=== PATIENT | male | born 1985 | race Caucasian/White ===

== ENCOUNTER 2024-11-29 19:53 | Inpatient (IN) | payer MEDICAID, SELFPAY ==
[2024-11-29 19:54] VITALS: BP 125/100; PULSE 92; RESP 24; TEMP 36.2; O2SAT 100; BMI 25.0
[2024-11-29] MEDS: 0.9% Normal Saline (1000mL) 1,000 ML 1000 ML IV (21:19)
--- NOTE | 2024-11-29 21:19 | EDS_ITS ---
HPI History of Present Illness Chief Complaint: Substance Abuse Narrative Narrative: Chief complaint and HPI: 39-year-old male with past medical history of liver cirrhosis secondary to alcohol abuse, anxiety presents for evaluation of alcohol withdrawal and requesting detox. Patient states that he missed multiple doses of his mental health medications. This caused frequent panic attacks in which he started drinking alcohol. He states he has drank for 4 days straight about a half a gallon of vodka a day. He last drank at 1730 tonight. He endorses some nausea and anxiety. He would like detox. Has been through detox in the past. Review of systems: See HPI Medications: As listed on the chart Allergies: As listed on the chart PFSH: Per chart Vital signs: As listed on the chart. Reviewed. Physical exam: Gen: A&O x3, NAD Head: Normocephalic, atraumatic Eyes: No sclera icterus, conjunctiva clear ENT: Dry mucous membranes CV: RRR, no murmurs Resp: Lungs CTA BL, no w/r/c GI: Abd soft, non-distended, non-tender, no r/r/g Musc: Full ROM, no deformity Skin: Warm, dry Neuro: Alert, oriented, grossly intact, sensation intact Psych: Cooperative, appropriate mood and affect [facility] Medical History Anxiety Liver fibrosis Cirrhosis of liver Tourette disease Seizure Home Medications ?Medication ?Instructions ?Recorded ?Last Taken ?Type clonidine HCl 0.1 mg tablet 0.1 mg PO BID 11/29/24 Unk nown History hydroxyzine HCl 25 mg tablet 25 mg PO QHS PRN sleep Unknown History melatonin 10 mg capsule 20 mg PO QHS 11/29/24 Unknow n History methadone 10 mg tablet 140 mg PO DAILY 11/29/24 Unk nown History metoprolol succinate PO DAILY 11/29/24 Unknown Hi story pantoprazole PO BID 11/29/24 Unknown Hist ory venlafaxine 75 mg tablet 75 mg PO DAILY 11/29/24 Unkn own History Allergy/AdvReac Type Severity Reaction Status Date / Time No Known Allergies Allergy Verified 11/29/24 19:54 Social History Smoking Status: Current every day smoker tobacco type: cigarettes EXAM Physical Exam Const Vital Signs: 11/29/24 19:54 11/29/24 21:21 11/29/24 21:21 Temperature 97.2 F L 97.2 F L Temperature Source Temporal Oral Pulse Rate 92 72 70 Respiratory Rate 24 H 16 16 Blood Pressure 125/100 H 145/90 H 145/90 H Blood Pressure Mean 108 108 108 Blood Pressure Source Monitor Blood Pressure Position Semi-Fowlers Blood Pressure Location Right Arm Pulse Ox 100 99 99 Oxygen Delivery Method Room Air Room Air Room Air 11/29/24 22:00 11/29/24 22:46 11/29/24 23:00 Temperature 98.7 F Temperature Source Pulse Rate 78 77 77 Respiratory Rate 16 16 18 Blood Pressure 134/90 H 133/66 H 122/77 H Blood Pressure Mean 104 88 92 Blood Pressure Source Blood Pressure Position Blood Pressure Location Pulse Ox 98 98 97 Oxygen Delivery Method Room Air Room Air 11/30/24 00:00 Temperature Temperature Source Pulse Rate 81 Respiratory Rate 16 Blood Pressure 118/74 Blood Pressure Mean 88 Blood Pressure Source Blood Pressure Position Blood Pressure Location Pulse Ox 98 Oxygen Delivery Method Room Air MDM MDM MDM Narrative Medical decision making narrative: 39-year-old male with past medical history of liver cirrhosis secondary to alcohol abuse, anxiety presents for evaluation of alcohol withdrawal and requesting detox. Patient states that he missed multiple doses of his mental health medications. This caused frequent panic attacks in which he started drinking alcohol. He states he has drank for 4 days straight about a half a gallon of vodka a day. He last drank at 1730 tonight. He endorses some nausea and anxiety. He would like detox. Differential diagnosis includes but is not limited to alcohol intoxication, alcohol withdrawal, requesting alcohol detox, dehydration, EMELY, cirrhosis. NS bolus, Ativan, Zofran ordered for symptoms. Laboratory workup ordered. CBC without leukocytosis. Patient has anemia with hemoglobin of 12.5. Thrombocytopenia with platelet count of 141. INR 1.6. CMP with AST transaminitis at 109. Secondary to his alcohol abuse. No EMELY. Drug screen positive for methadone and THC. Patient is on methadone outpatient. Alcohol level 33.5. Patient will warrant admission for detox. Patient discussed with the hospitalist who accepted admission. Patient was updated on the results and further understand the plan. Impression: 1. Alcohol intoxication with alcohol abuse 2. AST transaminitis 3. Requesting alcohol detox 4. Polysubstance abuse Lab Data Labs: Laboratory Results - last 24 hr 11/29/24 11/29/24 20:14 21:19 WBC 5.8 RBC 4.14 L Hgb 12.5 L Hct 37.0 L MCV 89.4 MCH 30.2 MCHC 33.8 RDW Std Deviation 45.7 H RDW Coeff of Jimy 14.1 Plt Count 141 L MPV 10.1 Immature Gran % (Auto) 0.200 Neut % (Auto) 63.3 Lymph % (Auto) 28.2 [place] % (Auto) 7.5 Eos % (Auto) 0.5 Baso % (Auto) 0.3 Absolute Neuts (auto) 3.6 Absolute Lymphs (auto) 1.62 Nucleated RBC % 0 PT 19.7 H INR 1.6 Sodium 138 Potassium 4.7 Chloride 100 Carbon Dioxide 23.8 Anion Gap 14 BUN 2 L Creatinine 0.55 L Estim Creat Clear Calc 205.80 Est GFR (MDRD) Non-Af 130 BUN/Creatinine Ratio 4.3 L Glucose 87 Calcium 9.7 Total Bilirubin 1.48 H AST 109 H ALT 33 Alkaline Phosphatase 261 H Total Protein 8.1 Albumin 3.8 Globulin 4.3 H Albumin/Globulin Ratio 0.9 Urine Opiates Screen NEGATIVE U Buprenorphine Qual NEGATIVE Ur Oxycodone Screen NEGATIVE Urine Methadone Screen PRESUMPTIVE POSITIVE Urine Fentanyl Screen NEGATIVE Ur Barbiturates Screen NEGATIVE Ur Phencyclidine Scrn NEGATIVE Ur Amphetamines Screen NEGATIVE U Benzodiazepines Scrn NEGATIVE Urine Cocaine Screen NEGATIVE U Cannabinoids Screen PRESUMPTIVE POSITIVE Ethyl Alcohol 33.5 H Discharge Plan Triage Chief Complaint: Substance Abuse ED Provider: Amilcar Dumont Dx/Rx/DC Orders Prescriptions: No Action metoprolol succinate PO DAILY venlafaxine 75 mg tablet 75 mg PO DAILY clonidine HCl 0.1 mg tablet 0.1 mg PO BID hydroxyzine HCl 25 mg tablet 25 mg PO QHS PRN (Reason: sleep) pantoprazole [Protonix] PO BID melatonin 10 mg capsule 20 mg PO QHS methadone 10 mg tablet 140 mg PO DAILY Primary Care Provider: Care Physician,No Primary Referrals: Care Physician,No Primary [Primary Care Provider, Medical] Print Language: Turkmen
[2024-11-29 21:21] VITALS: BP 145/90; PULSE 70; PULSE 72; RESP 16; TEMP 36.2; O2SAT 99
[2024-11-29 21:39] LABS: Barbiturate Urine NEGATIVE (< 200 ng/mL); Benzodiazepine Urine NEGATIVE (< 200 ng/mL); PCP Urine NEGATIVE (< 25 ng/mL); THC Urine PRESUMPTIVE POSITIVE (< 50 ng/mL)
[2024-11-29 21:49] LABS: Hematocrit 37.0 % (40-54); Hemoglobin 12.5 g/dL (13.0-16.5); Immature Granulocytes Count 0.010 X10^3/uL (0.0-0.0); Mean Corp Hgb Conc 33.8 g/dL (32-36); Mean Corpuscular Volume 89.4 fL (80-94); Mean Platelet Vol. 10.1 fl (6.2-12.0); NRBC Flagged by Analyzer 0 % (0-5); Platelet Count 141 K/mm3 (150-450); RBC Distribution Width CV 14.1 % (11.6-14.6); RBC Distribution Width SD 45.7 fl (35.1-43.9); Red Blood Count 4.14 M/mm3 (4.6-6.2); White Blood Count 5.8 K/mm3 (4.4-11.0)
[2024-11-29 22:00] VITALS: BP 134/90; PULSE 78; RESP 16; O2SAT 98
[2024-11-29 22:17] LABS: Prothrombin Time (Protime)PT. 19.7 SECONDS (11.7-14.9)
[2024-11-29 22:30] LABS: Alcohol, Blood (Medical)-Serum 33.5 mg/dL (<=10.0)
[2024-11-29 22:36] LABS: AST(SGOT) 109 U/L (<=37); Alanine Aminotransfer ALT/SGPT 33 U/L (<=46); Albumin, Serum 3.8 g/dL (3.5-5.0); Alkaline Phosphatase 261 U/L (40-129); Anion Gap 14 (5-15); BUN 2 mg/dL (4-19); Calcium,Total 9.7 mg/dL (7.6-11.0); Carbon Dioxide 23.8 mmol/L (21.0-32.0); Chloride 100 mmol/L (98-108); Estimated Creatinine Clearance 205.80 ml/min (50-250); Globulin 4.3 g/dL (2.2-4.2); Glucose 87 mg/dL (70-99); Potassium 4.7 mmol/L (3.3-5.1)
[2024-11-29 22:46] VITALS: BP 133/66; PULSE 77; RESP 16; TEMP 37.1; O2SAT 98
[2024-11-29 22:48] LABS: BUN/Creat Ratio 4.3 RATIO (10-20)
[2024-11-29 23:00] VITALS: BP 122/77; PULSE 77; RESP 18; O2SAT 97
[2024-11-30] VITALS (9 sets, daily range): BP systolic 112–133; BP diastolic 60–79; PULSE 56–81; RESP 16–18; TEMP 36.1–37; O2SAT 97–98; BMI 24.5
--- NOTE | 2024-11-30 00:22 | HP.PCM.HOS_ITS ---
[facility] - General General Date of Admission: 11/30/24 Date of Service: 11/30/24 Chief Complaint: Requesting EtOH Detox. HPI Narrative RORO NIETO, is a 39 M with a past medical history of essential hypertension; on metoprolol and clonidine twice daily, chronic tobacco abuse, history of opiate abuse; on methadone 140 mg daily, history of EtOH abuse; with cirrhosis and history of EtOH detox, history of seizure disorder; currently not on treatment, history of Tourette syndrome, depression; on venlafaxine and GERD; on pantoprazole who presents to [facility] ER requesting EtOH detox. Mr. Nieto reports his symptoms began a few days prior to admission after he missed multiple doses of his mental health medications which caused frequent panic attacks which he states triggered him to start drinking alcohol. He states he has drank ~1/2 gallon of vodka daily for the past 4 days with his last drink at 17:30 hours on the evening of November 29, 2024. He admits to associated nausea and anxiety. In the ER he was noted to have a VENITA of 33.5 mg/dL with UDS positive for methadone and cannabinoids. He was then admitted to the general medical floor for treatment under the EtOH detox protocol for a state that is expected to extend beyond 2 midnights. [facility] Medical History Anxiety Liver fibrosis Cirrhosis of liver Tourette disease Seizure Home Medications ?Medication ?Instructions ?Recorded ?Last Taken ?Type clonidine HCl 0.1 mg tablet 0.1 mg PO BID anxiety 11/10 03/05 Unknown History hydroxyzine HCl 25 mg tablet 25 mg PO QHS PRN sleep Unknown History melatonin 10 mg capsule 20 mg PO QHS sleep 11/29/24 Unknown History methadone 10 mg tablet 140 mg PO DAILY opiates and 11/29/24 Unknown History alcohol cravings and anxiety metoprolol succinate 50 mg PO DAILY palpitations 11/29/24 Unknown History pantoprazole 20 mg PO BID gerd 11/29/24 U nknown History venlafaxine 75 mg tablet 75 mg PO DAILY anxiety 11/29 Unknown History Allergy/AdvReac Type Severity Reaction Status Date / Time No Known Allergies Allergy Verified 11/29/24 19:54 Social History Smoking Status: Current every day smoker tobacco type: cigarettes ROS ROS Narrative Review of Systems: Constitutional: Patient denies fever or chills. Eyes: Patient denies changes in vision or discharge from eyes. ENT: Patient denies runny nose, sore throat or ear pain. Resp: Patient denies shortness of breath or cough. CV: Patient denies chest pain, palpitations, heart racing or lower extremity edema. GI: Patient admits to nausea but he denies vomiting, abdominal pain, constipation or diarrhea. : Patient denies dysuria or hematuria. MSK: Patient denies arthralgias or myalgias. Skin: Patient denies rash, abscess, wounds or jaundice. Psych: Patient admits to depression with anxiety and panic attacks triggering drinking as per HPI. He denies SI or HI. Neuro: Patient denies headache, paresthesias, hallucinations, seizures or focal neurologic deficits. Allergy: Patient denies lip swelling, tongue swelling or urticaria. Hematology: Patient denies easy bleeding or easy bruisability. Endocrinology: Patient denies polyuria, polydipsia, polyphagia or heat/cold intolerance. 14 point ROS otherwise negative except for positives noted above HPI. Vital Signs Vital Signs Vital Signs: 11/29/24 19:54 11/29/24 21:21 11/29/24 21:21 Temperature 97.2 F L 97.2 F L Temperature Source Temporal Oral Pulse Rate 92 72 70 Respiratory Rate 24 H 16 16 Blood Pressure 125/100 H 145/90 H 145/90 H Blood Pressure Mean 108 108 108 Blood Pressure Source Monitor Blood Pressure Position Semi-Fowlers Blood Pressure Location Right Arm Pulse Ox 100 99 99 Oxygen Delivery Method Room Air Room Air Room Air 11/29/24 22:00 11/29/24 22:46 11/29/24 23:00 Temperature 98.7 F Temperature Source Pulse Rate 78 77 77 Respiratory Rate 16 16 18 Blood Pressure 134/90 H 133/66 H 122/77 H Blood Pressure Mean 104 88 92 Blood Pressure Source Blood Pressure Position Blood Pressure Location Pulse Ox 98 98 97 Oxygen Delivery Method Room Air Room Air 11/30/24 00:00 Temperature Temperature Source Pulse Rate 81 Respiratory Rate 16 Blood Pressure 118/74 Blood Pressure Mean 88 Blood Pressure Source Blood Pressure Position Blood Pressure Location Pulse Ox 98 Oxygen Delivery Method Room Air Weight Weight: 190 lb 0.615 oz Body Mass Index (BMI) 25.0 Physical Exam Const alert, oriented x3, no apparent distress, average body habitus and healthy appearing General Appearance: cooperative HEENT normocephalic, head/scalp atraumatic, hearing grossly normal bilaterally and moist oral mucous membranes Eyes PERRL, EOMs intact bilaterally and conjunctivae normal Neck no lymphadenopathy, supple and no JVD Resp normal respiratory effort, no retractions, no use of accessory muscles and clear to auscultation bilaterally Cardio regular rate and regular rhythm GI normal to inspection, nondistended, normoactive bowel sounds, soft to palpation, non-tender and non-distended Extremity normal to inspection, full ROM and no clubbing, cyanosis or edema Skin Skin Narrative: Patient has evidence of rash, abscess, wounds or jaundice. Neuro oriented x3, CN's II-XII intact bilaterally, moves all extremities and no focal motor deficits Sensorium / Orientation: awake, alert, oriented to person, oriented to place and oriented to time Speech: speech normal Psych affect normal Results Medical Records Data Attestation: I reviewed the patient's medical records Lab / Micro Data Attestation: I reviewed the patient's lab results. 11/29/24 21:19 11/29/24 21:19 Labs: Laboratory Results - last 24 hr 11/29/24 20:14: Urine Opiates Screen NEGATIVE, U Buprenorphine Qual NEGATIVE, Ur Oxycodone Screen NEGATIVE, Urine Methadone Screen PRESUMPTIVE POSITIVE, Urine Fentanyl Screen NEGATIVE, Ur Barbiturates Screen NEGATIVE, Ur Phencyclidine Scrn NEGATIVE, Ur Amphetamines Screen NEGATIVE, U Benzodiazepines Scrn NEGATIVE, Urine Cocaine Screen NEGATIVE, U Cannabinoids Screen PRESUMPTIVE POSITIVE 11/29/24 21:19: WBC 5.8, RBC 4.14 L, Hgb 12.5 L, Hct 37.0 L, MCV 89.4, MCH 30.2, MCHC 33.8, RDW Std Deviation 45.7 H, RDW Coeff of Jimy 14.1, Plt Count 141 L, MPV 10.1, Immature Gran % (Auto) 0.200, Neut % (Auto) 63.3, Lymph % (Auto) 28.2, [place] % (Auto) 7.5, Eos % (Auto) 0.5, Baso % (Auto) 0.3, Absolute Neuts (auto) 3.6, Absolute Lymphs (auto) 1.62, Nucleated RBC % 0, PT 19.7 H, INR 1.6, Sodium 138, Potassium 4.7, Chloride 100, Carbon Dioxide 23.8, Anion Gap 14, BUN 2 L, C reatinine 0.55 L, Estim Creat Clear Calc 205.80, Est GFR (MDRD) Non-Af 130, B UN/Creatinine Ratio 4.3 L, Glucose 87, Calcium 9.7, Total Bilirubin 1.48 H, AST 109 H, ALT 33, Alkaline Phosphatase 261 H, Total Protein 8.1, Albumin 3.8, G lobulin 4.3 H, Albumin/Globulin Ratio 0.9, Ethyl Alcohol 33.5 H Assessment & Plan Assessment/Plan (1) Chronic alcohol abuse: (2) History of drug abuse: (3) Tobacco abuse: (4) Depression: QUALIFIERS: Depression Type: unspecified Qualified Code(s): F32.A - Depression, unspecified (5) Anxiety disorder with panic attacks: PLAN: Plan 1. Impending EtOH withdrawal in the setting of Chronic EtOH Abuse; with cirrhosis with a VENITA of 33.5 mg/dL present on admission - Admit to general medical floor for treatment under the EtOH detoxification protocol primarily consisting of phenobarbital taper, thiamine, folate and other supportive medications. EtOH cessation will be strongly encouraged. Finally, we will consult case management see this patient on rounds in the a.m. to help refer him to the [facility] program without appreciated advanced 2. UDS positive for methadone and cannabinoids complicating #1 - Continue methadone to prevent concomitant opiate withdrawal. Cannabis cessation will be strongly encouraged. 3. Tobacco Abuse compounding #1 & #2 - Tobacco Cessation will be strongly encouraged with Nicotine patch offered to control cravings. 4. Depression with anxiety and panic attacks; on venlafaxine - Resume venlafaxine as previous. 5. Essential hypertension; on metoprolol and clonidine twice daily - Maintain home regimen as before. 6. History of seizure disorder; currently not on treatment - Give IV lorazepam prn for breakthrough seizure activity. 7. History of Tourette syndrome - Noted with no evidence of tics or verbal outbursts. 8. GERD; on pantoprazole - Maintain PPI. 9. DVT prophylaxis - Enoxaparin 40 mg sq daily plus up ad cameron. Total time: Approximately (but not less than) 55 minutes. Charges/Coding Visit Charges Inpatient E&M: 64409 Init Hosp L2
--- NOTE | 2024-11-30 07:45 | PN.HOSP_ITS ---
Reason for Visit Chief Complaint: Requesting EtOH Detox. Subjective Subjective Feeling terror. Objective Data Objective Data Vital Signs: Vital Signs Temp Pulse Resp BP Pulse Ox O2 Del Method 36.6 C 71 18 121/79 H 98 Room Air 11/30/24 05:47 11/30/24 05:47 11/30/24 05:47 11/30/24 05:47 11/30/24 05:47 11/30/24 05:47 Oxygen Delivery Method Room Air Weight: 84.323 kg Body Mass Index (BMI) 24.5 Intake & Output: Intake and Output for Last 24 Hours 11/28/24 11/29/24 11/30/24 23:59 23:59 23:59 Intake Total 1000 / 1000 440 / 440 Balance 1000 / 1000 440 / 440 Lab / Micro Data 11/29/24 21:19 11/29/24 21:19 Labs: Laboratory Results - last 24 hr 11/29/24 20:14: Urine Opiates Screen NEGATIVE, U Buprenorphine Qual NEGATIVE, Ur Oxycodone Screen NEGATIVE, Urine Methadone Screen PRESUMPTIVE POSITIVE, Urine Fentanyl Screen NEGATIVE, Ur Barbiturates Screen NEGATIVE, Ur Phencyclidine Scrn NEGATIVE, Ur Amphetamines Screen NEGATIVE, U Benzodiazepines Scrn NEGATIVE, Urine Cocaine Screen NEGATIVE, U Cannabinoids Screen PRESUMPTIVE POSITIVE 11/29/24 21:19: WBC 5.8, RBC 4.14 L, Hgb 12.5 L, Hct 37.0 L, MCV 89.4, MCH 30.2, MCHC 33.8, RDW Std Deviation 45.7 H, RDW Coeff of Jimy 14.1, Plt Count 141 L, MPV 10.1, Immature Gran % (Auto) 0.200, Neut % (Auto) 63.3, Lymph % (Auto) 28.2, [place] % (Auto) 7.5, Eos % (Auto) 0.5, Baso % (Auto) 0.3, Absolute Neuts (auto) 3.6, Absolute Lymphs (auto) 1.62, Nucleated RBC % 0, PT 19.7 H, INR 1.6, Sodium 138, Potassium 4.7, Chloride 100, Carbon Dioxide 23.8, Anion Gap 14, BUN 2 L, C reatinine 0.55 L, Estim Creat Clear Calc 205.80, Est GFR (MDRD) Non-Af 130, B UN/Creatinine Ratio 4.3 L, Glucose 87, Calcium 9.7, Total Bilirubin 1.48 H, AST 109 H, ALT 33, Alkaline Phosphatase 261 H, Total Protein 8.1, Albumin 3.8, G lobulin 4.3 H, Albumin/Globulin Ratio 0.9, Ethyl Alcohol 33.5 H Physical Exam Const alert and no apparent distress HEENT head/scalp atraumatic and moist oral mucous membranes Resp normal respiratory effort, no retractions, no use of accessory muscles and clear to auscultation bilaterally Cardio regular rate, regular rhythm, S1 normal heart sound and S2 normal heart sound GI normal to inspection, nondistended, normoactive bowel sounds, soft to palpation, non-tender and non-distended Extremity normal to inspection and full ROM Neuro Sensorium / Orientation: awake and alert Assessment & Plan Assessment/Plan (1) Chronic alcohol abuse: (2) History of drug abuse: (3) Tobacco abuse: (4) Depression: QUALIFIERS: Depression Type: unspecified Qualified Code(s): F32.A - Depression, unspecified (5) Anxiety disorder with panic attacks: PLAN: Plan Alcohol withdrawal * on phenobarbital taper * thiamine and folate * addiction medicine to see UDS positive for methadone and cannabinoids complicating sobriety Chronic medical conditions: * Tobacco Abuse compounding. Tobacco Cessation will be strongly encouraged with Nicotine patch offered to control cravings. * Depression with anxiety and panic attacks; on venlafaxine. Recommend he follow up * Essential hypertension; on metoprolol and clonidine twice daily - Maintain home regimen as before. * History of seizure disorder; currently not on treatment - Give IV lorazepam prn for breakthrough seizure activity. * History of Tourette syndrome - Noted with no evidence of tics or verbal outbursts. * GERD; on pantoprazole - Maintain PPI. * Cirrhosis: told he has cirrhosis by his GI physicians in [place]. Advised ongoing discontinuation of alcohol. DVT prophylaxis - Enoxaparin 40 mg sq daily plus up ad cameron. Greater than 35 minutes of which greater than 50% of the time was spent at bedside discussing with him about his depression/anxiety, treatment plan for alcohol withdrawal. Charges/Coding Visit Charges Inpatient E&M: 72815 Subs Hosp L2
[2024-11-30] MEDS: Metoprolol(XL)Succ 25 MG Tablet PO (08:21)
[2024-11-30] MEDS: Nicotine (PBKC) 14 MG Patch TD (08:22)
[2024-11-30] MEDS: Thiamine Hydrochloride 100 MG Tablet PO (08:23)
[2024-11-30] MEDS: Ensure Plus High Protein 120 ML LIQUID PO (08:26)
--- NOTE | 2024-11-30 11:23 | NURSING ---
Pt is upset initially that dietary staff was in to take meal orders. States that he gets chronic panic attacks and that he woke up and not able to eat. Pt states that he is upset his aunt had . Pt is given his phenobarbital and has return to rest.
--- NOTE | 2024-11-30 14:36 | CHAPLAIN ---
Type of Pastoral Visit ___ Initial Visit ___ Follow-up Visit ___ On-call Visit ___ General Patient Visit ___ Spiritual Assessment ___ Family Conference ___ Bereavement ___ Rapid Response ___ Code Blue ___ Other (describe below) Pastoral Care Referral From ___ Patient ___ Family ___ Nurse ___ Physician ___ Shift Mechanic ___ Manager Express ___ Other (describe below) Sacrament/Intervention ___ Active listening ___ Anointing ___ Islam ___ Bereavement ___ Communion ___ Ashlyn exploration ___ ___ Life review ___ Prayer ___ Reconciliation ___ Sacrament of Sick ___ Supportive presence ___ Wedding ___ Other (describe below) Pastoral Comments patient was asleep but awakened to his name; pt says that he is too tired and is not clear in thinking to talk at this time; offer of return tomorrow is accepted
[2024-11-30] MEDS: MELATONIN 10 MG TABLET 20 MG PO (21:29)
[2024-12-01 02:15] VITALS: BP 110/64; PULSE 55; RESP 16; TEMP 36.3; O2SAT 99
--- NOTE | 2024-12-01 08:00 | PN.HOSP_ITS ---
Reason for Visit Chief Complaint: Requesting EtOH Detox. Subjective Subjective Feeling better. Endorses that he had been having n/v for several days, unable to take medications, then drank heavily for 2 days. Today feels better, has been eating. Objective Data Objective Data Vital Signs: Vital Signs Temp Pulse Resp BP Pulse Ox O2 Del Method 36.3 C L 55 L 16 110/64 99 Room Air 12/01/24 02:15 12/01/24 02:15 12/01/24 02:15 12/01/24 02:15 12/01/24 02:15 12/01/24 02:15 Oxygen Delivery Method Room Air Weight: 84.323 kg Body Mass Index (BMI) 24.5 Intake & Output: Intake and Output for Last 24 Hours 11/29/24 11/30/24 12/01/24 23:59 23:59 23:59 Intake Total 1000 / 1000 1890 / 1890 Balance 1000 / 1000 1890 / 1890 Lab / Micro Data 11/29/24 21:19 11/29/24 21:19 Physical Exam Const alert and no apparent distress Constitutional Narrative: up in bed. comfortable. nontoxic. afebrile. Extremity normal to inspection Neuro Sensorium / Orientation: awake and alert Assessment & Plan Assessment/Plan (1) Chronic alcohol abuse: (2) History of drug abuse: (3) Tobacco abuse: (4) Depression: QUALIFIERS: Depression Type: unspecified Qualified Code(s): F32.A - Depression, unspecified (5) Anxiety disorder with panic attacks: PLAN: Plan Alcohol withdrawal * on phenobarbital taper * thiamine and folate * uncomplicated. Per patient, had only been drinking heavily for 2 days. He will follow up with [facility] for further IOP. UDS positive for methadone and cannabinoids complicating sobriety Chronic medical conditions: * Tobacco Abuse compounding. Tobacco Cessation will be strongly encouraged with Nicotine patch offered to control cravings. * Depression with anxiety and panic attacks; on venlafaxine. Recommend he follow up * Essential hypertension; on metoprolol and clonidine twice daily - Maintain home regimen as before. * History of seizure disorder; currently not on treatment - Give IV lorazepam prn for breakthrough seizure activity. * History of Tourette syndrome - Noted with no evidence of tics or verbal outbursts. * GERD; on pantoprazole - Maintain PPI. * Cirrhosis: told he has cirrhosis by his GI physicians in [place]. Advised ongoing discontinuation of alcohol. DVT prophylaxis - Enoxaparin 40 mg sq daily plus up ad cameron.
[2024-12-01] MEDS: Ensure Plus High Protein 120 ML LIQUID PO (08:38)
[2024-12-01] MEDS: Thiamine Hydrochloride 100 MG Tablet PO (08:39)
[2024-12-01] MEDS: Nicotine (PBKC) 14 MG Patch TD (08:40)
[2024-12-01 08:50] VITALS: BP 110/77; PULSE 56; RESP 16; TEMP 36.9; O2SAT 98
--- NOTE | 2024-12-01 09:59 | DS.PCM_ITS ---
Providers Date of Admission: 11/30/24 Primary Care Physician: Michelle Primary Care Phys Reason For Visit: ETOH DETOX Diagnosis Discharge Diagnosis (1) Chronic alcohol abuse: Status: Chronic Code(s): F10.10 - Alcohol abuse, uncomplicated (2) History of drug abuse: Status: Acute Code(s): F19.11 - Other psychoactive substance abuse, in remission (3) Tobacco abuse: Status: Acute Code(s): Z72.0 - Tobacco use (4) Depression: Status: Acute Code(s): F32.A - Depression, unspecified Qualifiers: Depression Type: unspecified Qualified Code(s): F32.A - Depression, unspecified (5) Anxiety disorder with panic attacks: Status: Acute Code(s): F41.9 - Anxiety disorder, unspecified Plan Alcohol withdrawal * on phenobarbital taper * thiamine and folate * uncomplicated. Per patient, had only been drinking heavily for 2 days. He will follow up with [facility] for further IOP. * pt reports that he takes methadone for his alcohol hisotory and anxiety. UDS positive for methadone and cannabinoids complicating sobriety Chronic medical conditions: * Tobacco Abuse compounding. Tobacco Cessation will be strongly encouraged with Nicotine patch offered to control cravings. * Depression with anxiety and panic attacks; on venlafaxine. Recommend he follow up * Essential hypertension; on metoprolol and clonidine twice daily - Maintain home regimen as before. * History of seizure disorder; currently not on treatment - Give IV lorazepam prn for breakthrough seizure activity. * History of Tourette syndrome - Noted with no evidence of tics or verbal outbursts. * GERD; on pantoprazole - Maintain PPI. * Cirrhosis: told he has cirrhosis by his GI physicians in [place]. Advised ongoing discontinuation of alcohol. DVT prophylaxis - Enoxaparin 40 mg sq daily plus up ad cameron. Medications at Discharge Home Medications clonidine HCl 0.1 mg tablet 0.1 mg PO BID anxiety 11/29/24 hydroxyzine HCl 25 mg tablet 25 mg PO QHS PRN sleep 11/29/24 melatonin 10 mg capsule 20 mg PO QHS sleep 11/29/24 methadone 10 mg tablet 140 mg PO DAILY opiates and alcohol cravings and anxiety 11/29/24 metoprolol succinate 50 mg PO DAILY palpitations 11/29/24 pantoprazole 20 mg PO BID gerd 11/29/24 venlafaxine 75 mg tablet 75 mg PO DAILY anxiety 11/29/24 Hospital Course Operations None Procedures None Weight / BMI Weight Weight: 84.323 kg Body Mass Index (BMI) 24.5 ABG / Lab / Microbiology Data 11/29/24 21:19 11/29/24 21:19 D/C Instructions DC O2, CPAP, BIPAP Needs Home O2 Discharge instructions: No Meaningful Use Info Meaningful Use Meaningful Use Diagnoses (Choose all that apply): None applicable Discharge Plan Admission Admit Date/Time: 11/30/24 01:34 Primary Reason for Your Visit: alcohol withdrawal. Attending Provider: Joe Mcmillan Primary Care Provider: Orquidea Reid,Michelle Primary Consulting Providers: Lázaro Brush Discharge Orders/Prescriptions Prescriptions: Continued metoprolol succinate 50 mg PO DAILY venlafaxine 75 mg tablet 75 mg PO DAILY clonidine HCl 0.1 mg tablet 0.1 mg PO BID hydroxyzine HCl 25 mg tablet 25 mg PO QHS PRN (Reason: sleep) pantoprazole [Protonix] 20 mg PO BID melatonin 10 mg capsule 20 mg PO QHS methadone 10 mg tablet 140 mg PO DAILY Referrals / Follow Up: Care Physician,No Primary [Primary Care Provider, Medical] Disposition Disposition (needs filled in before D/C Order can be placed): Home, Self Care Charges/Coding Visit Charges Inpatient E&M: 03387 Disch Hosp
--- NOTE | 2024-12-01 10:22 | PHA.DC.MR.R ---
Pharmacy MA Med Reconciliation Pharmacy Service has performed discharge medication reconciliation for this patient. The patient's discharge medication list was reviewed for discrepancies and discrepancies were resolved. Medications at Discharge Home Medications clonidine HCl 0.1 mg tablet 0.1 mg PO BID anxiety 11/29/24 hydroxyzine HCl 25 mg tablet 25 mg PO QHS PRN sleep 11/29/24 melatonin 10 mg capsule 20 mg PO QHS sleep 11/29/24 methadone 10 mg tablet 140 mg PO DAILY opiates and alcohol cravings and anxiety 11/29/24 metoprolol succinate 50 mg PO DAILY palpitations 11/29/24 pantoprazole 20 mg PO BID gerd 11/29/24 venlafaxine 75 mg tablet 75 mg PO DAILY anxiety 11/29/24
--- NOTE | 2024-12-01 10:46 | CASEMGMT ---
Social Work- SW provided transportation information including for Caitlyn GERMAN Pt able to call and schedule independently. VANITA Christensen
[2024-12-01 11:59] VITALS: BP 122/70; PULSE 59; RESP 18; TEMP 36.9; O2SAT 98
--- NOTE | 2024-12-01 13:15 | CHAPLAIN ---
Type of Pastoral Visit ___ Initial Visit _x__ Follow-up Visit ___ On-call Visit ___ General Patient Visit ___ Spiritual Assessment ___ Family Conference ___ Bereavement ___ Rapid Response ___ Code Blue ___ Other (describe below) Pastoral Care Referral From _x__ Patient ___ Family ___ Nurse ___ Physician ___ Fabrication Specialist ___ Tank Furnace Operator ___ Other (describe below) Sacrament/Intervention _x__ Active listening ___ Anointing ___ Mormonism ___ Bereavement ___ Communion ___ Ashlyn exploration ___ ___ Life review ___ Prayer ___ Reconciliation ___ Sacrament of Sick _x__ Supportive presence ___ Wedding ___ Other (describe below) Pastoral Comments patient is more alert and awake today than yesterday; pt is soon to be discharged; pt says that he is feeling better and has good support for going home; pt denies having further worries or needs; pt states that he has a ashlyn community that is helpful to him; affirmation and encouragement given
== END 2024-12-01 12:15 | disposition home or self-care (01) | DRG 775 ==
LOC: ED 21:47 → MS3 11-30 01:42
PROVIDERS: Admitting Provider Internal Medicine; Emergency Provider Surgery
DX: F10.139 Alcohol abuse with withdrawal, unspecified (principal); F17.210 Nicotine dependence, cigarettes, uncomplicated; K74.60 Unspecified cirrhosis of liver; G40.909 Epilepsy, unspecified, not intractable, without status epilepticus; I10 Essential (primary) hypertension; F32.A Depression, unspecified; K21.9 Gastro-esophageal reflux disease without esophagitis; F95.2 Tourette's disorder; F41.0 Panic disorder [episodic paroxysmal anxiety]; Z79.899 Other long term (current) drug therapy; Y90.1 Blood alcohol level of 20-39 mg/100 ml
CPT/HCPCS: 80053; 80307; 82077; 85025; 85610; 97802; 99285; A4216; J2405

== ENCOUNTER 2025-02-05 18:45 | Inpatient (IN) | payer MEDICAID, SELFPAY ==
[2025-02-05 18:45] VITALS: BP 159/98; PULSE 112; RESP 18; TEMP 36.8; O2SAT 98; BMI 24.0
--- NOTE | 2025-02-05 18:55 | EDS_ITS ---
HPI History of Present Illness Chief Complaint: [facility]H [facility] Medical History Anxiety Liver fibrosis Cirrhosis of liver Tourette disease Seizure Home Medications ?Medication ?Instructions ?Recorded ?Last Taken ?Type clonidine HCl 0.1 mg tablet 0.1 mg PO BID anxiety 11/10 03/05 Unknown History melatonin 10 mg capsule 20 mg PO QHS sleep 11/29/24 Unknown History venlafaxine 75 mg tablet 75 mg PO DAILY anxiety 11/29 Unknown History hydroxyzine HCl 50 mg tablet 50 mg PO TID 02/05/25 Unk nown History metoprolol succinate 50 mg 50 mg PO DAILY 02/05/25 Unk nown History tablet,extended release 24 hr ondansetron 4 mg disintegrating 4 mg PO Q8H PRN PRN na usea/vomiting 02/05/25 Unknown History tablet pantoprazole 20 mg tablet,delayed 20 mg PO Q12H Unknown History release (Protonix) Allergy/AdvReac Type Severity Reaction Status Date / Time No Known Allergies Allergy Verified 02/05/25 18:46 Surgical History (Updated 02/05/25 @ 19:[address] Bessy Cowan MD) S/P appendectomy Social History housing: homeless Smoking Status: Current every day smoker tobacco type: cigarettes alcohol intake: current alcohol intake frequency: 3 or more drinks per day Alcohol type: hard liquor details: 1-2 gallon vodka daily. substance use type: crack/cocaine, opiates, methamphetamine and other details: Reports using crack/cocaine, methamphetamine, fentanyl only occasionally. EXAM Physical Exam Const Vital Signs: 02/05/25 18:45 Temperature 98.3 F Temperature Source Oral Pulse Rate 112 H Respiratory Rate 18 Blood Pressure 159/98 H Blood Pressure Mean 118 Pulse Ox 98 Oxygen Delivery Method Room Air MDM MDM MDM Narrative Medical decision making narrative: HISTORY OF PRESENT ILLNESS: Chief complaint: Alcohol detox 39-year-old male history of alcohol abuse, polysubstance abuse, GERD, anxiety, liver fibrosis, liver cirrhosis, Tourette's disease and seizure presents with request for alcohol detox. Patient states he drinks daily. Last week was prior to arrival. Notes he has severe anxiety. Notes chronic abdominal pain. Notes vomiting blood. Denies history of esophageal varices. REVIEW OF SYSTEMS: Pertinent positives: Seizure Pertinent negatives: Chest pain, shortness of breath, syncope PHYSICAL EXAM: Nursing triage notes reviewed, Vital signs reviewed Constitutional: please see [facility] HENT: MMM Eyes: Pupils equal round and reactive to light, Extraocular muscles intact Neck: No stridor, no JVD, full neck ROM Lungs: Clear to auscultation, No wheezing or rales. No increased work of breathing, no conversational dyspnea, no accessory muscle use, no nasal flaring. No respiratory distress noted Heart: Regular rate and rhythm, No murmurs, No rubs and No gallops, 2+ distal pulses (radial, femoral, posterior tibial) in all extremities Abdomen: Soft, there is no tenderness, rigidity, rebound or guarding, no obvious peritoneal signs, no palpable pulsatile abdominal masses, no auscultated abdominal bruit : No CVAT Extremities: No edema Neuro: No new focal neurological deficits, cranial nerves II through XII intact, 5/5 strength in all present extremities. Intact sensation to light touch in all present extremities, 2+ reflexes bilateral patella tendons. Skin: No rash or lesions noted MEDICAL DECISION MAKING: Chief Complaint: please see [facility] External records reviewed: Reviewed prior inpatient records. Patient is admitted for alcohol detox in November 2024 Factors affecting care: As per [facility] Social determinants of health: History of alcohol abuse History obtained from others: none Consults: Internal medicine (Dr. Cowan) [facility] Narrative: Patient was initially hypertensive with a blood pressure 159/98, tachycardic with a heart rate of 112, otherwise afebrile and nontoxic-appearing. Exam Obtain medical clearance labs and gave empiric Ativan and phenobarbital given initial tachycardia and hypertension ALL IMAGES (IF OBTAINED) HAVE BEEN PERSONALLY REVIEWED AND INTERPRETED BY MYSELF. EKG with normal sinus rhythm rate of 79, left ax deviation, prolonged QTc 493, no STEMI Serum alcohol elevated consistent with acute intoxication CBC without leukocytosis, severe anemia, no thrombocytopenia. BMP with mild hypokalemia otherwise no significant Obion abnormalities, EMELY, signs of metabolic acidosis or endorgan hypoperfusion LFTs consistent with cirrhosis Urine tox cream pending Lipase is wnl indicating no pancreatic inflammation. The synthesis of the patient's history, physical exam, labs images suggest need for alcohol detox in inpatient setting. Discussed with hospitalist who agreed to admit the patient to a rehab program. The patient and/or family, caregivers express understanding. The patient and/or family, caregivers agrees with the plan. Shared decision making: I will have a discussion with the patient and or visitors regarding risk/benefits of further testing or admission. They will be made aware of of the risk/benefits inherent in this decision they will be given the opportunity to voice understanding. Total critical care time today provided was at least 0 minutes. This excludes separately billable procedures. Critical care time (if documented) is secondary to the patient having high probability of clinically significant/life threatening deterioration in the patient's condition which required my urgent intervention. Impression: 1. Encounter for admission to alcohol detoxification program 2. History of alcohol abuse 3. History of liver cirrhosis Dispo: Admit to [facility] This note was generated with [employer] dictation software. It may contain incorrect words, spelling, and punctuation that were not noted in review of the chart prior to signing. Discharge Plan Triage Chief Complaint: ETOH Intox Other Complaint: Substance Abuse ED Provider: Kulwinder Alva Dx/Rx/DC Orders Primary Care Provider: Care Physician,No Primary
--- NOTE | 2025-02-05 19:06 | EKG12_ITS ---
Test Reason : DYSRHYTHMIA Blood Pressure : */* mmHG Vent. Rate : 79 BPM Atrial Rate : 79 BPM P-R Int : 178 ms QRS Dur : 90 ms QT Int : 430 ms P-R-T Axes : 52 -1 24 degrees QTcB Int : 493 ms Normal sinus rhythm Minimal voltage criteria for LVH, may be normal variant ( R in aVL ) QTcB >= 480 msec Abnormal ECG Confirmed by Lázaro Aguillon ([id number]), newspaper photo editor VILMA YA ([id number]) on 02/07/2025 9:58:29 AM Referred By: Confirmed By: Lázaro Aguillon
--- NOTE | 2025-02-05 19:06 | RAD_ITS ---
PROCEDURE: CHEST 1 VIEW (PORTABLE) 02/05/2025 REASON FOR EXAM: COUGH TECHNIQUE: Frontal view of the chest. FINDINGS: There are no focal opacities, pleural effusions, or pneumothoraces. The heart size is unremarkable. The upper abdomen is unremarkable. The osseous structures are intact. RAD/Chest 1 View (Portable) IMPRESSION: No acute cardiopulmonary findings. Reading Location: [id number]
[2025-02-05 19:18] VITALS: BP 166/84; PULSE 85; RESP 16; TEMP 36.8; O2SAT 100
--- NOTE | 2025-02-05 19:19 | PCM.HP.STD ---
HPI - General General Date of Admission: 02/05/25 Date of Service: 02/05/25 Chief Complaint: Requesting EtOH detoxification HPI Narrative The patient is a 36 y/o M w/ PMHx: Chronic tachycardia/palpitations, Polysubstance abuse (uses varies agents including crack/meth/fentanyl but reportedly not regularly and denies wanting any detox for this or requiring any detox for specifically opiate use), EtOH abuse (~1-2 gallon vodka daily, drinking upon arrival into the ED), Chronic alcoholic associated pancreatitis, PTSD/Anxiety and Depression/Tourette's disease, Tobacco use, EtOH cirrhosis/liver fibrosis secondary to EtOH abuse who presents to the [facility] on 02/05/25 w/ requested EtOH detoxification with severe anxiety and phobia withdrawing which had prompted him to bring his bottle of vodka into the ED and continued to drink. He does report chronic pancreatitis associated with his alcohol abuse and has intermittent nausea and vomiting frequently surviving on ensures. In the ED workup included T98.3, heart 112, BP 159/98, respiratory rate 18, 98% on room air with most recent repeat vitals T98.3, heart rate 85, BP 166/84, respiratory rate 16, 100% room air, pending of alcohol level, lipase, CBC, BMP, liver profile, UDS upon request evaluation of patient. Given patient significant anxiety and agitation in the ED while awaiting level return patient administered phenobarbital 97.2 mg p.o. x 1 and Ativan 2 mg IV x 1. [facility] Medical History Polysubstance abuse Tobacco use Anxiety and depression PTSD (post-traumatic stress disorder) History of seizure due to alcohol withdrawal Liver fibrosis Cirrhosis of liver Tourette disease Home Medications ?Medication ?Instructions ?Recorded ?Last Taken ?Type clonidine HCl 0.1 mg tablet 0.1 mg PO BID anxiety 11/29/24 Unknown History melatonin 10 mg capsule 20 mg PO QHS sleep 11/29/24 Unknown History venlafaxine 75 mg tablet 75 mg PO DAILY anxiety 11/29/24 Unknown History hydroxyzine HCl 50 mg tablet 50 mg PO TID 02/05/25 Unknown History metoprolol succinate 50 mg 50 mg PO DAILY 02/05/25 Unknown History tablet,extended release 24 hr ondansetron 4 mg disintegrating 4 mg PO Q8H PRN PRN nausea/vomiting 02/05/25 Unknown History tablet pantoprazole 20 mg tablet,delayed 20 mg PO Q12H 02/05/25 Unknown History release (Protonix) Allergy/AdvReac Type Severity Reaction Status Date / Time No Known Allergies Allergy Verified 02/05/25 18:46 adopted (Does not know his maternal or paternal family history, adopted.) Surgical History S/P appendectomy Social History (Updated 02/05/25 @ 19:[address] Bessy Cowan MD) housing: homeless Smoking Status: Current every day smoker tobacco type: cigarettes Smoking packs per day: 1 Smoking cigarettes per day: 20.0 alcohol intake: current alcohol intake frequency: 3 or more drinks per day Alcohol type: hard liquor details: 1-2 gallon vodka daily. substance use type: crack/cocaine, opiates, methamphetamine and other details: Reports using crack/cocaine, methamphetamine, fentanyl only occasionally. ROS ROS Narrative Admission Review of Systems: CONSTITUTIONAL: No weight loss, fever, chills, + weakness or fatigue. HEENT: Eyes: No visual loss, blurred vision, double vision or yellow sclerae. Ears, Nose, Throat: No hearing loss, sneezing, congestion, runny nose or sore throat. SKIN: No rash or itching, lesions, wounds except + occasional stage ecchymoses, abrasions.. CARDIOVASCULAR: No chest pain, chest pressure or chest discomfort, palpitations, edema, orthopnea, syncopal events. RESPIRATORY: No shortness of breath, cough or sputum, wheezing, hemoptysis. GASTROINTESTINAL: + Intermittent nausea and emesis with chronic pancreatitis, loose stools chronically, occasional epigastric discomfort. No anorexia, melena, BRBPR. GENITOURINARY: No dysuria, frequency, urgency or retention. NEUROLOGICAL: + History of alcohol withdrawal seizures previously. No headache, dizziness, syncope, paralysis, ataxia, numbness or tingling in the extremities, focal weakness, change in bowel or bladder control. MUSCULOSKELETAL: + muscle, back pain, joint pain or stiffness. HEMATOLOGIC: + Unclear if any anemia history, currently denying, easy bleeding/bruising. LYMPHATICS: No enlarged nodes. No history of splenectomy. PSYCHIATRIC: + History of anxiety and depression/PTSD. ENDOCRINOLOGIC: No reports of sweating, cold or heat intolerance. No polyuria or polydipsia. ALLERGIES: No history of asthma, hives, eczema or rhinitis. Patient's Goals Of Care . What would you like to achieve or improve as a result of your hospital stay?: Successfully undergo EtOH withdrawal treatment. Vital Signs Vital Signs Vital Signs: 02/05/25 18:45 Temperature 98.3 F Temperature Source Oral Pulse Rate 112 H Respiratory Rate 18 Blood Pressure 159/98 H Blood Pressure Mean 118 Pulse Ox 98 Oxygen Delivery Method Room Air Weight Weight: 182 lb 1.6 oz Body Mass Index (BMI) 24.0 Physical Exam Narrative Physical Examination: General: Awake, alert, oriented x 3 and cooperative, seated upright in ED bed, very anxious. Skin: Normal color, normal turgor, no icterus, no cyanosis except occasional stage ecchymoses, abrasion, some dried blood on his hands. HEENT: AT/NC, EOMI, PERRLA, mildly dry MM, no carotid bruits or JVD noted, smells of liquor. Lungs: Diminished, greater bases, appropriate effort, no evidence of any distress, no rales, ronchi or wheezing. Heart: Mildly tachycardic with regular rhythm; no gallop, rub audible. Abdomen: Soft, NTTP including in the epigastric region however patient is distracted during evaluation with discussions, hyperactive BS, no appreciated distention, + HM. Extremities: No cyanosis, no clubbing, no significant distal edema noted. Neurological: Patient awake, alert, oriented as noted, cognitive function suspect likely near his baseline intact although patient has recently given inviting; pupils equally reactive to light and accommodation, cranial nerves grossly normal, moving all 4 extremities, no focal deficits, strength moderately globally decreased. Psychiatric: Affect appears anxious, stressed, does have underlying psychiatric history as noted. Assessment & Plan Assessment/Plan (1) Admitted to substance misuse detoxification center: PLAN: Plan The patient is a 36 y/o M w/ PMHx: Chronic tachycardia/palpitations, Polysubstance abuse (uses varies agents including crack/meth/fentanyl but reportedly not regularly and denies wanting any detox for this or requiring any detox for specifically opiate use), EtOH abuse (~1-2 gallon vodka daily, drinking upon arrival into the ED), Chronic alcoholic associated pancreatitis, PTSD/Anxiety and Depression/Tourette's disease, Tobacco use, EtOH cirrhosis/liver fibrosis secondary to EtOH abuse who presents to the [facility] on 02/05/25 w/ requested EtOH detoxification. #1. Acute EtOH abuse with impending acute withdrawal: Will admit to [facility], routine labs obtained in the ED upon presentation and pending upon request evaluation of patient. Given interest in sobriety, will initiate and continue on protocol with taper course of Phenobarbital, as needed gabapentin, Catapres, Bentyl, Vistaril, IV fluids, IV antiemetics, Tylenol as needed for pain. Will consult Case management for assistance for transition to next level of rehabilitation care. Mag, phos pending. Maintain on CIWA protocol concurrently. #2. Polysubstance Abuse, denies IV drug abuse: Patient reports intermittently using crack, meth and fentanyl but states this is only intermittent and he does not feel as though he needs withdrawal treatment for opiate abuse, last usage she knows was potentially 2 days previous and currently denies any withdrawal symptoms specifically at this time. Offered HIV, hepatitis and syphilis testing and patient declined stating he was recently tested and negative. #3. Alcoholic cirrhosis/liver fibrosis secondary ongoing chronic alcohol abuse, chronic alcoholic pancreatitis: Pending liver profile as well as lipase level upon presentation, no significant abdominal epigastric discomfort on evaluation however, if notable dysfunction on liver profile noted would opt to also potentially obtain coags to be cautious. #4. PTSD/anxiety depression/Tourette's disease: Will continue patient home venlafaxine regimen, noted to lower-level 75 mg only, given patient reports ongoing symptoms and usage of alcohol and substances to assist likely would benefit from alteration of his regimen and continued ongoing aggressive counseling outpatient. #5. Sinus tachycardia/palpitations: Will continue patient home chronic metoprolol regimen, may hold as needed. #6. Tobacco Abuse: Encouraged cessation, inpatient consultation per RT, NR if desired. #7. DVT prophylaxis: Low risk type presentation, encourage ambulation. Charges/Coding Visit Charges Inpatient E&M: 88673 Init Hosp L3
--- OUTSIDE RECORDS SUMMARY | 2025-02-05 19:23 | XMS RPT_ITS | CCD ---
Author Organization [facility] CliniSyor Care Team Providers Care Coating Machine Feeder Name Role Phone GALVEZ, JINA Unavailable Unavailable GALVEZ, JINA Unavailable Unavailable NO REFERRING DR Unavailable Unavailable GALVEZ, JINA Unavailable Unavailable IMCA Unavailable Unavailable GRATZ, NEETU A Unavailable Unavailable GALVEZ, JINA Unavailable Unavailable GALVEZ, JINA Unavailable Unavailable GRATZ, NEETU A Unavailable Unavailable GALVEZ, JINA Unavailable Unavailable GALVEZ, JINA Unavailable Unavailable GRARUBIO, NEETU A Primary Care Unavailable ADELA MCFADDEN Attending Unavailable TINO, NEETU A Primary Care Unavailable ARGELIA STALEY Attending Unavailable ARGELIA STALEY Admitting Unavailable PAOLA GALICIA Consulting Unavailable TINO, NEETU A Primary Care Unavailable AMPARO ALFREDO Consulting Unavailable CARLOZ LANDRUMSPREET Admitting Unavailable LURDES LANDRUM Attending Unavailable TINO, NEETU A Primary Care Unavailable JOSSELINE CORTES Attending Unavailable PAOLA GALICIA Referring Unavailable GRARUBIO, NEETU A Primary Care Unavailable Tino, Neetu A Primary Care Provider German Jiménezgh A Primary Care Provider [phone] [facility] Physicians Primary Care Provider Unav ailable Unavailable Primary Care Provider UnavailCONSTANCE Landon Attending Unavailable TAM HUGHES Primary Care Unavailable Tam Hughes DO Primary Care Provider Tam Hughes DO Primary Care Provider [phone] TAM HUGHES Primary Care Unavailable OLIVIA GILBERT Attending Unavailable BALJINDER DUNLAP Attending Unavailable TAM HUGHES Primary Care Unavailable Lázaro Brush Admitting Unavailable Lázaro Brush Consulting Unavailable Care Physician, No Primary Primary Care Unava ilable Joe Mcmillan Attending Unavailable Joe Mcmillan Consulting Unavailable Lázaro Brush Attending Unavailable Joe Mcmillan Attending Unavailable Lázaro Brush Admitting Unavailable Lázaro Brush Consulting Unavailable Care Physician, No Primary Primary Care Unava ilable Care Physician, No Primary Primary Care Physicia n Unavailable [facility], Dr. Fitzgerald Emergency Departmen t Physician de Kemal DO, Dr. Sesay Admitting Physician Lourdes vailable Brush DO, Dr. Sesay Nurse Practitioner Unav ailable Hipolito DO, Dr. Diaz Attending Physician Hipolito DO, Dr. Diaz Nurse Practitioner AJAY OCHOA Attending Unavailable SAUL, TAM Primary Care Unavailable RICH, TAM Primary Care Unavailable GUILLERMO MON Attending Unavailable RICH, TAM Primary Care Unavailable CORY ADAME Attending Unavaila karan HUGHES, TAM Primary Care Unavailable RICH, TAM Primary Care Unavailable PAULINO SHELTON Admitting Unavailable STONE RAMSEY Consulting Unavailable PAULINO SHELTON Attending Unavailable RICH, TAM Primary Care Unavailable DONALD JULIAN Attending Unavailable CARLITOS ORTA Consulting Unavailable LINNEA LAROSEHNU Admitting Unavailable RICH, TAM Primary Care Unavailable GRACY DYER Attending Unavailable RICH, TAM Primary Care Unavailable DONALD HILL JR Attending Unavailab maricruz HUGHES, TAM Primary Care Unavailable JOSSELINE WEBER Attending Unavailable RICH, TAM Primary Care Unavailable NEVAEH HOWARD Attending Unavailable ANT CARTY Admitting Unavailable RICH, TAM Primary Care Unavailable RICH, TAM Primary Care Unavailable BASSONYA MYERS Attending Unavailable BASEDU SONYA Admitting Unavailable MATTIE DURBIN Attending Unavailable RICH, TAM Primary Care Unavailable REYES PULLIAM Attending Unavailable ISRAEL GARCIA Admitting Unavailable RICH, TAM Primary Care Unavailable ENIO BOYD Attending Unavailable RICH, TAM Primary Care Unavailable MATTIE DURBIN Attending Unavailable RICH, TAM Primary Care Unavailable RICH, TAM Primary Care Unavailable RICH, TAM Primary Care Unavailable MARKIE LYONS Attending Unavailable RICH, TAM Primary Care Unavailable RICH, TAM Primary Care Unavailable LAUREN PEREZ Attending Unavailable RICH, TAM Primary Care Unavailable SEEMA HARTLEY Referring Unavailable HARTLEY, SEEMA Attending Unavailable MERRITTHOGUILLERMO PHIPPS Referring Unavailable GUILLERMO MON Attending Unavailable TAM HUGHES Primary Care Unavailable SAUL, TAM Primary Care Unavailable HARTLEY, SEEMA Referring Unavailable RICH, TAM Primary Care Unavailable LAUREN PEREZ Attending Unavailable RICH, TAM Primary Care Unavailable HARTLEY, SEEMA Referring Unavailable HARTLEY, SEEMA Attending Unavailable SAUL, TAM Primary Care Unavailable HARTLEY, SEEMA Attending Unavailable SAUL, TAM Primary Care Unavailable MATTIE DURBIN Referring Unavailable HARTLEY, SEEMA Attending Unavailable SAUL, TAM Primary Care Unavailable NIKKY ESCOBAR Attending Unavailable Medications Current Medications Medication Drug Class(es) Dates Sig (Normalized) Sig (Original) acetaminophen 500 mg oral tablet (20 sources) Start: 08-24-2024 End: 09-03-2024 take 2 tablets by mouth every six hours as needed for pain acetaminophen (Tylenol) 500 MG tablet Take 2 tablets (1,000 mg) by mouth every 6 hours as needed for mild pain (1-3) for up to 10 days. 30 tablet 08/24/2024 09/03/2024 Active Start: 04-20-2024 End: 04-30-2024 take 2 tablets by mouth every six hours as needed for pain acetaminophen (Tylenol) 325 MG tablet Take 2 tablets (650 mg) by mouth every 6 hours as needed for mild pain (1-3) (Fever GREATER than 100.4 F (38 C)) for up to 10 days. 30 tablet 04/20/2024 04/30/2024 Active Start: 04-16-2024 End: 04-20-2024 take 1 tablet by mouth every six hours as needed for pain acetaminophen (Tylenol) tablet 650 mg Start: 04-04-2024 End: 04-06-2024 take 1 tablet by mouth every six hours as needed for pain and fever acetaminophen (Tylenol) tablet 650 mg Start: 02-05-2024 End: 02-08-2024 take 1 tablet by mouth every six hours as needed for pain and headache and pain 650 mg, Oral, Every 6 hours PRN, mild pain (1-3), headaches, moderate pain (4-6), Starting on Thu02/05/24 at 2019, Maximum dose of acetaminophen is 4000 mg from all sources in 24 hours. Start: 01-20-2024 End: 01-26-2024 take 1 tablet by mouth every six hours as needed for pain and fever acetaminophen (Tylenol) tablet 650 mg Start: 11-18-2023 End: 11-23-2023 take 500 mg by mouth every eight hours Start: 11-04-2022 End: 11-08-2022 take 1 tablet by mouth every six hours as needed for pain and pain and headache and fever acetaminophen (Tylenol) tablet 650 mg Start: 03-15-2022 End: 03-19-2022 take 1 tablet by mouth every six hours as needed for pain and pain and headache and fever acetaminophen (Tylenol) tablet 650 mg calcium carbonate 500 mg chewable tablet (20 sources) Start: 04-20-2024 End: 04-20-2025 calcium carbonate (Tums) 500 MG chewable tablet Chew 1 tablet (500 mg) 3 times daily as needed for heartburn. 30 tablet 04/20/2024 04/20/2025 Active Start: 11-22-2023 End: 11-22-2023 Centrum Adults tablet 1 tablet (2 sources) Start: 07-12-2022 End: 07-11-2022 take 1 tablet by mouth once daily 1 tablet, Oral, Daily, First dose on 07/12/22 at 0900 cloNIDine hydrochloride 0.1 mg oral tablet (20 sources) Central alpha-2 Adrenergic Agonist Start: 11-29-2024 take 1 tablet by mouth twice daily Start: 04-17-2024 End: 04-20-2024 take 0.1 mg by mouth twice daily 0.1 mg, Oral, 2 times daily, First dose on 04/17/24 at 0900 Start: 04-05-2024 End: 04-06-2024 take 1 tablet by mouth every four hours 0.1 mg, Oral, Every 4 hours, First dose on Tu04/05/24 at 0000, HOLD if Sleeping, Sedated, SBP Start: 01-25-2024 End: 01-26-2024 take 1 tablet by mouth every twelve hours 0.1 mg, Oral, Every 12 hours, First dose on 01/25/24 at 1315 Start: 12-13-2023 End: 12-17-2023 take 1 tablet by mouth every eight hours as needed 0.1 mg, Oral, Every 8 hours PRN, withdrawal, Starting on 12/13/23 at 2320, HOLD if SBP Start: 11-18-2023 End: 11-28-2023 Start: 08-19-2023 End: 12-17-2023 take 1 tablet by mouth three times daily cloNIDine (Catapres) 0.1 MG tablet Indications: Motor tic disorder Take 1 tablet (0.1 mg) by mouth 3 times daily. 90 tablet 08/19/2023 09/23/2023 Discontinued (Reorder) Start: 08-11-2023 End: 08-15-2023 take 0.1 mg by mouth three times daily 0.1 mg, Oral, 3 times daily, First dose (after last modification) on Thu08/11/23 at 2100 Start: 11-12-2022 End: 02-08-2024 take 1 tablet by mouth twice daily cloNIDine (Catapres) 0.1 MG tablet Indications: Tourette syndrome Take 1 tablet (0.1 mg) by mouth 2 times daily. 60 tablet 08/15/2023 08/19/2023 Discontinued (Reorder) Start: 11-04-2022 End: 11-07-2023 take 1 tablet by mouth once daily cloNIDine (Catapres) 0.1 MG tablet Take 1 tablet (0.1 mg) by mouth Nightly. 30 tablet 11 11/07/2022 11/12/2022 Discontinued dicyclomine hydrochloride 20 mg oral tablet (19 sources) Anticholinergic Start: 05-22-2024 End: 06-01-2024 take 1 tablet by mouth twice daily dicyclomine (Bentyl) 20 MG tablet Take 1 tablet (20 mg) by mouth 2 times daily for 10 days. 20 tablet 05/22/2024 06/01/2024 Active Start: 01-08-2024 End: 01-26-2024 take 1 tablet by mouth three times daily as needed for pain dicyclomine (Bentyl) 20 MG tablet Take 1 tablet (20 mg) by mouth 3 times daily as needed (Abdominal pain) for up to 10 days. 20 tablet 01/08/2024 01/26/2024 Discontinued (Stop taking at discharge) Start: 11-18-2023 End: 11-28-2023 take 20 mg by mouth every eight hours as needed Start: 08-11-2023 End: 08-15-2023 Start: 11-04-2022 End: 11-08-2022 dicyclomine (Bentyl) capsule 20 mg Start: 07-11-2022 End: 07-11-2022 take 10 mg by mouth four times daily as needed 10 mg, Oral, 4 times daily PRN, gi cramping, Starting on Thu07/11/22 at 0311 Start: 03-17-2022 End: 03-19-2022 take 1 capsule by mouth every six hours as needed dicyclomine (Bentyl) capsule 10 mg docusate sodium 50 mg / sennosides, residential 8.6 mg oral tablet (20 sources) Start: 04-19-2024 End: 04-21-2025 take 2 tablets by mouth once daily senna-docusate sodium (Senokot-S) 8.6-50 MG tablet Take 2 tablets by mouth daily. 60 tablet 11 04/21/2024 04/21/2025 Active Start: 11-19-2023 End: 11-28-2023 Start: 03-17-2022 End: 03-19-2022 senna-docusate sodium (Senok ot-S) 8.6-50 MG tablet 2 tablet doxylamine succinate 25 mg oral tablet (20 sources) Start: 03-30-2024 End: 04-29-2024 take 1 tablet by mouth once daily as needed for sleep doxylamine (Unisom) 25 MG tablet Take 1 tablet (25 mg) by mouth Nightly as needed for sleep. 30 tablet 03/30/2024 Active folic acid 1 mg oral tablet (20 sources) Start: 04-04-2024 End: 04-07-2025 take 1 tablet by mouth once daily folic acid (Folvite) 1 MG tablet Take 1 tablet (1 mg) by mouth daily. 30 tablet 1 04/07/2024 04/07/2025 Active Start: 02-05-2024 End: 02-08-2024 take 1 mg by mouth once daily 1 mg, Oral, Daily, First dose on Thu02/05/24 at 0900 Start: 01-20-2024 End: 01-26-2024 take 1 mg by mouth once daily 1 mg, Oral, Daily, First dose on Thu01/20/24 at 1905 Start: 12-13-2023 End: 12-17-2023 take 1 mg by mouth once daily 1 mg, Oral, Daily, First dose on 12/13/23 at 1415 Start: 11-18-2023 End: 11-28-2023 Start: 10-16-2023 End: 10-18-2023 take 1 mg by mouth once daily 1 mg, Oral, Daily, First dose on Thu10/16/23 at 1530 Start: 08-11-2023 End: 08-15-2023 take 1 mg by mouth once daily 1 mg, Oral, Daily, First dose on Thu08/11/23 at 0900 Start: 06-25-2023 End: 06-28-2023 take 1 mg by mouth once daily 1 mg, Oral, Daily, First dose on Thu06/25/23 at 0900 Start: 11-04-2022 End: 11-08-2022 folic acid (Folvite) tablet 1 mg Start: 03-16-2022 End: 03-19-2022 folic acid (Folvite) tablet 1 mg hydrOXYzine hydrochloride 25 mg oral tablet (20 sources) Antihistamine Start: 11-29-2024 take 1 tablet by haleigh th at bedtime as needed for sleep Start: 04-16-2024 End: 04-20-2024 take 1 capsule by mouth every eight hours as needed for anxiety 50 mg, Oral, Every 8 hours PRN, anxiety, Lacrimation, Rhinorrhea, Starting on 04/16/24 at 2103 Start: 04-04-2024 End: 04-06-2024 take 1 capsule by mouth every eight hours as needed Start: 03-30-2024 End: 04-29-2024 take 1 tablet by mouth every eight hours as needed hydrOXYzine HCl (Atarax) 50 MG tablet Take 1 tablet (50 mg) by mouth every 8 hours as needed for itching. 90 tablet 03/30/2024 Active Start: 02-05-2024 End: 02-08-2024 take 1 capsule by mouth every six hours as needed for anxiety 50 mg, Oral, Every 6 hours PRN, itching, anxiety, Starting on Thu02/05/24 at 2019 Start: 11-18-2023 End: 11-28-2023 take 50 mg by mouth every six hours as needed for anxiety Start: 10-16-2023 End: 10-18-2023 take 50 mg by mouth twice daily as needed for anxiety 50 mg, Oral, 2 times daily PRN, anxiety, Starting on Thu10/16/23 at 1526 Start: 09-23-2023 End: 12-17-2023 take 1 tablet by mouth twice daily as needed for anxiety hydrOXYzine HCl (Atarax) 50 MG tablet Take 1 tablet (50 mg) by mouth 2 times daily as needed for anxiety. 60 tablet 1 09/23/2023 12/17/2023 Discontinued (Stop taking at discharge) Start: 08-15-2023 End: 09-25-2023 take 1 capsule by mouth twice daily as needed for anxiety hydrOXYzine pamoate (Vistaril) 50 MG capsule Take 1 capsule (50 mg) by mouth 2 times daily as needed for anxiety for up to 15 days. 30 capsule 08/15/2023 08/26/2023 Discontinued (Reorder) Start: 08-11-2023 End: 08-15-2023 take 50 mg by mouth twice daily as needed for anxiety 50 mg, Oral, 2 times daily PRN, anxiety, Starting on Thu08/11/23 at 0936 Start: 11-04-2022 End: 06-28-2023 take 1 capsule by mouth every six hours as needed for anxiety and anxiety and anxiety hydrOXYzine pamoate (Vistaril) 50 MG capsule Indications: Anxiety Take 1 capsule (50 mg) by mouth every 6 hours as needed for allergies or anxiety. 90 capsule 6 12/10/2022 06/28/2023 Discontinued (Stop taking at discharge) Start: 07-11-2022 End: 07-11-2022 take 1 tablet by mouth every six hours as needed for anxiety 50 mg, Oral, Every 6 hours PRN, anxiety, Starting on Thu07/11/22 at 0311 Start: 05-02-2022 End: 05-02-2022 hydrOXYzine HCl (Atarax) tab let 25 mg Start: 05-02-2022 End: 11-08-2022 take 1 capsule by mouth every six hours as needed for anxiety hydrOXYzine pamoate (Vistaril) 25 MG capsule Take 1 capsule (25 mg) by mouth every 6 hours as needed for anxiety for up to 10 days. 30 capsule 0 05/02/2022 11/08/2022 Discontinued (Stop taking at discharge) Start: 03-15-2022 End: 03-19-2022 take 1 capsule by mouth every six hours as needed for anxiety hydrOXYzine pamoate (Vistaril) capsule 50 mg ibuprofen 600 mg oral tablet (5 sources) Nonsteroidal Anti-inflammatory Drug Start: 08-24-2024 End: 09-03-2024 take 1 tablet by mouth every six hours as needed for pain ibuprofen 600 MG tablet Take 1 tablet (600 mg) by mouth every 6 hours as needed for mild pain (1-3) for up to 10 days. 40 tablet 08/24/2024 09/03/2024 Active Start: 07-11-2022 End: 07-11-2022 take 1 tablet by mouth every six hours as needed 400 mg, Oral, Every 6 hours PRN, pain 1-10, Starting on Thu07/11/22 at 0311 indomethacin 50 mg oral capsule (1 source) Nonsteroidal Anti-inflammatory Drug Start: 06-12-2022 End: 06-22-2022 take 1 capsule by mouth in the morning indomethacin (Indocin) 50 MG capsule Take 1 capsule (50 mg) by mouth in the morning and 1 capsule (50 mg) in the evening. Take with meals. Do all this for 10 days. 20 capsule 0 06/12/2022 06/22/2022 Active melatonin 10 mg oral capsule (20 sources) Start: 11-29-2024 take 2 capsules by mouth at bedtime Start: 04-04-2024 End: 04-06-2024 take 3 mg by mouth once daily 3 mg, Oral, Nightly, Fir st dose on Thu04/04/24 at 2100 Start: 02-17-2024 End: 03-30-2024 take 1 capsule by mouth once daily Melatonin 3 MG capsule Take 3 mg by mouth Nightly. 30 capsule 02/17/2024 03/30/2024 Discontinued (Ineffective) Start: 09-16-2023 End: 01-26-2024 take 1 tablet by mouth once daily as needed melatonin 5 MG tablet Take 1 tablet (5 mg) by mouth Nightly as needed (insomnia). 30 tablet 1 09/16/2023 12/17/2023 Discontinued (Stop taking at discharge) methadone hydrochloride 10 mg oral tablet (1 source) Opioid Agonist Start: 11-29-2024 take 1 tablet by mouth once daily methocarbamol 500 mg oral tablet (20 sources) Muscle Relaxant Start: 07-02-2024 take 1 tablet by mouth twice daily methocarbamol (Robaxin) 500 MG tablet Take 1 tablet (500 mg) by mouth 2 times daily for 10 days. 20 tablet 07/02/2024 Active Start: 12-13-2023 End: 12-17-2023 take 1 tablet by mouth every six hours as needed 1,000 mg, Oral, Every 6 hours PRN, muscle spasms, Starting on 12/13/23 at 2320 metoprolol tartrate 50 mg oral tablet (20 sources) beta-Adrenergic Amanda Start: 11-29-2024 take 50 mg by mouth once daily Start: 12-14-2023 End: 03-30-2025 metoprolol succinate XL (Top rol-XL) 50 MG 24 hr tablet Indications: Per [facility] last filled 08/05/2023 for a 15 day supply. Take 1 tablet (50 mg) by mouth daily. Do not crush or chew. 30 tablet 1 03/30/2024 03/30/2025 Active Start: 11-20-2023 End: 11-28-2023 Start: 11-18-2023 End: 11-20-2023 Start: 10-16-2023 End: 10-18-2023 50 mg, Oral, Daily, First do se on Thu10/16/23 at 1530, Do not crush or chew., Indications: Last filled 09/30 for a 90 day supply. Start: 03-18-2023 End: 12-17-2023 take 2 tablets by mouth once daily metoprolol succinate XL (Toprol-XL) 25 MG 24 hr tablet Indications: Last filled 09/30 for a 90 day supply. Take 2 tablets (50 mg) by mouth daily. Do not crush or chew. 30 tablet 3 03/18/2023 12/17/2023 Discontinued (Stop taking at discharge) Start: 03-18-2023 End: 08-15-2023 50 mg, Oral, Daily, First do se on Thu08/11/23 at 0900, Do not crush or chew., Indications: Last filled 09/30 for a 90 day supply. Start: 11-04-2022 End: 11-09-2023 25 mg, Oral, Daily, First do se on Janay 06/25/23 at 0900, Do not crush or chew., Indications: Last filled 09/30 for a 90 day supply. End: 11-08-2022 take 1 tablet by mouth once daily METOPROLOL SUCCINATE ER PO Indications: Last filled 09/30 for a 90 day supply. Take 25 mg by mouth daily. 2 tabs in the morning and 1 tab at night 0 11/08/2022 Discontinued (Reorder) take 2 tablets by mo uth once daily metoprolol tartrate (Lopressor) 25 MG tablet Take 50 mg by mouth daily. 0 Active take 1 tablet by h[place] at bedtime METOPROLOL SUCCINATE ER PO Indications: Last filled 09/30 for a 90 day supply. Take 25 mg by mouth. 2 tablets in the morning and 1 tablet at bedtime. 0 Active take 50 mg by mouth once daily M ETOPROLOL TARTRATE PO Take 50 mg by mouth daily 0 Active naloxone hydrochloride 40 mg/ml nasal spray (20 sources) Opioid Antagonist Start: 11-15-2024 naloxone (Na rcan) 4 MG/0.1ML nasal spray Administer 1 spray (4 mg) into affected nostril(s) as needed for opioid reversal. May repeat every 2-3 minutes if needed, alternating nostrils, until medical assistance becomes available. 2 each 11/15/2024 Active Start: 04-16-2024 End: 04-20-2024 0.4 mg, IntraVENous, Every 5 min PRN, opioid reversal, respiratory depression, Starting on 04/16/24 at 2129, +++ For RR Start: 04-04-2024 End: 04-06-2024 0.4 mg, IntraVENous, Every 5 min PRN, opioid reversal, respiratory depression, Starting on 04/04/24 at 0807, +++ For RR Start: 01-20-2024 End: 01-26-2024 0.4 mg, IntraVENous, Every 5 min PRN, opioid reversal, respiratory depression, Starting on 01/20/24 at 1908, +++ For RR Start: 12-14-2023 End: 12-17-2023 0.4 mg, IntraVENous, Every 5 min PRN, opioid reversal, respiratory depression, Starting on Thu12/14/23 at 0011, +++ For RR Start: 11-18-2023 End: 11-28-2023 Start: 10-16-2023 End: 10-18-2023 0.4 mg, IntraVENous, Every 5 min PRN, opioid reversal, respiratory depression, Starting on Thu10/16/23 at 1527, +++ For RR Start: 08-19-2023 End: 08-19-2023 naloxone (Narcan) 4 mg/0.1 m L nasal spray Administer 1 spray (4 mg) into affected nostril(s) Once for 1 dose. May repeat every 2-3 minutes if needed, alternating nostrils, until medical assistance becomes available. 1 each 08/19/2023 08/19/2023 Start: 08-11-2023 End: 08-15-2023 0.4 mg, IntraVENous, Every 5 min PRN, opioid reversal, respiratory depression, Starting on Thu08/11/23 at 1224, +++ For RR Start: 06-26-2023 End: 06-28-2023 naloxone (Narcan) injection 0.4 mg Start: 11-12-2022 End: 11-12-2022 naloxone (Narcan) 4 mg/0.1 m L nasal spray Indications: Severe opioid use disorder (HCC) Administer 1 spray (4 mg) into affected nostril(s) Once for 1 dose. May repeat every 2-3 minutes if needed, alternating nostrils, until medical assistance becomes available. 1 each 0 11/12/2022 11/12/2022 oxyCODONE hydrochloride 5 mg oral tablet (20 sources) Opioid Agonist Start: 11-15-2024 End: 11-20-2024 take 1 tablet by mouth every six hours as needed for pain oxyCODONE (Roxicodone) 5 MG immediate release tablet Indications: Extraction of tooth needed Take 1 tablet (5 mg) by mouth every 6 hours as needed for severe pain (7-10) for up to 5 days. 15 tablet 11/15/2024 11/20/2024 Active Start: 06-04-2024 End: 11-15-2024 take 1 tablet by mouth every eight hours as needed for pain oxyCODONE (Roxicodone) 5 MG immediate release tablet Indications: Alcohol-induced acute pancreatitis without infection or necrosis Take 1 tablet (5 mg) by mouth every 8 hours as needed for severe pain (7-10). 10 tablet 06/26/2024 11/15/2024 Discontinued Start: 05-30-2024 End: 06-04-2024 take 1 tablet by mouth every six hours as needed for pain oxyCODONE (Roxicodone) 5 MG immediate release tablet Indications: Acute on chronic pancreatitis (CMS/HCC) (HCC) Take 1 tablet (5 mg) by mouth every 6 hours as needed for severe pain (7-10). 12 tablet 05/30/2024 06/04/2024 Discontinued Start: 05-07-2024 End: 05-10-2024 take 1 tablet by mouth every six hours as needed for pain oxyCODONE (Roxicodone) 5 MG immediate release tablet Indications: Alcohol-induced acute pancreatitis without infection or necrosis Take 1 tablet (5 mg) by mouth every 6 hours as needed for severe pain (7-10) for up to 3 days. 12 tablet 05/07/2024 05/10/2024 Active Start: 04-19-2024 End: 04-20-2024 take 1 tablet by mouth every four hours as needed for pain oxyCODONE (Roxicodone) immediate release tablet 2.5 mg Start: 04-04-2024 End: 04-20-2024 take 1 tablet by mouth every six hours as needed for pain oxyCODONE (Roxicodone) 5 MG immediate release tablet Indications: Pancreatitis, unspecified pancreatitis type Take 1 tablet (5 mg) by mouth every 6 hours as needed for moderate pain (4-6) for up to 5 days. 15 tablet 04/06/2024 04/20/2024 Discontinued (Stop taking at discharge) Start: 03-22-2024 End: 03-25-2024 take 1 tablet by mouth every six hours as needed for pain oxyCODONE (Roxicodone) 5 MG immediate release tablet Indications: Pain of upper abdomen , Alcohol-induced chronic pancreatitis (CMS/HCC) (HCC) Take 1 tablet (5 mg) by mouth every 6 hours as needed for severe pain (7-10) for up to 3 days. 12 tablet 03/22/2024 03/25/2024 Active Start: 01-23-2024 End: 01-26-2024 take 1 tablet by mouth every six hours as needed for pain oxyCODONE (Roxicodone) immediate release tablet 5 mg Start: 12-14-2023 End: 12-17-2023 take 1 tablet by mouth every six hours as needed for pain and pain 5 mg, Oral, Every 6 hours PRN, moderate pain (4-6), severe pain (7-10), Starting on 12/14/23 at 0006 Start: 11-22-2023 End: 12-01-2023 take 1 tablet by mouth every six hours as needed for pain oxyCODONE (Roxicodone) 5 MG immediate release tablet Indications: Acute pancreatitis without infection or necrosis Take 1 tablet (5 mg) by mouth every 6 hours as needed for severe pain (7-10) for up to 3 days. 10 tablet 11/28/2023 12/01/2023 Active Start: 10-16-2023 End: 10-19-2023 take 1 tablet by mouth every six hours as needed for pain oxyCODONE (Roxicodone) 5 MG immediate release tablet Indications: Alcohol-induced acute pancreatitis, unspecified complication status Take 1 tablet (5 mg) by mouth every 6 hours as needed for severe pain (7-10) for up to 3 days. 12 tablet 10/16/2023 10/19/2023 Active Start: 10-01-2023 End: 10-06-2023 take 1 tablet by mouth every six hours as needed for pain oxyCODONE (Roxicodone) 5 MG immediate release tablet Indications: Alcohol-induced acute pancreatitis, unspecified complication status Take 1 tablet (5 mg) by mouth every 6 hours as needed for severe pain (7-10) for up to 5 days. 10 tablet 10/01/2023 10/06/2023 Active Start: 10-01-2023 End: 10-01-2023 take 5 mg by mouth once 5 mg, Oral, Once, On Janay 09/10 04/04 at 0255, For 1 dose pantoprazole 20 mg delayed release oral tablet (20 sources) Proton Pump Inhibitor Start: 11-29-2024 take 20 mg by mouth twice daily Start: 05-07-2024 End: 04-28-2025 take 1 tablet by mouth once daily before breakfast pantoprazole (ProtoNix) 40 MG EC tablet Take 1 tablet (40 mg) by mouth every morning (before breakfast). Do not crush, chew, or split. 30 tablet 05/07/2024 Active Start: 02-06-2024 End: 02-08-2024 take 40 mg by mouth once daily before breakfast 40 mg, Oral, Daily before breakfast, First dose on 02/07/24 at 0600, Do not crush, chew, or split. Start: 12-15-2023 End: 12-16-2024 take 1 tablet by mouth twice daily before mealtime pantoprazole (ProtoNix) 40 MG EC tablet Take 1 tablet (40 mg) by mouth 2 times daily (before meals). Do not crush, chew, or split. 60 tablet 12/17/2023 11:04 AM EST 12/17/2023 Active Start: 12-14-2023 End: 12-14-2023 take 40 mg by mouth once daily before breakfast 40 mg, Oral, Daily before breakfast, First dose on 12/14/23 at 0600, Substituted for omeprazole (Prilosec). Do not crush, chew, or split. Start: 11-22-2023 End: 11-28-2023 Start: 10-17-2023 End: 10-18-2023 take 40 mg by mouth once daily before breakfast 40 mg, Oral, Daily before breakfast, First dose on Thu10/17/23 at 0600, Substituted for omeprazole (Prilosec). Do not crush, chew, or split. Start: 08-11-2023 End: 08-15-2023 take 40 mg by mouth once daily before breakfast 40 mg, Oral, Daily before breakfast, First dose on Tu08/11/23 at 1100, Substituted for omeprazole (Prilosec). Do not crush, chew, or split. Start: 06-25-2023 End: 06-28-2023 take 40 mg by mouth once daily before breakfast 40 mg, Oral, Daily before breakfast, First dose on Janay 06/25/23 at 0600, Substituted for omeprazole (Prilosec). Do not crush, chew, or split. Start: 11-05-2022 End: 11-08-2022 take 40 mg by mouth once daily before breakfast 40 mg, Oral, Daily before breakfast, First dose on Thu11/05/22 at 0700, Substituted for omeprazole (Prilosec). Do not crush, chew, or split. Start: 03-16-2022 End: 03-19-2022 take 20 mg by mouth once daily before breakfast 20 mg, Oral, Daily before breakfast, First dose on Thu03/16/22 at 1030 Do not crush, chew, or split. PARoxetine hydrochloride 20 mg oral tablet (1 source) Serotonin Reuptake Inhibitor Start: 03-29-2018 take 1 tablet by mouth once daily PARoxetine (PAXIL) 20 MG tablet Take 1 tablet by mouth nightly 30 tablet 0 03/29/2018 Active promethazine hydrochloride 25 mg oral tablet (8 sources) Phenothiazine Start: 05-22-2024 End: 05-29-2024 take 1 tablet by mouth every six hours as needed for nausea and vomiting promethazine (Phenergan) 25 MG tablet Take 1 tablet (25 mg) by mouth every 6 hours as needed for nausea or vomiting for up to 7 days. 20 tablet 05/22/2024 05/29/2024 Active Start: 08-19-2023 End: 08-27-2023 take 1 tablet by mouth every six hours as needed for nausea and vomiting promethazine (Phenergan) 25 MG tablet Take 1 tablet (25 mg) by mouth every 6 hours as needed for nausea or vomiting for up to 8 days. 30 tablet 08/19/2023 08/27/2023 Start: 08-11-2023 End: 08-15-2023 take 1 tablet by mouth every six hours as needed for nausea and vomiting promethazine (Phenergan) tablet 12.5 mg Start: 08-10-2023 End: 08-11-2023 inject 12.5 mg by intramuscular injection once 12.5 mg, IntraMUSCular, Once, On Thu08/10/23 at 2350, For 1 dose, Only to be given as IM injection. risperiDONE 1 mg oral tablet (20 sources) Atypical Antipsychotic Start: 03-30-2024 End: 04-29-2024 take 2 tablets by mouth twice daily risperiDONE (RisperDAL) 0.5 MG tablet Indications: Tourette's Syndrome Take 2 tablets (1 mg) by mouth 2 times daily. 60 tablet 1 03/30/2024 04/29/2024 Active Start: 12-14-2023 End: 04-08-2024 take 1 tablet by mouth once daily risperiDONE (RisperDAL) 0.5 MG tablet Indications: Tourette's Syndrome Take 1 tablet (0.5 mg) by mouth Nightly. 30 tablet 1 02/08/2024 03/30/2024 Discontinued Start: 11-04-2023 End: 04-26-2025 take 1 tablet by mouth twice daily risperiDONE (RisperDAL) 1 MG tablet Take 1 tablet (1 mg) by mouth 2 times daily. 60 tablet 3 04/26/2024 04/26/2025 Active Start: 09-23-2023 End: 11-04-2023 take 1 tablet by mouth twice daily risperiDONE (RisperDAL) 0.5 MG tablet Indications: Tourette's Syndrome Take 1 tablet (0.5 mg) by mouth 2 times daily. 60 tablet 09/23/2023 11/04/2023 Discontinued (Dose adjustment) Start: 09-16-2023 End: 10-16-2023 take 1 tablet by mouth twice daily risperiDONE (RisperDAL) 0.25 MG tablet Indications: Tourette's Syndrome Take 1 tablet (0.25 mg) by mouth 2 times daily. 60 tablet 09/16/2023 09/23/2023 Discontinued (Reorder) Start: 06-25-2023 End: 06-28-2023 risperiDONE (RisperDAL) tabl et 0.5 mg Start: 03-29-2018 take 1 tablet by [place] twice daily risperiDONE (RISPERDAL) 0.5 MG tablet Take 1 tablet by mouth 2 times daily 60 tablet 0 03/29/2018 Active thiamine 100 mg oral tablet (20 sources) Start: 04-04-2024 End: 04-20-2024 take 1 tablet by mouth once daily thiamine (Vitamin B1) 100 MG tablet Take 1 tablet (100 mg) by mouth daily. 30 tablet 1 04/07/2024 Active Start: 02-05-2024 End: 02-08-2024 take 100 mg by mouth once daily 100 mg, Oral, Daily, F irst dose on Thu02/05/24 at 0900 Start: 01-20-2024 End: 01-26-2024 take 100 mg by mouth once daily 100 mg, Oral, Daily, F irst dose on Thu01/20/24 at 1905 Start: 12-13-2023 End: 12-17-2023 take 100 mg by mouth once daily 100 mg, Oral, Daily, F irst dose on 12/13/23 at 1415 Start: 11-18-2023 End: 11-28-2023 Start: 10-16-2023 End: 10-18-2023 take 100 mg by mouth once daily 100 mg, Oral, Daily, F irst dose on Thu10/16/23 at 1530 Start: 08-11-2023 End: 08-15-2023 take 100 mg by mouth three times daily 100 mg, Oral, 3 times daily, First dose on Thu08/11/23 at 0900 Start: 06-25-2023 End: 06-28-2023 take 100 mg by mouth once daily 100 mg, Oral, Daily, F irst dose on Thu06/25/23 at 0900 Start: 11-04-2022 End: 11-08-2022 thiamine (Vitamin B1) tablet 100 mg Start: 03-16-2022 End: 03-19-2022 Thiamine Mononitrate (Vitami n B1) tablet 100 mg venlafaxine 75 mg oral tablet (20 sources) Serotonin and Norepinephrine Reuptake Inhibitor Start: 11-29-2024 take 1 tablet by mouth once daily Start: 02-17-2024 End: 04-20-2024 take 1 capsule by mouth once daily at breakfast venlafaxine XR (Effexor XR) 75 MG 24 hr capsule Take 1 capsule (75 mg) by mouth daily (with breakfast). Do not crush or chew. 30 capsule 1 02/17/2024 Active Start: 02-09-2024 End: 02-08-2024 take 1 capsule by mouth once daily at breakfast venlafaxine XR (Effexor XR) 75 MG 24 hr capsule Take 1 capsule (75 mg) by mouth daily (with breakfast). Do not crush or chew. 30 capsule 02/09/2024 02/08/2024 Discontinued (Stop taking at discharge) Start: 02-09-2024 End: 02-08-2024 take 1 capsule by mouth once daily at breakfast venlafaxine XR (Effexor XR) 75 MG 24 hr capsule Take 1 capsule (75 mg) by mouth daily (with breakfast). Do not crush or chew. 30 capsule 11 02/09/2024 02/08/2024 Discontinued (Stop taking at discharge) Start: 12-18-2023 End: 02-17-2024 venlafaxine XR (Effexor XR) 75 MG 24 hr capsule Take 1 capsule (75 mg) by mouth daily (with breakfast). Do not crush or chew. Do not start before December 18, 2023. 30 capsule 1 12/18/2023 02/17/2024 Discontinued (Reorder) Start: 11-27-2023 End: 11-28-2023 Start: 09-16-2023 End: 09-15-2024 take 1 capsule by mouth once daily venlafaxine XR (Effexor XR) 37.5 MG 24 hr capsule Take 1 capsule (37.5 mg) by mouth daily. Take with 1 capsule (75mg) by mouth daily for total dose of 112.5mg. Do not crush or chew. 30 capsule 1 09/16/2023 11/04/2023 Discontinued (Side effects) Start: 09-09-2023 End: 09-08-2024 take 1 capsule by mouth once daily venlafaxine XR (Effexor XR) 150 MG 24 hr capsule Take 1 capsule (150 mg) by mouth daily. Do not crush or chew. 30 capsule 1 09/09/2023 09/16/2023 Discontinued Start: 08-12-2023 End: 09-23-2023 take 1 capsule by mouth once daily at breakfast venlafaxine XR (Effexor XR) 75 MG 24 hr capsule Take 1 capsule (75 mg) by mouth daily (with breakfast). Do not crush or chew. 90 capsule 08/16/2023 09/23/2023 Discontinued (Side effects) Start: 06-27-2023 End: 08-15-2023 take 1 capsule by mouth once daily at breakfast 37.5 mg, Oral, Daily with breakfast, First dose on Thu08/11/23 at 0800, Capsule may be swallowed whole, or may be opened and its contents sprinkled on applesauce if consumed immediately without chewing. Do not crush or chew. Completed/Discontinued Medications Medication Drug Class(es) Dates Sig (Normalized) Sig (Original) acamprosate calcium 333 mg delayed release oral tablet (20 sources) Start: 11-07-2022 End: 03-18-2023 take 2 tablets by mouth three times daily acamprosate (Campral) 333 MG EC tablet Indications: Severe alcohol use disorder (HCC) Take 2 tablets (666 mg) by mouth 3 times daily. Do not crush, chew, or split. 180 tablet 1 11/12/2022 03/18/2023 Discontinued Start: 11-07-2022 End: 11-08-2022 acamprosate (Campral) EC tab let 666 mg [id number] 200 actuat albuter ol 0.09 mg/actuat metered dose inhaler (20 sources) beta2-Adrenergic Agonist Start: 04-16-2024 End: 04-20-2024 Start: 06-24-2023 End: 06-28-2023 take 2 puff(s) by inhalation every six hours as needed for wheezing 2 puff, Inhalation, Every 6 hours PRN, wheezing, Starting on Thu06/24/23 at 2249 Start: 11-12-2022 End: 11-12-2023 take 2 puff(s) by inhalation every six hours as needed for wheezing albuterol 108 (90 Base) MCG/ACT inhaler Indications: Mild intermittent asthma without complication Inhale 2 puffs every 6 hours as needed for wheezing. 18 g 11 11/12/2022 06/28/2023 Discontinued (Stop taking at discharge) aluminum hydroxide 40 mg/ml / magnesium hydroxide 40 mg/ml / simethicone 4 mg/ml oral suspension (8 sources) Start: 10-16-2023 End: 10-18-2023 take 20 mL by mouth three times daily as needed for gastroesophageal reflux disease 20 mL, Oral, 3 times daily PRN, indigestion, heartburn, Starting on Thu10/16/23 at 2036 Start: 08-11-2023 End: 08-15-2023 take 10 mL by mouth three times daily as needed 10 mL, Oral, 3 times daily PRN, indigestion, Starting on Thu08/11/23 at 0955 Start: 11-04-2022 End: 11-08-2022 aluminum & magnesium hydroxide-simethicone (Mylanta) 200-200-20 MG/5ML oral suspension 10 mL Start: 03-15-2022 End: 03-19-2022 aluminum & magnesium hydroxide-simethicone (Mylanta) 200-200-20 MG/5ML oral suspension 10 mL amLODIPine 10 mg oral tablet (4 sources) Dihydropyridine Calcium Channel Amanda Start: 11-22-2023 End: 11-28-2023 Start: 11-20-2023 End: 11-22-2023 aspirin 81 mg chewable tablet (1 source) Platelet Aggregation Inhibitor, Nonsteroidal Anti-inflammatory Drug Start: 05-02-2022 End: 05-02-2022 aspirin chewable tablet 324 mg azithromycin 250 mg oral tablet (1 source) Macrolide Antimicrobial Start: 07-28-2019 End: 07-28-2019 azithromycin (ZITHROMAX) tablet 1,000 mg baclofen 10 mg oral tablet (4 sources) gamma-Aminobutyric Acid-ergic Agonist Start: 11-04-2022 End: 11-08-2022 take 1 tablet by mouth every eight hours baclofen (Lioresal) tablet 10 mg Start: 07-11-2022 End: 07-11-2022 baclofen (Lioresal) tablet 1 0 mg bisacodyl 10 mg rectal suppository (2 sources) Stimulant Laxative Start: 11-19-2023 End: 11-28-2023 take 10 mg rectal route every twenty-four hours as needed for constipation buprenorphine 8 mg / naloxone 2 mg sublingual tablet (20 sources) Partial Opioid Agonist, Opioid Antagonist Start: 08-19-2023 End: 10-23-2023 buprenorphine-nal oxone (Suboxone) 8-2 MG SL tablet Indications: Severe opioid use disorder (HCC) Place 1 tablet under the tongue daily. 7 tablet 08/19/2023 09/23/2023 Discontinued (Reorder) Start: 06-28-2023 End: 10-18-2023 buprenorphine-naloxone (Subo xone) 8-2 MG per sublingual film Indications: Opioid withdrawal (HCC) Place 1 Film under the tongue daily for 4 days. 4 Film 08/15/2023 08/26/2023 Discontinued (Reorder) Start: 06-25-2023 End: 06-28-2023 buprenorphine-naloxone (Subo xone) 2-0.5 MG per sublingual film 1 Film Start: 03-18-2023 End: 06-28-2023 buprenorphine-naloxone (Subo xone) 8-2 MG SL tablet Indications: Severe opioid use disorder (HCC) Place 1 tablet under the tongue daily for 28 days. 28 tablet 0 04/29/2023 06/28/2023 Discontinued (Stop taking at discharge) Start: 03-03-2023 End: 03-18-2023 buprenorphine-naloxone (Subo xone) 8-2 MG per sublingual film Indications: Opioid use disorder, severe, on maintenance therapy (HCC) Place 1 Film under the tongue every morning AND 0.5 Film every evening. Do all this for 8 days. 12 Film 0 03/03/2023 03/18/2023 Discontinued Start: 11-09-2022 End: 12-12-2022 buprenorphine-naloxone (Subo xone) 8-2 MG per sublingual film Indications: Severe opioid use disorder (HCC) Place 1.5 Film under the tongue daily. 45 Film 0 11/12/2022 12/12/2022 Active Start: 11-08-2022 End: 11-08-2022 buprenorphine-naloxone (Subo xone) 8-2 MG per sublingual film 1 Film Start: 11-07-2022 End: 11-07-2022 buprenorphine-naloxone (Subo xone) 2-0.5 MG per sublingual film 1 Film Start: 11-07-2022 End: 11-07-2022 buprenorphine-naloxone (Subo xone) 2-0.5 MG per sublingual film 1 Film Start: 11-07-2022 End: 11-07-2022 buprenorphine-naloxone (Subo xone) 2-0.5 MG per sublingual film 1 Film cefTRIAXone (ROCEPHIN) 250 mg in lidocaine 1 % 1 mL IM Injection (1 source) Start: 07-28-2019 End: 07-28-2019 cefTRIAXone (ROCEPHIN) 250 mg in lidocaine 1 % 1 mL IM Injection colchicine 0.6 mg oral tablet (1 source) Start: 06-12-2022 End: 06-12-2022 colchicine tablet 1.2 mg 24 hr desvenlafaxine succinate 50 mg extended release oral tablet (4 sources) Serotonin and Norepinephrine Reuptake Inhibitor Start: 12-15-2023 End: 12-17-2023 take 1 tablet by mouth once daily desvenlafaxine (Pristiq) 50 MG 24 hr tablet Indications: Other depression Take 1 tablet (50 mg) by mouth daily. Do not crush, chew, or split. 30 tablet 1 12/17/2023 12/17/2023 Discontinued (Stop taking at discharge) dextromethorphan hydrobromide 2 mg/ml / guaiFENesin 20 mg/ml oral suspension (2 sources) Uncompetitive P-llblrr-U-aspartat e Receptor Antagonist, Sigma-1 Agonist Start: 04-16-2024 End: 04-20-2024 take 5 mL by mouth every four hours as needed for cough 1 ml diphenhydrAMINE hydrochloride 50 mg/ml cartridge (2 sources) Histamine-1 Receptor Antagonist Start: 11-18-2023 End: 11-18-2023 doxepin hydrochloride 10 mg oral capsule (4 sources) Tricyclic Antidepressant Start: 12-13-2023 End: 12-16-2023 take 10 mg by mouth once daily 10 mg, Oral, Nightly, First dose on Thu12/13/23 at 2325, HOLD if sleeping or sedated. Start: 11-18-2023 End: 11-27-2023 DULoxetine 30 mg delayed release oral capsule (5 sources) Serotonin and Norepinephrine Reuptake Inhibitor Start: 11-04-2023 End: 01-03-2024 0.4 ml enoxaparin sodium 100 mg/ml prefilled syringe (10 sources) Low Molecular Weight Heparin Start: 01-20-2024 End: 01-26-2024 inject 40 mg by subcutaneous injection every twenty-four hours 40 mg, SubCUTAneous, Every 24 hours scheduled (Daily), First dose on Thu01/20/24 at 1905, Indication of Use: Prophylaxis-DVT/PE, Indications: Prophylaxis of Venous Thromboembolism Start: 11-25-2023 End: 11-28-2023 Start: 10-16-2023 End: 10-18-2023 inject 40 mg by subcutaneous injection every twenty-four hours 40 mg, SubCUTAneous, Every 24 hours scheduled (Daily), First dose on Thu10/16/23 at 1525, Indication of Use: Prophylaxis-DVT/PE, Indications: Prophylaxis of Venous Thromboembolism Start: 06-25-2023 End: 06-28-2023 inject 40 mg by subcutaneous injection every twenty-four hours 40 mg, SubCUTAneous, Every 24 hours scheduled (Daily), First dose on Janay 06/25/23 at 0900, Indication of Use: Prophylaxis-DVT/PE, Indications: Prophylaxis of Venous Thromboembolism famotidine 20 mg oral tablet (2 sources) Histamine-2 Receptor Antagonist Start: 06-26-2024 End: 06-26-2024 take 20 mg by mouth once 20 mg, Oral, Once, On Thu06/26/24 at 2015, For 1 dose famotidine (Pepcid) 20 mg in sodium chloride (PF) 0.9 % 10 mL injection (6 sources) Start: 06-12-2024 End: 06-12-2024 20 mg, IntraVENous, Administer over 2 Minutes, Once, On Thu06/12/24 at 2210, For 1 dose, IV Push over minimum of 2 minutes - Dilute with 10 mL NS Start: 04-04-2024 End: 04-04-2024 20 mg, IntraVENous, Administ er over 2 Minutes, Once, On Thu04/04/24 at 0430, For 1 dose, IV Push over minimum of 2 minutes - Dilute with 10 mL NS Start: 01-08-2024 End: 01-08-2024 20 mg, IntraVENous, Administ er over 2 Minutes, Once, On Thu01/08/24 at 0550, For 1 dose, IV Push over minimum of 2 minutes - Dilute with 10 mL NS 2 ml furosemide 10 mg/ml injection (2 sources) Loop Diuretic Start: 11-21-2023 End: 11-21-2023 gabapentin 300 mg oral capsule (14 sources) Anti-epileptic Agent Start: 04-16-2024 End: 04-20-2024 take 1 capsule by mouth every eight hours as needed for pain and pain Start: 04-06-2024 End: 04-06-2024 take 300 mg by mouth three times daily 300 mg, Oral, 3 times daily, First dose on Thu04/06/24 at 0915, HOLD if sleeping or sedated. Start: 09-02-2023 End: 09-01-2024 take 1 capsule by mouth twice daily gabapentin (Neurontin) 100 MG capsule Take 1 capsule (100 mg) by mouth 2 times daily. 60 capsule 09/02/2023 09/16/2023 Discontinued (Therapy completed) Start: 08-15-2023 End: 09-02-2023 take 1 capsule by mouth every eight hours gabapentin (Neurontin) 300 MG capsule Take 1 capsule (300 mg) by mouth in the morning and 1 capsule (300 mg) at noon and 1 capsule (300 mg) before bedtime. 90 capsule 08/15/2023 09/02/2023 Discontinued (Side effects) Start: 08-11-2023 End: 09-02-2023 take 1 capsule by mouth every eight hours gabapentin (Neurontin) 300 MG capsule Take 1 capsule (300 mg) by mouth in the morning and 1 capsule (300 mg) at noon and 1 capsule (300 mg) before bedtime. 90 capsule 08/15/2023 09/02/2023 Discontinued (Side effects) gadopiclenol (Vueway) injection 10 mL (2 sources) Start: 06-20-2024 End: 06-20-2024 take 10 mL intravenously once as needed 10 mL, IntraVENous, IMG once PRN, contrast, Starting on 06/20/24 at 1348, For 1 dose 0.5 ml heparin sodium, porcine [id number] unt/ml prefilled syringe (2 sources) Unfractionated Heparin, Anti-coagulant Start: 04-04-2024 End: 04-06-2024 inject 1 dose by subcutaneous injection twice daily 5,000 Units, SubCUTAneous, Every 12 hours scheduled (2 times per day), First dose on 04/04/24 at 0900 1 ml hydrALAZINE hydrochloride 20 mg/ml injection (4 sources) Arteriolar Vasodilator Start: 01-21-2024 End: 01-26-2024 take 10 mg intravenously every four hours as needed for hypertension 10 mg, IntraVENous, Every 4 hours PRN, high blood pressure, Starting on Janay 01/21/24 at 1338, For SBP>160 Start: 11-18-2023 End: 11-28-2023 take 5 mg intravenously every four hours as needed for hypertension 1 ml HYDROmorphone hydrochloride 1 mg/ml cartridge (20 sources) Opioid Agonist Start: 06-18-2024 End: 06-18-2024 1 mg, IntraVENous, Once, On 06/18/24 at 1555, For 1 dose Start: 04-17-2024 End: 04-20-2024 take 0.5 mg intravenously every four hours as needed for pain and pain 0.5 mg, IntraVENous, Every 4 hours PRN, moderate pain (4-6), severe pain (7-10), Starting on 04/17/24 at 0050, If oral and IV narcotics ordered, use oral first and only use IV if oral is ineffective or cannot take oral. Do Not give oral and IV within 1 hour of each other unless specifically ordered. Start: 11-18-2023 End: 11-28-2023 Start: 10-17-2023 End: 10-18-2023 take 0.5 mg intravenously every six hours as needed for pain 0.5 mg, IntraVENous, Every 6 hours PRN, severe pain (7-10), Starting on Thu10/17/23 at 1520, If oral and IV narcotics ordered, use oral first and only use IV if oral is ineffective or cannot take oral. Do Not give oral and IV within 1 hour of each other unless specifically ordered. Start: 10-16-2023 End: 10-17-2023 take 0.5 mg intravenously every four hours as needed for pain 0.5 mg, IntraVENous, Every 4 hours PRN, severe pain (7-10), Starting on Thu10/16/23 at 1943, If oral and IV narcotics ordered, use oral first and only use IV if oral is ineffective or cannot take oral. Do Not give oral and IV within 1 hour of each other unless specifically ordered. Start: 10-16-2023 End: 10-16-2023 take 0.5 mg by mouth once 0.5 mg, IntraVENous, Once, O n Thu10/16/23 at 1225, For 1 dose, If oral and IV narcotics ordered, use oral first and only use IV if oral is ineffective or cannot take oral. Do Not give oral and IV within 1 hour of each other unless specifically ordered. iopamidol (Isovue-370) 76 % injection 75 mL (12 sources) Start: 06-26-2024 End: 06-26-2024 take 75 mL intravenously once as needed 75 mL, IntraVENous, IMG once PRN, contrast, Starting on 06/26/24 at 2142, For 1 dose Start: 06-12-2024 End: 06-12-2024 take 75 mL intravenously once as needed 75 mL, IntraVENous, IMG once PRN, contrast, Starting on 06/12/24 at 2337, For 1 dose Start: 05-22-2024 End: 05-22-2024 take 75 mL intravenously once as needed 75 mL, IntraVENous, IMG once PRN, contrast, Starting on 05/22/24 at 1613, For 1 dose Start: 04-04-2024 End: 04-04-2024 take 75 mL intravenously once as needed 75 mL, IntraVENous, IMG once PRN, contrast, Starting on Thu04/04/24 at 0534, For 1 dose Start: 01-20-2024 End: 01-20-2024 take 75 mL intravenously once as needed 75 mL, IntraVENous, IMG once PRN, contrast, Starting on Thu01/20/24 at 1438, For 1 dose Start: 12-16-2022 End: 12-16-2022 iopamidol (Isovue-370) 76 % injection 75 mL 1 ml ketorolac tromethamine 30 mg/ml cartridge (17 sources) Nonsteroidal Anti-inflammatory Drug, Cyclooxygenase Inhibitor Start: 05-30-2024 End: 05-30-2024 15 mg, IntraVENous, Once, On 05/30/24 at 2215, For 1 dose Start: 05-22-2024 End: 05-22-2024 15 mg, IntraVENous, Once, On 05/22/24 at 1505, For 1 dose Start: 05-07-2024 End: 05-07-2024 15 mg, IntraVENous, Once, On 05/07/24 at 1640, For 1 dose Start: 01-25-2024 End: 01-26-2024 take 15 mg intravenously every six hours as needed 15 mg, IntraVENous, Every 6 hours PRN, Headache, Starting on 01/25/24 at 1450, For 5 days Start: 11-18-2023 End: 11-23-2023 take 15 mg intravenously every six hours as needed for pain and pain and pain Start: 11-18-2023 End: 11-18-2023 Start: 10-16-2023 End: 10-16-2023 15 mg, IntraVENous, Once, On Thu10/16/23 at 0155, For 1 dose Start: 08-10-2022 End: 08-10-2022 ketorolac (Toradol) injectio n 30 mg Start: 05-02-2022 End: 05-02-2022 ketorolac (Toradol) injectio n 15 mg labetalol hydrochloride 5 mg/ml injectable solution (2 sources) beta-Adrenergic Amanda Start: 12-14-2023 End: 12-17-2023 take 10 mg intravenously every six hours as needed for hypertension 10 mg, IntraVENous, Every 6 hours PRN, high blood pressure, Administer for SBP >170 and/or DBP >100, Starting on 12/14/23 at 0020 lansoprazole 30 mg disintegrating oral tablet (2 sources) Proton Pump Inhibitor Start: 07-11-2022 End: 07-11-2022 take 30 mg by mouth once daily before breakfast 30 mg, Oral, Daily before breakfast, First dose on Thu07/11/22 at 0700 Do not crush or break. levalbuterol 0.21 mg/ml inhalation solution (2 sources) beta2-Adrenergic Agonist Start: 11-20-2023 End: 11-28-2023 loperamide hydrochloride 2 mg oral capsule (8 sources) Opioid Agonist Start: 08-11-2023 End: 08-15-2023 Start: 11-04-2022 End: 11-08-2022 loperamide (Imodium) capsule 2 mg Start: 07-11-2022 End: 07-11-2022 take 2 mg by mouth every three hours as needed for diarrhea 2 mg, Oral, Every 3 hours PRN, diarrhea, Starting on Thu07/11/22 at 0311 Start: 03-15-2022 End: 03-19-2022 loperamide (Imodium) capsule 2 mg 1 ml LORazepam 2 mg/ml injection (20 sources) Benzodiazepine Start: 06-12-2024 End: 06-12-2024 1 mg, IntraVENous, Once, On 06/12/24 at 2235, For 1 dose, For IV doses dilute dose with 1ml NS. Start: 04-16-2024 End: 04-20-2024 take 2 mg intravenously every four hours as needed 2 mg, IntraVENous, Every 4 hours PRN, seizures, Starting on 04/16/24 at 2103, For IV doses dilute dose with 1ml NS. Start: 04-16-2024 End: 04-20-2024 LORazepam (Ativan) tablet 1 mg Start: 04-16-2024 End: 04-16-2024 2 mg, IntraVENous, Once, On 04/16/24 at 1750, For 1 dose, For IV doses dilute dose with 1ml NS. Start: 04-04-2024 End: 04-06-2024 LORazepam (Ativan) tablet 1 mg Start: 04-04-2024 End: 04-04-2024 1 mg, IntraVENous, Once, On 04/04/24 at 0605, For 1 dose, For IV doses dilute dose with 1ml NS. Start: 02-04-2024 End: 02-04-2024 2 mg, IntraVENous, Once, On Janay 02/04/24 at 1650, For 1 dose, For IV doses dilute dose with 1ml NS. Start: 01-20-2024 End: 01-26-2024 LORazepam (Ativan) tablet 1 mg Start: 12-14-2023 End: 12-17-2023 take 1 tablet by mouth every four hours as needed Start: 12-13-2023 End: 12-13-2023 2 mg, IntraVENous, Once, On 12/13/23 at 1415, For 1 dose, For IV doses dilute dose with 1ml NS. Start: 12-13-2023 End: 12-17-2023 LORazepam (Ativan) tablet 1 mg Start: 11-26-2023 End: 11-26-2023 Start: 11-18-2023 End: 11-18-2023 Start: 10-16-2023 End: 10-18-2023 LORazepam (Ativan) tablet 1 mg Start: 10-01-2023 End: 10-01-2023 1 mg, IntraVENous, Once, On Janay 10/01/23 at 0145, For 1 dose, For IV doses dilute dose with 1ml NS. Start: 08-11-2023 End: 08-15-2023 1 mg, IntraMUSCular, Every 2 hour PRN, seizures, Only give if having a seizure. Please notify material handler floorperson attending if utilized., Starting on Thu08/11/23 at 0955, For IV doses dilute dose with 1ml NS. Start: 08-10-2023 End: 08-10-2023 2 mg, IntraMUSCular, Once, O n 08/10/23 at 2020, For 1 dose, For IV doses dilute dose with 1ml NS. Start: 06-25-2023 End: 06-28-2023 LORazepam (Ativan) tablet 3 mg Start: 06-24-2023 End: 06-28-2023 LORazepam (Ativan) tablet 1 mg Start: 06-24-2023 End: 06-24-2023 LORazepam (Ativan) 2 MG/ML injection - Pyxis ADS Override Pull Start: 06-24-2023 End: 06-24-2023 LORazepam (Ativan) injection 2 mg Start: 07-11-2022 End: 07-11-2022 LORazepam (Ativan) injection 2 mg Start: 05-25-2022 End: 05-25-2022 LORazepam (Ativan) tablet 2 mg Start: 05-02-2022 End: 05-02-2022 LORazepam (Ativan) tablet 1 mg Start: 03-16-2022 End: 03-16-2022 LORazepam (Ativan) tablet 1 mg Start: 03-16-2022 End: 03-16-2022 LORazepam (Ativan) tablet 1 mg Start: 03-15-2022 End: 03-15-2022 LORazepam (Ativan) injection 2 mg magnesium hydroxide 80 mg/ml oral suspension (2 sources) Start: 08-11-2023 End: 08-15-2023 take 30 mL by mouth twice daily as needed for constipation 30 mL, Oral, 2 times daily PRN, constipation, Starting on Thu08/11/23 at 0955 2 ml metoclopramide 5 mg/ml prefilled syringe (2 sources) Dopamine-2 Receptor Antagonist Start: 11-18-2023 End: 11-18-2023 1 ml morphine sulfate 4 mg/ml cartridge (20 sources) Opioid Agonist Start: 06-26-2024 End: 06-26-2024 take 1 dose by mouth every hour 4 mg, IntraVENous, Once, On Thu06/26/24 at 2015, For 1 dose, If oral and injectable narcotics ordered, use oral first and only use injectable if oral is ineffective or cannot take oral. Do Not give oral and injectable within 1 hour of each other unless specifically ordered. Start: 06-19-2024 End: 06-19-2024 take 1 dose by mouth every hour 4 mg, IntraVENous, Onc e, On 06/19/24 at 2135, For 1 dose, If oral and injectable narcotics ordered, use oral first and only use injectable if oral is ineffective or cannot take oral. Do Not give oral and injectable within 1 hour of each other unless specifically ordered. Start: 06-04-2024 End: 06-04-2024 take 1 dose by mouth every hour 4 mg, IntraVENous, Onc e, On 06/04/24 at 1555, For 1 dose, If oral and injectable narcotics ordered, use oral first and only use injectable if oral is ineffective or cannot take oral. Do Not give oral and injectable within 1 hour of each other unless specifically ordered. Start: 05-30-2024 End: 05-30-2024 take 1 dose by mouth every hour 4 mg, IntraVENous, Onc e, On 05/30/24 at 2350, For 1 dose, If oral and injectable narcotics ordered, use oral first and only use injectable if oral is ineffective or cannot take oral. Do Not give oral and injectable within 1 hour of each other unless specifically ordered. Start: 04-16-2024 End: 04-17-2024 take 2 mg intravenously every six hours as needed for pain and pain 2 mg, IntraVENous, Every 6 hours PRN, moderate pain (4-6), severe pain (7-10), Starting on 04/16/24 at 2128, If oral and IV narcotics ordered, use oral first and only use IV if oral is ineffective or cannot take oral. Do Not give oral and IV within 1 hour of each other unless specifically ordered. Start: 04-04-2024 End: 04-06-2024 take 2 mg intravenously every four hours as needed for pain 2 mg, IntraVENous, Every 4 hours PRN, severe pain (7-10), Starting on 04/04/24 at 0907, If oral and IV narcotics ordered, use oral first and only use IV if oral is ineffective or cannot take oral. Do Not give oral and IV within 1 hour of each other unless specifically ordered. Start: 04-04-2024 End: 04-04-2024 take 1 dose by mouth every hour 2 mg, IntraVENous, Onc e, On 04/04/24 at 0605, For 1 dose, If oral and injectable narcotics ordered, use oral first and only use injectable if oral is ineffective or cannot take oral. Do Not give oral and injectable within 1 hour of each other unless specifically ordered. Start: 04-04-2024 End: 04-04-2024 take 1 dose by mouth every hour 4 mg, IntraVENous, Onc e, On Thu04/04/24 at 0430, For 1 dose, If oral and IV narcotics ordered, use oral first and only use IV if oral is ineffective or cannot take oral. Do Not give oral and IV within 1 hour of each other unless specifically ordered. Start: 03-22-2024 End: 03-22-2024 take 1 dose by mouth every hour 4 mg, IntraVENous, Onc e, On Tu03/22/24 at 1520, For 1 dose, If oral and injectable narcotics ordered, use oral first and only use injectable if oral is ineffective or cannot take oral. Do Not give oral and injectable within 1 hour of each other unless specifically ordered. Start: 01-21-2024 End: 01-26-2024 take 2 mg by mouth every three hours as needed for pain 2 mg, IntraVENous, Every 3 hours PRN, 2nd line breakthrough pain, Starting on 01/23/24 at 1133, If oral and IV narcotics ordered, use oral first and only use IV if oral is ineffective or cannot take oral. Do Not give oral and IV within 1 hour of each other unless specifically ordered. Start: 01-20-2024 End: 01-21-2024 take 2 mg intravenously every four hours as needed for pain 2 mg, IntraVENous, Every 4 hours PRN, severe pain (7-10), Starting on Thu01/20/24 at 1900, If oral and IV narcotics ordered, use oral first and only use IV if oral is ineffective or cannot take oral. Do Not give oral and IV within 1 hour of each other unless specifically ordered. Start: 01-20-2024 End: 01-20-2024 4 mg, IntraVENous, Once, On Thu01/20/24 at 1450, For 1 dose Start: 01-08-2024 End: 01-08-2024 take 1 dose by mouth every hour 4 mg, IntraVENous, Onc e, On Thu01/08/24 at 0550, For 1 dose, If oral and IV narcotics ordered, use oral first and only use IV if oral is ineffective or cannot take oral. Do Not give oral and IV within 1 hour of each other unless specifically ordered. Start: 11-17-2023 End: 11-18-2023 Start: 10-16-2023 End: 10-16-2023 take 1 dose by mouth every hour 4 mg, IntraVENous, Onc e, On Thu10/16/23 at 0315, For 1 dose, If oral and IV narcotics ordered, use oral first and only use IV if oral is ineffective or cannot take oral. Do Not give oral and IV within 1 hour of each other unless specifically ordered. multiple vitamin tablet (2 sources) Start: 03-16-2022 End: 03-19-2022 multiple vitamin tablet nicotine 2 mg chewing gum (20 sources) Cholinergic Nicotinic Agonist Start: 08-12-2023 End: 08-15-2023 take 2 mg by mouth every two hours as needed 2 mg, Mouth/Throat, Every 2 hour PRN, smoking cessation, Starting on Thu08/12/23 at 1057 Start: 06-26-2023 End: 06-28-2023 nicotine (Nicoderm, Step 1) 21 MG/24HR patch 1 patch Start: 11-15-2022 End: 11-10-2023 apply 1 dose transdermal route every twenty-four hours nicotine (Nicoderm CQ) 21 MG/24HR patch Indications: Cigarette smoker motivated to quit Place 1 patch on the skin Every 24 hours. 30 patch 0 11/15/2022 06/28/2023 Discontinued (Stop taking at discharge) Start: 11-12-2022 End: 12-12-2022 take 1 puff(s) by inhalation four times daily as needed nicotine (Nicotrol) 10 MG inhaler Indications: Encounter for smoking cessation counseling Inhale 1 puff 4 times daily as needed for smoking cessation. 42 each 11 11/12/2022 11/15/2022 Discontinued Start: 11-04-2022 End: 11-08-2022 nicotine (Nicoderm, Step 1) 21 MG/24HR patch 1 patch Start: 03-17-2022 End: 03-19-2022 nicotine polacrilex (Nicoret te) gum 2 mg Start: 03-16-2022 End: 03-19-2022 nicotine (Nicoderm, Step 1) 21 MG/24HR patch 1 patch OLANZapine 5 mg oral tablet (20 sources) Atypical Antipsychotic Start: 08-26-2023 End: 09-25-2023 take 0.5 tablet by mouth twice daily OLANZapine (ZyPREXA) 5 MG tablet Indications: Anxiety Take 0.5 tablets (2.5 mg) by mouth 2 times daily. 30 tablet 08/26/2023 09/16/2023 Discontinued (Therapy completed) Start: 08-11-2023 End: 08-15-2023 take 2.5 mg by mouth twice daily 2.5 mg, Oral, 2 times daily, First dose (after last modification) on Thu08/12/23 at 1500, Can take with Vistaril Start: 06-25-2023 End: 06-26-2023 OLANZapine (ZyPREXA) tablet 7.5 mg Start: 11-12-2022 End: 08-26-2023 take 1 tablet by mouth once daily OLANZapine (ZyPREXA) 5 MG tablet Indications: Anxiety Take 1 tablet (5 mg) by mouth Nightly. 30 tablet 06/28/2023 08/26/2023 Discontinued (Reorder) Start: 11-04-2022 End: 11-08-2022 OLANZapine (ZyPREXA) tablet 7.5 mg Start: 07-11-2022 End: 07-11-2022 take 5 mg by mouth once daily 5 mg, Oral, Nightly, [facility]ir [facility] dose on Thu07/11/22 at 2100 Start: 07-11-2022 End: 07-11-2022 take 5 mg by mouth once daily 5 mg, Oral, Nightly, [facility] dose on Thu07/11/22 at 2100 Start: 06-27-2022 End: 11-12-2022 take 1 tablet by mouth once daily OLANZapine (ZyPREXA) 5 MG tablet Take 1 tablet (5 mg) by mouth Nightly. 30 tablet 1 06/27/2022 11/12/2022 Discontinued (Reorder) omeprazole 20 mg delayed release oral capsule (20 sources) Proton Pump Inhibitor Start: 12-10-2022 End: 12-17-2023 omeprazole (PriLOSEC) [address] capsule Indications: Per [place] [facility] last filled 07/30/2023 for a 30 day supply Take 1 capsule (20 mg) by mouth every morning (before breakfast). Do not crush or chew. 30 capsule 08/15/2023 12/17/2023 Discontinued (Stop taking at discharge) Start: 11-07-2022 End: 12-10-2022 take 1 capsule by mouth once daily before breakfast omeprazole (PriLOSEC) [address] capsule Take 1 capsule (40 mg) by mouth every morning (before breakfast). Do not crush or chew. 30 capsule 1 11/07/2022 12/10/2022 Discontinued (Reorder) take 1 capsule by mo uth once daily before breakfast omeprazole (PriLOSEC) [address] capsule Take 40 mg by mouth every morning (before breakfast). Do not crush or chew. 0 Active 2 ml ondansetron 2 mg/ml injection (20 sources) Serotonin-3 Receptor Antagonist Start: 12-08-2024 End: 12-08-2024 4 mg, IntraVENous, Once PRN, nausea, vomiting, Starting on Janay 12/08/24 at 1231, For 1 dose, Preprocedure Start: 06-26-2024 End: 06-26-2024 4 mg, IntraVENous, Once, On 06/26/24 at 2014, For 1 dose Start: 06-19-2024 End: 06-19-2024 4 mg, IntraVENous, Once, On 06/19/24 at 2014, For 1 dose Start: 06-18-2024 End: 06-18-2024 4 mg, IntraVENous, Once, On 06/18/24 at 1555, For 1 dose Start: 06-04-2024 End: 06-04-2024 4 mg, IntraVENous, Once, On 06/04/24 at 1555, For 1 dose Start: 05-30-2024 End: 05-30-2024 4 mg, IntraVENous, Once, On 05/30/24 at 2350, For 1 dose Start: 05-30-2024 End: 06-26-2024 take 1 tablet by mouth every eight hours as needed for nausea and vomiting ondansetron ODT (Zofran-ODT) 4 MG disintegrating tablet Take 1 tablet (4 mg) by mouth every 8 hours as needed for nausea or vomiting. 15 tablet 06/26/2024 Active Start: 05-22-2024 End: 05-22-2024 4 mg, IntraVENous, Once, On 05/22/24 at 1505, For 1 dose Start: 05-22-2024 End: 05-22-2024 4 mg, IntraVENous, Once, On 05/22/24 at 1505, For 1 dose Start: 05-07-2024 End: 05-07-2024 4 mg, IntraVENous, Once, On 05/07/24 at 1640, For 1 dose Start: 05-07-2024 End: 05-14-2024 take 1 tablet by mouth every eight hours as needed for nausea and vomiting ondansetron ODT (Zofran-ODT) 4 MG disintegrating tablet Take 1 tablet (4 mg) by mouth every 8 hours as needed for nausea or vomiting for up to 7 days. 20 tablet 05/07/2024 05/14/2024 Active Start: 04-17-2024 End: 04-20-2024 take 4 mg intravenously every six hours as needed for nausea and vomiting 4 mg, IntraVENous, Every 6 hours PRN, nausea, vomiting, Starting on 04/17/24 at 0050 Start: 04-04-2024 End: 04-04-2024 4 mg, IntraVENous, Once, On Thu04/04/24 at 0430, For 1 dose Start: 03-22-2024 End: 03-22-2024 4 mg, IntraVENous, Once, On Thu03/22/24 at 1520, For 1 dose Start: 01-20-2024 End: 01-20-2024 4 mg, IntraVENous, Once, On Thu01/20/24 at 1210, For 1 dose Start: 01-08-2024 End: 01-26-2024 take 1 tablet by mouth every eight hours as needed for nausea and vomiting ondansetron ODT (Zofran-ODT) 4 MG disintegrating tablet Take 1 tablet (4 mg) by mouth every 8 hours as needed for nausea or vomiting for up to 7 days. 15 tablet 01/08/2024 01/26/2024 Discontinued (Stop taking at discharge) Start: 01-08-2024 End: 01-08-2024 4 mg, IntraVENous, Once, On Thu01/08/24 at 0550, For 1 dose Start: 12-13-2023 End: 12-17-2023 take 1 tablet by mouth every eight hours as needed for nausea and vomiting 4 mg, Oral, Every 8 hours PRN, nausea, vomiting, Starting on 12/13/23 at 2322 Start: 12-13-2023 End: 12-13-2023 take 4 mg by mouth once 4 mg, Oral, Once, On 12/13/23 at 2305, For 1 dose Start: 12-13-2023 End: 12-13-2023 4 mg, IntraVENous, Once, On 12/13/23 at 1315, For 1 dose Start: 11-18-2023 End: 11-18-2023 Start: 11-18-2023 End: 11-18-2023 Start: 11-17-2023 End: 11-18-2023 Start: 10-16-2023 End: 10-19-2023 take 1 tablet by mouth every six hours ondansetron (Zofran) 4 MG tablet Take 1 tablet (4 mg) by mouth in the morning and 1 tablet (4 mg) at noon and 1 tablet (4 mg) in the evening and 1 tablet (4 mg) before bedtime. Do all this for 3 days. 12 tablet 10/16/2023 10/19/2023 Active Start: 10-16-2023 End: 10-16-2023 4 mg, IntraVENous, Once, On Thu10/16/23 at 1225, For 1 dose Start: 10-01-2023 End: 10-08-2023 take 1 tablet by mouth every eight hours as needed for nausea and vomiting ondansetron ODT (Zofran-ODT) 4 MG disintegrating tablet Take 1 tablet (4 mg) by mouth every 8 hours as needed for nausea or vomiting for up to 7 days. 20 tablet 10/01/2023 10/08/2023 Active Start: 10-01-2023 End: 10-01-2023 4 mg, IntraVENous, Once, On Janay 10/01/23 at 0125, For 1 dose Start: 08-11-2023 End: 08-11-2023 take 1 tablet by mouth every six hours as needed for nausea and vomiting 4 mg, Oral, Every 6 hours PRN, nausea, vomiting, Starting on Tu08/11/23 at 0253 Start: 08-10-2023 End: 08-10-2023 4 mg, IntraVENous, Once, On 08/10/23 at 2115, For 1 dose Start: 11-12-2022 End: 06-28-2023 ondansetron ODT (Zofran-ODT) disintegrating tablet 4 mg Start: 11-04-2022 End: 11-08-2022 ondansetron ODT (Zofran-ODT) disintegrating tablet 4 mg Start: 07-11-2022 End: 07-11-2022 take 1 tablet by mouth every eight hours as needed for nausea and vomiting 4 mg, Oral, Every 8 hours PRN, nausea, vomiting, Starting on Thu07/11/22 at 0311 Start: 03-15-2022 End: 03-19-2022 take 1 tablet by mouth every six hours as needed for nausea and vomiting ondansetron ODT (Zofran-ODT) disintegrating tablet 4 mg ondansetron ODT (Zofran-ODT) disintegrating tablet 4 mg (10 sources) Start: 04-04-2024 End: 04-06-2024 take 1 tablet by mouth every eight hours as needed for nausea and vomiting ondansetron ODT (Zofran-ODT) disintegrating tablet 4 mg Start: 02-05-2024 End: 02-08-2024 take 1 tablet by mouth every eight hours as needed for nausea and vomiting ondansetron ODT (Zofran-ODT) disintegrating tablet 4 mg Start: 01-20-2024 End: 01-26-2024 take 1 tablet by mouth every eight hours as needed for nausea and vomiting ondansetron ODT (Zofran-ODT) disintegrating tablet 4 mg Start: 10-16-2023 End: 10-18-2023 take 1 tablet by mouth every eight hours as needed for nausea and vomiting ondansetron ODT (Zofran-ODT) disintegrating tablet 4 mg Start: 06-24-2023 End: 06-28-2023 take 1 tablet by mouth every eight hours as needed for nausea and vomiting ondansetron ODT (Zofran-ODT) disintegrating tablet 4 mg pantoprazole (ProtoNix) 40 m g in sodium chloride (PF) 0.9 % 10 mL injection (4 sources) Start: 05-07-2024 End: 05-07-2024 40 mg, IntraVENous, Administ er over 2 Minutes, Once, On 05/07/24 at 1640, For 1 dose, Reconstitute with 10 ml NS. Vial expires 2 hrs after reconstitution. Start: 12-14-2023 End: 12-15-2023 take 1 dose by mouth twice daily 40 mg, IntraVENous, Administer over 2 Minutes, 2 times daily, First dose on 12/14/23 at 2100, Give only if unable to tolerate po. phenazopyridine hydrochlorid e 100 mg oral tablet (2 sources) Start: 07-28-2019 End: 07-28-2019 phenazopyridine (PYRIDIUM) tablet 200 mg Start: 07-28-2019 take 1 tablet by [place] th three times daily as needed for pain phenazopyridine (PYRIDIUM) 200 MG tablet Take 1 tablet by mouth 3 times daily as needed for Pain (dysuria) 6 tablet 0 07/28/2019 Active PHENobarbital 97.2 mg oral tablet (20 sources) Start: 02-05-2024 End: 02-05-2024 take 97.2 mg by mouth once 97.2 mg, Oral, Once, On Thu02/05/24 at 2030, For 1 dose Start: 02-04-2024 End: 02-04-2024 take 97.2 mg by mouth once 97.2 mg, Oral, Once, On Janay 02/04/24 at 1650, For 1 dose Start: 12-16-2023 End: 12-17-2023 take 1 tablet by mouth every four hours PHENobarbital tablet 32.4 mg Start: 12-14-2023 End: 12-15-2023 take 1 tablet by mouth every four hours 97.2 mg, Oral, Every 4 hours, First dose on Thu12/14/23 at 0300, For 9 doses, HOLD for sedation, SBP Start: 12-13-2023 End: 12-13-2023 take 97.2 mg by mouth once 97.2 mg, Oral, Once, On 12/13/23 at 2315, For 1 dose Start: 08-10-2023 End: 08-10-2023 take 97.2 mg by mouth once 97.2 mg, Oral, Once, On 08/10/23 at 2020, For 1 dose Start: 06-28-2023 End: 06-28-2023 take 1 tablet by mouth every four hours PHENobarbital tablet 16.2 mg Start: 06-24-2023 End: 06-25-2023 take 1 tablet by mouth every six hours 97.2 mg, Oral, Every 6 hours, First dose on Thu06/25/23 at 0220 Start: 11-07-2022 End: 11-08-2022 take 1 tablet by mouth every six hours PHENobarbital (Luminal) tablet 32.4 mg Start: 11-05-2022 End: 11-06-2022 take 1 tablet by mouth every six hours PHENobarbital (Luminal) tablet 64.8 mg Start: 11-03-2022 End: 11-05-2022 take 1 tablet by mouth every four hours PHENobarbital (Luminal) tablet 97.2 mg Start: 07-11-2022 End: 07-11-2022 take 1 tablet by mouth every four hours 97.2 mg, Oral, Every 4 hours, First dose on Thu07/11/22 at 0315 Start: 05-24-2022 End: 05-24-2022 PHENobarbital (Luminal) tabl et 97.2 mg Start: 03-18-2022 End: 03-19-2022 take 1 tablet by mouth every four hours PHENobarbital (Luminal) tablet 32.4 mg Start: 03-17-2022 End: 03-18-2022 take 1 tablet by mouth every four hours PHENobarbital (Luminal) tablet 64.8 mg Start: 03-15-2022 End: 03-17-2022 take 1 tablet by mouth every four hours PHENobarbital (Luminal) tablet 97.2 mg polyethylene glycol 3350 00419 mg powder for oral solution (16 sources) Osmotic Laxative Start: 04-04-2024 End: 04-06-2024 take 17 g by mouth every twenty-four hours as needed for constipation Start: 02-05-2024 End: 02-08-2024 take 17 g by mouth every twenty-four hours as needed for constipation Start: 01-20-2024 End: 01-26-2024 take 17 g by mouth every twenty-four hours as needed for constipation Start: 12-14-2023 End: 12-17-2023 take 17 g by mouth every twenty-four hours as needed for constipation Start: 11-18-2023 End: 11-28-2023 take 17 g by mouth every twenty-four hours as needed for constipation Start: 10-16-2023 End: 10-18-2023 take 17 g by mouth every twenty-four hours as needed for constipation 17 g, Oral, Daily PRN, constipation, Starting on Thu10/16/23 at 1522, 1st line for treatment of constipation - give scheduled if no bowel movement in past 24 hours. Start: 06-24-2023 End: 06-28-2023 take 17 g by mouth every twenty-four hours as needed for constipation 17 g, Oral, Daily PRN, constipation, Starting on Thu06/24/23 at 2249, 1st line for treatment of constipation - give scheduled if no bowel movement in past 24 hours. Start: 11-08-2022 End: 11-08-2022 polyethylene glycol (PEG) 33 50 (Miralax) packet 17 g microencapsulated potassium chloride 10 meq extended release oral tablet (12 sources) Start: 04-16-2024 End: 04-20-2024 Start: 02-04-2024 End: 02-04-2024 40 mEq, Oral, Once, On Janay 04/06/23 at 1435, For 1 dose, Best given with food and plenty of water to minimize gastric irritation. Do not crush or chew. Start: 12-15-2023 End: 12-15-2023 20 mEq, Oral, Once, On 02/13/23 at 0745, For 1 dose, Best given with food and plenty of water to minimize gastric irritation. Do not crush or chew. Start: 11-22-2023 End: 11-22-2023 Start: 11-21-2023 End: 11-21-2023 Start: 11-21-2023 End: 11-22-2023 1000 ml potassium chloride 0.02 meq/ml / sodium chloride 9 mg/ml injection (2 sources) Start: 04-04-2024 End: 04-04-2024 take 100 mL intravenously every hour 100 mL/hr, IntraVENous, Continuous, Starting on Thu04/04/24 at 0635, For 15 hours predniSONE 20 mg oral tablet (2 sources) Start: 06-12-2022 End: 06-12-2022 predniSONE (Deltasone) tablet 40 mg Start: 06-12-2022 End: 06-17-2022 take 2 tablets by mouth once daily predniSONE (Deltasone) 20 MG tablet Take 2 tablets (40 mg) by mouth daily for 5 days. 10 tablet 0 06/12/2022 06/17/2022 Active prochlorperazine 5 mg/ml injectable solution (2 sources) Phenothiazine Start: 11-18-2023 End: 11-28-2023 take 5 mg intravenously every six hours as needed for nausea and vomiting propranolol hydrochloride 20 mg oral tablet (9 sources) beta-Adrenergic Amanda Start: 02-08-2024 End: 02-07-2025 take 1 tablet by mouth three times daily as needed for anxiety propranolol (Inderal) 20 MG tablet Take 1 tablet (20 mg) by mouth 3 times daily as needed (anxiety). 90 tablet 1 02/08/2024 03/30/2024 Discontinued (Ineffective) sertraline 25 mg oral tablet (20 sources) Serotonin Reuptake Inhibitor Start: 11-04-2022 End: 11-08-2022 take 25 mg by mouth once daily 25 mg, Oral, Daily, First dose on Thu11/04/22 at 1000 Start: 03-20-2022 End: 06-10-2023 take 1 tablet by mouth once daily sertraline (Zoloft) 25 MG tablet Indications: Anxiety Take 1 tablet (25 mg) by mouth daily. 30 tablet 6 11/12/2022 03/18/2023 Discontinued Start: 03-16-2022 End: 03-19-2022 sertraline (Zoloft) tablet 2 5 mg simethicone 80 mg chewable t ablet (4 sources) Start: 11-19-2023 End: 11-28-2023 Start: 10-16-2023 End: 10-18-2023 take 80 mg by mouth four times daily as needed 80 mg, Oral, 4 times daily PRN, flatulence, Starting on Thu10/16/23 at 2034 5 ml sodium chloride 9 mg/ml injection (20 sources) Start: 12-08-2024 End: 12-08-2024 10 mL, IntraVENous, Every 12 hours scheduled (2 times per day), First dose on Thu12/08/24 at 2100, Preprocedure Start: 12-08-2024 End: 12-08-2024 10 mL, IntraVENous, Every 12 hours scheduled (2 times per day), First dose on [facility] 12/08/24 at 2100 Start: 12-08-2024 End: 12-08-2024 10 mL, IntraVENous, Every 12 hours scheduled (2 times per day), First dose on [facility] 12/08/24 at 2100, Preprocedure Start: 12-08-2024 End: 12-08-2024 10 mL, IntraVENous, Every 12 hours scheduled (2 times per day), First dose on [facility] 12/08/24 at 2100 Start: 12-08-2024 End: 12-08-2024 take 100 mL intravenously every hour as needed, then take 20 mL intravenously every hour as needed 5-250 mL/hr, IntraVENous, PRN, if patient receiving piggyback infusions and maintenance fluids are not ordered OR KVO fluids to protect IV site / prevent frequent line interruptions/ long duration, Starting on [facility] 12/08/24 at 1231, Preprocedure, For piggyback infusion, administer at same rate as piggyback for a total of 25 mL. Enter 25 mL into dose field and piggyback rate into rate field of order. If piggyback is infusing at a rate less than 100 mL/hr, enter 25 mL into dose field and 100 mL/hr into rate field of order. For KVO fluids, enter rate of 20 mL/hr or less into rate field of order. Start: 12-08-2024 End: 12-08-2024 take 10 mL intravenously once as needed 10 mL, IntraVENous, PRN, line care, Starting on [facility] 12/08/24 at 1231, Preprocedure, After every IV line use Start: 06-26-2024 End: 06-26-2024 1,000 mL, IntraVENous, at 1, 000 mL/hr, Administer over 1 Hours, Once, On 06/26/24 at 2015, For 1 dose Start: 06-19-2024 End: 06-19-2024 1,000 mL, IntraVENous, at 1, 000 mL/hr, Administer over 1 Hours, Once, On 06/19/24 at 2015, For 1 dose Start: 06-18-2024 End: 06-18-2024 1,000 mL, IntraVENous, at 1, 000 mL/hr, Administer over 1 Hours, Once, On 06/18/24 at 1555, For 1 dose Start: 06-12-2024 End: 06-12-2024 1,000 mL, IntraVENous, at 1, 000 mL/hr, Administer over 1 Hours, Once, On 06/12/24 at 2210, For 1 dose Start: 06-04-2024 End: 06-04-2024 1,000 mL, IntraVENous, at 1, 000 mL/hr, Administer over 1 Hours, Once, On 06/04/24 at 1555, For 1 dose Start: 05-07-2024 End: 05-07-2024 1,000 mL, IntraVENous, at 1, 000 mL/hr, Administer over 1 Hours, Once, On 05/07/24 at 1640, For 1 dose Start: 04-17-2024 End: 04-18-2024 take 100 mL intravenously every hour 100 mL/hr, IntraVENous, Continuous, Starting on 04/17/24 at 0945, For 1 day Start: 04-16-2024 End: 04-17-2024 take 75 mL intravenously every hour 75 mL/hr, IntraVENous, Continuous, Starting on 04/16/24 at 2105, For 1 day Start: 04-16-2024 End: 04-16-2024 1,000 mL, IntraVENous, at 1, 000 mL/hr, Administer over 1 Hours, Once, On 04/16/24 at 1750, For 1 dose Start: 04-04-2024 End: 04-06-2024 take 250 mL intravenously every hour 250 mL/hr, IntraVENous, Continuous, Starting on Thu04/04/24 at 1600 Start: 03-22-2024 End: 03-22-2024 1,000 mL, IntraVENous, at 1, 000 mL/hr, Administer over 1 Hours, Once, On Tu03/22/24 at 1520, For 1 dose Start: 02-06-2024 End: 02-07-2024 take 5 mL intravenously every twelve hours 5 mL, IntraVENous, Every 12 hours, First dose on 02/06/24 at 0900 Start: 02-04-2024 End: 02-04-2024 1,000 mL, IntraVENous, at 1, 000 mL/hr, Administer over 1 Hours, Once, On Janay 02/04/24 at 1555, For 1 dose Start: 01-20-2024 End: 01-25-2024 take 75 mL intravenously every hour 75 mL/hr, IntraVENous, Continuous, Starting on Thu01/20/24 at 1905 Start: 01-20-2024 End: 01-20-2024 1,000 mL, IntraVENous, at 1, 000 mL/hr, Administer over 1 Hours, Once, On Thu01/20/24 at 1610, For 1 dose Start: 01-08-2024 End: 01-08-2024 1,000 mL, IntraVENous, at 1, 000 mL/hr, Administer over 1 Hours, Once, On Thu01/08/24 at 0550, For 1 dose Start: 12-14-2023 End: 12-15-2023 take 100 mL intravenously every hour 100 mL/hr, IntraVENous, Continuous, Starting on Thu12/14/23 at 0745 Start: 12-14-2023 End: 12-14-2023 take 75 mL intravenously every hour 75 mL/hr, IntraVENous, Continuous, Starting on Thu12/14/23 at 0025, For 13 hours Start: 12-13-2023 End: 12-13-2023 1,000 mL, IntraVENous, at 2, 000 mL/hr, Administer over 0.5 Hours, Once, On Thu12/13/23 at 1315, For 1 dose Start: 11-27-2023 End: 11-28-2023 Start: 11-18-2023 End: 11-18-2023 Start: 11-18-2023 End: 11-25-2023 Start: 10-16-2023 End: 10-18-2023 10 mL, IntraVENous, Every 12 hours scheduled (2 times per day), First dose on Thu10/16/23 at 2100 Start: 10-16-2023 End: 10-18-2023 take 100 mL intravenously every hour as needed, then take 20 mL intravenously every hour as needed 5-250 mL/hr, IntraVENous, PRN, if patient receiving piggyback infusions and maintenance fluids are not ordered OR KVO fluids to protect IV site / prevent frequent line interruptions/ long duration, Starting on Thu10/16/23 at 1522, For piggyback infusion, administer at same rate as piggyback for a total of 25 mL. Enter 25 mL into dose field and piggyback rate into rate field of order. If piggyback is infusing at a rate less than 100 mL/hr, enter 25 mL into dose field and 100 mL/hr into rate field of order. For KVO fluids, enter rate of 20 mL/hr or less into rate field of order. Start: 10-16-2023 End: 10-18-2023 take 10 mL intravenously once as needed 10 mL, IntraVENous, PRN, line care, Starting on Thu10/16/23 at 1522, After every IV line use Start: 10-16-2023 End: 10-16-2023 take 125 mL intravenously every hour 125 mL/hr, IntraVENous, Continuous, Starting on Thu10/16/23 at 1225 Start: 10-16-2023 End: 10-16-2023 1,000 mL, IntraVENous, at 2, 000 mL/hr, Administer over 0.5 Hours, Once, On Thu10/16/23 at 0155, For 1 dose Start: 10-01-2023 End: 10-01-2023 1,000 mL, IntraVENous, at 1, 000 mL/hr, Administer over 1 Hours, Once, On Thu10/01/23 at 0125, For 1 dose Start: 08-10-2023 End: 08-11-2023 1,000 mL, IntraVENous, at 1, 000 mL/hr, Administer over 1 Hours, Once, On Thu08/10/23 at 2350, For 1 dose Start: 06-25-2023 End: 06-25-2023 sodium chloride 0.9 % bolus 1,000 mL Start: 05-25-2022 End: 05-25-2022 sodium chloride 0.9 % bolus 1,000 mL Start: 03-15-2022 End: 03-15-2022 sodium chloride 0.9 % bolus 1,000 mL sucralfate 1000 mg oral tablet (8 sources) Aluminum Complex Start: 06-26-2024 End: 06-26-2024 1 g, Oral, Once, On Thu06/26/24 at 2015, For 1 dose, Give on an empty stomach (1 hr before meals, at bedtime). Separate all other meds by at least 2 hours (exception: antacids may be given only 30 minutes apart). Start: 06-13-2024 End: 06-18-2024 take 1 tablet by mouth four times daily before mealtime sucralfate (Carafate) 1 g tablet Take 1 tablet (1 g) by mouth 4 times daily (before meals and nightly) for 5 days. 20 tablet 06/13/2024 06/18/2024 Start: 06-12-2024 End: 06-12-2024 1 g, Oral, Once, On Sun at 2210, For 1 dose, Give on an empty stomach (1 hr before meals, at bedtime). Separate all other meds by at least 2 hours (exception: antacids may be given only 30 minutes apart). therapeutic multivitamin-minerals (Theragran-M) tablet (2 sources) Start: 11-04-2022 End: 11-08-2022 therapeutic multivitamin-minerals (Theragran-M) tablet traMADol (3 sources) Opioid Agonist Start: 07-11-2022 End: 07-11-2022 take 1 tablet by mouth every four hours traMADol (Ultram) tablet 100 mg Start: 06-12-2022 End: 06-12-2022 traMADol (Ultram) tablet 50 mg traZODone hydrochloride 100 mg oral tablet (20 sources) Serotonin Reuptake Inhibitor Start: 02-05-2024 End: 02-08-2024 take 100 mg by mouth once daily as needed for sleep 100 mg, Oral, Nightly PRN, sleep, Starting on Thu02/05/24 at 2019 Start: 11-18-2023 End: 11-28-2023 Start: 08-11-2023 End: 09-16-2023 take 1 tablet by mouth once daily traZODone (Desyrel) 100 MG tablet Take 1 tablet (100 mg) by mouth Nightly. 30 tablet 08/15/2023 09/16/2023 Discontinued (Therapy completed) Start: 06-26-2023 End: 06-26-2023 traZODone (Desyrel) tablet 5 0 mg Start: 06-26-2023 End: 06-26-2023 traZODone (Desyrel) tablet 5 0 mg Start: 12-10-2022 End: 06-28-2023 take 2 tablets by mouth once daily traZODone (Desyrel) 50 MG tablet Indications: Alcohol-induced insomnia (CMS/HCC) (HCC) Take 2 tablets (100 mg) by mouth Nightly. 30 tablet 6 12/10/2022 06/28/2023 Discontinued (Stop taking at discharge) Start: 11-12-2022 End: 06-10-2023 take 1 tablet by mouth once daily traZODone (Desyrel) 50 MG tablet Indications: Alcohol-induced insomnia (CMS/HCC) (HCC) Take 1 tablet (50 mg) by mouth Nightly. 30 tablet 6 11/12/2022 12/10/2022 Discontinued Start: 11-04-2022 End: 11-08-2022 traZODone (Desyrel) tablet 1 00 mg Start: 07-11-2022 End: 07-11-2022 take 50 mg by mouth once daily as needed for sleep 50 mg, Oral, Nightly PRN, sleep, Starting on Thu07/11/22 at 0311 Start: 03-15-2022 End: 03-19-2022 traZODone (Desyrel) tablet 1 00 mg water 1000 mg/ml injectable solution (2 sources) Start: 11-18-2023 End: 11-18-2023 (8 sources) Start: 11-21-2023 End: 11-28-2023 Start: 11-18-2023 End: 11-18-2023 Start: 11-18-2023 End: 11-28-2023 take 4 mg by mouth every eight hours as needed for nausea and vomiting [Order 1 Start] Name: ondansetron ODT (Zofran-ODT) disintegrating tablet 4 mg Signed Summary: 4 mg, Oral, Every 8 hours PRN, nausea, vomiting, Starting on Thu11/18/23 at 0427, 1st Line. If inadequate response within 60 minutes, proceed to next-line agent or contact provider if no further options ordered. Patient should allow tablet to dissolve on tongue. Do not remove from blister pack until just before administering. [Order 1 End] [Order 2 Start] Name: ondansetron (Zofran) injection 4 mg Signed Summary: 4 mg, IntraVENous, Every 6 hours PRN, nausea, vomiting, Starting on Thu11/18/23 at 0427, 1st Line. Give IV if patient is unable to take orally. If inadequate response within 60 minutes, proceed to next-line agent or contact provider if no further options ordered. [Order 2 End] Start: 11-17-2023 End: 11-18-2023 (6 sources) Start: 11-20-2023 End: 11-28-2023 Start: 11-20-2023 End: 11-20-2023 Start: 11-18-2023 End: 11-18-2023 (4 sources) Start: 11-20-2023 End: 11-21-2023 take 65 mg intravenously every six hours Start: 11-18-2023 End: 11-20-2023 take 100 mg intravenously every four hours Problems Active Problems Problem Classification Problem Date Documented Da te Episodic/Chronic Administrative/social admission (3 sources) Patient encounter status; Translations: [Tobacco abuse counseling] 11-12-2022 Episodic Alcohol-related disorders (20 sources) Alcohol withdrawal syndrome; Translations: [Alcohol withdrawal with inpatient treatment, uncomplicated] Onset: 3 Resolved: 4 03-15-2022 Chronic Anxiety disorders (20 sources) Anxiety attack ; Translations: [Panic disorder [episodic paroxysmal anxiety]] Onset: 3 Chronic Asthma (2 sources) Mild intermittent asthma; Translations: [Mild intermittent asthma, uncomplicated] 11-12-2022 Chronic Cardiac dysrhythmias (20 sources) Supraventricular tachycardia; Translations: [Supraventricular tachycardia] Onset: 9 06-06-2018 Chronic Disorders of teeth and jaw (4 sources) Disorder of teeth and supporting structures, unspecified; Translations: [Unspecified disorder of the teeth and supporting structures] Onset: 5 11-15-2024 Episodic Disorders usually diagnosed in infancy childhood or adolescence (20 sources) Dangelo de la Tourette's syndrome; Translations: [Tourette's disorder] Onset: 9 06-06-2018 Chronic Esophageal disorders (20 sources) Gastroesophageal reflux disease; Translations: [Gastro-esophageal reflux disease without esophagitis] Onset: 9 06-06-2018 Chronic Essential hypertension (20 sources) Hypertensive disorder; Translations: [Essential (primary) hypertension] Onset: 9 06-06-2018 Chronic Genitourinary symptoms and ill-defined conditions (1 source) Dysuria; Translations: [Dysuria] Episodic Gout and other crystal arthropathies (1 source) Gouty arthritis of left foot; Translations: [Gout, unspecified] Chronic Mood disorders (20 sources) Depressive disorder; Translations: [Depression] Onset: 3 11-04-2022 Chronic Nausea and vomiting (3 sources) Nausea; Translations: [Nausea] Onset: 5 11-12-2022 Episodic Nonspecific chest pain (1 source) Chest pain; Translations: [Chest pain, unspecified] Episodic Nutritional deficiencies (20 sources) Malnutrition (calorie); Translations: [Moderate protein-calorie malnutrition] Onset: 4 11-20-2023 Chronic Other aftercare (1 source) Long-term current use of drug therapy; Translations: [Other intermediate (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] 10-21-2023 Episodic Other and ill-defined heart disease (2 sources) Cardiomegaly; Translations: [Cardiomegaly] 11-21-2023 Chronic Other gastrointestinal disorders (2 sources) Personal history of other diseases of the digestive system; Translations: [Personal history of other diseases of the digestive system] Onset: 5 Episodic Other injuries and conditions due to external causes (2 sources) Closed injury of head; Translations: [Unspecified injury of head, initial encounter] 08-10-2022 Episodic Other liver diseases (6 sources) Enzyme level - finding; Translations: [Transaminitis] 06-25-2023 Episodic Other liver diseases (2 sources) Abnormal levels of other serum enzymes; Translations: [Abnormal levels of other serum enzymes] Onset: 3 Episodic Other lower respiratory disease (2 sources) Hypoxia; Translations: [Hypoxemia] 06-25-2023 Episodic Other nervous system disorders (2 sources) Lesion of radial nerve, left upper limb; Translations: [Lesion of radial nerve, left upper limb] Onset: Chronic Pancreatic disorders (not diabetes) (16 sources) Alcohol-induced chronic pancreatitis; Translations: [Alcohol-induced chronic pancreatitis] Onset: 5 03-22-2024 Chronic Phlebitis; thrombophlebitis and thromboembolism (2 sources) Thrombosis of blood vessel; Translations: [Acute embolism and thrombosis of unspecified veins of right upper extremity] 11-25-2023 Episodic Residual codes; unclassified (11 sources) Alcoholism; Translations: [Alcohol use disorder] Onset: 4 06-28-2023 Episodic Residual codes; unclassified (1 source) Tobacco use; Translations: [Tobacco use] Onset: 5 Episodic Residual codes; unclassified (2 sources) Tobacco user; Translations: [Tobacco use] 12-09-2024 Episodic Sprains and strains (2 sources) Sprain of left knee; Translations: [Sprain of unspecified site of left knee, initial encounter] 08-10-2022 Episodic Substance-related disorders (20 sources) Cocaine abuse; Translations: [Cocaine abuse, uncomplicated] Onset: 3 03-16-2022 Chronic Suicide and intentional self-inflicted injury (2 sources) Suicide attempt ; Translations: [Suicide attempt, initial encounter] Episodic Unclassified (1 source) Alcohol abuse with withdrawal, unspecified; Translations: [Alcohol abuse with withdrawal, unspecified] Onset: 5 Unclassified (2 sources) Other; Translations: [Other] Onset: 5 Unclassified (2 sources) Pancreatitis- Blood in emesis Onset: 5 Unclassified (1 source) Alcohol use, unspecified with withdrawal, uncomplicated (HCC); Translations: [Alcohol use, unspecified with withdrawal, uncomplicated (HCC)] Onset: 4 Unclassified (2 sources) Addiction Problem; Translations: [Addiction Problem] Onset: 5 Unclassified (1 source) Elevation of levels of liver transaminase levels; Translations: [Elevation of levels of liver transaminase levels] Onset: 5 Unclassified (1 source) Alcohol use, unspecified, uncomplicated; Translations: [Alcohol use, unspecified, uncomplicated] Onset: 5 Past or Other Problems Problem Classification Problem Date Documented Da te Episodic/Chronic Abdominal pain (20 sources) Epigastric pain; Translations: [Epigastric pain] Onset: 01-20-2024 01-08-2024 Episodic Alcohol-related disorders (20 sources) Insomnia caused by alcohol; Translations: [Alcohol use, unspecified with alcohol-induced sleep disorder] Onset: 12-13-2023 11-12-2022 Episodic Allergic reactions (20 sources) Inflammatory dermatosis; Translations: [Dermatitis, unspecified] Onset: 11-04-2022 11-04-2022 Episodic Cardiac dysrhythmias (20 sources) Palpitations; Translations: [Palpitations] Onset: 11-04-2022 11-04-2022 Episodic Gastrointestinal hemorrhage (20 sources) Hematemesis - cause unknown; Translations: [Hematemesis] Onset: 12-13-2023 12-17-2023 Episodic Immunizations and screening for infectious disease (20 sources) Interferon gamma assay positive; Translations: [Nonspecific reaction to cell mediated immunity measurement of gamma interferon antigen response without active tuberculosis] Onset: 01-07-2023 12-16-2022 Episodic Mood disorders (20 sources) Mood disorders; Translations: [Depression, unspecified] Onset: 11-04-2022 Resolved: 02-05-2024 11-04-2022 Other gastrointestinal disorders (20 sources) History of pancreatitis; Translations: [Personal history of other diseases of the digestive system] Onset: 01-07-2023 01-07-2023 Episodic Other liver diseases (20 sources) Elevated liver enzymes level; Translations: [Abnormal levels of other serum enzymes] Onset: 03-16-2022 03-16-2022 Episodic Other screening for suspected conditions (not mental disorders or infectious disease) (20 sources) Blood chemistry abnormal; Translations: [Other specified abnormal findings of blood chemistry] Onset: 11-04-2022 11-04-2022 Episodic Pancreatic disorders (not diabetes) (20 sources) Alcohol-induced acute pancreatitis; Translations: [Acute pancreatitis] Onset: 03-29-2018 Resolved: 01-07-2023 03-29-2018 Episodic Pneumonia (except that caused by tuberculosis or sexually transmitted disease) (20 sources) Pneumonia; Translations: [Pneumonia, unspecified organism] Onset: 11-04-2022 11-04-2022 Episodic Substance-related disorders (20 sources) Opioid abuse; Translations: [Opioid use, unspecified, uncomplicated] Onset: 03-16-2022 11-07-2022 Episodic Unclassified (1 source) Unknown / UNK(Unknown) Onset: 10-03-2016 Unclassified (1 source) PALPITATIONS,SAT Onset: 10-03-2016 Unclassified (1 source) Alcohol use, unspecified with withdrawal, uncomplicated (HCC); Translations: [Alcohol use, unspecified with withdrawal, uncomplicated (HCC)] Onset: 04-04-2024 Unclassified (1 source) Elevation of levels of liver transaminase levels; Translations: [Elevation of levels of liver transaminase levels] Onset: 03-22-2024 Unclassified (1 source) Alcohol use, unspecified, uncomplicated; Translations: [Alcohol use, unspecified, uncomplicated] Onset: 03-22-2024 Results Test Name Value Interpretation Reference Range Facility 36on 12-16-2024 36 Normal [facility] 36on 12-13-2024 36 Normal [facility] [id number] 12-08-2024 [id number] Normal [facility] [id number] 12-08-2024 [id number] Request from [facility] for setting up transport home. WC van set up in [employer], claimed by [facility] at 3pm. Normal [facility] Anesthesia Noteon 12-08-2024 Anesthesia Note Normal [facility] Anesthesia Note Normal [facility] Nursing Noteon 12-08-2024 Nursing Note Normal [facility] Op Noteon 12-08-2024 Op Note Normal [facility] 36on 12-01-2024 36 Normal [facility] H AND P Exam - [facility] 11-30-2024 H&P Exam - Hospitalist [facility] Medical Records Department [address] [place] [address] H P Exam - Hospitalist 11/30/24 0022 MR#: [id number] Acct: [id number] Name: RORO VALDIVIA Rep #: [id number] : 1985 39 From: Lázaro Brush DO PCP: Care Physician,No Primary Status:ADM IN Location: ND3 [id number] [facility] - General General Date of Admission: 11/30/24 Date of Service: 11/30/24 Chief Complaint: Requesting EtOH Detox. HPI Narrative RORO VALDIVIA, is a 39 M with a past medical history of essential hypertension; on metoprolol and clonidine twice daily, chronic tobacco abuse, history of opiate abuse; on methadone 140 mg daily, history of EtOH abuse; with cirrhosis and history of EtOH detox, history of seizure disorder; currently not on treatment, history of Tourette syndrome, depression; on venlafaxine and GERD; on pantoprazole who presents to [facility] ER requesting EtOH detox. Mr. Valdivia reports his symptoms began a few days prior to admission after he missed multiple doses of his mental health medications which caused frequent panic attacks which he states triggered him to start drinking alcohol. He states he has drank 1/2 gallon of vodka daily for the past 4 days with his last drink at 17:30 hours on the evening of November 29, 2024. He admits to associated nausea and anxiety. In the ER he was noted to have a VENITA of 33.5 mg/dL with UDS positive for methadone and cannabinoids. He was then admitted to the general medical floor for treatment under the EtOH detox protocol for a state that is expected to extend beyond 2 midnights. [facility] Medical History Anxiety Liver fibrosis Cirrhosis of liver Tourette disease Seizure Home Medications ???Medication ???Instructions ???Recorded ???Last Taken ???Type clonidine HCl 0.1 mg tablet 0.1 mg PO BID anxiety 11/29/24 Unk nown History hydroxyzine HCl 25 mg tablet 25 mg PO QHS PRN sleep 11/29/24 Un known History melatonin 10 mg capsule 20 mg PO QHS sleep 11/29/24 Unknow n History methadone 10 mg tablet 140 mg PO DAILY opiates and Unknown History alcohol cravings and anxiety metoprolol succinate 50 mg PO DAILY palpitations Unknown History pantoprazole 20 mg PO BID gerd 11/29/24 Unknown History venlafaxine 75 mg tablet 75 mg PO DAILY anxiety 11/29/24 Un known History Allergy/AdvReac Type Severity Reaction Status Date / Time No Known Allergies Allergy Verified 11/29/24 19:54 Social History Smoking Status: Current every day smoker tobacco type: cigarettes ROS ROS Narrative Review of Systems: Constitutional: Patient denies fever or chills. Eyes: Patient denies changes in vision or discharge from eyes. ENT: Patient denies runny nose, sore throat or ear pain. Resp: Patient denies shortness of breath or cough. CV: Patient denies chest pain, palpitations, heart racing or lower extremity edema. GI: Patient admits to nausea but he denies vomiting, abdominal pain, constipation or diarrhea. : Patient denies dysuria or hematuria. MSK: Patient denies arthralgias or myalgias. Skin: Patient denies rash, abscess, wounds or jaundice. Psych: Patient admits to depression with anxiety and panic attacks triggering drinking as per HPI. He denies SI or HI. Neuro: Patient denies headache, paresthesias, hallucinations, seizures or focal neurologic deficits. Allergy: Patient denies lip swelling, tongue swelling or urticaria. Hematology: Patient denies easy bleeding or easy bruisability. Endocrinology: Patient denies polyuria, polydipsia, polyphagia or heat/cold intolerance. 14 point ROS otherwise negative except for positives noted above HPI. Vital Signs Vital Signs Vital Signs: 11/29/24 19:54 11/29/24 21:21 11/29/24 21:21 Temperature 97.2 F L 97.2 F L Temperature Source Temporal Oral Pulse Rate 92 72 70 Respiratory Rate 24 H 16 16 Blood Pressure 125/100 H 145/90 H 145/90 H Blood Pressure Mean 108 108 108 Blood Pressure Source Monitor Blood Pressure Position Semi-Fowlers Blood Pressure Location Right Arm Pulse Ox 100 99 99 Oxygen Delivery Method Room Air Room Air Room Air 11/29/24 22:00 11/29/24 22:46 11/29/24 23:00 Temperature 98.7 F Temperature Source Pulse Rate 78 77 77 Respiratory Rate 16 16 18 Blood Pressure 134/90 H 133/66 H 122/77 H Blood Pressure Mean 104 88 92 Blood Pressure Source Blood Pressure Position Blood Pressure Location Pulse Ox 98 98 97 Oxygen Delivery Method Room Air Room Air 11/30/24 00:00 Temperature Temperature Source Pulse Rate 81 Respiratory Rate 16 Blood Pressure 118/74 Blood Pressure Mean 88 Blood Pressure Source (more content not included)... Normal [facility] Absolute lymphocyte countOrd ered By: Amilcar Dumont on 11-29-2024 Lymphocytes Auto (Unsp spec) [#/Vol] 1.62 10*3/uL 0.83-4.51 [facility] Absolute neutrophil countOrd ered By: Amilcar Dumont on 11-29-2024 Neutrophils (Bld) [#/Vol] 3.6 10*3/uL 2.0-7.7 [facility] Alcohol, Blood (Medical)-Ser umon 11-29-2024 SERUM ETOH 33.5 mg/dL High <=10.0 [facility] Comment on above: Result Comment: This test is for medical purposes only. The legal definition of intoxication varies according to local law. Performed By: #### L 505.5000, L500.4050, L501.9100, L100.0100 #### [facility] [address] [place], [address] Amphetamine detection with 1 000 ng/mL as cutoffOrdered By: Amilcar Dumont on 11-29-2024 Amphetamines Screen method >1000 ng/mL Ql (U) Negative < 200 ng/mL [facility] Anion gap in Serum or Plasma Ordered By: Amilcar Dumont on 11-29-2024 Anion gap [Moles/Vol] 14 mmol/L 5- [facility] Automated lymphocyte count a s percentage of total leukocytesOrdered By: Amilcar Dumont on 11-29-2024 Lymphocytes/100 WBC Auto (Unsp spec) 28.2 % - [facility] BUN/creatinine ratioOrdered By: Amilcar Dumont on 11-29-2024 Urea nitrogen/Creatinine [Mass ratio] 4.3 mg/mg Low - [facility] Comment on above: Previous reported re sult: 4.1 RATIOEdited by: ARMANDO on 11/29/24:8 AMENDED REPORT 11/29/242247 BUN/CRE previously reported as: 4.1 L RATIO Basophil percentageOrdered B y: Amilcar Dumont on 11-29-2024 Basophils/100 WBC (Bld) 0.3 % 0-[address] [facility] Bilirubin, totalOrdered By: Amilcar Dumont on 11-29-2024 Bilirubin [Mass/Vol] 1.48 mg/dL High 0.00-1.30 [facility] CBC W/Diff, Automatedon 11-10 Absolute Lymph 1.62 X10 3/uL Normal 0.83-4.51 [facility] Comment on above: Performed By: #### L 505.5000, L500.4050, L501.9100, L100.0100 #### [facility] [address] [place], [address] Absolute Neut 3.6 X10 3/uL Normal 2.0-7.7 [facility] Comment on above: Performed By: #### L 505.5000, L500.4050, L501.9100, L100.0100 #### [facility] [address] [place], [address] Basophils/100 WBC (Bld) 0.3 % Normal 0-[address] [facility] Comment on above: Performed By: #### L 505.5000, L500.4050, L501.9100, L100.0100 #### [facility] [address] [place], [address] Eosinophils/100 WBC (Bld) 0.5 % Normal 0-5 [facility] Comment on above: Performed By: #### L 505.5000, L500.4050, L501.9100, L100.0100 #### [facility] [address] [place], [address] Erythrocyte distribution width (RBC) [Ratio] 14.1 % Normal 11.6-14.6 [facility] Comment on above: Performed By: #### L 505.5000, L500.4050, L501.9100, L100.0100 #### [facility] [address] [place], [address] Hematocrit (Bld) [Volume fraction] 37.0 % Low 40-54 [facility] Comment on above: Performed By: #### L 505.5000, L500.4050, L501.9100, L100.0100 #### [facility] [address] [place], [address] Hemoglobin (Bld) [Mass/Vol] 12.5 g/dL Low 13.0-16.5 [facility] Comment on above: Performed By: #### L 505.5000, L500.4050, L501.9100, L100.0100 #### [facility] [address] [place], [address] IG% 0.200 Normal 0.0-0.9 [facility] Comment on above: Result Comment: IG% - Immature Granulocytes (promyelocytes, myelocytes and metamyelocytes) > 1% indicates that a LEFT SHIFT is Present. Performed By: #### L 505.5000, L500.4050, L501.9100, L100.0100 #### [facility] [address] [place], [address] Lymphocytes/100 WBC (Bld) 28.2 % Normal 19-41 [facility] Comment on above: Performed By: #### L 505.5000, L500.4050, L501.9100, L100.0100 #### [facility] [address] [place], [address] MCH (RBC) [Entitic mass] 30.2 pg Normal 27.0-32.0 [facility] Comment on above: Performed By: #### L 505.5000, L500.4050, L501.9100, L100.0100 #### [facility] [address] [place], [address] MCHC (RBC) [Mass/Vol] 33.8 g/dL Normal 32-36 [facility] Comment on above: Performed By: #### L 505.5000, L500.4050, L501.9100, L100.0100 #### [facility] [address] [place], [address] MCV (RBC) [Entitic vol] 89.4 fL Normal 80-[address] [facility] Comment on above: Performed By: #### L 505.5000, L500.4050, L501.9100, L100.0100 #### [facility] [address] [place], [address] Monocytes/100 WBC (Bld) 7.5 % Normal 0-10 [facility] Comment on above: Performed By: #### L 505.5000, L500.4050, L501.9100, L100.0100 #### [facility] [address] [place], [address] Neutrophils/100 WBC (Bld) 63.3 % Normal 47-70 [facility] Comment on above: Performed By: #### L 505.5000, L500.4050, L501.9100, L100.0100 #### [facility] [address] [place], [address] Nucleated RBC (Bld) [#/Vol] 0 10*3/uL Normal 0-5 [facility] Comment on above: Performed By: #### L 505.5000, L500.4050, L501.9100, L100.0100 #### [facility] [address] [place], [address] Platelet mean volume (Bld) [Entitic vol] 10.1 fL Normal 6.2-12.0 [facility] Comment on above: Performed By: #### L 505.5000, L500.4050, L501.9100, L100.0100 #### [facility] [address] [place], [address] Platelets (Bld) [#/Vol] 141 10*3/uL Low 150-450 [facility] Comment on above: Performed By: #### L 505.5000, L500.4050, L501.9100, L100.0100 #### [facility] [address] [place], [address] RBC (Bld) [#/Vol] 4.14 10*6/uL Low 4.6-6.2 [facility] Comment on above: Performed By: #### L 505.5000, L500.4050, L501.9100, L100.0100 #### [facility] [address] [place], [address] RDW SD 45.7 fl High 35.1-43.9 [facility] Comment on above: Performed By: #### L 505.5000, L500.4050, L501.9100, L100.0100 #### [facility] [address] [place], [address] WBC (Bld) [#/Vol] 5.8 10*3/uL Normal 4.4-11.0 [facility] Comment on above: Performed By: #### L 505.5000, L500.4050, L501.9100, L100.0100 #### [facility] [address] [place], [address] Carbon dioxide, total [Moles /volume] in Central venous bloodOrdered By: Amilcar Dumont on 11-29-2024 CO2 [Moles/Vol] 23.8 mmol/L 21.0-32.0 [facility] Chloride assayOrdered By: Edu Dumont on 11-29-2024 Chloride [Moles/Vol] 100 mmol/L 98-108 [facility] Comprehensive Metabolic Prof ilon 11-29-2024 BUN/CRE 4.3 RATIO Low - [facility] Comment on above: Result Comment: AMENDED REPORT 11/29/24 2247 BUN/CRE previously reported as: 4.1 L RATIO Performed By: #### L 505.5000, L500.4050, L501.9100, L100.0100 #### [facility] [address] [place], [address] Emergency Department Summary on 11-29-2024 Emergency Department Summary [facility] Medical Records Department [address] [place] [address] Emergency Department Summary 11/29/24 MR#: [id number] Acct: [id number] Name: RORO VALDIVIA Rep #: [id number] : 1985 39 From: Amilcar Dumont DO PCP: Care Physician,No Primary Status:REG ER Location: ED HPI History of Present Illness Chief Complaint: Substance Abuse Narrative Narrative: Chief complaint and HPI: 39-year-old male with past medical history of liver cirrhosis secondary to alcohol abuse, anxiety presents for evaluation of alcohol withdrawal and requesting detox. Patient states that he missed multiple doses of his mental health medications. This caused frequent panic attacks in which he started drinking alcohol. He states he has drank for 4 days straight about a half a gallon of vodka a day. He last drank at 1730 tonight. He endorses some nausea and anxiety. He would like detox. Has been through detox in the past. Review of systems: See HPI Medications: As listed on the chart Allergies: As listed on the chart PFSH: Per chart Vital signs: As listed on the chart. Reviewed. Physical exam: Gen: A O x3, NAD Head: Normocephalic, atraumatic Eyes: No sclera icterus, conjunctiva clear ENT: Dry mucous membranes CV: RRR, no murmurs Resp: Lungs CTA BL, no w/r/c GI: Abd soft, non-distended, non-tender, no r/r/g Musc: Full ROM, no deformity Skin: Warm, dry Neuro: Alert, oriented, grossly intact, sensation intact Psych: Cooperative, appropriate mood and affect PFS PFS Medical History Anxiety Liver fibrosis Cirrhosis of liver Tourette disease Seizure Home Medications ???Medication ???Instructions ???Recorded ???Last Taken ???Type clonidine HCl 0.1 mg tablet 0.1 mg PO BID 11/29/24 Unknown His tory hydroxyzine HCl 25 mg tablet 25 mg PO QHS PRN sleep 11/29/24 Un known History melatonin 10 mg capsule 20 mg PO QHS 11/29/24 Unknown Hist ory methadone 10 mg tablet 140 mg PO DAILY 11/29/24 Unknown H istory metoprolol succinate PO DAILY 11/29/24 Unknown History pantoprazole PO BID 11/29/24 Unknown History venlafaxine 75 mg tablet 75 mg PO DAILY 11/29/24 Unknown Hi story Allergy/AdvReac Type Severity Reaction Status Date / Time No Known Allergies Allergy Verified 11/29/24 19:54 Social History Smoking Status: Current every day smoker tobacco type: cigarettes EXAM Physical Exam Const Vital Signs: 11/29/24 19:54 11/29/24 21:21 11/29/24 21:21 Temperature 97.2 F L 97.2 F L Temperature Source Temporal Oral Pulse Rate 92 72 70 Respiratory Rate 24 H 16 16 Blood Pressure 125/100 H 145/90 H 145/90 H Blood Pressure Mean 108 108 108 Blood Pressure Source Monitor Blood Pressure Position Semi-Fowlers Blood Pressure Location Right Arm Pulse Ox 100 99 99 Oxygen Delivery Method Room Air Room Air Room Air 11/29/24 22:00 11/29/24 22:46 11/29/24 23:00 Temperature 98.7 F Temperature Source Pulse Rate 78 77 77 Respiratory Rate 16 16 18 Blood Pressure 134/90 H 133/66 H 122/77 H Blood Pressure Mean 104 88 92 Blood Pressure Source Blood Pressure Position Blood Pressure Location Pulse Ox 98 98 97 Oxygen Delivery Method Room Air Room Air 11/30/24 00:00 Temperature Temperature Source Pulse Rate 81 Respiratory Rate 16 Blood Pressure 118/74 Blood Pressure Mean 88 Blood Pressure Source Blood Pressure Position Blood Pressure Location Pulse Ox 98 Oxygen Delivery Method Room Air MDM MDM MDM Narrative Medical decision making narrative: 39-year-old male with past medical history of liver cirrhosis secondary to alcohol abuse, anxiety presents for evaluation of alcohol withdrawal and requesting detox. Patient states that he missed multiple doses of his mental health medications. This caused frequent panic attacks in which he started drinking alcohol. He states he has drank for 4 days straight about a half a gallon of vodka a day. He last drank at 1730 tonight. He endorses some nausea and anxiety. He would like detox. Differential diagnosis includes but is not limited to alcohol intoxication, alcohol withdrawal, requesting alcohol detox, dehydration, EMELY, cirrhosis. NS bolus, Ativan, Zofran ordered for symptoms. Laboratory workup ordered. CBC without leukocytosis. Patient has anemia with hemoglobin of 12.5. Thrombocytopenia with platelet count of 141. INR 1.6. CMP with AST transaminitis at 109. Secondary to his alcohol abuse. No EMELY. Drug screen positive for methadone and THC. Patient is on methadone outpatient. Alcohol level 33.5. Patient will warrant admission for detox. Patient discussed with the hospitalist who accepted admission. Patient was updated on the (more content not included)... Normal [facility] Eosinophil percentageOrdered By: Amilcar Dumont on 11-29-2024 Eosinophils/100 WBC (Bld) 0.5 % 0-5 [facility] Erythrocyte distribution wid th ratioOrdered By: [facility] on 11-29-2024 Erythrocyte distribution width (RBC) [Ratio] 14.1 % 11.6-14.6 [facility] Erythrocyte distribution wid th standard deviationOrdered By: [facility] Hospital[facility]ian Talbert on 11-29-2024 Erythrocyte distribution width (RBC) [Ratio] 45.7 fl High 35.1-43.9 [facility] Glomerular filtration rate ( GFR) estimation/1.73 sq m using serum, plasma, or whole bOrdered By: Amilcarzahra Dumont on 11-29-2024 GFR/1.73 sq M.predicted among non-blacks MDRD (S/P/Bld) [Vol rate/Area] 130 mL/min/{1.73_m2} >60 [facility] Comment on above: mL/min/1.73m2 CKD-EP I Creatinine Equation (2020) Hematocrit Auto (Bld) [Volum e fraction]Ordered By: Amilcar Dumont on 11-29-2024 Hematocrit (Bld) [Volume fraction] 37.0 % Low 40-54 [facility] Hemoglobin measurementOrdere d By: Amilcar Dumont on 11-29-2024 Hemoglobin (Bld) [Mass/Vol] 12.5 g/dL Low 13.0-16.5 [facility] Immature granulocytes/100 WB C Auto (Bld)Ordered By: Amilcar Dumont on 11-29-2024 Immature granulocytes/100 WBC (Bld) 0.200 % 0.0-0.9 [facility] Comment on above: IG% - Immature Granu locytes (promyelocytes, myelocytes and metamyelocytes) > 1% indicates that a LEFT SHIFT is Present. International normalized rat io (INR) calculationOrdered By: Amilcar Dumont on 11-29-2024 INR Coag (Bld) [Relative time] 1.6 {INR} [facility] - Chemistry and C hemistry - challengeOrdered By: Amilcar Dumont on 11-29-2024 AST [Catalytic activity/Vol] 109 U/L High <38 [facility] MCV (mean corpuscular volume ) determinationOrdered By: Amilcar Dumont on 11-29-2024 MCV (RBC) [Entitic vol] 89.4 fL 80-[address] [facility] Mean corpuscular hemoglobin (MCH) determinationOrdered By: Amilcar Dumont on 11-29-2024 MCH (RBC) [Entitic mass] 30.2 pg 27.0-32.0 [facility] Mean corpuscular hemoglobin concentration (MCHC) determinationOrdered By: Amilcar Dumont on 11-29-2024 MCHC (RBC) [Mass/Vol] 33.8 g/dL 32-36 [facility] Mean platelet volume determi nationOrdered By: Amilcar Dumont on 11-29-2024 Platelet mean volume (Bld) [Entitic vol] 10.1 fL 6.2-12.0 [facility] Monocyte percentageOrdered B y: Amilcar Dumont on 11-29-2024 Monocytes/100 WBC (Bld) 7.5 % 0-[address] [facility] Neutrophil percentageOrdered By: Amilcar Dumont on 11-29-2024 Neutrophils/100 WBC (Bld) 63.3 % 47-70 [facility] No Panel InformationOrdered By: Amilcar Dumont on 11-29-2024 Urine Buprenorphine Qualitative Negative < 200 ng/mL [facility] Urine Oxycodone Screen Negative < 100 ng/mL [facility] Nucleated red blood cell per centageOrdered By: Amilcar Dumont on 11-29-2024 Nucleated RBC/100 WBC (Bld) [Ratio] 0 % 0-5 [facility] Platelet countOrdered By: Edu Dumont on 11-29-2024 Platelets (Bld) [#/Vol] 141 10*3/uL Low 150-450 [facility] Potassium measurement (mass/ volume)Ordered By: Amilcar Dumont on 11-29-2024 Potassium (Unsp spec) [Mass/Vol] 4.7 mmol/L 3.3-5.1 [facility] Prothrombin Time w/INRon INR Coag (PPP) [Relative time] 1.6 {INR} Normal [facility] Comment on above: Performed By: #### L 300.3900 #### [facility] [address] [place], [place], [id number] ([id number]) PT Coag (PPP) [Time] 19.7 s High 11.7-14.9 [facility] Comment on above: Performed By: #### L 300.3900 #### [facility] [address] [place], [place], [id number] Prothrombin timeOrdered By: Amilcar Dumont on 11-29-2024 PT Coag (PPP) [Time] 19.7 s High 11.7-14.9 [facility] Quantitative urine opiates m easurementOrdered By: Amilcar Dumont on 11-29-2024 Opiates Ql (U) Negative < 300 ng/mL [facility] RBC Auto (Bld) [#/Vol]Ordere d By: Amilcar Dumont on 11-29-2024 RBC (Bld) [#/Vol] 4.14 10*6/uL Low 4.6-6.2 [facility] Screening urine fentanyl liza surementOrdered By: Amilcar Dumont on 11-29-2024 fentaNYL Screen Ql (U) Negative <5 ng/mL [facility] Comment on above: CONFIRMATORY TESTING FOR ALL POSITIVE URINE DRUG SCREENRESULTS WILL ONLY BE SENT OUT UPON PHYSICIAN ORDER. [facility] Urine Drug Screen methods provide only preliminaryanalytical test results. A more specific alternate chemicalmethod must be used in order to obtain a confirmedanalytical result. Gas chromatography/mass spectrometery(GC/MS) is the preferred confirmatory method. Clinicalconsideration and professional judgement should be appliedto any drug of abuse test result, particularly whenpreliminary positive results are used. Urine TCA testing must be ordered separately. Use test mnemonic: [facility] Serum creatinine measurement (mass/volume)Ordered By: Amilcar Dumont on 11-29-2024 Creatinine [Mass/Vol] 0.55 mg/dL Low 0.70-1.20 [facility] Serum globulin measurementOr dered By: Amilcar Dumont on 11-29-2024 Globulin (S) [Mass/Vol] 4.3 g/dL High 2.2-4.[address] [facility] Serum glucose measurement (m ass/volume)Ordered By: Amilcar Dumont on 11-29-2024 Glucose [Mass/Vol] 87 mg/dL 70-99 [facility] Serum or plasma alanine martinez otransferase (ALT) measurementOrdered By: Amilcar Dumont on 11-29-2024 ALT [Catalytic activity/Vol] 33 U/L <47 [facility] Serum or plasma albumin valerie urement (mass/volume)Ordered By: Amilcar Talbert on 11-29-2024 Albumin [Mass/Vol] 3.8 g/dL 3.5-5.0 [facility] Serum or plasma albumin/glob ulin mass ratioOrdered By: Amilcar Dumont on 11-29-2024 Albumin/Globulin [Mass ratio] 0.9 {ratio} 0.9-2.4 [facility] Serum or plasma alkaline juliocesar sphatase measurementOrdered By: Amilcar Dumont on 11-29-2024 ALP [Catalytic activity/Vol] 261 U/L High 40-129 [facility] Serum or plasma calcium valerie urement (mass/volume)Ordered By: Amilcar Talbert on 11-29-2024 Calcium [Mass/Vol] 9.7 mg/dL 7.6-11.0 [facility] Serum or plasma ethanol valerie urement (mass/volume)Ordered By: Amilcar Talbert on 11-29-2024 Ethanol [Mass/Vol] 33.5 mg/dL High <10.1 [facility] Comment on above: This test is for med ical purposes only. The legal definition of intoxication varies according to local law. Serum or plasma urea nitroge n measurement (mass/volume)Ordered By: Amilcar Dumont on 11-29-2024 Urea nitrogen [Mass/Vol] 2 mg/dL Low 4-19 [facility] Sodium levelOrdered By: Kenneth Dumont on 11-29-2024 Sodium [Moles/Vol] 138 mmol/L 133-145 [facility] Total proteinOrdered By: Christiano Dumont on 11-29-2024 Protein [Mass/Vol] 8.1 g/dL 5.9-8.4 [facility] Urine Drug Screen (VISTA)on 11-29-2024 AMPHETAMINES Negative Normal <1000 ng/mL [facility] Comment on above: Performed By: #### L 505.5000, L500.4050, L501.9100, L100.0100 #### [facility] [address] [place], [place], [facility] BARBITIURATES Negative Normal < 200 ng/mL [facility] Comment on above: Performed By: #### L 505.5000, L500.4050, L501.9100, L100.0100 #### [facility] [address] [facility] [facility] [address] BENZODIAZIPINE Negative Normal < 200 ng/mL [facility] Comment on above: Performed By: #### L 505.5000, L500.4050, L501.9100, L100.0100 #### [facility] [address] [place], [address] BUP Ur Drug Scr Negative Normal < 200 ng/mL [facility] Comment on above: Performed By: #### L 505.5000, L500.4050, L501.9100, L100.0100 #### [facility] [address] [place], [address] COCAINE Negative Normal < 300 ng/mL [facility] Comment on above: Performed By: #### L 505.5000, L500.4050, L501.9100, L100.0100 #### [facility] [address] [place], [address] Fentanyl Negative Normal <5 ng/mL [facility] Comment on above: Result Comment: CONF IRMATORY TESTING FOR ALL POSITIVE URINE DRUG SCREEN RESULTS WILL ONLY BE SENT OUT UPON PHYSICIAN ORDER. [employer] Urine Drug Screen methods provide only preliminary analytical test results. A more specific alternate chemical method must be used in order to obtain a confirmed analytical result. Gas chromatography/mass spectrometery (GC/MS) is the preferred confirmatory method. Clinical consideration and professional judgement should be applied to any drug of abuse test result, particularly when preliminary positive results are used. Urine TCA testing must be ordered separately. Use test mnemonic: [facility] Performed By: #### L 505.5000, L500.4050, L501.9100, L100.0100 #### [facility] [address] [place], [address] METHADONE Positive Normal < 300 ng/mL [facility] Comment on above: Result Comment: If c onfirmation testing is needed, a separate order will be required to send out testing to the reference laboratory. Performed By: #### L 505.5000, L500.4050, L501.9100, L100.0100 #### [facility] [address] [place], [address] OPIATES Negative Normal < 300 ng/mL [facility] Comment on above: Performed By: #### L 505.5000, L500.4050, L501.9100, L100.0100 #### [facility] [address] [place], [address] OXYCODONE Negative Normal < 100 ng/mL [facility] Comment on above: Performed By: #### L 505.5000, L500.4050, L501.9100, L100.0100 #### [facility] [address] [place], [address] PCP Negative Normal < 25 ng/mL [facility] Comment on above: Performed By: #### L 505.5000, L500.4050, L501.9100, L100.0100 #### [facility] [address] [place], [address] THC Positive Normal < 50 ng/mL [facility] Comment on above: Result Comment: If c onfirmation testing is needed, a separate order will be required to send out testing to the reference laboratory. Performed By: #### L 505.5000, L500.4050, L501.9100, L100.0100 #### [facility] [address] [place], [address] Urine benzodiazepine levelOr dered By: Amilcar Dumont on 11-29-2024 Benzodiazepines Ql (U) Negative < 200 ng/mL [facility] Urine cocaine levelOrdered B y: Amilcar Dumont on 11-29-2024 Cocaine Ql (U) Negative < 300 ng/mL [facility] Urine [id number] abinol (THC) measurementOrdered By: Amilcar Talbert on 11-29-2024 Cannabinoids Screen Ql (U) Positive < 50 ng/mL [facility] Comment on above: If confirmation test ing is needed, a separate order will be required to send out testing to the reference laboratory. Urine phencyclidine (PCP) de tectionOrdered By: Amilcar Dumont on 11-29-2024 Phencyclidine Ql (U) Negative < 25 ng/mL [facility] White blood cell (WBC) count Ordered By: Amilcar Dumont on 11-29-2024 WBC (Bld) [#/Vol] 5.8 10*3/uL 4.4-11.0 [facility] 36on 11-24-2024 36 Normal [facility] 36on 11-15-2024 36 I called patient to relay new order information, no answer, left voicemail to let him know new bloodwork ordered, advised to call office if he does have questions. [facility] Progress Noteon 11-15-2024 Progress Note [facility] Progress Note I saw and evaluated the patient, participating in the erickson portions of the service. I reviewed the resident?s note. I agree with the resident?s findings and plan. Vamshi Moncada, ERVIN [facility] 29on 11-10-2024 29 Addended by: GUILLERMO MERRILL on: 11/10/2024 03:31 PM Modules accepted: Orders [facility] Progress Noteon 11-10-2024 Progress Note Hep A positive. Most likely from previous resolved infection or immunity. But will check to see if recent infection. [facility] 36on 11-09-2024 36 Called back patient and spoke with him. Patient is concerned about abnormal hepatitis A result and would like to know if any additional testing needs done or what to do. Advised will route to provider for review [facility] 36on 11-08-2024 36 Pt called and lvm fo r office frustrated as he keeps missing our calls and can never get a hold of our office back. Thanks [facility] 36 Called patient, no answer, left voicemail relaying results. Provided office number if patient has any questions or concerns. [facility] 36 [facility] 36on 11-07-2024 36 Ok from anesthesia standpoint per wanda loyola [facility] AFP Tumor Markeron AFP.tumor marker [Mass/Vol] 4.4 ng/mL [facility] - 6.1 ng/mL [facility] Comment on above: This test was performed using the Lina Clarendon chemiluminescent method. Values obtained from different assay methods cannot be used interchangeably. AFP levels, regardless of value, should not be interpreted as absolute evidence of the presence or absence of disease. Ceruloplasminon 11-07-2024 Ceruloplasmin [Mass/Vol] 23 mg/dL 14 - 30 mg/dL [facility] No Panel Informationon 11-07 [facility] Progress Noteon 11-07-2024 Progress Note INR is slightly increased, but improved since last time. Normal [facility] Progress Note Liver numbers are go ing down. AFP tumor marker is negative. Normal [facility] Comprehensive metabolic 1998 panelon 11-05-2024 Albumin [Mass/Vol] 3.6 g/dL 3.6 - 5.1 g/dL [facility] Albumin/Globulin [Mass ratio] 1 {ratio} [facility] ALP [Catalytic activity/Vol] 147 U/L High 36 - 130 U/L [facility] ALT [Catalytic activity/Vol] 20 U/L 9 - 46 U/L [facility] AST [Catalytic activity/Vol] 58 U/L High 10 - 40 U/L [facility] Bilirubin [Mass/Vol] 1.1 mg/dL 0.2 - 1 .2 mg/dL [facility] Calcium [Mass/Vol] 8.9 mg/dL 8.6 - 10. 3 mg/dL [facility] Chloride [Moles/Vol] 103 mmol/L 98 - 11 0 mmol/L [facility] CO2 [Moles/Vol] 30 mmol/L 20 - 32 mmol/L [facility] Creatinine [Mass/Vol] 0.55 mg/dL Low 0.60 - 1.26 mg/dL [facility] GFR/1.73 sq M.predicted among non-blacks MDRD (S/P/Bld) [Vol rate/Area] 130 mL/min/{1.73_m2} > OR = 60 mL/min/1.73m 2 [facility] Globulin (S) [Mass/Vol] 3.5 g/dL [facility] Glucose [Mass/Vol] 101 mg/dL High 65 - 99 mg/dL [facility] Comment on above: Fasting reference interval For someone without known diabetes, a glucose value between 100 and 125 mg/dL is consistent with prediabetes and should be confirmed with a follow-up test. Potassium [Moles/Vol] 4.5 mmol/L 3.5 - 5.3 mmol/L [facility] Protein [Mass/Vol] 7.1 g/dL 6.1 - 8.1 g/dL [facility] Sodium [Moles/Vol] 139 mmol/L 135 - 146 mmol/L [facility] Urea nitrogen [Mass/Vol] 5 mg/dL Low 7 - 25 mg/dL [facility] Urea nitrogen/Creatinine [Mass ratio] 9 mg/mg [facility] Hepatitis A Antibody, Totalo n 11-05-2024 HAV Ab IA Ql (S) Reactive Abnormal NON-REACTIVE [facility] Comment on above: For additional information, please refer to [email or web address]/faq/[email or web address] (This link is being provided for informational/ educational purposes only.) Interpretation and review of laboratory results Abnormal [facility] No Panel Informationon 11-05 Interpretation and review of laboratory results Abnormal [facility] PT Coag (Bld) [Time]on 11-05 INR Coag (PPP) [Relative time] 1.3 {INR} High [facility] Comment on above: Reference Range 0.9 -1.1 Moderate-intensity Warfarin Therapy 2.0-3.0 Higher-intensity Warfarin Therapy 3.0-4.0 PT Coag (PPP) [Time] 13 s High [facility] Comment on above: For additional infor mation, please refer to [email or web address] (This link is being provided for informational/ educational purposes only.) 36on 11-01-2024 36 Normal [facility] 36 Normal [facility] 36 Normal [facility] 37on 11-01-2024 37 Normal [facility] Progress Noteon 11-01-2024 Progress Note Normal [facility] 36on 10-28-2024 36 Normal [facility] 36on 10-18-2024 36 Pt has an appointmen t on 11/15 will schedule at that time. Normal [facility] 36on 10-17-2024 36 LOWER PARTIAL, FULL UPPER AND RUBIN REMOVAL APPROVED. PLEASE SCHEDULE. Normal [facility] COMPREHENSIVE METABOLIC PANE Rylan 10-12-2024 Albumin [Mass/Vol] 3.0 g/dL Low 3.5-5.0 [facility] Comment on above: Performed By: #### L AB17 ####Lathe Turner: JUDITH MARKHAM ([id number])[facility] ([facility])[address] [place] [address] [place] ALP [Catalytic activity/Vol] 224 U/L High 40-150 [facility] Comment on above: Performed By: #### L AB17 ####Lathe Turner: JUDITH MARKHAM ([id number])[facility] ([facility])[address] ALT [Catalytic activity/Vol] 34 U/L Normal <40 [facility] Comment on above: Performed By: #### L AB17 ####Lathe Turner: JUDITH MARKHAM ([id number])[facility] ([facility])[address] [place] [address] Anion gap [Moles/Vol] 7 mmol/L Normal 3-13 [facility] Comment on above: Performed By: #### L AB17 ####Lathe Turner: JUDITH MARKHAM ([id number])[facility] ([facility])[address] [place] [address] AST [Catalytic activity/Vol] 122 U/L High <34 [facility] Comment on above: Performed By: #### L AB17 ####Lathe Turner: JUDITH MARKHAM ([id number])[facility] ([facility])[address] [place] [address] Bilirubin [Mass/Vol] 1.7 mg/dL High <1.2 [facility] Comment on above: Performed By: #### L AB17 ####Lathe Turner: JUDITH MARKHAM ([id number])[facility])[address] [place] [address] Calcium [Mass/Vol] 9.2 mg/dL Normal 8.4-10.2 [facility] Comment on above: Performed By: #### L AB17 ####Lathe Turner: JUDITH MARKHAM ([id number])[facility])[address] [place] [address] [place] Chloride [Moles/Vol] 100 mmol/L Normal 98-107 [facility] Comment on above: Performed By: #### L AB17 ####Lathe Turner: JUDITH MARKHAM ([id number])[facility] ([facility])[address] [place] [address] [place] CO2 [Moles/Vol] 28 mmol/L Normal 22-29 [facility] Comment on above: Performed By: #### L AB17 ####Lathe Turner: JUDITH MARKHAM ([id number])[facility] ([facility])[address] [place] [address] Creatinine [Mass/Vol] 0.64 mg/dL Low 0.72-1.25 [facility] Comment on above: Performed By: #### L AB17 ####Lathe Turner: JUDITH MARKHAM ([id number])[facility])[address] [place] [address] GLOMERULAR FILTRATION RATE ML/MIN/1.73 SQ M.PREDICTED >90.0 Normal >60.0 [facility] Comment on above: Result Comment: Calc ulation based on the Chronic Kidney Disease Epidemiology Collaboration (CKD-EPI) equation refit without adjustment for race Performed By: #### L AB17 ####Lathe Turner: JUDITH MARKHAM ([id number])[facility] ([facility])[address] [place] [address] [place] Glucose [Mass/Vol] 77 mg/dL Normal 74-100 [facility] Comment on above: Performed By: #### L AB17 ####Lathe Turner: JUDITH MARKHAM ([id number])[facility])[address] [place] [address] [place] Potassium [Moles/Vol] 4.1 mmol/L Normal 3.5-5.1 [facility] Comment on above: Result Comment: [facility] potassium values may be up to 0.5 mmol/L lower than serum values. Performed By: #### L AB17 ####Lathe Turner: JUDITH MARKHAM ([id number])[facility] ([facility])[address] [place] [address] Protein [Mass/Vol] 7.4 g/dL Normal 6.4-8.3 [facility] Comment on above: Performed By: #### L AB17 ####Lathe Turner: JUDITH MARKHAM ([id number])[facility] ([facility])[address] [place] [address] Sodium [Moles/Vol] 135 mmol/L Low 136-145 [facility] Comment on above: Performed By: #### L AB17 ####Lathe Turner: JUDITH MARKHAM ([id number])[facility] ([facility])[address] [place] [address] Urea nitrogen [Mass/Vol] 5 mg/dL Low 8-21 [facility] Comment on above: Performed By: #### L AB17 ####Lathe Turner: JUDITH KENTONTu ([id number])[facility] ([facility])[address] [place] [address] Progress Noteon 10-12-2024 Progress Note Will review at scheduled follow up. [facility] Progress Noteon 10-04-2024 Progress Note [facility] 29on 10-03-2024 29 Addended by: GUILLERMO MERRILL on: 10/03/2024 05:01 PM Modules accepted: Orders [facility] 36on 10-03-2024 36 Pt lvm requesting callback. Spoke with Pt he is requesting call to go over Fibroscan results prior to his appt. Pt is very worried about his results. Normal [facility] 36 Patient called and l for office trying to get results of his liver test. Upon review Guillermo had advised patient results will be gone over in November during his OV. Thanks [facility] Progress Noteon 10-03-2024 Progress Note Call Roro. Went over fibroscan. INR ordered. Will also order CMP. Continue with appointment 11/01/2024. Normal [facility] [id number] (BKR QUE ST)on 2024 [facility] ALPHA 1 ANTITRYPSIN 253 mg/dL High 83-199 [facility] Comment on above: Result Comment: Test Performed by [employer],[facility],[address] [place] [id number] Merida M.D., Ph.D., Director of [phone], CLIA [id number] Performed By: #### L [id number], [id number], [id number] ####[facility] (AMDBEAKER)[address] [place], [place] REMINGTON (ANTINUCLEAR ANTIBODIES) on 2024 REMINGTON PATTERN Normal [facility] Comment on above: Performed By: #### L AB147, [id number] ####Lathe Turner: JUDITH MARKHAM ([id number])[facility] ([facility])[address] [place] [address] [place] REMINGTON TITER <1:80 Normal <1:80 [facility] Comment on above: Result Comment: PIEDAD Echeverria COMMENTS:TESTED BY INDIRECT IMMUNOFLUORESCENCE ASSAY (IFA) Performed By: #### L AB147, [id number] ####Lathe Turner: JUDITH MARKHAM ([id number])[facility] ([facility])[address] [place] [address] [place] ANTIMITOCHONDRIAL ANTIBODYon 2024 [facility] MITOCHONDRIAL AB SCREEN Negative Normal Negative [facility] Comment on above: Result Comment: Test Performed by Mana Au,[facility],[address] [place] [id number] Merida M.D., Ph.D., Director of [phone], CLIA [id number] Performed By: #### L AB810, [id number], [id number] ####[facility] (AMDBEAK[facility])[address] [place], [place] CELIAC PANELon 2024 GLIADIN IGA ANTIBODIES 3.1 U/ml Normal <15.0 [facility] Comment on above: Performed By: #### L AB147, [id number] ####Lathe Turner: JUDITH MARKHAM ([id number])[facility])[address] [place] [address] [place] GLIADIN IGG SERUM 0.8 U/ml Normal <15.0 [facility] Comment on above: Result Comment: PIEDAD Echeverria COMMENTS:TTG Interpretive Information:Results of 15 Units/mL or greater = POSITIVEResults Less than 15 Units/mL = NEGATIVEDeam Gliadin Peptide Interpretive Information:Results of 15 Units/mL or greater = POSITIVEResults Less than 15 Units/mL = NEGATIVE Performed By: #### L AB147, [id number] ####Lathe Turner: JUDITH MARKHAM ([id number])[facility])[address] [place] [address] TISSUE TRANSGLUTAMINASE, IGA <0.5 Normal <15.0 [facility] Comment on above: Performed By: #### L AB147, [id number] ####Lathe Turner: JUDITH MARKHAM ([id number])[facility])[address] [place] [address] TISSUE TRANSGLUTAMINASE, IGG 1.1 U/mL Normal <15.0 [facility] Comment on above: Performed By: #### L AB147, [id number] ####Lathe Turner: JUDITH MARKHAM ([id number])[facility])[address] [place] [address] FERRITINon 2024 Ferritin [Mass/Vol] 108 ng/mL Normal 22-275 [facility] Comment on above: Result Comment: PIEDAD Echeverria COMMENTS:Ferritin levels below 10 ng/mL have been reported as indicative of iron deficiency anemia. Performed By: #### L AB68 ####Lathe Turner: JUDITH MARKHAM ([id number])[address] Ferritin [Mass/Vol]on 2024 Interpretation and review of laboratory results Normal [facility] Ferritin levels belo w 10 ng/mL have been reported as indicative of iron deficiency anemia. [facility] HBV surface Ab IA Qnon 09-30 Interpretation: <8.0 Non-Reactive 8.0-11.9 Equivocal >= 12.0 Ab Detected Note: If an equivocal result is interpreted, an antibody status is unable to be determined. Collect new specimen if clinically indicated. [facility] HBV surface Ag IA Qlon 09-30 Interpretation and review of laboratory results Normal [facility] HCV Ab IA Qlon 2024 Interpretation and review of laboratory results Normal [facility] HEPATITIS B CORE ANTIBODY, T OTAL - BKR QUESTon 2024 [facility] HEPATITIS B CORE AB TOTAL Non-Reactive Normal Nonreactive [facility] Comment on above: Result Comment: Test Performed by Mana Au,[facility],[address] [place] [id number] Merida M.D., Ph.D., Director of [phone], [facility] [id number] Performed By: #### L [id number] ####[facility] (AMDBEAKER)[address] [place] [address] [place] HEPATITIS B SURFACE ANTIBODY on 2024 HEPATITIS B VIRUS SURFACE AB <8.0 Normal [facility] Comment on above: Result Comment: ORDE R COMMENTS:Interpretation:<8.0 Non-Reactive8.0-11.9 Equivocal>= 12.0 Ab DetectedNote: If an equivocal result is interpreted, an antibody status is unable to be determined. Collect new specimen if clinically indicated. Performed By: #### L [id number], [id number], [id number] ####Lathe Turner: JUDITH MARKHAM ([id number])[address] HEPATITIS B SURFACE ANTIGENo n 2024 HEPATITIS B VIRUS SURFACE AG Not detected Normal Not Detected [facility] Comment on above: Performed By: #### L AB868, [id number], [id number] ####Lathe Turner: JUDITH MARKHAM ([id number])[facility])[address] [place] [address] HEPATITIS C ANTIBODYon 09-30 HCV Ab IA Ql Not detected Normal Not Detected [facility] Comment on above: Result Comment: Lynda ents with DETECTED Hepatitis C Ab results should have a new specimen submitted for supplemental testing with a Hepatitis C Quantitative RNA assay (viral load), if clinically indicated. Performed By: #### L [id number], [id number], [id number] ####Lathe Turner: JUDITH MARKHAM ([id number])[facility])[address] [place] [address] LIVER-KIDNEY MICROSOME 1 ABo n 2024 LIVER-KID MICROSOME-1 AB, IGG BY BERENICE 2.2 U Normal 0.0-24.9 [facility] Comment on above: Result Comment: REFE RENCE INTERVAL: Liver-Kidney Microsome-1 Antibody, IgG by BERENICE 0.0 - 20.0 U .............. Negative 20.1 - 24.9 U ............. Equivocal 25.0 U or Greater ......... PositiveA positive result indicates the presence of IgG antibodies torecombinant human P450 2D6 and suggests the possibility ofautoimmune hepatitis, type 2. A negative LKM-1 does not rule outthe presence of autoimmune hepatitis, type 2.Performed By: [employer] [place], [place] [address]Ungybyrhtn Director: Guillermo Burroughs MD, PhDCLIA Number: [id number] Performed By: #### L [id number] ####[facility] ([facility])[address] [place] [address] [place] Laboratory - Chemistry and C hemistry - challengeon 2024 Ferritin [Mass/Vol] 108 ng/mL 22 - 275 ng/mL [facility] Laboratory - Coagulationon 0 2024 PT Coag (Bld) [Time] 14.6 s High 9.0 - 12.0 s [facility] Laboratory - Microbiology an d Antimicrobial susceptibilityon 2024 HBV surface Ab IA Qn mIU/mL [facility] HBV surface Ag IA Ql Not detected Not Detected [facility] HCV Ab IA Ql Not detected Not Detected [facility] Comment on above: Patients with DETECT ED Hepatitis C Ab results should have a new specimen submitted for supplemental testing with a Hepatitis C Quantitative RNA assay (viral load), if clinically indicated. No Panel Informationon 09-30 [facility] Considering the patient's history of alcohol and substance abuse BMI: 25 ETOH use: noted that he quit 04/2024 Hep B & C status neg LFT's: elevated 1). 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 Liver Fat Estimation: Patient had median Controlled Attenuation Parameter (CAP score) of 324 decibels/m (dB/m) consistent with Liver Steatosis Stage S 3- severe steatosis/advanced fatty infiltration over 67% of liver Interpretation: The CAP score is measured in decibels per meter (Db/m). It ranges from 100 to 400 Db/m. The table below shows ranges of CAP scores and the matching steatosis grade and amount of fatty change. Cap Score Steatosis Grade Amount of Liver with Fatty Change 238-260 dB/m S1 11 to 33% 260 to 290 Db/m S2 34 to 66% Higher than 290 Db/M S3 67% or more Your fibrosis result is a measurement of the amount of scarring in your liver. FibroScan measures scarring by measuring the stiffness of your liver. The fibrosis result is measured in kilopascals (kPa) It's normally between 2 and 6 kPa. The highest possible result is 75 kPa. Many people with liver disease(s) have a result that's higher than the normal range. Your healthcare provider will use your FibroScan fibrosis result and your medical history to determine your fibrosis score. Fibrosis score F0 to F1: No liver scarring or mild liver scarring Fibrosis score F2: Moderate liver scarring Fibrosis score F3: Severe liver scarring Fibrosis score F4: Advanced liver scarring (cirrhosis) Using your FibroScan fibrosis result to estimate your fibrosis score The table below shows liver diseases, ranges of fibrosis results, and the matching fibrosis score. The ranges of fibrosis results in the table are estimates. This means that your actual fibrosis score (the score that your healthcare provider tells you) may not match the fibrosis score in the table. If you have more than one liver disease, you may not be able to use the table. To use the table, find the liver disease that you have on the left side of the table. Read across the row from left to right until you find the range that includes your fibrosis result. Then, look at the top of that column to see the fibrosis score. F0 to F1 F2 F3 F4 Hepatitis B 2 to 7 kPa 8 to 9 kPa 8 to 11kPa 18 kPa or higher Hepatitis C 2 to 7 kPa 8 to 9 kPa 9 to 14kPa 14 kPa or higher HIV/HCV Coinfection 2 to 7 kPa 7 to 11 kPa 11 to 14kPa 14 kPa or higher Non-alcoholic Fatty Liver 2 to 7 kPa 7.5 to 10 kPa 10 to 14kPa 14 kPa or higher Disease (NAFLD OR QUEZADA) Alcohol Related Disease 2 to 7 kPa 7.5 to 11 kPa 11 to 19kPa 19 kPa or higher Your fibrosis result may be over-estimated (your liver may have less scarring than what your fibrosis result says) if you have: Liver inflammation. This can be caused by a recent liver illness or drinking alcohol. Benign (not cancerous) or cancerous tumors in your liver. Liver congestion (when your liver is too full of blood or other fluids). This is usually caused by heart failure. Your FibroScan results may also be less accurate if you have: A body mass index (BMI) higher than 30 (obesity) A build-up of fluid in your abdomen (ascites) Too little bile flowing out of your liver (biliary obstruction) [facility] Table formatting fro m the original result was not included. Imaging Result: [facility] Infectious Disease Patient: Gerson De La Fuente : 1985 Height: Ht Readings from Last 1 Encounters: 09/30/24 6' 1 (1.854 m) Weight: Wt Readings from Last 1 Encounters: 09/30/24 191 lb (86.6 kg) BMI: BMI Readings from Last 1 Encounters: 09/30/24 25.20 kg/m Procedure: Patient referred by SEEMA HARTLEY for open-access FibroScan study for diagnosis of ELEVATED LIVER ENZYMES Patient identified x 2 and verified the following: age 18 or older-yes Fasting >3 hours-yes FibroScan study completed using Medium probe and 13 consecutive valid measurements obtained. Patient tolerated procedure well. Results: Median=75 kPa IQR/med=0 % HMG=708 dB/m Indu Mota RN, 2024 1:24 PM Diagnosis/Problems: Diagnosis Plan 1. Elevated liver enzymes Fibroscan 2 hx of alcohol abuse [facility] PROTHROMBIN TIMEon INR Coag (PPP) [Relative time] 1.4 {INR} High 0.9-1.1 [facility] Comment on above: Result Comment: Mason mmended Anticoagulant Therapy: SEE BELOW----- INR of 2.0 - 3.0 : - Prophylaxis of Venous Thrombosis (high-risk surgery) - Treatment of Venous Thrombosis - Treatment of Pulmonary Embolism (Includes tissue heart valves, Acute Myocardial Infarction to prevent systemic embolism, Valvular Heart Disease, and Atrial Fibrillation)----- INR of 2.5 - 3.5 : - Mechanical Prosthetic Valves (high risk) - If oral anticoagulant therapy is used to prevent Myocardial Infarction Performed By: #### L [id number] ####Lathe Turner: JUDITH MARKHAM ([id number])[facility] ([facility])[address] [place] [address] PT Coag (PPP) [Time] 14.6 s High 9.0-12.0 [facility] Comment on above: Performed By: #### L AB320 ####Lathe Turner: JUDITH MARKHAM ([id number])[facility] ([facility])[address] [place] [address] PT Coag (Bld) [Time]on 09-30 INR Coag (PPP) [Relative time] 1.4 {INR} High 0.9 - 1.1 [facility] Comment on above: Recommended Anticoag ulant Therapy: SEE BELOW ----- INR of 2.0 - 3.0 : - Prophylaxis of Venous Thrombosis (high-risk surgery) - Treatment of Venous Thrombosis - Treatment of Pulmonary Embolism (Includes tissue heart valves, Acute Myocardial Infarction to prevent systemic embolism, Valvular Heart Disease, and Atrial Fibrillation) ----- INR of 2.5 - 3.5 : - Mechanical Prosthetic Valves (high risk) - If oral anticoagulant therapy is used to prevent Myocardial Infarction Interpretation and review of laboratory results Abnormal [facility] Progress Noteon 2024 Progress Note Will review Fibrosca n with Roro 11/15/2024. Recommend to complete blood work as ordered by Eric Hartley. Normal [facility] Progress Note Normal [facility] SMOOTH MUSCLE ANTIBODY WITH REFLEX (BKR [facility])on 2024 [facility] SMOOTH MUSCLE AB SCREEN Negative Normal NEGATIVE [facility] Comment on above: Result Comment: Test performed by [facility] [address] [place] [address] [employer]cn[employer] Director: Ankita Oscar MD,PHD,MBATest Reported by Mana Au,[facility],[address] [place], [place] [id number] Merida M.D., Ph.D., Director of [phone], ABDOULAYE [id number] Performed By: #### L AB810, [id number], [id number] ####[facility] (AMDBEAKER)[address] [place] [facility] 08-31-2024 36 Pt has appointment o n 09/07 will schedule at that time. [facility] 08-29-2024 36 UPPER DENTURE APPROV ED. PLEASE SCHEDULE [facility] Progress Noteon 08-24-2024 Progress Note [facility] 08-23-2024 29 Addended by: VANCE LIZAMA on: 2024 02:44 PM Modules accepted: Orders [facility] 29 Addended by: VANCE LIZAMA on: 2024 02:43 PM Modules accepted: Orders [facility] 08-23-2024 37 --blood work to be completed order given --fibroscan faxing order to ID dept --complete alcohol abstinence is recommended --diet recommendations printed for review --follow up in 2 months [facility] Progress Noteon 08-23-2024 Progress Note [facility] 08-22-2024 36 Patient called back in, sooner opening no longer available. Rescheduled for 11/15 at 10:30 and placed on cancellation list. Patient stated this appointment is too far out, will call with next opening we get. [facility] 36 Lmtcb to get 10/05 appointment rescheduled due to the provider not being in the office. [facility] 08-15-2024 36 Pt scheduled [facility] 08-09-2024 36 [facility] 08-05-2024 36 Patient prescribed medication by Last appt 03/30/24 No future appts [facility] 08-04-2024 36 Last visit 03/30/24 Needs scheduled with new PGY3 [facility] 08-01-2024 36 Patient called offic e to r/s OV. Patient was offered next soonest OV, 10/05. Patient agreed, placed on cancellation list for sooner appointment. Thanks [facility] 07-25-2024 36 Called and lvm for patient to contact office to r/s OV due to provider OOO. Sent [facility] message as well for patient to respond to. Thanks [facility] BASIC METABOLIC PANELon 06-10 Anion gap [Moles/Vol] 12 mmol/L Normal 3-13 [facility] Comment on above: Performed By: #### L AB15, [id number] ####Lathe Turner: SHENA GUERIN ([id number])[facility] CAMPUSKyler [place] (SBHLAB)[address] Calcium [Mass/Vol] 9.9 mg/dL Normal 8.4-10.2 [facility] Comment on above: Performed By: #### L AB15, [id number] ####Lathe Turner: SHENA GUERIN ([id number])[facility] CAMPUSA [facility]BCAPRICEN (SBHLAB)[address] Chloride [Moles/Vol] 102 mmol/L Normal 98-107 [facility] Comment on above: Performed By: #### L AB15, [id number] ####Lathe Turner: SHENA GUERIN ([id number])[facility] CAMPUSA BARBERTON (SBHLAB)[address] CO2 [Moles/Vol] 25 mmol/L Normal 22-29 [facility] Comment on above: Performed By: #### L AB15, [id number] ####Lathe Turner: SHENA GUERIN ([id number])[facility]AMPUSA [place] (SBHLAB)[address] Creatinine [Mass/Vol] 0.74 mg/dL Normal 0.72-1.25 [facility] Comment on above: Performed By: #### L AB15, [id number] ####Lathe Turner: SHENA GUERIN ([id number])[facility] (SBHLAB)[address] GLOMERULAR FILTRATION RATE ML/MIN/1.73 SQ M.PREDICTED >90.0 Normal >60.0 [facility] Comment on above: Result Comment: Calc ulation based on the Chronic Kidney Disease Epidemiology Collaboration (CKD-EPI) equation refit without adjustment for race Performed By: #### L AB15, [id number] ####Lathe Turner: SHENA GUERIN ([id number])[facility] (SBHLAB)[address] Glucose [Mass/Vol] 109 mg/dL High 74-100 [facility] Comment on above: Performed By: #### L AB15, [id number] ####Lathe Turner: SHENA GUERIN ([id number])[facility] (SBHLAB)[address] Potassium [Moles/Vol] 4.0 mmol/L Normal 3.5-5.1 [facility] Comment on above: Result Comment: [facility] potassium values may be up to 0.5 mmol/L lower than serum values. Performed By: #### L AB15, [id number] ####Lathe Turner: SHENA GUERIN ([id number])[facility] (SBHLAB)[address] Sodium [Moles/Vol] 139 mmol/L Normal 136-145 [facility] Comment on above: Performed By: #### L AB15, [id number] ####Lathe Turner: SHENA GUERIN ([id number])[facility] (SBHLAB)[address] [place] [address] [place] Urea nitrogen [Mass/Vol] 6 mg/dL Low 8-21 [facility] Comment on above: Performed By: #### L AB15, [id number] ####Lathe Turner: SHENA GUERIN ([id number])[facility] (SBHLAB)[address] [place] [address] [place] C-REACTIVE PROTEINon 025 CRP [Mass/Vol] 45.5 mg/L High <5.0 [facility] Comment on above: Performed By: #### L AB15, [id number] ####Lathe Turner: SHENA GUERIN ([id number])[facility]AMPUSA [facility] (SBHLAB)[address] [place] [address] CBC WITH AUTO DIFFERENTIALon 07-02-2024 Basophils (Bld) [#/Vol] 0.1 10*3/uL Normal 0.0-0.2 [facility] Comment on above: Performed By: #### L AB322, [id number] ####Lathe Turner: SHENA GUERIN ([id number])[facility]AMPUSA [place] (SBHLAB)[address] [place] [address] Basophils/100 WBC (Bld) 0.7 % Normal 0.0-2.0 [facility] Comment on above: Performed By: #### L AB322, [id number] ####Lathe Turner: SHENA GUERIN ([id number])[facility]AMPUSA [facility] (SBHLAB)[address] [place] [address] Eosinophils (Bld) [#/Vol] 0.4 10*3/uL Normal 0.0-0.5 [facility] Comment on above: Performed By: #### L AB322, [id number] ####Lathe Turner: SHENA GUERIN ([id number])[facility] (SBAB)[address] [place] [address] Eosinophils/100 WBC (Bld) 6.0 % Normal 0.0-6.0 [facility] Comment on above: Performed By: #### L AB322, [id number] ####Lathe Turner: SHENA GUERIN ([id number])[facility]AMPUSA [facility] (SBAB)[address] [place] [address] Erythrocyte distribution width (RBC) [Ratio] 13.3 % Normal 11.5-15.0 [facility] Comment on above: Performed By: #### L AB322, [id number] ####Lathe Turner: SHENA GUERIN ([id number])[facility] (SBHLAB)[address] Hematocrit (Bld) [Volume fraction] 39.6 % Low 40.0-52.0 [facility] Comment on above: Performed By: #### L AB322, [id number] ####Lathe Turner: SHENA GUERIN ([id number])[facility] (HLAB)[address] Hemoglobin (Bld) [Mass/Vol] 13.2 g/dL Normal 13.0-18.0 [facility] Comment on above: Performed By: #### L AB322, [id number] ####Lathe Turner: SHENA GUERIN ([id number])[facility] ([facility] IMMATURE GRANS % 0.3 % Normal 0.0-2.0 [facility] Comment on above: Performed By: #### L AB322, [id number] ####Lathe Turner: SHENA GUERIN ([id number])[facility] ([facility])[address] IMMATURE GRANS ABSOLUTE 0.0 10*3/uL Normal <0.1 [facility] Comment on above: Performed By: #### L AB322, [id number] ####Lathe Turner: SHENA GUERIN ([id number])[facility] ([facility])[address] Lymphocytes (Bld) [#/Vol] 2.4 10*3/uL Normal 1.0-4.3 [facility] Comment on above: Performed By: #### L AB322, [id number] ####Lathe Turner: SHENA GUERIN ([id number])[facility] ([facility])[address] [place] [address] [place] Lymphocytes/100 WBC (Bld) 34.8 % Normal 15.0-45.0 [facility] Comment on above: Performed By: #### L AB322, [id number] ####Lathe Turner: SHENA GUERIN ([id number])ANA M NEUMANNN (SBHLAB)[address] MCH (RBC) [Entitic mass] 30.3 pg Normal 26.0-34.0 [facility] Comment on above: Performed By: #### L AB322, [id number] ####Lathe Turner: SHENA GUERIN ([id number])[facility]AMPUSA [place] (SBHLAB)[address] MCHC 33.3 % Normal 30.5-36.0 [facility] Comment on above: Performed By: #### L AB322, [id number] ####Lathe Turner: SHENA GUERIN ([id number])[facility] SOU[facility] CAMPUSKyler NEUMANNN (SBHLAB)[address] MCV (RBC) [Entitic vol] 91.0 fL Normal 77.0-99.0 [facility] Comment on above: Performed By: #### L AB322, [id number] ####Lathe Turner: SHENA GUERIN ([id number])[facility] S[facility] CAMPUSKyler [place] (SBHLAB)[address] Monocytes (Bld) [#/Vol] 0.6 10*3/uL Normal 0.0-0.9 [facility] Comment on above: Performed By: #### L AB322, [id number] ####Lathe Turner: SHENA GUERIN ([id number])[facility] S[facility] CAMPUSKyler [place] (SBHLAB)[address] [place] [address] [place] Monocytes/100 WBC (Bld) 8.5 % Normal 5.0-13.0 [facility] Comment on above: Performed By: #### L AB322, [id number] ####Lathe Turner: SHENA GUERIN ([id number])[facility] CAMPUSA [place] (SBHLAB)[address] NEUTROPHILS ABSOLUTE 3.4 10*3/uL Normal 1.8-7.5 [facility] Comment on above: Performed By: #### L AB322, [id number] ####Lathe Turner: SHENA GUERIN ([id number])[facility]AMPUSA [place] (SBHLAB)[address] Neutrophils/100 WBC (Bld) 49.7 % Normal 38.0-82.0 [facility] Comment on above: Performed By: #### L AB322, [id number] ####Lathe Turner: SHENA GUERIN ([id number])[facility]AMPUSA [place] (SBHLAB)[address] NRBC 0.0 /100 WBCs Normal 0.0-2.0 [facility] Comment on above: Performed By: #### L AB322, [id number] ####Lathe Turner: SHENA GUERIN ([id number])[facility]AMPUSA [place] (SBHLAB)[address] Platelet mean volume (Bld) [Entitic vol] 10.0 fL Normal 9.0-12.7 [facility] Comment on above: Performed By: #### L AB322, [id number] ####Lathe Turner: SHENA GUERIN ([id number])[facility]AMPUSA [place] (SBHLAB)[address] Platelets (Bld) [#/Vol] 295 10*3/uL Normal 140-440 [facility] Comment on above: Performed By: #### L AB322, [id number] ####Lathe Turner: SHENA GUERIN ([id number])[facility] CAMPUSA [place] (SBHLAB)[address] [place] [address] [place] RBC (Bld) [#/Vol] 4.35 10*6/uL Low 4.40-5.90 [facility] Comment on above: Performed By: #### L AB322, [id number] ####Lathe Turner: SHENA GUERIN ([id number])[facility]AMPUSA [place] (SBHLAB)[address] [place] [address] [place] WBC (Bld) [#/Vol] 6.8 10*3/uL Normal 3.6-10.7 [facility] Comment on above: Performed By: #### L AB322, [id number] ####Lathe Turner: SHENA GUERIN ([id number])[facility] S[facility] CAMPUSKyler [place] (SBHLAB)[address] CERVICAL SPINE WO IV CONT RASTon 07-02-2024 CT CERVICAL SPINE WO IV CONTRAST Normal [facility] CT HEAD WO IV CONTRASTon CT HEAD WO IV CONTRAST Normal [facility] ED Nursing Noteon 07-02-2024 ED Nursing Note robotics technician called to obtain ETA on pt imaging. Per MRI they will be getting pt shortly. Normal [facility] ED Nursing Note Patient provided wit h a bag and a cup for his partials prior to MRI scan. Normal [facility] ED Provider Noteon ED Provider Note Normal [facility] SEDIMENTATION RATE, AUTOMATE Don 07-02-2024 SEDIMENTATION RATE, ERYTHROCYTE 50 mm/hr High 0-10 [facility] Comment on above: Performed By: #### L AB322, [id number] ####Lathe Turner: SHENA GUERIN ([id number])[facility]ENTERLAVEL[facility] (SBHLAB)[address] BASIC METABOLIC PANELon 06-09 Anion gap [Moles/Vol] 15 mmol/L High 3-13 [facility] Comment on above: Performed By: #### L AB15, LAB99 ####Lathe Turner: SHENA GUERIN ([id number])[facility] CAMPUSKyler [place] (SBHLAB)[address] Calcium [Mass/Vol] 9.0 mg/dL Normal 8.4-10.2 [facility] Comment on above: Performed By: #### L AB15, LAB99 ####Lathe Turner: SHENA GUERIN ([id number])[facility] (SBHLAB)[address] Chloride [Moles/Vol] 107 mmol/L Normal 98-107 [facility] Comment on above: Performed By: #### L AB15, LAB99 ####Lathe Turner: SHENA GUERIN ([id number])[facility] (SBHLAB)[address] CO2 [Moles/Vol] 19 mmol/L Low 22-29 [facility] Comment on above: Performed By: #### L AB15, LAB99 ####Lathe Turner: SHENA GUERIN ([id number])[facility] (SBHLAB)[address] Creatinine [Mass/Vol] 0.61 mg/dL Low 0.72-1.25 [facility] Comment on above: Performed By: #### L AB15, LAB99 ####Lathe Turner: SHENA GUERIN ([id number])[facility] (SBHLAB)[address] GLOMERULAR FILTRATION RATE ML/MIN/1.73 SQ M.PREDICTED >90.0 Normal >60.0 [facility] Comment on above: Result Comment: Calc ulation based on the Chronic Kidney Disease Epidemiology Collaboration (CKD-EPI) equation refit without adjustment for race Performed By: #### L AB15, LAB99 ####Lathe Turner: SHENA GUERIN ([id number])[facility] (SBHLAB)[address] Glucose [Mass/Vol] 125 mg/dL High 74-100 [facility] Comment on above: Performed By: #### L AB15, LAB99 ####Lathe Turner: SHENA GUERIN ([id number])[facility] (SBHLAB)[address] [place] [address] [place] Potassium [Moles/Vol] 3.8 mmol/L Normal 3.5-5.1 [facility] Comment on above: Result Comment: [facility] potassium values may be up to 0.5 mmol/L lower than serum values. Performed By: #### L AB15, LAB99 ####Lathe Turner: SHENA GUERIN ([id number])[facility] CAMPUSKyler [facility]N (SBHLAB)[address] Sodium [Moles/Vol] 141 mmol/L Normal 136-145 [facility] Comment on above: Performed By: #### L AB15, LAB99 ####Lathe Turner: SHENA GUERIN ([id number])[facility] (SBHLAB)[address] Urea nitrogen [Mass/Vol] 4 mg/dL Low 8-21 [facility] Comment on above: Performed By: #### L AB15, LAB99 ####Lathe Turner: SHENA GUERIN ([id number])[facility] (SBHLAB)[address] Basic metabolic 1998 panelon 06-26-2024 Anion gap [Moles/Vol] 15 mmol/L High 3 - 13 mmol/L [facility] Calcium [Mass/Vol] 9 mg/dL 8.4 - 10. 2 mg/dL [facility] Chloride [Moles/Vol] 107 mmol/L 98 - 10 7 mmol/L [facility] CO2 [Moles/Vol] 19 mmol/L Low 22 - 29 mmol/L [facility] Creatinine [Mass/Vol] 0.61 mg/dL Low 0.72 - 1.25 mg/dL [facility] GFR/1.73 sq M.predicted (S/P/Bld) [Vol rate/Area] - PINF [facility] Comment on above: Calculation based on the Chronic Kidney Disease Epidemiology Collaboration (CKD-EPI) equation refit without adjustment for race Glucose [Mass/Vol] 125 mg/dL High 74 - 100 mg/dL [facility] Potassium [Moles/Vol] 3.8 mmol/L 3.5 - 5.1 mmol/L [facility] Comment on above: Plasma potassium víctor ues may be up to 0.5 mmol/L lower than serum values. Sodium [Moles/Vol] 141 mmol/L 136 - 145 mmol/L [facility] Urea nitrogen [Mass/Vol] 4 mg/dL Low 8 - 21 mg/dL [facility] CBC (HEMOGRAM)on 06-26-2024 Erythrocyte distribution width (RBC) [Ratio] 13.7 % Normal 11.5-15.0 [facility] Comment on above: Performed By: #### L AB294 ####Lathe Turner: SHENA GUERIN ([id number])[facility] CAMPUSKyler [facility] (SBAB)[address] [place] [address] Hematocrit (Bld) [Volume fraction] 42.0 % Normal 40.0-52.0 [facility] Comment on above: Performed By: #### L AB294 ####Lathe Turner: SHENA GUERIN ([id number])[facility] (SBAB)[address] [place] [address] Hemoglobin (Bld) [Mass/Vol] 14.2 g/dL Normal 13.0-18.0 [facility] Comment on above: Performed By: #### L AB294 ####Lathe Turner: SHENA GUERIN ([id number])[facility] ([facility])[address] [place] [address] MCH (RBC) [Entitic mass] 30.4 pg Normal 26.0-34.0 [facility] Comment on above: Performed By: #### L AB294 ####Lathe Turner: SHENA GUERIN ([id number])[facility] ([facility])[address] [place] [address] MCHC 33.8 % Normal 30.5-36.0 [facility] Comment on above: Performed By: #### L AB294 ####Lathe Turner: SHENA GUERIN ([id number])[facility] (SBAB)[address] [place] [address] MCV (RBC) [Entitic vol] 89.9 fL Normal 77.0-99.0 [facility] Comment on above: Performed By: #### L AB294 ####Lathe Turner: SHENA GUERIN ([id number])[facility] (SBAB)[address] [place] [address] Platelet mean volume (Bld) [Entitic vol] 9.9 fL Normal 9.0-12.7 [facility] Comment on above: Performed By: #### L AB294 ####Lathe Turner: SHENA GUERIN ([id number])[facility] (SBHLAB)[address] Platelets (Bld) [#/Vol] 384 10*3/uL Normal 140-440 [facility] Comment on above: Performed By: #### L AB294 ####Lathe Turner: SHENA GUERIN ([id number])[facility] (SBHLAB)[address] RBC (Bld) [#/Vol] 4.67 10*6/uL Normal 4.40-5.90 [facility] Comment on above: Performed By: #### L AB294 ####Lathe Turner: SHENA GUERIN ([id number])[facility] (SBHLAB)[address] WBC (Bld) [#/Vol] 9.2 10*3/uL Normal 3.6-10.7 [facility] Comment on above: Performed By: #### L AB294 ####Lathe Turner: SHENA GUERIN ([id number])[facility] ([facility])[address] [place] [address] CBC panel Auto (Bld)on 06-26 Erythrocyte distribution width (RBC) [Ratio] 13.7 % 11.5 - 15.0 % [facility] Hematocrit (Bld) [Volume fraction] 42 % 40.0 - 52.0 % [facility] Hemoglobin (Bld) [Mass/Vol] 14.2 g/dL 13.0 - 18.0 g/dL [facility] Interpretation and review of laboratory results Normal [facility] MCH (RBC) [Entitic mass] 30.4 pg 26.0 - 34.0 pg [facility] MCHC (RBC) [Mass/Vol] 33.8 % 30.5 - 36.0 % [facility] MCV (RBC) [Entitic vol] 89.9 fL 77.0 - 99.0 fL [facility] Platelet mean volume (Bld) [Entitic vol] 9.9 fL 9.0 - 12.7 fL [facility] Platelets (Bld) [#/Vol] 384 10*3/uL 140 - 440 10*3/uL [facility] RBC (Bld) [#/Vol] 4.67 10*6/uL 4.40 - 5.9 0 10*6/uL [facility] WBC (Bld) [#/Vol] 9.2 10*3/uL 3.6 - 10.7 10*3/uL [facility] CT ABDOMEN PELVIS W CONTRAST on 06-26-2024 CT ABDOMEN PELVIS W CONTRAST Normal [facility] CT Abdomen and Pelvis W cont rast Ellen 06-26-2024 Suspicious for acute pancreatitis. Report Dictated on Electronically Signed By: Steve Jacinto MD Electronically Signed Date/Time: 06/26/2024 9:50 PM EDT [facility] Patient Name: RORO CLAIRE : 1985 Exam Date/Time: 06/26/2024 20:51 Procedure: CT ABDOMEN PELVIS W CONTRAST Ordering Provider: DURBIN MEJGON Reason For Exam: hx pancreatitis with worsening pain Indication: Pain. History of pancreatitis. Comparison 06/12/2024. FINDINGS: Enhanced abdomen pelvis performed with 75 mL Isovue-370. Dose reduction and automatic exposure control utilized. Lung bases show no convincing acute process. No coronary calcification. Within the abdomen, no free air. No convincing bowel obstruction. Limited bowel evaluation without oral contrast. Inflammatory changes. The associated with the pancreas, extending to the gastric wall spleen and duodenum, similar to previous. No convincing abscess or pseudocyst. Some free fluid noted in the pelvis similar to previous. Fatty liver. No convincing acute process of the gallbladder or spleen, adrenals, kidneys, urinary bladder. No definite adenopathy. No spinal compression. [facility] Steve Jacinto MD - 06/26/2024 Patient Name: RORO VALDIVIA : 1985 Exam Date/Time: 06/26/2024 20:51 Procedure: CT ABDOMEN PELVIS W CONTRAST Ordering Provider: DURBIN MEJGON Reason For Exam: hx pancreatitis with worsening pain Indication: Pain. History of pancreatitis. Comparison 06/12/2024. FINDINGS: Enhanced abdomen pelvis performed with 75 mL Isovue-370. Dose reduction and automatic exposure control utilized. Lung bases show no convincing acute process. No coronary calcification. Within the abdomen, no free air. No convincing bowel obstruction. Limited bowel evaluation without oral contrast. Inflammatory changes. The associated with the pancreas, extending to the gastric wall spleen and duodenum, similar to previous. No convincing abscess or pseudocyst. Some free fluid noted in the pelvis similar to previous. Fatty liver. No convincing acute process of the gallbladder or spleen, adrenals, kidneys, urinary bladder. No definite adenopathy. No spinal compression. IMPRESSION: Suspicious for acute pancreatitis. Report Dictated on Electronically Signed By: Steve Jacinto MD Electronically Signed Date/Time: 06/26/2024 9:50 PM EDT [facility] Radiology Study observation (narrative) [facility] CT Abdomen and Pelvis W cont rast IVOrdered By: Steve Jacinto on 06-26-2024 [facility] Work Phone: ED Provider Noteon ED Provider Note Normal [facility] LIPASEon 06-26-2024 Lipase [Catalytic activity/Vol] 75 U/L High <55 [facility] Comment on above: Performed By: #### L AB15, LAB99 ####Lathe Turner: SHENA GUERIN ([id number])[facility] CAMPUSKyler OSORIO ([facility])[address] [place] [address] Laboratory - Chemistry and C hemistry - challengeon 06-26-2024 Lipase [Catalytic activity/Vol] 75 U/L High NINF - 55 U/L [facility] No Panel Informationon 06-26 Interpretation and review of laboratory results Abnormal [facility] ECG 12-LEADon 06-20-2024 ECG 12-LEAD IMPRESSION: Sinus rhythm LVH by voltage No significant change from previous ekg Electronically Signed On 06-20-2024 05:27:52 EDT by Mattie Durbin Normal [facility] No Panel Informationon 06-20 P [place] 40 degrees [facility] ME Interval 162 ms [facility] QRS [place] -2 degrees [facility] QRSD Interval 92 ms [facility] QT Interval 406 ms [facility] QTC Interval 469 ms [facility] T Wave [place] 8 degrees [facility] Sinus rhythm LVH by voltage No significant change from previous ekg Electronically Signed On 06-20-2024 05:27:52 EDT by Mattie Felix DO - 06/20/2024 IMPRESSION: Sinus rhythm LVH by voltage No significant change from previous ekg Electronically Signed On 06-20-2024 05:27:52 EDT by Mattie Durbin [facility] Vital signson 06-20-2024 Heart rate 80 /min bpm [facility] CBC W Auto Differential pane l (Bld)on 06-19-2024 Basophils (Bld) [#/Vol] 0.1 10*3/uL 0.0 - 0.2 10*3/uL [facility] Basophils/100 WBC (Bld) 0.5 % 0.0 - 2.0 % [facility] Eosinophils (Bld) [#/Vol] 0.2 10*3/uL 0.0 - 0.5 10*3/uL [facility] Eosinophils/100 WBC (Bld) 1.5 % 0.0 - 6.0 % [facility] Erythrocyte distribution width (RBC) [Ratio] 14 % 11.5 - 15.0 % [facility] Hematocrit (Bld) [Volume fraction] 39.9 % Low 40.0 - 52.0 % [facility] Hemoglobin (Bld) [Mass/Vol] 13.1 g/dL 13.0 - 18.0 g/dL [facility] Immature granulocytes (Bld) [#/Vol] 0 10*3/uL NINF - 0.1 10*3/uL [facility] Immature granulocytes/100 WBC (Bld) 0.4 % 0.0 - 2.0 % [facility] Interpretation and review of laboratory results Abnormal [facility] Lymphocytes (Bld) [#/Vol] 1.6 10*3/uL 1.0 - 4.3 10*3/uL [facility] Lymphocytes/100 WBC (Bld) 16.5 % 15.0 - 45.0 % [facility] MCH (RBC) [Entitic mass] 30.1 pg 26.0 - 34.0 pg [facility] MCHC (RBC) [Mass/Vol] 32.8 % 30.5 - 36.0 % [facility] MCV (RBC) [Entitic vol] 91.7 fL 77.0 - 99.0 fL [facility] Monocytes (Bld) [#/Vol] 0.8 10*3/uL 0.0 - 0.9 10*3/uL [facility] Monocytes/100 WBC (Bld) 8.3 % 5.0 - 13.0 % [facility] Neutrophils (Bld) [#/Vol] 7.1 10*3/uL 1.8 - 7.5 10*3/uL [facility] Neutrophils/100 WBC (Bld) 72.8 % 38.0 - 82.0 % [facility] Nucleated RBC/100 WBC (Bld) [Ratio] 0 % [facility] Platelet mean volume (Bld) [Entitic vol] 10.4 fL 9.0 - 12.7 fL [facility] Platelets (Bld) [#/Vol] 260 10*3/uL 140 - 440 10*3/uL [facility] RBC (Bld) [#/Vol] 4.35 10*6/uL Low 4.40 - 5.9 0 10*6/uL [facility] WBC (Bld) [#/Vol] 9.8 10*3/uL 3.6 - 10.7 10*3/uL [facility] CBC WITH AUTO DIFFERENTIALon 06-19-2024 Basophils (Bld) [#/Vol] 0.1 10*3/uL Normal 0.0-0.2 [facility] Comment on above: Performed By: #### L [id number] ####Lathe Turner: SHENA GUERIN ([id number])[facility] (SBAB)[address] [place] [address] Basophils/100 WBC (Bld) 0.5 % Normal 0.0-2.0 [facility] Comment on above: Performed By: #### L [id number] ####Lathe Turner: SHENA GUERIN ([id number])[facility] ([facility])[address] [place] [address] Eosinophils (Bld) [#/Vol] 0.2 10*3/uL Normal 0.0-0.5 [facility] Comment on above: Performed By: #### L [id number] ####Lathe Turner: SHENA GUERIN ([id number])[facility] ([facility])[address] Eosinophils/100 WBC (Bld) 1.5 % Normal 0.0-6.0 [facility] Comment on above: Performed By: #### L [id number] ####Lathe Turner: SHENA CHAMPAGNEBETTY ([id number])[facility] ([facility])[address] [place] [address] Erythrocyte distribution width (RBC) [Ratio] 14.0 % Normal 11.5-15.0 [facility] Comment on above: Performed By: #### L [id number] ####Lathe Turner: SHENA CHAMPAGNEBETTY ([id number])[facility] ([facility])[address] [place] [address] Hematocrit (Bld) [Volume fraction] 39.9 % Low 40.0-52.0 [facility] Comment on above: Performed By: #### L [id number] ####Lathe Turner: SHENA GUERIN ([id number])[facility] ([facility])[address] [place] [address] Hemoglobin (Bld) [Mass/Vol] 13.1 g/dL Normal 13.0-18.0 [facility] Comment on above: Performed By: #### L [id number] ####Lathe Turner: SHENA GUERIN ([id number])[facility] ([facility])[address] [place] [address] IMMATURE GRANS % 0.4 % Normal 0.0-2.0 [facility] Comment on above: Performed By: #### L [id number] ####Lathe Turner: SHENA GUERIN ([id number])[facility]AMPUSKyler [facility]u (SBHLAB)[address] IMMATURE GRANS ABSOLUTE 0.0 10*3/uL Normal <0.1 [facility] Comment on above: Performed By: #### L [id number] ####Lathe Turner: SHENA GUERIN ([id number])[facility] CAMPUSKyler CLAFLIN (SBHLAB)[address] Lymphocytes (Bld) [#/Vol] 1.6 10*3/uL Normal 1.0-4.3 [facility] Comment on above: Performed By: #### L [id number] ####Lathe Turner: SHENA GUERIN ([id number])[facility] CAMPUSKyler [place]FL[place] (SBHLAB)[address] [place] [address] Lymphocytes/100 WBC (Bld) 16.5 % Normal 15.0-45.0 [facility] Comment on above: Performed By: #### L [id number] ####Lathe Turner: SHENA GUERIN ([id number])[facility]AMPUSKyler [facility] (SBHLAB)[address] MCH (RBC) [Entitic mass] 30.1 pg Normal 26.0-34.0 [facility] Comment on above: Performed By: #### L [id number] ####Lathe Turner: SHENA GUERIN ([id number])[facility] (SBHLAB)[address] MCHC 32.8 % Normal 30.5-36.0 [facility] Comment on above: Performed By: #### L [id number] ####Lathe Turner: SHENA GUERIN ([id number])[facility] CAMPUSKyler CLAFLIN (SBHLAB)[address] MCV (RBC) [Entitic vol] 91.7 fL Normal 77.0-99.0 [facility] Comment on above: Performed By: #### L [id number] ####Lathe Turner: SHENA [id number])[facility] (SBHLAB)[address] Monocytes (Bld) [#/Vol] 0.8 10*3/uL Normal 0.0-0.9 [facility] Comment on above: Performed By: #### L [id number] ####Lathe Turner: SHENA GUERIN ([id number])[facility] (SBHLAB)[address] Monocytes/100 WBC (Bld) 8.3 % Normal 5.0-13.0 [facility] Comment on above: Performed By: #### L [id number] ####Lathe Turner: SHENA GUERIN ([id number])[facility] (SBHLAB)[address] NEUTROPHILS ABSOLUTE 7.1 10*3/uL Normal 1.8-7.5 [facility] Comment on above: Performed By: #### L [id number] ####Lathe Turner: SHENA GUERIN ([id number])[facility] CAMPUSA [place] (SBHLAB)[address] Neutrophils/100 WBC (Bld) 72.8 % Normal 38.0-82.0 [facility] Comment on above: Performed By: #### L [id number] ####Lathe Turner: SHENA GUERIN ([id number])[facility] (SBHLAB)[address] NRBC 0.0 /100 WBCs Normal 0.0-2.0 [facility] Comment on above: Performed By: #### L [id number] ####Lathe Turner: SHENA GUERIN ([id number])[facility] CAMPUSA [place] (SBHLAB)[address] Platelet mean volume (Bld) [Entitic vol] 10.4 fL Normal 9.0-12.7 [facility] Comment on above: Performed By: #### L [id number] ####Lathe Turner: SHENA GUERIN ([id number])[facility] CAMPUSKyler [place] (SBHLAB)[address] Platelets (Bld) [#/Vol] 260 10*3/uL Normal 140-440 [facility] Comment on above: Performed By: #### L [id number] ####Lathe Turner: SHENA GUERIN ([id number])[facility] OLLIECIBOLA GENERAL HOSPITALN (SBHLAB)[address] RBC (Bld) [#/Vol] 4.35 10*6/uL Low 4.40-5.90 [facility] Comment on above: Performed By: #### L [id number] ####Lathe Turner: SHENA GUERIN ([id number])[facility]LLIECIBOLA GENERAL HOSPITALN (SBHLAB)[address] WBC (Bld) [#/Vol] 9.8 10*3/uL Normal 3.6-10.7 [facility] Comment on above: Performed By: #### L [id number] ####Lathe Turner: SHENA GUEIRN ([id number])[facility] (SBHLAB)[address] [place] [address] COMPLETE URINALYSIS WITH REF VAIBHAV TO CULTUREon 06-19-2024 BACTERIA (#/HPF) IN URINE Negative Normal Negative [facility] Comment on above: Performed By: #### L [id number] ####Lathe Turner: SHENA GUERIN ([id number])[facility] (SBHL[facility])[address] BILIRUBIN, TOTAL PRESENCE IN URINE 0.5 mg/dL Abnormal Negative [facility] Comment on above: Performed By: #### L [id number] ####Lathe Turner: SHENA GUERIN ([id number])[facility] (SBHLAB)[address] Clarity (U) Clear Normal Clear [facility] Comment on above: Performed By: #### L [id number] ####Lathe Turner: SHENA GUERIN ([id number])[facility] CAMPUSA [facility] (SBHLAB)[address] Color (U) Dark Yellow Abnormal Lt. Yellow [facility] Comment on above: Performed By: #### L [id number] ####Lathe Turner: SHENA GUERIN ([id number])[facility] (HLAB)[address] GLUCOSE (MG/DL) IN URINE Normal Normal Normal (<70) [facility] Comment on above: Performed By: #### L [id number] ####Lathe Turner: SHENA GUERIN ([id number])[facility] ([facility])[address] HEMOGLOBIN PRESENCE IN URINE Negative Normal Negative [facility] Comment on above: Performed By: #### L [id number] ####Lathe Turner: SHENA GUERIN ([id number])[facility] ([facility])[address] Ketones Ql (U) Trace Abnormal Negative [facility] Comment on above: Performed By: #### L [id number] ####Lathe Turner: SHENA GUERIN ([id number])[facility] ([facility])[address] LEUKOCYTE ESTERASE PRESENCE IN URINE BY TEST STRIP Negative Normal Negative [facility] Comment on above: Performed By: #### L [id number] ####Lathe Turner: SHENA GUERIN ([id number])[facility] ([facility])[address] [place] [address] [place] MUCUS (#/LPF) IN URINE SEDIMENT Many Abnormal Negative [facility] Comment on above: Performed By: #### L [id number] ####Lathe Turner: SHENA GUERIN ([id number])[facility] ([facility])[address] NITRITE PRESENCE IN URINE Negative Normal Negative [facility] Comment on above: Performed By: #### L [id number] ####Lathe Turner: SHENA GUERIN ([id number])[facility] CAMPUSKyler [place] (SBHLAB)[address] pH (U) 6.0 [pH] Normal 5.0-8.0 [facility] Comment on above: Performed By: #### L [id number] ####Lathe Turner: SHENA GUERIN ([id number])[facility] (SBHLAB)[address] Protein (U) [Mass/Vol] 30 mg/dL Abnormal Negative [facility] Comment on above: Performed By: #### L [id number] ####Lathe Turner: SHENA DEL ROSARIOMARILOUBETTY ([id number])[facility] ([facility])[address] RBC (#/HPF) IN URINE SEDIMENT 3-5 Abnormal 0-2 [facility] Comment on above: Performed By: #### L [id number] ####Lathe Turner: SHENA CHAMPAGNEBETTY ([id number])[facility] ([facility])[address] [place] [address] Specific gravity (U) [Rel density] 1.037 High 1.005-1.030 [facility] Comment on above: Result Comment: PIEDAD Echeverria COMMENTS:A specimen with <=10 WBC is not consistent with inflammation. This specimen will not reflex to a urine culture. Performed By: #### L [id number] ####Lathe Turner: SHENA GUERIN ([id number])[facility] CAMPUSKyler [place] ([facility])[address] SQUAMOUS EPITHELIAL CELLS (#/HPF) IN URINE SEDIMENT 0-2 Normal 3-5 [facility] Comment on above: Performed By: #### L [id number] ####Lathe Turner: SHENA GUERIN ([id number])[facility] ([facility])[address] UROBILINOGEN (MG/DL) IN URINE 6 mg/dL Abnormal Normal (0-1) [facility] Comment on above: Performed By: #### L [id number] ####Lathe Turner: SHENA APOORVA ([id number])[facility] CAMPUSA [place] (SBHLAB)[address] WBC (LEUKOCYTE) (#/HPF) IN URINE SEDIMENT 0-2 Normal 0-5 [facility] Comment on above: Performed By: #### L [id number] ####Lathe Turner: SHENA DEL ROSARIOHAMIDA ([id number])[facility] CAMPUSA [place] (SBHLAB)[address] COMPREHENSIVE METABOLIC PANE Rylan 06-19-2024 Albumin [Mass/Vol] 3.7 g/dL Normal 3.5-5.0 [facility] Comment on above: Performed By: #### L AB17, LAB99 ####Lathe Turner: SHENA DEL ROSARIOHAMIDA ([id number])[facility] CAMPUSA [place] (SBHLAB)[address] ALP [Catalytic activity/Vol] 161 U/L High 40-150 [facility] Comment on above: Performed By: #### L AB17, LAB99 ####Lathe Turner: SHENA GUERIN ([id number])[facility] CAMPUSA [place] (SBHLAB)[address] ALT [Catalytic activity/Vol] 50 U/L High <40 [facility] Comment on above: Performed By: #### L AB17, LAB99 ####Lathe Turner: SHENA GUERIN ([id number])[facility] CAMPUSA [place] (SBHLAB)[address] Anion gap [Moles/Vol] 11 mmol/L Normal 3-13 [facility] Comment on above: Performed By: #### L AB17, LAB99 ####Lathe Turner: SHENA GUERIN ([id number])[facility] CAMPUSA [place] (SBHLAB)[address] AST [Catalytic activity/Vol] 90 U/L High <34 [facility] Comment on above: Performed By: #### L AB17, LAB99 ####Lathe Turner: SHENA GUERIN ([id number])[facility] CAMPUSA [place] (SBHLAB)[address] Bilirubin [Mass/Vol] 1.2 mg/dL High <1.2 [facility] Comment on above: Performed By: #### L AB17, LAB99 ####Lathe Turner: SHENA GUERIN ([id number])[facility] CAMPUSA [place] (SBHLAB)[address] Calcium [Mass/Vol] 9.3 mg/dL Normal 8.4-10.2 [facility] Comment on above: Performed By: #### L AB17, LAB99 ####Lathe Turner: SHENA GUERIN ([id number])[facility] CAMPUSA [place] (SBHLAB)[address] Chloride [Moles/Vol] 107 mmol/L Normal 98-107 [facility] Comment on above: Performed By: #### L AB17, LAB99 ####Lathe Turner: SHENA GUERIN ([id number])[facility] CAMPUSA [place] (SBHLAB)[address] CO2 [Moles/Vol] 21 mmol/L Low 22-29 [facility] Comment on above: Performed By: #### L AB17, LAB99 ####Lathe Turner: SHENA GUERIN ([id number])[facility] CAMPUSA [place] (SBHLAB)[address] Creatinine [Mass/Vol] 0.68 mg/dL Low 0.72-1.25 [facility] Comment on above: Performed By: #### L AB17, LAB99 ####Lathe Turner: SHENA GUERIN ([id number])[facility] CAMPUSA [place] (SBHLAB)[address] GLOMERULAR FILTRATION RATE ML/MIN/1.73 SQ M.PREDICTED >90.0 Normal >60.0 [facility] Comment on above: Result Comment: Calc ulation based on the Chronic Kidney Disease Epidemiology Collaboration (CKD-EPI) equation refit without adjustment for race Performed By: #### L AB17, LAB99 ####Lathe Turner: SHENA GUERIN ([id number])[facility] CAMPUSKyler [place] (SBHLAB)[address] Glucose [Mass/Vol] 104 mg/dL High 74-100 [facility] Comment on above: Performed By: #### L AB17, LAB99 ####Lathe Turner: SHENA GUERIN ([id number])[facility] CAMPUSA [place] (SBHLAB)[address] Potassium [Moles/Vol] 4.2 mmol/L Normal 3.5-5.1 [facility] Comment on above: Result Comment: [facility] potassium values may be up to 0.5 mmol/L lower than serum values. Performed By: #### L AB17, LAB99 ####Lathe Turner: SHENA GUERIN ([id number])[facility] CAMPUSKyler [facility] (SBHLAB)[address] Protein [Mass/Vol] 7.5 g/dL Normal 6.4-8.3 [facility] Comment on above: Performed By: #### L AB17, LAB99 ####Lathe Turner: SHENA GUERIN ([id number])[facility] CAMPUSKyler [place] (SBHLAB)[address] Sodium [Moles/Vol] 139 mmol/L Normal 136-145 [facility] Comment on above: Performed By: #### L AB17, LAB99 ####Lathe Turner: SHENA GUERIN ([id number])[facility] CAMPUSA [place] (SBHLAB)[address] Urea nitrogen [Mass/Vol] 5 mg/dL Low 8-21 [facility] Comment on above: Performed By: #### L AB17, LAB99 ####Lathe Turner: SHENA GUERIN ([id number])[facility] CAMPUSA BARBCIBOL[facility]OSPITALN (SBHLAB)[address] Comprehensive metabolic 1998 panelon 06-19-2024 Albumin [Mass/Vol] 3.7 g/dL 3.5 - 5.0 g/dL [facility] ALP [Catalytic activity/Vol] 161 U/L High 40 - 150 U/L [facility] ALT [Catalytic activity/Vol] 50 U/L [facility] Anion gap [Moles/Vol] 11 mmol/L 3 - 13 mmol/L [facility] AST [Catalytic activity/Vol] 90 U/L High [facility] - 34 U/L [facility] Bilirubin [Mass/Vol] 1.2 mg/dL High NINF - 1.2 mg/dL [facility] Calcium [Mass/Vol] 9.3 mg/dL 8.4 - 10. 2 mg/dL [facility] Chloride [Moles/Vol] 107 mmol/L 98 - 10 7 mmol/L [facility] CO2 [Moles/Vol] 21 mmol/L Low 22 - 29 mmol/L [facility] Creatinine [Mass/Vol] 0.68 mg/dL Low 0.72 - 1.25 mg/dL [facility] GFR/1.73 sq M.predicted (S/P/Bld) [Vol rate/Area] - PINF [facility] Comment on above: Calculation based on the Chronic Kidney Disease Epidemiology Collaboration (CKD-EPI) equation refit without adjustment for race Glucose [Mass/Vol] 104 mg/dL High 74 - 100 mg/dL [facility] Potassium [Moles/Vol] 4.2 mmol/L 3.5 - 5.1 mmol/L [facility] Comment on above: Plasma potassium víctor ues may be up to 0.5 mmol/L lower than serum values. Protein [Mass/Vol] 7.5 g/dL 6.4 - 8.3 g/dL [facility] Sodium [Moles/Vol] 139 mmol/L 136 - 145 mmol/L [facility] Urea nitrogen [Mass/Vol] 5 mg/dL Low 8 - 21 mg/dL [facility] ED Provider Noteon ED Provider Note Normal [facility] HIGH SENSITIVITY TROPONIN, S ERIAL BASELINEon 06-19-2024 TROPONIN HS SERIAL BASELINE <3 Normal <=35 [facility] Comment on above: Result Comment: In i ndividuals presenting with symptoms > 2h, a baseline troponin <= 5 ng/L suggests acutecardiac injury is unlikely and further serial testing is generally not indicated. Performed By: #### L [id number] ####Lathe Turner: SHENA DEL ROSARIOHAMIDA ([id number])[facility] (SBHLAB)[address] LIPASEon 06-19-2024 Lipase [Catalytic activity/Vol] 65 U/L High <55 [facility] Comment on above: Performed By: #### L AB17, LAB99 ####Lathe Turner: SHENA APOORVA ([id number])[facility] (SBHLAB)[address] Laboratory - Chemistry and C hemistry - challengeon 06-19-2024 Lipase [Catalytic activity/Vol] 65 U/L High NINF - 55 U/L [facility] No Panel Informationon 06-19 Interpretation and review of laboratory results Normal [facility] Troponin HS Serial Baseline ng/L NINF - 35 ng/L [facility] Comment on above: In individuals prese nting with symptoms > 2h, a baseline troponin <= 5 ng/L suggests acute cardiac injury is unlikely and further serial testing is generally not indicated. [facility] Interpretation and review of laboratory results Abnormal [facility] Urinalysis complete panel (U )Ordered By: Nigel Palmer on 06-19-2024 Bacteria LM.HPF (Urine sed) [#/Area] Negative Negative /HPF [facility] Bilirubin Ql (U) 0.5 mg/dL Abnormal Negative [facility] Clarity (U) Clear Clear [facility] Color (U) Dark Yellow Abnormal Lt. Yellow [facility] Epithelial cells.squamous LM.HPF (Urine sed) [#/Area] 0-2 [facility] Glucose Ql (U) Normal Normal (<70) mg/dL [facility] Hemoglobin Ql (U) Negative Negative mg/dL [facility] Interpretation and review of laboratory results Abnormal [facility] Ketones (U) [Mass/Vol] Trace Abnormal Negat chan mg/dL [facility] Leukocyte esterase Test strip Ql (U) Negative Negative Teofilo/uL [facility] Mucus LM.HPF (Urine sed) [#/Area] Many Abnormal Negative /LPF [facility] Nitrite Ql (U) Negative Negative [facility] pH (U) 6.0 [pH] 5.0 - 8.0 pH [facility] Protein (U) [Mass/Vol] 30 mg/dL Abnormal Negative [facility] RBC LM.HPF (Urine sed) [#/Area] 3-5 Abnormal [facility] Specific gravity (U) [Rel density] 1.037 High 1.005 - 1.030 [facility] Urobilinogen (U) [Mass/Vol] 6 mg/dL Abnormal Normal (0-1) [facility] WBC LM.HPF (Urine sed) [#/Area] 0-2 [facility] A specimen with <=10 WBC is not consistent with inflammation. This specimen will not reflex to a urine culture. [facility] XR Chest Single viewon 06-19 No radiographic acute cardiopulmonary process. Report Dictated on Electronically Signed By: Seema Watson MD Electronically Signed Date/Time: 06/19/2024 9:43 PM EDT [facility] EMERG[facility] RADIOLOGY SYSTEM Patient Name: RORO CLAIRE : 1985 Exam Date/Time: 06/19/2024 21:32 Procedure: XR CHEST 1 VIEW Ordering Provider: ADAME MARY Reason For Exam: cp INDICATION: Chest pain. VIEWS: Chest portable-one image COMPARISON: 12/14/2023 FINDINGS: The trachea is midline. The cardiac silhouette is within normal limits. The lungs are clear. The costophrenic angles are sharp. The bone mineralization is normal. [facility] Seema Watson MD - 06/19/2024 Patient Name: RORO VALDIVIA : 1985 Exam Date/Time: 06/19/2024 21:32 Procedure: XR CHEST 1 VIEW Ordering Provider: ADAME MARY Reason For Exam: cp INDICATION: Chest pain. VIEWS: Chest portable-one image COMPARISON: 12/14/2023 FINDINGS: The trachea is midline. The cardiac silhouette is within normal limits. The lungs are clear. The costophrenic angles are sharp. The bone mineralization is normal. IMPRESSION: No radiographic acute cardiopulmonary process. Report Dictated on Electronically Signed By: Seema Watson MD Electronically Signed Date/Time: 06/19/2024 9:43 PM EDT [facility] Radiology Study observation (narrative) [facility] XR Chest Single viewOrdered By: Seema Watson on 06-19-2024 [facility] Work Phone: CBC W Auto Differential pane l (Bld)on 06-18-2024 Basophils (Bld) [#/Vol] 0 10*3/uL 0.0 - 0.2 10*3/uL [facility] Basophils/100 WBC (Bld) 0.4 % 0.0 - 2.0 % [facility] Eosinophils (Bld) [#/Vol] 0.1 10*3/uL 0.0 - 0.5 10*3/uL [facility] Eosinophils/100 WBC (Bld) 1.1 % 0.0 - 6.0 % [facility] Erythrocyte distribution width (RBC) [Ratio] 14.1 % 11.5 - 15.0 % [facility] Hematocrit (Bld) [Volume fraction] 42.8 % 40.0 - 52.0 % [facility] Hemoglobin (Bld) [Mass/Vol] 14.1 g/dL 13.0 - 18.0 g/dL [facility] Immature granulocytes (Bld) [#/Vol] 0 10*3/uL NINF - 0.1 10*3/uL [facility] Immature granulocytes/100 WBC (Bld) 0.5 % 0.0 - 2.0 % [facility] Interpretation and review of laboratory results Normal [facility] Lymphocytes (Bld) [#/Vol] 2.2 10*3/uL 1.0 - 4.3 10*3/uL [facility] Lymphocytes/100 WBC (Bld) 26.6 % 15.0 - 45.0 % [facility] MCH (RBC) [Entitic mass] 30.3 pg 26.0 - 34.0 pg [facility] MCHC (RBC) [Mass/Vol] 32.9 % 30.5 - 36.0 % [facility] MCV (RBC) [Entitic vol] 92 fL 77.0 - 99.0 fL [facility] Monocytes (Bld) [#/Vol] 0.6 10*3/uL 0.0 - 0.9 10*3/uL [facility] Monocytes/100 WBC (Bld) 7.1 % 5.0 - 13.0 % [facility] Neutrophils (Bld) [#/Vol] 5.2 10*3/uL 1.8 - 7.5 10*3/uL [facility] Neutrophils/100 WBC (Bld) 64.3 % 38.0 - 82.0 % [facility] Nucleated RBC/100 WBC (Bld) [Ratio] 0 % [facility] Platelet mean volume (Bld) [Entitic vol] 10.6 fL 9.0 - 12.7 fL [facility] Platelets (Bld) [#/Vol] 299 10*3/uL 140 - 440 10*3/uL [facility] RBC (Bld) [#/Vol] 4.65 10*6/uL 4.40 - 5.9 0 10*6/uL [facility] WBC (Bld) [#/Vol] 8.1 10*3/uL 3.6 - 10.7 10*3/uL [facility] CBC WITH AUTO DIFFERENTIALon 06-18-2024 Basophils (Bld) [#/Vol] 0.0 10*3/uL Normal 0.0-0.2 [facility] Comment on above: Performed By: #### L [id number] ####Lathe Turner: SHENA GUERIN ([id number])[facility])[address] [place] [address] Basophils/100 WBC (Bld) 0.4 % Normal 0.0-2.0 [facility] Comment on above: Performed By: #### L [id number] ####Lathe Turner: SHENA GUERIN ([id number])[facility] (SB[facility])[address] Eosinophils (Bld) [#/Vol] 0.1 10*3/uL Normal 0.0-0.5 [facility] Comment on above: Performed By: #### L [id number] ####Lathe Turner: SHENA [id number])[facility] [place] (SBHLAB)[address] Eosinophils/100 WBC (Bld) 1.1 % Normal 0.0-6.0 [facility] Comment on above: Performed By: #### L [id number] ####Lathe Turner: SHENA GUERIN ([id number])[facility]AMPUSA [place] (SBHLAB)[address] Erythrocyte distribution width (RBC) [Ratio] 14.1 % Normal 11.5-15.0 [facility] Comment on above: Performed By: #### L [id number] ####Lathe Turner: SHENA GUERIN ([id number])[facility]USA [facility] Hematocrit (Bld) [Volume fraction] 42.8 % Normal 40.0-52.0 [facility] Comment on above: Performed By: #### L [id number] ####Lathe Turner: SHENA GUERIN ([id number])[facility]AMPUSA [place] (SBHLAB)[address] Hemoglobin (Bld) [Mass/Vol] 14.1 g/dL Normal 13.0-18.0 [facility] Comment on above: Performed By: #### L [id number] ####Lathe Turner: SHENA GUERIN ([id number])[facility] SOUTH CAMPUSA [place] (SBHLAB)[address] IMMATURE GRANS % 0.5 % Normal 0.0-2.0 [facility] Comment on above: Performed By: #### L [id number] ####Lathe Turner: SHENA GUERIN ([id number])[facility] SOUTH CAMPUSA [place] (SBHLAB)[address] IMMATURE GRANS ABSOLUTE 0.0 10*3/uL Normal <0.1 [facility] Comment on above: Performed By: #### L [id number] ####Lathe Turner: SHENA GUERIN ([id number])[facility] SOUTH CAMPUSA [place] (SBHLAB)[address] Lymphocytes (Bld) [#/Vol] 2.2 10*3/uL Normal 1.0-4.3 [facility] Comment on above: Performed By: #### L [id number] ####Lathe Turner: SHENA GUERIN ([id number])[facility] SOUTH CAMPUSKyler [place] (SBHLAB)[address] Lymphocytes/100 WBC (Bld) 26.6 % Normal 15.0-45.0 [facility] Comment on above: Performed By: #### L [id number] ####Lathe Turner: SHENA GUERIN ([id number])[facility] SOUTH CAMPUSKyler ENGELCAPRICEN (SBHLAB)[address] [place] [address] MCH (RBC) [Entitic mass] 30.3 pg Normal 26.0-34.0 [facility] Comment on above: Performed By: #### L [id number] ####Lathe Turner: SHENA GUERIN ([id number])[facility] SOUTH CAMPUSKyler [place] (SBHLAB)[address] [place] [address] MCHC 32.9 % Normal 30.5-36.0 [facility] Comment on above: Performed By: #### L [id number] ####Lathe Turner: SHENA GUERIN ([id number])[place] (SBHLAB)[address] [place] [address] MCV (RBC) [Entitic vol] 92.0 fL Normal 77.0-99.0 [facility] Comment on above: Performed By: #### L [id number] ####Lathe Turner: SHENA GUERIN ([id number])[facility] CAMPUSA [place] (SBHLAB)[address] [place] [address] Monocytes (Bld) [#/Vol] 0.6 10*3/uL Normal 0.0-0.9 [facility] Comment on above: Performed By: #### L [id number] ####Lathe Turner: SHENA GUERIN ([id number])[facility] [place] (SBHLAB)[address] Monocytes/100 WBC (Bld) 7.1 % Normal 5.0-13.0 [facility] Comment on above: Performed By: #### L [id number] ####Lathe Turner: SHENA GUERIN ([id number])[facility] [place] (SBHLAB)[address] NEUTROPHILS ABSOLUTE 5.2 10*3/uL Normal 1.8-7.5 [facility] Comment on above: Performed By: #### L [id number] ####Lathe Turner: SHENA GUERIN ([id number])[facility] [place] (SBHLAB)[address] Neutrophils/100 WBC (Bld) 64.3 % Normal 38.0-82.0 [facility] Comment on above: Performed By: #### L [id number] ####Lathe Turner: SHENA GUERIN ([id number])[facility] CAMPUSA [place] (SBHLAB)[address] NRBC 0.0 /100 WBCs Normal 0.0-2.0 [facility] Comment on above: Performed By: #### L [id number] ####Lathe Turner: SHENA GUERIN ([id number])[facility] [place] (SBHLAB)[address] Platelet mean volume (Bld) [Entitic vol] 10.6 fL Normal 9.0-12.7 [facility] Comment on above: Performed By: #### L [id number] ####Lathe Turner: SHENA GUERIN ([id number])[facility] CAMPUSA [place] (SBHLAB)155 [place] [address] [place] Platelets (Bld) [#/Vol] 299 10*3/uL Normal 140-440 [facility] Comment on above: Performed By: #### L [id number] ####Lathe Turner: SHENA GUERIN ([id number])[facility] CAMPUSA [place] (SBHLAB)[address] RBC (Bld) [#/Vol] 4.65 10*6/uL Normal 4.40-5.90 [facility] Comment on above: Performed By: #### L [id number] ####Lathe Turner: SHENA GUERIN ([id number])[facility] SOUTH CAMPUSKyler [place] (SBHLAB)[address] WBC (Bld) [#/Vol] 8.1 10*3/uL Normal 3.6-10.7 [facility] Comment on above: Performed By: #### L [id number] ####Lathe Turner: SHENA GUERIN ([id number])[facility] S[facility] CAMPUSKyler NEUMANNTu (SBHLAB)[address] COMPREHENSIVE METABOLIC PANE Rylan 06-18-2024 Albumin [Mass/Vol] 3.9 g/dL Normal 3.5-5.0 [facility] Comment on above: Performed By: #### Iggy AB99, LAB17, LAB46 ####Lathe Turner: SHENA GUERIN ([id number])[facility] S[facility] CAMPUSKyler ENGELCIBOLA GENERAL HOSPITALN (SBHLAB)[address] ALP [Catalytic activity/Vol] 170 U/L High 40-150 [facility] Comment on above: Performed By: #### L AB99, LAB17, LAB46 ####Lathe Turner: SHENA GUERIN ([id number])[facility] S[facility] CAMPUSKyler [place] (SBHLAB)[address] ALT [Catalytic activity/Vol] 59 U/L High <40 [facility] Comment on above: Performed By: #### L AB99, LAB17, LAB46 ####Lathe Turner: SHENA GUERIN ([id number])[facility] CAMPUSA [place] (SBHLAB)[address] Anion gap [Moles/Vol] 10 mmol/L Normal 3-13 [facility] Comment on above: Performed By: #### L AB99, LAB17, LAB46 ####Lathe Turner: SHENA GUERIN ([id number])[facility]UCKA [place] (SBHLAB)[address] [place] [address] [place] AST [Catalytic activity/Vol] 91 U/L High <34 [facility] Comment on above: Performed By: #### L AB99, LAB17, LAB46 ####Lathe Turner: SHENA GUERIN ([id number])[facility] CAMPUSA [place] (SBHLAB)[address] Bilirubin [Mass/Vol] 1.2 mg/dL High <1.2 [facility] Comment on above: Performed By: #### L AB99, LAB17, LAB46 ####Lathe Turner: SHENA GUERIN ([id number])[facility] S[facility] CAMPUSA [place] (SBHLAB)[address] Calcium [Mass/Vol] 9.7 mg/dL Normal 8.4-10.2 [facility] Comment on above: Performed By: #### Iggy ROBB, LAB17, LAB46 ####Lathe Turner: SHENA GUERIN ([id number])[facility] CAMPUSA OLLIECIBOLA GENERAL HOSPITALN (SBHLAB)[address] [place] [address] [place] Chloride [Moles/Vol] 105 mmol/L Normal 98-107 [facility] Comment on above: Performed By: #### L AB99, LAB17, LAB46 ####Lathe Turner: SHENA GUERIN ([id number])[facility] CAMPUSA [place] (SBHLAB)[address] [place] [address] [place] CO2 [Moles/Vol] 23 mmol/L Normal 22-29 [facility] Comment on above: Performed By: #### L AB99, LAB17, LAB46 ####Lathe Turner: SHENA GUERIN ([id number])[facility] CAMPUSA [place] (SBHLAB)[address] [place] [address] [place] Creatinine [Mass/Vol] 0.64 mg/dL Low 0.72-1.25 [facility] Comment on above: Performed By: #### L AB99, LAB17, LAB46 ####Lathe Turner: SHENA GUERIN ([id number])[facility] S[facility] CAMPUSKyler [facility]ELPHOEN[facility] (SBHLAB)[address] GLOMERULAR FILTRATION RATE ML/MIN/1.73 SQ M.PREDICTED >90.0 Normal >60.0 [facility] Comment on above: Result Comment: Calc ulation based on the Chronic Kidney Disease Epidemiology Collaboration (CKD-EPI) equation refit without adjustment for race Performed By: #### L AB99, LAB17, LAB46 ####Lathe Turner: SHENA GUERIN ([id number])[facility] S[facility] CAMPUSKyler [place] (SBHLAB)[address] Glucose [Mass/Vol] 120 mg/dL High 74-100 [facility] Comment on above: Performed By: #### Iggy AB99, LAB17, LAB46 ####Lathe Turner: SHENA GUERIN ([id number])[facility] (SBHLAB)[address] Potassium [Moles/Vol] 4.0 mmol/L Normal 3.5-5.1 [facility] Comment on above: Result Comment: [facility] potassium values may be up to 0.5 mmol/L lower than serum values. Performed By: #### Iggy JOHNSON99, LAB17, LAB46 ####Lathe Turner: SHENA GUERIN ([id number])[facility] S[facility] CAMPUSKyler [facility]ELPHOEN[facility] (SBHLAB)[address] Protein [Mass/Vol] 8.2 g/dL Normal 6.4-8.3 [facility] Comment on above: Performed By: #### L AB99, LAB17, LAB46 ####Lathe Turner: SHENA GUERIN ([id number])[facility] (SBHLAB)[address] [place] [address] [place] Sodium [Moles/Vol] 138 mmol/L Normal 136-145 [facility] Comment on above: Performed By: #### L AB99, LAB17, LAB46 ####Lathe Turner: SHENA GUERIN ([id number])[facility] (SBHLAB)[address] Urea nitrogen [Mass/Vol] 4 mg/dL Low 8-21 [facility] Comment on above: Performed By: #### L AB99, LAB17, LAB46 ####Lathe Turner: SHENA GUERIN ([phone])[facility] [place] (SBHLAB)[address] Comprehensive metabolic 1998 panelon 06-18-2024 Albumin [Mass/Vol] 3.9 g/dL 3.5 - 5.0 g/dL [facility] ALP [Catalytic activity/Vol] 170 U/L High 40 - 150 U/L [facility] ALT [Catalytic activity/Vol] 59 U/L High NINF - 40 U/L [facility] Anion gap [Moles/Vol] 10 mmol/L 3 - 13 mmol/L [facility] AST [Catalytic activity/Vol] 91 U/L High NINF - 34 U/L [facility] Bilirubin [Mass/Vol] 1.2 mg/dL High NINF - 1.2 mg/dL [facility] Calcium [Mass/Vol] 9.7 mg/dL 8.4 - 10. 2 mg/dL [facility] Chloride [Moles/Vol] 105 mmol/L 98 - 10 7 mmol/L [facility] CO2 [Moles/Vol] 23 mmol/L 22 - 29 mmol/L [facility] Creatinine [Mass/Vol] 0.64 mg/dL Low 0.72 - 1.25 mg/dL [facility] GFR/1.73 sq M.predicted (S/P/Bld) [Vol rate/Area] - PINF [facility] Comment on above: Calculation based on the Chronic Kidney Disease Epidemiology Collaboration (CKD-EPI) equation refit without adjustment for race Glucose [Mass/Vol] 120 mg/dL High 74 - 100 mg/dL [facility] Interpretation and review of laboratory results Abnormal [facility] Potassium [Moles/Vol] 4 mmol/L 3.5 - 5.1 mmol/L [facility] Comment on above: Plasma potassium víctor ues may be up to 0.5 mmol/L lower than serum values. Protein [Mass/Vol] 8.2 g/dL 6.4 - 8.3 g/dL [facility] Sodium [Moles/Vol] 138 mmol/L 136 - 145 mmol/L [facility] Urea nitrogen [Mass/Vol] 4 mg/dL Low 8 - 21 mg/dL [facility] ED Provider Noteon ED Provider Note Normal [facility] ETHANOLon 06-18-2024 ETHANOL IN SER/PLAS <10 Normal <10 [facility] Comment on above: Result Comment: PIEDAD R COMMENTS: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NOTE: This result is for medical treatment only. Analysis performed using non-forensic procedures. Performed By: #### L AB99, LAB17, LAB46 ####Lathe Turner: SHENA GUERIN ([id number])[facility] ([facility])[address] [place] [address] Ethanol (Bld) [Mass/Vol]on 0 06-18-2024 Ethanol [Mass/Vol] mg/dL NINF - 10 mg/dL [facility] Interpretation and review of laboratory results Normal [facility] BAKERY DEMONSTRATOR depression is se en >100 mg/dL. NOTE: This result is for medical treatment only. Analysis performed using non-forensic procedures. [facility] LIPASEon 06-18-2024 Lipase [Catalytic activity/Vol] 60 U/L High <55 [facility] Comment on above: Performed By: #### L AB99, LAB17, LAB46 ####Lathe Turner: SHENA GUERIN ([id number])[facility] (SBAB)[address] [place] [address] Laboratory - Chemistry and C hemistry - challengeon 06-18-2024 Lipase [Catalytic activity/Vol] 60 U/L High NINF - 55 U/L [facility] Lipase [Catalytic activity/V ol]on 06-18-2024 Interpretation and review of laboratory results Abnormal [facility] No Panel Informationon 06-[address] [facility] [address] ABDOMEN PELVIS W CONTRAST on 06-13-2024 CT ABDOMEN PELVIS W CONTRAST Normal [facility] CT Abdomen and Pelvis W cont rast Ellen 06-13-2024 1. Mild inflammatory changes about the pancreas. 2. Trace free fluid along Gerota's fascia on the left. 3. No loculated collections to suggest an abscess or organized pseudocyst. 4. Fatty liver. CT PELVIS: 3 mm axial cuts are obtained from the iliac crests through the symphysis pubis with 75 mL Isovue IV contrast. Dose reduction was employed with automated exposure control. The examination is compared to a previous study dated 05/30/2024. FINDINGS: There are nondistended loops of small bowel. Air and stool are identified within the colon to the level of the rectum. There is no evidence of obstruction. The distal ureters and bladder are normal. Trace free fluid is present in the dependent pelvis. IMPRESSION: 1. Mild inflammatory changes about the pancreas. 2. Trace free fluid along Gerota's fascia on the left and in the dependent pelvis. 3. No loculated collections to suggest an abscess or organized pseudocyst. 4. Fatty liver. Report Dictated on Electronically Signed By: Cedrick Pak MD Electronically Signed Date/Time: 06/13/2024 12:10 AM EDT [employer] [facility] 1985 [id number] Exam Date/Time: 06/12/2024 23:37 Procedure: CT ABDOMEN PELVIS W CONTRAST Ordering Provider: HILL JR, STEPHEN Reason For Exam: Pancreatitis, acute, severe; chronic pancreatitis CLINICAL INFORMATION: Abdominal pain extending into the pelvis. History of pancreatitis. CT ABDOMEN: 3 mm axial cuts are obtained from the dome of the liver through the iliac crests with 75 mL Isovue IV contrast. Dose reduction was employed with automated exposure control. The examination is compared to a previous study dated 05/30/2024. FINDINGS: The lung bases are included on the examination and demonstrate no focal infiltrates or effusions. The heart size is within normal limits. The liver is low in attenuation consistent with fatty infiltration. There are no focal hepatic lesions. There is no intra or extrahepatic biliary dilatation. The gallbladder is contracted. The spleen is normal in size. The pancreas enhances normally. Inflammatory changes are noted in the lesser sac and along Gerota's fascia on the left. There are no loculated collections to suggest an abscess or organized pseudocyst. Both adrenal glands are normal. The kidneys are identified in their cortical phase. There is no evidence of hydronephrosis or hydroureter. [facility] EM[facility]ENCY [facility] [employer] Cedrick Pak MD - 06/13/2024 [facility] Name: [facility] 1985 [id number] Exam Date/Time: 06/12/2024 23:37 Procedure: CT ABDOMEN PELVIS W CONTRAST Ordering Provider: HILL JR, STEPHEN Reason For Exam: Pancreatitis, acute, severe; chronic pancreatitis CLINICAL INFORMATION: Abdominal pain extending into the pelvis. History of pancreatitis. CT ABDOMEN: 3 mm axial cuts are obtained from the dome of the liver through the iliac crests with 75 mL Isovue IV contrast. Dose reduction was employed with automated exposure control. The examination is compared to a previous study dated 05/30/2024. FINDINGS: The lung bases are included on the examination and demonstrate no focal infiltrates or effusions. The heart size is within normal limits. The liver is low in attenuation consistent with fatty infiltration. There are no focal hepatic lesions. There is no intra or extrahepatic biliary dilatation. The gallbladder is contracted. The spleen is normal in size. The pancreas enhances normally. Inflammatory changes are noted in the lesser sac and along Gerota's fascia on the left. There are no loculated collections to suggest an abscess or organized pseudocyst. Both adrenal glands are normal. The kidneys are identified in their cortical phase. There is no evidence of hydronephrosis or hydroureter. IMPRESSION: 1. Mild inflammatory changes about the pancreas. 2. Trace free fluid along Gerota's fascia on the left. 3. No loculated collections to suggest an abscess or organized pseudocyst. 4. Fatty liver. CT PELVIS: 3 mm axial cuts are obtained from the iliac crests through the symphysis pubis with 75 mL Isovue IV contrast. Dose reduction was employed with automated exposure control. The examination is compared to a previous study dated 05/30/2024. FINDINGS: There are nondistended loops of small bowel. Air and stool are identified within the colon to the level of the rectum. There is no evidence of obstruction. The distal ureters and bladder are normal. Trace free fluid is present in the dependent pelvis. IMPRESSION: 1. Mild inflammatory changes about the pancreas. 2. Trace free fluid along Gerota's fascia on the left and in the dependent pelvis. 3. No loculated collections to suggest an abscess or organized pseudocyst. 4. Fatty liver. Report Dictated on Electronically Signed By: Cedrick Pak MD Electronically Signed Date/Time: 06/13/2024 12:10 AM EDT [facility] CT Abdomen and Pelvis W cont rast IVOrdered By: Cedrick Pak on 06-13-2024 [facility] Work Phone: CBC W Auto Differential pane l (Bld)on 06-12-2024 Basophils (Bld) [#/Vol] 0 10*3/uL 0.0 - 0.2 10*3/uL [facility] Basophils/100 WBC (Bld) 0.4 % 0.0 - 2.0 % [facility] Eosinophils (Bld) [#/Vol] 0.1 10*3/uL 0.0 - 0.5 10*3/uL [facility] Eosinophils/100 WBC (Bld) 0.9 % 0.0 - 6.0 % [facility] Erythrocyte distribution width (RBC) [Ratio] 14.4 % 11.5 - 15.0 % [facility] Hematocrit (Bld) [Volume fraction] 42.7 % 40.0 - 52.0 % [facility] Hemoglobin (Bld) [Mass/Vol] 14.1 g/dL 13.0 - 18.0 g/dL [facility] Immature granulocytes (Bld) [#/Vol] 0 10*3/uL NINF - 0.1 10*3/uL [facility] Immature granulocytes/100 WBC (Bld) 0.2 % 0.0 - 2.0 % [facility] Interpretation and review of laboratory results Abnormal [facility] Lymphocytes (Bld) [#/Vol] 2.4 10*3/uL 1.0 - 4.3 10*3/uL [facility] Lymphocytes/100 WBC (Bld) 26.5 % 15.0 - 45.0 % [facility] MCH (RBC) [Entitic mass] 30.5 pg 26.0 - 34.0 pg [facility] MCHC (RBC) [Mass/Vol] 33 % 30.5 - 36.0 % [facility] MCV (RBC) [Entitic vol] 92.2 fL 77.0 - 99.0 fL [facility] Monocytes (Bld) [#/Vol] 0.4 10*3/uL 0.0 - 0.9 10*3/uL [facility] Monocytes/100 WBC (Bld) 4.4 % Low 5.0 - 13.0 % [facility] Neutrophils (Bld) [#/Vol] 6 10*3/uL 1.8 - 7.5 10*3/uL [facility] Neutrophils/100 WBC (Bld) 67.6 % 38.0 - 82.0 % [facility] Nucleated RBC/100 WBC (Bld) [Ratio] 0 % [facility] Platelet mean volume (Bld) [Entitic vol] 10.2 fL 9.0 - 12.7 fL [facility] Comment on above: MPV is a calculated measurement using platelet volume ratio Platelets (Bld) [#/Vol] 349 10*3/uL 140 - 440 10*3/uL [facility] RBC (Bld) [#/Vol] 4.63 10*6/uL 4.40 - 5.9 0 10*6/uL [facility] WBC (Bld) [#/Vol] 8.9 10*3/uL 3.6 - 10.7 10*3/uL [facility] CBC WITH AUTO DIFFERENTIALon 06-12-2024 Basophils (Bld) [#/Vol] 0.0 10*3/uL Normal 0.0-0.2 [facility] Comment on above: Performed By: #### L [id number] ####Lathe Turner: SHENA GUERIN ([phone])[facility] rankdeskCENTRAL CAROLINA [email or web address] ([facility])[address] Basophils/100 WBC (Bld) 0.4 % Normal 0.0-2.0 [facility] Comment on above: Performed By: #### L [id number] ####Lathe Turner: SHENA GUERIN ([phone])[facility] MEDICAL [email or web address] [place] ([facility])[address] Eosinophils (Bld) [#/Vol] 0.1 10*3/uL Normal 0.0-0.5 [facility] Comment on above: Performed By: #### L [id number] ####Lathe Turner: SHENA GUERIN ([id number])[facility] CAMPUSA PHOENIX MEMORIAL HOSPITALITAGE [place] ([facility])[address] Eosinophils/100 WBC (Bld) 0.9 % Normal 0.0-6.0 [facility] Comment on above: Performed By: #### L [id number] ####Lathe Turner: SHENA CHAMPAGNEBETTY ([id number])[facility]ICAL CENTERGE [place] ([facility])[address] Erythrocyte distribution width (RBC) [Ratio] 14.4 % Normal 11.5-15.0 [facility] Comment on above: Performed By: #### L [id number] ####Lathe Turner: SHENA CHAMPAGNEBETTY ([id number])[facility] CENTERGE [place] ([facility])[address] Hematocrit (Bld) [Volume fraction] 42.7 % Normal 40.0-52.0 [facility] Comment on above: Performed By: #### L [id number] ####Lathe Turner: SHENA GUERIN ([phone])[facility] MEDICAL [email or web address] [place] ([facility])[address] Hemoglobin (Bld) [Mass/Vol] 14.1 g/dL Normal 13.0-18.0 [facility] Comment on above: Performed By: #### L [id number] ####Lathe Turner: SHENA GUERIN ([id number])[facility] S[facility]TH CAMPUSA rankdeskITAGE [place] ([facility])[address] IMMATURE GRANS % 0.2 % Normal 0.0-2.0 [facility] Comment on above: Performed By: #### L [id number] ####Lathe Turner: SHENA GUERIN ([id number])[facility] S[facility] CAMPUSA PHOENIX MEMORIAL HOSPITALITAGE [place] ([facility])[address] IMMATURE GRANS ABSOLUTE 0.0 10*3/uL Normal <0.1 [facility] Comment on above: Performed By: #### L [id number] ####Lathe Turner: SHENA GUERIN ([phone])[facility] SOUTH CAMPUSA [facility] ([facility])[address] Lymphocytes (Bld) [#/Vol] 2.4 10*3/uL Normal 1.0-4.3 [facility] Comment on above: Performed By: #### L [id number] ####Lathe Turner: SHENA GUERIN ([phone])[facility] S[facility]TH CAMPUSA [facility] ([facility])[address] Lymphocytes/100 WBC (Bld) 26.5 % Normal 15.0-45.0 [facility] Comment on above: Performed By: #### L [id number] ####Lathe Turner: SHENA GUERIN ([phone])[facility] CAMPUSA [facility] ([facility])[address] MCH (RBC) [Entitic mass] 30.5 pg Normal 26.0-34.0 [facility] Comment on above: Performed By: #### L [id number] ####Lathe Turner: SHENA GUERIN ([phone])[facility] CAMPUSA rankdeskITAGE [place] ([facility])[address] MCHC 33.0 % Normal 30.5-36.0 [facility] Comment on above: Performed By: #### L [id number] ####Lathe Turner: SHENA GUERIN ([id number])[facility] S[facility]TH CAMPUSA [facility] ([facility])[address] [place] [address] [place] MCV (RBC) [Entitic vol] 92.2 fL Normal 77.0-99.0 [facility] Comment on above: Performed By: #### L [id number] ####Lathe Turner: SHENA GUERIN ([id number])[facility] S[facility]TH CAMPUSA [facility] ([facility])[address] [place] [address] [facility] Monocytes (Bld) [#/Vol] 0.4 10*3/uL Normal 0.0-0.9 [facility] Comment on above: Performed By: #### L [id number] ####Lathe Turner: SHENA GUERIN ([phone])[facility] S[facility] CAMPUSA [facility] ([facility])[address] [place] [address] [place] Monocytes/100 WBC (Bld) 4.4 % Low 5.0-13.0 [facility] Comment on above: Performed By: #### L [id number] ####Lathe Turner: SHENA GUERIN ([id number])[facility] CAMPUSA [facility] ([facility])[address] [place] [address] [facility] NEUTROPHILS ABSOLUTE 6.0 10*3/uL Normal 1.8-7.5 [facility] Comment on above: Performed By: #### L [id number] ####Lathe Turner: SHENA GUERIN ([phone])[facility] SOUTH CAMPUSA rankdeskITAGE CROSSINGS ([facility] [place] [address] [place] Neutrophils/100 WBC (Bld) 67.6 % Normal 38.0-82.0 [facility] Comment on above: Performed By: #### L [id number] ####Lathe Turner: SHENA GUERIN ([phone])[facility] SOU[facility] CAMPUSA rankdeskITAGE CROSSINGS ([facility])[address] [place] [address] [facility] NRBC 0.0 /100 WBCs Normal 0.0-2.0 [facility] Comment on above: Performed By: #### L [id number] ####Lathe Turner: SHENA GUERIN ([phone])[facility] CAMPUSA rankdeskITAGE CROSSINGS ([facility])[address] [place] [address] [facility] Platelet mean volume (Bld) [Entitic vol] 10.2 fL Normal 9.0-12.7 [facility] Comment on above: Result Comment: MPV is a calculated measurement using platelet volume ratio Performed By: #### L [id number] ####Lathe Turner: SHENA GUERIN ([phone])[facility] [employer] ([facility])[address] Platelets (Bld) [#/Vol] 349 10*3/uL Normal 140-440 [facility] Comment on above: Performed By: #### L [id number] ####Lathe Turner: SHENA GUERIN ([id number])[facility] CR[facility] ([facility])[address] [place] [address] RBC (Bld) [#/Vol] 4.63 10*6/uL Normal 4.40-5.90 [facility] Comment on above: Performed By: #### L [id number] ####Lathe Turner: SHENA GUERIN ([id number])[facility] ([facility])[address] [place] [address] WBC (Bld) [#/Vol] 8.9 10*3/uL Normal 3.6-10.7 [facility] Comment on above: Performed By: #### L [id number] ####Lathe Turner: SHENA GUERIN ([phone])[facility] ([facility])[address] [place] [address] COMPREHENSIVE METABOLIC PANE Rylan 06-12-2024 Albumin [Mass/Vol] 3.9 g/dL Normal 3.5-5.0 [facility] Comment on above: Performed By: #### L AB103, LAB17, LAB99, LAB46 ####Lathe Turner: SHENA GUERIN ([phone])[facility] ([facility])[address] [place] [address] ALP [Catalytic activity/Vol] 176 U/L High 40-150 [facility] Comment on above: Performed By: #### L AB103, LAB17, LAB99, LAB46 ####Lathe Turner: SHENA GUERIN ([id number])[facility] CROSSINGS ([facility])[address] [place] [address] [place] ALT [Catalytic activity/Vol] 64 U/L High <40 [facility] Comment on above: Performed By: #### L AB103, LAB17, LAB99, LAB46 ####Lathe Turner: SHENA GUERIN ([id number])[facility] CR[facility] ([facility])[address] [place] [address] [facility] Anion gap [Moles/Vol] 14 mmol/L High 3-13 [facility] Comment on above: Performed By: #### Iggy AB103, LAB17, LAB99, LAB46 ####Lathe Turner: SHENA GUERIN ([phone])[facility] CROSSINGS ([facility])[address] [place] [address] [place] AST [Catalytic activity/Vol] 104 U/L High <34 [facility] Comment on above: Performed By: #### L AB103, LAB17, LAB99, LAB46 ####Lathe Turner: SHENA GUERIN ([phone])[facility] CROSSINGS ([facility])[address] [place] [address] [place] Bilirubin [Mass/Vol] 0.8 mg/dL Normal <1.2 [facility] Comment on above: Performed By: #### L AB103, LAB17, LAB99, LAB46 ####Lathe Turner: SHENA GUERIN ([phone])[facility] CROSSINGS ([facility])[address] [place] [address] [place] Calcium [Mass/Vol] 9.5 mg/dL Normal 8.4-10.2 [facility] Comment on above: Performed By: #### L AB103, LAB17, LAB99, LAB46 ####Lathe Turner: SHENA GUERIN ([id number])[facility] ([facility])[address] [place] [address] [place] Chloride [Moles/Vol] 105 mmol/L Normal 98-107 [facility] Comment on above: Performed By: #### Iggy ABSriram, LAB17, LAB99, LAB46 ####Lathe Turner: SHENA GUERIN ([phone])[facility] CR[facility] ([facility])[address] [place] [address] [facility] CO2 [Moles/Vol] 24 mmol/L Normal 22-29 [facility] Comment on above: Performed By: #### Iggy ABSriram, LAB17, LAB99, LAB46 ####Lathe Turner: SHENA GUERIN ([id number])[facility] CR[facility] ([facility])[address] [place] [id number] [facility] Creatinine [Mass/Vol] 0.71 mg/dL Low 0.72-1.25 [facility] Comment on above: Performed By: #### Iggy MCDONALD, LAB17, LAB99, LAB46 ####Lathe Turner: SHENA GUERIN ([phone])[facility] ([facility])[address] [place] [address] [facility] GLOMERULAR FILTRATION RATE ML/MIN/1.73 SQ M.PREDICTED >90.0 Normal >60.0 [facility] Comment on above: Result Comment: Calc ulation based on the Chronic Kidney Disease Epidemiology Collaboration (CKD-EPI) equation refit without adjustment for race Performed By: #### Iggy MCDONALD, LAB17, LAB99, LAB46 ####Lathe Turner: SHENA GUERIN ([phone])[facility] ([facility])[address] [place] [address] [place] Glucose [Mass/Vol] 107 mg/dL High 74-100 [facility] Comment on above: Performed By: #### Iggy AB103, LAB17, LAB99, LAB46 ####Lathe Turner: SHENA GUERIN ([id number])[facility] ([facility])[address] [place] [address] [place] Potassium [Moles/Vol] 3.9 mmol/L Normal 3.5-5.1 [facility] Comment on above: Result Comment: [facility] potassium values may be up to 0.5 mmol/L lower than serum values. Performed By: #### L AB103, LAB17, LAB99, LAB46 ####Lathe Turner: SHENA GUERIN ([phone])[facility] ([facility])[address] [place] [address] [facility] Protein [Mass/Vol] 8.2 g/dL Normal 6.4-8.3 [facility] Comment on above: Performed By: #### L AB103, LAB17, LAB99, LAB46 ####Lathe Turner: SHENA GUERIN ([phone])[facility] ([facility])[address] [place] [address] [facility] Sodium [Moles/Vol] 143 mmol/L Normal 136-145 [facility] Comment on above: Performed By: #### L AB103, LAB17, LAB99, LAB46 ####Lathe Turner: SHENA GUERIN ([phone])[facility] ([facility])[address] [place] [address] Urea nitrogen [Mass/Vol] 3 mg/dL Low 8-21 [facility] Comment on above: Performed By: #### L AB103, LAB17, LAB99, LAB46 ####Lathe Turner: SHENA GUERIN ([phone])[facility] ([facility])[address] [place] [id number] [facility] CT Abdomen and Pelvis W cont rast Ellen 06-12-2024 Radiology Study observation (narrative) [facility] Comprehensive metabolic 1998 panelon 06-12-2024 Albumin [Mass/Vol] 3.9 g/dL 3.5 - 5.0 g/dL [facility] ALP [Catalytic activity/Vol] 176 U/L High 40 - 150 U/L [facility] ALT [Catalytic activity/Vol] 64 U/L High NINF - 40 U/L [facility] Anion gap [Moles/Vol] 14 mmol/L High 3 - 13 mmol/L [facility] AST [Catalytic activity/Vol] 104 U/L High NINF - 34 U/L [facility] Bilirubin [Mass/Vol] 0.8 mg/dL NINF - 1.2 mg/dL [facility] Calcium [Mass/Vol] 9.5 mg/dL 8.4 - 10. 2 mg/dL [facility] Chloride [Moles/Vol] 105 mmol/L 98 - 10 7 mmol/L [facility] CO2 [Moles/Vol] 24 mmol/L 22 - 29 mmol/L [facility] Creatinine [Mass/Vol] 0.71 mg/dL Low 0.72 - 1.25 mg/dL [facility] GFR/1.73 sq M.predicted (S/P/Bld) [Vol rate/Area] - PINF [facility] Comment on above: Calculation based on the Chronic Kidney Disease Epidemiology Collaboration (CKD-EPI) equation refit without adjustment for race Glucose [Mass/Vol] 107 mg/dL High 74 - 100 mg/dL [facility] Potassium [Moles/Vol] 3.9 mmol/L 3.5 - 5.1 mmol/L [facility] Comment on above: Plasma potassium víctor ues may be up to 0.5 mmol/L lower than serum values. Protein [Mass/Vol] 8.2 g/dL 6.4 - 8.3 g/dL [facility] Sodium [Moles/Vol] 143 mmol/L 136 - 145 mmol/L [facility] Urea nitrogen [Mass/Vol] 3 mg/dL Low 8 - 21 mg/dL [facility] ED Provider Noteon ED Provider Note Normal [facility] ETHANOLon 06-12-2024 ETHANOL IN SER/PLAS 43 mg/dL High <10 [facility] Comment on above: Result Comment: ORDE R COMMENTS: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NOTE: This result is for medical treatment only. Analysis performed using non-forensic procedures. Performed By: #### L AB103, LAB17, LAB99, LAB46 ####Lathe Turner: SHENA GUERIN ([phone])[facility] ([facility])[address] [place] [address] Ethanol (Bld) [Mass/Vol]on 0 06-12-2024 Ethanol [Mass/Vol] 43 mg/dL High NINF - 10 mg/dL [facility] BAKERY DEMONSTRATOR depression is se en >100 mg/dL. NOTE: This result is for medical treatment only. Analysis performed using non-forensic procedures. [facility] LIPASEon 06-12-2024 Lipase [Catalytic activity/Vol] 48 U/L Normal <55 [facility] Comment on above: Performed By: #### L AB103, LAB17, LAB99, LAB46 ####Lathe Turner: SHENA GUERIN ([id number])[facility] ([facility])[address] Laboratory - Chemistry and C hemistry - challengeon 06-12-2024 Lipase [Catalytic activity/Vol] 48 U/L NINF - 55 U/L [facility] Magnesium [Mass/Vol] 2 mg/dL 1.6 - 2 .6 mg/dL [facility] MAGNESIUMon 06-12-2024 Magnesium [Mass/Vol] 2.0 mg/dL Normal 1.6-2.6 [facility] Comment on above: Result Comment: PIEDAD R COMMENTS:Higher values can be expected in females during menses. Performed By: #### L AB103, LAB17, LAB99, LAB46 ####Lathe Turner: SHENA GUERIN ([phone])[facility] ([facility])[address] Magnesium [Mass/Vol]on 06-12 Higher values can be expected in females during menses. [facility] No Panel Informationon 06-12 Interpretation and review of laboratory results Abnormal [facility] Interpretation and review of laboratory results Normal [facility] BASIC METABOLIC PANELon 05-11 Anion gap [Moles/Vol] 17 mmol/L High 3-13 [facility] Comment on above: Performed By: #### L AB20, LAB15, LAB99 ####Lathe Turner: SHENA GUERIN ([phone])[facility] ([facility])[address] [place] [address] [facility] Calcium [Mass/Vol] 9.7 mg/dL Normal 8.4-10.2 [facility] Comment on above: Performed By: #### Iggy AB20, LAB15, LAB99 ####Lathe Turner: SHENA GUERIN ([phone])[facility] ([facility])[address] [place] [address] [place] Chloride [Moles/Vol] 101 mmol/L Normal 98-107 [facility] Comment on above: Performed By: #### L AB20, LAB15, LAB99 ####Lathe Turner: SHENA GUERIN ([phone])[facility] ([facility])[address] CO2 [Moles/Vol] 22 mmol/L Normal 22-29 [facility] Comment on above: Performed By: #### Iggy AB20, LAB15, LAB99 ####Lathe Turner: SHENA GUERIN ([phone])[facility] ([facility])[address] [place] [address] [place] Creatinine [Mass/Vol] 0.66 mg/dL Low 0.72-1.25 [facility] Comment on above: Performed By: #### L AB20, LAB15, LAB99 ####Lathe Turner: SHENA GUERIN ([phone])[facility] ([facility])[address] [place] [address] [facility] GLOMERULAR FILTRATION RATE ML/MIN/1.73 SQ M.PREDICTED >90.0 Normal >60.0 [facility] Comment on above: Result Comment: Calc ulation based on the Chronic Kidney Disease Epidemiology Collaboration (CKD-EPI) equation refit without adjustment for race Performed By: #### L AB20, LAB15, LAB99 ####Lathe Turner: SHENA GUERIN ([phone])[facility] ([facility])[address] [place] [id number] [place] Glucose [Mass/Vol] 127 mg/dL High 74-100 [facility] Comment on above: Performed By: #### L AB20, LAB15, LAB99 ####Lathe Turner: SHENA GUERIN ([phone])[facility] ([facility])[address] [place] [address] [facility] Potassium [Moles/Vol] 3.4 mmol/L Low 3.5-5.1 [facility] Comment on above: Result Comment: [facility] potassium values may be up to 0.5 mmol/L lower than serum values. Performed By: #### L AB20, LAB15, LAB99 ####Lathe Turner: SHENA GUERIN ([id number])[facility] ([facility])[address] [place] [address] [facility] Sodium [Moles/Vol] 140 mmol/L Normal 136-145 [facility] Comment on above: Performed By: #### L AB20, LAB15, LAB99 ####Lathe Turner: SHENA GUERIN ([phone])[facility] ([facility])[address] [place] [address] [facility] Urea nitrogen [Mass/Vol] 7 mg/dL Low 8-21 [facility] Comment on above: Performed By: #### L AB20, LAB15, LAB99 ####Lathe Turner: SHENA GUERIN ([id number])[facility] ([facility])[address] [place] [id number] [facility] Basic metabolic 1998 panelon 06-04-2024 Anion gap [Moles/Vol] 17 mmol/L High 3 - 13 mmol/L [facility] Calcium [Mass/Vol] 9.7 mg/dL 8.4 - 10. 2 mg/dL [facility] Chloride [Moles/Vol] 101 mmol/L 98 - 10 7 mmol/L [facility] CO2 [Moles/Vol] 22 mmol/L 22 - 29 mmol/L [facility] Creatinine [Mass/Vol] 0.66 mg/dL Low 0.72 - 1.25 mg/dL [facility] GFR/1.73 sq M.predicted (S/P/Bld) [Vol rate/Area] - PINF [facility] Comment on above: Calculation based on the Chronic Kidney Disease Epidemiology Collaboration (CKD-EPI) equation refit without adjustment for race Glucose [Mass/Vol] 127 mg/dL High 74 - 100 mg/dL [facility] Potassium [Moles/Vol] 3.4 mmol/L Low 3.5 - 5.1 mmol/L [facility] Comment on above: Plasma potassium víctor ues may be up to 0.5 mmol/L lower than serum values. Sodium [Moles/Vol] 140 mmol/L 136 - 145 mmol/L [facility] Urea nitrogen [Mass/Vol] 7 mg/dL Low 8 - 21 mg/dL [facility] CBC W Auto Differential pane l (Bld)on 06-04-2024 Basophils (Bld) [#/Vol] 0.1 10*3/uL 0.0 - 0.2 10*3/uL [facility] Basophils/100 WBC (Bld) 0.7 % 0.0 - 2.0 % [facility] Eosinophils (Bld) [#/Vol] 0.1 10*3/uL 0.0 - 0.5 10*3/uL [facility] Eosinophils/100 WBC (Bld) 1.5 % 0.0 - 6.0 % [facility] Erythrocyte distribution width (RBC) [Ratio] 14.6 % 11.5 - 15.0 % [facility] Hematocrit (Bld) [Volume fraction] 43.2 % 40.0 - 52.0 % [facility] Hemoglobin (Bld) [Mass/Vol] 14.2 g/dL 13.0 - 18.0 g/dL [facility] Immature granulocytes (Bld) [#/Vol] 0 10*3/uL NINF - 0.1 10*3/uL [facility] Immature granulocytes/100 WBC (Bld) 0.3 % 0.0 - 2.0 % [facility] Interpretation and review of laboratory results Normal [facility] Lymphocytes (Bld) [#/Vol] 1.9 10*3/uL 1.0 - 4.3 10*3/uL [facility] Lymphocytes/100 WBC (Bld) 26.3 % 15.0 - 45.0 % [facility] MCH (RBC) [Entitic mass] 30.6 pg 26.0 - 34.0 pg [facility] MCHC (RBC) [Mass/Vol] 32.9 % 30.5 - 36.0 % [facility] MCV (RBC) [Entitic vol] 93.1 fL 77.0 - 99.0 fL [facility] Monocytes (Bld) [#/Vol] 0.5 10*3/uL 0.0 - 0.9 10*3/uL [facility] Monocytes/100 WBC (Bld) 7.1 % 5.0 - 13.0 % [facility] Neutrophils (Bld) [#/Vol] 4.7 10*3/uL 1.8 - 7.5 10*3/uL [facility] Neutrophils/100 WBC (Bld) 64.1 % 38.0 - 82.0 % [facility] Nucleated RBC/100 WBC (Bld) [Ratio] 0 % [facility] Platelet mean volume (Bld) [Entitic vol] 10.1 fL 9.0 - 12.7 fL [facility] Comment on above: MPV is a calculated measurement using platelet volume ratio Platelets (Bld) [#/Vol] 281 10*3/uL 140 - 440 10*3/uL [facility] RBC (Bld) [#/Vol] 4.64 10*6/uL 4.40 - 5.9 0 10*6/uL [facility] WBC (Bld) [#/Vol] 7.3 10*3/uL 3.6 - 10.7 10*3/uL [facility] CBC WITH AUTO DIFFERENTIALon 06-04-2024 Basophils (Bld) [#/Vol] 0.1 10*3/uL Normal 0.0-0.2 [facility] Comment on above: Performed By: #### L [id number] ####Lathe Turner: SHENA GUERIN ([phone])[facility] [employer] ([facility])[address] [place] [address] Basophils/100 WBC (Bld) 0.7 % Normal 0.0-2.0 [facility] Comment on above: Performed By: #### L [id number] ####Lathe Turner: SHENA GUERIN ([phone])[facility] [employer] ([facility])[address] Eosinophils (Bld) [#/Vol] 0.1 10*3/uL Normal 0.0-0.5 [facility] Comment on above: Performed By: #### L [id number] ####Lathe Turner: SHENA GUERIN ([phone])[facility] CAMPUSA [facility]ITAL[facility] ([facility])[address] Eosinophils/100 WBC (Bld) 1.5 % Normal 0.0-6.0 [facility] Comment on above: Performed By: #### L [id number] ####Lathe Turner: SHENA GUERIN ([phone])[facility] [email or web address] CROSSINGS ([facility])[address] Erythrocyte distribution width (RBC) [Ratio] 14.6 % Normal 11.5-15.0 [facility] Comment on above: Performed By: #### L [id number] ####Lathe Turner: SHENA GUERIN ([phone])[facility] [employer] CROSSINGS ([facility])[address] Hematocrit (Bld) [Volume fraction] 43.2 % Normal 40.0-52.0 [facility] Comment on above: Performed By: #### L [id number] ####Lathe Turner: SHENA GUERIN ([id number])[facility] [email or web address] CROSSINGS ([facility])[address] Hemoglobin (Bld) [Mass/Vol] 14.2 g/dL Normal 13.0-18.0 [facility] Comment on above: Performed By: #### L [id number] ####Lathe Turner: SHENA GUERIN ([id number])[facility] [employer] CROSSINGS ([facility])[address] IMMATURE GRANS % 0.3 % Normal 0.0-2.0 [facility] Comment on above: Performed By: #### L [id number] ####Lathe Turner: SHENA CHAMPAGNEBETTY ([id number])[facility] S[facility]TH CAMPUSA rankdeskITAGE CROSSINGS ([facility])[address] IMMATURE GRANS ABSOLUTE 0.0 10*3/uL Normal <0.1 [facility] Comment on above: Performed By: #### L [id number] ####Lathe Turner: SHENA CHAMPAGNEBETTY ([id number])[facility] S[facility] CAMPUSA rankdeskITAGE CROSSINGS ([facility])[address] Lymphocytes (Bld) [#/Vol] 1.9 10*3/uL Normal 1.0-4.3 [facility] Comment on above: Performed By: #### L [id number] ####Lathe Turner: SHENA CHAMPAGNEBETTY ([id number])[facility] S[facility] CAMPUSA rankdeskITAGE CROSSINGS ([facility])[address] Lymphocytes/100 WBC (Bld) 26.3 % Normal 15.0-45.0 [facility] Comment on above: Performed By: #### L [id number] ####Lathe Turner: SHENA CHAMPAGNEBETTY ([id number])[facility] S[facility] CAMPUSA rankdeskITAGE CROSSINGS ([facility])[address] MCH (RBC) [Entitic mass] 30.6 pg Normal 26.0-34.0 [facility] Comment on above: Performed By: #### L [id number] ####Lathe Turner: SHENA CHAMPAGNEBETTY ([id number])[facility] CAMPUSA rankdeskITAGE [facility] ([facility] MCHC 32.9 % Normal 30.5-36.0 [facility] Comment on above: Performed By: #### L [id number] ####Lathe Turner: SHENA GUERIN ([id number])[facility] S[facility] CAMPUSA rankdeskITAGE [facility] ([facility])[address] MCV (RBC) [Entitic vol] 93.1 fL Normal 77.0-99.0 [facility] Comment on above: Performed By: #### L [id number] ####Lathe Turner: SHENA GUERIN ([id number])[facility] ([facility] [place] [address] [facility] Monocytes (Bld) [#/Vol] 0.5 10*3/uL Normal 0.0-0.9 [facility] Comment on above: Performed By: #### L [id number] ####Lathe Turner: SHENA GUERIN ([id number])[facility] S[facility]TH CAMPUSA [facility] ([facility])[address] [place] [address] [facility] Monocytes/100 WBC (Bld) 7.1 % Normal 5.0-13.0 [facility] Comment on above: Performed By: #### L [id number] ####Lathe Turner: SHENA GUERIN ([phone])[facility] S[facility]TH CAMPUSA [facility] ([facility])[address] [place] [address] [facility] NEUTROPHILS ABSOLUTE 4.7 10*3/uL Normal 1.8-7.5 [facility] Comment on above: Performed By: #### L [id number] ####Lathe Turner: SHENA GUERIN ([id number])[facility] S[facility]TH CAMPUSA rankdeskITAGE [facility] ([facility])[address] [place] [address] [place] Neutrophils/100 WBC (Bld) 64.1 % Normal 38.0-82.0 [facility] Comment on above: Performed By: #### L [id number] ####Lathe Turner: SHENA GUERIN ([phone])[facility] S[facility]TH CAMPUSA [facility] [place] [address] [place] NRBC 0.0 /100 WBCs Normal 0.0-2.0 [facility] Comment on above: Performed By: #### L [id number] ####Lathe Turner: SHENA GUERIN ([phone])[facility] [employer] [facility] ([facility] [place], [place] [id number] [place] [address] Platelet mean volume (Bld) [Entitic vol] 10.1 fL Normal 9.0-12.7 [facility] Comment on above: Result Comment: MPV is a calculated measurement using platelet volume ratio Performed By: #### L [id number] ####Lathe Turner: SHENA GUERIN ([id number])[facility] rankdeskCENTRAL CAROLINA [email or web address] [facility] ([facility])[address] Platelets (Bld) [#/Vol] 281 10*3/uL Normal 140-440 [facility] Comment on above: Performed By: #### L [id number] ####Lathe Turner: SHENA GUERIN ([phone])[email or web address] ([facility])[address] RBC (Bld) [#/Vol] 4.64 10*6/uL Normal 4.40-5.90 [facility] Comment on above: Performed By: #### L [id number] ####Lathe Turner: SHENA GUERIN ([id number])[facility] rankdeskCENTRAL CAROLINA [email or web address] ([facility])[address] WBC (Bld) [#/Vol] 7.3 10*3/uL Normal 3.6-10.7 [facility] Comment on above: Performed By: #### L [id number] ####Lathe Turner: SHENA GUERIN ([phone])[facility] rankdeskCENTRAL [email or web address] ([facility])[address] ED Nursing Noteon 06-04-2024 ED Nursing Note Pt seen recently, dx pancreatitis, sts sx ongoing with abd pain that worsens with eating/drinking, N/V. Referred to ER by Negative resp distress, positive full sentences, negative diaphoresis, positive steady gait. Times are approximate. Normal [facility] ED Provider Noteon ED Provider Note Normal [facility] HEPATIC FUNCTION PANELon Albumin [Mass/Vol] 3.9 g/dL Normal 3.5-5.0 [facility] Comment on above: Performed By: #### L AB20, LAB15, LAB99 ####Lathe Turner: SHENA CHAMPAGNEBETTY ([id number])[facility] ([facility])[address] [place] [address] [place] ALP [Catalytic activity/Vol] 226 U/L High 40-150 [facility] Comment on above: Performed By: #### L AB20, LAB15, LAB99 ####Lathe Turner: SHENA GUERIN ([id number])[facility] ([facility])[address] [place] [address] [place] ALT [Catalytic activity/Vol] 73 U/L High <40 [facility] Comment on above: Performed By: #### L AB20, LAB15, LAB99 ####Lathe Turner: SHENA GUERIN ([phone])[facility] [place] [address] [place] AST [Catalytic activity/Vol] 104 U/L High <34 [facility] Comment on above: Performed By: #### L AB20, LAB15, LAB99 ####Lathe Turner: SHENA GUERIN ([id number])[facility] ([facility])[address] [place] [address] [place] Bilirubin [Mass/Vol] 1.4 mg/dL High <1.2 [facility] Comment on above: Performed By: #### L AB20, LAB15, LAB99 ####Lathe Turner: SHENA GUERIN ([phone])[facility] ([facility])[address] [place] [address] [place] Bilirubin.indirect [Mass/Vol] 0.9 mg/dL High <0.5 [facility] Comment on above: Performed By: #### L AB20, LAB15, LAB99 ####Lathe Turner: SHENA GUERIN ([phone])[facility] ([facility])[address] [place] [address] [facility] Protein [Mass/Vol] 8.3 g/dL Normal 6.4-8.3 [facility] Comment on above: Result Comment: Seru m protein values are higher than plasma values. Samples from recumbent persons are lower by up to 0.5 g/dL as compared to ambulatory persons. After 60 years values are lower by up to 0.2 g/dL. Performed By: #### L AB20, LAB15, LAB99 ####Lathe Turner: SHENA DEL ROSARIOHAMIDA ([id number])[facility] ([facility])[address] [place] [address] [facility] Hepatic function 2000 panelo n 06-04-2024 Albumin [Mass/Vol] 3.9 g/dL 3.5 - 5.0 g/dL [facility] ALP [Catalytic activity/Vol] 226 U/L High 40 - 150 U/L [facility] ALT [Catalytic activity/Vol] 73 U/L High NINF - 40 U/L [facility] AST [Catalytic activity/Vol] 104 U/L High NINF - 34 U/L [facility] Bilirubin [Mass/Vol] 1.4 mg/dL [facility] Bilirubin.conjugated [Mass/Vol] 0.9 mg/dL High [facility] 0.[facility] mg/dL [facility] Protein [Mass/Vol] 8.3 g/dL 6.4 - 8.3 g/dL [facility] Comment on above: Serum protein values are higher than plasma values. Samples from recumbent persons are lower by up to 0.5 g/dL as compared to ambulatory persons. After 60 years values are lower by up to 0.2 g/dL. LIPASEon 06-04-2024 Lipase [Catalytic activity/Vol] 117 U/L High <55 [facility] Comment on above: Performed By: #### L AB20, LAB15, LAB99 ####Lathe Turner: SHENA GUERIN ([phone])[facility] ([facility])[address] [place] [address] [facility] Laboratory - Chemistry and C hemistry - challengeon 06-04-2024 Lipase [Catalytic activity/Vol] 117 U/L High NINF - 55 U/L [facility] No Panel Informationon 06-04 Interpretation and review of laboratory results Abnormal [facility] 36on 06-03-2024 36 Normal [facility] 36 Normal [facility] 36 Normal [facility] 37on 06-01-2024 37 --complete alcohol cessation --tobacco cessation --MRI abdomen --blood work to be completed --follow up after above is completed Normal [facility] Progress Noteon 06-01-2024 Progress Note Normal [facility] CBC W Auto Differential pane l (Bld)on 05-30-2024 Basophils (Bld) [#/Vol] 0.1 10*3/uL 0.0 - 0.2 10*3/uL [facility] Basophils/100 WBC (Bld) 0.7 % 0.0 - 2.0 % [facility] Eosinophils (Bld) [#/Vol] 0.1 10*3/uL 0.0 - 0.5 10*3/uL [facility] Eosinophils/100 WBC (Bld) 1.3 % 0.0 - 6.0 % [facility] Erythrocyte distribution width (RBC) [Ratio] 14.6 % 11.5 - 15.0 % [facility] Hematocrit (Bld) [Volume fraction] 40.4 % 40.0 - 52.0 % [facility] Hemoglobin (Bld) [Mass/Vol] 13.5 g/dL 13.0 - 18.0 g/dL [facility] Immature granulocytes (Bld) [#/Vol] 0 10*3/uL NINF - 0.1 10*3/uL [facility] Immature granulocytes/100 WBC (Bld) 0.3 % 0.0 - 2.0 % [facility] Interpretation and review of laboratory results Normal [facility] Lymphocytes (Bld) [#/Vol] 2.5 10*3/uL 1.0 - 4.3 10*3/uL [facility] Lymphocytes/100 WBC (Bld) 33 % 15.0 - 45.0 % [facility] MCH (RBC) [Entitic mass] 30.3 pg 26.0 - 34.0 pg [facility] MCHC (RBC) [Mass/Vol] 33.4 % 30.5 - 36.0 % [facility] MCV (RBC) [Entitic vol] 90.8 fL 77.0 - 99.0 fL [facility] Monocytes (Bld) [#/Vol] 0.7 10*3/uL 0.0 - 0.9 10*3/uL [facility] Monocytes/100 WBC (Bld) 8.8 % 5.0 - 13.0 % [facility] Neutrophils (Bld) [#/Vol] 4.2 10*3/uL 1.8 - 7.5 10*3/uL [facility] Neutrophils/100 WBC (Bld) 55.9 % 38.0 - 82.0 % [facility] Nucleated RBC/100 WBC (Bld) [Ratio] 0 % [facility] Platelet mean volume (Bld) [Entitic vol] 10.2 fL 9.0 - 12.7 fL [facility] Comment on above: MPV is a calculated measurement using platelet volume ratio Platelets (Bld) [#/Vol] 234 10*3/uL 140 - 440 10*3/uL [facility] RBC (Bld) [#/Vol] 4.45 10*6/uL 4.40 - 5.9 0 10*6/uL [facility] WBC (Bld) [#/Vol] 7.5 10*3/uL 3.6 - 10.7 10*3/uL [facility] CBC WITH AUTO DIFFERENTIALon 05-30-2024 Basophils (Bld) [#/Vol] 0.1 10*3/uL Normal 0.0-0.2 [facility] Comment on above: Performed By: #### L [id number] ####Lathe Turner: SHENA GUERIN ([phone])[facility] ([facility])[address] [place] [address] Basophils/100 WBC (Bld) 0.7 % Normal 0.0-2.0 [facility] Comment on above: Performed By: #### L [id number] ####Lathe Turner: SHENA GUERIN ([id number])[facility] CAMPUSA [facility] ([facility] Eosinophils (Bld) [#/Vol] 0.1 10*3/uL Normal 0.0-0.5 [facility] Comment on above: Performed By: #### L [id number] ####Lathe Turner: SHENA GUERIN ([id number])[facility] ([facility])[address] Eosinophils/100 WBC (Bld) 1.3 % Normal 0.0-6.0 [facility] Comment on above: Performed By: #### L [id number] ####Lathe Turner: SHENA GUERIN ([id number])[facility] [email or web address] [facility] ([facility])[address] Erythrocyte distribution width (RBC) [Ratio] 14.6 % Normal 11.5-15.0 [facility] Comment on above: Performed By: #### L [id number] ####Lathe Turner: SHENA GUERIN ([id number])[facility] [email or web address] [facility] ([facility])[address] Hematocrit (Bld) [Volume fraction] 40.4 % Normal 40.0-52.0 [facility] Comment on above: Performed By: #### L [id number] ####Lathe Turner: SHENA GUERIN ([id number])[facility] ([facility])[address] Hemoglobin (Bld) [Mass/Vol] 13.5 g/dL Normal 13.0-18.0 [facility] Comment on above: Performed By: #### L [id number] ####Lathe Turner: SHENA GUERIN ([id number])[facility] ([facility])[address] IMMATURE GRANS % 0.3 % Normal 0.0-2.0 [facility] Comment on above: Performed By: #### L [id number] ####Lathe Turner: SHENA GUERIN ([id number])[facility] S[facility] CAMPUSA rankdeskITAGE [facility] ([facility])[address] IMMATURE GRANS ABSOLUTE 0.0 10*3/uL Normal <0.1 [facility] Comment on above: Performed By: #### L [id number] ####Lathe Turner: SHENA GUERIN ([id number])[facility] SOU[facility] CAMPUSA [facility] ([facility])[address] Lymphocytes (Bld) [#/Vol] 2.5 10*3/uL Normal 1.0-4.3 [facility] Comment on above: Performed By: #### L [id number] ####Lathe Turner: SHENA GUERIN ([id number])[facility] S[facility] CAMPUSA rankdeskITAGE [facility] ([facility])[address] Lymphocytes/100 WBC (Bld) 33.0 % Normal 15.0-45.0 [facility] Comment on above: Performed By: #### L [id number] ####Lathe Turner: SHENA GUERIN ([id number])[facility] S[facility] CAMPUSA rankdeskITAGE [facility] ([facility])[address] MCH (RBC) [Entitic mass] 30.3 pg Normal 26.0-34.0 [facility] Comment on above: Performed By: #### L [id number] ####Lathe Turner: SHENA GUERIN ([id number])[facility] S[facility] CAMPUSA rankdeskITAGE [facility] ([facility])[address] MCHC 33.4 % Normal 30.5-36.0 [facility] Comment on above: Performed By: #### L [id number] ####Lathe Turner: SHENA GUERIN ([id number])[facility] S[facility] CAMPUSA rankdeskITAGE [facility] ([facility])[address] [place] [address] [place] MCV (RBC) [Entitic vol] 90.8 fL Normal 77.0-99.0 [facility] Comment on above: Performed By: #### L [id number] ####Lathe Turner: SHENA GUERIN ([id number])[facility] ([facility] [place] [address] [facility] Monocytes (Bld) [#/Vol] 0.7 10*3/uL Normal 0.0-0.9 [facility] Comment on above: Performed By: #### L [id number] ####Lathe Turner: SHENA GUERIN ([id number])[facility] ([facility])[address] Monocytes/100 WBC (Bld) 8.8 % Normal 5.0-13.0 [facility] Comment on above: Performed By: #### L [id number] ####Lathe Turner: SHENA GUERIN ([id number])[facility] S[facility] CAMPUSA [facility] [place] [address] [place] NEUTROPHILS ABSOLUTE 4.2 10*3/uL Normal 1.8-7.5 [facility] Comment on above: Performed By: #### L [id number] ####Lathe Turner: SHENA GUERIN ([id number])[facility] S[facility] CAMPUSA [facility] ([facility] [place] [address] [place] Neutrophils/100 WBC (Bld) 55.9 % Normal 38.0-82.0 [facility] Comment on above: Performed By: #### L [id number] ####Lathe Turner: SHENA GUERIN ([id number])[facility] CAMPUSA [facility] ([facility])[address] [place] [address] [place] NRBC 0.0 /100 WBCs Normal 0.0-2.0 [facility] Comment on above: Performed By: #### L [id number] ####Lathe Turner: SHENA GUERIN ([id number])[facility] CENTERTeikonS ([facility])[address] [place], [place] [address] [place] [address] Platelet mean volume (Bld) [Entitic vol] 10.2 fL Normal 9.0-12.7 [facility] Comment on above: Result Comment: MPV is a calculated measurement using platelet volume ratio Performed By: #### L [id number] ####Lathe Turner: SHENA GUERIN ([id number])[facility] ([facility])[address] Platelets (Bld) [#/Vol] 234 10*3/uL Normal 140-440 [facility] Comment on above: Performed By: #### L [id number] ####Lathe Turner: SHENA GUERIN ([id number])[facility] Support[employer] ([facility])[address] RBC (Bld) [#/Vol] 4.45 10*6/uL Normal 4.40-5.90 [facility] Comment on above: Performed By: #### L [id number] ####Lathe Turner: SHENA GUERIN ([id number])[facility] ([facility])[address] WBC (Bld) [#/Vol] 7.5 10*3/uL Normal 3.6-10.7 [facility] Comment on above: Performed By: #### L [id number] ####Lathe Turner: SHENA GUERIN ([phone])[facility] [employer] ([facility])[address] COMPLETE URINALYSISon 2024 BACTERIA (#/HPF) IN URINE Negative Normal Negative [facility] Comment on above: Performed By: #### L [id number] ####Lathe Turner: SHENA GUERIN ([id number])[facility] ([facility])[address] [place] [address] [facility] BILIRUBIN, TOTAL PRESENCE IN URINE Negative Normal Negative [facility] Comment on above: Performed By: #### L [id number] ####Lathe Turner: SHENA UNDERWOODCER ([id number])[facility] ([facility] [place] [address] [facility] Clarity (U) Clear Normal Clear [facility] Comment on above: Performed By: #### L [id number] ####Lathe Turner: SHENA GUERIN ([id number])[facility] ([facility])[address] [place], [place] [address] [facility] Color (U) Yellow Normal Lt. Yellow [facility] Comment on above: Performed By: #### L [id number] ####Lathe Turner: SHENA CHAMPAGNEBETTY ([id number])[facility] ([facility])[address] GLUCOSE (MG/DL) IN URINE Normal Normal Normal (<70) [facility] Comment on above: Performed By: #### L [id number] ####Lathe Turner: SHENA GUERIN ([id number])[facility] ([facility])[address] [place] [address] [place] HEMOGLOBIN PRESENCE IN URINE Negative Normal Negative [facility] Comment on above: Performed By: #### L [id number] ####Lathe Turner: SHENA GUERIN ([id number])[facility] ([facility])[address] [place] [address] [place] Ketones Ql (U) Trace Abnormal Negative [facility] Comment on above: Performed By: #### L [id number] ####Lathe Turner: SHENA GUERIN ([id number])[facility] ([facility])[address] [place] [address] [place] LEUKOCYTE ESTERASE PRESENCE IN URINE BY TEST STRIP Negative Normal Negative [facility] Comment on above: Performed By: #### L [id number] ####Lathe Turner: SHENAPILAR GUERIN ([id number])[facility] S[facility] CAMPUSA [facility] ([facility])[address] [place] [address] [place] MUCUS (#/LPF) IN URINE SEDIMENT Moderate Abnormal Negative [facility] Comment on above: Performed By: #### L [id number] ####Lathe Turner: SHENA AOPORVA ([id number])[facility] S[facility] CAMPUSA [facility] ([facility])[address] NITRITE PRESENCE IN URINE Negative Normal Negative [facility] Comment on above: Performed By: #### L [id number] ####Lathe Turner: SHENAPILAR GUERIN ([id number])[facility] S[facility] CAMPUSA [facility] ([facility])[address] pH (U) 7.0 [pH] Normal 5.0-8.0 [facility] Comment on above: Performed By: #### L [id number] ####Lathe Turner: SHENAPILAR GUERIN ([id number])[facility] S[facility] CAMPUSA [facility] ([facility])[address] Protein (U) [Mass/Vol] 10 mg/dL Abnormal Negative [facility] Comment on above: Performed By: #### L [id number] ####Lathe Turner: SHENA APOORVA ([id number])[facility] ([facility])[address] [place] [address] [place] RBC (#/HPF) IN URINE SEDIMENT 0-2 Normal 0-2 [facility] Comment on above: Performed By: #### L [id number] ####Lathe Turner: SHENA APOORVA ([id number])[facility] ([facility])[address] Specific gravity (U) [Rel density] 1.013 Normal 1.005-1.030 [facility] Comment on above: Performed By: #### L [id number] ####Lathe Turner: SHENA GUERIN ([id number])[facility] ([facility])[address] Specimen volume (U) 12 mL Normal [facility] Comment on above: Performed By: #### L [id number] ####Lathe Turner: SHENA CHAMPAGNEBETTY ([id number])[facility] ([facility])[address] SQUAMOUS EPITHELIAL CELLS (#/HPF) IN URINE SEDIMENT Negative Normal 3-5 [facility] Comment on above: Performed By: #### L [id number] ####Lathe Turner: SHENA GUERIN ([id number])[facility] ([facility])[address] UROBILINOGEN (MG/DL) IN URINE 2 mg/dL Abnormal Normal (0-1) [facility] Comment on above: Performed By: #### L [id number] ####Lathe Turner: SHENA GUERIN ([id number])[facility] ([facility])[address] WBC (LEUKOCYTE) (#/HPF) IN URINE SEDIMENT 0-2 Normal 0-5 [facility] Comment on above: Performed By: #### L [id number] ####Lathe Turner: SHENA GUERIN ([id number])[facility] ([facility])[address] COMPREHENSIVE METABOLIC PANE Rylan 05-30-2024 Albumin [Mass/Vol] 3.7 g/dL Normal 3.5-5.0 [facility] Comment on above: Performed By: #### L AB99, LAB17 ####Lathe Turner: SHENA GUERIN ([id number])[facility] ([facility])[address] ALP [Catalytic activity/Vol] 188 U/L High 40-150 [facility] Comment on above: Performed By: #### L AB99, LAB17 ####Lathe Turner: SHENA GUERIN ([id number])[facility] ([facility])[address] [place] [address] [place] ALT [Catalytic activity/Vol] 89 U/L High <40 [facility] Comment on above: Performed By: #### L AB99, LAB17 ####Lathe Turner: SHENA GUERIN ([id number])[facility] ([facility])[address] [place] [address] [facility] Anion gap [Moles/Vol] 14 mmol/L High 3-13 [facility] Comment on above: Performed By: #### L AB99, LAB17 ####Lathe Turner: SHENA GUERIN ([id number])[facility] ([facility])[address] [place] [address] [place] AST [Catalytic activity/Vol] 132 U/L High <34 [facility] Comment on above: Performed By: #### L CLARISSE, LAB17 ####Lathe Turner: SHENA GUERIN ([id number])[facility] [place] [address] [place] Bilirubin [Mass/Vol] 1.3 mg/dL High <1.2 [facility] Comment on above: Performed By: #### L AB99, LAB17 ####Lathe Turner: SHENA GUERIN ([id number])[facility] ([facility] [place] [address] [place] Calcium [Mass/Vol] 9.1 mg/dL Normal 8.4-10.2 [facility] Comment on above: Performed By: #### L AB99, LAB17 ####Lathe Turner: SHENA GUERIN ([id number])[facility] ([facility])[address] [place] [address] [place] Chloride [Moles/Vol] 103 mmol/L Normal 98-107 [facility] Comment on above: Performed By: #### L AB99, LAB17 ####Lathe Turner: SHENA GUERIN ([id number])[facility] ([facility])[address] [place] [address] [facility] CO2 [Moles/Vol] 20 mmol/L Low 22-29 [facility] Comment on above: Performed By: #### L AB99, LAB17 ####Lathe Turner: SHENA GUERIN ([id number])[facility] ([facility])[address] Creatinine [Mass/Vol] 0.58 mg/dL Low 0.72-1.25 [facility] Comment on above: Performed By: #### L 99, LAB17 ####Lathe Turner: SHENA GUERIN ([id number])[facility] ([facility])[address] [place] [address] GLOMERULAR FILTRATION RATE ML/MIN/1.73 SQ M.PREDICTED >90.0 Normal >60.0 [facility] Comment on above: Result Comment: Calc ulation based on the Chronic Kidney Disease Epidemiology Collaboration (CKD-EPI) equation refit without adjustment for race Performed By: #### L AB99, LAB17 ####Lathe Turner: SHENA GUERIN ([id number])[facility] ([facility])[address] Glucose [Mass/Vol] 100 mg/dL Normal 74-100 [facility] Comment on above: Performed By: #### L AB99, LAB17 ####Lathe Turner: SHENA GUERIN ([id number])[facility] ([facility])[address] [place] [address] [facility] Potassium [Moles/Vol] 3.3 mmol/L Low 3.5-5.1 [facility] Comment on above: Result Comment: Plas ma potassium values may be up to 0.5 mmol/L lower than serum values. Performed By: #### L AB99, LAB17 ####Lathe Turner: SHENA APOORVA ([id number])[facility] ([facility])[address] Protein [Mass/Vol] 7.5 g/dL Normal 6.4-8.3 [facility] Comment on above: Performed By: #### L AB99, LAB17 ####Lathe Turner: SHENA DEL ROSARIOHAMIDA ([id number])[facility] ([facility])[address] [place] [address] [facility] Sodium [Moles/Vol] 137 mmol/L Normal 136-145 [facility] Comment on above: Performed By: #### L AB99, LAB17 ####Lathe Turner: SHENA DEL ROSARIOHAMIDA ([id number])[facility] ([facility])[address] [place] [address] Urea nitrogen [Mass/Vol] 4 mg/dL Low 8-21 [facility] Comment on above: Performed By: #### L AB99, LAB17 ####Lathe Turner: SHENA DEL ROSARIOHAMIDA ([id number])[facility] ([facility])[address] [place] [address] CT ABDOMEN PELVIS WO IV CONT RASTon 05-30-2024 CT ABDOMEN PELVIS WO IV CONTRAST Normal [facility] CT Abdomen and Pelvis WO con traston 05-30-2024 1. Peripancreatic haziness is redemonstrated, which can be seen in the setting of acute pancreatitis. Correlation with appropriate laboratory values is recommended. 2. Hepatomegaly and hepatic steatosis. Report Dictated on Electronically Signed By: Hitesh Nation MD Electronically Signed Date/Time: 05/30/2024 11:03 PM [facility] Patient Name: RORO CLAIRE : 1985 Exam Date/Time: 05/30/2024 22:45 Procedure: CT ABDOMEN PELVIS WO IV CONTRAST Ordering Provider: DURBIN MEJGON Reason For Exam: left flank pain, concern for kidney stone EXAMINATION: CT of the abdomen and pelvis without contrast. EXAM DATE & TIME: 05/30/2024 10:45 PM EDT INDICATION: left flank pain, concern for kidney stone ADDITIONAL INFORMATION: 38-year-old male with left flank pain and concern for renal calculus presents for evaluation COMPARISON: CT abdomen pelvis dated 05/22/2024 LIMITATIONS: Evaluation of the vasculature as well as the solid and hollow viscera is limited due to the lack of intravenous and oral contrast. TECHNIQUE: Contiguous multiplanar 3 mm images were obtained from the levels of the lung bases through the pelvis without contrast. Images were reformatted in coronal and sagittal projections using the raw CT data and were interpreted in conjunction with the axial images to render the findings listed below. Dose reduction was employed with automated exposure control. FINDINGS: Included images of the lower thorax: No focal lung consolidation or pleural effusion. Hepatobiliary: The liver is enlarged and steatotic. No significant intrahepatic ductal dilatation. Gallbladder sludge is noted. Spleen: Unremarkable. Pancreas: Hazy infiltration surrounds the pancreas, similar compared to the prior study. Adrenal glands: Unremarkable. Kidneys, ureters and bladder: No hydronephrosis or nephrolithiasis. The urinary bladder is unremarkable in appearance. Abdominal and pelvic vasculature: Unremarkable. Gastrointestinal: A couple scattered colonic diverticula are seen without surrounding inflammatory change. There is no evidence of bowel obstruction. The appendix is surgically absent. Peritoneum, retroperitoneum and mesentery: Inflammatory changes surround the pancreas and left paracolic gutter. No free fluid or free air. Lymph nodes: No abdominal or pelvic lymphadenopathy is evident. Solid pelvic viscera: Unremarkable. Visualized musculoskeletal structures: No acute fracture or destructive osseous lesion is identified. [facility] EMERGENCY DEPARTMENT RADIOLOGY SYSTEM Hitesh Nation MD - 05/30/2024 Patient Name: RORO VALDIVIA : 1985 Exam Date/Time: 05/30/2024 22:45 Procedure: CT ABDOMEN PELVIS WO IV CONTRAST Ordering Provider: DURBIN MEJGON Reason For Exam: left flank pain, concern for kidney stone EXAMINATION: CT of the abdomen and pelvis without contrast. EXAM DATE & TIME: 05/30/2024 10:45 PM EDT INDICATION: left flank pain, concern for kidney stone ADDITIONAL INFORMATION: 38-year-old male with left flank pain and concern for renal calculus presents for evaluation COMPARISON: CT abdomen pelvis dated 05/22/2024 LIMITATIONS: Evaluation of the vasculature as well as the solid and hollow viscera is limited due to the lack of intravenous and oral contrast. TECHNIQUE: Contiguous multiplanar 3 mm images were obtained from the levels of the lung bases through the pelvis without contrast. Images were reformatted in coronal and sagittal projections using the raw CT data and were interpreted in conjunction with the axial images to render the findings listed below. Dose reduction was employed with automated exposure control. FINDINGS: Included images of the lower thorax: No focal lung consolidation or pleural effusion. Hepatobiliary: The liver is enlarged and steatotic. No significant intrahepatic ductal dilatation. Gallbladder sludge is noted. Spleen: Unremarkable. Pancreas: Hazy infiltration surrounds the pancreas, similar compared to the prior study. Adrenal glands: Unremarkable. Kidneys, ureters and bladder: No hydronephrosis or nephrolithiasis. The urinary bladder is unremarkable in appearance. Abdominal and pelvic vasculature: Unremarkable. Gastrointestinal: A couple scattered colonic diverticula are seen without surrounding inflammatory change. There is no evidence of bowel obstruction. The appendix is surgically absent. Peritoneum, retroperitoneum and mesentery: Inflammatory changes surround the pancreas and left paracolic gutter. No free fluid or free air. Lymph nodes: No abdominal or pelvic lymphadenopathy is evident. Solid pelvic viscera: Unremarkable. Visualized musculoskeletal structures: No acute fracture or destructive osseous lesion is identified. IMPRESSION: 1. Peripancreatic haziness is redemonstrated, which can be seen in the setting of acute pancreatitis. Correlation with appropriate laboratory values is recommended. 2. Hepatomegaly and hepatic steatosis. Report Dictated on Electronically Signed By: Hitesh Nation MD Electronically Signed Date/Time: 05/30/2024 11:03 PM EDT [facility] Radiology Study observation (narrative) [facility] CT Abdomen and Pelvis WO con trastOrdered By: Hitesh Nation on 05-30-2024 [facility] Work Phone: Comprehensive metabolic 1998 panelon 05-30-2024 Albumin [Mass/Vol] 3.7 g/dL 3.5 - 5.0 g/dL [facility] ALP [Catalytic activity/Vol] 188 U/L High 40 - 150 U/L [facility] ALT [Catalytic activity/Vol] 89 U/L High NINF - 40 U/L [facility] Anion gap [Moles/Vol] 14 mmol/L High 3 - 13 mmol/L [facility] AST [Catalytic activity/Vol] 132 U/L High NINF - 34 U/L [facility] Bilirubin [Mass/Vol] 1.3 mg/dL High NINF - 1.2 mg/dL [facility] Calcium [Mass/Vol] 9.1 mg/dL 8.4 - 10. 2 mg/dL [facility] Chloride [Moles/Vol] 103 mmol/L 98 - 10 7 mmol/L [facility] CO2 [Moles/Vol] 20 mmol/L Low 22 - 29 mmol/L [facility] Creatinine [Mass/Vol] 0.58 mg/dL Low 0.72 - 1.25 mg/dL [facility] GFR/1.73 sq M.predicted (S/P/Bld) [Vol rate/Area] - PINF [facility] Comment on above: Calculation based on the Chronic Kidney Disease Epidemiology Collaboration (CKD-EPI) equation refit without adjustment for race Glucose [Mass/Vol] 100 mg/dL 74 - 100 mg/dL [facility] Interpretation and review of laboratory results Abnormal [facility] Potassium [Moles/Vol] 3.3 mmol/L Low 3.5 - 5.1 mmol/L [facility] Comment on above: Plasma potassium víctor ues may be up to 0.5 mmol/L lower than serum values. Protein [Mass/Vol] 7.5 g/dL 6.4 - 8.3 g/dL [facility] Sodium [Moles/Vol] 137 mmol/L 136 - 145 mmol/L [facility] Urea nitrogen [Mass/Vol] 4 mg/dL Low 8 - 21 mg/dL [facility] ED Nursing Noteon 05-30-2024 ED Nursing Note Resp even and unlabored. Able to speak in full sentences. Ambulates without difficulty. Pt c/o left flank pain x 5days. Denies N/V/D, fevers, dysuria. Normal [facility] ED Provider Noteon ED Provider Note Normal [facility] LIPASEon 05-30-2024 Lipase [Catalytic activity/Vol] 37 U/L Normal <55 [facility] Comment on above: Performed By: #### L AB99, LAB17 ####Lathe Turner: SHENA GUERIN ([id number])[facility] (SHCLAB)[address] Laboratory - Chemistry and C hemistry - challengeon 05-30-2024 Lipase [Catalytic activity/Vol] 37 U/L NINF - 55 U/L [facility] Lipase [Catalytic activity/V ol]on 05-30-2024 Interpretation and review of laboratory results Normal [facility] No Panel Informationon 05-30 [facility] Urinalysis complete panel (U )Ordered By: Silvia Prince on 05-30-2024 Bacteria LM.HPF (Urine sed) [#/Area] Negative Negative /HPF [facility] Bilirubin Ql (U) Negative Negative mg/dL [facility] Clarity (U) Clear Clear [facility] Color (U) Yellow Lt. Yellow [facility] Epithelial cells.squamous LM.HPF (Urine sed) [#/Area] Negative [facility] Glucose Ql (U) Normal Normal (<70) mg/dL [facility] Hemoglobin Ql (U) Negative Negative mg/dL [facility] Interpretation and review of laboratory results Abnormal [facility] Ketones (U) [Mass/Vol] Trace Abnormal Negat chan mg/dL [facility] Leukocyte esterase Test strip Ql (U) Negative Negative Teofilo/uL [facility] Mucus LM.HPF (Urine sed) [#/Area] Moderate Abnormal Negative /LPF [facility] Nitrite Ql (U) Negative Negative [facility] pH (U) 7.0 [pH] 5.0 - 8.0 pH [facility] Protein (U) [Mass/Vol] 10 mg/dL Abnormal Negative [facility] RBC LM.HPF (Urine sed) [#/Area] 0-2 [facility] Specific gravity (U) [Rel density] 1.013 1.005 - 1.030 [facility] Urobilinogen (U) [Mass/Vol] 2 mg/dL Abnormal Normal (0-1) [facility] Volume, Urine 12 mL [facility] WBC LM.HPF (Urine sed) [#/Area] 0-2 [facility] BASIC METABOLIC PANELon 04- Anion gap [Moles/Vol] 12 mmol/L Normal 3-13 [facility] Comment on above: Performed By: #### L AB20, LAB99, LAB15 ####Lathe Turner: SHENA GUERIN ([id number])[facility]USKyler [place] (SBHLAB)[address] Calcium [Mass/Vol] 9.5 mg/dL Normal 8.4-10.2 [facility] Comment on above: Performed By: #### L AB20, LAB99, LAB15 ####Lathe Turner: SHENA GUERIN ([id number])[facility]USKyler [place] (SBHLAB)[address] Chloride [Moles/Vol] 102 mmol/L Normal 98-107 [facility] Comment on above: Performed By: #### L AB20, LAB99, LAB15 ####Lathe Turner: SHENA GUERIN ([id number])[facility]USKyler [place] (SBHLAB)[address] CO2 [Moles/Vol] 24 mmol/L Normal 22-29 [facility] Comment on above: Performed By: #### L AB20, LAB99, LAB15 ####Lathe Turner: SHENA GUERIN ([id number])[facility]USKyler [place]LL[place]APRIC[place] (SBHLAB)[address] Creatinine [Mass/Vol] 0.69 mg/dL Low 0.72-1.25 [facility] Comment on above: Performed By: #### L AB20, LAB99, LAB15 ####Lathe Turner: SHENA GUERIN ([id number])[facility]AMPUSA [place]RIC[place] (SBHLAB)[address] GLOMERULAR FILTRATION RATE ML/MIN/1.73 SQ M.PREDICTED >90.0 Normal >60.0 [facility] Comment on above: Result Comment: Calc ulation based on the Chronic Kidney Disease Epidemiology Collaboration (CKD-EPI) equation refit without adjustment for race Performed By: #### L AB20, LAB99, LAB15 ####Lathe Turner: SHENA GUERIN ([id number])[facility]AMPUSKyler [place] (SBHLAB)[address] Glucose [Mass/Vol] 148 mg/dL High 74-100 [facility] Comment on above: Performed By: #### L AB20, LAB99, LAB15 ####Lathe Turner: SHENA GUREIN ([id number])[facility] (SBHLAB)[address] Potassium [Moles/Vol] 3.9 mmol/L Normal 3.5-5.1 [facility] Comment on above: Result Comment: [facility] potassium values may be up to 0.5 mmol/L lower than serum values. Performed By: #### L AB20, LAB99, LAB15 ####Lathe Turner: SHENA GUERIN ([id number])[facility]USKyler [place] (SBHLAB)[address] Sodium [Moles/Vol] 138 mmol/L Normal 136-145 [facility] Comment on above: Performed By: #### L AB20, LAB99, LAB15 ####Lathe Turner: SHENA GUERIN ([id number])[facility] (SBHLAB)[address] Urea nitrogen [Mass/Vol] 4 mg/dL Low 8-21 [facility] Comment on above: Performed By: #### L AB20, LAB99, LAB15 ####Lathe Turner: SHENA GUERIN ([id number])[facility] (SBHLAB)[address] Basic metabolic 1998 panelon 05-22-2024 Anion gap [Moles/Vol] 12 mmol/L 3 - 13 mmol/L [facility] Calcium [Mass/Vol] 9.5 mg/dL 8.4 - 10. 2 mg/dL [facility] Chloride [Moles/Vol] 102 mmol/L 98 - 10 7 mmol/L [facility] CO2 [Moles/Vol] 24 mmol/L 22 - 29 mmol/L [facility] Creatinine [Mass/Vol] 0.69 mg/dL Low 0.72 - 1.25 mg/dL [facility] GFR/1.73 sq M.predicted (S/P/Bld) [Vol rate/Area] - PINF [facility] Comment on above: Calculation based on the Chronic Kidney Disease Epidemiology Collaboration (CKD-EPI) equation refit without adjustment for race Glucose [Mass/Vol] 148 mg/dL High 74 - 100 mg/dL [facility] Potassium [Moles/Vol] 3.9 mmol/L 3.5 - 5.1 mmol/L [facility] Comment on above: Plasma potassium víctor ues may be up to 0.5 mmol/L lower than serum values. Sodium [Moles/Vol] 138 mmol/L 136 - 145 mmol/L [facility] Urea nitrogen [Mass/Vol] 4 mg/dL Low 8 - 21 mg/dL [facility] CBC W Auto Differential pane l (Bld)on 05-22-2024 Basophils (Bld) [#/Vol] 0 10*3/uL 0.0 - 0.2 10*3/uL [facility] Basophils/100 WBC (Bld) 0.3 % 0.0 - 2.0 % [facility] Eosinophils (Bld) [#/Vol] 0.1 10*3/uL 0.0 - 0.5 10*3/uL [facility] Eosinophils/100 WBC (Bld) 0.8 % 0.0 - 6.0 % [facility] Erythrocyte distribution width (RBC) [Ratio] 14.6 % 11.5 - 15.0 % [facility] Hematocrit (Bld) [Volume fraction] 42.6 % 40.0 - 52.0 % [facility] Hemoglobin (Bld) [Mass/Vol] 14.3 g/dL 13.0 - 18.0 g/dL [facility] Immature granulocytes (Bld) [#/Vol] 0 10*3/uL NINF - 0.1 10*3/uL [facility] Immature granulocytes/100 WBC (Bld) 0.2 % 0.0 - 2.0 % [facility] Interpretation and review of laboratory results Normal [facility] Lymphocytes (Bld) [#/Vol] 1 10*3/uL 1.0 - 4.3 10*3/uL [facility] Lymphocytes/100 WBC (Bld) 16 % 15.0 - 45.0 % [facility] MCH (RBC) [Entitic mass] 30.4 pg 26.0 - 34.0 pg [facility] MCHC (RBC) [Mass/Vol] 33.6 % 30.5 - 36.0 % [facility] MCV (RBC) [Entitic vol] 90.4 fL 77.0 - 99.0 fL [facility] Monocytes (Bld) [#/Vol] 0.4 10*3/uL 0.0 - 0.9 10*3/uL [facility] Monocytes/100 WBC (Bld) 6 % 5.0 - 13.0 % [facility] Neutrophils (Bld) [#/Vol] 4.8 10*3/uL 1.8 - 7.5 10*3/uL [facility] Neutrophils/100 WBC (Bld) 76.7 % 38.0 - 82.0 % [facility] Nucleated RBC/100 WBC (Bld) [Ratio] 0 % [facility] Platelet mean volume (Bld) [Entitic vol] 10.5 fL 9.0 - 12.7 fL [facility] Platelets (Bld) [#/Vol] 144 10*3/uL 140 - 440 10*3/uL [facility] RBC (Bld) [#/Vol] 4.71 10*6/uL 4.40 - 5.9 0 10*6/uL [facility] WBC (Bld) [#/Vol] 6.3 10*3/uL 3.6 - 10.7 10*3/uL [facility] CBC WITH AUTO DIFFERENTIALon 05-22-2024 Basophils (Bld) [#/Vol] 0.0 10*3/uL Normal 0.0-0.2 [facility] Comment on above: Performed By: #### L [id number] ####Lathe Turner: SHENA GUERIN ([id number])[facility] (SBAB)[address] [place] [address] Basophils/100 WBC (Bld) 0.3 % Normal 0.0-2.0 [facility] Comment on above: Performed By: #### L [id number] ####Lathe Turner: SHENAPILAR DEL ROSARIOBeckieBETTY ([id number])[facility] CAMPUSA [place] (SBHLAB)[address] Eosinophils (Bld) [#/Vol] 0.1 10*3/uL Normal 0.0-0.5 [facility] Comment on above: Performed By: #### L [id number] ####Lathe Turner: SHENA APOORVA ([id number])[facility] CAMPUSA [facility]BCIBOL[facility]N (SBHLAB)[address] Eosinophils/100 WBC (Bld) 0.8 % Normal 0.0-6.0 [facility] Comment on above: Performed By: #### L [id number] ####Lathe Turner: SHENAPILAR GUERIN ([id number])[facility] CAMPUSA BARBCIBOLA [facility]OSPITALN ([facility])[address] [place] [address] Erythrocyte distribution width (RBC) [Ratio] 14.6 % Normal 11.5-15.0 [facility] Comment on above: Performed By: #### L [id number] ####Lathe Turner: SHENA APOORVA ([id number])[facility] CAMPUSA [place] ([facility])[address] [place] [address] Hematocrit (Bld) [Volume fraction] 42.6 % Normal 40.0-52.0 [facility] Comment on above: Performed By: #### L [id number] ####Lathe Turner: SHENA CHAMPAGNEBETTY ([id number])[facility] BARBCIBOL[facility]OSPITALN (SBAB)[address] Hemoglobin (Bld) [Mass/Vol] 14.3 g/dL Normal 13.0-18.0 [facility] Comment on above: Performed By: #### L [id number] ####Lathe Turner: SHENA CHAMPAGNEBETTY ([id number])[facility] CAMPUSA [facility]BC[facility]ITALN (SBAB)[address] IMMATURE GRANS % 0.2 % Normal 0.0-2.0 [facility] Comment on above: Performed By: #### L [id number] ####Lathe Turner: SHENA CHAMPAGNEBETTY ([id number])[facility] CAMPUSA [facility]BCIB[facility]ITALN (SBHLAB)[address] IMMATURE GRANS ABSOLUTE 0.0 10*3/uL Normal <0.1 [facility] Comment on above: Performed By: #### L [id number] ####Lathe Turner: SHENA GUERIN ([id number])[facility] CAMPUSA [facility]BC[facility]ITALN (SBHLAB)[address] Lymphocytes (Bld) [#/Vol] 1.0 10*3/uL Normal 1.0-4.3 [facility] Comment on above: Performed By: #### L [id number] ####Lathe Turner: SHENA CHAMPAGNEBETTY ([id number])[facility] CAMPUSKyler ENGELCIBOL[facility]OSPITALN (SBHLAB)[address] [place] [address] Lymphocytes/100 WBC (Bld) 16.0 % Normal 15.0-45.0 [facility] Comment on above: Performed By: #### L [id number] ####Lathe Turner: SHENA CHAMPAGNEBETTY ([id number])[facility] CAMPUSKyler [facility]BC[facility]ITALN (SBHLAB)[address] [place] [address] MCH (RBC) [Entitic mass] 30.4 pg Normal 26.0-34.0 [facility] Comment on above: Performed By: #### L [id number] ####Lathe Turner: SHENA GUERIN ([id number])[facility] BARBCIBOL[facility]ITALN (SBHLAB)[address] [place] [address] MCHC 33.6 % Normal 30.5-36.0 [facility] Comment on above: Performed By: #### L [id number] ####Lathe Turner: SHENA GUERIN ([id number])[facility] BARBCIBOL[facility]OSPITALN (SBHLAB)[address] [place] [address] MCV (RBC) [Entitic vol] 90.4 fL Normal 77.0-99.0 [facility] Comment on above: Performed By: #### L [id number] ####Lathe Turner: SHENA GUERIN ([id number])[facility] [place] (SBHLAB)[address] Monocytes (Bld) [#/Vol] 0.4 10*3/uL Normal 0.0-0.9 [facility] Comment on above: Performed By: #### L [id number] ####Lathe Turner: SHENA GUERIN ([id number])[facility] [place] (SBHLAB)[address] Monocytes/100 WBC (Bld) 6.0 % Normal 5.0-13.0 [facility] Comment on above: Performed By: #### L [id number] ####Lathe Turner: SHENA GUERIN ([id number])[facility] CAMPUSA [place] (SBHLAB)[address] [place] [address] NEUTROPHILS ABSOLUTE 4.8 10*3/uL Normal 1.8-7.5 [facility] Comment on above: Performed By: #### L [id number] ####Lathe Turner: SHENA GUERIN ([id number])[facility] CAMPUSA [place] (SBHLAB)[address] Neutrophils/100 WBC (Bld) 76.7 % Normal 38.0-82.0 [facility] Comment on above: Performed By: #### L [id number] ####Lathe Turner: SHENA GUERNI ([id number])[facility] CAMPUSA [place] (SBHLAB)[address] NRBC 0.0 /100 WBCs Normal 0.0-2.0 [facility] Comment on above: Performed By: #### L [id number] ####Lathe Turner: SHENA GUERIN ([id number])[facility] CAMPUSA [place] (SBHLAB)[address] Platelet mean volume (Bld) [Entitic vol] 10.5 fL Normal 9.0-12.7 [facility] Comment on above: Performed By: #### L [id number] ####Lathe Turner: SHENA GUERIN ([id number])[facility] CAMPUSKyler [place]IO (SBHLAB)[address] Platelets (Bld) [#/Vol] 144 10*3/uL Normal 140-440 [facility] Comment on above: Performed By: #### L [id number] ####Lathe Turner: SHENA GUERIN ([id number])[facility] CAMPUSKyler [facility]ITALN (SBHLAB)[address] RBC (Bld) [#/Vol] 4.71 10*6/uL Normal 4.40-5.90 [facility] Comment on above: Performed By: #### L [id number] ####Lathe Turner: SHENA GUERIN ([id number])[facility] CAMPUSKyler [place]UMANN (SBHLAB)[address] WBC (Bld) [#/Vol] 6.3 10*3/uL Normal 3.6-10.7 [facility] Comment on above: Performed By: #### L [id number] ####Lathe Turner: SHENA GUERIN ([id number])[facility] CAMPUSKyler [place] (SBHLAB)[address] ABDOMEN PELVIS W CONTRAST on 05-22-2024 CT ABDOMEN PELVIS W CONTRAST Normal [facility] CT Abdomen and Pelvis W cont rast Ellen 05-22-2024 1. Mild peripancreat ic fat stranding similar in appearance compared to 05/07/2024. This can be seen in the setting of acute pancreatitis. Correlation with amylase and lipase levels is recommended. No evidence of pancreatic necrosis. No acute peripancreatic fluid collections. 2. Diffuse fatty infiltration of the liver. Report Dictated on Electronically Signed By: Argelia Mathias MD Electronically Signed Date/Time: 05/22/2024 4:39 PM T [facility] Patient Name: RORO CLAIRE : 1985 Exam Date/Time: 05/22/2024 15:28 Procedure: CT ABDOMEN PELVIS W CONTRAST Ordering Provider: VALLES AMY Reason For Exam: Abdominal pain, acute, nonlocalized EXAM: CT Abdomen and Pelvis With Intravenous Contrast CLINICAL INDICATION: Abdominal pain, acute, nonlocalized TECHNIQUE: Axial computed tomography images of the abdomen and pelvis with intravenous contrast. This CT exam was performed using one or more of the following dose reduction techniques: automated exposure control, adjustment of the mA and/or kV according to patient size, and/or use of iterative reconstruction technique. COMPARISON: 05/07/2024 FINDINGS: LUNG BASES: Unremarkable. No mass. No consolidation. ABDOMEN: LIVER: Diffuse fatty infiltration of the liver. GALLBLADDER AND BILE DUCTS: Unremarkable. No calcified stones. No ductal dilation. PANCREAS: There is mild peripancreatic fat stranding similar in appearance compared to 05/07/2024. No acute peripancreatic fluid collections are seen. The pancreas enhances homogeneously. No ductal dilation. SPLEEN: Unremarkable. No splenomegaly. ADRENALS: Unremarkable. No mass. KIDNEYS AND URETERS: Unremarkable. No solid mass. No hydronephrosis. STOMACH AND BOWEL: Unremarkable. No obstruction. No mucosal thickening. 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 BLADDER: Unremarkable. No mass. REPRODUCTIVE: Unremarkable as visualized. ABDOMEN and PELVIS: INTRAPERITONEAL SPACE: Unremarkable. No free air. No significant fluid collection. BONES/JOINTS: No acute fracture. SOFT TISSUES: Small bilateral fat-containing inguinal hernias. VASCULATURE: Unremarkable. No abdominal aortic aneurysm. LYMPH NODES: Unremarkable. No enlarged lymph nodes. [facility] EMERGENCY DEPARTMENT RADIOLOGY SYSTEM Alyse Mathias MD - 05/22/2024 Patient Name: RORO VALDIVIA : 1985 [facility]#: [id number] Exam Date/Time: 05/22/2024 15:28 Procedure: CT ABDOMEN PELVIS W CONTRAST Ordering Provider: VALLES AMY Reason For Exam: Abdominal pain, acute, nonlocalized EXAM: CT Abdomen and Pelvis With Intravenous Contrast CLINICAL INDICATION: Abdominal pain, acute, nonlocalized TECHNIQUE: Axial computed tomography images of the abdomen and pelvis with intravenous contrast. This CT exam was performed using one or more of the following dose reduction techniques: automated exposure control, adjustment of the mA and/or kV according to patient size, and/or use of iterative reconstruction technique. COMPARISON: 05/07/2024 FINDINGS: LUNG BASES: Unremarkable. No mass. No consolidation. ABDOMEN: LIVER: Diffuse fatty infiltration of the liver. GALLBLADDER AND BILE DUCTS: Unremarkable. No calcified stones. No ductal dilation. PANCREAS: There is mild peripancreatic fat stranding similar in appearance compared to 05/07/2024. No acute peripancreatic fluid collections are seen. The pancreas enhances homogeneously. No ductal dilation. SPLEEN: Unremarkable. No splenomegaly. ADRENALS: Unremarkable. No mass. KIDNEYS AND URETERS: Unremarkable. No solid mass. No hydronephrosis. STOMACH AND BOWEL: Unremarkable. No obstruction. No mucosal thickening. 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 BLADDER: Unremarkable. No mass. REPRODUCTIVE: Unremarkable as visualized. ABDOMEN and PELVIS: INTRAPERITONEAL SPACE: Unremarkable. No free air. No significant fluid collection. BONES/JOINTS: No acute fracture. SOFT TISSUES: Small bilateral fat-containing inguinal hernias. VASCULATURE: Unremarkable. No abdominal aortic aneurysm. LYMPH NODES: Unremarkable. No enlarged lymph nodes. IMPRESSION: 1. Mild peripancreatic fat stranding similar in appearance compared to 05/07/2024. This can be seen in the setting of acute pancreatitis. Correlation with amylase and lipase levels is recommended. No evidence of pancreatic necrosis. No acute peripancreatic fluid collections. 2. Diffuse fatty infiltration of the liver. Report Dictated on Electronically Signed By: Argelia Mathias MD Electronically Signed Date/Time: 05/22/2024 4:39 PM EDT [facility] Radiology Study observation (narrative) [facility] CT Abdomen and Pelvis W cont rast IVOrdered By: Alyse Mathias on 05-22-2024 [facility] Work Phone: ED Nursing Noteon 05-22-2024 ED Nursing Note Abdominal pain Pancreatitis was seen 3 days ago and was told if pain got worse to come back. Now also having chest pain and kidney pain Normal [facility] ED Provider Noteon ED Provider Note Normal [facility] HEPATIC FUNCTION PANELon Albumin [Mass/Vol] 4.0 g/dL Normal 3.5-5.0 [facility] Comment on above: Performed By: #### L AB20, LAB99, LAB15 ####Lathe Turner: SHENA UNDERWOODCER ([id number])[facility] [place] ([facility])[address] [place] [address] [place] ALP [Catalytic activity/Vol] 187 U/L High 40-150 [facility] Comment on above: Performed By: #### L AB20, LAB99, LAB15 ####Lathe Turner: SHENA DEL ROSARIOHAMIDA ([id number])[facility] [place] ([facility])[address] [place] [address] [place] ALT [Catalytic activity/Vol] 75 U/L High <40 [facility] Comment on above: Performed By: #### L AB20, LAB99, LAB15 ####Lathe Turner: SHENA APOORVA ([id number])[facility] [place] ([facility])[address] [place] [address] [place] AST [Catalytic activity/Vol] 119 U/L High <34 [facility] Comment on above: Performed By: #### L AB20, LAB99, LAB15 ####Lathe Turner: SHENA DEL ROSARIOHAMIDA ([id number])[facility] [place] [address] [place] Bilirubin [Mass/Vol] 2.6 mg/dL High <1.2 [facility] Comment on above: Performed By: #### L AB20, LAB99, LAB15 ####Lathe Turner: SHENA DEL ROSARIOMARILOUBETTY ([id number])[facility] ([facility] [place] [address] [place] Bilirubin.indirect [Mass/Vol] 1.7 mg/dL High <0.5 [facility] Comment on above: Performed By: #### L AB20, LAB99, LAB15 ####Lathe Turner: SHENA DEL ROSARIOHAMIDA ([id number])[facility] [place] ([facility])[address] Protein [Mass/Vol] 7.5 g/dL Normal 6.4-8.3 [facility] Comment on above: Result Comment: Seru m protein values are higher than plasma values. Samples from recumbent persons are lower by up to 0.5 g/dL as compared to ambulatory persons. After 60 years values are lower by up to 0.2 g/dL. Performed By: #### L AB20, LAB99, LAB15 ####Lathe Turner: SHENA GUERIN ([id number])[facility] Hepatic function 2000 panelo n 05-22-2024 Albumin [Mass/Vol] 4 g/dL 3.5 - 5.0 g/dL [facility] ALP [Catalytic activity/Vol] 187 U/L High 40 - 150 U/L [facility] ALT [Catalytic activity/Vol] 75 U/L High NINF - 40 U/L [facility] AST [Catalytic activity/Vol] 119 U/L High NINF - 34 U/L [facility] Bilirubin [Mass/Vol] 2.6 mg/dL High NINF - 1.2 mg/dL [facility] Bilirubin.conjugated [Mass/Vol] 1.7 mg/dL High NINF - 0.5 mg/dL [facility] Protein [Mass/Vol] 7.5 g/dL 6.4 - 8.3 g/dL [facility] Comment on above: Serum protein values are higher than plasma values. Samples from recumbent persons are lower by up to 0.5 g/dL as compared to ambulatory persons. After 60 years values are lower by up to 0.2 g/dL. LIPASEon 05-22-2024 Lipase [Catalytic activity/Vol] 50 U/L Normal <55 [facility] Comment on above: Performed By: #### L AB20, LAB99, LAB15 ####Lathe Turner: SHENA GUERIN ([id number])[facility] ([facility])[address] Laboratory - Chemistry and C hemistry - challengeon 05-22-2024 Lipase [Catalytic activity/Vol] 50 U/L NINF - 55 U/L [facility] Lipase [Catalytic activity/V ol]on 05-22-2024 Interpretation and review of laboratory results Normal [facility] No Panel Informationon 05-22 Interpretation and review of laboratory results Abnormal [facility] 36on 05-21-2024 36 This [facility] RN called patient for follow up, voicemail received, message left. Normal [facility] CBC W Auto Differential pane l (Bld)on 05-21-2024 Basophils (Bld) [#/Vol] 0.04 10*3/uL Normal <0.11 [facility] Comment on above: Order Comment: Speci men Type: BLOOD SPECIMEN Ordering Facility: [facility] Address: [address] [place] [address] Performed By: #### 5 7021-8 #### [facility] CLIA [id number] [address] [place], [place] [address] [place] Basophils/100 WBC (Bld) 0.5 % Normal A [facility] Comment on above: Order Comment: Speci men Type: BLOOD SPECIMEN Ordering Facility: [facility] Address: [address] [place] [address] Performed By: #### 5 7021-8 #### [facility] CLIA [id number] [address] [place], [place] [address] [place] Differential cell count method Nom (Bld) Auto Normal [facility] Comment on above: Order Comment: Speci men Type: BLOOD SPECIMEN Ordering Facility: [facility] Address: [address] [place] [address] Performed By: #### 5 7021-8 #### [facility] CLIA [id number] [address] [place], [place] [address] [place] Eosinophils (Bld) [#/Vol] 0.11 10*3/uL Normal <0.46 [facility] Comment on above: Order Comment: Speci men Type: BLOOD SPECIMEN Ordering Facility: [facility] Address: [address] [place] [address] Performed By: #### 5 7021-8 #### [facility] CLIA [id number] [address] [place], [place] [address] [place] Eosinophils/100 WBC (Bld) 1.4 % Normal [facility] Comment on above: Order Comment: Speci men Type: BLOOD SPECIMEN Ordering Facility: [facility] Address: [address] [place] [address] Performed By: #### 5 7021-8 #### [facility] CLIA [id number] [address] [place] [address] [place] Erythrocyte distribution width (RBC) [Ratio] 14.8 % Normal 11.5-15.0 [facility] Comment on above: Order Comment: Speci men Type: BLOOD SPECIMEN Ordering Facility: [facility] Address: [address] [place] [address] Performed By: #### 5 7021-8 #### [facility] CLIA [id number] [address] [place] [address] [place] Hematocrit (Bld) [Volume fraction] 45.7 % Normal 39.0-51.0 [facility] Comment on above: Order Comment: Speci men Type: BLOOD SPECIMEN Ordering Facility: [facility] Address: [address] [place] [address] Performed By: #### 5 7021-8 #### [facility] CLIA [id number] [address] [place], [place] [address] [place] Hemoglobin (Bld) [Mass/Vol] 15.1 g/dL Normal 13.0-17.0 [facility] Comment on above: Order Comment: Speci men Type: BLOOD SPECIMEN Ordering Facility: [facility] Address: [address] [place] [address] Performed By: #### 5 7021-8 #### [facility] CLIA [id number] [address] [place], [place] [address] [place] Immature granulocytes (Bld) [#/Vol] 10*3/uL Normal <0.10 [facility] Comment on above: Order Comment: Speci men Type: BLOOD SPECIMEN Ordering Facility: [facility] Address: [address] [place] [address] Performed By: #### 5 7021-8 #### [facility] CLIA [id number] [address] [place] [address] [place] Immature granulocytes/100 WBC (Bld) 0.1 % Normal [facility] Comment on above: Order Comment: Speci men Type: BLOOD SPECIMEN Ordering Facility: [facility] Address: [address] [place] [address] Performed By: #### 5 7021-8 #### [facility] CLIA [id number] [address] [address] [place] Lymphocytes (Bld) [#/Vol] 3.38 10*3/uL Normal 1.00-4.00 [facility] Comment on above: Order Comment: Speci men Type: BLOOD SPECIMEN Ordering Facility: [facility] Address: [address] [place] [address] Performed By: #### 5 7021-8 #### [facility] CLIA [id number] [address] [place] [address] [place] Lymphocytes/100 WBC (Bld) 41.9 % Normal [facility] Comment on above: Order Comment: Speci men Type: BLOOD SPECIMEN Ordering Facility: [facility] Address: [address] [place] [address] Performed By: #### 5 7021-8 #### [facility] CLIA [id number] [address] [place], [place] [address] [place] MCH (RBC) [Entitic mass] 29.8 pg Normal 26.0-34.0 [facility] Comment on above: Order Comment: Speci men Type: BLOOD SPECIMEN Ordering Facility: [facility] Address: [address] [place] [address] Performed By: #### 5 7021-8 #### [facility] CLIA [id number] [address] [place], [place] [address] [place] MCHC (RBC) [Mass/Vol] 33.0 g/dL Normal 30.5-36.0 [facility] Comment on above: Order Comment: Speci men Type: BLOOD SPECIMEN Ordering Facility: [facility] Address: [address] [place] [address] Performed By: #### 5 7021-8 #### [facility] CLIA [id number] [address] [place], [place] [address] [place] MCV (RBC) [Entitic vol] 90.1 fL Normal 80.0-100.0 A [facility] Comment on above: Order Comment: Speci men Type: BLOOD SPECIMEN Ordering Facility: [facility] Address: [address] [place] [address] Performed By: #### 5 7021-8 #### [facility] CLIA [id number] [address] [place], [place] [address] [place] Monocytes (Bld) [#/Vol] 0.53 10*3/uL Normal <0.87 [facility] Comment on above: Order Comment: Speci men Type: BLOOD SPECIMEN Ordering Facility: [facility] Address: [address] [place] [address] Performed By: #### 5 7021-8 #### [facility] CLIA [id number] [address] [place], [place] [address] [place] Monocytes/100 WBC (Bld) 6.6 % Normal A [facility] Comment on above: Order Comment: Speci men Type: BLOOD SPECIMEN Ordering Facility: [facility] Address: [address] [place] [address] Performed By: #### 5 7021-8 #### [facility] CLIA [id number] [address] [place], [place] [address] [place] Neutrophils (Bld) [#/Vol] 3.99 10*3/uL Normal 1.45-7.50 [facility] Comment on above: Order Comment: Speci men Type: BLOOD SPECIMEN Ordering Facility: [facility] Address: [address] [place] [address] Performed By: #### 5 7021-8 #### [facility] CLIA [id number] [address] [place], [place] [address] [place] Neutrophils/100 WBC (Bld) 49.5 % Normal [facility] Comment on above: Order Comment: Speci men Type: BLOOD SPECIMEN Ordering Facility: [facility] Address: [address] [place] [address] Performed By: #### 5 7021-8 #### [facility] CLIA [id number] [address] [address] [place] Nucleated RBC (Bld) [#/Vol] Normal [facility] Comment on above: Order Comment: Speci men Type: BLOOD SPECIMEN Ordering Facility: [facility] Address: [address] [place] [address] Performed By: #### 5 7021-8 #### [facility] CLIA [id number] [address] [place] [address] [place] Nucleated RBC/100 WBC (Bld) [Ratio] Normal [facility] Comment on above: Order Comment: Speci men Type: BLOOD SPECIMEN Ordering Facility: [facility] Address: [address] [place] [address] Performed By: #### 5 7021-8 #### [facility] CLIA [id number] [address] [place] [address] [place] Platelet mean volume (Bld) [Entitic vol] 9.6 fL Normal 9.0-12.7 [facility] Comment on above: Order Comment: Speci men Type: BLOOD SPECIMEN Ordering Facility: [facility] Address: [address] [place] [address] Performed By: #### 5 7021-8 #### [facility] CLIA [id number] [address] [place] [address] [place] Platelets (Bld) [#/Vol] 225 10*3/uL Normal 150-400 [facility] Comment on above: Order Comment: Speci men Type: BLOOD SPECIMEN Ordering Facility: [facility] Address: [address] [place] [address] Performed By: #### 5 7021-8 #### [facility] CLIA [id number] [address] [place] [address] [place] RBC (Bld) [#/Vol] 5.07 10*6/uL Normal 4.20-6.00 [facility] Comment on above: Order Comment: Speci men Type: BLOOD SPECIMEN Ordering Facility: [facility] Address: [address] [place] [address] Performed By: #### 5 7021-8 #### [facility] CLIA [id number] [address] [address] [place] [facility] WBC (Bld) [#/Vol] 8.06 10*3/uL Normal 3.70-11.00 [facility] Comment on above: Order Comment: Speci men Type: BLOOD SPECIMEN Ordering Facility: [facility] Address: [address] [place] [address] Performed By: #### 5 7021-8 #### [facility] CLIA [id number] [address] [address] [facility] Comprehensive metabolic 2000 panelon 05-21-2024 Albumin [Mass/Vol] 4.8 g/dL Normal 3.9-4.9 [facility] Comment on above: Order Comment: Speci men Type: BLOOD SPECIMEN Ordering Facility: [facility] Address: [address] [place] [address] Performed By: #### 2 4323-8, 3040-3 #### [facility] CLIA [id number] [address] [place], [place] [address] [place] ALP [Catalytic activity/Vol] 199 U/L High 38-113 [facility] Comment on above: Order Comment: Speci men Type: BLOOD SPECIMEN Ordering Facility: [facility] Address: [address] [place] [address] Performed By: #### 2 4323-8, 3040-3 #### [facility] CLIA [id number] [address] [place], [place] [address] [place] ALT [Catalytic activity/Vol] 70 U/L High 10-54 [facility] Comment on above: Order Comment: Speci men Type: BLOOD SPECIMEN Ordering Facility: [facility] Address: [address] [place] [address] Performed By: #### 2 4323-8, 3039-3 #### [facility] CLIA [id number] [address] [place], [place] [address] [place] Anion gap [Moles/Vol] 15 mmol/L Normal 8-15 [facility] Comment on above: Order Comment: Speci men Type: BLOOD SPECIMEN Ordering Facility: [facility] Address: [address] [place] [address] Performed By: #### 2 4323-8, 3039-3 #### [facility] CLIA [id number] [address] [place] [address] [place] AST [Catalytic activity/Vol] 122 U/L High 14-40 [facility] Comment on above: Order Comment: Speci men Type: BLOOD SPECIMEN Ordering Facility: [facility] Address: [address] [place] [address] Performed By: #### 2 4323-8, 3 #### [facility] CLIA [id number] [address] [place] [address] [place] Bilirubin [Mass/Vol] 1.8 mg/dL High 0.2-1.3 [facility] Comment on above: Order Comment: Speci men Type: BLOOD SPECIMEN Ordering Facility: [facility] Address: [address] [place] [address] Result Comment: Use of this assay is not recommended for patients undergoing treatment with eltrombopag due to the potential for falsely elevated results. Performed By: #### 2 4323-8, 3039-3 #### [facility] CLIA [id number] [address] [place], [place] [address] [place] Calcium [Mass/Vol] 9.6 mg/dL Normal 8.5-10.2 [facility] Comment on above: Order Comment: Speci men Type: BLOOD SPECIMEN Ordering Facility: [facility] Address: [address] [place] [address] Performed By: #### 2 4323-8, 3040-3 #### [facility] CLIA [id number] [address] [address] [place] Chloride [Moles/Vol] 99 mmol/L Normal 98-107 [facility] Comment on above: Order Comment: Speci men Type: BLOOD SPECIMEN Ordering Facility: [facility] Address: [address] [place] [address] Performed By: #### 2 4323-8, 3040-3 #### [facility] CLIA [id number] [address] [place] [address] [place] CO2 [Moles/Vol] 21 mmol/L Low 22-30 [facility] Comment on above: Order Comment: Speci men Type: BLOOD SPECIMEN Ordering Facility: [facility] Address: [address] [place] [address] Performed By: #### 2 4323-8, 0-3 #### [facility] CLIA [id number] [address] [place] [address] [place] Creatinine [Mass/Vol] 0.64 mg/dL Low 0.73-1.22 [facility] Comment on above: Order Comment: Speci men Type: BLOOD SPECIMEN Ordering Facility: [facility] Address: [address] [place] [address] Result Comment: Use of this assay is not recommended for patients undergoing treatment with phenindione, due to the potential for falsely depressed results. Performed By: #### 2 4323-8, 3040-3 #### [facility] CLIA [id number] [address] [place] [address] [place] Creatinine and Glomerular filtration rate.predicted panel (S/P/Bld) 125 mL/min/1.73m??? Normal >=60 [facility] Comment on above: Order Comment: Speci men Type: BLOOD SPECIMEN Ordering Facility: [facility] Address: [address] [place] [address] Result Comment: Oliva mated Glomerular Filtration Rate (eGFR) is calculated using the 2020 CKD-EPI creatinine equation. This equation utilizes serum creatinine, sex, and age as parameters. The creatinine assay has traceable calibration to isotope dilution-mass spectrometry. Refer to KDIGO guidelines for clinical interpretation. In patients with unstable renal function, e.g. those with acute kidney injury, the eGFR may not accurately reflect actual GFR. Performed By: #### 2 4323-8, 3039-3 #### [facility] CLIA [id number] [address] [place] [address] [place] Glucose [Mass/Vol] 127 mg/dL High 74-99 [facility] Comment on above: Order Comment: Lakshim espinoza Type: BLOOD SPECIMEN Ordering Facility: [facility] Address: [address] [place] [address] Result Comment: The [place] Diabetes Association (ADA) provides guidance for cutoff values for fasting glucose and random glucose. The ADA defines fasting as no caloric intake for at least 8 hours. Fasting plasma glucose results between 100 to 125 mg/dL indicate increased risk for diabetes (prediabetes). Fasting plasma glucose results greater than or equal to 126 mg/dL meet the criteria for diagnosis of diabetes. In the absence of unequivocal hyperglycemia, results should be confirmed by repeat testing. In a patient with classic symptoms of hyperglycemia or hyperglycemic crisis, random plasma glucose results greater than or equal to 200 mg/dL meet the criteria for diagnosis of diabetes. Reference: Standards of Medical Care in Diabetes 2016, [place] [employer] Association. Diabetes Care. 2016.39(Suppl 1). Performed By: #### 2 4323-8, 3039-3 #### [facility] CLIA [id number] [address] [place] [address] [place] Potassium [Moles/Vol] 3.4 mmol/L Low 3.7-5.1 [facility] Comment on above: Order Comment: Lakshmi espinoza Type: BLOOD SPECIMEN Ordering Facility: [facility] Address: [address] [place], [place] [address] Performed By: #### 2 4323-8, 3040-3 #### [facility] CLIA [id number] [address] [place] [address] [place] Protein [Mass/Vol] 8.3 g/dL High 6.3-8.0 [facility] Comment on above: Order Comment: Speci men Type: BLOOD SPECIMEN Ordering Facility: [facility] Address: [address] [place] [address] Performed By: #### 2 4323-8, 3040-3 #### [facility] CLIA [id number] [address] [place] [address] [place] Sodium [Moles/Vol] 135 mmol/L Low 136-144 [facility] Comment on above: Order Comment: Speci men Type: BLOOD SPECIMEN Ordering Facility: [facility] Address: [address] [place] [address] Performed By: #### 2 4323-8, 0-3 #### [facility] CLIA [id number] [address] [place], [place] [address] [place] Urea nitrogen [Mass/Vol] 5 mg/dL Low 9-24 [facility] Comment on above: Order Comment: Speci men Type: BLOOD SPECIMEN Ordering Facility: [facility] Address: [address] [place] [address] Performed By: #### 2 4323-8, 3040-3 #### [facility] CLIA [id number] [address] [place], [place] [address] [place] ED PROV NOTEon 05-21-2024 ED PROV NOTE HNO ID: [id number] Author: BALJINDER DUNLAP DO Service: Emergency Medicine Author Type: Physician Type: ED Provider Notes Filed: 05/21/2024 04:32 Note Text: ED Provider Note Patient Name: Roro Valdivia : 1985 SERVICE DATE: 05/21/24 History Patient presents with: Abdominal Pain: Pt reports upper abdominal pain with N/V and states that his last drink of alcohol was yesterday (beer). HPI 38-year-old male with history of alcohol induced pancreatitis presenting with concern for pancreatitis tonight. He states that he has had epigastric abdominal pain with nausea and vomiting. He states that he believes he has chronic pancreatitis. He states that he vomits daily and has pain daily. Patient states that he has ongoing symptoms but believes that they became more severe about 3 days ago. Denies any fever or chills. Denies any blood in his vomitus or stools. States that he believes he is dehydrated as he has not been able to keep anything down. He has had previous appendectomy. No urinary symptoms. No chest pain or shortness of breath. States that he last drank alcohol yesterday. PAST MEDICAL HISTORY Diagnosis Date Anxiety Asthma (HCC) Benzodiazepine abuse (HCC) Cocaine use disorder (HCC) Depression Essential hypertension GERD (gastroesophageal reflux disease) Methamphetamine use (HCC) Palpitations Pancreatitis (HCC) Panic attack Panic disorder without agoraphobia Severe alcohol use disorder (HCC) SVT (supraventricular tachycardia) (HCC) Tourette disorder PAST SURGICAL HISTORY Procedure Laterality Date APPENDECTOMY HX FAMILY HISTORY Problem Relation Age of Onset Asthma Mother other (panic disorder) Mother Cancer Maternal Grandmother liver Colon Cancer No Family History Social History Tobacco Use Smoking status: Every Day Current packs/day: 0.00 Types: Cigarettes Start date: 02/09/2006 Last attempt to quit: 02/09/2015 Years since quittin.2 Smokeless tobacco: Never Tobacco comments: 2 cigarettes per day Vaping Use Vaping status: Never Used Substance and Sexual Activity Alcohol use: Yes Comment: Last drink 05/20/24 Drug use: Not Currently Sexual activity: Not Currently Partners: Male control/protection: Not used ALLERGIES No Known Allergies Review of Systems Constitutional: Negative for chills, diaphoresis, fatigue and fever. HENT: Negative for congestion, rhinorrhea, sinus pressure and sore throat. Respiratory: Negative for cough, chest tightness and shortness of breath. Cardiovascular: Negative for chest pain and palpitations. Gastrointestinal: Positive for abdominal pain, nausea and vomiting. Negative for abdominal distention, blood in stool, constipation and diarrhea. Endocrine: Negative for polydipsia and polyuria. Genitourinary: Negative for difficulty urinating, dysuria, flank pain, frequency, hematuria, testicular pain and urgency. Musculoskeletal: Negative for arthralgias, back pain, gait problem, myalgias, neck pain and neck stiffness. Skin: Negative for color change and rash. Neurological: Negative for dizziness, tremors, syncope, weakness, light-headedness, numbness and headaches. Hematological: Negative for adenopathy. Psychiatric/Behavioral: Negative for self-injury and suicidal ideas. The patient is not nervous/anxious. Physical Exam Vitals [05/21/24 0222] BP Pulse Temp Temp src Resp SpO2 Weight Height 152/106 (!) 112 36.3 ?C (97.3 ?F) Temporal 16 98 % 113.4 kg (250 lb) 1.854 m (6' 1) Physical Exam Vitals and nursing note reviewed. Constitutional: General: He is not in acute distress. Appearance: He is well-developed. He is not ill-appearing, toxic-appearing or diaphoretic. HENT: Head: Normocephalic and atraumatic. Right Ear: External ear normal. Left Ear: External ear normal. Mouth/Throat: Comments: Mucous membranes slightly dry Eyes: General: No scleral icterus. Right eye: No discharge. Left eye: No discharge. Extraocular Movements: Extraocular movements intact. Conjunctiva/sclera: Conjunctivae normal. Pupils: Pupils are equal, round, and reactive to light. Neck: Vascular: No JVD. Trachea: No tracheal deviation. Cardiovascular: Rate and Rhythm: Regular rhythm. Tachycardia present. Heart sounds: Normal heart sounds. No murmur heard. No friction rub. No gallop. Pulmonary: Effort: Pulmonary effort is normal. No respiratory distress. Breath sounds: Normal breath sounds. No stridor. No wheezing, rhonchi or rales. Abdominal: General: Bowel sounds are normal. There is no distension or abdominal bruit. There are no signs of injury. Palpations: Abdomen is soft. There is no shifting dullness, fluid wave, hepatomegaly, splenomegaly, mass or pulsatile mass. Tenderness: There is abdominal tenderness in the epigastric area. There is no right CVA tenderness, left CVA tenderness, guarding or rebound. Negative signs include Mur (more content not included)... Normal [facility] Lipase SerPl-cCncon 05-22-19 25 Lipase [Catalytic activity/Vol] 182 U/L High 16-61 [facility] Comment on above: Order Comment: Speci men Type: BLOOD SPECIMEN Ordering Facility: [facility] Address: [address] [place] [address] Performed By: #### 2 4323-8, 3040-3 #### [facility] CLIA [id number] [address] [place] [address] [facility] 36on 05-16-2024 36 This [facility] RN called patient for follow up, voicemail received, message left. Normal [facility] CBC W Auto Differential pane l (Bld)on 05-07-2024 Basophils (Bld) [#/Vol] 0 10*3/uL 0.0 - 0.2 10*3/uL [facility] Basophils/100 WBC (Bld) 0.6 % 0.0 - 2.0 % [facility] Eosinophils (Bld) [#/Vol] 0 10*3/uL 0.0 - 0.5 10*3/uL [facility] Eosinophils/100 WBC (Bld) 0.8 % 0.0 - 6.0 % [facility] Erythrocyte distribution width (RBC) [Ratio] 15.6 % High 11.5 - 15.0 % [facility] Hematocrit (Bld) [Volume fraction] 40.9 % 40.0 - 52.0 % [facility] Hemoglobin (Bld) [Mass/Vol] 13.8 g/dL 13.0 - 18.0 g/dL [facility] Immature granulocytes (Bld) [#/Vol] 0 10*3/uL NINF - 0.1 10*3/uL [facility] Immature granulocytes/100 WBC (Bld) 0.2 % 0.0 - 2.0 % [facility] Interpretation and review of laboratory results Abnormal [facility] Lymphocytes (Bld) [#/Vol] 1.7 10*3/uL 1.0 - 4.3 10*3/uL [facility] Lymphocytes/100 WBC (Bld) 33.7 % 15.0 - 45.0 % [facility] MCH (RBC) [Entitic mass] 30.3 pg 26.0 - 34.0 pg [facility] MCHC (RBC) [Mass/Vol] 33.7 % 30.5 - 36.0 % [facility] MCV (RBC) [Entitic vol] 89.9 fL 77.0 - 99.0 fL [facility] Monocytes (Bld) [#/Vol] 0.4 10*3/uL 0.0 - 0.9 10*3/uL [facility] Monocytes/100 WBC (Bld) 8.8 % 5.0 - 13.0 % [facility] Neutrophils (Bld) [#/Vol] 2.8 10*3/uL 1.8 - 7.5 10*3/uL [facility] Neutrophils/100 WBC (Bld) 55.9 % 38.0 - 82.0 % [facility] Nucleated RBC/100 WBC (Bld) [Ratio] 0 % [facility] Platelet mean volume (Bld) [Entitic vol] 10.2 fL 9.0 - 12.7 fL [facility] Comment on above: MPV is a calculated measurement using platelet volume ratio Platelets (Bld) [#/Vol] 170 10*3/uL 140 - 440 10*3/uL [facility] RBC (Bld) [#/Vol] 4.55 10*6/uL 4.40 - 5.9 0 10*6/uL [facility] WBC (Bld) [#/Vol] 5 10*3/uL 3.6 - 10.7 10*3/uL [facility] CBC WITH AUTO DIFFERENTIALon 05-07-2024 Basophils (Bld) [#/Vol] 0.0 10*3/uL Normal 0.0-0.2 [facility] Comment on above: Performed By: #### L [id number] ####Lathe Turner: SHENA GUERIN ([id number])[facility] ([facility])[address] Basophils/100 WBC (Bld) 0.6 % Normal 0.0-2.0 S [facility] Comment on above: Performed By: #### L [id number] ####Lathe Turner: SHENA GUERIN ([id number])[facility] ([facility])[address] [place] [address] [facility] Eosinophils (Bld) [#/Vol] 0.0 10*3/uL Normal 0.0-0.5 [facility] Comment on above: Performed By: #### L [id number] ####Lathe Turner: SHENA GUERIN ([id number])[facility] ([facility])[address] [place] [address] [place] Eosinophils/100 WBC (Bld) 0.8 % Normal 0.0-6.0 [facility] Comment on above: Performed By: #### L [id number] ####Lathe Turner: SHENA GUERIN ([id number])[facility] ([facility])[address] Erythrocyte distribution width (RBC) [Ratio] 15.6 % High 11.5-15.0 [facility] Comment on above: Performed By: #### L [id number] ####Lathe Turner: SHENA CHAMPAGNEBETTY ([id number])[facility] ([facility])[address] Hematocrit (Bld) [Volume fraction] 40.9 % Normal 40.0-52.0 [facility] Comment on above: Performed By: #### L [id number] ####Lathe Turner: SHENA GUERIN ([id number])[facility] ([facility])[address] Hemoglobin (Bld) [Mass/Vol] 13.8 g/dL Normal 13.0-18.0 [facility] Comment on above: Performed By: #### L [id number] ####Lathe Turner: SHENA GUERIN ([id number])[facility] ([facility])[address] [place] [address] [place] IMMATURE GRANS % 0.2 % Normal 0.0-2.0 [facility] Comment on above: Performed By: #### L [id number] ####Lathe Turner: SHENA GUERIN ([id number])[facility] ([facility])[address] [place] [address] [place] IMMATURE GRANS ABSOLUTE 0.0 10*3/uL Normal <0.1 [facility] Comment on above: Performed By: #### L [id number] ####Lathe Turner: SHENA GUERIN ([id number])[facility] Lymphocytes (Bld) [#/Vol] 1.7 10*3/uL Normal 1.0-4.3 [facility] Comment on above: Performed By: #### L [id number] ####Lathe Turner: SHENA GUERIN ([id number])[facility]AMPUSA [facility])[address] Lymphocytes/100 WBC (Bld) 33.7 % Normal 15.0-45.0 [facility] Comment on above: Performed By: #### L [id number] ####Lathe Turner: SHENA GUERIN ([id number])[facility] CAMPUSA rankdeskITAGE [facility] ([facility])[address] MCH (RBC) [Entitic mass] 30.3 pg Normal 26.0-34.0 [facility] Comment on above: Performed By: #### L [id number] ####Lathe Turner: SHENA GUERIN ([id number])[facility] CAMPUSA [facility] ([facility])[address] MCHC 33.7 % Normal 30.5-36.0 [facility] Comment on above: Performed By: #### L [id number] ####Lathe Turner: SHENA GUERIN ([id number])[facility]AMPUSA [facility])[address] MCV (RBC) [Entitic vol] 89.9 fL Normal 77.0-99.0 [facility] Comment on above: Performed By: #### L [id number] ####Lathe Turner: SHENA GUERIN ([id number])[facility] CAMPUSA [facility] ([facility])[address] [place] [address] [place] Monocytes (Bld) [#/Vol] 0.4 10*3/uL Normal 0.0-0.9 [facility] Comment on above: Performed By: #### L [id number] ####Lathe Turner: SHENA GUERIN ([id number])[facility] CAMPUSA [facility] [place] [address] [place] Monocytes/100 WBC (Bld) 8.8 % Normal 5.0-13.0 [facility] Comment on above: Performed By: #### L [id number] ####Lathe Turner: SHENA GUERIN ([id number])[facility] CAMPUSA [facility] ([facility] [place] [address] [place] NEUTROPHILS ABSOLUTE 2.8 10*3/uL Normal 1.8-7.5 [facility] Comment on above: Performed By: #### L [id number] ####Lathe Turner: SHENA GUERIN ([id number])[facility] CAMPUSA [facility] ([facility])[address] [place] [address] [place] Neutrophils/100 WBC (Bld) 55.9 % Normal 38.0-82.0 [facility] Comment on above: Performed By: #### L [id number] ####Lathe Turner: SHENA GUERIN ([id number])[facility] CAMPUSA [facility] ([facility])[address] [place] [address] [facility] NRBC 0.0 /100 WBCs Normal 0.0-2.0 [facility] Comment on above: Performed By: #### L [id number] ####Lathe Turner: SHENA GUERIN ([id number])[facility] CAMPUSA [facility] ([facility])[address] [place] [address] [facility] Platelet mean volume (Bld) [Entitic vol] 10.2 fL Normal 9.0-12.7 [facility] Comment on above: Result Comment: MPV is a calculated measurement using platelet volume ratio Performed By: #### L [id number] ####Lathe Turner: SHENA GUERIN ([id number])[facility] ([facility])[address] Platelets (Bld) [#/Vol] 170 10*3/uL Normal 140-440 [facility] Comment on above: Performed By: #### L [id number] ####Lathe Turner: SHENA GUERIN ([id number])[facility] ([facility])[address] RBC (Bld) [#/Vol] 4.55 10*6/uL Normal 4.40-5.90 [facility] Comment on above: Performed By: #### L [id number] ####Lathe Turner: SHENA GUERIN ([id number])[facility] ([facility])[address] [place] [address] WBC (Bld) [#/Vol] 5.0 10*3/uL Normal 3.6-10.7 [facility] Comment on above: Performed By: #### L [id number] ####Lathe Turner: SHENA GUEIRN ([id number])[facility])[address] [place] [address] COMPREHENSIVE METABOLIC PANE Rylan 05-07-2024 Albumin [Mass/Vol] 3.9 g/dL Normal 3.5-5.0 [facility] Comment on above: Performed By: #### L AB17, LAB99 ####Lathe Turner: SHENA GUERIN ([id number])[facility])[address] [place] [address] ALP [Catalytic activity/Vol] 191 U/L High 40-150 [facility] Comment on above: Performed By: #### L AB17, LAB99 ####Lathe Turner: SHENA GUERIN ([id number])[facility] CAMPUSA [facility])[address] [place] [address] [place] ALT [Catalytic activity/Vol] 118 U/L High <40 [facility] Comment on above: Performed By: #### L AB17, LAB99 ####Lathe Turner: SHENA APOORVA ([id number])[facility] CAMPUSA [facility] [place] [address] [place] Anion gap [Moles/Vol] 15 mmol/L High 3-13 [facility] Comment on above: Performed By: #### L AB17, LAB99 ####Lathe Turner: SHENA APOORVA ([id number])[facility] [place] [address] [place] AST [Catalytic activity/Vol] 179 U/L High <34 [facility] Comment on above: Performed By: #### L AB17, LAB99 ####Lathe Turner: SHENA APOORVA ([id number])[facility] [place] [address] [place] Bilirubin [Mass/Vol] 1.3 mg/dL High <1.2 [facility] Comment on above: Performed By: #### L AB17, LAB99 ####Lathe Turner: SHENA APOORVA ([id number])[facility] ([facility])[address] [place] [address] [place] Calcium [Mass/Vol] 9.2 mg/dL Normal 8.4-10.2 [facility] Comment on above: Performed By: #### L AB17, LAB99 ####Lathe Turner: SHENA DEL ROSARIOHAMIDA ([id number])[facility] [place] [address] [place] Chloride [Moles/Vol] 103 mmol/L Normal 98-107 [facility] Comment on above: Performed By: #### L AB17, LAB99 ####Lathe Turner: SHENA GUERIN ([id number])[facility] ([facility])[address] [place] [address] [place] CO2 [Moles/Vol] 19 mmol/L Low 22-29 [facility] Comment on above: Performed By: #### L AB17, LAB99 ####Lathe Turner: SHENA GUERIN ([id number])[facility])[address] [place] [address] [place] Creatinine [Mass/Vol] 0.63 mg/dL Low 0.72-1.25 [facility] Comment on above: Performed By: #### L 17, LAB99 ####Lathe Turner: SHENA GUERIN ([id number])[facility] ([facility])[address] [place] [address] [place] GLOMERULAR FILTRATION RATE ML/MIN/1.73 SQ M.PREDICTED >90.0 Normal >60.0 [facility] Comment on above: Result Comment: Calc ulation based on the Chronic Kidney Disease Epidemiology Collaboration (CKD-EPI) equation refit without adjustment for race Performed By: #### L 17, LAB99 ####Lathe Turner: SHENA GUERIN ([id number])[facility])[address] [place] [address] [place] Glucose [Mass/Vol] 113 mg/dL High 74-100 [facility] Comment on above: Performed By: #### L AB17, LAB99 ####Lathe Turner: SHENA GUERIN ([id number])[facility])[address] [place] [address] [place] Potassium [Moles/Vol] 3.6 mmol/L Normal 3.5-5.1 [facility] Comment on above: Result Comment: [facility] potassium values may be up to 0.5 mmol/L lower than serum values. Performed By: #### L AB17, LAB99 ####Lathe Turner: SHENA [id number])[facility] ([facility])[address] Protein [Mass/Vol] 7.8 g/dL Normal 6.4-8.3 [facility] Comment on above: Performed By: #### L AB17, LAB99 ####Lathe Turner: SHENA CHAMPAGNEBETTY ([id number])[facility] ([facility])[address] Sodium [Moles/Vol] 137 mmol/L Normal 136-145 [facility] Comment on above: Performed By: #### L AB17, LAB99 ####Lathe Turner: SHENA CHAMPAGNEBETTY ([id number])[facility] ([facility])[address] Urea nitrogen [Mass/Vol] 5 mg/dL Low 8-21 [facility] Comment on above: Performed By: #### L AB17, LAB99 ####Lathe Turner: SHENA CHAMPAGNEBETTY ([id number])[facility] ([facility])[address] [place] [address] CT ABDOMEN PELVIS WO IV CONT RASTon 05-07-2024 CT ABDOMEN PELVIS WO IV CONTRAST Normal [facility] CT ABDOMEN PELVIS WO IV CONTRAST Normal [facility] CT Abdomen and Pelvis WO con traston 05-07-2024 1. Findings compatible with pancreatitis, similar to comparison. Correlation with appropriate laboratory values and follow-up suggested. 2. Hepatosplenomegaly, and hepatic steatosis. Report Dictated on Electronically Signed By: Paul Plata MD Electronically Signed Date/Time: 05/07/2024 5:37 PM [facility] Patient Name: RORO CLAIRE : 1985 Exam Date/Time: 05/07/2024 17:16 Procedure: CT ABDOMEN PELVIS WO IV CONTRAST Ordering Provider: LYONS TYLER Reason For Exam: upper abd pain, eval for pancreatitis or gall bladder pathology CT ABDOMEN AND PELVIS WITHOUT CONTRAST CLINICAL INDICATION: upper abd pain, eval for pancreatitis or gall bladder pathology TECHNIQUE: CT scan of the abdomen and pelvis, without IV contrast. Multiplanar reformations. Dose reduction was employed with automated exposure control. COMPARISON: April,. FINDINGS: Abdomen: Solid organ evaluation limited due to lack of IV contrast. Visualized lung bases grossly unremarkable. No radiopaque gallstones. Liver enlarged and shows diffusely decreased attenuation without focal abnormality. Spleen mildly enlarged measuring approximately 15 cm in maximal dimension, without focal abnormality. Pancreas prominent and demonstrates diffuse soft tissue stranding and infiltration in the peripancreatic fat, about the same. No apparent pseudocyst formation. Kidneys grossly unremarkable. Adrenal glands grossly unremarkable. Pelvis: Bowel grossly unremarkable. Appendix surgically absent. No significant, free peritoneal fluid or loculated fluid collection. Abdominal aorta is nonaneurysmal. Axial skeleton grossly intact. [facility] RADIOLOGY [facility] Paul Plata MD - 05/07/2024 Patient Name: RORO VALDIVIA : 1985 Exam Date/Time: 05/07/2024 17:16 Procedure: CT ABDOMEN PELVIS WO IV CONTRAST Ordering Provider: LYONS TYLER Reason For Exam: upper abd pain, eval for pancreatitis or gall bladder pathology CT ABDOMEN AND PELVIS WITHOUT CONTRAST CLINICAL INDICATION: upper abd pain, eval for pancreatitis or gall bladder pathology TECHNIQUE: CT scan of the abdomen and pelvis, without IV contrast. Multiplanar reformations. Dose reduction was employed with automated exposure control. COMPARISON: April,. FINDINGS: Abdomen: Solid organ evaluation limited due to lack of IV contrast. Visualized lung bases grossly unremarkable. No radiopaque gallstones. Liver enlarged and shows diffusely decreased attenuation without focal abnormality. Spleen mildly enlarged measuring approximately 15 cm in maximal dimension, without focal abnormality. Pancreas prominent and demonstrates diffuse soft tissue stranding and infiltration in the peripancreatic fat, about the same. No apparent pseudocyst formation. Kidneys grossly unremarkable. Adrenal glands grossly unremarkable. Pelvis: Bowel grossly unremarkable. Appendix surgically absent. No significant, free peritoneal fluid or loculated fluid collection. Abdominal aorta is nonaneurysmal. Axial skeleton grossly intact. IMPRESSION: 1. Findings compatible with pancreatitis, similar to comparison. Correlation with appropriate laboratory values and follow-up suggested. 2. Hepatosplenomegaly, and hepatic steatosis. Report Dictated on Electronically Signed By: Paul Plata MD Electronically Signed Date/Time: 05/07/2024 5:37 PM EDT [facility] Radiology Study observation (narrative) [facility] CT Abdomen and Pelvis WO con trastOrdered By: Paul Plata on 05-07-2024 [facility] Work Phone: Comprehensive metabolic 1998 panelon 05-07-2024 Albumin [Mass/Vol] 3.9 g/dL 3.5 - 5.0 g/dL [facility] ALP [Catalytic activity/Vol] 191 U/L High 40 - 150 U/L [facility] ALT [Catalytic activity/Vol] 118 U/L High NINF - 40 U/L [facility] Anion gap [Moles/Vol] 15 mmol/L High 3 - 13 mmol/L [facility] AST [Catalytic activity/Vol] 179 U/L High NINF - 34 U/L [facility] Bilirubin [Mass/Vol] 1.3 mg/dL High NINF - 1.2 mg/dL [facility] Calcium [Mass/Vol] 9.2 mg/dL 8.4 - 10. 2 mg/dL [facility] Chloride [Moles/Vol] 103 mmol/L 98 - 10 7 mmol/L [facility] CO2 [Moles/Vol] 19 mmol/L Low 22 - 29 mmol/L [facility] Creatinine [Mass/Vol] 0.63 mg/dL Low 0.72 - 1.25 mg/dL [facility] GFR/1.73 sq M.predicted (S/P/Bld) [Vol rate/Area] - PINF [facility] Comment on above: Calculation based on the Chronic Kidney Disease Epidemiology Collaboration (CKD-EPI) equation refit without adjustment for race Glucose [Mass/Vol] 113 mg/dL High 74 - 100 mg/dL [facility] Potassium [Moles/Vol] 3.6 mmol/L 3.5 - 5.1 mmol/L [facility] Comment on above: Plasma potassium víctor ues may be up to 0.5 mmol/L lower than serum values. Protein [Mass/Vol] 7.8 g/dL 6.4 - 8.3 g/dL [facility] Sodium [Moles/Vol] 137 mmol/L 136 - 145 mmol/L [facility] Urea nitrogen [Mass/Vol] 5 mg/dL Low 8 - 21 mg/dL [facility] ED Nursing Noteon 05-07-2024 ED Nursing Note Pt states he drank alcohol 3 days ago and then drank this morning. Normal [facility] ED Provider Noteon ED Provider Note Normal [facility] LIPASEon 05-07-2024 Lipase [Catalytic activity/Vol] 127 U/L High <55 [facility] Comment on above: Performed By: #### L AB17, LAB99 ####Lathe Turner: SHENA GUERIN ([id number])[facility] [place] [address] Laboratory - Chemistry and C hemistry - challengeon 05-07-2024 Lipase [Catalytic activity/Vol] 127 U/L High NINF - 55 U/L [facility] No Panel Informationon 05-07 Interpretation and review of laboratory results Abnormal [facility] 36on 04-26-2024 36 This [facility] RN called patient for follow up, voicemail received, message left. [facility] 36 Sent rx! [facility] 36 Fax received from [facility] on 04/25/24 regarding Rx for risperiDONE (RisperDAL) 0.5 MG tablet Patient's insurance will not cover 4 tablets a day. Can you please reorder this at Risperidone 1 mg - twice a day? [facility] 36on 04-23-2024 36 This [facility] RN called patient for follow up phone call, voicemail received, message left. [facility] 36on 04-22-2024 36 Unable to contact patient X2 Normal [facility] 36on 04-21-2024 36 Normal [facility] [id number] 04-20-2024 [id number] [facility] CBC (HEMOGRAM)on 04-20-2024 Erythrocyte distribution width (RBC) [Ratio] 15.5 % High 11.5-15.0 [facility] Comment on above: Performed By: #### L [id number] ####Lathe Turner: JUDITH MARKHAM ([id number])[facility])[address] [place] [address] Hematocrit (Bld) [Volume fraction] 38.8 % Low 40.0-52.0 [facility] Comment on above: Performed By: #### L AB294 ####Lathe Turner: JUDITH MARKHAM ([id number])[address] Hemoglobin (Bld) [Mass/Vol] 12.7 g/dL Low 13.0-18.0 [facility] Comment on above: Performed By: #### L [id number] ####Lathe Turner: JUDITH MARKHAM ([id number])[address] IPF 8 Normal [facility] Comment on above: Performed By: #### L AB294 ####Lathe Turner: JUDITH MARKHAM ([id number])[facility])[address] [place] [address] MCH (RBC) [Entitic mass] 29.9 pg Normal 26.0-34.0 [facility] Comment on above: Performed By: #### L AB294 ####Lathe Turner: JUDITH MARKHAM ([id number])[address] MCHC 32.7 % Normal 30.5-36.0 [facility] Comment on above: Performed By: #### L AB294 ####Lathe Turner: JUDITH MARKHAM ([id number])[facility])[address] [place] [address] MCV (RBC) [Entitic vol] 91.3 fL Normal 77.0-99.0 [facility] Comment on above: Performed By: #### L AB294 ####Lathe Turner: JUDITH [id number])[facility] ([facility])[address] [place] [address] Platelet mean volume (Bld) [Entitic vol] 10.9 fL Normal 9.0-12.7 [facility] Comment on above: Performed By: #### L [id number] ####Lathe Turner: JUDITH MARKHAM ([id number])[facility] ([facility])[address] [place] [address] Platelets (Bld) [#/Vol] 129 10*3/uL Low 140-440 [facility] Comment on above: Performed By: #### L [id number] ####Lathe Turner: JUDITH MARKHAM ([id number])[facility] ([facility])[address] [place] [address] RBC (Bld) [#/Vol] 4.25 10*6/uL Low 4.40-5.90 [facility] Comment on above: Performed By: #### L AB294 ####Lathe Turner: JUDITH MARKHAM ([id number])[facility] ([facility])[address] [place] [address] WBC (Bld) [#/Vol] 4.8 10*3/uL Normal 3.6-10.7 [facility] Comment on above: Performed By: #### L AB294 ####Lathe Turner: JUDITH MARKHAM ([id number])[facility] ([facility])[address] [place] [address] CBC panel Auto (Bld)on 04-20 Erythrocyte distribution width (RBC) [Ratio] 15.5 % High 11.5 - 15.0 % [facility] Hematocrit (Bld) [Volume fraction] 38.8 % Low 40.0 - 52.0 % [facility] Hemoglobin (Bld) [Mass/Vol] 12.7 g/dL Low 13.0 - 18.0 g/dL [facility] Interpretation and review of laboratory results Abnormal [facility] IPF 8 [facility] MCH (RBC) [Entitic mass] 29.9 pg 26.0 - 34.0 pg [facility] MCHC (RBC) [Mass/Vol] 32.7 % 30.5 - 36.0 % [facility] MCV (RBC) [Entitic vol] 91.3 fL 77.0 - 99.0 fL [facility] Platelet mean volume (Bld) [Entitic vol] 10.9 fL 9.0 - 12.7 fL [facility] Platelets (Bld) [#/Vol] 129 10*3/uL Low 140 - 440 10*3/uL [facility] RBC (Bld) [#/Vol] 4.25 10*6/uL Low 4.40 - 5.9 0 10*6/uL [facility] WBC (Bld) [#/Vol] 4.8 10*3/uL 3.6 - 10.7 10*3/uL [facility] COMPREHENSIVE METABOLIC PANE Rylan 04-20-2024 Albumin [Mass/Vol] 3.2 g/dL Low 3.5-5.0 [facility] Comment on above: Performed By: #### L AB17 ####Lathe Turner: JUDITH MARKHAM ([id number])[facility])[address] [place] [address] ALP [Catalytic activity/Vol] 167 U/L High 40-150 [facility] Comment on above: Performed By: #### L AB17 ####Lathe Turner: JUDITH MARKHAM ([id number])[facility])[address] [place] [address] ALT [Catalytic activity/Vol] 83 U/L High <40 [facility] Comment on above: Performed By: #### L AB17 ####Lathe Turner: JUDITH MARKHAM ([id number])[facility])[address] [place] [address] Anion gap [Moles/Vol] 8 mmol/L Normal 3-13 [facility] Comment on above: Performed By: #### L AB17 ####Lathe Turner: JUDITH MARKHAM ([id number])[facility])[address] [place] [address] AST [Catalytic activity/Vol] 162 U/L High <34 [facility] Comment on above: Performed By: #### L AB17 ####Lathe Turner: JUDITH MARKHAM ([id number])[facility] ([facility])[address] [place] [address] Bilirubin [Mass/Vol] 1.5 mg/dL High <1.2 [facility] Comment on above: Performed By: #### L AB17 ####Lathe Turner: JUDITH MARKHAM ([id number])[facility] ([facility])[address] [place] [address] Calcium [Mass/Vol] 9.0 mg/dL Normal 8.4-10.2 [facility] Comment on above: Performed By: #### L AB17 ####Lathe Turner: JUDITH MARKHAM ([phone])[facility])[address] [place] [address] Chloride [Moles/Vol] 107 mmol/L Normal 98-107 [facility] Comment on above: Performed By: #### L AB17 ####Lathe Turner: JUDITH MARKHAM ([id number])[facility] ([facility])[address] [place] [address] CO2 [Moles/Vol] 21 mmol/L Low 22-29 [facility] Comment on above: Performed By: #### L AB17 ####Lathe Turner: JUDITH MARKHAM ([id number])[facility])[address] [place] [address] Creatinine [Mass/Vol] 0.61 mg/dL Low 0.72-1.25 [facility] Comment on above: Performed By: #### L AB17 ####Lathe Turner: JUDITH MARKHAM ([id number])[facility])[address] [place] [address] GLOMERULAR FILTRATION RATE ML/MIN/1.73 SQ M.PREDICTED >90.0 Normal >60.0 [facility] Comment on above: Result Comment: Calc ulation based on the Chronic Kidney Disease Epidemiology Collaboration (CKD-EPI) equation refit without adjustment for race Performed By: #### L AB17 ####Lathe Turner: JUDITH MARKHAM ([id number])[facility] ([facility])[address] [place] [address] Glucose [Mass/Vol] 111 mg/dL High 74-100 [facility] Comment on above: Performed By: #### L AB17 ####Lathe Turner: JUDITH MARKHAM ([id number])[facility] ([facility])[address] [place] [address] Potassium [Moles/Vol] 3.8 mmol/L Normal 3.5-5.1 [facility] Comment on above: Result Comment: [facility] potassium values may be up to 0.5 mmol/L lower than serum values. Performed By: #### L AB17 ####Lathe Turner: JUDITH MARKHAM ([id number])[facility] ([facility])[address] [place] [address] Protein [Mass/Vol] 6.5 g/dL Normal 6.4-8.3 [facility] Comment on above: Performed By: #### L AB17 ####Lathe Turner: JUDITH MARKHAM ([id number])[facility] ([facility])[address] [place] [address] Sodium [Moles/Vol] 136 mmol/L Normal 136-145 [facility] Comment on above: Performed By: #### L AB17 ####Lathe Turner: JUDITH MARKHAM ([id number])[facility] ([facility])[address] [place] [address] Urea nitrogen [Mass/Vol] 3 mg/dL Low 8-21 [facility] Comment on above: Performed By: #### L AB17 ####Lathe Turner: JUDITH MARKHAM ([id number])[facility] ([facility])[address] [place] [address] Comprehensive metabolic 1998 panelon 04-20-2024 Albumin [Mass/Vol] 3.2 g/dL Low 3.5 - 5.0 g/dL [facility] ALP [Catalytic activity/Vol] 167 U/L High 40 - 150 U/L [facility] ALT [Catalytic activity/Vol] 83 U/L High NINF - 40 U/L [facility] Anion gap [Moles/Vol] 8 mmol/L 3 - 13 mmol/L [facility] AST [Catalytic activity/Vol] 162 U/L High NINF - 34 U/L [facility] Bilirubin [Mass/Vol] 1.5 mg/dL High NINF - 1.2 mg/dL [facility] Calcium [Mass/Vol] 9 mg/dL 8.4 - 10. 2 mg/dL [facility] Chloride [Moles/Vol] 107 mmol/L 98 - 10 7 mmol/L [facility] CO2 [Moles/Vol] 21 mmol/L Low 22 - 29 mmol/L [facility] Creatinine [Mass/Vol] 0.61 mg/dL Low 0.72 - 1.25 mg/dL [facility] GFR/1.73 sq M.predicted (S/P/Bld) [Vol rate/Area] - PINF [facility] Comment on above: Calculation based on the Chronic Kidney Disease Epidemiology Collaboration (CKD-EPI) equation refit without adjustment for race Glucose [Mass/Vol] 111 mg/dL High 74 - 100 mg/dL [facility] Interpretation and review of laboratory results Abnormal [facility] Potassium [Moles/Vol] 3.8 mmol/L 3.5 - 5.1 mmol/L [facility] Comment on above: Plasma potassium víctor ues may be up to 0.5 mmol/L lower than serum values. Protein [Mass/Vol] 6.5 g/dL 6.4 - 8.3 g/dL [facility] Sodium [Moles/Vol] 136 mmol/L 136 - 145 mmol/L [facility] Urea nitrogen [Mass/Vol] 3 mg/dL Low 8 - 21 mg/dL [facility] Nursing Noteon 04-20-2024 Nursing Note Discharge instructio meghna reviewed with patient. Patient did not have any further concerns at this time. Normal [facility] Progress Noteon 04-20-2024 Progress Note Normal [facility] CBC (HEMOGRAM)on 04-19-2024 Erythrocyte distribution width (RBC) [Ratio] 15.6 % High 11.5-15.0 [facility] Comment on above: Performed By: #### L [id number] ####Lathe Turner: JUDITH MARKHAM ([id number])[facility] ([address] Hematocrit (Bld) [Volume fraction] 36.3 % Low 40.0-52.0 [facility] Comment on above: Performed By: #### L [id number] ####Lathe Turner: JUDITH MARKHAM ([id number])[facility])[address] [place] [address] Hemoglobin (Bld) [Mass/Vol] 11.7 g/dL Low 13.0-18.0 [facility] Comment on above: Performed By: #### L [id number] ####Lathe Turner: JUDITH MARKHAM ([id number])[facility] ([facility])[address] [place] [address] IPF 6 Normal [facility] Comment on above: Performed By: #### L [id number] ####Lathe Turner: JUDITH MARKHAM ([id number])[facility] ([facility])[address] [place] [address] MCH (RBC) [Entitic mass] 29.5 pg Normal 26.0-34.0 [facility] Comment on above: Performed By: #### L [id number] ####Lathe Turner: JUDITH MARKHAM ([id number])[facility])[address] [place] [address] MCHC 32.2 % Normal 30.5-36.0 [facility] Comment on above: Performed By: #### L [id number] ####Lathe Turner: JUDITH MARKHAM ([id number])[facility])[address] [place] [address] MCV (RBC) [Entitic vol] 91.4 fL Normal 77.0-99.0 [facility] Comment on above: Performed By: #### L AB294 ####Lathe Turner: JUDITH MARKHAM ([id number])[facility])[address] [place] [address] Platelet mean volume (Bld) [Entitic vol] 10.9 fL Normal 9.0-12.7 [facility] Comment on above: Performed By: #### L [id number] ####Lathe Turner: JUDITH MARKHAM ([id number])[facility] ([facility])[address] [place] [address] Platelets (Bld) [#/Vol] 129 10*3/uL Low 140-440 [facility] Comment on above: Performed By: #### L AB294 ####Lathe Turner: JUDITH MARKHAM ([id number])[facility])[address] [place] [address] RBC (Bld) [#/Vol] 3.97 10*6/uL Low 4.40-5.90 [facility] Comment on above: Performed By: #### L AB294 ####Lathe Turner: JUDITH MARKHAM ([id number])[facility])[address] [place] [address] WBC (Bld) [#/Vol] 3.9 10*3/uL Normal 3.6-10.7 [facility] Comment on above: Performed By: #### L AB294 ####Lathe Turner: JUDITH MARKHAM ([id number])[facility] ([facility])[address] [place] [address] CBC panel Auto (Bld)on 04-19 Erythrocyte distribution width (RBC) [Ratio] 15.6 % High 11.5 - 15.0 % [facility] Hematocrit (Bld) [Volume fraction] 36.3 % Low 40.0 - 52.0 % [facility] Hemoglobin (Bld) [Mass/Vol] 11.7 g/dL Low 13.0 - 18.0 g/dL [facility] Interpretation and review of laboratory results Abnormal [facility] IPF 6 [facility] MCH (RBC) [Entitic mass] 29.5 pg 26.0 - 34.0 pg [facility] MCHC (RBC) [Mass/Vol] 32.2 % 30.5 - 36.0 % [facility] MCV (RBC) [Entitic vol] 91.4 fL 77.0 - 99.0 fL [facility] Platelet mean volume (Bld) [Entitic vol] 10.9 fL 9.0 - 12.7 fL [facility] Platelets (Bld) [#/Vol] 129 10*3/uL Low 140 - 440 10*3/uL [facility] RBC (Bld) [#/Vol] 3.97 10*6/uL Low 4.40 - 5.9 0 10*6/uL [facility] WBC (Bld) [#/Vol] 3.9 10*3/uL 3.6 - 10.7 10*3/uL [facility] COMPREHENSIVE METABOLIC PANE Rylan 04-19-2024 Albumin [Mass/Vol] 3.0 g/dL Low 3.5-5.0 [facility] Comment on above: Performed By: #### L AB17, LAB99 ####Lathe Turner: JUDIHT MARKHAM ([id number])[facility] ([facility])[address] [place] [address] ALP [Catalytic activity/Vol] 148 U/L Normal 40-150 [facility] Comment on above: Performed By: #### Iggy JOHNSON17, LAB99 ####Lathe Turner: JUDITH MARKHAM ([id number])[facility] ([facility])[address] [place] [address] ALT [Catalytic activity/Vol] 80 U/L High <40 [facility] Comment on above: Performed By: #### Iggy AB17, LAB99 ####Lathe Turner: JUDITH MARKHAM ([id number])[facility] ([facility])[address] [place] [address] Anion gap [Moles/Vol] 8 mmol/L Normal 3-13 [facility] Comment on above: Performed By: #### L AB17, LAB99 ####Lathe Turner: JUDITH MARKHAM ([id number])[facility] ([facility])[address] [place] [address] [place] AST [Catalytic activity/Vol] 142 U/L High <34 [facility] Comment on above: Performed By: #### L AB17, LAB99 ####Lathe Turner: JUDITH MARKHAM ([id number])[facility] ([facility])[address] [place] [address] Bilirubin [Mass/Vol] 1.5 mg/dL High <1.2 [facility] Comment on above: Performed By: #### L AB17, LAB99 ####Lathe Turner: JUDITH MARKHAM ([id number])[facility] ([facility])[address] [place] [address] Calcium [Mass/Vol] 8.5 mg/dL Normal 8.4-10.2 [facility] Comment on above: Performed By: #### L AB17, LAB99 ####Lathe Turner: JUDITH MARKHAM ([id number])[facility] ([facility])[address] [place] [address] Chloride [Moles/Vol] 108 mmol/L High 98-107 [facility] Comment on above: Performed By: #### Iggy AB17, LAB99 ####Lathe Turner: JUDITH MARKHAM ([id number])[facility] ([facility])[address] [place] [address] CO2 [Moles/Vol] 21 mmol/L Low 22-29 [facility] Comment on above: Performed By: #### Iggy AB17, LAB99 ####Lathe Turner: JUDITH MARKHAM ([id number])[facility] ([facility])[address] [place] [address] Creatinine [Mass/Vol] 0.58 mg/dL Low 0.72-1.25 [facility] Comment on above: Performed By: #### L AB17, LAB99 ####Lathe Turner: JUDITH MARKHAM ([id number])[facility] ([facility])[address] [place] [address] GLOMERULAR FILTRATION RATE ML/MIN/1.73 SQ M.PREDICTED >90.0 Normal >60.0 [facility] Comment on above: Result Comment: Calc ulation based on the Chronic Kidney Disease Epidemiology Collaboration (CKD-EPI) equation refit without adjustment for race Performed By: #### L AB17, LAB99 ####Lathe Turner: JUDITH MARKHAM ([id number])[facility] ([facility])[address] [place] [address] Glucose [Mass/Vol] 81 mg/dL Normal 74-100 [facility] Comment on above: Performed By: #### L AB17, LAB99 ####Lathe Turner: JUDITH MARKHAM ([id number])[facility])[address] [place] [address] Potassium [Moles/Vol] 3.9 mmol/L Normal 3.5-5.1 [facility] Comment on above: Result Comment: [facility] potassium values may be up to 0.5 mmol/L lower than serum values. Performed By: #### L AB17, LAB99 ####Lathe Turner: JUDITH MARKHAM ([id number])[facility] ([facility])[address] [place] [address] Protein [Mass/Vol] 6.0 g/dL Low 6.4-8.3 [facility] Comment on above: Performed By: #### L AB17, LAB99 ####Lathe Turner: JUDITH MARKHAM ([phone])[facility])[address] [place] [address] Sodium [Moles/Vol] 137 mmol/L Normal 136-145 [facility] Comment on above: Performed By: #### L AB17, LAB99 ####Lathe Turner: JUDITH MARKHAM ([id number])[facility])[address] [place] [address] Urea nitrogen [Mass/Vol] mg/dL Low 8-21 [facility] Comment on above: Performed By: #### L AB17, LAB99 ####Lathe Turner: JUDITH MARKHAM ([id number])[facility])[address] [place] [address] Comprehensive metabolic 1998 panelon 04-19-2024 Albumin [Mass/Vol] 3 g/dL Low 3.5 - 5.0 g/dL [facility] ALP [Catalytic activity/Vol] 148 U/L 40 - 150 U/L [facility] ALT [Catalytic activity/Vol] 80 U/L High NINF - 40 U/L [facility] Anion gap [Moles/Vol] 8 mmol/L 3 - 13 mmol/L [facility] AST [Catalytic activity/Vol] 142 U/L High NINF - 34 U/L [facility] Bilirubin [Mass/Vol] 1.5 mg/dL High NINF - 1.2 mg/dL [facility] Calcium [Mass/Vol] 8.5 mg/dL 8.4 - 10. 2 mg/dL [facility] Chloride [Moles/Vol] 108 mmol/L High 98 - 10 7 mmol/L [facility] CO2 [Moles/Vol] 21 mmol/L Low 22 - 29 mmol/L [facility] Creatinine [Mass/Vol] 0.58 mg/dL Low 0.72 - 1.25 mg/dL [facility] GFR/1.73 sq M.predicted (S/P/Bld) [Vol rate/Area] - PINF [facility] Comment on above: Calculation based on the Chronic Kidney Disease Epidemiology Collaboration (CKD-EPI) equation refit without adjustment for race Glucose [Mass/Vol] 81 mg/dL 74 - 100 mg/dL [facility] Interpretation and review of laboratory results Abnormal [facility] Potassium [Moles/Vol] 3.9 mmol/L 3.5 - 5.1 mmol/L [facility] Comment on above: Plasma potassium víctor ues may be up to 0.5 mmol/L lower than serum values. Protein [Mass/Vol] 6 g/dL Low 6.4 - 8.3 g/dL [facility] Sodium [Moles/Vol] 137 mmol/L 136 - 145 mmol/L [facility] Urea nitrogen [Mass/Vol] mg/dL Low 8 - 21 mg/dL [facility] LIPASEon 04-19-2024 Lipase [Catalytic activity/Vol] 51 U/L Normal <55 [facility] Comment on above: Performed By: #### L AB17, LAB99 ####Lathe Turner: JUDITH MARKHAM ([id number])[facility] ([facility] Laboratory - Chemistry and C hemistry - challengeon 04-19-2024 Lipase [Catalytic activity/Vol] 51 U/L NINF - 55 U/L [facility] Lipase [Catalytic activity/V ol]on 04-19-2024 Interpretation and review of laboratory results Normal [facility] Nursing Noteon 04-19-2024 Nursing Note Pt c/o pAIN IN ABD A ND RATES AT 09/18. Pt medicated with dilaudid 0.5mg IV per PRN order. Pt reports medication effective Normal [facility] Progress Noteon 04-19-2024 Progress Note Normal [facility] Progress Note Normal [facility] [id number] 04-18-2024 [id number] PT HERE FOR ALCOHOL DETOX, + COVID. CURRENTLY ON RA. PO PHENOBARB TAPER. ADDICTION MED FOLLOWING. ANTICIPATE DISCHARGE TO HOME WITH MOM AND NO NEEDS. Normal [facility] [id number] Normal [facility] CBC (HEMOGRAM)on 04-18-2024 Erythrocyte distribution width (RBC) [Ratio] 15.9 % High 11.5-15.0 [facility] Comment on above: Performed By: #### L AB294 ####Lathe Turner: JUDITH MARKHAM ([id number])[address] Hematocrit (Bld) [Volume fraction] 37.8 % Low 40.0-52.0 [facility] Comment on above: Performed By: #### L AB294 ####Lathe Turner: JUDITH MARKHAM ([id number])[address] Hemoglobin (Bld) [Mass/Vol] 11.8 g/dL Low 13.0-18.0 [facility] Comment on above: Performed By: #### L AB294 ####Lathe Turner: JUDITH MARKHAM ([id number])[address] MCH (RBC) [Entitic mass] 28.9 pg Normal 26.0-34.0 [facility] Comment on above: Performed By: #### L AB294 ####Lathe Turner: JUDITH MARKHAM ([id number])[address] MCHC 31.2 % Normal 30.5-36.0 [facility] Comment on above: Performed By: #### L AB294 ####Lathe Turner: JUDITH MARKHAM ([id number])[facility] ([facility])[address] [place] [address] MCV (RBC) [Entitic vol] 92.6 fL Normal 77.0-99.0 [facility] Comment on above: Performed By: #### L AB294 ####Lathe Turner: JUDITH MARKHAM ([id number])[facility])[address] [place] [address] Platelet mean volume (Bld) [Entitic vol] 10.1 fL Normal 9.0-12.7 [facility] Comment on above: Performed By: #### L AB294 ####Lathe Turner: JUDITH MARKHAM ([id number])[facility])[address] [place] [address] Platelets (Bld) [#/Vol] 133 10*3/uL Low 140-440 [facility] Comment on above: Performed By: #### L AB294 ####Lathe Turner: JUDITH MARKHAM ([id number])[facility] ([facility])[address] [place] [address] RBC (Bld) [#/Vol] 4.08 10*6/uL Low 4.40-5.90 [facility] Comment on above: Performed By: #### L AB294 ####Lathe Turner: JUDITH MARKHAM ([id number])[facility])[address] [place] [address] WBC (Bld) [#/Vol] 3.4 10*3/uL Low 3.6-10.7 [facility] Comment on above: Performed By: #### L AB294 ####Lathe Turner: JUDITH MARKHAM ([id number])[facility])[address] [place] [address] CBC panel Auto (Bld)Ordered By: Megha Lopez on 04-18-2024 Erythrocyte distribution width (RBC) [Ratio] 15.9 % High 11.5 - 15.0 % [facility] Hematocrit (Bld) [Volume fraction] 37.8 % Low 40.0 - 52.0 % [facility] Hemoglobin (Bld) [Mass/Vol] 11.8 g/dL Low 13.0 - 18.0 g/dL [facility] Interpretation and review of laboratory results Abnormal [facility] MCH (RBC) [Entitic mass] 28.9 pg 26.0 - 34.0 pg [facility] MCHC (RBC) [Mass/Vol] 31.2 % 30.5 - 36.0 % [facility] MCV (RBC) [Entitic vol] 92.6 fL 77.0 - 99.0 fL [facility] Platelet mean volume (Bld) [Entitic vol] 10.1 fL 9.0 - 12.7 fL [facility] Platelets (Bld) [#/Vol] 133 10*3/uL Low 140 - 440 10*3/uL [facility] RBC (Bld) [#/Vol] 4.08 10*6/uL Low 4.40 - 5.9 0 10*6/uL [facility] WBC (Bld) [#/Vol] 3.4 10*3/uL Low 3.6 - 10.7 10*3/uL [facility] COMPREHENSIVE METABOLIC PANE Rylan 04-18-2024 Albumin [Mass/Vol] 3.0 g/dL Low 3.5-5.0 [facility] Comment on above: Performed By: #### L AB17, LAB99 ####Lathe Turner: JUDITH MARKHAM ([id number])[address] ALP [Catalytic activity/Vol] 145 U/L Normal 40-150 [facility] Comment on above: Performed By: #### L AB17, LAB99 ####Lathe Turner: JUDITH MARKHAM ([id number])[facility] ([facility])[address] [place] [address] ALT [Catalytic activity/Vol] 95 U/L High <40 [facility] Comment on above: Performed By: #### L AB17, LAB99 ####Lathe Turner: JUDITH MARKHAM ([id number])[facility])[address] [place] [address] Anion gap [Moles/Vol] 8 mmol/L Normal 3-13 [facility] Comment on above: Performed By: #### L AB17, LAB99 ####Lathe Turner: JUDITH MARKHAM ([id number])[facility])[address] [place] [address] AST [Catalytic activity/Vol] 163 U/L High <34 [facility] Comment on above: Performed By: #### L AB17, LAB99 ####Lathe Turner: JUDITH MARKHAM ([id number])[facility] ([facility])[address] [place] [address] Bilirubin [Mass/Vol] 1.7 mg/dL High <1.2 [facility] Comment on above: Performed By: #### L AB17, LAB99 ####Lathe Turner: JUDITH MARKHAM ([id number])[facility])[address] [place] [address] Calcium [Mass/Vol] 8.5 mg/dL Normal 8.4-10.2 [facility] Comment on above: Performed By: #### L AB17, LAB99 ####Lathe Turner: JUDITH MARKHAM ([id number])[facility] ([facility])[address] [place] [address] Chloride [Moles/Vol] 108 mmol/L High 98-107 [facility] Comment on above: Performed By: #### L AB17, LAB99 ####Lathe Turner: JUDITH MARKHAM ([id number])[facility])[address] [place] [address] CO2 [Moles/Vol] 22 mmol/L Normal 22-29 [facility] Comment on above: Performed By: #### L AB17, LAB99 ####Lathe Turner: JUDITH MARKHAM ([id number])[facility])[address] [place] [address] Creatinine [Mass/Vol] 0.54 mg/dL Low 0.72-1.25 [facility] Comment on above: Performed By: #### L AB17, LAB99 ####Lathe Turner: JUDITH MARKHAM ([id number])[facility])[address] [place] [address] GLOMERULAR FILTRATION RATE ML/MIN/1.73 SQ M.PREDICTED >90.0 Normal >60.0 [facility] Comment on above: Result Comment: Calc ulation based on the Chronic Kidney Disease Epidemiology Collaboration (CKD-EPI) equation refit without adjustment for race Performed By: #### L AB17, LAB99 ####Lathe Turner: JUDITH MARKHAM ([id number])[facility])[address] [place] [address] Glucose [Mass/Vol] 101 mg/dL High 74-100 [facility] Comment on above: Performed By: #### L AB17, LAB99 ####Lathe Turner: JUDITH MARKHAM ([phone])[facility])[address] [place] [address] Potassium [Moles/Vol] 3.8 mmol/L Normal 3.5-5.1 [facility] Comment on above: Result Comment: [facility] potassium values may be up to 0.5 mmol/L lower than serum values. Performed By: #### L AB17, LAB99 ####Lathe Turner: JUDITH MARKHAM ([phone])[facility])[address] [place] [address] [place] Protein [Mass/Vol] 5.9 g/dL Low 6.4-8.3 [facility] Comment on above: Performed By: #### L AB17, LAB99 ####Lathe Turner: JUDITH MARKHAM ([id number])[facility])[address] [place] [address] [place] Sodium [Moles/Vol] 138 mmol/L Normal 136-145 [facility] Comment on above: Performed By: #### L AB17, LAB99 ####Lathe Turner: JUDITH MARKHAM ([id number])[facility])[address] [place] [address] [place] Urea nitrogen [Mass/Vol] 3 mg/dL Low 8-21 [facility] Comment on above: Performed By: #### L AB17, LAB99 ####Lathe Turner: JUDITH MARKHAM ([id number])[address] Comprehensive metabolic 1998 panelon 04-18-2024 Albumin [Mass/Vol] 3 g/dL Low 3.5 - 5.0 g/dL [facility] ALP [Catalytic activity/Vol] 145 U/L 40 - 150 U/L [facility] ALT [Catalytic activity/Vol] 95 U/L High NINF - 40 U/L [facility] Anion gap [Moles/Vol] 8 mmol/L 3 - 13 mmol/L [facility] AST [Catalytic activity/Vol] 163 U/L High NINF - 34 U/L [facility] Bilirubin [Mass/Vol] 1.7 mg/dL High NINF - 1.2 mg/dL [facility] Calcium [Mass/Vol] 8.5 mg/dL 8.4 - 10. 2 mg/dL [facility] Chloride [Moles/Vol] 108 mmol/L High 98 - 10 7 mmol/L [facility] CO2 [Moles/Vol] 22 mmol/L 22 - 29 mmol/L [facility] Creatinine [Mass/Vol] 0.54 mg/dL Low 0.72 - 1.25 mg/dL [facility] GFR/1.73 sq M.predicted (S/P/Bld) [Vol rate/Area] - PINF [facility] Comment on above: Calculation based on the Chronic Kidney Disease Epidemiology Collaboration (CKD-EPI) equation refit without adjustment for race Glucose [Mass/Vol] 101 mg/dL High 74 - 100 mg/dL [facility] Interpretation and review of laboratory results Abnormal [facility] Potassium [Moles/Vol] 3.8 mmol/L 3.5 - 5.1 mmol/L [facility] Comment on above: Plasma potassium víctor ues may be up to 0.5 mmol/L lower than serum values. Protein [Mass/Vol] 5.9 g/dL Low 6.4 - 8.3 g/dL [facility] Sodium [Moles/Vol] 138 mmol/L 136 - 145 mmol/L [facility] Urea nitrogen [Mass/Vol] 3 mg/dL Low 8 - 21 mg/dL [facility] LIPASEon 04-18-2024 Lipase [Catalytic activity/Vol] 66 U/L High <55 [facility] Comment on above: Performed By: #### L AB17, LAB99 ####Lathe Turner: JUDITH MARKHAM ([phone])[facility])[address] [place] [address] Laboratory - Chemistry and C hemistry - challengeon 04-18-2024 Lipase [Catalytic activity/Vol] 66 U/L High NINF - 55 U/L [facility] Lipase [Catalytic activity/V ol]on 04-18-2024 Interpretation and review of laboratory results Abnormal [facility] Nursing Noteon 04-18-2024 Nursing Note Normal [facility] Progress Noteon 04-18-2024 Progress Note Nutrition rescreen completed. Chart reviewed. Patient's diet advanced, monitor tolerance to diet. Patient to be monitored and followed by the diet copier field service technician. Dietitian available upon request. RALPH Everett Normal [facility] Progress Note Normal [facility] Progress Note Normal [facility] CBC (HEMOGRAM)on 04-17-2024 Erythrocyte distribution width (RBC) [Ratio] 16.3 % High 11.5-15.0 [facility] Comment on above: Performed By: #### L [id number] ####Lathe Turner: JUDITH MARKHAM ([id number])[address] Hematocrit (Bld) [Volume fraction] 37.4 % Low 40.0-52.0 [facility] Comment on above: Performed By: #### L [id number] ####Lathe Turner: JUDITH MARKHAM ([id number])[address] Hemoglobin (Bld) [Mass/Vol] 11.9 g/dL Low 13.0-18.0 [facility] Comment on above: Performed By: #### L [id number] ####Lathe Turner: JUDITH MARKHAM ([id number])[address] MCH (RBC) [Entitic mass] 29.3 pg Normal 26.0-34.0 [facility] Comment on above: Performed By: #### L [id number] ####Lathe Turner: JUDITH MARKHAM ([id number])[facility])[address] [place] [address] MCHC 31.8 % Normal 30.5-36.0 [facility] Comment on above: Performed By: #### L [id number] ####Lathe Turner: JUDITH MARKHAM ([id number])[facility])[address] [place] [address] MCV (RBC) [Entitic vol] 92.1 fL Normal 77.0-99.0 [facility] Comment on above: Performed By: #### L [id number] ####Lathe Turner: JUDITH MARKHAM ([id number])[facility])[address] [place] [address] Platelet mean volume (Bld) [Entitic vol] 10.0 fL Normal 9.0-12.7 [facility] Comment on above: Performed By: #### L [id number] ####Lathe Turner: JUDITH MARKHAM ([id number])[facility])[address] [place] [address] Platelets (Bld) [#/Vol] 155 10*3/uL Normal 140-440 [facility] Comment on above: Performed By: #### L [id number] ####Lathe Turner: JUDITH MARKHAM ([id number])[facility])[address] [place] [address] RBC (Bld) [#/Vol] 4.06 10*6/uL Low 4.40-5.90 [facility] Comment on above: Performed By: #### L [id number] ####Lathe Turner: JUDITH MARKHAM ([id number])[facility])[address] [place] [address] WBC (Bld) [#/Vol] 4.2 10*3/uL Normal 3.6-10.7 [facility] Comment on above: Performed By: #### L [id number] ####Lathe Turner: JUDITH MARKHAM ([id number])[facility])[address] [place] [address] CBC panel Auto (Bld)Ordered By: William Montelongo on 04-17-2024 Erythrocyte distribution width (RBC) [Ratio] 16.3 % High 11.5 - 15.0 % [facility] Hematocrit (Bld) [Volume fraction] 37.4 % Low 40.0 - 52.0 % [facility] Hemoglobin (Bld) [Mass/Vol] 11.9 g/dL Low 13.0 - 18.0 g/dL [facility] Interpretation and review of laboratory results Abnormal [facility] MCH (RBC) [Entitic mass] 29.3 pg 26.0 - 34.0 pg [facility] MCHC (RBC) [Mass/Vol] 31.8 % 30.5 - 36.0 % [facility] MCV (RBC) [Entitic vol] 92.1 fL 77.0 - 99.0 fL [facility] Platelet mean volume (Bld) [Entitic vol] 10 fL 9.0 - 12.7 fL [facility] Platelets (Bld) [#/Vol] 155 10*3/uL 140 - 440 10*3/uL [facility] RBC (Bld) [#/Vol] 4.06 10*6/uL Low 4.40 - 5.9 0 10*6/uL [facility] WBC (Bld) [#/Vol] 4.2 10*3/uL 3.6 - 10.7 10*3/uL [facility] COMPREHENSIVE METABOLIC PANE Rylan 04-17-2024 Albumin [Mass/Vol] 3.5 g/dL Normal 3.5-5.0 [facility] Comment on above: Performed By: #### L AB103, LAB99, LAB17 ####Lathe Turner: JUDITH MARKHAM ([id number])[facility] ([facility])[address] [place] [address] ALP [Catalytic activity/Vol] 172 U/L High 40-150 [facility] Comment on above: Performed By: #### L AB103, LAB99, LAB17 ####Lathe Turner: JUDITH MARKHAM ([id number])[facility] ([facility])[address] [place] [address] [place] ALT [Catalytic activity/Vol] 117 U/L High <40 [facility] Comment on above: Performed By: #### L AB103, LAB99, LAB17 ####Lathe Turner: JUDITH MARKHAM ([id number])[facility] ([facility])[address] [place] [address] Anion gap [Moles/Vol] 13 mmol/L Normal 3-13 [facility] Comment on above: Performed By: #### L AB103, LAB99, LAB17 ####Lathe Turner: JUDITH MARKHAM ([id number])[facility])[address] [place] [address] AST [Catalytic activity/Vol] 387 U/L High <34 [facility] Comment on above: Performed By: #### Iggy MCDONALD, LAB99, LAB17 ####Lathe Turner: JUDITH MARKHAM ([id number])[facility] ([facility])[address] [place] [address] Bilirubin [Mass/Vol] 1.0 mg/dL Normal <1.2 [facility] Comment on above: Performed By: #### Iggy MCDONALD, LAB99, LAB17 ####Lathe Turner: JUDITH MARKHAM ([id number])[facility] ([facility])[address] [place] [address] [place] Calcium [Mass/Vol] 7.8 mg/dL Low 8.4-10.2 [facility] Comment on above: Performed By: #### L AB103, LAB99, LAB17 ####Lathe Turner: JUDITH MARKHAM ([id number])[facility])[address] [place] [address] [place] Chloride [Moles/Vol] 108 mmol/L High 98-107 [facility] Comment on above: Performed By: #### L AB103, LAB99, LAB17 ####Lathe Turner: JUDITH MARKHAM ([id number])[facility] ([facility])[address] [place] [address] [place] CO2 [Moles/Vol] 21 mmol/L Low 22-29 [facility] Comment on above: Performed By: #### Iggy MCDONALD, LAB99, LAB17 ####Lathe Turner: JUDITH MARKHAM ([id number])[facility])[address] [place] [address] Creatinine [Mass/Vol] 0.61 mg/dL Low 0.72-1.25 [facility] Comment on above: Performed By: #### Iggy MCDONALD, LAB99, LAB17 ####Lathe Turner: JUDITH MARKHAM ([id number])[facility])[address] [place] [address] GLOMERULAR FILTRATION RATE ML/MIN/1.73 SQ M.PREDICTED >90.0 Normal >60.0 [facility] Comment on above: Result Comment: Calc ulation based on the Chronic Kidney Disease Epidemiology Collaboration (CKD-EPI) equation refit without adjustment for race Performed By: #### Iggy MCDONALD, LAB99, LAB17 ####Lathe Turner: JUDITH MARKHAM ([id number])[facility])[address] [place] [address] Glucose [Mass/Vol] 89 mg/dL Normal 74-100 [facility] Comment on above: Performed By: #### Iggy MCDONALD, LAB99, LAB17 ####Lathe Turner: JUDITH MARKHAM ([phone])[facility])[address] [place] [address] Potassium [Moles/Vol] 3.7 mmol/L Normal 3.5-5.1 [facility] Comment on above: Result Comment: [facility] potassium values may be up to 0.5 mmol/L lower than serum values. Performed By: #### Iggy MCDONALD, LAB99, LAB17 ####Lathe Turner: JUDITH MARKHAM ([id number])[facility])[address] [place] [address] Protein [Mass/Vol] 6.2 g/dL Low 6.4-8.3 [facility] Comment on above: Performed By: #### Iggy MCDONALD, LAB99, LAB17 ####Lathe Turner: JUDITH MARKHAM ([phone])[facility] ([facility])[address] [place] [address] Sodium [Moles/Vol] 142 mmol/L Normal 136-145 [facility] Comment on above: Performed By: #### L AB103, LAB99, LAB17 ####Lathe Turner: JUDITH MARKHAM ([id number])[facility] ([facility])[address] [place] [address] Urea nitrogen [Mass/Vol] 5 mg/dL Low 8-21 [facility] Comment on above: Performed By: #### L AB103, LAB99, LAB17 ####Lathe Turner: JUDITH MARKHAM ([id number])[facility] ([facility])[address] [place] [address] Comprehensive metabolic 1998 panelon 04-17-2024 Albumin [Mass/Vol] 3.5 g/dL 3.5 - 5.0 g/dL [facility] ALP [Catalytic activity/Vol] 172 U/L High 40 - 150 U/L [facility] ALT [Catalytic activity/Vol] 117 U/L High NINF - 40 U/L [facility] Anion gap [Moles/Vol] 13 mmol/L 3 - 13 mmol/L [facility] AST [Catalytic activity/Vol] 387 U/L High [facility] - 34 U/L [facility] Bilirubin [Mass/Vol] 1 mg/[facility]/dL [facility] Calcium [Mass/Vol] 7.8 mg/dL Low 8.4 - 10. 2 mg/dL [facility] Chloride [Moles/Vol] 108 mmol/L High 98 - 10 7 mmol/L [facility] CO2 [Moles/Vol] 21 mmol/L Low 22 - 29 mmol/L [facility] Creatinine [Mass/Vol] 0.61 mg/dL Low 0.72 - 1.25 mg/dL [facility] GFR/1.73 sq M.predicted (S/P/Bld) [Vol rate/Area] - PINF [facility] Comment on above: Calculation based on the Chronic Kidney Disease Epidemiology Collaboration (CKD-EPI) equation refit without adjustment for race Glucose [Mass/Vol] 89 mg/dL 74 - 100 mg/dL [facility] Potassium [Moles/Vol] 3.7 mmol/L 3.5 - 5.1 mmol/L [facility] Comment on above: Plasma potassium víctor ues may be up to 0.5 mmol/L lower than serum values. Protein [Mass/Vol] 6.2 g/dL Low 6.4 - 8.3 g/dL [facility] Sodium [Moles/Vol] 142 mmol/L 136 - 145 mmol/L [facility] Urea nitrogen [Mass/Vol] 5 mg/dL Low 8 - 21 mg/dL [facility] Consulton 04-17-2024 Consult Normal [facility] LACTIC ACID WITH REFLEXon Lactate [Moles/Vol] 1.8 mmol/L Normal 0.5-2.2 [facility] Comment on above: Performed By: #### L [id number] ####Lathe Turner: JUDITH MARKHAM ([id number])[facility])[address] [place] [address] LIPASEon 04-17-2024 Lipase [Catalytic activity/Vol] 105 U/L High <55 [facility] Comment on above: Performed By: #### L AB103, LAB99, LAB17 ####Lathe Turner: JUDITH MARKHAM ([id number])[facility])[address] [place] [address] Laboratory - Chemistry and C hemistry - challengeon 04-17-2024 Lipase [Catalytic activity/Vol] 105 U/L High NINF - 55 U/L [facility] Magnesium [Mass/Vol] 2.1 mg/dL 1.6 - 2 .6 mg/dL [facility] Lactate [Moles/Vol] 1.8 mmol/L 0.5 - 2. 2 mmol/L [facility] MAGNESIUMon 04-17-2024 Magnesium [Mass/Vol] 2.1 mg/dL Normal 1.6-2.6 [facility] Comment on above: Result Comment: PIEDAD Echeverria COMMENTS:Higher values can be expected in females during menses. Performed By: #### L AB103, LAB99, LAB17 ####Lathe Turner: JUDITH MARKHAM ([id number])[facility] ([facility])[address] [place], [place] [id number] [facility] Magnesium [Mass/Vol]on 04-17 Interpretation and review of laboratory results Normal [facility] Higher values can be expected in females during menses. [facility] No Panel Informationon 04-17 Interpretation and review of laboratory results Abnormal [facility] Interpretation and review of laboratory results Normal [facility] Progress Noteon 04-17-2024 Progress Note Normal [facility] CBC W Auto Differential pane l (Bld)on 04-16-2024 Basophils (Bld) [#/Vol] 0.1 10*3/uL 0.0 - 0.2 10*3/uL [facility] Basophils/100 WBC (Bld) 0.7 % 0.0 - 2.0 % [facility] Eosinophils (Bld) [#/Vol] 0.1 10*3/uL 0.0 - 0.5 10*3/uL [facility] Eosinophils/100 WBC (Bld) 1.2 % 0.0 - 6.0 % [facility] Erythrocyte distribution width (RBC) [Ratio] 16.7 % High 11.5 - 15.0 % [facility] Hematocrit (Bld) [Volume fraction] 45.4 % 40.0 - 52.0 % [facility] Hemoglobin (Bld) [Mass/Vol] 14.9 g/dL 13.0 - 18.0 g/dL [facility] Immature granulocytes (Bld) [#/Vol] 0 10*3/uL NINF - 0.1 10*3/uL [facility] Immature granulocytes/100 WBC (Bld) 0.3 % 0.0 - 2.0 % [facility] Interpretation and review of laboratory results Abnormal [facility] Lymphocytes (Bld) [#/Vol] 3.5 10*3/uL 1.0 - 4.3 10*3/uL [facility] Lymphocytes/100 WBC (Bld) 47.3 % High 15.0 - 45.0 % [facility] MCH (RBC) [Entitic mass] 29.4 pg 26.0 - 34.0 pg [facility] MCHC (RBC) [Mass/Vol] 32.8 % 30.5 - 36.0 % [facility] MCV (RBC) [Entitic vol] 89.5 fL 77.0 - 99.0 fL [facility] Monocytes (Bld) [#/Vol] 0.3 10*3/uL 0.0 - 0.9 10*3/uL [facility] Monocytes/100 WBC (Bld) 4.1 % Low 5.0 - 13.0 % [facility] Neutrophils (Bld) [#/Vol] 3.5 10*3/uL 1.8 - 7.5 10*3/uL [facility] Neutrophils/100 WBC (Bld) 46.4 % 38.0 - 82.0 % [facility] Nucleated RBC/100 WBC (Bld) [Ratio] 0 % [facility] Platelet mean volume (Bld) [Entitic vol] 9.6 fL 9.0 - 12.7 fL [facility] Platelets (Bld) [#/Vol] 311 10*3/uL 140 - 440 10*3/uL [facility] RBC (Bld) [#/Vol] 5.07 10*6/uL 4.40 - 5.9 0 10*6/uL [facility] WBC (Bld) [#/Vol] 7.5 10*3/uL 3.6 - 10.7 10*3/uL [facility] CBC WITH AUTO DIFFERENTIALon 04-16-2024 Basophils (Bld) [#/Vol] 0.1 10*3/uL Normal 0.0-0.2 [facility] Comment on above: Performed By: #### L [id number] ####Lathe Turner: JUDITH MARKHAM ([id number])[address] Basophils/100 WBC (Bld) 0.7 % Normal 0.0-2.0 [facility] Comment on above: Performed By: #### L [id number] ####Lathe Turner: JUDITH [id number])[facility] ([facility])[address] [place] [address] Eosinophils (Bld) [#/Vol] 0.1 10*3/uL Normal 0.0-0.5 [facility] Comment on above: Performed By: #### L [id number] ####Lathe Turner: JUDITH [id number] Eosinophils/100 WBC (Bld) 1.2 % Normal 0.0-6.0 [facility] Comment on above: Performed By: #### L [id number] ####Lathe Turner: JUDITH MARKHAM ([id number])[facility])[address] [place] [address] Erythrocyte distribution width (RBC) [Ratio] 16.7 % High 11.5-15.0 [facility] Comment on above: Performed By: #### L [id number] ####Lathe Turner: JUDITH MARKHAM ([id number])[facility])[address] [place] [address] Hematocrit (Bld) [Volume fraction] 45.4 % Normal 40.0-52.0 [facility] Comment on above: Performed By: #### L [id number] ####Lathe Turner: JUDITH MARKHAM ([phone])[facility])[address] [place] [address] Hemoglobin (Bld) [Mass/Vol] 14.9 g/dL Normal 13.0-18.0 [facility] Comment on above: Performed By: #### L [id number] ####Lathe Turner: JUDITH MARKHAM ([phone])[facility])[address] [place] [address] IMMATURE GRANS % 0.3 % Normal 0.0-2.0 [facility] Comment on above: Performed By: #### L [id number] ####Lathe Turner: JUDITH MARKHAM ([id number])[address] IMMATURE GRANS ABSOLUTE 0.0 10*3/uL Normal <0.1 [facility] Comment on above: Performed By: #### L [id number] ####Lathe Turner: JUDITH MARKHAM ([id number])[facility])[address] [place] [address] Lymphocytes (Bld) [#/Vol] 3.5 10*3/uL Normal 1.0-4.3 [facility] Comment on above: Performed By: #### L [id number] ####Lathe Turner: JUDITH MARKHAM ([id number])[facility])[address] [place] [address] Lymphocytes/100 WBC (Bld) 47.3 % High 15.0-45.0 [facility] Comment on above: Performed By: #### L [id number] ####Lathe Turner: JUDITH MARKHAM ([id number])[facility])[address] [place] [address] MCH (RBC) [Entitic mass] 29.4 pg Normal 26.0-34.0 [facility] Comment on above: Performed By: #### L [id number] ####Lathe Turner: JUDITH MARKHAM ([phone])[facility])[address] [place] [address] MCHC 32.8 % Normal 30.5-36.0 [facility] Comment on above: Performed By: #### L [id number] ####Lathe Turner: JUDITH MARKHAM ([id number])[facility])[address] [place] [address] MCV (RBC) [Entitic vol] 89.5 fL Normal 77.0-99.0 [facility] Comment on above: Performed By: #### L [id number] ####Lathe Turner: JUDITH MARKHAM ([id number])[facility])[address] [place] [address] Monocytes (Bld) [#/Vol] 0.3 10*3/uL Normal 0.0-0.9 [facility] Comment on above: Performed By: #### L [id number] ####Lathe Turner: JUDITH MARKHAM ([id number])[facility])[address] [place] [address] Monocytes/100 WBC (Bld) 4.1 % Low 5.0-13.0 [facility] Comment on above: Performed By: #### L [id number] ####Lathe Turner: JUDITH MARKHAM ([id number])[facility] ([facility])[address] [place] [address] NEUTROPHILS ABSOLUTE 3.5 10*3/uL Normal 1.8-7.5 [facility] Comment on above: Performed By: #### L [id number] ####Lathe Turner: JUDITH MARKHAM ([id number])[facility])[address] [place] [address] Neutrophils/100 WBC (Bld) 46.4 % Normal 38.0-82.0 [facility] Comment on above: Performed By: #### L [id number] ####Lathe Turner: JUDITH MARKHAM ([id number])[facility])[address] [place] [address] NRBC 0.0 /100 WBCs Normal 0.0-2.0 [facility] Comment on above: Performed By: #### L [id number] ####Lathe Turner: JUDITH MARKHAM ([id number])[facility])[address] [place] [address] Platelet mean volume (Bld) [Entitic vol] 9.6 fL Normal 9.0-12.7 [facility] Comment on above: Performed By: #### L [id number] ####Lathe Turner: JUDITH MARKHAM ([id number])[facility])[address] [place] [address] Platelets (Bld) [#/Vol] 311 10*3/uL Normal 140-440 [facility] Comment on above: Performed By: #### L [id number] ####Lathe Turner: JUDITH MARKHAM ([id number])[facility])[address] [place] [address] RBC (Bld) [#/Vol] 5.07 10*6/uL Normal 4.40-5.90 [facility] Comment on above: Performed By: #### L [id number] ####Lathe Turner: JUDITH MARKHAM ([id number])[facility] ([facility])[address] [place] [address] WBC (Bld) [#/Vol] 7.5 10*3/uL Normal 3.6-10.7 [facility] Comment on above: Performed By: #### L [id number] ####Lathe Turner: JUDITH MARKHAM ([id number])[facility] ([facility])[address] [place] [address] COMPREHENSIVE METABOLIC PANE Rylan 04-16-2024 Albumin [Mass/Vol] 4.4 g/dL Normal 3.5-5.0 [facility] Comment on above: Performed By: #### L [id number], LAB99, LAB46 ####Lathe Turner: JUDITH MARKHAM ([id number])[facility] ([facility])[address] [place] [address] ALP [Catalytic activity/Vol] 234 U/L High 40-150 [facility] Comment on above: Performed By: #### L AB17, LAB99, LAB46 ####Lathe Turner: JUDITH MARKHAM ([id number])[facility] ([facility])[address] [place] [address] ALT [Catalytic activity/Vol] 197 U/L High <40 [facility] Comment on above: Performed By: #### L AB17, LAB99, LAB46 ####Lathe Turner: JUDITH MARKHAM ([id number])[facility] ([facility])[address] [place] [address] Anion gap [Moles/Vol] 16 mmol/L High 3-13 [facility] Comment on above: Performed By: #### L AB17, LAB99, LAB46 ####Lathe Turner: JUDITH MARKHAM ([phone])[facility] ([facility])[address] [place] [address] [place] AST [Catalytic activity/Vol] 635 U/L High <34 [facility] Comment on above: Performed By: #### L AB17, LAB99, LAB46 ####Lathe Turner: JUDITH MARKHAM ([id number])[facility] ([facility])[address] [place] [address] Bilirubin [Mass/Vol] 1.3 mg/dL High <1.2 [facility] Comment on above: Performed By: #### Iggy AB17, LAB99, LAB46 ####Lathe Turner: JUDITH MARKHAM ([id number])[facility] ([facility])[address] [place] [address] Calcium [Mass/Vol] 8.8 mg/dL Normal 8.4-10.2 [facility] Comment on above: Performed By: #### Iggy AB17, LAB99, LAB46 ####Lathe Turner: JUDITH MARKHAM ([id number])[facility] ([facility])[address] [place] [address] Chloride [Moles/Vol] 103 mmol/L Normal 98-107 [facility] Comment on above: Performed By: #### Iggy AB17, LAB99, LAB46 ####Lathe Turner: JUDITH MARKHAM ([id number])[facility] ([facility])[address] [place] [address] CO2 [Moles/Vol] 22 mmol/L Normal 22-29 [facility] Comment on above: Performed By: #### Iggy BARNES, LAB99, LAB46 ####Lathe Turner: JUDITH MARKHAM ([id number])[facility] ([facility])[address] [place] [address] Creatinine [Mass/Vol] 0.76 mg/dL Normal 0.72-1.25 [facility] Comment on above: Performed By: #### Iggy BARNES, LAB99, LAB46 ####Lathe Turner: JUDITH MARKHAM ([id number])[facility] ([facility])[address] [place] [address] GLOMERULAR FILTRATION RATE ML/MIN/1.73 SQ M.PREDICTED >90.0 Normal >60.0 [facility] Comment on above: Result Comment: Calc ulation based on the Chronic Kidney Disease Epidemiology Collaboration (CKD-EPI) equation refit without adjustment for race Performed By: #### Iggy AB17, LAB99, LAB46 ####Lathe Turner: JUDITH MARKHAM ([id number])[facility] [place] [address] Glucose [Mass/Vol] 151 mg/dL High 74-100 [facility] Comment on above: Performed By: #### L AB17, LAB99, LAB46 ####Lathe Turner: JUDITH MARKHAM ([id number])[facility])[address] [place] [address] Potassium [Moles/Vol] 3.8 mmol/L Normal 3.5-5.1 [facility] Comment on above: Result Comment: [facility] potassium values may be up to 0.5 mmol/L lower than serum values. Performed By: #### L AB17, LAB99, LAB46 ####Lathe Turner: JUDITH MARKHAM ([id number])[facility])[address] [place] [address] Protein [Mass/Vol] 8.1 g/dL Normal 6.4-8.3 [facility] Comment on above: Performed By: #### L AB17, LAB99, LAB46 ####Lathe Turner: JUDITH MARKHAM ([id number])[facility] ([facility])[address] [place] [address] Sodium [Moles/Vol] 141 mmol/L Normal 136-145 [facility] Comment on above: Performed By: #### L AB17, LAB99, LAB46 ####Lathe Turner: JUDITH MARKHAM ([id number])[facility])[address] [place] [address] Urea nitrogen [Mass/Vol] 6 mg/dL Low 8-21 [facility] Comment on above: Performed By: #### L AB17, LAB99, LAB46 ####Lathe Turner: JUDITH MARKHAM ([phone])[facility])[address] [place] [address] CT Abdomen and Pelvis WO con traston 04-16-2024 1. Findings compatible with pancreatitis, mildly increased in the interval. Correlation with appropriate laboratory values and follow-up suggested. 2. Hepatomegaly and hepatic steatosis. Report Dictated on Electronically Signed By: Paul Plata MD Electronically Signed Date/Time: 04/16/2024 6:57 PM EST [facility] EMERGENCY [facility]PARTMENT RADIOLOGY SYSTEM Patient Name: RORO CLAIRE : 1985 Exam Date/Time: 04/16/2024 18:43 Procedure: CT ABDOMEN PELVIS WO IV CONTRAST Ordering Provider: SULTANA EMILIE Reason For Exam: Pancreatitis, acute, severe CT ABDOMEN AND PELVIS WITHOUT CONTRAST CLINICAL INDICATION: Pancreatitis, acute, severe TECHNIQUE: CT scan of the abdomen and pelvis, without IV contrast. Multiplanar reformations. Dose reduction was employed with automated exposure control. COMPARISON: March,. FINDINGS: Abdomen: Solid organ evaluation limited due to lack of IV contrast. Visualized lung bases grossly unremarkable. Morales surge Liver enlarged and shows diffusely decreased attenuation without focal abnormality. Spleen grossly unremarkable. Pancreas prominent/enlarged and demonstrates diffuse soft tissue stranding and infiltration in the peripancreatic fat, mildly increased. No apparent pseudocyst formation. Kidneys grossly unremarkable. Adrenal glands grossly unremarkable. Pelvis: Bowel grossly unremarkable. Appendix within normal limits. No significant, free peritoneal fluid or loculated fluid collection. Abdominal aorta is nonaneurysmal. Axial skeleton grossly intact. [facility] Paul Plata MD - 04/16/2024 Patient Name: RORO VALDIVIA : 1985 Exam Date/Time: 04/16/2024 18:43 Procedure: CT ABDOMEN PELVIS WO IV CONTRAST Ordering Provider: SULTANA EMILIE Reason For Exam: Pancreatitis, acute, severe CT ABDOMEN AND PELVIS WITHOUT CONTRAST CLINICAL INDICATION: Pancreatitis, acute, severe TECHNIQUE: CT scan of the abdomen and pelvis, without IV contrast. Multiplanar reformations. Dose reduction was employed with automated exposure control. COMPARISON: March,. FINDINGS: Abdomen: Solid organ evaluation limited due to lack of IV contrast. Visualized lung bases grossly unremarkable. Morales surge Liver enlarged and shows diffusely decreased attenuation without focal abnormality. Spleen grossly unremarkable. Pancreas prominent/enlarged and demonstrates diffuse soft tissue stranding and infiltration in the peripancreatic fat, mildly increased. No apparent pseudocyst formation. Kidneys grossly unremarkable. Adrenal glands grossly unremarkable. Pelvis: Bowel grossly unremarkable. Appendix within normal limits. No significant, free peritoneal fluid or loculated fluid collection. Abdominal aorta is nonaneurysmal. Axial skeleton grossly intact. IMPRESSION: 1. Findings compatible with pancreatitis, mildly increased in the interval. Correlation with appropriate laboratory values and follow-up suggested. 2. Hepatomegaly and hepatic steatosis. Report Dictated on Electronically Signed By: Paul Plata MD Electronically Signed Date/Time: 04/16/2024 6:57 PM EST [facility] Radiology Study observation (narrative) [facility] CT Abdomen and Pelvis WO con trastOrdered By: Paul Plata on 04-16-2024 [facility] Work Phone: Comprehensive metabolic 1998 panelon 04-16-2024 Albumin [Mass/Vol] 4.4 g/dL 3.5 - 5.0 g/dL [facility] ALP [Catalytic activity/Vol] 234 U/L High 40 - 150 U/L [facility] ALT [Catalytic activity/Vol] 197 U/L High NINF - 40 U/L [facility] Anion gap [Moles/Vol] 16 mmol/L High 3 - 13 mmol/L [facility] AST [Catalytic activity/Vol] 635 U/L [facility]L [facility] Bilirubin [Mass/Vol] 1.3 mg/dL High [facility] 1.[facility] mg/dL [facility] Calcium [Mass/Vol] 8.8 mg/dL 8.4 - 10. 2 mg/dL [facility] Chloride [Moles/Vol] 103 mmol/L 98 - 10 7 mmol/L [facility] CO2 [Moles/Vol] 22 mmol/L 22 - 29 mmol/L [facility] Creatinine [Mass/Vol] 0.76 mg/dL 0.72 - 1.25 mg/dL [facility] GFR/1.73 sq M.predicted (S/P/Bld) [Vol rate/Area] - PINF [facility] Comment on above: Calculation based on the Chronic Kidney Disease Epidemiology Collaboration (CKD-EPI) equation refit without adjustment for race Glucose [Mass/Vol] 151 mg/dL High 74 - 100 mg/dL [facility] Interpretation and review of laboratory results Abnormal [facility] Potassium [Moles/Vol] 3.8 mmol/L 3.5 - 5.1 mmol/L [facility] Comment on above: Plasma potassium víctor ues may be up to 0.5 mmol/L lower than serum values. Protein [Mass/Vol] 8.1 g/dL 6.4 - 8.3 g/dL [facility] Sodium [Moles/Vol] 141 mmol/L 136 - 145 mmol/L [facility] Urea nitrogen [Mass/Vol] 6 mg/dL Low 8 - 21 mg/dL [facility] DRUGS OF ABUSEon 04-16-2024 AMPHETAMINE SCREEN Positive Normal [facility] Comment on above: Performed By: #### L [id number] ####Lathe Turner: JUDITH MARKHAM ([id number])[address] BARBITURATES SCREEN Negative Normal [facility] Comment on above: Performed By: #### L [id number] ####Lathe Turner: JUDITH MARKHAM ([id number])[address] BENZODIAZEPINE SCREEN Negative Normal [facility] Comment on above: Performed By: #### L [id number] ####Lathe Turner: JUDITH MARKHAM ([id number])[address] COCAINE METAB. SCREEN Negative Normal [facility] Comment on above: Performed By: #### L [id number] ####Lathe Turner: JUDITH MARKHAM ([id number])[address] FENTANYL SCREEN, UR QUAL Positive Normal [facility] Comment on above: Result Comment: ORDE R COMMENTS:The expected value for all of the drugs listed above is Negative.The following drugs or drug groups have been screened for by Immunoassay at the following thresholds:Amphetamine class (1000 ng/mL)Barbiturates (200 ng/mL)Benzodiazepines (200 ng/mL)Cocaine (300 ng/mL)Methadone (300 ng/mL)Opiates (300 ng/mL)Oxycodone (100 ng/mL)PCP (25 ng/mL)Fentanyl (1.0 ng/ml)NOTE: These results are for medical treatment only. Analysis performed using non-forensic procedures. POSITIVE results are NOT confirmed by a more specificalternative method unless requested. If confirmation is needed, request confirmation under separate order. Performed By: #### L [id number] ####Lathe Turner: JUDITH MARKHAM ([id number])[facility] ([facility])[address] [place] [address] METHADONE SCREEN Negative Normal [facility] Comment on above: Performed By: #### L [id number] ####Lathe Turner: JUDITH MARKHAM ([id number])[facility] ([facility])[address] [place] [address] OPIATES SCREEN Negative Normal [facility] Comment on above: Performed By: #### L [id number] ####Lathe Turner: JUDITH MARKHAM ([id number])[facility] ([facility])[address] [place] [address] OXYCODONE SCREEN Negative Normal [facility] Comment on above: Performed By: #### L [id number] ####Lathe Turner: JUDITH MARKHAM ([id number])[facility] ([facility])[address] [place] [address] PHENCYCLIDINE SCREEN Negative Normal [facility] Comment on above: Performed By: #### L [id number] ####Lathe Turner: JUDITH MARKHAM ([id number])[facility] ([facility])[address] [place] [address] ED Provider Noteon ED Provider Note Normal [facility] ETHANOLon 04-16-2024 ETHANOL IN SER/PLAS 331 mg/dL Critically high <10 [facility] Comment on above: Result Comment: ORDE R COMMENTS: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NOTE: This result is for medical treatment only. Analysis performed using non-forensic procedures. Performed By: #### L AB17, LAB99, LAB46 ####Lathe Turner: JUDITH MARKHAM ([id number])[facility] ([facility])[address] [place] [address] Ethanol (Bld) [Mass/Vol]Orde red By: Christina Duncan on 04-16-2024 Ethanol [Mass/Vol] 331 mg/dL Critically high NINF - 10 mg/dL [facility] Interpretation and review of laboratory results Abnormal [facility] BAKERY DEMONSTRATOR depression is se en >100 mg/dL. NOTE: This result is for medical treatment only. Analysis performed using non-forensic procedures. [facility] LACTIC ACID WITH REFLEXon Lactate [Moles/Vol] 2.2 mmol/L Normal 0.5-2.2 [facility] Comment on above: Performed By: #### L [id number] ####Lathe Turner: JUDITH MARKHAM ([id number])[facility])[address] [place] [address] Lactate [Moles/Vol] 4.0 mmol/L Critically high 0.5-2.2 [facility] Comment on above: Performed By: #### L [id number] ####Lathe Turner: JUDITH MARKHAM ([id number])[facility] ([facility])[address] [place] [address] LIPASEon 04-16-2024 Lipase [Catalytic activity/Vol] 135 U/L High <55 [facility] Comment on above: Performed By: #### L AB17, LAB99, LAB46 ####Lathe Turner: JUDITH MARKHAM ([phone])[facility])[address] [place] [address] Laboratory - Chemistry and C hemistry - challengeon 04-16-2024 Lactate [Moles/Vol] 2.2 mmol/L 0.5 - 2. 2 mmol/L [facility] Lactate [Moles/Vol] 4 mmol/L Critically high 0.5 - 2.2 mmol/L [facility] Lipase [Catalytic activity/Vol] 135 U/L High NINF - 55 U/L [facility] Laboratory - Drug toxicology on 04-16-2024 Amphetamines Screen method >1000 ng/mL Ql (U) Positive [facility] Barbiturates Screen method >200 ng/mL Ql (U) Negative [facility] Benzodiazepines Ql (U) Negative [facility] Methadone Screen Ql (U) Negative [facility] Opiates Screen Ql (U) Negative [facility] oxyCODONE Ql (U) Negative [facility] Phencyclidine Ql (U) Negative [facility] Laboratory - Microbiology an d Antimicrobial susceptibilityOrdered By: Pooja Huber on 04-16-2024 SARS-CoV-2 (COVID-19) Ag IA.rapid Ql (Resp) Positive Abnormal Negative [facility] Comment on above: This test detects zenaida th viable and non-viable virus. Positive results do not differentiate between SARS-CoV and SARS-CoV-2. If differentiation of specific SARS is needed, additional testing with a NAAT-based method is required. Method: Lateral flow immunoassay. Fact sheets for healthcare providers and patients can be found at the following sites: https://www.MultiZona.com.gov/media/917448/download https://www.MultiZona.com.gov/[employer]/150335/download Lipase [Catalytic activity/V ol]on 04-16-2024 Interpretation and review of laboratory results Abnormal [facility] No Panel Informationon 04-16 Interpretation and review of laboratory results Normal [facility] Interpretation and review of laboratory results Abnormal [facility] COCAINE METAB. SCREEN Negative [facility] FENTANYL SCREEN, UR QUAL Positive [facility] The expected value f or all of the drugs listed above is Negative. The following drugs or drug groups have been screened for by Immunoassay at the following thresholds: Amphetamine class (1000 ng/mL) Barbiturates (200 ng/mL) Benzodiazepines (200 ng/mL) Cocaine (300 ng/mL) Methadone (300 ng/mL) Opiates (300 ng/mL) Oxycodone (100 ng/mL) PCP (25 ng/mL) Fentanyl (1.0 ng/ml) NOTE: These results are for medical treatment only. Analysis performed using non-forensic procedures. POSITIVE results are NOT confirmed by a more specific alternative method unless requested. If confirmation is needed, request confirmation under separate order. [facility] SARS-COV-2 ANTIGENon 025 SARS-COV-2 ANTIGEN Normal [facility] Comment on above: Performed By: #### L [id number] ####Lathe Turner: JUDITH MARKHAM ([id number])[facility] [place] [place] [address] [place] SARS-CoV-2 (COVID-19) Ag IA. rapid Ql (Resp)Ordered By: Pooja Huber on 04-16-2024 Interpretation and review of laboratory results Abnormal [facility] CBC W Auto Differential pane l (Bld)on 04-06-2024 Basophils (Bld) [#/Vol] 0 10*3/uL 0.0 - 0.2 10*3/uL [facility] Basophils/100 WBC (Bld) 0.3 % 0.0 - 2.0 % [facility] Eosinophils (Bld) [#/Vol] 0 10*3/uL 0.0 - 0.5 10*3/uL [facility] Eosinophils/100 WBC (Bld) 0.9 % 0.0 - 6.0 % [facility] Erythrocyte distribution width (RBC) [Ratio] 15 % 11.5 - 15.0 % [facility] Hematocrit (Bld) [Volume fraction] 36 % Low 40.0 - 52.0 % [facility] Hemoglobin (Bld) [Mass/Vol] 11.6 g/dL Low 13.0 - 18.0 g/dL [facility] Immature granulocytes (Bld) [#/Vol] 0 10*3/uL NINF - 0.1 10*3/uL [facility] Immature granulocytes/100 WBC (Bld) 0 % 0.0 - 2.0 % [facility] Interpretation and review of laboratory results Abnormal [facility] Lymphocytes (Bld) [#/Vol] 1.4 10*3/uL 1.0 - 4.3 10*3/uL [facility] Lymphocytes/100 WBC (Bld) 45.1 % High 15.0 - 45.0 % [facility] MCH (RBC) [Entitic mass] 29.6 pg 26.0 - 34.0 pg [facility] MCHC (RBC) [Mass/Vol] 32.2 % 30.5 - 36.0 % [facility] MCV (RBC) [Entitic vol] 91.8 fL 77.0 - 99.0 fL [facility] Monocytes (Bld) [#/Vol] 0.2 10*3/uL 0.0 - 0.9 10*3/uL [facility] Monocytes/100 WBC (Bld) 7.2 % 5.0 - 13.0 % [facility] Neutrophils (Bld) [#/Vol] 1.5 10*3/uL Low 1.8 - 7.5 10*3/uL [facility] Neutrophils/100 WBC (Bld) 46.5 % 38.0 - 82.0 % [facility] Nucleated RBC/100 WBC (Bld) [Ratio] 0 % [facility] Platelet mean volume (Bld) [Entitic vol] 10.6 fL 9.0 - 12.7 fL [facility] Platelets (Bld) [#/Vol] 152 10*3/uL 140 - 440 10*3/uL [facility] RBC (Bld) [#/Vol] 3.92 10*6/uL Low 4.40 - 5.9 0 10*6/uL [facility] WBC (Bld) [#/Vol] 3.2 10*3/uL Low 3.6 - 10.7 10*3/uL [facility] CBC WITH AUTO DIFFERENTIALon 04-06-2024 Basophils (Bld) [#/Vol] 0.0 10*3/uL Normal 0.0-0.2 [facility] Comment on above: Performed By: #### L [id number] ####Lathe Turner: SHENA GUERIN ([id number])[facility] ([facility])[address] [place] [address] Basophils/100 WBC (Bld) 0.3 % Normal 0.0-2.0 [facility] Comment on above: Performed By: #### L [id number] ####Lathe Turner: SHENA GUERIN ([id number])[facility])[address] Eosinophils (Bld) [#/Vol] 0.0 10*3/uL Normal 0.0-0.5 [facility] Comment on above: Performed By: #### L [id number] ####Lathe Turner: SHENA GUERIN ([id number])[facility])[address] Eosinophils/100 WBC (Bld) 0.9 % Normal 0.0-6.0 [facility] Comment on above: Performed By: #### L [id number] ####Lathe Turner: SHENA GUERIN ([id number])[facility] ([facility])[address] [place] [address] Erythrocyte distribution width (RBC) [Ratio] 15.0 % Normal 11.5-15.0 [facility] Comment on above: Performed By: #### L [id number] ####Lathe Turner: SHENA GUERIN ([id number])[facility] ([facility])[address] Hematocrit (Bld) [Volume fraction] 36.0 % Low 40.0-52.0 [facility] Comment on above: Performed By: #### L [id number] ####Lathe Turner: SHENA CHAMPAGNEBETTY ([id number])[facility] ([facility])[address] [place] [address] Hemoglobin (Bld) [Mass/Vol] 11.6 g/dL Low 13.0-18.0 [facility] Comment on above: Performed By: #### L [id number] ####Lathe Turner: SHENA GUERIN ([id number])[facility] ([facility])[address] [place] [address] IMMATURE GRANS % 0.0 % Normal 0.0-2.0 [facility] Comment on above: Performed By: #### L [id number] ####Lathe Turner: SHENA GUERIN ([id number])[facility] ([facility])[address] [place] [address] IMMATURE GRANS ABSOLUTE 0.0 10*3/uL Normal <0.1 [facility] Comment on above: Performed By: #### L [id number] ####Lathe Turner: SHENA GUERIN ([id number])[facility] ([facility])[address] [place] [address] Lymphocytes (Bld) [#/Vol] 1.4 10*3/uL Normal 1.0-4.3 [facility] Comment on above: Performed By: #### L [id number] ####Lathe Turner: SHENA CHAMPAGNEBETTY ([id number])[facility] [place] ([facility])[address] Lymphocytes/100 WBC (Bld) 45.1 % High 15.0-45.0 [facility] Comment on above: Performed By: #### L [id number] ####Lathe Turner: SHENA CHAMPAGNEBETTY ([id number])[facility] CAMPUSKyler [facility] ([facility])[address] MCH (RBC) [Entitic mass] 29.6 pg Normal 26.0-34.0 [facility] Comment on above: Performed By: #### L [id number] ####Lathe Turner: SHENA DEL ROSARIOBeckieBETTY ([id number])[facility] CAMPUSKyler [facility]u ([facility])[address] MCHC 32.2 % Normal 30.5-36.0 [facility] Comment on above: Performed By: #### L [id number] ####Lathe Turner: SHENA CHAMPAGNEBETTY ([id number])[facility]AMPUSKyler [facility] ([facility])[address] MCV (RBC) [Entitic vol] 91.8 fL Normal 77.0-99.0 [facility] Comment on above: Performed By: #### L [id number] ####Lathe Turner: SHENA GUERIN ([id number])[facility]AMPUSKyler [facility] ([facility])[address] Monocytes (Bld) [#/Vol] 0.2 10*3/uL Normal 0.0-0.9 [facility] Comment on above: Performed By: #### L [id number] ####Lathe Turner: SHENA GUERIN ([id number])[facility]AMPUSKyler [facility] ([facility])[address] Monocytes/100 WBC (Bld) 7.2 % Normal 5.0-13.0 [facility] Comment on above: Performed By: #### L [id number] ####Lathe Turner: SHENAPILAR GUERIN ([id number])[facility] CAMPUSA [place] ([facility])[address] NEUTROPHILS ABSOLUTE 1.5 10*3/uL Low 1.8-7.5 [facility] Comment on above: Performed By: #### L [id number] ####Lathe Turner: SHENA DEL ROSARIOHAMIDA ([id number])[facility] CAMPUSA [place] ([facility])[address] Neutrophils/100 WBC (Bld) 46.5 % Normal 38.0-82.0 [facility] Comment on above: Performed By: #### L [id number] ####Lathe Turner: SHENA GUERIN ([id number])[facility] CAMPUSA [place] ([facility])[address] NRBC 0.0 /100 WBCs Normal 0.0-2.0 [facility] Comment on above: Performed By: #### L [id number] ####Lathe Turner: SHENA APOORVA ([id number])[facility] CAMPUSA [place] ([facility])[address] Platelet mean volume (Bld) [Entitic vol] 10.6 fL Normal 9.0-12.7 [facility] Comment on above: Performed By: #### L [id number] ####Lathe Turner: SHENA CHAMPAGNEBETTY ([id number])[facility] CAMPUSA [place] (SBHLAB)[address] Platelets (Bld) [#/Vol] 152 10*3/uL Normal 140-440 [facility] Comment on above: Performed By: #### L [id number] ####Lathe Turner: SHENA APOORVA ([id number])[facility]AMPUSA [place] (SBHLAB)[address] RBC (Bld) [#/Vol] 3.92 10*6/uL Low 4.40-5.90 [facility] Comment on above: Performed By: #### L [id number] ####Lathe Turner: SHENA GUERIN ([id number])[facility] [place] (SBHLAB)[address] WBC (Bld) [#/Vol] 3.2 10*3/uL Low 3.6-10.7 [facility] Comment on above: Performed By: #### L [id number] ####Lathe Turner: SHENA GUERIN ([id number])[facility]AMPUSA [place] (SBHLAB)[address] COMPREHENSIVE METABOLIC PANE Rylan 04-06-2024 Albumin [Mass/Vol] 3.0 g/dL Low 3.5-5.0 [facility] Comment on above: Performed By: #### L [id number] ####Lathe Turner: SHENA GUERIN ([id number])[facility]AMPUSA [place] (SBHLAB)[address] ALP [Catalytic activity/Vol] 127 U/L Normal 40-150 [facility] Comment on above: Performed By: #### L [id number] ####Lathe Turner: SHENA GUERIN ([id number])[facility] [place] (SBHLAB)[address] ALT [Catalytic activity/Vol] 72 U/L High <40 [facility] Comment on above: Performed By: #### L [id number] ####Lathe Turner: SHENA GUERIN ([id number])[facility] [place] (SBHLAB)[address] Anion gap [Moles/Vol] 6 mmol/L Normal 3-13 [facility] Comment on above: Performed By: #### L [id number] ####Lathe Turner: SHENA GUERIN ([id number])[facility]AMPUSA [place] (SBHLAB)[address] AST [Catalytic activity/Vol] 102 U/L High <34 [facility] Comment on above: Performed By: #### L AB17 ####Lathe Turner: SHENA GUERIN ([id number])[facility] [place] (SBHLAB)[address] Bilirubin [Mass/Vol] 1.5 mg/dL High <1.2 [facility] Comment on above: Performed By: #### L AB17 ####Lathe Turner: SHENA GUERIN ([id number])[facility] [place] (SBHLAB)[address] Calcium [Mass/Vol] 8.2 mg/dL Low 8.4-10.2 [facility] Comment on above: Performed By: #### L AB17 ####Lathe Turner: SHENA GUERIN ([id number])[facility] [place] (SBHLAB)[address] Chloride [Moles/Vol] 111 mmol/L High 98-107 [facility] Comment on above: Performed By: #### L AB17 ####Lathe Turner: SHENA GUERIN ([id number])[facility]AMP[facility] [place] (SBHLAB)[address] CO2 [Moles/Vol] 21 mmol/L Low 22-29 [facility] Comment on above: Performed By: #### L AB17 ####Lathe Turner: SHENA GUERIN ([id number])[facility]AMP[facility] [place] (SBHLAB)[address] Creatinine [Mass/Vol] 0.57 mg/dL Low 0.72-1.25 [facility] Comment on above: Performed By: #### L AB17 ####Lathe Turner: SHENA GUERIN ([id number])[facility]AMPUSA [place] (SBHLAB)[address] GLOMERULAR FILTRATION RATE ML/MIN/1.73 SQ M.PREDICTED >90.0 Normal >60.0 [facility] Comment on above: Result Comment: Calc ulation based on the Chronic Kidney Disease Epidemiology Collaboration (CKD-EPI) equation refit without adjustment for race Performed By: #### L AB17 ####Lathe Turner: SHENA GUERIN ([id number])[facility] S[facility] CAMPUSKyler NEUMANNTu (SBHLAB)[address] Glucose [Mass/Vol] 102 mg/dL High 74-100 [facility] Comment on above: Performed By: #### L AB17 ####Lathe Turner: SHENA GUERIN ([id number])[facility] CAMPUSKyler [facility] (SBHLAB)[address] Potassium [Moles/Vol] 4.0 mmol/L Normal 3.5-5.1 [facility] Comment on above: Result Comment: [facility] potassium values may be up to 0.5 mmol/L lower than serum values. Performed By: #### L AB17 ####Lathe Turner: SHENA GUERIN ([id number])[facility] S[facility] CAMPUSKyler NEUMANN (SBHLAB)[address] Protein [Mass/Vol] 5.7 g/dL Low 6.4-8.3 [facility] Comment on above: Performed By: #### L AB17 ####Lathe Turner: SHENA GUERIN ([id number])[facility] CAMPUSKyler CLAFLIN (SBHLAB)[address] Sodium [Moles/Vol] 138 mmol/L Normal 136-145 [facility] Comment on above: Performed By: #### L AB17 ####Lathe Turner: SHENA GUERIN ([id number])[facility] (SBHLAB)[address] Urea nitrogen [Mass/Vol] mg/dL Low 8-21 [facility] Comment on above: Performed By: #### L AB17 ####Lathe Turner: SHENA GUERIN ([id number])[facility] (SBHLAB)[address] Comprehensive metabolic 1998 panelon 04-06-2024 Albumin [Mass/Vol] 3 g/dL Low 3.5 - 5.0 g/dL [facility] ALP [Catalytic activity/Vol] 127 U/L 40 - 150 U/L [facility] ALT [Catalytic activity/Vol] 72 U/L High NINF - 40 U/L [facility] Anion gap [Moles/Vol] 6 mmol/L 3 - 13 mmol/L [facility] AST [Catalytic activity/Vol] 102 U/L High NINF - 34 U/L [facility] Bilirubin [Mass/Vol] 1.5 mg/dL High NINF - 1.2 mg/dL [facility] Calcium [Mass/Vol] 8.2 mg/dL Low 8.4 - 10. 2 mg/dL [facility] Chloride [Moles/Vol] 111 mmol/L High 98 - 10 7 mmol/L [facility] CO2 [Moles/Vol] 21 mmol/L Low 22 - 29 mmol/L [facility] Creatinine [Mass/Vol] 0.57 mg/dL Low 0.72 - 1.25 mg/dL [facility] GFR/1.73 sq M.predicted (S/P/Bld) [Vol rate/Area] - PINF [facility] Comment on above: Calculation based on the Chronic Kidney Disease Epidemiology Collaboration (CKD-EPI) equation refit without adjustment for race Glucose [Mass/Vol] 102 mg/dL High 74 - 100 mg/dL [facility] Interpretation and review of laboratory results Abnormal [facility] Potassium [Moles/Vol] 4 mmol/L 3.5 - 5.1 mmol/L [facility] Comment on above: Plasma potassium víctor ues may be up to 0.5 mmol/L lower than serum values. Protein [Mass/Vol] 5.7 g/dL Low 6.4 - 8.3 g/dL [facility] Sodium [Moles/Vol] 138 mmol/L 136 - 145 mmol/L [facility] Urea nitrogen [Mass/Vol] mg/dL Low 8 - 21 mg/dL [facility] Progress Noteon 04-06-2024 Progress Note Normal [facility] Progress Note Nutrition rescreen complete. Pt assigned a level one for nutrition care. Normal [facility] CBC W Auto Differential pane l (Bld)Ordered By: Wanda Frias on 04-05-2024 Basophils (Bld) [#/Vol] 0 10*3/uL 0.0 - 0.2 10*3/uL [facility] Basophils/100 WBC (Bld) 0.6 % 0.0 - 2.0 % [facility] Eosinophils (Bld) [#/Vol] 0 10*3/uL 0.0 - 0.5 10*3/uL [facility] Eosinophils/100 WBC (Bld) 0.6 % 0.0 - 6.0 % [facility] Erythrocyte distribution width (RBC) [Ratio] 15.1 % High 11.5 - 15.0 % [facility] Hematocrit (Bld) [Volume fraction] 40.1 % 40.0 - 52.0 % [facility] Hemoglobin (Bld) [Mass/Vol] 13 g/dL 13.0 - 18.0 g/dL [facility] Immature granulocytes (Bld) [#/Vol] 0 10*3/uL NINF - 0.1 10*3/uL [facility] Immature granulocytes/100 WBC (Bld) 0 % 0.0 - 2.0 % [facility] Interpretation and review of laboratory results Abnormal [facility] Lymphocytes (Bld) [#/Vol] 1.6 10*3/uL 1.0 - 4.3 10*3/uL [facility] Lymphocytes/100 WBC (Bld) 46.4 % High 15.0 - 45.0 % [facility] MCH (RBC) [Entitic mass] 29.3 pg 26.0 - 34.0 pg [facility] MCHC (RBC) [Mass/Vol] 32.4 % 30.5 - 36.0 % [facility] MCV (RBC) [Entitic vol] 90.3 fL 77.0 - 99.0 fL [facility] Monocytes (Bld) [#/Vol] 0.3 10*3/uL 0.0 - 0.9 10*3/uL [facility] Monocytes/100 WBC (Bld) 9.2 % 5.0 - 13.0 % [facility] Neutrophils (Bld) [#/Vol] 1.5 10*3/uL Low 1.8 - 7.5 10*3/uL [facility] Neutrophils/100 WBC (Bld) 43.2 % 38.0 - 82.0 % [facility] Nucleated RBC/100 WBC (Bld) [Ratio] 0 % [facility] Platelet mean volume (Bld) [Entitic vol] 10 fL 9.0 - 12.7 fL [facility] Platelets (Bld) [#/Vol] 153 10*3/uL 140 - 440 10*3/uL [facility] RBC (Bld) [#/Vol] 4.44 10*6/uL 4.40 - 5.9 0 10*6/uL [facility] WBC (Bld) [#/Vol] 3.5 10*3/uL Low 3.6 - 10.7 10*3/uL [facility] CBC WITH AUTO DIFFERENTIALon 04-05-2024 Basophils (Bld) [#/Vol] 0.0 10*3/uL Normal 0.0-0.2 [facility] Comment on above: Performed By: #### L [id number] ####Lathe Turner: SHENA GUERIN ([id number])[facility]AMPUSA [place] (SBHLAB)[address] Basophils/100 WBC (Bld) 0.6 % Normal 0.0-2.0 [facility] Comment on above: Performed By: #### L [id number] ####Lathe Turner: SHENA GUERIN ([id number])[facility]AMPUSA [place] (SBHLAB)[address] [place] [address] [place] Eosinophils (Bld) [#/Vol] 0.0 10*3/uL Normal 0.0-0.5 [facility] Comment on above: Performed By: #### L [id number] ####Lathe Turner: SHENA GUERIN ([id number])[facility]AMPUSA [place] (SBHLAB)[address] [place] [address] [place] Eosinophils/100 WBC (Bld) 0.6 % Normal 0.0-6.0 [facility] Comment on above: Performed By: #### L [id number] ####Lathe Turner: SHENA GUERIN ([id number])[facility]AMPUSA [place] (SBHLAB)[address] [place] [address] [place] Erythrocyte distribution width (RBC) [Ratio] 15.1 % High 11.5-15.0 [facility] Comment on above: Performed By: #### L [id number] ####Lathe Turner: SHENA GUERIN ([id number])[facility]AMPUSA [place] (SBHLAB)[address] Hematocrit (Bld) [Volume fraction] 40.1 % Normal 40.0-52.0 [facility] Comment on above: Performed By: #### L [id number] ####Lathe Turner: SHENA CHAMPAGNEBETTY ([id number])[facility]AMPUSA [place] (SBHLAB)[address] Hemoglobin (Bld) [Mass/Vol] 13.0 g/dL Normal 13.0-18.0 [facility] Comment on above: Performed By: #### L [id number] ####Lathe Turner: SHENA GUERIN ([id number])[facility] CAMPUSA [facility] (SBHLAB)[address] IMMATURE GRANS % 0.0 % Normal 0.0-2.0 [facility] Comment on above: Performed By: #### L [id number] ####Lathe Turner: SHE[facility] GU[facility]IN [facility][id number])[facility] ([facility])[address] IMMATURE GRANS ABSOLUTE 0.0 10*3/uL Normal <0.1 [facility] Comment on above: Performed By: #### L [id number] ####Lathe Turner: SHENA GUERIN ([id number])[facility] CAMPUSA [facility] (SBHLAB)[address] Lymphocytes (Bld) [#/Vol] 1.6 10*3/uL Normal 1.0-4.3 [facility] Comment on above: Performed By: #### L [id number] ####Lathe Turner: SHENA GUERIN ([id number])[facility] CAMPUSA [facility] (SBHLAB)[address] [place] [address] [place] Lymphocytes/100 WBC (Bld) 46.4 % High 15.0-45.0 [facility] Comment on above: Performed By: #### L [id number] ####Lathe Turner: SHENA GUERIN ([id number])[facility] (SBHLAB)[address] MCH (RBC) [Entitic mass] 29.3 pg Normal 26.0-34.0 [facility] Comment on above: Performed By: #### L [id number] ####Lathe Turner: SHENA CHAMPAGNEBETTY ([id number])[facility] [place] (SBHLAB)[address] MCHC 32.4 % Normal 30.5-36.0 [facility] Comment on above: Performed By: #### L [id number] ####Lathe Turner: SHENA CHAMPAGNEBETTY ([id number])[facility] [place] (SBHLAB)[address] MCV (RBC) [Entitic vol] 90.3 fL Normal 77.0-99.0 [facility] Comment on above: Performed By: #### L [id number] ####Lathe Turner: SHENA GUERIN ([id number])[facility] [place] (SBHLAB)[address] Monocytes (Bld) [#/Vol] 0.3 10*3/uL Normal 0.0-0.9 [facility] Comment on above: Performed By: #### L [id number] ####Lathe Turner: SHENA GUERIN ([id number])[facility] [place] (SBHLAB)[address] Monocytes/100 WBC (Bld) 9.2 % Normal 5.0-13.0 [facility] Comment on above: Performed By: #### L [id number] ####Lathe Turner: SHENA GUERIN ([id number])[facility] [place] (SBHLAB)[address] NEUTROPHILS ABSOLUTE 1.5 10*3/uL Low 1.8-7.5 [facility] Comment on above: Performed By: #### L [id number] ####Lathe Turner: SHENA GUERIN ([id number])[facility]AMPUSA [place] (SBHLAB)[address] Neutrophils/100 WBC (Bld) 43.2 % Normal 38.0-82.0 [facility] Comment on above: Performed By: #### L [id number] ####Lathe Turner: SHENA GUERIN ([id number])[facility] [place] (SBHLAB)[address] NRBC 0.0 /100 WBCs Normal 0.0-2.0 [facility] Comment on above: Performed By: #### L [id number] ####Lathe Turner: SHENA GUERIN ([id number])[facility] CAMPUSA [facility]N (SBHLAB)[address] Platelet mean volume (Bld) [Entitic vol] 10.0 fL Normal 9.0-12.7 [facility] Comment on above: Performed By: #### L [id number] ####Lathe Turner: SHENA GUERIN ([id number])[facility]AMPUSA [place] (SBHLAB)[address] Platelets (Bld) [#/Vol] 153 10*3/uL Normal 140-440 [facility] Comment on above: Performed By: #### L [id number] ####Lathe Turner: SHENA GUERIN ([id number])[facility]AMPUSA [place] (SBHLAB)[address] RBC (Bld) [#/Vol] 4.44 10*6/uL Normal 4.40-5.90 [facility] Comment on above: Performed By: #### L [id number] ####Lathe Turner: SHENA GUERIN ([id number])[facility]AMPUSA [place] (SBHLAB)[address] [place] [address] [place] WBC (Bld) [#/Vol] 3.5 10*3/uL Low 3.6-10.7 [facility] Comment on above: Performed By: #### L [id number] ####Lathe Turner: SHENA GUERIN ([id number])[facility]AMPUSA [place] (SBHLAB)[address] COMPREHENSIVE METABOLIC PANE Rylan 04-05-2024 Albumin [Mass/Vol] 3.5 g/dL Normal 3.5-5.0 [facility] Comment on above: Performed By: #### L [id number] ####Lathe Turner: SHENA GUERIN ([id number])[facility] [place] (SBHLAB)[address] ALP [Catalytic activity/Vol] 140 U/L Normal 40-150 [facility] Comment on above: Performed By: #### L AB17 ####Lathe Turner: SHENA GUERIN ([id number])[facility]AMPUSA [place] (SBHLAB)[address] ALT [Catalytic activity/Vol] 104 U/L High <40 [facility] Comment on above: Performed By: #### L AB17 ####Lathe Turner: SHENA GUERIN ([id number])[facility]AMPUSA [place] (SBHLAB)[address] Anion gap [Moles/Vol] 9 mmol/L Normal 3-13 [facility] Comment on above: Performed By: #### L AB17 ####Lathe Turner: SHENA GUERIN ([id number])[facility]AMPUSA [place] (SBHLAB)[address] AST [Catalytic activity/Vol] 149 U/L High <34 [facility] Comment on above: Performed By: #### L AB17 ####Lathe Turner: SHENA GUERIN ([id number])[facility]AMPUSA [place] (SBHLAB)[address] [place] [address] [place] Bilirubin [Mass/Vol] 1.6 mg/dL High <1.2 [facility] Comment on above: Performed By: #### L AB17 ####Lathe Turner: SHENA GUERIN ([id number])[facility]AMPUSA [place] (SBHLAB)[address] Calcium [Mass/Vol] 8.5 mg/dL Normal 8.4-10.2 [facility] Comment on above: Performed By: #### L AB17 ####Lathe Turner: SHENA GUERIN ([id number])[facility] (SBHLAB)[address] Chloride [Moles/Vol] 104 mmol/L Normal 98-107 [facility] Comment on above: Performed By: #### L AB17 ####Lathe Turner: SHENA GUERIN ([id number])[facility]AMPUSA [place] (SBHLAB)[address] CO2 [Moles/Vol] 21 mmol/L Low 22-29 [facility] Comment on above: Performed By: #### L AB17 ####Lathe Turner: SHENA GUERIN ([id number])[facility] S[facility] CAMPUSKyler [place] (SBHLAB)[address] Creatinine [Mass/Vol] 0.66 mg/dL Low 0.72-1.25 [facility] Comment on above: Performed By: #### L AB17 ####Lathe Turner: SHENA GUERIN ([id number])[facility] CAMPUSA [facility]N (SBHLAB)[address] GLOMERULAR FILTRATION RATE ML/MIN/1.73 SQ M.PREDICTED >90.0 Normal >60.0 [facility] Comment on above: Result Comment: Calc ulation based on the Chronic Kidney Disease Epidemiology Collaboration (CKD-EPI) equation refit without adjustment for race Performed By: #### L [id number] ####Lathe Turner: SHENA GUERIN ([id number])[facility] CAMPUSKyler [place] (SBHLAB)[address] [place] [address] [place] Glucose [Mass/Vol] 102 mg/dL High 74-100 [facility] Comment on above: Performed By: #### L AB17 ####Lathe Turner: SHENA GUERIN ([id number])[facility] CAMPUSA [place] (SBHLAB)[address] [place] [address] [place] Potassium [Moles/Vol] 4.1 mmol/L Normal 3.5-5.1 [facility] Comment on above: Result Comment: [facility] potassium values may be up to 0.5 mmol/L lower than serum values. Performed By: #### L AB17 ####Lathe Turner: SHENA GUERIN ([id number])[facility] CAMPUSKyler ENGELCIBOL[facility]ITALN (SBHLAB)[address] Protein [Mass/Vol] 6.4 g/dL Normal 6.4-8.3 [facility] Comment on above: Performed By: #### L AB17 ####Lathe Turner: SHENA GUERIN ([id number])[facility] CAMPUSA [place] (SBHLAB)[address] Sodium [Moles/Vol] 134 mmol/L Low 136-145 [facility] Comment on above: Performed By: #### L AB17 ####Lathe Turner: SHENA GUERIN ([id number])[facility] CAMPUSA [facility] (SBHLAB)[address] Urea nitrogen [Mass/Vol] 3 mg/dL Low 8-21 [facility] Comment on above: Performed By: #### L AB17 ####Lathe Turner: SHE[facility] GUERIN ([id number])[facility] ([facility] Comprehensive metabolic 1998 panelon 04-05-2024 Albumin [Mass/Vol] 3.5 g/dL 3.5 - 5.0 g/dL [facility] ALP [Catalytic activity/Vol] 140 U/L 40 - 150 U/L [facility] ALT [Catalytic activity/Vol] 104 U/L High NINF - 40 U/L [facility] Anion gap [Moles/Vol] 9 mmol/L 3 - 13 mmol/L [facility] AST [Catalytic activity/Vol] 149 U/L High NINF - 34 U/L [facility] Bilirubin [Mass/Vol] 1.6 mg/dL High NINF - 1.2 mg/dL [facility] Calcium [Mass/Vol] 8.5 mg/dL 8.4 - 10. 2 mg/dL [facility] Chloride [Moles/Vol] 104 mmol/L 98 - 10 7 mmol/L [facility] CO2 [Moles/Vol] 21 mmol/L Low 22 - 29 mmol/L [facility] Creatinine [Mass/Vol] 0.66 mg/dL Low 0.72 - 1.25 mg/dL [facility] GFR/1.73 sq M.predicted (S/P/Bld) [Vol rate/Area] - PINF [facility] Comment on above: Calculation based on the Chronic Kidney Disease Epidemiology Collaboration (CKD-EPI) equation refit without adjustment for race Glucose [Mass/Vol] 102 mg/dL High 74 - 100 mg/dL [facility] Interpretation and review of laboratory results Abnormal [facility] Potassium [Moles/Vol] 4.1 mmol/L 3.5 - 5.1 mmol/L [facility] Comment on above: Plasma potassium víctor ues may be up to 0.5 mmol/L lower than serum values. Protein [Mass/Vol] 6.4 g/dL 6.4 - 8.3 g/dL [facility] Sodium [Moles/Vol] 134 mmol/L Low 136 - 145 mmol/L [facility] Urea nitrogen [Mass/Vol] 3 mg/dL Low 8 - 21 mg/dL [facility] Progress Noteon 04-05-2024 Progress Note Normal [facility] Progress Note Normal [facility] CBC W Auto Differential pane l (Bld)on 04-04-2024 Basophils (Bld) [#/Vol] 0.1 10*3/uL 0.0 - 0.2 10*3/uL [facility] Basophils/100 WBC (Bld) 0.8 % 0.0 - 2.0 % [facility] Eosinophils (Bld) [#/Vol] 0 10*3/uL 0.0 - 0.5 10*3/uL [facility] Eosinophils/100 WBC (Bld) 0.5 % 0.0 - 6.0 % [facility] Erythrocyte distribution width (RBC) [Ratio] 15.3 % High 11.5 - 15.0 % [facility] Hematocrit (Bld) [Volume fraction] 44.7 % 40.0 - 52.0 % [facility] Hemoglobin (Bld) [Mass/Vol] 15 g/dL 13.0 - 18.0 g/dL [facility] Immature granulocytes (Bld) [#/Vol] 0 10*3/uL NINF - 0.1 10*3/uL [facility] Immature granulocytes/100 WBC (Bld) 0.2 % 0.0 - 2.0 % [facility] Interpretation and review of laboratory results Abnormal [facility] Lymphocytes (Bld) [#/Vol] 3.3 10*3/uL 1.0 - 4.3 10*3/uL [facility] Lymphocytes/100 WBC (Bld) 56.1 % High 15.0 - 45.0 % [facility] MCH (RBC) [Entitic mass] 29.4 pg 26.0 - 34.0 pg [facility] MCHC (RBC) [Mass/Vol] 33.6 % 30.5 - 36.0 % [facility] MCV (RBC) [Entitic vol] 87.5 fL 77.0 - 99.0 fL [facility] Monocytes (Bld) [#/Vol] 0.5 10*3/uL 0.0 - 0.9 10*3/uL [facility] Monocytes/100 WBC (Bld) 8.2 % 5.0 - 13.0 % [facility] Neutrophils (Bld) [#/Vol] 2 10*3/uL 1.8 - 7.5 10*3/uL [facility] Neutrophils/100 WBC (Bld) 34.2 % Low 38.0 - 82.0 % [facility] Nucleated RBC/100 WBC (Bld) [Ratio] 0 % [facility] Platelet mean volume (Bld) [Entitic vol] 9.8 fL 9.0 - 12.7 fL [facility] Platelets (Bld) [#/Vol] 260 10*3/uL 140 - 440 10*3/uL [facility] RBC (Bld) [#/Vol] 5.11 10*6/uL 4.40 - 5.9 0 10*6/uL [facility] WBC (Bld) [#/Vol] 5.9 10*3/uL 3.6 - 10.7 10*3/uL [facility] CBC WITH AUTO DIFFERENTIALon 04-04-2024 Basophils (Bld) [#/Vol] 0.1 10*3/uL Normal 0.0-0.2 [facility] Comment on above: Performed By: #### L [id number] ####Lathe Turner: SHENA GUERIN ([id number])[facility] [place] (SBHLAB)[address] Basophils/100 WBC (Bld) 0.8 % Normal 0.0-2.0 [facility] Comment on above: Performed By: #### L [id number] ####Lathe Turner: SHENA CHAMPAGNEBETTY ([id number])[facility] [place] (SBHLAB)[address] Eosinophils (Bld) [#/Vol] 0.0 10*3/uL Normal 0.0-0.5 [facility] Comment on above: Performed By: #### L [id number] ####Lathe Turner: SHENA CHAMPAGNEBETTY ([id number])[facility] (SBHLAB)[address] Eosinophils/100 WBC (Bld) 0.5 % Normal 0.0-6.0 [facility] Comment on above: Performed By: #### L [id number] ####Lathe Turner: SHENA CHAMPAGNEBETTY ([id number])[facility] [place] (SB[facility])[address] Erythrocyte distribution width (RBC) [Ratio] 15.3 % High 11.5-15.0 [facility] Comment on above: Performed By: #### L [id number] ####Lathe Turner: SHENA GUERIN ([id number])[facility] [place] (SB[facility])[address] [place] [address] Hematocrit (Bld) [Volume fraction] 44.7 % Normal 40.0-52.0 [facility] Comment on above: Performed By: #### L [id number] ####Lathe Turner: SHENA GUERIN ([id number])[facility] [place] (SB[facility])[address] Hemoglobin (Bld) [Mass/Vol] 15.0 g/dL Normal 13.0-18.0 [facility] Comment on above: Performed By: #### L [id number] ####Lathe Turner: SHENA GUERIN ([id number])[facility] [place] (SB[facility]AB)[address] IMMATURE GRANS % 0.2 % Normal 0.0-2.0 [facility] Comment on above: Performed By: #### L [id number] ####Lathe Turner: SHENA GUERIN ([id number])[facility]AMPUSA [facility] (SB[facility])[address] IMMATURE GRANS ABSOLUTE 0.0 10*3/uL Normal <0.1 [facility] Comment on above: Performed By: #### L [id number] ####Lathe Turner: SHENA GUERIN ([id number])[facility]AMPUSA [facility] (SB[facility])[address] Lymphocytes (Bld) [#/Vol] 3.3 10*3/uL Normal 1.0-4.3 [facility] Comment on above: Performed By: #### L [id number] ####Lathe Turner: SHENA GUERIN ([id number])[facility]AMPUSA [facility] ([facility])[address] Lymphocytes/100 WBC (Bld) 56.1 % High 15.0-45.0 [facility] Comment on above: Performed By: #### L [id number] ####Lathe Turner: SHENA GUERIN ([id number])[facility]AMPUSA [facility] (SBHLAB)[address] MCH (RBC) [Entitic mass] 29.4 pg Normal 26.0-34.0 [facility] Comment on above: Performed By: #### L [id number] ####Lathe Turner: SHENA GUERIN ([id number])[facility]USA [facility] (SBHLAB)[address] MCHC 33.6 % Normal 30.5-36.0 [facility] Comment on above: Performed By: #### L [id number] ####Lathe Turner: SHENA GUERIN ([id number])[facility] (SBHLAB)[address] MCV (RBC) [Entitic vol] 87.5 fL Normal 77.0-99.0 [facility] Comment on above: Performed By: #### L [id number] ####Lathe Turner: SHENA GUERIN ([id number])[facility] (SBHLAB)[address] Monocytes (Bld) [#/Vol] 0.5 10*3/uL Normal 0.0-0.9 [facility] Comment on above: Performed By: #### L [id number] ####Lathe Turner: SHENA GUERIN ([id number])[facility]AMPUSA [place] (SBHLAB)[address] Monocytes/100 WBC (Bld) 8.2 % Normal 5.0-13.0 [facility] Comment on above: Performed By: #### L [id number] ####Lathe Turner: SHENA GUERIN ([id number])[facility] (SBHLAB)[address] NEUTROPHILS ABSOLUTE 2.0 10*3/uL Normal 1.8-7.5 [facility] Comment on above: Performed By: #### L [id number] ####Lathe Turner: SHENA GUERIN ([id number])[facility] [place] (SBHLAB)[address] Neutrophils/100 WBC (Bld) 34.2 % Low 38.0-82.0 [facility] Comment on above: Performed By: #### L [id number] ####Lathe Turner: SHENA GUERIN ([id number])[facility] (SBHLAB)[address] [place] [address] [place] NRBC 0.0 /100 WBCs Normal 0.0-2.0 [facility] Comment on above: Performed By: #### L [id number] ####Lathe Turner: SHENA GUERIN ([id number])[facility] (SBHLAB)[address] Platelet mean volume (Bld) [Entitic vol] 9.8 fL Normal 9.0-12.7 [facility] Comment on above: Performed By: #### L [id number] ####Lathe Turner: SHENA GUERIN ([id number])[facility]USA [place] (SBHLAB)[address] Platelets (Bld) [#/Vol] 260 10*3/uL Normal 140-440 [facility] Comment on above: Performed By: #### L [id number] ####Lathe Turner: SHENA GUERIN ([id number])[facility]AMPUSA [place] (SBHLAB)[address] RBC (Bld) [#/Vol] 5.11 10*6/uL Normal 4.40-5.90 [facility] Comment on above: Performed By: #### L [id number] ####Lathe Turner: SHENA GUERIN ([id number])[facility]AMPUSA [place] (SBHLAB)[address] WBC (Bld) [#/Vol] 5.9 10*3/uL Normal 3.6-10.7 [facility] Comment on above: Performed By: #### L [id number] ####Lathe Turner: SHENA GUERIN ([id number])[facility]AMPUSA [facility] (SBHLAB)[address] COMPLETE URINALYSISon 2024 BILIRUBIN, TOTAL PRESENCE IN URINE Negative Normal Negative [facility] Comment on above: Performed By: #### L [id number] ####Lathe Turner: SHENA GUERIN ([id number])[facility] [place] (SBHLAB)[address] Clarity (U) Clear Normal Clear [facility] Comment on above: Performed By: #### L [id number] ####Lathe Turner: SHENA GUERIN ([id number])[facility]AMPUSA [place] (SBHLAB)[address] Color (U) Light Yellow Normal Lt. Yellow [facility] Comment on above: Performed By: #### L [id number] ####Lathe Turner: SHENA GUERIN ([id number])[facility])[address] GLUCOSE (MG/DL) IN URINE Normal Normal Normal (<70) [facility] Comment on above: Performed By: #### L [id number] ####Lathe Turner: SHENA GUERIN ([id number])[facility])[address] HEMOGLOBIN PRESENCE IN URINE Negative Normal Negative [facility] Comment on above: Performed By: #### L [id number] ####Lathe Turner: SHENA GUERIN ([id number])[facility] ([facility])[address] [place] [address] Ketones Ql (U) Negative Normal Negative [facility] Comment on above: Performed By: #### L [id number] ####Lathe Turner: SHENA GUERIN ([id number])[facility] ([facility])[address] [place] [address] LEUKOCYTE ESTERASE PRESENCE IN URINE BY TEST STRIP Negative Normal Negative [facility] Comment on above: Performed By: #### L [id number] ####Lathe Turner: SHENA GUERIN ([id number])[facility])[address] [place] [address] NITRITE PRESENCE IN URINE Negative Normal Negative [facility] Comment on above: Performed By: #### L [id number] ####Lathe Turner: SHENA GUERIN ([id number])[facility])[address] [place] [address] pH (U) 6.0 [pH] Normal 5.0-8.0 [facility] Comment on above: Performed By: #### L [id number] ####Lathe Turner: SHENA GUERIN ([id number])[facility]AMPUSA [facility] (SBHLAB)[address] Protein (U) [Mass/Vol] Negative Normal Negative [facility] Comment on above: Performed By: #### L [id number] ####Lathe Turner: SHENA CHAMPAGNEBETTY ([id number])[facility] CAMPUSKyler [facility] (SBHLAB)[address] Specific gravity (U) [Rel density] 1.008 Normal 1.005-1.030 [facility] Comment on above: Performed By: #### L [id number] ####Lathe Turner: SHENA GUERIN ([id number])[facility]AMPUSA [facility] (SB[facility])[address] UROBILINOGEN (MG/DL) IN URINE Normal Normal Normal (0-1) [facility] Comment on above: Performed By: #### L [id number] ####Lathe Turner: SHENA GUERIN ([id number])[facility]AMPUSKyler [facility] (SB[facility]AB)[address] COMPREHENSIVE METABOLIC PANE Rylan 04-04-2024 Albumin [Mass/Vol] 4.3 g/dL Normal 3.5-5.0 [facility] Comment on above: Performed By: #### L AB17, LAB46, LAB99 ####Lathe Turner: SHENA GUERIN ([id number])[facility] CAMPUSKyler [facility] (SBHLAB)[address] [place] [address] [place] ALP [Catalytic activity/Vol] 183 U/L High 40-150 [facility] Comment on above: Performed By: #### L AB17, LAB46, LAB99 ####Lathe Turner: SHENA GUERIN ([id number])[facility]AMPUSA [place] (SBHLAB)[address] ALT [Catalytic activity/Vol] 166 U/L High <40 [facility] Comment on above: Performed By: #### L AB17, LAB46, LAB99 ####Lathe Turner: SHENA GUERIN ([id number])[facility]AMPUSA [facility] (SBHLAB)[address] Anion gap [Moles/Vol] 14 mmol/L High 3-13 [facility] Comment on above: Performed By: #### L AB17, LAB46, LAB99 ####Lathe Turner: SHENA GUERIN ([id number])[facility] CAMPUSKyler [facility] (SB[facility])[address] AST [Catalytic activity/Vol] 258 U/L High <34 [facility] Comment on above: Performed By: #### L AB17, LAB46, LAB99 ####Lathe Turner: SHENA GUERIN ([id number])[facility]AMPUSA [facility] (SBHLAB)[address] Bilirubin [Mass/Vol] 1.0 mg/dL Normal <1.2 [facility] Comment on above: Performed By: #### L AB17, LAB46, LAB99 ####Lathe Turner: SHENA GUERIN ([id number])[facility]AMPUSKyler [facility] (SB[facility])[address] Calcium [Mass/Vol] 9.3 mg/dL Normal 8.4-10.2 [facility] Comment on above: Performed By: #### L AB17, LAB46, LAB99 ####Lathe Turner: SHE[facility] GUERIN ([id number])[facility] [place] [address] [place] Chloride [Moles/Vol] 102 mmol/L Normal 98-107 [facility] Comment on above: Performed By: #### L AB17, LAB46, LAB99 ####Lathe Turner: SHENA GUERIN ([id number])[facility]AMPUSA [facility] (SBHLAB)[address] [place] [address] [place] CO2 [Moles/Vol] 21 mmol/L Low 22-29 [facility] Comment on above: Performed By: #### L AB17, LAB46, LAB99 ####Lathe Turner: SHENA GUERIN ([id number])[facility]AMPUSA [facility] (SBHLAB)[address] Creatinine [Mass/Vol] 0.72 mg/dL Normal 0.72-1.25 [facility] Comment on above: Performed By: #### L AB17, LAB46, LAB99 ####Lathe Turner: SHENA GUERIN ([id number])[facility] CAMPUSKyler [place] (SBHLAB)[address] GLOMERULAR FILTRATION RATE ML/MIN/1.73 SQ M.PREDICTED >90.0 Normal >60.0 [facility] Comment on above: Result Comment: Calc ulation based on the Chronic Kidney Disease Epidemiology Collaboration (CKD-EPI) equation refit without adjustment for race Performed By: #### L AB17, LAB46, LAB99 ####Lathe Turner: SHENA GUERIN ([id number])[facility] (SBHLAB)[address] Glucose [Mass/Vol] 150 mg/dL High 74-100 [facility] Comment on above: Performed By: #### L AB17, LAB46, LAB99 ####Lathe Turner: SHENA GUERIN ([id number])[facility] (SBHLAB)[address] Potassium [Moles/Vol] 3.5 mmol/L Normal 3.5-5.1 [facility] Comment on above: Result Comment: [facility] potassium values may be up to 0.5 mmol/L lower than serum values. Performed By: #### L AB17, LAB46, LAB99 ####Lathe Turner: SHENA GUERIN ([id number])[facility] (SBHLAB)[address] Protein [Mass/Vol] 8.0 g/dL Normal 6.4-8.3 [facility] Comment on above: Performed By: #### L AB17, LAB46, LAB99 ####Lathe Turner: SHENA GUERIN ([id number])[facility] (SBHLAB)[address] Sodium [Moles/Vol] 137 mmol/L Normal 136-145 [facility] Comment on above: Performed By: #### L AB17, LAB46, LAB99 ####Lathe Turner: SHENA GUERIN ([id number])[facility] (SBHLAB)[address] Urea nitrogen [Mass/Vol] 4 mg/dL Low 8-21 [facility] Comment on above: Performed By: #### L AB17, LAB46, LAB99 ####Lathe Turner: SHENA GUERIN ([id number])[facility] (SBHLAB)[address] ABDOMEN PELVIS W CONTRAST on 04-04-2024 CT ABDOMEN PELVIS W CONTRAST Normal [facility] CT Abdomen and Pelvis W cont rast Ellen 04-04-2024 1. Mild peripancreat ic fat stranding and edema; correlate with mild acute pancreatitis. 2. The liver demonstrates generalized diminished attenuation as compared to the spleen, compatible with hepatic steatosis. Report Dictated on Electronically Signed By: Doug Parker MD Electronically Signed Date/Time: 04/04/2024 5:54 AM [facility] [employer] Patient Name: RORO CLAIRE : 1985 Exam Date/Time: 04/04/2024 05:20 Procedure: CT ABDOMEN PELVIS W CONTRAST Ordering Provider: BOYD AKASH Reason For Exam: epigastric pain, abnormal LFTs CT ABDOMEN AND PELVIS WITH CONTRAST CLINICAL INDICATION: Abdominal pain. TECHNIQUE: Multi-axial 3mm sections through the abdomen and pelvis following 75 mL of Isoview contrast media. No oral contrast was administered. Coronal and sagittal reconstructions were reviewed. Dose reduction was employed with automated exposure control. COMPARISON: January 20, 2024. FINDINGS: Lower thorax: Normal. Stomach: Unremarkable. Liver: Normal size and contours. The liver demonstrates generalized diminished attenuation as compared to the spleen, compatible with hepatic steatosis. No focal lesion. Biliary tree: Unremarkable gallbladder by CT. No biliary dilatation. Spleen: Normal. Adrenals: Normal. Pancreas: Mild peripancreatic fat stranding and edema; correlate with mild acute pancreatitis. No ductal dilation or pancreatic necrosis. Kidneys: Symmetric contrast enhancement without evidence of hydronephrosis. No focal renal lesion is identified. Free air or fluid: None. Mesenteric/retroperiton eal: No adenopathy or inflammation. Aorta: Normal caliber of aorta and bilateral common iliac arteries. Bowel: Post appendectomy. No inflammatory change or bowel dilatation is noted. Urinary bladder: Unremarkable. Abdominal wall/soft tissues: No ventral hernia is evident. Inguinal: No lymphadenopathy. Osseous structures: Unremarkable osseous structures. No suspicious osseous lesion. [facility] EMERGENCY [facility] RADIOLOGY SYSTEM Doug Parker MD - 04/04/2024 Patient Name: RORO VALDIVIA : 1985 Exam Date/Time: 04/04/2024 05:20 Procedure: CT ABDOMEN PELVIS W CONTRAST Ordering Provider: BOYD AKASH Reason For Exam: epigastric pain, abnormal LFTs CT ABDOMEN AND PELVIS WITH CONTRAST CLINICAL INDICATION: Abdominal pain. TECHNIQUE: Multi-axial 3mm sections through the abdomen and pelvis following 75 mL of Isoview contrast media. No oral contrast was administered. Coronal and sagittal reconstructions were reviewed. Dose reduction was employed with automated exposure control. COMPARISON: January 20, 2024. FINDINGS: Lower thorax: Normal. Stomach: Unremarkable. Liver: Normal size and contours. The liver demonstrates generalized diminished attenuation as compared to the spleen, compatible with hepatic steatosis. No focal lesion. Biliary tree: Unremarkable gallbladder by CT. No biliary dilatation. Spleen: Normal. Adrenals: Normal. Pancreas: Mild peripancreatic fat stranding and edema; correlate with mild acute pancreatitis. No ductal dilation or pancreatic necrosis. Kidneys: Symmetric contrast enhancement without evidence of hydronephrosis. No focal renal lesion is identified. Free air or fluid: None. Mesenteric/retroperiton eal: No adenopathy or inflammation. Aorta: Normal caliber of aorta and bilateral common iliac arteries. Bowel: Post appendectomy. No inflammatory change or bowel dilatation is noted. Urinary bladder: Unremarkable. Abdominal wall/soft tissues: No ventral hernia is evident. Inguinal: No lymphadenopathy. Osseous structures: Unremarkable osseous structures. No suspicious osseous lesion. IMPRESSION: 1. Mild peripancreatic fat stranding and edema; correlate with mild acute pancreatitis. 2. The liver demonstrates generalized diminished attenuation as compared to the spleen, compatible with hepatic steatosis. Report Dictated on Electronically Signed By: Doug Parker MD Electronically Signed Date/Time: 04/04/2024 5:54 AM EST [facility] Radiology Study observation (narrative) [facility] CT Abdomen and Pelvis W cont rast IVOrdered By: Doug Parker on 04-04-2024 [facility] Work Phone: Comprehensive metabolic 1998 panelon 04-04-2024 Albumin [Mass/Vol] 4.3 g/dL 3.5 - 5.0 g/dL [facility] ALP [Catalytic activity/Vol] 183 U/L High 40 - 150 U/L [facility] ALT [Catalytic activity/Vol] 166 U/L High NINF - 40 U/L [facility] Anion gap [Moles/Vol] 14 mmol/L High 3 - 13 mmol/L [facility] AST [Catalytic activity/Vol] 258 U/L High NINF - 34 U/L [facility] Bilirubin [Mass/Vol] 1 mg/dL NINF - 1.2 mg/dL [facility] Calcium [Mass/Vol] 9.3 mg/dL 8.4 - 10. 2 mg/dL [facility] Chloride [Moles/Vol] 102 mmol/L 98 - 10 7 mmol/L [facility] CO2 [Moles/Vol] 21 mmol/L Low 22 - 29 mmol/L [facility] Creatinine [Mass/Vol] 0.72 mg/dL 0.72 - 1.25 mg/dL [facility] GFR/1.73 sq M.predicted (S/P/Bld) [Vol rate/Area] - PINF [facility] Comment on above: Calculation based on the Chronic Kidney Disease Epidemiology Collaboration (CKD-EPI) equation refit without adjustment for race Glucose [Mass/Vol] 150 mg/dL High 74 - 100 mg/dL [facility] Potassium [Moles/Vol] 3.5 mmol/L 3.5 - 5.1 mmol/L [facility] Comment on above: Plasma potassium víctor ues may be up to 0.5 mmol/L lower than serum values. Protein [Mass/Vol] 8 g/dL 6.4 - 8.3 g/dL [facility] Sodium [Moles/Vol] 137 mmol/L 136 - 145 mmol/L [facility] Urea nitrogen [Mass/Vol] 4 mg/dL Low 8 - 21 mg/dL [facility] Health Consulton 04-04-2024 Consult Normal [facility] Consult Normal [facility] DRUGS OF ABUSEon 04-04-2024 AMPHETAMINE SCREEN Positive Normal [facility] Comment on above: Performed By: #### L [id number] ####Lathe Turner: SHENA GUERIN ([id number])[facility] (SBHLAB)[address] BARBITURATES SCREEN Negative Normal [facility] Comment on above: Performed By: #### L [id number] ####Lathe Turner: SHENA GUERIN ([id number])[facility] ([facility])[address] BENZODIAZEPINE SCREEN Negative [facility] Comment on above: Performed By: #### L [id number] ####Lathe Turner: SHENA GUERIN ([id number])[facility] (SBHLAB)[address] COCAINE METAB. SCREEN Negative Normal [facility] Comment on above: Performed By: #### L [id number] ####Lathe Turner: SHENA GUERIN ([id number])[facility] ([facility])[address] [place] [address] FENTANYL SCREEN, UR QUAL Negative Normal [facility] Comment on above: Result Comment: PIEDAD Echeverria COMMENTS:ADD ON TO SPECIMENThe expected value for all of the drugs listed above is Negative.The following drugs or drug groups have been screened for by Immunoassay at the following thresholds:Amphetamine class (1000 ng/mL)Barbiturates (200 ng/mL)Benzodiazepines (200 ng/mL)Cocaine (300 ng/mL)Methadone (300 ng/mL)Opiates (300 ng/mL)Oxycodone (100 ng/mL)PCP (25 ng/mL)Fentanyl (1.0 ng/ml)NOTE: These results are for medical treatment only. Analysis performed using non-forensic procedures. POSITIVE results are NOT confirmed by a more specificalternative method unless requested. If confirmation is needed, request confirmation under separate order. Performed By: #### L [id number] ####Lathe Turner: SHENA GUERIN ([id number])[facility]AMPUSA [place] (SBHLAB)[address] METHADONE SCREEN Negative Normal [facility] Comment on above: Performed By: #### L [id number] ####Lathe Turner: SHENA CHAMPAGNEBETTY ([id number])[facility] CAMPUSA [place] (SBHLAB)[address] OPIATES SCREEN Positive Normal [facility] Comment on above: Performed By: #### L [id number] ####Lathe Turner: SHENA CHAMPAGNEBETTY ([id number])[facility] CAMPUSA [place] (SBHLAB)[address] OXYCODONE SCREEN Negative Normal [facility] Comment on above: Performed By: #### L [id number] ####Lathe Turner: SHENA GUERIN ([id number])[facility] CAMPUSA [place] (SBHLAB)[address] PHENCYCLIDINE SCREEN Negative Normal [facility] Comment on above: Performed By: #### L [id number] ####Lathe Turner: SHENA CHAMPAGNEBETTY ([id number])[facility] (SBHLAB)[address] ECG 12-LEADon 04-04-2024 ECG 12-LEAD IMPRESSION: Sinus rhythm LVH by voltage No change compared to previous ekg Electronically Signed On 04-04-2024 14:20:40 EST by Grady [facility] ECG 12-LEAD IMPRESSION: Sinus tachycardia No change compared to previous ekg Electronically Signed On 04-04-2024 08:54:10 EST by Grady [facility] ED Provider Noteon ED Provider Note Normal [facility] ETHANOLon 04-04-2024 ETHANOL IN SER/PLAS 222 mg/dL High <10 [facility] Comment on above: Result Comment: This sample may have been collected by using an alcohol pad to swab the skin. Ethanol-containing antiseptics before venipuncture may not be causes of spurious or false positive results of alcohol measurement at least when ideal venipunctures can be performed. However, under non-ideal collection conditions, alcohol contamination is a possibility. Results to be correlated clinically.ORDER COMMENTS: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NOTE: This result is for medical treatment only. Analysis performed using non-forensic procedures. Performed By: #### L AB17, LAB46, LAB99 ####Lathe Turner: SHENA GUERIN ([id number])[facility] ([facility])[address] [place] [address] ETHYL GLUCURONIDE SCREEN, UR INEon 04-04-2024 ETHYL GLUCURONIDE, URINE Positive Normal Negative [facility] Comment on above: Result Comment: PIEDAD Echeverria COMMENTS:Ethyl Glucuronide has been screened by Immunoassay at a 500 ng/mL threshold. POSITIVE results are not confirmed by a more specific alternative method unless requested. If confirmation is needed, request confirmation under separate order.NOTE: These results are for medical treatment only. Analysis performed using non-forensic procedures.This test has not been cleared by the [place] Food and Drug Administration (FDA). The FDA has determined that such clearance or approval is not necessary. The performance characteristics have been determined by the clinical laboratories of [facility]. Performed By: #### L [id number] ####Lathe Turner: JUDITH MARKHMA ([id number])[facility] ([facility])[address] [place] [address] Ethanol (Bld) [Mass/Vol]on 0 04-04-2024 Ethanol [Mass/Vol] 222 mg/dL High NINF - 10 mg/dL [facility] Comment on above: This sample may have been collected by using an alcohol pad to swab the skin. Ethanol-containing antiseptics before venipuncture may not be causes of spurious or false positive results of alcohol measurement at least when ideal venipunctures can be performed. However, under non-ideal collection conditions, alcohol contamination is a possibility. Results to be correlated clinically. Interpretation and review of laboratory results Abnormal [facility] BAKERY DEMONSTRATOR depression is se en >100 mg/dL. NOTE: This result is for medical treatment only. Analysis performed using non-forensic procedures. [facility] LACTIC ACID WITH REFLEXon Lactate [Moles/Vol] 2.0 mmol/L Normal 0.5-2.2 [facility] Comment on above: Performed By: #### L [id number] ####Lathe Turner: SHENA GUERIN ([id number])[facility] ([facility])[address] Lactate [Moles/Vol] 3.0 mmol/L High 0.5-2.2 [facility] Comment on above: Performed By: #### L [id number] ####Lathe Turner: SHENA GUERIN ([id number])[facility] ([facility])[address] [place] [address] Lactate [Moles/Vol] 2.6 mmol/L High 0.5-2.2 [facility] Comment on above: Performed By: #### L [id number] ####Lathe Turner: SHENA GUERIN ([id number])[facility] ([facility])[address] [place] [address] LIPASEon 04-04-2024 Lipase [Catalytic activity/Vol] 101 U/L High <55 [facility] Comment on above: Performed By: #### L AB17, LAB46, LAB99 ####Lathe Turner: SHENA GUERIN ([id number])[facility] ([facility])[address] [place] [address] Laboratory - Chemistry and C hemistry - challengeon 04-04-2024 Lactate [Moles/Vol] 2 mmol/L 0.5 - 2. 2 mmol/L [facility] Lactate [Moles/Vol] 3 mmol/L High 0.5 - 2. 2 mmol/L [facility] Lactate [Moles/Vol] 2.6 mmol/L High 0.5 - 2. 2 mmol/L [facility] Lipase [Catalytic activity/Vol] 101 U/L High NINF - 55 U/L [facility] Laboratory - Coagulationon 0 04-04-2024 aPTT Coag (PPP) [Time] 27.1 s 20.0 - 30.5 s [facility] INR Coag (PPP) [Relative time] 1.1 {INR} 0.9 - 1.1 [facility] Comment on above: Recommended Anticoag ulant Therapy: SEE BELOW ----- INR of 2.0 - 3.0 : - Prophylaxis of Venous Thrombosis (high-risk surgery) - Treatment of Venous Thrombosis - Treatment of Pulmonary Embolism (Includes tissue heart valves, Acute Myocardial Infarction to prevent systemic embolism, Valvular Heart Disease, and Atrial Fibrillation) ----- INR of 2.5 - 3.5 : - Mechanical Prosthetic Valves (high risk) - If oral anticoagulant therapy is used to prevent Myocardial Infarction PT Coag (Bld) [Time] 12.8 s High 9.0 - 12.0 s [facility] Laboratory - Drug toxicology on 04-04-2024 Amphetamines Screen method >1000 ng/mL Ql (U) Positive [facility] Barbiturates Screen method >200 ng/mL Ql (U) Negative [facility] Benzodiazepines Ql (U) Negative [facility] Methadone Screen Ql (U) Negative [facility] Opiates Screen Ql (U) Positive [facility] oxyCODONE Ql (U) Negative [facility] Phencyclidine Ql (U) Negative [facility] No Panel Informationon 04-04 P [place] 51 degrees [facility] ME Interval 158 ms [facility] QRS [place] -6 degrees [facility] QRSD Interval 91 ms [facility] QT Interval 387 ms [facility] QTC Interval 447 ms [facility] T Wave [place] 6 degrees [facility] Sinus rhythm LVH by voltage No change compared to previous ekg Electronically Signed On 04-04-2024 14:20:40 EST by Grady Dial M D - 04/04/2024 IMPRESSION: Sinus rhythm LVH by voltage No change compared to previous ekg Electronically Signed On 04-04-2024 14:20:40 EST by Grady Julien [facility] Interpretation and review of laboratory results Normal [facility] COCAINE METAB. SCREEN Negative [facility] FENTANYL SCREEN, UR QUAL Negative [facility] The expected value f or all of the drugs listed above is Negative. The following drugs or drug groups have been screened for by Immunoassay at the following thresholds: Amphetamine class (1000 ng/mL) Barbiturates (200 ng/mL) Benzodiazepines (200 ng/mL) Cocaine (300 ng/mL) Methadone (300 ng/mL) Opiates (300 ng/mL) Oxycodone (100 ng/mL) PCP (25 ng/mL) Fentanyl (1.0 ng/ml) NOTE: These results are for medical treatment only. Analysis performed using non-forensic procedures. POSITIVE results are NOT confirmed by a more specific alternative method unless requested. If confirmation is needed, request confirmation under separate order. [facility] Interpretation and review of laboratory results Abnormal [facility] Interpretation and review of laboratory results [facility] Sinus tachycardia No change compared to previous ekg Electronically Signed On 04-04-2024 08:54:10 EST by Grady Dial M D - 04/04/2024 IMPRESSION: Sinus tachycardia No change compared to previous ekg Electronically Signed On 04-04-2024 08:54:10 EST by Grady Julien [facility] Interpretation and review of laboratory results Abnormal [facility] Interpretation and review of laboratory results Abnormal [facility] No Panel InformationOrdered By: Christiano Hadley on 04-04-2024 ETHYL GLUCURONIDE, URINE Positive Negative [facility] Ethyl Glucuronide castillo s been screened by Immunoassay at a 500 ng/mL threshold. POSITIVE results are not confirmed by a more specific alternative method unless requested. If confirmation is needed, request confirmation under separate order. NOTE: These results are for medical treatment only. Analysis performed using non-forensic procedures. This test has not been cleared by the US Food and Drug Administration (FDA). The FDA has determined that such clearance or approval is not necessary. The performance characteristics have been determined by the clinical laboratories of [facility]. [facility] No Panel InformationOrdered By: Grady Julien on 04-04-2024 P [place] 27 degrees [facility] Work Phone: ME Interval 163 ms [facility] Work Phone: QRS [place] 54 degrees [facility] Work Phone: QRSD Interval 93 ms [facility] Work Phone: QT Interval 333 ms [facility] Work Phone: QTC Interval 467 ms [facility] Work Phone: T Wave [place] 16 degrees [facility] Work Phone: [facility] Work Phone: PROTIME AND APTTon aPTT Coag (Bld) [Time] 27.1 s Normal 20.0-30.5 [facility] Comment on above: Performed By: #### L [id number] ####Lathe Turner: SHENA GUERIN ([id number])[facility] ([facility])[address] INR Coag (PPP) [Relative time] 1.1 {INR} Normal 0.9-1.1 [facility] Comment on above: Result Comment: Mason mmended Anticoagulant Therapy: SEE BELOW----- INR of 2.0 - 3.0 : - Prophylaxis of Venous Thrombosis (high-risk surgery) - Treatment of Venous Thrombosis - Treatment of Pulmonary Embolism (Includes tissue heart valves, Acute Myocardial Infarction to prevent systemic embolism, Valvular Heart Disease, and Atrial Fibrillation)----- INR of 2.5 - 3.5 : - Mechanical Prosthetic Valves (high risk) - If oral anticoagulant therapy is used to prevent Myocardial Infarction Performed By: #### L [id number] ####Lathe Turner: SHENA GUERIN ([id number])[facility]USKyler [facility] ([facility])[address] [place] [address] PT Coag (PPP) [Time] 12.8 s High 9.0-12.0 [facility] Comment on above: Performed By: #### L [id number] ####Lathe Turner: SHENA GUERIN ([id number])[facility] ([facility])[address] [place] [address] Progress Noteon 04-04-2024 Progress Note Normal [facility] Progress Note Normal [facility] Urinalysis complete panel (U )on 04-04-2024 Bilirubin Ql (U) Negative Negative mg/dL [facility] Clarity (U) Clear Clear [facility] Color (U) Light Yellow Lt. Yellow [facility] Glucose Ql (U) Normal Normal (<70) mg/dL [facility] Hemoglobin Ql (U) Negative Negative mg/dL [facility] Interpretation and review of laboratory results Normal [facility] Ketones (U) [Mass/Vol] Negative Negat chan mg/dL [facility] Leukocyte esterase Test strip Ql (U) Negative Negative Teofilo/uL [facility] Nitrite Ql (U) Negative Negative [facility] pH (U) 6.0 [pH] 5.0 - 8.0 pH [facility] Protein (U) [Mass/Vol] Negative Negat chan mg/dL [facility] Specific gravity (U) [Rel density] 1.008 1.005 - 1.030 [facility] Urobilinogen (U) [Mass/Vol] Normal Normal (0-1) mg/dL [facility] Vital signson 04-04-2024 Heart rate 80 /min bpm [facility] Vital signsOrdered By: Gato Julien on 04-04-2024 Heart rate 118 /min bpm [facility] Work Phone: Progress Noteon 03-30-2024 Progress Note Normal [facility] 36on 03-29-2024 36 LVM for patient, advising ok for virtual per Dr. Escobar Appt has been updated to virtual Normal [facility] 36 Is it ok to move patient to a virtual appointment? Normal [facility] 36 Normal [facility] 36on 03-23-2024 36 Normal [facility] CBC (HEMOGRAM)on 03-22-2024 Erythrocyte distribution width (RBC) [Ratio] 14.9 % Normal 11.5-15.0 [facility] Comment on above: Performed By: #### L [id number] ####Lathe Turner: SHENA GUERIN ([id number])[facility] ([facility])[address] [place] [address] Hematocrit (Bld) [Volume fraction] 45.4 % Normal 40.0-52.0 [facility] Comment on above: Performed By: #### L [id number] ####Lathe Turner: SHENA [id number])[facility] ([facility])[address] Hemoglobin (Bld) [Mass/Vol] 15.3 g/dL Normal 13.0-18.0 [facility] Comment on above: Performed By: #### L [id number] ####Lathe Turner: SHENA GUERIN ([id number])[facility]USKyler [facility] ([facility])[address] MCH (RBC) [Entitic mass] 29.4 pg Normal 26.0-34.0 [facility] Comment on above: Performed By: #### L [id number] ####Lathe Turner: SHENA GUERIN ([id number])[facility]AMPUSKyler [place] ([facility])[address] MCHC 33.7 % Normal 30.5-36.0 [facility] Comment on above: Performed By: #### L [id number] ####Lathe Turner: SHENA GUERIN ([id number])[facility]AMPUSKyler [place] ([facility])[address] MCV (RBC) [Entitic vol] 87.1 fL Normal 77.0-99.0 [facility] Comment on above: Performed By: #### L [id number] ####Lathe Turner: SHENA GUERIN ([id number])[facility]AMPUSKyler [facility] ([facility])[address] [place] [address] Platelet mean volume (Bld) [Entitic vol] 9.7 fL Normal 9.0-12.7 [facility] Comment on above: Performed By: #### L [id number] ####Lathe Turner: SHENA GUERIN ([id number])[facility]AMPUSKyler [place] ([facility])[address] [place] [address] [place] Platelets (Bld) [#/Vol] 286 10*3/uL Normal 140-440 [facility] Comment on above: Performed By: #### L [id number] ####Lathe Turner: SHENA GUERIN ([id number])[facility] ([facility])[address] RBC (Bld) [#/Vol] 5.21 10*6/uL Normal 4.40-5.90 [facility] Comment on above: Performed By: #### L [id number] ####Lathe Turner: SHENA GUERIN ([id number])[facility]AMPUSKyler [place] ([facility])[address] WBC (Bld) [#/Vol] 6.6 10*3/uL Normal 3.6-10.7 [facility] Comment on above: Performed By: #### L [id number] ####Lathe Turner: SHENA GUERIN ([id number])[facility]AMPUSKyler [facility] ([facility])[address] [place] [address] CBC panel Auto (Bld)on 03-22 Erythrocyte distribution width (RBC) [Ratio] 14.9 % 11.5 - 15.0 % [facility] Hematocrit (Bld) [Volume fraction] 45.4 % 40.0 - 52.0 % [facility] Hemoglobin (Bld) [Mass/Vol] 15.3 g/dL 13.0 - 18.0 g/dL [facility] Interpretation and review of laboratory results Normal [facility] MCH (RBC) [Entitic mass] 29.4 pg 26.0 - 34.0 pg [facility] MCHC (RBC) [Mass/Vol] 33.7 % 30.5 - 36.0 % [facility] MCV (RBC) [Entitic vol] 87.1 fL 77.0 - 99.0 fL [facility] Platelet mean volume (Bld) [Entitic vol] 9.7 fL 9.0 - 12.7 fL [facility] Platelets (Bld) [#/Vol] 286 10*3/uL 140 - 440 10*3/uL [facility] RBC (Bld) [#/Vol] 5.21 10*6/uL 4.40 - 5.9 0 10*6/uL [facility] WBC (Bld) [#/Vol] 6.6 10*3/uL 3.6 - 10.7 10*3/uL [facility] COMPREHENSIVE METABOLIC PANE Rylan 02-11-2025 Albumin [Mass/Vol] 4.5 g/dL Normal 3.5-5.0 [facility] Comment on above: Performed By: #### L AB99, LAB17 ####Lathe Turner: SHENA GUERIN ([id number])[facility] S[facility] CAMPUSA [place] ([facility])[address] ALP [Catalytic activity/Vol] 167 U/L High 40-150 [facility] Comment on above: Performed By: #### L AB99, LAB17 ####Lathe Turner: SHENA GUERIN ([id number])[facility] CAMPUSA [place] ([facility])[address] [place] [address] [place] ALT [Catalytic activity/Vol] 191 U/L High <40 [facility] Comment on above: Performed By: #### L CLARISSE, LAB17 ####Lathe Turner: SHENA GUERIN ([id number])[facility] CAMPUSA [place] ([facility])[address] [place] [address] [place] Anion gap [Moles/Vol] 17 mmol/L High 3-13 [facility] Comment on above: Performed By: #### L ABIsai, LAB17 ####Lathe Turner: SHENA GUERIN ([id number])[facility] CAMPUSA [place] ([facility])[address] [place] [address] [place] AST [Catalytic activity/Vol] 260 U/L High <34 [facility] Comment on above: Performed By: #### L ABIsai, LAB17 ####Lathe Turner: SHENA GUERIN ([id number])[facility] CAMPUSA [place] ([facility])[address] [place] [address] [place] Bilirubin [Mass/Vol] 0.9 mg/dL Normal <1.2 [facility] Comment on above: Performed By: #### L AB99, LAB17 ####Lathe Turner: SHENA GUERIN ([id number])[facility] CAMPUSA [place] ([facility])[address] [place] [address] [place] Calcium [Mass/Vol] 9.6 mg/dL Normal 8.4-10.2 [facility] Comment on above: Performed By: #### L AB99, LAB17 ####Lathe Turner: SHENA GUERIN ([id number])[facility] CAMPUSKyler ENGELCAPRICEN ([facility])[address] Chloride [Moles/Vol] 103 mmol/L Normal 98-107 [facility] Comment on above: Performed By: #### L AB99, LAB17 ####Lathe Turner: SHENA GUERIN ([id number])[facility] CAMPUSA [facility]BC[facility]ITALN ([facility])[address] CO2 [Moles/Vol] 19 mmol/L Low 22-29 [facility] Comment on above: Performed By: #### L AB99, LAB17 ####Lathe Turner: SHENA GUERIN ([id number])[facility]AMPUSKyler [facility]ITALN ([facility])[address] Creatinine [Mass/Vol] 0.73 mg/dL Normal 0.72-1.25 [facility] Comment on above: Performed By: #### L AB99, LAB17 ####Lathe Turner: SHENA GUERIN ([id number])[facility] CAMPUSA [facility] ([facility])[address] GLOMERULAR FILTRATION RATE ML/MIN/1.73 SQ M.PREDICTED >90.0 Normal >60.0 [facility] Comment on above: Result Comment: Calc ulation based on the Chronic Kidney Disease Epidemiology Collaboration (CKD-EPI) equation refit without adjustment for race Performed By: #### L AB99, LAB17 ####Lathe Turner: SHENA GUERIN ([id number])[facility] CAMPUSA [place] ([facility])[address] [place] [address] [place] Glucose [Mass/Vol] 114 mg/dL High 74-100 [facility] Comment on above: Performed By: #### L AB99, LAB17 ####Lathe Turner: SHENA GUERIN ([id number])[facility] CAMPUSA [facility] ([facility])[address] [place] [address] [place] Potassium [Moles/Vol] 4.0 mmol/L Normal 3.5-5.1 [facility] Comment on above: Result Comment: [facility] potassium values may be up to 0.5 mmol/L lower than serum values. Performed By: #### L AB99, LAB17 ####Lathe Turner: SHENA GUERIN ([id number])[facility] CAMPUSA [facility] ([facility])[address] Protein [Mass/Vol] 8.5 g/dL High 6.4-8.3 [facility] Comment on above: Performed By: #### L AB99, LAB17 ####Lathe Turner: SHENA GUERIN ([id number])[facility] CAMPUSA [facility] ([facility])[address] Sodium [Moles/Vol] 139 mmol/L Normal 136-145 [facility] Comment on above: Performed By: #### L AB99, LAB17 ####Lathe Turner: SHENA GUERIN ([id number])[facility] CAMPUSA [facility] ([facility])[address] Urea nitrogen [Mass/Vol] 3 mg/dL Low 8-21 [facility] Comment on above: Performed By: #### L AB99, LAB17 ####Lathe Turner: SHE[facility]IN ([id number])[facility] Comprehensive metabolic 1998 panelon 03-22-2024 Albumin [Mass/Vol] 4.5 g/dL 3.5 - 5.0 g/dL [facility] ALP [Catalytic activity/Vol] 167 U/L High 40 - 150 U/L [facility] ALT [Catalytic activity/Vol] 191 U/L High NINF - 40 U/L [facility] Anion gap [Moles/Vol] 17 mmol/L High 3 - 13 mmol/L [facility] AST [Catalytic activity/Vol] 260 U/L High NINF - 34 U/L [facility] Bilirubin [Mass/Vol] 0.9 mg/dL NINF - 1.2 mg/dL [facility] Calcium [Mass/Vol] 9.6 mg/dL 8.4 - 10. 2 mg/dL [facility] Chloride [Moles/Vol] 103 mmol/L 98 - 10 7 mmol/L [facility] CO2 [Moles/Vol] 19 mmol/L Low 22 - 29 mmol/L [facility] Creatinine [Mass/Vol] 0.73 mg/dL 0.72 - 1.25 mg/dL [facility] GFR/1.73 sq M.predicted (S/P/Bld) [Vol rate/Area] - PINF [facility] Comment on above: Calculation based on the Chronic Kidney Disease Epidemiology Collaboration (CKD-EPI) equation refit without adjustment for race Glucose [Mass/Vol] 114 mg/dL High 74 - 100 mg/dL [facility] Interpretation and review of laboratory results Abnormal [facility] Potassium [Moles/Vol] 4 mmol/L 3.5 - 5.1 mmol/L [facility] Comment on above: Plasma potassium víctor ues may be up to 0.5 mmol/L lower than serum values. Protein [Mass/Vol] 8.5 g/dL High 6.4 - 8.3 g/dL [facility] Sodium [Moles/Vol] 139 mmol/L 136 - 145 mmol/L [facility] Urea nitrogen [Mass/Vol] 3 mg/dL Low 8 - 21 mg/dL [facility] ED Nursing Noteon 03-22-2024 ED Nursing Note Normal [facility] ED Nursing Note Normal [facility] ED Provider Noteon ED Provider Note Normal [facility] LIPASEon 03-22-2024 Lipase [Catalytic activity/Vol] 125 U/L High <55 [facility] Comment on above: Performed By: #### L AB99, LAB17 ####Lathe Turner: SHENA GUERIN ([id number])[facility] ([facility])[address] [place] [address] Laboratory - Chemistry and C hemistry - challengeon 03-22-2024 Lipase [Catalytic activity/Vol] 125 U/L High NINF - 55 U/L [facility] Lipase [Catalytic activity/V ol]on 03-22-2024 Interpretation and review of laboratory results Abnormal [facility] 36on 02-23-2024 36 Patients appointment has been moved to 03/09/24 at 3pm Normal [facility] 36on 02-22-2024 36 Normal [facility] 36 LVM with pnt to call office to get rescheduled from the to the [facility] 36on 02-20-2024 36 Called patient for follow up, voicemail received, message left. Normal [facility] [id number] 02-08-2024 [id number] Normal [facility] [id number] Normal [facility] 94on 02-08-2024 94 Normal [facility] Nursing Noteon 02-08-2024 Nursing Note Normal [facility] Nursing Note Normal [facility] Nursing Note Normal [facility] 30on 02-07-2024 30 Normal [facility] Nursing Noteon 02-07-2024 Nursing Note Normal [facility] Progress Noteon 02-07-2024 Progress Note Normal [facility] Progress Note Normal [facility] 30on 02-06-2024 30 Normal [facility] 30 Pt able to verbalize signs/symptoms of withdrawal . Normal [facility] Consulton 02-06-2024 Consult Normal [facility] Nursing Noteon 02-06-2024 Nursing Note Normal [facility] Nursing Note Normal [facility] Progress Noteon 02-06-2024 Progress Note Normal [facility] Progress Note Normal [facility] Progress Note Normal [facility] [id number] 02-05-2024 [id number] Normal [facility] BASIC METABOLIC PANELon 01-10 Anion gap [Moles/Vol] 10 mmol/L Normal 3-13 [facility] Comment on above: Performed By: #### L AB15 ####Lathe Turner: JUDITH MARKHAM ([id number])[facility] ([facility])[address] [place] [address] Calcium [Mass/Vol] 8.4 mg/dL Normal 8.4-10.2 [facility] Comment on above: Performed By: #### L AB15 ####Lathe Turner: JUDITH MARKHAM ([id number])[facility] ([facility])[address] [place] [address] Chloride [Moles/Vol] 107 mmol/L Normal 98-107 [facility] Comment on above: Performed By: #### L AB15 ####Lathe Turner: JUDITH MARKHAM ([id number])[facility] ([facility])[address] [place] [address] CO2 [Moles/Vol] 23 mmol/L Normal 22-29 [facility] Comment on above: Performed By: #### L AB15 ####Lathe Turner: JUDITH MARKHAM ([id number])[facility] [place] [address] Creatinine [Mass/Vol] 0.64 mg/dL Low 0.72-1.25 [facility] Comment on above: Performed By: #### L AB15 ####Lathe Turner: JUDITH MARKHAM ([id number])[facility] ([facility])[address] [place] [address] GLOMERULAR FILTRATION RATE ML/MIN/1.73 SQ M.PREDICTED >90.0 Normal >60.0 [facility] Comment on above: Result Comment: Calc ulation based on the Chronic Kidney Disease Epidemiology Collaboration (CKD-EPI) equation refit without adjustment for race Performed By: #### L AB15 ####Lathe Turner: JUDITH MARKHAM ([id number])[facility] ([facility])[address] [place] [address] Glucose [Mass/Vol] 100 mg/dL Normal 74-100 [facility] Comment on above: Performed By: #### L AB15 ####Lathe Turner: JUDITH MARKHAM ([id number])[facility] [place] [address] [place] Potassium [Moles/Vol] 4.3 mmol/L Normal 3.5-5.1 [facility] Comment on above: Result Comment: [facility] potassium values may be up to 0.5 mmol/L lower than serum values. Performed By: #### L AB15 ####[facility] Turner: JUDITH MARKHAM ([id number])[facility])[address] Sodium [Moles/Vol] 140 mmol/L Normal 136-145 [facility] Comment on above: Performed By: #### L AB15 ####Lathe Turner: JUDITH MARKHAM ([id number])[facility] ([facility])[address] [place] [address] Urea nitrogen [Mass/Vol] 4 mg/dL Low 8-21 [facility] Comment on above: Performed By: #### L AB15 ####Lathe Turner: JUDITH MARKHAM ([id number])[facility] ([facility])[address] [place] [address] Basic metabolic 1998 panelon 02-05-2024 Anion gap [Moles/Vol] 10 mmol/L 3 - 13 mmol/L [facility] Calcium [Mass/Vol] 8.4 mg/dL 8.4 - 10. 2 mg/dL [facility] Chloride [Moles/Vol] 107 mmol/L 98 - 10 7 mmol/L [facility] CO2 [Moles/Vol] 23 mmol/L 22 - 29 mmol/L [facility] Creatinine [Mass/Vol] 0.64 mg/dL Low 0.72 - 1.25 mg/dL [facility] GFR/1.73 sq M.predicted (S/P/Bld) [Vol rate/Area] - PINF [facility] Comment on above: Calculation based on the Chronic Kidney Disease Epidemiology Collaboration (CKD-EPI) equation refit without adjustment for race Glucose [Mass/Vol] 100 mg/dL 74 - 100 mg/dL [facility] Interpretation and review of laboratory results Abnormal [facility] Potassium [Moles/Vol] 4.3 mmol/L 3.5 - 5.1 mmol/L [facility] Comment on above: Plasma potassium víctor ues may be up to 0.5 mmol/L lower than serum values. Sodium [Moles/Vol] 140 mmol/L 136 - 145 mmol/L [facility] Urea nitrogen [Mass/Vol] 4 mg/dL Low 8 - 21 mg/dL [facility] CBC W Auto Differential pane l (Bld)on 02-05-2024 Basophils (Bld) [#/Vol] 0.1 10*3/uL 0.0 - 0.2 10*3/uL [facility] Basophils/100 WBC (Bld) 1 % 0.0 - 2.0 % [facility] Eosinophils (Bld) [#/Vol] 0.1 10*3/uL 0.0 - 0.5 10*3/uL [facility] Eosinophils/100 WBC (Bld) 1 % 0.0 - 6.0 % [facility] Erythrocyte distribution width (RBC) [Ratio] 13.7 % 11.5 - 15.0 % [facility] Hematocrit (Bld) [Volume fraction] 39.1 % Low 40.0 - 52.0 % [facility] Hemoglobin (Bld) [Mass/Vol] 13.1 g/dL 13.0 - 18.0 g/dL [facility] Immature granulocytes (Bld) [#/Vol] 0 10*3/uL NINF - 0.1 10*3/uL [facility] Immature granulocytes/100 WBC (Bld) 0.2 % 0.0 - 2.0 % [facility] Interpretation and review of laboratory results Abnormal [facility] Lymphocytes (Bld) [#/Vol] 1.8 10*3/uL 1.0 - 4.3 10*3/uL [facility] Lymphocytes/100 WBC (Bld) 35.1 % 15.0 - 45.0 % [facility] MCH (RBC) [Entitic mass] 30.2 pg 26.0 - 34.0 pg [facility] MCHC (RBC) [Mass/Vol] 33.5 % 30.5 - 36.0 % [facility] MCV (RBC) [Entitic vol] 90.1 fL 77.0 - 99.0 fL [facility] Monocytes (Bld) [#/Vol] 0.4 10*3/uL 0.0 - 0.9 10*3/uL [facility] Monocytes/100 WBC (Bld) 7.4 % 5.0 - 13.0 % [facility] Neutrophils (Bld) [#/Vol] 2.8 10*3/uL 1.8 - 7.5 10*3/uL [facility] Neutrophils/100 WBC (Bld) 55.3 % 38.0 - 82.0 % [facility] Nucleated RBC/100 WBC (Bld) [Ratio] 0 % [facility] Platelet mean volume (Bld) [Entitic vol] 9.9 fL 9.0 - 12.7 fL [facility] Platelets (Bld) [#/Vol] 282 10*3/uL 140 - 440 10*3/uL [facility] RBC (Bld) [#/Vol] 4.34 10*6/uL Low 4.40 - 5.9 0 10*6/uL [facility] WBC (Bld) [#/Vol] 5 10*3/uL 3.6 - 10.7 10*3/uL [facility] CBC WITH AUTO DIFFERENTIALon 02-05-2024 Basophils (Bld) [#/Vol] 0.1 10*3/uL Normal 0.0-0.2 [facility] Comment on above: Performed By: #### L [id number] ####Lathe Turner: JUDITH MARKHAM ([id number])[facility] ([facility])[address] [place] [address] Basophils/100 WBC (Bld) 1.0 % Normal 0.0-2.0 [facility] Comment on above: Performed By: #### L [id number] ####Lathe Turner: JUDITH MARKHAM ([id number])[facility] ([facility])[address] [place] [address] [place] Eosinophils (Bld) [#/Vol] 0.1 10*3/uL Normal 0.0-0.5 [facility] Comment on above: Performed By: #### L [id number] ####Lathe Turner: JUDITH MARKHAM ([id number])[facility] ([facility])[address] [place] [address] [place] Eosinophils/100 WBC (Bld) 1.0 % Normal 0.0-6.0 [facility] Comment on above: Performed By: #### L [id number] ####Lathe Turner: JUDITH MARKHAM ([id number])[facility] ([facility])[address] [place] [address] [place] Erythrocyte distribution width (RBC) [Ratio] 13.7 % Normal 11.5-15.0 [facility] Comment on above: Performed By: #### L [id number] ####Lathe Turner: JUDITH [id number])[facility])[address] [place] [address] Hematocrit (Bld) [Volume fraction] 39.1 % Low 40.0-52.0 [facility] Comment on above: Performed By: #### L [id number] ####Lathe Turner: JUDITH MARKHAM ([id number])[facility])[address] [place] [address] Hemoglobin (Bld) [Mass/Vol] 13.1 g/dL Normal 13.0-18.0 [facility] Comment on above: Performed By: #### L [id number] ####Lathe Turner: JUDITH MARKHAM ([id number])[address] IMMATURE GRANS % 0.2 % Normal 0.0-2.0 [facility] Comment on above: Performed By: #### L [id number] ####Lathe Turner: JUDITH MARKHAM ([id number])[facility])[address] [place] [address] IMMATURE GRANS ABSOLUTE 0.0 10*3/uL Normal <0.1 [facility] Comment on above: Performed By: #### L [id number] ####Lathe Turner: JUDITH MARKHAM ([id number])[facility])[address] [place] [address] Lymphocytes (Bld) [#/Vol] 1.8 10*3/uL Normal 1.0-4.3 [facility] Comment on above: Performed By: #### L [id number] ####Lathe Turner: JUDITH MARKHAM ([id number])[facility])[address] [place] [address] Lymphocytes/100 WBC (Bld) 35.1 % Normal 15.0-45.0 [facility] Comment on above: Performed By: #### L [id number] ####Lathe Turner: JUDITH MARKHAM ([id number])[facility])[address] [place] [address] MCH (RBC) [Entitic mass] 30.2 pg Normal 26.0-34.0 [facility] Comment on above: Performed By: #### L [id number] ####Lathe Turner: JUDITH MARKHAM ([id number])[facility])[address] [place] [address] MCHC 33.5 % Normal 30.5-36.0 [facility] Comment on above: Performed By: #### L [id number] ####Lathe Turner: JUDITH MARKHAM ([id number])[facility])[address] [place] [address] MCV (RBC) [Entitic vol] 90.1 fL Normal 77.0-99.0 [facility] Comment on above: Performed By: #### L [id number] ####Lathe Turner: JUDITH MARKHAM ([id number])[facility])[address] [place] [address] Monocytes (Bld) [#/Vol] 0.4 10*3/uL Normal 0.0-0.9 [facility] Comment on above: Performed By: #### L [id number] ####Lathe Turner: JUDITH MARKHAM ([id number])[facility])[address] [place] [address] Monocytes/100 WBC (Bld) 7.4 % Normal 5.0-13.0 [facility] Comment on above: Performed By: #### L [id number] ####Lathe Turner: JUDITH MARKHAM ([id number])[facility])[address] [place] [address] NEUTROPHILS ABSOLUTE 2.8 10*3/uL Normal 1.8-7.5 [facility] Comment on above: Performed By: #### L [id number] ####Lathe Turner: JUDITH MARKHMA ([id number])[address] Neutrophils/100 WBC (Bld) 55.3 % Normal 38.0-82.0 [facility] Comment on above: Performed By: #### L [id number] ####Lathe Turner: JUDITH MARKHAM ([id number])[facility] ([facility])[address] [place] [address] NRBC 0.0 /100 WBCs Normal 0.0-2.0 [facility] Comment on above: Performed By: #### L [id number] ####Lathe Turner: JUDITH MARKHAM ([id number])[facility] ([facility])[address] [place] [address] Platelet mean volume (Bld) [Entitic vol] 9.9 fL Normal 9.0-12.7 [facility] Comment on above: Performed By: #### L [id number] ####Lathe Turner: JUDITH MARKHAM ([id number])[facility])[address] [place] [address] Platelets (Bld) [#/Vol] 282 10*3/uL Normal 140-440 [facility] Comment on above: Performed By: #### L [id number] ####Lathe Turner: JUDITH MARKHAM ([id number])[facility] ([facility])[address] [place] [address] RBC (Bld) [#/Vol] 4.34 10*6/uL Low 4.40-5.90 [facility] Comment on above: Performed By: #### L [id number] ####Lathe Turner: JUDITH MARKHAM ([id number])[facility])[address] [place] [address] WBC (Bld) [#/Vol] 5.0 10*3/uL Normal 3.6-10.7 [facility] Comment on above: Performed By: #### L [id number] ####Lathe Turner: JUDITH MARKHAM ([id number])[facility])[address] [place] [address] Consulton 02-05-2024 Consult Normal [facility] ED Nursing Noteon 02-05-2024 ED Nursing Note Transport here to ke patient to Detox 4E, RN called for protective services. Normal [facility] ED Nursing Note Report given to RN o n 4E room 410. RN stated to leave left AC IV in place. Pt put in for transport Normal [facility] ED Nursing Note Protective services at bedside with patient for belongings check and wanding. Normal [facility] ED Nursing Note RN changed patient i nto 2 gowns and socks, belongings placed in 1 bag for officers to do belongings check. Patient read and signed rules of detox. Normal [facility] Nursing Noteon 02-05-2024 Nursing Note Pt medicated with vistaril for anxiety. 2209- Vistaril effective for anxiety, pt asleep at this time. Normal [facility] Nursing Note Pt asleep at this time. Normal [facility] Nursing Note Normal [facility] Nursing Note Normal [facility] BASIC METABOLIC PANELon - Anion gap [Moles/Vol] 11 mmol/L Normal 3-13 [facility] Comment on above: Order Comment: Repea t 30min after fluids Performed By: #### L AB46, LAB15 ####Lathe Turner: JUDITH MARKHAM ([id number])[address] Calcium [Mass/Vol] 8.3 mg/dL Low 8.4-10.2 [facility] Comment on above: Order Comment: Repea t 30min after fluids Performed By: #### L AB46, LAB15 ####Lathe Turner: JUDITH MARKHAM ([id number])[address] Chloride [Moles/Vol] 109 mmol/L High 98-107 [facility] Comment on above: Order Comment: Repea t 30min after fluids Performed By: #### L AB46, LAB15 ####Lathe Turner: JUDITH MARKHAM ([id number])[address] CO2 [Moles/Vol] 24 mmol/L Normal 22-29 [facility] Comment on above: Order Comment: Repea t 30min after fluids Performed By: #### L AB46, LAB15 ####Lathe Turner: JUDITH MARKHAM ([id number])[facility] ([facility])[address] [place] [address] Creatinine [Mass/Vol] 0.67 mg/dL Low 0.72-1.25 [facility] Comment on above: Order Comment: Repea t 30min after fluids Performed By: #### L AB46, LAB15 ####Lathe Turner: JUDITH MARKHAM ([id number])[facility] ([facility])[address] [place] [address] GLOMERULAR FILTRATION RATE ML/MIN/1.73 SQ M.PREDICTED >90.0 Normal >60.0 [facility] Comment on above: Order Comment: Repea t 30min after fluids Result Comment: Calc ulation based on the Chronic Kidney Disease Epidemiology Collaboration (CKD-EPI) equation refit without adjustment for race Performed By: #### L AB46, LAB15 ####Lathe Turner: JUDITH MARKHAM ([id number])[facility])[address] [place] [address] Glucose [Mass/Vol] 115 mg/dL High 74-100 [facility] Comment on above: Order Comment: Repea t 30min after fluids Performed By: #### L AB46, LAB15 ####Lathe Turner: JUDITH MARKHAM ([id number])[address] Potassium [Moles/Vol] 4.1 mmol/L Normal 3.5-5.1 [facility] Comment on above: Order Comment: Repea t 30min after fluids Result Comment: [facility] potassium values may be up to 0.5 mmol/L lower than serum values. Performed By: #### L AB46, LAB15 ####Lathe Turner: JUDITH MARKHAM ([id number])[facility])[address] [place] [address] Sodium [Moles/Vol] 144 mmol/L Normal 136-145 [facility] Comment on above: Order Comment: Repea t 30min after fluids Performed By: #### L AB46, LAB15 ####Lathe Turner: JUDITH MARKHAM ([id number])[facility])[address] [place] [address] Urea nitrogen [Mass/Vol] 4 mg/dL Low 8-21 [facility] Comment on above: Order Comment: Repea t 30min after fluids Performed By: #### L AB46, LAB15 ####Lathe Turner: JUDITH MARKHAM ([id number])[facility])[address] [place] [address] BLOOD GAS, VENOUSon 02-04-20 Base excess Calc (BldV) [Moles/Vol] -1.9000 mmol/L Normal -3.0-3.0 [facility] Comment on above: Performed By: #### L AB79 ####Lathe Turner: JUDITH MARKHAM ([id number])[facility])[address] [place] [address] CO2 [Moles/Vol] 24.2 mmol/L Normal 24.0-28.0 [facility] Comment on above: Performed By: #### L AB79 ####Lathe Turner: JUDITH MARKHAM ([id number])[facility])[address] [place] [address] HCO3 (Bld) [Moles/Vol] 23.0 mmol/L Normal 23.0-27.0 [facility] Comment on above: Performed By: #### L AB79 ####Lathe Turner: JUDITH MARKHAM ([id number])[facility])[address] [place] [address] Hemoglobin (Bld) [Mass/Vol] 15.0 g/dL Normal Screen only [facility] Comment on above: Performed By: #### L AB79 ####Lathe Turner: JUDITH MARKHAM ([id number])[facility])[address] [place] [address] OXYGEN (MM HG) IN VENOUS BLOOD 50.3 mm Hg Normal [facility] Comment on above: Performed By: #### L AB79 ####Lathe Turner: JUDITH MARKHAM ([id number])[facility] ([address] OXYGEN SATURATION (%) IN VENOUS BLOOD 76.9 % Normal [facility] Comment on above: Performed By: #### L AB79 ####Lathe Turner: JUDITH MARKHAM ([id number])[facility])[address] [place] [address] PCO2, LYRIC 39.7 mm Hg Low 40.0-55.0 [facility] Comment on above: Performed By: #### L AB79 ####Lathe Turner: JUDITH MARKHAM ([id number])[facility])[address] [place] [address] PH VENOUS 7.380 Normal 7.330-7.430 [facility] Comment on above: Performed By: #### L AB79 ####Lathe Turner: JUDITH MARKHAM ([id number])[address] SOURCE OF OXYGEN Room Air Normal [facility] Comment on above: Result Comment: PIEDAD Echeverria COMMENTS:Repeat 30min after fluidsAssessment of oxygenation is best done with an arterial blood gas determination. Reference ranges for pO2, bicarbonate, and base excess are for mixed venous blood. Specimens drawn from a peripheral vein will often have higher values. Performed By: #### L AB79 ####Lathe Turner: JUDITH MARKHAM ([id number])[address] Base excess Calc (BldV) [Moles/Vol] -12.46255 mmol/L Low -3.0-3.0 [facility] Comment on above: Performed By: #### L AB79 ####Lathe Turner: JUDITH MARKHAM ([id number])[facility])[address] [place] [address] CO2 [Moles/Vol] 17.1 mmol/L Low 24.0-28.0 [facility] Comment on above: Performed By: #### L AB79 ####Lathe Turner: JUDITH MARKHAM ([id number])[place] [address] [place] HCO3 (Bld) [Moles/Vol] 15.8 mmol/L Low 23.0-27.0 [facility] Comment on above: Performed By: #### L AB79 ####Lathe Turner: JUDITH MARKHAM ([id number])[facility])[address] [place] [address] Hemoglobin (Bld) [Mass/Vol] 13.5 g/dL Normal Screen only [facility] Comment on above: Performed By: #### L AB79 ####Lathe Turner: JUDITH MARKHAM ([id number])[facility])[address] [place] [address] OXYGEN (MM HG) IN VENOUS BLOOD 131.7 mm Hg Normal [facility] Comment on above: Performed By: #### L AB79 ####Lathe Turner: JUDITH MARKHAM ([id number])[facility])[address] [place] [address] OXYGEN SATURATION (%) IN VENOUS BLOOD 97.4 % Normal [facility] Comment on above: Performed By: #### L AB79 ####Lathe Turner: JUDITH MARKHAM ([id number])[facility])[address] [place] [address] PCO2, LYRIC 42.7 mm Hg Normal 40.0-55.0 [facility] Comment on above: Performed By: #### L AB79 ####Lathe Turner: JUDITH MARKHAM ([id number])[facility])[address] [place] [address] PH VENOUS 7.185 Low 7.330-7.430 [facility] Comment on above: Performed By: #### L AB79 ####Lathe Turner: JUDITH MARKHAM ([id number])[facility])[address] [place] [address] SOURCE OF OXYGEN Room Air Normal [facility] Comment on above: Result Comment: PIEDAD Echeverria COMMENTS:Assessment of oxygenation is best done with an arterial blood gas determination. Reference ranges for pO2, bicarbonate, and base excess are for mixed venous blood. Specimens drawn from a peripheral vein will often have higher values. Performed By: #### L AB79 ####Lathe Turner: JUDITH MARKHAM ([id number])[facility] ([address] Basic metabolic 1998 panelOr dered By: Zoey Delaney on 02-04-2024 Anion gap [Moles/Vol] 11 mmol/L 3 - 13 mmol/L [facility] Calcium [Mass/Vol] 8.3 mg/dL Low 8.4 - 10. 2 mg/dL [facility] Chloride [Moles/Vol] 109 mmol/L High 98 - 10 7 mmol/L [facility] CO2 [Moles/Vol] 24 mmol/L 22 - 29 mmol/L [facility] Creatinine [Mass/Vol] 0.67 mg/dL Low 0.72 - 1.25 mg/dL [facility] GFR/1.73 sq M.predicted (S/P/Bld) [Vol rate/Area] - PINF [facility] Comment on above: Calculation based on the Chronic Kidney Disease Epidemiology Collaboration (CKD-EPI) equation refit without adjustment for race Glucose [Mass/Vol] 115 mg/dL High 74 - 100 mg/dL [facility] Interpretation and review of laboratory results Abnormal [facility] Potassium [Moles/Vol] 4.1 mmol/L 3.5 - 5.1 mmol/L [facility] Comment on above: Plasma potassium víctor ues may be up to 0.5 mmol/L lower than serum values. Sodium [Moles/Vol] 144 mmol/L 136 - 145 mmol/L [facility] Urea nitrogen [Mass/Vol] 4 mg/dL Low 8 - 21 mg/dL [facility] CBC W Auto Differential pane l (Bld)on 02-04-2024 Basophils (Bld) [#/Vol] 0.1 10*3/uL 0.0 - 0.2 10*3/uL [facility] Basophils/100 WBC (Bld) 1 % 0.0 - 2.0 % [facility] Eosinophils (Bld) [#/Vol] 0.1 10*3/uL 0.0 - 0.5 10*3/uL [facility] Eosinophils/100 WBC (Bld) 0.8 % 0.0 - 6.0 % [facility] Erythrocyte distribution width (RBC) [Ratio] 13.7 % 11.5 - 15.0 % [facility] Hematocrit (Bld) [Volume fraction] 43.7 % 40.0 - 52.0 % [facility] Hemoglobin (Bld) [Mass/Vol] 14.3 g/dL 13.0 - 18.0 g/dL [facility] Immature granulocytes (Bld) [#/Vol] 0 10*3/uL NINF - 0.1 10*3/uL [facility] Immature granulocytes/100 WBC (Bld) 0.2 % 0.0 - 2.0 % [facility] Interpretation and review of laboratory results Abnormal [facility] Lymphocytes (Bld) [#/Vol] 4.7 10*3/uL High 1.0 - 4.3 10*3/uL [facility] Lymphocytes/100 WBC (Bld) 54.6 % High 15.0 - 45.0 % [facility] MCH (RBC) [Entitic mass] 29.7 pg 26.0 - 34.0 pg [facility] MCHC (RBC) [Mass/Vol] 32.7 % 30.5 - 36.0 % [facility] MCV (RBC) [Entitic vol] 90.9 fL 77.0 - 99.0 fL [facility] Monocytes (Bld) [#/Vol] 0.6 10*3/uL 0.0 - 0.9 10*3/uL [facility] Monocytes/100 WBC (Bld) 6.4 % 5.0 - 13.0 % [facility] Neutrophils (Bld) [#/Vol] 3.2 10*3/uL 1.8 - 7.5 10*3/uL [facility] Neutrophils/100 WBC (Bld) 37 % Low 38.0 - 82.0 % [facility] Nucleated RBC/100 WBC (Bld) [Ratio] 0 % [facility] Platelet mean volume (Bld) [Entitic vol] 9.8 fL 9.0 - 12.7 fL [facility] Platelets (Bld) [#/Vol] 377 10*3/uL 140 - 440 10*3/uL [facility] RBC (Bld) [#/Vol] 4.81 10*6/uL 4.40 - 5.9 0 10*6/uL [facility] WBC (Bld) [#/Vol] 8.6 10*3/uL 3.6 - 10.7 10*3/uL [facility] CBC WITH AUTO DIFFERENTIALon 02-04-2024 Basophils (Bld) [#/Vol] 0.1 10*3/uL Normal 0.0-0.2 [facility] Comment on above: Performed By: #### L [id number] ####Lathe Turner: JUDITH MARKHAM ([id number])[facility])[address] [place] [address] Basophils/100 WBC (Bld) 1.0 % Normal 0.0-2.0 [facility] Comment on above: Performed By: #### L [id number] ####Lathe Turner: JUDITH MARKHAM ([id number])[facility])[address] [place] [address] Eosinophils (Bld) [#/Vol] 0.1 10*3/uL Normal 0.0-0.5 [facility] Comment on above: Performed By: #### L [id number] ####Lathe Turner: JUDITH MARKHAM ([id number])[facility])[address] [place] [address] Eosinophils/100 WBC (Bld) 0.8 % Normal 0.0-6.0 [facility] Comment on above: Performed By: #### L [id number] ####Lathe Turner: JUDITH MARKHAM ([id number])[facility])[address] [place] [address] Erythrocyte distribution width (RBC) [Ratio] 13.7 % Normal 11.5-15.0 [facility] Comment on above: Performed By: #### L [id number] ####Lathe Turner: JUDITH MARKHAM ([id number])[facility])[address] [place] [address] Hematocrit (Bld) [Volume fraction] 43.7 % Normal 40.0-52.0 [facility] Comment on above: Performed By: #### L [id number] ####Lathe Turner: JUDITH [id number])[facility])[address] [place] [address] Hemoglobin (Bld) [Mass/Vol] 14.3 g/dL Normal 13.0-18.0 [facility] Comment on above: Performed By: #### L [id number] ####Lathe Turner: JUDITH MARKHAM ([id number])[facility])[address] [place] [address] IMMATURE GRANS % 0.2 % Normal 0.0-2.0 [facility] Comment on above: Performed By: #### L [id number] ####Lathe Turner: JUDITH MARKHAM ([id number])[facility])[address] [place] [address] IMMATURE GRANS ABSOLUTE 0.0 10*3/uL Normal <0.1 [facility] Comment on above: Performed By: #### L [id number] ####Lathe Turner: JUDITH MARKHAM ([id number])[facility])[address] [place] [address] Lymphocytes (Bld) [#/Vol] 4.7 10*3/uL High 1.0-4.3 [facility] Comment on above: Performed By: #### L [id number] ####Lathe Turner: JUDITH MARKHAM ([id number])[facility])[address] [place] [address] Lymphocytes/100 WBC (Bld) 54.6 % High 15.0-45.0 [facility] Comment on above: Performed By: #### L [id number] ####Lathe Turner: JUDITH MARKHAM ([id number])[facility])[address] [place] [address] MCH (RBC) [Entitic mass] 29.7 pg Normal 26.0-34.0 [facility] Comment on above: Performed By: #### L [id number] ####Lathe Turner: JUDITH MARKHAM ([id number])[facility])[address] [place] [address] MCHC 32.7 % Normal 30.5-36.0 [facility] Comment on above: Performed By: #### L [id number] ####Lathe Turner: JUDITH MARKHAM ([id number])[facility])[address] [place] [address] MCV (RBC) [Entitic vol] 90.9 fL Normal 77.0-99.0 [facility] Comment on above: Performed By: #### L [id number] ####Lathe Turner: JUDITH MARKHAM ([id number])[facility])[address] [place] [address] Monocytes (Bld) [#/Vol] 0.6 10*3/uL Normal 0.0-0.9 [facility] Comment on above: Performed By: #### L [id number] ####Lathe Turner: JUDITH MARKHAM ([id number])[facility])[address] [place] [address] Monocytes/100 WBC (Bld) 6.4 % Normal 5.0-13.0 [facility] Comment on above: Performed By: #### L [id number] ####Lathe Turner: JUDITH MARKHAM ([id number])[facility])[address] [place] [address] NEUTROPHILS ABSOLUTE 3.2 10*3/uL Normal 1.8-7.5 [facility] Comment on above: Performed By: #### L [id number] ####Lathe Turner: JUDITH MARKHAM ([id number])[facility])[address] [place] [address] Neutrophils/100 WBC (Bld) 37.0 % Low 38.0-82.0 [facility] Comment on above: Performed By: #### L [id number] ####Lathe Turner: JUDITH MARKHAM ([id number])[facility])[address] [place] [address] NRBC 0.0 /100 WBCs Normal 0.0-2.0 [facility] Comment on above: Performed By: #### L [id number] ####Lathe Turner: JUDITH MARKHAM ([id number])[facility] ([facility])[address] [place] [address] Platelet mean volume (Bld) [Entitic vol] 9.8 fL Normal 9.0-12.7 [facility] Comment on above: Performed By: #### L [id number] ####Lathe Turner: JUDITH MARKHAM ([id number])[facility] ([facility])[address] [place] [address] Platelets (Bld) [#/Vol] 377 10*3/uL Normal 140-440 [facility] Comment on above: Performed By: #### L [id number] ####Lathe Turner: JUDITH MARKHAM ([id number])[facility] ([facility])[address] [place] [address] RBC (Bld) [#/Vol] 4.81 10*6/uL Normal 4.40-5.90 [facility] Comment on above: Performed By: #### L [id number] ####Lathe Turner: JUDITH MARKHAM ([id number])[facility] ([facility])[address] [place] [address] WBC (Bld) [#/Vol] 8.6 10*3/uL Normal 3.6-10.7 [facility] Comment on above: Performed By: #### L [id number] ####Lathe Turner: JUDITH MARKHAM ([id number])[facility] ([facility])[address] [place] [address] COMPREHENSIVE METABOLIC PANE Rylan 02-04-2024 Albumin [Mass/Vol] 4.1 g/dL Normal 3.5-5.0 [facility] Comment on above: Performed By: #### L AB17, LAB46 ####Lathe Turner: JUDITH MARKHAM ([id number])[facility])[address] [place] [address] ALP [Catalytic activity/Vol] 192 U/L High 40-150 [facility] Comment on above: Performed By: #### L AB17, LAB46 ####Lathe Turner: JUDITH MARKHAM ([id number])[facility] ([facility])[address] [place] [address] [place] ALT [Catalytic activity/Vol] 189 U/L High <40 [facility] Comment on above: Performed By: #### L AB17, LAB46 ####Lathe Turner: JUDITH MARKHAM ([id number])[facility] ([facility])[address] [place] [address] [place] Anion gap [Moles/Vol] 15 mmol/L High 3-13 [facility] Comment on above: Performed By: #### L AB17, LAB46 ####Lathe Turner: JUDITH MARKHAM ([id number])[facility] ([facility])[address] [place] [address] AST [Catalytic activity/Vol] 463 U/L High <34 [facility] Comment on above: Performed By: #### L AB17, LAB46 ####Lathe Turner: JUDITH MARKHAM ([id number])[facility] ([facility])[address] [place] [address] [place] Bilirubin [Mass/Vol] 0.5 mg/dL Normal <1.2 [facility] Comment on above: Performed By: #### L AB17, LAB46 ####Lathe Turner: JUDITH MARKHAM ([id number])[facility] ([facility])[address] [place] [address] Calcium [Mass/Vol] 8.9 mg/dL Normal 8.4-10.2 [facility] Comment on above: Performed By: #### L AB17, LAB46 ####Lathe Turner: JUDITH MARKHAM ([id number])[facility] ([facility])[address] [place] [address] [place] Chloride [Moles/Vol] 106 mmol/L Normal 98-107 [facility] Comment on above: Performed By: #### L AB17, LAB46 ####Lathe Turner: JUDITH MARKHAM ([id number])[facility] ([facility])[address] [place] [address] [place] CO2 [Moles/Vol] 20 mmol/L Low 22-29 [facility] Comment on above: Performed By: #### L AB17, LAB46 ####Lathe Turner: JUDITH MARKHAM ([id number])[facility])[address] [place] [address] Creatinine [Mass/Vol] 0.74 mg/dL Normal 0.72-1.25 [facility] Comment on above: Performed By: #### Iggy AB17, LAB46 ####Lathe Turner: JUDITH MARKHAM ([id number])[facility])[address] [place] [address] GLOMERULAR FILTRATION RATE ML/MIN/1.73 SQ M.PREDICTED >90.0 Normal >60.0 [facility] Comment on above: Result Comment: Calc ulation based on the Chronic Kidney Disease Epidemiology Collaboration (CKD-EPI) equation refit without adjustment for race Performed By: #### Iggy JOHNSON17, LAB46 ####Lathe Turner: JUDITH MARKHAM ([id number])[facility])[address] [place] [address] Glucose [Mass/Vol] 211 mg/dL High 74-100 [facility] Comment on above: Performed By: #### Iggy JOHNSON17, LAB46 ####Lathe Turner: JUDITH MARKHAM ([id number])[address] Potassium [Moles/Vol] 2.9 mmol/L Low 3.5-5.1 [facility] Comment on above: Result Comment: [facility] potassium values may be up to 0.5 mmol/L lower than serum values. Performed By: #### L AB17, LAB46 ####Lathe Turner: JUDITH MARKHAM ([id number])[facility])[address] [place] [address] Protein [Mass/Vol] 7.9 g/dL Normal 6.4-8.3 [facility] Comment on above: Performed By: #### L AB17, LAB46 ####Lathe Turner: JUDITH MARKHAM ([id number])[facility])[address] [place] [address] Sodium [Moles/Vol] 141 mmol/L Normal 136-145 [facility] Comment on above: Performed By: #### L AB17, LAB46 ####Lathe Turner: JUDITH MARKHAM ([id number])[facility] ([facility])[address] [place] [address] Urea nitrogen [Mass/Vol] 4 mg/dL Low 8-21 [facility] Comment on above: Performed By: #### L AB17, LAB46 ####Lathe Turner: JUDITH MARKHAM ([id number])[facility] ([facility])[address] [place] [address] Comprehensive metabolic 1998 panelon 02-04-2024 Albumin [Mass/Vol] 4.1 g/dL 3.5 - 5.0 g/dL [facility] ALP [Catalytic activity/Vol] 192 U/L High 40 - 150 U/L [facility] ALT [Catalytic activity/Vol] 189 U/L High NINF - 40 U/L [facility] Anion gap [Moles/Vol] 15 mmol/L High 3 - 13 mmol/L [facility] AST [Catalytic activity/Vol] 463 U/L [facility] Bilirubin [Mass/Vol] 0.5 mg/dL [facility] mg/dL [facility] Calcium [Mass/Vol] 8.9 mg/dL 8.4 - 10. 2 mg/dL [facility] Chloride [Moles/Vol] 106 mmol/L 98 - 10 7 mmol/L [facility] CO2 [Moles/Vol] 20 mmol/L Low 22 - 29 mmol/L [facility] Creatinine [Mass/Vol] 0.74 mg/dL 0.72 - 1.25 mg/dL [facility] GFR/1.73 sq M.predicted (S/P/Bld) [Vol rate/Area] - PINF [facility] Comment on above: Calculation based on the Chronic Kidney Disease Epidemiology Collaboration (CKD-EPI) equation refit without adjustment for race Glucose [Mass/Vol] 211 mg/dL High 74 - 100 mg/dL [facility] Interpretation and review of laboratory results Abnormal [facility] Potassium [Moles/Vol] 2.9 mmol/L Low 3.5 - 5.1 mmol/L [facility] Comment on above: Plasma potassium víctor ues may be up to 0.5 mmol/L lower than serum values. Protein [Mass/Vol] 7.9 g/dL 6.4 - 8.3 g/dL [facility] Sodium [Moles/Vol] 141 mmol/L 136 - 145 mmol/L [facility] Urea nitrogen [Mass/Vol] 4 mg/dL Low 8 - 21 mg/dL [facility] DRUGS OF ABUSEon 02-04-2024 AMPHETAMINE SCREEN Negative Normal [facility] Comment on above: Performed By: #### L [id number] ####Lathe Turner: JUDITH MARKHAM ([id number])[address] BARBITURATES SCREEN Negative Normal [facility] Comment on above: Performed By: #### L [id number] ####Lathe Turner: JUDITH MARKHAM ([id number])[address] BENZODIAZEPINE SCREEN Negative [facility] Comment on above: Performed By: #### L [id number] ####Lathe Turner: JUDITH MARKHAM ([id number])[address] COCAINE METAB. SCREEN Positive Normal [facility] Comment on above: Performed By: #### L [id number] ####Lathe Turner: JUDITH MARKHAM ([id number])[address] FENTANYL SCREEN, UR QUAL Negative Normal [facility] Comment on above: Result Comment: ORDE R COMMENTS:The expected value for all of the drugs listed above is Negative.The following drugs or drug groups have been screened for by Immunoassay at the following thresholds:Amphetamine class (1000 ng/mL)Barbiturates (200 ng/mL)Benzodiazepines (200 ng/mL)Cocaine (300 ng/mL)Methadone (300 ng/mL)Opiates (300 ng/mL)Oxycodone (100 ng/mL)PCP (25 ng/mL)Fentanyl (1.0 ng/ml)NOTE: These results are for medical treatment only. Analysis performed using non-forensic procedures. POSITIVE results are NOT confirmed by a more specificalternative method unless requested. If confirmation is needed, request confirmation under separate order. Performed By: #### L [id number] ####Lathe Turner: JUDITH MARKHAM ([id number])[facility])[address] [place] [address] METHADONE SCREEN Negative Normal [facility] Comment on above: Performed By: #### L [id number] ####Lathe Turner: JUDITH MARKHAM ([id number])[address] OPIATES SCREEN Negative Normal [facility] Comment on above: Performed By: #### L [id number] ####Lathe Turner: JUDITH MARKHAM ([id number])[address] OXYCODONE SCREEN Negative Normal [facility] Comment on above: Performed By: #### L [id number] ####Lathe Turner: JUDITH MARKHAM ([id number])[address] PHENCYCLIDINE SCREEN Negative Normal [facility] Comment on above: Performed By: #### L [id number] ####Lathe Turner: JUDITH MARKHAM ([id number])[address] ED Nursing Noteon 02-04-2024 ED Nursing Note Etoh detox admit. Responds to verbal. A/ox4. Report received from lunch covered nurse. Vss and updated. Oriented to call hooper. No distress. [facility] ED Nursing Note Report given to frederick canales RN [facility] ED Nursing Note Pt given warm blanket Normal [facility] ED Nursing Note Provider messaged on pt behalf requesting something for detox [facility] ED Nursing Note Pt able to give urin e sample in urinal at this time [facility] ED Nursing Note Pt refusing urinal. Deion santillan came into room to assist this RN with urine sample. Pt stating he can't urinate at this time. Normal [facility] ED Nursing Note Normal [facility] ED Provider Noteon ED Provider Note Normal [facility] ETHANOLon 02-04-2024 ETHANOL IN SER/PLAS 193 mg/dL High <10 [facility] Comment on above: Result Comment: ORDE R COMMENTS: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NOTE: This result is for medical treatment only. Analysis performed using non-forensic procedures. Performed By: #### L AB46, LAB15 ####Lathe Turner: JUDITH MARKHAM ([id number])[address] ETHANOL IN SER/PLAS 422 mg/dL Critically high <10 [facility] Comment on above: Result Comment: ORDE R COMMENTS: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NOTE: This result is for medical treatment only. Analysis performed using non-forensic procedures. Performed By: #### L AB17, LAB46 ####Lathe Turner: JUDITH MARKHAM ([id number])[facility])[address] [place] [address] Ethanol (Bld) [Mass/Vol]on 1 04-06-2023 Ethanol [Mass/Vol] 193 mg/dL High NINF - 10 mg/dL [facility] Interpretation and review of laboratory results Abnormal [facility] BAKERY DEMONSTRATOR depression is se en >100 mg/dL. NOTE: This result is for medical treatment only. Analysis performed using non-forensic procedures. [facility] Ethanol (Bld) [Mass/Vol]Orde red By: Manuel Dawson on 02-04-2024 Ethanol [Mass/Vol] 422 mg/dL Critically high NINF - 10 mg/dL [facility] Interpretation and review of laboratory results Abnormal [facility] BAKERY DEMONSTRATOR depression is se en >100 mg/dL. NOTE: This result is for medical treatment only. Analysis performed using non-forensic procedures. [facility] Laboratory - Chemistry and C hemistry - challengeon 02-04-2024 Base excess Calc (BldV) [Moles/Vol] -1.9000 mmol/L -3.0 - 3.0 mmol/L [facility] CO2 (BldV) [Partial pressure] 39.7 mm[Hg] Low [facility] CO2 [Moles/Vol] 24.2 mmol/L 24.0 - 28.0 mmol/L [facility] HCO3 (Bld) [Moles/Vol] 23 mmol/L 23.0 - 27.0 mmol/L [facility] Oxygen (BldV) [Partial pressure] 50.3 mm[Hg] mm Hg [facility] pH (BldV) 7.38 [pH] 7.330 - 7.430 [facility] - Chemistry and C hemistry - challengeOrdered By: Maddie Verdin on 02-04-2024 Base excess Calc (BldV) [Moles/Vol] -12 mmol/L Low -3.0 - 3.0 mmol/L [facility] CO2 (BldV) [Partial pressure] 42.7 mm[Hg] [facility] CO2 [Moles/Vol] 17.1 mmol/L Low 24.0 - 28.0 mmol/L [facility] HCO3 (Bld) [Moles/Vol] 15.8 mmol/L Low 23.0 - 27.0 mmol/L [facility] Oxygen (BldV) [Partial pressure] 131.7 mm[Hg] mm Hg [facility] pH (BldV) 7.185 [pH] Low 7.330 - 7.430 [facility] Laboratory - Drug toxicology on 02-04-2024 Amphetamines Screen method >1000 ng/mL Ql (U) Negative [facility] Barbiturates Screen method >200 ng/mL Ql (U) Negative [facility] Benzodiazepines Ql (U) Negative [facility] Methadone Screen Ql (U) Negative [facility] Opiates Screen Ql (U) Negative [facility] oxyCODONE Ql (U) Negative [facility] Phencyclidine Ql (U) Negative [facility] Laboratory - Hematology and Cell countson 02-04-2024 Hemoglobin (Bld) [Mass/Vol] 15 g/dL Screen only [facility] Laboratory - Hematology and Cell countsOrdered By: Maddie Verdin on 02-04-2024 Hemoglobin (Bld) [Mass/Vol] 13.5 g/dL Screen only [facility] Laboratory - Microbiology an d Antimicrobial susceptibilityOrdered By: Hermelinda Shukla on 02-04-2024 SARS-CoV-2 (COVID-19) Ag IA.rapid Ql (Resp) Negative Negative [facility] Comment on above: A negative result do es not rule out the possibility of SARS-CoV-2 infection. NAAT-based methods should be considered for symptomatic patients presenting greater than seven days after onset of symptoms. Method: Lateral flow immunoassay. Fact sheets for healthcare providers and patients can be found at the following sites: https://www.fda.gov/media/404267/download https://www.fda.gov/media/519735/download No Panel Informationon 02-03 Interpretation and review of laboratory results Abnormal [facility] Source Of Oxygen Room Air [facility] Assessment of oxygenation is best done with an arterial blood gas determination. Reference ranges for pO2, bicarbonate, and base excess are for mixed venous blood. Specimens drawn from a peripheral vein will often have higher values. [facility] COCAINE METAB. SCREEN Positive [facility] FENTANYL SCREEN, UR QUAL Negative [facility] The expected value f or all of the drugs listed above is Negative. The following drugs or drug groups have been screened for by Immunoassay at the following thresholds: Amphetamine class (1000 ng/mL) Barbiturates (200 ng/mL) Benzodiazepines (200 ng/mL) Cocaine (300 ng/mL) Methadone (300 ng/mL) Opiates (300 ng/mL) Oxycodone (100 ng/mL) PCP (25 ng/mL) Fentanyl (1.0 ng/ml) NOTE: These results are for medical treatment only. Analysis performed using non-forensic procedures. POSITIVE results are NOT confirmed by a more specific alternative method unless requested. If confirmation is needed, request confirmation under separate order. [facility] No Panel InformationOrdered By: Maddie Verdin on 02-04-2024 Interpretation and review of laboratory results Abnormal [facility] Source Of Oxygen Room Air [facility] Assessment of oxygenation is best done with an arterial blood gas determination. Reference ranges for pO2, bicarbonate, and base excess are for mixed venous blood. Specimens drawn from a peripheral vein will often have higher values. [facility] SARS-COV-2 ANTIGENon 024 SARS-COV-2 ANTIGEN Normal [facility] Comment on above: Performed By: #### L [id number] ####Lathe Turner: JUDITH MARKHAM ([id number])[facility])[address] [place] [address] SARS-CoV-2 (COVID-19) Ag IA. rapid Ql (Resp)Ordered By: Hermelinda Shukla on 02-04-2024 Interpretation and review of laboratory results Normal [facility] Vital signson 02-04-2024 Oxygen saturation in Venous blood 76.9 % [facility] Vital signsOrdered By: Noe Verdin on 02-04-2024 Oxygen saturation in Venous blood 97.4 % [facility] 36on 01-29-2024 36 Called for post discharge follow up, no answer, voicemail left. Normal [facility] 30on 01-26-2024 30 Normal [facility] BASIC METABOLIC PANELon 01-09 Anion gap [Moles/Vol] 7 mmol/L Normal 3-13 [facility] Comment on above: Performed By: #### L AB20, LAB15 ####Lathe Turner: JUDITH MARKHAM ([id number])[facility])[address] [place] [address] Calcium [Mass/Vol] 9.4 mg/dL Normal 8.4-10.2 [facility] Comment on above: Performed By: #### L AB20, LAB15 ####Lathe Turner: JUDITH MARKHAM ([id number])[facility])[address] [place] [address] [place] Chloride [Moles/Vol] 106 mmol/L Normal 98-107 [facility] Comment on above: Performed By: #### L AB20, LAB15 ####Lathe Turner: JUDITH MARKHAM ([id number])[facility])[address] [place] [address] [place] CO2 [Moles/Vol] 25 mmol/L Normal 22-29 [facility] Comment on above: Performed By: #### L AB20, LAB15 ####Lathe Turner: JUDITH MARKHAM ([id number])[facility])[address] [place] [address] Creatinine [Mass/Vol] 0.64 mg/dL Low 0.72-1.25 [facility] Comment on above: Performed By: #### L AB20, LAB15 ####Lathe Turner: JUDITH MARKHAM ([id number])[facility])[address] [place] [address] GLOMERULAR FILTRATION RATE ML/MIN/1.73 SQ M.PREDICTED >90.0 Normal >60.0 [facility] Comment on above: Result Comment: Calc ulation based on the Chronic Kidney Disease Epidemiology Collaboration (CKD-EPI) equation refit without adjustment for race Performed By: #### L AB20, LAB15 ####Lathe Turner: JUDITH MARKHAM ([id number])[facility])[address] [place] [address] Glucose [Mass/Vol] 98 mg/dL Normal 74-100 [facility] Comment on above: Performed By: #### L AB20, LAB15 ####Lathe Turner: JUDITH MARKHAM ([id number])[facility])[address] [place] [address] Potassium [Moles/Vol] 3.7 mmol/L Normal 3.5-5.1 [facility] Comment on above: Result Comment: [facility] potassium values may be up to 0.5 mmol/L lower than serum values. Performed By: #### L AB20, LAB15 ####Lathe Turner: JUDITH MARKHAM ([id number])[facility])[address] [place] [address] [place] Sodium [Moles/Vol] 138 mmol/L Normal 136-145 [facility] Comment on above: Performed By: #### L AB20, LAB15 ####Lathe Turner: JUDITH MARKHAM ([id number])[facility])[address] [place] [address] [place] Urea nitrogen [Mass/Vol] 3 mg/dL Low 8-21 [facility] Comment on above: Performed By: #### L AB20, LAB15 ####Lathe Turner: JUDITH MARKHAM ([id number])[facility])[address] [place] [address] Basic metabolic 1998 panelon 01-26-2024 Anion gap [Moles/Vol] 7 mmol/L 3 - 13 mmol/L [facility] Calcium [Mass/Vol] 9.4 mg/dL 8.4 - 10. 2 mg/dL [facility] Chloride [Moles/Vol] 106 mmol/L 98 - 10 7 mmol/L [facility] CO2 [Moles/Vol] 25 mmol/L 22 - 29 mmol/L [facility] Creatinine [Mass/Vol] 0.64 mg/dL Low 0.72 - 1.25 mg/dL [facility] GFR/1.73 sq M.predicted (S/P/Bld) [Vol rate/Area] - PINF [facility] Comment on above: Calculation based on the Chronic Kidney Disease Epidemiology Collaboration (CKD-EPI) equation refit without adjustment for race Glucose [Mass/Vol] 98 mg/dL 74 - 100 mg/dL [facility] Potassium [Moles/Vol] 3.7 mmol/L 3.5 - 5.1 mmol/L [facility] Comment on above: Plasma potassium víctor ues may be up to 0.5 mmol/L lower than serum values. Sodium [Moles/Vol] 138 mmol/L 136 - 145 mmol/L [facility] Urea nitrogen [Mass/Vol] 3 mg/dL Low 8 - 21 mg/dL [facility] HEPATIC FUNCTION PANELon Albumin [Mass/Vol] 3.6 g/dL Normal 3.5-5.0 [facility] Comment on above: Performed By: #### L AB20, LAB15 ####Lathe Turner: JUDITH MARKHAM ([id number])[facility])[address] [place] [address] ALP [Catalytic activity/Vol] 129 U/L Normal 40-150 [facility] Comment on above: Performed By: #### L AB20, LAB15 ####Lathe Turner: JUDITH MARKHAM ([id number])[facility])[address] [place] [address] ALT [Catalytic activity/Vol] 70 U/L High <40 [facility] Comment on above: Performed By: #### L AB20, LAB15 ####Lathe Turner: JUDITH MARKHAM ([id number])[facility])[address] [place] [address] AST [Catalytic activity/Vol] 94 U/L High <34 [facility] Comment on above: Performed By: #### L AB20, LAB15 ####Lathe Turner: JUDITH MARKHAM ([id number])[facility])[address] [place] [address] Bilirubin [Mass/Vol] 1.0 mg/dL Normal <1.2 [facility] Comment on above: Performed By: #### L AB20, LAB15 ####Lathe Turner: JUDITH MARKHAM ([id number])[address] Bilirubin.indirect [Mass/Vol] 0.6 mg/dL High <0.5 [facility] Comment on above: Performed By: #### L AB20, LAB15 ####Lathe Turner: JUDITH MARKHAM ([id number])[facility])[address] [place] [address] Protein [Mass/Vol] 7.0 g/dL Normal 6.4-8.3 [facility] Comment on above: Result Comment: Seru m protein values are higher than plasma values. Samples from recumbent persons are lower by up to 0.5 g/dL as compared to ambulatory persons. After 60 years values are lower by up to 0.2 g/dL. Performed By: #### L AB20, LAB15 ####Lathe Turner: JUDITH MARKHAM ([id number])[facility])[address] [place] [address] Hepatic function 2000 panelo n 01-26-2024 Albumin [Mass/Vol] 3.6 g/dL 3.5 - 5.0 g/dL [facility] ALP [Catalytic activity/Vol] 129 U/L 40 - 150 U/L [facility] ALT [Catalytic activity/Vol] 70 U/L High NINF - 40 U/L [facility] AST [Catalytic activity/Vol] 94 U/L High NINF - 34 U/L [facility] Bilirubin [Mass/Vol] 1 mg/dL [facility] - 1.2 mg/dL [facility] Bilirubin.conjugated [Mass/Vol] 0.6 mg/dL High NINF - 0.5 mg/dL [facility] Protein [Mass/Vol] 7 g/dL 6.4 - 8.3 g/dL [facility] Comment on above: Serum protein values are higher than plasma values. Samples from recumbent persons are lower by up to 0.5 g/dL as compared to ambulatory persons. After 60 years values are lower by up to 0.2 g/dL. No Panel Informationon 01-25 Interpretation and review of laboratory results Abnormal [facility] Nursing Noteon 01-26-2024 Nursing Note Patient verbalized understanding of all discharge instructions including medications, follow up appointments, s&s of infection, and when to call the physician. Normal [facility] Progress Noteon 01-26-2024 Progress Note Normal [facility] 30on 01-25-2024 30 Normal [facility] Progress Noteon 01-25-2024 Progress Note Normal [facility] 30on 01-24-2024 30 Normal [facility] 30 Normal [facility] Progress Noteon 01-24-2024 Progress Note Normal [facility] 30on 01-23-2024 30 Normal [facility] Progress Noteon 01-23-2024 Progress Note Normal [facility] 30on 01-22-2024 30 Normal [facility] 30 Normal [facility] [id number] 01-22-2024 [id number] Normal [facility] Nursing Noteon 01-22-2024 Nursing Note Normal [facility] Progress Noteon 01-22-2024 Progress Note Normal [facility] Progress Note Nutrition rescreen completed. Chart reviewed. Patient to be monitored and followed by the diet copier field service technician. Dietitian available upon request. RALPH Chun Normal [facility] Progress Note Normal [facility] 30on 01-21-2024 30 Normal [facility] 30 Normal [facility] BASIC METABOLIC PANELon 01-09 Anion gap [Moles/Vol] 11 mmol/L Normal -13 [facility] Comment on above: Performed By: #### L AB20, LAB46, LAB15 ####Lathe Turner: JUDITH MARKHAM ([id number])[facility])[address] [place] [address] Calcium [Mass/Vol] 9.0 mg/dL Normal 8.4-10.2 [facility] Comment on above: Performed By: #### L AB20, LAB46, LAB15 ####Lathe Turner: JUDITH MARKHAM ([id number])[facility])[address] [place] [address] Chloride [Moles/Vol] 106 mmol/L Normal 98-107 [facility] Comment on above: Performed By: #### L AB20, LAB46, LAB15 ####Lathe Turner: JUDITH MARKHAM ([id number])[facility])[address] [place] [address] CO2 [Moles/Vol] 23 mmol/L Normal 22-29 [facility] Comment on above: Performed By: #### L AB20, LAB46, LAB15 ####Lathe Turner: JUDITH MARKHAM ([id number])[facility])[address] [place] [address] Creatinine [Mass/Vol] 0.74 mg/dL Normal 0.72-1.25 [facility] Comment on above: Performed By: #### L AB20, LAB46, LAB15 ####Lathe Turner: JUDITH MARKHAM ([id number])[facility])[address] [place] [address] GLOMERULAR FILTRATION RATE ML/MIN/1.73 SQ M.PREDICTED >90.0 Normal >60.0 [facility] Comment on above: Result Comment: Calc ulation based on the Chronic Kidney Disease Epidemiology Collaboration (CKD-EPI) equation refit without adjustment for race Performed By: #### L AB20, LAB46, LAB15 ####Lathe Turner: JUDITH MARKHAM ([id number])[facility])[address] [place] [address] Glucose [Mass/Vol] 115 mg/dL High 74-100 [facility] Comment on above: Performed By: #### L AB20, LAB46, LAB15 ####Lathe Turner: JUDITH MARKHAM ([id number])[facility])[address] [place] [address] Potassium [Moles/Vol] 3.8 mmol/L Normal 3.5-5.1 [facility] Comment on above: Result Comment: [facility] potassium values may be up to 0.5 mmol/L lower than serum values. Performed By: #### L AB20, LAB46, LAB15 ####Lathe Turner: JUDITH MARKHAM ([id number])[facility])[address] [place] [address] Sodium [Moles/Vol] 140 mmol/L Normal 136-145 [facility] Comment on above: Performed By: #### L AB20, LAB46, LAB15 ####Lathe Turner: JUDITH MARKHAM ([id number])[facility])[address] [place] [address] Urea nitrogen [Mass/Vol] 4 mg/dL Low 8-21 [facility] Comment on above: Performed By: #### L AB20, LAB46, LAB15 ####Lathe Turner: JUDITH MARKHAM ([id number])[address] Basic metabolic 1998 panelon 01-21-2024 Anion gap [Moles/Vol] 11 mmol/L 3 - 13 mmol/L [facility] Calcium [Mass/Vol] 9 mg/dL 8.4 - 10. 2 mg/dL [facility] Chloride [Moles/Vol] 106 mmol/L 98 - 10 7 mmol/L [facility] CO2 [Moles/Vol] 23 mmol/L 22 - 29 mmol/L [facility] Creatinine [Mass/Vol] 0.74 mg/dL 0.72 - 1.25 mg/dL [facility] GFR/1.73 sq M.predicted (S/P/Bld) [Vol rate/Area] - PINF [facility] Comment on above: Calculation based on the Chronic Kidney Disease Epidemiology Collaboration (CKD-EPI) equation refit without adjustment for race Glucose [Mass/Vol] 115 mg/dL High 74 - 100 mg/dL [facility] Potassium [Moles/Vol] 3.8 mmol/L 3.5 - 5.1 mmol/L [facility] Comment on above: Plasma potassium víctor ues may be up to 0.5 mmol/L lower than serum values. Sodium [Moles/Vol] 140 mmol/L 136 - 145 mmol/L [facility] Urea nitrogen [Mass/Vol] 4 mg/dL Low 8 - 21 mg/dL [facility] CBC W Auto Differential pane l (Bld)on 01-21-2024 Basophils (Bld) [#/Vol] 0.1 10*3/uL 0.0 - 0.2 10*3/uL [facility] Basophils/100 WBC (Bld) 0.5 % 0.0 - 2.0 % [facility] Eosinophils (Bld) [#/Vol] 0 10*3/uL 0.0 - 0.5 10*3/uL [facility] Eosinophils/100 WBC (Bld) 0.1 % 0.0 - 6.0 % [facility] Erythrocyte distribution width (RBC) [Ratio] 13.8 % 11.5 - 15.0 % [facility] Hematocrit (Bld) [Volume fraction] 44.1 % 40.0 - 52.0 % [facility] Hemoglobin (Bld) [Mass/Vol] 14.5 g/dL 13.0 - 18.0 g/dL [facility] Immature granulocytes (Bld) [#/Vol] 0 10*3/uL NINF - 0.1 10*3/uL [facility] Immature granulocytes/100 WBC (Bld) 0.1 % 0.0 - 2.0 % [facility] Interpretation and review of laboratory results Normal [facility] Lymphocytes (Bld) [#/Vol] 2.7 10*3/uL 1.0 - 4.3 10*3/uL [facility] Lymphocytes/100 WBC (Bld) 29.4 % 15.0 - 45.0 % [facility] MCH (RBC) [Entitic mass] 30 pg 26.0 - 34.0 pg [facility] MCHC (RBC) [Mass/Vol] 32.9 % 30.5 - 36.0 % [facility] MCV (RBC) [Entitic vol] 91.1 fL 77.0 - 99.0 fL [facility] Monocytes (Bld) [#/Vol] 0.6 10*3/uL 0.0 - 0.9 10*3/uL [facility] Monocytes/100 WBC (Bld) 6 % 5.0 - 13.0 % [facility] Neutrophils (Bld) [#/Vol] 5.9 10*3/uL 1.8 - 7.5 10*3/uL [facility] Neutrophils/100 WBC (Bld) 63.9 % 38.0 - 82.0 % [facility] Nucleated RBC/100 WBC (Bld) [Ratio] 0 % [facility] Platelet mean volume (Bld) [Entitic vol] 10 fL 9.0 - 12.7 fL [facility] Platelets (Bld) [#/Vol] 249 10*3/uL 140 - 440 10*3/uL [facility] RBC (Bld) [#/Vol] 4.84 10*6/uL 4.40 - 5.9 0 10*6/uL [facility] WBC (Bld) [#/Vol] 9.3 10*3/uL 3.6 - 10.7 10*3/uL [facility] CBC WITH AUTO DIFFERENTIALon 01-21-2024 Basophils (Bld) [#/Vol] 0.1 10*3/uL Normal 0.0-0.2 [facility] Comment on above: Performed By: #### L [id number] ####Lathe Turner: JUDITH MARKHAM ([id number])[address] Basophils/100 WBC (Bld) 0.5 % Normal 0.0-2.0 [facility] Comment on above: Performed By: #### L [id number] ####Lathe Turner: JUDITH [id number])[facility])[address] [place] [address] Eosinophils (Bld) [#/Vol] 0.0 10*3/uL Normal 0.0-0.5 [facility] Comment on above: Performed By: #### L [id number] ####Lathe Turner: JUDITH [id number])[facility] [address] Eosinophils/100 WBC (Bld) 0.1 % Normal 0.0-6.0 [facility] Comment on above: Performed By: #### L [id number] ####Lathe Turner: JUDITH MARKHAM ([id number])[facility])[address] [place] [address] Erythrocyte distribution width (RBC) [Ratio] 13.8 % Normal 11.5-15.0 [facility] Comment on above: Performed By: #### L [id number] ####Lathe Turner: JUDITH MARKHAM ([id number])[address] Hematocrit (Bld) [Volume fraction] 44.1 % Normal 40.0-52.0 [facility] Comment on above: Performed By: #### L [id number] ####Lathe Turner: JUDITH MARKHAM ([id number])[address] Hemoglobin (Bld) [Mass/Vol] 14.5 g/dL Normal 13.0-18.0 [facility] Comment on above: Performed By: #### L [id number] ####Lathe Turner: JUDITH MARKHAM ([id number])[address] IMMATURE GRANS % 0.1 % Normal 0.0-2.0 [facility] Comment on above: Performed By: #### L [id number] ####Lathe Turner: JUDITH MARKHAM ([id number])[facility])[address] [place] [address] IMMATURE GRANS ABSOLUTE 0.0 10*3/uL Normal <0.1 [facility] Comment on above: Performed By: #### L [id number] ####Lathe Turner: JUDITH MARKHAM ([id number])[facility])[address] [place] [address] Lymphocytes (Bld) [#/Vol] 2.7 10*3/uL Normal 1.0-4.3 [facility] Comment on above: Performed By: #### L [id number] ####Lathe Turner: JUDITH MARKHAM ([id number])[facility])[address] [place] [address] Lymphocytes/100 WBC (Bld) 29.4 % Normal 15.0-45.0 [facility] Comment on above: Performed By: #### L [id number] ####Lathe Turner: JUDITH MARKHAM ([id number])[facility])[address] [place] [address] MCH (RBC) [Entitic mass] 30.0 pg Normal 26.0-34.0 [facility] Comment on above: Performed By: #### L [id number] ####Lathe Turner: JUDITH MARKHAM ([id number])[facility])[address] [place] [address] MCHC 32.9 % Normal 30.5-36.0 [facility] Comment on above: Performed By: #### L [id number] ####Lathe Turner: JUDITH MARKHAM ([id number])[facility])[address] [place] [address] MCV (RBC) [Entitic vol] 91.1 fL Normal 77.0-99.0 [facility] Comment on above: Performed By: #### L [id number] ####Lathe Turner: JUDITH MARKHAM ([id number])[facility])[address] [place] [address] Monocytes (Bld) [#/Vol] 0.6 10*3/uL Normal 0.0-0.9 [facility] Comment on above: Performed By: #### L [id number] ####Lathe Turner: JUDITH MARKHAM ([id number])[facility])[address] [place] [address] Monocytes/100 WBC (Bld) 6.0 % Normal 5.0-13.0 [facility] Comment on above: Performed By: #### L [id number] ####Lathe Turner: JUDITH MARKHAM ([id number])[facility])[address] [place] [address] NEUTROPHILS ABSOLUTE 5.9 10*3/uL Normal 1.8-7.5 [facility] Comment on above: Performed By: #### L [id number] ####Lathe Turner: JUDITH MARKHAM ([id number])[facility])[address] [place] [address] Neutrophils/100 WBC (Bld) 63.9 % Normal 38.0-82.0 [facility] Comment on above: Performed By: #### L [id number] ####Lathe Turner: JUDITH MARKHAM ([id number])[facility])[address] [place] [address] NRBC 0.0 /100 WBCs Normal 0.0-2.0 [facility] Comment on above: Performed By: #### L [id number] ####Lathe Turner: JUDITH MARKHAM ([id number])[facility])[address] [place] [address] Platelet mean volume (Bld) [Entitic vol] 10.0 fL Normal 9.0-12.7 [facility] Comment on above: Performed By: #### L [id number] ####Lathe Turner: JUDITH MARKHAM ([id number])[facility] ([facility])[address] [place] [address] [place] Platelets (Bld) [#/Vol] 249 10*3/uL Normal 140-440 [facility] Comment on above: Performed By: #### L [id number] ####Lathe Turner: JUDITH MARKHAM ([id number])[facility])[address] [place] [address] [place] RBC (Bld) [#/Vol] 4.84 10*6/uL Normal 4.40-5.90 [facility] Comment on above: Performed By: #### L [id number] ####Lathe Turner: JUDITH MARKHAM ([id number])[facility] ([facility])[address] WBC (Bld) [#/Vol] 9.3 10*3/uL Normal 3.6-10.7 [facility] Comment on above: Performed By: #### L [id number] ####Lathe Turner: JUDITH MARKHAM ([id number])[facility] ([facility])[address] [place] [address] Consulton 01-21-2024 Consult Normal [facility] ETHANOLon 01-21-2024 ETHANOL IN SER/PLAS <10 Normal <10 [facility] Comment on above: Result Comment: This sample may have been collected by using an alcohol pad to swab the skin. Ethanol-containing antiseptics before venipuncture may not be causes of spurious or false positive results of alcohol measurement at least when ideal venipunctures can be performed. However, under non-ideal collection conditions, alcohol contamination is a possibility. Results to be correlated clinically.ORDER COMMENTS: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NOTE: This result is for medical treatment only. Analysis performed using non-forensic procedures. Performed By: #### L AB20, LAB46, LAB15 ####Lathe Turner: JUDITH MARKHAM ([id number])[facility])[address] [place] [address] ETHYL GLUCURONIDE SCREEN, UR INEon 01-21-2024 ETHYL GLUCURONIDE, URINE Positive Normal Negative [facility] Comment on above: Result Comment: ORDE R COMMENTS:IF able, use existing specimenEthyl Glucuronide has been screened by Immunoassay at a 500 ng/mL threshold. POSITIVE results are not confirmed by a more specific alternative method unless requested. If confirmation is needed, request confirmation under separate order.NOTE: These results are for medical treatment only. Analysis performed using non-forensic procedures.This test has not been cleared by the [place] Food and Drug Administration (FDA). The FDA has determined that such clearance or approval is not necessary. The performance characteristics have been determined by the clinical laboratories of [facility]. Performed By: #### L [id number], [id number] ####Lathe Turner: JUDITH MARKHAM ([id number])[facility] ([facility])[address] [place] [address] Ethanol (Bld) [Mass/Vol]on 1 03-23-2023 Ethanol [Mass/Vol] mg/dL NINF - 10 mg/dL [facility] Comment on above: This sample may have been collected by using an alcohol pad to swab the skin. Ethanol-containing antiseptics before venipuncture may not be causes of spurious or false positive results of alcohol measurement at least when ideal venipunctures can be performed. However, under non-ideal collection conditions, alcohol contamination is a possibility. Results to be correlated clinically. Interpretation and review of laboratory results Normal [facility] BAKERY DEMONSTRATOR depression is se en >100 mg/dL. NOTE: This result is for medical treatment only. Analysis performed using non-forensic procedures. [facility] HEPATIC FUNCTION PANELon Albumin [Mass/Vol] 4.0 g/dL Normal 3.5-5.0 [facility] Comment on above: Performed By: #### L AB20, LAB46, LAB15 ####Lathe Turner: JUDITH MARKHAM ([id number])[facility])[address] [place] [address] ALP [Catalytic activity/Vol] 193 U/L High 40-150 [facility] Comment on above: Performed By: #### L AB20, LAB46, LAB15 ####Lathe Turner: JUDITH MARKHAM ([id number])[facility])[address] [place] [address] ALT [Catalytic activity/Vol] 157 U/L High <40 [facility] Comment on above: Performed By: #### L AB20, LAB46, LAB15 ####Lathe Turner: JUDITH MARKHAM ([id number])[facility])[address] [place] [address] AST [Catalytic activity/Vol] 163 U/L High <34 [facility] Comment on above: Performed By: #### L AB20, LAB46, LAB15 ####Lathe Turner: JUDITH MARKHAM ([id number])[facility])[address] [place] [address] Bilirubin [Mass/Vol] 0.9 mg/dL Normal <1.2 [facility] Comment on above: Performed By: #### L AB20, LAB46, LAB15 ####Lathe Turner: JUDITH MARKHAM ([id number])[address] Bilirubin.indirect [Mass/Vol] 0.4 mg/dL Normal <0.5 [facility] Comment on above: Performed By: #### L AB20, LAB46, LAB15 ####Lathe Turner: JUDITH MARKHAM ([id number])[facility])[address] [place] [address] Protein [Mass/Vol] 7.9 g/dL Normal 6.4-8.3 [facility] Comment on above: Result Comment: Seru m protein values are higher than plasma values. Samples from recumbent persons are lower by up to 0.5 g/dL as compared to ambulatory persons. After 60 years values are lower by up to 0.2 g/dL. Performed By: #### L AB20, LAB46, LAB15 ####Lathe Turner: JUDITH MARKHAM ([id number])[facility])[address] [place] [address] Hepatic function 2000 panelo n 01-21-2024 Albumin [Mass/Vol] 4 g/dL 3.5 - 5.0 g/dL [facility] ALP [Catalytic activity/Vol] 193 U/L High 40 - 150 U/L [facility] ALT [Catalytic activity/Vol] 157 U/L High NINF - 40 U/L [facility] AST [Catalytic activity/Vol] 163 U/L High NINF - 34 U/L [facility] Bilirubin [Mass/Vol] 0.9 [facility] Bilirubin.conjugated [Mass/Vol] 0.4 mg/dL [facility] mg/dL [facility] Protein [Mass/Vol] 7.9 g/dL 6.4 - 8.3 g/dL [facility] Comment on above: Serum protein values are higher than plasma values. Samples from recumbent persons are lower by up to 0.5 g/dL as compared to ambulatory persons. After 60 years values are lower by up to 0.2 g/dL. Laboratory - Coagulationon 1 03-23-2023 aPTT Coag (PPP) [Time] 25.7 s 20.0 - 30.5 s [facility] INR Coag (PPP) [Relative time] 1.1 {INR} 0.9 - 1.1 [facility] Comment on above: Recommended Anticoag ulant Therapy: SEE BELOW ----- INR of 2.0 - 3.0 : - Prophylaxis of Venous Thrombosis (high-risk surgery) - Treatment of Venous Thrombosis - Treatment of Pulmonary Embolism (Includes tissue heart valves, Acute Myocardial Infarction to prevent systemic embolism, Valvular Heart Disease, and Atrial Fibrillation) ----- INR of 2.5 - 3.5 : - Mechanical Prosthetic Valves (high risk) - If oral anticoagulant therapy is used to prevent Myocardial Infarction PT Coag (Bld) [Time] 12.4 s High 9.0 - 12.0 s [facility] Laboratory - Drug toxicology Ordered By: Chelsey Anderson on 01-21-2024 Amphetamines Ql (U) Negative Negative [facility] Barbiturates screen method Nom (U) Positive Negative [facility] Benzodiazepines screen method Nom (U) Negative Negative [facility] Cocaine Ql (U) Negative Negative [facility] Ethanol [Mass/Vol] Negative Negative [facility] Methadone Ql (U) Negative Negative [facility] Opiates Screen Ql (U) Positive Negative [facility] MEDICATION ASSISTED TREATMEN T PANELon 01-21-2024 Amphetamines Ql (U) Negative Normal Negative [facility] Comment on above: Performed By: #### L [id number], [id number] ####Lathe Turner: JUDITH MARKHAM ([id number])[facility])[address] [place] [address] BARBITURATES Positive Normal Negative [facility] Comment on above: Performed By: #### L [id number], [id number] ####Lathe Turner: JUDITH MARKHAM ([id number])[facility])[address] [place] [address] Benzodiazepines Ql (U) Negative Normal Negative [facility] Comment on above: Performed By: #### L [id number], [id number] ####Lathe Turner: JUDITH MARKHAM ([id number])[facility] ([facility])[address] BUPRENORPHINE SCREEN Negative Normal Negative [facility] Comment on above: Performed By: #### L [id number], [id number] ####Lathe Turner: JUDITH MARKHAM ([id number])[facility] ([facility])[address] [place] [address] Cocaine Ql (U) Negative Normal Negative [facility] Comment on above: Performed By: #### L [id number], [id number] ####Lathe Turner: JUDITH MARKHAM ([id number])[facility] ([facility])[address] [place] [address] ETHANOL-ETOHO Negative Normal Negative [facility] Comment on above: Result Comment: ORDE R COMMENTS:The expected value for the drugs listed above is Negative.The following drugs or drug groups have been screened for by Immunoassay at the following thresholds:Amphetamine class(1000ng/mL)Barbituates(200ng/mL)Benzodiazepines(200ng/mL) Cocaine(300ng/mL)Ethanol (50 ng/mL)Methadone(300ng/mL)Opiates(300ng/mL)Oxycodone(100ng/mL)P CP(25ng/mL)Buprenorphine(5ng/mL)THC(50ng/mL)Fentanyl(1ng/mL)Po sitive results are NOT confirmed by a more specific alternative method unless requested. If confirmation is needed, request confirmation under separate order.NOTE: These results are for medical treatment only. Analysis performed using non-forensic procedures. Performed By: #### L [id number], [id number] ####Lathe Turner: JUDITH MARKHAM ([id number])[facility] ([facility])[address] [place] [address] FENTANYL Negative Normal Negative [facility] Comment on above: Performed By: #### L [id number], [id number] ####Lathe Turner: JUDITH MARKHAM ([id number])[facility] ([facility])[address] [place] [address] Methadone Ql (U) Negative Normal Negative [facility] Comment on above: Performed By: #### L [id number], [id number] ####Lathe Turner: JUDITH MARKHAM ([id number])[facility])[address] [place] [address] Opiates Ql (U) Positive Normal Negative [facility] Comment on above: Performed By: #### L [id number], [id number] ####Lathe Turner: JUDITH MARKHAM ([id number])[facility])[address] [place] [address] OXYCODONE/OXYMORPHONE Negative Normal Negative [facility] Comment on above: Performed By: #### L [id number], [id number] ####Lathe Turner: JUDITH MARKHAM ([id number])[facility])[address] [place] [address] PCP Negative Normal Negative [facility] Comment on above: Performed By: #### L [id number], [id number] ####Lathe Turner: JUDITH MARKHAM ([id number])[facility] ([facility])[address] [place] [address] THC-MTTHC Negative Normal Negative [facility] Comment on above: Performed By: #### L [id number], [id number] ####Lathe Turner: JUDITH MARKHAM ([id number])[facility])[address] [place] [address] No Panel InformationOrdered By: Chelsey Anderson on 01-21-2024 BUPRENORPHINE SCREEN Negative Negative [facility] FENTANYL Negative Negative [facility] OXYCODONE/OXYMORPHONE Negative Negative [facility] PCP Negative Negative [facility] THC Negative Negative [facility] The expected value f or the drugs listed above is Negative. The following drugs or drug groups have been screened for by Immunoassay at the following thresholds: Amphetamine class(1000ng/mL) Barbituates(200ng/mL) Benzodiazepines(200ng/m L) Cocaine(300ng/mL) Ethanol (50 ng/mL) Methadone(300ng/mL) Opiates(300ng/mL) Oxycodone(100ng/mL) PCP(25ng/mL) Buprenorphine(5ng/mL) THC(50ng/mL) Fentanyl(1ng/mL) Positive results are NOT confirmed by a more specific alternative method unless requested. If confirmation is needed, request confirmation under separate order. NOTE: These results are for medical treatment only. Analysis performed using non-forensic procedures. [facility] No Panel InformationOrdered By: Sarita Espino on 01-21-2024 ETHYL GLUCURONIDE, URINE Positive Negative [facility] Ethyl Glucuronide castillo s been screened by Immunoassay at a 500 ng/mL threshold. POSITIVE results are not confirmed by a more specific alternative method unless requested. If confirmation is needed, request confirmation under separate order. NOTE: These results are for medical treatment only. Analysis performed using non-forensic procedures. This test has not been cleared by the [place] Food and Drug Administration (FDA). The FDA has determined that such clearance or approval is not necessary. The performance characteristics have been determined by the clinical laboratories of [facility]. [facility] No Panel Informationon 01-20 Interpretation and review of laboratory results Abnormal [facility] Interpretation and review of laboratory results Abnormal [facility] Nursing Noteon 01-21-2024 Nursing Note Pt. On unit. BP jose elias ins elevated at 160/114. made aware and are okay with BP at present time. Normal [facility] PROTIME AND APTTon aPTT Coag (Bld) [Time] 25.7 s Normal 20.0-30.5 [facility] Comment on above: Performed By: #### L [id number] ####Lathe Turner: JUDITH MARKHAM ([id number])[address] INR Coag (PPP) [Relative time] 1.1 {INR} Normal 0.9-1.1 [facility] Comment on above: Result Comment: Mason mmended Anticoagulant Therapy: SEE BELOW----- INR of 2.0 - 3.0 : - Prophylaxis of Venous Thrombosis (high-risk surgery) - Treatment of Venous Thrombosis - Treatment of Pulmonary Embolism (Includes tissue heart valves, Acute Myocardial Infarction to prevent systemic embolism, Valvular Heart Disease, and Atrial Fibrillation)----- INR of 2.5 - 3.5 : - Mechanical Prosthetic Valves (high risk) - If oral anticoagulant therapy is used to prevent Myocardial Infarction Performed By: #### L [id number] ####Lathe Turner: JUDITH MARKHAM ([id number])[facility] ([facility])[address] [place] [address] PT Coag (PPP) [Time] 12.4 s High 9.0-12.0 [facility] Comment on above: Performed By: #### L [id number] ####Lathe Turner: JUDITH MARKHAM ([id number])[facility] ([facility])[address] [place] [address] Progress Noteon 01-21-2024 Progress Note Normal [facility] CBC W Auto Differential pane l (Bld)on 01-20-2024 Basophils (Bld) [#/Vol] 0.1 10*3/uL 0.0 - 0.2 10*3/uL [facility] Basophils/100 WBC (Bld) 0.7 % 0.0 - 2.0 % [facility] Eosinophils (Bld) [#/Vol] 0 10*3/uL 0.0 - 0.5 10*3/uL [facility] Eosinophils/100 WBC (Bld) 0.4 % 0.0 - 6.0 % [facility] Erythrocyte distribution width (RBC) [Ratio] 13.9 % 11.5 - 15.0 % [facility] Hematocrit (Bld) [Volume fraction] 48 % 40.0 - 52.0 % [facility] Hemoglobin (Bld) [Mass/Vol] 15.9 g/dL 13.0 - 18.0 g/dL [facility] Immature granulocytes (Bld) [#/Vol] 0 10*3/uL NINF - 0.1 10*3/uL [facility] Immature granulocytes/100 WBC (Bld) 0.2 % 0.0 - 2.0 % [facility] Interpretation and review of laboratory results Abnormal [facility] Lymphocytes (Bld) [#/Vol] 3.7 10*3/uL 1.0 - 4.3 10*3/uL [facility] Lymphocytes/100 WBC (Bld) 45.8 % High 15.0 - 45.0 % [facility] MCH (RBC) [Entitic mass] 29.9 pg 26.0 - 34.0 pg [facility] MCHC (RBC) [Mass/Vol] 33.1 % 30.5 - 36.0 % [facility] MCV (RBC) [Entitic vol] 90.2 fL 77.0 - 99.0 fL [facility] Monocytes (Bld) [#/Vol] 0.5 10*3/uL 0.0 - 0.9 10*3/uL [facility] Monocytes/100 WBC (Bld) 6.1 % 5.0 - 13.0 % [facility] Neutrophils (Bld) [#/Vol] 3.8 10*3/uL 1.8 - 7.5 10*3/uL [facility] Neutrophils/100 WBC (Bld) 46.8 % 38.0 - 82.0 % [facility] Nucleated RBC/100 WBC (Bld) [Ratio] 0 % [facility] Platelet mean volume (Bld) [Entitic vol] 9.7 fL 9.0 - 12.7 fL [facility] Platelets (Bld) [#/Vol] 323 10*3/uL 140 - 440 10*3/uL [facility] RBC (Bld) [#/Vol] 5.32 10*6/uL 4.40 - 5.9 0 10*6/uL [facility] WBC (Bld) [#/Vol] 8.2 10*3/uL 3.6 - 10.7 10*3/uL [facility] CBC WITH AUTO DIFFERENTIALon 01-20-2024 Basophils (Bld) [#/Vol] 0.1 10*3/uL Normal 0.0-0.2 [facility] Comment on above: Performed By: #### L [id number] ####Lathe Turner: JUDITH MARKHAM ([id number])[facility] ([facility])[address] [place] [address] Basophils/100 WBC (Bld) 0.7 % Normal 0.0-2.0 [facility] Comment on above: Performed By: #### L [id number] ####Lathe Turner: JUDITH MARKHAM ([id number])[facility] ([facility])[address] [place] [address] Eosinophils (Bld) [#/Vol] 0.0 10*3/uL Normal 0.0-0.5 [facility] Comment on above: Performed By: #### L [id number] ####Lathe Turner: JUDITH MARKHAM ([id number])[address] Eosinophils/100 WBC (Bld) 0.4 % Normal 0.0-6.0 [facility] Comment on above: Performed By: #### L [id number] ####Lathe Turner: JUDITH MARKHAM ([id number])[facility])[address] [place] [address] Erythrocyte distribution width (RBC) [Ratio] 13.9 % Normal 11.5-15.0 [facility] Comment on above: Performed By: #### L [id number] ####Lathe Turner: JUDITH MARKHAM ([id number])[address] Hematocrit (Bld) [Volume fraction] 48.0 % Normal 40.0-52.0 [facility] Comment on above: Performed By: #### L [id number] ####Lathe Turner: JUDITH MARKHAM ([id number])[address] Hemoglobin (Bld) [Mass/Vol] 15.9 g/dL Normal 13.0-18.0 [facility] Comment on above: Performed By: #### L [id number] ####Lathe Turner: JUDITH MARKHAM ([id number])[address] IMMATURE GRANS % 0.2 % Normal 0.0-2.0 [facility] Comment on above: Performed By: #### L [id number] ####Lathe Turner: JUDITH MARKHAM ([id number])[address] IMMATURE GRANS ABSOLUTE 0.0 10*3/uL Normal <0.1 [facility] Comment on above: Performed By: #### L [id number] ####Lathe Turner: JUDITH MARKHAM ([id number])[facility])[address] [place] [address] Lymphocytes (Bld) [#/Vol] 3.7 10*3/uL Normal 1.0-4.3 [facility] Comment on above: Performed By: #### L [id number] ####Lathe Turner: JUDITH MARKHAM ([id number])[facility])[address] [place] [address] Lymphocytes/100 WBC (Bld) 45.8 % High 15.0-45.0 [facility] Comment on above: Performed By: #### L [id number] ####Lathe Turner: JUDITH MARKHAM ([id number])[address] MCH (RBC) [Entitic mass] 29.9 pg Normal 26.0-34.0 [facility] Comment on above: Performed By: #### L [id number] ####Lathe Turner: JUDITH MARKHAM ([id number])[facility])[address] [place] [address] MCHC 33.1 % Normal 30.5-36.0 [facility] Comment on above: Performed By: #### L [id number] ####Lathe Turner: JUDITH MARKHAM ([id number])[facility])[address] [place] [address] MCV (RBC) [Entitic vol] 90.2 fL Normal 77.0-99.0 [facility] Comment on above: Performed By: #### L [id number] ####Lathe Turner: JUDITH MARKHAM ([id number])[facility])[address] [place] [address] Monocytes (Bld) [#/Vol] 0.5 10*3/uL Normal 0.0-0.9 [facility] Comment on above: Performed By: #### L [id number] ####Lathe Turner: JUDITH MARKHAM ([id number])[facility])[address] [place] [address] Monocytes/100 WBC (Bld) 6.1 % Normal 5.0-13.0 [facility] Comment on above: Performed By: #### L [id number] ####Lathe Turner: JUDITH MARKHAM ([id number])[facility] ([facility])[address] [place] [address] NEUTROPHILS ABSOLUTE 3.8 10*3/uL Normal 1.8-7.5 [facility] Comment on above: Performed By: #### L [id number] ####Lathe Turner: JUDITH MARKHAM ([id number])[facility] ([facility])[address] [place] [address] Neutrophils/100 WBC (Bld) 46.8 % Normal 38.0-82.0 [facility] Comment on above: Performed By: #### L [id number] ####Lathe Turner: JUDITH MARKHAM ([id number])[facility] ([facility])[address] [place] [address] NRBC 0.0 /100 WBCs Normal 0.0-2.0 [facility] Comment on above: Performed By: #### L [id number] ####Lathe Turner: JUDITH MARKHAM ([id number])[facility] ([facility])[address] [place] [address] Platelet mean volume (Bld) [Entitic vol] 9.7 fL Normal 9.0-12.7 [facility] Comment on above: Performed By: #### L [id number] ####Lathe Turner: JUDITH MARKHAM ([id number])[facility] ([facility])[address] [place] [address] [place] Platelets (Bld) [#/Vol] 323 10*3/uL Normal 140-440 [facility] Comment on above: Performed By: #### L [id number] ####Lathe Turner: JUDITH MARKHAM ([id number])[facility] ([facility])[address] [place] [address] RBC (Bld) [#/Vol] 5.32 10*6/uL Normal 4.40-5.90 [facility] Comment on above: Performed By: #### L [id number] ####Lathe Turner: JUDITH MARKHAM ([id number])[facility])[address] [place] [address] WBC (Bld) [#/Vol] 8.2 10*3/uL Normal 3.6-10.7 [facility] Comment on above: Performed By: #### L [id number] ####Lathe Turner: JUDITH MARKHAM ([id number])[facility] ([facility])[address] [place] [address] COMPLETE URINALYSISon 2023 BACTERIA (#/HPF) IN URINE Moderate Abnormal Negative [facility] Comment on above: Performed By: #### L [id number] ####Lathe Turner: JUDITH MARKHAM ([id number])[address] BILIRUBIN, TOTAL PRESENCE IN URINE Negative Normal Negative [facility] Comment on above: Performed By: #### L [id number] ####Lathe Turner: JUDITH MARKHAM ([id number])[facility])[address] [place] [address] Clarity (U) Slightly Cloudy Abnormal Clear [facility] Comment on above: Performed By: #### L [id number] ####Lathe Turner: JUDITH MARKHAM ([id number])[facility])[address] [place] [address] Color (U) Yellow Normal Lt. Yellow [facility] Comment on above: Performed By: #### L [id number] ####Lathe Turner: JUDITH MARKHAM ([id number])[facility])[address] [place] [address] Glucose (U) [Mass/Vol] 30 mg/dL Normal Normal (<70) [facility] Comment on above: Performed By: #### L [id number] ####Lathe Turner: JUDITH [id number])[facility])[address] [place] [address] HEMOGLOBIN PRESENCE IN URINE Negative Normal Negative [facility] Comment on above: Performed By: #### L [id number] ####Lathe Turner: JUDITH MARKHAM ([id number])[facility])[address] [place] [address] HYALINE CASTS (#/LPF) IN URINE SEDIMENT BY MICROSCOPY 11-25 Abnormal Negative [facility] Comment on above: Performed By: #### L [id number] ####Lathe Turner: JUDITH MARKHAM ([id number])[facility] ([facility])[address] [place] [address] Ketones Ql (U) Trace Abnormal Negative [facility] Comment on above: Performed By: #### L [id number] ####Lathe Turner: JUDITH MARKHAM ([id number])[facility])[address] [place] [address] LEUKOCYTE ESTERASE PRESENCE IN URINE BY TEST STRIP Negative Normal Negative [facility] Comment on above: Performed By: #### L [id number] ####Lathe Turner: JUDITH MARKHAM ([id number])[facility] ([facility])[address] [place] [address] MUCUS (#/LPF) IN URINE SEDIMENT Many Abnormal Negative [facility] Comment on above: Performed By: #### L [id number] ####Lathe Turner: JUDITH MARKHAM ([id number])[facility])[address] [place] [address] NITRITE PRESENCE IN URINE Negative Normal Negative [facility] Comment on above: Performed By: #### L [id number] ####Lathe Turner: JUDITH MARKHAM ([id number])[facility] ([facility])[address] [place] [address] pH (U) 5.5 [pH] Normal 5.0-8.0 [facility] Comment on above: Performed By: #### L [id number] ####Lathe Turner: JUDITH MARKHAM ([id number])[facility])[address] [place] [address] Protein (U) [Mass/Vol] 50 mg/dL Abnormal Negative [facility] Comment on above: Performed By: #### L [id number] ####Lathe Turner: JUDITH MARKHAM ([id number])[facility])[address] [place] [address] RBC (#/HPF) IN URINE SEDIMENT 0-2 Normal 0-2 [facility] Comment on above: Performed By: #### L [id number] ####Lathe Turner: JUDITH MARKHAM ([id number])[facility] ([facility])[address] [place] [address] Specific gravity (U) [Rel density] 1.019 Normal 1.005-1.030 [facility] Comment on above: Performed By: #### L [id number] ####Lathe Turner: JUDITH MARKHAM ([id number])[facility])[address] [place] [address] SQUAMOUS EPITHELIAL CELLS (#/HPF) IN URINE SEDIMENT 0-2 Normal 3-5 [facility] Comment on above: Performed By: #### L [id number] ####Lathe Turner: JUDITH MARKHAM ([id number])[facility])[address] [place] [address] UROBILINOGEN (MG/DL) IN URINE 3 mg/dL Abnormal Normal (0-1) [facility] Comment on above: Performed By: #### L [id number] ####Lathe Turner: JUDITH MARKHAM ([id number])[facility])[address] [place] [address] WBC (LEUKOCYTE) (#/HPF) IN URINE SEDIMENT 3-5 Normal 0-5 [facility] Comment on above: Performed By: #### L [id number] ####Lathe Turner: JUDITH MARKHAM ([id number])[facility])[address] [place] [address] COMPREHENSIVE METABOLIC PANE Rylan 01-20-2024 Albumin [Mass/Vol] 4.3 g/dL Normal 3.5-5.0 [facility] Comment on above: Performed By: #### L AB17, LAB99 ####Lathe Turner: JUDITH MARKHAM ([id number])[facility] ([facility])[address] ALP [Catalytic activity/Vol] 209 U/L High 40-150 [facility] Comment on above: Performed By: #### L AB17, LAB99 ####Lathe Turner: JUDITH MARKHAM ([id number])[facility] ([facility])[address] [place] [address] [place] ALT [Catalytic activity/Vol] 206 U/L High <40 [facility] Comment on above: Performed By: #### L AB17, LAB99 ####Lathe Turner: JUDITH MARKHAM ([id number])[facility] ([facility])[address] [place] [address] Anion gap [Moles/Vol] 13 mmol/L Normal 3-13 [facility] Comment on above: Performed By: #### L AB17, LAB99 ####Lathe Turner: JUDITH MARKHAM ([id number])[facility] ([facility])[address] [place] [address] AST [Catalytic activity/Vol] 235 U/L High <34 [facility] Comment on above: Performed By: #### L AB17, LAB99 ####Lathe Turner: JUDITH MARKHAM ([id number])[facility] ([facility])[address] [place] [address] Bilirubin [Mass/Vol] 0.6 mg/dL Normal <1.2 [facility] Comment on above: Performed By: #### L AB17, LAB99 ####Lathe Turner: JUDITH MARKHAM ([id number])[facility] ([facility])[address] [place] [address] Calcium [Mass/Vol] 9.5 mg/dL Normal 8.4-10.2 [facility] Comment on above: Performed By: #### L AB17, LAB99 ####Lathe Turner: JUDITH MARKHAM ([id number])[facility] ([facility])[address] [place] [address] [place] Chloride [Moles/Vol] 103 mmol/L Normal 98-107 [facility] Comment on above: Performed By: #### L AB17, LAB99 ####Lathe Turner: JUDITH MARKHAM ([id number])[facility] ([facility])[address] [place] [address] CO2 [Moles/Vol] 27 mmol/L Normal 22-29 [facility] Comment on above: Performed By: #### Iggy AB17, LAB99 ####Lathe Turner: JUDITH MARKHAM ([phone])[facility])[address] [place] [address] Creatinine [Mass/Vol] 0.84 mg/dL Normal 0.72-1.25 [facility] Comment on above: Performed By: #### Iggy AB17, LAB99 ####Lathe Turner: JUDITH MARKHAM ([phone])[facility])[address] [place] [address] GLOMERULAR FILTRATION RATE ML/MIN/1.73 SQ M.PREDICTED >90.0 Normal >60.0 [facility] Comment on above: Result Comment: Calc ulation based on the Chronic Kidney Disease Epidemiology Collaboration (CKD-EPI) equation refit without adjustment for race Performed By: #### L 17, LAB99 ####Lathe Turner: JUDITH MARKHAM ([id number])[facility] ([facility])[address] [place] [address] Glucose [Mass/Vol] 136 mg/dL High 74-100 [facility] Comment on above: Performed By: #### L AB17, LAB99 ####Lathe Turner: JUDITH MARKHAM ([id number])[facility])[address] [place] [address] [place] Potassium [Moles/Vol] 4.5 mmol/L Normal 3.5-5.1 [facility] Comment on above: Result Comment: [facility] potassium values may be up to 0.5 mmol/L lower than serum values. Performed By: #### L AB17, LAB99 ####Lathe Turner: JUDITH MARKHAM ([id number])[facility] ([facility])[address] [place] [address] Protein [Mass/Vol] 8.7 g/dL High 6.4-8.3 [facility] Comment on above: Performed By: #### L AB17, LAB99 ####Lathe Turner: JUDITH MARKHAM ([phone])[facility])[address] [place] [address] Sodium [Moles/Vol] 143 mmol/L Normal 136-145 [facility] Comment on above: Performed By: #### L AB17, LAB99 ####Lathe Turner: JUDITH MARKHAM ([id number])[facility])[address] [place] [address] Urea nitrogen [Mass/Vol] 4 mg/dL Low 8-21 [facility] Comment on above: Performed By: #### L AB17, LAB99 ####Lathe Turner: JUDITH MARKHAM ([id number])[facility] ([facility])[address] [place] [address] CT ABDOMEN PELVIS W CONTRAST on 01-20-2024 CT ABDOMEN PELVIS W CONTRAST Normal [facility] CT Abdomen and Pelvis W cont rast lElen 01-20-2024 1. Acute pancreatitis. 2. Bladder wall mildly diffusely thickened which may relate to under distention. Correlate with urinalysis. 3. Diffuse hepatic steatosis. Report Dictated on Electronically Signed By: Steve Medellin MD Electronically Signed Date/Time: 01/20/2024 2:50 PM [facility] Patient Name: RORO CLAIRE : 1985 Exam Date/Time: 01/20/2024 14:32 Procedure: CT ABDOMEN PELVIS W CONTRAST Ordering Provider: CARBALLO JACOB Reason For Exam: Abdominal pain, acute, nonlocalized CT ABDOMEN AND PELVIS CLINICAL INDICATION: Abdominal pain, acute, nonlocalized TECHNIQUE: CT scan of the abdomen and pelvis with IV contrast. Multiplanar reformations. Dose reduction was employed with automated exposure control. COMPARISON: 11/22/2023 FINDINGS: Lung bases are clear. No free intraperitoneal gas seen. Diffuse hepatic steatosis noted. No significant focal hepatic lesion seen. Gallbladder and biliary tree appear unremarkable. Spleen shows no significant abnormality. Adrenal glands show no significant abnormality. Kidneys show no significant abnormality. Extensive peripancreatic inflammatory changes and some ill-defined fluid. No pseudocyst identified. Splenic vein appears patent. Portal vein appears patent. No pancreatic mass seen. Normal pancreatic enhancement. Abdominal aorta is nonaneurysmal. Status post appendectomy. Mild diffuse bladder wall thickening may be related to under distention. No bowel obstruction. [facility]IOLOG[facility] Steve Medellin MD - 01/20/2024 Patient Name: RORO VALDIVIA : 1985 Exam Date/Time: 01/20/2024 14:32 Procedure: CT ABDOMEN PELVIS W CONTRAST Ordering Provider: CARBALLO JACOB Reason For Exam: Abdominal pain, acute, nonlocalized CT ABDOMEN AND PELVIS CLINICAL INDICATION: Abdominal pain, acute, nonlocalized TECHNIQUE: CT scan of the abdomen and pelvis with IV contrast. Multiplanar reformations. Dose reduction was employed with automated exposure control. COMPARISON: 11/22/2023 FINDINGS: Lung bases are clear. No free intraperitoneal gas seen. Diffuse hepatic steatosis noted. No significant focal hepatic lesion seen. Gallbladder and biliary tree appear unremarkable. Spleen shows no significant abnormality. Adrenal glands show no significant abnormality. Kidneys show no significant abnormality. Extensive peripancreatic inflammatory changes and some ill-defined fluid. No pseudocyst identified. Splenic vein appears patent. Portal vein appears patent. No pancreatic mass seen. Normal pancreatic enhancement. Abdominal aorta is nonaneurysmal. Status post appendectomy. Mild diffuse bladder wall thickening may be related to under distention. No bowel obstruction. IMPRESSION: 1. Acute pancreatitis. 2. Bladder wall mildly diffusely thickened which may relate to under distention. Correlate with urinalysis. 3. Diffuse hepatic steatosis. Report Dictated on Electronically Signed By: Steve Medellin MD Electronically Signed Date/Time: 01/20/2024 2:50 PM EST [facility] Radiology Study observation (narrative) [facility] CT Abdomen and Pelvis W cont rast IVOrdered By: Steve Medellin on 01-20-2024 [facility] Work Phone: Comprehensive metabolic 1998 panelon 01-20-2024 Albumin [Mass/Vol] 4.3 g/dL 3.5 - 5.0 g/dL [facility] ALP [Catalytic activity/Vol] 209 U/L High 40 - 150 U/L [facility] ALT [Catalytic activity/Vol] 206 U/L High NINF - 40 U/L [facility] Anion gap [Moles/Vol] 13 mmol/L 3 - 13 mmol/L [facility] AST [Catalytic activity/Vol] 235 U/L High NINF - 34 U/L [facility] Bilirubin [Mass/Vol] 0.6 mg/dL NINF - 1.2 mg/dL [facility] Calcium [Mass/Vol] 9.5 mg/dL 8.4 - 10. 2 mg/dL [facility] Chloride [Moles/Vol] 103 mmol/L 98 - 10 7 mmol/L [facility] CO2 [Moles/Vol] 27 mmol/L 22 - 29 mmol/L [facility] Creatinine [Mass/Vol] 0.84 mg/dL 0.72 - 1.25 mg/dL [facility] GFR/1.73 sq M.predicted (S/P/Bld) [Vol rate/Area] - PINF [facility] Comment on above: Calculation based on the Chronic Kidney Disease Epidemiology Collaboration (CKD-EPI) equation refit without adjustment for race Glucose [Mass/Vol] 136 mg/dL High 74 - 100 mg/dL [facility] Potassium [Moles/Vol] 4.5 mmol/L 3.5 - 5.1 mmol/L [facility] Comment on above: Plasma potassium víctor ues may be up to 0.5 mmol/L lower than serum values. Protein [Mass/Vol] 8.7 g/dL High 6.4 - 8.3 g/dL [facility] Sodium [Moles/Vol] 143 mmol/L 136 - 145 mmol/L [facility] Urea nitrogen [Mass/Vol] 4 mg/dL Low 8 - 21 mg/dL [facility] ED Nursing Noteon 01-20-2024 ED Nursing Note Normal [facility] ED Nursing Note Normal [facility] ED Nursing Note Pt ambulated to bathroom independently with IV pole with a steady gait. Back to bed with no distress with exertion. Chest rise equal, axo x4. No needs expressed at this time. Normal [facility] ED Nursing Note Pt medicated per oder Normal [facility] ED Provider Noteon ED Provider Note Normal [facility] LIPASEon 01-20-2024 Lipase [Catalytic activity/Vol] 273 U/L High <55 [facility] Comment on above: Performed By: #### L AB17, LAB99 ####Lathe Turner: JUDITH MARKHAM ([id number])[facility] ([address] Laboratory - Chemistry and C hemistry - challengeon 01-20-2024 Lipase [Catalytic activity/Vol] 273 U/L High NINF - 55 U/L [facility] No Panel Informationon 01-19 Interpretation and review of laboratory results Abnormal [facility] Nursing Noteon 01-20-2024 Nursing Note Normal [facility] Urinalysis complete panel (U )Ordered By: Clement Sullivan on 01-20-2024 Bacteria LM.HPF (Urine sed) [#/Area] Moderate Abnormal Negative /HPF [facility] Bilirubin Ql (U) Negative Negative mg/dL [facility] Clarity (U) Slightly Cloudy Abnormal Clear [facility] Color (U) Yellow Lt. Yellow [facility] Epithelial cells.squamous LM.HPF (Urine sed) [#/Area] 0-2 [facility] Glucose Ql (U) 30 mg/dL Normal (<70) [facility] Hemoglobin Ql (U) Negative Negative mg/dL [facility] Hyaline casts Auto (Urine sed) [#/Area] 11-25 Abnormal Negative /LPF [facility] Interpretation and review of laboratory results Abnormal [facility] Ketones (U) [Mass/Vol] Trace Abnormal Negat chan mg/dL [facility] Leukocyte esterase Test strip Ql (U) Negative Negative Teofilo/uL [facility] Mucus LM.HPF (Urine sed) [#/Area] Many Abnormal Negative /LPF [facility] Nitrite Ql (U) Negative Negative [facility] pH (U) 5.5 [pH] 5.0 - 8.0 pH [facility] Protein (U) [Mass/Vol] 50 mg/dL Abnormal Negative [facility] RBC LM.HPF (Urine sed) [#/Area] 0-2 [facility] Specific gravity (U) [Rel density] 1.019 1.005 - 1.030 [facility] Urobilinogen (U) [Mass/Vol] 3 mg/dL Abnormal Normal (0-1) [facility] WBC LM.HPF (Urine sed) [#/Area] 3-5 [facility] CBC W Auto Differential pane l (Bld)on 01-08-2024 Basophils (Bld) [#/Vol] 0 10*3/uL 0.0 - 0.2 10*3/uL [facility] Basophils/100 WBC (Bld) 0.5 % 0.0 - 2.0 % [facility] Eosinophils (Bld) [#/Vol] 0.1 10*3/uL 0.0 - 0.5 10*3/uL [facility] Eosinophils/100 WBC (Bld) 0.8 % 0.0 - 6.0 % [facility] Erythrocyte distribution width (RBC) [Ratio] 13.7 % 11.5 - 15.0 % [facility] Hematocrit (Bld) [Volume fraction] 47.7 % 40.0 - 52.0 % [facility] Hemoglobin (Bld) [Mass/Vol] 15.6 g/dL 13.0 - 18.0 g/dL [facility] Immature granulocytes (Bld) [#/Vol] 0 10*3/uL NINF - 0.1 10*3/uL [facility] Immature granulocytes/100 WBC (Bld) 0.1 % 0.0 - 2.0 % [facility] Interpretation and review of laboratory results Normal [facility] Lymphocytes (Bld) [#/Vol] 1.9 10*3/uL 1.0 - 4.3 10*3/uL [facility] Lymphocytes/100 WBC (Bld) 24.4 % 15.0 - 45.0 % [facility] MCH (RBC) [Entitic mass] 31 pg 26.0 - 34.0 pg [facility] MCHC (RBC) [Mass/Vol] 32.7 % 30.5 - 36.0 % [facility] MCV (RBC) [Entitic vol] 94.6 fL 77.0 - 99.0 fL [facility] Monocytes (Bld) [#/Vol] 0.5 10*3/uL 0.0 - 0.9 10*3/uL [facility] Monocytes/100 WBC (Bld) 5.9 % 5.0 - 13.0 % [facility] Neutrophils (Bld) [#/Vol] 5.3 10*3/uL 1.8 - 7.5 10*3/uL [facility] Neutrophils/100 WBC (Bld) 68.3 % 38.0 - 82.0 % [facility] Nucleated RBC/100 WBC (Bld) [Ratio] 0 % [facility] Platelet mean volume (Bld) [Entitic vol] 10.5 fL 9.0 - 12.7 fL [facility] Platelets (Bld) [#/Vol] 300 10*3/uL 140 - 440 10*3/uL [facility] RBC (Bld) [#/Vol] 5.04 10*6/uL 4.40 - 5.9 0 10*6/uL [facility] WBC (Bld) [#/Vol] 7.8 10*3/uL 3.6 - 10.7 10*3/uL [facility] CBC WITH AUTO DIFFERENTIALon 01-08-2024 Basophils (Bld) [#/Vol] 0.0 10*3/uL Normal 0.0-0.2 [facility] Comment on above: Performed By: #### L [id number] ####Lathe Turner: SHENA GUERIN ([id number])[facility] [place] [address] Basophils/100 WBC (Bld) 0.5 % Normal 0.0-2.0 [facility] Comment on above: Performed By: #### L [id number] ####Lathe Turner: SHENA GUERIN ([id number])[facility] ([facility])[address] Eosinophils (Bld) [#/Vol] 0.1 10*3/uL Normal 0.0-0.5 [facility] Comment on above: Performed By: #### L [id number] ####Lathe Turner: SHENA GUERIN ([id number])[facility] ([facility])[address] Eosinophils/100 WBC (Bld) 0.8 % Normal 0.0-6.0 [facility] Comment on above: Performed By: #### L [id number] ####Lathe Turner: SHENA GUERIN ([id number])[facility])[address] Erythrocyte distribution width (RBC) [Ratio] 13.7 % Normal 11.5-15.0 [facility] Comment on above: Performed By: #### L [id number] ####Lathe Turner: SHENA GUERIN ([id number])[facility])[address] [place] [address] Hematocrit (Bld) [Volume fraction] 47.7 % Normal 40.0-52.0 [facility] Comment on above: Performed By: #### L [id number] ####Lathe Turner: SHENA GUERIN ([id number])[facility] [place] [address] Hemoglobin (Bld) [Mass/Vol] 15.6 g/dL Normal 13.0-18.0 [facility] Comment on above: Performed By: #### L [id number] ####Lathe Turner: SHENA GUERIN ([id number])[facility])[address] IMMATURE GRANS % 0.1 % Normal 0.0-2.0 [facility] Comment on above: Performed By: #### L [id number] ####Lathe Turner: SHENA GUERIN ([id number])[facility])[address] IMMATURE GRANS ABSOLUTE 0.0 10*3/uL Normal <0.1 [facility] Comment on above: Performed By: #### L [id number] ####Lathe Turner: SHENA GUERIN ([id number])[facility] ([facility])[address] Lymphocytes (Bld) [#/Vol] 1.9 10*3/uL Normal 1.0-4.3 [facility] Comment on above: Performed By: #### L [id number] ####Lathe Turner: SHENA GUERIN ([id number])[facility] [place] ([facility])[address] Lymphocytes/100 WBC (Bld) 24.4 % Normal 15.0-45.0 [facility] Comment on above: Performed By: #### L [id number] ####Lathe Turner: SHENA GUERIN ([id number])[facility] [place] ([facility])[address] MCH (RBC) [Entitic mass] 31.0 pg Normal 26.0-34.0 [facility] Comment on above: Performed By: #### L [id number] ####Lathe Turner: SHENA GUERIN ([id number])[facility] [place] ([facility])[address] MCHC 32.7 % Normal 30.5-36.0 [facility] Comment on above: Performed By: #### L [id number] ####Lathe Turner: SHENA GUERIN ([id number])[facility] C[facility]USKyler [place] ([facility])[address] MCV (RBC) [Entitic vol] 94.6 fL Normal 77.0-99.0 [facility] Comment on above: Performed By: #### L [id number] ####Lathe Turner: SHENA GUERIN ([id number])[facility] [place] ([facility])[address] [place] [address] [place] Monocytes (Bld) [#/Vol] 0.5 10*3/uL Normal 0.0-0.9 [facility] Comment on above: Performed By: #### L [id number] ####Lathe Turner: SHENA GUERIN ([id number])[facility] ([facility])[address] Monocytes/100 WBC (Bld) 5.9 % Normal 5.0-13.0 [facility] Comment on above: Performed By: #### L [id number] ####Lathe Turner: SHENA GUERIN ([id number])[facility] ([facility])[address] NEUTROPHILS ABSOLUTE 5.3 10*3/uL Normal 1.8-7.5 [facility] Comment on above: Performed By: #### L [id number] ####Lathe Turner: SHENA GUERIN ([id number])[facility] ([facility])[address] Neutrophils/100 WBC (Bld) 68.3 % Normal 38.0-82.0 [facility] Comment on above: Performed By: #### L [id number] ####Lathe Turner: SHENA GUERIN ([id number])[facility] ([facility])[address] NRBC 0.0 /100 WBCs Normal 0.0-2.0 [facility] Comment on above: Performed By: #### L [id number] ####Lathe Turner: SHENA GUERIN ([id number])[facility] ([facility])[address] Platelet mean volume (Bld) [Entitic vol] 10.5 fL Normal 9.0-12.7 [facility] Comment on above: Performed By: #### L [id number] ####Lathe Turner: SHENA GUERIN ([id number])[facility] ([facility])[address] [place] [address] [place] Platelets (Bld) [#/Vol] 300 10*3/uL Normal 140-440 [facility] Comment on above: Performed By: #### L [id number] ####Lathe Turner: SHENA GUERIN ([id number])[facility] ([facility])[address] RBC (Bld) [#/Vol] 5.04 10*6/uL Normal 4.40-5.90 [facility] Comment on above: Performed By: #### L [id number] ####Lathe Turner: SHENA GUERIN ([id number])[facility] CAMPUSKyler [facility] ([facility])[address] WBC (Bld) [#/Vol] 7.8 10*3/uL Normal 3.6-10.7 [facility] Comment on above: Performed By: #### L [id number] ####Lathe Turner: SHENA GUERIN ([id number])[facility]USK[facility] ([facility])[address] COMPREHENSIVE METABOLIC PANE Rylan 01-08-2024 Albumin [Mass/Vol] 4.8 g/dL Normal 3.5-5.0 [facility] Comment on above: Performed By: #### L AB99, LAB17 ####Lathe Turner: SHENA GUERIN ([id number])[facility]USK[facility] ([facility])[address] ALP [Catalytic activity/Vol] 146 U/L High 38-126 [facility] Comment on above: Performed By: #### L AB99, LAB17 ####Lathe Turner: SHENA GUERIN ([id number])[facility]USKyler [facility] ([facility])[address] ALT [Catalytic activity/Vol] 139 U/L High 0-49 [facility] Comment on above: Performed By: #### L AB99, LAB17 ####Lathe Turner: SHENA GUERIN ([id number])[facility]USK[facility] ([facility])[address] Anion gap [Moles/Vol] 9 mmol/L Normal 3-13 [facility] Comment on above: Performed By: #### L AB99, LAB17 ####Lathe Turner: SHENA GUERIN ([id number])[facility] ([facility])[address] AST [Catalytic activity/Vol] 151 U/L High 15-46 [facility] Comment on above: Performed By: #### L AB99, LAB17 ####Lathe Turner: SHENA GUERIN ([id number])[facility] ([facility])[address] [place] [address] [place] Bilirubin [Mass/Vol] 1.5 mg/dL High 0.2-1.3 [facility] Comment on above: Performed By: #### L AB99, LAB17 ####Lathe Turner: SHENA GUERIN ([id number])[facility]USA [place] ([facility])[address] Calcium [Mass/Vol] 9.8 mg/dL Normal 8.4-10.4 [facility] Comment on above: Performed By: #### L AB99, LAB17 ####Lathe Turner: SHENA GUERIN ([id number])[facility] [place] ([facility])[address] [place] [address] [place] Chloride [Moles/Vol] 101 mmol/L Normal 98-107 [facility] Comment on above: Performed By: #### L AB99, LAB17 ####Lathe Turner: SHENA GUERIN ([id number])[facility] [place] ([facility])[address] [place] [address] [place] CO2 [Moles/Vol] 26 mmol/L Normal 22-30 [facility] Comment on above: Performed By: #### L AB99, LAB17 ####Lathe Turner: SHENA GUERIN ([id number])[facility]USA [place] ([facility])[address] [place] [address] [place] Creatinine [Mass/Vol] 0.65 mg/dL Low 0.66-1.25 [facility] Comment on above: Performed By: #### L AB99, LAB17 ####Lathe Turner: SHENA GUERIN ([id number])[facility] ([facility])[address] [place] [address] [place] GLOMERULAR FILTRATION RATE ML/MIN/1.73 SQ M.PREDICTED >90.0 Normal >60.0 [facility] Comment on above: Result Comment: Calc ulation based on the Chronic Kidney Disease Epidemiology Collaboration (CKD-EPI) equation refit without adjustment for raceORDER COMMENTS:Moderately Hemolyzed. Interpret with caution. Performed By: #### L AB99, LAB17 ####Lathe Turner: SHENA GUERIN ([id number])[facility] ([facility])[address] [place] [address] [place] Glucose [Mass/Vol] 127 mg/dL High 70-100 [facility] Comment on above: Performed By: #### L AB99, LAB17 ####Lathe Turner: SHENA GUERIN ([id number])[facility] ([facility])[address] [place] [address] [place] Potassium [Moles/Vol] 5.5 mmol/L High 3.5-5.1 [facility] Comment on above: Performed By: #### L AB99, LAB17 ####Lathe Turner: SHENA GUERIN ([id number])[facility] (HLAB)[address] [place] [address] [place] Protein [Mass/Vol] 8.6 g/dL High 6.3-8.2 [facility] Comment on above: Performed By: #### L AB99, LAB17 ####Lathe Turner: SHENA GUERIN ([id number])[facility] ([facility])[address] [place] [address] [place] Sodium [Moles/Vol] 136 mmol/L Normal 135-145 [facility] Comment on above: Performed By: #### L AB99, LAB17 ####Lathe Turner: SHENA GUERIN ([id number])[facility] ([facility])[address] [place] [address] [place] Urea nitrogen [Mass/Vol] 7 mg/dL Low 9-20 [facility] Comment on above: Performed By: #### L AB99, LAB17 ####Lathe Turner: SHENA GUERIN ([id number])[facility] ([facility])[address] [place] [address] Comprehensive metabolic 1998 panelon 01-08-2024 Albumin [Mass/Vol] 4.8 g/dL 3.5 - 5.0 g/dL [facility] ALP [Catalytic activity/Vol] 146 U/L High 38 - 126 U/L [facility] ALT [Catalytic activity/Vol] 139 U/L High 0 - 49 U/L [facility] Anion gap [Moles/Vol] 9 mmol/L 3 - 13 mmol/L [facility] AST [Catalytic activity/Vol] 151 U/L High 15 - 46 U/L [facility] Bilirubin [Mass/Vol] 1.5 mg/dL High 0.2 - 1 .3 mg/dL [facility] Calcium [Mass/Vol] 9.8 mg/dL 8.4 - 10. 4 mg/dL [facility] Chloride [Moles/Vol] 101 mmol/L 98 - 10 7 mmol/L [facility] CO2 [Moles/Vol] 26 mmol/L 22 - 30 mmol/L [facility] Creatinine [Mass/Vol] 0.65 mg/dL Low 0.66 - 1.25 mg/dL [facility] GFR/1.73 sq M.predicted (S/P/Bld) [Vol rate/Area] - PINF [facility] Comment on above: Calculation based on the Chronic Kidney Disease Epidemiology Collaboration (CKD-EPI) equation refit without adjustment for race Glucose [Mass/Vol] 127 mg/dL High 70 - 100 mg/dL [facility] Potassium [Moles/Vol] 5.5 mmol/L High 3.5 - 5.1 mmol/L [facility] Protein [Mass/Vol] 8.6 g/dL High 6.3 - 8.2 g/dL [facility] Sodium [Moles/Vol] 136 mmol/L 135 - 145 mmol/L [facility] Urea nitrogen [Mass/Vol] 7 mg/dL Low 9 - 20 mg/dL [facility] Moderately Hemolyzed . Interpret with caution. [facility] ECG 12-LEADon 01-08-2024 ECG 12-LEAD IMPRESSION: Sinus rhythm LVH by voltage Borderline T abnormalities, inferior leads ST elev, probable normal early repol pattern Electronically Signed On 01-08-2024 14:16:40 EST by Josseline Weber Normal [facility] ED Nursing Noteon 01-08-2024 ED Nursing Note Normal [facility] ED Provider Noteon ED Provider Note Normal [facility] LIPASEon 01-08-2024 Lipase [Catalytic activity/Vol] 484 U/L High 23-300 [facility] Comment on above: Performed By: #### L AB99, LAB17 ####Lathe Turner: SHENA GUERIN ([id number])[facility] ([facility])[address] [place] [address] Laboratory - Chemistry and C hemistry - challengeon 01-08-2024 Lipase [Catalytic activity/Vol] 484 U/L High 23 - 300 U/L [facility] No Panel Informationon 01-07 P [place] 50 degrees [facility] ME Interval 148 ms [facility] QRS [place] -13 degrees [facility] QRSD Interval 95 ms [facility] QT Interval 410 ms [facility] QTC Interval 444 ms [facility] T Wave [place] -2 degrees [facility] Sinus rhythm LVH by voltage Borderline T abnormalities, inferior leads ST elev, probable normal early repol pattern Electronically Signed On 01-08-2024 14:16:40 EST by Josseline Weber CV Josseline Davenport MD - 01/08/2024 IMPRESSION: Sinus rhythm LVH by voltage Borderline T abnormalities, inferior leads ST elev, probable normal early repol pattern Electronically Signed On 01-08-2024 14:16:40 EST by Josseline Weber [facility] Interpretation and review of laboratory results Abnormal [facility] Vital signson 01-08-2024 Heart rate 70 /min bpm [facility] ALLIED HEALTHon 12-22-2023 ALLIED HEALTH HNO ID: [id number] Author: SEEMA WALTON RT(R) Service: Radiology Author Type: Technologist Type: Allied Health Filed: 12/22/2023 14:43 Note Text: Radiology Service Progress Note DATE OF SERVICE: December 22, 2023 TIME: 2:42 PM PATIENT IDENTITY VERIFICATION COMPLETED USING TWO (2) STANDARD IDENTIFIERS: Name and Date of confirmed by patient verbally. FALL SCREENING: Has the patient had 2 falls in the last year or 1 fall with injury or currently using an Ambulatory Assistive Device (Walker, Cane, Wheelchair, Crutches, etc.)? Emergency Room Patient: Screened in ED PATIENT GENDER DATA: Male PATIENT RELEVANT IMPLANT DATA REVIEWED: Not Applicable PATIENT PRESENTS WITH AN IMPLANTABLE OR ATTACHED COLLATOR: No ALLERGIES: Reviewed and unchanged CONTRAST ALLERGY: NO. EXAM: CT -CONTRAST INDUCED NEPHROPATHY RISK FACTORS: Not applicable CREATININE: Creatinine Date Value Ref Range Status 12/22/2023 0.67 (L) 0.73 - 1.22 mg/dL Final Comment: Use of this assay is not recommended for patients undergoing treatment with phenindione, due to the potential for falsely depressed results. 04/22/2021 0.80 0.67 - 1.17 mg/dL Final 02/21/2021 0.83 0.73 - 1.22 mg/dL Final Estimated Glomerular Filtration Rate Date Value Ref Range Status 12/22/2023 123 >=60 mL/min/1.73m? Final Comment: Estimated Glomerular Filtration Rate (eGFR) is calculated using the 2020 CKD-EPI creatinine equation. This equation utilizes serum creatinine, sex, and age as parameters. The creatinine assay has traceable calibration to isotope dilution-mass spectrometry. Refer to KDIGO guidelines for clinical interpretation. In patients with unstable renal function, e.g. those with acute kidney injury, the eGFR may not accurately reflect actual GFR. eGFR- Date Value Ref Range Status 02/21/2021 >60 Final P.O.C.T. RESULTS: POC done: Yes, See Lab Tab December 22, 2023 TREATMENT: N/A PERIPHERAL IV DATA: Inpatient - refer to [facility] documentation RADIOLOGY DEPARTMENT: CT; Exam(s) Completed: Abdomen/Pelvis SIGNATURE: RT Nanci(R) PATIENT NAME: Roro Valdivia DATE: December 22, 2023 TIME: 2:[address] [facility] CBC W Auto Differential pane l (Bld)on 12-22-2023 Basophils (Bld) [#/Vol] 0.05 10*3/uL Normal <0.11 [facility] Comment on above: Order Comment: Speci men Type: BLOOD SPECIMENOrdering Facility: [facility] Address: [address] [place] [address] Performed By: #### 5 7021-8 ####COURT JUAN GREEN LABCLIA [id number] [place] [address] [place] [facility] Basophils/100 WBC (Bld) 0.7 % Normal A [facility] Comment on above: Order Comment: Speci men Type: BLOOD SPECIMENOrdering Facility: [facility] Address: [address] [place] [address] Performed By: #### 5 7021-8 ####COURT JUAN GREEN LABCLIA [id number] [place] [address] [facility] Differential cell count method Nom (Bld) Auto Normal [facility] Comment on above: Order Comment: Speci men Type: BLOOD SPECIMENOrdering Facility: [facility] Address: [address] [place] [address] Performed By: #### 5 7021-8 ####COURT JUAN [employer]EN LABCLIA [id number] [place] [address] [facility] Eosinophils (Bld) [#/Vol] 0.04 10*3/uL Normal <0.46 [facility] Comment on above: Order Comment: Speci men Type: BLOOD SPECIMENOrdering Facility: [facility] Address: [address] [place] [address] Performed By: #### 5 7021-8 ####COURT JUAN [employer]EN LABCLIA [id number] [place] [address] [facility] Eosinophils/100 WBC (Bld) 0.6 % Normal [facility] Comment on above: Order Comment: Speci men Type: BLOOD SPECIMENOrdering Facility: [facility] Address: [address] [place] [address] Performed By: #### 5 7021-8 ####C[employer]RT GENERAL [employer] LABCLIA [id number] [place] [address] [place] [facility] Erythrocyte distribution width (RBC) [Ratio] 14.2 % Normal 11.5-15.0 [facility] Comment on above: Order Comment: Speci men Type: BLOOD SPECIMENOrdering Facility: [facility] Address: [address] [place] [address] Performed By: #### 5 7021-8 ####COURT MURRAY LABCLIA [id number] [place] [address] [place] Hematocrit (Bld) [Volume fraction] 45.7 % Normal 39.0-51.0 [facility] Comment on above: Order Comment: Speci men Type: BLOOD SPECIMENOrdering Facility: [facility] Address: [address] [place] [address] Performed By: #### 5 7021-8 ####VANCEMAYURI MURRAY LABCLIA [id number] [place] [address] [place] Hemoglobin (Bld) [Mass/Vol] 15.2 g/dL Normal 13.0-17.0 [facility] Comment on above: Order Comment: Speci men Type: BLOOD SPECIMENOrdering Facility: [facility] Address: [address] [place], [place] [address] Performed By: #### 5 7021-8 ####[facility] LABCLIA [id number] [place] [address] [place] Immature granulocytes (Bld) [#/Vol] 10*3/uL Normal <0.10 [facility] Comment on above: Order Comment: Speci men Type: BLOOD SPECIMENOrdering Facility: [facility] Address: [address] [place] [address] Performed By: #### 5 7021-8 ####[facility] LABCLIA [id number] [place] [address] [place] Immature granulocytes/100 WBC (Bld) 0.0 % Normal [facility] Comment on above: Order Comment: Speci men Type: BLOOD SPECIMENOrdering Facility: [facility] Address: [address] [place] [address] Performed By: #### 5 7021-8 ####MAM[facility] LABCLIA [id number] [place] [address] [place] Lymphocytes (Bld) [#/Vol] 2.01 10*3/uL Normal 1.00-4.00 [facility] Comment on above: Order Comment: Speci men Type: BLOOD SPECIMENOrdering Facility: [facility] Address: [address] [place] [address] Performed By: #### 5 7021-8 ####[facility]URI [facility] LABCLIA [id number] [place] [address] [facility] Lymphocytes/100 WBC (Bld) 28.2 % Normal [facility] Comment on above: Order Comment: Speci men Type: BLOOD SPECIMENOrdering Facility: [facility] Address: [address] [place] [address] Performed By: #### 5 7021-8 ####[facility] LABCLIA [id number] [place] [address] [place] MCH (RBC) [Entitic mass] 31.4 pg Normal 26.0-34.0 [facility] Comment on above: Order Comment: Speci men Type: BLOOD SPECIMENOrdering Facility: [facility] Address: [address] [place] [address] Performed By: #### 5 7021-8 ####MAMAYURI [facility] LABCLIA [id number] [place] [address] [place] MCHC (RBC) [Mass/Vol] 33.3 g/dL Normal 30.5-36.0 [facility] Comment on above: Order Comment: Speci men Type: BLOOD SPECIMENOrdering Facility: [facility] Address: [address] [place] [address] Performed By: #### 5 7021-8 ####[facility] LABCLIA [id number] [place] [address] [facility] MCV (RBC) [Entitic vol] 94.4 fL Normal 80.0-100.0 [facility] Comment on above: Order Comment: Speci men Type: BLOOD SPECIMENOrdering Facility: [facility] Address: [address] [place] [address] Performed By: #### 5 7021-8 ####[facility] LABCLIA [id number] [place] [address] [place] Monocytes (Bld) [#/Vol] 0.66 10*3/uL Normal <0.87 [facility] Comment on above: Order Comment: Speci men Type: BLOOD SPECIMENOrdering Facility: [facility] Address: [address] [place] [address] Performed By: #### 5 7021-8 ####[facility] LABCLIA [id number] [place] [address] [place] Monocytes/100 WBC (Bld) 9.2 % Normal [facility] Comment on above: Order Comment: Speci men Type: BLOOD SPECIMENOrdering Facility: [facility] Address: [address] [place] [address] Performed By: #### 5 7021-8 ####[facility] LABCLIA [id number] [place] [address] [place] Neutrophils (Bld) [#/Vol] 4.38 10*3/uL Normal 1.45-7.50 [facility] Comment on above: Order Comment: Speci men Type: BLOOD SPECIMENOrdering Facility: [facility] Address: [address] [place] [address] Performed By: #### 5 7021-8 ####[facility] LABCLIA [id number] [place] [address] [place] Neutrophils/100 WBC (Bld) 61.3 % Normal [facility] Comment on above: Order Comment: Speci men Type: BLOOD SPECIMENOrdering Facility: [facility] Address: [address] [place] [address] Performed By: #### 5 7021-8 ####[facility] LABCLIA [id number] [place] [address] [place] Nucleated RBC (Bld) [#/Vol] Normal [facility] Comment on above: Order Comment: Speci men Type: BLOOD SPECIMENOrdering Facility: [facility] Address: [address] [place] [address] Performed By: #### 5 7021-8 ####[facility] LABCLIA [id number] [place] [address] [place] Nucleated RBC/100 WBC (Bld) [Ratio] Normal [facility] Comment on above: Order Comment: Speci men Type: BLOOD SPECIMENOrdering Facility: [facility] Address: [address] [place] [address] Performed By: #### 5 7021-8 ####MAMAYURI MURRAY LABCLIA [id number] [place] [address] [place] Platelet mean volume (Bld) [Entitic vol] 10.1 fL Normal 9.0-12.7 [facility] Comment on above: Order Comment: Speci men Type: BLOOD SPECIMENOrdering Facility: [facility] Address: [address] [place] [address] Performed By: #### 5 7021-8 ####MAMAYURI MURRAY LABCLIA [id number] [place] [address] [place] Platelets (Bld) [#/Vol] 179 10*3/uL Normal 150-400 [facility] Comment on above: Order Comment: Speci men Type: BLOOD SPECIMENOrdering Facility: [facility] Address: [address] [place] [address] Performed By: #### 5 7021-8 ####[facility] LABCLIA [id number] [place] [address] [place] RBC (Bld) [#/Vol] 4.84 10*6/uL Normal 4.20-6.00 [facility] Comment on above: Order Comment: Speci men Type: BLOOD SPECIMENOrdering Facility: [facility] Address: [address] [place] [address] Performed By: #### 5 7021-8 ####[facility] LABCLIA [id number] [place] [address] [place] WBC (Bld) [#/Vol] 7.14 10*3/uL Normal 3.70-11.00 [facility] Comment on above: Order Comment: Speci men Type: BLOOD SPECIMENOrdering Facility: [facility] Address: [address] [place] [address] Performed By: #### 5 7021-8 ####[facility] LABCLIA [id number] [place] [address] [place] CT ABD/PEL W IVCONon 024 CT ABD/PEL W IVCON * * *Final Report* * * DATE OF EXAM: Dec 22 2023 2:41PM [facility] 0530 - CT ABD/PEL W IVCON / PROCEDURE REASON: epigastric pain, history of pancreatitis * * * * Physician Interpretation * * * * EXAMINATION: CT ABDOMEN AND PELVIS WITH IV CONTRAST CLINICAL HISTORY: Abdominal pain. History of pancreatitis. Vomiting. TECHNIQUE: CT of the abdomen and pelvis was performed using standard technique, scanning from just above the dome of the diaphragm to the symphysis pubis. MQ: CTAP_3 Contrast: IV: 100 ml of Omnipaque 350 CT Radiation dose: Integrated Dose-length product (DLP) for this visit = 1144.21 mGy*cm. CT Dose Reduction Employed: Automated exposure control(AEC) and iterative recon COMPARISON: CT abdomen pelvis dated 04/22/2021 RESULT: Liver: Diffuse hepatic steatosis. No suspicious lesions. Biliary: No bile duct dilation. Unremarkable gallbladder. Spleen: No mass. No splenomegaly. Pancreas: The pancreas is diffusely edematous with surrounding fat stranding. A few areas of relative hypoattenuation in the pancreatic head and body are noted. Trace fluid with no measurable collection. Adrenals: No mass. Kidneys: Bilateral renal hypodensities are too small to accurately characterize. No stones or hydronephrosis. GI tract: The proximal stomach is unremarkable. There is thickening/stranding surrounding the distal aspect of the duodenum which is likely reactive. The more distal small bowel is unremarkable with no wall thickening or dilation. Status post appendectomy. Intramural fat deposition in the terminal ileum/cecum which may represent chronic inflammation. Lymph nodes: Multiple prominent peripancreatic lymph nodes which are likely reactive. Mesentery/Peritoneum: Trace likely reactive free fluid Retroperitoneum: No mass. Vasculature: The major vessels including the splenic vein are widely patent. Pelvis: The bladder is decompressed which limits evaluation. Unremarkable prostate. Bones/Soft Tissues: Small fat-containing right inguinal hernia. Lower thorax: Unremarkable. Localizer images: No additional findings. IMPRESSION: Acute pancreatitis. A few small areas of hypoattenuation the pancreatic head and body may represent areas of atrophy or necrosis. No measurable collection. Hepatic steatosis. Home Care Consultant: MORA Transcribe Date/Time: Dec 22 2023 3:01P Dictated by : EVI BROOKS MD This examination was interpreted and the report reviewed and electronically signed by: EVI BROOKS MD on Dec 22 2023 3:16PM EST [id number] Normal [facility] Comprehensive metabolic 2000 panelon 12-22-2023 Albumin [Mass/Vol] 4.8 g/dL Normal 3.9-4.9 [facility] Comment on above: Order Comment: Speci men Type: BLOOD SPECIMENOrdering Facility: [facility] Address: [address] [place] [address] Performed By: #### 5 643-2, 87210-5, 3040-3 ####[facility] LABCLIA [id number] [place] [address] [place] ALP [Catalytic activity/Vol] 149 U/L High 38-113 [facility] Comment on above: Order Comment: Speci men Type: BLOOD SPECIMENOrdering Facility: [facility] Address: [address] [place] [address] Performed By: #### 5 643-2, 82325-3, 3040-3 ####[facility] LABCLIA [id number] [place] [address] [place] ALT [Catalytic activity/Vol] 200 U/L High 10-54 [facility] Comment on above: Order Comment: Speci men Type: BLOOD SPECIMENOrdering Facility: [facility] Address: [address] [place] [address] Performed By: #### 5 643-2, 35199-8, 3040-3 ####[facility] LABCLIA [id number] [place] [address] [place] Anion gap [Moles/Vol] 11 mmol/L Normal 8-15 [facility] Comment on above: Order Comment: Speci men Type: BLOOD SPECIMENOrdering Facility: [facility] Address: [address] [place] [address] Performed By: #### 5 643-2, 57308-5, 0-3 ####[facility] [employer] LABCLIA [id number] [address] [place] AST [Catalytic activity/Vol] 187 U/L High 14-40 [facility] Comment on above: Order Comment: Speci men Type: BLOOD SPECIMENOrdering Facility: [facility] Address: [address] [place] [address] Performed By: #### 5 643-2, 05027-1, 3039-3 ####[facility]AMAYURI [facility] [employer] LABCLIA [id number] [place] [address] [place] Bilirubin [Mass/Vol] 1.5 mg/dL High 0.2-1.3 [facility] Comment on above: Order Comment: Speci men Type: BLOOD SPECIMENOrdering Facility: [facility] Address: [address] [place] [address] Result Comment: Use of this assay is not recommended for patients undergoing treatment with eltrombopag due to the potential for falsely elevated results. Performed By: #### 5 643-2, 45438-6, 0-3 ####[facility] LABCLIA [id number] [place] [address] [place] Calcium [Mass/Vol] 9.9 mg/dL Normal 8.5-10.2 [facility] Comment on above: Order Comment: Speci men Type: BLOOD SPECIMENOrdering Facility: [facility] Address: [address] [place] [address] Performed By: #### 5 643-2, 37769-9, 3040-3 ####[facility] LABCLIA [id number] [place] [address] [place] Chloride [Moles/Vol] 101 mmol/L Normal 98-107 [facility] Comment on above: Order Comment: Speci men Type: BLOOD SPECIMENOrdering Facility: [facility] Address: [address] [place] [address] Performed By: #### 5 643-2, 11002-4, 3040-3 ####[facility] LABCLIA [id number] [place] [address] [place] CO2 [Moles/Vol] 23 mmol/L Normal 22-30 [facility] Comment on above: Order Comment: Speci men Type: BLOOD SPECIMENOrdering Facility: [facility] Address: [address] [place] [address] Performed By: #### 5 643-2, 47147-3, 3040-3 ####[facility] LABCLIA [id number] [place] [address] [place] Creatinine [Mass/Vol] 0.67 mg/dL Low 0.73-1.22 [facility] Comment on above: Order Comment: Speci men Type: BLOOD SPECIMENOrdering Facility: [facility] Address: [address] [place] [address] Result Comment: Use of this assay is not recommended for patients undergoing treatment with phenindione, due to the potential for falsely depressed results. Performed By: #### 5 643-2, 19985-6, 3040-3 ####[facility] [id number] [place] [address] [place] Creatinine and Glomerular filtration rate.predicted panel (S/P/Bld) 123 mL/min/1.73m??? Normal >=60 [facility] Comment on above: Order Comment: Lakshmi espinoza Type: BLOOD SPECIMENOrdering Facility: [facility] Address: [address] [place] [address] Result Comment: Oliva mated Glomerular Filtration Rate (eGFR) is calculated using the 2020 CKD-EPI creatinine equation. This equation utilizes serum creatinine, sex, and age as parameters. The creatinine assay has traceable calibration to isotope dilution-mass spectrometry. Refer to KDIGO guidelines for clinical interpretation. In patients with unstable renal function, e.g. those with acute kidney injury, the eGFR may not accurately reflect actual GFR. Performed By: #### 5 643-2, 28663-7, 3040-3 ####[facility] [id number] [place] [address] [place] Glucose [Mass/Vol] 113 mg/dL High 74-99 [facility] Comment on above: Order Comment: Lakshmi espinoza Type: BLOOD SPECIMENOrdering Facility: [facility] Address: [address] [place] [address] Result Comment: The [place] Diabetes Association (ADA) provides guidance for cutoff values for fasting glucose and random glucose. The ADA defines fasting as no caloric intake for at least 8 hours. Fasting plasma glucose results between 100 to 125 mg/dL indicate increased risk for diabetes (prediabetes). Fasting plasma glucose results greater than or equal to 126 mg/dL meet the criteria for diagnosis of diabetes. In the absence of unequivocal hyperglycemia, results should be confirmed by repeat testing. In a patient with classic symptoms of hyperglycemia or hyperglycemic crisis, random plasma glucose results greater than or equal to 200 mg/dL meet the criteria for diagnosis of diabetes. Reference: Standards of Medical Care in Diabetes 2016, [place] Diabetes Association. Diabetes Care. 2016.39(Suppl 1). Performed By: #### 5 643-2, 51161-3, 3040-3 ####[facility] LABIA [id number] [place] [address] [place] Potassium [Moles/Vol] 4.2 mmol/L Normal 3.7-5.1 [facility] Comment on above: Order Comment: Speci men Type: BLOOD SPECIMENOrdering Facility: [facility] Address: [address] [place] [address] Performed By: #### 5 643-2, 80878-9, 3040-3 ####[facility] LABCLIA [id number] [place] [address] [place] Protein [Mass/Vol] 8.2 g/dL High 6.3-8.0 [facility] Comment on above: Order Comment: Speci men Type: BLOOD SPECIMENOrdering Facility: [facility] Address: [address] [place] [address] Performed By: #### 5 643-2, 87487-6, 0-3 ####[facility] LABCLIA [id number] [place] [address] [place] Sodium [Moles/Vol] 135 mmol/L Low 136-144 [facility] Comment on above: Order Comment: Speci men Type: BLOOD SPECIMENOrdering Facility: [facility] Address: [address] [place] [address] Performed By: #### 5 643-2, 06863-6, 0-3 ####[facility] LABCLIA [id number] [place] [address] [place] Urea nitrogen [Mass/Vol] 7 mg/dL Low 9-24 [facility] Comment on above: Order Comment: Speci men Type: BLOOD SPECIMENOrdering Facility: [facility] Address: [address] [place] [address] Performed By: #### 5 643-2, 06126-9, 0-3 ####[facility] LABCLIA [id number] [place] [address] [place] ED NOTEon 12-22-2023 ED NOTE HNO ID: [id number] Author: WANDA HODGSON, JOSE GUADALUPE Service: Emergency Medicine Author Type: Registered Nurse Type: ED Notes Filed: 12/22/2023 13:29 Note Text: States pain started last night, middle upper abdomen; worse with laying down. Admits to hx pancreatitis; states feels the same as the last time he had a flare up of pancreatitis. Normal [facility] ED NOTE HNO ID: [id number] Author: EDWIGE PERALES, JOSE GUADALUPE Service: Emergency Medicine Author Type: Registered Nurse Type: ED Notes Filed: 12/22/2023 12:31 Note Text: Patient began with abdominal pain last night. Pt states he has been vomiting with abdominal pain . Normal [facility] ED PROV NOTEon 12-22-2023 ED PROV NOTE HNO ID: [id number] Author: HITESH GARZA DO Service: Emergency Medicine Author Type: Physician Type: ED Provider Notes Filed: 12/22/2023 16:03 Note Text: ED Provider Note Patient Name: Roro Valdivia : 1985 SERVICE DATE: 12/22/23 History Patient presents with: Abdominal Pain Patient presents the emergency department for chief complaint of epigastric abdominal pain which feels like his typical pancreatitis. The patient states he had pancreatitis about 4 weeks ago and was admitted to the hospital for about 11 days at [facility]. He states he has not had anything to drink since then other than a couple of beers last weekend. He does not think he is withdrawing. He states he has had multiple bouts of pancreatitis and this feels similar. His pain started in the epigastrium and radiates into the back He had several episodes of emesis which were nonbloody but he feels like he is done vomiting. No reports of fevers or chills, changes in his stool, or other complaints. He denies fevers or chills. He states he has not been eating for the past 5 days though his pain did not start until 2 days ago. When asked why he has not been eating he states he does not typically have an appetite. PAST MEDICAL HISTORY Diagnosis Date - Anxiety - Asthma - Benzodiazepine abuse (HCC) - Cocaine use disorder (HCC) - Depression - Essential hypertension - GERD (gastroesophageal reflux disease) - Methamphetamine use (HCC) - Palpitations - Pancreatitis - Panic attack - Panic disorder without agoraphobia - Severe alcohol use disorder (HCC) - SVT (supraventricular tachycardia) (HCC) - Tourette disorder PAST SURGICAL HISTORY Procedure Laterality Date - APPENDECTOMY HX FAMILY HISTORY Problem Relation Age of Onset - Asthma Mother - other (panic disorder) Mother - Cancer Maternal Grandmother liver - Colon Cancer No Family History Social History Tobacco Use - Smoking status: Every Day Current packs/day: 0.00 Types: Cigarettes Start date: 02/09/2006 Last attempt to quit: 02/09/2015 Years since quittin.8 - Smokeless tobacco: Never - Tobacco comments: 2 cigarettes per day Vaping Use - Vaping status: Never Used Substance and Sexual Activity - Alcohol use: Not Currently Comment: He states he is an alcoholic - Drug use: Not Currently - Sexual activity: Not Currently Partners: Male control/protection: None ALLERGIES No Known Allergies Review of Systems Constitutional: Negative for fever. Gastrointestinal: Positive for abdominal pain. Physical Exam Vitals BP Pulse Temp Temp src Resp SpO2 Weight Height 12/22/23 1233 12/22/23 1228 12/22/23 1228 12/22/23 1228 12/22/23 1228 12/22/23 1228 12/22/23 1228 12/22/23 1228 150/103 (!) 105 37 ?C (98.6 ?F) Temporal 16 96 % 111.1 kg (245 lb) 1.854 m (6' 1) Physical Exam Vitals and nursing note reviewed. Constitutional: General: He is not in acute distress. Appearance: He is not toxic-appearing. HENT: Head: Normocephalic and atraumatic. Eyes: Pupils: Pupils are equal, round, and reactive to light. Cardiovascular: Rate and Rhythm: Normal rate. Pulmonary: Effort: Pulmonary effort is normal. Breath sounds: Normal breath sounds. Abdominal: General: Abdomen is flat. Bowel sounds are normal. There is no distension. Palpations: Abdomen is soft. Tenderness: There is abdominal tenderness in the epigastric area. Hernia: No hernia is present. Musculoskeletal: General: Normal range of motion. Cervical back: Normal range of motion and neck supple. Skin: General: Skin is warm and dry. Neurological: General: No focal deficit present. Mental Status: He is alert. Psychiatric: Mood and Affect: Mood normal. Behavior: Behavior normal. Diagnostic Testing ED Labs Ordered and Reviewed - No data to display Procedures ED Course / Clinical Impression Clinical Impressions as of 12/22/23 1600 Acute pancreatitis with uninfected necrosis, unspecified pancreatitis type MDM / Disposition / Plan Presents to the ED with upper abdominal pain consistent with his pancreatitis. He does feel like this is a mild case. He states he was recently hospitalized and has not been drinking regularly since then. His alcohol level today was less than 11. His pain is well-controlled he was given Toradol and 1.5 of Dilaudid with some Zofran. He does feel like he can go home. We discussed his CT scan findings of possible necrosis on the CT scan. I discussed that I do want him to have early follow-up with his PCP and return if he develops fever or increased/changes in his abdominal pain. He is very comfortable managing his pancreatitis at home and understands that he should do clear liquids for the time being. Request that he follow-up with his PCP. Regarding the CT scan findings of possible necrosis, I did discuss the above with the surgeon on-call. No changes i (more content not included)... Normal [facility] Ethanol SerPl-mCncon 024 Ethanol [Mass/Vol] mg/dL Normal <11 [facility] Comment on above: Order Comment: Lakshmi espinoza Type: BLOOD SPECIMEN [facility] Address: [address] [place] [address] Performed By: #### 5 643-2, 49064-0, 3040-3 #### [facility] [employer] [facility] CLIA [id number] [address] STATES OF [facility] Lipase SerPl-cCncon 12-22-19 24 Lipase [Catalytic activity/Vol] 70 U/L High 16-61 [facility] Comment on above: Order Comment: Lakshmi espinoza Type: BLOOD SPECIMENOrdering Facility: [facility] Address: [address] [place] [address] Performed By: #### 5 643-2, 26295-4, 3040-3 ####[facility] LABCLIA [id number] [place] [address] [place] No Panel InformationOrdered By: Mukund Tracy on 12-17-2023 Case Report Surgical Pathology Case: [id number] Authorizing Provider: Hari Kline MD Collected: 12/14/2023 1350 Ordering Location: [facility] Endoscopy Received: 12/14/2023 1450 Pathologist: Mukund Tracy Jr., MD Specimens: A) - Gastric Antrum, gastritis, r/o h. pylori B) - Esophagus, Distal, esophagitis [employer] Phone: Clinical Information w0ojfRPjPAWojNQxVZk wM1x sqgQcIPWzfKUlC5XlqxjkQR saWY8kTL8goSynxMOzaXBdE ZRyBpYss6aul369cQMpq5sq AOOAHMzvWETRJAv8uFyiM84 jq8H0XfzrA9nuHOFoTAyrEQ LaSNdqtDNrZOx5ZSZrgNLfs uNeTyHkGJSafFPnfCQ5KUYe PO8qpcyvRDxxCJzxFLBsnkL 3SLJlfKIlH2YjINEhQI8amw peOWU5ZJthPSIoSJE4BwOiP XEuh9Jkmlp2UrOdxDHuWLpr bGFpblxmczIwXGNmMSBIZW1 ddQAkCGYolaAuZfE1qgmqj0 ikPMS1kT7mz1c6BW4pKkjfZ wCmZ4vDRF0cOQ3ROH3hA7Aa ICBccGFyfQ== [employer] Phone: Disclaimer y1opiVEdEKKgiSHiDzEt MDA yPAQmp8bkJORsnQNsHzIpVv NcZnRuYmpcdWMxXGRlZmYwe 3yll765fQWtu3xfKADjSfH9 pHUqIWFiJ36wZUUEP314IZY gCJemb2hya5GvMELmuQDjk9 C3TXQQPFueCTTBRUs2mDzhF 08ef3G4ReksU2ipKSMqQTNf Q4TjFV5pISKdExp3GMS4ONJ 6IJLbUUDjX5QtJH4hTBCfmV MeMKu9g8sptSghJXFxQUA6q 6inDTlqqnEuXW7wwy3fqMa1 m0lcmsTqMRPyCCBomLRURZU zC1MaqJkqNh1uoBv5fYgpMy ijXLI2Hvg3KX9twi06ouz1o HowXXKaxtwpTlW4BJohENEv yjewJCg5VFlnBKNibJQ9OGO egAEuQ5NmYZEhDU2axvz0XZ S0UMsxKAOqLkZ2TTKqmTDeJ MLzzJvpUBrzm918BPQ0UxLx SJ0fA9Wqe0C7oD3tzPIzVRH snDMoNcWhXCDvrc2coOGtNY bdr7RiVAA9weK7wMRvhIMmS THzOM60Wwvzr4CsVvziTUR0 WAHfvuRpn7Jcr6oxZnZpacJ lI7bhA9ZjHEHkFTIdWRSqIc UbstFkn2Viu7UnpUJzwAo9p 7cnLPXeWLWmbEdpm6moUWY4 WXRnY0B8wSKqo9lkGRarXTK dhKD2ihB7CILtzXLvN0AoyK 6wKJDwQN8ihzs9s1uhFJG1G RbcCBWgSxI0miP0UEHvjKGk UHVbcKhuKAelv169PPE2FqW lMTRqh5JeA2BgrDefZ28njC lwF01pIOIajUwblX7laPncd T3sFpNdXyEsDMpbzHipbQYx mzugGAnaroA8RZgwnyveTYQ uZDxpP7bxKfVrBQUsbRykKI fzp3CyQOIcYWDzJCQdOCemA 1ugrI8elhseBVmcLYTjjFxy s8hmEjToiFE5VB7worIbNBQ emLwkkaX3leOroSjveH4tbH 2oqAqiuK0moYRrrPA3gzwgQ GluIHNpdHUgaHlicmlkaXph hQkiiguuoP1bULF4kSElHLA 4nAZpPAOlOAXvJCHyiS53bx 7vwGOvbiNbQ1GuM2IvvTQat NxaGbnzdENefNBcCt1jzTVt JV6fKEPduAUuG1IpNW2dIWG hclxwYXIgVGhlIHVzZSBvZi BbdrGdg7TwyV5fMUDmZECgD R92tfJmknR8kYLdKKJsmxTa dGVzdHMgaXMgcmVndWxhdGV wQHDuXIUpYJJbHRj9yANss5 RjJ9gxgOYuxmSnL5AzkZOsQ ITCPN2xUHpqm4KlxTOlyHDx t9HpGYVxFTFplK6cJTKeKU7 cJKWmFLzaWSVozbEhxg3bjw VuVDMkAQMmQ7SsfclbhChzw fYsUGPezk9kpoIrPAR5YOXn ZSBjbGluaWNhbCBsYWJvcmF 7a2TuJMIts3QnZ5BqyLHcMS UntTAyRJL9i1YpwV4pKXmwl VMdHMPsUA4vyWPcYBIyYEFd ZWFyZWQgYnkgdGhlIFVTIEZ ic6GtDK3oAXCjhNecYZNleC 2pd0WeUSUxw99qWRSHIPnpU FRoZSBGREEgaGFzIGRldGVy bWluZWQgdGhhdCBzdWNoIGN fCFDcFR6aQNJenuYldYZoa0 UklOSvrsFec1KqmhKxJVOkB BM4NpGvrPTiRQXoduCUzUen pF8ybN7jr7RsxB7pCLbtgjC lvVNgGy9gpEWzDB0gQKBxml FmZmluIGVtYmVkZGVkIHRpc 4J1MT0oLQZocb3udathiPIf oL5dvGHyzsZvER1aWE4uE2L 6yYAyPTAbxwQxp8yjTLr2qY StRTMutVRzbDYxBnztJAZ4N QLxCSW2rtJyvvLfUAOxxHsf bYF1lRDhYGBqCZRcTZViMF3 0F4Wwe2HwF1pnYH58RWRiAL CqBMJtwyVap5ywBSPxa5xqQ KDupUMtF9TwWQDuuOFnhiig UeOkBGR8HXWsZTE0dQWoIPL zT3HytOEbjNSoyJ50CJ4grM D0OA4sTMR7GXrjaU7pNsIKz B40lm6wtDI5z9CjGN0sI6Yz OZTic0I3iwTbUUVvMS3lpYL iZWVuIHZhbGlkYXRlZCBvbi IcYSErgPSeKynbAPV6gUDra VMnUzLWTCA2rWExBZItl5Aq ZCBiZSBpbnRlcnByZXRlZCB 7eREtMUIxvYWko84aR8l6GJ 6rgVkdHAOoqSDwGHMzf6Doh AZgjWn4pYPpEvXoNVpqQSCy ZDdbpQi1iYE4QD4hAUNoV9P bN6prrLZtJSXzMJLvsVRnbl 5ccGFyfQ== [facility] Work Phone: Gross Description w1gpyYTdQSEpkEStEWzc M1x egfLxWHYaoMHmN7FnhoagWW joGT5cBL5wxWybrMQgwLQsL BAiArPnu5dyo970uFRyv3ce CKOOUJgqAVSIVYk0tBahN90 tn7Y7KmlpK89ciGRrSFR1DZ DhCUMswTKnLQSbCZM5BZBih DQkO3qmOAOpVA8bxidzZXxq RGleMURpuBG2RCCohFMqY0A dVCDxZGchLXJqkjw5RsLaCy 9vdGVyeTcyMFxwYXJkXHBsY FagKTDmFmMtOF5wfGScEOXh P4PdlqSfKXulWQKsvy9urLp uIGxhYmVsZWQgICJhbnRydW 4gIUKzYRK0knG9KU8dsLevu lX8dQCazLNrKwHfL30iesPi KUJdINKucGAoh7SnXHNtBdZ wXB5iAEOdD12zZFRZpGRmz2 RmD4dvME3jsPGcFI40vPHnr Iuzb0EioMm6nSJtBJjkYE4y VGBrYGFfAYQ1BX6hgRXrNYT tkfPVLtf8BZRvEzDfKNj5PK NwsD3kPp1szDIybG9oxAEeT EacTYVmOaEgy7OwjLIsa91g hZFrbHUiOTXbVKK5rBMwTIN 3CE5wsKemzjN2hTJfgYBdUs NcS49iamHdFDWcqkpspmvxv V2iw8x6OYVigw3kYGHnWxEu RHNwETBzfY7jMTShFGMnkHD poU0xwvOgeuXvmmTciyJhiI JfaADhkEL2ZBRceG0yp59yQ UWxy9YomBMmZdStQLLypj6= [facility] [employer] Work Phone: Pathologist Interpretation Location [facility], [address] [place] [address], [facility] [address], CLIA: [id number]; Joint Commission: HCO [id number]; CAP: [id number] [employer] Phone: Pathology report final diagnosis Narrative j3gawMMpLDMedVKrEGwjN9j acjGcVMGuiPBnK8LmoqtkKV ylQH6rDQ8ehLojlREtzOGnL NVvVxDbj0xbx202sCUor4kh ZYLTDCywGNEPBFy2fIwhD25 oo2M6ZjdzI58dpDZkJMC7HZ FvNEWlxXYfJHKbKWZ1LOYki LTwZ1cyZKVtQB7qzetzCMna UDwzJFDffBR2VRQphKXqI5L nUICzOZonGTKrtux1WwFmPu 9vdGVyeTcyMFxwYXJkXHBsY WkgUYPdPeXjUE5qOXQKQ19T V7lvFQYYXGZKGFezTtpOZEC ZXGVuZGFzaCBNSUxEIFRPIE 5UOGRJRWCVMRBCBm8FNRLuO HbXIURRXCXBUUzDA5RLMRRI KvMFRnCtYR2TIGMTQS8KKBN HIYOEMJnUK9bCZTPkzwrkSA JnY79eaUTeuUdxLS8rvO7bb K2mhKrouG8uhYRtmOCitEZw nLEhliYji5DmYAJxxKNqPkZ ofYFuVGY6jE9xsLHkuxUhKP iiuLw9TA2gOVQyVUbhvXHjz 0sfl7BfI4dnaTenUZfvx6Ky iF4jEh9oMRB3BbNwbkYdJUs yaNd6YO9mCW3zK2Q1gVVfKR AwlyHvqLUmmDVleDQhf7Fjd OVwzGwuQV6vzJ4geLJbYALr hdVKFzXsDLATLUnFR9SDOKW ICVNXNDjrGLJIH4UWUPbzij Elu3gvS1ASIA4LKTMhOCTNA 1NBIFdJVEggRVBJVEhFTElB JHKYBVMNEeHOUP5YXVZRJOY QT2WKJIIANaWJOM1WNCNKZ0 1soQImWMIqkvQWb02pFW98O hUDqH70ql3fuVR6n4JyYF5b C0XvPSX0BAxfqrZwg7MgFCJ LHCDdNG2vRGzAFs0bAHGhKG PjLHajaPr4GR1hBXXTPxUmn IRgakXeWx8wBIK8wcdmyAXv fasluzmkcZIgBCEmQP5dZ4E 0aXZlLiAgTmVnYXRpdmUgZm 9tOYjnnXIegYkfIGkncLO3C DLbMTXmVMspIEmujSuxs6wo CTBzmyJgCJrkI37fdaP4Ucj wYXJ9 [facility] Work Phone: [facility] Work Phone: Hemoglobin (Bld) [Mass/Vol]o n 12-16-2023 Hematocrit (Bld) [Volume fraction] 37.4 % Low 40.0 - 52.0 % [facility] Interpretation and review of laboratory results Abnormal [facility] Hepatic function 2000 panelo n 12-16-2023 Albumin [Mass/Vol] 3.9 g/dL 3.5 - 5.0 g/dL [facility] ALP [Catalytic activity/Vol] 111 U/L 38 - 126 U/L [facility] ALT [Catalytic activity/Vol] 80 U/L High 0 - 49 U/L [facility] AST [Catalytic activity/Vol] 84 U/L High 15 - 46 U/L [facility] Bilirubin [Mass/Vol] 1 mg/dL 0.2 - 1 .3 mg/dL [facility] Bilirubin.conjugated [Mass/Vol] 0 mg/dL 0.0 - 0.3 mg/dL [facility] Interpretation and review of laboratory results Abnormal [facility] Protein [Mass/Vol] 6.7 g/dL 6.3 - 8.2 g/dL [facility] - Hematology and Cell countson 12-16-2023 Hemoglobin (Bld) [Mass/Vol] 12.1 g/dL Low 13.0 - 18.0 g/dL [facility] CBC panel Auto (Bld)Ordered By: Bandar Joe on 12-15-2023 Erythrocyte distribution width (RBC) [Ratio] 13.9 % 11.5 - 15.0 % [facility] Hematocrit (Bld) [Volume fraction] 34.1 % Low 40.0 - 52.0 % [facility] Hemoglobin (Bld) [Mass/Vol] 11.3 g/dL Low 13.0 - 18.0 g/dL [facility] Interpretation and review of laboratory results Abnormal [facility] MCH (RBC) [Entitic mass] 31 pg 26.0 - 34.0 pg [facility] MCHC (RBC) [Mass/Vol] 33.1 % 30.5 - 36.0 % [facility] MCV (RBC) [Entitic vol] 93.4 fL 77.0 - 99.0 fL [facility] Platelet mean volume (Bld) [Entitic vol] 10.1 fL 9.0 - 12.7 fL [facility] Platelets (Bld) [#/Vol] 246 10*3/uL 140 - 440 10*3/uL [facility] RBC (Bld) [#/Vol] 3.65 10*6/uL Low 4.40 - 5.9 0 10*6/uL [facility] WBC (Bld) [#/Vol] 3.9 10*3/uL 3.6 - 10.7 10*3/uL [facility] Comprehensive metabolic 1998 panelOrdered By: Megha Lopez on 12-15-2023 Albumin [Mass/Vol] 3.7 g/dL 3.5 - 5.0 g/dL [facility] ALP [Catalytic activity/Vol] 116 U/L 38 - 126 U/L [facility] ALT [Catalytic activity/Vol] 81 U/L High 0 - 49 U/L [facility] Anion gap [Moles/Vol] 10 mmol/L 3 - 13 mmol/L [facility] AST [Catalytic activity/Vol] 70 U/L High 15 - 46 U/L [facility] Bilirubin [Mass/Vol] 1.3 mg/dL 0.2 - 1 .3 mg/dL [facility] Calcium [Mass/Vol] 9.1 mg/dL 8.4 - 10. 4 mg/dL [facility] Chloride [Moles/Vol] 104 mmol/L 98 - 10 7 mmol/L [facility] CO2 [Moles/Vol] 22 mmol/L 22 - 30 mmol/L [facility] Creatinine [Mass/Vol] 0.61 mg/dL Low 0.66 - 1.25 mg/dL [facility] GFR/1.73 sq M.predicted (S/P/Bld) [Vol rate/Area] - PINF [facility] Comment on above: Calculation based on the Chronic Kidney Disease Epidemiology Collaboration (CKD-EPI) equation refit without adjustment for race Glucose [Mass/Vol] 101 mg/dL High 70 - 100 mg/dL [facility] Interpretation and review of laboratory results Abnormal [facility] Potassium [Moles/Vol] 3.5 mmol/L 3.5 - 5.1 mmol/L [facility] Protein [Mass/Vol] 6.5 g/dL 6.3 - 8.2 g/dL [facility] Sodium [Moles/Vol] 136 mmol/L 135 - 145 mmol/L [facility] Urea nitrogen [Mass/Vol] 4 mg/dL Low 9 - 20 mg/dL [facility] Hemoglobin (Bld) [Mass/Vol]o n 12-14-2023 Hematocrit (Bld) [Volume fraction] 38.1 % Low 40.0 - 52.0 % [facility] Interpretation and review of laboratory results Abnormal [facility] - Hematology and Cell countson 12-14-2023 Hemoglobin (Bld) [Mass/Vol] 12.6 g/dL Low 13.0 - 18.0 g/dL [facility] XR Chest Single viewon 12-13 Lungs clear with no acute infiltrate or effusion. Report Dictated on Electronically Signed By: Argelia Mathias MD Electronically Signed Date/Time: 12/14/2023 10:04 AM [facility] [employer] Patient Name: RORO CLAIRE : 1985 Exam Date/Time: 12/14/2023 09:59 Procedure: XR CHEST 1 VIEW Ordering Provider: ESPOSITO VENKATESH Reason For Exam: Cough CLINICAL INDICATION: Cough COMPARISON: 11/19/2023 TECHNIQUE: Single portable AP radiograph of the chest. FINDINGS: LUNGS/PLEURA:Clear with no acute infiltrate or effusion. No pneumothorax. The trachea is midline. MEDIASTINUM:Heart size and mediastinal contours are normal. VASCULARITY: Normal BONES:Unremarkable SUPPORT LINES: None OTHER: [facility] [employer] Alyse Mathias MD - 12/14/2023 Patient Name: RORO VALDIVIA : 1985 [facility]#: [id number] Exam Date/Time: 12/14/2023 09:59 Procedure: XR CHEST 1 VIEW Ordering Provider: ESPOSITO VENKATESH Reason For Exam: Cough CLINICAL INDICATION: Cough COMPARISON: 11/19/2023 TECHNIQUE: Single portable AP radiograph of the chest. FINDINGS: LUNGS/PLEURA:Clear with no acute infiltrate or effusion. No pneumothorax. The trachea is midline. MEDIASTINUM:Heart size and mediastinal contours are normal. VASCULARITY: Normal BONES:Unremarkable SUPPORT LINES: None OTHER: IMPRESSION: Lungs clear with no acute infiltrate or effusion. Report Dictated on Electronically Signed By: Argelia Mathias MD Electronically Signed Date/Time: 12/14/2023 10:04 AM EST [facility] Radiology Study observation (narrative) [facility] XR Chest Single viewOrdered By: Alyse Mathias on 12-14-2023 [facility] Work Phone: Basic metabolic 1998 panelon 12-13-2023 Anion gap [Moles/Vol] 16 mmol/L High 3 - 13 mmol/L [facility] Calcium [Mass/Vol] 8.9 mg/dL 8.4 - 10. 4 mg/dL [facility] Chloride [Moles/Vol] 106 mmol/L 98 - 10 7 mmol/L [facility] CO2 [Moles/Vol] 22 mmol/L 22 - 30 mmol/L [facility] Creatinine [Mass/Vol] 0.71 mg/dL 0.66 - 1.25 mg/dL [facility] GFR/1.73 sq M.predicted (S/P/Bld) [Vol rate/Area] - PINF [facility] Comment on above: Calculation based on the Chronic Kidney Disease Epidemiology Collaboration (CKD-EPI) equation refit without adjustment for race Glucose [Mass/Vol] 110 mg/dL High 70 - 100 mg/dL [facility] Interpretation and review of laboratory results Abnormal [facility] Potassium [Moles/Vol] 3.9 mmol/L 3.5 - 5.1 mmol/L [facility] Sodium [Moles/Vol] 145 mmol/L 135 - 145 mmol/L [facility] Urea nitrogen [Mass/Vol] 6 mg/dL Low 9 - 20 mg/dL [facility] CBC W Auto Differential pane l (Bld)Ordered By: Brianda Feliciano on 12-13-2023 Erythrocyte distribution width (RBC) [Ratio] 14.4 % 11.5 - 15.0 % [facility] Hematocrit (Bld) [Volume fraction] 43.7 % 40.0 - 52.0 % [facility] Hemoglobin (Bld) [Mass/Vol] 14.3 g/dL 13.0 - 18.0 g/dL [facility] Interpretation and review of laboratory results Abnormal [facility] MCH (RBC) [Entitic mass] 30.8 pg 26.0 - 34.0 pg [facility] MCHC (RBC) [Mass/Vol] 32.7 % 30.5 - 36.0 % [facility] MCV (RBC) [Entitic vol] 94 fL 77.0 - 99.0 fL [facility] Platelet mean volume (Bld) [Entitic vol] 10.2 fL 9.0 - 12.7 fL [facility] Platelets (Bld) [#/Vol] 423 10*3/uL 140 - 440 10*3/uL [facility] RBC (Bld) [#/Vol] 4.65 10*6/uL 4.40 - 5.9 0 10*6/uL [facility] WBC (Bld) [#/Vol] 12.1 10*3/uL High 3.6 - 10.7 10*3/uL [facility] Comprehensive metabolic 1998 panelon 12-13-2023 Albumin [Mass/Vol] 4.9 g/dL 3.5 - 5.0 g/dL [facility] ALP [Catalytic activity/Vol] 171 U/L High 38 - 126 U/L [facility] ALT [Catalytic activity/Vol] 141 U/L High 0 - 49 U/L [facility] Anion gap [Moles/Vol] 23 mmol/L High 3 - 13 mmol/L [facility] AST [Catalytic activity/Vol] 186 U/L High 15 - 46 U/L [facility] Bilirubin [Mass/Vol] 0.9 mg/dL 0.2 - 1 .3 mg/dL [facility] Calcium [Mass/Vol] 9.5 mg/dL 8.4 - 10. 4 mg/dL [facility] Chloride [Moles/Vol] 103 mmol/L 98 - 10 7 mmol/L [facility] CO2 [Moles/Vol] 20 mmol/L Low 22 - 30 mmol/L [facility] Creatinine [Mass/Vol] 0.6 mg/dL Low 0.66 - 1.25 mg/dL [facility] GFR/1.73 sq M.predicted (S/P/Bld) [Vol rate/Area] - PINF [facility] Comment on above: Calculation based on the Chronic Kidney Disease Epidemiology Collaboration (CKD-EPI) equation refit without adjustment for race Glucose [Mass/Vol] 116 mg/dL High 70 - 100 mg/dL [facility] Interpretation and review of laboratory results Abnormal [facility] Potassium [Moles/Vol] 4 mmol/L 3.5 - 5.1 mmol/L [facility] Protein [Mass/Vol] 8.3 g/dL High 6.3 - 8.2 g/dL [facility] Sodium [Moles/Vol] 145 mmol/L 135 - 145 mmol/L [facility] Urea nitrogen [Mass/Vol] 5 mg/dL Low 9 - 20 mg/dL [facility] Ethanol (Bld) [Mass/Vol]Orde red By: Dari Paul on 12-13-2023 Ethanol [Mass/Vol] 0.435 g/dL Critically high 0.000 - 0.010 g/dL [facility] Interpretation and review of laboratory results Abnormal [facility] Laboratory - Chemistry and C hemistry - challengeon 12-13-2023 Lipase [Catalytic activity/Vol] 78 U/L 23 - 300 U/L [facility] Laboratory - Drug toxicology Ordered By: Casey Sloan on 12-13-2023 Amphetamines Screen method >1000 ng/mL Ql (U) Negative [facility] Barbiturates Screen method >200 ng/mL Ql (U) Negative [facility] Benzodiazepines Ql (U) Negative [facility] Methadone Screen Ql (U) Negative [facility] Opiates Screen Ql (U) Negative [facility] oxyCODONE Ql (U) Negative [facility] Phencyclidine Ql (U) Negative [facility] Laboratory - Microbiology an d Antimicrobial susceptibilityOrdered By: Lisa England on 12-13-2023 SARS-CoV-2 (COVID-19) Ag IA.rapid Ql (Resp) Negative Negative [facility] Comment on above: A negative result do es not rule out the possibility of SARS-CoV-2 infection. NAAT-based methods should be considered for symptomatic patients presenting greater than seven days after onset of symptoms. Method: Lateral flow immunoassay. Fact sheets for healthcare providers and patients can be found at the following sites: https://www.[employer].com.gov/media/312831/download https://www.[employer].com.gov/media/899096/download Lipase [Catalytic activity/V ol]on 12-13-2023 Interpretation and review of laboratory results Normal [facility] Manual differential performe d Ql (Bld)Ordered By: Maria Isabel Auguste on 12-13-2023 Basophils (Bld) [#/Vol] 0.1 10*3/uL 0.0 - 0.2 10*3/uL [facility] Basophils Manual 1 [facility] Basophils/100 WBC (Bld) 1 % 0 - 2 % [facility] Cells Counted Total (Bld) [#] 100 {cells} [facility] Differential Method Manual differential performed [facility] Interpretation and review of laboratory results Abnormal [facility] Leukocyte morphology finding Nom (Bld) Normal [facility] Lymphocytes (Bld) [#/Vol] 8.1 10*3/uL High 1.0 - 4.3 10*3/uL [facility] Lymphocytes Manual 67 [facility] Lymphocytes/100 WBC (Bld) 67 % High 15 - 45 % [facility] Monocytes (Bld) [#/Vol] 0.4 10*3/uL 0.0 - 0.9 10*3/uL [facility] Monocytes Manual 3 [facility] Monocytes/100 WBC (Bld) 3 % Low 5 - 13 % [facility] Neutrophils (Bld) [#/Vol] 3.5 10*3/uL 1.8 - 7.0 10*3/uL [facility] Neutrophils Manual 29 [facility] Platelet morphology finding Nom (Bld) Normal [facility] RBC morphology finding Nom (Bld) Normal [facility] Segmented neutrophils/100 WBC (Bld) 29 % Low 38 - 82 % [facility] WBC corrected for nucl RBC (Bld) [#/Vol] 12.1 10*3/uL High 3.6 - 10.7 10*3/uL [facility] No Panel Informationon 12-12 P [place] 53 degrees [facility] ME Interval 148 ms [facility] QRS [place] -11 degrees [facility] QRSD Interval 97 ms [facility] QT Interval 373 ms [facility] QTC Interval 459 ms [facility] T Wave [place] -5 degrees [facility] Sinus rhythm LVH by voltage Borderline T abnormalities, inferior leads Electronically Signed On 12-13-2023 13:12:41 EST by Idris Danielson CV Idris Galvan MD - 12/13/2023 IMPRESSION: Sinus rhythm LVH by voltage Borderline T abnormalities, inferior leads Electronically Signed On 12-13-2023 13:12:41 EST by Idris Danielson [facility] No Panel InformationOrdered By: Casey Sloan on 12-13-2023 COCAINE METAB. SCREEN Negative [facility] The expected value f or all of the drugs listed above is Negative. The following drugs or drug groups have been screened for by Immunoassay at the following thresholds: Amphetamine class (1000 ng/mL) Barbiturates (200 ng/mL) Benzodiazepines (200 ng/mL) Cocaine (300 ng/mL) Methadone (300 ng/mL) Opiates (300 ng/mL) Oxycodone (100 ng/mL) PCP (25 ng/mL) NOTE: These results are for medical treatment only. Analysis performed using non-forensic procedures. POSITIVE results are NOT confirmed by a more specific alternative method unless requested. If confirmation is needed, request confirmation under separate order. [facility] SARS-CoV-2 (COVID-19) Ag IA. rapid Ql (Resp)Ordered By: Lisa England on 12-13-2023 Interpretation and review of laboratory results Normal [facility] Urinalysis complete panel (U )on 12-13-2023 Bacteria LM.HPF (Urine sed) [#/Area] Few Abnormal Negative /HPF [facility] Bilirubin Ql (U) Negative Negative mg/dL [facility] Clarity (U) Clear Clear [facility] Color (U) Light Yellow Lt. Yellow [facility] Epithelial cells.squamous LM.HPF (Urine sed) [#/Area] Negative [facility] Glucose Ql (U) Normal Normal (<70) mg/dL [facility] Hemoglobin Ql (U) 0.03 mg/dL Abnormal Negative [facility] Interpretation and review of laboratory results Abnormal [facility] Ketones (U) [Mass/Vol] Negative Negat chan mg/dL [facility] Leukocyte esterase Test strip Ql (U) Negative Negative [place]/uL [facility] Nitrite Ql (U) Negative Negative [facility] pH (U) 6.5 [pH] 5.0 - 8.0 pH [facility] Protein (U) [Mass/Vol] Negative Negat chan mg/dL [facility] RBC LM.HPF (Urine sed) [#/Area] 0-2 [facility] Specific gravity (U) [Rel density] 1.004 Low 1.005 - 1.030 [facility] Urobilinogen (U) [Mass/Vol] Normal Normal (0-1) mg/dL [facility] WBC LM.HPF (Urine sed) [#/Area] 0-2 [facility] Vital signson 12-13-2023 Heart rate 91 /min bpm [facility] CBC W Auto Differential pane l (Bld)on 11-28-2023 Basophils (Bld) [#/Vol] 0.1 10*3/uL 0.0 - 0.2 10*3/uL [facility] Basophils/100 WBC (Bld) 0.7 % 0.0 - 2.0 % [facility] Eosinophils (Bld) [#/Vol] 0.1 10*3/uL 0.0 - 0.5 10*3/uL [facility] Eosinophils/100 WBC (Bld) 1.2 % 0.0 - 6.0 % [facility] Erythrocyte distribution width (RBC) [Ratio] 16.0 % High 11.5 - 15.0 % [facility] Hematocrit (Bld) [Volume fraction] 35.1 % Low 40.0 - 52.0 % [facility] Hemoglobin (Bld) [Mass/Vol] 11.6 g/dL Low 13.0 - 18.0 g/dL [facility] Immature granulocytes (Bld) [#/Vol] 0.2 10*3/uL High NINF - 0.1 10*3/uL [facility] Immature granulocytes/100 WBC (Bld) 2.1 % High 0.0 - 2.0 % [facility] Interpretation and review of laboratory results Abnormal [facility] Lymphocytes (Bld) [#/Vol] 2.3 10*3/uL 1.0 - 4.3 10*3/uL [facility] Lymphocytes/100 WBC (Bld) 25.5 % 15.0 - 45.0 % [facility] MCH (RBC) [Entitic mass] 30.9 pg 26.0 - 34.0 pg [facility] MCHC (RBC) [Mass/Vol] 33.0 % 30.5 - 36.0 % [facility] MCV (RBC) [Entitic vol] 93.4 fL 77.0 - 99.0 fL [facility] Monocytes (Bld) [#/Vol] 0.6 10*3/uL 0.0 - 0.9 10*3/uL [facility] Monocytes/100 WBC (Bld) 6.9 % 5.0 - 13.0 % [facility] Neutrophils (Bld) [#/Vol] 5.6 10*3/uL 1.8 - 7.5 10*3/uL [facility] Neutrophils/100 WBC (Bld) 63.6 % 38.0 - 82.0 % [facility] Nucleated RBC/100 WBC (Bld) [Ratio] 0.0 % [facility] Platelet mean volume (Bld) [Entitic vol] 10.0 fL 9.0 - 12.7 fL [facility] Platelets (Bld) [#/Vol] 340 10*3/uL 140 - 440 10*3/uL [facility] RBC (Bld) [#/Vol] 3.76 10*6/uL Low 4.40 - 5.9 0 10*6/uL [facility] WBC (Bld) [#/Vol] 8.9 10*3/uL 3.6 - 10.7 10*3/uL [facility] Comprehensive metabolic 1998 panelon 11-28-2023 Albumin [Mass/Vol] 3.6 g/dL 3.5 - 5.0 g/dL [facility] ALP [Catalytic activity/Vol] 240 U/L High 38 - 126 U/L [facility] ALT [Catalytic activity/Vol] 218 U/L High 0 - 49 U/L [facility] Anion gap [Moles/Vol] 9 mmol/L 3 - 13 mmol/L [facility] AST [Catalytic activity/Vol] 236 U/L High 15 - 46 U/L [facility] Bilirubin [Mass/Vol] 1.3 mg/dL 0.2 - 1 .3 mg/dL [facility] Calcium [Mass/Vol] 8.6 mg/dL 8.4 - 10. 4 mg/dL [facility] Chloride [Moles/Vol] 104 mmol/L 98 - 10 7 mmol/L [facility] CO2 [Moles/Vol] 21 mmol/L Low 22 - 30 mmol/L [facility] Creatinine [Mass/Vol] 0.46 mg/dL Low 0.66 - 1.25 mg/dL [facility] GFR/1.73 sq M.predicted (S/P/Bld) [Vol rate/Area] - PINF [facility] Glucose [Mass/Vol] 129 mg/dL High 70 - 100 mg/dL [facility] Interpretation and review of laboratory results Abnormal [facility] Potassium [Moles/Vol] 3.9 mmol/L 3.5 - 5.1 mmol/L [facility] Protein [Mass/Vol] 6.8 g/dL 6.3 - 8.2 g/dL [facility] Sodium [Moles/Vol] 135 mmol/L 135 - 145 mmol/L [facility] Urea nitrogen [Mass/Vol] 5 mg/dL Low 9 - 20 mg/dL [facility] Hepatic function 2000 panelo n 11-28-2023 Albumin [Mass/Vol] 3.8 g/dL 3.5 - 5.0 g/dL [facility] ALP [Catalytic activity/Vol] 249 U/L High 38 - 126 U/L [facility] ALT [Catalytic activity/Vol] 231 U/L High 0 - 49 U/L [facility] AST [Catalytic activity/Vol] 240 U/L High 15 - 46 U/L [facility] Bilirubin [Mass/Vol] 1.3 mg/dL 0.2 - 1 .3 mg/dL [facility] Bilirubin.conjugated [Mass/Vol] 0.0 mg/dL 0.0 - 0.3 mg/dL [facility] Interpretation and review of laboratory results Abnormal [facility] Protein [Mass/Vol] 7.1 g/dL 6.3 - 8.2 g/dL [facility] Albumin [Mass/Vol] 3.3 g/dL Low 3.5 - 5.0 g/dL [facility] ALP [Catalytic activity/Vol] 262 U/L High 38 - 126 U/L [facility] ALT [Catalytic activity/Vol] 217 U/L High 0 - 49 U/L [facility] AST [Catalytic activity/Vol] 234 U/L High 15 - 46 U/L [facility] Bilirubin [Mass/Vol] 1.3 mg/dL 0.2 - 1 .3 mg/dL [facility] Bilirubin.conjugated [Mass/Vol] 0.0 mg/dL 0.0 - 0.3 mg/dL [facility] Interpretation and review of laboratory results Abnormal [facility] Protein [Mass/Vol] 6.6 g/dL 6.3 - 8.2 g/dL [facility] CBC W Auto Differential pane l (Bld)on 11-27-2023 Basophils (Bld) [#/Vol] 0.1 10*3/uL 0.0 - 0.2 10*3/uL [facility] Basophils/100 WBC (Bld) 0.6 % 0.0 - 2.0 % [facility] Eosinophils (Bld) [#/Vol] 0.1 10*3/uL 0.0 - 0.5 10*3/uL [facility] Eosinophils/100 WBC (Bld) 1.3 % 0.0 - 6.0 % [facility] Erythrocyte distribution width (RBC) [Ratio] 15.8 % High 11.5 - 15.0 % [facility] Hematocrit (Bld) [Volume fraction] 34.8 % Low 40.0 - 52.0 % [facility] Hemoglobin (Bld) [Mass/Vol] 11.6 g/dL Low 13.0 - 18.0 g/dL [facility] Immature granulocytes (Bld) [#/Vol] 0.4 10*3/uL High NINF - 0.1 10*3/uL [facility] Immature granulocytes/100 WBC (Bld) 4.6 % High 0.0 - 2.0 % [facility] Interpretation and review of laboratory results Abnormal [facility] Lymphocytes (Bld) [#/Vol] 2.0 10*3/uL 1.0 - 4.3 10*3/uL [facility] Lymphocytes/100 WBC (Bld) 23.4 % 15.0 - 45.0 % [facility] MCH (RBC) [Entitic mass] 30.9 pg 26.0 - 34.0 pg [facility] MCHC (RBC) [Mass/Vol] 33.3 % 30.5 - 36.0 % [facility] MCV (RBC) [Entitic vol] 92.6 fL 77.0 - 99.0 fL [facility] Monocytes (Bld) [#/Vol] 0.7 10*3/uL 0.0 - 0.9 10*3/uL [facility] Monocytes/100 WBC (Bld) 8.4 % 5.0 - 13.0 % [facility] Neutrophils (Bld) [#/Vol] 5.2 10*3/uL 1.8 - 7.5 10*3/uL [facility] Neutrophils/100 WBC (Bld) 61.7 % 38.0 - 82.0 % [facility] Nucleated RBC/100 WBC (Bld) [Ratio] 0.0 % [facility] Platelet mean volume (Bld) [Entitic vol] 10.0 fL 9.0 - 12.7 fL [facility] Platelets (Bld) [#/Vol] 325 10*3/uL 140 - 440 10*3/uL [facility] RBC (Bld) [#/Vol] 3.76 10*6/uL Low 4.40 - 5.9 0 10*6/uL [facility] WBC (Bld) [#/Vol] 8.5 10*3/uL 3.6 - 10.7 10*3/uL [facility] Comprehensive metabolic 1998 panelon 11-27-2023 Albumin [Mass/Vol] 3.8 g/dL 3.5 - 5.0 g/dL [facility] ALP [Catalytic activity/Vol] 271 U/L High 38 - 126 U/L [facility] ALT [Catalytic activity/Vol] 220 U/L High 0 - 49 U/L [facility] Anion gap [Moles/Vol] 9 mmol/L 3 - 13 mmol/L [facility] AST [Catalytic activity/Vol] 220 U/L High 15 - 46 U/L [facility] Bilirubin [Mass/Vol] 1.6 mg/dL High 0.2 - 1 .3 mg/dL [facility] Calcium [Mass/Vol] 8.9 mg/dL 8.4 - 10. 4 mg/dL [facility] Chloride [Moles/Vol] 101 mmol/L 98 - 10 7 mmol/L [facility] CO2 [Moles/Vol] 24 mmol/L 22 - 30 mmol/L [facility] Creatinine [Mass/Vol] 0.46 mg/dL Low 0.66 - 1.25 mg/dL [facility] GFR/1.73 sq M.predicted (S/P/Bld) [Vol rate/Area] - PINF [facility] Glucose [Mass/Vol] 111 mg/dL High 70 - 100 mg/dL [facility] Interpretation and review of laboratory results Abnormal [facility] Potassium [Moles/Vol] 3.6 mmol/L 3.5 - 5.1 mmol/L [facility] Protein [Mass/Vol] 7.1 g/dL 6.3 - 8.2 g/dL [facility] Sodium [Moles/Vol] 134 mmol/L Low 135 - 145 mmol/L [facility] Urea nitrogen [Mass/Vol] 7 mg/dL Low 9 - 20 mg/dL [facility] Hepatic function 2000 panelo n 11-27-2023 Albumin [Mass/Vol] 3.5 g/dL 3.5 - 5.0 g/dL [facility] ALP [Catalytic activity/Vol] 295 U/L High 38 - 126 U/L [facility] ALT [Catalytic activity/Vol] 226 U/L High 0 - 49 U/L [facility] AST [Catalytic activity/Vol] 220 U/L High 15 - 46 U/L [facility] Bilirubin [Mass/Vol] 1.5 mg/dL High 0.2 - 1 .3 mg/dL [facility] Bilirubin.conjugated [Mass/Vol] 0.0 mg/dL 0.0 - 0.3 mg/dL [facility] Interpretation and review of laboratory results Abnormal [facility] Protein [Mass/Vol] 7.0 g/dL 6.3 - 8.2 g/dL [facility] CBC W Auto Differential pane l (Bld)on 11-26-2023 Erythrocyte distribution width (RBC) [Ratio] 15.9 % High 11.5 - 15.0 % [facility] Hematocrit (Bld) [Volume fraction] 36.6 % Low 40.0 - 52.0 % [facility] Hemoglobin (Bld) [Mass/Vol] 12.2 g/dL Low 13.0 - 18.0 g/dL [facility] MCH (RBC) [Entitic mass] 31.0 pg 26.0 - 34.0 pg [facility] MCHC (RBC) [Mass/Vol] 33.3 % 30.5 - 36.0 % [facility] MCV (RBC) [Entitic vol] 93.1 fL 77.0 - 99.0 fL [facility] Platelet mean volume (Bld) [Entitic vol] 10.0 fL 9.0 - 12.7 fL [facility] Platelets (Bld) [#/Vol] 279 10*3/uL 140 - 440 10*3/uL [facility] RBC (Bld) [#/Vol] 3.93 10*6/uL Low 4.40 - 5.9 0 10*6/uL [facility] WBC (Bld) [#/Vol] 7.8 10*3/uL 3.6 - 10.7 10*3/uL [facility] Comprehensive metabolic 1998 panelon 11-26-2023 Albumin [Mass/Vol] 3.9 g/dL 3.5 - 5.0 g/dL [facility] ALP [Catalytic activity/Vol] 292 U/L High 38 - 126 U/L [facility] ALT [Catalytic activity/Vol] 232 U/L High 0 - 49 U/L [facility] Anion gap [Moles/Vol] 8 mmol/L 3 - 13 mmol/L [facility] AST [Catalytic activity/Vol] 285 U/L High 15 - 46 U/L [facility] Bilirubin [Mass/Vol] 2.1 mg/dL High 0.2 - 1 .3 mg/dL [facility] Calcium [Mass/Vol] 8.8 mg/dL 8.4 - 10. 4 mg/dL [facility] Chloride [Moles/Vol] 104 mmol/L 98 - 10 7 mmol/L [facility] CO2 [Moles/Vol] 23 mmol/L 22 - 30 mmol/L [facility] Creatinine [Mass/Vol] 0.45 mg/dL Low 0.66 - 1.25 mg/dL [facility] GFR/1.73 sq M.predicted (S/P/Bld) [Vol rate/Area] - PINF [facility] Glucose [Mass/Vol] 114 mg/dL High 70 - 100 mg/dL [facility] Interpretation and review of laboratory results Abnormal [facility] Potassium [Moles/Vol] 4.5 mmol/L 3.5 - 5.1 mmol/L [facility] Protein [Mass/Vol] 7.8 g/dL 6.3 - 8.2 g/dL [facility] Sodium [Moles/Vol] 135 mmol/L 135 - 145 mmol/L [facility] Urea nitrogen [Mass/Vol] 5 mg/dL Low 9 - 20 mg/dL [facility] Laboratory - Hematology and Cell countson 11-26-2023 Band form neutrophils (Bld) [#/Vol] 0.2 10*3/uL High NINF - 0.0 10*3/uL [facility] Band form neutrophils/100 WBC (Bld) 3 % High NINF - 0 % [facility] Eosinophils (Bld) [#/Vol] 0.1 10*3/uL 0.0 - 0.5 10*3/uL [facility] Eosinophils/100 WBC (Bld) 1 % 0 - 6 % [facility] Hypochromia Ql (Bld) Rare Abnormal (none) [facility] Lymphocytes (Bld) [#/Vol] 1.5 10*3/uL 1.0 - 4.3 10*3/uL [facility] Lymphocytes/100 WBC (Bld) 19 % 15 - 45 % [facility] Metamyelocytes (Bld) [#/Vol] 0.2 10*3/uL High NINF - 0.0 10*3/uL [facility] Metamyelocytes/100 WBC (Bld) 2 % High NINF - 0 % [facility] Monocytes (Bld) [#/Vol] 0.4 10*3/uL 0.0 - 0.9 10*3/uL [facility] Monocytes/100 WBC (Bld) 5 % 5 - 13 % [facility] Neutrophils (Bld) [#/Vol] 5.7 10*3/uL 1.8 - 7.5 10*3/uL [facility] Poikilocytosis LM Ql (Bld) Rare Abnormal (none) [facility] RBC morphology finding Nom (Bld) abnormal [facility] Segmented neutrophils/100 WBC (Bld) 70 % 38 - 82 % [facility] Stomatocytes LM Ql (Bld) Slight Abnormal (none) [facility] Target cells LM Ql (Bld) Rare Abnormal (none) [facility] No Panel Informationon 11-25 CV CPACS Bands Manual 3 [facility] Eosinophils Manual 1 0 - 1 [facility] Interpretation and review of laboratory results Abnormal [facility] Lymphocytes Manual 20 [facility] Metamyelocytes Manual 2 [facility] Monocytes Manual 5 [facility] Neutrophils Manual 72 [facility] CBC W Auto Differential pane l (Bld)on 11-25-2023 Erythrocyte distribution width (RBC) [Ratio] 15.9 % High 11.5 - 15.0 % [facility] Hematocrit (Bld) [Volume fraction] 35.7 % Low 40.0 - 52.0 % [facility] Hemoglobin (Bld) [Mass/Vol] 11.7 g/dL Low 13.0 - 18.0 g/dL [facility] MCH (RBC) [Entitic mass] 30.3 pg 26.0 - 34.0 pg [facility] MCHC (RBC) [Mass/Vol] 32.8 % 30.5 - 36.0 % [facility] MCV (RBC) [Entitic vol] 92.5 fL 77.0 - 99.0 fL [facility] Nucleated RBC/100 WBC (Bld) [Ratio] 0.0 % [facility] Platelet mean volume (Bld) [Entitic vol] 10.1 fL 9.0 - 12.7 fL [facility] Platelets (Bld) [#/Vol] 225 10*3/uL 140 - 440 10*3/uL [facility] RBC (Bld) [#/Vol] 3.86 10*6/uL Low 4.40 - 5.9 0 10*6/uL [facility] WBC (Bld) [#/Vol] 6.5 10*3/uL 3.6 - 10.7 10*3/uL [facility] Comprehensive metabolic 1998 panelon 11-25-2023 Albumin [Mass/Vol] 3.6 g/dL 3.5 - 5.0 g/dL [facility] ALP [Catalytic activity/Vol] 312 U/L High 38 - 126 U/L [facility] ALT [Catalytic activity/Vol] 175 U/L High 0 - 49 U/L [facility] Anion gap [Moles/Vol] 9 mmol/L 3 - 13 mmol/L [facility] AST [Catalytic activity/Vol] 258 U/L High 15 - 46 U/L [facility] Bilirubin [Mass/Vol] 2.3 mg/dL High 0.2 - 1 .3 mg/dL [facility] Calcium [Mass/Vol] 8.7 mg/dL 8.4 - 10. 4 mg/dL [facility] Chloride [Moles/Vol] 104 mmol/L 98 - 10 7 mmol/L [facility] CO2 [Moles/Vol] 24 mmol/L 22 - 30 mmol/L [facility] Creatinine [Mass/Vol] 0.47 mg/dL Low 0.66 - 1.25 mg/dL [facility] GFR/1.73 sq M.predicted (S/P/Bld) [Vol rate/Area] - PINF [facility] Glucose [Mass/Vol] 110 mg/dL High 70 - 100 mg/dL [facility] Interpretation and review of laboratory results Abnormal [facility] Potassium [Moles/Vol] 3.2 mmol/L Low 3.5 - 5.1 mmol/L [facility] Protein [Mass/Vol] 7.0 g/dL 6.3 - 8.2 g/dL [facility] Sodium [Moles/Vol] 137 mmol/L 135 - 145 mmol/L [facility] Urea nitrogen [Mass/Vol] 4 mg/dL Low 9 - 20 mg/dL [facility] Laboratory - Chemistry and C hemistry - challengeon 11-25-2023 Magnesium [Mass/Vol] 2.4 mg/dL High 1.6 - 2 .3 mg/dL [facility] Magnesium [Mass/Vol]on 11-24 Interpretation and review of laboratory results Abnormal [facility] Manual differential performe d Ql (Bld)on 11-25-2023 Anisocytosis Ql (Bld) Slight Abnormal (none) [facility] Atypical Lymphocytes Manual 6 [facility] Band form neutrophils (Bld) [#/Vol] 0.1 10*3/uL High NINF - 0.0 10*3/uL [facility] Band form neutrophils/100 WBC (Bld) 2 % High NINF - 0 % [facility] Bands Manual 2 [facility] Cells Counted Total (Bld) [#] 100 {cells} [facility] Differential Method Manual differential performed [facility] Leukocyte morphology finding Nom (Bld) Normal [facility] Lymphocytes (Bld) [#/Vol] 0.7 10*3/uL Low 1.0 - 4.3 10*3/uL [facility] Lymphocytes Manual 11 [facility] Lymphocytes/100 WBC (Bld) 11 % Low 15 - 45 % [facility] Metamyelocytes (Bld) [#/Vol] 0.1 10*3/uL High NINF - 0.0 10*3/uL [facility] Metamyelocytes Manual 1 [facility] Metamyelocytes/100 WBC (Bld) 1 % High NINF - 0 % [facility] Monocytes (Bld) [#/Vol] 0.7 10*3/uL 0.0 - 0.9 10*3/uL [facility] Monocytes Manual 11 [facility] Monocytes/100 WBC (Bld) 11 % 5 - 13 % [facility] Myelocytes (Bld) [#/Vol] 0.1 10*3/uL High NINF - 0.0 10*3/uL [facility] Myelocytes Manual 2 [facility] Myelocytes/100 WBC (Bld) 2 % High NINF - 0 % [facility] Neutrophils (Bld) [#/Vol] 4.5 10*3/uL 1.8 - 7.5 10*3/uL [facility] Neutrophils Manual 67 [facility] Ovalocytes LM Ql (Bld) Slight Abnormal (none) [facility] Platelet morphology finding Nom (Bld) Normal [facility] Poikilocytosis LM Ql (Bld) Moderate Abnormal (none) [facility] Segmented neutrophils/100 WBC (Bld) 67 % 38 - 82 % [facility] Stomatocytes LM Ql (Bld) Moderate Abnormal (none) [facility] Target cells LM Ql (Bld) Slight Abnormal (none) [facility] Variant lymphocytes (Bld) [#/Vol] 0.4 10*3/uL High NINF - 0.0 10*3/uL [facility] Variant lymphocytes/100 WBC (Bld) 6 % High NINF - 0 % [facility] WBC corrected for nucl RBC (Bld) [#/Vol] 6.5 10*3/uL 3.6 - 10.7 10*3/uL [facility] No Panel Informationon 11-24 Interpretation and review of laboratory results Abnormal [facility] CBC W Auto Differential pane l (Bld)Ordered By: Nigel Palmer on 11-24-2023 Erythrocyte distribution width (RBC) [Ratio] 15.9 % High 11.5 - 15.0 % [facility] Hematocrit (Bld) [Volume fraction] 36.8 % Low 40.0 - 52.0 % [facility] Hemoglobin (Bld) [Mass/Vol] 12.0 g/dL Low 13.0 - 18.0 g/dL [facility] MCH (RBC) [Entitic mass] 30.3 pg 26.0 - 34.0 pg [facility] MCHC (RBC) [Mass/Vol] 32.6 % 30.5 - 36.0 % [facility] MCV (RBC) [Entitic vol] 92.9 fL 77.0 - 99.0 fL [facility] Nucleated RBC/100 WBC (Bld) [Ratio] 0.0 % [facility] Platelet mean volume (Bld) [Entitic vol] 9.6 fL 9.0 - 12.7 fL [facility] Platelets (Bld) [#/Vol] 179 10*3/uL 140 - 440 10*3/uL [facility] RBC (Bld) [#/Vol] 3.96 10*6/uL Low 4.40 - 5.9 0 10*6/uL [facility] WBC (Bld) [#/Vol] 6.8 10*3/uL 3.6 - 10.7 10*3/uL [facility] Comprehensive metabolic 1998 panelon 11-24-2023 Albumin [Mass/Vol] 3.5 g/dL 3.5 - 5.0 g/dL [facility] ALP [Catalytic activity/Vol] 293 U/L High 38 - 126 U/L [facility] ALT [Catalytic activity/Vol] 121 U/L High 0 - 49 U/L [facility] Anion gap [Moles/Vol] 7 mmol/L 3 - 13 mmol/L [facility] AST [Catalytic activity/Vol] 195 U/L High 15 - 46 U/L [facility] Bilirubin [Mass/Vol] 2.8 mg/dL High 0.2 - 1 .3 mg/dL [facility] Calcium [Mass/Vol] 8.7 mg/dL 8.4 - 10. 4 mg/dL [facility] Chloride [Moles/Vol] 106 mmol/L 98 - 10 7 mmol/L [facility] CO2 [Moles/Vol] 23 mmol/L 22 - 30 mmol/L [facility] Creatinine [Mass/Vol] 0.51 mg/dL Low 0.66 - 1.25 mg/dL [facility] GFR/1.73 sq M.predicted (S/P/Bld) [Vol rate/Area] - PINF [facility] Glucose [Mass/Vol] 113 mg/dL High 70 - 100 mg/dL [facility] Interpretation and review of laboratory results Abnormal [facility] Potassium [Moles/Vol] 3.7 mmol/L 3.5 - 5.1 mmol/L [facility] Protein [Mass/Vol] 6.9 g/dL 6.3 - 8.2 g/dL [facility] Sodium [Moles/Vol] 136 mmol/L 135 - 145 mmol/L [facility] Urea nitrogen [Mass/Vol] 3 mg/dL Low 9 - 20 mg/dL [facility] Manual differential performe d Ql (Bld)on 11-24-2023 Anisocytosis Ql (Bld) Slight Abnormal (none) [facility] Band form neutrophils (Bld) [#/Vol] 0.1 10*3/uL High NINF - 0.0 10*3/uL [facility] Band form neutrophils/100 WBC (Bld) 2 % High NINF - 0 % [facility] Bands Manual 2 [facility] Cells Counted Total (Bld) [#] 100 {cells} [facility] Differential Method Manual differential performed [facility] Eosinophils (Bld) [#/Vol] 0.1 10*3/uL 0.0 - 0.5 10*3/uL [facility] Eosinophils Manual 2 High 0 - 1 [facility] Eosinophils/100 WBC (Bld) 2 % 0 - 6 % [facility] Leukocyte morphology finding Nom (Bld) Normal [facility] Lymphocytes (Bld) [#/Vol] 1.3 10*3/uL 1.0 - 4.3 10*3/uL [facility] Lymphocytes Manual 19 [facility] Lymphocytes/100 WBC (Bld) 19 % 15 - 45 % [facility] Monocytes (Bld) [#/Vol] 0.5 10*3/uL 0.0 - 0.9 10*3/uL [facility] Monocytes Manual 7 [facility] Monocytes/100 WBC (Bld) 7 % 5 - 13 % [facility] Myelocytes (Bld) [#/Vol] 0.1 10*3/uL High NINF - 0.0 10*3/uL [facility] Myelocytes Manual 2 [facility] Myelocytes/100 WBC (Bld) 2 % High NINF - 0 % [facility] Neutrophils (Bld) [#/Vol] 4.8 10*3/uL 1.8 - 7.5 10*3/uL [facility] Neutrophils Manual 68 [facility] Platelet morphology finding Nom (Bld) Normal [facility] Poikilocytosis LM Ql (Bld) Slight Abnormal (none) [facility] Polychromasia LM Ql (Bld) Rare Abnormal (none) [facility] Segmented neutrophils/100 WBC (Bld) 68 % 38 - 82 % [facility] Target cells LM Ql (Bld) Slight Abnormal (none) [facility] WBC corrected for nucl RBC (Bld) [#/Vol] 6.8 10*3/uL 3.6 - 10.7 10*3/uL [facility] No Panel InformationOrdered By: Nigel Palmer on 11-24-2023 Interpretation and review of laboratory results Abnormal [facility] US Abdomen limitedon 024 [facility] EM[facility] RADIOLOGY SYSTEM [facility] EM[facility]PART[facility] RADIOLOGY [facility] Radiology Study observation (narrative) [facility] Abdomen limitedOrdered By : Humera Abbott on 11-24-2023 [facility] Work Phone: CBC W Auto Differential pane l (Bld)on 11-23-2023 Erythrocyte distribution width (RBC) [Ratio] 15.7 % High 11.5 - 15.0 % [facility] Hematocrit (Bld) [Volume fraction] 37.4 % Low 40.0 - 52.0 % [facility] Hemoglobin (Bld) [Mass/Vol] 12.5 g/dL Low 13.0 - 18.0 g/dL [facility] Interpretation and review of laboratory results Abnormal [facility] MCH (RBC) [Entitic mass] 30.7 pg 26.0 - 34.0 pg [facility] MCHC (RBC) [Mass/Vol] 33.4 % 30.5 - 36.0 % [facility] MCV (RBC) [Entitic vol] 91.9 fL 77.0 - 99.0 fL [facility] Platelet mean volume (Bld) [Entitic vol] 10.0 fL 9.0 - 12.7 fL [facility] Platelets (Bld) [#/Vol] 144 10*3/uL 140 - 440 10*3/uL [facility] RBC (Bld) [#/Vol] 4.07 10*6/uL Low 4.40 - 5.9 0 10*6/uL [facility] WBC (Bld) [#/Vol] 6.0 10*3/uL 3.6 - 10.7 10*3/uL [facility] Comprehensive metabolic 1998 panelon 11-23-2023 Albumin [Mass/Vol] 3.4 g/dL Low 3.5 - 5.0 g/dL [facility] ALP [Catalytic activity/Vol] 205 U/L High 38 - 126 U/L [facility] ALT [Catalytic activity/Vol] 74 U/L High 0 - 49 U/L [facility] Anion gap [Moles/Vol] 8 mmol/L 3 - 13 mmol/L [facility] AST [Catalytic activity/Vol] 141 U/L High 15 - 46 U/L [facility] Bilirubin [Mass/Vol] 3.8 mg/dL High 0.2 - 1 .3 mg/dL [facility] Calcium [Mass/Vol] 8.8 mg/dL 8.4 - 10. 4 mg/dL [facility] Chloride [Moles/Vol] 104 mmol/L 98 - 10 7 mmol/L [facility] CO2 [Moles/Vol] 24 mmol/L 22 - 30 mmol/L [facility] Creatinine [Mass/Vol] 0.51 mg/dL Low 0.66 - 1.25 mg/dL [facility] GFR/1.73 sq M.predicted (S/P/Bld) [Vol rate/Area] - PINF [facility] Glucose [Mass/Vol] 111 mg/dL High 70 - 100 mg/dL [facility] Interpretation and review of laboratory results Abnormal [facility] Potassium [Moles/Vol] 3.4 mmol/L Low 3.5 - 5.1 mmol/L [facility] Protein [Mass/Vol] 6.7 g/dL 6.3 - 8.2 g/dL [facility] Sodium [Moles/Vol] 135 mmol/L 135 - 145 mmol/L [facility] Urea nitrogen [Mass/Vol] 7 mg/dL Low 9 - 20 mg/dL [facility] Hepatitis 1996 panel (S)on HAV IgM IA Ql Not detected Not Detected [facility] HBV core IgM IA Ql Not detected Not Detected [facility] HBV surface Ag IA Ql Not detected Not Detected [facility] HCV Ab IA Ql Not detected Not Detected [facility] Interpretation and review of laboratory results Normal [facility] Laboratory - Chemistry and C hemistry - challengeon 11-23-2023 Lipase [Catalytic activity/Vol] 183 U/L 23 - 300 U/L [facility] Magnesium [Mass/Vol] 2.4 mg/dL High 1.6 - 2 .3 mg/dL [facility] Laboratory - Hematology and Cell countson 11-23-2023 Band form neutrophils (Bld) [#/Vol] 0.1 10*3/uL High NINF - 0.0 10*3/uL [facility] Band form neutrophils/100 WBC (Bld) 1 % High NINF - 0 % [facility] Eosinophils (Bld) [#/Vol] 0.1 10*3/uL 0.0 - 0.5 10*3/uL [facility] Eosinophils/100 WBC (Bld) 1 % 0 - 6 % [facility] Hypochromia Ql (Bld) Slight Abnormal (none) [facility] Lymphocytes (Bld) [#/Vol] 1.2 10*3/uL 1.0 - 4.3 10*3/uL [facility] Lymphocytes/100 WBC (Bld) 20 % 15 - 45 % [facility] Metamyelocytes (Bld) [#/Vol] 0.2 10*3/uL High NINF - 0.0 10*3/uL [facility] Metamyelocytes/100 WBC (Bld) 3 % High NINF - 0 % [facility] Monocytes (Bld) [#/Vol] 0.8 10*3/uL 0.0 - 0.9 10*3/uL [facility] Monocytes/100 WBC (Bld) 14 % High 5 - 13 % [facility] Myelocytes (Bld) [#/Vol] 0.2 10*3/uL High NINF - 0.0 10*3/uL [facility] Myelocytes/100 WBC (Bld) 3 % High NINF - 0 % [facility] Neutrophils (Bld) [#/Vol] 3.5 10*3/uL 1.8 - 7.5 10*3/uL [facility] Poikilocytosis LM Ql (Bld) Rare Abnormal (none) [facility] Polychromasia LM Ql (Bld) Rare Abnormal (none) [facility] RBC morphology finding Nom (Bld) abnormal [facility] Segmented neutrophils/100 WBC (Bld) 58 % 38 - 82 % [facility] Stomatocytes LM Ql (Bld) Slight Abnormal (none) [facility] Target cells LM Ql (Bld) Rare Abnormal (none) [facility] Lipase [Catalytic activity/V ol]on 11-23-2023 Interpretation and review of laboratory results Normal [facility] Magnesium [Mass/Vol]on 11-22 Interpretation and review of laboratory results Abnormal [facility] No Panel Informationon 11-22 Bands Manual 1 [facility] Eosinophils Manual 1 0 - 1 [facility] Interpretation and review of laboratory results Abnormal [facility] Lymphocytes Manual 20 [facility] Metamyelocytes Manual 3 [facility] Monocytes Manual 14 [facility] Myelocytes Manual 3 [facility] Neutrophils Manual 58 [facility] CBC W Auto Differential pane l (Bld)Ordered By: Dada Rich on 11-22-2023 Basophils (Bld) [#/Vol] 0.0 10*3/uL 0.0 - 0.2 10*3/uL [facility] Basophils/100 WBC (Bld) 0.5 % 0.0 - 2.0 % [facility] Eosinophils (Bld) [#/Vol] 0.1 10*3/uL 0.0 - 0.5 10*3/uL [facility] Eosinophils/100 WBC (Bld) 2.0 % 0.0 - 6.0 % [facility] Erythrocyte distribution width (RBC) [Ratio] 15.3 % High 11.5 - 15.0 % [facility] Hematocrit (Bld) [Volume fraction] 35.7 % Low 40.0 - 52.0 % [facility] Hemoglobin (Bld) [Mass/Vol] 12.2 g/dL Low 13.0 - 18.0 g/dL [facility] Immature granulocytes (Bld) [#/Vol] 0.3 10*3/uL High NINF - 0.1 10*3/uL [facility] Immature granulocytes/100 WBC (Bld) 4.7 % High 0.0 - 2.0 % [facility] Interpretation and review of laboratory results Abnormal [facility] IPF 4 [facility] Lymphocytes (Bld) [#/Vol] 1.6 10*3/uL 1.0 - 4.3 10*3/uL [facility] Lymphocytes/100 WBC (Bld) 26.3 % 15.0 - 45.0 % [facility] MCH (RBC) [Entitic mass] 31.4 pg 26.0 - 34.0 pg [facility] MCHC (RBC) [Mass/Vol] 34.2 % 30.5 - 36.0 % [facility] MCV (RBC) [Entitic vol] 91.8 fL 77.0 - 99.0 fL [facility] Monocytes (Bld) [#/Vol] 0.7 10*3/uL 0.0 - 0.9 10*3/uL [facility] Monocytes/100 WBC (Bld) 11.4 % 5.0 - 13.0 % [facility] Neutrophils (Bld) [#/Vol] 3.3 10*3/uL 1.8 - 7.5 10*3/uL [facility] Neutrophils/100 WBC (Bld) 55.1 % 38.0 - 82.0 % [facility] Nucleated RBC/100 WBC (Bld) [Ratio] 0.3 % [facility] Platelet mean volume (Bld) [Entitic vol] 9.9 fL 9.0 - 12.7 fL [facility] Platelets (Bld) [#/Vol] 142 10*3/uL 140 - 440 10*3/uL [facility] RBC (Bld) [#/Vol] 3.89 10*6/uL Low 4.40 - 5.9 0 10*6/uL [facility] WBC (Bld) [#/Vol] 5.9 10*3/uL 3.6 - 10.7 10*3/uL [facility] CT Abdomen WO contraston [facility] EM[facility] RADIOLOGY SYSTEM [facility] EM[facility] RADIOLOGY [facility][note 2] Radiology Study observation (narrative) [facility] Comprehensive metabolic 1998 panelon 11-22-2023 Albumin [Mass/Vol] 3.2 g/dL Low 3.5 - 5.0 g/dL [facility] ALP [Catalytic activity/Vol] 140 U/L High 38 - 126 U/L [facility] ALT [Catalytic activity/Vol] 56 U/L High 0 - 49 U/L [facility] Anion gap [Moles/Vol] 7 mmol/L 3 - 13 mmol/L [facility] AST [Catalytic activity/Vol] 121 U/L High 15 - 46 U/L [facility] Bilirubin [Mass/Vol] 4.0 mg/dL High 0.2 - 1 .3 mg/dL [facility] Calcium [Mass/Vol] 8.6 mg/dL 8.4 - 10. 4 mg/dL [facility] Chloride [Moles/Vol] 102 mmol/L 98 - 10 7 mmol/L [facility] CO2 [Moles/Vol] 23 mmol/L 22 - 30 mmol/L [facility] Creatinine [Mass/Vol] 0.47 mg/dL Low 0.66 - 1.25 mg/dL [facility] GFR/1.73 sq M.predicted (S/P/Bld) [Vol rate/Area] - PINF [facility] Glucose [Mass/Vol] 118 mg/dL High 70 - 100 mg/dL [facility] Interpretation and review of laboratory results Abnormal [facility] Potassium [Moles/Vol] 3.2 mmol/L Low 3.5 - 5.1 mmol/L [facility] Protein [Mass/Vol] 6.3 g/dL 6.3 - 8.2 g/dL [facility] Sodium [Moles/Vol] 132 mmol/L Low 135 - 145 mmol/L [facility] Urea nitrogen [Mass/Vol] 8 mg/dL Low 9 - 20 mg/dL [facility] Laboratory - Chemistry and C hemistry - challengeon 11-22-2023 Magnesium [Mass/Vol] 2.2 mg/dL 1.6 - 2 .3 mg/dL [facility] Magnesium [Mass/Vol]on 11-21 Interpretation and review of laboratory results Normal [facility] CBC W Auto Differential pane l (Bld)on 11-21-2023 Basophils (Bld) [#/Vol] 0.0 10*3/uL 0.0 - 0.2 10*3/uL [facility] Basophils/100 WBC (Bld) 0.5 % 0.0 - 2.0 % [facility] Eosinophils (Bld) [#/Vol] 0.1 10*3/uL 0.0 - 0.5 10*3/uL [facility] Eosinophils/100 WBC (Bld) 0.9 % 0.0 - 6.0 % [facility] Erythrocyte distribution width (RBC) [Ratio] 15.3 % High 11.5 - 15.0 % [facility] Hematocrit (Bld) [Volume fraction] 37.5 % Low 40.0 - 52.0 % [facility] Hemoglobin (Bld) [Mass/Vol] 12.4 g/dL Low 13.0 - 18.0 g/dL [facility] Immature granulocytes (Bld) [#/Vol] 0.1 10*3/uL High NINF - 0.1 10*3/uL [facility] Immature granulocytes/100 WBC (Bld) 2.0 % 0.0 - 2.0 % [facility] Interpretation and review of laboratory results Abnormal [facility] IPF 6 [facility] Lymphocytes (Bld) [#/Vol] 1.3 10*3/uL 1.0 - 4.3 10*3/uL [facility] Lymphocytes/100 WBC (Bld) 19.3 % 15.0 - 45.0 % [facility] MCH (RBC) [Entitic mass] 30.7 pg 26.0 - 34.0 pg [facility] MCHC (RBC) [Mass/Vol] 33.1 % 30.5 - 36.0 % [facility] MCV (RBC) [Entitic vol] 92.8 fL 77.0 - 99.0 fL [facility] Monocytes (Bld) [#/Vol] 0.6 10*3/uL 0.0 - 0.9 10*3/uL [facility] Monocytes/100 WBC (Bld) 9.0 % 5.0 - 13.0 % [facility] Neutrophils (Bld) [#/Vol] 4.5 10*3/uL 1.8 - 7.5 10*3/uL [facility] Neutrophils/100 WBC (Bld) 68.3 % 38.0 - 82.0 % [facility] Nucleated RBC/100 WBC (Bld) [Ratio] 0.0 % [facility] Platelet mean volume (Bld) [Entitic vol] 10.7 fL 9.0 - 12.7 fL [facility] Platelets (Bld) [#/Vol] 109 10*3/uL Low 140 - 440 10*3/uL [facility] RBC (Bld) [#/Vol] 4.04 10*6/uL Low 4.40 - 5.9 0 10*6/uL [facility] WBC (Bld) [#/Vol] 6.5 10*3/uL 3.6 - 10.7 10*3/uL [facility] Comprehensive metabolic 1998 panelon 11-21-2023 Albumin [Mass/Vol] 3.1 g/dL Low 3.5 - 5.0 g/dL [facility] ALP [Catalytic activity/Vol] 83 U/L 38 - 126 U/L [facility] ALT [Catalytic activity/Vol] 47 U/L 0 - 49 U/L [facility] Anion gap [Moles/Vol] 8 mmol/L 3 - 13 mmol/L [facility] AST [Catalytic activity/Vol] 69 U/L High 15 - 46 U/L [facility] Bilirubin [Mass/Vol] 3.3 mg/dL High 0.2 - 1 .3 mg/dL [facility] Calcium [Mass/Vol] 8.6 mg/dL 8.4 - 10. 4 mg/dL [facility] Chloride [Moles/Vol] 103 mmol/L 98 - 10 7 mmol/L [facility] CO2 [Moles/Vol] 23 mmol/L 22 - 30 mmol/L [facility] Creatinine [Mass/Vol] 0.44 mg/dL Low 0.66 - 1.25 mg/dL [facility] GFR/1.73 sq M.predicted (S/P/Bld) [Vol rate/Area] - PINF [facility] Glucose [Mass/Vol] 95 mg/dL 70 - 100 mg/dL [facility] Interpretation and review of laboratory results Abnormal [facility] Potassium [Moles/Vol] 3.2 mmol/L Low 3.5 - 5.1 mmol/L [facility] Protein [Mass/Vol] 6.2 g/dL Low 6.3 - 8.2 g/dL [facility] Sodium [Moles/Vol] 134 mmol/L Low 135 - 145 mmol/L [facility] Urea nitrogen [Mass/Vol] 6 mg/dL Low 9 - 20 mg/dL [facility] Laboratory - Chemistry and C hemistry - challengeon 11-21-2023 Magnesium [Mass/Vol] 1.9 mg/dL 1.6 - 2 .3 mg/dL [facility] Magnesium [Mass/Vol]on 11-20 Interpretation and review of laboratory results Normal [facility] US Heart TransthoracicOrdere d By: Genie Pike on 11-21-2023 Ao Root Index 1.14 cm/m2 [facility]: Aortic Root 2.7 cm [facility] Phone: [phone] Aortic Sinus Valsalva 2.7 cm [facility] Phone: Aortic Sinus Valsalva Index 1.14 cm/m2 [facility] Phone: [phone] Ascending Aorta 2.9 cm [facility] Phone: [phone] Ascending Aorta Index 1.22 cm/m2 [facility] Phone: AV Area by Peak Velocity 2.9 cm2 [facility] Phone: AV Area by VTI 2.9 cm2 [facility] Phone: AV Mean Gradient 6 mmHg [facility] Phone: AV Mean Velocity 1.1 m/s [facility] Phone: AV Peak Gradient 11 mmHg [facility] Phone: AV Peak Velocity 1.6 m/s [facility] Phone: AV Velocity Ratio 0.75 [facility] Phone: AV VTI 31.9 cm [facility] Phone: HEATHER/BSA Peak Velocity 1.2 cm2/m2 [facility] Phone: HEATHER/BSA VTI 1.2 cm2/m2 [facility] [employer] Phone: E/E' Lateral 5.39 [facility] Phone: E/E' Ratio (Averaged) 6.43 [facility] Phone: E/E' Septal 7.46 [facility] Phone: EF BP 74 % 55 - 100 % [facility] Phone: Interpretation and review of laboratory results Abnormal [facility] Phone: LA Volume 2C 67 mL Abnormal 18 - 58 mL [facility] Work Phone: [phone] LA Volume 4C 95 mL Abnormal 18 - 58 mL [facility] Work Phone: LA Volume A/L 93 mL [facility] Work Phone: LA Volume BP 87 mL Abnormal 18 - 58 mL [facility] Work Phone: [phone] LA Volume Index 2C 28 mL/m2 16 - 34 mL/m2 [facility] Work Phone: LA Volume Index 4C 40 mL/m2 Abnormal 16 - 34 mL/m2 [facility] Work Phone: LA Volume Index A/L 39 mL/m2 16 - 34 mL/m2 [facility] Work Phone: [phone] LA Volume Index BP 37 ml/m2 Abnormal 16 - 34 ml/m2 [facility] Work Phone: LV E' Lateral Velocity 18 cm/s [facility] Work Phone: LV E' Septal Velocity 13 cm/s [facility] Work Phone: LV EDV A2C 135 mL [facility] Work Phone: [phone] LV EDV A4C 91 mL [facility] Work Phone: LV EDV BP 117 mL 67 - 155 mL [facility] Work Phone: LV EDV Index A2C 57 mL/m2 [facility] Work Phone: LV EDV Index A4C 38 mL/m2 [facility] Work Phone: LV EDV Index BP 49 mL/m2 [facility] Work Phone: [phone] LV Ejection Fraction A2C 73 % [facility] Work Phone: LV Ejection Fraction A4C 73 % [facility] Work Phone: LV ESV A2C 37 mL [facility] Work Phone: LV ESV A4C 24 mL [facility] Work Phone: LV ESV BP 31 mL 22 - 58 mL [facility] Work Phone: LV ESV Index A2C 16 mL/m2 [facility] Work Phone: [phone] LV ESV Index A4C 10 mL/m2 [facility] Work Phone: [phone] LV ESV Index BP 13 mL/m2 [facility] Work Phone: [phone] LVOT Area 4.2 cm2 [facility] Work Phone: [phone] LVOT Cardiac Output 7.6 liter/minute [facility] Work Phone: [phone] LVOT Diameter 2.3 cm [facility] Work Phone: [phone] LVOT Mean Gradient 3 mmHg [facility] Work Phone: [phone] LVOT Peak Gradient 6 mmHg [facility] Work Phone: [phone] LVOT Peak Velocity 1.2 m/s [facility] Work Phone: [phone] LVOT Stroke Volume Index 41.0 mL/m2 [facility] Work Phone: [phone] LVOT SV 97.2 ml [facility] Work Phone: [phone] LVOT VTI 23.4 cm [facility] Work Phone: [phone] LVOT:AV VTI Index 0.73 [facility] Work Phone: [phone] MV A Velocity 0.58 m/s [facility] Work Phone: [phone] MV E Velocity 0.97 m/s [facility] Work Phone: [phone] MV E Wave Deceleration Time 150.4 ms [facility] Work Phone: [phone] MV E/A 1.67 [facility] Work Phone: [phone] RA Area 4C 35.2 mL [facility] Work Phone: [phone] RA Area 4C 35.3 mL [facility] Work Phone: [phone] RV Basal Dimension 4.0 cm [facility] Work Phone: [phone] RV Free Wall Peak S' 18 cm/s [facility] Work Phone: [phone] TAPSE 2.2 cm 1.7 cm [facility] Work Phone: [phone] TR Max Velocity 3.07 m/s [facility] Work Phone: TR Peak Gradient 38 mmHg [facility] Work Phone: [facility] Work Phone: US Heart Transthoracicon CV CPACS CBC W Auto Differential pane l (Bld)Ordered By: Laurel Gzuman on 11-20-2023 Erythrocyte distribution width (RBC) [Ratio] 15.1 % High 11.5 - 15.0 % [facility] Hematocrit (Bld) [Volume fraction] 37.7 % Low 40.0 - 52.0 % [facility] Hemoglobin (Bld) [Mass/Vol] 12.8 g/dL Low 13.0 - 18.0 g/dL [facility] Interpretation and review of laboratory results Abnormal [facility] IPF 6 [facility] MCH (RBC) [Entitic mass] 31.4 pg 26.0 - 34.0 pg [facility] MCHC (RBC) [Mass/Vol] 34.0 % 30.5 - 36.0 % [facility] MCV (RBC) [Entitic vol] 92.4 fL 77.0 - 99.0 fL [facility] Platelet mean volume (Bld) [Entitic vol] 10.6 fL 9.0 - 12.7 fL [facility] Platelets (Bld) [#/Vol] 77 10*3/uL Low 140 - 440 10*3/uL [facility] RBC (Bld) [#/Vol] 4.08 10*6/uL Low 4.40 - 5.9 0 10*6/uL [facility] WBC (Bld) [#/Vol] 6.6 10*3/uL 3.6 - 10.7 10*3/uL [facility] CTA Chest vessels WO and W c ontrast Ellen 11-20-2023 [facility] EM[facility] RADIOLOGY SYSTEM [facility] EM[facility] RADIOLOGY SYSTEM [facility] Radiology Study observation (narrative) [facility] CTA Chest vessels WO and W c ontrast IVOrdered By: Seema Watson on 11-20-2023 [facility] Work Phone: Laboratory - Chemistry and C hemistry - challengeon 11-20-2023 Lipase [Catalytic activity/Vol] 421 U/L High 23 - 300 U/L [facility] Lipase [Catalytic activity/V ol]on 11-20-2023 Interpretation and review of laboratory results Abnormal [facility] Manual differential performe d Ql (Bld)on 11-20-2023 Anisocytosis Ql (Bld) Slight Abnormal (none) [facility] Band form neutrophils (Bld) [#/Vol] 1.7 10*3/uL High NINF - 0.0 10*3/uL [facility] Band form neutrophils/100 WBC (Bld) 25 % High NINF - 0 % [facility] Bands Manual 25 [facility] Cells Counted Total (Bld) [#] 100 {cells} [facility] Differential Method Manual differential performed [facility] Interpretation and review of laboratory results Abnormal [facility] Leukocyte morphology finding Nom (Bld) Normal [facility] Lymphocytes (Bld) [#/Vol] 1.1 10*3/uL 1.0 - 4.3 10*3/uL [facility] Lymphocytes Manual 16 [facility] Lymphocytes/100 WBC (Bld) 16 % 15 - 45 % [facility] Monocytes (Bld) [#/Vol] 0.3 10*3/uL 0.0 - 0.9 10*3/uL [facility] Monocytes Manual 4 [facility] Monocytes/100 WBC (Bld) 4 % Low 5 - 13 % [facility] Neutrophils (Bld) [#/Vol] 5.3 10*3/uL 1.8 - 7.5 10*3/uL [facility] Neutrophils Manual 55 [facility] Platelet morphology finding Nom (Bld) Normal [facility] Polychromasia LM Ql (Bld) Rare Abnormal (none) [facility] Segmented neutrophils/100 WBC (Bld) 55 % 38 - 82 % [facility] WBC corrected for nucl RBC (Bld) [#/Vol] 6.6 10*3/uL 3.6 - 10.7 10*3/uL [facility] Comprehensive metabolic 1998 panelOrdered By: Taina Lancaster on 11-19-2023 Albumin [Mass/Vol] 3.3 g/dL Low 3.5 - 5.0 g/dL [facility] ALP [Catalytic activity/Vol] 74 U/L 38 - 126 U/L [facility] ALT [Catalytic activity/Vol] 55 U/L High 0 - 49 U/L [facility] Anion gap [Moles/Vol] 10 mmol/L 3 - 13 mmol/L [facility] AST [Catalytic activity/Vol] 68 U/L High 15 - 46 U/L [facility] Bilirubin [Mass/Vol] 3.1 mg/dL High 0.2 - 1 .3 mg/dL [facility] Calcium [Mass/Vol] 8.2 mg/dL Low 8.4 - 10. 4 mg/dL [facility] Chloride [Moles/Vol] 105 mmol/L 98 - 10 7 mmol/L [facility] CO2 [Moles/Vol] 17 mmol/L Low 22 - 30 mmol/L [facility] Creatinine [Mass/Vol] 0.51 mg/dL Low 0.66 - 1.25 mg/dL [facility] GFR/1.73 sq M.predicted (S/P/Bld) [Vol rate/Area] - PINF [facility] Glucose [Mass/Vol] 110 mg/dL High 70 - 100 mg/dL [facility] Interpretation and review of laboratory results Abnormal [facility] Potassium [Moles/Vol] 4.0 mmol/L 3.5 - 5.1 mmol/L [facility] Protein [Mass/Vol] 6.1 g/dL Low 6.3 - 8.2 g/dL [facility] Sodium [Moles/Vol] 131 mmol/L Low 135 - 145 mmol/L [facility] Urea nitrogen [Mass/Vol] 6 mg/dL Low 9 - 20 mg/dL [facility] Laboratory - Chemistry and C hemistry - challengeon 11-19-2023 Lipase [Catalytic activity/Vol] 837 U/L High 23 - 300 U/L [facility] Lipase [Catalytic activity/V ol]on 11-19-2023 Interpretation and review of laboratory results Abnormal [facility] No Panel InformationOrdered By: Kori May on 11-19-2023 FENTANYL SCREEN, URINE Negative Negative [facility] XR Chest 2 Viewson [facility] EM[facility] RADIOLOGY SYSTEM [facility] EMERGENC[facility]PART[facility] RADIOLOGY SYSTEM [facility] Radiology Study observation (narrative) [facility] XR Chest 2 ViewsOrdered By: Cedrick Kaur on 11-19-2023 [facility] Work Phone: CBC W Auto Differential pane l (Bld)on 11-18-2023 Basophils (Bld) [#/Vol] 0.0 10*3/uL 0.0 - 0.2 10*3/uL [facility] Basophils/100 WBC (Bld) 0.4 % 0.0 - 2.0 % [facility] Eosinophils (Bld) [#/Vol] 0.0 10*3/uL 0.0 - 0.5 10*3/uL [facility] Eosinophils/100 WBC (Bld) 0.3 % 0.0 - 6.0 % [facility] Erythrocyte distribution width (RBC) [Ratio] 15.4 % High 11.5 - 15.0 % [facility] Hematocrit (Bld) [Volume fraction] 48.8 % 40.0 - 52.0 % [facility] Hemoglobin (Bld) [Mass/Vol] 16.1 g/dL 13.0 - 18.0 g/dL [facility] Immature granulocytes (Bld) [#/Vol] 0.0 10*3/uL NINF - 0.1 10*3/uL [facility] Immature granulocytes/100 WBC (Bld) 0.3 % 0.0 - 2.0 % [facility] Interpretation and review of laboratory results Abnormal [facility] Lymphocytes (Bld) [#/Vol] 1.8 10*3/uL 1.0 - 4.3 10*3/uL [facility] Lymphocytes/100 WBC (Bld) 25.2 % 15.0 - 45.0 % [facility] MCH (RBC) [Entitic mass] 30.9 pg 26.0 - 34.0 pg [facility] MCHC (RBC) [Mass/Vol] 33.0 % 30.5 - 36.0 % [facility] MCV (RBC) [Entitic vol] 93.7 fL 77.0 - 99.0 fL [facility] Monocytes (Bld) [#/Vol] 0.4 10*3/uL 0.0 - 0.9 10*3/uL [facility] Monocytes/100 WBC (Bld) 5.9 % 5.0 - 13.0 % [facility] Neutrophils (Bld) [#/Vol] 4.9 10*3/uL 1.8 - 7.5 10*3/uL [facility] Neutrophils/100 WBC (Bld) 67.9 % 38.0 - 82.0 % [facility] Nucleated RBC/100 WBC (Bld) [Ratio] 0.0 % [facility] Platelet mean volume (Bld) [Entitic vol] 9.8 fL 9.0 - 12.7 fL [facility] Platelets (Bld) [#/Vol] 176 10*3/uL 140 - 440 10*3/uL [facility] RBC (Bld) [#/Vol] 5.21 10*6/uL 4.40 - 5.9 0 10*6/uL [facility] WBC (Bld) [#/Vol] 7.1 10*3/uL 3.6 - 10.7 10*3/uL [facility] CT Abdomen and Pelvis W cont rast Ellen 11-18-2023 [facility] EMERGENC[facility]PART[facility] RADIOLOGY SYSTEM [facility] Radiology Study observation (narrative) [facility] CT Abdomen and Pelvis W cont rast IVOrdered By: Gagan Rich on 11-18-2023 [facility] Work Phone: Comprehensive metabolic 1998 panelon 11-18-2023 Albumin [Mass/Vol] 4.4 g/dL 3.5 - 5.0 g/dL [facility] ALP [Catalytic activity/Vol] 156 U/L High 38 - 126 U/L [facility] ALT [Catalytic activity/Vol] 120 U/L High 0 - 49 U/L [facility] Anion gap [Moles/Vol] 11 mmol/L 3 - 13 mmol/L [facility] AST [Catalytic activity/Vol] 198 U/L High 15 - 46 U/L [facility] Bilirubin [Mass/Vol] 1.5 mg/dL High 0.2 - 1 .3 mg/dL [facility] Calcium [Mass/Vol] 9.4 mg/dL 8.4 - 10. 4 mg/dL [facility] Chloride [Moles/Vol] 103 mmol/L 98 - 10 7 mmol/L [facility] CO2 [Moles/Vol] 25 mmol/L 22 - 30 mmol/L [facility] Creatinine [Mass/Vol] 0.64 mg/dL Low 0.66 - 1.25 mg/dL [facility] GFR/1.73 sq M.predicted (S/P/Bld) [Vol rate/Area] - PINF [facility] Glucose [Mass/Vol] 126 mg/dL High 70 - 100 mg/dL [facility] Interpretation and review of laboratory results Abnormal [facility] Potassium [Moles/Vol] 4.8 mmol/L 3.5 - 5.1 mmol/L [facility] Protein [Mass/Vol] 7.7 g/dL 6.3 - 8.2 g/dL [facility] Sodium [Moles/Vol] 140 mmol/L 135 - 145 mmol/L [facility] Urea nitrogen [Mass/Vol] 5 mg/dL Low 9 - 20 mg/dL [facility] Albumin [Mass/Vol] 4.8 g/dL 3.5 - 5.0 g/dL [facility] ALP [Catalytic activity/Vol] 145 U/L High 38 - 126 U/L [facility] ALT [Catalytic activity/Vol] 148 U/L High 0 - 49 U/L [facility] Anion gap [Moles/Vol] 18 mmol/L High 3 - 13 mmol/L [facility] AST [Catalytic activity/Vol] 249 U/L High 15 - 46 U/L [facility] Bilirubin [Mass/Vol] 1.0 mg/dL 0.2 - 1 .3 mg/dL [facility] Calcium [Mass/Vol] 9.1 mg/dL 8.4 - 10. 4 mg/dL [facility] Chloride [Moles/Vol] 104 mmol/L 98 - 10 7 mmol/L [facility] CO2 [Moles/Vol] 18 mmol/L Low 22 - 30 mmol/L [facility] Creatinine [Mass/Vol] 0.65 mg/dL Low 0.66 - 1.25 mg/dL [facility] GFR/1.73 sq M.predicted (S/P/Bld) [Vol rate/Area] - PINF [facility] Glucose [Mass/Vol] 155 mg/dL High 70 - 100 mg/dL [facility] Potassium [Moles/Vol] 4.0 mmol/L 3.5 - 5.1 mmol/L [facility] Protein [Mass/Vol] 8.4 g/dL High 6.3 - 8.2 g/dL [facility] Sodium [Moles/Vol] 140 mmol/L 135 - 145 mmol/L [facility] Urea nitrogen [Mass/Vol] 5 mg/dL Low 9 - 20 mg/dL [facility] Ethanol (Bld) [Mass/Vol]on Ethanol [Mass/Vol] 0.027 g/dL High 0.000 - 0.010 g/dL [facility] Laboratory - Chemistry and C hemistry - challengeon 11-18-2023 Triglyceride [Mass/Vol] 232 mg/dL High NINF - 150 mg/dL [facility] Laboratory - Chemistry and C hemistry - challengeOrdered By: Francine Murphy on 11-18-2023 Lipase [Catalytic activity/Vol] U/L High 23 - 300 U/L [facility] Laboratory - Chemistry and C hemistry - challengeOrdered By: Tessa Velez on 11-18-2023 Lipase [Catalytic activity/Vol] U/L High 23 - 300 U/L [facility] Laboratory - Drug toxicology on 11-18-2023 Amphetamines Screen method >1000 ng/mL Ql (U) Negative [facility] Barbiturates Screen method >200 ng/mL Ql (U) Negative [facility] Benzodiazepines Ql (U) Negative [facility] Methadone Screen Ql (U) Negative [facility] Opiates Screen Ql (U) Positive [facility] oxyCODONE Ql (U) Negative [facility] Phencyclidine Ql (U) Negative [facility] Laboratory - Microbiology an d Antimicrobial susceptibilityOrdered By: Nevaeh Erickson on 11-18-2023 SARS-CoV-2 (COVID-19) Ag IA.rapid Ql (Resp) Negative Negative [facility] Lipase [Catalytic activity/V ol]Ordered By: Francine Murphy on 11-18-2023 Interpretation and review of laboratory results Abnormal [facility] Lipase [Catalytic activity/V ol]Ordered By: Tessa Velez on 11-18-2023 Interpretation and review of laboratory results Abnormal [facility] No Panel Informationon 11-17 COCAINE METAB. SCREEN Negative [facility] Interpretation and review of laboratory results Abnormal [facility] SARS-CoV-2 (COVID-19) Ag IA. rapid Ql (Resp)Ordered By: Nevaeh Erickson on 11-18-2023 Interpretation and review of laboratory results Normal [facility] Triglyceride [Mass/Vol]on Interpretation and review of laboratory results Abnormal [facility] Urinalysis complete panel (U )Ordered By: Wanda Frias on 11-18-2023 Bacteria LM.HPF (Urine sed) [#/Area] Negative Negative /HPF [facility] Bilirubin Ql (U) Negative Negative mg/dL [facility] Clarity (U) Clear Clear [facility] Color (U) Yellow Lt. Yellow [facility] Epithelial cells.squamous LM.HPF (Urine sed) [#/Area] Negative [facility] Glucose Ql (U) Normal Normal (<70) mg/dL [facility] Hemoglobin Ql (U) Negative Negative mg/dL [facility] Hyaline casts Auto (Urine sed) [#/Area] 6-10 Abnormal Negative /LPF [facility] Interpretation and review of laboratory results Abnormal [facility] Ketones (U) [Mass/Vol] 10 mg/dL Abnormal Negative [facility] Leukocyte esterase Test strip Ql (U) Negative Negative Teofilo/uL [facility] Mucus LM.HPF (Urine sed) [#/Area] Many Abnormal Negative /LPF [facility] Nitrite Ql (U) Negative Negative [facility] pH (U) 6.0 [pH] 5.0 - 8.0 pH [facility] Protein (U) [Mass/Vol] 30 mg/dL Abnormal Negative [facility] RBC LM.HPF (Urine sed) [#/Area] 0-2 [facility] Specific gravity (U) [Rel density] 1.044 High 1.005 - 1.030 [facility] Urobilinogen (U) [Mass/Vol] Normal Normal (0-1) mg/dL [facility] WBC LM.HPF (Urine sed) [#/Area] 3-5 [facility] Lipaseon 10-22-2023 Lipase [Catalytic activity/Vol] 574 U/L High 23 - 300 U/L [facility] Lipase [Catalytic activity/V ol]on 10-22-2023 Interpretation and review of laboratory results Abnormal [facility] Medication Assisted Treatmen t Panel (MATP)Ordered By: Ana Browne on 10-22-2023 Amphetamines Ql (U) Negative Negative [facility] Barbiturates screen method Nom (U) Negative Negative [facility] Benzodiazepines screen method Nom (U) Negative Negative [facility] BUPRENORPHINE SCREEN Negative Negative [facility] Cocaine Ql (U) Negative Negative [facility] Ethanol [Mass/Vol] Negative Negative [facility] FENTANYL Negative Negative [facility] Methadone Ql (U) Negative Negative [facility] Opiates Screen Ql (U) Negative Negative [facility] OXYCODONE/OXYMORPHONE Negative Negative [facility] PCP Negative Negative [facility] THC Negative Negative [facility] The expected value f or the drugs listed above is Negative. The following drugs or drug groups have been screened for by Immunoassay at the following thresholds: Amphetamine class(1000ng/mL) Barbituates(200ng/mL) Benzodiazepines(200ng/m L) Cocaine(300ng/mL) Ethanol (50 ng/mL) Methadone(300ng/mL) Opiates(300ng/mL) Oxycodone(100ng/mL) PCP(25ng/mL) Buprenorphine(5ng/mL) THC(50ng/mL) Fentanyl(1ng/mL) Positive results are NOT confirmed by a more specific alternative method unless requested. If confirmation is needed, request confirmation under separate order. NOTE: These results are for medical treatment only. Analysis performed using non-forensic procedures. [facility] Laboratory - Chemistry and C hemistry - challengeOrdered By: aDda Rich on 10-17-2023 Triglyceride [Mass/Vol] 197 mg/dL High NINF - 150 mg/dL [facility] Triglyceride [Mass/Vol]Order ed By: Dada Rich on 10-17-2023 Interpretation and review of laboratory results Abnormal [facility] CBC panel Auto (Bld)on 10-15 Erythrocyte distribution width (RBC) [Ratio] 14.5 % 11.5 - 15.0 % [facility] Hematocrit (Bld) [Volume fraction] 46.9 % 40.0 - 52.0 % [facility] Hemoglobin (Bld) [Mass/Vol] 15.4 g/dL 13.0 - 18.0 g/dL [facility] Interpretation and review of laboratory results Normal [facility] MCH (RBC) [Entitic mass] 31.2 pg 26.0 - 34.0 pg [facility] MCHC (RBC) [Mass/Vol] 32.8 % 30.5 - 36.0 % [facility] MCV (RBC) [Entitic vol] 94.9 fL 77.0 - 99.0 fL [facility] Platelet mean volume (Bld) [Entitic vol] 9.8 fL 9.0 - 12.7 fL [facility] Platelets (Bld) [#/Vol] 189 10*3/uL 140 - 440 10*3/uL [facility] RBC (Bld) [#/Vol] 4.94 10*6/uL 4.40 - 5.9 0 10*6/uL [facility] WBC (Bld) [#/Vol] 6.9 10*3/uL 3.6 - 10.7 10*3/uL [facility] Erythrocyte distribution width (RBC) [Ratio] 14.7 % 11.5 - 15.0 % [facility] Hematocrit (Bld) [Volume fraction] 47.2 % 40.0 - 52.0 % [facility] Hemoglobin (Bld) [Mass/Vol] 15.6 g/dL 13.0 - 18.0 g/dL [facility] Interpretation and review of laboratory results Normal [facility] MCH (RBC) [Entitic mass] 30.9 pg 26.0 - 34.0 pg [facility] MCHC (RBC) [Mass/Vol] 33.1 % 30.5 - 36.0 % [facility] MCV (RBC) [Entitic vol] 93.5 fL 77.0 - 99.0 fL [facility] Platelet mean volume (Bld) [Entitic vol] 9.8 fL 9.0 - 12.7 fL [facility] Comment on above: MPV is a calculated measurement using platelet volume ratio Platelets (Bld) [#/Vol] 208 10*3/uL 140 - 440 10*3/uL [facility] RBC (Bld) [#/Vol] 5.05 10*6/uL 4.40 - 5.9 0 10*6/uL [facility] WBC (Bld) [#/Vol] 8.9 10*3/uL 3.6 - 10.7 10*3/uL [facility] Comprehensive metabolic 1998 panelon 10-16-2023 Albumin [Mass/Vol] 4.5 g/dL 3.5 - 5.0 g/dL [facility] ALP [Catalytic activity/Vol] 158 U/L High 38 - 126 U/L [facility] ALT [Catalytic activity/Vol] 159 U/L High 0 - 49 U/L [facility] Anion gap [Moles/Vol] 9 mmol/L 3 - 13 mmol/L [facility] AST [Catalytic activity/Vol] 149 U/L High 15 - 46 U/L [facility] Bilirubin [Mass/Vol] 1.1 mg/dL 0.2 - 1 .3 mg/dL [facility] Calcium [Mass/Vol] 9.6 mg/dL 8.4 - 10. 4 mg/dL [facility] Chloride [Moles/Vol] 103 mmol/L 98 - 10 7 mmol/L [facility] CO2 [Moles/Vol] 28 mmol/L 22 - 30 mmol/L [facility] Creatinine [Mass/Vol] 0.68 mg/dL 0.66 - 1.25 mg/dL [facility] GFR/1.73 sq M.predicted (S/P/Bld) [Vol rate/Area] - PINF [facility] Comment on above: Calculation based on the Chronic Kidney Disease Epidemiology Collaboration (CKD-EPI) equation refit without adjustment for race Glucose [Mass/Vol] 104 mg/dL High 70 - 100 mg/dL [facility] Potassium [Moles/Vol] 4.1 mmol/L 3.5 - 5.1 mmol/L [facility] Protein [Mass/Vol] 8.1 g/dL 6.3 - 8.2 g/dL [facility] Sodium [Moles/Vol] 141 mmol/L 135 - 145 mmol/L [facility] Urea nitrogen [Mass/Vol] 6 mg/dL Low 9 - 20 mg/dL [facility] Albumin [Mass/Vol] 4.8 g/dL 3.5 - 5.0 g/dL [facility] ALP [Catalytic activity/Vol] 158 U/L High 38 - 126 U/L [facility] ALT [Catalytic activity/Vol] 173 U/L High 0 - 49 U/L [facility] Anion gap [Moles/Vol] 13 mmol/L 3 - 13 mmol/L [facility] AST [Catalytic activity/Vol] 235 U/L High 15 - 46 U/L [facility] Bilirubin [Mass/Vol] 0.8 mg/dL 0.2 - 1 .3 mg/dL [facility] Calcium [Mass/Vol] 9.7 mg/dL 8.4 - 10. 4 mg/dL [facility] Chloride [Moles/Vol] 100 mmol/L 98 - 10 7 mmol/L [facility] CO2 [Moles/Vol] 25 mmol/L 22 - 30 mmol/L [facility] Creatinine [Mass/Vol] 0.62 mg/dL Low 0.66 - 1.25 mg/dL [facility] GFR/1.73 sq M.predicted (S/P/Bld) [Vol rate/Area] - PINF [facility] Comment on above: Calculation based on the Chronic Kidney Disease Epidemiology Collaboration (CKD-EPI) equation refit without adjustment for race Glucose [Mass/Vol] 126 mg/dL High 70 - 100 mg/dL [facility] Interpretation and review of laboratory results Abnormal [facility] Potassium [Moles/Vol] 4.0 mmol/L 3.5 - 5.1 mmol/L [facility] Protein [Mass/Vol] 8.8 g/dL High 6.3 - 8.2 g/dL [facility] Sodium [Moles/Vol] 138 mmol/L 135 - 145 mmol/L [facility] Urea nitrogen [Mass/Vol] 5 mg/dL Low 9 - 20 mg/dL [facility] Laboratory - Chemistry and C hemistry - challengeon 10-16-2023 Lipase [Catalytic activity/Vol] 1185 U/L High 23 - 300 U/L [facility] Troponin I.cardiac [Mass/Vol] 0.016 ng/mL NINF - 0.034 ng/mL [facility] Laboratory - Chemistry and C hemistry - challengeOrdered By: Silvia Prince on 10-16-2023 Lipase [Catalytic activity/Vol] U/L High 23 - 300 U/L [facility] Lipase [Catalytic activity/V ol]Ordered By: Silvia Prince on 10-16-2023 Interpretation and review of laboratory results Abnormal [facility] Result manually entered, interpret with caution. [facility] No Panel Informationon 10-15 Interpretation and review of laboratory results Abnormal [facility] Extra Tube Hold for add-ons. [facility] Comment on above: Auto resulted. [facility] P [place] 57 degrees [facility] ME Interval 158 ms [facility] QRS [place] 9 degrees [facility] QRSD Interval 89 ms [facility] QT Interval 391 ms [facility] QTC Interval 465 ms [facility] T Wave [place] -9 degrees [facility] Sinus rhythm LVH by voltage Nonspecific T abnormalities, inferior leads - similar to prior EKG 03/15/22 Electronically Signed On 10-16-2023 02:06:16 EDT by Idris Curtis MD - 10/16/2023 IMPRESSION: Sinus rhythm LVH by voltage Nonspecific T abnormalities, inferior leads - similar to prior EKG 03/15/22 Electronically Signed On 10-16-2023 02:06:16 EDT by Idris Danielson [facility] Troponin I.cardiac [Mass/Vol ]on 10-16-2023 Interpretation and review of laboratory results Normal [facility] Patients with high levels of Biotin oral intake (ie >5 mg/day) may have falsely decreased Troponin levels. [facility] US Abdomen limitedon 024 1. Gallbladder appea rs unremarkable. 2. Fatty infiltration of the liver. Report Dictated on Electronically Signed By: Adrian Mondragon MD Electronically Signed Date/Time: 10/16/2023 1:29 PM EDT [facility] Patient Name: RORO CLAIRE : 1985 Exam Date/Time: 10/16/2023 13:03 Procedure: US ABDOMEN LIMITED Ordering Provider: ZEE MARK Reason For Exam: Patient has pancreatitis, assess for possible gallstones ULTRASOUND ABDOMEN LIMITED CLINICAL INDICATION: Pancreatitis TECHNIQUE: Ultrasound of the right upper quadrant COMPARISON: FINDINGS: Pancreas: The pancreas is obscured by bowel gas Liver: Generalized increased echogenicity likely corresponding to fatty infiltration. Normal size and contour. No focal lesion identified. Gallbladder: Normal. Per the cytometry technologist, the sonographic Li's sign was negative. Bile ducts: No intrahepatic and extrahepatic biliary dilatation Common bile duct: 3 mm Right kidney: Normal size measuring 12.1 x 6.2 x 5.5 cm. Normal parenchymal echogenicity without solid mass or hydronephrosis. Ascites: None [facility] Adrian Mondragon MD - 10/16/2023 Patient Name: RORO VALDIVIA : 1985 Exam Date/Time: 10/16/2023 13:03 Procedure: US ABDOMEN LIMITED Ordering Provider: ZEE MARK Reason For Exam: Patient has pancreatitis, assess for possible gallstones ULTRASOUND ABDOMEN LIMITED CLINICAL INDICATION: Pancreatitis TECHNIQUE: Ultrasound of the right upper quadrant COMPARISON: FINDINGS: Pancreas: The pancreas is obscured by bowel gas Liver: Generalized increased echogenicity likely corresponding to fatty infiltration. Normal size and contour. No focal lesion identified. Gallbladder: Normal. Per the cytometry technologist, the sonographic Li's sign was negative. Bile ducts: No intrahepatic and extrahepatic biliary dilatation Common bile duct: 3 mm Right kidney: Normal size measuring 12.1 x 6.2 x 5.5 cm. Normal parenchymal echogenicity without solid mass or hydronephrosis. Ascites: None IMPRESSION: 1. Gallbladder appears unremarkable. 2. Fatty infiltration of the liver. Report Dictated on Electronically Signed By: Adrian Mondragon MD Electronically Signed Date/Time: 10/16/2023 1:29 PM EDT [facility] Radiology Study observation (narrative) [facility] US Abdomen limitedOrdered By : Adrian Mondragon on 10-16-2023 [facility] Work Phone: Vital signson 10-16-2023 Heart rate 85 /min bpm [facility] Medication Assisted Treatmen t Panel (MATP)Ordered By: Kori May on 10-14-2023 Amphetamines Ql (U) Negative Negative [facility] Barbiturates screen method Nom (U) Negative Negative [facility] Benzodiazepines screen method Nom (U) Negative Negative [facility] BUPRENORPHINE SCREEN Negative Negative [facility] Cocaine Ql (U) Negative Negative [facility] Ethanol [Mass/Vol] Positive Negative [facility] FENTANYL Negative Negative [facility] Methadone Ql (U) Negative Negative [facility] Opiates Screen Ql (U) Negative Negative [facility] OXYCODONE/OXYMORPHONE Negative Negative [facility] PCP Negative Negative [facility] THC Negative Negative [facility] The expected value f or the drugs listed above is Negative. The following drugs or drug groups have been screened for by Immunoassay at the following thresholds: Amphetamine class(1000ng/mL) Barbituates(200ng/mL) Benzodiazepines(200ng/m L) Cocaine(300ng/mL) Ethanol (50 ng/mL) Methadone(300ng/mL) Opiates(300ng/mL) Oxycodone(100ng/mL) PCP(25ng/mL) Buprenorphine(5ng/mL) THC(50ng/mL) Fentanyl(1ng/mL) Positive results are NOT confirmed by a more specific alternative method unless requested. If confirmation is needed, request confirmation under separate order. NOTE: These results are for medical treatment only. Analysis performed using non-forensic procedures. [facility] CBC W Auto Differential pane l (Bld)on 2023 Basophils (Bld) [#/Vol] 0.0 10*3/uL 0.0 - 0.2 10*3/uL [facility] Basophils/100 WBC (Bld) 0.6 % 0.0 - 2.0 % [facility] Eosinophils (Bld) [#/Vol] 0.1 10*3/uL 0.0 - 0.5 10*3/uL [facility] Eosinophils/100 WBC (Bld) 0.7 % 0.0 - 6.0 % [facility] Erythrocyte distribution width (RBC) [Ratio] 14.2 % 11.5 - 15.0 % [facility] Hematocrit (Bld) [Volume fraction] 42.1 % 40.0 - 52.0 % [facility] Hemoglobin (Bld) [Mass/Vol] 14.3 g/dL 13.0 - 18.0 g/dL [facility] Immature granulocytes (Bld) [#/Vol] 0.0 10*3/uL NINF - 0.1 10*3/uL [facility] Immature granulocytes/100 WBC (Bld) 0.6 % 0.0 - 2.0 % [facility] Interpretation and review of laboratory results Normal [facility] Lymphocytes (Bld) [#/Vol] 2.6 10*3/uL 1.0 - 4.3 10*3/uL [facility] Lymphocytes/100 WBC (Bld) 39.2 % 15.0 - 45.0 % [facility] MCH (RBC) [Entitic mass] 31.2 pg 26.0 - 34.0 pg [facility] MCHC (RBC) [Mass/Vol] 34.0 % 30.5 - 36.0 % [facility] MCV (RBC) [Entitic vol] 91.7 fL 77.0 - 99.0 fL [facility] Monocytes (Bld) [#/Vol] 0.4 10*3/uL 0.0 - 0.9 10*3/uL [facility] Monocytes/100 WBC (Bld) 6.4 % 5.0 - 13.0 % [facility] Neutrophils (Bld) [#/Vol] 3.5 10*3/uL 1.8 - 7.5 10*3/uL [facility] Neutrophils/100 WBC (Bld) 52.5 % 38.0 - 82.0 % [facility] Nucleated RBC/100 WBC (Bld) [Ratio] 0.0 % [facility] Platelet mean volume (Bld) [Entitic vol] 9.5 fL 9.0 - 12.7 fL [facility] Platelets (Bld) [#/Vol] 226 10*3/uL 140 - 440 10*3/uL [facility] RBC (Bld) [#/Vol] 4.59 10*6/uL 4.40 - 5.9 0 10*6/uL [facility] WBC (Bld) [#/Vol] 6.7 10*3/uL 3.6 - 10.7 10*3/uL [facility] Comprehensive metabolic 1998 panelon 2023 Albumin [Mass/Vol] 4.7 g/dL 3.5 - 5.0 g/dL [facility] ALP [Catalytic activity/Vol] 117 U/L 38 - 126 U/L [facility] ALT [Catalytic activity/Vol] 408 U/L High 0 - 49 U/L [facility] Anion gap [Moles/Vol] 13 mmol/L 3 - 13 mmol/L [facility] AST [Catalytic activity/Vol] 364 U/L High 15 - 46 U/L [facility] Bilirubin [Mass/Vol] 0.8 mg/dL 0.2 - 1 .3 mg/dL [facility] Calcium [Mass/Vol] 9.7 mg/dL 8.4 - 10. 4 mg/dL [facility] Chloride [Moles/Vol] 100 mmol/L 98 - 10 7 mmol/L [facility] CO2 [Moles/Vol] 24 mmol/L 22 - 30 mmol/L [facility] Creatinine [Mass/Vol] 0.55 mg/dL Low 0.66 - 1.25 mg/dL [facility] GFR/1.73 sq M.predicted (S/P/Bld) [Vol rate/Area] - PINF [facility] Comment on above: Calculation based on the Chronic Kidney Disease Epidemiology Collaboration (CKD-EPI) equation refit without adjustment for race Glucose [Mass/Vol] 106 mg/dL High 70 - 100 mg/dL [facility] Interpretation and review of laboratory results Abnormal [facility] Potassium [Moles/Vol] 3.4 mmol/L Low 3.5 - 5.1 mmol/L [facility] Protein [Mass/Vol] 8.0 g/dL 6.3 - 8.2 g/dL [facility] Sodium [Moles/Vol] 137 mmol/L 135 - 145 mmol/L [facility] Urea nitrogen [Mass/Vol] 3 mg/dL Low 9 - 20 mg/dL [facility] Laboratory - Chemistry and C hemistry - challengeon 2023 Lipase [Catalytic activity/Vol] 2537 U/L High 23 - 300 U/L [facility] Lipase [Catalytic activity/V ol]on 2023 Interpretation and review of laboratory results Abnormal [facility] Urinalysis complete panel (U )Ordered By: Brandy Morelos on 2023 Bacteria LM.HPF (Urine sed) [#/Area] Negative Negative /HPF [facility] Bilirubin Ql (U) Negative Negative mg/dL [facility] Clarity (U) Clear Clear [facility] Color (U) Yellow Lt. Yellow [facility] Epithelial cells.squamous LM.HPF (Urine sed) [#/Area] 0-2 [facility] Glucose Ql (U) Normal Normal (<70) mg/dL [facility] Hemoglobin Ql (U) Negative Negative mg/dL [facility] Interpretation and review of laboratory results Abnormal [facility] Ketones (U) [Mass/Vol] Negative Negat chan mg/dL [facility] Leukocyte esterase Test strip Ql (U) Negative Negative Teofilo/uL [facility] Mucus LM.HPF (Urine sed) [#/Area] Moderate Abnormal Negative /LPF [facility] Nitrite Ql (U) Negative Negative [facility] pH (U) 6.0 [pH] 5.0 - 8.0 pH [facility] Protein (U) [Mass/Vol] 10 mg/dL Abnormal Negative [facility] RBC LM.HPF (Urine sed) [#/Area] 0-2 [facility] Specific gravity (U) [Rel density] 1.020 1.005 - 1.030 [facility] Urobilinogen (U) [Mass/Vol] Normal Normal (0-1) mg/dL [facility] WBC LM.HPF (Urine sed) [#/Area] 0-2 [facility] MEDICATION ASSISTED TREATMEN T PANELOrdered By: Kori May on 09-23-2023 Amphetamines Ql (U) Negative Negative [facility] Barbiturates screen method Nom (U) Positive Negative [facility] Benzodiazepines screen method Nom (U) Negative Negative [facility] BUPRENORPHINE SCREEN Positive Negative [facility] Cocaine Ql (U) Negative Negative [facility] Ethanol [Mass/Vol] Negative Negative [facility] FENTANYL Negative Negative [facility] Methadone Ql (U) Negative Negative [facility] Opiates Screen Ql (U) Negative Negative [facility] OXYCODONE/OXYMORPHONE Negative Negative [facility] PCP Negative Negative [facility] THC Positive Negative [facility] The expected value f or the drugs listed above is Negative. The following drugs or drug groups have been screened for by Immunoassay at the following thresholds: Amphetamine class(1000ng/mL) Barbituates(200ng/mL) Benzodiazepines(200ng/m L) Cocaine(300ng/mL) Ethanol (50 ng/mL) Methadone(300ng/mL) Opiates(300ng/mL) Oxycodone(100ng/mL) PCP(25ng/mL) Buprenorphine(5ng/mL) THC(50ng/mL) Fentanyl(1ng/mL) Positive results are NOT confirmed by a more specific alternative method unless requested. If confirmation is needed, request confirmation under separate order. NOTE: These results are for medical treatment only. Analysis performed using non-forensic procedures. [facility] Medication Assisted Treatmen t Panel (MATP)Ordered By: Ana Browne on 08-19-2023 Amphetamines Ql (U) Negative Negative [facility] Barbiturates screen method Nom (U) Positive Negative [facility] Benzodiazepines screen method Nom (U) Negative Negative [facility] BUPRENORPHINE SCREEN Positive Negative [facility] Cocaine Ql (U) Negative Negative [facility] Ethanol [Mass/Vol] Negative Negative [facility] FENTANYL Negative Negative [facility] Methadone Ql (U) Negative Negative [facility] Opiates Screen Ql (U) Negative Negative [facility] OXYCODONE/OXYMORPHONE Negative Negative [facility] PCP Negative Negative [facility] THC Negative Negative [facility] The expected value f or the drugs listed above is Negative. The following drugs or drug groups have been screened for by Immunoassay at the following thresholds: Amphetamine class(1000ng/mL) Barbituates(200ng/mL) Benzodiazepines(200ng/m L) Cocaine(300ng/mL) Ethanol (50 ng/mL) Methadone(300ng/mL) Opiates(300ng/mL) Oxycodone(100ng/mL) PCP(25ng/mL) Buprenorphine(5ng/mL) THC(50ng/mL) Fentanyl(1ng/mL) Positive results are NOT confirmed by a more specific alternative method unless requested. If confirmation is needed, request confirmation under separate order. NOTE: These results are for medical treatment only. Analysis performed using non-forensic procedures. [facility] - Drug toxicology Ordered By: Connie Da Silva on 08-11-2023 Amphetamines Screen method >1000 ng/mL Ql (U) Negative [facility] Barbiturates Screen method >200 ng/mL Ql (U) Negative [facility] Benzodiazepines Ql (U) Negative [facility] Methadone Screen Ql (U) Negative [facility] Opiates Screen Ql (U) Negative [facility] oxyCODONE Ql (U) Negative [facility] Phencyclidine Ql (U) Negative [facility] No Panel InformationOrdered By: Cory Baldomero on 08-11-2023 BUPRENORPHINE SCREEN Negative Negative [facility] Buprenorphine (Suboxone) has been screened for by Immunoassay at 5 ng/mL threshold. POSITIVE results are not confirmed by a more specific alternative method unless requested. If confirmation is needed, request confirmation under separate order. NOTE: These results are for medical treatment only. Analysis performed using non-forensic procedures. [facility] No Panel InformationOrdered By: Connie Da Silva on 08-11-2023 COCAINE METAB. SCREEN Negative [facility] The expected value f or all of the drugs listed above is Negative. The following drugs or drug groups have been screened for by Immunoassay at the following thresholds: Amphetamine class (1000 ng/mL) Barbiturates (200 ng/mL) Benzodiazepines (200 ng/mL) Cocaine (300 ng/mL) Methadone (300 ng/mL) Opiates (300 ng/mL) Oxycodone (100 ng/mL) PCP (25 ng/mL) NOTE: These results are for medical treatment only. Analysis performed using non-forensic procedures. POSITIVE results are NOT confirmed by a more specific alternative method unless requested. If confirmation is needed, request confirmation under separate order. [facility] Urinalysis complete panel (U )on 08-11-2023 Bilirubin Ql (U) Negative Negative mg/dL [facility] Clarity (U) Clear Clear [facility] Color (U) Light Yellow Lt. Yellow [facility] Glucose Ql (U) Normal Normal (<70) mg/dL [facility] Hemoglobin Ql (U) Negative Negative mg/dL [facility] Interpretation and review of laboratory results Normal [facility] Ketones (U) [Mass/Vol] Negative Negat chan mg/dL [facility] Leukocyte esterase Test strip Ql (U) Negative Negative Teofilo/uL [facility] Nitrite Ql (U) Negative Negative [facility] pH (U) 6.0 [pH] 5.0 - 8.0 pH [facility] Protein (U) [Mass/Vol] Negative Negat chan mg/dL [facility] Specific gravity (U) [Rel density] 1.008 1.005 - 1.030 [facility] Urobilinogen (U) [Mass/Vol] Normal Normal (0-1) mg/dL [facility] CBC W Auto Differential pane l (Bld)Ordered By: Zoey Delaney on 08-10-2023 Erythrocyte distribution width (RBC) [Ratio] 14.7 % 11.5 - 15.0 % [facility] Hematocrit (Bld) [Volume fraction] 46.8 % 40.0 - 52.0 % [facility] Hemoglobin (Bld) [Mass/Vol] 15.6 g/dL 13.0 - 18.0 g/dL [facility] Interpretation and review of laboratory results Normal [facility] MCH (RBC) [Entitic mass] 31.0 pg 26.0 - 34.0 pg [facility] MCHC (RBC) [Mass/Vol] 33.3 % 30.5 - 36.0 % [facility] MCV (RBC) [Entitic vol] 93.0 fL 77.0 - 99.0 fL [facility] Platelet mean volume (Bld) [Entitic vol] 9.3 fL 9.0 - 12.7 fL [facility] Platelets (Bld) [#/Vol] 273 10*3/uL 140 - 440 10*3/uL [facility] RBC (Bld) [#/Vol] 5.03 10*6/uL 4.40 - 5.9 0 10*6/uL [facility] WBC (Bld) [#/Vol] 9.9 10*3/uL 3.6 - 10.7 10*3/uL [facility] CK [Catalytic activity/Vol]o n 08-10-2023 Interpretation and review of laboratory results Normal [facility] Comprehensive metabolic 1998 panelon 08-10-2023 Albumin [Mass/Vol] 5.0 g/dL 3.5 - 5.0 g/dL [facility] ALP [Catalytic activity/Vol] 135 U/L High 38 - 126 U/L [facility] ALT [Catalytic activity/Vol] 176 U/L High 0 - 49 U/L [facility] Anion gap [Moles/Vol] 22 mmol/L High 3 - 13 mmol/L [facility] AST [Catalytic activity/Vol] 237 U/L High 15 - 46 U/L [facility] Bilirubin [Mass/Vol] 0.7 mg/dL 0.2 - 1 .3 mg/dL [facility] Calcium [Mass/Vol] 9.1 mg/dL 8.4 - 10. 4 mg/dL [facility] Chloride [Moles/Vol] 105 mmol/L 98 - 10 7 mmol/L [facility] CO2 [Moles/Vol] 18 mmol/L Low 22 - 30 mmol/L [facility] Creatinine [Mass/Vol] 0.78 mg/dL 0.66 - 1.25 mg/dL [facility] GFR/1.73 sq M.predicted MDRD (S/P/Bld) [Vol rate/Area] - PINF [facility] Comment on above: Calculation based on the Chronic Kidney Disease Epidemiology Collaboration (CKD-EPI) equation refit without adjustment for race Glucose [Mass/Vol] 112 mg/dL High 70 - 100 mg/dL [facility] Interpretation and review of laboratory results Abnormal [facility] Potassium [Moles/Vol] 3.8 mmol/L 3.5 - 5.1 mmol/L [facility] Protein [Mass/Vol] 8.8 g/dL High 6.3 - 8.2 g/dL [facility] Sodium [Moles/Vol] 145 mmol/L 135 - 145 mmol/L [facility] Urea nitrogen [Mass/Vol] 5 mg/dL Low 9 - 20 mg/dL [facility] Ethanol (Bld) [Mass/Vol]Orde red By: Amber Junior on 08-10-2023 Ethanol [Mass/Vol] 0.392 g/dL Critically high 0.000 - 0.010 g/dL [facility] Interpretation and review of laboratory results Abnormal [facility] Laboratory - Chemistry and C hemistry - challengeon 08-10-2023 Lipase [Catalytic activity/Vol] 246 U/L 23 - 300 U/L [facility] Beta hydroxybutyrate [Mass/Vol] 1.76 mg/dL 0.20 - 2.81 mg/dL [facility] CK [Catalytic activity/Vol] 125 U/L 30 - 170 U/L [facility] Laboratory - Chemistry and C hemistry - challengeOrdered By: Frances Eisenberg on 08-10-2023 Base excess Calc (BldV) [Moles/Vol] -1.7000 mmol/L -3.0 - 3.0 mmol/L [facility] CO2 (BldV) [Partial pressure] 38.1 mm[Hg] Low [facility] CO2 [Moles/Vol] 24.0 mmol/L 24.0 - 28.0 mmol/L [facility] HCO3 (Bld) [Moles/Vol] 22.8 mmol/L Low 23.0 - 27.0 mmol/L [facility] Oxygen (BldV) [Partial pressure] 55.0 mm[Hg] mm Hg [facility] pH (BldV) 7.395 [pH] 7.330 - 7.430 [facility] Laboratory - Hematology and Cell countsOrdered By: Frances Eisenberg on 08-10-2023 Hemoglobin (Bld) [Mass/Vol] 15.8 g/dL Screen only [facility] - Hematology and Cell countson 08-10-2023 Anisocytosis Ql (Bld) Slight Abnormal (none) [facility] Band form neutrophils (Bld) [#/Vol] 0.2 10*3/uL High NINF - 0.0 10*3/uL [facility] Band form neutrophils/100 WBC (Bld) 2 % High NINF - 0 % [facility] Dominic cells LM Ql (Bld) Rare Abnormal (none) [facility] Lymphocytes (Bld) [#/Vol] 4.9 10*3/uL High 1.0 - 4.3 10*3/uL [facility] Lymphocytes/100 WBC (Bld) 49 % High 15 - 45 % [facility] Macrocytes Ql (Bld) Slight Abnormal (none) [facility] Monocytes (Bld) [#/Vol] 0.5 10*3/uL 0.0 - 0.9 10*3/uL [facility] Monocytes/100 WBC (Bld) 5 % 5 - 13 % [facility] Neutrophils (Bld) [#/Vol] 3.9 10*3/uL 1.8 - 7.5 10*3/uL [facility] Poikilocytosis LM Ql (Bld) Rare Abnormal (none) [facility] Polychromasia LM Ql (Bld) Rare Abnormal (none) [facility] RBC morphology finding Nom (Bld) abnormal [facility] Segmented neutrophils/100 WBC (Bld) 37 % Low 38 - 82 % [facility] Variant lymphocytes (Bld) [#/Vol] 0.8 10*3/uL High NINF - 0.0 10*3/uL [facility] Variant lymphocytes/100 WBC (Bld) 8 % High NINF - 0 % [facility] Laboratory - Microbiology an d Antimicrobial susceptibilityOrdered By: Marilynn Flaherty on 08-10-2023 SARS-CoV-2 (COVID-19) Ag IA.rapid Ql (Resp) Negative Negative [facility] Comment on above: A negative result do es not rule out the possibility of SARS-CoV-2 infection. NAAT-based methods should be considered for symptomatic patients presenting greater than seven days after onset of symptoms. Method: Lateral flow immunoassay. Fact sheets for healthcare providers and patients can be found at the following sites: https://www.fda.gov/media/944681/download https://www.fda.gov/media/435998/download Lipase [Catalytic activity/V ol]on 08-10-2023 Interpretation and review of laboratory results Normal [facility] No Panel InformationOrdered By: Frances Eisenberg on 08-10-2023 Interpretation and review of laboratory results Abnormal [facility] Source Of Oxygen Room Air [facility] Assessment of oxygenation is best done with an arterial blood gas determination. Reference ranges for pO2, bicarbonate, and base excess are for mixed venous blood. Specimens drawn from a peripheral vein will often have higher values. [facility] No Panel Informationon 08-09 Interpretation and review of laboratory results Normal [facility] Atypical Lymphocytes Manual 8 [facility] Bands Manual 2 [facility] Basophils Manual [facility] Blasts Manual [facility] Eosinophils Manual [facility] Interpretation and review of laboratory results Abnormal [facility] Lymphocytes Manual 49 [facility] Metamyelocytes Manual [facility] Monocytes Manual 5 [facility] Myelocytes Manual [facility] Neutrophils Manual 37 [facility] Promyelocytes Manual [facility] Unclassified Cells, Manual [facility] SARS-CoV-2 (COVID-19) Ag IA. rapid Ql (Resp)Ordered By: Marilynn Flaherty on 08-10-2023 Interpretation and review of laboratory results Normal [facility] Vital signsOrdered By: Nedra Eisenberg on 08-10-2023 Oxygen saturation in Venous blood 84.7 % [facility] CBC W Auto Differential pane l (Bld)on 06-28-2023 Basophils (Bld) [#/Vol] 0.0 10*3/uL 0.0 - 0.2 10*3/uL [facility] Basophils/100 WBC (Bld) 0.7 % 0.0 - 2.0 % [facility] Eosinophils (Bld) [#/Vol] 0.1 10*3/uL 0.0 - 0.5 10*3/uL [facility] Eosinophils/100 WBC (Bld) 2.4 % 0.0 - 6.0 % [facility] Erythrocyte distribution width (RBC) [Ratio] 15.0 % 11.5 - 15.0 % [facility] Hematocrit (Bld) [Volume fraction] 37.8 % Low 40.0 - 52.0 % [facility] Hemoglobin (Bld) [Mass/Vol] 12.8 g/dL Low 13.0 - 18.0 g/dL [facility] Immature granulocytes (Bld) [#/Vol] 0.0 10*3/uL NINF - 0.1 10*3/uL [facility] Immature granulocytes/100 WBC (Bld) 0.7 % 0.0 - 2.0 % [facility] Interpretation and review of laboratory results Abnormal [facility] IPF 5 [facility] Lymphocytes (Bld) [#/Vol] 2.2 10*3/uL 1.0 - 4.3 10*3/uL [facility] Lymphocytes/100 WBC (Bld) 49.3 % High 15.0 - 45.0 % [facility] MCH (RBC) [Entitic mass] 30.4 pg 26.0 - 34.0 pg [facility] MCHC (RBC) [Mass/Vol] 33.9 % 30.5 - 36.0 % [facility] MCV (RBC) [Entitic vol] 89.8 fL 77.0 - 99.0 fL [facility] Monocytes (Bld) [#/Vol] 0.3 10*3/uL 0.0 - 0.9 10*3/uL [facility] Monocytes/100 WBC (Bld) 6.9 % 5.0 - 13.0 % [facility] Neutrophils (Bld) [#/Vol] 1.8 10*3/uL 1.8 - 7.5 10*3/uL [facility] Neutrophils/100 WBC (Bld) 40.0 % 38.0 - 82.0 % [facility] Nucleated RBC/100 WBC (Bld) [Ratio] 0.0 % [facility] Platelet mean volume (Bld) [Entitic vol] 10.4 fL 9.0 - 12.7 fL [facility] Platelets (Bld) [#/Vol] 136 10*3/uL Low 140 - 440 10*3/uL [facility] RBC (Bld) [#/Vol] 4.21 10*6/uL Low 4.40 - 5.9 0 10*6/uL [facility] WBC (Bld) [#/Vol] 4.5 10*3/uL 3.6 - 10.7 10*3/uL [facility] Comprehensive metabolic 1998 panelon 06-28-2023 Albumin [Mass/Vol] 3.7 g/dL 3.5 - 5.0 g/dL [facility] ALP [Catalytic activity/Vol] 102 U/L 38 - 126 U/L [facility] ALT [Catalytic activity/Vol] 178 U/L High 0 - 49 U/L [facility] Anion gap [Moles/Vol] 7 mmol/L 3 - 13 mmol/L [facility] AST [Catalytic activity/Vol] 186 U/L High 15 - 46 U/L [facility] Bilirubin [Mass/Vol] 0.7 mg/dL 0.2 - 1 .3 mg/dL [facility] Calcium [Mass/Vol] 8.7 mg/dL 8.4 - 10. 4 mg/dL [facility] Chloride [Moles/Vol] 107 mmol/L 98 - 10 7 mmol/L [facility] CO2 [Moles/Vol] 22 mmol/L 22 - 30 mmol/L [facility] Creatinine [Mass/Vol] 0.62 mg/dL Low 0.66 - 1.25 mg/dL [facility] GFR/1.73 sq M.predicted MDRD (S/P/Bld) [Vol rate/Area] - PINF [facility] Comment on above: Calculation based on the Chronic Kidney Disease Epidemiology Collaboration (CKD-EPI) equation refit without adjustment for race Glucose [Mass/Vol] 108 mg/dL High 70 - 100 mg/dL [facility] Interpretation and review of laboratory results Abnormal [facility] Potassium [Moles/Vol] 4.1 mmol/L 3.5 - 5.1 mmol/L [facility] Protein [Mass/Vol] 6.9 g/dL 6.3 - 8.2 g/dL [facility] Sodium [Moles/Vol] 135 mmol/L 135 - 145 mmol/L [facility] Urea nitrogen [Mass/Vol] 4 mg/dL Low 9 - 20 mg/dL [facility] CBC W Auto Differential pane l (Bld)on 06-27-2023 Basophils (Bld) [#/Vol] 0.0 10*3/uL 0.0 - 0.2 10*3/uL [facility] Basophils/100 WBC (Bld) 0.6 % 0.0 - 2.0 % [facility] Eosinophils (Bld) [#/Vol] 0.1 10*3/uL 0.0 - 0.5 10*3/uL [facility] Eosinophils/100 WBC (Bld) 1.2 % 0.0 - 6.0 % [facility] Erythrocyte distribution width (RBC) [Ratio] 14.6 % 11.5 - 15.0 % [facility] Hematocrit (Bld) [Volume fraction] 39.1 % Low 40.0 - 52.0 % [facility] Hemoglobin (Bld) [Mass/Vol] 13.0 g/dL 13.0 - 18.0 g/dL [facility] Immature granulocytes (Bld) [#/Vol] 0.0 10*3/uL NINF - 0.1 10*3/uL [facility] Immature granulocytes/100 WBC (Bld) 0.4 % 0.0 - 2.0 % [facility] Interpretation and review of laboratory results Abnormal [facility] IPF 5 [facility] Lymphocytes (Bld) [#/Vol] 2.3 10*3/uL 1.0 - 4.3 10*3/uL [facility] Lymphocytes/100 WBC (Bld) 48.2 % High 15.0 - 45.0 % [facility] MCH (RBC) [Entitic mass] 29.8 pg 26.0 - 34.0 pg [facility] MCHC (RBC) [Mass/Vol] 33.2 % 30.5 - 36.0 % [facility] MCV (RBC) [Entitic vol] 89.7 fL 77.0 - 99.0 fL [facility] Monocytes (Bld) [#/Vol] 0.3 10*3/uL 0.0 - 0.9 10*3/uL [facility] Monocytes/100 WBC (Bld) 7.0 % 5.0 - 13.0 % [facility] Neutrophils (Bld) [#/Vol] 2.1 10*3/uL 1.8 - 7.5 10*3/uL [facility] Neutrophils/100 WBC (Bld) 42.6 % 38.0 - 82.0 % [facility] Nucleated RBC/100 WBC (Bld) [Ratio] 0.0 % [facility] Platelet mean volume (Bld) [Entitic vol] 10.1 fL 9.0 - 12.7 fL [facility] Platelets (Bld) [#/Vol] 135 10*3/uL Low 140 - 440 10*3/uL [facility] RBC (Bld) [#/Vol] 4.36 10*6/uL Low 4.40 - 5.9 0 10*6/uL [facility] WBC (Bld) [#/Vol] 4.9 10*3/uL 3.6 - 10.7 10*3/uL [facility] Comprehensive metabolic 1998 panelon 06-27-2023 Albumin [Mass/Vol] 4.0 g/dL 3.5 - 5.0 g/dL [facility] ALP [Catalytic activity/Vol] 107 U/L 38 - 126 U/L [facility] ALT [Catalytic activity/Vol] 165 U/L High 0 - 49 U/L [facility] Anion gap [Moles/Vol] 8 mmol/L 3 - 13 mmol/L [facility] AST [Catalytic activity/Vol] 169 U/L High 15 - 46 U/L [facility] Bilirubin [Mass/Vol] 0.7 mg/dL 0.2 - 1 .3 mg/dL [facility] Calcium [Mass/Vol] 8.9 mg/dL 8.4 - 10. 4 mg/dL [facility] Chloride [Moles/Vol] 105 mmol/L 98 - 10 7 mmol/L [facility] CO2 [Moles/Vol] 22 mmol/L 22 - 30 mmol/L [facility] Creatinine [Mass/Vol] 0.72 mg/dL 0.66 - 1.25 mg/dL [facility] GFR/1.73 sq M.predicted MDRD (S/P/Bld) [Vol rate/Area] - PINF [facility] Comment on above: Calculation based on the Chronic Kidney Disease Epidemiology Collaboration (CKD-EPI) equation refit without adjustment for race Glucose [Mass/Vol] 97 mg/dL 70 - 100 mg/dL [facility] Interpretation and review of laboratory results Abnormal [facility] Potassium [Moles/Vol] 4.0 mmol/L 3.5 - 5.1 mmol/L [facility] Protein [Mass/Vol] 7.0 g/dL 6.3 - 8.2 g/dL [facility] Sodium [Moles/Vol] 135 mmol/L 135 - 145 mmol/L [facility] Urea nitrogen [Mass/Vol] 5 mg/dL Low 9 - 20 mg/dL [facility] CBC W Auto Differential pane l (Bld)on 06-26-2023 Basophils (Bld) [#/Vol] 0.0 10*3/uL 0.0 - 0.2 10*3/uL [facility] Basophils/100 WBC (Bld) 0.6 % 0.0 - 2.0 % [facility] Eosinophils (Bld) [#/Vol] 0.1 10*3/uL 0.0 - 0.5 10*3/uL [facility] Eosinophils/100 WBC (Bld) 1.3 % 0.0 - 6.0 % [facility] Erythrocyte distribution width (RBC) [Ratio] 14.7 % 11.5 - 15.0 % [facility] Hematocrit (Bld) [Volume fraction] 37.9 % Low 40.0 - 52.0 % [facility] Hemoglobin (Bld) [Mass/Vol] 12.7 g/dL Low 13.0 - 18.0 g/dL [facility] Immature granulocytes (Bld) [#/Vol] 0.0 10*3/uL NINF - 0.1 10*3/uL [facility] Immature granulocytes/100 WBC (Bld) 0.4 % 0.0 - 2.0 % [facility] Interpretation and review of laboratory results Abnormal [facility] Lymphocytes (Bld) [#/Vol] 2.5 10*3/uL 1.0 - 4.3 10*3/uL [facility] Lymphocytes/100 WBC (Bld) 52.5 % High 15.0 - 45.0 % [facility] MCH (RBC) [Entitic mass] 29.5 pg 26.0 - 34.0 pg [facility] MCHC (RBC) [Mass/Vol] 33.5 % 30.5 - 36.0 % [facility] MCV (RBC) [Entitic vol] 88.1 fL 77.0 - 99.0 fL [facility] Monocytes (Bld) [#/Vol] 0.3 10*3/uL 0.0 - 0.9 10*3/uL [facility] Monocytes/100 WBC (Bld) 6.3 % 5.0 - 13.0 % [facility] Neutrophils (Bld) [#/Vol] 1.9 10*3/uL 1.8 - 7.5 10*3/uL [facility] Neutrophils/100 WBC (Bld) 38.9 % 38.0 - 82.0 % [facility] Nucleated RBC/100 WBC (Bld) [Ratio] 0.0 % [facility] Platelet mean volume (Bld) [Entitic vol] 10.1 fL 9.0 - 12.7 fL [facility] Platelets (Bld) [#/Vol] 153 10*3/uL 140 - 440 10*3/uL [facility] RBC (Bld) [#/Vol] 4.30 10*6/uL Low 4.40 - 5.9 0 10*6/uL [facility] WBC (Bld) [#/Vol] 4.8 10*3/uL 3.6 - 10.7 10*3/uL [facility] Comprehensive metabolic 1998 panelon 06-26-2023 Albumin [Mass/Vol] 3.9 g/dL 3.5 - 5.0 g/dL [facility] ALP [Catalytic activity/Vol] 104 U/L 38 - 126 U/L [facility] ALT [Catalytic activity/Vol] 143 U/L High 0 - 49 U/L [facility] Anion gap [Moles/Vol] 9 mmol/L 3 - 13 mmol/L [facility] AST [Catalytic activity/Vol] 119 U/L High 15 - 46 U/L [facility] Bilirubin [Mass/Vol] 1.0 mg/dL 0.2 - 1 .3 mg/dL [facility] Calcium [Mass/Vol] 9.0 mg/dL 8.4 - 10. 4 mg/dL [facility] Chloride [Moles/Vol] 103 mmol/L 98 - 10 7 mmol/L [facility] CO2 [Moles/Vol] 22 mmol/L 22 - 30 mmol/L [facility] Creatinine [Mass/Vol] 0.67 mg/dL 0.66 - 1.25 mg/dL [facility] GFR/1.73 sq M.predicted MDRD (S/P/Bld) [Vol rate/Area] - PINF [facility] Comment on above: Calculation based on the Chronic Kidney Disease Epidemiology Collaboration (CKD-EPI) equation refit without adjustment for race Glucose [Mass/Vol] 108 mg/dL High 70 - 100 mg/dL [facility] Interpretation and review of laboratory results Abnormal [facility] Potassium [Moles/Vol] 3.7 mmol/L 3.5 - 5.1 mmol/L [facility] Protein [Mass/Vol] 7.1 g/dL 6.3 - 8.2 g/dL [facility] Sodium [Moles/Vol] 134 mmol/L Low 135 - 145 mmol/L [facility] Urea nitrogen [Mass/Vol] 7 mg/dL Low 9 - 20 mg/dL [facility] CBC W Auto Differential pane l (Bld)Ordered By: Megha Lopez on 06-25-2023 Basophils (Bld) [#/Vol] 0.0 10*3/uL 0.0 - 0.2 10*3/uL [facility] Basophils/100 WBC (Bld) 0.6 % 0.0 - 2.0 % [facility] Eosinophils (Bld) [#/Vol] 0.0 10*3/uL 0.0 - 0.5 10*3/uL [facility] Eosinophils/100 WBC (Bld) 0.6 % 0.0 - 6.0 % [facility] Erythrocyte distribution width (RBC) [Ratio] 14.9 % 11.5 - 15.0 % [facility] Hematocrit (Bld) [Volume fraction] 38.4 % Low 40.0 - 52.0 % [facility] Hemoglobin (Bld) [Mass/Vol] 12.6 g/dL Low 13.0 - 18.0 g/dL [facility] Immature granulocytes (Bld) [#/Vol] 0.0 10*3/uL NINF - 0.1 10*3/uL [facility] Immature granulocytes/100 WBC (Bld) 0.4 % 0.0 - 2.0 % [facility] Interpretation and review of laboratory results Abnormal [facility] Lymphocytes (Bld) [#/Vol] 2.3 10*3/uL 1.0 - 4.3 10*3/uL [facility] Lymphocytes/100 WBC (Bld) 46.7 % High 15.0 - 45.0 % [facility] MCH (RBC) [Entitic mass] 29.0 pg 26.0 - 34.0 pg [facility] MCHC (RBC) [Mass/Vol] 32.8 % 30.5 - 36.0 % [facility] MCV (RBC) [Entitic vol] 88.3 fL 77.0 - 99.0 fL [facility] Monocytes (Bld) [#/Vol] 0.4 10*3/uL 0.0 - 0.9 10*3/uL [facility] Monocytes/100 WBC (Bld) 7.8 % 5.0 - 13.0 % [facility] Neutrophils (Bld) [#/Vol] 2.2 10*3/uL 1.8 - 7.5 10*3/uL [facility] Neutrophils/100 WBC (Bld) 43.9 % 38.0 - 82.0 % [facility] Nucleated RBC/100 WBC (Bld) [Ratio] 0.0 % [facility] Platelet mean volume (Bld) [Entitic vol] 10.0 fL 9.0 - 12.7 fL [facility] Platelets (Bld) [#/Vol] 172 10*3/uL 140 - 440 10*3/uL [facility] RBC (Bld) [#/Vol] 4.35 10*6/uL Low 4.40 - 5.9 0 10*6/uL [facility] WBC (Bld) [#/Vol] 5.0 10*3/uL 3.6 - 10.7 10*3/uL [facility] CK [Catalytic activity/Vol]o n 06-25-2023 Interpretation and review of laboratory results Normal [facility] Cobalamin (Vitamin B12) [Mas s/Vol]on 06-25-2023 Interpretation and review of laboratory results Normal [facility] Comprehensive metabolic 1998 panelon 06-25-2023 Albumin [Mass/Vol] 4.0 g/dL 3.5 - 5.0 g/dL [facility] ALP [Catalytic activity/Vol] 97 U/L 38 - 126 U/L [facility] ALT [Catalytic activity/Vol] 179 U/L High 0 - 49 U/L [facility] Anion gap [Moles/Vol] 10 mmol/L 3 - 13 mmol/L [facility] AST [Catalytic activity/Vol] 145 U/L High 15 - 46 U/L [facility] Bilirubin [Mass/Vol] 0.8 mg/dL 0.2 - 1 .3 mg/dL [facility] Calcium [Mass/Vol] 8.1 mg/dL Low 8.4 - 10. 4 mg/dL [facility] Chloride [Moles/Vol] 109 mmol/L High 98 - 10 7 mmol/L [facility] CO2 [Moles/Vol] 19 mmol/L Low 22 - 30 mmol/L [facility] Creatinine [Mass/Vol] 0.69 mg/dL 0.66 - 1.25 mg/dL [facility] GFR/1.73 sq M.predicted MDRD (S/P/Bld) [Vol rate/Area] - PINF [facility] Comment on above: Calculation based on the Chronic Kidney Disease Epidemiology Collaboration (CKD-EPI) equation refit without adjustment for race Glucose [Mass/Vol] 101 mg/dL High 70 - 100 mg/dL [facility] Interpretation and review of laboratory results Abnormal [facility] Potassium [Moles/Vol] 4.4 mmol/L 3.5 - 5.1 mmol/L [facility] Protein [Mass/Vol] 7.2 g/dL 6.3 - 8.2 g/dL [facility] Sodium [Moles/Vol] 139 mmol/L 135 - 145 mmol/L [facility] Urea nitrogen [Mass/Vol] 6 mg/dL Low 9 - 20 mg/dL [facility] HCV Ab IA Qlon 06-25-2023 Interpretation and review of laboratory results Normal [facility] HIV 1+2 Ab+HIV1 p24 Ag IA Ql Ordered By: Vidhi Hopkins on 06-25-2023 Interpretation and review of laboratory results Normal [facility] Laboratory - Chemistry and C hemistry - challengeon 06-25-2023 Average glucose Estimated from glycated hemoglobin (Bld) [Mass/Vol] 117 mg/dL [facility] Cobalamin (Vitamin B12) [Mass/Vol] 517 pg/mL 239 - 931 pg/mL [facility] TSH Qn 1.435 m[IU]/L [facility] Magnesium [Mass/Vol] 2.0 mg/dL 1.6 - 2 .3 mg/dL [facility] CK [Catalytic activity/Vol] 143 U/L 30 - 170 U/L [facility] Lactate [Moles/Vol] 1.5 mmol/L 0.7 - 2. 0 mmol/L [facility] Laboratory - Coagulationon 0 06-25-2023 aPTT Coag (PPP) [Time] 24.8 s 20.0 - 30.5 s [facility] INR Coag (PPP) [Relative time] 1.0 {INR} 0.9 - 1.1 [facility] Comment on above: Recommended Anticoag ulant Therapy: SEE BELOW ----- INR of 2.0 - 3.0 : - Prophylaxis of Venous Thrombosis (high-risk surgery) - Treatment of Venous Thrombosis - Treatment of Pulmonary Embolism (Includes tissue heart valves, Acute Myocardial Infarction to prevent systemic embolism, Valvular Heart Disease, and Atrial Fibrillation) ----- INR of 2.5 - 3.5 : - Mechanical Prosthetic Valves (high risk) - If oral anticoagulant therapy is used to prevent Myocardial Infarction PT Coag (Bld) [Time] 11.2 s 9.0 - 12.0 s [facility] Laboratory - Hematology and Cell countson 06-25-2023 HbA1c (Bld) [Mass fraction] 5.7 % High NINF - 5.7 % [facility] Comment on above: Normal less than 5.7 % Prediabetes 5.7% to 6.4% Diabetes 6.5% or higher --HgbA1C levels may not be accurate in patients who have renal disease, received recent blood transfusions, are anemic, or who have dyshemoglobinemia. Laboratory - Microbiology an d Antimicrobial susceptibilityOrdered By: Vidhi Hopkins on 06-25-2023 HIV 1+2 Ab+HIV1 p24 Ag IA Ql Non-Reactive Nonreactive [facility] Comment on above: The specimen was non -reactive for HIV-1 and HIV-2 antibodies and p24 antigen using an FDA-cleared 4th generation HIV test. Based on this non-reactive screen result, further reflexive testing was not indicated and was, therefore, not performed. Laboratory - Microbiology an d Antimicrobial susceptibilityon 06-25-2023 HCV Ab IA Ql Not detected Not Detected [facility] Comment on above: Patients with DETECT ED Hepatitis C Ab results should have a new specimen submitted for supplemental testing with a Hepatitis C Quantitative RNA assay (viral load), if clinically indicated. No Panel Informationon 06-24 Interpretation and review of laboratory results Abnormal [facility] Interpretation and review of laboratory results Normal [facility] Interpretation and review of laboratory results Normal [facility] Interpretation and review of laboratory results Normal [facility] No Panel InformationOrdered By: Margie Guerra on 06-25-2023 BUPRENORPHINE SCREEN Negative Negative [facility] Buprenorphine (Suboxone) has been screened for by Immunoassay at 5 ng/mL threshold. POSITIVE results are not confirmed by a more specific alternative method unless requested. If confirmation is needed, request confirmation under separate order. NOTE: These results are for medical treatment only. Analysis performed using non-forensic procedures. [facility] No Panel InformationOrdered By: Phu Vitale on 06-25-2023 ACETONE, SERUM Not detected Toxic > 20 Reporting Limit 5 mg/dL mg/dL [facility] ETHANOL, SERUM 0.176 Reporting Limit 0.01 g/dL g/dL (W/V) [facility] ISOPROPANOL, SERUM Not detected Toxic > 2 0 Reporting Limit 5 mg/dL mg/dL [facility] METHANOL, SERUM Not detected Toxic > 20 mg/dL, Reporting Limit 5 mg/dL mg/dL [facility] Phosphate [Moles/Vol]on 06-09 Phosphate [Mass/Vol] 3.8 mg/dL 2.5 - 4 .5 mg/dL [facility] TSH Qnon 06-25-2023 Interpretation and review of laboratory results Normal [facility] Acetaminophen [Mass/Vol]on 0 06-24-2023 Interpretation and review of laboratory results Abnormal [facility] CBC W Auto Differential pane l (Bld)on 06-24-2023 Basophils (Bld) [#/Vol] 0.1 10*3/uL 0.0 - 0.2 10*3/uL [facility] Basophils/100 WBC (Bld) 0.6 % 0.0 - 2.0 % [facility] Eosinophils (Bld) [#/Vol] 0.0 10*3/uL 0.0 - 0.5 10*3/uL [facility] Eosinophils/100 WBC (Bld) 0.4 % 0.0 - 6.0 % [facility] Erythrocyte distribution width (RBC) [Ratio] 15.0 % 11.5 - 15.0 % [facility] Hematocrit (Bld) [Volume fraction] 43.7 % 40.0 - 52.0 % [facility] Hemoglobin (Bld) [Mass/Vol] 14.7 g/dL 13.0 - 18.0 g/dL [facility] Immature granulocytes (Bld) [#/Vol] 0.0 10*3/uL NINF - 0.1 10*3/uL [facility] Immature granulocytes/100 WBC (Bld) 0.2 % 0.0 - 2.0 % [facility] Interpretation and review of laboratory results Abnormal [facility] Lymphocytes (Bld) [#/Vol] 5.0 10*3/uL High 1.0 - 4.3 10*3/uL [facility] Lymphocytes/100 WBC (Bld) 56.2 % High 15.0 - 45.0 % [facility] MCH (RBC) [Entitic mass] 29.4 pg 26.0 - 34.0 pg [facility] MCHC (RBC) [Mass/Vol] 33.6 % 30.5 - 36.0 % [facility] MCV (RBC) [Entitic vol] 87.4 fL 77.0 - 99.0 fL [facility] Monocytes (Bld) [#/Vol] 0.5 10*3/uL 0.0 - 0.9 10*3/uL [facility] Monocytes/100 WBC (Bld) 5.7 % 5.0 - 13.0 % [facility] Neutrophils (Bld) [#/Vol] 3.3 10*3/uL 1.8 - 7.5 10*3/uL [facility] Neutrophils/100 WBC (Bld) 36.9 % Low 38.0 - 82.0 % [facility] Nucleated RBC/100 WBC (Bld) [Ratio] 0.0 % [facility] Platelet mean volume (Bld) [Entitic vol] 9.8 fL 9.0 - 12.7 fL [facility] Platelets (Bld) [#/Vol] 251 10*3/uL 140 - 440 10*3/uL [facility] RBC (Bld) [#/Vol] 5.00 10*6/uL 4.40 - 5.9 0 10*6/uL [facility] WBC (Bld) [#/Vol] 8.9 10*3/uL 3.6 - 10.7 10*3/uL [facility] Comprehensive metabolic 1998 panelon 06-24-2023 Albumin [Mass/Vol] 5.0 g/dL 3.5 - 5.0 g/dL [facility] ALP [Catalytic activity/Vol] 124 U/L 38 - 126 U/L [facility] ALT [Catalytic activity/Vol] 235 U/L High 0 - 49 U/L [facility] Anion gap [Moles/Vol] 19 mmol/L High 3 - 13 mmol/L [facility] AST [Catalytic activity/Vol] 199 U/L High 15 - 46 U/L [facility] Bilirubin [Mass/Vol] 0.6 mg/dL 0.2 - 1 .3 mg/dL [facility] Calcium [Mass/Vol] 9.5 mg/dL 8.4 - 10. 4 mg/dL [facility] Chloride [Moles/Vol] 108 mmol/L High 98 - 10 7 mmol/L [facility] CO2 [Moles/Vol] 16 mmol/L Low 22 - 30 mmol/L [facility] Creatinine [Mass/Vol] 0.73 mg/dL 0.66 - 1.25 mg/dL [facility] GFR/1.73 sq M.predicted MDRD (S/P/Bld) [Vol rate/Area] - PINF [facility] Comment on above: Calculation based on the Chronic Kidney Disease Epidemiology Collaboration (CKD-EPI) equation refit without adjustment for race Glucose [Mass/Vol] 140 mg/dL High 70 - 100 mg/dL [facility] Potassium [Moles/Vol] 4.3 mmol/L 3.5 - 5.1 mmol/L [facility] Protein [Mass/Vol] 8.5 g/dL High 6.3 - 8.2 g/dL [facility] Sodium [Moles/Vol] 144 mmol/L 135 - 145 mmol/L [facility] Urea nitrogen [Mass/Vol] 5 mg/dL Low 9 - 20 mg/dL [facility] Ethanol (Bld) [Mass/Vol]on 0 06-24-2023 Ethanol [Mass/Vol] 0.276 g/dL High 0.000 - 0.010 g/dL [facility] Laboratory - Drug toxicology on 06-24-2023 Acetaminophen [Mass/Vol] ug/mL Low 10.0 - 30.0 ug/mL [facility] Salicylates [Mass/Vol] mg/dL NINF - 20.0 mg/dL [facility] Laboratory - Drug toxicology Ordered By: Deborah Fernandes on 06-24-2023 Amphetamines Screen method >1000 ng/mL Ql (U) Negative [facility] Barbiturates Screen method >200 ng/mL Ql (U) Negative [facility] Benzodiazepines Ql (U) Negative [facility] Methadone Screen Ql (U) Negative [facility] Opiates Screen Ql (U) Negative [facility] oxyCODONE Ql (U) Negative [facility] Phencyclidine Ql (U) Negative [facility] - Microbiology an d Antimicrobial susceptibilityOrdered By: Marilynn Flaherty on 06-24-2023 SARS-CoV-2 (COVID-19) Ag IA.rapid Ql (Resp) Negative Negative [facility] Comment on above: A negative result do es not rule out the possibility of SARS-CoV-2 infection. NAAT-based methods should be considered for symptomatic patients presenting greater than seven days after onset of symptoms. Method: Lateral flow immunoassay. Fact sheets for healthcare providers and patients can be found at the following sites: https://www.fda.gov/media/586522/download https://www.fda.gov/media/873902/download No Panel Informationon 06-23 [facility] Interpretation and review of laboratory results Abnormal [facility] No Panel InformationOrdered By: Deborah Fernandes on 06-24-2023 COCAINE METAB. SCREEN Negative [facility] The expected value f or all of the drugs listed above is Negative. The following drugs or drug groups have been screened for by Immunoassay at the following thresholds: Amphetamine class (1000 ng/mL) Barbiturates (200 ng/mL) Benzodiazepines (200 ng/mL) Cocaine (300 ng/mL) Methadone (300 ng/mL) Opiates (300 ng/mL) Oxycodone (100 ng/mL) PCP (25 ng/mL) NOTE: These results are for medical treatment only. Analysis performed using non-forensic procedures. POSITIVE results are NOT confirmed by a more specific alternative method unless requested. If confirmation is needed, request confirmation under separate order. [facility] SARS-CoV-2 (COVID-19) Ag IA. rapid Ql (Resp)Ordered By: Marilynn Flaherty on 06-24-2023 Interpretation and review of laboratory results Normal [facility] Salicylates [Mass/Vol]on Interpretation and review of laboratory results Normal [facility] Laboratory - Drug toxicology Ordered By: Ana Browne on 03-18-2023 Amphetamines Ql (U) Negative Negative [facility] Benzodiazepines Ql (U) Negative Negative [facility] Cocaine Ql (U) Negative Negative [facility] Ethanol [Mass/Vol] Negative Negative [facility] Methadone Ql (U) Negative Negative [facility] Opiates Ql (U) Negative Negative [facility] No Panel InformationOrdered By: Ana Browne on 03-18-2023 BARBITURATES Negative Negative [facility] BUPRENORPHINE SCREEN Positive Negative [facility] FENTANYL Negative Negative [facility] OXYCODONE/OXYMORPHONE Negative Negative [facility] PCP Negative Negative [facility] THC Positive Negative [facility] The expected value f or the drugs listed above is Negative. The following drugs or drug groups have been screened for by Immunoassay at the following thresholds: Amphetamine class(1000ng/mL) Barbituates(200ng/mL) Benzodiazepines(200ng/m L) Cocaine(300ng/mL) Ethanol (50 ng/mL) Methadone(300ng/mL) Opiates(300ng/mL) Oxycodone(100ng/mL) PCP(25ng/mL) Buprenorphine(5ng/mL) THC(50ng/mL) Fentanyl(1ng/mL) Positive results are NOT confirmed by a more specific alternative method unless requested. If confirmation is needed, request confirmation under separate order. NOTE: These results are for medical treatment only. Analysis performed using non-forensic procedures. [facility] QUANTIFERON - PLUS FRANCO TUBE on 01-08-2023 [facility] QUANTIFERON - PLUS GREEN TUB Adolfo 01-08-2023 [facility] QUANTIFERON - PLUS PURPLE TU BEon 01-08-2023 Interpretation and review of laboratory results Abnormal [facility] M. tuberculosis stim IFN-g by CD4+ CD8+ T-cells corrected for background Qn (Bld) 0.35 IU/mL [facility] M. tuberculosis stim IFN-g by CD4+ T-cells corrected for background Qn (Bld) 0.47 [IU]/mL IU/mL [facility] M. tuberculosis tuberculin stim IFN-g Ql (Bld) Positive Abnormal Negative [facility] Mitogen stimulated gamma interferon corrected for background Qn (Bld) IU/mL [facility] Mitogen stimulated gamma interferon corrected for background Qn (Bld) 0.27 IU/mL [facility] QuantiFERON-TB Gold Plus is a qualitative indirect chemiluminescence immunoassay test for M tuberculosis infection and is intended for use in conjunction with risk assessment, radiography, and other medical and diagnostic evaluations. The QuantiFERON-TB Gold Plus result is determined by subtracting the Nil value from either TB antigen value. The Mitogen tube serves as a control for the test. The TB1-NIL tube specifically detects CD4+ lymphocyte reactivity; the TB2-NIL tube can detect both CD4+ and CD8+ lymphocyte reactivity. An overall Negative result does not completely rule out TB infection. A false-positive result in the absence of other clinical evidence of TB infection is not uncommon and may be due to infection from some nontuberculosis mycobacteria (M. kansasii, M. szulgai, or M. marinum). Clinical research suggests a QuantiFERON-TB Gold Plus interpretation of Positive with TB1 minus Nil and TB2 minus Nil values <1.00 may represent a false-positive result in the absence of other clinical evidence, especially in low-risk individuals. An overall indeterminate result is inconclusive and should not be viewed as low or intermediate infection. Indeterminate results can be caused by low Mitogen or high Nil values. Low mitogen results may occur due to a low lymphocyte count, reduced lymphocyte activity, inability of the patient's lymphocytes to generate IFN-gamma, or inappropriate handling of the tubes. High values for the Nil tube may occur due to heterophile antibody effects or nonspecific, circulating IFN-gamma in the patient's blood sample. When clinically indicated, indeterminate tests should be repeated on a new specimen. [facility] QUANTIFERON - PLUS YELLOW TU BEon 01-08-2023 [facility] CNCOon 01-07-2023 CNCO Letter Text Normal [facility] CNPPatsy 01-07-2023 CNPN Telephone (ARESCL) RORO VALDIVIA ([id number]) 1985 M Date Time Provider Department 01/07/23 CONSTANCE PADILLA During your visit today, we recorded the following information about you: Dimas Ledezma 01/07/2023 2:24 PM Signed No Show Documentation Roro Valdivia no showed for an appointment with Constance Padilla DO. I called the patient regarding his missed appointment. Resources discussed/offered to patient: left voicemail for the patient This is the patients first no show in the last 12 months. Letter mailed : Yes Is this the Third or Fourth No Show? No Dimas Ledezma Allergies As of Date: 01/07/2023 (No Known Allergies) Date Reviewed: 12/24/2022 Reviewed by: Iesha Carias MA - Fully Assessed Reason for Visit: Missed Appointment [1304] Prescriptions as of 01/07/2023 - cloNIDine HCl (CATAPRES) 0.1 mg tablet Take 1 tablet by mouth three times a day. - OLANZapine (ZYPREXA) 5 mg tablet Take 1 tablet by mouth daily at bedtime. - sertraline (ZOLOFT) 25 mg tablet Take 1 tablet by mouth once daily. - traZODone (DESYREL) 50 mg tablet Take 1 tablet by mouth daily at bedtime. - hydrOXYzine pamoate (VISTARIL) 25 mg capsule Take 1 capsule by mouth three times a day as needed for anxiety. - omeprazole (PRILOSEC) 40 mg capsule Take 1 capsule by mouth once daily. - metoprolol succinate ER (TOPROL XL) 25 mg 24 hr tablet TAKE 2 TABLETS BY MOUTH EVERY MORNING AND 1 EVERY EVENING Problem List As Of Date 01/07/2023 Noted Resolved Tourette's [F95.2] 05/31/2018 GERD without esophagitis [K21.9] 05/31/2018 RODRIGUEZ (generalized anxiety disorder) [F41.1] 05/31/2018 Alcohol-induced acute pancreatitis [K85.20] 05/31/2018 Alcohol abuse [F10.10] 05/31/2018 Smoker [F17.200] 05/31/2018 Palpitations [R00.2] 05/31/2018 Essential hypertension [I10] Elevated liver enzymes [R74.8] 02/21/2021 Obesity, Class I, BMI 30-34.9 [E66.9] 12/24/2022 Encounter Status:Closed by DIMAS LEDEZMA on 01/07/23 Normal [facility] Basic metabolic 1998 panelon 12-16-2022 Anion gap [Moles/Vol] 9 mmol/L 3 - 13 mmol/L [facility] Calcium [Mass/Vol] 9.3 mg/dL 8.4 - 10. 4 mg/dL [facility] Chloride [Moles/Vol] 102 mmol/L 98 - 10 7 mmol/L [facility] CO2 [Moles/Vol] 25 mmol/L 22 - 30 mmol/L [facility] Creatinine [Mass/Vol] 0.74 mg/dL 0.66 - 1.25 mg/dL [facility] GFR/1.73 sq M.predicted MDRD (S/P/Bld) [Vol rate/Area] - PINF [facility] Comment on above: Calculation based on the Chronic Kidney Disease Epidemiology Collaboration (CKD-EPI) equation refit without adjustment for race Glucose [Mass/Vol] 96 mg/dL 70 - 100 mg/dL [facility] Interpretation and review of laboratory results Normal [facility] Potassium [Moles/Vol] 4.4 mmol/L 3.5 - 5.1 mmol/L [facility] Sodium [Moles/Vol] 135 mmol/L 135 - 145 mmol/L [facility] Urea nitrogen [Mass/Vol] 11 mg/dL 9 - 20 mg/dL [facility] CBC panel Auto (Bld)Ordered By: Amber Junior on 12-16-2022 Erythrocyte distribution width (RBC) [Ratio] 12.7 % 11.5 - 14.5 % [facility] Hematocrit (Bld) [Volume fraction] 39.0 % Low 40.0 - 52.0 % [facility] Hemoglobin (Bld) [Mass/Vol] 13.0 g/dL 13.0 - 18.0 g/dL [facility] Interpretation and review of laboratory results Abnormal [facility] MCH (RBC) [Entitic mass] 29.7 pg 26.0 - 34.0 pg [facility] MCHC (RBC) [Mass/Vol] 33.4 % 32.0 - 36.0 % [facility] MCV (RBC) [Entitic vol] 89.0 fL 80.0 - 98.0 fL [facility] Platelet mean volume (Bld) [Entitic vol] 7.6 fL 7.4 - 12.4 fL [facility] Platelets (Bld) [#/Vol] 272 10*3/uL 140 - 440 10*3/uL [facility] RBC (Bld) [#/Vol] 4.38 10*6/uL Low 4.40 - 5.9 0 10*6/uL [facility] WBC (Bld) [#/Vol] 6.6 10*3/uL 3.6 - 10.7 10*3/uL [facility] CTA Chest vessels WO and W c ontrast Ellen 12-16-2022 No acute intrathorac ic process, as above. Ultrasound recommended for incidental thyroid nodule on CT or MR: 1. Nodule equal to or greater than 1 cm in patients under 35 years old 2. Nodule equal to or greater than 1.5 cm in patients 35 years or older 3. Nodule with suspicious lymph nodes (enlarged, cystic, calcified, or hyperenhancing) 4. Nodule with local tissue invasion Patients with comorbidities or limited life expectancy do not require further evaluation of the thyroid nodule, unless it is warranted clinically, or specifically requested by the patient or referring physician. Report Dictated on Electronically Signed By: Seema Watson MD Electronically Signed Date/Time: 12/16/2022 11:28 PM EST [facility] Patient Name: RORO CLAIRE : 1985 Exam Date/Time: 12/16/2022 23:01 Procedure: CT CHEST ANGIOGRAM W AND/OR WO IV CONTRAST Ordering Provider: MILIAN QUENTIN Reason For Exam: eval for active tb INDICATION: 37-year-old; evaluate for active tuberculosis; positive TB test; emergency department Scan parameters: Multiple axial 1mm CT images of the chest were acquired with 3mm coronal and sagittal reconstructions. Dose reduction was employed with automated exposure control. Additional reconstructed MIP images provided with 3-D postprocessing. CONTRAST: 75 mL of Isovue-370 IV COMPARISON: Chest portable 12/16/2022 at 14:33 TIME: 12/16/2022 at 22:58 FINDINGS: Lungs: Scattered linear streaky atelectasis present otherwise the lungs are clear. Mediastinum and Gina: There is no mediastinal or hilar adenopathy. Residual thymus present in the anterior mediastinum. Central airway: The airway is patent. Thyroid and Esophagus: The thyroid gland contour is normal. The esophagus is decompressed. Heart and Great Vessels: The heart is not enlarged. There is no pericardial effusion. There is no pulmonary artery embolus. There is no intrathoracic aortic dissection or aneurysm. Osseous structures: The osseous structures are intact. Axilla and Soft tissue: There is no axillary adenopathy. Upper abdomen: The adrenal glands are within normal limits. The spleen is mildly enlarged. There is no hydronephrosis. [facility] EM[facility] Seema Watson MD - 12/16/2022 Patient Name: RORO VALDIVIA : 1985 Exam Date/Time: 12/16/2022 23:01 Procedure: CT CHEST ANGIOGRAM W AND/OR WO IV CONTRAST Ordering Provider: MILIAN QUENTIN Reason For Exam: eval for active tb INDICATION: 37-year-old; evaluate for active tuberculosis; positive TB test; emergency department Scan parameters: Multiple axial 1mm CT images of the chest were acquired with 3mm coronal and sagittal reconstructions. Dose reduction was employed with automated exposure control. Additional reconstructed MIP images provided with 3-D postprocessing. CONTRAST: 75 mL of Isovue-370 IV COMPARISON: Chest portable 12/16/2022 at 14:33 TIME: 12/16/2022 at 22:58 FINDINGS: Lungs: Scattered linear streaky atelectasis present otherwise the lungs are clear. Mediastinum and Gina: There is no mediastinal or hilar adenopathy. Residual thymus present in the anterior mediastinum. Central airway: The airway is patent. Thyroid and Esophagus: The thyroid gland contour is normal. The esophagus is decompressed. Heart and Great Vessels: The heart is not enlarged. There is no pericardial effusion. There is no pulmonary artery embolus. There is no intrathoracic aortic dissection or aneurysm. Osseous structures: The osseous structures are intact. Axilla and Soft tissue: There is no axillary adenopathy. Upper abdomen: The adrenal glands are within normal limits. The spleen is mildly enlarged. There is no hydronephrosis. IMPRESSION: No acute intrathoracic process, as above.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 Platelets (Bld) [#/Vol] 189 10*3/uL 140 - 440 10*3/uL [facility] RBC (Bld) [#/Vol] 4.45 10*6/uL 4.40 - 5.9 0 10*6/uL [facility] WBC (Bld) [#/Vol] 6.0 10*3/uL 3.6 - 10.7 10*3/uL [facility] Comprehensive metabolic 1998 panelon 03-15-2022 Albumin [Mass/Vol] 4.9 g/dL 3.5 - 5.0 g/dL [facility] ALP [Catalytic activity/Vol] 117 U/L 38 - 126 U/L [facility] ALT [Catalytic activity/Vol] 167 U/L High 0 - 49 U/L [facility] Anion gap [Moles/Vol] 11 mmol/L 3 - 13 mmol/L [facility] AST [Catalytic activity/Vol] 234 U/L High 15 - 46 U/L [facility] Bilirubin [Mass/Vol] 0.5 mg/dL 0.2 - 1 .3 mg/dL [facility] Calcium [Mass/Vol] 8.9 mg/dL 8.4 - 10. 4 mg/dL [facility] Chloride [Moles/Vol] 105 mmol/L 98 - 10 7 mmol/L [facility] CO2 [Moles/Vol] 24 mmol/L 22 - 30 mmol/L [facility] Creatinine [Mass/Vol] 0.74 mg/dL 0.66 - 1.25 mg/dL [facility] GFR/1.73 sq M.predicted MDRD (S/P/Bld) [Vol rate/Area] - PINF [facility] Comment on above: Calculation based on the Chronic Kidney Disease Epidemiology Collaboration (CKD-EPI) equation refit without adjustment for race Glucose [Mass/Vol] 112 mg/dL High 70 - 100 mg/dL [facility] Potassium [Moles/Vol] 4.1 mmol/L 3.5 - 5.1 mmol/L [facility] Protein [Mass/Vol] 8.3 g/dL High 6.3 - 8.2 g/dL [facility] Sodium [Moles/Vol] 140 mmol/L 135 - 145 mmol/L [facility] Urea nitrogen [Mass/Vol] 5 mg/dL Low 9 - 20 mg/dL [facility] Ethanol (Bld) [Mass/Vol]on 0 03-15-2022 Ethanol [Mass/Vol] 0.289 g/dL High 0.000 - 0.010 g/dL [facility] Laboratory - Chemistry and C hemistry - challengeon 03-15-2022 Lipase [Catalytic activity/Vol] 324 U/L High 23 - 300 U/L [facility] Laboratory - Drug toxicology Ordered By: Amber Junior on 03-15-2022 Amphetamines Screen method >1000 ng/mL Ql (U) Negative [facility] Barbiturates Screen method >200 ng/mL Ql (U) Negative [facility] Benzodiazepines Ql (U) Negative [facility] Methadone Screen Ql (U) Negative [facility] Opiates Screen Ql (U) Negative [facility] oxyCODONE Ql (U) Negative [facility] Phencyclidine Ql (U) Negative [facility] Laboratory - Microbiology an d Antimicrobial susceptibilityOrdered By: Marilynn Flaherty on 03-15-2022 SARS-CoV-2 (COVID-19) Ag IA.rapid Ql (Resp) Negative Negative [facility] Comment on above: A negative result do es not rule out the possibility of SARS-CoV-2 infection. NAAT-based methods should be considered for symptomatic patients presenting greater than seven days after onset of symptoms. Method: Lateral flow immunoassay. Fact sheets for healthcare providers and patients can be found at the following sites: https://www.fda.gov/media/461962/download https://www.fda.gov/media/245158/download No Panel Informationon 03-15 [address] [place] 41 degrees [facility] ME Interval 176 ms [facility] QRS [place] 5 degrees [facility] QRSD Interval 93 ms [facility] QT Interval 427 ms [facility] QTC Interval 428 ms [facility] T Wave [place] 2 degrees [facility] Sinus rhythm Probable left ventricular hypertrophy Borderline T abnormalities, inferior leads No significant changes compared to previous Electronically Signed On 03-15-2022 22:26:15 EST by Josseline Weber Josseline Davenport MD - 03/15/2022 IMPRESSION: Sinus rhythm Probable left ventricular hypertrophy Borderline T abnormalities, inferior leads No significant changes compared to previous Electronically Signed On 03-15-2022 22:26:15 EST by Josseline Weber [facility] Interpretation and review of laboratory results Abnormal [facility] No Panel InformationOrdered By: Amber Junior on 03-15-2022 COCAINE METAB. SCREEN Positive [facility] The expected value f or all of the drugs listed above is Negative. The following drugs or drug groups have been screened for by Immunoassay at the following thresholds: Amphetamine class (1000 ng/mL) Barbiturates (200 ng/mL) Benzodiazepines (200 ng/mL) Cocaine (300 ng/mL) Methadone (300 ng/mL) Opiates (300 ng/mL) Oxycodone (100 ng/mL) PCP (25 ng/mL) NOTE: These results are for medical treatment only. Analysis performed using non-forensic procedures. POSITIVE results are NOT confirmed by a more specific alternative method unless requested. If confirmation is needed, request confirmation under separate order. [facility] SARS-CoV-2 (COVID-19) Ag IA. rapid Ql (Resp)Ordered By: Marilynn Flaherty on 03-15-2022 Interpretation and review of laboratory results Normal [facility] Vital signson 03-15-2022 Heart rate 60 /min bpm [facility] ED Provider Noteon ED Provider Note JENNI OSORIO ED eMERGENCY dEPARTMENT eNCOUnter Pt Name: Roro Valdivia Birthdate 1985 Date of evaluation: 07/20/2020 Provider: Vamshi Esposito MD CHIEF COMPLAINT Chief Complaint Patient presents with ? Dental Pain pt presenst with right lower dental pain x one week HISTORY OF PRESENT ILLNESS (Location/Symptom, Timing/Onset,Context/Se tting, Quality, Duration, Modifying Factors, Severity) Note limiting factors. HPI Roro Valdivia is a 34 y.o. male who presents to the emergency department complaining of dental pain. States symptoms have been present for about 1 week. Denies any systemic symptoms. States he has dental appointment coming up. Nursing Notes were reviewed. REVIEW OF SYSTEMS (2+ for4; 10+ for level 5) Review of Systems Constitutional: Negative for chills and fever. HENT: Positive for dental problem. Negative for congestion, sinus pain, sore throat and trouble swallowing. Eyes: Negative for photophobia, pain, redness and visual disturbance. Respiratory: Negative for cough, chest tightness, shortness of breath, wheezing and stridor. Cardiovascular: Negative for chest pain, palpitations and leg swelling. Gastrointestinal: Negative for abdominal distention, abdominal pain, diarrhea, nausea and vomiting. Genitourinary: Negative for decreased urine volume, difficulty urinating, dysuria, flank pain, frequency and urgency. Musculoskeletal: Negative for back pain and neck pain. Skin: Negative for pallor, rash and wound. Neurological: Negative for seizures, syncope, speech difficulty, weakness, light-headedness, numbness and headaches. Psychiatric/Behavioral: Negative for confusion, hallucinations and self-injury. PAST MEDICAL HISTORY Past Medical History: Diagnosis Date ? CAD (coronary artery disease) ? GERD (gastroesophageal reflux disease) ? Hypertension ? Pancreatitis ? SVT (supraventricular tachycardia) ([facility]) ? Tourette syndrome SURGICALHISTORY Past Surgical History: Procedure Laterality Date ? APPENDECTOMY CURRENT MEDICATIONS Previous Medications METOPROLOL TARTRATE PO Take 50 mg by mouth daily OMEPRAZOLE (PRILOSEC) 20 MG DELAYED RELEASE CAPSULE Take 20 mg by mouth daily PAROXETINE (PAXIL) 20 MG TABLET Take 1 tablet by mouth nightly PHENAZOPYRIDINE (PYRIDIUM) 200 MG TABLET Take 1 tablet by mouth 3 times daily as needed for Pain (dysuria) RISPERIDONE (RISPERDAL) 0.5 MG TABLET Take 1 tablet by mouth 2 times daily Patient has no known allergies. FAMILY HISTORY Family History Problem Relation Age of Onset ? No Known Problems Mother ? No Known Problems Father SOCIAL HISTORY Social History Socioeconomic History ? Marital status: Single Spouse name: None ? Number of children: None ? Years of education: None ? Highest education level: None Occupational History ? None Tobacco Use ? Smoking status: Current Every Day Smoker Packs/day: 0.25 Years: 15.00 Pack years: 3.75 Types: Cigarettes ? Smokeless tobacco: Never Used Vaping Use ? Vaping Use: Never used Substance and Sexual Activity ? Alcohol use: Yes Alcohol/week: 12.0 standard drinks Types: 12 Cans of beer per week Comment: 5th of liquor ? Drug use: No ? Sexual activity: None Other Topics Concern ? None Social History Narrative ? None Social Determinants of Health Financial Resource Strain: ? Difficulty of Paying Living Expenses: Food Insecurity: ? Worried About Running Out of Food in the Last Year: ? Ran Out of Food in the Last Year: Transportation Needs: ? Lack of Transportation (Medical): ? Lack of Transportation (Non-Medical): Physical Activity: ? Days of Exercise per Week: ? Minutes of Exercise per Session: Stress: ? Feeling of Stress : Social Connections: ? Frequency of Communication with Friends and Family: ? Frequency of Social Gatherings with Friends and Family: ? Attends [employer] Services: ? Active Member of Clubs or Organizations: ? Attends Club or Organization Meetings: ? Marital Status: Intimate Partner Violence: ? Fear of Current or Ex-Partner: ? Emotionally Abused: ? Physically Abused: ? Sexually Abused: SCREENINGS @FLOW([id number])@ PHYSICAL EXAM (5+ for level 4, 8+ for level 5) ED Triage Vitals [07/20/20 0359] BP Temp Temp Source Pulse Resp SpO2 Height Weight (!) 143/87 97.6 ?F (36.4 ?C) Temporal 58 16 98 % -- -- Physical Exam Vitals and nursing note reviewed. Constitutional: General: He is not in acute distress. Appearance: Normal appearance. He is not toxic-appearing or diaphoretic. HENT: Head: Normocephalic and atraumatic. Nose: No congestion or rhinorrhea. Mouth/Throat: Mouth: Mucous membranes are moist. Eyes: Extraocular Movements: Extraocular movements intact. Pupils: Pupils are equal, round, and reactive to light. Cardiovascular: Rate and Rhythm: Normal rate and regular rhythm. Pulses: Normal pulses. Heart sounds: Normal heart sounds. (more content not included)... Normal [facility] XR CHEST 2V FRONTAL/LATon XR CHEST 2V FRONTAL/LAT Final Report DATE OF EXAM: Jan 28 2020 8:16AM [id number] - XR CHEST 2V FRONTAL/LAT / PROCEDURE REASON: Chest pain Physician Interpretation EXAMINATION: CHEST RADIOGRAPH (2 VIEW FRONTAL & LATERAL) CLINICAL HISTORY: Chest pain, Tachycardia MQ: [id number] EXAM DATE/TIME: 01/28/2020 8:16 AM COMPARISON: Chest x-ray dated 11/02/2019 RESULT: Lines, tubes, and devices: None. Lungs and pleura: No consolidation. No lung mass. No pleural effusion. No pneumothorax. Cardiomediastinal silhouette: Normal cardiomediastinal silhouette. Bones and soft tissues: No acute abnormality IMPRESSION: No acute radiographic abnormality. Home Care Consultant: MORA Transcribe Date/Time: Jan 28 2020 8:55A Dictated by : SHIMA RAMOS MD This examination was interpreted and the report reviewed and electronically signed by: SHIMA RAMOS MD on Jan 28 2020 8:56AM EST Normal [facility] Chlamydia and GC PCR Panelon 07-29-2019 Chlamydia and GC PCR Panel Chlamydia trachomatis PCR --> Status: F NOT Detected Chlamydia trachomatis Nucleic Acid NOT Detected by DNA Amplification using the Cepheid System. Culture is the only recommended test in medical-legal cases such as suspected child abuse or molestation. Chlamydia trachomatis Nucleic Acid NOT Detected by DNA Amplification using the Cepheid System. Culture is the only recommended test in medical-legal cases such as suspected child abuse or molestation. Neisseria gonorrhoeae PCR --> Status: F NOT Detected Neisseria gonorrhoeae Nucleic Acid NOT Detected by DNA Amplification using the Cepheid System. Culture is the only recommended test in medical-legal cases such as suspected child abuse or molestation. Neisseria gonorrhoeae Nucleic Acid NOT Detected by DNA Amplification using the Cepheid System. Culture is the only recommended test in medical-legal cases such as suspected child abuse or molestation. Normal [facility] Comment on above: Order Comment: Speci men Source Comment:Urine voided Performed By: #### C TNGP #### [address] [id number] Complete Urinalysison 2019 Appearance (U) Clear Normal Clear [facility] Comment on above: Result Comment: . Performed By: #### C UA2 #### [facility] [address] [place] [address] Bilirubin,Urine Negative Normal Negative [facility] Comment on above: Result Comment: . Performed By: #### C UA2 #### [facility] [address] [place] [address] Color (U) Yellow Normal Lt. Yellow [facility] Comment on above: Result Comment: . Performed By: #### C UA2 #### [facility] [address] [place] [address] Glucose Ql (U) Normal Normal Normal (<70) [facility] Comment on above: Result Comment: . Performed By: #### C UA2 #### [facility] [address] [place] [address] Ketone,Urine Trace Abnormal Negative [facility] Comment on above: Result Comment: . Performed By: #### C UA2 #### [facility] [address] [place] [address] Leukocytes,Urine Negative Normal Negative [facility] Comment on above: Result Comment: . Performed By: #### C UA2 #### [facility] [address] [place] [address] Mucous Threads Moderate Abnormal Negative [facility] Comment on above: Result Comment: . Performed By: #### C UA2 #### [facility] [address] [place] [address] Nitrites,Urine Negative Normal Negative [facility] Comment on above: Result Comment: . Performed By: #### C UA2 #### [facility] [address] [place] [address] Occult Blood,Urine Negative Normal Negative [facility] Comment on above: Result Comment: . Performed By: #### C UA2 #### [facility] [address] [place] [address] pH,Urine 6.0 Normal 5.0-8.0 [facility] Comment on above: Result Comment: . Performed By: #### C UA2 #### [facility] [address] [place] [address] Protein (U) [Mass/Vol] 10 mg/dL Abnormal Negative [facility] Comment on above: Result Comment: . Performed By: #### C UA2 #### [facility] [address] [place] [address] RBC, Urine 3 - 5 Abnormal 0-2 [facility] Comment on above: Result Comment: . Performed By: #### C UA2 #### [facility] [address] [place] [address] Specific [place],Urine 1.030 Normal 1.005 - 1.030 [facility] Comment on above: Result Comment: . Performed By: #### C UA2 #### [facility] [address] [place] [address] Urobilinogen,Urine 3 mg/dL Abnormal Normal (0-1) [facility] Comment on above: Result Comment: . Performed By: #### C UA2 #### [facility] [address] [place] [address] WBC, Urine 3 - 5 Normal 0-5 [facility] Comment on above: Result Comment: . Performed By: #### C UA2 #### [facility] [address] [place] [address] Urinalysison 07-28-2019 Appearance (U) Clear Clear [place], [place] Comment on above: . Bilirubin Urine Negative Negative mg/dL [place], [place] Comment on above: . Color (U) Yellow Lt. Yellow NA [place], [place] Comment on above: . Glucose, Ur Normal Normal (<70) mg/dL [place] Comment on above: . Interpretation and review of laboratory results Abnormal [place] Ketones Ql (U) Trace Abnormal Negative mg/dL [place] Comment on above: . LEUKOCYTES, UA Negative Negative Te[place]ilo/uL [place] Comment on above: . Mucous Threads Moderate Abnormal Negative /[LPF] [place] Comment on above: . Nitrite, Urine Negative Negative [place] Comment on above: . Occult Blood,Urine Negative Negative mg/dL [place] Comment on above: . pH (U) 6.0 [pH] [place] Comment on above: . Protein (U) [Mass/Vol] 10 mg/dL Abnormal Negative [place] Comment on above: . RBC (U) [#/Vol] 3-5 Abnormal 0 - 2 /[HPF] [place] Comment on above: . Specific [place], Urine 1.030 [place] Comment on above: . Urobilinogen, Urine 3 mg/dL Abnormal Normal (0-1) [place], [place] Comment on above: . WBC, UA 3-5 0 - 5 /[HPF] [place] Comment on above: . Test Performed by [facility], [address] [place], [place], [place] [address] [place], [place] Lipaseon 06-08-2018 Lipase [Catalytic activity/Vol] 65 U/L High 13-60 [facility] CBC With Platelet No Differe ntialon 06-07-2018 Erythrocyte distribution width (RBC) [Ratio] 13.0 fL Normal 11.5-15.0 [facility] Hematocrit (Bld) [Volume fraction] 39.4 % Normal 37.0-54.0 [facility] Hemoglobin (Bld) [Mass/Vol] 12.5 g/dL Normal 12.5-16.5 [facility] MCH (RBC) [Entitic mass] 29.6 pg Normal 26.0-35.0 [facility] MCHC (RBC) [Mass/Vol] 31.7 % Low 32.0-34.5 [facility] MCV (RBC) [Entitic vol] 93.4 fL Normal 80.0-99.9 [facility] Platelet mean volume (Bld) [Entitic vol] 9.8 fL Normal 7.0-12.0 [facility] Platelets (Bld) [#/Vol] 207 E9/L Normal 130-450 [facility] RBC (Bld) [#/Vol] 4.22 E12/L Normal 3.80-5.80 [facility] WBC (Bld) [#/Vol] 5.8 E9/L Normal 4.5-11.5 [facility] Comprehensive Metabolic Pane l reflex Mgon 06-07-2018 Albumin [Mass/Vol] 3.8 g/dL Normal 3.5-5.2 [facility] ALP [Catalytic activity/Vol] 65 U/L Normal 40-129 [facility] ALT [Catalytic activity/Vol] 63 U/L High 0-40 [facility] Anion gap [Moles/Vol] 11 mmol/L Normal 7-16 [facility] AST [Catalytic activity/Vol] 46 U/L High 0-39 [facility] Bilirubin [Mass/Vol] 0.5 mg/dL Normal 0.0-1.2 [facility] Calcium [Mass/Vol] 8.8 mg/dL Normal 8.6-10.2 [facility] Chloride [Moles/Vol] 103 mmol/L Normal 98-107 [facility] CO2 [Moles/Vol] 26 mmol/L Normal 22-29 [facility] Creatinine [Mass/Vol] 0.9 mg/dL Normal 0.7-1.2 [facility] GFR/1.73 sq M predicted among blacks MDRD (S/P/Bld) [Vol rate/Area] mL/min/{1.73_m2} Normal [facility] GFR/1.73 sq M predicted among non-blacks MDRD (S/P/Bld) [Vol rate/Area] mL/min/{1.73_m2} Normal >=60 [facility] Comment on above: Result Comment: [employer] russ Kidney Disease: less than 60 ml/min/1.73 sq.m. Kidney Failure: less than 15 ml/min/1.73 sq.m. Results valid for patients 18 years and older. Glucose [Mass/Vol] 100 mg/dL High 74-99 [facility] Potassium reflex Mg 4.3 mmol/L Normal 3.5-5.0 [facility] Protein [Mass/Vol] 6.3 g/dL Low 6.4-8.3 [facility] Sodium [Moles/Vol] 140 mmol/L Normal 132-146 [facility] Urea nitrogen [Mass/Vol] 10 mg/dL Normal 6-20 [facility] Lipaseon 06-07-2018 Lipase [Catalytic activity/Vol] 158 U/L High 13-60 [facility] Lipid Panelon 04-29-2019 Cholesterol [Mass/Vol] 214 mg/dL High 0-199 [facility] Cholesterol in HDL [Mass/Vol] 37 mg/dL Normal >40 [facility] Cholesterol in LDL [Mass/Vol] 128 mg/dL High 0-99 [facility] Triglyceride [Mass/Vol] 246 mg/dL High 0-149 [facility] VLDL Cholesterol (Calculated) 49 mg/dL Normal [facility] CBC With Platelet and Differ entialon 06-06-2018 Abs Imm Granulocytes 0.03 E9/L Normal [facility] Basophils (Bld) [#/Vol] 0.05 E9/L Normal 0.00-0.20 [facility] Basophils/100 WBC (Bld) 0.7 % Normal 0.0-2.0 [facility] Eosinophils (Bld) [#/Vol] 0.18 E9/L Normal 0.05-0.50 [facility] Eosinophils/100 WBC (Bld) 2.3 % Normal 0.0-6.0 [facility] Erythrocyte distribution width (RBC) [Ratio] 13.1 fL Normal 11.5-15.0 [facility] Hematocrit (Bld) [Volume fraction] 43.6 % Normal 37.0-54.0 [facility] Hemoglobin (Bld) [Mass/Vol] 14.2 g/dL Normal 12.5-16.5 [facility] Imm Granulocytes 0.4 % Normal 0.0-5.0 [facility] Lymphocytes (Bld) [#/Vol] 2.17 E9/L Normal 1.50-4.00 [facility] Lymphocytes/100 WBC (Bld) 28.3 % Normal 20.0-42.0 [facility] MCH (RBC) [Entitic mass] 30.1 pg Normal 26.0-35.0 [facility] MCHC (RBC) [Mass/Vol] 32.6 % Normal 32.0-34.5 [facility] MCV (RBC) [Entitic vol] 92.4 fL Normal 80.0-99.9 [facility] Monocytes (Bld) [#/Vol] 0.49 E9/L Normal 0.10-0.95 [facility] Monocytes/100 WBC (Bld) 6.4 % Normal 2.0-12.0 [facility] Neutrophils (Bld) [#/Vol] 4.75 E9/L Normal 1.80-7.30 [facility] Neutrophils/100 WBC (Bld) 61.9 % Normal 43.0-80.0 [facility] Platelet mean volume (Bld) [Entitic vol] 10.4 fL Normal 7.0-12.0 [facility] Platelets (Bld) [#/Vol] 245 E9/L Normal 130-450 [facility] RBC (Bld) [#/Vol] 4.72 E12/L Normal 3.80-5.80 [facility] WBC (Bld) [#/Vol] 7.7 E9/L Normal 4.5-11.[address] [facility] [address] ABDOMEN PELVIS W IV CONTR Sandor 06-06-2018 CT ABDOMEN PELVIS W IV CONTRAST LOCATION:200 EXAM: CT ABDOMEN PELVIS W IV CONTRAST COMPARISON: None HISTORY: Epigastric pain TECHNIQUE:Contrast-enha nced helical abdomen and pelvis CT was performed. Coronal and sagittal reconstructions also obtained. Automated dose control was used for this exam. CONTRAST: 80 mL Isovue-370 intravenous contrast was administered. FINDINGS: SUPPORT DEVICES: None LOWER THORAX: Limited evaluation of the lower chest demonstrates clear lung bases bilaterally. SOLID ORGANS: Peripancreatic fat stranding noted without fluid collection or nonenhancement. Spleen, liver and adrenal glands are within normal. BILIARY SYSTEM: No evidence of biliary ductal dilatation. GENITOURINARY: The kidneys are normal in appearance bilaterally with no evidence of hydronephrosis. No stones are appreciated. The bladder is unremarkable. Pelvic structures are normal. GASTROINTESTINAL: The stomach, small and large bowel are normal in caliber without evidence of focal wall thickening. There is no evidence of bowel obstruction. APPENDIX: Not visualized surgically absent. FLUID COLLECTIONS: None. LYMPH NODES: No adenopathy by size criteria. VASCULAR STRUCTURES: Visualized vascular structures appear normal. ABDOMINAL WALL: Normal with no herniations. OSSEOUS AND SOFT TISSUE STRUCTURES: Bone windows demonstrate no suspicious osteolytic or osteoblastic lesions. No fracture identified. IMPRESSION: 1. Findings compatible with pancreatitis. No bile duct dilation to suggest a stone. Interpreted by: Nevaeh Edgar DO Signed by: Nevaeh Edgar DO 06/06/18 Final result Normal [facility] Comprehensive Metabolic Pane rylan 06-06-2018 Albumin [Mass/Vol] 4.5 g/dL Normal 3.5-5.2 [facility] ALP [Catalytic activity/Vol] 79 U/L Normal 40-129 [facility] ALT [Catalytic activity/Vol] 81 U/L High 0-40 [facility] Anion gap [Moles/Vol] 10 mmol/L Normal 7-16 [facility] AST [Catalytic activity/Vol] 49 U/L High 0-39 [facility] Bilirubin [Mass/Vol] 0.4 mg/dL Normal 0.0-1.2 [facility] Calcium [Mass/Vol] 9.6 mg/dL Normal 8.6-10.2 [facility] Chloride [Moles/Vol] 100 mmol/L Normal 98-107 [facility] CO2 [Moles/Vol] 28 mmol/L Normal 22-29 [facility] Creatinine [Mass/Vol] 0.8 mg/dL Normal 0.7-1.2 [facility] GFR/1.73 sq M predicted among blacks MDRD (S/P/Bld) [Vol rate/Area] mL/min/{1.73_m2} Normal [facility] GFR/1.73 sq M predicted among non-blacks MDRD (S/P/Bld) [Vol rate/Area] mL/min/{1.73_m2} Normal >=60 [facility] Comment on above: Result Comment: [employer] russ Kidney Disease: less than 60 ml/min/1.73 sq.m. Kidney Failure: less than 15 ml/min/1.73 sq.m. Results valid for patients 18 years and older. Glucose [Mass/Vol] 117 mg/dL High 74-99 [facility] Potassium [Moles/Vol] 4.3 mmol/L Normal 3.5-5.0 [facility] Protein [Mass/Vol] 7.2 g/dL Normal 6.4-8.3 [facility] Sodium [Moles/Vol] 138 mmol/L Normal 132-146 [facility] Urea nitrogen [Mass/Vol] 9 mg/dL Normal 6-20 [facility] Lactate Dehydrogenaseon 05-11 LDH [Catalytic activity/Vol] 193 U/L Normal 135-225 [facility] Comment on above: Order Comment: EPIC [id number] Lactic Acidon 06-06-2018 Lactate [Moles/Vol] 1.4 mmol/L Normal 0.5-2.2 [facility] Lipaseon 06-06-2018 Lipase [Catalytic activity/Vol] 450 U/L High 13-60 [facility] Prothrombin Timeon 9 INR Coag (PPP) [Relative time] 1.0 {INR} Normal [facility] PT Coag (PPP) [Time] 11.3 s Normal 9.3-12.4 [facility] CBC With Platelet and Differ entialon 03-30-2018 Abs Imm Granulocytes 0.02 E9/L Normal [facility] Basophils (Bld) [#/Vol] 0.03 E9/L Normal 0.00-0.20 [facility] Basophils/100 WBC (Bld) 0.6 % Normal 0.0-2.0 [facility] Eosinophils (Bld) [#/Vol] 0.08 E9/L Normal 0.05-0.50 [facility] Eosinophils/100 WBC (Bld) 1.6 % Normal 0.0-6.0 [facility] Erythrocyte distribution width (RBC) [Ratio] 12.2 fL Normal 11.5-15.0 [facility] Hematocrit (Bld) [Volume fraction] 40.3 % Normal 37.0-54.0 [facility] Hemoglobin (Bld) [Mass/Vol] 12.8 g/dL Normal 12.5-16.5 [facility] Imm Granulocytes 0.4 % Normal 0.0-5.0 [facility] Lymphocytes (Bld) [#/Vol] 1.94 E9/L Normal 1.50-4.00 [facility] Lymphocytes/100 WBC (Bld) 39.2 % Normal 20.0-42.0 [facility] MCH (RBC) [Entitic mass] 29.8 pg Normal 26.0-35.0 [facility] MCHC (RBC) [Mass/Vol] 31.8 % Low 32.0-34.5 [facility] MCV (RBC) [Entitic vol] 93.9 fL Normal 80.0-99.9 [facility] Monocytes (Bld) [#/Vol] 0.37 E9/L Normal 0.10-0.95 [facility] Monocytes/100 WBC (Bld) 7.5 % Normal 2.0-12.0 [facility] Neutrophils (Bld) [#/Vol] 2.51 E9/L Normal 1.80-7.30 [facility] Neutrophils/100 WBC (Bld) 50.7 % Normal 43.0-80.0 [facility] Platelet mean volume (Bld) [Entitic vol] 10.4 fL Normal 7.0-12.0 [facility] Platelets (Bld) [#/Vol] 208 E9/L Normal 130-450 [facility] RBC (Bld) [#/Vol] 4.29 E12/L Normal 3.80-5.80 [facility] WBC (Bld) [#/Vol] 5.0 E9/L Normal 4.5-11.5 [facility] Comprehensive Metabolic Pane rylan 03-30-2018 Albumin [Mass/Vol] 3.9 g/dL Normal 3.5-5.2 [facility] ALP [Catalytic activity/Vol] 65 U/L Normal 40-129 [facility] ALT [Catalytic activity/Vol] 66 U/L High 0-40 [facility] Anion gap [Moles/Vol] 7 mmol/L Normal 7-16 [facility] AST [Catalytic activity/Vol] 49 U/L High 0-39 [facility] Bilirubin [Mass/Vol] 0.4 mg/dL Normal 0.0-1.2 [facility] Calcium [Mass/Vol] 9.0 mg/dL Normal 8.6-10.2 [facility] Chloride [Moles/Vol] 106 mmol/L Normal 98-107 [facility] CO2 [Moles/Vol] 26 mmol/L Normal 22-29 [facility] Creatinine [Mass/Vol] 0.9 mg/dL Normal 0.7-1.2 [facility] GFR/1.73 sq M predicted among blacks MDRD (S/P/Bld) [Vol rate/Area] mL/min/{1.73_m2} Normal [facility] GFR/1.73 sq M predicted among non-blacks MDRD (S/P/Bld) [Vol rate/Area] mL/min/{1.73_m2} Normal >=60 [facility] Comment on above: Result Comment: [employer] russ Kidney Disease: less than 60 ml/min/1.73 sq.m. Kidney Failure: less than 15 ml/min/1.73 sq.m. Results valid for patients 18 years and older. Glucose [Mass/Vol] 92 mg/dL Normal 74-99 [facility] Potassium [Moles/Vol] 4.4 mmol/L Normal 3.5-5.0 [facility] Protein [Mass/Vol] 6.3 g/dL Low 6.4-8.3 [facility] Sodium [Moles/Vol] 139 mmol/L Normal 132-146 [facility] Urea nitrogen [Mass/Vol] 6 mg/dL Normal 6-20 [facility] CBC With Platelet and Differ entialon 03-29-2018 Abs Imm Granulocytes 0.03 E9/L Normal [facility] Basophils (Bld) [#/Vol] 0.03 E9/L Normal 0.00-0.20 [facility] Basophils/100 WBC (Bld) 0.3 % Normal 0.0-2.0 [facility] Eosinophils (Bld) [#/Vol] 0.08 E9/L Normal 0.05-0.50 [facility] Eosinophils/100 WBC (Bld) 0.9 % Normal 0.0-6.0 [facility] Erythrocyte distribution width (RBC) [Ratio] 12.2 fL Normal 11.5-15.0 [facility] Hematocrit (Bld) [Volume fraction] 43.9 % Normal 37.0-54.0 [facility] Hemoglobin (Bld) [Mass/Vol] 14.7 g/dL Normal 12.5-16.5 [facility] Imm Granulocytes 0.3 % Normal 0.0-5.0 [facility] Lymphocytes (Bld) [#/Vol] 2.67 E9/L Normal 1.50-4.00 [facility] Lymphocytes/100 WBC (Bld) 30.2 % Normal 20.0-42.0 [facility] MCH (RBC) [Entitic mass] 30.8 pg Normal 26.0-35.0 [facility] MCHC (RBC) [Mass/Vol] 33.5 % Normal 32.0-34.5 [facility] MCV (RBC) [Entitic vol] 91.8 fL Normal 80.0-99.9 [facility] Monocytes (Bld) [#/Vol] 0.57 E9/L Normal 0.10-0.95 [facility] Monocytes/100 WBC (Bld) 6.4 % Normal 2.0-12.0 [facility] Neutrophils (Bld) [#/Vol] 5.46 E9/L Normal 1.80-7.30 [facility] Neutrophils/100 WBC (Bld) 61.9 % Normal 43.0-80.0 [facility] Platelet mean volume (Bld) [Entitic vol] 10.8 fL Normal 7.0-12.0 [facility] Platelets (Bld) [#/Vol] 263 E9/L Normal 130-450 [facility] RBC (Bld) [#/Vol] 4.78 E12/L Normal 3.80-5.80 [facility] WBC (Bld) [#/Vol] 8.8 E9/L Normal 4.5-11.[address] [facility] [address] ABDOMEN PELVIS W IV CONTR Sandor 03-29-2018 CT ABDOMEN PELVIS W IV CONTRAST Reading location: 200 HISTORY: Elevated lipase, left upper quadrant pain. TECHNIQUE: Serial axial images of the abdomen and pelvis were obtained following the uneventful administration of 80 cc of Isovue-370 intravenous contrast. Reformatted sagittal and coronal images were obtained. One or more of the following dose reduction techniques were used: Automated dose exposure. Adjustment of the mA and/or kV according to patient size Use of iterative reconstruction techniques FINDINGS: The lung bases are clear. There is fatty infiltration of the liver. No hepatic mass is noted. The spleen is unremarkable. Adjacent to the pancreatic head and duodenal sweep, mild mesenteric induration is noted. These findings can represent pancreatitis or duodenitis. There is no pseudocyst or pancreatic mass. The pancreatic duct is not dilated. The adrenal glands and kidneys are unremarkable. The gallbladder and stomach are normally distended. There is no large or small bowel obstruction. No intra-abdominal abscess or free air is noted. The abdominal aorta is normal in caliber. IMPRESSION: 1. Mild mesenteric induration seen adjacent to the pancreatic head and duodenal sweep. The findings can represent low-grade pancreatitis causing irritation of the duodenum or possibly, but less likely, duodenitis. 2. Hepatic steatosis. Interpreted by: Constance Baptiste MD Signed by: Constance Baptiste MD 03/29/18 Final result Normal [facility] Comprehensive Metabolic Pane rylan 03-29-2018 Albumin [Mass/Vol] 5.0 g/dL Normal 3.5-5.2 [facility] ALP [Catalytic activity/Vol] 78 U/L Normal 40-129 [facility] ALT [Catalytic activity/Vol] 79 U/L High 0-40 [facility] Anion gap [Moles/Vol] 12 mmol/L Normal 7-16 [facility] AST [Catalytic activity/Vol] 64 U/L High 0-39 [facility] Bilirubin [Mass/Vol] 0.5 mg/dL Normal 0.0-1.2 [facility] Calcium [Mass/Vol] 9.6 mg/dL Normal 8.6-10.2 [facility] Chloride [Moles/Vol] 101 mmol/L Normal 98-107 [facility] CO2 [Moles/Vol] 25 mmol/L Normal 22-29 [facility] Creatinine [Mass/Vol] 0.9 mg/dL Normal 0.7-1.2 [facility] GFR/1.73 sq M predicted among blacks MDRD (S/P/Bld) [Vol rate/Area] mL/min/{1.73_m2} Normal [facility] GFR/1.73 sq M predicted among non-blacks MDRD (S/P/Bld) [Vol rate/Area] mL/min/{1.73_m2} Normal >=60 [facility] Comment on above: Result Comment: [employer] russ Kidney Disease: less than 60 ml/min/1.73 sq.m. Kidney Failure: less than 15 ml/min/1.73 sq.m. Results valid for patients 18 years and older. Glucose [Mass/Vol] 96 mg/dL Normal 74-99 [facility] Potassium [Moles/Vol] 4.2 mmol/L Normal 3.5-5.0 [facility] Protein [Mass/Vol] 7.6 g/dL Normal 6.4-8.3 [facility] Sodium [Moles/Vol] 138 mmol/L Normal 132-146 [facility] Urea nitrogen [Mass/Vol] 9 mg/dL Normal 6-20 [facility] Lactic Acidon 03-29-2018 Lactate [Moles/Vol] 0.7 mmol/L Normal 0.5-2.2 [facility] Lipaseon 03-29-2018 Lipase [Catalytic activity/Vol] 88 U/L High 13-60 [facility] Lipid Panelon 03-29-2018 Cholesterol [Mass/Vol] 255 mg/dL High 0-199 [facility] Cholesterol in HDL [Mass/Vol] 53 mg/dL Normal >40 [facility] Cholesterol in LDL [Mass/Vol] 164 mg/dL High 0-99 [facility] Triglyceride [Mass/Vol] 188 mg/dL High 0-149 [facility] VLDL Cholesterol (Calculated) 38 mg/dL Normal [facility] Magnesiumon 03-29-2018 Magnesium [Mass/Vol] 2.3 mg/dL Normal 1.6-2.6 [facility] POCT Venouson 03-29-2018 Anion gap [Moles/Vol] 11 mmol/L Normal 7-16 [facility] Creatinine [Mass/Vol] 0.9 mg/dL Normal 0.7-1.2 [facility] GFR/1.73 sq M predicted among blacks MDRD (S/P/Bld) [Vol rate/Area] mL/min/{1.73_m2} Normal [facility] GFR/1.73 sq M.predicted MDRD (S/P/Bld) [Vol rate/Area] mL/min/{1.73_m2} Normal >=60 [facility] Comment on above: Result Comment: [employer] russ Kidney Disease: less than 60 ml/min/1.73 sq.m. Kidney Failure: less than 15 ml/min/1.73 sq.m. Results valid for patients 18 years and older. Glucose [Mass/Vol] 97 mg/dL Normal 74-99 [facility] POC Cl 104 mmol/L Normal 100-108 [facility] POC CO2 23 mmol/L Normal 22-29 [facility] POC K 4.0 mmol/L Normal 3.5-5.0 [facility] POC Na 138 mmol/L Normal 132-146 [facility] Comment on above: Result Comment: ALL POC CRITICAL VALUES MUST BE COMMUNICATED BY TESTING PERSONNEL PER DEPARTMENT POLICY. Urea nitrogen [Mass/Vol] 9 mg/dL Normal 8-23 [facility] Phosphoruson 03-29-2018 Phosphate [Mass/Vol] 4.1 mg/dL Normal 2.5-4.5 [facility] US ABDOMEN LIMITEDon 019 US ABDOMEN LIMITED Location:200 Exam: US ABDOMEN LIMITED Comparison: None History: Elevated LFTs Technique: Real-time, franco scale, color flow images of the right upper quadrant was obtained. Findings: The liver is increased in echogenicity. No intrahepatic biliary ductal dilation seen. The majority of the pancreas is obscured by bowel gas. The visualized portions of the pancreas are unremarkable. Echogenic sludge is noted. No focal wall thickening seen. Sonographic Li sign was negative. The common bile duct measures 4.0 mm in greatest dimension. Screening examination of the right kidney is within normal limits. IMPRESSION: 1. Hepatic steatosis. 2. Gallbladder sludge. Interpreted by: Nevaeh Edgar DO Signed by: Nevaeh Edgar DO 03/29/18 Final result Normal [facility] CBC With Platelet and Differ entialon 03-28-2018 Abs Imm Granulocytes 0.03 E9/L Normal [facility] Basophils (Bld) [#/Vol] 0.03 E9/L Normal 0.00-0.20 [facility] Basophils/100 WBC (Bld) 0.4 % Normal 0.0-2.0 [facility] Eosinophils (Bld) [#/Vol] 0.08 E9/L Normal 0.05-0.50 [facility] Eosinophils/100 WBC (Bld) 0.9 % Normal 0.0-6.0 [facility] Erythrocyte distribution width (RBC) [Ratio] 12.3 fL Normal 11.5-15.0 [facility] Hematocrit (Bld) [Volume fraction] 46.5 % Normal 37.0-54.0 [facility] Hemoglobin (Bld) [Mass/Vol] 15.2 g/dL Normal 12.5-16.5 [facility] Imm Granulocytes 0.4 % Normal 0.0-5.0 [facility] Lymphocytes (Bld) [#/Vol] 2.85 E9/L Normal 1.50-4.00 [facility] Lymphocytes/100 WBC (Bld) 33.3 % Normal 20.0-42.0 [facility] MCH (RBC) [Entitic mass] 29.7 pg Normal 26.0-35.0 [facility] MCHC (RBC) [Mass/Vol] 32.7 % Normal 32.0-34.5 [facility] MCV (RBC) [Entitic vol] 90.8 fL Normal 80.0-99.9 [facility] Monocytes (Bld) [#/Vol] 0.57 E9/L Normal 0.10-0.95 [facility] Monocytes/100 WBC (Bld) 6.7 % Normal 2.0-12.0 [facility] Neutrophils (Bld) [#/Vol] 4.99 E9/L Normal 1.80-7.30 [facility] Neutrophils/100 WBC (Bld) 58.3 % Normal 43.0-80.0 [facility] Platelet mean volume (Bld) [Entitic vol] 10.6 fL Normal 7.0-12.0 [facility] Platelets (Bld) [#/Vol] 277 E9/L Normal 130-450 [facility] RBC (Bld) [#/Vol] 5.12 E12/L Normal 3.80-5.80 [facility] WBC (Bld) [#/Vol] 8.6 E9/L Normal 4.5-11.5 [facility] Comprehensive Metabolic Pane l reflex Mgon 03-28-2018 Albumin [Mass/Vol] 4.8 g/dL Normal 3.5-5.2 [facility] ALP [Catalytic activity/Vol] 81 U/L Normal 40-129 [facility] ALT [Catalytic activity/Vol] 76 U/L High 0-40 [facility] Anion gap [Moles/Vol] 13 mmol/L Normal 7-16 [facility] AST [Catalytic activity/Vol] 48 U/L High 0-39 [facility] Bilirubin [Mass/Vol] 0.4 mg/dL Normal 0.0-1.2 [facility] Calcium [Mass/Vol] 10.2 mg/dL Normal 8.6-10.2 [facility] Chloride [Moles/Vol] 100 mmol/L Normal 98-107 [facility] CO2 [Moles/Vol] 26 mmol/L Normal 22-29 [facility] Creatinine [Mass/Vol] 0.9 mg/dL Normal 0.7-1.2 [facility] GFR/1.73 sq M predicted among blacks MDRD (S/P/Bld) [Vol rate/Area] mL/min/{1.73_m2} Normal [facility] GFR/1.73 sq M predicted among non-blacks MDRD (S/P/Bld) [Vol rate/Area] mL/min/{1.73_m2} Normal >=60 [facility] Comment on above: Result Comment: [employer] russ Kidney Disease: less than 60 ml/min/1.73 sq.m. Kidney Failure: less than 15 ml/min/1.73 sq.m. Results valid for patients 18 years and older. Glucose [Mass/Vol] 101 mg/dL High 74-99 [facility] Potassium reflex Mg 4.1 mmol/L Normal 3.5-5.0 [facility] Protein [Mass/Vol] 7.9 g/dL Normal 6.4-8.3 [facility] Sodium [Moles/Vol] 139 mmol/L Normal 132-146 [facility] Urea nitrogen [Mass/Vol] 10 mg/dL Normal 6-20 [facility] Lipaseon 03-28-2018 Lipase [Catalytic activity/Vol] 141 U/L High 13-60 [facility] XR LUMBAR SPINE (2-3 VIEWS)o n 03-13-2018 XR LUMBAR SPINE (2-3 VIEWS) Location:200 Exam: XR LUMBAR SPINE (2-3 VIEWS) Indications: Fell on ice 2 days ago. Low back and bilateral lower extremity pain. No previous back surgery Findings: Comparison: None. AP and lateral views of the lumbar spine were obtained, including lateral cone down views of the thoracolumbar region and of the lumbosacral junction. 5 nonrib-bearing lumbar type vertebral bodies are seen. No fracture or dislocation is seen. No significant degenerative changes are noted. The intervertebral disc spaces are not narrowed, and no significant lumbar vertebral body osteophytes are seen. IMPRESSION: No lumbar fracture or dislocation Interpreted by: Domi Stein MD Signed by: Domi Stein MD 03/13/18 Final result Normal [facility] Vital Signs Date Time Vital Sign Value Performing Clinician Facility 12-08-2024 13:20-0400 Diastolic blood pressure 83 mm[Hg] Sonya Cramer MD Work Phone: [facility] 12-08-2024 13:20-0400 Heart rate 56 /min Sonya Cramer MD Work Phone: [facility] 12-08-2024 13:20-0400 Respiratory rate 18 /min Sonya Cramer MD Work Phone: [facility] 12-08-2024 13:20-0400 SaO2% (BldA) [Mass fraction] 100 % Sonya Cramer MD Work Phone: [facility] 12-08-2024 13:20-0400 Systolic blood pressure 127 mm[Hg] Sonya Cramer MD Work Phone: [facility] 12-08-2024 13:00-0400 Body temperature 97.3 [degF] Sonya Cramer MD Work Phone: [facility] 12-08-2024 12:25-0400 Body height 185.4 cm Sonya rCamer MD Work Phone: [facility] 12-08-2024 12:25-0400 Body mass index (BMI) [Ratio] 25.73 kg/m2 Sonya Cramer MD Work Phone: [facility] 12-08-2024 12:25-0400 Body weight 88.45 kg Sonya Cramer MD Work Phone: [facility] 12-01-2024 11:59-0400 Body temperature 98.4 [degF] No Primary Care Physician [facility] 12-01-2024 11:59-0400 Diastolic blood pressure 70 mm[Hg] No Primary Care Physician [facility] 12-01-2024 11:59-0400 Heart rate 59 /min No Primary Care Physician [facility] 12-01-2024 11:59-0400 Respiratory rate 18 /min No Primary Care Physician [facility] 12-01-2024 11:59-0400 SaO2% (BldA) [Mass fraction] 98 % No Primary Care Physician [facility] 12-01-2024 11:59-0400 Systolic blood pressure 122 mm[Hg] No Primary Care Physician [facility] 11-30-2024 13:45-0400 Body height 185.42 cm No Primary Care Physician [facility] 11-30-2024 13:45-0400 Body weight 84.32 kg No Primary Care Physician [facility] 11-30-2024 01:59-0400 Body mass index (BMI) [Ratio] 24.5 kg/m2 No Primary Care Physician [facility] 11-01-2024 08:55-0400 Body height 185.4 cm Guillermo [employer] Systems[employer] PA-C Work Phone: [facility] 11-01-2024 08:55-0400 Body mass index (BMI) [Ratio] 26.55 kg/m2 Guillermo [employer] PA-C Work Phone: [facility] 11-01-2024 08:55-0400 Body temperature 97 [degF] Guillermo [employer] PA-C Work Phone: [facility] 11-01-2024 08:55-0400 Body weight 91.26 kg Guillermo Vichosky PA-C Work Phone: [facility] 11-01-2024 08:55-0400 Diastolic blood pressure 75 mm[Hg] Guillermo Vichosky PA-C Work Phone: [facility] 11-01-2024 08:55-0400 Heart rate 72 /min Guillermo Vichosky PA-C Work Phone: [facility] 11-01-2024 08:55-0400 SaO2% (BldA) [Mass fraction] 98 % Guillermo Elieser PA-C Work Phone: [facility] 11-01-2024 08:55-0400 Systolic blood pressure 120 mm[Hg] Guillermo Elieser PA-C Work Phone: [facility] 08-23-2024 11:02-0400 Body temperature 96.4 [degF] Seema Hartley CARDIOTHORACIC ICU RN - [employer] Work Phone: [facility] 08-23-2024 11:02-0400 Diastolic blood pressure 62 mm[Hg] Seema Hartley CARDIOTHORACIC ICU RN - [employer] Work Phone: [facility] 08-23-2024 11:02-0400 Heart rate 73 /min Seema Mclains CARDIOTHORACIC ICU RN - [employer] Work Phone: [facility] 08-23-2024 11:02-0400 SaO2% (BldA) [Mass fraction] 97 % Seema Hartley CARDIOTHORACIC ICU RN - [employer] Work Phone: [facility] 08-23-2024 11:02-0400 Systolic blood pressure 114 mm[Hg] Seema Hartley CARDIOTHORACIC ICU RN - [employer] Work Phone: [facility] 06-26-2024 22:08-0400 Diastolic blood pressure 97 mm[Hg] Mejgon Gifty DO Work Phone: [facility] 06-26-2024 22:08-0400 Heart rate 94 /min Mejgon Gifty DO Work Phone: [facility] 06-26-2024 22:08-0400 Respiratory rate 18 /min Mejgon Gifty DO Work Phone: [facility] 06-26-2024 22:08-0400 SaO2% (BldA) [Mass fraction] 98 % Mejgon Gifty DO Work Phone: [facility] 06-26-2024 22:08-0400 Systolic blood pressure 136 mm[Hg] Mejgon Gifty DO Work Phone: [facility] 06-26-2024 19:11-0400 Body height 185.4 cm Mattie Durbin DO Work Phone: [facility] 06-26-2024 19:11-0400 Body mass index (BMI) [Ratio] 27.71 kg/m2 Mattie Durbin DO Work Phone: [facility] 06-26-2024 19:11-0400 Body weight 95.25 kg Mattie Durbin DO Work Phone: [facility] 06-26-2024 19:10-0400 Body temperature 98.2 [degF] Mattie Durbin DO Work Phone: [facility] 06-20-2024 00:09-0400 Diastolic blood pressure 70 mm[Hg] Cory Adame DO Work Phone: [facility] 06-20-2024 00:09-0400 Heart rate 69 /min Cory Adame DO Work Phone: [facility] 06-20-2024 00:09-0400 Respiratory rate 14 /min Cory Adame DO Work Phone: [facility] 06-20-2024 00:09-0400 SaO2% (BldA) [Mass fraction] 99 % Cory Adame DO Work Phone: [facility] 06-20-2024 00:09-0400 Systolic blood pressure 111 mm[Hg] Cory Wakefieldy DO Work Phone: [facility] 06-19-2024 19:27-0400 Body temperature 97.39 [degF] Cory Wakefieldy DO Work Phone: [facility] 06-19-2024 19:25-0400 Body height 185.4 cm Cory Wakefieldy DO Work Phone: [facility] 06-19-2024 19:25-0400 Body mass index (BMI) [Ratio] 29.03 kg/m2 Cory Wakefieldy DO Work Phone: [facility] 06-19-2024 19:25-0400 Body weight 99.79 kg Cory Adame DO Work Phone: [facility] 06-18-2024 16:59-0400 Diastolic blood pressure 94 mm[Hg] Tam Rich DO Work Phone: [facility] 06-18-2024 16:59-0400 Heart rate 90 /min Tam Rich DO Work Phone: [facility] 06-18-2024 16:59-0400 Respiratory rate 16 /min Tam Rich DO Work Phone: [facility] 06-18-2024 16:59-0400 Systolic blood pressure 142 mm[Hg] Tam Rich DO Work Phone: [facility] 06-18-2024 15:35-0400 Body temperature 97.3 [degF] Tam Rich DO Work Phone: [facility] 06-18-2024 15:35-0400 SaO2% (BldA) [Mass fraction] 100 % Tam Rich DO Work Phone: [facility] 06-18-2024 15:35-0400 Body height 185.4 cm Tam Rich DO Work Phone: [facility] 06-18-2024 15:35-0400 Body mass index (BMI) [Ratio] 27.71 kg/m2 Tam Rich DO Work Phone: [facility] 06-18-2024 15:35-0400 Body weight 95.25 kg Tam Rich DO Work Phone: [facility] 06-12-2024 23:36-0400 Diastolic blood pressure 92 mm[Hg] Donald Hill Jr., DO Work Phone: [facility] 06-12-2024 23:36-0400 Heart rate 97 /min Donald Hill Jr., DO Work Phone: [facility] 06-12-2024 23:36-0400 Respiratory rate 16 /min Donald Hill JrJose, DO Work Phone: [facility] 06-12-2024 23:36-0400 SaO2% (BldA) [Mass fraction] 97 % Donald Hill Jr., DO Work Phone: [facility] 06-12-2024 23:36-0400 Systolic blood pressure 159 mm[Hg] Donald Hill Jr., DO Work Phone: [facility] 06-12-2024 20:55-0400 Body mass index (BMI) [Ratio] 29.03 kg/m2 Donald Hill Jr., DO Work Phone: [facility] 06-12-2024 20:55-0400 Body temperature 100 [degF] Donald Hill Jr., DO Work Phone: [facility] 06-12-2024 20:55-0400 Body weight 99.79 kg Donald Hill Jr., DO Work Phone: [facility] 06-04-2024 15:37-0400 Body mass index (BMI) [Ratio] 29.69 kg/m2 Josseline Weber MD Work Phone: [facility] 06-04-2024 15:37-0400 Body temperature 97.3 [degF] Josseline Weber MD Work Phone: [facility] 06-04-2024 15:37-0400 Body weight 102.06 kg Josseline Weber MD Work Phone: [facility] 06-04-2024 15:37-0400 Diastolic blood pressure 109 mm[Hg] Josseline Weber MD Work Phone: [facility] 06-04-2024 15:37-0400 Heart rate 103 /min Josseline Weber MD Work Phone: [facility] 06-04-2024 15:37-0400 Respiratory rate 18 /min Josseline Weber MD Work Phone: [facility] 06-04-2024 15:37-0400 SaO2% (BldA) [Mass fraction] 99 % Josseline Weber MD Work Phone: [facility] 06-04-2024 15:37-0400 Systolic blood pressure 157 mm[Hg] Josseline Weber MD Work Phone: [facility] 06-01-2024 12:57-0400 Body height 185.4 cm Seema Hartley CARDIOTHORACIC ICU RN - [employer] Work Phone: [facility] 06-01-2024 12:57-0400 Body mass index (BMI) [Ratio] 29.79 kg/m2 Seema Hartley CARDIOTHORACIC ICU RN - [employer] Work Phone: [facility] 06-01-2024 12:57-0400 Body temperature 97 [degF] Seema Hartley CARDIOTHORACIC ICU RN - [employer] Work Phone: [facility] 06-01-2024 12:57-0400 Body weight 102.42 kg Seema Hartley CARDIOTHORACIC ICU RN - [employer] Work Phone: [facility] 06-01-2024 12:57-0400 Diastolic blood pressure 78 mm[Hg] Seema Hartley CARDIOTHORACIC ICU RN - [employer] Work Phone: [facility] 06-01-2024 12:57-0400 Heart rate 80 /min Seema Hartley CARDIOTHORACIC ICU RN - [employer] Work Phone: [facility] 06-01-2024 12:57-0400 SaO2% (BldA) [Mass fraction] 98 % Seema Hartley CARDIOTHORACIC ICU RN - [employer] Work Phone: [facility] 06-01-2024 12:57-0400 Systolic blood pressure 116 mm[Hg] Seema Hartley CARDIOTHORACIC ICU RN - [employer] Work Phone: [facility] 05-30-2024 22:07-0400 Body height 185.4 cm Mattie Gifty DO Work Phone: [facility] 05-30-2024 22:07-0400 Body mass index (BMI) [Ratio] 32.98 kg/m2 Mejgon Gifty DO Work Phone: [facility] 05-30-2024 22:07-0400 Body temperature 97.9 [degF] Mattie Gifty DO Work Phone: [facility] 05-30-2024 22:07-0400 Body weight 113.4 kg Mattie Gallegosya DO Work Phone: [facility] 05-30-2024 22:07-0400 Diastolic blood pressure 96 mm[Hg] Latonian Gifty DO Work Phone: [facility] 05-30-2024 22:07-0400 Heart rate 88 /min Mattie Gifty DO Work Phone: [facility] 05-30-2024 22:07-0400 Respiratory rate 18 /min Mattie Gifty DO Work Phone: [facility] 05-30-2024 22:07-0400 SaO2% (BldA) [Mass fraction] 97 % Mattie Gallegosya DO Work Phone: [facility] 05-30-2024 22:07-0400 Systolic blood pressure 149 mm[Hg] Mattie Gallegosya DO Work Phone: [facility] 05-22-2024 17:16-0400 Diastolic blood pressure 88 mm[Hg] Tam Rich DO Work Phone: [facility] 05-22-2024 17:16-0400 Heart rate 97 /min Tam Rich DO Work Phone: [facility] 05-22-2024 17:16-0400 Respiratory rate 16 /min Tam Rich DO Work Phone: [facility] 05-22-2024 17:16-0400 SaO2% (BldA) [Mass fraction] 99 % Tam Rich DO Work Phone: [facility] 05-22-2024 17:16-0400 Systolic blood pressure 149 mm[Hg] Tam Rich DO Work Phone: [facility] 05-22-2024 14:09-0400 Body temperature 97 [degF] Tam Rich DO Work Phone: [facility] 05-07-2024 18:12-0400 Diastolic blood pressure 107 mm[Hg] Markie Gombash DO Work Phone: [facility] 05-07-2024 18:12-0400 Heart rate 84 /min Markie Gombash DO Work Phone: [facility] 05-07-2024 18:12-0400 Respiratory rate 16 /min Markie Gombash DO Work Phone: [facility] 05-07-2024 18:12-0400 SaO2% (BldA) [Mass fraction] 97 % Markie Gombash DO Work Phone: [facility] 05-07-2024 18:12-0400 Systolic blood pressure 142 mm[Hg] Markie Gombash DO Work Phone: [facility] 05-07-2024 16:27-0400 Body temperature 97.39 [degF] Markie Gombash DO Work Phone: [facility] 05-07-2024 16:23-0400 Body height 185.4 cm Markie Gombash DO Work Phone: [facility] 05-07-2024 16:23-0400 Body mass index (BMI) [Ratio] 32.98 kg/m2 Markie Gombash DO Work Phone: [facility] 05-07-2024 16:23-0400 Body weight 113.4 kg Markie Gombash DO Work Phone: [facility] 04-20-2024 04:57-0400 Body temperature 97.81 [degF] Nancy Sultana DO Work Phone: [facility] 04-20-2024 04:57-0400 Diastolic blood pressure 83 mm[Hg] Nancylorraine Sultana DO Work Phone: [facility] 04-20-2024 04:57-0400 Heart rate 62 /min Nancylorraine Sultana DO Work Phone: [facility] 03-12-2025 04:57-0400 Respiratory rate 16 /min Nancy Sultana DO Work Phone: [facility] 04-20-2024 04:57-0400 SaO2% (BldA) [Mass fraction] 97 % Nancy Sultana DO Work Phone: [facility] 04-20-2024 04:57-0400 Systolic blood pressure 129 mm[Hg] Nancy Sultana DO Work Phone: [facility] 04-16-2024 23:27-0500 Body height 185.4 cm Nancy Sultana DO Work Phone: [facility] 04-16-2024 23:27-0500 Body mass index (BMI) [Ratio] 32.32 kg/m2 Nancy Sultana DO Work Phone: [facility] 04-16-2024 23:27-0500 Body weight 111.13 kg Nancy Sultana DO Work Phone: [facility] 04-06-2024 13:10-0500 Diastolic blood pressure 65 mm[Hg] [facility]-06-[facility] 13:10-0500 Heart rate 65 /min En[facility] Boyd [facility] 04-06-2024 13:10-0500 Systolic blood pressure 112 mm[Hg] [facility] Boyd [facility] 04-06-2024 11:07-0500 Body temperature 98.8 [degF] Enio Boyd DO Work Phone: [facility] 04-06-2024 11:07-0500 Respiratory rate 16 /min Enio Boyd DO Work Phone: [facility] 04-06-2024 11:07-0500 SaO2% (BldA) [Mass fraction] 96 % Enio Boyd DO Work Phone: [facility] 04-04-2024 04:10-0500 Body height 185.4 cm Enio Boyd DO Work Phone: [facility] 04-04-2024 04:10-0500 Body mass index (BMI) [Ratio] 32.32 kg/m2 Enio Boyd DO Work Phone: [facility] 04-04-2024 04:10-0500 Body weight 111.13 kg Enio Boyd DO Work Phone: [facility] 03-22-2024 15:37-0500 Diastolic blood pressure 103 mm[Hg] Tam Rich DO Work Phone: [facility] 03-22-2024 15:37-0500 Heart rate 102 /min Tam Rich DO Work Phone: [facility] 03-22-2024 15:37-0500 Respiratory rate 16 /min Tam Rich DO Work Phone: [facility] 03-22-2024 15:37-0500 SaO2% (BldA) [Mass fraction] 97 % Tam Rich DO Work Phone: [facility] 03-22-2024 15:37-0500 Systolic blood pressure 154 mm[Hg] Tam Rich DO Work Phone: [facility] 03-22-2024 13:17-0500 Body temperature 97.39 [degF] Tam Rich DO Work Phone: [facility] 02-08-2024 12:04-0500 Body temperature 97.9 [degF] Francisco Landa MD Work Phone: [facility] 02-08-2024 12:04-0500 Diastolic blood pressure 102 mm[Hg] Francisco Landa MD Work Phone: [facility] 02-08-2024 12:04-0500 Heart rate 102 /min Francisco Landa MD Work Phone: [facility] 02-08-2024 12:04-0500 Respiratory rate 18 /min Francisco Landa MD Work Phone: [facility] 02-08-2024 12:04-0500 SaO2% (BldA) [Mass fraction] 95 % Francisco Landa MD Work Phone: [facility] 02-08-2024 12:04-0500 Systolic blood pressure 141 mm[Hg] Francisco Landa MD Work Phone: [facility] 02-06-2024 13:02-0500 Body height 185.4 cm Francisco Landa MD Work Phone: [facility] 02-04-2024 13:21-0500 Body mass index (BMI) [Ratio] 31 kg/m2 Francisco Landa MD Work Phone: [facility] 02-04-2024 13:21-0500 Body weight 106.59 kg Francisco Landa MD Work Phone: [facility] 01-26-2024 05:42-0500 Body temperature 97.7 [degF] Calvin Stephens MD Work Phone: [facility] 01-26-2024 05:42-0500 Diastolic blood pressure 92 mm[Hg] Calvin Stephens MD Work Phone: [facility] 01-26-2024 05:42-0500 Heart rate 83 /min Calvin Stephens MD Work Phone: [facility] 01-26-2024 05:42-0500 Respiratory rate 18 /min Calvin Stephens MD Work Phone: [facility] 01-26-2024 05:42-0500 SaO2% (BldA) [Mass fraction] 97 % Calvin Stephens MD Work Phone: [facility] 01-26-2024 05:42-0500 Systolic blood pressure 134 mm[Hg] Calvin Stephens MD Work Phone: [facility] 01-08-2024 05:28-0500 Body temperature 97.3 [degF] Gracy Dyer DO Work Phone: [facility] 01-08-2024 05:28-0500 Diastolic blood pressure 107 mm[Hg] Gracy Dyer DO Work Phone: [facility] 01-08-2024 05:28-0500 Heart rate 91 /min Gracy Dyer DO Work Phone: [facility] 01-08-2024 05:28-0500 Respiratory rate 18 /min Gracy Dyer DO Work Phone: [facility] 01-08-2024 05:28-0500 SaO2% (BldA) [Mass fraction] 97 % Gracy Dyer DO Work Phone: [facility] 01-08-2024 05:28-0500 Systolic blood pressure 164 mm[Hg] Gracy Dyer DO Work Phone: [facility] 01-08-2024 05:26-0500 Body height 185.4 cm Grcay Dyer DO Work Phone: [facility] 01-08-2024 05:26-0500 Body mass index (BMI) [Ratio] 32.32 kg/m2 Gracy Dyer DO Work Phone: [facility] 01-08-2024 05:26-0500 Body weight 111.13 kg Gracy Dyer DO Work Phone: [facility] 12-17-2023 07:22-0500 Body temperature 97.81 [degF] Idris Danielson MD Work Phone: [facility] 12-17-2023 07:22-0500 Diastolic blood pressure 92 mm[Hg] Idris Danielson MD Work Phone: [facility] 12-17-2023 07:22-0500 Heart rate 62 /min Idris Danielson MD Work Phone: [facility] 12-17-2023 07:22-0500 Respiratory rate 17 /min Idris Danielson MD Work Phone: [facility] 12-17-2023 07:22-0500 SaO2% (BldA) [Mass fraction] 96 % Idris Danielson MD Work Phone: [facility] 12-17-2023 07:22-0500 Systolic blood pressure 146 mm[Hg] Idris Danielson MD Work Phone: [facility] 12-16-2023 07:27-0500 Body height 177.8 cm Idris Danielson MD Work Phone: [facility] 12-14-2023 08:18-0500 Body mass index (BMI) [Ratio] 36.06 kg/m2 Idris Danielson MD Work Phone: [facility] 12-14-2023 08:18-0500 Body weight 114 kg Idris Danielson MD Work Phone: [facility] 11-28-2023 09:05-0400 Body temperature 97.5 [degF] DENA Jett MD Work Phone: [facility] 11-28-2023 09:05-0400 Diastolic blood pressure 75 mm[Hg] DENA Jett MD Work Phone: [facility] 11-28-2023 09:05-0400 Heart rate 69 /min DENA Jett MD Work Phone: [facility] 11-28-2023 09:05-0400 Respiratory rate 17 /min DENA Jett MD Work Phone: [facility] 11-28-2023 09:05-0400 SaO2% (BldA) [Mass fraction] 96 % DENA Jett MD Work Phone: [facility] 11-28-2023 09:05-0400 Systolic blood pressure 125 mm[Hg] DENA Jett MD Work Phone: [facility] 11-27-2023 15:12-0400 Body height 185.4 cm DENA Jett MD Work Phone: [facility] 11-21-2023 14:17-0400 Body mass index (BMI) [Ratio] 33.25 kg/m2 DENA Jett MD Work Phone: [facility] 11-21-2023 14:17-0400 Body weight 114.31 kg DENA Jett MD Work Phone: [facility] 10-18-2023 07:50-0400 Body temperature 96.91 [degF] Francisco Zee MD Work Phone: [facility] 10-18-2023 07:50-0400 Diastolic blood pressure 73 mm[Hg] Francisco Zee MD Work Phone: [facility] 10-18-2023 07:50-0400 Heart rate 79 /min Francisco Zee MD Work Phone: [facility] 10-18-2023 07:50-0400 Respiratory rate 18 /min Francisco Zee MD Work Phone: [facility] 10-18-2023 07:50-0400 SaO2% (BldA) [Mass fraction] 94 % Francisco Zee MD Work Phone: [facility] 10-18-2023 07:50-0400 Systolic blood pressure 120 mm[Hg] Francisco Zee MD Work Phone: [facility] 10-16-2023 18:54-0400 Body height 185 cm Francisco Zee MD Work Phone: [facility] 10-16-2023 18:54-0400 Body mass index (BMI) [Ratio] 33.13 kg/m2 Francisco Zee MD Work Phone: [facility] 10-16-2023 18:54-0400 Body weight 113.4 kg Francisco Zee MD Work Phone: [facility] 10-16-2023 04:13-0400 Diastolic blood pressure 88 mm[Hg] Idris Danielson MD Work Phone: [facility] 10-16-2023 04:13-0400 Heart rate 72 /min Idris Danielson MD Work Phone: [facility] 10-16-2023 04:13-0400 Respiratory rate 16 /min Idris Danielson MD Work Phone: [facility] 10-16-2023 04:13-0400 SaO2% (BldA) [Mass fraction] 96 % Idris Danielson MD Work Phone: [facility] 10-16-2023 04:13-0400 Systolic blood pressure 158 mm[Hg] Idris Danielson MD Work Phone: [facility] 10-16-2023 01:44-0400 Body height 185.4 cm Idris Danielson MD Work Phone: [facility] 10-16-2023 01:44-0400 Body mass index (BMI) [Ratio] 32.98 kg/m2 Idris Danielson MD Work Phone: [facility] 10-16-2023 01:44-0400 Body temperature 97.39 [degF] Idris Danielson MD Work Phone: [facility] 10-16-2023 01:44-0400 Body weight 113.4 kg Idris Danielson MD Work Phone: [facility] 10-01-2023 03:04-0400 Body temperature 97.9 [degF] Bhupinder Boyd MD Work Phone: [facility] 10-01-2023 03:04-0400 Diastolic blood pressure 100 mm[Hg] Bhupinder Boyd MD Work Phone: [facility] 10-01-2023 03:04-0400 Heart rate 94 /min Bhupinder Boyd MD Work Phone: [facility] 10-01-2023 03:04-0400 Respiratory rate 18 /min Bhupinder Boyd MD Work Phone: [facility] 10-01-2023 03:04-0400 SaO2% (BldA) [Mass fraction] 97 % Bhupinder Boyd MD Work Phone: [facility] 10-01-2023 03:04-0400 Systolic blood pressure 146 mm[Hg] Bhupinder Boyd MD Work Phone: [facility] 08-15-2023 11:10-0400 Body temperature 98.01 [degF] Jossy Lynn MD Work Phone: [facility] 08-15-2023 11:10-0400 Diastolic blood pressure 91 mm[Hg] Jossy Lynn MD Work Phone: [facility] 08-15-2023 11:10-0400 Heart rate 63 /min Jossy Lynn MD Work Phone: [facility] 08-15-2023 11:10-0400 Respiratory rate 16 /min Jossy Lynn MD Work Phone: [facility] 08-15-2023 11:10-0400 SaO2% (BldA) [Mass fraction] 95 % Jossy Lynn MD Work Phone: [facility] 08-15-2023 11:10-0400 Systolic blood pressure 150 mm[Hg] Jossy Lynn MD Work Phone: [facility] 08-10-2023 20:07-0400 Body height 185.4 cm Jossy Lynn MD Work Phone: [facility] 08-10-2023 20:07-0400 Body mass index (BMI) [Ratio] 35.62 kg/m2 Jossy Lynn MD Work Phone: [facility] 08-10-2023 20:07-0400 Body weight 122.47 kg Jossy Lynn MD Work Phone: [facility] 06-28-2023 09:13-0400 Body temperature 97.11 [degF] Jossy Lynn MD Work Phone: [facility] 06-28-2023 09:13-0400 Diastolic blood pressure 91 mm[Hg] Jossy Lynn MD Work Phone: [facility] 06-28-2023 09:13-0400 Heart rate 66 /min Jossy Lynn MD Work Phone: [facility] 06-28-2023 09:13-0400 Respiratory rate 16 /min Jossy Lynn MD Work Phone: [facility] 06-28-2023 09:13-0400 SaO2% (BldA) [Mass fraction] 96 % Jossy Lynn MD Work Phone: [facility] 06-28-2023 09:13-0400 Systolic blood pressure 145 mm[Hg] Jossy Lynn MD Work Phone: [facility] 06-25-2023 10:29-0400 Body height 185.4 cm Jossy Lynn MD Work Phone: [facility] 06-25-2023 10:29-0400 Body mass index (BMI) [Ratio] 32.98 kg/m2 Jossy Lynn MD Work Phone: [facility] 06-25-2023 10:29-0400 Body weight 113.4 kg Jossy Lynn MD Work Phone: [facility] 01-07-2023 08:05-0500 Body height 185.4 cm Erin Signs Work Phone: [facility] 01-07-2023 08:05-0500 Body mass index (BMI) [Ratio] 32.32 kg/m2 Erin Signs Work Phone: [facility] 01-07-2023 08:05-0500 Body temperature 97.3 [degF] Erin Signs Work Phone: [facility] 01-07-2023 08:05-0500 Body weight 111.13 kg Erin Signs Work Phone: [facility] 01-07-2023 08:05-0500 Diastolic blood pressure 78 mm[Hg] Erin Signs Work Phone: [facility] 01-07-2023 08:05-0500 Heart rate 64 /min Erin Signs Work Phone: [facility] 01-07-2023 08:05-0500 SaO2% (BldA) [Mass fraction] 98 % Erin Arce MD Work Phone: [facility] 01-07-2023 08:05-0500 Systolic blood pressure 124 mm[Hg] Erin Arce MD Work Phone: [facility] 12-16-2022 23:58-0500 Body temperature 98.2 [degF] Duong Milian MD Work Phone: [facility] 12-16-2022 23:58-0500 Diastolic blood pressure 76 mm[Hg] Duong Milian MD Work Phone: [facility] 12-16-2022 23:58-0500 Heart rate 65 /min Duong Milian MD Work Phone: [facility] 12-16-2022 23:58-0500 Respiratory rate 18 /min Duong Milian MD Work Phone: [facility] 12-16-2022 23:58-0500 SaO2% (BldA) [Mass fraction] 96 % Duong Milian MD Work Phone: [facility] 12-16-2022 23:58-0500 Systolic blood pressure 112 mm[Hg] Duong Milian MD Work Phone: [facility] 11-08-2022 12:00-0400 Body temperature 97.7 [degF] Bhupinder Boyd MD Work Phone: [facility] 11-08-2022 12:00-0400 Diastolic blood pressure 84 mm[Hg] Bhupinder Byod MD Work Phone: [facility] 11-08-2022 12:00-0400 Heart rate 78 /min Bhupinder Boyd MD Work Phone: [facility] 11-08-2022 12:00-0400 Respiratory rate 16 /min Bhupinder Boyd MD Work Phone: [facility] 11-08-2022 12:00-0400 SaO2% (BldA) [Mass fraction] 95 % Bhupinder Boyd MD Work Phone: [facility] 11-08-2022 12:00-0400 Systolic blood pressure 124 mm[Hg] Bhupinder Boyd MD Work Phone: [facility] 11-06-2022 09:00-0400 Body mass index (BMI) [Ratio] 36.3 kg/m2 Bhupinder Boyd MD Work Phone: [facility] 11-06-2022 09:00-0400 Body weight 114.76 kg Bhupinder Boyd MD Work Phone: [facility] 11-06-2022 06:47-0400 Body height 177.8 cm Bhupinder Boyd MD Work Phone: [facility] 08-10-2022 04:06-0400 Diastolic blood pressure 99 mm[Hg] Guillermo Perales MD Work Phone: [facility] 08-10-2022 04:06-0400 Heart rate 92 /min Guillermo Perales MD Work Phone: [facility] 08-10-2022 04:06-0400 Respiratory rate 16 /min Guillermo Perales MD Work Phone: [facility] 08-10-2022 04:06-0400 SaO2% (BldA) [Mass fraction] 98 % Guillermo Perales MD Work Phone: [facility] 08-10-2022 04:06-0400 Systolic blood pressure 137 mm[Hg] Guillermo Perales MD Work Phone: [facility] 08-10-2022 01:29-0400 Body temperature 98.1 [degF] Guillermo Perales MD Work Phone: [facility] 07-11-2022 00:44-0400 Diastolic blood pressure 82 mm[Hg] Shaan Voll DO Work Phone: [facility] 07-11-2022 00:44-0400 Heart rate 74 /min Shaan Voll DO Work Phone: [facility] 07-11-2022 00:44-0400 Respiratory rate 18 /min Shaan Voll DO Work Phone: [facility] 07-11-2022 00:44-0400 SaO2% (BldA) [Mass fraction] 98 % Shaan Voll DO Work Phone: [facility] 07-11-2022 00:44-0400 Systolic blood pressure 134 mm[Hg] Shaan Voll DO Work Phone: [facility] 07-10-2022 22:44-0400 Body height 182.9 cm Shaan Voll DO Work Phone: [facility] 07-10-2022 22:44-0400 Body mass index (BMI) [Ratio] 31.19 kg/m2 Shaan Voll DO Work Phone: [facility] 07-10-2022 22:44-0400 Body temperature 98.01 [degF] Shaan Voll DO Work Phone: [facility] 07-10-2022 22:44-0400 Body weight 104.33 kg Shaan Voll DO Work Phone: [facility] 06-12-2022 15:19-0400 Body temperature 97.3 [degF] Neetu Jiménez Work Phone: [facility] 06-12-2022 15:19-0400 Diastolic blood pressure 101 mm[Hg] [facility] 06-12-2022 15:19-0400 Heart rate 91 /min Neetu Carvajaltz Work Phone: [facility] 06-12-2022 15:19-0400 Respiratory rate 16 /min Neetu Jiménez Work Phone: [facility] 06-12-2022 15:19-0400 SaO2% (BldA) [Mass fraction] 97 % Neetu Jiménez Work Phone: [facility] 06-12-2022 15:19-0400 Systolic blood pressure 147 mm[Hg] Neetu Carvajaltz Work Phone: [facility] 05-25-2022 20:22-0400 Body temperature 98.29 [degF] Mary Hamlin MD Work Phone: [facility] 05-25-2022 20:22-0400 Diastolic blood pressure 79 mm[Hg] Mary Hamlin MD Work Phone: [facility] 05-25-2022 20:22-0400 Heart rate 71 /min Mary Hamlin MD Work Phone: [facility] 05-25-2022 20:22-0400 Respiratory rate 18 /min Mary Hamlin MD Work Phone: [facility] 05-25-2022 20:22-0400 SaO2% (BldA) [Mass fraction] 95 % Mary Hamlin MD Work Phone: [facility] 05-25-2022 20:22-0400 Systolic blood pressure 138 mm[Hg] Mary Hamlin MD Work Phone: [facility] 05-25-2022 16:24-0400 Body height 182.9 cm Mary Hamlin MD Work Phone: [facility] 05-25-2022 16:24-0400 Body mass index (BMI) [Ratio] 31.87 kg/m2 Mary Hamlin MD Work Phone: [facility] 05-25-2022 16:24-0400 Body weight 106.59 kg Mary Hamlin MD Work Phone: [facility] 05-24-2022 06:45-0400 Diastolic blood pressure 84 mm[Hg] Mary Hamlin MD Work Phone: [facility] 05-24-2022 06:45-0400 Heart rate 67 /min Mary Hamlin MD Work Phone: [facility] 05-24-2022 06:45-0400 Respiratory rate 18 /min Mary Hamlin MD Work Phone: [facility] 05-24-2022 06:45-0400 SaO2% (BldA) [Mass fraction] 96 % Mary Hamlin MD Work Phone: [facility] 05-24-2022 06:45-0400 Systolic blood pressure 140 mm[Hg] Mary Hamlin MD Work Phone: [facility] 05-23-2022 23:17-0400 Body temperature 98.01 [degF] Mary Hamlin MD Work Phone: [facility] 05-23-2022 21:19-0400 Body height 185.4 cm Mary Hamlin MD Work Phone: [facility] 05-23-2022 21:19-0400 Body mass index (BMI) [Ratio] 31 kg/m2 Mary Hamlin MD Work Phone: [facility] 05-23-2022 21:19-0400 Body weight 106.59 kg Mary Hamlin MD Work Phone: [facility] 05-02-2022 20:29-0400 Heart rate 81 /min Neetu Jiménez Work Phone: [facility] 05-02-2022 20:29-0400 Respiratory rate 20 /min Neetu Jiménez Work Phone: [facility] 05-02-2022 20:29-0400 SaO2% (BldA) [Mass fraction] 97 % Neetu Jiménez Work Phone: [facility] 05-02-2022 18:34-0400 Body height 185.4 cm Neetu Jiménez Work Phone: [facility] 05-02-2022 18:34-0400 Body mass index (BMI) [Ratio] 31 kg/m2 Neetu Jiménez Work Phone: [facility] 05-02-2022 18:34-0400 Body weight 106.59 kg Neetu Jiménez Work Phone: [facility] 05-02-2022 18:30-0400 Diastolic blood pressure 88 mm[Hg] Neetu Jiménez Work Phone: [facility] 05-02-2022 18:30-0400 Systolic blood pressure 156 mm[Hg] Neetu Jiménez Work Phone: [facility] 05-02-2022 18:18-0400 Body temperature 97.81 [degF] Neetu Jiménez Work Phone: [facility] 03-19-2022 11:27-0500 Body temperature 98.6 [degF] Josseline Weber MD Work Phone: [facility] 03-19-2022 11:27-0500 Diastolic blood pressure 88 mm[Hg] Josseline Weber MD Work Phone: [facility] 03-19-2022 11:27-0500 Heart rate 78 /min Josseline Weber MD Work Phone: [facility] 03-19-2022 11:27-0500 SaO2% (BldA) [Mass fraction] 98 % Josseline Weber MD Work Phone: [facility] 03-19-2022 11:27-0500 Systolic blood pressure 125 mm[Hg] Josseline Wbeer MD Work Phone: [facility] 03-19-2022 05:57-0500 Respiratory rate 16 /min Josseline Weber MD Work Phone: [facility] 03-18-2022 17:19-0500 Body height 185.4 cm Josseline Weber MD Work Phone: [facility] 03-18-2022 17:19-0500 Body mass index (BMI) [Ratio] 31.66 kg/m2 Josseline Weber MD Work Phone: [facility] 03-18-2022 17:19-0500 Body weight 108.86 kg Josseline Weber MD Work Phone: [facility] 07-28-2019 20:18-0400 Body Temperature 97.9 [degF] Neetu Jiménez [email or web address] [place] 07-28-2019 20:18-0400 BP Diastolic 95 mm[Hg] Neetu Jiménez [email or web address] [place] , [place] 07-28-2019 20:18-0400 BP Systolic 141 mm[Hg] Neetu Jiménez [facility] [place] , [place] 07-28-2019 20:18-0400 Pulse (Heart Rate) 58 /min Neetu Jiménez [facility] [place], [place] 07-28-2019 20:18-0400 Pulse Oximetry 98 % Neetu Jiménez [facility] [place] , [place] 07-28-2019 20:18-0400 Respiratory Rate 16 /min Neetu Tino [facility] [place] 07-28-2019 17:51-0400 BMI (Body Mass Index) 32.32 kg/m2 Neetu [facility] [place], [place] 07-28-2019 17:51-0400 Body weight 111.13 kg [facility] , [place] Encounters Encounter Date Encounter Type Care Provider Facility Start: 12-13-2024 End: 12-13-2024 Telephone encounter Katherin Monroe MA [facility] [place] Start: 12-08-2024 End: 12-08-2024 ambulatory TAM HUGHES [facility] Start: 12-08-2024 End: 12-08-2024 Subsequent hospital visit by physician Sonya Cramer MD Work Phone: [facility] Start: 12-01-2024 Non-patient / Non-visit Dr. Joe mclain [facility] Work Phone: Start: 11-30-2024 ambulatory Lázaro Olivo ty:[facility] Start: 11-30-2024 End: 12-01-2024 Evaluation and management of inpatient Joe Mcmillan Facility:[facility] Start: 11-24-2024 End: 11-24-2024 Telephone encounter Suzy Carrero MA [facility] [place] Comment on above: Appointment Confirma tion Start: 11-15-2024 End: 11-15-2024 Patient encounter procedure Ajay Ochoa DMD Work Phone: [facility] Comment on above: Extraction of tooth needed (Primary Dx) Start: 11-15-2024 End: 11-15-2024 ambulatory AJAY OCHOA [facility] Start: 11-07-2024 End: 11-08-2024 Follow-up encounter Guillermo Mon PA-C [facility] Comment on above: AFP Tumor Marker, He patitis A Antibody, Total, Comprehensive metabolic panel, Additional followed-up results: 2 Start: 11-01-2024 End: 11-01-2024 Telephone encounter [facility] on above: Care Coordination Start: 11-01-2024 End: 11-01-2024 Office outpatient visit 25 minutes Guillermo Mon PA-C [facility] Comment on above: Alcoholic cirrhosis of liver without ascites (CMS/HCC) (HCC) (Primary Dx); Alcohol induced acute pancreatitis without necrosis or infection; Elevated liver enzymes; History of alcohol abuse; Polysubstance use disorder Alcoholic cirrhosis of liver without ascites (HCC) (Primary Dx); Alcohol induced acute pancreatitis without necrosis or infection; Elevated liver enzymes; History of alcohol abuse; Polysubstance use disorder Start: 11-01-2024 End: 11-01-2024 ambulatory [facility] Start: 10-17-2024 End: 10-18-2024 Telephone encounter Provider Dental DDS Work Phone: [facility] Start: 10-12-2024 End: 10-12-2024 ambulatory GUILLERMOJAZMÍN PEACEKiran [facility] Start: 10-04-2024 FQHC visit, estab pt Lauren Perez DDS Work Phone: [facility] Start: 10-04-2024 End: 10-04-2024 Patient encounter procedure Lauren Perez DDS Work Phone: [facility] Start: 10-04-2024 End: 10-04-2024 ambulatory [facility] Start: 2024 End: 2024 ambulatory [facility] Start: 2024 End: 10-03-2024 Follow-up encounter Guillermo Mon PA-C Work [facility] Comment on above: Fibroscan Fibroscan, Protime-I NR, Liver-Kidney Microsome 1 Ab, Additional followed-up results: 10 Start: 2024 End: 2024 [facility] Start: 08-29-2024 End: 08-31-2024 Telephone encounter Provider Dental DDS Work Phone: [facility] Start: 08-24-2024 End: 08-24-2024 Patient encounter procedure Lauren Gold Bayron DDS Work Phone: [facility] Start: 08-24-2024 End: 08-24-2024 [facility] Start: 08-23-2024 End: 08-23-2024 Office outpatient visit 25 minutes Seema Hartley APRN - [employer] Work Phone: [facility] Comment on above: Alcohol induced acut e pancreatitis without necrosis or infection (Primary Dx); Elevated liver enzymes Start: 08-23-2024 End: 08-23-2024 ambulatory [facility] Start: 08-09-2024 End: 08-15-2024 Telephone encounter Tyree Lam DDS Work Phone: [facility] Comment on above: Reschedule Start: 07-25-2024 End: 07-25-2024 Telephone encounter Seema Hartley CARDIOTHORACIC ICU RN - [employer] Work Phone: [facility] Start: 07-02-2024 End: 07-02-2024 Emergency department patient visit ENIO Jacki BOYD [facility] Start: 06-26-2024 End: 06-26-2024 Emergency department patient visit Mattie Durbin DO Work Phone: [facility] ED Comment on above: Alcohol-induced acut e pancreatitis without infection or necrosis (Primary Dx) Start: 06-21-2024 End: 08-21-2024 Follow-up encounter Seema Hartley CARDIOTHORACIC ICU RN - [employer] Work Phone: [facility] Comment on above: MR abdomen w and wo contrast, Triglyceride, Calcium, IgG 4 Start: 06-20-2024 End: 06-20-2024 Subsequent hospital visit by physician Seema Hartley APRN - [employer] Work Phone: [facility] Comment on above: Acute on chronic leigh creatitis (CMS/HCC) (HCC) Start: 06-20-2024 End: 06-20-2024 ambulatory [facility] Start: 06-19-2024 End: 06-20-2024 Emergency department patient visit Cory Adame DO Work Phone: [facility] ED Comment on above: Epigastric abdominal pain (Primary Dx); Chronic pancreatitis, unspecified pancreatitis type (HCC) Start: 06-18-2024 End: 06-18-2024 Emergency department patient visit [facility] Comment on above: Alcohol-induced operations examiner russ pancreatitis (CMS/HCC) (HCC) (Primary Dx) Start: 06-12-2024 End: 06-13-2024 Emergency department patient visit Donald Hill DO Work Phone: [facility] Comment on above: Abdominal pain, unsp ecified abdominal location (Primary Dx); Chronic pancreatitis, unspecified pancreatitis type (HCC) Start: 06-04-2024 End: 06-04-2024 Emergency department patient visit Josseline Weber MD Work Phone: [facility] Comment on above: Alcohol-induced operations examiner russ pancreatitis (CMS/HCC) (HCC) (Primary Dx); Pain of upper abdomen; Acute on chronic pancreatitis (CMS/HCC) (HCC) Start: 06-04-2024 End: 06-04-2024 Emergency department patient visit [facility] Start: 06-03-2024 End: 06-03-2024 ambulatory [facility] Start: 06-03-2024 End: 06-03-2024 Patient encounter procedure Mariely Cordon RN [facility] Start: 06-01-2024 End: 06-01-2024 Office outpatient visit 25 minutes Seema Hartley APRN - [employer] Work Phone: [facility] G[facility] Comment on above: Acute on chronic leigh creatitis (CMS/HCC) (HCC) (Primary Dx); History of alcohol abuse; Polysubstance use disorder Start: 06-01-2024 End: 06-01-2024 ambulatory TAM [facility] Start: 05-30-2024 End: 05-31-2024 Emergency department patient visit Mattie Durbin DO Work Phone: [facility] Emergency Dept Comment on above: Acute on chronic leigh creatitis (CMS/HCC) (HCC) (Primary Dx) Start: 05-22-2024 End: 05-22-2024 Emergency department patient visit TAM HUGHES [facility] ED Comment on above: Alcohol-induced operations examiner russ pancreatitis (CMS/HCC) (HCC) (Primary Dx); Abdominal pain, generalized Start: 05-21-2024 End: 05-21-2024 Telephone encounter Roma Mckenzie RN [facility]Y [facility] Start: 05-21-2024 End: 05-21-2024 Emergency department patient visit BALJINDER DUNLAP Facility:[place] Start: 05-14-2024 End: 05-16-2024 Telephone encounter Baljinder James RN [facility] Start: 05-07-2024 End: 05-07-2024 Emergency department patient visit Markie Lyons DO Work Phone: [facility] Emergency Dept Comment on above: Alcohol-induced acut e pancreatitis without infection or necrosis (Primary Dx) Start: 04-26-2024 End: 04-26-2024 Telephone encounter Roma Mckenzie RN [facility] EM[facility]Y [facility] Start: 04-21-2024 End: 04-23-2024 Telephone encounter Seema [facility] Clinical Communication Comment on above: Hospital Follow-up Start: 04-16-2024 End: 04-20-2024 Evaluation and management of inpatient Nancy Chávez Jerad DO Work Phone: [facility] Respiratory Unit 7W Comment on above: Acute recurrent panc reatitis (Primary Dx) Start: 04-04-2024 End: 04-06-2024 ambulatory PAULINO [facility] Start: 04-04-2024 End: 04-06-2024 Emergency department patient visit Enio Boyd DO Work Phone: [facility] Medical Surgical Unit MSU 4S Comment on above: Alcohol-induced acut e pancreatitis, unspecified complication status (Primary Dx); Alcohol withdrawal syndrome without complication (HCC); Pancreatitis, unspecified pancreatitis type Start: 03-30-2024 End: 03-30-2024 ambulatory TAM SAUL [facility] Start: 03-30-2024 End: 03-30-2024 Telemedicine consultation with patient Nikky Escobar MD Work Phone: [facility] [employer] [facility] Comment on above: Severe alcohol use d isorder (HCC); Major depressive disorder, recurrent episode, moderate (HCC); RODRIGUEZ (generalized anxiety disorder); Tourette syndrome Start: 03-29-2024 End: 03-31-2024 Telephone encounter Nikky Escobar MD Work Phone: [facility] [employer] [facility] Comment on above: Appointment Request Start: 03-22-2024 End: 03-22-2024 Emergency department patient visit TAM SAUL [facility] ED Comment on above: Pain of upper abdome n (Primary Dx); Transaminitis; Alcohol-induced chronic pancreatitis (CMS/HCC) (HCC); Alcohol use disorder Start: 02-20-2024 End: 02-20-2024 Telephone encounter Roma Mckenzie RN [facility] Start: 02-17-2024 End: 08-03-2024 Refill Nikky Escobar MD Work Phone: [facility] [employer] [facility] Start: 02-04-2024 End: 02-08-2024 Evaluation and management of inpatient Francisco Landa MD Work Phone: [facility] Detox Unit 4E Comment on above: Alcohol withdrawal s yndrome without complication (HCC) (Primary Dx) Start: 01-29-2024 End: 01-29-2024 Telephone encounter Roma Mckenzie RN [facility] EM[facility]ENCY [facility]PT Start: 01-20-2024 End: 01-26-2024 Evaluation and management of inpatient Calvin Stephens MD Work Phone: [facility] Medical Surgical Unit MSU H5 Comment on above: Alcohol-induced acut e pancreatitis, unspecified complication status (Primary Dx); Abdominal pain, generalized Start: 01-08-2024 End: 01-08-2024 Emergency department patient visit Gracy Del GONZALEZ Work Phone: [facility] ED Comment on above: Abdominal pain, epig astric (Primary Dx); Acute pancreatitis, unspecified complication status, unspecified pancreatitis type Start: 12-22-2023 End: 12-22-2023 Emergency department patient visit TAM HUGHES Facility:[place] Start: 12-13-2023 End: 12-17-2023 Evaluation and management of inpatient Idris Danielson MD Work Phone: [facility] Epilepsy Monitoring Unit 3N Comment on above: Alcoholic intoxicati on without complication (CMS/HCC) (HCC) (Primary Dx); Hematemesis of unknown etiology; Other depression Start: 11-30-2023 End: 12-01-2023 Telephone encounter Seema Sumner KNOTTER [facility] Clinical Communication Comment on above: Hospital Follow-up Start: 11-17-2023 End: 11-28-2023 Evaluation and management of inpatient J Lisset Jett MD Work Phone: [facility] Cardiac Progressive Care Unit PCU 2E Start: 11-04-2023 End: 11-04-2023 Telemedicine consultation with patient Nikky Escobar MD Work Phone: [employer] Comment on above: Severe alcohol use d isorder (HCC); Major depressive disorder, recurrent episode, moderate (HCC); RODRIGUEZ (generalized anxiety disorder); Tourette syndrome Start: 10-21-2023 End: 10-21-2023 Patient encounter procedure Nikky Escobar MD Work Phone: [employer] Comment on above: Severe opioid use di sorder (HCC); Severe alcohol use disorder (HCC); Other intermediate (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 Start: 10-16-2023 End: 10-18-2023 Evaluation and management of inpatient Francisco Zee MD Work Phone: [facility] Acuity Adaptable Unit AAU 2 Comment on above: Acute recurrent panc reatitis (Primary Dx) Start: 10-16-2023 End: 10-16-2023 Emergency department patient visit Idris Danielson MD Work Phone: [facility] Emergency Dept Comment on above: Alcohol-induced acut e pancreatitis, unspecified complication status (Primary Dx) Start: 10-14-2023 End: 10-14-2023 Patient encounter procedure Nikky Escobar MD Work Phone: [facility] [employer] Comment on above: Severe opioid use di sorder (HCC); Severe alcohol use disorder (HCC); Major depressive disorder, recurrent episode, moderate (HCC); RODRIGUEZ (generalized anxiety disorder); Tourette syndrome Start: 10-07-2023 End: 10-07-2023 Telephone encounter Nikky Escobar MD Work Phone: [facility] [employer] Comment on above: Appointment (Pt woul d like to reschedule the appointment that is scheduled for 10/07/2023 at 2:30 pm.) Start: 10-01-2023 End: 11-12-2023 Telephone encounter Nikky Escobar MD Work Phone: [facility] [employer] [facility] Comment on above: Medication Problem Start: 10-01-2023 End: 10-01-2023 Emergency department patient visit Bhupinder Boyd MD Work Phone: [facility] ED Comment on above: Alcohol-induced acut e pancreatitis, unspecified complication status (Primary Dx) Start: 09-23-2023 End: 09-23-2023 Office outpatient visit 15 minutes Nikky Escobar MD Work Phone: [facility] [employer] Comment on above: Severe opioid use di sorder (HCC); Motor tic disorder Start: 09-18-2023 End: 09-18-2023 ambulatory Sol Guo RN [facility] Clinical Communication Start: 09-18-2023 End: 09-18-2023 Patient encounter procedure Sol Guo RN [facility] Clinical Communication Start: 09-16-2023 End: 09-16-2023 Office outpatient visit 25 minutes Nikky Escobar MD Work Phone: [facility] [employer] Comment on above: Severe opioid use di sorder (HCC); Motor tic disorder; Major depressive disorder, recurrent episode, moderate (HCC); RODRIGUEZ (generalized anxiety disorder); Severe alcohol use disorder (HCC) Start: 09-09-2023 End: 09-09-2023 Patient encounter procedure Nikky Escobar MD Work Phone: [facility] [employer] [facility] Comment on above: Opioid withdrawal (H CC); Severe alcohol use disorder (HCC); Major depressive disorder, recurrent episode, moderate (HCC); RODRIGUEZ (generalized anxiety disorder); Motor tic disorder Start: 09-02-2023 End: 09-02-2023 Patient encounter procedure Nikky Escobar MD Work Phone: [facility] Comment on above: Severe opioid use di sorder (HCC); Major depressive disorder, recurrent episode, moderate (HCC); RODRIGUEZ (generalized anxiety disorder); Motor tic disorder Start: 08-26-2023 End: 08-26-2023 Telemedicine consultation with patient Nikky Escobar MD Work Phone: [facility] Comment on above: Anxiety; Palpitations; Opioid withdrawal (HCC) Start: 08-19-2023 End: 08-19-2023 Patient encounter procedure Nikky Escobar MD Work Phone: [facility] [place] Comment on above: Severe opioid use di sorder (HCC); Motor tic disorder; RODRIGUEZ (generalized anxiety disorder); Major depressive disorder, recurrent episode, moderate (HCC) Start: 08-10-2023 End: 08-15-2023 Evaluation and management of inpatient Jossy Lynn MD Work Phone: [facility] Detox Unit 4E Comment on above: Alcohol withdrawal s yndrome without complication (HCC) (Primary Dx); Transaminitis; Alcohol abuse; Opioid withdrawal (HCC); Tourette syndrome Start: 07-25-2023 End: 07-29-2023 Refill Thiago Hilton DO Work Phone: [facility] [employer] Comment on above: Opioid withdrawal (H CC) Start: 07-17-2023 Orders Only Thiago Hilton DO Work Phone: [facility] [employer] Comment on above: Opioid withdrawal (H CC) Start: 07-16-2023 Telephone encounter Thiago salinas DO Work Phone: [facility] [employer] [facility] Comment on above: Med Refill (07/16/23 Pt calling for a refill medication pt is scheduled for appt on 07.22.23 buprenorphine-naloxone (Suboxone) 8-2 MG per sublingual film [id number] - [place], [place] - [address]) Start: 06-24-2023 End: 06-28-2023 Evaluation and management of inpatient Jossy Lynn MD Work Phone: [facility] Cardiac Post Intervention Progressive Care Unit CPI PCU 4W Comment on above: Opioid withdrawal (H CC) (Primary Dx); Alcohol use disorder; Hypoxia; Transaminitis; Anxiety Start: 06-15-2023 Telephone encounter Thiago aslinas DO Work Phone: [facility] [employer] [facility] Comment on above: Appointment Request (/); Med Refill Start: 04-29-2023 End: 04-29-2023 Office outpatient visit 15 minutes Thiago M Lida [employer] Work Phone: [facility] Comment on above: Severe opioid use di sorder (HCC) Start: 03-18-2023 End: 03-18-2023 Office outpatient visit 15 minutes Thiago M Lida DO Work Phone: [facility] Comment on above: Severe opioid use di sorder (HCC) (Primary Dx); Palpitations Start: 03-01-2023 Refill Thiago Royal Hilton DO Work Phone: [facility] Comment on above: Opioid use disorder, severe, on maintenance therapy (HCC) (Primary Dx) Start: 01-08-2023 Orders Only Erin Arce MD Work Phone: [facility] Comment on above: Encounter for testin g for latent tuberculosis (Primary Dx) Start: 01-07-2023 End: 01-07-2023 Office outpatient new 60 minutes Erin Arce MD Work Phone: [facility] Comment on above: 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) Start: 12-10-2022 End: 12-10-2022 Office outpatient visit 15 minutes Thiago M Lida DO Work Phone: [facility] Comment on above: Gastroesophageal ref lux disease without esophagitis (Primary Dx); Anxiety; Alcohol-induced insomnia (CMS/HCC) (HCC); Severe opioid use disorder (HCC) Start: 11-20-2022 End: 11-20-2022 ambulatory [facility] Facility:[facility] Start: 11-15-2022 ambulatory [facility]uli[facility] Ford [facility] Start: 11-15-2022 Patient encounter procedure Yuliya Ford RN [facility] Start: 11-14-2022 Telephone encounter Thiago M Jese salinas DO Work Phone: [facility] [employer] [facility] Comment on above: Med Change Request Start: 11-12-2022 End: 11-12-2022 Office outpatient visit 15 minutes Thiago Hilton DO Work Phone: [facility] Comment on above: Severe opioid use di sorder (HCC) (Primary Dx); Alcohol-induced insomnia (CMS/HCC) (HCC); Mild intermittent asthma without complication; Anxiety; Tourette syndrome; Severe alcohol use disorder (HCC); Encounter for smoking cessation counseling; Nausea Start: 11-03-2022 End: 11-08-2022 Evaluation and management of inpatient Bhupinder Boyd MD Work Phone: [facility] 4E DETOX Comment on above: Alcohol withdrawal s yndrome without complication (HCC) (Primary Dx); Polysubstance abuse (CMS/HCC) (HCC); Opioid use disorder Start: 08-10-2022 End: 08-10-2022 Emergency department patient visit Guillermo Perales MD Work Phone: [facility] ED Comment on above: Sprain of left knee, initial encounter (Primary Dx); Closed head injury, initial encounter Start: 07-10-2022 End: 07-11-2022 Evaluation and management of inpatient Shaan Ortiz DO Work Phone: [facility] Emergency Dept Comment on above: Alcohol abuse (Prima ry Dx) Start: 06-12-2022 End: 06-12-2022 Emergency department patient visit Neetu Jiménez Work Phone: [facility] ED Comment on above: Acute gout of left f oot, unspecified cause (Primary Dx) Start: 05-25-2022 End: 05-25-2022 Emergency department patient visit Mary Hamlin MD Work Phone: [facility] EMERGENCY DEPT Comment on above: Anxiety (Primary Dx) Start: 05-23-2022 End: 05-24-2022 Emergency department patient visit Mary Hamlin MD Work Phone: [facility] ED Comment on above: Suicide attempt (HCC ) (Primary Dx) Start: 05-02-2022 End: 05-02-2022 Emergency department patient visit Neetu Jiménez Work Phone: [facility] ED Comment on above: Chest pain, unspecif ied type (Primary Dx); Anxiety attack Start: 03-15-2022 End: 03-19-2022 Evaluation and management of inpatient Josseline Weber MD Work Phone: [facility] 4E DETOX Comment on above: Alcohol withdrawal w ith inpatient treatment, uncomplicated (HCC) (Primary Dx) Start: 07-28-2019 End: 07-28-2019 Emergency department patient visit [facility] Comment on above: Dysuria (Primary Dx) Start: 06-06-2018 End: 06-08-2018 Evaluation and management of inpatient NEETU JIMÉNEZ [facility] Start: 06-02-2018 End: 06-03-2018 Patient encounter procedure PAOLA GALICIA [facility] Start: 03-29-2018 End: 03-30-2018 Evaluation and management of inpatient NEETU Chávez [facility] Start: 03-28-2018 End: 03-28-2018 Emergency department patient visit NEETU A [facility] Start: 03-13-2018 End: 03-13-2018 Emergency department patient visit NEETU Chávez [facility] Start: 10-27-2017 [facility] Start: 04-16-2017 End: 04-16-2017 Ambulatory [facility] Facility:[facility] Start: 10-03-2016 End: 10-04-2016 Ambulatory [facility] Facility:[facility] Procedures Date Procedure Procedure Detail Performing Clinician Start: 11-29-2024 Estimated creatinine clearance No Primary Care Physician Start: 11-29-2024 Methadone measuremen t, urine No Primary Care Physician Comment on above: If confirmation test ing is needed, a separate order will be required to send out testing to the reference laboratory. Start: 11-15-2024 extraction, erupted tooth or exposed root (elevation and/or forceps removal) Lauren Perez DDS Work Phone: Start: 11-15-2024 Follow-up visit AJAY OCHOA Start: 11-04-2024 End: 11-04-2024 Comprehensive metabolic panel Guillermo Mon PA-C Work Phone: Start: 11-04-2024 Hepatitis a antibody haab Guillermo Mon PA-C Work Phone: Start: 11-04-2024 AFP TUMOR MARKER Mone Mon PA-C Work Phone: Start: 11-01-2024 Follow-up visit AJAY OCHOA Start: 10-04-2024 Follow-up visit AJAY OCHOA Start: 10-04-2024 intraoral - periapic al each additional radiographic image Lauren Perez DDS Work Phone: Start: 10-04-2024 intraoral - periapic al first radiographic image Lauren Perez DDS Work Phone: Start: 2024 Assay of ferritin Spring Hartley CARDIOTHORACIC ICU RN - [employer] Work Phone: Start: 2024 Hepatitis b surf ant ibody hbsab Seema Hartley CARDIOTHORACIC ICU RN - [employer] Work Phone: Start: 2024 Iaad ia hepatitis b surface antigen Seema Hartley APRN - [employer] Work Phone: Start: 08-24-2024 extraction, erupted tooth or exposed root (elevation and/or forceps removal) Lauren Alla Bayron [employer] Work Phone: Start: 08-24-2024 Follow-up visit AJAY OCHOA Start: 08-24-2024 intraoral - periapic al first radiographic image Lauren K Bayron [employer] Work Phone: Start: 08-24-2024 panoramic radiograph ic image Lauren K Bayron [employer] Work Phone: Start: 08-23-2024 Follow-up visit AJAY SCHMITTT Start: 06-26-2024 Ct abdomen & pelvis w/contrast material Mattie Durbin DO Work Phone: Start: 06-26-2024 Basic metabolic pane l calcium total Mattie Durbin DO Work Phone: Start: 06-19-2024 Urnls dip stick/tabl et reagent auto microscopy Fahad Cates PA-C Work Phone: Start: 06-19-2024 Assay of troponin quantitative Cory Adame DO Work Phone: Start: 06-19-2024 Radiologic exam ches t single view Cory Adame DO Work Phone: Start: 06-19-2024 Comprehensive metabo lic panel Fahad DE LA ROSA-C Work Phone: Start: 06-19-2024 Ecg routine ecg w/le ast 12 lds trcg only w/o i&r Cory Adame DO Work Phone: Start: 06-18-2024 Comprehensive metabo lic panel Genie Pavon PA-C Work Phone: Start: 06-18-2024 Drug test def 1-7 classes Genie Crawford Librado PA-C Work Phone: Start: 06-12-2024 Ct abdomen & pelvis w/contrast material Donald Crawford Elisha DO Work Phone: Start: 06-12-2024 Comprehensive metabo lic panel Donald Crawford Elisha DO Work Phone: Start: 06-12-2024 Drug test def 1-7 classes Donald Crawford Elisha DO Work Phone: Start: 06-04-2024 Basic metabolic pane l calcium total Josseline Weber MD Work Phone: Start: 06-01-2024 Follow-up visit AJAY OCHOA Start: 05-30-2024 Ct abdomen & pelvis w/o contrast material Latoniatu Katty Gifty DO Work Phone: Start: 05-30-2024 Comprehensive metabo lic panel Mattie Alaniz Gifty DO Work Phone: Start: 05-30-2024 Urinalysis complete panel - Urine Mefederico Alaniz Gifty DO Work Phone: Start: 05-30-2024 Urnls dip stick/tabl et reagent auto microscopy Mattie Alaniz Gifty DO Work Phone: Start: 05-22-2024 Ct abdomen & pelvis w/contrast material Judith L Janas PA-C Work Phone: Start: 05-22-2024 Basic metabolic pane l calcium total Judith L Janas PA-C Work Phone: Start: 05-07-2024 Ct abdomen & pelvis w/o contrast material Markie A Gombash DO Work Phone: Start: 05-07-2024 Comprehensive metabo lic panel Markie A Gombash DO Work Phone: Start: 04-20-2024 Comprehensive metabo lic panel Nevaeh Howard DO Work Phone: Start: 04-19-2024 Comprehensive metabo lic panel Gokul Sood DO Work Phone: Start: 04-18-2024 Comprehensive metabo lic panel Gokul Sood DO Work Phone: Start: 04-17-2024 Comprehensive metabo lic panel Ant Carty MD Work Phone: Start: 04-16-2024 Assay of lactate Ant Carty MD Work Phone: Start: 04-16-2024 Ct abdomen & pelvis w/o contrast material Adrian Silva MD Work Phone: Start: 04-16-2024 Comprehensive metabo lic panel Adrian Silva MD Work Phone: Start: 04-16-2024 Drug test def 1-7 classes Adrian Silva MD Work Phone: Start: 04-16-2024 SARS-CoV-2 (COVID-19 ) Ag [Presence] in Respiratory specimen by Rapid immunoassay Adrian Silva MD Work Phone: Start: 04-06-2024 Comprehensive metabo lic panel Christopher Arias MD Work Phone: Start: 04-05-2024 Comprehensive metabo lic panel Christopher Arias MD Work Phone: Start: 04-04-2024 Assay of lactate Christopher Arias MD Work Phone: Start: 04-04-2024 Drug tst prsmv instr mnt chem analyzers pr date Paulino Shetlon MD Work Phone: Start: 04-04-2024 ETHYL GLUCURONIDE SC REEN, URINE Dov Vanegas MD Work Phone: Start: 04-04-2024 End: 04-04-2024 Prothrombin time Christopher Arias MD Work Phone: Start: 04-04-2024 End: 04-04-2024 Ecg routine ecg w/least 12 lds trcg only w/o i&r Christopher Arias MD Work Phone: Start: 04-04-2024 Urinalysis complete panel - Urine Eniojayro Boyd DO Work Phone: Start: 04-04-2024 Urnls dip stick/tabl et rgnt auto w/o microscopy Eniojayro Boyd DO Work Phone: Start: 04-04-2024 Ct abdomen & pelvis w/contrast material Eniojayro Boyd DO Work Phone: Start: 04-04-2024 Comprehensive metabo lic panel Enio Boyd DO Work Phone: Start: 04-04-2024 Drug test def 1-7 classes Dov Vanegas MD Work Phone: Start: 03-30-2024 Follow-up visit Follow-up NIKKY ESCOBAR Start: 03-22-2024 Comprehensive metabo lic panel Blayne Duran CARDIOTHORACIC ICU RN - [employer]ACHINE Work Phone: Start: 02-05-2024 Basic metabolic pane l calcium total Israel J Radha DO Work Phone: Start: 02-04-2024 Basic metabolic pane l calcium total eBatris Argueta PA-C Work Phone: Start: 02-04-2024 Blood gases any combination ph pco2 po2 co2 hco3 Beatris Argueta PA-C Work Phone: Start: 02-04-2024 Drug screen quantita tive alcohols Beatris Argueta PA-C Work Phone: Start: 02-04-2024 Blood gases any combination ph pco2 po2 co2 hco3 Beatris Argueta PA-C Work Phone: Start: 02-04-2024 Drug tst prsmv instr mnt chem analyzers pr date Beatris Argueta PA-C Work Phone: Start: 02-04-2024 Comprehensive metabo lic panel Beatris Argueta PA-C Work Phone: Start: 02-04-2024 Drug test def 1-7 classes Beatris Argueta PA-C Work Phone: Start: 02-04-2024 SARS-CoV-2 (COVID-19 ) Ag [Presence] in Respiratory specimen by Rapid immunoassay Beatris Argueta PA-C Work Phone: Start: 01-26-2024 Basic metabolic pane l calcium total Donald Julian DO Work Phone: Start: 01-21-2024 ETHYL GLUCURONIDE SC REEN, URINE Britney Spencehoa CARDIOTHORACIC ICU RN - [employer]ACHINE Work Phone: Start: 01-21-2024 MEDICATION ASSISTED TREATMENT PANEL Britney Spencehoa CARDIOTHORACIC ICU RN - [employer]ACHINE Work Phone: Start: 01-21-2024 Basic metabolic pane l calcium total Latonya Larose MD Work Phone: Start: 01-21-2024 Drug test def 1-7 classes Britney Spencehoa CARDIOTHORACIC ICU RN - [employer]INE Work Phone: Start: 01-20-2024 Ct abdomen & pelvis w/contrast material Kev Carballo PA-C Work Phone: Start: 01-20-2024 Urinalysis complete panel - Urine Kev Carballo PA-C Work Phone: Start: 01-20-2024 Urnls dip stick/tabl et reagent auto microscopy Kev Carballo PA-C Work Phone: Start: 01-20-2024 Comprehensive metabo lic panel Kev Carballo PA-C Work Phone: Start: 01-08-2024 Comprehensive metabo lic panel Gracy Dyer DO Work Phone: Start: 01-08-2024 Ecg routine ecg w/le ast 12 lds trcg only w/o i&r Gracy Dyer DO Work Phone: Start: 12-16-2023 Blood count hematocrit Maxwell Esposito MD Work Phone: Start: 12-16-2023 Hepatic function panel Maxwell Esposito MD Work Phone: Start: 12-15-2023 Comprehensive metabo lic panel Maxwell Esposito MD Work Phone: Start: 12-14-2023 Blood count hematocrit Maxwell Esposito MD Work Phone: Start: 12-14-2023 Level iv surg pathol ogy gross&microscopic exam Hari Kline MD Work Phone: Start: 12-14-2023 End: 12-14-2023 Egd transoral biopsy single/multiple Hari Kline MD Work Phone: Start: 12-14-2023 Radiologic exam ches t single view Maxwell Esposito MD Work Phone: Start: 12-13-2023 Basic metabolic pane l calcium total Mejgon Z Gifty DO Work Phone: Start: 12-13-2023 Ecg routine ecg w/le ast 12 lds trcg only w/o i&r Idris Danielson MD Work Phone: Start: 12-13-2023 End: 12-13-2023 Comprehensive metabolic panel Idris Danielson MD Work Phone: Start: 12-13-2023 End: 12-13-2023 Drug test def 1-7 classes Idris robles MD Work Phone: Start: 12-13-2023 Urnls dip stick/tabl et reagent auto microscopy Tania Payne DO Work Phone: Start: 12-13-2023 Manual differential performed [Presence] in Blood Idris Danielson MD Work Phone: Start: 12-13-2023 SARS-CoV-2 (COVID-19 ) Ag [Presence] in Respiratory specimen by Rapid immunoassay Idris Danielson MD Work Phone: Start: 11-28-2023 Bilirubin direct Akbar Babin MD Work Phone: Start: 11-28-2023 Comprehensive metabo lic panel Linda Kohler MD Work Phone: Start: 11-28-2023 Hepatic function panel Akbar Prajapati MD Work Phone: Start: 11-27-2023 Comprehensive metabo lic panel Linda Kohler MD Work Phone: Start: 11-27-2023 Hepatic function panel Akbar Prajapati MD Work Phone: Start: 11-26-2023 Dup-scan xtr veins unilateral/limited study Akbar Prajapati MD Work Phone: Start: 11-26-2023 Comprehensive metabo lic panel Linda Kohler MD Work Phone: Start: 11-26-2023 Manual Differential panel - Blood Linda Kohler MD Work Phone: Start: 11-25-2023 Comprehensive metabo lic panel Linda Kohler MD Work Phone: Start: 11-25-2023 Manual differential performed [Presence] in Blood Linda Kohler MD Work Phone: Start: 11-24-2023 Us abdominal real ti me w/image limited Akbar Prajapati MD Work Phone: Start: 11-24-2023 Comprehensive metabo lic panel Linda Kohler MD Work Phone: Start: 11-24-2023 Manual differential performed [Presence] in Blood Linda Kohler MD Work Phone: Start: 11-23-2023 Acute hepatitis panel C karol Kohler MD Work Phone: Start: 11-23-2023 Comprehensive metabo lic panel Linda Kohler MD Work Phone: Start: 11-23-2023 Manual Differential panel - Blood Linda Kohler MD Work Phone: Start: 11-22-2023 Ct abdomen & pelvis w/o contrast material Blayne Allen MD Work Phone: Start: 11-22-2023 Comprehensive metabo lic panel Linda Kohler MD Work Phone: Start: 11-21-2023 Echo tthrc r-t 2d w/wom-mode compl spec&colr d Linda Kohler MD Work Phone: Start: 11-21-2023 Comprehensive metabo lic panel Linda Kohler MD Work Phone: Start: 11-20-2023 Ct angiography chest w/contrast/noncontrast Linda Kohler MD Work Phone: Start: 11-20-2023 Assay of lipase Linda Kohler MD Work Phone: Start: 11-20-2023 Manual differential performed [Presence] in Blood Linda Kohler MD Work Phone: Start: 11-19-2023 Comprehensive metabo lic panel Dov Vanegas MD Work Phone: Start: 11-19-2023 Radiologic exam ches t 2 views Linda Kohler MD Work Phone: Start: 11-18-2023 Comprehensive metabo lic panel Blayne Allen MD Work Phone: Start: 11-18-2023 Drug test def 1-7 classes Dov Vanegas MD Work Phone: Start: 11-18-2023 Urinalysis complete panel - Urine Yvette Jett MD Work Phone: Start: 11-18-2023 Urnls dip stick/tabl et reagent auto microscopy Yvette Jett MD Work Phone: Start: 11-18-2023 Ct abdomen & pelvis w/contrast material Yvette Jett MD Work Phone: Start: 11-18-2023 SARS-CoV-2 (COVID-19 ) Ag [Presence] in Respiratory specimen by Rapid immunoassay Yvette Jett MD Work Phone: Start: 11-17-2023 Comprehensive metabo lic panel Yvette Jett MD Work Phone: Start: 11-17-2023 Drug test def 1-7 classes J Lisset Jett MD Work Phone: Start: 10-22-2023 Lipid 1996 panel - S radha or Plasma Nikky Escobar MD Work Phone: Start: 10-21-2023 MEDICATION ASSISTED TREATMENT PANEL Nikky Escobar MD Work Phone: Start: 10-17-2023 Assay of triglycerides Steph Castano MD Work Phone: Start: 10-16-2023 Comprehensive metabo lic panel Francisco Zee MD Work Phone: Start: 10-16-2023 Us abdominal real ti me w/image limited Francisco Zee MD Work Phone: Start: 10-16-2023 Ecg routine ecg w/le ast 12 lds trcg only w/o i&r Idris Danielson MD Work Phone: Start: 10-16-2023 Comprehensive metabo lic panel Idris Danielson MD Work Phone: Start: 10-16-2023 EXTRA TUBES Idris Danielson MD Work Phone: Start: 10-16-2023 LIGHT BLUE TOP Idris Danielson MD Work Phone: Start: 10-14-2023 MEDICATION ASSISTED TREATMENT PANEL Nikky Escobar MD Work Phone: Start: 2023 Urinalysis complete panel - Urine Bhupinder Boyd MD Work Phone: Start: 2023 Urnls dip stick/tabl et reagent auto microscopy Bhupinder Boyd MD Work Phone: Start: 2023 Comprehensive metabo lic panel Bhupinder Boyd MD Work Phone: Start: 09-23-2023 MEDICATION ASSISTED TREATMENT PANEL Nikky Escobar MD Work Phone: Start: 08-19-2023 MEDICATION ASSISTED TREATMENT PANEL Nikky Escobar MD Work Phone: Start: 08-11-2023 BUPRENORPHINE SCREEN Kelsey Orta MD Work Phone: Start: 08-11-2023 Drug tst prsmv instr mnt chem analyzers pr date Tana DE LA ROSA-C Work Phone: Start: 08-11-2023 Urinalysis complete panel - Urine Tana DE LA ROSA-Intrinsic-ID Work Phone: Start: 08-11-2023 Urnls dip stick/tabl et rgnt auto w/o microscopy Tana Christensen PA-C Work Phone: Start: 08-10-2023 Blood gases any combination ph pco2 po2 co2 hco3 Kev Tinojeremiah DE LA ROSA-Intrinsic-ID Work Phone: Start: 08-10-2023 SARS-CoV-2 (COVID-19 ) Ag [Presence] in Respiratory specimen by Rapid immunoassay Tana DE LA ROSA-Intrinsic-ID Work Phone: Start: 08-10-2023 Comprehensive metabo lic panel Tana DE LA ROSA-C Work Phone: Start: 08-10-2023 Drug test def 1-7 classes Tana DE LA ROSA-Xavier Work Phone: Start: 08-10-2023 Manual Differential panel - Blood Tana DE LA ROSA-C Work Phone: Start: 06-28-2023 Comprehensive metabo lic panel Clementine Carvajalgee Lay DO Work Phone: Start: 06-27-2023 Comprehensive metabo lic panel Clementineantoinette CarvajalZhane Alireza DO Work Phone: Start: 06-26-2023 Comprehensive metabo lic panel Clementineantoinette CarvajalZhane Alireza DO Work Phone: Start: 06-25-2023 Comprehensive metabo lic panel Clementine Carvajalgee Lay DO Work Phone: Start: 06-24-2023 Hepatitis c antibody Al savannahakash Zhane Lay DO Work Phone: Start: 06-24-2023 Iaad ia hiv-1 ag w/h iv-1 & hiv-2 antbdy single Clementine Lay DO Work Phone: Start: 06-24-2023 Prothrombin time Alise Lay DO Work Phone: Start: 06-24-2023 VOLATILE PANEL,SERUM Al delmis Lay DO Work Phone: Start: 06-24-2023 BUPRENORPHINE SCREEN Ri ryanne Perea CARDIOTHORACIC ICU RN - [employer]ACHINE Work Phone: Start: 06-24-2023 SARS-CoV-2 (COVID-19 ) Ag [Presence] in Respiratory specimen by Rapid immunoassay Tana DE LA ROSA-C Work Phone: Start: 06-24-2023 Comprehensive metabo lic panel Tana DE LA ROSA-C Work Phone: Start: 06-24-2023 End: 06-24-2023 Drug screen analgesics non-opioid 1 or 2 Clementine Lay DO Work Phone: Start: 03-18-2023 MEDICATION ASSISTED TREATMENT PANEL Thiago Hilton DO Work Phone: Start: 01-07-2023 QUANTIFERON - PLUS G RAY TUBE Erinkai Arce MD Work Phone: Start: 01-07-2023 QUANTIFERON - PLUS G REEN TUBE Erin J Yazmin JUSTICE Work Phone: Start: 01-07-2023 QUANTIFERON - PLUS P URPLE TUBE Erinkai Arce MD Work Phone: Start: 01-07-2023 QUANTIFERON - PLUS Y ELLOW TUBE Erin J Yazmin JUSTICE Work Phone: Start: 01-07-2023 QUANTIFERON TB GOLD Den ise Yvette Arce MD Work Phone: Start: 12-16-2022 Ct angiography chest w/contrast/noncontrast Duong Milian MD Work Phone: Start: 12-16-2022 Basic metabolic pane l calcium total Duong Milian MD Work Phone: Start: 12-16-2022 Radiologic exam ches t single view Duong Milian MD Work Phone: Start: 11-12-2022 MEDICATION ASSISTED TREATMENT PANEL Thiago Hilton DO Work Phone: Start: 11-07-2022 Iaad ia hiv-1 ag w/h iv-1 & hiv-2 antbdy single Thiago Hitlon DO Work Phone: Start: 11-04-2022 Drug test def 1-7 classes Kev Carballo PA-C Work Phone: Start: 11-03-2022 SARS-CoV-2 (COVID-19 ) Ag [Presence] in Respiratory specimen by Rapid immunoassay Kev Carballo PA-C Work Phone: Start: 11-03-2022 Comprehensive metabo lic panel Kev Carballo PA-C Work Phone: Start: 11-03-2022 Drug test def 1-7 classes Kev Carballo PA-C Work Phone: Start: 08-10-2022 Ct head/brain w/o co ntrast material Guillermo Perales MD Work Phone: Start: 08-10-2022 Ct cervical spine w/ o contrast material Guillermo Perales MD Work Phone: Start: 08-10-2022 End: 08-10-2022 Radex shoulder complete minimum 2 views Guillermo Perales MD Work Phone: Start: 08-10-2022 Radiologic exam ches t single view Guillermo Perales MD Work Phone: Start: 07-11-2022 SARS-COV-2, FLU A/B, AND RSV COMBO Shaan Ortiz DO Work Phone: Start: 07-10-2022 Urinalysis complete panel - Urine Shaan Ortiz DO Work Phone: Start: 07-10-2022 Urnls dip stick/tabl et rgnt auto w/o microscopy Shaan Voll DO Work Phone: Start: 07-10-2022 Ecg routine ecg w/le ast 12 lds trcg only w/o i&r Shaan Voll DO Work Phone: Start: 07-10-2022 Comprehensive metabo lic panel Shaan Voll DO Work Phone: Start: 07-10-2022 End: 07-10-2022 Drug test def 1-7 classes Shaan Voll D O Work Phone: Start: 05-25-2022 Comprehensive metabo lic panel Mary Hamlin MD Work Phone: Start: 05-24-2022 Ecg routine ecg w/le ast 12 lds trcg only w/o i&r Duong Milian MD Work Phone: Start: 05-24-2022 Drug tst prsmv instr mnt chem analyzers pr date Mary Hamlin MD Work Phone: Start: 05-24-2022 Urnls dip stick/tabl et rgnt auto w/o microscopy Mary Hamlin MD Work Phone: Start: 05-24-2022 SARS-CoV-2 (COVID-19 ) Ag [Presence] in Respiratory specimen by Rapid immunoassay Mary Hamlin MD Work Phone: Start: 05-23-2022 End: 05-23-2022 Comprehensive metabolic panel Mary Hamlin MD Work Phone: Start: 05-23-2022 Drug screen analgesi cs non-opioid 1 or 2 Mary Hamlin MD Work Phone: Start: 05-02-2022 Basic metabolic pane l calcium total Blayne Duran CARDIOTHORACIC ICU RN - [employer]ACHINE Work Phone: Start: 05-02-2022 Radiologic exam ches t 2 views Blayne Duran CARDIOTHORACIC ICU RN - [employer]ACHINE Work Phone: Start: 05-02-2022 Ecg routine ecg w/le ast 12 lds trcg only w/o i&r Blayne Duran CARDIOTHORACIC ICU RN - [employer]ACHINE Work Phone: Start: 03-18-2022 Comprehensive metabo lic panel Vinay Pacheco MD Work Phone: Start: 03-15-2022 Ecg routine ecg w/le ast 12 lds trcg only w/o i&r Beatris DE LA ROSA Work Phone: Start: 03-15-2022 Drug tst prsmv instr mnt chem analyzers pr date Beatris DE LA ROSA Work Phone: Start: 03-15-2022 SARS-CoV-2 (COVID-19 ) Ag [Presence] in Respiratory specimen by Rapid immunoassay Beatris DE LA ROSA Work Phone: Start: 03-15-2022 Comprehensive metabo lic panel Beatris DE LA ROSA Work Phone: Start: 03-15-2022 Drug test def 1-7 classes Beatris DE LA ROSA Work Phone: Start: 07-28-2019 Urnls dip stick/tabl et rgnt auto w/o microscopy Judith Valles Work Phone: Start: 06-08-2018 DISCHARGE PATIENT NEETU JIMÉNEZ Start: 06-08-2018 DIET GENERAL NEETU Alaniz Start: 06-08-2018 INITIATE OXYGEN THER APY PROTOCOL NEETU JIMÉNEZ Start: 06-08-2018 Assay of lipase NEETU LEYVA Start: 06-08-2018 INTAKE AND OUTPUT NEETU JMIÉNEZ Start: 06-07-2018 INITIATE OXYGEN THER APY PROTOCOL NEETU JIMÉNEZ Start: 06-07-2018 Assay of lipase NEETU LEYVA Start: 06-07-2018 Blood count complete auto&auto difrntl wbc NEETU JIMÉNEZ Start: 06-07-2018 Blood count complete automated NEETU JIMÉNEZ Start: 06-07-2018 Lipid panel NEETU Alaniz Start: 06-07-2018 INTAKE AND OUTPUT NEETU JIMÉNEZ Start: 06-06-2018 FULL CODE NEETU Alaniz Start: 06-06-2018 INITIATE OXYGEN THER APY PROTOCOL NEETU JIMÉNEZ Start: 06-06-2018 INTAKE AND OUTPUT NEETU JIMÉNEZ Start: 06-06-2018 IP CONSULT TO SOCIAL WORK NEETU CARVAJALRUBIO Start: 06-06-2018 REASON FOR NO MECHAN ICAL VTE PROPHYLAXIS NEETU CARVAJALRUBIO Start: 06-06-2018 TOBACCO CESSATION EDUCATION NEETU CARVAJALRUBIO Start: 06-06-2018 VITAL SIGNS NEETU Alaniz Start: 06-06-2018 Prothrombin time NEETU CARVAJALRUBIO Start: 06-06-2018 NOTIFY PHYSICIAN (SPECIFY) NEETU TINO Start: 06-06-2018 PLACE INTERMITTENT PNEUMATIC COMPRESSION DEVICE NEETUNARCISO CARVAJALRUBIO Start: 06-06-2018 REASON FOR NO CHEMIC AL VTE PROPHYLAXIS NEETU CARVAJALRUBIO Start: 06-06-2018 VITAL SIGNS NEETU Alaniz Start: 06-06-2018 PATIENT STATUS (FROM ED OR OR/PROCEDURAL) NEETU TINO Start: 06-06-2018 IP CONSULT TO EXHAUSTER ENGINEER AL MEDICINE NEETU TINO Start: 06-06-2018 Ct abdomen & pelvis w/contrast material NEETU TINO Start: 06-06-2018 Assay of lactate NEETU TINO Start: 06-06-2018 Assay of lipase NEETU Apollo LEYVA Start: 06-06-2018 Blood count complete auto&auto difrntl wbc NEETUNARCISO CARVAJALRUBIO Start: 06-06-2018 Comprehensive metabo lic panel NEETU TINO Start: 06-06-2018 Lactate dehydrogenase ldh NEETU TINO Start: 03-30-2018 RADIOLOGY REPORT NEETU TINO Start: 03-30-2018 DISCHARGE PATIENT NEETU CARVAJALRUBIO Start: 03-30-2018 DIET LOW FIBER NEETUNARCISO CARREON Start: 03-30-2018 LAB SCANNED REPORT YINKA Blas TINO Start: 03-30-2018 Blood count complete auto&auto difrntl wbc NEETU TINO Start: 03-30-2018 Comprehensive metabo lic panel NEETU TINO Start: 03-29-2018 IP CONSULT TO PSYCHIATRY NEETU TINO Start: 03-29-2018 Us abdominal real ti me w/image limited NEETU TINO Start: 03-29-2018 FULL CODE NEETU EULOGIO Alaniz Start: 03-29-2018 PATIENT STATUS (FROM ED OR OR/PROCEDURAL) NEETU TINO Start: 03-29-2018 Ct abdomen & pelvis w/contrast material NEETU TINO Start: 03-29-2018 POCT VENOUS NEETUNARCISO CARVAJALDharmesh Alaniz Start: 03-29-2018 Assay of lactate NEETU TINO Start: 03-29-2018 Assay of lipase NEETU LEYVA Start: 03-29-2018 Assay of magnesium YINKA JIMÉNEZ Start: 03-29-2018 Assay of phosphorus inorganic NEETU JIMÉNEZ Start: 03-29-2018 Blood count complete auto&auto difrntl wbc NEETU JIMÉNEZ Start: 03-29-2018 Comprehensive metabo lic panel NEETU JIMÉNEZ Start: 03-29-2018 Lipid panel NEETU Alaniz Start: 03-29-2018 POCT CHEM 8 NEETU Alaniz Start: 03-28-2018 Assay of lipase NEETU LEYVA Start: 03-28-2018 Blood count complete auto&auto difrntl wbc NEETU JIMÉNEZ Start: 03-28-2018 Urnls dip stick/tabl et rgnt auto w/o microscopy NEETU JIMÉNEZ Start: 03-13-2018 Radex spine lumbosac ral 2/3 views NEETU JIMÉNEZ Plan of Treatment Date Care Activity Detail Author Start: 2061 RSV Immunization for Adults (1 - 1-dose 75+ series) RSV Immunization for Adults (1 - 1-dose 75+ series) [facility] Start: 2046 RSV Immunization aged 60 or older (1 - 1-dose 60+ series) RSV Immunization aged 60 or older (1 - 1-dose 60+ series) [facility] Start: 2046 [facility] Start: 2036 Zoster Vaccines (1 of 2) Zoster Vaccines (1 of 2) [facility] Start: 2036 [facility] Start: 08-10-2032 DTaP/Tdap/Td Vaccines (3 - Td or Tdap) DTaP/Tdap/Td Vaccines (3 - Td or Tdap) [facility] Start: 08-10-2032 [facility] Start: 10-21-2028 Lipid panel [facility] Start: 04-07-2025 Dental Oral Exam Dental Oral Exam [facility] Start: 01-19-2025 End: 01-19-2025 Patient encounter procedure 01/19/2025 2:00 PM EST Office Visit [facility] [address] [place] [phone] James Mcneill, MAURO [address] [place] [address] [facility] Start: 12-14-2024 End: 12-14-2024 Patient encounter procedure 12/14/2024 1:00 PM EST Office Visit [facility] [address] [place] [phone] Lauren Perez, DDS [address] [place] [address] [facility] Start: 12-08-2024 End: 12-08-2024 Admission to same day surgery center 12/08/2024 1:15 PM EDT - 12/08/2024 1:45 PM EDT [facility] [address] [place] [phone] Sonya Cramer MD [address] [place] [address] ESOPHAGOGASTRODUODENOSCO PY, WITH BIOPSY [81580 (CPT )] [facility] Comment on above: ESOPHAGOGASTRODUODENOSCOPY, WITH BIOPSY [47078 (CPT )] Start: 12-08-2024 Subsequent hospital visit by physician 12/08/2024 1:15 PM EDT Hospital Encounter [facility] [address] [place] [phone] Sonya Cramer MD [address] [place] [address] [facility] Start: 12-08-2024 End: 12-08-2024 Egd transoral biopsy single/multiple [facility] Start: 12-01-2024 Patient discharge [facility] Start: 11-30-2024 Following clinical pathway protocol [facility] Start: 11-30-2024 Admission procedure [facility] Start: 11-30-2024 Patient referral to dietitian [facility] Start: 11-30-2024 [facility] Start: 11-21-2024 End: 11-21-2024 Patient encounter procedure 11/21/2024 2:30 PM EDT Office Visit [facility] [address] [place] [phone] Guillermo Mon PA-C [address] [address] [facility] Start: 11-15-2024 End: 11-15-2024 Patient encounter procedure [facility] Start: 11-10-2024 End: 11-10-2025 Hepatitis A virus IgM Ab [Presence] in Serum or Plasma by Immunoassay Hepatitis A antibody, IgM Lab Routine Elevated liver enzymes Expected: 11/10/2024 (Approximate), Expires: 11/10/2025 [facility] Work Phone: Comment on above: Expected: 11/10/2024 (Approximate), Expi res: 11/10/2025 Start: 11-01-2024 End: 11-01-2025 AFP Tumor Marker AFP Tumor Marker Lab Routine Alcoholic cirrhosis of liver without ascites (CMS/HCC) (HCC) Expected: 11/01/2024 (Approximate), Expires: 11/01/2025 [facility] Work Phone: Comment on above: Expected: 11/01/2024 (Approximate), Expi res: 11/01/2025 Start: 11-01-2024 End: 11-01-2025 Ceruloplasmin Ceruloplasmin Lab Routine Elevated liver enzymes Expected: 11/01/2024 (Approximate), Expires: 11/01/2025 [facility] Comment on above: Expected: 11/01/2024 (Approximate), Expi res: 11/01/2025 Start: 11-01-2024 End: 11-01-2025 Comprehensive metabolic 1998 panel - Serum or Plasma Comprehensive metabolic panel Lab Routine Alcoholic cirrhosis of liver without ascites (CMS/HCC) (HCC) Expected: 11/01/2024 (Approximate), Expires: 11/01/2025 [facility] Comment on above: Expected: 11/01/2024 (Approximate), Expi res: 11/01/2025 Start: 11-01-2024 End: 11-01-2025 Hepatitis A Antibody, Total Hepatitis A Antibody, Total Lab Routine Alcoholic cirrhosis of liver without ascites (CMS/HCC) (HCC) Expected: 11/01/2024 (Approximate), Expires: 11/01/2025 [facility] Comment on above: Expected: 11/01/2024 (Approximate), Expi res: 11/01/2025 Start: 11-01-2024 End: 11-01-2025 Prothrombin time (PT) in Blood by Coagulation assay Protime-INR Lab Routine Alcoholic cirrhosis of liver without ascites (CMS/HCC) (HCC) Expected: 11/01/2024 (Approximate), Expires: 11/01/2025 [facility] Comment on above: Expected: 11/01/2024 (Approximate), Expi res: 11/01/2025 Start: 11-01-2024 End: 11-01-2024 Patient encounter procedure 11/01/2024 9:00 AM EDT Office Visit [facility] [address] [place] [phone] Guillermo Mon PA-C [address] [place] [address] [phone] [facility] Start: 10-10-2024 COVID-19 Vaccine ( season) COVID-19 Vaccine ( season) [facility] Start: 10-10-2024 Influenza vaccination [facility] Start: 10-05-2024 End: 10-05-2024 Patient encounter procedure 10/05/2024 2:00 PM EDT Office Visit [facility] [address] [place] [phone] Seema Hartley, CARDIOTHORACIC ICU RN - COREM[employer]ER MACHINE [address] [facility] [address] [place] [address] [phone] [facility] Start: 10-04-2024 End: 10-04-2024 Patient encounter procedure 10/04/2024 4:00 PM EDT Office Visit [facility] [address] [place] [phone] Lauren Peerz, DDS [address] [place] [address] [facility] [place] Start: 10-03-2024 End: 10-03-2025 Comprehensive metabolic 1998 panel - Serum or Plasma Comprehensive metabolic panel Lab Routine Elevated liver enzymes Expected: 10/03/2024 (Approximate), Expires: 10/03/2025 [facility] Work Phone: Comment on above: Expected: 10/03/2024 (Approximate), Expi res: 10/03/2025 Start: 09-22-2024 End: 09-22-2024 Clinical Support 09/22/2024 2:30 PM EDT Clinical Support [facility] [place] [address] [place] [phone] [facility] [place] Start: 09-07-2024 End: 09-07-2024 Patient encounter procedure 09/07/2024 2:00 PM EDT Office Visit [facility] [address] [place] [phone] Lauren Perez, DDS [address] [place] [address] [facility] Start: 08-24-2024 End: 08-24-2024 Patient encounter procedure [facility] Start: 08-23-2024 End: 08-23-2025 [id number]-6-[id number], Quantitative Msvaz-7-Pmsncrdfofq, Quantitative Lab Routine Elevated liver enzymes Expected: 08/23/2024 (Approximate), Expires: 08/23/2025 [facility] Comment on above: Expected: 08/23/2024 (Approximate), Expi res: 08/23/2025 Start: 08-23-2024 End: 08-23-2025 Antimitochondrial antibody Antimitochondrial antibody Lab Routine Elevated liver enzymes Expected: 08/23/2024 (Approximate), Expires: 08/23/2025 [facility] Work Phone: Comment on above: Expected: 08/23/2024 (Approximate), Expi res: 08/23/2025 Start: 08-23-2024 End: 08-23-2025 CELIAC PANEL Celiac Panel Lab Routine Elevated liver enzymes Expected: 08/23/2024 (Approximate), Expires: 08/23/2025 [facility] Comment on above: Expected: 08/23/2024 (Approximate), Expi res: 08/23/2025 Start: 08-23-2024 End: 08-23-2025 Ferritin [Mass/volume] in Serum or Plasma Ferritin Lab Routine Elevated liver enzymes Expected: 08/23/2024 (Approximate), Expires: 08/23/2025 [facility] Comment on above: Expected: 08/23/2024 (Approximate), Expi res: 08/23/2025 Start: 08-23-2024 End: 08-23-2025 Hepatitis B Core Antibody, Total Hepatitis B Core Antibody, Total Lab Routine Elevated liver enzymes Expected: 08/23/2024 (Approximate), Expires: 08/23/2025 [facility] Comment on above: Expected: 08/23/2024 (Approximate), Expi res: 08/23/2025 Start: 08-23-2024 End: 08-23-2025 Hepatitis B virus surface Ab [Units/volume] in Serum or Plasma by Immunoassay Hepatitis B surface antibody Lab Routine Elevated liver enzymes Expected: 08/23/2024 (Approximate), Expires: 08/23/2025 [facility] Comment on above: Expected: 08/23/2024 (Approximate), Expi res: 08/23/2025 Start: 08-23-2024 End: 08-23-2025 Hepatitis B virus surface Ag [Presence] in Serum or Plasma by Immunoassay Hepatitis B surface antigen Lab Routine Elevated liver enzymes Expected: 08/23/2024 (Approximate), Expires: 08/23/2025 [facility] Comment on above: Expected: 08/23/2024 (Approximate), Expi res: 08/23/2025 Start: 08-23-2024 End: 08-23-2025 Hepatitis C virus Ab [Presence] in Serum or Plasma by Immunoassay Hepatitis C antibody Lab Routine Elevated liver enzymes Expected: 08/23/2024 (Approximate), Expires: 08/23/2025 [facility] Comment on above: Expected: 08/23/2024 (Approximate), Expi res: 08/23/2025 Start: 08-23-2024 End: 08-23-2025 Liver elastography w/o imag w/i&r Fibroscan Procedures Routine Elevated liver enzymes Expected: 08/23/2024, Expires: 08/23/2025 [facility] Comment on above: Expected: 08/23/2024, Expires: Start: 08-23-2024 End: 08-23-2025 Liver-Kidney Microsome 1 Ab Liver-Kidney Microsome 1 Ab Lab Routine Elevated liver enzymes Expected: 08/23/2024 (Approximate), Expires: 08/23/2025 [facility] Comment on above: Expected: 08/23/2024 (Approximate), Expi res: 08/23/2025 Start: 08-23-2024 End: 08-23-2025 Nuclear Ab [Titer] in Serum by Immunofluorescence [facility] Lab Routine Elevated liver enzymes Expected: 08/23/2024 (Approximate), Expires: 08/23/2025 [facility] Comment on above: Expected: 08/23/2024 (Approximate), Expi res: 08/23/2025 Start: 08-23-2024 End: 08-23-2025 Prothrombin time (PT) in Blood by Coagulation assay Protime-INR Lab Routine Elevated liver enzymes Expected: 08/23/2024 (Approximate), Expires: 08/23/2025 [facility] Comment on above: Expected: 08/23/2024 (Approximate), Expi res: 08/23/2025 Start: 08-23-2024 End: 08-23-2025 Smooth muscle antibody with reflex Titer Smooth muscle antibody with reflex Titer Lab Routine Elevated liver enzymes Expected: 08/23/2024 (Approximate), Expires: 08/23/2025 [facility] Comment on above: Expected: 08/23/2024 (Approximate), Expi res: 08/23/2025 Start: 08-09-2024 End: 08-09-2024 Patient encounter procedure 08/09/2024 10:30 AM EDT Office Visit [facility] [address] [place] [phone] [facility] Start: 08-05-2024 Depression Monitoring Depression Monitoring [facility] Start: 07-25-2024 End: 07-25-2024 Patient encounter procedure 07/25/2024 2:30 PM EDT Office Visit [facility] [place] [address] [place] [address] Seema Hartley, CARDIOTHORACIC ICU RN - COREM[employer]ER MACHINE [address] [place] [address] [facility] [place] Start: 06-24-2024 Diabetes mellitus screening [facility] Start: 06-20-2024 End: 06-20-2024 Patient encounter procedure 06/20/2024 1:[address] [facility] [address] [place] [phone] Seema Hartley, CARDIOTHORACIC ICU RN - COREMAKER MACHINE [address] [place] [address] [facility] Start: 06-20-2024 Subsequent hospital visit by physician 06/20/2024 1:45 PM EDT Hospital Encounter [facility] [address] [place] [address] Seema Hartley, CARDIOTHORACIC ICU RN - COREMAKER MACHINE [address] [place] [address] [facility] Start: 06-12-2024 Depression Monitoring Depression Monitoring [facility] Start: 06-01-2024 End: 06-01-2025 Calcium [Mass/volume] in Serum or Plasma Calcium Lab Routine Acute on chronic pancreatitis (CMS/HCC) (HCC) Expected: 06/01/2024 (Approximate), Expires: 06/01/2025 [facility] Comment on above: Expected: 06/01/2024 (Approximate), Expi res: 06/01/2025 Start: 06-01-2024 End: 06-01-2025 IgG 4 IgG 4 Lab Routine Acute on chronic pancreatitis (CMS/HCC) (HCC) Expected: 06/01/2024 (Approximate), Expires: 06/01/2025 [facility] Work Phone: Comment on above: Expected: 06/01/2024 (Approximate), Expi res: 06/01/2025 Start: 06-01-2024 End: 06-01-2025 MR Abdomen WO and W contrast IV MR abdomen w and wo contrast Imaging Routine Acute on chronic pancreatitis (CMS/HCC) (HCC) Expected: 06/01/2024, Expires: 06/01/2025 [facility] Comment on above: Expected: 06/01/2024, Expires: Start: 06-01-2024 End: 06-01-2025 Triglyceride [Mass/volume] in Serum or Plasma Triglyceride Lab Routine Acute on chronic pancreatitis (CMS/HCC) (HCC) Expected: 06/01/2024 (Approximate), Expires: 06/01/2025 [facility] Comment on above: Expected: 06/01/2024 (Approximate), Expi res: 06/01/2025 Start: 04-27-2024 End: 04-27-2024 Patient encounter procedure 04/27/2024 1:30 PM EDT Office Visit [facility] [place] [address] [place] [address] Nikky Escobar MD [address] [place], [place] [id number] [facility] [place] Start: 04-04-2024 End: 04-04-2024 Patient encounter procedure 04/04/2024 3:00 PM EST Office Visit [facility] [address] [place] [phone] [facility] Start: 02-11-2024 Depression Monitoring Depression Monitoring [facility] Start: 02-11-2024 [facility] Start: 12-27-2023 Depression Monitoring Depression Monitoring [facility] Start: 12-16-2023 End: 12-16-2023 ambulatory [facility] [place] Start: 12-16-2023 End: 12-16-2023 Patient encounter procedure 12/16/2023 3:00 PM EST Office Visit [facility] [place] [address] [place] [address] Nikky Escobar MD [address] [place] [address] [facility] [place] Start: 12-02-2023 End: 12-02-2023 Patient encounter procedure 12/02/2023 1:30 PM EDT Office Visit [facility] [place] [address] [place] [address] Nikky Escobar MD [address] [place] [address] [facility] [place] Start: 11-25-2023 End: 11-25-2023 Patient encounter procedure 11/25/2023 1:00 PM EDT Office Visit [facility] [place] [address] [place] [phone] Nikky Escobar MD [address] [place] [address] [facility] [place] Start: 11-18-2023 End: 11-18-2023 Patient encounter procedure 11/18/2023 1:00 PM EDT Office Visit [facility] [place] [address] [place] [address] Nikky Escobar MD [address] [place] [address] [facility] [place] Start: 10-21-2023 End: 10-21-2023 Patient encounter procedure 10/21/2023 3:00 PM EDT Office Visit [facility] [address] [place] [address] Nikky Escobar MD [address] [place] [address] [facility] Start: 10-14-2023 End: 10-14-2023 Patient encounter procedure 10/14/2023 2:30 PM EDT Office Visit [facility] [address] [place] [phone] Nikky Escobar MD [address] [place] [address] [facility] Start: 10-11-2023 COVID-19 Vaccine () COVID-19 Vaccine () [facility] Start: 10-11-2023 COVID-19 Vaccine () COVID-19 Vaccine () [facility] Start: 10-11-2023 Influenza vaccination [facility] Start: 10-11-2023 [facility] Start: 10-07-2023 End: 10-07-2023 Patient encounter procedure 10/07/2023 2:30 PM EDT Office Visit [place] [address] [place] [phone] Nikky Escobar MD [address] [place] [address] [facility] Start: 09-23-2023 End: 09-23-2023 Patient encounter procedure 09/23/2023 2:30 PM EDT Office Visit [facility] [address] [place] [phone] Nikky Escobar MD [address] [place] [address] [facility] Start: 09-16-2023 End: 09-16-2023 Patient encounter procedure 09/16/2023 2:30 PM EDT Office Visit [facility] [address] [place] [phone] Nikky Escobar MD [address] [place] [address] [facility] Start: 09-16-2023 End: 09-15-2024 MEDICATION ASSISTED TREATMENT PANEL MEDICATION ASSISTED TREATMENT PANEL Lab Routine Severe opioid use disorder (HCC) Expected: 09/16/2023 (Approximate), Expires: 09/15/2024 [facility] Work Phone: Comment on above: Expected: 09/16/2023 (Approximate), Expi res: 09/15/2024 Start: 09-09-2023 End: 09-09-2023 Patient encounter procedure 09/09/2023 2:30 PM EDT Office Visit [facility] [address] [place] [address] Nikky Escobar MD [address] [place], [place] [id number] [facility] Start: 09-09-2023 End: 09-08-2024 CBC panel - Blood by Automated count CBC Lab Routine Severe alcohol use disorder (HCC) Expected: 09/09/2023 (Approximate), Expires: 09/08/2024 [facility] Comment on above: Expected: 09/09/2023 (Approximate), Expi res: 09/08/2024 Start: 09-09-2023 End: 09-08-2024 Comprehensive metabolic 1998 panel - Serum or Plasma Comprehensive metabolic panel Lab Routine Severe alcohol use disorder (HCC) Expected: 09/09/2023 (Approximate), Expires: 09/08/2024 [facility] Work Phone: Comment on above: Expected: 09/09/2023 (Approximate), Expi res: 09/08/2024 Start: 09-02-2023 End: 09-02-2023 Patient encounter procedure 09/02/2023 2:30 PM EDT Office Visit [facility] [address] [place] [address] Nikky Escobar MD [address] [place], [place] [id number] [facility] Start: 09-02-2023 End: 09-01-2024 MEDICATION ASSISTED TREATMENT PANEL MEDICATION ASSISTED TREATMENT PANEL Lab Routine Severe opioid use disorder (HCC) Expected: 09/02/2023 (Approximate), Expires: 09/01/2024 [facility] Work Phone: Comment on above: Expected: 09/02/2023 (Approximate), Expi res: 09/01/2024 Start: 08-26-2023 End: 08-25-2024 Buprenorphine and Metab, Urine, Quant Buprenorphine and Metab, Urine, Quant Lab Routine Opioid withdrawal (HCC) Expected: 08/26/2023 (Approximate), Expires: 08/25/2024 [facility] Work Phone: Comment on above: Expected: 08/26/2023 (Approximate), Expi res: 08/25/2024 Start: 08-26-2023 End: 08-25-2024 BUPRENORPHINE SCREEN BUPRENORPHINE SCREEN Lab Routine Opioid withdrawal (HCC) Expected: 08/26/2023 (Approximate), Expires: 08/25/2024 [facility] Comment on above: Expected: 08/26/2023 (Approximate), Expi res: 08/25/2024 Start: 08-26-2023 End: 08-25-2024 DRUG MONITOR, FENTANYL, SCREEN, URINE ([facility]) Drug Monitor, Fentanyl, Screen, Urine ([facility]) Lab Routine Opioid withdrawal (HCC) Expected: 08/26/2023 (Approximate), Expires: 08/25/2024 [facility] Comment on above: Expected: 08/26/2023 (Approximate), Expi res: 08/25/2024 Start: 08-26-2023 End: 08-25-2024 DRUG TOX MONITORING 4 SCREEN, URINE ([facility]) Drug Tox Monitoring 4 Screen, Urine ([facility]) Lab Routine Opioid withdrawal (HCC) Expected: 08/26/2023 (Approximate), Expires: 08/25/2024 [facility] Comment on above: Expected: 08/26/2023 (Approximate), Expi res: 08/25/2024 Start: 08-26-2023 End: 08-25-2024 Ethanol, urine Ethanol, urine Lab Routine Opioid withdrawal (HCC) Expected: 08/26/2023 (Approximate), Expires: 08/25/2024 [facility] Comment on above: Expected: 08/26/2023 (Approximate), Expi res: 08/25/2024 Start: 08-19-2023 End: 08-19-2023 Patient encounter procedure 08/19/2023 3:00 PM EDT Office Visit [facility] [address] [place] [address] Nikky Escobar MD [address] [place] [address] [facility] Start: 07-22-2023 End: 07-22-2023 Patient encounter procedure 07/22/2023 3:00 PM EDT Office Visit [facility] [address] [place] [address] Thiago Hilton DO [address] [place] [address] [facility] Start: 07-01-2023 End: 07-01-2023 Patient encounter procedure 07/01/2023 1:30 PM EDT Office Visit [facility] [address] [place] [address] Thiago Hilton DO [address] [place] [address] [facility] Start: 05-05-2023 Depression Monitoring Depression Monitoring [facility] Start: 05-05-2023 Depresssion Monitoring Depresssion Monitoring [facility] Start: 04-08-2023 End: 04-08-2023 Telemedicine consultation with patient 04/08/2023 3:30 PM EST Telemedicine [facility] [address] [place] [phone] Thiago Hilton DO [address] [place] [address] [facility] Start: 03-12-2023 End: 01-09-2024 QUANTIFERON TB GOLD QUANTIFERON TB GOLD Lab Routine Encounter for testing for latent tuberculosis Expected: 03/12/2023 (Approximate), Expires: 01/09/2024 [facility] Work Phone: Comment on above: Expected: 03/12/2023 (Approximate), Expi res: 01/09/2024 Start: 03-11-2023 End: 03-11-2023 Patient encounter procedure 03/11/2023 3:00 PM EST Office Visit [place] [address] [place] [phone] Thiago Hilton DO [address] [place] [address] [facility] Start: 12-10-2022 End: 12-10-2022 Patient encounter procedure 12/10/2022 2:30 PM EDT Office Visit [facility] [address] [place] [address] Thiago Hilton DO [address] [place] [address] [facility] Start: 11-12-2022 End: 11-12-2022 Patient encounter procedure 11/12/2022 3:45 PM EDT Office Visit [facility] [address] [place] [address] Thiago Hilton DO [address] [place] [address] [facility] Start: 10-10-2022 COVID-19 Vaccine ( season) COVID-19 Vaccine ( season) [facility] Start: 10-10-2022 Influenza vaccination Influenza Vaccine (#1) [facility] Start: 02-22-2021 COVID-19 Vaccine (3 - Booster for Pfizer series) COVID-19 Vaccine (3 - Booster for Pfizer series) [facility] Start: 02-22-2021 COVID-19 Vaccine (3 - Pfizer series) COVID-19 Vaccine (3 - Pfizer series) [facility] Start: 10-11-2019 Influenza vaccination Flu vaccine (Season Ended) [place], [place] Start: 2005 DTaP/Tdap/Td vaccine (1 - Tdap) DTaP/Tdap/Td vaccine (1 - Tdap) [place], [place] Start: 2005 Hepatitis A Vaccines (1 of 2 - Risk 2-dose series) Hepatitis A Vaccines (1 of 2 - Risk 2-dose series) [facility] Start: 2005 Pneumococcal Vaccine: Pediatrics (0 to 5 Years) and At-Risk Patients (6 to 49 Years) (1 of 2 - PCV) Pneumococcal Vaccine: Pediatrics (0 to 5 Years) and At-Risk Patients (6 to 49 Years) (1 of 2 - PCV) [facility] Start: 2005 [facility] Start: 2004 Diabetes mellitus screening Diabetes Screening [facility] Start: 2004 Hepatitis C screening Hepatitis C Screening [facility] Start: 2001 HIV screening HIV screen [place], [place] Start: 11-06-1999 Hepatitis B Vaccines (2 of 3 - 3-dose series) Hepatitis B Vaccines (2 of 3 - 3-dose series) [facility] Start: 11-06-1999 Varicella vaccination [facility] Start: 11-06-1999 [facility] Start: 10-10-1999 DTaP/Tdap/Td Vaccines (2 - Tdap) DTaP/Tdap/Td Vaccines (2 - Tdap) [facility] Start: 1998 Depression Screening Depression Screening [facility] Start: 1992 Pneumococcal 0-64 years Vaccine (1 of 1 - PPSV23) Pneumococcal 0-64 years Vaccine (1 of 1 - PPSV23) [place], [place] Start: 1992 Pneumococcal Vaccine: Pediatrics (0 to 5 Years) and At-Risk Patients (6 to 64 Years) (1 - PCV) Pneumococcal Vaccine: Pediatrics (0 to 5 Years) and At-Risk Patients (6 to 64 Years) (1 - PCV) [facility] Start: 1992 Pneumococcal Vaccine: Pediatrics (0 to 5 Years) and At-Risk Patients (6 to 64 Years) (1 of 2 - PCV) Pneumococcal Vaccine: Pediatrics (0 to 5 Years) and At-Risk Patients (6 to 64 Years) (1 of 2 - PCV) [facility] Start: 1992 [facility] Start: 10-01-1987 Hepatitis A Vaccines (1 of 2 - Risk 2-dose series) Hepatitis A Vaccines (1 of 2 - Risk 2-dose series) [facility] Start: 10-01-1987 Varicella vaccine (1 of 2 - 2-dose childhood series) Varicella vaccine (1 of 2 - 2-dose childhood series) [place], [place] Start: 1986 Dental Oral Exam Dental Oral Exam [facility] Start: 1986 Dental X-ray bitewing Dental X-Ray: Bitewings [facility] Start: 1986 HIV screening HIV Screening [facility] Start: 1986 Lipid panel Lipid Panel [facility] Start: 1986 Preventive periodontal procedure, periodontal prophylaxis Dental Prophylaxis [facility] Nodjf-3-Shucuoyntym, Quantitative Tmucs-4-Ybhmtwbrmia, Quantitative Lab Routine Elevated liver enzymes 2024 3:01 PM EDT [facility] Antimitochondrial antibody Antimitochondrial antibody Lab Routine Elevated liver enzymes 2024 3:01 PM EDT [facility] End: 07-28-2019 C. Trachomatis / N. Gonorrhoeae, DNA C. Trachomatis / N. Gonorrhoeae, DNA Microbiology STAT One Time for 1 Occurrences starting 07/28/2019 until 07/28/2019 [place], [place] Comment on above: One Time for 1 Occurrences starting 07/10 until 07/28/2019 C. Trachomatis / N. Gonorrhoeae, DNA C. Trachomatis / N. Gonorrhoeae, DNA Microbiology STAT 07/28/2019 6:53 PM EDT [place] CELIAC PANEL Celiac Panel Lab Routine Elevated liver enzymes 2024 3:01 PM EDT [facility] Celiac Panel Celiac Panel Lab Routine Elevated liver enzymes 2024 3:01 PM EDT [facility] complete denture - maxillary Max Max ME COMPLETE DENTURE - MAXILLARY Dental Routine 1 Occurrences starting 10/04/2024 [facility] Comment on above: 1 Occurrences starting 10/04/2024 comprehensive oral evaluation - new or established patient ME COMPREHENSIVE ORAL EVALUATION - NEW OR ESTABLISHED PATIENT Dental Routine 1 Occurrences starting 08/24/2024 [employer] Work Phone: Comment on above: 1 Occurrences starting 08/24/2024 ECG 12 lead ECG 12 lead CV E CG STAT 05/24/2022 6:44 AM EDT [employer] Work Phone: extraction, erupted tooth or exposed root (elevation and/or forceps removal) [employer] Work Phone: Comment on above: 1 Occurrences starting 10/04/2024 Hepatitis B Core Antibody, Total Hepatitis B Core Antibody, Total Lab Routine Elevated liver enzymes 2024 3:01 PM EDT [facility] INR in Blood by Coagulation assay POCT INR manually resulted Point of Care Testing Routine Severe alcohol use disorder (HCC) Ordered: 09/09/2023 [facility] Comment on above: Ordered: 09/09/2023 Liver-Kidney Microso me 1 Ab Liver-Kidney Microsome 1 Ab Lab Routine Elevated liver enzymes 2024 3:01 PM EDT [facility] mandibular partial denture - cast metal framework with resin denture bases (including any conventional clasps, rests and teeth) 23,24,25,26,29,30,31,21, 19,18 23,24,25,26,29,30,31,21, 19,18 ME MANDIBULAR PARTIAL DENTURE - CAST METAL FRAMEWORK WITH RESIN DENTURE BASES (INCLUDING RETENTIVE/CLASPING MATERIALS, RESTS AND TEETH) Dental Routine 1 Occurrences starting 10/04/2024 [facility] Comment on above: 1 Occurrences starting 10/04/2024 End: 06-20-2024 MR Abdomen WO and W contrast IV [employer] Work Phone: Comment on above: Once for 1 Occurrences starting 06/21/19 until 06/20/2024 NC VISIT PART OF MULTI-VISIT PROCEDURE NC VISIT PART OF MULTI-VISIT PROCEDURE Dental Routine 1 Occurrences starting 11/15/2024 [employer] Work Phone: Comment on above: 1 Occurrences starting 11/15/2024 Nuclear Ab [Titer] i n Serum by Immunofluorescence [facility] Lab Routine Elevated liver enzymes 2024 3:01 PM EDT [facility] ME REMOVAL OF TORUS MANDIBULARIS ME REMOVAL OF TORUS MANDIBULARIS Dental Routine 1 Occurrences starting 10/04/2024 [facility] Comment on above: 1 Occurrences starting 10/04/2024 QUANTIFERON - PLUS G RAY TUBE QUANTIFERON - PLUS FRANCO TUBE Lab STAT Positive 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 01/07/2023 8:58 AM EST [facility] QUANTIFERON - PLUS G REEN TUBE QUANTIFERON - PLUS GREEN TUBE Lab STAT Positive 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 01/07/2023 8:58 AM EST [facility] QUANTIFERON - PLUS P URPLE TUBE QUANTIFERON - PLUS PURPLE TUBE Lab STAT Positive 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 01/07/2023 8:58 AM EST [facility] QUANTIFERON - PLUS Y ELLOW TUBE QUANTIFERON - PLUS YELLOW TUBE Lab STAT Positive 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 01/07/2023 8:58 AM EST [facility]IF[facility]ON TB GOLD QUANTIFERON TB GOLD Lab STAT Positive 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 01/07/2023 8:58 AM EST [facility] Work Phone: resin-based composit e - one surface, anterior 22 I 22 I ME RESIN-BASED COMPOSITE - ONE SURFACE, ANTERIOR Dental Routine 1 Occurrences starting 10/04/2024 [facility] Comment on above: 1 Occurrences starting 10/04/2024 resin-based composit e - one surface, posterior [facility] Comment on above: 1 Occurrences starting 10/04/2024 resin-based composit e - three surfaces, anterior 27 MID 27 MID ME RESIN-BASED COMPOSITE - THREE SURFACES, ANTERIOR Dental Routine 1 Occurrences starting 10/04/2024 [facility] Comment on above: 1 Occurrences starting 10/04/2024 Smooth muscle antibo dy with reflex Titer Smooth muscle antibody with reflex Titer Lab Routine Elevated liver enzymes 2024 3:01 PM EDT [facility] Immunizations Immunization Date Immunization Notes Care Provider [facility] 08-10-2022 tetanus toxoid, reduced diphtheria toxoid, and acellular pertussis vaccine, adsorbed Guillermo Perales MD Work Phone: [facility] 03-17-2022 Influenza, injectable, Madin Laurence Canine Kidney, preservative free, quadrivalent Neetu Seabrook Work Phone: [facility] 03-17-2022 influenza virus vaccine, unspecified formulation Guillermo Perales MD Work Phone: [facility] 12-28-2020 Covid (Pfizer) No Primary Ca re Physician [facility] 12-07-2020 Covid (Pfizer) No Primary Ca re Physician [facility] 10-09-1999 hepatitis B vaccine, pediatric or pediatric/adolescent dosage Bhupinder Boyd MD Work Phone: [facility] 10-09-1999 measles, mumps and rubella virus vaccine Bhupinder Boyd MD Work Phone: [facility] 10-09-1999 TD(adult) unspecifie d formulation Bhupinder Boyd MD Work Phone: [facility] NEGATED: Highlighted row has not occurred!02-06-2024 influenza, injectable, madin laurence canine kidney, preservative free Francisco Landa MD Work Phone: [facility] Comment on above: Deferred: Patient Re fused - states received one this season. refused NEGATED: Highlighted row has not occurred!01-25-2024 influenza, injectable, madin laurence canine kidney, preservative free Calvin Stephens MD Work Phone: [facility] Comment on above: Deferred: Patient Re fused NEGATED: Highlighted row has not occurred!03-30-2018 Influenza, Quadv, 6 mo and older, IM, PF (Flulaval, Fluarix) [facility], [place] Payers Date Payer Category Payer Self-pay 2022 Unknown [id number] 2021 Medicaid - Dental [place] [employer] DENT[place] [id number] 2021 Medicaid HMO [id number] 2019 Medicaid [id number] 2018 Medicaid [id number] 2018 Unknown [facility] xxxxxxxxxxxx 2018-Present [phone] [address] [place] [address] xxxxxxxxxxxx [id number] 1986 Unknown [id number] 4 1986 Unknown [id number] 4 1986 Unknown [id number] 4 1986 Unknown [id number] 4 1986 Unknown [id number] 4 Unknown [id number] 2 Unknown [id number] 2 Unknown [id number] 2 Social History Date Type Detail Facility Start: 07-28-2019 End: 08-11-2023 Tobacco smoking status NHIS Current every day smoker [facility] History of tobacco use Cigarette Smoker [place], [place] Start: 07-28-2019 End: 04-20-2024 Cigarettes smoked current (pack per day) - Reported [facility] Start: 07-28-2019 End: 08-15-2023 Alcohol intake Current drinker of alcohol (finding) [place], [place] Start: 06-06-2018 End: 03-16-2022 History SDOH Alcohol Frequency 5 [place], [place] Start: 06-06-2018 Alcohol Comment 5th of liquor [place], [place] Start: 1985 Sex Assigned At Not on file [place], [place] Exposure to SARS-CoV -2 (event) Unable to assess [place] Start: 03-16-2022 Alcohol Comment 1 gallon of vo dka, 12 pack of beer daily [facility] Start: 03-05-2022 End: 11-03-2022 Exposure to SARS-CoV-2 (event) Not sure [facility] Start: 06-12-2022 End: 08-11-2023 Tobacco use and exposure Smokeless tobacco non-user [facility] Start: 06-12-2022 History SDOH Alcohol Std Drinks 3 [facility] Start: 07-10-2022 Alcohol Comment 1 liter black velvet and a case of beer per day [facility] Start: 1985 Sex Assigned At Male [facility] Start: 06-26-2022 End: 04-20-2024 Alcohol Use Disorder Identification Test - Consumption [AUDIT-C] [facility] How often to you hav e a drink containing alcohol? 4 or more times a week [facility] How many standard dr inks containing alcohol do you have on a typical day? 10 or more [facility] How often do you hav e 6 or more drinks on 1 occasion? Daily or almost daily [facility] Start: 06-26-2022 Gender identity Identifies as male gender (finding) [facility] Within the last year , have you been afraid of your partner or ex-partner? No [facility] In a typical week, h ow many times do you talk on the telephone with family, friends, or neighbors? Patient refused [facility] Are you now , , , , never or living with a partner? Refused [facility] How hard is it for y ou to pay for the very basics like food, housing, medical care, and heating Very hard [facility] Do you feel stress - tense, restless, nervous, or anxious, or unable to sleep at night because your mind is troubled all the time - these days [OSQ] To some extent [facility] (I/We) worried wheth er (my/our) food would run out before (I/we) got money to buy more. Often true [facility] In the past 12 month s, was there a time when you were not able to pay the mortgage or rent on time? Yes [facility] How often to you hav e a drink containing alcohol? Never [facility] Start: 01-07-2023 End: 12-08-2024 Alcohol intake Ex-drinker (finding) [facility] Are you now , , , , never or living with a partner? Never [facility] Do you feel stress - tense, restless, nervous, or anxious, or unable to sleep at night because your mind is troubled all the time - these days [OSQ] Very much [facility] Start: 08-11-2023 Alcohol Comment 2/5 vodka daily [facility] Start: 09-09-2021 Sex Male (finding) [facility] How many standard dr inks containing alcohol do you have on a typical day? 7 to 9 [facility] How hard is it for y ou to pay for the very basics like food, housing, medical care, and heating Somewhat hard [facility] (I/We) worried wheth er (my/our) food would run out before (I/we) got money to buy more. Never true [facility] In the past 12 month s, how many times have you moved where you were living? In the past 12 months, how many times have you moved where you were living? [facility] How often do you hav e 6 or more drinks on 1 occasion? Weekly [facility] Start: 06-18-2024 Alcohol Comment former 2/5 vod ka daily. Sober since april 2024 [facility] How often do you nee d to have someone help you when you read instructions, pamphlets, or other written material from your doctor or pharmacy [SILS] Sometimes [facility] How often to you hav e a drink containing alcohol? 2-4 times a month [facility] How many standard dr inks containing alcohol do you have on a typical day? 5 or 6 [facility] How often do you hav e 6 or more drinks on 1 occasion? Monthly [facility] Goals Date Patient Goal Desired Activity /State Functional Status Date Assessment Result Facility 11-30-2024 Functional status [facility] Work Phone: 06-26-2024 Total score [AUDIT-C] 06/27/19 7:11 PM Cielo George RN [facility] 03-22-2024 Drug Abuse Screening Test-10 [DAST-10] [facility] 02-05-2024 Patient Health Quest ionnaire 2 item (PHQ-2) [Reported] [facility] 02-05-2024 PHQ-9 quick depressi on assessment panel [Reported.PHQ] [facility] 02-04-2024 Drug Abuse Screening Test-10 [DAST-10] [facility] 12-15-2023 Are you deaf, or do you have serious difficulty hearing No 12/15/2023 1:46 PM Edwige Fagan, RN No [facility] 12-15-2023 Are you blind, or do you have serious difficulty seeing, even when wearing glasses No 12/15/2023 1:46 PM Edwige Fagan, RN No [facility] 12-15-2023 Do you have serious difficulty walking or climbing stairs No 12/15/2023 1:46 PM Edwige Fagan, RN No [facility] 12-15-2023 Do you have difficul ty dressing or bathing No 12/15/2023 1:46 PM Edwige Fagan, RN No [facility] Mental Status Date Assessment Result Facility 12-01-2024 Cognitive function Voice/Name [facility] Work Phone: 12-15-2023 Because of a physica l, mental, or emotional condition, do you have serious difficulty concentrating, remembering, or making decisions No 12/15/2023 1:46 PM EST Edwige Roldan, JOSE GUADALUPE No [facility] Clinical Notes 03-15-2022 to 12-19-2024 Telephone Encounter - Katherin Monroe MA - 12/19/2024 1:44 PM ESTTelephone Encounter - Katherin Monroe MA - 12/19/2024 1:44 PM ESTTelephone Encounter - Katherin Monroe MA - 12/16/2024 1:35 PM EST Note Date & Type Note Facility 12-19-2024 Telephone encounter Note Images from the original note were not included. [facility] 12-19-2024 Miscellaneous Notes Images from the original note were not included. Pt called into our office regarding miss appointment, pt was no show on his appt, want to r.s, let him know we do not have any opening as how now, discuss alternative gi , pt prefer [facility] Referral placed, faxed referral waiting on confrication Pt called into our office regarding scheduling a follow-up after their procedure. Our office is trying to get the pt scheduled with Dr. Cramer for this Dec 16. I sent a secure chat to Dr. Cramer for approval. Will call the pt back once I receive his response. Update: Dr. Cramer approved for the pt to be scheduled. I have the pt down for 12/16/2024 at 8:00 AM. Called and notify pt. documented in this encounter [facility] 12-16-2024 Telephone encounter Note Pt called into our office regarding miss appointment, pt was no show on his appt, want to r.s, let him know we do not have any opening as how now, discuss alternative gi , pt prefer [facility] Referral placed, faxed referral waiting on confrication [facility] 12-16-2024 Miscellaneous Notes Pt called into our office regarding miss appointment, pt was no show on his appt, want to r.s, let him know we do not have any opening as how now, discuss alternative gi , pt prefer [facility] Referral placed, faxed referral waiting on confrication Pt called into our office regarding scheduling a follow-up after their procedure. Our office is trying to get the pt scheduled with Dr. Cramer for this Dec 16. I sent a secure chat to Dr. Cramer for approval. Will call the pt back once I receive his response. Update: Dr. Cramer approved for the pt to be scheduled. I have the pt down for 12/16/2024 at 8:00 AM. Called and notify pt. documented in this encounter [facility] 12-13-2024 Telephone encounter Note Pt called into our office regarding scheduling a follow-up after their procedure. Our office is trying to get the pt scheduled with Dr. Cramer for this Dec 16. I sent a secure chat to Dr. Cramer for approval. Will call the pt back once I receive his response. Update: Dr. Cramer approved for the pt to be scheduled. I have the pt down for 12/16/2024 at 8:00 AM. Called and notify pt. [facility] 12-08-2024 Progress note Formatting of t his note might be different from the original. Request from [facility] for setting up transport home. WC van set up in [employer], claimed by [employer] at 3pm. [facility] Phone: 12-08-2024 Miscellaneous Notes Request from [facility] for setting up transport home. WC van set up in [employer], claimed by [employer] at 3pm. Patient does not have a ride post procedure. His mother who was listed as a ride is at work and can't make it. Patient unable to remember any phone numbers of friends & family members to call for assistance. Janet Uribe notified. [facility] Name: Roro Valdivia Procedure Date: 12/08/2024 12:34 PM Gender: Male Date of : 1985 Age: 39 Admit Type: Outpatient Note Status: Finalized Endoscopist: Sonya Cramer MD, [id number] Procedure: Upper GI endoscopy Indications: Alcoholic cirrhosis Findings: Small esophageal varices not amendable for banding was noted in the distal esophagus Z-line was irregular Mild portal hypertensive gastropathy was noted D1 and D2 were normal Impression: Esophageal varices Irregular Z-line Portal hypertensive gastropathy Recommendation: - Patient has a contact number available for emergencies. The signs and symptoms of potential delayed complications were discussed with the patient. Return to normal activities tomorrow. Written discharge instructions were provided to the patient. - Continue present medications. - Repeat EGD in 1 to 2 years - Follow-up in the GI clinic as previously scheduled - Resume previous diet. - Return to referring physician as previously scheduled. Referring MD: Tam Hughes Medicines: Monitored Anesthesia Care Procedure: Pre-Anesthesia Assessment: - Prior to the procedure, a History and Physical was performed, and patient medications and allergies were reviewed. The patient is competent. The risks and benefits of the procedure and the sedation options and risks were discussed with the patient. All questions were answered and informed consent was obtained. Patient identification and proposed procedure were verified by the physician, the nurse and the wildlife control agent in the pre-procedure area in the procedure room in the endoscopy suite. Mental Status Examination: normal. Airway Examination: normal oropharyngeal airway and neck mobility. Respiratory Examination: clear to auscultation. CV Examination: normal. Prophylactic Antibiotics: The patient does not require prophylactic antibiotics. Prior Anticoagulants: The patient has taken no anticoagulant or antiplatelet agents. ASA Grade Assessment: II - A patient with mild systemic disease. After reviewing the risks and benefits, the patient was deemed in satisfactory condition to undergo the procedure. The anesthesia plan was to use monitored anesthesia care (MAC). Immediately prior to administration of medications, the patient was re-assessed for adequacy to receive sedatives. The heart rate, respiratory rate, oxygen saturations, blood pressure, adequacy of pulmonary ventilation, and response to care were monitored throughout the procedure. The physical status of the patient was re-assessed after the procedure. After obtaining informed consent, the endoscope was passed under direct vision. Throughout the procedure, the patient's blood pressure, pulse, and oxygen saturations were monitored continuously. The Endoscope was introduced through the mouth, and advanced to the second part of duodenum. The upper GI endoscopy was accomplished with ease. The patient tolerated the procedure well. Complications: No immediate complications. Estimated blood loss: None. Attending Participation: I personally performed the entire procedure. Sonya Cramer MD 12/08/2024 12:57:39 PM This report has been signed electronically. Number of Addenda: 0 Note Initiated On: 12/08/2024 12:34 PM documented in this encounter [facility] 12-08-[address] Adrian Loyola anesthesiologist and Dr. Cramer endoscopist notified that patient does not have a ride home. No ride guideline safe transport policy followed. Same day social secretary called and arrangements will be made for an ambulance to take patient home. Patient is aware of plan. [facility] 12-08-[address] Adrian Loyola anesthesiologist and Dr. Cramer endoscopist notified that patient does not have a ride home. No ride guideline safe transport policy followed. Same day social secretary called and arrangements will be made for an ambulance to take patient home. Patient is aware of plan. documented in this encounter [facility] 12-08-2024 Note Patient does not hav e a ride post procedure. His mother who was listed as a ride is at work and can't make it. Patient unable to remember any phone numbers of friends & family members to call for assistance. Janet Uribe notified. [facility] 12-08-2024 Nurse Note Patient does not have a ride post procedure. His mother who was listed as a ride is at work and can't make it. Patient unable to remember any phone numbers of friends & family members to call for assistance. Janet Uribe notified. [facility] 12-08-2024 History and physical note GASTROENTEROLOGY PHYSICIAN PRE PROCEDURE NOTE HPI: Roro Valdivia is a 39 y.o. male who is here today for planned endoscopic examination. All: Allergies[1] Meds: Current Medications[2] PMH: Medical History[3] No reactions to anesthesia in the past. Airway patent PE: VS: BP 115/68 Pulse 56 Temp (!) 35.8 C (96.5 F) (Temporal) Resp 16 Ht 6' 1 (1.854 m) Wt 195 lb (88.5 kg) SpO2 99% BMI 25.73 kg/m Body mass index is 25.73 kg/m . General: Patient in no distress CVS: Regular rate & rhythm Respiratory: Clear to auscultation Abdomen: soft and non tender ASA score : []ASA 1 []ASA 2 [x]ASA 3 ASSESSMENT & PLAN: Risks & benefits of the endoscopic procedure(s) and MAC /GA sedation were personally explained to patient / family along with alternatives to the procedure in detail including radiological and surgical options. The risks of the endoscopic procedure include but are not limited to risk from anesthesia, respiratory failure, infection, bleeding, perforation, pancreatitis with its sequelae , damage to the adjacent organs, missed lesions and need for further procedure, surgery or interventional radiological intervention, from procedure or complications. We made a shared decision to proceed with planned procedure [x]EGD []Colonoscopy []EGD&Colonoscopy Sonya Cramer MD Gastroenterology [1] No Known Allergies [2] Current Facility-Administered Medications: ondansetron (Zofran) injection 4 mg, 4 mg, IntraVENous, Once PRN, Sonya Cramer MD sodium chloride 0.9 % infusion, 5-250 mL/hr, IntraVENous, PRN, Sonya Cramer MD sodium chloride 0.9 % infusion, 5-250 mL/hr, IntraVENous, PRN, Sonya Cramer MD sodium chloride 0.9% (NS) flush 10 mL, 10 mL, IntraVENous, 2 times per day, Sonya Cramer MD sodium chloride 0.9% (NS) flush 10 mL, 10 mL, IntraVENous, PRN, Sonya Cramer MD sodium chloride 0.9% (NS) flush 10 mL, 10 mL, IntraVENous, 2 times per day, Sonya Cramer MD sodium chloride 0.9% (NS) flush 10 mL, 10 mL, IntraVENous, PRN, Sonya Cramer MD [3] Past Medical History: Diagnosis Date Addiction to drug (HCC) Alcohol abuse Alcohol withdrawal syndrome without complication (HCC) 06/27/2022 Alcohol withdrawal with inpatient treatment, uncomplicated (HCC) 03/15/2022 GERD (gastroesophageal reflux disease) History of pancreatitis 01/07/2023 Hypertension Pancreatitis (HHS/HCC) Radial nerve palsy, left Seizures (HCC) SVT (supraventricular tachycardia) ([facility]) Tourette syndrome [facility] Phone: 12-08-2024 Note [facility] 12-08-2024 History and physical note GASTROENTEROLOGY PHYSICIAN PRE PROCEDURE NOTE HPI: Roro Valdivia is a 39 y.o. male who is here today for planned endoscopic examination. All: Allergies[1] Meds: Current Medications[2] PMH: Medical History[3] No reactions to anesthesia in the past. Airway patent PE: VS: BP 115/68 Pulse 56 Temp (!) 35.8 C (96.5 F) (Temporal) Resp 16 Ht 6' 1 (1.854 m) Wt 195 lb (88.5 kg) SpO2 99% BMI 25.73 kg/m Body mass index is 25.73 kg/m . General: Patient in no distress CVS: Regular rate & rhythm Respiratory: Clear to auscultation Abdomen: soft and non tender ASA score : []ASA 1 []ASA 2 [x]ASA 3 ASSESSMENT & PLAN: Risks & benefits of the endoscopic procedure(s) and MAC /GA sedation were personally explained to patient / family along with alternatives to the procedure in detail including radiological and surgical options. The risks of the endoscopic procedure include but are not limited to risk from anesthesia, respiratory failure, infection, bleeding, perforation, pancreatitis with its sequelae , damage to the adjacent organs, missed lesions and need for further procedure, surgery or interventional radiological intervention, from procedure or complications. We made a shared decision to proceed with planned procedure [x]EGD []Colonoscopy []EGD&Colonoscopy Sonya Cramer MD Gastroenterology [1] No Known Allergies [2] Current Facility-Administered Medications: ondansetron (Zofran) injection 4 mg, 4 mg, IntraVENous, Once PRN, Sonya Cramer MD sodium chloride 0.9 % infusion, 5-250 mL/hr, IntraVENous, PRN, Sonya Cramer MD sodium chloride 0.9 % infusion, 5-250 mL/hr, IntraVENous, PRN, Sonya Cramer MD sodium chloride 0.9% (NS) flush 10 mL, 10 mL, IntraVENous, 2 times per day, Sonya Cramer MD sodium chloride 0.9% (NS) flush 10 mL, 10 mL, IntraVENous, PRN, Sonya Cramer MD sodium chloride 0.9% (NS) flush 10 mL, 10 mL, IntraVENous, 2 times per day, Sonya Cramer MD sodium chloride 0.9% (NS) flush 10 mL, 10 mL, IntraVENous, PRN, Sonya Cramer MD [3] Past Medical History: Diagnosis Date Addiction to drug (HCC) Alcohol abuse Alcohol withdrawal syndrome without complication (HCC) 06/27/2022 Alcohol withdrawal with inpatient treatment, uncomplicated (HCC) 03/15/2022 GERD (gastroesophageal reflux disease) History of pancreatitis 01/07/2023 Hypertension Pancreatitis (HHS/HCC) Radial nerve palsy, left Seizures (HCC) SVT (supraventricular tachycardia) (HCC) Tourette syndrome documented in this encounter [facility] 12-08-2024 [facility] Name: Roro Valdivia Procedure Date: 12/08/2024 12:34 PM Gender: Male Date of : 1985 Age: 39 Admit Type: Outpatient Note Status: Finalized Endoscopist: Sonya Cramer MD, [id number] Procedure: Upper GI endoscopy Indications: Alcoholic cirrhosis Findings: Small esophageal varices not amendable for banding was noted in the distal esophagus Z-line was irregular Mild portal hypertensive gastropathy was noted D1 and D2 were normal Impression: Esophageal varices Irregular Z-line Portal hypertensive gastropathy Recommendation: - Patient has a contact number available for emergencies. The signs and symptoms of potential delayed complications were discussed with the patient. Return to normal activities tomorrow. Written discharge instructions were provided to the patient. - Continue present medications. - Repeat EGD in 1 to 2 years - Follow-up in the GI clinic as previously scheduled - Resume previous diet. - Return to referring physician as previously scheduled. Referring MD: Tam Hughes Medicines: Monitored Anesthesia Care Procedure: Pre-Anesthesia Assessment: - Prior to the procedure, a History and Physical was performed, and patient medications and allergies were reviewed. The patient is competent. The risks and benefits of the procedure and the sedation options and risks were discussed with the patient. All questions were answered and informed consent was obtained. Patient identification and proposed procedure were verified by the physician, the nurse and the wildlife control agent in the pre-procedure area in the procedure room in the endoscopy suite. Mental Status Examination: normal. Airway Examination: normal oropharyngeal airway and neck mobility. Respiratory Examination: clear to auscultation. CV Examination: normal. Prophylactic Antibiotics: The patient does not require prophylactic antibiotics. Prior Anticoagulants: The patient has taken no anticoagulant or antiplatelet agents. ASA Grade Assessment: II - A patient with mild systemic disease. After reviewing the risks and benefits, the patient was deemed in satisfactory condition to undergo the procedure. The anesthesia plan was to use monitored anesthesia care (MAC). Immediately prior to administration of medications, the patient was re-assessed for adequacy to receive sedatives. The heart rate, respiratory rate, oxygen saturations, blood pressure, adequacy of pulmonary ventilation, and response to care were monitored throughout the procedure. The physical status of the patient was re-assessed after the procedure. After obtaining informed consent, the endoscope was passed under direct vision. Throughout the procedure, the patient's blood pressure, pulse, and oxygen saturations were monitored continuously. The Endoscope was introduced through the mouth, and advanced to the second part of duodenum. The upper GI endoscopy was accomplished with ease. The patient tolerated the procedure well. Complications: No immediate complications. Estimated blood loss: None. Attending Participation: I personally performed the entire procedure. Sonya Cramer MD 12/08/2024 12:57:39 PM This report has been signed electronically. Number of Addenda: 0 Note Initiated On: 12/08/2024 12:34 PM [facility] 12-01-2024 Telephone encounter Note [address] Sonya Cramer EGD Date: . 12/08/24 Arrival time: 12:15 pm Please report to: [place] [address] Spoke with pt, confirmed they will attend scheduled procedure. Patient states he has prep instructions, he disconnected the call before I could remind him he needed a local [place] truck driver. Prep instructions sent via [facility]. [facility] 12-01-2024 Miscellaneous Notes [address] Sonya Cramer EGGennaro Date: . 12/08/24 Arrival time: 12:15 pm Please report to: [address] [address] Spoke with pt, confirmed they will attend scheduled procedure. Patient states he has prep instructions, he disconnected the call before I could remind him he needed a local [place] truck driver. Prep instructions sent via [facility]. 14 or 7 day confirmation call? 14 day Date/Arrival Time/Location verified with patient? Verified that they have received appropriate prep for procedure? No Verified that they have received appropriate prep instructions? No Verified that patient has transportation to and from procedure? No If using a transportation service, verified that they have a responsible adult to accompany them? No Prior Authorization Obtained? Yes All Clearances obtained (Pulmonary/Cardiology/Medical, etc.) No Is the patient currently on blood thinners? No Has clearance been obtained to hold? N/A Has patient been made aware to hold? N/A Medication List verified for any other medications to hold? No Has patient had any surgeries/hospitalizations since they were scheduled for procedure? No Has the performing physician been made aware? No Does the patient have an insulin pump? No If yes, have directions been obtained for patient with regard to managing it prior to and day of procedure? No All questions answered and patient voiced understanding? No documented in this encounter [facility] 12-01-2024 Note [facility] Medical Records Department [address] [place] [address] Discharge Summary 12/01/24 0959 MR#: [id number] Acct: [id number] Name: RORO VALDIVIA Rep #: [id number] : 1985 39 From: Joe Mcmillan DO PCP: Care Physician,No Primary Status:ADM IN Location: [place] [address] Providers Date of Admission: 11/30/24 Primary Care Physician: No Primary Care Phys Reason For Visit: ETOH DETOX Diagnosis Discharge Diagnosis (1) Chronic alcohol abuse: Status: Chronic Code(s): F10.10 - Alcohol abuse, uncomplicated (2) History of drug abuse: Status: Acute Code(s): F19.11 - Other psychoactive substance abuse, in remission (3) Tobacco abuse: Status: Acute Code(s): Z72.0 - Tobacco use (4) Depression: Status: Acute Code(s): F32.A - Depression, unspecified Qualifiers: Depression Type: unspecified Qualified Code(s): F32.A - Depression, unspecified (5) Anxiety disorder with panic attacks: Status: Acute Code(s): F41.9 - Anxiety disorder, unspecified Plan Alcohol withdrawal * on phenobarbital taper * thiamine and folate * uncomplicated. Per patient, had only been drinking heavily for 2 days. He will follow up with [facility] for further IOP. * pt reports that he takes methadone for his alcohol hisotory and anxiety. UDS positive for methadone and cannabinoids complicating sobriety Chronic medical conditions: * Tobacco Abuse compounding. Tobacco Cessation will be strongly encouraged with Nicotine patch offered to control cravings. * Depression with anxiety and panic attacks; on venlafaxine. Recommend he follow up * Essential hypertension; on metoprolol and clonidine twice daily - Maintain home regimen as before. * History of seizure disorder; currently not on treatment - Give IV lorazepam prn for breakthrough seizure activity. * History of Tourette syndrome - Noted with no evidence of tics or verbal outbursts. * GERD; on pantoprazole - Maintain PPI. * Cirrhosis: told he has cirrhosis by his GI physicians in [place]. Advised ongoing discontinuation of alcohol. DVT prophylaxis - Enoxaparin 40 mg sq daily plus up ad cameron. Medications at Discharge Home Medications clonidine HCl 0.1 mg tablet 0.1 mg PO BID anxiety 11/29/24 hydroxyzine HCl 25 mg tablet 25 mg PO QHS PRN sleep 11/29/24 melatonin 10 mg capsule 20 mg PO QHS sleep 11/29/24 methadone 10 mg tablet 140 mg PO DAILY opiates and alcohol cravings and anxiety 11/29/24 metoprolol succinate 50 mg PO DAILY palpitations 11/29/24 pantoprazole 20 mg PO BID gerd 11/29/24 venlafaxine 75 mg tablet 75 mg PO DAILY anxiety 11/29/24 Hospital Course Operations None Procedures None Weight / BMI Weight Weight: 84.323 kg Body Mass Index (BMI) 24.5 ABG / Lab / Microbiology Data 11/29/24 21:19 11/29/24 21:19 D/C Instructions DC O2, CPAP, BIPAP Needs Home O2 Discharge instructions: No Meaningful Use Info Meaningful Use Meaningful Use Diagnoses (Choose all that apply): None applicable Discharge Plan Admission Admit Date/Time: 11/30/24 01:34 Primary Reason for Your Visit: alcohol withdrawal. Attending Provider: Joe Mcmillan Primary Care Provider: Orquidea Physician,Michelle Primary Consulting Providers: Lázaro Brush Discharge Orders/Prescriptions Prescriptions: Continued metoprolol succinate 50 mg PO DAILY venlafaxine 75 mg tablet 75 mg PO DAILY clonidine HCl 0.1 mg tablet 0.1 mg PO BID hydroxyzine HCl 25 mg tablet 25 mg PO QHS PRN (Reason: sleep) pantoprazole [Protonix] 20 mg PO BID melatonin 10 mg capsule 20 mg PO QHS methadone 10 mg tablet 140 mg PO DAILY Referrals / Follow Up: Care Physician,No Primary [Primary Care Provider, Medical] Disposition Disposition (needs filled in before D/C Order can be placed): Home, Self Care Charges/Coding Visit Charges Inpatient E M: 80346 Disch Hosp 12/01/24 1003 Cosigner Signature (if applicable): CC: Dr. Joe Mcmillan DO; No Primary Care Physician Signed [facility] 11-30-2024 Discharge summary [facility] 11-29-2024 Discharge summary Note Date/Time November 30, 2024 1:26am [facility] Medical Records Department [address] [place] [address] Emergency Department Summary 11/29/24 MR#: [id number] Acct: [id number] Name: RORO VALDIVIA Rep #:[id number] : 1985 39 From: Amilcar lindsey DO PCP: Care Physician,No Primary Status :REG ER Location: ED HPI History of Present Illness Chief Complaint: Substance Abuse Narrative Narrative: Chief complaint and HPI: 39-year-old male with past medical history of liver cirrhosis secondary to alcohol abuse, anxiety presents for evaluation of alcoholwithdrawal and requesting detox. Patient states that he missed multiple doses of his mental health medications. This caused frequent panic attacks in which he started drinking alcohol. He states he has drank for 4 days straight about ahalf a gallon of vodka a day. He last drank at 1730 tonight. He endorses some nausea and anxiety. He would like detox. Has been through detox in the past. Review of systems: See HPI Medications: As listed on the chart Allergies: As listed on the chart PFSH: Per chart Vital signs: As listed on the chart. Reviewed. Physical exam: Gen: A&O x3, NAD Head: Normocephalic, atraumatic Eyes: No sclera icterus, conjunctiva clear ENT: Dry mucous membranes CV: RRR, no murmurs Resp: Lungs CTA BL, no w/r/c GI: Abd soft, non-distended, non-tender, no r/r/g Musc: Full ROM, no deformity Skin: Warm, dry Neuro: Alert, oriented, grossly intact, sensation intact Psych: Cooperative, appropriate mood and affect PFSH PFSH Medical History Anxiety Liver fibrosis Cirrhosis of liver Tourette disease Seizure Home Medications ?Medication ?Instructions ?Recorded ?Last Taken ?Type clonidine HCl 0.1 mg tablet 0.1 mg PO BID 11/29/24 Unk nown History hydroxyzine HCl 25 mg tablet 25 mg PO QHS PRN sleep Unknown History melatonin 10 mg capsule 20 mg PO QHS 11/29/24 Unknow n History methadone 10 mg tablet 140 mg PO DAILY 11/29/24 Unk nown History metoprolol succinate PO DAILY 11/29/24 Unknown Hi story pantoprazole PO BID 11/29/24 Unknown Hist ory venlafaxine 75 mg tablet 75 mg PO DAILY 11/29/24 Unkn own History Allergy/AdvReac Type Severity Reaction Status Date / Time No Known Allergies Allergy Verified 11/29/24 19:54 Social History Smoking Status: Current every day smoker tobacco type: cigarettes EXAM Physical Exam Const Vital Signs: 11/29/24 19:54 11/29/24 21:21 11/29/24 21:21 Temperature 97.2 F L 97.2 F L Temperature Source Temporal Oral Pulse Rate 92 72 70 Respiratory Rate 24 H 16 16 Blood Pressure 125/100 H 145/90 H 145/90 H Blood Pressure Mean 108 108 108 Blood Pressure Source Monitor Blood Pressure Position Semi-Fowlers Blood Pressure Location Right Arm Pulse Ox 100 99 99 Oxygen Delivery Method Room Air Room Air Room Air 11/29/24 22:00 11/29/24 22:46 11/29/24 23:00 Temperature 98.7 F Temperature Source Pulse Rate 78 77 77 Respiratory Rate 16 16 18 Blood Pressure 134/90 H 133/66 H 122/77 H Blood Pressure Mean 104 88 92 Blood Pressure Source Blood Pressure Position Blood Pressure Location Pulse Ox 98 98 97 Oxygen Delivery Method Room Air Room Air 11/30/24 00:00 Temperature Temperature Source Pulse Rate 81 Respiratory Rate 16 Blood Pressure 118/74 Blood Pressure Mean 88 Blood Pressure Source Blood Pressure Position Blood Pressure Location Pulse Ox 98 Oxygen Delivery Method Room Air MDM MDM MDM Narrative Medical decision making narrative: 39-year-old male with past medical history of liver cirrhosis secondary to alcohol abuse, anxiety presents for evaluation of alcohol withdrawal and requesting detox. Patient states that he missed multiple doses of his mental health medications. This caused frequent panic attacks in which he started drinking alcohol. He states he has drank for 4 days straight about a half a gallon of vodka a day. He last drank at 1730 tonight. He endorses some nausea and anxiety. He would like detox. Differential diagnosis includes but is not limited to alcohol intoxication, alcohol withdrawal, requesting alcohol detox, dehydration, EMELY, cirrhosis. NS bolus, Ativan, Zofran ordered for symptoms. Laboratory workup ordered. CBC without leukocytosis. Patient has anemia with hemoglobin of 12.5. Thrombocytopenia with platelet count of 141. INR 1.6. CMPwith AST transaminitis at 109. Secondary to his alcohol abuse. No EMELY. Drug screen positive for methadone and THC. Patient is on methadone outpatient. Alcohol level 33.5. Patient will warrant admission for detox. Patient discussed with the hospitalist who accepted admission. Patient was updated on the results and further understand the plan. Impression: 1. Alcohol intoxication with alcohol abuse 2. AST transaminitis 3. Requesting alcohol detox 4. Polysubstance abuse Lab Data Labs: Laboratory Results - last 24 hr 11/29/24 11/29/24 20:14 21:19 WBC 5.8 RBC 4.14 L Hgb 12.5 L Hct 37.0 L MCV 89.4 MCH 30.2 MCHC 33.8 RDW Std Deviation 45.7 H RDW Coeff of Jimy 14.1 Plt Count 141 L MPV 10.1 Immature Gran % (Auto) 0.200 Neut % (Auto) 63.3 Lymph % (Auto) 28.2 Pleasants % (Auto) 7.5 Eos % (Auto) 0.5 Baso % (Auto) 0.3 Absolute Neuts (auto) 3.6 Absolute Lymphs (auto) 1.62 Nucleated RBC % 0 PT 19.7 H INR 1.6 Sodium 138 Potassium 4.7 Chloride 100 Carbon Dioxide 23.8 Anion Gap 14 BUN 2 L Creatinine 0.55 L Estim Creat Clear Calc 205.80 Est GFR (MDRD) Non-Af 130 BUN/Creatinine Ratio 4.3 L Glucose 87 Calcium 9.7 Total Bilirubin 1.48 H AST 109 H ALT 33 Alkaline Phosphatase 261 H Total Protein 8.1 Albumin 3.8 Globulin 4.3 H Albumin/Globulin Ratio 0.9 Urine Opiates Screen NEGATIVE U Buprenorphine Qual NEGATIVE Ur Oxycodone Screen NEGATIVE Urine Methadone Screen PRESUMPTIVE POSITIVE Urine Fentanyl Screen NEGATIVE Ur Barbiturates Screen NEGATIVE Ur Phencyclidine Scrn NEGATIVE Ur Amphetamines Screen NEGATIVE U Benzodiazepines Scrn NEGATIVE Urine Cocaine Screen NEGATIVE U Cannabinoids Screen PRESUMPTIVE POSITIVE Ethyl Alcohol 33.5 H Discharge Plan Triage Chief Complaint: Substance Abuse ED Provider: Amilcar Dumont Dx/Rx/DC Orders Prescriptions: No Action metoprolol succinate PO DAILY venlafaxine 75 mg tablet 75 mg PO DAILY clonidine HCl 0.1 mg tablet 0.1 mg PO BID hydroxyzine HCl 25 mg tablet 25 mg PO QHS PRN (Reason: sleep) pantoprazole [Protonix] PO BID melatonin 10 mg capsule 20 mg PO QHS methadone 10 mg tablet 140 mg PO DAILY Primary Care Provider: Care Physician,No Primary Referrals: Care Physician,No Primary [Primary Care Provider, Medical] Print Language: [place] Korean What to do if you have Problems For any increased pain, shortness of breath, bleeding, nausea or vomiting, chestpain, or any unexpected problems, contact your Primary Care Provider. Call [facility] ([phone]) or report to the closest Emergency Room. Call 911 if necessary. 11/30/24 0026 <Electronically signed by Amilcar Dumont DO> Cosigner Signature (if applicable): CC: No Primary Care Physician ~ Signed [facility] Work Phone: [phone] Telephone encounter Note* Telephone Encounter - Suzy Carrero MA - 11/24/2024 11:04 AM EDT 14 or 7 day confirmation call? 14 day Date/Arrival Time/Location verified with patient? Verified that they have received appropriate prep for procedure? No Verified that they have received appropriate prep instructions? No Verified that patient has transportation to and from procedure? No If using a transportation service, verified that they have a responsible adult to accompany them? No Prior Authorization Obtained? Yes All Clearances obtained (Pulmonary/Cardiology/Medical, etc.) No Is the patient currently on blood thinners? No Has clearance been obtained to hold? N/A Has patient been made aware to hold? N/A Medication List verified for any other medications to hold? No Has patient had any surgeries/hospitalizations since they were scheduled for procedure? No Has the performing physician been made aware? No Does the patient have an insulin pump? No If yes, have directions been obtained for patient with regard to managing it prior to and day of procedure? No All questions answered and patient voiced understanding? No T Blend [id number] History of Present illness Narrative* Ajay Ochoa DMD - 11/15/2024 2:00 PM EDT Procedure Details 19 D7140 - ME EXTRACTION, ERUPTED TOOTH OR EXPOSED ROOT (ELEVATION AND/OR FORCEPS REMOVAL) 21 D7140 - ME EXTRACTION, ERUPTED TOOTH OR EXPOSED ROOT (ELEVATION AND/OR FORCEPS REMOVAL) 23 D7140 - ME EXTRACTION, ERUPTED TOOTH OR EXPOSED ROOT (ELEVATION AND/OR FORCEPS REMOVAL) 24 D7140 - ME EXTRACTION, ERUPTED TOOTH OR EXPOSED ROOT (ELEVATION AND/OR FORCEPS REMOVAL) 25 D7140 - ME EXTRACTION, ERUPTED TOOTH OR EXPOSED ROOT (ELEVATION AND/OR FORCEPS REMOVAL) 26 D7140 - ME EXTRACTION, ERUPTED TOOTH OR EXPOSED ROOT (ELEVATION AND/OR FORCEPS REMOVAL) 29 D7140 - ME EXTRACTION, ERUPTED TOOTH OR EXPOSED ROOT (ELEVATION AND/OR FORCEPS REMOVAL) Subjective Patient ID: Roro Valdivia is a 39 y.o. male. No chief complaint on file. Patient presents for extraction # 19, 21, 23, 24, 25, 26, 29 Changes in medical history: no changes in medical history Patient does not take premedication. Blood pressure: 127/75 Procedure, risks, prognosis, and alternative procedures explained to patient. Consent given to undergo procedure. Consent signed. Whole number of capsules injected: 5 Administered anesthetic: Septocaine 4% with Epinephrine 1:100,000 Type of injection: local infiltration, EVI block, and mental block Reflected tissue and luxated. Tooth # 19, 21, 23, 24, 25 ,26, 29 was successfully extracted and placed in biohazard container. Curetted socket and rinsed with saline. Suture type placed no Post-operative instructions given written and orally. Gauze applied and firm pressure held. Hemostasis achieved prior to patient dismissal. Next visit: Oral surgery rubin removal Attending: ERVIN Reza DMD 3:27 PM 11/15/24 documented in this [facility]10-07-2025 History of Present illness Narrative* Ajay Ochoa DMD - 11/15/2024 2:00 PM EDT Procedure Details 19 D7140 - ME EXTRACTION, ERUPTED TOOTH OR EXPOSED ROOT (ELEVATION AND/OR FORCEPS REMOVAL) 21 D7140 - ME EXTRACTION, ERUPTED TOOTH OR EXPOSED ROOT (ELEVATION AND/OR FORCEPS REMOVAL) 23 D7140 - ME EXTRACTION, ERUPTED TOOTH OR EXPOSED ROOT (ELEVATION AND/OR FORCEPS REMOVAL) 24 D7140 - ME EXTRACTION, ERUPTED TOOTH OR EXPOSED ROOT (ELEVATION AND/OR FORCEPS REMOVAL) 25 D7140 - ME EXTRACTION, ERUPTED TOOTH OR EXPOSED ROOT (ELEVATION AND/OR FORCEPS REMOVAL) 26 D7140 - ME EXTRACTION, ERUPTED TOOTH OR EXPOSED ROOT (ELEVATION AND/OR FORCEPS REMOVAL) 29 D7140 - ME EXTRACTION, ERUPTED TOOTH OR EXPOSED ROOT (ELEVATION AND/OR FORCEPS REMOVAL) Subjective Patient ID: Roro Valdivia is a 39 y.o. male. No chief complaint on file. Patient presents for extraction # 19, 21, 23, 24, 25, 26, 29 Changes in medical history: no changes in medical history Patient does not take premedication. Blood pressure: 127/75 Procedure, risks, prognosis, and alternative procedures explained to patient. Consent given to undergo procedure. Consent signed. Whole number of capsules injected: 5 Administered anesthetic: Septocaine 4% with Epinephrine 1:100,000 Type of injection: local infiltration, EVI block, and mental block Reflected tissue and luxated. Tooth # 19, 21, 23, 24, 25 ,26, 29 was successfully extracted and placed in biohazard container. Curetted socket and rinsed with saline. Suture type placed no Post-operative instructions given written and orally. Gauze applied and firm pressure held. Hemostasis achieved prior to patient dismissal. Next visit: Oral surgery rubin removal Attending: ERVIN Reza DMD 3:27 PM 11/15/24 * Vamshi Moncada DDS - 11/15/2024 2:00 PM EDT I saw and evaluated the patient, participating in the erickson portions of the service. I reviewed the resident s note. I agree with the resident s findings and plan. Vamshi Moncada DDS documented in this [facility]10-07-2025 Telephone encounter Note* Telephone Encounter - Hattie Law MA - 11/15/2024 12:56 PM EDT I called patient to relay new order information, no answer, left voicemail to let him know new bloodwork ordered, advised to call office if he does have questions. [id number] Miscellaneous Notes* Telephone Encounter - Hattie Law MA - 11/15/2024 12:56 PM EDT I called patient to relay new order information, no answer, left voicemail to let him know new bloodwork ordered, advised to call office if he does have questions. * Addendum Note - Guillermo Mon PA-C - 11/10/2024 3:31 PM EDTAddended by: GUILLERMO MON on: 11/10/2024 03:31 PM Modules accepted: Orders * Result Encounter Note - Guillermo Mon PA-C - 11/10/2024 3:31 PM EDT Hep A positive. Most likely from previous resolved infection or immunity. But will check to see if recent infection. * Telephone Encounter - Hattie Law MA - 11/09/2024 1:52 PM EDT Called back patient and spoke with him. Patient is concerned about abnormal hepatitis A result and would like to know if any additional testing needs done or what to do. Advised will route to provider for review * Telephone Encounter - Afshin Dubose - 11/08/2024 1:05 PM EDT Pt called and lvm for office frustrated as he keeps missing our calls and can never get a hold of our office back. Thanks * Telephone Encounter - Hattie Law MA - 11/08/2024 11:41 AM EDT Called patient, no answer, left voicemail relaying results. Provided office number if patient has any questions or concerns. * Telephone Encounter - Hattie Law MA - 11/08/2024 11:41 AM EDT ----- Message from Judith Park sent at 11/08/2024 10:55 AM EDT ----- ----- Message ----- From: Guillermo Mon PA-C Sent: 11/07/2024 10:26 AM EDT To: Judith Sofia MA Liver numbers are going down. AFP tumor marker is negative. ----- Message ----- From: [facility] Results In Sent: 11/05/2024 6:10 AM EDT To: Guillermo Mon PA-C * Result Encounter Note - Guillermo Mon PA-C - 11/07/2024 11:03 AM EDT INR is slightly increased, but improved since last time. * Result Encounter Note - Guillermo Mon PA-C - 11/07/2024 10:26 AM EDT Liver numbers are going down. AFP tumor marker is negative. documented in this [facility]10-02-2025 Note* Addendum Note - Guillermo Mon PA-C - 11/10/2024 3:31 PM EDTAddended by: GUILLERMO MON on: 11/10/2024 03:31 PM Modules accepted: Orders [place] [id number] Note* Addendum Note - Guillermo Mon PA-C - 11/10/2024 3:31 PM EDTAddended by: GUILLERMO MON on: 11/10/2024 03:31 PM Modules accepted: Orders [place] [id number] Progress note* Result Encounter Note - Guillermo Mon PA-C - 11/10/2024 3:31 PM EDT Hep A positive. Most likely from previous resolved infection or immunity. But will check to see if recent infection. [id number] Miscellaneous Notes* Addendum Note - Guillermo Mon PA-C - 11/10/2024 3:31 PM EDTAddended by: GUILLERMO MON on: 11/10/2024 03:31 PM Modules accepted: Orders * Result Encounter Note - Guillermo Mon PA-C - 11/10/2024 3:31 PM EDT Hep A positive. Most likely from previous resolved infection or immunity. But will check to see if recent infection. * Telephone Encounter - Hattie Law MA - 11/09/2024 1:52 PM EDT Called back patient and spoke with him. Patient is concerned about abnormal hepatitis A result and would like to know if any additional testing needs done or what to do. Advised will route to provider for review * Telephone Encounter - Afshin Dubose - 11/08/2024 1:05 PM EDT Pt called and lvm for office frustrated as he keeps missing our calls and can never get a hold of our office back. Thanks * Telephone Encounter - Hattie Law MA - 11/08/2024 11:41 AM EDT Called patient, no answer, left voicemail relaying results. Provided office number if patient has any questions or concerns. * Telephone Encounter - Hattie Law MA - 11/08/2024 11:41 AM EDT ----- Message from Judith Park sent at 11/08/2024 10:55 AM EDT ----- ----- Message ----- From: Guillermo Mon PA-C Sent: 11/07/2024 10:26 AM EDT To: Judith Sofia MA Liver numbers are going down. AFP tumor marker is negative. ----- Message ----- From: [facility] Results In Sent: 11/05/2024 6:10 AM EDT To: Guillermo Mon PA-C * Result Encounter Note - Guillermo Mon PA-C - 11/07/2024 11:03 AM EDT INR is slightly increased, but improved since last time. * Result Encounter Note - Guillermo Mon PA-C - 11/07/2024 10:26 AM EDT Liver numbers are going down. AFP tumor marker is negative. documented in this [facility]10-01-2025 Telephone encounter Note* Telephone Encounter - Hattie Law MA - 11/09/2024 1:52 PM EDT Called back patient and spoke with him. Patient is concerned about abnormal hepatitis A result and would like to know if any additional testing needs done or what to do. Advised will route to provider for review [id number] Miscellaneous Notes* Telephone Encounter - Hattie Law MA - 11/09/2024 1:52 PM EDT Called back patient and spoke with him. Patient is concerned about abnormal hepatitis A result and would like to know if any additional testing needs done or what to do. Advised will route to provider for review * Telephone Encounter - Afshin Dubose - 11/08/2024 1:05 PM EDT Pt called and lvm for office frustrated as he keeps missing our calls and can never get a hold of our office back. Thanks * Telephone Encounter - Hattie Law MA - 11/08/2024 11:41 AM EDT Called patient, no answer, left voicemail relaying results. Provided office number if patient has any questions or concerns. * Telephone Encounter - Hattie Law MA - 11/08/2024 11:41 AM EDT ----- Message from Judith Park sent at 11/08/2024 10:55 AM EDT ----- ----- Message ----- From: Guillermo Mon PA-C Sent: 11/07/2024 10:26 AM EDT To: Judith Sofia MA Liver numbers are going down. AFP tumor marker is negative. ----- Message ----- From: Alessandra [facility] Results In Sent: 11/05/2024 6:10 AM EDT To: Guillermo Mon PA-C * Result Encounter Note - Guillermo Mon PA-C - 11/07/2024 11:03 AM EDT INR is slightly increased, but improved since last time. * Result Encounter Note - Guillermo Mon PA-C - 11/07/2024 10:26 AM EDT Liver numbers are going down. AFP tumor marker is negative. documented in this encounterSDayton Children's [id number] Telephone encounter Note* Telephone Encounter - Afshin Dubose - 11/08/2024 1:05 PM EDT Pt called and lvm for office frustrated as he keeps missing our calls and can never get a hold of our office back. Thanks [id number] Miscellaneous Notes* Telephone Encounter - Afshin Dubose - 11/08/2024 1:05 PM EDT Pt called and lvm for office frustrated as he keeps missing our calls and can never get a hold of our office back. Thanks * Telephone Encounter - Hattie Law MA - 11/08/2024 11:41 AM EDT Called patient, no answer, left voicemail relaying results. Provided office number if patient has any questions or concerns. * Telephone Encounter - Hattie Law MA - 11/08/2024 11:41 AM EDT ----- Message from Judith Park sent at 11/08/2024 10:55 AM EDT ----- ----- Message ----- From: Guillermo Mon PA-C Sent: 11/07/2024 10:26 AM EDT To: Judith Sofia MA Liver numbers are going down. AFP tumor marker is negative. ----- Message ----- From: [facility] Results In Sent: 11/05/2024 6:10 AM EDT To: Guillermo Mon PA-C * Result Encounter Note - Guillermo Mon PA-C - 11/07/2024 11:03 AM EDT INR is slightly increased, but improved since last time. * Result Encounter Note - Guillermo Mon PA-C - 11/07/2024 10:26 AM EDT Liver numbers are going down. AFP tumor marker is negative. documented in this encounterSDayton Children's [id number] Telephone encounter Note* Telephone Encounter - Hattie Law MA - 11/08/2024 11:41 AM EDT Called patient, no answer, left voicemail relaying results. Provided office number if patient has any questions or concerns. [facility] [id number] Telephone encounter Note* Telephone Encounter - Hattie Law MA - 11/08/2024 11:41 AM EDT ----- Message from Judith Park sent at 11/08/2024 10:55 AM EDT ----- ----- Message ----- From: Guillermo Mon PA-C Sent: 11/07/2024 10:26 AM EDT To: Judith Sofia MA Liver numbers are going down. AFP tumor marker is negative. ----- Message ----- From: [facility] Results In Sent: 11/05/2024 6:10 AM EDT To: Guillermo Mon PA-C [facility] [id number] Progress note* Result Encounter Note - Guillermo Mon PA-C - 11/07/2024 11:03 AM EDT INR is slightly increased, but improved since last time. [place] Phone: [phone] Telephone encounter Note* Telephone Encounter - Hattie Law MA - 11/07/2024 10:42 AM EDT Ok from anesthesia standpoint per wanda loyola [id number] Miscellaneous Notes* Telephone Encounter - Hattie Law MA - 11/07/2024 10:42 AM EDT Ok from anesthesia standpoint per wanda loyola * Telephone Encounter - Hattie Law MA - 11/01/2024 10:46 AM EDT During check out patient also stated he is on Methadone and started today. It is not listed in medication list. Called patient to check what form the medication is(liquid vs tablet) to confirm if it will have to be held. Asked patient to call back, left voicemail with office number. * Telephone Encounter - Hattie Law MA - 11/01/2024 10:03 AM EDT Scheduled patient for EGD 12/08/24 at 1:[address] Cramer at [facility] NON-MAIN ENDO forhistory of esophagitis. Patient aware prep instructions will be mailed to him and sent via [facility] EPIC schedule updated Order submitted Open Case request submitted Case # [id number] Endo packet mailed to patient Prep sent via [facility] if pt acct active Pt is aware they will need a local [place] truck driver to take them home from procedure. Must be family member or friend. They can only use ride programs, IF they have a friend or family member to ride with them. Ex: Uber, Lyft, SCAT, bus, etc...) * Telephone Encounter - Hattie Law MA - 11/01/2024 10:02 AM EDT --Please call office with any questions or concerns! [phone] --Schedule EGD (upper endoscopy) for varices screening, follow up of esophagitis. --Continue Pantoprazole 40 mg daily. --Obtain additional blood work for further evaluation of the symptoms. --Continue to abstain from alcohol. --Please see handout provided regarding additional information. --Follow-up with PCP, and in GI clinic in about 6 months. documented in this encounterSDayton Children's [id number] Progress note* Result Encounter Note - Guillermo Mon PA-C - 11/07/2024 10:26 AM EDT Liver numbers are going down. AFP tumor marker is negative. [facility] [id number] Telephone encounter Note* Telephone Encounter - Hattie Law MA - 11/01/2024 10:46 AM EDT During check out patient also stated he is on Methadone and started today. It is not listed in medication list. Called patient to check what form the medication is(liquid vs tablet) to confirm if it will have to be held. Asked patient to call back, left voicemail with office number. [facility] [id number] Telephone encounter Note* Telephone Encounter - Hattie Law MA - 11/01/2024 10:03 AM EDT Scheduled patient for EGD 12/08/24 at 1:[address] Cramer at [facility] NON-MAIN ENDO forhistory of esophagitis. Patient aware prep instructions will be mailed to him and sent via [place] schedule updated Order submitted Open Case request submitted Case # [id number] Endo packet mailed to patient Prep sent via [facility] if pt acct active Pt is aware they will need a local [place] truck driver to take them home from procedure. Must be family member or friend. They can only use ride programs, IF they have a friend or family member to ride with them. Ex: Uber, Lyft, SCAT, bus, etc...) Bl[facility] [id number] Telephone encounter Note* Telephone Encounter - Hattie Law MA - 11/01/2024 10:02 AM EDT --Please call office with any questions or concerns! [phone] --Schedule EGD (upper endoscopy) for varices screening, follow up of esophagitis. --Continue Pantoprazole 40 mg daily. --Obtain additional blood work for further evaluation of the symptoms. --Continue to abstain from alcohol. --Please see handout provided regarding additional information. --Follow-up with PCP, and in GI clinic in about 6 months. T Bl[facility] [id number] History of Present illness Narrative* Guillermo Mon PA-C - 11/01/2024 9:00 AM EDT Images from the original note were not included. [facility] - [address] [facility] [address] Dept: [phone] Dept Loc: [phone] Visit type: Established Reason for Visit: Follow-up (Nausea, loss of appetite ) Assessment and Plan Problem List Items Addressed This Visit Alcohol induced acute pancreatitis without necrosis or infection Polysubstance use disorder (Chronic) Elevated liver enzymes Relevant Orders Ceruloplasmin Other Visit Diagnoses Alcoholic cirrhosis of liver without ascites (CMS/HCC) (HCC) - Primary Relevant Orders AFP Tumor Marker Hepatitis A Antibody, Total Comprehensive metabolic panel Protime-INR History of alcohol abuse Compensated EtOH Cirrhosis. F4 cirrhosis on fibroscan Liver Stiffness Score of 75 kPa . Last drink a couple months ago. MELD-Na: 9 at 04/06/2024. History of polysubstance abuse including (previous vodka, cocaine, meth, oxycodon, fentanyl, heroin, benzodiazapine) IVDU, EtOH abuse, recurrent pancreatitis, HTN, GERD, EtOH withdrawal related seizures. Multiple hospital admissions and ED visits for same. Last hospitalization 04/16/2024; last ED visit 07/02/2024. Last illicit substance months ago. -Varices- Unknown. Schedule screening EGD. -AIDAN- No concern. A&Ox3. No confusion. -HRE- No concern based on creatinine. -HCC- None seen on MRI 06/2024. Will add AFP. -Ascites- no history of, none seen on imaging. --complete alcohol abstinence is recommended. --Recalculate MELD. --Recommend vaccination against Hep B. --low sodium diet. --follow up in 6 months. Follow up in about 6 months (around 05/01/2025) for Next scheduled follow-up. Advised patient to call office with new or worsening symptoms, questions, or concerns. Patient verbalized understanding and agreement of plan. Trey De La Fuente is a 39 y.o. male who presents as a follow up to fibroscan, serology. HPI Is doing well. No abdominal pain. Has intermittent nausea and vomiting. No hematemesis. No history of fluid. No confusion. No recent bouts of pancreatitis. Has lost some weight. Is taking Pantoprazole 40 mg daily. No dysphagia or odynophagia. EtOH: Last drink a couple months ago. Tobacco: 1 PPD. NSAIDs: None. Illicit drugs: None. Last use months ago, closer to a year. Family History of Colon Cancer: None. Prior EGD/Colonoscopy: 12/2023. Prior Abdominal Surgery: appendectomy. Review of Systems Constitutional: Negative for appetite change, chills, fatigue, fever and unexpected weight change. HENT: Negative for trouble swallowing. Respiratory: Negative for cough, choking and shortness of breath. Cardiovascular: Negative for chest pain. Gastrointestinal: Negative for abdominal distention, abdominal pain, anal bleeding, blood in stool,constipation, diarrhea, nausea, rectal pain and vomiting. Skin: Negative for color change, pallor and rash. Psychiatric/Behavioral: Negative for confusion. Allergies[1] Current Medications[2] Patient Active Problem List Diagnosis Date Noted Pancreatitis, unspecified pancreatitis type 04/04/2024 Priority: Medium Severe malnutrition (CMS/HCC) ([facility]) 02/06/2024 Priority: Medium Alcohol withdrawal syndrome without complication ([facility]) 02/04/2024 Priority: Medium Alcohol-induced acute pancreatitis, unspecified complication status 01/20/2024 Priority: Medium Alcoholic intoxication without complication (CMS/HCC) ([facility]) 12/13/2023 Priority: Medium Moderate malnutrition (CMS/HCC) ([facility]) 11/20/2023 Priority: Medium Acute pancreatitis without infection or necrosis 11/18/2023 Priority: Medium Acute recurrent pancreatitis 10/16/2023 Priority: Medium Severe opioid use disorder on maintenance therapy ([facility]) 08/11/2023 Priority: Medium Severe episode of recurrent major depressive disorder, without psychotic features ([facility]) 08/11/2023 Priority: Medium Severe alcohol use disorder ([facility]) 06/24/2023 Priority: Medium Positive 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 01/07/2023 Priority: Medium History of pancreatitis 01/07/2023 Priority: Medium Benzodiazepine withdrawal with complication ([facility]) 11/04/2022 Priority: Medium Opioid withdrawal ([facility]) 11/04/2022 Priority: Medium Amphetamine withdrawal ([facility]) 11/04/2022 Priority: Medium Pneumonia 11/04/2022 Priority: Medium Palpitations 11/04/2022 Priority: Medium Other specified abnormal findings of blood chemistry 11/04/2022 Priority: Medium Dermatitis 11/04/2022 Priority: Medium Depression 11/04/2022 Priority: Medium Alcohol abuse 07/11/2022 Priority: Medium Polysubstance use disorder 03/16/2022 Priority: Medium Cocaine abuse (HCC) 03/16/2022 Priority: Medium Elevated liver enzymes 03/16/2022 Priority: Medium Panic disorder 03/16/2022 Priority: Medium Hematemesis of unknown etiology 12/13/2023 GERD (gastroesophageal reflux disease) 06/06/2018 Hypertension 06/06/2018 SVT (supraventricular tachycardia) (HCC) 06/06/2018 Tourette syndrome 06/06/2018 Alcohol induced acute pancreatitis without necrosis or infection 03/29/2018 Social History Tobacco Use Smoking status: Every Day Current packs/day: 1.00 Types: Cigarettes Smokeless tobacco: Never Substance Use Topics Alcohol use: Not Currently Comment: former 2/5 vodka daily. Sober since april 2024 Family History[3] Objective BP 120/75 Pulse 72 Temp 36.1 C (97 F) Ht 6' 1 (1.854 m) Wt 201 lb 3.2 oz (91.3 kg) SpO2 98% BMI 26.55 kg/m Physical Exam Data Reviewed and Summarized Labs: Lab Results Component Value Date WBC 6.8 07/02/2024 HGB 13.2 07/02/2024 HCT 39.6 (L) 07/02/2024 MCV 91.0 07/02/2024 PLT 295 07/02/2024 Lab Results Component Value Date FERRITIN 108 2024 Lab Results Component Value Date GLUCOSE 77 10/12/2024 CALCIUM 9.2 10/12/2024 NA 135 (L) 10/12/2024 K 4.1 10/12/2024 CO2 28 10/12/2024 CL 100 10/12/2024 BUN 5 (L) 10/12/2024 CREATININE 0.64 (L) 10/12/2024 Lab Results Component Value Date ALT 34 10/12/2024 AST 122 (H) 10/12/2024 ALKPHOS 224 (H) 10/12/2024 BILITOT 1.7 (H) 10/12/2024 Component Latest Ref Rng 07/02/2024 07/15/2024 2024 Tissue Transglutaminase, IgA <15.0 U/mL <0.5 Deam Gliadin Peptide IgA <15.0 U/ml 3.1 Tissue Transglutaminase, IgG <15.0 U/mL 1.1 Deam Gliadin Peptide IgG <15.0 U/ml 0.8 Protime 9.0 - 12.0 s 14.6 (H) INR 0.9 - 1.1 1.4 (H) REMINGTON Titer <1:80 titer <1:80 TRIGLYCERIDES <150 mg/dL 131 CALCIUM 8.6 - 10.3 mg/dL 8.8 ESR, POC 0 - 10 mm/hr 50 (H) Immunoglobulin G Subclass 4 4.0 - 86.0 mg/dL 25.7 LIVER-KID MICROSOME-1 AB, IGG BY BERENICE 0.0 - 24.9 U 2.2 HEPATITIS C VIRUS AB Not Detected Not Detected HEPATITIS B VIRUS SURFACE AG Not Detected Not Detected Hepatitis B Core Ab Total Nonreactive Nonreactive HEPATITIS B VIRUS SURFACE AB mIU/mL <8.0 FERRITIN 22 - 275 ng/mL 108 SMOOTH MUSCLE AB SCREEN NEGATIVE NEGATIVE Alpha 1 Antitrypsin 83 - 199 mg/dL 253 (H) Mitochondrial Ab Screen Negative Negative Legend: (H) High Lab Results Component Value Date INR 1.4 (H) 2024 INR 1.1 04/04/2024 INR 1.1 01/21/2024 PROTIME 14.6 (H) 2024 PROTIME 12.8 (H) 04/04/2024 PROTIME 12.4 (H) 01/21/2024 MELD 3.0: 10 at 04/06/2024 2:44 AM MELD-Na: 9 at 04/06/2024 2:44 AM Calculated from: Serum Creatinine: 0.57 mg/dL (Using min of 1 mg/dL) at 04/06/2024 2:44 AM Serum Sodium: 138 mmol/L (Using max of 137 mmol/L) at 04/06/2024 2:44 AM Total Bilirubin: 1.5 mg/dL at 04/06/2024 2:44 AM Serum Albumin: 3 g/dL at 04/06/2024 2:44 AM INR(ratio): 1.1 at 04/04/2024 9:55 AM Age at listing (hypothetical): 38 years Sex: Male at 04/06/2024 2:44 AM Imaging/Testing: Fibroscan 2024 Impression Considering the patient's history of alcohol and substance abuse BMI: 25 ETOH use: noted that he quit 04/2024 Hep B & C status neg LFT's: elevated 1). 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 Liver Fat Estimation: Patient had median Controlled Attenuation Parameter (CAP score) of 324 decibels/m (dB/m) consistent with Liver Steatosis Stage S 3- severe steatosis/advanced fatty infiltration over 67% of liver Interpretation: The CAP score is measured in decibels per meter (Db/m). It ranges from 100 to 400 Db/m. The table below shows ranges of CAP scores and the matching steatosis grade and amount of fatty change. Cap Score Steatosis Grade Amount of Liver with Fatty Change 238-260 dB/m S1 11 to 33% 260 to 290 Db/m S2 34 to 66% Higher than 290 Db/M S3 67% or more Your fibrosis result is a measurement of the amount of scarring in your liver. FibroScan measures scarring by measuring the stiffness of your liver. The fibrosis result is measured in kilopascals (kPa) It's normally between 2 and 6 kPa. The highest possible result is 75 kPa. Many people with liver disease(s) have a result that's higher than the normal range. Your healthcare provider will use your FibroScan fibrosis result and your medical history to determine your fibrosis score. Fibrosis score F0 to F1: No liver scarring or mild liver scarring Fibrosis score F2: Moderate liver scarring Fibrosis score F3: Severe liver scarring Fibrosis score F4: Advanced liver scarring (cirrhosis) Exam Date/Time: 06/20/2024 13:29 Procedure: MR ABDOMEN W AND WO CONTRAST Ordering Provider: HARTLEY JENNIFER Reason For Exam: pancreatitis EXAM: MR Abdomen Without and With Intravenous Contrast CLINICAL INDICATION: pancreatitis. Acute pancreatitis without necrosis or infection. TECHNIQUE: Multiplanar magnetic resonance images of the abdomen without and with intravenous contrast. COMPARISON: Several prior studies dating back to ultrasound abdomen 10/16/2023. FINDINGS: Limitations: Respiratory motion artifact on a few sequences. Liver: Mildly enlarged measuring about 20 cm craniocaudal. No overt contour nodularity. Diffuse hepatic steatosis. Liver demonstrates a reticular enhancement pattern without discrete lesion. Gallbladder and bile ducts: Gallbladder appears within normal limits. No intrahepatic or extra hepatic biliary ductal dilatation. Pancreas: Pancreas is heterogeneous with loss of intrinsic T1 signal. Pancreas appears mildly edematous. Mild peripancreatic stranding/fluid particularly at the level of the lesser sac and anterior left pararenal space.. Pancreas demonstrates fairly homogeneous enhancement. No peripancreatic fluid collection is identified. There is luminal irregularity/beading involving the main pancreatic duct. Pancreatic duct measures up to 3 mm the level of the pancreatic neck. No discrete cut off. No pancreatic divisum. Spleen: Spleen is enlarged measuring at least 16.1 cm AP. Spleen demonstrates homogeneous enhancement. Adrenals: Within normal limits. Kidneys and ureters: Kidneys symmetrically enhance. No hydronephrosis. A few small simple cysts which do not require specific follow-up. Stomach and bowel: There is wall thickening and enhancement involving portions of stomach and proximal small bowel and to lesser extent hepatic flexure/proximal transverse colon. Findings are likely reactive. Intraperitoneal space: Trace perihepatic and perisplenic ascites. Prominent and mildly enlarged gastrohepatic, periportal, peripancreatic lymph nodes probably reactive. Vasculature: Normal caliber abdominal aorta. Major venous structures enhance normally. Bones/joints: Osseous structures appear intact. IMPRESSION: 1. Mild residual acute pancreatitis. Degree inflammation slightly diminished from 06/12/2024. No evidence of pancreatic necrosis or abscess. 2. Pancreatic duct is upper limits of normal measuring up to 3 mm the level the pancreatic neck without discrete cut off or pancreatic divisum. Luminal irregularity/beading from prior pancreatitis. 3. Splenomegaly. 4. Mildly enlarged liver with diffuse hepatic steatosis/early hepatocellular disease. No contour nodularity. 5. Trace upper abdominal ascites. Report Dictated on Electronically Signed By: Arturo Peck MD Electronically Signed Date/Time: 06/21/2024 3:11 PM EDT Exam Date/Time: 05/30/2024 22:45 Procedure: CT ABDOMEN PELVIS WO IV CONTRAST Ordering Provider: DURBIN MEJGON Reason For Exam: left flank pain, concern for kidney stone EXAMINATION: CT of the abdomen and pelvis without contrast. EXAM DATE & TIME: 05/30/2024 10:45 PM EDT INDICATION: left flank pain, concern for kidney stone ADDITIONAL INFORMATION: 38-year-old male with left flank pain and concern for renal calculus presents for evaluation COMPARISON: CT abdomen pelvis dated 05/22/2024 LIMITATIONS: Evaluation of the vasculature as well as the solid and hollow viscera is limited due to the lack of intravenous and oral contrast. TECHNIQUE: Contiguous multiplanar 3 mm images were obtained from the levels of the lung bases through the pelvis without contrast. Images were reformatted in coronal and sagittal projections using the raw CT data and were interpreted in conjunction with the axial images to render the findings listed below. Dose reduction was employed with automated exposure control. FINDINGS: Included images of the lower thorax: No focal lung consolidation or pleural effusion. Hepatobiliary: The liver is enlarged and steatotic. No significant intrahepatic ductal dilatation. Gallbladder sludge is noted. Spleen: Unremarkable. Pancreas: Hazy infiltration surrounds the pancreas, similar compared to the prior study. Adrenal glands: Unremarkable. Kidneys, ureters and bladder: No hydronephrosis or nephrolithiasis. The urinary bladder is unremarkable in appearance. Abdominal and pelvic vasculature: Unremarkable. Gastrointestinal: A couple scattered colonic diverticula are seen without surrounding inflammatory change. There is no evidence of bowel obstruction. The appendix is surgically absent. Peritoneum, retroperitoneum and mesentery: Inflammatory changes surround the pancreas and left paracolic gutter. No free fluid or free air. Lymph nodes: No abdominal or pelvic lymphadenopathy is evident. Solid pelvic viscera: Unremarkable. Visualized musculoskeletal structures: No acute fracture or destructive osseous lesion is identified. IMPRESSION: 1. Peripancreatic haziness is redemonstrated, which can be seen in the setting of acute pancreatitis. Correlation with appropriate laboratory values is recommended. 2. Hepatomegaly and hepatic steatosis. Report Dictated on Electronically Signed By: Hitesh aNtion MD Electronically Signed Date/Time: 05/30/2024 11:03 PM EDT EGD 12/14/2023 1:37 PM Gender: Male Date of : 1985 Age: 38 Admit Type: Inpatient Note Status: Finalized Endoscopist: Hari Kline MD, [id number] Procedure: Upper GI endoscopy Indications: Hematemesis Findings: LA Grade D (one or more mucosal breaks involving at least 75% of esophageal circumference) esophagitis with no bleeding was found. Biopsies were taken with a cold forceps for histology. A medium-sized hiatal hernia was present. The cardia and gastric fundus were normal on retroflexion. Moderate portal hypertensive gastropathy was found in the entire examined stomach. Patchy mild inflammation was found in the gastric antrum. Biopsies were taken with a cold forceps for histology. The examined duodenum was normal. Impression: - LA Grade D reflux esophagitis with no bleeding. Biopsied. - Medium-sized hiatal hernia. - Portal hypertensive gastropathy. - Gastritis. Biopsied. - Normal examined duodenum. Recommendation: - Patient has a contact number available for emergencies. The signs and symptoms of potential delayed complications were discussed with the patient. Return to normal activities tomorrow. Written discharge instructions were provided to the patient. - Resume previous diet. - Continue present medications. - GI will sign off - Keep on PPI and may add carafate - [facility] - Advance diet as tolerated - Advised patient to stop drinking alcohol. Guillermo Mon PA-C 1:00 PM 11/01/24 [1] No Known Allergies [2] Current Outpatient Medications: calcium carbonate (Tums) 500 MG chewable tablet, Chew 1 tablet (500 mg) 3 times daily as needed forheartburn., Disp: 30 tablet, Rfl: 0 cloNIDine (Catapres) 0.1 MG tablet, Take 0.1 mg by mouth 2 times daily., Disp: , Rfl: doxylamine (Unisom) 25 MG tablet, Take 1 tablet (25 mg) by mouth Nightly as needed for sleep., Disp: 30 tablet, Rfl: 0 hydrOXYzine HCl (Atarax) 50 MG tablet, Take 1 tablet (50 mg) by mouth every 8 hours as needed for itching., Disp: 90 tablet, Rfl: 0 methocarbamol (Robaxin) 500 MG tablet, Take 1 tablet (500 mg) by mouth 2 times daily for 10 days., Disp: 20 tablet, Rfl: 0 metoprolol succinate XL (Toprol-XL) 50 MG 24 hr tablet, Take 1 tablet (50 mg) by mouth daily. Do not crush or chew., Disp: 30 tablet, Rfl: 1 ondansetron ODT (Zofran-ODT) 4 MG disintegrating tablet, Take 1 tablet (4 mg) by mouth every 8 hours as needed for nausea or vomiting., Disp: 15 tablet, Rfl: 0 ondansetron ODT (Zofran-ODT) 4 MG disintegrating tablet, Take 1 tablet (4 mg) by mouth every 8 hours as needed for nausea or vomiting., Disp: 15 tablet, Rfl: 0 oxyCODONE (Roxicodone) 5 MG immediate release tablet, Take 1 tablet (5 mg) by mouth every 8 hours as needed for severe pain (7-10)., Disp: 12 tablet, Rfl: 0 oxyCODONE (Roxicodone) 5 MG immediate release tablet, Take 1 tablet (5 mg) by mouth every 8 hours as needed for severe pain (7-10)., Disp: 10 tablet, Rfl: 0 pantoprazole (ProtoNix) 40 MG EC tablet, Take 1 tablet (40 mg) by mouth 2 times daily (before meals). Do not crush, chew, or split., Disp: 60 tablet, Rfl: 0 pantoprazole (ProtoNix) 40 MG EC tablet, Take 1 tablet (40 mg) by mouth every morning (before breakfast). Do not crush, chew, or split., Disp: 30 tablet, Rfl: 0 risperiDONE (RisperDAL) 1 MG tablet, Take 1 tablet (1 mg) by mouth 2 times daily., Disp: 60 tablet,Rfl: 3 folic acid (Folvite) 1 MG tablet, Take 1 tablet (1 mg) by mouth daily. (Patient not taking: Reported on 11/01/2024), Disp: 30 tablet, Rfl: 1 senna-docusate sodium (Senokot-S) 8.6-50 MG tablet, Take 2 tablets by mouth daily., Disp: 60 tablet, Rfl: 11 thiamine (Vitamin B1) 100 MG tablet, Take 1 tablet (100 mg) by mouth daily., Disp: 30 tablet, Rfl: 1 venlafaxine XR (Effexor XR) 75 MG 24 hr capsule, Take 1 capsule (75 mg) by mouth daily (with breakfast). Do not crush or chew. (Patient not taking: Reported on 11/01/2024), Disp: 30 capsule, Rfl: 1 [3] Family History Problem Relation Name Age of Onset No Known Problems Mother No Known Problems Father [facility]09-23-2025 Instructions* Patient Instructions* Hattie Law MA - 11/01/2024 9:00 AM EDT --Please call office with any questions or concerns! [phone] --Schedule EGD (upper endoscopy) for varices screening, follow up of esophagitis. --Continue Pantoprazole 40 mg daily. --Obtain additional blood work for further evaluation of the symptoms. --Continue to abstain from alcohol. --Please see handout provided regarding additional information. --Follow-up with PCP, and in GI clinic in about 6 months. * Attachments The following attachments cannot be sent through Care Everywhere. * Upper GI Endoscopy ([place]) documented in this [facility]09-09-2025 Telephone encounter Note* Telephone Encounter - Steph Garcia - 10/18/2024 10:48 AM EDT Pt has an appointment on 11/15 will schedule at that time. [id number] Miscellaneous Notes* Telephone Encounter - Steph Garcia - 10/18/2024 10:48 AM EDT Pt has an appointment on 11/15 will schedule at that time. * Telephone Encounter - Aydee Martinez - 10/17/2024 8:17 AM EDT LOWER PARTIAL, FULL UPPER AND RUBIN REMOVAL APPROVED. PLEASE SCHEDULE. documented in this [facility]09-08-2025 Telephone encounter Note* Telephone Encounter - Aydee Martinez - 10/17/2024 8:17 AM EDT LOWER PARTIAL, FULL UPPER AND RUBIN REMOVAL APPROVED. PLEASE SCHEDULE. [facility] [id number] History of Present illness Narrative* Lauren Alla Perez, DDS - 10/04/2024 4:00 PM EDT Procedure Details 20 D0220 - ME INTRAORAL - PERIAPICAL FIRST RADIOGRAPHIC IMAGE 23 D0220 - ME INTRAORAL - PERIAPICAL FIRST RADIOGRAPHIC IMAGE 25 D0220 - ME INTRAORAL - PERIAPICAL FIRST RADIOGRAPHIC IMAGE 27 D0220 - ME INTRAORAL - PERIAPICAL FIRST RADIOGRAPHIC IMAGE D0150 - ME COMPREHENSIVE ORAL EVALUATION - NEW OR ESTABLISHED PATIENT Subjective Patient ID: Roro Valdivia is a 39 y.o. male. Chief Complaint Patient presents with Other Comprehensive exam and xrays. P: Patient presents for comprehensive exam. Chief complaint of Chief Complaint Patient presents with Other Comprehensive exam and xrays. . Patient . Reviewed med history, significant for Chronic liver disease. Patient expressed having advanced stage of liver disease and he was given about 8 years to live.. Patient's charts reviewed, no records Patient does not take premedication. BP: Not taken. ASA Classification: ASA 4 - Patient with severe systemic disease that is a constant threat to life T: Extraoral exam: WNL Intraoral exam: - Right cheek: WNL - Left cheek: WNL - Floor of the mouth.: WNL - Hard palate: WNL, large palattal torus requiring removal before maxillary denture fabrication - Soft palate: WNL - Tongue: WNL Teeth - # present: 11 - # root tips: 0 Occlusion type - - Crossbite: No crossbite Caries Risk: Low High - Discussed caries risk habits. - Oral hygiene impression: Poor, heavy staining with plaque and calculus deposits - Discussed oral hygiene. Periodontal screening not completed. Probe depths, will be fully assessed asfter extractions. Limited probing shows maximum reading 5mm Periodontal Classification: II- Chronic periodontitis, localized Radiographs taken: JOSE DE LA ROSA'antoine (4) Radiographic interpretation: Severe caries observed on all teeth. Matches clinical appearance/ Restorability of the individual teeth discussed with patient. It was determined the only restorableteeth are #28, #27, #22, #20. Other remaining teeth to be extracted. Palatal torus removal and Bilateral lingual rubin removal planned. Discussed treatment plan with patient List in order of Treatment needed: 1.Extraction 2. Prophy 3.Roman 4. Denture fabrication Pre Authorizations needed: Medical Consult needed: No Premed needed: Patient agrees to treatment as presented. Next visit: Extractions E: Patient tolerated treatment well. Lauren Perez DDS 4:42 PM 10/04/24 * Christo Beltran DDS - 10/04/2024 4:00 PM EDT I discussed the patient with the resident prior to treatment. I was available for consultation and/or directly participated in care. We agree with the treatment provided and the notations made. Christo Beltran DDS 10/04/24 5:04 PM documented in this [facility]08-26-2025 History of Present illness Narrative* Lauren Perez DDS - 10/04/2024 4:00 PM EDT Procedure Details 20 D0230 - ME INTRAORAL - PERIAPICAL EACH ADDITIONAL RADIOGRAPHIC IMAGE 23 D0230 - ME INTRAORAL - PERIAPICAL EACH ADDITIONAL RADIOGRAPHIC IMAGE 25 D0230 - ME INTRAORAL - PERIAPICAL EACH ADDITIONAL RADIOGRAPHIC IMAGE 27 D0220 - ME INTRAORAL - PERIAPICAL FIRST RADIOGRAPHIC IMAGE D0150 - ME COMPREHENSIVE ORAL EVALUATION - NEW OR ESTABLISHED PATIENT Subjective Patient ID: Roro Valdivia is a 39 y.o. male. Chief Complaint Patient presents with Other Comprehensive exam and xrays. P: Patient presents for comprehensive exam. Chief complaint of Chief Complaint Patient presents with Other Comprehensive exam and xrays. . Patient . Reviewed med history, significant for Chronic liver disease. Patient expressed having advanced stage of liver disease and he was given about 8 years to live.. Patient's charts reviewed, no records Patient does not take premedication. BP: Not taken. ASA Classification: ASA 4 - Patient with severe systemic disease that is a constant threat to life T: Extraoral exam: WNL Intraoral exam: - Right cheek: WNL - Left cheek: WNL - Floor of the mouth.: WNL - Hard palate: WNL, large palattal torus requiring removal before maxillary denture fabrication - Soft palate: WNL - Tongue: WNL Teeth - # present: 11 - # root tips: 0 Occlusion type - - Crossbite: No crossbite Caries Risk: Low High - Discussed caries risk habits. - Oral hygiene impression: Poor, heavy staining with plaque and calculus deposits - Discussed oral hygiene. Periodontal screening not completed. Probe depths, will be fully assessed asfter extractions. Limited probing shows maximum reading 5mm Periodontal Classification: II- Chronic periodontitis, localized Radiographs taken: JOSE DE LA ROSA'antoine (4) Radiographic interpretation: Severe caries observed on all teeth. Matches clinical appearance/ Restorability of the individual teeth discussed with patient. It was determined the only restorableteeth are #28, #27, #22, #20. Other remaining teeth to be extracted. Palatal torus removal and Bilateral lingual rubin removal planned. Discussed treatment plan with patient List in order of Treatment needed: 1.Extraction 2. Prophy 3.Roman 4. Denture fabrication Pre Authorizations needed: Medical Consult needed: No Premed needed: Patient agrees to treatment as presented. Next visit: Extractions E: Patient tolerated treatment well. Lauren Perez DDS 4:42 PM 10/05/24 * Christo Beltran DDS - 10/04/2024 4:00 PM EDT I discussed the patient with the resident prior to treatment. I was available for consultation and/or directly participated in care. We agree with the treatment provided and the notations made. Christo Beltran DDS 10/04/24 5:04 PM documented in this [facility]08-26-2025 NoteI discussed the patient with the resident prior to treatment. I was available for consultation and/or directly participated in care. We agree with the treatment provided and the notations made. Christo Beltran, ERVIN 10/04/24 5:04 [facility]08-25-2025 Note* Addendum Note - Guillermo Mon PA-C - 10/03/2024 5:01 PM EDTAddended by: GUILLERMO MON on: 10/03/2024 05:01 PM Modules accepted: Orders [facility] [id number] Note* Addendum Note - Guillermo Mon PA-C - 10/03/2024 5:01 PM EDTAddended by: GUILLERMO MON on: 10/03/2024 05:01 PM Modules accepted: Orders [facility] [id number] Note* Addendum Note - Guillermo Mon PA-C - 10/03/2024 5:01 PM EDTAddended by: GUILLERMO MON on: 10/03/2024 05:01 PM Modules accepted: Orders [facility] [id number] Progress note* Result Encounter Note - Guillermo Mon PA-C - 10/03/2024 5:01 PM EDT Call Roro. Went over fibroscan. INR ordered. Will also order CMP. Continue with appointment 11/01/2024. [id number] Miscellaneous Notes* Addendum Note - Guillermo Mon PA-C - 10/03/2024 5:01 PM EDTAddended by: GUILLERMO MON on: 10/03/2024 05:01 PM Modules accepted: Orders * Result Encounter Note - Guillermo Mon PA-C - 10/03/2024 5:01 PM EDT Call Roro. Went over fibroscan. INR ordered. Will also order CMP. Continue with appointment 11/01/2024. * Telephone Encounter - Marcelina Hernandez MA - 10/03/2024 1:45 PM EDT Pt lvm requesting callback. Spoke with Pt he is requesting call to go over Fibroscan results prior to his appt. Pt is very worried about his results. * Telephone Encounter - Afshin Dubose - 10/03/2024 10:05 AM EDT Patient called and lvm for office trying to get results of his liver test. Upon review Guillermo stauffer patient results will be gone over in November during his OV. Thanks * Result Encounter Note - Guillermo Mon PA-C - 2024 2:05 PM EDT Will review Fibroscan with Roro 11/15/2024. Recommend to complete blood work as ordered by Eric Hartley. documented in this encounterSDayton Children's [id number] Telephone encounter Note* Telephone Encounter - Marcelina Hernandez MA - 10/03/2024 1:45 PM EDT Pt lvm requesting callback. Spoke with Pt he is requesting call to go over Fibroscan results prior to his appt. Pt is very worried about his results. [facility] [id number] Telephone encounter Note* Telephone Encounter - Afshin Dubose - 10/03/2024 10:05 AM EDT Patient called and lvm for office trying to get results of his liver test. Upon review Guillermo stauffer patient results will be gone over in November during his OV. Thanks [facility] [id number] Progress note* Result Encounter Note - Guillermo Mon PA-C - 2024 2:05 PM EDT Will review Fibroscan with Roro 11/15/2024. Recommend to complete blood work as ordered by Eric Hartley. [facility] [id number] Telephone encounter Note* Telephone Encounter - Steph Garcia - 08/31/2024 10:05 AM EDT Pt has appointment on 09/07 will schedule at that time. [facility] [id number] Miscellaneous Notes* Telephone Encounter - Steph Garcia - 08/31/2024 10:05 AM EDT Pt has appointment on 09/07 will schedule at that time. * Telephone Encounter - Aydee Martinez - 08/29/2024 10:30 AM EDT UPPER DENTURE APPROVED. PLEASE SCHEDULE documented in this encounterSDayton Children's [id number] Telephone encounter Note* Telephone Encounter - Aydee Martinez - 08/29/2024 10:30 AM EDT UPPER DENTURE APPROVED. PLEASE SCHEDULE [facility] [id number] History of Present illness Narrative* Lauren Perez, PRIYAS - 08/24/2024 3:00 PM EDT Procedure Details 4 D0220 - ME INTRAORAL - PERIAPICAL FIRST RADIOGRAPHIC IMAGE 4 D7140 - ME EXTRACTION, ERUPTED TOOTH OR EXPOSED ROOT (ELEVATION AND/OR FORCEPS REMOVAL) 6 D7140 - ME EXTRACTION, ERUPTED TOOTH OR EXPOSED ROOT (ELEVATION AND/OR FORCEPS REMOVAL) 13 D7140 - ME EXTRACTION, ERUPTED TOOTH OR EXPOSED ROOT (ELEVATION AND/OR FORCEPS REMOVAL) D0330 - ME PANORAMIC RADIOGRAPHIC IMAGE Subjective Patient ID: Roro Valdivia is a 38 y.o. male. No chief complaint on file. Procedure: Surgical & simple extractions of teeth #4, #6, #13 Anesthesia Administered 2 carpules of 2%?lidocaine with epinephrine via local infiltration and palatal infiltration Findings & Procedure Teeth #4 and #6 were severely decayed and removed using standard extraction techniques. Tooth #13 fractured intraoperatively; the root tip was retained. Surgical removal performed with a high-speed handpiece to remove interfurcal bone and access the fragment. After root retrieval, careful irrigation ensured socket cleanliness. Hemostasis & Closure A collagen plug was placed into the #13 extraction socket . Three resorbable sutures were used to approximate flaps, ensuring stability and optimal healing. Outcome & Instructions Hemostasis achieved; patient tolerated procedure well. Post-op instructions provided, including: Pressure pack & limit disturbance of clot Pain management and soft diet guidelines Instructed to avoid smoking. Signs of complications (excessive bleeding, swelling, persistent pain) Plan: Routine follow-up in 5-7 days for suture check. Additional treatment planning to address remaining dentition as indicated. Continuation of smoking cessation efforts Prescriptions ordered: acetaminophen (Tylenol) 500 MG tablet Take 2 tablets (1,000 mg) by mouth every 6 hours as needed for mild pain (1-3) for up to 10 days., Starting Thu08/24/2024, Until 09/03/2024 at 2359 ibuprofen 600 MG tablet Take 1 tablet (600 mg) by mouth every 6 hours as needed for mild pain (1-3) for up to 10 days., Starting Thu08/24/2024, Until 09/03/2024 at 2359 documented in this [facility]07-16-2025 History of Present illness Narrative* Lauren Perez DDS - 08/24/2024 3:00 PM EDT Procedure Details 4 D0220 - ME INTRAORAL - PERIAPICAL FIRST RADIOGRAPHIC IMAGE 4 D7140 - ME EXTRACTION, ERUPTED TOOTH OR EXPOSED ROOT (ELEVATION AND/OR FORCEPS REMOVAL) 6 D7140 - ME EXTRACTION, ERUPTED TOOTH OR EXPOSED ROOT (ELEVATION AND/OR FORCEPS REMOVAL) 13 D7140 - ME EXTRACTION, ERUPTED TOOTH OR EXPOSED ROOT (ELEVATION AND/OR FORCEPS REMOVAL) D0330 - ME PANORAMIC RADIOGRAPHIC IMAGE Subjective Patient ID: Roro Valdivia is a 38 y.o. male. No chief complaint on file. Procedure: Surgical & simple extractions of teeth #4, #6, #13 Anesthesia Administered 2 carpules of 2%?lidocaine with epinephrine via local infiltration and palatal infiltration Findings & Procedure Teeth #4 and #6 were severely decayed and removed using standard extraction techniques. Tooth #13 fractured intraoperatively; the root tip was retained. Surgical removal performed with a high-speed handpiece to remove interfurcal bone and access the fragment. After root retrieval, careful irrigation ensured socket cleanliness. Hemostasis & Closure A collagen plug was placed into the #13 extraction socket . Three resorbable sutures were used to approximate flaps, ensuring stability and optimal healing. Outcome & Instructions Hemostasis achieved; patient tolerated procedure well. Post-op instructions provided, including: Pressure pack & limit disturbance of clot Pain management and soft diet guidelines Instructed to avoid smoking. Signs of complications (excessive bleeding, swelling, persistent pain) Plan: Routine follow-up in 5-7 days for suture check. Additional treatment planning to address remaining dentition as indicated. Continuation of smoking cessation efforts Prescriptions ordered: acetaminophen (Tylenol) 500 MG tablet Take 2 tablets (1,000 mg) by mouth every 6 hours as needed for mild pain (1-3) for up to 10 days., Starting Thu08/24/2024, Until 09/03/2024 at 2359 ibuprofen 600 MG tablet Take 1 tablet (600 mg) by mouth every 6 hours as needed for mild pain (1-3) for up to 10 days., Starting 08/24/2024, Until 09/03/2024 at 2359 * Vamshi Moncada DDS - 08/24/2024 3:00 PM EDT I reviewed with the resident the medical history and the resident s findings on physical examination. I discussed with the resident the patient s diagnosis and concur with the treatment plan as documented in the resident note. Vamshi Moncada DDS documented in this [facility]07-15-2025 History of Present illness Narrative* Seema Hartley, JOSÉ ANTONIO - COREMAKER MACHINE - 08/23/2024 11:00 AM EDT Images from the original note were not included. [facility] - [address] [facility] [address] Dept: [phone] Dept Loc: [phone] Visit type: New Reason for Visit: Follow-up ( discuss mri and labs, known pancreatitis - wishing to see samira before she leaves) PCP: Tam Hughes, DO Assessment and Plan Diagnosis Plan 1. Alcohol induced acute pancreatitis without necrosis or infection 2. Elevated liver enzymes Antimitochondrial antibody [place] Yvhns-3-Iphvksqewlb, Quantitative Smooth muscle antibody with reflex Titer Celiac Panel Ferritin Hepatitis B surface antibody Hepatitis B Core Antibody, Total Hepatitis B surface antigen Hepatitis C antibody Liver-Kidney Microsome 1 Ab Protime-INR Fibroscan Antimitochondrial antibody [place] [id number], Quantitative Smooth muscle antibody with reflex Titer Celiac Panel Ferritin Hepatitis B surface antibody Hepatitis B Core Antibody, Total Hepatitis B surface antigen Hepatitis C antibody Liver-Kidney Microsome 1 Ab Protime-INR --Patient is followed for polysubstance abuse including (previous vodka, cocaine, meth, oxycodon, fentanyl, heroin, benzodiazapine) IVDU, EtOH abuse, recurrent pancreatitis, HTN, GERD, EtOH withdrawal related seizures. Multiple hospital admissions and ED visits for same. Last hospitalization 04/16/2024; last ED visit 07/02/2024. --Struggles to remain alcohol free due to severe panic attacks. Following with psychiatry --blood work to be completed --fibroscan --complete alcohol abstinence is recommended --diet recommendations printed for review --follow up in 2 months No follow-ups on file. Advised patient to call office with new or worsening symptoms, questions, or concerns. Patient verbalized understanding and agreement of plan. Subjective HPI Patient is followed for polysubstance abuse including (previous vodka, cocaine, meth, oxycodon, fentanyl, heroin, benzodiazapine) IVDU, EtOH abuse, recurrent pancreatitis, HTN, GERD, EtOH withdrawal related seizures. Multiple hospital admissions and ED visits for same. Last hospitalization 04/16/2024; last ED visit 07/02/2024. Patient presents for ED follow up for acute pancreatitis. Has c/o anxiety and tourette's- drinks alcohol for relief. Having 1-2 drinks every 4 days; current daily cigarettes. Currently has zero pain.Admits to poor appetite and early satiety. Struggles to remain alcohol free due to severe panic attacks. Following with psychiatry. Current related work up: multiple Cts, MRI Current GI medications: pantoprazole, promethazine and senokot EGD no Colonoscopy no Antiplatelet no Anticoag no NSAIDS no Supplemental oxygen no CV/Pulm disease no Family history of colon cancer: unknown- mother adopted; unknown father? Personal history of colon polyps or colon cancer: no Pertinent Surgical history: appe Wt Readings from Last 10 Encounters: 07/02/24 210 lb (95.3 kg) 06/26/24 210 lb (95.3 kg) 06/19/24 220 lb (99.8 kg) 06/18/24 210 lb (95.3 kg) 06/12/24 220 lb (99.8 kg) 06/04/24 225 lb (102 kg) 06/01/24 225 lb 12.8 oz (102 kg) 05/30/24 250 lb (113 kg) 05/07/24 250 lb (113 kg) 04/16/24 245 lb (111 kg) Review of Systems Constitutional: Negative for activity change, appetite change and unexpected weight change. HENT: Negative for trouble swallowing and voice change. Respiratory: Negative for cough and choking. Cardiovascular: Negative for chest pain. Gastrointestinal: Negative for abdominal distention, abdominal pain, anal bleeding, blood in stool,constipation, diarrhea, nausea, rectal pain and vomiting. Psychiatric/Behavioral: The patient is nervous/anxious. No Known Allergies Current Outpatient Medications: calcium carbonate (Tums) 500 MG chewable tablet, Chew 1 tablet (500 mg) 3 times daily as needed forheartburn., Disp: 30 tablet, Rfl: 0 cloNIDine (Catapres) 0.1 MG tablet, Take 0.1 mg by mouth 2 times daily., Disp: , Rfl: folic acid (Folvite) 1 MG tablet, Take 1 tablet (1 mg) by mouth daily., Disp: 30 tablet, Rfl: 1 metoprolol succinate XL (Toprol-XL) 50 MG 24 hr tablet, Take 1 tablet (50 mg) by mouth daily. Do not crush or chew., Disp: 30 tablet, Rfl: 1 ondansetron ODT (Zofran-ODT) 4 MG disintegrating tablet, Take 1 tablet (4 mg) by mouth every 8 hours as needed for nausea or vomiting., Disp: 15 tablet, Rfl: 0 ondansetron ODT (Zofran-ODT) 4 MG disintegrating tablet, Take 1 tablet (4 mg) by mouth every 8 hours as needed for nausea or vomiting., Disp: 15 tablet, Rfl: 0 oxyCODONE (Roxicodone) 5 MG immediate release tablet, Take 1 tablet (5 mg) by mouth every 8 hours as needed for severe pain (7-10)., Disp: 12 tablet, Rfl: 0 oxyCODONE (Roxicodone) 5 MG immediate release tablet, Take 1 tablet (5 mg) by mouth every 8 hours as needed for severe pain (7-10)., Disp: 10 tablet, Rfl: 0 pantoprazole (ProtoNix) 40 MG EC tablet, Take 1 tablet (40 mg) by mouth 2 times daily (before meals). Do not crush, chew, or split., Disp: 60 tablet, Rfl: 0 risperiDONE (RisperDAL) 1 MG tablet, Take 1 tablet (1 mg) by mouth 2 times daily., Disp: 60 tablet,Rfl: 3 senna-docusate sodium (Senokot-S) 8.6-50 MG tablet, Take 2 tablets by mouth daily., Disp: 60 tablet, Rfl: 11 thiamine (Vitamin B1) 100 MG tablet, Take 1 tablet (100 mg) by mouth daily., Disp: 30 tablet, Rfl: 1 doxylamine (Unisom) 25 MG tablet, Take 1 tablet (25 mg) by mouth Nightly as needed for sleep., Disp: 30 tablet, Rfl: 0 hydrOXYzine HCl (Atarax) 50 MG tablet, Take 1 tablet (50 mg) by mouth every 8 hours as needed for itching., Disp: 90 tablet, Rfl: 0 methocarbamol (Robaxin) 500 MG tablet, Take 1 tablet (500 mg) by mouth 2 times daily for 10 days., Disp: 20 tablet, Rfl: 0 pantoprazole (ProtoNix) 40 MG EC tablet, Take 1 tablet (40 mg) by mouth every morning (before breakfast). Do not crush, chew, or split., Disp: 30 tablet, Rfl: 0 venlafaxine XR (Effexor XR) 75 MG 24 hr capsule, Take 1 capsule (75 mg) by mouth daily (with breakfast). Do not crush or chew., Disp: 30 capsule, Rfl: 1 Patient Active Problem List Diagnosis Date Noted Pancreatitis, unspecified pancreatitis type 04/04/2024 Priority: Medium Severe malnutrition (CMS/HCC) ([facility]) 02/06/2024 Priority: Medium Alcohol withdrawal syndrome without complication ([facility]) 02/04/2024 Priority: Medium Alcohol-induced acute pancreatitis, unspecified complication status 01/20/2024 Priority: Medium Alcoholic intoxication without complication (CMS/HCC) ([facility]) 12/13/2023 Priority: Medium Moderate malnutrition (CMS/HCC) ([facility]) 11/20/2023 Priority: Medium Acute pancreatitis without infection or necrosis 11/18/2023 Priority: Medium Acute recurrent pancreatitis 10/16/2023 Priority: Medium Severe opioid use disorder on maintenance therapy (HCC) 08/11/2023 Priority: Medium Severe episode of recurrent major depressive disorder, without psychotic features ([facility]) 08/11/2023 Priority: Medium Severe alcohol use disorder ([facility]) 06/24/2023 Priority: Medium Positive 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 01/07/2023 Priority: Medium History of pancreatitis 01/07/2023 Priority: Medium Benzodiazepine withdrawal with complication (HCC) 11/04/2022 Priority: Medium Opioid withdrawal (HCC) 11/04/2022 Priority: Medium Amphetamine withdrawal (HCC) 11/04/2022 Priority: Medium Pneumonia 11/04/2022 Priority: Medium Palpitations 11/04/2022 Priority: Medium Other specified abnormal findings of blood chemistry 11/04/2022 Priority: Medium Dermatitis 11/04/2022 Priority: Medium Depression 11/04/2022 Priority: Medium Alcohol abuse 07/11/2022 Priority: Medium Polysubstance use disorder 03/16/2022 Priority: Medium Cocaine abuse (HCC) 03/16/2022 Priority: Medium Elevated liver enzymes 03/16/2022 Priority: Medium Panic disorder 03/16/2022 Priority: Medium Hematemesis of unknown etiology 12/13/2023 GERD (gastroesophageal reflux disease) 06/06/2018 Hypertension 06/06/2018 SVT (supraventricular tachycardia) ([facility]) 06/06/2018 Tourette syndrome 06/06/2018 Alcohol induced acute pancreatitis without necrosis or infection 03/29/2018 Past Medical History: Past Medical History: Diagnosis Date Addiction to drug ([facility]) ([facility]) Alcohol abuse Alcohol withdrawal syndrome without complication ([facility]) 06/27/2022 Alcohol withdrawal with inpatient treatment, uncomplicated ([facility]) 03/15/2022 GERD (gastroesophageal reflux disease) History of pancreatitis 01/07/2023 Hypertension Pancreatitis Radial nerve palsy, left Seizures ([facility]) SVT (supraventricular tachycardia) ([facility]) Tourette syndrome Past Surgical History: Past Surgical History: Procedure Laterality Date APPENDECTOMY Social History: Social History Tobacco Use Smoking status: Every Day Current packs/day: 1.00 Types: Cigarettes Smokeless tobacco: Never Substance Use Topics Alcohol use: Not Currently Comment: former 2/5 vodka daily. Sober since april 2024 Family History: Family History Problem Relation Name Age of Onset No Known Problems Mother No Known Problems Father Objective BP 114/62 Pulse 73 Temp (!) 35.8 C (96.4 F) SpO2 97% Physical Exam Constitutional: General: He is not in acute distress. Appearance: Normal appearance. He is not ill-appearing. HENT: Head: Normocephalic and atraumatic. Eyes: General: No scleral icterus. Extraocular Movements: Extraocular movements intact. Conjunctiva/sclera: Conjunctivae normal. Pupils: Pupils are equal, round, and reactive to light. Cardiovascular: Rate and Rhythm: Normal rate and regular rhythm. Heart sounds: Normal heart sounds. No murmur heard. Pulmonary: Effort: Pulmonary effort is normal. No respiratory distress. Breath sounds: Normal breath sounds. Abdominal: General: Abdomen is flat. Bowel sounds are normal. There is no distension. Palpations: Abdomen is soft. There is no mass. Tenderness: There is no abdominal tenderness. There is no guarding or rebound. Hernia: No hernia is present. Musculoskeletal: Cervical back: Neck supple. Right lower leg: No edema. Left lower leg: No edema. Skin: General: Skin is warm and dry. Coloration: Skin is not jaundiced or pale. Neurological: General: No focal deficit present. Mental Status: He is alert. Psychiatric: Mood and Affect: Mood normal. Thought Content: Thought content normal. Data Reviewed and Summarized Labs: Lab Results Component Value Date WBC 6.8 07/02/2024 HGB 13.2 07/02/2024 HCT 39.6 (L) 07/02/2024 MCV 91.0 07/02/2024 PLT 295 07/02/2024 Lab Results Component Value Date LIPASE 75 (H) 06/26/2024 Lab Results Component Value Date ALT 50 (H) 06/19/2024 AST 90 (H) 06/19/2024 ALKPHOS 161 (H) 06/19/2024 BILITOT 1.2 (H) 06/19/2024 Lab Results Component Value Date INR 1.1 04/04/2024 INR 1.1 01/21/2024 INR 1.0 06/24/2023 PROTIME 12.8 (H) 04/04/2024 PROTIME 12.4 (H) 01/21/2024 PROTIME 11.2 06/24/2023 Lab Results Component Value Date TSH 1.316 10/22/2023 No results found for: IRON, TIBC, FERRITIN Lab Results Component Value Date HAV Negative 06/26/2022 HEPAIGM Not Detected 11/23/2023 HEPBIGM Not Detected 11/23/2023 HEPBCAB Negative 06/26/2022 HEPCAB Not Detected 11/23/2023 [id number] Exam Date/Time: 06/20/2024 13:29 Procedure: MR ABDOMEN W AND WO CONTRAST Ordering Provider: HARTLEY JENNIFER Reason For Exam: pancreatitis EXAM: MR Abdomen Without and With Intravenous Contrast CLINICAL INDICATION: pancreatitis. Acute pancreatitis without necrosis or infection. TECHNIQUE: Multiplanar magnetic resonance images of the abdomen without and with intravenous contrast. COMPARISON: Several prior studies dating back to ultrasound abdomen 10/16/2023. FINDINGS: Limitations: Respiratory motion artifact on a few sequences. Liver: Mildly enlarged measuring about 20 cm craniocaudal. No overt contour nodularity. Diffuse hepatic steatosis. Liver demonstrates a reticular enhancement pattern without discrete lesion. Gallbladder and bile ducts: Gallbladder appears within normal limits. No intrahepatic or extra hepatic biliary ductal dilatation. Pancreas: Pancreas is heterogeneous with loss of intrinsic T1 signal. Pancreas appears mildly edematous. Mild peripancreatic stranding/fluid particularly at the level of the lesser sac and anterior left pararenal space.. Pancreas demonstrates fairly homogeneous enhancement. No peripancreatic fluid collection is identified. There is luminal irregularity/beading involving the main pancreatic duct. Pancreatic duct measures up to 3 mm the level of the pancreatic neck. No discrete cut off. No pancreatic divisum. Spleen: Spleen is enlarged measuring at least 16.1 cm AP. Spleen demonstrates homogeneous enhancement. Adrenals: Within normal limits. Kidneys and ureters: Kidneys symmetrically enhance. No hydronephrosis. A few small simple cysts which do not require specific follow-up. Stomach and bowel: There is wall thickening and enhancement involving portions of stomach and proximal small bowel and to lesser extent hepatic flexure/proximal transverse colon. Findings are likely reactive. Intraperitoneal space: Trace perihepatic and perisplenic ascites. Prominent and mildly enlarged gastrohepatic, periportal, peripancreatic lymph nodes probably reactive. Vasculature: Normal caliber abdominal aorta. Major venous structures enhance normally. Bones/joints: Osseous structures appear intact. IMPRESSION: 1. Mild residual acute pancreatitis. Degree inflammation slightly diminished from 06/12/2024. No evidence of pancreatic necrosis or abscess. 2. Pancreatic duct is upper limits of normal measuring up to 3 mm the level the pancreatic neck without discrete cut off or pancreatic divisum. Luminal irregularity/beading from prior pancreatitis. 3. Splenomegaly. 4. Mildly enlarged liver with diffuse hepatic steatosis/early hepatocellular disease. No contour nodularity. 5. Trace upper abdominal ascites. Report Dictated on Electronically Signed By: Arturo Peck MD Electronically Signed Date/Time: 06/21/2024 3:11 PM EDT Patient Name: RORO VALDIVIA : 1985 [facility]#: [id number] Exam Date/Time: 05/30/2024 22:45 Procedure: CT ABDOMEN PELVIS WO IV CONTRAST Ordering Provider: DURBIN MEJGON Reason For Exam: left flank pain, concern for kidney stone EXAMINATION: CT of the abdomen and pelvis without contrast. EXAM DATE & TIME: 05/30/2024 10:45 PM EDT INDICATION: left flank pain, concern for kidney stone ADDITIONAL INFORMATION: 38-year-old male with left flank pain and concern for renal calculus presents for evaluation COMPARISON: CT abdomen pelvis dated 05/22/2024 LIMITATIONS: Evaluation of the vasculature as well as the solid and hollow viscera is limited due to the lack of intravenous and oral contrast. TECHNIQUE: Contiguous multiplanar 3 mm images were obtained from the levels of the lung bases through the pelvis without contrast. Images were reformatted in coronal and sagittal projections using the raw CT data and were interpreted in conjunction with the axial images to render the findings listed below. Dose reduction was employed with automated exposure control. FINDINGS: Included images of the lower thorax: No focal lung consolidation or pleural effusion. Hepatobiliary: The liver is enlarged and steatotic. No significant intrahepatic ductal dilatation. Gallbladder sludge is noted. Spleen: Unremarkable. Pancreas: Hazy infiltration surrounds the pancreas, similar compared to the prior study. Adrenal glands: Unremarkable. Kidneys, ureters and bladder: No hydronephrosis or nephrolithiasis. The urinary bladder is unremarkable in appearance. Abdominal and pelvic vasculature: Unremarkable. Gastrointestinal: A couple scattered colonic diverticula are seen without surrounding inflammatory change. There is no evidence of bowel obstruction. The appendix is surgically absent. Peritoneum, retroperitoneum and mesentery: Inflammatory changes surround the pancreas and left paracolic gutter. No free fluid or free air. Lymph nodes: No abdominal or pelvic lymphadenopathy is evident. Solid pelvic viscera: Unremarkable. Visualized musculoskeletal structures: No acute fracture or destructive osseous lesion is identified. IMPRESSION: 1. Peripancreatic haziness is redemonstrated, which can be seen in the setting of acute pancreatitis. Correlation with appropriate laboratory values is recommended. 2. Hepatomegaly and hepatic steatosis. Report Dictated on Electronically Signed By: Hitesh Nation MD Electronically Signed Date/Time: 05/30/2024 11:03 PM EDT Seema Hartley NP-C 12:26 PM 08/23/24 documented in this [facility]07-15-2025 History of Present illness Narrative* JOSÉ ANTONIO Harrison CNP - 08/23/2024 11:00 AM EDT Images from the original note were not included. [facility] - [address] [facility] [id number] Dept: [phone] Dept Loc: [phone] Visit type: New Reason for Visit: Follow-up ( discuss mri and labs, known pancreatitis - wishing to see samira before she leaves) PCP: Tam Hughes, DO Assessment and Plan Diagnosis Plan 1. Alcohol induced acute pancreatitis without necrosis or infection 2. Elevated liver enzymes Antimitochondrial antibody [place] [id number], Quantitative Smooth muscle antibody with reflex Titer Celiac Panel Ferritin Hepatitis B surface antibody Hepatitis B Core Antibody, Total Hepatitis B surface antigen Hepatitis C antibody Liver-Kidney Microsome 1 Ab Protime-INR Fibroscan Antimitochondrial antibody [place] [id number], Quantitative Smooth muscle antibody with reflex Titer Celiac Panel Ferritin Hepatitis B surface antibody Hepatitis B Core Antibody, Total Hepatitis B surface antigen Hepatitis C antibody Liver-Kidney Microsome 1 Ab Protime-INR --Patient is followed for polysubstance abuse including (previous vodka, cocaine, meth, oxycodon, fentanyl, heroin, benzodiazapine) IVDU, EtOH abuse, recurrent pancreatitis, HTN, GERD, EtOH withdrawal related seizures. Multiple hospital admissions and ED visits for same. Last hospitalization 04/16/2024; last ED visit 07/02/2024. --Struggles to remain alcohol free due to severe panic attacks. Following with psychiatry --blood work to be completed --fibroscan --complete alcohol abstinence is recommended --diet recommendations printed for review --follow up in 2 months No follow-ups on file. Advised patient to call office with new or worsening symptoms, questions, or concerns. Patient verbalized understanding and agreement of plan. Subjective HPI Patient is followed for polysubstance abuse including (previous vodka, cocaine, meth, oxycodon, fentanyl, heroin, benzodiazapine) IVDU, EtOH abuse, recurrent pancreatitis, HTN, GERD, EtOH withdrawal related seizures. Multiple hospital admissions and ED visits for same. Last hospitalization 04/16/2024; last ED visit 07/02/2024. Patient presents for ED follow up for acute pancreatitis. Has c/o anxiety and tourette's- drinks alcohol for relief. Having 1-2 drinks every 4 days; current daily cigarettes. Currently has zero pain.Admits to poor appetite and early satiety. Struggles to remain alcohol free due to severe panic attacks. Following with psychiatry. Current related work up: multiple Cts, MRI Current GI medications: pantoprazole, promethazine and senokot EGD no Colonoscopy no Antiplatelet no Anticoag no NSAIDS no Supplemental oxygen no CV/Pulm disease no Family history of colon cancer: unknown- mother adopted; unknown father? Personal history of colon polyps or colon cancer: no Pertinent Surgical history: appe Wt Readings from Last 10 Encounters: 07/02/24 210 lb (95.3 kg) 06/26/24 210 lb (95.3 kg) 06/19/24 220 lb (99.8 kg) 06/18/24 210 lb (95.3 kg) 06/12/24 220 lb (99.8 kg) 06/04/24 225 lb (102 kg) 06/01/24 225 lb 12.8 oz (102 kg) 05/30/24 250 lb (113 kg) 05/07/24 250 lb (113 kg) 04/16/24 245 lb (111 kg) Review of Systems Constitutional: Negative for activity change, appetite change and unexpected weight change. HENT: Negative for trouble swallowing and voice change. Respiratory: Negative for cough and choking. Cardiovascular: Negative for chest pain. Gastrointestinal: Negative for abdominal distention, abdominal pain, anal bleeding, blood in stool,constipation, diarrhea, nausea, rectal pain and vomiting. Psychiatric/Behavioral: The patient is nervous/anxious. No Known Allergies Current Outpatient Medications: calcium carbonate (Tums) 500 MG chewable tablet, Chew 1 tablet (500 mg) 3 times daily as needed forheartburn., Disp: 30 tablet, Rfl: 0 cloNIDine (Catapres) 0.1 MG tablet, Take 0.1 mg by mouth 2 times daily., Disp: , Rfl: folic acid (Folvite) 1 MG tablet, Take 1 tablet (1 mg) by mouth daily., Disp: 30 tablet, Rfl: 1 metoprolol succinate XL (Toprol-XL) 50 MG 24 hr tablet, Take 1 tablet (50 mg) by mouth daily. Do not crush or chew., Disp: 30 tablet, Rfl: 1 ondansetron ODT (Zofran-ODT) 4 MG disintegrating tablet, Take 1 tablet (4 mg) by mouth every 8 hours as needed for nausea or vomiting., Disp: 15 tablet, Rfl: 0 ondansetron ODT (Zofran-ODT) 4 MG disintegrating tablet, Take 1 tablet (4 mg) by mouth every 8 hours as needed for nausea or vomiting., Disp: 15 tablet, Rfl: 0 oxyCODONE (Roxicodone) 5 MG immediate release tablet, Take 1 tablet (5 mg) by mouth every 8 hours as needed for severe pain (7-10)., Disp: 12 tablet, Rfl: 0 oxyCODONE (Roxicodone) 5 MG immediate release tablet, Take 1 tablet (5 mg) by mouth every 8 hours as needed for severe pain (7-10)., Disp: 10 tablet, Rfl: 0 pantoprazole (ProtoNix) 40 MG EC tablet, Take 1 tablet (40 mg) by mouth 2 times daily (before meals). Do not crush, chew, or split., Disp: 60 tablet, Rfl: 0 risperiDONE (RisperDAL) 1 MG tablet, Take 1 tablet (1 mg) by mouth 2 times daily., Disp: 60 tablet,Rfl: 3 senna-docusate sodium (Senokot-S) 8.6-50 MG tablet, Take 2 tablets by mouth daily., Disp: 60 tablet, Rfl: 11 thiamine (Vitamin B1) 100 MG tablet, Take 1 tablet (100 mg) by mouth daily., Disp: 30 tablet, Rfl: 1 doxylamine (Unisom) 25 MG tablet, Take 1 tablet (25 mg) by mouth Nightly as needed for sleep., Disp: 30 tablet, Rfl: 0 hydrOXYzine HCl (Atarax) 50 MG tablet, Take 1 tablet (50 mg) by mouth every 8 hours as needed for itching., Disp: 90 tablet, Rfl: 0 methocarbamol (Robaxin) 500 MG tablet, Take 1 tablet (500 mg) by mouth 2 times daily for 10 days., Disp: 20 tablet, Rfl: 0 pantoprazole (ProtoNix) 40 MG EC tablet, Take 1 tablet (40 mg) by mouth every morning (before breakfast). Do not crush, chew, or split., Disp: 30 tablet, Rfl: 0 venlafaxine XR (Effexor XR) 75 MG 24 hr capsule, Take 1 capsule (75 mg) by mouth daily (with breakfast). Do not crush or chew., Disp: 30 capsule, Rfl: 1 Patient Active Problem List Diagnosis Date Noted Pancreatitis, unspecified pancreatitis type 04/04/2024 Priority: Medium Severe malnutrition (CMS/HCC) ([facility]) 02/06/2024 Priority: Medium Alcohol withdrawal syndrome without complication ([facility]) 02/04/2024 Priority: Medium Alcohol-induced acute pancreatitis, unspecified complication status 01/20/2024 Priority: Medium Alcoholic intoxication without complication (CMS/HCC) ([facility]) 12/13/2023 Priority: Medium Moderate malnutrition (CMS/HCC) ([facility]) 11/20/2023 Priority: Medium Acute pancreatitis without infection or necrosis 11/18/2023 Priority: Medium Acute recurrent pancreatitis 10/16/2023 Priority: Medium Severe opioid use disorder on maintenance therapy ([facility]) 08/11/2023 Priority: Medium Severe episode of recurrent major depressive disorder, without psychotic features ([facility]) 08/11/2023 Priority: Medium Severe alcohol use disorder ([facility]) 06/24/2023 Priority: Medium Positive 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 01/07/2023 Priority: Medium History of pancreatitis 01/07/2023 Priority: Medium Benzodiazepine withdrawal with complication (HCC) 11/04/2022 Priority: Medium Opioid withdrawal (HCC) 11/04/2022 Priority: Medium Amphetamine withdrawal ([facility]) 11/04/2022 Priority: Medium Pneumonia 11/04/2022 Priority: Medium Palpitations 11/04/2022 Priority: Medium Other specified abnormal findings of blood chemistry 11/04/2022 Priority: Medium Dermatitis 11/04/2022 Priority: Medium Depression 11/04/2022 Priority: Medium Alcohol abuse 07/11/2022 Priority: Medium Polysubstance use disorder 03/16/2022 Priority: Medium Cocaine abuse (HCC) 03/16/2022 Priority: Medium Elevated liver enzymes 03/16/2022 Priority: Medium Panic disorder 03/16/2022 Priority: Medium Hematemesis of unknown etiology 12/13/2023 GERD (gastroesophageal reflux disease) 06/06/2018 Hypertension 06/06/2018 SVT (supraventricular tachycardia) (HCC) 06/06/2018 Tourette syndrome 06/06/2018 Alcohol induced acute pancreatitis without necrosis or infection 03/29/2018 Past Medical History: Past Medical History: Diagnosis Date Addiction to drug (CMS/HCC) (HCC) Alcohol abuse Alcohol withdrawal syndrome without complication (HCC) 06/27/2022 Alcohol withdrawal with inpatient treatment, uncomplicated (HCC) 03/15/2022 GERD (gastroesophageal reflux disease) History of pancreatitis 01/07/2023 Hypertension Pancreatitis Radial nerve palsy, left Seizures (HCC) SVT (supraventricular tachycardia) (HCC) Tourette syndrome Past Surgical History: Past Surgical History: Procedure Laterality Date APPENDECTOMY Social History: Social History Tobacco Use Smoking status: Every Day Current packs/day: 1.00 Types: Cigarettes Smokeless tobacco: Never Substance Use Topics Alcohol use: Not Currently Comment: former 2/5 vodka daily. Sober since april 2024 Family History: Family History Problem Relation Name Age of Onset No Known Problems Mother No Known Problems Father Objective BP 114/62 Pulse 73 Temp (!) 35.8 C (96.4 F) SpO2 97% Physical Exam Constitutional: General: He is not in acute distress. Appearance: Normal appearance. He is not ill-appearing. HENT: Head: Normocephalic and atraumatic. Eyes: General: No scleral icterus. Extraocular Movements: Extraocular movements intact. Conjunctiva/sclera: Conjunctivae normal. Pupils: Pupils are equal, round, and reactive to light. Cardiovascular: Rate and Rhythm: Normal rate and regular rhythm. Heart sounds: Normal heart sounds. No murmur heard. Pulmonary: Effort: Pulmonary effort is normal. No respiratory distress. Breath sounds: Normal breath sounds. Abdominal: General: Abdomen is flat. Bowel sounds are normal. There is no distension. Palpations: Abdomen is soft. There is no mass. Tenderness: There is no abdominal tenderness. There is no guarding or rebound. Hernia: No hernia is present. Musculoskeletal: Cervical back: Neck supple. Right lower leg: No edema. Left lower leg: No edema. Skin: General: Skin is warm and dry. Coloration: Skin is not jaundiced or pale. Neurological: General: No focal deficit present. Mental Status: He is alert. Psychiatric: Mood and Affect: Mood normal. Thought Content: Thought content normal. Data Reviewed and Summarized Labs: Lab Results Component Value Date WBC 6.8 07/02/2024 HGB 13.2 07/02/2024 HCT 39.6 (L) 07/02/2024 MCV 91.0 07/02/2024 PLT 295 07/02/2024 Lab Results Component Value Date LIPASE 75 (H) 06/26/2024 Lab Results Component Value Date ALT 50 (H) 06/19/2024 AST 90 (H) 06/19/2024 ALKPHOS 161 (H) 06/19/2024 BILITOT 1.2 (H) 06/19/2024 Lab Results Component Value Date INR 1.1 04/04/2024 INR 1.1 01/21/2024 INR 1.0 06/24/2023 PROTIME 12.8 (H) 04/04/2024 PROTIME 12.4 (H) 01/21/2024 PROTIME 11.2 06/24/2023 Lab Results Component Value Date TSH 1.316 10/22/2023 No results found for: IRON, TIBC, FERRITIN Lab Results Component Value Date HAV Negative 06/26/2022 HEPAIGM Not Detected 11/23/2023 HEPBIGM Not Detected 11/23/2023 HEPBCAB Negative 06/26/2022 HEPCAB Not Detected 11/23/2023 Imaging/Testing: Exam Date/Time: 06/20/2024 13:29 Procedure: MR ABDOMEN W AND WO CONTRAST Ordering Provider: HARTLEY JENNIFER Reason For Exam: pancreatitis EXAM: MR Abdomen Without and With Intravenous Contrast CLINICAL INDICATION: pancreatitis. Acute pancreatitis without necrosis or infection. TECHNIQUE: Multiplanar magnetic resonance images of the abdomen without and with intravenous contrast. COMPARISON: Several prior studies dating back to ultrasound abdomen 10/16/2023. FINDINGS: Limitations: Respiratory motion artifact on a few sequences. Liver: Mildly enlarged measuring about 20 cm craniocaudal. No overt contour nodularity. Diffuse hepatic steatosis. Liver demonstrates a reticular enhancement pattern without discrete lesion. Gallbladder and bile ducts: Gallbladder appears within normal limits. No intrahepatic or extra hepatic biliary ductal dilatation. Pancreas: Pancreas is heterogeneous with loss of intrinsic T1 signal. Pancreas appears mildly edematous. Mild peripancreatic stranding/fluid particularly at the level of the lesser sac and anterior left pararenal space.. Pancreas demonstrates fairly homogeneous enhancement. No peripancreatic fluid collection is identified. There is luminal irregularity/beading involving the main pancreatic duct. Pancreatic duct measures up to 3 mm the level of the pancreatic neck. No discrete cut off. No pancreatic divisum. Spleen: Spleen is enlarged measuring at least 16.1 cm AP. Spleen demonstrates homogeneous enhancement. Adrenals: Within normal limits. Kidneys and ureters: Kidneys symmetrically enhance. No hydronephrosis. A few small simple cysts which do not require specific follow-up. Stomach and bowel: There is wall thickening and enhancement involving portions of stomach and proximal small bowel and to lesser extent hepatic flexure/proximal transverse colon. Findings are likely reactive. Intraperitoneal space: Trace perihepatic and perisplenic ascites. Prominent and mildly enlarged gastrohepatic, periportal, peripancreatic lymph nodes probably reactive. Vasculature: Normal caliber abdominal aorta. Major venous structures enhance normally. Bones/joints: Osseous structures appear intact. IMPRESSION: 1. Mild residual acute pancreatitis. Degree inflammation slightly diminished from 06/12/2024. No evidence of pancreatic necrosis or abscess. 2. Pancreatic duct is upper limits of normal measuring up to 3 mm the level the pancreatic neck without discrete cut off or pancreatic divisum. Luminal irregularity/beading from prior pancreatitis. 3. Splenomegaly. 4. Mildly enlarged liver with diffuse hepatic steatosis/early hepatocellular disease. No contour nodularity. 5. Trace upper abdominal ascites. Report Dictated on Electronically Signed By: Arturo Peck MD Electronically Signed Date/Time: 06/21/2024 3:11 PM EDT [facility] 1985 [id number] Exam Date/Time: 05/30/2024 22:45 Procedure: CT ABDOMEN PELVIS WO IV CONTRAST Ordering Provider: DURBIN MEJGON Reason For Exam: left flank pain, concern for kidney stone EXAMINATION: CT of the abdomen and pelvis without contrast. EXAM DATE & TIME: 05/30/2024 10:45 PM EDT INDICATION: left flank pain, concern for kidney stone ADDITIONAL INFORMATION: 38-year-old male with left flank pain and concern for renal calculus presents for evaluation COMPARISON: CT abdomen pelvis dated 05/22/2024 LIMITATIONS: Evaluation of the vasculature as well as the solid and hollow viscera is limited due to the lack of intravenous and oral contrast. TECHNIQUE: Contiguous multiplanar 3 mm images were obtained from the levels of the lung bases through the pelvis without contrast. Images were reformatted in coronal and sagittal projections using the raw CT data and were interpreted in conjunction with the axial images to render the findings listed below. Dose reduction was employed with automated exposure control. FINDINGS: Included images of the lower thorax: No focal lung consolidation or pleural effusion. Hepatobiliary: The liver is enlarged and steatotic. No significant intrahepatic ductal dilatation. Gallbladder sludge is noted. Spleen: Unremarkable. Pancreas: Hazy infiltration surrounds the pancreas, similar compared to the prior study. Adrenal glands: Unremarkable. Kidneys, ureters and bladder: No hydronephrosis or nephrolithiasis. The urinary bladder is unremarkable in appearance. Abdominal and pelvic vasculature: Unremarkable. Gastrointestinal: A couple scattered colonic diverticula are seen without surrounding inflammatory change. There is no evidence of bowel obstruction. The appendix is surgically absent. Peritoneum, retroperitoneum and mesentery: Inflammatory changes surround the pancreas and left paracolic gutter. No free fluid or free air. Lymph nodes: No abdominal or pelvic lymphadenopathy is evident. Solid pelvic viscera: Unremarkable. Visualized musculoskeletal structures: No acute fracture or destructive osseous lesion is identified. IMPRESSION: 1. Peripancreatic haziness is redemonstrated, which can be seen in the setting of acute pancreatitis. Correlation with appropriate laboratory values is recommended. 2. Hepatomegaly and hepatic steatosis. Report Dictated on Electronically Signed By: Hitesh Nation MD Electronically Signed Date/Time: 05/30/2024 11:03 PM EDT Seema Hartley NP-C 12:26 PM 08/23/24 documented in this [facility]07-15-2025 Instructions* Patient Instructions* Jhon Milian MA - 08/23/2024 11:00 AM EDT --blood work to be completed order given --fibroscan faxing order to ID dept --complete alcohol abstinence is recommended --diet recommendations printed for review --follow up in 2 months * Attachments The following attachments cannot be sent through Care Everywhere. * Pancreatitis Discharge Instructions (South Korean) * Diet for Cirrhosis ([place] Korean) documented in this [facility]07-15-2025 Instructions* Patient Instructions* Jhon Milian MA - 08/23/2024 11:00 AM EDT --blood work to be completed order given --fibroscan faxing order to ID dept --complete alcohol abstinence is recommended --diet recommendations printed for review --follow up in 2 months * Attachments The following attachments cannot be sent through Care Everywhere. * Pancreatitis Discharge Instructions ([place] Korean) * Diet for Cirrhosis ([place]) documented in this [facility]07-15-2025 Miscellaneous Notes* Addendum Note - Vance Lizama - 08/23/2024 11:00 AM EDTAddended by: VANCE LIZAMA on: 2024 02:43 PM Modules accepted: Orders * Addendum Note - Vance Lizama - 08/23/2024 11:00 AM EDTAddended by: VANCE LIZAMA on: 2024 02:44 PM Modules accepted: Orders documented in this [facility]07-15-2025 Note* Addendum Note - Vance Lizama - 08/23/2024 11:00 AM EDTAddended by: VANCE LIZAMA on: 2024 02:43 PM Modules accepted: Orders [place] [id number] Note* Addendum Note - Vance Lizama - 08/23/2024 11:00 AM EDTAddended by: VANCE LIZAMA on: 2024 02:44 PM Modules accepted: Orders [place] [id number] Note* Addendum Note - Vance Lizama - 08/23/2024 11:00 AM EDTAddended by: VANCE LIZAMA on: 2024 02:43 PM Modules accepted: Orders [place] [id number] Note* Addendum Note - Vance Lizama - 08/23/2024 11:00 AM EDTAddended by: VANCE LIZAMA on: 2024 02:44 PM Modules accepted: Orders [place] [id number] Telephone encounter Note* Telephone Encounter - Hattie Law MA - 08/22/2024 3:06 PM EDT Patient called back in, sooner opening no longer available. Rescheduled for 11/15 at 10:30 and placed on cancellation list. Patient stated this appointment is too far out, will call with next opening we get. [place] [id number] Miscellaneous Notes* Telephone Encounter - Hattie Law MA - 08/22/2024 3:06 PM EDT Patient called back in, sooner opening no longer available. Rescheduled for 11/15 at 10:30 and placed on cancellation list. Patient stated this appointment is too far out, will call with next opening we get. * Telephone Encounter - Suzy Carrero MA - 08/22/2024 1:46 PM EDT Lmtcb to get 10/05 appointment rescheduled due to the provider not being in the office. * Telephone Encounter - Afshin Dubose - 08/01/2024 3:39 PM EDT Patient called office to r/s OV. Patient was offered next soonest OV, 10/05. Patient agreed, placed on cancellation list for sooner appointment. Thanks * Telephone Encounter - Afshin Dubose - 07/25/2024 8:39 AM EDT Called and lvm for patient to contact office to r/s OV due to provider OOO. Sent [facility] message aswell for patient to respond to. Thanks documented in this encounterSDayton Children's [id number] Telephone encounter Note* Telephone Encounter - Suzy Carrero MA - 08/22/2024 1:46 PM EDT Lmtcb to get 10/05 appointment rescheduled due to the provider not being in the office. [id number] Telephone encounter Note* Telephone Encounter - Maria Victoria Argueta - 08/15/2024 3:11 PM EDT Pt scheduled [id number] Miscellaneous Notes* Telephone Encounter - Maria Victoria Argueta - 08/15/2024 3:11 PM EDT Pt scheduled * Telephone Encounter - Gal Moreno - 08/09/2024 9:13 AM EDT Name of caller: Roro Contact phone number: [phone] Relationship to Patient: patient Provider: Any Practice: Dental Chief Complaint/Reason for Call: Patient cancelled exam for today. Please call to reschedule. Best time of day caller can be reached: any Patient advised that office/PCP has 24-48 business hours to return their call: no documented in this encounterSDayton Children's [id number] Telephone encounter Note* Telephone Encounter - Gal Moreno - 08/09/2024 9:13 AM EDT Name of caller: Roro Contact phone number: [phone] Relationship to Patient: patient Provider: Any Practice: Dental Chief Complaint/Reason for Call: Patient cancelled exam for today. Please call to reschedule. Best time of day caller can be reached: any Patient advised that office/PCP has 24-48 business hours to return their call: no [id number] Telephone encounter Note* Telephone Encounter - Afshin Dubose - 08/01/2024 3:39 PM EDT Patient called office to r/s OV. Patient was offered next soonest OV, 10/05. Patient agreed, placed on cancellation list for sooner appointment. Thanks [facility] [id number] Miscellaneous Notes* Telephone Encounter - Afshin Dubose - 08/01/2024 3:39 PM EDT Patient called office to r/s OV. Patient was offered next soonest OV, 10/05. Patient agreed, placed on cancellation list for sooner appointment. Thanks * Telephone Encounter - Afshin Dubose - 07/25/2024 8:39 AM EDT Called and lvm for patient to contact office to r/s OV due to provider OOO. Sent [facility] message [employer] for patient to respond to. Thanks documented in this [facility]06-16-2025 Telephone encounter Note* Telephone Encounter - Afshin Dubose - 07/25/2024 8:39 AM EDT Called and lvm for patient to contact office to r/s OV due to provider OOO. Sent [facility] message [employer] for patient to respond to. Thanks [facility] [id number] Hospital Discharge instructions* Discharge Instructions* Mattie Durbin DO - 06/26/2024 10:40 PM EDT Call to schedule an appointment with your primary care physician or gastroenterology for follow-up of your pancreatitis. If you have worsening pain or vomiting return to the ER. * Attachments The following attachments cannot be sent through Care Everywhere. * Pancreatitis Discharge Instructions ([place] Korean) documented in this [facility]05-18-2025 Emergency department Note* Mattie Durbin DO - 06/26/2024 7:08 PM EDT EMERGENCY DEPARTMENT ENCOUNTER Pt Name: Roro Valdivia Birthdate 1985 Date of evaluation: 06/26/2024 ED Provider: Mejgon Z Gifty, DO CHIEF COMPLAINT Chief Complaint Patient presents with Abdominal Pain Pt arrives from home for generalized abdominal pain 1 month. Pt states he has hx pancreatitis and has been drinking nothing but ensures for the last few weeks. Pain 7/10 Nausea HISTORY OF PRESENT ILLNESS (Location/Symptom, Timing/Onset, Context/Setting, Quality, Duration, Modifying Factors, Severity) Note limiting factors. I wore appropriate PPE for the entirety of this encounter. HPI Roro Valdivia is a 38 y.o. who presents to the emergency department with chief complaint of abdominal pain and nausea. Patient has a history of chronic pancreatitis and was recently seen by KALINA. Nannette MRI of the abdomen that is showing signs of end-stage liver disease with trace ascites. States that he was sober from alcohol however recently had a few drinks. Since that time has had increased pain. Nursing Notes were reviewed. Limitations to history: None Outside historians: None REVIEW OF SYSTEMS Review of Systems Pertinent positives and negatives as per HPI. PAST MEDICAL HISTORY Medical History[1] SURGICAL HISTORY Surgical History[2] CURRENT MEDICATIONS Discharge Medication List as of 06/26/2024 10:40 PM CONTINUE these medications which have NOT CHANGED Details calcium carbonate (Tums) 500 MG chewable tablet Chew 1 tablet (500 mg) 3 times daily as needed for heartburn., Starting Thu04/20/2024, Until Janay 04/20/2025 at 2359, Normal cloNIDine (Catapres) 0.1 MG tablet Take 0.1 mg by mouth 2 times daily., Historical Med doxylamine (Unisom) 25 MG tablet Take 1 tablet (25 mg) by mouth Nightly as needed for sleep., Starting Thu03/30/2024, Until Thu04/29/2024 at 2359, Normal folic acid (Folvite) 1 MG tablet Take 1 tablet (1 mg) by mouth daily., Starting Janay 04/07/2024, Until Thu04/07/2025, Normal hydrOXYzine HCl (Atarax) 50 MG tablet Take 1 tablet (50 mg) by mouth every 8 hours as needed for itching., Starting Thu03/30/2024, Until Thu04/29/2024 at 2359, Normal metoprolol succinate XL (Toprol-XL) 50 MG 24 hr tablet Take 1 tablet (50 mg) by mouth daily. Do notcrush or chew., Starting Thu03/30/2024, Until Thu03/30/2025, Normal !! ondansetron ODT (Zofran-ODT) 4 MG disintegrating tablet Take 1 tablet (4 mg) by mouth every 8 hours as needed for nausea or vomiting., Starting 06/04/2024, Normal !! oxyCODONE (Roxicodone) 5 MG immediate release tablet Take 1 tablet (5 mg) by mouth every 8 hoursas needed for severe pain (7-10)., Starting 06/04/2024, Normal pantoprazole (ProtoNix) 40 MG EC tablet Take 1 tablet (40 mg) by mouth 2 times daily (before meals). Do not crush, chew, or split., Starting Thu12/17/2023, Until Thu12/16/2024, Normal risperiDONE (RisperDAL) 1 MG tablet Take 1 tablet (1 mg) by mouth 2 times daily., Starting Thu04/26/2024, Until Thu04/26/2025, Normal senna-docusate sodium (Senokot-S) 8.6-50 MG tablet Take 2 tablets by mouth daily., Starting Thu04/21/2024, Until Thu04/21/2025, Normal thiamine (Vitamin B1) 100 MG tablet Take 1 tablet (100 mg) by mouth daily., Starting Thu04/07/2024,Normal venlafaxine XR (Effexor XR) 75 MG 24 hr capsule Take 1 capsule (75 mg) by mouth daily (with breakfast). Do not crush or chew., Starting Thu02/17/2024, Until Thu04/17/2024, Normal !! - Potential duplicate medications found. Please discuss with provider. ALLERGIES Patient has no known allergies. FAMILY HISTORY Family History[3] SOCIAL HISTORY Social History[4] SCREENINGS PHYSICAL EXAM ED Triage Vitals [06/26/24 1910] Temp Heart Rate Resp BP 36.8 C (98.2 F) (!) 118 15 (!) 141/97 SpO2 Temp Source Heart Rate Source Patient Position 98 % Temporal Monitor -- BP Location FiO2 (%) -- -- Physical Exam Vitals and nursing note reviewed. Constitutional: General: He is not in acute distress. Appearance: He is well-developed. He is not ill-appearing or toxic-appearing. HENT: Head: Normocephalic and atraumatic. Eyes: Conjunctiva/sclera: Conjunctivae normal. Cardiovascular: Rate and Rhythm: Regular rhythm. Tachycardia present. Heart sounds: No murmur heard. Pulmonary: Effort: Pulmonary effort is normal. No respiratory distress. Breath sounds: Normal breath sounds. Abdominal: General: There is no distension. Palpations: Abdomen is soft. Tenderness: There is abdominal tenderness in the epigastric area and left upper quadrant. There is no right CVA tenderness or left CVA tenderness. Musculoskeletal: General: No swelling. Cervical back: Neck supple. Skin: General: Skin is warm and dry. Capillary Refill: Capillary refill takes less than 2 seconds. Neurological: General: No focal deficit present. Mental Status: He is alert. DIAGNOSTIC RESULTS Procedures/EKG: EKG was reviewed by myself. [facility] RAD[facility]OLOGY (Per Emergency Physician): Interpretation per the Radiologist below, if available at the time of this note: CT abdomen pelvis w contrast Final Result Suspicious for acute pancreatitis. Report Dictated on Electronically Signed By: Steve Jacinto MD Electronically Signed Date/Time: 06/26/2024 9:50 PM EDT ED BEDSIDE ULTRASOUND: Performed by ED Physician - none LABS: Labs Reviewed BASIC METABOLIC PANEL - Abnormal Result Value SODIUM 141 POTASSIUM 3.8 CHLORIDE 107 CARBON DIOXIDE 19 (*) UREA NITROGEN 4 (*) CREATININE 0.61 (*) GLUCOSE 125 (*) CALCIUM 9.0 ANION GAP 15 (*) eGFR >90.0 LIPASE - Abnormal LIPASE 75 (*) CBC (HEMOGRAM) - Normal Auto WBC 9.2 RBC 4.67 Hemoglobin 14.2 Hematocrit 42.0 MCV 89.9 MCH 30.4 MCHC 33.8 RDW 13.7 Platelets 384 MPV 9.9 All other labs were within normal range or not returned as of this dictation. EMERGENCY DEPARTMENT COURSE and DIFFERENTIAL DIAGNOSIS/MDM: Vitals: Vitals: 06/26/24 19106/26/24 19106/26/24 2208 BP: (!) 141/97 (!) 136/97 Pulse: (!) 118 94 Resp: 15 18 Temp: 36.8 C (98.2 F) TempSrc: Temporal SpO2: 98% 98% Weight: 95.3 kg (210 lb) Height: 1.854 m (6' 1) Diagnoses as of 06/27/24 0046 Alcohol-induced acute pancreatitis without infection or necrosis The patient presented with chief complaint of abdominal pain. The differential diagnosis associated with this patient's presentation includes pancreatitis, gastritis, bowel obstruction. Our workup consisted of ordering/reviewing: Labs and CT. Patient is in agreement with this plan. Medications ondansetron (Zofran) injection 4 mg (4 mg IntraVENous Given 06/26/242024) morphine injection 4 mg (4 mg IntraVENous Given 06/26/242024) sodium chloride 0.9 % bolus 1,000 mL (0 mL IntraVENous Stopped 06/26/242204) famotidine (Pepcid) tablet 20 mg (20 mg Oral Given 06/26/242024) sucralfate (Carafate) tablet 1 g (1 g Oral Given 06/26/242024) iopamidol (Isovue-370) 76 % injection 75 mL (75 mL IntraVENous Given 06/26/242142) REVAL: 38-year-old male presenting to the ED for abdominal pain after recent alcohol. He is tachycardic onarrival but heart rate improved with IV fluids and pain control. Given his history of pancreatitis,a CT was obtained and shows evidence of acute pancreatitis. Patient is able to tolerate p.o. and will be discharged home with pain control and Zofran. He was advised to stop drinking alcohol. 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 CRITICAL CARE TIME CONSULTS: None PROCEDURES: Unless otherwise noted below, none Procedures Patients symptoms are consistent with sepsis, severe sepsis, or septic shock (If yes use .sepsiscoremeasure): FINAL IMPRESSION 1. Alcohol-induced acute pancreatitis without infection or necrosis DISPOSITION Discharge 06/26/2024 10:38:49 PM PATIENT REFERRED TO: Tam Hughes DO [address] [facility] [id number] DISCHARGE MEDICATIONS: Discharge Medication List as of 06/26/2024 10:40 PM START taking these medications Details !! ondansetron ODT (Zofran-ODT) 4 MG disintegrating tablet Take 1 tablet (4 mg) by mouth every 8 hours as needed for nausea or vomiting., Starting 06/26/2024, Normal !! oxyCODONE (Roxicodone) 5 MG immediate release tablet Take 1 tablet (5 mg) by mouth every 8 hoursas needed for severe pain (7-10)., Starting 06/26/2024, Normal !! - Potential duplicate medications found. Please discuss with provider. (Comment: Please note this report has been produced using speech recognition software and may contain errors related to that system including errors in grammar, punctuation, and spelling, as well as words and phrases that may be inappropriate. If there are any questions or concerns please feel freeto contact the dictating provider for clarification.) Mattie Durbin DO (electronically signed) Emergency Medicine Provider [1] Past Medical History: Diagnosis Date Addiction to drug ([facility]) ([facility]) Alcohol abuse Alcohol withdrawal syndrome without complication ([facility]) 06/27/2022 Alcohol withdrawal with inpatient treatment, uncomplicated ([facility]) 03/15/2022 GERD (gastroesophageal reflux disease) History of pancreatitis 01/07/2023 Hypertension Pancreatitis Seizures ([facility]) SVT (supraventricular tachycardia) ([facility]) Tourette syndrome [2] Past Surgical History: Procedure Laterality Date APPENDECTOMY [3] Family History Problem Relation Name Age of Onset No Known Problems Mother No Known Problems Father [4] Social History Socioeconomic History Marital status: Single Tobacco Use Smoking status: Every Day Current packs/day: 1.00 Types: Cigarettes Smokeless tobacco: Never Vaping Use Vaping status: Never Used Substance and Sexual Activity Alcohol use: Not Currently Comment: former 2/5 vodka daily. Sober since april 2024 Drug use: Not Currently Types: Cocaine, Methamphetamines, Oxycodone, Fentanyl, Heroin, Benzodiazepines Sexual activity: Not Currently Social Drivers of Health Financial Resource Strain: Low Risk (02/05/2024) Overall Financial Resource Strain (CARDIA) Difficulty of Paying Living Expenses: Not hard at all Recent Concern: Financial Resource Strain - Medium Risk (12/14/2023) Overall Financial Resource Strain (CARDIA) Difficulty of Paying Living Expenses: Somewhat hard Food Insecurity: No Food Insecurity (04/20/2024) Hunger Vital Sign Worried About Running Out of Food in the Last Year: Never true Ran Out of Food in the Last Year: Never true Transportation Needs: No Transportation Needs (04/20/2024) PRAPARE - Transportation Lack of Transportation (Medical): No Lack of Transportation (Non-Medical): No Physical Activity: Inactive (02/05/2024) Exercise Vital Sign Days of Exercise per Week: 0 days Minutes of Exercise per Session: 0 min Stress: Stress Concern Present (02/05/2024) [employer] - Occupational Stress Questionnaire Feeling of Stress : To some extent Social Connections: Socially Isolated (02/05/2024) Social Connection and Isolation Panel [NHANES] Frequency of Communication with Friends and Family: More than three times a week Frequency of Social Gatherings with Friends and Family: More than three times a week Attends [employer] Services: Never Active Member of Clubs or Organizations: No Attends Club or Organization Meetings: Never Marital Status: Never Intimate Partner Violence: Not At Risk (04/20/2024) Humiliation, Afraid, Rape, and Kick questionnaire Fear of Current or Ex-Partner: No Emotionally Abused: No Physically Abused: No Sexually Abused: No Housing Stability: Low Risk (04/20/2024) Housing Stability Vital Sign Unable to Pay for Housing in the Last Year: No Number of Times Moved in the Last Year: 0 Homeless in the Last Year: No Recent Concern: Housing Stability - High Risk (02/05/2024) Housing Stability Vital Sign Unable to Pay for Housing in the Last Year: Patient unable to answer Number of Times Moved in the Last Year: 0 Homeless in the Last Year: Yes Mattie Durbin DO 06/27/24 0048 documented in this [facility]05-18-2025 Physician Emergency department Note* Mattie Durbin DO - 06/26/2024 7:08 PM EDT EMERGENCY DEPARTMENT ENCOUNTER Pt Name: Roro Valdivia Birthdate 1985 Date of evaluation: 06/26/2024 ED Provider: Mattie Durbin DO CHIEF COMPLAINT Chief Complaint Patient presents with Abdominal Pain Pt arrives from home for generalized abdominal pain 1 month. Pt states he has hx pancreatitis and has been drinking nothing but ensures for the last few weeks. Pain 7/10 Nausea HISTORY OF PRESENT ILLNESS (Location/Symptom, Timing/Onset, Context/Setting, Quality, Duration, Modifying Factors, Severity) Note limiting factors. I wore appropriate PPE for the entirety of this encounter. HPI Roro Valdivia is a 38 y.o. who presents to the emergency department with chief complaint of abdominal pain and nausea. Patient has a history of chronic pancreatitis and was recently seen by GI. Nannette MRI of the abdomen that is showing signs of end-stage liver disease with trace ascites. States that he was sober from alcohol however recently had a few drinks. Since that time has had increased pain. Nursing Notes were reviewed. Limitations to history: None Outside historians: None REVIEW OF SYSTEMS Review of Systems Pertinent positives and negatives as per HPI. PAST MEDICAL HISTORY Medical History[1] SURGICAL HISTORY Surgical History[2] CURRENT MEDICATIONS Discharge Medication List as of 06/26/2024 10:40 PM CONTINUE these medications which have NOT CHANGED Details calcium carbonate (Tums) 500 MG chewable tablet Chew 1 tablet (500 mg) 3 times daily as needed for heartburn., Starting Thu04/20/2024, Until Janay 04/20/2025 at 2359, Normal cloNIDine (Catapres) 0.1 MG tablet Take 0.1 mg by mouth 2 times daily., Historical Med doxylamine (Unisom) 25 MG tablet Take 1 tablet (25 mg) by mouth Nightly as needed for sleep., Starting Thu03/30/2024, Until Thu04/29/2024 at 2359, Normal folic acid (Folvite) 1 MG tablet Take 1 tablet (1 mg) by mouth daily., Starting Janay 04/07/2024, Until Thu04/07/2025, Normal hydrOXYzine HCl (Atarax) 50 MG tablet Take 1 tablet (50 mg) by mouth every 8 hours as needed for itching., Starting Thu03/30/2024, Until Thu04/29/2024 at 2359, Normal metoprolol succinate XL (Toprol-XL) 50 MG 24 hr tablet Take 1 tablet (50 mg) by mouth daily. Do notcrush or chew., Starting Thu03/30/2024, Until Janay 03/30/2025, Normal !! ondansetron ODT (Zofran-ODT) 4 MG disintegrating tablet Take 1 tablet (4 mg) by mouth every 8 hours as needed for nausea or vomiting., Starting 06/04/2024, Normal !! oxyCODONE (Roxicodone) 5 MG immediate release tablet Take 1 tablet (5 mg) by mouth every 8 hoursas needed for severe pain (7-10)., Starting 06/04/2024, Normal pantoprazole (ProtoNix) 40 MG EC tablet Take 1 tablet (40 mg) by mouth 2 times daily (before meals). Do not crush, chew, or split., Starting Janay 12/17/2023, Until Thu12/16/2024, Normal risperiDONE (RisperDAL) 1 MG tablet Take 1 tablet (1 mg) by mouth 2 times daily., Starting Thu04/26/2024, Until Thu04/26/2025, Normal senna-docusate sodium (Senokot-S) 8.6-50 MG tablet Take 2 tablets by mouth daily., Starting Thu04/21/2024, Until Thu04/21/2025, Normal thiamine (Vitamin B1) 100 MG tablet Take 1 tablet (100 mg) by mouth daily., Starting Janay 04/07/2024,Normal venlafaxine XR (Effexor XR) 75 MG 24 hr capsule Take 1 capsule (75 mg) by mouth daily (with breakfast). Do not crush or chew., Starting Thu02/17/2024, Until Thu04/17/2024, Normal !! - Potential duplicate medications found. Please discuss with provider. ALLERGIES Patient has no known allergies. FAMILY HISTORY Family History[3] SOCIAL HISTORY Social History[4] SCREENINGS PHYSICAL EXAM ED Triage Vitals [06/26/24 1910] Temp Heart Rate Resp BP 36.8 C (98.2 F) (!) 118 15 (!) 141/97 SpO2 Temp Source Heart Rate Source Patient Position 98 % Temporal Monitor -- BP Location FiO2 (%) -- -- Physical Exam Vitals and nursing note reviewed. Constitutional: General: He is not in acute distress. Appearance: He is well-developed. He is not ill-appearing or toxic-appearing. HENT: Head: Normocephalic and atraumatic. Eyes: Conjunctiva/sclera: Conjunctivae normal. Cardiovascular: Rate and Rhythm: Regular rhythm. Tachycardia present. Heart sounds: No murmur heard. Pulmonary: Effort: Pulmonary effort is normal. No respiratory distress. Breath sounds: Normal breath sounds. Abdominal: General: There is no distension. Palpations: Abdomen is soft. Tenderness: There is abdominal tenderness in the epigastric area and left upper quadrant. There is no right CVA tenderness or left CVA tenderness. Musculoskeletal: General: No swelling. Cervical back: Neck supple. Skin: General: Skin is warm and dry. Capillary Refill: Capillary refill takes less than 2 seconds. Neurological: General: No focal deficit present. Mental Status: He is alert. DIAGNOSTIC RESULTS Procedures/EKG: EKG was reviewed by myself. [facility] RAD[facility]OLOGY (Per Emergency Physician): Interpretation per the Radiologist below, if available at the time of this note: CT abdomen pelvis w contrast Final Result Suspicious for acute pancreatitis. Report Dictated on Electronically Signed By: Steve Jacinto MD Electronically Signed Date/Time: 06/26/2024 9:50 PM EDT ED BEDSIDE ULTRASOUND: Performed by ED Physician - none LABS: Labs Reviewed BASIC METABOLIC PANEL - Abnormal Result Value SODIUM 141 POTASSIUM 3.8 CHLORIDE 107 CARBON DIOXIDE 19 (*) UREA NITROGEN 4 (*) CREATININE 0.61 (*) GLUCOSE 125 (*) CALCIUM 9.0 ANION GAP 15 (*) eGFR >90.0 LIPASE - Abnormal LIPASE 75 (*) CBC (HEMOGRAM) - Normal Auto WBC 9.2 RBC 4.67 Hemoglobin 14.2 Hematocrit 42.0 MCV 89.9 MCH 30.4 MCHC 33.8 RDW 13.7 Platelets 384 MPV 9.9 All other labs were within normal range or not returned as of this dictation. EMERGENCY DEPARTMENT COURSE and DIFFERENTIAL DIAGNOSIS/MDM: Vitals: Vitals: 06/26/24 1910 06/26/24 1911 06/26/24 2208 BP: (!) 141/97 (!) 136/97 Pulse: (!) 118 94 Resp: 15 18 Temp: 36.8 C (98.2 F) TempSrc: Temporal SpO2: 98% 98% Weight: 95.3 kg (210 lb) Height: 1.854 m (6' 1) Diagnoses as of 06/27/24 0046 Alcohol-induced acute pancreatitis without infection or necrosis The patient presented with chief complaint of abdominal pain. The differential diagnosis associated with this patient's presentation includes pancreatitis, gastritis, bowel obstruction. Our workup consisted of ordering/reviewing: Labs and CT. Patient is in agreement with this plan. Medications ondansetron (Zofran) injection 4 mg (4 mg IntraVENous Given 06/26/242024) morphine injection 4 mg (4 mg IntraVENous Given 06/26/242024) sodium chloride 0.9 % bolus 1,000 mL (0 mL IntraVENous Stopped 06/26/242204) famotidine (Pepcid) tablet 20 mg (20 mg Oral Given 06/26/242024) sucralfate (Carafate) tablet 1 g (1 g Oral Given 06/26/242024) iopamidol (Isovue-370) 76 % injection 75 mL (75 mL IntraVENous Given 06/26/242142) REVAL: 38-year-old male presenting to the ED for abdominal pain after recent alcohol. He is tachycardic onarrival but heart rate improved with IV fluids and pain control. Given his history of pancreatitis,a CT was obtained and shows evidence of acute pancreatitis. Patient is able to tolerate p.o. and will be discharged home with pain control and Zofran. He was advised to stop drinking alcohol. 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 CRITICAL CARE TIME CONSULTS: None PROCEDURES: Unless otherwise noted below, none Procedures Patients symptoms are consistent with sepsis, severe sepsis, or septic shock (If yes use .sepsiscoremeasure): FINAL IMPRESSION 1. Alcohol-induced acute pancreatitis without infection or necrosis DISPOSITION Discharge 06/26/2024 10:38:49 PM PATIENT REFERRED TO: Tam Hughes DO [address] [facility] [id number] DISCHARGE MEDICATIONS: Discharge Medication List as of 06/26/2024 10:40 PM START taking these medications Details !! ondansetron ODT (Zofran-ODT) 4 MG disintegrating tablet Take 1 tablet (4 mg) by mouth every 8 hours as needed for nausea or vomiting., Starting 06/26/2024, Normal !! oxyCODONE (Roxicodone) 5 MG immediate release tablet Take 1 tablet (5 mg) by mouth every 8 hoursas needed for severe pain (7-10)., Starting 06/26/2024, Normal !! - Potential duplicate medications found. Please discuss with provider. (Comment: Please note this report has been produced using speech recognition software and may contain errors related to that system including errors in grammar, punctuation, and spelling, as well as words and phrases that may be inappropriate. If there are any questions or concerns please feel freeto contact the dictating provider for clarification.) Mattie Durbin DO (electronically signed) Emergency Medicine Provider [1] Past Medical History: Diagnosis Date Addiction to drug (CMS/HCC) (HCC) Alcohol abuse Alcohol withdrawal syndrome without complication (HCC) 06/27/2022 Alcohol withdrawal with inpatient treatment, uncomplicated ([facility]) 03/15/2022 GERD (gastroesophageal reflux disease) History of pancreatitis 01/07/2023 Hypertension Pancreatitis Seizures ([facility]) SVT (supraventricular tachycardia) ([facility]) Tourette syndrome [2] Past Surgical History: Procedure Laterality Date APPENDECTOMY [3] Family History Problem Relation Name Age of Onset No Known Problems Mother No Known Problems Father [4] Social History Socioeconomic History Marital status: Single Tobacco Use Smoking status: Every Day Current packs/day: 1.00 Types: Cigarettes Smokeless tobacco: Never Vaping Use Vaping status: Never Used Substance and Sexual Activity Alcohol use: Not Currently Comment: former 2/5 vodka daily. Sober since april 2024 Drug use: Not Currently Types: Cocaine, Methamphetamines, Oxycodone, Fentanyl, Heroin, Benzodiazepines Sexual activity: Not Currently Social Drivers of Health Financial Resource Strain: Low Risk (02/05/2024) Overall Financial Resource Strain (CARDIA) Difficulty of Paying Living Expenses: Not hard at all Recent Concern: Financial Resource Strain - Medium Risk (12/14/2023) Overall Financial Resource Strain (CARDIA) Difficulty of Paying Living Expenses: Somewhat hard Food Insecurity: No Food Insecurity (04/20/2024) Hunger Vital Sign Worried About Running Out of Food in the Last Year: Never true Ran Out of Food in the Last Year: Never true Transportation Needs: No Transportation Needs (04/20/2024) PRAPARE - Transportation Lack of Transportation (Medical): No Lack of Transportation (Non-Medical): No Physical Activity: Inactive (02/05/2024) Exercise Vital Sign Days of Exercise per Week: 0 days Minutes of Exercise per Session: 0 min Stress: Stress Concern Present (02/05/2024) [employer] - Occupational Stress Questionnaire Feeling of Stress : To some extent Social Connections: Socially Isolated (02/05/2024) Social Connection and Isolation Panel [NHANES] Frequency of Communication with Friends and Family: More than three times a week Frequency of Social Gatherings with Friends and Family: More than three times a week Attends [employer] Services: Never Active Member of Clubs or Organizations: No Attends Club or Organization Meetings: Never Marital Status: Never Intimate Partner Violence: Not At Risk (04/20/2024) Humiliation, Afraid, Rape, and Kick questionnaire Fear of Current or Ex-Partner: No Emotionally Abused: No Physically Abused: No Sexually Abused: No Housing Stability: Low Risk (04/20/2024) Housing Stability Vital Sign Unable to Pay for Housing in the Last Year: No Number of Times Moved in the Last Year: 0 Homeless in the Last Year: No Recent Concern: Housing Stability - High Risk (02/05/2024) Housing Stability Vital Sign Unable to Pay for Housing in the Last Year: Patient unable to answer Number of Times Moved in the Last Year: 0 Homeless in the Last Year: Yes Mattie Durbin DO [facility]27/24 [id number]charge [facility]* Discharge Instructions* Fahad Cates PA-C - 06/19/2024 11:14 PM EDT Eat a bland diet for the next week. Do not do any extravagant food and I would advise you eating foods like toast, peanut butter, crackers and soup, nonspicy or flavored foods. Is importantly follow-up with your primary care doctor closely for further evaluation and care. Return the emergency department if you have persistent vomiting, temperature 100.5 or higher, chest pain shortness of breath up walking around, feel dizzy or pass out. * Attachments The following attachments cannot be sent through Care Everywhere. * Chronic Pancreatitis ([place]) documented in this [facility]05-11-2025 Emergency department Note* Fahad Cates PA-C - 06/19/2024 7:23 PM EDT Emergency Department Encounter [facility] ED Pt Name: Roro Valdivia Birthdate 1985 Date of evaluation: 06/19/2024 ED Provider: Fahad Cates PA-C CHIEF COMPLAINT Chief Complaint Patient presents with Abdominal Pain Pt arrived to triage for abdominal pain, pt states that the pain started 2 days ago and was here and the doctor told him to come back if the pain got worse. Pt states pain is 8/10 HISTORY OF PRESENT ILLNESS (Location/Symptom, Timing/Onset, Context/Setting, Quality, Duration, Modifying Factors, Severity) Note limiting factors. I wore appropriate PPE for the entirety of this encounter. Roro Valdivia is a 38 y.o. male with a history of chronic pancreatitis, tried syndrome, hypertension, appendectomy, who presents to the emergency department for concerns of acute on chronic epigastric abdominal pain. He states he has had flare of what he thinks is his chronic pancreatitis over the last week or so. He was seen in the emergency department yesterday and symptoms improved and was discharged home. Today, a few hours ago he tried eating a hot dog which instantly made pain significantly worse which is why he is coming here. Is 8 out of 10 severity that is unalleviated with ibuprofen at home. Does feel nauseated but no vomiting. No diarrhea or constipation. No melena or hematochezia. Pain does not radiate. No chest pain or shortness of breath or palpitations. He states his pancreatitis is from history of drinking but he stopped drinking about a month and a half ago. He stateshe did have a lapse roughly a week and a half ago where he took 1 sip of beer but it made him sick and he threw it up and did not drink anything after that. Denies any drug use. Limitations to history: None Outside historians: None REVIEW OF SYSTEMS Review of Systems Please see HPI for pertinent positives and negatives. All other systems reviewed and negative PAST MEDICAL HISTORY Past Medical History: Diagnosis Date Addiction to drug ([facility]/HCC) (HCC) Alcohol abuse Alcohol withdrawal syndrome without complication ([facility]) 06/27/2022 Alcohol withdrawal with inpatient treatment, uncomplicated ([facility]) 03/15/2022 GERD (gastroesophageal reflux disease) History of pancreatitis 01/07/2023 Hypertension Pancreatitis Seizures (HCC) SVT (supraventricular tachycardia) (HCC) Tourette syndrome SURGICAL HISTORY Past Surgical History: Procedure Laterality Date APPENDECTOMY CURRENT MEDICATIONS Previous Medications CALCIUM CARBONATE (TUMS) 500 MG CHEWABLE TABLET Chew 1 tablet (500 mg) 3 times daily as needed for heartburn. CLONIDINE (CATAPRES) 0.1 MG TABLET Take 0.1 mg by mouth 2 times daily. DOXYLAMINE (UNISOM) 25 MG TABLET Take 1 tablet (25 mg) by mouth Nightly as needed for sleep. FOLIC ACID (FOLVITE) 1 MG TABLET Take 1 tablet (1 mg) by mouth daily. HYDROXYZINE HCL (ATARAX) 50 MG TABLET Take 1 tablet (50 mg) by mouth every 8 hours as needed for itching. METOPROLOL SUCCINATE XL (TOPROL-XL) 50 MG 24 HR TABLET Take 1 tablet (50 mg) by mouth daily. Do notcrush or chew. ONDANSETRON ODT (ZOFRAN-ODT) 4 MG DISINTEGRATING TABLET Take 1 tablet (4 mg) by mouth every 8 hoursas needed for nausea or vomiting. OXYCODONE (ROXICODONE) 5 MG IMMEDIATE RELEASE TABLET Take 1 tablet (5 mg) by mouth every 8 hours asneeded for severe pain (7-10). PANTOPRAZOLE (PROTONIX) 40 MG EC TABLET Take 1 tablet (40 mg) by mouth 2 times daily (before meals). Do not crush, chew, or split. PANTOPRAZOLE (PROTONIX) 40 MG EC TABLET Take 1 tablet (40 mg) by mouth every morning (before breakfast). Do not crush, chew, or split. RISPERIDONE (RISPERDAL) 1 MG TABLET Take 1 tablet (1 mg) by mouth 2 times daily. SENNA-DOCUSATE SODIUM (SENOKOT-S) 8.6-50 MG TABLET Take 2 tablets by mouth daily. THIAMINE (VITAMIN B1) 100 MG TABLET Take 1 tablet (100 mg) by mouth daily. VENLAFAXINE XR (EFFEXOR XR) 75 MG 24 HR CAPSULE Take 1 capsule (75 mg) by mouth daily (with breakfast). Do not crush or chew. ALLERGIES Patient has no known allergies. FAMILY HISTORY Family History Problem Relation Name Age of Onset No Known Problems Mother No Known Problems Father SOCIAL HISTORY Social History Socioeconomic History Marital status: Single Tobacco Use Smoking status: Every Day Current packs/day: 1.00 Types: Cigarettes Smokeless tobacco: Never Vaping Use Vaping status: Never Used Substance and Sexual Activity Alcohol use: Not Currently Comment: former 2/5 vodka daily. Sober since april 2024 Drug use: Not Currently Types: Cocaine, Methamphetamines, Oxycodone, Fentanyl, Heroin, Benzodiazepines Sexual activity: Not Currently Social Drivers of Health Financial Resource Strain: Low Risk (02/05/2024) Overall Financial Resource Strain (CARDIA) Difficulty of Paying Living Expenses: Not hard at all Recent Concern: Financial Resource Strain - Medium Risk (12/14/2023) Overall Financial Resource Strain (CARDIA) Difficulty of Paying Living Expenses: Somewhat hard Food Insecurity: No Food Insecurity (04/20/2024) Hunger Vital Sign Worried About Running Out of Food in the Last Year: Never true Ran Out of Food in the Last Year: Never true Transportation Needs: No Transportation Needs (04/20/2024) PRAPARE - Transportation Lack of Transportation (Medical): No Lack of Transportation (Non-Medical): No Physical Activity: Inactive (02/05/2024) Exercise Vital Sign Days of Exercise per Week: 0 days Minutes of Exercise per Session: 0 min Stress: Stress Concern Present (02/05/2024) [employer] - Occupational Stress Questionnaire Feeling of Stress : To some extent Social Connections: Socially Isolated (02/05/2024) Social Connection and Isolation Panel [NHANES] Frequency of Communication with Friends and Family: More than three times a week Frequency of Social Gatherings with Friends and Family: More than three times a week Attends [employer] Services: Never Active Member of Clubs or Organizations: No Attends Club or Organization Meetings: Never Marital Status: Never Intimate Partner Violence: Not At Risk (04/20/2024) Humiliation, Afraid, Rape, and Kick questionnaire Fear of Current or Ex-Partner: No Emotionally Abused: No Physically Abused: No Sexually Abused: No Housing Stability: Low Risk (04/20/2024) Housing Stability Vital Sign Unable to Pay for Housing in the Last Year: No Number of Times Moved in the Last Year: 0 Homeless in the Last Year: No Recent Concern: Housing Stability - High Risk (02/05/2024) Housing Stability Vital Sign Unable to Pay for Housing in the Last Year: Patient unable to answer Number of Times Moved in the Last Year: 0 Homeless in the Last Year: Yes SCREENINGS PHYSICAL EXAM ED Triage Vitals Temp Heart Rate Resp BP 06/19/24192606/19/24192606/19/24192606/19/241926 36.3 C (97.4 F) 87 18 (!) 129/92 SpO2 Temp Source Heart Rate Source Patient Position 06/19/24192606/19/24192606/19/24192606/19/242026 99 % Temporal Monitor Sitting BP Location FiO2 (%) 06/19/242026 -- Left arm Physical Exam GENERAL APPEARANCE: Patient appears comfortable sitting in chair no acute distress, no cyanosis, pallor, or diaphoresis. EYES: lids/conjunctiva normal. EARS/NOSE/THROAT: Mucous membranes moist HEAD/NECK: normocephalic atraumatic, no facial trauma, neck is supple. RESPIRATORY: Lungs clear to auscultation without rhonchi, wheezes, rales CARDIAC: Regular rate and rhythm, no edema. Peripheral pulses are symmetrical and equal in upper and lower extremity. ABDOMINAL: Abdomen soft and nondistended. Patient did have epigastric abdominal tenderness on exam.No tenderness of the right upper quadrant negative Li sign. No tenderness to the lower abdomen.No guarding or rigidity. No CVA tenderness. No pulsatile mass. MUSCLES/EXTREMITIES: No abnormal range of motion, no swelling. SKIN: Warm, pink and dry. No rashes, dermatoses, petechiae or lesions. SCREENINGS DIAGNOSTIC RESULTS Procedures/EKG: EKG was reviewed by myself. Physician EKG interpretation can be found in [facility] ED BEDSIDE ULTRASOUND: Performed by ED Physician - none LABS: Labs Reviewed CBC WITH AUTO DIFFERENTIAL - Abnormal Result Value Auto WBC 9.8 RBC 4.35 (*) Hemoglobin 13.1 Hematocrit 39.9 (*) MCV 91.7 MCH 30.1 MCHC 32.8 RDW 14.0 Platelets 260 MPV 10.4 nRBC 0.0 Neutrophils Relative 72.8 Lymphocytes Relative 16.5 Monocytes Relative 8.3 Eosinophils Relative 1.5 Basophils Relative 0.5 Immature Grans % 0.4 Neutrophils Absolute 7.1 Lymphocytes Absolute 1.6 Monocytes Absolute 0.8 Eosinophils Absolute 0.2 Basophils Absolute 0.1 Immature Grans Absolute 0.0 COMPREHENSIVE METABOLIC PANEL - Abnormal SODIUM 139 POTASSIUM 4.2 CHLORIDE 107 CARBON DIOXIDE 21 (*) ANION GAP 11 UREA NITROGEN 5 (*) CREATININE 0.68 (*) GLUCOSE 104 (*) CALCIUM 9.3 AST (SGOT) 90 (*) ALT 50 (*) ALKALINE PHOSPHATASE 161 (*) ALBUMIN 3.7 BILIRUBIN, TOTAL 1.2 (*) TOTAL PROTEIN 7.5 eGFR >90.0 LIPASE - Abnormal LIPASE 65 (*) COMPLETE URINALYSIS WITH REFLEX TO CULTURE - Abnormal Color, Urine Dark Yellow (*) Clarity, Urine Clear pH, Urine 6.0 Leukocytes, Urine Negative Nitrite, Urine Negative Protein, Urine 30 (*) Glucose, Urine Normal Bilirubin, Urine 0.5 (*) Ketones, Urine Trace (*) Urobilinogen, Urine 6 (*) Blood, Urine Negative RBC, Urine 3-5 (*) WBC, Urine 0-2 Squamous Epithelial, Urine 0-2 Bacteria, Urine Negative Mucus, Urine Many (*) SPECIFIC GRAVITY OF URINE (NUMERIC) 1.037 (*) Narrative: A specimen with <=10 WBC is not consistent with inflammation. This specimen will not reflex to aurine culture. HIGH SENSITIVITY TROPONIN, SERIAL BASELINE - Normal Troponin HS Serial Baseline <3 All other labs were within normal range or not returned as of this dictation. EMERGENCY DEPARTMENT COURSE and DIFFERENTIAL DIAGNOSIS/MDM: Vitals: Vitals: 06/19/24 19206/19/24192606/19/24202606/19/24 2136 BP: (!) 129/92 120/68 119/72 BP Location: Left arm Left arm Patient Position: Sitting Sitting Pulse: 87 80 73 Resp: 18 17 15 Temp: 36.3 C (97.4 F) TempSrc: Temporal SpO2: 99% 97% 98% Weight: 99.8 kg (220 lb) Height: 1.854 m (6' 1) External Records Review: Patient was seen in the ED on 06/12/2024 for similar complaints with epigastric abdominal pain. Had a CT of the abdomen with contrast at that time which did show inflammatory changes of the pancreas with no loculated collections or signs of abscess or pseudocyst. Lipase was within normal limits and he had pain control and discharged home. Patient was seen in the ED again yesterday for similar complaints and lipase was slightly elevated but otherwise labs look around baseline. Symptoms were improved and he was discharged home. Patient care supervised by Dr. Adame who individually saw and evaluate the patient. Roro Valdivia is a 38 y.o. male who presented to the emergency department for acute on chronic epigastric abdominal pain as described in the HPI. Patient's vital signs are stable here. On exam did have epigastric abdominal tenderness with no other significant tenderness over the abdomen pulsatilemass. There is no peritoneal signs on exam. He has no chest pain or shortness of breath and considered cardiac etiology but EKG was obtained today and was nonischemic without any other complaints do not suspect ACS. He has equal peripheral pulses is not tachycardic, hypotensive, and story does not fit with aortic dissection or AAA rupture. Differential diagnosis included pancreatitis, cholecystitis, gastritis, UTI. Patient was given IV fluids, Zofran and morphine. Workup: CBC shows no leukocytosis or anemia. CMP shows normal sodium potassium. There is no EMELY. AST and ALT, alk phos and bilirubin were elevated today but are similar compared to yesterday and havebeen chronically elevated in the past. Lipase today 65. UA did have some trace ketones and small red blood cells but no evidence of infection. Reassessment: Pt was still having persistent pain and was also endorsing some chest discomfort. EKGinitially was nonischemic and high sensitive troponin was added on and was less than 3. He was given additional morphine which did help control pain and he was able to tolerate p.o. here without difficulty. On second reevaluation, he states he does feel a lot better and pain is down to a 3 out of 10 severity and is ready to go home. Lipase here is relatively unchanged and do not suspect acute on chronic pancreatitis. He just had a recent CT and has had multiple CTs of the abdomen pelvis and didnot feel repeat was needed at this point time given improving symptoms and unchanged blood work today compared to other visits. Given no lower abdominal tenderness lower suspicion for appendicitis without a white count. He has no urinary symptoms or CVA tenderness and lower suspicion for kidney stone despite blood and urine with no signs of pyelonephritis or UTI on that. EKG is nonischemic and hehas a normal high- sensitivity troponin and do not suspect NSTEMI or ACS. As patient feels improved,vital signs are stable and can tolerate p.o. the likelihood of other entities in the differential is insufficient to justify any further testing for them and feel he can be discharged home close follow-up with his PCP. This was explained to the patient and he felt comfortable with this. Patient wasadvised that persistent or worsening symptoms require further evaluation. All questions were answered and vital signs are stable upon discharge. Medications ondansetron (Zofran) injection 4 mg (4 mg IntraVENous Given 06/19/242024) sodium chloride 0.9 % bolus 1,000 mL (0 mL IntraVENous Stopped 06/19/242136) morphine injection 4 mg (4 mg IntraVENous Given 06/19/242027) morphine injection 4 mg (4 mg IntraVENous Given 06/19/242136) Diagnoses as of 06/19/242351 Epigastric abdominal pain Chronic pancreatitis, unspecified pancreatitis type (HCC) CONSULTS: None PROCEDURES: Unless otherwise noted below, none Procedures FINAL IMPRESSION 1. Epigastric abdominal pain 2. Chronic pancreatitis, unspecified pancreatitis type (HCC) DISPOSITION Discharge 06/19/2024 11:15:46 PM PATIENT REFERRED TO: Tam Hughes DO [id number] [facility] [id number] Schedule an appointment as soon as possible for a visit in 3 days DISCHARGE MEDICATIONS: New Prescriptions No medications on file (Comment: Please note this report has been produced using speech recognition software and may contain errors related to that system including errors in grammar, punctuation, and spelling, as well as words and phrases that may be inappropriate. If there are any questions or concerns please feel freeto contact the dictating provider for clarification.) Fahad Cates PA-C (electronically signed) Emergency Medicine Provider Fahad Cates PA-C 06/19/242352 Cosigned by Cory Adame DO at 06/20/2024 12:32 AM EDT * Cory Adame DO - 06/19/2024 7:23 PM EDT Emergency Department Encounter [facility] ED Patient: Roro Valdivia : 1985 Date of Evaluation: 06/19/2024 ED Supervising Physician: Cory Adame DO I personally evaluated Roro Valdivia and made/approved the management plan and take responsibility for the patient management. This will serve as my Supervisory note and shared attestation. I did perform a substantive portion of the visit including all aspects of the Medical Decision Making. I wore appropriate PPE for the entirety of this encounter. In brief, Roro Valdivia is a 38 y.o. that presents to the emergency department for abdominal pain. Patient endorsing epigastric abdominal pain x 2 days consistent with prior history of chronic pancreatitis. Patient was seen in the ED yesterday symptoms improved and he was discharged home. Patientendorsed a few hours ago he tried eating a hotdog and [place] fries which instantly made pain significantly worse causing him to return. Patient endorses nausea but denies any vomiting diarrhea or constipation. Patient tried ibuprofen prior to arrival without improvement. Patient endorses sobriety from alcohol. Focused exam: Vital signs stable afebrile no acute distress, eyes PERRL, unremarkable pharynx, RRR bilateral equal pulses clear lungs without respiratory stress abdomen soft tender to palpation epigastric without peritoneal findings no CVA tenderness no focal deficits alert and oriented Brief ED course/MDM: 38-year-old male presented to the ED for abdominal pain with nausea similar toprior history of pancreatitis detailed above. Exam as above. Differential diagnosis includes dehydration, electrolyte abnormality, ACS, chronic pancreatitis. Patient endorsed pain rating up his chest. Patient given medication for pain and nausea and IV fluid bolus. EKG sinus without signs of acute ischemia or concerning arrhythmia, chest x-ray without acute disease, CBC without leukocytosis leukopenia or anemia, UA without infection, lipase 65 undetectable troponin. Vital stable no negation forimaging at this time has had multiple CT scans including 1 within the last week with only mild inflammation around pancreas. On reevaluation patient endorsing improvement in pain. Patient stable for discharge with supportive care, return precautions, outpatient follow-up. Patient in agreement with plan. Diagnostics interpreted by me: EKG(s) see above I personally discussed the patient's management with other clinicians: All diagnostic, treatment, and disposition decisions were made by myself in conjunction with the [facility]. For all further details of the patient's emergency department visit, please see their documentation. (Comment: Please note this report has been produced using speech recognition software and may contain errors related to that system including errors in grammar, punctuation, and spelling, as well as words and phrases that may be inappropriate. If there are any questions or concerns please feel freeto contact the dictating provider for clarification.) Cory Adame DO [employer] Cory Adame DO 06/19/24 7190 documented in this [facility]05-11-2025 Physician Emergency department Note* Fahad Cates PA-C - 06/19/2024 7:23 PM EDT Emergency Department Encounter [facility] ED Pt Name: Roro Valdivia Birthdate 1985 Date of evaluation: 06/19/2024 ED Provider: Fahad Cates PA-C CHIEF COMPLAINT Chief Complaint Patient presents with Abdominal Pain Pt arrived to triage for abdominal pain, pt states that the pain started 2 days ago and was here and the doctor told him to come back if the pain got worse. Pt states pain is 8/10 HISTORY OF PRESENT ILLNESS (Location/Symptom, Timing/Onset, Context/Setting, Quality, Duration, Modifying Factors, Severity) Note limiting factors. I wore appropriate PPE for the entirety of this encounter. Roro Valdivia is a 38 y.o. male with a history of chronic pancreatitis, tried syndrome, hypertension, appendectomy, who presents to the emergency department for concerns of acute on chronic epigastric abdominal pain. He states he has had flare of what he thinks is his chronic pancreatitis over the last week or so. He was seen in the emergency department yesterday and symptoms improved and was discharged home. Today, a few hours ago he tried eating a hot dog which instantly made pain significantly worse which is why he is coming here. Is 8 out of 10 severity that is unalleviated with ibuprofen at home. Does feel nauseated but no vomiting. No diarrhea or constipation. No melena or hematochezia. Pain does not radiate. No chest pain or shortness of breath or palpitations. He states his pancreatitis is from history of drinking but he stopped drinking about a month and a half ago. He stateshe did have a lapse roughly a week and a half ago where he took 1 sip of beer but it made him sick and he threw it up and did not drink anything after that. Denies any drug use. Limitations to history: None Outside historians: None REVIEW OF SYSTEMS Review of Systems Please see HPI for pertinent positives and negatives. All other systems reviewed and negative PAST MEDICAL HISTORY Past Medical History: Diagnosis Date Addiction to drug ([facility]/HCC) (HCC) Alcohol abuse Alcohol withdrawal syndrome without complication ([facility]) 06/27/2022 Alcohol withdrawal with inpatient treatment, uncomplicated ([facility]) 03/15/2022 GERD (gastroesophageal reflux disease) History of pancreatitis 01/07/2023 Hypertension Pancreatitis Seizures ([facility]) SVT (supraventricular tachycardia) ([facility]) Tourette syndrome SURGICAL HISTORY Past Surgical History: Procedure Laterality Date APPENDECTOMY CURRENT MEDICATIONS Previous Medications CALCIUM CARBONATE (TUMS) 500 MG CHEWABLE TABLET Chew 1 tablet (500 mg) 3 times daily as needed for heartburn. CLONIDINE (CATAPRES) 0.1 MG TABLET Take 0.1 mg by mouth 2 times daily. DOXYLAMINE (UNISOM) 25 MG TABLET Take 1 tablet (25 mg) by mouth Nightly as needed for sleep. FOLIC ACID (FOLVITE) 1 MG TABLET Take 1 tablet (1 mg) by mouth daily. HYDROXYZINE HCL (ATARAX) 50 MG TABLET Take 1 tablet (50 mg) by mouth every 8 hours as needed for itching. METOPROLOL SUCCINATE XL (TOPROL-XL) 50 MG 24 HR TABLET Take 1 tablet (50 mg) by mouth daily. Do notcrush or chew. ONDANSETRON ODT (ZOFRAN-ODT) 4 MG DISINTEGRATING TABLET Take 1 tablet (4 mg) by mouth every 8 hoursas needed for nausea or vomiting. OXYCODONE (ROXICODONE) 5 MG IMMEDIATE RELEASE TABLET Take 1 tablet (5 mg) by mouth every 8 hours asneeded for severe pain (7-10). PANTOPRAZOLE (PROTONIX) 40 MG EC TABLET Take 1 tablet (40 mg) by mouth 2 times daily (before meals). Do not crush, chew, or split. PANTOPRAZOLE (PROTONIX) 40 MG EC TABLET Take 1 tablet (40 mg) by mouth every morning (before breakfast). Do not crush, chew, or split. RISPERIDONE (RISPERDAL) 1 MG TABLET Take 1 tablet (1 mg) by mouth 2 times daily. SENNA-DOCUSATE SODIUM (SENOKOT-S) 8.6-50 MG TABLET Take 2 tablets by mouth daily. THIAMINE (VITAMIN B1) 100 MG TABLET Take 1 tablet (100 mg) by mouth daily. VENLAFAXINE XR (EFFEXOR XR) 75 MG 24 HR CAPSULE Take 1 capsule (75 mg) by mouth daily (with breakfast). Do not crush or chew. ALLERGIES Patient has no known allergies. FAMILY HISTORY Family History Problem Relation Name Age of Onset No Known Problems Mother No Known Problems Father SOCIAL HISTORY Social History Socioeconomic History Marital status: Single Tobacco Use Smoking status: Every Day Current packs/day: 1.00 Types: Cigarettes Smokeless tobacco: Never Vaping Use Vaping status: Never Used Substance and Sexual Activity Alcohol use: Not Currently Comment: former 2/5 vodka daily. Sober since april 2024 Drug use: Not Currently Types: Cocaine, Methamphetamines, Oxycodone, Fentanyl, Heroin, Benzodiazepines Sexual activity: Not Currently Social Drivers of Health Financial Resource Strain: Low Risk (02/05/2024) Overall Financial Resource Strain (CARDIA) Difficulty of Paying Living Expenses: Not hard at all Recent Concern: Financial Resource Strain - Medium Risk (12/14/2023) Overall Financial Resource Strain (CARDIA) Difficulty of Paying Living Expenses: Somewhat hard Food Insecurity: No Food Insecurity (04/20/2024) Hunger Vital Sign Worried About Running Out of Food in the Last Year: Never true Ran Out of Food in the Last Year: Never true Transportation Needs: No Transportation Needs (04/20/2024) PRAPARE - Transportation Lack of Transportation (Medical): No Lack of Transportation (Non-Medical): No Physical Activity: Inactive (02/05/2024) Exercise Vital Sign Days of Exercise per Week: 0 days Minutes of Exercise per Session: 0 min Stress: Stress Concern Present (02/05/2024) [employer] - Occupational Stress Questionnaire Feeling of Stress : To some extent Social Connections: Socially Isolated (02/05/2024) Social Connection and Isolation Panel [NHANES] Frequency of Communication with Friends and Family: More than three times a week Frequency of Social Gatherings with Friends and Family: More than three times a week Attends [employer] Services: Never Active Member of Clubs or Organizations: No Attends Club or Organization Meetings: Never Marital Status: Never Intimate Partner Violence: Not At Risk (04/20/2024) Humiliation, Afraid, Rape, and Kick questionnaire Fear of Current or Ex-Partner: No Emotionally Abused: No Physically Abused: No Sexually Abused: No Housing Stability: Low Risk (04/20/2024) Housing Stability Vital Sign Unable to Pay for Housing in the Last Year: No Number of Times Moved in the Last Year: 0 Homeless in the Last Year: No Recent Concern: Housing Stability - High Risk (02/05/2024) Housing Stability Vital Sign Unable to Pay for Housing in the Last Year: Patient unable to answer Number of Times Moved in the Last Year: 0 Homeless in the Last Year: Yes SCREENINGS PHYSICAL EXAM ED Triage Vitals Temp Heart Rate Resp BP 06/19/24192606/19/24192606/19/24192606/19/241926 36.3 C (97.4 F) 87 18 (!) 129/92 SpO2 Temp Source Heart Rate Source Patient Position 06/19/24192606/19/24192606/19/24192606/19/242026 99 % Temporal Monitor Sitting BP Location FiO2 (%) 06/19/242026 -- Left arm Physical Exam GENERAL APPEARANCE: Patient appears comfortable sitting in chair no acute distress, no cyanosis, pallor, or diaphoresis. EYES: lids/conjunctiva normal. EARS/NOSE/THROAT: Mucous membranes moist HEAD/NECK: normocephalic atraumatic, no facial trauma, neck is supple. RESPIRATORY: Lungs clear to auscultation without rhonchi, wheezes, rales CARDIAC: Regular rate and rhythm, no edema. Peripheral pulses are symmetrical and equal in upper and lower extremity. ABDOMINAL: Abdomen soft and nondistended. Patient did have epigastric abdominal tenderness on exam.No tenderness of the right upper quadrant negative Li sign. No tenderness to the lower abdomen.No guarding or rigidity. No CVA tenderness. No pulsatile mass. MUSCLES/EXTREMITIES: No abnormal range of motion, no swelling. SKIN: Warm, pink and dry. No rashes, dermatoses, petechiae or lesions. SCREENINGS DIAGNOSTIC RESULTS Procedures/EKG: EKG was reviewed by myself. Physician EKG interpretation can be found in [facility] ED BEDSIDE ULTRASOUND: Performed by ED Physician - none LABS: Labs Reviewed CBC WITH AUTO DIFFERENTIAL - Abnormal Result Value Auto WBC 9.8 RBC 4.35 (*) Hemoglobin 13.1 Hematocrit 39.9 (*) MCV 91.7 MCH 30.1 MCHC 32.8 RDW 14.0 Platelets 260 MPV 10.4 nRBC 0.0 Neutrophils Relative 72.8 Lymphocytes Relative 16.5 Monocytes Relative 8.3 Eosinophils Relative 1.5 Basophils Relative 0.5 Immature Grans % 0.4 Neutrophils Absolute 7.1 Lymphocytes Absolute 1.6 Monocytes Absolute 0.8 Eosinophils Absolute 0.2 Basophils Absolute 0.1 Immature Grans Absolute 0.0 COMPREHENSIVE METABOLIC PANEL - Abnormal SODIUM 139 POTASSIUM 4.2 CHLORIDE 107 CARBON DIOXIDE 21 (*) ANION GAP 11 UREA NITROGEN 5 (*) CREATININE 0.68 (*) GLUCOSE 104 (*) CALCIUM 9.3 AST (SGOT) 90 (*) ALT 50 (*) ALKALINE PHOSPHATASE 161 (*) ALBUMIN 3.7 BILIRUBIN, TOTAL 1.2 (*) TOTAL PROTEIN 7.5 eGFR >90.0 LIPASE - Abnormal LIPASE 65 (*) COMPLETE URINALYSIS WITH REFLEX TO CULTURE - Abnormal Color, Urine Dark Yellow (*) Clarity, Urine Clear pH, Urine 6.0 Leukocytes, Urine Negative Nitrite, Urine Negative Protein, Urine 30 (*) Glucose, Urine Normal Bilirubin, Urine 0.5 (*) Ketones, Urine Trace (*) Urobilinogen, Urine 6 (*) Blood, Urine Negative RBC, Urine 3-5 (*) WBC, Urine 0-2 Squamous Epithelial, Urine 0-2 Bacteria, Urine Negative Mucus, Urine Many (*) SPECIFIC GRAVITY OF URINE (NUMERIC) 1.037 (*) Narrative: A specimen with <=10 WBC is not consistent with inflammation. This specimen will not reflex to aurine culture. HIGH SENSITIVITY TROPONIN, SERIAL BASELINE - Normal Troponin HS Serial Baseline <3 All other labs were within normal range or not returned as of this dictation. EMERGENCY DEPARTMENT COURSE and DIFFERENTIAL DIAGNOSIS/MDM: Vitals: Vitals: 06/19/24192406/19/24192606/19/24202606/19/242135 BP: (!) 129/92 120/68 119/72 BP Location: Left arm Left arm Patient Position: Sitting Sitting Pulse: 87 80 73 Resp: 18 17 15 Temp: 36.3 C (97.4 F) TempSrc: Temporal SpO2: 99% 97% 98% Weight: 99.8 kg (220 lb) Height: 1.854 m (6' 1) External Records Review: Patient was seen in the ED on 06/12/2024 for similar complaints with epigastric abdominal pain. Had a CT of the abdomen with contrast at that time which did show inflammatory changes of the pancreas with no loculated collections or signs of abscess or pseudocyst. Lipase was within normal limits and he had pain control and discharged home. Patient was seen in the ED again yesterday for similar complaints and lipase was slightly elevated but otherwise labs look around baseline. Symptoms were improved and he was discharged home. Patient care supervised by Dr. Adame who individually saw and evaluate the patient. Roro Valdivia is a 38 y.o. male who presented to the emergency department for acute on chronic epigastric abdominal pain as described in the HPI. Patient's vital signs are stable here. On exam did have epigastric abdominal tenderness with no other significant tenderness over the abdomen pulsatilemass. There is no peritoneal signs on exam. He has no chest pain or shortness of breath and considered cardiac etiology but EKG was obtained today and was nonischemic without any other complaints do not suspect ACS. He has equal peripheral pulses is not tachycardic, hypotensive, and story does not fit with aortic dissection or AAA rupture. Differential diagnosis included pancreatitis, cholecystitis, gastritis, UTI. Patient was given IV fluids, Zofran and morphine. Workup: CBC shows no leukocytosis or anemia. CMP shows normal sodium potassium. There is no EMELY. AST and ALT, alk phos and bilirubin were elevated today but are similar compared to yesterday and havebeen chronically elevated in the past. Lipase today 65. UA did have some trace ketones and small red blood cells but no evidence of infection. Reassessment: Pt was still having persistent pain and was also endorsing some chest discomfort. EKGinitially was nonischemic and high sensitive troponin was added on and was less than 3. He was given additional morphine which did help control pain and he was able to tolerate p.o. here without difficulty. On second reevaluation, he states he does feel a lot better and pain is down to a 3 out of 10 severity and is ready to go home. Lipase here is relatively unchanged and do not suspect acute on chronic pancreatitis. He just had a recent CT and has had multiple CTs of the abdomen pelvis and didnot feel repeat was needed at this point time given improving symptoms and unchanged blood work today compared to other visits. Given no lower abdominal tenderness lower suspicion for appendicitis without a white count. He has no urinary symptoms or CVA tenderness and lower suspicion for kidney stone despite blood and urine with no signs of pyelonephritis or UTI on that. EKG is nonischemic and hehas a normal high- sensitivity troponin and do not suspect NSTEMI or ACS. As patient feels improved,vital signs are stable and can tolerate p.o. the likelihood of other entities in the differential is insufficient to justify any further testing for them and feel he can be discharged home close follow-up with his PCP. This was explained to the patient and he felt comfortable with this. Patient wasadvised that persistent or worsening symptoms require further evaluation. All questions were answered and vital signs are stable upon discharge. Medications ondansetron (Zofran) injection 4 mg (4 mg IntraVENous Given 06/19/242024) sodium chloride 0.9 % bolus 1,000 mL (0 mL IntraVENous Stopped 06/19/242136) morphine injection 4 mg (4 mg IntraVENous Given 06/19/242027) morphine injection 4 mg (4 mg IntraVENous Given 06/19/242136) Diagnoses as of 06/19/24 2352 Epigastric abdominal pain Chronic pancreatitis, unspecified pancreatitis type (HCC) CONSULTS: None PROCEDURES: Unless otherwise noted below, none Procedures FINAL IMPRESSION 1. Epigastric abdominal pain 2. Chronic pancreatitis, unspecified pancreatitis type (HCC) DISPOSITION Discharge 06/19/2024 11:15:46 PM PATIENT REFERRED TO: Tam Hughes DO [id number] [facility] [address] Schedule an appointment as soon as possible for a visit in 3 days DISCHARGE MEDICATIONS: New Prescriptions No medications on file (Comment: Please note this report has been produced using speech recognition software and may contain errors related to that system including errors in grammar, punctuation, and spelling, as well as words and phrases that may be inappropriate. If there are any questions or concerns please feel freeto contact the dictating provider for clarification.) Fahad Cates PA-C (electronically signed) Emergency Medicine Provider Fahad Cates PA-C 06/19/24 [id number] Cosigned by Cory Adame DO at 06/20/2024 12:32 AM EDT [id number] Emergency department Note* Cory Adame DO - 06/19/2024 7:23 PM EDT Emergency Department Encounter [facility] ED Patient: Roro Valdivia : 1985 Date of Evaluation: 06/19/2024 ED Supervising Physician: Cory Adame DO I personally evaluated Roro Valdivia and made/approved the management plan and take responsibility for the patient management. This will serve as my Supervisory note and shared attestation. I did perform a substantive portion of the visit including all aspects of the Medical Decision Making. I wore appropriate PPE for the entirety of this encounter. In brief, Roro Valdivia is a 38 y.o. that presents to the emergency department for abdominal pain. Patient endorsing epigastric abdominal pain x 2 days consistent with prior history of chronic pancreatitis. Patient was seen in the ED yesterday symptoms improved and he was discharged home. Patientendorsed a few hours ago he tried eating a hotdog and [place] fries which instantly made pain significantly worse causing him to return. Patient endorses nausea but denies any vomiting diarrhea or constipation. Patient tried ibuprofen prior to arrival without improvement. Patient endorses sobriety from alcohol. Focused exam: Vital signs stable afebrile no acute distress, eyes PERRL, unremarkable pharynx, RRR bilateral equal pulses clear lungs without respiratory stress abdomen soft tender to palpation epigastric without peritoneal findings no CVA tenderness no focal deficits alert and oriented Brief ED course/MDM: 38-year-old male presented to the ED for abdominal pain with nausea similar toprior history of pancreatitis detailed above. Exam as above. Differential diagnosis includes dehydration, electrolyte abnormality, ACS, chronic pancreatitis. Patient endorsed pain rating up his chest. Patient given medication for pain and nausea and IV fluid bolus. EKG sinus without signs of acute ischemia or concerning arrhythmia, chest x-ray without acute disease, CBC without leukocytosis leukopenia or anemia, UA without infection, lipase 65 undetectable troponin. Vital stable no negation forimaging at this time has had multiple CT scans including 1 within the last week with only mild inflammation around pancreas. On reevaluation patient endorsing improvement in pain. Patient stable for discharge with supportive care, return precautions, outpatient follow-up. Patient in agreement with plan. Diagnostics interpreted by me: EKG(s) see above I personally discussed the patient's management with other clinicians: All diagnostic, treatment, and disposition decisions were made by myself in conjunction with the [facility]. For all further details of the patient's emergency department visit, please see their documentation. (Comment: Please note this report has been produced using speech recognition software and may contain errors related to that system including errors in grammar, punctuation, and spelling, as well as words and phrases that may be inappropriate. If there are any questions or concerns please feel freeto contact the dictating provider for clarification.) Cory Adame DO [facility] Cory Adame DO 06/19/24 [address] Phone: [phone] Hospital Discharge instructions* Discharge Instructions* Genie Pavon PA-C - 06/18/2024 4:53 PM EDT In the medical field, there is always a level of diagnostic uncertainty, even if this uncertainty is low. For this reason, it is important to immediately return to the emergency department if you have any new symptoms, worsening symptoms, change of symptoms, or if you have any other concerns. We would be happy to re- evaluate you. Otherwise, please take your medications as prescribed and follow-upas recommended. * Attachments The following attachments cannot be sent through Care Everywhere. * Chronic Pancreatitis Discharge Instructions ([place]) documented in this [facility]05-10-2025 Emergency department Note* Genie Pavon PA-C - 06/18/2024 3:34 PM EDT EMERGENCY DEPARTMENT ENCOUNTER Pt Name: Roro Valdivia Birthdate 1985 Date of evaluation: 06/18/2024 ED Provider: Genie Pavon PA-C CHIEF COMPLAINT Chief Complaint Patient presents with Abdominal Pain Pt presents to ED for abdominal pain. Pt reports abdominal pain has been on and off for two months.Pt reports nausea. Hx chronic pancreatitis. HISTORY OF PRESENT ILLNESS (Location/Symptom, Timing/Onset, Context/Setting, Quality, Duration, Modifying Factors, Severity) Note limiting factors. I wore appropriate PPE for the entirety of this encounter. HPI Roro Valdivia is a 38 y.o. male who presents to the emergency department for evaluation of abdominal pain ongoing for the past month. He endorses a previous history of alcohol induced chronic pancreatitis. He has an MRI scheduled for next week however is presenting to the ED for breakthrough pain. He notes his pain is not necessarily gotten acutely worse however is unable to control his symptoms at home. He notes he was seen here in the ED 6 days ago and was told that his pancreas is mildly inflamed and was discharged home with medications to help control his symptoms with no relief. Deniesany fever, chills. He does endorse associated nausea and vomiting and states that he feels dehydrated. Denies any recent alcohol use. Nursing Notes were reviewed. Limitations to history: None Outside historians: None REVIEW OF SYSTEMS Review of Systems 14 systems reviewed, positives and pertinent negatives as per HPI. All other systems were reviewed and are negative. PAST MEDICAL HISTORY Past Medical History: Diagnosis Date Addiction to drug ([facility]/HCC) (HCC) Alcohol abuse Alcohol withdrawal syndrome without complication ([facility]) 06/27/2022 Alcohol withdrawal with inpatient treatment, uncomplicated ([facility]) 03/15/2022 GERD (gastroesophageal reflux disease) History of pancreatitis 01/07/2023 Hypertension Pancreatitis Seizures ([facility]) SVT (supraventricular tachycardia) ([facility]) Tourette syndrome SURGICAL HISTORY Past Surgical History: Procedure Laterality Date APPENDECTOMY CURRENT MEDICATIONS Discharge Medication List as of 06/18/2024 4:54 PM CONTINUE these medications which have NOT CHANGED Details calcium carbonate (Tums) 500 MG chewable tablet Chew 1 tablet (500 mg) 3 times daily as needed for heartburn., Starting Thu04/20/2024, Until Thu04/20/2025 at 2359, Normal cloNIDine (Catapres) 0.1 MG tablet Take 0.1 mg by mouth 2 times daily., Historical Med doxylamine (Unisom) 25 MG tablet Take 1 tablet (25 mg) by mouth Nightly as needed for sleep., Starting Thu03/30/2024, Until Thu04/29/2024 at 2359, Normal folic acid (Folvite) 1 MG tablet Take 1 tablet (1 mg) by mouth daily., Starting Thu04/07/2024, Until Thu04/07/2025, Normal hydrOXYzine HCl (Atarax) 50 MG tablet Take 1 tablet (50 mg) by mouth every 8 hours as needed for itching., Starting Thu03/30/2024, Until Thu04/29/2024 at 2359, Normal metoprolol succinate XL (Toprol-XL) 50 MG 24 hr tablet Take 1 tablet (50 mg) by mouth daily. Do notcrush or chew., Starting Thu03/30/2024, Until Thu03/30/2025, Normal ondansetron ODT (Zofran-ODT) 4 MG disintegrating tablet Take 1 tablet (4 mg) by mouth every 8 hoursas needed for nausea or vomiting., Starting Thu06/04/2024, Normal oxyCODONE (Roxicodone) 5 MG immediate release tablet Take 1 tablet (5 mg) by mouth every 8 hours asneeded for severe pain (7-10)., Starting Thu06/04/2024, Normal pantoprazole (ProtoNix) 40 MG EC tablet Take 1 tablet (40 mg) by mouth 2 times daily (before meals). Do not crush, chew, or split., Starting Thu12/17/2023, Until Thu12/16/2024, Normal risperiDONE (RisperDAL) 1 MG tablet Take 1 tablet (1 mg) by mouth 2 times daily., Starting Thu04/26/2024, Until Thu04/26/2025, Normal senna-docusate sodium (Senokot-S) 8.6-50 MG tablet Take 2 tablets by mouth daily., Starting Thu04/21/2024, Until Thu04/21/2025, Normal sucralfate (Carafate) 1 g tablet Take 1 tablet (1 g) by mouth 4 times daily (before meals and nightly) for 5 days., Starting 06/13/2024, Until 06/18/2024, Normal thiamine (Vitamin B1) 100 MG tablet Take 1 tablet (100 mg) by mouth daily., Starting Janay 04/07/2024,Normal venlafaxine XR (Effexor XR) 75 MG 24 hr capsule Take 1 capsule (75 mg) by mouth daily (with breakfast). Do not crush or chew., Starting 02/17/2024, Until 04/17/2024, Normal ALLERGIES Patient has no known allergies. FAMILY HISTORY Family History Problem Relation Name Age of Onset No Known Problems Mother No Known Problems Father SOCIAL HISTORY Social History Socioeconomic History Marital status: Single Tobacco Use Smoking status: Every Day Current packs/day: 1.00 Types: Cigarettes Smokeless tobacco: Never Vaping Use Vaping status: Never Used Substance and Sexual Activity Alcohol use: Not Currently Comment: former / vodka daily. Sober since april 2024 Drug use: Not Currently Types: Cocaine, Methamphetamines, Oxycodone, Fentanyl, Heroin, Benzodiazepines Sexual activity: Not Currently Social Drivers of Health Financial Resource Strain: Low Risk (02/05/2024) Overall Financial Resource Strain (CARDIA) Difficulty of Paying Living Expenses: Not hard at all Recent Concern: Financial Resource Strain - Medium Risk (12/14/2023) Overall Financial Resource Strain (CARDIA) Difficulty of Paying Living Expenses: Somewhat hard Food Insecurity: No Food Insecurity (04/20/2024) Hunger Vital Sign Worried About Running Out of Food in the Last Year: Never true Ran Out of Food in the Last Year: Never true Transportation Needs: No Transportation Needs (04/20/2024) PRAPARE - Transportation Lack of Transportation (Medical): No Lack of Transportation (Non-Medical): No Physical Activity: Inactive (02/05/2024) Exercise Vital Sign Days of Exercise per Week: 0 days Minutes of Exercise per Session: 0 min Stress: Stress Concern Present (02/05/2024) [employer] - Occupational Stress Questionnaire Feeling of Stress : To some extent Social Connections: Socially Isolated (02/05/2024) Social Connection and Isolation Panel [NHANES] Frequency of Communication with Friends and Family: More than three times a week Frequency of Social Gatherings with Friends and Family: More than three times a week Attends [employer] Services: Never Active Member of Clubs or Organizations: No Attends Club or Organization Meetings: Never Marital Status: Never Intimate Partner Violence: Not At Risk (04/20/2024) Humiliation, Afraid, Rape, and Kick questionnaire Fear of Current or Ex-Partner: No Emotionally Abused: No Physically Abused: No Sexually Abused: No Housing Stability: Low Risk (04/20/2024) Housing Stability Vital Sign Unable to Pay for Housing in the Last Year: No Number of Times Moved in the Last Year: 0 Homeless in the Last Year: No Recent Concern: Housing Stability - High Risk (02/05/2024) Housing Stability Vital Sign Unable to Pay for Housing in the Last Year: Patient unable to answer Number of Times Moved in the Last Year: 0 Homeless in the Last Year: Yes SCREENINGS PHYSICAL EXAM ED Triage Vitals [06/18/24 1535] Temp Heart Rate Resp BP 36.3 C (97.3 F) 99 19 (!) 146/99 SpO2 Temp Source Heart Rate Source Patient Position 100 % Temporal Monitor Sitting BP Location FiO2 (%) Right arm -- Physical Exam Vitals and nursing note reviewed. Constitutional: General: He is not in acute distress. Appearance: He is well-developed. He is not ill-appearing. HENT: Head: Normocephalic and atraumatic. Eyes: Conjunctiva/sclera: Conjunctivae normal. Cardiovascular: Rate and Rhythm: Normal rate and regular rhythm. Heart sounds: No murmur heard. Pulmonary: Effort: Pulmonary effort is normal. No respiratory distress. Breath sounds: Normal breath sounds. Abdominal: Palpations: Abdomen is soft. Tenderness: There is abdominal tenderness in the epigastric area and left upper quadrant. Musculoskeletal: General: No swelling. Cervical back: Neck supple. Skin: General: Skin is warm and dry. Capillary Refill: Capillary refill takes less than 2 seconds. Neurological: Mental Status: He is alert. Psychiatric: Mood and Affect: Mood normal. DIAGNOSTIC RESULTS RADIOLOGY (Per Emergency Physician): Interpretation per the Radiologist below, if available at the time of this note: No orders to display LABS: Labs Reviewed COMPREHENSIVE METABOLIC PANEL - Abnormal Result Value SODIUM 138 POTASSIUM 4.0 CHLORIDE 105 CARBON DIOXIDE 23 ANION GAP 10 UREA NITROGEN 4 (*) CREATININE 0.64 (*) GLUCOSE 120 (*) CALCIUM 9.7 AST (SGOT) 91 (*) ALT 59 (*) ALKALINE PHOSPHATASE 170 (*) ALBUMIN 3.9 BILIRUBIN, TOTAL 1.2 (*) TOTAL PROTEIN 8.2 eGFR >90.0 LIPASE - Abnormal LIPASE 60 (*) CBC WITH AUTO DIFFERENTIAL - Normal Auto WBC 8.1 RBC 4.65 Hemoglobin 14.1 Hematocrit 42.8 MCV 92.0 MCH 30.3 MCHC 32.9 RDW 14.1 Platelets 299 MPV 10.6 nRBC 0.0 Neutrophils Relative 64.3 Lymphocytes Relative 26.6 Monocytes Relative 7.1 Eosinophils Relative 1.1 Basophils Relative 0.4 Immature Grans % 0.5 Neutrophils Absolute 5.2 Lymphocytes Absolute 2.2 Monocytes Absolute 0.6 Eosinophils Absolute 0.1 Basophils Absolute 0.0 Immature Grans Absolute 0.0 ETHANOL - Normal ETHANOL IN SER/PLAS <10 Narrative: 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 NOTE: This result is for medical treatment only. Analysis performed using non- forensic procedures. COMPLETE URINALYSIS WITH REFLEX TO CULTURE All other labs were within normal range or not returned as of this dictation. EMERGENCY DEPARTMENT COURSE and DIFFERENTIAL DIAGNOSIS/MDM: Vitals: Vitals: 06/18/24 1535 06/18/24 1535 06/18/24 1659 BP: (!) 146/99 (!) 142/94 BP Location: Right arm Patient Position: Sitting Pulse: 99 90 Resp: 19 16 Temp: 36.3 C (97.3 F) TempSrc: Temporal SpO2: 100% Weight: 95.3 kg (210 lb) Height: 1.854 m (6' 1) Medications sodium chloride 0.9 % bolus 1,000 mL (0 mL IntraVENous Stopped 06/18/24 1657) ondansetron (Zofran) injection 4 mg (4 mg IntraVENous Given 06/18/24 1557) HYDROmorphone (Dilaudid) injection 1 mg (1 mg IntraVENous Given 06/18/24 1557) I independently evaluated the patient with supervising attending physician available as needed for collaboration. In brief, Roro Valdivia is a 38 y.o. male who presented to the emergency department for evaluation of abdominal pain ongoing for the past month, no acute worsening. PMH of chronic pancreatitis, alcohol induced. Denies any recent alcohol use. Presents to the ED with a blood pressure of 146/99, afebrile without tachycardia. He is in no acute distress on exam, reproducible epigastric and LUQ abdominal tenderness appreciated Without peritoneal signs. Refer to history and physical exam for the details. Nursing notes and medical records reviewed, patient was seen in the ED on 06/14/2024, CT was obtained which demonstrated mild inflammation of the pancreas with a normal lipase. He was ultimately discharged home. He has also been seen prior to that on 06/04, 05/30, 05/22, 05/07 for the same symptoms.He has had multiple CTs within the past [address] however previous CT there was already demonstrating some mild inflammation about the pancreas, will assess lipase, pain control and reassess. Patient in agreement with this plan. Differential considerations included electrolyte derangement versus EMELY versus pancreatitis versus infection Initial medical management includes IV fluids, Zofran, Dilaudid Initial workup includes CBC, CMP, lipase, UA, ethanol level Consider repeat imaging however patient states pain has not gotten acutely worse, similar to his baseline. Abdomen is soft, no peritoneal signs. Will obtain labs and reassess if repeat CT imaging is acutely warranted at this time. Upon reassessment patient is resting comfortably bed in no acute distress, vitals have remained hemodynamically stable throughout the course. Pain is improved her medications here. Lab workup results CBC shows no leukocytosis or anemia. CMP shows no acute electro derangement, newtransaminitis or EMELY. Lipase is 60. Ethanol level is negative. Results were discussed with the patient. Pain is controlled here. Given that he has had multiple EDvisits for similar symptoms we discussed final disposition including admission versus discharge with close outpatient follow-up. Patient states that he does not want to be admitted and prefers to be discharged as he has a scheduled outpatient MRI and an appoint with his GI specialist soon. Shared Decision Making I had a long discussion with the patient and/or visitors regarding risks/benefits of further testing or admission. They decided to forego any further testing or admission. They are aware of the risks/benefits in this decision and have voiced understanding. Chronic conditions contributing to patients presentation include: Chronic pancreatitis Discussed ED return precautions, recommended consulting their primary doctor or returning to the EDif there are any new or worsening of symptoms, particularly acute onset abdominal pain, fever, chills, intractable nausea vomiting Follow-up with PCP in 1 week I Genie Pavon PA-C am the primary substance abuse counselor of record. PROCEDURES: Unless otherwise noted below, none Procedures FINAL IMPRESSION 1. Alcohol-induced chronic pancreatitis (CMS/HCC) (HCC) DISPOSITION Discharge 06/18/2024 04:31:21 PM PATIENT REFERRED TO: [facility] ED [address] [facility] [address] Go to If symptoms worsen Tam Hughes DO [address] [place] [address] Schedule an appointment as soon as possible for a visit in 1 week DISCHARGE MEDICATIONS: Discharge Medication List as of 06/18/2024 4:54 PM (Comment: Please note this report has been produced using speech recognition software and may contain errors related to that system including errors in grammar, punctuation, and spelling, as well as words and phrases that may be inappropriate. If there are any questions or concerns please feel freeto contact the dictating provider for clarification.) Genie Pavon PA-C (electronically signed) Emergency Medicine Provider Genie Pavon PA-C 06/18/24 1706 documented in this [facility]05-10-2025 Physician Emergency department Note* Genie Pavon PA-C - 06/18/2024 3:34 PM EDT EMERGENCY DEPARTMENT ENCOUNTER Pt Name: Roro Valdivia Birthdate 1985 Date of evaluation: 06/18/2024 ED Provider: Genie Pavon PA-C CHIEF COMPLAINT Chief Complaint Patient presents with Abdominal Pain Pt presents to ED for abdominal pain. Pt reports abdominal pain has been on and off for two months.Pt reports nausea. Hx chronic pancreatitis. HISTORY OF PRESENT ILLNESS (Location/Symptom, Timing/Onset, Context/Setting, Quality, Duration, Modifying Factors, Severity) Note limiting factors. I wore appropriate PPE for the entirety of this encounter. HPI Roro Valdivia is a 38 y.o. male who presents to the emergency department for evaluation of abdominal pain ongoing for the past month. He endorses a previous history of alcohol induced chronic pancreatitis. He has an MRI scheduled for next week however is presenting to the ED for breakthrough pain. He notes his pain is not necessarily gotten acutely worse however is unable to control his symptoms at home. He notes he was seen here in the ED 6 days ago and was told that his pancreas is mildly inflamed and was discharged home with medications to help control his symptoms with no relief. Deniesany fever, chills. He does endorse associated nausea and vomiting and states that he feels dehydrated. Denies any recent alcohol use. Nursing Notes were reviewed. Limitations to history: None Outside historians: None REVIEW OF SYSTEMS Review of Systems 14 systems reviewed, positives and pertinent negatives as per HPI. All other systems were reviewed and are negative. PAST MEDICAL HISTORY Past Medical History: Diagnosis Date Addiction to drug ([facility]) ([facility]) Alcohol abuse Alcohol withdrawal syndrome without complication ([facility]) 06/27/2022 Alcohol withdrawal with inpatient treatment, uncomplicated ([facility]) 03/15/2022 GERD (gastroesophageal reflux disease) History of pancreatitis 01/07/2023 Hypertension Pancreatitis Seizures ([facility]) SVT (supraventricular tachycardia) ([facility]) Tourette syndrome SURGICAL HISTORY Past Surgical History: Procedure Laterality Date APPENDECTOMY CURRENT MEDICATIONS Discharge Medication List as of 06/18/2024 4:54 PM CONTINUE these medications which have NOT CHANGED Details calcium carbonate (Tums) 500 MG chewable tablet Chew 1 tablet (500 mg) 3 times daily as needed for heartburn., Starting Thu04/20/2024, Until Thu04/20/2025 at 2359, Normal cloNIDine (Catapres) 0.1 MG tablet Take 0.1 mg by mouth 2 times daily., Historical Med doxylamine (Unisom) 25 MG tablet Take 1 tablet (25 mg) by mouth Nightly as needed for sleep., Starting Thu03/30/2024, Until Thu04/29/2024 at 2359, Normal folic acid (Folvite) 1 MG tablet Take 1 tablet (1 mg) by mouth daily., Starting Janay 04/07/2024, Until Thu04/07/2025, Normal hydrOXYzine HCl (Atarax) 50 MG tablet Take 1 tablet (50 mg) by mouth every 8 hours as needed for itching., Starting Thu03/30/2024, Until Thu04/29/2024 at 2359, Normal metoprolol succinate XL (Toprol-XL) 50 MG 24 hr tablet Take 1 tablet (50 mg) by mouth daily. Do notcrush or chew., Starting Thu03/30/2024, Until Thu03/30/2025, Normal ondansetron ODT (Zofran-ODT) 4 MG disintegrating tablet Take 1 tablet (4 mg) by mouth every 8 hoursas needed for nausea or vomiting., Starting 06/04/2024, Normal oxyCODONE (Roxicodone) 5 MG immediate release tablet Take 1 tablet (5 mg) by mouth every 8 hours asneeded for severe pain (7-10)., Starting Thu06/04/2024, Normal pantoprazole (ProtoNix) 40 MG EC tablet Take 1 tablet (40 mg) by mouth 2 times daily (before meals). Do not crush, chew, or split., Starting Thu12/17/2023, Until Thu12/16/2024, Normal risperiDONE (RisperDAL) 1 MG tablet Take 1 tablet (1 mg) by mouth 2 times daily., Starting Thu04/26/2024, Until Thu04/26/2025, Normal senna-docusate sodium (Senokot-S) 8.6-50 MG tablet Take 2 tablets by mouth daily., Starting Thu04/21/2024, Until Thu04/21/2025, Normal sucralfate (Carafate) 1 g tablet Take 1 tablet (1 g) by mouth 4 times daily (before meals and nightly) for 5 days., Starting Thu06/13/2024, Until Thu06/18/2024, Normal thiamine (Vitamin B1) 100 MG tablet Take 1 tablet (100 mg) by mouth daily., Starting Thu04/07/2024,Normal venlafaxine XR (Effexor XR) 75 MG 24 hr capsule Take 1 capsule (75 mg) by mouth daily (with breakfast). Do not crush or chew., Starting Thu02/17/2024, Until Thu04/17/2024, Normal ALLERGIES Patient has no known allergies. FAMILY HISTORY Family History Problem Relation Name Age of Onset No Known Problems Mother No Known Problems Father SOCIAL HISTORY Social History Socioeconomic History Marital status: Single Tobacco Use Smoking status: Every Day Current packs/day: 1.00 Types: Cigarettes Smokeless tobacco: Never Vaping Use Vaping status: Never Used Substance and Sexual Activity Alcohol use: Not Currently Comment: former 2/5 vodka daily. Sober since april 2024 Drug use: Not Currently Types: Cocaine, Methamphetamines, Oxycodone, Fentanyl, Heroin, Benzodiazepines Sexual activity: Not Currently Social Drivers of Health Financial Resource Strain: Low Risk (02/05/2024) Overall Financial Resource Strain (CARDIA) Difficulty of Paying Living Expenses: Not hard at all Recent Concern: Financial Resource Strain - Medium Risk (12/14/2023) Overall Financial Resource Strain (CARDIA) Difficulty of Paying Living Expenses: Somewhat hard Food Insecurity: No Food Insecurity (04/20/2024) Hunger Vital Sign Worried About Running Out of Food in the Last Year: Never true Ran Out of Food in the Last Year: Never true Transportation Needs: No Transportation Needs (04/20/2024) PRAPARE - Transportation Lack of Transportation (Medical): No Lack of Transportation (Non-Medical): No Physical Activity: Inactive (02/05/2024) Exercise Vital Sign Days of Exercise per Week: 0 days Minutes of Exercise per Session: 0 min Stress: Stress Concern Present (02/05/2024) [employer] - Occupational Stress Questionnaire Feeling of Stress : To some extent Social Connections: Socially Isolated (02/05/2024) Social Connection and Isolation Panel [NHANES] Frequency of Communication with Friends and Family: More than three times a week Frequency of Social Gatherings with Friends and Family: More than three times a week Attends [employer] Services: Never Active Member of Clubs or Organizations: No Attends Club or Organization Meetings: Never Marital Status: Never Intimate Partner Violence: Not At Risk (04/20/2024) Humiliation, Afraid, Rape, and Kick questionnaire Fear of Current or Ex-Partner: No Emotionally Abused: No Physically Abused: No Sexually Abused: No Housing Stability: Low Risk (04/20/2024) Housing Stability Vital Sign Unable to Pay for Housing in the Last Year: No Number of Times Moved in the Last Year: 0 Homeless in the Last Year: No Recent Concern: Housing Stability - High Risk (02/05/2024) Housing Stability Vital Sign Unable to Pay for Housing in the Last Year: Patient unable to answer Number of Times Moved in the Last Year: 0 Homeless in the Last Year: Yes SCREENINGS PHYSICAL EXAM ED Triage Vitals [06/18/24 1535] Temp Heart Rate Resp BP 36.3 C (97.3 F) 99 19 (!) 146/99 SpO2 Temp Source Heart Rate Source Patient Position 100 % Temporal Monitor Sitting BP Location FiO2 (%) Right arm -- Physical Exam Vitals and nursing note reviewed. Constitutional: General: He is not in acute distress. Appearance: He is well-developed. He is not ill-appearing. HENT: Head: Normocephalic and atraumatic. Eyes: Conjunctiva/sclera: Conjunctivae normal. Cardiovascular: Rate and Rhythm: Normal rate and regular rhythm. Heart sounds: No murmur heard. Pulmonary: Effort: Pulmonary effort is normal. No respiratory distress. Breath sounds: Normal breath sounds. Abdominal: Palpations: Abdomen is soft. Tenderness: There is abdominal tenderness in the epigastric area and left upper quadrant. Musculoskeletal: General: No swelling. Cervical back: Neck supple. Skin: General: Skin is warm and dry. Capillary Refill: Capillary refill takes less than 2 seconds. Neurological: Mental Status: He is alert. Psychiatric: Mood and Affect: Mood normal. DIAGNOSTIC RESULTS RADIOLOGY (Per Emergency Physician): Interpretation per the Radiologist below, if available at the time of this note: No orders to display LABS: Labs Reviewed COMPREHENSIVE METABOLIC PANEL - Abnormal Result Value SODIUM 138 POTASSIUM 4.0 CHLORIDE 105 CARBON DIOXIDE 23 ANION GAP 10 UREA NITROGEN 4 (*) CREATININE 0.64 (*) GLUCOSE 120 (*) CALCIUM 9.7 AST (SGOT) 91 (*) ALT 59 (*) ALKALINE PHOSPHATASE 170 (*) ALBUMIN 3.9 BILIRUBIN, TOTAL 1.2 (*) TOTAL PROTEIN 8.2 eGFR >90.0 LIPASE - Abnormal LIPASE 60 (*) CBC WITH AUTO DIFFERENTIAL - Normal Auto WBC 8.1 RBC 4.65 Hemoglobin 14.1 Hematocrit 42.8 MCV 92.0 MCH 30.3 MCHC 32.9 RDW 14.1 Platelets 299 MPV 10.6 nRBC 0.0 Neutrophils Relative 64.3 Lymphocytes Relative 26.6 Monocytes Relative 7.1 Eosinophils Relative 1.1 Basophils Relative 0.4 Immature Grans % 0.5 Neutrophils Absolute 5.2 Lymphocytes Absolute 2.2 Monocytes Absolute 0.6 Eosinophils Absolute 0.1 Basophils Absolute 0.0 Immature Grans Absolute 0.0 ETHANOL - Normal ETHANOL IN SER/PLAS <10 Narrative: 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 NOTE: This result is for medical treatment only. Analysis performed using non- forensic procedures. COMPLETE URINALYSIS WITH REFLEX TO CULTURE All other labs were within normal range or not returned as of this dictation. EMERGENCY DEPARTMENT COURSE and DIFFERENTIAL DIAGNOSIS/MDM: Vitals: Vitals: 06/18/24 1535 06/18/24 1535 06/18/24 1659 BP: (!) 146/99 (!) 142/94 BP Location: Right arm Patient Position: Sitting Pulse: 99 90 Resp: 19 16 Temp: 36.3 C (97.3 F) TempSrc: Temporal SpO2: 100% Weight: 95.3 kg (210 lb) Height: 1.854 m (6' 1) Medications sodium chloride 0.9 % bolus 1,000 mL (0 mL IntraVENous Stopped 06/18/24 165) ondansetron (Zofran) injection 4 mg (4 mg IntraVENous Given 06/18/24 155) HYDROmorphone (Dilaudid) injection 1 mg (1 mg IntraVENous Given 06/18/24 155) I independently evaluated the patient with supervising attending physician available as needed for collaboration. In brief, Roro Valdivia is a 38 y.o. male who presented to the emergency department for evaluation of abdominal pain ongoing for the past month, no acute worsening. PMH of chronic pancreatitis, alcohol induced. Denies any recent alcohol use. Presents to the ED with a blood pressure of 146/99, afebrile without tachycardia. He is in no acute distress on exam, reproducible epigastric and LUQ abdominal tenderness appreciated Without peritoneal signs. Refer to history and physical exam for the details. Nursing notes and medical records reviewed, patient was seen in the ED on 06/14/2024, CT was obtained which demonstrated mild inflammation of the pancreas with a normal lipase. He was ultimately discharged home. He has also been seen prior to that on 06/04, 05/30, 05/22, 05/07 for the same symptoms.He has had multiple CTs within the past [address] however previous CT there was already demonstrating some mild inflammation about the pancreas, will assess lipase, pain control and reassess. Patient in agreement with this plan. Differential considerations included electrolyte derangement versus EMELY versus pancreatitis versus infection Initial medical management includes IV fluids, Zofran, Dilaudid Initial workup includes CBC, CMP, lipase, UA, ethanol level Consider repeat imaging however patient states pain has not gotten acutely worse, similar to his baseline. Abdomen is soft, no peritoneal signs. Will obtain labs and reassess if repeat CT imaging is acutely warranted at this time. Upon reassessment patient is resting comfortably bed in no acute distress, vitals have remained hemodynamically stable throughout the course. Pain is improved her medications here. Lab workup results CBC shows no leukocytosis or anemia. CMP shows no acute electro derangement, newtransaminitis or EMELY. Lipase is 60. Ethanol level is negative. Results were discussed with the patient. Pain is controlled here. Given that he has had multiple EDvisits for similar symptoms we discussed final disposition including admission versus discharge with close outpatient follow-up. Patient states that he does not want to be admitted and prefers to be discharged as he has a scheduled outpatient MRI and an appoint with his GI specialist soon. Shared Decision Making I had a long discussion with the patient and/or visitors regarding risks/benefits of further testing or admission. They decided to forego any further testing or admission. They are aware of the risks/benefits in this decision and have voiced understanding. Chronic conditions contributing to patients presentation include: Chronic pancreatitis Discussed ED return precautions, recommended consulting their primary doctor or returning to the EDif there are any new or worsening of symptoms, particularly acute onset abdominal pain, fever, chills, intractable nausea vomiting Follow-up with PCP in 1 week I Genie Pavon PA-C am the primary substance abuse counselor of record. PROCEDURES: Unless otherwise noted below, none Procedures FINAL IMPRESSION 1. Alcohol-induced chronic pancreatitis (CMS/HCC) (HCC) DISPOSITION Discharge 06/18/2024 04:31:21 PM PATIENT REFERRED TO: [facility] ED [address] [facility] [address] Go to If symptoms worsen Tam Hughes DO [address] [place] [id number] Schedule an appointment as soon as possible for a visit in 1 week DISCHARGE MEDICATIONS: Discharge Medication List as of 06/18/2024 4:54 PM (Comment: Please note this report has been produced using speech recognition software and may contain errors related to that system including errors in grammar, punctuation, and spelling, as well as words and phrases that may be inappropriate. If there are any questions or concerns please feel freeto contact the dictating provider for clarification.) Genie Pavon PA-C (electronically signed) Emergency Medicine Provider Genie Pavon PA-C 06/18/24 1706 [id number] NotePA request submitted by [facility] referrals, in review. [facility]05-05-2025 Hospital Discharge instructions* Discharge Instructions* Donald Hill Jr., DO - 06/13/2024 12:30 AM EDT Thank you for choosing [facility] Emergency Department and allowing me to take care of you to date. If your symptoms are not improving, begin to worsen, new symptoms develop/additional concerns arise, please return to the Emergency Department at any time for further evaluation and treatment. . Dr. Donald Hill Jr. D.O. Follow-up with your primary care doctor, contact information provided, or any emergency department hide as needed And with your GI doctor tomorrow to review imaging to determine if further intervention necessary prior to your MRI * Attachments The following attachments cannot be sent through Care Everywhere. * Chronic Pancreatitis ([place]) * Gastritis Discharge Instructions ([place]) documented in this [facility]05-04-2025 Emergency department Note* Donald Hill Jr., DO - 06/12/2024 8:39 PM EDT EMERGENCY DEPARTMENT ENCOUNTER Pt Name: Roro Valdivia Birthdate 1985 Date of evaluation: 06/12/2024 ED Provider: Donald Hill DO CHIEF COMPLAINT Chief Complaint Patient presents with Abdominal Pain States that he has been battling pancreatitis for 1 month. Has MRI scheduled for 06/20 but the pain brought him in tonight. +nausea. +vomiting HISTORY OF PRESENT ILLNESS (Location/Symptom, Timing/Onset, Context/Setting, Quality, Duration, Modifying Factors, Severity) Note limiting factors. I wore appropriate PPE for the entirety of this encounter. HPI Roro Valdivia is a 38 y.o. who presents to the emergency department patient states he said chronic pancreatitis associated epigastric abdominal pain. Still having nausea and vomiting. Contact his GI doctor told to come to the emergency department. States taking Protonix daily significant relief. Did have episode of blood in emesis 2 days prior when he contacted his GI physician. Patient denies current CP, sob, fever, chills, dark tarry stool, bright red blood per rectum, headache, focal acuteweakness, loss/change of sensation or any other complaints at this time. PMH/PSHx/Meds/Allergies/SH/FH as per nursing documentation and reviewed. Nursing Notes were reviewed. History obtained from : patient Outside records reviewed: N/A History/Collateral information obtained from: N/A Patient's PDMP reviewed personally ED Course as of 06/13/24 0031 Sun June 12, 2024 2234 Hemoglobin stable no leukocytosis will continue to monitor and hydrate [SL] 2333 Discussed results with patient, patient stated he had not drank alcohol in some time but informed of his alcohol blood currently that will aggravate symptoms, patient admits slipped up, will repeat CT patient states lipase is sometimes normal when he does have pancreatitis [SL] [facility] June 13, 2024 0028 Patient no vomiting in emergency department, discussed results will give additional medicationfor GI protection he will follow this GI doctor tomorrow [SL] 0029 No leukocytosis no elevation of lipase transaminases decreased from previous bilirubin normal limits [SL] ED Course User Index [SL] Donald Hill Jr., DO Diagnoses as of 06/13/24 0031 Abdominal pain, unspecified abdominal location Chronic pancreatitis, unspecified pancreatitis type (HCC) Discussion/ MDM: Differential diagnosis includes but not limited to: Acute pancreatitis, chronic pancreatitis, gastritis, viral syndrome All results/imaging if obtained reviewed and interpreted, results trended/compared with previous levels if available symptomatically improved in emergency department Discussed all results obtained from imaging or labs with patient and those present with patient s permission, provided opportunity to ask any further questions, all questions answered to the best of my ability, feels comfortable with discharge and plan to follow up with PCP and GI specialist as outpatient. Will return at any time if symptoms worsen, new symptoms develop, or any new concerns arise. Chart created with voice recognition software, errors may be present due to software s interpretation REVIEW OF SYSTEMS Review of Systems Pertinent positives and negatives as per HPI PAST MEDICAL HISTORY Past Medical History: Diagnosis Date Addiction to drug ([facility]/HCC) ([facility]) Alcohol abuse Alcohol withdrawal syndrome without complication ([facility]) 06/27/2022 Alcohol withdrawal with inpatient treatment, uncomplicated ([facility]) 03/15/2022 GERD (gastroesophageal reflux disease) History of pancreatitis 01/07/2023 Hypertension Pancreatitis Seizures ([facility]) SVT (supraventricular tachycardia) ([facility]) Tourette syndrome SURGICAL HISTORY Past Surgical History: Procedure Laterality Date APPENDECTOMY CURRENT MEDICATIONS Previous Medications CALCIUM CARBONATE (TUMS) 500 MG CHEWABLE TABLET Chew 1 tablet (500 mg) 3 times daily as needed for heartburn. CLONIDINE (CATAPRES) 0.1 MG TABLET Take 0.1 mg by mouth 2 times daily. DOXYLAMINE (UNISOM) 25 MG TABLET Take 1 tablet (25 mg) by mouth Nightly as needed for sleep. FOLIC ACID (FOLVITE) 1 MG TABLET Take 1 tablet (1 mg) by mouth daily. HYDROXYZINE HCL (ATARAX) 50 MG TABLET Take 1 tablet (50 mg) by mouth every 8 hours as needed for itching. METOPROLOL SUCCINATE XL (TOPROL-XL) 50 MG 24 HR TABLET Take 1 tablet (50 mg) by mouth daily. Do notcrush or chew. ONDANSETRON ODT (ZOFRAN-ODT) 4 MG DISINTEGRATING TABLET Take 1 tablet (4 mg) by mouth every 8 hoursas needed for nausea or vomiting. OXYCODONE (ROXICODONE) 5 MG IMMEDIATE RELEASE TABLET Take 1 tablet (5 mg) by mouth every 8 hours asneeded for severe pain (7-10). PANTOPRAZOLE (PROTONIX) 40 MG EC TABLET Take 1 tablet (40 mg) by mouth 2 times daily (before meals). Do not crush, chew, or split. PANTOPRAZOLE (PROTONIX) 40 MG EC TABLET Take 1 tablet (40 mg) by mouth every morning (before breakfast). Do not crush, chew, or split. RISPERIDONE (RISPERDAL) 1 MG TABLET Take 1 tablet (1 mg) by mouth 2 times daily. SENNA-DOCUSATE SODIUM (SENOKOT-S) 8.6-50 MG TABLET Take 2 tablets by mouth daily. THIAMINE (VITAMIN B1) 100 MG TABLET Take 1 tablet (100 mg) by mouth daily. VENLAFAXINE XR (EFFEXOR XR) 75 MG 24 HR CAPSULE Take 1 capsule (75 mg) by mouth daily (with breakfast). Do not crush or chew. ALLERGIES Patient has no known allergies. FAMILY HISTORY Family History Problem Relation Name Age of Onset No Known Problems Mother No Known Problems Father SOCIAL HISTORY Social History Socioeconomic History Marital status: Single Tobacco Use Smoking status: Every Day Current packs/day: 1.00 Types: Cigarettes Smokeless tobacco: Never Vaping Use Vaping status: Never Used Substance and Sexual Activity Alcohol use: Yes Comment: 2/5 vodka daily Drug use: Not Currently Types: Cocaine, Methamphetamines, Oxycodone, Fentanyl, Heroin, Benzodiazepines Sexual activity: Not Currently Social Drivers of Health Financial Resource Strain: Low Risk (02/05/2024) Overall Financial Resource Strain (CARDIA) Difficulty of Paying Living Expenses: Not hard at all Recent Concern: Financial Resource Strain - Medium Risk (12/14/2023) Overall Financial Resource Strain (CARDIA) Difficulty of Paying Living Expenses: Somewhat hard Food Insecurity: No Food Insecurity (04/20/2024) Hunger Vital Sign Worried About Running Out of Food in the Last Year: Never true Ran Out of Food in the Last Year: Never true Transportation Needs: No Transportation Needs (04/20/2024) PRAPARE - Transportation Lack of Transportation (Medical): No Lack of Transportation (Non-Medical): No Physical Activity: Inactive (02/05/2024) Exercise Vital Sign Days of Exercise per Week: 0 days Minutes of Exercise per Session: 0 min Stress: Stress Concern Present (02/05/2024) [employer] - Occupational Stress Questionnaire Feeling of Stress : To some extent Social Connections: Socially Isolated (02/05/2024) Social Connection and Isolation Panel [NHANES] Frequency of Communication with Friends and Family: More than three times a week Frequency of Social Gatherings with Friends and Family: More than three times a week Attends [employer] Services: Never Active Member of Clubs or Organizations: No Attends Club or Organization Meetings: Never Marital Status: Never Intimate Partner Violence: Not At Risk (04/20/2024) Humiliation, Afraid, Rape, and Kick questionnaire Fear of Current or Ex-Partner: No Emotionally Abused: No Physically Abused: No Sexually Abused: No Housing Stability: Low Risk (04/20/2024) Housing Stability Vital Sign Unable to Pay for Housing in the Last Year: No Number of Times Moved in the Last Year: 0 Homeless in the Last Year: No Recent Concern: Housing Stability - High Risk (02/05/2024) Housing Stability Vital Sign Unable to Pay for Housing in the Last Year: Patient unable to answer Number of Times Moved in the Last Year: 0 Homeless in the Last Year: Yes PHYSICAL EXAM ED Triage Vitals [06/12/242054] Temp Heart Rate Resp BP 37.8 C (100 F) (!) 112 20 (!) 133/94 SpO2 Temp Source Heart Rate Source Patient Position 98 % Temporal Monitor -- BP Location FiO2 (%) -- -- Physical Exam PHYSICIAL EXAM: Vitals reviewed GENERAL: Awake and alert in room, nontoxic-appearing appears nourished and normally developed. Vital signs as documented. EYES: Head exam is unremarkable. No scleral icterus HEENT: Mucous membranes moist. Nares patent without copious rhinorrhea. LUNGS: Lungs are clear to auscultation, -r/r/w without any respiratory distress.maintaining adequate SpO2 on room air no conversational dyspnea CARDIAC: Rhythm is regular. No dysrhythmias or murmurs. ABDOMEN: + mild tenderness palpation epigastric area, otherwise Soft, non- tender, non-distended, norebound/guarding, with no obvious masses EXTREMITIES: No peripheral edema, with no obvious deformities. No asymmetric swelling of distal lower extremities, no calf pain to palpation, no exam findings concerning for deep venous thrombosis, well-perfused SKIN: Good color, with no significant rashes. No pallor. NEURO: No obvious neurological deficits, normal sensation and strength bilaterally. Patient able toambulate. PSYCH: Mood and affect normal. Appropriate for age. DIAGNOSTIC RESULTS RADIOLOGY (Per Emergency Physician): Interpretation per the Radiologist below, if available at the time of this note: CT abdomen pelvis w contrast Final Result 1. Mild inflammatory changes about the pancreas. 2. Trace free fluid along Gerota's fascia on the left. 3. No loculated collections to suggest an abscess or organized pseudocyst. 4. Fatty liver. CT PELVIS: 3 mm axial cuts are obtained from the iliac crests through the symphysis pubis with 75 mL Isovue IV contrast. Dose reduction was employed with automated exposure control. The examination is compared to a previous study dated 05/30/2024. FINDINGS: There are nondistended loops of small bowel. Air and stool are identified within the colon to the level of the rectum. There is no evidence of obstruction. The distal ureters and bladder are normal. Trace free fluid is present in the dependent pelvis. IMPRESSION: 1. Mild inflammatory changes about the pancreas. 2. Trace free fluid along Gerota's fascia on the left and in the dependent pelvis. 3. No loculated collections to suggest an abscess or organized pseudocyst. 4. Fatty liver. 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 NOTE: This result is for medical treatment only. Analysis performed using non- forensic procedures. CBC WITH AUTO DIFFERENTIAL - Abnormal Auto WBC 8.9 RBC 4.63 Hemoglobin 14.1 Hematocrit 42.7 MCV 92.2 MCH 30.5 MCHC 33.0 RDW 14.4 Platelets 349 MPV 10.2 nRBC 0.0 Neutrophils Relative 67.6 Lymphocytes Relative 26.5 Monocytes Relative 4.4 (*) Eosinophils Relative 0.9 Basophils Relative 0.4 Immature Grans % 0.2 Neutrophils Absolute 6.0 Lymphocytes Absolute 2.4 Monocytes Absolute 0.4 Eosinophils Absolute 0.1 Basophils Absolute 0.0 Immature Grans Absolute 0.0 LIPASE - Normal LIPASE 48 MAGNESIUM - Normal MAGNESIUM 2.0 Narrative: Higher values can be expected in females during menses. All other labs were within normal range or not returned as of this dictation. EMERGENCY DEPARTMENT COURSE : Vitals: Vitals: 06/12/24205406/12/242335 BP: (!) 133/94 (!) 159/92 Pulse: (!) 112 97 Resp: 20 16 Temp: 37.8 C (100 F) TempSrc: Temporal SpO2: 98% 97% Weight: 99.8 kg (220 lb) Medications sucralfate (Carafate) tablet 1 g (1 g Oral Given 06/12/242240) famotidine (Pepcid) 20 mg in sodium chloride (PF) 0.9 % 10 mL injection (20 mg IntraVENous Given 06/12/242240) sodium chloride 0.9 % bolus 1,000 mL (0 mL IntraVENous Stopped 06/12/242340) LORazepam (Ativan) injection 1 mg (1 mg IntraVENous Given 06/12/242239) iopamidol (Isovue-370) 76 % injection 75 mL (75 mL IntraVENous Given 06/12/242349) PROCEDURES: Unless otherwise noted below, none Procedures CRITICAL CARE TIME FINAL IMPRESSION 1. Abdominal pain, unspecified abdominal location 2. Chronic pancreatitis, unspecified pancreatitis type (HCC) DISPOSITION Discharge 06/13/2024 12:28:49 AM PATIENT REFERRED TO: Tam Hughes DO [address] [facility] [id number] DISCHARGE MEDICATIONS: New Prescriptions SUCRALFATE (CARAFATE) 1 G TABLET Take 1 tablet (1 g) by mouth 4 times daily (before meals and nightly) for 5 days. (Comment: Please note this report has been produced using speech recognition software and may contain errors related to that system including errors in grammar, punctuation, and spelling, as well as words and phrases that may be inappropriate. If there are any questions or concerns please feel freeto contact the dictating provider for clarification.) Donald Hill DO (electronically signed) Emergency Medicine Provider Donald Hill Jr., DO 06/13/24 0031 documented in this [facility]05-04-2025 Physician Emergency department Note* Donald Hill Jr., - 06/12/2024 8:39 PM EDT EMERGENCY DEPARTMENT ENCOUNTER Pt Name: Roro Valdivia Birthdate 1985 Date of evaluation: 06/12/2024 ED Provider: Donald Hill DO CHIEF COMPLAINT Chief Complaint Patient presents with Abdominal Pain States that he has been battling pancreatitis for 1 month. Has MRI scheduled for 06/20 but the pain brought him in tonight. +nausea. +vomiting HISTORY OF PRESENT ILLNESS (Location/Symptom, Timing/Onset, Context/Setting, Quality, Duration, Modifying Factors, Severity) Note limiting factors. I wore appropriate PPE for the entirety of this encounter. HPI Roro Valdivia is a 38 y.o. who presents to the emergency department patient states he said chronic pancreatitis associated epigastric abdominal pain. Still having nausea and vomiting. Contact his GI doctor told to come to the emergency department. States taking Protonix daily significant relief. Did have episode of blood in emesis 2 days prior when he contacted his GI physician. Patient denies current CP, sob, fever, chills, dark tarry stool, bright red blood per rectum, headache, focal acuteweakness, loss/change of sensation or any other complaints at this time. PMH/PSHx/Meds/Allergies/SH/FH as per nursing documentation and reviewed. Nursing Notes were reviewed. History obtained from : patient Outside records reviewed: N/A History/Collateral information obtained from: N/A Patient's PDMP reviewed personally ED Course as of 06/13/24 0031 Sun June 12, 2024 2234 Hemoglobin stable no leukocytosis will continue to monitor and hydrate [SL] 2333 Discussed results with patient, patient stated he had not drank alcohol in some time but informed of his alcohol blood currently that will aggravate symptoms, patient admits slipped up, will repeat CT patient states lipase is sometimes normal when he does have pancreatitis [SL] Mon June 13, 2024 0028 Patient no vomiting in emergency department, discussed results will give additional medicationfor GI protection he will follow this GI doctor tomorrow [SL] 0029 No leukocytosis no elevation of lipase transaminases decreased from previous bilirubin normal limits [SL] ED Course User Index [SL] Donald Hill Jr., DO Diagnoses as of 06/13/24 0031 Abdominal pain, unspecified abdominal location Chronic pancreatitis, unspecified pancreatitis type ([facility]) Discussion/ MDM: Differential diagnosis includes but not limited to: Acute pancreatitis, chronic pancreatitis, gastritis, viral syndrome All results/imaging if obtained reviewed and interpreted, results trended/compared with previous levels if available symptomatically improved in emergency department Discussed all results obtained from imaging or labs with patient and those present with patient s permission, provided opportunity to ask any further questions, all questions answered to the best of my ability, feels comfortable with discharge and plan to follow up with PCP and GI specialist as outpatient. Will return at any time if symptoms worsen, new symptoms develop, or any new concerns arise. Chart created with voice recognition software, errors may be present due to software s interpretation REVIEW OF SYSTEMS Review of Systems Pertinent positives and negatives as per HPI PAST MEDICAL HISTORY Past Medical History: Diagnosis Date Addiction to drug ([facility]) (HCC) Alcohol abuse Alcohol withdrawal syndrome without complication ([facility]) 06/27/2022 Alcohol withdrawal with inpatient treatment, uncomplicated ([facility]) 03/15/2022 GERD (gastroesophageal reflux disease) History of pancreatitis 01/07/2023 Hypertension Pancreatitis Seizures ([facility]) SVT (supraventricular tachycardia) ([facility]) Tourette syndrome SURGICAL HISTORY Past Surgical History: Procedure Laterality Date APPENDECTOMY CURRENT MEDICATIONS Previous Medications CALCIUM CARBONATE (TUMS) 500 MG CHEWABLE TABLET Chew 1 tablet (500 mg) 3 times daily as needed for heartburn. CLONIDINE (CATAPRES) 0.1 MG TABLET Take 0.1 mg by mouth 2 times daily. DOXYLAMINE (UNISOM) 25 MG TABLET Take 1 tablet (25 mg) by mouth Nightly as needed for sleep. FOLIC ACID (FOLVITE) 1 MG TABLET Take 1 tablet (1 mg) by mouth daily. HYDROXYZINE HCL (ATARAX) 50 MG TABLET Take 1 tablet (50 mg) by mouth every 8 hours as needed for itching. METOPROLOL SUCCINATE XL (TOPROL-XL) 50 MG 24 HR TABLET Take 1 tablet (50 mg) by mouth daily. Do notcrush or chew. ONDANSETRON ODT (ZOFRAN-ODT) 4 MG DISINTEGRATING TABLET Take 1 tablet (4 mg) by mouth every 8 hoursas needed for nausea or vomiting. OXYCODONE (ROXICODONE) 5 MG IMMEDIATE RELEASE TABLET Take 1 tablet (5 mg) by mouth every 8 hours asneeded for severe pain (7-10). PANTOPRAZOLE (PROTONIX) 40 MG EC TABLET Take 1 tablet (40 mg) by mouth 2 times daily (before meals). Do not crush, chew, or split. PANTOPRAZOLE (PROTONIX) 40 MG EC TABLET Take 1 tablet (40 mg) by mouth every morning (before breakfast). Do not crush, chew, or split. RISPERIDONE (RISPERDAL) 1 MG TABLET Take 1 tablet (1 mg) by mouth 2 times daily. SENNA-DOCUSATE SODIUM (SENOKOT-S) 8.6-50 MG TABLET Take 2 tablets by mouth daily. THIAMINE (VITAMIN B1) 100 MG TABLET Take 1 tablet (100 mg) by mouth daily. VENLAFAXINE XR (EFFEXOR XR) 75 MG 24 HR CAPSULE Take 1 capsule (75 mg) by mouth daily (with breakfast). Do not crush or chew. ALLERGIES Patient has no known allergies. FAMILY HISTORY Family History Problem Relation Name Age of Onset No Known Problems Mother No Known Problems Father SOCIAL HISTORY Social History Socioeconomic History Marital status: Single Tobacco Use Smoking status: Every Day Current packs/day: 1.00 Types: Cigarettes Smokeless tobacco: Never Vaping Use Vaping status: Never Used Substance and Sexual Activity Alcohol use: Yes Comment: 2/5 vodka daily Drug use: Not Currently Types: Cocaine, Methamphetamines, Oxycodone, Fentanyl, Heroin, Benzodiazepines Sexual activity: Not Currently Social Drivers of Health Financial Resource Strain: Low Risk (02/05/2024) Overall Financial Resource Strain (CARDIA) Difficulty of Paying Living Expenses: Not hard at all Recent Concern: Financial Resource Strain - Medium Risk (12/14/2023) Overall Financial Resource Strain (CARDIA) Difficulty of Paying Living Expenses: Somewhat hard Food Insecurity: No Food Insecurity (04/20/2024) Hunger Vital Sign Worried About Running Out of Food in the Last Year: Never true Ran Out of Food in the Last Year: Never true Transportation Needs: No Transportation Needs (04/20/2024) PRAPARE - Transportation Lack of Transportation (Medical): No Lack of Transportation (Non-Medical): No Physical Activity: Inactive (02/05/2024) Exercise Vital Sign Days of Exercise per Week: 0 days Minutes of Exercise per Session: 0 min Stress: Stress Concern Present (02/05/2024) [employer] - Occupational Stress Questionnaire Feeling of Stress : To some extent Social Connections: Socially Isolated (02/05/2024) Social Connection and Isolation Panel [NHANES] Frequency of Communication with Friends and Family: More than three times a week Frequency of Social Gatherings with Friends and Family: More than three times a week Attends [employer] Services: Never Active Member of Clubs or Organizations: No Attends Club or Organization Meetings: Never Marital Status: Never Intimate Partner Violence: Not At Risk (04/20/2024) Humiliation, Afraid, Rape, and Kick questionnaire Fear of Current or Ex-Partner: No Emotionally Abused: No Physically Abused: No Sexually Abused: No Housing Stability: Low Risk (04/20/2024) Housing Stability Vital Sign Unable to Pay for Housing in the Last Year: No Number of Times Moved in the Last Year: 0 Homeless in the Last Year: No Recent Concern: Housing Stability - High Risk (02/05/2024) Housing Stability Vital Sign Unable to Pay for Housing in the Last Year: Patient unable to answer Number of Times Moved in the Last Year: 0 Homeless in the Last Year: Yes PHYSICAL EXAM ED Triage Vitals [06/12/242054] Temp Heart Rate Resp BP 37.8 C (100 F) (!) 112 20 (!) 133/94 SpO2 Temp Source Heart Rate Source Patient Position 98 % Temporal Monitor -- BP Location FiO2 (%) -- -- Physical Exam PHYSICIAL EXAM: Vitals reviewed GENERAL: Awake and alert in room, nontoxic-appearing appears nourished and normally developed. Vital signs as documented. EYES: Head exam is unremarkable. No scleral icterus HEENT: Mucous membranes moist. Nares patent without copious rhinorrhea. LUNGS: Lungs are clear to auscultation, -r/r/w without any respiratory distress.maintaining adequate SpO2 on room air no conversational dyspnea CARDIAC: Rhythm is regular. No dysrhythmias or murmurs. ABDOMEN: + mild tenderness palpation epigastric area, otherwise Soft, non- tender, non-distended, norebound/guarding, with no obvious masses EXTREMITIES: No peripheral edema, with no obvious deformities. No asymmetric swelling of distal lower extremities, no calf pain to palpation, no exam findings concerning for deep venous thrombosis, well-perfused SKIN: Good color, with no significant rashes. No pallor. NEURO: No obvious neurological deficits, normal sensation and strength bilaterally. Patient able toambulate. PSYCH: Mood and affect normal. Appropriate for age. DIAGNOSTIC RESULTS RADIOLOGY (Per Emergency Physician): Interpretation per the Radiologist below, if available at the time of this note: CT abdomen pelvis w contrast Final Result 1. Mild inflammatory changes about the pancreas. 2. Trace free fluid along Gerota's fascia on the left. 3. No loculated collections to suggest an abscess or organized pseudocyst. 4. Fatty liver. CT PELVIS: 3 mm axial cuts are obtained from the iliac crests through the symphysis pubis with 75 mL Isovue IV contrast. Dose reduction was employed with automated exposure control. The examination is compared to a previous study dated 05/30/2024. FINDINGS: There are nondistended loops of small bowel. Air and stool are identified within the colon to the level of the rectum. There is no evidence of obstruction. The distal ureters and bladder are normal. Trace free fluid is present in the dependent pelvis. IMPRESSION: 1. Mild inflammatory changes about the pancreas. 2. Trace free fluid along Gerota's fascia on the left and in the dependent pelvis. 3. No loculated collections to suggest an abscess or organized pseudocyst. 4. Fatty liver. 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 NOTE: This result is for medical treatment only. Analysis performed using non- forensic procedures. CBC WITH AUTO DIFFERENTIAL - Abnormal Auto WBC 8.9 RBC 4.63 Hemoglobin 14.1 Hematocrit 42.7 MCV 92.2 MCH 30.5 MCHC 33.0 RDW 14.4 Platelets 349 MPV 10.2 nRBC 0.0 Neutrophils Relative 67.6 Lymphocytes Relative 26.5 Monocytes Relative 4.4 (*) Eosinophils Relative 0.9 Basophils Relative 0.4 Immature Grans % 0.2 Neutrophils Absolute 6.0 Lymphocytes Absolute 2.4 Monocytes Absolute 0.4 Eosinophils Absolute 0.1 Basophils Absolute 0.0 Immature Grans Absolute 0.0 LIPASE - Normal LIPASE 48 MAGNESIUM - Normal MAGNESIUM 2.0 Narrative: Higher values can be expected in females during menses. All other labs were within normal range or not returned as of this dictation. EMERGENCY DEPARTMENT COURSE : Vitals: Vitals: 06/12/24205406/12/242335 BP: (!) 133/94 (!) 159/92 Pulse: (!) 112 97 Resp: 20 16 Temp: 37.8 C (100 F) TempSrc: Temporal SpO2: 98% 97% Weight: 99.8 kg (220 lb) Medications sucralfate (Carafate) tablet 1 g (1 g Oral Given 06/12/242240) famotidine (Pepcid) 20 mg in sodium chloride (PF) 0.9 % 10 mL injection (20 mg IntraVENous Given 06/12/242240) sodium chloride 0.9 % bolus 1,000 mL (0 mL IntraVENous Stopped 06/12/242340) LORazepam (Ativan) injection 1 mg (1 mg IntraVENous Given 06/12/242239) iopamidol (Isovue-370) 76 % injection 75 mL (75 mL IntraVENous Given 06/12/242349) PROCEDURES: Unless otherwise noted below, none Procedures CRITICAL CARE TIME FINAL IMPRESSION 1. Abdominal pain, unspecified abdominal location 2. Chronic pancreatitis, unspecified pancreatitis type (HCC) DISPOSITION Discharge 06/13/2024 12:28:49 AM PATIENT REFERRED TO: Tam Hughes DO [address] [facility] [id number] DISCHARGE MEDICATIONS: New Prescriptions SUCRALFATE (CARAFATE) 1 G TABLET Take 1 tablet (1 g) by mouth 4 times daily (before meals and nightly) for 5 days. (Comment: Please note this report has been produced using speech recognition software and may contain errors related to that system including errors in grammar, punctuation, and spelling, as well as words and phrases that may be inappropriate. If there are any questions or concerns please feel freeto contact the dictating provider for clarification.) Donald Hill DO (electronically signed) Emergency Medicine Provider Donald Hill Jr., 06/13/24 0031 [id number] Emergency department Note* Josseline Weber MD - 06/04/2024 3:35 PM EDT EMERGENCY DEPARTMENT ENCOUNTER Pt Name: Roro Valdivia Birthdate 1985 Date of evaluation: 06/04/2024 ED Provider: Josseline Weber MD CHIEF COMPLAINT Chief Complaint Patient presents with Abdominal Pain Vomiting Nausea HISTORY OF PRESENT ILLNESS (Location/Symptom, Timing/Onset, Context/Setting, Quality, Duration, Modifying Factors, Severity) Note limiting factors. I wore appropriate PPE for the entirety of this encounter. HPI Roro Valdivia is a 38 y.o. male who presents to the emergency department with chief complaint of upper abdominal pain. Patient states he is dealing with chronic pancreatitis. States he stopped drinking alcohol a month ago. States he has had worsening upper abdominal pain in the last several days associated with nausea and vomiting. No diarrhea. No fevers Nursing Notes were reviewed. Limitations to history: None Outside historians: None REVIEW OF SYSTEMS Review of Systems: Pertinent positives as above per history of present illness. Other systems reviewed and found to be negative to a total of 10 systems reviewed. PAST MEDICAL HISTORY Past Medical History: Diagnosis Date Addiction to drug ([facility]) ([facility]) Alcohol abuse Alcohol withdrawal syndrome without complication ([facility]) 06/27/2022 Alcohol withdrawal with inpatient treatment, uncomplicated ([facility]) 03/15/2022 GERD (gastroesophageal reflux disease) History of pancreatitis 01/07/2023 Hypertension Pancreatitis Seizures ([facility]) SVT (supraventricular tachycardia) ([facility]) Tourette syndrome SURGICAL HISTORY Past Surgical History: Procedure Laterality Date APPENDECTOMY CURRENT MEDICATIONS Current Discharge Medication List CONTINUE these medications which have NOT CHANGED Details calcium carbonate (Tums) 500 MG chewable tablet Chew 1 tablet (500 mg) 3 times daily as needed for heartburn. Qty: 30 tablet, Refills: 0 cloNIDine (Catapres) 0.1 MG tablet Take 0.1 mg by mouth 2 times daily. doxylamine (Unisom) 25 MG tablet Take 1 tablet (25 mg) by mouth Nightly as needed for sleep. Qty: 30 tablet, Refills: 0 folic acid (Folvite) 1 MG tablet Take 1 tablet (1 mg) by mouth daily. Qty: 30 tablet, Refills: 1 hydrOXYzine HCl (Atarax) 50 MG tablet Take 1 tablet (50 mg) by mouth every 8 hours as needed for itching. Qty: 90 tablet, Refills: 0 metoprolol succinate XL (Toprol-XL) 50 MG 24 hr tablet Take 1 tablet (50 mg) by mouth daily. Do notcrush or chew. Qty: 30 tablet, Refills: 1 !! pantoprazole (ProtoNix) 40 MG EC tablet Take 1 tablet (40 mg) by mouth 2 times daily (before meals). Do not crush, chew, or split. Qty: 60 tablet, Refills: 0 !! pantoprazole (ProtoNix) 40 MG EC tablet Take 1 tablet (40 mg) by mouth every morning (before breakfast). Do not crush, chew, or split. Qty: 30 tablet, Refills: 0 risperiDONE (RisperDAL) 1 MG tablet Take 1 tablet (1 mg) by mouth 2 times daily. Qty: 60 tablet, Refills: 3 senna-docusate sodium (Senokot-S) 8.6-50 MG tablet Take 2 tablets by mouth daily. Qty: 60 tablet, Refills: 11 thiamine (Vitamin B1) 100 MG tablet Take 1 tablet (100 mg) by mouth daily. Qty: 30 tablet, Refills: 1 venlafaxine XR (Effexor XR) 75 MG 24 hr capsule Take 1 capsule (75 mg) by mouth daily (with breakfast). Do not crush or chew. Qty: 30 capsule, Refills: 1 !! - Potential duplicate medications found. Please discuss with provider. ALLERGIES Patient has no known allergies. FAMILY HISTORY Family History Problem Relation Name Age of Onset No Known Problems Mother No Known Problems Father SOCIAL HISTORY Social History Socioeconomic History Marital status: Single Tobacco Use Smoking status: Every Day Current packs/day: 1.00 Types: Cigarettes Smokeless tobacco: Never Vaping Use Vaping status: Never Used Substance and Sexual Activity Alcohol use: Yes Comment: 03/16 madelin daily Drug use: Not Currently Types: Cocaine, Methamphetamines, Oxycodone, Fentanyl, Heroin, Benzodiazepines Sexual activity: Not Currently Social Drivers of Health Financial Resource Strain: Low Risk (02/05/2024) Overall Financial Resource Strain (CARDIA) Difficulty of Paying Living Expenses: Not hard at all Recent Concern: Financial Resource Strain - Medium Risk (12/14/2023) Overall Financial Resource Strain (CARDIA) Difficulty of Paying Living Expenses: Somewhat hard Food Insecurity: No Food Insecurity (04/20/2024) Hunger Vital Sign Worried About Running Out of Food in the Last Year: Never true Ran Out of Food in the Last Year: Never true Transportation Needs: No Transportation Needs (04/20/2024) PRAPARE - Transportation Lack of Transportation (Medical): No Lack of Transportation (Non-Medical): No Physical Activity: Inactive (02/05/2024) Exercise Vital Sign Days of Exercise per Week: 0 days Minutes of Exercise per Session: 0 min Stress: Stress Concern Present (02/05/2024) [employer] - Occupational Stress Questionnaire Feeling of Stress : To some extent Social Connections: Socially Isolated (02/05/2024) Social Connection and Isolation Panel [NHANES] Frequency of Communication with Friends and Family: More than three times a week Frequency of Social Gatherings with Friends and Family: More than three times a week Attends [employer] Services: Never Active Member of Clubs or Organizations: No Attends Club or Organization Meetings: Never Marital Status: Never Intimate Partner Violence: Not At Risk (04/20/2024) Humiliation, Afraid, Rape, and Kick questionnaire Fear of Current or Ex-Partner: No Emotionally Abused: No Physically Abused: No Sexually Abused: No Housing Stability: Low Risk (04/20/2024) Housing Stability Vital Sign Unable to Pay for Housing in the Last Year: No Number of Times Moved in the Last Year: 0 Homeless in the Last Year: No Recent Concern: Housing Stability - High Risk (02/05/2024) Housing Stability Vital Sign Unable to Pay for Housing in the Last Year: Patient unable to answer Number of Times Moved in the Last Year: 0 Homeless in the Last Year: Yes SCREENINGS PHYSICAL EXAM ED Triage Vitals [06/04/24 1537] Temp Heart Rate Resp BP 36.3 C (97.3 F) 103 18 (!) 157/109 SpO2 Temp Source Heart Rate Source Patient Position 99 % Temporal Monitor -- BP Location FiO2 (%) -- -- Physical Exam: Vital signs reviewed in nurse's notes. Patient is nontoxic in appearance. No respiratory distress. Head: Normocephalic, atraumatic Eyes: Pupils are equal, round and reactive to light. EOMI. Conjunctiva clear. Sclera anicteric ENT: Mucous membranes moist. Throat shows no erythema exudates or edema. Neck: No anterior adenopathy. No tenderness or stiffness. Lungs: Clear to auscultation bilaterally. No wheezing rales or rhonchi. Heart: Regular rate and rhythm. No audible murmur or gallop. Abdomen: Soft, nondistended, with epigastric area tenderness, no lower abdominal tenderness. No rebound or guarding. No signs of peritonitis. Back: No midline tenderness. No flank area tenderness. Extremities: No gross deformity. No obvious tenderness. No obvious joint swelling. No calf tenderness. Negative Homans sign. Good distal pulses in all 4 extremities. Neurologic: Alert and fully oriented. No focal motor, sensory deficits in all 4 extremities. DIAGNOSTIC RESULTS LABS: Labs Reviewed LIPASE - Abnormal Result Value LIPASE 117 (*) BASIC METABOLIC PANEL - Abnormal SODIUM 140 POTASSIUM 3.4 (*) CHLORIDE 101 CARBON DIOXIDE 22 UREA NITROGEN 7 (*) CREATININE 0.66 (*) GLUCOSE 127 (*) CALCIUM 9.7 ANION GAP 17 (*) eGFR >90.0 HEPATIC FUNCTION PANEL - Abnormal BILIRUBIN, TOTAL 1.4 (*) BILIRUBIN, DIRECT 0.9 (*) ALKALINE PHOSPHATASE 226 (*) AST (SGOT) 104 (*) ALT 73 (*) ALBUMIN 3.9 TOTAL PROTEIN 8.3 CBC WITH AUTO DIFFERENTIAL - Normal Auto WBC 7.3 RBC 4.64 Hemoglobin 14.2 Hematocrit 43.2 MCV 93.1 MCH 30.6 MCHC 32.9 RDW 14.6 Platelets 281 MPV 10.1 nRBC 0.0 Neutrophils Relative 64.1 Lymphocytes Relative 26.3 Monocytes Relative 7.1 Eosinophils Relative 1.5 Basophils Relative 0.7 Immature Grans % 0.3 Neutrophils Absolute 4.7 Lymphocytes Absolute 1.9 Monocytes Absolute 0.5 Eosinophils Absolute 0.1 Basophils Absolute 0.1 Immature Grans Absolute 0.0 Lab studies obtained. Normal kidney function. White count normal. No anemia. Lipase is 117, slightly higher than patient's recent laboratory studies. Liver enzymes are elevated, consistent with previous laboratory studies. Today's laboratory studies reviewed by this examiner EMERGENCY DEPARTMENT COURSE and DIFFERENTIAL DIAGNOSIS/MDM: Vitals: Vitals: 06/04/24 1537 BP: (!) 157/109 Pulse: 103 Resp: 18 Temp: 36.3 C (97.3 F) TempSrc: Temporal SpO2: 99% Weight: 102 kg (225 lb) Patient is given IV fluids, pain medicines. He feels some improvement. I discussed with patient that he has recurrent and chronic pancreatitis. I recommended patient admission for pain control and IVfluids, n.p.o. and GI rest. He would like to continue treatment as an outpatient with pain and nausea medications and follow-up with his doctor. He understands to return if worse or new symptoms or problems. He does not exhibit signs of peritonitis at this time The patient presented with chief complaint of abdominal pain. The differential diagnosis associated with this patient's presentation includes dehydration, chronic pancreatitis, acute pancreatitis, cholecystitis, colitis, diverticulitis, bowel obstruction. Our workup consisted of ordering/reviewing: Laboratory studies laboratory studies. Consideration for escalation of care with: Admission/observation for IV fluids and pain control. The patient will be Discharged. Patient is in agreement with this plan. Patient's care was significantly impacted by social determinants of health including Alcoholism. Medications morphine injection 4 mg (4 mg IntraVENous Given 06/04/24 1602) ondansetron (Zofran) injection 4 mg (4 mg IntraVENous Given 06/04/24 1602) sodium chloride 0.9 % bolus 1,000 mL (1,000 mL IntraVENous New Bag 06/04/24 1601) REVAL: PROCEDURES: Unless otherwise noted below, none Procedures Patients symptoms are consistent with sepsis, severe sepsis, or septic shock (If yes use .sepsiscoremeasure): no FINAL IMPRESSION 1. Alcohol-induced chronic pancreatitis (CMS/HCC) (HCC) 2. Pain of upper abdomen 3. Acute on chronic pancreatitis (CMS/HCC) (HCC) DISPOSITION Discharge 06/04/2024 05:49:26 PM PATIENT REFERRED TO: Tam Hughes DO [address] [facility] [id number] Call in 3 days DISCHARGE MEDICATIONS: Current Discharge Medication List (Comment: Please note this report has been produced using speech recognition software and may contain errors related to that system including errors in grammar, punctuation, and spelling, as well as words and phrases that may be inappropriate. If there are any questions or concerns please feel freeto contact the dictating provider for clarification.) Josseline Weber MD (electronically signed) Emergency Medicine Provider Josseline Weber MD 06/04/24 1751 * Roro Macias RN - 06/04/2024 3:35 PM EDT Pt seen recently, dx pancreatitis, sts sx ongoing with abd pain that worsens with eating/drinking, N/V. Referred to ER by Negative resp distress, positive full sentences, negative diaphoresis, positive steady gait. Times are approximate. documented in this [facility]04-26-2025 Emergency department Triage note* Roro Macias RN - 06/04/2024 3:35 PM EDT Pt seen recently, dx pancreatitis, sts sx ongoing with abd pain that worsens with eating/drinking, N/V. Referred to ER by Negative resp distress, positive full sentences, negative diaphoresis, positive steady gait. Times are approximate. [id number] Emergency department Note* Josseline Weber MD - 06/04/2024 3:35 PM EDT EMERGENCY DEPARTMENT ENCOUNTER Pt Name: Roro Valdivia Birthdate 1985 Date of evaluation: 06/04/2024 ED Provider: Josseline Weber MD CHIEF COMPLAINT Chief Complaint Patient presents with Abdominal Pain Vomiting Nausea HISTORY OF PRESENT ILLNESS (Location/Symptom, Timing/Onset, Context/Setting, Quality, Duration, Modifying Factors, Severity) Note limiting factors. I wore appropriate PPE for the entirety of this encounter. HPI Roro Valdivia is a 38 y.o. male who presents to the emergency department with chief complaint of upper abdominal pain. Patient states he is dealing with chronic pancreatitis. States he stopped drinking alcohol a month ago. States he has had worsening upper abdominal pain in the last several days associated with nausea and vomiting. No diarrhea. No fevers Nursing Notes were reviewed. Limitations to history: None Outside historians: None REVIEW OF SYSTEMS Review of Systems: Pertinent positives as above per history of present illness. Other systems reviewed and found to be negative to a total of 10 systems reviewed. PAST MEDICAL HISTORY Past Medical History: Diagnosis Date Addiction to drug ([facility]) ([facility]) Alcohol abuse Alcohol withdrawal syndrome without complication ([facility]) 06/27/2022 Alcohol withdrawal with inpatient treatment, uncomplicated ([facility]) 03/15/2022 GERD (gastroesophageal reflux disease) History of pancreatitis 01/07/2023 Hypertension Pancreatitis Seizures ([facility]) SVT (supraventricular tachycardia) ([facility]) Tourette syndrome SURGICAL HISTORY Past Surgical History: Procedure Laterality Date APPENDECTOMY CURRENT MEDICATIONS Current Discharge Medication List CONTINUE these medications which have NOT CHANGED Details calcium carbonate (Tums) 500 MG chewable tablet Chew 1 tablet (500 mg) 3 times daily as needed for heartburn. Qty: 30 tablet, Refills: 0 cloNIDine (Catapres) 0.1 MG tablet Take 0.1 mg by mouth 2 times daily. doxylamine (Unisom) 25 MG tablet Take 1 tablet (25 mg) by mouth Nightly as needed for sleep. Qty: 30 tablet, Refills: 0 folic acid (Folvite) 1 MG tablet Take 1 tablet (1 mg) by mouth daily. Qty: 30 tablet, Refills: 1 hydrOXYzine HCl (Atarax) 50 MG tablet Take 1 tablet (50 mg) by mouth every 8 hours as needed for itching. Qty: 90 tablet, Refills: 0 metoprolol succinate XL (Toprol-XL) 50 MG 24 hr tablet Take 1 tablet (50 mg) by mouth daily. Do notcrush or chew. Qty: 30 tablet, Refills: 1 !! pantoprazole (ProtoNix) 40 MG EC tablet Take 1 tablet (40 mg) by mouth 2 times daily (before meals). Do not crush, chew, or split. Qty: 60 tablet, Refills: 0 !! pantoprazole (ProtoNix) 40 MG EC tablet Take 1 tablet (40 mg) by mouth every morning (before breakfast). Do not crush, chew, or split. Qty: 30 tablet, Refills: 0 risperiDONE (RisperDAL) 1 MG tablet Take 1 tablet (1 mg) by mouth 2 times daily. Qty: 60 tablet, Refills: 3 senna-docusate sodium (Senokot-S) 8.6-50 MG tablet Take 2 tablets by mouth daily. Qty: 60 tablet, Refills: 11 thiamine (Vitamin B1) 100 MG tablet Take 1 tablet (100 mg) by mouth daily. Qty: 30 tablet, Refills: 1 venlafaxine XR (Effexor XR) 75 MG 24 hr capsule Take 1 capsule (75 mg) by mouth daily (with breakfast). Do not crush or chew. Qty: 30 capsule, Refills: 1 !! - Potential duplicate medications found. Please discuss with provider. ALLERGIES Patient has no known allergies. FAMILY HISTORY Family History Problem Relation Name Age of Onset No Known Problems Mother No Known Problems Father SOCIAL HISTORY Social History Socioeconomic History Marital status: Single Tobacco Use Smoking status: Every Day Current packs/day: 1.00 Types: Cigarettes Smokeless tobacco: Never Vaping Use Vaping status: Never Used Substance and Sexual Activity Alcohol use: Yes Comment: 2/5 vodka daily Drug use: Not Currently Types: Cocaine, Methamphetamines, Oxycodone, Fentanyl, Heroin, Benzodiazepines Sexual activity: Not Currently Social Drivers of Health Financial Resource Strain: Low Risk (02/05/2024) Overall Financial Resource Strain (CARDIA) Difficulty of Paying Living Expenses: Not hard at all Recent Concern: Financial Resource Strain - Medium Risk (12/14/2023) Overall Financial Resource Strain (CARDIA) Difficulty of Paying Living Expenses: Somewhat hard Food Insecurity: No Food Insecurity (04/20/2024) Hunger Vital Sign Worried About Running Out of Food in the Last Year: Never true Ran Out of Food in the Last Year: Never true Transportation Needs: No Transportation Needs (04/20/2024) PRAPARE - Transportation Lack of Transportation (Medical): No Lack of Transportation (Non-Medical): No Physical Activity: Inactive (02/05/2024) Exercise Vital Sign Days of Exercise per Week: 0 days Minutes of Exercise per Session: 0 min Stress: Stress Concern Present (02/05/2024) [employer] - Occupational Stress Questionnaire Feeling of Stress : To some extent Social Connections: Socially Isolated (02/05/2024) Social Connection and Isolation Panel [NHANES] Frequency of Communication with Friends and Family: More than three times a week Frequency of Social Gatherings with Friends and Family: More than three times a week Attends [employer] Services: Never Active Member of Clubs or Organizations: No Attends Club or Organization Meetings: Never Marital Status: Never Intimate Partner Violence: Not At Risk (04/20/2024) Humiliation, Afraid, Rape, and Kick questionnaire Fear of Current or Ex-Partner: No Emotionally Abused: No Physically Abused: No Sexually Abused: No Housing Stability: Low Risk (04/20/2024) Housing Stability Vital Sign Unable to Pay for Housing in the Last Year: No Number of Times Moved in the Last Year: 0 Homeless in the Last Year: No Recent Concern: Housing Stability - High Risk (02/05/2024) Housing Stability Vital Sign Unable to Pay for Housing in the Last Year: Patient unable to answer Number of Times Moved in the Last Year: 0 Homeless in the Last Year: Yes SCREENINGS PHYSICAL EXAM ED Triage Vitals [06/04/24 1537] Temp Heart Rate Resp BP 36.3 C (97.3 F) 103 18 (!) 157/109 SpO2 Temp Source Heart Rate Source Patient Position 99 % Temporal Monitor -- BP Location FiO2 (%) -- -- Physical Exam: Vital signs reviewed in nurse's notes. Patient is nontoxic in appearance. No respiratory distress. Head: Normocephalic, atraumatic Eyes: Pupils are equal, round and reactive to light. EOMI. Conjunctiva clear. Sclera anicteric ENT: Mucous membranes moist. Throat shows no erythema exudates or edema. Neck: No anterior adenopathy. No tenderness or stiffness. Lungs: Clear to auscultation bilaterally. No wheezing rales or rhonchi. Heart: Regular rate and rhythm. No audible murmur or gallop. Abdomen: Soft, nondistended, with epigastric area tenderness, no lower abdominal tenderness. No rebound or guarding. No signs of peritonitis. Back: No midline tenderness. No flank area tenderness. Extremities: No gross deformity. No obvious tenderness. No obvious joint swelling. No calf tenderness. Negative Homans sign. Good distal pulses in all 4 extremities. Neurologic: Alert and fully oriented. No focal motor, sensory deficits in all 4 extremities. DIAGNOSTIC RESULTS LABS: Labs Reviewed LIPASE - Abnormal Result Value LIPASE 117 (*) BASIC METABOLIC PANEL - Abnormal SODIUM 140 POTASSIUM 3.4 (*) CHLORIDE 101 CARBON DIOXIDE 22 UREA NITROGEN 7 (*) CREATININE 0.66 (*) GLUCOSE 127 (*) CALCIUM 9.7 ANION GAP 17 (*) eGFR >90.0 HEPATIC FUNCTION PANEL - Abnormal BILIRUBIN, TOTAL 1.4 (*) BILIRUBIN, DIRECT 0.9 (*) ALKALINE PHOSPHATASE 226 (*) AST (SGOT) 104 (*) ALT 73 (*) ALBUMIN 3.9 TOTAL PROTEIN 8.3 CBC WITH AUTO DIFFERENTIAL - Normal Auto WBC 7.3 RBC 4.64 Hemoglobin 14.2 Hematocrit 43.2 MCV 93.1 MCH 30.6 MCHC 32.9 RDW 14.6 Platelets 281 MPV 10.1 nRBC 0.0 Neutrophils Relative 64.1 Lymphocytes Relative 26.3 Monocytes Relative 7.1 Eosinophils Relative 1.5 Basophils Relative 0.7 Immature Grans % 0.3 Neutrophils Absolute 4.7 Lymphocytes Absolute 1.9 Monocytes Absolute 0.5 Eosinophils Absolute 0.1 Basophils Absolute 0.1 Immature Grans Absolute 0.0 Lab studies obtained. Normal kidney function. White count normal. No anemia. Lipase is 117, slightly higher than patient's recent laboratory studies. Liver enzymes are elevated, consistent with previous laboratory studies. Today's laboratory studies reviewed by this examiner EMERGENCY DEPARTMENT COURSE and DIFFERENTIAL DIAGNOSIS/MDM: Vitals: Vitals: 06/04/24 1537 BP: (!) 157/109 Pulse: 103 Resp: 18 Temp: 36.3 C (97.3 F) TempSrc: Temporal SpO2: 99% Weight: 102 kg (225 lb) Patient is given IV fluids, pain medicines. He feels some improvement. I discussed with patient that he has recurrent and chronic pancreatitis. I recommended patient admission for pain control and IVfluids, n.p.o. and GI rest. He would like to continue treatment as an outpatient with pain and nausea medications and follow-up with his doctor. He understands to return if worse or new symptoms or problems. He does not exhibit signs of peritonitis at this time The patient presented with chief complaint of abdominal pain. The differential diagnosis associated with this patient's presentation includes dehydration, chronic pancreatitis, acute pancreatitis, cholecystitis, colitis, diverticulitis, bowel obstruction. Our workup consisted of ordering/reviewing: Laboratory studies laboratory studies. Consideration for escalation of care with: Admission/observation for IV fluids and pain control. The patient will be Discharged. Patient is in agreement with this plan. Patient's care was significantly impacted by social determinants of health including Alcoholism. Medications morphine injection 4 mg (4 mg IntraVENous Given 06/04/24 1602) ondansetron (Zofran) injection 4 mg (4 mg IntraVENous Given 06/04/24 1602) sodium chloride 0.9 % bolus 1,000 mL (1,000 mL IntraVENous New Bag 06/04/24 1601) REVAL: PROCEDURES: Unless otherwise noted below, none Procedures Patients symptoms are consistent with sepsis, severe sepsis, or septic shock (If yes use .sepsiscoremeasure): no FINAL IMPRESSION 1. Alcohol-induced chronic pancreatitis (CMS/HCC) ([facility]) 2. Pain of upper abdomen 3. Acute on chronic pancreatitis (CMS/HCC) ([facility]) DISPOSITION Discharge 06/04/2024 05:49:26 PM PATIENT REFERRED TO: Tam Hughes DO [address] [facility] [phone] Call in 3 days DISCHARGE MEDICATIONS: Current Discharge Medication List (Comment: Please note this report has been produced using speech recognition software and may contain errors related to that system including errors in grammar, punctuation, and spelling, as well as words and phrases that may be inappropriate. If there are any questions or concerns please feel freeto contact the dictating provider for clarification.) Josseline Weber MD (electronically signed) Emergency Medicine Provider Josseline Weber MD 06/04/241750 [id number] Telephone encounter Note* Telephone Encounter - Erin Barbour RN - 06/03/2024 1:07 PM EDT Spoke with patient, states he's not sure if he is going to ED. Abd pain due to pancreatitis, throbbing, constant like someone punched him. Unable to eat for weeks-drinking water and ensure. Explainedthat office does not prescribe pain medication. Taking Phenergan, vomiting has stopped. No diarrheaor jaundice. Instructed to go to ED if symptoms worsen, verbalized understanding. Seema notified. [facility] [id number] Miscellaneous Notes* Telephone Encounter - Erin Barbour RN - 06/03/2024 1:07 PM EDT Spoke with patient, states he's not sure if he is going to ED. Abd pain due to pancreatitis, throbbing, constant like someone punched him. Unable to eat for weeks-drinking water and ensure. Explainedthat office does not prescribe pain medication. Taking Phenergan, vomiting has stopped. No diarrheaor jaundice. Instructed to go to ED if symptoms worsen, verbalized understanding. Seema notified. * Telephone Encounter - Mariely Cordon RN - 06/03/2024 12:39 PM EDT S Patient calling with ongoing pancreatitis B ongoing A patient calling with ongoing pancreatitis. States he has had multiple ED visits recently. Followed up with Dr Hartley 06/01 for same. Was feeling a bit better at that time so did not request additional pain meds. He is now out. Pain is 8/10 same area and worse then previous. Vomiting 5 occurrences in the last 24 hrs and does have some blood in it but admits to taking ibuprofen. R Nothing in office today. Advised due to severity to symptoms he go to ED today. [facility]. Please review and follow up with patient. Thank you. Reason for Disposition [1] Vomiting AND [2] contains red blood or black (coffee ground) material (Exception: Few red streaks in vomit that only happened once.) Protocols used: Abdominal Pain -ADULT-AH documented in this encounterSDayton Children's [id number] Telephone encounter Note* Telephone Encounter - Mariely Cordon RN - 06/03/2024 12:39 PM EDT S Patient calling with ongoing pancreatitis B ongoing A patient calling with ongoing pancreatitis. States he has had multiple ED visits recently. Followed up with Dr Hartley 06/01 for same. Was feeling a bit better at that time so did not request additional pain meds. He is now out. Pain is 8/10 same area and worse then previous. Vomiting 5 occurrences in the last 24 hrs and does have some blood in it but admits to taking ibuprofen. R Nothing in office today. Advised due to severity to symptoms he go to ED today. [facility] Will need [facility] up care. Please review and follow up with patient. Thank you. Reason for Disposition [1] Vomiting AND [2] contains red blood or black (coffee ground) material (Exception: Few red streaks in vomit that only happened once.) Protocols used: Abdominal Pain -ADULT-AH [facility] [id number] History of Present illness Narrative* Seema Hartley APRN - [employer] - 06/01/2024 1:00 PM EDT Images from the original note were not included. [facility] - [address] [facility] [address] Dept: [phone] Dept Loc: [phone] Visit type: New Reason for Visit: New Patient (Acute on chronic pancreatitis (CMS/HCC) (HCC)) PCP: Tam Hughes, DO Assessment and Plan Diagnosis Plan 1. Acute on chronic pancreatitis (CMS/HCC) (HCC) [facility] [place] [facility] --This patient is referred by Mattie Durbin for Acute on chronic pancreatitis. Multiple hospital admissions and ED visits --for same. Last hospitalization 04/16/2024; last ED visit 05/30/2024. --Patient presents with polysubstance abuse including (previous vodka, cocaine, meth, oxycodon, fentanyl, heroin, benzodiazapine) IVDU, EtOH abuse, recurrent pancreatitis, HTN, GERD, EtOH withdrawal related seizures. Last alcohol 4 weeks ago; current daily cigarettes --Struggles to remain alcohol free due to severe panic attacks. Following with psychiatry. --complete alcohol cessation --tobacco cessation --MRI abdomen --chronic pancreatitis serology work up --follow up after above is completed No follow-ups on file. Advised patient to call office with new or worsening symptoms, questions, or concerns. Patient verbalized understanding and agreement of plan. Subjective HPI This patient is referred by Mattie Durbin for Acute on chronic pancreatitis. Multiple hospital admissions and ED visits for same. Last hospitalization 04/16/2024; last ED visit 05/30/2024. Patient presents with polysubstance abuse including (previous vodka, cocaine, meth, oxycodon, fentanyl, heroin, benzodiazapine) IVDU, EtOH abuse, recurrent pancreatitis, HTN, GERD, EtOH withdrawal related seizures. Last alcohol 4 weeks ago; current daily cigarettes Struggles to remain alcohol free due to severe panic attacks. Following with psychiatry. Current related work up: multiple Cts Current GI medications: pantoprazole, promethazine and senokot EGD no Colonoscopy no Antiplatelet no Anticoag no NSAIDS no Supplemental oxygen no CV/Pulm disease no Family history of colon cancer: unknown- mother adopted; unknown father? Personal history of colon polyps or colon cancer: no Pertinent Surgical history: appe Wt Readings from Last 10 Encounters: 06/01/24 225 lb 12.8 oz (102 kg) 05/30/24 250 lb (113 kg) 05/07/24 250 lb (113 kg) 04/16/24 245 lb (111 kg) 04/04/24 245 lb (111 kg) 02/04/24 235 lb (107 kg) 01/08/24 245 lb (111 kg) 12/14/23 251 lb 5.2 oz (114 kg) 11/21/23 252 lb (114 kg) 10/16/23 250 lb (113 kg) Review of Systems Constitutional: Negative for activity change, appetite change and unexpected weight change. HENT: Negative for trouble swallowing and voice change. Respiratory: Negative for cough and choking. Cardiovascular: Negative for chest pain. Gastrointestinal: Positive for abdominal pain. Negative for abdominal distention, anal bleeding, blood in stool, constipation, diarrhea, nausea, rectal pain and vomiting. Psychiatric/Behavioral: The patient is nervous/anxious. No Known Allergies Current Outpatient Medications: calcium carbonate (Tums) 500 MG chewable tablet, Chew 1 tablet (500 mg) 3 times daily as needed forheartburn., Disp: 30 tablet, Rfl: 0 cloNIDine (Catapres) 0.1 MG tablet, Take 0.1 mg by mouth 2 times daily., Disp: , Rfl: dicyclomine (Bentyl) 20 MG tablet, Take 1 tablet (20 mg) by mouth 2 times daily for 10 days., Disp:20 tablet, Rfl: 0 metoprolol succinate XL (Toprol-XL) 50 MG 24 hr tablet, Take 1 tablet (50 mg) by mouth daily. Do not crush or chew., Disp: 30 tablet, Rfl: 1 ondansetron ODT (Zofran-ODT) 4 MG disintegrating tablet, Take 1 tablet (4 mg) by mouth every 8 hours as needed for nausea or vomiting., Disp: 20 tablet, Rfl: 0 pantoprazole (ProtoNix) 40 MG EC tablet, Take 1 tablet (40 mg) by mouth 2 times daily (before meals). Do not crush, chew, or split., Disp: 60 tablet, Rfl: 0 pantoprazole (ProtoNix) 40 MG EC tablet, Take 1 tablet (40 mg) by mouth every morning (before breakfast). Do not crush, chew, or split., Disp: 30 tablet, Rfl: 0 risperiDONE (RisperDAL) 1 MG tablet, Take 1 tablet (1 mg) by mouth 2 times daily., Disp: 60 tablet,Rfl: 3 senna-docusate sodium (Senokot-S) 8.6-50 MG tablet, Take 2 tablets by mouth daily., Disp: 60 tablet, Rfl: 11 doxylamine (Unisom) 25 MG tablet, Take 1 tablet (25 mg) by mouth Nightly as needed for sleep., Disp: 30 tablet, Rfl: 0 folic acid (Folvite) 1 MG tablet, Take 1 tablet (1 mg) by mouth daily. (Patient not taking: Reported on 06/01/2024), Disp: 30 tablet, Rfl: 1 hydrOXYzine HCl (Atarax) 50 MG tablet, Take 1 tablet (50 mg) by mouth every 8 hours as needed for itching., Disp: 90 tablet, Rfl: 0 oxyCODONE (Roxicodone) 5 MG immediate release tablet, Take 1 tablet (5 mg) by mouth every 6 hours as needed for severe pain (7-10)., Disp: 12 tablet, Rfl: 0 thiamine (Vitamin B1) 100 MG tablet, Take 1 tablet (100 mg) by mouth daily. (Patient not taking: Reported on 06/01/2024), Disp: 30 tablet, Rfl: 1 venlafaxine XR (Effexor XR) 75 MG 24 hr capsule, Take 1 capsule (75 mg) by mouth daily (with breakfast). Do not crush or chew., Disp: 30 capsule, Rfl: 1 Patient Active Problem List Diagnosis Date Noted Date Diagnosed Pancreatitis, unspecified pancreatitis type 04/04/2024 Priority: Medium Severe malnutrition (CMS/HCC) (HCC) 02/06/2024 Priority: Medium Alcohol withdrawal syndrome without complication (HCC) 02/04/2024 Priority: Medium Alcohol-induced acute pancreatitis, unspecified complication status 01/20/2024 Priority: Medium Alcoholic intoxication without complication (CMS/HCC) (HCC) 12/13/2023 Priority: Medium Moderate malnutrition (CMS/HCC) (HCC) 11/20/2023 Priority: Medium Acute pancreatitis without infection or necrosis 11/18/2023 Priority: Medium Acute recurrent pancreatitis 10/16/2023 Priority: Medium Severe opioid use disorder on maintenance therapy (HCC) 08/11/2023 Priority: Medium Severe episode of recurrent major depressive disorder, without psychotic features ([facility]) 08/11/2023 Priority: Medium Severe alcohol use disorder (HCC) 06/24/2023 Priority: Medium Positive 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 01/07/2023 Priority: Medium History of pancreatitis 01/07/2023 Priority: Medium Benzodiazepine withdrawal with complication (HCC) 11/04/2022 Priority: Medium Opioid withdrawal (HCC) 11/04/2022 Priority: Medium Amphetamine withdrawal (HCC) 11/04/2022 Priority: Medium Pneumonia 11/04/2022 11/04/2022 Priority: Medium Palpitations 11/04/2022 11/04/2022 Priority: Medium Other specified abnormal findings of blood chemistry 11/04/2022 11/04/2022 Priority: Medium Dermatitis 11/04/2022 11/04/2022 Priority: Medium Depression 11/04/2022 11/04/2022 Priority: Medium Alcohol abuse 07/11/2022 Priority: Medium Polysubstance use disorder 03/16/2022 Priority: Medium Cocaine abuse (HCC) 03/16/2022 Priority: Medium Elevated liver enzymes 03/16/2022 Priority: Medium Panic disorder 03/16/2022 Priority: Medium Hematemesis of unknown etiology 12/13/2023 GERD (gastroesophageal reflux disease) 06/06/2018 Hypertension 06/06/2018 SVT (supraventricular tachycardia) ([facility]) 06/06/2018 Tourette syndrome 06/06/2018 Alcohol induced acute pancreatitis without necrosis or infection 03/29/2018 Past Medical History: Past Medical History: Diagnosis Date Addiction to drug ([facility]/HCC) (HCC) Alcohol abuse Alcohol withdrawal syndrome without complication ([facility]) 06/27/2022 Alcohol withdrawal with inpatient treatment, uncomplicated ([facility]) 03/15/2022 GERD (gastroesophageal reflux disease) History of pancreatitis 01/07/2023 Hypertension Pancreatitis Seizures ([facility]) SVT (supraventricular tachycardia) ([facility]) Tourette syndrome Past Surgical History: Past Surgical History: Procedure Laterality Date APPENDECTOMY Social History: Social History Tobacco Use Smoking status: Every Day Current packs/day: 1.00 Types: Cigarettes Smokeless tobacco: Never Substance Use Topics Alcohol use: Yes Comment: 2/5 vodka daily Family History: Family History Problem Relation Name Age of Onset No Known Problems Mother No Known Problems Father Objective BP 116/78 Pulse 80 Temp 36.1 C (97 F) Ht 6' 1 (1.854 m) Wt 225 lb 12.8 oz (102 kg) SpO2 98% BMI 29.79 kg/m Physical Exam Constitutional: General: He is not in acute distress. Appearance: Normal appearance. He is not ill-appearing. HENT: Head: Normocephalic and atraumatic. Eyes: General: No scleral icterus. Extraocular Movements: Extraocular movements intact. Conjunctiva/sclera: Conjunctivae normal. Pupils: Pupils are equal, round, and reactive to light. Cardiovascular: Rate and Rhythm: Normal rate and regular rhythm. Heart sounds: Normal heart sounds. No murmur heard. Pulmonary: Effort: Pulmonary effort is normal. No respiratory distress. Breath sounds: Normal breath sounds. Abdominal: General: Abdomen is flat. Bowel sounds are normal. There is no distension. Palpations: Abdomen is soft. There is no mass. Tenderness: There is no abdominal tenderness. There is no guarding or rebound. Hernia: No hernia is present. Musculoskeletal: Cervical back: Neck supple. Right lower leg: No edema. Left lower leg: No edema. Skin: General: Skin is warm and dry. Coloration: Skin is not jaundiced or pale. Neurological: General: No focal deficit present. Mental Status: He is alert. Psychiatric: Mood and Affect: Mood normal. Thought Content: Thought content normal. Data Reviewed and Summarized Labs: Lab Results Component Value Date WBC 7.5 05/30/2024 HGB 13.5 05/30/2024 HCT 40.4 05/30/2024 MCV 90.8 05/30/2024 PLT 234 05/30/2024 Lab Results Component Value Date LIPASE 37 05/30/2024 Lab Results Component Value Date ALT 89 (H) 05/30/2024 AST 132 (H) 05/30/2024 ALKPHOS 188 (H) 05/30/2024 BILITOT 1.3 (H) 05/30/2024 Lab Results Component Value Date INR 1.1 04/04/2024 INR 1.1 01/21/2024 INR 1.0 06/24/2023 PROTIME 12.8 (H) 04/04/2024 PROTIME 12.4 (H) 01/21/2024 PROTIME 11.2 06/24/2023 Lab Results Component Value Date TSH 1.316 10/22/2023 No results found for: IRON, TIBC, FERRITIN Lab Results Component Value Date HAV Negative 06/26/2022 HEPAIGM Not Detected 11/23/2023 HEPBIGM Not Detected 11/23/2023 HEPBCAB Negative 06/26/2022 HEPCAB Not Detected 11/23/2023 Imaging/Testing: [facility] 1985 [id number] Exam Date/Time: 05/30/2024 22:45 Procedure: CT ABDOMEN PELVIS WO IV CONTRAST Ordering Provider: DURBIN MEJGON Reason For Exam: left flank pain, concern for kidney stone EXAMINATION: CT of the abdomen and pelvis without contrast. EXAM DATE & TIME: 05/30/2024 10:45 PM EDT INDICATION: left flank pain, concern for kidney stone ADDITIONAL INFORMATION: 38-year-old male with left flank pain and concern for renal calculus presents for evaluation COMPARISON: CT abdomen pelvis dated 05/22/2024 LIMITATIONS: Evaluation of the vasculature as well as the solid and hollow viscera is limited due to the lack of intravenous and oral contrast. TECHNIQUE: Contiguous multiplanar 3 mm images were obtained from the levels of the lung bases through the pelvis without contrast. Images were reformatted in coronal and sagittal projections using the raw CT data and were interpreted in conjunction with the axial images to render the findings listed below. Dose reduction was employed with automated exposure control. FINDINGS: Included images of the lower thorax: No focal lung consolidation or pleural effusion. Hepatobiliary: The liver is enlarged and steatotic. No significant intrahepatic ductal dilatation. Gallbladder sludge is noted. Spleen: Unremarkable. Pancreas: Hazy infiltration surrounds the pancreas, similar compared to the prior study. Adrenal glands: Unremarkable. Kidneys, ureters and bladder: No hydronephrosis or nephrolithiasis. The urinary bladder is unremarkable in appearance. Abdominal and pelvic vasculature: Unremarkable. Gastrointestinal: A couple scattered colonic diverticula are seen without surrounding inflammatory change. There is no evidence of bowel obstruction. The appendix is surgically absent. Peritoneum, retroperitoneum and mesentery: Inflammatory changes surround the pancreas and left paracolic gutter. No free fluid or free air. Lymph nodes: No abdominal or pelvic lymphadenopathy is evident. Solid pelvic viscera: Unremarkable. Visualized musculoskeletal structures: No acute fracture or destructive osseous lesion is identified. IMPRESSION: 1. Peripancreatic haziness is redemonstrated, which can be seen in the setting of acute pancreatitis. Correlation with appropriate laboratory values is recommended. 2. Hepatomegaly and hepatic steatosis. Report Dictated on Electronically Signed By: Hitesh Nation MD Electronically Signed Date/Time: 05/30/2024 11:03 PM EDT Seema SALAS 1:07 PM 06/01/24 documented in this [facility]04-23-2025 Instructions* Patient Instructions* JOSÉ ANTONIO Harrison CNP - 06/01/2024 1:00 PM EDT --complete alcohol cessation --tobacco cessation --MRI abdomen --blood work to be completed --follow up after above is completed * Attachments The following attachments cannot be sent through Care Everywhere. * Chronic Pancreatitis ([place]) documented in this [facility]04-21-2025 Hospital Discharge instructions* Discharge Instructions* Mattie Durbin DO - 05/30/2024 11:58 PM EDT Take medications as prescribed for your chronic pancreatitis pain. Follow-up with GI for further management. Return to the ER for worsening symptoms or vomiting. * Attachments The following attachments cannot be sent through Care Everywhere. * Pancreatitis Discharge Instructions ([place]) documented in this [facility]04-21-2025 Emergency department Note* Mattie Durbin DO - 05/30/2024 9:42 PM EDT EMERGENCY DEPARTMENT ENCOUNTER Pt Name: Roro Valdivia Birthdate 1985 Date of evaluation: 05/30/2024 ED Provider: Mattie Durbin DO CHIEF COMPLAINT Chief Complaint Patient presents with Flank Pain Left x 5 days HISTORY OF PRESENT ILLNESS (Location/Symptom, Timing/Onset, Context/Setting, Quality, Duration, Modifying Factors, Severity) Note limiting factors. I wore appropriate PPE for the entirety of this encounter. HPI Roro Valdivia is a 38 y.o. who presents to the emergency department with chief complaint of left-sided flank pain. Patient states he has had symptoms for the past few days and they are not relenting. Has some generalized vague abdominal discomfort. States he has a history of chronic pancreatitis but his symptoms do not feel similar to his prior episodes of pancreatitis. Has had nausea without vomiting. Denies any recent alcohol. Nursing Notes were reviewed. Limitations to history: None Outside historians: None REVIEW OF SYSTEMS Review of Systems Pertinent positives and negatives as per HPI. PAST MEDICAL HISTORY Past Medical History: Diagnosis Date Addiction to drug ([facility]/HCC) (HCC) Alcohol abuse Alcohol withdrawal syndrome without complication ([facility]) 06/27/2022 Alcohol withdrawal with inpatient treatment, uncomplicated ([facility]) 03/15/2022 GERD (gastroesophageal reflux disease) History of pancreatitis 01/07/2023 Hypertension Pancreatitis Seizures ([facility]) SVT (supraventricular tachycardia) (HCC) Tourette syndrome SURGICAL HISTORY Past Surgical History: Procedure Laterality Date APPENDECTOMY CURRENT MEDICATIONS Discharge Medication List as of 05/30/2024 11:58 PM CONTINUE these medications which have NOT CHANGED Details calcium carbonate (Tums) 500 MG chewable tablet Chew 1 tablet (500 mg) 3 times daily as needed for heartburn., Starting Thu04/20/2024, Until Thu04/20/2025 at 2359, Normal cloNIDine (Catapres) 0.1 MG tablet Take 0.1 mg by mouth 2 times daily., Historical Med dicyclomine (Bentyl) 20 MG tablet Take 1 tablet (20 mg) by mouth 2 times daily for 10 days., Starting Thu05/22/2024, Until Thu06/01/2024, Normal doxylamine (Unisom) 25 MG tablet Take 1 tablet (25 mg) by mouth Nightly as needed for sleep., Starting Thu03/30/2024, Until Thu04/29/2024 at 2359, Normal folic acid (Folvite) 1 MG tablet Take 1 tablet (1 mg) by mouth daily., Starting Thu04/07/2024, Until Thu04/07/2025, Normal hydrOXYzine HCl (Atarax) 50 MG tablet Take 1 tablet (50 mg) by mouth every 8 hours as needed for itching., Starting Thu03/30/2024, Until Thu04/29/2024 at 2359, Normal metoprolol succinate XL (Toprol-XL) 50 MG 24 hr tablet Take 1 tablet (50 mg) by mouth daily. Do notcrush or chew., Starting Thu03/30/2024, Until Thu03/30/2025, Normal !! pantoprazole (ProtoNix) 40 MG EC tablet Take 1 tablet (40 mg) by mouth 2 times daily (before meals). Do not crush, chew, or split., Starting Thu12/17/2023, Until Thu12/16/2024, Normal !! pantoprazole (ProtoNix) 40 MG EC tablet Take 1 tablet (40 mg) by mouth every morning (before breakfast). Do not crush, chew, or split., Starting 05/07/2024, Until 06/06/2024, Normal risperiDONE (RisperDAL) 1 MG tablet Take 1 tablet (1 mg) by mouth 2 times daily., Starting Thu04/26/2024, Until Thu04/26/2025, Normal senna-docusate sodium (Senokot-S) 8.6-50 MG tablet Take 2 tablets by mouth daily., Starting Thu04/21/2024, Until Thu04/21/2025, Normal thiamine (Vitamin B1) 100 MG tablet Take 1 tablet (100 mg) by mouth daily., Starting Thu04/07/2024,Normal venlafaxine XR (Effexor XR) 75 MG 24 hr capsule Take 1 capsule (75 mg) by mouth daily (with breakfast). Do not crush or chew., Starting Thu02/17/2024, Until Thu04/17/2024, Normal !! - Potential duplicate medications found. Please discuss with provider. ALLERGIES Patient has no known allergies. FAMILY HISTORY Family History Problem Relation Name Age of Onset No Known Problems Mother No Known Problems Father SOCIAL HISTORY Social History Socioeconomic History Marital status: Single Tobacco Use Smoking status: Every Day Current packs/day: 1.00 Types: Cigarettes Smokeless tobacco: Never Vaping Use Vaping status: Never Used Substance and Sexual Activity Alcohol use: Yes Comment: 2/ vodka daily Drug use: Not Currently Types: Cocaine, Methamphetamines, Oxycodone, Fentanyl, Heroin, Benzodiazepines Sexual activity: Not Currently Social Drivers of Health Financial Resource Strain: Low Risk (02/05/2024) Overall Financial Resource Strain (CARDIA) Difficulty of Paying Living Expenses: Not hard at all Recent Concern: Financial Resource Strain - Medium Risk (12/14/2023) Overall Financial Resource Strain (CARDIA) Difficulty of Paying Living Expenses: Somewhat hard Food Insecurity: No Food Insecurity (04/20/2024) Hunger Vital Sign Worried About Running Out of Food in the Last Year: Never true Ran Out of Food in the Last Year: Never true Transportation Needs: No Transportation Needs (04/20/2024) PRAPARE - Transportation Lack of Transportation (Medical): No Lack of Transportation (Non-Medical): No Physical Activity: Inactive (02/05/2024) Exercise Vital Sign Days of Exercise per Week: 0 days Minutes of Exercise per Session: 0 min Stress: Stress Concern Present (02/05/2024) [employer] - Occupational Stress Questionnaire Feeling of Stress : To some extent Social Connections: Socially Isolated (02/05/2024) Social Connection and Isolation Panel [NHANES] Frequency of Communication with Friends and Family: More than three times a week Frequency of Social Gatherings with Friends and Family: More than three times a week Attends [employer] Services: Never Active Member of Clubs or Organizations: No Attends Club or Organization Meetings: Never Marital Status: Never Intimate Partner Violence: Not At Risk (04/20/2024) Humiliation, Afraid, Rape, and Kick questionnaire Fear of Current or Ex-Partner: No Emotionally Abused: No Physically Abused: No Sexually Abused: No Housing Stability: Low Risk (04/20/2024) Housing Stability Vital Sign Unable to Pay for Housing in the Last Year: No Number of Times Moved in the Last Year: 0 Homeless in the Last Year: No Recent Concern: Housing Stability - High Risk (02/05/2024) Housing Stability Vital Sign Unable to Pay for Housing in the Last Year: Patient unable to answer Number of Times Moved in the Last Year: 0 Homeless in the Last Year: Yes SCREENINGS PHYSICAL EXAM ED Triage Vitals [05/30/24 2207] Temp Heart Rate Resp BP 36.6 C (97.9 F) 88 18 (!) 149/96 SpO2 Temp Source Heart Rate Source Patient Position 97 % Oral -- -- BP Location FiO2 (%) -- -- Physical Exam Vitals and nursing note reviewed. Constitutional: General: He is not in acute distress. Appearance: He is well-developed. He is not ill-appearing or toxic-appearing. HENT: Head: Normocephalic and atraumatic. Nose: Nose normal. Cardiovascular: Rate and Rhythm: Normal rate and regular rhythm. Pulses: Normal pulses. Heart sounds: Normal heart sounds. No murmur heard. Pulmonary: Effort: Pulmonary effort is normal. No respiratory distress. Breath sounds: Normal breath sounds. Abdominal: General: There is no distension. Palpations: Abdomen is soft. Tenderness: There is no abdominal tenderness. There is left CVA tenderness. There is no right CVA tenderness. Musculoskeletal: General: No swelling. Normal range of motion. Cervical back: Normal range of motion and neck supple. Skin: General: Skin is warm and dry. Capillary Refill: Capillary refill takes less than 2 seconds. Neurological: General: No focal deficit present. Mental Status: He is alert. Mental status is at baseline. DIAGNOSTIC RESULTS RADIOLOGY (Per Emergency Physician): Interpretation per the Radiologist below, if available at the time of this note: CT abdomen pelvis wo IV contrast Final Result 1. Peripancreatic haziness is redemonstrated, which can be seen in the setting of acute pancreatitis. Correlation with appropriate laboratory values is recommended. 2. Hepatomegaly and hepatic steatosis. Report Dictated on Electronically Signed By: Hitesh Nation MD Electronically Signed Date/Time: 05/30/2024 11:03 PM EDT ED BEDSIDE ULTRASOUND: Performed by ED Physician - none LABS: Labs Reviewed COMPREHENSIVE METABOLIC PANEL - Abnormal Result Value SODIUM 137 POTASSIUM 3.3 (*) CHLORIDE 103 CARBON DIOXIDE 20 (*) ANION GAP 14 (*) UREA NITROGEN 4 (*) CREATININE 0.58 (*) GLUCOSE 100 CALCIUM 9.1 AST (SGOT) 132 (*) ALT 89 (*) ALKALINE PHOSPHATASE 188 (*) ALBUMIN 3.7 BILIRUBIN, TOTAL 1.3 (*) TOTAL PROTEIN 7.5 eGFR >90.0 COMPLETE URINALYSIS - Abnormal Color, Urine Yellow Clarity, Urine Clear pH, Urine 7.0 Leukocytes, Urine Negative Nitrite, Urine Negative Protein, Urine 10 (*) Glucose, Urine Normal Bilirubin, Urine Negative Ketones, Urine Trace (*) Urobilinogen, Urine 2 (*) Blood, Urine Negative Volume, Urine 12 mL RBC, Urine 0-2 WBC, Urine 0-2 Squamous Epithelial, Urine Negative Bacteria, Urine Negative Mucus, Urine Moderate (*) SPECIFIC GRAVITY OF URINE (NUMERIC) 1.013 CBC WITH AUTO DIFFERENTIAL - Normal Auto WBC 7.5 RBC 4.45 Hemoglobin 13.5 Hematocrit 40.4 MCV 90.8 MCH 30.3 MCHC 33.4 RDW 14.6 Platelets 234 MPV 10.2 nRBC 0.0 Neutrophils Relative 55.9 Lymphocytes Relative 33.0 Monocytes Relative 8.8 Eosinophils Relative 1.3 Basophils Relative 0.7 Immature Grans % 0.3 Neutrophils Absolute 4.2 Lymphocytes Absolute 2.5 Monocytes Absolute 0.7 Eosinophils Absolute 0.1 Basophils Absolute 0.1 Immature Grans Absolute 0.0 LIPASE - Normal LIPASE 37 COMPLETE URINALYSIS WITH REFLEX TO CULTURE Narrative: The following orders were created for panel order Urinalysis Complete with reflex to Culture. Procedure Abnormality Status --------- ------ Complete Urinalysis[[id number]] Abnormal Final result Please view results for these tests on the individual orders. All other labs were within normal range or not returned as of this dictation. EMERGENCY DEPARTMENT COURSE and DIFFERENTIAL DIAGNOSIS/MDM: Vitals: Vitals: 05/30/247 BP: (!) 149/96 Pulse: 88 Resp: 18 Temp: 36.6 C (97.9 F) TempSrc: Oral SpO2: 97% Weight: 113 kg (250 lb) Height: 1.854 m (6' 1) Diagnoses as of 05/31/24 0200 Acute on chronic pancreatitis (CMS/HCC) ([facility]) The patient presented with chief complaint of back pain. The differential diagnosis associated with this patient's presentation includes pancreatitis, pyelonephritis, kidney stone. Our workup consisted of ordering/reviewing: Labs and imaging. Patient is in agreement with this plan. Medications ketorolac (Toradol) injection 15 mg (15 mg IntraVENous Given 05/30/242220) morphine injection 4 mg (4 mg IntraVENous Given 05/30/242350) ondansetron (Zofran) injection 4 mg (4 mg IntraVENous Given 05/30/242350) REVAL: 38-year-old male with history of chronic pancreatitis presenting to the ED for left-sided back painprogressively worsening with a past few days. Vitals are stable. No focal abdominal tenderness on exam. CT shows concerns for acute on chronic pancreatitis. Labs show LFTs are elevated similar to priors. No leukocytosis. His lipase is normal however we discussed that with his chronic pancreatitis it is unlikely his lipase levels will be elevated in the setting of acute pancreatitis. We will treatwith a course of oxycodone and Zofran. He was given a referral for GI due to his recurrent episodes. He was given return precautions for worsening symptoms. Patient is comfortable to be discharged lindy e. CRITICAL CARE TIME CONSULTS: None PROCEDURES: Unless otherwise noted below, none Procedures Patients symptoms are consistent with sepsis, severe sepsis, or septic shock (If yes use .sepsiscoremeasure): FINAL IMPRESSION 1. Acute on chronic pancreatitis (CMS/HCC) ([facility]) DISPOSITION Discharge 05/30/2024 11:48:08 PM PATIENT REFERRED TO: [facility] - [address] [facility] [address] DISCHARGE MEDICATIONS: Discharge Medication List as of 05/30/2024 11:58 PM START taking these medications Details ondansetron ODT (Zofran-ODT) 4 MG disintegrating tablet Take 1 tablet (4 mg) by mouth every 8 hoursas needed for nausea or vomiting., Starting 05/30/2024, Normal oxyCODONE (Roxicodone) 5 MG immediate release tablet Take 1 tablet (5 mg) by mouth every 6 hours asneeded for severe pain (7-10)., Starting 05/30/2024, Normal (Comment: Please note this report has been produced using speech recognition software and may contain errors related to that system including errors in grammar, punctuation, and spelling, as well as words and phrases that may be inappropriate. If there are any questions or concerns please feel freeto contact the dictating provider for clarification.) Mattie Durbin DO (electronically signed) Emergency Medicine Provider Mattie Durbin DO 05/31/24 0203 * Sully Choi RN - 05/30/2024 9:42 PM EDT Resp even and unlabored. Able to speak in full sentences. Ambulates without difficulty. Pt c/o leftflank pain x 5days. Denies N/V/D, fevers, dysuria. documented in [facility] encounterSD[facility] [id number] Emergency department Triage note* Sully Choi RN - 05/30/2024 9:42 PM EDT Resp even and unlabored. Able to speak in full sentences. Ambulates without difficulty. Pt c/o leftflank pain x 5days. Denies N/V/D, fevers, dysuria. [id number] Emergency department Note* Mattie Durbin DO - 05/30/2024 9:42 PM EDT EMERGENCY DEPARTMENT ENCOUNTER Pt Name: Roro Valdivia Birthdate 1985 Date of evaluation: 05/30/2024 ED Provider: Mattie Durbin DO CHIEF COMPLAINT Chief Complaint Patient presents with Flank Pain Left x 5 days HISTORY OF PRESENT ILLNESS (Location/Symptom, Timing/Onset, Context/Setting, Quality, Duration, Modifying Factors, Severity) Note limiting factors. I wore appropriate PPE for the entirety of this encounter. HPI Roro Valdivia is a 38 y.o. who presents to the emergency department with chief complaint of left-sided flank pain. Patient states he has had symptoms for the past few days and they are not relenting. Has some generalized vague abdominal discomfort. States he has a history of chronic pancreatitis but his symptoms do not feel similar to his prior episodes of pancreatitis. Has had nausea without vomiting. Denies any recent alcohol. Nursing Notes were reviewed. Limitations to history: None Outside historians: None REVIEW OF SYSTEMS Review of Systems Pertinent positives and negatives as per HPI. PAST MEDICAL HISTORY Past Medical History: Diagnosis Date Addiction to drug ([facility]) ([facility]) Alcohol abuse Alcohol withdrawal syndrome without complication ([facility]) 06/27/2022 Alcohol withdrawal with inpatient treatment, uncomplicated ([facility]) 03/15/2022 GERD (gastroesophageal reflux disease) History of pancreatitis 01/07/2023 Hypertension Pancreatitis Seizures ([facility]) SVT (supraventricular tachycardia) ([facility]) Tourette syndrome SURGICAL HISTORY Past Surgical History: Procedure Laterality Date APPENDECTOMY CURRENT MEDICATIONS Discharge Medication List as of 05/30/2024 11:58 PM CONTINUE these medications which have NOT CHANGED Details calcium carbonate (Tums) 500 MG chewable tablet Chew 1 tablet (500 mg) 3 times daily as needed for heartburn., Starting 04/20/2024, Until Janay 04/20/2025 at 2359, Normal cloNIDine (Catapres) 0.1 MG tablet Take 0.1 mg by mouth 2 times daily., Historical Med dicyclomine (Bentyl) 20 MG tablet Take 1 tablet (20 mg) by mouth 2 times daily for 10 days., Starting 05/22/2024, Until Thu06/01/2024, Normal doxylamine (Unisom) 25 MG tablet Take 1 tablet (25 mg) by mouth Nightly as needed for sleep., Starting Thu03/30/2024, Until Thu04/29/2024 at 2359, Normal folic acid (Folvite) 1 MG tablet Take 1 tablet (1 mg) by mouth daily., Starting Thu04/07/2024, Until Thu04/07/2025, Normal hydrOXYzine HCl (Atarax) 50 MG tablet Take 1 tablet (50 mg) by mouth every 8 hours as needed for itching., Starting Thu03/30/2024, Until Thu04/29/2024 at 2359, Normal metoprolol succinate XL (Toprol-XL) 50 MG 24 hr tablet Take 1 tablet (50 mg) by mouth daily. Do notcrush or chew., Starting Thu03/30/2024, Until Thu03/30/2025, Normal !! pantoprazole (ProtoNix) 40 MG EC tablet Take 1 tablet (40 mg) by mouth 2 times daily (before meals). Do not crush, chew, or split., Starting Thu12/17/2023, Until Thu12/16/2024, Normal !! pantoprazole (ProtoNix) 40 MG EC tablet Take 1 tablet (40 mg) by mouth every morning (before breakfast). Do not crush, chew, or split., Starting 05/07/2024, Until Thu06/06/2024, Normal risperiDONE (RisperDAL) 1 MG tablet Take 1 tablet (1 mg) by mouth 2 times daily., Starting Thu04/26/2024, Until Thu04/26/2025, Normal senna-docusate sodium (Senokot-S) 8.6-50 MG tablet Take 2 tablets by mouth daily., Starting Thu04/21/2024, Until Thu04/21/2025, Normal thiamine (Vitamin B1) 100 MG tablet Take 1 tablet (100 mg) by mouth daily., Starting Thu04/07/2024,Normal venlafaxine XR (Effexor XR) 75 MG 24 hr capsule Take 1 capsule (75 mg) by mouth daily (with breakfast). Do not crush or chew., Starting Thu02/17/2024, Until Thu04/17/2024, Normal !! - Potential duplicate medications found. Please discuss with provider. ALLERGIES Patient has no known allergies. FAMILY HISTORY Family History Problem Relation Name Age of Onset No Known Problems Mother No Known Problems Father SOCIAL HISTORY Social History Socioeconomic History Marital status: Single Tobacco Use Smoking status: Every Day Current packs/day: 1.00 Types: Cigarettes Smokeless tobacco: Never Vaping Use Vaping status: Never Used Substance and Sexual Activity Alcohol use: Yes Comment: 2/5 vodka daily Drug use: Not Currently Types: Cocaine, Methamphetamines, Oxycodone, Fentanyl, Heroin, Benzodiazepines Sexual activity: Not Currently Social Drivers of Health Financial Resource Strain: Low Risk (02/05/2024) Overall Financial Resource Strain (CARDIA) Difficulty of Paying Living Expenses: Not hard at all Recent Concern: Financial Resource Strain - Medium Risk (12/14/2023) Overall Financial Resource Strain (CARDIA) Difficulty of Paying Living Expenses: Somewhat hard Food Insecurity: No Food Insecurity (04/20/2024) Hunger Vital Sign Worried About Running Out of Food in the Last Year: Never true Ran Out of Food in the Last Year: Never true Transportation Needs: No Transportation Needs (04/20/2024) PRAPARE - Transportation Lack of Transportation (Medical): No Lack of Transportation (Non-Medical): No Physical Activity: Inactive (02/05/2024) Exercise Vital Sign Days of Exercise per Week: 0 days Minutes of Exercise per Session: 0 min Stress: Stress Concern Present (02/05/2024) [employer] - Occupational Stress Questionnaire Feeling of Stress : To some extent Social Connections: Socially Isolated (02/05/2024) Social Connection and Isolation Panel [NHANES] Frequency of Communication with Friends and Family: More than three times a week Frequency of Social Gatherings with Friends and Family: More than three times a week Attends [employer] Services: Never Active Member of Clubs or Organizations: No Attends Club or Organization Meetings: Never Marital Status: Never Intimate Partner Violence: Not At Risk (04/20/2024) Humiliation, Afraid, Rape, and Kick questionnaire Fear of Current or Ex-Partner: No Emotionally Abused: No Physically Abused: No Sexually Abused: No Housing Stability: Low Risk (04/20/2024) Housing Stability Vital Sign Unable to Pay for Housing in the Last Year: No Number of Times Moved in the Last Year: 0 Homeless in the Last Year: No Recent Concern: Housing Stability - High Risk (02/05/2024) Housing Stability Vital Sign Unable to Pay for Housing in the Last Year: Patient unable to answer Number of Times Moved in the Last Year: 0 Homeless in the Last Year: Yes SCREENINGS PHYSICAL EXAM ED Triage Vitals [05/30/24 2207] Temp Heart Rate Resp BP 36.6 C (97.9 F) 88 18 (!) 149/96 SpO2 Temp Source Heart Rate Source Patient Position 97 % Oral -- -- BP Location FiO2 (%) -- -- Physical Exam Vitals and nursing note reviewed. Constitutional: General: He is not in acute distress. Appearance: He is well-developed. He is not ill-appearing or toxic-appearing. HENT: Head: Normocephalic and atraumatic. Nose: Nose normal. Cardiovascular: Rate and Rhythm: Normal rate and regular rhythm. Pulses: Normal pulses. Heart sounds: Normal heart sounds. No murmur heard. Pulmonary: Effort: Pulmonary effort is normal. No respiratory distress. Breath sounds: Normal breath sounds. Abdominal: General: There is no distension. Palpations: Abdomen is soft. Tenderness: There is no abdominal tenderness. There is left CVA tenderness. There is no right CVA tenderness. Musculoskeletal: General: No swelling. Normal range of motion. Cervical back: Normal range of motion and neck supple. Skin: General: Skin is warm and dry. Capillary Refill: Capillary refill takes less than 2 seconds. Neurological: General: No focal deficit present. Mental Status: He is alert. Mental status is at baseline. DIAGNOSTIC RESULTS RADIOLOGY (Per Emergency Physician): Interpretation per the Radiologist below, if available at the time of this note: CT abdomen pelvis wo IV contrast Final Result 1. Peripancreatic haziness is redemonstrated, which can be seen in the setting of acute pancreatitis. Correlation with appropriate laboratory values is recommended. 2. Hepatomegaly and hepatic steatosis. Report Dictated on Electronically Signed By: Hitesh Nation MD Electronically Signed Date/Time: 05/30/2024 11:03 PM EDT ED BEDSIDE ULTRASOUND: Performed by ED Physician - none LABS: Labs Reviewed COMPREHENSIVE METABOLIC PANEL - Abnormal Result Value SODIUM 137 POTASSIUM 3.3 (*) CHLORIDE 103 CARBON DIOXIDE 20 (*) ANION GAP 14 (*) UREA NITROGEN 4 (*) CREATININE 0.58 (*) GLUCOSE 100 CALCIUM 9.1 AST (SGOT) 132 (*) ALT 89 (*) ALKALINE PHOSPHATASE 188 (*) ALBUMIN 3.7 BILIRUBIN, TOTAL 1.3 (*) TOTAL PROTEIN 7.5 eGFR >90.0 COMPLETE URINALYSIS - Abnormal Color, Urine Yellow Clarity, Urine Clear pH, Urine 7.0 Leukocytes, Urine Negative Nitrite, Urine Negative Protein, Urine 10 (*) Glucose, Urine Normal Bilirubin, Urine Negative Ketones, Urine Trace (*) Urobilinogen, Urine 2 (*) Blood, Urine Negative Volume, Urine 12 mL RBC, Urine 0-2 WBC, Urine 0-2 Squamous Epithelial, Urine Negative Bacteria, Urine Negative Mucus, Urine Moderate (*) SPECIFIC GRAVITY OF URINE (NUMERIC) 1.013 CBC WITH AUTO DIFFERENTIAL - Normal Auto WBC 7.5 RBC 4.45 Hemoglobin 13.5 Hematocrit 40.4 MCV 90.8 MCH 30.3 MCHC 33.4 RDW 14.6 Platelets 234 MPV 10.2 nRBC 0.0 Neutrophils Relative 55.9 Lymphocytes Relative 33.0 Monocytes Relative 8.8 Eosinophils Relative 1.3 Basophils Relative 0.7 Immature Grans % 0.3 Neutrophils Absolute 4.2 Lymphocytes Absolute 2.5 Monocytes Absolute 0.7 Eosinophils Absolute 0.1 Basophils Absolute 0.1 Immature Grans Absolute 0.0 LIPASE - Normal LIPASE 37 COMPLETE URINALYSIS WITH REFLEX TO CULTURE Narrative: The following orders were created for panel order Urinalysis Complete with reflex to Culture. Procedure Abnormality Status --------- ------ Complete Urinalysis[[id number]] Abnormal Final result Please view results for these tests on the individual orders. All other labs were within normal range or not returned as of this dictation. EMERGENCY DEPARTMENT COURSE and DIFFERENTIAL DIAGNOSIS/MDM: Vitals: Vitals: 05/30/24 2207 BP: (!) 149/96 Pulse: 88 Resp: 18 Temp: 36.6 C (97.9 F) TempSrc: Oral SpO2: 97% Weight: 113 kg (250 lb) Height: 1.854 m (6' 1) Diagnoses as of 05/31/24 0200 Acute on chronic pancreatitis (CMS/HCC) ([facility]) The patient presented with chief complaint of back pain. The differential diagnosis associated with this patient's presentation includes pancreatitis, pyelonephritis, kidney stone. Our workup consisted of ordering/reviewing: Labs and imaging. Patient is in agreement with this plan. Medications ketorolac (Toradol) injection 15 mg (15 mg IntraVENous Given 05/30/242220) morphine injection 4 mg (4 mg IntraVENous Given 05/30/242350) ondansetron (Zofran) injection 4 mg (4 mg IntraVENous Given 05/30/242350) REVAL: 38-year-old male with history of chronic pancreatitis presenting to the ED for left-sided back painprogressively worsening with a past few days. Vitals are stable. No focal abdominal tenderness on exam. CT shows concerns for acute on chronic pancreatitis. Labs show LFTs are elevated similar to priors. No leukocytosis. His lipase is normal however we discussed that with his chronic pancreatitis it is unlikely his lipase levels will be elevated in the setting of acute pancreatitis. We will treatwith a course of oxycodone and Zofran. He was given a referral for GI due to his recurrent episodes. He was given return precautions for worsening symptoms. Patient is comfortable to be discharged lindy e. CRITICAL CARE TIME CONSULTS: None PROCEDURES: Unless otherwise noted below, none Procedures Patients symptoms are consistent with sepsis, severe sepsis, or septic shock (If yes use .sepsiscoremeasure): FINAL IMPRESSION 1. Acute on chronic pancreatitis (CMS/HCC) ([facility]) DISPOSITION Discharge 05/30/2024 11:48:08 PM PATIENT REFERRED TO: [facility] - [address] [address] DISCHARGE MEDICATIONS: Discharge Medication List as of 05/30/2024 11:58 PM START taking these medications Details ondansetron ODT (Zofran-ODT) 4 MG disintegrating tablet Take 1 tablet (4 mg) by mouth every 8 hoursas needed for nausea or vomiting., Starting 05/30/2024, Normal oxyCODONE (Roxicodone) 5 MG immediate release tablet Take 1 tablet (5 mg) by mouth every 6 hours asneeded for severe pain (7-10)., Starting 05/30/2024, Normal (Comment: Please note this report has been produced using speech recognition software and may contain errors related to that system including errors in grammar, punctuation, and spelling, as well as words and phrases that may be inappropriate. If there are any questions or concerns please feel freeto contact the dictating provider for clarification.) Mattie Durbin DO (electronically signed) Emergency Medicine Provider Mattie Durbin DO 05/31/24 0203 [place] [id number] Emergency department Note* Martine Guzman RN - 05/22/2024 2:03 PM EDT Abdominal pain Pancreatitis was seen 3 days ago and was told if pain got worse to come back. Now also having chest pain and kidney pain [id number]* Judith Valles PA-C - 05/22/2024 2:03 PM EDT [facility] ED eMERGENCY dEPARTMENT eNCOUnter Pt Name: Roro Valdivia Birthdate 1985 Date of evaluation: 05/22/2024 Provider: Judith Valles PA-C CHIEF COMPLAINT Chief Complaint Patient presents with Abdominal Pain Abdominal pain Pancreatitis was seen 3 days ago and was told if pain got worse to come back HISTORY OF PRESENT ILLNESS (Location/Symptom, Timing/Onset,Context/Setting, Quality, Duration, Modifying Factors, Severity) Note limiting factors. HPI Roro Valdivia is a 38 y.o. male who presents to the emergency department complaining of midepigastric and right upper quadrant abdominal pain. Patient has had a history of recurrent alcohol inducedpancreatitis. He was seen in a [facility] emergency department somewhere in [place] 3 days ago.He states he was told if he got any worse that he should go to the emergency department. He states he is 10 times worse than he was 3 days ago. Patient is now complaining of generalized abdominal pain most prominently on the right side. Nursing Notes were reviewed. REVIEW OF SYSTEMS (2+ for4; 10+ for level 5) Review of Systems Constitutional: Negative for chills and fever. HENT: Negative for ear pain and sore throat. Eyes: Negative for pain and visual disturbance. Respiratory: Negative for cough and shortness of breath. Cardiovascular: Negative for chest pain and palpitations. Gastrointestinal: Positive for abdominal pain. Negative for vomiting. Genitourinary: Negative for dysuria and hematuria. Musculoskeletal: Negative for arthralgias and back pain. Skin: Negative for color change and rash. Neurological: Negative for seizures and syncope. All other systems reviewed and are negative. PAST MEDICAL HISTORY Past Medical History: Diagnosis Date Addiction to drug ([facility]) ([facility]) Alcohol abuse Alcohol withdrawal syndrome without complication ([facility]) 06/27/2022 Alcohol withdrawal with inpatient treatment, uncomplicated ([facility]) 03/15/2022 GERD (gastroesophageal reflux disease) History of pancreatitis 01/07/2023 Hypertension Pancreatitis Seizures ([facility]) SVT (supraventricular tachycardia) ([facility]) Tourette syndrome SURGICALHISTORY Past Surgical History: Procedure Laterality Date APPENDECTOMY CURRENT MEDICATIONS Previous Medications CALCIUM CARBONATE (TUMS) 500 MG CHEWABLE TABLET Chew 1 tablet (500 mg) 3 times daily as needed for heartburn. CLONIDINE (CATAPRES) 0.1 MG TABLET Take 0.1 mg by mouth 2 times daily. DOXYLAMINE (UNISOM) 25 MG TABLET Take 1 tablet (25 mg) by mouth Nightly as needed for sleep. FOLIC ACID (FOLVITE) 1 MG TABLET Take 1 tablet (1 mg) by mouth daily. HYDROXYZINE HCL (ATARAX) 50 MG TABLET Take 1 tablet (50 mg) by mouth every 8 hours as needed for itching. METOPROLOL SUCCINATE XL (TOPROL-XL) 50 MG 24 HR TABLET Take 1 tablet (50 mg) by mouth daily. Do notcrush or chew. PANTOPRAZOLE (PROTONIX) 40 MG EC TABLET Take 1 tablet (40 mg) by mouth 2 times daily (before meals). Do not crush, chew, or split. PANTOPRAZOLE (PROTONIX) 40 MG EC TABLET Take 1 tablet (40 mg) by mouth every morning (before breakfast). Do not crush, chew, or split. RISPERIDONE (RISPERDAL) 1 MG TABLET Take 1 tablet (1 mg) by mouth 2 times daily. SENNA-DOCUSATE SODIUM (SENOKOT-S) 8.6-50 MG TABLET Take 2 tablets by mouth daily. THIAMINE (VITAMIN B1) 100 MG TABLET Take 1 tablet (100 mg) by mouth daily. VENLAFAXINE XR (EFFEXOR XR) 75 MG 24 HR CAPSULE Take 1 capsule (75 mg) by mouth daily (with breakfast). Do not crush or chew. Patient has no known allergies. FAMILY HISTORY Family History Problem Relation Name Age of Onset No Known Problems Mother No Known Problems Father SOCIAL HISTORY Social History Socioeconomic History Marital status: Single Tobacco Use Smoking status: Every Day Current packs/day: 1.00 Types: Cigarettes Smokeless tobacco: Never Vaping Use Vaping status: Never Used Substance and Sexual Activity Alcohol use: Yes Comment: 2/ vodka daily Drug use: Not Currently Types: Cocaine, Methamphetamines, Oxycodone, Fentanyl, Heroin, Benzodiazepines Sexual activity: Not Currently Social Drivers of Health Financial Resource Strain: Low Risk (02/05/2024) Overall Financial Resource Strain (CARDIA) Difficulty of Paying Living Expenses: Not hard at all Recent Concern: Financial Resource Strain - Medium Risk (12/14/2023) Overall Financial Resource Strain (CARDIA) Difficulty of Paying Living Expenses: Somewhat hard Food Insecurity: No Food Insecurity (04/20/2024) Hunger Vital Sign Worried About Running Out of Food in the Last Year: Never true Ran Out of Food in the Last Year: Never true Transportation Needs: No Transportation Needs (04/20/2024) PRAPARE - Transportation Lack of Transportation (Medical): No Lack of Transportation (Non-Medical): No Physical Activity: Inactive (02/05/2024) Exercise Vital Sign Days of Exercise per Week: 0 days Minutes of Exercise per Session: 0 min Stress: Stress Concern Present (02/05/2024) [employer] - Occupational Stress Questionnaire Feeling of Stress : To some extent Social Connections: Socially Isolated (02/05/2024) Social Connection and Isolation Panel [NHANES] Frequency of Communication with Friends and Family: More than three times a week Frequency of Social Gatherings with Friends and Family: More than three times a week Attends [employer] Services: Never Active Member of Clubs or Organizations: No Attends Club or Organization Meetings: Never Marital Status: Never Intimate Partner Violence: Not At Risk (04/20/2024) Humiliation, Afraid, Rape, and Kick questionnaire Fear of Current or Ex-Partner: No Emotionally Abused: No Physically Abused: No Sexually Abused: No Housing Stability: Low Risk (04/20/2024) Housing Stability Vital Sign Unable to Pay for Housing in the Last Year: No Number of Times Moved in the Last Year: 0 Homeless in the Last Year: No Recent Concern: Housing Stability - High Risk (02/05/2024) Housing Stability Vital Sign Unable to Pay for Housing in the Last Year: Patient unable to answer Number of Times Moved in the Last Year: 0 Homeless in the Last Year: Yes SCREENINGS PHYSICAL EXAM (5+ for level 4, 8+ for level 5) @EDTRIAGEVSS@ Physical Exam Vitals and nursing note reviewed. Constitutional: General: He is not in acute distress. Appearance: He is well-developed. He is not ill-appearing. HENT: Head: Normocephalic and atraumatic. Eyes: Conjunctiva/sclera: Conjunctivae normal. Cardiovascular: Rate and Rhythm: Normal rate and regular rhythm. Heart sounds: No murmur heard. Pulmonary: Effort: Pulmonary effort is normal. No respiratory distress. Breath sounds: Normal breath sounds. Abdominal: Palpations: Abdomen is soft. Comments: Abdomen is soft, nondistended, with tenderness across all 4 quadrants, right sided greater than left. No rebound tenderness or guarding. No organomegaly or abnormal masses palpated. Bowel sounds active. Musculoskeletal: General: No swelling. Skin: General: Skin is warm and dry. Neurological: Mental Status: He is alert and oriented to person, place, and time. Psychiatric: Mood and Affect: Mood normal. Behavior: Behavior normal. DIAGNOSTIC RESULTS EKG (Per Emergency Physician): RADIOLOGY (Per EmergencyPhysician): Interpretation per the Radiologist below, if available at the time of this note: @EDRISRSLT@ : Labs Reviewed BASIC METABOLIC PANEL - Abnormal Result Value SODIUM 138 POTASSIUM 3.9 CHLORIDE 102 CARBON DIOXIDE 24 UREA NITROGEN 4 (*) CREATININE 0.69 (*) GLUCOSE 148 (*) CALCIUM 9.5 ANION GAP 12 eGFR >90.0 HEPATIC FUNCTION PANEL - Abnormal BILIRUBIN, TOTAL 2.6 (*) BILIRUBIN, DIRECT 1.7 (*) ALKALINE PHOSPHATASE 187 (*) AST (SGOT) 119 (*) ALT 75 (*) ALBUMIN 4.0 TOTAL PROTEIN 7.5 CBC WITH AUTO DIFFERENTIAL - Normal Auto WBC 6.3 RBC 4.71 Hemoglobin 14.3 Hematocrit 42.6 MCV 90.4 MCH 30.4 MCHC 33.6 RDW 14.6 Platelets 144 MPV 10.5 nRBC 0.0 Neutrophils Relative 76.7 Lymphocytes Relative 16.0 Monocytes Relative 6.0 Eosinophils Relative 0.8 Basophils Relative 0.3 Immature Grans % 0.2 Neutrophils Absolute 4.8 Lymphocytes Absolute 1.0 Monocytes Absolute 0.4 Eosinophils Absolute 0.1 Basophils Absolute 0.0 Immature Grans Absolute 0.0 LIPASE - Normal LIPASE 50 COMPLETE URINALYSIS WITH REFLEX TO CULTURE Narrative: The following orders were created for panel order Complete Urinalysis with reflex to Culture. Procedure Abnormality Status --------- ------ Complete Urinalysis[[id number]] Please view results for these tests on the individual orders. COMPLETE URINALYSIS All other labs were within normal range or not returned as of this dictation. EMERGENCY DEPARTMENT COURSE and DIFFERENTIALDIAGNOSIS/MDM: Vitals: Vitals: 05/22/24 1409 05/22/24 1630 BP: (!) 187/121 (!) 162/87 BP Location: Right arm Patient Position: Sitting Pulse: 98 71 Resp: 16 16 Temp: 36.1 C (97 F) TempSrc: Temporal SpO2: 97% 97% Medications pantoprazole (ProtoNix) 40 mg in sodium chloride (PF) 0.9 % 10 mL injection (40 mg IntraVENous Not Given 05/22/24 1555) ondansetron (Zofran) injection 4 mg (4 mg IntraVENous Given 05/22/24 1504) ketorolac (Toradol) injection 15 mg (15 mg IntraVENous Given 05/22/24 1505) iopamidol (Isovue-370) 76 % injection 75 mL (75 mL IntraVENous Given 05/22/24 1613) Medical Decision Making Problems Addressed: Abdominal pain, generalized: complicated acute illness or injury Alcohol-induced chronic pancreatitis (CMS/HCC) (HCC): complicated acute illness or injury Amount and/or Complexity of Data Reviewed Labs: ordered. Radiology: ordered. Risk Prescription drug management. Patient presents to the emergency department complaining of increasing abdominal pain. He was seen at a freestanding ED in [place] 3 days ago. He has a history of recurrent alcohol induced pancreatitis. He was told that the pain got worse that he should come to the emergency department. Patient states that the pain is 10 times worse than it was. Patient is now complaining of diffuse abdominal pain,right side greater than left. Differential diagnosis includes pancreatitis, gastritis, gastroenteritis, gallbladder disease, colitis, bowel obstruction, diverticulitis, kidney stone, pyelonephritis, UTI, viral illness Chronic conditions impacting care: Severe opioid use disorder, cocaine abuse, alcohol abuse, amphetamine abuse, alcohol use pancreatitis, GERD, hypertension, SVT, Tourette's Social determinants polysubstance abuse, alcohol abuse, nicotine dependence ED diagnostics interpreted by me included CBC, lipase, BMP, hepatic function panel, ethanol and urinalysis. CT scan of the abdomen and pelvis with IV contrast, per radiologist review, shows mild. Pancreatic fat stranding similar to appearance on 05/07/2024. ED medications included IV hydration with 1 L normal saline. He is given he was given IV Toradol. External medical records reviewed including ED visit to [facility] on 05/07/[address] Lyons for alcohol induced pancreatitis. Patient appears well. Vital signs are stable. Lipase is normal. He will be discharged home. He is given home-going instructions on abdominal pain. I will send a referral to GI for follow-up care. I will also send a prescription for Bentyl and Phenergan to his local pharmacy. He can follow-up with Dr. Hughes. He can return should signs and symptoms worsen in any way or any other concerns develop. Patient expressed an understanding of verbal instruction and had no further questions at the time of discharge. This patient was seen by myself, within my scope of practice, with the Emergency Department physician available for consultation at all times if needed. CONSULTS: None PROCEDURES: Unless otherwise noted below, none Procedures Patients symptoms are consistent with sepsis, severe sepsis, or septic shock (If yes use .sepsiscoremeasure): No FINAL IMPRESSION 1. Alcohol-induced chronic pancreatitis (CMS/HCC) (HCC) 2. Abdominal pain, generalized DISPOSITION/PLAN DISPOSITION Discharge 05/22/2024 05:08:12 PM PATIENT REFERRED TO: [facility] [address] [address] Schedule an appointment as soon as possible for a visit in 3 days DISCHARGE MEDICATIONS: New Prescriptions DICYCLOMINE (BENTYL) 20 MG TABLET Take 1 tablet (20 mg) by mouth 2 times daily for 10 days. PROMETHAZINE (PHENERGAN) 25 MG TABLET Take 1 tablet (25 mg) by mouth every 6 hours as needed for nausea or vomiting for up to 7 days. @[facility]([id number]:LAST:1)@ (Please note: Portions of this note were completed with a voice recognition program. Efforts were made to edit thedictations but occasionally words and phrases are mis-transcribed.) Form [id number] Judith Valles PA-C (electronically signed) Emergency Medicine Provider Judith Valles PA-C 05/22/24 1712 * Martine Guzman RN - 05/22/2024 2:03 PM EDT Abdominal pain Pancreatitis was seen 3 days ago and was told if pain got worse to come back. Now also having chest pain and kidney pain documented in this [place] [id number] Physician Emergency department Note* Judith Valles PA-C - 05/22/2024 2:03 PM EDT [facility] ED eMERGENCY dEPARTMENT eNCOUnter Pt Name: Roro Valdivia Birthdate 1985 Date of evaluation: 05/22/2024 Provider: Judith Valles PA-C CHIEF COMPLAINT Chief Complaint Patient presents with Abdominal Pain Abdominal pain Pancreatitis was seen 3 days ago and was told if pain got worse to come back HISTORY OF PRESENT ILLNESS (Location/Symptom, Timing/Onset,Context/Setting, Quality, Duration, Modifying Factors, Severity) Note limiting factors. HPI Roro Valdivia is a 38 y.o. male who presents to the emergency department complaining of midepigastric and right upper quadrant abdominal pain. Patient has had a history of recurrent alcohol inducedpancreatitis. He was seen in a day freestanding emergency department somewhere in [place] 3 days ago.He states he was told if he got any worse that he should go to the emergency department. He states he is 10 times worse than he was 3 days ago. Patient is now complaining of generalized abdominal pain most prominently on the right side. Nursing Notes were reviewed. REVIEW OF SYSTEMS (2+ for4; 10+ for level 5) Review of Systems Constitutional: Negative for chills and fever. HENT: Negative for ear pain and sore throat. Eyes: Negative for pain and visual disturbance. Respiratory: Negative for cough and shortness of breath. Cardiovascular: Negative for chest pain and palpitations. Gastrointestinal: Positive for abdominal pain. Negative for vomiting. Genitourinary: Negative for dysuria and hematuria. Musculoskeletal: Negative for arthralgias and back pain. Skin: Negative for color change and rash. Neurological: Negative for seizures and syncope. All other systems reviewed and are negative. PAST MEDICAL HISTORY Past Medical History: Diagnosis Date Addiction to drug ([facility]) ([facility]) Alcohol abuse Alcohol withdrawal syndrome without complication ([facility]) 06/27/2022 Alcohol withdrawal with inpatient treatment, uncomplicated ([facility]) 03/15/2022 GERD (gastroesophageal reflux disease) History of pancreatitis 01/07/2023 Hypertension Pancreatitis Seizures ([facility]) SVT (supraventricular tachycardia) ([facility]) Tourette syndrome SURGICALHISTORY Past Surgical History: Procedure Laterality Date APPENDECTOMY CURRENT MEDICATIONS Previous Medications CALCIUM CARBONATE (TUMS) 500 MG CHEWABLE TABLET Chew 1 tablet (500 mg) 3 times daily as needed for heartburn. CLONIDINE (CATAPRES) 0.1 MG TABLET Take 0.1 mg by mouth 2 times daily. DOXYLAMINE (UNISOM) 25 MG TABLET Take 1 tablet (25 mg) by mouth Nightly as needed for sleep. FOLIC ACID (FOLVITE) 1 MG TABLET Take 1 tablet (1 mg) by mouth daily. HYDROXYZINE HCL (ATARAX) 50 MG TABLET Take 1 tablet (50 mg) by mouth every 8 hours as needed for itching. METOPROLOL SUCCINATE XL (TOPROL-XL) 50 MG 24 HR TABLET Take 1 tablet (50 mg) by mouth daily. Do notcrush or chew. PANTOPRAZOLE (PROTONIX) 40 MG EC TABLET Take 1 tablet (40 mg) by mouth 2 times daily (before meals). Do not crush, chew, or split. PANTOPRAZOLE (PROTONIX) 40 MG EC TABLET Take 1 tablet (40 mg) by mouth every morning (before breakfast). Do not crush, chew, or split. RISPERIDONE (RISPERDAL) 1 MG TABLET Take 1 tablet (1 mg) by mouth 2 times daily. SENNA-DOCUSATE SODIUM (SENOKOT-S) 8.6-50 MG TABLET Take 2 tablets by mouth daily. THIAMINE (VITAMIN B1) 100 MG TABLET Take 1 tablet (100 mg) by mouth daily. VENLAFAXINE XR (EFFEXOR XR) 75 MG 24 HR CAPSULE Take 1 capsule (75 mg) by mouth daily (with breakfast). Do not crush or chew. Patient has no known allergies. FAMILY HISTORY Family History Problem Relation Name Age of Onset No Known Problems Mother No Known Problems Father SOCIAL HISTORY Social History Socioeconomic History Marital status: Single Tobacco Use Smoking status: Every Day Current packs/day: 1.00 Types: Cigarettes Smokeless tobacco: Never Vaping Use Vaping status: Never Used Substance and Sexual Activity Alcohol use: Yes Comment: 2/5 vodka daily Drug use: Not Currently Types: Cocaine, Methamphetamines, Oxycodone, Fentanyl, Heroin, Benzodiazepines Sexual activity: Not Currently Social Drivers of Health Financial Resource Strain: Low Risk (02/05/2024) Overall Financial Resource Strain (CARDIA) Difficulty of Paying Living Expenses: Not hard at all Recent Concern: Financial Resource Strain - Medium Risk (12/14/2023) Overall Financial Resource Strain (CARDIA) Difficulty of Paying Living Expenses: Somewhat hard Food Insecurity: No Food Insecurity (04/20/2024) Hunger Vital Sign Worried About Running Out of Food in the Last Year: Never true Ran Out of Food in the Last Year: Never true Transportation Needs: No Transportation Needs (04/20/2024) PRAPARE - Transportation Lack of Transportation (Medical): No Lack of Transportation (Non-Medical): No Physical Activity: Inactive (02/05/2024) Exercise Vital Sign Days of Exercise per Week: 0 days Minutes of Exercise per Session: 0 min Stress: Stress Concern Present (02/05/2024) [employer] - Occupational Stress Questionnaire Feeling of Stress : To some extent Social Connections: Socially Isolated (02/05/2024) Social Connection and Isolation Panel [NHANES] Frequency of Communication with Friends and Family: More than three times a week Frequency of Social Gatherings with Friends and Family: More than three times a week Attends [employer] Services: Never Active Member of Clubs or Organizations: No Attends Club or Organization Meetings: Never Marital Status: Never Intimate Partner Violence: Not At Risk (04/20/2024) Humiliation, Afraid, Rape, and Kick questionnaire Fear of Current or Ex-Partner: No Emotionally Abused: No Physically Abused: No Sexually Abused: No Housing Stability: Low Risk (04/20/2024) Housing Stability Vital Sign Unable to Pay for Housing in the Last Year: No Number of Times Moved in the Last Year: 0 Homeless in the Last Year: No Recent Concern: Housing Stability - High Risk (02/05/2024) Housing Stability Vital Sign Unable to Pay for Housing in the Last Year: Patient unable to answer Number of Times Moved in the Last Year: 0 Homeless in the Last Year: Yes SCREENINGS PHYSICAL EXAM (5+ for level 4, 8+ for level 5) @EDTRIAGEVSS@ Physical Exam Vitals and nursing note reviewed. Constitutional: General: He is not in acute distress. Appearance: He is well-developed. He is not ill-appearing. HENT: Head: Normocephalic and atraumatic. Eyes: Conjunctiva/sclera: Conjunctivae normal. Cardiovascular: Rate and Rhythm: Normal rate and regular rhythm. Heart sounds: No murmur heard. Pulmonary: Effort: Pulmonary effort is normal. No respiratory distress. Breath sounds: Normal breath sounds. Abdominal: Palpations: Abdomen is soft. Comments: Abdomen is soft, nondistended, with tenderness across all 4 quadrants, right sided greater than left. No rebound tenderness or guarding. No organomegaly or abnormal masses palpated. Bowel sounds active. Musculoskeletal: General: No swelling. Skin: General: Skin is warm and dry. Neurological: Mental Status: He is alert and oriented to person, place, and time. Psychiatric: Mood and Affect: Mood normal. Behavior: Behavior normal. DIAGNOSTIC RESULTS EKG (Per Emergency Physician): RADIOLOGY (Per EmergencyPhysician): Interpretation per the Radiologist below, if available at the time of this note: @EDRISRSLT@ : Labs Reviewed BASIC METABOLIC PANEL - Abnormal Result Value SODIUM 138 POTASSIUM 3.9 CHLORIDE 102 CARBON DIOXIDE 24 UREA NITROGEN 4 (*) CREATININE 0.69 (*) GLUCOSE 148 (*) CALCIUM 9.5 ANION GAP 12 eGFR >90.0 HEPATIC FUNCTION PANEL - Abnormal BILIRUBIN, TOTAL 2.6 (*) BILIRUBIN, DIRECT 1.7 (*) ALKALINE PHOSPHATASE 187 (*) AST (SGOT) 119 (*) ALT 75 (*) ALBUMIN 4.0 TOTAL PROTEIN 7.5 CBC WITH AUTO DIFFERENTIAL - Normal Auto WBC 6.3 RBC 4.71 Hemoglobin 14.3 Hematocrit 42.6 MCV 90.4 MCH 30.4 MCHC 33.6 RDW 14.6 Platelets 144 MPV 10.5 nRBC 0.0 Neutrophils Relative 76.7 Lymphocytes Relative 16.0 Monocytes Relative 6.0 Eosinophils Relative 0.8 Basophils Relative 0.3 Immature Grans % 0.2 Neutrophils Absolute 4.8 Lymphocytes Absolute 1.0 Monocytes Absolute 0.4 Eosinophils Absolute 0.1 Basophils Absolute 0.0 Immature Grans Absolute 0.0 LIPASE - Normal LIPASE 50 COMPLETE URINALYSIS WITH REFLEX TO CULTURE Narrative: The following orders were created for panel order Complete Urinalysis with reflex to Culture. Procedure Abnormality Status --------- ------ Complete Urinalysis[[id number]] Please view results for these tests on the individual orders. COMPLETE URINALYSIS All other labs were within normal range or not returned as of this dictation. EMERGENCY DEPARTMENT COURSE and DIFFERENTIALDIAGNOSIS/MDM: Vitals: Vitals: 05/22/24 1409 05/22/24 1630 BP: (!) 187/121 (!) 162/87 BP Location: Right arm Patient Position: Sitting Pulse: 98 71 Resp: 16 16 Temp: 36.1 C (97 F) TempSrc: Temporal SpO2: 97% 97% Medications pantoprazole (ProtoNix) 40 mg in sodium chloride (PF) 0.9 % 10 mL injection (40 mg IntraVENous Not Given 05/22/24 1555) ondansetron (Zofran) injection 4 mg (4 mg IntraVENous Given 05/22/24 1504) ketorolac (Toradol) injection 15 mg (15 mg IntraVENous Given 05/22/24 1505) iopamidol (Isovue-370) 76 % injection 75 mL (75 mL IntraVENous Given 05/22/24 1613) Medical Decision Making Problems Addressed: Abdominal pain, generalized: complicated acute illness or injury Alcohol-induced chronic pancreatitis (CMS/HCC) (HCC): complicated acute illness or injury Amount and/or Complexity of Data Reviewed Labs: ordered. Radiology: ordered. Risk Prescription drug management. Patient presents to the emergency department complaining of increasing abdominal pain. He was seen at a freestanding ED in [place] 3 days ago. He has a history of recurrent alcohol induced pancreatitis. He was told that the pain got worse that he should come to the emergency department. Patient states that the pain is 10 times worse than it was. Patient is now complaining of diffuse abdominal pain,right side greater than left. Differential diagnosis includes pancreatitis, gastritis, gastroenteritis, gallbladder disease, colitis, bowel obstruction, diverticulitis, kidney stone, pyelonephritis, UTI, viral illness Chronic conditions impacting care: Severe opioid use disorder, cocaine abuse, alcohol abuse, amphetamine abuse, alcohol use pancreatitis, GERD, hypertension, SVT, Tourette's Social determinants polysubstance abuse, alcohol abuse, nicotine dependence ED diagnostics interpreted by me included CBC, lipase, BMP, hepatic function panel, ethanol and urinalysis. CT scan of the abdomen and pelvis with IV contrast, per radiologist review, shows mild. Pancreatic fat stranding similar to appearance on 05/07/2024. ED medications included IV hydration with 1 L normal saline. He is given he was given IV Toradol. External medical records reviewed including ED visit to [facility] on 05/07/[address] Lyons for alcohol induced pancreatitis. Patient appears well. Vital signs are stable. Lipase is normal. He will be discharged home. He is given home-going instructions on abdominal pain. I will send a referral to GI for follow-up care. I will also send a prescription for Bentyl and Phenergan to his local pharmacy. He can follow-up with Dr. Hughes. He can return should signs and symptoms worsen in any way or any other concerns develop. Patient expressed an understanding of verbal instruction and had no further questions at the time of discharge. This patient was seen by myself, within my scope of practice, with the Emergency Department physician available for consultation at all times if needed. CONSULTS: None PROCEDURES: Unless otherwise noted below, none Procedures Patients symptoms are consistent with sepsis, severe sepsis, or septic shock (If yes use .sepsiscoremeasure): No FINAL IMPRESSION 1. Alcohol-induced chronic pancreatitis (CMS/HCC) (HCC) 2. Abdominal pain, generalized DISPOSITION/PLAN DISPOSITION Discharge 05/22/2024 05:08:12 PM PATIENT REFERRED TO: [facility] [address] [address] Schedule an appointment as soon as possible for a visit in 3 days DISCHARGE MEDICATIONS: New Prescriptions DICYCLOMINE (BENTYL) 20 MG TABLET Take 1 tablet (20 mg) by mouth 2 times daily for 10 days. PROMETHAZINE (PHENERGAN) 25 MG TABLET Take 1 tablet (25 mg) by mouth every 6 hours as needed for nausea or vomiting for up to 7 days. @[facility]([id number]:LAST:1)@ (Please note: Portions of this note were completed with a voice recognition program. Efforts were made to edit thedictations but occasionally words and phrases are mis-transcribed.) Form [id number] uJdith Valles PA-C (electronically signed) Emergency Medicine Provider Judith Valles PA-C 05/22/24 171 [id number] Telephone encounter Note* Telephone Encounter - Roma Mckeznie RN - 05/21/2024 4:17 PM EDT This [facility] RN called patient for follow up, voicemail received, message left. [address] [id number] Miscellaneous Notes* Telephone Encounter - Roma Mckenzie RN - 05/21/2024 4:17 PM EDT This [facility] RN called patient for follow up, voicemail received, message left. documented in this [place]SW[place] [id number] Telephone encounter Note* Telephone Encounter - Roma Mckenzie RN - 05/16/2024 12:15 PM EDT This [facility] RN called patient for follow up, voicemail received, message left. [id number] Miscellaneous Notes* Telephone Encounter - Roma Mckenzie RN - 05/16/2024 12:15 PM EDT This [facility] RN called patient for follow up, voicemail received, message left. documented in this encounterSDayton Children's [id number] Emergency department Note* Ana Wang RN - 05/07/2024 4:26 PM EDT Pt states he drank alcohol 3 days ago and then drank this morning. [id number] Emergency [facility]* Ana Wang RN - 05/07/2024 4:26 PM EDT Pt states he drank alcohol 3 days ago and then drank this morning. * Markie Lyons DO - 05/07/2024 4:18 PM EDT EMERGENCY DEPARTMENT ENCOUNTER Pt Name: Roro Valdivia Birthdate 1985 Date of evaluation: 05/07/2024 ED Provider: Markie Lyons DO CHIEF COMPLAINT Chief Complaint Patient presents with Vomiting Pt states he vomited the past 2 days, but none diarrhea. States he had some blood in his emesis. [place] of vomiting.Decreased appetite HISTORY OF PRESENT ILLNESS (Location/Symptom, Timing/Onset, Context/Setting, Quality, Duration, Modifying Factors, Severity) Note limiting factors. I wore appropriate PPE for the entirety of this encounter. HPI Roro Valdivia is a 38 y.o. male who presents to the emergency department nausea vomiting and upper abdominal discomfort. States he was admitted earlier this month with alcohol induced pancreatitis.States he was detoxed during the admission as well with Ativan. States he takes a few sips of alcohol every morning to help his Tourette's syndrome. States 3 days ago he noticed more right upper quadrant abdominal pain rather than the typical pancreatitis epigastric pain. Had some vomiting yesterday with a small amount of bright red blood in that. Has not had any vomiting today, symptoms are well-controlled with Zofran Tylenol and Motrin which she has been taking for the pain. Denies any other f sriram or chills. Nursing Notes were reviewed. REVIEW OF SYSTEMS 14 systems reviewed and otherwise acutely negative except as in the [place]. 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/HCC) (HCC) Alcohol abuse Alcohol withdrawal syndrome without complication ([facility]) 06/27/2022 Alcohol withdrawal with inpatient treatment, uncomplicated ([facility]) 03/15/2022 GERD (gastroesophageal reflux disease) History of pancreatitis 01/07/2023 Hypertension Pancreatitis Seizures ([facility]) SVT (supraventricular tachycardia) ([facility]) Tourette syndrome SURGICAL HISTORY Past Surgical History: Procedure Laterality Date APPENDECTOMY CURRENT MEDICATIONS Discharge Medication List as of 05/07/2024 6:03 PM CONTINUE these medications which have NOT CHANGED Details calcium carbonate (Tums) 500 MG chewable tablet Chew 1 tablet (500 mg) 3 times daily as needed for heartburn., Starting Thu04/20/2024, Until Thu04/20/2025 at 2359, Normal cloNIDine (Catapres) 0.1 MG tablet Take 0.1 mg by mouth 2 times daily., Historical Med doxylamine (Unisom) 25 MG tablet Take 1 tablet (25 mg) by mouth Nightly as needed for sleep., Starting Thu03/30/2024, Until Thu04/29/2024 at 2359, Normal folic acid (Folvite) 1 MG tablet Take 1 tablet (1 mg) by mouth daily., Starting Thu04/07/2024, Until Thu04/07/2025, Normal hydrOXYzine HCl (Atarax) 50 MG tablet Take 1 tablet (50 mg) by mouth every 8 hours as needed for itching., Starting Thu03/30/2024, Until Thu04/29/2024 at 2359, Normal metoprolol succinate XL (Toprol-XL) 50 MG 24 hr tablet Take 1 tablet (50 mg) by mouth daily. Do notcrush or chew., Starting Thu03/30/2024, Until Thu03/30/2025, Normal !! pantoprazole (ProtoNix) 40 MG EC tablet Take 1 tablet (40 mg) by mouth 2 times daily (before meals). Do not crush, chew, or split., Starting Thu12/17/2023, Until Thu12/16/2024, Normal risperiDONE (RisperDAL) 1 MG tablet Take 1 tablet (1 mg) by mouth 2 times daily., Starting Thu04/26/2024, Until Thu04/26/2025, Normal senna-docusate sodium (Senokot-S) 8.6-50 MG tablet Take 2 tablets by mouth daily., Starting Thu04/21/2024, Until Thu04/21/2025, Normal thiamine (Vitamin B1) 100 MG tablet Take 1 tablet (100 mg) by mouth daily., Starting Thu04/07/2024,Normal venlafaxine XR (Effexor XR) 75 MG 24 hr capsule Take 1 capsule (75 mg) by mouth daily (with breakfast). Do not crush or chew., Starting Thu02/17/2024, Until Thu04/17/2024, Normal !! - Potential duplicate medications found. Please discuss with provider. ALLERGIES Patient has no known allergies. FAMILY HISTORY Family History Problem Relation Name Age of Onset No Known Problems Mother No Known Problems Father SOCIAL HISTORY Social History Socioeconomic History Marital status: Single Tobacco Use Smoking status: Every Day Current packs/day: 1.00 Types: Cigarettes Smokeless tobacco: Never Vaping Use Vaping status: Never Used Substance and Sexual Activity Alcohol use: Yes Comment: 2/5 vodka daily Drug use: Not Currently Types: Cocaine, Methamphetamines, Oxycodone, Fentanyl, Heroin, Benzodiazepines Sexual activity: Not Currently Social Drivers of Health Financial Resource Strain: Low Risk (02/05/2024) Overall Financial Resource Strain (CARDIA) Difficulty of Paying Living Expenses: Not hard at all Recent Concern: Financial Resource Strain - Medium Risk (12/14/2023) Overall Financial Resource Strain (CARDIA) Difficulty of Paying Living Expenses: Somewhat hard Food Insecurity: No Food Insecurity (04/20/2024) Hunger Vital Sign Worried About Running Out of Food in the Last Year: Never true Ran Out of Food in the Last Year: Never true Transportation Needs: No Transportation Needs (04/20/2024) PRAPARE - Transportation Lack of Transportation (Medical): No Lack of Transportation (Non-Medical): No Physical Activity: Inactive (02/05/2024) Exercise Vital Sign Days of Exercise per Week: 0 days Minutes of Exercise per Session: 0 min Stress: Stress Concern Present (02/05/2024) [employer] - Occupational Stress Questionnaire Feeling of Stress : To some extent Social Connections: Socially Isolated (02/05/2024) Social Connection and Isolation Panel [NHANES] Frequency of Communication with Friends and Family: More than three times a week Frequency of Social Gatherings with Friends and Family: More than three times a week Attends [employer] Services: Never Active Member of Clubs or Organizations: No Attends Club or Organization Meetings: Never Marital Status: Never Intimate Partner Violence: Not At Risk (04/20/2024) Humiliation, Afraid, Rape, and Kick questionnaire Fear of Current or Ex-Partner: No Emotionally Abused: No Physically Abused: No Sexually Abused: No Housing Stability: Low Risk (04/20/2024) Housing Stability Vital Sign Unable to Pay for Housing in the Last Year: No Number of Times Moved in the Last Year: 0 Homeless in the Last Year: No Recent Concern: Housing Stability - High Risk (02/05/2024) Housing Stability Vital Sign Unable to Pay for Housing in the Last Year: Patient unable to answer Number of Times Moved in the Last Year: 0 Homeless in the Last Year: Yes SCREENINGS PHYSICAL EXAM ED Triage Vitals [05/07/24 1627] Temp Heart Rate Resp BP 36.3 C (97.4 F) 84 16 (!) 169/106 SpO2 Temp Source Heart Rate Source Patient Position 98 % Temporal Monitor -- BP Location FiO2 (%) -- -- CONSTITUTIONAL: AOx4, no apparent distress, appears stated age HEAD: normocephalic, atraumatic EYES: PERRL, EOMI ENT: Dry mucous membranes, uvula midline NECK: supple, symmetric BACK: symmetric LUNGS: clear to auscultation bilaterally CARDIOVASCULAR: regular rate and rhythm ABDOMEN: soft, mild epigastric tenderness to palpation, non-distended with normal active bowel sounds : deferred NEUROLOGIC: MAEx4, no focal sensory or motor deficits MUSCULOSKELETAL: no clubbing, cyanosis or edema SKIN: no exposed rash DIAGNOSTIC RESULTS Procedures/EKG: EKG was reviewed by myself. Physician EKG interpretation can be found in [facility] RADIOLOGY (Per Emergency Physician): Interpretation per the Radiologist below, if available at the time of this note: CT abdomen pelvis wo IV contrast Final Result 1. Findings compatible with pancreatitis, similar to comparison. Correlation with appropriate laboratory values and follow-up suggested. 2. Hepatosplenomegaly, and hepatic steatosis. Report Dictated on Electronically Signed By: Paul Plata MD Electronically Signed Date/Time: 05/07/2024 5:37 PM EDT ED BEDSIDE ULTRASOUND: Performed by ED Physician - none LABS: Labs Reviewed CBC WITH AUTO DIFFERENTIAL - Abnormal Result Value Auto WBC 5.0 RBC 4.55 Hemoglobin 13.8 Hematocrit 40.9 MCV 89.9 MCH 30.3 MCHC 33.7 RDW 15.6 (*) Platelets 170 MPV 10.2 nRBC 0.0 Neutrophils Relative 55.9 Lymphocytes Relative 33.7 Monocytes Relative 8.8 Eosinophils Relative 0.8 Basophils Relative 0.6 Immature Grans % 0.2 Neutrophils Absolute 2.8 Lymphocytes Absolute 1.7 Monocytes Absolute 0.4 Eosinophils Absolute 0.0 Basophils Absolute 0.0 Immature Grans Absolute 0.0 COMPREHENSIVE METABOLIC PANEL - Abnormal SODIUM 137 POTASSIUM 3.6 CHLORIDE 103 CARBON DIOXIDE 19 (*) ANION GAP 15 (*) UREA NITROGEN 5 (*) CREATININE 0.63 (*) GLUCOSE 113 (*) CALCIUM 9.2 AST (SGOT) 179 (*) ALT 118 (*) ALKALINE PHOSPHATASE 191 (*) ALBUMIN 3.9 BILIRUBIN, TOTAL 1.3 (*) TOTAL PROTEIN 7.8 eGFR >90.0 LIPASE - Abnormal LIPASE 127 (*) All other labs were within normal range or not returned as of this dictation. EMERGENCY DEPARTMENT COURSE and DIFFERENTIAL DIAGNOSIS/MDM: Vitals: Vitals: 05/07/24 1623 05/07/24 1627 05/07/24 1650 05/07/24 1812 BP: (!) 169/106 (!) 144/99 (!) 142/107 Pulse: 84 84 Resp: 16 16 Temp: 36.3 C (97.4 F) TempSrc: Temporal SpO2: 98% 97% Weight: 113 kg (250 lb) Height: 1.854 m (6' 1) EMERGENCY DEPARTMENT COURSE and DIFFERENTIAL DIAGNOSIS/MDM: Vitals: Vitals: 05/07/24 1623 05/07/24 1627 05/07/24 1650 05/07/24 1812 BP: (!) 169/106 (!) 144/99 (!) 142/107 Pulse: 84 84 Resp: 16 16 Temp: 36.3 C (97.4 F) TempSrc: Temporal SpO2: 98% 97% Weight: 113 kg (250 lb) Height: 1.854 m (6' 1) The patient presented with a chief complaint of upper abdominal pain nausea. States he had a small amount of hematemesis yesterday. No vomiting today, symptoms of nausea were well-controlled with Zofran today however he states he took his last tablet. Patient continues to drink alcohol, recent admission earlier this month with alcohol induced pancreatitis. Pain in the upper abdomen is mild. No fevers or chills.. The differential diagnosis associated with this patient's presentation includes pancreatitis, gastritis, gastric ulcer, gallbladder pathology. Our workup consisted of ordering/reviewing lab work again showing signs of dehydration as well as mild pancreatitis with a lipase of 127. Similarly elevated AST and ALT and T. bili as in the past. No leukocytosis. Low suspicion for gallbladder pathology, CT scan shows inflammation around the pancreas consistent with mild pancreatitis. Patient's vital signs are otherwise stable. Feeling symptomatically improved after fluids Zofran and Protonix. Possibly a mild Leatha-Fang tear yesterday versus ulcer, patient is not having any black or tarry stool so low suspicion for significant bleed with no symptoms of bleeding today and hemoglobin which is 13.8 and improved from prior. Patient states he is out of Zofran and Protonix so I did provide a prescription for each. Will give a short course of analgesics as well at home and recommend alcohol cessation. Patient understands agreeable to treatment plan. All questions answered. Aki munguia discharged. Diagnoses as of 05/07/241814 Alcohol-induced acute pancreatitis without infection or necrosis Diagnostic tests considered but not performed: External records reviewed: Inpatient notes discharge summary reviewed from 04/20/2024 or the patient was admitted for pancreatitis, alcohol abuse, was detoxed during last admission Diagnostics interpreted by me: Discussions with other clinicians: Chronic conditions impacting care: Hypertension Social determinants of health affecting care: Alcoholism ED Medications managed: Medications ketorolac (Toradol) injection 15 mg (15 mg IntraVENous Given 05/07/241653) ondansetron (Zofran) injection 4 mg (4 mg IntraVENous Given 05/07/241653) sodium chloride 0.9 % bolus 1,000 mL (0 mL IntraVENous Stopped 3/29/25 1755) pantoprazole (ProtoNix) 40 mg in sodium chloride (PF) 0.9 % 10 mL injection (40 mg IntraVENous Given 05/07/24 1656) lidocaine (Xylocaine) 2 % mouth solution 5 mL (5 mL Mouth/Throat Given 05/07/24 180) And aluminum & magnesium hydroxide-simethicone (Mylanta) 200-200-20 MG/5ML oral suspension 20 mL (20 mL Oral Given 05/07/241806) CONSULTS: None PROCEDURES: Unless otherwise noted below, none Procedures Patients symptoms are consistent with sepsis, severe sepsis, or septic shock (If yes use .sepsiscoremeasure): FINAL IMPRESSION 1. Alcohol-induced acute pancreatitis without infection or necrosis DISPOSITION/PLAN dc PATIENT REFERRED TO: Tam Hughes DO [address] [place] [address] Schedule an appointment as soon as possible for a visit in 3 days DISCHARGE MEDICATIONS: Discharge Medication List as of 05/07/2024 6:03 PM START taking these medications Details ondansetron ODT (Zofran-ODT) 4 MG disintegrating tablet Take 1 tablet (4 mg) by mouth every 8 hoursas needed for nausea or vomiting for up to 7 days., Starting 05/07/2024, Until 05/14/2024 at 2359, Normal oxyCODONE (Roxicodone) 5 MG immediate release tablet Take 1 tablet (5 mg) by mouth every 6 hours asneeded for severe pain (7-10) for up to 3 days., Starting 05/07/2024, Until Tu05/10/2024 at 2359, Normal !! pantoprazole (ProtoNix) 40 MG EC tablet Take 1 tablet (40 mg) by mouth every morning (before breakfast). Do not crush, chew, or split., Starting 05/07/2024, Until 06/06/2024, Normal !! - Potential duplicate medications found. Please discuss with provider. (Comment: Please note this report has been produced using speech recognition software and may contain errors related to that system including errors in grammar, punctuation, and spelling, as well as words and phrases that may be inappropriate. If there are any questions or concerns please feel freeto contact the dictating provider for clarification.) Markie Lyons DO (electronically signed) Emergency Medicine Provider Markie Lyons DO 05/07/241817 documented in this [facility]03-29-2025 Physician Emergency department Note* Markie Lyons DO - 05/07/2024 4:18 PM EDT EMERGENCY DEPARTMENT ENCOUNTER Pt Name: Roro Valdivia Birthdate 1985 Date of evaluation: 05/07/2024 ED Provider: Markie Lyons DO CHIEF COMPLAINT Chief Complaint Patient presents with Vomiting Pt states he vomited the past 2 days, but none diarrhea. States he had some blood in his emesis. [place] of vomiting.Decreased appetite HISTORY OF PRESENT ILLNESS (Location/Symptom, Timing/Onset, Context/Setting, Quality, Duration, Modifying Factors, Severity) Note limiting factors. I wore appropriate PPE for the entirety of this encounter. HPI Roro Valdivia is a 38 y.o. male who presents to the emergency department nausea vomiting and upper abdominal discomfort. States he was admitted earlier this month with alcohol induced pancreatitis.States he was detoxed during the admission as well with Ativan. States he takes a few sips of alcohol every morning to help his Tourette's syndrome. States 3 days ago he noticed more right upper quadrant abdominal pain rather than the typical pancreatitis epigastric pain. Had some vomiting yesterday with a small amount of bright red blood in that. Has not had any vomiting today, symptoms are well-controlled with Zofran Tylenol and Motrin which she has been taking for the pain. Denies any other f sriram or chills. Nursing Notes were reviewed. REVIEW OF SYSTEMS 14 systems reviewed and otherwise acutely negative except as in the [place]. 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/HCC) (HCC) Alcohol abuse Alcohol withdrawal syndrome without complication (HCC) 06/27/2022 Alcohol withdrawal with inpatient treatment, uncomplicated (HCC) 03/15/2022 GERD (gastroesophageal reflux disease) History of pancreatitis 01/07/2023 Hypertension Pancreatitis Seizures (HCC) SVT (supraventricular tachycardia) (HCC) Tourette syndrome SURGICAL HISTORY Past Surgical History: Procedure Laterality Date APPENDECTOMY CURRENT MEDICATIONS Discharge Medication List as of 05/07/2024 6:03 PM CONTINUE these medications which have NOT CHANGED Details calcium carbonate (Tums) 500 MG chewable tablet Chew 1 tablet (500 mg) 3 times daily as needed for heartburn., Starting Thu04/20/2024, Until Thu04/20/2025 at 2359, Normal cloNIDine (Catapres) 0.1 MG tablet Take 0.1 mg by mouth 2 times daily., Historical Med doxylamine (Unisom) 25 MG tablet Take 1 tablet (25 mg) by mouth Nightly as needed for sleep., Starting Thu03/30/2024, Until Thu04/29/2024 at 2359, Normal folic acid (Folvite) 1 MG tablet Take 1 tablet (1 mg) by mouth daily., Starting Thu04/07/2024, Until Thu04/07/2025, Normal hydrOXYzine HCl (Atarax) 50 MG tablet Take 1 tablet (50 mg) by mouth every 8 hours as needed for itching., Starting Thu03/30/2024, Until Thu04/29/2024 at 2359, Normal metoprolol succinate XL (Toprol-XL) 50 MG 24 hr tablet Take 1 tablet (50 mg) by mouth daily. Do notcrush or chew., Starting Thu03/30/2024, Until Thu03/30/2025, Normal !! pantoprazole (ProtoNix) 40 MG EC tablet Take 1 tablet (40 mg) by mouth 2 times daily (before meals). Do not crush, chew, or split., Starting Thu12/17/2023, Until Thu12/16/2024, Normal risperiDONE (RisperDAL) 1 MG tablet Take 1 tablet (1 mg) by mouth 2 times daily., Starting Thu04/26/2024, Until Thu04/26/2025, Normal senna-docusate sodium (Senokot-S) 8.6-50 MG tablet Take 2 tablets by mouth daily., Starting Thu04/21/2024, Until Thu04/21/2025, Normal thiamine (Vitamin B1) 100 MG tablet Take 1 tablet (100 mg) by mouth daily., Starting Thu04/07/2024,Normal venlafaxine XR (Effexor XR) 75 MG 24 hr capsule Take 1 capsule (75 mg) by mouth daily (with breakfast). Do not crush or chew., Starting 02/17/2024, Until 04/17/2024, Normal !! - Potential duplicate medications found. Please discuss with provider. ALLERGIES Patient has no known allergies. FAMILY HISTORY Family History Problem Relation Name Age of Onset No Known Problems Mother No Known Problems Father SOCIAL HISTORY Social History Socioeconomic History Marital status: Single Tobacco Use Smoking status: Every Day Current packs/day: 1.00 Types: Cigarettes Smokeless tobacco: Never Vaping Use Vaping status: Never Used Substance and Sexual Activity Alcohol use: Yes Comment: 2/5 vodka daily Drug use: Not Currently Types: Cocaine, Methamphetamines, Oxycodone, Fentanyl, Heroin, Benzodiazepines Sexual activity: Not Currently Social Drivers of Health Financial Resource Strain: Low Risk (02/05/2024) Overall Financial Resource Strain (CARDIA) Difficulty of Paying Living Expenses: Not hard at all Recent Concern: Financial Resource Strain - Medium Risk (12/14/2023) Overall Financial Resource Strain (CARDIA) Difficulty of Paying Living Expenses: Somewhat hard Food Insecurity: No Food Insecurity (04/20/2024) Hunger Vital Sign Worried About Running Out of Food in the Last Year: Never true Ran Out of Food in the Last Year: Never true Transportation Needs: No Transportation Needs (04/20/2024) PRAPARE - Transportation Lack of Transportation (Medical): No Lack of Transportation (Non-Medical): No Physical Activity: Inactive (02/05/2024) Exercise Vital Sign Days of Exercise per Week: 0 days Minutes of Exercise per Session: 0 min Stress: Stress Concern Present (02/05/2024) [employer] - Occupational Stress Questionnaire Feeling of Stress : To some extent Social Connections: Socially Isolated (02/05/2024) Social Connection and Isolation Panel [NHANES] Frequency of Communication with Friends and Family: More than three times a week Frequency of Social Gatherings with Friends and Family: More than three times a week Attends [employer] Services: Never Active Member of Clubs or Organizations: No Attends Club or Organization Meetings: Never Marital Status: Never Intimate Partner Violence: Not At Risk (04/20/2024) Humiliation, Afraid, Rape, and Kick questionnaire Fear of Current or Ex-Partner: No Emotionally Abused: No Physically Abused: No Sexually Abused: No Housing Stability: Low Risk (04/20/2024) Housing Stability Vital Sign Unable to Pay for Housing in the Last Year: No Number of Times Moved in the Last Year: 0 Homeless in the Last Year: No Recent Concern: Housing Stability - High Risk (02/05/2024) Housing Stability Vital Sign Unable to Pay for Housing in the Last Year: Patient unable to answer Number of Times Moved in the Last Year: 0 Homeless in the Last Year: Yes SCREENINGS PHYSICAL EXAM ED Triage Vitals [05/07/24 1627] Temp Heart Rate Resp BP 36.3 C (97.4 F) 84 16 (!) 169/106 SpO2 Temp Source Heart Rate Source Patient Position 98 % Temporal Monitor -- BP Location FiO2 (%) -- -- CONSTITUTIONAL: AOx4, no apparent distress, appears stated age HEAD: normocephalic, atraumatic EYES: PERRL, EOMI ENT: Dry mucous membranes, uvula midline NECK: supple, symmetric BACK: symmetric LUNGS: clear to auscultation bilaterally CARDIOVASCULAR: regular rate and rhythm ABDOMEN: soft, mild epigastric tenderness to palpation, non-distended with normal active bowel sounds : deferred NEUROLOGIC: MAEx4, no focal sensory or motor deficits MUSCULOSKELETAL: no clubbing, cyanosis or edema SKIN: no exposed rash DIAGNOSTIC RESULTS Procedures/EKG: EKG was reviewed by myself. Physician EKG interpretation can be found in [facility] RADIOLOGY (Per Emergency Physician): Interpretation per the Radiologist below, if available at the time of this note: CT abdomen pelvis wo IV contrast Final Result 1. Findings compatible with pancreatitis, similar to comparison. Correlation with appropriate laboratory values and follow-up suggested. 2. Hepatosplenomegaly, and hepatic steatosis. Report Dictated on Electronically Signed By: Paul Plata MD Electronically Signed Date/Time: 05/07/2024 5:37 PM EDT ED BEDSIDE ULTRASOUND: Performed by ED Physician - none LABS: Labs Reviewed CBC WITH AUTO DIFFERENTIAL - Abnormal Result Value Auto WBC 5.0 RBC 4.55 Hemoglobin 13.8 Hematocrit 40.9 MCV 89.9 MCH 30.3 MCHC 33.7 RDW 15.6 (*) Platelets 170 MPV 10.2 nRBC 0.0 Neutrophils Relative 55.9 Lymphocytes Relative 33.7 Monocytes Relative 8.8 Eosinophils Relative 0.8 Basophils Relative 0.6 Immature Grans % 0.2 Neutrophils Absolute 2.8 Lymphocytes Absolute 1.7 Monocytes Absolute 0.4 Eosinophils Absolute 0.0 Basophils Absolute 0.0 Immature Grans Absolute 0.0 COMPREHENSIVE METABOLIC PANEL - Abnormal SODIUM 137 POTASSIUM 3.6 CHLORIDE 103 CARBON DIOXIDE 19 (*) ANION GAP 15 (*) UREA NITROGEN 5 (*) CREATININE 0.63 (*) GLUCOSE 113 (*) CALCIUM 9.2 AST (SGOT) 179 (*) ALT 118 (*) ALKALINE PHOSPHATASE 191 (*) ALBUMIN 3.9 BILIRUBIN, TOTAL 1.3 (*) TOTAL PROTEIN 7.8 eGFR >90.0 LIPASE - Abnormal LIPASE 127 (*) All other labs were within normal range or not returned as of this dictation. EMERGENCY DEPARTMENT COURSE and DIFFERENTIAL DIAGNOSIS/MDM: Vitals: Vitals: 05/07/24 1623 05/07/24 1627 05/07/24 1650 05/07/24 1812 BP: (!) 169/106 (!) 144/99 (!) 142/107 Pulse: 84 84 Resp: 16 16 Temp: 36.3 C (97.4 F) TempSrc: Temporal SpO2: 98% 97% Weight: 113 kg (250 lb) Height: 1.854 m (6' 1) EMERGENCY DEPARTMENT COURSE and DIFFERENTIAL DIAGNOSIS/MDM: Vitals: Vitals: 05/07/24 1623 05/07/24 1627 05/07/24 1650 05/07/24 1812 BP: (!) 169/106 (!) 144/99 (!) 142/107 Pulse: 84 84 Resp: 16 16 Temp: 36.3 C (97.4 F) TempSrc: Temporal SpO2: 98% 97% Weight: 113 kg (250 lb) Height: 1.854 m (6' 1) The patient presented with a chief complaint of upper abdominal pain nausea. States he had a small amount of hematemesis yesterday. No vomiting today, symptoms of nausea were well-controlled with Zofran today however he states he took his last tablet. Patient continues to drink alcohol, recent admission earlier this month with alcohol induced pancreatitis. Pain in the upper abdomen is mild. No fevers or chills.. The differential diagnosis associated with this patient's presentation includes pancreatitis, gastritis, gastric ulcer, gallbladder pathology. Our workup consisted of ordering/reviewing lab work again showing signs of dehydration as well as mild pancreatitis with a lipase of 127. Similarly elevated AST and ALT and T. bili as in the past. No leukocytosis. Low suspicion for gallbladder pathology, CT scan shows inflammation around the pancreas consistent with mild pancreatitis. Patient's vital signs are otherwise stable. Feeling symptomatically improved after fluids Zofran and Protonix. Possibly a mild Leatha-Fang tear yesterday versus ulcer, patient is not having any black or tarry stool so low suspicion for significant bleed with no symptoms of bleeding today and hemoglobin which is 13.8 and improved from prior. Patient states he is out of Zofran and Protonix so I did provide a prescription for each. Will give a short course of analgesics as well at home and recommend alcohol cessation. Patient understands agreeable to treatment plan. All questions answered. Aki munguia discharged. Diagnoses as of 05/07/241814 Alcohol-induced acute pancreatitis without infection or necrosis Diagnostic tests considered but not performed: External records reviewed: Inpatient notes discharge summary reviewed from 04/20/2024 or the patient was admitted for pancreatitis, alcohol abuse, was detoxed during last admission Diagnostics interpreted by me: Discussions with other clinicians: Chronic conditions impacting care: Hypertension Social determinants of health affecting care: Alcoholism ED Medications managed: Medications ketorolac (Toradol) injection 15 mg (15 mg IntraVENous Given 05/07/24 1654) ondansetron (Zofran) injection 4 mg (4 mg IntraVENous Given 05/07/24 1654) sodium chloride 0.9 % bolus 1,000 mL (0 mL IntraVENous Stopped 05/07/24 1755) pantoprazole (ProtoNix) 40 mg in sodium chloride (PF) 0.9 % 10 mL injection (40 mg IntraVENous Given 05/07/24 1656) lidocaine (Xylocaine) 2 % mouth solution 5 mL (5 mL Mouth/Throat Given 05/07/24 1807) And aluminum & magnesium hydroxide-simethicone (Mylanta) 200-200-20 MG/5ML oral suspension 20 mL (20 mL Oral Given 05/07/24 1807) CONSULTS: None PROCEDURES: Unless otherwise noted below, none Procedures Patients symptoms are consistent with sepsis, severe sepsis, or septic shock (If yes use .sepsiscoremeasure): FINAL IMPRESSION 1. Alcohol-induced acute pancreatitis without infection or necrosis DISPOSITION/PLAN dc PATIENT REFERRED TO: Tam Hughes DO [address] [place] [address] Schedule an appointment as soon as possible for a visit in 3 days DISCHARGE MEDICATIONS: Discharge Medication List as of 05/07/2024 6:03 PM START taking these medications Details ondansetron ODT (Zofran-ODT) 4 MG disintegrating tablet Take 1 tablet (4 mg) by mouth every 8 hoursas needed for nausea or vomiting for up to 7 days., Starting 05/07/2024, Until 05/14/2024 at 2359, Normal oxyCODONE (Roxicodone) 5 MG immediate release tablet Take 1 tablet (5 mg) by mouth every 6 hours asneeded for severe pain (7-10) for up to 3 days., Starting 05/07/2024, Until 05/10/2024 at 2359, Normal !! pantoprazole (ProtoNix) 40 MG EC tablet Take 1 tablet (40 mg) by mouth every morning (before breakfast). Do not crush, chew, or split., Starting 05/07/2024, Until 06/06/2024, Normal !! - Potential duplicate medications found. Please discuss with provider. (Comment: Please note this report has been produced using speech recognition software and may contain errors related to that system including errors in grammar, punctuation, and spelling, as well as words and phrases that may be inappropriate. If there are any questions or concerns please feel freeto contact the dictating provider for clarification.) Markie Lyons DO (electronically signed) Emergency Medicine Provider Markie Lyons DO 05/07/248 [id number] Telephone encounter Note* Telephone Encounter - Roma Mckenzie RN - 04/26/2024 2:16 PM EDT This [facility] RN called patient for follow up, voicemail received, message left. [id number] Miscellaneous Notes* Telephone Encounter - Roma Mckenzie RN - 04/26/2024 2:16 PM EDT This [facility] RN called patient for follow up, voicemail received, message left. documented in this [address]15-2025 Telephone encounter Note* Telephone Encounter - Roma Mckenzie RN - 04/23/2024 12:42 PM EDT This [facility] RN called patient for follow up phone call, voicemail received, message left. [id number] Miscellaneous Notes* Telephone Encounter - Roma Mckenzie RN - 04/23/2024 12:42 PM EDT This [facility] RN called patient for follow up phone call, voicemail received, message left. documented in this [place] [id number] Telephone encounter Note* Telephone Encounter - Seema Sumner LPN - 04/22/2024 9:22 AM EDT Unable to contact patient X2 [id number] Miscellaneous Notes* Telephone Encounter - Seema Sumner LPN - 04/22/2024 9:22 AM EDT Unable to contact patient X2 * Telephone Encounter - Seema Sumner LPN - 04/21/2024 1:13 PM EDT S: Patient admitted to: [facility] 04/16/24 B: Discharged on : 04/20/24 A: Hospital follow up call initiated to discuss any medication changes, follow up appointments and discharge instructions: Acute recurrent pancreatitis R: No contact x 1 at : [phone] documented in this [facility]SD[facility] HospitalIygrpu23-28-1415 Telephone encounter Note* Telephone Encounter - Seema Sumner LPN - 04/21/2024 1:13 PM EDT S: Patient admitted to: [facility] 04/16/24 B: Discharged on : 04/20/24 A: Hospital follow up call initiated to discuss any medication changes, follow up appointments and discharge instructions: Acute recurrent pancreatitis R: No contact x 1 at : [phone] [facility] [id number] Nurse Note* Jake Blair RN - 04/20/2024 2:17 PM EDT Discharge instructions reviewed with patient. Patient did not have any further concerns at this time. [id number] Nurse Note* Jake Blair RN - 04/20/2024 2:17 PM EDT Discharge instructions reviewed with patient. Patient did not have any further concerns at this time. * Nevaeh Cortes RN - 04/19/2024 8:25 PM EDT Pt c/o pAIN IN ABD AND RATES AT 09/18. Pt medicated with dilaudid 0.5mg IV per PRN order. Pt reportsmedication effective * Juany Rich RN - 04/18/2024 12:21 PM EDT This [facility] RN saw patient on consult to provide MARTHA treatment resources. Described role, purpose of visit, and patient agreed to speak with me. States he drinks a pint or more of alcohol daily to control panic attacks. He denies IV use. Sometimes smokes or snorts Methamphetamine when drinking. He states history of opiate use but not recently. Surprised to find fentanyl positive this admission. Endorses buying a Xanax off the street to help with almost daily panic attacks. Discussed pressed pills and potential harm. Began drinking age 16 and was/is problematic. Has recurrent pancreatitis from alcohol with 8 plus admissions since 2023. Has withdrawal symptoms and cravings. Sees psychiatry forPTSD, panic attacks, anxiety, and depression and states he is not getting relief, so he uses alcohol. He refuses residential care and was at [facility] in the past. Patient is interested in Behavioral Health IOP. We reviewed the handout, and I circled the phone number. States he is willing to go 3 x week. Either staff or patient can call [phone] to schedule after discharge date is confirmed. Roro is an established patient at [facility] and agreeable to follow up. documented in this [facility]03-12-2025 Note* Care Coordination - VANITA Whitaker - 04/20/2024 1:14 PM EDT Social work follow up. 30 day readmission completed with the patient. Patients chart flagging as mother being HCPOA- patient reports she is emergency contact only- chart updated. No HCPOA found on media tab. Patient not interested in completing at this time. Social work did complete SDOH questions with the patient for housing, transport, food, partner violence and utilities. No issues noted at this time. Patient also advised the phone number for IOP will be in his discharge packet and patient has been encouraged to call to set up appt. [facility] [id number] Note* Care Coordination - VANITA Whitaker - 04/20/2024 1:14 PM EDT Social work follow up. 30 day readmission completed with the patient. Patients chart flagging as mother being HCPOA- patient reports she is emergency contact only- chart updated. No HCPOA found on media tab. Patient not interested in completing at this time. Social work did complete SDOH questions with the patient for housing, transport, food, partner violence and utilities. No issues noted at this time. Patient also advised the phone number for IOP will be in his discharge packet and patient has been encouraged to call to set up appt. [facility] [id number] Miscellaneous Notes* Care Coordination - VANITA Whitaker - 04/20/2024 1:14 PM EDT Social work follow up. 30 day readmission completed with the patient. Patients chart flagging as mother being HCPOA- patient reports she is emergency contact only- chart updated. No HCPOA found on media tab. Patient not interested in completing at this time. Social work did complete SDOH questions with the patient for housing, transport, food, partner violence and utilities. No issues noted at this time. Patient also advised the phone number for IOP will be in his discharge packet and patient has been encouraged to call to set up appt. * Care Coordination - Meron Landry RN - 04/18/2024 2:16 PM EDT PT HERE FOR ALCOHOL DETOX, + COVID. CURRENTLY ON RA. PO PHENOBARB TAPER. ADDICTION MED FOLLOWING. ANTICIPATE DISCHARGE TO HOME WITH MOM AND NO NEEDS. * Care Coordination - VANITA Whitaker - 04/18/2024 10:10 AM EDT Social work review of chart. Patient being followed by addiction medicine. On admission- patient wanting detox. Social work has requested for addition home care giver consult to provide patient withresources. Social work will continue to follow. documented in this [facility]03-12-2025 Hospital Discharge instructions* Discharge Instructions* Louis Alexandre MD - 04/20/2024 10:57 AM EDT Please call [phone] to schedule appointment for the [facility] IOP program in [place] documented in this [address]12-2025 History of Present illness Narrative* Louis Alexandre MD - 04/20/2024 10:53 AM EDT Images from the original note were not included. Addiction Medicine Patient: Roro Valdivia Admit Date: 04/16/2024 Primary Care Physician: Tam Hughes DO History of Present Illness Diagnosis: Alcohol dependence/withdrawal the patient continues to be monitored by chemical dependency services. As of this morning he was receiving phenobarbital 16.2 mg every 4 hours for residual alcohol withdrawal symptomatology. He denied any withdrawal symptomatology today including anxiety, sweats, tremors, restlessness. Inquired about possible discharge. Social History Socioeconomic History Marital status: Single Spouse name: Not on file Number of children: Not on file Years of education: Not on file Highest education level: Not on file Occupational History Not on file Tobacco Use Smoking status: Every Day Current packs/day: 1.00 Types: Cigarettes Smokeless tobacco: Never Vaping Use Vaping status: Never Used Substance and Sexual Activity Alcohol use: Yes Comment: 03/16 vodka daily Drug use: Not Currently Types: Cocaine, Methamphetamines, Oxycodone, Fentanyl, Heroin, Benzodiazepines Sexual activity: Not Currently Other Topics Concern Not on file Social History Narrative Not on file Social Drivers of Health Financial Resource Strain: Low Risk (02/05/2024) Overall Financial Resource Strain (CARDIA) Difficulty of Paying Living Expenses: Not hard at all Recent Concern: Financial Resource Strain - Medium Risk (12/14/2023) Overall Financial Resource Strain (CARDIA) Difficulty of Paying Living Expenses: Somewhat hard Food Insecurity: No Food Insecurity (04/04/2024) Hunger Vital Sign Worried About Running Out of Food in the Last Year: Never true Ran Out of Food in the Last Year: Never true Transportation Needs: No Transportation Needs (04/04/2024) PRAPARE - Transportation Lack of Transportation (Medical): No Lack of Transportation (Non-Medical): No Physical Activity: Inactive (02/05/2024) Exercise Vital Sign Days of Exercise per Week: 0 days Minutes of Exercise per Session: 0 min Stress: Stress Concern Present (02/05/2024) [employer] - Occupational Stress Questionnaire Feeling of Stress : To some extent Social Connections: Socially Isolated (02/05/2024) Social Connection and Isolation Panel [NHANES] Frequency of Communication with Friends and Family: More than three times a week Frequency of Social Gatherings with Friends and Family: More than three times a week Attends [employer] Services: Never Active Member of Clubs or Organizations: No Attends Club or Organization Meetings: Never Marital Status: Never Intimate Partner Violence: Not At Risk (04/16/2024) Humiliation, Afraid, Rape, and Kick questionnaire Fear of Current or Ex-Partner: No Emotionally Abused: No Physically Abused: No Sexually Abused: No Housing Stability: Low Risk (04/04/2024) Housing Stability Vital Sign Unable to Pay for Housing in the Last Year: No Number of Times Moved in the Last Year: 0 Homeless in the Last Year: No Recent Concern: Housing Stability - High Risk (02/05/2024) Housing Stability Vital Sign Unable to Pay for Housing in the Last Year: Patient unable to answer Number of Times Moved in the Last Year: 0 Homeless in the Last Year: Yes Past Medical History: Diagnosis Date Addiction to drug (CMS/HCC) (HCC) Alcohol abuse Alcohol withdrawal syndrome without complication (HCC) 06/27/2022 Alcohol withdrawal with inpatient treatment, uncomplicated (HCC) 03/15/2022 GERD (gastroesophageal reflux disease) History of pancreatitis 01/07/2023 Hypertension Pancreatitis Seizures (HCC) SVT (supraventricular tachycardia) (HCC) Tourette syndrome Past Surgical History: Procedure Laterality Date APPENDECTOMY Family History Problem Relation Name Age of Onset No Known Problems Mother No Known Problems Father Labs Recent Results (from the past 48 hours) CBC Collection Time: 04/19/24 1:04 AM Result Value Ref Range Auto WBC 3.9 3.6 - 10.7 10*3/uL RBC 3.97 (L) 4.40 - 5.90 10*6/uL Hemoglobin 11.7 (L) 13.0 - 18.0 g/dL Hematocrit 36.3 (L) 40.0 - 52.0 % MCV 91.4 77.0 - 99.0 fL MCH 29.5 26.0 - 34.0 pg MCHC 32.2 30.5 - 36.0 % RDW 15.6 (H) 11.5 - 15.0 % Platelets 129 (L) 140 - 440 10*3/uL MPV 10.9 9.0 - 12.7 fL IPF 6 Lipase Collection Time: 04/19/24 1:04 AM Result Value Ref Range LIPASE 51 <55 U/L Comprehensive metabolic panel Collection Time: 04/19/24 1:04 AM Result Value Ref Range SODIUM 137 136 - 145 mmol/L POTASSIUM 3.9 3.5 - 5.1 mmol/L CHLORIDE 108 (H) 98 - 107 mmol/L CARBON DIOXIDE 21 (L) 22 - 29 mmol/L ANION GAP 8 3 - 13 mmol/L UREA NITROGEN <3 (L) 8 - 21 mg/dL CREATININE 0.58 (L) 0.72 - 1.25 mg/dL GLUCOSE 81 74 - 100 mg/dL CALCIUM 8.5 8.4 - 10.2 mg/dL AST (SGOT) 142 (H) <34 U/L ALT 80 (H) <40 U/L ALKALINE PHOSPHATASE 148 40 - 150 U/L ALBUMIN 3.0 (L) 3.5 - 5.0 g/dL BILIRUBIN, TOTAL 1.5 (H) <1.2 mg/dL TOTAL PROTEIN 6.0 (L) 6.4 - 8.3 g/dL eGFR >90.0 >60.0 mL/min/1.73m*2 Comprehensive metabolic panel Collection Time: 04/20/24 1:29 AM Result Value Ref Range SODIUM 136 136 - 145 mmol/L POTASSIUM 3.8 3.5 - 5.1 mmol/L CHLORIDE 107 98 - 107 mmol/L CARBON DIOXIDE 21 (L) 22 - 29 mmol/L ANION GAP 8 3 - 13 mmol/L UREA NITROGEN 3 (L) 8 - 21 mg/dL CREATININE 0.61 (L) 0.72 - 1.25 mg/dL GLUCOSE 111 (H) 74 - 100 mg/dL CALCIUM 9.0 8.4 - 10.2 mg/dL AST (SGOT) 162 (H) <34 U/L ALT 83 (H) <40 U/L ALKALINE PHOSPHATASE 167 (H) 40 - 150 U/L ALBUMIN 3.2 (L) 3.5 - 5.0 g/dL BILIRUBIN, TOTAL 1.5 (H) <1.2 mg/dL TOTAL PROTEIN 6.5 6.4 - 8.3 g/dL eGFR >90.0 >60.0 mL/min/1.73m*2 CBC Collection Time: 04/20/24 1:29 AM Result Value Ref Range Auto WBC 4.8 3.6 - 10.7 10*3/uL RBC 4.25 (L) 4.40 - 5.90 10*6/uL Hemoglobin 12.7 (L) 13.0 - 18.0 g/dL Hematocrit 38.8 (L) 40.0 - 52.0 % MCV 91.3 77.0 - 99.0 fL MCH 29.9 26.0 - 34.0 pg MCHC 32.7 30.5 - 36.0 % RDW 15.5 (H) 11.5 - 15.0 % Platelets 129 (L) 140 - 440 10*3/uL MPV 10.9 9.0 - 12.7 fL IPF 8 Medications Home Meds: Prior to Admission medications Medication Sig Start Date End Date Taking? Authorizing Provider metoprolol succinate XL (Toprol-XL) 50 MG 24 hr tablet Take 1 tablet (50 mg) by mouth daily. Do notcrush or chew. 03/30/24 03/30/25 Yes Nikky Escobar MD risperiDONE (RisperDAL) 0.5 MG tablet Take 2 tablets (1 mg) by mouth 2 times daily. 03/30/24 04/29/24Yes Nikky Escobar MD venlafaxine XR (Effexor XR) 75 MG 24 hr capsule Take 1 capsule (75 mg) by mouth daily (with breakfast). Do not crush or chew. 02/17/24 04/17/24 Yes Nikky Escobar MD cloNIDine (Catapres) 0.1 MG tablet Take 0.1 mg by mouth 2 times daily. Girish Tadeo MD doxylamine (Unisom) 25 MG tablet Take 1 tablet (25 mg) by mouth Nightly as needed for sleep. 03/30/24 04/29/24 Nikky Escobar MD folic acid (Folvite) 1 MG tablet Take 1 tablet (1 mg) by mouth daily. 04/07/24 04/07/25 Paulino Shelton MD hydrOXYzine HCl (Atarax) 50 MG tablet Take 1 tablet (50 mg) by mouth every 8 hours as needed for itching. 03/30/24 04/29/24 Nikky Escobar MD pantoprazole (ProtoNix) 40 MG EC tablet Take 1 tablet (40 mg) by mouth 2 times daily (before meals). Do not crush, chew, or split. 12/17/23 12/16/24 Maxwell Esposito MD thiamine (Vitamin B1) 100 MG tablet Take 1 tablet (100 mg) by mouth daily. 04/07/24 Paulino Shelton MD Inpatient Scheduled Meds: cloNIDine, 0.1 mg, Oral, BID folic acid, 1 mg, Oral, Daily metoprolol succinate XL, 50 mg, Oral, Daily pantoprazole, 40 mg, Oral, BID AC PHENobarbital, 16.2 mg, Oral, Q4H risperiDONE, 1 mg, Oral, BID senna-docusate sodium, 2 tablet, Oral, Daily thiamine, 100 mg, Oral, Daily venlafaxine XR, 75 mg, Oral, Daily with breakfast Inpatient PRN Meds: PRN medications: acetaminophen OR acetaminophen, albuterol, gabapentin, guaiFENesin-dextromethorphan, HYDROmorphone, hydrOXYzine pamoate, LORazepam OR LORazepam OR LORazepam OR LORazepam OR LORazepam OR LORazepam OR LORazepam OR LORazepam, LORazepam, naloxone, ondansetron, oxyCODONE OR oxyCODONE, potassium chloride CR Exam Vitals: 04/19/24 1746 04/19/24 2138 04/19/24 2140 04/20/24 0457 BP: 136/95 116/71 116/71 129/83 BP Location: Right arm Patient Position: Sitting Pulse: 60 64 62 Resp: 20 16 Temp: 36.1 C (97 F) 36.6 C (97.8 F) TempSrc: Temporal Temporal SpO2: 97% 97% Weight: Height: Physical Exam Patient resting comfortably in bed. He is not flushed or diaphoretic. No overt tremors. Oriented x 4. No auditory, tactile or visual disturbances Assessment & Plan Diagnosis: Alcohol dependence Patient stable from a detox perspective. Phenobarbital discontinued. Patient will be provided number for the [facility] program to schedule appointment for IOP Louis Alexandre MD Addiction Medicine 04/20/2024 at 10:53 AM --50-- minutes were spent reviewing the patient's records, evaluating the patient, entering orders,coordinating care with the treatment team, and creating a progress note. Narrative portions of the note are written utilizing [employer] Virtual software. While every effort is made todictate clearly and proofread, errors in the dictation may still occur. If there are any questions regarding the dictation please do not hesitate to contact the author. * Ron Fonseca, JOSÉ ANTONIO - COREMAKER MACHINE - 04/19/2024 11:09 AM EDT Addiction Medicine Progress Note Patient: Roro Valdivia Chief Complaint Patient presents with Alcohol Problem Pt presents with wanting detox from meth (last use yesterday), fentanyl (unknown last use), ETOH (last use right before signing in.) Pt states that he uses everything IV and isn't going to last much longer. Denies any SI/HI/hallucinations. Reports hx of withdraw sz and drinks 1 gallon of 80 proof liquor daily. Reports abdominal pain stating I think I have pancreatitis. GCS 15; breathing is even and unlabored on room air. Gait is steady. Unknown falls. Addiction Problem Abdominal Pain Problem List: Principal Problem: Acute recurrent pancreatitis Subjective Interim History: Patient was lying in bed. Denies symptoms of withdrawal. Although, patient wiping forehead. However, withdrawal symptoms are improving. No other physical complaints voiced. Did not require PRN ativanovernight. Positive signs and/or symptoms of withdrawal observed. No events overnight documented. Objective Review of Systems: All ROS was completed and was negative unless stated above Physical Exam: Vitals: 04/18/24 0522 04/18/24 0540 04/18/24 1649 04/19/24 0504 BP: 140/90 144/93 131/81 130/76 BP Location: Left arm Patient Position: Sitting Pulse: 81 68 76 56 Resp: 20 17 21 16 Temp: 36.3 C (97.4 F) 36.1 C (96.9 F) 36.8 C (98.2 F) 36.6 C (97.8 F) TempSrc: Temporal Temporal Temporal Temporal SpO2: 94% 94% 97% 97% Weight: Height: Physical Exam Vitals and nursing note reviewed. Constitutional: Appearance: He is diaphoretic. Cardiovascular: Rate and Rhythm: Normal rate. Pulmonary: Effort: Pulmonary effort is normal. Abdominal: General: There is no distension. Skin: Coloration: Skin is not pale. Neurological: Mental Status: He is alert and oriented to person, place, and time. Psychiatric: Mood and Affect: Affect is flat. Behavior: Behavior normal. Thought Content: Thought content normal. Judgment: Judgment normal. Medications: cloNIDine, 0.1 mg, Oral, BID folic acid, 1 mg, Oral, Daily metoprolol succinate XL, 50 mg, Oral, Daily pantoprazole, 40 mg, Oral, BID AC PHENobarbital, 32.4 mg, Oral, Q4H Followed by [START ON 04/20/2024] PHENobarbital, 16.2 mg, Oral, Q4H risperiDONE, 1 mg, Oral, BID thiamine, 100 mg, Oral, Daily venlafaxine XR, 75 mg, Oral, Daily with breakfast PRN medications: acetaminophen OR acetaminophen, albuterol, gabapentin, guaiFENesin-dextromethorphan, HYDROmorphone, hydrOXYzine pamoate, LORazepam OR LORazepam OR LORazepam OR LORazepam OR LORazepam OR LORazepam OR LORazepam OR LORazepam, LORazepam, naloxone, ondansetron, potassium chloride CR Labs: Last 24 hours: Recent Results (from the past 24 hours) CBC Collection Time: 04/19/24 1:04 AM Result Value Ref Range Auto WBC 3.9 3.6 - 10.7 10*3/uL RBC 3.97 (L) 4.40 - 5.90 10*6/uL Hemoglobin 11.7 (L) 13.0 - 18.0 g/dL Hematocrit 36.3 (L) 40.0 - 52.0 % MCV 91.4 77.0 - 99.0 fL MCH 29.5 26.0 - 34.0 pg MCHC 32.2 30.5 - 36.0 % RDW 15.6 (H) 11.5 - 15.0 % Platelets 129 (L) 140 - 440 10*3/uL MPV 10.9 9.0 - 12.7 fL IPF 6 Lipase Collection Time: 04/19/24 1:04 AM Result Value Ref Range LIPASE 51 <55 U/L Comprehensive metabolic panel Collection Time: 04/19/24 1:04 AM Result Value Ref Range SODIUM 137 136 - 145 mmol/L POTASSIUM 3.9 3.5 - 5.1 mmol/L CHLORIDE 108 (H) 98 - 107 mmol/L CARBON DIOXIDE 21 (L) 22 - 29 mmol/L ANION GAP 8 3 - 13 mmol/L UREA NITROGEN <3 (L) 8 - 21 mg/dL CREATININE 0.58 (L) 0.72 - 1.25 mg/dL GLUCOSE 81 74 - 100 mg/dL CALCIUM 8.5 8.4 - 10.2 mg/dL AST (SGOT) 142 (H) <34 U/L ALT 80 (H) <40 U/L ALKALINE PHOSPHATASE 148 40 - 150 U/L ALBUMIN 3.0 (L) 3.5 - 5.0 g/dL BILIRUBIN, TOTAL 1.5 (H) <1.2 mg/dL TOTAL PROTEIN 6.0 (L) 6.4 - 8.3 g/dL eGFR >90.0 >60.0 mL/min/1.73m*2 Assessment & Plan Stimulant use disorder Alcohol use disorder Counseled patient on biopsychosocial consequences of substance use. Encouraged professional chemical dependency treatment. Encouraged 12 step meeting attendance. Addiction treatment plan with patient: Patient interested in IOP, he spoke with [facility] to facilitate an appointments Alcohol withdrawal Last use of alcohol was on 04/16/2024. Phenobarbital taper to manage alcohol withdrawal symptoms. 32 mg q 4 hours for today. Adjunct thiamine/folic acid CI W A scores per unit protocol. PRN medications for withdrawal symptom management added. Stimulant withdrawal Not going through any withdrawal symptoms Denies any drug-induced psychosis, paranoia, delusion, SI/HI/AVH CINA scores per unit protocol PRN medications for withdrawal symptoms management added MDD RODRIGUEZ Tourette's Acute pancreatitis COVID-19 Per primary team Disposition: Detox anticipated in 1-2 days. This is pending: Resolution of withdrawal symptoms. Medical stabilization. Labs/tests/tasks to review: None. Nurse Ob recommendations: None. Remaining medical management per primary team. Will follow. JOSÉ ANTONIO Jiménez CNP Addiction Medicine 04/19/2024 at 11:09 AM Note: Narrative portions of note written using [employer] Virtual dictation software. Efforts are made to dictate clearly and proofread but errors in dictation still may occur. Please reach out to author with any clarifying questions. * Nevaeh Howard DO - 04/19/2024 9:49 AM EDT Hospitalist Progress Note 04/19/2024 Subjective: Admit Date: 04/16/2024 PCP: Tam Hughes DO Room#: [id number] A BRIEF HOSPITAL COURSE: Per previous hospitalist's note: Roro is a 38 y.o. male with past medical history IVDU, daily EtOH use with recurrent pancreatitis,HTN, GERD, prior seizures seizures unspecified presents for for detoxification from EtOH, methamphetamine. Patient reporting daily consumption of 1 bottle/fifth of liquor daily. Patient has been admitted multiple times over the past 6 months for similar concern. Patient requesting detox as he reports concern for his overall health-notes increased anxiety/agitation. Elevation of hepatic enzymes above baseline. Lipase increased at 135. Initial lactic acid at 4.0. WBCs WNL at 7.5. Respiratory panel (+) COVID. UDS showing positive for amphetamine, fentanyl. EtOH markedly elevated at 331. Will admit for further evaluation and management. CT compatible with pancreatitis. ADM evaluated and patient on phenobarb taper. LFTS down trending. Interval History: Patient seen and examined. Chart reviewed. No overnight issues. Abdominal pain continues but improved. Dull constant ache that is mild-moderate. +occasional nausea. Denies fever, chills, emesis, CP, dyspnea. Case and plan discussed with patient and bedside nurse. All questions answered. Adult diet Regular 24HR INTAKE/OUTPUT: No intake or output data in the 24 hours ending 04/19/24 0950 Past Medical History: Past Medical History: Diagnosis Date Addiction to drug ([facility]/HCC) (HCC) Alcohol abuse Alcohol withdrawal syndrome without complication ([facility]) 06/27/2022 Alcohol withdrawal with inpatient treatment, uncomplicated ([facility]) 03/15/2022 GERD (gastroesophageal reflux disease) History of pancreatitis 01/07/2023 Hypertension Pancreatitis Seizures ([facility]) SVT (supraventricular tachycardia) ([facility]) Tourette syndrome LABS: CBC: Recent Labs 04/17/2433804/18/2452604/19/24 010 WBC 4.2 3.4* 3.9 RBC 4.06* 4.08* 3.97* HGB 11.9* 11.8* 11.7* HCT 37.4* 37.8* 36.3* MCV 92.1 92.6 91.4 RDW 16.3* 15.9* 15.6* PLT 155 133* 129* BMP: Recent Labs 04/17/2433804/18/2452604/19/24 0104 NA 142 138 137 K 3.7 3.8 3.9 CL 108* 108* 108* CO2 21* 22 21* BUN 5* 3* <3* CREATININE 0.61* 0.54* 0.58* GLUCOSE 89 101* 81 CALCIUM 7.8* 8.5 8.5 ANIONGAP 13 8 8 LIVER PROFILE: Recent Labs 04/17/24 0339 04/18/24 0527 04/19/24 0104 AST 387* 163* 142* ALT 117* 95* 80* BILITOT 1.0 1.7* 1.5* ALKPHOS 172* 145 148 PROT 6.2* 5.9* 6.0* PT/INR: No results for input(s): PROTIME, INR in the last 72 hours. CARDIAC ENZYMES: No results for input(s): TROPONINI in the last 72 hours. Procalcitonin: No results found for: PROCAL COVID-19 PCR: No results for input(s): COVID19 in the last 72 hours. Objective: Vitals: BP 130/76 Pulse 56 Temp 36.6 C (97.8 F) (Temporal) Resp 16 Ht 6' 1 (1.854 m) Wt 245 lb (111 kg) SpO2 97% BMI 32.32 kg/m Pulse Ox: SpO2 Av % Min: 97 % Max: 97 % Supplemental O2: Physical Exam Constitutional: Appearance: He is obese. Comments: +tired-appearing HENT: Head: Normocephalic and atraumatic. Mouth/Throat: Mouth: Mucous membranes are moist. Eyes: Extraocular Movements: Extraocular movements intact. Conjunctiva/sclera: Conjunctivae normal. Cardiovascular: Rate and Rhythm: Normal rate and regular rhythm. Pulses: Normal pulses. Heart sounds: Normal heart sounds. Pulmonary: Effort: Pulmonary effort is normal. No respiratory distress. Breath sounds: Normal breath sounds. Abdominal: General: Bowel sounds are normal. There is no distension. Palpations: Abdomen is soft. Tenderness: There is abdominal tenderness (TTP in epigastric area). Musculoskeletal: General: No swelling or tenderness. Skin: General: Skin is warm and dry. Neurological: General: No focal deficit present. Mental Status: He is alert and oriented to person, place, and time. Psychiatric: Mood and Affect: Mood normal. Judgment: Judgment normal. Medications: Scheduled PRN cloNIDine, 0.1 mg, Oral, BID folic acid, 1 mg, Oral, Daily metoprolol succinate XL, 50 mg, Oral, Daily pantoprazole, 40 mg, Oral, BID AC PHENobarbital, 32.4 mg, Oral, Q4H Followed by [START ON 04/20/2024] PHENobarbital, 16.2 mg, Oral, Q4H risperiDONE, 1 mg, Oral, BID thiamine, 100 mg, Oral, Daily venlafaxine XR, 75 mg, Oral, Daily with breakfast PRN medications: acetaminophen OR acetaminophen, albuterol, gabapentin, guaiFENesin-dextromethorphan, HYDROmorphone, hydrOXYzine pamoate, LORazepam OR LORazepam OR LORazepam OR LORazepam OR LORazepam OR LORazepam OR LORazepam OR LORazepam, LORazepam, naloxone, ondansetron, potassium chloride CR Continuous Assessment Plan EtOH use disorder Transaminitis - severe - undergoing detox - addiction med recommending 1-2 more days of detox - on phenobarb - prn ativan based on CIWA Acute pancreatitis - due to EtOH abuse - symptomatically improving - prn oxycodone and IV dilaudid for breakthrough pain COVID-19 - asymptomatic and no hypoxia - no steroids or remdesivir Polysubstance abuse HTN - continue metoprolol and clonidine Hx of SVT GERD - PPI Constipation - scheduled Senokot S Advance Directive: Full Code Anticipated Discharge - Date - DC home 04/20 Extended Emergency Contact Information Primary Emergency Contact: MigdaliaSummer erazo Mobile Relation: Mother Nevaeh Adrian Howard DO Division of Hospitalist Medicine Acute care [facility] * Summer Gómez - 04/18/2024 9:34 AM EDT Nutrition rescreen completed. Chart reviewed. Patient's diet advanced, monitor tolerance to diet. Patient to be monitored and followed by the diet copier field service technician. Dietitian available upon request. RALPH Everett * Gokul Sood DO - 04/18/2024 9:08 AM EDT Hospitalist Progress Note 04/18/2024 Subjective: Admit Date: 04/16/2024 PCP: Tam Hughes DO Room#: [id number] A BRIEF HOSPITAL COURSE: Roro is a 38 y.o. male with past medical history IVDU, daily EtOH use with recurrent pancreatitis, HTN, GERD, prior seizures seizures unspecified presents for for detoxification from EtOH, methamphetamine. Patient reporting daily consumption of 1 bottle/fifth of liquor daily. Patient has been admitted multiple times over the past 6 months for similar concern. Patient requesting detox as he reports concern for his overall health-notes increased anxiety/agitation. P Elevation of hepatic enzymes above baseline. Lipase increased at 135. Initial lactic acid at 4.0. WBCs WNL at 7.5. Respiratory panel (+)COVID. UDS showing positive for amphetamine, fentanyl. EtOH markedly elevated at 331. Will admit for further evaluation and management. CT compatible with pancreatitis. ADM evaluated and patient on phenobarb taper. LFTS down trending. Interval History: Seen at bedside. Abd pain has improved. Pt is tolerating PO. Recommended AA to patient. Adult diet Regular 24HR INTAKE/OUTPUT: Intake/Output Summary (Last 24 hours) at 04/18/2024 0908 Last data filed at 04/17/2024 1816 Gross per 24 hour Intake 1030.42 ml Output -- Net 1030.42 ml Past Medical History: Past Medical History: Diagnosis Date Addiction to drug ([facility]/HCC) (HCC) Alcohol abuse Alcohol withdrawal syndrome without complication ([facility]) 06/27/2022 Alcohol withdrawal with inpatient treatment, uncomplicated ([facility]) 03/15/2022 GERD (gastroesophageal reflux disease) History of pancreatitis 01/07/2023 Hypertension Pancreatitis Seizures ([facility]) SVT (supraventricular tachycardia) ([facility]) Tourette syndrome LABS: CBC: Recent Labs 04/16/24 1823 04/17/24 0339 04/18/24 0527 WBC 7.5 4.2 3.4* RBC 5.07 4.06* 4.08* HGB 14.9 11.9* 11.8* HCT 45.4 37.4* 37.8* MCV 89.5 92.1 92.6 RDW 16.7* 16.3* 15.9* PLT 311 155 133* BMP: Recent Labs 04/16/24 1823 04/17/24 0339 04/18/24 05 NA 141 142 138 K 3.8 3.7 3.8 CL 103 108* 108* CO2 22 21* 22 BUN 6* 5* 3* CREATININE 0.76 0.61* 0.54* GLUCOSE 151* 89 101* CALCIUM 8.8 7.8* 8.5 ANIONGAP 16* 13 8 LIVER PROFILE: Recent Labs 04/16/24 1823 04/17/2433804/18/24526 AST 635* 387* 163* ALT 197* 117* 95* BILITOT 1.3* 1.0 1.7* ALKPHOS 234* 172* 145 PROT 8.1 6.2* 5.9* PT/INR: No results for input(s): PROTIME, INR in the last 72 hours. CARDIAC ENZYMES: No results for input(s): TROPONINI in the last 72 hours. Procalcitonin: No results found for: PROCAL COVID-19 PCR: No results for input(s): COVID19 in the last 72 hours. Objective: Vitals: BP 144/93 Pulse 68 Temp 36.1 C (96.9 F) (Temporal) Resp 17 Ht 6' 1 (1.854 m) Wt 245 lb (111 kg) SpO2 94% BMI 32.32 kg/m Pulse Ox: SpO2 Av.3 % Min: 94 % Max: 95 % Supplemental O2: Physical Exam Constitutional: Appearance: Normal appearance. HENT: Head: Normocephalic. Nose: Nose normal. Mouth/Throat: Mouth: Mucous membranes are moist. Eyes: Extraocular Movements: Extraocular movements intact. Cardiovascular: Rate and Rhythm: Normal rate and regular rhythm. Pulmonary: Effort: Pulmonary effort is normal. Breath sounds: Normal breath sounds. Abdominal: General: Abdomen is flat. Tenderness: There is abdominal tenderness (epigastric). Musculoskeletal: General: Normal range of motion. Right lower leg: No edema. Left lower leg: No edema. Skin: General: Skin is warm. Neurological: General: No focal deficit present. Mental Status: He is alert and oriented to person, place, and time. Psychiatric: Mood and Affect: Mood normal. Behavior: Behavior normal. Medications: Scheduled PRN cloNIDine, 0.1 mg, Oral, BID folic acid, 1 mg, Oral, Daily metoprolol succinate XL, 50 mg, Oral, Daily pantoprazole, 40 mg, Oral, BID AC PHENobarbital, 97.2 mg, Oral, Q4H Followed by PHENobarbital, 64.8 mg, Oral, Q4H Followed by [START ON 04/19/2024] PHENobarbital, 32.4 mg, Oral, Q4H Followed by [START ON 04/20/2024] PHENobarbital, 16.2 mg, Oral, Q4H risperiDONE, 1 mg, Oral, BID thiamine, 100 mg, Oral, Daily venlafaxine XR, 75 mg, Oral, Daily with breakfast PRN medications: acetaminophen OR acetaminophen, albuterol, gabapentin, guaiFENesin-dextromethorphan, HYDROmorphone, hydrOXYzine pamoate, LORazepam OR LORazepam OR LORazepam OR LORazepam OR LORazepam OR LORazepam OR LORazepam OR LORazepam, LORazepam, naloxone, ondansetron, potassium chloride CR Continuous sodium chloride, 100 mL/hr, Last Rate: 100 mL/hr (04/18/24 0522) Assessment Data: (CAT1) Reviewed 3 or more notes from different specialty or health system (each=1). (LOW: 2x CAT1 or independent historian MOD: 3x CAT1 or 1x CAT3 EXTENSIVE: 3x CAT1 and 1x CAT3) Acute, acute on chronic, unstable/uncontrolled chronic problems/diagnoses: Alcohol use disorder Amphetamine + Fentanyl + COVID19 + Elevate lfts: down trending Pancreatitis 2/2 alcohol use Stable chronic problems affecting care, new non-acute diagnoses: Hx SVT Hx HTN GERD Plan As a result of the above findings & factors, the following mgmt was pursued: - ADM consulted for detox on phenobarb - pt has advanced diet - ok to stop fluids - am labs, replace lytes prn - PT/OT/CM/SW - delirium precautions: increase activity - DVT prophylaxis: encourage ambulation Complexity: Acute illness or injury posing a threat to life or body function (HIGH). Risk: Admission to hospital-level care was considered or occurred (HIGH). Advance Directive: Full Code Anticipated Discharge - Date - 04/19-04/20 - Location - home - Pending the following - detox Total time spent (which include face to face and non face to face encounters) : 40 minutes Extended Emergency Contact Information Primary Emergency Contact: Summer Valdivia Mobile Relation: Mother Gokul Infante DO [place] Division of Hospitalist Medicine [facility] * Ron Fonseca, CARDIOTHORACIC ICU RN - [employer]ACHINE - 04/18/2024 8:20 AM EDT Addiction Medicine Progress Note Patient: Roro Valdivia Chief Complaint Patient presents with Alcohol Problem Pt presents with wanting detox from meth (last use yesterday), fentanyl (unknown last use), ETOH (last use right before signing in.) Pt states that he uses everything IV and isn't going to last much longer. Denies any SI/HI/hallucinations. Reports hx of withdraw sz and drinks 1 gallon of 80 proof liquor daily. Reports abdominal pain stating I think I have pancreatitis. GCS 15; breathing is even and unlabored on room air. Gait is steady. Unknown falls. Addiction Problem Abdominal Pain Problem List: Principal Problem: Acute recurrent pancreatitis Subjective Interim History: Patient was lying in bed. Endorses symptoms of withdrawal including diaphoresis at night. Overall, withdrawal symptoms are improving. No other physical complaints voiced. Did not require PRN medicineovernight. Positive signs and/or symptoms of withdrawal observed. No events overnight documented. Objective Review of Systems: All ROS was completed and was negative unless stated above Physical Exam: Vitals: 04/17/24 0519 04/17/24 1756 04/18/24 0522 04/18/24 0540 BP: 128/81 133/82 140/90 144/93 BP Location: Left arm Patient Position: Lying Pulse: 99 70 81 68 Resp: 20 18 20 17 Temp: 36.9 C (98.4 F) 36.3 C (97.4 F) 36.3 C (97.4 F) 36.1 C (96.9 F) TempSrc: Temporal Temporal Temporal Temporal SpO2: 93% 95% 94% 94% Weight: Height: Physical Exam Vitals and nursing note reviewed. Constitutional: Appearance: He is diaphoretic. HENT: Mouth/Throat: Mouth: Mucous membranes are dry. Cardiovascular: Rate and Rhythm: Normal rate. Pulmonary: Effort: Pulmonary effort is normal. Abdominal: General: There is no distension. Skin: Coloration: Skin is not pale. Neurological: Mental Status: He is alert and oriented to person, place, and time. Psychiatric: Mood and Affect: Mood is anxious. Affect is flat. Behavior: Behavior normal. Thought Content: Thought content normal. Judgment: Judgment normal. Medications: cloNIDine, 0.1 mg, Oral, BID folic acid, 1 mg, Oral, Daily metoprolol succinate XL, 50 mg, Oral, Daily pantoprazole, 40 mg, Oral, BID AC PHENobarbital, 97.2 mg, Oral, Q4H Followed by PHENobarbital, 64.8 mg, Oral, Q4H Followed by [START ON 04/19/2024] PHENobarbital, 32.4 mg, Oral, Q4H Followed by [START ON 04/20/2024] PHENobarbital, 16.2 mg, Oral, Q4H risperiDONE, 1 mg, Oral, BID thiamine, 100 mg, Oral, Daily venlafaxine XR, 75 mg, Oral, Daily with breakfast PRN medications: acetaminophen OR acetaminophen, albuterol, gabapentin, guaiFENesin-dextromethorphan, HYDROmorphone, hydrOXYzine pamoate, LORazepam OR LORazepam OR LORazepam OR LORazepam OR LORazepam OR LORazepam OR LORazepam OR LORazepam, LORazepam, naloxone, ondansetron, potassium chloride CR Labs: Last 24 hours: Recent Results (from the past 24 hours) CBC Collection Time: 04/18/24 5:27 AM Result Value Ref Range Auto WBC 3.4 (L) 3.6 - 10.7 10*3/uL RBC 4.08 (L) 4.40 - 5.90 10*6/uL Hemoglobin 11.8 (L) 13.0 - 18.0 g/dL Hematocrit 37.8 (L) 40.0 - 52.0 % MCV 92.6 77.0 - 99.0 fL MCH 28.9 26.0 - 34.0 pg MCHC 31.2 30.5 - 36.0 % RDW 15.9 (H) 11.5 - 15.0 % Platelets 133 (L) 140 - 440 10*3/uL MPV 10.1 9.0 - 12.7 fL Lipase Collection Time: 04/18/24 5:27 AM Result Value Ref Range LIPASE 66 (H) <55 U/L Comprehensive metabolic panel Collection Time: 04/18/24 5:27 AM Result Value Ref Range SODIUM 138 136 - 145 mmol/L POTASSIUM 3.8 3.5 - 5.1 mmol/L CHLORIDE 108 (H) 98 - 107 mmol/L CARBON DIOXIDE 22 22 - 29 mmol/L ANION GAP 8 3 - 13 mmol/L UREA NITROGEN 3 (L) 8 - 21 mg/dL CREATININE 0.54 (L) 0.72 - 1.25 mg/dL GLUCOSE 101 (H) 74 - 100 mg/dL CALCIUM 8.5 8.4 - 10.2 mg/dL AST (SGOT) 163 (H) <34 U/L ALT 95 (H) <40 U/L ALKALINE PHOSPHATASE 145 40 - 150 U/L ALBUMIN 3.0 (L) 3.5 - 5.0 g/dL BILIRUBIN, TOTAL 1.7 (H) <1.2 mg/dL TOTAL PROTEIN 5.9 (L) 6.4 - 8.3 g/dL eGFR >90.0 >60.0 mL/min/1.73m*2 Assessment & Plan Stimulant use disorder Alcohol use disorder Counseled patient on biopsychosocial consequences of substance use. Encouraged professional chemical dependency treatment. Encouraged 12 step meeting attendance. Addiction treatment plan with patient: Patient would benefit from residential treatment, however patient tends to resume drinking once discharged. Alcohol withdrawal Last use of alcohol was on 04/16/2024. Phenobarbital taper to manage alcohol withdrawal symptoms. 65 mg q 4 hours for today. Adjunct thiamine/folic acid CI W A scores per unit protocol. PRN medications for withdrawal symptom management added. Stimulant withdrawal Not going through any withdrawal symptoms Denies any drug-induced psychosis, paranoia, delusion, SI/HI/AVH CINA scores per unit protocol PRN medications for withdrawal symptoms management added MDD RODRIGUEZ Tourette's Acute pancreatitis COVID-19 Per primary team Disposition: Detox anticipated in 2-3 days. This is pending: Resolution of withdrawal symptoms. Medical stabilization. Labs/tests/tasks to review: None. Nurse Ob recommendations: None. Remaining medical management per primary team. Will follow. JOSÉ ANTONIO Jiménez CNP Addiction Medicine 04/18/2024 at 8:20 AM Note: Narrative portions of note written using [employer] Virtual dictation software. Efforts are made to dictate clearly and proofread but errors in dictation still may occur. Please reach out to author with any clarifying questions. * Gokul [place], - 04/17/2024 9:28 AM EDT Hospitalist Progress Note 04/17/2024 Subjective: Admit Date: 04/16/2024 PCP: Tam Hughes DO Room#: [id number] A BRIEF HOSPITAL COURSE: Roro is a 38 y.o. male with past medical history IVDU, daily EtOH use with recurrent pancreatitis, HTN, GERD, prior seizures seizures unspecified presents for for detoxification from EtOH, methamphetamine. Patient reporting daily consumption of 1 bottle/fifth of liquor daily. Review of prior documentation notes patient has been admitted multiple times over the past 6 months for similar concern. Patient requesting detox as he reports concern for his overall health-notes increased anxiety/agitation. Patient reporting sharp, stabbing epigastric pain. BUN/creat WNL at 6/0.76. Anion gap initially elevated at 16. Glucose of 151. Elevation of hepatic enzymes above baseline. Lipase increased at 135. Initial lactic acid at 4.0. WBCs WNL at 7.5. Respiratory panel (+) COVID. Vital signs note mild hypertension-SBP in 140s. Heart rate 103 bpm. Patient has mildly elevated temp but no fever at 99.9. SpO2 in mid to upper 90s on room air. UDS showing positive for amphetamine, fentanyl. EtOH markedly elevated at 331. Will admit for further evaluation and management. -During physical assessment patient denies shortness of breath, cough or any other respiratory symptoms. No fever/chills. Patient states he would not even have known he had COVID if we had not testedfor it. -After discussion with patient, reviewed treatment plan to which he indicated understanding. Duringdiscussion with floor RN later in evening, she informed me that patient was ambivalent/unsure if hestill wanted to undergo detox. Will continue with addiction medicine specialty assessment -CT abdomen/pelvis 1. Findings compatible with pancreatitis, mildly increased in the interval. Correlation with appropriate laboratory values and follow-up suggested. 2. Hepatomegaly and hepatic steatosis. Interval History: Seen at bedside. Endorses abdominal pain. No overnight issues. Case and plan discussed with patientand bedside nurse. All questions answered. Adult diet Clear liquid 24HR INTAKE/OUTPUT: Intake/Output Summary (Last 24 hours) at 04/17/2024 0928 Last data filed at 04/17/2024 0735 Gross per 24 hour Intake 756.25 ml Output -- Net 756.25 ml Past Medical History: Past Medical History: Diagnosis Date Addiction to drug (CMS/HCC) (HCC) Alcohol abuse Alcohol withdrawal syndrome without complication (HCC) 06/27/2022 Alcohol withdrawal with inpatient treatment, uncomplicated (HCC) 03/15/2022 GERD (gastroesophageal reflux disease) History of pancreatitis 01/07/2023 Hypertension Pancreatitis Seizures (HCC) SVT (supraventricular tachycardia) (HCC) Tourette syndrome LABS: CBC: Recent Labs 04/16/24182204/17/24 0339 WBC 7.5 4.2 RBC 5.07 4.06* HGB 14.9 11.9* HCT 45.4 37.4* MCV 89.5 92.1 RDW 16.7* 16.3* PLT 311 155 BMP: Recent Labs 04/16/24182204/17/24 0339 NA 141 142 K 3.8 3.7 CL 103 108* CO2 22 21* BUN 6* 5* CREATININE 0.76 0.61* GLUCOSE 151* 89 CALCIUM 8.8 7.8* ANIONGAP 16* 13 LIVER PROFILE: Recent Labs 04/16/24182204/17/24 0339 AST 635* 387* ALT 197* 117* BILITOT 1.3* 1.0 ALKPHOS 234* 172* PROT 8.1 6.2* PT/INR: No results for input(s): PROTIME, INR in the last 72 hours. CARDIAC ENZYMES: No results for input(s): TROPONINI in the last 72 hours. Procalcitonin: No results found for: PROCAL COVID-19 PCR: No results for input(s): COVID19 in the last 72 hours. Objective: Vitals: BP 128/81 Pulse 99 Temp 36.9 C (98.4 F) (Temporal) Resp 20 Ht 6' 1 (1.854 m) Wt 245 lb (111 kg) SpO2 93% BMI 32.32 kg/m Pulse Ox: SpO2 Av.8 % Min: 93 % Max: 98 % Supplemental O2: Physical Exam Constitutional: Appearance: Normal appearance. HENT: Head: Normocephalic. Nose: Nose normal. Mouth/Throat: Mouth: Mucous membranes are moist. Eyes: Extraocular Movements: Extraocular movements intact. Cardiovascular: Rate and Rhythm: Normal rate and regular rhythm. Pulmonary: Effort: Pulmonary effort is normal. Breath sounds: Normal breath sounds. Abdominal: General: Abdomen is flat. Tenderness: There is abdominal tenderness (epigastric). Musculoskeletal: General: Normal range of motion. Right lower leg: No edema. Left lower leg: No edema. Skin: General: Skin is warm. Neurological: General: No focal deficit present. Mental Status: He is alert and oriented to person, place, and time. Psychiatric: Mood and Affect: Mood normal. Behavior: Behavior normal. Medications: Scheduled PRN cloNIDine, 0.1 mg, Oral, BID folic acid, 1 mg, Oral, Daily metoprolol succinate XL, 50 mg, Oral, Daily pantoprazole, 40 mg, Oral, BID AC risperiDONE, 1 mg, Oral, BID thiamine, 100 mg, Oral, Daily venlafaxine XR, 75 mg, Oral, Daily with breakfast PRN medications: acetaminophen OR acetaminophen, albuterol, gabapentin, guaiFENesin-dextromethorphan, HYDROmorphone, hydrOXYzine pamoate, LORazepam OR LORazepam OR LORazepam OR LORazepam OR LORazepam OR LORazepam OR LORazepam OR LORazepam, LORazepam, naloxone, ondansetron, potassium chloride CR Continuous sodium chloride, 75 mL/hr, Last Rate: 75 mL/hr (04/17/24 5492) Assessment Data: (CAT1) Reviewed 3 or more notes from different specialty or health system (each=1). (LOW: 2x CAT1 or independent historian MOD: 3x CAT1 or 1x CAT3 EXTENSIVE: 3x CAT1 and 1x CAT3) Acute, acute on chronic, unstable/uncontrolled chronic problems/diagnoses: Alcohol use disorder Amphetamine + Fentanyl + COVID19 + Elevate lfts: down trending Pancreatitis 2/2 alcohol use Stable chronic problems affecting care, new non-acute diagnoses: Hx SVT Hx HTN GERD Plan As a result of the above findings & factors, the following mgmt was pursued: - ADM consulted for detox and started on phenobarb - continue fluids - full liquids advance as tolerated - am labs, replace lytes prn - PT/OT/CM/SW - delirium precautions: increase activity - DVT prophylaxis: encourage ambulation Complexity: Acute illness or injury posing a threat to life or body function (HIGH). Risk: Admission to hospital-level care was considered or occurred (HIGH). Advance Directive: Full Code Anticipated Discharge - Date - 04/19-04/20 - Location - home - Pending the following - detox Total time spent (which include face to face and non face to face encounters) : 40 minutes Extended Emergency Contact Information Primary Emergency Contact: Frandy Valdiviaine Mobile Relation: Mother Gokul Sood DO Division of Hospitalist Medicine [facility] documented in this [facility]03-12-2025 Hospital course Narrative* Nevaeh Howard DO - 04/20/2024 8:52 AM EDT Discharge Summary Hospitalist Discharge Summary Roro Valdivia : 1985 Admit date: 04/16/2024 Discharge date: 04/20/2024 Admitting Physician: Ant Carty MD Primary Care Physician: Tam Hughes DO Visit Status: Inpatient Code Status: Full Code BRIEF HOSPITAL COURSE: This is a 38 yo M with polysubstance abuse including IVDU, EtOH abuse, recurrent pancreatitis, HTN,GERD, EtOH withdrawal related seizures who presented with lactic acidosis, elevated lipase, elevated EtOH level, and CT abd/pelvis consistent with acute pancreatitis. Addiction medicine was consultedand pain control as well as IV fluids. The patient slowly improved over the course of days. He symptomatically improved and was discharged home in optimized condition. EtOH use disorder Transaminitis - severe - addiction med states finished detox - on phenobarb - prn ativan based on CIWA Acute pancreatitis - due to EtOH abuse - symptomatically improving - prn oxycodone and IV dilaudid for breakthrough pain COVID-19 - asymptomatic and no hypoxia - no steroids or remdesivir Polysubstance abuse HTN - continue metoprolol and clonidine Hx of SVT GERD - PPI Constipation - scheduled Senokot S Past Medical History: Diagnosis Date Addiction to drug ([facility]/HCC) (HCC) Alcohol abuse Alcohol withdrawal syndrome without complication ([facility]) 06/27/2022 Alcohol withdrawal with inpatient treatment, uncomplicated ([facility]) 03/15/2022 GERD (gastroesophageal reflux disease) History of pancreatitis 01/07/2023 Hypertension Pancreatitis Seizures ([facility]) SVT (supraventricular tachycardia) ([facility]) Tourette syndrome Procedures: None Hospital Course: See above. See discharge diagnoses list above and medication adjustments below in med rec.The patient is discharged in improved and stable condition. Consults: IP CONSULT TO ADDICTION MEDICINE IP CONSULT TO ADDICTION [employer] Discharge Instructions: Diet: Dietary Orders (From admission, onward) Start Ordered 04/17/24 184 Adult diet Regular Diet effective now Question: Diet type Answer: Regular 04/17/24 1839 Activity: as tolerated Recommended Outpatient Tests: Disposition: Patient discharged in stable condition to Home. Greater than 31 minutes spent discharging the patient and coming up with patient discharge plan. Vitals: BP 129/83 Pulse 62 Temp 36.6 C (97.8 F) (Temporal) Resp 16 Ht 6' 1 (1.854 m) Wt 245 lb (111 kg) SpO2 97% BMI 32.32 kg/m Pulse Ox: SpO2 Av % Min: 97 % Max: 97 % Supplemental O2: Physical Exam Constitutional: Appearance: He is obese. He is not ill-appearing. Comments: +disheveled appearance HENT: Head: Normocephalic and atraumatic. Mouth/Throat: Mouth: Mucous membranes are moist. Eyes: Extraocular Movements: Extraocular movements intact. Conjunctiva/sclera: Conjunctivae normal. Cardiovascular: Rate and Rhythm: Normal rate and regular rhythm. Pulses: Normal pulses. Heart sounds: Normal heart sounds. Pulmonary: Effort: Pulmonary effort is normal. No respiratory distress. Breath sounds: Normal breath sounds. Abdominal: General: Bowel sounds are normal. There is no distension. Palpations: Abdomen is soft. Tenderness: There is abdominal tenderness (mildly TTP in epigastric area). Musculoskeletal: General: No swelling or tenderness. Skin: General: Skin is warm and dry. Neurological: General: No focal deficit present. Mental Status: He is alert and oriented to person, place, and time. Psychiatric: Mood and Affect: Mood normal. Judgment: Judgment normal. LABS: Recent Labs 04/18/2452604/19/2410304/20/24128 NA 138 137 136 K 3.8 3.9 3.8 CL 108* 108* 107 CO2 22 21* 21* BUN 3* <3* 3* CREATININE 0.54* 0.58* 0.61* GLUCOSE 101* 81 111* CALCIUM 8.5 8.5 9.0 Recent Labs 04/18/2452604/19/2410304/20/24128 WBC 3.4* 3.9 4.8 RBC 4.08* 3.97* 4.25* HGB 11.8* 11.7* 12.7* HCT 37.8* 36.3* 38.8* MCV 92.6 91.4 91.3 MCH 28.9 29.5 29.9 MCHC 31.2 32.2 32.7 RDW 15.9* 15.6* 15.5* PLT 133* 129* 129* MPV 10.1 10.9 10.9 Discharge Medications: Medication List START taking these medications acetaminophen 325 MG tablet Commonly known as: Tylenol Take 2 tablets (650 mg) by mouth every 6 hours as needed for mild pain (1-3) (Fever GREATER than 100.4 F (38 C)) for up to 10 days. calcium carbonate 500 MG chewable tablet Commonly known as: Tums Chew 1 tablet (500 mg) 3 times daily as needed for heartburn. senna-docusate sodium 8.6-50 MG tablet Commonly known as: Senokot-S Take 2 tablets by mouth daily. Start taking on: April 21, 2024 CONTINUE taking these medications cloNIDine 0.1 MG tablet Commonly known as: Catapres doxylamine 25 MG tablet Commonly known as: Unisom Take 1 tablet (25 mg) by mouth Nightly as needed for sleep. folic acid 1 MG tablet Commonly known as: Folvite Take 1 tablet (1 mg) by mouth daily. hydrOXYzine HCl 50 MG tablet Commonly known as: Atarax Take 1 tablet (50 mg) by mouth every 8 hours as needed for itching. metoprolol succinate XL 50 MG 24 hr tablet Commonly known as: Toprol-XL Take 1 tablet (50 mg) by mouth daily. Do not crush or chew. pantoprazole 40 MG EC tablet Commonly known as: ProtoNix Take 1 tablet (40 mg) by mouth 2 times daily (before meals). Do not crush, chew, or split. risperiDONE 0.5 MG tablet Commonly known as: RisperDAL Take 2 tablets (1 mg) by mouth 2 times daily. thiamine 100 MG tablet Commonly known as: Vitamin B1 Take 1 tablet (100 mg) by mouth daily. venlafaxine XR 75 MG 24 hr capsule Commonly known as: Effexor XR Take 1 capsule (75 mg) by mouth daily (with breakfast). Do not crush or chew. STOP taking these medications oxyCODONE 5 MG immediate release tablet Commonly known as: Roxicodone Where to Get Your Medications These medications were sent to [facility] - [place], [place] - [address] [facility] [address] [place] [place] [address] acetaminophen 325 MG tablet calcium carbonate 500 MG chewable tablet senna-docusate sodium 8.6-50 MG tablet Recommended Follow-up: No follow-up provider specified. Complexity of Follow up: [] Moderate Complexity: follow up within 7-14 calendar days (60206) [x] Severe Complexity: follow up within 7 calendar days (99901) Follow up Testing, Pending results or Referrals at Transitional Care Visit: [] yes [x] no Instructions to MA: Please call patient on day after discharge (must document patient contacted within 2 business days of discharge). Follow up questions for MA: 1. Did you get medications filled and taking them as instructed from discharge? 2. Are you following your discharge instructions from your hospital stay? 3. Please confirm patient is scheduled for a follow up appointment within the above time frame. Signed: Nevaeh Howard DO Division of Hospitalist Medicine [facility] 04/20/2024, 2:12 PM documented in this [facility]03-12-2025 [facility] 04-19-2024 Nurse Note* Nevaeh Cortes RN - 04/19/2024 8:25 PM EDT Pt c/o pAIN IN ABD AND RATES AT 09/18. Pt medicated with dilaudid 0.5mg IV per PRN order. Pt reportsmedication effective [id number]* Care Coordination - Meron Landry RN - 04/18/2024 2:16 PM EDT PT HERE FOR ALCOHOL DETOX, + COVID. CURRENTLY ON RA. PO PHENOBARB TAPER. ADDICTION MED FOLLOWING. ANTICIPATE DISCHARGE TO HOME WITH MOM AND NO NEEDS. [id number] Note* Care Coordination - Meron Landry RN - 04/18/2024 2:16 PM EDT PT HERE FOR ALCOHOL DETOX, + COVID. CURRENTLY ON RA. PO PHENOBARB TAPER. ADDICTION MED FOLLOWING. ANTICIPATE DISCHARGE TO HOME WITH MOM AND NO NEEDS. [id number] Nurse Note* Juany Rich RN - 04/18/2024 12:21 PM EDT This [facility] RN saw patient on consult to provide MARTHA treatment resources. Described role, purpose of visit, and patient agreed to speak with me. States he drinks a pint or more of alcohol daily to control panic attacks. He denies IV use. Sometimes smokes or snorts Methamphetamine when drinking. He states history of opiate use but not recently. Surprised to find fentanyl positive this admission. Endorses buying a Xanax off the street to help with almost daily panic attacks. Discussed pressed pills and potential harm. Began drinking age 16 and was/is problematic. Has recurrent pancreatitis from alcohol with 8 plus admissions since 2023. Has withdrawal symptoms and cravings. Sees psychiatry forPTSD, panic attacks, anxiety, and depression and states he is not getting relief, so he uses alcohol. He refuses residential care and was at [facility] in the past. Patient is interested in Behavioral Health IOP. We reviewed the handout, and I circled the phone number. States he is willing to go 3 x week. Either staff or patient can call [phone] to schedule after discharge date is confirmed. Ernst dey is an established patient at [facility] and agreeable to follow up. [id number] Note* Care Coordination - VANITA Whitaker - 04/18/2024 10:10 AM EDT Social work review of chart. Patient being followed by addiction medicine. On admission- patient wanting detox. Social work has requested for addition home care giver consult to provide patient withresources. Social work will continue to follow. [id number] Note* Care Coordination - VANITA Whitaker - 04/18/2024 10:10 AM EDT Social work review of chart. Patient being followed by addiction medicine. On admission- patient wanting detox. Social work has requested for addition home care giver consult to provide patient withresources. Social work will continue to follow. [id number] Consult note* Stone Ramsey MD - 04/17/2024 12:01 PM EDT Associated Order(s): IP CONSULT TO ADDICTION MEDICINE [facility] Consult service H&P Admit Date: 04/16/2024 Primary Care Physician: Tam Hughes DO ] Chief Complaint Patient presents with Alcohol Problem Pt presents with wanting detox from meth (last use yesterday), fentanyl (unknown last use), ETOH (last use right before signing in.) Pt states that he uses everything IV and isn't going to last much longer. Denies any SI/HI/hallucinations. Reports hx of withdraw sz and drinks 1 gallon of 80 proof liquor daily. Reports abdominal pain stating I think I have pancreatitis. GCS 15; breathing is even and unlabored on room air. Gait is steady. Unknown falls. Addiction Problem Abdominal Pain Substance dependence disorder History of Present Illness Roro Valdivia is a 38 y.o. year old male well-known to addiction medicine department for numerous amount of admissions that required alcohol detox Patient is also known to never follow through with any treatment recommendation Patient started drinking when he was 16 years old became became problematic right away Has a remote history of benzodiazepine and methamphetamine and cocaine use in the past Has a history of fentanyl use in the past Currently he drinks 1 pint per day last drink was before coming to the ER Patient denies any IV drug use Has blackouts related to substance use disorder He does have history of withdrawal seizures Denies any history of DTs Denies any history of overdoses Has been legal consequences due to substance use disorder Patient has extensive psych history with multiple admissions for suicidal attempts He is on Effexor Zyprexa and clonidine He does have childhood trauma with PTSD Upon admission his ethanol level was 331 urine drug screen was positive for amphetamine and fentanyl Substance Use Disorder Criteria 1. Taking substance in larger amounts and/or for longer than intended [x] 2. Wanting to cut down or quit substance use but not being able to [x] 3. Spending a lot of time obtaining the substance [x] 4. Craving or a strong desire to use substance [x] 5. Repeatedly doesn't carry out major obligations due to substance use [x] 6. Using despite recurring social or interpersonal problems caused by substance use [x] 7. Reducing social, occupational, or recreational activities due to substance use [x] 8. Recurrent use of substance in physically hazardous situations [x] 9. Consistent use of substance despite recurrent physical or psychological difficulties [x] 10. Tolerance (increased amounts to achieve intoxication or diminished effect) [x] 11. Withdrawal syndrome or the substance is used to avoid withdrawal [x] 2-3 = mild; 4-5 = moderate; 6 or >6 = severe substance use disorder Remaining History Past Medical History: Diagnosis Date Addiction to drug ([facility]/HCC) ([facility]) Alcohol abuse Alcohol withdrawal syndrome without complication ([facility]) 06/27/2022 Alcohol withdrawal with inpatient treatment, uncomplicated ([facility]) 03/15/2022 GERD (gastroesophageal reflux disease) History of pancreatitis 01/07/2023 Hypertension Pancreatitis Seizures ([facility]) SVT (supraventricular tachycardia) ([facility]) Tourette syndrome Past Surgical History: Procedure Laterality Date APPENDECTOMY Family History Problem Relation Name Age of Onset No Known Problems Mother No Known Problems Father Social History Socioeconomic History Marital status: Single Spouse name: Not on file Number of children: Not on file Years of education: Not on file Highest education level: Not on file Occupational History Not on file Tobacco Use Smoking status: Every Day Current packs/day: 1.00 Types: Cigarettes Smokeless tobacco: Never Vaping Use Vaping status: Never Used Substance and Sexual Activity Alcohol use: Yes Comment: 2/5 vodka daily Drug use: Not Currently Types: Cocaine, Methamphetamines, Oxycodone, Fentanyl, Heroin, Benzodiazepines Sexual activity: Not Currently Other Topics Concern Not on file Social History Narrative Not on file Social Drivers of Health Financial Resource Strain: Low Risk (02/05/2024) Overall Financial Resource Strain (CARDIA) Difficulty of Paying Living Expenses: Not hard at all Recent Concern: Financial Resource Strain - Medium Risk (12/14/2023) Overall Financial Resource Strain (CARDIA) Difficulty of Paying Living Expenses: Somewhat hard Food Insecurity: No Food Insecurity (04/04/2024) Hunger Vital Sign Worried About Running Out of Food in the Last Year: Never true Ran Out of Food in the Last Year: Never true Transportation Needs: No Transportation Needs (04/04/2024) PRAPARE - Transportation Lack of Transportation (Medical): No Lack of Transportation (Non-Medical): No Physical Activity: Inactive (02/05/2024) Exercise Vital Sign Days of Exercise per Week: 0 days Minutes of Exercise per Session: 0 min Stress: Stress Concern Present (02/05/2024) [employer] - Occupational Stress Questionnaire Feeling of Stress : To some extent Social Connections: Socially Isolated (02/05/2024) Social Connection and Isolation Panel [NHANES] Frequency of Communication with Friends and Family: More than three times a week Frequency of Social Gatherings with Friends and Family: More than three times a week Attends [employer] Services: Never Active Member of Clubs or Organizations: No Attends Club or Organization Meetings: Never Marital Status: Never Intimate Partner Violence: Not At Risk (04/16/2024) Humiliation, Afraid, Rape, and Kick questionnaire Fear of Current or Ex-Partner: No Emotionally Abused: No Physically Abused: No Sexually Abused: No Housing Stability: Low Risk (04/04/2024) Housing Stability Vital Sign Unable to Pay for Housing in the Last Year: No Number of Times Moved in the Last Year: 0 Homeless in the Last Year: No Recent Concern: Housing Stability - High Risk (02/05/2024) Housing Stability Vital Sign Unable to Pay for Housing in the Last Year: Patient unable to answer Number of Times Moved in the Last Year: 0 Homeless in the Last Year: Yes Allergies: Patient has no known allergies. Review of Systems Denies suicidal or homicidal ideation denies tactile auditory or visual hallucinations All of systems ROS was completed and was negative unless stated above Physical Exam Vitals: 04/16/24 2325 04/16/24 2327 04/17/24 0058 04/17/24 0519 BP: 142/88 128/81 BP Location: Right arm Pulse: (!) 127 105 99 Resp: 20 20 Temp: 36.9 C (98.5 F) 36.9 C (98.4 F) TempSrc: Temporal Temporal SpO2: 94% 93% 93% Weight: 111 kg (245 lb) Height: 1.854 m (6' 1) General appearance: Cooperative, no distress, appears stated age, non-toxic. Skin: Skin color, temperature, turgor normal. No rashes or lesions. Musculoskeletal: Normal muscle strength and tone in 4 distal extremities. Normal range of motion in4 distal extremities. Psychiatric: Alert and oriented to person, place, and time. Insight: fair. Judgment: fair. Diaphoresis: 0/10 Restlessness: 110 Palmar Erythema 0/10 Tongue Fasciculations: 110 Extremity Tremors: 02/18 Imaging/Labs/Meds @[email or web address]@ Recent Results (from the past 48 hours) CBC auto differential Collection Time: 04/16/24 6:23 PM Result Value Ref Range Auto WBC 7.5 3.6 - 10.7 10*3/uL RBC 5.07 4.40 - 5.90 10*6/uL Hemoglobin 14.9 13.0 - 18.0 g/dL Hematocrit 45.4 40.0 - 52.0 % MCV 89.5 77.0 - 99.0 fL MCH 29.4 26.0 - 34.0 pg MCHC 32.8 30.5 - 36.0 % RDW 16.7 (H) 11.5 - 15.0 % Platelets 311 140 - 440 10*3/uL MPV 9.6 9.0 - 12.7 fL nRBC 0.0 0.0 - 2.0 /100 WBCs Neutrophils Relative 46.4 38.0 - 82.0 % Lymphocytes Relative 47.3 (H) 15.0 - 45.0 % Monocytes Relative 4.1 (L) 5.0 - 13.0 % Eosinophils Relative 1.2 0.0 - 6.0 % Basophils Relative 0.7 0.0 - 2.0 % Immature Grans % 0.3 0.0 - 2.0 % Neutrophils Absolute 3.5 1.8 - 7.5 10*3/uL Lymphocytes Absolute 3.5 1.0 - 4.3 10*3/uL Monocytes Absolute 0.3 0.0 - 0.9 10*3/uL Eosinophils Absolute 0.1 0.0 - 0.5 10*3/uL Basophils Absolute 0.1 0.0 - 0.2 10*3/uL Immature Grans Absolute 0.0 <0.1 10*3/uL Comprehensive metabolic panel Collection Time: 04/16/24 6:23 PM Result Value Ref Range SODIUM 141 136 - 145 mmol/L POTASSIUM 3.8 3.5 - 5.1 mmol/L CHLORIDE 103 98 - 107 mmol/L CARBON DIOXIDE 22 22 - 29 mmol/L ANION GAP 16 (H) 3 - 13 mmol/L UREA NITROGEN 6 (L) 8 - 21 mg/dL CREATININE 0.76 0.72 - 1.25 mg/dL GLUCOSE 151 (H) 74 - 100 mg/dL CALCIUM 8.8 8.4 - 10.2 mg/dL AST (SGOT) 635 (H) <34 U/L ALT 197 (H) <40 U/L ALKALINE PHOSPHATASE 234 (H) 40 - 150 U/L ALBUMIN 4.4 3.5 - 5.0 g/dL BILIRUBIN, TOTAL 1.3 (H) <1.2 mg/dL TOTAL PROTEIN 8.1 6.4 - 8.3 g/dL eGFR >90.0 >60.0 mL/min/1.73m*2 Drug screen panel, emergency Collection Time: 04/16/24 6:23 PM Result Value Ref Range AMPHETAMINE SCREEN Positive BARBITURATES SCREEN Negative BENZODIAZEPINE SCREEN Negative COCAINE METAB. SCREEN Negative METHADONE SCREEN Negative OPIATES SCREEN Negative OXYCODONE SCREEN Negative PHENCYCLIDINE SCREEN Negative FENTANYL SCREEN, UR QUAL Positive Ethanol Collection Time: 04/16/24 6:23 PM Result Value Ref Range ETHANOL IN SER/PLAS 331 (HH) <10 mg/dL SARS-CoV-2 Antigen Collection Time: 04/16/24 6:23 PM Specimen: Nasal; Swab Result Value Ref Range SARS-CoV-2 Antigen Positive (A) Negative Lipase Collection Time: 04/16/24 6:23 PM Result Value Ref Range LIPASE 135 (H) <55 U/L Lactic acid with reflex Collection Time: 04/16/24 6:23 PM Result Value Ref Range LACTIC ACID 4.0 (HH) 0.5 - 2.2 mmol/L Lactic acid with reflex Collection Time: 04/16/24 10:24 PM Result Value Ref Range LACTIC ACID 2.2 0.5 - 2.2 mmol/L Comprehensive metabolic panel Collection Time: 04/17/24 3:39 AM Result Value Ref Range SODIUM 142 136 - 145 mmol/L POTASSIUM 3.7 3.5 - 5.1 mmol/L CHLORIDE 108 (H) 98 - 107 mmol/L CARBON DIOXIDE 21 (L) 22 - 29 mmol/L ANION GAP 13 3 - 13 mmol/L UREA NITROGEN 5 (L) 8 - 21 mg/dL CREATININE 0.61 (L) 0.72 - 1.25 mg/dL GLUCOSE 89 74 - 100 mg/dL CALCIUM 7.8 (L) 8.4 - 10.2 mg/dL AST (SGOT) 387 (H) <34 U/L ALT 117 (H) <40 U/L ALKALINE PHOSPHATASE 172 (H) 40 - 150 U/L ALBUMIN 3.5 3.5 - 5.0 g/dL BILIRUBIN, TOTAL 1.0 <1.2 mg/dL TOTAL PROTEIN 6.2 (L) 6.4 - 8.3 g/dL eGFR >90.0 >60.0 mL/min/1.73m*2 Magnesium Collection Time: 04/17/24 3:39 AM Result Value Ref Range MAGNESIUM 2.1 1.6 - 2.6 mg/dL CBC Collection Time: 04/17/24 3:39 AM Result Value Ref Range Auto WBC 4.2 3.6 - 10.7 10*3/uL RBC 4.06 (L) 4.40 - 5.90 10*6/uL Hemoglobin 11.9 (L) 13.0 - 18.0 g/dL Hematocrit 37.4 (L) 40.0 - 52.0 % MCV 92.1 77.0 - 99.0 fL MCH 29.3 26.0 - 34.0 pg MCHC 31.8 30.5 - 36.0 % RDW 16.3 (H) 11.5 - 15.0 % Platelets 155 140 - 440 10*3/uL MPV 10.0 9.0 - 12.7 fL Lipase Collection Time: 04/17/24 3:39 AM Result Value Ref Range LIPASE 105 (H) <55 U/L Lactic acid with reflex Collection Time: 04/17/24 3:39 AM Result Value Ref Range LACTIC ACID 1.8 0.5 - 2.2 mmol/L cloNIDine, 0.1 mg, Oral, BID folic acid, 1 mg, Oral, Daily metoprolol succinate XL, 50 mg, Oral, Daily pantoprazole, 40 mg, Oral, BID AC risperiDONE, 1 mg, Oral, BID thiamine, 100 mg, Oral, Daily venlafaxine XR, 75 mg, Oral, Daily with breakfast PRN medications: acetaminophen OR acetaminophen, albuterol, gabapentin, guaiFENesin-dextromethorphan, HYDROmorphone, hydrOXYzine pamoate, LORazepam OR LORazepam OR LORazepam OR LORazepam OR LORazepam OR LORazepam OR LORazepam OR LORazepam, LORazepam, naloxone, ondansetron, potassium chloride CR @[id number]@ Plan 1. Alcohol use disorder severe with withdrawals Day # 1 of no use Ciwa q 6 hours Thiamine and folate supplement daily The patient will be detoxified with phenobarb and prn medications for symptomology. This dose will be tapered according to clinical signs and symptoms. Patient is not stable due to history of withdrawal seizure and is still in the window 2. Methamphetamine use disorder the patient denies any drug-induced psychosis Denies any suicidal homicidal ideation Will add PRNs to help with the withdrawal from the meth 3. Generalized anxiety disorder and depression we will continue his Effexor Vistaril and Risperdal Will need 3 to 4 days of detox Stone Ramsey MD, MD Addiction Medicine 04/17/2024 at 12:02 PM [place] Phone: [phone] 575-471303-09-2025 Consult note* Stone Ramsey MD - 04/17/2024 12:01 PM EDTAssociated Order(s): IP CONSULT TO ADDICTION MEDICINE [facility] Consult service H&P Admit Date: 04/16/2024 Primary Care Physician: Tam Hughes DO ] Chief Complaint Patient presents with Alcohol Problem Pt presents with wanting detox from meth (last use yesterday), fentanyl (unknown last use), ETOH (last use right before signing in.) Pt states that he uses everything IV and isn't going to last much longer. Denies any SI/HI/hallucinations. Reports hx of withdraw sz and drinks 1 gallon of 80 proof liquor daily. Reports abdominal pain stating I think I have pancreatitis. GCS 15; breathing is even and unlabored on room air. Gait is steady. Unknown falls. Addiction Problem Abdominal Pain Substance dependence disorder History of Present Illness Roro Valdivia is a 38 y.o. year old male well-known to addiction medicine department for numerous amount of admissions that required alcohol detox Patient is also known to never follow through with any treatment recommendation Patient started drinking when he was 16 years old became became problematic right away Has a remote history of benzodiazepine and methamphetamine and cocaine use in the past Has a history of fentanyl use in the past Currently he drinks 1 pint per day last drink was before coming to the ER Patient denies any IV drug use Has blackouts related to substance use disorder He does have history of withdrawal seizures Denies any history of DTs Denies any history of overdoses Has been legal consequences due to substance use disorder Patient has extensive psych history with multiple admissions for suicidal attempts He is on Effexor Zyprexa and clonidine He does have childhood trauma with PTSD Upon admission his ethanol level was 331 urine drug screen was positive for amphetamine and fentanyl Substance Use Disorder Criteria 1. Taking substance in larger amounts and/or for longer than intended [x] 2. Wanting to cut down or quit substance use but not being able to [x] 3. Spending a lot of time obtaining the substance [x] 4. Craving or a strong desire to use substance [x] 5. Repeatedly doesn't carry out major obligations due to substance use [x] 6. Using despite recurring social or interpersonal problems caused by substance use [x] 7. Reducing social, occupational, or recreational activities due to substance use [x] 8. Recurrent use of substance in physically hazardous situations [x] 9. Consistent use of substance despite recurrent physical or psychological difficulties [x] 10. Tolerance (increased amounts to achieve intoxication or diminished effect) [x] 11. Withdrawal syndrome or the substance is used to avoid withdrawal [x] 2-3 = mild; 4-5 = moderate; 6 or >6 = severe substance use disorder Remaining History Past Medical History: Diagnosis Date Addiction to drug ([facility]) ([facility]) Alcohol abuse Alcohol withdrawal syndrome without complication ([facility]) 06/27/2022 Alcohol withdrawal with inpatient treatment, uncomplicated ([facility]) 03/15/2022 GERD (gastroesophageal reflux disease) History of pancreatitis 01/07/2023 Hypertension Pancreatitis Seizures ([facility]) SVT (supraventricular tachycardia) ([facility]) Tourette syndrome Past Surgical History: Procedure Laterality Date APPENDECTOMY Family History Problem Relation Name Age of Onset No Known Problems Mother No Known Problems Father Social History Socioeconomic History Marital status: Single Spouse name: Not on file Number of children: Not on file Years of education: Not on file Highest education level: Not on file Occupational History Not on file Tobacco Use Smoking status: Every Day Current packs/day: 1.00 Types: Cigarettes Smokeless tobacco: Never Vaping Use Vaping status: Never Used Substance and Sexual Activity Alcohol use: Yes Comment: 2/ vodka daily Drug use: Not Currently Types: Cocaine, Methamphetamines, Oxycodone, Fentanyl, Heroin, Benzodiazepines Sexual activity: Not Currently Other Topics Concern Not on file Social History Narrative Not on file Social Drivers of Health Financial Resource Strain: Low Risk (02/05/2024) Overall Financial Resource Strain (CARDIA) Difficulty of Paying Living Expenses: Not hard at all Recent Concern: Financial Resource Strain - Medium Risk (12/14/2023) Overall Financial Resource Strain (CARDIA) Difficulty of Paying Living Expenses: Somewhat hard Food Insecurity: No Food Insecurity (04/04/2024) Hunger Vital Sign Worried About Running Out of Food in the Last Year: Never true Ran Out of Food in the Last Year: Never true Transportation Needs: No Transportation Needs (04/04/2024) PRAPARE - Transportation Lack of Transportation (Medical): No Lack of Transportation (Non-Medical): No Physical Activity: Inactive (02/05/2024) Exercise Vital Sign Days of Exercise per Week: 0 days Minutes of Exercise per Session: 0 min Stress: Stress Concern Present (02/05/2024) [employer] - Occupational Stress Questionnaire Feeling of Stress : To some extent Social Connections: Socially Isolated (02/05/2024) Social Connection and Isolation Panel [NHANES] Frequency of Communication with Friends and Family: More than three times a week Frequency of Social Gatherings with Friends and Family: More than three times a week Attends [employer] Services: Never Active Member of Clubs or Organizations: No Attends Club or Organization Meetings: Never Marital Status: Never Intimate Partner Violence: Not At Risk (04/16/2024) Humiliation, Afraid, Rape, and Kick questionnaire Fear of Current or Ex-Partner: No Emotionally Abused: No Physically Abused: No Sexually Abused: No Housing Stability: Low Risk (04/04/2024) Housing Stability Vital Sign Unable to Pay for Housing in the Last Year: No Number of Times Moved in the Last Year: 0 Homeless in the Last Year: No Recent Concern: Housing Stability - High Risk (02/05/2024) Housing Stability Vital Sign Unable to Pay for Housing in the Last Year: Patient unable to answer Number of Times Moved in the Last Year: 0 Homeless in the Last Year: Yes Allergies: Patient has no known allergies. Review of Systems Denies suicidal or homicidal ideation denies tactile auditory or visual hallucinations All of systems ROS was completed and was negative unless stated above Physical Exam Vitals: 04/16/24 2325 04/16/24 2327 04/17/24 0058 04/17/24 0519 BP: 142/88 128/81 BP Location: Right arm Pulse: (!) 127 105 99 Resp: 20 20 Temp: 36.9 C (98.5 F) 36.9 C (98.4 F) TempSrc: Temporal Temporal SpO2: 94% 93% 93% Weight: 111 kg (245 lb) Height: 1.854 m (6' 1) General appearance: Cooperative, no distress, appears stated age, non-toxic. Skin: Skin color, temperature, turgor normal. No rashes or lesions. Musculoskeletal: Normal muscle strength and tone in 4 distal extremities. Normal range of motion in4 distal extremities. Psychiatric: Alert and oriented to person, place, and time. Insight: fair. Judgment: fair. Diaphoresis: 0/10 Restlessness: 1/10 Palmar Erythema 0/10 Tongue Fasciculations: 1/10 Extremity Tremors: 1/10 Imaging/Labs/Meds @[email or web address]@ Recent Results (from the past 48 hours) CBC auto differential Collection Time: 04/16/24 6:23 PM Result Value Ref Range Auto WBC 7.5 3.6 - 10.7 10*3/uL RBC 5.07 4.40 - 5.90 10*6/uL Hemoglobin 14.9 13.0 - 18.0 g/dL Hematocrit 45.4 40.0 - 52.0 % MCV 89.5 77.0 - 99.0 fL MCH 29.4 26.0 - 34.0 pg MCHC 32.8 30.5 - 36.0 % RDW 16.7 (H) 11.5 - 15.0 % Platelets 311 140 - 440 10*3/uL MPV 9.6 9.0 - 12.7 fL nRBC 0.0 0.0 - 2.0 /100 WBCs Neutrophils Relative 46.4 38.0 - 82.0 % Lymphocytes Relative 47.3 (H) 15.0 - 45.0 % Monocytes Relative 4.1 (L) 5.0 - 13.0 % Eosinophils Relative 1.2 0.0 - 6.0 % Basophils Relative 0.7 0.0 - 2.0 % Immature Grans % 0.3 0.0 - 2.0 % Neutrophils Absolute 3.5 1.8 - 7.5 10*3/uL Lymphocytes Absolute 3.5 1.0 - 4.3 10*3/uL Monocytes Absolute 0.3 0.0 - 0.9 10*3/uL Eosinophils Absolute 0.1 0.0 - 0.5 10*3/uL Basophils Absolute 0.1 0.0 - 0.2 10*3/uL Immature Grans Absolute 0.0 <0.1 10*3/uL Comprehensive metabolic panel Collection Time: 04/16/24 6:23 PM Result Value Ref Range SODIUM 141 136 - 145 mmol/L POTASSIUM 3.8 3.5 - 5.1 mmol/L CHLORIDE 103 98 - 107 mmol/L CARBON DIOXIDE 22 22 - 29 mmol/L ANION GAP 16 (H) 3 - 13 mmol/L UREA NITROGEN 6 (L) 8 - 21 mg/dL CREATININE 0.76 0.72 - 1.25 mg/dL GLUCOSE 151 (H) 74 - 100 mg/dL CALCIUM 8.8 8.4 - 10.2 mg/dL AST (SGOT) 635 (H) <34 U/L ALT 197 (H) <40 U/L ALKALINE PHOSPHATASE 234 (H) 40 - 150 U/L ALBUMIN 4.4 3.5 - 5.0 g/dL BILIRUBIN, TOTAL 1.3 (H) <1.2 mg/dL TOTAL PROTEIN 8.1 6.4 - 8.3 g/dL eGFR >90.0 >60.0 mL/min/1.73m*2 Drug screen panel, emergency Collection Time: 04/16/24 6:23 PM Result Value Ref Range AMPHETAMINE SCREEN Positive BARBITURATES SCREEN Negative BENZODIAZEPINE SCREEN Negative COCAINE METAB. SCREEN Negative METHADONE SCREEN Negative OPIATES SCREEN Negative OXYCODONE SCREEN Negative PHENCYCLIDINE SCREEN Negative FENTANYL SCREEN, UR QUAL Positive Ethanol Collection Time: 04/16/24 6:23 PM Result Value Ref Range ETHANOL IN SER/PLAS 331 (HH) <10 mg/dL SARS-CoV-2 Antigen Collection Time: 04/16/24 6:23 PM Specimen: Nasal; Swab Result Value Ref Range SARS-CoV-2 Antigen Positive (A) Negative Lipase Collection Time: 04/16/24 6:23 PM Result Value Ref Range LIPASE 135 (H) <55 U/L Lactic acid with reflex Collection Time: 04/16/24 6:23 PM Result Value Ref Range LACTIC ACID 4.0 (HH) 0.5 - 2.2 mmol/L Lactic acid with reflex Collection Time: 04/16/24 10:24 PM Result Value Ref Range LACTIC ACID 2.2 0.5 - 2.2 mmol/L Comprehensive metabolic panel Collection Time: 04/17/24 3:39 AM Result Value Ref Range SODIUM 142 136 - 145 mmol/L POTASSIUM 3.7 3.5 - 5.1 mmol/L CHLORIDE 108 (H) 98 - 107 mmol/L CARBON DIOXIDE 21 (L) 22 - 29 mmol/L ANION GAP 13 3 - 13 mmol/L UREA NITROGEN 5 (L) 8 - 21 mg/dL CREATININE 0.61 (L) 0.72 - 1.25 mg/dL GLUCOSE 89 74 - 100 mg/dL CALCIUM 7.8 (L) 8.4 - 10.2 mg/dL AST (SGOT) 387 (H) <34 U/L ALT 117 (H) <40 U/L ALKALINE PHOSPHATASE 172 (H) 40 - 150 U/L ALBUMIN 3.5 3.5 - 5.0 g/dL BILIRUBIN, TOTAL 1.0 <1.2 mg/dL TOTAL PROTEIN 6.2 (L) 6.4 - 8.3 g/dL eGFR >90.0 >60.0 mL/min/1.73m*2 Magnesium Collection Time: 04/17/24 3:39 AM Result Value Ref Range MAGNESIUM 2.1 1.6 - 2.6 mg/dL CBC Collection Time: 04/17/24 3:39 AM Result Value Ref Range Auto WBC 4.2 3.6 - 10.7 10*3/uL RBC 4.06 (L) 4.40 - 5.90 10*6/uL Hemoglobin 11.9 (L) 13.0 - 18.0 g/dL Hematocrit 37.4 (L) 40.0 - 52.0 % MCV 92.1 77.0 - 99.0 fL MCH 29.3 26.0 - 34.0 pg MCHC 31.8 30.5 - 36.0 % RDW 16.3 (H) 11.5 - 15.0 % Platelets 155 140 - 440 10*3/uL MPV 10.0 9.0 - 12.7 fL Lipase Collection Time: 04/17/24 3:39 AM Result Value Ref Range LIPASE 105 (H) <55 U/L Lactic acid with reflex Collection Time: 04/17/24 3:39 AM Result Value Ref Range LACTIC ACID 1.8 0.5 - 2.2 mmol/L cloNIDine, 0.1 mg, Oral, BID folic acid, 1 mg, Oral, Daily metoprolol succinate XL, 50 mg, Oral, Daily pantoprazole, 40 mg, Oral, BID AC risperiDONE, 1 mg, Oral, BID thiamine, 100 mg, Oral, Daily venlafaxine XR, 75 mg, Oral, Daily with breakfast PRN medications: acetaminophen OR acetaminophen, albuterol, gabapentin, guaiFENesin-dextromethorphan, HYDROmorphone, hydrOXYzine pamoate, LORazepam OR LORazepam OR LORazepam OR LORazepam OR LORazepam OR LORazepam OR LORazepam OR LORazepam, LORazepam, naloxone, ondansetron, potassium chloride CR @[id number]@ Plan 1. Alcohol use disorder severe with withdrawals Day # 1 of no use Ciwa q 6 hours Thiamine and folate supplement daily The patient will be detoxified with phenobarb and prn medications for symptomology. This dose will be tapered according to clinical signs and symptoms. Patient is not stable due to history of withdrawal seizure and is still in the window 2. Methamphetamine use disorder the patient denies any drug-induced psychosis Denies any suicidal homicidal ideation Will add PRNs to help with the withdrawal from the meth 3. Generalized anxiety disorder and depression we will continue his Effexor Vistaril and Risperdal Will need 3 to 4 days of detox Stone Ramsey MD, MD Addiction Medicine 04/17/2024 at 12:02 PM documented in this [facility]03-08-2025 History and physical note* Ant Carty MD - 04/16/2024 7:50 PM EST Attending History and Physical Admit Date: 04/16/2024 PCP: Tam Hugehs DO CHIEF COMPLAINT: Request for detoxification from EtOH, methamphetamine Reason for Admission: EtOH withdrawal with acute on chronic pancreatitis. COVID- 19 infection without hypoxia History Obtained From: patient, EMR HISTORY OF PRESENT ILLNESS: Roro is a 38 y.o. male with past medical history below who presents with chief complaint listed above. Patient history includes IVDU, daily EtOH use with recurrent pancreatitis, HTN, GERD, prior seizures seizures unspecified. Patient reporting daily consumption of 1 bottle/fifth of liquor daily. Review of prior documentation notes patient has been admitted multiple times over the past 6 months for similar concern. Patient requesting detox as he reports concern for his overall health-notes increased anxiety/agitation. Patient reporting sharp, stabbing epigastric pain. BUN/creat WNL at 6/0.76. Anion gap initially elevated at 16. Glucose of 151. Elevation of hepatic enzymes above baseline. Lipase increased at 135. Initial lactic acid at 4.0. WBCs WNL at 7.5. Respiratory panel (+) COVID. Vital signs note mild hypertension-SBP in 140s. Heart rate 103 bpm. Patient has mildly elevated temp butno fever at 99.9. SpO2 in mid to upper 90s on room air. UDS showing positive for amphetamine, fentanyl. EtOH markedly elevated at 331. Will admit for further evaluation and management. -During physical assessment patient denies shortness of breath, cough or any other respiratory symptoms. No fever/chills. Patient states he would not even have known he had COVID if we had not testedfor it. -After discussion with patient, reviewed treatment plan to which he indicated understanding. Duringdiscussion with floor RN later in evening, she informed me that patient was ambivalent/unsure if hestill wanted to undergo detox. Will continue with addiction medicine specialty assessment -CT abdomen/pelvis 1. Findings compatible with pancreatitis, mildly increased in the interval. Correlation with appropriate laboratory values and follow-up suggested. 2. Hepatomegaly and hepatic steatosis. Past Medical History: Past Medical History: Diagnosis Date Addiction to drug (CMS/HCC) (HCC) Alcohol abuse Alcohol withdrawal syndrome without complication (HCC) 06/27/2022 Alcohol withdrawal with inpatient treatment, uncomplicated (HCC) 03/15/2022 GERD (gastroesophageal reflux disease) History of pancreatitis 01/07/2023 Hypertension Pancreatitis Seizures (HCC) SVT (supraventricular tachycardia) (HCC) Tourette syndrome Past Surgical History: Past Surgical History: Procedure Laterality Date APPENDECTOMY Social History: Social History Socioeconomic History Marital status: Single Spouse name: Not on file Number of children: Not on file Years of education: Not on file Highest education level: Not on file Occupational History Not on file Tobacco Use Smoking status: Every Day Current packs/day: 1.00 Types: Cigarettes Smokeless tobacco: Never Vaping Use Vaping status: Never Used Substance and Sexual Activity Alcohol use: Yes Comment: 03/16 vodka daily Drug use: Not Currently Types: Cocaine, Methamphetamines, Oxycodone, Fentanyl, Heroin, Benzodiazepines Sexual activity: Not Currently Other Topics Concern Not on file Social History Narrative Not on file Social Drivers of Health Financial Resource Strain: Low Risk (02/05/2024) Overall Financial Resource Strain (CARDIA) Difficulty of Paying Living Expenses: Not hard at all Recent Concern: Financial Resource Strain - Medium Risk (12/14/2023) Overall Financial Resource Strain (CARDIA) Difficulty of Paying Living Expenses: Somewhat hard Food Insecurity: No Food Insecurity (04/04/2024) Hunger Vital Sign Worried About Running Out of Food in the Last Year: Never true Ran Out of Food in the Last Year: Never true Transportation Needs: No Transportation Needs (04/04/2024) PRAPARE - Transportation Lack of Transportation (Medical): No Lack of Transportation (Non-Medical): No Physical Activity: Inactive (02/05/2024) Exercise Vital Sign Days of Exercise per Week: 0 days Minutes of Exercise per Session: 0 min Stress: Stress Concern Present (02/05/2024) [employer] - Occupational Stress Questionnaire Feeling of Stress : To some extent Social Connections: Socially Isolated (02/05/2024) Social Connection and Isolation Panel [NHANES] Frequency of Communication with Friends and Family: More than three times a week Frequency of Social Gatherings with Friends and Family: More than three times a week Attends [employer] Services: Never Active Member of Clubs or Organizations: No Attends Club or Organization Meetings: Never Marital Status: Never Intimate Partner Violence: Not At Risk (04/04/2024) Humiliation, Afraid, Rape, and Kick questionnaire Fear of Current or Ex-Partner: No Emotionally Abused: No Physically Abused: No Sexually Abused: No Housing Stability: Low Risk (04/04/2024) Housing Stability Vital Sign Unable to Pay for Housing in the Last Year: No Number of Times Moved in the Last Year: 0 Homeless in the Last Year: No Recent Concern: Housing Stability - High Risk (02/05/2024) Housing Stability Vital Sign Unable to Pay for Housing in the Last Year: Patient unable to answer Number of Times Moved in the Last Year: 0 Homeless in the Last Year: Yes Family History: Family History Problem Relation Name Age of Onset No Known Problems Mother No Known Problems Father Medications Prior to Admission: No current facility-administered medications on file prior to encounter. Current Outpatient Medications on File Prior to Encounter Medication Sig Dispense Refill cloNIDine (Catapres) 0.1 MG tablet Take 0.1 mg by mouth 2 times daily. doxylamine (Unisom) 25 MG tablet Take 1 tablet (25 mg) by mouth Nightly as needed for sleep. 30 tablet 0 folic acid (Folvite) 1 MG tablet Take 1 tablet (1 mg) by mouth daily. 30 tablet 1 hydrOXYzine HCl (Atarax) 50 MG tablet Take 1 tablet (50 mg) by mouth every 8 hours as needed for itching. 90 tablet 0 metoprolol succinate XL (Toprol-XL) 50 MG 24 hr tablet Take 1 tablet (50 mg) by mouth daily. Do notcrush or chew. 30 tablet 1 [] oxyCODONE (Roxicodone) 5 MG immediate release tablet Take 1 tablet (5 mg) by mouth every 6 hours as needed for moderate pain (4-6) for up to 5 days. 15 tablet 0 pantoprazole (ProtoNix) 40 MG EC tablet Take 1 tablet (40 mg) by mouth 2 times daily (before meals). Do not crush, chew, or split. 60 tablet 0 risperiDONE (RisperDAL) 0.5 MG tablet Take 2 tablets (1 mg) by mouth 2 times daily. 60 tablet 1 thiamine (Vitamin B1) 100 MG tablet Take 1 tablet (100 mg) by mouth daily. 30 tablet 1 venlafaxine XR (Effexor XR) 75 MG 24 hr capsule Take 1 capsule (75 mg) by mouth daily (with breakfast). Do not crush or chew. 30 capsule 1 Allergies: No Known Allergies REVIEW OF SYSTEMS: As documented in HPI Vitals: BP (!) 147/92 Pulse 103 Temp 37.7 C (99.9 F) (Temporal) Resp 22 Ht 6' 1 (1.854 m) Wt 245lb (111 kg) SpO2 96% BMI 32.32 kg/m BMI Classification: Obese (BMI 30.0-39.9) Pulse Ox: SpO2 Av % Min: 96 % Max: 96 % Supplemental O2: PHYSICAL EXAM: Physical Exam Constitutional: General: He is awake. HENT: Head: Normocephalic and atraumatic. Eyes: General: Vision grossly intact. Gaze aligned appropriately. Extraocular Movements: Extraocular movements intact. Cardiovascular: Rate and Rhythm: Normal rate and regular rhythm. Pulmonary: Breath sounds: Normal breath sounds. No wheezing, rhonchi or rales. Abdominal: General: Bowel sounds are normal. Palpations: Abdomen is soft. Tenderness: There is abdominal tenderness in the epigastric area. Skin: General: Skin is warm and dry. Neurological: General: No focal deficit present. Mental Status: He is alert and oriented to person, place, and time. Psychiatric: Behavior: Behavior is cooperative. DATA: CBC: Recent Labs 04/16/24 1823 WBC 7.5 RBC 5.07 HGB 14.9 HCT 45.4 MCV 89.5 RDW 16.7* PLT 311 BMP: Recent Labs 04/16/24 1823 NA 141 K 3.8 CL 103 CO2 22 BUN 6* CREATININE 0.76 GLUCOSE 151* CALCIUM 8.8 ANIONGAP 16* LIVER PROFILE: Recent Labs 04/16/24 1823 AST 635* ALT 197* BILITOT 1.3* ALKPHOS 234* PROT 8.1 PT/INR: No results for input(s): PROTIME, INR in the last 72 hours. CARDIAC ENZYMES: No results for input(s): TROPONINI in the last 72 hours. Procalcitonin: No results found for: PROCAL Urine Culture: No results found for this or any previous visit. COVID-19 PCR: No results for input(s): COVID19 in the last 72 hours. I reviewed: [x] laboratory results [x] radiographic results At the time of today's encounter. Pt was advised of the results. Data: (LOW: 2x CAT1 or independent historian MOD: 3x CAT1 or 1x CAT3 EXTENSIVE: 3x CAT1 and 1x CAT3) Assessment Discussed management with the ED provider and agree with hospitalization. Acute, acute on chronic, unstable/uncontrolled chronic problems/diagnoses: EtOH, amphetamine/fentanyl withdrawal -Addiction medicine specialty consulted -As needed meds for symptomatic relief -As needed Ativan per [facility] protocol -IVF hydration -Trend lactic acid -AM labs-CMP, replete electrolytes as needed -Reported prior seizure history-seizure precautions, as needed Ativan 2 mg IV in event of episode -Thiamine 100 mg -Folic acid 1 mg - Will hold on Tramadol Taper in withdrawal order set d/t Pt's Hx of seizure activity. Pending Addiction specialty review in AM 2. COVID-19 infection -Droplet plus isolation -Hold on remdesivir, steroids as patient is not reporting respiratory symptoms -As needed albuterol MDI Stable chronic problems affecting care, new non-acute diagnoses: History of supraventricular tachycardia -Metoprolol 50 mg 2. History of hypertension -Use patient's clonidine 0.1 mg -As needed IV labetalol 3. GERD -Pantoprazole 40 mg Plan As a result of the above findings & factors, the following mgmt was pursued: - am labs, replace lytes prn - PT/OT/CM/SW - delirium precautions: increase activity and limit nighttime disturbances - DVT prophylaxis: SCDs and encourage ambulation Complexity: Chronic illness with mild to moderate exacerbation, progression, or side effect of tx (MOD). Acute illness with systemic symptoms (MOD). Risk: Admission to hospital-level care was considered or occurred (HIGH). Advance Directive: Full code Anticipated Discharge - Date -04/18 - Location -TBD Total time spent (which include face to face and non face to face encounters) : 60 minutes. Extended Emergency Contact Information Primary Emergency Contact: Summer Valdivia Mobile Relation: Mother Ant Carty MD Division of Hospital Medicine Inpatient Medical Services/[facility] [place] [place] Phone: [phone] 734-221703-08-2025 [facility]03-08-2025 History and physical note* Ant Carty MD - 04/16/2024 7:50 PM EST Attending History and Physical Admit Date: 04/16/2024 PCP: Tam Hughes DO CHIEF COMPLAINT: Request for detoxification from EtOH, methamphetamine Reason for Admission: EtOH withdrawal with acute on chronic pancreatitis. COVID- 19 infection without hypoxia History Obtained From: patient, EMR HISTORY OF PRESENT ILLNESS: Roro is a 38 y.o. male with past medical history below who presents with chief complaint listed above. Patient history includes IVDU, daily EtOH use with recurrent pancreatitis, HTN, GERD, prior seizures seizures unspecified. Patient reporting daily consumption of 1 bottle/fifth of liquor daily. Review of prior documentation notes patient has been admitted multiple times over the past 6 months for similar concern. Patient requesting detox as he reports concern for his overall health-notes increased anxiety/agitation. Patient reporting sharp, stabbing epigastric pain. BUN/creat WNL at 6/0.76. Anion gap initially elevated at 16. Glucose of 151. Elevation of hepatic enzymes above baseline. Lipase increased at 135. Initial lactic acid at 4.0. WBCs WNL at 7.5. Respiratory panel (+) COVID. Vital signs note mild hypertension-SBP in 140s. Heart rate 103 bpm. Patient has mildly elevated temp butno fever at 99.9. SpO2 in mid to upper 90s on room air. UDS showing positive for amphetamine, fentanyl. EtOH markedly elevated at 331. Will admit for further evaluation and management. -During physical assessment patient denies shortness of breath, cough or any other respiratory symptoms. No fever/chills. Patient states he would not even have known he had COVID if we had not testedfor it. -After discussion with patient, reviewed treatment plan to which he indicated understanding. Duringdiscussion with floor RN later in evening, she informed me that patient was ambivalent/unsure if hestill wanted to undergo detox. Will continue with addiction medicine specialty assessment -CT abdomen/pelvis 1. Findings compatible with pancreatitis, mildly increased in the interval. Correlation with appropriate laboratory values and follow-up suggested. 2. Hepatomegaly and hepatic steatosis. Past Medical History: Past Medical History: Diagnosis Date Addiction to drug (CMS/HCC) (HCC) Alcohol abuse Alcohol withdrawal syndrome without complication (HCC) 06/27/2022 Alcohol withdrawal with inpatient treatment, uncomplicated (HCC) 03/15/2022 GERD (gastroesophageal reflux disease) History of pancreatitis 01/07/2023 Hypertension Pancreatitis Seizures (HCC) SVT (supraventricular tachycardia) (HCC) Tourette syndrome Past Surgical History: Past Surgical History: Procedure Laterality Date APPENDECTOMY Social History: Social History Socioeconomic History Marital status: Single Spouse name: Not on file Number of children: Not on file Years of education: Not on file Highest education level: Not on file Occupational History Not on file Tobacco Use Smoking status: Every Day Current packs/day: 1.00 Types: Cigarettes Smokeless tobacco: Never Vaping Use Vaping status: Never Used Substance and Sexual Activity Alcohol use: Yes Comment: 2 vodka daily Drug use: Not Currently Types: Cocaine, Methamphetamines, Oxycodone, Fentanyl, Heroin, Benzodiazepines Sexual activity: Not Currently Other Topics Concern Not on file Social History Narrative Not on file Social Drivers of Health Financial Resource Strain: Low Risk (02/05/2024) Overall Financial Resource Strain (CARDIA) Difficulty of Paying Living Expenses: Not hard at all Recent Concern: Financial Resource Strain - Medium Risk (12/14/2023) Overall Financial Resource Strain (CARDIA) Difficulty of Paying Living Expenses: Somewhat hard Food Insecurity: No Food Insecurity (04/04/2024) Hunger Vital Sign Worried About Running Out of Food in the Last Year: Never true Ran Out of Food in the Last Year: Never true Transportation Needs: No Transportation Needs (04/04/2024) PRAPARE - Transportation Lack of Transportation (Medical): No Lack of Transportation (Non-Medical): No Physical Activity: Inactive (02/05/2024) Exercise Vital Sign Days of Exercise per Week: 0 days Minutes of Exercise per Session: 0 min Stress: Stress Concern Present (02/05/2024) [employer] - Occupational Stress Questionnaire Feeling of Stress : To some extent Social Connections: Socially Isolated (02/05/2024) Social Connection and Isolation Panel [NHANES] Frequency of Communication with Friends and Family: More than three times a week Frequency of Social Gatherings with Friends and Family: More than three times a week Attends [employer] Services: Never Active Member of Clubs or Organizations: No Attends Club or Organization Meetings: Never Marital Status: Never Intimate Partner Violence: Not At Risk (04/04/2024) Humiliation, Afraid, Rape, and Kick questionnaire Fear of Current or Ex-Partner: No Emotionally Abused: No Physically Abused: No Sexually Abused: No Housing Stability: Low Risk (04/04/2024) Housing Stability Vital Sign Unable to Pay for Housing in the Last Year: No Number of Times Moved in the Last Year: 0 Homeless in the Last Year: No Recent Concern: Housing Stability - High Risk (02/05/2024) Housing Stability Vital Sign Unable to Pay for Housing in the Last Year: Patient unable to answer Number of Times Moved in the Last Year: 0 Homeless in the Last Year: Yes Family History: Family History Problem Relation Name Age of Onset No Known Problems Mother No Known Problems Father Medications Prior to Admission: No current facility-administered medications on file prior to encounter. Current Outpatient Medications on File Prior to Encounter Medication Sig Dispense Refill cloNIDine (Catapres) 0.1 MG tablet Take 0.1 mg by mouth 2 times daily. doxylamine (Unisom) 25 MG tablet Take 1 tablet (25 mg) by mouth Nightly as needed for sleep. 30 tablet 0 folic acid (Folvite) 1 MG tablet Take 1 tablet (1 mg) by mouth daily. 30 tablet 1 hydrOXYzine HCl (Atarax) 50 MG tablet Take 1 tablet (50 mg) by mouth every 8 hours as needed for itching. 90 tablet 0 metoprolol succinate XL (Toprol-XL) 50 MG 24 hr tablet Take 1 tablet (50 mg) by mouth daily. Do notcrush or chew. 30 tablet 1 [] oxyCODONE (Roxicodone) 5 MG immediate release tablet Take 1 tablet (5 mg) by mouth every 6 hours as needed for moderate pain (4-6) for up to 5 days. 15 tablet 0 pantoprazole (ProtoNix) 40 MG EC tablet Take 1 tablet (40 mg) by mouth 2 times daily (before meals). Do not crush, chew, or split. 60 tablet 0 risperiDONE (RisperDAL) 0.5 MG tablet Take 2 tablets (1 mg) by mouth 2 times daily. 60 tablet 1 thiamine (Vitamin B1) 100 MG tablet Take 1 tablet (100 mg) by mouth daily. 30 tablet 1 venlafaxine XR (Effexor XR) 75 MG 24 hr capsule Take 1 capsule (75 mg) by mouth daily (with breakfast). Do not crush or chew. 30 capsule 1 Allergies: No Known Allergies REVIEW OF SYSTEMS: As documented in HPI Vitals: BP (!) 147/92 Pulse 103 Temp 37.7 C (99.9 F) (Temporal) Resp 22 Ht 6' 1 (1.854 m) Wt 245lb (111 kg) SpO2 96% BMI 32.32 kg/m BMI Classification: Obese (BMI 30.0-39.9) Pulse Ox: SpO2 Av % Min: 96 % Max: 96 % Supplemental O2: PHYSICAL EXAM: Physical Exam Constitutional: General: He is awake. HENT: Head: Normocephalic and atraumatic. Eyes: General: Vision grossly intact. Gaze aligned appropriately. Extraocular Movements: Extraocular movements intact. Cardiovascular: Rate and Rhythm: Normal rate and regular rhythm. Pulmonary: Breath sounds: Normal breath sounds. No wheezing, rhonchi or rales. Abdominal: General: Bowel sounds are normal. Palpations: Abdomen is soft. Tenderness: There is abdominal tenderness in the epigastric area. Skin: General: Skin is warm and dry. Neurological: General: No focal deficit present. Mental Status: He is alert and oriented to person, place, and time. Psychiatric: Behavior: Behavior is cooperative. DATA: CBC: Recent Labs 04/16/24 1823 WBC 7.5 RBC 5.07 HGB 14.9 HCT 45.4 MCV 89.5 RDW 16.7* PLT 311 BMP: Recent Labs 04/16/24 1823 NA 141 K 3.8 CL 103 CO2 22 BUN 6* CREATININE 0.76 GLUCOSE 151* CALCIUM 8.8 ANIONGAP 16* LIVER PROFILE: Recent Labs 04/16/24 1823 AST 635* ALT 197* BILITOT 1.3* ALKPHOS 234* PROT 8.1 PT/INR: No results for input(s): PROTIME, INR in the last 72 hours. CARDIAC ENZYMES: No results for input(s): TROPONINI in the last 72 hours. Procalcitonin: No results found for: PROCAL Urine Culture: No results found for this or any previous visit. COVID-19 PCR: No results for input(s): COVID19 in the last 72 hours. I reviewed: [x] laboratory results [x] radiographic results At the time of today's encounter. Pt was advised of the results. Data: (LOW: 2x CAT1 or independent historian MOD: 3x CAT1 or 1x CAT3 EXTENSIVE: 3x CAT1 and 1x CAT3) Assessment Discussed management with the ED provider and agree with hospitalization. Acute, acute on chronic, unstable/uncontrolled chronic problems/diagnoses: EtOH, amphetamine/fentanyl withdrawal -Addiction medicine specialty consulted -As needed meds for symptomatic relief -As needed Ativan per [facility] protocol -IVF hydration -Trend lactic acid -AM labs-CMP, replete electrolytes as needed -Reported prior seizure history-seizure precautions, as needed Ativan 2 mg IV in event of episode -Thiamine 100 mg -Folic acid 1 mg - Will hold on Tramadol Taper in withdrawal order set d/t Pt's Hx of seizure activity. Pending Addiction specialty review in AM 2. COVID-19 infection -Droplet plus isolation -Hold on remdesivir, steroids as patient is not reporting respiratory symptoms -As needed albuterol MDI Stable chronic problems affecting care, new non-acute diagnoses: History of supraventricular tachycardia -Metoprolol 50 mg 2. History of hypertension -Use patient's clonidine 0.1 mg -As needed IV labetalol 3. GERD -Pantoprazole 40 mg Plan As a result of the above findings & factors, the following mgmt was pursued: - am labs, replace lytes prn - PT/OT/CM/SW - delirium precautions: increase activity and limit nighttime disturbances - DVT prophylaxis: SCDs and encourage ambulation Complexity: Chronic illness with mild to moderate exacerbation, progression, or side effect of tx (MOD). Acute illness with systemic symptoms (MOD). Risk: Admission to hospital-level care was considered or occurred (HIGH). Advance Directive: Full code Anticipated Discharge - Date -04/18 - Location -TBD Total time spent (which include face to face and non face to face encounters) : 60 minutes. Extended Emergency Contact Information Primary Emergency Contact: Summer Valdivia Mobile Relation: Mother Ant Carty MD Division of Hospital Medicine Inpatient Medical Services/[facility] [place] documented in this [facility]03-08-2025 Emergency department Note* Nancy Sultana DO - 04/16/2024 4:14 PM EST Emergency Department Encounter [facility] EMERGENCY DEPT Patient: Roro Valdivia : 1985 Date of Evaluation: 04/16/2024 ED Supervising Physician: Nancy Sultana DO I personally evaluated Roro Valdivia and made/approved the management plan and take responsibility for the patient management. This will serve as my Supervisory note and shared attestation. I did perform a substantive portion of the visit including all aspects of the Medical Decision Making. I wore appropriate PPE for the entirety of this encounter. In brief, Roro Valdivia is a 38 y.o. that presents to the emergency department requesting detox from alcohol. Patient reports he is to drink a substantial amount of alcohol every day in order to avoid DTs and alcohol withdrawal seizures. He reports he has a history of recurrent pancreatitis and he feels as if he is starting to get a pancreatitis flare again. He reports he has had vomiting and epigastric abdominal pain. Reports he drank just prior to arrival Focused exam: Sitting upright in triage chair, no acute distress. No tremor noted. Speaking in full sentences. Noagitation, moves all extremities Abdomen is soft, nondistended, tender to palpation in the epigastric region without rebound or involuntary guarding Brief ED course/MDM: Patient is a 38-year-old male presenting to the emergency department for evaluation of epigastric abdominal pain as well as requesting detox from alcohol Concern for recurrent pancreatitis, alcohol detox. Obtained labs as well as imaging. These are concerning for pancreatitis as well as an acute transaminitis worse than the patient's baseline. Will admit for pancreatitis and he can undergo alcohol detox while admitted. Diagnostics interpreted by me: I personally discussed the patient's management with other clinicians: All diagnostic, treatment, and disposition decisions were made by myself in conjunction with the Resident. I also supervised erickson portions of any procedures performed by the Resident. For all further details of the patient's emergency department visit, please see their documentation. (Comment: Please note this report has been produced using speech recognition software and may contain errors related to that system including errors in grammar, punctuation, and spelling, as well as words and phrases that may be inappropriate. If there are any questions or concerns please feel freeto contact the dictating provider for clarification.) Nancy Sultana DO Acute Care [employer] Nancy Sultana DO 04/18/24 1257 * Adrian Silva MD - 04/16/2024 4:14 PM EST EMERGENCY DEPARTMENT ENCOUNTER Pt Name: Roro Valdivia Birthdate 1985 Date of evaluation: 04/16/2024 ED Provider: Adrian Silva MD CHIEF COMPLAINT Chief Complaint Patient presents with Alcohol Problem Pt presents with wanting detox from meth (last use yesterday), fentanyl (unknown last use), ETOH (last use right before signing in.) Pt states that he uses everything IV and isn't going to last much longer. Denies any SI/HI/hallucinations. Reports hx of withdraw sz and drinks 1 gallon of 80 proof liquor daily. Reports abdominal pain stating I think I have pancreatitis. GCS 15; breathing is even and unlabored on room air. Gait is steady. Unknown falls. Addiction Problem Abdominal Pain HISTORY OF PRESENT ILLNESS (Location/Symptom, Timing/Onset, Context/Setting, Quality, Duration, Modifying Factors, Severity) Note limiting factors. I wore appropriate PPE for the entirety of this encounter. HPI this is a 38-year-old male with past medical history of severe alcohol use disorder, recurrent pancreatitis, hypertension and seizures who presents to the emergency department due to concerns forabdominal pain and desire for detox. He states he drinks roughly 1 gallon of 80 proof alcohol daily. His last drink was just prior to arrival. He recently was admitted with acute pancreatitis and at t hat time was not interested in detox. He states he is most concerned about developing panic attacks. He has no additional complaints or concerns. Nursing Notes were reviewed. Limitations to history: None Outside historians: None REVIEW OF SYSTEMS Review of Systems Pertinent positives and negatives as per HPI. PAST MEDICAL HISTORY Past Medical History: Diagnosis Date Addiction to drug ([facility]) (HCC) Alcohol abuse Alcohol withdrawal syndrome without complication ([facility]) 06/27/2022 Alcohol withdrawal with inpatient treatment, uncomplicated ([facility]) 03/15/2022 GERD (gastroesophageal reflux disease) History of pancreatitis 01/07/2023 Hypertension Pancreatitis Seizures ([facility]) SVT (supraventricular tachycardia) ([facility]) Tourette syndrome SURGICAL HISTORY Past Surgical History: Procedure Laterality Date APPENDECTOMY CURRENT MEDICATIONS Current Discharge Medication List CONTINUE these medications which have NOT CHANGED Details cloNIDine (Catapres) 0.1 MG tablet Take 0.1 mg by mouth 2 times daily. doxylamine (Unisom) 25 MG tablet Take 1 tablet (25 mg) by mouth Nightly as needed for sleep. Qty: 30 tablet, Refills: 0 folic acid (Folvite) 1 MG tablet Take 1 tablet (1 mg) by mouth daily. Qty: 30 tablet, Refills: 1 hydrOXYzine HCl (Atarax) 50 MG tablet Take 1 tablet (50 mg) by mouth every 8 hours as needed for itching. Qty: 90 tablet, Refills: 0 metoprolol succinate XL (Toprol-XL) 50 MG 24 hr tablet Take 1 tablet (50 mg) by mouth daily. Do notcrush or chew. Qty: 30 tablet, Refills: 1 pantoprazole (ProtoNix) 40 MG EC tablet Take 1 tablet (40 mg) by mouth 2 times daily (before meals). Do not crush, chew, or split. Qty: 60 tablet, Refills: 0 risperiDONE (RisperDAL) 0.5 MG tablet Take 2 tablets (1 mg) by mouth 2 times daily. Qty: 60 tablet, Refills: 1 thiamine (Vitamin B1) 100 MG tablet Take 1 tablet (100 mg) by mouth daily. Qty: 30 tablet, Refills: 1 venlafaxine XR (Effexor XR) 75 MG 24 hr capsule Take 1 capsule (75 mg) by mouth daily (with breakfast). Do not crush or chew. Qty: 30 capsule, Refills: 1 ALLERGIES Patient has no known allergies. FAMILY HISTORY Family History Problem Relation Name Age of Onset No Known Problems Mother No Known Problems Father SOCIAL HISTORY Social History Socioeconomic History Marital status: Single Tobacco Use Smoking status: Every Day Current packs/day: 1.00 Types: Cigarettes Smokeless tobacco: Never Vaping Use Vaping status: Never Used Substance and Sexual Activity Alcohol use: Yes Comment: 2/5 vodka daily Drug use: Not Currently Types: Cocaine, Methamphetamines, Oxycodone, Fentanyl, Heroin, Benzodiazepines Sexual activity: Not Currently Social Drivers of Health Financial Resource Strain: Low Risk (02/05/2024) Overall Financial Resource Strain (CARDIA) Difficulty of Paying Living Expenses: Not hard at all Recent Concern: Financial Resource Strain - Medium Risk (12/14/2023) Overall Financial Resource Strain (CARDIA) Difficulty of Paying Living Expenses: Somewhat hard Food Insecurity: No Food Insecurity (04/04/2024) Hunger Vital Sign Worried About Running Out of Food in the Last Year: Never true Ran Out of Food in the Last Year: Never true Transportation Needs: No Transportation Needs (04/04/2024) PRAPARE - Transportation Lack of Transportation (Medical): No Lack of Transportation (Non-Medical): No Physical Activity: Inactive (02/05/2024) Exercise Vital Sign Days of Exercise per Week: 0 days Minutes of Exercise per Session: 0 min Stress: Stress Concern Present (02/05/2024) [employer] - Occupational Stress Questionnaire Feeling of Stress : To some extent Social Connections: Socially Isolated (02/05/2024) Social Connection and Isolation Panel [NHANES] Frequency of Communication with Friends and Family: More than three times a week Frequency of Social Gatherings with Friends and Family: More than three times a week Attends [employer] Services: Never Active Member of Clubs or Organizations: No Attends Club or Organization Meetings: Never Marital Status: Never Intimate Partner Violence: Not At Risk (04/16/2024) Humiliation, Afraid, Rape, and Kick questionnaire Fear of Current or Ex-Partner: No Emotionally Abused: No Physically Abused: No Sexually Abused: No Housing Stability: Low Risk (04/04/2024) Housing Stability Vital Sign Unable to Pay for Housing in the Last Year: No Number of Times Moved in the Last Year: 0 Homeless in the Last Year: No Recent Concern: Housing Stability - High Risk (02/05/2024) Housing Stability Vital Sign Unable to Pay for Housing in the Last Year: Patient unable to answer Number of Times Moved in the Last Year: 0 Homeless in the Last Year: Yes SCREENINGS PHYSICAL EXAM ED Triage Vitals [04/16/24 1653] Temp Heart Rate Resp BP 37.7 C (99.9 F) 103 22 (!) 147/92 SpO2 Temp Source Heart Rate Source Patient Position 96 % Temporal Monitor -- BP Location FiO2 (%) -- -- PE: GENERAL APPEARANCE: Awake and alert. Cooperative. No acute distress. HEAD: Normocephalic. Atraumatic. EYES: EOM's grossly intact. Sclera anicteric. ENT: Mucous membranes are moist. Tolerates saliva. No trismus. NECK: Supple. No meningismus. Trachea midline. HEART: RRR. Radial pulses 2+. LUNGS: Respirations unlabored. CTAB ABDOMEN: Soft. Non-tender. No guarding or rebound. BACK: Atraumatic. No midline tenderness, step offs or deformities. No CVA tenderness. EXTREMITIES: No acute deformities. Full ROM in all 4 extremities. No numbness or paresthesias. Pulses intact. Capillary refill <2 sec. SKIN: Warm and dry. NEUROLOGICAL: No gross facial drooping. Moves all 4 extremities spontaneously. PSYCHIATRIC: Normal mood. DIAGNOSTIC RESULTS Procedures/EKG: EKG read per attending as applicable RADIOLOGY (Per Emergency Physician): Interpretation per the Radiologist below, if available at the time of this note: CT abdomen pelvis wo IV contrast Final Result 1. Findings compatible with pancreatitis, mildly increased in the interval. Correlation with appropriate laboratory values and follow-up suggested. 2. Hepatomegaly and hepatic steatosis. Report Dictated on Electronically Signed By: Paul Plata MD Electronically Signed Date/Time: 04/16/2024 6:57 PM EST ED BEDSIDE ULTRASOUND: Performed by ED Physician - none LABS: Labs Reviewed SARS-COV-2 ANTIGEN - Abnormal Result Value SARS-CoV-2 Antigen Positive (*) CBC WITH AUTO DIFFERENTIAL - Abnormal Auto WBC 7.5 RBC 5.07 Hemoglobin 14.9 Hematocrit 45.4 MCV 89.5 MCH 29.4 MCHC 32.8 RDW 16.7 (*) Platelets 311 MPV 9.6 nRBC 0.0 Neutrophils Relative 46.4 Lymphocytes Relative 47.3 (*) Monocytes Relative 4.1 (*) Eosinophils Relative 1.2 Basophils Relative 0.7 Immature Grans % 0.3 Neutrophils Absolute 3.5 Lymphocytes Absolute 3.5 Monocytes Absolute 0.3 Eosinophils Absolute 0.1 Basophils Absolute 0.1 Immature Grans Absolute 0.0 COMPREHENSIVE METABOLIC PANEL - Abnormal SODIUM 141 POTASSIUM 3.8 CHLORIDE 103 CARBON DIOXIDE 22 ANION GAP 16 (*) UREA NITROGEN 6 (*) CREATININE 0.76 GLUCOSE 151 (*) CALCIUM 8.8 AST (SGOT) 635 (*) ALT 197 (*) ALKALINE PHOSPHATASE 234 (*) ALBUMIN 4.4 BILIRUBIN, TOTAL 1.3 (*) TOTAL PROTEIN 8.1 eGFR >90.0 ETHANOL - Abnormal ETHANOL IN SER/PLAS 331 (*) Narrative: 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 NOTE: This result is for medical treatment only. Analysis performed using non- forensic procedures. LIPASE - Abnormal LIPASE 135 (*) LACTIC ACID WITH REFLEX - Abnormal LACTIC ACID 4.0 (*) LACTIC ACID WITH REFLEX - Normal LACTIC ACID 2.2 DRUGS OF ABUSE AMPHETAMINE SCREEN Positive BARBITURATES SCREEN Negative BENZODIAZEPINE SCREEN Negative COCAINE METAB. SCREEN Negative METHADONE SCREEN Negative OPIATES SCREEN Negative OXYCODONE SCREEN Negative PHENCYCLIDINE SCREEN Negative FENTANYL SCREEN, UR QUAL Positive Narrative: The expected value for all of the drugs listed above is Negative. The following drugs or drug groups have been screened for by Immunoassay at the following thresholds: Amphetamine class (1000 ng/mL) Barbiturates (200 ng/mL) Benzodiazepines (200 ng/mL) Cocaine (300 ng/mL) Methadone (300 ng/mL) Opiates (300 ng/mL) Oxycodone (100 ng/mL) PCP (25 ng/mL) Fentanyl (1.0 ng/ml) NOTE: These results are for medical treatment only. Analysis performed using non-forensic procedures. POSITIVE results are NOT confirmed by a more specific alternative method unless requested. If confirmation is needed, request confirmation under separateorder. COMPREHENSIVE METABOLIC PANEL MAGNESIUM CBC (HEMOGRAM) LIPASE LACTIC ACID WITH REFLEX All other labs were within normal range or not returned as of this dictation. EMERGENCY DEPARTMENT COURSE and DIFFERENTIAL DIAGNOSIS/MDM: Vitals: Vitals: 04/16/24 2117 04/16/24 2325 04/16/24 2327 04/17/24 0058 BP: (!) 150/109 142/88 BP Location: Right arm Pulse: (!) 120 (!) 127 105 Resp: 16 20 Temp: 37 C (98.6 F) 36.9 C (98.5 F) TempSrc: Temporal Temporal SpO2: 98% 94% 93% Weight: 111 kg (245 lb) Height: 1.854 m (6' 1) MDM: See HPI above. Patient is a 38-year-old male with past medical history as described above who presents to the Emergency Department due to a desire for alcohol detox and abdominal pain. The patient was recently mated purely for abdominal pain at the end of March or was found to have acute pancreatitis. Given the patient's reproducible tenderness in the epigastrium with significant alcohol use. Concern for an additional bout of acute on chronic pancreatitis. Additionally there were some concern for possible sequela of prior episodes of pancreatitis including a pseudocyst. CT of his abdomen pelvis demonstrated acute pancreatitis, marginally worse from prior. His lactic acid was noted to be 4. He was given 2 mg of IV Ativan and placed on CIWA protocol due to high concern for development of withdrawal symptoms. Given the patient's complex medical needs we did not feel he would be appropriate for for direct admission to the detox unit. His case was discussed with the admitting hospitalist who agreed to admit the patient for acute on chronic pancreatitis and detox consult. Please see their documentation for the remainder of the patient's hospital course and ultimate disposition. Diagnoses as of 04/17/24127 Acute recurrent pancreatitis Medications folic acid (Folvite) tablet 1 mg (1 mg Oral Given 04/16/241823) LORazepam (Ativan) tablet 1 mg (1 mg Oral Given 04/16/242346) Or LORazepam (Ativan) injection 1 mg ( IntraVENous See Alternative 04/16/242346) Or LORazepam (Ativan) tablet 2 mg ( Oral See Alternative 04/16/242346) Or LORazepam (Ativan) injection 2 mg ( IntraVENous See Alternative 04/16/242346) Or LORazepam (Ativan) tablet 3 mg ( Oral See Alternative 04/16/242346) Or LORazepam (Ativan) injection 3 mg ( IntraVENous See Alternative 04/16/242346) Or LORazepam (Ativan) tablet 4 mg ( Oral See Alternative 04/16/242346) Or LORazepam (Ativan) injection 4 mg ( IntraVENous See Alternative 04/16/242346) thiamine (Vitamin B1) tablet 100 mg (has no administration in time range) venlafaxine XR (Effexor XR) 24 hr capsule 75 mg (has no administration in time range) risperiDONE (RisperDAL) tablet 1 mg (1 mg Oral Given 04/16/242137) pantoprazole (ProtoNix) EC tablet 40 mg (has no administration in time range) metoprolol succinate XL (Toprol-XL) 24 hr tablet 50 mg (has no administration in time range) cloNIDine (Catapres) tablet 0.1 mg (has no administration in time range) potassium chloride CR (Klor-Con M10) ER tablet 40 mEq (has no administration in time range) acetaminophen (Tylenol) tablet 650 mg (650 mg Oral Not Given 04/16/242130) Or acetaminophen (Tylenol) suppository 650 mg ( Rectal See Alternative 04/16/242130) albuterol 108 (90 Base) MCG/ACT inhaler 2 puff (has no administration in time range) guaiFENesin-dextromethorphan (Robitussin DM) 100-10 MG/5ML syrup 5 mL (has no administration in time range) gabapentin (Neurontin) capsule 300 mg (has no administration in time range) hydrOXYzine pamoate (Vistaril) capsule 50 mg (has no administration in time range) sodium chloride 0.9 % infusion (75 mL/hr IntraVENous Rate/Dose Verify 04/16/242333) LORazepam (Ativan) injection 2 mg (has no administration in time range) naloxone (Narcan) injection 0.4 mg (has no administration in time range) HYDROmorphone (Dilaudid) injection 0.5 mg (0.5 mg IntraVENous Given 04/17/2456) ondansetron (Zofran) injection 4 mg (4 mg IntraVENous Given 04/17/2456) LORazepam (Ativan) injection 2 mg (2 mg IntraVENous Given 04/16/241823) sodium chloride 0.9 % bolus 1,000 mL (0 mL IntraVENous Stopped 04/16/241945) thiamine (Vitamin B1) tablet 100 mg (100 mg Oral Given 04/16/241823) PROCEDURES: Unless otherwise noted below, none Procedures FINAL IMPRESSION 1. Acute recurrent pancreatitis DISPOSITION Admit 04/16/2024 07:31:12 PM PATIENT REFERRED TO: No follow-up provider specified. DISCHARGE MEDICATIONS: Current Discharge Medication List (Comment: Please note this report has been produced using speech recognition software and may contain errors related to that system including errors in grammar, punctuation, and spelling, as well as words and phrases that may be inappropriate. If there are any questions or concerns please feel freeto contact the dictating provider for clarification.) Adrian Silva MD (electronically signed) Emergency Medicine Provider Adrian Silva MD Resident 04/17/24 0130 Cosigned by Nancy Sultana DO at 04/18/2024 1:05 PM EDT documented in this [facility]03-08-2025 Physician Emergency department Note* Nancy Sultana DO - 04/16/2024 4:14 PM EST Emergency Department Encounter [facility] EMERGENCY DEPT Patient: Roro Valdivia : 1985 Date of Evaluation: 04/16/2024 ED Supervising Physician: Nancy Sultana DO I personally evaluated Roro Valdivia and made/approved the management plan and take responsibility for the patient management. This will serve as my Supervisory note and shared attestation. I did perform a substantive portion of the visit including all aspects of the Medical Decision Making. I wore appropriate PPE for the entirety of this encounter. In brief, Roor Valdivia is a 38 y.o. that presents to the emergency department requesting detox from alcohol. Patient reports he is to drink a substantial amount of alcohol every day in order to avoid DTs and alcohol withdrawal seizures. He reports he has a history of recurrent pancreatitis and he feels as if he is starting to get a pancreatitis flare again. He reports he has had vomiting and epigastric abdominal pain. Reports he drank just prior to arrival Focused exam: Sitting upright in triage chair, no acute distress. No tremor noted. Speaking in full sentences. Noagitation, moves all extremities Abdomen is soft, nondistended, tender to palpation in the epigastric region without rebound or involuntary guarding Brief ED course/MDM: Patient is a 38-year-old male presenting to the emergency department for evaluation of epigastric abdominal pain as well as requesting detox from alcohol Concern for recurrent pancreatitis, alcohol detox. Obtained labs as well as imaging. These are concerning for pancreatitis as well as an acute transaminitis worse than the patient's baseline. Will admit for pancreatitis and he can undergo alcohol detox while admitted. Diagnostics interpreted by me: I personally discussed the patient's management with other clinicians: All diagnostic, treatment, and disposition decisions were made by myself in conjunction with the Resident. I also supervised erickson portions of any procedures performed by the Resident. For all further details of the patient's emergency department visit, please see their documentation. (Comment: Please note this report has been produced using speech recognition software and may contain errors related to that system including errors in grammar, punctuation, and spelling, as well as words and phrases that may be inappropriate. If there are any questions or concerns please feel freeto contact the dictating provider for clarification.) Nancy Sultana DO [employer] Nancy Sultana DO 04/18/24 [address] Phone: [phone] 398-183203-08-2025 Physician Emergency department Note* Adrian Silva MD - 04/16/2024 4:14 PM EST EMERGENCY DEPARTMENT ENCOUNTER Pt Name: Roro Valdivia Birthdate 1985 Date of evaluation: 04/16/2024 ED Provider: Adrian Silva MD CHIEF COMPLAINT Chief Complaint Patient presents with Alcohol Problem Pt presents with wanting detox from meth (last use yesterday), fentanyl (unknown last use), ETOH (last use right before signing in.) Pt states that he uses everything IV and isn't going to last much longer. Denies any SI/HI/hallucinations. Reports hx of withdraw sz and drinks 1 gallon of 80 proof liquor daily. Reports abdominal pain stating I think I have pancreatitis. GCS 15; breathing is even and unlabored on room air. Gait is steady. Unknown falls. Addiction Problem Abdominal Pain HISTORY OF PRESENT ILLNESS (Location/Symptom, Timing/Onset, Context/Setting, Quality, Duration, Modifying Factors, Severity) Note limiting factors. I wore appropriate PPE for the entirety of this encounter. HPI this is a 38-year-old male with past medical history of severe alcohol use disorder, recurrent pancreatitis, hypertension and seizures who presents to the emergency department due to concerns forabdominal pain and desire for detox. He states he drinks roughly 1 gallon of 80 proof alcohol daily. His last drink was just prior to arrival. He recently was admitted with acute pancreatitis and at t hat time was not interested in detox. He states he is most concerned about developing panic attacks. He has no additional complaints or concerns. Nursing Notes were reviewed. Limitations to history: None Outside historians: None REVIEW OF SYSTEMS Review of Systems Pertinent positives and negatives as per HPI. PAST MEDICAL HISTORY Past Medical History: Diagnosis Date Addiction to drug ([facility]) (HCC) Alcohol abuse Alcohol withdrawal syndrome without complication ([facility]) 06/27/2022 Alcohol withdrawal with inpatient treatment, uncomplicated ([facility]) 03/15/2022 GERD (gastroesophageal reflux disease) History of pancreatitis 01/07/2023 Hypertension Pancreatitis Seizures ([facility]) SVT (supraventricular tachycardia) ([facility]) Tourette syndrome SURGICAL HISTORY Past Surgical History: Procedure Laterality Date APPENDECTOMY CURRENT MEDICATIONS Current Discharge Medication List CONTINUE these medications which have NOT CHANGED Details cloNIDine (Catapres) 0.1 MG tablet Take 0.1 mg by mouth 2 times daily. doxylamine (Unisom) 25 MG tablet Take 1 tablet (25 mg) by mouth Nightly as needed for sleep. Qty: 30 tablet, Refills: 0 folic acid (Folvite) 1 MG tablet Take 1 tablet (1 mg) by mouth daily. Qty: 30 tablet, Refills: 1 hydrOXYzine HCl (Atarax) 50 MG tablet Take 1 tablet (50 mg) by mouth every 8 hours as needed for itching. Qty: 90 tablet, Refills: 0 metoprolol succinate XL (Toprol-XL) 50 MG 24 hr tablet Take 1 tablet (50 mg) by mouth daily. Do notcrush or chew. Qty: 30 tablet, Refills: 1 pantoprazole (ProtoNix) 40 MG EC tablet Take 1 tablet (40 mg) by mouth 2 times daily (before meals). Do not crush, chew, or split. Qty: 60 tablet, Refills: 0 risperiDONE (RisperDAL) 0.5 MG tablet Take 2 tablets (1 mg) by mouth 2 times daily. Qty: 60 tablet, Refills: 1 thiamine (Vitamin B1) 100 MG tablet Take 1 tablet (100 mg) by mouth daily. Qty: 30 tablet, Refills: 1 venlafaxine XR (Effexor XR) 75 MG 24 hr capsule Take 1 capsule (75 mg) by mouth daily (with breakfast). Do not crush or chew. Qty: 30 capsule, Refills: 1 ALLERGIES Patient has no known allergies. FAMILY HISTORY Family History Problem Relation Name Age of Onset No Known Problems Mother No Known Problems Father SOCIAL HISTORY Social History Socioeconomic History Marital status: Single Tobacco Use Smoking status: Every Day Current packs/day: 1.00 Types: Cigarettes Smokeless tobacco: Never Vaping Use Vaping status: Never Used Substance and Sexual Activity Alcohol use: Yes Comment: 03/16 vodka daily Drug use: Not Currently Types: Cocaine, Methamphetamines, Oxycodone, Fentanyl, Heroin, Benzodiazepines Sexual activity: Not Currently Social Drivers of Health Financial Resource Strain: Low Risk (02/05/2024) Overall Financial Resource Strain (CARDIA) Difficulty of Paying Living Expenses: Not hard at all Recent Concern: Financial Resource Strain - Medium Risk (12/14/2023) Overall Financial Resource Strain (CARDIA) Difficulty of Paying Living Expenses: Somewhat hard Food Insecurity: No Food Insecurity (04/04/2024) Hunger Vital Sign Worried About Running Out of Food in the Last Year: Never true Ran Out of Food in the Last Year: Never true Transportation Needs: No Transportation Needs (04/04/2024) PRAPARE - Transportation Lack of Transportation (Medical): No Lack of Transportation (Non-Medical): No Physical Activity: Inactive (02/05/2024) Exercise Vital Sign Days of Exercise per Week: 0 days Minutes of Exercise per Session: 0 min Stress: Stress Concern Present (02/05/2024) [employer] - Occupational Stress Questionnaire Feeling of Stress : To some extent Social Connections: Socially Isolated (02/05/2024) Social Connection and Isolation Panel [NHANES] Frequency of Communication with Friends and Family: More than three times a week Frequency of Social Gatherings with Friends and Family: More than three times a week Attends [employer] Services: Never Active Member of Clubs or Organizations: No Attends Club or Organization Meetings: Never Marital Status: Never Intimate Partner Violence: Not At Risk (04/16/2024) Humiliation, Afraid, Rape, and Kick questionnaire Fear of Current or Ex-Partner: No Emotionally Abused: No Physically Abused: No Sexually Abused: No Housing Stability: Low Risk (04/04/2024) Housing Stability Vital Sign Unable to Pay for Housing in the Last Year: No Number of Times Moved in the Last Year: 0 Homeless in the Last Year: No Recent Concern: Housing Stability - High Risk (02/05/2024) Housing Stability Vital Sign Unable to Pay for Housing in the Last Year: Patient unable to answer Number of Times Moved in the Last Year: 0 Homeless in the Last Year: Yes SCREENINGS PHYSICAL EXAM ED Triage Vitals [04/16/24 1653] Temp Heart Rate Resp BP 37.7 C (99.9 F) 103 22 (!) 147/92 SpO2 Temp Source Heart Rate Source Patient Position 96 % Temporal Monitor -- BP Location FiO2 (%) -- -- PE: GENERAL APPEARANCE: Awake and alert. Cooperative. No acute distress. HEAD: Normocephalic. Atraumatic. EYES: EOM's grossly intact. Sclera anicteric. ENT: Mucous membranes are moist. Tolerates saliva. No trismus. NECK: Supple. No meningismus. Trachea midline. HEART: RRR. Radial pulses 2+. LUNGS: Respirations unlabored. CTAB ABDOMEN: Soft. Non-tender. No guarding or rebound. BACK: Atraumatic. No midline tenderness, step offs or deformities. No CVA tenderness. EXTREMITIES: No acute deformities. Full ROM in all 4 extremities. No numbness or paresthesias. Pulses intact. Capillary refill <2 sec. SKIN: Warm and dry. NEUROLOGICAL: No gross facial drooping. Moves all 4 extremities spontaneously. PSYCHIATRIC: Normal mood. DIAGNOSTIC RESULTS Procedures/EKG: EKG read per attending as applicable RADIOLOGY (Per Emergency Physician): Interpretation per the Radiologist below, if available at the time of this note: CT abdomen pelvis wo IV contrast Final Result 1. Findings compatible with pancreatitis, mildly increased in the interval. Correlation with appropriate laboratory values and follow-up suggested. 2. Hepatomegaly and hepatic steatosis. Report Dictated on Electronically Signed By: Paul Plata MD Electronically Signed Date/Time: 04/16/2024 6:57 PM EST ED BEDSIDE ULTRASOUND: Performed by ED Physician - none LABS: Labs Reviewed SARS-COV-2 ANTIGEN - Abnormal Result Value SARS-CoV-2 Antigen Positive (*) CBC WITH AUTO DIFFERENTIAL - Abnormal Auto WBC 7.5 RBC 5.07 Hemoglobin 14.9 Hematocrit 45.4 MCV 89.5 MCH 29.4 MCHC 32.8 RDW 16.7 (*) Platelets 311 MPV 9.6 nRBC 0.0 Neutrophils Relative 46.4 Lymphocytes Relative 47.3 (*) Monocytes Relative 4.1 (*) Eosinophils Relative 1.2 Basophils Relative 0.7 Immature Grans % 0.3 Neutrophils Absolute 3.5 Lymphocytes Absolute 3.5 Monocytes Absolute 0.3 Eosinophils Absolute 0.1 Basophils Absolute 0.1 Immature Grans Absolute 0.0 COMPREHENSIVE METABOLIC PANEL - Abnormal SODIUM 141 POTASSIUM 3.8 CHLORIDE 103 CARBON DIOXIDE 22 ANION GAP 16 (*) UREA NITROGEN 6 (*) CREATININE 0.76 GLUCOSE 151 (*) CALCIUM 8.8 AST (SGOT) 635 (*) ALT 197 (*) ALKALINE PHOSPHATASE 234 (*) ALBUMIN 4.4 BILIRUBIN, TOTAL 1.3 (*) TOTAL PROTEIN 8.1 eGFR >90.0 ETHANOL - Abnormal ETHANOL IN SER/PLAS 331 (*) Narrative: 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 NOTE: This result is for medical treatment only. Analysis performed using non- forensic procedures. LIPASE - Abnormal LIPASE 135 (*) LACTIC ACID WITH REFLEX - Abnormal LACTIC ACID 4.0 (*) LACTIC ACID WITH REFLEX - Normal LACTIC ACID 2.2 DRUGS OF ABUSE AMPHETAMINE SCREEN Positive BARBITURATES SCREEN Negative BENZODIAZEPINE SCREEN Negative COCAINE METAB. SCREEN Negative METHADONE SCREEN Negative OPIATES SCREEN Negative OXYCODONE SCREEN Negative PHENCYCLIDINE SCREEN Negative FENTANYL SCREEN, UR QUAL Positive Narrative: The expected value for all of the drugs listed above is Negative. The following drugs or drug groups have been screened for by Immunoassay at the following thresholds: Amphetamine class (1000 ng/mL) Barbiturates (200 ng/mL) Benzodiazepines (200 ng/mL) Cocaine (300 ng/mL) Methadone (300 ng/mL) Opiates (300 ng/mL) Oxycodone (100 ng/mL) PCP (25 ng/mL) Fentanyl (1.0 ng/ml) NOTE: These results are for medical treatment only. Analysis performed using non-forensic procedures. POSITIVE results are NOT confirmed by a more specific alternative method unless requested. If confirmation is needed, request confirmation under separateorder. COMPREHENSIVE METABOLIC PANEL MAGNESIUM CBC (HEMOGRAM) LIPASE LACTIC ACID WITH REFLEX All other labs were within normal range or not returned as of this dictation. EMERGENCY DEPARTMENT COURSE and DIFFERENTIAL DIAGNOSIS/MDM: Vitals: Vitals: 04/16/24 2117 04/16/24 2325 04/16/24 23204/17/24 0058 BP: (!) 150/109 142/88 BP Location: Right arm Pulse: (!) 120 (!) 127 105 Resp: 16 20 Temp: 37 C (98.6 F) 36.9 C (98.5 F) TempSrc: Temporal Temporal SpO2: 98% 94% 93% Weight: 111 kg (245 lb) Height: 1.854 m (6' 1) MDM: See HPI above. Patient is a 38-year-old male with past medical history as described above who presents to the Emergency Department due to a desire for alcohol detox and abdominal pain. The patient was recently mated purely for abdominal pain at the end of March or was found to have acute pancreatitis. Given the patient's reproducible tenderness in the epigastrium with significant alcohol use. Concern for an additional bout of acute on chronic pancreatitis. Additionally there were some concern for possible sequela of prior episodes of pancreatitis including a pseudocyst. CT of his abdomen pelvis demonstrated acute pancreatitis, marginally worse from prior. His lactic acid was noted to be 4. He was given 2 mg of IV Ativan and placed on CIWA protocol due to high concern for development of withdrawal symptoms. Given the patient's complex medical needs we did not feel he would be appropriate for for direct admission to the detox unit. His case was discussed with the admitting hospitalist who agreed to admit the patient for acute on chronic pancreatitis and detox consult. Please see their documentation for the remainder of the patient's hospital course and ultimate disposition. Diagnoses as of 04/17/24 0128 Acute recurrent pancreatitis Medications folic acid (Folvite) tablet 1 mg (1 mg Oral Given 04/16/241823) LORazepam (Ativan) tablet 1 mg (1 mg Oral Given 04/16/242346) Or LORazepam (Ativan) injection 1 mg ( IntraVENous See Alternative 04/16/242346) Or LORazepam (Ativan) tablet 2 mg ( Oral See Alternative 04/16/242346) Or LORazepam (Ativan) injection 2 mg ( IntraVENous See Alternative 04/16/242346) Or LORazepam (Ativan) tablet 3 mg ( Oral See Alternative 04/16/242346) Or LORazepam (Ativan) injection 3 mg ( IntraVENous See Alternative 04/16/242346) Or LORazepam (Ativan) tablet 4 mg ( Oral See Alternative 04/16/242346) Or LORazepam (Ativan) injection 4 mg ( IntraVENous See Alternative 04/16/242346) thiamine (Vitamin B1) tablet 100 mg (has no administration in time range) venlafaxine XR (Effexor XR) 24 hr capsule 75 mg (has no administration in time range) risperiDONE (RisperDAL) tablet 1 mg (1 mg Oral Given 04/16/242137) pantoprazole (ProtoNix) EC tablet 40 mg (has no administration in time range) metoprolol succinate XL (Toprol-XL) 24 hr tablet 50 mg (has no administration in time range) cloNIDine (Catapres) tablet 0.1 mg (has no administration in time range) potassium chloride CR (Klor-Con M10) ER tablet 40 mEq (has no administration in time range) acetaminophen (Tylenol) tablet 650 mg (650 mg Oral Not Given 04/16/242130) Or acetaminophen (Tylenol) suppository 650 mg ( Rectal See Alternative 04/16/242130) albuterol 108 (90 Base) MCG/ACT inhaler 2 puff (has no administration in time range) guaiFENesin-dextromethorphan (Robitussin DM) 100-10 MG/5ML syrup 5 mL (has no administration in time range) gabapentin (Neurontin) capsule 300 mg (has no administration in time range) hydrOXYzine pamoate (Vistaril) capsule 50 mg (has no administration in time range) sodium chloride 0.9 % infusion (75 mL/hr IntraVENous Rate/Dose Verify 04/16/242333) LORazepam (Ativan) injection 2 mg (has no administration in time range) naloxone (Narcan) injection 0.4 mg (has no administration in time range) HYDROmorphone (Dilaudid) injection 0.5 mg (0.5 mg IntraVENous Given 04/17/2456) ondansetron (Zofran) injection 4 mg (4 mg IntraVENous Given 04/17/2456) LORazepam (Ativan) injection 2 mg (2 mg IntraVENous Given 04/16/241823) sodium chloride 0.9 % bolus 1,000 mL (0 mL IntraVENous Stopped 04/16/241945) thiamine (Vitamin B1) tablet 100 mg (100 mg Oral Given 04/16/241823) PROCEDURES: Unless otherwise noted below, none Procedures FINAL IMPRESSION 1. Acute recurrent pancreatitis DISPOSITION Admit 04/16/2024 07:31:12 PM PATIENT REFERRED TO: No follow-up provider specified. DISCHARGE MEDICATIONS: Current Discharge Medication List (Comment: Please note this report has been produced using speech recognition software and may contain errors related to that system including errors in grammar, punctuation, and spelling, as well as words and phrases that may be inappropriate. If there are any questions or concerns please feel freeto contact the dictating provider for clarification.) Adrian Silva MD (electronically signed) Emergency Medicine Provider Adrian Silva MD Resident 04/17/24 0130 Cosigned by Nancy Sultana DO at 04/18/2024 1:05 PM EDT [id number] Hospital course Narrative* Paulino Shelton MD - 04/06/2024 1:16 PM EST Hospitalist Discharge Summary Roro Valdivia : 1985 Admit date: 04/04/2024 Discharge date: 04/06/2024 Admitting Physician: Paulino Shelton MD Primary Care Physician: Tam Hughes DO Visit Status: ADMIT Code Status: Prior BRIEF HOSPITAL COURSE: Roro is a 38 y.o. male with past medical history below who presents with chief complaint listed above. Patient presents to the ER with complaints of abdominal pain. Symptoms located in the epigastricregion and started last night. Occurs intermittently with associated nausea and vomiting. History of alcohol use. Came to the ER for further evaluation. In the ED, BP 169/113, heart rate 104, respirations 16, temperature 97.9 F, SpO2 99%. Labs are consistent with a WBC of 5.9, lactic acid 2.6, anion gap 14, CO2 21, alk phos 183, lipase 101, AST 258, ALT 166, ethanol 222, urine drug screen positive for amphetamines and opioids. CT abdomen pelvis consistent with mild peripancreatic fat stranding and edema consistent with acute mild pancreatitis. Started on Ativan and IV fluid resuscitation. Admitted to the service for further evaluation. Started on aggressive IV fluid resuscitation with supportive care measures. Diet advanced as tolerated and was able to tolerate regular diet on day of discharge. Placed on CIWA protocol with thiamine and folate. Given Ativan as needed. Patient did not want discuss MAT or aftercare with addiction med. Discharged home in stable condition Acute, acute on chronic, unstable/uncontrolled chronic problems/diagnoses: Acute pancreatitis Severe alcohol use disorder NAGMA Lactic acidosis Stable chronic problems affecting care, new non-acute diagnoses: History of Tourette's syndrome Alcohol use disorder. History of seizures HTN HLD History of SVT GERD Class III obesity- 33 Past Medical History: Diagnosis Date Addiction to drug ([facility]) ([facility]) Alcohol abuse Alcohol withdrawal syndrome without complication ([facility]) 06/27/2022 Alcohol withdrawal with inpatient treatment, uncomplicated ([facility]) 03/15/2022 GERD (gastroesophageal reflux disease) History of pancreatitis 01/07/2023 Hypertension Pancreatitis Seizures ([facility]) SVT (supraventricular tachycardia) ([facility]) Tourette syndrome Procedures: None Hospital Course: See discharge diagnoses list above and medication adjustments below in med rec.Thepatient is discharged in improved and stable condition. Consults: IP CONSULT TO ADDICTION MEDICINE IP CONSULT TO GI Discharge Instructions: Diet: Dietary Orders (From admission, onward) Start Ordered 04/06/24 1106 Adult diet Regular Diet effective now Question: Diet type Answer: Regular 04/06/24 1106 Activity: as tolerated Recommended Outpatient Tests: Disposition: Patient discharged in stable condition to Home. Spent 44 min discharging the patient and coming up with patient discharge plan. Vitals: BP 107/68 Pulse 67 Temp 37.1 C (98.8 F) (Tympanic) Resp 16 Ht 6' 1 (1.854 m) Wt 245 lb (111 kg) SpO2 96% BMI 32.32 kg/m Pulse Ox: SpO2 Av.8 % Min: 94 % Max: 98 % Supplemental O2: Physical Exam Constitutional: Appearance: He is obese. Cardiovascular: Rate and Rhythm: Normal rate. Heart sounds: No murmur heard. Pulmonary: Effort: No respiratory distress. Breath sounds: No wheezing. Abdominal: General: There is no distension. Tenderness: There is no abdominal tenderness. Musculoskeletal: General: No swelling. Neurological: Mental Status: Mental status is at baseline. LABS: Recent Labs 04/04/24 0436 04/05/24 0339 04/06/24 0244 NA 137 134* 138 K 3.5 4.1 4.0 CL 102 104 111* CO2 21* 21* 21* BUN 4* 3* <3* CREATININE 0.72 0.66* 0.57* GLUCOSE 150* 102* 102* CALCIUM 9.3 8.5 8.2* Recent Labs 04/04/24 0436 04/05/24 0339 04/06/24 0244 WBC 5.9 3.5* 3.2* RBC 5.11 4.44 3.92* HGB 15.0 13.0 11.6* HCT 44.7 40.1 36.0* MCV 87.5 90.3 91.8 MCH 29.4 29.3 29.6 MCHC 33.6 32.4 32.2 RDW 15.3* 15.1* 15.0 PLT 260 153 152 MPV 9.8 10.0 10.6 Discharge Medications: Medication List ASK your doctor about these medications cloNIDine 0.1 MG tablet Commonly known as: Catapres doxylamine 25 MG tablet Commonly known as: Unisom Take 1 tablet (25 mg) by mouth Nightly as needed for sleep. hydrOXYzine HCl 50 MG tablet Commonly known as: Atarax Take 1 tablet (50 mg) by mouth every 8 hours as needed for itching. metoprolol succinate XL 50 MG 24 hr tablet Commonly known as: Toprol-XL Take 1 tablet (50 mg) by mouth daily. Do not crush or chew. pantoprazole 40 MG EC tablet Commonly known as: ProtoNix Take 1 tablet (40 mg) by mouth 2 times daily (before meals). Do not crush, chew, or split. risperiDONE 0.5 MG tablet Commonly known as: RisperDAL Take 2 tablets (1 mg) by mouth 2 times daily. venlafaxine XR 75 MG 24 hr capsule Commonly known as: Effexor XR Take 1 capsule (75 mg) by mouth daily (with breakfast). Do not crush or chew. Recommended Follow-up: No follow-up provider specified. Complexity of Follow up: [] Moderate Complexity: follow up within 7-14 calendar days (14813) [x] Severe Complexity: follow up within 7 calendar days (66402) Follow up Testing, Pending results or Referrals at Transitional Care Visit: [x] yes [] no Instructions to MA: Please call patient on day after discharge (must document patient contacted within 2 business days of discharge). Follow up questions for MA: 1. Did you get medications filled and taking them as instructed from discharge? 2. Are you following your discharge instructions from your hospital stay? 3. Please confirm patient is scheduled for a follow up appointment within the above time frame. Signed: Paulino Shelton MD Division of Hospitalist Medicine [employer] 04/06/2024, 1:16 PM documented in this [facility]02-26-2025 History of Present illness Narrative* Dov Vanegas MD - 04/06/2024 9:08 AM EST Images from the original note were not included. ADDICTION MEDICINE PROGRESS NOTE Patient: Roro Valdivia __ Problem List: Principal Problem: Alcohol-induced acute pancreatitis, unspecified complication status Active Problems: Pancreatitis, unspecified pancreatitis type SUBJECTIVE Chief Complaint Patient presents with Abdominal Pain 1 day worsening Last 4 CIWA scores per RN assessments 10 - 11 - 9 - 4 CIWA on exam: 0 Ativan given in last 24 hours: Ativan 1mg PO / IV - 4 doses Opioids given in last 24 hours: Morphine 2mg IV - 5 doses Oxycodone 5mg dosing - 3 doses Interim History Seen and examined. Denies any complaints. Notes he slept well. Is eating and drinking fine. Not interested in alcohol cessation. Not interested in MAT or aftercare. Review of Systems A 14 system ROS was collected and is negative unless otherwise noted above. OBJECTIVE Vitals Vitals: 04/05/24 2005 04/06/24 0030 04/06/24 0219 04/06/24 0834 BP: 111/80 100/53 112/72 100/60 BP Location: Left arm Right arm Left arm Right arm Patient Position: Sitting Lying Lying Lying Pulse: 96 67 77 52 Resp: 18 18 Temp: 36.3 C (97.4 F) 36.7 C (98.1 F) 36.7 C (98 F) 36.3 C (97.4 F) TempSrc: Temporal Temporal Temporal Temporal SpO2: 96% 95% 94% 98% Weight: Height: Physical Exam Constitutional: Appearance: Normal appearance. He is obese. He is not ill-appearing or diaphoretic. HENT: Head: Normocephalic and atraumatic. Nose: Nose normal. Mouth/Throat: Mouth: Mucous membranes are dry. Eyes: Extraocular Movements: Extraocular movements intact. Pupils: Pupils are equal, round, and reactive to light. Cardiovascular: Rate and Rhythm: Normal rate and regular rhythm. Pulmonary: Effort: Pulmonary effort is normal. No respiratory distress. Abdominal: Palpations: Abdomen is soft. Tenderness: There is no abdominal tenderness. Musculoskeletal: General: No deformity. Normal range of motion. Cervical back: Normal range of motion and neck supple. Skin: General: Skin is warm. Neurological: Mental Status: He is alert and oriented to person, place, and time. Cranial Nerves: No cranial nerve deficit. Psychiatric: Mood and Affect: Mood normal. Behavior: Behavior normal. Medications Home Meds Current Outpatient Medications Medication Instructions cloNIDine (CATAPRES) 0.1 mg, 2 times daily doxylamine (UNISOM) 25 mg, Oral, Nightly PRN hydrOXYzine HCl (ATARAX) 50 mg, Oral, Every 8 hours PRN metoprolol succinate XL (TOPROL-XL) 50 mg, Oral, Daily, Do not crush or chew. pantoprazole (PROTONIX) 40 mg, Oral, 2 times daily before meals, Do not crush, chew, or split. risperiDONE (RISPERDAL) 1 mg, Oral, 2 times daily venlafaxine XR (EFFEXOR XR) 75 mg, Oral, Daily with breakfast, Do not crush or chew. Scheduled Inpatient Meds cloNIDine, 0.1 mg, Oral, Q4H folic acid, 1 mg, Oral, Daily heparin, 5,000 Units, SubCUTAneous, 2 times per day melatonin, 3 mg, Oral, Nightly metoprolol succinate XL, 50 mg, Oral, Daily pantoprazole, 40 mg, Oral, BID AC risperiDONE, 1 mg, Oral, BID thiamine, 100 mg, Oral, Daily venlafaxine XR, 75 mg, Oral, Daily with breakfast PRN Inpatient Meds PRN medications: acetaminophen OR acetaminophen, doxylamine, hydrOXYzine pamoate, LORazepam OR LORazepam OR [DISCONTINUED] LORazepam OR [DISCONTINUED] LORazepam OR [DISCONTINUED] LORazepam OR [DISCONTINUED] LORazepam OR [DISCONTINUED] LORazepam OR [DISCONTINUED] LORazepam, morphine sulfate, naloxone, ondansetron ODT OR ondansetron, oxyCODONE, polyethylene glycol (PEG) 3350 Continuous Inpatient Infusions sodium chloride, 250 mL/hr, Last Rate: 250 mL/hr (04/06/24 0459) Recent Imaging ECG 12 lead Result Date: 04/04/2024 Sinus rhythm LVH by voltage No change compared to previous ekg Electronically Signed On 04-04-2024 14:20:40 EST by Grady Julien ECG 12 lead Result Date: 04/04/2024 Sinus tachycardia No change compared to previous ekg Electronically Signed On 04-04-2024 08:54:10 EST by Grady Julien CT abdomen pelvis w contrast Result Date: 04/04/2024 Patient Name: RORO VALDIVIA : 1985 Date/Time: 04/04/2024 05:20 Procedure: CT ABDOMEN PELVIS W CONTRAST Ordering Provider: BOYD AKASH Reason For Exam: epigastric pain, abnormal LFTs CT ABDOMEN AND PELVIS WITH CONTRAST CLINICALINDICATION: Abdominal pain. TECHNIQUE: Multi-axial 3mm sections through the abdomen and pelvis following 75 mL of Isoview contrast media. No oral contrast was administered. Coronal and sagittal reconstructions were reviewed. Dose reduction was employed with automated exposure control. COMPARISON: January 20, 2024. FINDINGS: Lower thorax: Normal. Stomach: Unremarkable. Liver: Normal size and contours. The liver demonstrates generalized diminished attenuation as compared to the spleen, compatible with hepatic steatosis. No focal lesion. Biliary tree: Unremarkable gallbladder by CT. No biliary dilatation. Spleen: Normal. Adrenals: Normal. Pancreas: Mild peripancreatic fat stranding and edema; correlate with mild acute pancreatitis. No ductal dilation or pancreatic necrosis. Kidneys: Symmetric contrast enhancement without evidence of hydronephrosis. No focal renal lesion is identified. Free air or fluid: None. Mesenteric/retroperitoneal: No adenopathy or inflammation. Aorta: Normal caliber of aorta and bilateral common iliac arteries. Bowel: Post appendectomy. No inflammatory change orbowel dilatation is noted. Urinary bladder: Unremarkable. Abdominal wall/soft tissues: No ventral hernia is evident. Inguinal: No lymphadenopathy. Osseous structures: Unremarkable osseous structures.No suspicious osseous lesion. 1. Mild peripancreatic fat stranding and edema; correlate with mild acute pancreatitis. 2. The liver demonstrates generalized diminished attenuation as compared to the spleen, compatible with hepaticsteatosis. Report Dictated on Electronically Signed By: Doug Parker MD Electronically Signed Date/Time: 04/04/2024 5:54 AM EST Labs Last 24 Hours: Recent Results (from the past 24 hours) CBC auto differential Collection Time: 04/06/24 2:44 AM Result Value Ref Range Auto WBC 3.2 (L) 3.6 - 10.7 10*3/uL RBC 3.92 (L) 4.40 - 5.90 10*6/uL Hemoglobin 11.6 (L) 13.0 - 18.0 g/dL Hematocrit 36.0 (L) 40.0 - 52.0 % MCV 91.8 77.0 - 99.0 fL MCH 29.6 26.0 - 34.0 pg MCHC 32.2 30.5 - 36.0 % RDW 15.0 11.5 - 15.0 % Platelets 152 140 - 440 10*3/uL MPV 10.6 9.0 - 12.7 fL nRBC 0.0 0.0 - 2.0 /100 WBCs Neutrophils Relative 46.5 38.0 - 82.0 % Lymphocytes Relative 45.1 (H) 15.0 - 45.0 % Monocytes Relative 7.2 5.0 - 13.0 % Eosinophils Relative 0.9 0.0 - 6.0 % Basophils Relative 0.3 0.0 - 2.0 % Immature Grans % 0.0 0.0 - 2.0 % Neutrophils Absolute 1.5 (L) 1.8 - 7.5 10*3/uL Lymphocytes Absolute 1.4 1.0 - 4.3 10*3/uL Monocytes Absolute 0.2 0.0 - 0.9 10*3/uL Eosinophils Absolute 0.0 0.0 - 0.5 10*3/uL Basophils Absolute 0.0 0.0 - 0.2 10*3/uL Immature Grans Absolute 0.0 <0.1 10*3/uL Comprehensive metabolic panel Collection Time: 04/06/24 2:44 AM Result Value Ref Range SODIUM 138 136 - 145 mmol/L POTASSIUM 4.0 3.5 - 5.1 mmol/L CHLORIDE 111 (H) 98 - 107 mmol/L CARBON DIOXIDE 21 (L) 22 - 29 mmol/L ANION GAP 6 3 - 13 mmol/L UREA NITROGEN <3 (L) 8 - 21 mg/dL CREATININE 0.57 (L) 0.72 - 1.25 mg/dL GLUCOSE 102 (H) 74 - 100 mg/dL CALCIUM 8.2 (L) 8.4 - 10.2 mg/dL AST (SGOT) 102 (H) <34 U/L ALT 72 (H) <40 U/L ALKALINE PHOSPHATASE 127 40 - 150 U/L ALBUMIN 3.0 (L) 3.5 - 5.0 g/dL BILIRUBIN, TOTAL 1.5 (H) <1.2 mg/dL TOTAL PROTEIN 5.7 (L) 6.4 - 8.3 g/dL eGFR >90.0 >60.0 mL/min/1.73m*2 ASSESSMENT & PLAN Severe OUD, previously on suboxone Severe Alcohol Use Disorder Severe BZD use disorder Severe Stimulant use disorder Nicotine Use disorder Counseled patient on biopsychosocial consequences of substance use. Encouraged professional chemical dependency treatment. Discussed MAT including Acamprosate, Disulfiram, Naltrexone and Vivitrol Discussed MAT options including Suboxone, Brixadi, Sublocade and methadone. Discussed aftercare including AA/NA, 1:1 counseling, IOP and residential treatment Encouraged 12 step meeting attendance. Patient returned to [facility] and self discontinued suboxone Follow up plan for addiction management discussed with patient: Patient does not wish to discuss MAT or aftercare. States he will call his addiction provider at [facility] to schedule follow up Has no intent to quit drinking Alcohol withdrawal - resolved mAMP withdrawal - resolved Opioids withdrawal - resolved Last use of All substances was yesterday. Ativan 1mg Q1H PO / IV PRN for CIWA score 9 or greater. Last Ativan 0328 this AM. Clonidine 0.1mg PO Q4H with holding parameters. Folate / Thiamine replacement CIWA scores per unit protocol. PRN medications for withdrawal symptom management added. MDD RODRIGUEZ Tourette Disorder No SI/HI or AVH Pt states he stopped taking his medications when he started using again PLAN: Continue Risperidone 1mg BID Continue Effexor to 75mg PO Daily. Vistaril 50mg PO Q8H PRN for anxety Disposition: Per primary team, pending WDS resolved. Medical stabilization per primary team Labs/tests/tasks to review: N/A. Nurse Ob to coordinate care with: N/A. A total of 35 minutes were spent reviewing the patient's records, evaluating the patient, entering orders, coordinating care with the treatment team, and creating this note. A total of 35 minutes were spent reviewing the patient's records, evaluating the patient, entering orders, coordinating care with the treatment team, and creating this note. * Lyly Jason - 04/06/2024 7:42 AM EST Nutrition rescreen complete. Pt assigned a level one for nutrition care. * Guillermo Richardson MD - 04/05/2024 2:58 PM EST Images from the original note were not included. SUBJECTIVE: No events overnight. Patient tolerated clear liquid diet. Patient reports abdominal pain is slowly improving. Denies any nausea or vomiting. CURRENT MEDICATIONS: Current Facility-Administered Medications: acetaminophen (Tylenol) tablet 650 mg, 650 mg, Oral, q6h PRN OR acetaminophen (Tylenol) suppository 650 mg, 650 mg, Rectal, q6h PRN, Christopher Arias MD cloNIDine (Catapres) tablet 0.1 mg, 0.1 mg, Oral, Q4H, Dov Vanegas MD, 0.1 mg at 04/05/24 1227 doxylamine (Unisom) tablet 25 mg, 25 mg, Oral, Nightly PRN, Christopher Arias MD folic acid (Folvite) tablet 1 mg, 1 mg, Oral, Daily, Christopher Arias MD, 1 mg at 04/05/24 0823 heparin injection 5,000 Units, 5,000 Units, SubCUTAneous, 2 times per day, Christopher Arias MD, 5,000 Units at 04/05/24 0823 hydrOXYzine pamoate (Vistaril) capsule 50 mg, 50 mg, Oral, q8h PRN, Christopher Arias MD LORazepam (Ativan) tablet 1 mg, 1 mg, Oral, q1h PRN, 1 mg at 04/05/24 1227 OR LORazepam (Ativan) injection 1 mg, 1 mg, IntraVENous, q1h PRN OR [DISCONTINUED] LORazepam (Ativan) tablet 2 mg, 2mg, Oral, q1h PRN OR [DISCONTINUED] LORazepam (Ativan) injection 2 mg, 2 mg, IntraVENous, q1h PRN OR [DISCONTINUED] LORazepam (Ativan) tablet 3 mg, 3 mg, Oral, q1h PRN OR [DISCONTINUED] LORazepam (Ativan) injection 3 mg, 3 mg, IntraVENous, q1h PRN OR [DISCONTINUED] LORazepam (Ativan) tablet 4 mg, 4 mg, Oral, q1h PRN OR [DISCONTINUED] LORazepam (Ativan) injection 4 mg, 4 mg, IntraVENous, q1h PRN, Christopher Arias MD melatonin tablet 3 mg, 3 mg, Oral, Nightly, Christopher Arias MD, 3 mg at 04/04/24 2020 metoprolol succinate XL (Toprol-XL) 24 hr tablet 50 mg, 50 mg, Oral, Daily, Christopher Arias MD, 50 mg at 04/05/24 0822 morphine injection 2 mg, 2 mg, IntraVENous, q4h PRN, Paulino Shelton MD, 2 mg at 04/05/24 1227 naloxone (Narcan) injection 0.4 mg, 0.4 mg, IntraVENous, q5 min PRN, Paulino Shelton MD ondansetron ODT (Zofran-ODT) disintegrating tablet 4 mg, 4 mg, Oral, q8h PRN OR ondansetron (Zofran) injection 4 mg, 4 mg, IntraVENous, q6h PRN, Christopher Arias MD, 4 mg at 04/04/24 0956 oxyCODONE (Roxicodone) immediate release tablet 5 mg, 5 mg, Oral, q6h PRN, Paulino Shelton MD, 5 mg at 04/05/24 0822 pantoprazole (ProtoNix) EC tablet 40 mg, 40 mg, Oral, BID AC, Christopher Arias MD, 40 mg at 04/05/24 0508 polyethylene glycol (PEG) 3350 (Miralax) packet 17 g, 17 g, Oral, Daily PRN, Christopher Arias MD risperiDONE (RisperDAL) tablet 1 mg, 1 mg, Oral, BID, Christopher Arias MD, 1 mg at 04/05/24 0822 sodium chloride 0.9 % infusion, 250 mL/hr, IntraVENous, Continuous, Paulino Shelton MD, Last Rate: 250 mL/hr at 04/05/24 1239, 250 mL/hr at 04/05/24 1239 thiamine (Vitamin B1) tablet 100 mg, 100 mg, Oral, Daily, Christopher Arias MD, 100 mg at 822 venlafaxine XR (Effexor XR) 24 hr capsule 75 mg, 75 mg, Oral, Daily with breakfast, Christopher Arias MD, 75 mg at 04/05/24 0822 OBJECTIVE VITALS: BP 136/81 (BP Location: Left arm, Patient Position: Lying) Pulse 65 Temp 36.3 C (97.4 F) (Temporal) Resp 18 Ht 6' 1 (1.854 m) Wt 245 lb (111 kg) SpO2 96% BMI 32.32 kg/m TEMPERATURE: Current - Temp: 36.3 C (97.4 F); Max - Temp Av.6 C (97.9 F) Min: 36.3 C (97.4 F) Max: 37.2 C (98.9 F) RESPIRATIONS RANGE: Resp Av Min: 18 Max: 20 PULSE RANGE: Pulse Av.8 Min: 65 Max: 79 BLOOD PRESSURE RANGE: Systolic (24hrs), Av , Min:136 , Max:156 ; Diastolic (24hrs), Av, Min:81, Max:100 PULSE OXIMETRY RANGE: SpO2 Av.8 % Min: 95 % Max: 96 % 24HR INTAKE/OUTPUT: Intake/Output Summary (Last 24 hours) at 04/05/2024 1458 Last data filed at 04/05/2024 1233 Gross per 24 hour Intake 5183.33 ml Output -- Net 5183.33 ml GENERAL: Pleasant and NAD. HEENT: NCAT, PERRLA, EOMI, Scleral anicteric. Oropharhynx clear with no erythema or exudate. Neck supple, no cervical LAD or thyromegaly. CV: RRR, NL S1/S2, no murmurs. Distal pulses palpable and equal b/l. LUNGS: CTA b/l. Normal percussion and palpation. No W/R/R. ABD: + BS, soft, non-tender and non-distended. No hepatosplenomegaly. No mass felt. No rebound or guarding. EXT: No C/C/E. No muscle atrophy. SKIN: No skin lesion or breakdown. NEURO: A&O x 3, CN II-XII grossly intact. No asterixis. Laboratory Data: CBC: Results from last 7 days Lab Units 04/05/24 0339 04/04/24435 WBC AUTO 10*3/uL 3.5* 5.9 HEMOGLOBIN g/dL 13.0 15.0 HEMATOCRIT % 40.1 44.7 PLATELETS 10*3/uL 153 260 CMP: Recent Labs 04/04/24 0436 04/05/24338 NA 137 134* K 3.5 4.1 CL 102 104 CO2 21* 21* BUN 4* 3* CREATININE 0.72 0.66* GLUCOSE 150* 102* CALCIUM 9.3 8.5 HEPATIC: Results from last 7 days Lab Units 04/05/24 0339 04/04/24 043 ALK PHOS U/L 140 183* BILIRUBIN TOTAL mg/dL 1.6* 1.0 PROTEIN TOTAL g/dL 6.4 8.0 ALT U/L 104* 166* AST U/L 149* 258* LIPASE/AMYLASE: Recent Labs 04/04/24435 LIPASE 101* LACTATE: No lab exists for component: LACTA TROPONIN: No results for input(s): TROPONINI in the last 72 hours. LIPIDS: No results for input(s): CHOL, HDL in the last 72 hours. No lab exists for component: LDLCALCU INR: Recent Labs 04/04/24 0955 INR 1.1 NH3:No results for input(s): AMMONIA in the last 72 hours. BNP: No results for input(s): BNP in the last 72 hours. Imaging: Ct ABD/PELV: IMPRESSION: 1. Mild peripancreatic fat stranding and edema; correlate with mild acute pancreatitis. 2. The liver demonstrates generalized diminished attenuation as compared to the spleen, compatible with hepatic steatosis. ASSESSMENT AND PLAN Hypertension Alcohol abuse: -Encourage complete cessation of all alcohol -CIWA -Thiamine and folic acid -Addiction medicine following 3. Elevated LFTs: Trending down -Monitor LFTs 4. Acute pancreatitis: Likely related to alcohol abuse. CT scan shows mild acute pancreatitis. On admission abdominal pain was 10 out of 10. Today it is 4-5 out of 10. Tolerating oral intake. -Analgesics and antiemetics per primary service -Supportive therapies per primary service -Monitor LFTs -Advance diet as tolerated -Encourage complete cessation of all alcohol. Patient likely would benefit from inpatient alcohol rehab if available. No GI interventions warranted at this time. GI will follow peripherally. Please feel free to reach out with any questions or concerns or if pancreatitis worsens. (Comment: Please note this report has been produced using speech recognition software and may contain errors related to that system including errors in grammar, punctuation, and spelling, as well as words and phrases that may be inappropriate. If there are any questions or concerns please feel freeto contact the dictating provider for clarification.) * Nicola Patino RRT - 04/05/2024 1:27 PM EST Patient declined smoking cessation counseling. Accepting of handout with contact information for future reference. * Paulino Shelton MD - 04/05/2024 10:47 AM EST Hospitalist Progress Note 04/05/2024 Subjective: Admit Date: 04/04/2024 PCP: Tam Hughes DO Room#: H4-760/F6-207 A BRIEF HOSPITAL COURSE: Roro is a 38 y.o. male with past medical history below who presents with chief complaint listed above. Patient presents to the ER with complaints of abdominal pain. Symptoms located in the epigastricregion and started last night. Occurs intermittently with associated nausea and vomiting. History of alcohol use. Came to the ER for further evaluation. In the ED, BP 169/113, heart rate 104, respirations 16, temperature 97.9 F, SpO2 99%. Labs are consistent with a WBC of 5.9, lactic acid 2.6, anion gap 14, CO2 21, alk phos 183, lipase 101, AST 258, ALT 166, ethanol 222, urine drug screen positive for amphetamines and opioids. CT abdomen pelvis consistent with mild peripancreatic fat stranding and edema consistent with acute mild pancreatitis. Started on Ativan and IV fluid resuscitation. Admitted to the service for further evaluation. Interval History: No overnight issues. Feels better. Tolerating CLD. Case and plan discussed with patient and bedsidenurse. All questions answered. Adult diet Clear liquid 24HR INTAKE/OUTPUT: Intake/Output Summary (Last 24 hours) at 04/05/2024 1047 Last data filed at 04/05/2024 0825 Gross per 24 hour Intake 4270 ml Output -- Net 4270 ml Past Medical History: Past Medical History: Diagnosis Date Addiction to drug ([facility]) ([facility]) Alcohol abuse Alcohol withdrawal syndrome without complication ([facility]) 06/27/2022 Alcohol withdrawal with inpatient treatment, uncomplicated ([facility]) 03/15/2022 GERD (gastroesophageal reflux disease) History of pancreatitis 01/07/2023 Hypertension Pancreatitis Seizures ([facility]) SVT (supraventricular tachycardia) ([facility]) Tourette syndrome LABS: CBC: Recent Labs 04/04/24 0436 04/05/24 0339 WBC 5.9 3.5* RBC 5.11 4.44 HGB 15.0 13.0 HCT 44.7 40.1 MCV 87.5 90.3 RDW 15.3* 15.1* PLT 260 153 BMP: Recent Labs 04/04/24 0436 04/05/24 0339 NA 137 134* K 3.5 4.1 CL 102 104 CO2 21* 21* BUN 4* 3* CREATININE 0.72 0.66* GLUCOSE 150* 102* CALCIUM 9.3 8.5 ANIONGAP 14* 9 LIVER PROFILE: Recent Labs 04/04/24 0436 04/05/24 0339 AST 258* 149* ALT 166* 104* BILITOT 1.0 1.6* ALKPHOS 183* 140 PROT 8.0 6.4 PT/INR: Recent Labs 04/04/24 0955 PROTIME 12.8* INR 1.1 CARDIAC ENZYMES: No results for input(s): TROPONINI in the last 72 hours. Procalcitonin: No results found for: PROCAL COVID-19 PCR: No results for input(s): COVID19 in the last 72 hours. Objective: Vitals: BP 136/81 (BP Location: Left arm, Patient Position: Lying) Pulse 65 Temp 36.3 C (97.4 F) (Temporal) Resp 18 Ht 6' 1 (1.854 m) Wt 245 lb (111 kg) SpO2 96% BMI 32.32 kg/m Pulse Ox: SpO2 Av.8 % Min: 95 % Max: 96 % Supplemental O2: Physical Exam Constitutional: Appearance: He is obese. He is not ill-appearing. Cardiovascular: Rate and Rhythm: Normal rate. Heart sounds: No murmur heard. Pulmonary: Effort: No respiratory distress. Breath sounds: No wheezing. Abdominal: General: There is no distension. Tenderness: There is abdominal tenderness. Musculoskeletal: General: No swelling. Neurological: Mental Status: Mental status is at baseline. Medications: Scheduled PRN cloNIDine, 0.1 mg, Oral, Q4H folic acid, 1 mg, Oral, Daily heparin, 5,000 Units, SubCUTAneous, 2 times per day melatonin, 3 mg, Oral, Nightly metoprolol succinate XL, 50 mg, Oral, Daily pantoprazole, 40 mg, Oral, BID AC risperiDONE, 1 mg, Oral, BID thiamine, 100 mg, Oral, Daily venlafaxine XR, 75 mg, Oral, Daily with breakfast PRN medications: acetaminophen OR acetaminophen, doxylamine, hydrOXYzine pamoate, LORazepam OR LORazepam OR [DISCONTINUED] LORazepam OR [DISCONTINUED] LORazepam OR [DISCONTINUED] LORazepam OR [DISCONTINUED] LORazepam OR [DISCONTINUED] LORazepam OR [DISCONTINUED] LORazepam, morphine sulfate, naloxone, ondansetron ODT OR ondansetron, oxyCODONE, polyethylene glycol (PEG) 3350 Continuous sodium chloride, 250 mL/hr, Last Rate: 250 mL/hr (04/05/24 0830) Assessment Data: (CAT1) Reviewed 3 or more notes from different specialty or health system (each=1). (CAT1) Reviewed 3 or more labs/studies ordered by another provider not previously counted (each=1, panels count as 1). (CAT1) Reviewed 3 or more labs/studies previously ordered by me not previously counted (each=1, panels count as 1). (CAT1) Ordered 3 or more new labs and/or studies (each=1, panels count as 1). (LOW: 2x CAT1 or independent historian MOD: 3x CAT1 or 1x CAT3 EXTENSIVE: 3x CAT1 and 1x CAT3) Acute, acute on chronic, unstable/uncontrolled chronic problems/diagnoses: Acute pancreatitis Severe alcohol use disorder NAGMA Lactic acidosis Stable chronic problems affecting care, new non-acute diagnoses: History of Tourette's syndrome Alcohol use disorder. History of seizures HTN HLD History of SVT GERD Class III obesity- 33 Plan As a result of the above findings & factors, the following mgmt was pursued: -Continue on aggressive IV fluid resuscitation, supportive care measures and advance diet as tolerated. Advance to full liquids today. GI following and agrees with current management - ADM following recommends Ativan as needed along with folate and thiamine. Continue CIWA protocol.Patient does not wish to discuss MAT or aftercare at this time. - Discussed with nurse and TCC during IDR's this morning - am labs, replace lytes prn - PT/OT/CM/SW - delirium precautions: increase activity - DVT prophylaxis: enoxaparin and encourage ambulation Complexity: Acute illness or injury posing a threat to life or body function (HIGH). Chronic illness with severe exacerbation, progression, or side effect of tx (HIGH). Risk: Admission to hospital-level care was considered or occurred (HIGH). Advance Directive: Prior Anticipated Discharge - Date - 04/06 - Location - Home - Pending the following - Sx Total time spent (which include face to face and non face to face encounters) : 57 minutes Toxic drug monitoring/narrow therapeutic index drug monitoring : # Drug name : Debranox # Route administered : subq # Method of monitoring : CBC Extended Emergency Contact Information Primary Emergency Contact: Summer Valdivia Mobile Relation: Mother Paulino Shelton MD Division of Hospitalist Medicine [facility] * Dov Vanegas MD - 04/05/2024 8:00 AM EST Images from the original note were not included. ADDICTION MEDICINE PROGRESS NOTE Patient: Roro Valdivia __ Problem List: Principal Problem: Alcohol-induced acute pancreatitis, unspecified complication status Active Problems: Pancreatitis, unspecified pancreatitis type SUBJECTIVE Chief Complaint Patient presents with Abdominal Pain 1 day worsening CIWA scores not conducted by nurse. CIWA score on exam: 0 Interim History NAOE. Notes he slept well. Continues to report abd pain. Clonidine as adjunct helpful for withdrawal and BP. Received 1 dose of Ativan 1mg this AM 0328. Continues on Morphine and Oxycodone for pain. Denies any concerns to me at this time. No SI/HI or AVH. Review of Systems A 14 system ROS was collected and is negative unless otherwise noted above. OBJECTIVE Vitals Vitals: 04/04/24 1949 04/04/24 2334 04/05/24 0330 04/05/24 0806 BP: 156/100 150/95 148/95 136/81 BP Location: Left arm Left arm Left arm Left arm Patient Position: Lying Lying Lying Pulse: 65 66 79 65 Resp: 20 18 Temp: 37.2 C (98.9 F) 36.3 C (97.4 F) 36.5 C (97.7 F) 36.3 C (97.4 F) TempSrc: Temporal Temporal Temporal Temporal SpO2: 95% 96% 96% 96% Weight: Height: Physical Exam Constitutional: Appearance: He is obese. Comments: Remains in his jeans. HENT: Head: Normocephalic and atraumatic. Nose: Congestion present. Mouth/Throat: Mouth: Mucous membranes are dry. Eyes: Extraocular Movements: Extraocular movements intact. Pupils: Pupils are equal, round, and reactive to light. Cardiovascular: Rate and Rhythm: Normal rate and regular rhythm. Pulmonary: Effort: Pulmonary effort is normal. No respiratory distress. Abdominal: Tenderness: There is abdominal tenderness. Musculoskeletal: General: No deformity. Normal range of motion. Cervical back: Normal range of motion and neck supple. Skin: General: Skin is warm and dry. Neurological: Mental Status: He is alert and oriented to person, place, and time. Cranial Nerves: No cranial nerve deficit. Psychiatric: Attention and Perception: He does not perceive auditory or visual hallucinations. Speech: Speech normal. Behavior: Behavior is cooperative. Thought Content: Thought content does not include homicidal or suicidal ideation. Thought content does not include homicidal or suicidal plan. Judgment: Judgment is impulsive and inappropriate. Medications Home Meds Current Outpatient Medications Medication Instructions cloNIDine (CATAPRES) 0.1 mg, 2 times daily doxylamine (UNISOM) 25 mg, Oral, Nightly PRN hydrOXYzine HCl (ATARAX) 50 mg, Oral, Every 8 hours PRN metoprolol succinate XL (TOPROL-XL) 50 mg, Oral, Daily, Do not crush or chew. pantoprazole (PROTONIX) 40 mg, Oral, 2 times daily before meals, Do not crush, chew, or split. risperiDONE (RISPERDAL) 1 mg, Oral, 2 times daily venlafaxine XR (EFFEXOR XR) 75 mg, Oral, Daily with breakfast, Do not crush or chew. Scheduled Inpatient Meds cloNIDine, 0.1 mg, Oral, Q4H folic acid, 1 mg, Oral, Daily heparin, 5,000 Units, SubCUTAneous, 2 times per day melatonin, 3 mg, Oral, Nightly metoprolol succinate XL, 50 mg, Oral, Daily pantoprazole, 40 mg, Oral, BID AC risperiDONE, 1 mg, Oral, BID thiamine, 100 mg, Oral, Daily venlafaxine XR, 75 mg, Oral, Daily with breakfast PRN Inpatient Meds PRN medications: acetaminophen OR acetaminophen, doxylamine, hydrOXYzine pamoate, LORazepam OR LORazepam OR [DISCONTINUED] LORazepam OR [DISCONTINUED] LORazepam OR [DISCONTINUED] LORazepam OR [DISCONTINUED] LORazepam OR [DISCONTINUED] LORazepam OR [DISCONTINUED] LORazepam, morphine sulfate, naloxone, ondansetron ODT OR ondansetron, oxyCODONE, polyethylene glycol (PEG) 3350 Continuous Inpatient Infusions sodium chloride, 250 mL/hr, Last Rate: 250 mL/hr (04/05/24 0830) Recent Imaging ECG 12 lead Result Date: 04/04/2024 Sinus rhythm LVH by voltage No change compared to previous ekg Electronically Signed On 04-04-2024 14:20:40 EST by Grady Julien ECG 12 lead Result Date: 04/04/2024 Sinus tachycardia No change compared to previous ekg Electronically Signed On 04-04-2024 08:54:10 EST by Grady Julien CT abdomen pelvis w contrast Result Date: 04/04/2024 [facility] 1985 [id number] Date/Time: 04/04/2024 05:20 Procedure: CT ABDOMEN PELVIS W CONTRAST Ordering Provider: BOYD AKASH Reason For Exam: epigastric pain, abnormal LFTs CT ABDOMEN AND PELVIS WITH CONTRAST CLINICALINDICATION: Abdominal pain. TECHNIQUE: Multi-axial 3mm sections through the abdomen and pelvis following 75 mL of Isoview contrast media. No oral contrast was administered. Coronal and sagittal reconstructions were reviewed. Dose reduction was employed with automated exposure control. COMPARISON: January 20, 2024. FINDINGS: Lower thorax: Normal. Stomach: Unremarkable. Liver: Normal size and contours. The liver demonstrates generalized diminished attenuation as compared to the spleen, compatible with hepatic steatosis. No focal lesion. Biliary tree: Unremarkable gallbladder by CT. No biliary dilatation. Spleen: Normal. Adrenals: Normal. Pancreas: Mild peripancreatic fat stranding and edema; correlate with mild acute pancreatitis. No ductal dilation or pancreatic necrosis. Kidneys: Symmetric contrast enhancement without evidence of hydronephrosis. No focal renal lesion is identified. Free air or fluid: None. Mesenteric/retroperitoneal: No adenopathy or inflammation. Aorta: Normal caliber of aorta and bilateral common iliac arteries. Bowel: Post appendectomy. No inflammatory change orbowel dilatation is noted. Urinary bladder: Unremarkable. Abdominal wall/soft tissues: No ventral hernia is evident. Inguinal: No lymphadenopathy. Osseous structures: Unremarkable osseous structures.No suspicious osseous lesion. 1. Mild peripancreatic fat stranding and edema; correlate with mild acute pancreatitis. 2. The liver demonstrates generalized diminished attenuation as compared to the spleen, compatible with hepaticsteatosis. Report Dictated on Electronically Signed By: Doug Parker MD Electronically Signed Date/Time: 04/04/2024 5:54 AM EST Labs Last 24 Hours: Recent Results (from the past 24 hours) Lactic acid with reflex Collection Time: 04/04/24 9:21 AM Result Value Ref Range LACTIC ACID 3.0 (H) 0.5 - 2.2 mmol/L PROTIME/INR & PTT Collection Time: 04/04/24 9:55 AM Result Value Ref Range PROTHROMBIN TIME 12.8 (H) 9.0 - 12.0 s INR 1.1 0.9 - 1.1 APTT 27.1 20.0 - 30.5 s Drug screen panel, emergency Collection Time: 04/04/24 10:28 AM Result Value Ref Range AMPHETAMINE SCREEN Positive BARBITURATES SCREEN Negative BENZODIAZEPINE SCREEN Negative COCAINE METAB. SCREEN Negative METHADONE SCREEN Negative OPIATES SCREEN Positive OXYCODONE SCREEN Negative PHENCYCLIDINE SCREEN Negative FENTANYL SCREEN, UR QUAL Negative ETHYL GLUCURONIDE SCREEN, URINE Collection Time: 04/04/24 10:28 AM Result Value Ref Range ETHYL GLUCURONIDE, URINE Positive Negative Lactic acid with reflex Collection Time: 04/04/24 1:29 PM Result Value Ref Range LACTIC ACID 2.0 0.5 - 2.2 mmol/L CBC auto differential Collection Time: 04/05/24 3:39 AM Result Value Ref Range Auto WBC 3.5 (L) 3.6 - 10.7 10*3/uL RBC 4.44 4.40 - 5.90 10*6/uL Hemoglobin 13.0 13.0 - 18.0 g/dL Hematocrit 40.1 40.0 - 52.0 % MCV 90.3 77.0 - 99.0 fL MCH 29.3 26.0 - 34.0 pg MCHC 32.4 30.5 - 36.0 % RDW 15.1 (H) 11.5 - 15.0 % Platelets 153 140 - 440 10*3/uL MPV 10.0 9.0 - 12.7 fL nRBC 0.0 0.0 - 2.0 /100 WBCs Neutrophils Relative 43.2 38.0 - 82.0 % Lymphocytes Relative 46.4 (H) 15.0 - 45.0 % Monocytes Relative 9.2 5.0 - 13.0 % Eosinophils Relative 0.6 0.0 - 6.0 % Basophils Relative 0.6 0.0 - 2.0 % Immature Grans % 0.0 0.0 - 2.0 % Neutrophils Absolute 1.5 (L) 1.8 - 7.5 10*3/uL Lymphocytes Absolute 1.6 1.0 - 4.3 10*3/uL Monocytes Absolute 0.3 0.0 - 0.9 10*3/uL Eosinophils Absolute 0.0 0.0 - 0.5 10*3/uL Basophils Absolute 0.0 0.0 - 0.2 10*3/uL Immature Grans Absolute 0.0 <0.1 10*3/uL Comprehensive metabolic panel Collection Time: 04/05/24 3:39 AM Result Value Ref Range SODIUM 134 (L) 136 - 145 mmol/L POTASSIUM 4.1 3.5 - 5.1 mmol/L CHLORIDE 104 98 - 107 mmol/L CARBON DIOXIDE 21 (L) 22 - 29 mmol/L ANION GAP 9 3 - 13 mmol/L UREA NITROGEN 3 (L) 8 - 21 mg/dL CREATININE 0.66 (L) 0.72 - 1.25 mg/dL GLUCOSE 102 (H) 74 - 100 mg/dL CALCIUM 8.5 8.4 - 10.2 mg/dL AST (SGOT) 149 (H) <34 U/L ALT 104 (H) <40 U/L ALKALINE PHOSPHATASE 140 40 - 150 U/L ALBUMIN 3.5 3.5 - 5.0 g/dL BILIRUBIN, TOTAL 1.6 (H) <1.2 mg/dL TOTAL PROTEIN 6.4 6.4 - 8.3 g/dL eGFR >90.0 >60.0 mL/min/1.73m*2 ASSESSMENT & PLAN Severe OUD, previously on suboxone Severe Alcohol Use Disorder Severe BZD use disorder Severe Stimulant use disorder Nicotine Use disorder Counseled patient on biopsychosocial consequences of substance use. Encouraged professional chemical dependency treatment. Discussed MAT including Acamprosate, Disulfiram, Naltrexone and Vivitrol Discussed MAT options including Suboxone, Brixadi, Sublocade and methadone. Discussed aftercare including AA/NA, 1:1 counseling, IOP and residential treatment Encouraged 12 step meeting attendance. Patient returned to [facility] and self discontinued suboxone Follow up plan for addiction management discussed with patient: Patient notes that he does not wish to discuss MAT or Aftercare at this time 2/2 abd pain and somnolence. ADM to continue to engage. Highly recommend Residential (rehab for 90 days), has been successful at [facility] in the past. Unclear why he did not return to [facility] after his last chemical detox. Goal to minimize opioid use as quickly as possible. Alcohol withdrawal mAMP withdrawal Opioids withdrawal Last use of All substances was yesterday. Ativan 1mg Q1H PO / IV PRN for CIWA score 9 or greater. Last Ativan 0328 this AM. Clonidine 0.1mg PO Q4H with holding parameters. Folate / Thiamine replacement CIWA scores per unit protocol. PRN medications for withdrawal symptom management added. MDD RODRIGUEZ Tourette Disorder No SI/HI or AVH Pt states he stopped taking his medications when he started using again PLAN: Continue Risperidone 1mg BID Continue Effexor to 75mg PO Daily. Vistaril 50mg PO Q8H PRN for anxety Disposition: Discharge anticipated in 2-4 days. This is pending: Resolution of withdrawal symptoms - progressing as expected. Medical stabilization per primary team Labs/tests/tasks to review: N/A. Nurse Ob to coordinate care with: N/A. A total of 35 minutes were spent reviewing the patient's records, evaluating the patient, entering orders, coordinating care with the treatment team, and creating this note. * Genet Carney OT - 04/04/2024 10:06 AM EST Images from the original note were not included. OCCUPATIONAL THERAPY [facility] Name/MRN: Roro Valdivia ([id number]) Date: 04/04/2024 Chart review completed and spoke to PT, per PT, pt is independent in ADLs, transfers and mobility. Pt with no concerns in returning home. Pt with no acute OT needs. Genet Carney OT * Wendi Rich, PT - 04/04/2024 9:18 AM EST Images from the original note were not included. PHYSICAL THERAPY [facility] Initial Evaluation Name/MRN: Roro Valdivia ([id number]) Evaluation Date: 04/04/2024 Date of : 1985 Admission Date: 04/04/2024 4:12 AM Age: 38 y.o. Room/Bed: [facility] Discharge Recommendation: Home with assist PRN Equipment Needed: No Assessment IMPRESSION: Pt is a 38 y.o. male admitted 04/04 with epigastric pain. Found to have pancreatitis. Ptwas previously independent with functional mobility with no device. Pt is currently mod I for bed mobility, independent with functional transfers, ambulation, and stairs. Pt denies concerns for home going. No acute skilled PT needs. Recommend home with PRN assist. Will complete orders. Admitting Diagnosis: admitted 04/04 with epigastric pain. Found to have pancreatitis. Prognosis: good Performance Deficits /Impairments: Increased Pain Decision Making: Low Complexity Subjective Pt pleasant and agreeable to therapy session Per RN okay for therapy Pain: 0-10 pain scale: 8/10 Location: abdomen Past Medical History: Past Medical History: Diagnosis Date Addiction to drug (CMS/HCC) ([facility]) Alcohol abuse Alcohol withdrawal syndrome without complication ([facility]) 06/27/2022 Alcohol withdrawal with inpatient treatment, uncomplicated ([facility]) 03/15/2022 GERD (gastroesophageal reflux disease) History of pancreatitis 01/07/2023 Hypertension Pancreatitis Seizures ([facility]) SVT (supraventricular tachycardia) ([facility]) Tourette syndrome Past Surgical History: Past Surgical History: Procedure Laterality Date APPENDECTOMY Admission Diagnosis: Patient Active Problem List Diagnosis Date Noted Severe malnutrition (CMS/HCC) ([facility]) 02/06/2024 Alcohol withdrawal syndrome without complication ([facility]) 02/04/2024 Alcohol-induced acute pancreatitis, unspecified complication status 01/20/2024 Alcoholic intoxication without complication (CMS/HCC) ([facility]) 12/13/2023 Moderate malnutrition (CMS/HCC) ([facility]) 11/20/2023 Acute pancreatitis without infection or necrosis 11/18/2023 Acute recurrent pancreatitis 10/16/2023 Severe opioid use disorder on maintenance therapy ([facility]CC) 08/11/2023 Severe episode of recurrent major depressive disorder, without psychotic features ([facility]CC) 08/11/2023 Severe alcohol use disorder (HCC) 06/24/2023 Positive 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 01/07/2023 History of pancreatitis 01/07/2023 Benzodiazepine withdrawal with complication (HCC) 11/04/2022 Opioid withdrawal (HCC) 11/04/2022 Amphetamine withdrawal (HCC) 11/04/2022 Pneumonia 11/04/2022 Palpitations 11/04/2022 Other specified abnormal findings of blood chemistry 11/04/2022 Dermatitis 11/04/2022 Depression 11/04/2022 Alcohol abuse 07/11/2022 Polysubstance use disorder 03/16/2022 Cocaine abuse (HCC) 03/16/2022 Elevated liver enzymes 03/16/2022 Panic disorder 03/16/2022 Hematemesis of unknown etiology 12/13/2023 GERD (gastroesophageal reflux disease) 06/06/2018 Hypertension 06/06/2018 SVT (supraventricular tachycardia) ([facility]) 06/06/2018 Tourette syndrome 06/06/2018 Alcohol induced acute pancreatitis without necrosis or infection 03/29/2018 Medical Precautions: No active isolations Proper PPE donned/doffed in accordance with facility standards. Fall Risk: Beard Fall Risk Score: 0 (Low Risk) Precautions/Restrictions: N/A Family/Caregiver Present: none Overall Cognitive Status: WFL Overall Orientation Status: Oriented x4 Vision: glasses however pt reports he lost them Hearing: normal Social/Functional History Patient admitted from home. Lives With: Parent Type of Home: apartment Home Layout: Multi-Level Home 4 flights Home Access: Level Entry Bathroom Shower/Tub: Tub/Shower Combo Toilet: Standard Home Equipment: none Homemaking Responsibilities: Independent Receives Help From: Family Active Crisis Nurse: Yes Prior Level of Function Prior Level of ADL Function: Independent Prior Level of Mobility: Independent; Device: None Prior Level of Transfers: Independent Objective Lower Extremity Assessment AROM: WFL Strength: WFL Balance: Balance During Session: Posture: good Sitting - Static: Independent Sitting - Dynamic: Independent Standing - Static: Independent Standing - Dynamic: Independent Bed Mobility: Supine to sit: Modified Independent Sit to supine: Modified Independent Pt completes x2 at mod I. HOB elevated. Completes without difficulty. Transfers Sit to stand: Independent Stand to sit: Independent X2 from EOB, x1 from toilet. Pt completes independently. No LOB or instability throughout. Ambulation Ambulation 1 Assistive device(s) used: None Assist level: Independent Distance (ft): ~250 feet x1 Quality of gait: No LOB, reciprocal stepping Pt demos appropriate gait speed, no LOB or instability throughout. Completes independently. Stairs Stairs 1 Assistive device(s) used: None Assist level: Independent # of steps: 24 Rails: none Additional factors: reciprocal going up, reciprocal going down Pt completes 2 flights of steps independently. Pt completes without difficulty. Pt denies concerns for completing additional 2 flights for home going. Outcome Measures AM-PAC How much HELP from another person do you currently need Turning from your back to your side while in a flat bed without using bedrails?: None Moving from lying on your back to sitting on the side of a flat bed without using bedrails?: None Moving to and from a bed to a chair (including a wheelchair)?: None Standing up from a chair using your arms (wheelchair or bedside chair)?: None Walking in a hospital room?: None Stair climbing assessed?: Yes Climbing 3-5 steps with a railing?+: None AM-PAC Inpatient Mobility Raw Score : 24 AM-PAC Inpatient Mobility Raw Score (No Stairs) : 20 Plan No skilled acute PT indicated at this time. Please reconsult should changes occur. Safety/Education Safety Safety Devices in place: All fall risk precautions in place, call light within reach, left in bed, nurse notified, and no alarms engaged upon entry Restraints: N/A Education Education Given To: patient Education Provided: PT Role, Gait Training, and Discharge Recommendations Education Method: Verbal Barriers to Learning: None Education Outcome: Verbalized Understanding and Demonstrated Understanding Goals Patient Stated Goal: decrease pain No acute skilled PT needs. PT eval only. Therapy Time Individual Co-Treatment Co-Evaluation Time In 0908 Time Out 0916 Minutes 8 Wendi Rich PT Patient's Physical Therapy Plan of Care supervision is transferred to a [facility] Physical Therapist. Goals and/or treatment plan was established in collaboration with patient/family/other representatives. documented in this [facility]02-25-2025 NotePatient declined smoking cessation counseling. Accepting of handout with contact information for future reference.[facility]02-24-2025 Consult note * Guillermo Richardson MD - 04/04/2024 1:51 PM ESTAssociated Order(s): Inpatient consult to Gastroenterology Images from the original note were not included. GI CONSULTATION Patient: Roro Valdivia : 1985 Primary Care Physician: Tam Hughes DO Inpatient consult to Gastroenterology Consult performed by: Guillermo Richardson MD Consult ordered by: Christopher Arias MD REASON FOR CONSULTATION: Acute pancreatitis HISTORY OF PRESENT ILLNESS: Roro Valdivia is a 38 y.o. male with PMH below who presented to the ER complaining of abdominal pain. Associated with nausea and vomiting. Patient reports that he was inhis usual state of health when suddenly he developed 10 out of 10 epigastric abdominal pain that radiated to the back the night before presenting to the ER. He reports that this is similar to previous episodes of pancreatitis. Patient reports that he had been sober for a little while but recently started drinking alcohol again. In the ER labs showed: Sodium 137, potassium 3.5, BUN 4, creatinine 0.72, alkaline phosphatase 183, total bilirubin 1, ALT 166, AST 258, lipase 101, lactic acid slightlyelevated 2.6, normal CBC. Ethanol level elevated at 222. CT abdomen/pelvis showed mild peripancreatic fat stranding and edema correlate with mild acute pancreatitis. Fatty liver. Patient was admittedfor further evaluation management. PAST MEDICAL HISTORY: Past Medical History: Diagnosis Date Addiction to drug (CMS/HCC) ([facility]) Alcohol abuse Alcohol withdrawal syndrome without complication ([facility]) 06/27/2022 Alcohol withdrawal with inpatient treatment, uncomplicated ([facility]) 03/15/2022 GERD (gastroesophageal reflux disease) History of pancreatitis 01/07/2023 Hypertension Pancreatitis Seizures ([facility]) SVT (supraventricular tachycardia) ([facility]CC) Tourette syndrome PAST SURGICAL HISTORY: Past Surgical History: Procedure Laterality Date APPENDECTOMY FAMILY HISTORY: Family History Problem Relation Name Age of Onset No Known Problems Mother No Known Problems Father SOCIAL HISTORY: TOBACCO: Social History Tobacco Use Smoking Status Every Day Current packs/day: 1.00 Types: Cigarettes Smokeless Tobacco Never ETOH: Alcohol Use: Alcohol Misuse (04/04/2024) AUDIT-C Frequency of Alcohol Consumption: 4 or more times a week Average Number of Drinks: 10 or more Frequency of Binge Drinking: Daily or almost daily DRUGS: Social History Substance and Sexual Activity Drug Use Not Currently Types: Cocaine, Methamphetamines, Oxycodone, Fentanyl, Heroin, Benzodiazepines MEDICATIONS PRIOR TO ADMISSION: Current Outpatient Medications Medication Instructions cloNIDine (CATAPRES) 0.1 mg, 2 times daily doxylamine (UNISOM) 25 mg, Oral, Nightly PRN hydrOXYzine HCl (ATARAX) 50 mg, Oral, Every 8 hours PRN metoprolol succinate XL (TOPROL-XL) 50 mg, Oral, Daily, Do not crush or chew. pantoprazole (PROTONIX) 40 mg, Oral, 2 times daily before meals, Do not crush, chew, or split. risperiDONE (RISPERDAL) 1 mg, Oral, 2 times daily venlafaxine XR (EFFEXOR XR) 75 mg, Oral, Daily with breakfast, Do not crush or chew. CURRENT MEDICATIONS: Current Facility-Administered Medications: acetaminophen (Tylenol) tablet 650 mg, 650 mg, Oral, q6h PRN OR acetaminophen (Tylenol) suppository 650 mg, 650 mg, Rectal, q6h PRN, Christopher Arias MD doxylamine (Unisom) tablet 25 mg, 25 mg, Oral, Nightly PRN, Christopher Arias MD folic acid (Folvite) tablet 1 mg, 1 mg, Oral, Daily, Christopher Arias MD, 1 mg at 04/04/24 0956 heparin injection 5,000 Units, 5,000 Units, SubCUTAneous, 2 times per day, Christopher Arias MD, 5,000 Units at 04/04/24 0956 hydrOXYzine pamoate (Vistaril) capsule 50 mg, 50 mg, Oral, q8h PRN, Christopher Arias MD LORazepam (Ativan) tablet 1 mg, 1 mg, Oral, q1h PRN, 1 mg at 04/04/24 1342 OR LORazepam (Ativan) injection 1 mg, 1 mg, IntraVENous, q1h PRN OR LORazepam (Ativan) tablet 2 mg, 2 mg, Oral, q1h PRN OR LORazepam (Ativan) injection 2 mg, 2 mg, IntraVENous, q1h PRN OR LORazepam (Ativan) tablet 3 mg, 3 mg, Oral, q1h PRN OR LORazepam (Ativan) injection 3 mg, 3 mg, IntraVENous, q1h PRNOR LORazepam (Ativan) tablet 4 mg, 4 mg, Oral, q1h PRN OR LORazepam (Ativan) injection 4 mg, 4 mg, IntraVENous, q1h PRN, Christopher Arias MD melatonin tablet 3 mg, 3 mg, Oral, Nightly, Christopher Arias MD metoprolol succinate XL (Toprol-XL) 24 hr tablet 50 mg, 50 mg, Oral, Daily, Christopher Arias MD, 50 mg at 04/04/24 0957 morphine injection 2 mg, 2 mg, IntraVENous, q4h PRN, Paulino Shelton MD, 2 mg at 04/04/24 1342 naloxone (Narcan) injection 0.4 mg, 0.4 mg, IntraVENous, q5 min PRN, Paulino Shelton MD ondansetron ODT (Zofran-ODT) disintegrating tablet 4 mg, 4 mg, Oral, q8h PRN OR ondansetron (Zofran) injection 4 mg, 4 mg, IntraVENous, q6h PRN, Christopher Arias MD, 4 mg at 04/04/24 0956 oxyCODONE (Roxicodone) immediate release tablet 5 mg, 5 mg, Oral, q6h PRN, Paulino Shelton MD, 5 mg at 04/04/24 1115 pantoprazole (ProtoNix) EC tablet 40 mg, 40 mg, Oral, BID AC, Christopher Arias MD, 40 mg at 04/04/24 0651 polyethylene glycol (PEG) 3350 (Miralax) packet 17 g, 17 g, Oral, Daily PRN, Christopher Arias MD risperiDONE (RisperDAL) tablet 1 mg, 1 mg, Oral, BID, Christopher Arias MD, 1 mg at 04/04/24 0956 sodium chloride 0.9 % infusion 250 mL, 250 mL, IntraVENous, Continuous, Paulino Shelton MD, Last Rate: 250 mL/hr at 04/04/24 1106, 250 mL at 04/04/24 1106 thiamine (Vitamin B1) tablet 100 mg, 100 mg, Oral, Daily, Christopher Arias MD, 100 mg at 957 venlafaxine XR (Effexor XR) 24 hr capsule 75 mg, 75 mg, Oral, Daily with breakfast, Christopher Arias MD, 75 mg at 04/04/24 0722 ALLERGIES: No Known Allergies REVIEW OF SYSTEMS: No fever, chills, or sweats. Normal appetite and weight. No CASTILLO, visual disturbance, eye pain, jaundice, sore throat or mouth ulcers. No skin rash or itching. No CP, SOB, PARKER, cough or wheeze. No urinary frequency, urgency, hematuria, or dysuria. No myalgia, arthralgia, or joint swelling. No weakness, numbness, or confusion. GI per HPI. No polyuria, polydipsia, heat or cold intolerance. PHYSICAL EXAM: VS: BP 153/94 Pulse 93 Temp 36.8 C (98.3 F) (Temporal) Resp 18 Ht 6' 1 (1.854 m) Wt 245 lb (111 kg) SpO2 95% BMI 32.32 kg/m Body mass index is 32.32 kg/m . GENERAL: Pleasant and NAD. HEENT: NCAT, PERRLA, EOMI, Scleral anicteric. Oropharhynx clear with no erythema or exudate. Neck supple, no cervical LAD or thyromegaly. CV: RRR, NL S1/S2, no murmurs. Distal pulses palpable and equal b/l. LUNGS: CTA b/l. Normal percussion and palpation. No W/R/R. Abdomen: + BS, soft, epigastric tenderness to palpation. non-distended. No hepatosplenomegaly. No mass felt. No rebound or guarding. No hernia. Extremities: No C/C/E. No muscle atrophy. Skin: No skin lesion or breakdown. Lymph: No cervical or supraclavicular LAD. Musculoskeletal: Strength 5/5 in all exts. No joint tenderness or effusions in LEs. Neurologic: A&O x 3, CN II-XII grossly intact. No asterixis. Non-focal. Psych: Normal affect and speech. LABS AND IMAGING: Recent blood work and relevant radiologic and endoscopic studies were reviewed and discussed with the patient. CMP: Recent Labs 04/04/24435 NA 137 K 3.5 CL 102 CO2 21* BUN 4* CREATININE 0.72 GLUCOSE 150* CALCIUM 9.3 CBC: Recent Labs 04/04/24435 WBC 5.9 HGB 15.0 HCT 44.7 PLT 260 HEPATIC: Recent Labs 04/04/24435 AST 258* ALT 166* BILITOT 1.0 ALKPHOS 183* BNP: No results for input(s): BNP in the last 72 hours. LIPASE/AMYLASE: Recent Labs 04/04/24435 LIPASE 101* LACTATE: No lab exists for component: LACTA TROPONIN: No results for input(s): TROPONINI in the last 72 hours. LIPIDS: No results for input(s): CHOL, HDL in the last 72 hours. No lab exists for component: LDLCALCU INR: Recent Labs 04/04/24 0955 INR 1.1 NH3:No results for input(s): AMMONIA in the last 72 hours. Imaging: CT ABDOMEN AND PELVIS WITH CONTRAST CLINICAL INDICATION: Abdominal pain. TECHNIQUE: Multi-axial 3mm sections through the abdomen and pelvis following 75 mL of Isoview contrast media. No oral contrast was administered. Coronal and sagittal reconstructions were reviewed. Dose reduction was employed with automated exposure control. COMPARISON: January 20, 2024. FINDINGS: Lower thorax: Normal. Stomach: Unremarkable. Liver: Normal size and contours. The liver demonstrates generalized diminished attenuation as compared to the spleen, compatible with hepatic steatosis. No focal lesion. Biliary tree: Unremarkable gallbladder by CT. No biliary dilatation. Spleen: Normal. Adrenals: Normal. Pancreas: Mild peripancreatic fat stranding and edema; correlate with mild acute pancreatitis. No ductal dilation or pancreatic necrosis. Kidneys: Symmetric contrast enhancement without evidence of hydronephrosis. No focal renal lesion is identified. Free air or fluid: None. Mesenteric/retroperitoneal: No adenopathy or inflammation. Aorta: Normal caliber of aorta and bilateral common iliac arteries. Bowel: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 Neutrophils Absolute 2.0 1.8 - 7.5 10*3/uL Lymphocytes Absolute 3.3 1.0 - 4.3 10*3/uL Monocytes Absolute 0.5 0.0 - 0.9 10*3/uL Eosinophils Absolute 0.0 0.0 - 0.5 10*3/uL Basophils Absolute 0.1 0.0 - 0.2 10*3/uL Immature Grans Absolute 0.0 <0.1 10*3/uL Comprehensive metabolic panel Collection Time: 04/04/24 4:36 AM Result Value Ref Range SODIUM 137 136 - 145 mmol/L POTASSIUM 3.5 3.5 - 5.1 mmol/L CHLORIDE 102 98 - 107 mmol/L CARBON DIOXIDE 21 (L) 22 - 29 mmol/L ANION GAP 14 (H) 3 - 13 mmol/L UREA NITROGEN 4 (L) 8 - 21 mg/dL CREATININE 0.72 0.72 - 1.25 mg/dL GLUCOSE 150 (H) 74 - 100 mg/dL CALCIUM 9.3 8.4 - 10.2 mg/dL AST (SGOT) 258 (H) <34 U/L ALT 166 (H) <40 U/L ALKALINE PHOSPHATASE 183 (H) 40 - 150 U/L ALBUMIN 4.3 3.5 - 5.0 g/dL BILIRUBIN, TOTAL 1.0 <1.2 mg/dL TOTAL PROTEIN 8.0 6.4 - 8.3 g/dL eGFR >90.0 >60.0 mL/min/1.73m*2 Lipase Collection Time: 04/04/24 4:36 AM Result Value Ref Range LIPASE 101 (H) <55 U/L Lactic acid with reflex Collection Time: 04/04/24 4:36 AM Result Value Ref Range LACTIC ACID 2.6 (H) 0.5 - 2.2 mmol/L Complete Urinalysis Collection Time: 04/04/24 5:38 AM Result Value Ref Range Color, Urine Light Yellow Lt. Yellow Clarity, Urine Clear Clear pH, Urine 6.0 5.0 - 8.0 pH Leukocytes, Urine Negative Negative Teofilo/uL Nitrite, Urine Negative Negative Protein, Urine Negative Negative mg/dL Glucose, Urine Normal Normal (<70) mg/dL Bilirubin, Urine Negative Negative mg/dL Ketones, Urine Negative Negative mg/dL Urobilinogen, Urine Normal Normal (0-1) mg/dL Blood, Urine Negative Negative mg/dL SPECIFIC GRAVITY OF URINE (NUMERIC) 1.008 1.005 - 1.030 ECG 12 lead Collection Time: 04/04/24 7:17 AM Result Value Ref Range Heart Rate 118 bpm QRSD Interval 93 ms QT Interval 333 ms QTC Interval 467 ms P [place] 27 degrees QRS [place] 54 degrees T Wave [place] 16 degrees ME Interval 163 ms ECG 12 lead Collection Time: 04/04/24 7:31 AM Result Value Ref Range Heart Rate 80 bpm QRSD Interval 91 ms QT Interval 387 ms QTC Interval 447 ms P [place] 51 degrees QRS [place] -6 degrees T Wave [place] 6 degrees ME Interval 158 ms MEDICATIONS Home Meds Current Outpatient Medications Medication Instructions cloNIDine (CATAPRES) 0.1 mg, Oral, 2 times daily doxylamine (UNISOM) 25 mg, Oral, Nightly PRN hydrOXYzine HCl (ATARAX) 50 mg, Oral, Every 8 hours PRN metoprolol succinate XL (TOPROL-XL) 50 mg, Oral, Daily, Do not crush or chew. pantoprazole (PROTONIX) 40 mg, Oral, 2 times daily before meals, Do not crush, chew, or split. risperiDONE (RISPERDAL) 1 mg, Oral, 2 times daily venlafaxine XR (EFFEXOR XR) 75 mg, Oral, Daily with breakfast, Do not crush or chew. Scheduled Inpatient Meds folic acid, 1 mg, Oral, Daily heparin, 5,000 Units, SubCUTAneous, 2 times per day melatonin, 3 mg, Oral, Nightly metoprolol succinate XL, 50 mg, Oral, Daily pantoprazole, 40 mg, Oral, BID AC risperiDONE, 1 mg, Oral, BID thiamine, 100 mg, Oral, Daily venlafaxine XR, 75 mg, Oral, Daily with breakfast PRN Inpatient Meds PRN medications: acetaminophen OR acetaminophen, doxylamine, hydrOXYzine pamoate, LORazepam OR LORazepam OR LORazepam OR LORazepam OR LORazepam OR LORazepam OR LORazepam OR LORazepam, morphine sulfate, naloxone, ondansetron ODT OR ondansetron, polyethylene glycol(PEG) 3350 Continuous Inpatient Infusions sodium chloride 0.9 % with KCl, 100 mL/hr, Last Rate: 100 mL/hr (04/04/24 0724) ASSESSMENT & PLAN Severe OUD, previously on suboxone Severe Alcohol Use Disorder Severe BZD use disorder Severe Stimulant use disorder Nicotine Use disorder Counseled patient on biopsychosocial consequences of substance use. Encouraged professional chemical dependency treatment. Discussed MAT including Acamprosate, Disulfiram, Naltrexone and Vivitrol Discussed MAT options including Suboxone, Brixadi, Sublocade and methadone. Discussed aftercare including AA/NA, 1:1 counseling, IOP and residential treatment Encouraged 12 step meeting attendance. Follow up plan for addiction management discussed with patient: Patient not interested in aftercare or MAT at this time. Patient self discontinued suboxone. Patient has returned to PSA. Alcohol withdrawal mAMP withdrawal Opioids withdrawal Last use of All substances was yesterday. Ativan 1mg Q1H PO / IV PRN for CIWA score 9 or greater. Consider addition of Gabapentin taper for PSA. Folate / Thiamine replacement CIWA scores per unit protocol. PRN medications for withdrawal symptom management added. MDD RODRIGUEZ Tourette Disorder - Continue risperidone 1mg BID - Continue Effexor to 75mg PO Daily. - Vistaril 50mg PO Q8H PRN for anxety Disposition: Discharge anticipated in 3-5 days. This is pending: Resolution of withdrawal symptoms. Medical stabilization. Labs/tests/tasks to review: N/A. Nurse Ob to coordinate care with: N/A. A total of 90 minutes were spent reviewing the patient's records, evaluating the patient, entering orders, coordinating care with the treatment team, and creating this note. documented in this [id number] History and physical note* Paulino Shelton MD - 04/04/2024 7:55 AM EST Attending History and Physical Admit Date: 04/04/2024 PCP: Tam Hughes DO CHIEF COMPLAINT: Abdominal pain Reason for Admission: Acute pancreatitis, severe alcohol use disorder, NAGMA, lactic acidosis History Obtained From: patient HISTORY OF PRESENT ILLNESS: Roro is a 38 y.o. male with past medical history below who presents with chief complaint listed above. Patient presents to the ER with complaints of abdominal pain. Symptoms located in the epigastricregion and started last night. Occurs intermittently with associated nausea and vomiting. History of alcohol use. Came to the ER for further evaluation. In the ED, BP 169/113, heart rate 104, respirations 16, temperature 97.9 F, SpO2 99%. Labs are consistent with a WBC of 5.9, lactic acid 2.6, anion gap 14, CO2 21, alk phos 183, lipase 101, AST 258, ALT 166, ethanol 222, urine drug screen positive for amphetamines and opioids. CT abdomen pelvis consistent with mild peripancreatic fat stranding and edema consistent with acute mild pancreatitis. Started on Ativan and IV fluid resuscitation. Admitted to the service for further evaluation Past Medical History: Past Medical History: Diagnosis Date Addiction to drug ([facility]/HCC) ([facility]) Alcohol abuse Alcohol withdrawal syndrome without complication ([facility]) 06/27/2022 Alcohol withdrawal with inpatient treatment, uncomplicated ([facility]) 03/15/2022 GERD (gastroesophageal reflux disease) History of pancreatitis 01/07/2023 Hypertension Pancreatitis Seizures ([facility]) SVT (supraventricular tachycardia) ([facility]) Tourette syndrome Past Surgical History: Past Surgical History: Procedure Laterality Date APPENDECTOMY Social History: Social History Socioeconomic History Marital status: Single Spouse name: Not on file Number of children: Not on file Years of education: Not on file Highest education level: Not on file Occupational History Not on file Tobacco Use Smoking status: Every Day Current packs/day: 1.00 Types: Cigarettes Smokeless tobacco: Never Vaping Use Vaping status: Never Used Substance and Sexual Activity Alcohol use: Yes Comment: 03/16 vodka daily Drug use: Not Currently Types: Cocaine, Methamphetamines, Oxycodone, Fentanyl, Heroin, Benzodiazepines Sexual activity: Not Currently Other Topics Concern Not on file Social History Narrative Not on file Social Drivers of Health Financial Resource Strain: Low Risk (02/05/2024) Overall Financial Resource Strain (CARDIA) Difficulty of Paying Living Expenses: Not hard at all Recent Concern: Financial Resource Strain - Medium Risk (12/14/2023) Overall Financial Resource Strain (CARDIA) Difficulty of Paying Living Expenses: Somewhat hard Food Insecurity: No Food Insecurity (04/04/2024) Hunger Vital Sign Worried About Running Out of Food in the Last Year: Never true Ran Out of Food in the Last Year: Never true Transportation Needs: No Transportation Needs (04/04/2024) PRAPARE - Transportation Lack of Transportation (Medical): No Lack of Transportation (Non-Medical): No Physical Activity: Inactive (02/05/2024) Exercise Vital Sign Days of Exercise per Week: 0 days Minutes of Exercise per Session: 0 min Stress: Stress Concern Present (02/05/2024) [employer] - Occupational Stress Questionnaire Feeling of Stress : To some extent Social Connections: Socially Isolated (02/05/2024) Social Connection and Isolation Panel [NHANES] Frequency of Communication with Friends and Family: More than three times a week Frequency of Social Gatherings with Friends and Family: More than three times a week Attends [employer] Services: Never Active Member of Clubs or Organizations: No Attends Club or Organization Meetings: Never Marital Status: Never Intimate Partner Violence: Not At Risk (04/04/2024) Humiliation, Afraid, Rape, and Kick questionnaire Fear of Current or Ex-Partner: No Emotionally Abused: No Physically Abused: No Sexually Abused: No Housing Stability: Low Risk (04/04/2024) Housing Stability Vital Sign Unable to Pay for Housing in the Last Year: No Number of Times Moved in the Last Year: 0 Homeless in the Last Year: No Recent Concern: Housing Stability - High Risk (02/05/2024) Housing Stability Vital Sign Unable to Pay for Housing in the Last Year: Patient unable to answer Number of Times Moved in the Last Year: 0 Homeless in the Last Year: Yes Family History: Family History Problem Relation Name Age of Onset No Known Problems Mother No Known Problems Father Medications Prior to Admission: No current facility-administered medications on file prior to encounter. Current Outpatient Medications on File Prior to Encounter Medication Sig Dispense Refill cloNIDine (Catapres) 0.1 MG tablet Take 0.1 mg by mouth 2 times daily. hydrOXYzine HCl (Atarax) 50 MG tablet Take 1 tablet (50 mg) by mouth every 8 hours as needed for itching. 90 tablet 0 metoprolol succinate XL (Toprol-XL) 50 MG 24 hr tablet Take 1 tablet (50 mg) by mouth daily. Do notcrush or chew. 30 tablet 1 pantoprazole (ProtoNix) 40 MG EC tablet Take 1 tablet (40 mg) by mouth 2 times daily (before meals). Do not crush, chew, or split. 60 tablet 0 risperiDONE (RisperDAL) 0.5 MG tablet Take 2 tablets (1 mg) by mouth 2 times daily. 60 tablet 1 venlafaxine XR (Effexor XR) 75 MG 24 hr capsule Take 1 capsule (75 mg) by mouth daily (with breakfast). Do not crush or chew. 30 capsule 1 doxylamine (Unisom) 25 MG tablet Take 1 tablet (25 mg) by mouth Nightly as needed for sleep. 30 tablet 0 [DISCONTINUED] Melatonin 3 MG capsule Take 3 mg by mouth Nightly. 30 capsule 0 [DISCONTINUED] metoprolol succinate XL (Toprol-XL) 50 MG 24 hr tablet Take 1 tablet (50 mg) by mouth daily. Do not crush or chew. 30 tablet 1 [DISCONTINUED] propranolol (Inderal) 20 MG tablet Take 1 tablet (20 mg) by mouth 3 times daily as needed (anxiety). 90 tablet 1 [DISCONTINUED] risperiDONE (RisperDAL) 0.5 MG tablet Take 1 tablet (0.5 mg) by mouth Nightly. 30 tablet 1 [DISCONTINUED] risperiDONE (RisperDAL) 0.5 MG tablet Take 2 tablets (1 mg) by mouth 2 times daily. 30 tablet 1 Allergies: No Known Allergies REVIEW OF SYSTEMS: Constitutional: Negative for fever, chills, activity change and unexpected weight change. HEENT: Negative for congestion, postnasal drip and sneezing. Eyes: Negative for itching and visual disturbance. Respiratory: Negative for apnea, cough, choking, chest tightness, shortness of breath, wheezing andstridor. Cardiovascular: Negative for chest pain. Gastrointestinal: Negative for nausea, vomiting, abdominal pain, diarrhea and blood in stool. Genitourinary: Negative for dysuria, frequency and flank pain. Musculoskeletal: Negative for myalgias and joint swelling. Skin: Negative for rash. Neurological: Negative for dizziness, tremors, seizures, syncope, facial asymmetry, speech difficulty, weakness, numbness and headaches. Hematological: Negative for adenopathy. Psychiatric/Behavioral: Negative for suicidal ideas, behavioral problems, self- injury and dysphoricmood. Vitals: BP (!) 153/103 (BP Location: Right arm, Patient Position: Sitting) Pulse 93 Temp 36.8 C (98.3 F) (Temporal) Resp 18 Ht 6' 1 (1.854 m) Wt 245 lb (111 kg) SpO2 95% BMI 32.32 kg/m BMI Classification: Obese (BMI 30.0-39.9) Pulse Ox: SpO2 Av.3 % Min: 95 % Max: 99 % Supplemental O2: PHYSICAL EXAM: Physical Exam Constitutional: Appearance: He is obese. He is ill-appearing. Cardiovascular: Rate and Rhythm: Normal rate. Heart sounds: No murmur heard. Pulmonary: Effort: No respiratory distress. Breath sounds: No wheezing. Abdominal: General: There is no distension. Tenderness: There is abdominal tenderness. Musculoskeletal: General: No swelling. Neurological: Mental Status: Mental status is at baseline. DATA: CBC: Recent Labs 04/04/24 043 WBC 5.9 RBC 5.11 HGB 15.0 HCT 44.7 MCV 87.5 RDW 15.3* PLT 260 BMP: Recent Labs 04/04/24 0436 NA 137 K 3.5 CL 102 CO2 21* BUN 4* CREATININE 0.72 GLUCOSE 150* CALCIUM 9.3 ANIONGAP 14* LIVER PROFILE: Recent Labs 04/04/24 0436 AST 258* ALT 166* BILITOT 1.0 ALKPHOS 183* PROT 8.0 PT/INR: Recent Labs 04/04/24 0955 PROTIME 12.8* INR 1.1 CARDIAC ENZYMES: No results for input(s): TROPONINI in the last 72 hours. Procalcitonin: No results found for: PROCAL Urine Culture: No results found for this or any previous visit. COVID-19 PCR: No results for input(s): COVID19 in the last 72 hours. I reviewed: [x] laboratory results [x] radiographic results At the time of today's encounter. Pt was advised of the results. Data: (CAT1) Reviewed 3 or more notes from different specialty or health system (each=1). (CAT1) Reviewed 3 or more labs/studies ordered by another provider not previously counted (each=1, panels count as 1). (CAT1) Reviewed 3 or more labs/studies previously ordered by me not previously counted (each=1, panels count as 1). (CAT2) CT of A/P reviewed & showed mild perinephric stranding in the pancreas as interpreted byme. Assessment Discussed management with the ED provider and agree with hospitalization. Acute, acute on chronic, unstable/uncontrolled chronic problems/diagnoses: Acute pancreatitis Severe alcohol use disorder NAGMA Lactic acidosis Stable chronic problems affecting care, new non-acute diagnoses: History of Tourette's syndrome Alcohol use disorder. History of seizures HTN HLD History of SVT GERD Class III obesity- Plan As a result of the above findings & factors, the following mgmt was pursued: -Start on aggressive IV fluid resuscitation, advance diet as tolerated and GI consulted. -CIWA protocol, thiamine and folate with as needed Ativan. Addiction med consulted - am labs, replace lytes prn - PT/OT/CM/SW - delirium precautions: increase activity - DVT prophylaxis: enoxaparin and encourage ambulation Complexity: Acute illness or injury posing a threat to life or body function (HIGH). Chronic illness with severe exacerbation, progression, or side effect of tx (HIGH). Risk: Admission to hospital-level care was considered or occurred (HIGH). Advance Directive: Prior Anticipated Discharge - Date - 04/06 - Location - Home - Pending the following - Sx, ADM clearance Total time spent (which include face to face and non face to face encounters) : 85 minutes. Toxic drug monitoring/narrow therapeutic index drug monitoring : # Drug name : Lovenox # Route administered : subq # Method of monitoring : CBC Extended Emergency Contact Information Primary Emergency Contact: Frandy Valdiviaine Mobile Relation: Mother Paulino Shelton MD Division of Hospitalist Medicine [facility] [employer] Lázaro Acosta : 12/27/1968 Primary Care Physician: Negar Macedo MD The patient and/or family/surrogate voluntarily agreed to participate in ACP services. Patient s cognitive capacity: Full Code Status: [x] [FULL CODE - Continue all advanced life support: CPR,intubation,invasive procedures] [_] [DNR-CCA - DO NOT do CPR, intubation] [_] [DNR-LOGISTICS ENGINEERING MANAGER - Comfort care only] [_] DNR form [was/was not] signed Summary of discussion: The patient health care POA/ surrogate is the following: None. [Condition that instigated the ACP on this DOS, relevant PMH, functional status, goals of care, andwhom this was discussed with including names and relationship to the patient, and any relevant advance care documentation discussion] I answered all the patient/family questions that I could within the range and scope of the current medical situation. We discussed the medical conditions, risks, benefits, outcomes, and goals of careat this time for the patient's medical issues at hand in the face of the patient's chronic issues and current presentation. Total time spent: 4 minutes were spent discussing the patient's resuscitation status, advance care planning, and end of life care, with patient and/or family/surrogate. [id number] History and physical note* Paulino Shelton MD - 04/04/2024 7:55 AM EST Attending History and Physical Admit Date: 04/04/2024 PCP: Tam Hughes DO CHIEF COMPLAINT: Abdominal pain Reason for Admission: Acute pancreatitis, severe alcohol use disorder, NAGMA, lactic acidosis History Obtained From: patient HISTORY OF PRESENT ILLNESS: Roro is a 38 y.o. male with past medical history below who presents with chief complaint listed above. Patient presents to the ER with complaints of abdominal pain. Symptoms located in the epigastricregion and started last night. Occurs intermittently with associated nausea and vomiting. History of alcohol use. Came to the ER for further evaluation. In the ED, BP 169/113, heart rate 104, respirations 16, temperature 97.9 F, SpO2 99%. Labs are consistent with a WBC of 5.9, lactic acid 2.6, anion gap 14, CO2 21, alk phos 183, lipase 101, AST 258, ALT 166, ethanol 222, urine drug screen positive for amphetamines and opioids. CT abdomen pelvis consistent with mild peripancreatic fat stranding and edema consistent with acute mild pancreatitis. Started on Ativan and IV fluid resuscitation. Admitted to the service for further evaluation Past Medical History: Past Medical History: Diagnosis Date Addiction to drug ([facility]/HCC) (HCC) Alcohol abuse Alcohol withdrawal syndrome without complication ([facility]) 06/27/2022 Alcohol withdrawal with inpatient treatment, uncomplicated ([facility]) 03/15/2022 GERD (gastroesophageal reflux disease) History of pancreatitis 01/07/2023 Hypertension Pancreatitis Seizures ([facility]) SVT (supraventricular tachycardia) ([facility]) Tourette syndrome Past Surgical History: Past Surgical History: Procedure Laterality Date APPENDECTOMY Social History: Social History Socioeconomic History Marital status: Single Spouse name: Not on file Number of children: Not on file Years of education: Not on file Highest education level: Not on file Occupational History Not on file Tobacco Use Smoking status: Every Day Current packs/day: 1.00 Types: Cigarettes Smokeless tobacco: Never Vaping Use Vaping status: Never Used Substance and Sexual Activity Alcohol use: Yes Comment: 2/ vodka daily Drug use: Not Currently Types: Cocaine, Methamphetamines, Oxycodone, Fentanyl, Heroin, Benzodiazepines Sexual activity: Not Currently Other Topics Concern Not on file Social History Narrative Not on file Social Drivers of Health Financial Resource Strain: Low Risk (02/05/2024) Overall Financial Resource Strain (CARDIA) Difficulty of Paying Living Expenses: Not hard at all Recent Concern: Financial Resource Strain - Medium Risk (12/14/2023) Overall Financial Resource Strain (CARDIA) Difficulty of Paying Living Expenses: Somewhat hard Food Insecurity: No Food Insecurity (04/04/2024) Hunger Vital Sign Worried About Running Out of Food in the Last Year: Never true Ran Out of Food in the Last Year: Never true Transportation Needs: No Transportation Needs (04/04/2024) PRAPARE - Transportation Lack of Transportation (Medical): No Lack of Transportation (Non-Medical): No Physical Activity: Inactive (02/05/2024) Exercise Vital Sign Days of Exercise per Week: 0 days Minutes of Exercise per Session: 0 min Stress: Stress Concern Present (02/05/2024) [employer] - Occupational Stress Questionnaire Feeling of Stress : To some extent Social Connections: Socially Isolated (02/05/2024) Social Connection and Isolation Panel [NHANES] Frequency of Communication with Friends and Family: More than three times a week Frequency of Social Gatherings with Friends and Family: More than three times a week Attends [employer] Services: Never Active Member of Clubs or Organizations: No Attends Club or Organization Meetings: Never Marital Status: Never Intimate Partner Violence: Not At Risk (04/04/2024) Humiliation, Afraid, Rape, and Kick questionnaire Fear of Current or Ex-Partner: No Emotionally Abused: No Physically Abused: No Sexually Abused: No Housing Stability: Low Risk (04/04/2024) Housing Stability Vital Sign Unable to Pay for Housing in the Last Year: No Number of Times Moved in the Last Year: 0 Homeless in the Last Year: No Recent Concern: Housing Stability - High Risk (02/05/2024) Housing Stability Vital Sign Unable to Pay for Housing in the Last Year: Patient unable to answer Number of Times Moved in the Last Year: 0 Homeless in the Last Year: Yes Family History: Family History Problem Relation Name Age of Onset No Known Problems Mother No Known Problems Father Medications Prior to Admission: No current facility-administered medications on file prior to encounter. Current Outpatient Medications on File Prior to Encounter Medication Sig Dispense Refill cloNIDine (Catapres) 0.1 MG tablet Take 0.1 mg by mouth 2 times daily. hydrOXYzine HCl (Atarax) 50 MG tablet Take 1 tablet (50 mg) by mouth every 8 hours as needed for itching. 90 tablet 0 metoprolol succinate XL (Toprol-XL) 50 MG 24 hr tablet Take 1 tablet (50 mg) by mouth daily. Do notcrush or chew. 30 tablet 1 pantoprazole (ProtoNix) 40 MG EC tablet Take 1 tablet (40 mg) by mouth 2 times daily (before meals). Do not crush, chew, or split. 60 tablet 0 risperiDONE (RisperDAL) 0.5 MG tablet Take 2 tablets (1 mg) by mouth 2 times daily. 60 tablet 1 venlafaxine XR (Effexor XR) 75 MG 24 hr capsule Take 1 capsule (75 mg) by mouth daily (with breakfast). Do not crush or chew. 30 capsule 1 doxylamine (Unisom) 25 MG tablet Take 1 tablet (25 mg) by mouth Nightly as needed for sleep. 30 tablet 0 [DISCONTINUED] Melatonin 3 MG capsule Take 3 mg by mouth Nightly. 30 capsule 0 [DISCONTINUED] metoprolol succinate XL (Toprol-XL) 50 MG 24 hr tablet Take 1 tablet (50 mg) by mouth daily. Do not crush or chew. 30 tablet 1 [DISCONTINUED] propranolol (Inderal) 20 MG tablet Take 1 tablet (20 mg) by mouth 3 times daily as needed (anxiety). 90 tablet 1 [DISCONTINUED] risperiDONE (RisperDAL) 0.5 MG tablet Take 1 tablet (0.5 mg) by mouth Nightly. 30 tablet 1 [DISCONTINUED] risperiDONE (RisperDAL) 0.5 MG tablet Take 2 tablets (1 mg) by mouth 2 times daily. 30 tablet 1 Allergies: No Known Allergies REVIEW OF SYSTEMS: Constitutional: Negative for fever, chills, activity change and unexpected weight change. HEENT: Negative for congestion, postnasal drip and sneezing. Eyes: Negative for itching and visual disturbance. Respiratory: Negative for apnea, cough, choking, chest tightness, shortness of breath, wheezing andstridor. Cardiovascular: Negative for chest pain. Gastrointestinal: Negative for nausea, vomiting, abdominal pain, diarrhea and blood in stool. Genitourinary: Negative for dysuria, frequency and flank pain. Musculoskeletal: Negative for myalgias and joint swelling. Skin: Negative for rash. Neurological: Negative for dizziness, tremors, seizures, syncope, facial asymmetry, speech difficulty, weakness, numbness and headaches. Hematological: Negative for adenopathy. Psychiatric/Behavioral: Negative for suicidal ideas, behavioral problems, self- injury and dysphoricmood. Vitals: BP (!) 153/103 (BP Location: Right arm, Patient Position: Sitting) Pulse 93 Temp 36.8 C (98.3 F) (Temporal) Resp 18 Ht 6' 1 (1.854 m) Wt 245 lb (111 kg) SpO2 95% BMI 32.32 kg/m BMI Classification: Obese (BMI 30.0-39.9) Pulse Ox: SpO2 Av.3 % Min: 95 % Max: 99 % Supplemental O2: PHYSICAL EXAM: Physical Exam Constitutional: Appearance: He is obese. He is ill-appearing. Cardiovascular: Rate and Rhythm: Normal rate. Heart sounds: No murmur heard. Pulmonary: Effort: No respiratory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 No Known Problems Father SOCIAL HISTORY Social History Socioeconomic History Marital status: Single Tobacco Use Smoking status: Every Day Current packs/day: 1.00 Types: Cigarettes Smokeless tobacco: Never Vaping Use Vaping status: Never Used Substance and Sexual Activity Alcohol use: Yes Comment: 2/5 vodka daily Drug use: Not Currently Types: Cocaine, Methamphetamines, Oxycodone, Fentanyl, Heroin, Benzodiazepines Sexual activity: Not Currently Social Drivers of Health Financial Resource Strain: Low Risk (02/05/2024) Overall Financial Resource Strain (CARDIA) Difficulty of Paying Living Expenses: Not hard at all Recent Concern: Financial Resource Strain - Medium Risk (12/14/2023) Overall Financial Resource Strain (CARDIA) Difficulty of Paying Living Expenses: Somewhat hard Food Insecurity: No Food Insecurity (02/05/2024) Hunger Vital Sign Worried About Running Out of Food in the Last Year: Never true Ran Out of Food in the Last Year: Never true Transportation Needs: No Transportation Needs (02/05/2024) PRAPARE - Transportation Lack of Transportation (Medical): No Lack of Transportation (Non-Medical): No Recent Concern: Transportation Needs - Unmet Transportation Needs (12/16/2023) PRAPARE - Transportation Lack of Transportation (Medical): Yes Lack of Transportation (Non-Medical): Yes Physical Activity: Inactive (02/05/2024) Exercise Vital Sign Days of Exercise per Week: 0 days Minutes of Exercise per Session: 0 min Stress: Stress Concern Present (02/05/2024) [employer] - Occupational Stress Questionnaire Feeling of Stress : To some extent Social Connections: Socially Isolated (02/05/2024) Social Connection and Isolation Panel [NHANES] Frequency of Communication with Friends and Family: More than three times a week Frequency of Social Gatherings with Friends and Family: More than three times a week Attends [employer] Services: Never Active Member of Clubs or Organizations: No Attends Club or Organization Meetings: Never Marital Status: Never Intimate Partner Violence: Not At Risk (02/05/2024) Humiliation, Afraid, Rape, and Kick questionnaire Fear of Current or Ex-Partner: No Emotionally Abused: No Physically Abused: No Sexually Abused: No Housing Stability: High Risk (02/05/2024) Housing Stability Vital Sign Unable to Pay for Housing in the Last Year: Patient unable to answer Number of Times Moved in the Last Year: 0 Homeless in the Last Year: Yes SCREENINGS Efren Coma Scale Best Eye Response: Spontaneous Best Verbal Response: Oriented Best Motor Response: Follows commands Efren Coma Scale Score: 15 PHYSICAL EXAM ED Triage Vitals [04/04/24 0410] Temp Heart Rate Resp BP 36.6 C (97.9 F) 104 16 (!) 169/113 SpO2 Temp Source Heart Rate Source Patient Position 99 % Temporal Monitor -- BP Location FiO2 (%) -- -- General: A&O x 3, well appearing, no acute distress Head: NC/AT Eyes: Atraumatic, EOMI, clear conjunctival, PERRLA Nose: Atraumatic, no skin changes Throat: Moist mucus membranes, uvula midline, oropharynx clear Neck: atraumatic, Supple, no lymphadenopathy, no stiffness or restricted ROM Heart: Normal rate and regular rhythm, no m/r/g Lungs: CTA bilaterally, no crackles or wheezes, no respiratory distress Abd: Soft, nontender, nondistended, no guarding Back: atraumatic, no step-off, No midline vertebral ttp, no CVA tenderness bilaterally Extremity: warm, no clubbing or edema, 2+ pulses bilateral radial pulse bilaterally, 2+ PT pulses bilaterally Neurologic: Non focal exam, moving all extremities spontaneously, normal gait Skin: warm, dry, no obvious rashes DIAGNOSTIC RESULTS Procedures/EKG: EKG was reviewed by myself. Physician EKG interpretation can be found below in [facility] RADIOLOGY (Per Emergency Physician): As per below in [facility] section Interpretation per the Radiologist below, if available at the time of this note: CT abdomen pelvis w contrast Final Result 1. Mild peripancreatic fat stranding and edema; correlate with mild acute pancreatitis. 2. The liver demonstrates generalized diminished attenuation as compared to the spleen, compatible with hepatic steatosis. Report Dictated on Electronically Signed By: Doug Parker MD Electronically Signed Date/Time: 04/04/2024 5:54 AM EST ED BEDSIDE ULTRASOUND: Performed by ED Physician - none LABS: Labs Reviewed CBC WITH AUTO DIFFERENTIAL - Abnormal Result Value Auto WBC 5.9 RBC 5.11 Hemoglobin 15.0 Hematocrit 44.7 MCV 87.5 MCH 29.4 MCHC 33.6 RDW 15.3 (*) Platelets 260 MPV 9.8 nRBC 0.0 Neutrophils Relative 34.2 (*) Lymphocytes Relative 56.1 (*) Monocytes Relative 8.2 Eosinophils Relative 0.5 Basophils Relative 0.8 Immature Grans % 0.2 Neutrophils Absolute 2.0 Lymphocytes Absolute 3.3 Monocytes Absolute 0.5 Eosinophils Absolute 0.0 Basophils Absolute 0.1 Immature Grans Absolute 0.0 COMPREHENSIVE METABOLIC PANEL - Abnormal SODIUM 137 POTASSIUM 3.5 CHLORIDE 102 CARBON DIOXIDE 21 (*) ANION GAP 14 (*) UREA NITROGEN 4 (*) CREATININE 0.72 GLUCOSE 150 (*) CALCIUM 9.3 AST (SGOT) 258 (*) ALT 166 (*) ALKALINE PHOSPHATASE 183 (*) ALBUMIN 4.3 BILIRUBIN, TOTAL 1.0 TOTAL PROTEIN 8.0 eGFR >90.0 LIPASE - Abnormal LIPASE 101 (*) LACTIC ACID WITH REFLEX - Abnormal LACTIC ACID 2.6 (*) COMPLETE URINALYSIS - Normal Color, Urine Light Yellow Clarity, Urine Clear pH, Urine 6.0 Leukocytes, Urine Negative Nitrite, Urine Negative Protein, Urine Negative Glucose, Urine Normal Bilirubin, Urine Negative Ketones, Urine Negative Urobilinogen, Urine Normal Blood, Urine Negative SPECIFIC GRAVITY OF URINE (NUMERIC) 1.008 COMPLETE URINALYSIS WITH REFLEX TO CULTURE Narrative: The following orders were created for panel order Urinalysis Complete with reflex to Culture. Procedure Abnormality Status --------- ------ Complete Urinalysis[[id number]] Normal Final result Please view results for these tests on the individual orders. All other labs were within normal range or not returned as of this dictation. EMERGENCY DEPARTMENT COURSE and DIFFERENTIAL DIAGNOSIS/MDM: Vitals: Vitals: 04/04/24 0410 04/04/2440904/04/24 0612 BP: (!) 169/113 (!) 163/105 Pulse: 104 105 Resp: 16 Temp: 36.6 C (97.9 F) TempSrc: Temporal SpO2: 99% 95% Weight: 111 kg (245 lb) Height: 1.854 m (6' 1) Diagnoses as of 04/04/24 0616 Alcohol-induced acute pancreatitis, unspecified complication status Alcohol withdrawal syndrome without complication (HCC) Medications thiamine (Vitamin B1) tablet 100 mg (has no administration in time range) folic acid (Folvite) tablet 1 mg (has no administration in time range) ondansetron (Zofran) injection 4 mg (4 mg IntraVENous Given 04/04/24 0439) morphine injection 4 mg (4 mg IntraVENous Given 04/04/24 0438) famotidine (Pepcid) 20 mg in sodium chloride (PF) 0.9 % 10 mL injection (20 mg IntraVENous Given 04/04/24 0439) lidocaine (Xylocaine) 2 % mouth solution 5 mL (5 mL Mouth/Throat Given 04/04/24 0437) And aluminum & magnesium hydroxide-simethicone (Mylanta) 200-200-20 MG/5ML oral suspension 20 mL (20 mL Oral Given 04/04/24 0437) iopamidol (Isovue-370) 76 % injection 75 mL (75 mL IntraVENous Given 04/04/24 0534) morphine injection 2 mg (2 mg IntraVENous Given 04/04/24 0615) LORazepam (Ativan) injection 1 mg (1 mg IntraVENous Given 04/04/24 0614) Patient with hx of pancreatitis, presents to the ED with a chief complaint of epig abd pain. On exam, vitals stable. Epig mildly ttp. Otherwise per above (Differential diagnosis) With consideration of age, sex/gender, risk factors, to evaluate patient for high risk causes of morbidity and mortality such as, but not limited to, Pancreatitis vs cholecystitis vs gastritis vs acute infectious process vs other Today we will obtain cbc, bmp, hepatic function panel, lipase, UA, imaging We will also provide medical/symptomatic management with pain control. Diagnostic tests considered but not performed: CT pending work up. Patient has had numerous Cts, will defer pending the labw ork Independently reviewed external documents including previous admission. Per chart review, patient has been followed for or diagnosed with pancreatitis in the past. Patient's condition and/or care wasimpacted by these chronic conditions. Will consider these factors in evaluation and management for today's care. Discussed plan with patient who agrees with current plan. REVAL: End of visit medical decision making Patient was reassessed. Resting comfortably. No acute distress. Independently reviewed and interpreted the lab results which demonstrated the following: no leukocytosis, no sig anemia, no major electrolyte abnl, elevated LFTs, mildly elevated lipase at 101, LA elevated 2.6 however low concerns of sepsis at this time, lactic acidosis from alcoholic ketosis Independently reviewed the reports of other imaging which demonstrated the following: Mild peripancreatic fat stranding and edema; correlate with mild acute pancreatitis. 2. The liver demonstrates generalized diminished attenuation as compared to the spleen, compatible with hepatic steatosis. Response to medical management provided in the ED: Patient initially having improvement in symptomshowever pain is returning. Patient also now feeling agitated and anxious. After thorough discussionwith the patient, patient reports that he is finally tired of all of these pancreatitis bouts. Patient is fully interested in getting detox of alcohol. Drinks 1/2 -1 gallon of vodka daily Last drink just prior to arrival in the parking lot (Consults) Discussed care with: Discussed case with tax consultant, admitting team. They agree with current work up and management. They will evaluate and provide further recommendations, please refer totheir note for detailed explanation. Will admit Discussed all results with patient and/or family members. They verbalize understanding. Offered admission for further management. Discussed risks, benefits and alternatives for further management in the hospital. Due to high risk of morbidity and mortality of the stated findings and results, patient will be admitted for further management and care. Patient is agreeable to the plan. Discussed patient, presentation and workup with admitting team. Admitting team is agreeable to current workup and evaluation. They will admit the patient and provide further care. Pending results to be followed by primary admitting team. Patient will need med tele level of care and not appropriate for lower acuity location of care due to risk of morbidity and mortality Patient's condition and/or care was impacted by alcoholism Patient's condition and/or care was significantly impacted by social determinants of health including: none CRITICAL CARE TIME CONSULTS: None PROCEDURES: Unless otherwise noted below, none Procedures Patients symptoms are consistent with sepsis, severe sepsis, or septic shock (If yes use .sepsiscoremeasure): FINAL IMPRESSION 1. Alcohol-induced acute pancreatitis, unspecified complication status 2. Alcohol withdrawal syndrome without complication (HCC) DISPOSITION Discharge 04/04/2024 06:03:20 AM PATIENT REFERRED TO: No follow-up provider specified. DISCHARGE MEDICATIONS: New Prescriptions No medications on file (Comment: Please note this report has been produced using speech recognition software and may contain errors related to that system including errors in grammar, punctuation, and spelling, as well as words and phrases that may be inappropriate. If there are any questions or concerns please feel freeto contact the dictating provider for clarification.) Enio Boyd DO (electronically signed) Emergency Medicine Provider Enio Boyd DO 04/04/24 0644 documented in this [facility]02-24-2025 Physician Emergency department Note* Enio Boyd DO - 04/04/2024 4:09 AM EST EMERGENCY DEPARTMENT ENCOUNTER Pt Name: Roro Valdivia Birthdate 1985 Date of evaluation: 04/04/2024 ED Provider: Enio Boyd DO CHIEF COMPLAINT Chief Complaint Patient presents with Abdominal Pain 1 day worsening HISTORY OF PRESENT ILLNESS (Location/Symptom, Timing/Onset, Context/Setting, Quality, Duration, Modifying Factors, Severity) Note limiting factors. I wore appropriate PPE for the entirety of this encounter. HPI Roro Valdivia is a 38 y.o. with history of pancreatitis and gastritis, EtOH use who presents to the emergency department with chief complaint of epigastric abdominal pain. Patient reports that he started having severe epigastric abdominal pain earlier tonight, then when he arrived here to the parking lot the pain went away. While he was waiting to see if he came back the pain did come back. He endorses nausea and vomiting. Denies other symptoms of fevers, chills, chest pain, shortness of breath, diarrhea, constipation, dysuria, hematuria. No known sick contact. No recent travel. Nursing Notes were reviewed. Limitations to history: none Outside historians: none REVIEW OF SYSTEMS Review of Systems Pertinent positives and negatives as per HPI. PAST MEDICAL HISTORY Past Medical History: Diagnosis Date Addiction to drug ([facility]) ([facility]) Alcohol abuse Alcohol withdrawal syndrome without complication ([facility]) 06/27/2022 Alcohol withdrawal with inpatient treatment, uncomplicated ([facility]) 03/15/2022 GERD (gastroesophageal reflux disease) History of pancreatitis 01/07/2023 Hypertension Pancreatitis Seizures ([facility]) SVT (supraventricular tachycardia) ([facility]) Tourette syndrome SURGICAL HISTORY Past Surgical History: Procedure Laterality Date APPENDECTOMY CURRENT MEDICATIONS Previous Medications DOXYLAMINE (UNISOM) 25 MG TABLET Take 1 tablet (25 mg) by mouth Nightly as needed for sleep. HYDROXYZINE HCL (ATARAX) 50 MG TABLET Take 1 tablet (50 mg) by mouth every 8 hours as needed for itching. METOPROLOL SUCCINATE XL (TOPROL-XL) 50 MG 24 HR TABLET Take 1 tablet (50 mg) by mouth daily. Do notcrush or chew. PANTOPRAZOLE (PROTONIX) 40 MG EC TABLET Take 1 tablet (40 mg) by mouth 2 times daily (before meals). Do not crush, chew, or split. RISPERIDONE (RISPERDAL) 0.5 MG TABLET Take 2 tablets (1 mg) by mouth 2 times daily. VENLAFAXINE XR (EFFEXOR XR) 75 MG 24 HR CAPSULE Take 1 capsule (75 mg) by mouth daily (with breakfast). Do not crush or chew. ALLERGIES Patient has no known allergies. FAMILY HISTORY Family History Problem Relation Name Age of Onset No Known Problems Mother No Known Problems Father SOCIAL HISTORY Social History Socioeconomic History Marital status: Single Tobacco Use Smoking status: Every Day Current packs/day: 1.00 Types: Cigarettes Smokeless tobacco: Never Vaping Use Vaping status: Never Used Substance and Sexual Activity Alcohol use: Yes Comment: 2/5 vodka daily Drug use: Not Currently Types: Cocaine, Methamphetamines, Oxycodone, Fentanyl, Heroin, Benzodiazepines Sexual activity: Not Currently Social Drivers of Health Financial Resource Strain: Low Risk (02/05/2024) Overall Financial Resource Strain (CARDIA) Difficulty of Paying Living Expenses: Not hard at all Recent Concern: Financial Resource Strain - Medium Risk (12/14/2023) Overall Financial Resource Strain (CARDIA) Difficulty of Paying Living Expenses: Somewhat hard Food Insecurity: No Food Insecurity (02/05/2024) Hunger Vital Sign Worried About Running Out of Food in the Last Year: Never true Ran Out of Food in the Last Year: Never true Transportation Needs: No Transportation Needs (02/05/2024) PRAPARE - Transportation Lack of Transportation (Medical): No Lack of Transportation (Non-Medical): No Recent Concern: Transportation Needs - Unmet Transportation Needs (12/16/2023) PRAPARE - Transportation Lack of Transportation (Medical): Yes Lack of Transportation (Non-Medical): Yes Physical Activity: Inactive (02/05/2024) Exercise Vital Sign Days of Exercise per Week: 0 days Minutes of Exercise per Session: 0 min Stress: Stress Concern Present (02/05/2024) [employer] - Occupational Stress Questionnaire Feeling of Stress : To some extent Social Connections: Socially Isolated (02/05/2024) Social Connection and Isolation Panel [NHANES] Frequency of Communication with Friends and Family: More than three times a week Frequency of Social Gatherings with Friends and Family: More than three times a week Attends [employer] Services: Never Active Member of Clubs or Organizations: No Attends Club or Organization Meetings: Never Marital Status: Never Intimate Partner Violence: Not At Risk (02/05/2024) Humiliation, Afraid, Rape, and Kick questionnaire Fear of Current or Ex-Partner: No Emotionally Abused: No Physically Abused: No Sexually Abused: No Housing Stability: High Risk (02/05/2024) Housing Stability Vital Sign Unable to Pay for Housing in the Last Year: Patient unable to answer Number of Times Moved in the Last Year: 0 Homeless in the Last Year: Yes SCREENINGS Efren Coma Scale Best Eye Response: Spontaneous Best Verbal Response: Oriented Best Motor Response: Follows commands [place] Coma Scale Score: 15 PHYSICAL EXAM ED Triage Vitals [04/04/24 0410] Temp Heart Rate Resp BP 36.6 C (97.9 F) 104 16 (!) 169/113 SpO2 Temp Source Heart Rate Source Patient Position 99 % Temporal Monitor -- BP Location FiO2 (%) -- -- General: A&O x 3, well appearing, no acute distress Head: NC/AT Eyes: Atraumatic, EOMI, clear conjunctival, PERRLA Nose: Atraumatic, no skin changes Throat: Moist mucus membranes, uvula midline, oropharynx clear Neck: atraumatic, Supple, no lymphadenopathy, no stiffness or restricted ROM Heart: Normal rate and regular rhythm, no m/r/g Lungs: CTA bilaterally, no crackles or wheezes, no respiratory distress Abd: Soft, nontender, nondistended, no guarding Back: atraumatic, no step-off, No midline vertebral ttp, no CVA tenderness bilaterally Extremity: warm, no clubbing or edema, 2+ pulses bilateral radial pulse bilaterally, 2+ PT pulses bilaterally Neurologic: Non focal exam, moving all extremities spontaneously, normal gait Skin: warm, dry, no obvious rashes DIAGNOSTIC RESULTS Procedures/EKG: EKG was reviewed by myself. Physician EKG interpretation can be found below in [facility] RADIOLOGY (Per Emergency Physician): As per below in [facility] section Interpretation per the Radiologist below, if available at the time of this note: CT abdomen pelvis w contrast Final Result 1. Mild peripancreatic fat stranding and edema; correlate with mild acute pancreatitis. 2. The liver demonstrates generalized diminished attenuation as compared to the spleen, compatible with hepatic steatosis. Report Dictated on Electronically Signed By: Doug Parker MD Electronically Signed Date/Time: 04/04/2024 5:54 AM EST ED BEDSIDE ULTRASOUND: Performed by ED Physician - none LABS: Labs Reviewed CBC WITH AUTO DIFFERENTIAL - Abnormal Result Value Auto WBC 5.9 RBC 5.11 Hemoglobin 15.0 Hematocrit 44.7 MCV 87.5 MCH 29.4 MCHC 33.6 RDW 15.3 (*) Platelets 260 MPV 9.8 nRBC 0.0 Neutrophils Relative 34.2 (*) Lymphocytes Relative 56.1 (*) Monocytes Relative 8.2 Eosinophils Relative 0.5 Basophils Relative 0.8 Immature Grans % 0.2 Neutrophils Absolute 2.0 Lymphocytes Absolute 3.3 Monocytes Absolute 0.5 Eosinophils Absolute 0.0 Basophils Absolute 0.1 Immature Grans Absolute 0.0 COMPREHENSIVE METABOLIC PANEL - Abnormal SODIUM 137 POTASSIUM 3.5 CHLORIDE 102 CARBON DIOXIDE 21 (*) ANION GAP 14 (*) UREA NITROGEN 4 (*) CREATININE 0.72 GLUCOSE 150 (*) CALCIUM 9.3 AST (SGOT) 258 (*) ALT 166 (*) ALKALINE PHOSPHATASE 183 (*) ALBUMIN 4.3 BILIRUBIN, TOTAL 1.0 TOTAL PROTEIN 8.0 eGFR >90.0 LIPASE - Abnormal LIPASE 101 (*) LACTIC ACID WITH REFLEX - Abnormal LACTIC ACID 2.6 (*) COMPLETE URINALYSIS - Normal Color, Urine Light Yellow Clarity, Urine Clear pH, Urine 6.0 Leukocytes, Urine Negative Nitrite, Urine Negative Protein, Urine Negative Glucose, Urine Normal Bilirubin, Urine Negative Ketones, Urine Negative Urobilinogen, Urine Normal Blood, Urine Negative SPECIFIC GRAVITY OF URINE (NUMERIC) 1.008 COMPLETE URINALYSIS WITH REFLEX TO CULTURE Narrative: The following orders were created for panel order Urinalysis Complete with reflex to Culture. Procedure Abnormality Status --------- ------ Complete Urinalysis[[id number]] Normal Final result Please view results for these tests on the individual orders. All other labs were within normal range or not returned as of this dictation. EMERGENCY DEPARTMENT COURSE and DIFFERENTIAL DIAGNOSIS/MDM: Vitals: Vitals: 04/04/240 04/04/2440904/04/24611 BP: (!) 169/113 (!) 163/105 Pulse: 104 105 Resp: 16 Temp: 36.6 C (97.9 F) TempSrc: Temporal SpO2: 99% 95% Weight: 111 kg (245 lb) Height: 1.854 m (6' 1) Diagnoses as of 04/04/24 0616 Alcohol-induced acute pancreatitis, unspecified complication status Alcohol withdrawal syndrome without complication (HCC) Medications thiamine (Vitamin B1) tablet 100 mg (has no administration in time range) folic acid (Folvite) tablet 1 mg (has no administration in time range) ondansetron (Zofran) injection 4 mg (4 mg IntraVENous Given 04/04/24438) morphine injection 4 mg (4 mg IntraVENous Given 04/04/248) famotidine (Pepcid) 20 mg in sodium chloride (PF) 0.9 % 10 mL injection (20 mg IntraVENous Given 04/04/24438) lidocaine (Xylocaine) 2 % mouth solution 5 mL (5 mL Mouth/Throat Given 04/04/24436) And aluminum & magnesium hydroxide-simethicone (Mylanta) 200-200-20 MG/5ML oral suspension 20 mL (20 mL Oral Given 04/04/247) iopamidol (Isovue-370) 76 % injection 75 mL (75 mL IntraVENous Given 04/04/24 8398) morphine injection 2 mg (2 mg IntraVENous Given 04/04/24 0615) LORazepam (Ativan) injection 1 mg (1 mg IntraVENous Given 04/04/24 0614) Patient with hx of pancreatitis, presents to the ED with a chief complaint of epig abd pain. On exam, vitals stable. Epig mildly ttp. Otherwise per above (Differential diagnosis) With consideration of age, sex/gender, risk factors, to evaluate patient for high risk causes of morbidity and mortality such as, but not limited to, Pancreatitis vs cholecystitis vs gastritis vs acute infectious process vs other Today we will obtain cbc, bmp, hepatic function panel, lipase, UA, imaging We will also provide medical/symptomatic management with pain control. Diagnostic tests considered but not performed: CT pending work up. Patient has had numerous Cts, will defer pending the labw ork Independently reviewed external documents including previous admission. Per chart review, patient has been followed for or diagnosed with pancreatitis in the past. Patient's condition and/or care wasimpacted by these chronic conditions. Will consider these factors in evaluation and management for today's care. Discussed plan with patient who agrees with current plan. REVAL: End of visit medical decision making Patient was reassessed. Resting comfortably. No acute distress. Independently reviewed and interpreted the lab results which demonstrated the following: no leukocytosis, no sig anemia, no major electrolyte abnl, elevated LFTs, mildly elevated lipase at 101, LA elevated 2.6 however low concerns of sepsis at this time, lactic acidosis from alcoholic ketosis Independently reviewed the reports of other imaging which demonstrated the following: Mild peripancreatic fat stranding and edema; correlate with mild acute pancreatitis. 2. The liver demonstrates generalized diminished attenuation as compared to the spleen, compatible with hepatic steatosis. Response to medical management provided in the ED: Patient initially having improvement in symptomshowever pain is returning. Patient also now feeling agitated and anxious. After thorough discussionwith the patient, patient reports that he is finally tired of all of these pancreatitis bouts. Patient is fully interested in getting detox of alcohol. Drinks 1/2 -1 gallon of vodka daily Last drink just prior to arrival in the parking lot (Consults) Discussed care with: Discussed case with tax consultant, admitting team. They agree with current work up and management. They will evaluate and provide further recommendations, please refer totheir note for detailed explanation. Will admit Discussed all results with patient and/or family members. They verbalize understanding. Offered admission for further management. Discussed risks, benefits and alternatives for further management in the hospital. Due to high risk of morbidity and mortality of the stated findings and results, patient will be admitted for further management and care. Patient is agreeable to the plan. Discussed patient, presentation and workup with admitting team. Admitting team is agreeable to current workup and evaluation. They will admit the patient and provide further care. Pending results to be followed by primary admitting team. Patient will need med tele level of care and not appropriate for lower acuity location of care due to risk of morbidity and mortality Patient's condition and/or care was impacted by alcoholism Patient's condition and/or care was significantly impacted by social determinants of health including: none CRITICAL CARE TIME CONSULTS: None PROCEDURES: Unless otherwise noted below, none Procedures Patients symptoms are consistent with sepsis, severe sepsis, or septic shock (If yes use .sepsiscoremeasure): FINAL IMPRESSION 1. Alcohol-induced acute pancreatitis, unspecified complication status 2. Alcohol withdrawal syndrome without complication (HCC) DISPOSITION Discharge 04/04/2024 06:03:20 AM PATIENT REFERRED TO: No follow-up provider specified. DISCHARGE MEDICATIONS: New Prescriptions No medications on file (Comment: Please note this report has been produced using speech recognition software and may contain errors related to that system including errors in grammar, punctuation, and spelling, as well as words and phrases that may be inappropriate. If there are any questions or concerns please feel freeto contact the dictating provider for clarification.) Enio Boyd DO (electronically signed) Emergency Medicine Provider Enio Boyd DO 04/04/24 0644 [facility] [id number] History of Present illness Narrative* Nikky Escobar MD - 03/30/2024 2:00 PM EST Images from the original note were not included. MEDICATION ASSISTED TREATMENT FOLLOW UP VISIT Patient: Roro Valdivia __ Patient was identified and seen today via Telehealth by agreement and consent. I used the followingTelehealth technology: Audio and video capabilities. Patient location: Patient Location: Home. This patient encounter is appropriate and reasonable under the circumstances: transportation issues .The patient has been advised of the potential risks and limitations of this mode of treatment (inclu ding but not limited to the absence of in-person examination) and has agreed to be treated in a remote fashion in spite of them. Any and all of the patient's/patient's family's questions on this issue have been answered and I have made no promises or guarantees to the patient. The patient has also been advised to contact this office for worsening conditions or problems, and seek emergency medicaltreatment and/or call 911 if the patient deems either necessary. The patient stated that they [facility]. If the patient is a minor, permission has been obtained by the parentor guardian for the patient to receive medical care at this visit. Chief complaint Subjective Roro Paige Migdaliakacey, a 38 y.o. male, who presents for a follow-up MAT appointment. -Last saw Roro in office about 5 months, have seen on detox previously -recently seen in ED for gastritis 2/2 to alcohol use -drinking everyday, drinking half proof liquor, about 1 pint a week -still taking 1mg risperdal BID, effexor 75mg daily, hydroxyzine -didn't end up going to [facility] -living at home with mom, made up with her and she allowed him back home -discussed incorporating therapy through [facility] - will check in on this goal -pre-contemplative with alcohol use currently -still currently smoking nioctine Denies suicidal or homicidal ideation denies tactile auditory or visual hallucinations today All of systems ROS was completed and was negative unless stated above Objective Physical Exam Constitutional: General: He is not in acute distress. Appearance: He is not diaphoretic. HENT: Head: Normocephalic and atraumatic. Nose: No rhinorrhea. Cardiovascular: Rate and Rhythm: Normal rate. Pulmonary: Effort: Pulmonary effort is normal. No respiratory distress. Neurological: Mental Status: He is alert and oriented to person, place, and time. Comments: Various motor tics noted Psychiatric: Attention and Perception: He does not perceive auditory or visual hallucinations. Mood and Affect: Mood is not anxious or depressed. Behavior: Behavior is cooperative. Thought Content: Thought content does not include homicidal or suicidal ideation. Current Outpatient Medications Medication Sig Dispense Refill doxylamine (Unisom) 25 MG tablet Take 1 tablet (25 mg) by mouth Nightly as needed for sleep. 30 tablet 0 hydrOXYzine HCl (Atarax) 50 MG tablet Take 1 tablet (50 mg) by mouth every 8 hours as needed for itching. 90 tablet 0 metoprolol succinate XL (Toprol-XL) 50 MG 24 hr tablet Take 1 tablet (50 mg) by mouth daily. Do notcrush or chew. 30 tablet 1 pantoprazole (ProtoNix) 40 MG EC tablet Take 1 tablet (40 mg) by mouth 2 times daily (before meals). Do not crush, chew, or split. 60 tablet 0 risperiDONE (RisperDAL) 0.5 MG tablet Take 2 tablets (1 mg) by mouth 2 times daily. 30 tablet 1 venlafaxine XR (Effexor XR) 75 MG 24 hr capsule Take 1 capsule (75 mg) by mouth daily (with breakfast). Do not crush or chew. 30 capsule 1 No current facility-administered medications for this visit. OARRS: Reviewed and no inconsistencies or concerns. Assessment & Plan No diagnosis found. No orders of the defined types were placed in this encounter. Severe opioid use disorder (HCC), in remission Severe Alcohol Use Disorder BZD use disorder in remission Stimulant use disorder in remission Nicotine Use disorder -discontinued suboxone abruptly, discussed not restarting this -has drank about 4 times, 3-4 beers each episode MDD RODRIGUEZ Tourette Disorder -continue risperidone to 1mg BID for Tourettes, increase prn melatonin to 10mg nightly for insomnia -taking effexor to 75mg every other day then discontinue; atarax 50mg prn for anxiety Patient Goals: 1. Continue 12-step meeting attendance (goal of 2 per week). 2. Actively communicate with sponsor. 3. Take medication as directed and report any negative side effects or missed doses. 4. Report any illicit drug use to either the briefcase sewer or myself/my staff. 5. Keep medicine out of the reach of children. 6. Follow-up with recommended level of care. Interventions in Session: 1. Discussed patient's progress in their 12-step program. 2. Discussed progress in recovery and overall well-being. 3. Discussed stressors/triggers for a potential relapse & related coping mechanisms. -Follow up in 1 month This patient was staffed with Dr. Orta. Nikky Escobar MD Addiction Medicine 03/30/2024 at 4:29 PM Cosigned by Carlitos Orta MD at 03/31/2024 11:27 AM EST Associated attestation - Carlitos Orta MD - 03/31/2024 11:27 AM EST Indirect Supervision Attestation During or immediately after this visit, I discussed this case with the treating fellow. Our discussion included the history obtained by the fellow, the fellow's exam findings, and the fellow's treatment plan. I agree with the assessment and plan as documented in the fellow's note (and any addendum's are listed below). Please see fellow s note for further details. This service has been performed by a fellow without the presence of a teaching physician under the primary care exception (GE Modifier). documented in this encounterSDayton Children's [id number] Telephone encounter Note* Telephone Encounter - Branden Maldonado - 03/29/2024 3:08 PM EST LVM for patient, advising ok for virtual per Dr. Escobar Appt has been updated to virtual [facility] [id number] Miscellaneous Notes* Telephone Encounter - Branden Maldonado - 03/29/2024 3:08 PM EST LVM for patient, advising ok for virtual per Dr. Escobar Appt has been updated to virtual * Telephone Encounter - Branden Maldonado - 03/29/2024 1:30 PM EST Is it ok to move patient to a virtual appointment? * Telephone Encounter - Aydee Ontiveros - 03/29/2024 10:01 AM EST Name of Caller: Roro Contact Reason for Appointment: Pt calling because he missed calls, I read to him about the appt change andhe is asking for VV appt for 2.18.25 instead of in office because he can't make that, if not he will have to reschedule. Please advise Office Name: Medication Refills need, if any: n/a Medication Name: n/a documented in this encounterSDayton Children's [id number] Telephone encounter Note* Telephone Encounter - Branden Begumer - 03/29/2024 1:30 PM EST Is it ok to move patient to a virtual appointment? [facility] [id number] Telephone encounter Note* Telephone Encounter - Aydee Ontiveros - 03/29/2024 10:01 AM EST Name of Caller: Roro Contact Reason for Appointment: Pt calling because he missed calls, I read to him about the appt change andhe is asking for VV appt for 2.18.25 instead of in office because he can't make that, if not he will have to reschedule. Please advise Office Name: BH Medication Refills need, if any: n/a Medication Name: n/a [facility] [id number] Emergency department Note* Adrian Zhang RN - 03/22/2024 4:27 PM EST Pt. Reports that he is still taking his prescribed BH meds. But he has cancelled 4 appts. & noshowed 2 appt. With [facility] provider Dr. Evelyn Escobar. The pt. Was scheduled with Shawn on 03/28/24 @ 1:15 PM @ the [facility]. Pt. Agrees to keep his appt. With provider & understands that the pt. Will be discharged from service if he cancels or no shows' again. Pt. Voiced understanding that he would require inpatient detox from alcohol & can return to [facility] ED for medical clearance or select one of the other facility detox provider that this ACC RN provided to pt.. [facility] [id number] Emergency department Note* Adrain Zhang RN - 03/22/2024 4:27 PM EST Pt. Reports that he is still taking his prescribed BH meds. But he has cancelled 4 appts. & noshowed 2 appt. With [facility] provider Dr. Evelyn Escobar. The pt. Was scheduled with Shawn on 03/28/24 @ 1:15 PM @ the [facility]. Pt. Agrees to keep his appt. With provider & understands that the pt. Will be discharged from service if he cancels or no shows' again. Pt. Voiced understanding that he would require inpatient detox from alcohol & can return to [facility] ED for medical clearance or select one of the other facility detox provider that this ACC RN provided to pt.. * Adrian Zhang RN - 03/22/2024 3:28 PM EST The following are the next steps in your Substance use Treatment Plan: Below are additional resources that you may find beneficial in your treatment: 12-Step: Alcohol Anonymous: [place]aa.org Sinan Anon: 923.229.7804: 12-step program for families & friends of people with addiction. CRISIS: Homeless Hotline: 281.571.7030 [facility] 01/09 line-01/09 OFFICE: [phone] [facility]: [address], [place] [address] [phone] (24 Hours) Domestic Violence help line anytime: 275.132.6280 Crisis Hotline: 01/09- 903.554.1950 ADM Addiction Helpline: 176.617.8921 (available 8:30 AM to 4:00 PM ) 2--1 2-1-1 helps people across [facility] find local resources when they don't know where to turn forhelp. We are available 24 hours a day, 7 days a week. For help, simply dial to speak to one of our trained professionals. DETOX TREATMENT: [facility] [place], [place] [phone] /ADM Crisis Center: anytime @ [phone] for alcohol & drug addiction help. [facility], [place], [place] [phone] [facility] [place]: [phone] [place], [place]: [phone], [facility] [place]: [phone] [place], [place] [phone] Adolescent detox [place], [place] [phone] [facility] [place]: [phone] [facility] [place], [place] [phone] [facility], [facility] & detox & Sober living [phone] [place], [place] (pt. must be medically cleared prior to admission in ED) [facility], [place], [place] [phone] OUTPATIENT TREATMENT: [facility] Addiction Health @ [place], [place] [phone]. 1st Step MAT Program @ [facility] ED: [phone] 1st Step MAT Program @ [facility] ED: [phone] Intensive Outpatient Programs- [facility] [place] [place] [phone] [place], [place] [phone] [facility] [place], [place] [phone] [facility] Addiction Treatment: [place], [place] [phone] or [phone]. [facility]: [phone] [facility], [place]: [phone], [place]: [phone] [facility], [place], [place]: [phone] [facility], [place], [place]: [phone] [facility], [place]: [phone], [place]: [phone] [facility] Ph[facility]. [place]: [phone] [facility], [place], [facility] & Sober living [phone] [facility], [place], [place] [phone] [facility] Behavioral Health Services: [phone] Behavioral Health Services: [facility]: [phone]-[phone], [facility]-[phone], [place]- [phone] [facility] Behavioral [facility], [place]: [phone], [place]: [phone] [facility] Behavioral [facility], [place], [place] [phone] [facility], [place], [place] [phone] [facility] [place], [place] [phone], fay services, dual dx. Tx. with detox. RESIDENTIAL TREATMENT FACILITIES: [facility] House: inpt. Or outpt. - [phone] [place], [place], [place] [phone] [facility], [place], [place] [phone] [facility] & Treatment Services (CATS) @ [facility] [phone] [facility] Residential tx., [place], [place] [phone] (admission coordinated by ADM Toby Vickers ext [phone]) [facility] [place], [place]: [phone]; Men's services inpt. & women services -Outpt. [facility], [place], [place] [phone] [facility], [place], [place] [phone] [facility]'s [facility], [place], [place] [phone] [facility], [place], [place] [phone] [facility], [place], [place] [phone] [facility] - [place], [place] [phone] [facility], [place], [place] [phone] [place], [place] [phone] [facility], [facility] & detox & Sober living [phone] OTHER SERVICES: [employer]: [phone] [facility]: [phone] ext. [phone] Medicaid Health Coverage: [employer]Rx. JFS: [phone] * JOSÉ ANTONIO Mercedes CNP - 03/22/2024 1:14 PM EST EMERGENCY DEPARTMENT ENCOUNTER Pt Name: Roro Valdivia Birthdate 1985 Date of evaluation: 03/22/2024 ED Provider: JOSÉ ANTONIO Mercedes CNP I have evaluated this patient on my own, per my scope of practice with an attending physician available for consultation. CHIEF COMPLAINT Chief Complaint Patient presents with Abdominal Pain Patient presents with what he says is pancreatitis. Patient endorses mid upper abdominal pain, and vomiting. HISTORY OF PRESENT ILLNESS (Location/Symptom, Timing/Onset, Context/Setting, Quality, Duration, Modifying Factors, Severity) Note limiting factors. I wore appropriate PPE for the entirety of this encounter. HPI Roro Valdivia is a 38 y.o. who presents to the emergency department with chief complaint of abdominal pain, nausea vomiting. Has a history of acute and chronic pancreatitis related to alcohol use disorder he has had multiple admissions for this over the last 6 months he has had mid upper abdominal pain and vomiting since yesterday. Denies fevers or chills. Nursing Notes were reviewed. Limitations to history: None Outside historians: None REVIEW OF SYSTEMS Review of Systems Constitutional: Negative for activity change, appetite change, chills and fever. HENT: Negative for congestion, nosebleeds, postnasal drip, sore throat and trouble swallowing. Eyes: Negative for pain and visual disturbance. Respiratory: Negative for cough and shortness of breath. Cardiovascular: Negative for chest pain. Gastrointestinal: Positive for abdominal pain, nausea and vomiting. Genitourinary: Negative for dysuria, flank pain, hematuria, penile discharge, scrotal swelling and testicular pain. Musculoskeletal: Negative for arthralgias, back pain and myalgias. Skin: Negative for rash and wound. Neurological: Negative for dizziness, syncope, weakness and light-headedness. Psychiatric/Behavioral: Negative for agitation and confusion. All other systems reviewed and are negative. Pertinent positives and negatives as per HPI. PAST MEDICAL HISTORY Past Medical History: Diagnosis Date Addiction to drug ([facility]) ([facility]) Alcohol abuse Alcohol withdrawal syndrome without complication ([facility]) 06/27/2022 Alcohol withdrawal with inpatient treatment, uncomplicated ([facility]) 03/15/2022 GERD (gastroesophageal reflux disease) History of pancreatitis 01/07/2023 Hypertension Pancreatitis Seizures ([facility]) SVT (supraventricular tachycardia) ([facility]) Tourette syndrome SURGICAL HISTORY Past Surgical History: Procedure Laterality Date APPENDECTOMY CURRENT MEDICATIONS Previous Medications MELATONIN 3 MG CAPSULE Take 3 mg by mouth Nightly. METOPROLOL SUCCINATE XL (TOPROL-XL) 50 MG 24 HR TABLET Take 1 tablet (50 mg) by mouth daily. Do notcrush or chew. PANTOPRAZOLE (PROTONIX) 40 MG EC TABLET Take 1 tablet (40 mg) by mouth 2 times daily (before meals). Do not crush, chew, or split. PROPRANOLOL (INDERAL) 20 MG TABLET Take 1 tablet (20 mg) by mouth 3 times daily as needed (anxiety). RISPERIDONE (RISPERDAL) 0.5 MG TABLET Take 1 tablet (0.5 mg) by mouth Nightly. VENLAFAXINE XR (EFFEXOR XR) 75 MG 24 HR CAPSULE Take 1 capsule (75 mg) by mouth daily (with breakfast). Do not crush or chew. ALLERGIES Patient has no known allergies. FAMILY HISTORY Family History Problem Relation Name Age of Onset No Known Problems Mother No Known Problems Father SOCIAL HISTORY Social History Socioeconomic History Marital status: Single Tobacco Use Smoking status: Every Day Current packs/day: 1.00 Types: Cigarettes Smokeless tobacco: Never Vaping Use Vaping status: Never Used Substance and Sexual Activity Alcohol use: Yes Comment: 2/5 vodka daily Drug use: Not Currently Types: Cocaine, Methamphetamines, Oxycodone, Fentanyl, Heroin, Benzodiazepines Sexual activity: Not Currently Social Drivers of Health Financial Resource Strain: Low Risk (02/05/2024) Overall Financial Resource Strain (CARDIA) Difficulty of Paying Living Expenses: Not hard at all Recent Concern: Financial Resource Strain - Medium Risk (12/14/2023) Overall Financial Resource Strain (CARDIA) Difficulty of Paying Living Expenses: Somewhat hard Food Insecurity: No Food Insecurity (02/05/2024) Hunger Vital Sign Worried About Running Out of Food in the Last Year: Never true Ran Out of Food in the Last Year: Never true Transportation Needs: No Transportation Needs (02/05/2024) PRAPARE - Transportation Lack of Transportation (Medical): No Lack of Transportation (Non-Medical): No Recent Concern: Transportation Needs - Unmet Transportation Needs (12/16/2023) PRAPARE - Transportation Lack of Transportation (Medical): Yes Lack of Transportation (Non-Medical): Yes Physical Activity: Inactive (02/05/2024) Exercise Vital Sign Days of Exercise per Week: 0 days Minutes of Exercise per Session: 0 min Stress: Stress Concern Present (02/05/2024) [employer] - Occupational Stress Questionnaire Feeling of Stress : To some extent Social Connections: Socially Isolated (02/05/2024) Social Connection and Isolation Panel [NHANES] Frequency of Communication with Friends and Family: More than three times a week Frequency of Social Gatherings with Friends and Family: More than three times a week Attends [employer] Services: Never Active Member of Clubs or Organizations: No Attends Club or Organization Meetings: Never Marital Status: Never Intimate Partner Violence: Not At Risk (02/05/2024) Humiliation, Afraid, Rape, and Kick questionnaire Fear of Current or Ex-Partner: No Emotionally Abused: No Physically Abused: No Sexually Abused: No Housing Stability: High Risk (02/05/2024) Housing Stability Vital Sign Unable to Pay for Housing in the Last Year: Patient unable to answer Number of Times Moved in the Last Year: 0 Homeless in the Last Year: Yes SCREENINGS PHYSICAL EXAM ED Triage Vitals [03/22/24 1317] Temp Heart Rate Resp BP 36.3 C (97.4 F) 107 18 (!) 178/119 SpO2 Temp Source Heart Rate Source Patient Position 97 % Temporal Monitor -- BP Location FiO2 (%) -- -- Physical Exam Vitals and nursing note reviewed. Constitutional: General: He is not in acute distress. Appearance: Normal appearance. He is normal weight. He is not ill-appearing or toxic-appearing. HENT: Head: Normocephalic and atraumatic. Right Ear: External ear normal. Left Ear: External ear normal. Mouth/Throat: Mouth: Mucous membranes are moist. Pharynx: Oropharynx is clear. Eyes: Extraocular Movements: Extraocular movements intact. Conjunctiva/sclera: Conjunctivae normal. Pupils: Pupils are equal, round, and reactive to light. Cardiovascular: Rate and Rhythm: Normal rate and regular rhythm. Pulses: Normal pulses. Heart sounds: Normal heart sounds. No murmur heard. Pulmonary: Effort: Pulmonary effort is normal. No respiratory distress. Breath sounds: Normal breath sounds. No stridor. No wheezing or rhonchi. Abdominal: Comments: The abdomen is soft and nondistended, there is tenderness in the epigastrium without guarding or rebound tenderness, bowel sounds are normal. Musculoskeletal: General: No swelling, tenderness, deformity or signs of injury. Normal range of motion. Cervical back: Normal range of motion and neck supple. No rigidity or tenderness. Lymphadenopathy: Cervical: No cervical adenopathy. Skin: General: Skin is warm and dry. Capillary Refill: Capillary refill takes less than 2 seconds. Coloration: Skin is not jaundiced or pale. Findings: No bruising or erythema. Neurological: General: No focal deficit present. Mental Status: He is alert and oriented to person, place, and time. Mental status is at baseline. Cranial Nerves: No cranial nerve deficit. Sensory: No sensory deficit. Psychiatric: Mood and Affect: Mood normal. DIAGNOSTIC RESULTS Procedures/EKG: EKG was reviewed by myself. Physician EKG interpretation can be found in [facility] RADIOLOGY (Per Emergency Physician): Interpretation per the Radiologist below, if available at the time of this note: No orders to display ED BEDSIDE ULTRASOUND: Performed by ED Physician - none LABS: Labs Reviewed COMPREHENSIVE METABOLIC PANEL - Abnormal Result Value SODIUM 139 POTASSIUM 4.0 CHLORIDE 103 CARBON DIOXIDE 19 (*) ANION GAP 17 (*) UREA NITROGEN 3 (*) CREATININE 0.73 GLUCOSE 114 (*) CALCIUM 9.6 AST (SGOT) 260 (*) ALT 191 (*) ALKALINE PHOSPHATASE 167 (*) ALBUMIN 4.5 BILIRUBIN, TOTAL 0.9 TOTAL PROTEIN 8.5 (*) eGFR >90.0 LIPASE - Abnormal LIPASE 125 (*) CBC (HEMOGRAM) - Normal Auto WBC 6.6 RBC 5.21 Hemoglobin 15.3 Hematocrit 45.4 MCV 87.1 MCH 29.4 MCHC 33.7 RDW 14.9 Platelets 286 MPV 9.7 All other labs were within normal range or not returned as of this dictation. EMERGENCY DEPARTMENT COURSE and DIFFERENTIAL DIAGNOSIS/MDM: Vitals: Vitals: 03/22/24 1317 03/22/24 1537 BP: (!) 178/119 (!) 154/103 Pulse: 107 102 Resp: 18 16 Temp: 36.3 C (97.4 F) TempSrc: Temporal SpO2: 97% 97% Diagnoses as of 03/22/24 1644 Pain of upper abdomen Transaminitis Alcohol-induced chronic pancreatitis (CMS/HCC) (HCC) Alcohol use disorder The patient presented with chief complaint of with chief complaint of abdominal pain, nausea vomiting. Has a history of acute and chronic pancreatitis related to alcohol use disorder he has had multiple admissions for this over the last 6 months he has had mid upper abdominal pain and vomiting since yesterday. Denies fevers or chills.. The differential diagnosis associated with this patient's presentation includes acute pancreatitis,chronic pancreatitis, chronic pain, alcohol use disorder. Our workup consisted of ordering/reviewing: CBC, CMP, lipase. Diagnostic tests considered but not performed: Considered CT abdomen pelvis however he has minimal tenderness and his lipase is 125, he has elevation of his AST ALT 260 and 191 his alk phos is 161 suggestive of chronic alcohol use disorder and these are actually decreased from a month ago To aid in management, I performed an independent interpretation of [facility]. I also reviewed external records from [facility]. I discussed their care with [facility]. Consideration for escalation of care with: Admission/observation considered admission but the patient has no interest in alcohol cessation he has chronic pain from using alcohol and he will continue to have that until he stops I had a very vivienne conversation with him until he is ready to get sober he is getting continue to have these issues there is no reason for hospitalization at this time. The patient will be Discharged. Patient is in agreement with this plan. Medications morphine injection 4 mg (4 mg IntraVENous Given 03/22/241535) sodium chloride 0.9 % bolus 1,000 mL (1,000 mL IntraVENous New Bag 03/22/241535) ondansetron (Zofran) injection 4 mg (4 mg IntraVENous Given 03/22/241535) REVAL: CRITICAL CARE TIME None CONSULTS: IP CONSULT TO ADDICTION TANK TRUCK MECHANIC PROCEDURES: Unless otherwise noted below, none Procedures Patients symptoms are consistent with sepsis, severe sepsis, or septic shock (If yes use .sepsiscoremeasure): no FINAL IMPRESSION 1. Pain of upper abdomen 2. Transaminitis 3. Alcohol-induced chronic pancreatitis (CMS/HCC) (HCC) 4. Alcohol use disorder DISPOSITION Discharge 03/22/2024 04:39:01 PM PATIENT REFERRED TO: [facility] ED [address] [place] [id number] If symptoms worsen DISCHARGE MEDICATIONS: New Prescriptions OXYCODONE (ROXICODONE) 5 MG IMMEDIATE RELEASE TABLET Take 1 tablet (5 mg) by mouth every 6 hours asneeded for severe pain (7-10) for up to 3 days. (Comment: Please note this report has been produced using speech recognition software and may contain errors related to that system including errors in grammar, punctuation, and spelling, as well as words and phrases that may be inappropriate. If there are any questions or concerns please feel freeto contact the dictating provider for clarification.) JOSÉ ANTONIO Mercedes CNP (electronically signed) Emergency Medicine Provider JOSÉ ANTONIO Mercedes CNP 03/22/24 1609 documented in this [facility]02-11-2025 Emergency department Note* Adrian Zhang RN - 03/22/2024 3:28 PM EST The following are the next steps in your Substance use Treatment Plan: Below are additional resources that you may find beneficial in your treatment: 12-Step: Alcohol Anonymous: [facility] Sinan Anon: 718.697.2462: 12-step program for families & friends of people with addiction. CRISIS: Homeless Hotline: 249.876.5193 [facility]OMELESS SHELTERS [facility] 01/09 line-01/09 OFFICE: [phone] [facility]: [address] [facility], [place] [address] [phone] (24 Hours) Domestic Violence help line anytime: 850.911.9268 Crisis Hotline: 01/09- 760.373.4337 ADM Addiction Helpline: 400.688.4596 (available 8:30 AM to 4:00 PM ) 03-12-1 2--1 helps people across [facility] find local resources when they don't know where to turn forhelp. We are available 24 hours a day, 7 days a week. For help, simply dial to speak to one of our trained professionals. DETOX TREATMENT: [facility] [place], [place] [phone] /[facility] Crisis Center: anytime @ [phone] for alcohol & drug addiction help. [facility], [place], [place] [phone] [facility] [place]: [phone] [place], [place]: [phone], [facility] [place]: [phone] [place], [place] [phone] Adolescent [facility] [place], [place] [phone] [facility] [place], [place]: [phone] [facility], [place], [place] [phone] ext. [phone] [facility], [place], [facility] & detox & Sober living [phone] [place], [place] (pt. must be medically cleared prior to admission in ED) [place] [phone] OUTPATIENT TREATMENT: [facility] @ [place] [phone]. 1st Step MAT Program @ [facility] ED: [phone] 1st Step MAT Program @ [facility] ED: [phone] Intensive Outpatient Programs- [facility] Marlo Bushraakash [place], [place] [phone] [place], [place] [phone] [facility] [place], [place] [phone] [facility] Addiction Treatment: [place], [place] [phone] or [phone]. [facility]: [phone] [facility], [place]: [phone], [place]: [phone] [facility] [place]: [phone] [facility], [place], [place]: [phone] [facility], [place]: [phone], [place]: [phone] [facility] [place] [place]. [place]: [phone] [facility], [place], [facility] & Sober living [phone] [facility], [place], [place] [phone] [facility] Behavioral Health Services: [phone] Behavioral Health Services: [facility]: [phone]-[phone], [place]/Kuqwms-[phone], [place]- [phone] [facility] Behavioral [facility], [place]: [phone], [place]: [phone] [facility] Behavioral Health, [place], [place] [phone] [facility], [place], [place] [phone] [facility], [place] [phone], in, services, dual dx. Tx. with detox. RESIDENTIAL TREATMENT FACILITIES: [facility] House: inpt. Or outpt. - [phone] [place], [place], [place] [phone] [facility], [place], [place] [phone] [facility] ([facility]) @ [facility] [phone] [facility] Residential tx., [place], [place] [phone] (admission coordinated by ADM Toby Vickers ext [phone]) [facility] [place], [place]: [phone]; Men's services inpt. & women services -Outpt. [facility], [place], [place] [phone] [facility], [place], [place] [phone] [facility], [place], [place] [phone] [facility], [place], [place] [phone] [facility], [place], [place] [phone] [facility] - [place], [place] [phone] [facility], [place], [place] [phone] [place], [place] [phone] [facility], [facility] & detox & Sober living [phone] OTHER SERVICES: [employer]: [phone] [facility]: [phone] ext. [phone] Medicaid Health Coverage: [employer] JFS: [phone] [id number] Physician Emergency department Note* JOSÉ ANTONIO Mercedes CNP - 03/22/2024 1:14 PM EST EMERGENCY DEPARTMENT ENCOUNTER Pt Name: Roro Valdivia Birthdate 1985 Date of evaluation: 03/22/2024 ED Provider: JOSÉ ANTONIO Mercedes CNP I have evaluated this patient on my own, per my scope of practice with an attending physician available for consultation. CHIEF COMPLAINT Chief Complaint Patient presents with Abdominal Pain Patient presents with what he says is pancreatitis. Patient endorses mid upper abdominal pain, and vomiting. HISTORY OF PRESENT ILLNESS (Location/Symptom, Timing/Onset, Context/Setting, Quality, Duration, Modifying Factors, Severity) Note limiting factors. I wore appropriate PPE for the entirety of this encounter. HPI Roro Valdivia is a 38 y.o. who presents to the emergency department with chief complaint of abdominal pain, nausea vomiting. Has a history of acute and chronic pancreatitis related to alcohol use disorder he has had multiple admissions for this over the last 6 months he has had mid upper abdominal pain and vomiting since yesterday. Denies fevers or chills. Nursing Notes were reviewed. Limitations to history: None Outside historians: None REVIEW OF SYSTEMS Review of Systems Constitutional: Negative for activity change, appetite change, chills and fever. HENT: Negative for congestion, nosebleeds, postnasal drip, sore throat and trouble swallowing. Eyes: Negative for pain and visual disturbance. Respiratory: Negative for cough and shortness of breath. Cardiovascular: Negative for chest pain. Gastrointestinal: Positive for abdominal pain, nausea and vomiting. Genitourinary: Negative for dysuria, flank pain, hematuria, penile discharge, scrotal swelling and testicular pain. Musculoskeletal: Negative for arthralgias, back pain and myalgias. Skin: Negative for rash and wound. Neurological: Negative for dizziness, syncope, weakness and light-headedness. Psychiatric/Behavioral: Negative for agitation and confusion. All other systems reviewed and are negative. Pertinent positives and negatives as per HPI. PAST MEDICAL HISTORY Past Medical History: Diagnosis Date Addiction to drug ([facility]) ([facility]) Alcohol abuse Alcohol withdrawal syndrome without complication ([facility]) 06/27/2022 Alcohol withdrawal with inpatient treatment, uncomplicated ([facility]) 03/15/2022 GERD (gastroesophageal reflux disease) History of pancreatitis 01/07/2023 Hypertension Pancreatitis Seizures ([facility]) SVT (supraventricular tachycardia) ([facility]) Tourette syndrome SURGICAL HISTORY Past Surgical History: Procedure Laterality Date APPENDECTOMY CURRENT MEDICATIONS Previous Medications MELATONIN 3 MG CAPSULE Take 3 mg by mouth Nightly. METOPROLOL SUCCINATE XL (TOPROL-XL) 50 MG 24 HR TABLET Take 1 tablet (50 mg) by mouth daily. Do notcrush or chew. PANTOPRAZOLE (PROTONIX) 40 MG EC TABLET Take 1 tablet (40 mg) by mouth 2 times daily (before meals). Do not crush, chew, or split. PROPRANOLOL (INDERAL) 20 MG TABLET Take 1 tablet (20 mg) by mouth 3 times daily as needed (anxiety). RISPERIDONE (RISPERDAL) 0.5 MG TABLET Take 1 tablet (0.5 mg) by mouth Nightly. VENLAFAXINE XR (EFFEXOR XR) 75 MG 24 HR CAPSULE Take 1 capsule (75 mg) by mouth daily (with breakfast). Do not crush or chew. ALLERGIES Patient has no known allergies. FAMILY HISTORY Family History Problem Relation Name Age of Onset No Known Problems Mother No Known Problems Father SOCIAL HISTORY Social History Socioeconomic History Marital status: Single Tobacco Use Smoking status: Every Day Current packs/day: 1.00 Types: Cigarettes Smokeless tobacco: Never Vaping Use Vaping status: Never Used Substance and Sexual Activity Alcohol use: Yes Comment: 2/5 vodka daily Drug use: Not Currently Types: Cocaine, Methamphetamines, Oxycodone, Fentanyl, Heroin, Benzodiazepines Sexual activity: Not Currently Social Drivers of Health Financial Resource Strain: Low Risk (02/05/2024) Overall Financial Resource Strain (CARDIA) Difficulty of Paying Living Expenses: Not hard at all Recent Concern: Financial Resource Strain - Medium Risk (12/14/2023) Overall Financial Resource Strain (CARDIA) Difficulty of Paying Living Expenses: Somewhat hard Food Insecurity: No Food Insecurity (02/05/2024) Hunger Vital Sign Worried About Running Out of Food in the Last Year: Never true Ran Out of Food in the Last Year: Never true Transportation Needs: No Transportation Needs (02/05/2024) PRAPARE - Transportation Lack of Transportation (Medical): No Lack of Transportation (Non-Medical): No Recent Concern: Transportation Needs - Unmet Transportation Needs (12/16/2023) PRAPARE - Transportation Lack of Transportation (Medical): Yes Lack of Transportation (Non-Medical): Yes Physical Activity: Inactive (02/05/2024) Exercise Vital Sign Days of Exercise per Week: 0 days Minutes of Exercise per Session: 0 min Stress: Stress Concern Present (02/05/2024) [employer] - Occupational Stress Questionnaire Feeling of Stress : To some extent Social Connections: Socially Isolated (02/05/2024) Social Connection and Isolation Panel [NHANES] Frequency of Communication with Friends and Family: More than three times a week Frequency of Social Gatherings with Friends and Family: More than three times a week Attends [employer] Services: Never Active Member of Clubs or Organizations: No Attends Club or Organization Meetings: Never Marital Status: Never Intimate Partner Violence: Not At Risk (02/05/2024) Humiliation, Afraid, Rape, and Kick questionnaire Fear of Current or Ex-Partner: No Emotionally Abused: No Physically Abused: No Sexually Abused: No Housing Stability: High Risk (02/05/2024) Housing Stability Vital Sign Unable to Pay for Housing in the Last Year: Patient unable to answer Number of Times Moved in the Last Year: 0 Homeless in the Last Year: Yes SCREENINGS PHYSICAL EXAM ED Triage Vitals [03/22/24 1317] Temp Heart Rate Resp BP 36.3 C (97.4 F) 107 18 (!) 178/119 SpO2 Temp Source Heart Rate Source Patient Position 97 % Temporal Monitor -- BP Location FiO2 (%) -- -- Physical Exam Vitals and nursing note reviewed. Constitutional: General: He is not in acute distress. Appearance: Normal appearance. He is normal weight. He is not ill-appearing or toxic-appearing. HENT: Head: Normocephalic and atraumatic. Right Ear: External ear normal. Left Ear: External ear normal. Mouth/Throat: Mouth: Mucous membranes are moist. Pharynx: Oropharynx is clear. Eyes: Extraocular Movements: Extraocular movements intact. Conjunctiva/sclera: Conjunctivae normal. Pupils: Pupils are equal, round, and reactive to light. Cardiovascular: Rate and Rhythm: Normal rate and regular rhythm. Pulses: Normal pulses. Heart sounds: Normal heart sounds. No murmur heard. Pulmonary: Effort: Pulmonary effort is normal. No respiratory distress. Breath sounds: Normal breath sounds. No stridor. No wheezing or rhonchi. Abdominal: Comments: The abdomen is soft and nondistended, there is tenderness in the epigastrium without guarding or rebound tenderness, bowel sounds are normal. Musculoskeletal: General: No swelling, tenderness, deformity or signs of injury. Normal range of motion. Cervical back: Normal range of motion and neck supple. No rigidity or tenderness. Lymphadenopathy: Cervical: No cervical adenopathy. Skin: General: Skin is warm and dry. Capillary Refill: Capillary refill takes less than 2 seconds. Coloration: Skin is not jaundiced or pale. Findings: No bruising or erythema. Neurological: General: No focal deficit present. Mental Status: He is alert and oriented to person, place, and time. Mental status is at baseline. Cranial Nerves: No cranial nerve deficit. Sensory: No sensory deficit. Psychiatric: Mood and Affect: Mood normal. DIAGNOSTIC RESULTS Procedures/EKG: EKG was reviewed by myself. Physician EKG interpretation can be found in [facility] RADIOLOGY (Per Emergency Physician): Interpretation per the Radiologist below, if available at the time of this note: No orders to display ED BEDSIDE ULTRASOUND: Performed by ED Physician - none LABS: Labs Reviewed COMPREHENSIVE METABOLIC PANEL - Abnormal Result Value SODIUM 139 POTASSIUM 4.0 CHLORIDE 103 CARBON DIOXIDE 19 (*) ANION GAP 17 (*) UREA NITROGEN 3 (*) CREATININE 0.73 GLUCOSE 114 (*) CALCIUM 9.6 AST (SGOT) 260 (*) ALT 191 (*) ALKALINE PHOSPHATASE 167 (*) ALBUMIN 4.5 BILIRUBIN, TOTAL 0.9 TOTAL PROTEIN 8.5 (*) eGFR >90.0 LIPASE - Abnormal LIPASE 125 (*) CBC (HEMOGRAM) - Normal Auto WBC 6.6 RBC 5.21 Hemoglobin 15.3 Hematocrit 45.4 MCV 87.1 MCH 29.4 MCHC 33.7 RDW 14.9 Platelets 286 MPV 9.7 All other labs were within normal range or not returned as of this dictation. EMERGENCY DEPARTMENT COURSE and DIFFERENTIAL DIAGNOSIS/MDM: Vitals: Vitals: 03/22/24 1317 03/22/24 1537 BP: (!) 178/119 (!) 154/103 Pulse: 107 102 Resp: 18 16 Temp: 36.3 C (97.4 F) TempSrc: Temporal SpO2: 97% 97% Diagnoses as of 03/22/24 1644 Pain of upper abdomen Transaminitis Alcohol-induced chronic pancreatitis (CMS/HCC) (HCC) Alcohol use disorder The patient presented with chief complaint of with chief complaint of abdominal pain, nausea vomiting. Has a history of acute and chronic pancreatitis related to alcohol use disorder he has had multiple admissions for this over the last 6 months he has had mid upper abdominal pain and vomiting since yesterday. Denies fevers or chills.. The differential diagnosis associated with this patient's presentation includes acute pancreatitis,chronic pancreatitis, chronic pain, alcohol use disorder. Our workup consisted of ordering/reviewing: CBC, CMP, lipase. Diagnostic tests considered but not performed: Considered CT abdomen pelvis however he has minimal tenderness and his lipase is 125, he has elevation of his AST ALT 260 and 191 his alk phos is 161 suggestive of chronic alcohol use disorder and these are actually decreased from a month ago To aid in management, I performed an independent interpretation of none. I also reviewed external records from [facility]. I discussed their care with none. Consideration for escalation of care with: Admission/observation considered admission but the patient has no interest in alcohol cessation he has chronic pain from using alcohol and he will continue to have that until he stops I had a very vivienne conversation with him until he is ready to get sober he is getting continue to have these issues there is no reason for hospitalization at this time. The patient will be Discharged. Patient is in agreement with this plan. Medications morphine injection 4 mg (4 mg IntraVENous Given 03/22/24 153) sodium chloride 0.9 % bolus 1,000 mL (1,000 mL IntraVENous New Bag 03/22/241535) ondansetron (Zofran) injection 4 mg (4 mg IntraVENous Given 03/22/24 153) REVAL: CRITICAL CARE TIME None CONSULTS: IP CONSULT TO ADDICTION TANK TRUCK MECHANIC PROCEDURES: Unless otherwise noted below, none Procedures Patients symptoms are consistent with sepsis, severe sepsis, or septic shock (If yes use .sepsiscoremeasure): no FINAL IMPRESSION 1. Pain of upper abdomen 2. Transaminitis 3. Alcohol-induced chronic pancreatitis (CMS/HCC) ([facility]) 4. Alcohol use disorder DISPOSITION Discharge 03/22/2024 04:39:01 PM PATIENT REFERRED TO: [facility] [address] [facility] [address] If symptoms worsen DISCHARGE MEDICATIONS: New Prescriptions OXYCODONE (ROXICODONE) 5 MG IMMEDIATE RELEASE TABLET Take 1 tablet (5 mg) by mouth every 6 hours asneeded for severe pain (7-10) for up to 3 days. (Comment: Please note this report has been produced using speech recognition software and may contain errors related to that system including errors in grammar, punctuation, and spelling, as well as words and phrases that may be inappropriate. If there are any questions or concerns please feel freeto contact the dictating provider for clarification.) JOSÉ ANTONIO Mercedes CNP (electronically signed) Emergency Medicine Provider JOSÉ ANTONIO Mercedes CNP 03/22/24 9139 [id number] Telephone encounter Note* Telephone Encounter - Roma Mckenzie RN - 02/20/2024 4:11 PM EST Called patient for follow up, voicemail received, message left. [id number] Miscellaneous Notes* Telephone Encounter - Roma Mckenzie RN - 02/20/2024 4:11 PM EST Called patient for follow up, voicemail received, message left. documented in this encounterSDayton Children's [phone] Nurse Note* Fay Lara RN - 02/08/2024 1:54 PM EST Claims ticket found in chart. Patient left without getting item. Message left on the cell number ofthe patient listed in the chart that the ticket is in security and he can retrieve his item from them. Number to the unit desk provide d for any further questions. [id number] Nurse Note* Fay Lara RN - 02/08/2024 1:54 PM EST Claims ticket found in chart. Patient left without getting item. Message left on the cell number ofthe patient listed in the chart that the ticket is in security and he can retrieve his item from them. Number to the unit desk provide d for any further questions. * Fay Lara RN - 02/08/2024 1:39 PM EST The patient is wanting to take a lyft home today if there is money on his card. If not a bus pass was given as a alternative for transportation. He reports that he will be using public transportationfor a while until he can get his vehicle repaired. Home going instructions reviewed with the patient. He voiced clear understanding of the information. He denies thoughts of wanting to harm himself or others. He denies any form of hallucinations. Relapse prevention discussed. He voiced understanding of the risk related to resuming use. He voiced the plan is to go into [facility] once he has the items needed for admission as soon as tomorrow. He denies needing meeting information saying he has all that stuff. He did not want information on assistance as he has copies of these from times past and he does not need more. He was given copies of the paper work for discharge. Time allowed for questions. 1349 Clothes for discharge returned to the patient after verifying his name and . He is dressingfor discharge. 1354 He was walked down for discharge. He will be given the remainder of his items after he leaves the unit. Our crusher and blender operator has his things in hand and is walking him down to discharge. His gait is steady and he is without complaint. * Fay Lara RN - 02/08/2024 8:13 AM EST On first assessment Mr. Valdivia was resting in bed. He allowed this author to order fruit and Ensure plus for breakfast. He was not ready for any other food at this time. He was cooperative with morning assessment. He took his morning medications without issue. * Velma Forman RN - 02/07/2024 8:18 PM EST Pt alert and oriented, med compliant, pt denies SI/HI/AVH, NV&D. Pt complains of some anxiety, medicated with vistaril and trazodone for sleep. 2117- vistaril effective for anxiety, pt asleep at this time. Pt encouraged to update staff with any change in condition. Will monitor pt for safety. * Velma Forman RN - 02/06/2024 8:08 PM EST Pt alert and oriented, med compliant, pt denies SI/HI/AVH, NV&D. Pt states he is still having alot of thoughts about needing to drink to deal with his panic attacks. Pt complaining of what he states is really bad GERD, Dr. Alexandre updated that pt states he usually takes protonix, new orders for protonix received. Pt encouraged to update staff with any change in condition. Will monitor pt for safety. * Feli May RN - 02/06/2024 12:41 PM EST Refused breakfast. Discussed lunch, states he doesn't eat, only ensures. Called dietary, verified that he has not ordered food. Did order a ensure, fruit cup, chips and pretzels. Will get nutrition involved. States vomits often is why he does not eat. States that he has had a 40 lb weight loss and eats one bite of food weekly. * Velma Forman RN - 02/05/2024 9:10 PM EST Pt asleep at this time. * Velma Forman RN - 02/05/2024 9:10 PM EST Pt medicated with vistaril for anxiety. 2210- Vistaril effective for anxiety, pt asleep at this time. * Velma Forman RN - 02/05/2024 8:10 PM EST Pt alert and oriented, med compliant, pt denies SI/HI/AVH, NV&D. Pt states he feels he has beenhaving panic attacks on and off for the past few hours. Pts SHANE 14 Dr. Ramsey updated and new orders received. Pt encouraged to update staff with any change in condition. Will monitor pt for safety. * Seema Loredo RN - 02/05/2024 1:30 PM EST Patient arrived to the unit at [address] the [facility] ED. Patient admitted for ETOH detox, alcohol level 422 when he first arrived, then 193 prior to admit here. Patient tox screen positive forcocaine. Patient here in August, stated he never really stopped drinking. Admitted to doing cocainewhen drinking, a small amount. 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 Patient independent with ADLs and ambulation. Denies SI/HI/AVH thus far. Skin check complete by 2 RN, intact with tattoos. Personal belongings secured by protective services. Patient reports having no appetite and poor sleep; hygiene also poor. Patient compliant with admission process, paperwork signed. Patient exhibits poor eye contact, dismissive. Patient remembers unit protocol and how it is designed, no tour necessary. Encouraged patient to let staff know of any concerns or changes. Patient unhoused, states he is going to [facility] upon discharge, release signed. Will continue to monitor for safety. documented in this [facility]12-30-2024 Nurse Note* Fay Lara RN - 02/08/2024 1:39 PM EST The patient is wanting to take a lyft home today if there is money on his card. If not a bus pass was given as a alternative for transportation. He reports that he will be using public transportationfor a while until he can get his vehicle repaired. Home going instructions reviewed with the patient. He voiced clear understanding of the information. He denies thoughts of wanting to harm himself or others. He denies any form of hallucinations. Relapse prevention discussed. He voiced understanding of the risk related to resuming use. He voiced the plan is to go into [facility] once he has the items needed for admission as soon as tomorrow. He denies needing meeting information saying he has all that stuff. He did not want information on assistance as he has copies of these from times past and he does not need more. He was given copies of the paper work for discharge. Time allowed for questions. 1349 Clothes for discharge returned to the patient after verifying his name and . He is dressingfor discharge. 1354 He was walked down for discharge. He will be given the remainder of his items after he leaves the unit. Our crusher and blender operator has his things in hand and is walking him down to discharge. His gait is steady and he is without complaint. [facility] [id number] Group counseling note* Group Note - Divine Lombardo - 02/08/2024 12:25 PM EST Department: [facility] Group Topic: Recreation Therapy Group Date: 02/08/2024 Start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 was hopefulfor [facility] sobri[facility] with [facility], where Roro had previously attended and had sustained sobrietythrough. Vitals height is 1.854 m (6' 1) and weight is 107 kg (235 lb). His temporal temperature is 36.4 C (97.6 F). His blood pressure is 111/72 and his pulse is 65. His respiration is 16 and oxygen saturation is 96%. Physical Exam Constitutional: Appearance: Normal appearance. HENT: Mouth/Throat: Mouth: Mucous membranes are moist. Eyes: Extraocular Movements: Extraocular movements intact. Cardiovascular: Rate and Rhythm: Normal rate. Pulmonary: Effort: Pulmonary effort is normal. Abdominal: Palpations: Abdomen is soft. Musculoskeletal: General: Normal range of motion. Cervical back: Normal range of motion. Skin: General: Skin is warm. Neurological: General: No focal deficit present. Mental Status: He is alert and oriented to person, place, and time. Labs Results for orders placed or performed during the hospital encounter of 02/04/24 SARS-CoV-2 Antigen Collection Time: 02/04/24 1:03 PM Specimen: Nasal; Swab Result Value Ref Range SARS-CoV-2 Antigen Negative Negative CBC auto differential Collection Time: 02/04/24 1:06 PM Result Value Ref Range Auto WBC 8.6 3.6 - 10.7 10*3/uL RBC 4.81 4.40 - 5.90 10*6/uL Hemoglobin 14.3 13.0 - 18.0 g/dL Hematocrit 43.7 40.0 - 52.0 % MCV 90.9 77.0 - 99.0 fL MCH 29.7 26.0 - 34.0 pg MCHC 32.7 30.5 - 36.0 % RDW 13.7 11.5 - 15.0 % Platelets 377 140 - 440 10*3/uL MPV 9.8 9.0 - 12.7 fL nRBC 0.0 0.0 - 2.0 /100 WBCs Neutrophils Relative 37.0 (L) 38.0 - 82.0 % Lymphocytes Relative 54.6 (H) 15.0 - 45.0 % Monocytes Relative 6.4 5.0 - 13.0 % Eosinophils Relative 0.8 0.0 - 6.0 % Basophils Relative 1.0 0.0 - 2.0 % Immature Grans % 0.2 0.0 - 2.0 % Neutrophils Absolute 3.2 1.8 - 7.5 10*3/uL Lymphocytes Absolute 4.7 (H) 1.0 - 4.3 10*3/uL Monocytes Absolute 0.6 0.0 - 0.9 10*3/uL Eosinophils Absolute 0.1 0.0 - 0.5 10*3/uL Basophils Absolute 0.1 0.0 - 0.2 10*3/uL Immature Grans Absolute 0.0 <0.1 10*3/uL Comprehensive metabolic panel Collection Time: 02/04/24 1:06 PM Result Value Ref Range SODIUM 141 136 - 145 mmol/L POTASSIUM 2.9 (L) 3.5 - 5.1 mmol/L CHLORIDE 106 98 - 107 mmol/L CARBON DIOXIDE 20 (L) 22 - 29 mmol/L ANION GAP 15 (H) 3 - 13 mmol/L UREA NITROGEN 4 (L) 8 - 21 mg/dL CREATININE 0.74 0.72 - 1.25 mg/dL GLUCOSE 211 (H) 74 - 100 mg/dL CALCIUM 8.9 8.4 - 10.2 mg/dL AST (SGOT) 463 (H) <34 U/L ALT 189 (H) <40 U/L ALKALINE PHOSPHATASE 192 (H) 40 - 150 U/L ALBUMIN 4.1 3.5 - 5.0 g/dL BILIRUBIN, TOTAL 0.5 <1.2 mg/dL TOTAL PROTEIN 7.9 6.4 - 8.3 g/dL eGFR >90.0 >60.0 mL/min/1.73m*2 Ethanol Collection Time: 02/04/24 1:06 PM Result Value Ref Range ETHANOL IN SER/PLAS 422 (HH) <10 mg/dL Drug screen panel, emergency Collection Time: 02/04/24 3:03 PM Result Value Ref Range AMPHETAMINE SCREEN Negative BARBITURATES SCREEN Negative BENZODIAZEPINE SCREEN Negative COCAINE METAB. SCREEN Positive METHADONE SCREEN Negative OPIATES SCREEN Negative OXYCODONE SCREEN Negative PHENCYCLIDINE SCREEN Negative FENTANYL SCREEN, UR QUAL Negative Blood gas, venous ([facility] and [facility]) Collection Time: 02/04/24 3:07 PM Result Value Ref Range pH, Venous 7.185 (L) 7.330 - 7.430 pCO2, Venous 42.7 40.0 - 55.0 mm Hg pO2, Venous 131.7 mm Hg HCO3, Venous 15.8 (L) 23.0 - 27.0 mmol/L O2 Sat, Venous 97.4 % Base Excess, Venous -12.0 (L) -3.0 - 3.0 mmol/L Hgb, blood gas 13.5 Screen only g/dl TCO2, Venous 17.1 (L) 24.0 - 28.0 mmol/L Source Of Oxygen Room Air Basic metabolic panel Collection Time: 02/04/24 9:08 PM Result Value Ref Range SODIUM 144 136 - 145 mmol/L POTASSIUM 4.1 3.5 - 5.1 mmol/L CHLORIDE 109 (H) 98 - 107 mmol/L CARBON DIOXIDE 24 22 - 29 mmol/L UREA NITROGEN 4 (L) 8 - 21 mg/dL CREATININE 0.67 (L) 0.72 - 1.25 mg/dL GLUCOSE 115 (H) 74 - 100 mg/dL CALCIUM 8.3 (L) 8.4 - 10.2 mg/dL ANION GAP 11 3 - 13 mmol/L eGFR >90.0 >60.0 mL/min/1.73m*2 Blood gas, venous ([facility] and [facility]) Collection Time: 02/04/24 9:08 PM Result Value Ref Range pH, Venous 7.380 7.330 - 7.430 pCO2, Venous 39.7 (L) 40.0 - 55.0 mm Hg pO2, Venous 50.3 mm Hg HCO3, Venous 23.0 23.0 - 27.0 mmol/L O2 Sat, Venous 76.9 % Base Excess, Venous -1.9 -3.0 - 3.0 mmol/L Hgb, blood gas 15.0 Screen only g/dl TCO2, Venous 24.2 24.0 - 28.0 mmol/L Source Of Oxygen Room Air Ethanol Collection Time: 02/04/24 9:08 PM Result Value Ref Range ETHANOL IN SER/PLAS 193 (H) <10 mg/dL CBC auto differential Collection Time: 02/05/24 4:26 AM Result Value Ref Range Auto WBC 5.0 3.6 - 10.7 10*3/uL RBC 4.34 (L) 4.40 - 5.90 10*6/uL Hemoglobin 13.1 13.0 - 18.0 g/dL Hematocrit 39.1 (L) 40.0 - 52.0 % MCV 90.1 77.0 - 99.0 fL MCH 30.2 26.0 - 34.0 pg MCHC 33.5 30.5 - 36.0 % RDW 13.7 11.5 - 15.0 % Platelets 282 140 - 440 10*3/uL MPV 9.9 9.0 - 12.7 fL nRBC 0.0 0.0 - 2.0 /100 WBCs Neutrophils Relative 55.3 38.0 - 82.0 % Lymphocytes Relative 35.1 15.0 - 45.0 % Monocytes Relative 7.4 5.0 - 13.0 % Eosinophils Relative 1.0 0.0 - 6.0 % Basophils Relative 1.0 0.0 - 2.0 % Immature Grans % 0.2 0.0 - 2.0 % Neutrophils Absolute 2.8 1.8 - 7.5 10*3/uL Lymphocytes Absolute 1.8 1.0 - 4.3 10*3/uL Monocytes Absolute 0.4 0.0 - 0.9 10*3/uL Eosinophils Absolute 0.1 0.0 - 0.5 10*3/uL Basophils Absolute 0.1 0.0 - 0.2 10*3/uL Immature Grans Absolute 0.0 <0.1 10*3/uL Basic metabolic panel Collection Time: 02/05/24 4:26 AM Result Value Ref Range SODIUM 140 136 - 145 mmol/L POTASSIUM 4.3 3.5 - 5.1 mmol/L CHLORIDE 107 98 - 107 mmol/L CARBON DIOXIDE 23 22 - 29 mmol/L UREA NITROGEN 4 (L) 8 - 21 mg/dL CREATININE 0.64 (L) 0.72 - 1.25 mg/dL GLUCOSE 100 74 - 100 mg/dL CALCIUM 8.4 8.4 - 10.2 mg/dL ANION GAP 10 3 - 13 mmol/L eGFR >90.0 >60.0 mL/min/1.73m*2 Imaging No results found. Scheduled Inpatient Meds folic acid, 1 mg, Oral, Daily influenza, 0.5 mL, IntraMUSCular, Once pantoprazole, 40 mg, Oral, qAM AC PHENobarbital, 16.2 mg, Oral, Q4H thiamine, 100 mg, Oral, Daily venlafaxine XR, 75 mg, Oral, Daily with breakfast PRN Inpatient Meds PRN medications: acetaminophen, hydrOXYzine pamoate, ondansetron ODT OR ondansetron, polyethylene glycol (PEG) 3350, traZODone DISCHARGE INSTRUCTIONS Activity activity as tolerated. Disposition Home. Medication List ASK your doctor about these medications cloNIDine 0.1 MG tablet Commonly known as: Catapres metoprolol succinate XL 50 MG 24 hr tablet Commonly known as: Toprol-XL Take 1 tablet (50 mg) by mouth daily. Do not crush or chew. pantoprazole 40 MG EC tablet Commonly known as: ProtoNix Take 1 tablet (40 mg) by mouth 2 times daily (before meals). Do not crush, chew, or split. risperiDONE 0.5 MG tablet Commonly known as: RisperDAL Take 1 tablet (0.5 mg) by mouth Nightly. venlafaxine XR 75 MG 24 hr capsule Commonly known as: Effexor XR Take 1 capsule (75 mg) by mouth daily (with breakfast). Do not crush or chew. Do not start before December 18, 2023. Follow Up [facility] [address] [place] [address] Go to For intake for PHP/sober living program. No future appointments. The patient was also instructed to: Attend AA/NA meetings or a similar 12-step program. Abstain from any mind or mood altering substances that are not prescribed. Follow up with their primary care doctor and/or psychiatrist as soon as possible. This patient was staffed with Dr. Orta. Nikky Escobar MD electronically signed this at 2:05 PM Cosigned by Carlitos Orta MD at 02/08/2024 3:00 PM EST Associated attestation - Carlitos Orta MD - 02/08/2024 3:00 PM EST I saw the patient on the day of discharge and agree with the discharge plans and disposition as recorded by the fellow. I personally spent over 30 minutes in the discharge planning process. Carlitos Orta MD documented in this [facility]12-30-2024 Note* Care Coordination - HUSSAIN Toribio - 02/08/2024 10:34 AM EST HUSSAIN saw patient to discuss aftercare plans and treatment post discharge. Patient was reminded about appointments. Patient has intake later today with [facility] for PHP/sober living program. Patient denied current SI/HI/AVH. Patient reported that their stepmother would be picking them up from the hospital to take them home to gather his belongings and then drop them off at PHP/sober living program. Patient denied needing anything further from [facility] at the time. HUSSAIN informed patient's nurse about conversation. Bl[facility] [id number] Note* Care Coordination - HUSSAIN Toribio - 02/08/2024 10:34 AM EST [facility] saw patient to discuss aftercare plans and treatment post discharge. Patient was reminded about appointments. Patient has intake later today with [facility] for PHP/sober living program. Patient denied current SI/HI/AVH. Patient reported that their stepmother would be picking them up from the hospital to take them home to gather his belongings and then drop them off at PHP/sober living program. Patient denied needing anything further from [facility] at the time. HUSSAIN informed patient's nurse about conversation. [facility] [id number] Nurse Note* Fay Lara RN - 02/08/2024 8:13 AM EST On first assessment Mr. Valdivia was resting in bed. He allowed this author to order fruit and Ensure plus for breakfast. He was not ready for any other food at this time. He was cooperative with morning assessment. He took his morning medications without issue. Bl[facility] [id number] Nurse Note* Velma Forman RN - 02/07/2024 8:18 PM EST Pt alert and oriented, med compliant, pt denies SI/HI/AVH, NV&D. Pt complains of some anxiety, medicated with vistaril and trazodone for sleep. 2117- vistaril effective for anxiety, pt asleep at this time. Pt encouraged to update staff with any change in condition. Will monitor pt for safety. [facility]12-29-2024 Plan of care note* Care Plan - Feli May RN - 02/07/2024 6:18 PM EST Problem: Sensory Perceptual Alteration as Evidenced by Goal: Participates in unit activities Outcome: Not Progressing Continues to stay in room except to get soda from day room. Does not attend meetings or social withpeers. Gait is steady. Eating most of meals ordered, but only getting chips or fruit in addition toensure. [facility]12-29-2024 History of Present illness Narrative* Reyes Pulliam MD - 02/07/2024 4:02 PM EST Hospitalist Progress Note 02/07/2024 Assessment/Plan: Data: (CAT1) Reviewed 2 notes from different specialty or health system (each=1). (CAT1) Reviewed 2 labs/studies ordered by another provider not previously counted (each=1, panels count as 1). (LOW: 2x CAT1 or independent historian MOD: 3x CAT1 or 1x CAT3 EXTENSIVE: 3x CAT1 and 1x CAT3) # Alcohol use disorder with acute withdrawal, history of severe withdrawals # Cocaine use disorder, severe # Opiate use disorder # Benzodiazepine use # Anxiety/depression/Tourette's: Effexor -Appreciate addiction medicine for detox -Continue vitamin supplementation -Strongly recommend cessation -Monitor vitals and electrolytes -Possible admission to [facility] -Dietary consult, nutritional supplement - PT/OT/CM/SW - delirium precautions: increase activity - DVT prophylaxis: encourage ambulation Discharge Disposition: Anticipate DC pending clinical improvement, completion of detox Total time spent (which include face to face and non face to face encounters) : 36 minutes D/W RN Complexity: Acute illness with systemic symptoms (MOD). Multiple stable chronic illnesses (MOD). Risk: Admission to hospital-level care was considered or occurred (HIGH). Advance Directive: Full Code Toxic drug monitoring/narrow therapeutic index drug monitoring : # Drug name : # Route administered: # Method of monitoring: Subjective: Admit Date: 02/04/2024 PCP: Tam Hughes DO Room#: E4-796/[id number] A Brief Hospital course: Patient is a 38-year-old male with history of significant alcohol use, benzodiazepine use, months and fentanyl use, cocaine use, fentanyl use who presented to ED requesting detox. He has had multipleadmissions in the past requiring detox, never follow through with treatment recommendations and rela pses soon after discharge. He drinks multiple bottles of hard liquor daily, started drinking at theage of 16, last drink was prior to presentation 02/03, and also admitted to using methamphetamines at the same time. In the ED, he was tachycardic initially, which improved with fluids. Also found ezra hypokalemic, which resolved with replacement. He was initially admitted to medical floor, but with improvement of vital and labs, transfer to detox floor. Interval History: Patient in room States withdrawal symptoms are controlled overall Still with poor p.o. intake Adult diet Regular 24HR INTAKE/OUTPUT: Intake/Output Summary (Last 24 hours) at 02/07/2024 1603 Last data filed at 02/07/2024 0614 Gross per 24 hour Intake 300 ml Output -- Net 300 ml Past Medical History: Past Medical History: Diagnosis Date Addiction to drug ([facility]/HCC) ([facility]) Alcohol abuse Alcohol withdrawal syndrome without complication ([facility]) 06/27/2022 Alcohol withdrawal with inpatient treatment, uncomplicated ([facility]) 03/15/2022 GERD (gastroesophageal reflux disease) History of pancreatitis 01/07/2023 Hypertension Pancreatitis Seizures ([facility]) SVT (supraventricular tachycardia) ([facility]) Tourette syndrome LABS: CBC: Recent Labs 02/04/24210702/05/24 0426 WBC -- 5.0 RBC -- 4.34* HGB 15.0 13.1 HCT -- 39.1* MCV -- 90.1 RDW -- 13.7 PLT -- 282 BMP: Recent Labs 02/04/24210702/05/24 0426 NA 144 140 K 4.1 4.3 CL 109* 107 CO2 24 23 BUN 4* 4* CREATININE 0.67* 0.64* GLUCOSE 115* 100 CALCIUM 8.3* 8.4 ANIONGAP 11 10 LIVER PROFILE: No results for input(s): AST, ALT, BILITOT, ALKPHOS, PROT in the last 72 hours. No lab exists for component: LABALBU PT/INR: No results for input(s): PROTIME, INR in the last 72 hours. CARDIAC ENZYMES: No results for input(s): TROPONINI in the last 72 hours. Procalcitonin: No results found for: PROCAL COVID-19 PCR: No results for input(s): COVID19 in the last 72 hours. Objective: Vitals: BP 116/75 Pulse 90 Temp 37.3 C (99.1 F) (Temporal) Resp 16 Ht 6' 1 (1.854 m) Wt 235 lb (107 kg) SpO2 94% BMI 31.00 kg/m Pulse Ox: SpO2 Av.5 % Min: 94 % Max: 95 % Supplemental O2: Physical Exam Vitals and nursing note reviewed. Constitutional: Appearance: Normal appearance. Cardiovascular: Rate and Rhythm: Normal rate. Pulmonary: Effort: Pulmonary effort is normal. Abdominal: General: Abdomen is flat. Neurological: Mental Status: He is alert. Psychiatric: Mood and Affect: Mood normal. Behavior: Behavior normal. Medications: folic acid, 1 mg, Oral, Daily influenza, 0.5 mL, IntraMUSCular, Once pantoprazole, 40 mg, Oral, qAM AC PHENobarbital, 32.4 mg, Oral, Q4H Followed by [START ON 02/08/2024] PHENobarbital, 16.2 mg, Oral, Q4H thiamine, 100 mg, Oral, Daily venlafaxine XR, 75 mg, Oral, Daily with breakfast Extended Emergency Contact Information Primary Emergency Contact: Summer Valdivia Mobile Relation: Mother Reyes Pulliam MD Division of Hospitalist Medicine [facility] * Nikky Escobar MD - 02/07/2024 10:17 AM EST Images from the original note were not included. ADDICTION MEDICINE PROGRESS NOTE Patient: Roro Valdivia __ Problem List: Principal Problem: Alcohol withdrawal syndrome without complication (HCC) Active Problems: Severe malnutrition (CMS/HCC) (HCC) SUBJECTIVE Chief Complaint Patient presents with Alcohol Problem Patient presents to ED for detox. States he normally drinks approx 5 one liter bottles of liquor per day. 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 Patient states history of seizures due to alcoholwithdrawal. Patient ambulating with unsteady gait and assistance of one due to intoxication. Patient stating he also needs detox from meth. Denies SI/HI. Cooperative with care provided during triage. Last 4 CIWA scores per RN assessments 0-2-8-1 Interim History Overall doing well in terms of withdrawal sx, tolerating medication without side effects Remains on poor terms with his mother, but notes he does have support of his stepmother - she brought him to the hospital and will be his ride to [facility] after he picks up clothes from his mothers home Tolerating Effexor without side effects Remains hopeful for care at [facility], notes previously had sustained sobriety after admission with them Review of Systems Review of Systems Constitutional: Negative for chills, diaphoresis, malaise/fatigue and night sweats. Eyes: Negative for visual disturbance. Cardiovascular: Negative for chest pain. Musculoskeletal: Negative for falls. Gastrointestinal: Negative for abdominal pain, nausea and vomiting. Neurological: Negative for headaches, light-headedness and tremors. Psychiatric/Behavioral: Negative for depression, hallucinations and suicidal ideas. The patient is not nervous/anxious. OBJECTIVE Vitals Vitals: 02/06/24 1302 02/06/24 1715 02/06/24200602/07/24 0420 BP: 130/86 139/96 115/63 Pulse: 87 98 71 Resp: 16 16 16 Temp: 36.4 C (97.6 F) 36.8 C (98.2 F) 36.4 C (97.6 F) TempSrc: Temporal Temporal Temporal SpO2: 94% 95% 95% Weight: Height: 1.854 m (6' 1) Physical Exam Constitutional: Appearance: Normal appearance. HENT: Mouth/Throat: Mouth: Mucous membranes are moist. Eyes: Extraocular Movements: Extraocular movements intact. Cardiovascular: Rate and Rhythm: Normal rate. Pulmonary: Effort: Pulmonary effort is normal. Abdominal: Palpations: Abdomen is soft. Musculoskeletal: General: Normal range of motion. Cervical back: Normal range of motion. Skin: General: Skin is warm. Neurological: General: No focal deficit present. Mental Status: He is alert and oriented to person, place, and time. Medications Home Meds Current Outpatient Medications Medication Instructions cloNIDine (CATAPRES) 0.1 mg, 2 times daily metoprolol succinate XL (TOPROL-XL) 50 mg, Oral, Daily, Do not crush or chew. pantoprazole (PROTONIX) 40 mg, Oral, 2 times daily before meals, Do not crush, chew, or split. risperiDONE (RISPERDAL) 0.5 mg, Oral, Nightly venlafaxine XR (EFFEXOR XR) 75 mg, Oral, Daily with breakfast, Do not crush or chew. Scheduled Inpatient Meds folic acid, 1 mg, Oral, Daily influenza, 0.5 mL, IntraMUSCular, Once pantoprazole, 40 mg, Oral, qAM AC PHENobarbital, 32.4 mg, Oral, Q4H Followed by [START ON 02/08/2024] PHENobarbital, 16.2 mg, Oral, Q4H sodium chloride 0.9%, 5 mL, IntraVENous, q12h thiamine, 100 mg, Oral, Daily venlafaxine XR, 75 mg, Oral, Daily with breakfast PRN Inpatient Meds PRN medications: acetaminophen, hydrOXYzine pamoate, ondansetron ODT OR ondansetron, polyethylene glycol (PEG) 3350, traZODone Continuous Inpatient Infusions Recent Imaging No results found. Labs CBC: Recent Labs 02/04/24 1306 02/04/24 1507 02/04/24210702/05/24 0426 WBC 8.6 -- -- 5.0 HGB 14.3 13.5 15.0 13.1 PLT 377 -- -- 282 MCV 90.9 -- -- 90.1 RDW 13.7 -- -- 13.7 BMP: Recent Labs 02/04/24 1306 02/04/24 2108 02/05/24 0426 NA 141 144 140 K 2.9* 4.1 4.3 CL 106 109* 107 CO2 20* 24 23 BUN 4* 4* 4* CREATININE 0.74 0.67* 0.64* CALCIUM 8.9 8.3* 8.4 Liver Profile: Recent Labs 02/04/24 1306 AST 463* ALT 189* BILITOT 0.5 ALKPHOS 192* PROT 7.9 Glucose: Recent Labs 02/04/24 1306 02/04/24 2108 02/05/24 0426 GLUCOSE 211* 115* 100 Lactic Acid: No lab exists for component: LACTA Cardiac Injury Profile: No results for input(s): CKTOTAL, CKMB, TROPONINI in the last 72 hours. Last 24 Hours: No results found for this or any previous visit (from the past 24 hours). ASSESSMENT & PLAN Alcohol use disorder Stimulant use disorder (cocaine) Hx fo Opioid use disorder Counseled patient on biopsychosocial consequences of substance use. Encouraged professional chemical dependency treatment. Encouraged 12 step meeting attendance. Follow up plan for addiction management discussed with patient: Plans to attend [facility]. Alcohol withdrawal Last use of aclohol was on 02/03. PNB taper to manage alcohol withdrawal symptoms. 32 q 4 hours for today. CIWA scores per unit protocol. PRN medications for withdrawal symptom management added. Encouraged to participate in all unit activities. RODRIGUEZ/MDD/Tourettes Will restart effexor XR 75mg, had been compliant with this at home pt states Disposition: Discharge anticipated in 2-3 days. This is pending: Resolution of withdrawal symptoms. Medical stabilization. Labs/tests/tasks to review: None. Nurse Ob to coordinate care with: IM. This patient was staffed with Dr. Alexandre. Nikky Escobar MD electronically signed this at 10:17 AM Cosigned by Louis Alexandre MD at 02/07/2024 8:33 PM EST Associated attestation - Louis Alexandre MD - 02/07/2024 8:33 PM EST I did spend over 35- minutes coordinating care,providing discussion on patient's medical,psychiatric and chemical dependency history, and discussion of treatment plan * Reyes Pulliam MD - 02/06/2024 5:16 PM EST Hospitalist Progress Note 02/06/2024 Assessment/Plan: Data: (CAT1) Reviewed 2 notes from different specialty or health system (each=1). (CAT1) Reviewed 2 labs/studies ordered by another provider not previously counted (each=1, panels count as 1). (LOW: 2x CAT1 or independent historian MOD: 3x CAT1 or 1x CAT3 EXTENSIVE: 3x CAT1 and 1x CAT3) # Alcohol use disorder with acute withdrawal, history of severe withdrawals # Cocaine use disorder, severe # Opiate use disorder # Benzodiazepine use # Anxiety/depression/Tourette's: Effexor -Appreciate addiction medicine for detox -Continue vitamin supplementation -Strongly recommend cessation -Monitor vitals and electrolytes -Possible admission to [facility] -Dietary consult, nutritional supplement - PT/OT/CM/SW - delirium precautions: increase activity - DVT prophylaxis: encourage ambulation Discharge Disposition: Anticipate DC pending clinical improvement, completion of detox Total time spent (which include face to face and non face to face encounters) : 36 minutes D/W RN Complexity: Acute illness with systemic symptoms (MOD). Multiple stable chronic illnesses (MOD). Risk: Admission to hospital-level care was considered or occurred (HIGH). Advance Directive: Full Code Toxic drug monitoring/narrow therapeutic index drug monitoring : # Drug name : # Route administered: # Method of monitoring: Subjective: Admit Date: 02/04/2024 PCP: Tam Hughes, DO Room#: E4-944/E4-149 A Brief Hospital course: Patient is a 38-year-old male with history of significant alcohol use, benzodiazepine use, months and fentanyl use, cocaine use, fentanyl use who presented to ED requesting detox. He has had multipleadmissions in the past requiring detox, never follow through with treatment recommendations and rela pses soon after discharge. He drinks multiple bottles of hard liquor daily, started drinking at theage of 16, last drink was prior to presentation 02/03, and also admitted to using methamphetamines at the same time. In the ED, he was tachycardic initially, which improved with fluids. Also found ezra hypokalemic, which resolved with replacement. He was initially admitted to medical floor, but with improvement of vital and labs, transfer to detox floor. Interval History: Patient in room States medications are controlling withdrawal symptoms Is having feelings of depression, panic attacks States that he does not eat much on a normal basis due to heavy amounts of alcohol use. Gets his nutrition from Ensure drinks Adult diet Regular 24HR INTAKE/OUTPUT: Intake/Output Summary (Last 24 hours) at 02/06/2024 1717 Last data filed at 02/06/2024 0605 Gross per 24 hour Intake 550 ml Output -- Net 550 ml Past Medical History: Past Medical History: Diagnosis Date Addiction to drug ([facility]) ([facility]) Alcohol abuse Alcohol withdrawal syndrome without complication ([facility]) 06/27/2022 Alcohol withdrawal with inpatient treatment, uncomplicated ([facility]) 03/15/2022 GERD (gastroesophageal reflux disease) History of pancreatitis 01/07/2023 Hypertension Pancreatitis Seizures ([facility]) SVT (supraventricular tachycardia) ([facility]) Tourette syndrome LABS: CBC: Recent Labs 02/04/24 1306 02/04/24 1507 02/04/24 21002/05/24 0426 WBC 8.6 -- -- 5.0 RBC 4.81 -- -- 4.34* HGB 14.3 13.5 15.0 13.1 HCT 43.7 -- -- 39.1* MCV 90.9 -- -- 90.1 RDW 13.7 -- -- 13.7 PLT 377 -- -- 282 BMP: Recent Labs 02/04/24 1306 02/04/24 2108 02/05/24 0426 NA 141 144 140 K 2.9* 4.1 4.3 CL 106 109* 107 CO2 20* 24 23 BUN 4* 4* 4* CREATININE 0.74 0.67* 0.64* GLUCOSE 211* 115* 100 CALCIUM 8.9 8.3* 8.4 ANIONGAP 15* 11 10 LIVER PROFILE: Recent Labs 02/04/24 1306 AST 463* ALT 189* BILITOT 0.5 ALKPHOS 192* PROT 7.9 PT/INR: No results for input(s): PROTIME, INR in the last 72 hours. CARDIAC ENZYMES: No results for input(s): TROPONINI in the last 72 hours. Procalcitonin: No results found for: PROCAL COVID-19 PCR: No results for input(s): COVID19 in the last 72 hours. Objective: Vitals: BP 130/86 Pulse 87 Temp 36.4 C (97.6 F) (Temporal) Resp 16 Ht 6' 1 (1.854 m) Wt 235 lb (107 kg) SpO2 94% BMI 31.00 kg/m Pulse Ox: SpO2 Av % Min: 94 % Max: 96 % Supplemental O2: Physical Exam Vitals and nursing note reviewed. Constitutional: Appearance: Normal appearance. Cardiovascular: Rate and Rhythm: Normal rate. Pulmonary: Effort: Pulmonary effort is normal. Abdominal: General: Abdomen is flat. Neurological: Mental Status: He is alert. Psychiatric: Mood and Affect: Mood normal. Behavior: Behavior normal. Medications: folic acid, 1 mg, Oral, Daily influenza, 0.5 mL, IntraMUSCular, Once PHENobarbital, 64.8 mg, Oral, Q4H Followed by [START ON 02/07/2024] PHENobarbital, 32.4 mg, Oral, Q4H Followed by [START ON 02/08/2024] PHENobarbital, 16.2 mg, Oral, Q4H sodium chloride 0.9%, 5 mL, IntraVENous, q12h thiamine, 100 mg, Oral, Daily [START ON 02/07/2024] venlafaxine XR, 75 mg, Oral, Daily with breakfast Extended Emergency Contact Information Primary Emergency Contact: Summer Valdivia Mobile Relation: Mother Reyes Pulliam MD Division of Hospitalist Medicine [facility] * Luisa Kilgore RD - 02/06/2024 5:05 PM EST Nutrition Assessment Type and Reason for Visit: Initial, Positive Nutrition Screen, Consult Nutrition Recommendations/Plan: Recommend an order for a PPI. Will increase the Ensure + to 4 per day adding one to 2pm. Will monitor GI status, po intake. Malnutrition Assessment: Malnutrition Status: Severe malnutrition Context: Social/Environmental Circumstances (while drinking, being filled w/anxiety, having panic attacks, skipped a lot of meals over the year) Findings of the 6 clinical characteristics of malnutrition: Energy Intake: 50% or less estimated energy requirements for 1 month or longer Weight Loss: Greater than 10% over 6 months (est. 13% Loss of UBW over 6 months) Body Fat Loss: No significant body fat loss Muscle Mass Loss: No significant muscle mass loss Fluid Accumulation: No significant fluid accumulation Control Clerk Strength: Not Performed Nutrition Assessment: Per 02/03 chart excerpt: 38 y.o. that presents to the emergency department for evaluation of substance dependence requesting detox. Patient states he drinks approximate 4/5 of liquor daily also recently has been using Valium meth amphetamines and Percocet., 02/05 chart excerpt: Refused breakfast. Discussed lunch, states he doesn't eat, only ensures. Called dietary, verified that he has not ordered food. Did order a ensure, fruit cup, chips and pretzels. Will get nutrition involved. States vomits often is why he does not eat. States that he has had a 40 lb weight loss and eats one bite of food weekly. Per pt.: @ home he feels he took one bite each week, @ home was involved in a [place] where he would drink, then when no ETOH was in his body he would vomit, the ETOH would stop his vomiting, did this for a year, was reliant on drinking one Ensure per day, oftens chokes when he panics and has a lot of anxiety, accustom to a PPI @ home for his GERD, chocolate makes him sick, likes the vanilla Ensure here, tried fruit today and has tolerated it so far; Per RN: patient is reliant on the Ensure and may do best w/4 per day Estimated Daily Nutrient Needs: Energy Requirements Based On: Kcal/kg Weight Used for Energy Requirements: [place] Weight for Energy Calculation (kg): 84 kg Total Energy Requirements (kcals/day): 2100 - 2520 kcals/day Weight Used for Protein Requirements: [place] Weight in Kg Used for Protein Requirements: 84 kg Estimated Total Protein (g/day): 92- 101gm protein/day Estimated Daily Total Fluid (ml/day): 2100 - 2520 mls/day Nutrition Related Findings: frequent emesis, ETOH abuse, 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 .64, low Current Nutrition Therapies: Adult diet Regular Current Oral Intake Average Meal Intake: 1-25% Average Supplements Intake: None Ordered Additional Calorie Sources Additional Calorie Sources: 1 van. Ensure + tid all meal times Anthropometric Measures: Height: 185.4 cm (6' 1) Current Body Weight: 107 kg (235 lb) Weight Source: Not Specified Admission Body Weight: 107 kg (235 lb) Usual Body Weight: 122 kg (270 lb) ([facility] 08/10/23) % Weight Change (Calculated): -13 [place] Body Weight (lbs) (Calculated): 184 lbs [place] Body Weight (Kg) (Calculated): 84 kg % [place] Body Weight (Calculated): 127.7 % BMI (kg/m2) (Calculated): 31 Weight Adjustment For: No Adjustment BMI Categories: Obese Class 1 (BMI 30.0-34.9) Nutrition Diagnosis: In context of social or environmental circumstances, Altered nutrition-related lab values, Overweight/Obese, Increased nutrient needs, Unintended weight loss, Predicted inadequate energy intake, Inadequate protein intake, Inadequate oral intake, Inadequate energy intake, Inadequate protein-energy intake, Severe malnutrition related to psychological cause or life stress, increase demand for energy/nutrients, altered GI function (ETOH abuse, bouts of vomiting) as evidenced by BMI, weight loss, vomiting, weight loss greater than or equal to 10% in 6 months, GI abnormality, lab values (est. 13% Loss of UBW over 6 months) Nutrition Interventions: Nutrition Education/Counseling: Counseling initiated (gave him Ensure coupons for homegoing) Coordination of Nutrition Care: Continue to monitor while inpatient, Coordination of Care Plan of Care discussed with: pt./RN Goals: Goals: PO intake 50% or greater, other (specify) Specify Other Goals: of supplement Nutrition Monitoring and Evaluation: Behavioral-Environmental Outcomes: Beliefs and Attitutes, Readiness for Change Food/Nutrient Intake Outcomes: Supplement Intake, Food and Nutrient Intake Physical Signs/Symptoms Outcomes: Biochemical Data, Chewing or Swallowing, GI Status, Fluid Status or Edema, Nausea or Vomiting, Hemodynamic Status, Meal Time Behavior, Nutrition Focused Physical Findings, Skin, Weight Discharge Planning: Assist with food insecurity, Continue Oral Nutrition Supplement, Continue current diet Luisa Kilgore RD Contact: via [facility] chat or office *[phone] * Nikky Escobar MD - 02/06/2024 9:46 AM EST Images from the original note were not included. ADDICTION MEDICINE PROGRESS NOTE Patient: Roro Valdivia __ Problem List: Principal Problem: Alcohol withdrawal syndrome without complication (HCC) SUBJECTIVE Chief Complaint Patient presents with Alcohol Problem Patient presents to ED for detox. States he normally drinks approx 5 one liter bottles of liquor per day. 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 Patient states history of seizures due to alcoholwithdrawal. Patient ambulating with unsteady gait and assistance of one due to intoxication. Patient stating he also needs detox from meth. Denies SI/HI. Cooperative with care provided during triage. Last 4 CIWA scores per RN assessments 5 - 5 - 3 - 14 Interim History Roro notes he had a verbal altercation with his mother who proceeded to kick him out - also lost use of her vehicle, which was his main source of transportation and for some time income Reports sx of withdrawal are largely controlled, notes anxiety and is amenable to being restarted on previous dose of Effexor Is hopeful for care at [facility], notes previously had sustained sobriety after admission with them Review of Systems Review of Systems Constitutional: Negative for chills, diaphoresis, malaise/fatigue and night sweats. Eyes: Negative for visual disturbance. Cardiovascular: Negative for chest pain. Musculoskeletal: Negative for falls. Gastrointestinal: Negative for abdominal pain, nausea and vomiting. Neurological: Positive for tremors. Negative for headaches and light-headedness. Psychiatric/Behavioral: Negative for depression, hallucinations and suicidal ideas. The patient is nervous/anxious. OBJECTIVE Vitals Vitals: 02/05/24 1737 02/05/24 2030 02/05/24 2346 02/06/24 0409 BP: 139/92 (!) 156/104 143/96 145/85 BP Location: Patient Position: Pulse: 72 71 67 58 Resp: 17 16 16 Temp: 37.1 C (98.7 F) 37.1 C (98.8 F) 36.9 C (98.4 F) TempSrc: Temporal Temporal Temporal SpO2: 96% 95% 94% Weight: Height: Physical Exam Constitutional: Appearance: Normal appearance. HENT: Mouth/Throat: Mouth: Mucous membranes are moist. Eyes: Extraocular Movements: Extraocular movements intact. Cardiovascular: Rate and Rhythm: Normal rate. Pulmonary: Effort: Pulmonary effort is normal. Abdominal: Palpations: Abdomen is soft. Musculoskeletal: General: Normal range of motion. Cervical back: Normal range of motion. Skin: General: Skin is warm. Neurological: General: No focal deficit present. Mental Status: He is alert and oriented to person, place, and time. Medications Home Meds Current Outpatient Medications Medication Instructions cloNIDine (CATAPRES) 0.1 mg, 2 times daily metoprolol succinate XL (TOPROL-XL) 50 mg, Oral, Daily, Do not crush or chew. pantoprazole (PROTONIX) 40 mg, Oral, 2 times daily before meals, Do not crush, chew, or split. risperiDONE (RISPERDAL) 0.5 mg, Oral, Nightly venlafaxine XR (EFFEXOR XR) 75 mg, Oral, Daily with breakfast, Do not crush or chew. Scheduled Inpatient Meds folic acid, 1 mg, Oral, Daily influenza, 0.5 mL, IntraMUSCular, Once PHENobarbital, 64.8 mg, Oral, Q4H Followed by [START ON 02/07/2024] PHENobarbital, 32.4 mg, Oral, Q4H Followed by [START ON 02/08/2024] PHENobarbital, 16.2 mg, Oral, Q4H sodium chloride 0.9%, 5 mL, IntraVENous, q12h thiamine, 100 mg, Oral, Daily PRN Inpatient Meds PRN medications: acetaminophen, hydrOXYzine pamoate, ondansetron ODT OR ondansetron, polyethylene glycol (PEG) 3350, traZODone Continuous Inpatient Infusions Recent Imaging No results found. Labs CBC: Recent Labs 02/04/24 1306 02/04/24 1507 02/04/24 2108 02/05/24 0426 WBC 8.6 -- -- 5.0 HGB 14.3 13.5 15.0 13.1 PLT 377 -- -- 282 MCV 90.9 -- -- 90.1 RDW 13.7 -- -- 13.7 BMP: Recent Labs 02/04/24 1306 02/04/24 2108 02/05/24 0426 NA 141 144 140 K 2.9* 4.1 4.3 CL 106 109* 107 CO2 20* 24 23 BUN 4* 4* 4* CREATININE 0.74 0.67* 0.64* CALCIUM 8.9 8.3* 8.4 Liver Profile: Recent Labs 02/04/24 1306 AST 463* ALT 189* BILITOT 0.5 ALKPHOS 192* PROT 7.9 Glucose: Recent Labs 02/04/24 1306 02/04/24 2108 02/05/24 0426 GLUCOSE 211* 115* 100 Lactic Acid: No lab exists for component: LACTA Cardiac Injury Profile: No results for input(s): CKTOTAL, CKMB, TROPONINI in the last 72 hours. Last 24 Hours: No results found for this or any previous visit (from the past 24 hours). ASSESSMENT & PLAN Alcohol use disorder Stimulant use disorder (cocaine) Hx fo Opioid use disorder Counseled patient on biopsychosocial consequences of substance use. Encouraged professional chemical dependency treatment. Encouraged 12 step meeting attendance. Follow up plan for addiction management discussed with patient: Hopeful for admission to [facility]. Alcohol withdrawal Last use of aclohol was on 02/03. PNB taper to manage alcohol withdrawal symptoms. 64 q 4 hours for today. CIWA scores per unit protocol. PRN medications for withdrawal symptom management added. Encouraged to participate in all unit activities. RODRIGUEZ/MDD/Tourettes Will restart effexor XR 75mg, had been compliant with this at home pt states Disposition: Discharge anticipated in 3-4 days. This is pending: Resolution of withdrawal symptoms. Medical stabilization. Labs/tests/tasks to review: None. Nurse Ob to coordinate care with: None. This patient was staffed with Dr. Alexandre. Nikky Escobar MD electronically signed this at 9:47 AM ] Cosigned by Louis Alexandre MD at 02/07/2024 8:32 PM EST Associated attestation - Louis Alexandre MD - 02/07/2024 8:32 PM EST I did spend over 35 minutes coordinating care,providing discussion on patient's medical,psychiatricand chemical dependency history, and discussion of treatment plan documented in this [facility]12-28-2024 Nurse Note* Velma Forman RN - 02/06/2024 8:08 PM EST Pt alert and oriented, med compliant, pt denies SI/HI/AVH, NV&D. Pt states he is still having alot of thoughts about needing to drink to deal with his panic attacks. Pt complaining of what he states is really bad GERD, Dr. Alexandre updated that pt states he usually takes protonix, new orders for protonix received. Pt encouraged to update staff with any change in condition. Will monitor pt for safety. [id number] Plan of care note* Care Plan - Feli May RN - 02/06/2024 5:52 PM EST Problem: Sensory Perceptual Alteration as Evidenced by Goal: Participates in unit activities Outcome: Not Progressing This patient up and ambulates in room and to get soda from the day room. This patient did not attend any groups. Gait is steady. Verified that patient had not been eating and has a weight loss. Academic Adviser up to see patient. This patient is cooperative with supliments ordered. [id number] Consult note* Luisa Kilgore RD - 02/06/2024 5:07 PM EST Associated Order(s): IP CONSULT TO DIETITIAN Type and Reason for Visit: Initial, Positive Nutrition Screen, Consult Nutrition Recommendations/Plan: Recommend an order for a PPI. Will increase the Ensure + to 4 per day adding one to 2pm. Will monitor GI status, po intake. Malnutrition Assessment: Malnutrition Status: Severe malnutrition Context: Social/Environmental Circumstances (while drinking, being filled w/anxiety, having panic attacks, skipped a lot of meals over the year) Findings of the 6 clinical characteristics of malnutrition: Energy Intake: 50% or less estimated energy requirements for 1 month or longer Weight Loss: Greater than 10% over 6 months (est. 13% Loss of UBW over 6 months) Body Fat Loss: No significant body fat loss Muscle Mass Loss: No significant muscle mass loss Fluid Accumulation: No significant fluid accumulation Control Clerk Strength: Not Performed Nutrition Assessment: Per 02/03 chart excerpt: 38 y.o. that presents to the emergency department for evaluation of substance dependence requesting detox. Patient states he drinks approximate 4/5 of liquor daily also recently has been using Valium meth amphetamines and Percocet., 02/05 chart excerpt: Refused breakfast. Discussed lunch, states he doesn't eat, only ensures. Called dietary, verified that he has not ordered food. Did order a ensure, fruit cup, chips and pretzels. Will get nutrition involved. States vomits often is why he does not eat. States that he has had a 40 lb weight loss and eats one bite of food weekly. Per pt.: @ home he feels he took one bite each week, @ home was involved in a [place] where he would drink, then when no ETOH was in his body he would vomit, the ETOH would stop his vomiting, did this for a year, was reliant on drinking one Ensure per day, oftens chokes when he panics and has a lot of anxiety, accustom to a PPI @ home for his GERD, chocolate makes him sick, likes the vanilla Ensure here, tried fruit today and has tolerated it so far; Per RN: patient is reliant on the Ensure and may do best w/4 per day Estimated Daily Nutrient Needs: Energy Requirements Based On: Kcal/kg Weight Used for Energy Requirements: [place] Weight for Energy Calculation (kg): 84 kg Total Energy Requirements (kcals/day): 2100 - 2520 kcals/day Weight Used for Protein Requirements: [place] Weight in Kg Used for Protein Requirements: 84 kg Estimated Total Protein (g/day): 92- 101gm protein/day Estimated Daily Total Fluid (ml/day): 2100 - 2520 mls/day Nutrition Related Findings: frequent emesis, ETOH abuse, 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 .64, low Current Nutrition Therapies: Adult diet Regular Current Oral Intake Average Meal Intake: 1-25% Average Supplements Intake: None Ordered Additional Calorie Sources Additional Calorie Sources: 1 van. Ensure + tid all meal times Anthropometric Measures: Height: 185.4 cm (6' 1) Current Body Weight: 107 kg (235 lb) Weight Source: Not Specified Admission Body Weight: 107 kg (235 lb) Usual Body Weight: 122 kg (270 lb) ([facility] 08/10/23) % Weight Change (Calculated): -13 [place] Body Weight (lbs) (Calculated): 184 lbs [place] Body Weight (Kg) (Calculated): 84 kg % [place] Body Weight (Calculated): 127.7 % BMI (kg/m2) (Calculated): 31 Weight Adjustment For: No Adjustment BMI Categories: Obese Class 1 (BMI 30.0-34.9) Nutrition Diagnosis: In context of social or environmental circumstances, Altered nutrition-related lab values, Overweight/Obese, Increased nutrient needs, Unintended weight loss, Predicted inadequate energy intake, Inadequate protein intake, Inadequate oral intake, Inadequate energy intake, Inadequate protein-energy intake, Severe malnutrition related to psychological cause or life stress, increase demand for energy/nutrients, altered GI function (ETOH abuse, bouts of vomiting) as evidenced by BMI, weight loss, vomiting, weight loss greater than or equal to 10% in 6 months, GI abnormality, lab values (est. 13% Loss of UBW over 6 months) Nutrition Interventions: Nutrition Education/Counseling: Counseling initiated (gave him Ensure coupons for homegoing) Coordination of Nutrition Care: Continue to monitor while inpatient, Coordination of Care Plan of Care discussed with: pt./RN Goals: Goals: PO intake 50% or greater, other (specify) Specify Other Goals: of supplement Nutrition Monitoring and Evaluation: Behavioral-Environmental Outcomes: Beliefs and Attitutes, Readiness for Change Food/Nutrient Intake Outcomes: Supplement Intake, Food and Nutrient Intake Physical Signs/Symptoms Outcomes: Biochemical Data, Chewing or Swallowing, GI Status, Fluid Status or Edema, Nausea or Vomiting, Hemodynamic Status, Meal Time Behavior, Nutrition Focused Physical Findings, Skin, Weight Discharge Planning: Assist with food insecurity, Continue Oral Nutrition Supplement, Continue current diet Luisa Kilgore RD Contact: via [facility] chat or office *[id number] [id number] Consult note* Luisa LICHA Kilgore - 02/06/2024 5:07 PM EST Associated Order(s): IP CONSULT TO DIETITIAN Type and Reason for Visit: Initial, Positive Nutrition Screen, Consult Nutrition Recommendations/Plan: Recommend an order for a PPI. Will increase the Ensure + to 4 per day adding one to 2pm. Will monitor GI status, po intake. Malnutrition Assessment: Malnutrition Status: Severe malnutrition Context: Social/Environmental Circumstances (while drinking, being filled w/anxiety, having panic attacks, skipped a lot of meals over the year) Findings of the 6 clinical characteristics of malnutrition: Energy Intake: 50% or less estimated energy requirements for 1 month or longer Weight Loss: Greater than 10% over 6 months (est. 13% Loss of UBW over 6 months) Body Fat Loss: No significant body fat loss Muscle Mass Loss: No significant muscle mass loss Fluid Accumulation: No significant fluid accumulation Control Clerk Strength: Not Performed Nutrition Assessment: Per 02/03 chart excerpt: 38 y.o. that presents to the emergency department for evaluation of substance dependence requesting detox. Patient states he drinks approximate 4/5 of liquor daily also recently has been using Valium meth amphetamines and Percocet., 02/05 chart excerpt: Refused breakfast. Discussed lunch, states he doesn't eat, only ensures. Called dietary, verified that he has not ordered food. Did order a ensure, fruit cup, chips and pretzels. Will get nutrition involved. States vomits often is why he does not eat. States that he has had a 40 lb weight loss and eats one bite of food weekly. Per pt.: @ home he feels he took one bite each week, @ home was involved in a [place] where he would drink, then when no ETOH was in his body he would vomit, the ETOH would stop his vomiting, did this for a year, was reliant on drinking one Ensure per day, oftens chokes when he panics and has a lot of anxiety, accustom to a PPI @ home for his GERD, chocolate makes him sick, likes the vanilla Ensure here, tried fruit today and has tolerated it so far; Per RN: patient is reliant on the Ensure and may do best w/4 per day Estimated Daily Nutrient Needs: Energy Requirements Based On: Kcal/kg Weight Used for Energy Requirements: [place] Weight for Energy Calculation (kg): 84 kg Total Energy Requirements (kcals/day): 2100 - 2520 kcals/day Weight Used for Protein Requirements: [place] Weight in Kg Used for Protein Requirements: 84 kg Estimated Total Protein (g/day): 92- 101gm protein/day Estimated Daily Total Fluid (ml/day): 2100 - 2520 mls/day Nutrition Related Findings: frequent emesis, ETOH abuse, 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 .64, low Current Nutrition Therapies: Adult diet Regular Current Oral Intake Average Meal Intake: 1-25% Average Supplements Intake: None Ordered Additional Calorie Sources Additional Calorie Sources: 1 van. Ensure + tid all meal times Anthropometric Measures: Height: 185.4 cm (6' 1) Current Body Weight: 107 kg (235 lb) Weight Source: Not Specified Admission Body Weight: 107 kg (235 lb) Usual Body Weight: 122 kg (270 lb) ([facility] 08/10[facility]) % Weight Change (Calculated): -13 Dumont Body Weight (lbs) (Calculated): 184 lbs Dum[place] Body Weight (Kg) (Calculated): 84 kg % [place] Body Weight (Calculated): 127.7 % BMI (kg/m2) (Calculated): 31 Weight Adjustment For: No Adjustment BMI Categories: Obese Class 1 (BMI 30.0-34.9) Nutrition Diagnosis: In context of social or environmental circumstances, Altered nutrition-related lab values, Overweight/Obese, Increased nutrient needs, Unintended weight loss, Predicted inadequate energy intake, Inadequate protein intake, Inadequate oral intake, Inadequate energy intake, Inadequate protein-energy intake, Severe malnutrition related to psychological cause or life stress, increase demand for energy/nutrients, altered GI function (ETOH abuse, bouts of vomiting) as evidenced by BMI, weight loss, vomiting, weight loss greater than or equal to 10% in 6 months, GI abnormality, lab values (est. 13% Loss of UBW over 6 months) Nutrition Interventions: Nutrition Education/Counseling: Counseling initiated (gave him Ensure coupons for homegoing) Coordination of Nutrition Care: Continue to monitor while inpatient, Coordination of Care Plan of Care discussed with: pt./RN Goals: Goals: PO intake 50% or greater, other (specify) Specify Other Goals: of supplement Nutrition Monitoring and Evaluation: Behavioral-Environmental Outcomes: Beliefs and Attitutes, Readiness for Change Food/Nutrient Intake Outcomes: Supplement Intake, Food and Nutrient Intake Physical Signs/Symptoms Outcomes: Biochemical Data, Chewing or Swallowing, GI Status, Fluid Status or Edema, Nausea or Vomiting, Hemodynamic Status, Meal Time Behavior, Nutrition Focused Physical Findings, Skin, Weight Discharge Planning: Assist with food insecurity, Continue Oral Nutrition Supplement, Continue current diet Luisa Kilgore RD Contact: via [employer] chat or office *[phone] * Stone Ramsey MD - 02/05/2024 11:10 AM ESTAssociated Order(s): IP CONSULT TO ADDICTION MEDICINE [facility] Consult service H&P Admit Date: 02/04/2024 Primary Care Physician: Tam Hughes DO ] Chief Complaint Patient presents with Alcohol Problem Patient presents to ED for detox. States he normally drinks approx 5 one liter bottles of liquor per day. 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 Patient states history of seizures due to alcoholwithdrawal. Patient ambulating with unsteady gait and assistance of one due to intoxication. Patient stating he also needs detox from meth. Denies SI/HI. Cooperative with care provided during triage. Substance dependence disorder History of Present Illness Roro Valdivia is a 38 y.o. year old male well-known to addiction medicine department from multiple admissions requiring alcohol detox Patient never follows through with his treatment recommendation and relapsed right away after discharge Patient started drinking when he was 16 years old became problematic right away He has a history of benzodiazepines and methamphetamine and cocaine use in the past He has a history of fentanyl use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 OR LORazepam OR LORazepam OR LORazepam, ondansetron ODT OR ondansetron, polyethylene glycol (PEG) 3350 @[id number]@ Plan . 1. Alcohol use disorder severe with withdrawals Day # 1 of no use Ciwa q 6 hours Thiamine and folate supplement daily The patient will be detoxified with phenobarb and prn medications for symptomology. This dose will be tapered according to clinical signs and symptoms. Patient is not stable due to risk of seizures and DTs specially that he had an manage past Estimate will need 4-5 extra days of detox 2 . cocaine use d/o severe Denies suicidal or homicidal ideation Denies cocaine induced psychosis not paranoid Very sleepy and tired Denies auditory or visual or tactile hallucination Denies chest pain Will not need detox from cocaine at this point counseled about the hazard of cocaine use d/o including strokes and CO 3 opioid use disorder the patient used to be on Suboxone however he is not displaying any withdrawal symptoms at this point Will keep an eye on Patient is not stable Stone Ramsey MD, MD Addiction Medicine 02/05/2024 at 11:[address] [facility] [place] Phone: [phone] History and physical note* Israel Garcia DO - 02/05/2024 2:42 AM EST Attending History and Physical Admit Date: 02/04/2024 PCP: Tam Hughes DO CHIEF COMPLAINT: Alcohol withdrawal Reason for Admission: Alcohol withdrawal History Obtained From: patient HISTORY OF PRESENT ILLNESS: Roro is a 38 y.o. male with past medical history below who presents with chief complaint listed above. Patient states he drinks multiple bottles of hard liquor daily, last drink just prior to presentation. He also admits to using meth earlier today to wake up. In the ED he was afebrile, heart rate 110 and initially downtrending to 80s, normal respirations, mild hypertension 150 systolic, satting well on room air. His initial labs showed K 2.9, ethanol 422. KIMBROUGH tox positive for cocaine. Will admit for further evaluation and management. Past Medical History: Past Medical History: Diagnosis Date Alcohol withdrawal syndrome without complication ([facility]) 06/27/2022 Alcohol withdrawal with inpatient treatment, uncomplicated ([facility]) 03/15/2022 GERD (gastroesophageal reflux disease) History of pancreatitis 01/07/2023 Hypertension Pancreatitis Seizures ([facility]) SVT (supraventricular tachycardia) ([facility]) Tourette syndrome Past Surgical History: Past Surgical History: Procedure Laterality Date APPENDECTOMY Social History: Social History Socioeconomic History Marital status: Single Spouse name: Not on file Number of children: Not on file Years of education: Not on file Highest education level: Not on file Occupational History Not on file Tobacco Use Smoking status: Every Day Current packs/day: 1.00 Types: Cigarettes Smokeless tobacco: Never Vaping Use Vaping status: Never Used Substance and Sexual Activity Alcohol use: Yes Comment: 2/5 vodka daily Drug use: Not Currently Types: Cocaine, Methamphetamines, Oxycodone, Fentanyl, Heroin, Benzodiazepines Sexual activity: Not Currently Other Topics Concern Not on file Social History Narrative Not on file Social Drivers of Health Financial Resource Strain: Low Risk (01/21/2024) Overall Financial Resource Strain (CARDIA) Difficulty of Paying Living Expenses: Not hard at all Recent Concern: Financial Resource Strain - Medium Risk (12/14/2023) Overall Financial Resource Strain (CARDIA) Difficulty of Paying Living Expenses: Somewhat hard Food Insecurity: Patient Unable To Answer (01/21/2024) Hunger Vital Sign Worried About Running Out of Food in the Last Year: Patient unable to answer Ran Out of Food in the Last Year: Patient unable to answer Transportation Needs: Patient Unable To Answer (01/21/2024) PRAPARE - Transportation Lack of Transportation (Medical): Patient unable to answer Lack of Transportation (Non-Medical): Patient unable to answer Recent Concern: Transportation Needs - Unmet Transportation Needs (12/16/2023) PRAPARE - Transportation Lack of Transportation (Medical): Yes Lack of Transportation (Non-Medical): Yes Physical Activity: Inactive (01/21/2024) Exercise Vital Sign Days of Exercise per Week: 0 days Minutes of Exercise per Session: 0 min Stress: Stress Concern Present (01/21/2024) [employer] - Occupational Stress Questionnaire Feeling of Stress : To some extent Social Connections: Socially Isolated (01/22/2024) Social Connection and Isolation Panel [NHANES] Frequency of Communication with Friends and Family: More than three times a week Frequency of Social Gatherings with Friends and Family: More than three times a week Attends [employer] Services: Never Active Member of Clubs or Organizations: No Attends Club or Organization Meetings: Never Marital Status: Never Intimate Partner Violence: Not At Risk (01/21/2024) Humiliation, Afraid, Rape, and Kick questionnaire Fear of Current or Ex-Partner: No Emotionally Abused: No Physically Abused: No Sexually Abused: No Housing Stability: High Risk (01/22/2024) Housing Stability Vital Sign Unable to Pay for Housing in the Last Year: Patient unable to answer Number of Times Moved in the Last Year: Not on file Homeless in the Last Year: Yes Family History: Family History Problem Relation Name Age of Onset No Known Problems Mother No Known Problems Father Medications Prior to Admission: No current facility-administered medications on file prior to encounter. Current Outpatient Medications on File Prior to Encounter Medication Sig Dispense Refill cloNIDine (Catapres) 0.1 MG tablet Take 0.1 mg by mouth 2 times daily. metoprolol succinate XL (Toprol-XL) 50 MG 24 hr tablet Take 1 tablet (50 mg) by mouth daily. Do notcrush or chew. 30 tablet 1 pantoprazole (ProtoNix) 40 MG EC tablet Take 1 tablet (40 mg) by mouth 2 times daily (before meals). Do not crush, chew, or split. 60 tablet 0 risperiDONE (RisperDAL) 0.5 MG tablet Take 1 tablet (0.5 mg) by mouth Nightly. 30 tablet 1 venlafaxine XR (Effexor XR) 75 MG 24 hr capsule Take 1 capsule (75 mg) by mouth daily (with breakfast). Do not crush or chew. Do not start before December 18, 2023. 30 capsule 1 Allergies: No Known Allergies REVIEW OF SYSTEMS: Constitutional: Negative for fever, chills, activity change and unexpected weight change. HEENT: Negative for congestion, postnasal drip and sneezing. Eyes: Negative for itching and visual disturbance. Respiratory: Negative for apnea, cough, choking, chest tightness, shortness of breath, wheezing andstridor. Cardiovascular: Negative for chest pain. Gastrointestinal: Negative for nausea, vomiting, abdominal pain, diarrhea and blood in stool. Genitourinary: Negative for dysuria, frequency and flank pain. Musculoskeletal: Negative for myalgias and joint swelling. Skin: Negative for rash. Neurological: Negative for dizziness, tremors, seizures, syncope, facial asymmetry, speech difficulty, weakness, numbness and headaches. Hematological: Negative for adenopathy. Psychiatric/Behavioral: Negative for suicidal ideas, behavioral problems, self- injury and dysphoricmood. Vitals: BP (!) 145/74 Pulse 84 Temp 36.6 C (97.9 F) (Temporal) Resp 18 Ht 6' 1 (1.854 m) Wt 235 lb (107 kg) SpO2 98% BMI 31.00 kg/m BMI Classification: Obese (BMI 30.0-39.9) Pulse Ox: SpO2 Av.4 % Min: 93 % Max: 98 % Supplemental O2: PHYSICAL EXAM: Physical Exam Vitals reviewed. Constitutional: General: He is not in acute distress. Appearance: Normal appearance. He is not ill-appearing. HENT: Head: Normocephalic and atraumatic. Right Ear: External ear normal. Left Ear: External ear normal. Nose: Nose normal. Mouth/Throat: Mouth: Mucous membranes are moist. Pharynx: Oropharynx is clear. Eyes: General: Right eye: No discharge. Left eye: No discharge. Pupils: Pupils are equal, round, and reactive to light. Cardiovascular: Rate and Rhythm: Normal rate. Pulses: Normal pulses. Pulmonary: Effort: Pulmonary effort is normal. No respiratory distress. Abdominal: General: Bowel sounds are normal. Palpations: Abdomen is soft. Musculoskeletal: General: No deformity. Normal range of motion. Cervical back: Normal range of motion and neck supple. No rigidity. Skin: General: Skin is warm and dry. Neurological: General: No focal deficit present. Mental Status: He is alert. Psychiatric: Mood and Affect: Mood normal. Behavior: Behavior normal. DATA: CBC: Recent Labs 02/04/24 1306 02/04/24 1507 02/04/24 2108 WBC 8.6 -- -- RBC 4.81 -- -- HGB 14.3 13.5 15.0 HCT 43.7 -- -- MCV 90.9 -- -- RDW 13.7 -- -- PLT 377 -- -- BMP: Recent Labs 02/04/24 1306 02/04/24 2108 NA 141 144 K 2.9* 4.1 CL 106 109* CO2 20* 24 BUN 4* 4* CREATININE 0.74 0.67* GLUCOSE 211* 115* CALCIUM 8.9 8.3* ANIONGAP 15* 11 LIVER PROFILE: Recent Labs 02/04/24 1306 AST 463* ALT 189* BILITOT 0.5 ALKPHOS 192* PROT 7.9 PT/INR: No results for input(s): PROTIME, INR in the last 72 hours. CARDIAC ENZYMES: No results for input(s): TROPONINI in the last 72 hours. Procalcitonin: No results found for: PROCAL Urine Culture: No results found for this or any previous visit. COVID-19 PCR: No results for input(s): COVID19 in the last 72 hours. I reviewed: [x] laboratory results [x] radiographic results At the time of today's encounter. Pt was advised of the results. Data: (CAT3) Discussed with ED provider, Dr. Landa, regarding patient's eval & mgmt thus far, and agree with the plan for hospitalization. (LOW: 2x CAT1 or independent historian MOD: 3x CAT1 or 1x CAT3 EXTENSIVE: 3x CAT1 and 1x CAT3) Assessment Discussed management with the ED provider and agree with hospitalization. Acute, acute on chronic, unstable/uncontrolled chronic problems/diagnoses: Alcohol withdrawal Stable chronic problems affecting care, new non-acute diagnoses: Plan As a result of the above findings & factors, the following mgmt was pursued: Alcohol withdrawal - CIWA w/ PRN ativan - thiamine, folate Polysubstance abuse - pt states he did meth to wake up or somethin' - tox positive for cocaine, which he denies using - am labs, replace lytes prn - PT/OT/CM/SW - delirium precautions: increase activity - DVT prophylaxis: enoxaparin and encourage ambulation Complexity: Acute illness or injury posing a threat to life or body function (HIGH). Risk: Admission to hospital-level care was considered or occurred (HIGH). Advance Directive: Prior Anticipated Discharge - Date - 02/06/24 - Location - Home - Pending the following - alcohol withdrawal Total time spent (which include face to face and non face to face encounters) : 78 minutes. Extended Emergency Contact Information Primary Emergency Contact: Summer Valdivia Mobile Relation: Mother Israel Garcia DO Division of Hospital Medicine Inpatient Medical Services/[place] Phone: [phone] [facility]12-27-2024 History and physical note* Israel Garcia DO - 02/05/2024 2:42 AM EST Attending History and Physical Admit Date: 02/04/2024 PCP: Tam Hughes DO CHIEF COMPLAINT: Alcohol withdrawal Reason for Admission: Alcohol withdrawal History Obtained From: patient HISTORY OF PRESENT ILLNESS: Roro is a 38 y.o. male with past medical history below who presents with chief complaint listed above. Patient states he drinks multiple bottles of hard liquor daily, last drink just prior to presentation. He also admits to using meth earlier today to wake up. In the ED he was afebrile, heart rate 110 and initially downtrending to 80s, normal respirations, mild hypertension 150 systolic, satting well on room air. His initial labs showed K 2.9, ethanol 422. KIMBROUGH tox positive for cocaine. Will admit for further evaluation and management. Past Medical History: Past Medical History: Diagnosis Date Alcohol withdrawal syndrome without complication ([facility]) 06/27/2022 Alcohol withdrawal with inpatient treatment, uncomplicated ([facility]) 03/15/2022 GERD (gastroesophageal reflux disease) History of pancreatitis 01/07/2023 Hypertension Pancreatitis Seizures ([facility]) SVT (supraventricular tachycardia) ([facility]) Tourette syndrome Past Surgical History: Past Surgical History: Procedure Laterality Date APPENDECTOMY Social History: Social History Socioeconomic History Marital status: Single Spouse name: Not on file Number of children: Not on file Years of education: Not on file Highest education level: Not on file Occupational History Not on file Tobacco Use Smoking status: Every Day Current packs/day: 1.00 Types: Cigarettes Smokeless tobacco: Never Vaping Use Vaping status: Never Used Substance and Sexual Activity Alcohol use: Yes Comment: 2/ vodka daily Drug use: Not Currently Types: Cocaine, Methamphetamines, Oxycodone, Fentanyl, Heroin, Benzodiazepines Sexual activity: Not Currently Other Topics Concern Not on file Social History Narrative Not on file Social Drivers of Health Financial Resource Strain: Low Risk (01/21/2024) Overall Financial Resource Strain (CARDIA) Difficulty of Paying Living Expenses: Not hard at all Recent Concern: Financial Resource Strain - Medium Risk (12/14/2023) Overall Financial Resource Strain (CARDIA) Difficulty of Paying Living Expenses: Somewhat hard Food Insecurity: Patient Unable To Answer (01/21/2024) Hunger Vital Sign Worried About Running Out of Food in the Last Year: Patient unable to answer Ran Out of Food in the Last Year: Patient unable to answer Transportation Needs: Patient Unable To Answer (01/21/2024) PRAPARE - Transportation Lack of Transportation (Medical): Patient unable to answer Lack of Transportation (Non-Medical): Patient unable to answer Recent Concern: Transportation Needs - Unmet Transportation Needs (12/16/2023) PRAPARE - Transportation Lack of Transportation (Medical): Yes Lack of Transportation (Non-Medical): Yes Physical Activity: Inactive (01/21/2024) Exercise Vital Sign Days of Exercise per Week: 0 days Minutes of Exercise per Session: 0 min Stress: Stress Concern Present (01/21/2024) [employer] - Occupational Stress Questionnaire Feeling of Stress : To some extent Social Connections: Socially Isolated (01/22/2024) Social Connection and Isolation Panel [NHANES] Frequency of Communication with Friends and Family: More than three times a week Frequency of Social Gatherings with Friends and Family: More than three times a week Attends [employer] Services: Never Active Member of Clubs or Organizations: No Attends Club or Organization Meetings: Never Marital Status: Never Intimate Partner Violence: Not At Risk (01/21/2024) Humiliation, Afraid, Rape, and Kick questionnaire Fear of Current or Ex-Partner: No Emotionally Abused: No Physically Abused: No Sexually Abused: No Housing Stability: High Risk (01/22/2024) Housing Stability Vital Sign Unable to Pay for Housing in the Last Year: Patient unable to answer Number of Times Moved in the Last Year: Not on file Homeless in the Last Year: Yes Family History: Family History Problem Relation Name Age of Onset No Known Problems Mother No Known Problems Father Medications Prior to Admission: No current facility-administered medications on file prior to encounter. Current Outpatient Medications on File Prior to Encounter Medication Sig Dispense Refill cloNIDine (Catapres) 0.1 MG tablet Take 0.1 mg by mouth 2 times daily. metoprolol succinate XL (Toprol-XL) 50 MG 24 hr tablet Take 1 tablet (50 mg) by mouth daily. Do notcrush or chew. 30 tablet 1 pantoprazole (ProtoNix) 40 MG EC tablet Take 1 tablet (40 mg) by mouth 2 times daily (before meals). Do not crush, chew, or split. 60 tablet 0 risperiDONE (RisperDAL) 0.5 MG tablet Take 1 tablet (0.5 mg) by mouth Nightly. 30 tablet 1 venlafaxine XR (Effexor XR) 75 MG 24 hr capsule Take 1 capsule (75 mg) by mouth daily (with breakfast). Do not crush or chew. Do not start before December 18, 2023. 30 capsule 1 Allergies: No Known Allergies REVIEW OF SYSTEMS: Constitutional: Negative for fever, chills, activity change and unexpected weight change. HEENT: Negative for congestion, postnasal drip and sneezing. Eyes: Negative for itching and visual disturbance. Respiratory: Negative for apnea, cough, choking, chest tightness, shortness of breath, wheezing andstridor. Cardiovascular: Negative for chest pain. Gastrointestinal: Negative for nausea, vomiting, abdominal pain, diarrhea and blood in stool. Genitourinary: Negative for dysuria, frequency and flank pain. Musculoskeletal: Negative for myalgias and joint swelling. Skin: Negative for rash. Neurological: Negative for dizziness, tremors, seizures, syncope, facial asymmetry, speech difficulty, weakness, numbness and headaches. Hematological: Negative for adenopathy. Psychiatric/Behavioral: Negative for suicidal ideas, behavioral problems, self- injury and dysphoricmood. Vitals: BP (!) 145/74 Pulse 84 Temp 36.6 C (97.9 F) (Temporal) Resp 18 Ht 6' 1 (1.854 m) Wt 235 lb (107 kg) SpO2 98% BMI 31.00 kg/m BMI Classification: Obese (BMI 30.0-39.9) Pulse Ox: SpO2 Av.4 % Min: 93 % Max: 98 % Supplemental O2: PHYSICAL EXAM: Physical Exam Vitals reviewed. Constitutional: General: He is not in acute distress. Appearance: Normal appearance. He is not ill-appearing. HENT: Head: Normocephalic and atraumatic. Right Ear: External ear normal. Left Ear: External ear normal. Nose: Nose normal. Mouth/Throat: Mouth: Mucous membranes are moist. Pharynx: Oropharynx is clear. Eyes: General: Right eye: No discharge. Left eye: No discharge. Pupils: Pupils are equal, round, and reactive to light. Cardiovascular: Rate and Rhythm: Normal rate. Pulses: Normal pulses. Pulmonary: Effort: Pulmonary effort is normal. No respiratory distress. Abdominal: General: Bowel sounds are normal. Palpations: Abdomen is soft. Musculoskeletal: General: No deformity. Normal range of motion. Cervical back: Normal range of motion and neck supple. No rigidity. Skin: General: Skin is warm and dry. Neurological: General: No focal deficit present. Mental Status: He is alert. Psychiatric: Mood and Affect: Mood normal. Behavior: Behavior normal. DATA: CBC: Recent Labs 02/04/24 1306 02/04/24 1507 02/04/24 2108 WBC 8.6 -- -- RBC 4.81 -- -- HGB 14.3 13.5 15.0 HCT 43.7 -- -- MCV 90.9 -- -- RDW 13.7 -- -- PLT 377 -- -- BMP: Recent Labs 02/04/24 1306 02/04/24 2108 NA 141 144 K 2.9* 4.1 CL 106 109* CO2 20* 24 BUN 4* 4* CREATININE 0.74 0.67* GLUCOSE 211* 115* CALCIUM 8.9 8.3* ANIONGAP 15* 11 LIVER PROFILE: Recent Labs 02/04/24 1306 AST 463* ALT 189* BILITOT 0.5 ALKPHOS 192* PROT 7.9 PT/INR: No results for input(s): PROTIME, INR in the last 72 hours. CARDIAC ENZYMES: No results for input(s): TROPONINI in the last 72 hours. Procalcitonin: No results found for: PROCAL Urine Culture: No results found for this or any previous visit. COVID-19 PCR: No results for input(s): COVID19 in the last 72 hours. I reviewed: [x] laboratory results [x] radiographic results At the time of today's encounter. Pt was advised of the results. Data: (CAT3) Discussed with ED provider, Dr. Landa, regarding patient's eval & mgmt thus far, and agree with the plan for hospitalization. (LOW: 2x CAT1 or independent historian MOD: 3x CAT1 or 1x CAT3 EXTENSIVE: 3x CAT1 and 1x CAT3) Assessment Discussed management with the ED provider and agree with hospitalization. Acute, acute on chronic, unstable/uncontrolled chronic problems/diagnoses: Alcohol withdrawal Stable chronic problems affecting care, new non-acute diagnoses: Plan As a result of the above findings & factors, the following mgmt was pursued: Alcohol withdrawal - CIWA w/ PRN ativan - thiamine, folate Polysubstance abuse - pt states he did meth to wake up or somethin' - tox positive for cocaine, which he denies using - am labs, replace lytes prn - PT/OT/CM/SW - delirium precautions: increase activity - DVT prophylaxis: enoxaparin and encourage ambulation Complexity: Acute illness or injury posing a threat to life or body function (HIGH). Risk: Admission to hospital-level care was considered or occurred (HIGH). Advance Directive: Prior Anticipated Discharge - Date - 02/06/24 - Location - Home - Pending the following - alcohol withdrawal Total time spent (which include face to face and non face to face encounters) : 78 minutes. Extended Emergency Contact Information Primary Emergency Contact: Summer Valdivia Mobile Relation: Mother Israel Yvette Garcia DO Division of Hospital Medicine Inpatient Medical Services/[facility] documented in this [address]26-2024 Emergency department Note* Antony Lester RN - 02/04/2024 11:09 PM EST Etoh detox admit. Responds to verbal. A/ox4. Report received from lunch covered nurse. Vss and updated. Oriented to call hooper. No distress. [address]26-2024 Emergency department Note* Maria Isabel Juarez RN - 02/04/2024 7:17 PM EST Report given to ana SHI [address]26-2024 Emergency department Note* Maria Isabel Juarez RN - 02/04/2024 6:54 PM EST Pt given warm blanket [address]26-2024 Emergency department Note* Maria Isabel Juarez RN - 02/04/2024 4:48 PM EST Provider messaged on pt behalf requesting something for detox [address]26-2024 Emergency department Note* Maria Isabel Juarez RN - 02/04/2024 2:57 PM EST Pt able to give urine sample in urinal at this time [address]26-2024 Emergency department Note* Maria Isabel Juarez RN - 02/04/2024 2:51 PM EST Pt refusing urinal. Deion santillan came into room to assist this RN with urine sample. Pt stating he can't urinate at this time. [facility]12-26-2024 Emergency department Note* Maria Isabel Juarez RN - 02/04/2024 1:16 PM EST Pt was max assist into bed with this RN, Brown SHI, Yosef EKG and Steve EKG. Seizure precautions initiated. Bed rails padded, suction connected, all safety maintained. Step mother at bed side. Pt refusing to remove clothing at this time. Pt wants to go to detox [facility]12-26-2024 Physician Emergency department Note* Francisco Landa MD - 02/04/2024 12:27 PM EST Emergency Department Encounter [facility] EMERGENCY DEPT Patient: Roro Valdivia : 1985 Date of Evaluation: 02/04/2024 ED Supervising Physician: Francisco Lnada MD I personally saw Roro Valdivia and made/approved the management plan and take responsibility for the patient management. In brief, Roro Valdivia is a 38 y.o. that presents to the emergency department for evaluation of substance dependence requesting detox. Patient states he drinks approximate 4/5 of liquor daily alsorecently has been using Valium meth amphetamines and Percocet. Patient has 1 previous withdrawal seizure but has had detox and withdrawal numerous other times without seizures. Patient's last drink was just prior to arrival. Focused exam: General appearance: Well-appearing, no acute distress. Clinically intoxicated Psych: Awake alert and oriented 3. Pleasant and cooperative. Skin: Warm and dry. Neck: Supple. Cardiovascular: Tachycardia through the rhythm Lungs:no accessory muscle use, tachypnea, or retractions. Abdomen: Soft, mild epigastric tenderness, and nondistended, no rebound, rigidity, or guarding, positive bowel sounds 4 quadrants. Extremities: Warm and well perfused. NROM and SILT throughout upper and lower extermities. Brief ED course/MDM: Patient presents emergency department for evaluation of alcohol dependence requesting detox. Patient appears to be clinically intoxicated upon arrival. Patient does have a history of pancreatitis as well. Patient evaluated and treated for alcohol dependence with plan for admission. EMERGENCY DEPARTMENT COURSE and DIFFERENTIAL DIAGNOSIS/MDM: Vitals: Vitals: 02/04/24 1235 02/04/24 1240 BP: (!) 150/108 Pulse: 110 Resp: 14 Temp: 36.6 C (97.9 F) TempSrc: Temporal SpO2: 98% 98% All diagnostic, treatment, and disposition decisions were made by myself in conjunction with the KOBY/Resident. I also supervised erickson portions of any procedures performed by the KOBY/Resident. For all further details of the patient's emergency department visit, please see their documentation. This will serve as my supervisory note and shared attestation. I did perform a substantiative portion of the visit including all aspects of the medical decision making. (Please note that portions of this note may have been completed with a voice recognition program. Efforts were made to edit the dictations but occasionally words are mis-transcribed.) Francisco Landa MD Acute Care [facility] Francisco Landa MD 02/04/24 1250 [email or web address] Phone: [phone] Physician Emergency department Note* Beatris Argueta PA-C - 02/04/2024 12:27 PM EST Emergency Department Encounter [facility] EMERGENCY DEPT Patient: Roro Valdivia : 1985 Date of Evaluation: 02/04/2024 ED KOBY Provider: Beatris Argueta PA-C EDcare was supervised by Dr. Landa who independently examined and evaluated the patient. Please see their attestation note for further details. Chief Complaint: Chief Complaint Patient presents with Alcohol Problem Patient presents to ED for detox. States he normally drinks approx 5 one liter bottles of liquor per day. 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 Patient states history of seizures due to alcoholwithdrawal. Patient ambulating with unsteady gait and assistance of one due to intoxication. Patient stating he also needs detox from meth. Denies SI/HI. Cooperative with care provided during triage. History of Present Illness: Roro Valdivia is a 38 y.o. male with past medical history of substance use who presented to the emergency department for evaluation of alcohol use, requesting detox. Patient uses approximately for 1/5 of alcohol daily, and last drink about 5 minutes prior to arrival, presents with his mom. She states that patient had a history of an isolated seizure many years ago, has detoxed inside without any issues of previous seizures, has also been using multiple substances over the last few days, unsure exactly what he has been using, mom states that patient would like to go to detox and then a inpatient rehab, patient agrees with this.. Nursing notes were reviewed. Limitations to history: Outside historians: Review of Systems: Positives and pertinent negatives as per HPI. All other systems were reviewed and are acutely negative except as noted. Past History: Past Medical History: Diagnosis Date Alcohol withdrawal syndrome without complication (HCC) 06/27/2022 Alcohol withdrawal with inpatient treatment, uncomplicated ([facility]) 03/15/2022 GERD (gastroesophageal reflux disease) History of pancreatitis 01/07/2023 Hypertension Pancreatitis Seizures ([facility]) SVT (supraventricular tachycardia) ([facility]) Tourette syndrome Past Surgical History: Procedure Laterality Date APPENDECTOMY Social History Socioeconomic History Marital status: Single Tobacco Use Smoking status: Every Day Current packs/day: 1.00 Types: Cigarettes Smokeless tobacco: Never Vaping Use Vaping status: Never Used Substance and Sexual Activity Alcohol use: Yes Comment: 2/5 vodka daily Drug use: Not Currently Types: Cocaine, Methamphetamines, Oxycodone, Fentanyl, Heroin, Benzodiazepines Sexual activity: Not Currently Social Drivers of Health Financial Resource Strain: Low Risk (01/21/2024) Overall Financial Resource Strain (CARDIA) Difficulty of Paying Living Expenses: Not hard at all Recent Concern: Financial Resource Strain - Medium Risk (12/14/2023) Overall Financial Resource Strain (CARDIA) Difficulty of Paying Living Expenses: Somewhat hard Food Insecurity: Patient Unable To Answer (01/21/2024) Hunger Vital Sign Worried About Running Out of Food in the Last Year: Patient unable to answer Ran Out of Food in the Last Year: Patient unable to answer Transportation Needs: Patient Unable To Answer (01/21/2024) PRAPARE - Transportation Lack of Transportation (Medical): Patient unable to answer Lack of Transportation (Non-Medical): Patient unable to answer Recent Concern: Transportation Needs - Unmet Transportation Needs (12/16/2023) PRAPARE - Transportation Lack of Transportation (Medical): Yes Lack of Transportation (Non-Medical): Yes Physical Activity: Inactive (01/21/2024) Exercise Vital Sign Days of Exercise per Week: 0 days Minutes of Exercise per Session: 0 min Stress: Stress Concern Present (01/21/2024) [employer] - Occupational Stress Questionnaire Feeling of Stress : To some extent Social Connections: Socially Isolated (01/22/2024) Social Connection and Isolation Panel [NHANES] Frequency of Communication with Friends and Family: More than three times a week Frequency of Social Gatherings with Friends and Family: More than three times a week Attends [employer] Services: Never Active Member of Clubs or Organizations: No Attends Club or Organization Meetings: Never Marital Status: Never Intimate Partner Violence: Not At Risk (01/21/2024) Humiliation, Afraid, Rape, and Kick questionnaire Fear of Current or Ex-Partner: No Emotionally Abused: No Physically Abused: No Sexually Abused: No Housing Stability: High Risk (01/22/2024) Housing Stability Vital Sign Unable to Pay for Housing in the Last Year: Patient unable to answer Homeless in the Last Year: Yes Medications/Allergies: Previous Medications CLONIDINE (CATAPRES) 0.1 MG TABLET Take 0.1 mg by mouth 2 times daily. METOPROLOL SUCCINATE XL (TOPROL-XL) 50 MG 24 HR TABLET Take 1 tablet (50 mg) by mouth daily. Do notcrush or chew. PANTOPRAZOLE (PROTONIX) 40 MG EC TABLET Take 1 tablet (40 mg) by mouth 2 times daily (before meals). Do not crush, chew, or split. RISPERIDONE (RISPERDAL) 0.5 MG TABLET Take 1 tablet (0.5 mg) by mouth Nightly. VENLAFAXINE XR (EFFEXOR XR) 75 MG 24 HR CAPSULE Take 1 capsule (75 mg) by mouth daily (with breakfast). Do not crush or chew. Do not start before December 18, 2023. No Known Allergies Physical Exam: ED Triage Vitals [02/04/24 1235] Temp Heart Rate Resp BP 36.6 C (97.9 F) 110 14 (!) 150/108 SpO2 Temp Source Heart Rate Source Patient Position 98 % Temporal Monitor -- BP Location FiO2 (%) -- -- Physical Exam Vitals and nursing note reviewed. Constitutional: General: He is not in acute distress. Appearance: He is well-developed. Comments: Patient is visibly intoxicated, slurring his words HENT: Head: Normocephalic and atraumatic. Mouth/Throat: Mouth: Mucous membranes are moist. Eyes: Conjunctiva/sclera: Conjunctivae normal. Cardiovascular: Rate and Rhythm: Normal rate and regular rhythm. Heart sounds: No murmur heard. Pulmonary: Effort: Pulmonary effort is normal. No respiratory distress. Breath sounds: Normal breath sounds. Abdominal: Palpations: Abdomen is soft. Tenderness: There is no abdominal tenderness. Musculoskeletal: General: No swelling. Cervical back: Neck supple. Skin: General: Skin is warm and dry. Capillary Refill: Capillary refill takes less than 2 seconds. Neurological: Mental Status: He is alert and oriented to person, place, and time. Sensory: No sensory deficit. Motor: No weakness. Psychiatric: Mood and Affect: Mood normal. Screenings: Patients symptoms are consistent with sepsis, severe sepsis, or septic shock (If yes use .sepsiscoremeasure): Diagnostics: Labs: Labs Reviewed CBC WITH AUTO DIFFERENTIAL - Abnormal Result Value Auto WBC 8.6 RBC 4.81 Hemoglobin 14.3 Hematocrit 43.7 MCV 90.9 MCH 29.7 MCHC 32.7 RDW 13.7 Platelets 377 MPV 9.8 nRBC 0.0 Neutrophils Relative 37.0 (*) Lymphocytes Relative 54.6 (*) Monocytes Relative 6.4 Eosinophils Relative 0.8 Basophils Relative 1.0 Immature Grans % 0.2 Neutrophils Absolute 3.2 Lymphocytes Absolute 4.7 (*) Monocytes Absolute 0.6 Eosinophils Absolute 0.1 Basophils Absolute 0.1 Immature Grans Absolute 0.0 COMPREHENSIVE METABOLIC PANEL - Abnormal SODIUM 141 POTASSIUM 2.9 (*) CHLORIDE 106 CARBON DIOXIDE 20 (*) ANION GAP 15 (*) UREA NITROGEN 4 (*) CREATININE 0.74 GLUCOSE 211 (*) CALCIUM 8.9 AST (SGOT) 463 (*) ALT 189 (*) ALKALINE PHOSPHATASE 192 (*) ALBUMIN 4.1 BILIRUBIN, TOTAL 0.5 TOTAL PROTEIN 7.9 eGFR >90.0 ETHANOL - Abnormal ETHANOL IN SER/PLAS 422 (*) Narrative: 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 NOTE: This result is for medical treatment only. Analysis performed using non- forensic procedures. BLOOD GAS, VENOUS - Abnormal pH, Venous 7.185 (*) pCO2, Venous 42.7 pO2, Venous 131.7 HCO3, Venous 15.8 (*) O2 Sat, Venous 97.4 Base Excess, Venous -12.0 (*) Hgb, blood gas 13.5 TCO2, Venous 17.1 (*) Source Of Oxygen Room Air Narrative: Assessment of oxygenation is best done with an arterial blood gas determination. Reference ranges for pO2, bicarbonate, and base excess are for mixed venous blood. Specimens drawn from a peripheral vein will often have higher values. SARS-COV-2 ANTIGEN - Normal SARS-CoV-2 Antigen Negative DRUGS OF ABUSE AMPHETAMINE SCREEN Negative BARBITURATES SCREEN Negative BENZODIAZEPINE SCREEN Negative COCAINE METAB. SCREEN Positive METHADONE SCREEN Negative OPIATES SCREEN Negative OXYCODONE SCREEN Negative PHENCYCLIDINE SCREEN Negative FENTANYL SCREEN, UR QUAL Negative Narrative: The expected value for all of the drugs listed above is Negative. The following drugs or drug groups have been screened for by Immunoassay at the following thresholds: Amphetamine class (1000 ng/mL) Barbiturates (200 ng/mL) Benzodiazepines (200 ng/mL) Cocaine (300 ng/mL) Methadone (300 ng/mL) Opiates (300 ng/mL) Oxycodone (100 ng/mL) PCP (25 ng/mL) Fentanyl (1.0 ng/ml) NOTE: These results are for medical treatment only. Analysis performed using non-forensic procedures. POSITIVE results are NOT confirmed by a more specific alternative method unless requested. If confirmation is needed, request confirmation under separateorder. BASIC METABOLIC PANEL BLOOD GAS, VENOUS ETHANOL Radiographs: No orders to display Procedures: Procedures EKG: All EKG's are interpreted by the Emergency Department Physician in the absence of a production control planner. Please see Epiphany for interpretation of EKG. Emergency Department Course and Medical Decision Making In brief, Roro Valdivia is a 38 y.o. male who presented to the emergency department for evaluation of all intoxication, alcohol withdrawal. Physical exam as above, patient nontoxic in appearance. Vital signs upon arrival are normal External records reviewed: Patient is visibly intoxicated, alcohol level is 422. Patient has slightly low bicarb and increasedanion gap, concern for alcohol ketosis, VBG was obtained which showed a pH of 7.18 with a bicarb of15. Patient's liver enzymes are elevated, likely secondary to alcohol use. Potassium was 2.9, replaced orally. Patient was given dose of Ativan as well as oral phenobarbital. Patient is expressing withdrawal symptoms, no signs of tremors, hallucinations. Patient given 1 L of IV fluids, will repeat labs afterwards to see if they improve, discussed this with [facility] attending, and recommended rechecking labs after liter of fluids. Patient's potassium improved, 4.1, CO2 is 24, anion gap closed and is 11. pH is 7.38. Reach out to addiction medicine, recommended medical admission, was admitted to [facility] for detox MDM elements: Diagnostic tests considered but not performed: Diagnostics interpreted by me: Discussions with other clinicians: Chronic conditions impacting care: Social determinants of health affecting care: . ED Medications managed: Medications potassium chloride CR (Klor-Con M10) ER tablet 40 mEq (40 mEq Oral Given 02/04/24 1501) sodium chloride 0.9 % bolus 1,000 mL (1,000 mL IntraVENous New Bag 02/04/24 1555) LORazepam (Ativan) injection 2 mg (2 mg IntraVENous Given 02/04/24 1653) PHENobarbital tablet 97.2 mg (97.2 mg Oral Given 02/04/24 1652) Prescription drugs considered: Critical Care: None Consults: None FINAL IMPRESSION No diagnosis found. DISPOSITION: PATIENT REFERRED TO: No follow-up provider specified. DISCHARGE MEDICATIONS: New Prescriptions No medications on file Beatris Argueta PA-C [facility] [employer] Beatris Argueta PA-C 02/06/24 [address] [employer] Phone: [phone] Telephone encounter Note* Telephone Encounter - Roma Mckenzie RN - 01/29/2024 5:40 PM EST Called for post discharge follow up, no answer, voicemail left. [employer]12-20-2024 Miscellaneous Notes* Telephone Encounter - Roma Mckenzie RN - 01/29/2024 5:40 PM EST Called for post discharge follow up, no answer, voicemail left. documented in this [facility]SDay[facility] [id number] Nurse Note* Jade Gutierrez RN - 01/26/2024 4:13 PM EST Patient verbalized understanding of all discharge instructions including medications, follow up appointments, s&s of infection, and when to call the physician. [id number]* Jade Gutierrez RN - 01/26/2024 4:13 PM EST Patient verbalized understanding of all discharge instructions including medications, follow up appointments, s&s of infection, and when to call the physician. * Roma Mckenzie RN - 01/22/2024 12:21 PM EST This [facility] RN saw patient on floor today for an MARTHA assessment. Patient has been drinking alcohol since the age of 16 with multiple admissions to the detox unit in the past. Patient has chronic pancreatitis which has acute flare ups when he drinks alcohol. He states that he refrained from alcohol useafter his last admission back in December. Patient states that a friend had asked him to go out fora drink and he didn't think that one day of drinking would flare up his pancreatitis that bad. Six days ago he says he drank 1 fifth of vodka which led to worsening symptoms of abdominal pain which led him to come to ED. He states each time it gets worse, which is a strong motivator for him to not drink. He also has past mental health diagnosis of anxiety and Tourettes which he takes Effexor for but was afraid to take any liquids with his pain level being high and me missed a few doses affecting his anxiety on admission which led to him receiving Ativan doses. CIWA score is 1 due to anxietyother than this, no alcohol withdrawal symptoms at this time. Patient states he feels better today a nd is going to attempt to eat and then possibly be discharged tomorrow. Patient lives with his mother who is supportive of his recovery. Patient familiar with outpatient addiction services. He states I will be okay, I don't want to have a flare up anymore more and declined any addiction services at this time. We discussed AA meetings, sponsorship, and peer recovery coaches. He is familiar with [facility] in which he receives services through them including housing referrals and knows how to obtaina PRC on his own he states. First Step handout given and I also discussed Vivitrol with patient andprovided him a handout. Patient agrees to follow up phone calls. * Cherelle Santillan RN - 01/21/2024 1:30 AM EST Pt. On unit. BP remains elevated at 160/114. MD made aware and are okay with BP at present time. * Blank Sharif RN - 01/20/2024 7:40 PM EST PT stating he is having a panic attack, pacing in room, c/o difficulty breathing and panic. CIWA 28on assessment, medicated per order. Pt stating relief within minutes. Bolus hung. Pt asked to return to bed, ambulated with a steady gate. Siderail up x1,no distress at this time. documented in this encounterSDayton Children[facility] [id number] [facility] 01-26-2024 Hospital Discharge instructions* Discharge Instr - Activity* Donald Julian DO - 01/26/2024 10:45 AM EST As tolerated * Attachments The following attachments cannot be sent through Care Everywhere. * Pancreatitis Discharge Instructions ([place]) * Alcohol Use Disorder ED (South Korean) * Nausea and Vomiting, Adult ([place]) documented in this [facility]12-17-2024 History of Present illness Narrative* Donald Julian DO - 01/26/2024 10:23 AM EST Hospitalist Progress Note 01/26/2024 Subjective: Admit Date: 01/20/2024 PCP: Tam Hughes DO Room#: [id number] A Brief Hospital course: Roro is a 38 y.o. male with history of alcohol abuse, prior history of pancreatitis, hypertension who comes into the hospital with complaints of abdominal pain which started couple of days ago. Patient apparently stopped drinking for the past couple of weeks but had relapsed and started drinking aga in heavily over the past 4 days. He notices worsening abdominal pain today. Has some nausea and vomiting, denies any hematemesis. Denies any dizziness, lightheadedness. Lipase was slightly elevated to [address] abdomen concerning for acute pancreatitis. Admitted for further management. Interval History: 01/26/2024-No overnight issues or complaints. Patient states that he feels better today and wants to go home. Case and plan discussed with patient and case management. All questions answered. Past Medical History: Past Medical History: Diagnosis Date Alcohol withdrawal syndrome without complication ([facility]) 06/27/2022 Alcohol withdrawal with inpatient treatment, uncomplicated ([facility]) 03/15/2022 GERD (gastroesophageal reflux disease) History of pancreatitis 01/07/2023 Hypertension Pancreatitis Seizures ([facility] [facility] (supraventricular tachy[facility]) ([facility]) Tourette syndrome Adult diet Full liquid 24HR INTAKE/OUTPUT: Intake/Output Summary (Last 24 hours) at 01/26/2024 1023 Last data filed at 01/25/2024 1844 Gross per 24 hour Intake 60 ml Output 4 ml Net 56 ml LABS: CBC: No results for input(s): WBC, RBC, HGB, HCT, MCV, RDW, PLT in the last 72 hours. BMP: Recent Labs 01/26/24 0109 NA 138 K 3.7 CL 106 CO2 25 BUN 3* CREATININE 0.64* GLUCOSE 98 CALCIUM 9.4 ANIONGAP 7 LIVER PROFILE: Recent Labs 01/26/24 0109 AST 94* ALT 70* BILITOT 1.0 ALKPHOS 129 PROT 7.0 PT/INR: No results for input(s): PROTIME, INR in the last 72 hours. CARDIAC ENZYMES: No results for input(s): TROPONINI in the last 72 hours. Procalcitonin: No results found for: PROCAL COVID-19 PCR: No results for input(s): COVID19 in the last 72 hours. Objective: Vitals: BP 134/92 (BP Location: Right arm, Patient Position: Lying) Pulse 83 Temp 36.5 C (97.7 F) (Temporal) Resp 18 SpO2 97% Pulse Ox: SpO2 Av.3 % Min: 95 % Max: 97 % Supplemental O2: Physical Exam Cardiovascular: Rate and Rhythm: Normal rate and regular rhythm. Pulses: Normal pulses. Heart sounds: Normal heart sounds. Pulmonary: Effort: Pulmonary effort is normal. Breath sounds: Normal breath sounds. Abdominal: Palpations: Abdomen is soft. Tenderness: There is abdominal tenderness. Medications: Scheduled PRN cloNIDine, 0.1 mg, Oral, q12h enoxaparin, 40 mg, SubCUTAneous, Daily folic acid, 1 mg, Oral, Daily influenza, 0.5 mL, IntraMUSCular, Once influenza, 0.5 mL, IntraMUSCular, Once metoprolol succinate XL, 50 mg, Oral, Daily pantoprazole, 40 mg, Oral, BID AC risperiDONE, 0.5 mg, Oral, Nightly thiamine, 100 mg, Oral, Daily venlafaxine XR, 75 mg, Oral, Daily with breakfast PRN medications: acetaminophen OR acetaminophen, hydrALAZINE, ketorolac, LORazepam OR LORazepam OR LORazepam OR LORazepam OR LORazepam OR LORazepam OR LORazepam OR LORazepam, morphine sulfate, naloxone, ondansetron ODT OR ondansetron, oxyCODONE OR oxyCODONE, polyethylene glycol (PEG) 3350 Continuous Assessment Data: (CAT1) Reviewed 3 or more notes from different specialty or health system (each=1). (LOW: 2x CAT1 or independent historian MOD: 3x CAT1 or 1x CAT3 EXTENSIVE: 3x CAT1 and 1x CAT3) Acute, acute on chronic, unstable/uncontrolled chronic problems: Alcohol induced pancreatitis-resolving Alcohol abuse Abnormal LFTs likely 2/2 alcohol use-better Hypertension Stable chronic problems affecting care, new non-acute diagnoses: GERD-history of esophagitis Depression Plan As a result of the above findings & factors, the following mgmt was pursued: - advance to reg diet, continue PPI - Detox is complete, addiction med has signed off - am labs, replace lytes prn - PT/OT/CM/SW - delirium precautions: increase activity - DVT prophylaxis: enoxaparin and encourage ambulation Complexity: Acute illness or injury posing a threat to life or body function (HIGH). Risk: Prescription drug/IVF/colloid was initiated, discontinued, adjusted; or reviewed with decision to maintain current orders (MOD). Advance Directive: Full Code Anticipated Discharge - Date - 01/26/24 - Location - Home - Pending the following - transportation Total time spent (which include face to face and non face to face encounters) : 31 minutes Extended Emergency Contact Information Primary Emergency Contact: Summer Valdivia Mobile Relation: Mother Donald Julian DO Division of Hospital Medicine Inpatient Medical Services/[facility] * Donald Julian DO - 01/25/2024 1:00 PM EST Hospitalist Progress Note 01/25/2024 Subjective: Admit Date: 01/20/2024 PCP: Tam Hughes DO Room#: [id number] A Brief Hospital course: Roro is a 38 y.o. male with history of alcohol abuse, prior history of pancreatitis, hypertension who comes into the hospital with complaints of abdominal pain which started couple of days ago. Patient apparently stopped drinking for the past couple of weeks but had relapsed and started drinking aga in heavily over the past 4 days. He notices worsening abdominal pain today. Has some nausea and vomiting, denies any hematemesis. Denies any dizziness, lightheadedness. Lipase was slightly elevated to [address] abdomen concerning for acute pancreatitis. Admitted for further management. Interval History: 01/25/2024-Patient states that he was feeling better and close to being able to go home however overnight and this morning, patient with increased abdominal pain and nausea. Unable to tolerate food..Also with complaints of a headache. Case and plan discussed with patient and bedside nurse. All questions answered. Past Medical History: Past Medical History: Diagnosis Date Alcohol withdrawal syndrome without complication (HCC) 06/27/2022 Alcohol withdrawal with inpatient treatment, uncomplicated (HCC) 03/15/2022 GERD (gastroesophageal reflux disease) History of pancreatitis 01/07/2023 Hypertension Pancreatitis Seizures (HCC) SVT (supraventricular tachycardia) ([facility]) Tourette syndrome Adult diet Full liquid 24HR INTAKE/OUTPUT: Intake/Output Summary (Last 24 hours) at 01/25/2024 1300 Last data filed at 01/25/2024 0604 Gross per 24 hour Intake 3458.33 ml Output -- Net 3458.33 ml LABS: CBC: No results for input(s): WBC, RBC, HGB, HCT, MCV, RDW, PLT in the last 72 hours. BMP:No results for input(s): NA, K, CL, CO2, BUN, CREATININE, GLUCOSE, CALCIUM, ANIONGAP in the last 72 hours. LIVER PROFILE:No results for input(s): AST, ALT, BILITOT, ALKPHOS, PROT in the last 72 hours. No lab exists for component: LABALBU PT/INR: No results for input(s): PROTIME, INR in the last 72 hours. CARDIAC ENZYMES: No results for input(s): TROPONINI in the last 72 hours. Procalcitonin: No results found for: PROCAL COVID-19 PCR: No results for input(s): COVID19 in the last 72 hours. Objective: Vitals: BP (!) 162/127 (BP Location: Left arm, Patient Position: Sitting) Pulse 95 Temp 36.4 C (97.5 F) (Temporal) Resp 15 SpO2 97% Pulse Ox: SpO2 Av.3 % Min: 96 % Max: 99 % Supplemental O2: Physical Exam Cardiovascular: Rate and Rhythm: Normal rate and regular rhythm. Pulses: Normal pulses. Heart sounds: Normal heart sounds. Pulmonary: Effort: Pulmonary effort is normal. Breath sounds: Normal breath sounds. Abdominal: Palpations: Abdomen is soft. Tenderness: There is abdominal tenderness. Medications: Scheduled PRN enoxaparin, 40 mg, SubCUTAneous, Daily folic acid, 1 mg, Oral, Daily influenza, 0.5 mL, IntraMUSCular, Once influenza, 0.5 mL, IntraMUSCular, Once metoprolol succinate XL, 50 mg, Oral, Daily pantoprazole, 40 mg, Oral, BID AC risperiDONE, 0.5 mg, Oral, Nightly thiamine, 100 mg, Oral, Daily venlafaxine XR, 75 mg, Oral, Daily with breakfast PRN medications: acetaminophen OR acetaminophen, hydrALAZINE, LORazepam OR LORazepam ORLORazepam OR LORazepam OR LORazepam OR LORazepam OR LORazepam OR LORazepam, morphine sulfate, naloxone, ondansetron ODT OR ondansetron, oxyCODONE OR oxyCODONE, polyethylene glycol (PEG) 3350 Continuous sodium chloride, 75 mL/hr, Last Rate: 75 mL/hr (01/25/24 1259) Assessment Data: (CAT1) Reviewed 3 or more notes from different specialty or health system (each=1). (LOW: 2x CAT1 or independent historian MOD: 3x CAT1 or 1x CAT3 EXTENSIVE: 3x CAT1 and 1x CAT3) Acute, acute on chronic, unstable/uncontrolled chronic problems: Alcohol induced pancreatitis-resolving Alcohol abuse Abnormal LFTs likely 2/2 alcohol use Hypertension-uncontrolled Stable chronic problems affecting care, new non-acute diagnoses: GERD-history of esophagitis Depression Plan As a result of the above findings & factors, the following mgmt was pursued: - FLD for now, continue PPI - Detox is complete, addiction med has signed off - restart Clonidine BID - dc IVFs - am labs, replace lytes prn - PT/OT/CM/SW - delirium precautions: increase activity - DVT prophylaxis: enoxaparin and encourage ambulation Complexity: Acute illness or injury posing a threat to life or body function (HIGH). Risk: Prescription drug/IVF/colloid was initiated, discontinued, adjusted; or reviewed with decision to maintain current orders (MOD). Advance Directive: Full Code Anticipated Discharge - Date - 01/26/24? - Location - Home - Pending the following - clinical course, ability to tolerate diet Total time spent (which include face to face and non face to face encounters) : 41 minutes Extended Emergency Contact Information Primary Emergency Contact: Summer Valdivia Mobile Relation: Mother Donald De Jesusreta Division of [facility] Medicine Inpatient Medical Services/[facility] [place] * William Sparks MD - 01/24/2024 11:21 AM EST Hospitalist Progress Note 01/24/2024 Subjective: Admit Date: 01/20/2024 PCP: Tam Hughes DO Room#: [id number] A BRIEF HOSPITAL COURSE: Roro is a 38 y.o. male with history of alcohol abuse, prior history of pancreatitis, hypertension who comes into the hospital with complaints of abdominal pain which started couple of days ago. Patient apparently stopped drinking for the past couple of weeks but had relapsed and started drinking aga in heavily over the past 4 days. He notices worsening abdominal pain today. Has some nausea and vomiting, denies any hematemesis. Denies any dizziness, lightheadedness. Lipase was slightly elevated to [address] abdomen concerning for acute pancreatitis. Interval History: 01/23-patient reports he had a rough morning, still having abdominal pain. Wants to try Ensure. Adult diet Full liquid 24HR INTAKE/OUTPUT: Intake/Output Summary (Last 24 hours) at 01/24/2024 1121 Last data filed at 01/24/2024 0606 Gross per 24 hour Intake 2092.08 ml Output -- Net 2092.08 ml Past Medical History: Past Medical History: Diagnosis Date Alcohol withdrawal syndrome without complication (HCC) 06/27/2022 Alcohol withdrawal with inpatient treatment, uncomplicated (HCC) 03/15/2022 GERD (gastroesophageal reflux disease) History of pancreatitis 01/07/2023 Hypertension Pancreatitis Seizures (HCC) SVT (supraventricular tachycardia) (HCC) Tourette syndrome LABS: CBC: No results for input(s): WBC, RBC, HGB, HCT, MCV, RDW, PLT in the last 72 hours. BMP: No results for input(s): NA, K, CL, CO2, BUN, CREATININE, GLUCOSE, CALCIUM, ANIONGAP in the last 72 hours. LIVER PROFILE: No results for input(s): AST, ALT, BILITOT, ALKPHOS, PROT in the last 72 hours. No lab exists for component: LABALBU PT/INR: No results for input(s): PROTIME, INR in the last 72 hours. CARDIAC ENZYMES: No results for input(s): TROPONINI in the last 72 hours. Procalcitonin: No results found for: PROCAL COVID-19 PCR: No results for input(s): COVID19 in the last 72 hours. Objective: Vitals: BP 132/85 Pulse 65 Temp 36.6 C (97.8 F) (Temporal) Resp 16 SpO2 96% Pulse Ox: SpO2 Av.8 % Min: 96 % Max: 99 % Supplemental O2: GENERAL: Lying in bed uncomfortably, awake and alert HEENT: normocephalic, non-traumatic, MMM NECK: supple, trachea midline HEART: RRR, normal S1 and S2 LUNGS: good breath sounds bilaterally, no wheeze, no rhonchi, no rales ABD: soft, epigastric tender, no rebound, no guarding, +BS MSK: no edema noted SKIN: warm, dry PSYCH: appropriate affect Medications: Scheduled PRN enoxaparin, 40 mg, SubCUTAneous, Daily folic acid, 1 mg, Oral, Daily influenza, 0.5 mL, IntraMUSCular, Once influenza, 0.5 mL, IntraMUSCular, Once metoprolol succinate XL, 50 mg, Oral, Daily pantoprazole, 40 mg, Oral, BID AC risperiDONE, 0.5 mg, Oral, Nightly thiamine, 100 mg, Oral, Daily venlafaxine XR, 75 mg, Oral, Daily with breakfast PRN medications: acetaminophen OR acetaminophen, hydrALAZINE, LORazepam OR LORazepam ORLORazepam OR LORazepam OR LORazepam OR LORazepam OR LORazepam OR LORazepam, morphine sulfate, naloxone, ondansetron ODT OR ondansetron, oxyCODONE OR oxyCODONE, polyethylene glycol (PEG) 3350 Continuous sodium chloride, 125 mL/hr, Last Rate: 125 mL/hr (01/24/24 0759) Assessment Data: Acute, acute on chronic, unstable/uncontrolled chronic problems: Acute pancreatitis Alcohol abuse Abnormal LFTs Stable chronic problems affecting care, new non-acute diagnoses: Hypertension GERD-history of esophagitis Depression Plan As a result of the above findings & factors, the following mgmt was pursued: - cont meds as ordered - PO oxy first line, IV morphine for breakthrough only - ADM signed off - advance diet as tolerated-wants to try Ensure, will order. - am labs, replace lytes prn - PT/OT/CM/SW - delirium precautions: increase activity and limit nighttime disturbances - DVT prophylaxis: enoxaparin and encourage ambulation Advance Directive: Full Code Anticipated Discharge - Date - 1-2 days - Location - Home - Pending the following - tolerating diet without pain 28 minutes spent in chart review, lab and radiology interpretation, patient eval, counseling and treatment plan. Toxic drug monitoring/narrow therapeutic index drug monitoring : # Drug name : lovenox # Route administered : SQ # Method of monitoring : monitor for bleeding Extended Emergency Contact Information Primary Emergency Contact: Summer Valdviia Mobile Relation: Mother William Sparks MD Division of Hospitalist Medicine [facility] * Christo Fagan DO - 01/23/2024 1:36 PM EST Hospitalist Progress Note 01/23/2024 Subjective: Admit Date: 01/20/2024 PCP: Tam Hughes DO Room#: [id number] A BRIEF HOSPITAL COURSE: Roro is a 38 y.o. male with history of alcohol abuse, prior history of pancreatitis, hypertension who comes into the hospital with complaints of abdominal pain which started couple of days ago. Patient apparently stopped drinking for the past couple of weeks but had relapsed and started drinking aga in heavily over the past 4 days. He notices worsening abdominal pain today. Has some nausea and vomiting, denies any hematemesis. Denies any dizziness, lightheadedness. Lipase was slightly elevated to [address] abdomen concerning for acute pancreatitis. Interval History: 01/22: Pt seen and examined. Was advancing diet yesterday but states he had soup and it immediatelymade his abdominal pain worse so he is sticking to water today. States no vomiting and states IV morphine wearing off too quickly. Added oxycodone and changed morphine to breakthrough pain only Adult diet Full liquid 24HR INTAKE/OUTPUT: Intake/Output Summary (Last 24 hours) at 01/23/2024 1336 Last data filed at 01/23/2024 0700 Gross per 24 hour Intake 1075 ml Output -- Net 1075 ml Past Medical History: Past Medical History: Diagnosis Date Alcohol withdrawal syndrome without complication (HCC) 06/27/2022 Alcohol withdrawal with inpatient treatment, uncomplicated (HCC) 03/15/2022 GERD (gastroesophageal reflux disease) History of pancreatitis 01/07/2023 Hypertension Pancreatitis Seizures (HCC) SVT (supraventricular tachycardia) ([facility]) Tourette syndrome LABS: CBC: Recent Labs 01/21/24135 WBC 9.3 RBC 4.84 HGB 14.5 HCT 44.1 MCV 91.1 RDW 13.8 PLT 249 BMP: Recent Labs 01/21/24135 NA 140 K 3.8 CL 106 CO2 23 BUN 4* CREATININE 0.74 GLUCOSE 115* CALCIUM 9.0 ANIONGAP 11 LIVER PROFILE: Recent Labs 01/21/24135 AST 163* ALT 157* BILITOT 0.9 ALKPHOS 193* PROT 7.9 PT/INR: Recent Labs 01/21/24135 PROTIME 12.4* INR 1.1 CARDIAC ENZYMES: No results for input(s): TROPONINI in the last 72 hours. Procalcitonin: No results found for: PROCAL COVID-19 PCR: No results for input(s): COVID19 in the last 72 hours. Objective: Vitals: BP (!) 155/109 (BP Location: Left arm, Patient Position: Sitting) Pulse 79 Temp 36.6 C (97.8 F) (Temporal) Resp 16 SpO2 97% Pulse Ox: SpO2 Av.7 % Min: 94 % Max: 98 % Supplemental O2: GENERAL: Lying in bed uncomfortably, awake and alert HEENT: normocephalic, non-traumatic, MMM NECK: supple, trachea midline HEART: RRR, normal S1 and S2 LUNGS: good breath sounds bilaterally, no wheeze, no rhonchi, no rales ABD: soft, epigastric tender, no rebound, no guarding, +BS MSK: no edema noted SKIN: warm, dry PSYCH: appropriate affect Medications: Scheduled PRN enoxaparin, 40 mg, SubCUTAneous, Daily folic acid, 1 mg, Oral, Daily influenza, 0.5 mL, IntraMUSCular, Once influenza, 0.5 mL, IntraMUSCular, Once metoprolol succinate XL, 50 mg, Oral, Daily pantoprazole, 40 mg, Oral, BID AC risperiDONE, 0.5 mg, Oral, Nightly thiamine, 100 mg, Oral, Daily venlafaxine XR, 75 mg, Oral, Daily with breakfast PRN medications: acetaminophen OR acetaminophen, hydrALAZINE, LORazepam OR LORazepam ORLORazepam OR LORazepam OR LORazepam OR LORazepam OR LORazepam OR LORazepam, morphine sulfate, naloxone, ondansetron ODT OR ondansetron, oxyCODONE OR oxyCODONE, polyethylene glycol (PEG) 3350 Continuous sodium chloride, 125 mL/hr, Last Rate: 125 mL/hr (01/23/24 1138) Assessment Data: Acute, acute on chronic, unstable/uncontrolled chronic problems: Acute pancreatitis Alcohol abuse Abnormal LFTs Stable chronic problems affecting care, new non-acute diagnoses: Hypertension GERD-history of esophagitis Depression Plan As a result of the above findings & factors, the following mgmt was pursued: - cont meds as ordered - PO oxy first line, IV morphine for breakthrough only - ADM signed off - advance diet when no longer having pain - am labs, replace lytes prn - PT/OT/CM/SW - delirium precautions: increase activity and limit nighttime disturbances - DVT prophylaxis: enoxaparin and encourage ambulation Advance Directive: Full Code Anticipated Discharge - Date - 1-2 days - Location - Home - Pending the following - tolerating diet without pain 35 minutes spent in chart review, lab and radiology interpretation, patient eval, counseling and treatment plan. Toxic drug monitoring/narrow therapeutic index drug monitoring : # Drug name : lovenox # Route administered : SQ # Method of monitoring : monitor for bleeding Extended Emergency Contact Information Primary Emergency Contact: Summer Valdivia Mobile Relation: Mother Christomaricruz Todd DO [place] Division of Hospitalist Medicine [facility] * Nikky Escobar MD - 01/22/2024 1:42 PM EST Images from the original note were not included. ADDICTION MEDICINE PROGRESS NOTE Patient: Roro Valdivia __ Problem List: Principal Problem: Alcohol-induced acute pancreatitis, unspecified complication status SUBJECTIVE Chief Complaint Patient presents with Abdominal Pain Pt c/o abdominal pain and N/V for approx 2days. Interim History Doing well, last drink ~6 days ago Reports WD sx have been mild and largely resolved today Amenable to following up with me in clinic to discuss further recovery planning Review of Systems Review of Systems Constitutional: Negative for chills, diaphoresis, malaise/fatigue and night sweats. Eyes: Negative for visual disturbance. Cardiovascular: Negative for chest pain. Musculoskeletal: Negative for falls. Gastrointestinal: Negative for abdominal pain, nausea and vomiting. Neurological: Negative for headaches, light-headedness and tremors. Psychiatric/Behavioral: Negative for depression, hallucinations and suicidal ideas. The patient is not nervous/anxious. OBJECTIVE Vitals Vitals: 01/22/24 0910 01/22/24 1124 01/22/24 1147 01/22/24 1303 BP: (!) 167/92 150/94 (!) 164/99 BP Location: Left arm Left arm Left arm Patient Position: Sitting Sitting Sitting Pulse: 69 61 61 76 Resp: 19 19 20 Temp: 36.9 C (98.5 F) 36.4 C (97.6 F) 36.6 C (97.8 F) TempSrc: Temporal Temporal Temporal SpO2: 98% 94% 96% Physical Exam Constitutional: Appearance: Normal appearance. HENT: Mouth/Throat: Mouth: Mucous membranes are moist. Eyes: Extraocular Movements: Extraocular movements intact. Cardiovascular: Rate and Rhythm: Normal rate. Pulmonary: Effort: Pulmonary effort is normal. Musculoskeletal: General: Normal range of motion. Cervical back: Normal range of motion. Skin: General: Skin is warm. Neurological: General: No focal deficit present. Mental Status: He is alert and oriented to person, place, and time. Medications Home Meds Current Outpatient Medications Medication Instructions cloNIDine (CATAPRES) 0.1 mg, 2 times daily metoprolol succinate XL (TOPROL-XL) 50 mg, Oral, Daily, Do not crush or chew. pantoprazole (PROTONIX) 40 mg, Oral, 2 times daily before meals, Do not crush, chew, or split. risperiDONE (RISPERDAL) 0.5 mg, Oral, Nightly venlafaxine XR (EFFEXOR XR) 75 mg, Oral, Daily with breakfast, Do not crush or chew. Scheduled Inpatient Meds enoxaparin, 40 mg, SubCUTAneous, Daily folic acid, 1 mg, Oral, Daily influenza, 0.5 mL, IntraMUSCular, Once influenza, 0.5 mL, IntraMUSCular, Once metoprolol succinate XL, 50 mg, Oral, Daily pantoprazole, 40 mg, Oral, BID AC risperiDONE, 0.5 mg, Oral, Nightly thiamine, 100 mg, Oral, Daily venlafaxine XR, 75 mg, Oral, Daily with breakfast PRN Inpatient Meds PRN medications: acetaminophen OR acetaminophen, hydrALAZINE, LORazepam OR LORazepam ORLORazepam OR LORazepam OR LORazepam OR LORazepam OR LORazepam OR LORazepam, morphine sulfate, naloxone, ondansetron ODT OR ondansetron, polyethylene glycol (PEG) 3350 Continuous Inpatient Infusions sodium chloride, 50 mL/hr, Last Rate: 50 mL/hr (01/22/24 0851) Recent Imaging CT abdomen pelvis w contrast Result Date: 01/20/2024 Patient Name: RORO VALDIVIA : 1985 Date/Time: 01/20/2024 14:32 Procedure: CT ABDOMEN PELVIS W CONTRAST Ordering Provider: CARBALLO JACOB Reason For Exam: Abdominal pain, acute, nonlocalized CT ABDOMEN AND PELVIS CLINICAL INDICATION: Abdominal pain, acute, nonlocalized TECHNIQUE: CT scan of the abdomen and pelvis with IV contrast. Multiplanar reformations. Dose reduction was employed with automated exposure control. COMPARISON: 11/22/2023 FINDINGS: Lung bases are clear. No free intraperitoneal gas seen. Diffuse hepatic steatosis noted. No significant focal hepatic lesion seen. Gallbladder and biliary tree appear unremarkable. Spleen shows no significant abnormality. Adrenal glands show no significant abnormality. Kidneys show no significant abnormality. Extensive peripancreatic inflammatory changes and some ill-defined fluid. No pseudocyst identified. Splenic vein appears patent. Portal vein appears patent. No pancreatic mass seen. Normal pancreatic enhancement. Abdominal aorta is nonaneurysmal. Status post appendectomy. Mild diffuse bladder wall thickening may be related to under distention. No bowel obstruction. 1. Acute pancreatitis. 2. Bladder wall mildly diffusely thickened which may relate to under distention. Correlate with urinalysis. 3. Diffuse hepatic steatosis. Report Dictated on Electronically Signed By: Steve Medellin MD Electronically Signed Date/Time: 01/20/2024 2:50PM EST Labs CBC: Recent Labs 01/20/24 1304 01/21/24 0136 WBC 8.2 9.3 HGB 15.9 14.5 PLT 323 249 MCV 90.2 91.1 RDW 13.9 13.8 BMP: Recent Labs 01/20/24 1304 01/21/24 0136 NA 143 140 K 4.5 3.8 CL 103 106 CO2 27 23 BUN 4* 4* CREATININE 0.84 0.74 CALCIUM 9.5 9.0 Liver Profile: Recent Labs 01/20/24 1304 01/21/24 0136 AST 235* 163* ALT 206* 157* BILITOT 0.6 0.9 ALKPHOS 209* 193* PROT 8.7* 7.9 LIPASE 273* -- INR -- 1.1 Glucose: Recent Labs 01/20/24 1304 01/21/24 0136 GLUCOSE 136* 115* Lactic Acid: No lab exists for component: LACTA Cardiac Injury Profile: No results for input(s): CKTOTAL, CKMB, TROPONINI in the last 72 hours. Last 24 Hours: No results found for this or any previous visit (from the past 24 hours). ASSESSMENT & PLAN Alcohol use disorder Counseled patient on biopsychosocial consequences of substance use. Encouraged professional chemical dependency treatment. Encouraged 12 step meeting attendance. Follow up plan for addiction management discussed with patient: Can follow up with me in office. Alcohol withdrawal Last use of alcohol was >5 days ago. Had been on Ativan per [place] to manage alcohol withdrawal symptoms. Detox is complete, can discontinue ^ Will sign off. This patient was staffed with Dr. Ramsey. Nikky Escobar MD electronically signed this at 1:45 PM Cosigned by Stone Ramsey MD at 01/26/2024 1:19 PM EST Associated attestation - Stone Ramsey MD - 01/26/2024 1:19 PM EST Patient seen and examined by me on 01/22/2024. Discussed patient with the resident/fellow/KOBY. Agree with assessment and plan as written. I provided discussion regarding this patient's condition ,chemical dependency, psychiatric and medical history, symptoms and signs , reviewing past detoxification hospitalizations, assessing withdrawal status, evaluating detoxification medications, and discussing lab work and treatment plan ,importance of compliance with the treatment with providing options, as well as documenting on the day of the visit. Stone Ramsey MD 01/26/24 1:19 PM * Seema Lizama - 01/22/2024 1:16 PM EST Nutrition rescreen completed. Chart reviewed. Patient to be monitored and followed by the diet copier field service technician. Dietitian available upon request. RALPH Chun * William Sparks MD - 01/22/2024 8:51 AM EST Hospitalist Progress Note 01/22/2024 Subjective: Admit Date: 01/20/2024 PCP: Tam Hughes DO Room#: [id number] A BRIEF HOSPITAL COURSE: Roro is a 38 y.o. male with history of alcohol abuse, prior history of pancreatitis, hypertension who comes into the hospital with complaints of abdominal pain which started couple of days ago. Patient apparently stopped drinking for the past couple of weeks but had relapsed and started drinking aga in heavily over the past 4 days. He notices worsening abdominal pain today. Has some nausea and vomiting, denies any hematemesis. Denies any dizziness, lightheadedness. Lipase was slightly elevated to [address] abdomen concerning for acute pancreatitis. Interval History: 01/20- abd pain still present, cannot keep water down. No withdrawals at present 01/21-patient feels a bit better today, abdominal pain less, will start clear liquid diet. NPO diet with enteral medications 24HR INTAKE/OUTPUT: Intake/Output Summary (Last 24 hours) at 01/22/2024 0851 Last data filed at 01/21/20242040 Gross per 24 hour Intake 100 ml Output -- Net 100 ml Past Medical History: Past Medical History: Diagnosis Date Alcohol withdrawal syndrome without complication (HCC) 06/27/2022 Alcohol withdrawal with inpatient treatment, uncomplicated (HCC) 03/15/2022 GERD (gastroesophageal reflux disease) History of pancreatitis 01/07/2023 Hypertension Pancreatitis Seizures (HCC) SVT (supraventricular tachycardia) (HCC) Tourette syndrome LABS: CBC: Recent Labs 01/20/24 1304 01/21/24 0136 WBC 8.2 9.3 RBC 5.32 4.84 HGB 15.9 14.5 HCT 48.0 44.1 MCV 90.2 91.1 RDW 13.9 13.8 PLT 323 249 BMP: Recent Labs 01/20/24 1304 01/21/24 0136 NA 143 140 K 4.5 3.8 CL 103 106 CO2 27 23 BUN 4* 4* CREATININE 0.84 0.74 GLUCOSE 136* 115* CALCIUM 9.5 9.0 ANIONGAP 13 11 LIVER PROFILE: Recent Labs 01/20/24 1304 01/21/24 0136 AST 235* 163* ALT 206* 157* BILITOT 0.6 0.9 ALKPHOS 209* 193* PROT 8.7* 7.9 PT/INR: Recent Labs 01/21/24 0136 PROTIME 12.4* INR 1.1 CARDIAC ENZYMES: No results for input(s): TROPONINI in the last 72 hours. Procalcitonin: No results found for: PROCAL COVID-19 PCR: No results for input(s): COVID19 in the last 72 hours. Objective: Vitals: BP 135/94 (BP Location: Right arm, Patient Position: Lying) Pulse 71 Temp 36.8 C (98.3 F) (Temporal) Resp 16 SpO2 98% Pulse Ox: SpO2 Av.8 % Min: 95 % Max: 98 % Supplemental O2: Physical Exam Constitutional: Appearance: He is not toxic-appearing or diaphoretic. Cardiovascular: Rate and Rhythm: Normal rate and regular rhythm. Pulmonary: Effort: No respiratory distress. Breath sounds: Normal breath sounds. No wheezing. Abdominal: General: There is no distension. Palpations: Abdomen is soft. Neurological: Mental Status: He is alert. Medications: Scheduled PRN enoxaparin, 40 mg, SubCUTAneous, Daily folic acid, 1 mg, Oral, Daily influenza, 0.5 mL, IntraMUSCular, Once influenza, 0.5 mL, IntraMUSCular, Once metoprolol succinate XL, 50 mg, Oral, Daily pantoprazole, 40 mg, Oral, BID AC risperiDONE, 0.5 mg, Oral, Nightly thiamine, 100 mg, Oral, Daily venlafaxine XR, 75 mg, Oral, Daily with breakfast PRN medications: acetaminophen OR acetaminophen, hydrALAZINE, LORazepam OR LORazepam ORLORazepam OR LORazepam OR LORazepam OR LORazepam OR LORazepam OR LORazepam, morphine sulfate, naloxone, ondansetron ODT OR ondansetron, polyethylene glycol (PEG) 3350 Continuous sodium chloride, 100 mL/hr, Last Rate: 100 mL/hr (01/21/24 1337) Assessment Acute, acute on chronic, unstable/uncontrolled chronic problems: Acute pancreatitis Alcohol abuse Abnormal LFTs Stable chronic problems affecting care, new non-acute diagnoses: Hypertension GERD-history of esophagitis Depression Plan As a result of the above findings & factors, the following mgmt was pursued: -Patient was admitted to the hospital for further treatment of acute pancreatitis. -Patient was made n.p.o., placed on IV pain medications as needed, IV fluids. Maintain NPO as sx still not controlled. Will progress to Clear liquid diet today -Patient has an alcohol abuse history, had a CIWA overnight in the 20s, with received 1 dose of Ativan. Concern for alcohol withdrawals. Will consult addiction medicine. Continue thiamine and folate,continue as needed Ativan for now per CIWA scale -Patient has mild elevated liver function test likely related to hepatic steatosis and alcoholic hepatitis. Recommend alcohol cessation. -Continue Effexor and risperidone for mood disorder not otherwise specified. - labs stable, replace lytes prn - delirium precautions: increase activity and limit nighttime disturbances - DVT prophylaxis: enoxaparin Advance Directive: Full Code Anticipated Discharge - Date -1 to 3 days - Location - Home - Pending the following -stabilization Extended Emergency Contact Information Primary Emergency Contact: Summer Valdivia Mobile Relation: Mother William Sparks MD Division of Hospitalist Medicine [facility] * William Sparks MD - 01/21/2024 8:19 AM EST Hospitalist Progress Note 01/21/2024 Subjective: Admit Date: 01/20/2024 PCP: Tam Hughes DO Room#: [id number] A BRIEF HOSPITAL COURSE: Roro is a 38 y.o. male with history of alcohol abuse, prior history of pancreatitis, hypertension who comes into the hospital with complaints of abdominal pain which started couple of days ago. Patient apparently stopped drinking for the past couple of weeks but had relapsed and started drinking aga in heavily over the past 4 days. He notices worsening abdominal pain today. Has some nausea and vomiting, denies any hematemesis. Denies any dizziness, lightheadedness. Lipase was slightly elevated to [address] abdomen concerning for acute pancreatitis. Interval History: 01/20- abd pain still present, cannot keep water down. No withdrawals at present NPO diet with enteral medications 24HR INTAKE/OUTPUT: No intake or output data in the 24 hours ending 01/21/24 0820 Past Medical History: Past Medical History: Diagnosis Date Alcohol withdrawal syndrome without complication (HCC) 06/27/2022 Alcohol withdrawal with inpatient treatment, uncomplicated (HCC) 03/15/2022 GERD (gastroesophageal reflux disease) History of pancreatitis 01/07/2023 Hypertension Pancreatitis Seizures (HCC) SVT (supraventricular tachycardia) (HCC) Tourette syndrome LABS: CBC: Recent Labs 01/20/24 1304 01/21/24 0136 WBC 8.2 9.3 RBC 5.32 4.84 HGB 15.9 14.5 HCT 48.0 44.1 MCV 90.2 91.1 RDW 13.9 13.8 PLT 323 249 BMP: Recent Labs 01/20/24 1304 01/21/24 0136 NA 143 140 K 4.5 3.8 CL 103 106 CO2 27 23 BUN 4* 4* CREATININE 0.84 0.74 GLUCOSE 136* 115* CALCIUM 9.5 9.0 ANIONGAP 13 11 LIVER PROFILE: Recent Labs 01/20/24 1304 01/21/24 0136 AST 235* 163* ALT 206* 157* BILITOT 0.6 0.9 ALKPHOS 209* 193* PROT 8.7* 7.9 PT/INR: Recent Labs 01/21/24 0136 PROTIME 12.4* INR 1.1 CARDIAC ENZYMES: No results for input(s): TROPONINI in the last 72 hours. Procalcitonin: No results found for: PROCAL COVID-19 PCR: No results for input(s): COVID19 in the last 72 hours. Objective: Vitals: BP (!) 162/98 (BP Location: Right arm, Patient Position: Lying) Pulse 72 Temp 36.1 C (97 F) (Temporal) Resp 18 SpO2 95% Pulse Ox: SpO2 Av.4 % Min: 95 % Max: 98 % Supplemental O2: Physical Exam Constitutional: Appearance: He is not toxic-appearing or diaphoretic. Cardiovascular: Rate and Rhythm: Normal rate and regular rhythm. Pulmonary: Effort: No respiratory distress. Breath sounds: Normal breath sounds. No wheezing. Abdominal: General: There is no distension. Palpations: Abdomen is soft. Skin: General: Skin is warm. Findings: No rash. Neurological: Mental Status: He is alert. Medications: Scheduled PRN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 01/21/2024 3:57 AM EST Problem: Pain - Adult Goal: Verbalizes/displays adequate comfort level or baseline comfort level Outcome: Progressing Problem: Safety - Adult Goal: Free from fall injury Outcome: Progressing Problem: Discharge Planning Goal: Discharge to home or other facility with appropriate resources Outcome: Progressing [id number] Nurse Note* Cherelle Santillan RN - 01/21/2024 1:30 AM EST Pt. On unit. BP remains elevated at 160/114. MD made aware and are okay with BP at present time. [facility] [id number] Emergency department Note* Blank Sharif RN - 01/20/2024 11:26 PM EST Pt c/o 7/10 abdominal pain. Last dose of morphine 3 hours, ordered q4 hours. Messaged provider for orders. No new orders placed by provider. at11:34 PM [id number] Emergency department Note* Blank Sharif RN - 01/20/2024 11:26 PM EST Pt c/o 7/10 abdominal pain. Last dose of morphine 3 hours, ordered q4 hours. Messaged provider for orders. No new orders placed by provider. at11:34 PM * Blank Sharif RN - 01/20/2024 9:49 PM EST Notified by ED charge that a CIWA over 20 triggers an ICU consult. Spoke with her that pt hadn't been medicated for CIWA at all and that it was his first dose of ativan. Upon reassessment CIWA was 3.Spoke with Dr. Rachelle Luo about this, who said appropriate for current placement, thx. UpdatedED charge on this. * Blank Sharif RN - 01/20/2024 9:15 PM EST Pt ambulated to bathroom independently with IV pole with a steady gait. Back to bed with no distress with exertion. Chest rise equal, axo x4. No needs expressed at this time. * Savanna Carvalho RN - 01/20/2024 3:46 PM EST Pt medicated per oder * Kev Carballo PA-C - 01/20/2024 11:28 AM EST Emergency Department Encounter [facility] EMERGENCY DEPT Patient: Roro Valdivia : 1985 Date of Evaluation: 01/20/2024 ED KOYB Provider: Kev Carballo PA-C EDcare was supervised by Dr. Stephens who independently examined and evaluated the patient. Please see their attestation note for further details. Chief Complaint Chief Complaint Patient presents with Abdominal Pain Pt c/o abdominal pain and N/V for approx 2days. JIMENEZ Mercado was wearing a N95, Surgical mask for the entirety of this encounter. Roro Valdivia is a 38 y.o. male who presents to the emergency department for nausea, vomiting andabdominal pain. Patient has a history of pancreatitis and said pain feels similar. Patient said he was sober but started drinking a few days ago. Abdominal pain is epigastric. Patient unable to keep anything down. No diarrhea. Limitations to history: None Outside historians: EMR Past History Past Medical History: Diagnosis Date Alcohol withdrawal syndrome without complication (HCC) 06/27/2022 Alcohol withdrawal with inpatient treatment, uncomplicated (HCC) 03/15/2022 GERD (gastroesophageal reflux disease) History of pancreatitis 01/07/2023 Hypertension Pancreatitis Seizures (HCC) SVT (supraventricular tachycardia) (HCC) Tourette syndrome Past Surgical History: Procedure Laterality Date APPENDECTOMY Social History Socioeconomic History Marital status: Single Tobacco Use Smoking status: Every Day Current packs/day: 1.00 Types: Cigarettes Smokeless tobacco: Never Vaping Use Vaping status: Never Used Substance and Sexual Activity Alcohol use: Yes Comment: 2/5 vodka daily Drug use: Not Currently Types: Cocaine, Methamphetamines, Oxycodone, Fentanyl, Heroin, Benzodiazepines Sexual activity: Not Currently Social Drivers of Health Financial Resource Strain: Medium Risk (12/14/2023) Overall Financial Resource Strain (CARDIA) Difficulty of Paying Living Expenses: Somewhat hard Food Insecurity: No Food Insecurity (12/16/2023) Hunger Vital Sign Worried About Running Out of Food in the Last Year: Never true Ran Out of Food in the Last Year: Never true Recent Concern: Food Insecurity - Food Insecurity Present (10/16/2023) Hunger Vital Sign Worried About Running Out of Food in the Last Year: Often true Ran Out of Food in the Last Year: Often true Transportation Needs: Unmet Transportation Needs (12/16/2023) PRAPARE - Transportation Lack of Transportation (Medical): Yes Lack of Transportation (Non-Medical): Yes Physical Activity: Inactive (12/14/2023) Exercise Vital Sign Days of Exercise per Week: 0 days Minutes of Exercise per Session: 0 min Stress: Stress Concern Present (12/14/2023) [employer] - Occupational Stress Questionnaire Feeling of Stress : Very much Social Connections: Socially Isolated (12/14/2023) Social Connection and Isolation Panel [NHANES] Frequency of Communication with Friends and Family: Once a week Frequency of Social Gatherings with Friends and Family: More than three times a week Attends [employer] Services: Never Active Member of Clubs or Organizations: No Attends Club or Organization Meetings: Never Marital Status: Never Intimate Partner Violence: Not At Risk (12/16/2023) Humiliation, Afraid, Rape, and Kick questionnaire Fear of Current or Ex-Partner: No Emotionally Abused: No Physically Abused: No Sexually Abused: No Housing Stability: High Risk (12/16/2023) Housing Stability Vital Sign Unable to Pay for Housing in the Last Year: Patient declined Homeless in the Last Year: Yes Medications/Allergies Previous Medications METOPROLOL SUCCINATE XL (TOPROL-XL) 50 MG 24 HR TABLET Take 1 tablet (50 mg) by mouth daily. Do notcrush or chew. PANTOPRAZOLE (PROTONIX) 40 MG EC TABLET Take 1 tablet (40 mg) by mouth 2 times daily (before meals). Do not crush, chew, or split. RISPERIDONE (RISPERDAL) 0.5 MG TABLET Take 1 tablet (0.5 mg) by mouth Nightly. VENLAFAXINE XR (EFFEXOR XR) 75 MG 24 HR CAPSULE Take 1 capsule (75 mg) by mouth daily (with breakfast). Do not crush or chew. Do not start before December 18, 2023. No Known Allergies Physical Exam BP (!) 160/107 Pulse 95 Temp 36.9 C (98.4 F) (Temporal) Resp 16 SpO2 97% Physical Exam GENERAL APPEARANCE: Awake and alert. Cooperative. HEENT: Normocephalic. Atraumatic. Sclera anicteric. Tolerates saliva. No trismus. NECK: Supple. Trachea midline. CARDIO: Normal rate. Radial pulses symmetrical and palpable LUNGS: Respirations unlabored. CTAB. ABDOMEN: Soft. Nondistended. Epigastric abdominal tenderness to palpation. No guarding. MUSCULOSKELETAL: No acute deformities. SKIN: Warm and dry. NEUROLOGICAL: No gross facial drooping. No obvious neurologic deficits. Control Clerk strength symmetrical. Moves all 4 extremities spontaneously. SCREENINGS D Labs: Results for orders placed or performed during the hospital encounter of 01/20/24 CBC auto differential Collection Time: 01/20/24 1:04 PM Result Value Ref Range Auto WBC 8.2 3.6 - 10.7 10*3/uL RBC 5.32 4.40 - 5.90 10*6/uL Hemoglobin 15.9 13.0 - 18.0 g/dL Hematocrit 48.0 40.0 - 52.0 % MCV 90.2 77.0 - 99.0 fL MCH 29.9 26.0 - 34.0 pg MCHC 33.1 30.5 - 36.0 % RDW 13.9 11.5 - 15.0 % Platelets 323 140 - 440 10*3/uL MPV 9.7 9.0 - 12.7 fL nRBC 0.0 0.0 - 2.0 /100 WBCs Neutrophils Relative 46.8 38.0 - 82.0 % Lymphocytes Relative 45.8 (H) 15.0 - 45.0 % Monocytes Relative 6.1 5.0 - 13.0 % Eosinophils Relative 0.4 0.0 - 6.0 % Basophils Relative 0.7 0.0 - 2.0 % Immature Grans % 0.2 0.0 - 2.0 % Neutrophils Absolute 3.8 1.8 - 7.5 10*3/uL Lymphocytes Absolute 3.7 1.0 - 4.3 10*3/uL Monocytes Absolute 0.5 0.0 - 0.9 10*3/uL Eosinophils Absolute 0.0 0.0 - 0.5 10*3/uL Basophils Absolute 0.1 0.0 - 0.2 10*3/uL Immature Grans Absolute 0.0 <0.1 10*3/uL Comprehensive metabolic panel Collection Time: 01/20/24 1:04 PM Result Value Ref Range SODIUM 143 136 - 145 mmol/L POTASSIUM 4.5 3.5 - 5.1 mmol/L CHLORIDE 103 98 - 107 mmol/L CARBON DIOXIDE 27 22 - 29 mmol/L ANION GAP 13 3 - 13 mmol/L UREA NITROGEN 4 (L) 8 - 21 mg/dL CREATININE 0.84 0.72 - 1.25 mg/dL GLUCOSE 136 (H) 74 - 100 mg/dL CALCIUM 9.5 8.4 - 10.2 mg/dL AST (SGOT) 235 (H) <34 U/L ALT 206 (H) <40 U/L ALKALINE PHOSPHATASE 209 (H) 40 - 150 U/L ALBUMIN 4.3 3.5 - 5.0 g/dL BILIRUBIN, TOTAL 0.6 <1.2 mg/dL TOTAL PROTEIN 8.7 (H) 6.4 - 8.3 g/dL eGFR >90.0 >60.0 mL/min/1.73m*2 Lipase Collection Time: 01/20/24 1:04 PM Result Value Ref Range LIPASE 273 (H) <55 U/L Complete Urinalysis Collection Time: 01/20/24 1:11 PM Result Value Ref Range Color, Urine Yellow Lt. Yellow Clarity, Urine Slightly Cloudy (A) Clear pH, Urine 5.5 5.0 - 8.0 pH Leukocytes, Urine Negative Negative Teofilo/uL Nitrite, Urine Negative Negative Protein, Urine 50 (A) Negative mg/dL Glucose, Urine 30 Normal (<70) mg/dL Bilirubin, Urine Negative Negative mg/dL Ketones, Urine Trace (A) Negative mg/dL Urobilinogen, Urine 3 (A) Normal (0-1) mg/dL Blood, Urine Negative Negative mg/dL RBC, Urine 0-2 0 - 2 /HPF WBC, Urine 3-5 0 - 5 /HPF Squamous Epithelial, Urine 0-2 3 - 5 /HPF Bacteria, Urine Moderate (A) Negative /HPF Mucus, Urine Many (A) Negative /LPF Hyaline Casts, Urine 11-25 (A) Negative /LPF SPECIFIC GRAVITY OF URINE (NUMERIC) 1.019 1.005 - 1.030 Radiographs: CT abdomen pelvis w contrast Final Result 1. Acute pancreatitis. 2. Bladder wall mildly diffusely thickened which may relate to under distention. Correlate with urinalysis. 3. Diffuse hepatic steatosis. Report Dictated on Electronically Signed By: Steve Medellin MD Electronically Signed Date/Time: 01/20/2024 2:50 PM EST : EKG: All EKG's areinterpreted by the Emergency Department Physician in the absence of a production control planner. see their note for interpretation of EKG. EMERGENCY DEPARTMENT COURSE and DIFFERENTIAL DIAGNOSIS/MDM: External Records Review: Reviewed Care Everywhere. Social Determinants of Health: Alcoholism. Roro Valdivia is a 38 y.o. male who presented to the emergency department for epigastric abdominal pain, nausea and vomiting. Patient said he has a history of pancreatitis and did start drinking a few days ago. Differential diagnosis included pancreatitis, gastritis, gastroenteritis. Pt given IV fluids, Zofran and morphine. Our workup consisted of ordering/reviewing CBC, CMP, lipase, UA and showed transaminitis. Lipase 273. CT abd/pelvis showed acute pancreatitis. Presentation consistent with acute pancreatitis. Patient will be admitted for pain control and symptomatic management given he does not feel he can go home. Patient admitted to medicine team. Final Diagnosis: 1. Alcohol-induced acute pancreatitis, unspecified complication status 2. Abdominal pain, generalized Medications sodium chloride 0.9 % bolus 1,000 mL (1,000 mL IntraVENous New Bag 01/20/24 1305) morphine injection 4 mg (4 mg IntraVENous Given 01/20/24 1314) ondansetron (Zofran) injection 4 mg (4 mg IntraVENous Given 01/20/24 1311) iopamidol (Isovue-370) 76 % injection 75 mL (75 mL IntraVENous Given 01/20/24 1439) morphine injection 4 mg (4 mg IntraVENous Given 01/20/24 1545) CONSULTS: None PROCEDURES: Unless otherwise noted below, none Procedures DISPOSITION/PLAN Admit 01/20/2024 03:43:24 PM PATIENT REFERRED TO: No follow-up provider specified. DISCHARGE MEDICATIONS: New Prescriptions No medications on file @[facility]([id number]:LAST:1)@ (Please note: Portions of this note were completed with a voice recognition program. Efforts were made to edit the dictations but occasionally words and phrases are mis-transcribed.) Form [id number] Kev Carballo PA-C Acute Care [facility] Kev Carballo PA-C 01/20/24 1547 Cosigned by Calvin Stephens MD at 01/20/2024 7:57 PM EST * Calvin Stephens MD - 01/20/2024 11:28 AM EST Emergency Department Encounter [facility] EMERGENCY DEPT Patient: Roro Valdivia : 1985 Date of Evaluation: 01/20/2024 ED Supervising Physician: Calvin Stephens MD [facility] SUPERVISORY NOTE & SHARED ENCOUNTER ATTESTATION: I independently examined and evaluated Roro Valdivia. I personally saw the patient and performed a substantive portion of the visit including all aspectsof the Medical Decision Making. I managed the patient in a supervisory role and I personally saw the patient and made/approved the management plan and take responsibility for the patient management. In brief, Roro Valdivia is a 38 y.o. male that presents to the emergency department for evaluation of abdominal pain after drinking alcohol. The patient has a history of pancreatitis he drank relatively heavy he states around 4 days or so ago and over the last 2 days been having severe epigastricpain with nausea and vomiting no GI bleeding no chest pain or shortness of breath. Focused exam: LUNGS: Breath sounds are equal, clear to auscultation, no wheeze retractions or cyanosis and no crackles present. HEART: Regular rate and rhythm no murmur or thrill or rub, strong heart tones Abdomen: Diffuse mid abdominal tenderness no lower quadrant guarding rebound mass or aneurysm Brief ED course/MDM: Labs were obtained which showed white count 8.2 hemoglobin 15.9 chemistries his electrolytes are fine his LFTs are elevated his lipase is 273. He was having ongoing pain despite IV fluids normal saline and pain medication consisting of IV morphine and antiemetics of IV Zofran therefore CT abdomen pelvis was obtained. CT abdomen pelvis IV contrast interpreted by me shows no mass abscess or obstruction but there doesappear to be acute pancreatitis. The admitting service will be consulted and patient admitted because of ongoing nausea vomiting andinability tolerate fluids All diagnostic, treatment, and disposition decisions were made by myself in conjunction with the K[facility]. For all further details of the patient's emergency department visit, please see the full medical record and documentation. (Please note that portions of this note may have been completed with a voice recognition program. Efforts were made to edit the dictations but occasionally words are mis-transcribed.) Calvin Stephens MD [employer] Calvin Stephens MD 01/20/24 1532 Calvin Stephens MD 01/20/241956 documented in this [facility]12-11-2024 Emergency department Note* Blank Sharif RN - 01/20/2024 9:49 PM EST Notified by ED charge that a CIWA over 20 triggers an ICU consult. Spoke with her that pt hadn't been medicated for CIWA at all and that it was his first dose of ativan. Upon reassessment CIWA was 3.Spoke with Dr. Rachelle Luo about this, who said appropriate for current placement, thx. UpdatedED charge on this. [id number] Emergency department Note* Blank Sharif RN - 01/20/2024 9:15 PM EST Pt ambulated to bathroom independently with IV pole with a steady gait. Back to bed with no distress with exertion. Chest rise equal, axo x4. No needs expressed at this time. [id number] Nurse Note* Blank Sharif RN - 01/20/2024 7:40 PM EST PT stating he is having a panic attack, pacing in room, c/o difficulty breathing and panic. CIWA 28on assessment, medicated per order. Pt stating relief within minutes. Bolus hung. Pt asked to return to bed, ambulated with a steady gate. Siderail up x1,no distress at this time. [facility] [id number] History and physical note* Latonya Horton MD - 01/20/2024 4:36 PM EST History and Physical Admit Date: 01/20/2024 PCP: Tam Hughes DO CHIEF COMPLAINT: Abdominal pain Reason for Admission: Acute pancreatitis History Obtained From: patient HISTORY OF PRESENT ILLNESS: Roro is a 38 y.o. male with history of alcohol abuse, prior history of pancreatitis, hypertension who comes into the hospital with complaints of abdominal pain which started couple of days ago. Patient apparently stopped drinking for the past couple of weeks but had relapsed and started drinking aga in heavily over the past 4 days. He notices worsening abdominal pain today. Has some nausea and vomiting, denies any hematemesis. Denies any dizziness, lightheadedness. Lipase was slightly elevated to [address] abdomen concerning for acute pancreatitis. Discussed management with the ED provider and agree with hospitalization. Assessment Acute, acute on chronic, unstable/uncontrolled chronic problems: Acute pancreatitis Alcohol abuse Abnormal LFTs Stable chronic problems affecting care, new non-acute diagnoses: Hypertension GERD MDM/Plan Admit patient to hospital, aggressively hydrate with IV fluids, keep n.p.o. for now. Continue to monitor closely, check labs in AM. Alcohol cessation advised, will start him on alcohol withdrawal protocol, monitor closely for Dts Monitor blood pressure closely, will add hydralazine as needed Continue PPI - am labs, replace lytes prn - PT/OT/CM/SW - delirium precautions: increase activity - DVT prophylaxis: enoxaparin and encourage ambulation Past Medical History: Past Medical History: Diagnosis Date Alcohol withdrawal syndrome without complication (HCC) 06/27/2022 Alcohol withdrawal with inpatient treatment, uncomplicated (HCC) 03/15/2022 GERD (gastroesophageal reflux disease) History of pancreatitis 01/07/2023 Hypertension Pancreatitis Seizures (HCC) SVT (supraventricular tachycardia) (HCC) Tourette syndrome Past Surgical History: Past Surgical History: Procedure Laterality Date APPENDECTOMY Social History: Social History Socioeconomic History Marital status: Single Spouse name: Not on file Number of children: Not on file Years of education: Not on file Highest education level: Not on file Occupational History Not on file Tobacco Use Smoking status: Every Day Current packs/day: 1.00 Types: Cigarettes Smokeless tobacco: Never Vaping Use Vaping status: Never Used Substance and Sexual Activity Alcohol use: Yes Comment: 2/5 vodka daily Drug use: Not Currently Types: Cocaine, Methamphetamines, Oxycodone, Fentanyl, Heroin, Benzodiazepines Sexual activity: Not Currently Other Topics Concern Not on file Social History Narrative Not on file Social Drivers of Health Financial Resource Strain: Medium Risk (12/14/2023) Overall Financial Resource Strain (CARDIA) Difficulty of Paying Living Expenses: Somewhat hard Food Insecurity: No Food Insecurity (12/16/2023) Hunger Vital Sign Worried About Running Out of Food in the Last Year: Never true Ran Out of Food in the Last Year: Never true Recent Concern: Food Insecurity - Food Insecurity Present (10/16/2023) Hunger Vital Sign Worried About Running Out of Food in the Last Year: Often true Ran Out of Food in the Last Year: Often true Transportation Needs: Unmet Transportation Needs (12/16/2023) PRAPARE - Transportation Lack of Transportation (Medical): Yes Lack of Transportation (Non-Medical): Yes Physical Activity: Inactive (12/14/2023) Exercise Vital Sign Days of Exercise per Week: 0 days Minutes of Exercise per Session: 0 min Stress: Stress Concern Present (12/14/2023) [employer] - Occupational Stress Questionnaire Feeling of Stress : Very much Social Connections: Socially Isolated (12/14/2023) Social Connection and Isolation Panel [NHANES] Frequency of Communication with Friends and Family: Once a week Frequency of Social Gatherings with Friends and Family: More than three times a week Attends [employer] Services: Never Active Member of Clubs or Organizations: No Attends Club or Organization Meetings: Never Marital Status: Never Intimate Partner Violence: Not At Risk (12/16/2023) Humiliation, Afraid, Rape, and Kick questionnaire Fear of Current or Ex-Partner: No Emotionally Abused: No Physically Abused: No Sexually Abused: No Housing Stability: High Risk (12/16/2023) Housing Stability Vital Sign Unable to Pay for Housing in the Last Year: Patient declined Number of Times Moved in the Last Year: Not on file Homeless in the Last Year: Yes Family History: Family History Problem Relation Name Age of Onset No Known Problems Mother No Known Problems Father Medications Prior to Admission: No current facility-administered medications on file prior to encounter. Current Outpatient Medications on File Prior to Encounter Medication Sig Dispense Refill [] dicyclomine (Bentyl) 20 MG tablet Take 1 tablet (20 mg) by mouth 3 times daily as needed (Abdominal pain) for up to 10 days. 20 tablet 0 [] melatonin 5 MG tablet Take 1 tablet (5 mg) by mouth Nightly. 30 tablet 0 metoprolol succinate XL (Toprol-XL) 50 MG 24 hr tablet Take 1 tablet (50 mg) by mouth daily. Do notcrush or chew. 30 tablet 1 [] ondansetron ODT (Zofran-ODT) 4 MG disintegrating tablet Take 1 tablet (4 mg) by mouth every 8 hours as needed for nausea or vomiting for up to 7 days. 15 tablet 0 pantoprazole (ProtoNix) 40 MG EC tablet Take 1 tablet (40 mg) by mouth 2 times daily (before meals). Do not crush, chew, or split. 60 tablet 0 risperiDONE (RisperDAL) 0.5 MG tablet Take 1 tablet (0.5 mg) by mouth Nightly. 30 tablet 1 venlafaxine XR (Effexor XR) 75 MG 24 hr capsule Take 1 capsule (75 mg) by mouth daily (with breakfast). Do not crush or chew. Do not start before December 18, 2023. 30 capsule 1 Allergies: No Known Allergies REVIEW OF SYSTEMS: All pertinent review of systems reviewed and documented as per HPI Vitals: BP (!) 160/107 Pulse 95 Temp 36.9 C (98.4 F) (Temporal) Resp 16 SpO2 97% Pulse Ox: SpO2 Av % Min: 95 % Max: 97 % Supplemental O2: PHYSICAL EXAM: Physical Exam Cardiovascular: Rate and Rhythm: Normal rate and regular rhythm. Pulmonary: Effort: Pulmonary effort is normal. Breath sounds: Normal breath sounds. Abdominal: Tenderness: There is abdominal tenderness. Neurological: General: No focal deficit present. Mental Status: He is oriented to person, place, and time. DATA: CBC: Recent Labs 01/20/24 1304 WBC 8.2 RBC 5.32 HGB 15.9 HCT 48.0 MCV 90.2 RDW 13.9 PLT 323 BMP: Recent Labs 01/20/24 1304 NA 143 K 4.5 CL 103 CO2 27 BUN 4* CREATININE 0.84 GLUCOSE 136* CALCIUM 9.5 ANIONGAP 13 LIVER PROFILE: Recent Labs 01/20/24 1304 AST 235* ALT 206* BILITOT 0.6 ALKPHOS 209* PROT 8.7* PT/INR: No results for input(s): PROTIME, INR in the last 72 hours. CARDIAC ENZYMES: No results for input(s): TROPONINI in the last 72 hours. Procalcitonin: No results found for: PROCAL Urine Culture: No results found for this or any previous visit. COVID-19 PCR: No results for input(s): COVID19 in the last 72 hours. -am labs, replace lytes prn -vitals per routine -home meds as ordered -see below for additional orders, further recommendations to follow Orders Placed This Encounter Procedures CT abdomen pelvis w contrast CBC auto differential Comprehensive metabolic panel Lipase Urinalysis Complete with reflex to Culture Complete Urinalysis Vital Signs Admit to inpatient Code status: Prior Please forward a copy of this H&P to the patient's PCP. Thank you. Electronically signed by Latonya Larose MD at 4:36 PM Division of Hospitalist Medicine [facility] [employer] Phone: [phone] [facility]12-11-2024 History and physical note* Latonya Horton MD - 01/20/2024 4:36 PM EST History and Physical Admit Date: 01/20/2024 PCP: Tam Hughes DO CHIEF COMPLAINT: Abdominal pain Reason for Admission: Acute pancreatitis History Obtained From: patient HISTORY OF PRESENT ILLNESS: Roro is a 38 y.o. male with history of alcohol abuse, prior history of pancreatitis, hypertension who comes into the hospital with complaints of abdominal pain which started couple of days ago. Patient apparently stopped drinking for the past couple of weeks but had relapsed and started drinking aga in heavily over the past 4 days. He notices worsening abdominal pain today. Has some nausea and vomiting, denies any hematemesis. Denies any dizziness, lightheadedness. Lipase was slightly elevated to [address] abdomen concerning for acute pancreatitis. Discussed management with the ED provider and agree with hospitalization. Assessment Acute, acute on chronic, unstable/uncontrolled chronic problems: Acute pancreatitis Alcohol abuse Abnormal LFTs Stable chronic problems affecting care, new non-acute diagnoses: Hypertension GERD MDM/Plan Admit patient to hospital, aggressively hydrate with IV fluids, keep n.p.o. for now. Continue to monitor closely, check labs in AM. Alcohol cessation advised, will start him on alcohol withdrawal protocol, monitor closely for Dts Monitor blood pressure closely, will add hydralazine as needed Continue PPI - am labs, replace lytes prn - PT/OT/CM/SW - delirium precautions: increase activity - DVT prophylaxis: enoxaparin and encourage ambulation Past Medical History: Past Medical History: Diagnosis Date Alcohol withdrawal syndrome without complication (HCC) 06/27/2022 Alcohol withdrawal with inpatient treatment, uncomplicated (HCC) 03/15/2022 GERD (gastroesophageal reflux disease) History of pancreatitis 01/07/2023 Hypertension Pancreatitis Seizures (HCC) SVT (supraventricular tachycardia) (HCC) Tourette syndrome Past Surgical History: Past Surgical History: Procedure Laterality Date APPENDECTOMY Social History: Social History Socioeconomic History Marital status: Single Spouse name: Not on file Number of children: Not on file Years of education: Not on file Highest education level: Not on file Occupational History Not on file Tobacco Use Smoking status: Every Day Current packs/day: 1.00 Types: Cigarettes Smokeless tobacco: Never Vaping Use Vaping status: Never Used Substance and Sexual Activity Alcohol use: Yes Comment: 2/5 vodka daily Drug use: Not Currently Types: Cocaine, Methamphetamines, Oxycodone, Fentanyl, Heroin, Benzodiazepines Sexual activity: Not Currently Other Topics Concern Not on file Social History Narrative Not on file Social Drivers of Health Financial Resource Strain: Medium Risk (12/14/2023) Overall Financial Resource Strain (CARDIA) Difficulty of Paying Living Expenses: Somewhat hard Food Insecurity: No Food Insecurity (12/16/2023) Hunger Vital Sign Worried About Running Out of Food in the Last Year: Never true Ran Out of Food in the Last Year: Never true Recent Concern: Food Insecurity - Food Insecurity Present (10/16/2023) Hunger Vital Sign Worried About Running Out of Food in the Last Year: Often true Ran Out of Food in the Last Year: Often true Transportation Needs: Unmet Transportation Needs (12/16/2023) PRAPARE - Transportation Lack of Transportation (Medical): Yes Lack of Transportation (Non-Medical): Yes Physical Activity: Inactive (12/14/2023) Exercise Vital Sign Days of Exercise per Week: 0 days Minutes of Exercise per Session: 0 min Stress: Stress Concern Present (12/14/2023) [employer] - Occupational Stress Questionnaire Feeling of Stress : Very much Social Connections: Socially Isolated (12/14/2023) Social Connection and Isolation Panel [NHANES] Frequency of Communication with Friends and Family: Once a week Frequency of Social Gatherings with Friends and Family: More than three times a week Attends [employer] Services: Never Active Member of Clubs or Organizations: No Attends Club or Organization Meetings: Never Marital Status: Never Intimate Partner Violence: Not At Risk (12/16/2023) Humiliation, Afraid, Rape, and Kick questionnaire Fear of Current or Ex-Partner: No Emotionally Abused: No Physically Abused: No Sexually Abused: No Housing Stability: High Risk (12/16/2023) Housing Stability Vital Sign Unable to Pay for Housing in the Last Year: Patient declined Number of Times Moved in the Last Year: Not on file Homeless in the Last Year: Yes Family History: Family History Problem Relation Name Age of Onset No Known Problems Mother No Known Problems Father Medications Prior to Admission: No current facility-administered medications on file prior to encounter. Current Outpatient Medications on File Prior to Encounter Medication Sig Dispense Refill [] dicyclomine (Bentyl) 20 MG tablet Take 1 tablet (20 mg) by mouth 3 times daily as needed (Abdominal pain) for up to 10 days. 20 tablet 0 [] melatonin 5 MG tablet Take 1 tablet (5 mg) by mouth Nightly. 30 tablet 0 metoprolol succinate XL (Toprol-XL) 50 MG 24 hr tablet Take 1 tablet (50 mg) by mouth daily. Do notcrush or chew. 30 tablet 1 [] ondansetron ODT (Zofran-ODT) 4 MG disintegrating tablet Take 1 tablet (4 mg) by mouth every 8 hours as needed for nausea or vomiting for up to 7 days. 15 tablet 0 pantoprazole (ProtoNix) 40 MG EC tablet Take 1 tablet (40 mg) by mouth 2 times daily (before meals). Do not crush, chew, or split. 60 tablet 0 risperiDONE (RisperDAL) 0.5 MG tablet Take 1 tablet (0.5 mg) by mouth Nightly. 30 tablet 1 venlafaxine XR (Effexor XR) 75 MG 24 hr capsule Take 1 capsule (75 mg) by mouth daily (with breakfast). Do not crush or chew. Do not start before December 18, 2023. 30 capsule 1 Allergies: No Known Allergies REVIEW OF SYSTEMS: All pertinent review of systems reviewed and documented as per HPI Vitals: BP (!) 160/107 Pulse 95 Temp 36.9 C (98.4 F) (Temporal) Resp 16 SpO2 97% Pulse Ox: SpO2 Av % Min: 95 % Max: 97 % Supplemental O2: PHYSICAL EXAM: Physical Exam Cardiovascular: Rate and Rhythm: Normal rate and regular rhythm. Pulmonary: Effort: Pulmonary effort is normal. Breath sounds: Normal breath sounds. Abdominal: Tenderness: There is abdominal tenderness. Neurological: General: No focal deficit present. Mental Status: He is oriented to person, place, and time. DATA: CBC: Recent Labs 01/20/24 1304 WBC 8.2 RBC 5.32 HGB 15.9 HCT 48.0 MCV 90.2 RDW 13.9 PLT 323 BMP: Recent Labs 01/20/24 1304 NA 143 K 4.5 CL 103 CO2 27 BUN 4* CREATININE 0.84 GLUCOSE 136* CALCIUM 9.5 ANIONGAP 13 LIVER PROFILE: Recent Labs 01/20/24 1304 AST 235* ALT 206* BILITOT 0.6 ALKPHOS 209* PROT 8.7* PT/INR: No results for input(s): PROTIME, INR in the last 72 hours. CARDIAC ENZYMES: No results for input(s): TROPONINI in the last 72 hours. Procalcitonin: No results found for: PROCAL Urine Culture: No results found for this or any previous visit. COVID-19 PCR: No results for input(s): COVID19 in the last 72 hours. -am labs, replace lytes prn -vitals per routine -home meds as ordered -see below for additional orders, further recommendations to follow Orders Placed This Encounter Procedures CT abdomen pelvis w contrast CBC auto differential Comprehensive metabolic panel Lipase Urinalysis Complete with reflex to Culture Complete Urinalysis Vital Signs Admit to inpatient Code status: Prior Please forward a copy of this H&P to the patient's PCP. Thank you. Electronically signed by Latonya Larose MD at 4:36 PM Division of Hospitalist Medicine [facility] documented in this [facility]12-11-2024 Emergency department Note* Savanna Carvalho RN - 01/20/2024 3:46 PM EST [id number] Emergency department Note* Kev Carballo PA-C - 01/20/2024 11:28 AM EST Emergency Department Encounter [facility] EMERGENCY DEPT Patient: Roro Valdivia : 1985 Date of Evaluation: 01/20/2024 ED KOBY Provider: Kev Carballo PA-C EDcare was supervised by Dr. Stephens who independently examined and evaluated the patient. Please see their attestation note for further details. Chief Complaint Chief Complaint Patient presents with Abdominal Pain Pt c/o abdominal pain and N/V for approx 2days. JIMENEZ Mercado was wearing a N95, Surgical mask for the entirety of this encounter. Roro Valdivia is a 38 y.o. male who presents to the emergency department for nausea, vomiting andabdominal pain. Patient has a history of pancreatitis and said pain feels similar. Patient said he was sober but started drinking a few days ago. Abdominal pain is epigastric. Patient unable to keep anything down. No diarrhea. Limitations to history: None Outside historians: EMR Past History Past Medical History: Diagnosis Date Alcohol withdrawal syndrome without complication (HCC) 06/27/2022 Alcohol withdrawal with inpatient treatment, uncomplicated ([facility]) 03/15/2022 GERD (gastroesophageal reflux disease) History of pancreatitis 01/07/2023 Hypertension Pancreatitis Seizures ([facility]) SVT (supraventricular tachycardia) ([facility]) Tourette syndrome Past Surgical History: Procedure Laterality Date APPENDECTOMY Social History Socioeconomic History Marital status: Single Tobacco Use Smoking status: Every Day Current packs/day: 1.00 Types: Cigarettes Smokeless tobacco: Never Vaping Use Vaping status: Never Used Substance and Sexual Activity Alcohol use: Yes Comment: 2/5 vodka daily Drug use: Not Currently Types: Cocaine, Methamphetamines, Oxycodone, Fentanyl, Heroin, Benzodiazepines Sexual activity: Not Currently Social Drivers of Health Financial Resource Strain: Medium Risk (12/14/2023) Overall Financial Resource Strain (CARDIA) Difficulty of Paying Living Expenses: Somewhat hard Food Insecurity: No Food Insecurity (12/16/2023) Hunger Vital Sign Worried About Running Out of Food in the Last Year: Never true Ran Out of Food in the Last Year: Never true Recent Concern: Food Insecurity - Food Insecurity Present (10/16/2023) Hunger Vital Sign Worried About Running Out of Food in the Last Year: Often true Ran Out of Food in the Last Year: Often true Transportation Needs: Unmet Transportation Needs (12/16/2023) PRAPARE - Transportation Lack of Transportation (Medical): Yes Lack of Transportation (Non-Medical): Yes Physical Activity: Inactive (12/14/2023) Exercise Vital Sign Days of Exercise per Week: 0 days Minutes of Exercise per Session: 0 min Stress: Stress Concern Present (12/14/2023) [employer] - Occupational Stress Questionnaire Feeling of Stress : Very much Social Connections: Socially Isolated (12/14/2023) Social Connection and Isolation Panel [NHANES] Frequency of Communication with Friends and Family: Once a week Frequency of Social Gatherings with Friends and Family: More than three times a week Attends [employer] Services: Never Active Member of Clubs or Organizations: No Attends Club or Organization Meetings: Never Marital Status: Never Intimate Partner Violence: Not At Risk (12/16/2023) Humiliation, Afraid, Rape, and Kick questionnaire Fear of Current or Ex-Partner: No Emotionally Abused: No Physically Abused: No Sexually Abused: No Housing Stability: High Risk (12/16/2023) Housing Stability Vital Sign Unable to Pay for Housing in the Last Year: Patient declined Homeless in the Last Year: Yes Medications/Allergies Previous Medications METOPROLOL SUCCINATE XL (TOPROL-XL) 50 MG 24 HR TABLET Take 1 tablet (50 mg) by mouth daily. Do notcrush or chew. PANTOPRAZOLE (PROTONIX) 40 MG EC TABLET Take 1 tablet (40 mg) by mouth 2 times daily (before meals). Do not crush, chew, or split. RISPERIDONE (RISPERDAL) 0.5 MG TABLET Take 1 tablet (0.5 mg) by mouth Nightly. VENLAFAXINE XR (EFFEXOR XR) 75 MG 24 HR CAPSULE Take 1 capsule (75 mg) by mouth daily (with breakfast). Do not crush or chew. Do not start before December 18, 2023. No Known Allergies Physical Exam BP (!) 160/107 Pulse 95 Temp 36.9 C (98.4 F) (Temporal) Resp 16 SpO2 97% Physical Exam GENERAL APPEARANCE: Awake and alert. Cooperative. HEENT: Normocephalic. Atraumatic. Sclera anicteric. Tolerates saliva. No trismus. NECK: Supple. Trachea midline. CARDIO: Normal rate. Radial pulses symmetrical and palpable LUNGS: Respirations unlabored. CTAB. ABDOMEN: Soft. Nondistended. Epigastric abdominal tenderness to palpation. No guarding. MUSCULOSKELETAL: No acute deformities. SKIN: Warm and dry. NEUROLOGICAL: No gross facial drooping. No obvious neurologic deficits. Control Clerk strength symmetrical. Moves all 4 extremities spontaneously. SCREENINGS D Labs: Results for orders placed or performed during the hospital encounter of 01/20/24 CBC auto differential Collection Time: 01/20/24 1:04 PM Result Value Ref Range Auto WBC 8.2 3.6 - 10.7 10*3/uL RBC 5.32 4.40 - 5.90 10*6/uL Hemoglobin 15.9 13.0 - 18.0 g/dL Hematocrit 48.0 40.0 - 52.0 % MCV 90.2 77.0 - 99.0 fL MCH 29.9 26.0 - 34.0 pg MCHC 33.1 30.5 - 36.0 % RDW 13.9 11.5 - 15.0 % Platelets 323 140 - 440 10*3/uL MPV 9.7 9.0 - 12.7 fL nRBC 0.0 0.0 - 2.0 /100 WBCs Neutrophils Relative 46.8 38.0 - 82.0 % Lymphocytes Relative 45.8 (H) 15.0 - 45.0 % Monocytes Relative 6.1 5.0 - 13.0 % Eosinophils Relative 0.4 0.0 - 6.0 % Basophils Relative 0.7 0.0 - 2.0 % Immature Grans % 0.2 0.0 - 2.0 % Neutrophils Absolute 3.8 1.8 - 7.5 10*3/uL Lymphocytes Absolute 3.7 1.0 - 4.3 10*3/uL Monocytes Absolute 0.5 0.0 - 0.9 10*3/uL Eosinophils Absolute 0.0 0.0 - 0.5 10*3/uL Basophils Absolute 0.1 0.0 - 0.2 10*3/uL Immature Grans Absolute 0.0 <0.1 10*3/uL Comprehensive metabolic panel Collection Time: 01/20/24 1:04 PM Result Value Ref Range SODIUM 143 136 - 145 mmol/L POTASSIUM 4.5 3.5 - 5.1 mmol/L CHLORIDE 103 98 - 107 mmol/L CARBON DIOXIDE 27 22 - 29 mmol/L ANION GAP 13 3 - 13 mmol/L UREA NITROGEN 4 (L) 8 - 21 mg/dL CREATININE 0.84 0.72 - 1.25 mg/dL GLUCOSE 136 (H) 74 - 100 mg/dL CALCIUM 9.5 8.4 - 10.2 mg/dL AST (SGOT) 235 (H) <34 U/L ALT 206 (H) <40 U/L ALKALINE PHOSPHATASE 209 (H) 40 - 150 U/L ALBUMIN 4.3 3.5 - 5.0 g/dL BILIRUBIN, TOTAL 0.6 <1.2 mg/dL TOTAL PROTEIN 8.7 (H) 6.4 - 8.3 g/dL eGFR >90.0 >60.0 mL/min/1.73m*2 Lipase Collection Time: 01/20/24 1:04 PM Result Value Ref Range LIPASE 273 (H) <55 U/L Complete Urinalysis Collection Time: 01/20/24 1:11 PM Result Value Ref Range Color, Urine Yellow Lt. Yellow Clarity, Urine Slightly Cloudy (A) Clear pH, Urine 5.5 5.0 - 8.0 pH Leukocytes, Urine Negative Negative Teofilo/uL Nitrite, Urine Negative Negative Protein, Urine 50 (A) Negative mg/dL Glucose, Urine 30 Normal (<70) mg/dL Bilirubin, Urine Negative Negative mg/dL Ketones, Urine Trace (A) Negative mg/dL Urobilinogen, Urine 3 (A) Normal (0-1) mg/dL Blood, Urine Negative Negative mg/dL RBC, Urine 0-2 0 - 2 /HPF WBC, Urine 3-5 0 - 5 /HPF Squamous Epithelial, Urine 0-2 3 - 5 /HPF Bacteria, Urine Moderate (A) Negative /HPF Mucus, Urine Many (A) Negative /LPF Hyaline Casts, Urine 11-25 (A) Negative /LPF SPECIFIC GRAVITY OF URINE (NUMERIC) 1.019 1.005 - 1.030 Radiographs: CT abdomen pelvis w contrast Final Result 1. Acute pancreatitis. 2. Bladder wall mildly diffusely thickened which may relate to under distention. Correlate with urinalysis. 3. Diffuse hepatic steatosis. Report Dictated on Electronically Signed By: Steve Medellin MD Electronically Signed Date/Time: 01/20/2024 2:50 PM EST : EKG: All EKG's areinterpreted by the Emergency Department Physician in the absence of a production control planner. see their note for interpretation of EKG. EMERGENCY DEPARTMENT COURSE and DIFFERENTIAL DIAGNOSIS/MDM: External Records Review: Reviewed Care Everywhere. Social Determinants of Health: Alcoholism. Roro Valdivia is a 38 y.o. male who presented to the emergency department for epigastric abdominal pain, nausea and vomiting. Patient said he has a history of pancreatitis and did start drinking a few days ago. Differential diagnosis included pancreatitis, gastritis, gastroenteritis. Pt given IV fluids, Zofran and morphine. Our workup consisted of ordering/reviewing CBC, CMP, lipase, UA and showed transaminitis. Lipase 273. CT abd/pelvis showed acute pancreatitis. Presentation consistent with acute pancreatitis. Patient will be admitted for pain control and symptomatic management given he does not feel he can go home. Patient admitted to medicine team. Final Diagnosis: 1. Alcohol-induced acute pancreatitis, unspecified complication status 2. Abdominal pain, generalized Medications sodium chloride 0.9 % bolus 1,000 mL (1,000 mL IntraVENous New Bag 01/20/24 1305) morphine injection 4 mg (4 mg IntraVENous Given 01/20/24 1314) ondansetron (Zofran) injection 4 mg (4 mg IntraVENous Given 01/20/24 1311) iopamidol (Isovue-370) 76 % injection 75 mL (75 mL IntraVENous Given 01/20/24 1439) morphine injection 4 mg (4 mg IntraVENous Given 01/20/24 1545) CONSULTS: None PROCEDURES: Unless otherwise noted below, none Procedures DISPOSITION/PLAN Admit 01/20/2024 03:43:24 PM PATIENT REFERRED TO: No follow-up provider specified. DISCHARGE MEDICATIONS: New Prescriptions No medications on file @[facility]([id number]:LAST:1)@ (Please note: Portions of this note were completed with a voice recognition program. Efforts were made to edit the dictations but occasionally words and phrases are mis-transcribed.) Form [id number] Kev Carballo PA-C [employer] Kev Carballo PA-C 01/20/24 1547 Cosigned by Calvin Stephens MD at 01/20/2024 7:57 PM EST [id number] Emergency department Note* Calvin Stephens MD - 01/20/2024 11:28 AM EST Emergency Department Encounter [facility] EMERGENCY DEPT Patient: Roro Valdivia : 1985 Date of Evaluation: 01/20/2024 ED Supervising Physician: Calvin Stephens MD [facility] SUPERVISORY NOTE & SHARED ENCOUNTER ATTESTATION: I independently examined and evaluated Roro Valdivia. I personally saw the patient and performed a substantive portion of the visit including all aspectsof the Medical Decision Making. I managed the patient in a supervisory role and I personally saw the patient and made/approved the management plan and take responsibility for the patient management. In brief, Roro Valdivia is a 38 y.o. male that presents to the emergency department for evaluation of abdominal pain after drinking alcohol. The patient has a history of pancreatitis he drank relatively heavy he states around 4 days or so ago and over the last 2 days been having severe epigastricpain with nausea and vomiting no GI bleeding no chest pain or shortness of breath. Focused exam: LUNGS: Breath sounds are equal, clear to auscultation, no wheeze retractions or cyanosis and no crackles present. HEART: Regular rate and rhythm no murmur or thrill or rub, strong heart tones Abdomen: Diffuse mid abdominal tenderness no lower quadrant guarding rebound mass or aneurysm Brief ED course/MDM: Labs were obtained which showed white count 8.2 hemoglobin 15.9 chemistries his electrolytes are fine his LFTs are elevated his lipase is 273. He was having ongoing pain despite IV fluids normal saline and pain medication consisting of IV morphine and antiemetics of IV Zofran therefore CT abdomen pelvis was obtained. CT abdomen pelvis IV contrast interpreted by me shows no mass abscess or obstruction but there doesappear to be acute pancreatitis. The admitting service will be consulted and patient admitted because of ongoing nausea vomiting andinability tolerate fluids All diagnostic, treatment, and disposition decisions were made by myself in conjunction with the [facility]. For all further details of the patient's emergency department visit, please see the full medical record and documentation. (Please note that portions of this note may have been completed with a voice recognition program. Efforts were made to edit the dictations but occasionally words are mis-transcribed.) Calvin Stephens MD [employer] Calvin Stephens MD 01/20/24 1532 Calvin Stephens MD 01/20/241956 [facility] Phone: [phone] 479-878711-29-2024 Emergency department Note* Gracy Dyer DO - 01/08/2024 5:24 AM EST EMERGENCY DEPARTMENT ENCOUNTER Pt Name: Roro Valdivia Birthdate 1985 Date of evaluation: 01/08/2024 ED Provider: Gracy Dyer DO CHIEF COMPLAINT Chief Complaint Patient presents with Abdominal Pain Nausea HISTORY OF PRESENT ILLNESS (Location/Symptom, Timing/Onset, Context/Setting, Quality, Duration, Modifying Factors, Severity) Note limiting factors. I wore appropriate PPE for the entirety of this encounter. HPI Roro Valdivia is a 38 y.o. male medical history of polysubstance abuse/severe alcohol use disorder, opiate and cocaine use disorder, history of pancreatitis, GERD, history of appendectomy who presents to the emergency department with cramping epigastric abdominal pain with associated nausea vomiting for last 2 and half days, worsened this evening. Similar to prior pancreatitis flares. Prior pancreatitis flares trigger from alcohol abuse. States he has been sober from all drugs for last 4 weeks. Denies bowel movement changes, UTIs, fever/chills. No chest pain or shortness of breath. Nursing Notes were reviewed. Limitations to history: None Outside historians: None REVIEW OF SYSTEMS Review of Systems Negative except per HPI PAST MEDICAL HISTORY Past Medical History: Diagnosis Date Alcohol withdrawal syndrome without complication (HCC) 06/27/2022 Alcohol withdrawal with inpatient treatment, uncomplicated (HCC) 03/15/2022 GERD (gastroesophageal reflux disease) History of pancreatitis 01/07/2023 Hypertension Pancreatitis Seizures (HCC) SVT (supraventricular tachycardia) (HCC) Tourette syndrome SURGICAL HISTORY Past Surgical History: Procedure Laterality Date APPENDECTOMY CURRENT MEDICATIONS Discharge Medication List as of 01/08/2024 7:43 AM CONTINUE these medications which have NOT CHANGED Details melatonin 5 MG tablet Take 1 tablet (5 mg) by mouth Nightly., Starting Thu12/17/2023, Until 01/16/2024, Normal metoprolol succinate XL (Toprol-XL) 50 MG 24 hr tablet Take 1 tablet (50 mg) by mouth daily. Do notcrush or chew., Starting Thu12/17/2023, Until Thu12/16/2024, Normal pantoprazole (ProtoNix) 40 MG EC tablet Take 1 tablet (40 mg) by mouth 2 times daily (before meals). Do not crush, chew, or split., Starting Thu12/17/2023, Until Thu12/16/2024, Normal risperiDONE (RisperDAL) 0.5 MG tablet Take 1 tablet (0.5 mg) by mouth Nightly., Starting Thu12/17/2023, Until Thu02/15/2024, Normal venlafaxine XR (Effexor XR) 75 MG 24 hr capsule Take 1 capsule (75 mg) by mouth daily (with breakfast). Do not crush or chew. Do not start before December 18, 2023., Starting Thu12/18/2023, Until Thu02/16/2024, Normal ALLERGIES Patient has no known allergies. FAMILY HISTORY Family History Problem Relation Name Age of Onset No Known Problems Mother No Known Problems Father SOCIAL HISTORY Social History Socioeconomic History Marital status: Single Tobacco Use Smoking status: Every Day Current packs/day: 1.00 Types: Cigarettes Smokeless tobacco: Never Vaping Use Vaping status: Never Used Substance and Sexual Activity Alcohol use: Yes Comment: 2/5 vodka daily Drug use: Not Currently Types: Cocaine, Methamphetamines, Oxycodone, Fentanyl, Heroin, Benzodiazepines Sexual activity: Not Currently Social Drivers of Health Financial Resource Strain: Medium Risk (12/14/2023) Overall Financial Resource Strain (CARDIA) Difficulty of Paying Living Expenses: Somewhat hard Food Insecurity: No Food Insecurity (12/16/2023) Hunger Vital Sign Worried About Running Out of Food in the Last Year: Never true Ran Out of Food in the Last Year: Never true Recent Concern: Food Insecurity - Food Insecurity Present (10/16/2023) Hunger Vital Sign Worried About Running Out of Food in the Last Year: Often true Ran Out of Food in the Last Year: Often true Transportation Needs: Unmet Transportation Needs (12/16/2023) PRAPARE - Transportation Lack of Transportation (Medical): Yes Lack of Transportation (Non-Medical): Yes Physical Activity: Inactive (12/14/2023) Exercise Vital Sign Days of Exercise per Week: 0 days Minutes of Exercise per Session: 0 min Stress: Stress Concern Present (12/14/2023) [employer] - Occupational Stress Questionnaire Feeling of Stress : Very much Social Connections: Socially Isolated (12/14/2023) Social Connection and Isolation Panel [NHANES] Frequency of Communication with Friends and Family: Once a week Frequency of Social Gatherings with Friends and Family: More than three times a week Attends [employer] Services: Never Active Member of Clubs or Organizations: No Attends Club or Organization Meetings: Never Marital Status: Never Intimate Partner Violence: Not At Risk (12/16/2023) Humiliation, Afraid, Rape, and Kick questionnaire Fear of Current or Ex-Partner: No Emotionally Abused: No Physically Abused: No Sexually Abused: No Housing Stability: High Risk (12/16/2023) Housing Stability Vital Sign Unable to Pay for Housing in the Last Year: Patient declined Homeless in the Last Year: Yes SCREENINGS PHYSICAL EXAM ED Triage Vitals [01/08/24 0528] Temp Heart Rate Resp BP 36.3 C (97.3 F) 91 18 (!) 164/107 SpO2 Temp Source Heart Rate Source Patient Position 97 % Temporal Monitor -- BP Location FiO2 (%) -- -- Physical Exam BP (!) 164/107 Pulse 91 Temp 36.3 C (97.3 F) (Temporal) Resp 18 Ht 1.854 m (6' 1) Wt 111kg (245 lb) SpO2 97% BMI 32.32 kg/m Gen: Nontoxic appearing CV: RRR, no murmurs Pulm: CTA BL Abdomen: Soft, TTP epigastric, no distension, no rebound/guarding, no peritoneal signs and no masses. DIAGNOSTIC RESULTS LABS: Labs Reviewed COMPREHENSIVE METABOLIC PANEL - Abnormal Result Value SODIUM 136 POTASSIUM 5.5 (*) CHLORIDE 101 CARBON DIOXIDE 26 ANION GAP 9 UREA NITROGEN 7 (*) CREATININE 0.65 (*) GLUCOSE 127 (*) CALCIUM 9.8 AST (SGOT) 151 (*) ALT 139 (*) ALKALINE PHOSPHATASE 146 (*) ALBUMIN 4.8 BILIRUBIN, TOTAL 1.5 (*) TOTAL PROTEIN 8.6 (*) eGFR >90.0 Narrative: Moderately Hemolyzed. Interpret with caution. LIPASE - Abnormal LIPASE 484 (*) CBC WITH AUTO DIFFERENTIAL - Normal Auto WBC 7.8 RBC 5.04 Hemoglobin 15.6 Hematocrit 47.7 MCV 94.6 MCH 31.0 MCHC 32.7 RDW 13.7 Platelets 300 MPV 10.5 nRBC 0.0 Neutrophils Relative 68.3 Lymphocytes Relative 24.4 Monocytes Relative 5.9 Eosinophils Relative 0.8 Basophils Relative 0.5 Immature Grans % 0.1 Neutrophils Absolute 5.3 Lymphocytes Absolute 1.9 Monocytes Absolute 0.5 Eosinophils Absolute 0.1 Basophils Absolute 0.0 Immature Grans Absolute 0.0 All other labs were within normal range or not returned as of this dictation. EMERGENCY DEPARTMENT COURSE and DIFFERENTIAL DIAGNOSIS/MDM: Vitals: Vitals: 01/08/24 0526 01/08/24 0528 BP: (!) 164/107 Pulse: 91 Resp: 18 Temp: 36.3 C (97.3 F) TempSrc: Temporal SpO2: 97% Weight: 111 kg (245 lb) Height: 1.854 m (6' 1) 38-year-old male with medical history of alcohol induced pancreatitis, polysubstance abuse, historyof appendectomy presenting with epigastric abdominal pain/nausea/vomiting worsening over the last several days, similar to prior pancreatitis flares. Endorses sobriety from all illicit substances including alcohol for last 4 weeks. Vital signs stable, afebrile. Exam with epigastric tenderness without peritoneal signs. Considered pancreatitis, gastritis, EMELY, electrode abnormality. Abdominal labs with mild elevation of lipase. No leukocytosis. No EMELY. LFTs/bilirubin consistent with patient's baseline. Treated symptomatically in the emergency department with IV fluids, IV Pepcid, IV morphine, IV Zofran. Patient presentation and evaluation consistent with pancreatitis. Discharged home with prescription for Bentyl and Zofran. FINAL IMPRESSION 1. Abdominal pain, epigastric 2. Acute pancreatitis, unspecified complication status, unspecified pancreatitis type DISPOSITION Discharge 01/08/2024 07:42:00 AM PATIENT REFERRED TO: Tam Hughes DO [address] [facility] [phone] Call in 3 days DISCHARGE MEDICATIONS: Discharge Medication List as of 01/08/2024 7:43 AM START taking these medications Details dicyclomine (Bentyl) 20 MG tablet Take 1 tablet (20 mg) by mouth 3 times daily as needed (Abdominalpain) for up to 10 days., Starting Thu01/08/2024, Until Thu01/18/2024 at 2359, Normal ondansetron ODT (Zofran-ODT) 4 MG disintegrating tablet Take 1 tablet (4 mg) by mouth every 8 hoursas needed for nausea or vomiting for up to 7 days., Starting Thu01/08/2024, Until Thu01/15/2024 [id number], Normal (Comment: Please note this report has been produced using speech recognition software and may contain errors related to that system including errors in grammar, punctuation, and spelling, as well as words and phrases that may be inappropriate. If there are any questions or concerns please feel freeto contact the dictating provider for clarification.) Gracy Dyer DO (electronically signed) Emergency Medicine Provider Gracy Dyer DO 01/08/24 0820 * Sully Rivers RN - 01/08/2024 5:24 AM EST Pt complaints of abdominal pain, concerned for possible pancreatitis. Pt states pain is constant innature, rates at 7/10. Pt states pain is upper middle/ epigastric area. Started day before yesterday, worsening today. Pt does also reports nausea and vomiting. Pt reports at least 5 episodes of vomiting per day. Denies emesis being bloody. Denies any fever/ chills. [facility] in [facility]24 Emergency department Triage note* Sully Rivers RN - 01/08/2024 5:24 AM EST Pt complaints of abdominal pain, concerned for possible pancreatitis. Pt states pain is constant innature, rates at 7/10. Pt states pain is upper middle/ epigastric area. Started day before yesterday, worsening today. Pt does also reports nausea and vomiting. Pt reports at least 5 episodes of vomiting per day. Denies emesis being bloody. Denies any fever/ chills. [id number] Emergency [facility] Note* Gracy Dyer DO - 01/08/2024 5:24 AM EST EMERGENCY DEPARTMENT ENCOUNTER Pt Name: Roro Valdivia Birthdate 1985 Date of evaluation: 01/08/2024 ED Provider: Gracy Dyer DO CHIEF COMPLAINT Chief Complaint Patient presents with Abdominal Pain Nausea HISTORY OF PRESENT ILLNESS (Location/Symptom, Timing/Onset, Context/Setting, Quality, Duration, Modifying Factors, Severity) Note limiting factors. I wore appropriate PPE for the entirety of this encounter. HPI Roro Valdivia is a 38 y.o. male medical history of polysubstance abuse/severe alcohol use disorder, opiate and cocaine use disorder, history of pancreatitis, GERD, history of appendectomy who presents to the emergency department with cramping epigastric abdominal pain with associated nausea vomiting for last 2 and half days, worsened this evening. Similar to prior pancreatitis flares. Prior pancreatitis flares trigger from alcohol abuse. States he has been sober from all drugs for last 4 weeks. Denies bowel movement changes, UTIs, fever/chills. No chest pain or shortness of breath. Nursing Notes were reviewed. Limitations to history: None Outside historians: None REVIEW OF SYSTEMS Review of Systems Negative except per HPI PAST MEDICAL HISTORY Past Medical History: Diagnosis Date Alcohol withdrawal syndrome without complication (HCC) 06/27/2022 Alcohol withdrawal with inpatient treatment, uncomplicated (HCC) 03/15/2022 GERD (gastroesophageal reflux disease) History of pancreatitis 01/07/2023 Hypertension Pancreatitis Seizures (HCC) SVT (supraventricular tachycardia) (HCC) Tourette syndrome SURGICAL HISTORY Past Surgical History: Procedure Laterality Date APPENDECTOMY CURRENT MEDICATIONS Discharge Medication List as of 01/08/2024 7:43 AM CONTINUE these medications which have NOT CHANGED Details melatonin 5 MG tablet Take 1 tablet (5 mg) by mouth Nightly., Starting Janay 12/17/2023, Until 01/16/2024, Normal metoprolol succinate XL (Toprol-XL) 50 MG 24 hr tablet Take 1 tablet (50 mg) by mouth daily. Do notcrush or chew., Starting Thu12/17/2023, Until Thu12/16/2024, Normal pantoprazole (ProtoNix) 40 MG EC tablet Take 1 tablet (40 mg) by mouth 2 times daily (before meals). Do not crush, chew, or split., Starting Thu12/17/2023, Until Thu12/16/2024, Normal risperiDONE (RisperDAL) 0.5 MG tablet Take 1 tablet (0.5 mg) by mouth Nightly., Starting Thu12/17/2023, Until Thu02/15/2024, Normal venlafaxine XR (Effexor XR) 75 MG 24 hr capsule Take 1 capsule (75 mg) by mouth daily (with breakfast). Do not crush or chew. Do not start before December 18, 2023., Starting Thu12/18/2023, Until Thu02/16/2024, Normal ALLERGIES Patient has no known allergies. FAMILY HISTORY Family History Problem Relation Name Age of Onset No Known Problems Mother No Known Problems Father SOCIAL HISTORY Social History Socioeconomic History Marital status: Single Tobacco Use Smoking status: Every Day Current packs/day: 1.00 Types: Cigarettes Smokeless tobacco: Never Vaping Use Vaping status: Never Used Substance and Sexual Activity Alcohol use: Yes Comment: 2/5 vodka daily Drug use: Not Currently Types: Cocaine, Methamphetamines, Oxycodone, Fentanyl, Heroin, Benzodiazepines Sexual activity: Not Currently Social Drivers of Health Financial Resource Strain: Medium Risk (12/14/2023) Overall Financial Resource Strain (CARDIA) Difficulty of Paying Living Expenses: Somewhat hard Food Insecurity: No Food Insecurity (12/16/2023) Hunger Vital Sign Worried About Running Out of Food in the Last Year: Never true Ran Out of Food in the Last Year: Never true Recent Concern: Food Insecurity - Food Insecurity Present (10/16/2023) Hunger Vital Sign Worried About Running Out of Food in the Last Year: Often true Ran Out of Food in the Last Year: Often true Transportation Needs: Unmet Transportation Needs (12/16/2023) PRAPARE - Transportation Lack of Transportation (Medical): Yes Lack of Transportation (Non-Medical): Yes Physical Activity: Inactive (12/14/2023) Exercise Vital Sign Days of Exercise per Week: 0 days Minutes of Exercise per Session: 0 min Stress: Stress Concern Present (12/14/2023) [employer] - Occupational Stress Questionnaire Feeling of Stress : Very much Social Connections: Socially Isolated (12/14/2023) Social Connection and Isolation Panel [NHANES] Frequency of Communication with Friends and Family: Once a week Frequency of Social Gatherings with Friends and Family: More than three times a week Attends [employer] Services: Never Active Member of Clubs or Organizations: No Attends Club or Organization Meetings: Never Marital Status: Never Intimate Partner Violence: Not At Risk (12/16/2023) Humiliation, Afraid, Rape, and Kick questionnaire Fear of Current or Ex-Partner: No Emotionally Abused: No Physically Abused: No Sexually Abused: No Housing Stability: High Risk (12/16/2023) Housing Stability Vital Sign Unable to Pay for Housing in the Last Year: Patient declined Homeless in the Last Year: Yes SCREENINGS PHYSICAL EXAM ED Triage Vitals [01/08/24 0528] Temp Heart Rate Resp BP 36.3 C (97.3 F) 91 18 (!) 164/107 SpO2 Temp Source Heart Rate Source Patient Position 97 % Temporal Monitor -- BP Location FiO2 (%) -- -- Physical Exam BP (!) 164/107 Pulse 91 Temp 36.3 C (97.3 F) (Temporal) Resp 18 Ht 1.854 m (6' 1) Wt 111kg (245 lb) SpO2 97% BMI 32.32 kg/m Gen: Nontoxic appearing CV: RRR, no murmurs Pulm: CTA BL Abdomen: Soft, TTP epigastric, no distension, no rebound/guarding, no peritoneal signs and no masses. DIAGNOSTIC RESULTS LABS: Labs Reviewed COMPREHENSIVE METABOLIC PANEL - Abnormal Result Value SODIUM 136 POTASSIUM 5.5 (*) CHLORIDE 101 CARBON DIOXIDE 26 ANION GAP 9 UREA NITROGEN 7 (*) CREATININE 0.65 (*) GLUCOSE 127 (*) CALCIUM 9.8 AST (SGOT) 151 (*) ALT 139 (*) ALKALINE PHOSPHATASE 146 (*) ALBUMIN 4.8 BILIRUBIN, TOTAL 1.5 (*) TOTAL PROTEIN 8.6 (*) eGFR >90.0 Narrative: Moderately Hemolyzed. Interpret with caution. LIPASE - Abnormal LIPASE 484 (*) CBC WITH AUTO DIFFERENTIAL - Normal Auto WBC 7.8 RBC 5.04 Hemoglobin 15.6 Hematocrit 47.7 MCV 94.6 MCH 31.0 MCHC 32.7 RDW 13.7 Platelets 300 MPV 10.5 nRBC 0.0 Neutrophils Relative 68.3 Lymphocytes Relative 24.4 Monocytes Relative 5.9 Eosinophils Relative 0.8 Basophils Relative 0.5 Immature Grans % 0.1 Neutrophils Absolute 5.3 Lymphocytes Absolute 1.9 Monocytes Absolute 0.5 Eosinophils Absolute 0.1 Basophils Absolute 0.0 Immature Grans Absolute 0.0 All other labs were within normal range or not returned as of this dictation. EMERGENCY DEPARTMENT COURSE and DIFFERENTIAL DIAGNOSIS/MDM: Vitals: Vitals: 01/08/24 0526 01/08/24 05 BP: (!) 164/107 Pulse: 91 Resp: 18 Temp: 36.3 C (97.3 F) TempSrc: Temporal SpO2: 97% Weight: 111 kg (245 lb) Height: 1.854 m (6' 1) 38-year-old male with medical history of alcohol induced pancreatitis, polysubstance abuse, historyof appendectomy presenting with epigastric abdominal pain/nausea/vomiting worsening over the last several days, similar to prior pancreatitis flares. Endorses sobriety from all illicit substances including alcohol for last 4 weeks. Vital signs stable, afebrile. Exam with epigastric tenderness without peritoneal signs. Considered pancreatitis, gastritis, EMELY, electrode abnormality. Abdominal labs with mild elevation of lipase. No leukocytosis. No EMELY. LFTs/bilirubin consistent with patient's baseline. Treated symptomatically in the emergency department with IV fluids, IV Pepcid, IV morphine, IV Zofran. Patient presentation and evaluation consistent with pancreatitis. Discharged home with prescription for Bentyl and Zofran. FINAL IMPRESSION 1. Abdominal pain, epigastric 2. Acute pancreatitis, unspecified complication status, unspecified pancreatitis type DISPOSITION Discharge 01/08/2024 07:42:00 AM PATIENT REFERRED TO: Tam Hughes [facility] [address] [facility] [place] [phone] Call in 3 days DISCHARGE MEDICATIONS: Discharge Medication List as of 01/08/2024 7:43 AM START taking these medications Details dicyclomine (Bentyl) 20 MG tablet Take 1 tablet (20 mg) by mouth 3 times daily as needed (Abdominalpain) for up to 10 days., Starting Thu01/08/2024, Until 01/18/2024 at 2359, Normal ondansetron ODT (Zofran-ODT) 4 MG disintegrating tablet Take 1 tablet (4 mg) by mouth every 8 hoursas needed for nausea or vomiting for up to 7 days., Starting Thu01/08/2024, Until Thu01/15/2024 [id number], Normal (Comment: Please note this report has been produced using speech recognition software and may contain errors related to that system including errors in grammar, punctuation, and spelling, as well as words and phrases that may be inappropriate. If there are any questions or concerns please feel freeto contact the dictating provider for clarification.) Gracy Dyer DO (electronically signed) Emergency Medicine Provider Gracy Dyer DO 01/08/24 0820 [employer] Phone: [phone]) 189-496711-07-2024 History of Present illness Narrative* Stone Ramsey MD - 12/17/2023 12:16 PM EST Chief complaint Chief Complaint Patient presents with Alcohol Intoxication Brought in by his mother from home. He was recently at [facility] for some time. They discontinued his psych meds due to pancreatitis (ETOH induced). Upon arrival to the room he was not answering questionsbut then was able to do so. He states he does have hallucinations sometimes but denies SI/HI. Is complaining of abdominal pain 11/18. Was having nausea and vomiting in triage and earlier this morning. Pancreatitis Seen for follow up of substance dependence and use and to monitor withdrawals S: Patient seen and examined. Lying comfortably in bed anticipating discharge denies any residual withdrawals REVIEW OF SYMPTOMS: Patient denies CP or SOB.Denies audio-, visual or tactile hallucinations. Denies dizziness or visual changes. Denies acute pain. Denies rhinorrhea, lacrimation, cough or sore throat. No difficulty ambulating, urinating, swallowing. Denies rash O: Vitals: 12/17/23 0722 BP: 146/92 Pulse: 62 Resp: 17 Temp: 36.6 C (97.8 F) SpO2: 96% Patient seen and examined. Alert and oriented x 3. NAD. Head: NCAT. Skin: warm, dry CNII-XII are grossly intact. And symmetrical Sensation appears to be intact in distal extremities and Gait stable. Insight and judgement are fair. Denies suicidal or homocidal ideation. Cognition intact. Denies audio, visual or tactile hallucinations. Not responding to internal stimuli, good eye contact. No results found for this or any previous visit (from the past 24 hours). Assessment/Plan: alcohol use disorder severe with withdrawal that resolved Day # 4 of no use Evaluated the patient ciwa score and is low, and will adjust the phenobarb according to the currentsymptoms/signs continue to monitor and participate in the unit acitivities Patient is stable Patient is done with the detox addiction medicine will sign off on the patient please reconsult if needed thank you Stone Ramsey MD, MD Addiction Medicine 12/17/2023 at 12:17 PM * Maxwell Esposito MD - 12/17/2023 9:14 AM EST Hospitalist Progress Note 12/17/2023 9:14 AM [id number]: Please page me for patient care issues. [phone]: Please page [facility] night Hospitalist for any issues. Subjective: Admit Date: 12/13/2023 PCP: Tam Hughes, Room#: N3357/N3-016 A Interval History: Patient seen and examined 38-year-old male past medical history of alcohol use disorder, alcohol withdrawal seizure, pancreatitis, GERD, hypertension, SVT, smoking history, depression, admitted in November 2023 at [facility] following pancreatitis/abnormal LFT, hepatitis panel negative, right upper quadrant ultrasonogram showed severe hepatic steatosis, echo at the time showed EF normal. Psychiatric medication was discontinued due to abnormal LFT during last admission. Patient denies any hematemesis, abdominal pain No nausea, vomiting No chest pain, shortness of breath No fever spike noted Lab data's / Imaging studies reviewed No lab data from today Past medical history : Past Medical History: Diagnosis Date Alcohol withdrawal syndrome without complication (HCC) 06/27/2022 Alcohol withdrawal with inpatient treatment, uncomplicated (HCC) 03/15/2022 GERD (gastroesophageal reflux disease) History of pancreatitis 01/07/2023 Hypertension Pancreatitis Seizures (HCC) SVT (supraventricular tachycardia) (HCC) Tourette syndrome Adult diet Regular @[id number]@ Medications: desvenlafaxine, 50 mg, Oral, Daily folic acid, 1 mg, Oral, Daily melatonin, 5 mg, Oral, Nightly metoprolol succinate XL, 50 mg, Oral, Daily pantoprazole, 40 mg, Oral, BID AC PHENobarbital, 32.4 mg, Oral, Q4H Followed by PHENobarbital, 16.2 mg, Oral, Q4H risperiDONE, 0.5 mg, Oral, Nightly thiamine, 100 mg, Oral, Daily LABS: CBC: Recent Labs 12/14/23 1640 12/15/2322612/16/23 0158 WBC -- 3.9 -- RBC -- 3.65* -- HGB 12.6* 11.3* 12.1* HCT 38.1* 34.1* 37.4* MCV -- 93.4 -- RDW -- 13.9 -- PLT -- 246 -- BMP: Recent Labs 12/15/23226 NA 136 K 3.5 CL 104 CO2 22 BUN 4* CREATININE 0.61* GLUCOSE 101* CALCIUM 9.1 ANIONGAP 10 LIVER PROFILE: Recent Labs 12/15/2322612/16/23 0158 AST 70* 84* ALT 81* 80* BILITOT 1.3 1.0 ALKPHOS 116 111 PROT 6.5 6.7 PT/INR: No results for input(s): PROTIME, INR in the last 72 hours. CARDIAC ENZYMES: No results for input(s): TROPONINI in the last 72 hours. Procalcitonin: No results found for: PROCAL @RISRSLTSPECIALTY@ I reviewed: [x] laboratory results [x] radiographic results At the time of today's encounter. Pt was informed about the results. Objective: Vitals: BP 146/92 Pulse 62 Temp 36.6 C (97.8 F) (Temporal) Resp 17 Ht 5' 10 (1.778 m) Wt251 lb 5.2 oz (114 kg) SpO2 96% BMI 36.06 kg/m Pulse Ox: SpO2 Av.5 % Min: 96 % Max: 97 % Supplemental O2: General appearance: No apparent distress, HEENT: Eyes: No scleral icterus No pallor Oral: Tongue is semi-moist Cardiovascular: S1S2 heard, RRR Respiratory: Clear to auscultation bilaterally anteriorly Abdomen: Soft, nontender, non-distended, no mass palpable with normal bowel sounds. Neurology- Awake alert, answering questions No focal neurology noted Extremity- no significant peripheral edema both lower extremities Assessment Acute problems--- Alcohol use disorder, admitted for detox Hematemesis, status post EGD -grade D esophagitis, portal hypertensive gastropathy, moderate hiatalhernia, gastritis done on 12/14/2023 Abnormal LFT, previous hepatitis panel was negative Leukocytosis, resolved Sinus tachycardia on admission, resolved History of depression Chronic issue--- Alcohol withdrawal seizure in past Pancreatitis GERD Hypertension Chronic smoking history Depression SVT Class III obesity Plan Continue thiamine/folic acid Tapering dose of phenobarbital per addiction medicine team Continue Protonix 40 mg twice daily Seen by psychiatric team, continue Pristiq/risperidone for depression SCDs for DVT prophylaxis Continue rest of medication as ordered Patient was informed about all work up and treatment plan. Patient wanted to go home today, will notify addiction medicine team. Discussed with nursing staff/TCC Toxic drug monitoring/narrow therapeutic index drug monitoring : # Drug name : None # Route administered : # Method of monitoring : Extended Emergency Contact Information Primary Emergency Contact: Summer Valdivia Mobile Relation: Mother Advance Directive: Full Code Discharge planning: DC home today if okay with addiction medicine team. NOTE: This report was transcribed using voice recognition software. Every effort was made to ensureaccuracy; however, inadvertent computerized home improvement installer errors may be present. Maxwell Esposito MD Division of Hospitalist Medicine [facility] PAGER: Epic chat Addendum Message from addiction medicine team, patient okay for discharge today. * Lizeth Randall RD - 12/16/2023 11:21 AM EST Nutrition Assessment Type and Reason for Visit: Positive Nutrition Screen (Poor PO intake) Nutrition Recommendations/Plan: Continue Regular diet. Encourage adequate PO intake. Continue Ensure Plus BID (8 oz provides 350 kcal, 20 g protein). Please record % meal and oral nutrition supplement consumed in flow sheet for most accurate nutrient intake assessment. Will continue to monitor weight changes, labs, and overall nutrition status. RD will continue to follow up weekly. Malnutrition Assessment: Malnutrition Status: At risk for malnutrition (Comment) Context: Social/Environmental Circumstances Findings of the 6 clinical characteristics of malnutrition: Energy Intake: 50% or less estimated energy requirements for 1 month or longer Weight Loss: No significant weight loss (Per chart review-> 01/07/23 245#, 10/16/23 250#, 11/20 252#, 12/12 252#, 12/13 251, 12/15 256#) Body Fat Loss: No significant body fat loss Muscle Mass Loss: No significant muscle mass loss Fluid Accumulation: No significant fluid accumulation Control Clerk Strength: Not Performed Patient Summary: Patient with PMHx of alcohol withdrawal seizures, alcohol withdrawal syndrome, panic attacks/anxiety, history of pancreatitis, polysubstance abuse, GERD, tourette's and SVT presents with concern for abdominal pain and hematemesis. Patient reports for the last 3 days has had epigastric abdominal pain with associated nausea vomiting, has been drinking large quantities of alcohol, not been taking home medications. Pt alcohol levels upon admission were at 0.4, pt mother requesting detox. Patient recently discharged 11/27 from [facility] for EtOH withdrawal, pancreatitis. At that time patient reported drinking 1 bottle or a fifth of vodka daily. Psychiatric team consulted for history of depression. GI following; EGD done 12/14 showed grade D esophagitis, portal hypertensive gastropathy, moderate hiatal hernia, gastritis. Nutrition Assessment: Patient currently on a Regular diet with Vanilla Ensure + TID. Patient reports a good appetite since being admitted. States that prior to admission was only eating 1 meal per week, but drank Ensure BID. States that he never felt hungry because he was always drinking. RD observed breakfast tray [id number]% intake. Pt reports enjoying Vanilla Ensure and would like to keep them coming while admitted. Reports UBW 260#, with no recent weight changes. CBW via bedscale 256#. Denies n/v/d/c, chewing or swallowing issues. Estimated Daily Nutrient Needs: Energy Requirements Based On: Kcal/kg Weight Used for Energy Requirements: [place] Weight for Energy Calculation (kg): 73 kg Total Energy Requirements (kcals/day): 3574-8333 kcal/day (25-30) Weight Used for Protein Requirements: [place] Weight in Kg Used for Protein Requirements: 73 kg Estimated Total Protein (g/day): 80-95 g/day (1.1-1.3) Estimated Daily Total Fluid (ml/day): 3711-9037 ml/day Nutrition Related Findings: Froylan: 19. I&O: +200. Labs: BUN 4, Cr 0.61, glucose 101, AST 84, ALT 80, ethanol 0.435, A1c 5.7%. Meds: Prostiq, Folvite, Protonix, Vit B1 Wound Type: None Current Nutrition Therapies: Adult diet Regular Current Oral Intake Average Meal Intake: 26-50%, 76-100% Average Supplements Intake: Unable to assess Anthropometric Measures: Height: 177.8 cm (5' 10) Current Body Weight: 116 kg (256 lb) (12/16/23) Weight Source: Bed Scale Admission Body Weight: 114 kg (252 lb) Usual Body Weight: 118 kg (260 lb) % Weight Change (Calculated): -1.5 BMI (kg/m2) (Calculated): 36.7 Weight Adjustment For: No Adjustment BMI Categories: Obese Class 2 (BMI 35.0 -39.9) Nutrition Diagnosis: Inadequate protein-energy intake, In context of social or environmental circumstances related to altered GI function as evidenced by nausea, vomiting, poor intake prior to admission Nutrition Interventions: Nutrition Education/Counseling: No recommendation at this time Coordination of Nutrition Care: Continue to monitor while inpatient Goals: Goals: Meet at least 75% of estimated needs, by next RD assessment Nutrition Monitoring and Evaluation: Behavioral-Environmental Outcomes: None Identified Food/Nutrient Intake Outcomes: Food and Nutrient Intake, Supplement Intake Physical Signs/Symptoms Outcomes: Biochemical Data, Chewing or Swallowing, GI Status, Nausea or Vomiting, Skin, Weight, Nutrition Focused Physical Findings, Hemodynamic Status, Fluid Status or Edema Discharge Planning: Too soon to determine Lizeth Randall RD Contact: *[phone] * Stone Ramsey MD - 12/16/2023 10:24 AM EST Chief complaint Chief Complaint Patient presents with Alcohol Intoxication Brought in by his mother from home. He was recently at [facility] for some time. They discontinued his psych meds due to pancreatitis (ETOH induced). Upon arrival to the room he was not answering questionsbut then was able to do so. He states he does have hallucinations sometimes but denies SI/HI. Is complaining of abdominal pain 11/18. Was having nausea and vomiting in triage and earlier this morning. Pancreatitis Seen for follow up of substance dependence and use and to monitor withdrawals S: Patient seen and examined. Overall symptoms improving. REVIEW OF SYMPTOMS: Patient denies CP or SOB.Denies audio-, visual or tactile hallucinations. Denies dizziness or visual changes. Denies acute pain. Denies rhinorrhea, lacrimation, cough or sore throat. No difficulty ambulating, urinating, swallowing. Denies rash O: Vitals: 12/16/23 0747 BP: Pulse: 75 Resp: 16 Temp: 36.9 C (98.5 F) SpO2: 96% Patient seen and examined. Alert and oriented x 3. NAD. Head: NCAT. Skin: warm, dry CNII-XII are grossly intact. And symmetrical Sensation appears to be intact in distal extremities and Gait stable. Insight and judgement are fair. Denies suicidal or homocidal ideation. Cognition intact. Denies audio, visual or tactile hallucinations. Not responding to internal stimuli, good eye contact. Recent Results (from the past 24 hours) Hemoglobin and hematocrit, blood Collection Time: 12/16/23 1:58 AM Result Value Ref Range Hemoglobin 12.1 (L) 13.0 - 18.0 g/dL Hematocrit 37.4 (L) 40.0 - 52.0 % Hepatic function panel Collection Time: 12/16/23 1:58 AM Result Value Ref Range BILIRUBIN, TOTAL 1.0 0.2 - 1.3 mg/dL BILIRUBIN, DIRECT 0.0 0.0 - 0.3 mg/dL ALKALINE PHOSPHATASE 111 38 - 126 U/L AST (SGOT) 84 (H) 15 - 46 U/L ALT 80 (H) 0 - 49 U/L ALBUMIN 3.9 3.5 - 5.0 g/dL TOTAL PROTEIN 6.7 6.3 - 8.2 g/dL Assessment/Plan: alcohol use disorder severe with withdrawal Day # 3 of no use Evaluated the patient ciwa score and is low, and will adjust the phenobarb according to the currentsymptoms/signs continue to monitor and participate in the unit acitivities Patient is stable Estimate need 1-2 extra days of detox recommend follow up after discharge per MARIAN Ramsey MD, MD Addiction Medicine 12/16/2023 at 10:24 AM * Maxwell Esposito MD - 12/16/2023 8:41 AM EST Hospitalist Progress Note 12/16/2023 8:41 AM [phone]: Please page me for patient care issues. [phone]: Please page [facility] night Hospitalist for any issues. Subjective: Admit Date: 12/13/2023 PCP: Tam Hughes, Room#: N3-357/N3-357 A Interval History: Patient seen and examined 38-year-old male past medical history of alcohol use disorder, alcohol withdrawal seizure, pancreatitis, GERD, hypertension, SVT, smoking history, depression, admitted in November 2023 at [facility] following pancreatitis/abnormal LFT, hepatitis panel negative, right upper quadrant ultrasonogram showed severe hepatic steatosis, echo at the time showed EF normal. Psychiatric medication was discontinued due to abnormal LFT during last admission. Patient denies any abdominal pain, nausea, vomiting No chest pain, shortness of breath No fever spike noted Lab data's / Imaging studies reviewed LFT panel reviewed, hemoglobin today 12.1 Past medical history : Past Medical History: Diagnosis Date Alcohol withdrawal syndrome without complication (HCC) 06/27/2022 Alcohol withdrawal with inpatient treatment, uncomplicated (HCC) 03/15/2022 GERD (gastroesophageal reflux disease) History of pancreatitis 01/07/2023 Hypertension Pancreatitis Seizures (HCC) SVT (supraventricular tachycardia) (HCC) Tourette syndrome Adult diet Regular @[id number]@ Medications: desvenlafaxine, 50 mg, Oral, Daily folic acid, 1 mg, Oral, Daily melatonin, 5 mg, Oral, Nightly metoprolol succinate XL, 50 mg, Oral, Daily pantoprazole, 40 mg, Oral, BID AC PHENobarbital, 64.8 mg, Oral, Q4H Followed by PHENobarbital, 32.4 mg, Oral, Q4H Followed by [START ON 12/17/2023] PHENobarbital, 16.2 mg, Oral, Q4H risperiDONE, 0.5 mg, Oral, Nightly thiamine, 100 mg, Oral, Daily LABS: CBC: Recent Labs 12/13/23 1159 12/14/23 1640 12/15/23 0227 12/16/23 0158 WBC 12.1* -- 3.9 -- RBC 4.65 -- 3.65* -- HGB 14.3 12.6* 11.3* 12.1* HCT 43.7 38.1* 34.1* 37.4* MCV 94.0 -- 93.4 -- RDW 14.4 -- 13.9 -- PLT 423 -- 246 -- BMP: Recent Labs 12/13/23 1242 12/13/23 2325 12/15/23226 NA 145 145 136 K 4.0 3.9 3.5 CL 103 106 104 CO2 20* 22 22 BUN 5* 6* 4* CREATININE 0.60* 0.71 0.61* GLUCOSE 116* 110* 101* CALCIUM 9.5 8.9 9.1 ANIONGAP 23* 16* 10 LIVER PROFILE: Recent Labs 12/13/23 1242 12/15/2322612/16/23 0158 AST 186* 70* 84* ALT 141* 81* 80* BILITOT 0.9 1.3 1.0 ALKPHOS 171* 116 111 PROT 8.3* 6.5 6.7 PT/INR: No results for input(s): PROTIME, INR in the last 72 hours. CARDIAC ENZYMES: No results for input(s): TROPONINI in the last 72 hours. Procalcitonin: No results found for: PROCAL @RISRSLTSPECIALTY@ I reviewed: [x] laboratory results [x] radiographic results At the time of today's encounter. Pt was informed about the results. Objective: Vitals: BP 152/95 Pulse 75 Temp 36.9 C (98.5 F) (Temporal) Resp 16 Ht 5' 10 (1.778 m) Wt251 lb 5.2 oz (114 kg) SpO2 96% BMI 36.06 kg/m Pulse Ox: SpO2 Av.7 % Min: 96 % Max: 98 % Supplemental O2: General appearance: No apparent distress, HEENT: Eyes: No scleral icterus No pallor Oral: Tongue is semi-moist Cardiovascular: S1S2 heard, RRR Respiratory: Clear to auscultation bilaterally anteriorly Abdomen: Soft, nontender, non-distended, no mass palpable with normal bowel sounds. Neurology- Awake alert, answering questions No focal neurology noted Extremity- no significant peripheral edema both lower extremities Assessment Acute problems--- Alcohol use disorder, admitted for detox Hematemesis, status post EGD -grade D esophagitis, portal hypertensive gastropathy, moderate hiatalhernia, gastritis done on 12/14/2023 Abnormal LFT, previous hepatitis panel was negative Leukocytosis, resolved Sinus tachycardia on admission, resolved History of depression Chronic issue-- Alcohol withdrawal seizure in past Pancreatitis GERD Hypertension Chronic smoking history Depression SVT Class III obesity Plan Continue thiamine/folic acid Tapering dose of phenobarbital per addiction medicine team Continue Protonix 40 mg twice daily Seen by psychiatric team, continue Pristiq/risperidone for depression SCDs for DVT prophylaxis Continue rest of medication as ordered Patient was informed about all work up and treatment plan Discussed with nursing staff/TCC Toxic drug monitoring/narrow therapeutic index drug monitoring : # Drug name : None # Route administered : # Method of monitoring : Extended Emergency Contact Information Primary Emergency Contact: Summer Valdivia Mobile Relation: Mother Advance Directive: Full Code Discharge planning: Anticipated discharge on Thursday after completing tapering dose of phenobarbital. NOTE: This report was transcribed using voice recognition software. Every effort was made to ensureaccuracy; however, inadvertent computerized home improvement installer errors may be present. Maxwell Esposito MD Division of Hospitalist Medicine Acute [facility] PAGER: [facility] chat * Fatuma Hess APRN - COREMAKER MACHINE - 12/15/2023 1:42 PM EST [facility] Department of Psychiatry Nurse Practitioner Note *Please contact [employer] Manager Psychiatry Listed in Epic On-Call Finder Thu-Thu: From 1700 - 0800 and on Thursday & Thursday* TODAY'S DATE: 12/15/23 ADMISSION DATE: 12/13/2023 Hospital Day: 2 IDENTIFYING INFORMATION Name: Roro Valdivia : 1985 Consulting Practitioner: SEBASTIEN Zambrano SUBJECTIVE: CHIEF COMPLAINT: CC: Chief Complaint Patient presents with Alcohol Intoxication Brought in by his mother from home. He was recently at [facility] for some time. They discontinued his psych meds due to pancreatitis (ETOH induced). Upon arrival to the room he was not answering questionsbut then was able to do so. He states he does have hallucinations sometimes but denies SI/HI. Is complaining of abdominal pain 11/18. Was having nausea and vomiting in triage and earlier this morning. Pancreatitis Principal Problem: Alcoholic intoxication without complication (CMS/HCC) (HCC) For every encounter with this patient, if applicable this Provider wore appropriate PPE including but not limited to standard precautions, N95 mask, surgical mask, gown and/or protective eyewear. Chart reviewed, including notes, labs, imagining, allergies, and medications, all pertinent information discussed with medical staff, nursing, social work, and patient/family if necessary. HISTORY OF PRESENT ILLNESS: HPI: In brief, Roro Valdivia is a 38 y.o., [facility]HCC[facility]23. PMH of alcohol withdrawal seizures, alcohol withdrawal syndrome, panic attacks/anxiety, history of pancreatitis, polysubstance abuse, GERD, tourette's and SVT. Pt with recent admission to [facility] (11/16- 11/27) withelevated LFTs, at that time pt wanted to leave and refused speaking with psychiatry so he agreed tohold all of his mental health medications until he spoke with his OP psychiatrist with addiction medicine per documentation. During that hospitalization pt requested to be taken off Cymbalta and restarted on Effexor.He was instructed to follow up with OP provider on the Weds following discharge. Psychiatry consulted for depression. Interval History: pt seen in follow up for depression and anxiety. The patient was seen and examined. The chart was reviewed. On approach pt resting in bed, pt states I don't think the medications are strong enough, I still feel depressed. Denies SE. Educated pt that medications take 4-6 weeks toknow effects. Discussed importance of follow up OP and establishing care so that medications can bemonitored and adjusted. Pt states, alcohol works faster, I will just drink the next time I have a panic attack, Xanax works too, I use to take Xanax. Discussed OP follow up with [facility], states he canno longer see Dr. Escobar due to multiple no shows, has scheduled appt with Dr. Escobar tomorrow 12/15 @ 1500. Discussed importance of compliance. Pt denies any suicidal/homicidal ideation, intent or plan. No dontrell noted and no s/s of psychosis. Tolerating Rx Pristiq and Risperidone without side effects. REVIEW OF SYSTEMS: MEDICAL REVIEW OF SYMPTOMS: Review of Systems Constitutional: Positive for appetite change and fatigue. Negative for diaphoresis. Cardiovascular: Negative. Gastrointestinal: Negative for diarrhea, nausea and vomiting. Musculoskeletal: Negative. Skin: Negative. Neurological: Negative for tremors and seizures. Psychiatric/Behavioral: Positive for sleep disturbance. Negative for hallucinations and suicidal ideas. The patient is nervous/anxious. All other systems reviewed and are negative. Medications: Current Facility Administered Medications: Current Facility-Administered Medications: cloNIDine (Catapres) tablet 0.1 mg, 0.1 mg, Oral, q8h PRN, Dov Vanegas MD desvenlafaxine (Pristiq) 24 hr tablet 50 mg, 50 mg, Oral, Daily, Fatuma Hess, CARDIOTHORACIC ICU RN - COREMAKER MACHINE, 50 mgat 12/15/23 0940 doxepin (SINEquan) capsule 10 mg, 10 mg, Oral, Nightly, Dov Vanegas MD, 10 mg at 12/14/232015 folic acid (Folvite) tablet 1 mg, 1 mg, Oral, Daily, Tania Payne DO, 1 mg at 12/15/23 0937 labetalol (Normodyne,Trandate) injection 10 mg, 10 mg, IntraVENous, q6h PRN, Ant Carty MD LORazepam (Ativan) tablet 1 mg, 1 mg, Oral, q1h PRN OR LORazepam (Ativan) injection 1 mg, 1 mg,IntraVENous, q1h PRN OR LORazepam (Ativan) tablet 2 mg, 2 mg, Oral, q1h PRN OR LORazepam (Ativan) injection 2 mg, 2 mg, IntraVENous, q1h PRN, 2 mg at 12/14/23 0819 OR [DISCONTINUED] LORazepam (Ativan) tablet 3 mg, 3 mg, Oral, q1h PRN OR [DISCONTINUED] LORazepam (Ativan) injection 3 mg, 3 mg, IntraVENous, q1h PRN, 3 mg at 12/13/23 2251 OR [DISCONTINUED] LORazepam (Ativan) tablet 4 mg, 4 mg, Oral, q1h PRN OR [DISCONTINUED] LORazepam (Ativan) injection 4 mg, 4 mg, IntraVENous, q1h PRN, Tania Payne DO LORazepam (Ativan) tablet 2 mg, 2 mg, Oral, q4h PRN, Ant Carty MD melatonin tablet 5 mg, 5 mg, Oral, Nightly, Dov Vanegas MD, 5 mg at 12/14/232006 methocarbamol (Robaxin) tablet 1,000 mg, 1,000 mg, Oral, q6h PRN, Dov Vanegas MD metoprolol succinate XL (Toprol-XL) 24 hr tablet 50 mg, 50 mg, Oral, Daily, Ant Carty MD, 50 mg at 12/15/23 0937 naloxone (Narcan) injection 0.4 mg, 0.4 mg, IntraVENous, q5 min PRN, Ant Carty MD ondansetron ODT (Zofran-ODT) disintegrating tablet 4 mg, 4 mg, Oral, q8h PRN, Dov Vanegas MD oxyCODONE (Roxicodone) immediate release tablet 5 mg, 5 mg, Oral, q6h PRN, Ant Carty MD pantoprazole (ProtoNix) EC tablet 40 mg, 40 mg, Oral, BID AC, Maxwell Esposito MD, 40 mg at 12/15/23 0937 PHENobarbital tablet 64.8 mg, 64.8 mg, Oral, Q4H FOLLOWED BY [START ON 12/16/2023] PHENobarbitaltablet 32.4 mg, 32.4 mg, Oral, Q4H FOLLOWED BY [START ON 12/17/2023] PHENobarbital tablet 16.2 mg, 16.2 mg, Oral, Q4H, Ron Fonseca, CARDIOTHORACIC ICU RN - [employer]ER MACHINE polyethylene glycol (PEG) 3350 (Miralax) packet 17 g, 17 g, Oral, Daily PRN, Ant Carty MD risperiDONE (RisperDAL) tablet 0.5 mg, 0.5 mg, Oral, Nightly, Fatuma Hess, CARDIOTHORACIC ICU RN - [employer]ACHINE, 0.5 mg at 12/14/232014 thiamine (Vitamin B1) tablet 100 mg, 100 mg, Oral, Daily, Tania Payne, DO, 100 mg at 12/15/23 0937 Medications Prior to Admission: Current Outpatient Medications Medication Instructions cloNIDine (CATAPRES) 0.1 mg, Oral, 3 times daily hydrOXYzine HCl (ATARAX) 50 mg, Oral, 2 times daily PRN melatonin 5 mg, Oral, Nightly PRN metoprolol succinate XL (TOPROL-XL) 50 mg, Oral, Daily, Do not crush or chew. omeprazole (PRILOSEC) 20 mg, Oral, Daily before breakfast, Do not crush or chew. Allergies: No Known Allergies History: Past Medical and Psychiatric History: Past Medical History: Diagnosis Date Alcohol withdrawal syndrome without complication ([facility]) 06/27/2022 Alcohol withdrawal with inpatient treatment, uncomplicated ([facility]) 03/15/2022 GERD (gastroesophageal reflux disease) History of pancreatitis 01/07/2023 Hypertension Pancreatitis Seizures ([facility]) SVT (supraventricular tachycardia) ([facility]) Tourette syndrome Family Psychiatric and Medical History: Family History Problem Relation Name Age of Onset No Known Problems Mother No Known Problems Father PAST SURGICAL HISTORY Past Surgical History: Procedure Laterality Date APPENDECTOMY Social History: Social Connections: Socially Isolated (12/14/2023) Social Connection and Isolation Panel [NHANES] Frequency of Communication with Friends and Family: Once a week Frequency of Social Gatherings with Friends and Family: More than three times a week Attends [employer] Services: Never Active Member of Clubs or Organizations: No Attends Club or Organization Meetings: Never Marital Status: Never Social Drivers of Health Tobacco Use: High Risk (12/14/2023) Patient History Smoking Tobacco Use: Every Day Smokeless Tobacco Use: Never Passive Exposure: Not on file Alcohol Use: Alcohol Misuse (12/14/2023) AUDIT-C Frequency of Alcohol Consumption: 4 or more times a week Average Number of Drinks: 7 to 9 Frequency of Binge Drinking: Daily or almost daily Financial Resource Strain: Medium Risk (12/14/2023) Overall Financial Resource Strain (CARDIA) Difficulty of Paying Living Expenses: Somewhat hard Food Insecurity: No Food Insecurity (12/14/2023) Hunger Vital Sign Worried About Running Out of Food in the Last Year: Never true Ran Out of Food in the Last Year: Never true Recent Concern: Food Insecurity - Food Insecurity Present (10/16/2023) Hunger Vital Sign Worried About Running Out of Food in the Last Year: Often true Ran Out of Food in the Last Year: Often true Transportation Needs: Unmet Transportation Needs (12/14/2023) PRAPARE - Transportation Lack of Transportation (Medical): Yes Lack of Transportation (Non-Medical): Yes Physical Activity: Inactive (12/14/2023) Exercise Vital Sign Days of Exercise per Week: 0 days Minutes of Exercise per Session: 0 min Stress: Stress Concern Present (12/14/2023) [employer] - Occupational Stress Questionnaire Feeling of Stress : Very much Social Connections: Socially Isolated (12/14/2023) Social Connection and Isolation Panel [NHANES] Frequency of Communication with Friends and Family: Once a week Frequency of Social Gatherings with Friends and Family: More than three times a week Attends [employer] Services: Never Active Member of Clubs or Organizations: No Attends Club or Organization Meetings: Never Marital Status: Never Intimate Partner Violence: Not At Risk (12/14/2023) Humiliation, Afraid, Rape, and Kick questionnaire Fear of Current or Ex-Partner: No Emotionally Abused: No Physically Abused: No Sexually Abused: No Depression: Moderately severe depression (08/11/2023) PHQ-9 PHQ-9 Score: 15 Housing Stability: High Risk (12/14/2023) Housing Stability Vital Sign Unable to Pay for Housing in the Last Year: Patient declined Number of Times Moved in the Last Year: Not on file Homeless in the Last Year: Yes Utilities: Not At Risk (12/14/2023) [facility] Utilities Threatened with loss of utilities: No Health Literacy: Inadequate Health Literacy (12/14/2023) B1300 Health Literacy Frequency of need for help with medical instructions: Sometimes OBJECTIVE: PHYSICAL EXAM: Vitals: Vitals: 12/14/23 2350 12/15/23 0010 12/15/23 0318 12/15/23 0734 BP: 141/90 119/70 124/80 147/91 BP Location: Right arm Right arm Right arm Patient Position: Lying Lying Sitting Pulse: 63 88 87 78 Resp: 16 Temp: 36.6 C (97.8 F) 36.5 C (97.7 F) 36.3 C (97.3 F) 36.4 C (97.5 F) TempSrc: Temporal Temporal Temporal Temporal SpO2: 95% 96% 96% 96% Weight: Height: Physical Exam: Physical Exam Vitals and nursing note reviewed. Constitutional: Appearance: He is not diaphoretic. HENT: Mouth/Throat: Mouth: Mucous membranes are dry. Cardiovascular: Rate and Rhythm: Normal rate. Pulmonary: Effort: Pulmonary effort is normal. Musculoskeletal: General: Normal range of motion. Skin: General: Skin is dry. Coloration: Skin is not pale. Neurological: Mental Status: He is alert and oriented to person, place, and time. Psychiatric: Attention and Perception: He does not perceive auditory or visual hallucinations. Mood and Affect: Mood is anxious and depressed. Affect is flat. Speech: Speech normal. Behavior: Behavior normal. Behavior is cooperative. Thought Content: Thought content normal. Thought content does not include homicidal or suicidal ideation. Judgment: Judgment normal. Labs: I reviewed pertinent laboratory results, radiographic results, Most recent EKG, and Other Clinical Notes at the time of today's encounter. Recent Results (from the past 72 hours) SARS-CoV-2 Antigen Collection Time: 12/13/23 11:59 AM Specimen: Nose; Swab Result Value Ref Range SARS-CoV-2 Antigen Negative Negative CBC auto differential Collection Time: 12/13/23 11:59 AM Result Value Ref Range Auto WBC 12.1 (H) 3.6 - 10.7 10*3/uL RBC 4.65 4.40 - 5.90 10*6/uL Hemoglobin 14.3 13.0 - 18.0 g/dL Hematocrit 43.7 40.0 - 52.0 % MCV 94.0 77.0 - 99.0 fL MCH 30.8 26.0 - 34.0 pg MCHC 32.7 30.5 - 36.0 % RDW 14.4 11.5 - 15.0 % Platelets 423 140 - 440 10*3/uL MPV 10.2 9.0 - 12.7 fL Man Differential Collection Time: 12/13/23 11:59 AM Result Value Ref Range Adjusted WBC 12.1 (H) 3.6 - 10.7 10*3/uL Neutrophils % 29 (L) 38 - 82 % Lymphocytes % 67 (H) 15 - 45 % Monocytes % 3 (L) 5 - 13 % Basophils % 1 0 - 2 % Absolute Neutrophil Count 3.5 1.8 - 7.0 10*3/uL Lymphocytes Absolute 8.1 (H) 1.0 - 4.3 10*3/uL Monocytes Absolute 0.4 0.0 - 0.9 10*3/uL Basophils Absolute 0.1 0.0 - 0.2 10*3/uL RBC Morphology Normal WBC Morphology Normal PLT Morphology Normal Total Counted 100 Neutrophils Manual 29 Lymphocytes Manual 67 Monocytes Manual 3 Basophils Manual 1 Differential Method Manual differential performed Drug screen panel, emergency Collection Time: 12/13/23 12:00 PM Result Value Ref Range AMPHETAMINE SCREEN Negative BARBITURATES SCREEN Negative BENZODIAZEPINE SCREEN Negative COCAINE METAB. SCREEN Negative METHADONE SCREEN Negative OPIATES SCREEN Negative OXYCODONE SCREEN Negative PHENCYCLIDINE SCREEN Negative Urinalysis with reflex microscopic Collection Time: 12/13/23 12:00 PM Result Value Ref Range Color, Urine Light Yellow Lt. Yellow Clarity, Urine Clear Clear pH, Urine 6.5 5.0 - 8.0 pH Leukocytes, Urine Negative Negative Teofilo/uL Nitrite, Urine Negative Negative Protein, Urine Negative Negative mg/dL Glucose, Urine Normal Normal (<70) mg/dL Bilirubin, Urine Negative Negative mg/dL Ketones, Urine Negative Negative mg/dL Urobilinogen, Urine Normal Normal (0-1) mg/dL Blood, Urine 0.03 (A) Negative mg/dL RBC, Urine 0-2 0 - 2 /HPF WBC, Urine 0-2 0 - 5 /HPF Squamous Epithelial, Urine Negative 3 - 5 /HPF Bacteria, Urine Few (A) Negative /HPF SPECIFIC GRAVITY OF URINE (NUMERIC) 1.004 (L) 1.005 - 1.030 Ethanol Collection Time: 12/13/23 12:42 PM Result Value Ref Range ETHANOL IN SER/PLAS 0.435 (HH) 0.000 - 0.010 g/dL Comprehensive metabolic panel Collection Time: 12/13/23 12:42 PM Result Value Ref Range SODIUM 145 135 - 145 mmol/L POTASSIUM 4.0 3.5 - 5.1 mmol/L CHLORIDE 103 98 - 107 mmol/L CARBON DIOXIDE 20 (L) 22 - 30 mmol/L ANION GAP 23 (H) 3 - 13 mmol/L UREA NITROGEN 5 (L) 9 - 20 mg/dL CREATININE 0.60 (L) 0.66 - 1.25 mg/dL GLUCOSE 116 (H) 70 - 100 mg/dL CALCIUM 9.5 8.4 - 10.4 mg/dL AST (SGOT) 186 (H) 15 - 46 U/L ALT 141 (H) 0 - 49 U/L ALKALINE PHOSPHATASE 171 (H) 38 - 126 U/L ALBUMIN 4.9 3.5 - 5.0 g/dL BILIRUBIN, TOTAL 0.9 0.2 - 1.3 mg/dL TOTAL PROTEIN 8.3 (H) 6.3 - 8.2 g/dL eGFR >90.0 >60.0 mL/min/1.73m*2 Lipase Collection Time: 12/13/23 12:42 PM Result Value Ref Range LIPASE 78 23 - 300 U/L ECG 12 lead Collection Time: 12/13/23 12:42 PM Result Value Ref Range Heart Rate 91 bpm QRSD Interval 97 ms QT Interval 373 ms QTC Interval 459 ms P [place] 53 degrees QRS [place] -11 degrees T Wave [place] -5 degrees ME Interval 148 ms Basic metabolic panel Collection Time: 12/13/23 11:25 PM Result Value Ref Range SODIUM 145 135 - 145 mmol/L POTASSIUM 3.9 3.5 - 5.1 mmol/L CHLORIDE 106 98 - 107 mmol/L CARBON DIOXIDE 22 22 - 30 mmol/L UREA NITROGEN 6 (L) 9 - 20 mg/dL CREATININE 0.71 0.66 - 1.25 mg/dL GLUCOSE 110 (H) 70 - 100 mg/dL CALCIUM 8.9 8.4 - 10.4 mg/dL ANION GAP 16 (H) 3 - 13 mmol/L eGFR >90.0 >60.0 mL/min/1.73m*2 Hemoglobin and hematocrit, blood Collection Time: 12/14/23 4:40 PM Result Value Ref Range Hemoglobin 12.6 (L) 13.0 - 18.0 g/dL Hematocrit 38.1 (L) 40.0 - 52.0 % CBC Collection Time: 11/05/24 2:27 AM Result Value Ref Range Auto WBC 3.9 3.6 - 10.7 10*3/uL RBC 3.65 (L) 4.40 - 5.90 10*6/uL Hemoglobin 11.3 (L) 13.0 - 18.0 g/dL Hematocrit 34.1 (L) 40.0 - 52.0 % MCV 93.4 77.0 - 99.0 fL MCH 31.0 26.0 - 34.0 pg MCHC 33.1 30.5 - 36.0 % RDW 13.9 11.5 - 15.0 % Platelets 246 140 - 440 10*3/uL MPV 10.1 9.0 - 12.7 fL Comprehensive metabolic panel Collection Time: 12/15/23 2:27 AM Result Value Ref Range SODIUM 136 135 - 145 mmol/L POTASSIUM 3.5 3.5 - 5.1 mmol/L CHLORIDE 104 98 - 107 mmol/L CARBON DIOXIDE 22 22 - 30 mmol/L ANION GAP 10 3 - 13 mmol/L UREA NITROGEN 4 (L) 9 - 20 mg/dL CREATININE 0.61 (L) 0.66 - 1.25 mg/dL GLUCOSE 101 (H) 70 - 100 mg/dL CALCIUM 9.1 8.4 - 10.4 mg/dL AST (SGOT) 70 (H) 15 - 46 U/L ALT 81 (H) 0 - 49 U/L ALKALINE PHOSPHATASE 116 38 - 126 U/L ALBUMIN 3.7 3.5 - 5.0 g/dL BILIRUBIN, TOTAL 1.3 0.2 - 1.3 mg/dL TOTAL PROTEIN 6.5 6.3 - 8.2 g/dL eGFR >90.0 >60.0 mL/min/1.73m*2 Mental Status Exam: MSE: Level of consciousness: Alert Orientation: Person Appearance: Appropriate ; appears stated age Gait: Did Not Observe Behavior: Cooperative Eye contact: good Motor Activity: WNL Speech: WNL Mood: Depressed/Sad and Anxious Affect: Mood Congruent Thought Process: Organized Thought Content: Denies Suicidal/Homicidal Ideation, Intent, or Plan Thought Perception: WNL Fund of Knowledge: appropriate for education level Attention/Concentration: WNL Cognition: WNL Memory: WNL Insight: Poor Judgement: Poor ASSESSMENT: Patient Active Problem List Diagnosis GERD (gastroesophageal reflux disease) Hypertension SVT (supraventricular tachycardia) (HCC) Tourette syndrome Alcohol induced acute pancreatitis without necrosis or infection Polysubstance use disorder Cocaine abuse (HCC) Elevated liver enzymes Panic disorder Alcohol abuse Benzodiazepine withdrawal with complication (HCC) Opioid withdrawal (HCC) Amphetamine withdrawal (HCC) Pneumonia Palpitations Other specified abnormal findings of blood chemistry Dermatitis Depression Positive 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 History of pancreatitis Severe alcohol use disorder (HCC) Severe opioid use disorder on maintenance therapy (HCC) Severe episode of recurrent major depressive disorder, without psychotic features (HCC) Acute recurrent pancreatitis Acute pancreatitis without infection or necrosis Moderate malnutrition (CMS/HCC) (HCC) Alcoholic intoxication without complication (CMS/HCC) (HCC) Hematemesis of unknown etiology 1. Alcoholic intoxication without complication (CMS/HCC) (HCC) 2. Hematemesis of unknown etiology Mood Disorder, unspecified Polysubstance Use Disorder PLAN: RECOMMENDATIONS: Disposition: Pt is accepting of medical care, denies suicidal/homicidal ideation, intent or plan, and no noted dontrell or psychosis. Pt does not meet criteria for inpatient psychiatric hospitalization. Medications: continue risperidone and Pristiq as currently prescribed pt may dc home with 30 day supply. Labs: per primary Delirium precautions: Avoid sedating/anticholinergic medications, encourage sleep hygiene, minimizebarriers to nutrition, optimize sensory input and access to assistive devices (dentures, glasses, etc) where indicated, encourage time up in chair as able, D/c Floyd, restraints, IV lines, as able and reserve agitation PRNs for instances where patient is danger to self/others/treatment. Recommendations shared with primary team. Follow up: peripherally as able, pt provided information to follow OP with [facility] On this day, 12/15/23, I spent total time 35 minutes preparing to see the pt, reviewing previous notes, obtaining/reviewing separately obtained, history, test results, [facility], counseling/educating the patient/family/caregiver and face to face with the patient discussing the diagnosis, current symptom burden, medication side effects, medication change options, and importance of compliance with the treatment plan as well as documenting all relevant and pertinent clinical information in the patient's electronic record on the day of the visit. * Seema Lizama - 12/15/2023 11:18 AM EST Nutrition rescreen completed. Patient referred to the Dietitian due to poor PO intake. Seema Lizama, DT * Maxwell Esposito MD - 12/15/2023 7:47 AM EST Hospitalist Progress Note 12/15/2023 7:47 AM [phone]: Please page me for patient care issues. [phone]: Please page IMS night Hospitalist for any issues. Subjective: Admit Date: 12/13/2023 PCP: Tam Hughes, DO Room#: N3-357/[id number] A Interval History: Patient seen and examined 38-year-old male past medical history of alcohol use disorder, alcohol withdrawal seizure, pancreatitis, GERD, hypertension, SVT, smoking history, depression, admitted in November 2023 at [facility] following pancreatitis/abnormal LFT, hepatitis panel negative, right upper quadrant ultrasonogram showed severe hepatic steatosis, echo at the time showed EF normal. Psychiatric medication was discontinued due to abnormal LFT during last admission. Patient feeling better today Denies any further episode of hematemesis Abdominal pain is improving No nausea, vomiting, chest pain, shortness of breath No fever spike noted EGD done yesterday showed grade D esophagitis, portal hypertensive gastropathy, moderate hiatal hernia, gastritis Lab data's / Imaging studies reviewed Potassium borderline at 3.5, hemoglobin 11.3, transaminitis improving Past medical history : Past Medical History: Diagnosis Date Alcohol withdrawal syndrome without complication (HCC) 06/27/2022 Alcohol withdrawal with inpatient treatment, uncomplicated (HCC) 03/15/2022 GERD (gastroesophageal reflux disease) History of pancreatitis 01/07/2023 Hypertension Pancreatitis Seizures (HCC) SVT (supraventricular tachycardia) (HCC) Tourette syndrome Adult diet Regular @[id number]@ Medications: desvenlafaxine, 50 mg, Oral, Daily doxepin, 10 mg, Oral, Nightly folic acid, 1 mg, Oral, Daily melatonin, 5 mg, Oral, Nightly metoprolol succinate XL, 50 mg, Oral, Daily pantoprazole, 40 mg, Oral, BID AC PHENobarbital, 97.2 mg, Oral, Q4H potassium chloride CR, 20 mEq, Oral, Once risperiDONE, 0.5 mg, Oral, Nightly thiamine, 100 mg, Oral, Daily LABS: CBC: Recent Labs 12/13/23 1159 12/14/23 1640 12/15/237 WBC 12.1* -- 3.9 RBC 4.65 -- 3.65* HGB 14.3 12.6* 11.3* HCT 43.7 38.1* 34.1* MCV 94.0 -- 93.4 RDW 14.4 -- 13.9 PLT 423 -- 246 BMP: Recent Labs 12/13/23 1242 12/13/23 2325 12/15/23226 NA 145 145 136 K 4.0 3.9 3.5 CL 103 106 104 CO2 20* 22 22 BUN 5* 6* 4* CREATININE 0.60* 0.71 0.61* GLUCOSE 116* 110* 101* CALCIUM 9.5 8.9 9.1 ANIONGAP 23* 16* 10 LIVER PROFILE: Recent Labs 12/13/23 1242 12/15/23226 AST 186* 70* ALT 141* 81* BILITOT 0.9 1.3 ALKPHOS 171* 116 PROT 8.3* 6.5 PT/INR: No results for input(s): PROTIME, INR in the last 72 hours. CARDIAC ENZYMES: No results for input(s): TROPONINI in the last 72 hours. Procalcitonin: No results found for: PROCAL @RISRSLTSPECIALTY@ I reviewed: [x] laboratory results [x] radiographic results At the time of today's encounter. Pt was informed about the results. Objective: Vitals: BP 147/91 (BP Location: Right arm, Patient Position: Sitting) Pulse 78 Temp 36.4 C (97.5 F) (Temporal) Resp 16 Ht 5' 10 (1.778 m) Wt 251 lb 5.2 oz (114 kg) SpO2 96% BMI 36.06 kg/m Pulse Ox: SpO2 Av.2 % Min: 94 % Max: 100 % Supplemental O2: General appearance: No apparent distress, HEENT: Eyes: No scleral icterus No pallor Oral: Tongue is semi-moist Cardiovascular: S1S2 heard, RRR Respiratory: Clear to auscultation bilaterally anteriorly Abdomen: Soft, mild epigastric tenderness noted, no guarding/rebound, non- distended, no mass palpable with normal bowel sounds. Neurology- Awake alert, answering questions No focal neurology noted Extremity- no significant peripheral edema both lower extremities Assessment Acute problems-- Alcohol use disorder, admitted for detox Hematemesis, status post EGD -grade D esophagitis, portal hypertensive gastropathy, moderate hiatalhernia, gastritis done on 12/14/2023 Abnormal LFT, previous hepatitis panel was negative Leukocytosis, resolved Sinus tachycardia on admission, resolved History of depression Chronic issue-- Alcohol withdrawal seizure in past Pancreatitis GERD Hypertension Chronic smoking history Depression SVT Class III obesity Plan Discontinue IV fluid Advance to regular diet Continue thiamine/folic acid, phenobarbital as ordered Addiction medicine team following Seen by GI team, recommendation noted Change IV to p.o. Protonix 40 mg twice daily Potassium level borderline, ordered 20 mEq of p.o. potassium today Seen by psychiatric team, started on Pristiq/risperidone for depression Continue current treatment for SVT/hypertension SCDs for DVT prophylaxis Continue rest of medication as ordered H&H, LFT panel in a.m. Patient was informed about all work up and treatment plan Discussed with nursing staff/TCC Toxic drug monitoring/narrow therapeutic index drug monitoring : # Drug name : None # Route administered : # Method of monitoring : Extended Emergency Contact Information Primary Emergency Contact: Summer Valdivia Mobile Relation: Mother Advance Directive: Full Code Discharge planning: Anticipated discharge in 1-2 days, pending improvement NOTE: This report was transcribed using voice recognition software. Every effort was made to ensureaccuracy; however, inadvertent computerized home improvement installer errors may be present. Maxwell Esposito MD Division of Hospitalist Medicine Acute Care [facility] PAGER: Epic chat * Ron Fonscea, JOSÉ ANTONIO - COREMAKER MACHINE - 12/14/2023 2:20 PM EST Patient off unit to endoscopy, will attempt to see patient tomorrow. Continue phenobarbital and Ativan as ordered. * Maxwell Esposito MD - 12/14/2023 9:40 AM EST Hospitalist Progress Note 12/14/2023 9:40 AM [phone]: Please page me for patient care issues. [phone]: Please page IMS night Hospitalist for any issues. Subjective: Admit Date: 12/13/2023 PCP: Tam Hughes, DO Room#: N3-357/N3-357 A Interval History: Patient seen and examined 38-year-old male past medical history of alcohol use disorder, alcohol withdrawal seizure, pancreatitis, GERD, hypertension, SVT, smoking history, depression, admitted in November 2023 at [facility] following pancreatitis/abnormal LFT, hepatitis panel negative, right upper quadrant ultrasonogram showed severe hepatic steatosis, echo at the time showed EF normal. Psychiatric medication was discontinued due to abnormal LFT during last admission. Patient mentioned that he has history of depression, psychiatric medication was discontinued last month following abnormal LFT at [facility]. He started drinking in excess since discharge from [facility]. Patient denies any suicidal ideation Admitted following alcohol intoxication, for detox. Had 3 episode of hematemesis yesterday. Complaining of epigastric abdominal pain No chest pain, shortness of breath, cough No fever, chills, melena Lab data's / Imaging studies reviewed CO2 of 20, improved to 22, anion gap on admission 23, improved to 16 ALP 171, AST 186, ALT 141, bilirubin 0.9 Lipase 78, WBC 12.1, urine analysis negative COVID test negative, ethanol 0.4, urine tox screen negative EKG reviewed showed sinus rhythm Past medical history : Past Medical History: Diagnosis Date Alcohol withdrawal syndrome without complication (HCC) 06/27/2022 Alcohol withdrawal with inpatient treatment, uncomplicated (HCC) 03/15/2022 GERD (gastroesophageal reflux disease) History of pancreatitis 01/07/2023 Hypertension Pancreatitis Seizures (HCC) SVT (supraventricular tachycardia) (HCC) Tourette syndrome Adult diet Clear liquid @[id number]@ Medications: sodium chloride, 100 mL/hr, Last Rate: 100 mL/hr (12/14/23 0819) doxepin, 10 mg, Oral, Nightly folic acid, 1 mg, Oral, Daily melatonin, 5 mg, Oral, Nightly metoprolol succinate XL, 50 mg, Oral, Daily pantoprazole (ProtoNix) 40 mg in sodium chloride (PF) 0.9 % 10 mL injection, 40 mg, IntraVENous, BID PHENobarbital, 97.2 mg, Oral, Q4H thiamine, 100 mg, Oral, Daily LABS: CBC: Recent Labs 12/13/23 1159 WBC 12.1* RBC 4.65 HGB 14.3 HCT 43.7 MCV 94.0 RDW 14.4 PLT 423 BMP: Recent Labs 12/13/23 1242 12/13/23 2325 NA 145 145 K 4.0 3.9 CL 103 106 CO2 20* 22 BUN 5* 6* CREATININE 0.60* 0.71 GLUCOSE 116* 110* CALCIUM 9.5 8.9 ANIONGAP 23* 16* LIVER PROFILE: Recent Labs 12/13/23 1242 AST 186* ALT 141* BILITOT 0.9 ALKPHOS 171* PROT 8.3* PT/INR: No results for input(s): PROTIME, INR in the last 72 hours. CARDIAC ENZYMES: No results for input(s): TROPONINI in the last 72 hours. Procalcitonin: No results found for: PROCAL @RISRSLTSPECIALTY@ I reviewed: [x] laboratory results [x] radiographic results At the time of today's encounter. Pt was informed about the results. Objective: Vitals: BP 160/96 (BP Location: Left arm, Patient Position: Sitting) Pulse 109 Temp 36.8 C (98.2 F) (Temporal) Resp 18 Ht 5' 10 (1.778 m) Wt 252 lb (114 kg) SpO2 96% BMI 36.16 kg/m Pulse Ox: SpO2 Av.3 % Min: 94 % Max: 100 % Supplemental O2: General appearance: No apparent distress, HEENT: Eyes: No scleral icterus No pallor Oral: Tongue is semi-moist Cardiovascular: S1S2 heard, RRR Respiratory: Clear to auscultation bilaterally anteriorly Decrease breath sound both bases posteriorly Abdomen: Soft, epigastric tenderness noted, no guarding/rebound, non-distended, no mass palpable with normal bowel sounds. Musculoskeletal: No obvious deformities seen Skin: No visible rashes or lesions. Neurology- Awake alert, answering questions No focal neurology noted Extremity- no significant peripheral edema both lower extremities Assessment Acute problems-- Alcohol use disorder, admitted for detox Hematemesis-rule out Leatha-Fang tear, rule out esophageal varices, rule out gastritis/PUD Epigastric abdominal pain, lipase normal, suspected gastritis/peptic ulcer disease Anion gap metabolic acidosis Abnormal LFT, previous hepatitis panel was negative Leukocytosis Sinus tachycardia on admission History of depression Chronic issue-- Alcohol withdrawal seizure in past Pancreatitis GERD Hypertension Chronic smoking history Depression SVT Plan Clear liquid diet Normal saline at 100 cc/h Thiamine/folic acid ordered Continue phenobarbital as ordered As needed IV Ativan Addiction medicine team consulted Monitor H&H Protonix 40 mg IV twice daily GI team consulted for evaluation Psychiatric team consulted for history of depression Continue current treatment for SVT/hypertension SCDs for DVT prophylaxis Continue rest of medication as ordered Labs ordered for AM Patient was informed about all work up and treatment plan Discussed with nursing staff Toxic drug monitoring/narrow therapeutic index drug monitoring : # Drug name : None # Route administered : # Method of monitoring : Extended Emergency Contact Information Primary Emergency Contact: Summer Valdivia Mobile Relation: Mother Advance Directive: Full Code Discharge planning: Anticipated discharge in 3 days, pending improvement NOTE: This report was transcribed using voice recognition software. Every effort was made to ensureaccuracy; however, inadvertent computerized home improvement installer errors may be present. Maxwell Esposito MD Division of Hospitalist Medicine [facility] PAGER: Epic chat documented in this [facility]11-07-2024 Miscellaneous Notes* Care Coordination - Edwige Roldan RN - 12/17/2023 10:30 AM EST Care Management Progress Note Pt has DC orders in place. Met with pt, he would like to use his Transportation Benefits via [employer]. The # given to pt to call when ready for DC..[phone]. Location of pick up operator was also given to pt. Length of Stay (Days): 4 GMLOS: No GMLOS Documented * Care Plan - Lakia Reveles RN - 12/16/2023 6:03 PM EST Problem: Pain - Adult Goal: Verbalizes/displays adequate comfort level or baseline comfort level Outcome: Progressing Problem: Safety - Adult Goal: Free from fall injury Outcome: Progressing Problem: Discharge Planning Goal: Discharge to home or other facility with appropriate resources Outcome: Progressing Problem: Chronic Conditions and Co-morbidities Goal: Patient's chronic conditions and co-morbidity symptoms are monitored and maintained or improved Outcome: Progressing Problem: Potential for Substance Withdrawal Goal: Verbalizes signs/symptoms of withdrawal Outcome: Progressing Goal: Reports signs/symptoms of withdrawal Outcome: Progressing Goal: Free of withdrawal symptoms Outcome: Progressing Problem: Anxiety Goal: Patient/family understands admission protocols Outcome: Progressing Goal: Attempts to manage anxiety with help Outcome: Progressing Goal: Verbalizes ways to manage anxiety Outcome: Progressing Goal: Implements measures to reduce anxiety Outcome: Progressing Goal: Free from restraint events Outcome: Progressing Problem: Problem Interventions Goal: Assess Nutritional Intake Outcome: Progressing * Care Coordination - Edwige Roldan RN - 12/16/2023 3:20 PM EST Care Management Progress Note Pt remains on Phenobarb Taper. Plan to be DC to home @DC. CM to follow. Length of Stay (Days): 3 GMLOS: No GMLOS Documented * Care Plan - Yayo Washington RN - 12/15/2023 9:59 PM EST Problem: Pain - Adult Goal: Verbalizes/displays adequate comfort level or baseline comfort level Outcome: Progressing Problem: Safety - Adult Goal: Free from fall injury Outcome: Progressing * Care Plan - Lakia Reveles RN - 12/15/2023 6:19 PM EST Problem: Pain - Adult Goal: Verbalizes/displays adequate comfort level or baseline comfort level Outcome: Progressing Problem: Safety - Adult Goal: Free from fall injury Outcome: Progressing Problem: Discharge Planning Goal: Discharge to home or other facility with appropriate resources Outcome: Progressing Problem: Chronic Conditions and Co-morbidities Goal: Patient's chronic conditions and co-morbidity symptoms are monitored and maintained or improved Outcome: Progressing Problem: Potential for Substance Withdrawal Goal: Verbalizes signs/symptoms of withdrawal Outcome: Progressing Goal: Reports signs/symptoms of withdrawal Outcome: Progressing Goal: Free of withdrawal symptoms Outcome: Progressing Problem: Anxiety Goal: Patient/family understands admission protocols Outcome: Progressing Goal: Attempts to manage anxiety with help Outcome: Progressing Goal: Verbalizes ways to manage anxiety Outcome: Progressing Goal: Implements measures to reduce anxiety Outcome: Progressing Goal: Free from restraint events Outcome: Progressing * Care Coordination - Edwige Roldan RN - 12/15/2023 1:30 PM EST Care Managment Initial Assessment Date: 12/15/2023 Patient Name: Roro Valdivia : 1985 Patient Information Source of Information: Patient Cognition/Language: WFL - Within Functional Limits Permission given to speak with patient claims representative/caregiver as indicated: (Summer Valdivia [phone]) Confirmation of Payer with patient/family: Yes Payer Name: [place] ODM : No Confirmation of Primary Care Physician: Confirmed PCP Name: Tam Hughes DO Provider Role PCP - General, Family Medicine Primary Caregiver: Self If assistance needed, confirmed caregiver ready, willing and able to care for patient at discharge:Yes (Friends) Confirmed with: Pt Living Arrangements Current Residence: Apartment Number of Floors 1 Number of Entry Steps: (0, 4 flights to pt's apt) Bed/Bath Levels: 1 Facility: (NA) Facility Name: NA Plan to Return: Yes Lives with: Alone Support Systems: Friends/neighbors Activities of Daily Living Ambulation: Independent Bathing/Dressing: Independent Elimination/Continence/Toileting: Independent Feeding: Independent Who Assists with Activities of Daily Living: Independent Instrumental Activities of Daily Living Prescription Coverage: Yes Pharmacy Used: [facility] - [place], [place] - [address] [phone]. MEDS to BEDS @DC Medication Management: Independent Transportation/Shopping: Assistance Provider Transportation/Shopping Assistance Provider Name: Friends/Borrows friends cars. Transportation Mode: Car Needs Assistance with Transportation at Discharge: Comments (Pt has Transport Benefots via insur. May need assisance @DC) Meal Preparation: Independent Laundry/Cleaning: Independent Finances/Bill Paying: Independent Communication: Independent Types of Care Services/Equipment Utilized Care Services: (NA) Dialysis Type: NA Durable Medical Equipment: (NA) DME Provider: [facility] Patient's Goal/Discharge Plan Patient expects to be discharged to: Home Discharge Planning Actions: Continue to follow, No needs identified Patient's Choice Rights and [employer] and Collaborative Relationships Disclosed as Indicated for Post-Acute Care: Yes Interdisciplinary Team Engagement: Disease Management Program, Psychiatry, Addiction Medicine Social Work Referral for: (NA) Additional Information: Met w pt. Introduced myself and my Role. IA completed. Denies HC needs. MEDS to BEDS @DC. Py has Transport Benefits via insur. May need assistance @DC w setting up. CM to follow. Edwige Roldan RN * Care Plan - Merna Dominique RN - 12/14/2023 6:43 PM EST Problem: Pain - Adult Goal: Verbalizes/displays adequate comfort level or baseline comfort level Outcome: Progressing Problem: Safety - Adult Goal: Free from fall injury Outcome: Progressing Problem: Discharge Planning Goal: Discharge to home or other facility with appropriate resources Outcome: Progressing Problem: Chronic Conditions and Co-morbidities Goal: Patient's chronic conditions and co-morbidity symptoms are monitored and maintained or improved Outcome: Progressing Problem: Potential for Substance Withdrawal Goal: Verbalizes signs/symptoms of withdrawal Outcome: Progressing Goal: Reports signs/symptoms of withdrawal Outcome: Progressing Goal: Free of withdrawal symptoms Outcome: Progressing Problem: Anxiety Goal: Patient/family understands admission protocols Outcome: Progressing Goal: Attempts to manage anxiety with help Outcome: Progressing Goal: Verbalizes ways to manage anxiety Outcome: Progressing Goal: Implements measures to reduce anxiety Outcome: Progressing Goal: Free from restraint events Outcome: Progressing The patient is Moderately Stable - Low risk of patient condition declining or worsening The patient's goals for the shift include get rest The clinical goals for the shift include stable CIWA Over the shift, the patient did not make progress toward the following goals. Barriers to progression include none. Recommendations to address these barriers include none. * Perioperative Nursing Note - Juan Becerril RN - 12/14/2023 2:02 PM EST POST ENDOSCOPY PROCEDURE TRANSFER REPORT Physician: Dr. Kline Procedure completed: EGD Specimens obtained: Antrum bx, Distal Esophagus bx Medications administered: 600 mg Propofol Findings: see GI note Complications: none, pt tolerated well Please call the Main Endoscopy Dept at [phone] for questions. Report called to floor RN * Op Note - Hari Kline MD - 12/14/2023 1:37 PM EST [facility] Name: Roro Valdivia Procedure Date: 12/14/2023 1:37 PM Gender: Male Date of : 1985 Age: 38 Admit Type: Inpatient Note Status: Finalized Endoscopist: Hari Kline MD, [id number] Procedure: Upper GI endoscopy Indications: Hematemesis Findings: LA Grade D (one or more mucosal breaks involving at least 75% of esophageal circumference) esophagitis with no bleeding was found. Biopsies were taken with a cold forceps for histology. A medium-sized hiatal hernia was present. The cardia and gastric fundus were normal on retroflexion. Moderate portal hypertensive gastropathy was found in the entire examined stomach. Patchy mild inflammation was found in the gastric antrum. Biopsies were taken with a cold forceps for histology. The examined duodenum was normal. Impression: - LA Grade D reflux esophagitis with no bleeding. Biopsied. - Medium-sized hiatal hernia. - Portal hypertensive gastropathy. - Gastritis. Biopsied. - Normal examined duodenum. Recommendation: - Patient has a contact number available for emergencies. The signs and symptoms of potential delayed complications were discussed with the patient. Return to normal activities tomorrow. Written discharge instructions were provided to the patient. - Resume previous diet. - Continue present medications. - GI will sign off - Keep on PPI and may add carafate - [facility] - Advance diet as tolerated - Advised patient to stop drinking alcohol. Medicines: Monitored Anesthesia Care, Propofol per Anesthesia Procedure: Pre-Anesthesia Assessment: - Prior to the procedure, a History and Physical was performed, and patient medications and allergies were reviewed. The patient's tolerance of previous anesthesia was also reviewed. The risks and benefits of the procedure and the sedation options and risks were discussed with the patient. All questions were answered, and informed consent was obtained. Prior Anticoagulants: The patient has taken no anticoagulant or antiplatelet agents. ASA Grade Assessment: III - A patient with severe systemic disease. After reviewing the risks and benefits, the patient was deemed in satisfactory condition to undergo the procedure. - The anesthesia plan was to use monitored anesthesia care (MAC). After obtaining informed consent, the endoscope was passed under direct vision. Throughout the procedure, the patient's blood pressure, pulse, and oxygen saturations were monitored continuously. The Endoscope was introduced through the mouth, and advanced to the second part of duodenum. The upper GI endoscopy was accomplished without difficulty. The patient tolerated the procedure well. Complications: No immediate complications. Procedure Code(s): --- Professional --- 91168, Esophagogastroduodenoscopy, flexible, transoral; with biopsy, single or multiple --- Technical --- 62017, Esophagogastroduodenoscopy, flexible, transoral; with biopsy, single or multiple Diagnosis Code(s): --- Professional --- K21.00, Gastro-esophageal reflux disease with esophagitis, without bleeding K44.9, Diaphragmatic hernia without obstruction or gangrene K76.6, Portal hypertension K31.89, Other diseases of stomach and duodenum K29.70, Gastritis, unspecified, without bleeding K92.0, Hematemesis --- Technical --- K21.00, Gastro-esophageal reflux disease with esophagitis, without bleeding K44.9, Diaphragmatic hernia without obstruction or gangrene K76.6, Portal hypertension K31.89, Other diseases of stomach and duodenum K29.70, Gastritis, unspecified, without bleeding K92.0, Hematemesis CPT copyright 2021 [employer]. All rights reserved. The codes documented in this report are preliminary and upon groundskeeping yardman review may be revised to meet current compliance requirements. Hari Kline MD 12/14/2023 1:58:38 PM This report has been signed electronically. Number of Addenda: 0 Note Initiated On: 12/14/2023 1:37 PM documented in this [facility]11-07-2024 Note* Care Coordination - Edwige Roldan RN - 12/17/2023 10:30 AM EST Care Management Progress Note Pt has DC orders in place. Met with pt, he would like to use his Transportation Benefits via [employer] [employer]. The # given to pt to call when ready for DC..[phone]. Location of pick up operator was also given to pt. Length of Stay (Days): 4 GMLOS: No GMLOS [facility]ed [id number]* Care Coordination - Edwige Roldan RN - 12/17/2023 10:30 AM EST Care Management Progress Note Pt has DC orders in place. Met with pt, he would like to use his Transportation Benefits via [employer]. The # given to pt to call when ready for DC..[phone]. Location of pick up operator was also given to pt. Length of Stay (Days): 4 GMLOS: No GMLOS Documented [id number] course Narrative* Maxwell Esposito MD - 12/17/2023 9:22 AM EST Discharge Summary Roro Valdivia : 1985 ADMIT DATE: 12/13/2023 DISCHARGE DATE: 12/17/2023 PRIMARY CARE PHYSICIAN: Tam Hughes VISIT STATUS: Admission CODE STATUS: Full Code DISCHARGE DIAGNOSES: Acute problems--- Alcohol use disorder, admitted for detox Hematemesis, status post EGD -grade D esophagitis, portal hypertensive gastropathy, moderate hiatalhernia, gastritis done on 12/14/2023 Abnormal LFT, previous hepatitis panel was negative Leukocytosis, resolved Sinus tachycardia on admission, resolved History of depression Chronic issue--- Alcohol withdrawal seizure in past Pancreatitis GERD Hypertension Chronic smoking history Depression SVT Class III obesity HOSPITAL COURSE: 38-year-old male past medical history of alcohol use disorder, alcohol withdrawal seizure, pancreatitis, GERD, hypertension, SVT, smoking history, depression, admitted in November 2023 at [facility] following pancreatitis/abnormal LFT, hepatitis panel negative, right upper quadrant ultrasonogram showed severe hepatic steatosis, echo at the time showed EF normal. Psychiatric medication was discontinued due to abnormal LFT during last admission. Patient mentioned that he has history of depression, psychiatric medication was discontinued last month following abnormal LFT at [facility]. He started drinking in excess since discharge from [facility]. Patient was treated for alcohol use disorder/detox, seen by addiction medicine team, started on thiamine, folic acid, completed phenobarbital tapering dose. Patient was okay for discharge from addiction medicine standpoint. He was also complaining of hematemesis, seen by GI team, EGD was done whichshowed grade D esophagitis, portal hypertensive gastropathy, moderate hiatal hernia, gastritis doneon 12/14/2023. Hemoglobin at the time of discharge was 12.1. Patient was discharged with Protonix 40mg p.o. twice daily. He needs to follow-up with GI team in 1 month. Patient did not have further episode of hematemesis during hospitalization stay. He also had abnormal LFT, previous hepatitis panelwas negative. He had leukocytosis resolved. Patient had sinus tachycardia on admission resolved following IV fluids. Seen by psychiatric team for depression, started patient on Effexor/risperidone. Patient needs to follow-up with [facility] behavioral outpatient clinic after discharge. On the day of discharge denies new symptom, afebrile, vital signs stable On examination--HEENT: Eyes: No scleral icterus No pallor Oral: Tongue is semi-moist Cardiovascular: S1S2 heard, RRR Respiratory: Clear to auscultation bilaterally anteriorly Abdomen: Soft, nontender, non-distended, no mass palpable with normal bowel sounds. Neurology- Awake alert, answering questions No focal neurology noted Extremity- no significant peripheral edema both lower extremities CONSULTANTS: GI, psychiatry, addiction medicine RECOMMENDED NEXT STEPS: CBC, CMP panel in 1 week DISCHARGE MEDICATIONS: START taking these medications Morning Noon Evening Bedtime As Needed pantoprazole 40 MG EC tablet Take 1 tablet (40 mg) by mouth 2 times daily (before meals). Do not crush, chew, or split. Commonly known as: ProtoNix risperiDONE 0.5 MG tablet Take 1 tablet (0.5 mg) by mouth Nightly. Commonly known as: RisperDAL venlafaxine XR 75 MG 24 hr capsule Take 1 capsule (75 mg) by mouth daily (with breakfast). Do not crush or chew. Do not start before December 18, 2023. Commonly known as: Effexor XR Start taking on: December 18, 2023 CHANGE how you take these medications Morning Noon Evening Bedtime As Needed melatonin 5 MG tablet Take 1 tablet (5 mg) by mouth Nightly. What changed: when to take this reasons to take this metoprolol succinate XL 50 MG 24 hr tablet Take 1 tablet (50 mg) by mouth daily. Do not crush or chew. Commonly known as: Toprol-XL What changed: medication strength STOP taking these medications cloNIDine 0.1 MG tablet Commonly known as: Catapres hydrOXYzine HCl 50 MG tablet Commonly known as: Atarax omeprazole [address] capsule Commonly known as: PriLOSEC DIET: Adult diet Regular ACTIVITY: No restriction. COMPLEXITY OF FOLLOW UP: [] Moderate Complexity: follow up within 7-14 calendar days (42179) [] Severe Complexity: follow up within 7 calendar days (06097) FOLLOW UP TESTING, PENDING RESULTS OR REFERRALS AT TRANSITIONAL CARE VISIT: [] Yes [] No PENDING STUDIES: DISPOSITION: Home FACILITY/HOME CARE AGENCY NAME: Follow up with Tam Hughes DO [address] [facility] [address] Schedule an appointment as soon as possible for a visit in 1 week(s) CBC, CMP panel in 1 week [facility] - [address] [facility] [address] Schedule an appointment as soon as possible for a visit in 1 month(s) [facility] [address] [facility] [id number] Schedule an appointment as soon as possible for a visit [facility] [address] [place] [address] Walk in hours: Thursday-Thursday [phone] INSTRUCTIONS TO MA/SW: Please call patient on day after discharge (must document patient contacted within 2 business days of discharge). FOLLOW UP QUESTIONS FOR MA/SW: 1. Did you get medications filled and taking them as instructed from discharge? 2. Are you following your discharge instructions from your hospital stay? 3. Please confirm patient is scheduled for a follow up appointment within the above time frame. DISCHARGE TIME: > 30 minutes SIGNED: Maxwell Esposito MD 12/17/2023, 9:22 AM documented in this [facility]11-06-2024 Plan of care note* Care Plan - Lakia Reveles RN - 12/16/2023 6:03 PM EST Problem: Pain - Adult Goal: Verbalizes/displays adequate comfort level or baseline comfort level Outcome: Progressing Problem: Safety - Adult Goal: Free from fall injury Outcome: Progressing Problem: Discharge Planning Goal: Discharge to home or other facility with appropriate resources Outcome: Progressing Problem: Chronic Conditions and Co-morbidities Goal: Patient's chronic conditions and co-morbidity symptoms are monitored and maintained or improved Outcome: Progressing Problem: Potential for Substance Withdrawal Goal: Verbalizes signs/symptoms of withdrawal Outcome: Progressing Goal: Reports signs/symptoms of withdrawal Outcome: Progressing Goal: Free of withdrawal symptoms Outcome: Progressing Problem: Anxiety Goal: Patient/family understands admission protocols Outcome: Progressing Goal: Attempts to manage anxiety with help Outcome: Progressing Goal: Verbalizes ways to manage anxiety Outcome: Progressing Goal: Implements measures to reduce anxiety Outcome: Progressing Goal: Free from restraint events Outcome: Progressing Problem: Problem Interventions Goal: Assess Nutritional Intake Outcome: Progressing [place] [id number] Note* Care Coordination - Edwige Roldan RN - 12/16/2023 3:20 PM EST Care Management Progress Note Pt remains on Phenobarb Taper. Plan to be DC to home @DC. CM to follow. Length of Stay (Days): 3 GMLOS: No GMLOS Documented [place] [id number] Note* Care Coordination - Edwige Roldan RN - 12/16/2023 3:20 PM EST Care Management Progress Note Pt remains on Phenobarb Taper. Plan to be DC to home @DC. CM to follow. Length of Stay (Days): 3 GMLOS: No GMLOS Documented [place] [id number] Plan of care note* Care Plan - Yayo Washington RN - 12/15/2023 9:59 PM EST Problem: Pain - Adult Goal: Verbalizes/displays adequate comfort level or baseline comfort level Outcome: Progressing Problem: Safety - Adult Goal: Free from fall injury Outcome: Progressing [place] [id number] Plan of care note* Care Plan - Lakia Reveles RN - 12/15/2023 6:19 PM EST Problem: Pain - Adult Goal: Verbalizes/displays adequate comfort level or baseline comfort level Outcome: Progressing Problem: Safety - Adult Goal: Free from fall injury Outcome: Progressing Problem: Discharge Planning Goal: Discharge to home or other facility with appropriate resources Outcome: Progressing Problem: Chronic Conditions and Co-morbidities Goal: Patient's chronic conditions and co-morbidity symptoms are monitored and maintained or improved Outcome: Progressing Problem: Potential for Substance Withdrawal Goal: Verbalizes signs/symptoms of withdrawal Outcome: Progressing Goal: Reports signs/symptoms of withdrawal Outcome: Progressing Goal: Free of withdrawal symptoms Outcome: Progressing Problem: Anxiety Goal: Patient/family understands admission protocols Outcome: Progressing Goal: Attempts to manage anxiety with help Outcome: Progressing Goal: Verbalizes ways to manage anxiety Outcome: Progressing Goal: Implements measures to reduce anxiety Outcome: Progressing Goal: Free from restraint events Outcome: Progressing [id number] [facility]* Care Coordination - Edwige Roldan RN - 12/15/2023 1:30 PM EST Care Managment Initial Assessment Date: 12/15/2023 Patient Name: Roro Valdivia : 1985 Patient Information Source of Information: Patient Cognition/Language: WFL - Within Functional Limits Permission given to speak with patient claims representative/caregiver as indicated: (Summer Valdivia [phone]) Confirmation of Payer with patient/family: Yes Payer Name: [place] [employer] [employer] ODM : No Confirmation of Primary Care Physician: Confirmed PCP Name: Tam Hughes DO Provider Role PCP - General, Family Medicine Primary Caregiver: Self If assistance needed, confirmed caregiver ready, willing and able to care for patient at discharge:Yes (Friends) Confirmed with: Pt Living Arrangements Current Residence: Apartment Number of Floors 1 Number of Entry Steps: (0, 4 flights to pt's apt) Bed/Bath Levels: 1 Facility: (NA) Facility Name: NA Plan to Return: Yes Lives with: Alone Support Systems: Friends/neighbors Activities of Daily Living Ambulation: Independent Bathing/Dressing: Independent Elimination/Continence/Toileting: Independent Feeding: Independent Who Assists with Activities of Daily Living: Independent Instrumental Activities of Daily Living Prescription Coverage: Yes Pharmacy Used: [facility] - [place], [place] - [address] [phone]. MEDS to BEDS @DC Medication Management: Independent Transportation/Shopping: Assistance Provider Transportation/Shopping Assistance Provider Name: Friends/Borrows friends cars. Transportation Mode: Car Needs Assistance with Transportation at Discharge: Comments (Pt has Transport Benefots via insur. May need assisance @DC) Meal Preparation: Independent Laundry/Cleaning: Independent Finances/Bill Paying: Independent Communication: Independent Types of Care Services/Equipment Utilized Care Services: (NA) Dialysis Type: NA Durable Medical Equipment: (NA) DME Provider: NA Patient's Goal/Discharge Plan Patient expects to be discharged to: Home Discharge Planning Actions: Continue to follow, No needs identified Patient's Choice Rights and [employer] and Collaborative Relationships Disclosed as Indicated for Post-Acute Care: Yes Interdisciplinary Team Engagement: Disease Management Program, Psychiatry, Addiction Medicine Social Work Referral for: (NA) Additional Information: Met w pt. Introduced myself and my Role. IA completed. Denies HC needs. MEDS to BEDS @DC. Py has Transport Benefits via insur. May need assistance @DC w setting up. CM to follow. Edwige Roldan RN [id number] [facility]* Care Coordination - Edwige Roldan RN - 12/15/2023 1:30 PM EST Care Managment Initial Assessment Date: 12/15/2023 Patient Name: Roro Valdivia : 1985 Patient Information Source of Information: Patient Cognition/Language: WFL - Within Functional Limits Permission given to speak with patient claims representative/caregiver as indicated: (Summer Valdivia [phone]) Confirmation of Payer with patient/family: Yes Payer Name: [place] [employer] [employer] ODM : No Confirmation of Primary Care Physician: Confirmed PCP Name: Tam Hughes DO Provider Role PCP - General, Family Medicine Primary Caregiver: Self If assistance needed, confirmed caregiver ready, willing and able to care for patient at discharge:Yes (Friends) Confirmed with: Pt Living Arrangements Current Residence: Apartment Number of Floors 1 Number of Entry Steps: (0, 4 flights to pt's apt) Bed/Bath Levels: 1 Facility: (NA) Facility Name: NA Plan to Return: Yes Lives with: Alone Support Systems: Friends/neighbors Activities of Daily Living Ambulation: Independent Bathing/Dressing: Independent Elimination/Continence/Toileting: Independent Feeding: Independent Who Assists with Activities of Daily Living: Independent Instrumental Activities of Daily Living Prescription Coverage: Yes Pharmacy Used: [facility] - [place], [place] - [address] [phone]. MEDS to BEDS @DC Medication Management: Independent Transportation/Shopping: Assistance Provider Transportation/Shopping Assistance Provider Name: Friends/Borrows friends cars. Transportation Mode: Car Needs Assistance with Transportation at Discharge: Comments (Pt has Transport Benefots via insur. May need assisance @DC) Meal Preparation: Independent Laundry/Cleaning: Independent Finances/Bill Paying: Independent Communication: Independent Types of Care Services/Equipment Utilized Care Services: (NA) Dialysis Type: NA Durable Medical Equipment: (NA) DME Provider: [facility] Patient's Goal/Discharge Plan Patient expects to be discharged to: Home Discharge Planning Actions: Continue to follow, No needs identified Patient's Choice Rights and [employer] and Collaborative Relationships Disclosed as Indicated for Post-Acute Care: Yes Interdisciplinary Team Engagement: Disease Management Program, Psychiatry, Addiction Medicine Social Work Referral for: (NA) Additional Information: Met w pt. Introduced myself and my Role. IA completed. Denies HC needs. MEDS to BEDS @[facility]. Py has Transport Benefits via insur. May need assistance @[facility] w setting up. CM to follow. Edwige Roldan RN [id number] Plan of care note* Care Plan - Merna Dominique RN - 12/14/2023 6:43 PM EST Problem: Pain - Adult Goal: Verbalizes/displays adequate comfort level or baseline comfort level Outcome: Progressing Problem: Safety - Adult Goal: Free from fall injury Outcome: Progressing Problem: Discharge Planning Goal: Discharge to home or other facility with appropriate resources Outcome: Progressing Problem: Chronic Conditions and Co-morbidities Goal: Patient's chronic conditions and co-morbidity symptoms are monitored and maintained or improved Outcome: Progressing Problem: Potential for Substance Withdrawal Goal: Verbalizes signs/symptoms of withdrawal Outcome: Progressing Goal: Reports signs/symptoms of withdrawal Outcome: Progressing Goal: Free of withdrawal symptoms Outcome: Progressing Problem: Anxiety Goal: Patient/family understands admission protocols Outcome: Progressing Goal: Attempts to manage anxiety with help Outcome: Progressing Goal: Verbalizes ways to manage anxiety Outcome: Progressing Goal: Implements measures to reduce anxiety Outcome: Progressing Goal: Free from restraint events Outcome: Progressing The patient is Moderately Stable - Low risk of patient condition declining or worsening The patient's goals for the shift include get rest The clinical goals for the shift include stable CIWA Over the shift, the patient did not make progress toward the following goals. Barriers to progression include none. Recommendations to address these barriers include none. [facility]11-04-2024 Note* Perioperative Nursing Note - Juan Becerril RN - 12/14/2023 2:02 PM EST POST ENDOSCOPY PROCEDURE TRANSFER REPORT Physician: Dr. Kline Procedure completed: EGD Specimens obtained: Antrum bx, Distal Esophagus bx Medications administered: 600 mg Propofol Findings: see GI note Complications: none, pt tolerated well Please call the Main Endoscopy Dept at [phone] for questions. Report called to floor RN [place] [id number] Note* Perioperative Nursing Note - Juan Becerril RN - 12/14/2023 2:02 PM EST POST ENDOSCOPY PROCEDURE TRANSFER REPORT Physician: Dr. Kline Procedure completed: EGD Specimens obtained: Antrum bx, Distal Esophagus bx Medications administered: 600 mg Propofol Findings: see GI note Complications: none, pt tolerated well Please call the Main Endoscopy Dept at [phone] for questions. Report called to floor RN [place] [id number] Note* Op Note - Hari Kline MD - 12/14/2023 1:37 PM EST Endoscopy Center- [facility] Patient Name: Roro Valdivia Procedure Date: 12/14/2023 1:37 PM Gender: Male Date of : 1985 Age: 38 Admit Type: Inpatient Note Status: Finalized Endoscopist: Hari Kline MD, [id number] Procedure: Upper GI endoscopy Indications: Hematemesis Findings: LA Grade D (one or more mucosal breaks involving at least 75% of esophageal circumference) esophagitis with no bleeding was found. Biopsies were taken with a cold forceps for histology. A medium-sized hiatal hernia was present. The cardia and gastric fundus were normal on retroflexion. Moderate portal hypertensive gastropathy was found in the entire examined stomach. Patchy mild inflammation was found in the gastric antrum. Biopsies were taken with a cold forceps for histology. The examined duodenum was normal. Impression: - LA Grade D reflux esophagitis with no bleeding. Biopsied. - Medium-sized hiatal hernia. - Portal hypertensive gastropathy. - Gastritis. Biopsied. - Normal examined duodenum. Recommendation: - Patient has a contact number available for emergencies. The signs and symptoms of potential delayed complications were discussed with the patient. Return to normal activities tomorrow. Written discharge instructions were provided to the patient. - Resume previous diet. - Continue present medications. - GI will sign off - Keep on PPI and may add carafate - Follow up with [facility] - Advance diet as tolerated - Advised patient to stop drinking alcohol. Medicines: Monitored Anesthesia Care, Propofol per Anesthesia Procedure: Pre-Anesthesia Assessment: - Prior to the procedure, a History and Physical was performed, and patient medications and allergies were reviewed. The patient's tolerance of previous anesthesia was also reviewed. The risks and benefits of the procedure and the sedation options and risks were discussed with the patient. All questions were answered, and informed consent was obtained. Prior Anticoagulants: The patient has taken no anticoagulant or antiplatelet agents. ASA Grade Assessment: III - A patient with severe systemic disease. After reviewing the risks and benefits, the patient was deemed in satisfactory condition to undergo the procedure. - The anesthesia plan was to use monitored anesthesia care (MAC). After obtaining informed consent, the endoscope was passed under direct vision. Throughout the procedure, the patient's blood pressure, pulse, and oxygen saturations were monitored continuously. The Endoscope was introduced through the mouth, and advanced to the second part of duodenum. The upper GI endoscopy was accomplished without difficulty. The patient tolerated the procedure well. Complications: No immediate complications. Procedure Code(s): --- Professional --- 68313, Esophagogastroduodenoscopy, flexible, transoral; with biopsy, single or multiple --- Technical --- 80112, Esophagogastroduodenoscopy, flexible, transoral; with biopsy, single or multiple Diagnosis Code(s): --- Professional --- K21.00, Gastro-esophageal reflux disease with esophagitis, without bleeding K44.9, Diaphragmatic hernia without obstruction or gangrene K76.6, Portal hypertension K31.89, Other diseases of stomach and duodenum K29.70, Gastritis, unspecified, without bleeding K92.0, Hematemesis --- Technical --- K21.00, Gastro-esophageal reflux disease with esophagitis, without bleeding K44.9, Diaphragmatic hernia without obstruction or gangrene K76.6, Portal hypertension K31.89, Other diseases of stomach and duodenum K29.70, Gastritis, unspecified, without bleeding K92.0, Hematemesis CPT copyright 2021 [employer]. All rights reserved. The codes documented in this report are preliminary and upon groundskeeping yardman review may be revised to meet current compliance requirements. Hari Kline MD 12/14/2023 1:58:38 PM This report has been signed electronically. Number of Addenda: 0 Note Initiated On: 12/14/2023 1:37 PM [id number]* Op Note - Hari Kline MD - 12/14/2023 1:37 PM EST Endoscopy Center- [facility] Patient Name: Roro Valdivia Procedure Date: 12/14/2023 1:37 PM Gender: Male Date of : 1985 Age: 38 Admit Type: Inpatient Note Status: Finalized Endoscopist: Hari Kline MD, [id number] Procedure: Upper GI endoscopy Indications: Hematemesis Findings: LA Grade D (one or more mucosal breaks involving at least 75% of esophageal circumference) esophagitis with no bleeding was found. Biopsies were taken with a cold forceps for histology. A medium-sized hiatal hernia was present. The cardia and gastric fundus were normal on retroflexion. Moderate portal hypertensive gastropathy was found in the entire examined stomach. Patchy mild inflammation was found in the gastric antrum. Biopsies were taken with a cold forceps for histology. The examined duodenum was normal. Impression: - LA Grade D reflux esophagitis with no bleeding. Biopsied. - Medium-sized hiatal hernia. - Portal hypertensive gastropathy. - Gastritis. Biopsied. - Normal examined duodenum. Recommendation: - Patient has a contact number available for emergencies. The signs and symptoms of potential delayed complications were discussed with the patient. Return to normal activities tomorrow. Written discharge instructions were provided to the patient. - Resume previous diet. - Continue present medications. - GI will sign off - Keep on PPI and may add carafate - Follow up with [facility] - Advance diet as tolerated - Advised patient to stop drinking alcohol. Medicines: Monitored Anesthesia Care, Propofol per Anesthesia Procedure: Pre-Anesthesia Assessment: - Prior to the procedure, a History and Physical was performed, and patient medications and allergies were reviewed. The patient's tolerance of previous anesthesia was also reviewed. The risks and benefits of the procedure and the sedation options and risks were discussed with the patient. All questions were answered, and informed consent was obtained. Prior Anticoagulants: The patient has taken no anticoagulant or antiplatelet agents. ASA Grade Assessment: III - A patient with severe systemic disease. After reviewing the risks and benefits, the patient was deemed in satisfactory condition to undergo the procedure. - The anesthesia plan was to use monitored anesthesia care (MAC). After obtaining informed consent, the endoscope was passed under direct vision. Throughout the procedure, the patient's blood pressure, pulse, and oxygen saturations were monitored continuously. The Endoscope was introduced through the mouth, and advanced to the second part of duodenum. The upper GI endoscopy was accomplished without difficulty. The patient tolerated the procedure well. Complications: No immediate complications. Procedure Code(s): --- Professional --- 23422, Esophagogastroduodenoscopy, flexible, transoral; with biopsy, single or multiple --- Technical --- 56790, Esophagogastroduodenoscopy, flexible, transoral; with biopsy, single or multiple Diagnosis Code(s): --- Professional --- K21.00, Gastro-esophageal reflux disease with esophagitis, without bleeding K44.9, Diaphragmatic hernia without obstruction or gangrene K76.6, Portal hypertension K31.89, Other diseases of stomach and duodenum K29.70, Gastritis, unspecified, without bleeding K92.0, Hematemesis --- Technical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 Yellow Lt. Yellow Clarity, Urine Clear Clear pH, Urine 6.5 5.0 - 8.0 pH Leukocytes, Urine Negative Negative Teofilo/uL Nitrite, Urine Negative Negative Protein, Urine Negative Negative mg/dL Glucose, Urine Normal Normal (<70) mg/dL Bilirubin, Urine Negative Negative mg/dL Ketones, Urine Negative Negative mg/dL Urobilinogen, Urine Normal Normal (0-1) mg/dL Blood, Urine 0.03 (A) Negative mg/dL RBC, Urine 0-2 0 - 2 /HPF WBC, Urine 0-2 0 - 5 /HPF Squamous Epithelial, Urine Negative 3 - 5 /HPF Bacteria, Urine Few (A) Negative /HPF SPECIFIC GRAVITY OF URINE (NUMERIC) 1.004 (L) 1.005 - 1.030 Ethanol Collection Time: 12/13/23 12:42 PM Result Value Ref Range ETHANOL IN SER/PLAS 0.435 (HH) 0.000 - 0.010 g/dL Comprehensive metabolic panel Collection Time: 12/13/23 12:42 PM Result Value Ref Range SODIUM 145 135 - 145 mmol/L POTASSIUM 4.0 3.5 - 5.1 mmol/L CHLORIDE 103 98 - 107 mmol/L CARBON DIOXIDE 20 (L) 22 - 30 mmol/L ANION GAP 23 (H) 3 - 13 mmol/L UREA NITROGEN 5 (L) 9 - 20 mg/dL CREATININE 0.60 (L) 0.66 - 1.25 mg/dL GLUCOSE 116 (H) 70 - 100 mg/dL CALCIUM 9.5 8.4 - 10.4 mg/dL AST (SGOT) 186 (H) 15 - 46 U/L ALT 141 (H) 0 - 49 U/L ALKALINE PHOSPHATASE 171 (H) 38 - 126 U/L ALBUMIN 4.9 3.5 - 5.0 g/dL BILIRUBIN, TOTAL 0.9 0.2 - 1.3 mg/dL TOTAL PROTEIN 8.3 (H) 6.3 - 8.2 g/dL eGFR >90.0 >60.0 mL/min/1.73m*2 Lipase Collection Time: 12/13/23 12:42 PM Result Value Ref Range LIPASE 78 23 - 300 U/L ECG 12 lead Collection Time: 12/13/23 12:42 PM Result Value Ref Range Heart Rate 91 bpm QRSD Interval 97 ms QT Interval 373 ms QTC Interval 459 ms P [place] 53 degrees QRS [place] -11 degrees T Wave [place] -5 degrees ME Interval 148 ms Basic metabolic panel Collection Time: 12/13/23 11:25 PM Result Value Ref Range SODIUM 145 135 - 145 mmol/L POTASSIUM 3.9 3.5 - 5.1 mmol/L CHLORIDE 106 98 - 107 mmol/L CARBON DIOXIDE 22 22 - 30 mmol/L UREA NITROGEN 6 (L) 9 - 20 mg/dL CREATININE 0.71 0.66 - 1.25 mg/dL GLUCOSE 110 (H) 70 - 100 mg/dL CALCIUM 8.9 8.4 - 10.4 mg/dL ANION GAP 16 (H) 3 - 13 mmol/L eGFR >90.0 >60.0 mL/min/1.73m*2 Medications doxepin, 10 mg, Oral, Nightly folic acid, 1 mg, Oral, Daily melatonin, 5 mg, Oral, Nightly metoprolol succinate XL, 50 mg, Oral, Daily pantoprazole (ProtoNix) 40 mg in sodium chloride (PF) 0.9 % 10 mL injection, 40 mg, IntraVENous, BID PHENobarbital, 97.2 mg, Oral, Q4H thiamine, 100 mg, Oral, Daily PRN medications: cloNIDine, labetalol, LORazepam OR LORazepam OR LORazepam OR LORazepamOR [DISCONTINUED] LORazepam OR [DISCONTINUED] LORazepam OR [DISCONTINUED] LORazepam OR [DISCONTINUED] LORazepam, LORazepam, methocarbamol, naloxone, ondansetron ODT, oxyCODONE, polyethylene glycol (PEG) 3350, traZODone Assessment & Plan alcohol use disorder Counseled patient on biopsychosocial consequences of substance use. Encouraged professional chemical dependency treatment. Encouraged 12 step meeting attendance. Addiction treatment plan with patient: Patient not interested in any aftercare treatment. alcohol withdrawal Last use of alcohol was on 12/13/2023. Phenobarbital taper to manage alcohol withdrawal symptoms. 65mg q 4 hours for today. Alcohol adjunct thiamine/folic acid CIWA scores per unit protocol. PRN medications for withdrawal symptom management added. Disposition: Detox anticipated in 3-5 days. This is pending: Resolution of withdrawal symptoms. Medical stabilization. Labs/tests/tasks to review: none. Nurse Ob recommendations: none. Remaining medical management per primary team. Will follow. Ron Fonseca APRN - [employer] Addiction Medicine 12/14/2023 at 11:52 AM I spent over 51% of total time 50 minutes counseling and coordinating care regarding patient's chemical dependency status. Note: Narrative portions of note written using Dragon dictation software. Efforts are made to dictate clearly and proofread but errors in dictation still may occur. Please reach out to author with any clarifying questions. * Hari Kline MD - 12/14/2023 11:01 AM ESTAssociated Order(s): IP CONSULT TO GI Department of Internal Medicine Gastroenterology Attending Consult Note Reason for Consult: The patient was seen in consultation at the request of Dr. Vaibhav Arreola re: Alcohol use disorder, admitted last month to [facility] for pancreatitis/alcohol abuse,psychiatric medication was discontinued due to abnormal LFT, patient has significant history of depression CHIEF COMPLAINT: Alcohol Intoxication/Detox History Obtained From: patient HISTORY OF PRESENT ILLNESS: The patient is a 38 y.o. male with significant past medical history of alcohol use disorder, alcohol withdrawal seizure, pancreatitis, GERD, hypertension, SVT, smoking history, depression who presents with alcohol intoxication and hematemesis. Pt was admitted in November 2023 at [facility] following pancreatitis/abnormal LFT, hepatitis panel negative, right upper quadrant ultrasonogram showed severe hepatic steatosis, echo at the time showed EF normal. Psychiatric medication was discontinued due to abnormal LFT during last admission. Patient denies any suicidal ideation Admitted following alcohol intoxication, for detox. Had 3 episode of hematemesis yesterday.Complaining of epigastric abdominal pain. Patient now on CIWA protocol with ativan and CIWA. BP of 160/70. Pulse of 109. Respirations of 18. AST/ALT of 186/141. Alk phos of 171. WBC of 12.1. Hgb of 14.3 and stable. Ethanol level of .435. US abdomen (11/24/23) - diffuse hepatic steatosis. CT abdomen & pelvis (11/22/23) - resolving pancreatitis, hepatic steatosis, splenomegaly. Allergies: Patient has no known allergies. Current Medications: Current Facility-Administered Medications: cloNIDine (Catapres) tablet 0.1 mg, 0.1 mg, Oral, q8h PRN, Dov Vanegas MD doxepin (SINEquan) capsule 10 mg, 10 mg, Oral, Nightly, Dov Vanegas MD folic acid (Folvite) tablet 1 mg, 1 mg, Oral, Daily, Tania Payne DO, 1 mg at 12/14/23 08 labetalol (Normodyne,Trandate) injection 10 mg, 10 mg, IntraVENous, q6h PRN, Ant Carty MD LORazepam (Ativan) tablet 1 mg, 1 mg, Oral, q1h PRN OR LORazepam (Ativan) injection 1 mg, 1 mg,IntraVENous, q1h PRN OR LORazepam (Ativan) tablet 2 mg, 2 mg, Oral, q1h PRN OR LORazepam (Ativan) injection 2 mg, 2 mg, IntraVENous, q1h PRN, 2 mg at 12/14/23818 OR [DISCONTINUED] LORazepam (Ativan) tablet 3 mg, 3 mg, Oral, q1h PRN OR [DISCONTINUED] LORazepam (Ativan) injection 3 mg, 3 mg, IntraVENous, q1h PRN, 3 mg at 12/13/232250 OR [DISCONTINUED] LORazepam (Ativan) tablet 4 mg, 4 mg, Oral, q1h PRN OR [DISCONTINUED] LORazepam (Ativan) injection 4 mg, 4 mg, IntraVENous, q1h PRN, Tania Payne DO LORazepam (Ativan) tablet 2 mg, 2 mg, Oral, q4h PRN, Ant Carty MD melatonin tablet 5 mg, 5 mg, Oral, Nightly, Dov Vanegas MD methocarbamol (Robaxin) tablet 1,000 mg, 1,000 mg, Oral, q6h PRN, Dov Vanegas MD metoprolol succinate XL (Toprol-XL) 24 hr tablet 50 mg, 50 mg, Oral, Daily, Ant Carty MD, 50 mg at 12/14/23818 naloxone (Narcan) injection 0.4 mg, 0.4 mg, IntraVENous, q5 min PRN, Ant Carty MD ondansetron ODT (Zofran-ODT) disintegrating tablet 4 mg, 4 mg, Oral, q8h PRN, Dov Vanegas MD oxyCODONE (Roxicodone) immediate release tablet 5 mg, 5 mg, Oral, q6h PRN, Ant Carty MD pantoprazole (ProtoNix) 40 mg in sodium chloride (PF) 0.9 % 10 mL injection, 40 mg, IntraVENous, BID, Maxwell Esposito MD PHENobarbital tablet 97.2 mg, 97.2 mg, Oral, Q4H, Dov Vanegas MD, 97.2 mg at 12/14/23 1029 polyethylene glycol (PEG) 3350 (Miralax) packet 17 g, 17 g, Oral, Daily PRN, Ant Carty MD sodium chloride 0.9 % infusion, 100 mL/hr, IntraVENous, Continuous, Maxwell Esposito MD, Last Rate: 100 mL/hr at 12/14/23 08, 100 mL/hr at 12/14/23 08 thiamine (Vitamin B1) tablet 100 mg, 100 mg, Oral, Daily, Tania Payne DO, 100 mg at 12/14/23 08 traZODone (Desyrel) tablet 50 mg, 50 mg, Oral, Nightly PRN, Dov Vanegas MD Past Medical History: Active Ambulatory Problems Diagnosis Date Noted GERD (gastroesophageal reflux disease) 06/06/2018 Hypertension 06/06/2018 SVT (supraventricular tachycardia) ([facility]) 06/06/2018 Tourette syndrome 06/06/2018 Alcohol induced acute pancreatitis without necrosis or infection 03/29/2018 Polysubstance use disorder 03/16/2022 Cocaine abuse ([facility]) 03/16/2022 Elevated liver enzymes 03/16/2022 Panic disorder 03/16/2022 Alcohol abuse 07/11/2022 Benzodiazepine withdrawal with complication ([facility]) 11/04/2022 Opioid withdrawal ([facility]) 11/04/2022 Amphetamine withdrawal ([facility]) 11/04/2022 Pneumonia 11/04/2022 Palpitations 11/04/2022 Other specified abnormal findings of blood chemistry 11/04/2022 Dermatitis 11/04/2022 Depression 11/04/2022 Positive 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 01/07/2023 History of pancreatitis 01/07/2023 Severe alcohol use disorder (HCC) 06/24/2023 Severe opioid use disorder on maintenance therapy (HCC) 08/11/2023 Severe episode of recurrent major depressive disorder, without psychotic features (HCC) 08/11/2023 Acute recurrent pancreatitis 10/16/2023 Acute pancreatitis without infection or necrosis 11/18/2023 Moderate malnutrition (CMS/HCC) (HCC) 11/20/2023 Resolved Ambulatory Problems Diagnosis Date Noted Acute pancreatitis 03/29/2018 Acute pancreatitis without infection or necrosis 06/06/2018 Alcohol withdrawal with inpatient treatment, uncomplicated (HCC) 03/15/2022 Alcohol withdrawal syndrome without complication (HCC) 06/27/2022 Past Medical History: Diagnosis Date Pancreatitis Seizures (HCC) Past Surgical History: Social History Socioeconomic History Marital status: Single Spouse name: Not on file Number of children: Not on file Years of education: Not on file Highest education level: Not on file Occupational History Not on file Tobacco Use Smoking status: Every Day Current packs/day: 1.00 Types: Cigarettes Smokeless tobacco: Never Vaping Use Vaping status: Never Used Substance and Sexual Activity Alcohol use: Yes Comment: 2/5 vodka daily Drug use: Not Currently Types: Cocaine, Methamphetamines, Oxycodone, Fentanyl, Heroin, Benzodiazepines Sexual activity: Not Currently Other Topics Concern Not on file Social History Narrative Not on file Social Drivers of Health Financial Resource Strain: High Risk (10/16/2023) Overall Financial Resource Strain (CARDIA) Difficulty of Paying Living Expenses: Very hard Food Insecurity: Food Insecurity Present (10/16/2023) Hunger Vital Sign Worried About Running Out of Food in the Last Year: Often true Ran Out of Food in the Last Year: Often true Transportation Needs: No Transportation Needs (10/16/2023) PRAPARE - Transportation Lack of Transportation (Medical): No Lack of Transportation (Non-Medical): No Physical Activity: Inactive (10/16/2023) Exercise Vital Sign Days of Exercise per Week: 0 days Minutes of Exercise per Session: 0 min Stress: Stress Concern Present (10/16/2023) [employer] - Occupational Stress Questionnaire Feeling of Stress : Very much Social Connections: Socially Isolated (10/16/2023) Social Connection and Isolation Panel [NHANES] Frequency of Communication with Friends and Family: Never Frequency of Social Gatherings with Friends and Family: Never Attends [employer]ish Services: Never Active Member of Clubs or Organizations: No Attends Club or Organization Meetings: Never Marital Status: Never Intimate Partner Violence: Not At Risk (12/14/2023) Humiliation, Afraid, Rape, and Kick questionnaire Fear of Current or Ex-Partner: No Emotionally Abused: No Physically Abused: No Sexually Abused: No Housing Stability: High Risk (10/16/2023) Housing Stability Vital Sign Unable to Pay for Housing in the Last Year: Yes Number of Times Moved in the Last Year: 2 Homeless in the Last Year: Yes Family History: Family History Problem Relation Name Age of Onset No Known Problems Mother No Known Problems Father No family history colon or stomach cancer. Social History: TOBACCO: reports that he has been smoking cigarettes. He has never used smokeless tobacco. ETOH: reports current alcohol use. DRUGS: reports that he does not currently use drugs after having used the following drugs: Cocaine,Methamphetamines, Oxycodone, Fentanyl, Heroin, and Benzodiazepines. 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 Normal appetite and weight. No CASTILLO, visual disturbance, eye pain, jaundice, sore throat or mouth ulcers. No skin rash or itching. No CP, SOB, PARKER, cough or wheeze. No urinary frequency, urgency, hematuria, or dysuria. No myalgia, arthralgia, or joint swelling. No weakness, numbness, or confusion. GI per HPI. No polyuria, polydipsia, heat or cold intolerance. PHYSICAL EXAM: VS: BP 160/69 Pulse 109 Temp 36.8 C (98.2 F) (Temporal) Resp 18 Ht 5' 10 (1.778 m) Wt 252 lb (114 kg) SpO2 96% BMI 36.16 kg/m Body mass index is 36.16 kg/m . Constitutional: No acute distress. Well-nourished. Well hydrated Head/Eyes: Pupils are equal and round; Conjunctiva are not injected; Sclera are non-icteric. ENT: Ears/nose without external abnormalities. Oral mucosa is pink and moist. Neck: No JVD. No carotid bruits; No thyromegaly. Respiratory: Clear to auscultation bilaterally without any added sounds. Effort is normal Heart: Regular, Normal S1 and S2. No murmur; No added sounds. Abdomen: Normal BS, soft, epigastric tenderness, non-distended; no hepatomegaly. Extremities/Skin: No LE edema; Skin warm to touch and well perfused. Musculoskeletal: Head - normocephalic. Neck - supple Psychiatric: AAO x 3, answers appropriately, normal mood, normal affect. No asterixis. Non-focal. DATA: Recent blood work and relevant radiologic and endoscopic studies were reviewed and discussed with the patient. CBC: Recent Labs 12/13/23 1159 WBC 12.1* RBC 4.65 HGB 14.3 HCT 43.7 MCV 94.0 MCH 30.8 MCHC 32.7 RDW 14.4 PLT 423 MPV 10.2 CMP: Recent Labs 12/13/23 1242 12/13/23 2325 NA 145 145 K 4.0 3.9 CL 103 106 CO2 20* 22 BUN 5* 6* CREATININE 0.60* 0.71 GLUCOSE 116* 110* CALCIUM 9.5 8.9 PROT 8.3* -- BILITOT 0.9 -- ALKPHOS 171* -- AST 186* -- ALT 141* -- PT/INR: No results for input(s): INR in the last 72 hours. Radiologic Review US abdomen (11/24/23) - diffuse hepatic steatosis CT abdomen & pelvis (11/22/23) - resolving pancreatitis, hepatic steatosis, splenomegaly Endoscopic Review None IMPRESSION/RECOMMENDATIONS: #Hematemesis #Epigastric Abdominal Pain #Hepatatic Steatosis #Abnormal LFT #Hx of Pancreatitis #GERD #Concern for Leatha-Fang tear vs esophageal varices vs gastritis/PUD vs esophageal cancer - 3 episode of hematemesis yesterday, hematemesis for 5 days duration - Complaining of epigastric abdominal pain - Patient compliant with home Omeprazole for GERD - Hospital admission for pancreatitis 11/2023 - Hepatitis panel negative - AST/ALT of 186/141. Alk phos of 171, lipase WNL - Hgb of 14.3 and stable - US abdomen (11/24/23) - diffuse hepatic steatosis - CT abdomen & pelvis (11/22/23) - resolving pancreatitis, hepatic steatosis, splenomegaly Plan: - Continue to monitor H&H - Protonix 40 IV daily - Upper endoscopy today permitting patient is stable #Alcohol use disorder, admitted for detox #Hx of Alcohol Withdrawal seizure - AST/ALT of 186/141. Alk phos of 171, lipase WNL - Ethanol level of .435 - Patient states he has been drinking a lot more since he was taken off of psych meds 11/2023 Plan: - CIWA protocol w Ativan + Phenobarb - Thiamine/Folate - ADM consulted #Hepatatic Steatosis #Abnormal LFT - AST/ALT of 186/141. Alk phos of 171, lipase WNL - Platelets and PT/INR WNL - US abdomen (11/24/23) - diffuse hepatic steatosis #Leukocytosis #Sinus tachycardia on admission - WBC of 12.1, likely reactive 2/2 withdrawal + hematemesis - HR of 109 likely 2/2 acute alcohol withdrawal #Hypertension #Tobacco Abuse - BP of 160s/70s, likely 2/2 acute alcohol withdrawal #Depression - Psychiatric medication was discontinued due to abnormal LFT during last admission - Psych consulted I have personally seen, interviewed, and examined the patient. I have reviewed the case with the Medical Student/Resident/PA and reviewed their consult/progress note. I agree with all of the above. 38 year old male with alcohol hepatitis and alcohol abuse here for evaluation for hemetemesis. Planfor EGD today. Hemoglobin stable. Hari Kline MD, FACG, AGAF Electronically signed by Hari Kline MD 12/14/2023 1:34 PM * JOSÉ ANTONIO Scruggs CNP - 12/14/2023 10:51 AM ESTAssociated Order(s): IP CONSULT TO PSYCHIATRY [facility] Department of Psychiatry Nurse Practitioner Note *Please contact [employer] Manager Psychiatry Listed in [facility] On-Call Finder Thu-Thu: From 1700 - 0800 and on Thursday & Thursday* TODAY'S DATE: 12/14/23 ADMISSION DATE: 12/13/2023 IDENTIFYING INFORMATION Name: Roro Valdivia : 1985 Reason for Consult: Alcohol use disorder, admitted last month to [facility] for pancreatitis/alcohol abuse, psychiatric medication was discontinued due to abnormal LFT, patient has significant history of depression Consulting Practitioner[facility] Day: 1 SUBJECTIVE: CHIEF COMPLAINT: CC: Chief Complaint Patient presents with Alcohol Intoxication Brought in by his mother from home. He was recently at [facility] for some time. They discontinued his psych meds due to pancreatitis (ETOH induced). Upon arrival to the room he was not answering questionsbut then was able to do so. He states he does have hallucinations sometimes but denies SI/HI. Is complaining of abdominal pain 11/18. Was having nausea and vomiting in triage and earlier this morning. Pancreatitis Principal Problem: Alcoholic intoxication without complication (CMS/HCC) ([facility]) Psychiatric CC: anxiety and depression For every encounter with this patient, if applicable this Provider wore appropriate PPE including but not limited to standard precautions, N95 mask, surgical mask, gown and/or protective eyewear. Chart reviewed, including notes, labs, imagining, allergies, and medications, all pertinent information discussed with medical staff, nursing, social work, and patient/family if necessary. History obtained from: Patient and Chart Review HISTORY OF PRESENT ILLNESS: HPI: Roro Valdivia is a 38 y.o., male who was hospitalized at [facility] for Alcoholic intoxication without complication ([facility]/HCC) ([facility]) on 12/13/2023. PMH of alcohol withdrawal seizures, alcohol withdrawal syndrome, panic attacks/anxiety, history of pancreatitis, polysubstance abuse, GERD, tourette's and SVT. Pt with recent admission to [facility] (11/16-11/27) with elevated LFTs, at that time pt wanted to leave and refused speaking with psychiatry so he agreed to hold all of his mental health medications until he spoke with his OP psychiatrist with addiction medicine perdocumentation. During that hospitalization pt requested to be taken off Cymbalta and restarted on Ef fexor.He was instructed to follow up with OP provider on the Thus following discharge. Psychiatry consulted for depression. Today, pt is seen resting in bed, preparing to leave for endoscopy, pt is alert and oriented x 3, and is cooperative with interview. He reports he did not follow up OP after discharge on 11/27 to discuss restart of medications. He endorses anxiety and depression and would like to be restarted on something to help. Pt denies any suicidal/homicidal ideation, intent or plan. No dontrell noted and no s/s of psychosis. Discussed Pristiq and pt is in agreement. Discussed restart of risperidone 0.5 mg BID and will monitor closely for any impact to LFTs. Medication options were reviewed; Education performed on risks, benefits, side effects, expectations of treatment, importance of compliance, risks of declining treatment, as well as alternative treatments. Patient given ample time to ask questions and review any concerns. Past Psychiatric History: Previous diagnoses: depression, anxiety, panic Past/Current mental health outpatient care includes: [facility], past [facility] Previous psychiatric hospitalizations: yes, 2022 [facility] Previous suicide attempts: No History of self-injurious behavior:No History of violence: No Past psychiatric medications include: Effexor, olanzapine, risperidone, Catapres, Prozac, Cymbalta,doxepin, trazodone, and Zoloft REVIEW OF SYSTEMS: MEDICAL REVIEW OF SYMPTOMS: Review of Systems Respiratory: Negative for shortness of breath. Cardiovascular: Negative for chest pain. Gastrointestinal: Positive for abdominal pain. Neurological: Negative for speech difficulty. All other systems reviewed and are negative. Medications: Current Facility Administered Medications: Current Facility-Administered Medications: [Transfer Hold] cloNIDine (Catapres) tablet 0.1 mg, 0.1 mg, Oral, q8h PRN, Dov Vanegas MD [START ON 12/15/2023] desvenlafaxine (Pristiq) 24 hr tablet 50 mg, 50 mg, Oral, Daily, Fatuma Hess, CARDIOTHORACIC ICU RN - [employer] [Transfer Hold] doxepin (SINEquan) capsule 10 mg, 10 mg, Oral, Nightly, Dov Vanegas MD [Transfer Hold] folic acid (Folvite) tablet 1 mg, 1 mg, Oral, Daily, Tania Payne DO, 1 mg at 12/14/23 0819 [Transfer Hold] labetalol (Normodyne,Trandate) injection 10 mg, 10 mg, IntraVENous, q6h PRN, MD Lauri [Transfer Hold] LORazepam (Ativan) tablet 1 mg, 1 mg, Oral, q1h PRN OR [Transfer Hold] LORazepam (Ativan) injection 1 mg, 1 mg, IntraVENous, q1h PRN OR [Transfer Hold] LORazepam (Ativan) tablet 2 mg, 2 mg, Oral, q1h PRN OR [Transfer Hold] LORazepam (Ativan) injection 2 mg, 2 mg, IntraVENous, q1h PRN, 2 mg at 12/14/23 0819 OR [DISCONTINUED] LORazepam (Ativan) tablet 3 mg, 3 mg, Oral, q1h PRN OR [DISCONTINUED] LORazepam (Ativan) injection 3 mg, 3 mg, IntraVENous, q1h PRN, 3 mgat 12/13/23 2251 OR [DISCONTINUED] LORazepam (Ativan) tablet 4 mg, 4 mg, Oral, q1h PRN OR [DISCONTINUED] LORazepam (Ativan) injection 4 mg, 4 mg, IntraVENous, q1h PRN, Tania Payne DO [Transfer Hold] LORazepam (Ativan) tablet 2 mg, 2 mg, Oral, q4h PRN, Ant Carty MD [Transfer Hold] melatonin tablet 5 mg, 5 mg, Oral, Nightly, Dov Vanegas MD [Transfer Hold] methocarbamol (Robaxin) tablet 1,000 mg, 1,000 mg, Oral, q6h PRN, Dov Vanegas MD [Transfer Hold] metoprolol succinate XL (Toprol-XL) 24 hr tablet 50 mg, 50 mg, Oral, Daily, Ant Carty MD, 50 mg at 12/14/23 0819 [Transfer Hold] naloxone (Narcan) injection 0.4 mg, 0.4 mg, IntraVENous, q5 min PRN, Ant Carty MD [Transfer Hold] ondansetron ODT (Zofran-ODT) disintegrating tablet 4 mg, 4 mg, Oral, q8h PRN, Dov Huggins MD [Transfer Hold] oxyCODONE (Roxicodone) immediate release tablet 5 mg, 5 mg, Oral, q6h PRN, Ant Carty MD [Transfer Hold] pantoprazole (ProtoNix) 40 mg in sodium chloride (PF) 0.9 % 10 mL injection, 40 mg,IntraVENous, BID, Maxwell Esposito MD [Transfer Hold] PHENobarbital tablet 97.2 mg, 97.2 mg, Oral, Q4H, Dov Vanegas MD, 97.2 mg at 12/14/23 1029 [Transfer Hold] polyethylene glycol (PEG) 3350 (Miralax) packet 17 g, 17 g, Oral, Daily PRN, MD Lauri risperiDONE (RisperDAL) tablet 0.5 mg, 0.5 mg, Oral, Nightly, Fatuma Hess APRN - [employer] sodium chloride 0.9 % infusion, 100 mL/hr, IntraVENous, Continuous, Maxwell Esposito MD, Last Rate: 100 mL/hr at 12/14/23818, 100 mL/hr at 12/14/23818 [Transfer Hold] thiamine (Vitamin B1) tablet 100 mg, 100 mg, Oral, Daily, Tania Payne DO, 100 mg at 12/14/23818 Medications Prior to Admission: Current Outpatient Medications Medication Instructions cloNIDine (CATAPRES) 0.1 mg, Oral, 3 times daily hydrOXYzine HCl (ATARAX) 50 mg, Oral, 2 times daily PRN melatonin 5 mg, Oral, Nightly PRN metoprolol succinate XL (TOPROL-XL) 50 mg, Oral, Daily, Do not crush or chew. omeprazole (PRILOSEC) 20 mg, Oral, Daily before breakfast, Do not crush or chew. Allergies: No Known Allergies History: Past Medical History: Diagnosis Date Alcohol withdrawal syndrome without complication ([facility]) 06/27/2022 Alcohol withdrawal with inpatient treatment, uncomplicated ([facility]) 03/15/2022 GERD (gastroesophageal reflux disease) History of pancreatitis 01/07/2023 Hypertension Pancreatitis Seizures ([facility]) SVT (supraventricular tachycardia) ([facility]) Tourette syndrome Past Surgical History: Procedure Laterality Date APPENDECTOMY Family History Problem Relation Name Age of Onset No Known Problems Mother No Known Problems Father Social History: Single, lives in [place], no family support. Has GED, unemployed. No service Social History Tobacco Use Smoking status: Every Day Current packs/day: 1.00 Types: Cigarettes Smokeless tobacco: Never Vaping Use Vaping status: Never Used Substance Use Topics Alcohol use: Yes Comment: 2/5 vodka daily Drug use: Not Currently Types: Cocaine, Methamphetamines, Oxycodone, Fentanyl, Heroin, Benzodiazepines Social Drivers of Health Tobacco Use: High Risk (12/14/2023) Patient History Smoking Tobacco Use: Every Day Smokeless Tobacco Use: Never Passive Exposure: Not on file Alcohol Use: Alcohol Misuse (12/14/2023) AUDIT-C Frequency of Alcohol Consumption: 4 or more times a week Average Number of Drinks: 7 to 9 Frequency of Binge Drinking: Daily or almost daily Financial Resource Strain: High Risk (10/16/2023) Overall Financial Resource Strain (CARDIA) Difficulty of Paying Living Expenses: Very hard Food Insecurity: Food Insecurity Present (10/16/2023) Hunger Vital Sign Worried About Running Out of Food in the Last Year: Often true Ran Out of Food in the Last Year: Often true Transportation Needs: No Transportation Needs (10/16/2023) PRAPARE - Transportation Lack of Transportation (Medical): No Lack of Transportation (Non-Medical): No Physical Activity: Inactive (10/16/2023) Exercise Vital Sign Days of Exercise per Week: 0 days Minutes of Exercise per Session: 0 min Stress: Stress Concern Present (10/16/2023) [employer] - Occupational Stress Questionnaire Feeling of Stress : Very much Social Connections: Socially Isolated (10/16/2023) Social Connection and Isolation Panel [NHANES] Frequency of Communication with Friends and Family: Never Frequency of Social Gatherings with Friends and Family: Never Attends Amish Services: Never Active Member of Clubs or Organizations: No Attends Club or Organization Meetings: Never Marital Status: Never Intimate Partner Violence: Not At Risk (12/14/2023) Humiliation, Afraid, Rape, and Kick questionnaire Fear of Current or Ex-Partner: No Emotionally Abused: No Physically Abused: No Sexually Abused: No Depression: Moderately severe depression (08/11/2023) PHQ-9 PHQ-9 Score: 15 Housing Stability: High Risk (10/16/2023) Housing Stability Vital Sign Unable to Pay for Housing in the Last Year: Yes Number of Times Moved in the Last Year: 2 Homeless in the Last Year: Yes Utilities: Patient Declined (10/16/2023) [facility] Utilities Threatened with loss of utilities: Patient declined Health Literacy: Patient Declined (10/16/2023) B1300 Health Literacy Frequency of need for help with medical instructions: Patient declines to respond Substance Use History: ETOH: 1/5 vodka daily Illicit Drugs: cocaine and methamphetamine, hx of opioids and fentanyl, on Suboxone daily Nicotine/Tobacco: 1 ppd Urine Drug Screen: ETOH 0.435, Utox negative OBJECTIVE: PHYSICAL EXAM: Vitals: Vitals: 12/14/23 1047 12/14/23 1200 12/14/23 1335 12/14/23 1354 BP: 160/69 (!) 154/94 (!) 160/89 BP Location: Patient Position: Pulse: 109 83 91 99 Resp: 18 16 Temp: 36.8 C (98.2 F) 37 C (98.6 F) TempSrc: Temporal SpO2: 100% 100% Weight: Height: Physical Exam: Physical Exam Vitals and nursing note reviewed. Constitutional: General: He is not in acute distress. Appearance: He is ill-appearing. HENT: Head: Normocephalic and atraumatic. Cardiovascular: Rate and Rhythm: Normal rate. Pulmonary: Effort: Pulmonary effort is normal. No respiratory distress. Neurological: Mental Status: He is alert and oriented to person, place, and time. Psychiatric: Attention and Perception: Attention and perception normal. Mood and Affect: Mood is anxious and depressed. Speech: Speech normal. Behavior: Behavior normal. Behavior is cooperative. Thought Content: Thought content normal. Cognition and Memory: Cognition and memory normal. Labs: I reviewed pertinent laboratory results, radiographic results, Most recent EKG, and Other Clinical Notes at the time of today's encounter. Recent Results (from the past 72 hours) SARS-CoV-2 Antigen Collection Time: 12/13/23 11:59 AM Specimen: Nose; Swab Result Value Ref Range SARS-CoV-2 Antigen Negative Negative CBC auto differential Collection Time: 12/13/23 11:59 AM Result Value Ref Range Auto WBC 12.1 (H) 3.6 - 10.7 10*3/uL RBC 4.65 4.40 - 5.90 10*6/uL Hemoglobin 14.3 13.0 - 18.0 g/dL Hematocrit 43.7 40.0 - 52.0 % MCV 94.0 77.0 - 99.0 fL MCH 30.8 26.0 - 34.0 pg MCHC 32.7 30.5 - 36.0 % RDW 14.4 11.5 - 15.0 % Platelets 423 140 - 440 10*3/uL MPV 10.2 9.0 - 12.7 fL Man Differential Collection Time: 12/13/23 11:59 AM Result Value Ref Range Adjusted WBC 12.1 (H) 3.6 - 10.7 10*3/uL Neutrophils % 29 (L) 38 - 82 % Lymphocytes % 67 (H) 15 - 45 % Monocytes % 3 (L) 5 - 13 % Basophils % 1 0 - 2 % Absolute Neutrophil Count 3.5 1.8 - 7.0 10*3/uL Lymphocytes Absolute 8.1 (H) 1.0 - 4.3 10*3/uL Monocytes Absolute 0.4 0.0 - 0.9 10*3/uL Basophils Absolute 0.1 0.0 - 0.2 10*3/uL RBC Morphology Normal WBC Morphology Normal PLT Morphology Normal Total Counted 100 Neutrophils Manual 29 Lymphocytes Manual 67 Monocytes Manual 3 Basophils Manual 1 Differential Method Manual differential performed Drug screen panel, emergency Collection Time: 12/13/23 12:00 PM Result Value Ref Range AMPHETAMINE SCREEN Negative BARBITURATES SCREEN Negative BENZODIAZEPINE SCREEN Negative COCAINE METAB. SCREEN Negative METHADONE SCREEN Negative OPIATES SCREEN Negative OXYCODONE SCREEN Negative PHENCYCLIDINE SCREEN Negative Urinalysis with reflex microscopic Collection Time: 12/13/23 12:00 PM Result Value Ref Range Color, Urine Light Yellow Lt. Yellow Clarity, Urine Clear Clear pH, Urine 6.5 5.0 - 8.0 pH Leukocytes, Urine Negative Negative Teofilo/uL Nitrite, Urine Negative Negative Protein, Urine Negative Negative mg/dL Glucose, Urine Normal Normal (<70) mg/dL Bilirubin, Urine Negative Negative mg/dL Ketones, Urine Negative Negative mg/dL Urobilinogen, Urine Normal Normal (0-1) mg/dL Blood, Urine 0.03 (A) Negative mg/dL RBC, Urine 0-2 0 - 2 /HPF WBC, Urine 0-2 0 - 5 /HPF Squamous Epithelial, Urine Negative 3 - 5 /HPF Bacteria, Urine Few (A) Negative /HPF SPECIFIC GRAVITY OF URINE (NUMERIC) 1.004 (L) 1.005 - 1.030 Ethanol Collection Time: 12/13/23 12:42 PM Result Value Ref Range ETHANOL IN SER/PLAS 0.435 (HH) 0.000 - 0.010 g/dL Comprehensive metabolic panel Collection Time: 12/13/23 12:42 PM Result Value Ref Range SODIUM 145 135 - 145 mmol/L POTASSIUM 4.0 3.5 - 5.1 mmol/L CHLORIDE 103 98 - 107 mmol/L CARBON DIOXIDE 20 (L) 22 - 30 mmol/L ANION GAP 23 (H) 3 - 13 mmol/L UREA NITROGEN 5 (L) 9 - 20 mg/dL CREATININE 0.60 (L) 0.66 - 1.25 mg/dL GLUCOSE 116 (H) 70 - 100 mg/dL CALCIUM 9.5 8.4 - 10.4 mg/dL AST (SGOT) 186 (H) 15 - 46 U/L ALT 141 (H) 0 - 49 U/L ALKALINE PHOSPHATASE 171 (H) 38 - 126 U/L ALBUMIN 4.9 3.5 - 5.0 g/dL BILIRUBIN, TOTAL 0.9 0.2 - 1.3 mg/dL TOTAL PROTEIN 8.3 (H) 6.3 - 8.2 g/dL eGFR >90.0 >60.0 mL/min/1.73m*2 Lipase Collection Time: 12/13/23 12:42 PM Result Value Ref Range LIPASE 78 23 - 300 U/L ECG 12 lead Collection Time: 12/13/23 12:42 PM Result Value Ref Range Heart Rate 91 bpm QRSD Interval 97 ms QT Interval 373 ms QTC Interval 459 ms P [place] 53 degrees QRS [place] -11 degrees T Wave [place] -5 degrees ME Interval 148 ms Basic metabolic panel Collection Time: 12/13/23 11:25 PM Result Value Ref Range SODIUM 145 135 - 145 mmol/L POTASSIUM 3.9 3.5 - 5.1 mmol/L CHLORIDE 106 98 - 107 mmol/L CARBON DIOXIDE 22 22 - 30 mmol/L UREA NITROGEN 6 (L) 9 - 20 mg/dL CREATININE 0.71 0.66 - 1.25 mg/dL GLUCOSE 110 (H) 70 - 100 mg/dL CALCIUM 8.9 8.4 - 10.4 mg/dL ANION GAP 16 (H) 3 - 13 mmol/L eGFR >90.0 >60.0 mL/min/1.73m*2 Mental Status Exam: MSE: Level of consciousness: Alert Orientation: Person Appearance: Appropriate ; appears stated age Gait: Did Not Observe Behavior: Cooperative Eye contact: good Motor Activity: WNL Speech: WNL Mood: Depressed/Sad and Anxious Affect: Mood Congruent Thought Process: Organized Thought Content: Denies Suicidal/Homicidal Ideation, Intent, or Plan Thought Perception: WNL Fund of Knowledge: appropriate for education level Attention/Concentration: WNL Cognition: WNL Memory: WNL Insight: Poor Judgement: Poor ASSESSMENT: Patient Active Problem List Diagnosis GERD (gastroesophageal reflux disease) Hypertension SVT (supraventricular tachycardia) (HCC) Tourette syndrome Alcohol induced acute pancreatitis without necrosis or infection Polysubstance use disorder Cocaine abuse (HCC) Elevated liver enzymes Panic disorder Alcohol abuse Benzodiazepine withdrawal with complication (HCC) Opioid withdrawal (HCC) Amphetamine withdrawal (HCC) Pneumonia Palpitations Other specified abnormal findings of blood chemistry Dermatitis Depression Positive 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 History of pancreatitis Severe alcohol use disorder (HCC) Severe opioid use disorder on maintenance therapy (HCC) Severe episode of recurrent major depressive disorder, without psychotic features (HCC) Acute recurrent pancreatitis Acute pancreatitis without infection or necrosis Moderate malnutrition (CMS/HCC) (HCC) Alcoholic intoxication without complication (CMS/HCC) (HCC) Hematemesis of unknown etiology Mood Disorder, unspecified Polysubstance Use Disorder PLAN: RECOMMENDATIONS: Disposition: Pt is accepting of medical care, denies suicidal/homicidal ideation, intent or plan, and no noted dontrell or psychosis. Pt does not meet criteria for inpatient psychiatric hospitalization. Medications: will restart low dose risperidone and pristiq and monitor LFTs. Labs: per primary Delirium precautions: Avoid sedating/anticholinergic medications, encourage sleep hygiene, minimizebarriers to nutrition, optimize sensory input and access to assistive devices (dentures, glasses, etc) where indicated, encourage time up in chair as able, D/c Floyd, restraints, IV lines, as able and reserve agitation PRNs for instances where patient is danger to self/others/treatment. Recommendations shared with primary team. Follow up: psychiatry will follow On this day, 12/14/23 , I spent total time 55 minutes preparing to see the pt, reviewing previous notes, obtaining/reviewing separately obtained, history, test results, coordinating care with hospital staff, counseling/educating the patient/family/caregiver and face to face with the patient discussing the diagnosis, current symptom burden, medication side effects, medication change options, and importance of compliance with the treatment plan as well as documenting all relevant and pertinent clinical information in the patient's electronic record on the day of the visit. documented in this [facility]11-04-2024 Consult note* Hari Kline MD - 12/14/2023 11:01 AM ESTAssociated Order(s): IP CONSULT TO GI Department of Internal Medicine Gastroenterology Attending Consult Note Reason for Consult: The patient was seen in consultation at the request of Dr. Vaibhav Arreola re: Alcohol use disorder, admitted last month to [facility] for pancreatitis/alcohol abuse,psychiatric medication was discontinued due to abnormal LFT, patient has significant history of depression CHIEF COMPLAINT: Alcohol Intoxication/Detox History Obtained From: patient HISTORY OF PRESENT ILLNESS: The patient is a 38 y.o. male with significant past medical history of alcohol use disorder, alcohol withdrawal seizure, pancreatitis, GERD, hypertension, SVT, smoking history, depression who presents with alcohol intoxication and hematemesis. Pt was admitted in November 2023 at [facility] following pancreatitis/abnormal LFT, hepatitis panel negative, right upper quadrant ultrasonogram showed severe hepatic steatosis, echo at the time showed EF normal. Psychiatric medication was discontinued due to abnormal LFT during last admission. Patient denies any suicidal ideation Admitted following alcohol intoxication, for detox. Had 3 episode of hematemesis yesterday.Complaining of epigastric abdominal pain. Patient now on CIWA protocol with ativan and CIWA. BP of 160/70. Pulse of 109. Respirations of 18. AST/ALT of 186/141. Alk phos of 171. WBC of 12.1. Hgb of 14.3 and stable. Ethanol level of .435. US abdomen (11/24/23) - diffuse hepatic steatosis. CT abdomen & pelvis (11/22/23) - resolving pancreatitis, hepatic steatosis, splenomegaly. Allergies: Patient has no known allergies. Current Medications: Current Facility-Administered Medications: cloNIDine (Catapres) tablet 0.1 mg, 0.1 mg, Oral, q8h PRN, Dov Vanegas MD doxepin (SINEquan) capsule 10 mg, 10 mg, Oral, Nightly, Dov Vanegas MD folic acid (Folvite) tablet 1 mg, 1 mg, Oral, Daily, Tania Payne DO, 1 mg at 12/14/23 0819 labetalol (Normodyne,Trandate) injection 10 mg, 10 mg, IntraVENous, q6h PRN, Ant Carty MD LORazepam (Ativan) tablet 1 mg, 1 mg, Oral, q1h PRN OR LORazepam (Ativan) injection 1 mg, 1 mg,IntraVENous, q1h PRN OR LORazepam (Ativan) tablet 2 mg, 2 mg, Oral, q1h PRN OR LORazepam (Ativan) injection 2 mg, 2 mg, IntraVENous, q1h PRN, 2 mg at 12/14/23 0819 OR [DISCONTINUED] LORazepam (Ativan) tablet 3 mg, 3 mg, Oral, q1h PRN OR [DISCONTINUED] LORazepam (Ativan) injection 3 mg, 3 mg, IntraVENous, q1h PRN, 3 mg at 12/13/23 2251 OR [DISCONTINUED] LORazepam (Ativan) tablet 4 mg, 4 mg, Oral, q1h PRN OR [DISCONTINUED] LORazepam (Ativan) injection 4 mg, 4 mg, IntraVENous, q1h PRN, Tania Payne DO LORazepam (Ativan) tablet 2 mg, 2 mg, Oral, q4h PRN, Ant Carty MD melatonin tablet 5 mg, 5 mg, Oral, Nightly, Dov Vanegas MD methocarbamol (Robaxin) tablet 1,000 mg, 1,000 mg, Oral, q6h PRN, Dov Vanegas MD metoprolol succinate XL (Toprol-XL) 24 hr tablet 50 mg, 50 mg, Oral, Daily, Ant Carty MD, 50 mg at 12/14/23 0819 naloxone (Narcan) injection 0.4 mg, 0.4 mg, IntraVENous, q5 min PRN, Ant Carty MD ondansetron ODT (Zofran-ODT) disintegrating tablet 4 mg, 4 mg, Oral, q8h PRN, Dov Vanegas MD oxyCODONE (Roxicodone) immediate release tablet 5 mg, 5 mg, Oral, q6h PRN, Ant Carty MD pantoprazole (ProtoNix) 40 mg in sodium chloride (PF) 0.9 % 10 mL injection, 40 mg, IntraVENous, BID, Maxwell Esposito MD PHENobarbital tablet 97.2 mg, 97.2 mg, Oral, Q4H, Dov Vanegas MD, 97.2 mg at 12/14/23 1029 polyethylene glycol (PEG) 3350 (Miralax) packet 17 g, 17 g, Oral, Daily PRN, Ant Carty MD sodium chloride 0.9 % infusion, 100 mL/hr, IntraVENous, Continuous, Maxwell Esposito MD, Last Rate: 100 mL/hr at 12/14/23 08, 100 mL/hr at 12/14/23 08 thiamine (Vitamin B1) tablet 100 mg, 100 mg, Oral, Daily, Tania Payne DO, 100 mg at 12/14/23 08 traZODone (Desyrel) tablet 50 mg, 50 mg, Oral, Nightly PRN, Dov Vanegas MD Past Medical History: Active Ambulatory Problems Diagnosis Date Noted GERD (gastroesophageal reflux disease) 06/06/2018 Hypertension 06/06/2018 SVT (supraventricular tachycardia) ([facility]) 06/06/2018 Tourette syndrome 06/06/2018 Alcohol induced acute pancreatitis without necrosis or infection 03/29/2018 Polysubstance use disorder 03/16/2022 Cocaine abuse ([facility]) 03/16/2022 Elevated liver enzymes 03/16/2022 Panic disorder 03/16/2022 Alcohol abuse 07/11/2022 Benzodiazepine withdrawal with complication ([facility]) 11/04/2022 Opioid withdrawal ([facility]) 11/04/2022 Amphetamine withdrawal ([facility]) 11/04/2022 Pneumonia 11/04/2022 Palpitations 11/04/2022 Other specified abnormal findings of blood chemistry 11/04/2022 Dermatitis 11/04/2022 Depression 11/04/2022 Positive 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 01/07/2023 History of pancreatitis 01/07/2023 Severe alcohol use disorder (HCC) 06/24/2023 Severe opioid use disorder on maintenance therapy (HCC) 08/11/2023 Severe episode of recurrent major depressive disorder, without psychotic features (HCC) 08/11/2023 Acute recurrent pancreatitis 10/16/2023 Acute pancreatitis without infection or necrosis 11/18/2023 Moderate malnutrition (CMS/HCC) (HCC) 11/20/2023 Resolved Ambulatory Problems Diagnosis Date Noted Acute pancreatitis 03/29/2018 Acute pancreatitis without infection or necrosis 06/06/2018 Alcohol withdrawal with inpatient treatment, uncomplicated (HCC) 03/15/2022 Alcohol withdrawal syndrome without complication (HCC) 06/27/2022 Past Medical History: Diagnosis Date Pancreatitis Seizures (HCC) Past Surgical History: Social History Socioeconomic History Marital status: Single Spouse name: Not on file Number of children: Not on file Years of education: Not on file Highest education level: Not on file Occupational History Not on file Tobacco Use Smoking status: Every Day Current packs/day: 1.00 Types: Cigarettes Smokeless tobacco: Never Vaping Use Vaping status: Never Used Substance and Sexual Activity Alcohol use: Yes Comment: 2/5 vodka daily Drug use: Not Currently Types: Cocaine, Methamphetamines, Oxycodone, Fentanyl, Heroin, Benzodiazepines Sexual activity: Not Currently Other Topics Concern Not on file Social History Narrative Not on file Social Drivers of Health Financial Resource Strain: High Risk (10/16/2023) Overall Financial Resource Strain (CARDIA) Difficulty of Paying Living Expenses: Very hard Food Insecurity: Food Insecurity Present (10/16/2023) Hunger Vital Sign Worried About Running Out of Food in the Last Year: Often true Ran Out of Food in the Last Year: Often true Transportation Needs: No Transportation Needs (10/16/2023) PRAPARE - Transportation Lack of Transportation (Medical): No Lack of Transportation (Non-Medical): No Physical Activity: Inactive (10/16/2023) Exercise Vital Sign Days of Exercise per Week: 0 days Minutes of Exercise per Session: 0 min Stress: Stress Concern Present (10/16/2023) [employer] - Occupational Stress Questionnaire Feeling of Stress : Very much Social Connections: Socially Isolated (10/16/2023) Social Connection and Isolation Panel [NHANES] Frequency of Communication with Friends and Family: Never Frequency of Social Gatherings with Friends and Family: Never Attends Amish Services: Never Active Member of Clubs or Organizations: No Attends Club or Organization Meetings: Never Marital Status: Never Intimate Partner Violence: Not At Risk (12/14/2023) Humiliation, Afraid, Rape, and Kick questionnaire Fear of Current or Ex-Partner: No Emotionally Abused: No Physically Abused: No Sexually Abused: No Housing Stability: High Risk (10/16/2023) Housing Stability Vital Sign Unable to Pay for Housing in the Last Year: Yes Number of Times Moved in the Last Year: 2 Homeless in the Last Year: Yes Family History: Family History Problem Relation Name Age of Onset No Known Problems Mother No Known Problems Father No family history colon or stomach cancer. Social History: TOBACCO: reports that he has been smoking cigarettes. He has never used smokeless tobacco. ETOH: reports current alcohol use. DRUGS: reports that he does not currently use drugs after having used the following drugs: Cocaine,Methamphetamines, Oxycodone, Fentanyl, Heroin, and Benzodiazepines. 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 Normal appetite and weight. No CASTILLO, visual disturbance, eye pain, jaundice, sore throat or mouth ulcers. No skin rash or itching. No CP, SOB, PARKER, cough or wheeze. No urinary frequency, urgency, hematuria, or dysuria. No myalgia, arthralgia, or joint swelling. No weakness, numbness, or confusion. GI per HPI. No polyuria, polydipsia, heat or cold intolerance. PHYSICAL EXAM: VS: BP 160/69 Pulse 109 Temp 36.8 C (98.2 F) (Temporal) Resp 18 Ht 5' 10 (1.778 m) Wt 252 lb (114 kg) SpO2 96% BMI 36.16 kg/m Body mass index is 36.16 kg/m . Constitutional: No acute distress. Well-nourished. Well hydrated Head/Eyes: Pupils are equal and round; Conjunctiva are not injected; Sclera are non-icteric. ENT: Ears/nose without external abnormalities. Oral mucosa is pink and moist. Neck: No JVD. No carotid bruits; No thyromegaly. Respiratory: Clear to auscultation bilaterally without any added sounds. Effort is normal Heart: Regular, Normal S1 and S2. No murmur; No added sounds. Abdomen: Normal BS, soft, epigastric tenderness, non-distended; no hepatomegaly. Extremities/Skin: No LE edema; Skin warm to touch and well perfused. Musculoskeletal: Head - normocephalic. Neck - supple Psychiatric: AAO x 3, answers appropriately, normal mood, normal affect. No asterixis. Non-focal. DATA: Recent blood work and relevant radiologic and endoscopic studies were reviewed and discussed with the patient. CBC: Recent Labs 12/13/23 1159 WBC 12.1* RBC 4.65 HGB 14.3 HCT 43.7 MCV 94.0 MCH 30.8 MCHC 32.7 RDW 14.4 PLT 423 MPV 10.2 CMP: Recent Labs 12/13/23 1242 12/13/23 2325 NA 145 145 K 4.0 3.9 CL 103 106 CO2 20* 22 BUN 5* 6* CREATININE 0.60* 0.71 GLUCOSE 116* 110* CALCIUM 9.5 8.9 PROT 8.3* -- BILITOT 0.9 -- ALKPHOS 171* -- AST 186* -- ALT 141* -- PT/INR: No results for input(s): INR in the last 72 hours. Radiologic Review US abdomen (11/24/23) - diffuse hepatic steatosis CT abdomen & pelvis (11/22/23) - resolving pancreatitis, hepatic steatosis, splenomegaly Endoscopic Review None IMPRESSION/RECOMMENDATIONS: #Hematemesis #Epigastric Abdominal Pain #Hepatatic Steatosis #Abnormal LFT #Hx of Pancreatitis #GERD #Concern for Leatha-Fang tear vs esophageal varices vs gastritis/PUD vs esophageal cancer - 3 episode of hematemesis yesterday, hematemesis for 5 days duration - Complaining of epigastric abdominal pain - Patient compliant with home Omeprazole for GERD - Hospital admission for pancreatitis 11/2023 - Hepatitis panel negative - AST/ALT of 186/141. Alk phos of 171, lipase WNL - Hgb of 14.3 and stable - US abdomen (11/24/23) - diffuse hepatic steatosis - CT abdomen & pelvis (11/22/23) - resolving pancreatitis, hepatic steatosis, splenomegaly Plan: - Continue to monitor H&H - Protonix 40 IV daily - Upper endoscopy today permitting patient is stable #Alcohol use disorder, admitted for detox #Hx of Alcohol Withdrawal seizure - AST/ALT of 186/141. Alk phos of 171, lipase WNL - Ethanol level of .435 - Patient states he has been drinking a lot more since he was taken off of psych meds 11/2023 Plan: - WA protocol w Ativan + Phenobarb - Thiamine/Folate - ADM consulted #Hepatatic Steatosis #Abnormal LFT - AST/ALT of 186/141. Alk phos of 171, lipase WNL - Platelets and PT/INR WNL - US abdomen (11/24/23) - diffuse hepatic steatosis #Leukocytosis #Sinus tachycardia on admission - WBC of 12.1, likely reactive 2/2 withdrawal + hematemesis - HR of 109 likely 2/2 acute alcohol withdrawal #Hypertension #Tobacco Abuse - BP of 160s/70s, likely 2/2 acute alcohol withdrawal #Depression - Psychiatric medication was discontinued due to abnormal LFT during last admission - Psych consulted I have personally seen, interviewed, and examined the patient. I have reviewed the case with the Medical Student/Resident/PA and reviewed their consult/progress note. I agree with all of the above. 38 year old male with alcohol hepatitis and alcohol abuse here for evaluation for hemetemesis. Planfor EGD today. Hemoglobin stable. Hari Kline MD, FACG, AGAF Electronically signed by Hari Kline MD 12/14/2023 1:34 PM [facility] [employer] Work Phone: [phone] 514-186811-04-2024 Consult note* JOSÉ ANTONIO Scruggs CNP - 12/14/2023 10:51 AM ESTAssociated Order(s): IP CONSULT TO PSYCHIATRY [facility] Department of Psychiatry Nurse Practitioner Note *Please contact [employer] Psychiatry Listed in [facility] On-Call Finder Thu-Thu: From 1700 - 0800 and on Thursday & Thursday* TODAY'S DATE: 12/14/23 ADMISSION DATE: 12/13/2023 IDENTIFYING INFORMATION Name: Roro Valdivia : 1985 Reason for Consult: Alcohol use disorder, admitted last month to [facility] for pancreatitis/alcohol abuse, psychiatric medication was discontinued due to abnormal LFT, patient has significant history of depression Consulting Practitioner: SEBASTIEN Zambrano Hospital Day: 1 SUBJECTIVE: CHIEF COMPLAINT: CC: Chief Complaint Patient presents with Alcohol Intoxication Brought in by his mother from home. He was recently at [facility] for some time. They discontinued his psych meds due to pancreatitis (ETOH induced). Upon arrival to the room he was not answering questionsbut then was able to do so. He states he does have hallucinations sometimes but denies SI/HI. Is complaining of abdominal pain 11/18. Was having nausea and vomiting in triage and earlier this morning. Pancreatitis Principal Problem: Alcoholic intoxication without complication ([facility]) ([facility]) Psychiatric CC: anxiety and depression For every encounter with this patient, if applicable this Provider wore appropriate PPE including but not limited to standard precautions, N95 mask, surgical mask, gown and/or protective eyewear. Chart reviewed, including notes, labs, imagining, allergies, and medications, all pertinent information discussed with medical staff, nursing, social work, and patient/family if necessary. History obtained from: Patient and Chart Review HISTORY OF PRESENT ILLNESS: HPI: Roro Valdivia is a 38 y.o., male who was hospitalized at [facility] for Alcoholic intoxication without complication ([facility]) ([facility]) on 12/13/2023. PMH of alcohol withdrawal seizures, alcohol withdrawal syndrome, panic attacks/anxiety, history of pancreatitis, polysubstance abuse, GERD, tourette's and SVT. Pt with recent admission to [facility] (11/16-11/27) with elevated LFTs, at that time pt wanted to leave and refused speaking with psychiatry so he agreed to hold all of his mental health medications until he spoke with his OP psychiatrist with addiction medicine perdocumentation. During that hospitalization pt requested to be taken off Cymbalta and restarted on Ef fexor.He was instructed to follow up with OP provider on the following discharge. Psychiatry consulted for depression. Today, pt is seen resting in bed, preparing to leave for endoscopy, pt is alert and oriented x 3, and is cooperative with interview. He reports he did not follow up OP after discharge on 11/27 to discuss restart of medications. He endorses anxiety and depression and would like to be restarted on something to help. Pt denies any suicidal/homicidal ideation, intent or plan. No dontrell noted and no s/s of psychosis. Discussed Pristiq and pt is in agreement. Discussed restart of risperidone 0.5 mg BID and will monitor closely for any impact to LFTs. Medication options were reviewed; Education performed on risks, benefits, side effects, expectations of treatment, importance of compliance, risks of declining treatment, as well as alternative treatments. Patient given ample time to ask questions and review any concerns. Past Psychiatric History: Previous diagnoses: depression, anxiety, panic Past/Current mental health outpatient care includes: [facility], past [facility] Previous psychiatric hospitalizations: yes, 2022 [facility] Previous suicide attempts: No History of self-injurious behavior:No History of violence: No Past psychiatric medications include: Effexor, olanzapine, risperidone, Catapres, Prozac, Cymbalta,doxepin, trazodone, and Zoloft REVIEW OF SYSTEMS: MEDICAL REVIEW OF SYMPTOMS: Review of Systems Respiratory: Negative for shortness of breath. Cardiovascular: Negative for chest pain. Gastrointestinal: Positive for abdominal pain. Neurological: Negative for speech difficulty. All other systems reviewed and are negative. Medications: Current Facility Administered Medications: Current Facility-Administered Medications: [Transfer Hold] cloNIDine (Catapres) tablet 0.1 mg, 0.1 mg, Oral, q8h PRN, Dov Vanegas MD [START ON 12/15/2023] desvenlafaxine (Pristiq) 24 hr tablet 50 mg, 50 mg, Oral, Daily, Fatuma Hess, CARDIOTHORACIC ICU RN - [employer] [Transfer Hold] doxepin (SINEquan) capsule 10 mg, 10 mg, Oral, Nightly, Dov Vanegas MD [Transfer Hold] folic acid (Folvite) tablet 1 mg, 1 mg, Oral, Daily, Tania Payne DO, 1 mg at 12/14/23 0819 [Transfer Hold] labetalol (Normodyne,Trandate) injection 10 mg, 10 mg, IntraVENous, q6h PRN, MD Lauri [Transfer Hold] LORazepam (Ativan) tablet 1 mg, 1 mg, Oral, q1h PRN OR [Transfer Hold] LORazepam (Ativan) injection 1 mg, 1 mg, IntraVENous, q1h PRN OR [Transfer Hold] LORazepam (Ativan) tablet 2 mg, 2 mg, Oral, q1h PRN OR [Transfer Hold] LORazepam (Ativan) injection 2 mg, 2 mg, IntraVENous, q1h PRN, 2 mg at 12/14/23 0819 OR [DISCONTINUED] LORazepam (Ativan) tablet 3 mg, 3 mg, Oral, q1h PRN OR [DISCONTINUED] LORazepam (Ativan) injection 3 mg, 3 mg, IntraVENous, q1h PRN, 3 mgat 12/13/23 2251 OR [DISCONTINUED] LORazepam (Ativan) tablet 4 mg, 4 mg, Oral, q1h PRN OR [DISCONTINUED] LORazepam (Ativan) injection 4 mg, 4 mg, IntraVENous, q1h PRN, Tania Payne DO [Transfer Hold] LORazepam (Ativan) tablet 2 mg, 2 mg, Oral, q4h PRN, Ant Carty MD [Transfer Hold] melatonin tablet 5 mg, 5 mg, Oral, Nightly, Dov Vanegas MD [Transfer Hold] methocarbamol (Robaxin) tablet 1,000 mg, 1,000 mg, Oral, q6h PRN, Dov Vanegas MD [Transfer Hold] metoprolol succinate XL (Toprol-XL) 24 hr tablet 50 mg, 50 mg, Oral, Daily, Ant Carty MD, 50 mg at 12/14/23 0819 [Transfer Hold] naloxone (Narcan) injection 0.4 mg, 0.4 mg, IntraVENous, q5 min PRN, Ant Carty MD [Transfer Hold] ondansetron ODT (Zofran-ODT) disintegrating tablet 4 mg, 4 mg, Oral, q8h PRN, Dov Huggins MD [Transfer Hold] oxyCODONE (Roxicodone) immediate release tablet 5 mg, 5 mg, Oral, q6h PRN, Ant Carty MD [Transfer Hold] pantoprazole (ProtoNix) 40 mg in sodium chloride (PF) 0.9 % 10 mL injection, 40 mg,IntraVENous, BID, Maxwell Esposito MD [Transfer Hold] PHENobarbital tablet 97.2 mg, 97.2 mg, Oral, Q4H, Dov Vanegas MD, 97.2 mg at 12/14/23 1029 [Transfer Hold] polyethylene glycol (PEG) 3350 (Miralax) packet 17 g, 17 g, Oral, Daily PRN, MD Lauri risperiDONE (RisperDAL) tablet 0.5 mg, 0.5 mg, Oral, Nightly, Fatuma Hess, CARDIOTHORACIC ICU RN - [employer] sodium chloride 0.9 % infusion, 100 mL/hr, IntraVENous, Continuous, Maxwell Esposito MD, Last Rate: 100 mL/hr at 12/14/23818, 100 mL/hr at 12/14/23818 [Transfer Hold] thiamine (Vitamin B1) tablet 100 mg, 100 mg, Oral, Daily, Tania Payne DO, 100 mg at 12/14/23818 Medications Prior to Admission: Current Outpatient Medications Medication Instructions cloNIDine (CATAPRES) 0.1 mg, Oral, 3 times daily hydrOXYzine HCl (ATARAX) 50 mg, Oral, 2 times daily PRN melatonin 5 mg, Oral, Nightly PRN metoprolol succinate XL (TOPROL-XL) 50 mg, Oral, Daily, Do not crush or chew. omeprazole (PRILOSEC) 20 mg, Oral, Daily before breakfast, Do not crush or chew. Allergies: No Known Allergies History: Past Medical History: Diagnosis Date Alcohol withdrawal syndrome without complication ([facility]) 06/27/2022 Alcohol withdrawal with inpatient treatment, uncomplicated ([facility]) 03/15/2022 GERD (gastroesophageal reflux disease) History of pancreatitis 01/07/2023 Hypertension Pancreatitis Seizures ([facility]) SVT (supraventricular tachycardia) ([facility]) Tourette syndrome Past Surgical History: Procedure Laterality Date APPENDECTOMY Family History Problem Relation Name Age of Onset No Known Problems Mother No Known Problems Father Social History: Single, lives in [place], no family support. Has GED, unemployed. No service Social History Tobacco Use Smoking status: Every Day Current packs/day: 1.00 Types: Cigarettes Smokeless tobacco: Never Vaping Use Vaping status: Never Used Substance Use Topics Alcohol use: Yes Comment: 2/5 vodka daily Drug use: Not Currently Types: Cocaine, Methamphetamines, Oxycodone, Fentanyl, Heroin, Benzodiazepines Social Drivers of Health Tobacco Use: High Risk (12/14/2023) Patient History Smoking Tobacco Use: Every Day Smokeless Tobacco Use: Never Passive Exposure: Not on file Alcohol Use: Alcohol Misuse (12/14/2023) AUDIT-C Frequency of Alcohol Consumption: 4 or more times a week Average Number of Drinks: 7 to 9 Frequency of Binge Drinking: Daily or almost daily Financial Resource Strain: High Risk (10/16/2023) Overall Financial Resource Strain (CARDIA) Difficulty of Paying Living Expenses: Very hard Food Insecurity: Food Insecurity Present (10/16/2023) Hunger Vital Sign Worried About Running Out of Food in the Last Year: Often true Ran Out of Food in the Last Year: Often true Transportation Needs: No Transportation Needs (10/16/2023) PRAPARE - Transportation Lack of Transportation (Medical): No Lack of Transportation (Non-Medical): No Physical Activity: Inactive (10/16/2023) Exercise Vital Sign Days of Exercise per Week: 0 days Minutes of Exercise per Session: 0 min Stress: Stress Concern Present (10/16/2023) [employer] - Occupational Stress Questionnaire Feeling of Stress : Very much Social Connections: Socially Isolated (10/16/2023) Social Connection and Isolation Panel [NHANES] Frequency of Communication with Friends and Family: Never Frequency of Social Gatherings with Friends and Family: Never Attends Amish Services: Never Active Member of Clubs or Organizations: No Attends Club or Organization Meetings: Never Marital Status: Never Intimate Partner Violence: Not At Risk (12/14/2023) Humiliation, Afraid, Rape, and Kick questionnaire Fear of Current or Ex-Partner: No Emotionally Abused: No Physically Abused: No Sexually Abused: No Depression: Moderately severe depression (08/11/2023) PHQ-9 PHQ-9 Score: 15 Housing Stability: High Risk (10/16/2023) Housing Stability Vital Sign Unable to Pay for Housing in the Last Year: Yes Number of Times Moved in the Last Year: 2 Homeless in the Last Year: Yes Utilities: Patient Declined (10/16/2023) [facility] Utilities Threatened with loss of utilities: Patient declined Health Literacy: Patient Declined (10/16/2023) B1300 Health Literacy Frequency of need for help with medical instructions: Patient declines to respond Substance Use History: ETOH: 1/5 vodka daily Illicit Drugs: cocaine and methamphetamine, hx of opioids and fentanyl, on Suboxone daily Nicotine/Tobacco: 1 ppd Urine Drug Screen: ETOH 0.435, Utox negative OBJECTIVE: PHYSICAL EXAM: Vitals: Vitals: 12/14/23 1047 12/14/23 1200 12/14/23 1335 12/14/23 1354 BP: 160/69 (!) 154/94 (!) 160/89 BP Location: Patient Position: Pulse: 109 83 91 99 Resp: 18 16 Temp: 36.8 C (98.2 F) 37 C (98.6 F) TempSrc: Temporal SpO2: 100% 100% Weight: Height: Physical Exam: Physical Exam Vitals and nursing note reviewed. Constitutional: General: He is not in acute distress. Appearance: He is ill-appearing. HENT: Head: Normocephalic and atraumatic. Cardiovascular: Rate and Rhythm: Normal rate. Pulmonary: Effort: Pulmonary effort is normal. No respiratory distress. Neurological: Mental Status: He is alert and oriented to person, place, and time. Psychiatric: Attention and Perception: Attention and perception normal. Mood and Affect: Mood is anxious and depressed. Speech: Speech normal. Behavior: Behavior normal. Behavior is cooperative. Thought Content: Thought content normal. Cognition and Memory: Cognition and memory normal. Labs: I reviewed pertinent laboratory results, radiographic results, Most recent EKG, and Other Clinical Notes at the time of today's encounter. Recent Results (from the past 72 hours) SARS-CoV-2 Antigen Collection Time: 12/13/23 11:59 AM Specimen: Nose; Swab Result Value Ref Range SARS-CoV-2 Antigen Negative Negative CBC auto differential Collection Time: 12/13/23 11:59 AM Result Value Ref Range Auto WBC 12.1 (H) 3.6 - 10.7 10*3/uL RBC 4.65 4.40 - 5.90 10*6/uL Hemoglobin 14.3 13.0 - 18.0 g/dL Hematocrit 43.7 40.0 - 52.0 % MCV 94.0 77.0 - 99.0 fL MCH 30.8 26.0 - 34.0 pg MCHC 32.7 30.5 - 36.0 % RDW 14.4 11.5 - 15.0 % Platelets 423 140 - 440 10*3/uL MPV 10.2 9.0 - 12.7 fL Man Differential Collection Time: 12/13/23 11:59 AM Result Value Ref Range Adjusted WBC 12.1 (H) 3.6 - 10.7 10*3/uL Neutrophils % 29 (L) 38 - 82 % Lymphocytes % 67 (H) 15 - 45 % Monocytes % 3 (L) 5 - 13 % Basophils % 1 0 - 2 % Absolute Neutrophil Count 3.5 1.8 - 7.0 10*3/uL Lymphocytes Absolute 8.1 (H) 1.0 - 4.3 10*3/uL Monocytes Absolute 0.4 0.0 - 0.9 10*3/uL Basophils Absolute 0.1 0.0 - 0.2 10*3/uL RBC Morphology Normal WBC Morphology Normal PLT Morphology Normal Total Counted 100 Neutrophils Manual 29 Lymphocytes Manual 67 Monocytes Manual 3 Basophils Manual 1 Differential Method Manual differential performed Drug screen panel, emergency Collection Time: 12/13/23 12:00 PM Result Value Ref Range AMPHETAMINE SCREEN Negative BARBITURATES SCREEN Negative BENZODIAZEPINE SCREEN Negative COCAINE METAB. SCREEN Negative METHADONE SCREEN Negative OPIATES SCREEN Negative OXYCODONE SCREEN Negative PHENCYCLIDINE SCREEN Negative Urinalysis with reflex microscopic Collection Time: 12/13/23 12:00 PM Result Value Ref Range Color, Urine Light Yellow Lt. Yellow Clarity, Urine Clear Clear pH, Urine 6.5 5.0 - 8.0 pH Leukocytes, Urine Negative Negative Teofilo/uL Nitrite, Urine Negative Negative Protein, Urine Negative Negative mg/dL Glucose, Urine Normal Normal (<70) mg/dL Bilirubin, Urine Negative Negative mg/dL Ketones, Urine Negative Negative mg/dL Urobilinogen, Urine Normal Normal (0-1) mg/dL Blood, Urine 0.03 (A) Negative mg/dL RBC, Urine 0-2 0 - 2 /HPF WBC, Urine 0-2 0 - 5 /HPF Squamous Epithelial, Urine Negative 3 - 5 /HPF Bacteria, Urine Few (A) Negative /HPF SPECIFIC GRAVITY OF URINE (NUMERIC) 1.004 (L) 1.005 - 1.030 Ethanol Collection Time: 12/13/23 12:42 PM Result Value Ref Range ETHANOL IN SER/PLAS 0.435 (HH) 0.000 - 0.010 g/dL Comprehensive metabolic panel Collection Time: 12/13/23 12:42 PM Result Value Ref Range SODIUM 145 135 - 145 mmol/L POTASSIUM 4.0 3.5 - 5.1 mmol/L CHLORIDE 103 98 - 107 mmol/L CARBON DIOXIDE 20 (L) 22 - 30 mmol/L ANION GAP 23 (H) 3 - 13 mmol/L UREA NITROGEN 5 (L) 9 - 20 mg/dL CREATININE 0.60 (L) 0.66 - 1.25 mg/dL GLUCOSE 116 (H) 70 - 100 mg/dL CALCIUM 9.5 8.4 - 10.4 mg/dL AST (SGOT) 186 (H) 15 - 46 U/L ALT 141 (H) 0 - 49 U/L ALKALINE PHOSPHATASE 171 (H) 38 - 126 U/L ALBUMIN 4.9 3.5 - 5.0 g/dL BILIRUBIN, TOTAL 0.9 0.2 - 1.3 mg/dL TOTAL PROTEIN 8.3 (H) 6.3 - 8.2 g/dL eGFR >90.0 >60.0 mL/min/1.73m*2 Lipase Collection Time: 12/13/23 12:42 PM Result Value Ref Range LIPASE 78 23 - 300 U/L ECG 12 lead Collection Time: 12/13/23 12:42 PM Result Value Ref Range Heart Rate 91 bpm QRSD Interval 97 ms QT Interval 373 ms QTC Interval 459 ms P [place] 53 degrees QRS [place] -11 degrees T Wave [place] -5 degrees ME Interval 148 ms Basic metabolic panel Collection Time: 12/13/23 11:25 PM Result Value Ref Range SODIUM 145 135 - 145 mmol/L POTASSIUM 3.9 3.5 - 5.1 mmol/L CHLORIDE 106 98 - 107 mmol/L CARBON DIOXIDE 22 22 - 30 mmol/L UREA NITROGEN 6 (L) 9 - 20 mg/dL CREATININE 0.71 0.66 - 1.25 mg/dL GLUCOSE 110 (H) 70 - 100 mg/dL CALCIUM 8.9 8.4 - 10.4 mg/dL ANION GAP 16 (H) 3 - 13 mmol/L eGFR >90.0 >60.0 mL/min/1.73m*2 Mental Status Exam: MSE: Level of consciousness: Alert Orientation: Person Appearance: Appropriate ; appears stated age Gait: Did Not Observe Behavior: Cooperative Eye contact: good Motor Activity: WNL Speech: WNL Mood: Depressed/Sad and Anxious Affect: Mood Congruent Thought Process: Organized Thought Content: Denies Suicidal/Homicidal Ideation, Intent, or Plan Thought Perception: WNL Fund of Knowledge: appropriate for education level Attention/Concentration: WNL Cognition: WNL Memory: WNL Insight: Poor Judgement: Poor ASSESSMENT: Patient Active Problem List Diagnosis GERD (gastroesophageal reflux disease) Hypertension SVT (supraventricular tachycardia) (HCC) Tourette syndrome Alcohol induced acute pancreatitis without necrosis or infection Polysubstance use disorder Cocaine abuse (HCC) Elevated liver enzymes Panic disorder Alcohol abuse Benzodiazepine withdrawal with complication (HCC) Opioid withdrawal (HCC) Amphetamine withdrawal (HCC) Pneumonia Palpitations Other specified abnormal findings of blood chemistry Dermatitis Depression Positive 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 History of pancreatitis Severe alcohol use disorder (HCC) Severe opioid use disorder on maintenance therapy (HCC) Severe episode of recurrent major depressive disorder, without psychotic features (HCC) Acute recurrent pancreatitis Acute pancreatitis without infection or necrosis Moderate malnutrition (CMS/HCC) (HCC) Alcoholic intoxication without complication (CMS/HCC) (HCC) Hematemesis of unknown etiology Mood Disorder, unspecified Polysubstance Use Disorder PLAN: RECOMMENDATIONS: Disposition: Pt is accepting of medical care, denies suicidal/homicidal ideation, intent or plan, and no noted dontrell or psychosis. Pt does not meet criteria for inpatient psychiatric hospitalization. Medications: will restart low dose risperidone and pristiq and monitor LFTs. Labs: per primary Delirium precautions: Avoid sedating/anticholinergic medications, encourage sleep hygiene, minimizebarriers to nutrition, optimize sensory input and access to assistive devices (dentures, glasses, etc) where indicated, encourage time up in chair as able, D/c Floyd, restraints, IV lines, as able and reserve agitation PRNs for instances where patient is danger to self/others/treatment. Recommendations shared with primary team. Follow up: psychiatry will follow On this day, 12/14/23 , I spent total time 55 minutes preparing to see the pt, reviewing previous notes, obtaining/reviewing separately obtained, history, test results, coordinating care with hospital staff, counseling/educating the patient/family/caregiver and face to face with the patient discussing the diagnosis, current symptom burden, medication side effects, medication change options, and importance of compliance with the treatment plan as well as documenting all relevant and pertinent clinical information in the patient's electronic record on the day of the visit. [id number] Discharge instructions* Discharge Instr - Activity* Maxwell Esposito MD - 12/14/2023 9:40 AM EST As tolerated * Discharge Instr - Diet* Maxwell Esposito MD - 12/14/2023 9:40 AM EST Regular diet * Attachments The following attachments cannot be sent through Care Everywhere. * Upper GI Endoscopy Discharge Instructions ([place] Korean) documented in this [facility]11-04-2024 Emergency department Note* Debby Solomon - 12/14/2023 7:44 AM EST [address]IENT ON WAY TO ANOTHER FLOOR [id number] Emergency [facility] Note* Debby Solomon - 12/14/2023 7:44 AM EST PATIENT ON WAY TO ANOTHER FLOOR * Janine Lino RN - 12/14/2023 6:44 AM EST Patient telemetry admission -- awaiting telemetry transport to the floor at this time * Janine Lino RN - 12/14/2023 6:22 AM EST Report called to RN on 3N at this time. Pt vitals stable and pt is ready to be put in for transport * Violeta Edmonds - 12/14/2023 5:13 AM EST Pt given water by Apolonia ARAUZ. * Timothy Saavedra MA - 12/14/2023 2:40 AM EST Violeta jordan in obtaining new VS. * Jainne Lino RN - 12/13/2023 11:18 PM EST Assumed care of pt for lunch coverage from Clementine RN * Violeta Edmonds - 12/13/2023 11:05 PM EST at bedside. * MARIXA Sharif - 12/13/2023 10:49 PM EST Clementine SHI at bedside. * Violeta Edmonds - 12/13/2023 10:32 PM EST Pt stated to Savanna Jordan that he is having a panic attack. Apolonia ARAUZ at bedside. * Violeta Edmonds - 12/13/2023 10:11 PM EST Pt given ada rand by Apolonia ARAUZ. * MARIXA Sharif - 12/13/2023 6:18 PM EST DAYSI Parr at bedside taking vitals. * MARIXA Sharif - 12/13/2023 6:07 PM EST Pt spilled beverage on the floor. Floor cleaned up by electrical mechanical technician Karolyn. * Karolyn Mera - 12/13/2023 5:40 PM EST Pt at this time does not want to eat. * Mary Houston - 12/13/2023 5:34 PM EST Refused Dinner Tray * Mary Houston - 12/13/2023 4:49 PM EST JOSE GUADALUPE De La Fuente At Pt Bedside * Mary Houston - 12/13/2023 4:04 PM EST NST Savanna At Pt Bedside Providing Pt With Another Urinal And Assisting Pt Back Into Bed, Cleaning UpUrine * Mary Houston - 12/13/2023 3:43 PM EST JOSE GUADALUPE De La Fuente At Pt Bedside To Disconnect Fluids * Mary Houston - 12/13/2023 3:38 PM EST Juliet Parr At Pt Bedside To Provide Pt With Urinal * Karolyn Mera - 12/13/2023 2:20 PM EST Roro SHI at bedside * Karolyn Mera - 12/13/2023 2:13 PM EST Pt calling out help, Tyree SHI to see what pt needs * Karolyn Mera - 12/13/2023 1:47 PM EST Tyree SHI at bedside * Roro Bryant RN - 12/13/2023 12:52 PM EST Straight cath complete tolerated well. * Roro Bryant RN - 12/13/2023 12:47 PM EST Blood redrawn and sent to lab, tolerated well. * Socorro Lozada - 12/13/2023 12:37 PM EST EKG at bedside. * Roro Bryant RN - 12/13/2023 12:36 PM EST Patient did not want his mother in the room to sit with him. * Mary Houston - 12/13/2023 12:16 PM EST JOSE GUADALUPE De La Fuente At Pt Bedside To Assist With Getting A Urine Sample Through A Straight Catheter * Mary Houston - 12/13/2023 12:12 PM EST JOSE GUADALUPE De La Fuente At Pt Bedside * Mary Houston - 12/13/2023 12:06 PM EST JOSE GUADALUPE De La Fuente At Pt Bedside To Check Vitals * Mary Houston - 12/13/2023 11:55 AM EST Pt Changed Into Hospital Gowns And Socks. Skin Assessment Completed By JOSE GUADALUPE De La Fuente. Pt Wanded By Protective Services, 1 Bag Of Belongings Locked Into Cabinet. * Mary Houston - 12/13/2023 11:49 AM EST JOSE GUADALUPE De La Fuente& Carissa Forrester At Pt Bedside For Triage Process * Mary Houston - 12/13/2023 11:43 AM EST Pt To Room 53 * Mary Houston - 12/13/2023 11:43 AM EST JOSE GUADALUPE De La Fuente & Carissa Forrester At Pt Bedside For IV Insertion * Idris Danielson MD - 12/13/2023 11:39 AM EST Emergency Department Encounter [facility] EMERGENCY DEPT Patient: Roro Valdivia : 1985 Date of Evaluation: 12/13/2023 ED Supervising Physician: Idris Danielson MD I personally saw Roro Valdivia and made/approved the management plan and take responsibility for the patient management. This will serve as my Supervisory note and shared attestation. I did performa substantive portion of the visit including all aspects of the Medical Decision Making. HPI: In brief, Roro Valdivia is a 38 y.o. male PMH per EMR including prior pancreatitis, chart syndrome, seizures, alcohol withdrawal, cocaine abuse, presents with concern for abdominal pain. Patient reports for the last 3 days has had epigastric abdominal pain with associated nausea vomiting, has been drinking large quantities of alcohol, not been taking home medications, he denies fever chills, cough, chest pain, shortness of breath, he denies intention to harm self or others, suicidal homicidalideation, patient provides limited additional history. Physical Exam: General: no apparent distress or discomfort, nontoxic appearing, no active emesis HEENT: airway patent, mucous membranes moist Cardiovascular: regular rhythm, normal rate Respiratory: non-labored breathing, breath sounds clear, no wheeze crackles or rhonchi Gastrointestinal: soft, non-distended, minimal tenderness to palpation in epigastrium, abdomen otherwise nontender throughout, no rigidity guarding Extremities: no obvious deformity, non edematous Neurologic: Alert, slurred speech, follows commands, moves all extremities Psych: Calm, cooperative, no SI or HI Brief ED course/MDM: Patient presents as above, with epigastric abdominal pain nausea vomiting, discloses large quantityalcohol use, he is clinically intoxicated, afebrile hypertensive borderline tachycardic otherwise reassuring vitals, nontoxic, abdominal exam nonperitoneal, minimal tenderness to the epigastrium concerning for acute pancreatitis, gastritis, denies SI or HI, will obtain workup to evaluate including labs, EKG, will treat with Zofran, IV fluids, further management and disposition pending workup results and sober reevaluation. Labs obtained, interpreted by me, notable for no renal dysfunction, bicarb 20, glucose 116, transaminitis with elevated alk phos improved from prior evaluation, lipase 78, WBC 12.1, UA no UTI, ethanol 0.435 EKG obtained, per my interpretation, notable for sinus rhythm, LVH by voltage, no acute ischemic STsegment changes Will continue to monitor until clinical sobriety, will require sober reevaluation to determine further management and disposition including need for psychiatric consultation/admission All diagnostic, treatment, and disposition decisions were made by myself in conjunction with the resident. I also supervised erickson portions of any procedures performed by the Resident. For all further details of the patient's emergency department visit, please see their documentation. (Comment: Please note this report has been produced using speech recognition software and may contain errors related to that system including errors in grammar, punctuation, and spelling, as well as words and phrases that may be inappropriate. If there are any questions or concerns please feel freeto contact the dictating provider for clarification.) Idris Danielson MD [employer] Idris Danielson MD 12/13/23 1432 * Mattie Durbin DO - 12/13/2023 11:39 AM EST Emergency Department Encounter Location: [facility] EMERGENCY DEPT Patient: Roro Valdivia : 1985 Date of evaluation: 12/13/2023 ED Provider: Mattie Durbin DO Time received sign-out: Dr Danielson Roro Valdivia was checked out to me by 1500. Please see his/her initial documentation for detailsof the patient's initial ED presentation, physical exam and completed studies. In brief, Roro Valdivia is a 38 y.o. adult that presented to the emergency department with alcohol intoxication and endorsing abdominal pain. He was poor historian due to intoxication and had an ethanol level of 435. He was signed out to me pending reevaluation when sober. I have reviewed and interpreted all of the currently available lab results and diagnostics from this visit: Results for orders placed or performed during the hospital encounter of 12/13/23 SARS-CoV-2 Antigen Collection Time: 12/13/23 11:59 AM Specimen: Nose; Swab Result Value Ref Range SARS-CoV-2 Antigen Negative Negative CBC auto differential Collection Time: 12/13/23 11:59 AM Result Value Ref Range Auto WBC 12.1 (H) 3.6 - 10.7 10*3/uL RBC 4.65 4.40 - 5.90 10*6/uL Hemoglobin 14.3 13.0 - 18.0 g/dL Hematocrit 43.7 40.0 - 52.0 % MCV 94.0 77.0 - 99.0 fL MCH 30.8 26.0 - 34.0 pg MCHC 32.7 30.5 - 36.0 % RDW 14.4 11.5 - 15.0 % Platelets 423 140 - 440 10*3/uL MPV 10.2 9.0 - 12.7 fL Man Differential Collection Time: 12/13/23 11:59 AM Result Value Ref Range Adjusted WBC 12.1 (H) 3.6 - 10.7 10*3/uL Neutrophils % 29 (L) 38 - 82 % Lymphocytes % 67 (H) 15 - 45 % Monocytes % 3 (L) 5 - 13 % Basophils % 1 0 - 2 % Absolute Neutrophil Count 3.5 1.8 - 7.0 10*3/uL Lymphocytes Absolute 8.1 (H) 1.0 - 4.3 10*3/uL Monocytes Absolute 0.4 0.0 - 0.9 10*3/uL Basophils Absolute 0.1 0.0 - 0.2 10*3/uL RBC Morphology Normal WBC Morphology Normal PLT Morphology Normal Total Counted 100 Neutrophils Manual 29 Lymphocytes Manual 67 Monocytes Manual 3 Basophils Manual 1 Differential Method Manual differential performed Drug screen panel, emergency Collection Time: 12/13/23 12:00 PM Result Value Ref Range AMPHETAMINE SCREEN Negative BARBITURATES SCREEN Negative BENZODIAZEPINE SCREEN Negative COCAINE METAB. SCREEN Negative METHADONE SCREEN Negative OPIATES SCREEN Negative OXYCODONE SCREEN Negative PHENCYCLIDINE SCREEN Negative Urinalysis with reflex microscopic Collection Time: 12/13/23 12:00 PM Result Value Ref Range Color, Urine Light Yellow Lt. Yellow Clarity, Urine Clear Clear pH, Urine 6.5 5.0 - 8.0 pH Leukocytes, Urine Negative Negative Teofilo/uL Nitrite, Urine Negative Negative Protein, Urine Negative Negative mg/dL Glucose, Urine Normal Normal (<70) mg/dL Bilirubin, Urine Negative Negative mg/dL Ketones, Urine Negative Negative mg/dL Urobilinogen, Urine Normal Normal (0-1) mg/dL Blood, Urine 0.03 (A) Negative mg/dL RBC, Urine 0-2 0 - 2 /HPF WBC, Urine 0-2 0 - 5 /HPF Squamous Epithelial, Urine Negative 3 - 5 /HPF Bacteria, Urine Few (A) Negative /HPF SPECIFIC GRAVITY OF URINE (NUMERIC) 1.004 (L) 1.005 - 1.030 Ethanol Collection Time: 12/13/23 12:42 PM Result Value Ref Range ETHANOL IN SER/PLAS 0.435 (HH) 0.000 - 0.010 g/dL Comprehensive metabolic panel Collection Time: 12/13/23 12:42 PM Result Value Ref Range SODIUM 145 135 - 145 mmol/L POTASSIUM 4.0 3.5 - 5.1 mmol/L CHLORIDE 103 98 - 107 mmol/L CARBON DIOXIDE 20 (L) 22 - 30 mmol/L ANION GAP 23 (H) 3 - 13 mmol/L UREA NITROGEN 5 (L) 9 - 20 mg/dL CREATININE 0.60 (L) 0.66 - 1.25 mg/dL GLUCOSE 116 (H) 70 - 100 mg/dL CALCIUM 9.5 8.4 - 10.4 mg/dL AST (SGOT) 186 (H) 15 - 46 U/L ALT 141 (H) 0 - 49 U/L ALKALINE PHOSPHATASE 171 (H) 38 - 126 U/L ALBUMIN 4.9 3.5 - 5.0 g/dL BILIRUBIN, TOTAL 0.9 0.2 - 1.3 mg/dL TOTAL PROTEIN 8.3 (H) 6.3 - 8.2 g/dL eGFR >90.0 >60.0 mL/min/1.73m*2 Lipase Collection Time: 12/13/23 12:42 PM Result Value Ref Range LIPASE 78 23 - 300 U/L ECG 12 lead Collection Time: 12/13/23 12:42 PM Result Value Ref Range Heart Rate 91 bpm QRSD Interval 97 ms QT Interval 373 ms QTC Interval 459 ms P [place] 53 degrees QRS [place] -11 degrees T Wave [place] -5 degrees ME Interval 148 ms No orders to display Final ED Course and MDM: Roro Valdivia is a 38 y.o. whose care was signed out to me by the outgoing provider. In brief, patient presenting to the ED with alcohol intoxication and endorsing abdominal pain. Signed out to me pending reevaluation when sober. To my reevaluation patient does appear more clinically sober however is becoming hypertensive and tachycardic with CIWA of 19. Labs show an anion gap acidosis that is likely due to his ethanol level.We will repeat a BMP and he was started on phenobarbital. Patient requesting admission for detox however has been previously admitted for detox and given that he typically requires high doses of Ativan, phenobarbital and Dilaudid we will admit to medicine with an addiction consult. Medications thiamine (Vitamin B1) tablet 100 mg (100 mg Oral Given 12/13/231419) folic acid (Folvite) tablet 1 mg (1 mg Oral Given 12/13/231419) LORazepam (Ativan) tablet 1 mg ( Oral See Alternative 12/13/232250) Or LORazepam (Ativan) injection 1 mg ( IntraVENous See Alternative 12/13/232250) Or LORazepam (Ativan) tablet 2 mg ( Oral See Alternative 12/13/232250) Or LORazepam (Ativan) injection 2 mg ( IntraVENous See Alternative 12/13/232250) Or LORazepam (Ativan) tablet 3 mg ( Oral See Alternative 12/13/232250) Or LORazepam (Ativan) injection 3 mg (3 mg IntraVENous Given 12/13/232250) Or LORazepam (Ativan) tablet 4 mg ( Oral See Alternative 12/13/232250) Or LORazepam (Ativan) injection 4 mg ( IntraVENous See Alternative 12/13/232250) ondansetron ODT (Zofran-ODT) disintegrating tablet 4 mg (has no administration in time range) PHENobarbital tablet 97.2 mg (has no administration in time range) sodium chloride 0.9 % bolus 1,000 mL (0 mL IntraVENous Stopped 12/13/23 1418) ondansetron (Zofran) injection 4 mg (4 mg IntraVENous Given 12/13/23 1347) LORazepam (Ativan) injection 2 mg (2 mg IntraVENous Given 12/13/23 1420) Final Impression 1. Alcoholic intoxication without complication (CMS/HCC) ([facility]) DISPOSITION Admit 12/13/2023 11:17:49 PM (Please note that portions of this note may have been completed with a voice recognition program. Efforts were made to edit the dictations but occasionally words are mis-transcribed.) Mattie Durbin DO Acute Care [facility] Mattie Durbin DO 12/13/23 [id number] * Roro Bryant RN - 12/13/2023 11:39 AM EST Vomiting seems to have resolved. documented in this [facility]11-04-2024 Emergency department Note* Janine Lino RN - 12/14/2023 6:44 AM EST Patient telemetry admission -- awaiting telemetry transport to the floor at this time [id number]* Janine Lino RN - 12/14/2023 6:22 AM EST Report called to RN on 3N at this time. Pt vitals stable and pt is ready to be put in for transport [place] [id number] Emergency department Note* Violeta Edmonds - 12/14/2023 5:13 AM EST Pt given water by Apolonia ARAUZ. [place] [id number] Emergency department Note* Timothy Saavedra MA - 12/14/2023 2:40 AM EST Violeta jordan in obtaining new VS. [place] [id number] History and physical note* Ant Carty MD - 12/13/2023 11:22 PM EST Attending History and Physical Admit Date: 12/13/2023 PCP: Tam Hughes DO CHIEF COMPLAINT: Alcohol intoxication, request for detox Reason for Admission: Same as above History Obtained From: patient, EMR HISTORY OF PRESENT ILLNESS: Roro is a 38 y.o. male with past medical history below who presents with chief complaint listed above. History includes alcohol use with history of withdrawal, prior pancreatitis, prior seizures, GERD, HTN. Patient reportedly brought in by family. Patient recently discharged 11/27 from [facility] for EtOH withdrawal, pancreatitis. At that time patient reported drinking 1 bottle or a fifth of vodka daily. On assessment patient is arousable, able to answer yes/no questions related to his current status however is unable to significantly contribute to HPI. Initial ED workup notes CO2 decreased at 20. Anion gap elevated at 23. BUN/creat at 5/0.60. Glucose of 116. Elevation of hepaticenzymes. WBCs elevated at 12.1. Respiratory panel negative for SARS/COVID. Ethanol level markedly elevated at 0.435. Lipase WNL at 78. UDS negative for tested illicit substances. Vital signs note hypertension-SBP in 150s-160s. Patient tachycardic with heart rate reaching up in the 120s. Will admit for further evaluation and management. Past Medical History: Past Medical History: Diagnosis Date Alcohol withdrawal syndrome without complication (HCC) 06/27/2022 Alcohol withdrawal with inpatient treatment, uncomplicated (HCC) 03/15/2022 GERD (gastroesophageal reflux disease) History of pancreatitis 01/07/2023 Hypertension Pancreatitis Seizures ([facility]) SVT (supraventricular tachycardia) (HCC) Tourette syndrome Past Surgical History: Past Surgical History: Procedure Laterality Date APPENDECTOMY Social History: Social History Socioeconomic History Marital status: Single Spouse name: Not on file Number of children: Not on file Years of education: Not on file Highest education level: Not on file Occupational History Not on file Tobacco Use Smoking status: Every Day Current packs/day: 1.00 Types: Cigarettes Smokeless tobacco: Never Vaping Use Vaping status: Never Used Substance and Sexual Activity Alcohol use: Yes Comment: 2/5 vodka daily Drug use: Not Currently Types: Cocaine, Methamphetamines, Oxycodone, Fentanyl, Heroin, Benzodiazepines Sexual activity: Not Currently Other Topics Concern Not on file Social History Narrative Not on file Social Drivers of Health Financial Resource Strain: High Risk (10/16/2023) Overall Financial Resource Strain (CARDIA) Difficulty of Paying Living Expenses: Very hard Food Insecurity: Food Insecurity Present (10/16/2023) Hunger Vital Sign Worried About Running Out of Food in the Last Year: Often true Ran Out of Food in the Last Year: Often true Transportation Needs: No Transportation Needs (10/16/2023) PRAPARE - Transportation Lack of Transportation (Medical): No Lack of Transportation (Non-Medical): No Physical Activity: Inactive (10/16/2023) Exercise Vital Sign Days of Exercise per Week: 0 days Minutes of Exercise per Session: 0 min Stress: Stress Concern Present (10/16/2023) [employer] - Occupational Stress Questionnaire Feeling of Stress : Very much Social Connections: Socially Isolated (10/16/2023) Social Connection and Isolation Panel [NHANES] Frequency of Communication with Friends and Family: Never Frequency of Social Gatherings with Friends and Family: Never Attends [employer] Services: Never Active Member of Clubs or Organizations: No Attends Club or Organization Meetings: Never Marital Status: Never Intimate Partner Violence: Not At Risk (11/18/2023) Humiliation, Afraid, Rape, and Kick questionnaire Fear of Current or Ex-Partner: No Emotionally Abused: No Physically Abused: No Sexually Abused: No Housing Stability: High Risk (10/16/2023) Housing Stability Vital Sign Unable to Pay for Housing in the Last Year: Yes Number of Times Moved in the Last Year: 2 Homeless in the Last Year: Yes Family History: Family History Problem Relation Name Age of Onset No Known Problems Mother No Known Problems Father Medications Prior to Admission: No current facility-administered medications on file prior to encounter. Current Outpatient Medications on File Prior to Encounter Medication Sig Dispense Refill cloNIDine (Catapres) 0.1 MG tablet Take 1 tablet (0.1 mg) by mouth 3 times daily. 90 tablet 0 hydrOXYzine HCl (Atarax) 50 MG tablet Take 1 tablet (50 mg) by mouth 2 times daily as needed for anxiety. 60 tablet 1 melatonin 5 MG tablet Take 1 tablet (5 mg) by mouth Nightly as needed (insomnia). 30 tablet 1 metoprolol succinate XL (Toprol-XL) 25 MG 24 hr tablet Take 2 tablets (50 mg) by mouth daily. Do not crush or chew. (Patient taking differently: Take 50 mg by mouth daily. Do not crush or chew.) 30 tablet 3 omeprazole (PriLOSEC) [address] capsule Take 1 capsule (20 mg) by mouth every morning (before breakfast). Do not crush or chew. 30 capsule 0 Allergies: No Known Allergies REVIEW OF SYSTEMS: As documented in HPI Vitals: BP (!) 164/116 Pulse (!) 122 Temp 36.4 C (97.5 F) (Temporal) Resp 18 Ht 5' 10 (1.778 m) Wt 252 lb (114 kg) SpO2 97% BMI 36.16 kg/m BMI Classification: Obese (BMI 30.0-39.9) Pulse Ox: SpO2 Av.3 % Min: 95 % Max: 100 % Supplemental O2: PHYSICAL EXAM: Physical Exam Constitutional: General: He is sleeping. Comments: Patient rouses to verbal stimuli, however is fatigued/intoxicated Eyes: General: Vision grossly intact. Gaze aligned appropriately. Extraocular Movements: Extraocular movements intact. Cardiovascular: Rate and Rhythm: Regular rhythm. Tachycardia present. Pulmonary: Breath sounds: Normal breath sounds. No wheezing, rhonchi or rales. Abdominal: Palpations: Abdomen is soft. Tenderness: There is generalized abdominal tenderness. Skin: General: Skin is warm and dry. Neurological: General: No focal deficit present. Cranial Nerves: Cranial nerves 2-12 are intact. Psychiatric: Behavior: Behavior is cooperative. DATA: CBC: Recent Labs 12/13/23 1159 WBC 12.1* RBC 4.65 HGB 14.3 HCT 43.7 MCV 94.0 RDW 14.4 PLT 423 BMP: Recent Labs 12/13/23 1242 NA 145 K 4.0 CL 103 CO2 20* BUN 5* CREATININE 0.60* GLUCOSE 116* CALCIUM 9.5 ANIONGAP 23* LIVER PROFILE: Recent Labs 12/13/23 1242 AST 186* ALT 141* BILITOT 0.9 ALKPHOS 171* PROT 8.3* PT/INR: No results for input(s): PROTIME, INR in the last 72 hours. CARDIAC ENZYMES: No results for input(s): TROPONINI in the last 72 hours. Procalcitonin: No results found for: PROCAL Urine Culture: No results found for this or any previous visit. COVID-19 PCR: No results for input(s): COVID19 in the last 72 hours. I reviewed: [x] laboratory results [x] radiographic results At the time of today's encounter. Pt was advised of the results. Data: (LOW: 2x CAT1 or independent historian MOD: 3x CAT1 or 1x CAT3 EXTENSIVE: 3x CAT1 and 1x CAT3) Assessment Discussed management with the ED provider and agree with hospitalization. Acute, acute on chronic, unstable/uncontrolled chronic problems/diagnoses: Alcohol intoxication with withdrawal -IVF hydration -Addiction medicine specialty consulted -Thiamine 100 mg -Folic acid 1 mg -P.O. phenobarbital -As needed Ativan as per CIWA protocol 2. Chronic pancreatitis -Patient reporting generalized abdominal pain -Review of ED discussion with addiction specialty notes recommendation to avoid IV Dilaudid. Will start with p.o. oxycodone as needed -Lipase WNL -Currently receiving IVF hydration 3. Tachycardia, history of SVT -Improving with IVF hydration, initial management -Metoprolol 50 mg Stable chronic problems affecting care, new non-acute diagnoses: Hypertension, Hx of SVT - Clonidine 0.1mg - Toprol 50mg -As needed IV labetalol 10 mg 2. GERD - Continue home PPI regimen Plan As a result of the above findings & factors, the following mgmt was pursued: - am labs, replace lytes prn - PT/OT/CM/SW - delirium precautions: increase activity and limit nighttime disturbances - DVT prophylaxis: enoxaparin and SCDs Complexity: Chronic illness with mild to moderate exacerbation, progression, or side effect of tx (MOD). Risk: Admission to hospital-level care was considered or occurred (HIGH). Advance Directive: Full code Anticipated Discharge - Date -12/15 - Location -TBD Total time spent (which include face to face and non face to face encounters) : 62 minutes. Extended Emergency Contact Information Primary Emergency Contact: Summer Valdivia Mobile Relation: Mother Ant Carty MD Division of Hospitalist Medicine Inpatient Medical Services/[facility] [employer] Work Phone: [phone] 150-663311-03-2024 History and physical note* Ant Carty MD - 12/13/2023 11:22 PM EST Attending History and Physical Admit Date: 12/13/2023 PCP: Tam Hughes DO CHIEF COMPLAINT: Alcohol intoxication, request for detox Reason for Admission: Same as above History Obtained From: patient, EMR HISTORY OF PRESENT ILLNESS: Roro is a 38 y.o. male with past medical history below who presents with chief complaint listed above. History includes alcohol use with history of withdrawal, prior pancreatitis, prior seizures, GERD, HTN. Patient reportedly brought in by family. Patient recently discharged 11/27 from [facility] for EtOH withdrawal, pancreatitis. At that time patient reported drinking 1 bottle or a fifth of vodka daily. On assessment patient is arousable, able to answer yes/no questions related to his current status however is unable to significantly contribute to HPI. Initial ED workup notes CO2 decreased at 20. Anion gap elevated at 23. BUN/creat at 5/0.60. Glucose of 116. Elevation of hepaticenzymes. WBCs elevated at 12.1. Respiratory panel negative for SARS/COVID. Ethanol level markedly elevated at 0.435. Lipase WNL at 78. UDS negative for tested illicit substances. Vital signs note hypertension-SBP in 150s-160s. Patient tachycardic with heart rate reaching up in the 120s. Will admit for further evaluation and management. Past Medical History: Past Medical History: Diagnosis Date Alcohol withdrawal syndrome without complication (HCC) 06/27/2022 Alcohol withdrawal with inpatient treatment, uncomplicated (HCC) 03/15/2022 GERD (gastroesophageal reflux disease) History of pancreatitis 01/07/2023 Hypertension Pancreatitis Seizures ([facility]) SVT (supraventricular tachycardia) (HCC) Tourette syndrome Past Surgical History: Past Surgical History: Procedure Laterality Date APPENDECTOMY Social History: Social History Socioeconomic History Marital status: Single Spouse name: Not on file Number of children: Not on file Years of education: Not on file Highest education level: Not on file Occupational History Not on file Tobacco Use Smoking status: Every Day Current packs/day: 1.00 Types: Cigarettes Smokeless tobacco: Never Vaping Use Vaping status: Never Used Substance and Sexual Activity Alcohol use: Yes Comment: 2/5 vodka daily Drug use: Not Currently Types: Cocaine, Methamphetamines, Oxycodone, Fentanyl, Heroin, Benzodiazepines Sexual activity: Not Currently Other Topics Concern Not on file Social History Narrative Not on file Social Drivers of Health Financial Resource Strain: High Risk (10/16/2023) Overall Financial Resource Strain (CARDIA) Difficulty of Paying Living Expenses: Very hard Food Insecurity: Food Insecurity Present (10/16/2023) Hunger Vital Sign Worried About Running Out of Food in the Last Year: Often true Ran Out of Food in the Last Year: Often true Transportation Needs: No Transportation Needs (10/16/2023) PRAPARE - Transportation Lack of Transportation (Medical): No Lack of Transportation (Non-Medical): No Physical Activity: Inactive (10/16/2023) Exercise Vital Sign Days of Exercise per Week: 0 days Minutes of Exercise per Session: 0 min Stress: Stress Concern Present (10/16/2023) [employer] - Occupational Stress Questionnaire Feeling of Stress : Very much Social Connections: Socially Isolated (10/16/2023) Social Connection and Isolation Panel [NHANES] Frequency of Communication with Friends and Family: Never Frequency of Social Gatherings with Friends and Family: Never Attends [employer]ish Services: Never Active Member of Clubs or Organizations: No Attends Club or Organization Meetings: Never Marital Status: Never Intimate Partner Violence: Not At Risk (11/18/2023) Humiliation, Afraid, Rape, and Kick questionnaire Fear of Current or Ex-Partner: No Emotionally Abused: No Physically Abused: No Sexually Abused: No Housing Stability: High Risk (10/16/2023) Housing Stability Vital Sign Unable to Pay for Housing in the Last Year: Yes Number of Times Moved in the Last Year: 2 Homeless in the Last Year: Yes Family History: Family History Problem Relation Name Age of Onset No Known Problems Mother No Known Problems Father Medications Prior to Admission: No current facility-administered medications on file prior to encounter. Current Outpatient Medications on File Prior to Encounter Medication Sig Dispense Refill cloNIDine (Catapres) 0.1 MG tablet Take 1 tablet (0.1 mg) by mouth 3 times daily. 90 tablet 0 hydrOXYzine HCl (Atarax) 50 MG tablet Take 1 tablet (50 mg) by mouth 2 times daily as needed for anxiety. 60 tablet 1 melatonin 5 MG tablet Take 1 tablet (5 mg) by mouth Nightly as needed (insomnia). 30 tablet 1 metoprolol succinate XL (Toprol-XL) 25 MG 24 hr tablet Take 2 tablets (50 mg) by mouth daily. Do not crush or chew. (Patient taking differently: Take 50 mg by mouth daily. Do not crush or chew.) 30 tablet 3 omeprazole (PriLOSEC) [address] capsule Take 1 capsule (20 mg) by mouth every morning (before breakfast). Do not crush or chew. 30 capsule 0 Allergies: No Known Allergies REVIEW OF SYSTEMS: As documented in HPI Vitals: BP (!) 164/116 Pulse (!) 122 Temp 36.4 C (97.5 F) (Temporal) Resp 18 Ht 5' 10 (1.778 m) Wt 252 lb (114 kg) SpO2 97% BMI 36.16 kg/m BMI Classification: Obese (BMI 30.0-39.9) Pulse Ox: SpO2 Av.3 % Min: 95 % Max: 100 % Supplemental O2: PHYSICAL EXAM: Physical Exam Constitutional: General: He is sleeping. Comments: Patient rouses to verbal stimuli, however is fatigued/intoxicated Eyes: General: Vision grossly intact. Gaze aligned appropriately. Extraocular Movements: Extraocular movements intact. Cardiovascular: Rate and Rhythm: Regular rhythm. Tachycardia present. Pulmonary: Breath sounds: Normal breath sounds. No wheezing, rhonchi or rales. Abdominal: Palpations: Abdomen is soft. Tenderness: There is generalized abdominal tenderness. Skin: General: Skin is warm and dry. Neurological: General: No focal deficit present. Cranial Nerves: Cranial nerves 2-12 are intact. Psychiatric: Behavior: Behavior is cooperative. DATA: CBC: Recent Labs 12/13/23 1159 WBC 12.1* RBC 4.65 HGB 14.3 HCT 43.7 MCV 94.0 RDW 14.4 PLT 423 BMP: Recent Labs 12/13/23 1242 NA 145 K 4.0 CL 103 CO2 20* BUN 5* CREATININE 0.60* GLUCOSE 116* CALCIUM 9.5 ANIONGAP 23* LIVER PROFILE: Recent Labs 12/13/23 1242 AST 186* ALT 141* BILITOT 0.9 ALKPHOS 171* PROT 8.3* PT/INR: No results for input(s): PROTIME, INR in the last 72 hours. CARDIAC ENZYMES: No results for input(s): TROPONINI in the last 72 hours. Procalcitonin: No results found for: PROCAL Urine Culture: No results found for this or any previous visit. COVID-19 PCR: No results for input(s): COVID19 in the last 72 hours. I reviewed: [x] laboratory results [x] radiographic results At the time of today's encounter. Pt was advised of the results. Data: (LOW: 2x CAT1 or independent historian MOD: 3x CAT1 or 1x CAT3 EXTENSIVE: 3x CAT1 and 1x CAT3) Assessment Discussed management with the ED provider and agree with hospitalization. Acute, acute on chronic, unstable/uncontrolled chronic problems/diagnoses: Alcohol intoxication with withdrawal -IVF hydration -Addiction medicine specialty consulted -Thiamine 100 mg -Folic acid 1 mg -P.O. phenobarbital -As needed Ativan as per CIWA protocol 2. Chronic pancreatitis -Patient reporting generalized abdominal pain -Review of ED discussion with addiction specialty notes recommendation to avoid IV Dilaudid. Will start with p.o. oxycodone as needed -Lipase WNL -Currently receiving IVF hydration 3. Tachycardia, history of SVT -Improving with IVF hydration, initial management -Metoprolol 50 mg Stable chronic problems affecting care, new non-acute diagnoses: Hypertension, Hx of SVT - Clonidine 0.1mg - Toprol 50mg -As needed IV labetalol 10 mg 2. GERD - Continue home PPI regimen Plan As a result of the above findings & factors, the following mgmt was pursued: - am labs, replace lytes prn - PT/OT/CM/SW - delirium precautions: increase activity and limit nighttime disturbances - DVT prophylaxis: enoxaparin and SCDs Complexity: Chronic illness with mild to moderate exacerbation, progression, or side effect of tx (MOD). Risk: Admission to hospital-level care was considered or occurred (HIGH). Advance Directive: Full code Anticipated Discharge - Date -12/15 - Location -TBD Total time spent (which include face to face and non face to face encounters) : 62 minutes. Extended Emergency Contact Information Primary Emergency Contact: Summer Valdivia Mobile Relation: Mother Ant Carty MD Division of Hospitalist Medicine Inpatient Medical Services/[facility] documented in this [place] [address]-03-2024 Emergency department Note* Janine Lino RN - 12/13/2023 11:18 PM EST Assumed care of pt for lunch coverage from JOSE GUADALUPE [place] [id number] Emergency department Note* Violeta Edmonds - 12/13/2023 11:05 PM EST at bedside. [id number] Emergency department Note* Savanna Jason, EMT - 12/13/2023 10:49 PM EST Clementnie RN at bedside. [id number] Emergency department Note* Violeta Edmonds - 12/13/2023 10:32 PM EST Pt stated to Savanna Jordan that he is having a panic attack. Apolonia ARAUZ at bedside. [id number] Emergency department Note* Violeta Edmonds - 12/13/2023 10:11 PM EST Pt given ada rand by Apolonia ARAUZ. [id number] Emergency department Note* Savanna Jason, MARIXA - 12/13/2023 6:18 PM EST DAYSI Parr at bedside taking vitals. [id number] Emergency department Note* Savanna Jason, EMT - 12/13/2023 6:07 PM EST Pt spilled beverage on the floor. Floor cleaned up by electrical mechanical technician Karolyn. [id number] Emergency department Note* Karolyn Mera - 12/13/2023 5:40 PM EST Pt at this time does not want to eat. [id number] Emergency department Note* Mary Houston - 12/13/2023 5:34 PM EST Refused Dinner Tray [id number] Emergency department Note* Mary Houston - 12/13/2023 4:49 PM EST JOSE GUADALUPE De La Fuente At Pt Bedside [id number] Emergency department Note* Mary Houston - 12/13/2023 4:04 PM EST NST Savanna At Pt Bedside Providing Pt With Another Urinal And Assisting Pt Back Into Bed, Cleaning UpUrine [id number] Emergency department Note* Mary Houston - 12/13/2023 3:43 PM EST JOSE GUADALUPE De La Fuente At Pt Bedside To Disconnect Fluids [id number] Emergency department Note* Mary Houston - 12/13/2023 3:38 PM EST Juliet Parr At Pt Bedside To Provide Pt With Urinal [id number] Emergency department Note* Karolyn Mera - 12/13/2023 2:20 PM EST Roro SHI at bedside [id number] Emergency department Note* Karolyn Mera - 12/13/2023 2:13 PM EST Pt calling out help, Tyree SHI to see what pt needs [id number] Emergency department Note* Karolyn Mera - 12/13/2023 1:47 PM EST Tyree SHI at bedside [id number] NoteNOTE: This result is for medical treatment only. Analysis performed using non-forensic procedures. [place] [id number] Emergency department Note* Roro Bryant RN - 12/13/2023 12:52 PM EST Straight cath complete tolerated well. [id number] Emergency department Note* Roro Bryant RN - 12/13/2023 12:47 PM EST Blood redrawn and sent to lab, tolerated well. [id number] Emergency department Note* Socorro Lozada - 12/13/2023 12:37 PM EST EKG at bedside. [id number] Emergency department Note* Roro Bryant RN - 12/13/2023 12:36 PM EST Patient did not want his mother in the room to sit with him. [id number] Emergency department Note* Mary Houston - 12/13/2023 12:16 PM EST JOSE GUADALUPE De La Fuente At Pt Bedside To Assist With Getting A Urine Sample Through A Straight Catheter [id number] Emergency department Note* Mary Houston - 12/13/2023 12:12 PM EST JOSE GUADALUPE De La Fuente At Pt Bedside [id number] Emergency department Note* Mary Houston - 12/13/2023 12:06 PM EST JOSE GUADALUPE De La Fuente At Pt Bedside To Check Vitals [id number] Emergency department Note* Mary Houston - 12/13/2023 11:55 AM EST Pt Changed Into Hospital Gowns And Socks. Skin Assessment Completed By JOSE GUADALUPE De La Fuente. Pt Wanded By Protective Services, 1 Bag Of Belongings Locked Into Cabinet. [id number] Emergency department Note* Mary Houston - 12/13/2023 11:49 AM EST JOSE GUADALUPE De La Fuente& Protective Services At Pt Bedside For Triage Process [address]Qosjut05-92-0527 Emergency department Note* Mary Houston - 12/13/2023 11:43 AM EST Pt To Room 53 [id number] Emergency department Note* Mary Houston - 12/13/2023 11:43 AM EST JOSE GUADALUPE De La Fuente & Protective Usama At Pt Bedside For IV Insertion [id number] Emergency department Triage note* Roro Bryant RN - 12/13/2023 11:39 AM EST Vomiting seems to have resolved. [id number] Physician Emergency department Note* Idris Danielson MD - 12/13/2023 11:39 AM EST Emergency Department Encounter [facility] EMERGENCY DEPT Patient: Roro Valdivia : 1985 Date of Evaluation: 12/13/2023 ED Supervising Physician: Idris Danielson MD I personally saw Roro Valdivia and made/approved the management plan and take responsibility for the patient management. This will serve as my Supervisory note and shared attestation. I did performa substantive portion of the visit including all aspects of the Medical Decision Making. HPI: In brief, Roro Valdivia is a 38 y.o. male PMH per EMR including prior pancreatitis, chart syndrome, seizures, alcohol withdrawal, cocaine abuse, presents with concern for abdominal pain. Patient reports for the last 3 days has had epigastric abdominal pain with associated nausea vomiting, has been drinking large quantities of alcohol, not been taking home medications, he denies fever chills, cough, chest pain, shortness of breath, he denies intention to harm self or others, suicidal homicidalideation, patient provides limited additional history. Physical Exam: General: no apparent distress or discomfort, nontoxic appearing, no active emesis HEENT: airway patent, mucous membranes moist Cardiovascular: regular rhythm, normal rate Respiratory: non-labored breathing, breath sounds clear, no wheeze crackles or rhonchi Gastrointestinal: soft, non-distended, minimal tenderness to palpation in epigastrium, abdomen otherwise nontender throughout, no rigidity guarding Extremities: no obvious deformity, non edematous Neurologic: Alert, slurred speech, follows commands, moves all extremities Psych: Calm, cooperative, no SI or HI Brief ED course/MDM: Patient presents as above, with epigastric abdominal pain nausea vomiting, discloses large quantityalcohol use, he is clinically intoxicated, afebrile hypertensive borderline tachycardic otherwise reassuring vitals, nontoxic, abdominal exam nonperitoneal, minimal tenderness to the epigastrium concerning for acute pancreatitis, gastritis, denies SI or HI, will obtain workup to evaluate including labs, EKG, will treat with Zofran, IV fluids, further management and disposition pending workup results and sober reevaluation. Labs obtained, interpreted by me, notable for no renal dysfunction, bicarb 20, glucose 116, transaminitis with elevated alk phos improved from prior evaluation, lipase 78, WBC 12.1, UA no UTI, ethanol 0.435 EKG obtained, per my interpretation, notable for sinus rhythm, LVH by voltage, no acute ischemic STsegment changes Will continue to monitor until clinical sobriety, will require sober reevaluation to determine further management and disposition including need for psychiatric consultation/admission All diagnostic, treatment, and disposition decisions were made by myself in conjunction with the resident. I also supervised erickson portions of any procedures performed by the Resident. For all further details of the patient's emergency department visit, please see their documentation. (Comment: Please note this report has been produced using speech recognition software and may contain errors related to that system including errors in grammar, punctuation, and spelling, as well as words and phrases that may be inappropriate. If there are any questions or concerns please feel freeto contact the dictating provider for clarification.) Idris Danielson MD [facility] Idris Danielson MD 12/13/23 1432 [place] Phone: [phone]) 370-193011-03-2024 Physician Emergency department Note* Mattie Durbin DO - 12/13/2023 11:39 AM EST Emergency Department Encounter Location: [facility] EMERGENCY DEPT Patient: Roro Valdivia : 1985 Date of evaluation: 12/13/2023 ED Provider: Mattie Durbin DO Time received sign-out: Dr Danielson Roro Valdivia was checked out to me by 1500. Please see his/her initial documentation for detailsof the patient's initial ED presentation, physical exam and completed studies. In brief, Roro Valdivia is a 38 y.o. adult that presented to the emergency department with alcohol intoxication and endorsing abdominal pain. He was poor historian due to intoxication and had an ethanol level of 435. He was signed out to me pending reevaluation when sober. I have reviewed and interpreted all of the currently available lab results and diagnostics from this visit: Results for orders placed or performed during the hospital encounter of 12/13/23 SARS-CoV-2 Antigen Collection Time: 12/13/23 11:59 AM Specimen: Nose; Swab Result Value Ref Range SARS-CoV-2 Antigen Negative Negative CBC auto differential Collection Time: 12/13/23 11:59 AM Result Value Ref Range Auto WBC 12.1 (H) 3.6 - 10.7 10*3/uL RBC 4.65 4.40 - 5.90 10*6/uL Hemoglobin 14.3 13.0 - 18.0 g/dL Hematocrit 43.7 40.0 - 52.0 % MCV 94.0 77.0 - 99.0 fL MCH 30.8 26.0 - 34.0 pg MCHC 32.7 30.5 - 36.0 % RDW 14.4 11.5 - 15.0 % Platelets 423 140 - 440 10*3/uL MPV 10.2 9.0 - 12.7 fL Man Differential Collection Time: 12/13/23 11:59 AM Result Value Ref Range Adjusted WBC 12.1 (H) 3.6 - 10.7 10*3/uL Neutrophils % 29 (L) 38 - 82 % Lymphocytes % 67 (H) 15 - 45 % Monocytes % 3 (L) 5 - 13 % Basophils % 1 0 - 2 % Absolute Neutrophil Count 3.5 1.8 - 7.0 10*3/uL Lymphocytes Absolute 8.1 (H) 1.0 - 4.3 10*3/uL Monocytes Absolute 0.4 0.0 - 0.9 10*3/uL Basophils Absolute 0.1 0.0 - 0.2 10*3/uL RBC Morphology Normal WBC Morphology Normal PLT Morphology Normal Total Counted 100 Neutrophils Manual 29 Lymphocytes Manual 67 Monocytes Manual 3 Basophils Manual 1 Differential Method Manual differential performed Drug screen panel, emergency Collection Time: 12/13/23 12:00 PM Result Value Ref Range AMPHETAMINE SCREEN Negative BARBITURATES SCREEN Negative BENZODIAZEPINE SCREEN Negative COCAINE METAB. SCREEN Negative METHADONE SCREEN Negative OPIATES SCREEN Negative OXYCODONE SCREEN Negative PHENCYCLIDINE SCREEN Negative Urinalysis with reflex microscopic Collection Time: 12/13/23 12:00 PM Result Value Ref Range Color, Urine Light Yellow Lt. Yellow Clarity, Urine Clear Clear pH, Urine 6.5 5.0 - 8.0 pH Leukocytes, Urine Negative Negative Teofilo/uL Nitrite, Urine Negative Negative Protein, Urine Negative Negative mg/dL Glucose, Urine Normal Normal (<70) mg/dL Bilirubin, Urine Negative Negative mg/dL Ketones, Urine Negative Negative mg/dL Urobilinogen, Urine Normal Normal (0-1) mg/dL Blood, Urine 0.03 (A) Negative mg/dL RBC, Urine 0-2 0 - 2 /HPF WBC, Urine 0-2 0 - 5 /HPF Squamous Epithelial, Urine Negative 3 - 5 /HPF Bacteria, Urine Few (A) Negative /HPF SPECIFIC GRAVITY OF URINE (NUMERIC) 1.004 (L) 1.005 - 1.030 Ethanol Collection Time: 12/13/23 12:42 PM Result Value Ref Range ETHANOL IN SER/PLAS 0.435 (HH) 0.000 - 0.010 g/dL Comprehensive metabolic panel Collection Time: 12/13/23 12:42 PM Result Value Ref Range SODIUM 145 135 - 145 mmol/L POTASSIUM 4.0 3.5 - 5.1 mmol/L CHLORIDE 103 98 - 107 mmol/L CARBON DIOXIDE 20 (L) 22 - 30 mmol/L ANION GAP 23 (H) 3 - 13 mmol/L UREA NITROGEN 5 (L) 9 - 20 mg/dL CREATININE 0.60 (L) 0.66 - 1.25 mg/dL GLUCOSE 116 (H) 70 - 100 mg/dL CALCIUM 9.5 8.4 - 10.4 mg/dL AST (SGOT) 186 (H) 15 - 46 U/L ALT 141 (H) 0 - 49 U/L ALKALINE PHOSPHATASE 171 (H) 38 - 126 U/L ALBUMIN 4.9 3.5 - 5.0 g/dL BILIRUBIN, TOTAL 0.9 0.2 - 1.3 mg/dL TOTAL PROTEIN 8.3 (H) 6.3 - 8.2 g/dL eGFR >90.0 >60.0 mL/min/1.73m*2 Lipase Collection Time: 12/13/23 12:42 PM Result Value Ref Range LIPASE 78 23 - 300 U/L ECG 12 lead Collection Time: 12/13/23 12:42 PM Result Value Ref Range Heart Rate 91 bpm QRSD Interval 97 ms QT Interval 373 ms QTC Interval 459 ms P [place] 53 degrees QRS [place] -11 degrees T Wave [place] -5 degrees ME Interval 148 ms No orders to display Final ED Course and MDM: Roro Paige Migdaliakacey is a 38 y.o. whose care was signed out to me by the outgoing provider. In brief, patient presenting to the ED with alcohol intoxication and endorsing abdominal pain. Signed out to me pending reevaluation when sober. To my reevaluation patient does appear more clinically sober however is becoming hypertensive and tachycardic with CIWA of 19. Labs show an anion gap acidosis that is likely due to his ethanol level.We will repeat a BMP and he was started on phenobarbital. Patient requesting admission for detox however has been previously admitted for detox and given that he typically requires high doses of Ativan, phenobarbital and Dilaudid we will admit to medicine with an addiction consult. Medications thiamine (Vitamin B1) tablet 100 mg (100 mg Oral Given 12/13/23 1420) folic acid (Folvite) tablet 1 mg (1 mg Oral Given 12/13/23 142) LORazepam (Ativan) tablet 1 mg ( Oral See Alternative 12/13/232250) Or LORazepam (Ativan) injection 1 mg ( IntraVENous See Alternative 12/13/232250) Or LORazepam (Ativan) tablet 2 mg ( Oral See Alternative 12/13/232250) Or LORazepam (Ativan) injection 2 mg ( IntraVENous See Alternative 12/13/232250) Or LORazepam (Ativan) tablet 3 mg ( Oral See Alternative 12/13/232250) Or LORazepam (Ativan) injection 3 mg (3 mg IntraVENous Given 12/13/232250) Or LORazepam (Ativan) tablet 4 mg ( Oral See Alternative 12/13/232250) Or LORazepam (Ativan) injection 4 mg ( IntraVENous See Alternative 12/13/232250) ondansetron ODT (Zofran-ODT) disintegrating tablet 4 mg (has no administration in time range) PHENobarbital tablet 97.2 mg (has no administration in time range) sodium chloride 0.9 % bolus 1,000 mL (0 mL IntraVENous Stopped 12/13/23 1418) ondansetron (Zofran) injection 4 mg (4 mg IntraVENous Given 12/13/23 1347) LORazepam (Ativan) injection 2 mg (2 mg IntraVENous Given 12/13/23 1420) Final Impression 1. Alcoholic intoxication without complication (CMS/HCC) (HCC) DISPOSITION Admit 12/13/2023 11:17:49 PM (Please note that portions of this note may have been completed with a voice recognition program. Efforts were made to edit the dictations but occasionally words are mis-transcribed.) Mattie Durbin DO [employer] Mattie Durbin DO 12/13/23 7739 [id number] Telephone encounter Note* Telephone Encounter - Seema Sumner LPN - 12/01/2023 9:23 AM EDT Unable to contact patient X2 [id number] Miscellaneous Notes* Telephone Encounter - Seema Sumner LPN - 12/01/2023 9:23 AM EDT Unable to contact patient X2 * Telephone Encounter - Seema Sumner LPN - 11/30/2023 9:41 AM EDT S: Patient admitted to: [facility] 11/17/23 B: Discharged on : 11/28/23 A: Hospital follow up call initiated to discuss any medication changes, follow up appointments and discharge instructions: Acute pancreatitis without infection or necrosis R: No contact x 1 at : [phone] documented in this encounterSDayton [facility] [id number] Telephone encounter Note* Telephone Encounter - Seema Sumner LPN - 11/30/2023 9:41 AM EDT S: Patient admitted to: [facility] 11/17/23 B: Discharged on : 11/28/23 A: Hospital follow up call initiated to discuss any medication changes, follow up appointments and discharge instructions: Acute pancreatitis without infection or necrosis R: No contact x 1 at : [phone] [id number] Hospital Discharge instructions* Discharge Instr - Activity* Cory Tidwell RN - 11/28/2023 3:25 PM EDT As tolerated or instructed by physician * Discharge Instr - Diet* Cory Tidwell RN - 11/28/2023 3:26 PM EDT Eat healthy foods, avoid processed foods high in sodium and added sugars * Attachments The following attachments cannot be sent through Care Everywhere. * Chronic Pancreatitis Discharge Instructions (South Korean) documented in this [facility]10-19-2024 Hospital course Narrative* Akbar Prajapati MD - 11/28/2023 1:30 PM EDT Discharge Summary Roro Valdivia : 1985 ADMIT DATE: 11/17/2023 DISCHARGE DATE: 11/28/2023 PRIMARY CARE PHYSICIAN: Tam Hughes VISIT STATUS: Admission CODE STATUS: Full Code DISCHARGE DIAGNOSES: Principal Problem: Acute pancreatitis without infection or necrosis Active Problems: Moderate malnutrition (CMS/HCC) ([facility]) HOSPITAL COURSE: Roro Valdivia is a 38 y.o. male who presents to the emergency department with chief complaint of epigastric abdominal pain and feeling as if he is in alcohol withdrawal. He states that his abdominal pain feels exactly like his pancreatitis flares. He states that he drinks 1/5 of vodka per day andlast drank roughly 3 hours ago and states that he feels like he is in alcohol withdrawal. He deniesany hallucinations. He is requesting assistance with alcohol detox. He endorses accompanying vomiting. The following is a summary of his diagnosis management during his stay here at [facility]: Acute, acute on chronic, unstable/uncontrolled chronic problems/diagnoses: # Acute recurrent alcoholic pancreatitis - improving with IVF and supportive tx. he still has some soreness. Will send him home with only 10 tablets of as needed Roxicodone. I did review his PDMP andhis state indicator is 0. He also has received this in the past as well and did fine. I reiterated that he cannot use this and use alcohol as well as both are a dangerous combination and can kill him. He states he understands and he states he will not do so. # Severe alcohol use disorder - ADM consulted, last drink 11/16, 11/17/23- 2359 - positive for alcohol 0.027 on admission. He was told NOT to drink anymore and he acknowledges. He is planning to check into [facility] but states he needs to go home to pack before doing so. # Elevated LFTs with hyperbilirubinemia - LFTs continue to worsen. Surgery saw and has signed off. States CT with questionable gallbladder sludge, but US normal. They feel that the elevated LFTs is related to acute on chronic liver dysfunction from alcohol use and abuse. They recommended to continue supportive care and states No surgical intervention planned. GI followed up and states acute hepatitis panel negative. Right upper quadrant ultrasound shows diffuse hepatic steatosis no gallstones. No gallbladder wall thickening. No pericholecystic fluid. Biliary ducts unremarkable. CBD 4 mm. Theyrecommended to Monitor LFTs. Held cymbalta, trazodone and Sinequan initially. LFTs starting to downtrend now. Stopped Cymbalta and Sinequan on 11/26 per patient request and resumed his Effexor that he was on outpatient instead per patient request as he does not like Cymbalta. Also resumed PRN Trazodone. This morning LFTs started to climb a little bit. I repeated again this afternoon and it continues to go up again. Was planning to hold all his psychiatric meds again and consult psychiatry for recommendations however patient says he already has a psychiatrist Dr. Live who he follows with every Thursday and he already has a follow-up this coming Thursday. He does not want to stay anotherday and wants to be discharged. He has not been on his Risperdal here he says he takes it for Tics.He said he will be fine off of it but does not want to stay. As for the Effexor, he states he does have a history of depression but mostly anxiety is the reason he is on meds. He says his depression is not severe and he has never had any suicide attempts or ideations. He states his anxiety is fine right now and he will follow-up with Dr. Live on Thursday. States he will be fine off all these meds but does not want to see psychiatry here. Meanwhile he says his primary care is Dr. Tam Hughes. He says he can get in to see him either Thursday or Thursday and will talk to him to repeat his liver enzymes that day. Meanwhile I reiterated that he cannot drink any alcohol especially with his currentliver enzymes as well. He states he understands and he plans to go to [facility] discharge but will need to go home to pack first. He also further ask if there are anything else he needs to avoidas far as for the liver. I told him to avoid Tylenol as well as any illicit drug use. Of note, he is not on any cholesterol medication. Otherwise he said he feels great and he has no complaints and re fuses to stay any further and wishes to go home. # Small bilateral pulmonary effusions - Echo was normal. # Bibasilar atelectasis - likely from pleural effusion along with not taking deep breaths due to pain from pancreatitis. Continue incentive spirometer # Uncontrolled Hypertension - continue on Clonidine and metoprolol. PRN Hydralazine for SBP >160. Amlodipine was added and Metroprolol was increased to 100 mg PO daily. His blood pressure is controlled now but likely will resume his prior home blood pressure medications on discharge as his bloodpressure was likely uncontrolled due to stress, pancreatitis with pain etc. # Constipation -resolved. # Hypertriglyceridemia # Alcohol ketosis # Anion gap metabolic acidosis - resolved # Right arm superficial cephalic vein thrombosis - no need for OAC. Follow up with PCP # Insomnia - was started on trazodone and Sinequan per addiction med but currently held due to rising LFTs. Patient states the medication is really not helping him anyways and he does not mind stopping it. He can resume his prior melatonin on discharge and follow-up with his psychiatrist Stable chronic problems affecting care, new non-acute diagnoses: # Hx of MDD - He also mentioned that he was supposed to switch to Cymbalta outpatient but never didyet. He was actually started on it here because it was on his home medication but he never really was on it yet outpatient. He states he wants to go back on his Effexor as he does not like the Cymbalta. Effexor and Trazodone was on hold due to elevated LFTs but resumed on 11/26. Now is discontinuedagain due to his elevated liver enzymes. Patient wishes to stay off of all this and follow-up with his psychiatrist Dr. Live next Thursday. He does not want to see psychiatry here and does not want to stay either and wishes to be discharged. # Hx of Palpitations # Hx Benzodiazepine withdrawal with complication >1yr ago # Hx opioid withdrawal -denies current use pending screen # HX of Polysubstance use disorder including cocaine # GERD # Hx of SVT # Chronic HTN Physical exam: Cardiovascular: S1/S2 heard, RRR Respiratory: Clear to auscultation bilaterally Abdomen: Soft, with some very minimal discomfort to palp of mid abdomen, no epigastric or RUQ pain today, there is no grimacing or guarding, he looks completely comfortable. Abdomen is non-distended bowel sounds positive Musculoskeletal: No obvious deformities seen Skin: No visible rashes or lesions. SIGNIFICANT DIAGNOSTIC STUDIES: As above CONSULTANTS: GI Surgery Addiction med RECOMMENDED NEXT STEPS: DISCHARGE MEDICATIONS: Medication List START taking these medications oxyCODONE 5 MG immediate release tablet Commonly known as: Roxicodone Take 1 tablet (5 mg) by mouth every 6 hours as needed for severe pain (7-10) for up to 3 days. CONTINUE taking these medications cloNIDine 0.1 MG tablet Commonly known as: Catapres Take 1 tablet (0.1 mg) by mouth 3 times daily. hydrOXYzine HCl 50 MG tablet Commonly known as: Atarax Take 1 tablet (50 mg) by mouth 2 times daily as needed for anxiety. melatonin 5 MG tablet Take 1 tablet (5 mg) by mouth Nightly as needed (insomnia). metoprolol succinate XL 25 MG 24 hr tablet Commonly known as: Toprol-XL Take 2 tablets (50 mg) by mouth daily. Do not crush or chew. omeprazole [address] capsule Commonly known as: PriLOSEC Take 1 capsule (20 mg) by mouth every morning (before breakfast). Do not crush or chew. STOP taking these medications DULoxetine [address] capsule Commonly known as: Cymbalta risperiDONE 1 MG tablet Commonly known as: RisperDAL Where to Get Your Medications These medications were sent to [facility] - [place], [place] - [address] [facility], [place] [address] oxyCODONE 5 MG immediate release tablet DIET: Adult diet Regular; GI [place] (GERD/Peptic Ulcer) ACTIVITY: No restriction. COMPLEXITY OF FOLLOW UP: [] Moderate Complexity: follow up within 7-14 calendar days (16828) [] Severe Complexity: follow up within 7 calendar days (85678) FOLLOW UP TESTING, PENDING RESULTS OR REFERRALS AT TRANSITIONAL CARE VISIT: [] Yes [] No PENDING STUDIES: DISPOSITION: Home FACILITY/HOME CARE AGENCY NAME: Follow up with No follow-up provider specified. Follow up with PCP and psychiatry as well as addiction med INSTRUCTIONS TO MA/SW: Please call patient on day after discharge (must document patient contacted within 2 business days of discharge). FOLLOW UP QUESTIONS FOR MA/SW: 1. Did you get medications filled and taking them as instructed from discharge? 2. Are you following your discharge instructions from your hospital stay? 3. Please confirm patient is scheduled for a follow up appointment within the above time frame. DISCHARGE TIME: > 30 minutes SIGNED: Akbar Prajapati MD 11/28/2023, 1:30 PM documented in this [facility]10-19-2024 Miscellaneous Notes* Care Plan - Susan Zurita RN - 11/28/2023 2:32 AM EDT Problem: Pain - Adult Goal: Verbalizes/displays adequate comfort level or baseline comfort level Outcome: Progressing Flowsheets (Taken 11/28/2023 0231) Verbalizes/displays adequate comfort level or baseline comfort level: Encourage patient to monitor pain and request assistance Assess pain using appropriate pain scale Administer analgesics based on type and severity of pain and evaluate response Implement non-pharmacological measures as appropriate and evaluate response Problem: Chronic Conditions and Co-morbidities Goal: Patient's chronic conditions and co-morbidity symptoms are monitored and maintained or improved Outcome: Progressing Flowsheets (Taken 11/28/2023 0231) Care Plan - Patient's Chronic Conditions and Co-Morbidity Symptoms are Monitored and Maintained or Improved: Monitor and assess patient's chronic conditions and comorbid symptoms for stability, deterioration, or improvement Problem: Knowledge Deficit Goal: Patient/family/caregiver demonstrates understanding of disease process, treatment plan, medications, and discharge instructions Outcome: Progressing Flowsheets (Taken 11/28/2023230) Patient/family/caregiver demonstrates understanding of disease process, treatment plan, medications, and discharge instructions: Provide teaching at level of understanding The patient is Moderately Stable - Low risk of patient condition declining or worsening The patient's goals for the shift include no pain/rest The clinical goals for the shift include decreased pain/decreased withdrawal s/s, comfort/safety. Over the shift, the patient did not make progress toward the following goals. Barriers to progression include n/a. Recommendations to address these barriers include n/a. * Care Coordination - Melissa Garcia RN - 11/27/2023 12:53 PM EDT Care Management Progress Note Pt remains on 2E. No surgical intervention at this time. Receiving IV fluids. Now of GI bland diet.Continues to use Oxycodone and Dilaudid for pain. Dilaudid to be weaned down. Discharge plan remains [facility] once medically ready. housing assistant property manager to follow and assist as needed. Length of Stay (Days): 9 GMLOS: No GMLOS Documented * Care Coordination - Melissa Garcia RN - 11/25/2023 1:56 PM EDT Care Management Progress Note Pt remains on 2E. GI and addiction med signed off. General Surg following, stating no surgical intervention at this time. On full liquid diet. Dilaudid and Oxycodone for pain. Discharge plan remains [facility] when medically ready. housing assistant property manager to follow and assist as needed. Length of Stay (Days): 7 GMLOS: No GMLOS Documented * Care Plan - Serena Durham RN - 11/25/2023 3:42 AM EDT Problem: Pain - Adult Goal: Verbalizes/displays adequate comfort level or baseline comfort level Outcome: Progressing Problem: Safety - Adult Goal: Free from fall injury Outcome: Progressing Problem: Discharge Planning Goal: Discharge to home or other facility with appropriate resources Outcome: Progressing Problem: Chronic Conditions and Co-morbidities Goal: Patient's chronic conditions and co-morbidity symptoms are monitored and maintained or improved Outcome: Progressing Problem: Knowledge Deficit Goal: Patient/family/caregiver demonstrates understanding of disease process, treatment plan, medications, and discharge instructions Outcome: Progressing Problem: Potential for Compromised Skin Integrity Goal: Skin Integrity is Maintained or Improved Outcome: Progressing Goal: Nutritional status is improving Outcome: Progressing Problem: Urinary Incontinence Goal: Perineal skin integrity is maintained or improved Outcome: Progressing * Care Plan - Mary Collazo RN - 11/24/2023 1:09 PM EDT The patient is Moderately Stable - Low risk of patient condition declining or worsening The patient's goals for the shift include no pain/rest The clinical goals for the shift include decreased pain/decreased withdrawal s/s, comfort/safety. Over the shift, the patient did make progress toward the following goals. * Care Coordination - Leonie Mckay RN - 11/24/2023 12:31 PM EDT Care Managment Initial Assessment Date: 11/24/2023 Patient Name: Roro Valdivia : 1985 Patient Information Source of Information: Patient Cognition/Language: WFL - Within Functional Limits Permission given to speak with patient claims representative/caregiver as indicated: No (provides no emergency contact) Confirmation of Payer with patient/family: Payer Name: [employer] [place]: No Confirmation of Primary Care Physician: Confirmed PCP Name: Dr. Tam Hughes Seen in last 2 years?: Yes Primary Caregiver: Self If assistance needed, confirmed caregiver ready, willing and able to care for patient at discharge: Confirmed with: Living Arrangements Current Residence: Apartment Number of Floors 1 (4 story apartment building, one story living) Number of Entry Steps: (multiple steps, 3 story apartment building) Bed/Bath Levels: Facility: Facility Name: Plan to Return: Lives with: Parent Support Systems: Family members Activities of Daily Living Ambulation: Independent Bathing/Dressing: Independent Elimination/Continence/Toileting: Independent Feeding: Independent Who Assists with Activities of Daily Living: Instrumental Activities of Daily Living Prescription Coverage: Yes Pharmacy Used: [place] on [facility] Medication Management: Independent Transportation/Shopping: Independent Transportation Mode: Car Needs Assistance with Transportation at Discharge: No Meal Preparation: Independent Laundry/Cleaning: Independent Finances/Bill Paying: Independent Communication: Independent Types of Care Services/Equipment Utilized Care Services: Dialysis Type: NA Durable Medical Equipment: DME Provider: no DME Patient's Goal/Discharge Plan Patient expects to be discharged to: Home Discharge Planning Actions: Continue to follow Patient's Choice Rights and [employer] and Collaborative Relationships Disclosed as Indicated for Post-Acute Care: NA Interdisciplinary Team Engagement: Social Work Referral for: Additional Information: Chart reviewed. Patient admitted to [facility] and now on 2 east for treatment of Pancreatitis and ETOH abuse. ADM consulted. Met with patient today. Lives with his mother. Independent with adls and manages own medications. Confirmed payor. Sister provides transportation as needed. He reports he plans to admit himself to [facility] in [place] as he reports he has been there before. DC plan: anticipate [facility] in [place], [place] Leonie Mckay RN * Care Coordination - VANITA Isidro - 11/24/2023 11:28 AM EDT Per Addiction Medicine Physician, Dr. Dov Vanegas, patient indicated that he has been at [facility] in [place] a while back and would be interested in going there again. Spoke with Marcia in admissions who states they do have a bed and are requesting clinicals be faxed to [phone]. Will continue to follow for rehab placement needs. * Care Plan - Racquel Salinas RN - 11/24/2023 4:30 AM EDT The patient is Moderately Unstable - Medium risk of patient condition declining or worsening The patient's goals for the shift include no pain/rest The clinical goals for the shift include decreased pain/decreased withdrawal s/s, comfort/safety. Problem: Pain - Adult Goal: Verbalizes/displays adequate comfort level or baseline comfort level Outcome: Progressing Problem: Safety - Adult Goal: Free from fall injury Outcome: Progressing Problem: Discharge Planning Goal: Discharge to home or other facility with appropriate resources Outcome: Progressing Problem: Chronic Conditions and Co-morbidities Goal: Patient's chronic conditions and co-morbidity symptoms are monitored and maintained or improved Outcome: Progressing Problem: Knowledge Deficit Goal: Patient/family/caregiver demonstrates understanding of disease process, treatment plan, medications, and discharge instructions Outcome: Progressing Problem: Potential for Compromised Skin Integrity Goal: Skin Integrity is Maintained or Improved Outcome: Progressing Goal: Nutritional status is improving Outcome: Progressing Problem: Urinary Incontinence Goal: Perineal skin integrity is maintained or improved Outcome: Progressing * Care Plan - Racquel Salinas RN - 11/23/2023 12:57 AM EDT The patient is Moderately Unstable - Medium risk of patient condition declining or worsening The patient's goals for the shift include no pain/rest The clinical goals for the shift include decreased pain/decreased withdrawal s/s, comfort/safety. Problem: Pain - Adult Goal: Verbalizes/displays adequate comfort level or baseline comfort level Outcome: Progressing Problem: Safety - Adult Goal: Free from fall injury Outcome: Progressing Problem: Discharge Planning Goal: Discharge to home or other facility with appropriate resources Outcome: Progressing Problem: Chronic Conditions and Co-morbidities Goal: Patient's chronic conditions and co-morbidity symptoms are monitored and maintained or improved Outcome: Progressing Problem: Knowledge Deficit Goal: Patient/family/caregiver demonstrates understanding of disease process, treatment plan, medications, and discharge instructions Outcome: Progressing Problem: Potential for Compromised Skin Integrity Goal: Skin Integrity is Maintained or Improved Outcome: Progressing Goal: Nutritional status is improving Outcome: Progressing Problem: Urinary Incontinence Goal: Perineal skin integrity is maintained or improved Outcome: Progressing * Care Plan - Racquel Salinas RN - 11/22/2023 3:00 AM EDT The patient is Moderately Unstable - Medium risk of patient condition declining or worsening The patient's goals for the shift include no pain/rest The clinical goals for the shift include decreased pain/decreased withdrawal s/s, comfort/safety. Problem: Pain - Adult Goal: Verbalizes/displays adequate comfort level or baseline comfort level Outcome: Progressing Problem: Safety - Adult Goal: Free from fall injury Outcome: Progressing Problem: Discharge Planning Goal: Discharge to home or other facility with appropriate resources Outcome: Progressing Problem: Chronic Conditions and Co-morbidities Goal: Patient's chronic conditions and co-morbidity symptoms are monitored and maintained or improved Outcome: Progressing * Care Plan - Racquel Salinas RN - 11/21/2023 4:13 AM EDT The patient is Moderately Unstable - Medium risk of patient condition declining or worsening The patient's goals for the shift include no pain/rest The clinical goals for the shift include decreased pain/decreased withdrawal s/s, comfort/safety. Problem: Pain - Adult Goal: Verbalizes/displays adequate comfort level or baseline comfort level Outcome: Progressing Problem: Safety - Adult Goal: Free from fall injury Outcome: Progressing Problem: Discharge Planning Goal: Discharge to home or other facility with appropriate resources Outcome: Progressing Problem: Chronic Conditions and Co-morbidities Goal: Patient's chronic conditions and co-morbidity symptoms are monitored and maintained or improved Outcome: Progressing * Care Coordination - Leonie Mckay RN - 11/20/2023 12:30 PM EDT Care Management Progress Note Reviewed chart. Patient admitted to [facility] for treatment of Pancreatitis and ETOH abuse. Noted ADM andGI is folloiwng. On CIWA. Initial assessment deferred at this time. Will continue to follow for needs. Anticipate home when medically ready. DC plan: Home, anticipate no home going needs. Length of Stay (Days): 2 GMLOS: No GMLOS Documented * Care Plan - Judith Hui RN - 11/19/2023 4:16 PM EDT Problem: Pain - Adult Goal: Verbalizes/displays adequate comfort level or baseline comfort level Outcome: Progressing Problem: Safety - Adult Goal: Free from fall injury Outcome: Progressing Problem: Discharge Planning Goal: Discharge to home or other facility with appropriate resources Outcome: Progressing Problem: Chronic Conditions and Co-morbidities Goal: Patient's chronic conditions and co-morbidity symptoms are monitored and maintained or improved Outcome: Progressing The patient is Moderately Stable - Low risk of patient condition declining or worsening The patient's goals for the shift include no pain/rest The clinical goals for the shift include decreased pain/decreased withdrawal s/s, comfort/safety. Over the shift, the patient did not make progress toward the following goals. Barriers to progression include NA. Recommendations to address these barriers include NA. * Care Plan - Judith Hui RN - 11/18/2023 3:35 PM EDT Problem: Pain - Adult Goal: Verbalizes/displays adequate comfort level or baseline comfort level Outcome: Progressing Problem: Safety - Adult Goal: Free from fall injury Outcome: Progressing Problem: Discharge Planning Goal: Discharge to home or other facility with appropriate resources Outcome: Progressing Problem: Chronic Conditions and Co-morbidities Goal: Patient's chronic conditions and co-morbidity symptoms are monitored and maintained or improved Outcome: Progressing The patient is Moderately Stable - Low risk of patient condition declining or worsening The patient's goals for the shift include no pain/rest The clinical goals for the shift include decreased pain/decreased withdrawal s/s, comfort/safety. Over the shift, the patient did not make progress toward the following goals. Barriers to progression include NA. Recommendations to address these barriers include NA. documented in this [facility]10-18-2024 History of Present illness Narrative* Britney Lau RD - 11/27/2023 3:15 PM EDT Nutrition Assessment Type and Reason for Visit: Reassess Nutrition Recommendations/Plan: Continue Regular Diet with Ensure High Protein TID (+160 kcal, 16 g protein, 240 mL/serving), +thiamine and folic acid supplements Encourage patient to participate in room service and order well balanced meals Please record % meals and oral nutrition supplements consumed in flowsheet for most accurate nutrient intake assessment. Obtain standing weight for updated accurate anthropometric data RDN to continue to monitor weekly: fluid accumulation, weight, skin integrity, trends in lab values, tolerance of PO, clinical status, discharge planning. Malnutrition Assessment: Malnutrition Status: Moderate malnutrition (inability to tolerate po vs refusal to try?) Context: Acute Illness Findings of the 6 clinical characteristics of malnutrition: Energy Intake: 50% or less of estimated energy requirements for 5 or more days Weight Loss: Unable to assess Body Fat Loss: Mild body fat loss Orbital Muscle Mass Loss: Mild muscle mass loss Temples (temporalis), Clavicles (pectoralis & deltoids), Thigh (quadraceps) Fluid Accumulation: No significant fluid accumulation Control Clerk Strength: Not Performed Nutrition Assessment: 38 year old man who remains admitted to [facility] with acute alcoholic pancreatitis. No surgical interventions planned, Right upper quadrant ultrasound shows diffuse hepatic steatosis no gallstones. No gallbladder wall thickening. No pericholecystic fluid. Biliary ducts unremarkable. GI has signed off care. Continues on dilaudid and oxy for pain control, planning to wean down dilaudid. Sitting up to chair at time of assessment, reports eating eggs, and pancakes (598 kcal and 12 g protein) for breakfast. Did not eat lunch citing what I ate this morning will fill me up for the day . +1 Ensure High Protein today. Per Reviewed meal selections since diet advancement on 11/24--> 745 kcal and 28 g protein consumed on 11/24. Only ate a southwest bowl on 11/25 (+408 kcal, 32 g protein). Taking two tothree Ensure High Protein ONS daily. Recommend to obtain actual standing weight for most accurate anthropometric data- may meet criteria for severe malnutrition based on < 50% estimated needs for > 5 days. Estimated Daily Nutrient Needs: Energy Requirements Based On: Kcal/kg Weight Used for Energy Requirements: [place] Weight for Energy Calculation (kg): 84 kg Total Energy Requirements (kcals/day): 1368-7865 (25-30 kcal/kg IBW) Weight Used for Protein Requirements: [place] Weight in Kg Used for Protein Requirements: 84 kg Estimated Total Protein (g/day): 84-101 (1.0-1.2 g protein/kg IBW) Estimated Daily Total Fluid (ml/day): per MD Nutrition Related Findings: A+Ox4. +bm 11/25 with active bowel sounds. No skin break down or edema documented. Labs: bilirubin(1.5), LFTs remain elevated Wound Type: None Current Nutrition Therapies: Adult diet Regular; GI [place] (GERD/Peptic Ulcer) Current Oral Intake Average Meal Intake: 26-50%, 51-75% Average Supplements Intake: 76-100%, 51-75% Anthropometric Measures: Height: 185.4 cm (6' 1) Current Body Weight: 114 kg (252 lb) Weight Source: Stated Admission Body Weight: 114 kg (252 lb) (stated) Usual Body Weight: 122 kg (270 lb) (Per EMR --> 253# 11/06/22; 250# 06/25/23; 270# 08/10/23; 250# 10/16/23) % Weight Change (Calculated): -6.7 [place] Body Weight (lbs) (Calculated): 184 lbs [place] Body Weight (Kg) (Calculated): 84 kg % [place] Body Weight (Calculated): 137 % BMI (kg/m2) (Calculated): 33.3 Weight Adjustment For: No Adjustment BMI Categories: Obese Class 1 (BMI 30.0-34.9) Nutrition Diagnosis: Moderate malnutrition, In context of social or environmental circumstances related to inadequate protein-energy intake as evidenced by mild loss of subcutaneous fat, poor intake prior to admission, mild muscle loss Altered GI function related to altered GI function as evidenced by lab values (EtOH induced pancreatitis) Nutrition Interventions: Nutrition Education/Counseling: Education not indicated Coordination of Nutrition Care: Continue to monitor while inpatient Plan of Care discussed with: patient Goals: Previous Goal Met: Progressing toward Goal(s) (SLOWLY) Goals: other (specify) Specify Other Goals: Tolerate PO without GI distress Nutrition Monitoring and Evaluation: Behavioral-Environmental Outcomes: None Identified Food/Nutrient Intake Outcomes: Food and Nutrient Intake, Supplement Intake Physical Signs/Symptoms Outcomes: Biochemical Data, GI Status, Skin, Weight, Nausea or Vomiting, Meal Time Behavior, Hemodynamic Status, Fluid Status or Edema Discharge Planning: Continue current diet, Continue Oral Nutrition Supplement Britney Lau RDN, LDN, Contact: *[phone] * Akbar Prajapati MD - 11/27/2023 11:49 AM EDT Hospitalist Progress Note 11/27/2023 [id number]: Please page me ([phone]) for patient care issues. [phone]: Please page [facility] Hospitalist for any issues. Subjective: Admit Date: 11/17/2023 PCP: Tam Hughes, DO Room#: B2-266/B2266 B Interval History: He states abdominal pain is much better than before but the same as yesterday, and currently is about a 5 out of 10. Overall he is feeling a lot better. He said he actually ate a lot yesterday and did fine. No NV this am. Otherwise he denies any chest pain or shortness of breath. No fevers or chills. Adult diet Regular; GI [place] (GERD/Peptic Ulcer) @[id number]@ 24HR INTAKE/OUTPUT: Intake/Output Summary (Last 24 hours) at 11/27/2023 1149 Last data filed at 11/27/2023 1010 Gross per 24 hour Intake 1020 ml Output -- Net 1020 ml Past Medical History: Past Medical History: Diagnosis Date Alcohol withdrawal syndrome without complication (HCC) 06/27/2022 Alcohol withdrawal with inpatient treatment, uncomplicated (HCC) 03/15/2022 GERD (gastroesophageal reflux disease) History of pancreatitis 01/07/2023 Hypertension Pancreatitis Seizures (HCC) SVT (supraventricular tachycardia) (HCC) Tourette syndrome LABS: CBC: Recent Labs 11/25/233411/26/2320511/27/23323 WBC 6.5 7.8 8.5 RBC 3.86* 3.93* 3.76* HGB 11.7* 12.2* 11.6* HCT 35.7* 36.6* 34.8* MCV 92.5 93.1 92.6 RDW 15.9* 15.9* 15.8* PLT 225 279 325 BMP: Recent Labs 11/25/233411/26/2320511/27/23323 NA 137 135 134* K 3.2* 4.5 3.6 CL 104 104 101 CO2 BUN 4* 5* 7* CREATININE 0.47* 0.45* 0.46* GLUCOSE 110* 114* 111* CALCIUM 8.7 8.8 8.9 ANIONGAP 9 8 9 LIVER PROFILE: Recent Labs 11/25/233411/26/2320511/27/23323 AST 258* 285* 220* 220* ALT 175* 232* 226* 220* BILITOT 2.3* 2.1* 1.5* 1.6* ALKPHOS 312* 292* 295* 271* PROT 7.0 7.8 7.0 7.1 PT/INR: No results for input(s): PROTIME, INR in the last 72 hours. CARDIAC ENZYMES: No results for input(s): TROPONINI in the last 72 hours. Procalcitonin: No results found for: PROCAL COVID-19 PCR: No results for input(s): COVID19 in the last 72 hours. Objective: Vitals: BP 121/57 (BP Location: Right arm, Patient Position: Lying) Pulse 77 Temp 36.2 C (97.1 F) (Temporal) Resp 18 Ht 6' 1 (1.854 m) Wt 252 lb (114 kg) SpO2 96% BMI 33.25 kg/m Pulse Ox: SpO2 Av.7 % Min: 95 % Max: 96 % Supplemental O2: O2 Flow Rate (L/min): 2 L/min General appearance: No apparent distress, appears stated age, HEENT: Eyes: No scleral icterus Oral: Tongue is semi-moist Cardiovascular: S1/S2 heard, RRR Respiratory: Clear to auscultation bilaterally Abdomen: Soft, with some very minimal discomfort to palp of mid abdomen, no epigastric or RUQ pain today, there is no grimacing or guarding, non-distended bowel sounds positive Musculoskeletal: No obvious deformities seen Skin: No visible rashes or lesions. Medications: amLODIPine, 10 mg, Oral, Daily cloNIDine, 1 patch, TransDERmal, Weekly [Held by provider] DULoxetine, 30 mg, Oral, Daily enoxaparin, 40 mg, SubCUTAneous, Daily folic acid, 1 mg, Oral, Daily metoprolol succinate XL, 100 mg, Oral, Daily pantoprazole, 40 mg, Oral, qAM AC senna-docusate sodium, 2 tablet, Oral, BID sodium phosphate, 1 enema, Rectal, Once thiamine, 100 mg, Oral, Daily Assessment Acute, acute on chronic, unstable/uncontrolled chronic problems/diagnoses: # Acute recurrent alcoholic pancreatitis - improving with IVF and supportive tx. # Severe alcohol use disorder - ADM consulted, last drink 11/16, 11/17/23- 235 - positive for alcohol 0.027 on admission. He was told NOT to drink anymore and he acknowledges. # Elevated LFTs with hyperbilirubinemia - LFTs continue to worsen. Surgery saw and has signed off. States CT with questionable gallbladder sludge, but US normal. They feel that the elevated LFTs is related to acute on chronic liver dysfunction from alcohol use and abuse. They recommended to continue supportive care and states No surgical intervention planned. GI followed up and states acute hepatitis panel negative. Right upper quadrant ultrasound shows diffuse hepatic steatosis no gallstones. No gallbladder wall thickening. No pericholecystic fluid. Biliary ducts unremarkable. CBD 4 mm. Theyrecommended to Monitor LFTs. Held cymbalta, trazodone and Sinequan initially. LFTs starting to downtrend now. Stopped Cymbalta and Sinequan on 11/26 per patient request and resumed his Effexor that he was on outpatient instead per patient request as he does not like Cymbalta. Also resumed Trazodone. Monitor LFTs with resumption of psych meds to make sure they continue to downtrend. # Small bilateral pulmonary effusions - Echo was normal. # Bibasilar atelectasis - likely from pleural effusion along with not taking deep breaths due to pain from pancreatitis. Continue incentive spirometer # Uncontrolled Hypertension - continue on Clonidine and metoprolol. PRN Hydralazine for SBP >160. Amlodipine was added and Metroprolol was increased to 100 mg PO daily # Constipation - Prn medications # Hypertriglyceridemia # Alcohol ketosis # Anion gap metabolic acidosis - resolved # Right arm superficial cephalic vein thrombosis - monitor # Insomnia - was started on trazodone and Sinequan per addiction med but currently held due to rising LFTs. Patient states the medication is really not helping him anyways and he does not mind stopping it. # DVT proph: lovenox subcutaneous daily Stable chronic problems affecting care, new non-acute diagnoses: # Hx of MDD - He also mentioned that he was supposed to switch to Cymbalta outpatient but never didyet. He was actually started on it here because it was on his home medication but he never really was on it yet outpatient. He states he wants to go back on his Effexor as he does not like the Cymbalta. Effexor and Trazodone was on hold due to elevated LFTs but resumed on 11/26. # Hx of Palpitations # Hx Benzodiazepine withdrawal with complication >1yr ago # Hx opioid withdrawal -denies current use pending screen # HX of Polysubstance use disorder including cocaine # GERD # Hx of SVT # Chronic HTN Plan -LFT improving today. Patient states he needs his psych meds as he has bad anxiety and also he has hard time sleeping at night as well. Last night they have to give him ativan once to sleep. He wouldlike to go back on his Effexor 37.5 bid and does NOT want cymbalta. He states he was supposed to switch to Cymbalta outpatient but never did yet. He was actually started on it here because it was on his home medication but he never really was on it yet outpatient. Will resume Effexor instead per his request as he states it was changed outpatient because it didn't seem to help much but patient feels it helps better than his Cymbalta. He states he will follow up with his Psychiatrist outpatient and does NOT want to see Psych here. Also he wishes to resume his Trazodone as well. Will resume bothtoday as LFTs downtrending now and also surgery/GI feels this is more ETOH related. Will watch herefor one more day and repeat LFTs and labs again in am to make sure they continue to downtrend, especially with resuming psych meds -Continue on regular GI bland diet. He said he actually ate a lot yesterday and did fine. Still does have abdominal pain that is the same as yesterday at 5/10 pain but it is still much better than before. -continue IVF at 50 ml/hr. Recheck labs in am -will further wean his dilaudid down today. -check daily labs and trend LFTs. Possible discharge in am if LFTs continue to downtrend and he continues to clinically do good. No emergency contact information on file. Akbar Prajapati MD Division of Hospitalist Medicine Inpatient Medical Services/[facility] PAGER: Epic chat * Akbar Prajapati MD - 11/26/2023 10:39 AM EDT Hospitalist Progress Note 11/26/2023 [phone]: Please page me ([phone]) for patient care issues. [phone]: Please page [facility] Hospitalist for any issues. Subjective: Admit Date: 11/17/2023 PCP: Tam Hughes, DO Room#: B2-266/B2-266 B Interval History: He states abdominal pain is better and currently it is a 5 out of 10. Overall he is feeling a lot better and he is hoping to go home. He said he did have a little bit of nausea and a little bit of abdominal pain with his diet yesterday but he did not eat a lot and did not want to overdo it. Otherwise he denies any chest pain or shortness of breath. No nausea, vomiting currently. No fevers or chills. Adult diet Regular; GI [place] (GERD/Peptic Ulcer) @[id number]@ 24HR INTAKE/OUTPUT: Intake/Output Summary (Last 24 hours) at 11/26/2023 1039 Last data filed at 11/26/2023 0854 Gross per 24 hour Intake 360 ml Output -- Net 360 ml Past Medical History: Past Medical History: Diagnosis Date Alcohol withdrawal syndrome without complication (HCC) 06/27/2022 Alcohol withdrawal with inpatient treatment, uncomplicated (HCC) 03/15/2022 GERD (gastroesophageal reflux disease) History of pancreatitis 01/07/2023 Hypertension Pancreatitis Seizures (HCC) SVT (supraventricular tachycardia) (HCC) Tourette syndrome LABS: CBC: Recent Labs 11/24/2311911/25/233411/26/23 0206 WBC 6.8 6.5 7.8 RBC 3.96* 3.86* 3.93* HGB 12.0* 11.7* 12.2* HCT 36.8* 35.7* 36.6* MCV 92.9 92.5 93.1 RDW 15.9* 15.9* 15.9* PLT 179 225 279 BMP: Recent Labs 11/24/2311911/25/233411/26/23 020 NA 136 137 135 K 3.7 3.2* 4.5 CL 106 104 104 CO2 23 24 23 BUN 3* 4* 5* CREATININE 0.51* 0.47* 0.45* GLUCOSE 113* 110* 114* CALCIUM 8.7 8.7 8.8 ANIONGAP 7 9 8 LIVER PROFILE: Recent Labs 11/24/2311911/25/233411/26/23 0206 AST 195* 258* 285* ALT 121* 175* 232* BILITOT 2.8* 2.3* 2.1* ALKPHOS 293* 312* 292* PROT 6.9 7.0 7.8 PT/INR: No results for input(s): PROTIME, INR in the last 72 hours. CARDIAC ENZYMES: No results for input(s): TROPONINI in the last 72 hours. Procalcitonin: No results found for: PROCAL COVID-19 PCR: No results for input(s): COVID19 in the last 72 hours. Objective: Vitals: BP 147/94 (BP Location: Left arm, Patient Position: Sitting) Pulse 65 Temp 36.3 C (97.4F) (Temporal) Resp 16 Ht 6' 1 (1.854 m) Wt 252 lb (114 kg) SpO2 98% BMI 33.25 kg/m Pulse Ox: SpO2 Av.5 % Min: 97 % Max: 98 % Supplemental O2: O2 Flow Rate (L/min): 2 L/min General appearance: No apparent distress, appears stated age, HEENT: Eyes: No scleral icterus Oral: Tongue is semi-moist Cardiovascular: S1/S2 heard, RRR Respiratory: Clear to auscultation bilaterally Abdomen: Soft, with some very minimal discomfort to palp of epigastric/mid abdomen and RUQ, there is no grimacing or guarding, non-distended bowel sounds positive Musculoskeletal: No obvious deformities seen Skin: No visible rashes or lesions. Medications: amLODIPine, 10 mg, Oral, Daily cloNIDine, 1 patch, TransDERmal, Weekly [Held by provider] DULoxetine, 30 mg, Oral, Daily enoxaparin, 40 mg, SubCUTAneous, Daily folic acid, 1 mg, Oral, Daily metoprolol succinate XL, 100 mg, Oral, Daily pantoprazole, 40 mg, Oral, qAM AC senna-docusate sodium, 2 tablet, Oral, BID sodium phosphate, 1 enema, Rectal, Once thiamine, 100 mg, Oral, Daily Assessment Acute, acute on chronic, unstable/uncontrolled chronic problems/diagnoses: # Acute recurrent alcoholic pancreatitis - improving with IVF and supportive tx. # Severe alcohol use disorder - ADM consulted, last drink 11/16, 11/17/23- 235 - positive for alcohol 0.027 on admission. # Elevated LFTs with hyperbilirubinemia - LFTs continue to worsen. Surgery saw and has signed off. States CT with questionable gallbladder sludge, but US normal. They feel that the elevated LFTs is related to acute on chronic liver dysfunction from alcohol use and abuse. They recommended to continue supportive care and states No surgical intervention planned. GI followed up and states acute hepatitis panel negative. Right upper quadrant ultrasound shows diffuse hepatic steatosis no gallstones. No gallbladder wall thickening. No pericholecystic fluid. Biliary ducts unremarkable. CBD 4 mm. Theyrecommended to Monitor LFTs. Holding cymbalta, trazodone and Sinequan. Will Trend # Small bilateral pulmonary effusions - Echo was normal. # Bibasilar atelectasis - likely from pleural effusion along with not taking deep breaths due to pain from pancreatitis. Continue incentive spirometer # Uncontrolled Hypertension - continue on Clonidine and metoprolol. PRN Hydralazine for SBP >160. Amlodipine was added and Metroprolol was increased to 100 mg PO daily # Constipation - Prn medications # Hypertriglyceridemia # Alcohol ketosis # Anion gap metabolic acidosis - resolved # Right arm superficial cephalic vein thrombosis - monitor # Insomnia - was started on trazodone and Sinequan per addiction med but currently held due to rising LFTs. Patient states the medication is really not helping him anyways and he does not mind stopping it. # DVT proph: lovenox subcutaneous daily Stable chronic problems affecting care, new non-acute diagnoses: # Hx of MDD - Currently holding cymbalta, trazodone and Sinequan due to elevated LFTs. He also mentioned that he was supposed to switch to Cymbalta outpatient but never did yet. He was actually started on it here because it was on his home medication but he never really was on it yet outpatient. Hestates he wants to go back on his Effexor in the future as he does not like the Cymbalta. # Hx of Palpitations # Hx Benzodiazepine withdrawal with complication >1yr ago # Hx opioid withdrawal -denies current use pending screen # HX of Polysubstance use disorder including cocaine # GERD # Hx of SVT # Chronic HTN Plan -LFT continues to worsen. Continue holding cymbalta, trazodone and Sinequan. Also he states the medication for sleep that the addiction medicine doctor put him on is really not helping and he does not mind stopping it. -Surgery saw and has signed off. States CT with questionable gallbladder sludge, but US normal. They feel that the elevated LFTs is related to acute on chronic liver dysfunction from alcohol use and abuse. They recommended to continue supportive care and states No surgical intervention planned -GI followed up and states acute hepatitis panel negative. Right upper quadrant ultrasound shows diffuse hepatic steatosis no gallstones. No gallbladder wall thickening. No pericholecystic fluid. Biliary ducts unremarkable. CBD 4 mm. They recommended to Monitor LFTs -patient doing okay on regular GI bland diet. Did have a little bit of nausea and abdominal pain with it. Says he did not eat a lot and did not overdo it, currently is off IVF now. Will resume IV fluid for now at 75 cc/h. -will wean his dilaudid down today. -check daily labs and trend LFTs. No emergency contact information on file. Akbar Prajapati MD Division of Hospitalist Medicine Inpatient Medical Services/[facility] PAGER: Epic chat * Akbar Prajapati MD - 11/25/2023 12:40 PM EDT Hospitalist Progress Note 11/25/[id number]: Please page me ([phone]) for patient care issues. [phone]: Please page [facility] Hospitalist for any issues. Subjective: Admit Date: 11/17/2023 PCP: Tam Hughes, DO Room#: B2-266/B2-266 B Interval History: Denies chest pain or sob. He states his abdominal pain is actually better today. He said the pain is only a 6 out of 10. He is actually requesting to advance his diet. He also mentioned that he was supposed to switch to Cymbalta outpatient but never did yet. He was actually started on it here because it was on his home medication but he never really was on it yet outpatient. He is requesting to go back on his Effexor as he does not like the Cymbalta. Also he states the medication for sleep that the addiction medicine doctor put him on is really not helping and he does not mind stopping it. He denies any nausea, vomiting currently. No fevers or chills. Adult diet Regular; GI [place] (GERD/Peptic Ulcer) @[id number]@ 24HR INTAKE/OUTPUT: Intake/Output Summary (Last 24 hours) at 11/25/2023 1240 Last data filed at 11/25/2023 0312 Gross per 24 hour Intake 2154.16 ml Output -- Net 2154.16 ml Past Medical History: Past Medical History: Diagnosis Date Alcohol withdrawal syndrome without complication (HCC) 06/27/2022 Alcohol withdrawal with inpatient treatment, uncomplicated (HCC) 03/15/2022 GERD (gastroesophageal reflux disease) History of pancreatitis 01/07/2023 Hypertension Pancreatitis Seizures (HCC) SVT (supraventricular tachycardia) (HCC) Tourette syndrome LABS: CBC: Recent Labs 11/23/23 0418 11/24/23 0120 11/25/23 0035 WBC 6.0 6.8 6.5 RBC 4.07* 3.96* 3.86* HGB 12.5* 12.0* 11.7* HCT 37.4* 36.8* 35.7* MCV 91.9 92.9 92.5 RDW 15.7* 15.9* 15.9* PLT 144 179 225 BMP: Recent Labs 11/23/2341711/24/230 11/25/23 003 NA 135 136 137 K 3.4* 3.7 3.2* CL 104 106 104 CO2 BUN 7* 3* 4* CREATININE 0.51* 0.51* 0.47* GLUCOSE 111* 113* 110* CALCIUM 8.8 8.7 8.7 ANIONGAP 8 7 9 LIVER PROFILE: Recent Labs 11/23/2341711/24/2311911/25/2334 AST 141* 195* 258* ALT 74* 121* 175* BILITOT 3.8* 2.8* 2.3* ALKPHOS 205* 293* 312* PROT 6.7 6.9 7.0 PT/INR: No results for input(s): PROTIME, INR in the last 72 hours. CARDIAC ENZYMES: No results for input(s): TROPONINI in the last 72 hours. Procalcitonin: No results found for: PROCAL COVID-19 PCR: No results for input(s): COVID19 in the last 72 hours. Objective: Vitals: BP 156/100 (BP Location: Left arm, Patient Position: Sitting) Pulse 78 Temp 36.4 C (97.6 F) (Temporal) Resp 18 Ht 6' 1 (1.854 m) Wt 252 lb (114 kg) SpO2 96% BMI 33.25 kg/m Pulse Ox: SpO2 Av % Min: 94 % Max: 96 % Supplemental O2: O2 Flow Rate (L/min): 2 L/min General appearance: No apparent distress, appears stated age, HEENT: Eyes: No scleral icterus Oral: Tongue is semi-moist Cardiovascular: S1/S2 heard, RRR Respiratory: Clear to auscultation bilaterally Abdomen: Soft, with some pain to palp of epigastric/mid abdomen and RUQ but seems mild, no grimacing or guarding, non-distended bowel sounds positive Musculoskeletal: No obvious deformities seen Skin: No visible rashes or lesions. Medications: amLODIPine, 10 mg, Oral, Daily cloNIDine, 1 patch, TransDERmal, Weekly DULoxetine, 30 mg, Oral, Daily folic acid, 1 mg, Oral, Daily metoprolol succinate XL, 100 mg, Oral, Daily pantoprazole, 40 mg, Oral, qAM AC senna-docusate sodium, 2 tablet, Oral, BID sodium phosphate, 1 enema, Rectal, Once thiamine, 100 mg, Oral, Daily Assessment Acute, acute on chronic, unstable/uncontrolled chronic problems/diagnoses: # Acute recurrent alcoholic pancreatitis - improving with IVF and supportive tx. # Severe alcohol use disorder - ADM consulted, last drink 11/16, 11/17/23- 235 - positive for alcohol 0.027 # Elevated LFTs with hyperbilirubinemia - LFTs continue to worsen. Surgery saw and has signed off. States CT with questionable gallbladder sludge, but US normal. They feel that the elevated LFTs is related to acute on chronic liver dysfunction from alcohol use and abuse. They recommended to continue supportive care and states No surgical intervention planned. GI followed up and states acute hepatitis panel negative. Right upper quadrant ultrasound shows diffuse hepatic steatosis no gallstones. No gallbladder wall thickening. No pericholecystic fluid. Biliary ducts unremarkable. CBD 4 mm. Theyrecommended to Monitor LFTs. Will hold cymbalta, trazodone and Sinequan. # Small bilateral pulmonary effusions - Echo was normal. # Bibasilar atelectasis - likely from pleural effusion along with not taking deep breaths due to pain from pancreatitis. Continue incentive spirometer # Uncontrolled Hypertension - continue on Clonidine and metoprolol. PRN Hydralazine for SBP >160. Amlodipine was added and Metroprolol was increased to 100 mg PO daily # Constipation - Prn medications # Hypertriglyceridemia # Alcohol ketosis # Anion gap metabolic acidosis - resolved Stable chronic problems affecting care, new non-acute diagnoses: # Recurrent MDD, 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 # Palpitations # Hx Benzodiazepine withdrawal with complication >1yr ago # Hx opioid withdrawal -denies current use pending screen # HX of Polysubstance use disorder including cocaine # GERD # Hx of SVT # Chronic HTN Plan -LFT continues to worsen. Will hold cymbalta, trazodone and Sinequan. He also mentioned that he wassupposed to switch to Cymbalta outpatient but never did yet. He was actually started on it here because it was on his home medication but he never really was on it yet outpatient. He is requesting togo back on his Effexor as he does not like the Cymbalta.Also he states the medication for sleep that the addiction medicine doctor put him on is really not helping and he does not mind stopping it. -Surgery saw and has signed off. States CT with questionable gallbladder sludge, but US normal. They feel that the elevated LFTs is related to acute on chronic liver dysfunction from alcohol use and abuse. They recommended to continue supportive care and states No surgical intervention planned -GI followed up and states acute hepatitis panel negative. Right upper quadrant ultrasound shows diffuse hepatic steatosis no gallstones. No gallbladder wall thickening. No pericholecystic fluid. Biliary ducts unremarkable. CBD 4 mm. They recommended to Monitor LFTs -continue IVF same today at 125 ml/hr -advance diet to regular per patient request. -check daily labs No emergency contact information on file. Akbar Prajapati MD Division of Hospitalist Medicine Inpatient Medical Services/[facility] [place] PAGER: Epic chat * Dov Vanegas MD - 11/25/2023 6:43 AM EDT Images from the original note were not included. ADDICTION MEDICINE PROGRESS NOTE Patient: Roro Valdivia __ Problem List: Principal Problem: Acute pancreatitis without infection or necrosis Active Problems: Moderate malnutrition (CMS/HCC) (HCC) SUBJECTIVE Chief Complaint Patient presents with Abdominal Pain Alcohol Problem Pt seen and examined. Notes abd pain improved by comparison to yesterday. States that he doesn't want to go home until his abd pain improves and LFTs stabilize. Notes he is eating, drinking, passing gas, stool and making urine without issue. Denies any other concerns at this time. He plans to attend [facility] at time of discharge. No SI/HI or AVH. No other concerns. Interim History The Pt, Mr. Valdivia, is a 38 y/o M w/ a PMHx of Severe AUD, Severe OUD, Cocaine use disorder, Recurrent pancreatitis, Panic disorder, HTN and depression. Pt was admitted into [facility] for pancretitis andacute alcohol withdrawal. ADM consulted to assist in management of chemical detox. Review of Systems A 14 system ROS was collected and is negative unless otherwise noted above. OBJECTIVE Vitals Vitals: 11/24/23 0424 11/24/23 0715 11/24/23 1333 11/24/232009 BP: 148/86 (!) 163/97 159/95 BP Location: Patient Position: Pulse: 78 87 73 Resp: 20 20 Temp: 36.9 C (98.4 F) 36.7 C (98.1 F) TempSrc: Temporal Temporal SpO2: 98% 94% Weight: Height: 1.854 m (6' 1) Physical Exam Constitutional: Appearance: He is obese. He is not diaphoretic. HENT: Head: Normocephalic and atraumatic. Nose: Nose normal. Mouth/Throat: Mouth: Mucous membranes are dry. Eyes: Extraocular Movements: Extraocular movements intact. Pupils: Pupils are equal, round, and reactive to light. Cardiovascular: Rate and Rhythm: Normal rate. Pulses: Normal pulses. Pulmonary: Effort: Pulmonary effort is normal. No respiratory distress. Breath sounds: Normal breath sounds. Abdominal: General: There is no distension. Palpations: Abdomen is soft. Musculoskeletal: General: No deformity. Normal range of motion. Cervical back: Normal range of motion and neck supple. Skin: General: Skin is warm. Coloration: Skin is not jaundiced. Neurological: General: No focal deficit present. Mental Status: He is alert and oriented to person, place, and time. Psychiatric: Behavior: Behavior normal. Thought Content: Thought content normal. Medications Home Meds Current Outpatient Medications Medication Instructions cloNIDine (CATAPRES) 0.1 mg, Oral, 3 times daily DULoxetine (CYMBALTA) 30 mg, Oral, Daily, Do not crush or chew. hydrOXYzine HCl (ATARAX) 50 mg, Oral, 2 times daily PRN melatonin 5 mg, Oral, Nightly PRN metoprolol succinate XL (TOPROL-XL) 50 mg, Oral, Daily, Do not crush or chew. omeprazole (PRILOSEC) 20 mg, Oral, Daily before breakfast, Do not crush or chew. risperiDONE (RISPERDAL) 1 mg, Oral, 2 times daily Scheduled Inpatient Meds amLODIPine, 10 mg, Oral, Daily cloNIDine, 1 patch, TransDERmal, Weekly DULoxetine, 30 mg, Oral, Daily folic acid, 1 mg, Oral, Daily metoprolol succinate XL, 100 mg, Oral, Daily pantoprazole, 40 mg, Oral, qAM AC senna-docusate sodium, 2 tablet, Oral, BID sodium phosphate, 1 enema, Rectal, Once thiamine, 100 mg, Oral, Daily PRN Inpatient Meds PRN medications: bisacodyl, cloNIDine, dicyclomine, doxepin, hydrALAZINE, HYDROmorphone, hydrOXYzine pamoate, iopamidol, levalbuterol, naloxone, ondansetron ODT OR ondansetron, oxyCODONE, perflutren protein A microsphere (Optison) 3 mL in sodium chloride (PF) 0.9 % 10 mL IV syringe, polyethylene glycol (PEG) 3350, prochlorperazine, simethicone, traZODone Continuous Inpatient Infusions sodium chloride, 125 mL/hr, Last Rate: 125 mL/hr (11/25/23 0312) Recent Imaging CT abdomen pelvis w contrast Result Date: 11/18/2023 [facility] 1985 [id number] Date/Time: 11/18/2023 02:04 Procedure: CT ABDOMEN PELVIS W CONTRAST Ordering Provider: JETT J Reason For Exam: Pancreatitis, acute, severe HISTORY: Pancreatitis After intravenous contrast sections performed through the abdomen and pelvis. Dose reduction was performed with automated exposure control. FINDINGS: 1. Changes of severe acute pancreatitis with mildly enlarged pancreas with extensive peripancreatic fluid extending into the anterior pararenal spaces and right upper quadrant (inferior to gallbladder and liver). 2. Moderate fatty infiltration liver with nondilated biliary system and no calcified gallstones identified with probable prior appendectomy. Report Dictated on Electronically Signed By: Gagan Rich MD Electronically Signed Date/Time: 11/18/2023 2:14 AM EDT Labs CBC: Recent Labs 11/23/23 0418 [id number] WBC 6.0 6.8 6.5 HGB 12.5* 12.0* 11.7* PLT 144 179 225 MCV 91.9 92.9 92.5 RDW 15.7* 15.9* 15.9* BMP: Recent Labs 11/23/2341711/24/2311911/25/2334 NA 135 136 137 K 3.4* 3.7 3.2* CL 104 106 104 CO2 BUN 7* 3* 4* CREATININE 0.51* 0.51* 0.47* CALCIUM 8.8 8.7 8.7 MG 2.4* -- 2.4* Liver Profile: Recent Labs 11/23/2341711/24/2311911/25/2334 AST 141* 195* 258* ALT 74* 121* 175* BILITOT 3.8* 2.8* 2.3* ALKPHOS 205* 293* 312* PROT 6.7 6.9 7.0 LIPASE 183 -- -- Glucose: Recent Labs 11/23/2341711/24/2311911/25/2334 GLUCOSE 111* 113* 110* Lactic Acid: No lab exists for component: LACTA Cardiac Injury Profile: No results for input(s): CKTOTAL, CKMB, TROPONINI in the last 72 hours. Last 24 Hours: Recent Results (from the past 24 hour(s)) CBC auto differential Collection Time: 11/25/23 12:35 AM Result Value Ref Range Auto WBC 6.5 3.6 - 10.7 10*3/uL RBC 3.86 (L) 4.40 - 5.90 10*6/uL Hemoglobin 11.7 (L) 13.0 - 18.0 g/dL Hematocrit 35.7 (L) 40.0 - 52.0 % MCV 92.5 77.0 - 99.0 fL MCH 30.3 26.0 - 34.0 pg MCHC 32.8 30.5 - 36.0 % RDW 15.9 (H) 11.5 - 15.0 % Platelets 225 140 - 440 10*3/uL MPV 10.1 9.0 - 12.7 fL nRBC 0.0 0.0 - 2.0 /100 WBCs Comprehensive metabolic panel Collection Time: 11/25/23 12:35 AM Result Value Ref Range SODIUM 137 135 - 145 mmol/L POTASSIUM 3.2 (L) 3.5 - 5.1 mmol/L CHLORIDE 104 98 - 107 mmol/L CARBON DIOXIDE 24 22 - 30 mmol/L ANION GAP 9 3 - 13 mmol/L UREA NITROGEN 4 (L) 9 - 20 mg/dL CREATININE 0.47 (L) 0.66 - 1.25 mg/dL GLUCOSE 110 (H) 70 - 100 mg/dL CALCIUM 8.7 8.4 - 10.4 mg/dL AST (SGOT) 258 (H) 15 - 46 U/L ALT 175 (H) 0 - 49 U/L ALKALINE PHOSPHATASE 312 (H) 38 - 126 U/L ALBUMIN 3.6 3.5 - 5.0 g/dL BILIRUBIN, TOTAL 2.3 (H) 0.2 - 1.3 mg/dL TOTAL PROTEIN 7.0 6.3 - 8.2 g/dL eGFR >90.0 >60.0 mL/min/1.73m*2 Magnesium Collection Time: 11/25/23 12:35 AM Result Value Ref Range MAGNESIUM 2.4 (H) 1.6 - 2.3 mg/dL Man Differential Collection Time: 11/25/23 12:35 AM Result Value Ref Range Adjusted WBC 6.5 3.6 - 10.7 10*3/uL Neutrophils % 67 38 - 82 % Bands % 2 (H) <=0 % Lymphocytes % 11 (L) 15 - 45 % Atypical Lymphocytes % 6 (H) <=0 % Monocytes % 11 5 - 13 % Metamyelocytes % 1 (H) <=0 % Myelocytes % 2 (H) <=0 % Absolute Neutrophil Count 4.5 1.8 - 7.0 10*3/uL Segs Absolute 4.5 1.8 - 7.5 10*3/uL Bands Absolute 0.1 (H) <=0.0 10*3/uL Lymphocytes Absolute 0.7 (L) 1.0 - 4.3 10*3/uL Atypical Lymphs Absolute 0.4 (H) <=0.0 10*3/uL Monocytes Absolute 0.7 0.0 - 0.9 10*3/uL Metamyelocytes Absolute 0.1 (H) <=0.0 10*3/uL Myelocytes Absolute 0.1 (H) <=0.0 10*3/uL Anisocytosis Slight (A) (none) Poikilocytes Moderate (A) (none) Target Cells Slight (A) (none) Ovalocytes Slight (A) (none) Stomatocytes Moderate (A) (none) WBC Morphology Normal PLT Morphology Normal Total Counted 100 Neutrophils Manual 67 Lymphocytes Manual 11 Monocytes Manual 11 Bands Manual 2 Metamyelocytes Manual 1 Myelocytes Manual 2 Atypical Lymphocytes Manual 6 Differential Method Manual differential performed ASSESSMENT & PLAN Severe alcohol use disorder ETOH withdrawal - resolved Counseled patient on biopsychosocial consequences of substance use. Discussed aftercare including AA/NA, 1:1 counseling, IOP and residential treatment Discussed MAT including Acamprosate, Disulfiram, Naltrexone and Vivitrol Follow up plan for addiction management discussed with patient: Pt would like to continue with his current ADM provider (Dr. Escobar) Pt reports that he is interested in discharge to [facility]. He has attended [facility] in the past and notes that he was successful while there in maintaining his sobriety. Pt reports I was sober for 100 days when I was there and that's the longest I've been sober since I started drinking. PRN medications: Bentyl 20mg Q8H PRN for stomach cramps Doxepine 10mg PO at bedtime 1st line for sleep Vistaril 50mg Q6H PRN for anxiety Trazodone 50mg PRN at bedtime for sleep Abdominal pain Constipation? Transaminitis Unclear pathology AST / ALT continue up trending Pt reports significant pain overnight. Pt reports he has had a couple of Bowel movements since yesterday. PLAN: PPI 40mg PO Daily Bentyl 20mg PO Q8H PRN for abd cramps Dilaudid 1mg IV Q3H PRN Senokot 2 tabs BID Bisacodyl suppository 10mg PRN Daily GI on board and following from peripheral with recommendation of: -Analgesics and antiemetics per primary service -Supportive therapies per primary service -Monitor LFTs -Continue liquid diet with nutritional supplements until abdominal pain trends down further -Encourage complete cessation of all alcohol. Surgery evaluated Pt and report no surgical intervention at this time and have signed off. HTN BP remains elevated Could be 2/2 pain but again unclear etiology - unlikely related to withdrawal Metop Succinate 100mg PO Daily Norvasc 10mg PO Daily Continue to monitor No PRN hydralazine in > 24 hours Disposition: Discharge anticipated in ? days. This is pending: Withdrawal symptoms - resolved Medical stabilization - abd pain / elevated LFTs Labs/tests/tasks to review: N/A. Nurse Ob to coordinate care with: N/A. ADM to sign off at this time. Pt has successfully chemically detoxed. He plans to attend residential treatment through [facility] where he has been successful in the past. Pt wishes to continue with his current MAT provider Dr. Escobar. GI and Surgical services consulted to assist with abd pain and elevted LFTs. Recommendation by GI as outlined above. Surg team reports no surgical intervention and have signed off. Please do not hesitate to reach out to ADM services should need arise. A total of 36 minutes were spent reviewing the patient's records, evaluating the patient, entering orders, coordinating care with the treatment team, and creating this note. I reviewed the patient's medical record, and reviewed test results. I educated and then counseled the patient on any substance use disorder or chemical dependency related issues. This included a faceto face evaluation and physical examination, and coordinating care on a substance use disorder treatment plan as well as documenting clinical information on the day of visit. * Guillermo Richardson MD - 11/24/2023 5:53 PM EDT Images from the original note were not included. SUBJECTIVE: No events overnight. Patient sitting up in chair comfortably at this time although complaining of 7 out of 10 abdominal pain. He reports that he was switched to oral pain medications which he feels are not as effective as IV medications. Able to tolerate some liquid intake but reports that it does cause some increase in abdominal pain. lipase has normalized. Patient reports having a bowel movement. Patient reports occasional nausea when the abdominal pain flares. Denies chest pain, shortness of breath, fever/chills. CURRENT MEDICATIONS: Current Facility-Administered Medications: amLODIPine (Norvasc) tablet 10 mg, 10 mg, Oral, Daily, Dov Vanegas MD, 10 mg at 11/24/23 1001 bisacodyl (Dulcolax) suppository 10 mg, 10 mg, Rectal, Daily PRN, Nevaeh Marin MD, 10 mg at 11/22/23 1509 cloNIDine (Catapres) tablet 0.1 mg, 0.1 mg, Oral, q6h PRN, Dov Vanegas MD cloNIDine (Catapres-TTS) 0.1 MG/24HR 1 patch, 1 patch, TransDERmal, Weekly, Blayne Allen MD, 1 patch at 11/18/23 0849 dicyclomine (Bentyl) capsule 20 mg, 20 mg, Oral, q8h PRN, Dov Vanegas MD, 20 mg at 11/24/23 1015 doxepin (SINEquan) capsule 10 mg, 10 mg, Oral, Nightly PRN, Dov Vanegas MD, 10 mg at 11/24/23 0157 DULoxetine (Cymbalta) DR capsule 30 mg, 30 mg, Oral, Daily, Blayne Allen MD, 30 mg at 11/24/23 1000 folic acid (Folvite) tablet 1 mg, 1 mg, Oral, Daily, Blayne Allen MD, 1 mg at 11/24/23 1001 hydrALAZINE (Apresoline) injection 5 mg, 5 mg, IntraVENous, q4h PRN, Blayne Allen MD, 5 mg at 11/22/23 0328 HYDROmorphone (Dilaudid) injection 1 mg, 1 mg, IntraVENous, q3h PRN, Linda Kohler MD, 1 mgat 11/24/23 1613 hydrOXYzine pamoate (Vistaril) capsule 50 mg, 50 mg, Oral, q6h PRN, Dov Vanegas MD, 50 mg at 11/24/23 1000 iopamidol (Isovue-370) 76 % injection 100 mL, 100 mL, IntraVENous, Once PRN, Linda Kohler MD levalbuterol (Xopenex) 0.63 MG/3ML nebulizer solution 0.63 mg, 0.63 mg, Nebulization, q8h PRN, Linda Kohler MD, 0.63 mg at 11/20/23 1626 metoprolol succinate XL (Toprol-XL) 24 hr tablet 100 mg, 100 mg, Oral, Daily, Linda Kohler MD, 100 mg at 11/24/23 1001 naloxone (Narcan) injection 0.4 mg, 0.4 mg, IntraVENous, q5 min PRN, Blayne Allen MD ondansetron ODT (Zofran-ODT) disintegrating tablet 4 mg, 4 mg, Oral, q8h PRN OR ondansetron (Zofran) injection 4 mg, 4 mg, IntraVENous, q6h PRN, Blayne Allen MD, 4 mg at 11/24/23 1612 oxyCODONE (Roxicodone) immediate release tablet 5 mg, 5 mg, Oral, q6h PRN, Linda Kohler MD, 5 mg at 11/24/23 0157 pantoprazole (ProtoNix) EC tablet 40 mg, 40 mg, Oral, qAM AC, Dov Vanegas MD, 40 mg at 11/24/23 0616 perflutren protein A microsphere (Optison) 3 mL in sodium chloride (PF) 0.9 % 10 mL IV syringe, 0-10 mL, IntraVENous, Once PRN, Linda Kohler MD polyethylene glycol (PEG) 3350 (Miralax) packet 17 g, 17 g, Oral, Daily PRN, Blayne Allen MD, 17 g at 11/19/23 0826 prochlorperazine (Compazine) injection 5 mg, 5 mg, IntraVENous, q6h PRN, Blayne Allen MD, 5 mg at12024 senna-docusate sodium (Senokot-S) 8.6-50 MG tablet 2 tablet, 2 tablet, Oral, BID, Nevaeh Marin MD, 2 tablet at 11/24/23 1000 simethicone (Mylicon) chewable tablet 80 mg, 80 mg, Oral, 4x daily PRN, Nevaeh Marin MD, 80 mg at 11/24/23 1015 sodium chloride 0.9 % infusion, 125 mL/hr, IntraVENous, Continuous, Akbar Prajapati MD, Last Rate: 125 mL/hr at 11/24/23 1613, 125 mL/hr at 11/24/23 1613 sodium phosphate (Fleets) enema 1 enema, 1 enema, Rectal, Once, Linda Kohler MD thiamine (Vitamin B1) tablet 100 mg, 100 mg, Oral, Daily, Blayne Allen MD, 100 mg at 11/24/23 1001 traZODone (Desyrel) tablet 50 mg, 50 mg, Oral, Nightly PRN, Dov Vanegas MD, 50 mg at 11/23/23 2219 OBJECTIVE VITALS: BP (!) 163/97 Pulse 87 Temp 36.9 C (98.4 F) (Temporal) Resp 20 Ht 6' 1 (1.854 m) Wt 252 lb (114 kg) SpO2 98% BMI 33.25 kg/m TEMPERATURE: Current - Temp: 36.9 C (98.4 F); Max - Temp Av.8 C (98.3 F) Min: 36.7 C (98 F) Max: 37 C (98.6 F) RESPIRATIONS RANGE: Resp Av.3 Min: 18 Max: 20 PULSE RANGE: Pulse Av Min: 68 Max: 87 BLOOD PRESSURE RANGE: Systolic (24hrs), Av , Min:148 , Max:163 ; Diastolic (24hrs), Av, Min:86, Max:98 PULSE OXIMETRY RANGE: SpO2 Av % Min: 96 % Max: 98 % 24HR INTAKE/OUTPUT: Intake/Output Summary (Last 24 hours) at 11/24/2023 1754 Last data filed at 11/24/2023 1607 Gross per 24 hour Intake 2231.25 ml Output 3 ml Net 2228.25 ml GENERAL: Pleasant and NAD. HEENT: NCAT, PERRLA, EOMI, Scleral anicteric. Oropharhynx clear with no erythema or exudate. Neck supple, no cervical LAD or thyromegaly. CV: RRR, NL S1/S2, no murmurs. Distal pulses palpable and equal b/l. LUNGS: CTA b/l. Normal percussion and palpation. No W/R/R. ABD: + BS, soft, mild epigastric tenderness to palpation. Non-distended. No hepatosplenomegaly. No mass felt. No rebound or guarding. EXT: No C/C/E. No muscle atrophy. SKIN: No skin lesion or breakdown. NEURO: A&O x 3, CN II-XII grossly intact. No asterixis. Laboratory Data: CBC: Results from last 7 days Lab Units 11/24/2311911/23/2341711/22/23340 WBC AUTO 10*3/uL 6.8 6.0 5.9 HEMOGLOBIN g/dL 12.0* 12.5* 12.2* HEMATOCRIT % 36.8* 37.4* 35.7* PLATELETS 10*3/uL 179 144 142 CMP: Recent Labs 11/23/238 11/24/23119 NA 135 136 K 3.4* 3.7 CL 104 106 CO2 24 23 BUN 7* 3* CREATININE 0.51* 0.51* GLUCOSE 111* 113* CALCIUM 8.8 8.7 HEPATIC: Results from last 7 days Lab Units 11/24/230 11/23/2341711/22/23 034 ALK PHOS U/L 293* 205* 140* BILIRUBIN TOTAL mg/dL 2.8* 3.8* 4.0* PROTEIN TOTAL g/dL 6.9 6.7 6.3 ALT U/L 121* 74* 56* AST U/L 195* 141* 121* LIPASE/AMYLASE: Recent Labs 11/23/23417 LIPASE 183 LACTATE: No lab exists for component: LACTA TROPONIN: No results for input(s): TROPONINI in the last 72 hours. LIPIDS: No results for input(s): CHOL, HDL in the last 72 hours. No lab exists for component: LDLCALCU INR: No results for input(s): INR in the last 72 hours. NH3:No results for input(s): AMMONIA in the last 72 hours. Imaging: CTA: IMPRESSION: 1. No pulmonary artery embolus. 2. Bilateral small pleural effusions, left greater than right, with compressive atelectasis. New compared to 11/18/2023. 3. Cardiomegaly. Pulmonary vascular congestion. 4. Hepatic steatosis. 5. Splenomegaly. 6. CT abdomen and pelvis 11/18/2023 better demonstrates the acute pancreatitis. Interval increase influid in the left upper quadrant. ASSESSMENT AND PLAN Hypertension Alcohol abuse: -Encourage complete cessation of all alcohol -CIWA -Thiamine and folic acid -Addiction medicine following Acute pancreatitis: Likely related to alcohol abuse. CT scan showed severe acute pancreatitis with mildly enlarged pancreas with extensive peripancreatic fluid extending into the anterior perirenal space and right upper quadrant. Fatty infiltration of liver. Nondilated biliary system. No calcified gallstones identified. Triglycerides 232. No family history of pancreas issues. Lipase has normalized. Patient still having epigastric abdominal pain radiating to the back. -Analgesics and antiemetics per primary service -Supportive therapies per primary service -Monitor LFTs -Continue liquid diet with nutritional supplements until abdominal pain trends down further -Encourage complete cessation of all alcohol. Patient reports he does not want to drink alcohol anymore after discharge. 4. Elevated LFTs: On admission transaminases were elevated but then slowly trended down However nowthey seem to be trending up. Alkaline phosphatase is also elevated 293 today. In total bilirubin was increasing but has seemed to decrease now. Today 2.8. Acute hepatitis panel negative. Right upper quadrant ultrasound shows diffuse hepatic steatosis no gallstones. No gallbladder wall thickening. No pericholecystic fluid. Biliary ducts unremarkable. CBD 4 mm. -Monitor LFTs -General Surgery following GI service will follow peripherally. Please feel free to reach out with any questions or concerns. (Comment: Please note this report has been produced using speech recognition software and may contain errors related to that system including errors in grammar, punctuation, and spelling, as well as words and phrases that may be inappropriate. If there are any questions or concerns please feel freeto contact the dictating provider for clarification.) * Britney Lau RD - 11/24/2023 2:49 PM EDT Nutrition Assessment Type and Reason for Visit: Reassess Nutrition Recommendations/Plan: Continue Full Liquid diet; +ADAT Encourage patient to participate in room service and order well balanced meals Per MNT Protocol, ordered: Ensure High Protein TID (+160 kcal, 16 g protein, 240 mL/serving) Please record % meals and oral nutrition supplements consumed in flowsheet for most accurate nutrient intake assessment. Obtain actual standing weight for most accurate anthropometric data RDN to continue to monitor weekly: fluid accumulation, weight, skin integrity, trends in lab values, tolerance of PO, improvement in clinical status, discharge planning. Malnutrition Assessment: Malnutrition Status: Moderate malnutrition Context: Social/Environmental Circumstances Nutrition Assessment: 38 year old man who remains admitted to [facility] with acute pancreatitis flare, exacerbated by EtOH use/abuse [employer]. In initial RDN assessment, patient endorsed minimal food intake, main caloric source was alcohol. ADM and GI consulted and following, initial imaging showed severe acute pancreatitis with enlarged pancreas and extensive peripancreatic fluid into anterior perirenal space and RUQ. +BM 11/20and 11/22. Reported improvement in symptoms on 11/20, then worsened on 11/21 and 11/22 with alternating PO and IV pain medications. Repeat imaging obtained on 11/21 showed: Resolving pancreatitis, slightly decreased bilateral small pleural effusions, left greater than right. Interval development ofedema within the subcutaneous fatty tissue of the ventral abdomen. Hepatic steatosis. Splenomegaly.Colonic diverticulosis . +LFTs continue to rise, improvement in bilirubin. +fleet enema on 11/22\. Patient sitting in chair at time of assessment, watching movie on phone. Recalls eating a Jell-O and a pudding today. Agreeable to resume Ensure High Protein TID until able to advance diet. Inquiredif pain was improved, patient replied: Yeah, now that I have the meds, but I mean not really. Asked for a Coke. No concerns to voice Estimated Daily Nutrient Needs: Energy Requirements Based On: Kcal/kg Weight Used for Energy Requirements: [place] Weight for Energy Calculation (kg): 84 kg Total Energy Requirements (kcals/day): 5931-6354 (25-30 kcal/kg IBW) Weight Used for Protein Requirements: [place] Weight in Kg Used for Protein Requirements: 84 kg Estimated Total Protein (g/day): 84-101 (1.0-1.2 g protein/kg IBW) Estimated Daily Total Fluid (ml/day): per MD Nutrition Related Findings: No skin break down noted, Froylan score=21. No edema noted. +bm 11/20 and 11/22. Bilirubin improving, worsening LFTs and BP remains elevated.+IVF, thiamine, folic acid, toprol, cymbalta. Wound Type: None Current Nutrition Therapies: Adult diet Full liquid Current Oral Intake Average Meal Intake: 76-100% (pudding and jello) Average Supplements Intake: None Ordered Anthropometric Measures: Height: 185.4 cm (6' 1) Current Body Weight: 114 kg (252 lb) Weight Source: Stated Admission Body Weight: 114 kg (252 lb) Usual Body Weight: 122 kg (270 lb) (Per EMR --> 253# 11/06/22; 250# 06/25/23; 270# 08/10/23; 250# 10/16/23) % Weight Change (Calculated): -6.7 Dumont Body Weight (lbs) (Calculated): 184 lbs Dumont Body Weight (Kg) (Calculated): 84 kg % Dumont Body Weight (Calculated): 137 % BMI (kg/m2) (Calculated): 33.3 Weight Adjustment For: No Adjustment BMI Categories: Obese Class 1 (BMI 30.0-34.9) Nutrition Diagnosis: Moderate malnutrition, In context of social or environmental circumstances related to inadequate protein-energy intake as evidenced by mild loss of subcutaneous fat, poor intake prior to admission, mild muscle loss Altered GI function related to altered GI function as evidenced by lab values (EtOH induced pancreatitis) Nutrition Interventions: Nutrition Education/Counseling: Education not indicated Coordination of Nutrition Care: Continue to monitor while inpatient Plan of Care discussed with: patient Goals: Previous Goal Met: Progressing toward Goal(s) Goals: other (specify) Specify Other Goals: Tolerate PO without GI distress Nutrition Monitoring and Evaluation: Behavioral-Environmental Outcomes: None Identified Food/Nutrient Intake Outcomes: Food and Nutrient Intake Physical Signs/Symptoms Outcomes: Biochemical Data, Chewing or Swallowing, GI Status, Nausea or Vomiting, Weight, Skin, Nutrition Focused Physical Findings, Meal Time Behavior, Fluid Status or Edema Discharge Planning: Continue current diet, Continue Oral Nutrition Supplement Britney Lau RDN, LDN, Contact: *[phone] * Akbar Prajapati MD - 11/24/2023 11:14 AM EDT Hospitalist Progress Note 11/24/[id number]: Please page me ([phone]) for patient care issues. [phone]: Please page [facility] Hospitalist for any issues. Subjective: Admit Date: 11/17/2023 PCP: Tam Hughes DO Room#: B2-266/B2-266 B Interval History: Denies chest pain or sob. However he states he still having abdominal pain, it was worse than before. He said it is in the mid abdomen and spreading laterally on both sides. Also epigastric and moving to the right upper quadrant. He does look completely comfortable sitting up in chair. He denies any nausea, vomiting currently. No fevers or chills. Adult diet Full liquid @[email or web address]@ 24HR INTAKE/OUTPUT: Intake/Output Summary (Last 24 hours) at 11/24/2023 1114 Last data filed at 11/24/2023 0649 Gross per 24 hour Intake 1012.5 ml Output 3 ml Net 1009.5 ml Past Medical History: Past Medical History: Diagnosis Date Alcohol withdrawal syndrome without complication (HCC) 06/27/2022 Alcohol withdrawal with inpatient treatment, uncomplicated (HCC) 03/15/2022 GERD (gastroesophageal reflux disease) History of pancreatitis 01/07/2023 Hypertension Pancreatitis Seizures (HCC) SVT (supraventricular tachycardia) (HCC) Tourette syndrome LABS: CBC: Recent Labs 11/22/2334011/23/2341711/24/23 012 WBC 5.9 6.0 6.8 RBC 3.89* 4.07* 3.96* HGB 12.2* 12.5* 12.0* HCT 35.7* 37.4* 36.8* MCV 91.8 91.9 92.9 RDW 15.3* 15.7* 15.9* PLT 142 144 179 BMP: Recent Labs 11/22/2334011/23/2341711/24/23119 NA 132* 135 136 K 3.2* 3.4* 3.7 CL 102 104 106 CO2 23 24 23 BUN 8* 7* 3* CREATININE 0.47* 0.51* 0.51* GLUCOSE 118* 111* 113* CALCIUM 8.6 8.8 8.7 ANIONGAP 7 8 7 LIVER PROFILE: Recent Labs 11/22/2334011/23/2341711/24/23 012 AST 121* 141* 195* ALT 56* 74* 121* BILITOT 4.0* 3.8* 2.8* ALKPHOS 140* 205* 293* PROT 6.3 6.7 6.9 PT/INR: No results for input(s): PROTIME, INR in the last 72 hours. CARDIAC ENZYMES: No results for input(s): TROPONINI in the last 72 hours. Procalcitonin: No results found for: PROCAL COVID-19 PCR: No results for input(s): COVID19 in the last 72 hours. Objective: Vitals: BP (!) 163/97 Pulse 87 Temp 36.9 C (98.4 F) (Temporal) Resp 20 Ht 6' 1 (1.854 m) Wt 252 lb (114 kg) SpO2 98% BMI 33.25 kg/m Pulse Ox: SpO2 Av.8 % Min: 96 % Max: 98 % Supplemental O2: O2 Flow Rate (L/min): 2 L/min General appearance: No apparent distress, appears stated age, HEENT: Eyes: No scleral icterus Oral: Tongue is semi-moist Cardiovascular: S1/S2 heard, RRR Respiratory: Clear to auscultation bilaterally Abdomen: Soft, with some pain to palp of epigastric/mid abdomen and RUQ, non- distended bowel soundspositive Musculoskeletal: No obvious deformities seen Skin: No visible rashes or lesions. Medications: sodium chloride, 250 mL/hr, Last Rate: Stopped (11/24/23 0604) amLODIPine, 10 mg, Oral, Daily cloNIDine, 1 patch, TransDERmal, Weekly DULoxetine, 30 mg, Oral, Daily folic acid, 1 mg, Oral, Daily metoprolol succinate XL, 100 mg, Oral, Daily pantoprazole, 40 mg, Oral, qAM AC senna-docusate sodium, 2 tablet, Oral, BID sodium phosphate, 1 enema, Rectal, Once thiamine, 100 mg, Oral, Daily Assessment Acute, acute on chronic, unstable/uncontrolled chronic problems/diagnoses: # Acute recurrent alcoholic pancreatitis # Severe alcohol use disorder - ADM consulted, last drink 11/16, 11/17/23- 7817 - positive for alcohol 0.027 # Elevated LFTs with hyperbilirubinemia - LFTs continue to worsen. Reached out to GI Dr. Richardson to follow up today and evaluate. Meanwhile, reviewed CT on 11/21. There was possible sludge within the gallbladder lumen. # Small bilateral pulmonary effusions - Echo was normal. # Bibasilar atelectasis - likely from pleural effusion along with not taking deep breaths due to pain from pancreatitis. Continue incentive spirometer # Uncontrolled Hypertension - continue on Clonidine and metoprolol. PRN Hydralazine for SBP >160. 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 Richardson to reevaluate due to rising LFTs -also consult surgery to evaluate given persistent abdominal pain with worsening LFTs and CT on 11/21 showing possible sludge within the gallbladder lumen. -check RUQ US -Decrease IVF to 125 ml/hr -also discussed case with addiction med this am. Per Dr. Zuñiga,from an addiction withdrawal standpoint, he states that patient is clear -check daily labs No emergency contact information on file. Akbar Prajapati MD Division of Hospitalist Medicine Inpatient Medical Services/[facility] [place] PAGER: Epic chat * Dov Vanegas MD - 11/24/2023 10:42 AM EDT Images from the original note were not included. ADDICTION MEDICINE PROGRESS NOTE Patient: Roro Valdivia __ Problem List: Principal Problem: Acute pancreatitis without infection or necrosis Active Problems: Moderate malnutrition (CMS/HCC) (HCC) SUBJECTIVE Chief Complaint Patient presents with Abdominal Pain Alcohol Problem Pt seen and examined. Reports that his pain increased to levels I haven't felt before overnight. Notes that his current pain medication regimen is not really helping. Pt is resting comfortably inrecliner with IVF. Pt reports that he would like to discharge but can't until we figure out what is going on with my pain. If I leave now I know I will end up back in the ER because of the pain and I refuse to go back to drinking. Pt denies any other symptoms outside of abd pain which he reports is in the epigastrium and radiates into his back. He is eating, drinking and passing stool and making urine. Pt denies any headache, changes in vision, cough, congestion, rhinorrhea, sore throat, N/V, diarrhea, constipation, urinary symptoms, CP or SOB. No SI/HI or AVH. Interim History The Pt, Mr. Valdivia, is a 38 y/o M w/ a PMHx of Severe AUD, Severe OUD, Cocaine use disorder, Recurrent pancreatitis, Panic disorder, HTN and depression. Pt was admitted into [facility] for pancretitis andacute alcohol withdrawal. ADM consulted to assist in management of chemical detox. Review of Systems A 14 system ROS was collected and is negative unless otherwise noted above. OBJECTIVE Vitals Vitals: 11/23/23 2300 11/24/23 0424 11/24/23 0715 11/24/23 1333 BP: 158/92 148/86 (!) 163/97 BP Location: Patient Position: Pulse: 68 78 87 Resp: 20 Temp: 36.9 C (98.4 F) TempSrc: Temporal SpO2: 98% Weight: Height: 1.854 m (6' 1) Physical Exam Constitutional: Appearance: He is obese. HENT: Head: Normocephalic and atraumatic. Nose: Nose normal. Mouth/Throat: Mouth: Mucous membranes are moist. Eyes: Extraocular Movements: Extraocular movements intact. Pupils: Pupils are equal, round, and reactive to light. Cardiovascular: Rate and Rhythm: Normal rate. Pulses: Normal pulses. Pulmonary: Effort: Pulmonary effort is normal. No respiratory distress. Abdominal: General: Bowel sounds are normal. Palpations: Abdomen is soft. Musculoskeletal: General: No deformity. Normal range of motion. Cervical back: Normal range of motion and neck supple. Skin: General: Skin is warm. Coloration: Skin is not jaundiced. Neurological: General: No focal deficit present. Mental Status: He is alert and oriented to person, place, and time. Psychiatric: Behavior: Behavior normal. Thought Content: Thought content normal. Medications Home Meds Current Outpatient Medications Medication Instructions cloNIDine (CATAPRES) 0.1 mg, Oral, 3 times daily DULoxetine (CYMBALTA) 30 mg, Oral, Daily, Do not crush or chew. hydrOXYzine HCl (ATARAX) 50 mg, Oral, 2 times daily PRN melatonin 5 mg, Oral, Nightly PRN metoprolol succinate XL (TOPROL-XL) 50 mg, Oral, Daily, Do not crush or chew. omeprazole (PRILOSEC) 20 mg, Oral, Daily before breakfast, Do not crush or chew. risperiDONE (RISPERDAL) 1 mg, Oral, 2 times daily Scheduled Inpatient Meds amLODIPine, 10 mg, Oral, Daily cloNIDine, 1 patch, TransDERmal, Weekly DULoxetine, 30 mg, Oral, Daily folic acid, 1 mg, Oral, Daily metoprolol succinate XL, 100 mg, Oral, Daily pantoprazole, 40 mg, Oral, qAM AC senna-docusate sodium, 2 tablet, Oral, BID sodium phosphate, 1 enema, Rectal, Once thiamine, 100 mg, Oral, Daily PRN Inpatient Meds PRN medications: bisacodyl, cloNIDine, dicyclomine, doxepin, hydrALAZINE, HYDROmorphone, hydrOXYzine pamoate, iopamidol, levalbuterol, naloxone, ondansetron ODT OR ondansetron, oxyCODONE, perflutren protein A microsphere (Optison) 3 mL in sodium chloride (PF) 0.9 % 10 mL IV syringe, polyethylene glycol (PEG) 3350, prochlorperazine, simethicone, traZODone Continuous Inpatient Infusions sodium chloride, 125 mL/hr, Last Rate: 125 mL/hr (11/24/23 1310) Recent Imaging CT abdomen pelvis w contrast Result Date: 11/18/2023 Patient Name: RORO VALDIVIA : 1985 Date/Time: 11/18/2023 02:04 Procedure: CT ABDOMEN PELVIS W CONTRAST Ordering Provider: JETT J Reason For Exam: Pancreatitis, acute, severe HISTORY: Pancreatitis After intravenous contrast sections performed through the abdomen and pelvis. Dose reduction was performed with automated exposure control. FINDINGS: 1. Changes of severe acute pancreatitis with mildly enlarged pancreas with extensive peripancreatic fluid extending into the anterior pararenal spaces and right upper quadrant (inferior to gallbladder and liver). 2. Moderate fatty infiltration liver with nondilated biliary system and no calcified gallstones identified with probable prior appendectomy. Report Dictated on Electronically Signed By: Gagan Rich MD Electronically Signed Date/Time: 11/18/2023 2:14 AM EDT Labs CBC: Recent Labs 11/22/2334011/23/2341711/24/23119 WBC 5.9 6.0 6.8 HGB 12.2* 12.5* 12.0* PLT 142 144 179 MCV 91.8 91.9 92.9 RDW 15.3* 15.7* 15.9* BMP: Recent Labs 11/22/2334011/23/2341711/24/23119 NA 132* 135 136 K 3.2* 3.4* 3.7 CL 102 104 106 CO2 23 24 23 BUN 8* 7* 3* CREATININE 0.47* 0.51* 0.51* CALCIUM 8.6 8.8 8.7 MG 2.2 2.4* -- Liver Profile: Recent Labs 11/22/2334011/23/2341711/24/23 012 AST 121* 141* 195* ALT 56* 74* 121* BILITOT 4.0* 3.8* 2.8* ALKPHOS 140* 205* 293* PROT 6.3 6.7 6.9 LIPASE -- 183 -- Glucose: Recent Labs 11/22/2334011/23/2341711/24/23 0120 GLUCOSE 118* 111* 113* Lactic Acid: No lab exists for component: LACTA Cardiac Injury Profile: No results for input(s): CKTOTAL, CKMB, TROPONINI in the last 72 hours. Last 24 Hours: Recent Results (from the past 24 hour(s)) CBC auto differential Collection Time: 11/24/23 1:20 AM Result Value Ref Range Auto WBC 6.8 3.6 - 10.7 10*3/uL RBC 3.96 (L) 4.40 - 5.90 10*6/uL Hemoglobin 12.0 (L) 13.0 - 18.0 g/dL Hematocrit 36.8 (L) 40.0 - 52.0 % MCV 92.9 77.0 - 99.0 fL MCH 30.3 26.0 - 34.0 pg MCHC 32.6 30.5 - 36.0 % RDW 15.9 (H) 11.5 - 15.0 % Platelets 179 140 - 440 10*3/uL MPV 9.6 9.0 - 12.7 fL nRBC 0.0 0.0 - 2.0 /100 WBCs Comprehensive metabolic panel Collection Time: 11/24/23 1:20 AM Result Value Ref Range SODIUM 136 135 - 145 mmol/L POTASSIUM 3.7 3.5 - 5.1 mmol/L CHLORIDE 106 98 - 107 mmol/L CARBON DIOXIDE 23 22 - 30 mmol/L ANION GAP 7 3 - 13 mmol/L UREA NITROGEN 3 (L) 9 - 20 mg/dL CREATININE 0.51 (L) 0.66 - 1.25 mg/dL GLUCOSE 113 (H) 70 - 100 mg/dL CALCIUM 8.7 8.4 - 10.4 mg/dL AST (SGOT) 195 (H) 15 - 46 U/L ALT 121 (H) 0 - 49 U/L ALKALINE PHOSPHATASE 293 (H) 38 - 126 U/L ALBUMIN 3.5 3.5 - 5.0 g/dL BILIRUBIN, TOTAL 2.8 (H) 0.2 - 1.3 mg/dL TOTAL PROTEIN 6.9 6.3 - 8.2 g/dL eGFR >90.0 >60.0 mL/min/1.73m*2 Man Differential Collection Time: 11/24/23 1:20 AM Result Value Ref Range Adjusted WBC 6.8 3.6 - 10.7 10*3/uL Neutrophils % 68 38 - 82 % Bands % 2 (H) <=0 % Lymphocytes % 19 15 - 45 % Monocytes % 7 5 - 13 % Eosinophils % 2 0 - 6 % Myelocytes % 2 (H) <=0 % Absolute Neutrophil Count 4.8 1.8 - 7.0 10*3/uL Segs Absolute 4.8 1.8 - 7.5 10*3/uL Bands Absolute 0.1 (H) <=0.0 10*3/uL Lymphocytes Absolute 1.3 1.0 - 4.3 10*3/uL Monocytes Absolute 0.5 0.0 - 0.9 10*3/uL Eosinophils Absolute 0.1 0.0 - 0.5 10*3/uL Myelocytes Absolute 0.1 (H) <=0.0 10*3/uL Anisocytosis Slight (A) (none) Poikilocytes Slight (A) (none) Polychromasia Rare (A) (none) Target Cells Slight (A) (none) WBC Morphology Normal PLT Morphology Normal Total Counted 100 Neutrophils Manual 68 Lymphocytes Manual 19 Monocytes Manual 7 Eosinophils Manual 2 (H) 0 - 1 Bands Manual 2 Myelocytes Manual 2 Differential Method Manual differential performed ASSESSMENT & PLAN Severe alcohol use disorder ETOH withdrawal - resolved Counseled patient on biopsychosocial consequences of substance use. Discussed aftercare including AA/NA, 1:1 counseling, IOP and residential treatment Discussed MAT including Acamprosate, Disulfiram, Naltrexone and Vivitrol Follow up plan for addiction management discussed with patient: Pt would like to continue with his current ADM provider (Dr. Escobar) Pt reports that he is interested in discharge to [facility]. He has attended [facility] in the past and notes that he was successful while there in maintaining his sobriety. Pt reports I was sober for 100 days when I was there and that's the longest I've been sober since I started drinking. PRN medications: Bentyl 20mg Q8H PRN for stomach cramps Doxepine 10mg PO at bedtime 1st line for sleep Vistaril 50mg Q6H PRN for anxiety Trazodone 50mg PRN at bedtime for sleep Abdominal pain Constipation? Transaminitis Unclear pathology AST / ALT up trending Pt reports significant pain overnight. Pt reports he has had a couple of Bowel movements since yesterday. PLAN: PPI 40mg PO Daily Bentyl 20mg PO Q8H PRN for abd cramps Dilaudid 1mg IV Q3H PRN Senokot 2 tabs BID Bisacodyl suppository 10mg PRN Daily HTN BP remains elevated Could be 2/2 pain but again unclear etiology - unlikely related to withdrawal Metop Succinate 100mg PO Daily Norvasc 10mg PO Daily Continue to monitor No PRN hydralazine in > 24 hours Disposition: Discharge anticipated in ? days. This is pending: Withdrawal symptoms - resolved Medical stabilization - abd pain / elevated LFTs, GI consulted, Gen Surg consulted. Labs/tests/tasks to review: N/A. Nurse Ob to coordinate care with: N/A. ADM to to follow. A total of 38 minutes were spent reviewing the patient's records, evaluating the patient, entering orders, coordinating care with the treatment team, and creating this note. I reviewed the patient's medical record, and reviewed test results. I educated and then counseled the patient on any substance use disorder or chemical dependency related issues. This included a faceto face evaluation and physical examination, and coordinating care on a substance use disorder treatment plan as well as documenting clinical information on the day of visit. * Dov Vanegas MD - 11/23/2023 9:52 AM EDT Images from the original note were not included. ADDICTION MEDICINE PROGRESS NOTE Patient: Roro Valdivia __ Problem List: Principal Problem: Acute pancreatitis without infection or necrosis Active Problems: Moderate malnutrition (CMS/HCC) (HCC) SUBJECTIVE Chief Complaint Patient presents with Abdominal Pain Alcohol Problem Seen and examined. Reports that his pain today is better by comparison to yesterday. He was sleeping when I entered the room snoring loudly. Pt states that he is feeling better but does not think he should go home as his pain is still present. Pt reported that he was reading his abd CT result on Qgiv and notes my spleen is enlarged and it wasn't enlarged on the first CT, could this be my spleen?. Pt denies any other concerns outside of his abd pain. No SI/HI or AVH reported. Interim History The Pt, Mr. Valdivia, is a 38 y/o M w/ a PMHx of Severe AUD, Severe OUD, Cocaine use disorder, Recurrent pancreatitis, Panic disorder, HTN and depression. Pt was admitted into [facility] for pancretitis andacute alcohol withdrawal. ADM consulted to assist in management of chemical detox. Review of Systems A 14 system ROS was collected and is negative unless otherwise noted above. OBJECTIVE Vitals Vitals: 11/23/23 0300 11/23/23 0817 11/23/23 1147 11/23/23 1944 BP: 150/85 (!) 166/105 147/95 (!) 161/98 BP Location: Left arm Right arm Patient Position: Sitting Sitting Pulse: 82 85 68 70 Resp: 18 18 20 18 Temp: 37.6 C (99.7 F) 36.8 C (98.3 F) 36.3 C (97.4 F) 36.7 C (98 F) TempSrc: Temporal Temporal Temporal Temporal SpO2: 95% 94% 96% 97% Weight: Height: Physical Exam Constitutional: Appearance: He is obese. HENT: Head: Normocephalic and atraumatic. Nose: Nose normal. Mouth/Throat: Mouth: Mucous membranes are moist. Eyes: Extraocular Movements: Extraocular movements intact. Pupils: Pupils are equal, round, and reactive to light. Cardiovascular: Rate and Rhythm: Normal rate. Pulses: Normal pulses. Pulmonary: Effort: Pulmonary effort is normal. No respiratory distress. Abdominal: Comments: Exam deferred today Musculoskeletal: General: No deformity. Normal range of motion. Cervical back: Normal range of motion and neck supple. Skin: General: Skin is warm. Coloration: Skin is not jaundiced. Neurological: General: No focal deficit present. Mental Status: He is alert and oriented to person, place, and time. Psychiatric: Behavior: Behavior normal. Thought Content: Thought content normal. Medications Home Meds Current Outpatient Medications Medication Instructions cloNIDine (CATAPRES) 0.1 mg, Oral, 3 times daily DULoxetine (CYMBALTA) 30 mg, Oral, Daily, Do not crush or chew. hydrOXYzine HCl (ATARAX) 50 mg, Oral, 2 times daily PRN melatonin 5 mg, Oral, Nightly PRN metoprolol succinate XL (TOPROL-XL) 50 mg, Oral, Daily, Do not crush or chew. omeprazole (PRILOSEC) 20 mg, Oral, Daily before breakfast, Do not crush or chew. risperiDONE (RISPERDAL) 1 mg, Oral, 2 times daily Scheduled Inpatient Meds amLODIPine, 10 mg, Oral, Daily cloNIDine, 1 patch, TransDERmal, Weekly DULoxetine, 30 mg, Oral, Daily folic acid, 1 mg, Oral, Daily metoprolol succinate XL, 100 mg, Oral, Daily pantoprazole, 40 mg, Oral, qAM AC senna-docusate sodium, 2 tablet, Oral, BID sodium phosphate, 1 enema, Rectal, Once thiamine, 100 mg, Oral, Daily PRN Inpatient Meds PRN medications: bisacodyl, cloNIDine, dicyclomine, doxepin, hydrALAZINE, HYDROmorphone, hydrOXYzine pamoate, iopamidol, levalbuterol, naloxone, ondansetron ODT OR ondansetron, oxyCODONE, perflutren protein A microsphere (Optison) 3 mL in sodium chloride (PF) 0.9 % 10 mL IV syringe, polyethylene glycol (PEG) 3350, prochlorperazine, simethicone, traZODone Continuous Inpatient Infusions sodium chloride, 250 mL/hr, Last Rate: 250 mL/hr (11/23/23 1249) Recent Imaging CT abdomen pelvis w contrast Result Date: 11/18/2023 [facility] 1985 [id number] Date/Time: 11/18/2023 02:04 Procedure: CT ABDOMEN PELVIS W CONTRAST Ordering Provider: JETT J Reason For Exam: Pancreatitis, acute, severe HISTORY: Pancreatitis After intravenous contrast sections performed through the abdomen and pelvis. Dose reduction was performed with automated exposure control. FINDINGS: 1. Changes of severe acute pancreatitis with mildly enlarged pancreas with extensive peripancreatic fluid extending into the anterior pararenal spaces and right upper quadrant (inferior to gallbladder and liver). 2. Moderate fatty infiltration liver with nondilated biliary system and no calcified gallstones identified with probable prior appendectomy. Report Dictated on Electronically Signed By: Gagan Rich MD Electronically Signed Date/Time: 11/18/2023 2:14 AM EDT Labs CBC: Recent Labs 11/21/23 0312 11/22/23 0341 11/23/23 0418 WBC 6.5 5.9 6.0 HGB 12.4* 12.2* 12.5* PLT 109* 142 144 MCV 92.8 91.8 91.9 RDW 15.3* 15.3* 15.7* BMP: Recent Labs 11/21/2331111/22/2334011/23/23417 NA 134* 132* 135 K 3.2* 3.2* 3.4* CL 103 102 104 CO2 BUN 6* 8* 7* CREATININE 0.44* 0.47* 0.51* CALCIUM 8.6 8.6 8.8 MG 1.9 2.2 2.4* Liver Profile: Recent Labs 11/21/2331111/22/2334011/23/23417 AST 69* 121* 141* ALT 47 56* 74* BILITOT 3.3* 4.0* 3.8* ALKPHOS 83 140* 205* PROT 6.2* 6.3 6.7 LIPASE -- -- 183 Glucose: Recent Labs 11/21/2331111/22/2334011/23/23417 GLUCOSE 95 118* 111* Lactic Acid: No lab exists for component: LACTA Cardiac Injury Profile: No results for input(s): CKTOTAL, CKMB, TROPONINI in the last 72 hours. Last 24 Hours: Recent Results (from the past 24 hour(s)) Hepatitis panel, acute Collection Time: 11/23/23 4:18 AM Result Value Ref Range HEPATITIS B VIRUS SURFACE AG Not Detected Not Detected HEPATITIS A VIRUS AB, IGM Not Detected Not Detected HEPATITIS B VIRUS CORE IGM AB Not Detected Not Detected HEPATITIS C VIRUS AB Not Detected Not Detected CBC auto differential Collection Time: 11/23/23 4:18 AM Result Value Ref Range Auto WBC 6.0 3.6 - 10.7 10*3/uL RBC 4.07 (L) 4.40 - 5.90 10*6/uL Hemoglobin 12.5 (L) 13.0 - 18.0 g/dL Hematocrit 37.4 (L) 40.0 - 52.0 % MCV 91.9 77.0 - 99.0 fL MCH 30.7 26.0 - 34.0 pg MCHC 33.4 30.5 - 36.0 % RDW 15.7 (H) 11.5 - 15.0 % Platelets 144 140 - 440 10*3/uL MPV 10.0 9.0 - 12.7 fL Comprehensive metabolic panel Collection Time: 11/23/23 4:18 AM Result Value Ref Range SODIUM 135 135 - 145 mmol/L POTASSIUM 3.4 (L) 3.5 - 5.1 mmol/L CHLORIDE 104 98 - 107 mmol/L CARBON DIOXIDE 24 22 - 30 mmol/L ANION GAP 8 3 - 13 mmol/L UREA NITROGEN 7 (L) 9 - 20 mg/dL CREATININE 0.51 (L) 0.66 - 1.25 mg/dL GLUCOSE 111 (H) 70 - 100 mg/dL CALCIUM 8.8 8.4 - 10.4 mg/dL AST (SGOT) 141 (H) 15 - 46 U/L ALT 74 (H) 0 - 49 U/L ALKALINE PHOSPHATASE 205 (H) 38 - 126 U/L ALBUMIN 3.4 (L) 3.5 - 5.0 g/dL BILIRUBIN, TOTAL 3.8 (H) 0.2 - 1.3 mg/dL TOTAL PROTEIN 6.7 6.3 - 8.2 g/dL eGFR >90.0 >60.0 mL/min/1.73m*2 MANUAL DIFFERENTIAL (CELLAVISION) Collection Time: 11/23/23 4:18 AM Result Value Ref Range RBC Morphology abnormal Poikilocytes Rare (A) (none) Hypochromia Slight (A) (none) Polychromasia Rare (A) (none) Target Cells Rare (A) (none) Stomatocytes Slight (A) (none) Neutrophils % 58 38 - 82 % Bands % 1 (H) <=0 % Lymphocytes % 20 15 - 45 % Monocytes % 14 (H) 5 - 13 % Eosinophils % 1 0 - 6 % Metamyelocytes % 3 (H) <=0 % Myelocytes % 3 (H) <=0 % Absolute Neutrophil Count 3.5 1.8 - 7.5 10*3/uL Bands Absolute 0.1 (H) <=0.0 10*3/uL Lymphocytes Absolute 1.2 1.0 - 4.3 10*3/uL Monocytes Absolute 0.8 0.0 - 0.9 10*3/uL Eosinophils Absolute 0.1 0.0 - 0.5 10*3/uL Metamyelocytes Absolute 0.2 (H) <=0.0 10*3/uL Myelocytes Absolute 0.2 (H) <=0.0 10*3/uL Neutrophils Manual 58 Lymphocytes Manual 20 Monocytes Manual 14 Eosinophils Manual 1 0 - 1 Basophils Manual Bands Manual 1 Metamyelocytes Manual 3 Myelocytes Manual 3 Promyelocytes Manual Blasts Manual Atypical Lymphocytes Manual Unclassified Cells, Manual Magnesium Collection Time: 11/23/23 4:18 AM Result Value Ref Range MAGNESIUM 2.4 (H) 1.6 - 2.3 mg/dL Lipase Collection Time: 11/23/23 4:18 AM Result Value Ref Range LIPASE 183 23 - 300 U/L ASSESSMENT & PLAN Severe alcohol use disorder ETOH withdrawal - resolved Counseled patient on biopsychosocial consequences of substance use. Discussed aftercare including AA/NA, 1:1 counseling, IOP and residential treatment Discussed MAT including Acamprosate, Disulfiram, Naltrexone and Vivitrol Follow up plan for addiction management discussed with patient: Pt would like to continue with his current ADM provider (Dr. Escobar) Pt would does not want to continue Suboxone. PRN medications: Tylenol 500mg Q8H for pain Toradol 15mg IV Q6H PRN for pain Bentyl 20mg Q8H PRN for stomach cramps Doxepine 10mg PO at bedtime 1st line for sleep Vistaril 50mg Q6H PRN for anxiety Trazodone 50mg PRN at bedtime for sleep Abdominal pain Constipation? Transaminitis Unclear pathology AST / ALT up trending Pt reports pain has improved by comparison to yesterday. Only noticeable difference Pt reports he hasn't had BM 'in a few days' PLAN: PPI 40mg PO Daily Bentyl 20mg PO Q8H PRN for abd cramps Dilaudid 1mg IV Q3H PRN Toradol discontinued Tylenol discontinued due to uptrending LFTs Senokot 2 tabs BID Bisacodyl suppository 10mg PRN Daily Fleet enema x1 HTN BP remains elevated Could be 2/2 pain but again unclear etiology - unlikely related to withdrawal Metop Succinate 100mg PO Daily Norvasc 10mg PO Daily Continue to monitor No PRN hydralazine in > 24 hours Disposition: Discharge anticipated in ? days. This is pending: Withdrawal symptoms - resolved Medical stabilization - abd pain / Constipation / elevated LFTs Labs/tests/tasks to review: N/A. Nurse Ob to coordinate care with: N/A. A total of 55 minutes were spent reviewing the patient's records, evaluating the patient, entering orders, coordinating care with the treatment team, and creating this note. I reviewed the patient's medical record, and reviewed test results. I educated and then counseled the patient on any substance use disorder or chemical dependency related issues. This included a faceto face evaluation and physical examination, and coordinating care on a substance use disorder treatment plan as well as documenting clinical information on the day of visit. * Linda Kolher MD - 11/23/2023 9:44 AM EDT Hospitalist Progress Note 11/23/2023 Subjective: Admit Date: 11/17/2023 PCP: Tam Hughes, Room#: [id number] B BRIEF HOSPITAL COURSE: Roro is a 38 year old male, admitted for acoholic pancreatitis on 11/16, with his last drink being that evening. In ED, had increased epigastric pain, non-bloody emesis, no melena or GI bleed. He has been admitted for this in the past. Treated with fluid and on mIVF with clear liquids. He complainedof chest tightness that worsened on movement, CXR ordered showed bibasilar atelectasis, shortness of breath worsened and CTA chest obtained due to associated tachycardia and chest pain - no PE identified and bilateral small pleural effusions which were treated with IV lasix. Patient continued to have sharp, stabbing abdomen pain repeat CT abdomen showing improvement on pancreas, but has some edema in abdomen wall, and splenomegaly. He complains of being constipated with minimal output with suppository, enema ordered for patient. Interval History: Ct abdomen and pelvis - shows improving of pancreatitis, some edema in abdomen wall. States that yesterday was the worse day he ever had for pain and discomfort. He still has not had a bowel movement. Does not want to leave until his pain is resolved. Concerned about his enlarge spleen and liver dysfunction. Educated on the importance of not returning to alcohol abuse. ADM to discuss with patientconcern about patient states he is here to make himself numb. He would not expand to write about that. Hepatitis panel negative. NPO diet with enteral medications 24HR INTAKE/OUTPUT: Intake/Output Summary (Last 24 hours) at 11/23/2023 0944 Last data filed at 11/23/2023 0647 Gross per 24 hour Intake 2945.83 ml Output 1 ml Net 2944.83 ml Past Medical History: Past Medical History: Diagnosis Date Alcohol withdrawal syndrome without complication (HCC) 06/27/2022 Alcohol withdrawal with inpatient treatment, uncomplicated (HCC) 03/15/2022 GERD (gastroesophageal reflux disease) History of pancreatitis 01/07/2023 Hypertension Pancreatitis Seizures (HCC) SVT (supraventricular tachycardia) (HCC) Tourette syndrome LABS: CBC: Recent Labs 11/21/2331111/22/2334011/23/23417 WBC 6.5 5.9 6.0 RBC 4.04* 3.89* 4.07* HGB 12.4* 12.2* 12.5* HCT 37.5* 35.7* 37.4* MCV 92.8 91.8 91.9 RDW 15.3* 15.3* 15.7* PLT 109* 142 144 BMP: Recent Labs 11/21/2331111/22/2334011/23/23417 NA 134* 132* 135 K 3.2* 3.2* 3.4* CL 103 102 104 CO2 23 23 24 BUN 6* 8* 7* CREATININE 0.44* 0.47* 0.51* GLUCOSE 95 118* 111* CALCIUM 8.6 8.6 8.8 ANIONGAP 8 7 8 LIVER PROFILE: Recent Labs 11/21/2331111/22/2334011/23/23417 AST 69* 121* 141* ALT 47 56* 74* BILITOT 3.3* 4.0* 3.8* ALKPHOS 83 140* 205* PROT 6.2* 6.3 6.7 PT/INR: No results for input(s): PROTIME, INR in the last 72 hours. CARDIAC ENZYMES: No results for input(s): TROPONINI in the last 72 hours. Procalcitonin: No results found for: PROCAL COVID-19 PCR: No results for input(s): COVID19 in the last 72 hours. Objective: Vitals: BP (!) 166/105 Pulse 85 Temp 36.8 C (98.3 F) (Temporal) Resp 18 Ht 6' 1 (1.854 m) Wt 252 lb (114 kg) SpO2 94% BMI 33.25 kg/m Pulse Ox: SpO2 Av % Min: 94 % Max: 96 % Supplemental O2: O2 Flow Rate (L/min): 2 L/min Physical Exam Vitals and nursing note reviewed. Constitutional: Appearance: He is obese. He is ill-appearing. HENT: Head: Normocephalic. Mouth/Throat: Mouth: Mucous membranes are dry. Eyes: General: Right eye: No discharge. Left eye: No discharge. Conjunctiva/sclera: Conjunctivae normal. Cardiovascular: Rate and Rhythm: Normal rate and regular rhythm. Heart sounds: No murmur heard. Pulmonary: Effort: No respiratory distress. Breath sounds: Rales present. No wheezing. Comments: Slight crackles to the base Abdominal: General: There is no distension. Tenderness: There is abdominal tenderness. There is no right CVA tenderness, left CVA tenderness orguarding. Comments: Epigastric tenderness Musculoskeletal: Right lower leg: Edema present. Left lower leg: No edema. Skin: General: Skin is warm. Capillary Refill: Capillary refill takes less than 2 seconds. Findings: No bruising. Neurological: Mental Status: He is alert and oriented to person, place, and time. Medications: Scheduled PRN acetaminophen, 500 mg, Oral, q8h amLODIPine, 10 mg, Oral, Daily cloNIDine, 1 patch, TransDERmal, Weekly DULoxetine, 30 mg, Oral, Daily folic acid, 1 mg, Oral, Daily metoprolol succinate XL, 100 mg, Oral, Daily pantoprazole, 40 mg, Oral, qAM AC senna-docusate sodium, 2 tablet, Oral, BID thiamine, 100 mg, Oral, Daily PRN medications: bisacodyl, cloNIDine, dicyclomine, doxepin, hydrALAZINE, HYDROmorphone, hydrOXYzine pamoate, iopamidol, ketorolac, levalbuterol, naloxone, ondansetron ODT OR ondansetron, oxyCODONE, perflutren protein A microsphere (Optison) 3 mL in sodium chloride (PF) 0.9 % 10 mL IV syringe, p olyethylene glycol (PEG) 3350, prochlorperazine, simethicone, traZODone Continuous sodium chloride, 250 mL/hr, Last Rate: 250 mL/hr (11/23/23 0647) Assessment Data: (CAT1) Reviewed 3 or more notes from different specialty or health system (each=1). (CAT1) Reviewed 3 or more labs/studies ordered by another provider not previously counted (each=1, panels count as 1). (LOW: 2x CAT1 or independent historian MOD: 3x CAT1 or 1x CAT3 EXTENSIVE: 3x CAT1 and 1x CAT3) Acute, acute on chronic, unstable/uncontrolled chronic problems/diagnoses: Abdomen pain secondary to pancreatitis, splenomegaly and ventral abdomen edema. Alcohol use disorder, severe ADM consulted, last drink 11/16, 11/17/23- 0359 - positive for alcohol 0.027 History of alcohol withdrawal seizures. Trend lipase Regular diet Chest tightness secondary to bilateral pulmonary effusions Obtain echo, cardiomegaly present - Echo showed right ventricle and left atrium dilation, EF 60%, CXR showed bibasilar atelectasis Encourage him to use incentive spirometer at bedside - educated on how to use it. 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 Given hypertriglyceridemia and continual alcohol use - will recommend diet changes. - 11/19- VS reviewed, - tachycardic and hypertensive - increased metoprolol to 100 mg, added amlodipine to daily meds, monitor for increased seizures today - given 48 hours out of withdrawal, advancediet to regular, awaiting daily labs, encouraged to use IS as he has atelectasis on imaging. - 11/20- VS, CT reviewed - will give lasix, potassium and order echo. Educated again on IC use. TB rising today, but LFTs trending downwards, If worsening shortness of breath will consider thoracentesis. - - VS, labs - LFTs trending upwards, Continues to be hypertensive - will treat prn, replenish potassium, continues to be hyponatremic - obtain urine samples if it drops below one 130, AST 121, and ALT 56, with increase of TB, continue Xopenex, will not make any further adjustments, added oxycodone - will alternate between IV and oral, - 11/22- Pain out of control previous evening, CT abdomen obtained showing continual splenomegly, and some edema to abdomen wall, AST and ALT continue to rise, constipated - added fleet enema to regimen, potassium replenished. Appreciated GI recommendations due to prolonged course of pain - am labs, replace lytes prn - PT/OT/CM/SW - delirium precautions: increase activity and limit nighttime disturbances - DVT prophylaxis: encourage ambulation Complexity: Chronic illness with severe exacerbation, progression, or side effect of tx (HIGH). Risk: Admission to hospital-level care was considered or occurred (HIGH). Advance Directive: Full Code Anticipated Discharge - Date - - Location - home - Pending the following - improvement of pancreatitis, pain resolution Total time spent (which include face to face and non face to face encounters) : 46 minutes Toxic drug monitoring/narrow therapeutic index drug monitoring : # Drug name : hydralazine # Route administered : IV # Method of monitoring : monitor BP - avoid drop of BP, on telemetry No emergency contact information on file. Linda Kohlre MD Division of Hospitalist Medicine [facility] * Linda Kohler MD - 11/22/2023 9:06 AM EDT Hospitalist Progress Note 11/22/2023 Subjective: Admit Date: 11/17/2023 PCP: Tam Hughes, DO Room#: [id number] B BRIEF HOSPITAL COURSE: Roro is a 38 year old male, admitted for acoholic pancreatitis on 11/16, with his last drink being that evening. In ED, had increased epigastric pain, non-bloody emesis, no melena or GI bleed. He has been admitted for this in the past. Treated with fluid and on mIVF with clear liquids. He complainedof chest tightness that worsened on movement, CXR ordered Interval History: LFTs worsening with increased hyperbilirubinemia. HE continues to have epigastric discomfort, he states he has not had a bowel movement since he got here - described as tight and twisting. Discussed alternating his IV and oral medications to monitor Bowel regimen will be ordered. Adult diet Regular 24HR INTAKE/OUTPUT: Intake/Output Summary (Last 24 hours) at 11/22/2023 0907 Last data filed at 11/22/2023 0227 Gross per 24 hour Intake 350 ml Output 2 ml Net 348 ml Past Medical History: Past Medical History: Diagnosis Date Alcohol withdrawal syndrome without complication (HCC) 06/27/2022 Alcohol withdrawal with inpatient treatment, uncomplicated (HCC) 03/15/2022 GERD (gastroesophageal reflux disease) History of pancreatitis 01/07/2023 Hypertension Pancreatitis Seizures (HCC) SVT (supraventricular tachycardia) ([facility]) Tourette syndrome LABS: CBC: Recent Labs 11/20/23 0955 11/21/2331111/22/23 034 WBC 6.6 6.5 5.9 RBC 4.08* 4.04* 3.89* HGB 12.8* 12.4* 12.2* HCT 37.7* 37.5* 35.7* MCV 92.4 92.8 91.8 RDW 15.1* 15.3* 15.3* PLT 77* 109* 142 BMP: Recent Labs 11/19/23 1436 11/21/2331111/22/23 034 NA 131* 134* 132* K 4.0 3.2* 3.2* CL 105 103 102 CO2 17* 23 23 BUN 6* 6* 8* CREATININE 0.51* 0.44* 0.47* GLUCOSE 110* 95 118* CALCIUM 8.2* 8.6 8.6 ANIONGAP 10 8 7 LIVER PROFILE: Recent Labs 11/19/23 1436 11/21/23 0312 11/22/23 0341 AST 68* 69* 121* ALT 55* 47 56* BILITOT 3.1* 3.3* 4.0* ALKPHOS 74 83 140* PROT 6.1* 6.2* 6.3 PT/INR: No results for input(s): PROTIME, INR in the last 72 hours. CARDIAC ENZYMES: No results for input(s): TROPONINI in the last 72 hours. Procalcitonin: No results found for: PROCAL COVID-19 PCR: No results for input(s): COVID19 in the last 72 hours. Objective: Vitals: BP (!) 184/104 (BP Location: Left arm, Patient Position: Lying) Pulse 96 Temp 36.8 C (98.2 F) (Temporal) Resp 18 Ht 6' 1 (1.854 m) Wt 252 lb (114 kg) SpO2 96% BMI 33.25 kg/m Pulse Ox: SpO2 Av.7 % Min: 91 % Max: 97 % Supplemental O2: O2 Flow Rate (L/min): 2 L/min Physical Exam Vitals and nursing note reviewed. Constitutional: Appearance: He is obese. He is ill-appearing. HENT: Head: Normocephalic. Mouth/Throat: Mouth: Mucous membranes are dry. Eyes: General: Right eye: No discharge. Left eye: No discharge. Conjunctiva/sclera: Conjunctivae normal. Cardiovascular: Rate and Rhythm: Normal rate and regular rhythm. Heart sounds: No murmur heard. Pulmonary: Effort: No respiratory distress. Breath sounds: Rales present. No wheezing. Comments: Slight crackles to the base Abdominal: General: There is no distension. Tenderness: There is abdominal tenderness. There is no right CVA tenderness, left CVA tenderness orguarding. Comments: Epigastric tenderness Musculoskeletal: Right lower leg: Edema present. Left lower leg: No edema. Skin: General: Skin is warm. Capillary Refill: Capillary refill takes less than 2 seconds. Findings: No bruising. Neurological: Mental Status: He is alert and oriented to person, place, and time. Medications: Scheduled PRN acetaminophen, 500 mg, Oral, q8h amLODIPine, 10 mg, Oral, Daily cloNIDine, 1 patch, TransDERmal, Weekly DULoxetine, 30 mg, Oral, Daily folic acid, 1 mg, Oral, Daily metoprolol succinate XL, 100 mg, Oral, Daily pantoprazole, 40 mg, Oral, qAM AC potassium chloride CR, 40 mEq, Oral, Daily senna-docusate sodium, 2 tablet, Oral, BID thiamine, 100 mg, Oral, Daily PRN medications: bisacodyl, cloNIDine, dicyclomine, doxepin, hydrALAZINE, HYDROmorphone, hydrOXYzine pamoate, iopamidol, ketorolac, levalbuterol, naloxone, ondansetron ODT OR ondansetron, perflutren protein A microsphere (Optison) 3 mL in sodium chloride (PF) 0.9 % 10 mL IV syringe, polyethylene glycol (PEG) 3350, prochlorperazine, simethicone, traZODone Continuous sodium chloride, 250 mL/hr, Last Rate: Stopped (11/21/23 0300) Assessment Data: (CAT1) Reviewed 3 or more notes from different specialty or health system (each=1). (CAT1) Reviewed 3 or more labs/studies ordered by another provider not previously counted (each=1, panels count as 1). (LOW: 2x CAT1 or independent historian MOD: 3x CAT1 or 1x CAT3 EXTENSIVE: 3x CAT1 and 1x CAT3) Acute, acute on chronic, unstable/uncontrolled chronic problems/diagnoses: Abdomen pain secondary to pancreatitis Alcohol use disorder, severe ADM consulted, last drink 11/16, 11/17/23- 2359 - positive for alcohol 0.027 History of alcohol withdrawal seizures. Trend lipase Regular diet Chest tightness secondary to bilateral pulmonary effusions Obtain echo, cardiomegaly present - want to rule out heart failure component CXR showed bibasilar atelectasis Encourage him to use incentive spirometer at bedside - educated on how to use it. 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 Given hypertriglyceridemia and continual alcohol use - will recommend diet changes. - 11/19- VS reviewed, - tachycardic and hypertensive - increased metoprolol to 100 mg, added amlodipine to daily meds, monitor for increased seizures today - given 48 hours out of withdrawal, advancediet to regular, awaiting daily labs, encouraged to use IS as he has atelectasis on imaging. - 11/20- VS, CT reviewed - will give lasix, potassium and order echo. Educated again on IC use. TB rising today, but LFTs trending downwards, If worsening shortness of breath will consider thoracentesis. - - VS, labs - LFTs trending upwards, Continues to be hypertensive - will treat prn, replenish potassium, continues to be hyponatremic - obtain urine samples if it drops below one 130, AST 121, and ALT 56, with increase of TB, continue Xopenex, will not make any further adjustments, added oxycodone - will alternate between IV and oral, - am labs, replace lytes prn - PT/OT/CM/SW - delirium precautions: increase activity and limit nighttime disturbances - DVT prophylaxis: encourage ambulation Complexity: Chronic illness with severe exacerbation, progression, or side effect of tx (HIGH). Risk: Admission to hospital-level care was considered or occurred (HIGH). Advance Directive: Full Code Anticipated Discharge - Date - 11/20 - Location - home - Pending the following - improvement of pancreatitis Total time spent (which include face to face and non face to face encounters) : 51 minutes Toxic drug monitoring/narrow therapeutic index drug monitoring : # Drug name : hydralazine # Route administered : IV # Method of monitoring : monitor BP - avoid drop of BP, on telemetry No emergency contact information on file. Linda Kohler MD Division of Hospitalist Medicine [facility] * Dov Vanegas MD - 11/22/2023 6:48 AM EDT Images from the original note were not included. ADDICTION MEDICINE PROGRESS NOTE Patient: Roro Valdivia __ Problem List: Principal Problem: Acute pancreatitis without infection or necrosis Active Problems: Moderate malnutrition (CMS/HCC) (HCC) SUBJECTIVE Chief Complaint Patient presents with Abdominal Pain Alcohol Problem Pt seen and examined, he reports that his withdrawal symptoms age gone and done. Pt reports that he is still experiencing significant abd pain noting I think there is something else going on not just my pancreas. I couldn't sleep at all overnight because of the pain and the Dilaudid and Toradol aren't helping me like they were before. Pt reports that his pain is multi-characteristic includingsharp, achy and burning. Pt denies any other concerns today. No headache, changes in vision, cough,congestion, rhinorrhea, sore throat, urinary symptoms, CP or SOB. Denies SI/HI or AVH at this time. Interim History The Pt, Mr. Valdivia, is a 38 y/o M w/ a PMHx of Severe AUD, Severe OUD, Cocaine use disorder, Recurrent pancreatitis, Panic disorder, HTN and depression. Pt was admitted into [facility] for pancretitis andacute alcohol withdrawal. ADM consulted to assist in management of chemical detox. Review of Systems A 14 system ROS was collected and is negative unless otherwise noted above. OBJECTIVE Vitals Vitals: 11/22/23200911/22/23 2323 11/23/23 0300 11/23/23 0817 BP: (!) 158/104 149/86 150/85 (!) 166/105 BP Location: Right arm Right arm Left arm Patient Position: Sitting Sitting Sitting Pulse: 77 88 82 85 Resp: 18 18 18 18 Temp: 37.1 C (98.7 F) 37.3 C (99.2 F) 37.6 C (99.7 F) 36.8 C (98.3 F) TempSrc: Temporal Temporal Temporal Temporal SpO2: 96% 96% 95% 94% Weight: Height: Physical Exam Constitutional: Appearance: He is obese. HENT: Head: Normocephalic and atraumatic. Nose: Nose normal. Mouth/Throat: Mouth: Mucous membranes are moist. Eyes: Extraocular Movements: Extraocular movements intact. Pupils: Pupils are equal, round, and reactive to light. Cardiovascular: Rate and Rhythm: Normal rate and regular rhythm. Pulmonary: Effort: Pulmonary effort is normal. No respiratory distress. Abdominal: Palpations: Abdomen is soft. Tenderness: There is abdominal tenderness. Musculoskeletal: General: No deformity. Normal range of motion. Cervical back: Normal range of motion and neck supple. Skin: General: Skin is warm. Coloration: Skin is not jaundiced. Neurological: General: No focal deficit present. Mental Status: He is alert and oriented to person, place, and time. Psychiatric: Behavior: Behavior normal. Thought Content: Thought content normal. Medications Home Meds Current Outpatient Medications Medication Instructions cloNIDine (CATAPRES) 0.1 mg, Oral, 3 times daily DULoxetine (CYMBALTA) 30 mg, Oral, Daily, Do not crush or chew. hydrOXYzine HCl (ATARAX) 50 mg, Oral, 2 times daily PRN melatonin 5 mg, Oral, Nightly PRN metoprolol succinate XL (TOPROL-XL) 50 mg, Oral, Daily, Do not crush or chew. omeprazole (PRILOSEC) 20 mg, Oral, Daily before breakfast, Do not crush or chew. risperiDONE (RISPERDAL) 1 mg, Oral, 2 times daily Scheduled Inpatient Meds acetaminophen, 500 mg, Oral, q8h amLODIPine, 10 mg, Oral, Daily cloNIDine, 1 patch, TransDERmal, Weekly DULoxetine, 30 mg, Oral, Daily folic acid, 1 mg, Oral, Daily metoprolol succinate XL, 100 mg, Oral, Daily pantoprazole, 40 mg, Oral, qAM AC senna-docusate sodium, 2 tablet, Oral, BID thiamine, 100 mg, Oral, Daily PRN Inpatient Meds PRN medications: bisacodyl, cloNIDine, dicyclomine, doxepin, hydrALAZINE, HYDROmorphone, hydrOXYzine pamoate, iopamidol, ketorolac, levalbuterol, naloxone, ondansetron ODT OR ondansetron, oxyCODONE, perflutren protein A microsphere (Optison) 3 mL in sodium chloride (PF) 0.9 % 10 mL IV syringe, p olyethylene glycol (PEG) 3350, prochlorperazine, simethicone, traZODone Continuous Inpatient Infusions sodium chloride, 250 mL/hr, Last Rate: 250 mL/hr (11/23/23 0647) Recent Imaging CT abdomen pelvis w contrast Result Date: 11/18/2023 Patient Name: RORO VALDIVIA : 1985 Date/Time: 11/18/2023 02:04 Procedure: CT ABDOMEN PELVIS W CONTRAST Ordering Provider: JETT J Reason For Exam: Pancreatitis, acute, severe HISTORY: Pancreatitis After intravenous contrast sections performed through the abdomen and pelvis. Dose reduction was performed with automated exposure control. FINDINGS: 1. Changes of severe acute pancreatitis with mildly enlarged pancreas with extensive peripancreatic fluid extending into the anterior pararenal spaces and right upper quadrant (inferior to gallbladder and liver). 2. Moderate fatty infiltration liver with nondilated biliary system and no calcified gallstones identified with probable prior appendectomy. Report Dictated on Electronically Signed By: Gagan Rich MD Electronically Signed Date/Time: 11/18/2023 2:14 AM EDT Labs CBC: Recent Labs 11/21/2331111/22/2334011/23/23417 WBC 6.5 5.9 6.0 HGB 12.4* 12.2* 12.5* PLT 109* 142 144 MCV 92.8 91.8 91.9 RDW 15.3* 15.3* 15.7* BMP: Recent Labs 11/21/2331111/22/2334011/23/23417 NA 134* 132* 135 K 3.2* 3.2* 3.4* CL 103 102 104 CO2 24 BUN 6* 8* 7* CREATININE 0.44* 0.47* 0.51* CALCIUM 8.6 8.6 8.8 MG 1.9 2.2 2.4* Liver Profile: Recent Labs 11/21/2331111/22/2334011/23/23417 AST 69* 121* 141* ALT 47 56* 74* BILITOT 3.3* 4.0* 3.8* ALKPHOS 83 140* 205* PROT 6.2* 6.3 6.7 LIPASE -- -- 183 Glucose: Recent Labs 11/21/2331111/22/2334011/23/23417 GLUCOSE 95 118* 111* Lactic Acid: No lab exists for component: LACTA Cardiac Injury Profile: No results for input(s): CKTOTAL, CKMB, TROPONINI in the last 72 hours. Last 24 Hours: Recent Results (from the past 24 hour(s)) Hepatitis panel, acute Collection Time: 11/23/23 4:18 AM Result Value Ref Range HEPATITIS B VIRUS SURFACE AG Not Detected Not Detected HEPATITIS A VIRUS AB, IGM Not Detected Not Detected HEPATITIS B VIRUS CORE IGM AB Not Detected Not Detected HEPATITIS C VIRUS AB Not Detected Not Detected CBC auto differential Collection Time: 11/23/23 4:18 AM Result Value Ref Range Auto WBC 6.0 3.6 - 10.7 10*3/uL RBC 4.07 (L) 4.40 - 5.90 10*6/uL Hemoglobin 12.5 (L) 13.0 - 18.0 g/dL Hematocrit 37.4 (L) 40.0 - 52.0 % MCV 91.9 77.0 - 99.0 fL MCH 30.7 26.0 - 34.0 pg MCHC 33.4 30.5 - 36.0 % RDW 15.7 (H) 11.5 - 15.0 % Platelets 144 140 - 440 10*3/uL MPV 10.0 9.0 - 12.7 fL Comprehensive metabolic panel Collection Time: 11/23/23 4:18 AM Result Value Ref Range SODIUM 135 135 - 145 mmol/L POTASSIUM 3.4 (L) 3.5 - 5.1 mmol/L CHLORIDE 104 98 - 107 mmol/L CARBON DIOXIDE 24 22 - 30 mmol/L ANION GAP 8 3 - 13 mmol/L UREA NITROGEN 7 (L) 9 - 20 mg/dL CREATININE 0.51 (L) 0.66 - 1.25 mg/dL GLUCOSE 111 (H) 70 - 100 mg/dL CALCIUM 8.8 8.4 - 10.4 mg/dL AST (SGOT) 141 (H) 15 - 46 U/L ALT 74 (H) 0 - 49 U/L ALKALINE PHOSPHATASE 205 (H) 38 - 126 U/L ALBUMIN 3.4 (L) 3.5 - 5.0 g/dL BILIRUBIN, TOTAL 3.8 (H) 0.2 - 1.3 mg/dL TOTAL PROTEIN 6.7 6.3 - 8.2 g/dL eGFR >90.0 >60.0 mL/min/1.73m*2 MANUAL DIFFERENTIAL (CELLAVISION) Collection Time: 11/23/23 4:18 AM Result Value Ref Range RBC Morphology abnormal Poikilocytes Rare (A) (none) Hypochromia Slight (A) (none) Polychromasia Rare (A) (none) Target Cells Rare (A) (none) Stomatocytes Slight (A) (none) Neutrophils % 58 38 - 82 % Bands % 1 (H) <=0 % Lymphocytes % 20 15 - 45 % Monocytes % 14 (H) 5 - 13 % Eosinophils % 1 0 - 6 % Metamyelocytes % 3 (H) <=0 % Myelocytes % 3 (H) <=0 % Absolute Neutrophil Count 3.5 1.8 - 7.5 10*3/uL Bands Absolute 0.1 (H) <=0.0 10*3/uL Lymphocytes Absolute 1.2 1.0 - 4.3 10*3/uL Monocytes Absolute 0.8 0.0 - 0.9 10*3/uL Eosinophils Absolute 0.1 0.0 - 0.5 10*3/uL Metamyelocytes Absolute 0.2 (H) <=0.0 10*3/uL Myelocytes Absolute 0.2 (H) <=0.0 10*3/uL Neutrophils Manual 58 Lymphocytes Manual 20 Monocytes Manual 14 Eosinophils Manual 1 0 - 1 Basophils Manual Bands Manual 1 Metamyelocytes Manual 3 Myelocytes Manual 3 Promyelocytes Manual Blasts Manual Atypical Lymphocytes Manual Unclassified Cells, Manual Magnesium Collection Time: 11/23/23 4:18 AM Result Value Ref Range MAGNESIUM 2.4 (H) 1.6 - 2.3 mg/dL Lipase Collection Time: 11/23/23 4:18 AM Result Value Ref Range LIPASE 183 23 - 300 U/L ASSESSMENT & PLAN Severe alcohol use disorder Counseled patient on biopsychosocial consequences of substance use. Discussed aftercare including AA/NA, 1:1 counseling, IOP and residential treatment Discussed MAT including Acamprosate, Disulfiram, Naltrexone and Vivitrol Follow up plan for addiction management discussed with patient: Pt would like to continue with his current ADM provider (Dr. Escobar) Pt would does not want to continue Suboxone. ETOH withdrawal - resolved Last use of ETOH was day of admission. Phenobarbital discontinued. Ativan discontinued. PRN medications: Tylenol 500mg Q8H for pain Toradol 15mg IV Q6H PRN for pain Bentyl 20mg Q8H PRN for stomach cramps Doxepine 10mg PO at bedtime 1st line for sleep Vistaril 50mg Q6H PRN for anxiety Trazodone 50mg PRN at bedtime for sleep Abdominal pain Unclear pathology AST / ALT up trending Pt reports pain medication is not working compared to days prior and as a result he did not sleep overnight. Suspicion that GERD may be playing a role given partial description of burning abd pain in setting of Toradol use. PLAN: PPI 40mg PO Daily Tums x1 dose HTN BP again increasing Could be 2/2 pain but again unclear etiology - unlikely related to withdrawal 11/22/23 03:18:26 -- 72 -- 167/102 Abnormal -- 11/22/23 03:16:13 36.2 (97.2) 74 18 163/94 Abnormal 97 11/21/23 2300 36.8 (98.2) 78 20 136/98 95 11/21/23 19:32:36 36.9 (98.4) 75 19 159/101 Abnormal 96 11/21/23 15:23:38 37.6 (99.7) 80 20 147/86 91 11/21/23 11:28:21 36.8 (98.3) 81 18 122/71 93 11/21/23 07:21:16 37.2 (99) 82 20 149/94 94 11/21/23 0343 35.9 (96.7) 96 16 140/86 94 Increasing Norvasc to 10mg PO Daily Disposition: Discharge anticipated in ? days. This is pending: Withdrawal symptoms - Resolved Medical stabilization - ABD Pain of unknown etiology Labs/tests/tasks to review: LFTs . Nurse Ob to coordinate care with: N/A. A total of 65 minutes were spent reviewing the patient's records, evaluating the patient, entering orders, coordinating care with the treatment team, and creating this note. I reviewed the patient's medical record, and reviewed test results. I educated and then counseled the patient on any substance use disorder or chemical dependency related issues. This included a faceto face evaluation and physical examination, and coordinating care on a substance use disorder treatment plan as well as documenting clinical information on the day of visit. * Guillermo Richardson MD - 11/21/2023 11:11 AM EDT Images from the original note were not included. SUBJECTIVE: Patient was complaining of some increased shortness of breath last night and CTA was performed. Patient sleeping comfortably this morning. Patient rates abdominal pain a 5 out of 10 today. Patient reports having a bowel movement. Tolerating diet. CURRENT MEDICATIONS: Current Facility-Administered Medications: acetaminophen (Tylenol) tablet 500 mg, 500 mg, Oral, q8h, Dov Vanegas MD, 500 mg at 11/21/23 1054 amLODIPine (Norvasc) tablet 5 mg, 5 mg, Oral, Daily, Linda Kohler MD, 5 mg at 11/21/23 0906 bisacodyl (Dulcolax) suppository 10 mg, 10 mg, Rectal, Daily PRN, Nevaeh Marin MD cloNIDine (Catapres) tablet 0.1 mg, 0.1 mg, Oral, q6h PRN, Dov Vanegas MD cloNIDine (Catapres-TTS) 0.1 MG/24HR 1 patch, 1 patch, TransDERmal, Weekly, Blayne Allen MD, 1 patch at 11/18/23 0849 dicyclomine (Bentyl) capsule 20 mg, 20 mg, Oral, q8h PRN, Dov Vanegas MD, 20 mg at 11/21/23 0313 doxepin (SINEquan) capsule 10 mg, 10 mg, Oral, Nightly PRN, Dov Vanegas MD, 10 mg at 11/21/23312 DULoxetine (Cymbalta) DR capsule 30 mg, 30 mg, Oral, Daily, Blayne Allen MD, 30 mg at 11/21/23905 folic acid (Folvite) tablet 1 mg, 1 mg, Oral, Daily, Blayne Allen MD, 1 mg at 11/21/23905 hydrALAZINE (Apresoline) injection 5 mg, 5 mg, IntraVENous, q4h PRN, Blayne Allen MD, 5 mg at 11/20/232101 HYDROmorphone (Dilaudid) injection 1 mg, 1 mg, IntraVENous, q3h PRN, Linda Kohler MD, 1 mgat 11/21/23312 hydrOXYzine pamoate (Vistaril) capsule 50 mg, 50 mg, Oral, q6h PRN, Dov Vanegas MD, 50 mg at 11/20/232100 iopamidol (Isovue-370) 76 % injection 100 mL, 100 mL, IntraVENous, Once PRN, Linda Kohler MD ketorolac (Toradol) injection 15 mg, 15 mg, IntraVENous, q6h PRN, Dov Vanegas MD, 15 mg at 11/21/23920 levalbuterol (Xopenex) 0.63 MG/3ML nebulizer solution 0.63 mg, 0.63 mg, Nebulization, q8h PRN, Linda Kohler MD, 0.63 mg at 11/20/23 162 metoprolol succinate XL (Toprol-XL) 24 hr tablet 100 mg, 100 mg, Oral, Daily, Linda Kohler MD, 100 mg at 11/21/23905 naloxone (Narcan) injection 0.4 mg, 0.4 mg, IntraVENous, q5 min PRN, Blayne Allen MD ondansetron ODT (Zofran-ODT) disintegrating tablet 4 mg, 4 mg, Oral, q8h PRN OR ondansetron (Zofran) injection 4 mg, 4 mg, IntraVENous, q6h PRN, Blayne Allen MD, 4 mg at 11/18/23 0631 perflutren protein A microsphere (Optison) 3 mL in sodium chloride (PF) 0.9 % 10 mL IV syringe, 0-10 mL, IntraVENous, Once PRN, Linda oKhler MD PHENobarbital (Luminal) injection 65 mg, 65 mg, IntraVENous, q6h, Dov Vanegas MD, 65 mg at 11/21/23 0916 polyethylene glycol (PEG) 3350 (Miralax) packet 17 g, 17 g, Oral, Daily PRN, Blayne Allen MD, 17 g at 11/19/23 0826 potassium chloride CR (Klor-Con M10) ER tablet 40 mEq, 40 mEq, Oral, Daily, Linda Kohler MD, 40 mEq at 11/21/23 1054 potassium chloride IVPB 10 mEq, 10 mEq, IntraVENous, q1h, Linda Kohler MD, Last Rate: 100 mL/hr at 11/21/23 1052, 10 mEq at 11/21/23 1052 prochlorperazine (Compazine) injection 5 mg, 5 mg, IntraVENous, q6h PRN, Blayne Allen MD, 5 mg at1 1237 senna-docusate sodium (Senokot-S) 8.6-50 MG tablet 2 tablet, 2 tablet, Oral, BID, Nevaeh Marin MD, 2 tablet at 11/21/23 0906 simethicone (Mylicon) chewable tablet 80 mg, 80 mg, Oral, 4x daily PRN, Nevaeh Marin MD, 80 mg at 11/19/23 0826 sodium chloride 0.9 % infusion, 250 mL/hr, IntraVENous, Continuous, Blayne Allen MD, Stopped at 11/21/23 0300 thiamine (Vitamin B1) tablet 100 mg, 100 mg, Oral, Daily, Blayne Allen MD, 100 mg at 11/21/23 0906 traZODone (Desyrel) tablet 50 mg, 50 mg, Oral, Nightly PRN, Dov Vanegas MD, 50 mg at 11/20/23 2101 OBJECTIVE VITALS: BP 149/94 (BP Location: Left arm, Patient Position: Sitting) Pulse 82 Temp 37.2 C (99 F) (Temporal) Resp 20 Ht 6' 1 (1.854 m) Wt 252 lb (114 kg) SpO2 94% BMI 33.25 kg/m TEMPERATURE: Current - Temp: 37.2 C (99 F); Max - Temp Av.7 C (98 F) Min: 35.9 C (96.7 F) Max:37.4 C (99.3 F) RESPIRATIONS RANGE: Resp Av.7 Min: 16 Max: 28 PULSE RANGE: Pulse Av.3 Min: 82 Max: 107 BLOOD PRESSURE RANGE: Systolic (24hrs), Av , Min:135 , Max:176 ; Diastolic (24hrs), Av, Min:85, Max:114 PULSE OXIMETRY RANGE: SpO2 Av.2 % Min: 91 % Max: 97 % 24HR INTAKE/OUTPUT: Intake/Output Summary (Last 24 hours) at 11/21/2023 1112 Last data filed at 11/21/2023 0412 Gross per 24 hour Intake 89364 ml Output 3 ml Net 63325 ml GENERAL: Pleasant and NAD. HEENT: NCAT, PERRLA, EOMI, Scleral anicteric. Oropharhynx clear with no erythema or exudate. Neck supple, no cervical LAD or thyromegaly. CV: RRR, NL S1/S2, no murmurs. Distal pulses palpable and equal b/l. LUNGS: CTA b/l. Normal percussion and palpation. No W/R/R. ABD: + BS, soft, non-tender and non-distended. No hepatosplenomegaly. No mass felt. No rebound or guarding. EXT: No C/C/E. No muscle atrophy. SKIN: No skin lesion or breakdown. NEURO: A&O x 3, CN II-XII grossly intact. No asterixis. Laboratory Data: CBC: Results from last 7 days Lab Units 11/21/23 0312 11/20/23 0955 11/17/23 2359 WBC AUTO 10*3/uL 6.5 6.6 7.1 HEMOGLOBIN g/dL 12.4* 12.8* 16.1 HEMATOCRIT % 37.5* 37.7* 48.8 PLATELETS 10*3/uL 109* 77* 176 CMP: Recent Labs 11/19/23 1436 11/21/23 0312 NA 131* 134* K 4.0 3.2* CL 105 103 CO2 17* 23 BUN 6* 6* CREATININE 0.51* 0.44* GLUCOSE 110* 95 CALCIUM 8.2* 8.6 HEPATIC: Results from last 7 days Lab Units 11/21/23 0312 11/19/23 1436 11/18/23 0631 ALK PHOS U/L 83 74 156* BILIRUBIN TOTAL mg/dL 3.3* 3.1* 1.5* PROTEIN TOTAL g/dL 6.2* 6.1* 7.7 ALT U/L 47 55* 120* AST U/L 69* 68* 198* LIPASE/AMYLASE: Recent Labs 11/19/23 1436 11/20/23 0955 LIPASE 837* 421* LACTATE: No lab exists for component: LACTA TROPONIN: No results for input(s): TROPONINI in the last 72 hours. LIPIDS: No results for input(s): CHOL, HDL in the last 72 hours. No lab exists for component: LDLCALCU INR: No results for input(s): INR in the last 72 hours. NH3:No results for input(s): AMMONIA in the last 72 hours. Imaging: CTA: IMPRESSION: 1. No pulmonary artery embolus. 2. Bilateral small pleural effusions, left greater than right, with compressive atelectasis. New compared to 11/18/2023. 3. Cardiomegaly. Pulmonary vascular congestion. 4. Hepatic steatosis. 5. Splenomegaly. 6. CT abdomen and pelvis 11/18/2023 better demonstrates the acute pancreatitis. Interval increase influid in the left upper quadrant. ASSESSMENT AND PLAN Hypertension Alcohol abuse: -Encourage complete cessation of all alcohol -CIWA -Thiamine and folic acid -Addiction medicine following Acute pancreatitis: Likely related to alcohol abuse. CT scan showed severe acute pancreatitis with mildly enlarged pancreas with extensive peripancreatic fluid extending into the anterior perirenal space and right upper quadrant. Fatty infiltration of liver. Nondilated biliary system. No calcified gallstones identified. Triglycerides 232. No family history of pancreas issues. -Analgesics and antiemetics per primary service -Supportive therapies per primary service -Monitor LFTs -Diet as tolerated -Encourage complete cessation of all alcohol. Patient reports he does not want to drink alcohol anymore after discharge. (Comment: Please note this report has been produced using speech recognition software and may contain errors related to that system including errors in grammar, punctuation, and spelling, as well as words and phrases that may be inappropriate. If there are any questions or concerns please feel freeto contact the dictating provider for clarification.) * Linda Kohler MD - 11/21/2023 9:28 AM EDT Hospitalist Progress Note 11/21/2023 Subjective: Admit Date: 11/17/2023 PCP: Tam Hughes, DO Room#: B2-266/[id number] B BRIEF HOSPITAL COURSE: Roro is a 38 year old male, admitted for acoholic pancreatitis on 11/16, with his last drink being that evening. In ED, had increased epigastric pain, non-bloody emesis, no melena or GI bleed. He has been admitted for this in the past. Treated with fluid and on mIVF with clear liquids. He complainedof chest tightness that worsened on movement, CXR ordered Interval History: CTA shows no PE, bilateral effusions - lasix given with potassium as low today. Does have some cardiomaegaly with pulmonary vascular congestions and hepatic steatosis. Discussed that his alcohol abuse can contribute to this process. Will obtain an echo to see if thiswill help with the process. No fever or chills, No cough - still has some shortness of breath. He does snore but denies any sleep study in the past, Adult diet Regular 24HR INTAKE/OUTPUT: Intake/Output Summary (Last 24 hours) at 11/21/2023 0928 Last data filed at 11/21/2023 0412 Gross per 24 hour Intake 47090 ml Output 3 ml Net 02390 ml Past Medical History: Past Medical History: Diagnosis Date Alcohol withdrawal syndrome without complication (HCC) 06/27/2022 Alcohol withdrawal with inpatient treatment, uncomplicated (HCC) 03/15/2022 GERD (gastroesophageal reflux disease) History of pancreatitis 01/07/2023 Hypertension Pancreatitis Seizures (HCC) SVT (supraventricular tachycardia) (HCC) Tourette syndrome LABS: CBC: Recent Labs 11/20/23 0955 11/21/23 0312 WBC 6.6 6.5 RBC 4.08* 4.04* HGB 12.8* 12.4* HCT 37.7* 37.5* MCV 92.4 92.8 RDW 15.1* 15.3* PLT 77* 109* BMP: Recent Labs 11/19/23 1436 11/21/23 0312 NA 131* 134* K 4.0 3.2* CL 105 103 CO2 17* 23 BUN 6* 6* CREATININE 0.51* 0.44* GLUCOSE 110* 95 CALCIUM 8.2* 8.6 ANIONGAP 10 8 LIVER PROFILE: Recent Labs 11/19/23 1436 11/21/232 AST 68* 69* ALT 55* 47 BILITOT 3.1* 3.3* ALKPHOS 74 83 PROT 6.1* 6.2* PT/INR: No results for input(s): PROTIME, INR in the last 72 hours. CARDIAC ENZYMES: No results for input(s): TROPONINI in the last 72 hours. Procalcitonin: No results found for: PROCAL COVID-19 PCR: No results for input(s): COVID19 in the last 72 hours. Objective: Vitals: BP 149/94 (BP Location: Left arm, Patient Position: Sitting) Pulse 82 Temp 37.2 C (99 F) (Temporal) Resp 20 Ht 6' 1 (1.854 m) Wt 252 lb (114 kg) SpO2 94% BMI 33.25 kg/m Pulse Ox: SpO2 Av % Min: 91 % Max: 97 % Supplemental O2: O2 Flow Rate (L/min): 2 L/min Physical Exam Vitals and nursing note reviewed. Constitutional: Appearance: He is obese. He is ill-appearing. HENT: Head: Normocephalic. Mouth/Throat: Mouth: Mucous membranes are dry. Eyes: General: Right eye: No discharge. Left eye: No discharge. Conjunctiva/sclera: Conjunctivae normal. Cardiovascular: Rate and Rhythm: Normal rate and regular rhythm. Heart sounds: No murmur heard. Pulmonary: Effort: No respiratory distress. Breath sounds: Rales present. No wheezing. Comments: Slight crackles to the base Abdominal: General: There is no distension. Tenderness: There is abdominal tenderness. There is no right CVA tenderness, left CVA tenderness orguarding. Comments: Epigastric tenderness Musculoskeletal: Right lower leg: Edema present. Left lower leg: No edema. Skin: General: Skin is warm. Capillary Refill: Capillary refill takes less than 2 seconds. Findings: No bruising. Neurological: Mental Status: He is alert and oriented to person, place, and time. Medications: Scheduled PRN acetaminophen, 500 mg, Oral, q8h amLODIPine, 5 mg, Oral, Daily cloNIDine, 1 patch, TransDERmal, Weekly DULoxetine, 30 mg, Oral, Daily folic acid, 1 mg, Oral, Daily metoprolol succinate XL, 100 mg, Oral, Daily PHENobarbital, 65 mg, IntraVENous, q6h senna-docusate sodium, 2 tablet, Oral, BID thiamine, 100 mg, Oral, Daily PRN medications: bisacodyl, cloNIDine, dicyclomine, doxepin, hydrALAZINE, HYDROmorphone, hydrOXYzine pamoate, iopamidol, ketorolac, levalbuterol, naloxone, ondansetron ODT OR ondansetron, polyethylene glycol (PEG) 3350, prochlorperazine, simethicone, traZODone Continuous sodium chloride, 250 mL/hr, Last Rate: Stopped (11/21/23 0300) Assessment Data: (CAT1) Reviewed 3 or more notes from different specialty or health system (each=1). (CAT1) Reviewed 3 or more labs/studies ordered by another provider not previously counted (each=1, panels count as 1). (LOW: 2x CAT1 or independent historian MOD: 3x CAT1 or 1x CAT3 EXTENSIVE: 3x CAT1 and 1x CAT3) Acute, acute on chronic, unstable/uncontrolled chronic problems/diagnoses: Abdomen pain secondary to pancreatitis Alcohol use disorder, severe ADM consulted, last drink 11/16, 11/17/23- 2359 - positive for alcohol 0.027 History of alcohol withdrawal seizures. Trend lipase Regular diet Chest tightness secondary to bilateral pulmonary effusions Obtain echo, cardiomegaly present - want to rule out heart failure component CXR showed bibasilar atelectasis Encourage him to use incentive spirometer at bedside - educated on how to use it. Hypertension Clonidine and metoprolol Hydralazine for SBP >160 Added amlodipine and increased metoprolol to 100 mg PO daily Constipation Prn medications Transaminitis with hyperbilirubinemia Hypertriglyceridemia Alcohol ketosis Anion gap metabolic acidosis - resolved, Stable chronic problems affecting care, new non-acute diagnoses: Acute recurrent pancreatitis (alcohol induced) Recurrent MDD, 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 Palpitations Hx Benzodiazepine withdrawal with complication >1yr ago Hx opiod withdrawal -denies current use pending screen HX cocaine use disorder Polysubstance use disorder GERD SVT HTN Plan As a result of the above findings & factors, the following mgmt was pursued: - 11/18- Chest tightness - no CP, shortness of breath - will obtain CXR, Monitor liver function - TB increased, GI on board, will continue to monitor CIWA. Given hypertriglyceridemia and continual alcohol use - will recommend diet changes. - 11/19- VS reviewed, - tachycardic and hypertensive - increased metoprolol to 100 mg, added amlodipine to daily meds, monitor for increased seizures today - given 48 hours out of withdrawal, advancediet to regular, awaiting daily labs, encouraged to use IS as he has atelectasis on imaging. - 11/20- VS, CT reviewed - will give lasix, potassium and order echo. Educated again on IC use. TB rising today, but LFTs trending downwards, If worsening shortness of breath will consider thoracentesis. - am labs, replace lytes prn - PT/OT/CM/SW - delirium precautions: increase activity and limit nighttime disturbances - DVT prophylaxis: encourage ambulation Complexity: Chronic illness with severe exacerbation, progression, or side effect of tx (HIGH). Risk: Admission to hospital-level care was considered or occurred (HIGH). Advance Directive: Full Code Anticipated Discharge - Date - 11/20 - Location - home - Pending the following - improvement of pancreatitis Total time spent (which include face to face and non face to face encounters) : 51 minutes Toxic drug monitoring/narrow therapeutic index drug monitoring : # Drug name : hydralazine # Route administered : IV # Method of monitoring : monitor BP - avoid drop of BP, on telemetry No emergency contact information on file. Linda Kohler MD Division of Hospitalist Medicine [facility] * Linda Kohler MD - 11/20/2023 4:19 PM EDT Patient complaining of increased shortness of breath, tachycardia. No fever or chill. Given medications for withdrawal and pain. He has weak effort on his incentive spirometer. Will obtain CTA. Linda Kohler MD Division of Hospitalist Medicine [facility] * Dov Vanegas MD - 11/20/2023 3:31 PM EDT Images from the original note were not included. ADDICTION MEDICINE PROGRESS NOTE Patient: Roro Valdivia __ Problem List: Principal Problem: Acute pancreatitis without infection or necrosis Active Problems: Moderate malnutrition (CMS/HCC) (HCC) SUBJECTIVE Chief Complaint Patient presents with Abdominal Pain Alcohol Problem Interim History The Pt, Mr. Valdivia, is a 38 y/o M w/ a PMHx of Severe AUD, Severe OUD, Cocaine use disorder, Recurrent pancreatitis, Panic disorder, HTN and depression. Pt was admitted into [facility] for pancretitis andacute alcohol withdrawal. ADM consulted to assist in management of chemical detox. Pt seen and examined. Notes pain still present but improved. Notes that he is very anxious today. Ativan 1mg X3 since yesterday (0126, 1312, 1607). Pt is taking his Cymbalta and is taking [id number] PRN. Pt is still receiving PB 100mg IV Q4H. Withdrawal symptoms are decreasing. Denies any other concerns. Denies any SI/HI or AVH. Review of Systems A 14 system ROS was collected and is negative unless otherwise noted above. OBJECTIVE Vitals Vitals: 11/20/23 1334 11/20/23 1543 11/20/23175711/20/231947 BP: (!) 176/102 135/85 147/90 (!) 169/114 BP Location: Right arm Left arm Left arm Patient Position: Lying Lying Sitting Pulse: 106 105 107 Resp: (!) 28 20 20 Temp: 36.3 C (97.4 F) 36.1 C (96.9 F) 37.4 C (99.3 F) TempSrc: Temporal Temporal Temporal SpO2: 91% 97% 96% Weight: Height: Physical Exam Constitutional: Appearance: He is obese. Comments: Laying in bed HENT: Head: Normocephalic and atraumatic. Nose: Congestion present. Mouth/Throat: Mouth: Mucous membranes are moist. Eyes: Extraocular Movements: Extraocular movements intact. Pupils: Pupils are equal, round, and reactive to light. Cardiovascular: Rate and Rhythm: Normal rate. Pulses: Normal pulses. Pulmonary: Effort: Pulmonary effort is normal. No respiratory distress. Abdominal: Palpations: Abdomen is soft. Tenderness: There is abdominal tenderness. Musculoskeletal: General: No swelling. Normal range of motion. Cervical back: Normal range of motion. No rigidity. Skin: General: Skin is warm. Coloration: Skin is not jaundiced. Neurological: General: No focal deficit present. Mental Status: He is alert and oriented to person, place, and time. Cranial Nerves: No cranial nerve deficit. Psychiatric: Behavior: Behavior normal. Thought Content: Thought content normal. Medications Home Meds Current Outpatient Medications Medication Instructions cloNIDine (CATAPRES) 0.1 mg, Oral, 3 times daily DULoxetine (CYMBALTA) 30 mg, Oral, Daily, Do not crush or chew. hydrOXYzine HCl (ATARAX) 50 mg, Oral, 2 times daily PRN melatonin 5 mg, Oral, Nightly PRN metoprolol succinate XL (TOPROL-XL) 50 mg, Oral, Daily, Do not crush or chew. omeprazole (PRILOSEC) 20 mg, Oral, Daily before breakfast, Do not crush or chew. risperiDONE (RISPERDAL) 1 mg, Oral, 2 times daily Scheduled Inpatient Meds acetaminophen, 500 mg, Oral, q8h amLODIPine, 5 mg, Oral, Daily cloNIDine, 1 patch, TransDERmal, Weekly DULoxetine, 30 mg, Oral, Daily folic acid, 1 mg, Oral, Daily metoprolol succinate XL, 100 mg, Oral, Daily PHENobarbital, 65 mg, IntraVENous, q6h senna-docusate sodium, 2 tablet, Oral, BID thiamine, 100 mg, Oral, Daily PRN Inpatient Meds PRN medications: bisacodyl, cloNIDine, dicyclomine, doxepin, hydrALAZINE, HYDROmorphone, hydrOXYzine pamoate, iopamidol, ketorolac, levalbuterol, LORazepam OR LORazepam OR LORazepam OR LORazepam OR [DISCONTINUED] LORazepam OR [DISCONTINUED] LORazepam OR [DISCONTINUED] LORazepam OR [DISCONTINUED] LORazepam, naloxone, ondansetron ODT OR ondansetron, polyethylene glycol (PEG) 3350, prochlorperazine, simethicone, traZODone Continuous Inpatient Infusions sodium chloride, 250 mL/hr, Last Rate: 250 mL/hr (11/20/23 1336) Recent Imaging CT abdomen pelvis w contrast Result Date: 11/18/2023 Patient Name: RORO VALDIVIA : 1985 Date/Time: 11/18/2023 02:04 Procedure: CT ABDOMEN PELVIS W CONTRAST Ordering Provider: JETT J Reason For Exam: Pancreatitis, acute, severe HISTORY: Pancreatitis After intravenous contrast sections performed through the abdomen and pelvis. Dose reduction was performed with automated exposure control. FINDINGS: 1. Changes of severe acute pancreatitis with mildly enlarged pancreas with extensive peripancreatic fluid extending into the anterior pararenal spaces and right upper quadrant (inferior to gallbladder and liver). 2. Moderate fatty infiltration liver with nondilated biliary system and no calcified gallstones identified with probable prior appendectomy. Report Dictated on Electronically Signed By: Gagan Rich MD Electronically Signed Date/Time: 11/18/2023 2:14 AM EDT Labs Last 24 Hours: Recent Results (from the past 24 hour(s)) CBC auto differential Collection Time: 11/20/23 9:55 AM Result Value Ref Range Auto WBC 6.6 3.6 - 10.7 10*3/uL RBC 4.08 (L) 4.40 - 5.90 10*6/uL Hemoglobin 12.8 (L) 13.0 - 18.0 g/dL Hematocrit 37.7 (L) 40.0 - 52.0 % MCV 92.4 77.0 - 99.0 fL MCH 31.4 26.0 - 34.0 pg MCHC 34.0 30.5 - 36.0 % RDW 15.1 (H) 11.5 - 15.0 % Platelets 77 (L) 140 - 440 10*3/uL MPV 10.6 9.0 - 12.7 fL IPF 6 Lipase Collection Time: 11/20/23 9:55 AM Result Value Ref Range LIPASE 421 (H) 23 - 300 U/L Man Differential Collection Time: 11/20/23 9:55 AM Result Value Ref Range Adjusted WBC 6.6 3.6 - 10.7 10*3/uL Neutrophils % 55 38 - 82 % Bands % 25 (H) <=0 % Lymphocytes % 16 15 - 45 % Monocytes % 4 (L) 5 - 13 % Absolute Neutrophil Count 5.3 1.8 - 7.0 10*3/uL Segs Absolute 5.3 1.8 - 7.5 10*3/uL Bands Absolute 1.7 (H) <=0.0 10*3/uL Lymphocytes Absolute 1.1 1.0 - 4.3 10*3/uL Monocytes Absolute 0.3 0.0 - 0.9 10*3/uL Anisocytosis Slight (A) (none) Polychromasia Rare (A) (none) WBC Morphology Normal PLT Morphology Normal Total Counted 100 Neutrophils Manual 55 Lymphocytes Manual 16 Monocytes Manual 4 Bands Manual 25 Differential Method Manual differential performed ASSESSMENT & PLAN Severe alcohol use disorder Counseled patient on biopsychosocial consequences of substance use. Discussed aftercare including AA/NA, 1:1 counseling, IOP and residential treatment Discussed MAT including Acamprosate, Disulfiram, Naltrexone and Vivitrol Follow up plan for addiction management discussed with patient: Pt would like to continue with his current ADM provider (Dr. Escobar) Pt would does not want to continue Suboxone. ETOH withdrawal Last use of ETOH was day of admission. Phenobarb 100mg IV Q4H discontinued. Phenobarb 65mg IV Q6H started. Plan to decrease to 32mg PO tomorrow if appropriate. Ativan discontinued. CIWA scores per unit protocol. PRN medications for withdrawal symptom management: Tylenol 500mg Q8H for pain Toradol 15mg IV Q6H PRN for pain Bentyl 20mg Q8H PRN for stomach cramps Doxepine 10mg PO at bedtime 1st line for sleep Vistaril 50mg Q6H PRN for anxiety Trazodone 50mg PRN at bedtime for sleep Acute on chronic pancreatitis Elevated LFTs - Improving Abdominal pain in setting of pancreatitis Resistant hypertension Pt persistently drinking alcohol despite recurrent pancreatitis episodes Lipase > 4000 on admission; 421 today. AST (68) ALT (55) ALP (74) Pt's blood pressure is improving. Current antihypertensives: Norvasc 5mg PO Daily Clonidine patch 0.1mg Q weekly Metoprolol Succinate XL 50mg PO Daily Hydralazine 5mg IV Q4H PRN for SBP greater than 160 mmHg Clonidine 0.1mg PO Q6H PRN HOLD for sedation, SBP < 100 and / or HR < 50. Pain medications: Tylenol 500mg PO Q8H Dilaudid 0.5mg IV Q3H for moderate / severe pain Toradol 15mg IV Q6H PRN for moderate to severe pain unresponsive to Tylenol or Dilaudid. Disposition: Discharge anticipated in 2-3 days. This is pending: Resolution of withdrawal symptoms - likely to require 1-2 days. Medical stabilization - per IM team Labs/tests/tasks to review: Pain management, Aftercare discussion Nurse Ob to coordinate care with: N/A. Pt seen and examined. Pain improved slightly. Discontinued ativan, PB decreased. ADM to follow. A total of 37 minutes were spent reviewing the patient's records, evaluating the patient, entering orders, coordinating care with the treatment team, and creating this note. I reviewed the patient's medical record, and reviewed test results. I educated and then counseled the patient on any substance use disorder or chemical dependency related issues. This included a faceto face evaluation and physical examination, and coordinating care on a substance use disorder treatment plan as well as documenting clinical information on the day of visit. * Britney Lau RD - 11/20/2023 2:22 PM EDT Nutrition Assessment Type and Reason for Visit: Initial Nutrition Recommendations/Plan: Continue Regular Diet +thiamine and folic acid supplementation Encourage patient to participate in room service and order well balanced meals Per MNT protocol, added: Ensure High Protein BID between meals (+160 kcal, 16 g protein, 240 mL/serving) Please record % meals and oral nutrition supplements consumed in flowsheet for most accurate nutrient intake assessment. Obtain actual standing scale weight for most accurate anthropometric data RDN to continue to monitor weekly: fluid accumulation, weight, skin integrity, trends in lab values, tolerance of PO and ONS, improvement in clinical status, discharge planning. Malnutrition Assessment: Malnutrition Status: Moderate malnutrition Context: Social/Environmental Circumstances Findings of the 6 clinical characteristics of malnutrition: Energy Intake: 50% or less estimated energy requirements for 1 month or longer (d/t EtOH use/abuse,relapsed shortly after last discharge) Weight Loss: Mild weight loss (specify amount and time period) (-6.7 over three months based on stated weights) Body Fat Loss: Mild body fat loss Orbital Muscle Mass Loss: Mild muscle mass loss Temples (temporalis), Clavicles (pectoralis & deltoids), Thigh (quadraceps) Fluid Accumulation: No significant fluid accumulation Control Clerk Strength: Not Performed Nutrition Assessment: 38 year old man with PMHx: alcohol induced pancreatitis, GERD, HTN, seizures, Tourette syndrome. Hewas most recently admitted to [facility] 10/15-10/18/23 with acute pancreatitis. +IVF and bowel rest, diet progressed and was discharged home in stable condition. He now presents to [facility] with EtOH withdrawal andacute pancreatitis, reports last oral intake was three hours [employer]. Significant labs on admit: Gap(18), BUN(5), Creatinine(0.65), elevated LFTS- AST(249), ALT(148), AlkPhos(145). Lipase(>4000). +UDSfor opiates, EtOH(0.027). Admitted for management of pancreatitis. +ADM consulted and following formanagement of detox. GI consulted for management of pancreatitis- CT scan showed: severe acute pancr eatitis with mildly enlarged pancreas with extensive peripancreatic fluid extending into the anterior perirenal space and right upper quadrant. Fatty infiltration of liver. Nondilated biliary system.No calcified gallstones identified . Recommending ADAT. Poor PO [employer], not eating prior to admit only drinking . Does report having eight teeth pulled a few weeks ago and thus has been avoiding anything chewy . Denies food allergies or intolerances. Agreeable to Ensure High Protein BID between meals.With RN in the room, consent obtained and NFPE completed. +mild muscle and fat loss. Estimated Daily Nutrient Needs: Energy Requirements Based On: Kcal/kg Weight Used for Energy Requirements: [place] Weight for Energy Calculation (kg): 84 kg Total Energy Requirements (kcals/day): 9413-9949 (25-30 kcal/kg IBW) Weight Used for Protein Requirements: [place] Weight in Kg Used for Protein Requirements: 84 kg Estimated Total Protein (g/day): 84-101 (1.0-1.2 g protein/kg IBW) Estimated Daily Total Fluid (ml/day): per MD Nutrition Related Findings: No skin break down or edema noted. Froylan score=21. +constipation with bowel sounds. Meds: folic acid, thiamine, IVF< phenobarbital. Labs: TG(232), Lipase(837), +elevated LFTs Wound Type: None Current Nutrition Therapies: Adult diet Regular Current Oral Intake Average Meal Intake: Unable to assess (NPO/Clear liquid since admit) Average Supplements Intake: None Ordered Anthropometric Measures: Height: 185.4 cm (6' 1) Current Body Weight: 114 kg (252 lb) Weight Source: Stated Admission Body Weight: 114 kg (252 lb) (stated) Usual Body Weight: 122 kg (270 lb) (Per EMR --> 253# 11/06/22; 250# 06/25/23; 270# 08/10/23; 250# 10/16/23) % Weight Change (Calculated): -6.7 [place] Body Weight (lbs) (Calculated): 184 lbs [place] Body Weight (Kg) (Calculated): 84 kg % [place] Body Weight (Calculated): 137 % BMI (kg/m2) (Calculated): 33.3 Weight Adjustment For: No Adjustment BMI Categories: Obese Class 1 (BMI 30.0-34.9) Nutrition Diagnosis: Moderate malnutrition, In context of social or environmental circumstances related to inadequate protein-energy intake as evidenced by mild loss of subcutaneous fat, poor intake prior to admission, mild muscle loss Altered GI function related to altered GI function as evidenced by lab values (EtOH induced pancreatitis) Nutrition Interventions: Nutrition Education/Counseling: Education not indicated Coordination of Nutrition Care: Continue to monitor while inpatient Plan of Care discussed with: RN and patient Goals: Goals: other (specify) Specify Other Goals: Tolerate PO without GI distress Nutrition Monitoring and Evaluation: Behavioral-Environmental Outcomes: None Identified Food/Nutrient Intake Outcomes: Food and Nutrient Intake Physical Signs/Symptoms Outcomes: Biochemical Data, Chewing or Swallowing, GI Status, Nausea or Vomiting, Skin, Weight, Hemodynamic Status, Fluid Status or Edema Discharge Planning: No discharge needs at this time Britney Lau RDN, LDN, Contact: *[phone] * Linda Kohler MD - 11/20/2023 8:30 AM EDT Hospitalist Progress Note 11/20/2023 Subjective: Admit Date: 11/17/2023 PCP: Tam Hughes DO Room#: [id number] A BRIEF HOSPITAL COURSE: Roro is a 38 year old male, admitted for acoholic pancreatitis on 11/16, with his last drink being that evening. In ED, had increased epigastric pain, non-bloody emesis, no melena or GI bleed. He has been admitted for this in the past. Treated with fluid and on mIVF with clear liquids. He complainedof chest tightness that worsened on movement, CXR ordered Interval History: Increased tachycardic and hypertensive overnight - added amlodipine and increased metoprolol to 100mg Labs for the morning ordered. Pain has decreased but still has some epigastric pain and discomfort. No fever or chills. States that he does not want to drink when he leaves the hospital. Will advance diet to regular diet - and encouraged him to try FLD first. Monitor for increased withdrawal symptoms today - he is now 48 hours out from his last drink. Adult diet Clear liquid 24HR INTAKE/OUTPUT: No intake or output data in the 24 hours ending 11/20/23 0831 Past Medical History: Past Medical History: Diagnosis Date Alcohol withdrawal syndrome without complication (HCC) 06/27/2022 Alcohol withdrawal with inpatient treatment, uncomplicated (HCC) 03/15/2022 GERD (gastroesophageal reflux disease) History of pancreatitis 01/07/2023 Hypertension Pancreatitis Seizures (HCC) SVT (supraventricular tachycardia) (HCC) Tourette syndrome LABS: CBC: Recent Labs 11/17/232358 WBC 7.1 RBC 5.21 HGB 16.1 HCT 48.8 MCV 93.7 RDW 15.4* PLT 176 BMP: Recent Labs 11/17/23235811/18/23 0631 11/19/23 1436 NA 140 140 131* K 4.0 4.8 4.0 CL 104 103 105 CO2 18* 25 17* BUN 5* 5* 6* CREATININE 0.65* 0.64* 0.51* GLUCOSE 155* 126* 110* CALCIUM 9.1 9.4 8.2* ANIONGAP 18* 11 10 LIVER PROFILE: Recent Labs 11/17/23235811/18/2363011/19/23 1436 AST 249* 198* 68* ALT 148* 120* 55* BILITOT 1.0 1.5* 3.1* ALKPHOS 145* 156* 74 PROT 8.4* 7.7 6.1* PT/INR: No results for input(s): PROTIME, INR in the last 72 hours. CARDIAC ENZYMES: No results for input(s): TROPONINI in the last 72 hours. Procalcitonin: No results found for: PROCAL COVID-19 PCR: No results for input(s): COVID19 in the last 72 hours. Objective: Vitals: BP (!) 182/118 Pulse (!) 124 Temp 37 C (98.6 F) (Temporal) Resp 18 Ht 6' 1 (1.854 m) Wt 252 lb (114 kg) SpO2 95% BMI 33.25 kg/m Pulse Ox: SpO2 Av % Min: 94 % Max: 96 % Supplemental O2: Physical Exam Vitals and nursing note reviewed. Constitutional: Appearance: He is obese. He is ill-appearing. HENT: Head: Normocephalic. Mouth/Throat: Mouth: Mucous membranes are dry. Eyes: General: Right eye: No discharge. Left eye: No discharge. Conjunctiva/sclera: Conjunctivae normal. Cardiovascular: Rate and Rhythm: Normal rate and regular rhythm. Heart sounds: No murmur heard. Pulmonary: Effort: No respiratory distress. Breath sounds: No wheezing. Abdominal: General: There is no distension. Tenderness: There is abdominal tenderness. There is no right CVA tenderness, left CVA tenderness orguarding. Comments: Epigastric tenderness Musculoskeletal: Right lower leg: Edema present. Left lower leg: No edema. Skin: General: Skin is warm. Capillary Refill: Capillary refill takes less than 2 seconds. Findings: No bruising. Neurological: Mental Status: He is alert and oriented to person, place, and time. Medications: Scheduled PRN acetaminophen, 500 mg, Oral, q8h amLODIPine, 5 mg, Oral, Daily cloNIDine, 1 patch, TransDERmal, Weekly DULoxetine, 30 mg, Oral, Daily folic acid, 1 mg, Oral, Daily metoprolol succinate XL, 100 mg, Oral, Daily PHENobarbital, 100 mg, IntraVENous, Q4H senna-docusate sodium, 2 tablet, Oral, BID thiamine, 100 mg, Oral, Daily PRN medications: bisacodyl, dicyclomine, doxepin, hydrALAZINE, HYDROmorphone, hydrOXYzine pamoate, ketorolac, LORazepam OR LORazepam OR LORazepam OR LORazepam OR [DISCONTINUED] LORazepam OR [DISCONTINUED] LORazepam OR [DISCONTINUED] LORazepam OR [DISCONTINUED] LORazepam,naloxone, ondansetron ODT OR ondansetron, polyethylene glycol (PEG) 3350, prochlorperazine, simethicone, traZODone Continuous sodium chloride, 250 mL/hr, Last Rate: 250 mL/hr (11/20/23 0311) Assessment Data: (CAT1) Reviewed 3 or more notes from different specialty or health system (each=1). (CAT1) Reviewed 3 or more labs/studies ordered by another provider not previously counted (each=1, panels count as 1). (LOW: 2x CAT1 or independent historian MOD: 3x CAT1 or 1x CAT3 EXTENSIVE: 3x CAT1 and 1x CAT3) Acute, acute on chronic, unstable/uncontrolled chronic problems/diagnoses: Abdomen pain secondary to pancreatitis Alcohol use disorder, severe ADM consulted, last drink 11/16, 11/17/23- 3862 - positive for alcohol 0.027 History of alcohol withdrawal seizures. Trend lipase Regular diet Chest tightness CXR showed bibasilar atelectasis Encourage him to use incentive spirometer at bedside - educated on how to use it. Hypertension Clonidine and metoprolol Hydralazine for SBP >160 Added amlodipine and increased metoprolol to 100 mg PO daily Constipation Prn medications Transaminitis with hyperbilirubinemia Hypertriglyceridemia Alcohol ketosis Anion gap metabolic acidosis - resolved, Stable chronic problems affecting care, new non-acute diagnoses: Acute recurrent pancreatitis (alcohol induced) Recurrent MDD, 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 Palpitations Hx Benzodiazepine withdrawal with complication >1yr ago Hx opiod withdrawal -denies current use pending screen HX cocaine use disorder Polysubstance use disorder GERD SVT HTN Plan As a result of the above findings & factors, the following mgmt was pursued: - 11/18- Chest tightness - no CP, shortness of breath - will obtain CXR, Monitor liver function - TB increased, GI on board, will continue to monitor CIWA. Given hypertriglyceridemia and continual alcohol use - will recommend diet changes. - 11/19- VS reviewed, - tachycardic and hypertensive - increased metoprolol to 100 mg, added amlodipine to daily meds, monitor for increased seizures today - given 48 hours out of withdrawal, advancediet to regular, awaiting daily labs, encouraged to use IS as he has atelectasis on imaging. - am labs, replace lytes prn - PT/OT/CM/SW - delirium precautions: increase activity and limit nighttime disturbances - DVT prophylaxis: encourage ambulation Complexity: Chronic illness with severe exacerbation, progression, or side effect of tx (HIGH). Risk: Admission to hospital-level care was considered or occurred (HIGH). Advance Directive: Full Code Anticipated Discharge - Date - 11/20 - Location - home - Pending the following - improvement of pancreatitis Total time spent (which include face to face and non face to face encounters) : 51 minutes Toxic drug monitoring/narrow therapeutic index drug monitoring : # Drug name : hydralazine # Route administered : IV # Method of monitoring : monitor BP - avoid drop of BP, on telemetry No emergency contact information on file. Linda Kohler MD Division of Hospitalist Medicine [facility] * Linda Kohler MD - 11/19/2023 8:08 AM EDT Hospitalist Progress Note 11/19/2023 Subjective: Admit Date: 11/17/2023 PCP: Tam Hughes DO Room#: [id number] A BRIEF HOSPITAL COURSE: Roro is a 38 year old male, admitted for acoholic pancreatitis on 11/16, with his last drink being that evening. In ED, had increased epigastric pain, non-bloody emesis, no melena or GI bleed. He has been admitted for this in the past. Treated with fluid and on mIVF with clear liquids. He complainedof chest tightness that worsened on movement, CXR ordered Interval History: Today continues to feel unwell, abdomen pain has not improved and he feels chest tightness that worsens on movement, no effects on inspiration and expiration. No nausea at this time, Feels constipated and has a regimen. No tremors, anxiety and complaints of withdrawal symptoms at this time - but states that he has hada seizure in the past for the same. No overnight issues. Case and plan discussed with patient and bedside nurse. All questions answered. Adult diet Clear liquid 24HR INTAKE/OUTPUT: No intake or output data in the 24 hours ending 11/19/23 0808 Past Medical History: Past Medical History: Diagnosis Date Alcohol withdrawal syndrome without complication (HCC) 06/27/2022 Alcohol withdrawal with inpatient treatment, uncomplicated (HCC) 03/15/2022 GERD (gastroesophageal reflux disease) History of pancreatitis 01/07/2023 Hypertension Pancreatitis Seizures (HCC) SVT (supraventricular tachycardia) (HCC) Tourette syndrome LABS: CBC: Recent Labs 11/17/232358 WBC 7.1 RBC 5.21 HGB 16.1 HCT 48.8 MCV 93.7 RDW 15.4* PLT 176 BMP: Recent Labs 11/17/23 23511/18/23 0631 NA 140 140 K 4.0 4.8 CL 104 103 CO2 18* 25 BUN 5* 5* CREATININE 0.65* 0.64* GLUCOSE 155* 126* CALCIUM 9.1 9.4 ANIONGAP 18* 11 LIVER PROFILE: Recent Labs 11/17/23 23511/18/23 0631 AST 249* 198* ALT 148* 120* BILITOT 1.0 1.5* ALKPHOS 145* 156* PROT 8.4* 7.7 PT/INR: No results for input(s): PROTIME, INR in the last 72 hours. CARDIAC ENZYMES: No results for input(s): TROPONINI in the last 72 hours. Procalcitonin: No results found for: PROCAL COVID-19 PCR: No results for input(s): COVID19 in the last 72 hours. Objective: Vitals: BP (!) 184/98 (BP Location: Left arm, Patient Position: Lying) Comment: prn hydralzine given Pulse 78 Temp 36.1 C (97 F) (Temporal) Resp 16 Ht 6' 1 (1.854 m) Wt 252 lb (114 kg) SpO2 94% BMI 33.25 kg/m Pulse Ox: SpO2 Av % Min: 94 % Max: 96 % Supplemental O2: Physical Exam Vitals and nursing note reviewed. Constitutional: Appearance: He is obese. He is ill-appearing. HENT: Head: Normocephalic. Mouth/Throat: Mouth: Mucous membranes are dry. Eyes: General: Right eye: No discharge. Left eye: No discharge. Conjunctiva/sclera: Conjunctivae normal. Cardiovascular: Rate and Rhythm: Normal rate and regular rhythm. Heart sounds: No murmur heard. Pulmonary: Effort: No respiratory distress. Breath sounds: No wheezing. Abdominal: General: There is no distension. Tenderness: There is abdominal tenderness. There is no right CVA tenderness, left CVA tenderness orguarding. Comments: Epigastric tenderness Musculoskeletal: Right lower leg: Edema present. Left lower leg: No edema. Skin: General: Skin is warm. Capillary Refill: Capillary refill takes less than 2 seconds. Findings: No bruising. Neurological: Mental Status: He is alert and oriented to person, place, and time. Medications: Scheduled PRN acetaminophen, 500 mg, Oral, q8h cloNIDine, 1 patch, TransDERmal, Weekly DULoxetine, 30 mg, Oral, Daily folic acid, 1 mg, Oral, Daily metoprolol succinate XL, 50 mg, Oral, Daily PHENobarbital, 100 mg, IntraVENous, Q4H senna-docusate sodium, 2 tablet, Oral, BID thiamine, 100 mg, Oral, Daily PRN medications: bisacodyl, dicyclomine, doxepin, hydrALAZINE, HYDROmorphone, hydrOXYzine pamoate, ketorolac, LORazepam OR LORazepam OR LORazepam OR LORazepam OR [DISCONTINUED] LORazepam OR [DISCONTINUED] LORazepam OR [DISCONTINUED] LORazepam OR [DISCONTINUED] LORazepam,naloxone, ondansetron ODT OR ondansetron, polyethylene glycol (PEG) 3350, prochlorperazine, simethicone, traZODone Continuous sodium chloride, 250 mL/hr, Last Rate: 250 mL/hr (11/19/23 0619) Assessment Data: (CAT1) Reviewed 3 or more notes from different specialty or health system (each=1). (CAT1) Reviewed 3 or more labs/studies ordered by another provider not previously counted (each=1, panels count as 1). (LOW: 2x CAT1 or independent historian MOD: 3x CAT1 or 1x CAT3 EXTENSIVE: 3x CAT1 and 1x CAT3) Pending Labs Order Current Status Fentanyl, urine In process Acute, acute on chronic, unstable/uncontrolled chronic problems/diagnoses: Abdomen pain secondary to pancreatitis Alcohol use disorder, severe ADM consulted, last drink 11/16, 11/17/23- 235 - positive for alcohol 0.027 History of alcohol withdrawal seizures. Trend lipase Clear liquid diet - advance as tolerated. Chest tightness CXR - to rule out any acute cause - likely associate with pancreas given lower area of lungs bilaterally Hypertension Clonidine and metoprolol Hydralazine for SBP >160 Consider adding amlodipine on DC Constipation Prn medications Transaminitis with hyperbilirubinemia Hypertriglyceridemia Alcohol ketosis Anion gap metabolic acidosis - resolved, Stable chronic problems affecting care, new non-acute diagnoses: Acute recurrent pancreatitis (alcohol induced) Recurrent MDD, 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 Palpitations Hx Benzodiazepine withdrawal with complication >1yr ago Hx opiod withdrawal -denies current use pending screen HX cocaine use disorder Polysubstance use disorder GERD SVT HTN Plan As a result of the above findings & factors, the following mgmt was pursued: - 11/18- Chest tightness - no CP, shortness of breath - will obtain CXR, Monitor liver function - TB increased, GI on board, will continue to monitor CIWA. Given hypertriglyceridemia and continual alcohol use - will recommend diet changes. - am labs, replace lytes prn - PT/OT/CM/SW - delirium precautions: increase activity and limit nighttime disturbances - DVT prophylaxis: encourage ambulation Complexity: Chronic illness with severe exacerbation, progression, or side effect of tx (HIGH). Risk: Admission to hospital-level care was considered or occurred (HIGH). Advance Directive: Full Code Anticipated Discharge - Date - 11/20 - Location - home - Pending the following - improvement of pancreatitis Total time spent (which include face to face and non face to face encounters) : 43 minutes Toxic drug monitoring/narrow therapeutic index drug monitoring : # Drug name : hydralazine # Route administered : IV # Method of monitoring : monitor BP - avoid drop of BP, on telemetry No emergency contact information on file. Linda Kohler MD Division of Hospitalist Medicine [facility] * Lyly Jason - 11/19/2023 7:47 AM EDT Nutrition rescreen completed. Pt referred to RD for n/v, poor oral intake. * Dov Vanegas MD - 11/19/2023 5:08 AM EDT Images from the original note were not included. ADDICTION MEDICINE PROGRESS NOTE Patient: Roro Valdiiva __ Problem List: Principal Problem: Acute pancreatitis without infection or necrosis SUBJECTIVE Chief Complaint Patient presents with Abdominal Pain Alcohol Problem Interim History The Pt, Mr. Valdivia, is a 38 y/o M w/ a PMHx of Severe AUD, Severe OUD, Cocaine use disorder, Recurrent pancreatitis, Panic disorder, HTN and depression. Pt was admitted into [facility] for pancretitis andacute alcohol withdrawal. ADM consulted to assist in management of chemical detox. Pt seen and examined. Pt reports that he is anxious given his current admission and notes I know Ihave to quit. I know that there is nothing else that will stop this pain. I just get so anxious when I don't drink and my tics get worse. Pt notes that his pain has improved from a 10 on a scale of 1-10 to a 9 on a scale of 1-10. He reports some headache, nausea and abd pain. Denies any changes invision, cough, congestion, rhinorrhea, vomiting, CP or SOB. Denies any SI/HI or AVH at this time. Review of Systems A 14 system ROS was collected and is negative unless otherwise noted above. OBJECTIVE Vitals Vitals: 11/18/23 1242 11/18/23 1404 11/18/23 1528 11/18/23 2102 BP: (!) 182/116 (!) 176/101 (!) 168/95 (!) 165/106 BP Location: Left arm Left arm Patient Position: Lying Lying Pulse: 105 99 90 78 Resp: 16 16 16 16 Temp: 36.2 C (97.2 F) 36.5 C (97.7 F) 36.6 C (97.8 F) 36.1 C (97 F) TempSrc: Temporal Temporal Temporal Temporal SpO2: 95% 96% 95% 94% Weight: Height: Physical Exam Constitutional: Appearance: He is diaphoretic. Comments: Laying in bed, appears uncomfortable. HENT: Head: Normocephalic and atraumatic. Nose: Rhinorrhea present. Mouth/Throat: Mouth: Mucous membranes are dry. Eyes: Extraocular Movements: Extraocular movements intact. Pupils: Pupils are equal, round, and reactive to light. Cardiovascular: Rate and Rhythm: Normal rate. Pulses: Normal pulses. Pulmonary: Effort: Pulmonary effort is normal. No respiratory distress. Abdominal: Palpations: Abdomen is soft. Tenderness: There is abdominal tenderness. Musculoskeletal: General: No swelling or deformity. Normal range of motion. Cervical back: Normal range of motion. No rigidity. Skin: General: Skin is warm. Coloration: Skin is not jaundiced. Neurological: General: No focal deficit present. Mental Status: He is alert and oriented to person, place, and time. Cranial Nerves: No cranial nerve deficit. Medications Home Meds Current Outpatient Medications Medication Instructions cloNIDine (CATAPRES) 0.1 mg, Oral, 3 times daily DULoxetine (CYMBALTA) 30 mg, Oral, Daily, Do not crush or chew. hydrOXYzine HCl (ATARAX) 50 mg, Oral, 2 times daily PRN melatonin 5 mg, Oral, Nightly PRN metoprolol succinate XL (TOPROL-XL) 50 mg, Oral, Daily, Do not crush or chew. omeprazole (PRILOSEC) 20 mg, Oral, Daily before breakfast, Do not crush or chew. risperiDONE (RISPERDAL) 1 mg, Oral, 2 times daily Scheduled Inpatient Meds acetaminophen, 500 mg, Oral, q8h cloNIDine, 1 patch, TransDERmal, Weekly DULoxetine, 30 mg, Oral, Daily folic acid, 1 mg, Oral, Daily metoprolol succinate XL, 50 mg, Oral, Daily PHENobarbital, 100 mg, IntraVENous, Q4H thiamine, 100 mg, Oral, Daily PRN Inpatient Meds PRN medications: dicyclomine, doxepin, hydrALAZINE, HYDROmorphone, hydrOXYzine pamoate, ketorolac, LORazepam OR LORazepam OR LORazepam OR LORazepam OR [DISCONTINUED] LORazepam OR [DISCONTINUED] LORazepam OR [DISCONTINUED] LORazepam OR [DISCONTINUED] LORazepam, naloxone, ondansetron ODT OR ondansetron, polyethylene glycol (PEG) 3350, prochlorperazine, traZODone Continuous Inpatient Infusions sodium chloride, 250 mL/hr, Last Rate: 250 mL/hr (11/19/23 0254) Recent Imaging CT abdomen pelvis w contrast Result Date: 11/18/2023 Patient Name: RORO VALDIVIA : 1985 Date/Time: 11/18/2023 02:04 Procedure: CT ABDOMEN PELVIS W CONTRAST Ordering Provider: JETT J Reason For Exam: Pancreatitis, acute, severe HISTORY: Pancreatitis After intravenous contrast sections performed through the abdomen and pelvis. Dose reduction was performed with automated exposure control. FINDINGS: 1. Changes of severe acute pancreatitis with mildly enlarged pancreas with extensive peripancreatic fluid extending into the anterior pararenal spaces and right upper quadrant (inferior to gallbladder and liver). 2. Moderate fatty infiltration liver with nondilated biliary system and no calcified gallstones identified with probable prior appendectomy. Report Dictated on Electronically Signed By: Gagan Rich MD Electronically Signed Date/Time: 11/18/2023 2:14 AM EDT Labs Last 24 Hours: Recent Results (from the past 24 hour(s)) Lipase Collection Time: 11/18/23 6:31 AM Result Value Ref Range LIPASE >4,000 (H) 23 - 300 U/L Comprehensive metabolic panel Collection Time: 11/18/23 6:31 AM Result Value Ref Range SODIUM 140 135 - 145 mmol/L POTASSIUM 4.8 3.5 - 5.1 mmol/L CHLORIDE 103 98 - 107 mmol/L CARBON DIOXIDE 25 22 - 30 mmol/L ANION GAP 11 3 - 13 mmol/L UREA NITROGEN 5 (L) 9 - 20 mg/dL CREATININE 0.64 (L) 0.66 - 1.25 mg/dL GLUCOSE 126 (H) 70 - 100 mg/dL CALCIUM 9.4 8.4 - 10.4 mg/dL AST (SGOT) 198 (H) 15 - 46 U/L ALT 120 (H) 0 - 49 U/L ALKALINE PHOSPHATASE 156 (H) 38 - 126 U/L ALBUMIN 4.4 3.5 - 5.0 g/dL BILIRUBIN, TOTAL 1.5 (H) 0.2 - 1.3 mg/dL TOTAL PROTEIN 7.7 6.3 - 8.2 g/dL eGFR >90.0 >60.0 mL/min/1.73m*2 Triglycerides Collection Time: 11/18/23 6:31 AM Result Value Ref Range TRIGLYCERIDE 232 (H) <150 mg/dL ASSESSMENT & PLAN Severe alcohol use disorder Counseled patient on biopsychosocial consequences of substance use. Discussed aftercare including AA/NA, 1:1 counseling, IOP and residential treatment Discussed MAT including Acamprosate, Disulfiram, Naltrexone and Vivitrol Follow up plan for addiction management discussed with patient: Pt would like to continue with his current ADM provider (Dr. Escobar) Pt would does not want to continue Suboxone. Pt is interested in either Naltrexone, Disulfiram or Acamprosate. ETOH withdrawal Last use of ETOH was day of admission. Phenobarb 100mg IV Q4H for an additional 8 doses with reevaluation tomorrow. Ativan 1mg Q1H PRN for CIWA 8 to 10 - for break through sx Ativan 2mg Q1H PRN for CIWA 11 to 15 - for break through sx Notify ADM attending for CIWA > 16 CIWA scores per unit protocol. PRN medications for withdrawal symptom management: Tylenol 500mg Q8H for pain Toradol 15mg IV Q6H PRN for pain Bentyl 20mg Q8H PRN for stomach cramps Doxepine 10mg PO at bedtime 1st line for sleep Vistaril 50mg Q6H PRN for anxiety Trazodone 50mg PRN at bedtime for sleep Acute on chronic pancreatitis Elevated LFTs Pt persistently drinking alcohol despite recurrent pancreatitis episodes Lipase > 4000 on admission AST (198) ALT (120) ALP (156) CMP ordered. Lipase ordered. Hepatic sparing medications if possible Encourage Pt to take medication as prescribed Encourage Pt to increase PO hydration as tolerated Abdominal pain in setting of pancreatitis Resistant hypertension Pt's blood pressure is persistently elevated >160 systolic > 90 diastolic Current antihypertensives: Norvasc 5mg PO Daily Clonidine patch 0.1mg Q weekly Metoprolol Succinate XL 50mg PO Daily Hydralazine 5mg IV Q4H PRN for SBP greater than 160 mmHg Pain medications: Tylenol 500mg PO Q8H Dilaudid 0.5mg IV Q3H for moderate / severe pain Toradol 15mg IV Q6H PRN for moderate to severe pain unresponsive to Tylenol or Dilaudid. Recommend increasing Dilaudid to 1mg Q3H PRN for better pain control which should help lower BP. Disposition: Discharge anticipated in 3-4 days. This is pending: Resolution of withdrawal symptoms - likely to require 2-3 days. Medical stabilization - per IM team Labs/tests/tasks to review: Pain management, Labs, aftercare discussion Nurse Ob to coordinate care with: N/A. Pt seen and examined. Reports that Toradol has improved his pain to some extent but notes that his pain is still a 9 on a scale of 1-10. Reports that he was not taking his BP medication when he was drinking and notes that lack of taking his medication may be part of the problem but also that his pain is still not controlled. I only get a few hours here and there where my pain is tolerable and its miserable. Denies any other concerns. No SI/HI or AVH reported. Dilaudid should be increased to 1mg IV Q3H PRN for moderate to severe pain. Pt has no other concerns at this time. A total of 40 minutes were spent reviewing the patient's records, evaluating the patient, entering orders, coordinating care with the treatment team, and creating this note. I reviewed the patient's medical record, and reviewed test results. I educated and then counseled the patient on any substance use disorder or chemical dependency related issues. This included a faceto face evaluation and physical examination, and coordinating care on a substance use disorder treatment plan as well as documenting clinical information on the day of visit. * Nevaeh Marin MD - 11/18/2023 9:35 AM EDT Hospitalist Progress Note 11/18/2023 Subjective: Admit Date: 11/17/2023 PCP: Tam Hughes DO Room#: 232-09/232-09 A Brief Hospital course: Patient admitted 11/17/2023 for Acute panctreatitis, alcohol detox. Patient reports acute pain in epigastric region several hours before coming to ed with increasing severity, several epsisodes of vomiting/nonbloody, no melena or lower gi bleed, no hematemesis, increasing abdominal pain. On ct notedto have signs consistent with pancreatitis and elevated lipase. 2/2 arm position/kinked line, patient IV reset multiple times overnight due to patient positioning, 1st liter bolus not completed untilam of 11/17 then transitioned to 250ml/hr. Patient reports no BM for last 6 days, as well as poor appetite Interval History: 11/18/2023- Patient end line obsruction, slowed delivery of IVF bolus, abdominal pain, with regimen adjustment, no BM for several dayys. Discussed pain regimen with ADM, added bowel regimen. Patient notes gas/bloating sensation, added prn medication Case and plan discussed with patient and bedside nurse. All questions answered. Past Medical History: Past Medical History: Diagnosis Date Alcohol withdrawal syndrome without complication (HCC) 06/27/2022 Alcohol withdrawal with inpatient treatment, uncomplicated (HCC) 03/15/2022 GERD (gastroesophageal reflux disease) History of pancreatitis 01/07/2023 Hypertension Pancreatitis Seizures (HCC) SVT (supraventricular tachycardia) (HCC) Tourette syndrome Adult diet Clear liquid 24HR INTAKE/OUTPUT: Intake/Output Summary (Last 24 hours) at 11/18/2023 09 Last data filed at 11/18/2023 0233 Gross per 24 hour Intake -- Output 200 ml Net -200 ml LABS: CBC: Recent Labs 11/17/232358 WBC 7.1 RBC 5.21 HGB 16.1 HCT 48.8 MCV 93.7 RDW 15.4* PLT 176 BMP: Recent Labs 11/17/23235811/18/23 0631 NA 140 140 K 4.0 4.8 CL 104 103 CO2 18* 25 BUN 5* 5* CREATININE 0.65* 0.64* GLUCOSE 155* 126* CALCIUM 9.1 9.4 ANIONGAP 18* 11 LIVER PROFILE: Recent Labs 11/17/23235811/18/23 0631 AST 249* 198* ALT 148* 120* BILITOT 1.0 1.5* ALKPHOS 145* 156* PROT 8.4* 7.7 PT/INR: No results for input(s): PROTIME, INR in the last 72 hours. CARDIAC ENZYMES: No results for input(s): TROPONINI in the last 72 hours. Procalcitonin: No results found for: PROCAL COVID-19 PCR: No results for input(s): COVID19 in the last 72 hours. Objective: Vitals: BP (!) 180/98 (BP Location: Left arm, Patient Position: Lying) Pulse 87 Temp 36.1 C (97F) (Temporal) Resp 16 Ht 6' 1 (1.854 m) Wt 252 lb (114 kg) SpO2 96% BMI 33.25 kg/m Pulse Ox: SpO2 Av.4 % Min: 92 % Max: 97 % Supplemental O2: Physical Exam Constitutional: General: He is in acute distress. HENT: Head: Normocephalic. Eyes: Extraocular Movements: Extraocular movements intact. Cardiovascular: Rate and Rhythm: Normal rate. Comments: Notably hypertensive Pulmonary: Effort: Pulmonary effort is normal. Abdominal: Palpations: There is no mass. Tenderness: There is abdominal tenderness. There is guarding. There is no rebound. Musculoskeletal: General: Normal range of motion. Skin: General: Skin is warm and dry. Neurological: Mental Status: He is alert and oriented to person, place, and time. Psychiatric: Behavior: Behavior normal. Medications: Scheduled PRN cloNIDine, 1 patch, TransDERmal, Weekly folic acid, 1 mg, Oral, Daily PHENobarbital, 64.8 mg, Oral, Once thiamine, 100 mg, Oral, Daily PRN medications: acetaminophen OR acetaminophen, hydrALAZINE, HYDROmorphone, LORazepam OR LORazepam OR LORazepam OR LORazepam OR LORazepam OR LORazepam OR LORazepam ORLORazepam, naloxone, ondansetron ODT OR ondansetron, polyethylene glycol (PEG) 3350, prochlorperazine Continuous sodium chloride, 250 mL/hr Assessment Data: (CAT1) Reviewed 2 notes from different specialty or health system (each=1). (CAT1) Reviewed 2 labs/studies ordered by another provider not previously counted (each=1, panels count as 1). (CAT3) Mgmt of the patient was discussed with Dr. Vanegas, who stated, in summary: Adjustments for additional non-opiod adjuncts to pain regimen and preference deferring opiods barring acute distress. Discussed patients hx of alcohol withdrawal seizures and plan for phenobarbital (LOW: 2x CAT1 or independent historian MOD: 3x CAT1 or 1x CAT3 EXTENSIVE: 3x CAT1 and 1x CAT3) Acute, acute on chronic, unstable/uncontrolled chronic problems/diagnoses: Acute pancreatitis Prolonged constipation PO interolerance 2/2 above Alcohol use disorder, severe -last drink day of admission evening of 11/16, despite prolonged constipation and food intolerance Alcohol withdrawal with hx seizure complication Stable chronic problems affecting care, new non-acute diagnoses: Acute recurrent pancreatitis (alcohol induced) Recurrent MDD, 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 Palpitations Hx Benzodiazepine withdrawal with complication >1yr ago Hx opiod withdrawal -denies current use pending screen HX cocaine use disorder Polysubstance use disorder GERD SVT HTN Plan As a result of the above findings & factors, the following mgmt was pursued: - Admit to F with stable vitals - bowel regimen in absence of sbo - withdrawal regimen per ADM following-phenobarbital - Pain control regimen-appreciate ADM recs, increase if acute distress factors present - Consider Alternative htn medication amlodipine 2/2 hx hyperkalemia on ARB medications if metoprolol and clonidine patch insufficient - am labs, replace lytes prn - PT/OT/CM/SW - delirium precautions: increase activity, schedule melatonin at bedtime, and limit nighttime disturbances - DVT prophylaxis: encourage ambulation Complexity: Acute illness or injury posing a threat to life or body function (HIGH). Chronic illness with severe exacerbation, progression, or side effect of tx (HIGH). Multiple stable chronic illnesses (MOD). Risk: Use/consideration of a high risk treatment or study: IV controlled substances (HIGH). Admission to hospital-level care was considered or occurred (HIGH). Prescription drug/IVF/colloid was initiated, discontinued, adjusted; or reviewed with decision to maintain current orders (MOD). Advance Directive: Full Code Anticipated Discharge - Date - 11/23 - Location - Outpatient Therapy - Pending the following - Resolution of abdominal pain with resumption of diet, completion of alcohol detox, consideration of outpatient therapy follow up Total time spent (which include face to face and non face to face encounters) : 45 minutes No emergency contact information on file. Nevaeh Marin MD Division of Hospitalist Medicine Inpatient Medical Services/[facility] [place] documented in this [facility]10-15-2024 Consult note* Ryan Blanchard MD - 11/24/2023 2:09 PM EDTAssociated Order(s): IP CONSULT TO GENERAL SURGERY Images from the original note were not included. Attending Attestation [facility] - Surgery [facility] Surgery Patient Name: Roro Valdivia Date: 11/24/23 Patient seen and examined. Presents with abdominal pain radiating to back. Has significant history of alcohol use and abuse. Pain improved since admission, but persists. Past surgical history significant for appendectomy. No blood thinning medications. Exam: Abdomen: Soft, mildly TTP in epigastric area, nondistended. Assessment and Plan: 38 y.o. male with epigastric pain Labs, notes and imaging reviewed CT with questionable gallbladder sludge, but US normal Elevated LFTs related to acute on chronic liver dysfunction from alcohol use and abuse Alcoholic pancreatitis- lipase and pain improving Continue supportive care No surgical intervention planned Diet as tolerated Surgery will sign off, please call with questions This case had moderate medical decision making and case complexity with 60 minute total care time including chart review, care coordination and face to face encounter. The patient was seen and examined independently and relevant data reviewed by myself. A full chart review was performed. I personally interviewed the patient and performed an individual physical examination. In addition, I discussed the patient's condition and treatment options with them. I have also reviewed and agree with the past medical, family and social history and care plan unless otherwise noted. All of the patient's questions were answered. Ryan Blanchard MD General Surgery Pager #[phone] 8:13 PM 11/24/2023 Department of General Surgery Consult PATIENT NAME: Roro Valdivia DATE OF : 1985 ADMISSION DATE: 11/17/2023 11:22 PM TODAY'S DATE: 11/24/2023 Reason for Consult: upper abdominal pain, sludge in gallbladder HISTORY OF PRESENT ILLNESS: The patient is a 38 y.o. male who presents with abdominal pain. Patient states that he has experienced epigastric abdominal pain with radiation into the back for several days. He notes similar pain with previous episodes of pancreatitis. Patient endorses heavy alcohol use and notes interest in outpatient/residential facility and is working with addiction management. He notes that over the past days his pain improved as his detox progressed but that recently it has become worse and made worse bymovement. He denies fever/chills but does endorse nausea/vomiting, last episode of emesis was yesterday. Patient denies changes in bowel or bladder habits including hematochezia, melena, constipation, diarrhea, dysuria, or hematuria. He notes that he is concerned about his gallbladder and is going down for US this afternoon. PMH notable for alcohol abuse and withdrawal, GERD, pancreatitis, SVT. PSH notable for appendectomy. CT demonstrates possible sludge within gallbladder lumen, resolving pancreatitis, hepatic steatosis with splenomegaly. WBC 6.8, Hgb 12.0, hepatitis panel negative. Bilirubin improving 2.8 chronically elevated, lipase 183. VSS. Thoroughly reviewed the patient's medical history, family history, social history and review of systems with the patient today in the office. Please see medical record for pertinent positives. Past Medical History: Past Medical History: Diagnosis Date Alcohol withdrawal syndrome without complication (HCC) 06/27/2022 Alcohol withdrawal with inpatient treatment, uncomplicated (HCC) 03/15/2022 GERD (gastroesophageal reflux disease) History of pancreatitis 01/07/2023 Hypertension Pancreatitis Seizures (HCC) SVT (supraventricular tachycardia) (HCC) Tourette syndrome Past Surgical History: Past Surgical History: Procedure Laterality Date APPENDECTOMY Current Medications: amLODIPine, 10 mg, Oral, Daily cloNIDine, 1 patch, TransDERmal, Weekly DULoxetine, 30 mg, Oral, Daily folic acid, 1 mg, Oral, Daily metoprolol succinate XL, 100 mg, Oral, Daily pantoprazole, 40 mg, Oral, qAM AC senna-docusate sodium, 2 tablet, Oral, BID sodium phosphate, 1 enema, Rectal, Once thiamine, 100 mg, Oral, Daily sodium chloride, 125 mL/hr, Last Rate: 125 mL/hr (11/24/23 1310) PRN medications: bisacodyl, cloNIDine, dicyclomine, doxepin, hydrALAZINE, HYDROmorphone, hydrOXYzine pamoate, iopamidol, levalbuterol, naloxone, ondansetron ODT OR ondansetron, oxyCODONE, perflutren protein A microsphere (Optison) 3 mL in sodium chloride (PF) 0.9 % 10 mL IV syringe, polyethylene glycol (PEG) 3350, prochlorperazine, simethicone, traZODone Allergies: Patient has no known allergies. Social History: Social History Socioeconomic History Marital status: Single Spouse name: Not on file Number of children: Not on file Years of education: Not on file Highest education level: Not on file Occupational History Not on file Tobacco Use Smoking status: Every Day Current packs/day: 1.00 Types: Cigarettes Smokeless tobacco: Never Vaping Use Vaping status: Never Used Substance and Sexual Activity Alcohol use: Yes Comment: 2/5 vodka daily Drug use: Not Currently Types: Cocaine, Methamphetamines, Oxycodone, Fentanyl, Heroin, Benzodiazepines Sexual activity: Not Currently Other Topics Concern Not on file Social History Narrative Not on file Social Determinants of Health Financial Resource Strain: High Risk (10/16/2023) Overall Financial Resource Strain (CARDIA) Difficulty of Paying Living Expenses: Very hard Food Insecurity: Food Insecurity Present (10/16/2023) Hunger Vital Sign Worried About Running Out of Food in the Last Year: Often true Ran Out of Food in the Last Year: Often true Transportation Needs: No Transportation Needs (10/16/2023) PRAPARE - Transportation Lack of Transportation (Medical): No Lack of Transportation (Non-Medical): No Physical Activity: Inactive (10/16/2023) Exercise Vital Sign Days of Exercise per Week: 0 days Minutes of Exercise per Session: 0 min Stress: Stress Concern Present (10/16/2023) [employer] - Occupational Stress Questionnaire Feeling of Stress : Very much Social Connections: Socially Isolated (10/16/2023) Social Connection and Isolation Panel [NHANES] Frequency of Communication with Friends and Family: Never Frequency of Social Gatherings with Friends and Family: Never Attends [employer] Services: Never Active Member of Clubs or Organizations: No Attends Club or Organization Meetings: Never Marital Status: Never Intimate Partner Violence: Not At Risk (11/18/2023) Humiliation, Afraid, Rape, and Kick questionnaire Fear of Current or Ex-Partner: No Emotionally Abused: No Physically Abused: No Sexually Abused: No Housing Stability: High Risk (10/16/2023) Housing Stability Vital Sign Unable to Pay for Housing in the Last Year: Yes Number of Times Moved in the Last Year: 2 Homeless in the Last Year: Yes Family History: Family History Problem Relation Name Age of Onset No Known Problems Mother No Known Problems Father REVIEW OF SYSTEMS: CONSTITUTIONAL: Negative for fatigue, and unexpected weight change HENT: Negative for hearing loss, nosebleeds, sneezing, sore throat, trouble swallowing and voice change. RESPIRATORY: Negative for cough, SOB, and wheezing CARDIOVASCULAR: Negative for chest pains and palpatations GASTROINTESTINAL: Positive for abdominal pain, nausea, and vomiting. Negative for fever/chills, hematochezia, melena, constipation, or diarrhea GENITOURINARY: negative for dysuria, urgency, frequency, and difficulty urinating. SKIN: negative for rash ALLERGIC/IMMUNOLOGIC: Negative for immunocompromised state HEMATOLOGIC/LYMPHATIC: Negative for adenopathy. Does not bruise/bleed easily. NEUROLOGICAL: Negative for seizures and syncope * All other ROS reviewed see HPI for pertinent positives and negatives. PHYSICAL EXAM: VITALS: BP (!) 163/97 Pulse 87 Temp 36.9 C (98.4 F) (Temporal) Resp 20 Ht 6' 1 (1.854 m) Wt 252 lb (114 kg) SpO2 98% BMI 33.25 kg/m 24HR INTAKE/OUTPUT: I/O last 3 completed shifts: In: 3958.3 (34.6 mL/kg) [I.V.:3958.3 (34.6 mL/kg)] Out: 4 (0 mL/kg) [Urine:4 (0 mL/kg/hr)] Weight: 114.3 kg I/O this shift: In: 850 [P.O.:850] Out: - CONSTITUTIONAL: Appears well nourished. No distress EYES: PERRL, conjunctiva normal ENT: Normocepalic,atraumatic, without obvious abnormality NECK: supple, symmetrical, trachea midline, no thyromegaly LUNGS: Resp effort easy and unlabored, breath sounds normal CARDIOVASCULAR: NO JVD, RRR, No murmur ABDOMEN: soft, nondistended, epigastric tenderness, (-)Li sign, peritoneal signs absent, no masses palpated and hernia absent MUSCULOSKELETAL: Normal range of motion, no edema NEUROLOGIC: Mental Status Exam: Level of Alertness: alert Sensation globally intact PSYCHIATRIC: Oriented to person, place, and time. Speech is normal, mood appears normal SKIN: Warm, dry, and intact DATA: CT abdomen pelvis wo IV contrast Status: Final result Link to Procedure Log Procedure Log Orders Requiring a Screening Form Procedure Order Status Order ID Accession Number Form Status CT abdomen pelvis wo IV contrast Completed [id number] Created PACS Images Show images for CT abdomen pelvis wo IV contrast Study Result Narrative & Impression Patient Name: RORO VALDIVIA : 1985 Exam Date/Time: 11/22/2023 22:11 Procedure: CT ABDOMEN PELVIS WO IV CONTRAST Ordering Provider: ALLEN DANIEL Reason For Exam: Pancreatitis, acute, severe CT ABDOMEN AND PELVIS Indication: 38-year-old male; inpatient; pancreatitis; elevated lipase Scan Parameters: Multiple axial CT images were obtained of the abdomen and pelvis. Coronal and sagittal reconstructions were reviewed as well. ALARA protocol. Dose reduction was employed with automated exposure control. Contrast: No IV and no oral contrast Comparison: CT abdomen and pelvis 11/18/2023; CTA chest 12/30/2023 FINDINGS: There is a small left pleural effusion and trace right pleural effusion with left lung base compressive atelectasis, new compared to prior 11/18/2023. There is no pericardial effusion. There are no atherosclerotic calcifications along the aorta. The bone mineralization is normal. There is edema in the subcutaneous fat of the abdomen and pelvis, new compared to prior exam. There is fatty infiltration of the liver. The spleen is enlarged. Possible sludge within the gallbladder lumen. The pancreas is edematous. There is stranding and edema with fluid in the fat surrounding the pancreas. Overall the associated edema and fluid has decreased compared to 11/18/2023. There is no hydronephrosis. The bladder is distended with approximately 17 cm, likely due to urinary retention when compared toprior exam. The prostate gland is not enlarged. Trace fluid is present within the right and left lower quadrant. The appendix is not visible with postsurgical changes of the cecum. A small sliding-type hiatal hernia is present. There is no evidence of bowel obstruction. A few colonic diverticuli are present. There is no adenopathy. IMPRESSION: Resolving pancreatitis, as above. Bilateral small pleural effusions, left greater than right, slightly decreased compared to 11/20/2023 CTA CHEST. Interval development of edema within the subcutaneous fatty tissue of the ventral abdomen. Hepatic steatosis. Splenomegaly. Colonic diverticulosis. Report Dictated on Electronically Signed By: Seema Watson MD Electronically Signed Date/Time: 11/22/2023 10:52 PM EDT Result History CT abdomen pelvis wo IV contrast (Order #[id number]) on 11/22/2023 - Order Result History Report CT abdomen pelvis wo IV contrast: Patient Communication Add Comments Seen Breast Imaging Recommendations Roro Valdivia No recommendations exist for this order. Risk Scores No Tyrer-Cuzick assessment data. No Risk Considerations assessment data. No NCC HBOC Guidelines assessment data. No NCCN Bonilla assessment data. No Risk Explanation Tyrer-Cuzick 8 assessment data. No BRCAPRO assessment data. No Myriad risk assessment data. No Greg risk assessment data. No Chetna risk assessment data. No FOOD INSPECTOR Request ID assessment data. No [facility] traffic observer ID assessment data. Breast Cancer Risk Navigation Events None Signed by Signed Time Phone Pager Seema Watson MD 11/22/2023 22:52 Exam Information Status Exam Begun Exam Ended Final 11/22/2023 21:24 11/22/2023 22:09 External Results Report Open External Results Report Encounter View Encounter Screening Form Questions No questions have been answered for this form. Study Details Open Study Details Order Transmittal Tracking CT abdomen pelvis wo IV contrast (Order #[id number]) on 11/22/[address] abdomen pelvis wo IV contrast (Order #[id number]) on 11/22/23 CBC: Recent Labs 11/22/2334011/23/23 0418 11/24/23 0120 WBC 5.9 6.0 6.8 HGB 12.2* 12.5* 12.0* HCT 35.7* 37.4* 36.8* PLT 142 144 179 BMP: Recent Labs 11/22/2334011/23/23 0418 11/24/23 0120 NA 132* 135 136 K 3.2* 3.4* 3.7 CL 102 104 106 CO2 23 24 23 BUN 8* 7* 3* CREATININE 0.47* 0.51* 0.51* GLUCOSE 118* 111* 113* Hepatic: Recent Labs 11/22/2334011/23/23 0418 11/24/23 0120 AST 121* 141* 195* ALT 56* 74* 121* BILITOT 4.0* 3.8* 2.8* ALKPHOS 140* 205* 293* Mag: Recent Labs 11/22/2334011/23/23 041 MG 2.2 2.4* Phos: No results for input(s): PHOS in the last 72 hours. INR: No results for input(s): INR in the last 72 hours. IMPRESSION/RECOMMENDATIONS: Mr. Valdivia is a 38 y.o. M presenting with abdominal pain, pancreatitis -CT demonstrates possible sludge within gallbladder lumen, resolving pancreatitis, hepatic steatosis with splenomegaly -WBC 6.8, Hgb 12.0, hepatitis panel negative -Bilirubin improving 2.8 chronically elevated, lipase 183 -US abdomen ordered for further evaluation -Okay for FLD continuation -ADM following -GI signed off -Medical mgmt per primary team Disposition: Patient with resolving pancreatitis on imaging/labs with expected epigastric abdominalpain. Possible element of gallbladder sludge unlikely to be source of symptoms but evaluating further with ultrasound. Okay for diet. No surgical intervention anticipated however will continue to follow. Patient counseled on risks, benefits, and alternatives of treatment plan at length. Patient states an understanding and willingness to proceed with plan. Thank you for the opportunity to care for your patient, please don't hesitate to contact me for anyquestions or concerns you may have. ESTRELLA Iyer Secure Chat during hours 7:30a-4:30p Thursday-Thursday After hours, please contact physician material handler floorperson. * Guillermo Richardson MD - 11/18/2023 11:50 AM EDTAssociated Order(s): Inpatient consult to Gastroenterology Images from the original note were not included. GI CONSULTATION Patient: Roro Valdivia : 1985 Primary Care Physician: Tam Hughes DO Inpatient consult to Gastroenterology Consult performed by: Guillermo Richardson MD Consult ordered by: Blayne Allen MD REASON FOR CONSULTATION: Acute pancreatitis HISTORY OF PRESENT ILLNESS: Roro Valdivia is a 38 y.o. male with PMH below who presented to the ER complaining of epigastric abdominal pain. Patient reports that he drinks alcohol daily. He has hadissues with upper abdominal pain in the past. Reports being diagnosed with mild pancreatitis in thepast but nothing similar to what is going on now. Patient describes 10 out of 10 sharp stabbing pain in the epigastric region radiating to the back. Denies any nausea, fever/chills, chest pain, shortness of breath. Exacerbated with movement or any oral intake. Denies any relieving factors.In the ERlabs showed: Sodium 140, potassium 4, BUN 5, creatinine 0.65, calcium 9.1, alkaline phosphatase 145, AST 249, ALT 148, total bilirubin 1, lipase greater than 4000. Triglycerides 232. Normal CBC. CT abdomen/pelvis showed changes of severe acute pancreatitis and mildly enlarged pancreas with extensive peripancreatic fluid extending into the anterior pararenal space and right upper quadrant. Moderate fatty infiltration of liver with nondilated biliary system and no calcified gallstones identified w ith probable prior appendectomy. Patient was admitted for further evaluation management. PAST MEDICAL HISTORY: Past Medical History: Diagnosis Date Alcohol withdrawal syndrome without complication (HCC) 06/27/2022 Alcohol withdrawal with inpatient treatment, uncomplicated (HCC) 03/15/2022 GERD (gastroesophageal reflux disease) History of pancreatitis 01/07/2023 Hypertension Pancreatitis Seizures (HCC) SVT (supraventricular tachycardia) (HCC) Tourette syndrome PAST SURGICAL HISTORY: Past Surgical History: Procedure Laterality Date APPENDECTOMY FAMILY HISTORY: Family History Problem Relation Name Age of Onset No Known Problems Mother No Known Problems Father SOCIAL HISTORY: TOBACCO: Social History Tobacco Use Smoking Status Every Day Current packs/day: 1.00 Types: Cigarettes Smokeless Tobacco Never ETOH: Alcohol Use: Alcohol Misuse (11/18/2023) AUDIT-C Frequency of Alcohol Consumption: 4 or more times a week Average Number of Drinks: 10 or more Frequency of Binge Drinking: Daily or almost daily DRUGS: Social History Substance and Sexual Activity Drug Use Not Currently Types: Cocaine, Methamphetamines, Oxycodone, Fentanyl, Heroin, Benzodiazepines MEDICATIONS PRIOR TO ADMISSION: Current Outpatient Medications Medication Instructions cloNIDine (CATAPRES) 0.1 mg, Oral, 3 times daily DULoxetine (CYMBALTA) 30 mg, Oral, Daily, Do not crush or chew. hydrOXYzine HCl (ATARAX) 50 mg, Oral, 2 times daily PRN melatonin 5 mg, Oral, Nightly PRN metoprolol succinate XL (TOPROL-XL) 50 mg, Oral, Daily, Do not crush or chew. omeprazole (PRILOSEC) 20 mg, Oral, Daily before breakfast, Do not crush or chew. risperiDONE (RISPERDAL) 1 mg, Oral, 2 times daily CURRENT MEDICATIONS: Current Facility-Administered Medications: acetaminophen (Tylenol) tablet 500 mg, 500 mg, Oral, q8h, Dov Vanegas MD cloNIDine (Catapres-TTS) 0.1 MG/24HR 1 patch, 1 patch, TransDERmal, Weekly, Blayne Allen MD, 1 patch at 11/18/23 0849 dicyclomine (Bentyl) capsule 20 mg, 20 mg, Oral, q8h PRN, Dov Vanegas MD doxepin (SINEquan) capsule 10 mg, 10 mg, Oral, Nightly PRN, Dov Vanegas MD DULoxetine (Cymbalta) DR capsule 30 mg, 30 mg, Oral, Daily, Blayne Allen MD folic acid (Folvite) tablet 1 mg, 1 mg, Oral, Daily, Blayne Allen MD hydrALAZINE (Apresoline) injection 5 mg, 5 mg, IntraVENous, q4h PRN, Blayne Allen MD HYDROmorphone (Dilaudid) injection 0.5 mg, 0.5 mg, IntraVENous, q3h PRN, Blayne Allen MD, 0.5 mg at 11/18/23 0848 hydrOXYzine pamoate (Vistaril) capsule 50 mg, 50 mg, Oral, q6h PRN, Dov Vanegas MD ketorolac (Toradol) injection 15 mg, 15 mg, IntraVENous, q6h PRN, Dov Vanegas MD LORazepam (Ativan) tablet 1 mg, 1 mg, Oral, q1h PRN OR LORazepam (Ativan) injection 1 mg, 1 mg,IntraVENous, q1h PRN OR LORazepam (Ativan) tablet 2 mg, 2 mg, Oral, q1h PRN OR LORazepam (Ativan) injection 2 mg, 2 mg, IntraVENous, q1h PRN, 2 mg at 11/18/23 0658 OR [DISCONTINUED] LORazepam (Ativan) tablet 3 mg, 3 mg, Oral, q1h PRN OR [DISCONTINUED] LORazepam (Ativan) injection 3 mg, 3 mg, IntraVENous, q1h PRN OR [DISCONTINUED] LORazepam (Ativan) tablet 4 mg, 4 mg, Oral, q1hPRN OR [DISCONTINUED] LORazepam (Ativan) injection 4 mg, 4 mg, IntraVENous, q1h PRN, Blayne Allen MD metoprolol succinate XL (Toprol-XL) 24 hr tablet 50 mg, 50 mg, Oral, Daily, Blayne Allen MD naloxone (Narcan) injection 0.4 mg, 0.4 mg, IntraVENous, q5 min PRN, Blayne Allen MD ondansetron ODT (Zofran-ODT) disintegrating tablet 4 mg, 4 mg, Oral, q8h PRN OR ondansetron (Zofran) injection 4 mg, 4 mg, IntraVENous, q6h PRN, Blayne Allen MD, 4 mg at 11/18/23 0631 PHENobarbital (Luminal) injection 100 mg, 100 mg, IntraVENous, Q4H, Dov Vanegas MD, 100 mg at 11/18/23 1045 polyethylene glycol (PEG) 3350 (Miralax) packet 17 g, 17 g, Oral, Daily PRN, Blayne Allen MD prochlorperazine (Compazine) injection 5 mg, 5 mg, IntraVENous, q6h PRN, Blayne Allen MD sodium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 Alexandre MD, starting on ThuNov 18, 2023 4:03 AM (Active) Chief Complaint: Abdominal Pain and Alcohol Problem HPI: He started with pain in his epigastric area a few hour before coming to the ed Mid abd area He also had reflux He then had increased pain in upper and mid abd He reports several episodes of vomiting, non bloody He denies any bleeding from below He has difficult to control abd pain. Review of Systems: General: Skin: HEENT: Cardiovascular Fever n Rashes Difficulty chewing Chest Pain n Chills n Sores Appetite Loss y Chest Pressure n Fatigue n Epistaxis Orthopnea n Sweats n Hearing loss Palpitations n GI: Tinnitus GERD y Vision quality RESP: Abdominal Pain y : SOB/PARKER n Nausea y Hematuria n Cough n Vomiting y Dysuria y Productive/Sputum n Hematemesis NEURO: Urgency n Hemoptysis n Diarrhea n Headaches n Frequency Wheezing n Constipation n Seizures n Times at night urinating Heamatochezia n Neuropathy n catheter present MSK: Melena Focal weakness n Hesitancy Focal Numbness n Incontinence Acute joint pain n Dizzy/Vertigo n Redness n Difficulty speaking n Heme/Lymph Swelling n Difficulty walking Lymphadenopathy Myalgia n Ataxia Chronic joint pain n Past Medical History: Diagnosis Date Alcohol withdrawal syndrome without complication ([facility]) 06/27/2022 Alcohol withdrawal with inpatient treatment, uncomplicated ([facility]) 03/15/2022 GERD (gastroesophageal reflux disease) History of pancreatitis 01/07/2023 Hypertension Pancreatitis Seizures ([facility]) SVT (supraventricular tachycardia) ([facility]) Tourette syndrome Past Surgical History: Procedure Laterality Date APPENDECTOMY No Known Allergies Medications Prior to Admission: Current Outpatient Medications Medication Instructions cloNIDine (CATAPRES) 0.1 mg, Oral, 3 times daily DULoxetine (CYMBALTA) 30 mg, Oral, Daily, Do not crush or chew. hydrOXYzine HCl (ATARAX) 50 mg, Oral, 2 times daily PRN melatonin 5 mg, Oral, Nightly PRN metoprolol succinate XL (TOPROL-XL) 50 mg, Oral, Daily, Do not crush or chew. omeprazole (PRILOSEC) 20 mg, Oral, Daily before breakfast, Do not crush or chew. risperiDONE (RISPERDAL) 1 mg, Oral, 2 times daily Social History Social History Tobacco Use Smoking status: Every Day Current packs/day: 1.00 Types: Cigarettes Smokeless tobacco: Never Substance Use Topics Alcohol use: Yes Comment: 2/5 vodka daily Family History Family History Problem Relation Name Age of Onset No Known Problems Mother No Known Problems Father Physical Exam Temp (24hrs), Av C (98.6 F), Min:37 C (98.6 F), Max:37 C (98.6 F) Body mass index is 33.25 kg/m .BMI Classification: Obese (BMI 30.0-39.9) BP (!) 152/99 Pulse 79 Temp 37 C (98.6 F) (Temporal) Resp 18 Ht 6' 1 (1.854 m) Wt 252 lb(114 kg) SpO2 96% BMI 33.25 kg/m Pulse Ox: SpO2 Av.8 % Min: 94 % Max: 97 % Supplemental O2: General appearance: He is sitting in bed, in some distress due to pain HEENT: Normal cephalic, atraumatic without obvious deformity. Pupils equal, round, and reactive to light. Extra ocular muscles intact. Conjunctivae/corneas clear. Neck: Supple, with full range of motion. No jugular venous distention. Trachea midline. No lymphadenopathy. Respiratory: Normal respiratory effort. Clear to auscultation, bilaterally without Rales/Wheezes/Rhonchi. Cardiovascular: Regular rate and rhythm with normal S1/S2 without murmurs, rubs or gallops. Abdomen:+ mid abd pain, mild distention Musculoskeletal: No clubbing, cyanosis or edema bilaterally. Full range of motion without deformity. Skin: Skin color, texture, turgor normal. No rashes or lesions. Neurologic: Neurovascularly intact without any focal sensory/motor deficits. Cranial nerves grosslyintact. Labs Admission on 11/17/2023 Component Date Value Auto WBC 11/17/2023 7.1 RBC 11/17/2023 5.21 Hemoglobin 11/17/2023 16.1 Hematocrit 11/17/2023 48.8 MCV 11/17/2023 93.7 MCH 11/17/2023 30.9 MCHC 11/17/2023 33.0 RDW 11/17/2023 15.4 (H) Platelets 11/17/2023 176 MPV 11/17/2023 9.8 nRBC 11/17/2023 0.0 Neutrophils Relative 11/17/2023 67.9 Lymphocytes Relative 11/17/2023 25.2 Monocytes Relative 11/17/2023 5.9 Eosinophils Relative 11/17/2023 0.3 Basophils Relative 11/17/2023 0.4 Immature Grans % 11/17/2023 0.3 Neutrophils Absolute 11/17/2023 4.9 Lymphocytes Absolute 11/17/2023 1.8 Monocytes Absolute 11/17/2023 0.4 Eosinophils Absolute 11/17/2023 0.0 Basophils Absolute 11/17/2023 0.0 Immature Grans Absolute 11/17/2023 0.0 SODIUM 11/17/2023 140 POTASSIUM 11/17/2023 4.0 CHLORIDE 11/17/2023 104 CARBON DIOXIDE 11/17/2023 18 (L) ANION GAP 11/17/2023 18 (H) UREA NITROGEN 11/17/2023 5 (L) CREATININE 11/17/2023 0.65 (L) GLUCOSE 11/17/2023 155 (H) CALCIUM 11/17/2023 9.1 AST (SGOT) 11/17/2023 249 (H) ALT 11/17/2023 148 (H) ALKALINE PHOSPHATASE 11/17/2023 145 (H) ALBUMIN 11/17/2023 4.8 BILIRUBIN, TOTAL 11/17/2023 1.0 TOTAL PROTEIN 11/17/2023 8.4 (H) eGFR 11/17/2023 >90.0 LIPASE 11/17/2023 >4,000 (H) Color, Urine 11/18/2023 Yellow Clarity, Urine 11/18/2023 Clear pH, Urine 11/18/2023 6.0 Leukocytes, Urine 11/18/2023 Negative Nitrite, Urine 11/18/2023 Negative Protein, Urine 11/18/2023 30 (A) Glucose, Urine 11/18/2023 Normal Bilirubin, Urine 11/18/2023 Negative Ketones, Urine 11/18/2023 10 (A) Urobilinogen, Urine 11/18/2023 Normal Blood, Urine 11/18/2023 Negative RBC, Urine 11/18/2023 0-2 WBC, Urine 11/18/2023 3-5 Squamous Epithelial, Uri* 11/18/2023 Negative Bacteria, Urine 11/18/2023 Negative Mucus, Urine 11/18/2023 Many (A) Hyaline Casts, Urine 11/18/2023 6-10 (A) SPECIFIC GRAVITY OF URIN* 11/18/2023 1.044 (H) AMPHETAMINE SCREEN 11/18/2023 Negative BARBITURATES SCREEN 11/18/2023 Negative BENZODIAZEPINE SCREEN 11/18/2023 Negative COCAINE METAB. SCREEN 11/18/2023 Negative METHADONE SCREEN 11/18/2023 Negative OPIATES SCREEN 11/18/2023 Positive OXYCODONE SCREEN 11/18/2023 Negative PHENCYCLIDINE SCREEN 11/18/2023 Negative ETHANOL IN SER/PLAS 11/17/2023 0.027 (H) SARS-CoV-2 Antigen 11/18/2023 Negative EKG Encounter Date: 10/16/23 ECG 12 lead Result Value Heart Rate 85 QRSD Interval 89 QT Interval 391 QTC Interval 465 P [place] 57 QRS [place] 9 T Wave [place] -9 ME Interval 158 Impression Sinus rhythm LVH by voltage Nonspecific T abnormalities, inferior leads - similar to prior EKG 03/15/22 Electronically Signed On 10-16-2023 02:06:16 EDT by Idris Danielson Assessment/Plan and Medical Decision Making Pancreatitis Severe per ct read Current etoh use Elevated lipase Ct of with with inflammation of the pancreatitis Mildly elevated lfts likely due to etoh No sign of biliary obstruction I suspect primarily due to EtOH, in the past he did have some hypertriglyceridemia Will admit hydrate aggressively provide pain control asked GI to see Will check triglyceride level Etoh abuse Patient does drink daily mainly vodka he did drink before coming in. He knows that he has a problem has a strong desire to quit but has difficulty in quitting Currently he has been placed on the CIWA protocol Ativan has been ordered may or may not order IV phenobarbital but will have addiction med see in consult Pain control Based on patient's elevated lipase and CT scan with significant inflammation. He likely is in severe pain IV pain medications have been ordered In the past he has been on Suboxone at home Currently we will cover him with IV pain medications of Dilaudid if needed may need to increase dose or consider [employer] He will be n.p.o. due to his severe pancreatitis but may have ice chips and sips of water with meds Hypertension I will convert his clonidine by mouth over to patch so he will not withdrawal IV Lopressor can be given if blood pressure indeed is high Prn hydralazine to be ordered I discussed the need for admission with the emergency provider. -DVT prophylaxis: [] Lovenox [] Heparin [x] SCDs [x] Encourage ambulation [] Already on Anticoagulation [] Pharmocologic prophylaxis on hold to due risk bleed/procedure [] Low risk, ambulatory [] Both pharmacologic and mechanical contraindicated 11/18/2023 Roro Valdivia [id number] Any scheduled follow up appointments Future Appointments Date Time Provider Department Center 11/18/2023 1:00 PM Nikky Escobar MD [facility] ACD- None 11/25/2023 1:00 PM Nikky Escobar MD [facility] ACD- None No emergency contact information on file. Portions of this note may be electronically transcribed. Please forward a copy of this H&P to the primary care physician. documented in this [facility]10-09-2024 Emergency department Note* Pushpa Crowley RN - 11/18/2023 3:17 AM EDT Pt reports that his withdrawal symptoms are better but that his abd pain is spreading, notified via secure chat at this time. Pushpa Crowley RN 11/18/23 0317 * Shruti Tapia RN - 11/18/2023 12:14 AM EDT Pt asked to hold off on taking phenobarbital d/t nausea. Shruti Tapia RN 11/18/23 0014 * Pushpa Crowley RN - 11/18/2023 12:02 AM EDT Per Pharmacy the thiamine and multivitamin mix is not available at [facility] and will be made at [facility] and brought over. Pushpa Crowley RN 11/18/23 0003 * Pushap Crowley RN - 11/17/2023 11:27 PM EDT Seizure pads placed on bed Pushpa Crowley RN 11/17/23 [id number] * Yvette Jett MD - 11/17/2023 11:10 PM EDT EMERGENCY DEPARTMENT ENCOUNTER Pt Name: Roro Valdivia Birthdate 1985 Date of evaluation: 11/17/2023 ED Provider: Eric Jett MD CHIEF COMPLAINT Chief Complaint Patient presents with Abdominal Pain Alcohol Problem HISTORY OF PRESENT ILLNESS (Location/Symptom, Timing/Onset, Context/Setting, Quality, Duration, Modifying Factors, Severity) Note limiting factors. I wore appropriate PPE for the entirety of this encounter. HPI Roro Valdivia is a 38 y.o. male who presents to the emergency department with chief complaint of epigastric abdominal pain and feeling as if he is in alcohol withdrawal. He states that his abdominal pain feels exactly like his pancreatitis flares. He states that he drinks 1/5 of vodka per day andlast drank roughly 3 hours ago and states that he feels like he is in alcohol withdrawal. He deniesany hallucinations. He is requesting assistance with alcohol detox. He endorses accompanying vomiting. Nursing Notes were reviewed. Limitations to history: None Outside historians: None REVIEW OF SYSTEMS Review of Systems Pertinent positives and negatives as per HPI. PAST MEDICAL HISTORY Past Medical History: Diagnosis Date Alcohol withdrawal syndrome without complication ([facility]) 06/27/2022 Alcohol withdrawal with inpatient treatment, uncomplicated ([facility]) 03/15/2022 GERD (gastroesophageal reflux disease) History of pancreatitis 01/07/2023 Hypertension Pancreatitis Seizures ([facility]) SVT (supraventricular tachycardia) ([facility]) Tourette syndrome SURGICAL HISTORY Past Surgical History: Procedure Laterality Date APPENDECTOMY CURRENT MEDICATIONS Previous Medications CLONIDINE (CATAPRES) 0.1 MG TABLET Take 1 tablet (0.1 mg) by mouth 3 times daily. DULOXETINE (CYMBALTA) [address] CAPSULE Take 1 capsule (30 mg) by mouth daily. Do not crush or chew. HYDROXYZINE HCL (ATARAX) 50 MG TABLET Take 1 tablet (50 mg) by mouth 2 times daily as needed for anxiety. MELATONIN 5 MG TABLET Take 1 tablet (5 mg) by mouth Nightly as needed (insomnia). METOPROLOL SUCCINATE XL (TOPROL-XL) 25 MG 24 HR TABLET Take 2 tablets (50 mg) by mouth daily. Do not crush or chew. OMEPRAZOLE (PRILOSEC) [address] CAPSULE Take 1 capsule (20 mg) by mouth every morning (before breakfast). Do not crush or chew. RISPERIDONE (RISPERDAL) 1 MG TABLET Take 1 tablet (1 mg) by mouth 2 times daily. ALLERGIES Patient has no known allergies. FAMILY HISTORY Family History Problem Relation Name Age of Onset No Known Problems Mother No Known Problems Father SOCIAL HISTORY Social History Socioeconomic History Marital status: Single Tobacco Use Smoking status: Every Day Current packs/day: 1.00 Types: Cigarettes Smokeless tobacco: Never Vaping Use Vaping status: Never Used Substance and Sexual Activity Alcohol use: Yes Comment: 2/5 vodka daily Drug use: Not Currently Types: Cocaine, Methamphetamines, Oxycodone, Fentanyl, Heroin, Benzodiazepines Sexual activity: Not Currently Social Determinants of Health Financial Resource Strain: High Risk (10/16/2023) Overall Financial Resource Strain (CARDIA) Difficulty of Paying Living Expenses: Very hard Food Insecurity: Food Insecurity Present (10/16/2023) Hunger Vital Sign Worried About Running Out of Food in the Last Year: Often true Ran Out of Food in the Last Year: Often true Transportation Needs: No Transportation Needs (10/16/2023) PRAPARE - Transportation Lack of Transportation (Medical): No Lack of Transportation (Non-Medical): No Physical Activity: Inactive (10/16/2023) Exercise Vital Sign Days of Exercise per Week: 0 days Minutes of Exercise per Session: 0 min Stress: Stress Concern Present (10/16/2023) [employer] - Occupational Stress Questionnaire Feeling of Stress : Very much Social Connections: Socially Isolated (10/16/2023) Social Connection and Isolation Panel [NHANES] Frequency of Communication with Friends and Family: Never Frequency of Social Gatherings with Friends and Family: Never Attends [employer] Services: Never Active Member of Clubs or Organizations: No Attends Club or Organization Meetings: Never Marital Status: Never Intimate Partner Violence: Not At Risk (10/16/2023) Humiliation, Afraid, Rape, and Kick questionnaire Fear of Current or Ex-Partner: No Emotionally Abused: No Physically Abused: No Sexually Abused: No Housing Stability: High Risk (10/16/2023) Housing Stability Vital Sign Unable to Pay for Housing in the Last Year: Yes Number of Times Moved in the Last Year: 2 Homeless in the Last Year: Yes SCREENINGS PHYSICAL EXAM ED Triage Vitals [11/17/23 2324] Temp Heart Rate Resp BP 37 C (98.6 F) 99 20 (!) 158/113 SpO2 Temp Source Heart Rate Source Patient Position 96 % Temporal Monitor -- BP Location FiO2 (%) -- -- Physical Exam Vitals and nursing note reviewed. Constitutional: General: He is not in acute distress. Appearance: He is well-developed. HENT: Head: Normocephalic and atraumatic. Eyes: Conjunctiva/sclera: Conjunctivae normal. Cardiovascular: Rate and Rhythm: Normal rate and regular rhythm. Heart sounds: No murmur heard. Pulmonary: Effort: Pulmonary effort is normal. No respiratory distress. Breath sounds: Normal breath sounds. Abdominal: Palpations: Abdomen is soft. Tenderness: There is abdominal tenderness in the right upper quadrant, epigastric area and left upper quadrant. Musculoskeletal: General: No swelling. Cervical back: Neck supple. Skin: General: Skin is warm and dry. Capillary Refill: Capillary refill takes less than 2 seconds. Neurological: Mental Status: He is alert. Psychiatric: Mood and Affect: Mood normal. DIAGNOSTIC RESULTS Procedures/EKG: Interpretation per the Radiologist below, if available at the time of this note: CT abdomen pelvis w contrast Final Result ED BEDSIDE ULTRASOUND: Performed by ED Physician - none LABS: Labs Reviewed CBC WITH AUTO DIFFERENTIAL - Abnormal Result Value Auto WBC 7.1 RBC 5.21 Hemoglobin 16.1 Hematocrit 48.8 MCV 93.7 MCH 30.9 MCHC 33.0 RDW 15.4 (*) Platelets 176 MPV 9.8 nRBC 0.0 Neutrophils Relative 67.9 Lymphocytes Relative 25.2 Monocytes Relative 5.9 Eosinophils Relative 0.3 Basophils Relative 0.4 Immature Grans % 0.3 Neutrophils Absolute 4.9 Lymphocytes Absolute 1.8 Monocytes Absolute 0.4 Eosinophils Absolute 0.0 Basophils Absolute 0.0 Immature Grans Absolute 0.0 COMPREHENSIVE METABOLIC PANEL - Abnormal SODIUM 140 POTASSIUM 4.0 CHLORIDE 104 CARBON DIOXIDE 18 (*) ANION GAP 18 (*) UREA NITROGEN 5 (*) CREATININE 0.65 (*) GLUCOSE 155 (*) CALCIUM 9.1 AST (SGOT) 249 (*) ALT 148 (*) ALKALINE PHOSPHATASE 145 (*) ALBUMIN 4.8 BILIRUBIN, TOTAL 1.0 TOTAL PROTEIN 8.4 (*) eGFR >90.0 LIPASE - Abnormal LIPASE >4,000 (*) ETHANOL - Abnormal ETHANOL IN SER/PLAS 0.027 (*) Narrative: NOTE: This result is for medical treatment only. Analysis performed using non- forensic procedures. SARS-COV-2 ANTIGEN - Normal SARS-CoV-2 Antigen Negative COMPLETE URINALYSIS WITH REFLEX TO CULTURE Narrative: The following orders were created for panel order Urinalysis Complete with reflex to Culture. Procedure Abnormality Status --------- ------ Complete Urinalysis[[id number]] In process Please view results for these tests on the individual orders. COMPLETE URINALYSIS DRUGS OF ABUSE All other labs were within normal range or not returned as of this dictation. EMERGENCY DEPARTMENT COURSE and DIFFERENTIAL DIAGNOSIS/MDM: Vitals: Vitals: 11/18/23 0036 11/18/23 0108 11/18/23 0140 11/18/23 0210 BP: (!) 142/95 (!) 152/99 Pulse: 100 76 79 Resp: 18 Temp: TempSrc: SpO2: 97% 94% 96% Weight: Height: The patient presented with a chief complaint of epigastric abdominal pain and alcohol withdrawal. Differential diagnoses including but not limited to: Presentation concerning for alcohol induced pancreatitis but cannot rule out biliary pathology or alcoholic gastritis. We ordered/reviewed CBC, CMP, urinalysis, lipase, drug screen, ethanol level, COVID antigen, CT abdomen pelvis I reviewed external PDMP demonstrating a total of 38 prescriptions, to include Suboxone, gabapentin, oxycodone Interpretations by me: Blood work significant for a lipase of greater than 4000. Ethanol level 0.027. CT concerning for severe acute pancreatitis. Patient care discussed with: Dr. Allen, [facility] hospitalist, who has agreed to accept the patient for admission. Social determinants of health affecting encounter: Alcohol abuse The patient will be admitted The patient is in agreement with this plan. Diagnoses as of 11/18/23 0237 Acute pancreatitis without infection or necrosis Medications PHENobarbital tablet 64.8 mg (64.8 mg Oral Not Given 11/17/23 7755) sodium chloride 0.9 % 1,000 mL with multiple vitamin 10 mL, thiamine 100 mg, folic acid 1 mg infusion (125 mL/hr IntraVENous New Bag 11/18/23 0144) morphine injection 4 mg (4 mg IntraVENous Given 11/18/23 0001) ondansetron (Zofran) injection 4 mg (4 mg IntraVENous Given 11/18/23 0000) LORazepam (Ativan) injection 2 mg (2 mg IntraVENous Given by Other 11/18/23 0032) ketorolac (Toradol) injection 15 mg (15 mg IntraVENous Given 11/18/23 0042) HYDROmorphone (Dilaudid) injection 1 mg (1 mg IntraVENous Given 11/18/23 0139) metoclopramide (Reglan) injection 10 mg (10 mg IntraVENous Given 11/18/23 0211) diphenhydrAMINE (BENADryl) injection 25 mg (25 mg IntraVENous Given 11/18/23 0215) iopamidol (Isovue-370) 76 % injection 75 mL (75 mL IntraVENous Given 11/18/23 0204) REVAL: CRITICAL CARE TIME Total Critical Care time was 35 minutes for administration of fluids for hydration and Ativan for alcohol withdrawal, as patient was vomiting and cannot tolerate oral phenobarbital, excluding separately reportable procedures. There was a high probability of clinically significant/life threatening deterioration in the patient's condition which required my urgent intervention. CONSULTS: None PROCEDURES: Unless otherwise noted below, none Procedures FINAL IMPRESSION 1. Acute pancreatitis without infection or necrosis DISPOSITION Admit 11/18/2023 02:36:04 AM PATIENT REFERRED TO: No follow-up provider specified. DISCHARGE MEDICATIONS: New Prescriptions No medications on file (Comment: Please note this report has been produced using speech recognition software and may contain errors related to that system including errors in grammar, punctuation, and spelling, as well as words and phrases that may be inappropriate. If there are any questions or concerns please feel freeto contact the dictating provider for clarification.) Eric Jett MD (electronically signed) Emergency Medicine Provider Yvette Jett MD 11/18/23 0237 * Roma Lutz RN - 11/17/2023 11:10 PM EDT Pt presents to ED c/o pancreatitis and alcohol withdraw. Pt states he normally drinks a 5th a day and last drink was several hours ago. Pt states he has hx of alcohol induced pancreatitis. documented in this [facility]09-25-2024 History of Present illness Narrative* Nikky Escobar MD - 11/04/2023 3:00 PM EDT Images from the original note were not included. MEDICATION ASSISTED TREATMENT FOLLOW UP VISIT Patient: Roro Valdivia __ Patient was identified and seen today via Telehealth by agreement and consent. I used the followingTelehealth technology: Audio and video capabilities. Patient location: Patient Location: Home. This patient encounter is appropriate and reasonable under the circumstances: transportation issues .The patient has been advised of the potential risks and limitations of this mode of treatment (inclu ding but not limited to the absence of in-person examination) and has agreed to be treated in a remote fashion in spite of them. Any and all of the patient's/patient's family's questions on this issue have been answered and I have made no promises or guarantees to the patient. The patient has also been advised to contact this office for worsening conditions or problems, and seek emergency medicaltreatment and/or call 911 if the patient deems either necessary. The patient stated that they are currently in the [facility]. If the patient is a minor, permission has been obtained by the parentor guardian for the patient to receive medical care at this visit. Chief complaint Subjective Roro Valdivia, a 38 y.o. male, who presents for a follow-up MAT appointment. -feels tics have been well controlled since increasing dose of risperdone 1mg BID -stomach pains overall improved -has a job interview at [employer] for [employer]- has a friend there who enjoys it; interview is Thursday at 3 -sleeping poorly, discussed behavioral changes to incorporate taking medication earlier in light ofwaking up with anxiety - will check in on this at next visit -in the last 2 weeks, drank 4 x - 3-4 beers each instance; typically in the AM when having anxiety -has used alcohol largely for feelings of panic -discussed plan to taper off effexor and start cymbalta 30mg instead Review of systems: Denies suicidal or homicidal ideation denies tactile auditory or visual hallucinations today All of systems ROS was completed and was negative unless stated above Objective Physical Exam Constitutional: General: He is not in acute distress. Appearance: He is not diaphoretic. HENT: Head: Normocephalic and atraumatic. Nose: No rhinorrhea. Cardiovascular: Rate and Rhythm: Normal rate. Pulmonary: Effort: Pulmonary effort is normal. No respiratory distress. Neurological: Mental Status: He is alert and oriented to person, place, and time. Comments: Various motor tics noted Psychiatric: Attention and Perception: He does not perceive auditory or visual hallucinations. Mood and Affect: Mood is not anxious or depressed. Behavior: Behavior is cooperative. Thought Content: Thought content does not include homicidal or suicidal ideation. Current Outpatient Medications Medication Sig Dispense Refill cloNIDine (Catapres) 0.1 MG tablet Take 1 tablet (0.1 mg) by mouth 3 times daily. 90 tablet 0 hydrOXYzine HCl (Atarax) 50 MG tablet Take 1 tablet (50 mg) by mouth 2 times daily as needed for anxiety. 60 tablet 1 melatonin 5 MG tablet Take 1 tablet (5 mg) by mouth Nightly as needed (insomnia). 30 tablet 1 metoprolol succinate XL (Toprol-XL) 25 MG 24 hr tablet Take 2 tablets (50 mg) by mouth daily. Do not crush or chew. (Patient taking differently: Take 50 mg by mouth daily. Do not crush or chew.) 30 tablet 3 omeprazole (PriLOSEC) [address] capsule Take 1 capsule (20 mg) by mouth every morning (before breakfast). Do not crush or chew. 30 capsule 0 risperiDONE (RisperDAL) 0.5 MG tablet Take 1 tablet (0.5 mg) by mouth 2 times daily. 60 tablet 0 venlafaxine XR (Effexor XR) 37.5 MG 24 hr capsule Take 1 capsule (37.5 mg) by mouth daily. Take with 1 capsule (75mg) by mouth daily for total dose of 112.5mg. Do not crush or chew. 30 capsule 1 No current facility-administered medications for this visit. OARRS: Reviewed and no inconsistencies or concerns. Assessment & Plan No diagnosis found. No orders of the defined types were placed in this encounter. 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 Continue 12-step meeting attendance (goal of 2 per week). 2. Actively communicate with sponsor. 3. Take medication as directed and report any negative side effects or missed doses. 4. Report any illicit drug use to either the briefcase sewer or myself/my staff. 5. Keep medicine out of the reach of children. 6. Follow-up with recommended level of care. Interventions in Session: 1. Discussed patient's progress in their 12-step program. 2. Discussed progress in recovery and overall well-being. 3. Discussed stressors/triggers for a potential relapse & related coping mechanisms. -Follow up in 2 week This patient was staffed with Dr. Orta. Nikky Escobar MD Addiction Medicine 11/04/2023 at 2:21 PM Associated attestation - Carlitos Orta MD - 11/05/2023 9:21 AM EDT Indirect Supervision Attestation During or immediately after this visit, I discussed this case with the treating fellow. Our discussion included the history obtained by the fellow, the fellow's exam findings, and the fellow's treatment plan. I agree with the assessment and plan as documented in the fellow's note (and any addendum's are listed below). Please see fellow s note for further details. This service has been performed by a fellow without the presence of a teaching physician under the primary care exception ([employer]). documented in this [facility]09-11-2024 History of Present illness Narrative* Nikky Escobar MD - 10/21/2023 3:00 PM EDT Images from the original note were not included. MEDICATION ASSISTED TREATMENT FOLLOW UP VISIT Patient: Roro Valdivia __ Chief complaint Subjective Roro Valdivia, a 38 y.o. male, who presents for a follow-up MAT appointment. 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 and sober -discussed interest in [place], which he would not like to follow with at this time -notes main motivation for his sobriety currently is fear of further health complications from alcohol/pancreatitis -has been sober from all other substances, but has been smoking more - increased from 0.5 cigs daily to a pack since sobriety from alcohol -plans to cut back, but not at this time -notes some improvement from melatonin, but dose now does not help much with sleep; amenable to increasing it -notes interest in trying a difficult antidepressant besides Effexor Review of systems: Denies suicidal or homicidal ideation denies tactile auditory or visual hallucinations today All of systems ROS was completed and was negative unless stated above Objective Physical Exam Constitutional: General: He is not in acute distress. Appearance: He is not diaphoretic. Comments: Smelling of alcohol HENT: Head: Normocephalic and atraumatic. Nose: No rhinorrhea. Cardiovascular: Rate and Rhythm: Normal rate. Pulmonary: Effort: Pulmonary effort is normal. No respiratory distress. Neurological: Mental Status: He is alert and oriented to person, place, and time. Comments: Various motor tics noted Psychiatric: Attention and Perception: He does not perceive auditory or visual hallucinations. Mood and Affect: Mood is not anxious or depressed. Behavior: Behavior is cooperative. Thought Content: Thought content does not include homicidal or suicidal ideation. Comments: Notably not anxious, calm throughout discussion, voicing depression and embaressment Current Outpatient Medications Medication Sig Dispense Refill cloNIDine (Catapres) 0.1 MG tablet Take 1 tablet (0.1 mg) by mouth 3 times daily. 90 tablet 0 hydrOXYzine HCl (Atarax) 50 MG tablet Take 1 tablet (50 mg) by mouth 2 times daily as needed for anxiety. 60 tablet 1 melatonin 5 MG tablet Take 1 tablet (5 mg) by mouth Nightly as needed (insomnia). 30 tablet 1 metoprolol succinate XL (Toprol-XL) 25 MG 24 hr tablet Take 2 tablets (50 mg) by mouth daily. Do not crush or chew. (Patient taking differently: Take 50 mg by mouth daily. Do not crush or chew.) 30 tablet 3 omeprazole (PriLOSEC) [address] capsule Take 1 capsule (20 mg) by mouth every morning (before breakfast). Do not crush or chew. 30 capsule 0 risperiDONE (RisperDAL) 0.5 MG tablet Take 1 tablet (0.5 mg) by mouth 2 times daily. 60 tablet 0 venlafaxine XR (Effexor XR) 37.5 MG 24 hr capsule Take 1 capsule (37.5 mg) by mouth daily. Take with 1 capsule (75mg) by mouth daily for total dose of 112.5mg. Do not crush or chew. 30 capsule 1 No current facility-administered medications for this visit. OARRS: Reviewed and no inconsistencies or concerns. Assessment & Plan 1. Severe opioid use disorder (HCC) 2. Severe alcohol use disorder (HCC) 3. Other intermediate (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 Orders Placed This Encounter Procedures Medication Assisted Treatment Panel (MATP) Standing Status: Future Number of Occurrences: 1 Standing Expiration Date: 10/20/2024 Lipase Standing Status: Future Number of Occurrences: 1 Standing Expiration Date: 10/20/2024 Severe opioid use disorder (HCC) Severe Alcohol Use Disorder BZD use disorder in remission Stimulant use disorder in remission Nicotine Use disorder -discontinued suboxone abruptly, discussed not restarting this -sober form all substances x 6 days -ordered lipase to continue trending, PCP also ordered CMP, CBC to follow up on as well as TSH, lipid panel, and testosterone MDD RODRIGUEZ Tourette Disorder -increase risperidone to 1mg BID for Tourettes, increase prn melatonin to 10mg nightly for insomnia -continue effexor to 37.5mg daily for mood and anxiety, clonidine 0.1mg TID for anxiety, and [id number] prn for anxiety Patient Goals: 1. Continue 12-step meeting attendance (goal of 2 per week). 2. Actively communicate with sponsor. 3. Take medication as directed and report any negative side effects or missed doses. 4. Report any illicit drug use to either the briefcase sewer or myself/my staff. 5. Keep medicine out of the reach of children. 6. Follow-up with recommended level of care. Interventions in Session: 1. Discussed patient's progress in their 12-step program. 2. Discussed progress in recovery and overall well-being. 3. Discussed stressors/triggers for a potential relapse & related coping mechanisms. -Follow up in 2 week This patient was staffed with Dr. Orta. Nikky Escobar MD Addiction Medicine 10/22/2023 at 3:25 PM Cosigned by Carlitos Orta MD at 10/22/2023 4:26 PM EDT Associated attestation - Carlitos Orta MD - 10/22/2023 4:26 PM EDT Indirect Supervision Attestation During or immediately after this visit, I discussed this case with the treating fellow. Our discussion included the history obtained by the fellow, the fellow's exam findings, and the fellow's treatment plan. I agree with the assessment and plan as documented in the fellow's note (and any addendum's are listed below). Please see fellow s note for further details. This service has been performed by a fellow without the presence of a teaching physician under the primary care exception (GE Modifier). documented in this [facility]09-08-2024 Hospital course Narrative* Hunter Prajapati MD - 10/18/2023 2:28 PM EDT Discharge Summary Roro Valdivia : 1985 ADMIT DATE: 10/16/2023 DISCHARGE DATE: 10/18/2023 PRIMARY CARE PHYSICIAN: Tam Hughes VISIT STATUS: Admission CODE STATUS: Full Code DISCHARGE DIAGNOSES: Principal Problem: Acute recurrent pancreatitis HOSPITAL COURSE: Patient was initially admitted for acute pancreatitis. He was started on IV fluids and had a right upper quadrant ultrasound that was unremarkable for gallstones but showed fatty infiltration of the liver. Etiology of pancreatitis thought to be secondary to alcohol use as patient recently relapsed and used alcohol on weekend. Patient is significantly improved after given IV fluids and couple days of bowel rest. Patient was able to tolerate solid diet and did not need any further pain medications so he was discharged home in stable condition. SIGNIFICANT DIAGNOSTIC STUDIES: Right upper quadrant ultrasound CONSULTANTS: None RECOMMENDED NEXT STEPS: Follow-up primary care provider DISCHARGE MEDICATIONS: Medication List CONTINUE taking these medications cloNIDine 0.1 MG tablet Commonly known as: Catapres Take 1 tablet (0.1 mg) by mouth 3 times daily. hydrOXYzine HCl 50 MG tablet Commonly known as: Atarax Take 1 tablet (50 mg) by mouth 2 times daily as needed for anxiety. melatonin 5 MG tablet Take 1 tablet (5 mg) by mouth Nightly as needed (insomnia). metoprolol succinate XL 25 MG 24 hr tablet Commonly known as: Toprol-XL Take 2 tablets (50 mg) by mouth daily. Do not crush or chew. omeprazole [address] capsule Commonly known as: PriLOSEC Take 1 capsule (20 mg) by mouth every morning (before breakfast). Do not crush or chew. ondansetron 4 MG tablet Commonly known as: Zofran Take 1 tablet (4 mg) by mouth in the morning and 1 tablet (4 mg) at noon and 1 tablet (4 mg) in theevening and 1 tablet (4 mg) before bedtime. Do all this for 3 days. oxyCODONE 5 MG immediate release tablet Commonly known as: Roxicodone Take 1 tablet (5 mg) by mouth every 6 hours as needed for severe pain (7-10) for up to 3 days. risperiDONE 0.5 MG tablet Commonly known as: RisperDAL Take 1 tablet (0.5 mg) by mouth 2 times daily. venlafaxine XR 37.5 MG 24 hr capsule Commonly known as: Effexor XR Take 1 capsule (37.5 mg) by mouth daily. Take with 1 capsule (75mg) by mouth daily for total dose of 112.5mg. Do not crush or chew. STOP taking these medications buprenorphine-naloxone 8-2 MG per sublingual film Commonly known as: Suboxone DIET: Adult diet Regular ACTIVITY: No restriction. COMPLEXITY OF FOLLOW UP: [x] Moderate Complexity: follow up within 7-14 calendar days (85718) [] Severe Complexity: follow up within 7 calendar days (60321) FOLLOW UP TESTING, PENDING RESULTS OR REFERRALS AT TRANSITIONAL CARE VISIT: [] Yes [x] No PENDING STUDIES: None DISPOSITION: Home FACILITY/HOME CARE AGENCY NAME: INSTRUCTIONS TO MA/SW: Please call patient on day after discharge (must document patient contacted within 2 business days of discharge). FOLLOW UP QUESTIONS FOR MA/SW: 1. Did you get medications filled and taking them as instructed from discharge? 2. Are you following your discharge instructions from your hospital stay? 3. Please confirm patient is scheduled for a follow up appointment within the above time frame. DISCHARGE TIME: > 30 minutes SIGNED: Hunter Prajapati MD 10/18/2023, 2:28 PM documented in this [facility]09-08-2024 Nurse Note* Benita Mccrary RN - 10/18/2023 1:[address] Hunter [place] in to see the patient and says the patient can drive himself home. Patient left the floor ambulatory with the NA Day [id number] Nurse Note* Benita Mccrary RN - 10/18/2023 1:[address] Hunter [place] in to see the patient and says the patient can drive himself home. Patient left the floor ambulatory with the NA Day * Benita Mccrary RN - 10/18/2023 1:40 PM EDT Discharge instructions given. Patient verbalized understanding * Benita Mccrary RN - 10/18/2023 1:27 PM EDT Patient says he is driving himself home. ALEXANDRA Prajapati notified via secure chat [facility] this [id number] Nurse Note* Benita Mccrary RN - 10/18/2023 1:40 PM EDT Discharge instructions given. Patient verbalized understanding [id number] Nurse [facility]* Benita Mccrary RN - 10/18/2023 1:27 PM EDT Patient says he is driving himself home. ALEXANDRA Prajapati notified via secure chat [id number] History of Present illness Narrative* Lyly Jason - 10/18/2023 8:23 AM EDT Nutrition rescreen completed. Patient is NPO/Clear liquid >3 days. Refer to Dietitian. * Hunter Prajapati MD - 10/17/2023 8:00 AM EDT Hospitalist Progress Note 10/17/2023 Subjective: Admit Date: 10/16/2023 PCP: Tam Hughes DO Room#: 232-03/232-03 A BRIEF HOSPITAL COURSE: Roro is a 38 y.o. male with past medical history below who presented with chief complaint listed ofabdominal pain, nausea and vomiting and admitted for Pancreatitis. He has previous admission for pancreatitis attributed to alcohol. Interval History: - No overnight issues -Patient seen at bedside. Appears to be comfortable. Denies any current nausea or vomiting. Says heis feeling much better. Still has some abdominal pain. Says he has not had anything to eat for about 4 days now. No other acute complaints. - Case and plan discussed with patient and bedside nurse. All questions answered. Adult diet Clear liquid 24HR INTAKE/OUTPUT: Intake/Output Summary (Last 24 hours) at 10/17/2023 0801 Last data filed at 10/16/2023 2133 Gross per 24 hour Intake 1675.42 ml Output -- Net 1675.42 ml Past Medical History: Past Medical History: Diagnosis Date Alcohol withdrawal syndrome without complication ([facility]) 06/27/2022 Alcohol withdrawal with inpatient treatment, uncomplicated ([facility]) 03/15/2022 GERD (gastroesophageal reflux disease) History of pancreatitis 01/07/2023 Hypertension Pancreatitis Seizures ([facility]) SVT (supraventricular tachycardia) ([facility]) Tourette syndrome LABS: CBC: Recent Labs 10/16/23 0201 10/16/23 1324 WBC 8.9 6.9 RBC 5.05 4.94 HGB 15.6 15.4 HCT 47.2 46.9 MCV 93.5 94.9 RDW 14.7 14.5 PLT 208 189 BMP: Recent Labs 10/16/23 0201 10/16/23 1324 NA 138 141 K 4.0 4.1 CL 100 103 CO2 25 28 BUN 5* 6* CREATININE 0.62* 0.68 GLUCOSE 126* 104* CALCIUM 9.7 9.6 ANIONGAP 13 9 LIVER PROFILE: Recent Labs 10/16/23 0201 10/16/23 1324 AST 235* 149* ALT 173* 159* BILITOT 0.8 1.1 ALKPHOS 158* 158* PROT 8.8* 8.1 PT/INR: No results for input(s): PROTIME, INR in the last 72 hours. CARDIAC ENZYMES: Recent Labs 10/16/23 0201 TROPONINI 0.016 Procalcitonin: No results found for: PROCAL COVID-19 PCR: No results for input(s): COVID19 in the last 72 hours. Objective: Vitals: BP 113/78 (BP Location: Left arm, Patient Position: Lying) Pulse 65 Temp 36.5 C (97.7 F) (Temporal) Resp 18 Ht 6' 0.84 (1.85 m) Wt 250 lb (113 kg) SpO2 (!) 89% BMI 33.13 kg/m Pulse Ox: SpO2 Av.4 % Min: 89 % Max: 100 % Supplemental O2: Physical Exam Constitutional: Appearance: Normal appearance. He is not ill-appearing. HENT: Head: Normocephalic and atraumatic. Nose: Nose normal. Mouth/Throat: Mouth: Mucous membranes are moist. Eyes: Extraocular Movements: Extraocular movements intact. Pupils: Pupils are equal, round, and reactive to light. Cardiovascular: Rate and Rhythm: Normal rate and regular rhythm. Pulses: Normal pulses. Heart sounds: Normal heart sounds. Pulmonary: Effort: Pulmonary effort is normal. No respiratory distress. Breath sounds: Normal breath sounds. No wheezing or rhonchi. Abdominal: General: Abdomen is flat. Palpations: Abdomen is soft. Tenderness: There is abdominal tenderness. Musculoskeletal: General: Normal range of motion. Cervical back: Normal range of motion and neck supple. Right lower leg: No edema. Left lower leg: No edema. Skin: General: Skin is warm and dry. Neurological: General: No focal deficit present. Mental Status: He is alert and oriented to person, place, and time. Medications: Scheduled PRN cloNIDine, 0.1 mg, Oral, TID enoxaparin, 40 mg, SubCUTAneous, Daily folic acid, 1 mg, Oral, Daily metoprolol succinate XL, 50 mg, Oral, Daily pantoprazole, 40 mg, Oral, qAM AC risperiDONE, 0.5 mg, Oral, BID sodium chloride 0.9%, 10 mL, IntraVENous, 2 times per day thiamine, 100 mg, Oral, Daily venlafaxine XR, 37.5 mg, Oral, Daily PRN medications: aluminum & magnesium hydroxide-simethicone, HYDROmorphone, hydrOXYzine pamoate, LORazepam OR LORazepam OR LORazepam OR LORazepam OR LORazepam OR LORazepam, melatonin, naloxone, ondansetron ODT OR ondansetron, polyethylene glycol (PEG) 3350, simethicone, sodium chloride, sodium chloride 0.9% Continuous lactated Ringer's, 150 mL/hr, Last Rate: 150 mL/hr (10/17/23 0640) Assessment Acute, acute on chronic, unstable/uncontrolled chronic problems/diagnoses: Acute pancreatitis 2/2 to alcohol use. Right upper quadrant abdominal ultrasound completed showing fatty infiltration of liver.. No evidence of gallstones Alcohol Use Disorder-says he drank alcohol again during holiday weekend but has cut back significantly. Addiction medicine consult History of severe opiate use-still recently on buprenorphine he claims he has discontinued it, reviewed his addiction medicine note Transaminitis probably from alcoholic liver disease-ultrasound without any obstructive pathology Stable chronic problems affecting care, new non-acute diagnoses: # GERD # Anxiety: Continue Risperdal Plan As a result of the above findings & factors, the following mgmt was pursued: -Continue IV fluids. Trial clear diet today and advance as tolerated. Patient says he still feels like he cannot eat solids at this point. -Addiction medicine consult for alcohol use disorder. Appreciate recs. - am labs, replace lytes prn - PT/OT/CM/SW Delirium precautions: increase activity DVT prophylaxis: enoxaparin and encourage ambulation Advance Directive: Full Code Complexity: Acute illness or injury posing a threat to life or body function (HIGH). Risk: Admission to hospital-level care was considered or occurred (HIGH). Anticipated Discharge - Date - 10/18/2023 - Location - Home - Pending the following -improvement in pancreatitis symptoms Total time spent (which include face to face and non face to face encounters) : 40 minutes No emergency contact information on file. Hunter Prajapati MD Division of Hospitalist Medicine Acute care [facility] documented in this [facility]09-07-2024 Plan of care note* Care Plan - Rosita Alexander RN - 10/17/2023 9:51 PM EDT Problem: Knowledge Deficit Goal: Patient/family/caregiver demonstrates understanding of disease process, treatment plan, medications, and discharge instructions 10/17/20232150 by Rosita Alexander RN Outcome: Progressing 10/17/20232149 by Rosita Alexander RN Outcome: Progressing Problem: Gastrointestinal - Adult Goal: Maintains or returns to baseline bowel function 10/17/20232150 by Rosita Alexander RN Outcome: Progressing 10/17/20232149 by Rosita Alexander RN Outcome: Progressing [id number] Miscellaneous Notes* Care Plan - Rosita Alexander RN - 10/17/2023 9:51 PM EDT Problem: Knowledge Deficit Goal: Patient/family/caregiver demonstrates understanding of disease process, treatment plan, medications, and discharge instructions 10/17/20232150 by Rosita Alexander RN Outcome: Progressing 10/17/20232149 by Rosita Alexander RN Outcome: Progressing Problem: Gastrointestinal - Adult Goal: Maintains or returns to baseline bowel function 10/17/20232150 by Rosita Alexander RN Outcome: Progressing 10/17/20232149 by Rosita Alexander RN Outcome: Progressing * Care Plan - Rosita Alexander RN - 10/17/2023 9:50 PM EDT Problem: Urinary Incontinence Goal: Perineal skin integrity is maintained or improved Outcome: Progressing Problem: Potential for Compromised Skin Integrity Goal: Skin Integrity is Maintained or Improved Outcome: Progressing * Care Plan - Yolanda Moreau RN - 10/16/2023 5:25 PM EDT Problem: Potential for Compromised Skin Integrity Goal: Skin Integrity is Maintained or Improved Outcome: Progressing Flowsheets (Taken 10/16/2023 172) Skin integrity is maintained or improved: Assess and monitor skin integrity Collaborate with interdisciplinary team and initiate plans and interventions as needed Relieve pressure to bony prominences Keep skin clean and dry Problem: Gastrointestinal - Adult Goal: Maintains or returns to baseline bowel function Outcome: Progressing Flowsheets (Taken 10/16/2023 172) Maintains or returns to baseline bowel function: Assess bowel function Administer IV fluids as ordered to ensure adequate hydration Encourage mobilization and activity Encourage oral fluids to ensure adequate hydration Administer ordered medications as needed The patient is Moderately Stable - Low risk of patient condition declining or worsening The patient's goals for the shift include Decrease pain The clinical goals for the shift include Pain control documented in this [facility]09-07-2024 Plan of care note* Care Plan - Rosita Alexander RN - 10/17/2023 9:50 PM EDT Problem: Urinary Incontinence Goal: Perineal skin integrity is maintained or improved Outcome: Progressing Problem: Potential for Compromised Skin Integrity Goal: Skin Integrity is Maintained or Improved Outcome: Progressing [id number] Plan of care note* Care Plan - Yolanda Moreau RN - 10/16/2023 5:25 PM EDT Problem: Potential for Compromised Skin Integrity Goal: Skin Integrity is Maintained or Improved Outcome: Progressing Flowsheets (Taken 10/16/20231723) Skin integrity is maintained or improved: Assess and monitor skin integrity Collaborate with interdisciplinary team and initiate plans and interventions as needed Relieve pressure to bony prominences Keep skin clean and dry Problem: Gastrointestinal - Adult Goal: Maintains or returns to baseline bowel function Outcome: Progressing Flowsheets (Taken 10/16/2023 1724) Maintains or returns to baseline bowel function: Assess bowel function Administer IV fluids as ordered to ensure adequate hydration Encourage mobilization and activity Encourage oral fluids to ensure adequate hydration Administer ordered medications as needed The patient is Moderately Stable - Low risk of patient condition declining or worsening The patient's goals for the shift include Decrease pain The clinical goals for the shift include Pain control [id number] History and physical note* Steph Castano MD - 10/16/2023 3:18 PM EDT Attending History and Physical Admit Date: 10/16/2023 PCP: Tam Hughes DO CHIEF COMPLAINT: Inpatient Reason for Admission: Pancreatitis History Obtained From: patient and chart review HISTORY OF PRESENT ILLNESS: Roro is a 38 y.o. male with past medical history below who presents with chief complaint listed above. 38-year-old male patient with history of alcohol use and opiate use is admitted with abdominal pain, nausea and vomiting. Reportedly he presented earlier in the midnight but did not stay back for admission. He came back for admission now with increased pain and nausea and vomiting. He has had pancreatitis in the past attributed to alcohol, no recent trauma and no recent medication changes, He reiterates that he is off of Suboxone, and he has been sober, he does smoke 1 pack a day of tobacco cigarettes Denies any other recreational drug use Reports no tremors or diarrhea Denies chest pain, sob, abdominal pain, nausea, vomiting, diarrhea, constipation, fevers, or chills. Will admit for further evaluation and management. Past Medical History: Past Medical History: Diagnosis Date Alcohol withdrawal syndrome without complication ([facility]) 06/27/2022 Alcohol withdrawal with inpatient treatment, uncomplicated ([facility]) 03/15/2022 GERD (gastroesophageal reflux disease) History of pancreatitis 01/07/2023 Hypertension Pancreatitis Seizures ([facility]) SVT (supraventricular tachycardia) ([facility]) Tourette syndrome Past Surgical History: Past Surgical History: Procedure Laterality Date APPENDECTOMY Social History: Social History Socioeconomic History Marital status: Single Spouse name: Not on file Number of children: Not on file Years of education: Not on file Highest education level: Not on file Occupational History Not on file Tobacco Use Smoking status: Every Day Current packs/day: 1.00 Types: Cigarettes Smokeless tobacco: Never Vaping Use Vaping status: Never Used Substance and Sexual Activity Alcohol use: Yes Comment: 03/16 vodka daily Drug use: Not Currently Types: Cocaine, Methamphetamines, Oxycodone, Fentanyl, Heroin, Benzodiazepines Sexual activity: Not Currently Other Topics Concern Not on file Social History Narrative Not on file Social Determinants of Health Financial Resource Strain: High Risk (08/11/2023) Overall Financial Resource Strain (CARDIA) Difficulty of Paying Living Expenses: Very hard Food Insecurity: Food Insecurity Present (08/11/2023) Hunger Vital Sign Worried About Running Out of Food in the Last Year: Often true Ran Out of Food in the Last Year: Often true Transportation Needs: No Transportation Needs (08/11/2023) PRAPARE - Transportation Lack of Transportation (Medical): No Lack of Transportation (Non-Medical): No Recent Concern: Transportation Needs - Unmet Transportation Needs (06/26/2023) PRAPARE - Transportation Lack of Transportation (Medical): Yes Lack of Transportation (Non-Medical): Yes Physical Activity: Inactive (08/11/2023) Exercise Vital Sign Days of Exercise per Week: 0 days Minutes of Exercise per Session: 0 min Stress: Stress Concern Present (08/11/2023) [employer] - Occupational Stress Questionnaire Feeling of Stress : Very much Social Connections: Socially Isolated (08/11/2023) Social Connection and Isolation Panel [NHANES] Frequency of Communication with Friends and Family: Never Frequency of Social Gatherings with Friends and Family: Never Attends [employer] Services: Never Active Member of Clubs or Organizations: No Attends Club or Organization Meetings: Never Marital Status: Never Intimate Partner Violence: Not At Risk (08/11/2023) Humiliation, Afraid, Rape, and Kick questionnaire Fear of Current or Ex-Partner: No Emotionally Abused: No Physically Abused: No Sexually Abused: No Housing Stability: High Risk (08/11/2023) Housing Stability Vital Sign Unable to Pay for Housing in the Last Year: Yes Number of Times Moved in the Last Year: 0 Homeless in the Last Year: Yes Family History: Family History Problem Relation Name Age of Onset No Known Problems Mother No Known Problems Father Medications Prior to Admission: Current Facility-Administered Medications on File Prior to Encounter Medication Dose Route Frequency Provider Last Rate Last Admin [COMPLETED] ketorolac (Toradol) injection 15 mg 15 mg IntraVENous Once Idris Danielson MD 15mg at 10/16/23 0155 [COMPLETED] morphine injection 4 mg 4 mg IntraVENous Once Idris Danielson MD 4 mg at 10/16/23 0316 [COMPLETED] ondansetron (Zofran) injection 4 mg 4 mg IntraVENous Once Idris Danielson MD 4 mg at 10/16/23 0155 [COMPLETED] sodium chloride 0.9 % bolus 1,000 mL 1,000 mL IntraVENous Once Idris Danielson MD Stopped at 10/16/23 0235 Current Outpatient Medications on File Prior to Encounter Medication Sig Dispense Refill buprenorphine-naloxone (Suboxone) 8-2 MG per sublingual film Place 1 Film under the tongue daily for 14 days. 14 Film 0 buprenorphine-naloxone (Suboxone) 8-[address] 1 tablet under the tongue daily. 14 tablet0 cloNIDine (Catapres) 0.1 MG tablet Take 1 tablet (0.1 mg) by mouth 3 times daily. 90 tablet 0 hydrOXYzine HCl (Atarax) 50 MG tablet Take 1 tablet (50 mg) by mouth 2 times daily as needed for anxiety. 60 tablet 1 melatonin 5 MG tablet Take 1 tablet (5 mg) by mouth Nightly as needed (insomnia). 30 tablet 1 metoprolol succinate XL (Toprol-XL) 25 MG 24 hr tablet Take 2 tablets (50 mg) by mouth daily. Do not crush or chew. (Patient taking differently: Take 50 mg by mouth daily. Do not crush or chew.) 30 tablet 3 omeprazole (PriLOSEC) [address] capsule Take 1 capsule (20 mg) by mouth every morning (before breakfast). Do not crush or chew. 30 capsule 0 ondansetron (Zofran) 4 MG tablet Take 1 tablet (4 mg) by mouth in the morning and 1 tablet (4 mg) at noon and 1 tablet (4 mg) in the evening and 1 tablet (4 mg) before bedtime. Do all this for 3 days. 12 tablet 0 oxyCODONE (Roxicodone) 5 MG immediate release tablet Take 1 tablet (5 mg) by mouth every 6 hours asneeded for severe pain (7-10) for up to 3 days. 12 tablet 0 risperiDONE (RisperDAL) 0.5 MG tablet Take 1 tablet (0.5 mg) by mouth 2 times daily. 60 tablet 0 venlafaxine XR (Effexor XR) 37.5 MG 24 hr capsule Take 1 capsule (37.5 mg) by mouth daily. Take with 1 capsule (75mg) by mouth daily for total dose of 112.5mg. Do not crush or chew. 30 capsule 1 Allergies: No Known Allergies REVIEW OF SYSTEMS: Constitutional: Negative for fever, chills, positive for activity change HEENT: Negative for congestion, postnasal drip and sneezing. Eyes: Negative for itching and visual disturbance. Respiratory: Negative for apnea, cough, choking, chest tightness, shortness of breath, wheezing andstridor. Cardiovascular: Negative for chest pain. Gastrointestinal: Positive for nausea vomiting and abdominal pain and negative for diarrhea and blood in stool Genitourinary: Negative for dysuria, frequency and flank pain. Musculoskeletal: Negative for myalgias and joint swelling. Skin: Negative for rash. Neurological: Negative for dizziness, tremors, seizures, syncope, facial asymmetry, speech difficulty, weakness, numbness and headaches. Psychiatric/Behavioral: Negative for suicidal ideas, behavioral problems, self- injury and dysphoricmood. Vitals: BP (!) 157/91 (BP Location: Left arm, Patient Position: Sitting) Pulse 71 Temp 36.9 C (98.4 F) (Temporal) Resp 20 SpO2 96% BMI Classification: Morbidly Obese (>40.0) Pulse Ox: SpO2 Av.6 % Min: 96 % Max: 98 % Supplemental O2: PHYSICAL EXAM: General appearance: Appears anxious in mild distress appears stated age and cooperative with exam. HEENT: Normal cephalic, atraumatic without obvious deformity. Pupils equal, round, and reactive to light. Extra ocular muscles intact. Conjunctivae/corneas clear. Neck: Supple, with full range of motion. No jugular venous distention. Respiratory: Normal respiratory effort. Clear to auscultation, bilaterally without Rales/Wheezes/Rhonchi. Cardiovascular: Regular rate and rhythm with normal S1/S2 without murmurs, rubs or gallops. Abdomen: Mild epigastric tenderness with normal bowel sounds and no distention no guarding or rigidity musculoskeletal: No clubbing, cyanosis or edema bilaterally. Full range of motion without deformity, +2 peripheral pulses in all extremities. Skin: Skin color, texture, turgor normal. No rashes or lesions. Neurologic: Neurovascularly intact without any focal sensory/motor deficits. Cranial nerves: II-XIIintact, grossly non-focal. Psychiatric: Alert and oriented, thought content appropriate, normal insight. DATA: CBC: Recent Labs 10/16/23 0201 10/16/23 1324 WBC 8.9 6.9 RBC 5.05 4.94 HGB 15.6 15.4 HCT 47.2 46.9 MCV 93.5 94.9 RDW 14.7 14.5 PLT 208 189 BMP: Recent Labs 10/16/23 0201 10/16/23 1324 NA 138 141 K 4.0 4.1 CL 100 103 CO2 25 28 BUN 5* 6* CREATININE 0.62* 0.68 GLUCOSE 126* 104* CALCIUM 9.7 9.6 ANIONGAP 13 9 LIVER PROFILE: Recent Labs 10/16/23 0201 10/16/23 1324 AST 235* 149* ALT 173* 159* BILITOT 0.8 1.1 ALKPHOS 158* 158* PROT 8.8* 8.1 PT/INR: No results for input(s): PROTIME, INR in the last 72 hours. CARDIAC ENZYMES: Recent Labs 10/16/23 0201 TROPONINI 0.016 Lab Results Component Value Date LIPASE 1,185 (H) 10/16/2023 Procalcitonin: No results found for: PROCAL Urine Culture: No results found for this or any previous visit. COVID-19 PCR: No results for input(s): COVID19 in the last 72 hours. I reviewed: [x] laboratory results [x] radiographic results At the time of today's encounter. Pt was advised of the results. IMPRESSION: Acute pancreatitis probably from alcohol use Alcohol abuse-addiction medicine consult History of severe opiate use-still recently on buprenorphine he claims he has discontinued it, reviewed his addiction medicine note Transaminitis probably from alcoholic liver disease-ultrasound without any obstructive pathology GERD Anxiety-continue his Risperdal Medical Decision Making: -38-year-old male patient is admitted with acute pancreatitis. This episode is probably triggered by alcohol use over the holiday weekend. Consulted addiction medicine and placed CIWA orders for alcohol withdrawal. He does not report any tremors, does complain of epigastric pain but over the last 24 hours his lipase has significantly decreased from 4000 to 1137,, continue with IV fluids, bowel rest, recheck lipase in a.m. Dilaudid for pain management, advance diet tomorrow as tolerated -PT/OT eval/increase activity -am labs, replace lytes prn -vitals per routine -home meds as ordered -DVT prophylaxis: [] Lovenox [] Heparin [] SCDs [x] Encourage ambulation [] Already on Anticoagulation Anticipated Discharge - Date - 10/17/2023 - Location - Home - Pending the following -resolution of pancreatitis Total time spent (which include face to face and non face to face encounters) : minutes Toxic drug monitoring/narrow therapeutic index drug monitoring : # Drug name : Dilaudid # Route administered : IV # Method of monitoring : Daily monitoring No emergency contact information on file. Code status: Full Code -see below for additional orders, further recommendations to follow Orders Placed This Encounter Procedures US abdomen limited Lipase CBC Comprehensive metabolic panel Triglycerides Adult diet Clear liquid Vital Signs Notify patient's primary care provider of admission Activity Up With Assistance Telemetry monitoring for Other Indication; Pancreatitis and alcohol WD Notify Provider (Other) Alcohol and or drug assessment Search patient Full code Inpatient consult to Addiction Medicine--[facility] Inpatient consult to Wound Care Initiate Oxygen Therapy Protocol Admit to inpatient Seizure precautions Fall precautions Skin care precautions Please forward a copy of this H&P to the patient's PCP. Thank you. [employer] Work Phone: [phone] History and physical note* Steph Castano MD - 10/16/2023 3:18 PM EDT Attending History and Physical Admit Date: 10/16/2023 PCP: Tam Hughes DO CHIEF COMPLAINT: Inpatient Reason for Admission: Pancreatitis History Obtained From: patient and chart review HISTORY OF PRESENT ILLNESS: Roro is a 38 y.o. male with past medical history below who presents with chief complaint listed above. 38-year-old male patient with history of alcohol use and opiate use is admitted with abdominal pain, nausea and vomiting. Reportedly he presented earlier in the midnight but did not stay back for admission. He came back for admission now with increased pain and nausea and vomiting. He has had pancreatitis in the past attributed to alcohol, no recent trauma and no recent medication changes, He reiterates that he is off of Suboxone, and he has been sober, he does smoke 1 pack a day of tobacco cigarettes Denies any other recreational drug use Reports no tremors or diarrhea Denies chest pain, sob, abdominal pain, nausea, vomiting, diarrhea, constipation, fevers, or chills. Will admit for further evaluation and management. Past Medical History: Past Medical History: Diagnosis Date Alcohol withdrawal syndrome without complication ([facility]) 06/27/2022 Alcohol withdrawal with inpatient treatment, uncomplicated ([facility]) 03/15/2022 GERD (gastroesophageal reflux disease) History of pancreatitis 01/07/2023 Hypertension Pancreatitis Seizures ([facility]) SVT (supraventricular tachycardia) ([facility]) Tourette syndrome Past Surgical History: Past Surgical History: Procedure Laterality Date APPENDECTOMY Social History: Social History Socioeconomic History Marital status: Single Spouse name: Not on file Number of children: Not on file Years of education: Not on file Highest education level: Not on file Occupational History Not on file Tobacco Use Smoking status: Every Day Current packs/day: 1.00 Types: Cigarettes Smokeless tobacco: Never Vaping Use Vaping status: Never Used Substance and Sexual Activity Alcohol use: Yes Comment: 2/5 vodka daily Drug use: Not Currently Types: Cocaine, Methamphetamines, Oxycodone, Fentanyl, Heroin, Benzodiazepines Sexual activity: Not Currently Other Topics Concern Not on file Social History Narrative Not on file Social Determinants of Health Financial Resource Strain: High Risk (08/11/2023) Overall Financial Resource Strain (CARDIA) Difficulty of Paying Living Expenses: Very hard Food Insecurity: Food Insecurity Present (08/11/2023) Hunger Vital Sign Worried About Running Out of Food in the Last Year: Often true Ran Out of Food in the Last Year: Often true Transportation Needs: No Transportation Needs (08/11/2023) PRAPARE - Transportation Lack of Transportation (Medical): No Lack of Transportation (Non-Medical): No Recent Concern: Transportation Needs - Unmet Transportation Needs (06/26/2023) PRAPARE - Transportation Lack of Transportation (Medical): Yes Lack of Transportation (Non-Medical): Yes Physical Activity: Inactive (08/11/2023) Exercise Vital Sign Days of Exercise per Week: 0 days Minutes of Exercise per Session: 0 min Stress: Stress Concern Present (08/11/2023) [employer] - Occupational Stress Questionnaire Feeling of Stress : Very much Social Connections: Socially Isolated (08/11/2023) Social Connection and Isolation Panel [NHANES] Frequency of Communication with Friends and Family: Never Frequency of Social Gatherings with Friends and Family: Never Attends [employer] Services: Never Active Member of Clubs or Organizations: No Attends Club or Organization Meetings: Never Marital Status: Never Intimate Partner Violence: Not At Risk (08/11/2023) Humiliation, Afraid, Rape, and Kick questionnaire Fear of Current or Ex-Partner: No Emotionally Abused: No Physically Abused: No Sexually Abused: No Housing Stability: High Risk (08/11/2023) Housing Stability Vital Sign Unable to Pay for Housing in the Last Year: Yes Number of Times Moved in the Last Year: 0 Homeless in the Last Year: Yes Family History: Family History Problem Relation Name Age of Onset No Known Problems Mother No Known Problems Father Medications Prior to Admission: Current Facility-Administered Medications on File Prior to Encounter Medication Dose Route Frequency Provider Last Rate Last Admin [COMPLETED] ketorolac (Toradol) injection 15 mg 15 mg IntraVENous Once Idris Danielson MD 15mg at 10/16/23 0155 [COMPLETED] morphine injection 4 mg 4 mg IntraVENous Once Idris Danielson MD 4 mg at 10/16/23 0316 [COMPLETED] ondansetron (Zofran) injection 4 mg 4 mg IntraVENous Once Idris Danielson MD 4 mg at 10/16/23 0155 [COMPLETED] sodium chloride 0.9 % bolus 1,000 mL 1,000 mL IntraVENous Once Idris Danielson MD Stopped at 10/16/23 0235 Current Outpatient Medications on File Prior to Encounter Medication Sig Dispense Refill buprenorphine-naloxone (Suboxone) 8-2 MG per sublingual film Place 1 Film under the tongue daily for 14 days. 14 Film 0 buprenorphine-naloxone (Suboxone) 8-[address] 1 tablet under the tongue daily. 14 tablet0 cloNIDine (Catapres) 0.1 MG tablet Take 1 tablet (0.1 mg) by mouth 3 times daily. 90 tablet 0 hydrOXYzine HCl (Atarax) 50 MG tablet Take 1 tablet (50 mg) by mouth 2 times daily as needed for anxiety. 60 tablet 1 melatonin 5 MG tablet Take 1 tablet (5 mg) by mouth Nightly as needed (insomnia). 30 tablet 1 metoprolol succinate XL (Toprol-XL) 25 MG 24 hr tablet Take 2 tablets (50 mg) by mouth daily. Do not crush or chew. (Patient taking differently: Take 50 mg by mouth daily. Do not crush or chew.) 30 tablet 3 omeprazole (PriLOSEC) [address] capsule Take 1 capsule (20 mg) by mouth every morning (before breakfast). Do not crush or chew. 30 capsule 0 ondansetron (Zofran) 4 MG tablet Take 1 tablet (4 mg) by mouth in the morning and 1 tablet (4 mg) at noon and 1 tablet (4 mg) in the evening and 1 tablet (4 mg) before bedtime. Do all this for 3 days. 12 tablet 0 oxyCODONE (Roxicodone) 5 MG immediate release tablet Take 1 tablet (5 mg) by mouth every 6 hours asneeded for severe pain (7-10) for up to 3 days. 12 tablet 0 risperiDONE (RisperDAL) 0.5 MG tablet Take 1 tablet (0.5 mg) by mouth 2 times daily. 60 tablet 0 venlafaxine XR (Effexor XR) 37.5 MG 24 hr capsule Take 1 capsule (37.5 mg) by mouth daily. Take with 1 capsule (75mg) by mouth daily for total dose of 112.5mg. Do not crush or chew. 30 capsule 1 Allergies: No Known Allergies REVIEW OF SYSTEMS: Constitutional: Negative for fever, chills, positive for activity change HEENT: Negative for congestion, postnasal drip and sneezing. Eyes: Negative for itching and visual disturbance. Respiratory: Negative for apnea, cough, choking, chest tightness, shortness of breath, wheezing andstridor. Cardiovascular: Negative for chest pain. Gastrointestinal: Positive for nausea vomiting and abdominal pain and negative for diarrhea and blood in stool Genitourinary: Negative for dysuria, frequency and flank pain. Musculoskeletal: Negative for myalgias and joint swelling. Skin: Negative for rash. Neurological: Negative for dizziness, tremors, seizures, syncope, facial asymmetry, speech difficulty, weakness, numbness and headaches. Psychiatric/Behavioral: Negative for suicidal ideas, behavioral problems, self- injury and dysphoricmood. Vitals: BP (!) 157/91 (BP Location: Left arm, Patient Position: Sitting) Pulse 71 Temp 36.9 C (98.4 F) (Temporal) Resp 20 SpO2 96% BMI Classification: Morbidly Obese (>40.0) Pulse Ox: SpO2 Av.6 % Min: 96 % Max: 98 % Supplemental O2: PHYSICAL EXAM: General appearance: Appears anxious in mild distress appears stated age and cooperative with exam. HEENT: Normal cephalic, atraumatic without obvious deformity. Pupils equal, round, and reactive to light. Extra ocular muscles intact. Conjunctivae/corneas clear. Neck: Supple, with full range of motion. No jugular venous distention. Respiratory: Normal respiratory effort. Clear to auscultation, bilaterally without Rales/Wheezes/Rhonchi. Cardiovascular: Regular rate and rhythm with normal S1/S2 without murmurs, rubs or gallops. Abdomen: Mild epigastric tenderness with normal bowel sounds and no distention no guarding or rigidity musculoskeletal: No clubbing, cyanosis or edema bilaterally. Full range of motion without deformity, +2 peripheral pulses in all extremities. Skin: Skin color, texture, turgor normal. No rashes or lesions. Neurologic: Neurovascularly intact without any focal sensory/motor deficits. Cranial nerves: II-XIIintact, grossly non-focal. Psychiatric: Alert and oriented, thought content appropriate, normal insight. DATA: CBC: Recent Labs 10/16/23 0201 10/16/23 1324 WBC 8.9 6.9 RBC 5.05 4.94 HGB 15.6 15.4 HCT 47.2 46.9 MCV 93.5 94.9 RDW 14.7 14.5 PLT 208 189 BMP: Recent Labs 10/16/23 0201 10/16/23 1324 NA 138 141 K 4.0 4.1 CL 100 103 CO2 25 28 BUN 5* 6* CREATININE 0.62* 0.68 GLUCOSE 126* 104* CALCIUM 9.7 9.6 ANIONGAP 13 9 LIVER PROFILE: Recent Labs 10/16/23 0201 10/16/23 1324 AST 235* 149* ALT 173* 159* BILITOT 0.8 1.1 ALKPHOS 158* 158* PROT 8.8* 8.1 PT/INR: No results for input(s): PROTIME, INR in the last 72 hours. CARDIAC ENZYMES: Recent Labs 10/16/23 0201 TROPONINI 0.016 Lab Results Component Value Date LIPASE 1,185 (H) 10/16/2023 Procalcitonin: No results found for: PROCAL Urine Culture: No results found for this or any previous visit. COVID-19 PCR: No results for input(s): COVID19 in the last 72 hours. I reviewed: [x] laboratory results [x] radiographic results At the time of today's encounter. Pt was advised of the results. IMPRESSION: Acute pancreatitis probably from alcohol use Alcohol abuse-addiction medicine consult History of severe opiate use-still recently on buprenorphine he claims he has discontinued it, reviewed his addiction medicine note Transaminitis probably from alcoholic liver disease-ultrasound without any obstructive pathology GERD Anxiety-continue his Risperdal Medical Decision Making: -38-year-old male patient is admitted with acute pancreatitis. This episode is probably triggered by alcohol use over the holiday weekend. Consulted addiction medicine and placed [facility] orders for alcohol withdrawal. He does not report any tremors, does complain of epigastric pain but over the last 24 hours his lipase has significantly decreased from 4000 to 1137,, continue with IV fluids, bowel rest, recheck lipase in a.m. Dilaudid for pain management, advance diet tomorrow as tolerated -PT/OT eval/increase activity -am labs, replace lytes prn -vitals per routine -home meds as ordered -DVT prophylaxis: [] Lovenox [] Heparin [] SCDs [x] Encourage ambulation [] Already on Anticoagulation Anticipated Discharge - Date - 10/17/2023 - Location - Home - Pending the following -resolution of pancreatitis Total time spent (which include face to face and non face to face encounters) : minutes Toxic drug monitoring/narrow therapeutic index drug monitoring : # Drug name : Dilaudid # Route administered : IV # Method of monitoring : Daily monitoring No emergency contact information on file. Code status: Full Code -see below for additional orders, further recommendations to follow Orders Placed This Encounter Procedures US abdomen limited Lipase CBC Comprehensive metabolic panel Triglycerides Adult diet Clear liquid Vital Signs Notify patient's primary care provider of admission Activity Up With Assistance Telemetry monitoring for Other Indication; Pancreatitis and alcohol WD Notify Provider (Other) Alcohol and or drug assessment Search patient Full code Inpatient consult to Addiction Medicine--[facility] Inpatient consult to Wound Care Initiate Oxygen Therapy Protocol Admit to inpatient Seizure precautions Fall precautions Skin care precautions Please forward a copy of this H&P to the patient's PCP. Thank you. documented in this [facility]09-06-2024 Emergency department Note* Francisco Zee MD - 10/16/2023 11:50 AM EDT [facility] ED EMERGENCY DEPARTMENT ENCOUNTER Pt Name: Roro Valdivia Birthdate 1985 Date of evaluation: 10/16/2023 Provider: Francisco Zee MD CHIEF COMPLAINT Chief Complaint Patient presents with Abdominal Pain HISTORY OF PRESENT ILLNESS (Location/Symptom, Timing/Onset,Context/Setting, Quality, Duration, Modifying Factors, Severity) Note limiting factors. HPI Roro Valdivia is a 38 y.o. male who presents to the emergency department with pancreatitis. This patient was seen last night at one of the freestanding ERs and diagnosed with pancreatitis but he wanted to try outpatient therapy, despite home medications he has considerable pain and nausea with vomiting today. Came back as advised for admission. He has had pancreatitis in the past, attributed toalcohol, no recent trauma, no recent medication changes, no chest pain, no shortness of breath, no lightheadedness, no generalized abdominal pain, pain is epigastric to getting into his back Nursing Notes were reviewed. REVIEW OF SYSTEMS Review of Systems Constitutional: Positive for activity change, appetite change and fatigue. Negative for fever. Gastrointestinal: Positive for abdominal pain, nausea and vomiting. Negative for blood in stool. Genitourinary: Negative for difficulty urinating. Neurological: Negative for light-headedness. Hematological: Negative for adenopathy. Does not bruise/bleed easily. Psychiatric/Behavioral: Negative for agitation and confusion. Pertinent positives and negatives as per HPI. PAST MEDICAL HISTORY Past Medical History: Diagnosis Date Alcohol withdrawal syndrome without complication ([facility]) 06/27/2022 Alcohol withdrawal with inpatient treatment, uncomplicated ([facility]) 03/15/2022 GERD (gastroesophageal reflux disease) History of pancreatitis 01/07/2023 Hypertension Pancreatitis Seizures ([facility]) SVT (supraventricular tachycardia) ([facility]) Tourette syndrome SURGICAL HISTORY Past Surgical History: Procedure Laterality Date APPENDECTOMY CURRENT MEDICATIONS Previous Medications BUPRENORPHINE-NALOXONE (SUBOXONE) 8-2 MG PER SUBLINGUAL FILM Place 1 Film under the tongue daily for 14 days. BUPRENORPHINE-NALOXONE (SUBOXONE) 8-[address] 1 tablet under the tongue daily. CLONIDINE (CATAPRES) 0.1 MG TABLET Take 1 tablet (0.1 mg) by mouth 3 times daily. HYDROXYZINE HCL (ATARAX) 50 MG TABLET Take 1 tablet (50 mg) by mouth 2 times daily as needed for anxiety. MELATONIN 5 MG TABLET Take 1 tablet (5 mg) by mouth Nightly as needed (insomnia). METOPROLOL SUCCINATE XL (TOPROL-XL) 25 MG 24 HR TABLET Take 2 tablets (50 mg) by mouth daily. Do not crush or chew. OMEPRAZOLE (PRILOSEC) [address] CAPSULE Take 1 capsule (20 mg) by mouth every morning (before breakfast). Do not crush or chew. ONDANSETRON (ZOFRAN) 4 MG TABLET Take 1 tablet (4 mg) by mouth in the morning and 1 tablet (4 mg) at noon and 1 tablet (4 mg) in the evening and 1 tablet (4 mg) before bedtime. Do all this for 3 days. OXYCODONE (ROXICODONE) 5 MG IMMEDIATE RELEASE TABLET Take 1 tablet (5 mg) by mouth every 6 hours asneeded for severe pain (7-10) for up to 3 days. RISPERIDONE (RISPERDAL) 0.5 MG TABLET Take 1 tablet (0.5 mg) by mouth 2 times daily. VENLAFAXINE XR (EFFEXOR XR) 37.5 MG 24 HR CAPSULE Take 1 capsule (37.5 mg) by mouth daily. Take with 1 capsule (75mg) by mouth daily for total dose of 112.5mg. Do not crush or chew. ALLERGIES Patient has no known allergies. FAMILY HISTORY Family History Problem Relation Name Age of Onset No Known Problems Mother No Known Problems Father SOCIAL HISTORY Social History Socioeconomic History Marital status: Single Tobacco Use Smoking status: Every Day Current packs/day: 1.00 Types: Cigarettes Smokeless tobacco: Never Vaping Use Vaping status: Never Used Substance and Sexual Activity Alcohol use: Yes Comment: 2/ vodka daily Drug use: Not Currently Types: Cocaine, Methamphetamines, Oxycodone, Fentanyl, Heroin, Benzodiazepines Sexual activity: Not Currently Social Determinants of Health Financial Resource Strain: High Risk (08/11/2023) Overall Financial Resource Strain (CARDIA) Difficulty of Paying Living Expenses: Very hard Food Insecurity: Food Insecurity Present (08/11/2023) Hunger Vital Sign Worried About Running Out of Food in the Last Year: Often true Ran Out of Food in the Last Year: Often true Transportation Needs: No Transportation Needs (08/11/2023) PRAPARE - Transportation Lack of Transportation (Medical): No Lack of Transportation (Non-Medical): No Recent Concern: Transportation Needs - Unmet Transportation Needs (06/26/2023) PRAPARE - Transportation Lack of Transportation (Medical): Yes Lack of Transportation (Non-Medical): Yes Physical Activity: Inactive (08/11/2023) Exercise Vital Sign Days of Exercise per Week: 0 days Minutes of Exercise per Session: 0 min Stress: Stress Concern Present (08/11/2023) [employer] - Occupational Stress Questionnaire Feeling of Stress : Very much Social Connections: Socially Isolated (08/11/2023) Social Connection and Isolation Panel [NHANES] Frequency of Communication with Friends and Family: Never Frequency of Social Gatherings with Friends and Family: Never Attends [employer] Services: Never Active Member of Clubs or Organizations: No Attends Club or Organization Meetings: Never Marital Status: Never Intimate Partner Violence: Not At Risk (08/11/2023) Humiliation, Afraid, Rape, and Kick questionnaire Fear of Current or Ex-Partner: No Emotionally Abused: No Physically Abused: No Sexually Abused: No Housing Stability: High Risk (08/11/2023) Housing Stability Vital Sign Unable to Pay for Housing in the Last Year: Yes Number of Times Moved in the Last Year: 0 Homeless in the Last Year: Yes SCREENINGS PHYSICAL EXAM @EDEVELIAS@ Physical Exam Constitutional: Appearance: Normal appearance. He is not ill-appearing or diaphoretic. HENT: Head: Normocephalic and atraumatic. Mouth/Throat: Mouth: Mucous membranes are dry. Eyes: General: No scleral icterus. Conjunctiva/sclera: Conjunctivae normal. Cardiovascular: Rate and Rhythm: Normal rate. Pulses: Normal pulses. Pulmonary: Effort: Pulmonary effort is normal. Abdominal: General: There is no distension. Tenderness: There is abdominal tenderness. Comments: Tenderness confined to his epigastrium Musculoskeletal: Right lower leg: No edema. Left lower leg: No edema. Skin: General: Skin is warm and dry. Coloration: Skin is not jaundiced or pale. Neurological: General: No focal deficit present. Mental Status: He is alert and oriented to person, place, and time. Psychiatric: Mood and Affect: Mood normal. DIAGNOSTIC RESULTS EKG (Per my interpretation): (See Epiphany for full interpretation) RADIOLOGY: Interpretation per the Radiologist below, if available at the time of this note: US abdomen limited Final Result 1. Gallbladder appears unremarkable. 2. Fatty infiltration of the liver. Report Dictated on Electronically Signed By: Adrian Mondragon MD Electronically Signed Date/Time: 10/16/2023 1:29 PM EDT LABS: Labs Reviewed LIPASE - Abnormal Result Value LIPASE 1,185 (*) COMPREHENSIVE METABOLIC PANEL - Abnormal SODIUM 141 POTASSIUM 4.1 CHLORIDE 103 CARBON DIOXIDE 28 ANION GAP 9 UREA NITROGEN 6 (*) CREATININE 0.68 GLUCOSE 104 (*) CALCIUM 9.6 AST (SGOT) 149 (*) ALT 159 (*) ALKALINE PHOSPHATASE 158 (*) ALBUMIN 4.5 BILIRUBIN, TOTAL 1.1 TOTAL PROTEIN 8.1 eGFR >90.0 CBC (HEMOGRAM) - Normal Auto WBC 6.9 RBC 4.94 Hemoglobin 15.4 Hematocrit 46.9 MCV 94.9 MCH 31.2 MCHC 32.8 RDW 14.5 Platelets 189 MPV 9.8 All other labs were within normal range or not returned as of this dictation. SCREENINGS EMERGENCY DEPARTMENT COURSE and DIFFERENTIAL DIAGNOSIS/MDM: Vitals: Vitals: 10/16/23 1151 10/16/23 1249 10/16/23 1312 BP: (!) 173/117 (!) 157/91 BP Location: Left arm Patient Position: Sitting Pulse: 88 71 Resp: 18 20 Temp: 36.9 C (98.4 F) TempSrc: Temporal SpO2: 97% 96% 96% The patient presented with a chief complaint of pancreatitis. The differential diagnosis associatedwith this patient's presentation includes alcohol-related pancreatitis, consider gallstones or other etiologies.. Our workup consisted of ordering/reviewing recheck his lipase and other labs and do aright upper quadrant ultrasound, will treat with IV hydromorphone and Zofran, IV fluids, will discuss with admission team for admission. Diagnoses as of 10/16/23 1354 Acute recurrent pancreatitis Diagnostic tests considered but not performed: Consider CT but patient reluctant to get that because of the radiation External records reviewed: Reviewed the results from outside ER done last night showing pancreatitis Diagnostics interpreted by me: Discussions with other clinicians: Admitting team will discuss with [facility] hospitalist for admission Admission Criteria: The patient requires hospitalization due to Intractable pain not able to managed at home/as outpatient Chronic conditions impacting care: Social determinants of health affecting care: ED Medications managed: Medications sodium chloride 0.9 % infusion (125 mL/hr IntraVENous New Bag 10/16/23 1326) ondansetron (Zofran) injection 4 mg (4 mg IntraVENous Given 10/16/23 1326) HYDROmorphone (Dilaudid) injection 0.5 mg (0.5 mg IntraVENous Given 10/16/23 1326) Prescription drugs considered: RECHECKS AND ADDITIONAL CARE: Meds alleviating symptoms, will admit as planned, lipase coming down but still elevated, ultrasoundshows nothing anatomic of concern Diagnoses as of 10/16/23 135 Acute recurrent pancreatitis PROCEDURES: Unless otherwise noted below, none Procedures CRITICAL CARE TIME FINAL IMPRESSION 1. Acute recurrent pancreatitis DISPOSITION/PLAN Admit 10/16/2023 01:54:14 PM REFERRED TO: No follow-up provider specified. DISCHARGE MEDICATIONS: New Prescriptions No medications on file (Please note: Portions of this note were completed with a voice recognition program. Efforts were made to edit the dictations but occasionally words and phrases are mis-transcribed.) [email or web address] Francisco Zee MD (electronically signed) Emergency Medicine Provider Francisco Zee MD 10/16/23 1355 * Zhane Guevara RN - 10/16/2023 11:50 AM EDT Pt c.o abdominal pain. Seen at [place] yesterday and diagnosed with pancreatitis, was told report back to ER if pain wasn't going away and he could be admitted documented in this [facility]09-06-2024 Emergency department Triage note* Zhane Guevara RN - 10/16/2023 11:50 AM EDT Pt c.o abdominal pain. Seen at [place] yesterday and diagnosed with pancreatitis, was told report back to ER if pain wasn't going away and [facility] could be [id number] Emergency [facility] Note* Francisco Zee MD - 10/16/2023 11:50 AM EDT [facility] ED EMERGENCY DEPARTMENT ENCOUNTER Pt Name: Roro Valdivia Birthdate 1985 Date of evaluation: 10/16/2023 Provider: Francisco Zee MD CHIEF COMPLAINT Chief Complaint Patient presents with Abdominal Pain HISTORY OF PRESENT ILLNESS (Location/Symptom, Timing/Onset,Context/Setting, Quality, Duration, Modifying Factors, Severity) Note limiting factors. HPI Roro Valdivia is a 38 y.o. male who presents to the emergency department with pancreatitis. This patient was seen last night at one of the freestanding ERs and diagnosed with pancreatitis but he wanted to try outpatient therapy, despite home medications he has considerable pain and nausea with vomiting today. Came back as advised for admission. He has had pancreatitis in the past, attributed toalcohol, no recent trauma, no recent medication changes, no chest pain, no shortness of breath, no lightheadedness, no generalized abdominal pain, pain is epigastric to getting into his back Nursing Notes were reviewed. REVIEW OF SYSTEMS Review of Systems Constitutional: Positive for activity change, appetite change and fatigue. Negative for fever. Gastrointestinal: Positive for abdominal pain, nausea and vomiting. Negative for blood in stool. Genitourinary: Negative for difficulty urinating. Neurological: Negative for light-headedness. Hematological: Negative for adenopathy. Does not bruise/bleed easily. Psychiatric/Behavioral: Negative for agitation and confusion. Pertinent positives and negatives as per HPI. PAST MEDICAL HISTORY Past Medical History: Diagnosis Date Alcohol withdrawal syndrome without complication ([facility]) 06/27/2022 Alcohol withdrawal with inpatient treatment, uncomplicated ([facility]) 03/15/2022 GERD (gastroesophageal reflux disease) History of pancreatitis 01/07/2023 Hypertension Pancreatitis Seizures ([facility]) SVT (supraventricular tachycardia) ([facility]) Tourette syndrome SURGICAL HISTORY Past Surgical History: Procedure Laterality Date APPENDECTOMY CURRENT MEDICATIONS Previous Medications BUPRENORPHINE-NALOXONE (SUBOXONE) 8-2 MG PER SUBLINGUAL FILM Place 1 Film under the tongue daily for 14 days. BUPRENORPHINE-NALOXONE (SUBOXONE) 8-[address] 1 tablet under the tongue daily. CLONIDINE (CATAPRES) 0.1 MG TABLET Take 1 tablet (0.1 mg) by mouth 3 times daily. HYDROXYZINE HCL (ATARAX) 50 MG TABLET Take 1 tablet (50 mg) by mouth 2 times daily as needed for anxiety. MELATONIN 5 MG TABLET Take 1 tablet (5 mg) by mouth Nightly as needed (insomnia). METOPROLOL SUCCINATE XL (TOPROL-XL) 25 MG 24 HR TABLET Take 2 tablets (50 mg) by mouth daily. Do not crush or chew. OMEPRAZOLE (PRILOSEC) [address] CAPSULE Take 1 capsule (20 mg) by mouth every morning (before breakfast). Do not crush or chew. ONDANSETRON (ZOFRAN) 4 MG TABLET Take 1 tablet (4 mg) by mouth in the morning and 1 tablet (4 mg) at noon and 1 tablet (4 mg) in the evening and 1 tablet (4 mg) before bedtime. Do all this for 3 days. OXYCODONE (ROXICODONE) 5 MG IMMEDIATE RELEASE TABLET Take 1 tablet (5 mg) by mouth every 6 hours asneeded for severe pain (7-10) for up to 3 days. RISPERIDONE (RISPERDAL) 0.5 MG TABLET Take 1 tablet (0.5 mg) by mouth 2 times daily. VENLAFAXINE XR (EFFEXOR XR) 37.5 MG 24 HR CAPSULE Take 1 capsule (37.5 mg) by mouth daily. Take with 1 capsule (75mg) by mouth daily for total dose of 112.5mg. Do not crush or chew. ALLERGIES Patient has no known allergies. FAMILY HISTORY Family History Problem Relation Name Age of Onset No Known Problems Mother No Known Problems Father SOCIAL HISTORY Social History Socioeconomic History Marital status: Single Tobacco Use Smoking status: Every Day Current packs/day: 1.00 Types: Cigarettes Smokeless tobacco: Never Vaping Use Vaping status: Never Used Substance and Sexual Activity Alcohol use: Yes Comment: 2/5 vodka daily Drug use: Not Currently Types: Cocaine, Methamphetamines, Oxycodone, Fentanyl, Heroin, Benzodiazepines Sexual activity: Not Currently Social Determinants of Health Financial Resource Strain: High Risk (08/11/2023) Overall Financial Resource Strain (CARDIA) Difficulty of Paying Living Expenses: Very hard Food Insecurity: Food Insecurity Present (08/11/2023) Hunger Vital Sign Worried About Running Out of Food in the Last Year: Often true Ran Out of Food in the Last Year: Often true Transportation Needs: No Transportation Needs (08/11/2023) PRAPARE - Transportation Lack of Transportation (Medical): No Lack of Transportation (Non-Medical): No Recent Concern: Transportation Needs - Unmet Transportation Needs (06/26/2023) PRAPARE - Transportation Lack of Transportation (Medical): Yes Lack of Transportation (Non-Medical): Yes Physical Activity: Inactive (08/11/2023) Exercise Vital Sign Days of Exercise per Week: 0 days Minutes of Exercise per Session: 0 min Stress: Stress Concern Present (08/11/2023) [employer] - Occupational Stress Questionnaire Feeling of Stress : Very much Social Connections: Socially Isolated (08/11/2023) Social Connection and Isolation Panel [NHANES] Frequency of Communication with Friends and Family: Never Frequency of Social Gatherings with Friends and Family: Never Attends [employer] Services: Never Active Member of Clubs or Organizations: No Attends Club or Organization Meetings: Never Marital Status: Never Intimate Partner Violence: Not At Risk (08/11/2023) Humiliation, Afraid, Rape, and Kick questionnaire Fear of Current or Ex-Partner: No Emotionally Abused: No Physically Abused: No Sexually Abused: No Housing Stability: High Risk (08/11/2023) Housing Stability Vital Sign Unable to Pay for Housing in the Last Year: Yes Number of Times Moved in the Last Year: 0 Homeless in the Last Year: Yes SCREENINGS PHYSICAL EXAM @[email or web address]@ Physical Exam Constitutional: Appearance: Normal appearance. He is not ill-appearing or diaphoretic. HENT: Head: Normocephalic and atraumatic. Mouth/Throat: Mouth: Mucous membranes are dry. Eyes: General: No scleral icterus. Conjunctiva/sclera: Conjunctivae normal. Cardiovascular: Rate and Rhythm: Normal rate. Pulses: Normal pulses. Pulmonary: Effort: Pulmonary effort is normal. Abdominal: General: There is no distension. Tenderness: There is abdominal tenderness. Comments: Tenderness confined to his epigastrium Musculoskeletal: Right lower leg: No edema. Left lower leg: No edema. Skin: General: Skin is warm and dry. Coloration: Skin is not jaundiced or pale. Neurological: General: No focal deficit present. Mental Status: He is alert and oriented to person, place, and time. Psychiatric: Mood and Affect: Mood normal. DIAGNOSTIC RESULTS EKG (Per my interpretation): (See Epiphany for full interpretation) RADIOLOGY: Interpretation per the Radiologist below, if available at the time of this note: US abdomen limited Final Result 1. Gallbladder appears unremarkable. 2. Fatty infiltration of the liver. Report Dictated on Electronically Signed By: Adrian Mondragon MD Electronically Signed Date/Time: 10/16/2023 1:29 PM EDT LABS: Labs Reviewed LIPASE - Abnormal Result Value LIPASE 1,185 (*) COMPREHENSIVE METABOLIC PANEL - Abnormal SODIUM 141 POTASSIUM 4.1 CHLORIDE 103 CARBON DIOXIDE 28 ANION GAP 9 UREA NITROGEN 6 (*) CREATININE 0.68 GLUCOSE 104 (*) CALCIUM 9.6 AST (SGOT) 149 (*) ALT 159 (*) ALKALINE PHOSPHATASE 158 (*) ALBUMIN 4.5 BILIRUBIN, TOTAL 1.1 TOTAL PROTEIN 8.1 eGFR >90.0 CBC (HEMOGRAM) - Normal Auto WBC 6.9 RBC 4.94 Hemoglobin 15.4 Hematocrit 46.9 MCV 94.9 MCH 31.2 MCHC 32.8 RDW 14.5 Platelets 189 MPV 9.8 All other labs were within normal range or not returned as of this dictation. SCREENINGS EMERGENCY DEPARTMENT COURSE and DIFFERENTIAL DIAGNOSIS/MDM: Vitals: Vitals: 10/16/23 1151 10/16/23 1249 10/16/23 1312 BP: (!) 173/117 (!) 157/91 BP Location: Left arm Patient Position: Sitting Pulse: 88 71 Resp: 18 20 Temp: 36.9 C (98.4 F) TempSrc: Temporal SpO2: 97% 96% 96% The patient presented with a chief complaint of pancreatitis. The differential diagnosis associatedwith this patient's presentation includes alcohol-related pancreatitis, consider gallstones or other etiologies.. Our workup consisted of ordering/reviewing recheck his lipase and other labs and do aright upper quadrant ultrasound, will treat with IV hydromorphone and Zofran, IV fluids, will discuss with admission team for admission. Diagnoses as of 10/16/23 1354 Acute recurrent pancreatitis Diagnostic tests considered but not performed: Consider CT but patient reluctant to get that because of the radiation External records reviewed: Reviewed the results from outside ER done last night showing pancreatitis Diagnostics interpreted by me: Discussions with other clinicians: Admitting team will discuss with [facility] hospitalist for admission Admission Criteria: The patient requires hospitalization due to Intractable pain not able to managed at home/as outpatient Chronic conditions impacting care: Social determinants of health affecting care: ED Medications managed: Medications sodium chloride 0.9 % infusion (125 mL/hr IntraVENous New Bag 10/16/23 1326) ondansetron (Zofran) injection 4 mg (4 mg IntraVENous Given 10/16/23 1326) HYDROmorphone (Dilaudid) injection 0.5 mg (0.5 mg IntraVENous Given 10/16/23 1326) Prescription drugs considered: RECHECKS AND ADDITIONAL CARE: Meds alleviating symptoms, will admit as planned, lipase coming down but still elevated, ultrasoundshows nothing anatomic of concern Diagnoses as of 10/16/23 1354 Acute recurrent pancreatitis PROCEDURES: Unless otherwise noted below, none Procedures CRITICAL CARE TIME FINAL IMPRESSION 1. Acute recurrent pancreatitis DISPOSITION/PLAN Admit 10/16/2023 01:54:14 PM REFERRED TO: No follow-up provider specified. DISCHARGE MEDICATIONS: New Prescriptions No medications on file (Please note: Portions of this note were completed with a voice recognition program. Efforts were made to edit the dictations but occasionally words and phrases are mis-transcribed.) [email or web address] Francisco Zee MD (electronically signed) Emergency Medicine Provider Francisco Zee MD 10/16/23 1355 [id number]* Sully Choi RN - 10/16/2023 4:35 AM EDT Pt states he feels ready to go home. Discharge instructions given including follow up instructions.Patient instructed to pick up operator prescription at listed preferred pharmacy, additional paper prescription also given to pt. All questions answered. Verbalizes understanding. Denies further questions or c oncerns. Pt's gait is steady, left in ED in no apparent distress. Sully Choi RN 10/16/23 0435 [id number] Emergency [facility] Note* Sully Choi RN - 10/16/2023 4:35 AM EDT Pt states he feels ready to go home. Discharge instructions given including follow up instructions.Patient instructed to pick up operator prescription at listed preferred pharmacy, additional paper prescription also given to pt. All questions answered. Verbalizes understanding. Denies further questions or c oncerns. Pt's gait is steady, left in ED in no apparent distress. Sully Choi RN 10/16/23 0435 * Idris Danielson MD - 10/16/2023 1:39 AM EDT Emergency Department Encounter [facility] EMERGENCY DEPT Patient: Roro Valdivia : 1985 Date of Evaluation: 10/16/2023 ED Provider: Idris Danielson MD CHIEF COMPLAINT: Abdominal pain, nausea vomiting Chief Complaint Patient presents with Abdominal Pain Nausea Vomiting HPI: Roro Valdivia is a 38 y.o. male with PMH per EMR including SVT, pancreatitis, hypertension, Tourette's syndrome, seizures, prior appendectomy, tobacco use, alcohol use, presents concern for abdominal pain nausea vomiting. Patient reports over the holiday weekend several days ago he drank large quantity of alcohol, subsequently developed epigastric abdominal pain with radiation to the back and associated nausea vomiting, he reports symptoms feel similar to prior episodes of pancreatitis in thepast, he denies fever chills, cough, chest pain, shortness of breath, pain elsewhere through the abdomen or other associated symptoms or concerns, he reports he has not been drinking alcohol daily oth erwise. REVIEW OF SYSTEMS: Pertinent positives and negatives as per HPI. HISTORIES: PAST MEDICAL HISTORY: as per HPI SOCIAL HISTORY: Per EMR history of tobacco and alcohol use MEDICATIONS: Nursing notes and EMR reviewed ALLERGIES: Nursing notes and EMR reviewed PHYSICAL EXAM: Vital signs: reviewed General: no apparent discomfort, well appearing Eyes: no conjunctival injection, eyes tracking HEENT: airway patent, mucous membranes moist Cardiovascular: regular rhythm, normal rate Respiratory: non-labored breathing, breath sounds clear, no wheezing crackles or rhonchi Gastrointestinal: soft, non-distended, mild tenderness to deep palpation in the epigastrium, abdomen otherwise nontender throughout including the right upper quadrant, no rigidity or guarding Extremities: no obvious deformity, non edematous Integumentary: warm, dry Neurologic: alert and oriented, answering questions appropriately, nonslurred speech, no tremulousness or tongue fasciculation, ambulatory with steady gait MEDICAL DECISION MAKING: Medications sodium chloride 0.9 % bolus 1,000 mL (0 mL IntraVENous Stopped 10/16/23 0235) ondansetron (Zofran) injection 4 mg (4 mg IntraVENous Given 10/16/23 0155) ketorolac (Toradol) injection 15 mg (15 mg IntraVENous Given 10/16/23 0155) morphine injection 4 mg (4 mg IntraVENous Given 10/16/23 0316) Roro Valdivia is a 38 y.o. male who presents as above, epigastric abdominal pain and nausea vomiting precipitated by binge drinking alcohol several days ago, denies current alcohol intoxication or alcohol use in the last 24 hours, he reports he has not been drinking alcohol daily recently - clinically low suspicion for alcohol withdrawal-patient agrees, clinically no alcohol intoxication evident, he reports symptoms feel similar to prior episodes of acute pancreatitis, he has mild tenderness in the epigastrium with otherwise benign abdominal exam, no right upper quadrant tenderness, presentation concerning for acute alcohol induced pancreatitis, he is afebrile mildly hypertensive borderline tachycardic otherwise reassuring vitals, discussed management, right upper quadrant ultrasound not available at this facility at this time, patient declines CT abdomen pelvis (discussed diagnostic utility for workup of pancreatitis or biliary process, as well as risk of radiation), he agrees to obtain labs and EKG to evaluate, will treat with Toradol, Zofran. Patient additionally treated with morphine. Per EMR review, CT abdomen pelvis 06/06/2018 findings compatible with pancreatitis no bile duct dilatation to suggest a stone EKG obtained, per my interpretation, notable for sinus rhythm, LVH by voltage, nonspecific T wave abnormalities inferior leads similar to prior EKG, no acute ischemic ST segment changes. Troponin 0.016 Labs obtained, interpreted by me, notable for lipase > 4000, AST 235, ALT 173, alk phos 158, no renal dysfunction, no leukocytosis Transaminitis similar to prior evaluations-suspect related to alcohol use, he has no tenderness in the right upper quadrant, nonsuggestive of an acute biliary process, elevated lipase consistent withacute pancreatitis explanatory of symptoms, patient informed of findings, on reevaluation he is in no apparent discomfort or distress, abdomen is nontender to deep palpation throughout including the epigastrium and right upper quadrant, I discussed further management at length including hospitalization for further workup as indicated, symptom control, regulation of diet, patient declines hospitalization, elects to be discharged, will prescribe Zofran and oxycodone for acute pain-patient counseled on the use of this medication, he reports he has been off Suboxone for 2 weeks now, recommend NSAIDs for discomfort, recommend clear liquid diet and gradual progression to normal diet, recommend strict avoidance of alcohol, PCP follow-up in 3 to 5 days with strict return precautions discussed, patient and agree with plan, stable for discharge. DIAGNOSIS: Alcohol induced acute pancreatitis DISPOSITION: Discharge PRESCRIPTIONS: New Prescriptions ONDANSETRON (ZOFRAN) 4 MG TABLET Take 1 tablet (4 mg) by mouth in the morning and 1 tablet (4 mg) at noon and 1 tablet (4 mg) in the evening and 1 tablet (4 mg) before bedtime. Do all this for 3 days. OXYCODONE (ROXICODONE) 5 MG IMMEDIATE RELEASE TABLET Take 1 tablet (5 mg) by mouth every 6 hours asneeded for severe pain (7-10) for up to 3 days. Comment: Please note this report has been produced using speech recognition software and may contain errors related to that system including errors in grammar, punctuation, and spelling, as well as words and phrases that may be inappropriate. If there are any questions or concerns please feel free to contact the dictating provider for clarification. Idris Danielson MD Acute Care [facility] Idris Danielson MD 10/16/23 0455 * Clement Perdomo RN - 10/16/2023 1:39 AM EDT Pt in with complaint of abd pain with nausea and vomiting pt states started last night pt alert andoriented skin warm and dry no resp distress pt rates pain 10/10 pt states I have a hx of pancreatitis gait steady upon arrival ' documented in this [facility]09-06-2024 Hospital Discharge instructions* Discharge Instructions* Idris Danielson MD - 10/16/2023 4:08 AM EDT Please return to the Emergency Department immediately for new, worsening, or changing symptoms, or any new concerns, including recurrent persistent or severe abdominal pain, vomiting, chest pain, shortness of breath, fever or chills, or poorly controlled symptoms. You may take ibuprofen and/or Tylenol as needed for discomfort according to package instructions. Please assume a clear liquid diet and gradually progressed to normal diet over the next several days. Do not drink alcohol as this will worsen your current condition. Please follow-up with [your primary care doctor] within the next [3-5] days. * Attachments The following attachments cannot be sent through Care Everywhere. * Pancreatitis ([place]) * Clear Liquid Diet ([place]) documented in this [facility]09-06-2024 Emergency department Triage note* Clement Perdomo RN - 10/16/2023 1:39 AM EDT Pt in with complaint of abd pain with nausea and vomiting pt states started last night pt alert andoriented skin warm and dry no resp distress pt rates pain 10/10 pt states I have a hx of pancreatitis gait steady upon arrival ' [id number] Emergency department Note* Idris Danielson MD - 10/16/2023 1:39 AM EDT Emergency Department Encounter [facility] EMERGENCY DEPT Patient: Roro Valdivia : 1985 Date of Evaluation: 10/16/2023 ED Provider: Idris Danielson MD CHIEF COMPLAINT: Abdominal pain, nausea vomiting Chief Complaint Patient presents with Abdominal Pain Nausea Vomiting HPI: Roro Valdivia is a 38 y.o. male with PMH per EMR including SVT, pancreatitis, hypertension, Tourette's syndrome, seizures, prior appendectomy, tobacco use, alcohol use, presents concern for abdominal pain nausea vomiting. Patient reports over the holiday weekend several days ago he drank large quantity of alcohol, subsequently developed epigastric abdominal pain with radiation to the back and associated nausea vomiting, he reports symptoms feel similar to prior episodes of pancreatitis in thepast, he denies fever chills, cough, chest pain, shortness of breath, pain elsewhere through the abdomen or other associated symptoms or concerns, he reports he has not been drinking alcohol daily oth erwise. REVIEW OF SYSTEMS: Pertinent positives and negatives as per HPI. HISTORIES: PAST MEDICAL HISTORY: as per HPI SOCIAL HISTORY: Per EMR history of tobacco and alcohol use MEDICATIONS: Nursing notes and EMR reviewed ALLERGIES: Nursing notes and EMR reviewed PHYSICAL EXAM: Vital signs: reviewed General: no apparent discomfort, well appearing Eyes: no conjunctival injection, eyes tracking HEENT: airway patent, mucous membranes moist Cardiovascular: regular rhythm, normal rate Respiratory: non-labored breathing, breath sounds clear, no wheezing crackles or rhonchi Gastrointestinal: soft, non-distended, mild tenderness to deep palpation in the epigastrium, abdomen otherwise nontender throughout including the right upper quadrant, no rigidity or guarding Extremities: no obvious deformity, non edematous Integumentary: warm, dry Neurologic: alert and oriented, answering questions appropriately, nonslurred speech, no tremulousness or tongue fasciculation, ambulatory with steady gait MEDICAL DECISION MAKING: Medications sodium chloride 0.9 % bolus 1,000 mL (0 mL IntraVENous Stopped 10/16/23 0235) ondansetron (Zofran) injection 4 mg (4 mg IntraVENous Given 10/16/23 0155) ketorolac (Toradol) injection 15 mg (15 mg IntraVENous Given 10/16/23 0155) morphine injection 4 mg (4 mg IntraVENous Given 10/16/23 0316) Roro Valdivia is a 38 y.o. male who presents as above, epigastric abdominal pain and nausea vomiting precipitated by binge drinking alcohol several days ago, denies current alcohol intoxication or alcohol use in the last 24 hours, he reports he has not been drinking alcohol daily recently - clinically low suspicion for alcohol withdrawal-patient agrees, clinically no alcohol intoxication evident, he reports symptoms feel similar to prior episodes of acute pancreatitis, he has mild tenderness in the epigastrium with otherwise benign abdominal exam, no right upper quadrant tenderness, presentation concerning for acute alcohol induced pancreatitis, he is afebrile mildly hypertensive borderline tachycardic otherwise reassuring vitals, discussed management, right upper quadrant ultrasound not available at this facility at this time, patient declines CT abdomen pelvis (discussed diagnostic utility for workup of pancreatitis or biliary process, as well as risk of radiation), he agrees to obtain labs and EKG to evaluate, will treat with Toradol, Zofran. Patient additionally treated with morphine. Per EMR review, CT abdomen pelvis 06/06/2018 findings compatible with pancreatitis no bile duct dilatation to suggest a stone EKG obtained, per my interpretation, notable for sinus rhythm, LVH by voltage, nonspecific T wave abnormalities inferior leads similar to prior EKG, no acute ischemic ST segment changes. Troponin 0.016 Labs obtained, interpreted by me, notable for lipase > 4000, AST 235, ALT 173, alk phos 158, no renal dysfunction, no leukocytosis Transaminitis similar to prior evaluations-suspect related to alcohol use, he has no tenderness in the right upper quadrant, nonsuggestive of an acute biliary process, elevated lipase consistent withacute pancreatitis explanatory of symptoms, patient informed of findings, on reevaluation he is in no apparent discomfort or distress, abdomen is nontender to deep palpation throughout including the epigastrium and right upper quadrant, I discussed further management at length including hospitalization for further workup as indicated, symptom control, regulation of diet, patient declines hospitalization, elects to be discharged, will prescribe Zofran and oxycodone for acute pain-patient counseled on the use of this medication, he reports he has been off Suboxone for 2 weeks now, recommend NSAIDs for discomfort, recommend clear liquid diet and gradual progression to normal diet, recommend strict avoidance of alcohol, PCP follow-up in 3 to 5 days with strict return precautions discussed, patient and agree with plan, stable for discharge. DIAGNOSIS: Alcohol induced acute pancreatitis DISPOSITION: Discharge PRESCRIPTIONS: New Prescriptions ONDANSETRON (ZOFRAN) 4 MG TABLET Take 1 tablet (4 mg) by mouth in the morning and 1 tablet (4 mg) at noon and 1 tablet (4 mg) in the evening and 1 tablet (4 mg) before bedtime. Do all this for 3 days. OXYCODONE (ROXICODONE) 5 MG IMMEDIATE RELEASE TABLET Take 1 tablet (5 mg) by mouth every 6 hours asneeded for severe pain (7-10) for up to 3 days. Comment: Please note this report has been produced using speech recognition software and may contain errors related to that system including errors in grammar, punctuation, and spelling, as well as words and phrases that may be inappropriate. If there are any questions or concerns please feel free to contact the dictating provider for clarification. Idris Danielson MD Acute Care [facility] Idris Danielson MD 10/16/23 0455 [id number] History of Present illness Narrative* Nikky Escobar MD - 10/14/2023 2:30 PM EDT Images from the original note were not included. MEDICATION ASSISTED TREATMENT FOLLOW UP VISIT Patient: Roro Valdivia __ Chief complaint Subjective Roro Valdivia, a 38 y.o. male, who presents for a follow-up MAT appointment. -Roro notes last day of suboxone dose was 09/22; reports minimal withdrawal sx but on 09/30 developedpancreatitis for which he was seen in the ED and prescribed short script of oxycodone -notes he began drinking on the in celebration for his birthday and has been drinking about 1Lvodka daily since, pancreatitis was very painful but sx have now resolved -has remained sober from opiates or other substances -reports feeling embarrassed discussing relapse; notes barrier to returning to detox is his feelings of embarrassment over many times he's been there -collaboratively engaged in plans to cut back and interest in [place] for further resources -notes tics have been improved since increase in dose of Risperidone Review of systems: Denies suicidal or homicidal ideation denies tactile auditory or visual hallucinations today All of systems ROS was completed and was negative unless stated above Objective Physical Exam Constitutional: General: He is not in acute distress. Appearance: He is not diaphoretic. Comments: Smelling of alcohol HENT: Head: Normocephalic and atraumatic. Nose: No rhinorrhea. Cardiovascular: Rate and Rhythm: Normal rate. Pulmonary: Effort: Pulmonary effort is normal. No respiratory distress. Neurological: Mental Status: He is alert and oriented to person, place, and time. Comments: Various motor tics noted Psychiatric: Attention and Perception: He does not perceive auditory or visual hallucinations. Mood and Affect: Mood is not anxious or depressed. Behavior: Behavior is cooperative. Thought Content: Thought content does not include homicidal or suicidal ideation. Comments: Notably not anxious, calm throughout discussion, voicing depression and embaressment Current Outpatient Medications Medication Sig Dispense Refill buprenorphine-naloxone (Suboxone) 8-2 MG per sublingual film Place 1 Film under the tongue daily for 14 days. 14 Film 0 buprenorphine-naloxone (Suboxone) 8-[address] 1 tablet under the tongue daily. 14 tablet0 cloNIDine (Catapres) 0.1 MG tablet Take 1 tablet (0.1 mg) by mouth 3 times daily. 90 tablet 0 hydrOXYzine HCl (Atarax) 50 MG tablet Take 1 tablet (50 mg) by mouth 2 times daily as needed for anxiety. 60 tablet 1 melatonin 5 MG tablet Take 1 tablet (5 mg) by mouth Nightly as needed (insomnia). 30 tablet 1 metoprolol succinate XL (Toprol-XL) 25 MG 24 hr tablet Take 2 tablets (50 mg) by mouth daily. Do not crush or chew. (Patient taking differently: Take 50 mg by mouth daily. Do not crush or chew.) 30 tablet 3 omeprazole (PriLOSEC) [address] capsule Take 1 capsule (20 mg) by mouth every morning (before breakfast). Do not crush or chew. 30 capsule 0 risperiDONE (RisperDAL) 0.5 MG tablet Take 1 tablet (0.5 mg) by mouth 2 times daily. 60 tablet 0 venlafaxine XR (Effexor XR) 37.5 MG 24 hr capsule Take 1 capsule (37.5 mg) by mouth daily. Take with 1 capsule (75mg) by mouth daily for total dose of 112.5mg. Do not crush or chew. 30 capsule 1 No current facility-administered medications for this visit. OARRS: Reviewed and no inconsistencies or concerns. Assessment & Plan No diagnosis found. No orders of the defined types were placed in this encounter. Severe opioid use disorder (HCC) Severe Alcohol Use Disorder BZD use disorder in remission Stimulant use disorder in remission Nicotine Use disorder -discontinued suboxone abruptly, discussed not restarting this -plans to cut back gradually over week until next appt, hopeful to engage with Maximilian after this MDD RODRIGUEZ Tourette Disorder -continue effexor to 37.5mg daily for mood and anxiety, risperidone 0.5mg BID for Tourettes, clonidine 0.1mg TID for anxiety, and atarax 50mg prn for anxiety Patient Goals: 1. Continue 12-step meeting attendance (goal of 2 per week). 2. Actively communicate with sponsor. 3. Take medication as directed and report any negative side effects or missed doses. 4. Report any illicit drug use to either the briefcase sewer or myself/my staff. 5. Keep medicine out of the reach of children. 6. Follow-up with recommended level of care. Interventions in Session: 1. Discussed patient's progress in their 12-step program. 2. Discussed progress in recovery and overall well-being. 3. Discussed stressors/triggers for a potential relapse & related coping mechanisms. -Follow up in 1 week This patient was staffed with Dr. Orta. Nikky Escobar MD Addiction Medicine 10/14/2023 at 8:36 AM Associated attestation - Carlitos Orta MD - 10/15/2023 9:50 AM EDT Indirect Supervision Attestation During or immediately after this visit, I discussed this case with the treating fellow. Our discussion included the history obtained by the fellow, the fellow's exam findings, and the fellow's treatment plan. I agree with the assessment and plan as documented in the fellow's note (and any addendum's are listed below). Please see fellow s note for further details. This service has been performed by a fellow without the presence of a teaching physician under the primary care exception (GE Modifier). documented in this [facility]08-28-2024 Telephone encounter Note* Telephone Encounter - Isaura Estrella - 10/07/2023 3:11 PM EDT [facility]. [id number] Miscellaneous Notes* Telephone Encounter - Isaura Estrella - 10/07/2023 3:11 PM EDT Pt rescheduled. * Telephone Encounter - Joanne Alvarez - 10/07/2023 12:21 PM EDT Name of Caller: Roro Valdivia Contact Reason for Appointment: Pt called in regards to rescheduling the appointment scheduled on 10/07/2023 at 2:30 pm. Pt is requesting a call back to reschedule the appointment. Please advise. Office Name: Behavioral health Medication Refills need, if any: No Medication Name: None documented in this [facility]08-28-2024 Telephone encounter Note* Telephone Encounter - Joanne Alvarez - 10/07/2023 12:21 PM EDT Name of Caller: Roro Valdivia Contact Reason for Appointment: Pt called in regards to rescheduling the appointment scheduled on 10/07/2023 at 2:30 pm. Pt is requesting a call back to reschedule the appointment. Please advise. Office Name: Behavioral health Medication Refills need, if any: No Medication Name: None [id number] Miscellaneous Notes* Telephone Encounter - Nikky Escobar MD - 10/01/2023 2:47 PM EDT Spoke with Roro - states last had suboxone a day before our appt and because the prescription was sent as tablets, did not take them. Reports minimal withdrawal sx but recently developed significant stomach pain, N/V and was seen in ED for pancreatits. Received oxycodone in ED which relieved pain, would be appropriate to fill short script. Called pharmacy to clarify last day of suboxone. -Nikky Escobar MD electronically signed this at 2:46 PM * Telephone Encounter - Brianda Sabillon - 10/01/2023 10:32 AM EDT Name of caller: Roro Contact phone number: [phone] Relationship to Patient: patient Provider: Dr Escobar Practice: Behavioral Health Chief Complaint/Reason for Call: Patient called stating that he needs provider to confirm to the pharmacy that he is no longer taking suboxone so he can have the percocet 5mg (oxyCODONE (Roxicodone) 5 MG immediate release tablet ) that the ER has prescribed. He stated that he stopped the suboxone 2weeks ago. [facility] [place] [place] - [address] [facility] [address] [place] [address] Best time of day caller can be reached: AM Patient advised that office/PCP has 24-48 business hours to return their call: No documented in this encounterSDayton [facility] [id number] Telephone encounter Note* Telephone Encounter - Nikky Escobar MD - 10/01/2023 2:47 PM EDT Spoke with Roro - states last had suboxone a day before our appt and because the prescription was sent as tablets, did not take them. Reports minimal withdrawal sx but recently developed significant stomach pain, N/V and was seen in ED for pancreatits. Received oxycodone in ED which relieved pain, would be appropriate to fill short script. Called pharmacy to clarify last day of suboxone. -Nikky Escobar MD electronically signed this at 2:46 PM [id number] Telephone encounter Note* Telephone Encounter - Brianda Sabillon - 10/01/2023 10:32 AM EDT Name of caller: Roro Contact phone number: [phone] Relationship to Patient: patient Provider: Dr Escobar Practice: Behavioral Health Chief Complaint/Reason for Call: Patient called stating that he needs provider to confirm to the pharmacy that he is no longer taking suboxone so he can have the percocet 5mg (oxyCODONE (Roxicodone) 5 MG immediate release tablet ) that the ER has prescribed. He stated that he stopped the suboxone 2weeks ago. [facility] - [place] - [address] [facility] [address] [place] [address] Best time of day caller can be reached: AM Patient advised that office/PCP has 24-48 business hours to return their call: No [place] [id number] Hospital Discharge instructions* Discharge Instructions* Bhupinder Boyd MD - 10/01/2023 2:52 AM EDT He did not or found to have pancreatitis. Use the prescribed nausea and pain medication for the next several days to help with your abdominal pain and for treatment of your symptoms. Stick to liquidsfor the next 24 to 48 hours and then increase your diet as tolerated. Return if having significant changes or worsening documented in this [facility]08-21-2024 Emergency department Note* Bhupinder Boyd MD - 2023 10:20 PM EDT EMERGENCY DEPARTMENT ENCOUNTER Pt Name: Roro Valdivia Birthdate 1985 Date of evaluation: 2023 ED Provider: Bhupinder Boyd MD CHIEF COMPLAINT Chief Complaint Patient presents with Abdominal Pain Pt arrives to the ED with abd pain. Pt states he has had pancreatitis and that the pain is a 10/10.Pt states something is twisting inside of my stomach. HISTORY OF PRESENT ILLNESS I wore appropriate PPE for the entirety of this encounter. HPI Roro Valdivia is a 38 y.o. person who presents to the emergency department with history of alcohol use disorder as well as opiate use disorder presenting with concern for epigastric abdominal pain.He reports he has not been drinking much alcohol today and is feeling slight signs of withdrawal. He also endorses nausea and vomiting ongoing for the last day he has had pancreatitis in the past andstates it feels somewhat similar. Nursing Notes were reviewed. Limitations to history: None Outside historians: None REVIEW OF SYSTEMS Review of Systems Gastrointestinal: Positive for abdominal pain, nausea and vomiting. PAST MEDICAL HISTORY Past Medical History: Diagnosis Date Alcohol withdrawal syndrome without complication (HCC) 06/27/2022 Alcohol withdrawal with inpatient treatment, uncomplicated (HCC) 03/15/2022 GERD (gastroesophageal reflux disease) History of pancreatitis 01/07/2023 Hypertension Pancreatitis Seizures (HCC) SVT (supraventricular tachycardia) ([facility]) Tourette syndrome SURGICAL HISTORY Past Surgical History: Procedure Laterality Date APPENDECTOMY CURRENT MEDICATIONS Previous Medications BUPRENORPHINE-NALOXONE (SUBOXONE) 8-2 MG PER SUBLINGUAL FILM Place 1 Film under the tongue daily for 14 days. BUPRENORPHINE-NALOXONE (SUBOXONE) 8-[address] 1 tablet under the tongue daily. CLONIDINE (CATAPRES) 0.1 MG TABLET Take 1 tablet (0.1 mg) by mouth 3 times daily. HYDROXYZINE HCL (ATARAX) 50 MG TABLET Take 1 tablet (50 mg) by mouth 2 times daily as needed for anxiety. MELATONIN 5 MG TABLET Take 1 tablet (5 mg) by mouth Nightly as needed (insomnia). METOPROLOL SUCCINATE XL (TOPROL-XL) 25 MG 24 HR TABLET Take 2 tablets (50 mg) by mouth daily. Do not crush or chew. OMEPRAZOLE (PRILOSEC) [address] CAPSULE Take 1 capsule (20 mg) by mouth every morning (before breakfast). Do not crush or chew. RISPERIDONE (RISPERDAL) 0.5 MG TABLET Take 1 tablet (0.5 mg) by mouth 2 times daily. VENLAFAXINE XR (EFFEXOR XR) 37.5 MG 24 HR CAPSULE Take 1 capsule (37.5 mg) by mouth daily. Take with 1 capsule (75mg) by mouth daily for total dose of 112.5mg. Do not crush or chew. ALLERGIES Patient has no known allergies. FAMILY HISTORY Family History Problem Relation Name Age of Onset No Known Problems Mother No Known Problems Father SOCIAL HISTORY Social History Socioeconomic History Marital status: Single Tobacco Use Smoking status: Every Day Current packs/day: 1.00 Types: Cigarettes Smokeless tobacco: Never Vaping Use Vaping status: Never Used Substance and Sexual Activity Alcohol use: Yes Comment: 2/5 vodka daily Drug use: Not Currently Types: Cocaine, Methamphetamines, Oxycodone, Fentanyl, Heroin, Benzodiazepines Sexual activity: Not Currently Social Determinants of Health Financial Resource Strain: High Risk (08/11/2023) Overall Financial Resource Strain (CARDIA) Difficulty of Paying Living Expenses: Very hard Food Insecurity: Food Insecurity Present (08/11/2023) Hunger Vital Sign Worried About Running Out of Food in the Last Year: Often true Ran Out of Food in the Last Year: Often true Transportation Needs: No Transportation Needs (08/11/2023) PRAPARE - Transportation Lack of Transportation (Medical): No Lack of Transportation (Non-Medical): No Recent Concern: Transportation Needs - Unmet Transportation Needs (06/26/2023) PRAPARE - Transportation Lack of Transportation (Medical): Yes Lack of Transportation (Non-Medical): Yes Physical Activity: Inactive (08/11/2023) Exercise Vital Sign Days of Exercise per Week: 0 days Minutes of Exercise per Session: 0 min Stress: Stress Concern Present (08/11/2023) [employer] - Occupational Stress Questionnaire Feeling of Stress : Very much Social Connections: Socially Isolated (08/11/2023) Social Connection and Isolation Panel [NHANES] Frequency of Communication with Friends and Family: Never Frequency of Social Gatherings with Friends and Family: Never Attends [employer] Services: Never Active Member of Clubs or Organizations: No Attends Club or Organization Meetings: Never Marital Status: Never Intimate Partner Violence: Not At Risk (08/11/2023) Humiliation, Afraid, Rape, and Kick questionnaire Fear of Current or Ex-Partner: No Emotionally Abused: No Physically Abused: No Sexually Abused: No Housing Stability: High Risk (08/11/2023) Housing Stability Vital Sign Unable to Pay for Housing in the Last Year: Yes Number of Times Moved in the Last Year: 0 Homeless in the Last Year: Yes SCREENINGS PHYSICAL EXAM ED Triage Vitals [09/30/23 2222] Temp Heart Rate Resp BP 36.5 C (97.7 F) 100 16 (!) 182/119 SpO2 Temp Source Heart Rate Source Patient Position 96 % Temporal Monitor -- BP Location FiO2 (%) -- -- Physical Exam Vitals and nursing note reviewed. Constitutional: General: He is not in acute distress. Appearance: He is well-developed. HENT: Head: Normocephalic and atraumatic. Eyes: Conjunctiva/sclera: Conjunctivae normal. Cardiovascular: Rate and Rhythm: Normal rate and regular rhythm. Heart sounds: No murmur heard. Pulmonary: Effort: Pulmonary effort is normal. No respiratory distress. Breath sounds: Normal breath sounds. Abdominal: Palpations: Abdomen is soft. Tenderness: There is abdominal tenderness in the epigastric area. Musculoskeletal: General: No swelling. Cervical back: Neck supple. Skin: General: Skin is warm and dry. Capillary Refill: Capillary refill takes less than 2 seconds. Neurological: Mental Status: He is alert. Comments: Slight tremoring noted Psychiatric: Mood and Affect: Mood normal. DIAGNOSTIC RESULTS RADIOLOGY (Per Emergency Physician): Interpretation per the Radiologist below, if available at the time of this note: No orders to display EKG Interpretation: LABS: Labs Reviewed COMPREHENSIVE METABOLIC PANEL - Abnormal Result Value SODIUM 137 POTASSIUM 3.4 (*) CHLORIDE 100 CARBON DIOXIDE 24 ANION GAP 13 UREA NITROGEN 3 (*) CREATININE 0.55 (*) GLUCOSE 106 (*) CALCIUM 9.7 AST (SGOT) 364 (*) ALT 408 (*) ALKALINE PHOSPHATASE 117 ALBUMIN 4.7 BILIRUBIN, TOTAL 0.8 TOTAL PROTEIN 8.0 eGFR >90.0 LIPASE - Abnormal LIPASE 2,537 (*) COMPLETE URINALYSIS - Abnormal Color, Urine Yellow Clarity, Urine Clear pH, Urine 6.0 Leukocytes, Urine Negative Nitrite, Urine Negative Protein, Urine 10 (*) Glucose, Urine Normal Bilirubin, Urine Negative Ketones, Urine Negative Urobilinogen, Urine Normal Blood, Urine Negative RBC, Urine 0-2 WBC, Urine 0-2 Squamous Epithelial, Urine 0-2 Bacteria, Urine Negative Mucus, Urine Moderate (*) SPECIFIC GRAVITY OF URINE (NUMERIC) 1.020 CBC WITH AUTO DIFFERENTIAL - Normal Auto WBC 6.7 RBC 4.59 Hemoglobin 14.3 Hematocrit 42.1 MCV 91.7 MCH 31.2 MCHC 34.0 RDW 14.2 Platelets 226 MPV 9.5 nRBC 0.0 Neutrophils Relative 52.5 Lymphocytes Relative 39.2 Monocytes Relative 6.4 Eosinophils Relative 0.7 Basophils Relative 0.6 Immature Grans % 0.6 Neutrophils Absolute 3.5 Lymphocytes Absolute 2.6 Monocytes Absolute 0.4 Eosinophils Absolute 0.1 Basophils Absolute 0.0 Immature Grans Absolute 0.0 COMPLETE URINALYSIS WITH REFLEX TO CULTURE Narrative: The following orders were created for panel order Complete Urinalysis with reflex to Culture. Procedure Abnormality Status --------- ------ Complete Urinalysis[[id number]] Abnormal Final result Please view results for these tests on the individual orders. All other labs were within normal range or not returned as of this dictation. EMERGENCY DEPARTMENT COURSE and DIFFERENTIAL DIAGNOSIS/MDM: Vitals: Vitals: 09/30/23 2222 BP: (!) 182/119 Pulse: 100 Resp: 16 Temp: 36.5 C (97.7 F) TempSrc: Temporal SpO2: 96% Medications Administered in the ED: Medications oxyCODONE (Roxicodone) immediate release tablet 5 mg (has no administration in time range) oxyCODONE (Roxicodone) immediate release tablet 5 mg (5 mg Oral Given 10/01/23 012) ondansetron (Zofran) injection 4 mg (4 mg IntraVENous Given 10/01/23 012) sodium chloride 0.9 % bolus 1,000 mL (0 mL IntraVENous Stopped 10/01/23 0226) LORazepam (Ativan) injection 1 mg (1 mg IntraVENous Given 10/01/23 0146) With concern for abdominal pain nausea and vomiting PROCEDURES: Unless otherwise noted below, none Procedures Differential Diagnosis Considerations: Pancreatitis, gastroenteritis, gastritis Sources of History: Patient ED Course: Workup was initiated in triage with protocol eyes orders. Vital signs did show some slight tachycardia as well as hypertension. Patient reports he has not been to eat or drink too much today secondary to his abdominal pain nausea and vomiting workup does show elevated lipase of 2500 elevated AST and ALT slightly worse than previous although likely related to his chronic alcohol use although normal bilirubin less concern for any gallbladder pathology at this point in time we will give him Ativan, pain control and fluids and reassess. If he is tolerating p.o. intake without any emesis may be safe for discharge with short course of pain medication nausea medication. Otherwise may require admission for withdrawal symptoms along with pancreatitis Reassessment: Patient feeling slightly improved able to tolerate p.o. intake. He reports he has been clean from alcohol except for Thursday where he had binge due to his birthday. Likely the cause of his pancreatitis. He reportedly has not been taking Suboxone as they weaned him off of it and will prescribe a short course of pain medication as he is comfortable with plan of discharge home and strict return precautions if symptoms are worsening Consideration of Admission/Observation: Independent Interpretation of Tests: Diagnostic Tests Considered but not Performed: Prescription Medications Considered but not Prescribed: Chronic Conditions Affecting Care: FINAL IMPRESSION 1. Alcohol-induced acute pancreatitis, unspecified complication status DISPOSITION Discharge 10/01/2023 02:51:53 AM CRITICAL CARE TIME PATIENT REFERRED TO: No follow-up provider specified. DISCHARGE MEDICATIONS: New Prescriptions ONDANSETRON ODT (ZOFRAN-ODT) 4 MG DISINTEGRATING TABLET Take 1 tablet (4 mg) by mouth every 8 hoursas needed for nausea or vomiting for up to 7 days. OXYCODONE (ROXICODONE) 5 MG IMMEDIATE RELEASE TABLET Take 1 tablet (5 mg) by mouth every 6 hours asneeded for severe pain (7-10) for up to 5 days. (Comment: Please note this report has been produced using speech recognition software and may contain errors related to that system including errors in grammar, punctuation, and spelling, as well as words and phrases that may be inappropriate. If there are any questions or concerns please feel freeto contact the dictating provider for clarification.) Bhupinder Boyd MD (electronically signed) Emergency Medicine Provider [facility] Bhupinder Boyd MD 10/01/23 0253 documented in this [facility]08-21-2024 Physician Emergency department Note* Bhupinder Boyd MD - 2023 10:20 PM EDT EMERGENCY DEPARTMENT ENCOUNTER Pt Name: Roro Valdivia Birthdate 1985 Date of evaluation: 2023 ED Provider: Bhupinder Boyd MD CHIEF COMPLAINT Chief Complaint Patient presents with Abdominal Pain Pt arrives to the ED with abd pain. Pt states he has had pancreatitis and that the pain is a 10/10.Pt states something is twisting inside of my stomach. HISTORY OF PRESENT ILLNESS I wore appropriate PPE for the entirety of this encounter. HPI Roro Valdivia is a 38 y.o. person who presents to the emergency department with history of alcohol use disorder as well as opiate use disorder presenting with concern for epigastric abdominal pain.He reports he has not been drinking much alcohol today and is feeling slight signs of withdrawal. He also endorses nausea and vomiting ongoing for the last day he has had pancreatitis in the past andstates it feels somewhat similar. Nursing Notes were reviewed. Limitations to history: None Outside historians: None REVIEW OF SYSTEMS Review of Systems Gastrointestinal: Positive for abdominal pain, nausea and vomiting. PAST MEDICAL HISTORY Past Medical History: Diagnosis Date Alcohol withdrawal syndrome without complication (HCC) 06/27/2022 Alcohol withdrawal with inpatient treatment, uncomplicated (HCC) 03/15/2022 GERD (gastroesophageal reflux disease) History of pancreatitis 01/07/2023 Hypertension Pancreatitis Seizures (HCC) SVT (supraventricular tachycardia) (HCC) Tourette syndrome SURGICAL HISTORY Past Surgical History: Procedure Laterality Date APPENDECTOMY CURRENT MEDICATIONS Previous Medications BUPRENORPHINE-NALOXONE (SUBOXONE) 8-2 MG PER SUBLINGUAL FILM Place 1 Film under the tongue daily for 14 days. BUPRENORPHINE-NALOXONE (SUBOXONE) 8-[address] 1 tablet under the tongue daily. CLONIDINE (CATAPRES) 0.1 MG TABLET Take 1 tablet (0.1 mg) by mouth 3 times daily. HYDROXYZINE HCL (ATARAX) 50 MG TABLET Take 1 tablet (50 mg) by mouth 2 times daily as needed for anxiety. MELATONIN 5 MG TABLET Take 1 tablet (5 mg) by mouth Nightly as needed (insomnia). METOPROLOL SUCCINATE XL (TOPROL-XL) 25 MG 24 HR TABLET Take 2 tablets (50 mg) by mouth daily. Do not crush or chew. OMEPRAZOLE (PRILOSEC) [address] CAPSULE Take 1 capsule (20 mg) by mouth every morning (before breakfast). Do not crush or chew. RISPERIDONE (RISPERDAL) 0.5 MG TABLET Take 1 tablet (0.5 mg) by mouth 2 times daily. VENLAFAXINE XR (EFFEXOR XR) 37.5 MG 24 HR CAPSULE Take 1 capsule (37.5 mg) by mouth daily. Take with 1 capsule (75mg) by mouth daily for total dose of 112.5mg. Do not crush or chew. ALLERGIES Patient has no known allergies. FAMILY HISTORY Family History Problem Relation Name Age of Onset No Known Problems Mother No Known Problems Father SOCIAL HISTORY Social History Socioeconomic History Marital status: Single Tobacco Use Smoking status: Every Day Current packs/day: 1.00 Types: Cigarettes Smokeless tobacco: Never Vaping Use Vaping status: Never Used Substance and Sexual Activity Alcohol use: Yes Comment: 2/5 vodka daily Drug use: Not Currently Types: Cocaine, Methamphetamines, Oxycodone, Fentanyl, Heroin, Benzodiazepines Sexual activity: Not Currently Social Determinants of Health Financial Resource Strain: High Risk (08/11/2023) Overall Financial Resource Strain (CARDIA) Difficulty of Paying Living Expenses: Very hard Food Insecurity: Food Insecurity Present (08/11/2023) Hunger Vital Sign Worried About Running Out of Food in the Last Year: Often true Ran Out of Food in the Last Year: Often true Transportation Needs: No Transportation Needs (08/11/2023) PRAPARE - Transportation Lack of Transportation (Medical): No Lack of Transportation (Non-Medical): No Recent Concern: Transportation Needs - Unmet Transportation Needs (06/26/2023) PRAPARE - Transportation Lack of Transportation (Medical): Yes Lack of Transportation (Non-Medical): Yes Physical Activity: Inactive (08/11/2023) Exercise Vital Sign Days of Exercise per Week: 0 days Minutes of Exercise per Session: 0 min Stress: Stress Concern Present (08/11/2023) [employer] - Occupational Stress Questionnaire Feeling of Stress : Very much Social Connections: Socially Isolated (08/11/2023) Social Connection and Isolation Panel [NHANES] Frequency of Communication with Friends and Family: Never Frequency of Social Gatherings with Friends and Family: Never Attends [employer] Services: Never Active Member of Clubs or Organizations: No Attends Club or Organization Meetings: Never Marital Status: Never Intimate Partner Violence: Not At Risk (08/11/2023) Humiliation, Afraid, Rape, and Kick questionnaire Fear of Current or Ex-Partner: No Emotionally Abused: No Physically Abused: No Sexually Abused: No Housing Stability: High Risk (08/11/2023) Housing Stability Vital Sign Unable to Pay for Housing in the Last Year: Yes Number of Times Moved in the Last Year: 0 Homeless in the Last Year: Yes SCREENINGS PHYSICAL EXAM ED Triage Vitals [09/30/23 2222] Temp Heart Rate Resp BP 36.5 C (97.7 F) 100 16 (!) 182/119 SpO2 Temp Source Heart Rate Source Patient Position 96 % Temporal Monitor -- BP Location FiO2 (%) -- -- Physical Exam Vitals and nursing note reviewed. Constitutional: General: He is not in acute distress. Appearance: He is well-developed. HENT: Head: Normocephalic and atraumatic. Eyes: Conjunctiva/sclera: Conjunctivae normal. Cardiovascular: Rate and Rhythm: Normal rate and regular rhythm. Heart sounds: No murmur heard. Pulmonary: Effort: Pulmonary effort is normal. No respiratory distress. Breath sounds: Normal breath sounds. Abdominal: Palpations: Abdomen is soft. Tenderness: There is abdominal tenderness in the epigastric area. Musculoskeletal: General: No swelling. Cervical back: Neck supple. Skin: General: Skin is warm and dry. Capillary Refill: Capillary refill takes less than 2 seconds. Neurological: Mental Status: He is alert. Comments: Slight tremoring noted Psychiatric: Mood and Affect: Mood normal. DIAGNOSTIC RESULTS RADIOLOGY (Per Emergency Physician): Interpretation per the Radiologist below, if available at the time of this note: No orders to display EKG Interpretation: LABS: Labs Reviewed COMPREHENSIVE METABOLIC PANEL - Abnormal Result Value SODIUM 137 POTASSIUM 3.4 (*) CHLORIDE 100 CARBON DIOXIDE 24 ANION GAP 13 UREA NITROGEN 3 (*) CREATININE 0.55 (*) GLUCOSE 106 (*) CALCIUM 9.7 AST (SGOT) 364 (*) ALT 408 (*) ALKALINE PHOSPHATASE 117 ALBUMIN 4.7 BILIRUBIN, TOTAL 0.8 TOTAL PROTEIN 8.0 eGFR >90.0 LIPASE - Abnormal LIPASE 2,537 (*) COMPLETE URINALYSIS - Abnormal Color, Urine Yellow Clarity, Urine Clear pH, Urine 6.0 Leukocytes, Urine Negative Nitrite, Urine Negative Protein, Urine 10 (*) Glucose, Urine Normal Bilirubin, Urine Negative Ketones, Urine Negative Urobilinogen, Urine Normal Blood, Urine Negative RBC, Urine 0-2 WBC, Urine 0-2 Squamous Epithelial, Urine 0-2 Bacteria, Urine Negative Mucus, Urine Moderate (*) SPECIFIC GRAVITY OF URINE (NUMERIC) 1.020 CBC WITH AUTO DIFFERENTIAL - Normal Auto WBC 6.7 RBC 4.59 Hemoglobin 14.3 Hematocrit 42.1 MCV 91.7 MCH 31.2 MCHC 34.0 RDW 14.2 Platelets 226 MPV 9.5 nRBC 0.0 Neutrophils Relative 52.5 Lymphocytes Relative 39.2 Monocytes Relative 6.4 Eosinophils Relative 0.7 Basophils Relative 0.6 Immature Grans % 0.6 Neutrophils Absolute 3.5 Lymphocytes Absolute 2.6 Monocytes Absolute 0.4 Eosinophils Absolute 0.1 Basophils Absolute 0.0 Immature Grans Absolute 0.0 COMPLETE URINALYSIS WITH REFLEX TO CULTURE Narrative: The following orders were created for panel order Complete Urinalysis with reflex to Culture. Procedure Abnormality Status --------- ------ Complete Urinalysis[[id number]] Abnormal Final result Please view results for these tests on the individual orders. All other labs were within normal range or not returned as of this dictation. EMERGENCY DEPARTMENT COURSE and DIFFERENTIAL DIAGNOSIS/MDM: Vitals: Vitals: 09/30/23 2222 BP: (!) 182/119 Pulse: 100 Resp: 16 Temp: 36.5 C (97.7 F) TempSrc: Temporal SpO2: 96% Medications Administered in the ED: Medications oxyCODONE (Roxicodone) immediate release tablet 5 mg (has no administration in time range) oxyCODONE (Roxicodone) immediate release tablet 5 mg (5 mg Oral Given 10/01/23 012) ondansetron (Zofran) injection 4 mg (4 mg IntraVENous Given 10/01/23 0126) sodium chloride 0.9 % bolus 1,000 mL (0 mL IntraVENous Stopped 10/01/23 022) LORazepam (Ativan) injection 1 mg (1 mg IntraVENous Given 10/01/23 0146) With concern for abdominal pain nausea and vomiting PROCEDURES: Unless otherwise noted below, none Procedures Differential Diagnosis Considerations: Pancreatitis, gastroenteritis, gastritis Sources of History: Patient ED Course: Workup was initiated in triage with protocol eyes orders. Vital signs did show some slight tachycardia as well as hypertension. Patient reports he has not been to eat or drink too much today secondary to his abdominal pain nausea and vomiting workup does show elevated lipase of 2500 elevated AST and ALT slightly worse than previous although likely related to his chronic alcohol use although normal bilirubin less concern for any gallbladder pathology at this point in time we will give him Ativan, pain control and fluids and reassess. If he is tolerating p.o. intake without any emesis may be safe for discharge with short course of pain medication nausea medication. Otherwise may require admission for withdrawal symptoms along with pancreatitis Reassessment: Patient feeling slightly improved able to tolerate p.o. intake. He reports he has been clean from alcohol except for Thursday where he had binge due to his birthday. Likely the cause of his pancreatitis. He reportedly has not been taking Suboxone as they weaned him off of it and will prescribe a short course of pain medication as he is comfortable with plan of discharge home and strict return precautions if symptoms are worsening Consideration of Admission/Observation: Independent Interpretation of Tests: Diagnostic Tests Considered but not Performed: Prescription Medications Considered but not Prescribed: Chronic Conditions Affecting Care: FINAL IMPRESSION 1. Alcohol-induced acute pancreatitis, unspecified complication status DISPOSITION Discharge 10/01/2023 02:51:53 AM CRITICAL CARE TIME PATIENT REFERRED TO: No follow-up provider specified. DISCHARGE MEDICATIONS: New Prescriptions ONDANSETRON ODT (ZOFRAN-ODT) 4 MG DISINTEGRATING TABLET Take 1 tablet (4 mg) by mouth every 8 hoursas needed for nausea or vomiting for up to 7 days. OXYCODONE (ROXICODONE) 5 MG IMMEDIATE RELEASE TABLET Take 1 tablet (5 mg) by mouth every 6 hours asneeded for severe pain (7-10) for up to 5 days. (Comment: Please note this report has been produced using speech recognition software and may contain errors related to that system including errors in grammar, punctuation, and spelling, as well as words and phrases that may be inappropriate. If there are any questions or concerns please feel freeto contact the dictating provider for clarification.) Bhupinder Boyd MD (electronically signed) Emergency Medicine Provider [facility] Bhupinder Boyd MD 10/01/23 0253 [id number] History of Present illness Narrative* Nikky Escobar MD - 09/23/2023 2:30 PM EDT Images from the original note were not included. MEDICATION ASSISTED TREATMENT FOLLOW UP VISIT Patient: Roro Valdivia __ Chief complaint Subjective Roro Valdivia, a 37 y.o. male, who presents for a follow-up MAT appointment. -even at 75mg of Effexor, had significant muscle twitching (myoclonus?) but has not experienced this at 37.5mg of effexor and feels this dose still offers anxiety and depression relief, would like tocontinue -notes tics have been worse, would like to increase risperdal; still taking clonidine -has been sleeping better with melatonin -hasn't drank x 3 days, hopeful to continue this though uncertain with birthday coming up -notes he would like to taper off Suboxone 2/2 significant erectile dysfunction; does note concern with low testosterone and is overdue for general labs through PCP -would like to discuss ED options with PCP -still interested in tapering off suboxone, discussed plan for this with Dr. Orta and pt (cutting quarter/~2mg of film daily until next visit in 2 weeks) -send atarax ahead for as needed anxiety relief -birthday upcoming, will plan for revisiting plans with Maximilian after Review of systems: Denies suicidal or homicidal ideation denies tactile auditory or visual hallucinations today All of systems ROS was completed and was negative unless stated above Objective Physical Exam Constitutional: General: He is not in acute distress. Appearance: He is not diaphoretic. HENT: Head: Normocephalic and atraumatic. Nose: No rhinorrhea. Cardiovascular: Rate and Rhythm: Normal rate. Pulmonary: Effort: Pulmonary effort is normal. No respiratory distress. Neurological: Mental Status: He is alert and oriented to person, place, and time. Comments: Various motor tics noted Psychiatric: Attention and Perception: He does not perceive auditory or visual hallucinations. Mood and Affect: Mood is not anxious or depressed. Behavior: Behavior is cooperative. Thought Content: Thought content does not include homicidal or suicidal ideation. Current Outpatient Medications Medication Sig Dispense Refill buprenorphine-naloxone (Suboxone) 8-2 MG per sublingual film Place 1 Film under the tongue daily for 14 days. 14 Film 0 buprenorphine-naloxone (Suboxone) 8-[address] 1 tablet under the tongue daily. 7 tablet 0 cloNIDine (Catapres) 0.1 MG tablet Take 1 tablet (0.1 mg) by mouth 3 times daily. 90 tablet 0 melatonin 5 MG tablet Take 1 tablet (5 mg) by mouth Nightly as needed (insomnia). 30 tablet 1 metoprolol succinate XL (Toprol-XL) 25 MG 24 hr tablet Take 2 tablets (50 mg) by mouth daily. Do not crush or chew. (Patient taking differently: Take 50 mg by mouth daily. Do not crush or chew.) 30 tablet 3 omeprazole (PriLOSEC) [address] capsule Take 1 capsule (20 mg) by mouth every morning (before breakfast). Do not crush or chew. 30 capsule 0 risperiDONE (RisperDAL) 0.25 MG tablet Take 1 tablet (0.25 mg) by mouth 2 times daily. 60 tablet 0 venlafaxine XR (Effexor XR) 37.5 MG 24 hr capsule Take 1 capsule (37.5 mg) by mouth daily. Take with 1 capsule (75mg) by mouth daily for total dose of 112.5mg. Do not crush or chew. 30 capsule 1 venlafaxine XR (Effexor XR) 75 MG 24 hr capsule Take 1 capsule (75 mg) by mouth daily (with breakfast). Do not crush or chew. 90 capsule 0 No current facility-administered medications for this visit. OARRS: Reviewed and no inconsistencies or concerns. Assessment & Plan No diagnosis found. No orders of the defined types were placed in this encounter. 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 Continue 12-step meeting attendance (goal of 2 per week). 2. Actively communicate with sponsor. 3. Take medication as directed and report any negative side effects or missed doses. 4. Report any illicit drug use to either the briefcase sewer or myself/my staff. 5. Keep medicine out of the reach of children. 6. Follow-up with recommended level of care. Interventions in Session: 1. Discussed patient's progress in their 12-step program. 2. Discussed progress in recovery and overall well-being. 3. Discussed stressors/triggers for a potential relapse & related coping mechanisms. -Follow up in 2 week This patient was staffed with Dr. Orta. Nikky Escobar MD Addiction Medicine 09/23/2023 at 12:48 PM Associated attestation - Carlitos Orta MD - 09/23/2023 5:02 PM EDT I saw and evaluated the patient, participating in the erickson portions of the service. We reviewed the patient's medical record and test results. I personally spent over half of a total 15 minutes in counseling and discussion with the patient and coordination of care. This included a face to face evaluation and physical examination, and documenting clinical information on the day of visit. I have reviewed the fellow's note. I agree with the fellow s findings and plan, with any additions or corrections listed below: Suggested he follow up with urology regarding Low T/ED. documented in this [facility]08-09-2024 Telephone encounter Note* Telephone Encounter - Nikky Escobar MD - 09/18/2023 1:31 PM EDT Called Roro and left a message with instructions to discontinue medications, treat sx as they arisewith OTC medication, go to the ED if any sx escalate. -Nikky Escobar MD electronically signed this at 1:31 PM [id number] Miscellaneous Notes* Telephone Encounter - Nikky Escobar MD - 09/18/2023 1:31 PM EDT Called Roro and left a message with instructions to discontinue medications, treat sx as they arisewith OTC medication, go to the ED if any sx escalate. -Nikky Escobar MD electronically signed this at 1:31 PM * Telephone Encounter - Sol Guo RN - 09/18/2023 7:20 AM EDT S: Patient called the clinical access center with complaint of medication reaction B: He is reporting Venlafaxine is causing side effects , He is having jerking movements A: He is reporting Venlafaxine 150 mg was causing hallucinations. The dose was decreased to 37.5 mg, He is reporting he had body twitching that lasted most of the night . Symptoms are now resolving . He stated he will not take any more of that drug. He is drinking water and denies shortness of breath. R: He can be reached at [phone]. He is asking to call multiple times if her does not answer. He may be sleeping since he was up all night Patient instructed to call back with worsening symptoms,concerns or questions. Reason for Disposition [1] Caller has URGENT medicine question about med that PCP or specialist prescribed AND [2] triagerunable to answer question Protocols used: Medication Question [id number] documented in this [facility]08-09-2024 Telephone encounter Note* Telephone Encounter - Sol Guo RN - 09/18/2023 7:20 AM EDT S: Patient called the clinical access center with complaint of medication reaction B: He is reporting Venlafaxine is causing side effects , He is having jerking movements A: He is reporting Venlafaxine 150 mg was causing hallucinations. The dose was decreased to 37.5 mg, He is reporting he had body twitching that lasted most of the night . Symptoms are now resolving . He stated he will not take any more of that drug. He is drinking water and denies shortness of breath. R: He can be reached at [phone]. He is asking to call multiple times if her does not answer. He may be sleeping since he was up all night Patient instructed to call back with worsening symptoms,concerns or questions. Reason for Disposition [1] Caller has URGENT medicine question about med that PCP or specialist prescribed AND [2] triagerunable to answer question Protocols used: Medication Question [id number] [id number] History of Present illness Narrative* Nikky Escobar MD - 09/16/2023 2:30 PM EDT Images from the original note were not included. MEDICATION ASSISTED TREATMENT FOLLOW UP VISIT Patient: Roro Valdivia __ Chief complaint Subjective Roro Valdivia, a 37 y.o. male, who presents for a follow-up MAT appointment. -since increased effexor, has had increased muscle twitching and recently hallucinations, difficulty sleeping due to twitching, concerned about serotonin syndrome - notes he also took a full dose of compazine that day (typically taking half doses otherwise) -does note that prior to muscle twithces and hallucinations yesterday, had signficiant reduction inanxiety -interested in a midway dose, amenable to take Effexor 112.5 (75+37.5) -also interested in starting Risperdone for tics, discusssed 0.25mg BID -would like to discontinue trazodone and hydroxyzine, feels they have not been helpfuly - amenable to rec of melatonin as an alternative -still drinking infrequently, not daily - would like to drink on upcoming birthday, but interested in [place] and seeking employment after birthday -still going to meetings intermittently Review of systems: Denies suicidal or homicidal ideation denies tactile auditory or visual hallucinations today All of systems ROS was completed and was negative unless stated above Objective Physical Exam Constitutional: General: He is not in acute distress. Appearance: He is not diaphoretic. HENT: Head: Normocephalic and atraumatic. Nose: No rhinorrhea. Cardiovascular: Rate and Rhythm: Normal rate. Pulmonary: Effort: Pulmonary effort is normal. No respiratory distress. Neurological: Mental Status: He is alert and oriented to person, place, and time. Comments: Various motor tics noted Psychiatric: Attention and Perception: He does not perceive auditory or visual hallucinations. Mood and Affect: Mood is not anxious or depressed. Behavior: Behavior is cooperative. Thought Content: Thought content does not include homicidal or suicidal ideation. Current Outpatient Medications Medication Sig Dispense Refill buprenorphine-naloxone (Suboxone) 8-2 [address] film [address] 1 Film under the tongue daily for 14 days. 14 Film 0 buprenorphine-naloxone (Suboxone) 8-[address] 1 tablet under the tongue daily. 7 tablet 0 cloNIDine (Catapres) 0.1 MG tablet Take 1 tablet (0.1 mg) by mouth 3 times daily. 90 tablet 0 melatonin 5 MG tablet Take 1 tablet (5 mg) by mouth Nightly as needed (insomnia). 30 tablet 1 metoprolol succinate XL (Toprol-XL) 25 MG 24 hr tablet Take 2 tablets (50 mg) by mouth daily. Do not crush or chew. (Patient taking differently: Take 50 mg by mouth daily. Do not crush or chew.) 30 tablet 3 omeprazole (PriLOSEC) [address] capsule Take 1 capsule (20 mg) by mouth every morning (before breakfast). Do not crush or chew. 30 capsule 0 risperiDONE (RisperDAL) 0.25 MG tablet Take 1 tablet (0.25 mg) by mouth 2 times daily. 60 tablet 0 venlafaxine XR (Effexor XR) 37.5 MG 24 hr capsule Take 1 capsule (37.5 mg) by mouth daily. Take with 1 capsule (75mg) by mouth daily for total dose of 112.5mg. Do not crush or chew. 30 capsule 1 venlafaxine XR (Effexor XR) 75 MG 24 hr capsule Take 1 capsule (75 mg) by mouth daily (with breakfast). Do not crush or chew. 90 capsule 0 No current facility-administered medications for this visit. OARRS: Reviewed and no inconsistencies or concerns. Assessment & Plan 1. Severe opioid use disorder (HCC) 2. Motor tic disorder 3. Major depressive disorder, recurrent episode, moderate (HCC) 4. RODRIGUEZ (generalized anxiety disorder) 5. Severe alcohol use disorder (HCC) Orders Placed This Encounter Procedures MEDICATION ASSISTED TREATMENT PANEL Standing Status: Future Number of Occurrences: 1 Standing Expiration Date: 09/15/2024 Severe opioid use disorder (HCC) Severe Alcohol Use Disorder BZD use disorder in remission Stimulant use disorder in remission Nicotine Use disorder - MEDICATION ASSISTED TREATMENT PANEL - buprenorphine-naloxone (Suboxone) 8-2 MG SL tablet; Place 1 tablet under the tongue daily -continue phenergan 25mg prn for intermittent N/V at home -discussed NRT MDD RODRIGUEZ Tic Disorder -decrease effexor to 112.5mg daily -start risperidone 0.25mg BID -continue clonidine 0.1mg TID -discontinue trazodone, hydroxyzine Patient Goals: 1. Continue 12-step meeting attendance (goal of 2 per week). 2. Actively communicate with sponsor. 3. Take medication as directed and report any negative side effects or missed doses. 4. Report any illicit drug use to either the briefcase sewer or myself/my staff. 5. Keep medicine out of the reach of children. 6. Follow-up with recommended level of care. Interventions in Session: 1. Discussed patient's progress in their 12-step program. 2. Discussed progress in recovery and overall well-being. 3. Discussed stressors/triggers for a potential relapse & related coping mechanisms. -Follow up in 1 week This patient was staffed with Dr. Orta. Nikky Escobar MD Addiction Medicine 09/16/2023 at 4:15 PM Associated attestation - Stone Ramsey MD - 09/16/2023 4:53 PM EDT Patient seen and examined by me. Discussed patient with the resident/fellow/KOBY. Agree with assessment and plan as written. I provided discussion regarding this patient's condition ,chemical dependency, psychiatric and medical history, symptoms and signs , reviewing past detoxification hospitalizations, assessing withdrawal status, evaluating detoxification medications, and discussing lab work and treatment plan ,importance of compliance with the treatment with providing options, as well as documenting on the day of the visit. Stone Ramsey MD 09/16/23 4:53 PM documented in this [facility]07-31-2024 History of Present illness Narrative* Nikky Escobar MD - 09/09/2023 2:30 PM EDT Images from the original note were not included. MEDICATION ASSISTED TREATMENT INITIAL VISIT Patient: Roro Valdivia __ Chief complaint Subjective Roro Royal Valdivia, a 37 y.o. male, who presents for a follow-up MAT appointment. -previous UDS positive for alcohol - notes he has drank small bits of beer in the morning due to increase in panic and anxiety, which has been worst in the mornings -notes nausea and vomitting in the mornings as well -seems this has increased since tapering down on zyprexa; also discontinued GBP in same timeline -discussed previously plan of switching to risperidone to target tics, discussed how anxiety is causing him more distress and may be better to target this instead - pt amenable to this and increase in Effexor in order to better address anxiety and panic -will dc zyprexa but hold off on starting risperdone -typically having at least 1 dose of clonidine, usually 2 but sometimes missing second dose - may also be causing rebound anxiety? -sleep remains poor -eating 1 meal a day, dinner -smoked some weed recently -no relapses on opiates, denies any other drug use -still smoking about 2 ppd cigarettes -asks about bloodwork to monitor liver function - states he had pancreatitis x 3 several years ago,had increased LFTs on recent detox adm, interested in bloodwork to monitor -still attending meetings -notes after birthday, still interested olivia job or going to [facility] for rehab Review of systems: Denies suicidal or homicidal ideation denies tactile auditory or visual hallucinations All of systems ROS was completed and was negative unless stated above Objective Physical Exam Constitutional: General: He is not in acute distress. Appearance: He is not diaphoretic. HENT: Head: Normocephalic and atraumatic. Nose: No rhinorrhea. Cardiovascular: Rate and Rhythm: Normal rate. Pulmonary: Effort: Pulmonary effort is normal. No respiratory distress. Neurological: Mental Status: He is alert and oriented to person, place, and time. Comments: Various motor tics noted Psychiatric: Attention and Perception: He does not perceive auditory or visual hallucinations. Mood and Affect: Mood is not anxious or depressed. Behavior: Behavior is cooperative. Thought Content: Thought content does not include homicidal or suicidal ideation. Current Outpatient Medications Medication Sig Dispense Refill buprenorphine-naloxone (Suboxone) 8-2 MG per [address] film [address] 1 Film under the tongue daily for 14 days. 14 Film 0 buprenorphine-naloxone (Suboxone) 8-[address] 1 tablet under the tongue daily. 7 tablet 0 cloNIDine (Catapres) 0.1 MG tablet Take 1 tablet (0.1 mg) by mouth 3 times daily. 90 tablet 0 gabapentin (Neurontin) 100 MG capsule Take 1 capsule (100 mg) by mouth 2 times daily. 60 capsule 0 hydrOXYzine pamoate (Vistaril) 50 MG capsule Take 1 capsule (50 mg) by mouth 2 times daily as needed for anxiety. 60 capsule 0 metoprolol succinate XL (Toprol-XL) 25 MG 24 hr tablet Take 2 tablets (50 mg) by mouth daily. Do not crush or chew. (Patient taking differently: Take 50 mg by mouth daily. Do not crush or chew.) 30 tablet 3 OLANZapine (ZyPREXA) 5 MG tablet Take 0.5 tablets (2.5 mg) by mouth 2 times daily. 30 tablet 0 omeprazole (PriLOSEC) [address] capsule Take 1 capsule (20 mg) by mouth every morning (before breakfast). Do not crush or chew. 30 capsule 0 traZODone (Desyrel) 100 MG tablet Take 1 tablet (100 mg) by mouth Nightly. 30 tablet 0 venlafaxine XR (Effexor XR) 150 MG 24 hr capsule Take 1 capsule (150 mg) by mouth daily. Do not crush or chew. 30 capsule 1 venlafaxine XR (Effexor XR) 75 MG 24 hr capsule Take 1 capsule (75 mg) by mouth daily (with breakfast). Do not crush or chew. 90 capsule 0 No current facility-administered medications for this visit. OARRS: Reviewed and no inconsistencies or concerns. Assessment & Plan 1. Opioid withdrawal (HCC) 2. Severe alcohol use disorder (HCC) 3. Major depressive disorder, recurrent episode, moderate (HCC) 4. RODRIGUEZ (generalized anxiety disorder) 5. Motor tic disorder Orders Placed This Encounter Procedures Comprehensive metabolic panel Standing Status: Future Number of Occurrences: 1 Standing Expiration Date: 09/08/2024 CBC Standing Status: Future Number of Occurrences: 1 Standing Expiration Date: 09/08/2024 POCT INR manually resulted Severe opioid use disorder (HCC) Severe Alcohol Use Disorder BZD use disorder in remission Stimulant use disorder in remission Nicotine Use disorder - MEDICATION ASSISTED TREATMENT PANEL - buprenorphine-naloxone (Suboxone) 8-2 MG SL tablet; Place 1 tablet under the tongue daily for 7 days. Dispense: 21 tablet; Refill: 0 -ordered phenergan 25mg prn for intermittent N/V at home -discussed NRT MDD RODRIGUEZ Tic Disorder -increase effexor to 150mg daily -continue clonidine 0.1mg TID -discontinue GBP, zyprexa Patient Goals: 1. Continue 12-step meeting attendance (goal of 2 per week). 2. Actively communicate with sponsor. 3. Take medication as directed and report any negative side effects or missed doses. 4. Report any illicit drug use to either the briefcase sewer or myself/my staff. 5. Keep medicine out of the reach of children. 6. Follow-up with recommended level of care. Interventions in Session: 1. Discussed patient's progress in their 12-step program. 2. Discussed progress in recovery and overall well-being. 3. Discussed stressors/triggers for a potential relapse & related coping mechanisms. -Follow up in 1 week This patient was staffed with Dr. Orta. Nikky Escobar MD Addiction Medicine 09/09/2023 at 4:10 PM Associated attestation - Carlitos Orta MD - 09/09/2023 5:06 PM EDT Indirect Supervision Attestation During or immediately after this visit, I discussed this case with the treating fellow. Our discussion included the history obtained by the fellow, the fellow's exam findings, and the fellow's treatment plan. I agree with the assessment and plan as documented in the fellow's note (and any addendum's are listed below). Please see fellow s note for further details. This service has been performed by a fellow without the presence of a teaching physician under the primary care exception (GE Modifier). documented in this [facility]07-24-2024 History of Present illness Narrative* Nikky Escobar MD - 09/02/2023 2:30 PM EDT Images from the original note were not included. MEDICATION ASSISTED TREATMENT INITIAL VISIT Patient: Roro Valdivia __ Chief complaint Subjective Roro Valdivia, a 37 y.o. male, who presents for a follow-up MAT appointment. -remains sober from all substances -trouble sleeping in the last few days despite trazodone, particularly the last 2 nights; woke up with jerking related to a dream, notes also smoking significantly at night -ideally would like to sleep by 10am, but not falling asleep until 3AM-5AM -waking up with a lot of anxiety and panic -tapering off zyprexa successfully, taking 2.5mg daily now - would like to dc due to significant weight gain -does not feel reduction in zyprexa affected anxiety or experience of tics -notes consideration of pursuing disability -has been generally consistent with effexor, but at different AM times and sometimes missing doses -discussed importance in consistency with effexor and how this may be contributing to anxiety, as well as inconsistent sleep schedule -notes interest in reducing nicotine - collaboratively discussed things he can do instead, including coloring or playing guitar; recommended these in light of improving sleep hygiene as well -discussed trial of risperidone at night instead of zyprexa in light of persistent tics; notes he also has vocal tics -considering [facility] IOP after his birthday, asking friend for a gym membership for his birthday as artur -still attending meetings -21 days sober Review of systems: Denies suicidal or homicidal ideation denies tactile auditory or visual hallucinations All of systems ROS was completed and was negative unless stated above Objective Physical Exam Constitutional: General: He is not in acute distress. Appearance: He is not diaphoretic. HENT: Head: Normocephalic and atraumatic. Nose: No rhinorrhea. Cardiovascular: Rate and Rhythm: Normal rate. Pulmonary: Effort: Pulmonary effort is normal. No respiratory distress. Neurological: Mental Status: He is alert and oriented to person, place, and time. Comments: Various motor tics noted Psychiatric: Attention and Perception: He does not perceive auditory or visual hallucinations. Mood and Affect: Mood is not anxious or depressed. Behavior: Behavior is cooperative. Thought Content: Thought content does not include homicidal or suicidal ideation. Current Outpatient Medications Medication Sig Dispense Refill buprenorphine-naloxone (Suboxone) 8-2 MG per sublingual film Place 1 Film under the tongue daily for 14 days. 14 Film 0 buprenorphine-naloxone (Suboxone) 8-[address] 1 tablet under the tongue daily. 7 tablet 0 cloNIDine (Catapres) 0.1 MG tablet Take 1 tablet (0.1 mg) by mouth 3 times daily. 90 tablet 0 gabapentin (Neurontin) 100 MG capsule Take 1 capsule (100 mg) by mouth 2 times daily. 60 capsule 0 hydrOXYzine pamoate (Vistaril) 50 MG capsule Take 1 capsule (50 mg) by mouth 2 times daily as needed for anxiety. 60 capsule 0 metoprolol succinate XL (Toprol-XL) 25 MG 24 hr tablet Take 2 tablets (50 mg) by mouth daily. Do not crush or chew. (Patient taking differently: Take 50 mg by mouth daily. Do not crush or chew.) 30 tablet 3 OLANZapine (ZyPREXA) 5 MG tablet Take 0.5 tablets (2.5 mg) by mouth 2 times daily. 30 tablet 0 omeprazole (PriLOSEC) [address] capsule Take 1 capsule (20 mg) by mouth every morning (before breakfast). Do not crush or chew. 30 capsule 0 traZODone (Desyrel) 100 MG tablet Take 1 tablet (100 mg) by mouth Nightly. 30 tablet 0 venlafaxine XR (Effexor XR) 75 MG 24 hr capsule Take 1 capsule (75 mg) by mouth daily (with breakfast). Do not crush or chew. 90 capsule 0 No current facility-administered medications for this visit. OARRS: Reviewed and no inconsistencies or concerns. Assessment & Plan Substance dependence disorder 1. Severe opioid use disorder (HCC) 2. Major depressive disorder, recurrent episode, moderate (HCC) 3. RODRIGUEZ (generalized anxiety disorder) 4. Motor tic disorder Orders Placed This Encounter Procedures MEDICATION ASSISTED TREATMENT PANEL Standing Status: Future Number of Occurrences: 1 Standing Expiration Date: 09/01/2024 Severe opioid use disorder (HCC) Severe Alcohol Use Disorder BZD use disorder in remission, Stimulant use disorder in remission - MEDICATION ASSISTED TREATMENT PANEL - buprenorphine-naloxone (Suboxone) 8-2 MG SL tablet; Place 1 tablet under the tongue daily for 7 days. Dispense: 21 tablet; Refill: 0 -ordered phenergan 25mg prn for intermittent N/V at home MDD RODRIGUEZ Tic Disorder -continue effexor 75mg daily -clonidine 0.1mg TID -GBP 300mg TID -zyprexa 2.5mg BID (hope to taper down) Patient Goals: 1. Continue 12-step meeting attendance (goal of 2 per week). 2. Actively communicate with sponsor. 3. Take medication as directed and report any negative side effects or missed doses. 4. Report any illicit drug use to either the briefcase sewer or myself/my staff. 5. Keep medicine out of the reach of children. 6. Follow-up with recommended level of care. Interventions in Session: 1. Discussed patient's progress in their 12-step program. 2. Discussed progress in recovery and overall well-being. 3. Discussed stressors/triggers for a potential relapse & related coping mechanisms. -Follow up in 1 week This patient was staffed with Dr. Orta. Nikky Escobar MD Addiction Medicine 09/02/2023 at 3:55 PM Associated attestation - Carlitos Orta MD - 09/02/2023 4:42 PM EDT Indirect Supervision Attestation During or immediately after this visit, I discussed this case with the treating fellow. Our discussion included the history obtained by the fellow, the fellow's exam findings, and the fellow's treatment plan. I agree with the assessment and plan as documented in the fellow's note (and any addendum's are listed below). Please see fellow s note for further details. This service has been performed by a fellow without the presence of a teaching physician under the primary care exception (GE Modifier). documented in this [facility]07-17-2024 History of Present illness Narrative* Nikky Escobar MD - 08/26/2023 4:00 PM EDT PATIENT: Roro Valdivia Chief complaint Subjective Roro Valdivia, a 37 y.o. male, who presents for a follow-up MAT appointment. -planning for job -went to NA meetings, has been a good experience -going a few times a week, sometimes to multiple a day -ticks still present -notes anxiety when he starts feeling anxious at meetings, but has been sitting through them and they've become easier - we discussed how this trend will -anxiety has been largely stable, some episodes of infrequent heightened anxiety but has been able to cope with these - discussed how he has been coping and other options -still feels anxiety, but does feel capable in managing it -15 days sober -interested in overall med reduction, particularly targeting zyprexa -was on campral before with little efficacy, feels best for cravings has been subs -Smoking up to 2 packs a day Review of systems: Denies suicidal or homicidal ideation denies tactile auditory or visual hallucinations All of systems ROS was completed and was negative unless stated above Objective Physical Exam Constitutional: General: He is not in acute distress. Appearance: He is not diaphoretic. HENT: Head: Normocephalic and atraumatic. Nose: No rhinorrhea. Cardiovascular: Rate and Rhythm: Normal rate. Pulmonary: Effort: Pulmonary effort is normal. No respiratory distress. Neurological: Mental Status: He is alert and oriented to person, place, and time. Comments: Various motor tics noted Psychiatric: Attention and Perception: He does not perceive auditory or visual hallucinations. Mood and Affect: Mood is not anxious or depressed. Behavior: Behavior is cooperative. Thought Content: Thought content does not include homicidal or suicidal ideation. Current Outpatient Medications Medication Sig Dispense Refill buprenorphine-naloxone (Suboxone) 8-2 MG per sublingual film Place 1 Film under the tongue daily for 4 days. 4 Film 0 buprenorphine-naloxone (Suboxone) 8-[address] 1 tablet under the tongue daily. 7 tablet 0 cloNIDine (Catapres) 0.1 MG tablet Take 1 tablet (0.1 mg) by mouth 3 times daily. 90 tablet 0 gabapentin (Neurontin) 300 MG capsule Take 1 capsule (300 mg) by mouth in the morning and 1 capsule(300 mg) at noon and 1 capsule (300 mg) before bedtime. 90 capsule 0 hydrOXYzine pamoate (Vistaril) 50 MG capsule Take 1 capsule (50 mg) by mouth 2 times daily as needed for anxiety for up to 15 days. 30 capsule 0 metoprolol succinate XL (Toprol-XL) 25 MG 24 hr tablet Take 2 tablets (50 mg) by mouth daily. Do not crush or chew. (Patient taking differently: Take 50 mg by mouth daily. Do not crush or chew.) 30 tablet 3 OLANZapine (ZyPREXA) 5 MG tablet Take 1 tablet (5 mg) by mouth Nightly. (Patient taking differently: Take 5 mg by mouth Nightly.) 30 tablet 0 omeprazole (PriLOSEC) [address] capsule Take 1 capsule (20 mg) by mouth every morning (before breakfast). Do not crush or chew. 30 capsule 0 promethazine (Phenergan) 25 MG tablet Take 1 tablet (25 mg) by mouth every 6 hours as needed for nausea or vomiting for up to 8 days. 30 tablet 0 traZODone (Desyrel) 100 MG tablet Take 1 tablet (100 mg) by mouth Nightly. 30 tablet 0 venlafaxine XR (Effexor XR) 75 MG 24 hr capsule Take 1 capsule (75 mg) by mouth daily (with breakfast). Do not crush or chew. 90 capsule 0 No current facility-administered medications for this visit. OARRS: Reviewed and no inconsistencies or concerns Assessment & Plan Substance dependence disorder No diagnosis found. No orders of the defined types were placed in this encounter. 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 Dispense: 21 tablet; Refill: 0 -ordered phenergan 25mg prn for intermittent N/V at home MDD RODRIGUEZ Tic Disorder -continue effexor 75mg daily -clonidine 0.1mg TID -GBP 300mg TID -zyprexa 2.5mg BID (hope to taper down) Patient Goals: 1. Continue 12-step meeting attendance (goal of 2 per week). 2. Actively communicate with sponsor. 3. Take medication as directed and report any negative side effects or missed doses. 4. Report any illicit drug use to either the briefcase sewer or myself/my staff. 5. Keep medicine out of the reach of children. 6. Follow-up with recommended level of care. Interventions in Session: 1. Discussed patient's progress in their 12-step program. 2. Discussed progress in recovery and overall well-being. 3. Discussed stressors/triggers for a potential relapse & related coping mechanisms. -Follow up in 1 week Nikky sEcobar MD Addiction Medicine 08/26/2023 at 1:25 PM Associated attestation - Carlitos Orta MD - 08/28/2023 1:15 PM EDT Indirect Supervision Attestation During or immediately after this visit, I discussed this case with the treating fellow. Our discussion included the history obtained by the fellow, the fellow's exam findings, and the fellow's treatment plan. I agree with the assessment and plan as documented in the fellow's note (and any addendum's are listed below). Please see fellow s note for further details. This service has been performed by a fellow without the presence of a teaching physician under the primary care exception (GE Modifier). documented in this [facility]07-10-2024 History of Present illness Narrative* Nikky Escobar MD - 08/19/2023 2:30 PM EDT PATIENT: Roro Valdivia Chief complaint Subjective Roro Valdivia, a 37 y.o. male, who presents for a follow-up MAT appointment. Established with patient while admitted to [facility] detox unit, this is first transfer appointment sincehe is recently followed with Dr. Hilton. During admission, patient had relapsed on alcohol and withdrawal was managed with PNB. His psychiatric medications were also adjusted -now taking Effexor XR 75mg daily, Zyprexa 2.5 mg twice daily, Vistaril 50 mg as needed for anxiety, clonidine 0.1 mg twice daily, and gabapentin 300 mg 3 times daily (for anxiety and neuropathic pain). He was being prescribed Suboxone and this was continued on unit. Prior to discharge, he was interested in returning this [facility] or in finding a job to maintain his sobriety and assist him in finding employment. Medication response: Taking buprenorphine, has found cutting 8mg in half and taking it 4mg BID has been helpful for cravings. Denies any specific complaints or missed doses. Side effects from medication: denies any side effects from the buprenorphine, tolerating it well. Stressors/Triggers: denies states he has been doing well - has remained sober. We discussed how likely withdrawal from suboxone may have triggered drinking due to significant anxiety. Notes anxiety has been well controlled, which he was surprised with - has tolerated medication well, does voice significant weight gain from zyprexa; we discussed dietary and physical activity changes that would help with weigh loss, but also ultimately plan to decrease Zyprexa Smoking up to 2 packs a day - notes he's noticed each time he's become sober from a more illicit substance, his smoking has increased; not in a place he'd like to address this yet, does ask about alternative cigarettes he'd discussed with Dr. Hilton Sober date: 08/11/23 after presenting to detox Review of systems: Denies suicidal or homicidal ideation denies tactile auditory or visual hallucinations All of systems ROS was completed and was negative unless stated above Objective Physical Exam Constitutional: General: He is not in acute distress. Appearance: He is not diaphoretic. HENT: Head: Normocephalic and atraumatic. Nose: No rhinorrhea. Cardiovascular: Rate and Rhythm: Normal rate. Pulmonary: Effort: Pulmonary effort is normal. No respiratory distress. Neurological: Mental Status: He is alert and oriented to person, place, and time. Comments: Various motor tics noted Psychiatric: Attention and Perception: He does not perceive auditory or visual hallucinations. Mood and Affect: Mood is not anxious or depressed. Behavior: Behavior is cooperative. Thought Content: Thought content does not include homicidal or suicidal ideation. Current Outpatient Medications Medication Sig Dispense Refill buprenorphine-naloxone (Suboxone) 8-2 MG per sublingual film Place 1 Film under the tongue daily for 4 days. 4 Film 0 cloNIDine (Catapres) 0.1 MG tablet Take 1 tablet (0.1 mg) by mouth 2 times daily. 60 tablet 0 gabapentin (Neurontin) 300 MG capsule Take 1 capsule (300 mg) by mouth in the morning and 1 capsule(300 mg) at noon and 1 capsule (300 mg) before bedtime. 90 capsule 0 hydrOXYzine pamoate (Vistaril) 50 MG capsule Take 1 capsule (50 mg) by mouth 2 times daily as needed for anxiety for up to 15 days. 30 capsule 0 metoprolol succinate XL (Toprol-XL) 25 MG 24 hr tablet Take 2 tablets (50 mg) by mouth daily. Do not crush or chew. (Patient taking differently: Take 50 mg by mouth daily. Do not crush or chew.) 30 tablet 3 OLANZapine (ZyPREXA) 5 MG tablet Take 1 tablet (5 mg) by mouth Nightly. (Patient taking differently: Take 5 mg by mouth Nightly.) 30 tablet 0 omeprazole (PriLOSEC) [address] capsule Take 1 capsule (20 mg) by mouth every morning (before breakfast). Do not crush or chew. 30 capsule 0 traZODone (Desyrel) 100 MG tablet Take 1 tablet (100 mg) by mouth Nightly. 30 tablet 0 venlafaxine XR (Effexor XR) 75 MG 24 hr capsule Take 1 capsule (75 mg) by mouth daily (with breakfast). Do not crush or chew. 90 capsule 0 No current facility-administered medications for this visit. OARRS: Reviewed and no inconsistencies or concerns Assessment & Plan Substance dependence disorder No diagnosis found. No orders of the defined types were placed in this encounter. 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 Dispense: 21 tablet; Refill: 0 -ordered phenergan 25mg prn for intermittent N/V at home MDD RODRIGUEZ Tic Disorder -continue effexor 75mg daily, clonidine 0.1mg TID, GBP 300mg TID, zyprexa 2.5mg BID (hope to taper down) Patient Goals: 1. Continue 12-step meeting attendance (goal of 2 per week). 2. Actively communicate with sponsor. 3. Take medication as directed and report any negative side effects or missed doses. 4. Report any illicit drug use to either the briefcase sewer or myself/my staff. 5. Keep medicine out of the reach of children. 6. Follow-up with recommended level of care. Interventions in Session: 1. Discussed patient's progress in their 12-step program. 2. Discussed progress in recovery and overall well-being. 3. Discussed stressors/triggers for a potential relapse & related coping mechanisms. Follow up in 1 weeks Nikky Escobar MD Addiction Medicine 08/19/2023 at 12:02 PM Cosigned by Carlitos Orta MD at 08/19/2023 3:28 PM EDT Associated attestation - Carlitos Orta MD - 08/19/2023 3:28 PM EDT Indirect Supervision Attestation During or immediately after this visit, I discussed this case with the treating fellow. Our discussion included the history obtained by the fellow, the fellow's exam findings, and the fellow's treatment plan. I agree with the assessment and plan as documented in the fellow's note (and any addendum's are listed below). Please see fellow s note for further details. This service has been performed by a fellow without the presence of a teaching physician under the primary care exception ( Modifier). documented in this [facility]07-06-2024 Nurse Note* Fay Lara RN - 08/15/2023 12:31 PM EDT Printed home going instructions given to the patient. He signed the papers for discharge. He spoke with his mom and she will be picking him up at [address] He is changing into his clothes from home. 1245 he was walked down to meet his mom. He has his items in hand and his gait is steady. He is without complaint at discharge. [id number]* Fay Lara RN - 08/15/2023 12:31 PM EDT Printed home going instructions given to the patient. He signed the papers for discharge. He spoke with his mom and she will be picking him up at [address] He is changing into his clothes from home. 1245 he was walked down to meet his mom. He has his items in hand and his gait is steady. He is without complaint at discharge. * Fay Lara RN - 08/15/2023 11:57 AM EDT In reviewing home going instructions / medications with the patient. He is asking about the Clonidine being 3 times a day and the Zyprexa being half a tab bid. Dr. Orta wants to keep it as written. He also is asking about the Phenergan. Dr. Orta said he can address this with the doctor on his follow up in 2 days. No other orders obtained. He was encouraged to have his mom throw out any residual alcohol in the home. He voiced that he knows that would be a good idea. He denies any form ofhallucinations. He denies thoughts of wanting to harm himself or others. Relapse prevention discussed. He voiced understanding of the risk related to resuming use. He declined meeting information at this time saying he has all the information needed. * Velma Forman RN - 08/12/2023 8:30 PM EDT Pt alert and oriented, med compliant, pt denies SI/HI/AVH, V&D. Pt laying in bed at this time sleeping , pt awakens to voice and only complaint at this time is nausea, pt medicated with phenergan. Pt out to the group room at this time and social with peers. 2129- Pt states phenergan is helpful in decreasing nausea. Pt encouraged to update staff with any change in condition. Will monitor pt for safety. * Gerson Vazquez RN - 08/12/2023 6:16 PM EDT Patient has been in room and out in dayroom during shift cooperative and pleasant * Gerson Vazquez RN - 08/12/2023 9:45 AM EDT Reports no SI, Hi or A/V hallucination when asked has been cooperative and pleasant on unit mostly stays in his room encouraged to attend meetings complaint with medication * Fay Lara RN - 08/11/2023 5:38 PM EDT Mr. Valdivia has been spending time in the day area. He has been observed social with his peers. Hereports feeling better after the Suboxone and nausea/anxiety medication. He was glad the medications helped those symptoms he was feeling. He showered and changed his clothes this afternoon. Questions encouraged / answered. Patient made aware to alert staff of needs. * Fay Lara RN - 08/11/2023 8:07 AM EDT Pt aroused easily to his name being called. He is alert and oriented times 4. He voiced C/O nausea and feeling some irritation form his vomiting as of recently. Reviewed medications and will give Prnmedications for symptoms and morning medications as he thinks he can take. He denies thoughts of wanting to harm himself or others. He was agreeable to let staff know if those feelings were to change. He has his call light in reach. Reviewed ordered with the patient. documented in this [facility]07-06-2024 Nurse Note* Fay Lara RN - 08/15/2023 11:57 AM EDT In reviewing home going instructions / medications with the patient. He is asking about the Clonidine being 3 times a day and the Zyprexa being half a tab bid. Dr. Orta wants to keep it as written. He also is asking about the Phenergan. Dr. Orta said he can address this with the doctor on his follow up in 2 days. No other orders obtained. He was encouraged to have his mom throw out any residual alcohol in the home. He voiced that he knows that would be a good idea. He denies any form ofhallucinations. He denies thoughts of wanting to harm himself or others. Relapse prevention discussed. He voiced understanding of the risk related to resuming use. He declined meeting information at this time saying he has all the information needed. [id number] Narrative* Carlitos Orta MD - 08/15/2023 11:17 AM EDT Images from the original note were not included. ADDICTION MEDICINE 4E DETOX UNIT DISCHARGE SUMMARY __ Patient MRN Kendra Valdivia [id number] Admit Date Discharge Date 08/10/2023 08/15/2023 Primary Care Physician No primary care provider on file. Admitting Physician Stone Ramsey MD Consultants None. Reason for Admission Alcohol detox. DISCHARGE DIAGNOSIS Active Problems Active Problems: Severe alcohol use disorder (HCC) Severe opioid use disorder on maintenance therapy (HCC) Severe episode of recurrent major depressive disorder, without psychotic features (HCC) Resolved Problems Alcohol withdrawal syndrome without complication (HCC) Body mass index is 35.62 kg/m . DETOXIFICATION COURSE Detoxed with a phenobarbital taper, gabapentin and prn medications for alcohol withdrawal symptoms.He was initially yellow slipped in the ED for suicidal comments he made while intoxicated. He recanted these when sober. Yellow slip was discontinued on our unit. In addition to drinking alcohol he is not compliant with Suboxone. Bupe screen negative. We restarted him on it after re- obtaining informed consent. Former patient of Dr. Hilton, he will now see our new fellow, Dr. Esocbar. OARRS reviewed. He felt benefit from Gabapentin so rx was written. Our fellow will continue this for now andeventually taper him off. Dose of Effexor was increased to 75 mg daily. He will follow up with [facility] for psychiatric care, and also says he wants to engage with [facility] to help ensure sobriety. He was given a Suboxone rx but only enough to get him to follow up appt. Of note, LFTs were elevated presumably from alcohol use but he did not have any acute findings on clinical abdominal exam. Vitals height is 1.854 m (6' 1) and weight is 122 kg (270 lb). His temporal temperature is 36.7 C (98 F).His blood pressure is 150/91 and his pulse is 63. His respiration is 16 and oxygen saturation is 95%. Physical Exam Vitals and nursing note reviewed. Constitutional: General: He is not in acute distress. Appearance: Normal appearance. He is overweight. He is not ill-appearing. HENT: Head: Normocephalic and atraumatic. Mouth/Throat: Mouth: Mucous membranes are moist. Eyes: General: No scleral icterus. Extraocular Movements: Extraocular movements intact. Cardiovascular: Rate and Rhythm: Normal rate and regular rhythm. Pulmonary: Effort: Pulmonary effort is normal. Breath sounds: Normal breath sounds. Abdominal: General: Abdomen is flat. Palpations: Abdomen is soft. Musculoskeletal: General: Normal range of motion. Neurological: General: No focal deficit present. Mental Status: He is alert and oriented to person, place, and time. Motor: No tremor. Psychiatric: Attention and Perception: Attention and perception normal. Mood and Affect: Mood is anxious. Speech: Speech normal. Behavior: Behavior is slowed. Behavior is cooperative. Thought Content: Thought content normal. Cognition and Memory: Cognition and memory normal. Judgment: Judgment normal. Labs Results for orders placed or performed during the hospital encounter of 08/10/23 SARS-CoV-2 Antigen - Behavioral Health Use Specimen: Nasal; Swab Result Value Ref Range SARS-CoV-2 Antigen Negative Negative Comprehensive metabolic panel Result Value Ref Range SODIUM 145 135 - 145 mmol/L POTASSIUM 3.8 3.5 - 5.1 mmol/L CHLORIDE 105 98 - 107 mmol/L CARBON DIOXIDE 18 (L) 22 - 30 mmol/L ANION GAP 22 (H) 3 - 13 mmol/L UREA NITROGEN 5 (L) 9 - 20 mg/dL CREATININE 0.78 0.66 - 1.25 mg/dL GLUCOSE 112 (H) 70 - 100 mg/dL CALCIUM 9.1 8.4 - 10.4 mg/dL AST (SGOT) 237 (H) 15 - 46 U/L ALT 176 (H) 0 - 49 U/L ALKALINE PHOSPHATASE 135 (H) 38 - 126 U/L ALBUMIN 5.0 3.5 - 5.0 g/dL BILIRUBIN, TOTAL 0.7 0.2 - 1.3 mg/dL TOTAL PROTEIN 8.8 (H) 6.3 - 8.2 g/dL eGFR >90.0 >60.0 mL/min/1.73m*2 Ethanol Result Value Ref Range ETHANOL IN SER/PLAS 0.392 (HH) 0.000 - 0.010 g/dL Drug screen panel, emergency Result Value Ref Range AMPHETAMINE SCREEN Negative BARBITURATES SCREEN Negative BENZODIAZEPINE SCREEN Negative COCAINE METAB. SCREEN Negative METHADONE SCREEN Negative OPIATES SCREEN Negative OXYCODONE SCREEN Negative PHENCYCLIDINE SCREEN Negative CBC auto differential Result Value Ref Range Auto WBC 9.9 3.6 - 10.7 10*3/uL RBC 5.03 4.40 - 5.90 10*6/uL Hemoglobin 15.6 13.0 - 18.0 g/dL Hematocrit 46.8 40.0 - 52.0 % MCV 93.0 77.0 - 99.0 fL MCH 31.0 26.0 - 34.0 pg MCHC 33.3 30.5 - 36.0 % RDW 14.7 11.5 - 15.0 % Platelets 273 140 - 440 10*3/uL MPV 9.3 9.0 - 12.7 fL CK Result Value Ref Range CK 125 30 - 170 U/L Complete Urinalysis Result Value Ref Range Color, Urine Light Yellow Lt. Yellow Clarity, Urine Clear Clear pH, Urine 6.0 5.0 - 8.0 pH Leukocytes, Urine Negative Negative Teofilo/uL Nitrite, Urine Negative Negative Protein, Urine Negative Negative mg/dL Glucose, Urine Normal Normal (<70) mg/dL Bilirubin, Urine Negative Negative mg/dL Ketones, Urine Negative Negative mg/dL Urobilinogen, Urine Normal Normal (0-1) mg/dL Blood, Urine Negative Negative mg/dL SPECIFIC GRAVITY OF URINE (NUMERIC) 1.008 1.005 - 1.030 MANUAL DIFFERENTIAL (CELLAVISION) Result Value Ref Range RBC Morphology abnormal Anisocytosis Slight (A) (none) Poikilocytes Rare (A) (none) Macrocytes Slight (A) (none) Polychromasia Rare (A) (none) Dominic Cells Rare (A) (none) Neutrophils % 37 (L) 38 - 82 % Bands % 2 (H) <=0 % Lymphocytes % 49 (H) 15 - 45 % Atypical Lymphocytes % 8 (H) <=0 % Monocytes % 5 5 - 13 % Absolute Neutrophil Count 3.9 1.8 - 7.5 10*3/uL Bands Absolute 0.2 (H) <=0.0 10*3/uL Lymphocytes Absolute 4.9 (H) 1.0 - 4.3 10*3/uL Atypical Lymphs Absolute 0.8 (H) <=0.0 10*3/uL Monocytes Absolute 0.5 0.0 - 0.9 10*3/uL Neutrophils Manual 37 Lymphocytes Manual 49 Monocytes Manual 5 Eosinophils Manual Basophils Manual Bands Manual 2 Metamyelocytes Manual Myelocytes Manual Promyelocytes Manual Blasts Manual Atypical Lymphocytes Manual 8 Unclassified Cells, Manual Beta Hydroxybutyrate Result Value Ref Range BETA HYDROXYBUTYRATE 1.76 0.20 - 2.81 mg/dL Blood gas, venous (ACH and SBH) Result Value Ref Range pH, Venous 7.395 7.330 - 7.430 pCO2, Venous 38.1 (L) 40.0 - 55.0 mm Hg pO2, Venous 55.0 mm Hg HCO3, Venous 22.8 (L) 23.0 - 27.0 mmol/L O2 Sat, Venous 84.7 % Base Excess, Venous -1.7 -3.0 - 3.0 mmol/L Hgb, blood gas 15.8 Screen only g/dl TCO2, Venous 24.0 24.0 - 28.0 mmol/L Source Of Oxygen Room Air Lipase Result Value Ref Range LIPASE 246 23 - 300 U/L BUPRENORPHINE SCREEN Result Value Ref Range BUPRENORPHINE SCREEN Negative Negative Imaging No results found. Scheduled Inpatient Meds buprenorphine-naloxone, 1 Film, SubLINGual, Daily cloNIDine, 0.1 mg, Oral, TID folic acid, 1 mg, Oral, Daily gabapentin, 300 mg, Oral, q8h metoprolol succinate XL, 50 mg, Oral, Daily OLANZapine, 2.5 mg, Oral, BID pantoprazole, 40 mg, Oral, qAM AC thiamine, 100 mg, Oral, TID traZODone, 100 mg, Oral, Nightly venlafaxine XR, 75 mg, Oral, Daily with breakfast PRN Inpatient Meds PRN medications: aluminum & magnesium hydroxide-simethicone, dicyclomine, hydrOXYzine pamoate, loperamide, LORazepam, magnesium hydroxide, naloxone, nicotine polacrilex, promethazine OR promethazine DISCHARGE INSTRUCTIONS Activity activity as tolerated. Disposition Home. Medication List START taking these medications gabapentin 300 MG capsule Commonly known as: Neurontin Take 1 capsule (300 mg) by mouth in the morning and 1 capsule (300 mg) at noon and 1 capsule (300 mg) before bedtime. hydrOXYzine pamoate 50 MG capsule Commonly known as: Vistaril Take 1 capsule (50 mg) by mouth 2 times daily as needed for anxiety for up to 15 days. traZODone 100 MG tablet Commonly known as: Desyrel Take 1 tablet (100 mg) by mouth Nightly. CHANGE how you take these medications venlafaxine XR 75 MG 24 hr capsule Commonly known as: Effexor XR Take 1 capsule (75 mg) by mouth daily (with breakfast). Do not crush or chew. Start taking on: August 16, 2023 What changed: medication strength how much to take CONTINUE taking these medications buprenorphine-naloxone 8-2 MG per sublingual film Commonly known as: Suboxone Place 1 Film under the tongue daily for 4 days. cloNIDine 0.1 MG tablet Commonly known as: Catapres Take 1 tablet (0.1 mg) by mouth 2 times daily. metoprolol succinate XL 25 MG 24 hr tablet Commonly known as: Toprol-XL Take 2 tablets (50 mg) by mouth daily. Do not crush or chew. OLANZapine 5 MG tablet Commonly known as: ZyPREXA Take 1 tablet (5 mg) by mouth Nightly. omeprazole [address] capsule Commonly known as: PriLOSEC Take 1 capsule (20 mg) by mouth every morning (before breakfast). Do not crush or chew. Where to Get Your Medications These medications were sent to [facility] - [place], [place] - [address] [facility] [address] buprenorphine-naloxone 8-2 MG per sublingual film cloNIDine 0.1 MG tablet gabapentin 300 MG capsule hydrOXYzine pamoate 50 MG capsule omeprazole [address] capsule traZODone 100 MG tablet venlafaxine XR 75 MG 24 hr capsule Follow Up [facility] [address], [place] [id number] Outpatient Walk-In Hours (No appointment required, first come, first served) Thursday: 8am-2pm Thursday- 8am-3pm Thursday: 8a-12pm Go to For walk-in appointment for engagement in mental health treatment services. Nikky Escobar MD [address] [place] [address] [address] [facility] [address] Go on 08/19/2023 at 1:00pm for MAT follow up. Future Appointments Date Time Provider Department Center 08/19/2023 3:00 PM Nikky Escobar MD [facility] ACD- None The patient was also instructed to: Attend AA/NA meetings or a similar 12-step program. Abstain from any mind or mood altering substances that are not prescribed. Follow up with their primary care doctor and/or psychiatrist as soon as possible. Pending studies or issues to follow up with: Follow up with cardiology regarding use of beta amanda and for BP evaluation. Consider repeat hepatic function panel and/or liver US. Continue Suboxone for MAT. Engage with sober living program at [facility]. Re-establish with [facility] for psychiatric care. Time spent on discharge summary: > 30 minutes documented in this [facility]07-05-2024 History of Present illness Narrative* Mckenna Pandya RN - 08/14/2023 10:12 AM EDT Pt in room on approach. Pt is compliant [facility] medication. Pt denies SI/HI. Pt denies AH/VH. Safety checks maintainer per unit policy. * Nikky Escobar MD - 08/14/2023 7:53 AM EDT ADDICTION MEDICINE PROGRESS NOTE Patient: Roro Valdivia __ Problem List: Principal Problem: Alcohol withdrawal syndrome without complication (HCC) Active Problems: Severe alcohol use disorder (HCC) Severe opioid use disorder on maintenance therapy (HCC) Severe episode of recurrent major depressive disorder, without psychotic features (HCC) SUBJECTIVE Chief Complaint Patient presents with Alcohol Problem Patient arrives via triage requesting detox from alcohol. Patient states taht he drinks a fifth or more per day, states that last drink was today but unsure of what time. Patient is tearful but cooperative on arrival, VERY unsteady on his feet. Patient states that he has detoxed before, does endorse seizures with detox in the past Last 4 CIWA scores per RN assessments 1-0-1-4 Interim History Feels anxiety remains well controlled, found changes to medications helpful and without side effects. Worries anxiety may return after PNB is no longer in his system - Feels sx of withdrawal are well controlled. Notes boredom often results in drinking - discussed ways to address this. Roro notes he is interested in finding a job, but also interested in starting [facility] once discharged. Notes after a month of sobriety they assist in finding employment and he would be able to maintain his outpatient appts. Confirms there should not be alcohol remaining at home Notes he would like prescriptions for GBP (has helped significant nerve pain in thighs) and phenergan (reports frequent nausea in the AM that is not improved with Zofran) on discharge Review of Systems Review of Systems Constitutional: Negative for activity change and appetite change. HENT: Negative for congestion and sore throat. Respiratory: Negative for cough, chest tightness and shortness of breath. Cardiovascular: Negative for chest pain. Gastrointestinal: Negative for abdominal pain, diarrhea and nausea. Psychiatric/Behavioral: Negative for hallucinations, sleep disturbance and suicidal ideas. The patient is not nervous/anxious. OBJECTIVE Vitals Vitals: 08/13/23 1737 08/13/23 1940 08/13/23 2310 08/14/23 0514 BP: 130/84 135/89 125/75 109/54 BP Location: Left arm Patient Position: Lying Pulse: 62 74 60 62 Resp: 16 16 16 16 Temp: 36.3 C (97.3 F) 36.7 C (98.1 F) (!) 35.6 C (96 F) 36.3 C (97.4 F) TempSrc: Temporal Temporal Temporal Temporal SpO2: 97% 95% 94% 95% Weight: Height: Physical Exam Constitutional: Appearance: Normal appearance. HENT: Mouth/Throat: Mouth: Mucous membranes are moist. Eyes: Extraocular Movements: Extraocular movements intact. Pupils: Pupils are equal, round, and reactive to light. Cardiovascular: Rate and Rhythm: Normal rate and regular rhythm. Pulmonary: Effort: Pulmonary effort is normal. Breath sounds: Normal breath sounds. Abdominal: Palpations: Abdomen is soft. Musculoskeletal: General: Normal range of motion. Cervical back: Normal range of motion. Neurological: General: No focal deficit present. Mental Status: He is alert and oriented to person, place, and time. Psychiatric: Mood and Affect: Mood normal. Medications Home Meds Current Outpatient Medications Medication Instructions buprenorphine-naloxone (Suboxone) 8-2 MG per sublingual film 1 Film, SubLINGual, Daily cloNIDine (CATAPRES) 0.1 mg, Oral, 2 times daily metoprolol succinate XL (TOPROL-XL) 50 mg, Oral, Daily, Do not crush or chew. OLANZapine (ZYPREXA) 5 mg, Oral, Nightly omeprazole (PRILOSEC) 20 mg, Oral, Daily before breakfast, Do not crush or chew. venlafaxine XR (EFFEXOR XR) 37.5 mg, Oral, Daily with breakfast, Do not crush or chew. Scheduled Inpatient Meds buprenorphine-naloxone, 1 Film, SubLINGual, Daily cloNIDine, 0.1 mg, Oral, TID folic acid, 1 mg, Oral, Daily gabapentin, 300 mg, Oral, q8h metoprolol succinate XL, 50 mg, Oral, Daily OLANZapine, 2.5 mg, Oral, BID pantoprazole, 40 mg, Oral, qAM AC PHENobarbital, 16.2 mg, Oral, Q4H thiamine, 100 mg, Oral, TID traZODone, 100 mg, Oral, Nightly venlafaxine XR, 75 mg, Oral, Daily with breakfast PRN Inpatient Meds PRN medications: aluminum & magnesium hydroxide-simethicone, dicyclomine, hydrOXYzine pamoate, loperamide, LORazepam, magnesium hydroxide, naloxone, nicotine polacrilex, promethazine OR promethazine Continuous Inpatient Infusions Recent Imaging No results found. Labs CBC: No results for input(s): WBC, HGB, PLT, MCV, RDW in the last 72 hours. BMP: No results for input(s): NA, K, CL, CO2, BUN, CREATININE, CALCIUM, MG, PHOS in the last 72 hours. Liver Profile: No results for input(s): AST, ALT, BILITOT, ALKPHOS, PROT, LIPASE, INR in the last 72hours. No lab exists for component: LABALBU Glucose: No results for input(s): GLUCOSE, POCGLU in the last 72 hours. No lab exists for component: LABA1C Lactic Acid: No lab exists for component: LACTA Cardiac Injury Profile: No results for input(s): CKTOTAL, CKMB, TROPONINI in the last 72 hours. Last 24 Hours: No results found for this or any previous visit (from the past 24 hour(s)). ASSESSMENT & PLAN Alcohol use disorder Counseled patient on biopsychosocial consequences of substance use. Encouraged professional chemical dependency treatment. Encouraged 12 step meeting attendance. Follow up plans for addiction management discussed with patient: Will encourage consideration of residential tx or CDIOP. Alcohol withdrawal Last use of alcohol was on 08/09. PNB taper to manage alcohol withdrawal symptoms. Decreased to 16mg q 4 hours for today. CIWA scores per unit protocol. PRN medications for withdrawal symptom management added. Encouraged to participate in all unit activities. Discontinued prn Zofran, ordered Phenergan prn instead; has found this more beneficial, would like script for it on discharge Opiate Use Disorder, in remission Was on Suboxone 8mg daily, ran out August 04 - interested in restarting, denied recent use of any opiates Buprenorphine screen negative Continue Suboxone 8mg daily with plan for MAT follow up scheduled for 08/18 at [facility] Anxiety Changed Zyprexa to 2.5mg BID Continue Effexor XR to 75mg, clonidine 0.1mg TID Would like GBP continued at [facility] Will need script of new dose Effexor XR on dc as well as clonidine, states he has 5mg Zyprexa at home he is amenable to cutting Disposition: Discharge anticipated in tomorrow. This is pending: Resolution of withdrawal symptoms. Medical stabilization. This pateint was staffed with Dr. Orta. -Nikky Escobar MD electronically signed this at 7:53 AM Associated attestation - Carlitos Orta MD - 08/14/2023 11:21 AM EDT I saw and evaluated the patient, participating in the erickson portions of the service. We reviewed the patient's medical record and test results. I personally spent over half of a total 35 minutes in counseling and discussion with the patient and coordination of care. This included a face to face evaluation and physical examination, and documenting clinical information on the day of visit. I have reviewed the fellow's note. I agree with the fellow s findings and plan. * Lashae Hartley RN - 08/13/2023 10:43 PM EDT Pt approached resting in bed for assessment. Pt cooperative with care and compliant with medication. Denies SI/HI/AVH. Pt encouraged to make needs known to staff. Will monitor CIWA per unit routine. Safety checks continued. * Marilynn Tinoco RN - 08/13/2023 10:40 AM EDT Pt easily awakened for assessment. Pt has eaten breakfast., Denies SI/HI. Denies A/V hallucinations. Denies pain. Compliant with medications per APR. Eating and drinking okay. Pt is pleasant and cooperative. Pt c/o having strong cravings. Pt states he thinks he may need Suboxone increased, encouraged to voice concern to doctor. * Nikky Escobar MD - 08/13/2023 7:37 AM EDT ADDICTION MEDICINE PROGRESS NOTE Patient: Roro Valdivia __ Problem List: Principal Problem: Alcohol withdrawal syndrome without complication (HCC) Active Problems: Severe alcohol use disorder (HCC) Severe opioid use disorder on maintenance therapy (HCC) Severe episode of recurrent major depressive disorder, without psychotic features (HCC) SUBJECTIVE Chief Complaint Patient presents with Alcohol Problem Patient arrives via triage requesting detox from alcohol. Patient states taht he drinks a fifth or more per day, states that last drink was today but unsure of what time. Patient is tearful but cooperative on arrival, VERY unsteady on his feet. Patient states that he has detoxed before, does endorse seizures with detox in the past Last 4 CIWA scores per RN assessments 2-2-2-3 Interim History Feels anxiety remains well controlled, found changes to medications helpful and without side effects. Worries anxiety may return after PNB is no longer in his system. Feels sx of withdrawal are well controlled. Notes boredom often results in drinking - discussed ways to address this. Roro notes he is interested in finding a job. Review of Systems Review of Systems Constitutional: Negative for activity change and appetite change. HENT: Negative for congestion and sore throat. Respiratory: Negative for cough, chest tightness and shortness of breath. Cardiovascular: Negative for chest pain. Gastrointestinal: Negative for abdominal pain, diarrhea and nausea. Psychiatric/Behavioral: Negative for hallucinations, sleep disturbance and suicidal ideas. The patient is not nervous/anxious. OBJECTIVE Vitals Vitals: 08/12/23 1731 08/12/23 2029 08/12/23 2336 08/13/23 0531 BP: 101/60 (!) 135/104 126/82 126/71 Pulse: 61 64 64 57 Resp: 16 16 19 16 Temp: 36.3 C (97.3 F) 36.5 C (97.7 F) 36.7 C (98 F) 36.3 C (97.3 F) TempSrc: Temporal Temporal Temporal Temporal SpO2: 96% 95% 95% 96% Weight: Height: Physical Exam Constitutional: Appearance: Normal appearance. HENT: Mouth/Throat: Mouth: Mucous membranes are moist. Eyes: Extraocular Movements: Extraocular movements intact. Pupils: Pupils are equal, round, and reactive to light. Cardiovascular: Rate and Rhythm: Normal rate and regular rhythm. Pulmonary: Effort: Pulmonary effort is normal. Breath sounds: Normal breath sounds. Abdominal: Palpations: Abdomen is soft. Musculoskeletal: General: Normal range of motion. Cervical back: Normal range of motion. Neurological: General: No focal deficit present. Mental Status: He is alert and oriented to person, place, and time. Psychiatric: Mood and Affect: Mood normal. Medications Home Meds Current Outpatient Medications Medication Instructions buprenorphine-naloxone (Suboxone) 8-2 MG per sublingual film 1 Film, SubLINGual, Daily cloNIDine (CATAPRES) 0.1 mg, Oral, 2 times daily metoprolol succinate XL (TOPROL-XL) 50 mg, Oral, Daily, Do not crush or chew. OLANZapine (ZYPREXA) 5 mg, Oral, Nightly omeprazole (PRILOSEC) 20 mg, Oral, Daily before breakfast, Do not crush or chew. venlafaxine XR (EFFEXOR XR) 37.5 mg, Oral, Daily with breakfast, Do not crush or chew. Scheduled Inpatient Meds buprenorphine-naloxone, 1 Film, SubLINGual, Daily cloNIDine, 0.1 mg, Oral, TID folic acid, 1 mg, Oral, Daily gabapentin, 300 mg, Oral, q8h metoprolol succinate XL, 50 mg, Oral, Daily OLANZapine, 2.5 mg, Oral, BID pantoprazole, 40 mg, Oral, qAM AC PHENobarbital, 32.4 mg, Oral, Q4H Followed by [START ON 08/14/2023] PHENobarbital, 16.2 mg, Oral, Q4H thiamine, 100 mg, Oral, TID traZODone, 100 mg, Oral, Nightly venlafaxine XR, 75 mg, Oral, Daily with breakfast PRN Inpatient Meds PRN medications: aluminum & magnesium hydroxide-simethicone, dicyclomine, hydrOXYzine pamoate, loperamide, LORazepam, magnesium hydroxide, naloxone, nicotine polacrilex, promethazine OR promethazine Continuous Inpatient Infusions Recent Imaging No results found. Labs CBC: Recent Labs 08/10/23204408/10/23 2224 WBC 9.9 -- HGB 15.6 15.8 PLT 273 -- MCV 93.0 -- RDW 14.7 -- BMP: Recent Labs 08/10/232044 NA 145 K 3.8 CL 105 CO2 18* BUN 5* CREATININE 0.78 CALCIUM 9.1 Liver Profile: Recent Labs 08/10/232044 AST 237* ALT 176* BILITOT 0.7 ALKPHOS 135* PROT 8.8* LIPASE 246 Glucose: Recent Labs 08/10/232044 GLUCOSE 112* Lactic Acid: No lab exists for component: LACTA Cardiac Injury Profile: Recent Labs 08/10/232044 CKTOTAL 125 Last 24 Hours: No results found for this or any previous visit (from the past 24 hour(s)). ASSESSMENT & PLAN Alcohol use disorder Counseled patient on biopsychosocial consequences of substance use. Encouraged professional chemical dependency treatment. Encouraged 12 step meeting attendance. Follow up plans for addiction management discussed with patient: Will encourage consideration of residential tx or CDIOP. Alcohol withdrawal Last use of alcohol was on 08/09. PNB taper to manage alcohol withdrawal symptoms. Decreased to 32mg q 4 hours for today. CIWA scores per unit protocol. PRN medications for withdrawal symptom management added. Encouraged to participate in all unit activities. Discontinued prn Zofran, ordered Phenergan prn instead Opiate Use Disorder, in remission Was on Suboxone 8mg daily, ran out August 04 - interested in restarting, denied recent use of any opiates Buprenorphine screen negative Restarted Suboxone 8mg daily with plan for MAT follow up with me at [place] Anxiety Changed Zyprexa to 2.5mg BID Continue Effexor XR to 75mg, clonidine 0.1mg TID Would like GBP continued at ca Disposition: Discharge anticipated in 3-5 days. This is pending: Resolution of withdrawal symptoms. Medical stabilization. This pateint was staffed with Dr. Orta. -Nikky Escobar MD electronically signed this at 7:37 AM Associated attestation - Luois Alexandre MD - 08/13/2023 8:09 PM EDT I did spend over 35- minutes coordinating care,providing discussion on patient's medical,psychiatric and chemical dependency history, and discussion of treatment plan * Nikky Escobar MD - 08/12/2023 1:52 PM EDT Images from the original note were not included. ADDICTION MEDICINE PROGRESS NOTE Patient: Roro Valdivia __ Problem List: Principal Problem: Alcohol withdrawal syndrome without complication (HCC) Active Problems: Severe alcohol use disorder (HCC) Severe opioid use disorder on maintenance therapy (HCC) Severe episode of recurrent major depressive disorder, without psychotic features (HCC) SUBJECTIVE Chief Complaint Patient presents with Alcohol Problem Patient arrives via triage requesting detox from alcohol. Patient states taht he drinks a fifth or more per day, states that last drink was today but unsure of what time. Patient is tearful but cooperative on arrival, VERY unsteady on his feet. Patient states that he has detoxed before, does endorse seizures with detox in the past Last 4 CIWA scores per RN assessments 3 - 5 - 3 - 4 Interim History Feels anxiety is well controlled, found changes to medications helpful and without side effects. Notes GBP particularly helpful - reports hx of nerve injuries to legs which burn, found GBP relieved this and helped anxiety. Would like to continue it outpatient. Discussed poor attendance to suboxone appts - pt notes he is his own transportation, but forgetfulness and drinking got in the way of keeping up with appts to get suboxone. Does affirm he is willing to come to weekly appts. Discussed option of sublocade - pt voices some understanding that suboxone withdrawal may have mateo trigger to relapse and worsen his alcohol use as he recalls anxiety suddenly being uncontrollable. Still feels strongly about suboxone over ESCALANTE. Feels sx of withdrawal are well controlled. Review of Systems Review of Systems Constitutional: Negative for activity change and appetite change. HENT: Negative for congestion and sore throat. Respiratory: Negative for cough, chest tightness and shortness of breath. Cardiovascular: Negative for chest pain. Gastrointestinal: Negative for abdominal pain, diarrhea and nausea. Psychiatric/Behavioral: Negative for hallucinations, sleep disturbance and suicidal ideas. The patient is not nervous/anxious. OBJECTIVE Vitals Vitals: 08/11/23 2251 08/12/23 0506 08/12/23 0752 08/12/23 1122 BP: 111/64 129/78 116/75 (!) 141/101 BP Location: Patient Position: Pulse: 64 51 54 67 Resp: 17 17 16 16 Temp: 36.2 C (97.2 F) 36.4 C (97.5 F) 36.7 C (98 F) 36.7 C (98 F) TempSrc: Temporal Temporal Temporal Temporal SpO2: 96% 97% 98% 96% Weight: Height: Physical Exam Constitutional: Appearance: Normal appearance. HENT: Mouth/Throat: Mouth: Mucous membranes are moist. Eyes: Extraocular Movements: Extraocular movements intact. Pupils: Pupils are equal, round, and reactive to light. Cardiovascular: Rate and Rhythm: Normal rate and regular rhythm. Pulmonary: Effort: Pulmonary effort is normal. Breath sounds: Normal breath sounds. Abdominal: Palpations: Abdomen is soft. Musculoskeletal: General: Normal range of motion. Cervical back: Normal range of motion. Neurological: General: No focal deficit present. Mental Status: He is alert and oriented to person, place, and time. Psychiatric: Mood and Affect: Mood normal. Medications Home Meds Current Outpatient Medications Medication Instructions buprenorphine-naloxone (Suboxone) 8-2 MG per sublingual film 1 Film, SubLINGual, Daily cloNIDine (CATAPRES) 0.1 mg, Oral, 2 times daily metoprolol succinate XL (TOPROL-XL) 50 mg, Oral, Daily, Do not crush or chew. OLANZapine (ZYPREXA) 5 mg, Oral, Nightly omeprazole (PRILOSEC) 20 mg, Oral, Daily before breakfast, Do not crush or chew. venlafaxine XR (EFFEXOR XR) 37.5 mg, Oral, Daily with breakfast, Do not crush or chew. Scheduled Inpatient Meds buprenorphine-naloxone, 1 Film, SubLINGual, Daily cloNIDine, 0.1 mg, Oral, TID folic acid, 1 mg, Oral, Daily gabapentin, 300 mg, Oral, q8h metoprolol succinate XL, 50 mg, Oral, Daily pantoprazole, 40 mg, Oral, qAM AC PHENobarbital, 64.8 mg, Oral, Q4H Followed by [START ON 08/13/2023] PHENobarbital, 32.4 mg, Oral, Q4H Followed by [START ON 08/14/2023] PHENobarbital, 16.2 mg, Oral, Q4H thiamine, 100 mg, Oral, TID traZODone, 100 mg, Oral, Nightly venlafaxine XR, 75 mg, Oral, Daily with breakfast PRN Inpatient Meds PRN medications: aluminum & magnesium hydroxide-simethicone, dicyclomine, hydrOXYzine pamoate, loperamide, LORazepam, magnesium hydroxide, naloxone, nicotine polacrilex, OLANZapine, promethazine OR promethazine Continuous Inpatient Infusions Recent Imaging No results found. Labs CBC: Recent Labs 08/10/23204408/10/23 2224 WBC 9.9 -- HGB 15.6 15.8 PLT 273 -- MCV 93.0 -- RDW 14.7 -- BMP: Recent Labs 08/10/232044 NA 145 K 3.8 CL 105 CO2 18* BUN 5* CREATININE 0.78 CALCIUM 9.1 Liver Profile: Recent Labs 08/10/232044 AST 237* ALT 176* BILITOT 0.7 ALKPHOS 135* PROT 8.8* LIPASE 246 Glucose: Recent Labs 08/10/232044 GLUCOSE 112* Lactic Acid: No lab exists for component: LACTA Cardiac Injury Profile: Recent Labs 08/10/232044 CKTOTAL 125 Last 24 Hours: No results found for this or any previous visit (from the past 24 hour(s)). ASSESSMENT & PLAN Alcohol use disorder Counseled patient on biopsychosocial consequences of substance use. Encouraged professional chemical dependency treatment. Encouraged 12 step meeting attendance. Follow up plans for addiction management discussed with patient: Will encourage consideration of residential tx or CDIOP. Alcohol withdrawal Last use of alcohol was on 08/09. PNB taper to manage alcohol withdrawal symptoms. 64.8mg q 4 hours for today. CIWA scores per unit protocol. PRN medications for withdrawal symptom management added. Encouraged to participate in all unit activities. Discontinued prn Zofran, ordered Phenergan prn instead Opiate Use Disorder, in remission Was on Suboxone 8mg daily, ran out August 04 - interested in restarting, denied recent use of any opiates Buprenorphine screen negative Restarted Suboxone 8mg daily with plan for MAT follow up with me at ca Anxiety Changed Zyprexa to 2.5mg BID Continue Effexor XR to 75mg, clonidine 0.1mg TID Would like GBP continued at ca Disposition: Discharge anticipated in 3-5 days. This is pending: Resolution of withdrawal symptoms. Medical stabilization. This pateint was staffed with Dr. Orta. -Nikky Escobar MD electronically signed this at 1:53 PM Associated attestation - Carlitos Orta MD - 08/12/2023 3:47 PM EDT I saw and evaluated the patient, participating in the erickson portions of the service. We reviewed the patient's medical record and test results. I personally spent over half of a total 35 minutes in counseling and discussion with the patient and coordination of care. This included a face to face evaluation and physical examination, and documenting clinical information on the day of visit. I have reviewed the fellow's note. I agree with the fellow s findings and plan, with any additions or corrections listed below. He will follow up with our fellow for MAT and with [facility] for psychiatric care. * Ana Merida - 08/12/2023 7:40 AM EDT Nutrition rescreen completed. Patient assigned a level 1. * Marilynn Tinoco RN - 08/12/2023 12:38 AM EDT Pt has been withdrawn to room. Pt states he wants to speak with doctor about getting prescribed Gabapentin for leg numbness he sometimes has. Pt appears stable, voices no c/o withdrawal at this time.Pt encouraged to notify staff for questions and concerns. * Lashae Hartley RN - 08/11/2023 3:46 AM EDT Pt arrived to from [facility] ED via wheelchair. Observed ambulating independently. Skin check done by 2 RN. Intact, no findings. Consents signed. Pt appears somewhat intoxicated and anxious. Pressured speech. Pt reports having psychotic episodes and really bad mental issues. Pt reports being on multiple medications to treat mental health with compliance but they're ineffective. Pt reports homelessness and no support. Reports having mother, but mother is not able to handle pt behavior and pt freak outs. 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 Pt reports being worse off mentally when not taking anything referring to alcohol and drug use. Pt reports drinking 2/5 vodka the cheap stuff daily. Denies current drug use since last admission to rehab , but has ahx of IN and IV use of amphetamines, cocaine and fentanyl. Dr. Ramsey notified of pt behavior, anxiety and CIWA. No new orders at this time. Pt compliant with scheduled medication and cooperative with admission process. Pt denies current SI/HI/AVH. Pt reports does not want to kill self but sometimes thinks about doing it to end the pain when having panic attacks. Pt denies plan or intent at this time. Pt thinks a psych consult would be beneficial to treatment for management of medications. Pt resting no s/sx of distress. Fall and seizure precautions in place. Pt educated on use of call light,remains in reach. Pt encouraged to make needs known to staff and call for assistance as needed. Safety checks maintained. documented in this [facility]07-05-2024 Plan of care note* Care Plan - Mckenna Pandya RN - 08/14/2023 9:05 AM EDT Problem: Potential for Substance Withdrawal Goal: Verbalizes signs/symptoms of withdrawal Outcome: Progressing Goal: Reports signs/symptoms of withdrawal Outcome: Progressing Goal: Free of withdrawal symptoms Outcome: Progressing Problem: Anxiety Goal: Attempts to manage anxiety with help Outcome: Progressing Goal: Verbalizes ways to manage anxiety Outcome: Progressing Goal: Implements measures to reduce anxiety Outcome: Progressing Problem: Knowledge Deficit Goal: Patient/family/caregiver demonstrates understanding of disease process, treatment plan, medications, and discharge instructions Outcome: Progressing Problem: Potential for Compromised Skin Integrity Goal: Skin Integrity is Maintained or Improved Outcome: Progressing Goal: Nutritional status is improving Outcome: Progressing [id number]* Care Uma - Mckenna Pandya RN - 08/14/2023 9:05 AM EDT Problem: Potential for Substance Withdrawal Goal: Verbalizes signs/symptoms of withdrawal Outcome: Progressing Goal: Reports signs/symptoms of withdrawal Outcome: Progressing Goal: Free of withdrawal symptoms Outcome: Progressing Problem: Anxiety Goal: Attempts to manage anxiety with help Outcome: Progressing Goal: Verbalizes ways to manage anxiety Outcome: Progressing Goal: Implements measures to reduce anxiety Outcome: Progressing Problem: Knowledge Deficit Goal: Patient/family/caregiver demonstrates understanding of disease process, treatment plan, medications, and discharge instructions Outcome: Progressing Problem: Potential for Compromised Skin Integrity Goal: Skin Integrity is Maintained or Improved Outcome: Progressing Goal: Nutritional status is improving Outcome: Progressing * Orquidea Eaton - Lashae Hartley RN - 08/13/2023 11:09 PM EDT Problem: Potential for Substance Withdrawal Goal: Verbalizes signs/symptoms of withdrawal Outcome: Progressing Goal: Reports signs/symptoms of withdrawal Outcome: Progressing Goal: Free of withdrawal symptoms Outcome: Progressing Problem: Anxiety Goal: Attempts to manage anxiety with help Outcome: Progressing Goal: Verbalizes ways to manage anxiety Outcome: Progressing Goal: Implements measures to reduce anxiety Outcome: Progressing Problem: Knowledge Deficit Goal: Patient/family/caregiver demonstrates understanding of disease process, treatment plan, medications, and discharge instructions Outcome: Progressing Problem: Potential for Compromised Skin Integrity Goal: Skin Integrity is Maintained or Improved Outcome: Progressing Goal: Nutritional status is improving Outcome: Progressing * Group Note - Maria Isabel Sauer - 08/13/2023 4:00 PM EDT Department: [facility] Group Topic: Leisure Skills Group Date: 08/13/2023 Start Time: 1600 End Time: 1700 Facilitators: Maria Isabel Sauer Number of Participants: 6 Group Name: [facility] Treatment Modality: Leisure Development Purpose: enhance coping skills Summary: To expose patients to healthy leisure outlets. Name: Roro Valdivia Date of : 1985 MR: [id number] Mental Status Exam: Appearance: Good eye contact Affect: Flat Behavior: Interactive Alertness: Alert Speech: Appropriate Cognition: Intact Thought Process: Goal-directed Thought Content: organized Level/Quality of Participation: engaged Interactions with others: appropriate Interventions utilized were Activity Therapy Patient's Response to Intervention: on-task; appropriate interactions & affect Progress Towards Goal(s): Goal(s) met Additional Comments: Staff will continue to encourage pt to attend AT sessions. Next Step: Continue with current services Patients Problems: Patient Active Problem List Diagnosis GERD (gastroesophageal reflux disease) Hypertension SVT (supraventricular tachycardia) (HCC) Tourette syndrome Alcohol induced acute pancreatitis without necrosis or infection Polysubstance use disorder Cocaine abuse (HCC) Elevated liver enzymes Panic disorder Alcohol withdrawal syndrome without complication (HCC) Alcohol abuse Benzodiazepine withdrawal with complication (HCC) Opioid withdrawal (HCC) Amphetamine withdrawal (HCC) Pneumonia Palpitations Other specified abnormal findings of blood chemistry Dermatitis Depression Positive 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 History of pancreatitis Severe alcohol use disorder (HCC) Severe opioid use disorder on maintenance therapy (HCC) Severe episode of recurrent major depressive disorder, without psychotic features (HCC) * Care Plan - Marilynn Tinoco RN - 08/13/2023 10:39 AM EDT Problem: Potential for Substance Withdrawal Goal: Verbalizes signs/symptoms of withdrawal Outcome: Progressing Goal: Reports signs/symptoms of withdrawal Outcome: Progressing Goal: Free of withdrawal symptoms Outcome: Progressing Problem: Anxiety Goal: Attempts to manage anxiety with help Outcome: Progressing Goal: Verbalizes ways to manage anxiety Outcome: Progressing Goal: Implements measures to reduce anxiety Outcome: Progressing Problem: Knowledge Deficit Goal: Patient/family/caregiver demonstrates understanding of disease process, treatment plan, medications, and discharge instructions Outcome: Progressing * Care Plan - Velma Forman RN - 08/13/2023 1:43 AM EDT The patient is Moderately Stable - Low risk of patient condition declining or worsening The patient's goals for the shift include rest The clinical goals for the shift include comfort/safety * Care Plan - Gerson Vazquez RN - 08/12/2023 9:00 AM EDT Problem: Potential for Substance Withdrawal Goal: Verbalizes signs/symptoms of withdrawal Outcome: Progressing * Care Coordination - VANITA Toribio - 08/12/2023 8:48 AM EDT Patient provided information for [facility] walk-in is included in patient's discharge paperwork.Patient previously and MAT patient with Dr. Hilton however he has been recently transferred to Dr. Escobar and has an follow-up appointment scheduled on 08/19/2023 at 1 PM. All information is included in discharge paperwork. [facility] continue to follow-up as necessary. s * Care Plan - Marilynn Tinoco RN - 08/11/2023 10:11 PM EDT Problem: Potential for Substance Withdrawal Goal: Verbalizes signs/symptoms of withdrawal Outcome: Progressing Goal: Reports signs/symptoms of withdrawal Outcome: Progressing Goal: Free of withdrawal symptoms Outcome: Progressing Problem: Anxiety Goal: Attempts to manage anxiety with help Outcome: Progressing Goal: Verbalizes ways to manage anxiety Outcome: Progressing Goal: Implements measures to reduce anxiety Outcome: Progressing Problem: Knowledge Deficit Goal: Patient/family/caregiver demonstrates understanding of disease process,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 Lymphocytes Manual 8 Unclassified Cells, Manual Beta Hydroxybutyrate Result Value Ref Range BETA HYDROXYBUTYRATE 1.76 0.20 - 2.81 mg/dL Blood gas, venous (ACH and SB[facility]) Result Value Ref Range pH, Venous 7.395 7.330 - 7.430 pCO2, Venous 38.1 (L) 40.0 - 55.0 mm Hg pO2, Venous 55.0 mm Hg HCO3, Venous 22.8 (L) 23.0 - 27.0 mmol/L O2 Sat, Venous 84.7 % Base Excess, Venous -1.7 -3.0 - 3.0 mmol/L Hgb, blood gas 15.8 Screen only g/dl TCO2, Venous 24.0 24.0 - 28.0 mmol/L Source Of Oxygen Room Air Lipase Result Value Ref Range LIPASE 246 23 - 300 U/L Radiographs: No orders to display : EKG: All EKG's areinterpreted by the Emergency Department Physician in the absence of a production control planner. see their note for interpretation of EKG. EMERGENCY DEPARTMENT COURSE and DIFFERENTIAL DIAGNOSIS/MDM: External Records Review: Reviewed Care Everywhere. Social Determinants of Health: Alcoholism. Roro Valdivia is a 37 y.o. male who presented to the emergency department for detox from alcohol.Differential diagnosis included alcohol withdrawal, alcohol intoxication, other drug abuse. Pt given IV fluids, Zofran and phenobarbital. Our workup consisted of ordering/reviewing CBC, CMP, UDS, Covid, ethanol level. CBC showed no leukocytosis. CMP showed anion gap 22. Will add on a VBG and beta hydroxybutyrate. VBG normal. Beta hydroxybutyrate normal. COVID-negative. Urine drug screen negative. Ethanol 0.39. Patient impression and work-up is most consistent with alcohol abuse and transaminitis. Transaminitis was somewhat similar to previous labs. Patient had no abdominal pain. Patient is medically cleared for detox admission. Consulted on-call detox physician Dr. Ramsey who accepted patient for admission for alcohol withdrawal. Patient denied SI or HI. I do not think patient needs inpatient involuntary psychiatric admission. Patient was not pink slipped. Final Diagnosis: 1. Alcohol withdrawal syndrome without complication (HCC) 2. Transaminitis 3. Alcohol abuse Medications promethazine (Phenergan) injection 12.5 mg (has no administration in time range) sodium chloride 0.9 % bolus 1,000 mL (has no administration in time range) PHENobarbital tablet 97.2 mg (97.2 mg Oral Given 08/10/232049) LORazepam (Ativan) injection 2 mg (1 mg IntraMUSCular Given 08/10/232049) sodium chloride 0.9 % bolus 1,000 mL (0 mL IntraVENous Stopped 08/11/23 0001) ondansetron (Zofran) injection 4 mg (4 mg IntraVENous Given 08/10/232131) Diagnoses as of 08/11/23 0009 Transaminitis Alcohol abuse Alcohol withdrawal syndrome without complication (HCC) CONSULTS: None PROCEDURES: Unless otherwise noted below, none Procedures DISPOSITION/PLAN Admit 08/11/2023 12:09:52 AM PATIENT REFERRED TO: No follow-up provider specified. DISCHARGE MEDICATIONS: New Prescriptions No medications on file @[facility]([id number]:LAST:1)@ (Please note: Portions of this note were completed with a voice recognition program. Efforts were made to edit the dictations but occasionally words and phrases are mis-transcribed.) Form [id number] Kev Carballo PA-C Acute Care [facility] Kev Carballo PA-C 08/11/23 0521 * Jossy Lynn MD - 08/10/2023 7:36 PM EDT Emergency Department Encounter [facility] EMERGENCY DEPT Patient: Roro Valdivia : 1985 Date of Evaluation: 08/10/2023 ED Supervising Physician: Jossy Lynn MD I independently examined and evaluated Roro Valdivia. In brief, Roro Valdivia is a 37 y.o. male with a past medical history significant for alcohol abuse, hypertension, pancreatitis, and seizure disorder that presents to the emergency department for evaluation for alcohol detox. Patient states that he drinks about 1/5 of vodka a day. She states thathis last drink was before coming to the department. Patient states that he is interested in detox. He states he has tried detox before but relapsed. When asked if suicidal patient stated was suicidalwith no plan. He denied homicidal ideation. He also denies any other substance abuse. Patient denies headaches, chest pain, shortness of breath, abdominal pain, or diarrhea but endorses nausea and vom iting. ED Triage Vitals Temp Heart Rate Resp BP 08/10/23200408/10/23200408/10/23200408/10/232004 37.2 C (99 F) 94 18 (!) 150/106 SpO2 Temp Source Heart Rate Source Patient Position 08/10/23200408/10/23200408/10/23200408/11/23220 96 % Temporal Monitor Lying BP Location FiO2 (%) 08/11/23 0221 -- Right arm Focused exam: [id number] in no acute distress. Alert and oriented X 3. Lungs clear to auscultation bilaterally with no wheezes or crackles appreciated. Heart rate and rhythm regular with no murmurs. Abdomensoft nontender nondistended with positive bowel sounds. No edema appreciated on the lower extremities bilaterally. Patient with suicidal ideation without plan but no homicidal ideation. I performed a substantial portion of the visit including the MDM. Brief ED course/MDM: No orders to display Labs Reviewed COMPREHENSIVE METABOLIC PANEL - Abnormal Result Value SODIUM 145 POTASSIUM 3.8 CHLORIDE 105 CARBON DIOXIDE 18 (*) ANION GAP 22 (*) UREA NITROGEN 5 (*) CREATININE 0.78 GLUCOSE 112 (*) CALCIUM 9.1 AST (SGOT) 237 (*) ALT 176 (*) ALKALINE PHOSPHATASE 135 (*) ALBUMIN 5.0 BILIRUBIN, TOTAL 0.7 TOTAL PROTEIN 8.8 (*) eGFR >90.0 ETHANOL - Abnormal ETHANOL IN SER/PLAS 0.392 (*) Narrative: NOTE: This result is for medical treatment only. Analysis performed using non- forensic procedures. MANUAL DIFFERENTIAL (CELLAVISION) - Abnormal RBC Morphology abnormal Anisocytosis Slight (*) Poikilocytes Rare (*) Macrocytes Slight (*) Polychromasia Rare (*) Dominic Cells Rare (*) Neutrophils % 37 (*) Bands % 2 (*) Lymphocytes % 49 (*) Atypical Lymphocytes % 8 (*) Monocytes % 5 Absolute Neutrophil Count 3.9 Bands Absolute 0.2 (*) Lymphocytes Absolute 4.9 (*) Atypical Lymphs Absolute 0.8 (*) Monocytes Absolute 0.5 Neutrophils Manual 37 Lymphocytes Manual 49 Monocytes Manual 5 Eosinophils Manual Basophils Manual Bands Manual 2 Metamyelocytes Manual Myelocytes Manual Promyelocytes Manual Blasts Manual Atypical Lymphocytes Manual 8 Unclassified Cells, Manual BLOOD GAS, VENOUS - Abnormal pH, Venous 7.395 pCO2, Venous 38.1 (*) pO2, Venous 55.0 HCO3, Venous 22.8 (*) O2 Sat, Venous 84.7 Base Excess, Venous -1.7 Hgb, blood gas 15.8 TCO2, Venous 24.0 Source Of Oxygen Room Air Narrative: Assessment of oxygenation is best done with an arterial blood gas determination. Reference ranges for pO2, bicarbonate, and base excess are for mixed venous blood. Specimens drawn from a peripheral vein will often have higher values. SARS-COV-2 ANTIGEN - Normal SARS-CoV-2 Antigen Negative CBC WITH AUTO DIFFERENTIAL - Normal Auto WBC 9.9 RBC 5.03 Hemoglobin 15.6 Hematocrit 46.8 MCV 93.0 MCH 31.0 MCHC 33.3 RDW 14.7 Platelets 273 MPV 9.3 CK - Normal CK 125 COMPLETE URINALYSIS - Normal Color, Urine Light Yellow Clarity, Urine Clear pH, Urine 6.0 Leukocytes, Urine Negative Nitrite, Urine Negative Protein, Urine Negative Glucose, Urine Normal Bilirubin, Urine Negative Ketones, Urine Negative Urobilinogen, Urine Normal Blood, Urine Negative SPECIFIC GRAVITY OF URINE (NUMERIC) 1.008 BETA HYDROXYBUTYRATE - Normal BETA HYDROXYBUTYRATE 1.76 LIPASE - Normal LIPASE 246 DRUGS OF ABUSE AMPHETAMINE SCREEN Negative BARBITURATES SCREEN Negative BENZODIAZEPINE SCREEN Negative COCAINE METAB. SCREEN Negative METHADONE SCREEN Negative OPIATES SCREEN Negative OXYCODONE SCREEN Negative PHENCYCLIDINE SCREEN Negative Narrative: The expected value for all of the drugs listed above is Negative. The following drugs or drug groups have been screened for by Immunoassay at the following thresholds: Amphetamine class (1000 ng/mL) Barbiturates (200 ng/mL) Benzodiazepines (200 ng/mL) Cocaine (300 ng/mL) Methadone (300 ng/mL) Opiates (300 ng/mL) Oxycodone (100 ng/mL) PCP (25 ng/mL) NOTE: These results are for medical treatment only. Analysis performed using non-forensic procedures. POSITIVE results are NOT confirmed by a more specific alternative method unless requested. If confirmation is needed, request confirmation under separateorder. COMPLETE URINALYSIS WITH REFLEX TO CULTURE Narrative: The following orders were created for panel order Urinalysis complete with reflex to Culture. Procedure Abnormality Status --------- ------ Complete Urinalysis[[id number]] Normal Final result Please view results for these tests on the individual orders. Diagnoses as of 08/11/23 0249 Transaminitis Alcohol abuse Alcohol withdrawal syndrome without complication (HCC) 37-year-old presenting for evaluation for alcohol detox with suicidal ideation without plan. Given presentation medical clearance workup was completed. Workup was required for no UTI, negative drug screen, a pH of 7.39 with mild hypercarbia with a pCO2 of 38. Patient with no pancreatitis, with stable transaminitis. Mild acidosis present with a CO2 of 18 with an anion gap of 22 for which the patient received 2 L of IV fluids. No renal function impairment or electrolyte abnormalities appreciated. Patient with no leukocytosis or anemia. No thrombocytopenia present. Beta-hydroxybutyrate at 1.76. COVID test negative. Alcohol level 392. While in the department patient received phenobarbital 97.2 mg and lorazepam 2 mg. Given patient isactively vomiting he was given 4 mg of Zofran. On reevaluation patient continues to vomit. Given 12.5 mg of Phenergan. Patient medically cleared for detox medicine evaluation with possible psychiatric consultation. Discussed with detox medicine who accepted patient for admission. Admitted in stable condition. All diagnostic, treatment, and disposition decisions were made by myself in conjunction with the [facility]. For all further details of the patient's emergency department visit, please see their documentation. This will serve as my [facility] Supervisory note and shared attestation. (Please note that portions of this note may have been completed with a voice recognition program. Efforts were made to edit the dictations but occasionally words are mis-transcribed.) Jossy Lynn MD [employer] Jossy Lynn MD 08/11/23 0252 documented in this [facility]07-02-2024 Emergency department Note* Brandy Guzman, EMT - 08/11/2023 2:41 AM EDT Transport here with protective services to escort pt to [facility], pt sent with 2 bags of belongings. Brandy Guzman EMT 08/11/23 0242 [facility] Emergency [facility]* [facility] - 08/11/2023 2:17 AM EDT PS escort called for pt transfer [facility] 08/11/23 0217 [facility]bpfo63-47-7270 Emergency department Note* Beatris Parada RN - 08/11/2023 2:00 AM EDT Report to JOSE GUADALUPE Mehta RN 08/11/23 0201 [facility]87-[facility]-9924 Emergency department Note* Beatris Parada RN - 08/11/2023 1:56 AM EDT Report called to JOSE GUADALUPE Bhardwaj on [address]E Beatris Parada RN 08/11/23 0156 [facility]acpm25-31-7153 Emergency department Note* [facility] - 08/11/2023 12:37 AM EDT Pt used urinal in [facility] 08/11/23 0037 [address]cb91-17-9377 Emergency department Note* [facility] - 08/11/2023 12:32 AM EDT JOSE GUADALUPE Mehta in [facility] 08/11/23 0032 [facility]xbqvo60-21-8460 Emergency department Note* Edilma Otoole - 08/10/2023 11:09 PM EDT Pt requesting meds for nausea. Edilma Otoole 08/10/23 2309 [facility]Ltbvoe77-54-4212 Emergency department Note* [facility] - 08/10/2023 10:47 PM EDT Pt is standing at door, trying to come out of rm. Redirected to get back to bed bc of IV [facility] 08/10/23 2248 [facility]Icmjpt11-06-4097 Emergency department Note* Janine Lino RN - 08/10/2023 10:34 PM EDT Pt reminded to keep arm straight for fluid infusion at this time - still has about 800mL remaining in bag Janine Lino RN 08/10/23 2234 [facility]Qjoaqc41-08-0616 Emergency department Note* [facility]/10/[facility]23 10:23 PM EDT JOSE GUADALUPE Gonzalez at bedside [facility] 08/10/23 2223 [facility] HospitalXiklkv52-49-2663 NoteNOTE: This result is for medical treatment only. Analysis performed using non-forensic procedures. [facility]Hdueyq77-41-5507 Emergency department Note* [facility] - 08/10/2023 9:29 PM EDT JOSE GUADALUPE Gonzalez in for IV [facility] 08/10/232128 [facility] HospitalVvfonr30-70-9344 Emergency department Note* Janine Lino RN - 08/10/2023 9:08 PM EDT Pt told Dr. Jiang and ESTRELLA Angulo that he is not suicidal or homicidal at this time - denying any suicidal ideations Janine Lino RN 08/10/232229 [facility] HospitalCddmwr26-95-1389 Emergency department Note* [facility] - 08/10/2023 9:07 PM EDT Kev DE LA ROSA in [facility] 08/10/232107 [facility] HospitalVoebiy72-36-9646 Emergency department Note* [facility] - 08/10/2023 9:05 PM EDT Pt says he is throwing up really bad, but on dry heaving [facility] 08/10/232104 [facility]Abawbp41-43-2467 Emergency department Note* [facility] - 08/10/2023 8:52 PM EDT JOSE GUADALUPE Gonzalez in [facility] 08/10/232051 [facility] HospitalWplqhd89-73-5077 Emergency department Note* [facility] - 08/10/2023 8:45 PM EDT Pt wanded by MARCOS [facility] 08/10/232044 [address]vmhcr79-35-4173 Emergency department Note* Janine Lino RN - 08/10/2023 8:45 PM EDT Pt states he originally came in for detox from alcohol -- states his last drink was prior to comingin and he drinks 1/5 a day. Pt states he was just recently in detox. Pt also states he has psychological problems. Pt states he has some thoughts of SI but no plan. States his mom is fed up with him at home. Pt tolerated blood draw at this time Janine Lino RN 08/10/232046 [facility] HospitalBsqldd26-78-6528 Emergency department Note* [facility] - 08/10/2023 8:44 PM EDT Pt has 2 bags [facility] 08/10/232043 [facility] HospitalQnewkq27-53-6551 Emergency department Note* [facility] 08/10/2023 8:[address] Jiang at bedside [facility] 08/10/232042 [facility] HospitalYvxxsq67-37-2350 Emergency department Note* [facility]/10/[facility]23 8:42 PM EDT JOSE GUADALUPE Gonzalez at bedside [facility] 08/10/232041 [facility] HospitalRlqoit45-02-3826 Emergency department Note* [facility] - 08/10/2023 8:29 PM EDT Medic Brandy is in rm to get pt changed into gowns and non slip socks [facility] 08/10/232028 [facility] HospitalDzlpxi80-20-9111 Emergency department Note* [facility] 08/10/2023 8:23 PM EDT Pt is tearful while laying in bed [facility] 08/10/232022 [facility] HospitalZuqkfc56-45-6221 Emergency department Note* [facility] 08/10/2023 8:21 PM EDT Pt brought to by JOSE GUADALUPE Gonzalez, via Grere Winters 08/10/232021 [facility] HospitalRehkhn61-05-3966 Physician Emergency department Note* Tana Christensen PA-C - 08/10/2023 7:36 PM EDT Emergency Department Encounter [facility] EMERGENCY DEPT Patient: Roro Valdivia : 1985 Date of Evaluation: 08/10/2023 ED Provider: Tana Christensen PA-C I saw the patient as the Clinician in Triage and performed a brief history and physical exam, established acuity, and ordered appropriate tests to develop basic plan of care. I wore appropriate PPE for the entirety of this encounter. Brief HPI: In brief, Roro Valdivia is a 37 y.o. that presents for complaint of alcohol withdrawal. Patient reports that he would like to detox from alcohol. Patient says that he last drank just prior to arrival. He said that he feels crazy and is feeling suicidal. Patient says that he does not feel like anyone can help him anymore and he has had thoughts of harming and killing himself. Patient denies any homicidal ideation. He says that he is not having hallucinations or delusions but does not elaborate further on why he feels crazy. Says that he follows with a psychiatrist, he has been taking his medications including Zyprexa and clonidine as prescribed. Focused Physical exam: Alert, oriented, patient tearful emotional in triage. Expressing suicidal ideation. Vital signs are otherwise stable. Cardiac auscultation with regular rhythm. Lungs are auscultation bilaterally. Abdomen soft, nontender, nondistended, without peritoneal signs. Plan/MDM: Will obtain labs and psychiatric evaluation Please see subsequent provider note for further details and disposition (Comment: Please note this report has been produced using speech recognition software and may contain errors related to that system including errors in grammar, punctuation, and spelling as well as words and phrases that may be inappropriate. If there are any questions or concerns please feel free to contact the dictating provider for clarification) Tana Christensen PA-C [employer] Tana Christensen PA-C 08/10/232026 [facility] Phone: [phone] 561-568107-01-2024 Physician Emergency department Note* Kev Carballo PA-C - 08/10/2023 7:36 PM EDT Emergency Department Encounter [facility] EMERGENCY DEPT Patient: Roro Valdivia : 1985 Date of Evaluation: 08/10/2023 ED [facility] Provider: Kev Carballo PA-C EDcare was supervised by Dr. Jiang who independently examined and evaluated the patient. Please see their attestation note for further details. Chief Complaint Chief Complaint Patient presents with Alcohol Problem Patient arrives via triage requesting detox from alcohol. Patient states taht he drinks a fifth or more per day, states that last drink was today but unsure of what time. Patient is tearful but cooperative on arrival, VERY unsteady on his feet. Patient states that he has detoxed before, does endorse seizures with detox in the past [place] I was wearing a N95, Surgical mask for the entirety of this encounter. Roro Valdivia is a 37 y.o. male who presents to the emergency department for detox from alcohol. Patient said he drinks about a fifth a day. Last drink was just before he got here. Patient also nauseous. Denies SI or HI. Denies any other drug use. Limitations to history: Intoxication Outside historians: EMR Past History Past Medical History: Diagnosis Date Alcohol withdrawal with inpatient treatment, uncomplicated (HCC) 03/15/2022 GERD (gastroesophageal reflux disease) History of pancreatitis 01/07/2023 Hypertension Pancreatitis Seizures (HCC) SVT (supraventricular tachycardia) ([facility]) Tourette syndrome Past Surgical History: Procedure Laterality Date APPENDECTOMY Social History Socioeconomic History Marital status: Single Tobacco Use Smoking status: Every Day Current packs/day: 1.00 Types: Cigarettes Smokeless tobacco: Never Vaping Use Vaping status: Never Used Substance and Sexual Activity Alcohol use: Not Currently Comment: 1 liter black velvet and a case of beer per day Drug use: Yes Types: Cocaine, Methamphetamines, Oxycodone, Fentanyl, Heroin, Benzodiazepines Sexual activity: Not Currently Social Determinants of Health Financial Resource Strain: High Risk (11/04/2022) Overall Financial Resource Strain (CARDIA) Difficulty of Paying Living Expenses: Very hard Food Insecurity: Food Insecurity Present (06/26/2023) Hunger Vital Sign Worried About Running Out of Food in the Last Year: Often true Ran Out of Food in the Last Year: Often true Transportation Needs: Unmet Transportation Needs (06/26/2023) PRAPARE - Transportation Lack of Transportation (Medical): Yes Lack of Transportation (Non-Medical): Yes Physical Activity: Inactive (11/04/2022) Exercise Vital Sign Days of Exercise per Week: 0 days Minutes of Exercise per Session: 0 min Stress: Stress Concern Present (11/04/2022) [employer] - Occupational Stress Questionnaire Feeling of Stress : To some extent Social Connections: Socially Isolated (06/24/2023) Social Connection and Isolation Panel [NHANES] Frequency of Communication with Friends and Family: More than three times a week Frequency of Social Gatherings with Friends and Family: More than three times a week Attends [employer] Services: Never Active Member of Clubs or Organizations: No Attends Club or Organization Meetings: Never Marital Status: Never Intimate Partner Violence: Not At Risk (06/26/2023) Humiliation, Afraid, Rape, and Kick questionnaire Fear of Current or Ex-Partner: No Emotionally Abused: No Physically Abused: No Sexually Abused: No Housing Stability: High Risk (06/26/2023) Housing Stability Vital Sign Unable to Pay for Housing in the Last Year: Yes Number of Places Lived in the Last Year: 0 Unstable Housing in the Last Year: Yes Medications/Allergies Previous Medications BUPRENORPHINE-NALOXONE (SUBOXONE) 8-2 MG PER SUBLINGUAL FILM Place 1 Film under the tongue daily for 7 days. CLONIDINE (CATAPRES) 0.1 MG TABLET Take 1 tablet (0.1 mg) by mouth 2 times daily. METOPROLOL SUCCINATE XL (TOPROL-XL) 25 MG 24 HR TABLET Take 2 tablets (50 mg) by mouth daily. Do not crush or chew. OLANZAPINE (ZYPREXA) 5 MG TABLET Take 1 tablet (5 mg) by mouth Nightly. VENLAFAXINE XR (EFFEXOR XR) 37.5 MG 24 HR CAPSULE Take 1 capsule (37.5 mg) by mouth daily (with breakfast). Do not crush or chew. No Known Allergies Physical Exam BP (!) 150/106 Pulse 94 Temp 37.2 C (99 F) (Temporal) Resp 18 Ht 1.854 m (6' 1) Wt 122 kg (270 lb) SpO2 96% BMI 35.62 kg/m Physical Exam GENERAL APPEARANCE: Awake and alert. Cooperative. HEENT: Normocephalic. Atraumatic. Sclera anicteric. Tolerates saliva. No trismus. NECK: Supple. Trachea midline. CARDIO: Normal rate. Radial pulses symmetrical and palpable LUNGS: Respirations unlabored. CTAB. ABDOMEN: Soft. Non-distended. Non-tender throughout. SKIN: Warm and dry. NEUROLOGICAL: No gross facial drooping. PSYCHIATRIC: Normal mood. SCREENINGS D Labs: Results for orders placed or performed during the hospital encounter of 08/10/23 SARS-CoV-2 Antigen - Behavioral Health Use Specimen: Nasal; Swab Result Value Ref Range SARS-CoV-2 Antigen Negative Negative Comprehensive metabolic panel Result Value Ref Range SODIUM 145 135 - 145 mmol/L POTASSIUM 3.8 3.5 - 5.1 mmol/L CHLORIDE 105 98 - 107 mmol/L CARBON DIOXIDE 18 (L) 22 - 30 mmol/L ANION GAP 22 (H) 3 - 13 mmol/L UREA NITROGEN 5 (L) 9 - 20 mg/dL CREATININE 0.78 0.66 - 1.25 mg/dL GLUCOSE 112 (H) 70 - 100 mg/dL CALCIUM 9.1 8.4 - 10.4 mg/dL AST (SGOT) 237 (H) 15 - 46 U/L ALT 176 (H) 0 - 49 U/L ALKALINE PHOSPHATASE 135 (H) 38 - 126 U/L ALBUMIN 5.0 3.5 - 5.0 g/dL BILIRUBIN, TOTAL 0.7 0.2 - 1.3 mg/dL TOTAL PROTEIN 8.8 (H) 6.3 - 8.2 g/dL eGFR >90.0 >60.0 mL/min/1.73m*2 Ethanol Result Value Ref Range ETHANOL IN SER/PLAS 0.392 (HH) 0.000 - 0.010 g/dL CBC auto differential Result Value Ref Range Auto WBC 9.9 3.6 - 10.7 10*3/uL RBC 5.03 4.40 - 5.90 10*6/uL Hemoglobin 15.6 13.0 - 18.0 g/dL Hematocrit 46.8 40.0 - 52.0 % MCV 93.0 77.0 - 99.0 fL MCH 31.0 26.0 - 34.0 pg MCHC 33.3 30.5 - 36.0 % RDW 14.7 11.5 - 15.0 % Platelets 273 140 - 440 10*3/uL MPV 9.3 9.0 - 12.7 fL CK Result Value Ref Range CK 125 30 - 170 U/L MANUAL DIFFERENTIAL (CELLAVISION) Result Value Ref Range RBC Morphology abnormal Anisocytosis Slight (A) (none) Poikilocytes Rare (A) (none) Macrocytes Slight (A) (none) Polychromasia Rare (A) (none) Dominic Cells Rare (A) (none) Neutrophils % 37 (L) 38 - 82 % Bands % 2 (H) <=0 % Lymphocytes % 49 (H) 15 - 45 % Atypical Lymphocytes % 8 (H) <=0 % Monocytes % 5 5 - 13 % Absolute Neutrophil Count 3.9 1.8 - 7.5 10*3/uL Bands Absolute 0.2 (H) <=0.0 10*3/uL Lymphocytes Absolute 4.9 (H) 1.0 - 4.3 10*3/uL Atypical Lymphs Absolute 0.8 (H) <=0.0 10*3/uL Monocytes Absolute 0.5 0.0 - 0.9 10*3/uL Neutrophils Manual 37 Lymphocytes Manual 49 Monocytes Manual 5 Eosinophils Manual Basophils Manual Bands Manual 2 Metamyelocytes Manual Myelocytes Manual Promyelocytes Manual Blasts Manual Atypical Lymphocytes Manual 8 Unclassified Cells, Manual Beta Hydroxybutyrate Result Value Ref Range BETA HYDROXYBUTYRATE 1.76 0.20 - 2.81 mg/dL Blood gas, venous (ACH and SB[facility]) Result Value Ref Range pH, Venous 7.395 7.330 - 7.430 pCO2, Venous 38.1 (L) 40.0 - 55.0 mm Hg pO2, Venous 55.0 mm Hg HCO3, Venous 22.8 (L) 23.0 - 27.0 mmol/L O2 Sat, Venous 84.7 % Base Excess, Venous -1.7 -3.0 - 3.0 mmol/L Hgb, blood gas 15.8 Screen only g/dl TCO2, Venous 24.0 24.0 - 28.0 mmol/L Source Of Oxygen Room Air Lipase Result Value Ref Range LIPASE 246 23 - 300 U/L Radiographs: No orders to display : EKG: All EKG's areinterpreted by the Emergency Department Physician in the absence of a production control planner. see their note for interpretation of EKG. EMERGENCY DEPARTMENT COURSE and DIFFERENTIAL DIAGNOSIS/MDM: External Records Review: Reviewed Care Everywhere. Social Determinants of Health: Alcoholism. Roro Valdivia is a 37 y.o. male who presented to the emergency department for detox from alcohol.Differential diagnosis included alcohol withdrawal, alcohol intoxication, other drug abuse. Pt given IV fluids, Zofran and phenobarbital. Our workup consisted of ordering/reviewing CBC, CMP, UDS, Covid, ethanol level. CBC showed no leukocytosis. CMP showed anion gap 22. Will add on a VBG and beta hydroxybutyrate. VBG normal. Beta hydroxybutyrate normal. COVID-negative. Urine drug screen negative. Ethanol 0.39. Patient impression and work-up is most consistent with alcohol abuse and transaminitis. Transaminitis was somewhat similar to previous labs. Patient had no abdominal pain. Patient is medically cleared for detox admission. Consulted on-call detox physician Dr. Ramsey who accepted patient for admission for alcohol withdrawal. Patient denied SI or HI. I do not think patient needs inpatient involuntary psychiatric admission. Patient was not pink slipped. Final Diagnosis: 1. Alcohol withdrawal syndrome without complication (HCC) 2. Transaminitis 3. Alcohol abuse Medications promethazine (Phenergan) injection 12.5 mg (has no administration in time range) sodium chloride 0.9 % bolus 1,000 mL (has no administration in time range) PHENobarbital tablet 97.2 mg (97.2 mg Oral Given 08/10/232049) LORazepam (Ativan) injection 2 mg (1 mg IntraMUSCular Given 08/10/232049) sodium chloride 0.9 % bolus 1,000 mL (0 mL IntraVENous Stopped 08/11/233039) ondansetron (Zofran) injection 4 mg (4 mg IntraVENous Given 08/10/232131) Diagnoses as of 08/11/23 0009 Transaminitis Alcohol abuse Alcohol withdrawal syndrome without complication (HCC) CONSULTS: None PROCEDURES: Unless otherwise noted below, none Procedures DISPOSITION/PLAN Admit 08/11/2023 12:09:52 AM PATIENT REFERRED TO: No follow-up provider specified. DISCHARGE MEDICATIONS: New Prescriptions No medications on file @[facility]([id number]:LAST:1)@ (Please note: Portions of this note were completed with a voice recognition program. Efforts were made to edit the dictations but occasionally words and phrases are mis-transcribed.) Form [id number] Kev Carballo PA-C [facility] Kev Carballo PA-C 08/11/23 0521 [facility]-6815 Physician Emergency department Note* Jossy Lynn MD - 08/10/2023 7:36 PM EDT Emergency Department Encounter [facility] EMERGENCY DEPT Patient: Roro Valdivia : 1985 Date of Evaluation: 08/10/2023 ED Supervising Physician: Jossy Lynn MD I independently examined and evaluated Roro Valdivia. In brief, Roro Valdivia is a 37 y.o. male with a past medical history significant for alcohol abuse, hypertension, pancreatitis, and seizure disorder that presents to the emergency department for evaluation for alcohol detox. Patient states that he drinks about 1/5 of vodka a day. She states thathis last drink was before coming to the department. Patient states that he is interested in detox. He states he has tried detox before but relapsed. When asked if suicidal patient stated was suicidalwith no plan. He denied homicidal ideation. He also denies any other substance abuse. Patient denies headaches, chest pain, shortness of breath, abdominal pain, or diarrhea but endorses nausea and vom iting. ED Triage Vitals Temp Heart Rate Resp BP 08/10/23200408/10/23200408/10/23200408/10/232004 37.2 C (99 F) 94 18 (!) 150/106 SpO2 Temp Source Heart Rate Source Patient Position 08/10/23200408/10/23200408/10/23200408/11/23 0221 96 % Temporal Monitor Lying BP Location FiO2 (%) 07/02/24 0221 -- Right arm Focused exam: [id number] in no acute distress. Alert and oriented X 3. Lungs clear to auscultation bilaterally with no wheezes or crackles appreciated. Heart rate and rhythm regular with no murmurs. Abdomensoft nontender nondistended with positive bowel sounds. No edema appreciated on the lower extremities bilaterally. Patient with suicidal ideation without plan but no homicidal ideation. I performed a substantial portion of the visit including the MDM. Brief ED course/MDM: No orders to display Labs Reviewed COMPREHENSIVE METABOLIC PANEL - Abnormal Result Value SODIUM 145 POTASSIUM 3.8 CHLORIDE 105 CARBON DIOXIDE 18 (*) ANION GAP 22 (*) UREA NITROGEN 5 (*) CREATININE 0.78 GLUCOSE 112 (*) CALCIUM 9.1 AST (SGOT) 237 (*) ALT 176 (*) ALKALINE PHOSPHATASE 135 (*) ALBUMIN 5.0 BILIRUBIN, TOTAL 0.7 TOTAL PROTEIN 8.8 (*) eGFR >90.0 ETHANOL - Abnormal ETHANOL IN SER/PLAS 0.392 (*) Narrative: NOTE: This result is for medical treatment only. Analysis performed using non- forensic procedures. MANUAL DIFFERENTIAL (CELLAVISION) - Abnormal RBC Morphology abnormal Anisocytosis Slight (*) Poikilocytes Rare (*) Macrocytes Slight (*) Polychromasia Rare (*) [place] Cells Rare (*) Neutrophils % 37 (*) Bands % 2 (*) Lymphocytes % 49 (*) Atypical Lymphocytes % 8 (*) Monocytes % 5 Absolute Neutrophil Count 3.9 Bands Absolute 0.2 (*) Lymphocytes Absolute 4.9 (*) Atypical Lymphs Absolute 0.8 (*) Monocytes Absolute 0.5 Neutrophils Manual 37 Lymphocytes Manual 49 Monocytes Manual 5 Eosinophils Manual Basophils Manual Bands Manual 2 Metamyelocytes Manual Myelocytes Manual Promyelocytes Manual Blasts Manual Atypical Lymphocytes Manual 8 Unclassified Cells, Manual BLOOD GAS, VENOUS - Abnormal pH, Venous 7.395 pCO2, Venous 38.1 (*) pO2, Venous 55.0 HCO3, Venous 22.8 (*) O2 Sat, Venous 84.7 Base Excess, Venous -1.7 Hgb, blood gas 15.8 TCO2, Venous 24.0 Source Of Oxygen Room Air Narrative: Assessment of oxygenation is best done with an arterial blood gas determination. Reference ranges for pO2, bicarbonate, and base excess are for mixed venous blood. Specimens drawn from a peripheral vein will often have higher values. SARS-COV-2 ANTIGEN - Normal SARS-CoV-2 Antigen Negative CBC WITH AUTO DIFFERENTIAL - Normal Auto WBC 9.9 RBC 5.03 Hemoglobin 15.6 Hematocrit 46.8 MCV 93.0 MCH 31.0 MCHC 33.3 RDW 14.7 Platelets 273 MPV 9.3 CK - Normal CK 125 COMPLETE URINALYSIS - Normal Color, Urine Light Yellow Clarity, Urine Clear pH, Urine 6.0 Leukocytes, Urine Negative Nitrite, Urine Negative Protein, Urine Negative Glucose, Urine Normal Bilirubin, Urine Negative Ketones, Urine Negative Urobilinogen, Urine Normal Blood, Urine Negative SPECIFIC GRAVITY OF URINE (NUMERIC) 1.008 BETA HYDROXYBUTYRATE - Normal BETA HYDROXYBUTYRATE 1.76 LIPASE - Normal LIPASE 246 DRUGS OF ABUSE AMPHETAMINE SCREEN Negative BARBITURATES SCREEN Negative BENZODIAZEPINE SCREEN Negative COCAINE METAB. SCREEN Negative METHADONE SCREEN Negative OPIATES SCREEN Negative OXYCODONE SCREEN Negative PHENCYCLIDINE SCREEN Negative Narrative: The expected value for all of the drugs listed above is Negative. The following drugs or drug groups have been screened for by Immunoassay at the following thresholds: Amphetamine class (1000 ng/mL) Barbiturates (200 ng/mL) Benzodiazepines (200 ng/mL) Cocaine (300 ng/mL) Methadone (300 ng/mL) Opiates (300 ng/mL) Oxycodone (100 ng/mL) PCP (25 ng/mL) NOTE: These results are for medical treatment only. Analysis performed using non-forensic procedures. POSITIVE results are NOT confirmed by a more specific alternative method unless requested. If confirmation is needed, request confirmation under separateorder. COMPLETE URINALYSIS WITH REFLEX TO CULTURE Narrative: The following orders were created for panel order Urinalysis complete with reflex to Culture. Procedure Abnormality Status --------- ------ Complete Urinalysis[[id number]] Normal Final result Please view results for these tests on the individual orders. Diagnoses as of 08/11/23 0249 Transaminitis Alcohol abuse Alcohol withdrawal syndrome without complication (HCC) 37-year-old presenting for evaluation for alcohol detox with suicidal ideation without plan. Given presentation medical clearance workup was completed. Workup was required for no UTI, negative drug screen, a pH of 7.39 with mild hypercarbia with a pCO2 of 38. Patient with no pancreatitis, with stable transaminitis. Mild acidosis present with a CO2 of 18 with an anion gap of 22 for which the patient received 2 L of IV fluids. No renal function impairment or electrolyte abnormalities appreciated. Patient with no leukocytosis or anemia. No thrombocytopenia present. Beta-hydroxybutyrate at 1.76. COVID test negative. Alcohol level 392. While in the department patient received phenobarbital 97.2 mg and lorazepam 2 mg. Given patient isactively vomiting he was given 4 mg of Zofran. On reevaluation patient continues to vomit. Given 12.5 mg of Phenergan. Patient medically cleared for detox medicine evaluation with possible psychiatric consultation. Discussed with detox medicine who accepted patient for admission. Admitted in stable condition. All diagnostic, treatment, and disposition decisions were made by myself in conjunction with the [facility]. For all further details of the patient's emergency department visit, please see their documentation. This will serve as my [facility] Supervisory note and shared attestation. (Please note that portions of this note may have been completed with a voice recognition program. Efforts were made to edit the dictations but occasionally words are mis-transcribed.) Jossy Lynn MD [employer] Jossy Lynn MD 08/11/23 0252 [place] Phone: [phone] Telephone encounter Note* Telephone Encounter - Branden Maldonado - 07/16/2023 3:08 PM EDT Patient next appt 07/22/2023 Patient cancelled 07/15/23 appt and missed 07/01/23 and 07/08/23 appt . [id number] Miscellaneous Notes* Telephone Encounter - Branden Maldonado - 07/16/2023 3:08 PM EDT Patient next appt 07/22/2023 Patient cancelled 07/15/23 appt and missed 07/01/23 and 07/08/23 appt . * Telephone Encounter - Millicent Lau - 07/16/2023 2:46 PM EDT Medication name: Buprenorphine Naloxone Suboxone 8-2 mg per sublingual film Medication dosage: 8-2 mg Monthly quantity needed: 1 film How many day supply requestin film Medication route: oral (PO) Medication administration time(s): Place 1 Film under the tongue daily for 7 days If taking medication PRN, reason for taking medication: N/A If this is a controlled substance do you receive this or any other controlled medication from any other doctor or facility: N/A Ordering provider: Dr Hilton Date of last office visit: 07.08.23 Date of next office visit: 07.22.23 Date of last refill: (see medication tab): 07.03.23 Updated/Validated preferred pharmacy: Yes Patient instructed to contact the pharmacy prior to picking up the medication: Yes documented in this [id number] Telephone encounter Note* Telephone Encounter - Millicent Lau - 07/16/2023 2:46 PM EDT Medication name: Buprenorphine Naloxone Suboxone 8-2 mg per sublingual film Medication dosage: 8-2 mg Monthly quantity needed: 1 film How many day supply requestin film Medication route: oral (PO) Medication administration time(s): Place 1 Film under the tongue daily for 7 days If taking medication PRN, reason for taking medication: N/A If this is a controlled substance do you receive this or any other controlled medication from any other doctor or facility: N/A Ordering provider: Dr Hilton Date of last office visit: 07.08.23 Date of next office visit: 07.22.23 Date of last refill: (see medication tab): 07.03.23 Updated/Validated preferred pharmacy: Yes Patient instructed to contact the pharmacy prior to picking up the medication[id number] History of Present illness Narrative* Stone Ramsey MD - 06/28/2023 11:29 AM EDT Chief complaint Chief Complaint Patient presents with Drug / Alcohol Assessment Pt wants detox from xanex, crack, meth, ETOH, coke. Daily user of anything wants to get help. Seen for follow up of substance dependence and use and to monitor withdrawals S: Patient seen and examined. Overall symptoms improving. Colmer today saying that his tremors are at a minimum He slept well REVIEW OF SYMPTOMS: Patient denies CP or SOB.Denies audio-, visual or tactile hallucinations. Denies dizziness or visual changes. Denies acute pain. Denies rhinorrhea, lacrimation, cough or sore throat. No difficulty ambulating, urinating, swallowing. Denies rash O: Vitals: 06/28/23 0913 BP: 145/91 Pulse: 66 Resp: 16 Temp: 36.2 C (97.1 F) SpO2: 96% Patient seen and examined. Alert and oriented x 3. NAD. Head: NCAT. Skin: warm, dry CNII-XII are grossly intact. And symmetrical Sensation appears to be intact in distal extremities and Gait stable. Insight and judgement are fair. Denies suicidal or homocidal ideation. Cognition intact. Denies audio, visual or tactile hallucinations. Not responding to internal stimuli, good eye contact. Recent Results (from the past 24 hour(s)) CBC auto differential Collection Time: 06/28/23 2:12 AM Result Value Ref Range Auto WBC 4.5 3.6 - 10.7 10*3/uL RBC 4.21 (L) 4.40 - 5.90 10*6/uL Hemoglobin 12.8 (L) 13.0 - 18.0 g/dL Hematocrit 37.8 (L) 40.0 - 52.0 % MCV 89.8 77.0 - 99.0 fL MCH 30.4 26.0 - 34.0 pg MCHC 33.9 30.5 - 36.0 % RDW 15.0 11.5 - 15.0 % Platelets 136 (L) 140 - 440 10*3/uL MPV 10.4 9.0 - 12.7 fL nRBC 0.0 0.0 - 2.0 /100 WBCs Neutrophils Relative 40.0 38.0 - 82.0 % Lymphocytes Relative 49.3 (H) 15.0 - 45.0 % Monocytes Relative 6.9 5.0 - 13.0 % Eosinophils Relative 2.4 0.0 - 6.0 % Basophils Relative 0.7 0.0 - 2.0 % Immature Grans % 0.7 0.0 - 2.0 % Neutrophils Absolute 1.8 1.8 - 7.5 10*3/uL Lymphocytes Absolute 2.2 1.0 - 4.3 10*3/uL Monocytes Absolute 0.3 0.0 - 0.9 10*3/uL Eosinophils Absolute 0.1 0.0 - 0.5 10*3/uL Basophils Absolute 0.0 0.0 - 0.2 10*3/uL Immature Grans Absolute 0.0 <0.1 10*3/uL IPF 5 Comprehensive metabolic panel Collection Time: 06/28/23 2:12 AM Result Value Ref Range SODIUM 135 135 - 145 mmol/L POTASSIUM 4.1 3.5 - 5.1 mmol/L CHLORIDE 107 98 - 107 mmol/L CARBON DIOXIDE 22 22 - 30 mmol/L ANION GAP 7 3 - 13 mmol/L UREA NITROGEN 4 (L) 9 - 20 mg/dL CREATININE 0.62 (L) 0.66 - 1.25 mg/dL GLUCOSE 108 (H) 70 - 100 mg/dL CALCIUM 8.7 8.4 - 10.4 mg/dL AST (SGOT) 186 (H) 15 - 46 U/L ALT 178 (H) 0 - 49 U/L ALKALINE PHOSPHATASE 102 38 - 126 U/L ALBUMIN 3.7 3.5 - 5.0 g/dL BILIRUBIN, TOTAL 0.7 0.2 - 1.3 mg/dL TOTAL PROTEIN 6.9 6.3 - 8.2 g/dL eGFR >90.0 >60.0 mL/min/1.73m*2 Assessment/Plan: 1 alcohol use disorder severe with withdrawals Day #4 of no use Ciwa is low Continue phenobarb taper Done with the detox 2 and 3 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 Hilton within a week Will sign off STONE RAMSEY MD, MD Addiction Medicine 06/28/2023 at 11:30 AM * Nevaeh Brooks MD - 06/28/2023 6:51 AM EDT Med Team Progress Note Roro Valdivia : 1985(37 y.o.) Date: June 28, 2023 Med Team: D Attending: Dr. Sue Chief Complaint: Alcohol detox Subjective: - No acute events overnight. - Currently, patient sitting at bedside. No acute complaints but did mention vivid dreams. Would like to go home with possible. Denying any pain, shortness of breath, tremors, fevers, chills. PRN meds used in last 24hrs: none Review of Systems Constitutional: Negative for chills and fever. Respiratory: Negative for shortness of breath. Cardiovascular: Negative for chest pain. Gastrointestinal: Negative for abdominal distention and abdominal pain. Musculoskeletal: Negative for arthralgias and myalgias. Neurological: Negative for tremors and seizures. Psychiatric/Behavioral: Negative for agitation, behavioral problems and confusion. Scheduled Meds:buprenorphine-naloxone, 1 Film, SubLINGual, q6h cloNIDine, 0.1 mg, Oral, q12h enoxaparin, 40 mg, SubCUTAneous, Daily folic acid, 1 mg, Oral, Daily metoprolol succinate XL, 25 mg, Oral, Daily nicotine, 1 patch, TransDERmal, Daily Followed by [START ON 08/07/2023] nicotine, 1 patch, TransDERmal, Daily Followed by [START ON 08/21/2023] nicotine, 1 patch, TransDERmal, Daily OLANZapine, 5 mg, Oral, Nightly pantoprazole, 40 mg, Oral, qAM AC PHENobarbital, 32.4 mg, Oral, Q4H Followed by PHENobarbital, 16.2 mg, Oral, Q4H risperiDONE, 0.5 mg, Oral, BID thiamine, 100 mg, Oral, Daily venlafaxine XR, 37.5 mg, Oral, Daily with breakfast Continuous Infusions: Objective: BP 112/77 Pulse 61 Temp 36.1 C (97 F) (Temporal) Resp 17 Ht 6' 1 (1.854 m) Wt 250 lb (113 kg) SpO2 98% BMI 32.98 kg/m Physical Exam Vitals reviewed. Constitutional: General: He is not in acute distress. Appearance: He is not ill-appearing. Cardiovascular: Rate and Rhythm: Normal rate and regular rhythm. Pulses: Normal pulses. Pulmonary: Effort: Pulmonary effort is normal. Breath sounds: Normal breath sounds. Abdominal: General: Abdomen is flat. Bowel sounds are normal. There is no distension. Tenderness: There is no abdominal tenderness. Musculoskeletal: General: Normal range of motion. Right lower leg: No edema. Left lower leg: No edema. Skin: General: Skin is warm and dry. Neurological: Mental Status: He is alert. Psychiatric: Mood and Affect: Mood normal. Select Labs within last 24 hours Auto WBC Date Value Ref Range Status 06/28/2023 4.5 3.6 - 10.7 10*3/uL Final Hemoglobin Date Value Ref Range Status 06/28/2023 12.8 (L) 13.0 - 18.0 g/dL Final Hematocrit Date Value Ref Range Status 06/28/2023 37.8 (L) 40.0 - 52.0 % Final Platelets Date Value Ref Range Status 06/28/2023 136 (L) 140 - 440 10*3/uL Final MCV Date Value Ref Range Status 06/28/2023 89.8 77.0 - 99.0 fL Final SODIUM Date Value Ref Range Status 06/28/2023 135 135 - 145 mmol/L Final POTASSIUM Date Value Ref Range Status 06/28/2023 4.1 3.5 - 5.1 mmol/L Final CHLORIDE Date Value Ref Range Status 06/28/2023 107 98 - 107 mmol/L Final CARBON DIOXIDE Date Value Ref Range Status 06/28/2023 22 22 - 30 mmol/L Final UREA NITROGEN Date Value Ref Range Status 06/28/2023 4 (L) 9 - 20 mg/dL Final CREATININE Date Value Ref Range Status 06/28/2023 0.62 (L) 0.66 - 1.25 mg/dL Final GLUCOSE Date Value Ref Range Status 06/28/2023 108 (H) 70 - 100 mg/dL Final CALCIUM Date Value Ref Range Status 06/28/2023 8.7 8.4 - 10.4 mg/dL Final AST (SGOT) Date Value Ref Range Status 06/28/2023 186 (H) 15 - 46 U/L Final ALT Date Value Ref Range Status 06/28/2023 178 (H) 0 - 49 U/L Final TOTAL PROTEIN Date Value Ref Range Status 06/28/2023 6.9 6.3 - 8.2 g/dL Final BILIRUBIN, TOTAL Date Value Ref Range Status 06/28/2023 0.7 0.2 - 1.3 mg/dL Final ALKALINE PHOSPHATASE Date Value Ref Range Status 06/28/2023 102 38 - 126 U/L Final No results found for: CKTOTAL, CKMB, TROPONINI No results found for: PROCAL, CHOL, TRIG, HDL, TSH, VITD25, HGBA1C, VANCOTROUGH Assessment and Plan: Alcohol Detox-clinically improving History of Alcohol withdrawal seizures Concern for benzodiazepine withdrawal Polysubstance use (methamphetamine, cocaine, opioids, previous IVDU) with drug- induced psychosis Alcohol intoxication- resolved -Ethanol level .276, last drink prior to ED presentation. Currently drinks 3 fifths of vodka daily;history of alcohol withdrawal seizures -HIV and Hep C negative -Consulted ADM, appreciate recs -on Phenobarbital 32.4 mg every 4 hours for 6 total doses with taper ordered with decreased to 16.2mg every 4 hours for final 6 doses to be completed tomorrow -CIWA with ativan PRN -risperidone 0.5mg BID -re-initiated suboxone -nicotine patch daily-ordered as sequential taper starting with 21 mg patch for 6 weeks. This can be continued as an outpatient if patient desires -Daily folate 1 mg and Thiamine 100 mg supplement. B12 wnl Transaminitis-uptrending -AST/ALT with upward trend today, AST 186, ALT 178 but not significant at the point of discontinuing phenobarbital at this time. Will continue to monitor LFTs daily. -PT/INR: 11.2/1.0 on June 23, T. Bili normal - Will get RUQ ultrasound today to evaluate persistent transaminitis Hyponatremia-resolved -Na 135 today -daily labs Depression -Patient notes issues with ongoing depression, psychiatry was consulted for evaluation and management. -No active suicidal or homicidal ideation -Per psychiatry patient was initiated on venlafaxine 37.5 mg oral daily with plan to monitor by PCPas outpatient and titrate medication as appropriate Other Problems: HAGMA, resolved -Suspect component of starvation ketosis in the setting of alcohol use. -S/P 1 L NS bolus -bicarb and AG WNL Chronic Problems and Follow Up Items: History of Tourette's -continue home Clonidine .1 mg BID, this was a home medication prior to admission GERD -Protonix daily before meals History of SVT with palpitations -home dose 50mg toprol-xl daily -will initiate on 25mg daily and up-titrate to home dose as tolerated. HR 56-84 in last 24 hrs. Will maintain at 25mg for now. Anxiety Panic Attacks -Continue Zyprexa 5 mg nightly Obesity (BMI 30 - 39) -Outpatient monitoring of diet and exercise Disposition-patient wants to go home today, in the setting of clinical improvement with no active signs of withdrawal will reach out to addiction medicine team to determine if patient is safe for discharge. - Goals of Care: FULL CODE - DVT Prophylaxis: Lovenox 40 q24hr - CrCl >30 - GI Prophylaxis: Protonix daily - Diet: General Associated attestation - Gino Sue Jr., DO - 06/28/2023 11:51 AM EDT Attending Supervising Physician's Attestation Statement for Progress Note I have discussed the care of Roro Valdivia with the medical student and/or resident. I have personally taken a history, examined the patient, and performed the associated medical decision making activities. I have reviewed & verified the attested documentation. Unless otherwise noted below, this documentation reflects the history, physical exam, and medical decision making that I performed myself. Please see below for my personal highlights or additions to the note in BOLD. OK for DC today. I spent a total of (35) minutes on the day of the visit obtaining history, discussing with consultants and care team, reviewing imaging and laboratory results, performing a physical exam and providing patient education and counseling. 7AM-5PM: Page Resident who wrote note today from Service 5PM-7AM: Page AI2 or AI3 (In house Poultry Pathologist) * Stone Ramsey MD - 06/27/2023 12:35 PM EDT Chief complaint Chief Complaint Patient presents with Drug / Alcohol Assessment Pt wants detox from xanex, crack, meth, ETOH, coke. Daily user of anything wants to get help. Seen for follow up of substance dependence and use and to monitor withdrawals S: Patient seen and examined. Overall symptoms improving. Colmer today saying that his tremors are at a minimum He slept well REVIEW OF SYMPTOMS: Patient denies CP or SOB.Denies audio-, visual or tactile hallucinations. Denies dizziness or visual changes. Denies acute pain. Denies rhinorrhea, lacrimation, cough or sore throat. No difficulty ambulating, urinating, swallowing. Denies rash O: Vitals: 06/27/23 0938 BP: 119/59 Pulse: 65 Resp: 16 Temp: 36.3 C (97.3 F) SpO2: 97% Patient seen and examined. Alert and oriented x 3. NAD. Head: NCAT. Skin: warm, dry CNII-XII are grossly intact. And symmetrical Sensation appears to be intact in distal extremities and Gait stable. Insight and judgement are fair. Denies suicidal or homocidal ideation. Cognition intact. Denies audio, visual or tactile hallucinations. Not responding to internal stimuli, good eye contact. Recent Results (from the past 24 hour(s)) CBC auto differential Collection Time: 06/27/23 2:00 AM Result Value Ref Range Auto WBC 4.9 3.6 - 10.7 10*3/uL RBC 4.36 (L) 4.40 - 5.90 10*6/uL Hemoglobin 13.0 13.0 - 18.0 g/dL Hematocrit 39.1 (L) 40.0 - 52.0 % MCV 89.7 77.0 - 99.0 fL MCH 29.8 26.0 - 34.0 pg MCHC 33.2 30.5 - 36.0 % RDW 14.6 11.5 - 15.0 % Platelets 135 (L) 140 - 440 10*3/uL MPV 10.1 9.0 - 12.7 fL nRBC 0.0 0.0 - 2.0 /100 WBCs Neutrophils Relative 42.6 38.0 - 82.0 % Lymphocytes Relative 48.2 (H) 15.0 - 45.0 % Monocytes Relative 7.0 5.0 - 13.0 % Eosinophils Relative 1.2 0.0 - 6.0 % Basophils Relative 0.6 0.0 - 2.0 % Immature Grans % 0.4 0.0 - 2.0 % Neutrophils Absolute 2.1 1.8 - 7.5 10*3/uL Lymphocytes Absolute 2.3 1.0 - 4.3 10*3/uL Monocytes Absolute 0.3 0.0 - 0.9 10*3/uL Eosinophils Absolute 0.1 0.0 - 0.5 10*3/uL Basophils Absolute 0.0 0.0 - 0.2 10*3/uL Immature Grans Absolute 0.0 <0.1 10*3/uL IPF 5 Comprehensive metabolic panel Collection Time: 06/27/23 2:00 AM Result Value Ref Range SODIUM 135 135 - 145 mmol/L POTASSIUM 4.0 3.5 - 5.1 mmol/L CHLORIDE 105 98 - 107 mmol/L CARBON DIOXIDE 22 22 - 30 mmol/L ANION GAP 8 3 - 13 mmol/L UREA NITROGEN 5 (L) 9 - 20 mg/dL CREATININE 0.72 0.66 - 1.25 mg/dL GLUCOSE 97 70 - 100 mg/dL CALCIUM 8.9 8.4 - 10.4 mg/dL AST (SGOT) 169 (H) 15 - 46 U/L ALT 165 (H) 0 - 49 U/L ALKALINE PHOSPHATASE 107 38 - 126 U/L ALBUMIN 4.0 3.5 - 5.0 g/dL BILIRUBIN, TOTAL 0.7 0.2 - 1.3 mg/dL TOTAL PROTEIN 7.0 6.3 - 8.2 g/dL eGFR >90.0 >60.0 mL/min/1.73m*2 Assessment/Plan: 1 alcohol use disorder severe with withdrawals Day #3 of no use Ciwa is low Continue phenobarb taper Needs 1-2 days of detox 2 and 3 methamphetamine and cocaine use disorder Denies any drug-induced psychosis Spread all helped him with the previous hallucinations Will continue till his discharge 4 opioid use disorder I reinitiated his Suboxone Will give him a bridge till he sees Dr. Hilton in his MAT clinic At this point the patient is stable but will still need 1 to 2 days of detox STONE RAMSEY MD, MD Addiction Medicine 06/27/2023 at 12:35 PM * Nevaeh Brooks MD - 06/27/2023 10:29 AM EDT Med Team Progress Note Roro Valdivia : 1985(37 y.o.) Date: June 27, 2023 Med Team: D Attending: Dr. Sue Chief Complaint: Alcohol detox Subjective: - No acute events overnight. -When seen, patient resting comfortably in bed. No acute complaints. Would like to go home today ifpossible. He was able to sleep overnight and is tolerating p.o. intake without difficulty. Does notfeel like he is actively going through withdrawal anymore. No thoughts of suicidal or homicidal ideation noted. Denies fevers, chills, chest pain, shortness of breath. PRN meds used in last 24hrs: No as needed medications in the last 24 hours Agree. Review of Systems Constitutional: Negative for chills and fever. Respiratory: Negative for shortness of breath. Cardiovascular: Negative for chest pain. Gastrointestinal: Negative for abdominal distention and abdominal pain. Musculoskeletal: Negative for arthralgias and myalgias. Neurological: Negative for tremors and seizures. Psychiatric/Behavioral: Negative for agitation, behavioral problems and confusion. Scheduled Meds:buprenorphine-naloxone, 1 Film, SubLINGual, q6h cloNIDine, 0.1 mg, Oral, q12h enoxaparin, 40 mg, SubCUTAneous, Daily folic acid, 1 mg, Oral, Daily metoprolol succinate XL, 25 mg, Oral, Daily nicotine, 1 patch, TransDERmal, Daily Followed by [START ON 08/07/2023] nicotine, 1 patch, TransDERmal, Daily Followed by [START ON 08/21/2023] nicotine, 1 patch, TransDERmal, Daily OLANZapine, 5 mg, Oral, Nightly pantoprazole, 40 mg, Oral, qAM AC PHENobarbital, 64.8 mg, Oral, Q4H Followed by PHENobarbital, 32.4 mg, Oral, Q4H Followed by [START ON 06/28/2023] PHENobarbital, 16.2 mg, Oral, Q4H risperiDONE, 0.5 mg, Oral, BID thiamine, 100 mg, Oral, Daily venlafaxine XR, 37.5 mg, Oral, Daily with breakfast Continuous Infusions: Objective: BP 119/59 (BP Location: Left arm, Patient Position: Lying) Pulse 65 Temp 36.3 C (97.3 F) (Temporal) Resp 16 Ht 6' 1 (1.854 m) Wt 250 lb (113 kg) SpO2 97% BMI 32.98 kg/m Physical Exam Vitals reviewed. Constitutional: General: He is not in acute distress. Appearance: He is not ill-appearing. Cardiovascular: Rate and Rhythm: Normal rate and regular rhythm. Pulses: Normal pulses. Pulmonary: Effort: Pulmonary effort is normal. Breath sounds: Normal breath sounds. Abdominal: General: Abdomen is flat. Bowel sounds are normal. There is no distension. Tenderness: There is no abdominal tenderness. Musculoskeletal: General: Normal range of motion. Right lower leg: No edema. Left lower leg: No edema. Skin: General: Skin is warm and dry. Neurological: Mental Status: He is alert. Psychiatric: Mood and Affect: Mood normal. [facility] within last 24 hours Auto WBC Date Value Ref Range Status 06/27/2023 4.9 3.6 - 10.7 10*3/uL Final Hemoglobin Date Value Ref Range Status 06/27/2023 13.0 13.0 - 18.0 g/dL Final Hematocrit Date Value Ref Range Status 06/27/2023 39.1 (L) 40.0 - 52.0 % Final Platelets Date Value Ref Range Status 06/27/2023 135 (L) 140 - 440 10*3/uL Final MCV Date Value Ref Range Status 06/27/2023 89.7 77.0 - 99.0 fL Final SODIUM Date Value Ref Range Status 06/27/2023 135 135 - 145 mmol/L Final POTASSIUM Date Value Ref Range Status 06/27/2023 4.0 3.5 - 5.1 mmol/L Final CHLORIDE Date Value Ref Range Status 06/27/2023 105 98 - 107 mmol/L Final CARBON DIOXIDE Date Value Ref Range Status 06/27/2023 22 22 - 30 mmol/L Final UREA NITROGEN Date Value Ref Range Status 06/27/2023 5 (L) 9 - 20 mg/dL Final CREATININE Date Value Ref Range Status 06/27/2023 0.72 0.66 - 1.25 mg/dL Final GLUCOSE Date Value Ref Range Status 06/27/2023 97 70 - 100 mg/dL Final CALCIUM Date Value Ref Range Status 06/27/2023 8.9 8.4 - 10.4 mg/dL Final AST (SGOT) Date Value Ref Range Status 06/27/2023 169 (H) 15 - 46 U/L Final ALT Date Value Ref Range Status 06/27/2023 165 (H) 0 - 49 U/L Final TOTAL PROTEIN Date Value Ref Range Status 06/27/2023 7.0 6.3 - 8.2 g/dL Final BILIRUBIN, TOTAL Date Value Ref Range Status 06/27/2023 0.7 0.2 - 1.3 mg/dL Final ALKALINE PHOSPHATASE Date Value Ref Range Status 06/27/2023 107 38 - 126 U/L Final No results found for: CKTOTAL, CKMB, TROPONINI No results found for: PROCAL, CHOL, TRIG, HDL, TSH, VITD25, HGBA1C, VANCOTROUGH Assessment and Plan: Alcohol Detox-clinically improving History of Alcohol withdrawal seizures Concern for benzodiazepine withdrawal Polysubstance use (methamphetamine, cocaine, opioids, previous IVDU) with drug- induced psychosis Alcohol intoxication- resolved -Ethanol level .276, last drink prior to ED presentation. Currently drinks 3 fifths of vodka daily;history of alcohol withdrawal seizures -HIV and Hep C negative -Consulted ADM, appreciate recs -on Phenobarbital 32.4 mg every 4 hours for 6 total doses with taper ordered with decreased to 16.2mg every 4 hours for final 6 doses to be completed tomorrow -CIWA with ativan PRN -risperidone 0.5mg BID -re-initiated suboxone -nicotine patch daily-ordered as sequential taper starting with 21 mg patch for 6 weeks. This can be continued as an outpatient if patient desires -Daily folate 1 mg and Thiamine 100 mg supplement. B12 wnl Transaminitis-uptrending -AST/ALT with upward trend today, AST 169, ALT 165 but not significant at the point of discontinuing phenobarbital at this time. Will continue to monitor LFTs daily. -PT/INR: 11.2/1.0 on June 23 Hyponatremia-resolved -Na 135 today -daily labs Depression -Patient notes issues with ongoing depression, psychiatry was consulted for evaluation and management. -No active suicidal or homicidal ideation -Per psychiatry patient was initiated on venlafaxine 37.5 mg oral daily with plan to monitor by PCPas outpatient and titrate medication as appropriate Other Problems: HAGMA, resolved -Suspect component of starvation ketosis in the setting of alcohol use. -S/P 1 L NS bolus -bicarb and AG WNL Chronic Problems and Follow Up Items: History of Tourette's -continue home Clonidine .1 mg BID, this was a home medication prior to admission GERD -Protonix daily before meals History of SVT with palpitations -home dose 50mg toprol-xl daily -will initiate on 25mg daily and up-titrate to home dose as tolerated. HR 56-84 in last 24 hrs. Will maintain at 25mg for now. Anxiety Panic Attacks -Continue Zyprexa 5 mg nightly Obesity (BMI 30 - 39) -Outpatient monitoring of diet and exercise Disposition-patient on to go home today, in the setting of clinical improvement with no active signs of withdrawal will reach out to addiction medicine team to determine if patient is safe for discharge. - Goals of Care: FULL CODE - DVT Prophylaxis: Lovenox 40 q24hr - CrCl >30 - GI Prophylaxis: Protonix daily - Diet: General Associated attestation - Gino Sue Jr., DO - 06/28/2023 11:50 AM EDT Attending Supervising Physician's Attestation Statement for Progress Note I have discussed the care of Roro Valdivia with the medical student and/or resident. I have personally taken a history, examined the patient, and performed the associated medical decision making activities. I have reviewed & verified the attested documentation. Unless otherwise noted below, this documentation reflects the history, physical exam, and medical decision making that I performed myself. Please see below for my personal highlights or additions to the note in BOLD. I spent a total of (35) minutes on the day of the visit obtaining history, discussing with consultants and care team, reviewing imaging and laboratory results, performing a physical exam and providing patient education and counseling. 7AM-5PM: Page Resident who wrote note today from IM Service 5PM-7AM: Page AI2 or AI3 (In house Poultry Pathologist) * Stone Ramsey MD - 06/26/2023 11:53 AM EDT Chief complaint Chief Complaint Patient presents with Drug / Alcohol Assessment Pt wants detox from xanex, crack, meth, ETOH, coke. Daily user of anything wants to get help. Seen for follow up of substance dependence and use and to monitor withdrawals S: Patient seen and examined. Overall symptoms improving. Still anxious but no hallucinations and feels more comfrotable REVIEW OF SYMPTOMS: Patient denies CP or SOB.Denies audio-, visual or tactile hallucinations. Denies dizziness or visual changes. Denies acute pain. Denies rhinorrhea, lacrimation, cough or sore throat. No difficulty ambulating, urinating, swallowing. Denies rash O: Vitals: 06/26/23 0952 BP: 135/97 Pulse: 72 Resp: 16 Temp: 36.3 C (97.3 F) SpO2: 96% Patient seen and examined. Alert and oriented x 3. NAD. Head: NCAT. Skin: warm, dry CNII-XII are grossly intact. And symmetrical Sensation appears to be intact in distal extremities and Gait stable. Insight and judgement are fair. Denies suicidal or homocidal ideation. Cognition intact. Denies audio, visual or tactile hallucinations. Not responding to internal stimuli, good eye contact. Recent Results (from the past 24 hour(s)) CBC auto differential Collection Time: 06/26/23 5:04 AM Result Value Ref Range Auto WBC 4.8 3.6 - 10.7 10*3/uL RBC 4.30 (L) 4.40 - 5.90 10*6/uL Hemoglobin 12.7 (L) 13.0 - 18.0 g/dL Hematocrit 37.9 (L) 40.0 - 52.0 % MCV 88.1 77.0 - 99.0 fL MCH 29.5 26.0 - 34.0 pg MCHC 33.5 30.5 - 36.0 % RDW 14.7 11.5 - 15.0 % Platelets 153 140 - 440 10*3/uL MPV 10.1 9.0 - 12.7 fL nRBC 0.0 0.0 - 2.0 /100 WBCs Neutrophils Relative 38.9 38.0 - 82.0 % Lymphocytes Relative 52.5 (H) 15.0 - 45.0 % Monocytes Relative 6.3 5.0 - 13.0 % Eosinophils Relative 1.3 0.0 - 6.0 % Basophils Relative 0.6 0.0 - 2.0 % Immature Grans % 0.4 0.0 - 2.0 % Neutrophils Absolute 1.9 1.8 - 7.5 10*3/uL Lymphocytes Absolute 2.5 1.0 - 4.3 10*3/uL Monocytes Absolute 0.3 0.0 - 0.9 10*3/uL Eosinophils Absolute 0.1 0.0 - 0.5 10*3/uL Basophils Absolute 0.0 0.0 - 0.2 10*3/uL Immature Grans Absolute 0.0 <0.1 10*3/uL Comprehensive metabolic panel Collection Time: 06/26/23 5:04 AM Result Value Ref Range SODIUM 134 (L) 135 - 145 mmol/L POTASSIUM 3.7 3.5 - 5.1 mmol/L CHLORIDE 103 98 - 107 mmol/L CARBON DIOXIDE 22 22 - 30 mmol/L ANION GAP 9 3 - 13 mmol/L UREA NITROGEN 7 (L) 9 - 20 mg/dL CREATININE 0.67 0.66 - 1.25 mg/dL GLUCOSE 108 (H) 70 - 100 mg/dL CALCIUM 9.0 8.4 - 10.4 mg/dL AST (SGOT) 119 (H) 15 - 46 U/L ALT 143 (H) 0 - 49 U/L ALKALINE PHOSPHATASE 104 38 - 126 U/L ALBUMIN 3.9 3.5 - 5.0 g/dL BILIRUBIN, TOTAL 1.0 0.2 - 1.3 mg/dL TOTAL PROTEIN 7.1 6.3 - 8.2 g/dL eGFR >90.0 >60.0 mL/min/1.73m*2 Assessment/Plan: 1 alcohol use disorder severe with withdrawals Day #2 of no use 0 is mild He is on phenobarbital Estimated 3 to 4 days of withdrawals 2-3 methamphetamine and cocaine use disorder severe with drug-induced psychosis resolved I started him on risperdal yesterday and has been helping 4 for opioid use disorder I reinitiated him on Suboxone 2 mg every 6 hours and will provide with a bridge till his next appointment in MAT clinic Patient is not stable due to the risk of DTs and seizures STONE RAMSEY MD, MD Addiction Medicine 06/26/2023 at 11:54 AM * Summer Gómez - 06/26/2023 11:26 AM EDT Nutrition rescreen completed. Chart reviewed. Patient to be monitored and followed by the diet copier field service technician. RALPH Everett * Maryana Sandoval MD - 06/26/2023 7:38 AM EDT Med Team Progress Note Roro Valdivia : 1985(37 y.o.) Date: June 26, 2023 Med Team: D Attending: Dr. Velasco Chief Complaint: alcohol detox Subjective: - No acute events overnight. - Currently, patient resting but easily arousable to voice. States he is feeling much better compared to yesterday in terms of physical and mental symptoms. He states he thinks he felt so bad when hecame in because he was detoxing from multiple substances and also because he states he was going psychotic. He states he was having a mental breakdown at home with severe depression and anxiety/panic attack. He states he is very careful about using the word suicide because he has been pink slipped in the past. He states while he was at home, he was feeling extremely depressed and did not want to live anymore. He states these feelings led to his polysubstance use relapse. He repeatedly clar ifies that he did not want to commit suicide or hurt himself and did not have a plan to kill himself, but wished he would not be alive anymore. States he was scared of continuing to live because he was so depressed and never felt anything happy. He states he has never experienced periods of elevated mood, decreased sleep, impulsive behavior, etc. States these symptoms are mildly improved comparedto prior to admission. Denies current SI/HI, auditory/visual hallucinations. He is agreeable to psychiatry consult today. PRN meds used in last 24hrs: ativan 1mg x1, zofran x1 Review of Systems Constitutional: Negative for chills, diaphoresis, fatigue and fever. Respiratory: Negative for cough and shortness of breath. Cardiovascular: Negative for chest pain. Gastrointestinal: Negative for abdominal pain, constipation, diarrhea, nausea and vomiting. Genitourinary: Negative for difficulty urinating. Neurological: Positive for tremors. Psychiatric/Behavioral: Positive for dysphoric mood. Negative for hallucinations and suicidal ideas. The patient is nervous/anxious. Scheduled Meds:buprenorphine-naloxone, 1 Film, SubLINGual, q6h cloNIDine, 0.1 mg, Oral, q12h enoxaparin, 40 mg, SubCUTAneous, Daily folic acid, 1 mg, Oral, Daily metoprolol succinate XL, 25 mg, Oral, Daily nicotine, 1 patch, TransDERmal, Daily Followed by [START ON 08/07/2023] nicotine, 1 patch, TransDERmal, Daily Followed by [START ON 08/21/2023] nicotine, 1 patch, TransDERmal, Daily OLANZapine, 7.5 mg, Oral, Nightly pantoprazole, 40 mg, Oral, qAM AC PHENobarbital, 64.8 mg, Oral, Q4H Followed by [START ON 06/27/2023] PHENobarbital, 32.4 mg, Oral, Q4H Followed by [START ON 06/28/2023] PHENobarbital, 16.2 mg, Oral, Q4H risperiDONE, 0.5 mg, Oral, BID thiamine, 100 mg, Oral, Daily Continuous Infusions: Objective: BP 135/97 (BP Location: Left arm, Patient Position: Sitting) Pulse 72 Temp 36.3 C (97.3 F) (Temporal) Resp 16 Ht 6' 1 (1.854 m) Wt 250 lb (113 kg) SpO2 96% BMI 32.98 kg/m Physical Exam Vitals and nursing note reviewed. Constitutional: General: He is not in acute distress. Appearance: He is obese. HENT: Mouth/Throat: Mouth: Mucous membranes are moist. Comments: No tongue fasciculations appreciated Cardiovascular: Rate and Rhythm: Normal rate and regular rhythm. Pulses: Normal pulses. Pulmonary: Effort: Pulmonary effort is normal. Breath sounds: Normal breath sounds. Abdominal: General: Bowel sounds are normal. There is no distension. Palpations: Abdomen is soft. Tenderness: There is no abdominal tenderness. Musculoskeletal: General: Normal range of motion. Right lower leg: No edema. Left lower leg: No edema. Skin: General: Skin is warm and dry. Neurological: Mental Status: He is alert and oriented to person, place, and time. Comments: Mild tremor bilateral hands Psychiatric: Comments: Dysphoric mood, denies SI/HI Select Labs within last 24 hours Auto WBC Date Value Ref Range Status 06/26/2023 4.8 3.6 - 10.7 10*3/uL Final Hemoglobin Date Value Ref Range Status 06/26/2023 12.7 (L) 13.0 - 18.0 g/dL Final Hematocrit Date Value Ref Range Status 06/26/2023 37.9 (L) 40.0 - 52.0 % Final Platelets Date Value Ref Range Status 06/26/2023 153 140 - 440 10*3/uL Final MCV Date Value Ref Range Status 06/26/2023 88.1 77.0 - 99.0 fL Final SODIUM Date Value Ref Range Status 06/26/2023 134 (L) 135 - 145 mmol/L Final POTASSIUM Date Value Ref Range Status 06/26/2023 3.7 3.5 - 5.1 mmol/L Final CHLORIDE Date Value Ref Range Status 06/26/2023 103 98 - 107 mmol/L Final CARBON DIOXIDE Date Value Ref Range Status 06/26/2023 22 22 - 30 mmol/L Final UREA NITROGEN Date Value Ref Range Status 06/26/2023 7 (L) 9 - 20 mg/dL Final CREATININE Date Value Ref Range Status 06/26/2023 0.67 0.66 - 1.25 mg/dL Final GLUCOSE Date Value Ref Range Status 06/26/2023 108 (H) 70 - 100 mg/dL Final CALCIUM Date Value Ref Range Status 06/26/2023 9.0 8.4 - 10.4 mg/dL Final AST (SGOT) Date Value Ref Range Status 06/26/2023 119 (H) 15 - 46 U/L Final ALT Date Value Ref Range Status 06/26/2023 143 (H) 0 - 49 U/L Final TOTAL PROTEIN Date Value Ref Range Status 06/26/2023 7.1 6.3 - 8.2 g/dL Final BILIRUBIN, TOTAL Date Value Ref Range Status 06/26/2023 1.0 0.2 - 1.3 mg/dL Final ALKALINE PHOSPHATASE Date Value Ref Range Status 06/26/2023 104 38 - 126 U/L Final No results found for: CKTOTAL, CKMB, TROPONINI No results found for: PROCAL, CHOL, TRIG, HDL, TSH, VITD25, HGBA1C, VANCOTROUGH Assessment and Plan: Alcohol Detox History of Alcohol withdrawal seizures Concern for benzodiazepine withdrawal Polysubstance use (methamphetamine, cocaine, opioids, previous IVDU) with drug- induced psychosis Alcohol intoxication- resolved -Ethanol level .276, last drink prior to ED presentation. Currently drinks 3 fifths of vodka daily;history of alcohol withdrawal seizures -HIV and Hep C negative -Consulted ADM, appreciate recs -on Phenobarbital 97.2 mg every 4 hours with taper ordered -CIWA with ativan PRN -risperidone 0.5mg BID -re-initiated suboxone -nicotine patch daily -Daily folate and Thiamine supplement. B12 wnl Transaminitis, likely 2/2 ongoing alcohol use - improving -AST/ALT downtrending -PT/INR: 11.2/1.0 -Continue to trend, if increases will need to change Phenobarbital. Hyponatremia -Na 134 today, was 139 yesterday -daily labs Depression -psych consult, appreciate recs Other Problems: HAGMA, resolved -Suspect component of starvation ketosis in the setting of alcohol use. -S/P 1 L NS bolus -bicarb and AG WNL Chronic Problems and Follow Up Items: History of Tourette's -continue home Clonidine .1 mg BID GERD -Protonix daily before meals History of SVT with palpitations -home dose 50mg toprol-xl daily -will initiate on 25mg daily and up-titrate to home dose as tolerated. HR 56-84 in last 24 hrs. Will maintain at 25mg for now. Anxiety Panic Attacks -Continue Zyprexa 7.5 mg nightly Obesity (BMI 30 - 39) - Goals of Care: FULL CODE - DVT Prophylaxis: Lovenox 40 q24hr - CrCl >30 - GI Prophylaxis: Protonix daily - Diet: General Associated attestation - Evans Velasco MD - 06/26/2023 1:54 PM EDT I have personally examined the patient and reviewed the case with the residents. I agree with the current plan of care including the workup, evaluation, management, and diagnosis. Care plan has been discussed. The above documentation has been reviewed and edited as needed to reflect the findings ofmy evaluation. - pt seems to be tolerating meds well, and denies s/sx of withdrawal. - he admits to depression, and believes his recent drinking was a secondary result. Pt asking for apsych consult, which has been placed. - he remains on Phenobarb taper, plus CIWA protocol, and Suboxone. Transaminitis downtrending, BP stabilizing. * Clementine Lay DO - 06/25/2023 7:02 AM EDT Med Team Progress Note Roro Valdivia : 1985(37 y.o.) Date: June 25, 2023 Med Team: Gennaro Attending: Dr. Velasco Chief Complaint: Alcohol Detox Subjective: - No acute events overnight. - Currently, patient resting in bed comfortably. He easily awakens to voice. He reports feeling better this morning; denies feeling shaky, sweating, or difficulty sleeping overnight. Denies SI/HI, auditory or visual hallucinations. Admits to ongoing anxiety, skin feeling on fire and nausea. Otherwise denies any complaints. Denies any vomiting this morning. Remains alert and oriented X3; agreeable to continue with alcohol detox this admission. PRN meds used in last 24hrs: 2 mg Ativan X2, 1 mg PO ativan X 1 per CIWA Review of Systems Constitutional: Negative for chills, diaphoresis and fever. HENT: Negative for congestion and hearing loss. Eyes: Negative for visual disturbance. Respiratory: Negative for cough and shortness of breath. Cardiovascular: Negative for chest pain, palpitations and leg swelling. Gastrointestinal: Negative for abdominal pain, constipation, diarrhea, nausea and vomiting. Genitourinary: Negative for difficulty urinating and dysuria. Musculoskeletal: Negative for arthralgias and myalgias. Skin: Negative for rash. Neurological: Negative for dizziness, tremors, seizures, weakness, light- headedness and headaches. Psychiatric/Behavioral: The patient is nervous/anxious. Scheduled Meds:enoxaparin, 40 mg, SubCUTAneous, Daily folic acid, 1 mg, Oral, Daily metoprolol succinate XL, 25 mg, Oral, Daily OLANZapine, 7.5 mg, Oral, Nightly pantoprazole, 40 mg, Oral, qAM AC PHENobarbital, 97.2 mg, Oral, q6h thiamine, 100 mg, Oral, Daily Continuous Infusions: Objective: BP 128/71 Pulse 87 Temp 36.9 C (98.4 F) (Temporal) Resp 18 SpO2 97% Physical Exam Constitutional: General: He is not in acute distress. Appearance: He is not ill-appearing. HENT: Head: Normocephalic and atraumatic. Nose: Nose normal. Mouth/Throat: Mouth: Mucous membranes are moist. Eyes: General: No scleral icterus. Conjunctiva/sclera: Conjunctivae normal. Cardiovascular: Rate and Rhythm: Normal rate and regular rhythm. Heart sounds: No murmur heard. Pulmonary: Effort: Pulmonary effort is normal. No respiratory distress. Breath sounds: Normal breath sounds. No wheezing. Abdominal: General: Abdomen is flat. Bowel sounds are normal. There is no distension. Palpations: Abdomen is soft. Tenderness: There is no abdominal tenderness. Musculoskeletal: Right lower leg: No edema. Left lower leg: No edema. Skin: General: Skin is warm. Neurological: General: No focal deficit present. Mental Status: He is alert and oriented to person, place, and time. Comments: No BUE tremors or asterixis noted Psychiatric: Mood and Affect: Mood normal. Behavior: Behavior normal. Comments: Denies SI or HI Select Labs within last 24 hours Auto WBC Date Value Ref Range Status 06/25/2023 5.0 3.6 - 10.7 10*3/uL Final Hemoglobin Date Value Ref Range Status 06/25/2023 12.6 (L) 13.0 - 18.0 g/dL Final 06/24/2023 14.7 13.0 - 18.0 g/dL Final Hematocrit Date Value Ref Range Status 06/25/2023 38.4 (L) 40.0 - 52.0 % Final Platelets Date Value Ref Range Status 06/25/2023 172 140 - 440 10*3/uL Final MCV Date Value Ref Range Status 06/25/2023 88.3 77.0 - 99.0 fL Final SODIUM Date Value Ref Range Status 06/25/2023 139 135 - 145 mmol/L Final POTASSIUM Date Value Ref Range Status 06/25/2023 4.4 3.5 - 5.1 mmol/L Final CHLORIDE Date Value Ref Range Status 06/25/2023 109 (H) 98 - 107 mmol/L Final CARBON DIOXIDE Date Value Ref Range Status 06/25/2023 19 (L) 22 - 30 mmol/L Final UREA NITROGEN Date Value Ref Range Status 06/25/2023 6 (L) 9 - 20 mg/dL Final CREATININE Date Value Ref Range Status 06/25/2023 0.69 0.66 - 1.25 mg/dL Final 06/24/2023 0.73 0.66 - 1.25 mg/dL Final GLUCOSE Date Value Ref Range Status 06/25/2023 101 (H) 70 - 100 mg/dL Final CALCIUM Date Value Ref Range Status 06/25/2023 8.1 (L) 8.4 - 10.4 mg/dL Final MAGNESIUM Date Value Ref Range Status 06/25/2023 2.0 1.6 - 2.3 mg/dL Final PHOSPHORUS Date Value Ref Range Status 06/25/2023 3.8 2.5 - 4.5 mg/dL Final AST (SGOT) Date Value Ref Range Status 06/25/2023 145 (H) 15 - 46 U/L Final ALT Date Value Ref Range Status 06/25/2023 179 (H) 0 - 49 U/L Final TOTAL PROTEIN Date Value Ref Range Status 06/25/2023 7.2 6.3 - 8.2 g/dL Final BILIRUBIN, TOTAL Date Value Ref Range Status 06/25/2023 0.8 0.2 - 1.3 mg/dL Final ALKALINE PHOSPHATASE Date Value Ref Range Status 06/25/2023 97 38 - 126 U/L Final INR Date Value Ref Range Status 06/24/2023 1.0 0.9 - 1.1 Final Comment: Recommended Anticoagulant Therapy: SEE BELOW ----- INR of 2.0 - 3.0 : - Prophylaxis of Venous Thrombosis (high-risk surgery) - Treatment of Venous Thrombosis - Treatment of Pulmonary Embolism (Includes tissue heart valves, Acute Myocardial Infarction to prevent systemic embolism, Valvular Heart Disease, and Atrial Fibrillation) ----- INR of 2.5 - 3.5 : - Mechanical Prosthetic Valves (high risk) - If oral anticoagulant therapy is used to prevent Myocardial Infarction APTT Date Value Ref Range Status 06/24/2023 24.8 20.0 - 30.5 s Final CK Date Value Ref Range Status 06/24/2023 143 30 - 170 U/L Final No results found for: PROCAL, CHOL, TRIG, HDL, TSH, VITD25, HGBA1C, VANCOTROUGH Assessment and Plan: #Alcohol intoxication #Alcohol Detox #History of Alcohol withdrawal seizures #Concern for benzodiazepine withdrawal -Consult ADM; start on Phenobarbital 97.2 mg every 6 hours and CIWA PRN -Ethanol level .276, last drink prior to ED admission. Currently drinks 3 fifths of vodka daily; history of alcohol withdrawal seizures -Recent Xanax 2 mg use yesterday however UDS negative. -Volatile panel negative; LA and CK wnl -Daily folate and Thiamine supplement. B12 wnl -Phos and Mag wnl -Acetaminophen and salicylate level negative #Transaminitis -Down trending AST 145, ALT 179. Likely related to ongoing alcohol use -Acetaminophen and salicylate level negative -Continue to trend, if increases will need to change Phenobarbital. -PT/INR: 11.2/1.0 #HAGMA, improved -LA wnl, AG down to 10. Bicarb improved to 19 -Suspect component of starvation ketosis in the setting of alcohol use. -S/P 1 L NS bolus -Continue to monitor Other Problems: #Polysubstance use #History of IVDU -Recently used methamphetamine and cocaine 5 days ago; admits to Xanax use yesterday -UDS negative -Check HIV and Hep C; previously negative Chronic Problems and Follow Up Items: #History of Tourette's -Reports he is on Clonidine .1 mg BID; will schedule this. #GERD -Protonix daily before meals #History of SVT with palpitations -Currently on 50 mg daily; start with 25 mg daily and increase to home dose as tolerated #Anxiety #Panic Attacks -Continue Zyprexa 7.5 mg nightly -TSH wnl - Goals of Care: FULL CODE - DVT Prophylaxis: Lovenox 40 q24hr - CrCl >30 - GI Prophylaxis: Protonix daily - Diet: General documented in this [id number] Plan of care note* Care Plan - Giovanna Mena RN - 06/28/2023 10:18 AM EDT The patient is Moderately Stable - Low risk of patient condition declining or worsening The patient's goals for the shift include The clinical goals for the shift include Over the shift, the patient did not make progress toward the following goals. Barriers to progression include Problem: Pain - Adult Goal: Verbalizes/displays adequate comfort level or baseline comfort level Outcome: Progressing . Recommendations to address these barriers include Problem: Safety - Adult Goal: Free from fall injury Outcome: Progressing . [id number] Miscellaneous Notes* Care Plan - Giovanna Mena RN - 06/28/2023 10:18 AM EDT The patient is Moderately Stable - Low risk of patient condition declining or worsening The patient's goals for the shift include The clinical goals for the shift include Over the shift, the patient did not make progress toward the following goals. Barriers to progression include Problem: Pain - Adult Goal: Verbalizes/displays adequate comfort level or baseline comfort level Outcome: Progressing . Recommendations to address these barriers include Problem: Safety - Adult Goal: Free from fall injury Outcome: Progressing . * Care Plan - Maria Isabel Parks RN - 06/27/2023 5:41 PM EDT Problem: Neurosensory - Adult Goal: Achieves stable or improved neurological status Outcome: Progressing Goal: Remains free of injury related to seizures activity Outcome: Progressing The patient is Moderately Stable - Low risk of patient condition declining or worsening The patient's goals for the shift include minimize withdrawal symptoms The clinical goals for the shift include not require PRN withdrawal meds Over the shift, the patient made progress toward the following goals. Tolerating scheduled meds well without experiencing withdrawal symptoms. * Care Coordination - Renetta Juarez RN - 06/26/2023 11:18 AM EDT Care Managment Initial Assessment Date: 06/26/2023 Patient Name: Roro Valdivia : 1985 Patient Information Source of Information: Patient Cognition/Language: WFL - Within Functional Limits Permission given to speak with patient claims representative/caregiver as indicated: No Confirmation of Payer with patient/family: Payer Name: [employer] [place]: No Confirmation of Primary Care Physician: No PCP Primary Caregiver: Self If assistance needed, confirmed caregiver ready, willing and able to care for patient at discharge:No Confirmed with: Living Arrangements Current Residence: House Number of Floors 1 Number of Entry Steps: Bed/Bath Levels: Facility: Facility Name: Plan to Return: Yes Lives with: Extended family members Support Systems: Parent, Family members Activities of Daily Living Ambulation: Independent Bathing/Dressing: Independent Elimination/Continence/Toileting: Independent Feeding: Independent Who Assists with Activities of Daily Living: Instrumental Activities of Daily Living Prescription Coverage: Yes Pharmacy Used: Medication Management: Independent Transportation/Shopping: Independent Transportation Mode: Car Needs Assistance with Transportation at Discharge: No (Patient drove himself to the hospital) Meal Preparation: Independent Laundry/Cleaning: Independent Finances/Bill Paying: Independent Communication: Independent Types of Care Services/Equipment Utilized Care Services: Dialysis Type: Durable Medical Equipment: Patient's Goal/Discharge Plan Patient expects to be discharged to: Home Discharge Planning Actions: Patient's Choice Rights and [employer] and Collaborative Relationships Disclosed as Indicated for Post-Acute Care: Interdisciplinary Team Engagement: Social Work Referral for: Additional Information: IA per patient. Lives with Mom. Independent ADLS/IADLS. No DME. Anticipate home at discharge. Renetta Juarez RN * Care Plan - Maria Isabel Parks RN - 06/26/2023 10:51 AM EDT The patient is Moderately Stable - Low risk of patient condition declining or worsening The patient's goals for the shift include become more clearheaded The clinical goals for the shift include avoid ETOH withdrawal symptoms Over the shift, the patient made progress toward the following goals. CIWA generally under 8, and rarely required prn meds for withdrawal symptoms. Barriers to progression include slow wean of detox meds to prevent symptoms (causing him to feel foggier/sleepier than usual). Recommendations to address these barriers include continue to follow ADM's recommendations. * Care Plan - Roma Rios RN - 06/25/2023 11:44 PM EDT Problem: Pain - Adult Goal: Verbalizes/displays adequate comfort level or baseline comfort level Outcome: Progressing Problem: Safety - Adult Goal: Free from fall injury Outcome: Progressing Problem: Anxiety Goal: LTG - Patient Stated 1 Outcome: Progressing Goal: IP Editable Goal Outcome: Progressing Goal: Objective - Identify and manage anxiety triggers Outcome: Progressing Goal: Objective - Decrease panic attacks Outcome: Progressing Goal: Objective - Reduced anxiety symptoms Outcome: Progressing Goal: Objective - Implement calming and coing strategies to reduce overall anxiety and cope with panic Outcome: Progressing The patient is Moderately Unstable - Medium risk of patient condition declining or worsening The patient's goals for the shift include Control anxiety, nausea and headaches The clinical goals for the shift include No falls this shift, no increase in CIWA documented in this [facility]05-18-2024 Plan of care note* Care Plan - Maria Isabel Parks RN - 06/27/2023 5:41 PM EDT Problem: Neurosensory - Adult Goal: Achieves stable or improved neurological status Outcome: Progressing Goal: Remains free of injury related to seizures activity Outcome: Progressing The patient is Moderately Stable - Low risk of patient condition declining or worsening The patient's goals for the shift include minimize withdrawal symptoms The clinical goals for the shift include not require PRN withdrawal meds Over the shift, the patient made progress toward the following goals. Tolerating scheduled meds well without experiencing withdrawal symptoms. [id number] Discharge instructions* Discharge Instructions* Nevaeh Brooks MD - 06/26/2023 12:32 PM EDT [facility] [address] [place] [id number] Walk in hours: Thursday-Thursday [phone], [place] [id number] Please make appointment with Dr. Hilton regarding psychiatric medication refills, you will get refills of venlafaxine and zyprexa for one month at pharmacy of choice at discharge. Further refills through your psychiatric team. Please make appointment with PCP within 1-2 weeks - would recommend outpatient ultrasound of liver for elevated liver function tests. Please call [place] or [place] for information on IOP documented in this [facility]05-17-2024 Note* Care Coordination - Renetta Juarez RN - 06/26/2023 11:18 AM EDT Care Managment Initial Assessment Date: 06/26/2023 Patient Name: Roro Valdivia : 1985 Patient Information Source of Information: Patient Cognition/Language: WFL - Within Functional Limits Permission given to speak with patient claims representative/caregiver as indicated: No Confirmation of Payer with patient/family: Payer Name: [employer] [place] : No Confirmation of Primary Care Physician: No PCP Primary Caregiver: Self If assistance needed, confirmed caregiver ready, willing and able to care for patient at discharge:No Confirmed with: Living Arrangements Current Residence: House Number of Floors 1 Number of Entry Steps: Bed/Bath Levels: Facility: Facility Name: Plan to Return: Yes Lives with: Extended family members Support Systems: Parent, Family members Activities of Daily Living Ambulation: Independent Bathing/Dressing: Independent Elimination/Continence/Toileting: Independent Feeding: Independent Who Assists with Activities of Daily Living: Instrumental Activities of Daily Living Prescription Coverage: Yes Pharmacy Used: Medication Management: Independent Transportation/Shopping: Independent Transportation Mode: Car Needs Assistance with Transportation at Discharge: No (Patient drove himself to the hospital) Meal Preparation: Independent Laundry/Cleaning: Independent Finances/Bill Paying: Independent Communication: Independent Types of Care Services/Equipment Utilized Care Services: Dialysis Type: Durable Medical Equipment: Patient's Goal/Discharge Plan Patient expects to be discharged to: Home Discharge Planning Actions: Patient's Choice Rights and [employer] and Collaborative Relationships Disclosed as Indicated for Post-Acute Care: Interdisciplinary Team Engagement: Social Work Referral for: Additional Information: IA per patient. Lives with Mom. Independent ADLS/IADLS. No DME. Anticipate home at discharge. Renetta Juarez RN [facility]05-17-2024 Note* Care Coordination - Renetta Juarez RN - 06/26/2023 11:18 AM EDT Care Managment Initial Assessment Date: 06/26/2023 Patient Name: Roro Valdivia : 1985 Patient Information Source of Information: Patient Cognition/Language: WFL - Within Functional Limits Permission given to speak with patient claims representative/caregiver as indicated: No Confirmation of Payer with patient/family: Payer Name: [place] [employer] : No Confirmation of Primary Care Physician: No PCP Primary Caregiver: Self If assistance needed, confirmed caregiver ready, willing and able to care for patient at discharge:No Confirmed with: Living Arrangements Current Residence: House Number of Floors 1 Number of Entry Steps: Bed/Bath Levels: Facility: Facility Name: Plan to Return: Yes Lives with: Extended family members Support Systems: Parent, Family members Activities of Daily Living Ambulation: Independent Bathing/Dressing: Independent Elimination/Continence/Toileting: Independent Feeding: Independent Who Assists with Activities of Daily Living: Instrumental Activities of Daily Living Prescription Coverage: Yes Pharmacy Used: Medication Management: Independent Transportation/Shopping: Independent Transportation Mode: Car Needs Assistance with Transportation at Discharge: No (Patient drove himself to the hospital) Meal Preparation: Independent Laundry/Cleaning: Independent Finances/Bill Paying: Independent Communication: Independent Types of Care Services/Equipment Utilized Care Services: Dialysis Type: Durable Medical Equipment: Patient's Goal/Discharge Plan Patient expects to be discharged to: Home Discharge Planning Actions: Patient's Choice Rights and [employer] and Collaborative Relationships Disclosed as Indicated for Post-Acute Care: Interdisciplinary Team Engagement: Social Work Referral for: Additional Information: IA per patient. Lives with Mom. Independent ADLS/IADLS. No DME. Anticipate home at discharge. Renetta Juarez RN [facility] [id number] Plan of care note* Care Plan - Maria Isabel Parks RN - 06/26/2023 10:51 AM EDT The patient is Moderately Stable - Low risk of patient condition declining or worsening The patient's goals for the shift include become more clearheaded The clinical goals for the shift include avoid ETOH withdrawal symptoms Over the shift, the patient made progress toward the following goals. CIWA generally under 8, and rarely required prn meds for withdrawal symptoms. Barriers to progression include slow wean of detox meds to prevent symptoms (causing him to feel foggier/sleepier than usual). Recommendations to address these barriers include continue to follow ADM's recommendations. [facility] [id number] Consult note* JOSÉ ANTONIO Scruggs CNP - 06/26/2023 8:56 AM EDTAssociated Order(s): IP CONSULT TO PSYCHIATRY [facility] Department of Psychiatry Nurse Practitioner Note *Please contact [employer] Psychiatry Listed in [facility] On-Call Finder Thu-Thu: From 1700 - 0800 and on Thursday & Thursday* TODAY'S DATE: 06/26/23 ADMISSION DATE: 06/24/2023 IDENTIFYING INFORMATION Name: Roro Valdivia : 1985 Reason for Consult: feelings of depression, thoughts of not wanting to live. Denies plan/intent. pt reports these feelings led to polysubstance use relapse Consulting Practitioner: Fatuma Hess APRN-[employer] Hospital Day: 2 SUBJECTIVE: CHIEF COMPLAINT: CC: Chief Complaint Patient presents with Drug / Alcohol Assessment Pt wants detox from xanex, crack, meth, ETOH, coke. Daily user of anything wants to get help. Principal Problem: Alcohol use disorder Psychiatric CC: depression For every encounter with this patient, if applicable this Provider wore appropriate PPE including but not limited to standard precautions, N95 mask, surgical mask, gown and/or protective eyewear. Chart reviewed, including notes, labs, imagining, allergies, and medications, all pertinent information discussed with medical staff, nursing, social work, and patient/family if necessary. History obtained from: Patient and Chart Review HISTORY OF PRESENT ILLNESS: HPI: Roro Valdivia is a 37 y.o., male who was hospitalized at [facility] for Alcohol use disorder on 06/24/2023. PMH of alcohol withdrawal seizures, alcohol withdrawal syndrome, panicattacks/anxiety, history of pancreatitis, polysubstance abuse, GERD, tourette's and SVT. Psychiatry consulted for depression. Pt is known to this practitioner from previous admissions. Today, pt is seen resting, pt is alert and oriented x 3, and is cooperative with interview. ReportsI had a couple of breaks over the weekend. He complains of severe depression, feels medication isnot helping, states pills do nothing, I can't ever feel happy, I don't want to continue feeling this bad. Adamantly denies suicidal ideation, intent or plan. Admits to recently buying Xanax off the street and using because it is the only thing that makes me happy. He reports he feels it is what works best for his depression, anxiety and tourette's. Feels olanzapine is only effective for his anxiety. States, I'm either depressed and afraid of living or anxious and afraid of dying. Discussed and offered voluntary inpatient admission for which pt declines. He reports he does not feel it will be helpful, encouraged to consider. Discussed dual dx IOP. Pt will consider. Pt thinks he needs to take l ess olanzapine, feels contributes to dizziness and over sedation which he correlates to losing manyjobs. Pt request to start a trial of Effexor due to pt mother taking and doing well on the medication andanaie tells him he should try for depression and anxiety. Discussed importance of compliance with medications for successful outcome and pts hx of stopping medications once discharged from hospital andnot following OP with mental health. Pt is perseverative on how many OP doctors he will need to see, feels 3 may be too many then request to be seen by neurology for his tourette's. Medication options were reviewed; Education performed on risks, benefits, side effects, expectations of treatment, importance of compliance, risks of declining treatment, as well as alternative treatments. Patient given ample time to ask questions and review any concerns. Risperidone for Tourette's Past Psychiatric History: Previous diagnoses: depression, anxiety, panic Past/Current mental health outpatient care includes: [facility] Previous psychiatric hospitalizations: yes, 2022 [facility] Previous suicide attempts: No History of self-injurious behavior:No History of violence: No Past psychiatric medications include: risperidone, Catapres, Prozac and Zoloft REVIEW OF SYSTEMS: MEDICAL REVIEW OF SYMPTOMS: Review of Systems Constitutional: Positive for activity change and fatigue. Respiratory: Negative for shortness of breath. Cardiovascular: Negative for chest pain. Gastrointestinal: Negative for abdominal pain. Musculoskeletal: Negative for gait problem. Skin: Negative for rash. Neurological: Negative for speech difficulty. Psychiatric/Behavioral: Positive for dysphoric mood. Negative for sleep disturbance and suicidal ideas. The patient is nervous/anxious. PSYCHIATRIC REVIEW OF SYMPTOMS: Sleep Changes: No Appetite Changes:No Weight Changes:No Mood: Depressed/Low Mood, Anhedonia/Loss of Interest, Worthlessness, Guilt, Hopeless, Helpless, Decreased Energy, and Decreased Concentration Anxiety: Excessive Worry, Irritability, and Panic PTSD: Denies [place]: Denies/Not Noted Psychosis: Denies/Not Noted Self-Injurious Behavior:No Suicidal Ideation:No Homicidal Ideation: No Access to Weapons: No Medications: Current Facility Administered Medications: Current Facility-Administered Medications: albuterol 108 (90 Base) MCG/ACT inhaler 2 puff, 2 puff, Inhalation, q6h PRN, Clementine Zhane Alireza, DO buprenorphine-naloxone (Suboxone) 2-0.5 MG per sublingual film 1 Film, 1 Film, SubLINGual, q6h, Daniel Ramsey MD, 1 Film at 06/26/23 0909 cloNIDine (Catapres) tablet 0.1 mg, 0.1 mg, Oral, q12h, Clementine Zhane Alireza, DO, 0.1 mg at 06/26/23 0909 enoxaparin (Lovenox) syringe 40 mg, 40 mg, SubCUTAneous, Daily, Clementine Zhane Alireza, DO, 40 mg at 06/26/23 0909 folic acid (Folvite) tablet 1 mg, 1 mg, Oral, Daily, Clementine Zhane Alireza, DO, 1 mg at 06/26/23 0909 LORazepam (Ativan) tablet 1 mg, 1 mg, Oral, q1h PRN, 1 mg at 06/25/23 1035 OR LORazepam (Ativan) injection 1 mg, 1 mg, IntraVENous, q1h PRN OR LORazepam (Ativan) tablet 2 mg, 2 mg, Oral, q1h PRN, 2 mg at 06/25/23 0056 OR LORazepam (Ativan) injection 2 mg, 2 mg, IntraVENous, q1h PRN, Clementine Zhane Alireza, DO LORazepam (Ativan) tablet 3 mg, 3 mg, Oral, q1h PRN OR LORazepam (Ativan) injection 3 mg, 3 mg,IntraVENous, q1h PRN, Clementine Zhane Alireza, DO metoprolol succinate XL (Toprol-XL) 24 hr tablet 25 mg, 25 mg, Oral, Daily, Clementine Zhane Alireza,DO, 25 mg at 06/26/23 0909 naloxone (Narcan) injection 0.4 mg, 0.4 mg, IntraVENous, q5 min PRN, Evans Velasco MD nicotine (Nicoderm, Step 1) 21 MG/24HR patch 1 patch, 1 patch, TransDERmal, Daily, 1 patch at 06/26/23 0908 FOLLOWED BY [START ON 08/07/2023] nicotine (Nicoderm, Step 2) 14 MG/24HR patch 1 patch, 1 patch, TransDERmal, Daily FOLLOWED BY [START ON 08/21/2023] nicotine (Nicoderm, Step 3) 7 MG/24HR patch 1 patch, 1 patch, TransDERmal, Daily, Glenda Prescott MD OLANZapine (ZyPREXA) tablet 5 mg, 5 mg, Oral, Nightly, Fatuma Hess, CARDIOTHORACIC ICU RN - [employer] ondansetron ODT (Zofran-ODT) disintegrating tablet 4 mg, 4 mg, Oral, q8h PRN OR ondansetron (Zofran) injection 4 mg, 4 mg, IntraVENous, q6h PRN, Clementine Lay, DO, 4 mg at 06/25/232113 pantoprazole (ProtoNix) EC tablet 40 mg, 40 mg, Oral, qAM AC, Clementine Lay, DO, 40 mg at 06/26/23 05 [COMPLETED] PHENobarbital tablet 97.2 mg, 97.2 mg, Oral, Q4H, 97.2 mg at 06/26/23 0909 FOLLOWED BY PHENobarbital tablet 64.8 mg, 64.8 mg, Oral, Q4H FOLLOWED BY [START ON 06/27/2023] PHENobarbital tablet 32.4 mg, 32.4 mg, Oral, Q4H FOLLOWED BY [START ON 06/28/2023] PHENobarbital tablet 16.2 mg, 16.2 mg, Oral, Q4H, Stone Ramsey MD polyethylene glycol (PEG) 3350 (Miralax) packet 17 g, 17 g, Oral, Daily PRN, Clementine Lay DO risperiDONE (RisperDAL) tablet 0.5 mg, 0.5 mg, Oral, BID, Stone Ramsey MD, 0.5 mg at 06/26/23 0908 thiamine (Vitamin B1) tablet 100 mg, 100 mg, Oral, Daily, Clementine Lay, DO, 100 mg at 06/26/23 0909 [START ON 06/27/2023] venlafaxine XR (Effexor XR) 24 hr capsule 37.5 mg, 37.5 mg, Oral, Daily with breakfast, JOSÉ ANTONIO Scruggs CNP Medications Prior to Admission: Current Outpatient Medications Medication Instructions albuterol 108 (90 Base) MCG/ACT inhaler 2 puffs, Inhalation, Every 6 hours PRN buprenorphine-naloxone (Suboxone) 8-2 MG SL tablet 1 tablet, SubLINGual, Daily cloNIDine (CATAPRES) 0.1 mg, Oral, 2 times daily hydrOXYzine pamoate (VISTARIL) 50 mg, Oral, Every 6 hours PRN metoprolol succinate XL (TOPROL-XL) 50 mg, Oral, Daily, Do not crush or chew. nicotine (Nicoderm CQ) 21 MG/24HR patch 1 patch, TransDERmal, Every 24 hours OLANZapine (ZYPREXA) 5 mg, Oral, Nightly omeprazole (PRILOSEC) 20 mg, Oral, Daily before breakfast, Do not crush or chew. ondansetron ODT (ZOFRAN-ODT) 4 mg, Oral, Every 8 hours PRN traZODone (DESYREL) 100 mg, Oral, Nightly Allergies: No Known Allergies History: Past Medical History: Diagnosis Date Alcohol withdrawal with inpatient treatment, uncomplicated (HCC) 03/15/2022 GERD (gastroesophageal reflux disease) History of pancreatitis 01/07/2023 Hypertension Pancreatitis Seizures ([facility]) SVT (supraventricular tachycardia) Tourette syndrome Past Surgical History: Procedure Laterality Date APPENDECTOMY Family History Problem Relation Name Age of Onset No Known Problems Mother No Known Problems Father Social History: Single, lives in [place], no family support. Has GED, unemployed. No service Social History Tobacco Use Smoking status: Every Day Packs/day: 1 Types: Cigarettes Smokeless tobacco: Never Vaping Use Vaping Use: Never used Substance Use Topics Alcohol use: Not Currently Comment: 1 liter black velvet and a case of beer per day Drug use: Yes Types: Cocaine, Methamphetamines, Oxycodone, Fentanyl, Heroin, Benzodiazepines Social Determinants of Health Tobacco Use: High Risk (01/07/2023) Patient History Smoking Tobacco Use: Every Day Smokeless Tobacco Use: Never Passive Exposure: Not on file Alcohol Use: Alcohol Misuse (06/25/2023) AUDIT-C Frequency of Alcohol Consumption: 4 or more times a week Average Number of Drinks: 10 or more Frequency of Binge Drinking: Daily or almost daily Financial Resource Strain: High Risk (11/04/2022) Overall Financial Resource Strain (CARDIA) Difficulty of Paying Living Expenses: Very hard Food Insecurity: Food Insecurity Present (11/04/2022) Hunger Vital Sign Worried About Running Out of Food in the Last Year: Often true Ran Out of Food in the Last Year: Often true Transportation Needs: Unmet Transportation Needs (11/04/2022) PRAPARE - Transportation Lack of Transportation (Medical): Yes Lack of Transportation (Non-Medical): Yes Physical Activity: Inactive (11/04/2022) Exercise Vital Sign Days of Exercise per Week: 0 days Minutes of Exercise per Session: 0 min Stress: Stress Concern Present (11/04/2022) [employer] - Occupational Stress Questionnaire Feeling of Stress : To some extent Social Connections: Socially Isolated (06/24/2023) Social Connection and Isolation Panel [NHANES] Frequency of Communication with Friends and Family: More than three times a week Frequency of Social Gatherings with Friends and Family: More than three times a week Attends [employer] Services: Never Active Member of Clubs or Organizations: No Attends Club or Organization Meetings: Never Marital Status: Never Intimate Partner Violence: Not At Risk (06/25/2023) Humiliation, Afraid, Rape, and Kick questionnaire Fear of Current or Ex-Partner: No Emotionally Abused: No Physically Abused: No Sexually Abused: No Depression: Mild depression (11/04/2022) PHQ-9 PHQ-9 Score: 7 Housing Stability: High Risk (06/24/2023) Housing Stability Vital Sign Unable to Pay for Housing in the Last Year: Yes Number of Places Lived in the Last Year: 0 Unstable Housing in the Last Year: Yes Utilities: Not on file Substance Use History: ETOH: 3/5 of vodka daily Illicit Drugs: cocaine and methamphetamine, hx of opioids and fentanyl, on Suboxone daily Nicotine/Tobacco: 1 ppd Urine Drug Screen: ETOH 0.276, Utox negative though reports using cocaine and methamphetamine OBJECTIVE: PHYSICAL EXAM: Vitals: Vitals: 06/26/23 0000 06/26/23 0203 06/26/23 0614 06/26/23 0952 BP: 112/77 131/84 135/97 BP Location: Left arm Left arm Left arm Patient Position: Sitting Pulse: 80 56 62 72 Resp: 16 16 16 Temp: 36.2 C (97.1 F) 36.2 C (97.1 F) 36.3 C (97.3 F) TempSrc: Temporal Temporal Temporal SpO2: 96% 96% 96% Weight: Height: Physical Exam: Physical Exam Vitals and nursing note reviewed. Constitutional: General: He is not in acute distress. Appearance: He is ill-appearing. HENT: Head: Normocephalic and atraumatic. Nose: Nose normal. Cardiovascular: Rate and Rhythm: Normal rate. Pulmonary: Effort: Pulmonary effort is normal. No respiratory distress. Skin: General: Skin is warm and dry. Neurological: Mental Status: He is alert and oriented to person, place, and time. Psychiatric: Attention and Perception: Attention and perception normal. Mood and Affect: Mood is anxious and depressed. Speech: Speech normal. Behavior: Behavior normal. Behavior is cooperative. Thought Content: Thought content normal. Thought content does not include suicidal ideation. Thought content does not include suicidal plan. Cognition and Memory: Cognition and memory normal. Judgment: Judgment is impulsive. Labs: I reviewed pertinent laboratory results, radiographic results, Most recent EKG, and Other Clinical Notes at the time of today's encounter. Recent Results (from the past 72 hour(s)) Comprehensive metabolic panel Collection Time: 06/24/23 8:40 PM Result Value Ref Range SODIUM 144 135 - 145 mmol/L POTASSIUM 4.3 3.5 - 5.1 mmol/L CHLORIDE 108 (H) 98 - 107 mmol/L CARBON DIOXIDE 16 (L) 22 - 30 mmol/L ANION GAP 19 (H) 3 - 13 mmol/L UREA NITROGEN 5 (L) 9 - 20 mg/dL CREATININE 0.73 0.66 - 1.25 mg/dL GLUCOSE 140 (H) 70 - 100 mg/dL CALCIUM 9.5 8.4 - 10.4 mg/dL AST (SGOT) 199 (H) 15 - 46 U/L ALT 235 (H) 0 - 49 U/L ALKALINE PHOSPHATASE 124 38 - 126 U/L ALBUMIN 5.0 3.5 - 5.0 g/dL BILIRUBIN, TOTAL 0.6 0.2 - 1.3 mg/dL TOTAL PROTEIN 8.5 (H) 6.3 - 8.2 g/dL eGFR >90.0 >60.0 mL/min/1.73m*2 CBC auto differential Collection Time: 06/24/23 8:40 PM Result Value Ref Range Auto WBC 8.9 3.6 - 10.7 10*3/uL RBC 5.00 4.40 - 5.90 10*6/uL Hemoglobin 14.7 13.0 - 18.0 g/dL Hematocrit 43.7 40.0 - 52.0 % MCV 87.4 77.0 - 99.0 fL MCH 29.4 26.0 - 34.0 pg MCHC 33.6 30.5 - 36.0 % RDW 15.0 11.5 - 15.0 % Platelets 251 140 - 440 10*3/uL MPV 9.8 9.0 - 12.7 fL nRBC 0.0 0.0 - 2.0 /100 WBCs Neutrophils Relative 36.9 (L) 38.0 - 82.0 % Lymphocytes Relative 56.2 (H) 15.0 - 45.0 % Monocytes Relative 5.7 5.0 - 13.0 % Eosinophils Relative 0.4 0.0 - 6.0 % Basophils Relative 0.6 0.0 - 2.0 % Immature Grans % 0.2 0.0 - 2.0 % Neutrophils Absolute 3.3 1.8 - 7.5 10*3/uL Lymphocytes Absolute 5.0 (H) 1.0 - 4.3 10*3/uL Monocytes Absolute 0.5 0.0 - 0.9 10*3/uL Eosinophils Absolute 0.0 0.0 - 0.5 10*3/uL Basophils Absolute 0.1 0.0 - 0.2 10*3/uL Immature Grans Absolute 0.0 <0.1 10*3/uL Ethanol Collection Time: 06/24/23 8:40 PM Result Value Ref Range ETHANOL IN SER/PLAS 0.276 (H) 0.000 - 0.010 g/dL Salicylate level Collection Time: 06/24/23 8:40 PM Result Value Ref Range SALICYLATES <1.0 <20.0 mg/dL Acetaminophen level Collection Time: 06/24/23 8:40 PM Result Value Ref Range ACETAMINOPHEN <10.0 (L) 10.0 - 30.0 ug/mL CK Collection Time: 06/24/23 8:40 PM Result Value Ref Range CK 143 30 - 170 U/L SARS-CoV-2 Antigen - Behavioral Health Use Collection Time: 06/24/23 8:43 PM Specimen: Nasal; Swab Result Value Ref Range SARS-CoV-2 Antigen Negative Negative Drug screen panel, emergency Collection Time: 06/24/23 8:50 PM Result Value Ref Range AMPHETAMINE SCREEN Negative BARBITURATES SCREEN Negative BENZODIAZEPINE SCREEN Negative COCAINE METAB. SCREEN Negative METHADONE SCREEN Negative OPIATES SCREEN Negative OXYCODONE SCREEN Negative PHENCYCLIDINE SCREEN Negative BUPRENORPHINE SCREEN Collection Time: 06/24/23 8:50 PM Result Value Ref Range BUPRENORPHINE SCREEN Negative Negative Lactic acid with reflex Collection Time: 06/24/23 11:53 PM Result Value Ref Range LACTIC ACID 1.5 0.7 - 2.0 mmol/L VOLATILE PANEL,SERUM Collection Time: 06/24/23 11:53 PM Result Value Ref Range METHANOL, SERUM None Detected Toxic > 20 mg/dL, Reporting Limit 5 mg/dL mg/dL ACETONE, SERUM None Detected Toxic > 20 Reporting Limit 5 mg/dL mg/dL ETHANOL, SERUM 0.176 Reporting Limit 0.01 g/dL g/dL (W/V) ISOPROPANOL, SERUM None Detected Toxic > 20 Reporting Limit 5 mg/dL mg/dL PROTIME/INR & PTT Collection Time: 06/24/23 11:53 PM Result Value Ref Range PROTHROMBIN TIME 11.2 9.0 - 12.0 s INR 1.0 0.9 - 1.1 APTT 24.8 20.0 - 30.5 s HIV-1 and HIV-2 Antigen-Antibody Screen Collection Time: 06/24/23 11:53 PM Result Value Ref Range HIV 1,2 COMBO ANTIGEN/ANTIBODY Nonreactive Nonreactive Hepatitis C antibody Collection Time: 06/24/23 11:53 PM Result Value Ref Range HEPATITIS C VIRUS AB Not Detected Not Detected CBC auto differential Collection Time: 06/25/23 6:12 AM Result Value Ref Range Auto WBC 5.0 3.6 - 10.7 10*3/uL RBC 4.35 (L) 4.40 - 5.90 10*6/uL Hemoglobin 12.6 (L) 13.0 - 18.0 g/dL Hematocrit 38.4 (L) 40.0 - 52.0 % MCV 88.3 77.0 - 99.0 fL MCH 29.0 26.0 - 34.0 pg MCHC 32.8 30.5 - 36.0 % RDW 14.9 11.5 - 15.0 % Platelets 172 140 - 440 10*3/uL MPV 10.0 9.0 - 12.7 fL nRBC 0.0 0.0 - 2.0 /100 WBCs Neutrophils Relative 43.9 38.0 - 82.0 % Lymphocytes Relative 46.7 (H) 15.0 - 45.0 % Monocytes Relative 7.8 5.0 - 13.0 % Eosinophils Relative 0.6 0.0 - 6.0 % Basophils Relative 0.6 0.0 - 2.0 % Immature Grans % 0.4 0.0 - 2.0 % Neutrophils Absolute 2.2 1.8 - 7.5 10*3/uL Lymphocytes Absolute 2.3 1.0 - 4.3 10*3/uL Monocytes Absolute 0.4 0.0 - 0.9 10*3/uL Eosinophils Absolute 0.0 0.0 - 0.5 10*3/uL Basophils Absolute 0.0 0.0 - 0.2 10*3/uL Immature Grans Absolute 0.0 <0.1 10*3/uL TSH Collection Time: 06/25/23 6:12 AM Result Value Ref Range THYROID STIMULATING HORMONE 1.435 0.465 - 4.680 uIU/mL Vitamin B12 Collection Time: 06/25/23 6:12 AM Result Value Ref Range VITAMIN B12 517 239 - 931 pg/mL Magnesium Collection Time: 06/25/23 6:12 AM Result Value Ref Range MAGNESIUM 2.0 1.6 - 2.3 mg/dL Phosphorus Collection Time: 06/25/23 6:12 AM Result Value Ref Range PHOSPHORUS 3.8 2.5 - 4.5 mg/dL Comprehensive metabolic panel Collection Time: 06/25/23 6:12 AM Result Value Ref Range SODIUM 139 135 - 145 mmol/L POTASSIUM 4.4 3.5 - 5.1 mmol/L CHLORIDE 109 (H) 98 - 107 mmol/L CARBON DIOXIDE 19 (L) 22 - 30 mmol/L ANION GAP 10 3 - 13 mmol/L UREA NITROGEN 6 (L) 9 - 20 mg/dL CREATININE 0.69 0.66 - 1.25 mg/dL GLUCOSE 101 (H) 70 - 100 mg/dL CALCIUM 8.1 (L) 8.4 - 10.4 mg/dL AST (SGOT) 145 (H) 15 - 46 U/L ALT 179 (H) 0 - 49 U/L ALKALINE PHOSPHATASE 97 38 - 126 U/L ALBUMIN 4.0 3.5 - 5.0 g/dL BILIRUBIN, TOTAL 0.8 0.2 - 1.3 mg/dL TOTAL PROTEIN 7.2 6.3 - 8.2 g/dL eGFR >90.0 >60.0 mL/min/1.73m*2 Hemoglobin A1c Collection Time: 06/25/23 6:12 AM Result Value Ref Range HEMOGLOBIN A1C 5.7 (H) <5.7 % ESTIMATED AVERAGE GLUCOSE 117 mg/dL CBC auto differential Collection Time: 06/26/23 5:04 AM Result Value Ref Range Auto WBC 4.8 3.6 - 10.7 10*3/uL RBC 4.30 (L) 4.40 - 5.90 10*6/uL Hemoglobin 12.7 (L) 13.0 - 18.0 g/dL Hematocrit 37.9 (L) 40.0 - 52.0 % MCV 88.1 77.0 - 99.0 fL MCH 29.5 26.0 - 34.0 pg MCHC 33.5 30.5 - 36.0 % RDW 14.7 11.5 - 15.0 % Platelets 153 140 - 440 10*3/uL MPV 10.1 9.0 - 12.7 fL nRBC 0.0 0.0 - 2.0 /100 WBCs Neutrophils Relative 38.9 38.0 - 82.0 % Lymphocytes Relative 52.5 (H) 15.0 - 45.0 % Monocytes Relative 6.3 5.0 - 13.0 % Eosinophils Relative 1.3 0.0 - 6.0 % Basophils Relative 0.6 0.0 - 2.0 % Immature Grans % 0.4 0.0 - 2.0 % Neutrophils Absolute 1.9 1.8 - 7.5 10*3/uL Lymphocytes Absolute 2.5 1.0 - 4.3 10*3/uL Monocytes Absolute 0.3 0.0 - 0.9 10*3/uL Eosinophils Absolute 0.1 0.0 - 0.5 10*3/uL Basophils Absolute 0.0 0.0 - 0.2 10*3/uL Immature Grans Absolute 0.0 <0.1 10*3/uL Comprehensive metabolic panel Collection Time: 06/26/23 5:04 AM Result Value Ref Range SODIUM 134 (L) 135 - 145 mmol/L POTASSIUM 3.7 3.5 - 5.1 mmol/L CHLORIDE 103 98 - 107 mmol/L CARBON DIOXIDE 22 22 - 30 mmol/L ANION GAP 9 3 - 13 mmol/L UREA NITROGEN 7 (L) 9 - 20 mg/dL CREATININE 0.67 0.66 - 1.25 mg/dL GLUCOSE 108 (H) 70 - 100 mg/dL CALCIUM 9.0 8.4 - 10.4 mg/dL AST (SGOT) 119 (H) 15 - 46 U/L ALT 143 (H) 0 - 49 U/L ALKALINE PHOSPHATASE 104 38 - 126 U/L ALBUMIN 3.9 3.5 - 5.0 g/dL BILIRUBIN, TOTAL 1.0 0.2 - 1.3 mg/dL TOTAL PROTEIN 7.1 6.3 - 8.2 g/dL eGFR >90.0 >60.0 mL/min/1.73m*2 Mental Status Exam: MSE: Level of consciousness: Alert Orientation: Person, Place, and Year Appearance: Disheveled ; appears stated age Gait: Did Not Observe Behavior: Cooperative Eye contact: good Motor Activity: WNL Speech: WNL Mood: Depressed/Sad Affect: Mood Congruent Thought Process: Organized Thought Content: Hopelessness/Helplessness, Guilt, and Denies Suicidal/Homicidal Ideation, Intent, or Plan Thought Perception: WNL Fund of Knowledge: appropriate for education level Attention/Concentration: WNL Cognition: WNL Memory: WNL Insight: Fair Judgement: Limited Suicide Risk Assessment Acute Factors: excessive/increased substance use, anxiety, and lack of meaning Chronic Factors: history of substance abuse and history of non-compliance Protective Factors: desire to improve condition, external support, and access to outpatient treatment Risk Assessment: Low Modifiable Factors: psychiatric medication: pt received/was offered and external support: family/friends contact for collateral information and discharge planning Motivation against self harm: does not want to , denies desire to end life Primary Support System: mother Access to Firearms: denies ASSESSMENT: Patient Active Problem List Diagnosis GERD (gastroesophageal reflux disease) Hypertension SVT (supraventricular tachycardia) (HCC) Tourette syndrome Alcohol induced acute pancreatitis without necrosis or infection Polysubstance use disorder Cocaine abuse (HCC) Elevated liver enzymes Panic disorder Alcohol withdrawal syndrome without complication (HCC) Alcohol abuse Benzodiazepine withdrawal with complication (HCC) Opioid withdrawal (HCC) Amphetamine withdrawal (HCC) Pneumonia Palpitations Other specified abnormal findings of blood chemistry Dermatitis Depression Positive 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 Pt does not meet criteria for inpatient psychiatric hospitalization. Offered voluntary psychiatric hospitalization for severe depression for which pt declines. Discussed dual dx IOP and pt willing to consider. Medications: will start venlafaxine 37.5 mg daily, pt may dc home with 30 day supply. Will decreaseolanzapine to 5 mg per complaints of dizziness and over sedation at 7.5 mg does. Labs: per primary Delirium precautions: Avoid sedating/anticholinergic medications, encourage sleep hygiene, minimizebarriers to nutrition, optimize sensory input and access to assistive devices (dentures, glasses, etc) where indicated, encourage time up in chair as able, D/c Floyd, restraints, IV lines, as able and reserve agitation PRNs for instances where patient is danger to self/others/treatment. Recommendations shared with primary team. Follow up: peripherally as able, pt provided OP resources for mental health services and feels PCP can adjust Effexor. On this day, 06/26/23 , I spent total time 65 minutes preparing to see the pt, reviewing previous notes, obtaining/reviewing separately obtained, history, test results, coordinating care with hospital staff, counseling/educating the patient/family/caregiver and face to face with the patient discussing the diagnosis, current symptom burden, medication side effects, medication change options, and importance of compliance with the treatment plan as well as documenting all relevant and pertinent clinical information in the patient's electronic record on the day of the visit. [facility] Phone: [phone] Consult note* JOSÉ ANTONIO Scruggs CNP - 06/26/2023 8:56 AM EDTAssociated Order(s): IP CONSULT TO PSYCHIATRY [facility] Department of Psychiatry Nurse Practitioner Note *Please contact [employer] Psychiatry Listed in [facility] On-Call Finder Mon-Fri: From 1700 - 0800 and on Thursday & Thursday* TODAY'S DATE: 06/26/23 ADMISSION DATE: 06/24/2023 IDENTIFYING INFORMATION Name: Roro Valdivia : 1985 Reason for Consult: feelings of depression, thoughts of not wanting to live. Denies plan/intent. pt reports these feelings led to polysubstance use relapse Consulting Practitioner: Fatuma Hess APRN-ISAEL Hospital Day: 2 SUBJECTIVE: CHIEF COMPLAINT: CC: Chief Complaint Patient presents with Drug / Alcohol Assessment Pt wants detox from xanex, crack, meth, ETOH, coke. Daily user of anything wants to get help. Principal Problem: Alcohol use disorder Psychiatric CC: depression For every encounter with this patient, if applicable this Provider wore appropriate PPE including but not limited to standard precautions, N95 mask, surgical mask, gown and/or protective eyewear. Chart reviewed, including notes, labs, imagining, allergies, and medications, all pertinent information discussed with medical staff, nursing, social work, and patient/family if necessary. History obtained from: Patient and Chart Review HISTORY OF PRESENT ILLNESS: HPI: Roro Valdivia is a 37 y.o., male who was hospitalized at [facility] for Alcohol use disorder on 06/24/2023. PMH of alcohol withdrawal seizures, alcohol withdrawal syndrome, panicattacks/anxiety, history of pancreatitis, polysubstance abuse, GERD, tourette's and SVT. Psychiatry consulted for depression. Pt is known to this practitioner from previous admissions. Today, pt is seen resting, pt is alert and oriented x 3, and is cooperative with interview. ReportsI had a couple of breaks over the weekend. He complains of severe depression, feels medication isnot helping, states pills do nothing, I can't ever feel happy, I don't want to continue feeling this bad. Adamantly denies suicidal ideation, intent or plan. Admits to recently buying Xanax off the street and using because it is the only thing that makes me happy. He reports he feels it is what works best for his depression, anxiety and tourette's. Feels olanzapine is only effective for his anxiety. States, I'm either depressed and afraid of living or anxious and afraid of dying. Discussed and offered voluntary inpatient admission for which pt declines. He reports he does not feel it will be helpful, encouraged to consider. Discussed dual dx IOP. Pt will consider. Pt thinks he needs to take l ess olanzapine, feels contributes to dizziness and over sedation which he correlates to losing manyjobs. Pt request to start a trial of Effexor due to pt mother taking and doing well on the medication andshe tells him he should try for depression and anxiety. Discussed importance of compliance with medications for successful outcome and pts hx of stopping medications once discharged from hospital andnot following OP with mental health. Pt is perseverative on how many OP doctors he will need to see, feels 3 may be too many then request to be seen by neurology for his tourette's. Medication options were reviewed; Education performed on risks, benefits, side effects, expectations of treatment, importance of compliance, risks of declining treatment, as well as alternative treatments. Patient given ample time to ask questions and review any concerns. Risperidone for Tourette's Past Psychiatric History: Previous diagnoses: depression, anxiety, panic Past/Current mental health outpatient care includes: [facility] Previous psychiatric hospitalizations: yes, 2022 [facility] Previous suicide attempts: No History of self-injurious behavior:No History of violence: No Past psychiatric medications include: risperidone, Catapres, Prozac and Zoloft REVIEW OF SYSTEMS: MEDICAL REVIEW OF SYMPTOMS: Review of Systems Constitutional: Positive for activity change and fatigue. Respiratory: Negative for shortness of breath. Cardiovascular: Negative for chest pain. Gastrointestinal: Negative for abdominal pain. Musculoskeletal: Negative for gait problem. Skin: Negative for rash. Neurological: Negative for speech difficulty. Psychiatric/Behavioral: Positive for dysphoric mood. Negative for sleep disturbance and suicidal ideas. The patient is nervous/anxious. PSYCHIATRIC REVIEW OF SYMPTOMS: Sleep Changes: No Appetite Changes:No Weight Changes:No Mood: Depressed/Low Mood, Anhedonia/Loss of Interest, Worthlessness, Guilt, Hopeless, Helpless, Decreased Energy, and Decreased Concentration Anxiety: Excessive Worry, Irritability, and Panic PTSD: Denies Dontrell: Denies/Not Noted Psychosis: Denies/Not Noted Self-Injurious Behavior:No Suicidal Ideation:No Homicidal Ideation: No Access to Weapons: No Medications: Current Facility Administered Medications: Current Facility-Administered Medications: albuterol 108 (90 Base) MCG/ACT inhaler 2 puff, 2 puff, Inhalation, q6h PRN, Clementine Zhane Alireza, DO buprenorphine-naloxone (Suboxone) 2-0.5 MG per sublingual film 1 Film, 1 Film, SubLINGual, q6h, Daniel Ramsey MD, 1 Film at 06/26/23 0909 cloNIDine (Catapres) tablet 0.1 mg, 0.1 mg, Oral, q12h, Clementine Zhane Alireza, DO, 0.1 mg at 06/26/23 0909 enoxaparin (Lovenox) syringe 40 mg, 40 mg, SubCUTAneous, Daily, Clementine Zhane Alireza, DO, 40 mg at 06/26/23 0909 folic acid (Folvite) tablet 1 mg, 1 mg, Oral, Daily, Clementine Zhane Alireza, DO, 1 mg at 06/26/23 0909 LORazepam (Ativan) tablet 1 mg, 1 mg, Oral, q1h PRN, 1 mg at 06/25/23 1035 OR LORazepam (Ativan) injection 1 mg, 1 mg, IntraVENous, q1h PRN OR LORazepam (Ativan) tablet 2 mg, 2 mg, Oral, q1h PRN, 2 mg at 06/25/23 0056 OR LORazepam (Ativan) injection 2 mg, 2 mg, IntraVENous, q1h PRN, Clementine Zhane Alireza, DO LORazepam (Ativan) tablet 3 mg, 3 mg, Oral, q1h PRN OR LORazepam (Ativan) injection 3 mg, 3 mg,IntraVENous, q1h PRN, Clementine Zhane Alireza, DO metoprolol succinate XL (Toprol-XL) 24 hr tablet 25 mg, 25 mg, Oral, Daily, Clementine Zhane Alireza,DO, 25 mg at 06/26/23 0909 naloxone (Narcan) injection 0.4 mg, 0.4 mg, IntraVENous, q5 min PRN, Evans Velasco MD nicotine (Nicoderm, Step 1) 21 MG/24HR patch 1 patch, 1 patch, TransDERmal, Daily, 1 patch at 06/26/23 0908 FOLLOWED BY [START ON 08/07/2023] nicotine (Nicoderm, Step 2) 14 MG/24HR patch 1 patch, 1 patch, TransDERmal, Daily FOLLOWED BY [START ON 08/21/2023] nicotine (Nicoderm, Step 3) 7 MG/24HR patch 1 patch, 1 patch, TransDERmal, Daily, Glenda Prescott MD OLANZapine (ZyPREXA) tablet 5 mg, 5 mg, Oral, Nightly, Fatuma Hess, CARDIOTHORACIC ICU RN - [employer] ondansetron ODT (Zofran-ODT) disintegrating tablet 4 mg, 4 mg, Oral, q8h PRN OR ondansetron (Zofran) injection 4 mg, 4 mg, IntraVENous, q6h PRN, Clementine Lay DO, 4 mg at 06/25/232113 pantoprazole (ProtoNix) EC tablet 40 mg, 40 mg, Oral, qAM AC, Clementine Lay DO, 40 mg at 06/26/23 0522 [COMPLETED] PHENobarbital tablet 97.2 mg, 97.2 mg, Oral, Q4H, 97.2 mg at 06/26/23 0909 FOLLOWED BY PHENobarbital tablet 64.8 mg, 64.8 mg, Oral, Q4H FOLLOWED BY [START ON 06/27/2023] PHENobarbital tablet 32.4 mg, 32.4 mg, Oral, Q4H FOLLOWED BY [START ON 06/28/2023] PHENobarbital tablet 16.2 mg, 16.2 mg, Oral, Q4H, Stone Ramsey MD polyethylene glycol (PEG) 3350 (Miralax) packet 17 g, 17 g, Oral, Daily PRN, Clementine Lay DO risperiDONE (RisperDAL) tablet 0.5 mg, 0.5 mg, Oral, BID, Stone Ramsey MD, 0.5 mg at 06/26/23 0908 thiamine (Vitamin B1) tablet 100 mg, 100 mg, Oral, Daily, Clementine Lay, DO, 100 mg at 06/26/23 0909 [START ON 06/27/2023] venlafaxine XR (Effexor XR) 24 hr capsule 37.5 mg, 37.5 mg, Oral, Daily with breakfast, Fatuma Hess APRN - [facility]EL Medications Prior to Admission: Current Outpatient Medications Medication Instructions albuterol 108 (90 Base) MCG/ACT inhaler 2 puffs, Inhalation, Every 6 hours PRN buprenorphine-naloxone (Suboxone) 8-2 MG SL tablet 1 tablet, SubLINGual, Daily cloNIDine (CATAPRES) 0.1 mg, Oral, 2 times daily hydrOXYzine pamoate (VISTARIL) 50 mg, Oral, Every 6 hours PRN metoprolol succinate XL (TOPROL-XL) 50 mg, Oral, Daily, Do not crush or chew. nicotine (Nicoderm CQ) 21 MG/24HR patch 1 patch, TransDERmal, Every 24 hours OLANZapine (ZYPREXA) 5 mg, Oral, Nightly omeprazole (PRILOSEC) 20 mg, Oral, Daily before breakfast, Do not crush or chew. ondansetron ODT (ZOFRAN-ODT) 4 mg, Oral, Every 8 hours PRN traZODone (DESYREL) 100 mg, Oral, Nightly Allergies: No Known Allergies History: Past Medical History: Diagnosis Date Alcohol withdrawal with inpatient treatment, uncomplicated (HCC) 03/15/2022 GERD (gastroesophageal reflux disease) History of pancreatitis 01/07/2023 Hypertension Pancreatitis Seizures ([facility]) SVT (supraventricular tachycardia) Tourette syndrome Past Surgical History: Procedure Laterality Date APPENDECTOMY Family History Problem Relation Name Age of Onset No Known Problems Mother No Known Problems Father Social History: Single, lives in [place], no family support. Has GED, unemployed. No service Social History Tobacco Use Smoking status: Every Day Packs/day: 1 Types: Cigarettes Smokeless tobacco: Never Vaping Use Vaping Use: Never used Substance Use Topics Alcohol use: Not Currently Comment: 1 liter black velvet and a case of beer per day Drug use: Yes Types: Cocaine, Methamphetamines, Oxycodone, Fentanyl, Heroin, Benzodiazepines Social Determinants of Health Tobacco Use: High Risk (01/07/2023) Patient History Smoking Tobacco Use: Every Day Smokeless Tobacco Use: Never Passive Exposure: Not on file Alcohol Use: Alcohol Misuse (06/25/2023) AUDIT-C Frequency of Alcohol Consumption: 4 or more times a week Average Number of Drinks: 10 or more Frequency of Binge Drinking: Daily or almost daily Financial Resource Strain: High Risk (11/04/2022) Overall Financial Resource Strain (CARDIA) Difficulty of Paying Living Expenses: Very hard Food Insecurity: Food Insecurity Present (11/04/2022) Hunger Vital Sign Worried About Running Out of Food in the Last Year: Often true Ran Out of Food in the Last Year: Often true Transportation Needs: Unmet Transportation Needs (11/04/2022) PRAPARE - Transportation Lack of Transportation (Medical): Yes Lack of Transportation (Non-Medical): Yes Physical Activity: Inactive (11/04/2022) Exercise Vital Sign Days of Exercise per Week: 0 days Minutes of Exercise per Session: 0 min Stress: Stress Concern Present (11/04/2022) [employer] - Occupational Stress Questionnaire Feeling of Stress : To some extent Social Connections: Socially Isolated (06/24/2023) Social Connection and Isolation Panel [NHANES] Frequency of Communication with Friends and Family: More than three times a week Frequency of Social Gatherings with Friends and Family: More than three times a week Attends [employer] Services: Never Active Member of Clubs or Organizations: No Attends Club or Organization Meetings: Never Marital Status: Never Intimate Partner Violence: Not At Risk (06/25/2023) Humiliation, Afraid, Rape, and Kick questionnaire Fear of Current or Ex-Partner: No Emotionally Abused: No Physically Abused: No Sexually Abused: No Depression: Mild depression (11/04/2022) PHQ-9 PHQ-9 Score: 7 Housing Stability: High Risk (06/24/2023) Housing Stability Vital Sign Unable to Pay for Housing in the Last Year: Yes Number of Places Lived in the Last Year: 0 Unstable Housing in the Last Year: Yes Utilities: Not on file Substance Use History: ETOH: 3/5 of vodka daily Illicit Drugs: cocaine and methamphetamine, hx of opioids and fentanyl, on Suboxone daily Nicotine/Tobacco: 1 ppd Urine Drug Screen: ETOH 0.276, Utox negative though reports using cocaine and methamphetamine OBJECTIVE: PHYSICAL EXAM: Vitals: Vitals: 06/26/23 0000 06/26/23 0203 06/26/23 0614 06/26/23 0952 BP: 112/77 131/84 135/97 BP Location: Left arm Left arm Left arm Patient Position: Sitting Pulse: 80 56 62 72 Resp: 16 16 Temp: 36.2 C (97.1 F) 36.2 C (97.1 F) 36.3 C (97.3 F) TempSrc: Temporal Temporal Temporal SpO2: 96% 96% 96% Weight: Height: Physical Exam: Physical Exam Vitals and nursing note reviewed. Constitutional: General: He is not in acute distress. Appearance: He is ill-appearing. HENT: Head: Normocephalic and atraumatic. Nose: Nose normal. Cardiovascular: Rate and Rhythm: Normal rate. Pulmonary: Effort: Pulmonary effort is normal. No respiratory distress. Skin: General: Skin is warm and dry. Neurological: Mental Status: He is alert and oriented to person, place, and time. Psychiatric: Attention and Perception: Attention and perception normal. Mood and Affect: Mood is anxious and depressed. Speech: Speech normal. Behavior: Behavior normal. Behavior is cooperative. Thought Content: Thought content normal. Thought content does not include suicidal ideation. Thought content does not include suicidal plan. Cognition and Memory: Cognition and memory normal. Judgment: Judgment is impulsive. Labs: I reviewed pertinent laboratory results, radiographic results, Most recent EKG, and Other Clinical Notes at the time of today's encounter. Recent Results (from the past 72 hour(s)) Comprehensive metabolic panel Collection Time: 06/24/23 8:40 PM Result Value Ref Range SODIUM 144 135 - 145 mmol/L POTASSIUM 4.3 3.5 - 5.1 mmol/L CHLORIDE 108 (H) 98 - 107 mmol/L CARBON DIOXIDE 16 (L) 22 - 30 mmol/L ANION GAP 19 (H) 3 - 13 mmol/L UREA NITROGEN 5 (L) 9 - 20 mg/dL CREATININE 0.73 0.66 - 1.25 mg/dL GLUCOSE 140 (H) 70 - 100 mg/dL CALCIUM 9.5 8.4 - 10.4 mg/dL AST (SGOT) 199 (H) 15 - 46 U/L ALT 235 (H) 0 - 49 U/L ALKALINE PHOSPHATASE 124 38 - 126 U/L ALBUMIN 5.0 3.5 - 5.0 g/dL BILIRUBIN, TOTAL 0.6 0.2 - 1.3 mg/dL TOTAL PROTEIN 8.5 (H) 6.3 - 8.2 g/dL eGFR >90.0 >60.0 mL/min/1.73m*2 CBC auto differential Collection Time: 06/24/23 8:40 PM Result Value Ref Range Auto WBC 8.9 3.6 - 10.7 10*3/uL RBC 5.00 4.40 - 5.90 10*6/uL Hemoglobin 14.7 13.0 - 18.0 g/dL Hematocrit 43.7 40.0 - 52.0 % MCV 87.4 77.0 - 99.0 fL MCH 29.4 26.0 - 34.0 pg MCHC 33.6 30.5 - 36.0 % RDW 15.0 11.5 - 15.0 % Platelets 251 140 - 440 10*3/uL MPV 9.8 9.0 - 12.7 fL nRBC 0.0 0.0 - 2.0 /100 WBCs Neutrophils Relative 36.9 (L) 38.0 - 82.0 % Lymphocytes Relative 56.2 (H) 15.0 - 45.0 % Monocytes Relative 5.7 5.0 - 13.0 % Eosinophils Relative 0.4 0.0 - 6.0 % Basophils Relative 0.6 0.0 - 2.0 % Immature Grans % 0.2 0.0 - 2.0 % Neutrophils Absolute 3.3 1.8 - 7.5 10*3/uL Lymphocytes Absolute 5.0 (H) 1.0 - 4.3 10*3/uL Monocytes Absolute 0.5 0.0 - 0.9 10*3/uL Eosinophils Absolute 0.0 0.0 - 0.5 10*3/uL Basophils Absolute 0.1 0.0 - 0.2 10*3/uL Immature Grans Absolute 0.0 <0.1 10*3/uL Ethanol Collection Time: 06/24/23 8:40 PM Result Value Ref Range ETHANOL IN SER/PLAS 0.276 (H) 0.000 - 0.010 g/dL Salicylate level Collection Time: 06/24/23 8:40 PM Result Value Ref Range SALICYLATES <1.0 <20.0 mg/dL Acetaminophen level Collection Time: 06/24/23 8:40 PM Result Value Ref Range ACETAMINOPHEN <10.0 (L) 10.0 - 30.0 ug/mL CK Collection Time: 06/24/23 8:40 PM Result Value Ref Range CK 143 30 - 170 U/L SARS-CoV-2 Antigen - Behavioral Health Use Collection Time: 06/24/23 8:43 PM Specimen: Nasal; Swab Result Value Ref Range SARS-CoV-2 Antigen Negative Negative Drug screen panel, emergency Collection Time: 06/24/23 8:50 PM Result Value Ref Range AMPHETAMINE SCREEN Negative BARBITURATES SCREEN Negative BENZODIAZEPINE SCREEN Negative COCAINE METAB. SCREEN Negative METHADONE SCREEN Negative OPIATES SCREEN Negative OXYCODONE SCREEN Negative PHENCYCLIDINE SCREEN Negative BUPRENORPHINE SCREEN Collection Time: 06/24/23 8:50 PM Result Value Ref Range BUPRENORPHINE SCREEN Negative Negative Lactic acid with reflex Collection Time: 06/24/23 11:53 PM Result Value Ref Range LACTIC ACID 1.5 0.7 - 2.0 mmol/L VOLATILE PANEL,SERUM Collection Time: 06/24/23 11:53 PM Result Value Ref Range METHANOL, SERUM None Detected Toxic > 20 mg/dL, Reporting Limit 5 mg/dL mg/dL ACETONE, SERUM None Detected Toxic > 20 Reporting Limit 5 mg/dL mg/dL ETHANOL, SERUM 0.176 Reporting Limit 0.01 g/dL g/dL (W/V) ISOPROPANOL, SERUM None Detected Toxic > 20 Reporting Limit 5 mg/dL mg/dL PROTIME/INR & PTT Collection Time: 06/24/23 11:53 PM Result Value Ref Range PROTHROMBIN TIME 11.2 9.0 - 12.0 s INR 1.0 0.9 - 1.1 APTT 24.8 20.0 - 30.5 s HIV-1 and HIV-2 Antigen-Antibody Screen Collection Time: 06/24/23 11:53 PM Result Value Ref Range HIV 1,2 COMBO ANTIGEN/ANTIBODY Nonreactive Nonreactive Hepatitis C antibody Collection Time: 06/24/23 11:53 PM Result Value Ref Range HEPATITIS C VIRUS AB Not Detected Not Detected CBC auto differential Collection Time: 06/25/23 6:12 AM Result Value Ref Range Auto WBC 5.0 3.6 - 10.7 10*3/uL RBC 4.35 (L) 4.40 - 5.90 10*6/uL Hemoglobin 12.6 (L) 13.0 - 18.0 g/dL Hematocrit 38.4 (L) 40.0 - 52.0 % MCV 88.3 77.0 - 99.0 fL MCH 29.0 26.0 - 34.0 pg MCHC 32.8 30.5 - 36.0 % RDW 14.9 11.5 - 15.0 % Platelets 172 140 - 440 10*3/uL MPV 10.0 9.0 - 12.7 fL nRBC 0.0 0.0 - 2.0 /100 WBCs Neutrophils Relative 43.9 38.0 - 82.0 % Lymphocytes Relative 46.7 (H) 15.0 - 45.0 % Monocytes Relative 7.8 5.0 - 13.0 % Eosinophils Relative 0.6 0.0 - 6.0 % Basophils Relative 0.6 0.0 - 2.0 % Immature Grans % 0.4 0.0 - 2.0 % Neutrophils Absolute 2.2 1.8 - 7.5 10*3/uL Lymphocytes Absolute 2.3 1.0 - 4.3 10*3/uL Monocytes Absolute 0.4 0.0 - 0.9 10*3/uL Eosinophils Absolute 0.0 0.0 - 0.5 10*3/uL Basophils Absolute 0.0 0.0 - 0.2 10*3/uL Immature Grans Absolute 0.0 <0.1 10*3/uL TSH Collection Time: 06/25/23 6:12 AM Result Value Ref Range THYROID STIMULATING HORMONE 1.435 0.465 - 4.680 uIU/mL Vitamin B12 Collection Time: 06/25/23 6:12 AM Result Value Ref Range VITAMIN B12 517 239 - 931 pg/mL Magnesium Collection Time: 06/25/23 6:12 AM Result Value Ref Range MAGNESIUM 2.0 1.6 - 2.3 mg/dL Phosphorus Collection Time: 06/25/23 6:12 AM Result Value Ref Range PHOSPHORUS 3.8 2.5 - 4.5 mg/dL Comprehensive metabolic panel Collection Time: 06/25/23 6:12 AM Result Value Ref Range SODIUM 139 135 - 145 mmol/L POTASSIUM 4.4 3.5 - 5.1 mmol/L CHLORIDE 109 (H) 98 - 107 mmol/L CARBON DIOXIDE 19 (L) 22 - 30 mmol/L ANION GAP 10 3 - 13 mmol/L UREA NITROGEN 6 (L) 9 - 20 mg/dL CREATININE 0.69 0.66 - 1.25 mg/dL GLUCOSE 101 (H) 70 - 100 mg/dL CALCIUM 8.1 (L) 8.4 - 10.4 mg/dL AST (SGOT) 145 (H) 15 - 46 U/L ALT 179 (H) 0 - 49 U/L ALKALINE PHOSPHATASE 97 38 - 126 U/L ALBUMIN 4.0 3.5 - 5.0 g/dL BILIRUBIN, TOTAL 0.8 0.2 - 1.3 mg/dL TOTAL PROTEIN 7.2 6.3 - 8.2 g/dL eGFR >90.0 >60.0 mL/min/1.73m*2 Hemoglobin A1c Collection Time: 06/25/23 6:12 AM Result Value Ref Range HEMOGLOBIN A1C 5.7 (H) <5.7 % ESTIMATED AVERAGE GLUCOSE 117 mg/dL CBC auto differential Collection Time: 06/26/23 5:04 AM Result Value Ref Range Auto WBC 4.8 3.6 - 10.7 10*3/uL RBC 4.30 (L) 4.40 - 5.90 10*6/uL Hemoglobin 12.7 (L) 13.0 - 18.0 g/dL Hematocrit 37.9 (L) 40.0 - 52.0 % MCV 88.1 77.0 - 99.0 fL MCH 29.5 26.0 - 34.0 pg MCHC 33.5 30.5 - 36.0 % RDW 14.7 11.5 - 15.0 % Platelets 153 140 - 440 10*3/uL MPV 10.1 9.0 - 12.7 fL nRBC 0.0 0.0 - 2.0 /100 WBCs Neutrophils Relative 38.9 38.0 - 82.0 % Lymphocytes Relative 52.5 (H) 15.0 - 45.0 % Monocytes Relative 6.3 5.0 - 13.0 % Eosinophils Relative 1.3 0.0 - 6.0 % Basophils Relative 0.6 0.0 - 2.0 % Immature Grans % 0.4 0.0 - 2.0 % Neutrophils Absolute 1.9 1.8 - 7.5 10*3/uL Lymphocytes Absolute 2.5 1.0 - 4.3 10*3/uL Monocytes Absolute 0.3 0.0 - 0.9 10*3/uL Eosinophils Absolute 0.1 0.0 - 0.5 10*3/uL Basophils Absolute 0.0 0.0 - 0.2 10*3/uL Immature Grans Absolute 0.0 <0.1 10*3/uL Comprehensive metabolic panel Collection Time: 06/26/23 5:04 AM Result Value Ref Range SODIUM 134 (L) 135 - 145 mmol/L POTASSIUM 3.7 3.5 - 5.1 mmol/L CHLORIDE 103 98 - 107 mmol/L CARBON DIOXIDE 22 22 - 30 mmol/L ANION GAP 9 3 - 13 mmol/L UREA NITROGEN 7 (L) 9 - 20 mg/dL CREATININE 0.67 0.66 - 1.25 mg/dL GLUCOSE 108 (H) 70 - 100 mg/dL CALCIUM 9.0 8.4 - 10.4 mg/dL AST (SGOT) 119 (H) 15 - 46 U/L ALT 143 (H) 0 - 49 U/L ALKALINE PHOSPHATASE 104 38 - 126 U/L ALBUMIN 3.9 3.5 - 5.0 g/dL BILIRUBIN, TOTAL 1.0 0.2 - 1.3 mg/dL TOTAL PROTEIN 7.1 6.3 - 8.2 g/dL eGFR >90.0 >60.0 mL/min/1.73m*2 Mental Status Exam: MSE: Level of consciousness: Alert Orientation: Person, Place, and Year Appearance: Disheveled ; appears stated age Gait: Did Not Observe Behavior: Cooperative Eye contact: good Motor Activity: WNL Speech: WNL Mood: Depressed/Sad Affect: Mood Congruent Thought Process: Organized Thought Content: Hopelessness/Helplessness, Guilt, and Denies Suicidal/Homicidal Ideation, Intent, or Plan Thought Perception: WNL Fund of Knowledge: appropriate for education level Attention/Concentration: WNL Cognition: WNL Memory: WNL Insight: Fair Judgement: Limited Suicide Risk Assessment Acute Factors: excessive/increased substance use, anxiety, and lack of meaning Chronic Factors: history of substance abuse and history of non-compliance Protective Factors: desire to improve condition, external support, and access to outpatient treatment Risk Assessment: Low Modifiable Factors: psychiatric medication: pt received/was offered and external support: family/friends contact for collateral information and discharge planning Motivation against self harm: does not want to , denies desire to end life Primary Support System: mother Access to Firearms: denies ASSESSMENT: Patient Active Problem List Diagnosis GERD (gastroesophageal reflux disease) Hypertension SVT (supraventricular tachycardia) (HCC) Tourette syndrome Alcohol induced acute pancreatitis without necrosis or infection Polysubstance use disorder Cocaine abuse (HCC) Elevated liver enzymes Panic disorder Alcohol withdrawal syndrome without complication (HCC) Alcohol abuse Benzodiazepine withdrawal with complication (HCC) Opioid withdrawal (HCC) Amphetamine withdrawal (HCC) Pneumonia Palpitations Other specified abnormal findings of blood chemistry Dermatitis Depression Positive 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 Pt does not meet criteria for inpatient psychiatric hospitalization. Offered voluntary psychiatric hospitalization for severe depression for which pt declines. Discussed dual dx IOP and pt willing to consider. Medications: will start venlafaxine 37.5 mg daily, pt may dc home with 30 day supply. Will decreaseolanzapine to 5 mg per complaints of dizziness and over sedation at 7.5 mg does. Labs: per primary Delirium precautions: Avoid sedating/anticholinergic medications, encourage sleep hygiene, minimizebarriers to nutrition, optimize sensory input and access to assistive devices (dentures, glasses, etc) where indicated, encourage time up in chair as able, D/c Floyd, restraints, IV lines, as able and reserve agitation PRNs for instances where patient is danger to self/others/treatment. Recommendations shared with primary team. Follow up: peripherally as able, pt provided OP resources for mental health services and feels PCP can adjust Effexor. On this day, 06/26/23 , I spent total time 65 minutes preparing to see the pt, reviewing previous notes, obtaining/reviewing separately obtained, history, test results, coordinating care with hospital staff, counseling/educating the patient/family/caregiver and face to face with the patient discussing the diagnosis, current symptom burden, medication side effects, medication change options, and importance of compliance with the treatment plan as well as documenting all relevant and pertinent clinical information in the patient's electronic record on the day of the visit. * Stone Ramsey MD - 06/25/2023 1:32 PM EDTAssociated Order(s): IP CONSULT TO ADDICTION MEDICINE [facility] Consult service H&P Admit Date: 06/24/2023 Primary Care Physician: No primary care provider on file. ] Chief Complaint Patient presents with Drug / Alcohol Assessment Pt wants detox from xanex, crack, meth, ETOH, coke. Daily user of anything wants to get help. Substance dependence disorder History of Present Illness Roro Valdivia is a 37 y.o. year old male new to addiction medicine department as he used to be a Suboxone patient of Dr. Hilton The patient missed his appointment 2 weeks ago ran out of Suboxone and he relapsed on methamphetamine and cocaine He still going through withdrawals from the Suboxone He also continues to drink around 3/5 of vodka daily Patient denies use of cocaine and methamphetamine and alcohol was yesterday The patient was on 8 mg of Suboxone daily as mentioned above he has not taking it for the last 2 weeks Patient started drinking as a teenager dropped from high school due to alcohol use She started experiencing with opioid pain pills then progressed to fentanyl Has been using cocaine and methamphetamine sporadically since then until Patient has a history of IV drug use Has a history of blackouts related to substance use Denies any history of withdrawal seizures Has history of DTs Has many history of overdoses Has legal consequences due to substance use Upon admission his alcohol level was 0.276 his urine drug screen was negative even though that he admits that he used methamphetamine and cocaine His buprenorphine level was negative as well Patient is aware about precipitated withdrawal and if we started him on the buprenorphine while he has opioid in his system he might go into precipitated withdrawal He still insisted that he did not use opiates iv drug use Patient states that he has been seeing yesterday and the day before visual and auditory hallucinations and he was paranoid but it feels better today Substance Use Disorder Criteria 1. Taking substance in larger amounts and/or for longer than intended [x] 2. Wanting to cut down or quit substance use but not being able to [x] 3. Spending a lot of time obtaining the substance [x] 4. Craving or a strong desire to use substance [x] 5. Repeatedly doesn't carry out major obligations due to substance use [x] 6. Using despite recurring social or interpersonal problems caused by substance use [x] 7. Reducing social, occupational, or recreational activities due to substance use [x] 8. Recurrent use of substance in physically hazardous situations [x] 9. Consistent use of substance despite recurrent physical or psychological difficulties [x] 10. Tolerance (increased amounts to achieve intoxication or diminished effect) [x] 11. Withdrawal syndrome or the substance is used to avoid withdrawal [x] 2-3 = mild; 4-5 = moderate; 6 or >6 = severe substance use disorder Remaining History Past Medical History: Diagnosis Date Alcohol withdrawal with inpatient treatment, uncomplicated (HCC) 03/15/2022 GERD (gastroesophageal reflux disease) History of pancreatitis 01/07/2023 Hypertension Pancreatitis Seizures (HCC) SVT (supraventricular tachycardia) Tourette syndrome Past Surgical History: Procedure Laterality Date APPENDECTOMY Family History Problem Relation Name Age of Onset No Known Problems Mother No Known Problems Father Social History Socioeconomic History Marital status: Single Spouse name: Not on file Number of children: Not on file Years of education: Not on file Highest education level: Not on file Occupational History Not on file Tobacco Use Smoking status: Every Day Packs/day: 1 Types: Cigarettes Smokeless tobacco: Never Vaping Use Vaping Use: Never used Substance and Sexual Activity Alcohol use: Not Currently Comment: 1 liter black velvet and a case of beer per day Drug use: Yes Types: Cocaine, Methamphetamines, Oxycodone, Fentanyl, Heroin, Benzodiazepines Sexual activity: Not Currently Other Topics Concern Not on file Social History Narrative Not on file Social Determinants of Health Financial Resource Strain: High Risk (11/04/2022) Overall Financial Resource Strain (CARDIA) Difficulty of Paying Living Expenses: Very hard Food Insecurity: Food Insecurity Present (11/04/2022) Hunger Vital Sign Worried About Running Out of Food in the Last Year: Often true Ran Out of Food in the Last Year: Often true Transportation Needs: Unmet Transportation Needs (11/04/2022) PRAPARE - Transportation Lack of Transportation (Medical): Yes Lack of Transportation (Non-Medical): Yes Physical Activity: Inactive (11/04/2022) Exercise Vital Sign Days of Exercise per Week: 0 days Minutes of Exercise per Session: 0 min Stress: Stress Concern Present (11/04/2022) [employer] - Occupational Stress Questionnaire Feeling of Stress : To some extent Social Connections: Socially Isolated (06/24/2023) Social Connection and Isolation Panel [NHANES] Frequency of Communication with Friends and Family: More than three times a week Frequency of Social Gatherings with Friends and Family: More than three times a week Attends [employer] Services: Never Active Member of Clubs or Organizations: No Attends Club or Organization Meetings: Never Marital Status: Never Intimate Partner Violence: Not At Risk (11/04/2022) Humiliation, Afraid, Rape, and Kick questionnaire Fear of Current or Ex-Partner: No Emotionally Abused: No Physically Abused: No Sexually Abused: No Housing Stability: High Risk (06/24/2023) Housing Stability Vital Sign Unable to Pay for Housing in the Last Year: Yes Number of Places Lived in the Last Year: 0 Unstable Housing in the Last Year: Yes Allergies: Patient has no known allergies. Review of Systems Denies suicidal or homicidal ideation denies tactile auditory or visual hallucinations All of systems ROS was completed and was negative unless stated above Physical Exam Vitals: 06/25/23 0613 06/25/23 0819 06/25/23 1029 06/25/23 1151 BP: 128/71 (!) 143/87 (!) 130/91 (!) 140/102 BP Location: Patient Position: Pulse: 87 79 84 75 Resp: 18 18 16 18 Temp: 36.9 C (98.5 F) TempSrc: Oral SpO2: 97% 98% 97% 96% Weight: 113 kg (250 lb) Height: 1.854 m (6' 1) General appearance: Cooperative, no distress, appears stated age, non-toxic. Skin: Skin color, temperature, turgor normal. No rashes or lesions. Musculoskeletal: Normal muscle strength and tone in 4 distal extremities. Normal range of motion in4 distal extremities. Psychiatric: Alert and oriented to person, place, and time. Insight: fair. Judgment: fair. Diaphoresis: 1/10 Restlessness: 2/10 Palmar Erythema 2/10 Tongue Fasciculations: 1/10 Extremity Tremors: 1/10 Imaging/Labs/Meds @RISRSLT@ Recent Results (from the past 48 hour(s)) Comprehensive metabolic panel Collection Time: 06/24/23 8:40 PM Result Value Ref Range SODIUM 144 135 - 145 mmol/L POTASSIUM 4.3 3.5 - 5.1 mmol/L CHLORIDE 108 (H) 98 - 107 mmol/L CARBON DIOXIDE 16 (L) 22 - 30 mmol/L ANION GAP 19 (H) 3 - 13 mmol/L UREA NITROGEN 5 (L) 9 - 20 mg/dL CREATININE 0.73 0.66 - 1.25 mg/dL GLUCOSE 140 (H) 70 - 100 mg/dL CALCIUM 9.5 8.4 - 10.4 mg/dL AST (SGOT) 199 (H) 15 - 46 U/L ALT 235 (H) 0 - 49 U/L ALKALINE PHOSPHATASE 124 38 - 126 U/L ALBUMIN 5.0 3.5 - 5.0 g/dL BILIRUBIN, TOTAL 0.6 0.2 - 1.3 mg/dL TOTAL PROTEIN 8.5 (H) 6.3 - 8.2 g/dL eGFR >90.0 >60.0 mL/min/1.73m*2 CBC auto differential Collection Time: 06/24/23 8:40 PM Result Value Ref Range Auto WBC 8.9 3.6 - 10.7 10*3/uL RBC 5.00 4.40 - 5.90 10*6/uL Hemoglobin 14.7 13.0 - 18.0 g/dL Hematocrit 43.7 40.0 - 52.0 % MCV 87.4 77.0 - 99.0 fL MCH 29.4 26.0 - 34.0 pg MCHC 33.6 30.5 - 36.0 % RDW 15.0 11.5 - 15.0 % Platelets 251 140 - 440 10*3/uL MPV 9.8 9.0 - 12.7 fL nRBC 0.0 0.0 - 2.0 /100 WBCs Neutrophils Relative 36.9 (L) 38.0 - 82.0 % Lymphocytes Relative 56.2 (H) 15.0 - 45.0 % Monocytes Relative 5.7 5.0 - 13.0 % Eosinophils Relative 0.4 0.0 - 6.0 % Basophils Relative 0.6 0.0 - 2.0 % Immature Grans % 0.2 0.0 - 2.0 % Neutrophils Absolute 3.3 1.8 - 7.5 10*3/uL Lymphocytes Absolute 5.0 (H) 1.0 - 4.3 10*3/uL Monocytes Absolute 0.5 0.0 - 0.9 10*3/uL Eosinophils Absolute 0.0 0.0 - 0.5 10*3/uL Basophils Absolute 0.1 0.0 - 0.2 10*3/uL Immature Grans Absolute 0.0 <0.1 10*3/uL Ethanol Collection Time: 06/24/23 8:40 PM Result Value Ref Range ETHANOL IN SER/PLAS 0.276 (H) 0.000 - 0.010 g/dL Salicylate level Collection Time: 06/24/23 8:40 PM Result Value Ref Range SALICYLATES <1.0 <20.0 mg/dL Acetaminophen level Collection Time: 06/24/23 8:40 PM Result Value Ref Range ACETAMINOPHEN <10.0 (L) 10.0 - 30.0 ug/mL CK Collection Time: 06/24/23 8:40 PM Result Value Ref Range CK 143 30 - 170 U/L SARS-CoV-2 Antigen - Behavioral Health Use Collection Time: 06/24/23 8:43 PM Specimen: Nasal; Swab Result Value Ref Range SARS-CoV-2 Antigen Negative Negative Drug screen panel, emergency Collection Time: 06/24/23 8:50 PM Result Value Ref Range AMPHETAMINE SCREEN Negative BARBITURATES SCREEN Negative BENZODIAZEPINE SCREEN Negative COCAINE METAB. SCREEN Negative METHADONE SCREEN Negative OPIATES SCREEN Negative OXYCODONE SCREEN Negative PHENCYCLIDINE SCREEN Negative BUPRENORPHINE SCREEN Collection Time: 06/24/23 8:50 PM Result Value Ref Range BUPRENORPHINE SCREEN Negative Negative Lactic acid with reflex Collection Time: 06/24/23 11:53 PM Result Value Ref Range LACTIC ACID 1.5 0.7 - 2.0 mmol/L VOLATILE PANEL,SERUM Collection Time: 06/24/23 11:53 PM Result Value Ref Range METHANOL, SERUM None Detected Toxic > 20 mg/dL, Reporting Limit 5 mg/dL mg/dL ACETONE, SERUM None Detected Toxic > 20 Reporting Limit 5 mg/dL mg/dL ETHANOL, SERUM 0.176 Reporting Limit 0.01 g/dL g/dL (W/V) ISOPROPANOL, SERUM None Detected Toxic > 20 Reporting Limit 5 mg/dL mg/dL PROTIME/INR & PTT Collection Time: 06/24/23 11:53 PM Result Value Ref Range PROTHROMBIN TIME 11.2 9.0 - 12.0 s INR 1.0 0.9 - 1.1 APTT 24.8 20.0 - 30.5 s HIV-1 and HIV-2 Antigen-Antibody Screen Collection Time: 06/24/23 11:53 PM Result Value Ref Range HIV 1,2 COMBO ANTIGEN/ANTIBODY Nonreactive Nonreactive Hepatitis C antibody Collection Time: 06/24/23 11:53 PM Result Value Ref Range HEPATITIS C VIRUS AB Not Detected Not Detected CBC auto differential Collection Time: 06/25/23 6:12 AM Result Value Ref Range Auto WBC 5.0 3.6 - 10.7 10*3/uL RBC 4.35 (L) 4.40 - 5.90 10*6/uL Hemoglobin 12.6 (L) 13.0 - 18.0 g/dL Hematocrit 38.4 (L) 40.0 - 52.0 % MCV 88.3 77.0 - 99.0 fL MCH 29.0 26.0 - 34.0 pg MCHC 32.8 30.5 - 36.0 % RDW 14.9 11.5 - 15.0 % Platelets 172 140 - 440 10*3/uL MPV 10.0 9.0 - 12.7 fL nRBC 0.0 0.0 - 2.0 /100 WBCs Neutrophils Relative 43.9 38.0 - 82.0 % Lymphocytes Relative 46.7 (H) 15.0 - 45.0 % Monocytes Relative 7.8 5.0 - 13.0 % Eosinophils Relative 0.6 0.0 - 6.0 % Basophils Relative 0.6 0.0 - 2.0 % Immature Grans % 0.4 0.0 - 2.0 % Neutrophils Absolute 2.2 1.8 - 7.5 10*3/uL Lymphocytes Absolute 2.3 1.0 - 4.3 10*3/uL Monocytes Absolute 0.4 0.0 - 0.9 10*3/uL Eosinophils Absolute 0.0 0.0 - 0.5 10*3/uL Basophils Absolute 0.0 0.0 - 0.2 10*3/uL Immature Grans Absolute 0.0 <0.1 10*3/uL TSH Collection Time: 06/25/23 6:12 AM Result Value Ref Range THYROID STIMULATING HORMONE 1.435 0.465 - 4.680 uIU/mL Vitamin B12 Collection Time: 06/25/23 6:12 AM Result Value Ref Range VITAMIN B12 517 239 - 931 pg/mL Magnesium Collection Time: 06/25/23 6:12 AM Result Value Ref Range MAGNESIUM 2.0 1.6 - 2.3 mg/dL Phosphorus Collection Time: 06/25/23 6:12 AM Result Value Ref Range PHOSPHORUS 3.8 2.5 - 4.5 mg/dL Comprehensive metabolic panel Collection Time: 06/25/23 6:12 AM Result Value Ref Range SODIUM 139 135 - 145 mmol/L POTASSIUM 4.4 3.5 - 5.1 mmol/L CHLORIDE 109 (H) 98 - 107 mmol/L CARBON DIOXIDE 19 (L) 22 - 30 mmol/L ANION GAP 10 3 - 13 mmol/L UREA NITROGEN 6 (L) 9 - 20 mg/dL CREATININE 0.69 0.66 - 1.25 mg/dL GLUCOSE 101 (H) 70 - 100 mg/dL CALCIUM 8.1 (L) 8.4 - 10.4 mg/dL AST (SGOT) 145 (H) 15 - 46 U/L ALT 179 (H) 0 - 49 U/L ALKALINE PHOSPHATASE 97 38 - 126 U/L ALBUMIN 4.0 3.5 - 5.0 g/dL BILIRUBIN, TOTAL 0.8 0.2 - 1.3 mg/dL TOTAL PROTEIN 7.2 6.3 - 8.2 g/dL eGFR >90.0 >60.0 mL/min/1.73m*2 Hemoglobin A1c Collection Time: 06/25/23 6:12 AM Result Value Ref Range HEMOGLOBIN A1C 5.7 (H) <5.7 % ESTIMATED AVERAGE GLUCOSE 117 mg/dL cloNIDine, 0.1 mg, Oral, q12h enoxaparin, 40 mg, SubCUTAneous, Daily folic acid, 1 mg, Oral, Daily metoprolol succinate XL, 25 mg, Oral, Daily OLANZapine, 7.5 mg, Oral, Nightly pantoprazole, 40 mg, Oral, qAM AC PHENobarbital, 97.2 mg, Oral, q6h thiamine, 100 mg, Oral, Daily PRN medications: albuterol, LORazepam OR LORazepam OR LORazepam OR LORazepam, LORazepamOR LORazepam, ondansetron ODT OR ondansetron, polyethylene glycol (PEG) 3350 @[id number]@ Plan 1. Alcohol use disorder severe with withdrawal Day #1 opioid use CIWA is elevated Will put him on thiamine and folic acid Will start on phenobarb taper Estimated need 4 to 5 days of withdrawals 2. 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 Will follow. STONE RAMSEY MD, MD Addiction Medicine 06/25/2023 at 1:32 PM documented in this [facility]05-16-2024 Plan of care note* Care Plan - Roma Rios RN - 06/25/2023 11:44 PM EDT Problem: Pain - Adult Goal: Verbalizes/displays adequate comfort level or baseline comfort level Outcome: Progressing Problem: Safety - Adult Goal: Free from fall injury Outcome: Progressing Problem: Anxiety Goal: LTG - Patient Stated 1 Outcome: Progressing Goal: IP Editable Goal Outcome: Progressing Goal: Objective - Identify and manage anxiety triggers Outcome: Progressing Goal: Objective - Decrease panic attacks Outcome: Progressing Goal: Objective - Reduced anxiety symptoms Outcome: Progressing Goal: Objective - Implement calming and coing strategies to reduce overall anxiety and cope with panic Outcome: Progressing The patient is Moderately Unstable - Medium risk of patient condition declining or worsening The patient's goals for the shift include Control anxiety, nausea and headaches The clinical goals for the shift include No falls this shift, no increase in CIWA [id number]* Ashlyn Aquino RN - 06/25/2023 3:10 PM EDT Report to Apolonia Aquino RN 06/25/23 1510 [id number] Emergency department Note* Ashlyn Aquino RN - 06/25/2023 3:10 PM EDT Report to Apolonia Aquino RN 06/25/23 1510 * Beatris Parada RN - 06/25/2023 3:21 AM EDT Report to JOSE GUADALUPE Goldberg RN 06/25/23 0321 * Beatris Parada RN - 06/25/2023 12:51 AM EDT Pt out of bed sitting in chair at bedside stating that he could not sleep due to his anxiety so he is sitting in the chair for a little bit. Will continue to monitor. Beatris Parada RN 06/25/23 0052 * Beatris Parada RN - 06/24/2023 9:50 PM EDT This RN introduced self to pt, pt in bed at this time. Pt placed on seizure precautions. Padded side rails, suction set up at bedside and and oxygen connected and ready to use. Pt stating that he knows this withdrawal is going to be bad This RN stated to the patient that we were here to help him. Pt denying further needs at this time, connected to monitor, call light in reach, will continue tomonitor. Beatris Parada RN 06/24/232205 * Baljinder James RN - 06/24/2023 9:40 PM EDT Report given to Tyree SHI, pt moved to ED room 27. Baljinder James RN 06/24/232140 * Baljinder James RN - 06/24/2023 9:11 PM EDT This [facility] RN met with pt, pt presented to ED seeking detox from alcohol, Xanax, meth, cocaine. Pt states he drinks three or four 5ths of 80-proof liquid daily, pt last drank today. Pt reports history of withdrawal seizures from alcohol. Pt reports taking Xanax most days, last took yesterday, pt takes 4-5 pills of Xanax daily, pt unsure of dosage. Pt also reports abusing cocaine and sometimes methamphetamines. Pt has mental health issues--depression, anxiety, PTSD. Pt states his mental health issues contribute to his MARTHA. Pt wants detox admission. Pt cooperative with admission process, labs collected and sent. Pt accepted information on [facility]. Pt refused i nformation on other out patient addiction care services at [facility]. Pending lab results, plan is to admit pt to detox unit. Baljinder James RN 06/24/232117 * Jossy Lynn MD - 06/24/2023 6:20 PM EDT Emergency Department Encounter [facility] EMERGENCY DEPT Patient: Roro Valdivia : 1985 Date of Evaluation: 06/24/2023 ED Supervising Physician: Jossy Lynn MD I independently examined and evaluated Roro Valdivia. In brief, Roro Valdivia is a 37 y.o. male with a past medical history significant for alcohol withdrawal seizures, alcohol withdrawal syndrome, panic attacks, polysubstance abuse, GERD, and SVT with hypertension and pancreatitis that presents to the emergency department for for evaluation for alcohol withdrawal. Patient's drinks about 2-3 fifths of vodka daily. Patient states would like to stopdrinking. He states he has been to detox previously but relapses. He denies alcohol withdrawal at this time. He states that he drank lots of alcohol just prior to coming to the emergency department. He denies chest pain, shortness of breath, abdominal pain or nausea and vomiting. ED Triage Vitals [06/24/231923] Temp Heart Rate Resp BP 36.9 C (98.4 F) 94 16 (!) 144/87 SpO2 Temp Source Heart Rate Source Patient Position 96 % Temporal Monitor Sitting BP Location FiO2 (%) -- -- Focused exam: [id number] in no acute distress. Alert and oriented X 3. Lungs clear to auscultation bilaterally with no wheezes or crackles appreciated. Heart rate and rhythm regular with no murmurs. Abdomensoft nontender nondistended with positive bowel sounds. No edema appreciated on the lower extremities bilaterally. I performed a substantial portion of the visit including the MDM. Brief ED course/MDM: No orders to display Labs Reviewed COMPREHENSIVE METABOLIC PANEL - Abnormal Result Value SODIUM 144 POTASSIUM 4.3 CHLORIDE 108 (*) CARBON DIOXIDE 16 (*) ANION GAP 19 (*) UREA NITROGEN 5 (*) CREATININE 0.73 GLUCOSE 140 (*) CALCIUM 9.5 AST (SGOT) 199 (*) ALT 235 (*) ALKALINE PHOSPHATASE 124 ALBUMIN 5.0 BILIRUBIN, TOTAL 0.6 TOTAL PROTEIN 8.5 (*) eGFR >90.0 CBC WITH AUTO DIFFERENTIAL - Abnormal Auto WBC 8.9 RBC 5.00 Hemoglobin 14.7 Hematocrit 43.7 MCV 87.4 MCH 29.4 MCHC 33.6 RDW 15.0 Platelets 251 MPV 9.8 nRBC 0.0 Neutrophils Relative 36.9 (*) Lymphocytes Relative 56.2 (*) Monocytes Relative 5.7 Eosinophils Relative 0.4 Basophils Relative 0.6 Immature Grans % 0.2 Neutrophils Absolute 3.3 Lymphocytes Absolute 5.0 (*) Monocytes Absolute 0.5 Eosinophils Absolute 0.0 Basophils Absolute 0.1 Immature Grans Absolute 0.0 ETHANOL - Abnormal ETHANOL IN SER/PLAS 0.276 (*) Narrative: NOTE: This result is for medical treatment only. Analysis performed using non- forensic procedures. ACETAMINOPHEN LEVEL - Abnormal ACETAMINOPHEN <10.0 (*) SARS-COV-2 ANTIGEN - Normal SARS-CoV-2 Antigen Negative LACTIC ACID WITH REFLEX - Normal LACTIC ACID 1.5 SALICYLATE - Normal SALICYLATES <1.0 PROTIME & APTT - Normal PROTHROMBIN TIME 11.2 INR 1.0 APTT 24.8 CK - Normal CK 143 DRUGS OF ABUSE AMPHETAMINE SCREEN Negative BARBITURATES SCREEN Negative BENZODIAZEPINE SCREEN Negative COCAINE METAB. SCREEN Negative METHADONE SCREEN Negative OPIATES SCREEN Negative OXYCODONE SCREEN Negative PHENCYCLIDINE SCREEN Negative Narrative: The expected value for all of the drugs listed above is Negative. The following drugs or drug groups have been screened for by Immunoassay at the following thresholds: Amphetamine class (1000 ng/mL) Barbiturates (200 ng/mL) Benzodiazepines (200 ng/mL) Cocaine (300 ng/mL) Methadone (300 ng/mL) Opiates (300 ng/mL) Oxycodone (100 ng/mL) PCP (25 ng/mL) NOTE: These results are for medical treatment only. Analysis performed using non-forensic procedures. POSITIVE results are NOT confirmed by a more specific alternative method unless requested. If confirmation is needed, request confirmation under separateorder. VOLATILE PANEL,SERUM CBC WITH AUTO DIFFERENTIAL COMPREHENSIVE METABOLIC PANEL WITH MG REFLEX Narrative: The following orders were created for panel order Comprehensive Metabolic Panel w/ Mg Reflex. Procedure Abnormality Status --------- ------ Comprehensive metabolic p...[[id number]] Please view results for these tests on the individual orders. THYROID STIMULATING HORMONE VITAMIN B12 MAGNESIUM PHOSPHORUS COMPREHENSIVE METABOLIC PANEL Diagnoses as of 06/25/23 0117 Alcohol use disorder Hypoxia Transaminitis 37-year-old presenting for evaluation for alcohol detox. Given presentation medical clearance workup completed in the department. Workup was significant for negative COVID test, no leukocytosis, no anemia, no lactic acidosis, negative drug screen, negative salicylate and acetaminophen levels with an alcohol of 276. CK at 143. Patient with no electrolyte abnormalities, no renal function impairment with transaminitis and acidosis with a CO2 of 16 likely related to alcohol related. As a result patient received a liter of IV fluids in the department. Patient received phenobarbital 97.2 mg with 2 mg of lorazepam. Was given Zofran ODT x 1 dose. Discussed lab results with the patient. At the time of my reevaluation patient with mild tremor. Discussed with patient admission medically for alcohol withdrawal is currently no detox beds available. Patient verbalized understanding of information given and agreed to plan. Patient discussed with inpatient admitting provider who accepted patient for admission. Admitted in stable condition. All diagnostic, treatment, and disposition decisions were made by myself in conjunction with the [facility]. For all further details of the patient's emergency department visit, please see their documentation. This will serve as my [facility] Supervisory note and shared attestation. (Please note that portions of this note may have been completed with a voice recognition program. Efforts were made to edit the dictations but occasionally words are mis-transcribed.) Jossy Lynn MD [employer] Jossy Lynn MD 06/25/23 0117 documented in this [facility]05-16-2024 Consult note* Stone Ramsey MD - 06/25/2023 1:32 PM EDTAssociated Order(s): IP CONSULT TO ADDICTION MEDICINE [facility] Consult service H&P Admit Date: 06/24/2023 Primary Care Physician: No primary care provider on file. ] Chief Complaint Patient presents with Drug / Alcohol Assessment Pt wants detox from xanex, crack, meth, ETOH, coke. Daily user of anything wants to get help. Substance dependence disorder History of Present Illness Roro Valdivia is a 37 y.o. year old male new to addiction medicine department as he used to be a Suboxone patient of Dr. Hilton The patient missed his appointment 2 weeks ago ran out of Suboxone and he relapsed on methamphetamine and cocaine He still going through withdrawals from the Suboxone He also continues to drink around 3/5 of vodka daily Patient denies use of cocaine and methamphetamine and alcohol was yesterday The patient was on 8 mg of Suboxone daily as mentioned above he has not taking it for the last 2 weeks Patient started drinking as a teenager dropped from high school due to alcohol use She started experiencing with opioid pain pills then progressed to fentanyl Has been using cocaine and methamphetamine sporadically since then until Patient has a history of IV drug use Has a history of blackouts related to substance use Denies any history of withdrawal seizures Has history of DTs Has many history of overdoses Has legal consequences due to substance use Upon admission his alcohol level was 0.276 his urine drug screen was negative even though that he admits that he used methamphetamine and cocaine His buprenorphine level was negative as well Patient is aware about precipitated withdrawal and if we started him on the buprenorphine while he has opioid in his system he might go into precipitated withdrawal He still insisted that he did not use opiates iv drug use Patient states that he has been seeing yesterday and the day before visual and auditory hallucinations and he was paranoid but it feels better today Substance Use Disorder Criteria 1. Taking substance in larger amounts and/or for longer than intended [x] 2. Wanting to cut down or quit substance use but not being able to [x] 3. Spending a lot of time obtaining the substance [x] 4. Craving or a strong desire to use substance [x] 5. Repeatedly doesn't carry out major obligations due to substance use [x] 6. Using despite recurring social or interpersonal problems caused by substance use [x] 7. Reducing social, occupational, or recreational activities due to substance use [x] 8. Recurrent use of substance in physically hazardous situations [x] 9. Consistent use of substance despite recurrent physical or psychological difficulties [x] 10. Tolerance (increased amounts to achieve intoxication or diminished effect) [x] 11. Withdrawal syndrome or the substance is used to avoid withdrawal [x] 2-3 = mild; 4-5 = moderate; 6 or >6 = severe substance use disorder Remaining History Past Medical History: Diagnosis Date Alcohol withdrawal with inpatient treatment, uncomplicated (HCC) 03/15/2022 GERD (gastroesophageal reflux disease) History of pancreatitis 01/07/2023 Hypertension Pancreatitis Seizures ([facility]) SVT (supraventricular tachycardia) Tourette syndrome Past Surgical History: Procedure Laterality Date APPENDECTOMY Family History Problem Relation Name Age of Onset No Known Problems Mother No Known Problems Father Social History Socioeconomic History Marital status: Single Spouse name: Not on file Number of children: Not on file Years of education: Not on file Highest education level: Not on file Occupational History Not on file Tobacco Use Smoking status: Every Day Packs/day: 1 Types: Cigarettes Smokeless tobacco: Never Vaping Use Vaping Use: Never used Substance and Sexual Activity Alcohol use: Not Currently Comment: 1 liter black velvet and a case of beer per day Drug use: Yes Types: Cocaine, Methamphetamines, Oxycodone, Fentanyl, Heroin, Benzodiazepines Sexual activity: Not Currently Other Topics Concern Not on file Social History Narrative Not on file Social Determinants of Health Financial Resource Strain: High Risk (11/04/2022) Overall Financial Resource Strain (CARDIA) Difficulty of Paying Living Expenses: Very hard Food Insecurity: Food Insecurity Present (11/04/2022) Hunger Vital Sign Worried About Running Out of Food in the Last Year: Often true Ran Out of Food in the Last Year: Often true Transportation Needs: Unmet Transportation Needs (11/04/2022) PRAPARE - Transportation Lack of Transportation (Medical): Yes Lack of Transportation (Non-Medical): Yes Physical Activity: Inactive (11/04/2022) Exercise Vital Sign Days of Exercise per Week: 0 days Minutes of Exercise per Session: 0 min Stress: Stress Concern Present (11/04/2022) [employer] - Occupational Stress Questionnaire Feeling of Stress : To some extent Social Connections: Socially Isolated (06/24/2023) Social Connection and Isolation Panel [NHANES] Frequency of Communication with Friends and Family: More than three times a week Frequency of Social Gatherings with Friends and Family: More than three times a week Attends [employer] Services: Never Active Member of Clubs or Organizations: No Attends Club or Organization Meetings: Never Marital Status: Never Intimate Partner Violence: Not At Risk (11/04/2022) Humiliation, Afraid, Rape, and Kick questionnaire Fear of Current or Ex-Partner: No Emotionally Abused: No Physically Abused: No Sexually Abused: No Housing Stability: High Risk (06/24/2023) Housing Stability Vital Sign Unable to Pay for Housing in the Last Year: Yes Number of Places Lived in the Last Year: 0 Unstable Housing in the Last Year: Yes Allergies: Patient has no known allergies. Review of Systems Denies suicidal or homicidal ideation denies tactile auditory or visual hallucinations All of systems ROS was completed and was negative unless stated above Physical Exam Vitals: 06/25/23 0613 06/25/23 0819 06/25/23 1029 06/25/23 1151 BP: 128/71 (!) 143/87 (!) 130/91 (!) 140/102 BP Location: Patient Position: Pulse: 87 79 84 75 Resp: 18 18 16 18 Temp: 36.9 C (98.5 F) TempSrc: Oral SpO2: 97% 98% 97% 96% Weight: 113 kg (250 lb) Height: 1.854 m (6' 1) General appearance: Cooperative, no distress, appears stated age, non-toxic. Skin: Skin color, temperature, turgor normal. No rashes or lesions. Musculoskeletal: Normal muscle strength and tone in 4 distal extremities. Normal range of motion in4 distal extremities. Psychiatric: Alert and oriented to person, place, and time. Insight: fair. Judgment: fair. Diaphoresis: 02/18 Restlessness: 03/21 Palmar Erythema 03/21 Tongue Fasciculations: 02/18 Extremity Tremors: 02/18 Imaging/Labs/Meds @[email or web address]@ Recent Results (from the past 48 hour(s)) Comprehensive metabolic panel Collection Time: 06/24/23 8:40 PM Result Value Ref Range SODIUM 144 135 - 145 mmol/L POTASSIUM 4.3 3.5 - 5.1 mmol/L CHLORIDE 108 (H) 98 - 107 mmol/L CARBON DIOXIDE 16 (L) 22 - 30 mmol/L ANION GAP 19 (H) 3 - 13 mmol/L UREA NITROGEN 5 (L) 9 - 20 mg/dL CREATININE 0.73 0.66 - 1.25 mg/dL GLUCOSE 140 (H) 70 - 100 mg/dL CALCIUM 9.5 8.4 - 10.4 mg/dL AST (SGOT) 199 (H) 15 - 46 U/L ALT 235 (H) 0 - 49 U/L ALKALINE PHOSPHATASE 124 38 - 126 U/L ALBUMIN 5.0 3.5 - 5.0 g/dL BILIRUBIN, TOTAL 0.6 0.2 - 1.3 mg/dL TOTAL PROTEIN 8.5 (H) 6.3 - 8.2 g/dL eGFR >90.0 >60.0 mL/min/1.73m*2 CBC auto differential Collection Time: 06/24/23 8:40 PM Result Value Ref Range Auto WBC 8.9 3.6 - 10.7 10*3/uL RBC 5.00 4.40 - 5.90 10*6/uL Hemoglobin 14.7 13.0 - 18.0 g/dL Hematocrit 43.7 40.0 - 52.0 % MCV 87.4 77.0 - 99.0 fL MCH 29.4 26.0 - 34.0 pg MCHC 33.6 30.5 - 36.0 % RDW 15.0 11.5 - 15.0 % Platelets 251 140 - 440 10*3/uL MPV 9.8 9.0 - 12.7 fL nRBC 0.0 0.0 - 2.0 /100 WBCs Neutrophils Relative 36.9 (L) 38.0 - 82.0 % Lymphocytes Relative 56.2 (H) 15.0 - 45.0 % Monocytes Relative 5.7 5.0 - 13.0 % Eosinophils Relative 0.4 0.0 - 6.0 % Basophils Relative 0.6 0.0 - 2.0 % Immature Grans % 0.2 0.0 - 2.0 % Neutrophils Absolute 3.3 1.8 - 7.5 10*3/uL Lymphocytes Absolute 5.0 (H) 1.0 - 4.3 10*3/uL Monocytes Absolute 0.5 0.0 - 0.9 10*3/uL Eosinophils Absolute 0.0 0.0 - 0.5 10*3/uL Basophils Absolute 0.1 0.0 - 0.2 10*3/uL Immature Grans Absolute 0.0 <0.1 10*3/uL Ethanol Collection Time: 06/24/23 8:40 PM Result Value Ref Range ETHANOL IN SER/PLAS 0.276 (H) 0.000 - 0.010 g/dL Salicylate level Collection Time: 06/24/23 8:40 PM Result Value Ref Range SALICYLATES <1.0 <20.0 mg/dL Acetaminophen level Collection Time: 06/24/23 8:40 PM Result Value Ref Range ACETAMINOPHEN <10.0 (L) 10.0 - 30.0 ug/mL CK Collection Time: 06/24/23 8:40 PM Result Value Ref Range CK 143 30 - 170 U/L SARS-CoV-2 Antigen - Behavioral Health Use Collection Time: 06/24/23 8:43 PM Specimen: Nasal; Swab Result Value Ref Range SARS-CoV-2 Antigen Negative Negative Drug screen panel, emergency Collection Time: 06/24/23 8:50 PM Result Value Ref Range AMPHETAMINE SCREEN Negative BARBITURATES SCREEN Negative BENZODIAZEPINE SCREEN Negative COCAINE METAB. SCREEN Negative METHADONE SCREEN Negative OPIATES SCREEN Negative OXYCODONE SCREEN Negative PHENCYCLIDINE SCREEN Negative BUPRENORPHINE SCREEN Collection Time: 06/24/23 8:50 PM Result Value Ref Range BUPRENORPHINE SCREEN Negative Negative Lactic acid with reflex Collection Time: 06/24/23 11:53 PM Result Value Ref Range LACTIC ACID 1.5 0.7 - 2.0 mmol/L VOLATILE PANEL,SERUM Collection Time: 06/24/23 11:53 PM Result Value Ref Range METHANOL, SERUM None Detected Toxic > 20 mg/dL, Reporting Limit 5 mg/dL mg/dL ACETONE, SERUM None Detected Toxic > 20 Reporting Limit 5 mg/dL mg/dL ETHANOL, SERUM 0.176 Reporting Limit 0.01 g/dL g/dL (W/V) ISOPROPANOL, SERUM None Detected Toxic > 20 Reporting Limit 5 mg/dL mg/dL PROTIME/INR & PTT Collection Time: 06/24/23 11:53 PM Result Value Ref Range PROTHROMBIN TIME 11.2 9.0 - 12.0 s INR 1.0 0.9 - 1.1 APTT 24.8 20.0 - 30.5 s HIV-1 and HIV-2 Antigen-Antibody Screen Collection Time: 06/24/23 11:53 PM Result Value Ref Range HIV 1,2 COMBO ANTIGEN/ANTIBODY Nonreactive Nonreactive Hepatitis C antibody Collection Time: 06/24/23 11:53 PM Result Value Ref Range HEPATITIS C VIRUS AB Not Detected Not Detected CBC auto differential Collection Time: 06/25/23 6:12 AM Result Value Ref Range Auto WBC 5.0 3.6 - 10.7 10*3/uL RBC 4.35 (L) 4.40 - 5.90 10*6/uL Hemoglobin 12.6 (L) 13.0 - 18.0 g/dL Hematocrit 38.4 (L) 40.0 - 52.0 % MCV 88.3 77.0 - 99.0 fL MCH 29.0 26.0 - 34.0 pg MCHC 32.8 30.5 - 36.0 % RDW 14.9 11.5 - 15.0 % Platelets 172 140 - 440 10*3/uL MPV 10.0 9.0 - 12.7 fL nRBC 0.0 0.0 - 2.0 /100 WBCs Neutrophils Relative 43.9 38.0 - 82.0 % Lymphocytes Relative 46.7 (H) 15.0 - 45.0 % Monocytes Relative 7.8 5.0 - 13.0 % Eosinophils Relative 0.6 0.0 - 6.0 % Basophils Relative 0.6 0.0 - 2.0 % Immature Grans % 0.4 0.0 - 2.0 % Neutrophils Absolute 2.2 1.8 - 7.5 10*3/uL Lymphocytes Absolute 2.3 1.0 - 4.3 10*3/uL Monocytes Absolute 0.4 0.0 - 0.9 10*3/uL Eosinophils Absolute 0.0 0.0 - 0.5 10*3/uL Basophils Absolute 0.0 0.0 - 0.2 10*3/uL Immature Grans Absolute 0.0 <0.1 10*3/uL TSH Collection Time: 06/25/23 6:12 AM Result Value Ref Range THYROID STIMULATING HORMONE 1.435 0.465 - 4.680 uIU/mL Vitamin B12 Collection Time: 06/25/23 6:12 AM Result Value Ref Range VITAMIN B12 517 239 - 931 pg/mL Magnesium Collection Time: 06/25/23 6:12 AM Result Value Ref Range MAGNESIUM 2.0 1.6 - 2.3 mg/dL Phosphorus Collection Time: 06/25/23 6:12 AM Result Value Ref Range PHOSPHORUS 3.8 2.5 - 4.5 mg/dL Comprehensive metabolic panel Collection Time: 06/25/23 6:12 AM Result Value Ref Range SODIUM 139 135 - 145 mmol/L POTASSIUM 4.4 3.5 - 5.1 mmol/L CHLORIDE 109 (H) 98 - 107 mmol/L CARBON DIOXIDE 19 (L) 22 - 30 mmol/L ANION GAP 10 3 - 13 mmol/L UREA NITROGEN 6 (L) 9 - 20 mg/dL CREATININE 0.69 0.66 - 1.25 mg/dL GLUCOSE 101 (H) 70 - 100 mg/dL CALCIUM 8.1 (L) 8.4 - 10.4 mg/dL AST (SGOT) 145 (H) 15 - 46 U/L ALT 179 (H) 0 - 49 U/L ALKALINE PHOSPHATASE 97 38 - 126 U/L ALBUMIN 4.0 3.5 - 5.0 g/dL BILIRUBIN, TOTAL 0.8 0.2 - 1.3 mg/dL TOTAL PROTEIN 7.2 6.3 - 8.2 g/dL eGFR >90.0 >60.0 mL/min/1.73m*2 Hemoglobin A1c Collection Time: 06/25/23 6:12 AM Result Value Ref Range HEMOGLOBIN A1C 5.7 (H) <5.7 % ESTIMATED AVERAGE GLUCOSE 117 mg/dL cloNIDine, 0.1 mg, Oral, q12h enoxaparin, 40 mg, SubCUTAneous, Daily folic acid, 1 mg, Oral, Daily metoprolol succinate XL, 25 mg, Oral, Daily OLANZapine, 7.5 mg, Oral, Nightly pantoprazole, 40 mg, Oral, qAM AC PHENobarbital, 97.2 mg, Oral, q6h thiamine, 100 mg, Oral, Daily PRN medications: albuterol, LORazepam OR LORazepam OR LORazepam OR LORazepam, LORazepamOR LORazepam, ondansetron ODT OR ondansetron, polyethylene glycol (PEG) 3350 @[id number]@ Plan 1. Alcohol use disorder severe with withdrawal Day #1 opioid use CIWA is elevated Will put him on thiamine and folic acid Will start on phenobarb taper Estimated need 4 to 5 days of withdrawals 2. 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 Will follow. STONE RAMSEY MD, MD Addiction Medicine 06/25/2023 at 1:32 PM [id number] NoteNOTE:These results are for medical treatment only. Analysis performed using non-forensic procedures. This test has not been cleared by the US Food and Drug Administration (FDA). The FDA has determinedthat such clearance or approval is not necessary. The performance chararcteristics have been determined by the clinical laboratories of [facility] [id number] NoteNOTE:These results are for medical treatment only. Analysis performed using non-forensic procedures. This test has not been cleared by the US Food and Drug Administration (FDA). The FDA has determinedthat such clearance or approval is not necessary. The performance chararcteristics have been determined by the clinical laboratories of [facility] [id number] Emergency department Note* Beatris Parada RN - 06/25/2023 3:21 AM EDT Report to JOSE GUADALUPE Goldberg RN 06/25/23 0321 [id number] Emergency department Note* Beatris Parada RN - 06/25/2023 12:51 AM EDT Pt out of bed sitting in chair at bedside stating that he could not sleep due to his anxiety so he is sitting in the chair for a little bit. Will continue to monitor. Beatris Parada RN 06/25/23 0052 [id number] History and physical note* Clementine Phelan Alireza, - 06/24/2023 10:00 PM EDT Internal Medicine: Med Team Initial History and Physical Roro Valdivia : 1985(37 y.o.) Date: June 24, 2023 TEAM: D Attending: Dr. Velasco Subjective: Chief Complaint: Alcohol Withdrawal HPI Roro Valdivia is a 37 y.o. male with PMH of alcohol withdrawal seizures, alcohol withdrawal syndrome, panic attacks/anxiety, history of pancreatitis, polysubstance abuse, GERD, tourette's and SVT with palpitations that presented to [facility] on 06/24/2023 from home with alcohol intoxication and requesting alcohol detox. Detox unit currently without available beds. Patient reports he drinks 3 fifths ofvodka daily with last use earlier today prior to presenting to the ED. States he has a history of IVDU; has recently used Meth and Cocaine approximately 5 days ago. Patient admits to daily Xanax use when he can afford this; last use of 2 mg of Xanax yesterday. He states it was crushed. On evaluation, patient is acutely intoxicated and a poor historian. He is Alert and oriented X3 and able to tell me his daily medications. He admits to a history of seizures related to alcohol withdrawal; has been previously sober for 120 days. He reports he was on Suboxone however did not follow up and was unable to get a refill. He admits to currently feeling anxious, difficulty sleeping, feeling restlessin the bed, and diaphoresis. He states he has had difficulty sleeping over the past 5 days, which is why is tries to take the xanax. He denies visual or auditory hallucinations. He denies SI/HI however notably upset and reports he cannot continue to live like this referring to his polysubstance use. He admits to vomiting every morning, not currently vomiting/nauseous. Denies abdominal pain. CMP significant for Chloride 108, Co2 16, AG 19, Glucose 140. AST/ALT 199/235. Lactic acid 1.5, CK wnl. CBC grossly unremarkable. BP 144/87, HR 94, RR 16, afebrile, SpO2 96% on RA. Review of Systems Constitutional: Positive for chills and diaphoresis. Negative for fatigue and fever. HENT: Negative for congestion and hearing loss. Eyes: Negative for visual disturbance. Respiratory: Negative for cough and shortness of breath. Cardiovascular: Negative for chest pain, palpitations and leg swelling. Gastrointestinal: Negative for abdominal pain, constipation, diarrhea, nausea and vomiting. Genitourinary: Negative for difficulty urinating and dysuria. Musculoskeletal: Negative for arthralgias and myalgias. Skin: Negative for rash. Neurological: Positive for tremors. Negative for dizziness, seizures, weakness, light-headedness and headaches. Psychiatric/Behavioral: Positive for sleep disturbance. Negative for suicidal ideas. The patient isnervous/anxious. Past Medical History: Diagnosis Date Alcohol withdrawal with inpatient treatment, uncomplicated (HCC) 03/15/2022 GERD (gastroesophageal reflux disease) History of pancreatitis 01/07/2023 Hypertension Pancreatitis Seizures ([facility]) SVT (supraventricular tachycardia) Tourette syndrome Past Surgical History: Procedure Laterality Date APPENDECTOMY Family History Problem Relation Name Age of Onset No Known Problems Mother No Known Problems Father Social History Tobacco Use Smoking Status Every Day Packs/day: 1 Types: Cigarettes Smokeless Tobacco Never Social History Substance and Sexual Activity Alcohol Use Not Currently Comment: 1 liter black velvet and a case of beer per day Social History Substance and Sexual Activity Drug Use Yes Types: Cocaine, Methamphetamines, Oxycodone, Fentanyl, Heroin, Benzodiazepines No Known Allergies Prior to Admission medications Medication Sig Start Date End Date Taking? Authorizing Provider albuterol 108 (90 Base) MCG/ACT inhaler Inhale 2 puffs every 6 hours as needed for wheezing. 11/12/22 11/12/23 [place] Royal Hilton DO buprenorphine-naloxone (Suboxone) 8-[address] 1 tablet under the tongue daily for 28 days. 04/29/23 05/27/23 [place] Royal Hilton DO cloNIDine (Catapres) 0.1 MG tablet Take 1 tablet (0.1 mg) by mouth 2 times daily. 11/12/22 11/12/23 [facility] DO Lida hydrOXYzine pamoate (Vistaril) 50 MG capsule Take 1 capsule (50 mg) by mouth every 6 hours as needed for allergies or anxiety. 12/10/22 05/17/23 [facility] Lida DO metoprolol succinate XL (Toprol-XL) 25 MG 24 hr tablet Take 2 tablets (50 mg) by mouth daily. Do not crush or chew. 03/18/23 05/17/23 [facility] DO Lida nicotine (Nicoderm CQ) 21 MG/24HR patch Place 1 patch on the skin Every 24 hours. 11/15/22 12/15/22 Carlitos Orta MD OLANZapine (ZyPREXA) 5 MG tablet Take 1 tablet (5 mg) by mouth Nightly. Patient taking differently: Take 7.5 mg by mouth Nightly. 11/12/22 06/10/23 [place] Royal Hilton DO omeprazole (PriLOSEC) [address] capsule Take 1 capsule (20 mg) by mouth every morning (before breakfast). Do not crush or chew. 12/10/22 [place] Royal Hilton DO ondansetron ODT (Zofran-ODT) 4 MG disintegrating tablet Take 1 tablet (4 mg) by mouth every 8 hoursas needed for nausea or vomiting. 11/12/22 [place] Royal Hilton DO traZODone (Desyrel) 50 MG tablet Take 2 tablets (100 mg) by mouth Nightly. 12/10/22 03/25/23 Thiago Hilton DO Objective: Vitals: 06/24/231923 BP: (!) 144/87 Patient Position: Sitting Pulse: 94 Resp: 16 Temp: 36.9 C (98.4 F) TempSrc: Temporal SpO2: 96% Physical Exam Constitutional: General: He is not in acute distress. Appearance: He is ill-appearing. HENT: Head: Normocephalic and atraumatic. Mouth/Throat: Mouth: Mucous membranes are moist. Pharynx: Oropharynx is clear. No oropharyngeal exudate or posterior oropharyngeal erythema. Comments: Poor dentition Eyes: General: No scleral icterus. Extraocular Movements: Extraocular movements intact. Conjunctiva/sclera: Conjunctivae normal. Pupils: Pupils are equal, round, and reactive to light. Cardiovascular: Rate and Rhythm: Normal rate and regular rhythm. Heart sounds: No murmur heard. Pulmonary: Effort: Pulmonary effort is normal. No respiratory distress. Breath sounds: Normal breath sounds. No wheezing. Comments: Patient protecting airway, no increased work of breathing or respiratory distress. Abdominal: General: Abdomen is flat. Bowel sounds are normal. There is no distension. Palpations: Abdomen is soft. Tenderness: There is no abdominal tenderness. Musculoskeletal: Right lower leg: No edema. Left lower leg: No edema. Skin: General: Skin is warm. Neurological: General: No focal deficit present. Mental Status: He is alert and oriented to person, place, and time. Comments: Mild BUE tremor noted. Acutely intoxicated; restless. Involuntary neck movement 2/2 tourette history Psychiatric: Comments: Anxious/nervous. Fast speech. [facility] within last 24 hours Auto WBC Date Value Ref Range Status 06/24/2023 8.9 3.6 - 10.7 10*3/uL Final Hemoglobin Date Value Ref Range Status 06/24/2023 14.7 13.0 - 18.0 g/dL Final Hematocrit Date Value Ref Range Status 06/24/2023 43.7 40.0 - 52.0 % Final Platelets Date Value Ref Range Status 06/24/2023 251 140 - 440 10*3/uL Final MCV Date Value Ref Range Status 06/24/2023 87.4 77.0 - 99.0 fL Final SODIUM Date Value Ref Range Status 06/24/2023 144 135 - 145 mmol/L Final POTASSIUM Date Value Ref Range Status 06/24/2023 4.3 3.5 - 5.1 mmol/L Final CHLORIDE Date Value Ref Range Status 06/24/2023 108 (H) 98 - 107 mmol/L Final CARBON DIOXIDE Date Value Ref Range Status 06/24/2023 16 (L) 22 - 30 mmol/L Final UREA NITROGEN Date Value Ref Range Status 06/24/2023 5 (L) 9 - 20 mg/dL Final CREATININE Date Value Ref Range Status 06/24/2023 0.73 0.66 - 1.25 mg/dL Final GLUCOSE Date Value Ref Range Status 06/24/2023 140 (H) 70 - 100 mg/dL Final CALCIUM Date Value Ref Range Status 06/24/2023 9.5 8.4 - 10.4 mg/dL Final AST (SGOT) Date Value Ref Range Status 06/24/2023 199 (H) 15 - 46 U/L Final ALT Date Value Ref Range Status 06/24/2023 235 (H) 0 - 49 U/L Final TOTAL PROTEIN Date Value Ref Range Status 06/24/2023 8.5 (H) 6.3 - 8.2 g/dL Final BILIRUBIN, TOTAL Date Value Ref Range Status 06/24/2023 0.6 0.2 - 1.3 mg/dL Final ALKALINE PHOSPHATASE Date Value Ref Range Status 06/24/2023 124 38 - 126 U/L Final No results found for: CKTOTAL, CKMB, TROPONINI No results found for: PROCAL, CHOL, TRIG, HDL, TSH, VITD25, HGBA1C, VANCOTROUGH Assessment and Plan: #Alcohol intoxication #Alcohol Detox #History of Alcohol withdrawal seizures #Concern for benzodiazepine withdrawal -Consult ADM; start on Phenobarbital 97.2 mg every 6 hours and CIWA PRN -Ethanol level .276, last drink prior to ED admission. Currently drinks 3 fifths of vodka daily; history of alcohol withdrawal seizures -Recent Xanax 2 mg use yesterday; UDS negative. -Check Volatile panel; LA and CK wnl -Daily folate and Thiamine supplement; check phos, magnesium, and B12 -Acetaminophen and salicylate level negative #Transaminitis -AST/ALT: 199/235. Likely related to ongoing alcohol use -Acetaminophen and salicylate level negative -Continue to trend, if increases will need to change Phenobarbital. #HAGMA -LA wnl -Suspect component of starvation ketosis in the setting of alcohol use. -Order for 1L NS bolus per ED -Continue to monitor #Polysubstance use #History of IVDU -Recently used methamphetamine and cocaine 5 days ago; admits to Xanax use yesterday -UDS negative -Check HIV and Hep C; previously negative #History of Tourette's -Reports he is on Clonidine .1 mg BID ?as needed #GERD -Protonix daily before meals #History of SVT with palpitations -Currently on 50 mg daily; start with 25 mg daily and increase to home dose as tolerated #Anxiety #Panic Attacks -Continue Zyprexa 7.5 mg nightly -Check TSH - Goals of Care: FULL CODE - DVT Prophylaxis: Lovenox 40 q24hr - CrCl >30 - GI Prophylaxis: Protonix daily - Diet: General - BMI Classification: There is no height or weight on file to calculate BMI. Overweight (BMI 25-29.9) - Disposition: Admit to Telemetry. - Given the signs and symptoms associated with his primary diagnosis in the setting of his comorbidconditions, he is expected to require >48 hrs of hospital care (i.e. inpatient level care). Associated attestation - Evans Velasco MD - 06/25/2023 4:25 PM EDT I have personally examined the patient and reviewed the case with the residents. I agree with the current plan of care including the workup, evaluation, management, and diagnosis. Care plan has been discussed. The above documentation has been reviewed and edited as needed to reflect the findings ofmy evaluation. - pt admitted for alcohol detox. - he has a significant hx of EtOH abuse (3 fifths of vodka daily), as well polysubstance abuse (including IV meth, and cocaine abuse). - also has a hx of EtOH withdrawal seizures. - currently on CIWA protocol, with Phenobarb taper. - ADM has maite consulted. [facility] [id number] History and physical note* Clementine Lay DO - 06/24/2023 10:00 PM EDT Internal Medicine: Med Team Initial History and Physical Roro Valdivia : 1985(37 y.o.) Date: June 24, 2023 TEAM: D Attending: Dr. Velasco Subjective: Chief Complaint: Alcohol Withdrawal HPI Roro Valdivia is a 37 y.o. male with PMH of alcohol withdrawal seizures, alcohol withdrawal syndrome, panic attacks/anxiety, history of pancreatitis, polysubstance abuse, GERD, tourette's and SVT with palpitations that presented to [facility] on 06/24/2023 from home with alcohol intoxication and requesting alcohol detox. Detox unit currently without available beds. Patient reports he drinks 3 fifths ofvodka daily with last use earlier today prior to presenting to the ED. States he has a history of IVDU; has recently used Meth and Cocaine approximately 5 days ago. Patient admits to daily Xanax use when he can afford this; last use of 2 mg of Xanax yesterday. He states it was crushed. On evaluation, patient is acutely intoxicated and a poor historian. He is Alert and oriented X3 and able to tell me his daily medications. He admits to a history of seizures related to alcohol withdrawal; has been previously sober for 120 days. He reports he was on Suboxone however did not follow up and was unable to get a refill. He admits to currently feeling anxious, difficulty sleeping, feeling restlessin the bed, and diaphoresis. He states he has had difficulty sleeping over the past 5 days, which is why is tries to take the xanax. He denies visual or auditory hallucinations. He denies SI/HI however notably upset and reports he cannot continue to live like this referring to his polysubstance use. He admits to vomiting every morning, not currently vomiting/nauseous. Denies abdominal pain. CMP significant for Chloride 108, Co2 16, AG 19, Glucose 140. AST/ALT 199/235. Lactic acid 1.5, CK wnl. CBC grossly unremarkable. BP 144/87, HR 94, RR 16, afebrile, SpO2 96% on RA. Review of Systems Constitutional: Positive for chills and diaphoresis. Negative for fatigue and fever. HENT: Negative for congestion and hearing loss. Eyes: Negative for visual disturbance. Respiratory: Negative for cough and shortness of breath. Cardiovascular: Negative for chest pain, palpitations and leg swelling. Gastrointestinal: Negative for abdominal pain, constipation, diarrhea, nausea and vomiting. Genitourinary: Negative for difficulty urinating and dysuria. Musculoskeletal: Negative for arthralgias and myalgias. Skin: Negative for rash. Neurological: Positive for tremors. Negative for dizziness, seizures, weakness, light-headedness and headaches. Psychiatric/Behavioral: Positive for sleep disturbance. Negative for suicidal ideas. The patient isnervous/anxious. Past Medical History: Diagnosis Date Alcohol withdrawal with inpatient treatment, uncomplicated (HCC) 03/15/2022 GERD (gastroesophageal reflux disease) History of pancreatitis 01/07/2023 Hypertension Pancreatitis Seizures (HCC) SVT (supraventricular tachycardia) Tourette syndrome Past Surgical History: Procedure Laterality Date APPENDECTOMY Family History Problem Relation Name Age of Onset No Known Problems Mother No Known Problems Father Social History Tobacco Use Smoking Status Every Day Packs/day: 1 Types: Cigarettes Smokeless Tobacco Never Social History Substance and Sexual Activity Alcohol Use Not Currently Comment: 1 liter black velvet and a case of beer per day Social History Substance and Sexual Activity Drug Use Yes Types: Cocaine, Methamphetamines, Oxycodone, Fentanyl, Heroin, Benzodiazepines No Known Allergies Prior to Admission medications Medication Sig Start Date End Date Taking? Authorizing Provider albuterol 108 (90 Base) MCG/ACT inhaler Inhale 2 puffs every 6 hours as needed for wheezing. 11/12/22 11/12/23 Thiago Hilton DO buprenorphine-naloxone (Suboxone) 8-[address] 1 tablet under the tongue daily for 28 days. 04/29/23 05/27/23 Thiago Hilton DO cloNIDine (Catapres) 0.1 MG tablet Take 1 tablet (0.1 mg) by mouth 2 times daily. 11/12/22 11/12/23 Thiago Hilton DO hydrOXYzine pamoate (Vistaril) 50 MG capsule Take 1 capsule (50 mg) by mouth every 6 hours as needed for allergies or anxiety. 12/10/22 05/17/23 Thiago Hilton DO metoprolol succinate XL (Toprol-XL) 25 MG 24 hr tablet Take 2 tablets (50 mg) by mouth daily. Do not crush or chew. 03/18/23 05/17/23 Thiago M Lida, DO nicotine (Nicoderm CQ) 21 MG/24HR patch Place 1 patch on the skin Every 24 hours. 11/15/22 12/15/22 Carlitos Orta MD OLANZapine (ZyPREXA) 5 MG tablet Take 1 tablet (5 mg) by mouth Nightly. Patient taking differently: Take 7.5 mg by mouth Nightly. 11/12/22 06/10/23 Thiago Hilton DO omeprazole (PriLOSEC) [address] capsule Take 1 capsule (20 mg) by mouth every morning (before breakfast). Do not crush or chew. 12/10/22 Thiago Hilton DO ondansetron ODT (Zofran-ODT) 4 MG disintegrating tablet Take 1 tablet (4 mg) by mouth every 8 hoursas needed for nausea or vomiting. 11/12/22 Thiago Hilton DO traZODone (Desyrel) 50 MG tablet Take 2 tablets (100 mg) by mouth Nightly. 12/10/22 03/25/23 Thiago Hilton DO Objective: Vitals: 06/24/231923 BP: (!) 144/87 Patient Position: Sitting Pulse: 94 Resp: 16 Temp: 36.9 C (98.4 F) TempSrc: Temporal SpO2: 96% Physical Exam Constitutional: General: He is not in acute distress. Appearance: He is ill-appearing. HENT: Head: Normocephalic and atraumatic. Mouth/Throat: Mouth: Mucous membranes are moist. Pharynx: Oropharynx is clear. No oropharyngeal exudate or posterior oropharyngeal erythema. Comments: Poor dentition Eyes: General: No scleral icterus. Extraocular Movements: Extraocular movements intact. Conjunctiva/sclera: Conjunctivae normal. Pupils: Pupils are equal, round, and reactive to light. Cardiovascular: Rate and Rhythm: Normal rate and regular rhythm. Heart sounds: No murmur heard. Pulmonary: Effort: Pulmonary effort is normal. No respiratory distress. Breath sounds: Normal breath sounds. No wheezing. Comments: Patient protecting airway, no increased work of breathing or respiratory distress. Abdominal: General: Abdomen is flat. Bowel sounds are normal. There is no distension. Palpations: Abdomen is soft. Tenderness: There is no abdominal tenderness. Musculoskeletal: Right lower leg: No edema. Left lower leg: No edema. Skin: General: Skin is warm. Neurological: General: No focal deficit present. Mental Status: He is alert and oriented to person, place, and time. Comments: Mild BUE tremor noted. Acutely intoxicated; restless. Involuntary neck movement 2/2 tourette history Psychiatric: Comments: Anxious/nervous. Fast speech. [facility] within last 24 hours Auto WBC Date Value Ref Range Status 06/24/2023 8.9 3.6 - 10.7 10*3/uL Final Hemoglobin Date Value Ref Range Status 06/24/2023 14.7 13.0 - 18.0 g/dL Final Hematocrit Date Value Ref Range Status 06/24/2023 43.7 40.0 - 52.0 % Final Platelets Date Value Ref Range Status 06/24/2023 251 140 - 440 10*3/uL Final MCV Date Value Ref Range Status 06/24/2023 87.4 77.0 - 99.0 fL Final SODIUM Date Value Ref Range Status 06/24/2023 144 135 - 145 mmol/L Final POTASSIUM Date Value Ref Range Status 06/24/2023 4.3 3.5 - 5.1 mmol/L Final CHLORIDE Date Value Ref Range Status 06/24/2023 108 (H) 98 - 107 mmol/L Final CARBON DIOXIDE Date Value Ref Range Status 06/24/2023 16 (L) 22 - 30 mmol/L Final UREA NITROGEN Date Value Ref Range Status 06/24/2023 5 (L) 9 - 20 mg/dL Final CREATININE Date Value Ref Range Status 06/24/2023 0.73 0.66 - 1.25 mg/dL Final GLUCOSE Date Value Ref Range Status 06/24/2023 140 (H) 70 - 100 mg/dL Final CALCIUM Date Value Ref Range Status 06/24/2023 9.5 8.4 - 10.4 mg/dL Final AST (SGOT) Date Value Ref Range Status 06/24/2023 199 (H) 15 - 46 U/L Final ALT Date Value Ref Range Status 06/24/2023 235 (H) 0 - 49 U/L Final TOTAL PROTEIN Date Value Ref Range Status 06/24/2023 8.5 (H) 6.3 - 8.2 g/dL Final BILIRUBIN, TOTAL Date Value Ref Range Status 06/24/2023 0.6 0.2 - 1.3 mg/dL Final ALKALINE PHOSPHATASE Date Value Ref Range Status 06/24/2023 124 38 - 126 U/L Final No results found for: CKTOTAL, CKMB, TROPONINI No results found for: PROCAL, CHOL, TRIG, HDL, TSH, VITD25, HGBA1C, VANCOTROUGH Assessment and Plan: #Alcohol intoxication #Alcohol Detox #History of Alcohol withdrawal seizures #Concern for benzodiazepine withdrawal -Consult ADM; start on Phenobarbital 97.2 mg every 6 hours and CIWA PRN -Ethanol level .276, last drink prior to ED admission. Currently drinks 3 fifths of vodka daily; history of alcohol withdrawal seizures -Recent Xanax 2 mg use yesterday; UDS negative. -Check Volatile panel; LA and CK wnl -Daily folate and Thiamine supplement; check phos, magnesium, and B12 -Acetaminophen and salicylate level negative #Transaminitis -AST/ALT: 199/235. Likely related to ongoing alcohol use -Acetaminophen and salicylate level negative -Continue to trend, if increases will need to change Phenobarbital. #HAGMA -LA wnl -Suspect component of starvation ketosis in the setting of alcohol use. -Order for 1L NS bolus per ED -Continue to monitor #Polysubstance use #History of IVDU -Recently used methamphetamine and cocaine 5 days ago; admits to Xanax use yesterday -UDS negative -Check HIV and Hep C; previously negative #History of Tourette's -Reports he is on Clonidine .1 mg BID ?as needed #GERD -Protonix daily before meals #History of SVT with palpitations -Currently on 50 mg daily; start with 25 mg daily and increase to home dose as tolerated #Anxiety #Panic Attacks -Continue Zyprexa 7.5 mg nightly -Check TSH - Goals of Care: FULL CODE - DVT Prophylaxis: Lovenox 40 q24hr - CrCl >30 - GI Prophylaxis: Protonix daily - Diet: General - BMI Classification: There is no height or weight on file to calculate BMI. Overweight (BMI 25-29.9) - Disposition: Admit to Telemetry. - Given the signs and symptoms associated with his primary diagnosis in the setting of his comorbidconditions, he is expected to require >48 hrs of hospital care (i.e. inpatient level care). Associated attestation - Evans Velasco MD - 06/25/2023 4:25 PM EDT I have personally examined the patient and reviewed the case with the residents. I agree with the current plan of care including the workup, evaluation, management, and diagnosis. Care plan has been discussed. The above documentation has been reviewed and edited as needed to reflect the findings ofmy evaluation. - pt admitted for alcohol detox. - he has a significant hx of EtOH abuse (3 fifths of vodka daily), as well polysubstance abuse (including IV meth, and cocaine abuse). - also has a hx of EtOH withdrawal seizures. - currently on CIWA protocol, with Phenobarb taper. - ADM has maite consulted. documented in this [facility]05-15-2024 Emergency department Note* Beatris Parada RN - 06/24/2023 9:50 PM EDT This RN introduced self to pt, pt in bed at this time. Pt placed on seizure precautions. Padded side rails, suction set up at bedside and and oxygen connected and ready to use. Pt stating that he knows this withdrawal is going to be bad This RN stated to the patient that we were here to help him. Pt denying further needs at this time, connected to monitor, call light in reach, will continue tomonitor. Beatris Parada RN 06/24/232205 [id number]* Baljinder James RN - 06/24/2023 9:40 PM EDT Report given to Tyree SHI, pt moved to ED room 27. Baljinder James RN 06/24/232140 [id number] NoteNOTE: This result is for medical treatment only. Analysis performed using non-forensic procedures. [id number] Emergency [facility] Note* Baljinder James RN - 06/24/2023 9:11 PM EDT This [facility] RN met with pt, pt presented to ED seeking detox from alcohol, Xanax, meth, cocaine. Pt states he drinks three or four 5ths of 80-proof liquid daily, pt last drank today. Pt reports history of withdrawal seizures from alcohol. Pt reports taking Xanax most days, last took yesterday, pt takes 4-5 pills of Xanax daily, pt unsure of dosage. Pt also reports abusing cocaine and sometimes methamphetamines. Pt has mental health issues--depression, anxiety, PTSD. Pt states his mental health issues contribute to his MARTHA. Pt wants detox admission. Pt cooperative with admission process, labs collected and sent. Pt accepted information on [facility]. Pt refused i nformation on other out patient addiction care services at [facility]. Pending lab results, plan is to admit pt to detox unit. Baljinder James RN 06/24/232117 [id number] Phys[facility] Emergency department Note* Jossy Lynn MD - 06/24/2023 6:20 PM EDT Emergency Department Encounter [facility] EMERGENCY DEPT Patient: Roro Valdivia : 1985 Date of Evaluation: 06/24/2023 ED Supervising Physician: Jossy Lynn MD I independently examined and evaluated Roro Valdivia. In brief, Roro Valdivia is a 37 y.o. male with a past medical history significant for alcohol withdrawal seizures, alcohol withdrawal syndrome, panic attacks, polysubstance abuse, GERD, and SVT with hypertension and pancreatitis that presents to the emergency department for for evaluation for alcohol withdrawal. Patient's drinks about 2-3 fifths of vodka daily. Patient states would like to stopdrinking. He states he has been to detox previously but relapses. He denies alcohol withdrawal at this time. He states that he drank lots of alcohol just prior to coming to the emergency department. He denies chest pain, shortness of breath, abdominal pain or nausea and vomiting. ED Triage Vitals [06/24/231923] Temp Heart Rate Resp BP 36.9 C (98.4 F) 94 16 (!) 144/87 SpO2 Temp Source Heart Rate Source Patient Position 96 % Temporal Monitor Sitting BP Location FiO2 (%) -- -- Focused exam: [id number] in no acute distress. Alert and oriented X 3. Lungs clear to auscultation bilaterally with no wheezes or crackles appreciated. Heart rate and rhythm regular with no murmurs. Abdomensoft nontender nondistended with positive bowel sounds. No edema appreciated on the lower extremities bilaterally. I performed a substantial portion of the visit including the MDM. Brief ED course/MDM: No orders to display Labs Reviewed COMPREHENSIVE METABOLIC PANEL - Abnormal Result Value SODIUM 144 POTASSIUM 4.3 CHLORIDE 108 (*) CARBON DIOXIDE 16 (*) ANION GAP 19 (*) UREA NITROGEN 5 (*) CREATININE 0.73 GLUCOSE 140 (*) CALCIUM 9.5 AST (SGOT) 199 (*) ALT 235 (*) ALKALINE PHOSPHATASE 124 ALBUMIN 5.0 BILIRUBIN, TOTAL 0.6 TOTAL PROTEIN 8.5 (*) eGFR >90.0 CBC WITH AUTO DIFFERENTIAL - Abnormal Auto WBC 8.9 RBC 5.00 Hemoglobin 14.7 Hematocrit 43.7 MCV 87.4 MCH 29.4 MCHC 33.6 RDW 15.0 Platelets 251 MPV 9.8 nRBC 0.0 Neutrophils Relative 36.9 (*) Lymphocytes Relative 56.2 (*) Monocytes Relative 5.7 Eosinophils Relative 0.4 Basophils Relative 0.6 Immature Grans % 0.2 Neutrophils Absolute 3.3 Lymphocytes Absolute 5.0 (*) Monocytes Absolute 0.5 Eosinophils Absolute 0.0 Basophils Absolute 0.1 Immature Grans Absolute 0.0 ETHANOL - Abnormal ETHANOL IN SER/PLAS 0.276 (*) Narrative: NOTE: This result is for medical treatment only. Analysis performed using non- forensic procedures. ACETAMINOPHEN LEVEL - Abnormal ACETAMINOPHEN <10.0 (*) SARS-COV-2 ANTIGEN - Normal SARS-CoV-2 Antigen Negative LACTIC ACID WITH REFLEX - Normal LACTIC ACID 1.5 SALICYLATE - Normal SALICYLATES <1.0 PROTIME & APTT - Normal PROTHROMBIN TIME 11.2 INR 1.0 APTT 24.8 CK - Normal CK 143 DRUGS OF ABUSE AMPHETAMINE SCREEN Negative BARBITURATES SCREEN Negative BENZODIAZEPINE SCREEN Negative COCAINE METAB. SCREEN Negative METHADONE SCREEN Negative OPIATES SCREEN Negative OXYCODONE SCREEN Negative PHENCYCLIDINE SCREEN Negative Narrative: The expected value for all of the drugs listed above is Negative. The following drugs or drug groups have been screened for by Immunoassay at the following thresholds: Amphetamine class (1000 ng/mL) Barbiturates (200 ng/mL) Benzodiazepines (200 ng/mL) Cocaine (300 ng/mL) Methadone (300 ng/mL) Opiates (300 ng/mL) Oxycodone (100 ng/mL) PCP (25 ng/mL) NOTE: These results are for medical treatment only. Analysis performed using non-forensic procedures. POSITIVE results are NOT confirmed by a more specific alternative method unless requested. If confirmation is needed, request confirmation under separateorder. VOLATILE PANEL,SERUM CBC WITH AUTO DIFFERENTIAL COMPREHENSIVE METABOLIC PANEL WITH MG REFLEX Narrative: The following orders were created for panel order Comprehensive Metabolic Panel w/ Mg Reflex. Procedure Abnormality Status --------- ------ Comprehensive metabolic p...[[id number]] Please view results for these tests on the individual orders. THYROID STIMULATING HORMONE VITAMIN B12 MAGNESIUM PHOSPHORUS COMPREHENSIVE METABOLIC PANEL Diagnoses as of 06/25/23 0117 Alcohol use disorder Hypoxia Transaminitis 37-year-old presenting for evaluation for alcohol detox. Given presentation medical clearance workup completed in the department. Workup was significant for negative COVID test, no leukocytosis, no anemia, no lactic acidosis, negative drug screen, negative salicylate and acetaminophen levels with an alcohol of 276. CK at 143. Patient with no electrolyte abnormalities, no renal function impairment with transaminitis and acidosis with a CO2 of 16 likely related to alcohol related. As a result patient received a liter of IV fluids in the department. Patient received phenobarbital 97.2 mg with 2 mg of lorazepam. Was given Zofran ODT x 1 dose. Discussed lab results with the patient. At the time of my reevaluation patient with mild tremor. Discussed with patient admission medically for alcohol withdrawal is currently no detox beds available. Patient verbalized understanding of information given and agreed to plan. Patient discussed with inpatient admitting provider who accepted patient for admission. Admitted in stable condition. All diagnostic, treatment, and disposition decisions were made by myself in conjunction with the [facility]. For all further details of the patient's emergency department visit, please see their documentation. This will serve as my [facility] Supervisory note and shared attestation. (Please note that portions of this note may have been completed with a voice recognition program. Efforts were made to edit the dictations but occasionally words are mis-transcribed.) Jossy Lynn MD Acute [facility] Jossy Lynn MD 06/25/23 0117 [id number] Telephone encounter Note* Telephone Encounter - Josy Hernandez - 06/15/2023 3:00 PM EDT Spoke w pnt. Appt made and refill request sent [id number] Miscellaneous Notes* Telephone Encounter - Josy Hernandez - 06/15/2023 3:00 PM EDT Spoke w pnt. Appt made and refill request sent * Telephone Encounter - Joanne Alvarez - 06/15/2023 1:53 PM EDT Name of Caller: Roro Valdivia Contact Reason for Appointment: Pt stated that he received a notification that he missed an appointment with the provider. Pt stated that he was unaware of the appointment and would like to get another appointment scheduled with the provider. Pt stated that he only has two days of the Buprenorphine-Naloxone (Suboxone) medication left and is requesting a refill. Pt is requesting a call back. Please advise. Office Name: Behavioral Health Medication Refills need, if any: Yes Medication Name: Buprenorphine-Naloxone (Suboxone) documented in this encounterSDayton [facility] [id number] Telephone encounter Note* Telephone Encounter - Joanne Alvarez - 06/15/2023 1:53 PM EDT Name of Caller: Roro Valdivia Contact Reason for Appointment: Pt stated that he received a notification that he missed an appointment with the provider. Pt stated that he was unaware of the appointment and would like to get another appointment scheduled with the provider. Pt stated that he only has two days of the Buprenorphine-Naloxone (Suboxone) medication left and is requesting a refill. Pt is requesting a call back. Please advise. Office Name: Behavioral Health Medication Refills need, if any: Yes Medication Name: Buprenorphine-Naloxone (Suboxone) [id number] History of Present illness Narrative* Thiago Hilton DO - 04/29/2023 3:00 PM EDT PATIENT: Roro Valdivia Chief complaint Seen for follow up of substance dependence/use disorder, evalutae the sobriety progress and to monitor withdrawals Subjective Roro Valdivia, a 37 y.o. male, who presents for a follow-up MAT appointment. Medication response: Taking buprenorphine as directed. Denies any specific complaints or missed doses. Side effects from medication: denies any side effects from the buprenorphine, tolerating it well. Stressors/Triggers: doing well overall managing stressors well started new job Cravings. minimal Psychiatry: stable Review of systems: Denies suicidal or homicidal ideation denies tactile auditory or visual hallucinations All of systems ROS was completed and was negative unless stated above Objective Physical Exam Constitutional: General: He is not in acute distress. Appearance: He is not diaphoretic. HENT: Head: Normocephalic and atraumatic. Nose: No rhinorrhea. Cardiovascular: Rate and Rhythm: Normal rate. Pulmonary: Effort: Pulmonary effort is normal. No respiratory distress. Neurological: Mental Status: He is alert and oriented to person, place, and time. Psychiatric: Attention and Perception: He does not perceive auditory or visual hallucinations. Behavior: Behavior is cooperative. Thought Content: Thought content does not include homicidal or suicidal ideation. Current Outpatient Medications Medication Sig Dispense Refill albuterol 108 (90 Base) MCG/ACT inhaler Inhale 2 puffs every 6 hours as needed for wheezing. 18 g 11 buprenorphine-naloxone (Suboxone) 8-[address] 1 tablet under the tongue daily for 28 days. 28 tablet 0 cloNIDine (Catapres) 0.1 MG tablet Take 1 tablet (0.1 mg) by mouth 2 times daily. 30 tablet 11 hydrOXYzine pamoate (Vistaril) 50 MG capsule Take 1 capsule (50 mg) by mouth every 6 hours as needed for allergies or anxiety. 90 capsule 6 metoprolol succinate XL (Toprol-XL) 25 MG 24 hr tablet Take 2 tablets (50 mg) by mouth daily. Do not crush or chew. 30 tablet 3 nicotine (Nicoderm CQ) 21 MG/24HR patch Place 1 patch on the skin Every 24 hours. 30 patch 0 OLANZapine (ZyPREXA) 5 MG tablet Take 1 tablet (5 mg) by mouth Nightly. (Patient taking differently: Take 7.5 mg by mouth Nightly.) 30 tablet 6 omeprazole (PriLOSEC) [address] capsule Take 1 capsule (20 mg) by mouth every morning (before breakfast). Do not crush or chew. 30 capsule 6 ondansetron ODT (Zofran-ODT) 4 MG disintegrating tablet Take 1 tablet (4 mg) by mouth every 8 hoursas needed for nausea or vomiting. 30 tablet 3 traZODone (Desyrel) 50 MG tablet Take 2 tablets (100 mg) by mouth Nightly. 30 tablet 6 No current facility-administered medications for this visit. OARRS: Reviewed and no inconsistencies or concerns Urine Drug Screen/THC/Buprenorphine level: negative/positive/positive ---> 03/18/23 Assessment & Plan Substance dependence disorder 1. Severe opioid use disorder (HCC) - continue current plan patient stable in recovery - buprenorphine-naloxone (Suboxone) 8-2 MG SL tablet; Place 1 tablet under the tongue daily for 28 days. Dispense: 28 tablet; Refill: 0 Patient Goals: 1. Continue 12-step meeting attendance (goal of 2 per week). 2. Actively communicate with sponsor. 3. Take medication as directed and report any negative side effects or missed doses. 4. Report any illicit drug use to either the briefcase sewer or myself/my staff. 5. Keep medicine out of the reach of children. 6. Follow-up with recommended level of care. Interventions in Session: 1. Discussed patient's progress in their 12-step program. 2. Discussed progress in recovery and overall well-being. 3. Discussed stressors/triggers for a potential relapse & related coping mechanisms. Thiago Hilton DO Addiction Medicine 05/07/2023 at 12:59 PM Associated attestation - Stone Ramsey MD - 05/07/2023 4:44 PM EDT Patient seen and examined by me. Discussed patient with the resident/fellow/KOBY. Agree with assessment and plan as written. I did counseling, coordinating care and provided discussion regarding this patient's condition ,chemical dependency, psychiatric and medical history, symptoms and signs , reviewing past detoxification hospitalizations, assessing withdrawal status, evaluating detoxification medications, and discussing lab work and treatment plan ,importance of compliance with the treatment with providing options, as well as documenting on the day of the visit. STONE RAMSEY MD 05/07/23 4:44 PM documented in this [facility]03-20-2024 History of Present illness Narrative* Thiago Hilton DO - 04/29/2023 3:00 PM EDT PATIENT: Roro Valdivia Chief complaint Seen for follow up of substance dependence/use disorder, evalutae the sobriety progress and to monitor withdrawals Subjective Roro Valdivia, a 37 y.o. male, who presents for a follow-up MAT appointment. Medication response: Taking buprenorphine as directed. Denies any specific complaints or missed doses. Side effects from medication: denies any side effects from the buprenorphine, tolerating it well. Stressors/Triggers: doing well overall managing stressors well started new job Cravings. minimal Psychiatry: stable Review of systems: Denies suicidal or homicidal ideation denies tactile auditory or visual hallucinations All of systems ROS was completed and was negative unless stated above Objective Physical Exam Constitutional: General: He is not in acute distress. Appearance: He is not diaphoretic. HENT: Head: Normocephalic and atraumatic. Nose: No rhinorrhea. Cardiovascular: Rate and Rhythm: Normal rate. Pulmonary: Effort: Pulmonary effort is normal. No respiratory distress. Neurological: Mental Status: He is alert and oriented to person, place, and time. Psychiatric: Attention and Perception: He does not perceive auditory or visual hallucinations. Behavior: Behavior is cooperative. Thought Content: Thought content does not include homicidal or suicidal ideation. Current Outpatient Medications Medication Sig Dispense Refill albuterol 108 (90 Base) MCG/ACT inhaler Inhale 2 puffs every 6 hours as needed for wheezing. 18 g 11 buprenorphine-naloxone (Suboxone) 8-[address] 1 tablet under the tongue daily for 28 days. 28 tablet 0 cloNIDine (Catapres) 0.1 MG tablet Take 1 tablet (0.1 mg) by mouth 2 times daily. 30 tablet 11 hydrOXYzine pamoate (Vistaril) 50 MG capsule Take 1 capsule (50 mg) by mouth every 6 hours as needed for allergies or anxiety. 90 capsule 6 metoprolol succinate XL (Toprol-XL) 25 MG 24 hr tablet Take 2 tablets (50 mg) by mouth daily. Do not crush or chew. 30 tablet 3 nicotine (Nicoderm CQ) 21 MG/24HR patch Place 1 patch on the skin Every 24 hours. 30 patch 0 OLANZapine (ZyPREXA) 5 MG tablet Take 1 tablet (5 mg) by mouth Nightly. (Patient taking differently: Take 7.5 mg by mouth Nightly.) 30 tablet 6 omeprazole (PriLOSEC) [address] capsule Take 1 capsule (20 mg) by mouth every morning (before breakfast). Do not crush or chew. 30 capsule 6 ondansetron ODT (Zofran-ODT) 4 MG disintegrating tablet Take 1 tablet (4 mg) by mouth every 8 hoursas needed for nausea or vomiting. 30 tablet 3 traZODone (Desyrel) 50 MG tablet Take 2 tablets (100 mg) by mouth Nightly. 30 tablet 6 No current facility-administered medications for this visit. OARRS: Reviewed and no inconsistencies or concerns Urine Drug Screen/THC/Buprenorphine level: negative/positive/positive ---> 03/18/23 Assessment & Plan Substance dependence disorder 1. Severe opioid use disorder (HCC) - continue current plan patient stable in recovery - buprenorphine-naloxone (Suboxone) 8-2 MG SL tablet; Place 1 tablet under the tongue daily for 28 days. Dispense: 28 tablet; Refill: 0 Patient Goals: 1. Continue 12-step meeting attendance (goal of 2 per week). 2. Actively communicate with sponsor. 3. Take medication as directed and report any negative side effects or missed doses. 4. Report any illicit drug use to either the briefcase sewer or myself/my staff. 5. Keep medicine out of the reach of children. 6. Follow-up with recommended level of care. Interventions in Session: 1. Discussed patient's progress in their 12-step program. 2. Discussed progress in recovery and overall well-being. 3. Discussed stressors/triggers for a potential relapse & related coping mechanisms. Thiago Hilton DO Addiction Medicine 05/07/2023 at 12:59 PM Patient was identified and seen today via Telehealth by agreement and consent. I used the followingTelehealth technology: Audio capability only. Total length of call 15 minutes. The patient was offered and advised video for a more comprehensive evaluation, but the patient declined or was unable touse video. Patient location: Patient Location: Home. This patient encounter is appropriate and reasonable under the circumstances: Behavioral Health . The patient has been advised of the potentialrisks and limitations of this mode of treatment (including but not limited to the absence of in-person examination) and has agreed to be treated in a remote fashion in spite of them. Any and all of the patient's/patient's family's questions on this issue have been answered and I have made no promises or guarantees to the patient. The patient has also been advised to contact this office for worsening conditions or problems, and seek emergency medical treatment and/or call 911 if the patient deems either necessary. The patient stated that they are currently in the [facility]. If the patient is a minor, permission has been obtained by the parent or guardian for the patient to receive medical care at this visit. documented in this [facility]03-20-2024 History of Present illness Narrative* Thiago Hilton DO - 04/29/2023 3:00 PM EDT PATIENT: Roro Valdivia Chief complaint Seen for follow up of substance dependence/use disorder, evalutae the sobriety progress and to monitor withdrawals Subjective Roro Valdivia, a 37 y.o. male, who presents for a follow-up MAT appointment. Medication response: Taking buprenorphine as directed. Denies any specific complaints or missed doses. Side effects from medication: denies any side effects from the buprenorphine, tolerating it well. Stressors/Triggers: doing well overall managing stressors well started new job Cravings. minimal Psychiatry: stable Review of systems: Denies suicidal or homicidal ideation denies tactile auditory or visual hallucinations All of systems ROS was completed and was negative unless stated above Objective Physical Exam Constitutional: General: He is not in acute distress. Appearance: He is not diaphoretic. HENT: Head: Normocephalic and atraumatic. Nose: No rhinorrhea. Cardiovascular: Rate and Rhythm: Normal rate. Pulmonary: Effort: Pulmonary effort is normal. No respiratory distress. Neurological: Mental Status: He is alert and oriented to person, place, and time. Psychiatric: Attention and Perception: He does not perceive auditory or visual hallucinations. Behavior: Behavior is cooperative. Thought Content: Thought content does not include homicidal or suicidal ideation. Current Outpatient Medications Medication Sig Dispense Refill albuterol 108 (90 Base) MCG/ACT inhaler Inhale 2 puffs every 6 hours as needed for wheezing. 18 g 11 buprenorphine-naloxone (Suboxone) 8-[address] 1 tablet under the tongue daily for 28 days. 28 tablet 0 cloNIDine (Catapres) 0.1 MG tablet Take 1 tablet (0.1 mg) by mouth 2 times daily. 30 tablet 11 hydrOXYzine pamoate (Vistaril) 50 MG capsule Take 1 capsule (50 mg) by mouth every 6 hours as needed for allergies or anxiety. 90 capsule 6 metoprolol succinate XL (Toprol-XL) 25 MG 24 hr tablet Take 2 tablets (50 mg) by mouth daily. Do not crush or chew. 30 tablet 3 nicotine (Nicoderm CQ) 21 MG/24HR patch Place 1 patch on the skin Every 24 hours. 30 patch 0 OLANZapine (ZyPREXA) 5 MG tablet Take 1 tablet (5 mg) by mouth Nightly. (Patient taking differently: Take 7.5 mg by mouth Nightly.) 30 tablet 6 omeprazole (PriLOSEC) [address] capsule Take 1 capsule (20 mg) by mouth every morning (before breakfast). Do not crush or chew. 30 capsule 6 ondansetron ODT (Zofran-ODT) 4 MG disintegrating tablet Take 1 tablet (4 mg) by mouth every 8 hoursas needed for nausea or vomiting. 30 tablet 3 traZODone (Desyrel) 50 MG tablet Take 2 tablets (100 mg) by mouth Nightly. 30 tablet 6 No current facility-administered medications for this visit. OARRS: Reviewed and no inconsistencies or concerns Urine Drug Screen/THC/Buprenorphine level: negative/positive/positive ---> 03/18/23 Assessment & Plan Substance dependence disorder 1. Severe opioid use disorder (HCC) - continue current plan patient stable in recovery - buprenorphine-naloxone (Suboxone) 8-2 MG SL tablet; Place 1 tablet under the tongue daily for 28 days. Dispense: 28 tablet; Refill: 0 Patient Goals: 1. Continue 12-step meeting attendance (goal of 2 per week). 2. Actively communicate with sponsor. 3. Take medication as directed and report any negative side effects or missed doses. 4. Report any illicit drug use to either the briefcase sewer or myself/my staff. 5. Keep medicine out of the reach of children. 6. Follow-up with recommended level of care. Interventions in Session: 1. Discussed patient's progress in their 12-step program. 2. Discussed progress in recovery and overall well-being. 3. Discussed stressors/triggers for a potential relapse & related coping mechanisms. Thiago Hilton DO Addiction Medicine 05/07/2023 at 12:59 PM Patient was identified and seen today via Telehealth by agreement and consent. I used the followingTelehealth technology: Audio capability only. Total length of call 15 minutes. The patient was offered and advised video for a more comprehensive evaluation, but the patient declined or was unable touse video. Patient location: Patient Location: Home. This patient encounter is appropriate and reasonable under the circumstances: Behavioral Health . The patient has been advised of the potentialrisks and limitations of this mode of treatment (including but not limited to the absence of in-person examination) and has agreed to be treated in a remote fashion in spite of them. Any and all of the patient's/patient's family's questions on this issue have been answered and I have made no promises or guarantees to the patient. The patient has also been advised to contact this office for worsening conditions or problems, and seek emergency medical treatment and/or call 911 if the patient deems either necessary. The patient stated that they are currently in the state [facility]. If the patient is a minor, permission has been obtained by the parent or guardian for the patient to receive medical care at this visit. Associated attestation - Stone Ramsey MD - 05/11/2023 3:57 PM EDT Patient seen and examined by me. Discussed patient with the resident/fellow/KOBY. Agree with assessment and plan as written. I did counseling, coordinating care and provided discussion regarding this patient's condition ,chemical dependency, psychiatric and medical history, symptoms and signs , reviewing past detoxification hospitalizations, assessing withdrawal status, evaluating detoxification medications, and discussing lab work and treatment plan ,importance of compliance with the treatment with providing options, as well as documenting on the day of the visit. STONE RAMSEY MD 05/11/23 3:57 PM documented in this [facility]02-07-2024 History of Present illness Narrative* Thiago Hilton DO - 03/18/2023 2:00 PM EST PATIENT: Roro Valdivia Chief complaint Seen for follow up of substance dependence/use disorder, evalutae the sobriety progress and to monitor withdrawals Subjective Roro Valdivia, a 37 y.o. male, who presents for a follow-up MAT appointment. Medication response: Taking buprenorphine as directed. Denies any specific complaints or missed doses. Had dose decreased to 8 mg while at [facility]. Side effects from medication: denies any side effects from the buprenorphine, tolerating it well. Stressors/Triggers: denies states he has been doing extremely well now that his torrettes is under better control and is no longer having panic attacks Cravings. Denies states 8 mg dose is doing well Psychiatry: doing well on current medication regimen Other: [facility] went very well states he actually misses being there. Going to meetings Sober date: 02/12/23 showed to ED for detox positive alcohol, coke, benzos Review of systems: Denies suicidal or homicidal ideation denies tactile auditory or visual hallucinations All of systems ROS was completed and was negative unless stated above Objective Physical Exam Constitutional: General: He is not in acute distress. Appearance: He is not diaphoretic. HENT: Head: Normocephalic and atraumatic. Nose: No rhinorrhea. Cardiovascular: Rate and Rhythm: Normal rate. Pulmonary: Effort: Pulmonary effort is normal. No respiratory distress. Neurological: Mental Status: He is alert and oriented to person, place, and time. Psychiatric: Attention and Perception: He does not perceive auditory or visual hallucinations. Behavior: Behavior is cooperative. Thought Content: Thought content does not include homicidal or suicidal ideation. Current Outpatient Medications Medication Sig Dispense Refill albuterol 108 (90 Base) MCG/ACT inhaler Inhale 2 puffs every 6 hours as needed for wheezing. 18 g 11 buprenorphine-naloxone (Suboxone) 8-[address] 1 tablet under the tongue daily for 21 days. 21 tablet 0 cloNIDine (Catapres) 0.1 MG tablet Take 1 tablet (0.1 mg) by mouth 2 times daily. 30 tablet 11 hydrOXYzine pamoate (Vistaril) 50 MG capsule Take 1 capsule (50 mg) by mouth every 6 hours as needed for allergies or anxiety. 90 capsule 6 metoprolol succinate XL (Toprol-XL) 25 MG 24 hr tablet Take 2 tablets (50 mg) by mouth daily. Do not crush or chew. 30 tablet 3 nicotine (Nicoderm CQ) 21 MG/24HR patch Place 1 patch on the skin Every 24 hours. 30 patch 0 OLANZapine (ZyPREXA) 5 MG tablet Take 1 tablet (5 mg) by mouth Nightly. (Patient taking differently: Take 7.5 mg by mouth Nightly.) 30 tablet 6 omeprazole (PriLOSEC) [address] capsule Take 1 capsule (20 mg) by mouth every morning (before breakfast). Do not crush or chew. 30 capsule 6 ondansetron ODT (Zofran-ODT) 4 MG disintegrating tablet Take 1 tablet (4 mg) by mouth every 8 hoursas needed for nausea or vomiting. 30 tablet 3 traZODone (Desyrel) 50 MG tablet Take 2 tablets (100 mg) by mouth Nightly. 30 tablet 6 No current facility-administered medications for this visit. OARRS: Reviewed and no inconsistencies or concerns Assessment & Plan Substance dependence disorder 1. Severe opioid use disorder (HCC) 2. Palpitations Orders Placed This Encounter Procedures MEDICATION ASSISTED TREATMENT PANEL 1. Severe opioid use disorder (HCC) - MEDICATION ASSISTED TREATMENT PANEL - buprenorphine-naloxone (Suboxone) 8-2 MG SL tablet; Place 1 tablet under the tongue daily for 21 days. Dispense: 21 tablet; Refill: 0 2. Palpitations - metoprolol succinate XL (Toprol-XL) 25 MG 24 hr tablet; Take 2 tablets (50 mg) by mouth daily. Donot crush or chew. Dispense: 30 tablet; Refill: 3 Patient Goals: 1. Continue 12-step meeting attendance (goal of 2 per week). 2. Actively communicate with sponsor. 3. Take medication as directed and report any negative side effects or missed doses. 4. Report any illicit drug use to either the briefcase sewer or myself/my staff. 5. Keep medicine out of the reach of children. 6. Follow-up with recommended level of care. Interventions in Session: 1. Discussed patient's progress in their 12-step program. 2. Discussed progress in recovery and overall well-being. 3. Discussed stressors/triggers for a potential relapse & related coping mechanisms. Follow up in 3 weeks Thiago Hilton DO Addiction Medicine 03/18/2023 at 2:03 PM Associated attestation - Stone Ramsey MD - 03/19/2023 3:30 PM EST Patient seen and examined by me. Discussed patient with the resident/fellow/KOBY. Agree with assessment and plan as written. I did counseling, coordinating care and provided discussion regarding this patient's condition ,chemical dependency, psychiatric and medical history, symptoms and signs , reviewing past detoxification hospitalizations, assessing withdrawal status, evaluating detoxification medications, and discussing lab work and treatment plan ,importance of compliance with the treatment with providing options, as well as documenting on the day of the visit. STONE RAMSEY MD 03/19/23 3:30 PM documented in this [place] [id number] History of Present illness Narrative* Thiago Paige Lida, DO - 03/18/2023 2:00 PM EST PATIENT: Roro Valdivia Chief complaint Seen for follow up of substance dependence/use disorder, evalutae the sobriety progress and to monitor withdrawals Subjective Roro Valdivia, a 37 y.o. male, who presents for a follow-up MAT appointment. Medication response: Taking buprenorphine as directed. Denies any specific complaints or missed doses. Had dose decreased to 8 mg while at [facility]. Side effects from medication: denies any side effects from the buprenorphine, tolerating it well. Stressors/Triggers: denies states he has been doing extremely well now that his torrettes is under better control and is no longer having panic attacks Cravings. Denies states 8 mg dose is doing well Psychiatry: doing well on current medication regimen Other: [facility] went very well states he actually misses being there. Going to meetings Sober date: 02/12/23 showed to ED for detox positive alcohol, coke, benzos Review of systems: Denies suicidal or homicidal ideation denies tactile auditory or visual hallucinations All of systems ROS was completed and was negative unless stated above Objective Physical Exam Constitutional: General: He is not in acute distress. Appearance: He is not diaphoretic. HENT: Head: Normocephalic and atraumatic. Nose: No rhinorrhea. Cardiovascular: Rate and Rhythm: Normal rate. Pulmonary: Effort: Pulmonary effort is normal. No respiratory distress. Neurological: Mental Status: He is alert and oriented to person, place, and time. Psychiatric: Attention and Perception: He does not perceive auditory or visual hallucinations. Behavior: Behavior is cooperative. Thought Content: Thought content does not include homicidal or suicidal ideation. Current Outpatient Medications Medication Sig Dispense Refill albuterol 108 (90 Base) MCG/ACT inhaler Inhale 2 puffs every 6 hours as needed for wheezing. 18 g 11 buprenorphine-naloxone (Suboxone) 8-[address] 1 tablet under the tongue daily for 21 days. 21 tablet 0 cloNIDine (Catapres) 0.1 MG tablet Take 1 tablet (0.1 mg) by mouth 2 times daily. 30 tablet 11 hydrOXYzine pamoate (Vistaril) 50 MG capsule Take 1 capsule (50 mg) by mouth every 6 hours as needed for allergies or anxiety. 90 capsule 6 metoprolol succinate XL (Toprol-XL) 25 MG 24 hr tablet Take 2 tablets (50 mg) by mouth daily. Do not crush or chew. 30 tablet 3 nicotine (Nicoderm CQ) 21 MG/24HR patch Place 1 patch on the skin Every 24 hours. 30 patch 0 OLANZapine (ZyPREXA) 5 MG tablet Take 1 tablet (5 mg) by mouth Nightly. (Patient taking differently: Take 7.5 mg by mouth Nightly.) 30 tablet 6 omeprazole (PriLOSEC) [address] capsule Take 1 capsule (20 mg) by mouth every morning (before breakfast). Do not crush or chew. 30 capsule 6 ondansetron ODT (Zofran-ODT) 4 MG disintegrating tablet Take 1 tablet (4 mg) by mouth every 8 hoursas needed for nausea or vomiting. 30 tablet 3 traZODone (Desyrel) 50 MG tablet Take 2 tablets (100 mg) by mouth Nightly. 30 tablet 6 No current facility-administered medications for this visit. OARRS: Reviewed and no inconsistencies or concerns Assessment & Plan Substance dependence disorder 1. Severe opioid use disorder (HCC) 2. Palpitations Orders Placed This Encounter Procedures MEDICATION ASSISTED TREATMENT PANEL 1. Severe opioid use disorder (HCC) - MEDICATION ASSISTED TREATMENT PANEL - buprenorphine-naloxone (Suboxone) 8-2 MG SL tablet; Place 1 tablet under the tongue daily for 21 days. Dispense: 21 tablet; Refill: 0 2. Palpitations - metoprolol succinate XL (Toprol-XL) 25 MG 24 hr tablet; Take 2 tablets (50 mg) by mouth daily. Donot crush or chew. Dispense: 30 tablet; Refill: 3 Patient Goals: 1. Continue 12-step meeting attendance (goal of 2 per week). 2. Actively communicate with sponsor. 3. Take medication as directed and report any negative side effects or missed doses. 4. Report any illicit drug use to either the briefcase sewer or myself/my staff. 5. Keep medicine out of the reach of children. 6. Follow-up with recommended level of care. Interventions in Session: 1. Discussed patient's progress in their 12-step program. 2. Discussed progress in recovery and overall well-being. 3. Discussed stressors/triggers for a potential relapse & related coping mechanisms. Follow up in 3 weeks Thiago Hilton DO Addiction Medicine 03/18/2023 at 2:03 PM Associated attestation - Stone Ramsey MD - 03/23/2023 3:08 PM EST Patient seen and examined by me. Discussed patient with the resident/fellow/KOBY. Agree with assessment and plan as written. I did counseling, coordinating care and provided discussion regarding this patient's condition ,chemical dependency, psychiatric and medical history, symptoms and signs , reviewing past detoxification hospitalizations, assessing withdrawal status, evaluating detoxification medications, and discussing lab work and treatment plan ,importance of compliance with the treatment with providing options, as well as documenting on the day of the visit. For patient palpitation he is prescribed beta blocke and would like a refill for that so will resume till his pcp take over STONE RAMSEY MD 03/19/23 3:30 PM documented in this [facility]01-22-2024 Telephone encounter Note* Telephone Encounter - Fabiana Murray - 03/02/2023 7:16 AM EST [facility] the [id number] Misc[facility] Notes* Telephone Encounter - Fabiana Murray - 03/02/2023 7:16 AM EST Pharmacy Requested the following medication documented in this [facility]11-30-2023 History of Present illness Narrative* Erin Arce MD - 01/08/2023 1:27 PM EST Patient had repeat Quantiferon test that showed a normal TB1 at 35 (previous value of 0.65) and a slightly elevated TB2 of 0.47 (previous value of 0.96) - test was reported as positive but this is a very low positive value of questionable certainty. Because of discrepancy in tests, with very low values, would favor repeating test in 2 mos (script sent to home with test date of Mar 12, 2023) If still positive, will treat documented in this [facility]11-29-2023 History of Present illness Narrative* Erin Arce MD - 01/07/2023 8:00 AM EST Images from the original note were not included. [facility] Infectious Diseases Attending Outpatient Consult Note Reason for Consult: Positive Quantiferon test Requesting Physician: Dr JOSE J Milian Chief Complaint Patient presents with New Patient New pt here for positive quantiferon HISTORY OF PRESENT ILLNESS The patient is a 37 y.o. man with presents because of screening Quantiferon test for TB while at a sober house. He is currently in treatment, at [facility], with Suboxone for polysubstance abuse including opiates,cocaine, and alcohol, and is counseling and meetings. He has a history of incarceration (several times), Tourette's, panic disorder, GERD, tobaccoism, and pancreatitis. He states that 7 of 35 men at his sober house have a positive Quantiferon test. He denies exposure to TB as a youth, and states that he has had neg PPD skin tests while he was incarcerated (both times), the last time being about 8 yrs ago. He denies any symptoms of persistent cough, unexplained weight loss or fevers, nor any bloody sputum. Since being on Suboxone, and after withdraw from multiple substances, including alcohol (his drug of choice), he has recently had some loss of appetite and weight loss, but is not sure if it is from the treatment. There has been chronic smoking of cigarettes, crack cocaine and meth in his recent past and he admits to severe deconditioning as well, so his SOB when playing basketball may be multifactorial. His CXR showed a few small granuloma by my inspection but no cavitary disease or pleural thickening. We discussed that the other things he smoked could also lead to lung disease in addition to smoking. He also has been diagnosed with steatosis and had a high BMI over 30 (currently 32 even after weight loss) as well as very heavy long standing alcohol use with 2 episodes of severe pancreatitis. We had an extensive discussion of how Tuberculosis infection is acquired (often without a defined exposure) but that this is a low incidence area and he has not traveled to an area where the infection rate is high, and has never been homeless but incarceration is a risk factor as residential housing. We discussed the difference between active and Latent TB and that Latent TB reactivates in 5-10% ofpeople, highest in those who have suppressed immune systems from autoimmune diseases, medications that suppress the immune system including chemotherapy and transplant medication as well as biologicsfor autoimmune disease, and with advanced aging and multiple co-morbidities. There was also a detailed explanation of the difference between PPD and IGRA testing and the pros an cons of IGRA testing, including the high rate of undecipherable results if drawn and transported inappropriately. The steps of IGRA testing and what is being examined (interferon release from the T helper cells that recognize infectious organisms if they have encountered them in the past) was explained in detail We discussed types of treatment and if the repeat testing we do today is still positive for latent TB, he would like to be treated with weekly INH 900 mg with Rifapentine (10 mg/kg) for 12 wks. I discussed that I would call and talk to him if this were necessary. Past Medical History: Diagnosis Date Alcohol withdrawal with inpatient treatment, uncomplicated (HCC) 03/15/2022 GERD (gastroesophageal reflux disease) History of pancreatitis 01/07/2023 Hypertension Pancreatitis Seizures (HCC) SVT (supraventricular tachycardia) Tourette syndrome Past Surgical History: Procedure Laterality Date APPENDECTOMY Current Outpatient Medications Medication Sig Dispense Refill albuterol 108 (90 Base) MCG/ACT inhaler Inhale 2 puffs every 6 hours as needed for wheezing. 18 g 11 cloNIDine (Catapres) 0.1 MG tablet Take 1 tablet (0.1 mg) by mouth 2 times daily. 30 tablet 11 hydrOXYzine pamoate (Vistaril) 50 MG capsule Take 1 capsule (50 mg) by mouth every 6 hours as needed for allergies or anxiety. 90 capsule 6 metoprolol succinate XL (Toprol-XL) 25 MG 24 hr tablet Take 1 tablet (25 mg) by mouth daily. Do notcrush or chew. (Patient taking differently: Take 50 mg by mouth daily. Do not crush or chew.) 30 tablet 0 OLANZapine (ZyPREXA) 5 MG tablet Take 1 tablet (5 mg) by mouth Nightly. (Patient taking differently: Take 7.5 mg by mouth Nightly.) 30 tablet 6 omeprazole (PriLOSEC) [address] capsule Take 1 capsule (20 mg) by mouth every morning (before breakfast). Do not crush or chew. 30 capsule 6 ondansetron ODT (Zofran-ODT) 4 MG disintegrating tablet Take 1 tablet (4 mg) by mouth every 8 hoursas needed for nausea or vomiting. 30 tablet 3 traZODone (Desyrel) 50 MG tablet Take 2 tablets (100 mg) by mouth Nightly. 30 tablet 6 acamprosate (Campral) 333 MG EC tablet Take 2 tablets (666 mg) by mouth 3 times daily. Do not crush, chew, or split. (Patient not taking: Reported on 01/07/2023) 180 tablet 1 nicotine (Nicoderm CQ) 21 MG/24HR patch Place 1 patch on the skin Every 24 hours. 30 patch 0 nicotine (Nicoderm, Step 1) 21 MG/24HR patch Place 1 patch on the skin Every 24 hours. (Patient nottaking: Reported on 01/07/2023) 30 patch 11 sertraline (Zoloft) 25 MG tablet Take 1 tablet (25 mg) by mouth daily. (Patient not taking: Reported on 01/07/2023) 30 tablet 6 No current facility-administered medications for this visit. No Known Allergies Social History Socioeconomic History Marital status: Single Spouse name: Not on file Number of children: Not on file Years of education: Not on file Highest education level: Not on file Occupational History Not on file Tobacco Use Smoking status: Every Day Packs/day: 1 Types: Cigarettes Smokeless tobacco: Never Vaping Use Vaping Use: Never used Substance and Sexual Activity Alcohol use: Not Currently Comment: 1 liter black velvet and a case of beer per day Drug use: Not Currently Types: Cocaine, Methamphetamines, Oxycodone, Fentanyl, Heroin, Benzodiazepines Sexual activity: Not Currently Other Topics Concern Not on file Social History Narrative Not on file Social Determinants of Health Financial Resource Strain: High Risk (11/04/2022) Overall Financial Resource Strain (CARDIA) Difficulty of Paying Living Expenses: Very hard Food Insecurity: Food Insecurity Present (11/04/2022) Hunger Vital Sign Worried About Running Out of Food in the Last Year: Often true Ran Out of Food in the Last Year: Often true Transportation Needs: Unmet Transportation Needs (11/04/2022) PRAPARE - Transportation Lack of Transportation (Medical): Yes Lack of Transportation (Non-Medical): Yes Physical Activity: Inactive (11/04/2022) Exercise Vital Sign Days of Exercise per Week: 0 days Minutes of Exercise per Session: 0 min Stress: Stress Concern Present (11/04/2022) [employer] - Occupational Stress Questionnaire Feeling of Stress : To some extent Social Connections: Unknown (11/04/2022) Social Connection and Isolation Panel [NHANES] Frequency of Communication with Friends and Family: Patient refused Frequency of Social Gatherings with Friends and Family: Patient refused Attends [employer] Services: Patient refused Active Member of Clubs or Organizations: Patient refused Attends Club or Organization Meetings: Patient refused Marital Status: Patient refused Intimate Partner Violence: Not At Risk (11/04/2022) Humiliation, Afraid, Rape, and Kick questionnaire Fear of Current or Ex-Partner: No Emotionally Abused: No Physically Abused: No Sexually Abused: No Housing Stability: High Risk (11/04/2022) Housing Stability Vital Sign Unable to Pay for Housing in the Last Year: Yes Number of Places Lived in the Last Year: 0 Unstable Housing in the Last Year: Yes Family History Problem Relation Name Age of Onset No Known Problems Mother No Known Problems Father Review of Systems Constitutional: Positive for appetite change. Getting more exercise Poor appetite Fatigue notable but staying active No fevers HENT: Negative. Eyes: Negative. Respiratory: Positive for shortness of breath. Negative for choking and wheezing. Admits to SOB with sports but not with normal activities and walking Cardiovascular: Negative. Gastrointestinal: Negative. Negative for abdominal pain and nausea. Endocrine: Negative. Genitourinary: Negative. Musculoskeletal: Negative. Skin: Negative for color change, rash and wound. Neurological: Positive for tremors. Negative for dizziness, seizures, speech difficulty, weakness, light-headedness and numbness. Has Tourette's syndrome Hematological: Negative for adenopathy. Does not bruise/bleed easily. Psychiatric/Behavioral: Positive for behavioral problems and sleep disturbance. The patient is nervous/anxious. Vitals: 01/07/23 0805 BP: 124/78 BP Location: Right arm Patient Position: Sitting BP Cuff Size: Adult Pulse: 64 Temp: 36.3 C (97.3 F) TempSrc: Temporal SpO2: 98% Weight: 245 lb (111 kg) Height: 6' 1 (1.854 m) Physical Exam Vitals and nursing note reviewed. Constitutional: Comments: Appears in several layers of clothes and wears hoody over head while in the warm exam room with coat on. Poor eye contact noted, appears nervous, but very co-operative and appears to answer questions honestly Good hygiene In NAD Not ill appearing nor toxic appearing. Asks good questions and seems to understand discussion with good comprehension HENT: Head: Normocephalic and atraumatic. Nose: Nose normal. No congestion or rhinorrhea. Mouth/Throat: Mouth: Mucous membranes are moist. Pharynx: No oropharyngeal exudate or posterior oropharyngeal erythema. Comments: Poor dentition Eyes: Extraocular Movements: Extraocular movements intact. Pupils: Pupils are equal, round, and reactive to light. Cardiovascular: Rate and Rhythm: Normal rate and regular rhythm. Pulses: Normal pulses. Heart sounds: Normal heart sounds. No murmur heard. Pulmonary: Effort: Pulmonary effort is normal. Breath sounds: Normal breath sounds. No wheezing or rales. Abdominal: Palpations: Abdomen is soft. Tenderness: There is no abdominal tenderness. There is no right CVA tenderness or left CVA tenderness. Comments: Obese, soft, with no organomegaly or masses and no obvious tenderness on palpation Musculoskeletal: General: Normal range of motion. Cervical back: Normal range of motion and neck supple. No rigidity or tenderness. Right lower leg: No edema. Left lower leg: No edema. Lymphadenopathy: Cervical: No cervical adenopathy. Skin: General: Skin is warm and dry. Neurological: General: No focal deficit present. Mental Status: He is alert and oriented to person, place, and time. Motor: No weakness. Psychiatric: Thought Content: Thought content normal. Judgment: Judgment normal. Admission on 12/16/2022, Discharged on 12/16/2022 Component Date Value Ref Range Status SODIUM 12/16/2022 135 135 - 145 mmol/L Final POTASSIUM 12/16/2022 4.4 3.5 - 5.1 mmol/L Final CHLORIDE 12/16/2022 102 98 - 107 mmol/L Final CARBON DIOXIDE 12/16/2022 25 22 - 30 mmol/L Final UREA NITROGEN 12/16/2022 11 9 - 20 mg/dL Final CREATININE 12/16/2022 0.74 0.66 - 1.25 mg/dL Final GLUCOSE 12/16/2022 96 70 - 100 mg/dL Final CALCIUM 12/16/2022 9.3 8.4 - 10.4 mg/dL Final ANION GAP 12/16/2022 9 3 - 13 mmol/L Final eGFR 12/16/2022 >90.0 >60.0 mL/min/1.73m*2 Final Auto WBC 12/16/2022 6.6 3.6 - 10.7 10*3/uL Final RBC 12/16/2022 4.38 (L) 4.40 - 5.90 10*6/uL Final Hemoglobin 12/16/2022 13.0 13.0 - 18.0 g/dL Final Hematocrit 12/16/2022 39.0 (L) 40.0 - 52.0 % Final MCV 12/16/2022 89.0 80.0 - 98.0 fL Final MCH 12/16/2022 29.7 26.0 - 34.0 pg Final MCHC 12/16/2022 33.4 32.0 - 36.0 % Final RDW 12/16/2022 12.7 11.5 - 14.5 % Final Platelets 12/16/2022 272 140 - 440 10*3/uL Final MPV 12/16/2022 7.6 7.4 - 12.4 fL Final Antibiotics: none ASSESSMENT & Plan: Diagnosis Plan 1. Positive 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 Quantiferon repeat Although he has been incarcerated, he has no other risk factors for TB, and since there were such ahigh rate of positives at his treatment center, and since reliable test results require proper drawing of the blood, no agitation of the samples, rapid transport and testing w/I 12 hrs of drawing sample, it is important to verify the positive results before treatment 2. Polysubstance use disorder Currently on Suboxone and no urges to use drugs 3. Panic disorder improved 4. Alcohol abuse - admits that he is not sure that he can stay abstinent from alcohol the rest of his life- we discussed this at length and the health risks he is facing if he drinks again S/p pancreatitis- admits to chronic abdominal pain 5. Tourette syndrome 6. SVT (supraventricular tachycardia) 7. History of pancreatitis x2 I spent total time 65 minutes caring for this patient today,including reviewing the medical record including history of other medical problems, labs, records from another facility, interviewing and examining the patient and documenting, writing orders (prescriptions/meds), and instructing the patient on self care. Erin Arce MD, MD, FACP documented in this [facility]11-29-2023 History of Present illness Narrative* Erin Arce MD - 01/07/2023 8:00 AM EST Images from the original note were not included. [facility] Infectious Diseases Attending Outpatient Consult Note Reason for Consult: Positive Quantiferon test Requesting Physician: Dr JOSE J Milian Chief Complaint Patient presents with New Patient New pt here for positive quantiferon HISTORY OF PRESENT ILLNESS The patient is a 37 y.o. man with presents because of screening Quantiferon test for TB while at a sober house. Noted TB1 of .065 and TB 2 of 0.96 (normal is less than 0.35, and definitively positiveis >0.9) He is currently in treatment, at [facility], with Suboxone for polysubstance abuse including opiates,cocaine, and alcohol, and is counseling and meetings. He has a history of incarceration (several times), Tourette's, panic disorder, GERD, tobaccoism, and pancreatitis. He states that 7 of 35 men at his sober house have a positive Quantiferon test. He denies exposure to TB as a youth, and states that he has had neg PPD skin tests while he was incarcerated (both times), the last time being about 8 yrs ago. He denies any symptoms of persistent cough, unexplained weight loss or fevers, nor any bloody sputum. Since being on Suboxone, and after withdraw from multiple substances, including alcohol (his drug of choice), he has recently had some loss of appetite and weight loss, but is not sure if it is from the treatment. There has been chronic smoking of cigarettes, crack cocaine and meth in his recent past and he admits to severe deconditioning as well, so his SOB when playing basketball may be multifactorial. His CXR showed a few small granuloma by my inspection but no cavitary disease or pleural thickening. We discussed that the other things he smoked could also lead to lung disease in addition to smoking. He also has been diagnosed with steatosis and had a high BMI over 30 (currently 32 even after weight loss) as well as very heavy long standing alcohol use with 2 episodes of severe pancreatitis. We had an extensive discussion of how Tuberculosis infection is acquired (often without a defined exposure) but that this is a low incidence area and he has not traveled to an area where the infection rate is high, and has never been homeless but incarceration is a risk factor as residential housing. We discussed the difference between active and Latent TB and that Latent TB reactivates in 5-10% ofpeople, highest in those who have suppressed immune systems from autoimmune diseases, medications that suppress the immune system including chemotherapy and transplant medication as well as biologicsfor autoimmune disease, and with advanced aging and multiple co-morbidities. There was also a detailed explanation of the difference between PPD and IGRA testing and the pros an cons of IGRA testing, including the high rate of undecipherable results if drawn and transported inappropriately. The steps of IGRA testing and what is being examined (interferon release from the T helper cells that recognize infectious organisms if they have encountered them in the past) was explained in detail We discussed types of treatment and if the repeat testing we do today is still positive for latent TB, he would like to be treated with weekly INH 900 mg with Rifapentine (10 mg/kg) for 12 wks. I discussed that I would call and talk to him if this were necessary. Past Medical History: Diagnosis Date Alcohol withdrawal with inpatient treatment, uncomplicated (HCC) 03/15/2022 GERD (gastroesophageal reflux disease) History of pancreatitis 01/07/2023 Hypertension Pancreatitis Seizures (HCC) SVT (supraventricular tachycardia) Tourette syndrome Past Surgical History: Procedure Laterality Date APPENDECTOMY Current Outpatient Medications Medication Sig Dispense Refill albuterol 108 (90 Base) MCG/ACT inhaler Inhale 2 puffs every 6 hours as needed for wheezing. 18 g 11 cloNIDine (Catapres) 0.1 MG tablet Take 1 tablet (0.1 mg) by mouth 2 times daily. 30 tablet 11 hydrOXYzine pamoate (Vistaril) 50 MG capsule Take 1 capsule (50 mg) by mouth every 6 hours as needed for allergies or anxiety. 90 capsule 6 metoprolol succinate XL (Toprol-XL) 25 MG 24 hr tablet Take 1 tablet (25 mg) by mouth daily. Do notcrush or chew. (Patient taking differently: Take 50 mg by mouth daily. Do not crush or chew.) 30 tablet 0 OLANZapine (ZyPREXA) 5 MG tablet Take 1 tablet (5 mg) by mouth Nightly. (Patient taking differently: Take 7.5 mg by mouth Nightly.) 30 tablet 6 omeprazole (PriLOSEC) [address] capsule Take 1 capsule (20 mg) by mouth every morning (before breakfast). Do not crush or chew. 30 capsule 6 ondansetron ODT (Zofran-ODT) 4 MG disintegrating tablet Take 1 tablet (4 mg) by mouth every 8 hoursas needed for nausea or vomiting. 30 tablet 3 traZODone (Desyrel) 50 MG tablet Take 2 tablets (100 mg) by mouth Nightly. 30 tablet 6 acamprosate (Campral) 333 MG EC tablet Take 2 tablets (666 mg) by mouth 3 times daily. Do not crush, chew, or split. (Patient not taking: Reported on 01/07/2023) 180 tablet 1 nicotine (Nicoderm CQ) 21 MG/24HR patch Place 1 patch on the skin Every 24 hours. 30 patch 0 nicotine (Nicoderm, Step 1) 21 MG/24HR patch Place 1 patch on the skin Every 24 hours. (Patient nottaking: Reported on 01/07/2023) 30 patch 11 sertraline (Zoloft) 25 MG tablet Take 1 tablet (25 mg) by mouth daily. (Patient not taking: Reported on 01/07/2023) 30 tablet 6 No current facility-administered medications for this visit. No Known Allergies Social History Socioeconomic History Marital status: Single Spouse name: Not on file Number of children: Not on file Years of education: Not on file Highest education level: Not on file Occupational History Not on file Tobacco Use Smoking status: Every Day Packs/day: 1 Types: Cigarettes Smokeless tobacco: Never Vaping Use Vaping Use: Never used Substance and Sexual Activity Alcohol use: Not Currently Comment: 1 liter black velvet and a case of beer per day Drug use: Not Currently Types: Cocaine, Methamphetamines, Oxycodone, Fentanyl, Heroin, Benzodiazepines Sexual activity: Not Currently Other Topics Concern Not on file Social History Narrative Not on file Social Determinants of Health Financial Resource Strain: High Risk (11/04/2022) Overall Financial Resource Strain (CARDIA) Difficulty of Paying Living Expenses: Very hard Food Insecurity: Food Insecurity Present (11/04/2022) Hunger Vital Sign Worried About Running Out of Food in the Last Year: Often true Ran Out of Food in the Last Year: Often true Transportation Needs: Unmet Transportation Needs (11/04/2022) PRAPARE - Transportation Lack of Transportation (Medical): Yes Lack of Transportation (Non-Medical): Yes Physical Activity: Inactive (11/04/2022) Exercise Vital Sign Days of Exercise per Week: 0 days Minutes of Exercise per Session: 0 min Stress: Stress Concern Present (11/04/2022) [employer] - Occupational Stress Questionnaire Feeling of Stress : To some extent Social Connections: Unknown (11/04/2022) Social Connection and Isolation Panel [NHANES] Frequency of Communication with Friends and Family: Patient refused Frequency of Social Gatherings with Friends and Family: Patient refused Attends Amish Services: Patient refused Active Member of Clubs or Organizations: Patient refused Attends Club or Organization Meetings: Patient refused Marital Status: Patient refused Intimate Partner Violence: Not At Risk (11/04/2022) Humiliation, Afraid, Rape, and Kick questionnaire Fear of Current or Ex-Partner: No Emotionally Abused: No Physically Abused: No Sexually Abused: No Housing Stability: High Risk (11/04/2022) Housing Stability Vital Sign Unable to Pay for Housing in the Last Year: Yes Number of Places Lived in the Last Year: 0 Unstable Housing in the Last Year: Yes Family History Problem Relation Name Age of Onset No Known Problems Mother No Known Problems Father Review of Systems Constitutional: Positive for appetite change. Getting more exercise Poor appetite Fatigue notable but staying active No fevers HENT: Negative. Eyes: Negative. Respiratory: Positive for shortness of breath. Negative for choking and wheezing. Admits to SOB with sports but not with normal activities and walking Cardiovascular: Negative. Gastrointestinal: Negative. Negative for abdominal pain and nausea. Endocrine: Negative. Genitourinary: Negative. Musculoskeletal: Negative. Skin: Negative for color change, rash and wound. Neurological: Positive for tremors. Negative for dizziness, seizures, speech difficulty, weakness, light-headedness and numbness. Has Tourette's syndrome Hematological: Negative for adenopathy. Does not bruise/bleed easily. Psychiatric/Behavioral: Positive for behavioral problems and sleep disturbance. The patient is nervous/anxious. Vitals: 01/07/23 0805 BP: 124/78 BP Location: Right arm Patient Position: Sitting BP Cuff Size: Adult Pulse: 64 Temp: 36.3 C (97.3 F) TempSrc: Temporal SpO2: 98% Weight: 245 lb (111 kg) Height: 6' 1 (1.854 m) Physical Exam Vitals and nursing note reviewed. Constitutional: Comments: Appears in several layers of clothes and wears hoody over head while in the warm exam room with coat on. Poor eye contact noted, appears nervous, but very co-operative and appears to answer questions honestly Good hygiene In NAD Not ill appearing nor toxic appearing. Asks good questions and seems to understand discussion with good comprehension HENT: Head: Normocephalic and atraumatic. Nose: Nose normal. No congestion or rhinorrhea. Mouth/Throat: Mouth: Mucous membranes are moist. Pharynx: No oropharyngeal exudate or posterior oropharyngeal erythema. Comments: Poor dentition Eyes: Extraocular Movements: Extraocular movements intact. Pupils: Pupils are equal, round, and reactive to light. Cardiovascular: Rate and Rhythm: Normal rate and regular rhythm. Pulses: Normal pulses. Heart sounds: Normal heart sounds. No murmur heard. Pulmonary: Effort: Pulmonary effort is normal. Breath sounds: Normal breath sounds. No wheezing or rales. Abdominal: Palpations: Abdomen is soft. Tenderness: There is no abdominal tenderness. There is no right CVA tenderness or left CVA tenderness. Comments: Obese, soft, with no organomegaly or masses and no obvious tenderness on palpation Musculoskeletal: General: Normal range of motion. Cervical back: Normal range of motion and neck supple. No rigidity or tenderness. Right lower leg: No edema. Left lower leg: No edema. Lymphadenopathy: Cervical: No cervical adenopathy. Skin: General: Skin is warm and dry. Neurological: General: No focal deficit present. Mental Status: He is alert and oriented to person, place, and time. Motor: No weakness. Psychiatric: Thought Content: Thought content normal. Judgment: Judgment normal. Admission on 12/16/2022, Discharged on 12/16/2022 Component Date Value Ref Range Status SODIUM 12/16/2022 135 135 - 145 mmol/L Final POTASSIUM 12/16/2022 4.4 3.5 - 5.1 mmol/L Final CHLORIDE 12/16/2022 102 98 - 107 mmol/L Final CARBON DIOXIDE 12/16/2022 25 22 - 30 mmol/L Final UREA NITROGEN 12/16/2022 11 9 - 20 mg/dL Final CREATININE 12/16/2022 0.74 0.66 - 1.25 mg/dL Final GLUCOSE 12/16/2022 96 70 - 100 mg/dL Final CALCIUM 12/16/2022 9.3 8.4 - 10.4 mg/dL Final ANION GAP 12/16/2022 9 3 - 13 mmol/L Final eGFR 12/16/2022 >90.0 >60.0 mL/min/1.73m*2 Final Auto WBC 12/16/2022 6.6 3.6 - 10.7 10*3/uL Final RBC 12/16/2022 4.38 (L) 4.40 - 5.90 10*6/uL Final Hemoglobin 12/16/2022 13.0 13.0 - 18.0 g/dL Final Hematocrit 12/16/2022 39.0 (L) 40.0 - 52.0 % Final MCV 12/16/2022 89.0 80.0 - 98.0 fL Final MCH 12/16/2022 29.7 26.0 - 34.0 pg Final MCHC 12/16/2022 33.4 32.0 - 36.0 % Final RDW 12/16/2022 12.7 11.5 - 14.5 % Final Platelets 12/16/2022 272 140 - 440 10*3/uL Final MPV 12/16/2022 7.6 7.4 - 12.4 fL Final Antibiotics: none ASSESSMENT & Plan: Diagnosis Plan 1. Positive 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 Quantiferon repeat Although he has been incarcerated, he has no other risk factors for TB, and since there were such ahigh rate of positives at his treatment center, and since reliable test results require proper drawing of the blood, no agitation of the samples, rapid transport and testing w/I 12 hrs of drawing sample, it is important to verify the positive results before treatment 2. Polysubstance use disorder Currently on Suboxone and no urges to use drugs 3. Panic disorder improved 4. Alcohol abuse - admits that he is not sure that he can stay abstinent from alcohol the rest of his life- we discussed this at length and the health risks he is facing if he drinks again S/p pancreatitis- admits to chronic abdominal pain 5. Tourette syndrome 6. SVT (supraventricular tachycardia) 7. History of pancreatitis x2 I spent total time 65 minutes caring for this patient today,including reviewing the medical record including history of other medical problems, labs, records from another facility, interviewing and examining the patient and documenting, writing orders (prescriptions/meds), and instructing the patient on self care. Erin Arce MD, MD, FACP documented in this [facility]11-07-2023 Hospital Discharge instructions* Discharge Instructions* Tania Payne DO - 12/16/2022 11:44 PM EST We have referred you to see infectious disease outpatient. Follow-up with them as soon as possible to go over future treatment options for your positive TB test. As you can follow-up with your primary care doctor as needed. documented in this [facility]11-07-2023 Emergency department Note* Jovita Thompson RN - 12/16/2022 10:52 PM EST Pt to CT. Jovita Thompson RN 12/16/222251 [id number]* Jovita Thompson RN - 12/16/2022 10:52 PM EST Pt to CT. Jovita Thompson RN 12/16/222251 * Jovita Thompson RN - 12/16/2022 6:04 PM EST Report to JOSE GUADALUPE Garland. Jovita Thompson RN 12/16/22 1805 * Duong Milian MD - 12/16/2022 2:19 PM EST Emergency Department Encounter [facility] EMERGENCY DEPT Patient: Roro Valdivia : 1985 Date of Evaluation: 12/16/2022 ED Supervising Physician: Duong Milian MD I independently examined and evaluated Roro Valdivia. This will serve as my Supervisory note and shared attestation. I did perform a substantive portion of the visit including all aspects of the Medical Decision Making. I wore appropriate PPE for the entirety of this encounter. In brief, Roro Valdivia is a 37 y.o. that presents to the emergency department with a positive QuantiFERON gold test Focused exam: Vitals are stable he is awake alert well-appearing in no acute distress Brief ED course/MDM: Patient presenting with a positive QuantiFERON gold test. Vitals are stable. No cough or other symptoms at this time plan to get a chest x-ray and if normal suspect patient has latent TB and was prescribed isoniazid. All diagnostic, treatment, and disposition decisions were made by myself in conjunction with the [facility]. For all further details of the patient's emergency department visit, please see their documentation. (Comment: Please note this report has been produced using speech recognition software and may contain errors related to that system including errors in grammar, punctuation, and spelling, as well as words and phrases that may be inappropriate. If there are any questions or concerns please feel freeto contact the dictating provider for clarification.) Duong Milian MD [facility] Spoke with ID since he is having night sweats they are recommending a CT scan of the chest if normal he can go home and if its positive would need admission for work-up of active tuberculosis. Patient will be placed in a negative pressure room. Doung Milian MD 12/16/22 1711 * Smita Garsia RN - 12/16/2022 2:19 PM EST Bed: 05 Expected date: Expected time: Means of arrival: Comments: LIANET Garsia RN 12/16/22 1639 documented in this [facility]11-07-2023 Emergency department Note* Jovita Thompson RN - 12/16/2022 6:04 PM EST Report to JOSE GUADALUPE Garland. Jovita Thompson RN 12/16/22 1805 [place] [id number] Emergency department Note* Smita Garsia RN - 12/16/2022 2:19 PM EST Bed: 05 Expected date: Expected time: Means of arrival: Comments: LIANET Garsia RN 12/16/22 1639 [place] [id number] Physician Emergency department Note* Duong Milian MD - 12/16/2022 2:19 PM EST Emergency Department Encounter [facility] EMERGENCY DEPT Patient: Roro Valdivia : 1985 Date of Evaluation: 12/16/2022 ED Supervising Physician: Duong Milian MD I independently examined and evaluated Roro Valdivia. This will serve as my Supervisory note and shared attestation. I did perform a substantive portion of the visit including all aspects of the Medical Decision Making. I wore appropriate PPE for the entirety of this encounter. In brief, Roro Valdivia is a 37 y.o. that presents to the emergency department with a positive QuantiFERON gold test Focused exam: Vitals are stable he is awake alert well-appearing in no acute distress Brief ED course/MDM: Patient presenting with a positive QuantiFERON gold test. Vitals are stable. No cough or other symptoms at this time plan to get a chest x-ray and if normal suspect patient has latent TB and was prescribed isoniazid. All diagnostic, treatment, and disposition decisions were made by myself in conjunction with the [facility]. For all further details of the patient's emergency department visit, please see their documentation. (Comment: Please note this report has been produced using speech recognition software and may contain errors related to that system including errors in grammar, punctuation, and spelling, as well as words and phrases that may be inappropriate. If there are any questions or concerns please feel freeto contact the dictating provider for clarification.) Duong Milian MD [facility] Spoke with ID since he is having night sweats they are recommending a CT scan of the chest if normal he can go home and if its positive would need admission for work-up of active tuberculosis. Patient will be placed in a negative pressure room. Duong Milian MD 12/16/22 1711 [email or web address] Phone: [phone] History of Present illness Narrative* Thiago Hilton, - 12/10/2022 2:30 PM EDT Images from the original note were not included. MEDICATION ASSISTED TREATMENT BUPRENORPHINE FOLLOW-UP VISIT Patient: Roro Valdivia __ SUBJECTIVE Chief Complaint Patient presents with Addiction Problem Roro Valdivia, a 37 y.o. male, returns for a follow-up medication-assisted treatment appointment. Interim History [facility] would not accept given he was on suboxone. Now at [facility] which is going well. Continues to have almost daily alcohol cravings and is very worried about getting car and more privilages back because he is scarred he will relapse MAT Response Dose: 12mg daily [facility] now prescribing . Stopped campral Start Date: 11/04/22. Compliance: Taking as directed. No missed doses. Side Effects: No. Drug Cravings: No. Withdrawal Symptoms: No. Ready to Taper Off MAT: No. Substance Use History Sober Date: 11/04/22. Intensive Outpatient Program: Endorses prior (court-ordered) CD IOP through [facility].. [facility] 12-Step Meeting Attendance: has gone in the past. Psychiatric History Diagnoses: Panic disorder without agoraphobia; Tourette disorder. Medications: see med list. Psychiatrist: seeing psych [facility]. Counselor: [facility] . Past Medical History Past Medical History: Diagnosis Date Alcohol withdrawal with inpatient treatment, uncomplicated (HCC) 03/15/2022 GERD (gastroesophageal reflux disease) Hypertension Pancreatitis Seizures (HCC) SVT (supraventricular tachycardia) (CMS/HCC) (HCC) Tourette syndrome Social Determinants of Health Tobacco Use: High Risk (11/04/2022) Patient History Smoking Tobacco Use: Every Day Smokeless Tobacco Use: Never Passive Exposure: Not on file Alcohol Use: Alcohol Misuse (11/04/2022) AUDIT-C Frequency of Alcohol Consumption: 4 or more times a week Average Number of Drinks: 10 or more Frequency of Binge Drinking: Daily or almost daily Financial Resource Strain: High Risk (11/04/2022) Overall Financial Resource Strain (CARDIA) Difficulty of Paying Living Expenses: Very hard Food Insecurity: Food Insecurity Present (11/04/2022) Hunger Vital Sign Worried About Running Out of Food in the Last Year: Often true Ran Out of Food in the Last Year: Often true Transportation Needs: Unmet Transportation Needs (11/04/2022) PRAPARE - Transportation Lack of Transportation (Medical): Yes Lack of Transportation (Non-Medical): Yes Physical Activity: Inactive (11/04/2022) Exercise Vital Sign Days of Exercise per Week: 0 days Minutes of Exercise per Session: 0 min Stress: Stress Concern Present (11/04/2022) [employer] - Occupational Stress Questionnaire Feeling of Stress : To some extent Social Connections: Unknown (11/04/2022) Social Connection and Isolation Panel [NHANES] Frequency of Communication with Friends and Family: Patient refused Frequency of Social Gatherings with Friends and Family: Patient refused Attends [employer]ish Services: Patient refused Active Member of Clubs or Organizations: Patient refused Attends Club or Organization Meetings: Patient refused Marital Status: Patient refused Intimate Partner Violence: Not At Risk (11/04/2022) Humiliation, Afraid, Rape, and Kick questionnaire Fear of Current or Ex-Partner: No Emotionally Abused: No Physically Abused: No Sexually Abused: No Depression: Mild depression (11/04/2022) PHQ-9 PHQ-9 Score: 7 Housing Stability: High Risk (11/04/2022) Housing Stability Vital Sign Unable to Pay for Housing in the Last Year: Yes Number of Places Lived in the Last Year: 0 Unstable Housing in the Last Year: Yes Utilities: Not on file OBJECTIVE Controlled Substance Monitoring OARRs Reviewed. Review of Systems Review of Systems Constitutional: Negative for chills, diaphoresis and fatigue. HENT: Negative for drooling and rhinorrhea. Eyes: Negative for visual disturbance. Respiratory: Negative for shortness of breath. Gastrointestinal: Negative for abdominal pain, diarrhea, nausea and vomiting. Musculoskeletal: Negative for arthralgias and myalgias. Skin: Negative for rash and wound. Neurological: Negative for tremors and seizures. Psychiatric/Behavioral: Negative for agitation, confusion, hallucinations and suicidal ideas. The patient is not nervous/anxious. Vitals There were no vitals taken for this visit. Physical Exam Constitutional: General: He is not in acute distress. Appearance: He is not diaphoretic. HENT: Head: Normocephalic and atraumatic. Nose: No rhinorrhea. Cardiovascular: Rate and Rhythm: Normal rate. Pulmonary: Effort: Pulmonary effort is normal. No respiratory distress. Neurological: Mental Status: He is alert and oriented to person, place, and time. Psychiatric: Attention and Perception: He does not perceive auditory or visual hallucinations. Behavior: Behavior is cooperative. Thought Content: Thought content does not include homicidal or suicidal ideation. ASSESSMENT 1. Gastroesophageal reflux disease without esophagitis 2. Anxiety 3. Alcohol-induced insomnia (CMS/HCC) ([facility]) 4. Severe opioid use disorder ([facility]) PLAN Medications Ordered New Medications Ordered This Visit Medications omeprazole (PriLOSEC) [address] capsule Sig: Take 1 capsule (20 mg) by mouth every morning (before breakfast). Do not crush or chew. Dispense: 30 capsule Refill: 6 hydrOXYzine pamoate (Vistaril) 50 MG capsule Sig: Take 1 capsule (50 mg) by mouth every 6 hours as needed for allergies or anxiety. Dispense: 90 capsule Refill: 6 traZODone (Desyrel) 50 MG tablet Sig: Take 2 tablets (100 mg) by mouth Nightly. Dispense: 30 tablet Refill: 6 Labs Ordered No orders of the defined types were placed in this encounter. Patient Goals Continue 12-step meeting attendance (goal of 2 per week). Actively communicate with sponsor. Take medication as directed. Report any negative side effects or missed doses. Report any illicit drug use to myself/my staff. Keep medicine out of the reach of children. Follow-up with recommended level of care. Interventions in Session Discussed patient's progress in their 12-step program. Discussed progress in recovery and overall well-being. Discussed stressors/triggers for a potential relapse. Discussed related coping mechanisms. Discussed buprenorphine efficacy. Follow-Up Will follow up once out of [facility] Associated attestation - Carlitos Orta MD - 12/12/2022 2:13 PM EDT Indirect Supervision Attestation During or immediately after this visit, I discussed this case with the treating fellow. Our discussion included the history obtained by the fellow, the fellow's exam findings, and the fellow's treatment plan. I agree with the assessment and plan as documented in the fellow's note (and any addendum's are listed below). Please see fellow s note for further details. This service has been performed by a fellow without the presence of a teaching physician under the primary care exception (GE Modifier). documented in this [facility]10-12-2023 NoteHNO ID: [id number] Author: Constance Padilla, DO Service: ? Author Type: Resident Type: Progress Notes Filed: 12/08/2022 3:26 PM Note Text: [facility] RESIDENT [facility]INIC INITIAL PSYCHIATRIC EVALUATION PATIENT: Roro Valdivia MRD: [id number] DATE: November 20, 2022 IDENTIFYING INFORMATION: Roro is a 37 year old male with a history of polysubstance use, opioid use disorder alcohol use disorder, anxiety, Tourette's syndrome, benzodiazepine abuse, fentanyl, crack cocaine use disorder. CHIEF COMPLAINT: 2 problems- panic attacks HPI: On interview today, patient reports they present to [facility] for anxiety and panic attacks and tourettes. He describes that he was recently discharged from detox, currently staying at a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 as an adolescent. Education/Work: Patient reports that he dropped at high school is in the 10th grade due to his ongoing partying. Patient reports however he was able to get his GED while he was in the [facility]. Patient reports he is not currently working. Patient denies SI/SSD. Cultural/Spirituality/Leisure: Patient denies any cultural needs or concerns at the current time. Patient denies any scientologist preference at the current time. Patient reports that he is not attending services anywhere currently. Patient reports he enjoys leisure activities in the past such as camping. C-SSRS Actual Attempt (Past 3 Months): No (Patient has history of psychiatric admission. Amount of admissions is unknown at current time due to patient's guarded self reporting. Patient denies any recent history of suicide attempts) Actual Attempt (Lifetime): Yes (ED for a anxiety by OD (05/23/22). Patient was sent to [facility] then ultimately [facility] in [place] for stabilization. additional admissions to [facility]. Patient reports Hx of SI where he attempted to cut his wrists and someone called for assistance.) Interrupted Attempts (Past 3 Months): No (Patient denies) Interrupted Attempts (Lifetime): Yes (History of interrupted attempts) Aborted or Self-Interrupted Attempt (Past 3 Months): No (Patient denies) Aborted or Self-Interrupted Attempt (Lifetime): Yes (History of self aborted attempt) Preparatory Acts or Behavior (Past 3 Months): No (Patient denies) Preparatory Acts or Behavior (Lifetime): Yes (History of preparatory acts including gathering medication for overdose and items to cut self with.) Has subject engaged in non-suicidal self-injurious behavior? (Past 3 Months): No (Patient denies any recent history of SIB) Has subject engaged in non-suicidal self-injurious behavior? (Lifetime): Yes (Patient does report past history of SIB) Suicidal Ideation: Wish to be (Patient denies current SI/HI/AVH. Patient does report history of passive SI secondary to intoxication. Patient reports having increased feelings of wishes to be but denies plan, intent, or method.) Activating Events (Recent): Recent loss(es) or other significant negative event(s) (legal, financial, relationship, etc.) Describe:: Ongoing struggles with substance use disorder. Feelings of loneliness and isolation. Lack of housing stability. Treatment History: Previous psychiatric diagnoses and treatments, Not receiving treatment, Non-compliant with treatment (Patient has a mental health diagnosis of depression, anxiety, and PTSD. Patient has a history of being on Zoloft but no medication currently. He reports recent history of Zyprexa. Patient is not currently engaged with OP Tx. Hx with of [facility].) Clinical Status (Recent): Hopelessness, Agitation or severe anxiety, Substance abuse or dependence,Major depressive episode, Perceived burden on family or others, Highly impulsive behavior (Risk factors) Protective Factors (Recent): Identifies reasons for living, Responsibility to family or others and/or living with family, Supportive social network or family (Protective factors) Describe any suicidal, self-injurious or aggressive behavior (include dates): Patient has history of psychiatric admission. Amount of admissions is unknown at current time due to patient's guarded self reporting. Patient was most recently seen in the ED for a suicide attempt by overdose (05/23/22). Patient was sent to [facility] then ultimately generations in [place] for stabilization. Patient has additional admissions to [facility]. Patient reports past history of suicide attempt where he attempted to cut his wrists some years ago and someone called for assistance for him thus interrupting his attempt. Patient denies current SI/HI/AVH. Patient does report history of passive SI secondary to intoxication. Patient reports having increased feelings of wishes to be but denies plan, intent, or method. Patient denies any recent history of SIB. Patient does report past history of SIB. Patient has amental health diagnosis of depression, anxiety, and PTSD. Patient has a history of being on Zoloft but no medication currently. Patient is not currently engaged with outpatient mental health treatment. Patient has a past history of [facility]. . Plan: Patient reports that his plan is to attend residential treatment at [facility] to help with his uncle. Patient and [facility] continue work together to establish a plan based on patient's aftercare needs. DENTAL SPECIALIST will assist with reaching out to residential placement. Patient is encouraged to engage in all activities that are offered and lies on the unit. Patient did not identify any additional needs or concerns at current time. Patient encouraged to seek out [facility] unit staff should he identify any additional needs or concerns. Comment: Please note this report has been produced using speech recognition software and may contain errors related to that system including errors in grammar, punctuation, and spelling, as well as words and phrases that may be inappropriate. If there are any questions or concerns please feel free to contact the dictating provider for clarification. * Care Plan - Elen Rico RN - 11/04/2022 6:01 AM EDT Problem: Ineffective Coping Goal: Cooperates with admission process Outcome: Progressing Goal: Identifies ineffective coping skills Outcome: Progressing Goal: Identifies healthy coping skills Outcome: Progressing Goal: Demonstrates healthy coping skills Outcome: Progressing Goal: Participates in unit activities Outcome: Progressing Goal: Patient/Family participate in treatment and discharge plans Outcome: Progressing Goal: Patient/Family verbalizes awareness of resources Outcome: Progressing Goal: Understands least restrictive measures Outcome: Progressing Goal: Free from restraint events Outcome: Progressing Problem: Potential for Substance Withdrawal Goal: Verbalizes signs/symptoms of withdrawal Outcome: Progressing Goal: Reports signs/symptoms of withdrawal Outcome: Progressing Goal: Free of withdrawal symptoms Outcome: Progressing Problem: Anxiety Goal: Patient/family understands admission protocols Outcome: Progressing Goal: Attempts to manage anxiety with help Outcome: Progressing Goal: Verbalizes ways to manage anxiety Outcome: Progressing Goal: Implements measures to reduce anxiety Outcome: Progressing Goal: Free from restraint events Outcome: Progressing Problem: Safety - Adult Goal: Free from fall injury Outcome: Progressing Problem: Safety Goal: Patient will be injury free during hospitalization Outcome: Progressing Goal: I will remain free of falls Outcome: Progressing Problem: Daily Care Goal: Daily care needs are met Outcome: Progressing * Care Plan - Elen Rico RN - 11/04/2022 5:59 AM EDT See care plan documented in this [facility]09-29-2023 History of Present illness Narrative* Baljinder James RN - 11/07/2022 8:47 PM EDT Pt up in day area, watching TV and working on drawings. Polite when engaged. Pt having some anxiety, but otherwise states he is doing well. Pt given PRN Vistaril for anxiety and PRN Trazodone to encourage sleep. Pt agrees to seek staff as needed. Will continue to monitor. * Emilia Berry RN - 11/07/2022 5:00 PM EDT Patient is A&O x4, up steady, out in day room part of the day. He is eating well and compliant with medications. Suboxone started. Blood drawn per order. CIWA and COWS monitored. * Thiago Hilton DO - 11/07/2022 9:40 AM EDT Images from the original note were not included. ADDICTION MEDICINE PROGRESS NOTE Patient: Roro Valdivia __ Problem List: Principal Problem: Alcohol withdrawal syndrome without complication (HCC) Active Problems: Polysubstance use disorder Benzodiazepine withdrawal with complication (HCC) Opioid withdrawal (HCC) Amphetamine withdrawal (HCC) SUBJECTIVE Chief Complaint Patient presents with Addiction Problem Detox ETOH, fentanyl, heroin. Drinks 1/2 gallon of liquor daily Last 4 CIWA scores per RN assessments 0 - 1 - 1 - 1 Last 4 COWS scores per RN assessments 0 - 1 - 1 - 1 Interim History Patient doing well today. Desires to start campral as well for alcohol cravings. Discussed startingsuboxone today and to alert us if he has worsening symptoms Review of Systems Review of Systems Constitutional: Negative for chills, diaphoresis and fatigue. HENT: Negative for drooling and rhinorrhea. Eyes: Negative for visual disturbance. Respiratory: Negative for shortness of breath. Gastrointestinal: Negative for abdominal pain, diarrhea, nausea and vomiting. Musculoskeletal: Negative for arthralgias and myalgias. Skin: Negative for rash and wound. Neurological: Negative for tremors and seizures. Psychiatric/Behavioral: Negative for agitation, confusion, hallucinations and suicidal ideas. The patient is not nervous/anxious. OBJECTIVE Vitals Vitals: 11/06/22 2028 11/06/22 2316 11/06/22 2317 11/07/22 0602 BP: 126/75 105/56 103/59 113/73 BP Location: Left arm Right arm Right arm Right arm Patient Position: Lying Lying Lying Lying Pulse: 68 64 62 56 Resp: 18 18 18 Temp: 36.4 C (97.6 F) 36.6 C (97.9 F) 36 C (96.8 F) TempSrc: Temporal Temporal Temporal SpO2: 98% 93% 97% Weight: Height: Physical Exam Constitutional: General: He is not in acute distress. Appearance: He is not diaphoretic. HENT: Head: Normocephalic and atraumatic. Nose: No rhinorrhea. Cardiovascular: Rate and Rhythm: Normal rate. Pulmonary: Effort: Pulmonary effort is normal. No respiratory distress. Neurological: Mental Status: He is alert and oriented to person, place, and time. Psychiatric: Attention and Perception: He does not perceive auditory or visual hallucinations. Behavior: Behavior is cooperative. Thought Content: Thought content does not include homicidal or suicidal ideation. Medications Home Meds Current Outpatient Medications Medication Instructions hydrOXYzine pamoate (VISTARIL) 25 mg, Oral, Every 6 hours PRN METOPROLOL SUCCINATE ER PO 25 mg, Oral, Daily, 2 tabs in the morning and 1 tab at night OLANZapine (ZYPREXA) 5 mg, Oral, Nightly omeprazole (PRILOSEC) 40 mg, Oral, Daily before breakfast, Do not crush or chew. sertraline (ZOLOFT) 25 mg, Oral, Daily Scheduled Inpatient Meds acamprosate, 666 mg, Oral, TID baclofen, 10 mg, Oral, q8h buprenorphine-naloxone, 1 Film, SubLINGual, Once cloNIDine, 0.1 mg, Oral, q8h folic acid, 1 mg, Oral, Daily metoprolol succinate XL, 25 mg, Oral, Daily nicotine, 1 patch, TransDERmal, Daily OLANZapine, 7.5 mg, Oral, Nightly pantoprazole, 40 mg, Oral, qAM AC PHENobarbital, 32.4 mg, Oral, q6h sertraline, 25 mg, Oral, Daily therapeutic multivitamin-minerals, 1 tablet, Oral, Daily thiamine, 100 mg, Oral, Daily PRN Inpatient Meds PRN medications: acetaminophen, aluminum & magnesium hydroxide-simethicone, dicyclomine, hydrOXYzine pamoate, loperamide, ondansetron ODT, traZODone Continuous Inpatient Infusions Recent Imaging No results found. Labs CBC: No results for input(s): WBC, HGB, PLT, MCV, RDW in the last 72 hours. BMP: No results for input(s): NA, K, CL, CO2, BUN, CREATININE, CALCIUM, MG, PHOS in the last 72 hours. Liver Profile: No results for input(s): AST, ALT, BILITOT, ALKPHOS, PROT, LIPASE, INRin the last 72 hours. No lab exists for component: LABALBU Glucose: No results for input(s): GLUCOSE, POCGLU in the last 72 hours. No lab exists for component: LABA1C Lactic Acid: No lab exists for component: LACTA Cardiac Injury Profile: No results for input(s): CKTOTAL, CKMB, TROPONINI in the last 72 hours. Last 24 Hours: No results found for this or any previous visit (from the past 24 hour(s)). ASSESSMENT & PLAN Polysubstance use disorder (ETOH, Meth/Coke, Benzos) Counseled patient on biopsychosocial consequences of substance use. Encouraged professional chemical dependency treatment. Encouraged 12 step meeting attendance. SW to finalize addiction treatment plan with patient: Desires [facility] to work with placement Plan for acceptance Thursday. Patient desires discharge Thursday to spend time with family prior to admission Suboxone 2mg today, will start campral this afternoon Prescriptions sent to meds to beds today so patient can leave with them tomorrow Alcohol and Benzodiazepine withdrawal Last use of alcohol and Benzo was on 11/03. Phenobarb taper to manage withdrawal symptoms. 32mg q 6 hours for today. CIWA scores per unit protocol. PRN medications for withdrawal symptom management added. Encouraged to participate in all unit activities. Fentanyl Withdrawal Last use of fentanyl was 11/03 Continue Tramadol taper COWS scores per protocol PRN medications ordered Panic disorder without agoraphobia Tourette disorder Restart zyprexa states was increased to 7.5mg recently, continue zoloft, clonidine, trazodone Psych consulted no acute changes Disposition: Discharge anticipated in 1 days. This is pending: Resolution of withdrawal symptoms. Medical stabilization. Labs/tests/tasks to review: suboxone trial. Nurse Ob recommendations: none. Associated attestation - Carlitos Orta MD - 11/07/2022 10:00 AM EDT I saw and evaluated the patient, participating in the erickson portions of the service. We reviewed the patient's medical record and test results. I personally spent over half of a total 35 minutes in counseling and discussion with the patient and coordination of care. This included a face to face evaluation and physical examination, and documenting clinical information on the day of visit. I have reviewed the fellow's note. I agree with the fellow s findings and plan. * Baljinder James RN - 11/07/2022 7:33 AM EDT Pt slept 7 hours throughout the night, pt had PRN Trazodone last evening. * Baljinder James RN - 11/06/2022 9:19 PM EDT Pt in his room. Pt is quiet, complains of anxiety, but denies other withdrawal symptoms. Pt is hopeful to start Suboxone on Thursday. Pt agrees to seek staff as needed. Pt given PRN Trazodone for sleep by his request. Will continue to monitor. * Thiago Hilton DO - 11/06/2022 2:07 PM EDT Images from the original note were not included. ADDICTION MEDICINE PROGRESS NOTE Patient: Roro Valdivia __ Problem List: Principal Problem: Alcohol withdrawal syndrome without complication (HCC) Active Problems: Polysubstance use disorder Benzodiazepine withdrawal with complication (HCC) Opioid withdrawal (HCC) Amphetamine withdrawal (HCC) SUBJECTIVE Chief Complaint Patient presents with Addiction Problem Detox ETOH, fentanyl, heroin. Drinks 1/2 gallon of liquor daily Last 4 CIWA scores per RN assessments Last 4 COWS scores per RN assessments Interim History Patient doing well today. Greatly desires to start suboxone prior to discharge. Discussed options and aftercare plan Review of Systems Review of Systems Constitutional: Negative for chills, diaphoresis and fatigue. HENT: Negative for drooling and rhinorrhea. Eyes: Negative for visual disturbance. Respiratory: Negative for shortness of breath. Gastrointestinal: Negative for abdominal pain, diarrhea, nausea and vomiting. Musculoskeletal: Negative for arthralgias and myalgias. Skin: Negative for rash and wound. Neurological: Negative for tremors and seizures. Psychiatric/Behavioral: Negative for agitation, confusion, hallucinations and suicidal ideas. The patient is not nervous/anxious. OBJECTIVE Vitals Vitals: 11/06/22 0900 11/06/22 1124 11/06/22 1326 11/06/22 1327 BP: 103/63 127/87 BP Location: Left arm Patient Position: Lying Pulse: 62 65 66 Resp: 16 Temp: 36.1 C (96.9 F) TempSrc: Temporal SpO2: 97% 99% Weight: 253 lb (115 kg) Height: Physical Exam Constitutional: General: He is not in acute distress. Appearance: He is not diaphoretic. HENT: Head: Normocephalic and atraumatic. Nose: No rhinorrhea. Cardiovascular: Rate and Rhythm: Normal rate. Pulmonary: Effort: Pulmonary effort is normal. No respiratory distress. Neurological: Mental Status: He is alert and oriented to person, place, and time. Psychiatric: Attention and Perception: He does not perceive auditory or visual hallucinations. Behavior: Behavior is cooperative. Thought Content: Thought content does not include homicidal or suicidal ideation. Medications Home Meds Current Outpatient Medications Medication Instructions hydrOXYzine pamoate (VISTARIL) 25 mg, Oral, Every 6 hours PRN METOPROLOL SUCCINATE ER PO 25 mg, Oral, Daily, 2 tabs in the morning and 1 tab at night OLANZapine (ZYPREXA) 5 mg, Oral, Nightly omeprazole (PRILOSEC) 40 mg, Oral, Daily before breakfast, Do not crush or chew. sertraline (ZOLOFT) 25 mg, Oral, Daily Scheduled Inpatient Meds baclofen, 10 mg, Oral, q8h cloNIDine, 0.1 mg, Oral, q8h folic acid, 1 mg, Oral, Daily metoprolol succinate XL, 25 mg, Oral, Daily nicotine, 1 patch, TransDERmal, Daily OLANZapine, 7.5 mg, Oral, Nightly pantoprazole, 40 mg, Oral, qAM AC PHENobarbital, 64.8 mg, Oral, q6h Followed by [START ON 11/07/2022] PHENobarbital, 32.4 mg, Oral, q6h sertraline, 25 mg, Oral, Daily therapeutic multivitamin-minerals, 1 tablet, Oral, Daily thiamine, 100 mg, Oral, Daily PRN Inpatient Meds PRN medications: acetaminophen, aluminum & magnesium hydroxide-simethicone, dicyclomine, hydrOXYzine pamoate, loperamide, ondansetron ODT, traZODone Continuous Inpatient Infusions Recent Imaging No results found. Labs CBC: Recent Labs 11/03/22 230 WBC 5.5 HGB 15.1 PLT 193 MCV 92.8 RDW 13.2 BMP: Recent Labs 11/03/222308 NA 146* K 4.6 CL 107 CO2 24 BUN 8* CREATININE 0.99 CALCIUM 9.4 Liver Profile: Recent Labs 11/03/222308 AST 169* ALT 118* BILITOT 0.5 ALKPHOS 99 PROT 9.1* Glucose: Recent Labs 09/25/23 2309 GLUCOSE 103* Lactic Acid: No lab exists for component: LACTA Cardiac Injury Profile: Recent Labs 11/03/222308 CKTOTAL 163 Last 24 Hours: No results found for this or any previous visit (from the past 24 hour(s)). ASSESSMENT & PLAN Polysubstance use disorder (ETOH, Meth/Coke, Benzos) Counseled patient on biopsychosocial consequences of substance use. Encouraged professional chemical dependency treatment. Encouraged 12 step meeting attendance. SW to finalize addiction treatment plan with patient: Desires [facility] to work with placement Plan for acceptance Thursday. Patient desires discharge Thursday to spend time with family prior to admission Will start suboxone tomorrow Alcohol and Benzodiazepine withdrawal Last use of alcohol and Benzo was on 11/03. Phenobarb taper to manage withdrawal symptoms. 64mg q 6 hours for today. CIWA scores per unit protocol. PRN medications for withdrawal symptom management added. Encouraged to participate in all unit activities. Fentanyl Withdrawal Last use of fentanyl was 11/03 Continue Tramadol taper COWS scores per protocol PRN medications ordered Panic disorder without agoraphobia Tourette disorder Restart zyprexa states was increased to 7.5mg recently, continue zoloft, clonidine, trazodone Psych consulted no acute changes Disposition: Discharge anticipated in 2 days. This is pending: Resolution of withdrawal symptoms. Medical stabilization. Labs/tests/tasks to review: suboxone trial. Nurse Ob recommendations: none. Associated attestation - Carlitos Orta MD - 11/07/2022 9:59 AM EDT I saw and evaluated the patient, participating in the erickson portions of the service. We reviewed the patient's medical record and test results. I personally spent over half of a total 35 minutes in counseling and discussion with the patient and coordination of care. This included a face to face evaluation and physical examination, and documenting clinical information on the day of visit. I have reviewed the fellow's note. I agree with the fellow s findings and plan. * Tana Sales RD - 11/06/2022 9:59 AM EDT Nutrition Assessment Type and Reason for Visit: Initial, RD Nutrition Re-Screen/LOS (Poor intake) Nutrition Recommendations/Plan: Recommend continue a Regular diet. Pt reports he is eating plenty with no issues aside from constipation (last BM 3 days ago). Recommend increase bowel regimen. Pt's weight stable, he reports a UBW of 230# (confirmed per chart) and RD obtained a bed weight of 253# which pt states is overestimating his weight (although there were minimal blankets/pillows on bed). He appears well nourished. He declines ONS. Pt is at low nutrition risk. Will sign off to DT at this time, RD is available upon request Malnutrition Assessment: Malnutrition Status: No malnutrition Nutrition Assessment: 37 y.o. year old male with a PMH of polysubstance dependence (alcohol, benzodiazepines, methamphetamine, cocaine, tobacco), panic disorder without agoraphobia, Tourette's disorder, SVT, HTN, GERD, pancreatitis, hepatic steatosis, and housing instability that was admitted for detox. He started using again almost immediately after [facility] discharge in June. Drinking 1 L of 80 proof liquor daily. Using 1mg benzos states used two tablets this past week. Using 1/2 g of fentanyl daily smoking, states thishas worsened over the last week. Also using crack cocaine 40$ worth this past week. Last use of these substances was 11/03 prior to arrival. UDS +amphetamines, fentanyl, benzos and a serum alcohol level was 0.191. Of note, pt also had a suicide attempt via overdose earlier this year on 05/23/2022. +Tramadol and Phenobarb taper. He was noted to have a poor appetite on 11/04. He is on a Regular diet. RD visited pt this AM. Pt with a flat affect but answered questions appropriately. He reports he iseating well here with no issues aside from being constipated. He reports his last BM was 3 days ago. He reports a normal intake and appetite [employer] at home since leaving [facility] in June 2022. He reports a UBW of 230#, he denies the stated weight of 210# per chart and states he does not feel like he has gained or lost weight. RD obtained a bed weight of 253# which pt does not feel is accurate. He states he weighs 240# at the most. He visually appears well nourished. Pt denies use of ONS at home and also declines them here as he is eating plenty. Estimated Daily Nutrient Needs: Energy Requirements Based On: Kcal/kg Weight Used for Energy Requirements: [place] Weight for Energy Calculation (kg): 75 kg Total Energy Requirements (kcals/day): 25-30 kcal/kg = 1142-7999 kcal/day Weight Used for Protein Requirements: [place] Weight in Kg Used for Protein Requirements: 75 kg Estimated Total Protein (g/day): 1.1-1.3 g/kg = 83-98 g/day Estimated Daily Total Fluid (ml/day): per MD Nutrition Related Findings: Froylan = 22, GI = nausea, no I/O, +Dentures (upper), Labs: Na 146, AST 169, ALT 118, Meds: Multivitamin Wound Type: None Current Nutrition Therapies: Adult diet Regular Current Oral Intake Average Meal Intake: 76-100% (Per patient. No documentation per flowsheets) Average Supplements Intake: None Ordered Anthropometric Measures: Height: 177.8 cm (5' 10) Current Body Weight: 95.3 kg (210 lb 1.6 oz) (11/04 stated) Admission Body Weight: 95.3 kg (210 lb 1.6 oz) (11/04 stated) Usual Body Weight: 104 kg (230 lb) (230# stated. Per chart: 07/10 230#, 05/02 235#, 01/27/22 230#) % Weight Change (Calculated): -8.7 [place] Body Weight (lbs) (Calculated): 166 lbs [place] Body Weight (Kg) (Calculated): 75 kg % [place] Body Weight (Calculated): 126.6 % BMI (kg/m2) (Calculated): 30.1 Weight Adjustment For: No Adjustment BMI Categories: Obese Class 1 (BMI 30.0-34.9) Nutrition Diagnosis: No nutrition diagnosis at this time Tana Sales RD Contact: *[id number] * Lashae Hartley RN - 11/06/2022 6:20 AM EDT Pt withdrawn to room. Pt compliant with medication and cooperative. Denies SI/HI/AVH and c/o minimal withdrawal symptoms. PRN Vistaril given for anxiety before bed. Effective. Pt encouraged to make needs known to staff. Safety checks maintained. * Emilia Berry RN - 11/05/2022 5:00 PM EDT Patient is A&O x4, cooperative, withdrawn to room. He is up steady, took a shower, is eating fair and compliant with medications. Encouraged to attend meetings. CIWA and COWS monitored. * Thiago Hilton DO - 11/05/2022 9:19 AM EDT Images from the original note were not included. ADDICTION MEDICINE PROGRESS NOTE Patient: Roro Valdivia __ Problem List: Principal Problem: Alcohol withdrawal syndrome without complication (HCC) Active Problems: Polysubstance use disorder Benzodiazepine withdrawal with complication (HCC) Opioid withdrawal (HCC) Amphetamine withdrawal (HCC) SUBJECTIVE Chief Complaint Patient presents with Addiction Problem Detox ETOH, fentanyl, heroin. Drinks 1/2 gallon of liquor daily Last 4 CIWA scores per RN assessments 2 - 3 - 4 - 4 Last 4 COWS scores per RN assessments 2 - 3 - 8 - 6 Interim History Doing better today, night time panic attacks improved. Withdrawal symptoms improved Review of Systems Review of Systems Constitutional: Negative for chills, diaphoresis and fatigue. HENT: Negative for drooling and rhinorrhea. Eyes: Negative for visual disturbance. Respiratory: Negative for shortness of breath. Gastrointestinal: Negative for abdominal pain, diarrhea, nausea and vomiting. Musculoskeletal: Negative for arthralgias and myalgias. Skin: Negative for rash and wound. Neurological: Negative for tremors and seizures. Psychiatric/Behavioral: Negative for agitation, confusion, hallucinations and suicidal ideas. The patient is not nervous/anxious. OBJECTIVE Vitals Vitals: 11/04/22 1724 11/04/22 2031 11/04/22 2317 11/05/22 0523 BP: 99/63 109/68 92/61 113/79 BP Location: Right arm Right arm Right arm Right arm Patient Position: Lying Lying Lying Lying Pulse: 58 70 54 59 Resp: 16 18 18 16 Temp: (!) 35.7 C (96.3 F) 36.3 C (97.4 F) (!) 35.3 C (95.6 F) 36.1 C (97 F) TempSrc: Temporal Temporal Temporal Temporal SpO2: 97% 96% 97% 95% Weight: Height: Physical Exam Constitutional: General: He is not in acute distress. Appearance: He is not diaphoretic. HENT: Head: Normocephalic and atraumatic. Nose: No rhinorrhea. Cardiovascular: Rate and Rhythm: Normal rate. Pulmonary: Effort: Pulmonary effort is normal. No respiratory distress. Neurological: Mental Status: He is alert and oriented to person, place, and time. Psychiatric: Attention and Perception: He does not perceive auditory or visual hallucinations. Behavior: Behavior is cooperative. Thought Content: Thought content does not include homicidal or suicidal ideation. Medications Home Meds Current Outpatient Medications Medication Instructions hydrOXYzine pamoate (VISTARIL) 25 mg, Oral, Every 6 hours PRN METOPROLOL SUCCINATE ER PO 25 mg, Oral, Daily, 2 tabs in the morning and 1 tab at night OLANZapine (ZYPREXA) 5 mg, Oral, Nightly omeprazole (PRILOSEC) 40 mg, Oral, Daily before breakfast, Do not crush or chew. sertraline (ZOLOFT) 25 mg, Oral, Daily Scheduled Inpatient Meds baclofen, 10 mg, Oral, q8h cloNIDine, 0.1 mg, Oral, q8h folic acid, 1 mg, Oral, Daily metoprolol succinate XL, 25 mg, Oral, Daily nicotine, 1 patch, TransDERmal, Daily OLANZapine, 7.5 mg, Oral, Nightly pantoprazole, 40 mg, Oral, qAM AC PHENobarbital, 97.2 mg, Oral, Q4H sertraline, 25 mg, Oral, Daily therapeutic multivitamin-minerals, 1 tablet, Oral, Daily thiamine, 100 mg, Oral, Daily traMADol, 100 mg, Oral, q6h Followed by [START ON 11/06/2022] traMADol, 100 mg, Oral, q8h PRN Inpatient Meds PRN medications: acetaminophen, aluminum & magnesium hydroxide-simethicone, dicyclomine, hydrOXYzine pamoate, loperamide, ondansetron ODT, traZODone Continuous Inpatient Infusions Recent Imaging No results found. Labs CBC: Recent Labs 11/03/229 WBC 5.5 HGB 15.1 PLT 193 MCV 92.8 RDW 13.2 BMP: Recent Labs 11/03/22 230 NA 146* K 4.6 CL 107 CO2 24 BUN 8* CREATININE 0.99 CALCIUM 9.4 Liver Profile: Recent Labs 11/03/222308 AST 169* ALT 118* BILITOT 0.5 ALKPHOS 99 PROT 9.1* Glucose: Recent Labs 11/03/222308 GLUCOSE 103* Lactic Acid: No lab exists for component: LACTA Cardiac Injury Profile: Recent Labs 11/03/222308 CKTOTAL 163 Last 24 Hours: No results found for this or any previous visit (from the past 24 hour(s)). ASSESSMENT & PLAN Polysubstance use disorder (ETOH, Meth/Coke, Benzos) Counseled patient on biopsychosocial consequences of substance use. Encouraged professional chemical dependency treatment. Encouraged 12 step meeting attendance. SW to finalize addiction treatment plan with patient: [facility] to work with placement Desires MAT will continue to discuss may be difficult depending on timing of [facility] placement and current fentanyl use Alcohol and Benzodiazepine withdrawal Last use of alcohol and Benzo was on 11/03. Phenobarb taper to manage withdrawal symptoms. 64mg q 6 hours for today. CIWA scores per unit protocol. PRN medications for withdrawal symptom management added. Encouraged to participate in all unit activities. Fentanyl Withdrawal Last use of fentanyl was 11/03 Continue Tramadol taper COWS scores per protocol PRN medications ordered Panic disorder without agoraphobia Tourette disorder Restart zyprexa states was increased to 7.5mg recently, continue zoloft, clonidine, trazodone Psych consulted no acute changes Disposition: Discharge anticipated in 3-4 days. This is pending: Resolution of withdrawal symptoms. Medical stabilization. Labs/tests/tasks to review: set up outpatient visit for MAT. Nurse Ob recommendations: none. Associated attestation - Carlitos Orta MD - 11/05/2022 1:22 PM EDT I saw and evaluated the patient, participating in the erickson portions of the service. We reviewed the patient's medical record and test results. I personally spent over half of a total 35 minutes in counseling and discussion with the patient and coordination of care. This included a face to face evaluation and physical examination, and documenting clinical information on the day of visit. I have reviewed the fellow's note. I agree with the fellow s findings and plan. Appreciate psychiatric consult and management. * Susan Charles - 11/05/2022 6:37 AM EDT POOR INTAKE Nutrition rescreen completed. Patient referred to the Dietitian. * Lashae Hartley RN - 11/05/2022 12:59 AM EDT Pt up independently but withdrawn to room. Pt compliant with medication and cooperative. Denies SI/HI/AVH. PRN Vistaril given for c/o anxiety before bed. Effective. Pt encouraged to make needs known to staff. Safety checks maintained. No complaints this morning. Reports sleeping well. * Elen Rico RN - 11/04/2022 4:41 AM EDT Pt arrived to unit via wheelchair. Pt ambulated to room by self. Speech slightly slurred, states it's from the ETOH use prior to arrival. Skin pink, clammy, warm. Pt C/O tactile disturbances and feeling as if skin is on fire. Pt presents with constant hiccups during entire encounter. States it does this every time I drink anything that's not water especially if it is cold. States use of cigarettes 1PPD, fentanyl/heroin unknown amount inhalation for the last 4 days, benzos pt states is rarely used but when it is it is mainly for the tourette's ticks, cocaine in which pt states is used the most frequent but only used a few times, meth is occasional use with last use x5 days ago, and oxyc odone a couple times a month because it's too expensive. Pt states use of [facility] on [facility]. States upon discharge, a family member in [place] will be paying for pt to attend a year longrehabilitation program which offers job placement during. Pt states said family member will be picking pt up from this facility. Pt states currently being homeless. Unable to complete admission assessment d/t pt having frequent bouts of emesis. Pt states that when pt usually gets here he is immediately and frequently dosed with Ativan. Pt educated that this nurse would contact MD with pt statement and hiccup concerns. Pt denies SI/HI. Unit paperwork signed by this nurse and pt. Pt oriented to room and unit upon arrival. Pt given call light within reach and encouraged to notify staff of any changes/needs that may arise. Pt verbalized understanding. documented in this [id number] Plan of care note* Care Plan - Emilia Berry RN - 11/07/2022 10:13 AM EDT Problem: Ineffective Coping Goal: Identifies ineffective coping skills Outcome: Progressing Goal: Identifies healthy coping skills Outcome: Progressing Goal: Demonstrates healthy coping skills Outcome: Progressing Goal: Participates in unit activities Outcome: Progressing Goal: Patient/Family participate in treatment and discharge plans Outcome: Progressing Goal: Patient/Family verbalizes awareness of resources Outcome: Progressing Problem: Potential for Substance Withdrawal Goal: Verbalizes signs/symptoms of withdrawal Outcome: Progressing Goal: Reports signs/symptoms of withdrawal Outcome: Progressing Goal: Free of withdrawal symptoms Outcome: Progressing Problem: Anxiety Goal: Attempts to manage anxiety with help Outcome: Progressing Goal: Verbalizes ways to manage anxiety Outcome: Progressing Goal: Implements measures to reduce anxiety Outcome: Progressing Problem: Safety - Adult Goal: Free from fall injury Outcome: Progressing Problem: Anxiety Goal: Will report anxiety at manageable levels Outcome: Progressing Problem: Drug Abuse/Detox Goal: Will have no detox symptoms and will verbalize plan for changing drug- related behavior Outcome: Progressing Problem: Safety Goal: Patient will be injury free during hospitalization Outcome: Progressing Goal: I will remain free of falls Outcome: Progressing Problem: Daily Care Goal: Daily care needs are met Outcome: Progressing [id number] Plan of care note* Care Plan - Baljinder James RN - 11/06/2022 10:31 PM EDT Problem: Ineffective Coping Goal: Identifies ineffective coping skills Outcome: Progressing Goal: Identifies healthy coping skills Outcome: Progressing Goal: Demonstrates healthy coping skills Outcome: Progressing Goal: Participates in unit activities Outcome: Progressing Goal: Patient/Family participate in treatment and discharge plans Outcome: Progressing Goal: Patient/Family verbalizes awareness of resources Outcome: Progressing Problem: Potential for Substance Withdrawal Goal: Verbalizes signs/symptoms of withdrawal Outcome: Progressing Goal: Reports signs/symptoms of withdrawal Outcome: Progressing Goal: Free of withdrawal symptoms Outcome: Progressing Problem: Anxiety Goal: Attempts to manage anxiety with help Outcome: Progressing Goal: Verbalizes ways to manage anxiety Outcome: Progressing Goal: Implements measures to reduce anxiety Outcome: Progressing Problem: Safety - Adult Goal: Free from fall injury Outcome: Progressing Problem: Anxiety Goal: Will report anxiety at manageable levels Outcome: Progressing The patient is Moderately Unstable - Medium risk of patient condition declining or worsening The patient's goals for the shift include none stated The clinical goals for the shift include goal met Over the shift, the patient did not make progress toward the following goals. Barriers to progression include nothing. Recommendations to address these barriers include nothing. [id number] Nurse Note* Fay Lara RN - 11/06/2022 4:47 PM EDT Mr. Valdivia has been in his room most of the day. He is out to order meals and walk in the [place] for short walks. His gait was observed steady. He has been in the day room to get beverages. Meetings encouraged. He has not attended any today. Reviewed medications available he voiced understanding. He has not required any PRN mediations so far this shift. [id number] Nurse procedure note* Code Documentation - Carlitos Orta MD - 11/06/2022 10:01 AM EDT CDI Query Per nursing assessment, patient documented to have a BMI of 30.13. But he has a: Normal body habitus [id number] Plan of care note* Care Plan - Emilia Berry RN - 11/05/2022 10:00 AM EDT Problem: Ineffective Coping Goal: Cooperates with admission process Outcome: Progressing Goal: Identifies ineffective coping skills Outcome: Progressing Goal: Identifies healthy coping skills Outcome: Progressing Goal: Demonstrates healthy coping skills Outcome: Progressing Goal: Participates in unit activities Outcome: Progressing Goal: Patient/Family participate in treatment and discharge plans Outcome: Progressing Goal: Patient/Family verbalizes awareness of resources Outcome: Progressing Goal: Understands least restrictive measures Outcome: Progressing Goal: Free from restraint events Outcome: Progressing Problem: Potential for Substance Withdrawal Goal: Verbalizes signs/symptoms of withdrawal Outcome: Progressing Goal: Reports signs/symptoms of withdrawal Outcome: Progressing Goal: Free of withdrawal symptoms Outcome: Progressing Problem: Anxiety Goal: Patient/family understands admission protocols Outcome: Progressing Goal: Attempts to manage anxiety with help Outcome: Progressing Goal: Verbalizes ways to manage anxiety Outcome: Progressing Goal: Implements measures to reduce anxiety Outcome: Progressing Goal: Free from restraint events Outcome: Progressing Problem: Safety - Adult Goal: Free from fall injury Outcome: Progressing Problem: Anxiety Goal: Will report anxiety at manageable levels Outcome: Progressing Problem: Drug Abuse/Detox Goal: Will have no detox symptoms and will verbalize plan for changing drug- related behavior Outcome: Progressing Problem: Safety Goal: Patient will be injury free during hospitalization Outcome: Progressing Goal: I will remain free of falls Outcome: Progressing Problem: Daily Care Goal: Daily care needs are met Outcome: Progressing [id number] Discharge instructions* Discharge Instructions* Fatuma Hess APRN - [employer] - 11/04/2022 4:52 PM EDT [facility]patient [facility] [address] [place], [place] [id number] [address] [address] Community Support Services ([facility]) [address] [place] [id number] * Discharge Instr - Other Orders* VANITA Toribio - 11/04/2022 8:44 AM EDT After detox you should abstain from any use of any mood altering chemical Appointment with your primary care physician should be scheduled It is highly recommended that you attend post hospital treatment Please read the information give to you - Intro to 12 step programs Call the National Suicide Prevention Hotline if needed at: 8-416-071-JQYH (6370) Please call the following number should you have questions regarding your discharge or aftercare appointments: [facility] documented in this [facility]SDay[facility] [id number] Note* Care Coordination - VANITA Toribio - 11/04/2022 2:53 PM EDT Patient signed ARI for [facility] program. [facility] faxed over referral information to agency. [facility] continue follow-up as necessary. t 2:53 PM [id number] Note* Care Coordination - VANITA Toribio - 11/04/2022 2:53 PM EDT Patient signed [facility] for [facility] treatment program. [facility] faxed over referral information to agency. [facility] continue follow-up as necessary.Electronically signed by VANITA Toribio on 3at 2:53 PM [facility] [id number] Consult note* JOSÉ ANTONIO Scruggs CNP - 11/04/2022 1:33 PM EDTAssociated Order(s): IP CONSULT TO PSYCHIATRY Department of Psychiatry Nurse Practitioner Note Mon-Fri: From 1700 - 0800 on Please contact [employer] [facility] Psychiat[facility] Listed in Epic Thu & Thursday Please contact [facility] [employer] [facility] [facility] Psychiatry Reason for Consult: PTSD, panic attacks worse at night, assistance with medication adjustment to help with night time panic attacks as this is a large recent he drinks Consulting Practitioner: SEBASTIEN Zambrano Hospital Day: 1 IDENTIFYING INFORMATION Name: Roro Valdivia : 1985 Subjective: CHIEF COMPLAINT: Chief Complaint Patient presents with Addiction Problem Detox ETOH, fentanyl, heroin. Drinks 1/2 gallon of liquor daily Alcohol withdrawal syndrome without complication (HCC) No Known Allergies History obtained from: Patient and Chart Review ADMISSION DATE: 11/03/2022 For every encounter with this patient, this Provider wore appropriate PPE including but not limitedto standard precautions, N95 mask, surgical mask, gown and/or protective eyewear. Chart reviewed, including notes, labs, imagining, allergies, and medications, all pertinent information discussed with medical staff, nursing, social work, and patient/family if necessary. HISTORY OF PRESENT ILLNESS: HPI: Roro Valdivia is a 37 y.o., male who was hospitalized at [facility] for Alcohol withdrawal syndrome without complication (HCC) on 11/03/2022. PMH of of CAD, GERD, hypertension, and pancreatitis. Patient also has a diagnosis of Tourette's syndrome. Today, pt is seen resting in hospital bed, pt is alert and oriented x 3, and is cooperative with interview. He endorses hx of depression, anxiety and PTSD but is unable to tell of trauma or abuse in past but notes I did almost choke on a mozzarella stick once. He reports anxiety and panic as his main issue which leads to alcohol use. Reports during panic he gets heart palpations, feels like he cannot swallow and SOB. He notes these started at age of 19. He denies OP follow up and states he PCP Dr. Huhges prescribes him Zyprexa for anxiety. He reports hx of Tourette's and reports trials of risperidone, Catapres, Prozac and Zoloft. He explains he never gave medications a chance to work prior to stopping them. He feels clonidine was very helpful last night and notes no anxiety or panic today. Endorses hx of suicidal ideation, Pt denies any current suicidal ideation, intent or plan. No dontrell noted and no s/s of psychosis. Has hx of psychiatric hospitalization for SI most recently in may 2022 at [facility] and [facility]. Previously followed with [facility] Medication options were reviewed; Education performed on risks, benefits, side effects, expectations of treatment, importance of compliance, risks of declining treatment, as well as alternative treatments. Patient given ample time to ask questions and review any concerns. Past Psychiatric History: Per HPI PSYCHIATRIC REVIEW OF SYMPTOMS: [] Change in appetite/weight [x] Change in sleep MOOD: [x] Anhedonia [x] Decreased/low mood [] Worthlessness/Guilt [x] Hopeless/Helpless [] Decreased energy [] Decreased concentration ANXIETY: [x] Excessive worry/difficulty controlling worry [] Irritability [] Easily fatigued [] Difficulty concentrating [] Obsessions [x] Palpitations/Chest pain [x] Diaphoresis [x] Shortness of breath [] Trembling/shaking [x] Sense of doom/fear of dying [] Agoraphobia [] Derealization/Depersonalization PTSD: [] Nightmares [] Flashbacks [] Avoidance [] Hyperarousal [] Hypervigilance [x] Denies DONTRELL: [] Inflated self esteem/grandiosity [] Elevated energy [] Decreased need for sleep [] Talkative/rapid/pressured speech [] Flight of ideas/racing thoughts [] Distractibility [] Increased goal directed activity [] Risky behaviors/activities [] Irritability [] Impulsivity [] Psychomotor agitation [x] Denies/Not noted PSYCHOSIS: [] Auditory hallucinations [] Visual hallucinations [] Tactile hallucinations [] Delusions [] Disorganized speech [] Paranoia [x] Denies/Not noted Current Facility-Administered Medications: Current Facility-Administered Medications: acetaminophen (Tylenol) tablet 650 mg, 650 mg, Oral, q6h PRN, Carlitos Vellanki, MD aluminum & magnesium hydroxide-simethicone (Mylanta) 200-200-20 MG/5ML oral suspension 10 mL, 10 mL, Oral, TID PRN, Carlitos Orta MD baclofen (Lioresal) tablet 10 mg, 10 mg, Oral, q8h, Carlitos Orta MD, 10 mg at 11/04/22 1249 cloNIDine (Catapres) tablet 0.1 mg, 0.1 mg, Oral, q8h, Carlitos Orta MD, 0.1 mg at 11/04/22 1249 dicyclomine (Bentyl) capsule 20 mg, 20 mg, Oral, TID PRN, Carlitos Orta MD folic acid (Folvite) tablet 1 mg, 1 mg, Oral, Daily, Carlitos Orta MD, 1 mg at 11/04/22 0902 hydrOXYzine pamoate (Vistaril) capsule 50 mg, 50 mg, Oral, q6h PRN, Carlitos Orta MD, 50 mg at 11/04/22 0526 loperamide (Imodium) capsule 2 mg, 2 mg, Oral, 4x daily PRN, Carlitos Orta MD metoprolol succinate XL (Toprol-XL) 24 hr tablet 25 mg, 25 mg, Oral, Daily, Carlitos Orta MD, 25 mg at 11/04/22 124 nicotine (Nicoderm, Step 1) 21 MG/24HR patch 1 patch, 1 patch, TransDERmal, Daily, Carlitos Orta MD, 1 patch at 11/04/22 09 OLANZapine (ZyPREXA) tablet 7.5 mg, 7.5 mg, Oral, Nightly, Thiago Hilton DO ondansetron ODT (Zofran-ODT) disintegrating tablet 4 mg, 4 mg, Oral, q6h PRN, Carlitos Orta MD, 4mg at 11/04/22 0529 [START ON 11/05/2022] pantoprazole (ProtoNix) EC tablet 40 mg, 40 mg, Oral, qAM AC, Carlitos Orta MD PHENobarbital (Luminal) tablet 97.2 mg, 97.2 mg, Oral, Q4H, Carlitos Orta MD, 97.2 mg at sertraline (Zoloft) tablet 25 mg, 25 mg, Oral, Daily, Carlitos Orta MD therapeutic multivitamin-minerals (Theragran-M) tablet, 1 tablet, Oral, Daily, Carlitos Orta MD, 1 tablet at 11/04/22901 thiamine (Vitamin B1) tablet 100 mg, 100 mg, Oral, Daily, Carlitos Orta MD, 100 mg at 11/04/22 0902 traMADol (Ultram) tablet 100 mg, 100 mg, Oral, Q4H, 100 mg at 11/04/22 1249 FOLLOWED BY [START ON 11/05/2022] traMADol (Ultram) tablet 100 mg, 100 mg, Oral, q6h FOLLOWED BY [START ON 11/06/2022] traMADol (Ultram) tablet 100 mg, 100 mg, Oral, q8h, Carlitos Orta MD traZODone (Desyrel) tablet 100 mg, 100 mg, Oral, Nightly PRN, Carlitos Orta MD Medications Prior to Admission: Current Outpatient Medications Medication Instructions hydrOXYzine pamoate (VISTARIL) 25 mg, Oral, Every 6 hours PRN METOPROLOL SUCCINATE ER PO 25 mg, Oral, Daily, 2 tabs in the morning and 1 tab at night OLANZapine (ZYPREXA) 5 mg, Oral, Nightly omeprazole (PRILOSEC) 40 mg, Oral, Daily before breakfast, Do not crush or chew. sertraline (ZOLOFT) 25 mg, Oral, Daily History: Past Medical History: Diagnosis Date Alcohol withdrawal with inpatient treatment, uncomplicated ([facility]) 03/15/2022 GERD (gastroesophageal reflux disease) Hypertension Pancreatitis Seizures (HCC) SVT (supraventricular tachycardia) ([facility]/HCC) (HCC) Tourette syndrome Past Surgical History: Procedure Laterality Date APPENDECTOMY Family History Problem Relation Name Age of Onset No Known Problems Mother No Known Problems Father Social History: Single, lives in [place], no family support. Has GED, unemployed Social History Tobacco Use Smoking status: Every Day Packs/day: 1 Types: Cigarettes Smokeless tobacco: Never Vaping Use Vaping Use: Never used Substance Use Topics Alcohol use: Yes Comment: 1 liter black velvet and a case of beer per day Drug use: Not Currently Types: Cocaine, Methamphetamines, Oxycodone, Fentanyl, Heroin, Benzodiazepines Social Determinants of Health Tobacco Use: High Risk (11/04/2022) Patient History Smoking Tobacco Use: Every Day Smokeless Tobacco Use: Never Passive Exposure: Not on file Alcohol Use: Alcohol Misuse (11/04/2022) AUDIT-C Frequency of Alcohol Consumption: 4 or more times a week Average Number of Drinks: 10 or more Frequency of Binge Drinking: Daily or almost daily Financial Resource Strain: High Risk (11/04/2022) Overall Financial Resource Strain (CARDIA) Difficulty of Paying Living Expenses: Very hard Food Insecurity: Food Insecurity Present (11/04/2022) Hunger Vital Sign Worried About Running Out of Food in the Last Year: Often true Ran Out of Food in the Last Year: Often true Transportation Needs: Unmet Transportation Needs (11/04/2022) PRAPARE - Transportation Lack of Transportation (Medical): Yes Lack of Transportation (Non-Medical): Yes Physical Activity: Inactive (11/04/2022) Exercise Vital Sign Days of Exercise per Week: 0 days Minutes of Exercise per Session: 0 min Stress: Stress Concern Present (11/04/2022) [employer] - Occupational Stress Questionnaire Feeling of Stress : To some extent Social Connections: Unknown (11/04/2022) Social Connection and Isolation Panel [NHANES] Frequency of Communication with Friends and Family: Patient refused Frequency of Social Gatherings with Friends and Family: Patient refused Attends Amish Services: Patient refused Active Member of Clubs or Organizations: Patient refused Attends Club or Organization Meetings: Patient refused Marital Status: Patient refused Intimate Partner Violence: Not At Risk (11/04/2022) Humiliation, Afraid, Rape, and Kick questionnaire Fear of Current or Ex-Partner: No Emotionally Abused: No Physically Abused: No Sexually Abused: No Depression: Mild depression (11/04/2022) PHQ-9 PHQ-9 Score: 7 Housing Stability: High Risk (11/04/2022) Housing Stability Vital Sign Unable to Pay for Housing in the Last Year: Yes Number of Places Lived in the Last Year: 0 Unstable Housing in the Last Year: Yes Utilities: Not on file SUBSTANCE USE HISTORY: ETOH: half gallon of liquor daily Illicit Drugs: methamphetamines, crack cocaine, fentanyl, benzos Nicotine/Tobacco: 1 ppd Urine Drug Screen: ETOH 0.191 and Utox + for amphetamines, benzodiazepines, and fentanyl. REVIEW OF SYSTEMS: Review of Systems Constitutional: Positive for activity change and fatigue. HENT: Negative for congestion, sneezing and sore throat. Respiratory: Negative for cough and shortness of breath. Cardiovascular: Negative for chest pain. Gastrointestinal: Negative for abdominal pain. Genitourinary: Negative for difficulty urinating. Musculoskeletal: Negative for myalgias. Skin: Negative for rash and wound. Neurological: Negative for dizziness and speech difficulty. Psychiatric/Behavioral: Negative for dysphoric mood, sleep disturbance and suicidal ideas. The patient is nervous/anxious. All other systems reviewed and are negative. Objective: PHYSICAL EXAM: Vitals: 11/04/22 0357 11/04/22 0421 11/04/22 0556 11/04/22 1113 BP: 137/80 (!) 153/110 (!) 153/110 124/76 BP Location: Left arm Left arm Patient Position: Lying Lying Lying Pulse: 95 91 91 70 Resp: 18 17 16 Temp: 36.4 C (97.5 F) 36 C (96.8 F) TempSrc: Temporal Temporal SpO2: 97% 96% 95% Weight: 95.3 kg (210 lb) Height: 1.778 m (5' 10) Physical Exam Vitals and nursing note reviewed. Constitutional: Appearance: Normal appearance. HENT: Head: Normocephalic and atraumatic. Nose: Nose normal. Cardiovascular: Rate and Rhythm: Normal rate. Pulmonary: Effort: Pulmonary effort is normal. No respiratory distress. Skin: General: Skin is warm and dry. Neurological: Mental Status: He is alert and oriented to person, place, and time. Psychiatric: Attention and Perception: Attention and perception normal. Mood and Affect: Mood and affect normal. Speech: Speech normal. Behavior: Behavior normal. Behavior is cooperative. Thought Content: Thought content normal. Thought content is not paranoid or delusional. Thought content does not include homicidal or suicidal ideation. Thought content does not include homicidal or suicidal plan. Cognition and Memory: Cognition and memory normal. Judgment: Judgment normal. LABS: I reviewed pertinent Laboratory results, Radiographic results, Most recent EKG, and Other Clinical Notes at the time of today's encounter. Recent Results (from the past 72 hour(s)) CBC auto differential Collection Time: 11/03/22 11:09 PM Result Value Ref Range Auto WBC 5.5 3.6 - 10.7 10*3/uL RBC 4.95 4.40 - 5.90 10*6/uL Hemoglobin 15.1 13.0 - 18.0 g/dL Hematocrit 45.9 40.0 - 52.0 % MCV 92.8 80.0 - 98.0 fL MCH 30.5 26.0 - 34.0 pg MCHC 32.9 32.0 - 36.0 % RDW 13.2 11.5 - 14.5 % Platelets 193 140 - 440 10*3/uL MPV 7.6 7.4 - 12.4 fL nRBC 0.1 0.0 - 2.0 /100 WBCs Neutrophils Relative 38.3 (L) 40.0 - 80.0 % Lymphocytes Relative 51.2 (H) 20.0 - 40.0 % Monocytes Relative 8.3 2.0 - 10.0 % Eosinophils Relative 1.5 1.0 - 6.0 % Basophils Relative 0.7 0.0 - 2.0 % Neutrophils Absolute 2.1 1.8 - 7.0 10*3/uL Lymphocytes Absolute 2.8 1.0 - 4.3 10*3/uL Monocytes Absolute 0.5 0.0 - 0.8 10*3/uL Eosinophils Absolute 0.1 0.0 - 0.5 10*3/uL Basophils Absolute 0.0 0.0 - 0.2 10*3/uL Comprehensive metabolic panel Collection Time: 11/03/22 11:09 PM Result Value Ref Range SODIUM 146 (H) 135 - 145 mmol/L POTASSIUM 4.6 3.5 - 5.1 mmol/L CHLORIDE 107 98 - 107 mmol/L CARBON DIOXIDE 24 22 - 30 mmol/L ANION GAP 15 (H) 3 - 13 mmol/L UREA NITROGEN 8 (L) 9 - 20 mg/dL CREATININE 0.99 0.66 - 1.25 mg/dL GLUCOSE 103 (H) 70 - 100 mg/dL CALCIUM 9.4 8.4 - 10.4 mg/dL AST (SGOT) 169 (H) 15 - 46 U/L ALT 118 (H) 0 - 49 U/L ALKALINE PHOSPHATASE 99 38 - 126 U/L ALBUMIN 5.1 (H) 3.5 - 5.0 g/dL BILIRUBIN, TOTAL 0.5 0.2 - 1.3 mg/dL TOTAL PROTEIN 9.1 (H) 6.3 - 8.2 g/dL eGFR >90.0 >60.0 mL/min/1.73m*2 Ethanol Collection Time: 11/03/22 11:09 PM Result Value Ref Range ETHANOL IN SER/PLAS 0.191 (H) 0.000 - 0.010 g/dL CK Collection Time: 11/03/22 11:09 PM Result Value Ref Range CK 163 30 - 170 U/L SARS-CoV-2 Antigen Collection Time: 11/03/22 11:12 PM Specimen: Nasal; Swab Result Value Ref Range SARS-CoV-2 Antigen Negative Negative Drug screen panel, emergency Collection Time: 11/04/22 12:57 AM Result Value Ref Range AMPHETAMINE SCREEN Positive BARBITURATES SCREEN Negative BENZODIAZEPINE SCREEN Positive COCAINE METAB. SCREEN Negative METHADONE SCREEN Negative OPIATES SCREEN Negative OXYCODONE SCREEN Negative PHENCYCLIDINE SCREEN Negative Fentanyl, urine Collection Time: 11/04/22 12:57 AM Result Value Ref Range FENTANYL SCREEN, URINE Positive Negative MSE: Mental Status Exam: Level of Consciousness: [x] Alert Orientation: Person: [x] yes [] no Date/Time: [x] yes [] no Place: [x] yes [] no [] Disoriented [] Confused [] Drowsy/Somnolent [] Tired [] Lethargic [] Asleep [] Could not be assessed Gait: [] Steady [] Unsteady [] Sitting [x] Lying [] Assisted Device Used Appearance: [x] Appropriate [] Disheveled [] Poor Hygiene [] Improved [] Unchanged [x] Appears Stated Age [] Appears Older [] Appears Younger Behavior/Manner: [x] Cooperative [] Pleasant [] Irritable [] Hostile [] Agitated [] Aggressive [] Combative [] Guarded [] Restricted [] Suspicious [] Withdrawn [] Slowed [] Hyperactive [] Other Motor Activity: [x] Normal [] Decreased [] Agitation [] Psychomotor retardation [] Tremor [] Abnormal involuntary movements [] Extrapyramidal side effects [] Tardive dyskinesia [] Other Speech: [x] Normal [] Spontaneous [] Nonverbal [] Soft [] Loud [] Noncommunicative [] Rapid [] Pressured [] Tangential [] Dysarthria [] Incoherent [] Other Language: [x] Normal [] Expressive Aphasia [] Fluent Aphasia [] Other Mood: [x] Euthymic [] Elated [] Euphoric [] Depressed [] Irritable [] Angry [] Anxious [] Fearful [] Apathetic [] Other Affect: [x] Mood Congruent [] Full [] Flat [] Broad [] Blunted [] Restricted [] Guarded [] Irritable [] Angry [] Labile [] Anxious [] Depressed [] Tearful [] Expansive [] Exaggerated [] Other Thought Process/Association: [x] Organized [] Logical [] Future Forward [] Disorganized [] Tangential [] Loose associations [] Circumstantial [] [place] [] Perseverative [] Poverty of Thought [] Racing Thoughts [] Flight of Ideas [] Thought Blocking [] Incoherent [] Could not be assessed Thought Contents: [x] Denies suicidal ideation, intent, plan [x] Denies homicidal ideation, intent, plan [x] No s/s Dontrell [x] No s/s Psychosis [] Hopeful [] Motivated [] Future Oriented [] Suicidal ideation [] Suicidal intent/ plan [] Thoughts of self-harm [] Paranoia [] Ruminations [] Delusions [] Obsessions/Compulsions [] Hopelessness [] Worthlessness [] Hypochondriasis [] Homicidal ideation [] Homicidal intent/plan [] Could not be assessed Perception: [x] Normal [] Hallucinations [] Auditory [] Visual [] Olfactory [] Tactile [] Dissociation [] Flashbacks [] Could not be assessed Attention/Concentration: [x] Intact [] Impaired [] Poor [] Distractible [] Other Fund of Knowledge: [x] appropriate for education level [] below expectations for education level Cognition: [x] Intact [] Impaired Memory: [x] Intact [] Impaired Judgement: [x] Intact [] Impaired [] Poor [] Fair [] Limited Insight: [x] Intact [] Impaired [] Poor [] Fair [] Limited Assessment: Patient Active Problem List Diagnosis GERD (gastroesophageal reflux disease) Hypertension SVT (supraventricular tachycardia) (CMS/HCC) (HCC) Tourette syndrome Alcohol induced acute pancreatitis without necrosis or infection Acute pancreatitis Acute pancreatitis without infection or necrosis Polysubstance use disorder Cocaine abuse (HCC) Elevated liver enzymes Panic disorder Alcohol withdrawal syndrome without complication (HCC) Alcohol abuse Benzodiazepine withdrawal with complication (HCC) Opioid withdrawal (HCC) Amphetamine withdrawal (HCC) Pneumonia Palpitations Other specified abnormal findings of blood chemistry Dermatitis Depression Depression with Anxiety Panic disorder Polysubstance Abuse Plan: Continue olanzapine 7.5 mg, sertraline 25 mg daily, and clonidine 0.1 mg Q8 for which he is findingbenefit. Provided pt resources to follow up OP with [facility]. Pt is accepting of medical care and denies any suicidal ideation, intent or plan. Pt does not present manic or show s/s of psychosis. Pt doesnot meet criteria for inpatient psychiatric admission. Psychiatry will follow peripherally as able. Anticipate dc home. On this day, 11/04/22 , I spent total time 60 minutes preparing to see the pt, reviewing previous notes, obtaining/reviewing separately obtained, history, test results, coordinating care with hospital staff, counseling/educating the patient/family/caregiver and face to face with the patient discussing the diagnosis, current symptom burden, medication side effects, medication change options, and importance of compliance with the treatment plan as well as documenting all relevant and pertinent clinical information in the patient's electronic record on the day of the visit. [facility] Phone: [phone] Consult note* JOSÉ ANTONIO Scruggs CNP - 11/04/2022 1:33 PM EDTAssociated Order(s): IP CONSULT TO PSYCHIATRY Department of Psychiatry Nurse Practitioner Note Mon-Fri: From 1700 - 0800 on Please contact [employer] Psychiatry Listed in Epic Thu & Thursday Please contact [employer] Psychiatry Reason for Consult: PTSD, panic attacks worse at night, assistance with medication adjustment to help with night time panic attacks as this is a large recent he drinks Consulting Practitioner: SEBASTIEN Zambrano Hospital Day: 1 IDENTIFYING INFORMATION Name: Roro Valdivia : 1985 Subjective: CHIEF COMPLAINT: Chief Complaint Patient presents with Addiction Problem Detox ETOH, fentanyl, heroin. Drinks 1/2 gallon of liquor daily Alcohol withdrawal syndrome without complication (HCC) No Known Allergies History obtained from: Patient and Chart Review ADMISSION DATE: 11/03/2022 For every encounter with this patient, this Provider wore appropriate PPE including but not limitedto standard precautions, N95 mask, surgical mask, gown and/or protective eyewear. Chart reviewed, including notes, labs, imagining, allergies, and medications, all pertinent information discussed with medical staff, nursing, social work, and patient/family if necessary. HISTORY OF PRESENT ILLNESS: HPI: Roro Valdivia is a 37 y.o., male who was hospitalized at [facility] for Alcohol withdrawal syndrome without complication (HCC) on 11/03/2022. PMH of of CAD, GERD, hypertension, and pancreatitis. Patient also has a diagnosis of Tourette's syndrome. Today, pt is seen resting in hospital bed, pt is alert and oriented x 3, and is cooperative with interview. He endorses hx of depression, anxiety and PTSD but is unable to tell of trauma or abuse in past but notes I did almost choke on a mozzarella stick once. He reports anxiety and panic as his main issue which leads to alcohol use. Reports during panic he gets heart palpations, feels like he cannot swallow and SOB. He notes these started at age of 19. He denies OP follow up and states he PCP Dr. Hughes prescribes him Zyprexa for anxiety. He reports hx of Tourette's and reports trials of risperidone, Catapres, Prozac and Zoloft. He explains he never gave medications a chance to work prior to stopping them. He feels clonidine was very helpful last night and notes no anxiety or panic today. Endorses hx of suicidal ideation, Pt denies any current suicidal ideation, intent or plan. No dontrell noted and no s/s of psychosis. Has hx of psychiatric hospitalization for SI most recently in may 2022 at [facility] and [facility]. Previously followed with [facility] Medication options were reviewed; Education performed on risks, benefits, side effects, expectations of treatment, importance of compliance, risks of declining treatment, as well as alternative treatments. Patient given ample time to ask questions and review any concerns. Past Psychiatric History: Per HPI PSYCHIATRIC REVIEW OF SYMPTOMS: [] Change in appetite/weight [x] Change in sleep MOOD: [x] Anhedonia [x] Decreased/low mood [] Worthlessness/Guilt [x] Hopeless/Helpless [] Decreased energy [] Decreased concentration ANXIETY: [x] Excessive worry/difficulty controlling worry [] Irritability [] Easily fatigued [] Difficulty concentrating [] Obsessions [x] Palpitations/Chest pain [x] Diaphoresis [x] Shortness of breath [] Trembling/shaking [x] Sense of doom/fear of dying [] Agoraphobia [] Derealization/Depersonalization PTSD: [] Nightmares [] Flashbacks [] Avoidance [] Hyperarousal [] Hypervigilance [x] Denies DONTRELL: [] Inflated self esteem/grandiosity [] Elevated energy [] Decreased need for sleep [] Talkative/rapid/pressured speech [] Flight of ideas/racing thoughts [] Distractibility [] Increased goal directed activity [] Risky behaviors/activities [] Irritability [] Impulsivity [] Psychomotor agitation [x] Denies/Not noted PSYCHOSIS: [] Auditory hallucinations [] Visual hallucinations [] Tactile hallucinations [] Delusions [] Disorganized speech [] Paranoia [x] Denies/Not noted Current Facility-Administered Medications: Current Facility-Administered Medications: acetaminophen (Tylenol) tablet 650 mg, 650 mg, Oral, q6h PRN, Carlitos Orta MD aluminum & magnesium hydroxide-simethicone (Mylanta) 200-200-20 MG/5ML oral suspension 10 mL, 10 mL, Oral, TID PRN, Carlitos Orta MD baclofen (Lioresal) tablet 10 mg, 10 mg, Oral, q8h, Carlitos Orta MD, 10 mg at 11/04/22 1249 cloNIDine (Catapres) tablet 0.1 mg, 0.1 mg, Oral, q8h, Carlitos Orta MD, 0.1 mg at 11/04/22 1249 dicyclomine (Bentyl) capsule 20 mg, 20 mg, Oral, TID PRN, Carlitos Orta MD folic acid (Folvite) tablet 1 mg, 1 mg, Oral, Daily, Carlitos Orta MD, 1 mg at 11/04/22901 hydrOXYzine pamoate (Vistaril) capsule 50 mg, 50 mg, Oral, q6h PRN, Carlitos Orta MD, 50 mg at 11/04/22 0526 loperamide (Imodium) capsule 2 mg, 2 mg, Oral, 4x daily PRN, Carlitos Orta MD metoprolol succinate XL (Toprol-XL) 24 hr tablet 25 mg, 25 mg, Oral, Daily, Carlitos Orta MD, 25 mg at 11/04/22 1249 nicotine (Nicoderm, Step 1) 21 MG/24HR patch 1 patch, 1 patch, TransDERmal, Daily, Carlitos Orta MD, 1 patch at 11/04/22901 OLANZapine (ZyPREXA) tablet 7.5 mg, 7.5 mg, Oral, Nightly, Thiago Hilton DO ondansetron ODT (Zofran-ODT) disintegrating tablet 4 mg, 4 mg, Oral, q6h PRN, Carlitos Orta MD, 4mg at 11/04/22 0529 [START ON 11/05/2022] pantoprazole (ProtoNix) EC tablet 40 mg, 40 mg, Oral, qAM AC, Carlitos Orta MD PHENobarbital (Luminal) tablet 97.2 mg, 97.2 mg, Oral, Q4H, Carlitos Orta MD, 97.2 mg at 249 sertraline (Zoloft) tablet 25 mg, 25 mg, Oral, Daily, Carlitos Orta MD therapeutic multivitamin-minerals (Theragran-M) tablet, 1 tablet, Oral, Daily, Carlitos Orta MD, 1 tablet at 11/04/22 09 thiamine (Vitamin B1) tablet 100 mg, 100 mg, Oral, Daily, Carlitos Orta MD, 100 mg at 11/04/22901 traMADol (Ultram) tablet 100 mg, 100 mg, Oral, Q4H, 100 mg at 11/04/22 1249 FOLLOWED BY [START ON 11/05/2022] traMADol (Ultram) tablet 100 mg, 100 mg, Oral, q6h FOLLOWED BY [START ON 11/06/2022] traMADol (Ultram) tablet 100 mg, 100 mg, Oral, q8h, Carlitos Orta MD traZODone (Desyrel) tablet 100 mg, 100 mg, Oral, Nightly PRN, Carlitos Orta MD Medications Prior to Admission: Current Outpatient Medications Medication Instructions hydrOXYzine pamoate (VISTARIL) 25 mg, Oral, Every 6 hours PRN METOPROLOL SUCCINATE ER PO 25 mg, Oral, Daily, 2 tabs in the morning and 1 tab at night OLANZapine (ZYPREXA) 5 mg, Oral, Nightly omeprazole (PRILOSEC) 40 mg, Oral, Daily before breakfast, Do not crush or chew. sertraline (ZOLOFT) 25 mg, Oral, Daily History: Past Medical History: Diagnosis Date Alcohol withdrawal with inpatient treatment, uncomplicated ([facility]) 03/15/2022 GERD (gastroesophageal reflux disease) Hypertension Pancreatitis Seizures ([facility]) SVT (supraventricular tachycardia) (CMS/HCC) (HCC) Tourette syndrome Past Surgical History: Procedure Laterality Date APPENDECTOMY Family History Problem Relation Name Age of Onset No Known Problems Mother No Known Problems Father Social History: Single, lives in [place], no family support. Has GED, unemployed Social History Tobacco Use Smoking status: Every Day Packs/day: 1 Types: Cigarettes Smokeless tobacco: Never Vaping Use Vaping Use: Never used Substance Use Topics Alcohol use: Yes Comment: 1 liter black velvet and a case of beer per day Drug use: Not Currently Types: Cocaine, Methamphetamines, Oxycodone, Fentanyl, Heroin, Benzodiazepines Social Determinants of Health Tobacco Use: High Risk (11/04/2022) Patient History Smoking Tobacco Use: Every Day Smokeless Tobacco Use: Never Passive Exposure: Not on file Alcohol Use: Alcohol Misuse (11/04/2022) AUDIT-C Frequency of Alcohol Consumption: 4 or more times a week Average Number of Drinks: 10 or more Frequency of Binge Drinking: Daily or almost daily Financial Resource Strain: High Risk (11/04/2022) Overall Financial Resource Strain (CARDIA) Difficulty of Paying Living Expenses: Very hard Food Insecurity: Food Insecurity Present (11/04/2022) Hunger Vital Sign Worried About Running Out of Food in the Last Year: Often true Ran Out of Food in the Last Year: Often true Transportation Needs: Unmet Transportation Needs (11/04/2022) PRAPARE - Transportation Lack of Transportation (Medical): Yes Lack of Transportation (Non-Medical): Yes Physical Activity: Inactive (11/04/2022) Exercise Vital Sign Days of Exercise per Week: 0 days Minutes of Exercise per Session: 0 min Stress: Stress Concern Present (11/04/2022) [employer] - Occupational Stress Questionnaire Feeling of Stress : To some extent Social Connections: Unknown (11/04/2022) Social Connection and Isolation Panel [NHANES] Frequency of Communication with Friends and Family: Patient refused Frequency of Social Gatherings with Friends and Family: Patient refused Attends Amish Services: Patient refused Active Member of Clubs or Organizations: Patient refused Attends Club or Organization Meetings: Patient refused Marital Status: Patient refused Intimate Partner Violence: Not At Risk (11/04/2022) Humiliation, Afraid, Rape, and Kick questionnaire Fear of Current or Ex-Partner: No Emotionally Abused: No Physically Abused: No Sexually Abused: No Depression: Mild depression (11/04/2022) PHQ-9 PHQ-9 Score: 7 Housing Stability: High Risk (11/04/2022) Housing Stability Vital Sign Unable to Pay for Housing in the Last Year: Yes Number of Places Lived in the Last Year: 0 Unstable Housing in the Last Year: Yes Utilities: Not on file SUBSTANCE USE HISTORY: ETOH: half gallon of liquor daily Illicit Drugs: methamphetamines, crack cocaine, fentanyl, benzos Nicotine/Tobacco: 1 ppd Urine Drug Screen: ETOH 0.191 and Utox + for amphetamines, benzodiazepines, and fentanyl. REVIEW OF SYSTEMS: Review of Systems Constitutional: Positive for activity change and fatigue. HENT: Negative for congestion, sneezing and sore throat. Respiratory: Negative for cough and shortness of breath. Cardiovascular: Negative for chest pain. Gastrointestinal: Negative for abdominal pain. Genitourinary: Negative for difficulty urinating. Musculoskeletal: Negative for myalgias. Skin: Negative for rash and wound. Neurological: Negative for dizziness and speech difficulty. Psychiatric/Behavioral: Negative for dysphoric mood, sleep disturbance and suicidal ideas. The patient is nervous/anxious. All other systems reviewed and are negative. Objective: PHYSICAL EXAM: Vitals: 11/04/22 0357 11/04/22 0421 11/04/22 0556 09/26/23 1113 BP: 137/80 (!) 153/110 (!) 153/110 124/76 BP Location: Left arm Left arm Patient Position: Lying Lying Lying Pulse: 95 91 91 70 Resp: 18 17 16 Temp: 36.4 C (97.5 F) 36 C (96.8 F) TempSrc: Temporal Temporal SpO2: 97% 96% 95% Weight: 95.3 kg (210 lb) Height: 1.778 m (5' 10) Physical Exam Vitals and nursing note reviewed. Constitutional: Appearance: Normal appearance. HENT: Head: Normocephalic and atraumatic. Nose: Nose normal. Cardiovascular: Rate and Rhythm: Normal rate. Pulmonary: Effort: Pulmonary effort is normal. No respiratory distress. Skin: General: Skin is warm and dry. Neurological: Mental Status: He is alert and oriented to person, place, and time. Psychiatric: Attention and Perception: Attention and perception normal. Mood and Affect: Mood and affect normal. Speech: Speech normal. Behavior: Behavior normal. Behavior is cooperative. Thought Content: Thought content normal. Thought content is not paranoid or delusional. Thought content does not include homicidal or suicidal ideation. Thought content does not include homicidal or suicidal plan. Cognition and Memory: Cognition and memory normal. Judgment: Judgment normal. LABS: I reviewed pertinent Laboratory results, Radiographic results, Most recent EKG, and Other Clinical Notes at the time of today's encounter. Recent Results (from the past 72 hour(s)) CBC auto differential Collection Time: 11/03/22 11:09 PM Result Value Ref Range Auto WBC 5.5 3.6 - 10.7 10*3/uL RBC 4.95 4.40 - 5.90 10*6/uL Hemoglobin 15.1 13.0 - 18.0 g/dL Hematocrit 45.9 40.0 - 52.0 % MCV 92.8 80.0 - 98.0 fL MCH 30.5 26.0 - 34.0 pg MCHC 32.9 32.0 - 36.0 % RDW 13.2 11.5 - 14.5 % Platelets 193 140 - 440 10*3/uL MPV 7.6 7.4 - 12.4 fL nRBC 0.1 0.0 - 2.0 /100 WBCs Neutrophils Relative 38.3 (L) 40.0 - 80.0 % Lymphocytes Relative 51.2 (H) 20.0 - 40.0 % Monocytes Relative 8.3 2.0 - 10.0 % Eosinophils Relative 1.5 1.0 - 6.0 % Basophils Relative 0.7 0.0 - 2.0 % Neutrophils Absolute 2.1 1.8 - 7.0 10*3/uL Lymphocytes Absolute 2.8 1.0 - 4.3 10*3/uL Monocytes Absolute 0.5 0.0 - 0.8 10*3/uL Eosinophils Absolute 0.1 0.0 - 0.5 10*3/uL Basophils Absolute 0.0 0.0 - 0.2 10*3/uL Comprehensive metabolic panel Collection Time: 11/03/22 11:09 PM Result Value Ref Range SODIUM 146 (H) 135 - 145 mmol/L POTASSIUM 4.6 3.5 - 5.1 mmol/L CHLORIDE 107 98 - 107 mmol/L CARBON DIOXIDE 24 22 - 30 mmol/L ANION GAP 15 (H) 3 - 13 mmol/L UREA NITROGEN 8 (L) 9 - 20 mg/dL CREATININE 0.99 0.66 - 1.25 mg/dL GLUCOSE 103 (H) 70 - 100 mg/dL CALCIUM 9.4 8.4 - 10.4 mg/dL AST (SGOT) 169 (H) 15 - 46 U/L ALT 118 (H) 0 - 49 U/L ALKALINE PHOSPHATASE 99 38 - 126 U/L ALBUMIN 5.1 (H) 3.5 - 5.0 g/dL BILIRUBIN, TOTAL 0.5 0.2 - 1.3 mg/dL TOTAL PROTEIN 9.1 (H) 6.3 - 8.2 g/dL eGFR >90.0 >60.0 mL/min/1.73m*2 Ethanol Collection Time: 11/03/22 11:09 PM Result Value Ref Range ETHANOL IN SER/PLAS 0.191 (H) 0.000 - 0.010 g/dL CK Collection Time: 11/03/22 11:09 PM Result Value Ref Range CK 163 30 - 170 U/L SARS-CoV-2 Antigen Collection Time: 11/03/22 11:12 PM Specimen: Nasal; Swab Result Value Ref Range SARS-CoV-2 Antigen Negative Negative Drug screen panel, emergency Collection Time: 11/04/22 12:57 AM Result Value Ref Range AMPHETAMINE SCREEN Positive BARBITURATES SCREEN Negative BENZODIAZEPINE SCREEN Positive COCAINE METAB. SCREEN Negative METHADONE SCREEN Negative OPIATES SCREEN Negative OXYCODONE SCREEN Negative PHENCYCLIDINE SCREEN Negative Fentanyl, urine Collection Time: 11/04/22 12:57 AM Result Value Ref Range FENTANYL SCREEN, URINE Positive Negative MSE: Mental Status Exam: Level of Consciousness: [x] Alert Orientation: Person: [x] yes [] no Date/Time: [x] yes [] no Place: [x] yes [] no [] Disoriented [] Confused [] Drowsy/Somnolent [] Tired [] Lethargic [] Asleep [] Could not be assessed Gait: [] Steady [] Unsteady [] Sitting [x] Lying [] Assisted Device Used Appearance: [x] Appropriate [] Disheveled [] Poor Hygiene [] Improved [] Unchanged [x] Appears Stated Age [] Appears Older [] Appears Younger Behavior/Manner: [x] Cooperative [] Pleasant [] Irritable [] Hostile [] Agitated [] Aggressive [] Combative [] Guarded [] Restricted [] Suspicious [] Withdrawn [] Slowed [] Hyperactive [] Other Motor Activity: [x] Normal [] Decreased [] Agitation [] Psychomotor retardation [] Tremor [] Abnormal involuntary movements [] Extrapyramidal side effects [] Tardive dyskinesia [] Other Speech: [x] Normal [] Spontaneous [] Nonverbal [] Soft [] Loud [] Noncommunicative [] Rapid [] Pressured [] Tangential [] Dysarthria [] Incoherent [] Other Language: [x] Normal [] Expressive Aphasia [] Fluent Aphasia [] Other Mood: [x] Euthymic [] Elated [] Euphoric [] Depressed [] Irritable [] Angry [] Anxious [] Fearful [] Apathetic [] Other Affect: [x] Mood Congruent [] Full [] Flat [] Broad [] Blunted [] Restricted [] Guarded [] Irritable [] Angry [] Labile [] Anxious [] Depressed [] Tearful [] Expansive [] Exaggerated [] Other Thought Process/Association: [x] Organized [] Logical [] Future Forward [] Disorganized [] Tangential [] Loose associations [] Circumstantial [] [place] [] Perseverative [] Poverty of Thought [] Racing Thoughts [] Flight of Ideas [] Thought Blocking [] Incoherent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 and dry Shruti Berg RN 07/11/22599 * Shaan Ortiz DO - 07/10/2022 10:35 PM EDT EMERGENCY DEPARTMENT ENCOUNTER Pt Name: Roro Valdivia Birthdate 1985 Date of evaluation: 07/10/2022 ED Provider: Shaan Ortiz DO CHIEF COMPLAINT Chief Complaint Patient presents with Addiction Problem HISTORY OF PRESENT ILLNESS (Location/Symptom, Timing/Onset, Context/Setting, Quality, Duration, Modifying Factors, Severity) Note limiting factors. I wore appropriate PPE for the entirety of this encounter. HPI Roro Valdivia is a 36 y.o. male who presents to the emergency department for addiction problem. The patient states that he has been using alcohol and drugs- fentanyl. Patient states he did have a drink earlier today, states that he does drink about 1/5 of alcohol daily. Came to the ED for detox. Nursing Notes were reviewed. Limitations to history: Outside historians: REVIEW OF SYSTEMS Review of Systems Pertinent positives and negatives as per HPI PAST MEDICAL HISTORY Past Medical History: Diagnosis Date GERD (gastroesophageal reflux disease) Hypertension Pancreatitis Seizures ([facility]) SVT (supraventricular tachycardia) ([facility]) ([facility]) Tourette syndrome SURGICAL HISTORY Past Surgical History: Procedure Laterality Date APPENDECTOMY CURRENT MEDICATIONS Previous Medications HYDROXYZINE PAMOATE (VISTARIL) 25 MG CAPSULE Take 1 capsule (25 mg) by mouth every 6 hours as needed for anxiety for up to 10 days. METOPROLOL SUCCINATE ER PO Take 25 mg by mouth. 2 tablets in the morning and 1 tablet at bedtime. OLANZAPINE (ZYPREXA) 5 MG TABLET Take 1 tablet (5 mg) by mouth Nightly. OMEPRAZOLE (PRILOSEC) [address] CAPSULE Take 40 mg by mouth every morning (before breakfast). Do notcrush or chew. SERTRALINE (ZOLOFT) 25 MG TABLET Take 1 tablet (25 mg) by mouth daily. Do not start before 2022. ALLERGIES Patient has no known allergies. FAMILY HISTORY Family History Problem Relation Name Age of Onset No Known Problems Mother No Known Problems Father SOCIAL HISTORY Social History Socioeconomic History Marital status: Single Tobacco Use Smoking status: Every Day Packs/day: 1.00 Types: Cigarettes Smokeless tobacco: Never Vaping Use Vaping Use: Never used Substance and Sexual Activity Alcohol use: Not Currently Comment: 1 liter black velvet and a case of beer per day Drug use: Yes Types: Cocaine, Methamphetamines, Oxycodone, Fentanyl, Heroin, Benzodiazepines SCREENINGS PHYSICAL EXAM ED Triage Vitals [07/10/22 2244] Temp Heart Rate Resp BP 36.7 C (98 F) 89 18 (!) 141/103 SpO2 Temp src Heart Rate Source Patient Position 98 % -- -- -- BP Location FiO2 (%) -- -- Physical Exam Vitals and nursing note reviewed. Constitutional: General: He is not in acute distress. Appearance: He is well-developed. HENT: Head: Normocephalic and atraumatic. Eyes: Conjunctiva/sclera: Conjunctivae normal. Cardiovascular: Rate and Rhythm: Normal rate and regular rhythm. Heart sounds: No murmur heard. Pulmonary: Effort: Pulmonary effort is normal. No respiratory distress. Breath sounds: Normal breath sounds. Abdominal: Palpations: Abdomen is soft. Tenderness: There is no abdominal tenderness. Musculoskeletal: General: No swelling. Cervical back: Neck supple. Skin: General: Skin is warm and dry. Capillary Refill: Capillary refill takes less than 2 seconds. Neurological: Mental Status: He is alert. Psychiatric: Mood and Affect: Mood normal. DIAGNOSTIC RESULTS RADIOLOGY (Per Emergency Physician): Interpretation per the Radiologist below, if available at the time of this note: No orders to display LABS: Labs Reviewed CBC WITH AUTO DIFFERENTIAL - Abnormal Result Value Auto WBC 8.2 RBC 4.47 Hemoglobin 13.9 Hematocrit 42.1 MCV 94.2 MCH 31.1 MCHC 33.0 RDW 13.2 Platelets 296 MPV 9.6 Neutrophils Relative 41.9 Lymphocytes Relative 50.2 (*) Monocytes Relative 6.2 Eosinophils Relative 1.0 Basophils Relative 0.5 Immature Grans % 0.2 (*) Neutrophils Absolute 3.4 Lymphocytes Absolute 4.1 Monocytes Absolute 0.5 Eosinophils Absolute 0.1 Basophils Absolute 0.0 Immature Grans Absolute 0.0 COMPREHENSIVE METABOLIC PANEL - Abnormal SODIUM 143 POTASSIUM 3.9 CHLORIDE 109 (*) CARBON DIOXIDE 23 ANION GAP 10 UREA NITROGEN 6 (*) CREATININE 0.69 GLUCOSE 107 (*) CALCIUM 8.9 AST (SGOT) 144 (*) ALT 172 (*) ALKALINE PHOSPHATASE 70 ALBUMIN 4.7 BILIRUBIN, TOTAL 0.3 TOTAL PROTEIN 8.1 eGFR >90.0 ETHANOL - Abnormal ETHANOL IN SER/PLAS 0.352 (*) Narrative: NOTE: This result is for medical treatment only. Analysis performed using non- forensic procedures. CK - Abnormal CK 172 (*) COMPLETE URINALYSIS - Abnormal Color, Urine Colorless Clarity, Urine Clear pH, Urine 5.5 Leukocytes, Urine Negative Nitrite, Urine Negative Protein, Urine Negative Glucose, Urine Normal Bilirubin, Urine Negative Ketones, Urine Negative Urobilinogen, Urine Normal Blood, Urine Negative SPECIFIC GRAVITY OF URINE (NUMERIC) 1.002 (*) SARS-COV-2, FLU A/B, AND RSV COMBO - Normal SARS-CoV-2 Not Detected Respiratory Syncytial Virus Not Detected Influenza A Not Detected Influenza B Not Detected Narrative: Methodology: real-time, RT-PCR The SARS-CoV-2, Flu A/B, and RSV Combo assay is intended for in vitro diagnostic use under the FDA Emergency Use Authorization (EUA). This test has not been FDA cleared or approved. In compliance with this authorization, please visit www.fda.gov/media/865082/download or www.fda.gov/media/095294/download to access the applicable information sheets. SALICYLATE - Normal SALICYLATES <1.0 DRUGS OF ABUSE AMPHETAMINE SCREEN Negative BARBITURATES SCREEN Negative BENZODIAZEPINE SCREEN Negative COCAINE METAB. SCREEN Negative METHADONE SCREEN Negative OPIATES SCREEN Negative OXYCODONE SCREEN Negative PHENCYCLIDINE SCREEN Negative Narrative: The expected value for all of the drugs listed above is Negative. The following drugs or drug groups have been screened for by Immunoassay at the following thresholds: Amphetamine class (1000 ng/mL) Barbiturates (200 ng/mL) Benzodiazepines (200 ng/mL) Cocaine (300 ng/mL) Methadone (300 ng/mL) Opiates (300 ng/mL) Oxycodone (100 ng/mL) PCP (25 ng/mL) NOTE: These results are for medical treatment only. Analysis performed using non-forensic procedures. POSITIVE results are NOT confirmed by a more specific alternative method unless requested. If confirmation is needed, request confirmation under separateorder. COMPLETE URINALYSIS WITH REFLEX TO CULTURE Narrative: The following orders were created for panel order Urinalysis Complete with reflex to Culture. Procedure Abnormality Status --------- ------ Complete Urinalysis[[id number]] Abnormal Final result Please view results for these tests on the individual orders. All other labs were within normal range or not returned as of this dictation. EMERGENCY DEPARTMENT COURSE and DIFFERENTIAL DIAGNOSIS/MDM: Vitals: Vitals: 07/10/22 2244 07/11/22 0026 07/11/22 0044 BP: (!) 141/103 130/83 134/82 Pulse: 89 74 74 Resp: 18 18 Temp: 36.7 C (98 F) SpO2: 98% 98% Weight: 104 kg (230 lb) Height: 1.829 m (6') Medications chlordiazePOXIDE (Librium) capsule 50 mg (has no administration in time range) LORazepam (Ativan) injection 2 mg (2 mg IntraVENous Given 07/11/2234) Patient presented to the emergency department for detox. Did have lab work consisting of a CMP which was relatively unremarkable AST and ALT are slightly elevated but nonconcerning at this time. Patient did have a CBC which was unremarkable, salicylates were negative, COVID was negative, UA was unremarkable. The patient's alcohol was elevated at 0.352, tox screen was negative., Patient's EKGwas independently interpreted no STEMI noted. Did review the patient's chart. Specifically a discharge summary from 06/29/2022 in which the patient had been admitted for alcohol withdrawal delirium. At that time the patient had elected to sign out AGAINST MEDICAL ADVICE. I did discuss the case with Dr. Alexandre, and we both agreed that we did have concerns and the fact there is only 1 detox bed left and the patient was recently admitted and signed out AGAINST MEDICAL ADVICE several days ago. I did go repeat evaluate the patient and spoke to him about my concerns. I explained to him that at this time we only have 1 bed remaining and that it really needs to go to somebody who is very adamant on wanting to get detox and assistance. The patient at this time states that he does want to be admitted and that he will not be signing out AGAINST MEDICAL ADVICE. That he iswanting to get clean at this time. Patient has since been admitted to the detox unit. The patient at this time has decided that he does not want to go to detox. He states that he is embarrassed because he sees the same people that are in the unit, states he does not like it when the detox unit takes his phone from him, and he states that at this time he just wants to go home. I explained to the patient that I felt that this was wasteful of a lot of people's time and energy,that we secured a room for him in which other people were not able to use the room, patient states that he understands but is deciding to just go home. MDM elements: The patient presented with chief complaint of alcohol use. The differential diagnosis associated with this patient's presentation includes alcohol, drugs, psych eval. Our workup consisted of ordering/reviewing: CBC, CMP UA EKG tox COVID test. Patient is in agreement with this plan. PROCEDURES: Unless otherwise noted below, none Procedures CRITICAL CARE TIME FINAL IMPRESSION No diagnosis found. DISPOSITION PATIENT REFERRED TO: No follow-up provider specified. DISCHARGE MEDICATIONS: New Prescriptions No medications on file (Comment: Please note this report has been produced using speech recognition software and may contain errors related to that system including errors in grammar, punctuation, and spelling, as well as words and phrases that may be inappropriate. If there are any questions or concerns please feel freeto contact the dictating provider for clarification.) Shaan Ortiz DO (electronically signed) Emergency Medicine Provider Shaan Ortiz DO 07/11/22 0228 Shaan Ortiz DO 07/11/22 0545 documented in this [facility]06-02-2023 NoteNOTE: This result is for medical treatment only. Analysis performed using non-forensic procedures. [id number] Phys[facility] Emergency department Note* Shaan Ortiz DO - 07/10/2022 10:35 PM EDT EMERGENCY DEPARTMENT ENCOUNTER Pt Name: Roro Valdivia Birthdate 1985 Date of evaluation: 07/10/2022 ED Provider: Shaan Ortiz DO CHIEF COMPLAINT Chief Complaint Patient presents with Addiction Problem HISTORY OF PRESENT ILLNESS (Location/Symptom, Timing/Onset, Context/Setting, Quality, Duration, Modifying Factors, Severity) Note limiting factors. I wore appropriate PPE for the entirety of this encounter. HPI Roro Valdivia is a 36 y.o. male who presents to the emergency department for addiction problem. The patient states that he has been using alcohol and drugs- fentanyl. Patient states he did have a drink earlier today, states that he does drink about 1/5 of alcohol daily. Came to the ED for detox. Nursing Notes were reviewed. Limitations to history: Outside historians: REVIEW OF SYSTEMS Review of Systems Pertinent positives and negatives as per HPI PAST MEDICAL HISTORY Past Medical History: Diagnosis Date GERD (gastroesophageal reflux disease) Hypertension Pancreatitis Seizures ([facility]) SVT (supraventricular tachycardia) (CMS/HCC) (H[facility]) Tourette syndrome SURGICAL HISTORY Past Surgical History: Procedure Laterality Date APPENDECTOMY CURRENT MEDICATIONS Previous Medications HYDROXYZINE PAMOATE (VISTARIL) 25 MG CAPSULE Take 1 capsule (25 mg) by mouth every 6 hours as needed for anxiety for up to 10 days. METOPROLOL SUCCINATE ER PO Take 25 mg by mouth. 2 tablets in the morning and 1 tablet at bedtime. OLANZAPINE (ZYPREXA) 5 MG TABLET Take 1 tablet (5 mg) by mouth Nightly. OMEPRAZOLE (PRILOSEC) [address] CAPSULE Take 40 mg by mouth every morning (before breakfast). Do notcrush or chew. SERTRALINE (ZOLOFT) 25 MG TABLET Take 1 tablet (25 mg) by mouth daily. Do not start before 2022. ALLERGIES Patient has no known allergies. FAMILY HISTORY Family History Problem Relation Name Age of Onset No Known Problems Mother No Known Problems Father SOCIAL HISTORY Social History Socioeconomic History Marital status: Single Tobacco Use Smoking status: Every Day Packs/day: 1.00 Types: Cigarettes Smokeless tobacco: Never Vaping Use Vaping Use: Never used Substance and Sexual Activity Alcohol use: Not Currently Comment: 1 liter black velvet and a case of beer per day Drug use: Yes Types: Cocaine, Methamphetamines, Oxycodone, Fentanyl, Heroin, Benzodiazepines SCREENINGS PHYSICAL EXAM ED Triage Vitals [07/10/22 2244] Temp Heart Rate Resp BP 36.7 C (98 F) 89 18 (!) 141/103 SpO2 Temp src Heart Rate Source Patient Position 98 % -- -- -- BP Location FiO2 (%) -- -- Physical Exam Vitals and nursing note reviewed. Constitutional: General: He is not in acute distress. Appearance: He is well-developed. HENT: Head: Normocephalic and atraumatic. Eyes: Conjunctiva/sclera: Conjunctivae normal. Cardiovascular: Rate and Rhythm: Normal rate and regular rhythm. Heart sounds: No murmur heard. Pulmonary: Effort: Pulmonary effort is normal. No respiratory distress. Breath sounds: Normal breath sounds. Abdominal: Palpations: Abdomen is soft. Tenderness: There is no abdominal tenderness. Musculoskeletal: General: No swelling. Cervical back: Neck supple. Skin: General: Skin is warm and dry. Capillary Refill: Capillary refill takes less than 2 seconds. Neurological: Mental Status: He is alert. Psychiatric: Mood and Affect: Mood normal. DIAGNOSTIC RESULTS RADIOLOGY (Per Emergency Physician): Interpretation per the Radiologist below, if available at the time of this note: No orders to display LABS: Labs Reviewed CBC WITH AUTO DIFFERENTIAL - Abnormal Result Value Auto WBC 8.2 RBC 4.47 Hemoglobin 13.9 Hematocrit 42.1 MCV 94.2 MCH 31.1 MCHC 33.0 RDW 13.2 Platelets 296 MPV 9.6 Neutrophils Relative 41.9 Lymphocytes Relative 50.2 (*) Monocytes Relative 6.2 Eosinophils Relative 1.0 Basophils Relative 0.5 Immature Grans % 0.2 (*) Neutrophils Absolute 3.4 Lymphocytes Absolute 4.1 Monocytes Absolute 0.5 Eosinophils Absolute 0.1 Basophils Absolute 0.0 Immature Grans Absolute 0.0 COMPREHENSIVE METABOLIC PANEL - Abnormal SODIUM 143 POTASSIUM 3.9 CHLORIDE 109 (*) CARBON DIOXIDE 23 ANION GAP 10 UREA NITROGEN 6 (*) CREATININE 0.69 GLUCOSE 107 (*) CALCIUM 8.9 AST (SGOT) 144 (*) ALT 172 (*) ALKALINE PHOSPHATASE 70 ALBUMIN 4.7 BILIRUBIN, TOTAL 0.3 TOTAL PROTEIN 8.1 eGFR >90.0 ETHANOL - Abnormal ETHANOL IN SER/PLAS 0.352 (*) Narrative: NOTE: This result is for medical treatment only. Analysis performed using non- forensic procedures. CK - Abnormal CK 172 (*) COMPLETE URINALYSIS - Abnormal Color, Urine Colorless Clarity, Urine Clear pH, Urine 5.5 Leukocytes, Urine Negative Nitrite, Urine Negative Protein, Urine Negative Glucose, Urine Normal Bilirubin, Urine Negative Ketones, Urine Negative Urobilinogen, Urine Normal Blood, Urine Negative SPECIFIC GRAVITY OF URINE (NUMERIC) 1.002 (*) SARS-COV-2, FLU A/B, AND RSV COMBO - Normal SARS-CoV-2 Not Detected Respiratory Syncytial Virus Not Detected Influenza A Not Detected Influenza B Not Detected Narrative: Methodology: real-time, RT-PCR The SARS-CoV-2, Flu A/B, and RSV Combo assay is intended for in vitro diagnostic use under the FDA Emergency Use Authorization (EUA). This test has not been FDA cleared or approved. In compliance with this authorization, please visit www.fda.gov/media/529318/download or www.fda.gov/media/432695/download to access the applicable information sheets. SALICYLATE - Normal SALICYLATES <1.0 DRUGS OF ABUSE AMPHETAMINE SCREEN Negative BARBITURATES SCREEN Negative BENZODIAZEPINE SCREEN Negative COCAINE METAB. SCREEN Negative METHADONE SCREEN Negative OPIATES SCREEN Negative OXYCODONE SCREEN Negative PHENCYCLIDINE SCREEN Negative Narrative: The expected value for all of the drugs listed above is Negative. The following drugs or drug groups have been screened for by Immunoassay at the following thresholds: Amphetamine class (1000 ng/mL) Barbiturates (200 ng/mL) Benzodiazepines (200 ng/mL) Cocaine (300 ng/mL) Methadone (300 ng/mL) Opiates (300 ng/mL) Oxycodone (100 ng/mL) PCP (25 ng/mL) NOTE: These results are for medical treatment only. Analysis performed using non-forensic procedures. POSITIVE results are NOT confirmed by a more specific alternative method unless requested. If confirmation is needed, request confirmation under separateorder. COMPLETE URINALYSIS WITH REFLEX TO CULTURE Narrative: The following orders were created for panel order Urinalysis Complete with reflex to Culture. Procedure Abnormality Status --------- ------ Complete Urinalysis[[id number]] Abnormal Final result Please view results for these tests on the individual orders. All other labs were within normal range or not returned as of this dictation. EMERGENCY DEPARTMENT COURSE and DIFFERENTIAL DIAGNOSIS/MDM: Vitals: Vitals: 07/10/22 2244 07/11/22 0026 07/11/22 0044 BP: (!) 141/103 130/83 134/82 Pulse: 89 74 74 Resp: 18 18 Temp: 36.7 C (98 F) SpO2: 98% 98% Weight: 104 kg (230 lb) Height: 1.829 m (6') Medications chlordiazePOXIDE (Librium) capsule 50 mg (has no administration in time range) LORazepam (Ativan) injection 2 mg (2 mg IntraVENous Given 07/11/22 0035) Patient presented to the emergency department for detox. Did have lab work consisting of a CMP which was relatively unremarkable AST and ALT are slightly elevated but nonconcerning at this time. Patient did have a CBC which was unremarkable, salicylates were negative, COVID was negative, UA was unremarkable. The patient's alcohol was elevated at 0.352, tox screen was negative., Patient's EKGwas independently interpreted no STEMI noted. Did review the patient's chart. Specifically a discharge summary from 06/29/2022 in which the patient had been admitted for alcohol withdrawal delirium. At that time the patient had elected to sign out AGAINST MEDICAL ADVICE. I did discuss the case with Dr. Alexandre, and we both agreed that we did have concerns and the fact there is only 1 detox bed left and the patient was recently admitted and signed out AGAINST MEDICAL ADVICE several days ago. I did go repeat evaluate the patient and spoke to him about my concerns. I explained to him that at this time we only have 1 bed remaining and that it really needs to go to somebody who is very adamant on wanting to get detox and assistance. The patient at this time states that he does want to be admitted and that he will not be signing out AGAINST MEDICAL ADVICE. That he iswanting to get clean at this time. Patient has since been admitted to the detox unit. The patient at this time has decided that he does not want to go to detox. He states that he is embarrassed because he sees the same people that are in the unit, states he does not like it when the detox unit takes his phone from him, and he states that at this time he just wants to go home. I explained to the patient that I felt that this was wasteful of a lot of people's time and energy,that we secured a room for him in which other people were not able to use the room, patient states that he understands but is deciding to just go home. MDM elements: The patient presented with chief complaint of alcohol use. The differential diagnosis associated with this patient's presentation includes alcohol, drugs, psych eval. Our workup consisted of ordering/reviewing: CBC, CMP UA EKG tox COVID test. Patient is in agreement with this plan. PROCEDURES: Unless otherwise noted below, none Procedures CRITICAL CARE TIME FINAL IMPRESSION No diagnosis found. DISPOSITION PATIENT REFERRED TO: No follow-up provider specified. DISCHARGE MEDICATIONS: New Prescriptions No medications on file (Comment: Please note this report has been produced using speech recognition software and may contain errors related to that system including errors in grammar, punctuation, and spelling, as well as words and phrases that may be inappropriate. If there are any questions or concerns please feel freeto contact the dictating provider for clarification.) Shaan Ortiz DO (electronically signed) Emergency Medicine Provider Shaan Ortiz DO 07/11/22 0228 Shaan Ortiz DO 07/11/22 0545 [id number] Emergency department Note* JOSÉ ANTONIO Mercedes CNP - 06/12/2022 3:16 PM EDT EMERGENCY DEPARTMENT ENCOUNTER Pt Name: Roro Valdivia Birthdate 1985 Date of evaluation: 06/12/2022 ED Provider: JOSÉ ANTONIO Mercedes CNP Patient seen independently within my scope of practice with an Emergency Medicine attending available for supervision. CHIEF COMPLAINT Chief Complaint Patient presents with Foot Injury Pt coming in for left foot pain without injury that began this morning HISTORY OF PRESENT ILLNESS (Location/Symptom, Timing/Onset, Context/Setting, Quality, Duration, Modifying Factors, Severity) Note limiting factors. I wore appropriate PPE for the entirety of this encounter. HPI Roro Valdivia is a 36 y.o. male who presents to the emergency department with pain in the base ofthe great toe of the left foot. No fall or trauma. Patient states it started hurting late yesterdayworse this morning. Denies prior surgery on the foot. Denies any other complaints. Nursing Notes were reviewed. Limitations to history: None Outside historians: None REVIEW OF SYSTEMS Review of Systems Constitutional: Negative for activity change, appetite change, chills and fever. HENT: Negative for congestion, nosebleeds, postnasal drip, sore throat and trouble swallowing. Eyes: Negative for pain and visual disturbance. Respiratory: Negative for cough and shortness of breath. Cardiovascular: Negative for chest pain. Gastrointestinal: Negative for abdominal pain, nausea and vomiting. Genitourinary: Negative for dysuria, flank pain, hematuria, penile discharge, scrotal swelling and testicular pain. Musculoskeletal: Positive for arthralgias, joint swelling and myalgias. Negative for back pain. Skin: Negative for rash and wound. Neurological: Negative for dizziness, syncope, weakness and light-headedness. Psychiatric/Behavioral: Negative for agitation and confusion. All other systems reviewed and are negative. Pertinent positives and negatives as per HPI. PAST MEDICAL HISTORY Past Medical History: Diagnosis Date CAD (coronary artery disease) GERD (gastroesophageal reflux disease) Hypertension Pancreatitis SVT (supraventricular tachycardia) ([facility]) ([facility]) Tourette syndrome SURGICAL HISTORY Past Surgical History: Procedure Laterality Date APPENDECTOMY CURRENT MEDICATIONS Previous Medications HYDROXYZINE PAMOATE (VISTARIL) 25 MG CAPSULE Take 1 capsule (25 mg) by mouth every 6 hours as needed for anxiety for up to 10 days. METOPROLOL SUCCINATE ER PO Take 25 mg by mouth. 2 tablets in the morning and 1 tablet at bedtime. METOPROLOL TARTRATE (LOPRESSOR) 25 MG TABLET Take 50 mg by mouth daily. OMEPRAZOLE (PRILOSEC) [address] CAPSULE Take by mouth. OMEPRAZOLE (PRILOSEC) 40 MG DR CAPSULE Take 40 mg by mouth every morning (before breakfast). Do notcrush or chew. SERTRALINE (ZOLOFT) 25 MG TABLET Take 1 tablet (25 mg) by mouth daily. Do not start before 2022. ALLERGIES Patient has no known allergies. FAMILY HISTORY Family History Problem Relation Name Age of Onset No Known Problems Mother No Known Problems Father SOCIAL HISTORY Social History Socioeconomic History Marital status: Single Tobacco Use Smoking status: Every Day Packs/day: 1.00 Types: Cigarettes Smokeless tobacco: Never Substance and Sexual Activity Alcohol use: Yes Alcohol/week: 12.0 standard drinks Types: 12 Standard drinks or equivalent per week Comment: 1 gallon of vodka, 12 pack of beer daily Drug use: Yes Types: Cocaine SCREENINGS PHYSICAL EXAM ED Triage Vitals [06/12/22 1519] Temp Heart Rate Resp BP 36.3 C (97.3 F) 91 16 (!) 147/101 SpO2 Temp Source Heart Rate Source Patient Position 97 % Temporal Monitor -- BP Location FiO2 (%) -- -- Physical Exam Vitals and nursing note reviewed. Constitutional: General: He is not in acute distress. Appearance: Normal appearance. He is normal weight. He is not ill-appearing or toxic-appearing. HENT: Head: Normocephalic and atraumatic. Right Ear: External ear normal. Left Ear: External ear normal. Mouth/Throat: Mouth: Mucous membranes are moist. Pharynx: Oropharynx is clear. Eyes: Extraocular Movements: Extraocular movements intact. Conjunctiva/sclera: Conjunctivae normal. Pupils: Pupils are equal, round, and reactive to light. Musculoskeletal: Cervical back: Normal range of motion and neck supple. No rigidity. Comments: Pain with range of motion, swelling and warmth at the first MTP joint, DP pulse 2+, no obvious deformity foot is neurovascularly intact. Lymphadenopathy: Cervical: No cervical adenopathy. Skin: General: Skin is warm and dry. Capillary Refill: Capillary refill takes less than 2 seconds. Coloration: Skin is not jaundiced or pale. Findings: No bruising or erythema. Neurological: General: No focal deficit present. Mental Status: He is alert and oriented to person, place, and time. Mental status is at baseline. Psychiatric: Mood and Affect: Mood normal. DIAGNOSTIC RESULTS RADIOLOGY (Per Emergency Physician): Interpretation per the Radiologist below, if available at the time of this note: No orders to display LABS: Labs Reviewed - No data to display All other labs were within normal range or not returned as of this dictation. EMERGENCY DEPARTMENT COURSE and DIFFERENTIAL DIAGNOSIS/MDM: Vitals: Vitals: 06/12/22 1519 BP: (!) 147/101 Pulse: 91 Resp: 16 Temp: 36.3 C (97.3 F) TempSrc: Temporal SpO2: 97% Medications predniSONE (Deltasone) tablet 40 mg (has no administration in time range) colchicine tablet 1.2 mg (has no administration in time range) traMADol (Ultram) tablet 50 mg (has no administration in time range) MDM elements: The patient presented with chief complaint of with pain in the base of the great toe of the left foot. No fall or trauma. Patient states it started hurting late yesterday worse this morning. Denies prior surgery on the foot. Denies any other complaints.. The differential diagnosis associated with this patient's presentation includes gout, pseudogout, arthritis. Diagnostic tests considered but not performed: Considered x-ray but there was no trauma The patient will be discharged on prednisone and indomethacin follow-up with PCP as this is likely gout. Patient is in agreement with this plan. PROCEDURES: Unless otherwise noted below, none Procedures CRITICAL CARE TIME None FINAL IMPRESSION 1. Acute gout of left foot, unspecified cause DISPOSITION Discharge 06/12/2022 03:59:10 PM PATIENT REFERRED TO: Neetu A Tino [address] [facility] [facility] [id number] Schedule an appointment as soon as possible for a visit If symptoms worsen DISCHARGE MEDICATIONS: New Prescriptions INDOMETHACIN (INDOCIN) 50 MG CAPSULE Take 1 capsule (50 mg) by mouth in the morning and 1 capsule (50 mg) in the evening. Take with meals. Do all this for 10 days. PREDNISONE (DELTASONE) 20 MG TABLET Take 2 tablets (40 mg) by mouth daily for 5 days. (Comment: Please note this report has been produced using speech recognition software and may contain errors related to that system including errors in grammar, punctuation, and spelling, as well as words and phrases that may be inappropriate. If there are any questions or concerns please feel freeto contact the dictating provider for clarification.) JOSÉ ANTONIO Mercedes CNP (electronically signed) Emergency Medicine Provider JOSÉ ANTONIO Mercedes CNP 06/12/22 1601 documented in this [facility]05-04-2023 Physician Emergency department Note* JOSÉ ANTONIO Mercedes CNP - 06/12/2022 3:16 PM EDT EMERGENCY DEPARTMENT ENCOUNTER Pt Name: Roro Valdivia Birthdate 1985 Date of evaluation: 06/12/2022 ED Provider: JOSÉ ANTONIO Mercedes CNP Patient seen independently within my scope of practice with an Emergency Medicine attending available for supervision. CHIEF COMPLAINT Chief Complaint Patient presents with Foot Injury Pt coming in for left foot pain without injury that began this morning HISTORY OF PRESENT ILLNESS (Location/Symptom, Timing/Onset, Context/Setting, Quality, Duration, Modifying Factors, Severity) Note limiting factors. I wore appropriate PPE for the entirety of this encounter. HPI Roro Valdivia is a 36 y.o. male who presents to the emergency department with pain in the base ofthe great toe of the left foot. No fall or trauma. Patient states it started hurting late yesterdayworse this morning. Denies prior surgery on the foot. Denies any other complaints. Nursing Notes were reviewed. Limitations to history: None Outside historians: None REVIEW OF SYSTEMS Review of Systems Constitutional: Negative for activity change, appetite change, chills and fever. HENT: Negative for congestion, nosebleeds, postnasal drip, sore throat and trouble swallowing. Eyes: Negative for pain and visual disturbance. Respiratory: Negative for cough and shortness of breath. Cardiovascular: Negative for chest pain. Gastrointestinal: Negative for abdominal pain, nausea and vomiting. Genitourinary: Negative for dysuria, flank pain, hematuria, penile discharge, scrotal swelling and testicular pain. Musculoskeletal: Positive for arthralgias, joint swelling and myalgias. Negative for back pain. Skin: Negative for rash and wound. Neurological: Negative for dizziness, syncope, weakness and light-headedness. Psychiatric/Behavioral: Negative for agitation and confusion. All other systems reviewed and are negative. Pertinent positives and negatives as per HPI. PAST MEDICAL HISTORY Past Medical History: Diagnosis Date CAD (coronary artery disease) GERD (gastroesophageal reflux disease) Hypertension Pancreatitis SVT (supraventricular tachycardia) ([facility]) ([facility]) Tourette syndrome SURGICAL HISTORY Past Surgical History: Procedure Laterality Date APPENDECTOMY CURRENT MEDICATIONS Previous Medications HYDROXYZINE PAMOATE (VISTARIL) 25 MG CAPSULE Take 1 capsule (25 mg) by mouth every 6 hours as needed for anxiety for up to 10 days. METOPROLOL SUCCINATE ER PO Take 25 mg by mouth. 2 tablets in the morning and 1 tablet at bedtime. METOPROLOL TARTRATE (LOPRESSOR) 25 MG TABLET Take 50 mg by mouth daily. OMEPRAZOLE (PRILOSEC) [address] CAPSULE Take by mouth. OMEPRAZOLE (PRILOSEC) [address] CAPSULE Take 40 mg by mouth every morning (before breakfast). Do notcrush or chew. SERTRALINE (ZOLOFT) 25 MG TABLET Take 1 tablet (25 mg) by mouth daily. Do not start before 2022. ALLERGIES Patient has no known allergies. FAMILY HISTORY Family History Problem Relation Name Age of Onset No Known Problems Mother No Known Problems Father SOCIAL HISTORY Social History Socioeconomic History Marital status: Single Tobacco Use Smoking status: Every Day Packs/day: 1.00 Types: Cigarettes Smokeless tobacco: Never Substance and Sexual Activity Alcohol use: Yes Alcohol/week: 12.0 standard drinks Types: 12 Standard drinks or equivalent per week Comment: 1 gallon of vodka, 12 pack of beer daily Drug use: Yes Types: Cocaine SCREENINGS PHYSICAL EXAM ED Triage Vitals [06/12/22 1519] Temp Heart Rate Resp BP 36.3 C (97.3 F) 91 16 (!) 147/101 SpO2 Temp Source Heart Rate Source Patient Position 97 % Temporal Monitor -- BP Location FiO2 (%) -- -- Physical Exam Vitals and nursing note reviewed. Constitutional: General: He is not in acute distress. Appearance: Normal appearance. He is normal weight. He is not ill-appearing or toxic-appearing. HENT: Head: Normocephalic and atraumatic. Right Ear: External ear normal. Left Ear: External ear normal. Mouth/Throat: Mouth: Mucous membranes are moist. Pharynx: Oropharynx is clear. Eyes: Extraocular Movements: Extraocular movements intact. Conjunctiva/sclera: Conjunctivae normal. Pupils: Pupils are equal, round, and reactive to light. Musculoskeletal: Cervical back: Normal range of motion and neck supple. No rigidity. Comments: Pain with range of motion, swelling and warmth at the first MTP joint, DP pulse 2+, no obvious deformity foot is neurovascularly intact. Lymphadenopathy: Cervical: No cervical adenopathy. Skin: General: Skin is warm and dry. Capillary Refill: Capillary refill takes less than 2 seconds. Coloration: Skin is not jaundiced or pale. Findings: No bruising or erythema. Neurological: General: No focal deficit present. Mental Status: He is alert and oriented to person, place, and time. Mental status is at baseline. Psychiatric: Mood and Affect: Mood normal. DIAGNOSTIC RESULTS RADIOLOGY (Per Emergency Physician): Interpretation per the Radiologist below, if available at the time of this note: No orders to display LABS: Labs Reviewed - No data to display All other labs were within normal range or not returned as of this dictation. EMERGENCY DEPARTMENT COURSE and DIFFERENTIAL DIAGNOSIS/MDM: Vitals: Vitals: 06/12/22 1519 BP: (!) 147/101 Pulse: 91 Resp: 16 Temp: 36.3 C (97.3 F) TempSrc: Temporal SpO2: 97% Medications predniSONE (Deltasone) tablet 40 mg (has no administration in time range) colchicine tablet 1.2 mg (has no administration in time range) traMADol (Ultram) tablet 50 mg (has no administration in time range) MDM elements: The patient presented with chief complaint of with pain in the base of the great toe of the left foot. No fall or trauma. Patient states it started hurting late yesterday worse this morning. Denies prior surgery on the foot. Denies any other complaints.. The differential diagnosis associated with this patient's presentation includes gout, pseudogout, arthritis. Diagnostic tests considered but not performed: Considered x-ray but there was no trauma The patient will be discharged on prednisone and indomethacin follow-up with PCP as this is likely gout. Patient is in agreement with this plan. PROCEDURES: Unless otherwise noted below, none Procedures CRITICAL CARE TIME None FINAL IMPRESSION 1. Acute gout of left foot, unspecified cause DISPOSITION Discharge 06/12/2022 03:59:10 PM PATIENT REFERRED TO: Neetu Jiménez [address] [place] [address]., [address] [facility] [phone] Schedule an appointment as soon as possible for a visit If symptoms worsen DISCHARGE MEDICATIONS: New Prescriptions INDOMETHACIN (INDOCIN) 50 MG CAPSULE Take 1 capsule (50 mg) by mouth in the morning and 1 capsule (50 mg) in the evening. Take with meals. Do all this for 10 days. PREDNISONE (DELTASONE) 20 MG TABLET Take 2 tablets (40 mg) by mouth daily for 5 days. (Comment: Please note this report has been produced using speech recognition software and may contain errors related to that system including errors in grammar, punctuation, and spelling, as well as words and phrases that may be inappropriate. If there are any questions or concerns please feel freeto contact the dictating provider for clarification.) JOSÉ ANTONIO Mercedes CNP (electronically signed) Emergency Medicine Provider JOSÉ ANTONIO Mercedes CNP 06/12/22 1601 [id number] Emergency [facility] Note* Ana Osorio RN - 05/25/2022 10:53 PM EDT DM transported patient without receiving report. Paperwork and 1 bag of belongings sent with QUANG Abrams. This RN was told that EMS stated they would remove IV. Ana Osorio RN 05/25/222254 Ana Osorio RN 05/25/222312 [facility] Emergency department Note* Ana Osorio RN - 05/25/2022 10:53 PM EDT DM transported patient without receiving report. Paperwork and 1 bag of belongings sent with QUANG Abrams. This RN was told that EMS stated they would remove IV. Ana Osorio RN 05/25/222254 Ana Osorio RN 05/25/222312 * Jose Alberto Mena - 05/25/2022 10:15 PM EDT EMS at bedside for transport. EMS advised to check in with assigned RN before leaving. Ems loaded pt to [facility] and transported with 1 belonging bag Jose Alberto Mena 05/25/222216 * Ana Osorio RN - 05/25/2022 9:35 PM EDT Patient is resting in bed with eyes closed. Respirations even and unlabored. No distress noted. Ana Osorio RN 05/25/222134 * Ana Osorio RN - 05/25/2022 8:25 PM EDT This RN introduced herself to the patient. Patient is resting in bed. Respirations even and unlabored. No distress noted. Patient given cranberry juice. Vitals taken. Patient waiting to be transported to [facility]. Ana Osorio RN 05/25/222024 * Zarina Eduardo - 05/25/2022 6:29 PM EDT Meal tray at bedside. Zarina Eduardo 05/25/22 182 * Savanna Carvalho RN - 05/25/2022 6:18 PM EDT Pt resting in bed . Pt declines need . Report called to [facility] Savanna Carvalho RN 05/25/221818 * Zarina Eduardo - 05/25/2022 6:01 PM EDT Meal tray ordered for pt. Zarina Jayce 05/25/22 180 * Zarina Jayce - 05/25/2022 5:42 PM EDT This note placed into wrong pt chart. Note erased and replaced with this notice of mistake. Zarina Jayce 05/25/22 1743 Zarina Jayce 05/25/22 175 * Zarina Jayce - 05/25/2022 5:35 PM EDT This medic placed a note in wrong pts chart. Original note replaced with this note. Zarina Jayce 05/25/22 1750 Zarina Jayce 05/25/22 175 * Zarina Jayce - 05/25/2022 4:33 PM EDT JOSE GUADALUPE Rosenberg at bedside to medicate pt. Zarina Roeo 05/25/22 1633 * Zarina Jayce - 05/25/2022 4:[address] Hamlin at bedside. Zarina Barbosaivo 05/25/22 1627 * Zarina Jayce - 05/25/2022 4:14 PM EDT JOSE GUADALUPE Corrales at bedside to obtain vitals. Zarina Barbosaivo 05/25/22 1615 * Zarina Roeo - 05/25/2022 4:08 PM EDT Pt changed into 2 gowns by JOSE GUADALUPE Corrales. Pt wanded by protective services, belongings secured in 1 bag.Pt resting comfortably in bed at this time. Wanding and belongings check complete. Zarina Jayce 05/25/22 1609 * Savanna Carvalho RN - 05/25/2022 4:07 PM EDT Pt changed to into a gown . Pt was sent from [facility] for elevated CK level. Security here to check pt belongings. Monitor on to watch patient for a safety sit Savanna Carvalho RN 05/25/22 1605 * Mary Hamlin MD - 05/25/2022 3:[address] [facility] EMERGENCY DEPT EMERGENCY DEPARTMENT ENCOUNTER Pt Name: Roro Valdivia Birthdate 1985 Date of evaluation: 05/25/2022 Provider: Mary Hamlin MD CHIEF COMPLAINT Chief Complaint Patient presents with Labs Only Pt presents to ED via EMS from [facility] for labs. Per EMS, pt has elevated CK level and [facility] is requesting IV fluids and repeat CK level only in order for pt to go back to [facility]. Pt is pink slipped from [facility] at this time. HISTORY OF PRESENT ILLNESS (Location/Symptom, Timing/Onset, Context/Setting, Quality, Duration, Modifying Factors, Severity) Note limiting factors. I wore a surgical mask for the entirety of this encounter. Roro Valdivia is a 36 y.o. male with a past medical history of CAD, GERD, hypertension, pancreatitis, Tourette's, history of prior appendectomy presenting back from peds because they want a repeat CK because his CK was 599 and apparently their limit is 400. Will give fluids and redraw CK. We willdraw CMP as well. Patient himself has no acute complaints right now, says I have been in here for 3 days and I just want to go home and denies SI, HI, AVH. Past Medical history reviewed. REVIEW OF SYSTEMS Negative except for above HPI Review of Systems PAST MEDICAL HISTORY Past Medical History: Diagnosis Date CAD (coronary artery disease) GERD (gastroesophageal reflux disease) Hypertension Pancreatitis SVT (supraventricular tachycardia) (CMS/HCC) ([facility]) Tourette syndrome SURGICAL HISTORY Past Surgical History: Procedure Laterality Date APPENDECTOMY CURRENT MEDICATIONS Previous Medications HYDROXYZINE PAMOATE (VISTARIL) 25 MG CAPSULE Take 1 capsule (25 mg) by mouth every 6 hours as needed for anxiety for up to 10 days. METOPROLOL SUCCINATE ER PO Take 25 mg by mouth. 2 tablets in the morning and 1 tablet at bedtime. METOPROLOL TARTRATE (LOPRESSOR) 25 MG TABLET Take 50 mg by mouth daily. OMEPRAZOLE (PRILOSEC) [address] CAPSULE Take by mouth. OMEPRAZOLE (PRILOSEC) [address] CAPSULE Take 40 mg by mouth every morning (before breakfast). Do notcrush or chew. SERTRALINE (ZOLOFT) 25 MG TABLET Take 1 tablet (25 mg) by mouth daily. Do not start before 2022. ALLERGIES Patient has no known allergies. FAMILY HISTORY Family History Problem Relation Name Age of Onset No Known Problems Mother No Known Problems Father SOCIAL HISTORY Social History Socioeconomic History Marital status: Single Tobacco Use Smoking status: Every Day Packs/day: 0.25 Types: Cigarettes Smokeless tobacco: Never Substance and Sexual Activity Alcohol use: Yes Alcohol/week: 12.0 standard drinks Types: 12 Standard drinks or equivalent per week Comment: 1 gallon of vodka, 12 pack of beer daily Drug use: Yes Types: Cocaine SCREENINGS PHYSICAL EXAM (up to 7 for level 4, 8 or more for level 5) @EDTRIAGEVSS@ Physical Exam Constitutional: Appearance: Normal appearance. Comments: Reclining calmly in bed watching TV with his arms behind his head. No acute distress. HENT: Head: Normocephalic and atraumatic. Nose: Nose normal. Mouth/Throat: Mouth: Mucous membranes are moist. Eyes: Conjunctiva/sclera: Conjunctivae normal. Cardiovascular: Rate and Rhythm: Normal rate. Pulmonary: Effort: Pulmonary effort is normal. No respiratory distress. Abdominal: General: Abdomen is flat. There is no distension. Musculoskeletal: General: Normal range of motion. Skin: General: Skin is warm and dry. Capillary Refill: Capillary refill takes less than 2 seconds. Neurological: Mental Status: He is alert. Psychiatric: Behavior: Behavior normal. EMERGENCY DEPARTMENT COURSE and DIFFERENTIAL DIAGNOSIS/MDM: Vitals: Vitals: 05/25/22 1624 BP: (!) 151/94 Pulse: 64 Resp: 16 SpO2: 98% Weight: 107 kg (235 lb) Height: 1.829 m (6') Medications sodium chloride 0.9 % bolus 1,000 mL (1,000 mL IntraVENous New Bag 05/25/22 1629) LORazepam (Ativan) tablet 2 mg (2 mg Oral Given 05/25/22 1631) Medical Decision Making Roro Valdivia is a 36 y.o. male with a past medical history of CAD, GERD, hypertension, pancreatitis, Tourette's, history of prior appendectomy presenting back from peds because they want a repeat CK because his CK was 599 and apparently their limit is 400. Will give fluids and redraw CK. We willdraw CMP as well. Patient himself has no acute complaints right now, says I have been in here for 3 days and I just want to go home and denies SI, HI, AVH. Dorsum mild anxiety because he has not had a drink in a few days, but he is not jittery on exam and is calm and cooperative with no signs of florid alcohol withdrawal. Will provide p.o. Ativan 2 mg. Problems Addressed: Anxiety: complicated acute illness or injury Amount and/or Complexity of Data Reviewed Labs: ordered. Decision-making details documented in ED Course. Risk Prescription drug management. . All independent interpretations of EKGs are documented in [facility]. ED Course as of 05/25/22 172 Sun May 25, 2022 171 CK: 105 [BJ] 171 Patient is medically cleared for return transfer to [facility]. CK is 105 and creatinine is 0.61. [BJ] ED Course User Index [BJ] Mary Hamlin MD Diagnoses as of 05/25/221720 Anxiety CONSULTS: None PROCEDURES: Unless otherwise noted below, none Procedures FINAL IMPRESSION 1. Anxiety DISPOSITION/PLAN DISPOSITION Transfer To Another Facility 05/25/2022 05:19:32 PM PATIENT REFERRED TO: Neetu Jiménez [facility], [address] [facility] [id number] DISCHARGE MEDICATIONS: New Prescriptions No medications on file @[facility]([id number]:LAST:1)@ (Please note: Portions of this note were completed with a voice recognition program. Efforts were made to edit the dictations but occasionally words and phrases are mis-transcribed.) Form [id number] Mary Hamlin MD (electronically signed) Emergency Medicine Provider Mary Hamlin MD 05/25/221720 * Nikolai Kaur RN - 05/25/2022 3:52 PM EDT Bed: 35 Expected date: Expected time: Means of arrival: Comments: Nikolai Kaur RN 05/25/22 1553 documented in this [facility]04-16-2023 Emergency department Note* Jose Alberto Mena - 05/25/2022 10:15 PM EDT EMS at bedside for transport. EMS advised to check in with assigned RN before leaving. Ems loaded pt to [facility] and transported with 1 belonging bag Jose Alberto Mena 05/25/222216 [id number] Emergency department Note* Ana Osorio RN - 05/25/2022 9:35 PM EDT Patient is resting in bed with eyes closed. Respirations even and unlabored. No distress noted. Ana Osorio RN 05/25/222134 [id number] Emergency department Note* Ana Osorio RN - 05/25/2022 8:25 PM EDT This RN introduced herself to the patient. Patient is resting in bed. Respirations even and unlabored. No distress noted. Patient given cranberry juice. Vitals taken. Patient waiting to be transported to [facility]. Ana Osorio RN 05/25/222024 [address]Aeqvcj57-39-1874 Emergency department Note* Zarina Eduardo - 05/25/2022 6:29 PM EDT Meal tray at bedside. Zarina Eduardo 05/25/22 182 [id number] Emergency department Note* Savanna Carvalho RN - 05/25/2022 6:18 PM EDT Pt resting in bed . Pt declines need . Report called to COLT Carvalho RN 05/25/22 181 [id number] Emergency department Note* Zarina Eduardo - 05/25/2022 6:01 PM EDT Meal tray ordered for pt. Zarina Roeo 05/25/22 1801 [id number] Emergency department Note* Zarina Jayce - 05/25/2022 5:42 PM EDT This note placed into wrong pt chart. Note erased and replaced with this notice of mistake. Zarina Jayce 05/25/22 1743 Zarina Jayce 05/25/22 1751 [id number] Emergency department Note* Zarina Barbosaivo - 05/25/2022 5:35 PM EDT This medic placed a note in wrong pts chart. Original note replaced with this note. Zarina Jayce 05/25/22 1750 Zarina Jayce 05/25/22 1751 [id number] Emergency department Note* Zarina Jayce - 05/25/2022 4:33 PM EDT JOSE GUADALUPE Rosenberg at bedside to medicate pt. Zarina Jayce 05/25/22 1633 [id number] Emergency department Note* Zarina Jayce - 05/25/2022 4:[address] Hamlin at bedside. Zarina Jayce 05/25/22 1627 [id number] Emergency department Note* Zarina Jayce - 05/25/2022 4:14 PM EDT JOSE GUADALUPE Corrales at bedside to obtain vitals. Zarina Eduardo 05/25/22 1615 [id number] Emergency department Note* Zarina Eduardo - 05/25/2022 4:08 PM EDT Pt changed into 2 gowns by JOSE GUADALUPE Corrales. Pt wanded by protective services, belongings secured in 1 bag.Pt resting comfortably in bed at this time. Wanding and belongings check complete. Zarina Eduardo 05/25/22 1609 [facility] [id number] Emergency department Note* Savanna Carvalho RN - 05/25/2022 4:07 PM EDT Pt changed to into a gown . Pt was sent from [facility] for elevated CK level. Security here to check pt belongings. Monitor on to watch patient for a safety sit Savanna Carvalho RN 05/25/22 1609 [facility] [id number] Emergency department Note* Nikolai Kaur RN - 05/25/2022 3:52 PM EDT Bed: 35 Expected date: Expected time: Means of arrival: Comments: Nikolai Kaur RN 05/25/22 1553 [id number] Emergency department Note* Mary Hamlin MD - 05/25/2022 3:[address] [facility] EMERGENCY DEPT EMERGENCY DEPARTMENT ENCOUNTER Pt Name: Roro Valdivia Birthdate 1985 Date of evaluation: 05/25/2022 Provider: Mary Hamlin MD CHIEF COMPLAINT Chief Complaint Patient presents with Labs Only Pt presents to ED via EMS from [facility] for labs. Per EMS, pt has elevated CK level and [facility] is requesting IV fluids and repeat CK level only in order for pt to go back to [facility]. Pt is pink slipped from [facility] at this time. HISTORY OF PRESENT ILLNESS (Location/Symptom, Timing/Onset, Context/Setting, Quality, Duration, Modifying Factors, Severity) Note limiting factors. I wore a surgical mask for the entirety of this encounter. Roro Valdivia is a 36 y.o. male with a past medical history of CAD, GERD, hypertension, pancreatitis, Tourette's, history of prior appendectomy presenting back from peds because they want a repeat CK because his CK was 599 and apparently their limit is 400. Will give fluids and redraw CK. We willdraw CMP as well. Patient himself has no acute complaints right now, says I have been in here for 3 days and I just want to go home and denies SI, HI, AVH. Past Medical history reviewed. REVIEW OF SYSTEMS Negative except for above HPI Review of Systems PAST MEDICAL HISTORY Past Medical History: Diagnosis Date CAD (coronary artery disease) GERD (gastroesophageal reflux disease) Hypertension Pancreatitis SVT (supraventricular tachycardia) (CMS/HCC) ([facility]) Tourette syndrome SURGICAL HISTORY Past Surgical History: Procedure Laterality Date APPENDECTOMY CURRENT MEDICATIONS Previous Medications HYDROXYZINE PAMOATE (VISTARIL) 25 MG CAPSULE Take 1 capsule (25 mg) by mouth every 6 hours as needed for anxiety for up to 10 days. METOPROLOL SUCCINATE ER PO Take 25 mg by mouth. 2 tablets in the morning and 1 tablet at bedtime. METOPROLOL TARTRATE (LOPRESSOR) 25 MG TABLET Take 50 mg by mouth daily. OMEPRAZOLE (PRILOSEC) [address] CAPSULE Take by mouth. OMEPRAZOLE (PRILOSEC) [address] CAPSULE Take 40 mg by mouth every morning (before breakfast). Do notcrush or chew. SERTRALINE (ZOLOFT) 25 MG TABLET Take 1 tablet (25 mg) by mouth daily. Do not start before 2022. ALLERGIES Patient has no known allergies. FAMILY HISTORY Family History Problem Relation Name Age of Onset No Known Problems Mother No Known Problems Father SOCIAL HISTORY Social History Socioeconomic History Marital status: Single Tobacco Use Smoking status: Every Day Packs/day: 0.25 Types: Cigarettes Smokeless tobacco: Never Substance and Sexual Activity Alcohol use: Yes Alcohol/week: 12.0 standard drinks Types: 12 Standard drinks or equivalent per week Comment: 1 gallon of vodka, 12 pack of beer daily Drug use: Yes Types: Cocaine SCREENINGS PHYSICAL EXAM (up to 7 for level 4, 8 or more for level 5) @EDTRIAGEVSS@ Physical Exam Constitutional: Appearance: Normal appearance. Comments: Reclining calmly in bed watching TV with his arms behind his head. No acute distress. HENT: Head: Normocephalic and atraumatic. Nose: Nose normal. Mouth/Throat: Mouth: Mucous membranes are moist. Eyes: Conjunctiva/sclera: Conjunctivae normal. Cardiovascular: Rate and Rhythm: Normal rate. Pulmonary: Effort: Pulmonary effort is normal. No respiratory distress. Abdominal: General: Abdomen is flat. There is no distension. Musculoskeletal: General: Normal range of motion. Skin: General: Skin is warm and dry. Capillary Refill: Capillary refill takes less than 2 seconds. Neurological: Mental Status: He is alert. Psychiatric: Behavior: Behavior normal. EMERGENCY DEPARTMENT COURSE and DIFFERENTIAL DIAGNOSIS/MDM: Vitals: Vitals: 05/25/22 1624 BP: (!) 151/94 Pulse: 64 Resp: 16 SpO2: 98% Weight: 107 kg (235 lb) Height: 1.829 m (6') Medications sodium chloride 0.9 % bolus 1,000 mL (1,000 mL IntraVENous New Bag 05/25/22 1629) LORazepam (Ativan) tablet 2 mg (2 mg Oral Given 05/25/22 1631) Medical Decision Making Roro Valdivia is a 36 y.o. male with a past medical history of CAD, GERD, hypertension, pancreatitis, Tourette's, history of prior appendectomy presenting back from peds because they want a repeat CK because his CK was 599 and apparently their limit is 400. Will give fluids and redraw CK. We willdraw CMP as well. Patient himself has no acute complaints right now, says I have been in here for 3 days and I just want to go home and denies SI, HI, AVH. Dorsum mild anxiety because he has not had a drink in a few days, but he is not jittery on exam and is calm and cooperative with no signs of florid alcohol withdrawal. Will provide p.o. Ativan 2 mg. Problems Addressed: Anxiety: complicated acute illness or injury Amount and/or Complexity of Data Reviewed Labs: ordered. Decision-making details documented in ED Course. Risk Prescription drug management. . All independent interpretations of EKGs are documented in [facility]. ED Course as of 05/25/22 172 Sun May 25, 2022 1719 CK: 105 [BJ] 1719 Patient is medically cleared for return transfer to [facility]. CK is 105 and creatinine is 0.61. [BJ] ED Course User Index [BJ] Mary Hamlin MD Diagnoses as of 05/25/221720 Anxiety CONSULTS: None PROCEDURES: Unless otherwise noted below, none Procedures FINAL IMPRESSION 1. Anxiety DISPOSITION/PLAN DISPOSITION Transfer To Another Facility 05/25/2022 05:19:32 PM PATIENT REFERRED TO: Neetu Jiménez [address] [place] [address], [address] [facility] [id number] DISCHARGE MEDICATIONS: New Prescriptions No medications on file @[facility]([phone]:LAST:1)@ (Please note: Portions of this note were completed with a voice recognition program. Efforts were made to edit the dictations but occasionally words and phrases are mis-transcribed.) Form [id number] Mary Hamlin MD (electronically signed) Emergency Medicine Provider Mary Hamlin MD 05/25/221720 [place] Phone: [phone] 401-582704-15-2023 Emergency department Note* Ana Rich RN - 05/24/2022 9:30 AM EDT [place] arranged to [facility]. Physician's ETA 2 hours Ana Rich RN 05/24/22929 [facility]fly[facility]gfkcc67[facility]72-5623 Emergency department Note* Ana Rich RN - 05/24/2022 9:30 AM EDT [facility] arranged to [facility]. Physician's ETA 2 hours Ana Rich RN 05/24/22929 * Ana Rich RN - 05/24/2022 8:59 AM EDT Report called to Emily at [facility] Ana Rich RN 05/24/22 0859 * Kenyetta Perkins RN - 05/24/2022 8:00 AM EDT Pt. Resting comfortably in room, asleep; bed lowest position; RR 16 Kenyetta Perkins RN 05/24/22 0802 * Mara Ramos RN - 05/24/2022 2:05 AM EDT Pt ok'd to come off 1:1 sitter by physician. Mara Ramos RN 05/24/22 0206 * Mara Ramos RN - 05/24/2022 2:01 AM EDT Pt A&Ox4. Pt denies SI and HI. Pt states that he has been SI in the past but is not feeling SI.Pt states that he may have been confused when he said he was earlier. Mara Ramos RN 05/24/22 0202 * Juana Trotter RN - 05/23/2022 11:30 PM EDT Pt placed on monitoring devices at this time. Juana Trotter RN 05/23/22 1883 * Mary Hamlin MD - 05/23/2022 8:53 PM EDT [facility] ED EMERGENCY DEPARTMENT ENCOUNTER Pt Name: Roro Valdivia Birthdate 1985 Date of evaluation: 05/23/2022 Provider: Mary Hamlin MD CHIEF COMPLAINT Chief Complaint Patient presents with Drug Overdose Complaint of drug overdose tonight. Patient states he to meth, xanax, possibly cocaine, what he says was supposed to be fentanyl, alcohol and several unmarked pills in an attempt to kill himself tonight. Patient states that he has a history of depression. Patient was given 2mg narcan via EMS prior to arrival. Patient is alert and but confused at this time. HISTORY OF PRESENT ILLNESS (Location/Symptom, Timing/Onset, Context/Setting, Quality, Duration, Modifying Factors, Severity) Note limiting factors. I wore a surgical mask for the entirety of this encounter. Roro Valdivia is a 36 y.o. male with a past medical history of CAD, GERD, hypertension, pancreatitis, Tourette's, presenting after requiring Narcan in the field per EMS. Patient himself states he does not remember what happened, stated to other staff members besides myself that he took a lot of pills and a lot of drugs. When my colleagues asked him specifically why he took these, he stated Hamzah not know man to be honest with you, I was trying to kill myself. He states he has no physical complaints for me to evaluate today and feels well. He denies SI or HIto me but has endorsed suicidal intention to other staff members. Past Medical history reviewed. REVIEW OF SYSTEMS Negative except for above HPI Review of Systems PAST MEDICAL HISTORY Past Medical History: Diagnosis Date CAD (coronary artery disease) GERD (gastroesophageal reflux disease) Hypertension Pancreatitis SVT (supraventricular tachycardia) ([facility]/HCC) ([facility]) Tourette syndrome SURGICAL HISTORY Past Surgical History: Procedure Laterality Date APPENDECTOMY CURRENT MEDICATIONS Previous Medications HYDROXYZINE PAMOATE (VISTARIL) 25 MG CAPSULE Take 1 capsule (25 mg) by mouth every 6 hours as needed for anxiety for up to 10 days. METOPROLOL SUCCINATE ER PO Take 25 mg by mouth. 2 tablets in the morning and 1 tablet at bedtime. METOPROLOL TARTRATE (LOPRESSOR) 25 MG TABLET Take 50 mg by mouth daily. OMEPRAZOLE (PRILOSEC) [address] CAPSULE Take by mouth. OMEPRAZOLE (PRILOSEC) [address] CAPSULE Take 40 mg by mouth every morning (before breakfast). Do notcrush or chew. SERTRALINE (ZOLOFT) 25 MG TABLET Take 1 tablet (25 mg) by mouth daily. Do not start before 2022. ALLERGIES Patient has no known allergies. FAMILY HISTORY Family History Problem Relation Name Age of Onset No Known Problems Mother No Known Problems Father SOCIAL HISTORY Social History Socioeconomic History Marital status: Single Tobacco Use Smoking status: Every Day Packs/day: 0.25 Types: Cigarettes Smokeless tobacco: Never Substance and Sexual Activity Alcohol use: Yes Alcohol/week: 12.0 standard drinks Types: 12 Standard drinks or equivalent per week Comment: 1 gallon of vodka, 12 pack of beer daily Drug use: Yes Types: Cocaine SCREENINGS PHYSICAL EXAM (up to 7 for level 4, 8 or more for level 5) @EDTRIAGEVSS@ Physical Exam Constitutional: Appearance: Normal appearance. HENT: Head: Normocephalic and atraumatic. Nose: Nose normal. Mouth/Throat: Mouth: Mucous membranes are moist. Eyes: Conjunctiva/sclera: Conjunctivae normal. Cardiovascular: Rate and Rhythm: Normal rate. Pulmonary: Effort: Pulmonary effort is normal. No respiratory distress. Abdominal: General: Abdomen is flat. There is no distension. Musculoskeletal: General: Normal range of motion. Skin: General: Skin is warm and dry. Capillary Refill: Capillary refill takes less than 2 seconds. Neurological: General: No focal deficit present. Mental Status: He is alert and oriented to person, place, and time. Comments: Facial movements symmetric, no facial droop, PERRLA, IOMI, moves all extremities equally and symmetrically, speech is fluent and clear. Psychiatric: Behavior: Behavior normal. EMERGENCY DEPARTMENT COURSE and DIFFERENTIAL DIAGNOSIS/MDM: Vitals: Vitals: 05/23/22 2119 05/23/22 2316 05/23/22 2317 BP: 103/61 Pulse: 102 85 82 Resp: 16 14 Temp: 36.6 C (97.9 F) 36.8 C (98.2 F) 36.7 C (98 F) TempSrc: Oral Temporal Temporal SpO2: 95% 94% 94% Weight: 107 kg (235 lb) Height: 1.854 m (6' 1) Medications - No data to display Medical Decision Making Roro Valdivia is a 36 y.o. male with a past medical history of CAD, GERD, hypertension, pancreatitis, Tourette's, presenting after requiring Narcan in the field per EMS. Patient himself states he does not remember what happened, stated to other staff members besides myself that he took a lot of pills and a lot of drugs. When my colleagues asked him specifically why he took these, he stated Hamzah not know man to be honest with you, I was trying to kill myself. He states he has no physical complaints for me to evaluate today and feels well. He denies SI or HIto me but has endorsed suicidal intention to other staff members. Physical exam is unremarkable. Plan - cbc, cmp, ekg, ck, uds, etoh level, asa level, apap level, ekg, pink slip filled out for suicidal ideation with attempt and plan. Will provide anxiolysis, sedation, and IVF as needed. Amount and/or Complexity of Data Reviewed Independent Historian: EMS Labs: ordered. Decision-making details documented in ED Course. Risk Decision regarding hospitalization. . All independent interpretations of EKGs are documented in [facility]. ED Course as of 05/24/22 0003 ThuMay 23, 2022 2359 ETHANOL IN SER/PLAS(!): 0.141 [BJ] Sat May 24, 2022 0001 Auto WBC: 4.4 [BJ] 0001 Hemoglobin: 14.7 [BJ] 0001 Hematocrit: 43.2 [BJ] 0001 SODIUM: 143 [BJ] 0001 Creatinine: 0.72 [BJ] 0001 ACETAMINOPHEN(!): <10.0 [BJ] 0002 Plan at signout is to officially medically clear for admission to psychiatric facility. [BJ] ED Course User Index [BJ] Mary Hamlin MD Diagnoses as of 05/24/22 0003 Suicide attempt (HCC) CONSULTS: None PROCEDURES: Unless otherwise noted below, none Procedures FINAL IMPRESSION 1. Suicide attempt (HCC) DISPOSITION/PLAN DISPOSITION Admit 05/24/2022 12:01:40 AM PATIENT REFERRED TO: No follow-up provider specified. DISCHARGE MEDICATIONS: New Prescriptions No medications on file @[facility]([id number]:LAST:1)@ (Please note: Portions of this note were completed with a voice recognition program. Efforts were made to edit the dictations but occasionally words and phrases are mis-transcribed.) Form [id number] Mary Hamlin MD (electronically signed) Emergency Medicine Provider Mary Hamlin MD 05/24/22 0003 * Duong Milian MD - 05/23/2022 8:53 PM EDT Patient signed out to me he had an overdose suicidal ideation he will be admitted to [facility]. He is worried he is going into alcohol withdrawal upon my evaluation he is calm cooperative possibly slightlyshaky. He says he is most worried about his anxiety we will give him oral phenobarb keep close eye on him bedside feel he is still medically clear for psychiatric admission. Duong Milian MD 05/24/22 0235 * MARIXA Michael - 05/23/2022 8:53 PM EDT Complaint of intentional drug overdose tonight on multiple drugs and alcohol in a suicide attempt. Patient was given 2mg of narcan via ems. * Joe Godoy - 05/23/2022 8:53 PM EDT Bed: 02 Expected date: 05/23/22 Expected time: Means of arrival: Comments: offload oJe Godoy 05/23/222110 * Mara Ramos RN - 05/23/2022 8:53 PM EDT Bed: 13 Expected date: Expected time: Means of arrival: Comments: Room 2 Mara Ramos RN 05/23/222131 documented in this [facility]04-15-2023 Emergency department Note* Ana Rich RN - 05/24/2022 8:59 AM EDT Report called to Emily at [facility] Ana Rich RN 05/24/22 0859 [id number] Emergency department Note* Kenyetta Perkins RN - 05/24/2022 8:00 AM EDT Pt. Resting comfortably in room, asleep; bed lowest position; RR 16 Kenyetta Perkins RN 05/24/22 0802 [address]Bievbr40-49-8148 Emergency department Note* Mara Ramos RN - 05/24/2022 2:05 AM EDT Pt ok'd to come off 1:1 sitter by physician. Mara Ramos RN 05/24/22 0206 [facility]18[facility]12-3113 Emergency department Note* Mara Ramos RN - 05/24/2022 2:01 AM EDT Pt A&Ox4. Pt denies SI and HI. Pt states that he has been SI in the past but is not feeling SI.Pt states that he may have been confused when he said he was earlier. Mara Ramos RN 05/24/22 0202 [facility] HospitalXpktdx81-23-1875 NoteNOTE: This result is for medical treatment only. Analysis performed using non-forensic procedures. [facility] [id number] Emergency department Note* Juana Trotter RN - 05/23/2022 11:30 PM EDT Pt placed on monitoring devices at this time. Juana Trotter RN 05/23/22 4085 [facility] HospitalWgumzo18-45-3686 Miscellaneous Notes* Care Coordination - Roma Madsen RN - 05/23/2022 10:10 PM EDT ACC RN in to see pt. Pt lying in bed with eyes closed; responds to verbal stimuli. Pt admits to using drugs but declines any addiction care services. He states he has been to everything already and is not interested in help at this time. Pt states he lives to get high. Pt declines brochures or prc;not willing to participate in ASAM. documented in this [facility]04-14-2023 Note* Care Coordination - Roma Madsen RN - 05/23/2022 10:10 PM EDT [facility] RN in to see pt. Pt lying in bed with eyes closed; responds to verbal stimuli. Pt admits to using drugs but declines any addiction care services. He states he has been to everything already and is not interested in help at this time. Pt states he lives to get high. Pt declines brochures or prc;not willing to participate in ASAM. [place] [id number] Note* Care Coordination - Roma Madsen RN - 05/23/2022 10:10 PM EDT [facility] RN in to see pt. Pt lying in bed with eyes closed; responds to verbal stimuli. Pt admits to using drugs but declines any addiction care services. He states he has been to everything already and is not interested in help at this time. Pt states he lives to get high. Pt declines brochures or prc;not willing to participate in ASAM. [place] [id number] Emergency department Note* Joe Godoy - 05/23/2022 8:53 PM EDT Bed: 02 Expected date: 05/23/22 Expected time: Means of arrival: Comments: offload Joe Walt 05/23/222110 [facility] HospitalXilxgv61-01-4627 Emergency department Note* Mara Ramos RN - 05/23/2022 8:53 PM EDT Bed: 13 Expected date: Expected time: Means of arrival: Comments: Room 2 Mara Ramos RN 05/23/222131 [facility] HospitalZegehl81-09-3294 Emergency department Triage note* MARIXA Michael - 05/23/2022 8:53 PM EDT Complaint of intentional drug overdose tonight on multiple drugs and alcohol in a suicide attempt. Patient was given 2mg of narcan via ems. [facility] [id number] Physician Emergency department Note* Mary Hamlin MD - 05/23/2022 8:53 PM EDT [facility] ED EMERGENCY DEPARTMENT ENCOUNTER Pt Name: Roro Valdivia Birthdate 1985 Date of evaluation: 05/23/2022 Provider: Mary Hamlin MD CHIEF COMPLAINT Chief Complaint Patient presents with Drug Overdose Complaint of drug overdose tonight. Patient states he to meth, xanax, possibly cocaine, what he says was supposed to be fentanyl, alcohol and several unmarked pills in an attempt to kill himself tonight. Patient states that he has a history of depression. Patient was given 2mg narcan via EMS prior to arrival. Patient is alert and but confused at this time. HISTORY OF PRESENT ILLNESS (Location/Symptom, Timing/Onset, Context/Setting, Quality, Duration, Modifying Factors, Severity) Note limiting factors. I wore a surgical mask for the entirety of this encounter. Roro Valdivia is a 36 y.o. male with a past medical history of CAD, GERD, hypertension, pancreatitis, Tourette's, presenting after requiring Narcan in the field per EMS. Patient himself states he does not remember what happened, stated to other staff members besides myself that he took a lot of pills and a lot of drugs. When my colleagues asked him specifically why he took these, he stated Hamzah not know man to be honest with you, I was trying to kill myself. He states he has no physical complaints for me to evaluate today and feels well. He denies SI or HIto me but has endorsed suicidal intention to other staff members. Past Medical history reviewed. REVIEW OF SYSTEMS Negative except for above HPI Review of Systems PAST MEDICAL HISTORY Past Medical History: Diagnosis Date CAD (coronary artery disease) GERD (gastroesophageal reflux disease) Hypertension Pancreatitis SVT (supraventricular tachycardia) (CMS/HCC) ([facility]) Tourette syndrome SURGICAL HISTORY Past Surgical History: Procedure Laterality Date APPENDECTOMY CURRENT MEDICATIONS Previous Medications HYDROXYZINE PAMOATE (VISTARIL) 25 MG CAPSULE Take 1 capsule (25 mg) by mouth every 6 hours as needed for anxiety for up to 10 days. METOPROLOL SUCCINATE ER PO Take 25 mg by mouth. 2 tablets in the morning and 1 tablet at bedtime. METOPROLOL TARTRATE (LOPRESSOR) 25 MG TABLET Take 50 mg by mouth daily. OMEPRAZOLE (PRILOSEC) [address] CAPSULE Take by mouth. OMEPRAZOLE (PRILOSEC) [address] CAPSULE Take 40 mg by mouth every morning (before breakfast). Do notcrush or chew. SERTRALINE (ZOLOFT) 25 MG TABLET Take 1 tablet (25 mg) by mouth daily. Do not start before 2022. ALLERGIES Patient has no known allergies. FAMILY HISTORY Family History Problem Relation Name Age of Onset No Known Problems Mother No Known Problems Father SOCIAL HISTORY Social History Socioeconomic History Marital status: Single Tobacco Use Smoking status: Every Day Packs/day: 0.25 Types: Cigarettes Smokeless tobacco: Never Substance and Sexual Activity Alcohol use: Yes Alcohol/week: 12.0 standard drinks Types: 12 Standard drinks or equivalent per week Comment: 1 gallon of vodka, 12 pack of beer daily Drug use: Yes Types: Cocaine SCREENINGS PHYSICAL EXAM (up to 7 for level 4, 8 or more for level 5) @EDTRIAGEVSS@ Physical Exam Constitutional: Appearance: Normal appearance. HENT: Head: Normocephalic and atraumatic. Nose: Nose normal. Mouth/Throat: Mouth: Mucous membranes are moist. Eyes: Conjunctiva/sclera: Conjunctivae normal. Cardiovascular: Rate and Rhythm: Normal rate. Pulmonary: Effort: Pulmonary effort is normal. No respiratory distress. Abdominal: General: Abdomen is flat. There is no distension. Musculoskeletal: General: Normal range of motion. Skin: General: Skin is warm and dry. Capillary Refill: Capillary refill takes less than 2 seconds. Neurological: General: No focal deficit present. Mental Status: He is alert and oriented to person, place, and time. Comments: Facial movements symmetric, no facial droop, PERRLA, IOMI, moves all extremities equally and symmetrically, speech is fluent and clear. Psychiatric: Behavior: Behavior normal. EMERGENCY DEPARTMENT COURSE and DIFFERENTIAL DIAGNOSIS/MDM: Vitals: Vitals: 05/23/22 2119 05/23/22 2316 05/23/22 2317 BP: 103/61 Pulse: 102 85 82 Resp: 16 14 Temp: 36.6 C (97.9 F) 36.8 C (98.2 F) 36.7 C (98 F) TempSrc: Oral Temporal Temporal SpO2: 95% 94% 94% Weight: 107 kg (235 lb) Height: 1.854 m (6' 1) Medications - No data to display Medical Decision Making Roro Valdivia is a 36 y.o. male with a past medical history of CAD, GERD, hypertension, pancreatitis, Tourette's, presenting after requiring Narcan in the field per EMS. Patient himself states he does not remember what happened, stated to other staff members besides myself that he took a lot of pills and a lot of drugs. When my colleagues asked him specifically why he took these, he stated Hamzah not know man to be honest with you, I was trying to kill myself. He states he has no physical complaints for me to evaluate today and feels well. He denies SI or HIto me but has endorsed suicidal intention to other staff members. Physical exam is unremarkable. Plan - cbc, cmp, ekg, ck, uds, etoh level, asa level, apap level, ekg, pink slip filled out for suicidal ideation with attempt and plan. Will provide anxiolysis, sedation, and IVF as needed. Amount and/or Complexity of Data Reviewed Independent Historian: EMS Labs: ordered. Decision-making details documented in ED Course. Risk Decision regarding hospitalization. . All independent interpretations of EKGs are documented in [facility]. ED Course as of 05/24/222May 23, 2022 2359 ETHANOL IN SER/PLAS(!): 0.141 [BJ] Sat May 24, 2022 0001 Auto WBC: 4.4 [BJ] 0001 Hemoglobin: 14.7 [BJ] 0001 Hematocrit: 43.2 [BJ] 0001 SODIUM: 143 [BJ] 0001 Creatinine: 0.72 [BJ] 0001 ACETAMINOPHEN(!): <10.0 [BJ] 0002 Plan at signout is to officially medically clear for admission to psychiatric facility. [BJ] ED Course User Index [BJ] Mary Hamlin MD Diagnoses as of 05/24/222 Suicide attempt (HCC) CONSULTS: None PROCEDURES: Unless otherwise noted below, none Procedures FINAL IMPRESSION 1. Suicide attempt (HCC) DISPOSITION/PLAN DISPOSITION Admit 05/24/2022 12:01:40 AM PATIENT REFERRED TO: No follow-up provider specified. DISCHARGE MEDICATIONS: New Prescriptions No medications on file @[facility]([phone]:LAST:1)@ (Please note: Portions of this note were completed with a voice recognition program. Efforts were made to edit the dictations but occasionally words and phrases are mis-transcribed.) Form [id number] Mary Hamlin MD (electronically signed) Emergency Medicine Provider Mary Hamlin MD 05/24/22 0003 [address] Phone: [phone] Physician Emergency department Note* Duong Milian MD - 05/23/2022 8:53 PM EDT Patient signed out to me he had an overdose suicidal ideation he will be admitted to [facility]. He is worried he is going into alcohol withdrawal upon my evaluation he is calm cooperative possibly slightlyshaky. He says he is most worried about his anxiety we will give him oral phenobarb keep close eye on him bedside feel he is still medically clear for psychiatric admission. Duong Milian MD 05/24/22 6120 [place] Phone: [phone] [phone] Emergency department Note* JOSÉ ANTONIO Mercedes CNP - 05/02/2022 6:16 PM EDT EMERGENCY DEPARTMENT ENCOUNTER Pt Name: Roro Valdivia Birthdate 1985 Date of evaluation: 05/02/2022 ED Provider: JOSÉ ANTONIO Mercedes CNP Patient seen independently within my scope of practice with an Emergency Medicine attending available for supervision. CHIEF COMPLAINT Chief Complaint Patient presents with Chest Pain HISTORY OF PRESENT ILLNESS (Location/Symptom, Timing/Onset, Context/Setting, Quality, Duration, Modifying Factors, Severity) Note limiting factors. I wore appropriate PPE for the entirety of this encounter. HPI Roro Valdivia is a 36 y.o. male who presents to the emergency department with left-sided chest pain. Patient complains of pain in the left anterior chest at the border of the left pectoral muscle. Nothing makes the pain worse or better. Denies shortness of breath or fevers or chills. Denies recent travel or surgery, no risk factors for DVT or PE. Denies abdominal pain or nausea vomiting. Denies history of high blood pressure cholesterol diabetes or any risk factors for ACS. 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 He denies any shortness ofbreath. Nursing Notes were reviewed. Limitations to history: None Outside historians: None REVIEW OF SYSTEMS Review of Systems Constitutional: Negative for activity change, appetite change, chills and fever. HENT: Negative for congestion, nosebleeds, postnasal drip, sore throat and trouble swallowing. Eyes: Negative for pain and visual disturbance. Respiratory: Negative for cough, shortness of breath and wheezing. Cardiovascular: Positive for chest pain. Negative for palpitations. Gastrointestinal: Negative for abdominal pain, nausea and vomiting. Genitourinary: Negative for dysuria, flank pain, hematuria, penile discharge, scrotal swelling and testicular pain. Musculoskeletal: Negative for arthralgias, back pain and myalgias. Skin: Negative for rash and wound. Neurological: Negative for dizziness, syncope, weakness and light-headedness. Psychiatric/Behavioral: Negative for agitation and confusion. All other systems reviewed and are negative. Pertinent positives and negatives as per HPI. PAST MEDICAL HISTORY Past Medical History: Diagnosis Date CAD (coronary artery disease) GERD (gastroesophageal reflux disease) Hypertension Pancreatitis SVT (supraventricular tachycardia) (CMS/HCC) (HCC) Tourette syndrome SURGICAL HISTORY Past Surgical History: Procedure Laterality Date APPENDECTOMY CURRENT MEDICATIONS Previous Medications METOPROLOL SUCCINATE ER PO Take 25 mg by mouth. 2 tablets in the morning and 1 tablet at bedtime. METOPROLOL TARTRATE (LOPRESSOR) 25 MG TABLET Take 50 mg by mouth daily. OMEPRAZOLE (PRILOSEC) [address] CAPSULE Take by mouth. OMEPRAZOLE (PRILOSEC) [address] CAPSULE Take 40 mg by mouth every morning (before breakfast). Do notcrush or chew. SERTRALINE (ZOLOFT) 25 MG TABLET Take 1 tablet (25 mg) by mouth daily. Do not start before 2022. ALLERGIES Patient has no known allergies. FAMILY HISTORY Family History Problem Relation Name Age of Onset No Known Problems Mother No Known Problems Father SOCIAL HISTORY Social History Socioeconomic History Marital status: Single Tobacco Use Smoking status: Every Day Packs/day: 0.25 Types: Cigarettes Smokeless tobacco: Never Substance and Sexual Activity Alcohol use: Yes Alcohol/week: 12.0 standard drinks Types: 12 Standard drinks or equivalent per week Comment: 1 gallon of vodka, 12 pack of beer daily Drug use: Yes Types: Cocaine SCREENINGS Efren Coma Scale Best Eye Response: Spontaneous Best Verbal Response: Oriented Best Motor Response: Follows commands Efren Coma Scale Score: 15 HEART Score History: Slightly suspicious ECG: Normal Age: <45 Risk Factors: No known risk factors Troponin: Less than or equal to normal limit HEART Score: 0 NIH Stroke Scale 1A. Level of Consciousness: Alert, Keenly Responsive 1B. Ask Month and Age: Both Questions Right 1C. Blink Eyes & Squeeze Hands: Performs Both Tasks 2. Best Gaze: Normal 3. Visual: No Visual Loss 4. Facial Palsy: Normal Symmetrical Movements 5A. Motor - Left Arm: No Drift 5B. Motor - Right Arm: No Drift 6A. Motor - Left Leg: No Drift 6B. Motor - Right Leg: No Drift 7. Limb Ataxia: Absent 8. Sensory Loss: Xzyh-kn-Wcqkutao Sensory Loss 9. Best Language: No Aphasia 10. Dysarthria: Normal 11. Extinction and Inattention: No Abnormality NIH Stroke Scale: 1 PHYSICAL EXAM ED Triage Vitals [05/02/22 1818] Temp Heart Rate Resp BP 36.6 C (97.8 F) 83 20 (!) 176/140 SpO2 Temp Source Heart Rate Source Patient Position 99 % Temporal Monitor -- BP Location FiO2 (%) -- -- Physical Exam Vitals and nursing note reviewed. Constitutional: General: He is not in acute distress. Appearance: Normal appearance. He is normal weight. He is not ill-appearing or toxic-appearing. HENT: Head: Normocephalic and atraumatic. Right Ear: External ear normal. Left Ear: External ear normal. Mouth/Throat: Mouth: Mucous membranes are moist. Pharynx: Oropharynx is clear. Eyes: Extraocular Movements: Extraocular movements intact. Conjunctiva/sclera: Conjunctivae normal. Pupils: Pupils are equal, round, and reactive to light. Cardiovascular: Comments: Regular rate and rhythm, normal S1-S2, no murmurs noted. Radial pulses 2+ and symmetric. Pulmonary: Effort: Pulmonary effort is normal. No respiratory distress. Breath sounds: Normal breath sounds. No stridor. No wheezing or rhonchi. Chest: Chest wall: No tenderness. Abdominal: Comments: The abdomen is soft, nondistended and nontender. There is no rebound tenderness or guarding. Bowel sounds are normal. Musculoskeletal: General: No swelling, tenderness, deformity or signs of injury. Normal range of motion. Cervical back: Normal range of motion and neck supple. No rigidity or tenderness. Lymphadenopathy: Cervical: No cervical adenopathy. Skin: General: Skin is warm and dry. Capillary Refill: Capillary refill takes less than 2 seconds. Coloration: Skin is not jaundiced or pale. Findings: No bruising or erythema. Neurological: General: No focal deficit present. Mental Status: He is alert and oriented to person, place, and time. Mental status is at baseline. Cranial Nerves: No cranial nerve deficit. Sensory: No sensory deficit. Motor: No weakness. Coordination: Coordination normal. Psychiatric: Mood and Affect: Mood normal. DIAGNOSTIC RESULTS RADIOLOGY (Per Emergency Physician): Interpretation per the Radiologist below, if available at the time of this note: XR chest 2 views Final Result 1. No acute finding. Report Dictated on Electronically Signed By: Steve Medellin Electronically Signed Date/Time: 05/02/2022 6:58 PM EDT LABS: Labs Reviewed BASIC METABOLIC PANEL - Abnormal Result Value SODIUM 140 POTASSIUM 4.0 CHLORIDE 107 CARBON DIOXIDE 24 UREA NITROGEN 5 (*) CREATININE 0.75 GLUCOSE 107 (*) CALCIUM 9.4 ANION GAP 9 eGFR >90.0 TROPONIN I - Normal TROPONIN I <0.012 Narrative: Patients with high levels of Biotin oral intake (ie >5 mg/day) may have falsely decreased Troponin levels. CBC (HEMOGRAM) - Normal Auto WBC 4.6 RBC 4.73 Hemoglobin 14.7 Hematocrit 44.0 MCV 92.9 MCH 31.0 MCHC 33.4 RDW 13.2 Platelets 194 MPV 8.2 THYROID STIMULATING HORMONE All other labs were within normal range or not returned as of this dictation. EMERGENCY DEPARTMENT COURSE and DIFFERENTIAL DIAGNOSIS/MDM: Vitals: Vitals: 05/02/22 1818 05/02/22 1830 05/02/22 1834 BP: (!) 176/140 (!) 156/88 Pulse: 83 Resp: 20 Temp: 36.6 C (97.8 F) TempSrc: Temporal SpO2: 99% Weight: 107 kg (235 lb) Height: 1.854 m (6' 1) Medications LORazepam (Ativan) tablet 1 mg (has no administration in time range) aspirin chewable tablet 324 mg (324 mg Oral Given 05/02/221905) ketorolac (Toradol) injection 15 mg (15 mg IntraVENous Given 05/02/221906) hydrOXYzine HCl (Atarax) tablet 25 mg (25 mg Oral Given 05/02/221938) MDM elements: The patient presented with chief complaint of with left-sided chest pain. Patient complains of pain in the left anterior chest at the border of the left pectoral muscle. Nothing makes the pain worse or better. Denies shortness of breath or fevers or chills. Denies recent travel or surgery, no risk factors for DVT or PE. Denies abdominal pain or nausea vomiting. Denies history of high blood pressure cholesterol diabetes or any risk factors for ACS. Patient does state he works with a lot of chemicals at work and does not wear a respirator. He denies any shortness of breath.. The differential diagnosis associated with this patient's presentation includes ACS, costochondritis, pleurisy, pericarditis. Our workup consisted of ordering/reviewing: CBC, BMP, troponin, EKG. Diagnostic tests considered but not performed: Considered a viral swab but the patient has no coughor URI type symptoms, I also considered possibility of a pulmonary embolus but the patient is low probability for PE using Wells criteria and he is PERC negative To aid in management, I performed an independent interpretation of EKG(s) EKG shows sinus rhythm with a rate of [address] elevation or depression with normal intervals Xray(s) chest x-ray per my interpretation shows a normal mediastinum normal cardiac silhouette no infiltrates or effusions. I discussed their care with none. Consideration for escalation of care with: none. The patient will be discharged, patient started having worsening chest pain he was hyperventilatingcomplaining of tingling in his extremities he has equal and symmetric pulses normal mediastinum on the chest x-ray I do not believe he has a aortic dissection, I believe he is suffering from anxiety attacks I will give him a short course of Vistaril have him follow-up with his PCP and he will be discharged home in stable condition. Patient is in agreement with this plan. Patient has a history of Tourette's he is hyperventilating in the room, has an extensive history ofanxiety he is initially he states has been on multiple different medications for this but none of them help its unclear how long he took him a trial of them or whether he even gave them a fair shake,he states now for his anxiety attacks he goes outside smokes cigarettes drinks alcohol but nothing really helps has been on Vistaril, Lexapro, Wellbutrin and nothing is helped his anxiety attacks. Heis not suicidal or homicidal. I will give him 1 dose of Ativan here he told me he had a psychiatrist initially but now states he does not have a psychiatrist and wants a referral so I will give him areferral to psychiatry he will be discharged home in stable condition. PROCEDURES: Unless otherwise noted below, none Procedures CRITICAL CARE TIME None FINAL IMPRESSION 1. Chest pain, unspecified type 2. Anxiety attack DISPOSITION Discharge 05/02/2022 07:51:02 PM PATIENT REFERRED TO: Neetu Jiménez [address] [place] [address]., [address] [facility] [id number] Schedule an appointment as soon as possible for a visit in 3 days DISCHARGE MEDICATIONS: New Prescriptions HYDROXYZINE PAMOATE (VISTARIL) 25 MG CAPSULE Take 1 capsule (25 mg) by mouth every 6 hours as needed for anxiety for up to 10 days. (Comment: Please note this report has been produced using speech recognition software and may contain errors related to that system including errors in grammar, punctuation, and spelling, as well as words and phrases that may be inappropriate. If there are any questions or concerns please feel freeto contact the dictating provider for clarification.) JOSÉ ANTONIO Mercedes CNP (electronically signed) Emergency Medicine Provider JOSÉ ANTONIO Mercedes CNP 05/02/221953 JOSÉ ANTONIO Mercedes CNP 05/02/222006 * Roma Lutz RN - 05/02/2022 6:16 PM EDT Pt came with c/o numbness and tingling legs, arms and feet when standing. Chest pain and dizziness also present. All stated about a week ago worsened today. Thought is was heartburn and took omeprazole but it didn't work. documented in this encounterSDayton [facility] [id number] Emergency department Triage note* Roma Lutz RN - 05/02/2022 6:16 PM EDT Pt came with c/o numbness and tingling legs, arms and feet when standing. Chest pain and dizziness also present. All stated about a week ago worsened today. Thought is was heartburn and took omeprazole but it didn't work. [id number] Phys[facility] Emergency department Note* JOSÉ ANTONIO Mercedes CNP - 05/02/2022 6:16 PM EDT EMERGENCY DEPARTMENT ENCOUNTER Pt Name: Roro Valdivia Birthdate 1985 Date of evaluation: 05/02/2022 ED Provider: JOSÉ ANTONIO Mercedes CNP Patient seen independently within my scope of practice with an Emergency Medicine attending available for supervision. CHIEF COMPLAINT Chief Complaint Patient presents with Chest Pain HISTORY OF PRESENT ILLNESS (Location/Symptom, Timing/Onset, Context/Setting, Quality, Duration, Modifying Factors, Severity) Note limiting factors. I wore appropriate PPE for the entirety of this encounter. HPI Roro Valdivia is a 36 y.o. male who presents to the emergency department with left-sided chest pain. Patient complains of pain in the left anterior chest at the border of the left pectoral muscle. Nothing makes the pain worse or better. Denies shortness of breath or fevers or chills. Denies recent travel or surgery, no risk factors for DVT or PE. Denies abdominal pain or nausea vomiting. Denies history of high blood pressure cholesterol diabetes or any risk factors for ACS. 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 He denies any shortness ofbreath. Nursing Notes were reviewed. Limitations to history: None Outside historians: None REVIEW OF SYSTEMS Review of Systems Constitutional: Negative for activity change, appetite change, chills and fever. HENT: Negative for congestion, nosebleeds, postnasal drip, sore throat and trouble swallowing. Eyes: Negative for pain and visual disturbance. Respiratory: Negative for cough, shortness of breath and wheezing. Cardiovascular: Positive for chest pain. Negative for palpitations. Gastrointestinal: Negative for abdominal pain, nausea and vomiting. Genitourinary: Negative for dysuria, flank pain, hematuria, penile discharge, scrotal swelling and testicular pain. Musculoskeletal: Negative for arthralgias, back pain and myalgias. Skin: Negative for rash and wound. Neurological: Negative for dizziness, syncope, weakness and light-headedness. Psychiatric/Behavioral: Negative for agitation and confusion. All other systems reviewed and are negative. Pertinent positives and negatives as per HPI. PAST MEDICAL HISTORY Past Medical History: Diagnosis Date CAD (coronary artery disease) GERD (gastroesophageal reflux disease) Hypertension Pancreatitis SVT (supraventricular tachycardia) (CMS/HCC) (HCC) Tourette syndrome SURGICAL HISTORY Past Surgical History: Procedure Laterality Date APPENDECTOMY CURRENT MEDICATIONS Previous Medications METOPROLOL SUCCINATE ER PO Take 25 mg by mouth. 2 tablets in the morning and 1 tablet at bedtime. METOPROLOL TARTRATE (LOPRESSOR) 25 MG TABLET Take 50 mg by mouth daily. OMEPRAZOLE (PRILOSEC) [address] CAPSULE Take by mouth. OMEPRAZOLE (PRILOSEC) [address] CAPSULE Take 40 mg by mouth every morning (before breakfast). Do notcrush or chew. SERTRALINE (ZOLOFT) 25 MG TABLET Take 1 tablet (25 mg) by mouth daily. Do not start before 2022. ALLERGIES Patient has no known allergies. FAMILY HISTORY Family History Problem Relation Name Age of Onset No Known Problems Mother No Known Problems Father SOCIAL HISTORY Social History Socioeconomic History Marital status: Single Tobacco Use Smoking status: Every Day Packs/day: 0.25 Types: Cigarettes Smokeless tobacco: Never Substance and Sexual Activity Alcohol use: Yes Alcohol/week: 12.0 standard drinks Types: 12 Standard drinks or equivalent per week Comment: 1 gallon of vodka, 12 pack of beer daily Drug use: Yes Types: Cocaine SCREENINGS Efren Coma Scale Best Eye Response: Spontaneous Best Verbal Response: Oriented Best Motor Response: Follows commands Efren Coma Scale Score: 15 HEART Score History: Slightly suspicious ECG: Normal Age: <45 Risk Factors: No known risk factors Troponin: Less than or equal to normal limit HEART Score: 0 NIH Stroke Scale 1A. Level of Consciousness: Alert, Keenly Responsive 1B. Ask Month and Age: Both Questions Right 1C. Blink Eyes & Squeeze Hands: Performs Both Tasks 2. Best Gaze: Normal 3. Visual: No Visual Loss 4. Facial Palsy: Normal Symmetrical Movements 5A. Motor - Left Arm: No Drift 5B. Motor - Right Arm: No Drift 6A. Motor - Left Leg: No Drift 6B. Motor - Right Leg: No Drift 7. Limb Ataxia: Absent 8. Sensory Loss: Sjln-dg-Ufgqrhxe Sensory Loss 9. Best Language: No Aphasia 10. Dysarthria: Normal 11. Extinction and Inattention: No Abnormality NIH Stroke Scale: 1 PHYSICAL EXAM ED Triage Vitals [05/02/22 1818] Temp Heart Rate Resp BP 36.6 C (97.8 F) 83 20 (!) 176/140 SpO2 Temp Source Heart Rate Source Patient Position 99 % Temporal Monitor -- BP Location FiO2 (%) -- -- Physical Exam Vitals and nursing note reviewed. Constitutional: General: He is not in acute distress. Appearance: Normal appearance. He is normal weight. He is not ill-appearing or toxic-appearing. HENT: Head: Normocephalic and atraumatic. Right Ear: External ear normal. Left Ear: External ear normal. Mouth/Throat: Mouth: Mucous membranes are moist. Pharynx: Oropharynx is clear. Eyes: Extraocular Movements: Extraocular movements intact. Conjunctiva/sclera: Conjunctivae normal. Pupils: Pupils are equal, round, and reactive to light. Cardiovascular: Comments: Regular rate and rhythm, normal S1-S2, no murmurs noted. Radial pulses 2+ and symmetric. Pulmonary: Effort: Pulmonary effort is normal. No respiratory distress. Breath sounds: Normal breath sounds. No stridor. No wheezing or rhonchi. Chest: Chest wall: No tenderness. Abdominal: Comments: The abdomen is soft, nondistended and nontender. There is no rebound tenderness or guarding. Bowel sounds are normal. Musculoskeletal: General: No swelling, tenderness, deformity or signs of injury. Normal range of motion. Cervical back: Normal range of motion and neck supple. No rigidity or tenderness. Lymphadenopathy: Cervical: No cervical adenopathy. Skin: General: Skin is warm and dry. Capillary Refill: Capillary refill takes less than 2 seconds. Coloration: Skin is not jaundiced or pale. Findings: No bruising or erythema. Neurological: General: No focal deficit present. Mental Status: He is alert and oriented to person, place, and time. Mental status is at baseline. Cranial Nerves: No cranial nerve deficit. Sensory: No sensory deficit. Motor: No weakness. Coordination: Coordination normal. Psychiatric: Mood and Affect: Mood normal. DIAGNOSTIC RESULTS RADIOLOGY (Per Emergency Physician): Interpretation per the Radiologist below, if available at the time of this note: XR chest 2 views Final Result 1. No acute finding. Report Dictated on Electronically Signed By: Steve Medellin Electronically Signed Date/Time: 05/02/2022 6:58 PM EDT LABS: Labs Reviewed BASIC METABOLIC PANEL - Abnormal Result Value SODIUM 140 POTASSIUM 4.0 CHLORIDE 107 CARBON DIOXIDE 24 UREA NITROGEN 5 (*) CREATININE 0.75 GLUCOSE 107 (*) CALCIUM 9.4 ANION GAP 9 eGFR >90.0 TROPONIN I - Normal TROPONIN I <0.012 Narrative: Patients with high levels of Biotin oral intake (ie >5 mg/day) may have falsely decreased Troponin levels. CBC (HEMOGRAM) - Normal Auto WBC 4.6 RBC 4.73 Hemoglobin 14.7 Hematocrit 44.0 MCV 92.9 MCH 31.0 MCHC 33.4 RDW 13.2 Platelets 194 MPV 8.2 THYROID STIMULATING HORMONE All other labs were within normal range or not returned as of this dictation. EMERGENCY DEPARTMENT COURSE and DIFFERENTIAL DIAGNOSIS/MDM: Vitals: Vitals: 05/02/22 1818 05/02/22 1830 05/02/22 1834 BP: (!) 176/140 (!) 156/88 Pulse: 83 Resp: 20 Temp: 36.6 C (97.8 F) TempSrc: Temporal SpO2: 99% Weight: 107 kg (235 lb) Height: 1.854 m (6' 1) Medications LORazepam (Ativan) tablet 1 mg (has no administration in time range) aspirin chewable tablet 324 mg (324 mg Oral Given 05/02/221905) ketorolac (Toradol) injection 15 mg (15 mg IntraVENous Given 05/02/221906) hydrOXYzine HCl (Atarax) tablet 25 mg (25 mg Oral Given 05/02/221938) MDM elements: The patient presented with chief complaint of with left-sided chest pain. Patient complains of pain in the left anterior chest at the border of the left pectoral muscle. Nothing makes the pain worse or better. Denies shortness of breath or fevers or chills. Denies recent travel or surgery, no risk factors for DVT or PE. Denies abdominal pain or nausea vomiting. Denies history of high blood pressure cholesterol diabetes or any risk factors for ACS. Patient does state he works with a lot of chemicals at work and does not wear a respirator. He denies any shortness of breath.. The differential diagnosis associated with this patient's presentation includes ACS, costochondritis, pleurisy, pericarditis. Our workup consisted of ordering/reviewing: CBC, BMP, troponin, EKG. Diagnostic tests considered but not performed: Considered a viral swab but the patient has no coughor URI type symptoms, I also considered possibility of a pulmonary embolus but the patient is low probability for PE using Wells criteria and he is PERC negative To aid in management, I performed an independent interpretation of EKG(s) EKG shows sinus rhythm with a rate of [address] elevation or depression with normal intervals Xray(s) chest x-ray per my interpretation shows a normal mediastinum normal cardiac silhouette no infiltrates or effusions. I discussed their care with none. Consideration for escalation of care with: none. The patient will be discharged, patient started having worsening chest pain he was hyperventilatingcomplaining of tingling in his extremities he has equal and symmetric pulses normal mediastinum on the chest x-ray I do not believe he has a aortic dissection, I believe he is suffering from anxiety attacks I will give him a short course of Vistaril have him follow-up with his PCP and he will be discharged home in stable condition. Patient is in agreement with this plan. Patient has a history of Tourette's he is hyperventilating in the room, has an extensive history ofanxiety he is initially he states has been on multiple different medications for this but none of them help its unclear how long he took him a trial of them or whether he even gave them a fair shake,he states now for his anxiety attacks he goes outside smokes cigarettes drinks alcohol but nothing really helps has been on Vistaril, Lexapro, Wellbutrin and nothing is helped his anxiety attacks. Heis not suicidal or homicidal. I will give him 1 dose of Ativan here he told me he had a psychiatrist initially but now states he does not have a psychiatrist and wants a referral so I will give him areferral to psychiatry he will be discharged home in stable condition. PROCEDURES: Unless otherwise noted below, none Procedures CRITICAL CARE TIME None FINAL IMPRESSION 1. Chest pain, unspecified type 2. Anxiety attack DISPOSITION Discharge 05/02/2022 07:51:02 PM PATIENT REFERRED TO: Neetu Jiménez [facility] [address] [facility] [id number] Schedule an appointment as soon as possible for a visit in 3 days DISCHARGE MEDICATIONS: New Prescriptions HYDROXYZINE PAMOATE (VISTARIL) 25 MG CAPSULE Take 1 capsule (25 mg) by mouth every 6 hours as needed for anxiety for up to 10 days. (Comment: Please note this report has been produced using speech recognition software and may contain errors related to that system including errors in grammar, punctuation, and spelling, as well as words and phrases that may be inappropriate. If there are any questions or concerns please feel freeto contact the dictating provider for clarification.) JOSÉ ANTONIO Mercedes CNP (electronically signed) Emergency Medicine Provider JOSÉ ANTONIO Mercedes CNP 05/02/221953 JOSÉ ANTONIO Mercedes CNP 05/02/222006 [id number] History of Present illness Narrative* Luisa Kilgore RD - 03/19/2022 12:02 PM EST Consult noted for poor appetite. Since pt. Is being discharged today, nutrition assessment will be on hold. * Feli May RN - 03/19/2022 11:58 AM EST Has return to work letter. Denies si/hi. Has info on meetings,red book, and tool box. Discussed with roro. Discussed risk of using any etoh, meds not prescribed or as, street drugs. Discussed risk of increased od or if uses following detox, stated understood. Discussed discharge instructions, stated understood and signed. Had no questions. Called ride and has belongings. Will escort to discharge area. * Shilpi Perez RN - 03/19/2022 5:29 AM EST Patient social in the day room with peers with appropriate behavior. Patient takes medication with ease and is able to make needs known. * Vinay Pacheco MD - 03/18/2022 8:47 AM EST Images from the original note were not included. Addiction Medicine Progress Note Patient: Roro Valdivia Problem List: Principal Problem: Alcohol withdrawal with inpatient treatment, uncomplicated (HCC) Active Problems: Severe alcohol use disorder (HCC) Cocaine abuse (HCC) Elevated liver enzymes Panic disorder Subjective Chief Complaint Patient presents with Alcohol Problem Pt requesting detox for etoh. Interim History Patient was seen and examined for alcohol use disorder and withdrawal symptoms from alcohol. No acute events overnight. Withdrawal symptoms are improving. Discussed patient regarding his alcohol use,sobriety and after discharge plans. He states his stepmother wants him to go to residential treatment program but he does not want to do it. He states he needs to go to his place first after discharge before going anywhere. He is working with social work to finalize his after discharge plans. Review of Systems Review of Systems Constitutional: Positive for chills, diaphoresis and fatigue. Negative for activity change and appetite change. Respiratory: Negative. Cardiovascular: Negative. Gastrointestinal: Negative. Musculoskeletal: Negative. Neurological: Positive for weakness. Negative for tremors. Psychiatric/Behavioral: Negative for agitation, behavioral problems, confusion, decreased concentration, dysphoric mood, hallucinations, self-injury, sleep disturbance and suicidal ideas. The patientis nervous/anxious. The patient is not hyperactive. Objective Vitals Vitals: 03/17/22 1226 03/17/22 1729 03/17/22 2321 03/18/22 0603 BP: (!) 139/94 139/85 (!) 148/92 127/76 Pulse: 86 75 68 61 Resp: 18 18 18 18 Temp: 36.7 C (98 F) 36.5 C (97.7 F) 37.3 C (99.1 F) 36.7 C (98 F) TempSrc: Temporal Temporal Temporal Temporal SpO2: 98% 94% 97% Physical Exam Vitals and nursing note reviewed. Constitutional: General: He is not in acute distress. Appearance: Normal appearance. He is not ill-appearing, toxic-appearing or diaphoretic. HENT: Head: Normocephalic and atraumatic. Eyes: Extraocular Movements: Extraocular movements intact. Conjunctiva/sclera: Conjunctivae normal. Pulmonary: Effort: Pulmonary effort is normal. Musculoskeletal: Cervical back: Normal range of motion and neck supple. Skin: General: Skin is dry. Neurological: Mental Status: He is alert and oriented to person, place, and time. Psychiatric: Mood and Affect: Mood normal. Behavior: Behavior normal. Thought Content: Thought content normal. Judgment: Judgment normal. Home Medications Current Outpatient Medications Medication Instructions omeprazole (PRILOSEC) 40 mg, Oral, Daily before breakfast, Do not crush or chew. Inpatient Medications Current Facility-Administered Medications: acetaminophen (Tylenol) tablet 650 mg, 650 mg, Oral, q6h PRN, Carlitos Orta MD, 650 mg at 03/17/22 2215 aluminum & magnesium hydroxide-simethicone (Mylanta) 200-200-20 MG/5ML oral suspension 10 mL, 10 mL, Oral, TID PRN, Carlitos Orta MD, 10 mL at 03/17/22 2214 dicyclomine (Bentyl) capsule 10 mg, 10 mg, Oral, q6h PRN, Vinay Pacheco MD folic acid (Folvite) tablet 1 mg, 1 mg, Oral, Daily, Carlitos Orta MD, 1 mg at 03/17/22 0809 hydrOXYzine pamoate (Vistaril) capsule 50 mg, 50 mg, Oral, q6h PRN, Carlitos Orta MD, 50 mg at 03/17/22 1608 loperamide (Imodium) capsule 2 mg, 2 mg, Oral, 4x daily PRN, Carlitos Orta MD multiple vitamin tablet, 1 tablet, Oral, Daily, Carlitos Orta MD, 1 tablet at 03/17/22 0811 nicotine (Nicoderm, Step 1) 21 MG/24HR patch 1 patch, 1 patch, TransDERmal, Daily, Carlitos Orta MD, 1 patch at 03/17/22 1011 nicotine polacrilex (Nicorette) gum 2 mg, 2 mg, Mouth/Throat, q2h PRN, Vinay Pacheco MD ondansetron ODT (Zofran-ODT) disintegrating tablet 4 mg, 4 mg, Oral, q6h PRN, Carlitos Orta MD, 4mg at 03/16/22 0812 pantoprazole (ProtoNix) EC tablet 20 mg, 20 mg, Oral, qAM AC, Carlitos Orta MD, 20 mg at 604 PHENobarbital (Luminal) tablet 64.8 mg, 64.8 mg, Oral, Q4H, Vinay Pacheco MD, 64.8 mg at 03/18/22 0402 senna-docusate sodium (Senokot-S) 8.6-50 MG tablet 2 tablet, 2 tablet, Oral, BID PRN, Vinay Pacheco MD sertraline (Zoloft) tablet 25 mg, 25 mg, Oral, Daily, Carlitos Orta MD, 25 mg at 03/17/22 0809 Thiamine Mononitrate (Vitamin B1) tablet 100 mg, 100 mg, Oral, TID, Vinay Pacheco MD, 100 mg at 03/17/222012 traZODone (Desyrel) tablet 100 mg, 100 mg, Oral, PRN, Carlitos Orta MD, 100 mg at 03/17/222018 Recent Imaging ECG 12 lead Result Date: 03/15/2022 Sinus rhythm Probable left ventricular hypertrophy Borderline T abnormalities, inferior leads No significant changes compared to previous Electronically Signed On 03-15-2022 22:26:15 EST by Josseline Weber Labs Last 24 Hours Recent Results (from the past 24 hour(s)) Comprehensive metabolic panel Collection Time: 03/18/22 6:12 AM Result Value Ref Range SODIUM 136 135 - 145 mmol/L POTASSIUM 4.0 3.5 - 5.1 mmol/L CHLORIDE 102 98 - 107 mmol/L CARBON DIOXIDE 30 22 - 30 mmol/L ANION GAP 4 3 - 13 mmol/L UREA NITROGEN 4 (L) 9 - 20 mg/dL CREATININE 0.73 0.66 - 1.25 mg/dL GLUCOSE 102 (H) 70 - 100 mg/dL CALCIUM 9.1 8.4 - 10.4 mg/dL AST (SGOT) 195 (H) 15 - 46 U/L ALT 135 (H) 0 - 49 U/L ALKALINE PHOSPHATASE 74 38 - 126 U/L ALBUMIN 4.0 3.5 - 5.0 g/dL BILIRUBIN, TOTAL 0.9 0.2 - 1.3 mg/dL TOTAL PROTEIN 6.9 6.3 - 8.2 g/dL eGFR >90.0 >60.0 mL/min/1.73m*2 Trends CBC: Recent Labs 03/15/222031 WBC 6.0 HGB 14.0 PLT 189 MCV 93.7 RDW 13.8 BMP: Recent Labs 03/15/22203103/18/22 0612 NA 140 136 K 4.1 4.0 CL 105 102 CO2 24 30 BUN 5* 4* CREATININE 0.74 0.73 CALCIUM 8.9 9.1 Liver Profile: Recent Labs 03/15/22203103/18/22 0612 AST 234* 195* ALT 167* 135* BILITOT 0.5 0.9 ALKPHOS 117 74 PROT 8.3* 6.9 LIPASE 324* -- Glucose: Recent Labs 03/15/22203103/18/22 0612 GLUCOSE 112* 102* Lactic Acid: No lab exists for component: LACTA Cardiac Injury Profile: No results for input(s): CKTOTAL, CKMB, TROPONINI in the last 72 hours. Other Recent Labs: No results found for: CHOL, TRIG, HDL, TSH, VITD25, PSA, GLUF Assessment & Plan Severe alcohol use disorder Cocaine abuse Nicotine dependence Counseled patient on biopsychosocial consequences of substance use. Encouraged professional chemical dependency treatment. Encouraged 12 step meeting attendance. SW to finalize addiction treatment plan with patient: Long discussion with patient regarding his substance use disorder, sobriety and after discharge plans. He states his stepmother wants him to go to residential treatment program but he himself does not want to do that. He states he needs to go back to his apartment. After discharge before going anywhere else. He states he might be interested in sober living. We will follow social work recommendodette coffman. Discussed with him regarding naltrexone IM injection to help with cravings for alcohol. Patient states he might be interested in that. Alcohol withdrawal Nicotine withdrawal Last use of alcohol was on 03/15/22. Phenobarbital taper to manage alcohol withdrawal symptoms. 32 mg q 4 hours for today. Thiamine/folic acid. CIWA scores per unit protocol. PRN medications for withdrawal symptom management added. Nicotine patch. Encouraged to participate in all unit activities. Anxiety/Panic disorder Likely history of depression Tourette's Syndrome Started on Zoloft 25 mg daily. Continue hydroxyzine as needed. Denies any side effects from the medication. He will need rx at discharge. History of pancreatitis History of SVT/HTN History of GERD Continue PPI. He claims he was on BB before; he is cocaine + so will avoid restarting for now, but will monitor for palpitations and monitor BP. He has been off metoprolol for at least 1 year. Elevated liver enzymes--- likely related to alcohol use -Check liver enzymes tomorrow.--Reviewed CMP. Disposition: Discharge anticipated in 2-3 days. This is pending: Resolution of withdrawal symptoms. Medical stabilization. Labs/tests/tasks to review: liver function, Vivitrol IM injection on day of discharge. Nurse Ob recommendations: n/a. I spent total time 35 minutes reviewing the patient's medical record, reviewing test results, educating and then counseling the patient on any substance use disorder or chemical dependency related issues. This included a face to face evaluation and physical examination, coordinating care on a substance use disorder treatment plan as well as documenting clinical information on the day of visit. Please note this report has been produced using speech recognition software and may contain errors related to that system including errors in grammar, punctuation, and spelling, as well as words and phrases that may be inappropriate. If there are questions or concerns please feel free to contact the dictating provider for clarification. * Shilpi Perez RN - 03/17/2022 9:12 AM EST Patient up, ordered breakfast, takes medication with ease. Patient asked about starting medication for HTN/Tourette Syndrome. Patient encouraged to speak to physician. * Vinay Pacheco MD - 03/17/2022 7:36 AM EST Images from the original note were not included. Addiction Medicine Progress Note Patient: Roro Valdivia Problem List: Principal Problem: Alcohol withdrawal with inpatient treatment, uncomplicated (HCC) Active Problems: Severe alcohol use disorder (HCC) Cocaine abuse (HCC) Elevated liver enzymes Panic disorder Subjective Chief Complaint Patient presents with Alcohol Problem Pt requesting detox for etoh. Interim History Patient was seen and examined for alcohol use disorder/cocaine abuse and withdrawal symptoms from alcohol. No acute events overnight. Withdrawal symptoms are improving. Discussed with patient regarding his alcohol use, sobriety and after discharge plans. Review of Systems Review of Systems Constitutional: Positive for chills, diaphoresis and fatigue. Negative for activity change and appetite change. HENT: Negative. Respiratory: Negative. Cardiovascular: Negative. Gastrointestinal: Negative. Genitourinary: Negative. Musculoskeletal: Negative. Skin: Negative. Neurological: Positive for weakness. Negative for tremors. Psychiatric/Behavioral: Positive for sleep disturbance. Negative for agitation, behavioral problems, confusion, decreased concentration, dysphoric mood, hallucinations, self-injury and suicidal ideas. The patient is nervous/anxious. The patient is not hyperactive. Objective Vitals Vitals: 03/16/22 1834 03/16/22 2353 03/16/22 2358 03/17/22 0619 BP: (!) 138/94 (!) 166/102 (!) 162/102 138/89 BP Location: Patient Position: Lying Pulse: 84 94 61 Resp: 16 18 16 Temp: 36.8 C (98.2 F) 37.1 C (98.7 F) 36.8 C (98.2 F) TempSrc: Temporal Temporal Temporal SpO2: 97% 97% 96% Physical Exam Vitals and nursing note reviewed. Constitutional: General: He is not in acute distress. Appearance: Normal appearance. He is not ill-appearing, toxic-appearing or diaphoretic. HENT: Head: Normocephalic and atraumatic. Eyes: Extraocular Movements: Extraocular movements intact. Conjunctiva/sclera: Conjunctivae normal. Pulmonary: Effort: Pulmonary effort is normal. Musculoskeletal: General: Normal range of motion. Cervical back: Normal range of motion and neck supple. Skin: General: Skin is dry. Neurological: Mental Status: He is alert and oriented to person, place, and time. Psychiatric: Mood and Affect: Mood normal. Behavior: Behavior normal. Thought Content: Thought content normal. Judgment: Judgment normal. Home Medications Current Outpatient Medications Medication Instructions omeprazole (PRILOSEC) 40 mg, Oral, Daily before breakfast, Do not crush or chew. Inpatient Medications Current Facility-Administered Medications: acetaminophen (Tylenol) tablet 650 mg, 650 mg, Oral, q6h PRN, Carlitos Orta MD aluminum & magnesium hydroxide-simethicone (Mylanta) 200-200-20 MG/5ML oral suspension 10 mL, 10 mL, Oral, TID PRN, Carlitos Orta MD folic acid (Folvite) tablet 1 mg, 1 mg, Oral, Daily, Carlitos Orta MD, 1 mg at 03/16/22 0808 hydrOXYzine pamoate (Vistaril) capsule 50 mg, 50 mg, Oral, q6h PRN, Carlitos Orta MD, 50 mg at 03/16/22 1500 influenza vac subunit quadrivalent (Flucelvax) injection 0.5 mL, 0.5 mL, IntraMUSCular, Once, MD Zack loperamide (Imodium) capsule 2 mg, 2 mg, Oral, 4x daily PRN, Carlitos Orta MD magnesium hydroxide (Milk of Magnesia) 400 MG/5ML suspension 30 mL, 30 mL, Oral, BID PRN, Carlitos Orta MD multiple vitamin tablet, 1 tablet, Oral, Daily, Carlitos Orta MD, 1 tablet at 03/16/22 0809 nicotine (Nicoderm, Step 1) 21 MG/24HR patch 1 patch, 1 patch, TransDERmal, Daily, Carlitos Orat MD, 1 patch at 03/16/22 115 ondansetron ODT (Zofran-ODT) disintegrating tablet 4 mg, 4 mg, Oral, q6h PRN, Carlitos Orta MD, 4mg at 03/16/22 0812 pantoprazole (ProtoNix) EC tablet 20 mg, 20 mg, Oral, qAM AC, Carlitos Orta MD, 20 mg at PHENobarbital (Luminal) tablet 97.2 mg, 97.2 mg, Oral, Q4H, Carlitos Orta MD, 97.2 mg at sertraline (Zoloft) tablet 25 mg, 25 mg, Oral, Daily, Carlitos Orta MD, 25 mg at 03/16/22 1158 Thiamine Mononitrate (Vitamin B1) tablet 100 mg, 100 mg, Oral, Daily, Carlitos Orta MD, 100 mg at03/16/22 0808 traZODone (Desyrel) tablet 100 mg, 100 mg, Oral, PRN, Carlitos Orta MD, 100 mg at 03/15/222341 Recent Imaging ECG 12 lead Result Date: 03/15/2022 Sinus rhythm Probable left ventricular hypertrophy Borderline T abnormalities, inferior leads No significant changes compared to previous Electronically Signed On 03-15-2022 22:26:15 EST by Josseline Weber Labs Last 24 Hours No results found for this or any previous visit (from the past 24 hour(s)). Trends CBC: Recent Labs 03/15/222031 WBC 6.0 HGB 14.0 PLT 189 MCV 93.7 RDW 13.8 BMP: Recent Labs 03/15/222031 NA 140 K 4.1 CL 105 CO2 24 BUN 5* CREATININE 0.74 CALCIUM 8.9 Liver Profile: Recent Labs 03/15/222031 AST 234* ALT 167* BILITOT 0.5 ALKPHOS 117 PROT 8.3* LIPASE 324* Glucose: Recent Labs 03/15/222031 GLUCOSE 112* Lactic Acid: No lab exists for component: LACTA Cardiac Injury Profile: No results for input(s): CKTOTAL, CKMB, TROPONINI in the last 72 hours. Other Recent Labs: No results found for: CHOL, TRIG, HDL, TSH, VITD25, PSA, GLUF Assessment & Plan Severe alcohol use disorder Cocaine abuse Nicotine dependence Counseled patient on biopsychosocial consequences of substance use. Encouraged professional chemical dependency treatment. Encouraged 12 step meeting attendance. SW to finalize addiction treatment plan with patient: Long discussion with patient regarding his substance use disorder, sobriety and after discharge plans. Discussed with inpatient versus outpatient options. He states his main priority is his apartment. He has no plans to follow-up with any of her recommendations. We will follow social work recommendations. Discussed with him regarding naltrexone IM injection to help with cravings for alcohol. Patient states he might be interested in that. Alcohol withdrawal Nicotine withdrawal Last use of alcohol was on 03/15/22. Phenobarbital taper to manage alcohol withdrawal symptoms. 65 mg q 4 hours for today. Thiamine/folic acid. CIWA scores per unit protocol. PRN medications for withdrawal symptom management added. Nicotine patch. Encouraged to participate in all unit activities. Anxiety/Panic disorder Likely history of depression Tourette's Syndrome Started on Zoloft 25 mg daily. Continue hydroxyzine as needed. Denies any side effects from the medication. He will need rx at discharge. History of pancreatitis History of SVT/HTN History of GERD Will restart PPI now; he will need rx at discharge He claims he was on BB before; he is cocaine + so will avoid restarting for now, but will monitor for palpitations and monitor BP. He has been off metoprolol for at least 1 year. Elevated liver enzymes--- likely related to alcohol use -Check liver enzymes tomorrow. Disposition: Discharge anticipated in 3-4 days. This is pending: Resolution of withdrawal symptoms. Medical stabilization. Labs/tests/tasks to review: liver function, Vivitrol IM injection on day of discharge. Nurse Ob recommendations: n/a. I spent total time 35 minutes reviewing the patient's medical record, reviewing test results, educating and then counseling the patient on any substance use disorder or chemical dependency related issues. This included a face to face evaluation and physical examination, coordinating care on a substance use disorder treatment plan as well as documenting clinical information on the day of visit. Please note this report has been produced using speech recognition software and may contain errors related to that system including errors in grammar, punctuation, and spelling, as well as words and phrases that may be inappropriate. If there are questions or concerns please feel free to contact the dictating provider for clarification. * Christy Chauhan RN - 03/17/2022 4:30 AM EST Pt cooperative with nursing care and med complaint. Withdrawn to room during the shift. Denying SI/HI/AVH and withdrawal s/sx stating that the ativan that he received earlier helped. No PRNs given. Pt encouraged to make needs known to staff and to drink fluids. 0600 Pt BP improved was 138/89 this morning. * Christy Chauhan RN - 03/17/2022 12:01 AM EST Pt manual BP was 162/102, orders does not meet criteria to contact physician. * Christy Chauhan RN - 03/16/2022 4:28 AM EST Reports using [facility] on [address], . Closed at the moment will inform day nurse so they can call and verify meds. Reports taking metoprolol unsure of mg. * Christy Chauhan RN - 03/16/2022 4:26 AM EST Given prn trazodone for sleep, effective. Reported no withdrawal signs still at the moment. * Christy Chauhan RN - 03/16/2022 4:19 AM EST Pt arrived to the unit at 2317. Pt A&Ox4. Gait steady up ad cameron. Consent signed. Assessment noted and charted. Pt drinking 1 gallon of vodka and 12 pack of beer daily. Has been drinking ofr 18 yrs and longest sobriety was about 1 day. Pt originally went to [facility] but they sent him here bc of his medical s/sx. Nohx of seizures and reports only falling while drunk, fall risk precautions in place. Denied using cocaine in ED but reported to this nurse that he tried it once at a [employer] party on night and did alot and that's why its still showing in urine. Pt reports hx of hallucinations while detoxing but denies right now. Denies SI/HI as well. Reports having trauma but did not want to disclose, also saidhe think he was in the psych [place] Pt has Tourettes and has tick movement of the head but denies cu rsing. Pt cooperative. Orientated to unit and room. Call light within reach, bed in lowest position, encouraged to make needs known to staff. 20 in right AC. Pt CIWA 0, reported not having any s/sx right now bc of Ativan given in the ED. [facility]* Care Coordination - VANITA Toribio - 03/19/2022 10:22 AM EST [facility] saw patient to discuss aftercare plans and treatment post discharge. Patient was reminded abouta follow up appointment with [facility] on 03/26/22 at 11:20am. Patient denied current SI/HI/AVH. Patient reported that their step- mother would be picking them up from the hospital and taking them back home.Patient asked for a letter of admission. A letter was provided and a copy placed in patient's chart. Patient denied needing anything further from [facility] at the time. [facility] informed patient'snurse about conversation. [id number]* Care Coordination - VANITA Toribio - 03/19/2022 10:22 AM EST [facility] saw patient to discuss aftercare plans and treatment post discharge. Patient was reminded abouta follow up appointment with [facility] on 03/26/22 at 11:20am. Patient denied current SI/HI/AVH. Patient reported that their step- mother would be picking them up from the hospital and taking them back home.Patient asked for a letter of admission. A letter was provided and a copy placed in patient's chart. Patient denied needing anything further from [facility] at the time. [facility] informed patient'snurse about conversation. [id number] Miscellaneous Notes* Care Coordination - VANITA Toribio - 03/19/2022 10:22 AM EST [facility] saw patient to discuss aftercare plans and treatment post discharge. Patient was reminded abouta follow up appointment with [facility] on 03/26/22 at 11:20am. Patient denied current SI/HI/AVH. Patient reported that their step- mother would be picking them up from the hospital and taking them back home.Patient asked for a letter of admission. A letter was provided and a copy placed in patient's chart. Patient denied needing anything further from [facility] at the time. [facility] informed patient'snurse about conversation. * Group Note - Divine Lombardo - 03/18/2022 4:59 PM EST Inpatient [facility] Department: [facility] Group Name: Recreation Therapy Group Topic: Other Group Date: 03/18/2022 Start Time: 1600 End Time: 1640 Facilitators: Divine Lombardo Number of Participants: 7 Treatment Modality: Recreation Therapy Purpose: Build Leisure Awareness, Decrease Barriers Summary: Leisure Pyramid - Patients are challenged to fill in a block pyramid with various healthy leisure activities. Patients are given word challenges along the way, which simulate the difficulties that can arise when trying to think of heathy options for engagement and coping. Discussion focuses on the challenges and benefits of leisure pursuits. Name: Roro Valdivia Date of : 1985 MR: [id number] Interventions utilized were Building rapport and engagement and Empathic listening Patient's Response to Intervention: Patient engaged fully in intervention. Patient was able to identify multiple healthy leisure activities including wanting to start working out in a gym. Patient had good eye contact during interaction. Patient was given strategies to decrease barriers to making po sitive choices in leisure pursuits. Continue to encourage group participation as appropriate. Appearance: Good eye contact Affect: Restricted Level of Participation: active Quality of Participation: engaged Interactions with others: supportive Behavior: Pleasant Alertness: Alert Speech: Appropriate Patients Problems: Patient Active Problem List Diagnosis GERD (gastroesophageal reflux disease) Hypertension SVT (supraventricular tachycardia) (CMS/HCC) (HCC) Tourette syndrome Alcohol induced acute pancreatitis without necrosis or infection Acute pancreatitis Acute pancreatitis without infection or necrosis Alcohol withdrawal with inpatient treatment, uncomplicated (HCC) Severe alcohol use disorder (HCC) Cocaine abuse (HCC) Elevated liver enzymes Panic disorder * Care Coordination - VANITA Toribio - 03/18/2022 1:58 PM EST [facility] called [facility] for intake appointment information. Staff explained that they were having issues with their fax machine and asked that information be re-sent. [facility] will re-fax information. Staff will call [facility] back with the follow up appointment information. * Care Coordination - VANITA Toribio - 03/17/2022 1:10 PM EST Patient is have social secretary in the hallway. Patient asked for resources related to sober living. Patient asked for assistance in identifying sober living facilities. belt worker explained the difficulties with sober living as they are not often licensed and accredited. belt worker offered to provide patient with a list of resources and patient was agreeable to make his own phone calls. Patient asked for assistance as well for emergency rent and utilities. belt worker provided patient with number to [facility] for emergency assistance as well as [facility]. Patient was also provided with information for [facility] the [facility]. Patient encouraged to seek out social secretary should he identify any additional needs or services. at1:15 PM * Care Coordination - VANITA Toribio - 03/17/2022 11:08 AM EST [facility] talked with patient about aftercare. Due to patient's need for community resources and case management, [facility] offered to assist with referral to [facility]. Patient agreeable and signed ARI. [facility] faxed referral for patient. Information will be added to discharge paperwork as appointments are scheduled. * Care Plan - Christy Chauhan RN - 03/16/2022 9:19 PM EST Problem: Self Harm/Suicidality Goal: Will have no self-injury during hospital stay Outcome: Progressing Problem: Psychosis Goal: Will report no hallucinations or delusions Outcome: Progressing Problem: Anxiety Goal: Will report anxiety at manageable levels Outcome: Progressing * Care Coordination - VANITA Toribio - 03/16/2022 4:02 PM EST Behavioral Health Psycho-Social Assessment (Social Work) Date: 03/16/2022 Patient Name: Roro Valdivia : 1985 Identifying Information: Patient is a 36-year-old male admitted to E4 for detox from alcohol. Patient has a past reported history of fentanyl abuse as well as methamphetamine use. Patient is unknown to addiction medicine team as he is not been previously on the unit. Presenting Problem: Patient presented to the ED on 03/15/2022 requesting detox for alcohol. Patient went to the ADM board but because of his withdrawal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 of overdoses. [x] Legal consequences of substance use. Substance Use Disorder Criteria 2-3 = mild; 4-5 = moderate; 6 or >6 = severe substance use disorder [x] Taking substance in larger amounts and/or for longer than intended. [x] Wanting to cut down or quit but not being able to. [x] Spending a lot of time obtaining the substance. [x] Craving or a strong desire to use substance. [x] Repeatedly doesn't carry out major obligations due to substance use. [x] Using despite recurring social or interpersonal problems. [x] Reducing social, occupational, or recreational activities. [x] Recurrent use in physically hazardous situations. [x] Consistent use despite recurrent physical or psychological difficulties. [x] Tolerance (increased amounts to achieve intoxication or diminished effect). [x] Withdrawal syndrome or the substance is used to avoid withdrawal. Psychiatric History Current Psychiatrist: has gone to [facility] in the recent past; unclear if he is still active there Current Medications: denies Diagnoses: depression and anxiety Previous Medication Trials: sertraline, effexor, vistaril, ativan, paroxetine? Psychiatric Hospitalizations: denies Previous Suicide Attempts: denies Adverse Childhood Events: yes Trauma History: yes History of Head Injuries: unclear Past Medical History Past Medical History: Diagnosis Date CAD (coronary artery disease) GERD (gastroesophageal reflux disease) Hypertension Pancreatitis SVT (supraventricular tachycardia) (CMS/HCC) (HCC) Tourette syndrome Past Surgical History Past Surgical History: Procedure Laterality Date APPENDECTOMY Family History Family History Problem Relation Name Age of Onset No Known Problems Mother No Known Problems Father Social Determinants of Health Tobacco Use: High Risk Smoking Tobacco Use: Every Day Smokeless Tobacco Use: Never Passive Exposure: Not on file Alcohol Use: Heavy Drinker Frequency of Alcohol Consumption: 4 or more times a week Average Number of Drinks: 10 or more Frequency of Binge Drinking: Daily or almost daily Financial Resource Strain: Not on file Food Insecurity: Not on file Transportation Needs: Not on file Physical Activity: Not on file Stress: Not on file Social Connections: Not on file Intimate Partner Violence: Not on file Depression: Not on file Housing Stability: Not on file Review of Systems Review of Systems Constitutional: Positive for activity change, appetite change, diaphoresis and fatigue. HENT: Negative. Respiratory: Negative. Cardiovascular: Positive for palpitations. Gastrointestinal: Positive for nausea. Musculoskeletal: Negative. Skin: Negative. Neurological: Positive for tremors, weakness and headaches. Psychiatric/Behavioral: Positive for sleep disturbance. The patient is nervous/anxious. All other systems reviewed and are negative. Exam Vitals Vitals: 03/15/22 2128 03/15/22 2248 03/15/22 2320 03/16/22 0411 BP: 131/88 117/62 135/83 103/68 BP Location: Patient Position: Pulse: 88 65 64 58 Resp: 18 16 Temp: 36.5 C (97.7 F) 36.9 C (98.5 F) TempSrc: Temporal Temporal SpO2: 97% 94% 98% Physical Exam Vitals and nursing note reviewed. Constitutional: General: He is not in acute distress. Appearance: Normal appearance. He is ill-appearing (disheveled). HENT: Head: Normocephalic and atraumatic. Mouth/Throat: Mouth: Mucous membranes are dry. Eyes: General: No scleral icterus. Extraocular Movements: Extraocular movements intact. Conjunctiva/sclera: Conjunctivae normal. Cardiovascular: Rate and Rhythm: Normal rate and regular rhythm. Pulses: Normal pulses. Pulmonary: Effort: Pulmonary effort is normal. Breath sounds: Normal breath sounds. Abdominal: General: Abdomen is flat. Palpations: Abdomen is soft. Musculoskeletal: General: Normal range of motion. Skin: General: Skin is warm and dry. Neurological: General: No focal deficit present. Mental Status: He is oriented to person, place, and time. Cranial Nerves: No cranial nerve deficit. Motor: Tremor present. Psychiatric: Attention and Perception: Attention and perception normal. Mood and Affect: Mood is anxious and depressed. Affect is flat. Speech: Speech normal. Behavior: Behavior normal. Behavior is cooperative. Thought Content: Thought content normal. Cognition and Memory: Cognition and memory normal. Judgment: Judgment is inappropriate. Imaging ECG 12 lead Result Date: 03/15/2022 Sinus rhythm Probable left ventricular hypertrophy Borderline T abnormalities, inferior leads No significant changes compared to previous Electronically Signed On 03-15-2022 22:26:15 EST by [employer] Recent Results (from the past 48 hour(s)) CBC auto differential Collection Time: 03/15/22 8:32 PM Result Value Ref Range Auto WBC 6.0 3.6 - 10.7 10*3/uL RBC 4.45 4.40 - 5.90 10*6/uL Hemoglobin 14.0 13.0 - 18.0 g/dL Hematocrit 41.7 40.0 - 52.0 % MCV 93.7 80.0 - 98.0 fL MCH 31.4 26.0 - 34.0 pg MCHC 33.6 32.0 - 36.0 % RDW 13.8 11.5 - 14.5 % Platelets 189 140 - 440 10*3/uL MPV 8.4 7.4 - 12.4 fL nRBC 0.1 0.0 - 2.0 /100 WBCs Neutrophils Relative 32.6 (L) 40.0 - 80.0 % Lymphocytes Relative 59.5 (H) 20.0 - 40.0 % Monocytes Relative 6.7 2.0 - 10.0 % Eosinophils Relative 0.6 (L) 1.0 - 6.0 % Basophils Relative 0.6 0.0 - 2.0 % Neutrophils Absolute 1.9 1.8 - 7.0 10*3/uL Lymphocytes Absolute 3.6 1.0 - 4.3 10*3/uL Monocytes Absolute 0.4 0.0 - 0.8 10*3/uL Eosinophils Absolute 0.0 0.0 - 0.5 10*3/uL Basophils Absolute 0.0 0.0 - 0.2 10*3/uL Comprehensive metabolic panel Collection Time: 03/15/22 8:32 PM Result Value Ref Range SODIUM 140 135 - 145 mmol/L POTASSIUM 4.1 3.5 - 5.1 mmol/L CHLORIDE 105 98 - 107 mmol/L CARBON DIOXIDE 24 22 - 30 mmol/L ANION GAP 11 3 - 13 mmol/L UREA NITROGEN 5 (L) 9 - 20 mg/dL CREATININE 0.74 0.66 - 1.25 mg/dL GLUCOSE 112 (H) 70 - 100 mg/dL CALCIUM 8.9 8.4 - 10.4 mg/dL AST (SGOT) 234 (H) 15 - 46 U/L ALT 167 (H) 0 - 49 U/L ALKALINE PHOSPHATASE 117 38 - 126 U/L ALBUMIN 4.9 3.5 - 5.0 g/dL BILIRUBIN, TOTAL 0.5 0.2 - 1.3 mg/dL TOTAL PROTEIN 8.3 (H) 6.3 - 8.2 g/dL eGFR >90.0 >60.0 mL/min/1.73m*2 Ethanol Collection Time: 03/15/22 8:32 PM Result Value Ref Range ETHANOL IN SER/PLAS 0.289 (H) 0.000 - 0.010 g/dL Lipase Collection Time: 03/15/22 8:32 PM Result Value Ref Range LIPASE 324 (H) 23 - 300 U/L SARS-CoV-2 Antigen Collection Time: 03/15/22 8:33 PM Specimen: Nasal; Swab Result Value Ref Range SARS-CoV-2 Antigen Negative Negative Drug screen panel, emergency Collection Time: 03/15/22 9:35 PM Result Value Ref Range AMPHETAMINE SCREEN Negative BARBITURATES SCREEN Negative BENZODIAZEPINE SCREEN Negative COCAINE METAB. SCREEN Positive METHADONE SCREEN Negative OPIATES SCREEN Negative OXYCODONE SCREEN Negative PHENCYCLIDINE SCREEN Negative ECG 12 lead Collection Time: 03/15/22 10:18 PM Result Value Ref Range Heart Rate 60 bpm QRSD Interval 93 ms QT Interval 427 ms QTC Interval 428 ms P [place] 41 degrees QRS [place] 5 degrees T Wave [place] 2 degrees ME Interval 176 ms Medications Home Medications Current Outpatient Medications Medication Instructions omeprazole (PRILOSEC) 40 mg, Oral, Daily before breakfast, Do not crush or chew. Inpatient Medications Current Facility-Administered Medications: acetaminophen (Tylenol) tablet 650 mg, 650 mg, Oral, q6h PRN, Carlitos Orta MD aluminum & magnesium hydroxide-simethicone (Mylanta) 200-200-20 MG/5ML oral suspension 10 mL, 10 mL, Oral, TID PRN, Carlitos Orta MD folic acid (Folvite) tablet 1 mg, 1 mg, Oral, Daily, Carlitos Orta MD, 1 mg at 03/16/22 0808 hydrOXYzine pamoate (Vistaril) capsule 50 mg, 50 mg, Oral, q6h PRN, Carlitos Orta MD, 50 mg at 03/16/22 0812 influenza vac subunit quadrivalent (Flucelvax) injection 0.5 mL, 0.5 mL, IntraMUSCular, Once, MD Zack loperamide (Imodium) capsule 2 mg, 2 mg, Oral, 4x daily PRN, Carlitos Orta MD magnesium hydroxide (Milk of Magnesia) 400 MG/5ML suspension 30 mL, 30 mL, Oral, BID PRN, Carlitos Orta MD multiple vitamin tablet, 1 tablet, Oral, Daily, Carlitos Orta MD, 1 tablet at 03/16/22 0809 ondansetron ODT (Zofran-ODT) disintegrating tablet 4 mg, 4 mg, Oral, q6h PRN, Carlitos Orta MD, 4mg at 03/16/22 0812 pantoprazole (ProtoNix) EC tablet 20 mg, 20 mg, Oral, qAM AC, Carlitos Orta MD PHENobarbital (Luminal) tablet 97.2 mg, 97.2 mg, Oral, Q4H, Carlitos Orta MD, 97.2 mg at 808 sertraline (Zoloft) tablet 25 mg, 25 mg, Oral, Daily, Carlitos Orta MD Thiamine Mononitrate (Vitamin B1) tablet 100 mg, 100 mg, Oral, Daily, Carlitos Orta MD, 100 mg at03/16/22 0808 traZODone (Desyrel) tablet 100 mg, 100 mg, Oral, PRN, Carlitos Orta MD, 100 mg at 03/15/22 2342 Assessment & Plan Severe alcohol use disorder Polysubstance abuse (alcohol, nicotine, meth, cocaine, history of opioid abuse) Counseled patient on biopsychosocial consequences of substance use. Encouraged professional chemical dependency treatment. Encouraged 12 step meeting attendance. SW to finalize addiction treatment plan with patient: I feel he should go directly to inpatient rehab at this point. He will finalize decision with SW tomorrow. At minimum, entering into our [facility] IOP and MAT program is a good idea. He is welcome to see anshul Handy if interested. I did talk to him about [facility]. Alcohol withdrawal ?stimulant withdrawal Nicotine withdrawal Last use of alcohol was on 03/15/22. Phenobarbital taper to manage alcohol withdrawal symptoms. 97 mg q 4 hours for today. Thiamine/folic acid. CIWA scores per unit protocol. PRN medications for withdrawal symptom management added. Nicotine patch. Encouraged to participate in all unit activities. Anxiety/Panic disorder Likely history of depression Tourette's Syndrome Informed consent regarding SSRI obtained - he has tried sertraline in the past, I will start him rob low dose of 25 mg daily now He will need rx at discharge Perhaps we can get him an appointment at [facility] where he has established before If symptoms worsen consider psych consult History of pancreatitis History of SVT/HTN History of GERD Will restart PPI now; he will need rx at discharge He claims he was on BB before; he is cocaine + so will avoid restarting for now, but will monitor for palpitations and monitor BP Elevated liver enzymes Exam benign; consider repeat LFT's prior to discharge Would benefit from outpatient liver US Disposition: Discharge anticipated in 4-5 days. This is pending: Resolution of withdrawal symptoms. Medical stabilization. Labs/tests/tasks to review: liver function, mood, panic attacks, desire to go to rehab, Vivitrol IMinjection on day of discharge. Nurse Ob recommendations: n/a. I spent total time 75 minutes reviewing the patient's medical record, reviewing test results, educating and then counseling the patient on any substance use disorder or chemical dependency related issues. This included a face to face evaluation and physical examination, coordinating care on a substance use disorder treatment plan as well as documenting clinical information on the day of visit. [id number] History and physical note* Carlitos Orta MD - 03/16/2022 10:28 AM EST Images from the original note were not included. Addiction Medicine Inpatient 4E Detox Unit H&P Patient: Roro Valdivia Admit Date: 03/15/2022 Primary Care Physician: Neetu Jiménez History of Present Illness Chief Complaint Patient presents with Alcohol Problem Pt requesting detox for etoh. Roro Valdivia is a 36 y.o. year old white male with a PMH of anxiety disorder, panic attacks, CAD?, GERD, SVT, pancreatitis and daily alcohol use dating back to his teenage years that was admitted for alcohol detox. Roro Valdivia states that he has also experimented with every drug at some point in addition todaily alcohol use. Currently, he admits to using intranasal cocaine and meth sporadically. 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 He says he can't go more than a day without getting severe anxiety and withdrawal symptoms. He has no family support and poor transportation. He is having numerous withdrawal symptoms now. Hesays that the fact he is waking up in the middle of the night to drink just so he won't be sick wasa wake up call, in addition to losing his job and why he chose to get help now. On admission, a urine drug screen was positive for cocaine, and a serum alcohol level was 289 on 03/15/22 @ 2112. Substance Use History Brief Substance Use Narrative He started drinking as a teenager. He dropped out of high school due to alcohol use (although he later did get his GED while in [employer]). He has never gone more than a day or two as an adult without drinking. He admits to experimenting with opioid pain pills and fentanyl although he overdosed and decided to stop opioid use about a year ago. He admits to ongoing and sporadic cocaine and meth use in addition to daily alcohol use. He was forced to go to [facility] and inpatient treatment at [facility] as a youth, but otherwise has no formal chemical dependency treatment history. He has no MAT history. Current Substance Use Alcohol: a gallon Black Velvet Whiskey daily and an additional 24 pack of 12 oz beers daily. Amphetamines: sporadic IN meth use. Benzos: denies but has abused in the past; has also had benzo rx's in the past. Cocaine: sporadic IN cocaine use; has also used crack cocaine. Hallucinogens: experimented in the past, not currently. Marijuana: in the past. Nicotine: daily. Opioids: experimented with pain pills and IV/IN fentanyl in the past; denies any use in the last year. Treatment History Inpatient Rehab: [facility] as a teenager. Chem Dep IOP: denies. Detoxifications: denies. 12 Step Meetings: denies. Medication Assisted Treatment: denies. Consequences [x] IVDA. [x] Blackouts related to substance use. [] History of withdrawal seizures. [x] History of delirium tremens. [x] History of overdoses. [x] Legal consequences of substance use. Substance Use Disorder Criteria 2-3 = mild; 4-5 = moderate; 6 or >6 = severe substance use disorder [x] Taking substance in larger amounts and/or for longer than intended. [x] Wanting to cut down or quit but not being able to. [x] Spending a lot of time obtaining the substance. [x] Craving or a strong desire to use substance. [x] Repeatedly doesn't carry out major obligations due to substance use. [x] Using despite recurring social or interpersonal problems. [x] Reducing social, occupational, or recreational activities. [x] Recurrent use in physically hazardous situations. [x] Consistent use despite recurrent physical or psychological difficulties. [x] Tolerance (increased amounts to achieve intoxication or diminished effect). [x] Withdrawal syndrome or the substance is used to avoid withdrawal. Psychiatric History Current Psychiatrist: has gone to [facility] in the recent past; unclear if he is still active there Current Medications: denies Diagnoses: depression and anxiety Previous Medication Trials: sertraline, effexor, vistaril, ativan, paroxetine? Psychiatric Hospitalizations: denies Previous Suicide Attempts: denies Adverse Childhood Events: yes Trauma History: yes History of Head Injuries: unclear Past Medical History Past Medical History: Diagnosis Date CAD (coronary artery disease) GERD (gastroesophageal reflux disease) Hypertension Pancreatitis SVT (supraventricular tachycardia) (CMS/HCC) (HCC) Tourette syndrome Past Surgical History Past Surgical History: Procedure Laterality Date APPENDECTOMY Family History Family History Problem Relation Name Age of Onset No Known Problems Mother No Known Problems Father Social Determinants of Health Tobacco Use: High Risk Smoking Tobacco Use: Every Day Smokeless Tobacco Use: Never Passive Exposure: Not on file Alcohol Use: Heavy Drinker Frequency of Alcohol Consumption: 4 or more times a week Average Number of Drinks: 10 or more Frequency of Binge Drinking: Daily or almost daily Financial Resource Strain: Not on file Food Insecurity: Not on file Transportation Needs: Not on file Physical Activity: Not on file Stress: Not on file Social Connections: Not on file Intimate Partner Violence: Not on file Depression: Not on file Housing Stability: Not on file Review of Systems Review of Systems Constitutional: Positive for activity change, appetite change, diaphoresis and fatigue. HENT: Negative. Respiratory: Negative. Cardiovascular: Positive for palpitations. Gastrointestinal: Positive for nausea. Musculoskeletal: Negative. Skin: Negative. Neurological: Positive for tremors, weakness and headaches. Psychiatric/Behavioral: Positive for sleep disturbance. The patient is nervous/anxious. All other systems reviewed and are negative. Exam Vitals Vitals: 03/15/22 2128 03/15/22 2248 03/15/22 2320 03/16/22 0411 BP: 131/88 117/62 135/83 103/68 BP Location: Patient Position: Pulse: 88 65 64 58 Resp: 18 16 Temp: 36.5 C (97.7 F) 36.9 C (98.5 F) TempSrc: Temporal Temporal SpO2: 97% 94% 98% Physical Exam Vitals and nursing note reviewed. Constitutional: General: He is not in acute distress. Appearance: Normal appearance. He is ill-appearing (disheveled). HENT: Head: Normocephalic and atraumatic. Mouth/Throat: Mouth: Mucous membranes are dry. Eyes: General: No scleral icterus. Extraocular Movements: Extraocular movements intact. Conjunctiva/sclera: Conjunctivae normal. Cardiovascular: Rate and Rhythm: Normal rate and regular rhythm. Pulses: Normal pulses. Pulmonary: Effort: Pulmonary effort is normal. Breath sounds: Normal breath sounds. Abdominal: General: Abdomen is flat. Palpations: Abdomen is soft. Musculoskeletal: General: Normal range of motion. Skin: General: Skin is warm and dry. Neurological: General: No focal deficit present. Mental Status: He is oriented to person, place, and time. Cranial Nerves: No cranial nerve deficit. Motor: Tremor present. Psychiatric: Attention and Perception: Attention and perception normal. Mood and Affect: Mood is anxious and depressed. Affect is flat. Speech: Speech normal. Behavior: Behavior normal. Behavior is cooperative. Thought Content: Thought content normal. Cognition and Memory: Cognition and memory normal. Judgment: Judgment is inappropriate. Imaging ECG 12 lead Result Date: 03/15/2022 Sinus rhythm Probable left ventricular hypertrophy Borderline T abnormalities, inferior leads No significant changes compared to previous Electronically Signed On 03-15-2022 22:26:15 EST by [employer] Recent Results (from the past 48 hour(s)) CBC auto differential Collection Time: 03/15/22 8:32 PM Result Value Ref Range Auto WBC 6.0 3.6 - 10.7 10*3/uL RBC 4.45 4.40 - 5.90 10*6/uL Hemoglobin 14.0 13.0 - 18.0 g/dL Hematocrit 41.7 40.0 - 52.0 % MCV 93.7 80.0 - 98.0 fL MCH 31.4 26.0 - 34.0 pg MCHC 33.6 32.0 - 36.0 % RDW 13.8 11.5 - 14.5 % Platelets 189 140 - 440 10*3/uL MPV 8.4 7.4 - 12.4 fL nRBC 0.1 0.0 - 2.0 /100 WBCs Neutrophils Relative 32.6 (L) 40.0 - 80.0 % Lymphocytes Relative 59.5 (H) 20.0 - 40.0 % Monocytes Relative 6.7 2.0 - 10.0 % Eosinophils Relative 0.6 (L) 1.0 - 6.0 % Basophils Relative 0.6 0.0 - 2.0 % Neutrophils Absolute 1.9 1.8 - 7.0 10*3/uL Lymphocytes Absolute 3.6 1.0 - 4.3 10*3/uL Monocytes Absolute 0.4 0.0 - 0.8 10*3/uL Eosinophils Absolute 0.0 0.0 - 0.5 10*3/uL Basophils Absolute 0.0 0.0 - 0.2 10*3/uL Comprehensive metabolic panel Collection Time: 03/15/22 8:32 PM Result Value Ref Range SODIUM 140 135 - 145 mmol/L POTASSIUM 4.1 3.5 - 5.1 mmol/L CHLORIDE 105 98 - 107 mmol/L CARBON DIOXIDE 24 22 - 30 mmol/L ANION GAP 11 3 - 13 mmol/L UREA NITROGEN 5 (L) 9 - 20 mg/dL CREATININE 0.74 0.66 - 1.25 mg/dL GLUCOSE 112 (H) 70 - 100 mg/dL CALCIUM 8.9 8.4 - 10.4 mg/dL AST (SGOT) 234 (H) 15 - 46 U/L ALT 167 (H) 0 - 49 U/L ALKALINE PHOSPHATASE 117 38 - 126 U/L ALBUMIN 4.9 3.5 - 5.0 g/dL BILIRUBIN, TOTAL 0.5 0.2 - 1.3 mg/dL TOTAL PROTEIN 8.3 (H) 6.3 - 8.2 g/dL eGFR >90.0 >60.0 mL/min/1.73m*2 Ethanol Collection Time: 03/15/22 8:32 PM Result Value Ref Range ETHANOL IN SER/PLAS 0.289 (H) 0.000 - 0.010 g/dL Lipase Collection Time: 03/15/22 8:32 PM Result Value Ref Range LIPASE 324 (H) 23 - 300 U/L SARS-CoV-2 Antigen Collection Time: 03/15/22 8:33 PM Specimen: Nasal; Swab Result Value Ref Range SARS-CoV-2 Antigen Negative Negative Drug screen panel, emergency Collection Time: 03/15/22 9:35 PM Result Value Ref Range AMPHETAMINE SCREEN Negative BARBITURATES SCREEN Negative BENZODIAZEPINE SCREEN Negative COCAINE METAB. SCREEN Positive METHADONE SCREEN Negative OPIATES SCREEN Negative OXYCODONE SCREEN Negative PHENCYCLIDINE SCREEN Negative ECG 12 lead Collection Time: 03/15/22 10:18 PM Result Value Ref Range Heart Rate 60 bpm QRSD Interval 93 ms QT Interval 427 ms QTC Interval 428 ms P [place] 41 degrees QRS [place] 5 degrees T Wave [place] 2 degrees ME Interval 176 ms Medications Home Medications Current Outpatient Medications Medication Instructions omeprazole (PRILOSEC) 40 mg, Oral, Daily before breakfast, Do not crush or chew. Inpatient Medications Current Facility-Administered Medications: acetaminophen (Tylenol) tablet 650 mg, 650 mg, Oral, q6h PRN, Carlitos Orta MD aluminum & magnesium hydroxide-simethicone (Mylanta) 200-200-20 MG/5ML oral suspension 10 mL, 10 mL, Oral, TID PRN, Carlitos Orta MD folic acid (Folvite) tablet 1 mg, 1 mg, Oral, Daily, Carlitos Orta MD, 1 mg at 03/16/22 08 hydrOXYzine pamoate (Vistaril) capsule 50 mg, 50 mg, Oral, q6h PRN, Carlitos Orta MD, 50 mg at 03/16/22 08 influenza vac subunit quadrivalent (Flucelvax) injection 0.5 mL, 0.5 mL, IntraMUSCular, Once, MD Zack loperamide (Imodium) capsule 2 mg, 2 mg, Oral, 4x daily PRN, Carlitos Orta MD magnesium hydroxide (Milk of Magnesia) 400 MG/5ML suspension 30 mL, 30 mL, Oral, BID PRN, Carlitos Orta MD multiple vitamin tablet, 1 tablet, Oral, Daily, Carlitos Orta MD, 1 tablet at 03/16/22 0809 ondansetron ODT (Zofran-ODT) disintegrating tablet 4 mg, 4 mg, Oral, q6h PRN, Carlitos Orta MD, 4mg at 03/16/22 08 pantoprazole (ProtoNix) EC tablet 20 mg, 20 mg, Oral, qAM AC, Carlitos Orta MD PHENobarbital (Luminal) tablet 97.2 mg, 97.2 mg, Oral, Q4H, Carlitos Orta MD, 97.2 mg at sertraline (Zoloft) tablet 25 mg, 25 mg, Oral, Daily, Carlitos Orta MD Thiamine Mononitrate (Vitamin B1) tablet 100 mg, 100 mg, Oral, Daily, Carlitos Orta MD, 100 mg at03/16/22 0808 traZODone (Desyrel) tablet 100 mg, 100 mg, Oral, PRN, Carlitos Orta MD, 100 mg at 03/15/22 2342 Assessment & Plan Severe alcohol use disorder Polysubstance abuse (alcohol, nicotine, meth, cocaine, history of opioid abuse) Counseled patient on biopsychosocial consequences of substance use. Encouraged professional chemical dependency treatment. Encouraged 12 step meeting attendance. SW to finalize addiction treatment plan with patient: I feel he should go directly to inpatient rehab at this point. He will finalize decision with SW tomorrow. At minimum, entering into our [facility] IOP and MAT program is a good idea. He is welcome to see anshul Handy if interested. I did talk to him about Vivitrol. Alcohol withdrawal ?stimulant withdrawal Nicotine withdrawal Last use of alcohol was on 03/15/22. Phenobarbital taper to manage alcohol withdrawal symptoms. 97 mg q 4 hours for today. Thiamine/folic acid. CIWA scores per unit protocol. PRN medications for withdrawal symptom management added. Nicotine patch. Encouraged to participate in all unit activities. Anxiety/Panic disorder Likely history of depression Tourette's Syndrome Informed consent regarding SSRI obtained - he has tried sertraline in the past, I will start him rob low dose of 25 mg daily now He will need rx at discharge Perhaps we can get him an appointment at [facility] where he has established before If symptoms worsen consider psych consult History of pancreatitis History of SVT/HTN History of GERD Will restart PPI now; he will need rx at discharge He claims he was on BB before; he is cocaine + so will avoid restarting for now, but will monitor for palpitations and monitor BP Elevated liver enzymes Exam benign; consider repeat LFT's prior to discharge Would benefit from outpatient liver US Disposition: Discharge anticipated in 4-5 days. This is pending: Resolution of withdrawal symptoms. Medical stabilization. Labs/tests/tasks to review: liver function, mood, panic attacks, desire to go to rehab, Vivitrol IMinjection on day of discharge. Nurse Ob recommendations: n/a. I spent total time 75 minutes reviewing the patient's medical record, reviewing test results, educating and then counseling the patient on any substance use disorder or chemical dependency related issues. This included a face to face evaluation and physical examination, coordinating care on a substance use disorder treatment plan as well as documenting clinical information on the day of visit. documented in this [facility]02-05-2023 Plan of care note* Care Plan - Yolanda Moreau RN - 03/16/2022 8:27 AM EST Problem: Psychosis Goal: Will report no hallucinations or delusions Outcome: Progressing Flowsheets (Taken 03/16/2022826) Will report no hallucinations or delusions: Administer medication as ordered Assist with reality testing to support increasing orientation Assess if patient's hallucinations or delusions are encouraging self harm or harm to others and intervene as appropriate Problem: Anxiety Goal: Will report anxiety at manageable levels Outcome: Progressing Flowsheets (Taken 03/16/2022826) Will report anxiety at manageable levels: Provide emotional support with 1:1 interaction with staff Teach and rehearse alternative coping skills Administer medication as ordered The patient is Moderately Stable - Low risk of patient condition declining or worsening The patient's goals for the shift include decrease nausea and anxiety The clinical goals for the shift include decrease nausea and anxiety [id number] Plan of care note* Care Plan - Christy Chauhan RN - 03/16/2022 12:40 AM EST Problem: Self Harm/Suicidality Goal: Will have no self-injury during hospital stay Outcome: Progressing Problem: Psychosis Goal: Will report no hallucinations or delusions Outcome: Progressing Problem: Anxiety Goal: Will report anxiety at manageable levels Outcome: Progressing [id number] Emergency department Note* Jovita Thompson RN - 03/15/2022 11:25 PM EST Pt transported to [address] [place] [address] with RN and protective services at bedside. No distress noted. Jovita Thompson RN 03/15/22 5952 Ana M [id number] Emergency department Note* Jovita Thompson RN - 03/15/2022 11:25 PM EST Pt transported to [address] [place] [address] with RN and protective services at bedside. No distress noted. Jovita Thompson RN 03/15/222325 * Jovita Thompson RN - 03/15/2022 11:24 PM EST Pt changed into 2 gowns and socks. Pt wanded by Protective Services and belonging check done. Pt has 2 bags. Jovita Thompson RN 03/15/222324 * Jovita Thompson RN - 03/15/2022 10:58 PM EST Report called to Sis SHI on 4E. Jovita Thompson RN 03/15/22 225 * Jovita Thompson RN - 03/15/2022 10:31 PM EST Beatris LOPEZ at bedside. Jovita Thompson RN 03/15/22 223 * Jovita Thompson RN - 03/15/2022 10:15 PM EST EKG at bedside. Jovita Thompson RN 03/15/22 221 * Jovita Thompson RN - 03/15/2022 9:32 PM EST Pt ambulated with steady gait to restroom to give urine sample. Jovita Thompson RN 03/15/222131 * Jovita Thompson RN - 03/15/2022 8:[address] Weber at bedside. Jovita Thompson RN 03/15/222058 * Jovita Thompson RN - 03/15/2022 8:52 PM EST Pt placed on oil field technician. Seizure precautions in place; side rails up and padded. Jovita Thompson RN 03/15/222051 * Jovita Thompson RN - 03/15/2022 8:16 PM EST Beatris LOPEZ at bedside. Jovita Thompson RN 03/15/222015 * ESTRELLA Tavarez - 03/15/2022 7:53 PM EST EMERGENCY DEPARTMENT ENCOUNTER Pt Name: Roro Valdivia Birthdate 1985 Date of evaluation: 03/15/2022 ED Provider: ESTRELLA Tavarez EDcare was supervised by Dr. Weber who independently examined and evaluated the patient. Pleasesee their attestation note for further details. CHIEF COMPLAINT Chief Complaint Patient presents with Alcohol Problem Pt requesting detox for etoh. HISTORY OF PRESENT ILLNESS (Location/Symptom, Timing/Onset, Context/Setting, Quality, Duration, Modifying Factors, Severity) Note limiting factors. I wore appropriate PPE for the entirety of this encounter. HPI Roro Valdivia is a 36 y.o. male who presents to the emergency department with concern for alcoholwithdrawal. Patient is requesting detox from alcohol, went to [facility], but they said to be because of his withdrawal symptoms he be better suited in the hospital. Patient states that he has been drinkinga gallon of alcohol a day plus a 12 pack of beer. Patient states he been drinking like this for 18 y ears. Patient states he is never had formal detox in the past. Patient states that whenever he doesnot drink he hallucinates, hears things, gets very sweaty, nauseous, vomits and extremely shaky. Patient states he does not believe that he has seizures. Denies any other drug use. Nursing Notes were reviewed. Limitations to history: Outside historians: REVIEW OF SYSTEMS Review of Systems PAST MEDICAL HISTORY Past Medical History: Diagnosis Date CAD (coronary artery disease) GERD (gastroesophageal reflux disease) Hypertension Pancreatitis SVT (supraventricular tachycardia) ([facility] ([facility]) Tourette syndrome SURGICAL HISTORY Past Surgical History: Procedure Laterality Date APPENDECTOMY CURRENT MEDICATIONS Previous Medications No medications on file ALLERGIES Patient has no known allergies. FAMILY HISTORY Family History Problem Relation Name Age of Onset No Known Problems Mother No Known Problems Father SOCIAL HISTORY Social History Socioeconomic History Marital status: Single Tobacco Use Smoking status: Every Day Packs/day: 0.25 Types: Cigarettes Smokeless tobacco: Never Substance and Sexual Activity Alcohol use: Yes Alcohol/week: 12.0 standard drinks Drug use: No SCREENINGS PHYSICAL EXAM ED Triage Vitals Temp Heart Rate Resp BP 03/15/22195503/15/22195503/15/22195603/15/221955 35.9 C (96.7 F) 80 18 (!) 171/123 SpO2 Temp Source Heart Rate Source Patient Position 03/15/22195503/15/22195503/15/22195503/15/222009 98 % Temporal Monitor Sitting BP Location FiO2 (%) 03/15/222009 -- Left arm Physical Exam Vitals and nursing note reviewed. Constitutional: General: He is not in acute distress. Appearance: He is well-developed. HENT: Head: Normocephalic and atraumatic. Eyes: Conjunctiva/sclera: Conjunctivae normal. Cardiovascular: Rate and Rhythm: Normal rate and regular rhythm. Heart sounds: No murmur heard. Pulmonary: Effort: Pulmonary effort is normal. No respiratory distress. Breath sounds: Normal breath sounds. Abdominal: Palpations: Abdomen is soft. Tenderness: There is no abdominal tenderness. Musculoskeletal: General: No swelling. Cervical back: Neck supple. Skin: General: Skin is warm and dry. Capillary Refill: Capillary refill takes less than 2 seconds. Neurological: Mental Status: He is alert. Psychiatric: Mood and Affect: Mood normal. DIAGNOSTIC RESULTS RADIOLOGY (Per Emergency Physician): Interpretation per the Radiologist below, if available at the time of this note: No orders to display LABS: Labs Reviewed CBC WITH AUTO DIFFERENTIAL - Abnormal Result Value Auto WBC 6.0 RBC 4.45 Hemoglobin 14.0 Hematocrit 41.7 MCV 93.7 MCH 31.4 MCHC 33.6 RDW 13.8 Platelets 189 MPV 8.4 nRBC 0.1 Neutrophils Relative 32.6 (*) Lymphocytes Relative 59.5 (*) Monocytes Relative 6.7 Eosinophils Relative 0.6 (*) Basophils Relative 0.6 Neutrophils Absolute 1.9 Lymphocytes Absolute 3.6 Monocytes Absolute 0.4 Eosinophils Absolute 0.0 Basophils Absolute 0.0 COMPREHENSIVE METABOLIC PANEL - Abnormal SODIUM 140 POTASSIUM 4.1 CHLORIDE 105 CARBON DIOXIDE 24 ANION GAP 11 UREA NITROGEN 5 (*) CREATININE 0.74 GLUCOSE 112 (*) CALCIUM 8.9 AST (SGOT) 234 (*) ALT 167 (*) ALKALINE PHOSPHATASE 117 ALBUMIN 4.9 BILIRUBIN, TOTAL 0.5 TOTAL PROTEIN 8.3 (*) eGFR >90.0 ETHANOL - Abnormal ETHANOL IN SER/PLAS 0.289 (*) Narrative: NOTE: This result is for medical treatment only. Analysis performed using non- forensic procedures. LIPASE - Abnormal LIPASE 324 (*) SARS-COV-2 ANTIGEN - Normal SARS-CoV-2 Antigen Negative DRUGS OF ABUSE AMPHETAMINE SCREEN Negative BARBITURATES SCREEN Negative BENZODIAZEPINE SCREEN Negative COCAINE METAB. SCREEN Positive METHADONE SCREEN Negative OPIATES SCREEN Negative OXYCODONE SCREEN Negative PHENCYCLIDINE SCREEN Negative Narrative: The expected value for all of the drugs listed above is Negative. The following drugs or drug groups have been screened for by Immunoassay at the following thresholds: Amphetamine class (1000 ng/mL) Barbiturates (200 ng/mL) Benzodiazepines (200 ng/mL) Cocaine (300 ng/mL) Methadone (300 ng/mL) Opiates (300 ng/mL) Oxycodone (100 ng/mL) PCP (25 ng/mL) NOTE: These results are for medical treatment only. Analysis performed using non-forensic procedures. POSITIVE results are NOT confirmed by a more specific alternative method unless requested. If confirmation is needed, request confirmation under separateorder. All other labs were within normal range or not returned as of this dictation. EMERGENCY DEPARTMENT COURSE and DIFFERENTIAL DIAGNOSIS/MDM: Vitals: Vitals: 03/15/22195503/15/22195603/15/22200903/15/222127 BP: (!) 171/123 (!) 139/91 131/88 BP Location: Left arm Patient Position: Sitting Pulse: 80 70 88 Resp: 18 18 Temp: 35.9 C (96.7 F) TempSrc: Temporal Temporal SpO2: 98% 98% The patient presented with a chief complaint of alcohol withdrawal. Patient requesting detox. Vitalsigns are normal, patient is not tachycardic.. Detox screening labs were obtained. Patient was given IV Ativan, and oral phenobarbital. CIWA protocol was initiated. COVID-negative, CBC is benign. CMP is benign, ethanol is elevated 0.28. Lipase is 324. UDS came back positive for cocaine. EKG was obtained showed no evidence of acute ischemic changes. I spoke with Dr. Orta who is the addiction doctor, and admitted the patient to detox in stable condition. Patient was admitted to the detox unit at this time. Patient is stable for admission Roro Valdivia and myself have engaged in Shared Decision Making to ensure adequate and appropriate information was provided to Roro Valdivia to assist them in choosing a course of treatment basedon their own preferences and concerns. . ED Medications managed: Medications influenza vac subunit quadrivalent (Flucelvax) injection 0.5 mL (has no administration in time range) LORazepam (Ativan) tablet 1 mg (has no administration in time range) Or LORazepam (Ativan) injection 1 mg (has no administration in time range) Or LORazepam (Ativan) tablet 2 mg (has no administration in time range) Or LORazepam (Ativan) injection 2 mg (has no administration in time range) Or LORazepam (Ativan) tablet 3 mg (has no administration in time range) Or LORazepam (Ativan) injection 3 mg (has no administration in time range) Or LORazepam (Ativan) tablet 4 mg (has no administration in time range) Or LORazepam (Ativan) injection 4 mg (has no administration in time range) acetaminophen (Tylenol) tablet 650 mg (has no administration in time range) aluminum & magnesium hydroxide-simethicone (Mylanta) 200-200-20 MG/5ML oral suspension 10 mL (has no administration in time range) folic acid (Folvite) tablet 1 mg (has no administration in time range) hydrOXYzine pamoate (Vistaril) capsule 50 mg (has no administration in time range) loperamide (Imodium) capsule 2 mg (has no administration in time range) magnesium hydroxide (Milk of Magnesia) 400 MG/5ML suspension 30 mL (has no administration in time range) multiple vitamin tablet (has no administration in time range) ondansetron ODT (Zofran-ODT) disintegrating tablet 4 mg (has no administration in time range) PHENobarbital (Luminal) tablet 97.2 mg (has no administration in time range) traZODone (Desyrel) tablet 100 mg (has no administration in time range) Thiamine Mononitrate (Vitamin B1) tablet 100 mg (has no administration in time range) sodium chloride 0.9 % bolus 1,000 mL (0 mL IntraVENous Stopped 03/15/222137) LORazepam (Ativan) injection 2 mg (2 mg IntraVENous Given 03/15/222039) PHENobarbital (Luminal) tablet 97.2 mg (97.2 mg Oral Given 03/15/222042) Prescription drugs considered: PROCEDURES: Unless otherwise noted below, none Procedures FINAL IMPRESSION 1. Alcohol withdrawal with inpatient treatment, uncomplicated (HCC) DISPOSITION Admit 03/15/2022 10:30:30 PM PATIENT REFERRED TO: No follow-up provider specified. DISCHARGE MEDICATIONS: New Prescriptions No medications on file (Comment: Please note this report has been produced using speech recognition software and may contain errors related to that system including errors in grammar, punctuation, and spelling, as well as words and phrases that may be inappropriate. If there are any questions or concerns please feel freeto contact the dictating provider for clarification.) ESTRELLA Tavarez (electronically signed) Emergency Medicine Provider ESTRELLA Tavarez 03/15/220 * Josseline Weber MD - 03/15/2022 7:53 PM EST Emergency Department Encounter [facility] EMERGENCY DEPT Patient: Roro Valdivia : 1985 Date of Evaluation: 03/15/2022 ED Supervising Physician: Josseline Weber MD I independently examined and evaluated Roro Valdivia. This will serve as my Supervisory note and shared attestation. I did perform a substantive portion of the visit including all aspects of the Medical Decision Making. I wore appropriate PPE for the entirety of this encounter. In brief, Roro Valdivia is a 36 y.o. male that presents to the emergency department for evaluation of alcohol abuse. States he requests detox from severe alcohol abuse disorder. Denies recent fevers chills cough cold. States he has had alcohol withdrawal seizures in the past. Focused exam: Awake and alert. Afebrile. Nontoxic. Lungs clear to auscultation. Heart regular rate and rhythm. Abdomen soft nondistended without focal tenderness rebound or guarding. Extremities withequal distal pulses. EKG: Normal sinus rhythm. Rate of 60. Normal axis. Isolated inverted T wave in lead III. Repolarization changes. No significant change compared to previous of 01/27/2022. Today's EKG read by this examiner. Lab studies obtained. Alcohol 289. Toxicology screen positive for cocaine. White count normal. No anemia. COVID screening test is negative. No severe electrolyte abnormalities. There is liver enzyme elevation. Laboratory studies reviewed by this examiner Brief ED course/MDM: Patient presents with alcohol intoxication due to alcohol use disorder. He is requesting detox. He does not have findings of peritonitis or surgical abdomen. There is no neurologic deficits or obvious acute infectious process. Patient is medically clear for admission to detox. All diagnostic, treatment, and disposition decisions were made by myself in conjunction with the [facility]. For all further details of the patient's emergency department visit, please see their documentation. (Comment: Please note this report has been produced using speech recognition software and may contain errors related to that system including errors in grammar, punctuation, and spelling, as well as words and phrases that may be inappropriate. If there are any questions or concerns please feel freeto contact the dictating provider for clarification.) Josseline Weber MD [employer] Josseline Weber MD 03/15/22 7827 documented in this [facility]02-04-2023 Emergency department Note* Jovita Thompson RN - 03/15/2022 11:24 PM EST Pt changed into 2 gowns and socks. Pt wanded by Protective Services and belonging check done. Pt has 2 bags. Jovita Thompson RN 03/15/22 2325 [id number] Emergency department Note* Jovita Thompson RN - 03/15/2022 10:58 PM EST Report called to Sis SHI on 4E. Jovita Thompson RN 03/15/22 225 [id number] Emergency department Note* Jovita Thompson RN - 03/15/2022 10:31 PM EST Beatris LOPEZ at bedside. Jvoita Thompson RN 03/15/22 223 [id number] Emergency department Note* Jovita Thompson RN - 03/15/2022 10:15 PM EST EKG at bedside. Jovita Thompson RN 03/15/22 2215 [id number] Emergency department Note* Jovita Thompson RN - 03/15/2022 9:32 PM EST Pt ambulated with steady gait to restroom to give urine sample. Jovita Thompson RN 03/15/222131 [id number] NoteNOTE: This result is for medical treatment only. Analysis performed using non-forensic procedures. [id number] Emergency department Note* Jovita Thompson RN - 03/15/2022 8:[address] Weber at bedside. Jovita Thompson RN 03/15/222058 [facility] [id number] Emergency department Note* Jovita Thompson RN - 03/15/2022 8:52 PM EST Pt placed on oil field technician. Seizure precautions in place; side rails up and padded. Jovita Thompson RN 03/15/222051 [id number] Emergency department Note* Jovita Thompson RN - 03/15/2022 8:16 PM EST Beatris LOPEZ at bedside. Jovita Thompson RN 03/15/222015 [id number] Physician Emergency department Note* ESTRELLA Tavarez - 03/15/2022 7:53 PM EST EMERGENCY DEPARTMENT ENCOUNTER Pt Name: Roro Valdivia Birthdate 1985 Date of evaluation: 03/15/2022 ED Provider: ESTRELLA Tavarez EDcare was supervised by Dr. Weber who independently examined and evaluated the patient. Pleasesee their attestation note for further details. CHIEF COMPLAINT Chief Complaint Patient presents with Alcohol Problem Pt requesting detox for etoh. HISTORY OF PRESENT ILLNESS (Location/Symptom, Timing/Onset, Context/Setting, Quality, Duration, Modifying Factors, Severity) Note limiting factors. I wore appropriate PPE for the entirety of this encounter. HPI Roro Valdivia is a 36 y.o. male who presents to the emergency department with concern for alcoholwithdrawal. Patient is requesting detox from alcohol, went to [facility], but they said to be because of his withdrawal symptoms he be better suited in the hospital. Patient states that he has been drinkinga gallon of alcohol a day plus a 12 pack of beer. Patient states he been drinking like this for 18 y ears. Patient states he is never had formal detox in the past. Patient states that whenever he doesnot drink he hallucinates, hears things, gets very sweaty, nauseous, vomits and extremely shaky. Patient states he does not believe that he has seizures. Denies any other drug use. Nursing Notes were reviewed. Limitations to history: Outside historians: REVIEW OF SYSTEMS Review of Systems PAST MEDICAL HISTORY Past Medical History: Diagnosis Date CAD (coronary artery disease) GERD (gastroesophageal reflux disease) Hypertension Pancreatitis SVT (supraventricular tachycardia) ([facility] ([facility]) Tourette syndrome SURGICAL HISTORY Past Surgical History: Procedure Laterality Date APPENDECTOMY CURRENT MEDICATIONS Previous Medications No medications on file ALLERGIES Patient has no known allergies. FAMILY HISTORY Family History Problem Relation Name Age of Onset No Known Problems Mother No Known Problems Father SOCIAL HISTORY Social History Socioeconomic History Marital status: Single Tobacco Use Smoking status: Every Day Packs/day: 0.25 Types: Cigarettes Smokeless tobacco: Never Substance and Sexual Activity Alcohol use: Yes Alcohol/week: 12.0 standard drinks Drug use: No SCREENINGS PHYSICAL EXAM ED Triage Vitals Temp Heart Rate Resp BP 03/15/22195503/15/22195503/15/22195603/15/221955 35.9 C (96.7 F) 80 18 (!) 171/123 SpO2 Temp Source Heart Rate Source Patient Position 03/15/22195503/15/22195503/15/22195503/15/222009 98 % Temporal Monitor Sitting BP Location FiO2 (%) 03/15/222009 -- Left arm Physical Exam Vitals and nursing note reviewed. Constitutional: General: He is not in acute distress. Appearance: He is well-developed. HENT: Head: Normocephalic and atraumatic. Eyes: Conjunctiva/sclera: Conjunctivae normal. Cardiovascular: Rate and Rhythm: Normal rate and regular rhythm. Heart sounds: No murmur heard. Pulmonary: Effort: Pulmonary effort is normal. No respiratory distress. Breath sounds: Normal breath sounds. Abdominal: Palpations: Abdomen is soft. Tenderness: There is no abdominal tenderness. Musculoskeletal: General: No swelling. Cervical back: Neck supple. Skin: General: Skin is warm and dry. Capillary Refill: Capillary refill takes less than 2 seconds. Neurological: Mental Status: He is alert. Psychiatric: Mood and Affect: Mood normal. DIAGNOSTIC RESULTS RADIOLOGY (Per Emergency Physician): Interpretation per the Radiologist below, if available at the time of this note: No orders to display LABS: Labs Reviewed CBC WITH AUTO DIFFERENTIAL - Abnormal Result Value Auto WBC 6.0 RBC 4.45 Hemoglobin 14.0 Hematocrit 41.7 MCV 93.7 MCH 31.4 MCHC 33.6 RDW 13.8 Platelets 189 MPV 8.4 nRBC 0.1 Neutrophils Relative 32.6 (*) Lymphocytes Relative 59.5 (*) Monocytes Relative 6.7 Eosinophils Relative 0.6 (*) Basophils Relative 0.6 Neutrophils Absolute 1.9 Lymphocytes Absolute 3.6 Monocytes Absolute 0.4 Eosinophils Absolute 0.0 Basophils Absolute 0.0 COMPREHENSIVE METABOLIC PANEL - Abnormal SODIUM 140 POTASSIUM 4.1 CHLORIDE 105 CARBON DIOXIDE 24 ANION GAP 11 UREA NITROGEN 5 (*) CREATININE 0.74 GLUCOSE 112 (*) CALCIUM 8.9 AST (SGOT) 234 (*) ALT 167 (*) ALKALINE PHOSPHATASE 117 ALBUMIN 4.9 BILIRUBIN, TOTAL 0.5 TOTAL PROTEIN 8.3 (*) eGFR >90.0 ETHANOL - Abnormal ETHANOL IN SER/PLAS 0.289 (*) Narrative: NOTE: This result is for medical treatment only. Analysis performed using non- forensic procedures. LIPASE - Abnormal LIPASE 324 (*) SARS-COV-2 ANTIGEN - Normal SARS-CoV-2 Antigen Negative DRUGS OF ABUSE AMPHETAMINE SCREEN Negative BARBITURATES SCREEN Negative BENZODIAZEPINE SCREEN Negative COCAINE METAB. SCREEN Positive METHADONE SCREEN Negative OPIATES SCREEN Negative OXYCODONE SCREEN Negative PHENCYCLIDINE SCREEN Negative Narrative: The expected value for all of the drugs listed above is Negative. The following drugs or drug groups have been screened for by Immunoassay at the following thresholds: Amphetamine class (1000 ng/mL) Barbiturates (200 ng/mL) Benzodiazepines (200 ng/mL) Cocaine (300 ng/mL) Methadone (300 ng/mL) Opiates (300 ng/mL) Oxycodone (100 ng/mL) PCP (25 ng/mL) NOTE: These results are for medical treatment only. Analysis performed using non-forensic procedures. POSITIVE results are NOT confirmed by a more specific alternative method unless requested. If confirmation is needed, request confirmation under separateorder. All other labs were within normal range or not returned as of this dictation. EMERGENCY DEPARTMENT COURSE and DIFFERENTIAL DIAGNOSIS/MDM: Vitals: Vitals: 03/15/22195503/15/22195603/15/22200903/15/222127 BP: (!) 171/123 (!) 139/91 131/88 BP Location: Left arm Patient Position: Sitting Pulse: 80 70 88 Resp: 18 18 Temp: 35.9 C (96.7 F) TempSrc: Temporal Temporal SpO2: 98% 98% The patient presented with a chief complaint of alcohol withdrawal. Patient requesting detox. Vitalsigns are normal, patient is not tachycardic.. Detox screening labs were obtained. Patient was given IV Ativan, and oral phenobarbital. CIWA protocol was initiated. COVID-negative, CBC is benign. CMP is benign, ethanol is elevated 0.28. Lipase is 324. UDS came back positive for cocaine. EKG was obtained showed no evidence of acute ischemic changes. I spoke with Dr. Orta who is the addiction doctor, and admitted the patient to detox in stable condition. Patient was admitted to the detox unit at this time. Patient is stable for admission Roro Valdivia and myself have engaged in Shared Decision Making to ensure adequate and appropriate information was provided to Roro Valdivia to assist them in choosing a course of treatment basedon their own preferences and concerns. . ED Medications managed: Medications influenza vac subunit quadrivalent (Flucelvax) injection 0.5 mL (has no administration in time range) LORazepam (Ativan) tablet 1 mg (has no administration in time range) Or LORazepam (Ativan) injection 1 mg (has no administration in time range) Or LORazepam (Ativan) tablet 2 mg (has no administration in time range) Or LORazepam (Ativan) injection 2 mg (has no administration in time range) Or LORazepam (Ativan) tablet 3 mg (has no administration in time range) Or LORazepam (Ativan) injection 3 mg (has no administration in time range) Or LORazepam (Ativan) tablet 4 mg (has no administration in time range) Or LORazepam (Ativan) injection 4 mg (has no administration in time range) acetaminophen (Tylenol) tablet 650 mg (has no administration in time range) aluminum & magnesium hydroxide-simethicone (Mylanta) 200-200-20 MG/5ML oral suspension 10 mL (has no administration in time range) folic acid (Folvite) tablet 1 mg (has no administration in time range) hydrOXYzine pamoate (Vistaril) capsule 50 mg (has no administration in time range) loperamide (Imodium) capsule 2 mg (has no administration in time range) magnesium hydroxide (Milk of Magnesia) 400 MG/5ML suspension 30 mL (has no administration in time range) multiple vitamin tablet (has no administration in time range) ondansetron ODT (Zofran-ODT) disintegrating tablet 4 mg (has no administration in time range) PHENobarbital (Luminal) tablet 97.2 mg (has no administration in time range) traZODone (Desyrel) tablet 100 mg (has no administration in time range) Thiamine Mononitrate (Vitamin B1) tablet 100 mg (has no administration in time range) sodium chloride 0.9 % bolus 1,000 mL (0 mL IntraVENous Stopped 03/15/222137) LORazepam (Ativan) injection 2 mg (2 mg IntraVENous Given 03/15/222039) PHENobarbital (Luminal) tablet 97.2 mg (97.2 mg Oral Given 03/15/222042) Prescription drugs considered: PROCEDURES: Unless otherwise noted below, none Procedures FINAL IMPRESSION 1. Alcohol withdrawal with inpatient treatment, uncomplicated (HCC) DISPOSITION Admit 03/15/2022 10:30:30 PM PATIENT REFERRED TO: No follow-up provider specified. DISCHARGE MEDICATIONS: New Prescriptions No medications on file (Comment: Please note this report has been produced using speech recognition software and may contain errors related to that system including errors in grammar, punctuation, and spelling, as well as words and phrases that may be inappropriate. If there are any questions or concerns please feel freeto contact the dictating provider for clarification.) ESTRELLA Tavarez (electronically signed) Emergency Medicine Provider ESTRELLA Tavarez 03/15/222239 [id number] Emergency [facility] Note* Josseline Weber MD - 03/15/2022 7:53 PM EST Emergency Department Encounter [facility] EMERGENCY DEPT Patient: Roro Valdivia : 1985 Date of Evaluation: 03/15/2022 ED Supervising Physician: Josseline Weber MD I independently examined and evaluated Roro Valdivia. This will serve as my Supervisory note and shared attestation. I did perform a substantive portion of the visit including all aspects of the Medical Decision Making. I wore appropriate PPE for the entirety of this encounter. In brief, Roro Valdivia is a 36 y.o. male that presents to the emergency department for evaluation of alcohol abuse. States he requests detox from severe alcohol abuse disorder. Denies recent fevers chills cough cold. States he has had alcohol withdrawal seizures in the past. Focused exam: Awake and alert. Afebrile. Nontoxic. Lungs clear to auscultation. Heart regular rate and rhythm. Abdomen soft nondistended without focal tenderness rebound or guarding. Extremities withequal distal pulses. EKG: Normal sinus rhythm. Rate of 60. Normal axis. Isolated inverted T wave in lead III. Repolarization changes. No significant change compared to previous of 01/27/2022. Today's EKG read by this examiner. Lab studies obtained. Alcohol 289. Toxicology screen positive for cocaine. White count normal. No anemia. COVID screening test is negative. No severe electrolyte abnormalities. There is liver enzyme elevation. Laboratory studies reviewed by this examiner Brief ED course/MDM: Patient presents with alcohol intoxication due to alcohol use disorder. He is requesting detox. He does not have findings of peritonitis or surgical abdomen. There is no neurologic deficits or obvious acute infectious process. Patient is medically clear for admission to detox. All diagnostic, treatment, and disposition decisions were made by myself in conjunction with the [facility]. For all further details of the patient's emergency department visit, please see their documentation. (Comment: Please note this report has been produced using speech recognition software and may contain errors related to that system including errors in grammar, punctuation, and spelling, as well as words and phrases that may be inappropriate. If there are any questions or concerns please feel freeto contact the dictating provider for clarification.) Josseline Weber MD [facility] Josseline Weber MD 03/15/[address] [facility] [employer] Work Phone: Consult note [facility] Medical Records Department [address] [place] [address] Counseling Note - Pharmacy 12/01/242 MR#: [id number] Acct: [id number] Name: RORO VALDIVIA Rep #:[id number] : 1985 39 From: Israel gary PCP: Care Physician,No Primary Status :ADM IN Y Location: [facility] [id number] Pharmacy [place] Med Recon[facility] Pharmacy Service has performed discharge medication reconciliation for this patient. The patient's discharge medication list was reviewed for discrepancies and discrepancies were resolved. Medications at Discharge Home Medications clonidine HCl 0.1 mg tablet 0.1 mg PO BID anxiety 11/29/24 hydroxyzine HCl 25 mg tablet 25 mg PO QHS PRN sleep 11/29/24 melatonin 10 mg capsule 20 mg PO QHS sleep 11/29/24 methadone 10 mg tablet 140 mg PO DAILY opiates and alcohol cravings and anxiety 11/29/24 metoprolol succinate 50 mg PO DAILY palpitations 11/29/24 pantoprazole 20 mg PO BID gerd 11/29/24 venlafaxine 75 mg tablet 75 mg PO DAILY anxiety 11/29/24 12/01/24 1022 ebly> Date _ Israel Orosco Signature (if applicable): Date CC: ~ [facility] Israel Rodriguez [facility] Note Date/Time December 01, 2024 1 :15pm [facility] Medical Records Department [address] [place] [address] Counseling Note - Pharmacy 12/01/24 1022 MR#: [id number] Acct: [id number] Name: RORO VALDIVIA Rep #:[id number] : 1985 39 From: Israel gary PCP: Care Physician,No Primary Status :ADM IN Y Location: [place] [address] Pharmacy [place] Med Recon[facility] Pharmacy Service has performed discharge medication reconciliation for this patient. The patient's discharge medication list was reviewed for discrepancies and discrepancies were resolved. Medications at Discharge Home Medications clonidine HCl 0.1 mg tablet 0.1 mg PO BID anxiety 11/29/24 hydroxyzine HCl 25 mg tablet 25 mg PO QHS PRN sleep 11/29/24 melatonin 10 mg capsule 20 mg PO QHS sleep 11/29/24 methadone 10 mg tablet 140 mg PO DAILY opiates and alcohol cravings and anxiety 11/29/24 metoprolol succinate 50 mg PO DAILY palpitations 11/29/24 pantoprazole 20 mg PO BID gerd 11/29/24 venlafaxine 75 mg tablet 75 mg PO DAILY anxiety 11/29/24 12/01/24 1022 <Electronically signed by Israel Argueta> Date _ Israel Orosco Signature (if applicable): Date CC: ~ Signed [facility] Work Phone: Discharge summary [facility] Medical Records Department [address] [place] [address] Discharge Summary 12/01/24 0959 MR#: [id number] Acct: [id number] Name: MIGDALIARORO ERAZO ADRIAN Rep #:[id number] : 1985 39 From: Joe Mcmillan DO PCP: Care Physician,No Primary Status :ADM IN Location: [place] [address] Providers Date of Admission: 11/30/24 Primary Care Physician: No Primary Care Phys Reason For Visit: ETOH DETOX Diagnosis Discharge Diagnosis (1) Chronic alcohol abuse: Status: Chronic Code(s): F10.10 - Alcohol abuse, uncomplicated (2) History of drug abuse: Status: Acute Code(s): F19.11 - Other psychoactive substance abuse, in remission (3) Tobacco abuse: Status: Acute Code(s): Z72.0 - Tobacco use (4) Depression: Status: Acute Code(s): F32.A - Depression, unspecified Qualifiers: Depression Type: unspecified Qualified Code(s): F32.A - Depression, unspecified (5) Anxiety disorder with panic attacks: Status: Acute Code(s): F41.9 - Anxiety disorder, unspecified Plan Alcohol withdrawal * on phenobarbital taper * thiamine and folate * uncomplicated. Per patient, had only been drinking heavily for 2 days. He will follow up with [facility] for further IOP. * pt reports that he takes methadone for his alcohol hisotory and anxiety. UDS positive for methadone and cannabinoids complicating sobriety Chronic medical conditions: * Tobacco Abuse compounding. Tobacco Cessation will be strongly encouraged with Nicotine patch offered to control cravings. * Depression with anxiety and panic attacks; on venlafaxine. Recommend he follow up * Essential hypertension; on metoprolol and clonidine twice daily - Maintain home regimen as before. * History of seizure disorder; currently not on treatment - Give IV lorazepam prn for breakthrough seizure activity. * History of Tourette syndrome - Noted with no evidence of tics or verbal outbursts. * GERD; on pantoprazole - Maintain PPI. * Cirrhosis: told he has cirrhosis by his GI physicians in [place]. Advised ongoing discontinuation of alcohol. DVT prophylaxis - Enoxaparin 40 mg sq daily plus up ad cameron. Medications at Discharge Home Medications clonidine HCl 0.1 mg tablet 0.1 mg PO BID anxiety 11/29/24 hydroxyzine HCl 25 mg tablet 25 mg PO QHS PRN sleep 11/29/24 melatonin 10 mg capsule 20 mg PO QHS sleep 11/29/24 methadone 10 mg tablet 140 mg PO DAILY opiates and alcohol cravings and anxiety 11/29/24 metoprolol succinate 50 mg PO DAILY palpitations 11/29/24 pantoprazole 20 mg PO BID gerd 11/29/24 venlafaxine 75 mg tablet 75 mg PO DAILY anxiety 11/29/24 Hospital Course Operations None Procedures None Weight / BMI Weight Weight: 84.323 kg Body Mass Index (BMI) 24.5 ABG / Lab / Microbiology Data 11/29/24 21:19 11/29/24 21:19 D/C Instructions DC O2, CPAP, BIPAP Needs Home O2 Discharge instructions: No Meaningful Use Info Meaningful Use Meaningful Use Diagnoses (Choose all that apply): None applicable Discharge Plan Admission Admit Date/Time: 11/30/24 01:34 Primary Reason for Your Visit: alcohol withdrawal. Attending Provider: Joe Mcmillan Primary Care Provider: Care Physician,No Primary Consulting Providers: Lázaro Brush Discharge Orders/Prescriptions Prescriptions: Continued metoprolol succinate 50 mg PO DAILY venlafaxine 75 mg tablet 75 mg PO DAILY clonidine HCl 0.1 mg tablet 0.1 mg PO BID hydroxyzine HCl 25 mg tablet 25 mg PO QHS PRN (Reason: sleep) pantoprazole [Protonix] 20 mg PO BID melatonin 10 mg capsule 20 mg PO QHS methadone 10 mg tablet 140 mg PO DAILY Referrals / Follow Up: Care Physician,No Primary [Primary Care Provider, Medical] Disposition Disposition (needs filled in before D/C Order can be placed): Home, Self Care Charges/Coding Visit Charges Inpatient E&M: 41374 Disch Hosp 12/01/24 1003 Cosigner Signature (if applicable): CC: Dr. Joe Mcmillan DO; No Primary Care Physician~ [facility] Author Joe Mcmillan [facility] Note Date/Time December 01, 2024 1 1:03am [facility] Medical Records Department [address] [place] [address] Discharge Summary 12/01/24 0959 MR#: [id number] Acct: [id number] Name: RORO VALDIVIA Rep #:[id number] : 1985 39 From: Joe Mcmillan DO PCP: Care Physician,No Primary Status :ADM IN Location: [place] [address] Providers Date of Admission: 11/30/24 Primary Care Physician: No Primary Care Phys Reason For Visit: ETOH DETOX Diagnosis Discharge Diagnosis (1) Chronic alcohol abuse: Status: Chronic Code(s): F10.10 - Alcohol abuse, uncomplicated (2) History of drug abuse: Status: Acute Code(s): F19.11 - Other psychoactive substance abuse, in remission (3) Tobacco abuse: Status: Acute Code(s): Z72.0 - Tobacco use (4) Depression: Status: Acute Code(s): F32.A - Depression, unspecified Qualifiers: Depression Type: unspecified Qualified Code(s): F32.A - Depression, unspecified (5) Anxiety disorder with panic attacks: Status: Acute Code(s): F41.9 - Anxiety disorder, unspecified Plan Alcohol withdrawal * on phenobarbital taper * thiamine and folate * uncomplicated. Per patient, had only been drinking heavily for 2 days. He will follow up with [facility] for further IOP. * pt reports that he takes methadone for his alcohol hisotory and anxiety. UDS positive for methadone and cannabinoids complicating sobriety Chronic medical conditions: * Tobacco Abuse compounding. Tobacco Cessation will be strongly encouraged with Nicotine patch offered to control cravings. * Depression with anxiety and panic attacks; on venlafaxine. Recommend he follow up * Essential hypertension; on metoprolol and clonidine twice daily - Maintain home regimen as before. * History of seizure disorder; currently not on treatment - Give IV lorazepam prn for breakthrough seizure activity. * History of Tourette syndrome - Noted with no evidence of tics or verbal outbursts. * GERD; on pantoprazole - Maintain PPI. * Cirrhosis: told he has cirrhosis by his GI physicians in [place]. Advised ongoing discontinuation of alcohol. DVT prophylaxis - Enoxaparin 40 mg sq daily plus up ad cameron. Medications at Discharge Home Medications clonidine HCl 0.1 mg tablet 0.1 mg PO BID anxiety 11/29/24 hydroxyzine HCl 25 mg tablet 25 mg PO QHS PRN sleep 11/29/24 melatonin 10 mg capsule 20 mg PO QHS sleep 11/29/24 methadone 10 mg tablet 140 mg PO DAILY opiates and alcohol cravings and anxiety 11/29/24 metoprolol succinate 50 mg PO DAILY palpitations 11/29/24 pantoprazole 20 mg PO BID gerd 11/29/24 venlafaxine 75 mg tablet 75 mg PO DAILY anxiety 11/29/24 Hospital Course Operations None Procedures None Weight / BMI Weight Weight: 84.323 kg Body Mass Index (BMI) 24.5 ABG / Lab / Microbiology Data 11/29/24 21:19 11/29/24 21:19 D/C Instructions DC O2, CPAP, BIPAP Needs Home O2 Discharge instructions: No Meaningful Use Info Meaningful Use Meaningful Use Diagnoses (Choose all that apply): None applicable Discharge Plan Admission Admit Date/Time: 11/30/24 01:34 Primary Reason for Your Visit: alcohol withdrawal. Attending Provider: Joe Mcmillan Primary Care Provider: [place] Physician,No Primary Consulting Providers: Lázaro Brush Discharge Orders/Prescriptions Prescriptions: Continued metoprolol succinate 50 mg PO DAILY venlafaxine 75 mg tablet 75 mg PO DAILY clonidine HCl 0.1 mg tablet 0.1 mg PO BID hydroxyzine HCl 25 mg tablet 25 mg PO QHS PRN (Reason: sleep) pantoprazole [Protonix] 20 mg PO BID melatonin 10 mg capsule 20 mg PO QHS methadone 10 mg tablet 140 mg PO DAILY Referrals / Follow Up: Care Physician,No Primary [Primary Care Provider, Medical] Disposition Disposition (needs filled in before D/C Order can be placed): Home, Self Care Charges/Coding Visit Charges Inpatient E&M: 14101 Disch Hosp 12/01/24 1003 <Electronically signed by Joe Mcmillan DO> Cosigner Signature (if applicable): CC: Dr. Joe Mcmillan DO; No Primary Care Physician~ Signed [facility] Work Phone: Evaluation note* Diagnosis Chest pain, unspecified type- Primary Anxiety attack Panic disorder without agoraphobia documented [facility] encounter [facility]* Diagnosis Suicide attempt (HCC)- Primary Suicide and self-inflicted injury by unspecified means [facility]* Diagnosis Anxiety- Primary Anxiety state, unspecified documented [facility]* Diagnosis Acute gout of left foot, unspecified cause- Primary documented [facility]* Diagnosis Alcohol abuse- Primary Nondependent alcohol abuse, unspecified drinking behavior Alcohol abuse Nondependent alcohol abuse, unspecified drinking behavior documented [facility]* Diagnosis Sprain of left knee, initial encounter- Primary Closed head injury, initial encounter documented [facility]* Diagnosis Alcohol withdrawal syndrome without complication (HCC)- Primary Alcohol withdrawal syndrome without complication (HCC) Polysubstance abuse (CMS/HCC) (HCC) Other, mixed, or unspecified nondependent drug abuse, unspecified Opioid use disorder Polysubstance use disorder Benzodiazepine withdrawal with complication (HCC) Opioid withdrawal (HCC) Drug withdrawal Amphetamine withdrawal (HCC) Drug withdrawal [facility]* Diagnosis Severe opioid use disorder (HCC)- Primary Alcohol-induced insomnia (CMS/HCC) (HCC) Mild intermittent asthma without complication Anxiety Anxiety state, unspecified Tourette syndrome Tourette's disorder Severe alcohol use disorder (HCC) Encounter for smoking cessation counseling Nausea Nausea alone documented [facility]* Diagnosis Severe opioid use disorder (HCC)- Primary Alcohol-induced insomnia (CMS/HCC) (HCC) Mild intermittent asthma without complication Anxiety Anxiety state, unspecified Tourette syndrome Tourette's disorder Severe alcohol use disorder (HCC) Encounter for smoking cessation counseling Nausea Nausea alone documented [facility]* Diagnosis Gastroesophageal reflux disease without esophagitis- Primary Esophageal reflux Anxiety Anxiety state, unspecified Alcohol-induced insomnia (CMS/HCC) (HCC) Severe opioid use disorder (HCC) documented [facility]* Diagnosis 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 documented [facility]* Diagnosis 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 Polysubstance use disorder Panic disorder Panic disorder without agoraphobia Alcohol abuse Nondependent alcohol abuse, unspecified drinking behavior Tourette syndrome Tourette's disorder SVT (supraventricular tachycardia) Other specified cardiac dysrhythmias History of pancreatitis Personal history of other diseases of digestive disease documented [facility]* Diagnosis 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 Polysubstance use disorder Panic disorder Panic disorder without agoraphobia Alcohol abuse Nondependent alcohol abuse, unspecified drinking behavior Tourette syndrome Tourette's disorder SVT (supraventricular tachycardia) Other specified cardiac dysrhythmias History of pancreatitis Personal history of other diseases of digestive disease [facility] Diagnosis Encounter for testing for latent tuberculosis- Primary documented [facility]* Diagnosis Opioid use disorder, severe, on maintenance therapy (HCC)- Primary [facility]* Diagnosis Severe opioid use disorder (HCC)- Primary Palpitations documented in [facility]* Diagnosis Severe opioid use disorder (HCC)- Primary Palpitations [facility] Diagnosis Severe [facility] disorder (HCC) [facility] Alcohol use disorder- Primary Alcohol use disorder Hypoxia Hypoxemia Transaminitis Nonspecific elevation of levels of transaminase or lactic acid dehydrogenase (LDH) Opioid withdrawal (HCC) Drug withdrawal Anxiety Anxiety state, unspecified [facility] Opioid withdrawal (HCC) Drug withdrawal [facility] Opioid withdrawal (HCC) Drug withdrawal [facility] Diagnosis Alcohol withdrawal syndrome without complication (HCC)- Primary Transaminitis Nonspecific elevation of levels of transaminase or lactic acid dehydrogenase (LDH) Alcohol abuse Nondependent alcohol abuse, unspecified drinking behavior Alcohol withdrawal syndrome without complication (HCC) Opioid withdrawal (HCC) Drug withdrawal Tourette syndrome Tourette's disorder Severe alcohol use disorder (HCC) Severe opioid use disorder on maintenance therapy (HCC) Severe episode of recurrent major depressive disorder, without psychotic features (HCC) [facility] Anxiety Anxiety state, unspecified Palpitations Opioid withdrawal (HCC) [facility] Diagnosis Severe opioid use disorder (HCC) Major depressive disorder, recurrent episode, moderate (HCC) Major depressive disorder, recurrent episode, moderate RODRIGUEZ (generalized anxiety disorder) Generalized anxiety disorder Motor tic disorder Tic disorder, unspecified [facility] Diagnosis Opioid withdrawal (HCC) Drug withdrawal Severe alcohol use disorder (HCC) Major depressive disorder, recurrent episode, moderate (HCC) Major depressive disorder, recurrent episode, moderate RODRIGUEZ (generalized anxiety disorder) Generalized anxiety disorder Motor tic disorder Tic disorder, unspecified [facility] Diagnosis Severe opioid use disorder (HCC) Motor tic disorder Tic disorder, unspecified Major depressive disorder, recurrent episode, moderate (HCC) Major depressive disorder, recurrent episode, moderate RODRIGUEZ (generalized anxiety disorder) Generalized anxiety disorder Severe alcohol use disorder (HCC) [facility] Diagnosis Severe opioid use disorder (HCC) Motor tic disorder Tic disorder, unspecified [facility] Diagnosis Alcohol-induced acute pancreatitis, unspecified complication status- Primary [facility] Diagnosis Severe opioid use disorder (HCC) Severe alcohol use disorder (HCC) Major depressive disorder, recurrent episode, moderate (HCC) Major depressive disorder, recurrent episode, moderate RODRIGUEZ (generalized anxiety disorder) Generalized anxiety disorder Tourette syndrome Tourette's disorder [facility] Diagnosis Alcohol-induced acute pancreatitis, unspecified complication status- Primary [facility] Diagnosis Acute recurrent pancreatitis- Primary Acute pancreatitis Acute recurrent pancreatitis Acute pancreatitis [facility] Diagnosis Severe alcohol use disorder (HCC) Major depressive disorder, recurrent episode, moderate (HCC) Major depressive disorder, recurrent episode, moderate RODRIGUEZ (generalized anxiety disorder) Generalized anxiety disorder Tourette syndrome Tourette's disorder [facility] Diagnosis Acute pancreatitis without infection or necrosis- Primary Acute pancreatitis without infection or necrosis Cardiomegaly Arm vein blood clot, right Moderate malnutrition (CMS/HCC) (HCC) [facility] Diagnosis Alcoholic intoxication without complication (CMS/HCC) (HCC)- Primary Alcoholic intoxication without complication (CMS/HCC) (HCC) Hematemesis of unknown etiology Other depression Hematemesis of unknown etiology [facility] Diagnosis Abdominal pain, epigastric- Primary Acute pancreatitis, unspecified complication status, unspecified pancreatitis type [facility]* Diagnosis Alcohol withdrawal with inpatient treatment, uncomplicated (HCC)- Primary Alcohol withdrawal with inpatient treatment, uncomplicated (HCC) Severe alcohol use disorder (HCC) Cocaine abuse (HCC) Nondependent cocaine abuse, unspecified Elevated liver enzymes Other nonspecific abnormal serum enzyme levels Panic disorder Panic disorder without agoraphobia [facility] Diagnosis Alcohol-induced acute pancreatitis, unspecified complication status- Primary Abdominal pain, generalized Alcohol-induced acute pancreatitis, unspecified complication status [facility]* Diagnosis Alcohol withdrawal syndrome without complication (HCC)- Primary Alcohol withdrawal syndrome without complication (HCC) Severe malnutrition (CMS/HCC) (HCC) Nutritional marasmus [facility] Diagnosis Pain of upper abdomen- Primary Transaminitis Nonspecific elevation of levels of transaminase or lactic acid dehydrogenase (LDH) Alcohol-induced chronic pancreatitis (CMS/HCC) (HCC) Chronic pancreatitis Alcohol use disorder [facility] Diagnosis Severe alcohol use disorder (HCC) Major depressive disorder, recurrent episode, moderate (HCC) Major depressive disorder, recurrent episode, moderate RODRIGUEZ (generalized anxiety disorder) Generalized anxiety disorder Tourette syndrome Tourette's disorder [facility] Diagnosis Alcohol-induced acute pancreatitis, unspecified complication status- Primary Alcohol-induced acute pancreatitis, unspecified complication status Alcohol withdrawal syndrome without complication (HCC) Pancreatitis, unspecified pancreatitis type Pancreatitis, unspecified pancreatitis type [facility]* Diagnosis Acute recurrent pancreatitis- Primary Acute pancreatitis Acute recurrent pancreatitis Acute pancreatitis [facility]* Diagnosis Alcohol-induced acute pancreatitis without infection or necrosis- Primary [facility]* Diagnosis Alcohol-induced chronic pancreatitis (CMS/HCC) (HCC)- Primary Chronic pancreatitis Abdominal pain, generalized [facility]* Diagnosis Acute on chronic pancreatitis (CMS/HCC) (HCC)- Primary [facility]* Diagnosis Acute on chronic pancreatitis (CMS/HCC) (HCC)- Primary History of alcohol abuse Nondependent alcohol abuse, in remission Polysubstance use disorder [facility]* Diagnosis Alcohol-induced chronic pancreatitis (CMS/HCC) (HCC)- Primary Chronic pancreatitis Pain of upper abdomen Acute on chronic pancreatitis (CMS/HCC) (HCC) [facility]* Diagnosis Abdominal pain, unspecified abdominal location- Primary Chronic pancreatitis, unspecified pancreatitis type (HCC) [facility]* Diagnosis Alcohol-induced chronic pancreatitis (CMS/HCC) (HCC)- Primary Chronic pancreatitis [facility]* Diagnosis Epigastric abdominal pain- Primary Abdominal pain, epigastric Chronic pancreatitis, unspecified pancreatitis type (HCC) [facility]* Diagnosis Acute on chronic pancreatitis (CMS/HCC) (HCC) [facility]* Diagnosis Alcohol-induced acute pancreatitis without infection or necrosis- Primary [facility]* Diagnosis Severe opioid use disorder (HCC) Severe alcohol use disorder (HCC) 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 (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 [facility]* Diagnosis Severe opioid use disorder (HCC) Motor tic disorder Tic disorder, unspecified RODRIGUEZ (generalized anxiety disorder) Generalized anxiety disorder Major depressive disorder, recurrent episode, moderate (HCC) Major depressive disorder, recurrent episode, moderate documented in this encounter [facility]* Diagnosis Alcohol induced acute pancreatitis without necrosis or infection- Primary Elevated liver enzymes Other nonspecific abnormal serum enzyme levels documented in this encounter [facility] note* Diagnosis Alcohol induced acute pancreatitis without necrosis or infection- Primary Elevated liver enzymes Other nonspecific abnormal serum enzyme levels Elevated liver enzymes Other nonspecific abnormal serum enzyme levels documented in this encounter [facility] note* Diagnosis Elevated liver enzymes- Primary Other nonspecific abnormal serum enzyme levels documented in this encounter [facility] note* Diagnosis Alcoholic cirrhosis of liver without ascites (CMS/HCC) (HCC)- Primary Alcohol induced acute pancreatitis without necrosis or infection Elevated liver enzymes Other nonspecific abnormal serum enzyme levels History of alcohol abuse Nondependent alcohol abuse, in remission Polysubstance use disorder History of esophagitis [facility] Diagnosis Alcoholic cirrhosis of liver without ascites (HCC)- Primary Alcohol induced acute pancreatitis without necrosis or infection Elevated liver enzymes Other nonspecific abnormal serum enzyme levels History of alcohol abuse Nondependent alcohol abuse, in remission Polysubstance use disorder History of esophagitis documented in this encounter [facility]* Diagnosis Elevated liver enzymes- Primary Other nonspecific abnormal serum enzyme levels History of esophagitis documented in this encounter [facility] note* Diagnosis Elevated liver enzymes- Primary Other nonspecific abnormal serum enzyme levels History of esophagitis documented in this encounter [facility] note* Diagnosis Extraction of tooth needed- Primary History of esophagitis documented in this encounter [facility] note* Diagnosis Extraction of tooth needed- Primary History of esophagitis documented in this encounter [facility]* Diagnosis Onset Date Resolution Status Admit Date Anxiety disorder with panic attacks resolved November 30 1:34am Chronic alcohol abuse resolved Nov 1:34am Depression resolved November 30, 2024 1:34am History of drug abuse resolved Nov 1:34am Tobacco abuse resolved November 1:34am [facility] Work Phone: History and physical note [facility] Medical Records Department [address] [place] [id number] H&P Exam - Hospitalist 10/22/25 0022 MR#: [id number] Acct: [id number] Name: RORO VALDIVIA Rep #:[id number] : 1985 39 From: Lázaro Ortez DO PCP: Care Physician,No Primary Status :ADM IN Location: [facility] [id number] Date of Admission: 11/30/24 Date of Service: 11/30/24 Chief Complaint: Requesting EtOH Detox. HPI Narrative RORO VALDIVIA, is a 39 M with a past medical history of essential hypertension; on metoprolol and clonidine twice daily, chronic tobacco abuse, history of opiate abuse; on methadone 140 mg daily, history of EtOH abuse; with cirrhosis and history of EtOH detox, history of seizure disorder; currentlynot on treatment, history of Tourette syndrome, depression; on venlafaxine and GERD; onpantoprazolewho presents to [facility] ER requesting EtOH detox. Mr. Valdivia reports his symptoms began a few days prior to admission after he missed multiple doses of his mental health medications which caused frequent panic attacks which he states triggered him to start drinking alcohol. He states he has drank ~1/2 gallon of vodka daily for the past 4 days with his last drink at 17:30 hours on the evening of November 29, 2024. He admits to associated nausea and anxiety. In the ER he was noted to have a VENITA of 33.5 mg/dL with UDS positive for methadone and cannabinoids. He was then admitted [facility] medical floor for treatment under the EtOH detox protocol for a state that is expected to extend beyond 2 midnights. [facility] Medical History Anxiety Liver fibrosis Cirrhosis of liver Tourette disease Seizure Home Medications ?Medication ?Instructions ?Recorded ?Last Taken ?Type clonidine HCl 0.1 mg tablet 0.1 mg PO BID anxiety 11/10 03/05 Unknown History hydroxyzine HCl 25 mg tablet 25 mg PO QHS PRN sleep Unknown History melatonin 10 mg capsule 20 mg PO QHS sleep 11/29/24 Unknown History methadone 10 mg tablet 140 mg PO DAILY opiates and 11/29/24 Unknown History alcohol cravings and anxiety metoprolol succinate 50 mg PO DAILY palpitations 11/29/24 Unknown History pantoprazole 20 mg PO BID gerd 11/29/24 U nknown History venlafaxine 75 mg tablet 75 mg PO DAILY anxiety 11/29 Unknown History Allergy/AdvReac Type Severity Reaction Status Date / Time No Known Allergies Allergy Verified 11/29/24 19:54 Social History Smoking Status: Current every day smoker tobacco type: cigarettes ROS ROS Narrative Review of Systems: Constitutional: Patient denies fever or chills. Eyes: Patient denies changes in vision or discharge from eyes. ENT: Patient denies runny nose, sore throat or ear pain. Resp: Patient denies shortness of breath or cough. CV: Patient denies chest pain, palpitations, heart racing or lower extremity edema. GI: Patient admits to nausea but he denies vomiting, abdominal pain, constipation or diarrhea. : Patient denies dysuria or hematuria. MSK: Patient denies arthralgias or myalgias. Skin: Patient denies rash, abscess, wounds or jaundice. Psych: Patient admits to depression with anxiety and panic attacks triggering drinking as per HPI. He denies SI or HI. Neuro: Patient denies headache, paresthesias, hallucinations, seizures or focal neurologic deficits. Allergy: Patient denies lip swelling, tongue swelling or urticaria. Hematology: Patient denies easy bleeding or easy bruisability. Endocrinology: Patient denies polyuria, polydipsia, polyphagia or heat/cold intolerance. 14 point ROS otherwise negative except for positives noted above HPI. Vital Signs Vital Signs Vital Signs: 11/29/24 19:54 11/29/24 21:21 11/29/24 21:21 Temperature 97.2 F L 97.2 F L Temperature Source Temporal Oral Pulse Rate 92 72 70 Respiratory Rate 24 H 16 16 Blood Pressure 125/100 H 145/90 H 145/90 H Blood Pressure Mean 108 108 108 Blood Pressure Source Monitor Blood Pressure Position Semi-Fowlers Blood Pressure Location Right Arm Pulse Ox 100 99 99 Oxygen Delivery Method Room Air Room Air Room Air 11/29/24 22:00 11/29/24 22:46 11/29/24 23:00 Temperature 98.7 F Temperature Source Pulse Rate 78 77 77 Respiratory Rate 16 16 18 Blood Pressure 134/90 H 133/66 H 122/77 H Blood Pressure Mean 104 88 92 Blood Pressure Source Blood Pressure Position Blood Pressure Location Pulse Ox 98 98 97 Oxygen Delivery Method Room Air Room Air 11/30/24 00:00 Temperature Temperature Source Pulse Rate 81 Respiratory Rate 16 Blood Pressure 118/74 Blood Pressure Mean 88 Blood Pressure Source Blood Pressure Position Blood Pressure Location Pulse Ox 98 Oxygen Delivery Method Room Air Weight Weight: 190 lb 0.615 oz Body Mass Index (BMI) 25.0 Physical Exam Const alert, oriented x3, no apparent distress, average body habitus and healthy appearing General Appearance: cooperative HEENT normocephalic, head/scalp atraumatic, hearing grossly normal bilaterally and moist oral mucous membranes Eyes PERRL, EOMs intact bilaterally and conjunctivae normal Neck no lymphadenopathy, supple and no JVD Resp normal respiratory effort, no retractions, no use of accessory muscles and clearto auscultation bilaterally Cardio regular rate and regular rhythm GI normal to inspection, nondistended, normoactive bowel sounds, soft to palpation,non-tender and non-distended Extremity normal to inspection, full ROM and no clubbing, cyanosis or edema Skin Skin Narrative: Patient has evidence of rash, abscess, wounds or jaundice. Neuro oriented x3, CN's II-XII intact bilaterally, moves all extremities and no focal motor deficits Sensorium / Orientation: awake, alert, oriented to person, oriented to place andoriented to time Speech: speech normal Psych affect normal Results Medical Records Data Attestation: I reviewed the patient's medical records Lab / Micro Data Attestation: I reviewed the patient's lab results. 11/29/24 21:19 11/29/24 21:19 Labs: Laboratory Results - last 24 hr 11/29/24 20:14: Urine Opiates Screen NEGATIVE, U Buprenorphine Qual NEGATIVE, UrOxycodone Screen NEGATIVE, Urine Methadone Screen PRESUMPTIVE POSITIVE, Urine Fentanyl Screen NEGATIVE, Ur BarbituratesScreen NEGATIVE, Ur Phencyclidine ScrnNEGATIVE, Ur Amphetamines Screen NEGATIVE, U Benzodiazepines Scrn NEGATIVE, Urine Cocaine Screen NEGATIVE, U Cannabinoids Screen PRESUMPTIVE POSITIVE 11/29/24 21:19: WBC 5.8, RBC 4.14 L, Hgb 12.5 L, Hct 37.0 L, MCV 89.4, MCH 30.2,MCHC 33.8, RDW Std Deviation 45.7 H, RDW Coeff of Jimy 14.1, Plt Count 141 L, MPV10.1, Immature Gran % (Auto) 0.200, Neut % (Auto) 63.3, Lymph % (Auto) 28.2, Pleasants % (Auto) 7.5, Eos % (Auto) 0.5, Baso % (Auto) 0.3, Absolute Neuts (auto) 3.6, Absolute Lymphs (auto) 1.62, Nucleated RBC % 0, PT 19.7 H, INR 1.6, Sodium 138,Potassium 4.7, Chloride 100, Carbon Dioxide 23.8, Anion Gap 14, BUN 2 L, Creatinine 0.55 L, Estim Creat Clear Calc 205.80, Est GFR (MDRD) Non-Af 130, BUN/Creatinine Ratio 4.3 L, Glucose 87, Calcium 9.7, Total Bilirubin 1.48 H, AST 109 H, ALT 33, Alkaline Phosphatase 261 H, Total Protein 8.1, Albumin 3.8, Globulin 4.3 H, Albumin/Globulin Ratio 0.9, Ethyl Alcohol 33.5 H Assessment & Plan Assessment/Plan (1) Chronic alcohol abuse: (2) History of drug abuse: (3) Tobacco abuse: (4) Depression: QUALIFIERS: Depression Type: unspecified Qualified Code(s): F32.A- Depression, unspecified (5) Anxiety disorder with panic attacks: PLAN: Plan 1. Impending EtOH withdrawal in the setting of Chronic EtOH Abuse; with cirrhosis with a VENITA of 33.5 mg/dL present on admission - Admit to general medical floor for treatment under the EtOH detoxification protocol primarily consisting of phenobarbital taper, thiamine, folate and other supportive med ications. EtOH cessation will be strongly encouraged. Finally, we will consult case management see this patient on rounds in the a.m. to help refer himto the [facility] program without appreciated advanced 2. UDS positive for methadone and cannabinoids complicating #1 - Continue methadone to prevent concomitant opiate withdrawal. Cannabis cessation will be strongly encouraged. 3. Tobacco Abuse compounding #1 & #2 - Tobacco Cessation will be strongly encouraged with Nicotine patch offered to control cravings. 4. Depression with anxiety and panic attacks; on venlafaxine - Resume venlafaxine as previous. 5. Essential hypertension; on metoprolol and clonidine twice daily - Maintain home regimen as before. 6. History of seizure disorder; currently not on treatment - Give IV lorazepam prn for breakthroughseizure activity. 7. History of Tourette syndrome - Noted with no evidence of tics or verbal outbursts. 8. GERD; on pantoprazole - Maintain PPI. 9. DVT prophylaxis - Enoxaparin 40 mg sq daily plus up ad cameron. Total time: Approximately (but not less than) 55 minutes. Charges/Coding Visit Charges Inpatient E&M: 27156 Init Hosp L2 11/30/24 0627 Cosigner Signature (if applicable): CC: Dr. Lázaro Brush DO; No Primary Care Physician~ [facility] Author Lázaro Sommer [facility] Note Date/Time November 30, 2024 7 :27am [facility] Medical Records Department [address] [place] [address] H&P Exam - Hospitalist 11/30/24 0022 MR#: [id number] Acct: [id number] Name: RORO VALDIVIA Rep #:[id number] : 1985 39 From: Lázaro Ortez DO PCP: Care Physician,No Primary Status :ADM IN Location: [facility] [id number] - General General Date of Admission: 11/30/24 Date of Service: 11/30/24 Chief Complaint: Requesting EtOH Detox. HPI Narrative RORO VALDIVIA, is a 39 M with a past medical history of essential hypertension; on metoprolol and clonidine twice daily, chronic tobacco abuse, history of opiate abuse; on methadone 140 mg daily, history of EtOH abuse; with cirrhosis and history of EtOH detox, history of seizure disorder; currently not on treatment, history of Tourette syndrome, depression; on venlafaxine and GERD; onpantoprazole who presents to [facility] ER requesting EtOH detox. Mr. Valdivia reports his symptoms began a few days prior to admission after he missed multiple doses of his mental health medications which caused frequent panic attacks which he states triggered him to start drinking alcohol. He states he has drank ~1/2 gallon of vodka daily for the past 4 days with his last drink at 17:30 hours on the evening of November 29, 2024. He admits to associated nausea and anxiety. In the ER he was noted to have a VENITA of 33.5 mg/dL with UDS positive for methadone and cannabinoids. He was then admitted [facility] medical floor for treatment under the EtOH detox protocol for a state that is expected to extend beyond 2 midnights. [facility] Medical History Anxiety Liver fibrosis Cirrhosis of liver Tourette disease Seizure Home Medications ?Medication ?Instructions ?Recorded ?Last Taken ?Type clonidine HCl 0.1 mg tablet 0.1 mg PO BID anxiety 11/10 03/05 Unknown History hydroxyzine HCl 25 mg tablet 25 mg PO QHS PRN sleep Unknown History melatonin 10 mg capsule 20 mg PO QHS sleep 11/29/24 Unknown History methadone 10 mg tablet 140 mg PO DAILY opiates and 11/29/24 Unknown History alcohol cravings and anxiety metoprolol succinate 50 mg PO DAILY palpitations 11/29/24 Unknown History pantoprazole 20 mg PO BID gerd 11/29/24 U nknown History venlafaxine 75 mg tablet 75 mg PO DAILY anxiety 11/29 Unknown History Allergy/AdvReac Type Severity Reaction Status Date / Time No Known Allergies Allergy Verified 11/29/24 19:54 Social History Smoking Status: Current every day smoker tobacco type: cigarettes ROS ROS Narrative Review of Systems: Constitutional: Patient denies fever or chills. Eyes: Patient denies changes in vision or discharge from eyes. ENT: Patient denies runny nose, sore throat or ear pain. Resp: Patient denies shortness of breath or cough. CV: Patient denies chest pain, palpitations, heart racing or lower extremity edema. GI: Patient admits to nausea but he denies vomiting, abdominal pain, constipation or diarrhea. : Patient denies dysuria or hematuria. MSK: Patient denies arthralgias or myalgias. Skin: Patient denies rash, abscess, wounds or jaundice. Psych: Patient admits to depression with anxiety and panic attacks triggering drinking as per HPI. He denies SI or HI. Neuro: Patient denies headache, paresthesias, hallucinations, seizures or focal neurologic deficits. Allergy: Patient denies lip swelling, tongue swelling or urticaria. Hematology: Patient denies easy bleeding or easy bruisability. Endocrinology: Patient denies polyuria, polydipsia, polyphagia or heat/cold intolerance. 14 point ROS otherwise negative except for positives noted above HPI. Vital Signs Vital Signs Vital Signs: 11/29/24 19:54 11/29/24 21:21 11/29/24 21:21 Temperature 97.2 F L 97.2 F L Temperature Source Temporal Oral Pulse Rate 92 72 70 Respiratory Rate 24 H 16 16 Blood Pressure 125/100 H 145/90 H 145/90 H Blood Pressure Mean 108 108 108 Blood Pressure Source Monitor Blood Pressure Position Semi-Fowlers Blood Pressure Location Right Arm Pulse Ox 100 99 99 Oxygen Delivery Method Room Air Room Air Room Air 11/29/24 22:00 11/29/24 22:46 11/29/24 23:00 Temperature 98.7 F Temperature Source Pulse Rate 78 77 77 Respiratory Rate 16 16 18 Blood Pressure 134/90 H 133/66 H 122/77 H Blood Pressure Mean 104 88 92 Blood Pressure Source Blood Pressure Position Blood Pressure Location Pulse Ox 98 98 97 Oxygen Delivery Method Room Air Room Air 11/30/24 00:00 Temperature Temperature Source Pulse Rate 81 Respiratory Rate 16 Blood Pressure 118/74 Blood Pressure Mean 88 Blood Pressure Source Blood Pressure Position Blood Pressure Location Pulse Ox 98 Oxygen Delivery Method Room Air Weight Weight: 190 lb 0.615 oz Body Mass Index (BMI) 25.0 Physical Exam Const alert, oriented x3, no apparent distress, average body habitus and healthy appearing General Appearance: cooperative HEENT normocephalic, head/scalp atraumatic, hearing grossly normal bilaterally and moist oral mucous membranes Eyes PERRL, EOMs intact bilaterally and conjunctivae normal Neck no lymphadenopathy, supple and no JVD Resp normal respiratory effort, no retractions, no use of accessory muscles and clearto auscultation bilaterally Cardio regular rate and regular rhythm GI normal to inspection, nondistended, normoactive bowel sounds, soft to palpation,non-tender and non-distended Extremity normal to inspection, full ROM and no clubbing, cyanosis or edema Skin Skin Narrative: Patient has evidence of rash, abscess, wounds or jaundice. Neuro oriented x3, CN's II-XII intact bilaterally, moves all extremities and no focal motor deficits Sensorium / Orientation: awake, alert, oriented to person, oriented to place andoriented to time Speech: speech normal Psych affect normal Results Medical Records Data Attestation: I reviewed the patient's medical records Lab / Micro Data Attestation: I reviewed the patient's lab results. 11/29/24 21:19 11/29/24 21:19 Labs: Laboratory Results - last 24 hr 11/29/24 20:14: Urine Opiates Screen NEGATIVE, U Buprenorphine Qual NEGATIVE, UrOxycodone Screen NEGATIVE, Urine Methadone Screen PRESUMPTIVE POSITIVE, Urine Fentanyl Screen NEGATIVE, Ur Barbiturates Screen NEGATIVE, Ur Phencyclidine ScrnNEGATIVE, Ur Amphetamines Screen NEGATIVE, U Benzodiazepines Scrn NEGATIVE, Urine Cocaine Screen NEGATIVE, U Cannabinoids Screen PRESUMPTIVE POSITIVE 11/29/24 21:19: WBC 5.8, RBC 4.14 L, Hgb 12.5 L, Hct 37.0 L, MCV 89.4, MCH 30.2,MCHC 33.8, RDW Std Deviation 45.7 H, RDW Coeff of Jimy 14.1, Plt Count 141 L, MPV10.1, Immature Gran % (Auto) 0.200, Neut % (Auto) 63.3, Lymph % (Auto) 28.2, Pleasants % (Auto) 7.5, Eos % (Auto) 0.5, Baso % (Auto) 0.3, Absolute Neuts (auto) 3.6, Absolute Lymphs (auto) 1.62, Nucleated RBC % 0, PT 19.7 H, INR 1.6, Sodium 138, Potassium 4.7, Chloride 100, Carbon Dioxide 23.8, Anion Gap 14, BUN 2 L, Creatinine 0.55 L, Estim Creat Clear Calc 205.80, Est GFR (MDRD) Non-Af 130, BUN/Creatinine Ratio 4.3 L, Glucose 87, Calcium 9.7, Total Bilirubin 1.48 H, AST 109 H, ALT 33, Alkaline Phosphatase 261 H, Total Protein 8.1, Albumin 3.8, Globulin 4.3 H, Albumin/Globulin Ratio 0.9, Ethyl Alcohol 33.5 H Assessment & Plan Assessment/Plan (1) Chronic alcohol abuse: (2) History of drug abuse: (3) Tobacco abuse: (4) Depression: QUALIFIERS: Depression Type: unspecified Qualified Code(s): F32.A- Depression, unspecified (5) Anxiety disorder with panic attacks: PLAN: Plan 1. Impending EtOH withdrawal in the setting of Chronic EtOH Abuse; with cirrhosis with a VENITA of 33.5 mg/dL present on admission - Admit to general medical floor for treatment under the EtOH detoxification protocol primarily consisting of phenobarbital taper, thiamine, folate and other supportive medications. EtOH cessation will be strongly encouraged. Finally, we will consult case management see this patient on rounds in the a.m. to help refer himto the [facility] program without appreciated advanced 2. UDS positive for methadone and cannabinoids complicating #1 - Continue methadone to prevent concomitant opiate withdrawal. Cannabis cessation will be strongly encouraged. 3. Tobacco Abuse compounding #1 & #2 - Tobacco Cessation will be strongly encouraged with Nicotine patch offered to control cravings. 4. Depression with anxiety and panic attacks; on venlafaxine - Resume venlafaxine as previous. 5. Essential hypertension; on metoprolol and clonidine twice daily - Maintain home regimen as before. 6. History of seizure disorder; currently not on treatment - Give IV lorazepam prn for breakthrough seizure activity. 7. History of Tourette syndrome - Noted with no evidence of tics or verbal outbursts. 8. GERD; on pantoprazole - Maintain PPI. 9. DVT prophylaxis - Enoxaparin 40 mg sq daily plus up ad cameron. Total time: Approximately (but not less than) 55 minutes. Charges/Coding Visit Charges Inpatient E&M: 40889 Init Hosp L2 11/30/24626 <Electronically signed by Lázaro Brush DO> Cosigner Signature (if applicable): CC: Dr. Lázaro Brush, ; No Primary Care Physician~ Signed [facility] Work Phone: Hospital Discharge instructions* Attachments The following attachments cannot be sent through Care Everywhere. * Chest Pain Discharge Instructions ([place]) * Panic Attack ED ([place]) documented in this [facility] Discharge instructions* Attachments The following attachments cannot be sent through Care Everywhere. * Gout Discharge Instructions ([place]) * Lifestyle Changes to Manage Gout ([place]) documented in this [facility] Discharge instructions* Attachments The following attachments cannot be sent through Care Everywhere. * Alcohol Use Disorder ED ([place]) documented in this [facility] Discharge instructions* Attachments The following attachments cannot be sent through Care Everywhere. * Pancreatitis Discharge Instructions ([place]) * Severe Abdominal Pain Discharge Instructions, Adult ([place]) documented in this [facility] Discharge instructions* Attachments The following attachments cannot be sent through Care Everywhere. * Chronic Pancreatitis Discharge Instructions ([place]) * Alcohol Use Disorder ED ([place]) documented in this [facility] Discharge instructions* Attachments The following attachments cannot be sent through Care Everywhere. * Pancreatitis ([place]) * Alcohol Use Disorder ED ([place]) documented in this [facility] Discharge instructions* Attachments The following attachments cannot be sent through Care Everywhere. * Pancreatitis Discharge Instructions ([place]) documented in this [facility] Discharge instructions* Attachments The following attachments cannot be sent through Care Everywhere. * Abdominal Pain, Adult ED ([place]) documented in this [facility] Discharge instructions* Attachments The following attachments cannot be sent through Care Everywhere. * Chronic Pancreatitis Discharge Instructions ([place]) * Severe Abdominal Pain Discharge Instructions, Adult ([place]) documented in this [facility] Discharge instructions* Attachments The following attachments cannot be sent through Care Everywhere. * Upper GI Endoscopy Discharge Instructions ([place]) * Esophageal Varices ([place]) [facility] Medical Records Department [address] [place] [address] Progress Note - Hospitalist 11/30/24 0745 MR#: [id number] Acct: [id number] Name: RORO VALDIVIA Rep #:[id number] : 1985 39 From: Joe Mcmillan DO PCP: Care Physician,No Primary Status :ADM IN Location: [place] [address] Reason for Visit Chief Complaint: Requesting EtOH Detox. Subjective Subjective Feeling terror. Objective Data Objective Data Vital Signs: Vital Signs Temp Pulse Resp BP Pulse Ox O2 Del Method 36.6 C 71 18 121/79 H 98 Room Air 11/30/24 05:47 11/30/24 05:47 11/30/24 05:47 11/30/24 05:47 11/30/24 05:47 11/30/24 05:47 Oxygen Delivery Method Room Air Weight: 84.323 kg Body Mass Index (BMI) 24.5 Intake & Output: Intake and Output for Last 24 Hours 11/28/24 11/29/24 11/30/24 23:59 23:59 23:59 Intake Total 1000 / 1000 440 / 440 Balance 1000 / 1000 440 / 440 Lab / Micro Data 11/29/24 21:19 11/29/24 21:19 Labs: Laboratory Results - last 24 hr 11/29/24 20:14: Urine Opiates Screen NEGATIVE, U Buprenorphine Qual NEGATIVE, UrOxycodone Screen NEGATIVE, Urine Methadone Screen PRESUMPTIVE POSITIVE, Urine Fentanyl Screen NEGATIVE, Ur BarbituratesScreen NEGATIVE, Ur Phencyclidine ScrnNEGATIVE, Ur Amphetamines Screen NEGATIVE, U Benzodiazepines Scrn NEGATIVE, Urine Cocaine Screen NEGATIVE, U Cannabinoids Screen PRESUMPTIVE POSITIVE 11/29/24 21:19: WBC 5.8, RBC 4.14 L, Hgb 12.5 L, Hct 37.0 L, MCV 89.4, MCH 30.2,MCHC 33.8, RDW Std Deviation 45.7 H, RDW Coeff of Jimy 14.1, Plt Count 141 L, MPV10.1, Immature Gran % (Auto) 0.200, Neut % (Auto) 63.3, Lymph % (Auto) 28.2, Pleasants % (Auto) 7.5, Eos % (Auto) 0.5, Baso % (Auto) 0.3, Absolute Neuts (auto) 3.6, Absolute Lymphs (auto) 1.62, Nucleated RBC % 0, PT 19.7 H, INR 1.6, Sodium 138,Potassium 4.7, Chloride 100, Carbon Dioxide 23.8, Anion Gap 14, BUN 2 L, Creatinine 0.55 L, Estim Creat Clear Calc 205.80, Est GFR (MDRD) Non-Af 130, BUN/Creatinine Ratio 4.3 L, Glucose 87, Calcium 9.7, Total Bilirubin 1.48 H, AST 109 H, ALT 33, Alkaline Phosphatase 261 H, Total Protein 8.1, Albumin 3.8, Globulin 4.3 H, Albumin/Globulin Ratio 0.9, Ethyl Alcohol 33.5 H Physical Exam Const alert and no apparent distress HEENT head/scalp atraumatic and moist oral mucous membranes Resp normal respiratory effort, no retractions, no use of accessory muscles and clearto auscultation bilaterally Cardio regular rate, regular rhythm, S1 normal heart sound and S2 normal heart sound GI normal to inspection, nondistended, normoactive bowel sounds, soft to palpation,non-tender and non-distended Extremity normal to inspection and full ROM Neuro Sensorium / Orientation: awake and alert Assessment & Plan Assessment/Plan (1) Chronic alcohol abuse: (2) History of drug abuse: (3) Tobacco abuse: (4) Depression: QUALIFIERS: Depression Type: unspecified Qualified Code(s): F32.A- Depression, unspecified (5) Anxiety disorder with panic attacks: PLAN: Plan Alcohol withdrawal * on phenobarbital taper * thiamine and folate * addiction medicine to see UDS positive for methadone and cannabinoids complicating sobriety Chronic medical conditions: * Tobacco Abuse compounding. Tobacco Cessation will be strongly encouraged with Nicotine patch offered to control cravings. * Depression with anxiety and panic attacks; on venlafaxine. Recommend he follow up * Essential hypertension; on metoprolol and clonidine twice daily - Maintain home regimen as before. * History of seizure disorder; currently not on treatment - Give IV lorazepam prn for breakthrough seizure activity. * History of Tourette syndrome - Noted with no evidence of tics or verbal outbursts. * GERD; on pantoprazole - Maintain PPI. * Cirrhosis: told he has cirrhosis by his GI physicians in [place]. Advised ongoing discontinuation of alcohol. DVT prophylaxis - Enoxaparin 40 mg sq daily plus up ad caemron. Greater than 35 minutes of which greater than 50% of the time was spent at bedside discussing with him about his depression/anxiety, treatment plan for alcohol withdrawal. Charges/Coding Visit Charges Inpatient E&M: 23155 Subs Hosp L2 11/30/24 1406 Cosigner Signature (if applicable): CC: ~ [facility]igned [facility] Medical Records Department [address] [place] [address] Progress Note - Hospitalist 12/01/24 0800 MR#: [id number] Acct: [id number] Name: RORO VALDIVIA Rep #:[id number] : 1985 39 From: Joe Mcmillan DO PCP: Care Physician,No Primary Status :ADM IN Location: [facility] [id number] Reason for Visit Chief Complaint: Requesting EtOH Detox. Subjective Subjective Feeling better. Endorses that he had been having n/v for several days, unable totake medications, then drank heavily for 2 days. Today feels better, has been eating. Objective Data Objective Data Vital Signs: Vital Signs Temp Pulse Resp BP Pulse Ox O2 Del Method 36.3 C L 55 L 16 110/64 99 Room Air 12/01/24 02:15 12/01/24 02:15 12/01/24 02:15 12/01/24 02:15 12/01/24 02:15 12/01/24 02:15 Oxygen Delivery Method Room Air Weight: 84.323 kg Body Mass Index (BMI) 24.5 Intake & Output: Intake and Output for Last 24 Hours 11/29/24 11/30/24 12/01/24 23:59 23:59 23:59 Intake Total 1000 / 1000 1890 / 1890 Balance 1000 / 1000 189 / 189 Lab / Micro Data 11/29/24 21:19 11/29/24 21:19 Physical Exam Const alert and no apparent distress Constitutional Narrative: up in bed. comfortable. nontoxic. afebrile. Extremity normal to inspection Neuro Sensorium / Orientation: awake and alert Assessment & Plan Assessment/Plan (1) Chronic alcohol abuse: (2) History of drug abuse: (3) Tobacco abuse: (4) Depression: QUALIFIERS: Depression Type: unspecified Qualified Code(s): F32.A- Depression, unspecified (5) Anxiety disorder with panic attacks: PLAN: Plan Alcohol withdrawal * on phenobarbital taper * thiamine and folate * uncomplicated. Per patient, had only been drinking heavily for 2 days. He will follow up with [facility] for further IOP. UDS positive for methadone and cannabinoids complicating sobriety Chronic medical conditions: * Tobacco Abuse compounding. Tobacco Cessation will be strongly encouraged with Nicotine patch offered to control cravings. * Depression with anxiety and panic attacks; on venlafaxine. Recommend he follow up * Essential hypertension; on metoprolol and clonidine twice daily - Maintain home regimen as before. * History of seizure disorder; currently not on treatment - Give IV lorazepam prn for breakthrough seizure activity. * History of Tourette syndrome - Noted with no evidence of tics or verbal outbursts. * GERD; on pantoprazole - Maintain PPI. * Cirrhosis: told he has cirrhosis by his GI physicians in [place]. Advised ongoing discontinuation of alcohol. DVT prophylaxis - Enoxaparin 40 mg sq daily plus up ad cameron. 12/01/24 9301 Cosigner Signature (if applicable): CC: ~ [facility]igned [facility] Joe Mcmillan [facility] Note Date/Time November 30, 2024 3 :06pm [facility] Medical Records Department [address] [place] [address] Progress Note - Hospitalist 11/30/24 0745 MR#: [id number] Acct: [id number] Name: RORO VALDIVIA Rep #:[id number] : 1985 39 From: Joe Mcmillan DO PCP: Care Physician,No Primary Status :ADM IN Location: [facility] [id number] Reason for Visit Chief Complaint: Requesting EtOH Detox. Subjective Subjective Feeling terror. Objective Data Objective Data Vital Signs: Vital Signs Temp Pulse Resp BP Pulse Ox O2 Del Method 36.6 C 71 18 121/79 H 98 Room Air 11/30/24 05:47 11/30/24 05:47 11/30/24 05:47 11/30/24 05:47 11/30/24 05:47 11/30/24 05:47 Oxygen Delivery Method Room Air Weight: 84.323 kg Body Mass Index (BMI) 24.5 Intake & Output: Intake and Output for Last 24 Hours 11/28/24 11/29/24 11/30/24 23:59 23:59 23:59 Intake Total 1000 / 1000 440 / 440 Balance 1000 / 1000 440 / 440 Lab / Micro Data 11/29/24 21:19 11/29/24 21:19 Labs: Laboratory Results - last 24 hr 11/29/24 20:14: Urine Opiates Screen NEGATIVE, U Buprenorphine Qual NEGATIVE, UrOxycodone Screen NEGATIVE, Urine Methadone Screen PRESUMPTIVE POSITIVE, Urine Fentanyl Screen NEGATIVE, Ur Barbiturates Screen NEGATIVE, Ur Phencyclidine ScrnNEGATIVE, Ur Amphetamines Screen NEGATIVE, U Benzodiazepines Scrn NEGATIVE, Urine Cocaine Screen NEGATIVE, U Cannabinoids Screen PRESUMPTIVE POSITIVE 11/29/24 21:19: WBC 5.8, RBC 4.14 L, Hgb 12.5 L, Hct 37.0 L, MCV 89.4, MCH 30.2,MCHC 33.8, RDW Std Deviation 45.7 H, RDW Coeff of Jiym 14.1, Plt Count 141 L, MPV10.1, Immature Gran % (Auto) 0.200, Neut % (Auto) 63.3, Lymph % (Auto) 28.2, Pleasants % (Auto) 7.5, Eos % (Auto) 0.5, Baso % (Auto) 0.3, Absolute Neuts (auto) 3.6, Absolute Lymphs (auto) 1.62, Nucleated RBC % 0, PT 19.7 H, INR 1.6, Sodium 138, Potassium 4.7, Chloride 100, Carbon Dioxide 23.8, Anion Gap 14, BUN 2 L, Creatinine 0.55 L, Estim Creat Clear Calc 205.80, Est GFR (MDRD) Non-Af 130, BUN/Creatinine Ratio 4.3 L, Glucose 87, Calcium 9.7, Total Bilirubin 1.48 H, AST 109 H, ALT 33, Alkaline Phosphatase 261 H, Total Protein 8.1, Albumin 3.8, Globulin 4.3 H, Albumin/Globulin Ratio 0.9, Ethyl Alcohol 33.5 H Physical Exam Const alert and no apparent distress HEENT head/scalp atraumatic and moist oral mucous membranes Resp normal respiratory effort, no retractions, no use of accessory muscles and clearto auscultation bilaterally Cardio regular rate, regular rhythm, S1 normal heart sound and S2 normal heart sound GI normal to inspection, nondistended, normoactive bowel sounds, soft to palpation,non-tender and non-distended Extremity normal to inspection and full ROM Neuro Sensorium / Orientation: awake and alert Assessment & Plan Assessment/Plan (1) Chronic alcohol abuse: (2) History of drug abuse: (3) Tobacco abuse: (4) Depression: QUALIFIERS: Depression Type: unspecified Qualified Code(s): F32.A- Depression, unspecified (5) Anxiety disorder with panic attacks: PLAN: Plan Alcohol withdrawal * on phenobarbital taper * thiamine and folate * addiction medicine to see UDS positive for methadone and cannabinoids complicating sobriety Chronic medical conditions: * Tobacco Abuse compounding. Tobacco Cessation will be strongly encouraged with Nicotine patch offered to control cravings. * Depression with anxiety and panic attacks; on venlafaxine. Recommend he follow up * Essential hypertension; on metoprolol and clonidine twice daily - Maintain home regimen as before. * History of seizure disorder; currently not on treatment - Give IV lorazepam prn for breakthrough seizure activity. * History of Tourette syndrome - Noted with no evidence of tics or verbal outbursts. * GERD; on pantoprazole - Maintain PPI. * Cirrhosis: told he has cirrhosis by his GI physicians in [place]. Advised ongoing discontinuation of alcohol. DVT prophylaxis - Enoxaparin 40 mg sq daily plus up ad cameron. Greater than 35 minutes of which greater than 50% of the time was spent at bedside discussing with him about his depression/anxiety, treatment plan for alcohol withdrawal. Charges/Coding Visit Charges Inpatient E&M: 02037 Subs Hosp L2 11/30/24 1406 <Electronically signed by Joe Mcmillan DO> Cosigner Signature (if applicable): CC: ~ Signed [facility] Work Phone: Progress note Author Joe Mcmillan [facility] Note Date/Time December 01, 2024 1 0:59am [facility] Medical Records Department [address] [place] [address] Progress Note - Hospitalist 12/01/24 0800 MR#: [id number] Acct: [id number] Name: RORO VALDIVIA Rep #:[id number] : 1985 39 From: Joe Mcmillan DO PCP: Care Physician,No Primary Status :ADM IN Location: [place] [address] Reason for Visit Chief Complaint: Requesting EtOH Detox. Subjective Subjective Feeling better. Endorses that he had been having n/v for several days, unable totake medications, then drank heavily for 2 days. Today feels better, has been eating. Objective Data Objective Data Vital Signs: Vital Signs Temp Pulse Resp BP Pulse Ox O2 Del Method 36.3 C L 55 L 16 110/64 99 Room Air 12/01/24 02:15 12/01/24 02:15 12/01/24 02:15 12/01/24 02:15 12/01/24 02:15 12/01/24 02:15 Oxygen Delivery Method Room Air Weight: 84.323 kg Body Mass Index (BMI) 24.5 Intake & Output: Intake and Output for Last 24 Hours 11/29/24 11/30/24 12/01/24 23:59 23:59 23:59 Intake Total 1000 / 1000 1890 / 1890 Balance 1000 / 1000 1890 / 1890 Lab / Micro Data 11/29/24 21:19 11/29/24 21:19 Physical Exam Const alert and no apparent distress Constitutional Narrative: up in bed. comfortable. nontoxic. afebrile. Extremity normal to inspection Neuro Sensorium / Orientation: awake and alert Assessment & Plan Assessment/Plan (1) Chronic alcohol abuse: (2) History of drug abuse: (3) Tobacco abuse: (4) Depression: QUALIFIERS: Depression Type: unspecified Qualified Code(s): F32.A- Depression, unspecified (5) Anxiety disorder with panic attacks: PLAN: Plan Alcohol withdrawal * on phenobarbital taper * thiamine and folate * uncomplicated. Per patient, had only been drinking heavily for 2 days. He will follow up with [facility] for further IOP. UDS positive for methadone and cannabinoids complicating sobriety Chronic medical conditions: * Tobacco Abuse compounding. Tobacco Cessation will be strongly encouraged with Nicotine patch offered to control cravings. * Depression with anxiety and panic attacks; on venlafaxine. Recommend he follow up * Essential hypertension; on metoprolol and clonidine twice daily - Maintain home regimen as before. * History of seizure disorder; currently not on treatment - Give IV lorazepam prn for breakthrough seizure activity. * History of Tourette syndrome - Noted with no evidence of tics or verbal outbursts. * GERD; on pantoprazole - Maintain PPI. * Cirrhosis: told he has cirrhosis by his GI physicians in [place]. Advised ongoing discontinuation of alcohol. DVT prophylaxis - Enoxaparin 40 mg sq daily plus up ad cameron. 12/01/24 0959 <Electronically signed by Joe Mcmillan DO> Cosigner Signature (if applicable): CC: ~ Signed [facility] Work Phone: Reason for referral (narrative)* Consultation (Routine) - Pending Review Specialty Diagnoses / Procedures Referred By Jose Angel barroso Referred To Contact Psychiatry / Behavioral Health Diagnoses Anxiety attack Procedures ME OFFICE/OUTPATIENT [facility] 60-74 MINUTES Blayne Duran, CARDIOTHORACIC ICU RN - [employer]ACHINE [address] [place] [address] [facility] [address] [address] Referral ID Status Reason Start Date Expiration Date Visits Requested Visits Authorized [id number] Pending Review Specialty Services Required 05/02/2022 05/02/2023 [facility] Consultation (Routine) - Pending Review Specialty Diagnoses / Procedures Referred By Contac t Referred To Contact Infectious Diseases Diagnoses Positive 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 Procedures ME OFFICE/OUTPATIENT NEW HIGH MDM 60-74 MINUTES Payne, Tania, DO [address] [place] [address] [facility] [address] [place] [address] Referral ID Status Reason Start Date Expiration Date Visits Requested Visits Authorized [id number] Pending Review Specialty Services Required 12/16/2022 12/16/2023 1 [facility]No reason for referral information availableWUniversity Hospitals St[facility] Work Phone: Reason for visit Narrative* Imaging (Routine) - Closed Specialty Diagnoses / Procedures Referred By Contac t Referred To Contact Radiology Diagnoses Acute on chronic pancreatitis (CMS/HCC) (HCC) Procedures MR abdomen w and wo Seema Gillis APRN - CNP [address] [place] [address] Phone: tel: fax: Referral ID Status Reason Start Date Expiration Date Visits Re quested Visits Authorized [id number] Closed 06/01/2024 06/01/2025 1 1 [facility] Narrative* Auth/Cert (Routine) Specialty Diagnoses / Procedures Referred By Contac t Referred To Contact Diagnoses History of esophagitis Procedures ME EGD TRANSORAL BIOPSY SINGLE/MULTIPLE ESOPHAGOGASTRODUODENOSCOPY, WITH BIOPSY Sonya Cramer MD [address] [place] [address] Phone: tel: fax: Referral ID Status Reason Start Date Expiration Date Visits Re quested Visits Authorized [id number] 11/01/2024 1 1 [facility] Health Summary Purpose Family History No Family History Records FoundNo Family History Records FoundNo Family History Records FoundNo Family History Records FoundNo Family History Records FoundNo Family History Records FoundNo Family History Records FoundNo Family History Records FoundNo Family History Records FoundNo Family History Records Found Advance Directives Documents on File Type Date Recorded Patient Redye Hand Expl anation Advance Directives and Living [employer] Latest Code Status on File Code Status Date Activated Date Inactivated Comments Full Code 06/06/2018 10:44 AM 06/08/2018 4:33 PM Full Code 06/06/2018 9:13 AM 06/06/2018 10:44 AM Full Code 03/29/2018 7:11 AM 03/30/2018 2:44 PM Latest Code Status on File Code Status Date Activated Date Inactivated Comments Full Code 03/15/2022 10:30 PM 03/19/2022 4:42 PM Latest Code Status on File Code Status Date Activated Date Inactivated Comments Full Code 03/15/2022 10:30 PM 03/19/2022 4:42 PM Latest Code Status on File Code Status Date Activated Date Inactivated Comments Full Code 07/11/2022 3:13 AM 07/11/2022 8:01 AM Code Status History Code Status Date Activated Date Inactivated Comments Full Code 06/27/2022 12:33 AM 06/29/2022 1:00 PM Full Code 03/15/2022 10:30 PM 03/19/2022 4:42 PM Latest Code Status on File Code Status Date Activated Date Inactivated Comments Full Code 11/04/2022 2:38 AM 11/08/2022 4:38 PM Code Status History Code Status Date Activated Date Inactivated Comments Full Code 07/11/2022 3:13 AM 07/11/2022 8:01 AM Full Code 06/27/2022 12:33 AM 06/29/2022 1:00 PM Full Code 03/15/2022 10:30 PM 03/19/2022 4:42 PM Latest Code Status on File Code Status Date Activated Date Inactivated Comments Full Code 11/04/2022 2:38 AM 11/08/2022 4:38 PM Code Status History Code Status Date Activated Date Inactivated Comments Full Code 07/11/2022 3:13 AM 07/11/2022 8:01 AM Full Code 06/27/2022 12:33 AM 06/29/2022 1:00 PM Full Code 03/15/2022 10:30 PM 03/19/2022 4:42 PM Latest Code Status on File Code Status Date Activated Date Inactivated Comments Full Code 06/24/2023 10:49 PM 06/28/2023 3:16 PM Code Status History Code Status Date Activated Date Inactivated Comments Full Code 11/04/2022 2:38 AM 11/08/2022 4:38 PM Full Code 07/11/2022 3:13 AM 07/11/2022 8:01 AM Full Code 06/27/2022 12:33 AM 06/29/2022 1:00 PM Full Code 03/15/2022 10:30 PM 03/19/2022 4:42 PM Date Activated Date Inactivated Comments 06/24/2023 10:49 PM 06/28/2023 3:16 PM Date Activated Date Inactivated Comments 11/04/2022 2:38 AM 11/08/2022 4:38 PM Date Activated Date Inactivated Comments 07/11/2022 3:13 AM 07/11/2022 8:01 AM Date Activated Date Inactivated Comments 06/27/2022 12:33 AM 06/29/2022 1:00 PM Date Activated Date Inactivated Comments 03/15/2022 10:30 PM 03/19/2022 4:42 PM Date Activated Date Inactivated Comments 10/16/2023 3:25 PM 10/18/2023 4:46 PM Date Activated Date Inactivated Comments 06/24/2023 10:49 PM 06/28/2023 3:16 PM Date Activated Date Inactivated Comments 11/04/2022 2:38 AM 11/08/2022 4:38 PM Date Activated Date Inactivated Comments 07/11/2022 3:13 AM 07/11/2022 8:01 AM Date Activated Date Inactivated Comments 06/27/2022 12:33 AM 06/29/2022 1:00 PM Date Activated Date Inactivated Comments 11/18/2023 4:31 AM 11/28/2023 5:48 PM Date Activated Date Inactivated Comments 10/16/2023 3:25 PM 10/18/2023 4:46 PM Date Activated Date Inactivated Comments 06/24/2023 10:49 PM 06/28/2023 3:16 PM Date Activated Date Inactivated Comments 11/04/2022 2:38 AM 11/08/2022 4:38 PM Date Activated Date Inactivated Comments 07/11/2022 3:13 AM 07/11/2022 8:01 AM Date Activated Date Inactivated Comments 12/14/2023 4:54 AM 12/17/2023 4:09 PM Date Activated Date Inactivated Comments 11/18/2023 4:31 AM 11/28/2023 5:48 PM Date Activated Date Inactivated Comments 10/16/2023 3:25 PM 10/18/2023 4:46 PM Date Activated Date Inactivated Comments 06/24/2023 10:49 PM 06/28/2023 3:16 PM Date Activated Date Inactivated Comments 11/04/2022 2:38 AM 11/08/2022 4:38 PM Healthcare Agents on File Name Relationship Healthcare Agent Relationshi p Communication Summer Valdivia Mother Health Care Agent Healthcare Agents on File Name Relationship Healthcare Agent Relationshi p Communication Summer Shin Health Care Agent Date Activated Date Inactivated Comments 01/20/2024 7:00 PM 01/26/2024 6:58 PM Date Activated Date Inactivated Comments 12/14/2023 4:54 AM 12/17/2023 4:09 PM Date Activated Date Inactivated Comments 11/18/2023 4:31 AM 11/28/2023 5:48 PM Date Activated Date Inactivated Comments 10/16/2023 3:25 PM 10/18/2023 4:46 PM Date Activated Date Inactivated Comments 06/24/2023 10:49 PM 06/28/2023 3:16 PM Healthcare Agents on File Name Relationship Healthcare Agent Relationshi p Communication Summer Valdivia Mother Health Care Agent Healthcare Agents on File Name Relationship Healthcare Agent Relationshi p Communication Smumer Valdivia Mother Health Care Agent Date Activated Date Inactivated Comments 02/05/2024 3:05 AM 02/08/2024 4:01 PM Date Activated Date Inactivated Comments 01/20/2024 7:00 PM 01/26/2024 6:58 PM Date Activated Date Inactivated Comments 12/14/2023 4:54 AM 12/17/2023 4:09 PM Date Activated Date Inactivated Comments 11/18/2023 4:31 AM 11/28/2023 5:48 PM Date Activated Date Inactivated Comments 10/16/2023 3:25 PM 10/18/2023 4:46 PM Healthcare Agents on File Name Relationship Healthcare Agent Relationshi p Communication Summer Shin Health Care Agent Healthcare Agents on File Name Relationship Healthcare Agent Relationshi p Communication Summer Shin Health Care Agent Healthcare Agents on File Name Relationship Healthcare Agent Relationshi p Communication Summer Shin Health Care Agent Healthcare Agents on File Name Relationship Healthcare Agent Relationshi p Communication Sumemr Shin Health Care Agent Healthcare Agents on File Name Relationship Healthcare Agent Relationshi p Communication Summer Shin Health Care Agent Date Activated Date Inactivated Comments 04/16/2024 9:03 PM 04/20/2024 5:13 PM Date Activated Date Inactivated Comments 02/05/2024 3:05 AM 02/08/2024 4:01 PM Date Activated Date Inactivated Comments 01/20/2024 7:00 PM 01/26/2024 6:58 PM Date Activated Date Inactivated Comments 12/14/2023 4:54 AM 12/17/2023 4:09 PM Date Activated Date Inactivated Comments 11/18/2023 4:31 AM 11/28/2023 5:48 PM Healthcare Agents on File Name Relationship Healthcare Agent Relationshi p Communication Summer Valdivia Mother Health Care Agent Healthcare Agents on File Name Relationship Healthcare Agent Relationshi p Communication Summer Shin Health Care Agent Healthcare Agents on File Name Relationship Healthcare Agent Relationshi p Communication Summer Valdivia Mother Health Care Agent Healthcare Agents on File Name Relationship Healthcare Agent Relationshi p Communication Summer Valdivia Mother Health Care Agent Healthcare Agents on File Name Relationship Healthcare Agent Relationshi p Communication Summer Valdivia Mother Health Care Agent Healthcare Agents on File Name Relationship Healthcare Agent Relationshi p Communication Summer Shin Health Care Agent Date Activated Date Inactivated Comments 04/16/2024 9:03 PM 04/20/2024 5:13 PM Date Activated Date Inactivated Comments 02/05/2024 3:05 AM 02/08/2024 4:01 PM Date Activated Date Inactivated Comments 01/20/2024 7:00 PM 01/26/2024 6:58 PM Date Activated Date Inactivated Comments 12/14/2023 4:54 AM 12/17/2023 4:09 PM Date Activated Date Inactivated Comments 11/18/2023 4:31 AM 11/28/2023 5:48 PM Healthcare Agents on File Name Relationship Healthcare Agent Relationshi p Communication Summer Valdivia Mother Health Care Agent Healthcare Agents on File Name Relationship Healthcare Agent Relationshi p Communication Summer Valdivia Mother Health Care Agent Healthcare Agents on File Name Relationship Healthcare Agent Relationshi p Communication Summer Valdivia Mother Health Care Agent Healthcare Agents on File Name Relationship Healthcare Agent Relationshi p Communication Summer Valdivia Mother Health Care Agent Healthcare Agents on File Name Relationship Healthcare Agent Relationshi p Communication Summer Valdivia Mother Health Care Agent Healthcare Agents on File Name Relationship Healthcare Agent Relationshi p Communication Summer Valdivia Mother Health Care Agent Healthcare Agents on File Name Relationship Healthcare Agent Relationshi p Communication Summer Valdivia Mother Health Care Agent Healthcare Agents on File Name Relationship Healthcare Agent Relationshi p Communication Summer Valdivia Mother Health Care Agent Healthcare Agents on File Name Relationship Healthcare Agent Relationshi p Communication Summer Valdivia Mother Health Care Agent Healthcare Agents on File Name Relationship Healthcare Agent Relationshi p Communication Summer Valdivia Mother Health Care Agent Healthcare Agents on File Name Relationship Healthcare Agent Relationshi p Communication Summer Valdivia Mother Health Care Agent Healthcare Agents on File Name Relationship Healthcare Agent Relationshi p Communication Summer Valdivia Mother Health Care Agent Healthcare Agents on File Name Relationship Healthcare Agent Relationshi p Communication Summer Valdivia Mother Health Care Agent Healthcare Agents on File Name Relationship Healthcare Agent Relationshi p Communication Summer Valdivia Mother Health Care Agent Healthcare Agents on File Name Relationship Healthcare Agent Relationshi p Communication Summer Valdivia Mother Health Care Agent Healthcare Agents on File Name Relationship Healthcare Agent Relationshi p Communication Summer Shin Health Care Agent Healthcare Agents on File Name Relationship Healthcare Agent Relationshi p Communication Summer Shin Health Care Agent Healthcare Agents on File Name Relationship Healthcare Agent Relationshi p Communication Summer Shin Health Care Agent Healthcare Agents on File Name Relationship Healthcare Agent Relationshi p Communication Summer Valdivia Mother Health Care Agent Healthcare Agents on File Name Relationship Healthcare Agent Relationshi p Communication Summer Valdivia Mother Health Care Agent Healthcare Agents on File Name Relationship Healthcare Agent Relationshi p Communication Summer Shin Health Care Agent Healthcare Agents on File Name Relationship Healthcare Agent Relationshi p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 (Given - Provider: Emilia Berry, RN)2046 (Given - Provider: Baljinder James RN) 0317 (Given - Provider: Baljinder James RN)0926 (Given - Provider: Fay Lara RN)1500 (Canceled Entry - Provider: Automatic Discharge Provider - Comment: Automatically canceled at discontinue of medication order) PHENobarbital (Luminal) tablet 64.8 mg (CANCELED) 64.8 mg, Oral, Every 6 hours, First dose (after last modification) on Thu11/05/22 at 1430, OK to HOLD or DELAY for oversedation 0318 (Given - Provider: Lashae Hartley RN)0909 (Given - Provider: Fay Lara RN) PHENobarbital (Luminal) tablet 64.8 mg (COMPLETED)(Linked Group 1) 64.8 mg, Oral, Every 6 hours, First dose (after last modification) on Janay 11/06/22 at 1500, For 3 doses, OK to HOLD or DELAY for oversedation 1501 (Given - Provider: Fay Lara RN)2119 (Given - Provider: Baljinder James RN) 0246 (Given - Provider: Baljinder James RN) polyethylene glycol (PEG) 3350 (Miralax) packet 17 g 17 g, Oral, Daily, First dose on Thu11/08/22 at 1345 1353 (Given - Provid er: Fay Lara RN - Comment: constipaton) sertraline (Zoloft) tablet 25 mg 25 mg, Oral, Daily, First dose on Thu11/04/22 at 1000 0855 (Given - Provider: Fay Lara RN) 0851 (Given - Provider: Emilia Berry RN) 0930 (Given - Provider: Fay Lara RN) therapeutic multivitamin-minerals (Theragran-M) tablet 1 tablet, Oral, Daily, First dose on Thu11/04/22 at 0900 0856 (Given - Provider: Fay Lara RN) 0850 (Given - Provider: Emilia Berry, JOSE GUADALUPE) 0931 (Given - Provider: Fay Lara RN) thiamine (Vitamin B1) tablet 100 mg 100 mg, Oral, Daily, First dose on Thu11/04/22 at 0900 0856 (Given - Provider: Fay Lara RN) 0850 (Given - Provider: Emilia Berry RN) 0930 (Given - Provider: Fay Lara RN) traMADol (Ultram) tablet 100 mg (CANCELED)(Linked Group 2) 100 mg, Oral, Every 8 hours, First dose on Janay 11/06/22 at 0530, For 3 doses 0537 (Given - Provider: Lashae Hartley RN)1328 (Given - Provider: Fay Lara RN) PRN Medication Order 11/06/2022 11/07/2022 11/08/2022 acetaminophen (Tylenol) tablet 650 mg 650 mg, Oral, Every 6 hours PRN, mild pain (1-3), moderate pain (4-6), headaches, fever, severe pain 7-10, Starting on Thu11/04/22 at 0235 aluminum & magnesium hydroxide-simethicone (Mylanta) 200-200-20 MG/5ML oral suspension 10 mL 10 mL, Oral, 3 times daily PRN, indigestion, Starting on Thu11/04/22 at 0235 dicyclomine (Bentyl) capsule 20 mg 20 mg, Oral, 3 times daily PRN, abdominal cramps, Starting on Thu11/04/22 at 0237 hydrOXYzine pamoate (Vistaril) capsule 50 mg 50 mg, Oral, Every 6 hours PRN, allergies, anxiety, Starting on Thu11/04/22 at 0235 1800 (Given - Provider: Fay Lara RN - Comment: for anxiety) 2046 (Given - Provider: Baljinder James RN) 123 (Given - Provider: Fay Lara RN - Comment: anxiety) loperamide (Imodium) capsule 2 mg 2 mg, Oral, 4 times daily PRN, diarrhea, Starting on Thu11/04/22 at 0235, After each loose stool ondansetron ODT (Zofran-ODT) disintegrating tablet 4 mg 4 mg, Oral, Every 6 hours PRN, nausea, vomiting, Starting on Thu11/04/22 at 0236 traZODone (Desyrel) tablet 100 mg 100 mg, Oral, Nightly PRN, sleep, Starting on Thu11/04/22 at 0236 2119 (Given - Provider: Baljinder James RN) 2046 (Given - Provider: Baljinder James, JOSE GUADALUPE) Linked Groups Order Group 1: PHENobarbital (Luminal) tablet 64.8 mg (COMPLETED)Jump to med 64.8 mg, Oral, Every 6 hours, First dose (after last modification) on Thu11/06/22 at 1500, For 3 doses, OK to HOLD or DELAY for oversedation Followed by PHENobarbital (Luminal) tablet 32.4 mgJump to med 32.4 mg, Oral, Every 6 hours, First dose on Thu11/07/22 at 0900, OK to HOLD or DELAY for oversedation Group 2: traMADol (Ultram) tablet 100 mg (COMPLETED) 100 mg, Oral, Every 4 hours, First dose on Thu11/04/22 at 0250, For 6 doses Followed by traMADol (Ultram) tablet 100 mg (COMPLETED) 100 mg, Oral, Every 6 hours, First dose on Thu11/05/22 at 0530, For 4 doses Followed by traMADol (Ultram) tablet 100 mg (CANCELED)Jump to med 100 mg, Oral, Every 8 hours, First dose on Thu11/06/22 at 0530, For 3 doses PRN Medication Order 12/14/2022 12/15/2022 12/16/2022 iopamidol (Isovue-370) 76 % injection 75 mL (COMPLETED) 75 mL, IntraVENous, IMG once PRN, contrast, Starting on Thu12/16/22 at 2300, For 1 dose 2300 (Given - Provid er: TANA Paniagua) Scheduled Medication Order 06/26/2023 06/27/2023 06/28/2023 buprenorphine-naloxone (Suboxone) 2-0.5 MG per sublingual film 1 Film 1 Film, SubLINGual, Every 6 hours, First dose on Thu06/25/23 at 1400 0211 (Given - Provider: Roma Rios, JOSE GUADALUPE)0909 (Given - Provider: Maria Isabel Parks RN)1434 (Given - Provider: Maria Isabel Parks, JOSE GUADALUPE)1959 (Given - Provider: Savanna Hodges, JOSE GUADALUPE) 0155 (Given - Provider: Savanna Hodges, JOSE GUADALUPE)0854 (Given - Provider: Maria Isabel Parks, JOSE GUADALUPE)1559 (Given - Provider: Maria Isabel Parks RN)2149 (Given - Provider: Karyna Dyer, RN) 0208 (Given - Provider: Karyna Dyer, RN)0909 (Given - Provider: Giovanna Mena, RN)1400 (Canceled Entry - Provider: Automatic Discharge Provider - Comment: Automatically canceled at discontinue of medication order) cloNIDine (Catapres) tablet 0.1 mg 0.1 mg, Oral, Every 12 hours, First dose (after last modification) on Janay 06/25/23 at 2020, Hold if SBP <100 0909 (Given - Provider: Maria Isabel Parks RN)1957 (Given - Provider: Savanna Hodges RN) 0854 (Given - Provider: Maria Isabel Parks RN)2148 (Given - Provider: Karyna Dyer RN) 0909 (Given - Provider: Giovanna Mena RN) enoxaparin (Lovenox) syringe 40 mg 40 mg, SubCUTAneous, Every 24 hours scheduled (Daily), First dose on Janay 06/25/23 at 0900, Indication of Use: Prophylaxis-DVT/PE, Indications: Prophylaxis of Venous Thromboembolism 0909 (Given - Provider: Maria Isabel Parks RN) 0853 (Given - Provider: Maria Isabel Parks RN) 0909 (Given - Provider: Giovanna Mena RN) folic acid (Folvite) tablet 1 mg 1 mg, Oral, Daily, First dose on Janay 06/25/23 at 0900 0909 (Given - Provider: Maria Isabel Parks RN) 0855 (Given - Provider: Maria Isabel Parks RN) 0909 (Given - Provider: Giovanna Mena RN) metoprolol succinate XL (Toprol-XL) 24 hr tablet 25 mg 25 mg, Oral, Daily, First dose on Janay 06/25/23 at 0900, Do not crush or chew., Indications: Last filled 09/30 for a 90 day supply. 0909 (Given - Provider: Maria Isabel Parks RN) 0854 (Given - Provider: Maria Isabel Parks RN) 0909 (Given - Provider: Giovanna Mena, JOSE GUADALUPE) nicotine (Nicoderm, Step 1) 21 MG/24HR patch 1 patch(Linked Group 1) 1 patch, TransDERmal, Administer over 24 Hours, Daily, First dose on Thu06/26/23 at 0900, For 42 days, Apply new patch to nonhairy, clean, dry skin on the upper body or upper outer arm. Rotate patch sites. Notify Pharmacy if patient or provider prefers patch to be removed at bedtime and replaced in the morning. 0908 (Medication Applied - Provider: Maria Isabel Parks RN) 0853 (Not Given - Provider: Maria Isabel Parks RN - Reason: Patient/family refused) 0909 (Medication Applied - Provider: Giovanna Mena RN)1235 (Due: Medication Removed - Provider: Automatic Discharge Provider - Comment: Time automatically adjusted from order being discontinued) nicotine (Nicoderm, Step 2) 14 MG/24HR patch 1 patch(Linked Group 1) 1 patch, TransDERmal, Administer over 24 Hours, Daily, First dose on Thu08/07/23 at 0900, For 14 days, Apply new patch to nonhairy, clean, dry skin on the upper body or upper outer arm. Rotate patch sites. Notify Pharmacy if patient or provider prefers patch to be removed at bedtime and replaced in the morning. nicotine (Nicoderm, Step 3) 7 MG/24HR patch 1 patch(Linked Group 1) 1 patch, TransDERmal, Administer over 24 Hours, Daily, First dose on Thu08/21/23 at 0900, For 14 days, Apply new patch to nonhairy, clean, dry skin on the upper body or upper outer arm. Rotate patch sites. Notify Pharmacy if patient or provider prefers patch to be removed at bedtime and replaced in the morning. OLANZapine (ZyPREXA) tablet 5 mg 5 mg, Oral, Nightly, First dose (after last modification) on Thu06/26/23 at 2100 2000 (Given - Provider: Savanna Hodges, JOSE GUADALUPE) 2148 (Given - Provider: Karyna Dyer RN) pantoprazole (ProtoNix) EC tablet 40 mg 40 mg, Oral, Daily before breakfast, First dose on Thu06/25/23 at 0600, Substituted for omeprazole (Prilosec). Do not crush, chew, or split. 0522 (Given - Provider: Roma Rios RN) 0548 (Given - Provider: Savanna Hodges RN) 0608 (Given - Provider: Karyna Dyer, JOSE GUADALUPE) PHENobarbital tablet 16.2 mg(Linked Group 2) 16.2 mg, Oral, Every 4 hours, First dose on Thu06/28/23 at 1400, For 6 doses, Hold for excessive sedation 1400 (Canceled Entry - Provider: Automatic Discharge Provider - Comment: Automatically canceled at discontinue of medication order) PHENobarbital tablet 32.4 mg (COMPLETED)(Linked Group 2) 32.4 mg, Oral, Every 4 hours, First dose on Thu06/27/23 at 1400, For 6 doses, Hold for excessive sedation 1559 (Given - Provider: Maria Isabel Parks RN)1851 (Given - Provider: Maria Isabel Parks, JOSE GUADALUPE)2237 (Given - Provider: Karyna Dyer, RN) 0208 (Given - Provider: Karyna Dyer RN)0608 (Given - Provider: Karyna Dyer RN)1003 (Given - Provider: Giovanna Mena RN) PHENobarbital tablet 64.8 mg (COMPLETED)(Linked Group 2) 64.8 mg, Oral, Every 4 hours, First dose on Thu06/26/23 at 1400, For 6 doses, Hold for excessive sedation 1434 (Given - Provider: Maria Isabel Parks RN)1816 (Given - Provider: Maria Isabel Parks RN)2158 (Given - Provider: Savanna Hodges RN) 0155 (Given - Provider: Savanna Hodges, JOSE GUADALUPE)0548 (Given - Provider: Savanna Hodges, JOSE GUADALUPE)1245 (Given - Provider: Maria Isabel Parks RN) PHENobarbital tablet 97.2 mg (COMPLETED)(Linked Group 2) 97.2 mg, Oral, Every 4 hours, First dose on Janay 06/25/23 at 1400, For 6 doses, Hold for excessive sedation 0211 (Given - Provider: Roma Rios RN)0521 (Given - Provider: Roma Rios RN)0909 (Given - Provider: Maria Isabel Parks RN) risperiDONE (RisperDAL) tablet 0.5 mg 0.5 mg, Oral, 2 times daily, First dose on Janay 06/25/23 at 1345, Indications: Delusion 0908 (Given - Provider: Maria Isabel Parks RN)2000 (Given - Provider: Savanna Hodges RN) 0854 (Given - Provider: Maria Isabel Parks RN)2236 (Given - Provider: Karyna Dyer RN) 0910 (Given - Provider: Giovanna Mena, RN) thiamine (Vitamin B1) tablet 100 mg 100 mg, Oral, Daily, First dose on Janay 06/25/23 at 0900 0909 (Given - Provider: Maria Isabel Parks RN) 0854 (Given - Provider: Maria Isabel Parks RN) 0909 (Given - Provider: Giovanna Mena RN) traZODone (Desyrel) tablet 50 mg (COMPLETED) 50 mg, Oral, Once, On 06/26/23 at 2000, For 1 dose 1957 (Given - Provider: Savanna Hodges RN) venlafaxine XR (Effexor XR) 24 hr capsule 37.5 mg 37.5 mg, Oral, Daily with breakfast, First dose on 06/27/23 at 0800, Capsule may be swallowed whole, or may be opened and its contents sprinkled on applesauce if consumed immediately without chewing. Do not crush or chew. 0854 (Given - Provider: Maria Isabel Parks RN) 0909 (Given - Provider: Giovanna Mena RN) PRN Medication Order 06/26/2023 06/27/2023 06/28/2023 albuterol 108 (90 Base) MCG/ACT inhaler 2 puff 2 puff, Inhalation, Every 6 hours PRN, wheezing, Starting on Thu06/24/23 at 2249 LORazepam (Ativan) injection 1 mg(Linked Group 3) 1 mg, IntraVENous, Every 1 hour PRN, withdrawal, For alcohol withdrawal, Starting on Thu06/24/23 at 2249, For CIWA score 8 to 10. If both oral and intravenous CIWA medications ordered, use intravenous if unable to tolerate oral equivalent. Reassess CIWA one hour after each dose of medication and as needed. For IV doses dilute dose with 1ml NS. LORazepam (Ativan) injection 2 mg(Linked Group 3) 2 mg, IntraVENous, Every 1 hour PRN, withdrawal, For alcohol withdrawal., Starting on Thu06/24/23 at 2249, For CIWA score 11 to 15. If both oral and intravenous CIWA medications ordered, use intravenous if unable to tolerate oral equivalent. Reassess CIWA one hour after each dose of medication and as needed. For IV doses dilute dose with 1ml NS. LORazepam (Ativan) injection 3 mg(Linked Group 4) 3 mg, IntraVENous, Every 1 hour PRN, withdrawal, For alcohol withdrawal, Starting on Janay 06/25/23 at 0145, For CIWA score 16 to 20. If both oral and intravenous CIWA medications ordered, use intravenous if unable to tolerate oral equivalent. Reassess CIWA one hour after each dose of medication and as needed. For IV doses dilute dose with 1ml NS. LORazepam (Ativan) tablet 1 mg(Linked Group 3) 1 mg, Oral, Every 1 hour PRN, other, For alcohol withdrawal, Starting on Thu06/24/23 at 2249, For CIWA score 8 to 10. Reassess CIWA one hour after each dose of medication and as needed. LORazepam (Ativan) tablet 2 mg(Linked Group 3) 2 mg, Oral, Every 1 hour PRN, other, For alcohol withdrawal, Starting on Thu06/24/23 at 2249, For CIWA score 11 to 15. Reassess CIWA one hour after each dose of medication and as needed. LORazepam (Ativan) tablet 3 mg(Linked Group 4) 3 mg, Oral, Every 1 hour PRN, other, For alcohol withdrawal, Starting on Janay 06/25/23 at 0145, For CIWA score 16 to 20. Reassess CIWA one hour after each dose of medication and as needed. naloxone (Narcan) injection 0.4 mg 0.4 mg, IntraVENous, Every 5 min PRN, opioid reversal, Starting on Thu06/26/23 at 0852, For RR <10, pinpoint pupils, over sedation for opioid reversal - MUST notify material handler floorperson provider immediately after first dose, may give IM or SQ if no IV access ondansetron (Zofran) injection 4 mg(Linked Group 5) 4 mg, IntraVENous, Every 6 hours PRN, nausea, vomiting, Starting on Thu06/24/23 at 2249, 1st Line. Give IV if patient is unable to take orally. If inadequate response within 60 minutes, proceed to next-line agent or contact provider if no further options ordered. ondansetron ODT (Zofran-ODT) disintegrating tablet 4 mg(Linked Group 5) 4 mg, Oral, Every 8 hours PRN, nausea, vomiting, Starting on Thu06/24/23 at 2249, 1st Line. If inadequate response within 60 minutes, proceed to next-line agent or contact provider if no further options ordered. Patient should allow tablet to dissolve on tongue. Do not remove from blister pack until just before administering. polyethylene glycol (PEG) 3350 (Miralax) packet 17 g 17 g, Oral, Daily PRN, constipation, Starting on Thu06/24/23 at 2249, 1st line for treatment of constipation - give scheduled if no bowel movement in past 24 hours. Linked Groups Order Group 1: nicotine (Nicoderm, Step 1) 21 MG/24HR patch 1 patchJump to med 1 patch, TransDERmal, Administer over 24 Hours, Daily, First dose on Thu06/26/23 at 0900, For 42 days, Apply new patch to nonhairy, clean, dry skin on the upper body or upper outer arm. Rotate patch sites. Notify Pharmacy if patient or provider prefers patch to be removed at bedtime and replaced in the morning. Followed by nicotine (Nicoderm, Step 2) 14 MG/24HR patch 1 patchJump to med 1 patch, TransDERmal, Administer over 24 Hours, Daily, First dose on Thu08/07/23 at 0900, For 14 days, Apply new patch to nonhairy, clean, dry skin on the upper body or upper outer arm. Rotate patch sites. Notify Pharmacy if patient or provider prefers patch to be removed at bedtime and replaced in the morning. Followed by nicotine (Nicoderm, Step 3) 7 MG/24HR patch 1 patchJump to med 1 patch, TransDERmal, Administer over 24 Hours, Daily, First dose on Thu08/21/23 at 0900, For 14 days, Apply new patch to nonhairy, clean, dry skin on the upper body or upper outer arm. Rotate patch sites. Notify Pharmacy if patient or provider prefers patch to be removed at bedtime and replaced in the morning. Group 2: PHENobarbital tablet 97.2 mg (COMPLETED)Jump to med 97.2 mg, Oral, Every 4 hours, First dose on Thu06/25/23 at 1400, For 6 doses, Hold for excessive sedation Followed by PHENobarbital tablet 64.8 mg (COMPLETED)Jump to med 64.8 mg, Oral, Every 4 hours, First dose on Thu06/26/23 at 1400, For 6 doses, Hold for excessive sedation Followed by PHENobarbital tablet 32.4 mg (COMPLETED)Jump to med 32.4 mg, Oral, Every 4 hours, First dose on Thu06/27/23 at 1400, For 6 doses, Hold for excessive sedation Followed by PHENobarbital tablet 16.2 mgJump to med 16.2 mg, Oral, Every 4 hours, First dose on Thu06/28/23 at 1400, For 6 doses, Hold for excessive sedation Group 3: LORazepam (Ativan) tablet 1 mgJump to med 1 mg, Oral, Every 1 hour PRN, other, For alcohol withdrawal, Starting on Thu06/24/23 at 2249, For CIWA score 8 to 10. Reassess CIWA one hour after each dose of medication and as needed. Or LORazepam (Ativan) injection 1 mgJump to med 1 mg, IntraVENous, Every 1 hour PRN, withdrawal, For alcohol withdrawal, Starting on Thu06/24/23 at 2249, For CIWA score 8 to 10. If both oral and intravenous CIWA medications ordered, use intravenous if unable to tolerate oral equivalent. Reassess CIWA one hour after each dose of medication and as needed. For IV doses dilute dose with 1ml NS. Or LORazepam (Ativan) tablet 2 mgJump to med 2 mg, Oral, Every 1 hour PRN, other, For alcohol withdrawal, Starting on Thu06/24/23 at 2249, For CIWA score 11 to 15. Reassess CIWA one hour after each dose of medication and as needed. Or LORazepam (Ativan) injection 2 mgJump to med 2 mg, IntraVENous, Every 1 hour PRN, withdrawal, For alcohol withdrawal., Starting on Thu06/24/23 at 2249, For CIWA score 11 to 15. If both oral and intravenous CIWA medications ordered, use intravenous if unable to tolerate oral equivalent. Reassess CIWA one hour after each dose of medication and as needed. For IV doses dilute dose with 1ml NS. Group 4: LORazepam (Ativan) tablet 3 mgJump to med 3 mg, Oral, Every 1 hour PRN, other, For alcohol withdrawal, Starting on Thu06/25/23 at 0145, For CIWA score 16 to 20. Reassess CIWA one hour after each dose of medication and as needed. Or LORazepam (Ativan) injection 3 mgJump to med 3 mg, IntraVENous, Every 1 hour PRN, withdrawal, For alcohol withdrawal, Starting on Janay 06/25/23 at 0145, For CIWA score 16 to 20. If both oral and intravenous CIWA medications ordered, use intravenous if unable to tolerate oral equivalent. Reassess CIWA one hour after each dose of medication and as needed. For IV doses dilute dose with 1ml NS. Group 5: ondansetron ODT (Zofran-ODT) disintegrating tablet 4 mgJump to med 4 mg, Oral, Every 8 hours PRN, nausea, vomiting, Starting on Thu06/24/23 at 2249, 1st Line. If inadequate response within 60 minutes, proceed to next-line agent or contact provider if no further options ordered. Patient should allow tablet to dissolve on tongue. Do not remove from blister pack until just before administering. Or ondansetron (Zofran) injection 4 mgJump to med 4 mg, IntraVENous, Every 6 hours PRN, nausea, vomiting, Starting on Thu06/24/23 at 2249, 1st Line. Give IV if patient is unable to take orally. If inadequate response within 60 minutes, proceed to next-line agent or contact provider if no further options ordered. Scheduled Medication Order 08/13/2023 08/14/2023 08/15/2023 buprenorphine-naloxon e (Suboxone) 8-2 MG per sublingual film 1 Film 1 Film, SubLINGual, Daily, First dose on Thu08/11/23 at 1230 0908 (Given - Provider: Marilynn Tinoco RN) 0849 (Given - Provider: Mckenna Pandya, JOSE GUADALUPE) 0943 (Given - Provider: Fay Lara, JOSE GUADALUPE) cloNIDine (Catapres) tablet 0.1 mg 0.1 mg, Oral, 3 times daily, First dose (after last modification) on Thu08/11/23 at 2100 0900 (Given - Provider: Marilynn Tinoco RN)1435 (Given - Provider: Marilynn Tinoco RN)2000 (Given - Provider: Lashae Hartley RN) 0849 (Given - Provider: Mckenna Pandya, JOSE GUADALUPE)1443 (Given - Provider: Mckenna Pandya RN)2013 (Given - Provider: Feli May, JOSE GUADALUPE) 0901 (Given - Provider: Fay Lara, JOSE GUADALUPE)1400 (Canceled Entry - Provider: Automatic Discharge Provider - Comment: Automatically canceled at discontinue of medication order) folic acid (Folvite) tablet 1 mg 1 mg, Oral, Daily, First dose on Thu08/11/23 at 0900 0905 (Given - Provider: Marilynn Tinoco RN) 0849 (Given - Provider: Mckenna Pandya RN) 0855 (Given - Provider: Fay Lara, JOSE GUADALUPE) gabapentin (Neurontin) capsule 300 mg 300 mg, Oral, Every 8 hours, First dose on Thu08/11/23 at 0300, Hold for excessive sedation 0345 (Given - Provider: Velma Forman RN)1131 (Self Administered Via Pump - Provider: Marilynn Tinoco RN)2000 (Given - Provider: Lashae Hartley RN) 0401 (Given - Provider: Lashae Hartley RN)1309 (Given - Provider: Mckenna Pandya RN)2013 (Given - Provider: Feli May, JOSE GUADALUPE) 0347 (Given - Provider: Feli May, JOSE GUADALUPE)1203 (Given - Provider: Fay Lara, JOSE GUADALUPE) metoprolol succinate XL (Toprol-XL) 24 hr tablet 50 mg 50 mg, Oral, Daily, First dose on Thu08/11/23 at 0900, Do not crush or chew., Indications: Last filled 09/30 for a 90 day supply. 0909 (Given - Provider: Marilynn Tinoco RN) 0849 (Given - Provider: Mckenna Pandya RN) 0901 (Given - Provider: Fay Lara, JOSE GUADALUPE) OLANZapine (ZyPREXA) tablet 2.5 mg 2.5 mg, Oral, 2 times daily, First dose (after last modification) on Thu08/12/23 at 1500, Can take with Vistaril 0600 (Given - Provider: Velma Forman RN)1444 (Given - Provider: Marilynn Tinoco RN) 0511 (Given - Provider: aLshae Hartley RN)1443 (Given - Provider: Mckenna Pandya, JOSE GUADALUPE) 0524 (Given - Provider: Maricel Diggs, JOSE GUADALUPE)1500 (Canceled Entry - Provider: Automatic Discharge Provider - Comment: Automatically canceled at discontinue of medication order) pantoprazole (ProtoNix) EC tablet 40 mg 40 mg, Oral, Daily before breakfast, First dose on Thu08/11/23 at 1100, Substituted for omeprazole (Prilosec). Do not crush, chew, or split. 0531 (Given - Provider: Velma Forman RN) 0511 (Given - Provider: Lashae Hartley RN) 0524 (Given - Provider: Maricel Diggs, JOSE GUADALUPE) PHENobarbital tablet 16.2 mg(Linked Group 1) 16.2 mg, Oral, Every 4 hours, First dose on Thu08/14/23 at 0400, For 6 doses, Hold for excessive sedation 0401 (Given - Provider: Lashae Hartley RN)0849 (Given - Provider: Mckenna Pandya RN)1309 (Given - Provider: Mckenna Pandya RN)1600 (Not Given - Provider: Mckenna Pandya RN - Reason: Patient/family refused)2014 (Given - Provider: Feli May, JOSE GUADALUPE) 0000 (Not Given - Provider: Feli May RN - Reason: Patient/family refused - Comment: did not want) PHENobarbital tablet 32.4 mg (COMPLETED)(Linked Group 1) 32.4 mg, Oral, Every 4 hours, First dose on Thu08/13/23 at 0400, For 6 doses, Hold for excessive sedation 0345 (Given - Provider: Velma Forman RN)0756 (Given - Provider: Marilynn Tinoco RN)1131 (Given - Provider: Marilynn Tinoco RN)1609 (Given - Provider: Lashae Ospina RN)2000 (Given - Provider: Lashae Hartley RN) 0026 (Given - Provider: Lashae Hartley RN) thiamine (Vitamin B1) tablet 100 mg 100 mg, Oral, 3 times daily, First dose on Thu08/11/23 at 0900 0903 (Given - Provider: Marilynn Tinoco RN)1436 (Given - Provider: Marilynn Tinoco RN)2001 (Given - Provider: Lashae Hartley RN) 0849 (Given - Provider: Mckenna Padnya RN)1443 (Given - Provider: Mckenna Pandya RN)2013 (Given - Provider: Feli May, JOSE GUADALUPE) 0855 (Given - Provider: Fay Lara, JOSE GUADALUPE)1400 (Canceled Entry - Provider: Automatic Discharge Provider - Comment: Automatically canceled at discontinue of medication order) traZODone (Desyrel) tablet 100 mg 100 mg, Oral, Nightly, First dose on Thu08/11/23 at 2100 2258 (Given - Provider: Lashae Hartley RN) 2013 (Given - Provider: Feli May, JOSE GUADALUPE) venlafaxine XR (Effexor XR) 24 hr capsule 75 mg 75 mg, Oral, Daily with breakfast, First dose (after last modification) on Thu08/12/23 at 0800, Capsule may be swallowed whole, or may be opened and its contents sprinkled on applesauce if consumed immediately without chewing. Do not crush or chew. 0757 (Given - Provider: Marilynn Tinoco RN) 0849 (Given - Provider: Mckenna Pandya RN) 0855 (Given - Provider: Fay Lara RN) PRN Medication Order 08/13/2023 08/14/2023 08/15/2023 aluminum & magnesium hydroxide-simethicone (Mylanta) 200-200-20 MG/5ML oral suspension 10 mL 10 mL, Oral, 3 times daily PRN, indigestion, Starting on Thu08/11/23 at 0955 dicyclomine (Bentyl) tablet 10 mg 10 mg, Oral, 3 times daily PRN, colic, Starting on Thu08/11/23 at 0253 hydrOXYzine pamoate (Vistaril) capsule 50 mg 50 mg, Oral, 2 times daily PRN, anxiety, Starting on Thu08/11/23 at 0936 1130 (Self Administered Via Pump - Provider: Marilynn Tinoco RN) 1200 (Given - Provider: Mckenna Pandya RN) loperamide (Imodium) capsule 2 mg 2 mg, Oral, 4 times daily PRN, diarrhea, Starting on Thu08/11/23 at 0253, After each loose stool LORazepam (Ativan) injection 1 mg 1 mg, IntraMUSCular, Every 2 hour PRN, seizures, Only give if having a seizure. Please notify material handler floorperson attending if utilized., Starting on Thu08/11/23 at 0955, For IV doses dilute dose with 1ml NS. magnesium hydroxide (Milk of Magnesia) 400 MG/5ML suspension 30 mL 30 mL, Oral, 2 times daily PRN, constipation, Starting on Thu08/11/23 at 0955 naloxone (Narcan) injection 0.4 mg 0.4 mg, IntraVENous, Every 5 min PRN, opioid reversal, respiratory depression, Starting on Thu08/11/23 at 1224, +++ For RR <10, pinpoint pupils, over sedation for opioid reversal - MUST notify material handler floorperson provider immediately after first dose, may give IM or SQ if no IV access +++ nicotine polacrilex (Nicorette) gum 2 mg 2 mg, Mouth/Throat, Every 2 hour PRN, smoking cessation, Starting on Thu08/12/23 at 1057 promethazine (Phenergan) injection 12.5 mg(Linked Group 2) 12.5 mg, IntraMUSCular, Every 4 hours PRN, nausea, vomiting, Starting on Thu08/11/23 at 0937, Give IM if patient is unable to take orally or receive rectally. Not for IV administration. 1130 (See Alternative - Provider: Marilynn Tinoco RN) 2022 (See Alternative - Provider: Feli May, JOSE GUADALUPE) promethazine (Phenergan) tablet 12.5 mg(Linked Group 2) 12.5 mg, Oral, Every 6 hours PRN, nausea, vomiting, Starting on Thu08/11/23 at 0937 1130 (Self Administered Via Pump - Provider: Marilynn Tinoco RN) 2022 (Given - Provider: Feli May, JOSE GUADALUPE) Linked Groups Order Group 1: PHENobarbital tablet 97.2 mg (COMPLETED) 97.2 mg, Oral, Every 4 hours, First dose on Thu08/11/23 at 0300, For 6 doses, Hold for excessive sedation Followed by PHENobarbital tablet 64.8 mg (COMPLETED) 64.8 mg, Oral, Every 4 hours, First dose on Thu08/12/23 at 0400, For 6 doses, Hold for excessive sedation Followed by PHENobarbital tablet 32.4 mg (COMPLETED)Jump to med 32.4 mg, Oral, Every 4 hours, First dose on Thu08/13/23 at 0400, For 6 doses, Hold for excessive sedation Followed by PHENobarbital tablet 16.2 mgJump to med 16.2 mg, Oral, Every 4 hours, First dose on Thu08/14/23 at 0400, For 6 doses, Hold for excessive sedation Group 2: promethazine (Phenergan) tablet 12.5 mgJump to med 12.5 mg, Oral, Every 6 hours PRN, nausea, vomiting, Starting on Thu08/11/23 at 0937 Or promethazine (Phenergan) injection 12.5 mgJump to med 12.5 mg, IntraMUSCular, Every 4 hours PRN, nausea, vomiting, Starting on Thu08/11/23 at 0937, Give IM if patient is unable to take orally or receive rectally. Not for IV administration. Scheduled Medication Order 09/29/2023 2023 10/01/2023 LORazepam (Ativan) injection 1 mg (COMPLETED) 1 mg, IntraVENous, Once, On Thu10/01/23 at 0145, For 1 dose, For IV doses dilute dose with 1ml NS. 0146 (Given - Provid er: Iwona Weiner RN) ondansetron (Zofran) injection 4 mg (COMPLETED) 4 mg, IntraVENous, Once, On Thu10/01/23 at 0125, For 1 dose 0126 (Given - Provid er: Iwona Weiner RN) oxyCODONE (Roxicodone) immediate release tablet 5 mg (COMPLETED) 5 mg, Oral, Once, On Thu10/01/23 at 0125, For 1 dose 0126 (Given - Provid er: Iwona Weiner RN) oxyCODONE (Roxicodone) immediate release tablet 5 mg (COMPLETED) 5 mg, Oral, Once, On Thu10/01/23 at 0255, For 1 dose 0301 (Given - Provid er: Iwona Weiner RN) sodium chloride 0.9 % bolus 1,000 mL (COMPLETED) 1,000 mL, IntraVENous, at 1,000 mL/hr, Administer over 1 Hours, Once, On Janay 10/01/23 at 0125, For 1 dose 0126 (New Bag - Prov ider: Iwona Weiner RN)0226 (Stopped - Provider: Iwona Weiner RN) Scheduled Medication Order 10/14/2023 10/15/2023 10/16/2023 ketorolac (Toradol) injection 15 mg (COMPLETED) 15 mg, IntraVENous, Once, On Thu10/16/23 at 0155, For 1 dose 0155 (Given - Provid er: Nanettesa Beckett, EMT) morphine injection 4 mg (COMPLETED) 4 mg, IntraVENous, Once, On Thu10/16/23 at 0315, For 1 dose, If oral and IV narcotics ordered, use oral first and only use IV if oral is ineffective or cannot take oral. Do Not give oral and IV within 1 hour of each other unless specifically ordered. 0316 (Given - Provid er: Sully Choi RN) ondansetron (Zofran) injection 4 mg (COMPLETED) 4 mg, IntraVENous, Once, On Thu10/16/23 at 0155, For 1 dose 0155 (Given - Provid er: Nanettesa Beckett, EMT) sodium chloride 0.9 % bolus 1,000 mL (COMPLETED) 1,000 mL, IntraVENous, at 2,000 mL/hr, Administer over 0.5 Hours, Once, On Thu10/16/23 at 0155, For 1 dose 0155 (New Bag - Prov ider: Nanettesa Beckett, EMT)0235 (Stopped - Provider: Sully Choi RN) Scheduled Medication Order 10/16/2023 10/17/2023 10/18/2023 cloNIDine (Catapres) tablet 0.1 mg 0.1 mg, Oral, 3 times daily, First dose on Thu10/16/23 at 1530 1626 (Given - Provider: Yolanda Moreau RN)1956 (Given - Provider: Patricia Degroot RN - Comment: .)2100 (Canceled Entry - Provider: Patricia Degroot RN) 1045 (Given - Provider: Mario Rodriguez RN)1514 (Given - Provider: Mario Rodriguez RN)195 (Given - Provider: Rosita Alexander RN) 0814 (Given - Provider: Benita Mccrary, JOSE GUADALUPE)1400 (Canceled Entry - Provider: Automatic Discharge Provider - Comment: Automatically canceled at discontinue of medication order) enoxaparin (Lovenox) syringe 40 mg 40 mg, SubCUTAneous, Every 24 hours scheduled (Daily), First dose on Thu10/16/23 at 1525, Indication of Use: Prophylaxis-DVT/PE, Indications: Prophylaxis of Venous Thromboembolism 1626 (Given - Provider: Yolanda Moreau RN) 0900 (Not Given - Provider: Mario Rodriguez RN - Reason: Patient/family refused) 0815 (Given - Provider: Benita Mccrary RN) folic acid (Folvite) tablet 1 mg 1 mg, Oral, Daily, First dose on Thu10/16/23 at 1530 205 (Given - Provider: Patricia Degroot RN - Comment: .) 1044 (Given - Provider: Mario Rodriguez RN) 0807 (Given - Provider: Benita Mccrary RN) HYDROmorphone (Dilaudid) injection 0.5 mg (COMPLETED) 0.5 mg, IntraVENous, Once, On Thu10/16/23 at 1225, For 1 dose, If oral and IV narcotics ordered, use oral first and only use IV if oral is ineffective or cannot take oral. Do Not give oral and IV within 1 hour of each other unless specifically ordered. 1326 (Given - Provider: Betzaida Loyola RN) metoprolol succinate XL (Toprol-XL) 24 hr tablet 50 mg 50 mg, Oral, Daily, First dose on Thu10/16/23 at 1530, Do not crush or chew., Indications: Last filled 09/30 for a 90 day supply. 1626 (Given - Provider: Yolanda Moreau RN) 1047 (Given - Provider: Mario Rodriguez RN) 0814 (Given - Provider: Benita Mccrary RN) ondansetron (Zofran) injection 4 mg (COMPLETED) 4 mg, IntraVENous, Once, On Thu10/16/23 at 1225, For 1 dose 1326 (Given - Provider: Betzaida Loyola RN) pantoprazole (ProtoNix) EC tablet 40 mg 40 mg, Oral, Daily before breakfast, First dose on Thu10/17/23 at 0600, Substituted for omeprazole (Prilosec). Do not crush, chew, or split. 0640 (Given - Provider: Patricia Degroot RN) 0513 (Given - Provider: Rosita Alexander RN) risperiDONE (RisperDAL) tablet 0.5 mg 0.5 mg, Oral, 2 times daily, First dose on Thu10/16/23 at 2100, Indications: Tourette's Syndrome 2051 (Given - Provider: Patricia Degroot RN) 1044 (Given - Provider: Mario Rodriguez RN)2003 (Given - Provider: Rosita Alexander RN) 0808 (Given - Provider: Benita Mccrary RN) sodium chloride 0.9% (NS) flush 10 mL 10 mL, IntraVENous, Every 12 hours scheduled (2 times per day), First dose on Thu10/16/23 at 2100 2100 (Not Given - Provider: Patricia Degroot RN - Reason: IV Fluids Infusing) 104 (Not Given - Provider: Mario Rodriguez RN - Reason: IV Fluids Infusing)2005 (Given - Provider: Rosita Alexander RN) 09 (Not Given - Provider: Benita Mccrary RN - Reason: IV Fluids Infusing) thiamine (Vitamin B1) tablet 100 mg 100 mg, Oral, Daily, First dose on Thu10/16/23 at 1530 2051 (Given - Provider: Patricia Degroot RN - Comment: .) 1044 (Given - Provider: Mario Rodriguez RN) 0808 (Given - Provider: Benita Mccrary RN) venlafaxine XR (Effexor XR) 24 hr capsule 37.5 mg 37.5 mg, Oral, Daily, First dose on Thu10/16/23 at 1530, Capsule may be swallowed whole, or may be opened and its contents sprinkled on applesauce if consumed immediately without chewing. Do not crush or chew. 0 (Not Given - Provider: Yolanda Moreau RN - Reason: Other) 1045 (Given - Provider: Mario Rodriguez RN) 0807 (Given - Provider: Benita Mccrary RN) Continuous Medication Order 10/16/2023 10/17/2023 10/18/2023 lactated Ringer's infusion ()(Linked Group 1) 250 mL/hr, IntraVENous, Continuous, Starting on Thu10/16/23 at 1525, For 12 hours 1619 (New Bag - Provider: Yolanda Moreau RN)1844 (Rate/Dose Verify - Provider: Yolanda Moreau RN)2051 (Rate/Dose Verify - Provider: Patricia Degroot, RN)2133 (Rate/Dose Verify - Provider: Patricia Degroot, RN) 0006 (New Bag - Provider: Patricia Degroot RN)0224 (Rate/Dose Verify - Provider: Patricia Degroot, RN)0406 (Stopped - Provider: Patricia Degroot, RN) lactated Ringer's infusion (CANCELED)(Linked Group 1) 150 mL/hr, IntraVENous, Continuous, Starting on Thu10/17/23 at 0419 0405 (New Bag - Provider: Patricia Degroot RN)0640 (Rate/Dose Verify - Provider: Patricia Degroot, JOSE GUADALUPE)1030 (New Bag - Provider: Mario Rodriguez RN)2000 (New Bag - Provider: Rosita Aelxander RN) 0516 (New Bag - Provider: Rosita Alexander, JOSE GUADALUPE)0755 (Rate/Dose Verify - Provider: Benita Mccrary, JOSE GUADALUPE)0805 (New Bag - Provider: Benita Mccrary, JOSE GUADALUPE)1000 (Stopped - Provider: Benita Mccrary RN) sodium chloride 0.9 % infusion (CANCELED) 125 mL/hr, IntraVENous, Continuous, Starting on Thu10/16/23 at 1225 1326 (New Bag - Provider: Betzaida Loyola RN)1655 (Stopped - Provider: Yolanda Moreau RN) PRN Medication Order 10/16/2023 10/17/2023 10/18/2023 aluminum & magnesium hydroxide-simethicone (Mylanta) 200-200-20 MG/5ML oral suspension 20 mL 20 mL, Oral, 3 times daily PRN, indigestion, heartburn, Starting on Thu10/16/23 at 2036 2106 (Given - Provider: Patricia Degroot, JOSE GUADALUPE) 0640 (Given - Provider: Patricia Degroot, JOSE GUADALUPE) HYDROmorphone (Dilaudid) injection 0.5 mg (CANCELED) 0.5 mg, IntraVENous, Every 4 hours PRN, severe pain (7-10), Starting on Thu10/16/23 at 1943, If oral and IV narcotics ordered, use oral first and only use IV if oral is ineffective or cannot take oral. Do Not give oral and IV within 1 hour of each other unless specifically ordered. 1955 (Given - Provider: Patricia Degroot, JOSE GUADALUPE) 0006 (Given - Provider: Patricia Degroot RN)0406 (Given - Provider: Patricia Degroot RN)1044 (Given - Provider: Mario Rodriguez, JOSE GUADALUPE)151 (Given - Provider: Mario Rodriguez, JOSE GUADALUPE) HYDROmorphone (Dilaudid) injection 0.5 mg (CANCELED) 0.5 mg, IntraVENous, Every 6 hours PRN, severe pain (7-10), Starting on Thu10/17/23 at 1520, If oral and IV narcotics ordered, use oral first and only use IV if oral is ineffective or cannot take oral. Do Not give oral and IV within 1 hour of each other unless specifically ordered. 1953 (Given - Provider: Rosita Alexander RN) 0514 (Given - Provider: Rosita Alexander RN) hydrOXYzine pamoate (Vistaril) capsule 50 mg 50 mg, Oral, 2 times daily PRN, anxiety, Starting on Thu10/16/23 at 1526 1955 (Given - Provider: Patricia Degroot RN) 1953 (Given - Provider: Rosita Alexander RN) LORazepam (Ativan) injection 1 mg(Linked Group 2) 1 mg, IntraVENous, Every 1 hour PRN, withdrawal, For alcohol withdrawal, Starting on Thu10/16/23 at 1525, For CIWA score 8 to 10. If both oral and intravenous CIWA medications ordered, use intravenous if unable to tolerate oral equivalent. Reassess CIWA one hour after each dose of medication and as needed. For IV doses dilute dose with 1ml NS. 1618 (Given - Provider: Yolanda Moreau RN) LORazepam (Ativan) injection 2 mg(Linked Group 2) 2 mg, IntraVENous, Every 1 hour PRN, withdrawal, For alcohol withdrawal., Starting on Thu10/16/23 at 1525, For CIWA score 11 to 15. If both oral and intravenous CIWA medications ordered, use intravenous if unable to tolerate oral equivalent. Reassess CIWA one hour after each dose of medication and as needed. For IV doses dilute dose with 1ml NS. 1618 (See Alternative - Provider: Yolanda Moreau RN) LORazepam (Ativan) injection 4 mg(Linked Group 2) 4 mg, IntraVENous, Every 1 hour PRN, withdrawal, For alcohol withdrawal, Starting on Thu10/16/23 at 1525, For CIWA score greater than 20. If both oral and intravenous CIWA medications ordered, use intravenous if unable to tolerate oral equivalent. Reassess CIWA one hour after each dose of medication and as needed. For IV doses dilute dose with 1ml NS. 1618 (See Alternative - Provider: Yolanda Moreau RN) LORazepam (Ativan) tablet 1 mg(Linked Group 2) 1 mg, Oral, Every 1 hour PRN, other, For alcohol withdrawal, Starting on Thu10/16/23 at 1525, For CIWA score 8 to 10. Reassess CIWA one hour after each dose of medication and as needed. 1618 (See Alternative - Provider: Yolanda Moreau RN) LORazepam (Ativan) tablet 2 mg(Linked Group 2) 2 mg, Oral, Every 1 hour PRN, other, For alcohol withdrawal, Starting on Thu10/16/23 at 1525, For CIWA score 11 to 15. Reassess CIWA one hour after each dose of medication and as needed. 1618 (See Alternative - Provider: Yolanda Moreau RN) LORazepam (Ativan) tablet 3 mg(Linked Group 2) 3 mg, Oral, Every 1 hour PRN, other, For alcohol withdrawal, Starting on Thu10/16/23 at 1525, For CIWA score 16 to 20. Reassess CIWA one hour after each dose of medication and as needed. 1618 (See Alternative - Provider: Yolanda Moreau RN) melatonin tablet 5 mg 5 mg, Oral, Nightly PRN, insomnia, Starting on Thu10/16/23 at 1526 1956 (Given - Provider: Patricia Degroot RN) morphine injection 4 mg (CANCELED)(Linked Group 3) 4 mg, IntraVENous, Every 2 hour PRN, severe pain (7-10), Starting on Thu10/16/23 at 1524, If oral and IV narcotics ordered, use oral first and only use IV if oral is ineffective or cannot take oral. Do Not give oral and IV within 1 hour of each other unless specifically ordered. 1619 (Given - Provider: Yolanda Moreau, JOSE GUADALUPE) naloxone (Narcan) injection 0.4 mg 0.4 mg, IntraVENous, Every 5 min PRN, opioid reversal, respiratory depression, Starting on Thu10/16/23 at 1527, +++ For RR <10, pinpoint pupils, over sedation for opioid reversal - MUST notify material handler floorperson provider immediately after first dose, may give IM or SQ if no IV access +++ ondansetron (Zofran) injection 4 mg(Linked Group 4) 4 mg, IntraVENous, Every 6 hours PRN, nausea, vomiting, Starting on Thu10/16/23 at 1522, 1st Line. Give IV if patient is unable to take orally. If inadequate response within 60 minutes, proceed to next-line agent or contact provider if no further options ordered. ondansetron ODT (Zofran-ODT) disintegrating tablet 4 mg(Linked Group 4) 4 mg, Oral, Every 8 hours PRN, nausea, vomiting, Starting on Thu10/16/23 at 1522, 1st Line. If inadequate response within 60 minutes, proceed to next-line agent or contact provider if no further options ordered. Patient should allow tablet to dissolve on tongue. Do not remove from blister pack until just before administering. polyethylene glycol (PEG) 3350 (Miralax) packet 17 g 17 g, Oral, Daily PRN, constipation, Starting on Thu10/16/23 at 1522, 1st line for treatment of constipation - give scheduled if no bowel movement in past 24 hours. simethicone (Mylicon) chewable tablet 80 mg 80 mg, Oral, 4 times daily PRN, flatulence, Starting on Thu10/16/23 at 2035 2106 (Given - Provider: Patricia Degroot, JOSE GUADALUPE) 0407 (Given - Provider: Patricia Degroot, JOSE GUADALUPE) sodium chloride 0.9 % infusion 5-250 mL/hr, IntraVENous, PRN, if patient receiving piggyback infusions and maintenance fluids are not ordered OR KVO fluids to protect IV site / prevent frequent line interruptions/ long duration, Starting on Thu10/16/23 at 1522, For piggyback infusion, administer at same rate as piggyback for a total of 25 mL. Enter 25 mL into dose field and piggyback rate into rate field of order. If piggyback is infusing at a rate less than 100 mL/hr, enter 25 mL into dose field and 100 mL/hr into rate field of order. For KVO fluids, enter rate of 20 mL/hr or less into rate field of order. sodium chloride 0.9% (NS) flush 10 mL 10 mL, IntraVENous, PRN, line care, Starting on Thu10/16/23 at 1522, After every IV line use Linked Groups Order Group 1: lactated Ringer's infusion ()Jump to med 250 mL/hr, IntraVENous, Continuous, Starting on Thu10/16/23 at 1525, For 12 hours Followed by lactated Ringer's infusion (CANCELED)Jump to med 150 mL/hr, IntraVENous, Continuous, Starting on Thu10/17/23 at 0419 Group 2: LORazepam (Ativan) tablet 1 mgJump to med 1 mg, Oral, Every 1 hour PRN, other, For alcohol withdrawal, Starting on Thu10/16/23 at 1525, For CIWA score 8 to 10. Reassess CIWA one hour after each dose of medication and as needed. Or LORazepam (Ativan) injection 1 mgJump to med 1 mg, IntraVENous, Every 1 hour PRN, withdrawal, For alcohol withdrawal, Starting on Thu10/16/23 at 1525, For CIWA score 8 to 10. If both oral and intravenous CIWA medications ordered, use intravenous if unable to tolerate oral equivalent. Reassess CIWA one hour after each dose of medication and as needed. For IV doses dilute dose with 1ml NS. Or LORazepam (Ativan) tablet 2 mgJump to med 2 mg, Oral, Every 1 hour PRN, other, For alcohol withdrawal, Starting on Thu10/16/23 at 1525, For CIWA score 11 to 15. Reassess CIWA one hour after each dose of medication and as needed. Or LORazepam (Ativan) injection 2 mgJump to med 2 mg, IntraVENous, Every 1 hour PRN, withdrawal, For alcohol withdrawal., Starting on Thu10/16/23 at 1525, For CIWA score 11 to 15. If both oral and intravenous CIWA medications ordered, use intravenous if unable to tolerate oral equivalent. Reassess CIWA one hour after each dose of medication and as needed. For IV doses dilute dose with 1ml NS. Or LORazepam (Ativan) tablet 3 mgJump to med 3 mg, Oral, Every 1 hour PRN, other, For alcohol withdrawal, Starting on Thu10/16/23 at 1525, For CIWA score 16 to 20. Reassess CIWA one hour after each dose of medication and as needed. Or LORazepam (Ativan) injection 4 mgJump to med 4 mg, IntraVENous, Every 1 hour PRN, withdrawal, For alcohol withdrawal, Starting on Thu10/16/23 at 1525, For CIWA score greater than 20. If both oral and intravenous CIWA medications ordered, use intravenous if unable to tolerate oral equivalent. Reassess CIWA one hour after each dose of medication and as needed. For IV doses dilute dose with 1ml NS. Group 3: morphine injection 2 mg (CANCELED) 2 mg, IntraVENous, Every 2 hour PRN, moderate pain (4-6), Starting on Thu10/16/23 at 1524, If oral and IV narcotics ordered, use oral first and only use IV if oral is ineffective or cannot take oral. Do Not give oral and IV within 1 hour of each other unless specifically ordered. Or morphine injection 4 mg (CANCELED)Jump to med 4 mg, IntraVENous, Every 2 hour PRN, severe pain (7-10), Starting on Thu10/16/23 at 1524, If oral and IV narcotics ordered, use oral first and only use IV if oral is ineffective or cannot take oral. Do Not give oral and IV within 1 hour of each other unless specifically ordered. Group 4: ondansetron ODT (Zofran-ODT) disintegrating tablet 4 mgJump to med 4 mg, Oral, Every 8 hours PRN, nausea, vomiting, Starting on Thu10/16/23 at 1522, 1st Line. If inadequate response within 60 minutes, proceed to next-line agent or contact provider if no further options ordered. Patient should allow tablet to dissolve on tongue. Do not remove from blister pack until just before administering. Or ondansetron (Zofran) injection 4 mgJump to med 4 mg, IntraVENous, Every 6 hours PRN, nausea, vomiting, Starting on Thu10/16/23 at 1522, 1st Line. Give IV if patient is unable to take orally. If inadequate response within 60 minutes, proceed to next-line agent or contact provider if no further options ordered. Scheduled Medication Order 11/26/2023 11/27/2023 11/28/2023 amLODIPine (Norvasc) tablet 10 mg 10 mg, Oral, Daily, First dose (after last modification) on Thu11/22/23 at 0900 0840 (Given - Provider: Dulce Neil, RN) 1034 (Given - Provider: Dimas Lozano, JOSE GUADALUPE) 1018 (Given - Provider: Cory Tidwell RN) cloNIDine (Catapres-TTS) 0.1 MG/24HR 1 patch 1 patch, TransDERmal, Administer over 7 Days, Weekly, First dose on Thu11/18/23 at 0900, Gather your materials: You need one square, tay medicated clonidine patch. If needed, an optional white round adhesive cover may be applied directly over the medicated patch to hold it in place. Contact the pharmacy if you were not provided a square, tay patch. The white round adhesive cover does not contain any active medication and must not be used alone. To apply the Catapres-TTS patch: 1. Apply the square, tay Catapres-TTS patch once a week. Before applying a new patch, remove the old Catapres-TTS patch (and adhesive cover, if used), folding in half so the sticky sides bind together. 2. Select a new hairless area such as on the upper, outer arm or upper chest. The area chosen should be free of cuts, abrasions, irritation, scars or calluses and should not be shaved prior to applying the patch. Do not place the Catapres-TTS patch on skin folds or under tight undergarments, since premature loosening may occur. 3. Wash hands with soap and water and thoroughly dry them. 4. Clean the area chosen with soap and water. Rinse and wipe dry with a clean, dry tissue. 5. Select the pouch with the red and orange colors labeled Catapres-TTS (clonidine) and gently tear across the top of the pouch to open. Remove the square, tay patch from the pouch. Do not tear or cut the patch. 6. Remove the clear plastic protective backing from the patch by gently peeling off one half of the backing at a time. Avoid touching the sticky side of the patch. 7. Place the square, tay Catapres-TTS patch on the prepared skin site (sticky side down). Apply firm pressure over the patch to ensure good contact with the skin, especially around the edges. 8. Discard the clear plastic protective backing where children and animals cannot reach it. 9. Wash your hands with soap and water to remove any residual drug. 1548 (Due: Medicatio n Removed - Provider: Automatic Discharge Provider - Comment: Time automatically adjusted from order being discontinued) enoxaparin (Lovenox) syringe 40 mg (CANCELED) 40 mg, SubCUTAneous, Every 24 hours scheduled (Daily), First dose on Thu11/25/23 at 1800, Indication of Use: Prophylaxis-DVT/PE, Indications: Prophylaxis of Venous Thromboembolism 182 (Given - Provider: Dulce Neil, JOSE GUADALUPE) enoxaparin (Lovenox) syringe 40 mg 40 mg, SubCUTAneous, Every 24 hours scheduled (Daily), First dose (after last modification) on Thu11/27/23 at 2100, Indication of Use: Prophylaxis-DVT/PE, Indications: Prophylaxis of Venous Thromboembolism 215 (Given - Provider: Susan Zurita RN) folic acid (Folvite) tablet 1 mg 1 mg, Oral, Daily, First dose on Thu11/18/23 at 0900 0840 (Given - Provider: Dulce Neil RN) 1034 (Given - Provider: Dimas Lozano, JOSE GUADALUPE) 1018 (Given - Provider: Cory Tidwell RN) LORazepam (Ativan) injection 0.5 mg (COMPLETED) 0.5 mg, IntraVENous, Once, On Janay 11/26/23 at 2145, For 1 dose, For IV doses dilute dose with 1ml NS. 2223 (Given - Provider: Sandro Sam RN) metoprolol succinate XL (Toprol-XL) 24 hr tablet 100 mg 100 mg, Oral, Daily, First dose (after last modification) on Thu11/20/23 at 0900, Do not crush or chew., Indications: Last filled 09/30 for a 90 day supply. 0840 (Given - Provider: Dulce Neil RN) 1034 (Given - Provider: Dimas Lozano, RN) 1018 (Given - Provider: Cory Tidwell, RN) pantoprazole (ProtoNix) EC tablet 40 mg 40 mg, Oral, Daily before breakfast, First dose on Thu11/22/23 at 0700, Do not crush, chew, or split. 0506 (Given - Provider: Sandro Sam, RN) 0423 (Given - Provider: Sandro Sam, RN) 0533 (Given - Provider: Susan Zurita RN) senna-docusate sodium (Senokot-S) 8.6-50 MG tablet 2 tablet 2 tablet, Oral, 2 times daily, First dose on Janay 11/19/23 at 0900 0840 (Given - Provider: Dulce Neil, JOSE GUADALUPE)2100 (Not Given - Provider: Sandro Sam RN - Reason: Patient/family refused) 1034 (Not Given - Provider: Dimas Lozano RN - Reason: Patient/family refused)2156 (Given - Provider: Susan Zurita RN) 1017 (Given - Provider: Cory Tidwell, JOSE GUADALUPE) sodium phosphate (Fleets) enema 1 enema 1 enema, Rectal, Once, On Thu11/23/23 at 1900, For 1 dose thiamine (Vitamin B1) tablet 100 mg 100 mg, Oral, Daily, First dose on Thu11/18/23 at 0900 0840 (Given - Provider: Dulce Neil, JOSE GUADALUPE) 1034 (Given - Provider: Dimas Lozano, JOSE GUADALUPE) 1017 (Given - Provider: Cory Tidwell, RN) venlafaxine (Effexor) tablet 37.5 mg 37.5 mg, Oral, 2 times daily with meals, First dose on Thu11/27/23 at 1200, On hold since 11/28/2023 at 1452 until manually unheld 1224 (Given - Provider: Dimas Lozano, JOSE GUADALUPE)1730 (Not Given - Provider: Dimas Lozano RN - Reason: Patient/family refused - Comment: pt states he only take 1 a day) 1018 (Given - Provider: Cory Tidwell, JOSE GUADALUPE)1452 (Held by provider - Provider: Akbar Prajapati MD - Reason: Other)1748 (Unheld by provider - Provider: Automatic Discharge Provider) Continuous Medication Order 11/26/2023 11/27/2023 11/28/2023 sodium chloride 0.9 % infusion (CANCELED) 50 mL/hr, IntraVENous, Continuous, Starting on Thu11/27/23 at 1200 1224 (New Bag - Provider: Dimas Lozano RN)1514 (Rate/Dose Verify - Provider: Dimas Lozano RN)1732 (Rate/Dose Verify - Provider: Dimas Lozano RN)2202 (Rate/Dose Verify - Provider: Susan Zurita RN) 0004 (Rate/Dose Verify - Provider: Susan Zurita RN)0207 (Rate/Dose Verify - Provider: Susan Zurita RN)0221 (Rate/Dose Verify - Provider: Susan Zurita RN)0234 (Rate/Dose Verify - Provider: Susan Zurita RN)0443 (Rate/Dose Verify - Provider: Susan Zurita RN)0648 (Rate/Dose Verify - Provider: Susan Zurita RN)1019 (Rate/Dose Verify - Provider: Cory Tidwell RN)1300 (Stopped - Provider: Cory Tidwell RN) PRN Medication Order 11/26/2023 11/27/2023 11/28/2023 bisacodyl (Dulcolax) suppository 10 mg 10 mg, Rectal, Daily PRN, constipation, >2 days, Starting on Thu11/19/23 at 0546 cloNIDine (Catapres) tablet 0.1 mg 0.1 mg, Oral, Every 6 hours PRN, high blood pressure, Starting on Thu11/20/23 at 1522, HOLD if SBP < 160 or DBP < 80 or HR < 50 dicyclomine (Bentyl) capsule 20 mg 20 mg, Oral, Every 8 hours PRN, abdominal cramps, Starting on Thu11/18/23 at 1123 hydrALAZINE (Apresoline) injection 5 mg 5 mg, IntraVENous, Every 4 hours PRN, high blood pressure, sbp greater than 160, Starting on Thu11/18/23 at 0933 HYDROmorphone (Dilaudid) injection 0.25 mg 0.25 mg, IntraVENous, Every 3 hours PRN, severe pain (7-10), moderate pain (4-6), Starting on Thu11/27/23 at 1200, If oral and IV narcotics ordered, use oral first and only use IV if oral is ineffective or cannot take oral. Do Not give oral and IV within 1 hour of each other unless specifically ordered. 1356 (Given - Provider: Dimas Lozano RN)1729 (Given - Provider: Dimas Lozaon RN)2156 (Given - Provider: Susan Zurita RN) 0209 (Given - Provider: Susan Zurita RN)0620 (Given - Provider: Susan Zurita RN) HYDROmorphone (Dilaudid) injection 0.5 mg (CANCELED) 0.5 mg, IntraVENous, Every 3 hours PRN, severe pain (7-10), moderate pain (4-6), Starting on Janay 11/26/23 at 1046, If oral and IV narcotics ordered, use oral first and only use IV if oral is ineffective or cannot take oral. Do Not give oral and IV within 1 hour of each other unless specifically ordered. 1212 (Given - Provider: Dulce Neil RN)1523 (Given - Provider: Dulce Neil RN)1821 (Given - Provider: Dulce Neil RN)2122 (Given - Provider: Sandro Sam RN) 0021 (Given - Provider: Sandro Sam, JOSE GUADALUPE)0319 (Given - Provider: Sandro Sam RN)0620 (Given - Provider: Sandro Sam RN)1007 (Given - Provider: Rehana Boo RN) HYDROmorphone (Dilaudid) injection 1 mg (CANCELED) 1 mg, IntraVENous, Every 3 hours PRN, severe pain (7-10), moderate pain (4-6), Starting on Janay 11/19/23 at 1332, If oral and IV narcotics ordered, use oral first and only use IV if oral is ineffective or cannot take oral. Do Not give oral and IV within 1 hour of each other unless specifically ordered. 0159 (Given - Provider: Sandro Sam RN)0506 (Given - Provider: Sandro Sam RN)0840 (Given - Provider: Dulce Neil RN) hydrOXYzine pamoate (Vistaril) capsule 50 mg 50 mg, Oral, Every 6 hours PRN, anxiety, Starting on Thu11/18/23 at 1121, Hold for sedation, SBP < 100 and / or HR < 50. 0159 (Given - Provider: Sandro Sam, JOSE GUADALUPE)4 (Given - Provider: Sandro Sam, RN) 2154 (Given - Provider: Susan Zurita RN) iopamidol (Isovue-370) 76 % injection 100 mL 100 mL, IntraVENous, IMG once PRN, contrast, Starting on Thu11/20/23 at 1725, For 1 dose levalbuterol (Xopenex) 0.63 MG/3ML nebulizer solution 0.63 mg 0.63 mg, Nebulization, Every 8 hours PRN, wheezing, Starting on Thu11/20/23 at 1618 naloxone (Narcan) injection 0.4 mg 0.4 mg, IntraVENous, Every 5 min PRN, opioid reversal, respiratory depression, Starting on Thu11/18/23 at 0347, +++ For RR <10, pinpoint pupils, over sedation for opioid reversal - MUST notify material handler floorperson provider immediately after first dose, may give IM or SQ if no IV access +++ ondansetron (Zofran) injection 4 mg(Linked Group 1) 4 mg, IntraVENous, Every 6 hours PRN, nausea, vomiting, Starting on Thu11/18/23 at 0427, 1st Line. Give IV if patient is unable to take orally. If inadequate response within 60 minutes, proceed to next-line agent or contact provider if no further options ordered. 0854 (Given - Provider: Dulce Neil RN) 1142 (Given - Provider: Cory Tidwell, JOSE GUADALUPE) ondansetron ODT (Zofran-ODT) disintegrating tablet 4 mg(Linked Group 1) 4 mg, Oral, Every 8 hours PRN, nausea, vomiting, Starting on Thu11/18/23 at 0427, 1st Line. If inadequate response within 60 minutes, proceed to next-line agent or contact provider if no further options ordered. Patient should allow tablet to dissolve on tongue. Do not remove from blister pack until just before administering. 0854 (See Alternative - Provider: Dulce Neil RN) 1142 (See Alternative - Provider: Cory Tidwell, JOSE GUADALUPE) oxyCODONE (Roxicodone) immediate release tablet 5 mg 5 mg, Oral, Every 6 hours PRN, severe pain (7-10), moderate pain (4-6), Starting on 11/22/23 at 1446 0320 (Given - Provider: Sandro Sam, RN)0944 (Given - Provider: Dulce Neil, RN)1625 (Given - Provider: Dulce Neil RN)2223 (Given - Provider: Sandro Sam RN) 0423 (Given - Provider: Sandro Sam, RN)1227 (Given - Provider: Dimas Lozano RN - Comment: stomach)1854 (Given - Provider: Dimas Lozano RN) 0057 (Given - Provider: Susan Zurita, RN)1021 (Given - Provider: Cory Tidwell RN) perflutren protein A microsphere (Optison) 3 mL in sodium chloride (PF) 0.9 % 10 mL IV syringe 0-10 mL, IntraVENous, IMG once PRN, other, Suboptimal echo image, Starting on 11/21/23 at 0947, For 1 dose, CV Procedural Medications, Administer via slow IVP for suboptimal echocardiogram enhancement. May administer as divided doses to reach optimal image enhancement polyethylene glycol (PEG) 3350 (Miralax) packet 17 g 17 g, Oral, Daily PRN, constipation, Starting on 11/18/23 at 0427, 1st line for treatment of constipation - give scheduled if no bowel movement in past 24 hours. prochlorperazine (Compazine) injection 5 mg 5 mg, IntraVENous, Every 6 hours PRN, nausea, vomiting, Starting on 11/18/23 at 0538 simethicone (Mylicon) chewable tablet 80 mg 80 mg, Oral, 4 times daily PRN, flatulence, gas pressure, Starting on Janay 11/19/23 at 0545 traZODone (Desyrel) tablet 50 mg 50 mg, Oral, Nightly PRN, sleep, Starting on 11/18/23 at 1124, Second line for sleep May be given within 1 hour of Doxepin Hold for sedation, SBP < 100 and / or HR < 50. 1150 (Unheld by provider - Provider: Akbar Prajapati MD)2156 (Given - Provider: Susan Zurita, JOSE GUADALUPE) Linked Groups Order Group 1: ondansetron ODT (Zofran-ODT) disintegrating tablet 4 mgJump to med 4 mg, Oral, Every 8 hours PRN, nausea, vomiting, Starting on Thu11/18/23 at 0427, 1st Line. If inadequate response within 60 minutes, proceed to next-line agent or contact provider if no further options ordered. Patient should allow tablet to dissolve on tongue. Do not remove from blister pack until just before administering. Or ondansetron (Zofran) injection 4 mgJump to med 4 mg, IntraVENous, Every 6 hours PRN, nausea, vomiting, Starting on Thu11/18/23 at 0427, 1st Line. Give IV if patient is unable to take orally. If inadequate response within 60 minutes, proceed to next-line agent or contact provider if no further options ordered. Scheduled Medication Order 12/15/2023 12/16/2023 12/17/2023 desvenlafaxine (Pristiq) 24 hr tablet 50 mg (CANCELED) 50 mg, Oral, Daily, First dose (after last modification) on Thu12/15/23 at 0900, Do not crush, chew, or split. 0940 (Given - Provider: Lakia Reveles RN) 0920 (Given - Provider: Lakia Reveles RN) 1030 (Given - Provider: Gina Wilde, JOSE GUADALUPE) doxepin (SINEquan) capsule 10 mg (CANCELED) 10 mg, Oral, Nightly, First dose on 12/13/23 at 2325, HOLD if sleeping or sedated. 225 (Given - Provider: Yayo Washington RN) folic acid (Folvite) tablet 1 mg 1 mg, Oral, Daily, First dose on 12/13/23 at 1415 0937 (Given - Provider: Lakia Reveles RN) 0920 (Given - Provider: Lakia Reveles, JOSE GUADALUPE) 1030 (Given - Provider: Gina Wilde, JOSE GUADALUPE) melatonin tablet 5 mg 5 mg, Oral, Nightly, First dose on 12/13/23 at 2325, HOLD if sleeping or sedated. 225 (Given - Provider: Yayo Washington RN) 2200 (Given - Provider: Virginia Miller RN) metoprolol succinate XL (Toprol-XL) 24 hr tablet 50 mg 50 mg, Oral, Daily, First dose on Thu12/14/23 at 0900, Do not crush or chew., Indications: Per [facility] last filled 08/05/2023 for a 15 day supply. 0937 (Given - Provider: Lakia Reveles RN) 0920 (Given - Provider: Lakia Reveles RN) 1030 (Given - Provider: Gina Wilde, JOSE GUADALUPE) pantoprazole (ProtoNix) EC tablet 40 mg 40 mg, Oral, 2 times daily before meals, First dose on Thu12/15/23 at 0745, Do not crush, chew, or split. 0937 (Given - Provider: Lakia Reveles RN)1745 (Given - Provider: Lakia Reveles RN) 0700 (Given - Provider: Yayo Washington, JOSE GUADALUPE)1507 (Given - Provider: Lakia Reveles RN) 0736 (Given - Provider: Virginia Miller RN)1600 (Canceled Entry - Provider: Automatic Discharge Provider - Comment: Automatically canceled at discontinue of medication order) PHENobarbital tablet 16.2 mg(Linked Group 1) 16.2 mg, Oral, Every 4 hours, First dose on Thu12/17/23 at 1900, For 6 doses, HOLD for sedation, SBP < 100 and / or HR < 50 PHENobarbital tablet 32.4 mg(Linked Group 1) 32.4 mg, Oral, Every 4 hours, First dose on Thu12/16/23 at 1900, For 6 doses, HOLD for sedation, SBP < 100 and / or HR < 50 1900 (Given - Provider: Lakia Reveles RN)2333 (Given - Provider: Virginia Miller, JOSE GUADALUPE) 0320 (Given - Provider: Virginia Miller, JOSE GUADALUPE)0736 (Given - Provider: Virginia Miller, JOSE GUADALUPE)1135 (Given - Provider: Gina Wilde, JOSE GUADALUPE)1500 (Canceled Entry - Provider: Automatic Discharge Provider - Comment: Automatically canceled at discontinue of medication order) PHENobarbital tablet 64.8 mg ()(Linked Group 1) 64.8 mg, Oral, Every 4 hours, First dose (after last reorder) on Thu12/15/23 at 1600, For 6 doses, HOLD for sedation, SBP < 100 and / or HR < 50 1745 (Given - Provider: Lakia Reveles RN)2245 (Given - Provider: Yayo Washington RN) 0300 (Not Given - Provider: Yayo Washington RN - Reason: Contraindicated - Comment: Increased risk of sedation; pt sleeping soundly)0700 (Given - Provider: Yayo Washington RN)1101 (Given - Provider: Lakia Reveles, JOSE GUADALUPE)1507 (Given - Provider: Lakia Reveles, JOSE GUADALUPE) PHENobarbital tablet 97.2 mg (COMPLETED) 97.2 mg, Oral, Every 4 hours, First dose on Thu12/14/23 at 0300, For 9 doses, HOLD for sedation, SBP < 100 and / or HR < 50 0010 (Given - Provider: Jaye Darden, JOSE GUADALUPE)0328 (Given - Provider: Jaye Darden RN)0937 (Given - Provider: Lakia Reveles RN)1336 (Given - Provider: Lakia Reveles RN) potassium chloride CR (Klor-Con M10) ER tablet 20 mEq (COMPLETED) 20 mEq, Oral, Once, On Thu12/15/23 at 0745, For 1 dose, Best given with food and plenty of water to minimize gastric irritation. Do not crush or chew. 0937 (Given - Provider: Lakia Reveles RN) risperiDONE (RisperDAL) tablet 0.5 mg 0.5 mg, Oral, Nightly, First dose on Thu12/14/23 at 2100, Indications: Tourette's Syndrome 2252 (Given - Provider: Yayo Washington RN) 2200 (Given - Provider: Virginia Miller, JOSE GUADALUPE) thiamine (Vitamin B1) tablet 100 mg 100 mg, Oral, Daily, First dose on Thu12/13/23 at 1415 0937 (Given - Provider: Lakia Reveles RN) 0920 (Given - Provider: Lakia Reveles, JOSE GUADALUPE) 0900 (Given - Provider: Gina Wilde RN) venlafaxine XR (Effexor XR) 24 hr capsule 75 mg 75 mg, Oral, Daily with breakfast, First dose on Thu12/18/23 at 0800, Capsule may be swallowed whole, or may be opened and its contents sprinkled on applesauce if consumed immediately without chewing. Do not crush or chew. PRN Medication Order 12/15/2023 12/16/202312/1612/17/2023 cloNIDine (Catapres) tablet 0.1 mg 0.1 mg, Oral, Every 8 hours PRN, withdrawal, Starting on 12/13/23 at 2320, HOLD if SBP < 100 or DBP < 60 or HR < 50 labetalol (Normodyne,Trandate) injection 10 mg 10 mg, IntraVENous, Every 6 hours PRN, high blood pressure, Administer for SBP >170 and/or DBP >100, Starting on Thu12/14/23 at 0020 LORazepam (Ativan) injection 1 mg(Linked Group 2) 1 mg, IntraVENous, Every 1 hour PRN, withdrawal, For alcohol withdrawal, Starting on 12/13/23 at 1412, For CIWA score 8 to 11 If both oral and intravenous CIWA medications ordered, use intravenous if unable to tolerate oral equivalent. Reassess CIWA one hour after each dose of medication and as needed. For IV doses dilute dose with 1ml NS. LORazepam (Ativan) injection 2 mg(Linked Group 2) 2 mg, IntraVENous, Every 1 hour PRN, withdrawal, For alcohol withdrawal., Starting on 12/13/23 at 1412, For CIWA score 12 or greater If both oral and intravenous CIWA medications ordered, use intravenous if unable to tolerate oral equivalent. Reassess CIWA one hour after each dose of medication and as needed. For IV doses dilute dose with 1ml NS. LORazepam (Ativan) tablet 1 mg(Linked Group 2) 1 mg, Oral, Every 1 hour PRN, other, For alcohol withdrawal, Starting on 12/13/23 at 1412, For CIWA score 8 to 11 Reassess CIWA one hour after each dose of medication and as needed. LORazepam (Ativan) tablet 2 mg(Linked Group 2) 2 mg, Oral, Every 1 hour PRN, other, For alcohol withdrawal, Starting on 12/13/23 at 1412, For CIWA score 12 or greater Reassess CIWA one hour after each dose of medication and as needed. LORazepam (Ativan) tablet 2 mg 2 mg, Oral, Every 4 hours PRN, seizures, Starting on 12/14/23 at 0453 methocarbamol (Robaxin) tablet 1,000 mg 1,000 mg, Oral, Every 6 hours PRN, muscle spasms, Starting on Thu12/13/23 at 2320 naloxone (Narcan) injection 0.4 mg 0.4 mg, IntraVENous, Every 5 min PRN, opioid reversal, respiratory depression, Starting on Thu12/14/23 at 0011, +++ For RR <10, pinpoint pupils, over sedation for opioid reversal - MUST notify material handler floorperson provider immediately after first dose, may give IM or SQ if no IV access +++ ondansetron ODT (Zofran-ODT) disintegrating tablet 4 mg 4 mg, Oral, Every 8 hours PRN, nausea, vomiting, Starting on Thu12/13/23 at 2322 oxyCODONE (Roxicodone) immediate release tablet 5 mg 5 mg, Oral, Every 6 hours PRN, moderate pain (4-6), severe pain (7-10), Starting on Thu12/14/23 at 0006 polyethylene glycol (PEG) 3350 (Miralax) packet 17 g 17 g, Oral, Daily PRN, constipation, Starting on Thu12/14/23 at 0453, 1st line for treatment of constipation - give scheduled if no bowel movement in past 24 hours. Linked Groups Order Group 1: PHENobarbital tablet 64.8 mg ()Jump to med 64.8 mg, Oral, Every 4 hours, First dose (after last reorder) on Thu12/15/23 at 1600, For 6 doses, HOLD for sedation, SBP < 100 and / or HR < 50 Followed by PHENobarbital tablet 32.4 mgJump to med 32.4 mg, Oral, Every 4 hours, First dose on Thu12/16/23 at 1900, For 6 doses, HOLD for sedation, SBP < 100 and / or HR < 50 Followed by PHENobarbital tablet 16.2 mgJump to med 16.2 mg, Oral, Every 4 hours, First dose on Janay 12/17/23 at 1900, For 6 doses, HOLD for sedation, SBP < 100 and / or HR < 50 Group 2: LORazepam (Ativan) tablet 1 mgJump to med 1 mg, Oral, Every 1 hour PRN, other, For alcohol withdrawal, Starting on Thu12/13/23 at 1412, For CIWA score 8 to 11 Reassess CIWA one hour after each dose of medication and as needed. Or LORazepam (Ativan) injection 1 mgJump to med 1 mg, IntraVENous, Every 1 hour PRN, withdrawal, For alcohol withdrawal, Starting on 12/13/23 at 1412, For CIWA score 8 to 11 If both oral and intravenous CIWA medications ordered, use intravenous if unable to tolerate oral equivalent. Reassess CIWA one hour after each dose of medication and as needed. For IV doses dilute dose with 1ml NS. Or LORazepam (Ativan) tablet 2 mgJump to med 2 mg, Oral, Every 1 hour PRN, other, For alcohol withdrawal, Starting on 12/13/23 at 1412, For CIWA score 12 or greater Reassess CIWA one hour after each dose of medication and as needed. Or LORazepam (Ativan) injection 2 mgJump to med 2 mg, IntraVENous, Every 1 hour PRN, withdrawal, For alcohol withdrawal., Starting on 12/13/23 at 1412, For CIWA score 12 or greater If both oral and intravenous CIWA medications ordered, use intravenous if unable to tolerate oral equivalent. Reassess CIWA one hour after each dose of medication and as needed. For IV doses dilute dose with 1ml NS. Or LORazepam (Ativan) tablet 3 mg (CANCELED) 3 mg, Oral, Every 1 hour PRN, other, For alcohol withdrawal, Starting on 12/13/23 at 1412, For CIWA score 16 to 20. Reassess CIWA one hour after each dose of medication and as needed. Or LORazepam (Ativan) injection 3 mg (CANCELED) 3 mg, IntraVENous, Every 1 hour PRN, withdrawal, For alcohol withdrawal, Starting on 12/13/23 at 1412, For CIWA score 16 to 20. If both oral and intravenous CIWA medications ordered, use intravenous if unable to tolerate oral equivalent. Reassess CIWA one hour after each dose of medication and as needed. For IV doses dilute dose with 1ml NS. Or LORazepam (Ativan) tablet 4 mg (CANCELED) 4 mg, Oral, Every 1 hour PRN, other, For alcohol withdrawal, Starting on 12/13/23 at 1412, For CIWA score greater than 20. Reassess CIWA one hour after each dose of medication and as needed. Or LORazepam (Ativan) injection 4 mg (CANCELED) 4 mg, IntraVENous, Every 1 hour PRN, withdrawal, For alcohol withdrawal, Starting on Sun 11/24 at 1412, For CIWA score greater than 20. If both oral and intravenous CIWA medications ordered, use intravenous if unable to tolerate oral equivalent. Reassess CIWA one hour after each dose of medication and as needed. For IV doses dilute dose with 1ml NS. Scheduled Medication Order 01/06/2024 01/07/2024 01/08/2024 famotidine (Pepcid) 20 mg in sodium chloride (PF) 0.9 % 10 mL injection (COMPLETED) 20 mg, IntraVENous, Administer over 2 Minutes, Once, On Thu01/08/24 at 0550, For 1 dose, IV Push over minimum of 2 minutes - Dilute with 10 mL NS 0631 (Given - Provid er: Sully Rivers RN) morphine injection 4 mg (COMPLETED) 4 mg, IntraVENous, Once, On Thu01/08/24 at 0550, For 1 dose, If oral and IV narcotics ordered, use oral first and only use IV if oral is ineffective or cannot take oral. Do Not give oral and IV within 1 hour of each other unless specifically ordered. 0630 (Given - Provid er: Sully Rivers RN) ondansetron (Zofran) injection 4 mg (COMPLETED) 4 mg, IntraVENous, Once, On Thu01/08/24 at 0550, For 1 dose 0630 (Given - Provid er: Sully Rivers RN) sodium chloride 0.9 % bolus 1,000 mL (COMPLETED) 1,000 mL, IntraVENous, at 1,000 mL/hr, Administer over 1 Hours, Once, On Thu01/08/24 at 0550, For 1 dose 0633 (New Bag - Prov ider: Sully Rivers RN)0733 (Stopped - Provider: Frances Adan RN) Scheduled Medication Order 03/17/2022 03/18/2022 03/19/2022 folic acid (Folvite) tablet 1 mg 1 mg, Oral, Daily, First dose on 03/16/22 at 0900 0809 (Given - Provider: Shilpi Perez RN) 0858 (Given - Provider: Fay Lara, JOSE GUADALUPE) 0837 (Given - Provider: Feli May RN) multiple vitamin tablet 1 tablet, Oral, Daily, First dose on 03/16/22 at 0900 0811 (Given - Provider: Shilpi Perez, JOSE GUADALUPE) 0858 (Given - Provider: Fay Lara, JOSE GUADALUPE) 0837 (Given - Provider: Feli May, RN) nicotine (Nicoderm, Step 1) 21 MG/24HR patch 1 patch 1 patch, TransDERmal, Administer over 24 Hours, Daily, First dose on 03/16/22 at 1045 0739 (Medication Removed - Provider: Shilpi Perez RN)1011 (Medication Applied - Provider: Shilpi Perez RN - Comment: patient reports now craving nicotine) 0859 (Medication Removed - Provider: Fay Lara, JOSE GUADALUPE - Comment: removed)0905 (Medication Applied - Provider: Fay Laar RN) 0836 (Medication Applied - Provider: Feli May, RN)0838 (Medication Removed - Provider: Feli May, RN)1437 (Due: Medication Removed - Provider: Automatic Discharge Provider - Comment: Time automatically adjusted from order being discontinued) pantoprazole (ProtoNix) EC tablet 20 mg 20 mg, Oral, Daily before breakfast, First dose on 03/16/22 at 1030, Do not crush, chew, or split. 0618 (Given - Provider: Christy Chauhan RN) 0604 (Given - Provider: Feng Lizama RN) 0559 (Given - Provider: Shilpi Perez, JOSE GUADALUPE) PHENobarbital (Luminal) tablet 32.4 mg 32.4 mg, Oral, Every 4 hours, First dose (after last modification) on Thu03/18/22 at 1200, OK to HOLD or DELAY for oversedation 1221 (Given - Provider: Fay Lara, JOSE GUADALUPE)1620 (Given - Provider: Fay Lara, JOSE GUADALUPE)2001 (Given - Provider: Shilpi Perez, JOSE GUADALUPE)2321 (Given - Provider: Shilpi Perez, JOSE GUADALUPE) 0413 (Given - Provider: Shilpi Perez RN)0837 (Given - Provider: Feli May, RN)1200 (Not Given - Provider: Feli May, JOSE GUADALUPE - Reason: Other - Comment: discharged)1600 (Canceled Entry - Provider: Automatic Discharge Provider - Comment: Automatically canceled at discontinue of medication order) PHENobarbital (Luminal) tablet 64.8 mg (CANCELED) 64.8 mg, Oral, Every 4 hours, First dose (after last modification) on Thu03/17/22 at 1600, OK to HOLD or DELAY for oversedation 1607 (Given - Provider: Calvin Morris, JOSE GUADALUPE)2012 (Given - Provider: Feng Lizama, RN) 0000 (Not Given - Provider: Feng Lizama RN - Reason: Patient/family refused)0402 (Given - Provider: Feng Lizama RN)0858 (Given - Provider: Fay Lara, JOSE GUADALUPE) PHENobarbital (Luminal) tablet 97.2 mg (CANCELED) 97.2 mg, Oral, Every 4 hours, First dose on Thu03/16/22 at 0400, OK to HOLD or DELAY for oversedation 0418 (Given - Provider: Christy Chauhan RN)0738 (Given - Provider: Shilpi Perez RN)1225 (Given - Provider: Calvin Morris RN) sertraline (Zoloft) tablet 25 mg 25 mg, Oral, Daily, First dose on 03/16/22 at 1030 0809 (Given - Provider: Shilpi Perez RN) 0900 (Given - Provider: Fay Lara, JOSE GUADALUPE) 0837 (Given - Provider: Feli May, JOSE GUADALUPE) Thiamine Mononitrate (Vitamin B1) tablet 100 mg 100 mg, Oral, 3 times daily, First dose on Thu03/17/22 at 0900 0810 (Given - Provider: Shilpi Perez RN)1226 (Given - Provider: Calvin Morris RN)1400 ([facility]: Calvin Morris RN)2012 (Given - Provider: Feng Lizama RN) 0858 (Given - Provider: Fay Lara, JOSE GUADALUPE)1423 (Given - Provider: Fay Lara, JOSE GUADALUPE)2000 (Given - Provider: Shilpi Perez RN) 0837 (Given - Provider: Feli May, JOSE GUADALUPE)1400 (Canceled Entry - Provider: Automatic Discharge Provider - Comment: Automatically canceled at discontinue of medication order) PRN Medication Order 03/17/2022 03/18/2022 03/19/2022 acetaminophen (Tylenol) tablet 650 mg 650 mg, Oral, Every 6 hours PRN, mild pain (1-3), moderate pain (4-6), headaches, fever, severe pain 7-10, Starting on 03/15/22 at 2229 2215 (Given - Provider: Feng Lizama RN) aluminum & magnesium hydroxide-simethicone (Mylanta) 200-200-20 MG/5ML oral suspension 10 mL 10 mL, Oral, 3 times daily PRN, indigestion, Starting on 03/15/22 at 2229 2214 (Given - Provider: Feng Lizama, JOSE GUADALUPE) dicyclomine (Bentyl) capsule 10 mg 10 mg, Oral, Every 6 hours PRN, Abdominal cramp, Starting on 03/17/22 at 0738 hydrOXYzine pamoate (Vistaril) capsule 50 mg 50 mg, Oral, Every 6 hours PRN, allergies, anxiety, Starting on 03/15/22 at 2229 1608 (Given - Provider: Calvin Morris RN) loperamide (Imodium) capsule 2 mg 2 mg, Oral, 4 times daily PRN, diarrhea, Starting on 03/15/22 at 2229, After each loose stool nicotine polacrilex (Nicorette) gum 2 mg 2 mg, Mouth/Throat, Every 2 hour PRN, smoking cessation, Starting on 03/17/22 at 1443 ondansetron ODT (Zofran-ODT) disintegrating tablet 4 mg 4 mg, Oral, Every 6 hours PRN, nausea, vomiting, Starting on 03/15/22 at 2229 senna-docusate sodium (Senokot-S) 8.6-50 MG tablet 2 tablet 2 tablet, Oral, 2 times daily PRN, constipation, Starting on 03/17/22 at 0738 1030 (Given - Provider: Fay Lara RN) traZODone (Desyrel) tablet 100 mg 100 mg, Oral, As needed, sleep, Starting on 03/15/22 at 2229 2019 (Given - Provider: Feng Lizama RN) Scheduled Medication Order 01/24/2024 01/25/2024 01/26/2024 cloNIDine (Catapres) tablet 0.1 mg 0.1 mg, Oral, Every 12 hours, First dose on Thu01/25/24 at 1315 1518 (Given - Provider: Marcia Pino RN) 0103 (Given - Provider: Benja Davis, RN)1430 (Given - Provider: Jade Gutierrez, RN) enoxaparin (Lovenox) syringe 40 mg 40 mg, SubCUTAneous, Every 24 hours scheduled (Daily), First dose on Thu01/20/24 at 1905, Indication of Use: Prophylaxis-DVT/PE, Indications: Prophylaxis of Venous Thromboembolism 0803 (Given - Provider: Megha Murrieta RN) 0829 (Given - Provider: Marcia Pino RN) 0822 (Given - Provider: Jade Gutirerez RN) folic acid (Folvite) tablet 1 mg 1 mg, Oral, Daily, First dose on Thu01/20/24 at 1905 0804 (Given - Provider: Megha Murrieta RN) 0829 (Given - Provider: Marcia Pino RN) 0822 (Given - Provider: Jade Gutierrez, JOSE GUADALUPE) metoprolol succinate XL (Toprol-XL) 24 hr tablet 50 mg 50 mg, Oral, Daily, First dose on Thu01/20/24 at 1905, Do not crush or chew., Indications: Per [facility] last filled 08/05/2023 for a 15 day supply. 0803 (Given - Provider: Megha Murrieta RN) 0828 (Given - Provider: Marcia Pino RN) 0822 (Given - Provider: Jade Gutierrez, JOSE GUADALUPE) pantoprazole (ProtoNix) EC tablet 40 mg 40 mg, Oral, 2 times daily before meals, First dose on Janay 01/21/24 at 0700, Do not crush, chew, or split. 0442 (Given - Provider: Ajay Knight RN)1606 (Given - Provider: Megha Murrieta RN) 0523 (Given - Provider: Ajay Knight RN)1518 (Given - Provider: Marcia Pino RN) 0604 (Self Administered Via Pump - Provider: Benja Davis RN)1600 (Canceled Entry - Provider: Automatic Discharge Provider - Comment: Automatically canceled at discontinue of medication order) risperiDONE (RisperDAL) tablet 0.5 mg 0.5 mg, Oral, Nightly, First dose on Thu01/20/24 at 2100, Indications: Tourette's Syndrome 1952 (Given - Provider: Ajay Knight RN) 2224 (Given - Provider: Benja Davis RN) thiamine (Vitamin B1) tablet 100 mg 100 mg, Oral, Daily, First dose on Thu01/20/24 at 1905 0804 (Given - Provider: Megha Murrieta RN) 0828 (Given - Provider: Marcia Pino, RN) 0822 (Given - Provider: Jade Gutierrez, RN) venlafaxine XR (Effexor XR) 24 hr capsule 75 mg 75 mg, Oral, Daily with breakfast, First dose on Thu01/21/24 at 0800, Capsule may be swallowed whole, or may be opened and its contents sprinkled on applesauce if consumed immediately without chewing. Do not crush or chew. 0803 (Given - Provider: Megha Murrieta RN) 0829 (Given - Provider: Marcia Pino, RN) 0822 (Given - Provider: Jade Gutierrez, RN) Continuous Medication Order 01/24/2024 01/25/2024 01/26/2024 sodium chloride 0.9 % infusion (CANCELED) 75 mL/hr, IntraVENous, Continuous, Starting on Thu01/20/24 at 1905 0759 (New Bag - Provider: Megha Murrieta RN)1518 (New Bag - Provider: Megha Murrieta RN)1955 (Rate/Dose Verify - Provider: Ajay Knight RN)2319 (Rate/Dose Change - Provider: Ajay Knight, JOSE GUADALUPE) 1259 (New Bag - Provider: Marcia Pino, JOSE GUADALUPE) PRN Medication Order 01/24/2024 01/25/2024 01/26/2024 acetaminophen (Tylenol) suppository 650 mg(Linked Group 1) 650 mg, Rectal, Every 6 hours PRN, mild pain (1-3), fever, For temp greater than 100.4 F (38 C), Starting on Thu01/20/24 at 1900, Administer if oral route cannot be used. Maximum dose of acetaminophen is 4000 mg from all sources in 24 hours. acetaminophen (Tylenol) tablet 650 mg(Linked Group 1) 650 mg, Oral, Every 6 hours PRN, mild pain (1-3), fever, For temp greater than 100.4 F (38 C), Starting on Thu01/20/24 at 1900, Maximum dose of acetaminophen is 4000 mg from all sources in 24 hours. hydrALAZINE (Apresoline) injection 10 mg 10 mg, IntraVENous, Every 4 hours PRN, high blood pressure, Starting on Janay 01/21/24 at 1338, For SBP>160 2124 (Given - Provider: Ajay Knight, RN) 0216 (Given - Provider: Ajay Knight, RN)1256 (Given - Provider: Marcia Pino, JOSE GUADALUPE) ketorolac (Toradol) injection 15 mg 15 mg, IntraVENous, Every 6 hours PRN, Headache, Starting on 01/25/24 at 1450, For 5 days 1518 (Given - Provider: Marcia Pino, JOSE GUADALUPE) LORazepam (Ativan) injection 1 mg(Linked Group 2) 1 mg, IntraVENous, Every 1 hour PRN, withdrawal, For alcohol withdrawal, Starting on Thu01/20/24 at 1900, For CIWA score 8 to 10. If both oral and intravenous CIWA medications ordered, use intravenous if unable to tolerate oral equivalent. Reassess CIWA one hour after each dose of medication and as needed. For IV doses dilute dose with 1ml NS. LORazepam (Ativan) injection 2 mg(Linked Group 2) 2 mg, IntraVENous, Every 1 hour PRN, withdrawal, For alcohol withdrawal., Starting on Thu01/20/24 at 1900, For CIWA score 11 to 15. If both oral and intravenous CIWA medications ordered, use intravenous if unable to tolerate oral equivalent. Reassess CIWA one hour after each dose of medication and as needed. For IV doses dilute dose with 1ml NS. LORazepam (Ativan) injection 3 mg(Linked Group 2) 3 mg, IntraVENous, Every 1 hour PRN, withdrawal, For alcohol withdrawal, Starting on Thu01/20/24 at 1900, For CIWA score 16 to 20. If both oral and intravenous CIWA medications ordered, use intravenous if unable to tolerate oral equivalent. Reassess CIWA one hour after each dose of medication and as needed. For IV doses dilute dose with 1ml NS. LORazepam (Ativan) injection 4 mg(Linked Group 2) 4 mg, IntraVENous, Every 1 hour PRN, withdrawal, For alcohol withdrawal, Starting on Thu01/20/24 at 1900, For CIWA score greater than 20. If both oral and intravenous CIWA medications ordered, use intravenous if unable to tolerate oral equivalent. Reassess CIWA one hour after each dose of medication and as needed. For IV doses dilute dose with 1ml NS. LORazepam (Ativan) tablet 1 mg(Linked Group 2) 1 mg, Oral, Every 1 hour PRN, other, For alcohol withdrawal, Starting on Thu01/20/24 at 1900, For CIWA score 8 to 10. Reassess CIWA one hour after each dose of medication and as needed. LORazepam (Ativan) tablet 2 mg(Linked Group 2) 2 mg, Oral, Every 1 hour PRN, other, For alcohol withdrawal, Starting on 01/20/24 at 1900, For CIWA score 11 to 15. Reassess CIWA one hour after each dose of medication and as needed. LORazepam (Ativan) tablet 3 mg(Linked Group 2) 3 mg, Oral, Every 1 hour PRN, other, For alcohol withdrawal, Starting on Thu01/20/24 at 1900, For CIWA score 16 to 20. Reassess CIWA one hour after each dose of medication and as needed. LORazepam (Ativan) tablet 4 mg(Linked Group 2) 4 mg, Oral, Every 1 hour PRN, other, For alcohol withdrawal, Starting on Thu01/20/24 at 1900, For CIWA score greater than 20. Reassess CIWA one hour after each dose of medication and as needed. morphine injection 2 mg 2 mg, IntraVENous, Every 3 hours PRN, 2nd line breakthrough pain, Starting on 01/23/24 at 1133, If oral and IV narcotics ordered, use oral first and only use IV if oral is ineffective or cannot take oral. Do Not give oral and IV within 1 hour of each other unless specifically ordered. 0104 (Given - Provider: Ajay Knight RN)0442 (Given - Provider: Ajay Knight RN)0803 (Given - Provider: Megha Murrieta RN)1333 (Given - Provider: Wanda Davis RN)1953 (Given - Provider: Ajay Knight RN)2259 (Given - Provider: Ajay Knight RN) 0216 (Given - Provider: Ajay Knight RN)0522 (Given - Provider: Ajay Knight RN)0829 (Given - Provider: Marcia Pino RN)1248 (Given - Provider: Marcia Pino RN)1551 (Given - Provider: Marcia Pino RN)1841 (Given - Provider: Marcia Pino RN)2334 (Given - Provider: Benja Davis, JOSE GUADALUPE) 0822 (Given - Provider: Jade Gutierrez, JOSE GUADALUPE) naloxone (Narcan) injection 0.4 mg 0.4 mg, IntraVENous, Every 5 min PRN, opioid reversal, respiratory depression, Starting on Thu01/20/24 at 1908, +++ For RR <10, pinpoint pupils, over sedation for opioid reversal - MUST notify material handler floorperson provider immediately after first dose, may give IM or SQ if no IV access +++ ondansetron (Zofran) injection 4 mg(Linked Group 3) 4 mg, IntraVENous, Every 6 hours PRN, nausea, vomiting, Starting on Thu01/20/24 at 1900, 1st Line. Give IV if patient is unable to take orally. If inadequate response within 60 minutes, proceed to next-line agent or contact provider if no further options ordered. 1248 (Given - Provider: Marcia Pino RN) ondansetron ODT (Zofran-ODT) disintegrating tablet 4 mg(Linked Group 3) 4 mg, Oral, Every 8 hours PRN, nausea, vomiting, Starting on Thu01/20/24 at 1900, 1st Line. If inadequate response within 60 minutes, proceed to next-line agent or contact provider if no further options ordered. Patient should allow tablet to dissolve on tongue. Do not remove from blister pack until just before administering. 1248 (See Alternative - Provider: Marcia Pino RN) oxyCODONE (Roxicodone) immediate release tablet 10 mg(Linked Group 4) 10 mg, Oral, Every 6 hours PRN, severe pain (7-10), Starting on Thu01/23/24 at 1134 0616 (Given - Provider: Ajay Knight RN)1220 (Given - Provider: Megha Murrieta RN)1818 (Given - Provider: Megha Murrieta RN) 0042 (Given - Provider: Ajay Knight RN)0652 (Given - Provider: Ajay Knight RN)1434 (Given - Provider: Marcia Pino RN)2124 (Given - Provider: Benja Davis RN) 0604 (Self Administered Via Pump - Provider: Benja Davis RN) oxyCODONE (Roxicodone) immediate release tablet 5 mg(Linked Group 4) 5 mg, Oral, Every 6 hours PRN, moderate pain (4-6), Starting on Thu01/23/24 at 1134 0616 (See Alternative - Provider: Ajay Knight RN)1220 (See Alternative - Provider: Megha Murrieta RN)1818 (See Alternative - Provider: Megha Murrieta RN) 0042 (See Alternative - Provider: Ajay Knight RN)0652 (See Alternative - Provider: Ajay Knight RN)1434 (See Alternative - Provider: Marcia Pino RN)2124 (See Alternative - Provider: Benja Davis RN) 0604 (See Alternative - Provider: Benja Davis RN) polyethylene glycol (PEG) 3350 (Miralax) packet 17 g 17 g, Oral, Daily PRN, constipation, Starting on Thu01/20/24 at 1900, 1st line for treatment of constipation - give scheduled if no bowel movement in past 24 hours. Linked Groups Order Group 1: acetaminophen (Tylenol) tablet 650 mgJump to med 650 mg, Oral, Every 6 hours PRN, mild pain (1-3), fever, For temp greater than 100.4 F (38 C), Starting on Thu01/20/24 at 1900, Maximum dose of acetaminophen is 4000 mg from all sources in 24 hours. Or acetaminophen (Tylenol) suppository 650 mgJump to med 650 mg, Rectal, Every 6 hours PRN, mild pain (1-3), fever, For temp greater than 100.4 F (38 C), Starting on Thu01/20/24 at 1900, Administer if oral route cannot be used. Maximum dose of acetaminophen is 4000 mg from all sources in 24 hours. Group 2: LORazepam (Ativan) tablet 1 mgJump to med 1 mg, Oral, Every 1 hour PRN, other, For alcohol withdrawal, Starting on Thu01/20/24 at 1900, For CIWA score 8 to 10. Reassess CIWA one hour after each dose of medication and as needed. Or LORazepam (Ativan) injection 1 mgJump to med 1 mg, IntraVENous, Every 1 hour PRN, withdrawal, For alcohol withdrawal, Starting on Thu01/20/24 at 1900, For CIWA score 8 to 10. If both oral and intravenous CIWA medications ordered, use intravenous if unable to tolerate oral equivalent. Reassess CIWA one hour after each dose of medication and as needed. For IV doses dilute dose with 1ml NS. Or LORazepam (Ativan) tablet 2 mgJump to med 2 mg, Oral, Every 1 hour PRN, other, For alcohol withdrawal, Starting on Thu01/20/24 at 1900, For CIWA score 11 to 15. Reassess CIWA one hour after each dose of medication and as needed. Or LORazepam (Ativan) injection 2 mgJump to med 2 mg, IntraVENous, Every 1 hour PRN, withdrawal, For alcohol withdrawal., Starting on Thu01/20/24 at 1900, For CIWA score 11 to 15. If both oral and intravenous CIWA medications ordered, use intravenous if unable to tolerate oral equivalent. Reassess CIWA one hour after each dose of medication and as needed. For IV doses dilute dose with 1ml NS. Or LORazepam (Ativan) tablet 3 mgJump to med 3 mg, Oral, Every 1 hour PRN, other, For alcohol withdrawal, Starting on Thu01/20/24 at 1900, For CIWA score 16 to 20. Reassess CIWA one hour after each dose of medication and as needed. Or LORazepam (Ativan) injection 3 mgJump to med 3 mg, IntraVENous, Every 1 hour PRN, withdrawal, For alcohol withdrawal, Starting on Thu01/20/24 at 1900, For CIWA score 16 to 20. If both oral and intravenous CIWA medications ordered, use intravenous if unable to tolerate oral equivalent. Reassess CIWA one hour after each dose of medication and as needed. For IV doses dilute dose with 1ml NS. Or LORazepam (Ativan) tablet 4 mgJump to med 4 mg, Oral, Every 1 hour PRN, other, For alcohol withdrawal, Starting on Thu01/20/24 at 1900, For CIWA score greater than 20. Reassess CIWA one hour after each dose of medication and as needed. Or LORazepam (Ativan) injection 4 mgJump to med 4 mg, IntraVENous, Every 1 hour PRN, withdrawal, For alcohol withdrawal, Starting on Thu01/20/24 at 1900, For CIWA score greater than 20. If both oral and intravenous CIWA medications ordered, use intravenous if unable to tolerate oral equivalent. Reassess CIWA one hour after each dose of medication and as needed. For IV doses dilute dose with 1ml NS. Group 3: ondansetron ODT (Zofran-ODT) disintegrating tablet 4 mgJump to med 4 mg, Oral, Every 8 hours PRN, nausea, vomiting, Starting on Thu01/20/24 at 1900, 1st Line. If inadequate response within 60 minutes, proceed to next-line agent or contact provider if no further options ordered. Patient should allow tablet to dissolve on tongue. Do not remove from blister pack until just before administering. Or ondansetron (Zofran) injection 4 mgJump to med 4 mg, IntraVENous, Every 6 hours PRN, nausea, vomiting, Starting on Thu01/20/24 at 1900, 1st Line. Give IV if patient is unable to take orally. If inadequate response within 60 minutes, proceed to next-line agent or contact provider if no further options ordered. Group 4: oxyCODONE (Roxicodone) immediate release tablet 5 mgJump to med 5 mg, Oral, Every 6 hours PRN, moderate pain (4-6), Starting on 01/23/24 at 1134 Or oxyCODONE (Roxicodone) immediate release tablet 10 mgJump to med 10 mg, Oral, Every 6 hours PRN, severe pain (7-10), Starting on 01/23/24 at 1134 Scheduled Medication Order 02/06/2024 02/07/2024 02/08/2024 folic acid (Folvite) tablet 1 mg 1 mg, Oral, Daily, First dose on Thu02/05/24 at 0900 0842 (Given - Provider: Feli May RN) 0820 (Given - Provider: Feli May RN) 0820 (Given - Provider: Fay Lara, JOSE GUADALUPE) pantoprazole (ProtoNix) EC tablet 40 mg 40 mg, Oral, Daily before breakfast, First dose on 02/07/24 at 0600, Do not crush, chew, or split. 0420 (Given - Provider: Velma Forman RN) 0418 (Given - Provider: Velma Forman RN) pantoprazole (ProtoNix) EC tablet 40 mg (COMPLETED) 40 mg, Oral, Once, On 02/06/24 at 2100, For 1 dose, Do not crush, chew, or split. 2109 (Given - Provider: Velma Forman, RN) PHENobarbital tablet 32.4 mg (COMPLETED)(Linked Group 1) 32.4 mg, Oral, Every 4 hours, First dose on 02/07/24 at 1200, For 6 doses, Hold for excessive sedation 1248 (Given - Provider: Feli May RN)1639 (Given - Provider: Feli May RN)2017 (Given - Provider: Velma Forman RN) 0009 (Given - Provider: Velma Forman RN)0417 (Given - Provider: Velma Forman RN)0820 (Given - Provider: Fay Lara, JOSE GUADALUPE) PHENobarbital tablet 64.8 mg (COMPLETED)(Linked Group 1) 64.8 mg, Oral, Every 4 hours, First dose on 02/06/24 at 1200, For 6 doses, Hold for excessive sedation 1236 (Given - Provider: Feli May RN)1613 (Given - Provider: Feli May RN)2007 (Given - Provider: Velma Forman RN) 0008 (Given - Provider: Velma Forman RN)0420 (Given - Provider: Velma Forman RN)0820 (Given - Provider: Feli May RN) PHENobarbital tablet 97.2 mg (COMPLETED)(Linked Group 1) 97.2 mg, Oral, Every 4 hours, First dose on Thu02/05/24 at 1200, For 6 doses, Hold for excessive sedation 0409 (Given - Provider: Velma Forman RN)0842 (Given - Provider: Feli May, JOSE GUADALUPE) sodium chloride 0.9% (NS) flush 5 mL (CANCELED) 5 mL, IntraVENous, Every 12 hours, First dose on Thu02/06/24 at 0900 0843 (Given - Provider: Feli May, RN)2007 (Given - Provider: Velma Forman, RN) 0820 (Not Given - Provider: Feli May, JOSE GUADALUPE - Reason: Loss of IV access) thiamine (Vitamin B1) tablet 100 mg 100 mg, Oral, Daily, First dose on Thu02/05/24 at 0900 0842 (Given - Provider: Feli May, JOSE GUADALUPE) 0820 (Given - Provider: Feli May RN) 0820 (Given - Provider: Fay Lara, JOSE GUADALUPE) venlafaxine XR (Effexor XR) 24 hr capsule 75 mg 75 mg, Oral, Daily with breakfast, First dose on Thu02/07/24 at 0800, Capsule may be swallowed whole, or may be opened and its contents sprinkled on applesauce if consumed immediately without chewing. Do not crush or chew. 0820 (Given - Provider: Feli May RN) 0821 (Given - Provider: Fay Lara, JOSE GUADALUPE) PRN Medication Order 02/06/2024 02/07/2024 02/08/2024 acetaminophen (Tylenol) tablet 650 mg 650 mg, Oral, Every 6 hours PRN, mild pain (1-3), headaches, moderate pain (4-6), Starting on Thu02/05/24 at 2020, Maximum dose of acetaminophen is 4000 mg from all sources in 24 hours. hydrOXYzine pamoate (Vistaril) capsule 50 mg (CANCELED) 50 mg, Oral, Every 6 hours PRN, itching, anxiety, Starting on Thu02/05/24 at 2019 2110 (Given - Provider: Velma Forman, RN) 2017 (Given - Provider: Velma Forman, RN) ondansetron (Zofran) injection 4 mg(Linked Group 2) 4 mg, IntraVENous, Every 6 hours PRN, nausea, vomiting, Starting on Thu02/05/24 at 0305, 1st Line. Give IV if patient is unable to take orally. If inadequate response within 60 minutes, proceed to next-line agent or contact provider if no further options ordered. ondansetron ODT (Zofran-ODT) disintegrating tablet 4 mg(Linked Group 2) 4 mg, Oral, Every 8 hours PRN, nausea, vomiting, Starting on Thu02/05/24 at 0305, 1st Line. If inadequate response within 60 minutes, proceed to next-line agent or contact provider if no further options ordered. Patient should allow tablet to dissolve on tongue. Do not remove from blister pack until just before administering. polyethylene glycol (PEG) 3350 (Miralax) packet 17 g 17 g, Oral, Daily PRN, constipation, Starting on Thu02/05/24 at 0305, 1st line for treatment of constipation - give scheduled if no bowel movement in past 24 hours. propranolol (Inderal) tablet 20 mg 20 mg, Oral, 3 times daily PRN, anxiety, Starting on Thu02/08/24 at 1059 traZODone (Desyrel) tablet 100 mg 100 mg, Oral, Nightly PRN, sleep, Starting on Thu02/05/24 at 2019 2007 (Given - Provider: Velma Forman, RN) 2017 (Given - Provider: Velma Forman, JOSE GUADALUPE) Linked Groups Order Group 1: PHENobarbital tablet 97.2 mg (COMPLETED)Jump to med 97.2 mg, Oral, Every 4 hours, First dose on Thu02/05/24 at 1200, For 6 doses, Hold for excessive sedation Followed by PHENobarbital tablet 64.8 mg (COMPLETED)Jump to med 64.8 mg, Oral, Every 4 hours, First dose on Thu02/06/24 at 1200, For 6 doses, Hold for excessive sedation Followed by PHENobarbital tablet 32.4 mg (COMPLETED)Jump to med 32.4 mg, Oral, Every 4 hours, First dose on Thu02/07/24 at 1200, For 6 doses, Hold for excessive sedation Followed by PHENobarbital tablet 16.2 mg (CANCELED) 16.2 mg, Oral, Every 4 hours, First dose on 02/08/24 at 1200, For 6 doses, Hold for excessive sedation Group 2: ondansetron ODT (Zofran-ODT) disintegrating tablet 4 mgJump to med 4 mg, Oral, Every 8 hours PRN, nausea, vomiting, Starting on Thu02/05/24 at 0305, 1st Line. If inadequate response within 60 minutes, proceed to next-line agent or contact provider if no further options ordered. Patient should allow tablet to dissolve on tongue. Do not remove from blister pack until just before administering. Or ondansetron (Zofran) injection 4 mgJump to med 4 mg, IntraVENous, Every 6 hours PRN, nausea, vomiting, Starting on Thu02/05/24 at 0305, 1st Line. Give IV if patient is unable to take orally. If inadequate response within 60 minutes, proceed to next-line agent or contact provider if no further options ordered. Scheduled Medication Order 03/20/2024 03/21/2024 03/22/2024 morphine injection 4 mg (COMPLETED) 4 mg, IntraVENous, Once, On Thu03/22/24 at 1520, For 1 dose, If oral and injectable narcotics ordered, use oral first and only use injectable if oral is ineffective or cannot take oral. Do Not give oral and injectable within 1 hour of each other unless specifically ordered. 1536 (Given - Provid er: Tri Nguyen RN) ondansetron (Zofran) injection 4 mg (COMPLETED) 4 mg, IntraVENous, Once, On Thu03/22/24 at 1520, For 1 dose 1536 (Given - Provid er: Tri Nguyen RN) sodium chloride 0.9 % bolus 1,000 mL (COMPLETED) 1,000 mL, IntraVENous, at 1,000 mL/hr, Administer over 1 Hours, Once, On Thu03/22/24 at 1520, For 1 dose 1536 (New Bag - Prov ider: Tri Nguyen RN)1706 (Stopped - Provider: Janet Butcher LPN) Scheduled Medication Order 04/04/2024 04/05/2024 04/06/2024 aluminum & magnesium hydroxide-simethicone (Mylanta) 200-200-20 MG/5ML oral suspension 20 mL (COMPLETED)(Linked Group 1) 20 mL, Oral, Once, On Thu04/04/24 at 0430, For 1 dose, Mix with 5 mL viscous lidocaine oral solution and give together (25 mL total). 0437 (Given - Provider: Beatris Juarez RN) cloNIDine (Catapres) tablet 0.1 mg 0.1 mg, Oral, Every 4 hours, First dose on Thu04/05/24 at 0000, HOLD if Sleeping, Sedated, SBP < 100 or DBP < 60 or HR < 50 2338 (Given - Provider: Seema Caballero RN) 0333 (Given - Provider: Seema Caballero RN)0822 (Given - Provider: Ashanti Head RN)1227 (Given - Provider: Ashanti Head RN)1648 (Given - Provider: Ashanti Head RN)2050 (Not Given - Provider: Seema Caballero RN - Reason: Patient/family refused - Comment: also contraindicated) 0030 (Not Given - Provider: Seema Caballero RN - Reason: Order parameters not met)0350 (Not Given - Provider: Seema Caballero RN - Reason: Patient/family refused)0928 (Not Given - Provider: Ashanti Head RN - Reason: Patient/family refused)1200 (Not Given - Provider: Ashanti Head RN - Reason: Order parameters not met)1600 (Not Given - Provider: Ashanti Head RN - Reason: Patient/family refused) famotidine (Pepcid) 20 mg in sodium chloride (PF) 0.9 % 10 mL injection (COMPLETED) 20 mg, IntraVENous, Administer over 2 Minutes, Once, On Thu04/04/24 at 0430, For 1 dose, IV Push over minimum of 2 minutes - Dilute with 10 mL NS 0439 (Given - Provider: Beatris Juarez RN) folic acid (Folvite) tablet 1 mg 1 mg, Oral, Daily, First dose on Thu04/04/24 at 0900 0956 (Given - Provider: Rubin Fields) 0823 (Given - Provider: Ashanti Head, JOSE GUADALUPE) 0927 (Given - Provider: Ashanti Head RN) gabapentin (Neurontin) capsule 300 mg 300 mg, Oral, 3 times daily, First dose on Thu04/06/24 at 0915, HOLD if sleeping or sedated. 0927 (Given - Provider: Ashanti Head RN)1400 (Not Given - Provider: Ashanti Head RN - Reason: Patient/family refused) heparin injection 5,000 Units 5,000 Units, SubCUTAneous, Every 12 hours scheduled (2 times per day), First dose on Thu04/04/24 at 0900 0956 (Given - Provider: Rubin Fields)2020 (Given - Provider: Seema Caballero RN) 0823 (Given - Provider: Ashanti Head RN)2049 (Given - Provider: Seema Caballero RN) 09 (Given - Provider: Ashanti Head RN) lidocaine (Xylocaine) 2 % mouth solution 5 mL (COMPLETED)(Linked Group 1) 5 mL, Mouth/Throat, Once, On Thu04/04/24 at 0430, For 1 dose, Mix with 20 mL aluminum & magnesium hydroxide-simethicone oral solution and give together (25 mL total) 043 (Given - Provider: Beatris Juarez, JOSE GUADALUPE) LORazepam (Ativan) injection 1 mg (COMPLETED) 1 mg, IntraVENous, Once, On Thu04/04/24 at 0605, For 1 dose, For IV doses dilute dose with 1ml NS. 0614 (Given - Provider: Beatris Juarez RN) melatonin tablet 3 mg 3 mg, Oral, Nightly, First dose on Thu04/04/24 at 2100 2019 (Given - Provider: Seema Caballero RN) 2049 (Given - Provider: Seema Caballero RN) metoprolol succinate XL (Toprol-XL) 24 hr tablet 50 mg 50 mg, Oral, Daily, First dose on Thu04/04/24 at 0900, Do not crush or chew., Indications: Per [facility] last filled 08/05/2023 for a 15 day supply. 0957 (Given - Provider: Rubin Fields) 0822 (Given - Provider: Ashanti Head RN) 0900 (Not Given - Provider: Ashanti Head RN - Reason: Other - Comment: BP runs soft with pain meds given) morphine injection 2 mg (COMPLETED) 2 mg, IntraVENous, Once, On Thu04/04/24 at 0605, For 1 dose, If oral and injectable narcotics ordered, use oral first and only use injectable if oral is ineffective or cannot take oral. Do Not give oral and injectable within 1 hour of each other unless specifically ordered. 0615 (Given - Provider: Beatris Juarez RN) morphine injection 4 mg (COMPLETED) 4 mg, IntraVENous, Once, On Thu04/04/24 at 0430, For 1 dose, If oral and IV narcotics ordered, use oral first and only use IV if oral is ineffective or cannot take oral. Do Not give oral and IV within 1 hour of each other unless specifically ordered. 0438 (Given - Provider: Beatris Juarez RN) ondansetron (Zofran) injection 4 mg (COMPLETED) 4 mg, IntraVENous, Once, On Thu04/04/24 at 0430, For 1 dose 0439 (Given - Provider: Beatris Juarez RN) pantoprazole (ProtoNix) EC tablet 40 mg 40 mg, Oral, 2 times daily before meals, First dose on Thu04/04/24 at 0700, Do not crush, chew, or split. 0651 (Given - Provider: Beatris Juarez RN)0722 (Not Given - Provider: Shaan Serra RN - Reason: Other - Comment: error)1530 (Given - Provider: Devika Anaya RN) 0508 (Given - Provider: Seema Caballero RN)1648 (Given - Provider: Ashanti Head RN) 0500 (Given - Provider: Seema Caballero RN)1656 (Given - Provider: Ashanti Head RN) risperiDONE (RisperDAL) tablet 1 mg 1 mg, Oral, 2 times daily, First dose on Thu04/04/24 at 0900, Indications: Tourette's Syndrome 0956 (Given - Provider: Rubin Fields)2020 (Given - Provider: Seema Caballero RN) 0822 (Given - Provider: Ashanti Head, RN)2049 (Given - Provider: Seema Caballero RN) 0927 (Given - Provider: Ashanti Head, RN) thiamine (Vitamin B1) tablet 100 mg 100 mg, Oral, Daily, First dose on Thu04/04/24 at 0900 0957 (Given - Provider: Rubin Fields) 0822 (Given - Provider: Ashanti Head, RN) 0927 (Given - Provider: Ashanti Head, RN) venlafaxine XR (Effexor XR) 24 hr capsule 75 mg 75 mg, Oral, Daily with breakfast, First dose on Thu04/04/24 at 0800, Capsule may be swallowed whole, or may be opened and its contents sprinkled on applesauce if consumed immediately without chewing. Do not crush or chew. 07 (Given - Provider: Shaan Serra, RN) 0822 (Given - Provider: Ashanti Head, RN) 0927 (Given - Provider: Ashanti Head RN) Continuous Medication Order 04/04/2024 04/05/2024 04/06/2024 sodium chloride 0.9 % infusion 250 mL (CANCELED) 250 mL, IntraVENous, Continuous, Starting on Thu04/04/24 at 1100 1106 (New Bag - Provider: Devika Anaya, RN) sodium chloride 0.9 % infusion 250 mL/hr, IntraVENous, Continuous, Starting on Thu04/04/24 at 1600 1549 (New Bag - Provider: Devika Anaya, JOSE GUADALUPE)2017 (New Bag - Provider: Seema Caballero RN) 0033 (New Bag - Provider: Seema Caballero RN)0445 (New Bag - Provider: Seema Caballero RN)0825 (Rate/Dose Verify - Provider: Ashanti Head RN)0830 (New Bag - Provider: Ashanti Head RN)1233 (Rate/Dose Verify - Provider: Ashanti Head RN)1239 (New Bag - Provider: Ashanti Head RN)1648 (New Bag - Provider: Ashanti Head, RN)2047 (New Bag - Provider: Seema Caballero, JOSE GUADALUPE) 0032 (New Bag - Provider: Seema Caballero, JOSE GUADALUPE)0446 (New Bag - Provider: Maryana Griggs RN)0459 (New Bag - Provider: Seema Caballero, JOSE GUADALUPE)0926 (New Bag - Provider: Ashanti Head RN)1304 (Rate/Dose Verify - Provider: Ashanti Head RN)1305 (New Bag - Provider: Ashanti Head, RN)1716 (Rate/Dose Verify - Provider: Ashanti Head, RN) sodium chloride 0.9 % with KCl 20 mEq/L infusion (CANCELED) 100 mL/hr, IntraVENous, Continuous, Starting on Thu04/04/24 at 0635, For 15 hours 0724 (New Bag - Provider: Shaan eSrra RN) PRN Medication Order 04/04/2024 04/05/2024 04/06/2024 acetaminophen (Tylenol) suppository 650 mg(Linked Group 2) 650 mg, Rectal, Every 6 hours PRN, mild pain (1-3), fever, For temp greater than 100.4 F (38 C), Starting on Thu04/04/24 at 0634, Administer if oral route cannot be used. Maximum dose of acetaminophen is 4000 mg from all sources in 24 hours. acetaminophen (Tylenol) tablet 650 mg(Linked Group 2) 650 mg, Oral, Every 6 hours PRN, mild pain (1-3), fever, For temp greater than 100.4 F (38 C), Starting on Thu04/04/24 at 0634, Maximum dose of acetaminophen is 4000 mg from all sources in 24 hours. doxylamine (Unisom) tablet 25 mg 25 mg, Oral, Nightly PRN, sleep, Starting on Thu04/04/24 at 0634 hydrOXYzine pamoate (Vistaril) capsule 50 mg 50 mg, Oral, Every 8 hours PRN, itching, Starting on Thu04/04/24 at 0634 iopamidol (Isovue-370) 76 % injection 75 mL (COMPLETED) 75 mL, IntraVENous, IMG once PRN, contrast, Starting on Thu04/04/24 at 0534, For 1 dose 0534 (Given - Provider: Cielo Loyola RT (R)(CT)) LORazepam (Ativan) injection 1 mg(Linked Group 3) 1 mg, IntraVENous, Every 1 hour PRN, withdrawal, For alcohol withdrawal, Starting on Thu04/04/24 at 0633, For CIWA score 9 or greater. If both oral and intravenous CIWA medications ordered, use intravenous if unable to tolerate oral equivalent. Reassess CIWA one hour after each dose of medication and as needed. For IV doses dilute dose with 1ml NS. 1342 (See Alternative - Provider: Devika Anaya, JOSE GUADALUPE)1740 (See Alternative - Provider: Devika Anaya RN)2203 (See Alternative - Provider: Seema Caballero, JOSE GUADALUPE) 0328 (See Alternative - Provider: Seema Caballero, JOSE GUADALUPE)1227 (See Alternative - Provider: Ashanti Head RN)1651 (Given - Provider: Ashanti Head RN)2059 (See Alternative - Provider: Seema Caballero RN) 1046 (Given - Provider: Ashanti Head RN)1316 (Given - Provider: Ashanti Head RN) LORazepam (Ativan) tablet 1 mg(Linked Group 3) 1 mg, Oral, Every 1 hour PRN, other, For alcohol withdrawal, Starting on Thu04/04/24 at 0633, For CIWA score 9 or greater. Reassess CIWA one hour after each dose of medication and as needed. 1342 (Given - Provider: Devika Anaya RN)1740 (Given - Provider: Devika Anaya RN)2203 (Given - Provider: Seema Caballero RN) 0328 (Given - Provider: Seema Caballero RN)1227 (Given - Provider: Ashanti Head RN)1651 (See Alternative - Provider: Ashanti Head RN)2059 (Given - Provider: Seema Caballero RN) 1046 (See Alternative - Provider: Ashanti Head RN)1316 (See Alternative - Provider: Ashanti Head RN) morphine injection 2 mg 2 mg, IntraVENous, Every 4 hours PRN, severe pain (7-10), Starting on Thu04/04/24 at 0907, If oral and IV narcotics ordered, use oral first and only use IV if oral is ineffective or cannot take oral. Do Not give oral and IV within 1 hour of each other unless specifically ordered. 0925 (Given - Provider: Ju Gordon RN)1342 (Given - Provider: Devika Anaya RN)2100 (Given - Provider: Seema Caballero, JOSE GUADALUPE) 0056 (Given - Provider: Seema aCballero, JOSE GUADALUPE)0505 (Given - Provider: Seema Caballero RN)1227 (Given - Provider: Ashanti Head RN)2049 (Given - Provider: Seema Caballero, JOSE GUADALUPE) 0459 (Given - Provider: Seema Caballero, JOSE GUADALUPE)1316 (Given - Provider: Ashanti Head, JOSE GUADALUPE) naloxone (Narcan) injection 0.4 mg 0.4 mg, IntraVENous, Every 5 min PRN, opioid reversal, respiratory depression, Starting on Thu04/04/24 at 0807, +++ For RR <10, pinpoint pupils, over sedation for opioid reversal - MUST notify material handler floorperson provider immediately after first dose, may give IM or SQ if no IV access +++ ondansetron (Zofran) injection 4 mg(Linked Group 4) 4 mg, IntraVENous, Every 6 hours PRN, nausea, vomiting, Starting on Thu04/04/24 at 0634, 1st Line. Give IV if patient is unable to take orally. If inadequate response within 60 minutes, proceed to next-line agent or contact provider if no further options ordered. 0956 (Given - Provider: Rubin Fields) ondansetron ODT (Zofran-ODT) disintegrating tablet 4 mg(Linked Group 4) 4 mg, Oral, Every 8 hours PRN, nausea, vomiting, Starting on Thu04/04/24 at 0634, 1st Line. If inadequate response within 60 minutes, proceed to next-line agent or contact provider if no further options ordered. Patient should allow tablet to dissolve on tongue. Do not remove from blister pack until just before administering. 0956 (See Alternative - Provider: Rubin Fields) oxyCODONE (Roxicodone) immediate release tablet 5 mg 5 mg, Oral, Every 6 hours PRN, moderate pain (4-6), Starting on Thu04/04/24 at 0907 1115 (Given - Provider: Devika Anaya RN)1737 (Given - Provider: Devika Anaya, JOSE GUADALUPE)2338 (Given - Provider: Seema Caballero, RN) 0822 (Given - Provider: Ashanti Head, RN)1648 (Given - Provider: Ashanti Head, RN) 0225 (Given - Provider: Seema Caballero, RN)0944 (Self Administered Via Pump - Provider: Ashanti Head, RN) polyethylene glycol (PEG) 3350 (Miralax) packet 17 g 17 g, Oral, Daily PRN, constipation, Starting on Thu04/04/24 at 0634, 1st line for treatment of constipation - give scheduled if no bowel movement in past 24 hours. Linked Groups Order Group 1: lidocaine (Xylocaine) 2 % mouth solution 5 mL (COMPLETED)Jump to med 5 mL, Mouth/Throat, Once, On Thu04/04/24 at 0430, For 1 dose, Mix with 20 mL aluminum & magnesium hydroxide-simethicone oral solution and give together (25 mL total) And aluminum & magnesium hydroxide-simethicone (Mylanta) 200-200-20 MG/5ML oral suspension 20 mL (COMPLETED)Jump to med 20 mL, Oral, Once, On Thu04/04/24 at 0430, For 1 dose, Mix with 5 mL viscous lidocaine oral solution and give together (25 mL total). Group 2: acetaminophen (Tylenol) tablet 650 mgJump to med 650 mg, Oral, Every 6 hours PRN, mild pain (1-3), fever, For temp greater than 100.4 F (38 C), Starting on Thu04/04/24 at 0634, Maximum dose of acetaminophen is 4000 mg from all sources in 24 hours. Or acetaminophen (Tylenol) suppository 650 mgJump to med 650 mg, Rectal, Every 6 hours PRN, mild pain (1-3), fever, For temp greater than 100.4 F (38 C), Starting on Thu04/04/24 at 0634, Administer if oral route cannot be used. Maximum dose of acetaminophen is 4000 mg from all sources in 24 hours. Group 3: LORazepam (Ativan) tablet 1 mgJump to med 1 mg, Oral, Every 1 hour PRN, other, For alcohol withdrawal, Starting on Thu04/04/24 at 0633, For CIWA score 9 or greater. Reassess CIWA one hour after each dose of medication and as needed. Or LORazepam (Ativan) injection 1 mgJump to med 1 mg, IntraVENous, Every 1 hour PRN, withdrawal, For alcohol withdrawal, Starting on Thu04/04/24 at 0633, For CIWA score 9 or greater. If both oral and intravenous CIWA medications ordered, use intravenous if unable to tolerate oral equivalent. Reassess CIWA one hour after each dose of medication and as needed. For IV doses dilute dose with 1ml NS. Or LORazepam (Ativan) tablet 2 mg (CANCELED) 2 mg, Oral, Every 1 hour PRN, other, For alcohol withdrawal, Starting on Thu04/04/24 at 0633, For CIWA score 11 to 15. Reassess CIWA one hour after each dose of medication and as needed. Or LORazepam (Ativan) injection 2 mg (CANCELED) 2 mg, IntraVENous, Every 1 hour PRN, withdrawal, For alcohol withdrawal., Starting on Thu04/04/24 at 0633, For CIWA score 11 to 15. If both oral and intravenous CIWA medications ordered, use intravenous if unable to tolerate oral equivalent. Reassess CIWA one hour after each dose of medication and as needed. For IV doses dilute dose with 1ml NS. Or LORazepam (Ativan) tablet 3 mg (CANCELED) 3 mg, Oral, Every 1 hour PRN, other, For alcohol withdrawal, Starting on Thu04/04/24 at 0633, For CIWA score 16 to 20. Reassess CIWA one hour after each dose of medication and as needed. Or LORazepam (Ativan) injection 3 mg (CANCELED) 3 mg, IntraVENous, Every 1 hour PRN, withdrawal, For alcohol withdrawal, Starting on Thu04/04/24 at 0633, For CIWA score 16 to 20. If both oral and intravenous CIWA medications ordered, use intravenous if unable to tolerate oral equivalent. Reassess CIWA one hour after each dose of medication and as needed. For IV doses dilute dose with 1ml NS. Or LORazepam (Ativan) tablet 4 mg (CANCELED) 4 mg, Oral, Every 1 hour PRN, other, For alcohol withdrawal, Starting on Thu04/04/24 at 0633, For CIWA score greater than 20. Reassess CIWA one hour after each dose of medication and as needed. Or LORazepam (Ativan) injection 4 mg (CANCELED) 4 mg, IntraVENous, Every 1 hour PRN, withdrawal, For alcohol withdrawal, Starting on Thu04/04/24 at 0633, For CIWA score greater than 20. If both oral and intravenous CIWA medications ordered, use intravenous if unable to tolerate oral equivalent. Reassess CIWA one hour after each dose of medication and as needed. For IV doses dilute dose with 1ml NS. Group 4: ondansetron ODT (Zofran-ODT) disintegrating tablet 4 mgJump to med 4 mg, Oral, Every 8 hours PRN, nausea, vomiting, Starting on Thu04/04/24 at 0634, 1st Line. If inadequate response within 60 minutes, proceed to next-line agent or contact provider if no further options ordered. Patient should allow tablet to dissolve on tongue. Do not remove from blister pack until just before administering. Or ondansetron (Zofran) injection 4 mgJump to med 4 mg, IntraVENous, Every 6 hours PRN, nausea, vomiting, Starting on Thu04/04/24 at 0634, 1st Line. Give IV if patient is unable to take orally. If inadequate response within 60 minutes, proceed to next-line agent or contact provider if no further options ordered. Scheduled Medication Order 04/18/2024 04/19/2024 04/20/2024 cloNIDine (Catapres) tablet 0.1 mg 0.1 mg, Oral, 2 times daily, First dose on 04/17/24 at 0900 0944 (Given - Provider: Yayo Morataya, JOSE GUADALUPE)2103 (Given - Provider: Kimberly Hamm, RN) 0939 (Given - Provider: Yayo Morataya, JOSE GUADALUPE)2138 (Given - Provider: Taylor Maldonado, RN) 0811 (Given - Provider: Jake Balir, JOSE GUADALUPE) folic acid (Folvite) tablet 1 mg 1 mg, Oral, Daily, First dose on 04/16/24 at 1750 0946 (Given - Provider: Yayo Morataya RN) 0939 (Given - Provider: Yayo Morataya RN) 0811 (Given - Provider: Jake Blair RN) metoprolol succinate XL (Toprol-XL) 24 hr tablet 50 mg 50 mg, Oral, Daily, First dose on 04/17/24 at 0900, Do not crush or chew., Indications: Per [facility] last filled 08/05/2023 for a 15 day supply. 0944 (Given - Provider: Yayo Morataya RN) 0939 (Given - Provider: Yayo Morataya RN) 0811 (Given - Provider: Jake Blair, JOSE GUADALUPE) pantoprazole (ProtoNix) EC tablet 40 mg 40 mg, Oral, 2 times daily before meals, First dose on 04/17/24 at 0700, Do not crush, chew, or split. 0521 (Given - Provider: Josy Adan RN)1723 (Given - Provider: Yayo Morataya RN) 0501 (Given - Provider: Kimberly Hamm, JOSE GUADALUPE)1804 (Given - Provider: Yayo Morataya, JOSE GUADALUPE) 0502 (Given - Provider: Taylor Maldonado, JOSE GUADALUPE)1600 (Canceled Entry - Provider: Automatic Discharge Provider - Comment: Automatically canceled at discontinue of medication order) PHENobarbital tablet 32.4 mg (COMPLETED)(Linked Group 1) 32.4 mg, Oral, Every 4 hours, First dose on Thu04/19/24 at 1300, For 6 doses, Hold for excessive sedation 1312 (Given - Provider: Yayo Morataya, JOSE GUADALUPE)1804 (Given - Provider: Yayo Morataya RN)2138 (Given - Provider: Taylor Maldonado, RN) 0126 (Given - Provider: Taylor Maldonado, RN)0458 (Given - Provider: Taylor Maldonado, RN)0811 (Given - Provider: Jake Blair, RN) PHENobarbital tablet 64.8 mg (COMPLETED)(Linked Group 1) 64.8 mg, Oral, Every 4 hours, First dose on Thu04/18/24 at 1300, For 6 doses, Hold for excessive sedation 1304 (Given - Provider: Yayo oMrataya RN)1722 (Given - Provider: Yayo Morataya RN)2103 (Given - Provider: Kimberly Hamm, JOSE GUADALUPE) 0100 (Given - Provider: Kimberly Hamm RN)0501 (Given - Provider: Kimberly Hamm, JOSE GUADALUPE)0939 (Given - Provider: Yayo Morataya, JOSE GUADALUPE) PHENobarbital tablet 97.2 mg (COMPLETED)(Linked Group 1) 97.2 mg, Oral, Every 4 hours, First dose on Thu04/17/24 at 1215, For 6 doses, Hold for excessive sedation 0043 (Given - Provider: Josy Adan, JOSE GUADALUPE)0521 (Given - Provider: Josy Adan, JOSE GUADALUPE)0944 (Given - Provider: Yayo Morataya, JOSE GUADALUPE) risperiDONE (RisperDAL) tablet 1 mg 1 mg, Oral, 2 times daily, First dose on Thu04/16/24 at 2105, Indications: Tourette's Syndrome 0945 (Given - Provider: Yayo Morataya, JOSE GUADALUPE)2103 (Given - Provider: Kimberly Hamm, JOSE GUADALUPE) 0940 (Given - Provider: Yayo Morataya, JOSE GUADALUPE)2138 (Given - Provider: Taylor Maldonado, RN) 0812 (Given - Provider: Jake Blair, JOSE GUADALUPE) senna-docusate sodium (Senokot-S) 8.6-50 MG tablet 2 tablet 2 tablet, Oral, Daily, First dose on Thu04/19/24 at 1415 1804 (Given - Provider: Yayo Morataya, RN) 0811 (Given - Provider: Jake Blair, RN) thiamine (Vitamin B1) tablet 100 mg 100 mg, Oral, Daily, First dose on 04/17/24 at 0900 0944 (Given - Provider: Yayo Morataya, RN) 0939 (Given - Provider: Yayo Morataya, RN) 0811 (Given - Provider: Jake Blair, RN) venlafaxine XR (Effexor XR) 24 hr capsule 75 mg 75 mg, Oral, Daily with breakfast, First dose on 04/17/24 at 0800, Capsule may be swallowed whole, or may be opened and its contents sprinkled on applesauce if consumed immediately without chewing. Do not crush or chew. 0945 (Given - Provider: Yayo Morataya RN) 0940 (Given - Provider: Yayo Morataya, JOSE GUADALUPE) 0812 (Given - Provider: Jake Blair, JOSE GUADALUPE) Continuous Medication Order 04/18/2024 04/19/2024 04/20/2024 sodium chloride 0.9 % infusion () 100 mL/hr, IntraVENous, Continuous, Starting on 04/17/24 at 0945, For 1 day 0522 (New Bag - Provider: Josy Adan RN)1300 (Stopped - Provider: Yayo Morataya, JOSE GUADALUPE) PRN Medication Order 04/18/2024 04/19/2024 04/20/2024 acetaminophen (Tylenol) suppository 650 mg(Linked Group 2) 650 mg, Rectal, Every 6 hours PRN, mild pain (1-3), Fever GREATER than 100.4 F (38 C), Starting on 04/16/24 at 2103, Administer if oral route cannot be used. acetaminophen (Tylenol) tablet 650 mg(Linked Group 2) 650 mg, Oral, Every 6 hours PRN, mild pain (1-3), Fever GREATER than 100.4 F (38 C), Starting on 04/16/24 at 2103, Maximum dose of acetaminophen is 4000 mg from all sources in 24 hours. albuterol 108 (90 Base) MCG/ACT inhaler 2 puff 2 puff, Inhalation, Every 6 hours PRN, wheezing, shortness of breath, Starting on 04/16/24 at 2103 calcium carbonate (Tums) chewable tablet 500 mg 500 mg, Oral, 3 times daily PRN, heartburn, Starting on 04/20/24 at 1104 gabapentin (Neurontin) capsule 300 mg 300 mg, Oral, Every 8 hours PRN, mild pain (1-3), moderate pain (4-6), neuropathic pain, Starting on 04/16/24 at 2103 guaiFENesin-dextrometho rphan (Robitussin DM) 100-10 MG/5ML syrup 5 mL 5 mL, Oral, Every 4 hours PRN, cough, Starting on 04/16/24 at 2103 HYDROmorphone (Dilaudid) injection 0.5 mg 0.5 mg, IntraVENous, Every 4 hours PRN, moderate pain (4-6), severe pain (7-10), Starting on 04/17/24 at 0050, If oral and IV narcotics ordered, use oral first and only use IV if oral is ineffective or cannot take oral. Do Not give oral and IV within 1 hour of each other unless specifically ordered. 0043 (Given - Provider: Josy Adan, JOSE GUADALUPE)0521 (Given - Provider: Josy Adan, JOSE GUADALUPE)0944 (Given - Provider: Yayo Morataya, JOSE GUADALUPE)1722 (Given - Provider: Yayo Morataya, JOSE GUADALUPE)2141 (Given - Provider: Mary Easton, JOSE GUADALUPE) 0504 (Given - Provider: Kimberly Hamm, RN)1344 (Given - Provider: Yayo Morataya, JOSE GUADALUPE)2028 (Given - Provider: Nevaeh Cortes, JOSE GUADALUPE) 0459 (Given - Provider: Taylor Maldonado, JOSE GUADALUPE)0910 (Given - Provider: Jake Blair, JOSE GUADALUPE) hydrOXYzine pamoate (Vistaril) capsule 50 mg 50 mg, Oral, Every 8 hours PRN, anxiety, Lacrimation, Rhinorrhea, Starting on 04/16/24 at 2103 LORazepam (Ativan) injection 1 mg(Linked Group 3) 1 mg, IntraVENous, Every 1 hour PRN, withdrawal, For alcohol withdrawal, Starting on 04/16/24 at 1806, For CIWA score 8 to 10. If both oral and intravenous CIWA medications ordered, use intravenous if unable to tolerate oral equivalent. Reassess CIWA one hour after each dose of medication and as needed. For IV doses dilute dose with 1ml NS. LORazepam (Ativan) injection 2 mg(Linked Group 3) 2 mg, IntraVENous, Every 1 hour PRN, withdrawal, For alcohol withdrawal., Starting on 04/16/24 at 1806, For CIWA score 11 to 15. If both oral and intravenous CIWA medications ordered, use intravenous if unable to tolerate oral equivalent. Reassess CIWA one hour after each dose of medication and as needed. For IV doses dilute dose with 1ml NS. LORazepam (Ativan) injection 2 mg 2 mg, IntraVENous, Every 4 hours PRN, seizures, Starting on 04/16/24 at 2103, For IV doses dilute dose with 1ml NS. LORazepam (Ativan) injection 3 mg(Linked Group 3) 3 mg, IntraVENous, Every 1 hour PRN, withdrawal, For alcohol withdrawal, Starting on 04/16/24 at 1806, For CIWA score 16 to 20. If both oral and intravenous CIWA medications ordered, use intravenous if unable to tolerate oral equivalent. Reassess CIWA one hour after each dose of medication and as needed. For IV doses dilute dose with 1ml NS. LORazepam (Ativan) injection 4 mg(Linked Group 3) 4 mg, IntraVENous, Every 1 hour PRN, withdrawal, For alcohol withdrawal, Starting on 04/16/24 at 1806, For CIWA score greater than 20. If both oral and intravenous CIWA medications ordered, use intravenous if unable to tolerate oral equivalent. Reassess CIWA one hour after each dose of medication and as needed. For IV doses dilute dose with 1ml NS. LORazepam (Ativan) tablet 1 mg(Linked Group 3) 1 mg, Oral, Every 1 hour PRN, other, For alcohol withdrawal, Starting on 04/16/24 at 1806, For CIWA score 8 to 10. Reassess CIWA one hour after each dose of medication and as needed. LORazepam (Ativan) tablet 2 mg(Linked Group 3) 2 mg, Oral, Every 1 hour PRN, other, For alcohol withdrawal, Starting on 04/16/24 at 1806, For CIWA score 11 to 15. Reassess CIWA one hour after each dose of medication and as needed. LORazepam (Ativan) tablet 3 mg(Linked Group 3) 3 mg, Oral, Every 1 hour PRN, other, For alcohol withdrawal, Starting on Thu04/16/24 at 1806, For CIWA score 16 to 20. Reassess CIWA one hour after each dose of medication and as needed. LORazepam (Ativan) tablet 4 mg(Linked Group 3) 4 mg, Oral, Every 1 hour PRN, other, For alcohol withdrawal, Starting on Thu04/16/24 at 1806, For CIWA score greater than 20. Reassess CIWA one hour after each dose of medication and as needed. naloxone (Narcan) injection 0.4 mg 0.4 mg, IntraVENous, Every 5 min PRN, opioid reversal, respiratory depression, Starting on Thu04/16/24 at 2129, +++ For RR <10, pinpoint pupils, over sedation for opioid reversal - MUST notify material handler floorperson provider immediately after first dose, may give IM or SQ if no IV access +++ ondansetron (Zofran) injection 4 mg 4 mg, IntraVENous, Every 6 hours PRN, nausea, vomiting, Starting on Thu04/17/24 at 0050 oxyCODONE (Roxicodone) immediate release tablet 2.5 mg(Linked Group 4) 2.5 mg, Oral, Every 4 hours PRN, moderate pain (4-6), Starting on Thu04/19/24 at 1456 1807 (See Alternative - Provider: Yayo Morataya RN) 0811 (See Alternative - Provider: Jake Blair, JOSE GUADALUPE) oxyCODONE (Roxicodone) immediate release tablet 5 mg(Linked Group 4) 5 mg, Oral, Every 4 hours PRN, severe pain (7-10), Starting on Thu04/19/24 at 1456 1807 (Given - Provider: Yayo Morataya, JOSE GUADALUPE) 0811 (Given - Provider: Jake Blair, JOSE GUADALUPE) potassium chloride CR (Klor-Con M10) ER tablet 40 mEq 40 mEq, Oral, Daily PRN, Administer daily for serum potassium <3.5, Starting on Thu04/16/24 at 2103, Best given with food and plenty of water to minimize gastric irritation. Do not crush or chew. Linked Groups Order Group 1: PHENobarbital tablet 97.2 mg (COMPLETED)Jump to med 97.2 mg, Oral, Every 4 hours, First dose on Thu04/17/24 at 1215, For 6 doses, Hold for excessive sedation Followed by PHENobarbital tablet 64.8 mg (COMPLETED)Jump to med 64.8 mg, Oral, Every 4 hours, First dose on Thu04/18/24 at 1300, For 6 doses, Hold for excessive sedation Followed by PHENobarbital tablet 32.4 mg (COMPLETED)Jump to med 32.4 mg, Oral, Every 4 hours, First dose on Thu04/19/24 at 1300, For 6 doses, Hold for excessive sedation Followed by PHENobarbital tablet 16.2 mg (CANCELED) 16.2 mg, Oral, Every 4 hours, First dose on Thu04/20/24 at 1300, For 6 doses, Hold for excessive sedation Group 2: acetaminophen (Tylenol) tablet 650 mgJump to med 650 mg, Oral, Every 6 hours PRN, mild pain (1-3), Fever GREATER than 100.4 F (38 C), Starting on 04/16/24 at 2103, Maximum dose of acetaminophen is 4000 mg from all sources in 24 hours. Or acetaminophen (Tylenol) suppository 650 mgJump to med 650 mg, Rectal, Every 6 hours PRN, mild pain (1-3), Fever GREATER than 100.4 F (38 C), Starting on 04/16/24 at 2103, Administer if oral route cannot be used. Group 3: LORazepam (Ativan) tablet 1 mgJump to med 1 mg, Oral, Every 1 hour PRN, other, For alcohol withdrawal, Starting on 04/16/24 at 1806, For CIWA score 8 to 10. Reassess CIWA one hour after each dose of medication and as needed. Or LORazepam (Ativan) injection 1 mgJump to med 1 mg, IntraVENous, Every 1 hour PRN, withdrawal, For alcohol withdrawal, Starting on 04/16/24 at 1806, For CIWA score 8 to 10. If both oral and intravenous CIWA medications ordered, use intravenous if unable to tolerate oral equivalent. Reassess CIWA one hour after each dose of medication and as needed. For IV doses dilute dose with 1ml NS. Or LORazepam (Ativan) tablet 2 mgJump to med 2 mg, Oral, Every 1 hour PRN, other, For alcohol withdrawal, Starting on 04/16/24 at 1806, For CIWA score 11 to 15. Reassess CIWA one hour after each dose of medication and as needed. Or LORazepam (Ativan) injection 2 mgJump to med 2 mg, IntraVENous, Every 1 hour PRN, withdrawal, For alcohol withdrawal., Starting on 04/16/24 at 1806, For CIWA score 11 to 15. If both oral and intravenous CIWA medications ordered, use intravenous if unable to tolerate oral equivalent. Reassess CIWA one hour after each dose of medication and as needed. For IV doses dilute dose with 1ml NS. Or LORazepam (Ativan) tablet 3 mgJump to med 3 mg, Oral, Every 1 hour PRN, other, For alcohol withdrawal, Starting on 04/16/24 at 1806, For CIWA score 16 to 20. Reassess CIWA one hour after each dose of medication and as needed. Or LORazepam (Ativan) injection 3 mgJump to med 3 mg, IntraVENous, Every 1 hour PRN, withdrawal, For alcohol withdrawal, Starting on 04/16/24 at 1806, For CIWA score 16 to 20. If both oral and intravenous CIWA medications ordered, use intravenous if unable to tolerate oral equivalent. Reassess CIWA one hour after each dose of medication and as needed. For IV doses dilute dose with 1ml NS. Or LORazepam (Ativan) tablet 4 mgJump to med 4 mg, Oral, Every 1 hour PRN, other, For alcohol withdrawal, Starting on 04/16/24 at 1806, For CIWA score greater than 20. Reassess CIWA one hour after each dose of medication and as needed. Or LORazepam (Ativan) injection 4 mgJump to med 4 mg, IntraVENous, Every 1 hour PRN, withdrawal, For alcohol withdrawal, Starting on 04/16/24 at 1806, For CIWA score greater than 20. If both oral and intravenous CIWA medications ordered, use intravenous if unable to tolerate oral equivalent. Reassess CIWA one hour after each dose of medication and as needed. For IV doses dilute dose with 1ml NS. Group 4: oxyCODONE (Roxicodone) immediate release tablet 2.5 mgJump to med 2.5 mg, Oral, Every 4 hours PRN, moderate pain (4-6), Starting on Thu04/19/24 at 1456 Or oxyCODONE (Roxicodone) immediate release tablet 5 mgJump to med 5 mg, Oral, Every 4 hours PRN, severe pain (7-10), Starting on Thu04/19/24 at 1456 Scheduled Medication Order 05/05/2024 05/06/2024 05/07/2024 aluminum & magnesium hydroxide-simethicone (Mylanta) 200-200-20 MG/5ML oral suspension 20 mL (COMPLETED)(Linked Group 1) 20 mL, Oral, Once, On 05/07/24 at 1805, For 1 dose, Mix with 5 mL viscous lidocaine oral solution and give together (25 mL total). 1806 (Given - Provid er: Janet Ledezma RN) ketorolac (Toradol) injection 15 mg (COMPLETED) 15 mg, IntraVENous, Once, On 05/07/24 at 1640, For 1 dose 1653 (Given - Provid er: Janet Ledezma RN) lidocaine (Xylocaine) 2 % mouth solution 5 mL (COMPLETED)(Linked Group 1) 5 mL, Mouth/Throat, Once, On 05/07/24 at 1805, For 1 dose, Mix with 20 mL aluminum & magnesium hydroxide-simethicone oral solution and give together (25 mL total) 1806 (Given - Provid er: Janet Ledezma RN) ondansetron (Zofran) injection 4 mg (COMPLETED) 4 mg, IntraVENous, Once, On 05/07/24 at 1640, For 1 dose 1653 (Given - Provid er: Janet Ledezma RN) pantoprazole (ProtoNix) 40 mg in sodium chloride (PF) 0.9 % 10 mL injection (COMPLETED) 40 mg, IntraVENous, Administer over 2 Minutes, Once, On 05/07/24 at 1640, For 1 dose, Reconstitute with 10 ml NS. Vial expires 2 hrs after reconstitution. 1655 (Given - Provid er: Janet Ledezma RN) sodium chloride 0.9 % bolus 1,000 mL (COMPLETED) 1,000 mL, IntraVENous, at 1,000 mL/hr, Administer over 1 Hours, Once, On 05/07/24 at 1640, For 1 dose 1652 (New Bag - Prov ider: Janet Ledezma RN)1755 (Stopped - Provider: Janet Ledezma RN) Linked Groups Order Group 1: lidocaine (Xylocaine) 2 % mouth solution 5 mL (COMPLETED)Jump to med 5 mL, Mouth/Throat, Once, On 05/07/24 at 1805, For 1 dose, Mix with 20 mL aluminum & magnesium hydroxide-simethicone oral solution and give together (25 mL total) And aluminum & magnesium hydroxide-simethicone (Mylanta) 200-200-20 MG/5ML oral suspension 20 mL (COMPLETED)Jump to med 20 mL, Oral, Once, On 05/07/24 at 1805, For 1 dose, Mix with 5 mL viscous lidocaine oral solution and give together (25 mL total). 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 Vial expires 2 hrs after reconstitution. 1555 (Not Given - Pr ovider: Savanna Gore RN - Reason: Patient/family refused) PRN Medication Order 05/20/2024 05/21/2024 05/22/2024 iopamidol (Isovue-370) 76 % injection 75 mL (COMPLETED) 75 mL, IntraVENous, IMG once PRN, contrast, Starting on 05/22/24 at 1613, For 1 dose 1613 (Given - Provid er: Candelaria Smith, RT (R)) Scheduled Medication Order 05/29/2024 05/30/2024 05/31/2024 ketorolac (Toradol) injection 15 mg (COMPLETED) 15 mg, IntraVENous, Once, On 05/30/24 at 2215, For 1 dose 222 (Given - Provider: Clement Perdomo RN) morphine injection 4 mg (COMPLETED) 4 mg, IntraVENous, Once, On 05/30/24 at 2350, For 1 dose, If oral and injectable narcotics ordered, use oral first and only use injectable if oral is ineffective or cannot take oral. Do Not give oral and injectable within 1 hour of each other unless specifically ordered. 2350 (Given - Provider: Clement Perdomo RN) ondansetron (Zofran) injection 4 mg (COMPLETED) 4 mg, IntraVENous, Once, On 05/30/24 at 2350, For 1 dose 235 (Given - Provider: Clement Perdomo RN) Scheduled Medication Order 06/02/2024 06/03/2024 06/04/2024 morphine injection 4 mg (COMPLETED) 4 mg, IntraVENous, Once, On 06/04/24 at 1555, For 1 dose, If oral and injectable narcotics ordered, use oral first and only use injectable if oral is ineffective or cannot take oral. Do Not give oral and injectable within 1 hour of each other unless specifically ordered. 160 (Given - Provid er: MARIAX Fitzgerald) ondansetron (Zofran) injection 4 mg (COMPLETED) 4 mg, IntraVENous, Once, On 06/04/24 at 1555, For 1 dose 1602 (Given - Provid er: MARIXA Fitzgerald) sodium chloride 0.9 % bolus 1,000 mL (COMPLETED) 1,000 mL, IntraVENous, at 1,000 mL/hr, Administer over 1 Hours, Once, On 06/04/24 at 1555, For 1 dose 1601 (New Bag - Prov ider: MARIXA Fitzgerald)1758 (Stopped - Provider: Roro Macias RN) Scheduled Medication Order 06/11/2024 06/12/2024 06/13/2024 famotidine (Pepcid) 20 mg in sodium chloride (PF) 0.9 % 10 mL injection (COMPLETED) 20 mg, IntraVENous, Administer over 2 Minutes, Once, On 06/12/24 at 2210, For 1 dose, IV Push over minimum of 2 minutes - Dilute with 10 mL NS 224 (Given - Provider: Malu Garcia RN) LORazepam (Ativan) injection 1 mg (COMPLETED) 1 mg, IntraVENous, Once, On 06/12/24 at 2235, For 1 dose, For IV doses dilute dose with 1ml NS. 2240 (Given - Provider: Malu Garcia RN) sodium chloride 0.9 % bolus 1,000 mL (COMPLETED) 1,000 mL, IntraVENous, at 1,000 mL/hr, Administer over 1 Hours, Once, On 06/12/24 at 2210, For 1 dose 224 (New Bag - Provider: Diaz Garcia RN)234 (Stopped - Provider: Blank Clement RN) sucralfate (Carafate) tablet 1 g (COMPLETED) 1 g, Oral, Once, On 06/12/24 at 2210, For 1 dose, Give on an empty stomach (1 hr before meals, at bedtime). Separate all other meds by at least 2 hours (exception: antacids may be given only 30 minutes apart). 2240 (Given - Provider: Malu Garcia RN) PRN Medication Order 06/11/2024 06/12/2024 06/13/2024 iopamidol (Isovue-370) 76 % injection 75 mL (COMPLETED) 75 mL, IntraVENous, IMG once PRN, contrast, Starting on 06/12/24 at 2337, For 1 dose 2350 (Given - Provider: Arabella Brennan, RT (R)(CT)) Scheduled Medication Order 06/16/2024 06/17/2024 06/18/2024 HYDROmorphone (Dilaudid) injection 1 mg (COMPLETED) 1 mg, IntraVENous, Once, On 06/18/24 at 1555, For 1 dose 155 (Given - Provid er: Emily Jimenez RN) ondansetron (Zofran) injection 4 mg (COMPLETED) 4 mg, IntraVENous, Once, On 06/18/24 at 1555, For 1 dose 155 (Given - Provid er: Emily Jimenez RN) sodium chloride 0.9 % bolus 1,000 mL (COMPLETED) 1,000 mL, IntraVENous, at 1,000 mL/hr, Administer over 1 Hours, Once, On 06/18/24 at 1555, For 1 dose 1557 (New Bag - Prov ider: Emily Jimenez RN)1657 (Stopped - Provider: Emily Jimenez RN) Scheduled Medication Order 06/18/2024 06/19/2024 06/20/2024 morphine injection 4 mg (COMPLETED) 4 mg, IntraVENous, Once, On 06/19/24 at 2014, For 1 dose, If oral and injectable narcotics ordered, use oral first and only use injectable if oral is ineffective or cannot take oral. Do Not give oral and injectable within 1 hour of each other unless specifically ordered. 2027 (Given - Provider: Padmini Mckenzie RN) morphine injection 4 mg (COMPLETED) 4 mg, IntraVENous, Once, On 06/19/24 at 213, For 1 dose, If oral and injectable narcotics ordered, use oral first and only use injectable if oral is ineffective or cannot take oral. Do Not give oral and injectable within 1 hour of each other unless specifically ordered. 2136 (Given - Provider: Chris Ga RN) ondansetron (Zofran) injection 4 mg (COMPLETED) 4 mg, IntraVENous, Once, On 06/19/24 at 2014, For 1 dose 2024 (Given - Provider: Padmini Mckenzie RN) sodium chloride 0.9 % bolus 1,000 mL (COMPLETED) 1,000 mL, IntraVENous, at 1,000 mL/hr, Administer over 1 Hours, Once, On 06/19/24 at 2014, For 1 dose 2026 (New Bag - Provider: Jeana Mckenzie RN)2136 (Stopped - Provider: Maria T Ga RN) Scheduled Medication Order 06/24/2024 06/25/2024 06/26/2024 famotidine (Pepcid) tablet 20 mg (COMPLETED) 20 mg, Oral, Once, On 06/26/24 at 2014, For 1 dose 2024 (Given - Provid er: Idris Jason RN) morphine injection 4 mg (COMPLETED) 4 mg, IntraVENous, Once, On 06/26/24 at 2014, For 1 dose, If oral and injectable narcotics ordered, use oral first and only use injectable if oral is ineffective or cannot take oral. Do Not give oral and injectable within 1 hour of each other unless specifically ordered. 2024 (Given - Provid er: Idris Jason RN) ondansetron (Zofran) injection 4 mg (COMPLETED) 4 mg, IntraVENous, Once, On 06/26/24 at 2014, For 1 dose 2024 (Given - Provid er: Idris Jason RN) sodium chloride 0.9 % bolus 1,000 mL (COMPLETED) 1,000 mL, IntraVENous, at 1,000 mL/hr, Administer over 1 Hours, Once, On 06/26/24 at 2014, For 1 dose 2024 (New Bag - Prov ider: Idris Jason RN)2204 (Stopped - Provider: Yolanda Ricardo RN) sucralfate (Carafate) tablet 1 g (COMPLETED) 1 g, Oral, Once, On 06/26/24 at 2014, For 1 dose, Give on an empty stomach (1 hr before meals, at bedtime). Separate all other meds by at least 2 hours (exception: antacids may be given only 30 minutes apart). 2024 (Given - Provid er: Idris Jason RN) PRN Medication Order 06/24/2024 06/25/2024 06/26/2024 iopamidol (Isovue-370) 76 % injection 75 mL (COMPLETED) 75 mL, IntraVENous, IMG once PRN, contrast, Starting on 06/26/24 at 2141, For 1 dose 2142 (Given - Provid er: Genet Ojeda, RT (R)(CT)) Scheduled Medication Order 12/06/2024 12/07/2024 12/08/2024 sodium chloride 0.9% (NS) flush 10 mL 10 mL, IntraVENous, Every 12 hours scheduled (2 times per day), First dose on Janay 12/08/24 at 2100 sodium chloride 0.9% (NS) flush 10 mL 10 mL, IntraVENous, Every 12 hours scheduled (2 times per day), First dose on Janay 12/08/24 at 2100, Preprocedure PRN Medication Order 12/06/2024 12/07/2024 12/08/2024 ondansetron (Zofran) injection 4 mg 4 mg, IntraVENous, Once PRN, nausea, vomiting, Starting on Janay 12/08/24 at 1231, For 1 dose, Preprocedure sodium chloride 0.9 % infusion 5-250 mL/hr, IntraVENous, PRN, if patient receiving piggyback infusions and maintenance fluids are not ordered OR KVO fluids to protect IV site / prevent frequent line interruptions/ long duration, Starting on Janay 12/08/24 at 1231, For piggyback infusion, administer at same rate as piggyback for a total of 25 mL. Enter 25 mL into dose field and piggyback rate into rate field of order. If piggyback is infusing at a rate less than 100 mL/hr, enter 25 mL into dose field and 100 mL/hr into rate field of order. For KVO fluids, enter rate of 20 mL/hr or less into rate field of order. sodium chloride 0.9 % infusion 5-250 mL/hr, IntraVENous, PRN, if patient receiving piggyback infusions and maintenance fluids are not ordered OR KVO fluids to protect IV site / prevent frequent line interruptions/ long duration, Starting on Janay 12/08/24 at 1231, Preprocedure, For piggyback infusion, administer at same rate as piggyback for a total of 25 mL. Enter 25 mL into dose field and piggyback rate into rate field of order. If piggyback is infusing at a rate less than 100 mL/hr, enter 25 mL into dose field and 100 mL/hr into rate field of order. For KVO fluids, enter rate of 20 mL/hr or less into rate field of order. 1242 (New Bag - Prov ider: JOSÉ ANTONIO De La Paz CRNA)1250 (Stopped - Provider: JOSÉ ANTONIO De La Paz CRNA) sodium chloride 0.9% (NS) flush 10 mL 10 mL, IntraVENous, PRN, line care, Starting on Janay 12/08/24 at 1231, After every IV line use sodium chloride 0.9% (NS) flush 10 mL 10 mL, IntraVENous, PRN, line care, Starting on Janay 12/08/24 at 1231, Preprocedure, After every IV line use Care Teams (unrecognized sec tion and content) Coating Machine Feeder Relationship Specialty Start Date End Date Neetu Jiménez 1945 [facility] [address] [place] [id number] PCP - General 03/13/18 Coating Machine Feeder Relationship Specialty Start Date End Date Neetu Jiménez [address] [place] [address]., [address] [place] [id number] PCP - General 03/13/18 Coating Machine Feeder Relationship Specialty Start Date End Date Neetu Jiménez [address] [place] [address]., [address] [place] [address] PCP - General 03/13/18 Coating Machine Feeder Relationship Specialty Start Date End Date Neetu Jiménez [facility] [address] [place] [address] PCP - General 03/13/18 Coating Machine Feeder Relationship Specialty Start Date End Date [address] [address] PCP - General 07/10/22 Coating Machine Feeder Relationship Specialty Start Date End Date Tam Hughes DO [address] [place] [address] PCP - General Family Medicine 10/16/23 Coating Machine Feeder Relationship Specialty Start Date End Date Tam Hughes DO [address] [place] [address] PCP - General Family Medicine 10/16/23 Coating Machine Feeder Relationship Specialty Start Date End Date Tam Hughes DO [address] [place] [address] PCP - General Family Medicine 10/16/23 Coating Machine Feeder Relationship Specialty Start Date End Date Tam Hughes DO [address] [place] [address] PCP - General Family Medicine 10/16/23 Coating Machine Feeder Relationship Specialty Start Date End Date Tam Hughes DO [address] [facility] [place] [id number] PCP - General Family Medicine 10/16/23 Coating Machine Feeder Relationship Specialty Start Date End Date Tam Hughes DO [address] [place] [address] PCP - General Family Medicine 10/16/23 Coating Machine Feeder Relationship Specialty Start Date End Date Tam Hughes DO [address] [place] [address] PCP - General Family Medicine 10/16/23 Coating Machine Feeder Relationship Specialty Start Date End Date Tam Hughes DO [address] [place] [address] PCP - General Family Medicine 10/16/23 Coating Machine Feeder Relationship Specialty Start Date End Date Neetu Jiménez 1945 [facility], [address] [place] [id number] PCP - General 03/13/18 Coating Machine Feeder Relationship Specialty Start Date End Date Tam Hughes DO [address] [place] [address] PCP - General Family Medicine 10/16/23 Coating Machine Feeder Relationship Specialty Start Date End Date Tam Hughes DO [address] [place] [address] PCP - General Family Medicine 10/16/23 Coating Machine Feeder Relationship Specialty Start Date End Date Tam Hughes DO [address] [place] [address] PCP - General Family Medicine 10/16/23 Coating Machine Feeder Relationship Specialty Start Date End Date Tam Hughes DO [address] [place] [address] PCP - General Family Medicine 10/16/23 Coating Machine Feeder Relationship Specialty Start Date End Date Tam Hughes DO [address] [place] [address] PCP - General Family Medicine 10/16/23 Coating Machine Feeder Relationship Specialty Start Date End Date Tam Hughes DO [address] [place] [address] PCP - General Family Medicine 10/16/23 Coating Machine Feeder Relationship Specialty Start Date End Date Tam Hughes DO [address] [place] [address] PCP - General Family Medicine 10/16/23 Coating Machine Feeder Relationship Specialty Start Date End Date Tam Hughes DO [address] [place] [address] PCP - General Family Medicine 10/16/23 Coating Machine Feeder Relationship Specialty Start Date End Date Tam Hughes DO [address] [place] [address] PCP - General Family Medicine 10/16/23 Coating Machine Feeder Relationship Specialty Start Date End Date Tam Hughes DO [address] [place] [address] PCP - General Family Medicine 10/16/23 Coating Machine Feeder Relationship Specialty Start Date End Date Tam Hughes DO [address] [facility] [place] [address] PCP - General Family Medicine 10/16/23 Coating Machine Feeder Relationship Specialty Start Date End Date Tam Hughes DO [address] [facility] [place] [address] PCP - General Family Medicine 10/16/23 Coating Machine Feeder Relationship Specialty Start Date End Date Tam Hughes DO [address] [facility] [place] [address] PCP - General Family Medicine 10/16/23 Coating Machine Feeder Relationship Specialty Start Date End Date Tam Hughes DO [address] [place] [address] PCP - General Family Medicine 10/16/23 Coating Machine Feeder Relationship Specialty Start Date End Date Tam Hughes DO [address] [facility] [place] [address] PCP - General Family Medicine 10/16/23 Coating Machine Feeder Relationship Specialty Start Date End Date Tam Hughes DO [address] [facility] [place] [address] PCP - General Family Medicine 10/16/23 Coating Machine Feeder Relationship Specialty Start Date End Date Tam Hughes DO [address] [place] [address] PCP - General Family Medicine 10/16/23 Coating Machine Feeder Relationship Specialty Start Date End Date Tam Hughes DO [address] [facility] [place] [address] PCP - General Family Medicine 10/16/23 Coating Machine Feeder Relationship Specialty Start Date End Date Tam Hughes DO [address] [facility] [place] [address] PCP - General Family Medicine 10/16/23 Coating Machine Feeder Relationship Specialty Start Date End Date Tam Hughes DO [address] [place] [address] PCP - General Family Medicine 10/16/23 Coating Machine Feeder Relationship Specialty Start Date End Date Tam Hughes DO [address] [place] [address] PCP - General Family Medicine 10/16/23 Coating Machine Feeder Relationship Specialty Start Date End Date Tam Hughes DO [address] [place] [address] PCP - General Family Medicine 10/16/23 Coating Machine Feeder Relationship Specialty Start Date End Date Tam Hughes DO [address] [facility] [place] [address] PCP - General Family Medicine 10/16/23 Coating Machine Feeder Relationship Specialty Start Date End Date Tam Hughes DO [address] [facility] [place] [address] PCP - General Family Medicine 10/16/23 Coating Machine Feeder Relationship Specialty Start Date End Date Tam Hughes DO [address] [facility] [place] [address] PCP - General Family Medicine 10/16/23 Coating Machine Feeder Relationship Specialty Start Date End Date Tam Hughes DO [address] [facility] [place] [address] PCP - General Family Medicine 10/16/23 Coating Machine Feeder Relationship Specialty Start Date End Date Tam Hughes DO [address] [facility] [place] [place] [address] PCP - General Family Medicine 10/16/23 Coating Machine Feeder Relationship Specialty Start Date End Date Tam Hughes DO [address] [place] [address] PCP - General Family Medicine 10/16/23 Coating Machine Feeder Relationship Specialty Start Date End Date Tam Hughes DO [address] [place] [address] PCP - General Family Medicine 10/16/23 Coating Machine Feeder Relationship Specialty Start Date End Date Tam Hughes DO [address] [place] [address] PCP - General Family Medicine 10/16/23 Coating Machine Feeder Relationship Specialty Start Date End Date Tam Hughes DO [address] [place] [address] PCP - General Family Medicine 10/16/23 Coating Machine Feeder Relationship Specialty Start Date End Date Tam Hughes DO [address] [place] [address] PCP - General Family Medicine 10/16/23 Coating Machine Feeder Relationship Specialty Start Date End Date Tam Hughes DO [address] [place] [address] PCP - General Family Medicine 10/16/23 Coating Machine Feeder Relationship Specialty Start Date End Date Tam Hughes DO [address] [place] [address] PCP - General Family Medicine 10/16/23 Coating Machine Feeder Relationship Specialty Start Date End Date Tam Hughes DO [address] [place] [address] PCP - General Family Medicine 10/16/23 Team Status: Active Member Role/Relationship Status Dates No Primary Care Physician Primary care physician Activ e Team Status: Inactive Member Role/Relationship Status Dates No Primary Care Physician Primary care physician Activ e Start: November 30, 2024 End: December 01, 2024 Dr. Amilcar Dumont , DO Emergency Department Physician Active Start: November 30, 2024 End: December 01, 2024 Dr. Lázaro Brush , DO Admitting physician Active Start: November 30, 2024 End: December 01, 2024 Dr. Lázaro Brush , DO Nurse Practitioner Active Start: November 30, 2024 End: December 01, 2024 Dr. Joe Mcmillan , DO Attending physician Active Start: November 30, 2024 End: December 01, 2024 Team Status: Active Member Role/Relationship Status Dates No Primary Care Physician Primary care physician Activ e Start: December 01, 2024 Dr. Amilcar Dumont , DO Emergency Department Physician Active Start: December 01, 2024 Dr. Lázaro Brush , DO Admitting physician Active Start: December 01, 2024 Dr. Lázaro Brush , DO Nurse Practitioner Active Start: December 01, 2024 Dr. Joe Mcmillan , DO Attending physician Active Start: December 01, 2024 Dr. Joe Mcmillan , DO Nurse Practitioner Active Start: December 01, 2024 Coating Machine Feeder Relationship Specialty Start Date End Date Tam Hughes DO [address] [place] [address] PCP - General Family Medicine 10/16/23 FOR RECORDS PERTAINING TO PATIENTS WHO ARE OR HAVE BEEN ENROLLED IN A CHEMICAL DEPENDENCY/SUBSTANCEABUSE PROGRAM, SOME INFORMATION MAY BE OMITTED. This clinical summary was aggregated from multiple sources. Caution should be exercised in using it in the provision of clinical care. This summary normalizes information from multiple sources, and as a consequence, information in this document may materially change the coding, format and clinical context of patient data. In addition, data may be omitted in some cases. CLINICAL DECISIONS SHOULD BE BASED ON THE PRIMARY CLINICAL RECORDS. [employer] provides no warranty or guarantee of the accuracy or completeness of information in this document.
[2025-02-05 19:45] VITALS: BP 131/82; PULSE 88; RESP 18; O2SAT 96
[2025-02-05 19:45] LABS: Hematocrit 40.9 % (40-54); Hemoglobin 13.8 g/dL (13.0-16.5); Immature Granulocytes Count 0.020 X10^3/uL (0.0-0.0); Mean Corp Hgb Conc 33.7 g/dL (32-36); Mean Corpuscular Volume 85.6 fL (80-94); Mean Platelet Vol. 10.3 fl (6.2-12.0); NRBC Flagged by Analyzer 0 % (0-5); Platelet Count 139 K/mm3 (150-450); RBC Distribution Width CV 14.6 % (11.6-14.6); RBC Distribution Width SD 45.7 fl (35.1-43.9); Red Blood Count 4.78 M/mm3 (4.6-6.2); White Blood Count 7.7 K/mm3 (4.4-11.0)
[2025-02-05 20:00] LABS: AST(SGOT) 151 U/L (<=37); Alanine Aminotransfer ALT/SGPT 41 U/L (<=46); Albumin, Serum 4.4 g/dL (3.5-5.0); Alkaline Phosphatase 205 U/L (40-129); Anion Gap 17 (7-18); BUN 3 mg/dL (4-19); BUN/Creat Ratio 4.6 RATIO (10-20); Bilirubin, Direct 1.41 mg/dL (0.00-0.30); Calcium,Total 9.5 mg/dL (7.6-11.0); Carbon Dioxide 25.3 mmol/L (20.0-29.0); Chloride 94 mmol/L (96-106); Estimated Creatinine Clearance 164.05 ml/min (50-250); Globulin 4.1 g/dL (2.2-4.2); Glucose 108 mg/dL (70-99); Lipase 7 U/L (13-75); Magnesium 2.0 mg/dL (1.5-2.2); Potassium 3.2 mmol/L (3.5-5.1)
[2025-02-05 20:01] LABS: Alcohol, Blood (Medical)-Serum 188.0 mg/dL (<=10.0)
[2025-02-05 20:15] VITALS: BP 131/76; PULSE 89; RESP 16; TEMP 36.9; O2SAT 98
[2025-02-05 20:26] LABS: Barbiturate Urine NEGATIVE (< 200 ng/mL); Benzodiazepine Urine NEGATIVE (< 200 ng/mL); PCP Urine NEGATIVE (< 25 ng/mL); THC Urine PRESUMPTIVE POSITIVE (< 50 ng/mL)
[2025-02-05 21:00] VITALS: BP 131/83; PULSE 91; RESP 18; O2SAT 95
--- OUTSIDE RECORDS SUMMARY | 2025-02-05 21:11 | XMS RPT_ITS | CCD ---
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 Fitzgerald Emergency Departmen t Physician de [...] mg docusate sodium 50 mg / sennosides, fci 8.6 mg oral tablet (20 sources) Start: [...] 50 MG 24 hr tablet Indications: Per [facility] last filled 08/05/2023 for a 15 [...] acamprosate (Campral) EC tab let 666 mg [id number] 200 actuat albuter ol 0.09 mg/actuat metered [...] 20 mg/ml oral suspension (2 sources) Uncompetitive L-xsaban-F-aspartat e Receptor Antagonist, Sigma-1 Agonist Start: 04-16-2024 [...] 1 dose 0.5 ml heparin sodium, porcine 97767 unt/ml prefilled syringe (2 sources) Unfractionated Heparin, [...] give if having a seizure. Please notify cotton ginner helper attending if utilized., Starting on Thu08/11/23 at [...] (PriLOSEC) [address] capsule Indications: Per [place] [facility] last filled 07/30/2023 for a 30 [...] (Luminal) tablet 97.2 mg polyethylene glycol 3350 71306 mg powder for oral solution (16 sources) [...] (2 times per day), First dose on [facility] 12/08/24 at 2100 Start: 12-08-2024 End: 12-08-2024 10 mL, IntraVENous, Every 12 hours scheduled (2 times per day), First dose on [facility] 12/08/24 at 2100, Preprocedure Start: 12-08-2024 End: 12-08-2024 10 mL, IntraVENous, Every 12 hours scheduled (2 times per day), First dose on [facility] 12/08/24 at 2100 Start: 12-08-2024 End: 12-08-2024 take 100 mL intravenously every hour as needed, then take 20 mL intravenously every hour as needed 5-250 mL/hr, IntraVENous, PRN, if patient receiving piggyback infusions and maintenance fluids are not ordered OR KVO fluids to protect IV site / prevent frequent line interruptions/ long duration, Starting on [facility] 12/08/24 at 1231, Preprocedure, For piggyback [...] mL, IntraVENous, PRN, line care, Starting on [facility] 12/08/24 at 1231, Preprocedure, After every [...] current use of drug therapy; Translations: [Other long-term (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] 10-21-2023 Episodic Other and [...] [facility] Facility 36on 12-16-2024 36 Normal [facility] 36on 12-13-2024 36 Normal [facility] [id number] 12-08-2024 [id number] Normal [facility] [id number] 12-08-2024 [id number] Request from [facility] for setting up transport home. WC van set up in [employer], claimed by [employer] at 3pm. Normal [facility] Anesthesia Noteon 12-08-2024 Anesthesia Note Normal [facility] Anesthesia Note Normal [facility] Nursing Noteon 12-08-2024 Nursing Note Normal [facility] Op Noteon 12-08-2024 Op Note Normal [facility] 36on 12-01-2024 36 Normal [facility] H AND P Exam - [facility] 11-30-2024 H&P Exam - Hospitalist [facility] Medical Records Department [address] [place] [address] H P Exam - Hospitalist 11/30/24 0022 MR#: [id number] Acct: [id number] Name: RORO VALDIVIA Rep #: [id number] : 1985 39 From: Lázaro Brush DO PCP: Care Physician,No Primary Status:ADM [place]: [place] AB027-5 [facility] - General General Date of Admission: 11/30/24 [...] and GERD; on pantoprazole who presents to [facility] ER requesting EtOH detox. Mr. Valdivia [...] is expected to extend beyond 2 midnights. [facility] Medical History Anxiety Liver fibrosis Cirrhosis of [...] Pressure Source (more content not included)... Normal [facility] Absolute lymphocyte countOrd ered By: Amilcar Dumont on 11-29-2024 Lymphocytes Auto (Unsp spec) [#/Vol] 1.62 10*3/uL 0.83-4.51 [facility] Absolute neutrophil countOrd ered By: Amilcar Dumont on 11-29-2024 Neutrophils (Bld) [#/Vol] 3.6 10*3/uL 2.0-7.7 [facility] Alcohol, Blood (Medical)-Ser umon 11-29-2024 SERUM ETOH 33.5 mg/dL High <=10.0 [facility] Comment on above: Result Comment: This test is for medical purposes only. The legal definition of intoxication varies according to local law. Performed By: #### L 505.5000, L500.4050, L501.9100, L100.0100 #### [facility] Laboratory [address] [place], [address] Amphetamine detection with 1 000 ng/mL as cutoffOrdered By: Amilcar Dumont on 11-29-2024 Amphetamines Screen method >1000 ng/mL Ql (U) Negative < 200 ng/mL [facility] Anion gap in Serum or Plasma Ordered By: Amilcar Dumont on 11-29-2024 Anion gap [Moles/Vol] 14 mmol/L 5- [facility] Automated lymphocyte count a s percentage of total leukocytesOrdered By: Amilcar Dmuont on 11-29-2024 Lymphocytes/100 WBC Auto (Unsp spec) 28.2 % - [facility] BUN/creatinine ratioOrdered By: Amilcar Dumont on 11-29-2024 Urea nitrogen/Creatinine [Mass ratio] 4.3 mg/mg Low - [facility] Comment on above: Previous reported re sult: 4.1 RATIOEdited by: ARMANDO on 11/29/24:8 AMENDED REPORT 11/29/242247 BUN/CRE previously reported as: 4.1 L RATIO Basophil percentageOrdered B y: Amilcar Dumont on 11-29-2024 Basophils/100 WBC (Bld) 0.3 % 0-1 [facility] Bilirubin, totalOrdered By: Amilcar Dumont on 11-29-2024 Bilirubin [Mass/Vol] 1.48 mg/dL High 0.00-1.30 [facility] CBC W/Diff, Automatedon 11-10 Absolute Lymph 1.62 X10 3/uL Normal 0.83-4.51 [facility] Comment on above: Performed By: #### L 505.5000, L500.4050, L501.9100, L100.0100 #### [facility] Laboratory [address] [place], [address] Absolute Neut 3.6 X10 3/uL Normal 2.0-7.7 [facility] Comment on above: Performed By: #### L 505.5000, L500.4050, L501.9100, L100.0100 #### [facility] Laboratory [address] [place], [address] Basophils/100 WBC (Bld) 0.3 % Normal 0-1 [facility] Comment on above: Performed By: #### L 505.5000, L500.4050, L501.9100, L100.0100 #### [facility] Laboratory [address] [place], [address] Eosinophils/100 WBC (Bld) 0.5 % Normal 0-5 [facility] Comment on above: Performed By: #### L 505.5000, L500.4050, L501.9100, L100.0100 #### [facility] Laboratory [address] [place], [address] Erythrocyte distribution width (RBC) [Ratio] 14.1 % Normal 11.6-14.6 [facility] Comment on above: Performed By: #### L 505.5000, L500.4050, L501.9100, L100.0100 #### [facility] Laboratory [address] [place], [address] Hematocrit (Bld) [Volume fraction] 37.0 % Low 40-54 [facility] Comment on above: Performed By: #### L 505.5000, L500.4050, L501.9100, L100.0100 #### [facility] [address] [place], [address] Hemoglobin (Bld) [Mass/Vol] 12.5 g/dL Low 13.0-16.5 [facility] Comment on above: Performed By: #### L 505.5000, L500.4050, L501.9100, L100.0100 #### [facility] [address] [place], [address] IG% 0.200 Normal 0.0-0.9 [facility] Comment on above: Result Comment: IG% - Immature Granulocytes (promyelocytes, myelocytes and metamyelocytes) > 1% indicates that a LEFT SHIFT is Present. Performed By: #### L 505.5000, L500.4050, L501.9100, L100.0100 #### [facility] [address] [place], [address] Lymphocytes/100 WBC (Bld) 28.2 % Normal 19-41 [facility] Comment on above: Performed By: #### L 505.5000, L500.4050, L501.9100, L100.0100 #### [facility] [address] [place], [address] MCH (RBC) [Entitic mass] 30.2 pg Normal 27.0-32.0 [facility] Comment on above: Performed By: #### L 505.5000, L500.4050, L501.9100, L100.0100 #### [facility] [address] [place], [address] MCHC (RBC) [Mass/Vol] 33.8 g/dL Normal 32-36 [facility] Comment on above: Performed By: #### L 505.5000, L500.4050, L501.9100, L100.0100 #### [facility] [address] [place], [address] MCV (RBC) [Entitic vol] 89.4 fL Normal 80-94 [facility] Comment on above: Performed By: #### L 505.5000, L500.4050, L501.9100, L100.0100 #### [facility] [address] [place], [address] Monocytes/100 WBC (Bld) 7.5 % Normal 0-10 [facility] Comment on above: Performed By: #### L 505.5000, L500.4050, L501.9100, L100.0100 #### [facility] [address] [place], [address] Neutrophils/100 WBC (Bld) 63.3 % Normal 47-70 [facility] Comment on above: Performed By: #### L 505.5000, L500.4050, L501.9100, L100.0100 #### [facility] [address] [place], [address] Nucleated RBC (Bld) [#/Vol] 0 10*3/uL Normal 0-5 [facility] Comment on above: Performed By: #### L 505.5000, L500.4050, L501.9100, L100.0100 #### [facility] [address] [place], [address] Platelet mean volume (Bld) [Entitic vol] 10.1 fL Normal 6.2-12.0 [facility] Comment on above: Performed By: #### L 505.5000, L500.4050, L501.9100, L100.0100 #### [facility] [address] [place], [address] Platelets (Bld) [#/Vol] 141 10*3/uL Low 150-450 [facility] Comment on above: Performed By: #### L 505.5000, L500.4050, L501.9100, L100.0100 #### [facility] [address] [place], [address] RBC (Bld) [#/Vol] 4.14 10*6/uL Low 4.6-6.2 [facility] Comment on above: Performed By: #### L 505.5000, L500.4050, L501.9100, L100.0100 #### [facility] [address] [place], [address] RDW SD 45.7 fl High 35.1-43.9 [facility] Comment on above: Performed By: #### L 505.5000, L500.4050, L501.9100, L100.0100 #### [facility] Laboratory [address] [place], [address] WBC (Bld) [#/Vol] 5.8 10*3/uL Normal 4.4-11.0 [facility] Comment on above: Performed By: #### L 505.5000, L500.4050, L501.9100, L100.0100 #### [facility] [address] [place], [address] Carbon dioxide, total [Moles /volume] in Central venous bloodOrdered By: Amilcar Dumont on 11-29-2024 CO2 [Moles/Vol] 23.8 mmol/L 21.0-32.0 [facility] Chloride assayOrdered By: Edu Dumont on 11-29-2024 Chloride [Moles/Vol] 100 mmol/L 98-108 [facility] Comprehensive Metabolic Prof ilon 11-29-2024 BUN/CRE 4.3 RATIO Low - [facility] Comment on above: Result Comment: AMENDED REPORT 11/29/24 2245 BUN/CRE previously reported as: 4.1 L RATIO Performed By: #### L 505.5000, L500.4050, L501.9100, L100.0100 #### [facility] [address] [place], [address] Emergency Department Summary on 11-29-2024 Emergency Department Summary [facility] Medical Records Department [address] [place] [address] Emergency Department Summary 11/29/24 MR#: [id number] Acct: [id number] Name: RORO VALDIVIA Rep #: [id number] : 1985 39 From: Amilcar Dumont DO [...] on the (more content not included)... Normal [facility] Eosinophil percentageOrdered By: Amilcar Dumont on 11-29-2024 Eosinophils/100 WBC (Bld) 0.5 % 0-5 [facility] Erythrocyte distribution wid th ratioOrdered By: [facility] Hospital[facility] on 11-29-2024 Erythrocyte distribution width (RBC) [Ratio] 14.1 % 11.6-14.6 [facility] Erythrocyte distribution wid th standard deviationOrdered By: [facility] Hospitalvivian Talbert on 11-29-2024 Erythrocyte distribution width (RBC) [Ratio] 45.7 fl High 35.1-43.9 [facility] Glomerular filtration rate ( GFR) estimation/1.73 sq m using serum, plasma, or whole bOrdered By: Amilcarzahra Dumont on 11-29-2024 GFR/1.73 sq M.predicted among non-blacks MDRD (S/P/Bld) [Vol rate/Area] 130 mL/min/{1.73_m2} >60 [facility] Comment on above: mL/min/1.73m2 CKD-EP I Creatinine Equation (2020) Hematocrit Auto (Bld) [Volum e fraction]Ordered By: Amilcar Dumont on 11-29-2024 Hematocrit (Bld) [Volume fraction] 37.0 % Low 40-54 [facility] Hemoglobin measurementOrdere d By: Amilcar Dumont on 11-29-2024 Hemoglobin (Bld) [Mass/Vol] 12.5 g/dL Low 13.0-16.5 [facility] Immature granulocytes/100 WB C Auto (Bld)Ordered By: Amilcar Dumont on 11-29-2024 Immature granulocytes/100 WBC (Bld) 0.200 % 0.0-0.9 [facility] Comment on above: IG% - Immature Granu locytes (promyelocytes, myelocytes and metamyelocytes) > 1% indicates that a LEFT SHIFT is Present. International normalized rat io (INR) calculationOrdered By: Amilcar Dumont on 11-29-2024 INR Coag (Bld) [Relative time] 1.6 {INR} [facility] Laboratory - Chemistry and C hemistry - challengeOrdered By: Amilcar Dumont on 11-29-2024 AST [Catalytic activity/Vol] 109 U/L High <38 [facility] MCV (mean corpuscular volume ) determinationOrdered By: Amilcar Dumont on 11-29-2024 MCV (RBC) [Entitic vol] 89.4 fL 80-94 [facility] Mean corpuscular hemoglobin (MCH) determinationOrdered By: Amilcar Dumont on 11-29-2024 MCH (RBC) [Entitic mass] 30.2 pg 27.0-32.0 [facility] Mean corpuscular hemoglobin concentration (MCHC) determinationOrdered By: Amilcar Dumont on 11-29-2024 MCHC (RBC) [Mass/Vol] 33.8 g/dL 32-36 [facility] Mean platelet volume determi nationOrdered By: Amilcar Dumont on 11-29-2024 Platelet mean volume (Bld) [Entitic vol] 10.1 fL 6.2-12.0 [facility] Monocyte percentageOrdered B y: Amilcar Dumont on 11-29-2024 Monocytes/100 WBC (Bld) 7.5 % 0-10 [facility] Neutrophil percentageOrdered By: Amilcar Dumont on 11-29-2024 Neutrophils/100 WBC (Bld) 63.3 % 47-70 [facility] No Panel InformationOrdered By: Amilcar Dumont on 11-29-2024 Urine Buprenorphine Qualitative Negative < 200 ng/mL [facility] Urine Oxycodone Screen Negative < 100 ng/mL [facility] Nucleated red blood cell per centageOrdered By: Amilcar Dumont on 11-29-2024 Nucleated RBC/100 WBC (Bld) [Ratio] 0 % 0-5 [facility] Platelet countOrdered By: Edu Dumont on 11-29-2024 Platelets (Bld) [#/Vol] 141 10*3/uL Low 150-450 [facility] Potassium measurement (mass/ volume)Ordered By: Amilcar Dumont on 11-29-2024 Potassium (Unsp spec) [Mass/Vol] 4.7 mmol/L 3.3-5.1 [facility] Prothrombin Time w/INRon INR Coag (PPP) [Relative time] 1.6 {INR} Normal [facility] Comment on above: Performed By: #### L 300.3900 #### [facility] Laboratory [address] [place], [place], [id number] (064) PT Coag (PPP) [Time] 19.7 s High 11.7-14.9 [facility] Comment on above: Performed By: #### L 300.3900 #### [facility] [address] [place], [place], [id number] Prothrombin timeOrdered By: Amilcar Dumont on 11-29-2024 PT Coag (PPP) [Time] 19.7 s High 11.7-14.9 [facility] Quantitative urine opiates m easurementOrdered By: Amilcar Dumont on 11-29-2024 Opiates Ql (U) Negative < 300 ng/mL [facility] RBC Auto (Bld) [#/Vol]Ordere d By: Amilcar Dumont on 11-29-2024 RBC (Bld) [#/Vol] 4.14 10*6/uL Low 4.6-6.2 [facility] Screening urine fentanyl liza surementOrdered By: Amilcar Dumont on 11-29-2024 fentaNYL Screen Ql (U) Negative <5 ng/mL [facility] Comment on above: CONFIRMATORY TESTING FOR ALL [...] must be ordered separately. Use test mnemonic: [facility] Serum creatinine measurement (mass/volume)Ordered By: Amilcar Dumont on 11-29-2024 Creatinine [Mass/Vol] 0.55 mg/dL Low 0.70-1.20 [facility] Serum globulin measurementOr dered By: Amilcar Dumont on 11-29-2024 Globulin (S) [Mass/Vol] 4.3 g/dL High 2.2-4.2 [facility] Serum glucose measurement (m ass/volume)Ordered By: Amilcar Dumont on 11-29-2024 Glucose [Mass/Vol] 87 mg/dL 70-99 [facility] Serum or plasma alanine martinez otransferase (ALT) measurementOrdered By: Amilcar Dumont on 11-29-2024 ALT [Catalytic activity/Vol] 33 U/L <47 [facility] Serum or plasma albumin valerie urement (mass/volume)Ordered By: Amilcar Talbert on 11-29-2024 Albumin [Mass/Vol] 3.8 g/dL 3.5-5.0 [facility] Serum or plasma albumin/glob ulin mass ratioOrdered By: Amilcar Dumont on 11-29-2024 Albumin/Globulin [Mass ratio] 0.9 {ratio} 0.9-2.4 [facility] Serum or plasma alkaline juliocesar sphatase measurementOrdered By: Amlicar Dumont on 11-29-2024 ALP [Catalytic activity/Vol] 261 U/L High 40-129 [facility] Serum or plasma calcium valerie urement (mass/volume)Ordered By: Amilcar Talbert on 11-29-2024 Calcium [Mass/Vol] 9.7 mg/dL 7.6-11.0 [facility] Serum or plasma ethanol valerie urement (mass/volume)Ordered By: Amilcar Talbert on 11-29-2024 Ethanol [Mass/Vol] 33.5 mg/dL High <10.1 [facility] Comment on above: This test is for med ical purposes only. The legal definition of intoxication varies according to local law. Serum or plasma urea nitroge n measurement (mass/volume)Ordered By: Amilcar Dumont on 11-29-2024 Urea nitrogen [Mass/Vol] 2 mg/dL Low 4-19 [facility] Sodium levelOrdered By: Kenneth Dumont on 11-29-2024 Sodium [Moles/Vol] 138 mmol/L 133-145 [facility] Total proteinOrdered By: Christiano Dumont on 11-29-2024 Protein [Mass/Vol] 8.1 g/dL 5.9-8.4 [facility] Urine Drug Screen (VISTA)on 11-29-2024 AMPHETAMINES Negative Normal <1000 ng/mL [facility] Comment on above: Performed By: #### L 505.5000, L500.4050, L501.9100, L100.0100 #### [facility] Laboratory [address] [place], [place], [facility] BARBITIURATES Negative Normal < 200 ng/mL [facility] Comment on above: Performed By: #### L 505.5000, L500.4050, L501.9100, L100.0100 #### [facility] [address] [facility] [address] BENZODIAZIPINE Negative Normal < 200 ng/mL [facility] Comment on above: Performed By: #### L 505.5000, L500.4050, L501.9100, L100.0100 #### [facility] [address] [place], [address] BUP Ur Drug Scr Negative Normal < 200 ng/mL [facility] Comment on above: Performed By: #### L 505.5000, L500.4050, L501.9100, L100.0100 #### [facility] [address] [place], [address] COCAINE Negative Normal < 300 ng/mL [facility] Comment on above: Performed By: #### L 505.5000, L500.4050, L501.9100, L100.0100 #### [facility] [address] [place], [address] Fentanyl Negative Normal <5 ng/mL [facility] Comment on above: Result Comment: CONF [...] #### L 505.5000, L500.4050, L501.9100, L100.0100 #### [facility] [address] [place], [address] METHADONE Positive Normal < 300 ng/mL [facility] Comment on above: Result Comment: If c onfirmation testing is needed, a separate order will be required to send out testing to the reference laboratory. Performed By: #### L 505.5000, L500.4050, L501.9100, L100.0100 #### [facility] [address] [place], [address] OPIATES Negative Normal < 300 ng/mL [facility] Comment on above: Performed By: #### L 505.5000, L500.4050, L501.9100, L100.0100 #### [facility] [address] [place], [address] OXYCODONE Negative Normal < 100 ng/mL [facility] Comment on above: Performed By: #### L 505.5000, L500.4050, L501.9100, L100.0100 #### [facility] [address] [place], [address] PCP Negative Normal < 25 ng/mL [facility] Comment on above: Performed By: #### L 505.5000, L500.4050, L501.9100, L100.0100 #### [facility] [address] [place], [address] THC Positive Normal < 50 ng/mL [facility] Comment on above: Result Comment: If c onfirmation testing is needed, a separate order will be required to send out testing to the reference laboratory. Performed By: #### L 505.5000, L500.4050, L501.9100, L100.0100 #### [facility] [address] [place], [address] Urine benzodiazepine levelOr dered By: Amilcar Dumont on 11-29-2024 Benzodiazepines Ql (U) Negative < 200 ng/mL [facility] Urine cocaine levelOrdered B y: Amilcar Dumont on 11-29-2024 Cocaine Ql (U) Negative < 300 ng/mL [facility] Urine ewnwl-[id number]-qkhjlggvbqwrgn abinol (THC) measurementOrdered By: Amilcar Talbert on 11-29-2024 Cannabinoids Screen Ql (U) Positive < 50 ng/mL [facility] Comment on above: If confirmation test ing is needed, a separate order will be required to send out testing to the reference laboratory. Urine phencyclidine (PCP) de tectionOrdered By: Amilcar Dumont on 11-29-2024 Phencyclidine Ql (U) Negative < 25 ng/mL [facility] White blood cell (WBC) count Ordered By: Amilcar Dumont on 11-29-2024 WBC (Bld) [#/Vol] 5.8 10*3/uL 4.4-11.0 [facility] 36on 11-24-2024 36 Normal [facility] 36on 11-15-2024 36 I called patient to relay new order information, no answer, left voicemail to let him know new bloodwork ordered, advised to call office if he does have questions. [facility] Progress Noteon 11-15-2024 Progress Note [facility] Progress Note I saw and evaluated the patient, participating in the erickson portions of the service. I reviewed the resident?s note. I agree with the resident?s findings and plan. Vamshi Moncada, ERVIN [facility] 29on 11-10-2024 29 Addended by: GUILLERMO MERRILL on: 11/10/2024 03:31 PM Modules accepted: Orders [facility] Progress Noteon 11-10-2024 Progress Note Hep A positive. Most likely from previous resolved infection or immunity. But will check to see if recent infection. [facility] 36on 11-09-2024 36 Called back patient and spoke with him. Patient is concerned about abnormal hepatitis A result and would like to know if any additional testing needs done or what to do. Advised will route to provider for review [facility] 36on 11-08-2024 36 Pt called and lvm fo r office frustrated as he keeps missing our calls and can never get a hold of our office back. Thanks [facility] 36 Called patient, no answer, left voicemail relaying results. Provided office number if patient has any questions or concerns. [facility] 36 [facility] 36on 11-07-2024 36 Ok from anesthesia standpoint per wanda loyola [facility] AFP Tumor Markeron AFP.tumor marker [Mass/Vol] 4.4 ng/mL [facility] - 6.1 ng/mL [facility] Comment on above: This test was performed using the Lina Pax chemiluminescent method. Values obtained from different assay methods cannot be used interchangeably. AFP levels, regardless of value, should not be interpreted as absolute evidence of the presence or absence of disease. Ceruloplasminon 11-07-2024 Ceruloplasmin [Mass/Vol] 23 mg/dL 14 - 30 mg/dL [facility] No Panel Informationon 11-07 [facility] Progress Noteon 11-07-2024 Progress Note INR is slightly increased, but improved since last time. Normal [facility] Progress Note Liver numbers are go ing down. AFP tumor marker is negative. Normal [facility] Comprehensive metabolic 1998 panelon 11-05-2024 Albumin [Mass/Vol] 3.6 g/dL 3.6 - 5.1 g/dL [facility] Albumin/Globulin [Mass ratio] 1 {ratio} [facility] ALP [Catalytic activity/Vol] 147 U/L High 36 - 130 U/L [facility] ALT [Catalytic activity/Vol] 20 U/L 9 - 46 U/L [facility] AST [Catalytic activity/Vol] 58 U/L High 10 - 40 U/L [facility] Bilirubin [Mass/Vol] 1.1 mg/dL 0.2 - 1 .2 mg/dL [facility] Calcium [Mass/Vol] 8.9 mg/dL 8.6 - 10. 3 mg/dL [facility] Chloride [Moles/Vol] 103 mmol/L 98 - 11 0 mmol/L [facility] CO2 [Moles/Vol] 30 mmol/L 20 - 32 mmol/L [facility] Creatinine [Mass/Vol] 0.55 mg/dL Low 0.60 - 1.26 mg/dL [facility] GFR/1.73 sq M.predicted among non-blacks MDRD (S/P/Bld) [Vol rate/Area] 130 mL/min/{1.73_m2} > OR = 60 mL/min/1.73m 2 [facility] Globulin (S) [Mass/Vol] 3.5 g/dL [facility] Glucose [Mass/Vol] 101 mg/dL High 65 - 99 mg/dL [facility] Comment on above: Fasting reference interval For someone without known diabetes, a glucose value between 100 and 125 mg/dL is consistent with prediabetes and should be confirmed with a follow-up test. Potassium [Moles/Vol] 4.5 mmol/L 3.5 - 5.3 mmol/L [facility] Protein [Mass/Vol] 7.1 g/dL 6.1 - 8.1 g/dL [facility] Sodium [Moles/Vol] 139 mmol/L 135 - 146 mmol/L [facility] Urea nitrogen [Mass/Vol] 5 mg/dL Low 7 - 25 mg/dL [facility] Urea nitrogen/Creatinine [Mass ratio] 9 mg/mg [facility] Hepatitis A Antibody, Totalo n 11-05-2024 HAV Ab IA Ql (S) Reactive Abnormal NON-REACTIVE [facility] Comment on above: For additional information, please refer to http://[employer]Tru-Friends/faq/NCJ973 (This link is being provided for informational/ educational purposes only.) Interpretation and review of laboratory results Abnormal [facility] No Panel Informationon 11-05 Interpretation and review of laboratory results Abnormal [facility] PT Coag (Bld) [Time]on 11-05 INR Coag (PPP) [Relative time] 1.3 {INR} High [facility] Comment on above: Reference Range 0.9 -1.1 Moderate-intensity Warfarin Therapy 2.0-3.0 Higher-intensity Warfarin Therapy 3.0-4.0 PT Coag (PPP) [Time] 13 s High [facility] Comment on above: For additional infor mation, please refer to http://[employer]X-IO.Nerveda/faq/EFE132 (This link is being provided for informational/ educational purposes only.) 36on 11-01-2024 36 Normal [facility] 36 Normal [facility] 36 Normal [facility] 37on 11-01-2024 37 Normal [facility] Progress Noteon 11-01-2024 Progress Note Normal [facility] 36on 10-28-2024 36 Normal [facility] 36on 10-18-2024 36 Pt has an appointmen t on 11/15 will schedule at that time. Normal [facility] 36on 10-17-2024 36 LOWER PARTIAL, FULL UPPER AND RUBIN REMOVAL APPROVED. PLEASE SCHEDULE. Normal [facility] COMPREHENSIVE METABOLIC PANE Rylan 10-12-2024 Albumin [Mass/Vol] 3.0 g/dL Low 3.5-5.0 [facility] Comment on above: Performed By: #### L AB17 ####Scheduler Conveyor: JUDITH MARKHAM ([id number])[facility] ([facility])[address] [place] [address] [place] ALP [Catalytic activity/Vol] 224 U/L High 40-150 [facility] Comment on above: Performed By: #### L AB17 ####Scheduler Conveyor: JUDITH MARKHAM ([id number])[facility] ([facility])[address] ALT [Catalytic activity/Vol] 34 U/L Normal <40 [facility] Comment on above: Performed By: #### L AB17 ####Scheduler Conveyor: JUDITH MARKHAM ([phone])[facility] ([facility])[address] [place] [address] Anion gap [Moles/Vol] 7 mmol/L Normal 3-13 [facility] Comment on above: Performed By: #### L AB17 ####Scheduler Conveyor: JUDITH MARKHAM ([id number])[facility] ([facility])[address] [place] [address] AST [Catalytic activity/Vol] 122 U/L High <34 [facility] Comment on above: Performed By: #### L AB17 ####Scheduler Conveyor: JUDITH MARKHAM ([phone])[facility] ([facility])[address] [place] [address] Bilirubin [Mass/Vol] 1.7 mg/dL High <1.2 [facility] Comment on above: Performed By: #### L AB17 ####Scheduler Conveyor: JUDITH MARKHAM ([phone])[facility])[address] [place] [address] Calcium [Mass/Vol] 9.2 mg/dL Normal 8.4-10.2 [facility] Comment on above: Performed By: #### L AB17 ####Scheduler Conveyor: JUDITH MARKHAM ([id number])[facility])[address] [place] [place] [address] [place] Chloride [Moles/Vol] 100 mmol/L Normal 98-107 [facility] Comment on above: Performed By: #### L AB17 ####Scheduler Conveyor: JUDITH MARKHAM ([id number])[facility])[address] [place] [address] [place] CO2 [Moles/Vol] 28 mmol/L Normal 22-29 [facility] Comment on above: Performed By: #### L AB17 ####Scheduler Conveyor: JUDITH MARKHAM ([id number])[facility] ([facility])[address] [place] [address] Creatinine [Mass/Vol] 0.64 mg/dL Low 0.72-1.25 [facility] Comment on above: Performed By: #### L AB17 ####Scheduler Conveyor: JUDITH MARKHAM ([phone])[facility])[address] [place] [address] GLOMERULAR FILTRATION RATE ML/MIN/1.73 SQ M.PREDICTED >90.0 Normal >60.0 [facility] Comment on above: Result Comment: Calc ulation based on the Chronic Kidney Disease Epidemiology Collaboration (CKD-EPI) equation refit without adjustment for race Performed By: #### L AB17 ####Scheduler Conveyor: JUDITH MARKHAM ([id number])[facility] ([facility])[address] [place] [place] [address] [place] Glucose [Mass/Vol] 77 mg/dL Normal 74-100 [facility] Comment on above: Performed By: #### L AB17 ####Scheduler Conveyor: JUDITH MARKHAM ([id number])[facility])[address] [place] [address] [place] Potassium [Moles/Vol] 4.1 mmol/L Normal 3.5-5.1 [facility] Comment on above: Result Comment: [facility] potassium values may be up to 0.5 mmol/L lower than serum values. Performed By: #### L AB17 ####Scheduler Conveyor: JUDITH MARKHAM ([phone])[facility] ([facility])[address] [place] [address] Protein [Mass/Vol] 7.4 g/dL Normal 6.4-8.3 [facility] Comment on above: Performed By: #### L AB17 ####Scheduler Conveyor: JUDITH MARKHAM ([id number])[facility] ([facility])[address] [place] [address] Sodium [Moles/Vol] 135 mmol/L Low 136-145 [facility] Comment on above: Performed By: #### L AB17 ####Scheduler Conveyor: JUDITH MARKAHM ([id number])[facility] ([facility])[address] [place] [address] Urea nitrogen [Mass/Vol] 5 mg/dL Low 8-21 [facility] Comment on above: Performed By: #### L AB17 ####Scheduler Conveyor: JUDITH KENTONTu ([id number])[facility] ([facility])[address] [place] [address] Progress Noteon 10-12-2024 Progress Note Will review at scheduled follow up. [facility] Progress Noteon 10-04-2024 Progress Note [facility] 29on 10-03-2024 29 Addended by: GUILLERMO MERRILL on: 10/03/2024 05:01 PM Modules accepted: Orders [facility] 36on 10-03-2024 36 Pt lvm requesting callback. Spoke with Pt he is requesting call to go over Fibroscan results prior to his appt. Pt is very worried about his results. Normal [facility] 36 Patient called and l for office trying to get results of his liver test. Upon review Guillermo had advised patient results will be gone over in November during his OV. Thanks [facility] Progress Noteon 10-03-2024 Progress Note Call [facility]. Went over fibroscan. INR ordered. Will also order CMP. Continue with appointment 11/01/2024. Normal [facility] [id number] (BKR QUE [facility])on 2024 [facility] ALPHA 1 ANTITRYPSIN 253 mg/dL High 83-199 [facility] Comment on above: Result Comment: Test Performed by [employer] [facility],[address] [place] [address] [id number] Merida M.D., Ph.D., Director of [phone], CLIA [id number] Performed By: #### L AB810, [id number], [id number] ####[facility] (AMDBEAKER)[address] [place], [place] REMINGTON (ANTINUCLEAR ANTIBODIES) on 2024 REMINGTON PATTERN Normal [facility] Comment on above: Performed By: #### L AB147, [id number] ####Scheduler Conveyor: JUDITH MARKHAM ([id number])[facility] ([facility])[address] [place] [address] [place] REMINGTON TITER <1:80 Normal <1:80 [facility] Comment on above: Result Comment: PIEDAD Echeverria COMMENTS:TESTED BY INDIRECT IMMUNOFLUORESCENCE ASSAY (IFA) Performed By: #### L AB147, [id number] ####Scheduler Conveyor: JUDITH MARKHAM ([id number])[facility] ([facility])[address] [place] [place] [address] [place] ANTIMITOCHONDRIAL ANTIBODYon 2024 [facility] MITOCHONDRIAL AB SCREEN Negative Normal Negative [facility] Comment on above: Result Comment: Test Performed by Mana Au,[facility],[address] [place] [address] [id number] Merida M.D., Ph.D., Director of [phone], CLIA [id number] Performed By: #### L AB810, [id number], [id number] ####[facility] (AMDBEAKER)[address] [place], [place] CELIAC PANELon 2024 GLIADIN IGA ANTIBODIES 3.1 U/ml Normal <15.0 [facility] Comment on above: Performed By: #### L AB147, [id number] ####Scheduler Conveyor: JUDITH MARKHAM ([id number])[facility])[address] [place] [address] [place] GLIADIN IGG SERUM 0.8 U/ml Normal <15.0 [facility] Comment on above: Result Comment: PIEDAD Echeverria COMMENTS:TTG Interpretive Information:Results of 15 Units/mL or greater = POSITIVEResults Less than 15 Units/mL = NEGATIVEDeam Gliadin Peptide Interpretive Information:Results of 15 Units/mL or greater = POSITIVEResults Less than 15 Units/mL = NEGATIVE Performed By: #### L AB147, [id number] ####Scheduler Conveyor: JUDITH MARHKAM ([phone])[facility])[address] [place] [address] TISSUE TRANSGLUTAMINASE, IGA <0.5 Normal <15.0 [facility] Comment on above: Performed By: #### L AB147, [id number] ####Scheduler Conveyor: JUDITH MARKHAM ([id number])[facility])[address] [place] [address] TISSUE TRANSGLUTAMINASE, IGG 1.1 U/mL Normal <15.0 [facility] Comment on above: Performed By: #### L AB147, [id number] ####Scheduler Conveyor: JUDITH MARKHAM ([id number])[facility])[address] [place] [address] FERRITINon 2024 Ferritin [Mass/Vol] 108 ng/mL Normal 22-275 [facility] Comment on above: Result Comment: PIEDAD Echeverria COMMENTS:Ferritin levels below 10 ng/mL have been reported as indicative of iron deficiency anemia. Performed By: #### L AB68 ####Scheduler Conveyor: JUDITH MARKHAM ([id number])[address] Ferritin [Mass/Vol]on 2024 Interpretation and review of laboratory results Normal [facility] Ferritin levels belo w 10 ng/mL have been reported as indicative of iron deficiency anemia. [facility] HBV surface Ab IA Qnon 09-30 Interpretation: <8.0 Non-Reactive 8.0-11.9 Equivocal >= 12.0 Ab Detected Note: If an equivocal result is interpreted, an antibody status is unable to be determined. Collect new specimen if clinically indicated. [facility] HBV surface Ag IA Qlon 09-30 Interpretation and review of laboratory results Normal [facility] HCV Ab IA Qlon 2024 Interpretation and review of laboratory results Normal [facility] HEPATITIS B CORE ANTIBODY, T OTAL - BKR [facility]on 2024 [facility] HEPATITIS B CORE AB TOTAL Non-Reactive Normal Nonreactive [facility] Comment on above: Result Comment: Test Performed by Mana Au,[facility],[address] [place] [address] [id number] Merida M.D., Ph.D., Director of [phone], [facility] [id number] Performed By: #### L [id number] ####[facility] (AMDBEAKER)[address] [place] [address] [place] HEPATITIS B SURFACE ANTIBODY on 2024 HEPATITIS B VIRUS SURFACE AB <8.0 Normal [facility] Comment on above: Result Comment: ORDE R COMMENTS:Interpretation:<8.0 Non-Reactive8.0-11.9 Equivocal>= 12.0 Ab DetectedNote: If an equivocal result is interpreted, an antibody status is unable to be determined. Collect new specimen if clinically indicated. Performed By: #### L [id number], [id number], [id number] ####Scheduler Conveyor: JUDTIH MARKHAM ([id number])[address] HEPATITIS B SURFACE ANTIGENo n 2024 HEPATITIS B VIRUS SURFACE AG Not detected Normal Not Detected [facility] Comment on above: Performed By: #### L AB868, [id number], [id number] ####Scheduler Conveyor: JUDITH MARKHAM ([phone])[facility])[address] [place] [address] HEPATITIS C ANTIBODYon 09-30 HCV Ab IA Ql Not detected Normal Not Detected [facility] Comment on above: Result Comment: Lynda ents with DETECTED Hepatitis C Ab results should have a new specimen submitted for supplemental testing with a Hepatitis C Quantitative RNA assay (viral load), if clinically indicated. Performed By: #### L AB868, [id number], [id number] ####Scheduler Conveyor: JUDITH MARKHAM ([phone])[facility])[address] [place] [address] LIVER-KIDNEY MICROSOME 1 ABo n 2024 LIVER-KID MICROSOME-1 AB, IGG BY BERENICE 2.2 U Normal 0.0-24.9 [facility] Comment on above: Result Comment: REFE [...] presence of autoimmune hepatitis, type 2.Performed By: [employer] [place], [place] [address]Hejbrkqqkl Director: Guillermo Burroughs MD, PhDCLIA Number: [id number] Performed By: #### L [id number] ####[facility] ([facility])[address] [place] [address] [place] Laboratory - Chemistry and C hemistry - challengeon 2024 Ferritin [Mass/Vol] 108 ng/mL 22 - 275 ng/mL [facility] Laboratory - Coagulationon 0 2024 PT Coag (Bld) [Time] 14.6 s High 9.0 - 12.0 s [facility] - Microbiology an d Antimicrobial susceptibilityon 2024 HBV surface Ab IA Qn mIU/mL [facility] HBV surface Ag IA Ql Not detected Not Detected [facility] HCV Ab IA Ql Not detected Not Detected [facility] Comment on above: Patients with DETECT ED Hepatitis C Ab results should have a new specimen submitted for supplemental testing with a Hepatitis C Quantitative RNA assay (viral load), if clinically indicated. No Panel Informationon 09-30 [facility] Considering the patient's history of alcohol [...] flowing out of your liver (biliary obstruction) [facility] Table formatting fro m the original result was not included. Imaging Result: [facility] Infectious Disease Patient: Gerson De La Fuente [...] procedure well. Results: Median=75 kPa IQR/med=0 % IPN=928 dB/m Indu Mota RN, 2024 1:24 PM Diagnosis/Problems: Diagnosis Plan 1. Elevated liver enzymes Fibroscan 2 hx of alcohol abuse [facility] PROTHROMBIN TIMEon INR Coag (PPP) [Relative time] 1.4 {INR} High 0.9-1.1 [facility] Comment on above: Result Comment: Mason mmended [...] Myocardial Infarction Performed By: #### L AB320 ####Scheduler Conveyor: JUDITH MARKHAM ([id number])[facility] ([facility])[address] [place] [address] PT Coag (PPP) [Time] 14.6 s High 9.0-12.0 [facility] Comment on above: Performed By: #### L AB320 ####Scheduler Conveyor: JUDITH MARKHAM ([id number])[facility] ([facility])[address] [place] [address] PT Coag (Bld) [Time]on 09-30 INR Coag (PPP) [Relative time] 1.4 {INR} High 0.9 - 1.1 [facility] Comment on above: Recommended Anticoag ulant [...] Interpretation and review of laboratory results Abnormal [facility] Progress Noteon 2024 Progress Note Will review Fibrosca n with Roro 11/15/2024. Recommend to complete blood work as ordered by Eric Hartley. Normal [facility] Progress Note Normal [facility] SMOOTH MUSCLE ANTIBODY WITH REFLEX (BKR [facility])on 2024 [facility] SMOOTH MUSCLE AB SCREEN Negative Normal NEGATIVE [facility] Comment on above: Result Comment: Test performed by [facility] [address] [place] [address] [employer] Director: Ankita Oscar MD,PHD,MBATest Reported by Mana Au,[facility],[address] [place], [place] [address]Svpvfjldavonte Merida M.D., Ph.D., Director of [phone], ABDOULAYE [id number] Performed By: #### L AB810, [id number], [id number] ####[facility] (AMDBEAKER)[address] [place] [facility] 08-31-2024 36 Pt has appointment o n 09/07 will schedule at that time. [facility] 08-29-2024 36 UPPER DENTURE APPROV ED. PLEASE SCHEDULE [facility] Progress Noteon 08-24-2024 Progress Note [facility] 08-23-2024 29 Addended by: VANCE LIZAMA on: 2024 02:44 PM Modules accepted: Orders [facility] 29 Addended by: VANCE LIZAMA on: 2024 02:43 PM Modules accepted: Orders [facility] 08-23-2024 37 --blood work to be completed order given --fibroscan faxing order to ID dept --complete alcohol abstinence is recommended --diet recommendations printed for review --follow up in 2 months [facility] Progress Noteon 08-23-2024 Progress Note [facility] 08-22-2024 36 Patient called back in, sooner opening no longer available. Rescheduled for 11/15 at 10:30 and placed on cancellation list. Patient stated this appointment is too far out, will call with next opening we get. [facility] 36 Lmtcb to get 10/05 appointment rescheduled due to the provider not being in the office. [facility] 08-15-2024 36 Pt scheduled [facility] 08-09-2024 36 [facility] 08-05-2024 36 Patient prescribed medication by Last appt 03/30/24 No future appts [facility] 08-04-2024 36 Last visit 03/30/24 Needs scheduled with new PGY3 [facility] 08-01-2024 36 Patient called offic e to r/s OV. Patient was offered next soonest OV, 10/05. Patient agreed, placed on cancellation list for sooner appointment. Thanks [facility] 07-25-2024 36 Called and lvm for patient to contact office to r/s OV due to provider OOO. Sent mPura message as well for patient to respond to. Thanks [facility] BASIC METABOLIC PANELon 06-10 Anion gap [Moles/Vol] 12 mmol/L Normal 3-13 [facility] Comment on above: Performed By: #### L AB15, [id number] ####Scheduler Conveyor: SHENA GUERIN ([phone])[facility] [place] ([facility])[address] Calcium [Mass/Vol] 9.9 mg/dL Normal 8.4-10.2 [facility] Comment on above: Performed By: #### L AB15, [id number] ####Scheduler Conveyor: SHENA GUERIN ([id number])[facility] [place] ([facility])[address] Chloride [Moles/Vol] 102 mmol/L Normal 98-107 [facility] Comment on above: Performed By: #### L AB15, [id number] ####Scheduler Conveyor: SHENA GUERIN ([id number])[facility] [place] ([facility])[address] CO2 [Moles/Vol] 25 mmol/L Normal 22-29 [facility] Comment on above: Performed By: #### L AB15, [id number] ####Scheduler Conveyor: SHENA GUERIN ([id number])[facility] [place] ([facility])[address] Creatinine [Mass/Vol] 0.74 mg/dL Normal 0.72-1.25 [facility] Comment on above: Performed By: #### L AB15, [id number] ####Scheduler Conveyor: SHENA GUERIN ([id number])[facility] ([facility])[address] GLOMERULAR FILTRATION RATE ML/MIN/1.73 SQ M.PREDICTED >90.0 Normal >60.0 [facility] Comment on above: Result Comment: Calc ulation based on the Chronic Kidney Disease Epidemiology Collaboration (CKD-EPI) equation refit without adjustment for race Performed By: #### L AB15, [id number] ####Scheduler Conveyor: SHENA GUERIN ([id number])[facility] ([facility])[address] Glucose [Mass/Vol] 109 mg/dL High 74-100 [facility] Comment on above: Performed By: #### L AB15, [id number] ####Scheduler Conveyor: SHENA GUERIN ([id number])[facility] [facility] ([facility] Potassium [Moles/Vol] 4.0 mmol/L Normal 3.5-5.1 [facility] Comment on above: Result Comment: [facility] potassium values may be up to 0.5 mmol/L lower than serum values. Performed By: #### L AB15, [id number] ####Scheduler Conveyor: SHENA GUERIN ([id number])[facility] (SBHLAB)[address] Sodium [Moles/Vol] 139 mmol/L Normal 136-145 [facility] Comment on above: Performed By: #### L AB15, [id number] ####Scheduler Conveyor: SHENA GUERIN ([id number])[facility] (SBHLAB)[address] [place] [address] [place] Urea nitrogen [Mass/Vol] 6 mg/dL Low 8-21 [facility] Comment on above: Performed By: #### L AB15, [id number] ####Scheduler Conveyor: SHENA GUERIN ([id number])[facility] (SBHLAB)[address] [place] [address] [place] C-REACTIVE PROTEINon 025 CRP [Mass/Vol] 45.5 mg/L High <5.0 [facility] Comment on above: Performed By: #### L AB15, [id number] ####Scheduler Conveyor: SHENA GUERIN ([id number])[facility] (SBHLAB)[address] [place] [address] CBC WITH AUTO DIFFERENTIALon 07-02-2024 Basophils (Bld) [#/Vol] 0.1 10*3/uL Normal 0.0-0.2 [facility] Comment on above: Performed By: #### L [id number], [id number] ####Scheduler Conveyor: SHENA GUERIN ([id number])[facility] [place] (SBHLAB)[address] [place] [address] Basophils/100 WBC (Bld) 0.7 % Normal 0.0-2.0 [facility] Comment on above: Performed By: #### L AB322, [id number] ####Scheduler Conveyor: SHENA GUERIN ([phone])[facility] (SBHLAB)[address] [place] [address] Eosinophils (Bld) [#/Vol] 0.4 10*3/uL Normal 0.0-0.5 [facility] Comment on above: Performed By: #### L AB322, [id number] ####Scheduler Conveyor: SHENA GUERIN ([phone])[facility] (SBAB)[address] [place] [address] Eosinophils/100 WBC (Bld) 6.0 % Normal 0.0-6.0 [facility] Comment on above: Performed By: #### L AB322, [id number] ####Scheduler Conveyor: SHENA GUERIN ([id number])[facility] (SBAB)[address] [place] [address] Erythrocyte distribution width (RBC) [Ratio] 13.3 % Normal 11.5-15.0 [facility] Comment on above: Performed By: #### L AB322, [id number] ####Scheduler Conveyor: SHENA GUERIN ([id number])[facility] (SBHLAB)[address] Hematocrit (Bld) [Volume fraction] 39.6 % Low 40.0-52.0 [facility] Comment on above: Performed By: #### L AB322, [id number] ####Scheduler Conveyor: SHENA GUERIN ([id number])[facility] (HLAB)[address] Hemoglobin (Bld) [Mass/Vol] 13.2 g/dL Normal 13.0-18.0 [facility] Comment on above: Performed By: #### L AB322, [id number] ####Scheduler Conveyor: SHENA GUERIN ([phone])[facility] IMMATURE GRANS % 0.3 % Normal 0.0-2.0 [facility] Comment on above: Performed By: #### L [id number], [id number] ####Scheduler Conveyor: SHENA GUERIN ([id number])[facility] IMMATURE GRANS ABSOLUTE 0.0 10*3/uL Normal <0.1 [facility] Comment on above: Performed By: #### L AB322, [id number] ####Scheduler Conveyor: SHENA GUERIN ([id number])[facility] Lymphocytes (Bld) [#/Vol] 2.4 10*3/uL Normal 1.0-4.3 [facility] Comment on above: Performed By: #### L AB322, [id number] ####Scheduler Conveyor: SHENA GUERIN ([id number])[facility] [place] [address] [place] Lymphocytes/100 WBC (Bld) 34.8 % Normal 15.0-45.0 [facility] Comment on above: Performed By: #### L AB322, [id number] ####Scheduler Conveyor: SHENA GUERIN ([phone])[facility] (SBHLAB)[address] MCH (RBC) [Entitic mass] 30.3 pg Normal 26.0-34.0 [facility] Comment on above: Performed By: #### L AB322, [id number] ####Scheduler Conveyor: SHENA GUERIN ([id number])[facility] [place] (SBHLAB)[address] MCHC 33.3 % Normal 30.5-36.0 [facility] Comment on above: Performed By: #### L AB322, [id number] ####Scheduler Conveyor: SHENA GUERIN ([phone])[facility] CENTERKyler NEUMANNN (SBHLAB)[address] MCV (RBC) [Entitic vol] 91.0 fL Normal 77.0-99.0 [facility] Comment on above: Performed By: #### L AB322, [id number] ####Scheduler Conveyor: SHENA GUERIN ([id number])[facility] CENTERKyler [place] (SBHLAB)[address] Monocytes (Bld) [#/Vol] 0.6 10*3/uL Normal 0.0-0.9 [facility] Comment on above: Performed By: #### L AB322, [id number] ####Scheduler Conveyor: SHENA GUERIN ([id number])[facility] CENTERKyler [place] (SBHLAB)[address] [place] [address] [place] Monocytes/100 WBC (Bld) 8.5 % Normal 5.0-13.0 [facility] Comment on above: Performed By: #### L AB322, [id number] ####Scheduler Conveyor: SHENA GUERIN ([id number])[facility] [place] (SBHLAB)[address] NEUTROPHILS ABSOLUTE 3.4 10*3/uL Normal 1.8-7.5 [facility] Comment on above: Performed By: #### L AB322, [id number] ####Scheduler Conveyor: SHENA GUERIN ([phone])[facility] [place] (SBHLAB)[address] Neutrophils/100 WBC (Bld) 49.7 % Normal 38.0-82.0 [facility] Comment on above: Performed By: #### L AB322, [id number] ####Scheduler Conveyor: SHENA GUERIN ([phone])[facility] [place] (SBHLAB)[address] NRBC 0.0 /100 WBCs Normal 0.0-2.0 [facility] Comment on above: Performed By: #### L AB322, [id number] ####Scheduler Conveyor: SHENA GUERIN ([id number])[facility] [place] (SBHLAB)[address] Platelet mean volume (Bld) [Entitic vol] 10.0 fL Normal 9.0-12.7 [facility] Comment on above: Performed By: #### L AB322, [id number] ####Scheduler Conveyor: SHENA GUERIN ([id number])[facility] [place] (SBHLAB)[address] Platelets (Bld) [#/Vol] 295 10*3/uL Normal 140-440 [facility] Comment on above: Performed By: #### L AB322, [id number] ####Scheduler Conveyor: SHENA GUERIN ([id number])[facility] [place] (SBHLAB)[address] [place] [address] [place] RBC (Bld) [#/Vol] 4.35 10*6/uL Low 4.40-5.90 [facility] Comment on above: Performed By: #### L AB322, [id number] ####Scheduler Conveyor: SHENA GUERIN ([id number])[facility] [place] (SBHLAB)[address] [place] [address] [place] WBC (Bld) [#/Vol] 6.8 10*3/uL Normal 3.6-10.7 [facility] Comment on above: Performed By: #### L AB322, [id number] ####Scheduler Conveyor: SHENA GUERIN ([id number])[facility] CENTERKyler [place] (SBHLAB)[address] CERVICAL SPINE WO IV CONT RASTon 07-02-2024 CT CERVICAL SPINE WO IV CONTRAST Normal [facility] CT HEAD WO IV CONTRASTon CT HEAD WO IV CONTRAST Normal [facility] ED Nursing Noteon 07-02-2024 ED Nursing Note 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 Per MRI they will be getting pt shortly. Normal [facility] ED Nursing Note Patient provided wit h a bag and a cup for his partials prior to MRI scan. Normal [facility] ED Provider Noteon ED Provider Note Normal [facility] SEDIMENTATION RATE, AUTOMATE Don 07-02-2024 SEDIMENTATION RATE, ERYTHROCYTE 50 mm/hr High 0-10 [facility] Comment on above: Performed By: #### L AB322, [id number] ####Scheduler Conveyor: SHENA GUERIN ([id number])[facility] (SBHLAB)[address] BASIC METABOLIC PANELon 06-09 Anion gap [Moles/Vol] 15 mmol/L High 3-13 [facility] Comment on above: Performed By: #### L AB15, LAB99 ####Scheduler Conveyor: SHENA GUERIN ([id number])[facility] CENTERKyler [place] (SBHLAB)[address] Calcium [Mass/Vol] 9.0 mg/dL Normal 8.4-10.2 [facility] Comment on above: Performed By: #### L AB15, LAB99 ####Scheduler Conveyor: SHENA GUERIN ([phone])[facility] (SBHLAB)[address] Chloride [Moles/Vol] 107 mmol/L Normal 98-107 [facility] Comment on above: Performed By: #### L AB15, LAB99 ####Scheduler Conveyor: SHENA GUERIN ([id number])[facility] (SBHLAB)[address] CO2 [Moles/Vol] 19 mmol/L Low 22-29 [facility] Comment on above: Performed By: #### L AB15, LAB99 ####Scheduler Conveyor: SHENA GUERIN ([id number])[facility] (SBHLAB)[address] Creatinine [Mass/Vol] 0.61 mg/dL Low 0.72-1.25 [facility] Comment on above: Performed By: #### L AB15, LAB99 ####Scheduler Conveyor: SHENA GUERIN ([id number])[facility] (SBHLAB)[address] GLOMERULAR FILTRATION RATE ML/MIN/1.73 SQ M.PREDICTED >90.0 Normal >60.0 [facility] Comment on above: Result Comment: Calc ulation based on the Chronic Kidney Disease Epidemiology Collaboration (CKD-EPI) equation refit without adjustment for race Performed By: #### L AB15, LAB99 ####Scheduler Conveyor: SHENA GUERIN ([id number])[facility] (SBHLAB)[address] Glucose [Mass/Vol] 125 mg/dL High 74-100 [facility] Comment on above: Performed By: #### L AB15, LAB99 ####Scheduler Conveyor: SHENA GUERIN ([phone])[facility] (SBHLAB)[address] [place] [address] [place] Potassium [Moles/Vol] 3.8 mmol/L Normal 3.5-5.1 [facility] Comment on above: Result Comment: [facility] potassium values may be up to 0.5 mmol/L lower than serum values. Performed By: #### L AB15, LAB99 ####Scheduler Conveyor: SHENA GUERIN ([id number])[facility] CENTERKyler ENGELUNIVERSITY OF NEW MEXICO HOSPITALSN (SBHLAB)[address] Sodium [Moles/Vol] 141 mmol/L Normal 136-145 [facility] Comment on above: Performed By: #### L AB15, LAB99 ####Scheduler Conveyor: SHENA GUERIN ([id number])[facility] (SBHLAB)[address] Urea nitrogen [Mass/Vol] 4 mg/dL Low 8-21 [facility] Comment on above: Performed By: #### L AB15, LAB99 ####Scheduler Conveyor: SHENA GUERIN ([id number])[facility] (SBHLAB)[address] Basic metabolic 1998 panelon 06-26-2024 Anion gap [Moles/Vol] 15 mmol/L High 3 - 13 mmol/L [facility] Calcium [Mass/Vol] 9 mg/dL 8.4 - 10. 2 mg/dL [facility] Chloride [Moles/Vol] 107 mmol/L 98 - 10 7 mmol/L [facility] CO2 [Moles/Vol] 19 mmol/L Low 22 - 29 mmol/L [facility] Creatinine [Mass/Vol] 0.61 mg/dL Low 0.72 - 1.25 mg/dL [facility] GFR/1.73 sq M.predicted (S/P/Bld) [Vol rate/Area] - PINF [facility] Comment on above: Calculation based on the Chronic Kidney Disease Epidemiology Collaboration (CKD-EPI) equation refit without adjustment for race Glucose [Mass/Vol] 125 mg/dL High 74 - 100 mg/dL [facility] Potassium [Moles/Vol] 3.8 mmol/L 3.5 - 5.1 mmol/L [facility] Comment on above: Plasma potassium víctor ues may be up to 0.5 mmol/L lower than serum values. Sodium [Moles/Vol] 141 mmol/L 136 - 145 mmol/L [facility] Urea nitrogen [Mass/Vol] 4 mg/dL Low 8 - 21 mg/dL [facility] CBC (HEMOGRAM)on 06-26-2024 Erythrocyte distribution width (RBC) [Ratio] 13.7 % Normal 11.5-15.0 [facility] Comment on above: Performed By: #### L AB294 ####Scheduler Conveyor: SHENA GUERIN ([id number])[facility] CENTERKyler [facility] (SBAB)[address] [place] [address] Hematocrit (Bld) [Volume fraction] 42.0 % Normal 40.0-52.0 [facility] Comment on above: Performed By: #### L AB294 ####Scheduler Conveyor: SHENA GUERIN ([id number])[facility] (SBAB)[address] [place] [address] Hemoglobin (Bld) [Mass/Vol] 14.2 g/dL Normal 13.0-18.0 [facility] Comment on above: Performed By: #### L AB294 ####Scheduler Conveyor: SHENA GUERIN ([id number])[facility] [place] [address] MCH (RBC) [Entitic mass] 30.4 pg Normal 26.0-34.0 [facility] Comment on above: Performed By: #### L AB294 ####Scheduler Conveyor: SHENA GUERIN ([id number])[facility] [place] [address] MCHC 33.8 % Normal 30.5-36.0 [facility] Comment on above: Performed By: #### L AB294 ####Scheduler Conveyor: SHENA GUERIN ([id number])[facility] (SBAB)[address] [place] [address] MCV (RBC) [Entitic vol] 89.9 fL Normal 77.0-99.0 [facility] Comment on above: Performed By: #### L AB294 ####Scheduler Conveyor: SHENA GUERIN ([id number])[facility] (SBAB)[address] [place] [address] Platelet mean volume (Bld) [Entitic vol] 9.9 fL Normal 9.0-12.7 [facility] Comment on above: Performed By: #### L AB294 ####Scheduler Conveyor: SHENA GUERIN ([id number])[facility] (SBHLAB)[address] Platelets (Bld) [#/Vol] 384 10*3/uL Normal 140-440 [facility] Comment on above: Performed By: #### L AB294 ####Scheduler Conveyor: SHENA GUERIN ([id number])[facility] (SBHLAB)[address] RBC (Bld) [#/Vol] 4.67 10*6/uL Normal 4.40-5.90 [facility] Comment on above: Performed By: #### L AB294 ####Scheduler Conveyor: SHENA GUERIN ([id number])[facility] (SBHLAB)[address] WBC (Bld) [#/Vol] 9.2 10*3/uL Normal 3.6-10.7 [facility] Comment on above: Performed By: #### L AB294 ####Scheduler Conveyor: SHENA GUERIN ([id number])[facility] [place] [address] CBC panel Auto (Bld)on 06-26 Erythrocyte distribution width (RBC) [Ratio] 13.7 % 11.5 - 15.0 % [facility] Hematocrit (Bld) [Volume fraction] 42 % 40.0 - 52.0 % [facility] Hemoglobin (Bld) [Mass/Vol] 14.2 g/dL 13.0 - 18.0 g/dL [facility] Interpretation and review of laboratory results Normal [facility] MCH (RBC) [Entitic mass] 30.4 pg 26.0 - 34.0 pg [facility] MCHC (RBC) [Mass/Vol] 33.8 % 30.5 - 36.0 % [facility] MCV (RBC) [Entitic vol] 89.9 fL 77.0 - 99.0 fL [facility] Platelet mean volume (Bld) [Entitic vol] 9.9 fL 9.0 - 12.7 fL [facility] Platelets (Bld) [#/Vol] 384 10*3/uL 140 - 440 10*3/uL [facility] RBC (Bld) [#/Vol] 4.67 10*6/uL 4.40 - 5.9 0 10*6/uL [facility] WBC (Bld) [#/Vol] 9.2 10*3/uL 3.6 - 10.7 10*3/uL [facility] CT ABDOMEN PELVIS W CONTRAST on 06-26-2024 CT ABDOMEN PELVIS W CONTRAST Normal [facility] CT Abdomen and Pelvis W cont rast Ellen 06-26-2024 Suspicious for acute pancreatitis. Report Dictated on Electronically Signed By: Steve Jacinto MD Electronically Signed Date/Time: 06/26/2024 9:50 PM EDT [facility] Patient Name: RORO CLAIRE : 1985 [...] bladder. No definite adenopathy. No spinal compression. [facility] Steve Jacinto MD - 06/26/2024 Patient [...] Electronically Signed Date/Time: 06/26/2024 9:50 PM EDT [facility] Radiology Study observation (narrative) [facility] CT Abdomen and Pelvis W cont rast IVOrdered By: Steve Jacinto on 06-26-2024 [facility] Work Phone: ED Provider Noteon ED Provider Note Normal [facility] LIPASEon 06-26-2024 Lipase [Catalytic activity/Vol] 75 U/L High <55 [facility] Comment on above: Performed By: #### L AB15, LAB99 ####Scheduler Conveyor: SHENA GUERIN ([id number])[facility] CENTERyKler OS[facility] ([facility])[address] [place] [address] Laboratory - Chemistry and C hemistry - challengeon 06-26-2024 Lipase [Catalytic activity/Vol] 75 U/L High NINF - 55 U/L [facility] No Panel Informationon 06-26 Interpretation and review of laboratory results Abnormal [facility] ECG 12-LEADon 06-20-2024 ECG 12-LEAD IMPRESSION: Sinus rhythm LVH by voltage No significant change from previous ekg Electronically Signed On 06-20-2024 05:27:52 EDT by Mattie Durbin Normal [facility] No Panel Informationon 06-20 P Lyman 40 degrees [facility] NE Interval 162 ms [facility] QRS Lyman -2 degrees [facility] QRSD Interval 92 ms [facility] QT Interval 406 ms [facility] QTC Interval 469 ms [facility] T Wave Lyman 8 degrees [facility] Sinus rhythm LVH by voltage No significant change from previous ekg Electronically Signed On 06-20-2024 05:27:52 EDT by Mattie Felix DO - 06/20/2024 IMPRESSION: Sinus rhythm LVH by voltage No significant change from previous ekg Electronically Signed On 06-20-2024 05:27:52 EDT by Mattie Durbin [facility] Vital signson 06-20-2024 Heart rate 80 /min bpm [facility] CBC W Auto Differential pane l (Bld)on 06-19-2024 Basophils (Bld) [#/Vol] 0.1 10*3/uL 0.0 - 0.2 10*3/uL [facility] Basophils/100 WBC (Bld) 0.5 % 0.0 - 2.0 % [facility] Eosinophils (Bld) [#/Vol] 0.2 10*3/uL 0.0 - 0.5 10*3/uL [facility] Eosinophils/100 WBC (Bld) 1.5 % 0.0 - 6.0 % [facility] Erythrocyte distribution width (RBC) [Ratio] 14 % 11.5 - 15.0 % [facility] Hematocrit (Bld) [Volume fraction] 39.9 % Low 40.0 - 52.0 % [facility] Hemoglobin (Bld) [Mass/Vol] 13.1 g/dL 13.0 - 18.0 g/dL [facility] Immature granulocytes (Bld) [#/Vol] 0 10*3/uL NINF - 0.1 10*3/uL [facility] Immature granulocytes/100 WBC (Bld) 0.4 % 0.0 - 2.0 % [facility] Interpretation and review of laboratory results Abnormal [facility] Lymphocytes (Bld) [#/Vol] 1.6 10*3/uL 1.0 - 4.3 10*3/uL [facility] Lymphocytes/100 WBC (Bld) 16.5 % 15.0 - 45.0 % [facility] MCH (RBC) [Entitic mass] 30.1 pg 26.0 - 34.0 pg [facility] MCHC (RBC) [Mass/Vol] 32.8 % 30.5 - 36.0 % [facility] MCV (RBC) [Entitic vol] 91.7 fL 77.0 - 99.0 fL [facility] Monocytes (Bld) [#/Vol] 0.8 10*3/uL 0.0 - 0.9 10*3/uL [facility] Monocytes/100 WBC (Bld) 8.3 % 5.0 - 13.0 % [facility] Neutrophils (Bld) [#/Vol] 7.1 10*3/uL 1.8 - 7.5 10*3/uL [facility] Neutrophils/100 WBC (Bld) 72.8 % 38.0 - 82.0 % [facility] Nucleated RBC/100 WBC (Bld) [Ratio] 0 % [facility] Platelet mean volume (Bld) [Entitic vol] 10.4 fL 9.0 - 12.7 fL [facility] Platelets (Bld) [#/Vol] 260 10*3/uL 140 - 440 10*3/uL [facility] RBC (Bld) [#/Vol] 4.35 10*6/uL Low 4.40 - 5.9 0 10*6/uL [facility] WBC (Bld) [#/Vol] 9.8 10*3/uL 3.6 - 10.7 10*3/uL [facility] CBC WITH AUTO DIFFERENTIALon 06-19-2024 Basophils (Bld) [#/Vol] 0.1 10*3/uL Normal 0.0-0.2 [facility] Comment on above: Performed By: #### L [id number] ####Scheduler Conveyor: SHENA GUERIN ([id number])[facility] [place] (SBAB)[address] [place] [address] Basophils/100 WBC (Bld) 0.5 % Normal 0.0-2.0 [facility] Comment on above: Performed By: #### L [id number] ####Scheduler Conveyor: SHENA GUERIN ([id number])[facility] CENTERA BARBUNIVERSITY OF NEW MEXICO HOSPITALSN (SBHLAB)[address] [place] [address] Eosinophils (Bld) [#/Vol] 0.2 10*3/uL Normal 0.0-0.5 [facility] Comment on above: Performed By: #### L [id number] ####Scheduler Conveyor: SHENA GUERIN ([phone])[facility]ENTERA BARBUNIVERSITY OF NEW MEXICO HOSPITALSN (SBHLAB)[address] Eosinophils/100 WBC (Bld) 1.5 % Normal 0.0-6.0 [facility] Comment on above: Performed By: #### L [id number] ####Scheduler Conveyor: SHENA CHAMPAGNEBETTY ([phone])[facility])[address] [place] [address] Erythrocyte distribution width (RBC) [Ratio] 14.0 % Normal 11.5-15.0 [facility] Comment on above: Performed By: #### L [id number] ####Scheduler Conveyor: SHENA CHAMPAGNEBETTY ([id number])[facility])[address] [place] [address] Hematocrit (Bld) [Volume fraction] 39.9 % Low 40.0-52.0 [facility] Comment on above: Performed By: #### L [id number] ####Scheduler Conveyor: SHENA GUERIN ([id number])[facility] [place] [address] Hemoglobin (Bld) [Mass/Vol] 13.1 g/dL Normal 13.0-18.0 [facility] Comment on above: Performed By: #### L [id number] ####Scheduler Conveyor: SHENA GUERIN ([id number])[facility]BSUMMIT [facility] (SBAB)[address] [place] [address] IMMATURE GRANS % 0.4 % Normal 0.0-2.0 [facility] Comment on above: Performed By: #### L [id number] ####Scheduler Conveyor: SHENA GUERIN ([id number])[facility] CENTERKyler ENGELUNIVERSITY OF NEW MEXICO HOSPITALSTu (SBHLAB)[address] IMMATURE GRANS ABSOLUTE 0.0 10*3/uL Normal <0.1 [facility] Comment on above: Performed By: #### L [id number] ####Scheduler Conveyor: SHENA GUERIN ([id number])[facility] MED[facility] CENTERKyler [place] (SBHLAB)[address] Lymphocytes (Bld) [#/Vol] 1.6 10*3/uL Normal 1.0-4.3 [facility] Comment on above: Performed By: #### L [id number] ####Scheduler Conveyor: SHENA GUERIN ([phone])[facility] CENTERK[facility] ANCRAM (SBHLAB)[address] [place] [address] Lymphocytes/100 WBC (Bld) 16.5 % Normal 15.0-45.0 [facility] Comment on above: Performed By: #### L [id number] ####Scheduler Conveyor: SHENA GUERIN ([phone])[facility] CENTERKyler [facility] (SBHLAB)[address] MCH (RBC) [Entitic mass] 30.1 pg Normal 26.0-34.0 [facility] Comment on above: Performed By: #### L [id number] ####Scheduler Conveyor: SHENA GUERIN ([phone])[facility] (SBHLAB)[address] MCHC 32.8 % Normal 30.5-36.0 [facility] Comment on above: Performed By: #### L [id number] ####Scheduler Conveyor: SHENA GUERIN ([phone])[facility] CENTERKyler ANCRAM (SBHLAB)[address] MCV (RBC) [Entitic vol] 91.7 fL Normal 77.0-99.0 [facility] Comment on above: Performed By: #### L [id number] ####Scheduler Conveyor: SHENA [phone])[facility] (SBHLAB)[address] Monocytes (Bld) [#/Vol] 0.8 10*3/uL Normal 0.0-0.9 [facility] Comment on above: Performed By: #### L [id number] ####Scheduler Conveyor: SHENA GUERIN ([phone])[facility] (SBHLAB)[address] Monocytes/100 WBC (Bld) 8.3 % Normal 5.0-13.0 [facility] Comment on above: Performed By: #### L [id number] ####Scheduler Conveyor: SHENA GUERIN ([id number])[facility] (SBHLAB)[address] NEUTROPHILS ABSOLUTE 7.1 10*3/uL Normal 1.8-7.5 [facility] Comment on above: Performed By: #### L [id number] ####Scheduler Conveyor: SHENA GUERIN ([id number])[facility] [place] (SBHLAB)[address] Neutrophils/100 WBC (Bld) 72.8 % Normal 38.0-82.0 [facility] Comment on above: Performed By: #### L [id number] ####Scheduler Conveyor: SHENA GUERIN ([phone])[facility] (SBHLAB)[address] NRBC 0.0 /100 WBCs Normal 0.0-2.0 [facility] Comment on above: Performed By: #### L [id number] ####Scheduler Conveyor: SHENA GUERIN ([phone])[facility] [place] (SBHLAB)[address] Platelet mean volume (Bld) [Entitic vol] 10.4 fL Normal 9.0-12.7 [facility] Comment on above: Performed By: #### L [id number] ####Scheduler Conveyor: SHENA GUERIN ([phone])[facility]ENT[facility] [place] (SBHLAB)[address] Platelets (Bld) [#/Vol] 260 10*3/uL Normal 140-440 [facility] Comment on above: Performed By: #### L [id number] ####Scheduler Conveyor: SHENA GUERIN ([phone])[facility]LLIEUNIVERSITY [facility] HOSPITALSN (SBHLAB)[address] RBC (Bld) [#/Vol] 4.35 10*6/uL Low 4.40-5.90 [facility] Comment on above: Performed By: #### L [id number] ####Scheduler Conveyor: SHENA GUERIN ([phone])[facility] OLLIEUNIVERSITY OF [facility] HOSPITALSN (SBHLAB)[address] WBC (Bld) [#/Vol] 9.8 10*3/uL Normal 3.6-10.7 [facility] Comment on above: Performed By: #### L [id number] ####Scheduler Conveyor: SHENA GUERIN ([phone])[facility] (SBHLAB)[address] [place] [address] COMPLETE URINALYSIS WITH REF VAIBHAV TO CULTUREon 06-19-2024 BACTERIA (#/HPF) IN URINE Negative Normal Negative [facility] Comment on above: Performed By: #### L [id number] ####Scheduler Conveyor: SHENA GUERIN ([phone])[facility] (SBHLAB)[address] BILIRUBIN, TOTAL PRESENCE IN URINE 0.5 mg/dL Abnormal Negative [facility] Comment on above: Performed By: #### L [id number] ####Scheduler Conveyor: SHENA GUERIN ([id number])[facility] (SBHLAB)[address] Clarity (U) Clear Normal Clear [facility] Comment on above: Performed By: #### L [id number] ####Scheduler Conveyor: SHENA GUERIN ([id number])[facility]ENTERA [facility] (SBHLAB)[address] Color (U) Dark Yellow Abnormal Lt. Yellow [facility] Comment on above: Performed By: #### L [id number] ####Scheduler Conveyor: SHENA GUERIN ([id number])[facility] (HLAB)[address] GLUCOSE (MG/DL) IN URINE Normal Normal Normal (<70) [facility] Comment on above: Performed By: #### L [id number] ####Scheduler Conveyor: SHENA GUERIN ([id number])[facility] ([facility] HEMOGLOBIN PRESENCE IN URINE Negative Normal Negative [facility] Comment on above: Performed By: #### L [id number] ####Scheduler Conveyor: SHENA GUERIN ([phone])[facility] ([facility])[address] Ketones Ql (U) Trace Abnormal Negative [facility] Comment on above: Performed By: #### L [id number] ####Scheduler Conveyor: SHENA GUERIN ([id number])[facility] ([facility])[address] LEUKOCYTE ESTERASE PRESENCE IN URINE BY TEST STRIP Negative Normal Negative [facility] Comment on above: Performed By: #### L [id number] ####Scheduler Conveyor: SHENA GUERIN ([phone])[facility] ([facility])[address] [place] [address] [place] MUCUS (#/LPF) IN URINE SEDIMENT Many Abnormal Negative [facility] Comment on above: Performed By: #### L [id number] ####Scheduler Conveyor: SHENA GUERIN ([phone])[facility])[address] NITRITE PRESENCE IN URINE Negative Normal Negative [facility] Comment on above: Performed By: #### L [id number] ####Scheduler Conveyor: SHENA GUERIN ([phone])[facility] CENTERK[facility] (SBHLAB)[address] pH (U) 6.0 [pH] Normal 5.0-8.0 [facility] Comment on above: Performed By: #### L [id number] ####Scheduler Conveyor: SHENA GUERIN ([id number])[facility] (SBHLAB)[address] Protein (U) [Mass/Vol] 30 mg/dL Abnormal Negative [facility] Comment on above: Performed By: #### L [id number] ####Scheduler Conveyor: SHENA DEL ROSARIOMARILOUBETTY ([id number])[facility])[address] RBC (#/HPF) IN URINE SEDIMENT 3-5 Abnormal 0-2 [facility] Comment on above: Performed By: #### L [id number] ####Scheduler Conveyor: SHENA CHAMPAGNEBETTY ([id number])[facility] ([facility])[address] [place] [address] Specific gravity (U) [Rel density] 1.037 High 1.005-1.030 [facility] Comment on above: Result Comment: PIEDAD Echeverria COMMENTS:A specimen with <=10 WBC is not consistent with inflammation. This specimen will not reflex to a urine culture. Performed By: #### L [id number] ####Scheduler Conveyor: SHENA GUERIN ([id number])[facility] CENTERK[facility] ([facility])[address] SQUAMOUS EPITHELIAL CELLS (#/HPF) IN URINE SEDIMENT 0-2 Normal 3-5 [facility] Comment on above: Performed By: #### L [id number] ####Scheduler Conveyor: SHENA GUERIN ([phone])[facility] ([facility])[address] UROBILINOGEN (MG/DL) IN URINE 6 mg/dL Abnormal Normal (0-1) [facility] Comment on above: Performed By: #### L [id number] ####Scheduler Conveyor: SHENA APOORVA ([id number])[facility] [place] (SBHLAB)[address] WBC (LEUKOCYTE) (#/HPF) IN URINE SEDIMENT 0-2 Normal 0-5 [facility] Comment on above: Performed By: #### L [id number] ####Scheduler Conveyor: SHENA DEL ROSARIOHAMIDA ([id number])[facility] [place] (SBHLAB)[address] COMPREHENSIVE METABOLIC PANE Rylan 06-19-2024 Albumin [Mass/Vol] 3.7 g/dL Normal 3.5-5.0 [facility] Comment on above: Performed By: #### L [id number], LAB99 ####Scheduler Conveyor: SHENA DEL ROSARIOHAMIDA ([id number])[facility] [place] (SBHLAB)[address] ALP [Catalytic activity/Vol] 161 U/L High 40-150 [facility] Comment on above: Performed By: #### L AB17, LAB99 ####Scheduler Conveyor: SHENA GUERIN ([phone])[facility] [place] (SBHLAB)[address] ALT [Catalytic activity/Vol] 50 U/L High <40 [facility] Comment on above: Performed By: #### L AB17, LAB99 ####Scheduler Conveyor: SHENA GUERIN ([id number])[facility] [place] (SBHLAB)[address] Anion gap [Moles/Vol] 11 mmol/L Normal 3-13 [facility] Comment on above: Performed By: #### L AB17, LAB99 ####Scheduler Conveyor: SHENA GUERIN ([id number])[facility] [place] (SBHLAB)[address] AST [Catalytic activity/Vol] 90 U/L High <34 [facility] Comment on above: Performed By: #### L AB17, LAB99 ####Scheduler Conveyor: SHENA GUERIN ([id number])[facility] [place] (SBHLAB)[address] Bilirubin [Mass/Vol] 1.2 mg/dL High <1.2 [facility] Comment on above: Performed By: #### L AB17, LAB99 ####Scheduler Conveyor: SHENA GUERIN ([phone])[facility] [place] (SBHLAB)[address] Calcium [Mass/Vol] 9.3 mg/dL Normal 8.4-10.2 [facility] Comment on above: Performed By: #### L AB17, LAB99 ####Scheduler Conveyor: SHENA GUERIN ([phone])[facility] [place] (SBHLAB)[address] Chloride [Moles/Vol] 107 mmol/L Normal 98-107 [facility] Comment on above: Performed By: #### L AB17, LAB99 ####Scheduler Conveyor: SHENA GUERIN ([id number])[facility] [place] (SBHLAB)[address] CO2 [Moles/Vol] 21 mmol/L Low 22-29 [facility] Comment on above: Performed By: #### L AB17, LAB99 ####Scheduler Conveyor: SHENA GUERIN ([phone])[facility] [place] (SBHLAB)[address] Creatinine [Mass/Vol] 0.68 mg/dL Low 0.72-1.25 [facility] Comment on above: Performed By: #### L AB17, LAB99 ####Scheduler Conveyor: SHENA GUERIN ([id number])[facility] [place] (SBHLAB)[address] GLOMERULAR FILTRATION RATE ML/MIN/1.73 SQ M.PREDICTED >90.0 Normal >60.0 [facility] Comment on above: Result Comment: Calc ulation based on the Chronic Kidney Disease Epidemiology Collaboration (CKD-EPI) equation refit without adjustment for race Performed By: #### L AB17, LAB99 ####Scheduler Conveyor: SHENA GUERIN ([id number])[facility] MEDICAL CENTERKyler [place] (SBHLAB)[address] Glucose [Mass/Vol] 104 mg/dL High 74-100 [facility] Comment on above: Performed By: #### L AB17, LAB99 ####Scheduler Conveyor: SHENA GUERIN ([id number])[facility] [place] (SBHLAB)[address] Potassium [Moles/Vol] 4.2 mmol/L Normal 3.5-5.1 [facility] Comment on above: Result Comment: [facility] potassium values may be up to 0.5 mmol/L lower than serum values. Performed By: #### L AB17, LAB99 ####Scheduler Conveyor: SHENA GUERIN ([phone])[facility] MED[facility] CENTERKyler BARBCAPRICEN (SBHLAB)[address] Protein [Mass/Vol] 7.5 g/dL Normal 6.4-8.3 [facility] Comment on above: Performed By: #### L AB17, LAB99 ####Scheduler Conveyor: SHENA GUERIN ([id number])[facility] CENTERK[facility] [place] (SBHLAB)[address] Sodium [Moles/Vol] 139 mmol/L Normal 136-145 [facility] Comment on above: Performed By: #### L AB17, LAB99 ####Scheduler Conveyor: SHENA GUERIN ([id number])[facility] [place] (SBHLAB)[address] Urea nitrogen [Mass/Vol] 5 mg/dL Low 8-21 [facility] Comment on above: Performed By: #### L AB17, LAB99 ####Scheduler Conveyor: SHENA GUERIN ([phone])[facility]ENTERA BARBUNIVERSITY OF NEW MEXICO HOSPITALSN (SBHLAB)[address] Comprehensive metabolic 1998 panelon 06-19-2024 Albumin [Mass/Vol] 3.7 g/dL 3.5 - 5.0 g/dL [facility] ALP [Catalytic activity/Vol] 161 U/L High 40 - 150 U/L [facility] ALT [Catalytic activity/Vol] 50 U/L High [facility] MARYVALEF - 40 U/L [facility] Anion gap [Moles/Vol] 11 mmol/L 3 - 13 mmol/L [facility] AST [Catalytic activity/Vol] 90 U/L High [facility] MARYVALEF - 34 U/L [facility] Bilirubin [Mass/Vol] 1.2 mg/dL High NINF - 1.2 mg/dL [facility] Calcium [Mass/Vol] 9.3 mg/dL 8.4 - 10. 2 mg/dL [facility] Chloride [Moles/Vol] 107 mmol/L 98 - 10 7 mmol/L [facility] CO2 [Moles/Vol] 21 mmol/L Low 22 - 29 mmol/L [facility] Creatinine [Mass/Vol] 0.68 mg/dL Low 0.72 - 1.25 mg/dL [facility] GFR/1.73 sq M.predicted (S/P/Bld) [Vol rate/Area] - PINF [facility] Comment on above: Calculation based on the Chronic Kidney Disease Epidemiology Collaboration (CKD-EPI) equation refit without adjustment for race Glucose [Mass/Vol] 104 mg/dL High 74 - 100 mg/dL [facility] Potassium [Moles/Vol] 4.2 mmol/L 3.5 - 5.1 mmol/L [facility] Comment on above: Plasma potassium víctor ues may be up to 0.5 mmol/L lower than serum values. Protein [Mass/Vol] 7.5 g/dL 6.4 - 8.3 g/dL [facility] Sodium [Moles/Vol] 139 mmol/L 136 - 145 mmol/L [facility] Urea nitrogen [Mass/Vol] 5 mg/dL Low 8 - 21 mg/dL [facility] ED Provider Noteon ED Provider Note Normal [facility] HIGH SENSITIVITY TROPONIN, S ERIAL BASELINEon 06-19-2024 TROPONIN HS SERIAL BASELINE <3 Normal <=35 [facility] Comment on above: Result Comment: In i ndividuals presenting with symptoms > 2h, a baseline troponin <= 5 ng/L suggests acutecardiac injury is unlikely and further serial testing is generally not indicated. Performed By: #### L [id number] ####Scheduler Conveyor: SHENA DEL ROSARIOHAMIDA ([id number])[facility]IESUMMIT [facility] (SBHLAB)[address] LIPASEon 06-19-2024 Lipase [Catalytic activity/Vol] 65 U/L High <55 [facility] Comment on above: Performed By: #### L AB17, LAB99 ####Scheduler Conveyor: SHENA APOORVA ([phone])[facility]UMMIT [facility] (SBHLAB)[address] Laboratory - Chemistry and C hemistry - challengeon 06-19-2024 Lipase [Catalytic activity/Vol] 65 U/L High NINF - 55 U/L [facility] No Panel Informationon 06-19 Interpretation and review of laboratory results Normal [facility] Troponin HS Serial Baseline ng/L NINF - 35 ng/L [facility] Comment on above: In individuals prese nting with symptoms > 2h, a baseline troponin <= 5 ng/L suggests acute cardiac injury is unlikely and further serial testing is generally not indicated. [facility] Interpretation and review of laboratory results Abnormal [facility] Urinalysis complete panel (U )Ordered By: Nigel Palmer on 06-19-2024 Bacteria LM.HPF (Urine sed) [#/Area] Negative Negative /HPF [facility] Bilirubin Ql (U) 0.5 mg/dL Abnormal Negative [facility] Clarity (U) Clear Clear [facility] Color (U) Dark Yellow Abnormal Lt. Yellow [facility] Epithelial cells.squamous LM.HPF (Urine sed) [#/Area] 0-2 [facility] Glucose Ql (U) Normal Normal (<70) mg/dL [facility] Hemoglobin Ql (U) Negative Negative mg/dL [facility] Interpretation and review of laboratory results Abnormal [facility] Ketones (U) [Mass/Vol] Trace Abnormal Negat chan mg/dL [facility] Leukocyte esterase Test strip Ql (U) Negative Negative Teofilo/uL [facility] Mucus LM.HPF (Urine sed) [#/Area] Many Abnormal Negative /LPF [facility] Nitrite Ql (U) Negative Negative [facility] pH (U) 6.0 [pH] 5.0 - 8.0 pH [facility] Protein (U) [Mass/Vol] 30 mg/dL Abnormal Negative [facility] RBC LM.HPF (Urine sed) [#/Area] 3-5 Abnormal [facility] Specific gravity (U) [Rel density] 1.037 High 1.005 - 1.030 [facility] Urobilinogen (U) [Mass/Vol] 6 mg/dL Abnormal Normal (0-1) [facility] WBC LM.HPF (Urine sed) [#/Area] 0-2 [facility] A specimen with <=10 WBC is not consistent with inflammation. This specimen will not reflex to a urine culture. [facility] XR Chest Single viewon 06-19 No radiographic acute cardiopulmonary process. Report Dictated on Electronically Signed By: Seema Watson MD Electronically Signed Date/Time: 06/19/2024 9:43 PM EDT [facility] RADIOLOGY SYSTEM Patient Name: RORO CLAIRE : 1985 Exam Date/Time: 06/19/2024 21:32 Procedure: XR CHEST 1 VIEW Ordering Provider: ADAME MARY Reason For Exam: cp INDICATION: Chest pain. VIEWS: Chest portable-one image COMPARISON: 12/14/2023 FINDINGS: The trachea is midline. The cardiac silhouette is within normal limits. The lungs are clear. The costophrenic angles are sharp. The bone mineralization is normal. [facility] Seema Watson MD - 06/19/2024 Patient [...] Electronically Signed Date/Time: 06/19/2024 9:43 PM EDT [facility] Radiology Study observation (narrative) [facility] XR Chest Single viewOrdered By: Seema Watson on 06-19-2024 [facility] Work Phone: CBC W Auto Differential pane l (Bld)on 06-18-2024 Basophils (Bld) [#/Vol] 0 10*3/uL 0.0 - 0.2 10*3/uL [facility] Basophils/100 WBC (Bld) 0.4 % 0.0 - 2.0 % [facility] Eosinophils (Bld) [#/Vol] 0.1 10*3/uL 0.0 - 0.5 10*3/uL [facility] Eosinophils/100 WBC (Bld) 1.1 % 0.0 - 6.0 % [facility] Erythrocyte distribution width (RBC) [Ratio] 14.1 % 11.5 - 15.0 % [facility] Hematocrit (Bld) [Volume fraction] 42.8 % 40.0 - 52.0 % [facility] Hemoglobin (Bld) [Mass/Vol] 14.1 g/dL 13.0 - 18.0 g/dL [facility] Immature granulocytes (Bld) [#/Vol] 0 10*3/uL NINF - 0.1 10*3/uL [facility] Immature granulocytes/100 WBC (Bld) 0.5 % 0.0 - 2.0 % [facility] Interpretation and review of laboratory results Normal [facility] Lymphocytes (Bld) [#/Vol] 2.2 10*3/uL 1.0 - 4.3 10*3/uL [facility] Lymphocytes/100 WBC (Bld) 26.6 % 15.0 - 45.0 % [facility] MCH (RBC) [Entitic mass] 30.3 pg 26.0 - 34.0 pg [facility] MCHC (RBC) [Mass/Vol] 32.9 % 30.5 - 36.0 % [facility] MCV (RBC) [Entitic vol] 92 fL 77.0 - 99.0 fL [facility] Monocytes (Bld) [#/Vol] 0.6 10*3/uL 0.0 - 0.9 10*3/uL [facility] Monocytes/100 WBC (Bld) 7.1 % 5.0 - 13.0 % [facility] Neutrophils (Bld) [#/Vol] 5.2 10*3/uL 1.8 - 7.5 10*3/uL [facility] Neutrophils/100 WBC (Bld) 64.3 % 38.0 - 82.0 % [facility] Nucleated RBC/100 WBC (Bld) [Ratio] 0 % [facility] Platelet mean volume (Bld) [Entitic vol] 10.6 fL 9.0 - 12.7 fL [facility] Platelets (Bld) [#/Vol] 299 10*3/uL 140 - 440 10*3/uL [facility] RBC (Bld) [#/Vol] 4.65 10*6/uL 4.40 - 5.9 0 10*6/uL [facility] WBC (Bld) [#/Vol] 8.1 10*3/uL 3.6 - 10.7 10*3/uL [facility] CBC WITH AUTO DIFFERENTIALon 06-18-2024 Basophils (Bld) [#/Vol] 0.0 10*3/uL Normal 0.0-0.2 [facility] Comment on above: Performed By: #### L [id number] ####Scheduler Conveyor: SHENA GUERIN ([id number])[facility] CAM[facility]ST[facility] ([facility])[address] [place] [address] Basophils/100 WBC (Bld) 0.4 % Normal 0.0-2.0 [facility] Comment on above: Performed By: #### L [id number] ####Scheduler Conveyor: SHENA GUERIN ([phone])[facility] (SBAB)[address] Eosinophils (Bld) [#/Vol] 0.1 10*3/uL Normal 0.0-0.5 [facility] Comment on above: Performed By: #### L [id number] ####Scheduler Conveyor: SHENA [id number])[facility] [place] (SBHLAB)[address] Eosinophils/100 WBC (Bld) 1.1 % Normal 0.0-6.0 [facility] Comment on above: Performed By: #### L [id number] ####Scheduler Conveyor: SHENA GUERIN ([id number])[facility] [place] (SBHLAB)[address] Erythrocyte distribution width (RBC) [Ratio] 14.1 % Normal 11.5-15.0 [facility] Comment on above: Performed By: #### L [id number] ####Scheduler Conveyor: SHENA GUERIN ([id number])[facility]ENTERA BARBUNIVERSITY OF NEW MEXICO HOSPITALSN ([facility])[address] Hematocrit (Bld) [Volume fraction] 42.8 % Normal 40.0-52.0 [facility] Comment on above: Performed By: #### L [id number] ####Scheduler Conveyor: SHENA GUERIN ([phone])[facility] [place] (SBHLAB)[address] Hemoglobin (Bld) [Mass/Vol] 14.1 g/dL Normal 13.0-18.0 [facility] Comment on above: Performed By: #### L [id number] ####Scheduler Conveyor: SHENA GUERIN ([phone])[facility] [place] (SBHLAB)[address] IMMATURE GRANS % 0.5 % Normal 0.0-2.0 [facility] Comment on above: Performed By: #### L [id number] ####Scheduler Conveyor: SHENA GUERIN ([id number])[facility] [place] (SBHLAB)[address] IMMATURE GRANS ABSOLUTE 0.0 10*3/uL Normal <0.1 [facility] Comment on above: Performed By: #### L [id number] ####Scheduler Conveyor: SHENA GUERIN ([id number])[facility] [place] (SBHLAB)[address] Lymphocytes (Bld) [#/Vol] 2.2 10*3/uL Normal 1.0-4.3 [facility] Comment on above: Performed By: #### L [id number] ####Scheduler Conveyor: SHENA GUERIN ([id number])[facility] CENTERKyler [place] (SBHLAB)[address] Lymphocytes/100 WBC (Bld) 26.6 % Normal 15.0-45.0 [facility] Comment on above: Performed By: #### L [id number] ####Scheduler Conveyor: SHENA GUERIN ([id number])[facility] CENTERKyler ENGELCAPRICEN (SBHLAB)[address] [place] [address] MCH (RBC) [Entitic mass] 30.3 pg Normal 26.0-34.0 [facility] Comment on above: Performed By: #### L [id number] ####Scheduler Conveyor: SHENA GUERIN ([id number])[facility] CENTERKyler [place] (SBHLAB)[address] [place] [address] MCHC 32.9 % Normal 30.5-36.0 [facility] Comment on above: Performed By: #### L [id number] ####Scheduler Conveyor: SHENA GUERIN ([id number])CHUCKKyler BARBCAPRICEN (SBHLAB)[address] [place] [address] MCV (RBC) [Entitic vol] 92.0 fL Normal 77.0-99.0 [facility] Comment on above: Performed By: #### L [id number] ####Scheduler Conveyor: SHENA GUERIN ([phone])[facility] [place] (SBHLAB)[address] [place] [address] Monocytes (Bld) [#/Vol] 0.6 10*3/uL Normal 0.0-0.9 [facility] Comment on above: Performed By: #### L [id number] ####Scheduler Conveyor: SHENA GUERIN ([id number])[facility] [place] (SBHLAB)[address] Monocytes/100 WBC (Bld) 7.1 % Normal 5.0-13.0 [facility] Comment on above: Performed By: #### L [id number] ####Scheduler Conveyor: SHENA GUERIN ([id number])[facility] [place] (SBHLAB)[address] NEUTROPHILS ABSOLUTE 5.2 10*3/uL Normal 1.8-7.5 [facility] Comment on above: Performed By: #### L [id number] ####Scheduler Conveyor: SHENA GUERIN ([id number])[facility] [place] (SBHLAB)[address] Neutrophils/100 WBC (Bld) 64.3 % Normal 38.0-82.0 [facility] Comment on above: Performed By: #### L [id number] ####Scheduler Conveyor: SHENA GUERIN ([phone])[facility] [place] (SB[facility]AB)[address] NRBC 0.0 /100 WBCs Normal 0.0-2.0 [facility] Comment on above: Performed By: #### L [id number] ####Scheduler Conveyor: SHENA GUERIN ([id number])[facility] [place] (SBHLAB)[address] Platelet mean volume (Bld) [Entitic vol] 10.6 fL Normal 9.0-12.7 [facility] Comment on above: Performed By: #### L [id number] ####Scheduler Conveyor: SHENA GUERIN ([phone])[facility] [place] (SBHLAB)155 [place] [address] [place] Platelets (Bld) [#/Vol] 299 10*3/uL Normal 140-440 [facility] Comment on above: Performed By: #### L [id number] ####Scheduler Conveyor: SHENA GUERIN ([id number])[facility] [place] (SBHLAB)[address] RBC (Bld) [#/Vol] 4.65 10*6/uL Normal 4.40-5.90 [facility] Comment on above: Performed By: #### L [id number] ####Scheduler Conveyor: SHENA GUERIN ([id number])[facility] CENTERKyler OSORIO (SBHLAB)[address] WBC (Bld) [#/Vol] 8.1 10*3/uL Normal 3.6-10.7 [facility] Comment on above: Performed By: #### L [id number] ####Scheduler Conveyor: SHENA GUERIN ([id number])[facility] CENTERKyler NEUMANNTu (SBHLAB)[address] COMPREHENSIVE METABOLIC PANE Rylan 06-18-2024 Albumin [Mass/Vol] 3.9 g/dL Normal 3.5-5.0 [facility] Comment on above: Performed By: #### Iggy AB99, LAB17, LAB46 ####Scheduler Conveyor: SHENA GUERIN ([id number])[facility] CENTERKyler ENGELUNIVERSITY OF NEW MEXICO HOSPITALSN (SBHLAB)[address] ALP [Catalytic activity/Vol] 170 U/L High 40-150 [facility] Comment on above: Performed By: #### L AB99, LAB17, LAB46 ####Scheduler Conveyor: SHENA GUERIN ([phone])[facility] CENTERKyler ENGELCAPRICEN (SBHLAB)[address] ALT [Catalytic activity/Vol] 59 U/L High <40 [facility] Comment on above: Performed By: #### L AB99, LAB17, LAB46 ####Scheduler Conveyor: SHENA GUERIN ([phone])[facility] [place] (SB[facility]AB)[address] Anion gap [Moles/Vol] 10 mmol/L Normal 3-13 [facility] Comment on above: Performed By: #### L AB99, LAB17, LAB46 ####Scheduler Conveyor: SHENA GUERIN ([phone])[facility] [place] (SBHLAB)[address] [place] [address] [place] AST [Catalytic activity/Vol] 91 U/L High <34 [facility] Comment on above: Performed By: #### L AB99, LAB17, LAB46 ####Scheduler Conveyor: SHENA GUERIN ([phone])[facility] [place] (SBHLAB)[address] Bilirubin [Mass/Vol] 1.2 mg/dL High <1.2 [facility] Comment on above: Performed By: #### L AB99, LAB17, LAB46 ####Scheduler Conveyor: SHENA GUERIN ([phone])[facility]A THIENN (SBHLAB)[address] Calcium [Mass/Vol] 9.7 mg/dL Normal 8.4-10.2 [facility] Comment on above: Performed By: #### Iggy ROBB, LAB17, LAB46 ####Scheduler Conveyor: SHENA GUERIN ([phone])[facility]ENTERA OLLIEUNIVERSITY OF NEW MEXICO HOSPITALSN (SBHLAB)[address] [place] [address] [place] Chloride [Moles/Vol] 105 mmol/L Normal 98-107 [facility] Comment on above: Performed By: #### L AB99, LAB17, LAB46 ####Scheduler Conveyor: SHENA GUERIN ([phone])[facility] [place] (SBHLAB)[address] [place] [address] [place] CO2 [Moles/Vol] 23 mmol/L Normal 22-29 [facility] Comment on above: Performed By: #### L AB99, LAB17, LAB46 ####Scheduler Conveyor: SHENA GUERIN ([id number])[facility] [place] (SBHLAB)[address] [place] [address] [place] Creatinine [Mass/Vol] 0.64 mg/dL Low 0.72-1.25 [facility] Comment on above: Performed By: #### L AB99, LAB17, LAB46 ####Scheduler Conveyor: SHENA GUERIN ([phone])[facility] CENTERKyler [facility]ELSUM[facility] (SBHLAB)[address] GLOMERULAR FILTRATION RATE ML/MIN/1.73 SQ M.PREDICTED >90.0 Normal >60.0 [facility] Comment on above: Result Comment: Calc ulation based on the Chronic Kidney Disease Epidemiology Collaboration (CKD-EPI) equation refit without adjustment for race Performed By: #### L AB99, LAB17, LAB46 ####Scheduler Conveyor: SHENA GUERIN ([id number])[facility] MED[facility] CENTERKyler ANCRAM (SBHLAB)[address] Glucose [Mass/Vol] 120 mg/dL High 74-100 [facility] Comment on above: Performed By: #### Iggy AB99, LAB17, LAB46 ####Scheduler Conveyor: SHENA GUERIN ([phone])[facility] (SBHLAB)[address] Potassium [Moles/Vol] 4.0 mmol/L Normal 3.5-5.1 [facility] Comment on above: Result Comment: [facility] potassium values may be up to 0.5 mmol/L lower than serum values. Performed By: #### Iggy [id number], LAB17, LAB46 ####Scheduler Conveyor: SHENA GUERIN ([phone])[facility] CENTERKyler ENGELSUMMIT [facility]ALTH[facility] (SBHLAB)[address] Protein [Mass/Vol] 8.2 g/dL Normal 6.4-8.3 [facility] Comment on above: Performed By: #### L AB99, LAB17, LAB46 ####Scheduler Conveyor: SHENA GUERIN ([id number])[facility] (SBHLAB)[address] [place] [address] [place] Sodium [Moles/Vol] 138 mmol/L Normal 136-145 [facility] Comment on above: Performed By: #### L AB99, LAB17, LAB46 ####Scheduler Conveyor: SHENA GUERIN ([phone])[facility] (SBHLAB)[address] Urea nitrogen [Mass/Vol] 4 mg/dL Low 8-21 [facility] Comment on above: Performed By: #### L AB99, LAB17, LAB46 ####Scheduler Conveyor: SHENA GUERIN ([phone])[facility] [place] (SBHLAB)[address] Comprehensive metabolic 1998 panelon 06-18-2024 Albumin [Mass/Vol] 3.9 g/dL 3.5 - 5.0 g/dL [facility] ALP [Catalytic activity/Vol] 170 U/L High 40 - 150 U/L [facility] ALT [Catalytic activity/Vol] 59 U/L High NINF - 40 U/L [facility] Anion gap [Moles/Vol] 10 mmol/L 3 - 13 mmol/L [facility] AST [Catalytic activity/Vol] 91 U/L High NINF - 34 U/L [facility] Bilirubin [Mass/Vol] 1.2 mg/dL High NINF - 1.2 mg/dL [facility] Calcium [Mass/Vol] 9.7 mg/dL 8.4 - 10. 2 mg/dL [facility] Chloride [Moles/Vol] 105 mmol/L 98 - 10 7 mmol/L [facility] CO2 [Moles/Vol] 23 mmol/L 22 - 29 mmol/L [facility] Creatinine [Mass/Vol] 0.64 mg/dL Low 0.72 - 1.25 mg/dL [facility] GFR/1.73 sq M.predicted (S/P/Bld) [Vol rate/Area] - PINF [facility] Comment on above: Calculation based on the Chronic Kidney Disease Epidemiology Collaboration (CKD-EPI) equation refit without adjustment for race Glucose [Mass/Vol] 120 mg/dL High 74 - 100 mg/dL [facility] Interpretation and review of laboratory results Abnormal [facility] Potassium [Moles/Vol] 4 mmol/L 3.5 - 5.1 mmol/L [facility] Comment on above: Plasma potassium víctor ues may be up to 0.5 mmol/L lower than serum values. Protein [Mass/Vol] 8.2 g/dL 6.4 - 8.3 g/dL [facility] Sodium [Moles/Vol] 138 mmol/L 136 - 145 mmol/L [facility] Urea nitrogen [Mass/Vol] 4 mg/dL Low 8 - 21 mg/dL [facility] ED Provider Noteon ED Provider Note Normal [facility] ETHANOLon 06-18-2024 ETHANOL IN SER/PLAS <10 Normal <10 [facility] Comment on above: Result Comment: PIEDAD R COMMENTS:VOICE PATHOLOGIST depression is seen >100 mg/dL.NOTE: This result is for medical treatment only. Analysis performed using non-forensic procedures. Performed By: #### L AB99, LAB17, LAB46 ####Scheduler Conveyor: SHENA GUERIN ([phone])[facility] ([facility])[address] [place] [address] Ethanol (Bld) [Mass/Vol]on 0 06-18-2024 Ethanol [Mass/Vol] mg/dL NINF - 10 mg/dL [facility] Interpretation and review of laboratory results Normal [facility] VOICE PATHOLOGIST depression is se en >100 mg/dL. NOTE: This result is for medical treatment only. Analysis performed using non-forensic procedures. [facility] LIPASEon 06-18-2024 Lipase [Catalytic activity/Vol] 60 U/L High <55 [facility] Comment on above: Performed By: #### L AB99, LAB17, LAB46 ####Scheduler Conveyor: SHENA GUERIN ([phone])[facility] (SBAB)[address] [place] [address] Laboratory - Chemistry and C hemistry - challengeon 06-18-2024 Lipase [Catalytic activity/Vol] 60 U/L High NINF - 55 U/L [facility] Lipase [Catalytic activity/V ol]on 06-18-2024 Interpretation and review of laboratory results Abnormal [facility] No Panel Informationon 06-18 [facility] CT ABDOMEN PELVIS W CONTRAST on 06-13-2024 CT ABDOMEN PELVIS W CONTRAST Normal [facility] CT Abdomen and Pelvis W cont [...] Electronically Signed Date/Time: 06/13/2024 12:10 AM EDT [employer] [facility] 1985 [id number] Exam Date/Time: 06/12/2024 23:37 Procedure: CT ABDOMEN [...] is no evidence of hydronephrosis or hydroureter. [facility] [employer] Cerdick Pak MD - 06/13/2024 Patient Name: [facility] VALDIVIA [facility] 1985 [id number] Exam Date/Time: 06/12/2024 23:37 Procedure: CT ABDOMEN [...] Electronically Signed Date/Time: 06/13/2024 12:10 AM EDT [facility] CT Abdomen and Pelvis W cont rast IVOrdered By: Cedrick Pak on 06-13-2024 [employer] Work Phone: CBC W Auto Differential pane l (Bld)on 06-12-2024 Basophils (Bld) [#/Vol] 0 10*3/uL 0.0 - 0.2 10*3/uL [facility] Basophils/100 WBC (Bld) 0.4 % 0.0 - 2.0 % [employer] [facility] Eosinophils (Bld) [#/Vol] 0.1 10*3/uL 0.0 - 0.5 10*3/uL [facility] [facility] Eosinophils/100 WBC (Bld) 0.9 % 0.0 - 6.0 % [facility] Erythrocyte distribution width (RBC) [Ratio] 14.4 % 11.5 - 15.0 % [facility] Hematocrit (Bld) [Volume fraction] 42.7 % 40.0 - 52.0 % [facility] Hemoglobin (Bld) [Mass/Vol] 14.1 g/dL 13.0 - 18.0 g/dL [facility] Immature granulocytes (Bld) [#/Vol] 0 10*3/uL NINF - 0.1 10*3/uL [facility] Immature granulocytes/100 WBC (Bld) 0.2 % 0.0 - 2.0 % [facility] Interpretation and review of laboratory results Abnormal [facility] [facility] Lymphocytes (Bld) [#/Vol] 2.4 10*3/uL 1.0 - 4.3 10*3/uL [facility] Lymphocytes/100 WBC (Bld) 26.5 % 15.0 - 45.0 % [facility] MCH (RBC) [Entitic mass] 30.5 pg 26.0 - 34.0 pg [facility] MCHC (RBC) [Mass/Vol] 33 % 30.5 - 36.0 % [facility] MCV (RBC) [Entitic vol] 92.2 fL 77.0 - 99.0 fL [facility] [employer] Monocytes (Bld) [#/Vol] 0.4 10*3/uL 0.0 - 0.9 10*3/uL [facility] Monocytes/100 WBC (Bld) 4.4 % Low 5.0 - 13.0 % [facility] Neutrophils (Bld) [#/Vol] 6 10*3/uL 1.8 - 7.5 10*3/uL [facility] Neutrophils/100 WBC (Bld) 67.6 % 38.0 - 82.0 % [facility] Nucleated RBC/100 WBC (Bld) [Ratio] 0 % [facility] Platelet mean volume (Bld) [Entitic vol] 10.2 fL 9.0 - 12.7 fL [facility] Comment on above: MPV is a calculated measurement using platelet volume ratio Platelets (Bld) [#/Vol] 349 10*3/uL 140 - 440 10*3/uL [facility] RBC (Bld) [#/Vol] 4.63 10*6/uL 4.40 - 5.9 0 10*6/uL [facility] WBC (Bld) [#/Vol] 8.9 10*3/uL 3.6 - 10.7 10*3/uL [facility] CBC WITH AUTO DIFFERENTIALon 06-12-2024 Basophils (Bld) [#/Vol] 0.0 10*3/uL Normal 0.0-0.2 [facility] Comment on above: Performed By: #### L [id number] ####Scheduler Conveyor: SHENA GUERIN ([id number])[facility] IllumagearECU HEALTH EDGECOMBE HOSPITALMiiraS ([facility])[address] Basophils/100 WBC (Bld) 0.4 % Normal 0.0-2.0 [facility] Comment on above: Performed By: #### L [id number] ####Scheduler Conveyor: SHENA GUERIN ([id number])[facility]3[employer] [place] ([facility])[address] Eosinophils (Bld) [#/Vol] 0.1 10*3/uL Normal 0.0-0.5 [facility] Comment on above: Performed By: #### L [id number] ####Scheduler Conveyor: SHENA GUERIN ([phone])[facility] CENTERA [facility] CHILDREN'[facility] MEDICAL CENTERITAGE [place] ([facility])[address] Eosinophils/100 WBC (Bld) 0.9 % Normal 0.0-6.0 [facility] Comment on above: Performed By: #### L [id number] ####Scheduler Conveyor: SHENA CHAMPAGNEBETTY ([phone])[facility] HOSPITALGE [place] ([facility])[address] Erythrocyte distribution width (RBC) [Ratio] 14.4 % Normal 11.5-15.0 [facility] Comment on above: Performed By: #### L [id number] ####Scheduler Conveyor: SHENA CHAMPAGNEBETTY ([phone])[facility] HOS[facility]ITALGE [place] ([facility])[address] Hematocrit (Bld) [Volume fraction] 42.7 % Normal 40.0-52.0 [facility] Comment on above: Performed By: #### L [id number] ####Scheduler Conveyor: SHENA GUERIN ([id number])[facility]3[employer] [place] ([facility])[address] Hemoglobin (Bld) [Mass/Vol] 14.1 g/dL Normal 13.0-18.0 [facility] Comment on above: Performed By: #### L [id number] ####Scheduler Conveyor: SHENA GUERIN ([phone])[facility]ENTERA IllumagearITAGE [place] ([facility])[address] IMMATURE GRANS % 0.2 % Normal 0.0-2.0 [facility] Comment on above: Performed By: #### L [id number] ####Scheduler Conveyor: SHENA GUERIN ([id number])[facility] CENTERA [facility] CHILDR[facility] MEDICAL CENTERITAGE [place] ([facility])[address] IMMATURE GRANS ABSOLUTE 0.0 10*3/uL Normal <0.1 [facility] Comment on above: Performed By: #### L [id number] ####Scheduler Conveyor: SHENA GUERIN ([phone])[facility]ENTERA [facility] [place] ([facility])[address] Lymphocytes (Bld) [#/Vol] 2.4 10*3/uL Normal 1.0-4.3 [facility] Comment on above: Performed By: #### L [id number] ####Scheduler Conveyor: SHENA GUERIN ([phone])[facility]A [facility] [place] ([facility]LAB)[address] Lymphocytes/100 WBC (Bld) 26.5 % Normal 15.0-45.0 [facility] Comment on above: Performed By: #### L [id number] ####Scheduler Conveyor: SHENA UGERIN ([phone])[facility]A [facility] [place] ([facility]LAB)[address] MCH (RBC) [Entitic mass] 30.5 pg Normal 26.0-34.0 [facility] Comment on above: Performed By: #### L [id number] ####Scheduler Conveyor: SHENA GUERIN ([phone])[facility]A IllumagearITAGE [place] ([facility]LAB)[address] MCHC 33.0 % Normal 30.5-36.0 [facility] Comment on above: Performed By: #### L [id number] ####Scheduler Conveyor: SHENA GUERIN ([phone])[facility]A [facility] [place] ([facility]ENTERLAB)[address] [place] [address] [place] MCV (RBC) [Entitic vol] 92.2 fL Normal 77.0-99.0 [facility] Comment on above: Performed By: #### L [id number] ####Scheduler Conveyor: SHENA GUERIN ([phone])[facility]A [facility] [place] ([facility]LAB)[address] [place] [address] [facility] Monocytes (Bld) [#/Vol] 0.4 10*3/uL Normal 0.0-0.9 [facility] Comment on above: Performed By: #### L [id number] ####Scheduler Conveyor: SHENA GUREIN ([phone])[facility]A [facility] [place] ([facility]LAB)[address] [place] [address] [place] Monocytes/100 WBC (Bld) 4.4 % Low 5.0-13.0 [facility] Comment on above: Performed By: #### L [id number] ####Scheduler Conveyor: SHENA GUERIN ([phone])[facility]A [facility] [place] ([facility]ENTERLAB)[address] [place] [address] [facility] NEUTROPHILS ABSOLUTE 6.0 10*3/uL Normal 1.8-7.5 [facility] Comment on above: Performed By: #### L [id number] ####Scheduler Conveyor: SHENA GUERIN ([phone])[facility]ENTERA IllumagearITAGE [place] ([facility]LAB)[address] [place] [address] [place] Neutrophils/100 WBC (Bld) 67.6 % Normal 38.0-82.0 [facility] Comment on above: Performed By: #### L [id number] ####Scheduler Conveyor: SHENA GUERIN ([phone])[facility]A IllumagearITAGE [place] ([facility]LAB)[address] [place] [address] [facility] NRBC 0.0 /100 WBCs Normal 0.0-2.0 [facility] Comment on above: Performed By: #### L [id number] ####Scheduler Conveyor: SHENA GUERIN ([id number])[facility]ENTERA IllumagearITAGE [place] ([facility])[address] [place] [address] [facility] Platelet mean volume (Bld) [Entitic vol] 10.2 fL Normal 9.0-12.7 [facility] Comment on above: Result Comment: MPV is a calculated measurement using platelet volume ratio Performed By: #### L [id number] ####Scheduler Conveyor: SHENA GUERIN ([phone])[facility] evOLEDS ([facility])[address] Platelets (Bld) [#/Vol] 349 10*3/uL Normal 140-440 [facility] Comment on above: Performed By: #### L [id number] ####Scheduler Conveyor: SHENA GUERIN ([phone])[facility] [place] ([facility]LAB)[address] [place] [address] RBC (Bld) [#/Vol] 4.63 10*6/uL Normal 4.40-5.90 [facility] Comment on above: Performed By: #### L [id number] ####Scheduler Conveyor: SHENA GUERIN ([phone])[facility] ([facility]ENTERLAB)[address] [place] [address] WBC (Bld) [#/Vol] 8.9 10*3/uL Normal 3.6-10.7 [facility] Comment on above: Performed By: #### L [id number] ####Scheduler Conveyor: SHENA GUERIN ([phone])[facility] ([facility]LAB)[address] [place] [address] COMPREHENSIVE METABOLIC PANE Rylan 06-12-2024 Albumin [Mass/Vol] 3.9 g/dL Normal 3.5-5.0 [facility] Comment on above: Performed By: #### L AB103, LAB17, LAB99, LAB46 ####Scheduler Conveyor: SHENA GUERIN ([phone])[facility] ([facility]LAB)[address] [place] [address] ALP [Catalytic activity/Vol] 176 U/L High 40-150 [facility] Comment on above: Performed By: #### L AB103, LAB17, LAB99, LAB46 ####Scheduler Conveyor: SHENA GUERIN ([phone])[facility] [place] ([facility])[address] [place] [address] [place] ALT [Catalytic activity/Vol] 64 U/L High <40 [facility] Comment on above: Performed By: #### L AB103, LAB17, LAB99, LAB46 ####Scheduler Conveyor: SHENA GUERIN ([phone])[facility] [place] ([facility]LAB)[address] [place] [address] [facility] Anion gap [Moles/Vol] 14 mmol/L High 3-13 [facility] Comment on above: Performed By: #### Iggy AB103, LAB17, LAB99, LAB46 ####Scheduler Conveyor: SHENA GUERIN ([id number])[facility] [place] ([facility])[address] [place] [address] [place] AST [Catalytic activity/Vol] 104 U/L High <34 [facility] Comment on above: Performed By: #### L AB103, LAB17, LAB99, LAB46 ####Scheduler Conveyor: SHENA GUERIN ([phone])[facility] [place] ([facility])[address] [place] [address] [place] Bilirubin [Mass/Vol] 0.8 mg/dL Normal <1.2 [facility] Comment on above: Performed By: #### L AB103, LAB17, LAB99, LAB46 ####Scheduler Conveyor: SHENA GUERIN ([phone])[facility] [place] ([facility])[address] [place] [address] [place] Calcium [Mass/Vol] 9.5 mg/dL Normal 8.4-10.2 [facility] Comment on above: Performed By: #### L AB103, LAB17, LAB99, LAB46 ####Scheduler Conveyor: SHENA GUERIN ([phone])[facility] [place] ([facility])[address] [place] [address] [place] Chloride [Moles/Vol] 105 mmol/L Normal 98-107 [facility] Comment on above: Performed By: #### Iggy ABSriram, LAB17, LAB99, LAB46 ####Scheduler Conveyor: SHENA GUERIN ([phone])[facility] [place] ([facility]LAB)[address] [place] [address] [facility] CO2 [Moles/Vol] 24 mmol/L Normal 22-29 [facility] Comment on above: Performed By: #### Iggy ABSriram, LAB17, LAB99, LAB46 ####Scheduler Conveyor: SHENA GUERIN ([phone])[facility] [place] ([facility])[address] [place] [id number] [facility] Creatinine [Mass/Vol] 0.71 mg/dL Low 0.72-1.25 [facility] Comment on above: Performed By: #### Iggy MCDONALD, LAB17, LAB99, LAB46 ####Scheduler Conveyor: SHENA GUERIN ([phone])[facility] [place] ([facility])[address] [place] [address] [facility] GLOMERULAR FILTRATION RATE ML/MIN/1.73 SQ M.PREDICTED >90.0 Normal >60.0 [facility] Comment on above: Result Comment: Calc ulation based on the Chronic Kidney Disease Epidemiology Collaboration (CKD-EPI) equation refit without adjustment for race Performed By: #### Iggy MCDONALD, LAB17, LAB99, LAB46 ####Scheduler Conveyor: SHENA GUERIN ([phone])[facility] [place] [address] [place] Glucose [Mass/Vol] 107 mg/dL High 74-100 [facility] Comment on above: Performed By: #### Iggy AB103, LAB17, LAB99, LAB46 ####Scheduler Conveyor: SHENA GUERIN ([id number])[facility] [place] [address] [place] Potassium [Moles/Vol] 3.9 mmol/L Normal 3.5-5.1 [facility] Comment on above: Result Comment: [facility] potassium values may be up to 0.5 mmol/L lower than serum values. Performed By: #### L AB103, LAB17, LAB99, LAB46 ####Scheduler Conveyor: SHENA GUERIN ([phone])[facility])[address] [place] [id number] [facility] Protein [Mass/Vol] 8.2 g/dL Normal 6.4-8.3 [facility] Comment on above: Performed By: #### L AB103, LAB17, LAB99, LAB46 ####Scheduler Conveyor: SHENA GUERIN ([phone])[facility] ([facility])[address] [place] [place] [id number] [facility] Sodium [Moles/Vol] 143 mmol/L Normal 136-145 [facility] Comment on above: Performed By: #### L AB103, LAB17, LAB99, LAB46 ####Scheduler Conveyor: SHENA GUERIN ([phone])[facility] ([facility])[address] [place] [address] Urea nitrogen [Mass/Vol] 3 mg/dL Low 8-21 [facility] Comment on above: Performed By: #### L AB103, LAB17, LAB99, LAB46 ####Scheduler Conveyor: SHENA GUERIN ([phone])[facility] ([facility])[address] [id number] [facility] CT Abdomen and Pelvis W cont rast Ellen 06-12-2024 Radiology Study observation (narrative) [facility] Comprehensive metabolic 1998 panelon 06-12-2024 Albumin [Mass/Vol] 3.9 g/dL 3.5 - 5.0 g/dL [facility] ALP [Catalytic activity/Vol] 176 U/L High 40 - 150 U/L [facility] ALT [Catalytic activity/Vol] 64 U/L High NINF - 40 U/L [facility] Anion gap [Moles/Vol] 14 mmol/L High 3 - 13 mmol/L [facility] AST [Catalytic activity/Vol] 104 U/L High NINF - 34 U/L [facility] Bilirubin [Mass/Vol] 0.8 mg/dL NINF - 1.2 mg/dL [facility] Calcium [Mass/Vol] 9.5 mg/dL 8.4 - 10. 2 mg/dL [facility] Chloride [Moles/Vol] 105 mmol/L 98 - 10 7 mmol/L [facility] CO2 [Moles/Vol] 24 mmol/L 22 - 29 mmol/L [facility] Creatinine [Mass/Vol] 0.71 mg/dL Low 0.72 - 1.25 mg/dL [facility] GFR/1.73 sq M.predicted (S/P/Bld) [Vol rate/Area] - PINF [facility] Comment on above: Calculation based on the Chronic Kidney Disease Epidemiology Collaboration (CKD-EPI) equation refit without adjustment for race Glucose [Mass/Vol] 107 mg/dL High 74 - 100 mg/dL [facility] Potassium [Moles/Vol] 3.9 mmol/L 3.5 - 5.1 mmol/L [facility] Comment on above: Plasma potassium víctor ues may be up to 0.5 mmol/L lower than serum values. Protein [Mass/Vol] 8.2 g/dL 6.4 - 8.3 g/dL [facility] Sodium [Moles/Vol] 143 mmol/L 136 - 145 mmol/L [facility] Urea nitrogen [Mass/Vol] 3 mg/dL Low 8 - 21 mg/dL [facility] ED Provider Noteon ED Provider Note Normal [facility] ETHANOLon 06-12-2024 ETHANOL IN SER/PLAS 43 mg/dL High <10 [facility] Comment on above: Result Comment: ORDE R COMMENTS:VOICE PATHOLOGIST depression is seen >100 mg/dL.NOTE: This result is for medical treatment only. Analysis performed using non-forensic procedures. Performed By: #### L AB103, LAB17, LAB99, LAB46 ####Scheduler Conveyor: SHENA GUERIN ([id number])[facility] ([facility])[address] [place] [address] Ethanol (Bld) [Mass/Vol]on 0 06-12-2024 Ethanol [Mass/Vol] 43 mg/dL High NINF - 10 mg/dL [facility] VOICE PATHOLOGIST depression is se en >100 mg/dL. NOTE: This result is for medical treatment only. Analysis performed using non-forensic procedures. [facility] LIPASEon 06-12-2024 Lipase [Catalytic activity/Vol] 48 U/L Normal <55 [facility] Comment on above: Performed By: #### L AB103, LAB17, LAB99, LAB46 ####Scheduler Conveyor: SHENA GUERIN ([id number])[facility] ([facility])[address] Laboratory - Chemistry and C hemistry - challengeon 06-12-2024 Lipase [Catalytic activity/Vol] 48 U/L NINF - 55 U/L [facility] Magnesium [Mass/Vol] 2 mg/dL 1.6 - 2 .6 mg/dL [facility] MAGNESIUMon 06-12-2024 Magnesium [Mass/Vol] 2.0 mg/dL Normal 1.6-2.6 [facility] Comment on above: Result Comment: PIEDAD R COMMENTS:Higher values can be expected in females during menses. Performed By: #### L AB103, LAB17, LAB99, LAB46 ####Scheduler Conveyor: SHENA GUERIN ([phone])[facility] ([facility])[address] Magnesium [Mass/Vol]on 06-12 Higher values can be expected in females during menses. [facility] No Panel Informationon 06-12 Interpretation and review of laboratory results Abnormal [facility] Interpretation and review of laboratory results Normal [facility] BASIC METABOLIC PANELon 05-11 Anion gap [Moles/Vol] 17 mmol/L High 3-13 [facility] Comment on above: Performed By: #### L AB20, LAB15, LAB99 ####Scheduler Conveyor: SHENA GUERIN ([id number])[facility] ([facility])[address] [place] [address] [facility] Calcium [Mass/Vol] 9.7 mg/dL Normal 8.4-10.2 [facility] Comment on above: Performed By: #### Iggy AB20, LAB15, LAB99 ####Scheduler Conveyor: SHENA GUERIN ([id number])[facility] ([facility])[address] [place] [address] [place] Chloride [Moles/Vol] 101 mmol/L Normal 98-107 [facility] Comment on above: Performed By: #### L AB20, LAB15, LAB99 ####Scheduler Conveyor: SHENA GUERIN ([id number])[facility] ([facility])[address] CO2 [Moles/Vol] 22 mmol/L Normal 22-29 [facility] Comment on above: Performed By: #### Iggy AB20, LAB15, LAB99 ####Scheduler Conveyor: SHENA GUERIN ([id number])[facility] ([facility])[address] [address] [place] Creatinine [Mass/Vol] 0.66 mg/dL Low 0.72-1.25 [facility] Comment on above: Performed By: #### L AB20, LAB15, LAB99 ####Scheduler Conveyor: SHENA GUERIN ([phone])[facility] ([facility])[address] [address] [facility] GLOMERULAR FILTRATION RATE ML/MIN/1.73 SQ M.PREDICTED >90.0 Normal >60.0 [facility] Comment on above: Result Comment: Calc ulation based on the Chronic Kidney Disease Epidemiology Collaboration (CKD-EPI) equation refit without adjustment for race Performed By: #### L AB20, LAB15, LAB99 ####Scheduler Conveyor: SHENA GUERIN ([phone])[facility] ([facility])[address] [id number] [place] Glucose [Mass/Vol] 127 mg/dL High 74-100 [facility] Comment on above: Performed By: #### L AB20, LAB15, LAB99 ####Scheduler Conveyor: SHENA GUERIN ([id number])[facility] ([facility])[address] [place] [address] [facility] Potassium [Moles/Vol] 3.4 mmol/L Low 3.5-5.1 [facility] Comment on above: Result Comment: [facility] potassium values may be up to 0.5 mmol/L lower than serum values. Performed By: #### L AB20, LAB15, LAB99 ####Scheduler Conveyor: SHENA GUERIN ([id number])[facility])[address] [address] [facility] Sodium [Moles/Vol] 140 mmol/L Normal 136-145 [facility] Comment on above: Performed By: #### L AB20, LAB15, LAB99 ####Scheduler Conveyor: SHENA GUERIN ([id number])[facility])[address] [place] [address] [facility] Urea nitrogen [Mass/Vol] 7 mg/dL Low 8-21 [facility] Comment on above: Performed By: #### L AB20, LAB15, LAB99 ####Scheduler Conveyor: SHENA GUERIN ([id number])[facility] ([facility])[address] [id number] [facility] Basic metabolic 1998 panelon 06-04-2024 Anion gap [Moles/Vol] 17 mmol/L High 3 - 13 mmol/L [facility] Calcium [Mass/Vol] 9.7 mg/dL 8.4 - 10. 2 mg/dL [facility] Chloride [Moles/Vol] 101 mmol/L 98 - 10 7 mmol/L [facility] CO2 [Moles/Vol] 22 mmol/L 22 - 29 mmol/L [facility] Creatinine [Mass/Vol] 0.66 mg/dL Low 0.72 - 1.25 mg/dL [facility] GFR/1.73 sq M.predicted (S/P/Bld) [Vol rate/Area] - PINF [facility] Comment on above: Calculation based on the Chronic Kidney Disease Epidemiology Collaboration (CKD-EPI) equation refit without adjustment for race Glucose [Mass/Vol] 127 mg/dL High 74 - 100 mg/dL [facility] Potassium [Moles/Vol] 3.4 mmol/L Low 3.5 - 5.1 mmol/L [facility] Comment on above: Plasma potassium víctor ues may be up to 0.5 mmol/L lower than serum values. Sodium [Moles/Vol] 140 mmol/L 136 - 145 mmol/L [facility] Urea nitrogen [Mass/Vol] 7 mg/dL Low 8 - 21 mg/dL [facility] CBC W Auto Differential pane l (Bld)on 06-04-2024 Basophils (Bld) [#/Vol] 0.1 10*3/uL 0.0 - 0.2 10*3/uL [facility] Basophils/100 WBC (Bld) 0.7 % 0.0 - 2.0 % [facility] Eosinophils (Bld) [#/Vol] 0.1 10*3/uL 0.0 - 0.5 10*3/uL [facility] Eosinophils/100 WBC (Bld) 1.5 % 0.0 - 6.0 % [facility] Erythrocyte distribution width (RBC) [Ratio] 14.6 % 11.5 - 15.0 % [facility] Hematocrit (Bld) [Volume fraction] 43.2 % 40.0 - 52.0 % [facility] Hemoglobin (Bld) [Mass/Vol] 14.2 g/dL 13.0 - 18.0 g/dL [facility] Immature granulocytes (Bld) [#/Vol] 0 10*3/uL NINF - 0.1 10*3/uL [facility] Immature granulocytes/100 WBC (Bld) 0.3 % 0.0 - 2.0 % [facility] Interpretation and review of laboratory results Normal [facility] Lymphocytes (Bld) [#/Vol] 1.9 10*3/uL 1.0 - 4.3 10*3/uL [facility] Lymphocytes/100 WBC (Bld) 26.3 % 15.0 - 45.0 % [facility] MCH (RBC) [Entitic mass] 30.6 pg 26.0 - 34.0 pg [facility] MCHC (RBC) [Mass/Vol] 32.9 % 30.5 - 36.0 % [facility] MCV (RBC) [Entitic vol] 93.1 fL 77.0 - 99.0 fL [facility] Monocytes (Bld) [#/Vol] 0.5 10*3/uL 0.0 - 0.9 10*3/uL [facility] Monocytes/100 WBC (Bld) 7.1 % 5.0 - 13.0 % [facility] Neutrophils (Bld) [#/Vol] 4.7 10*3/uL 1.8 - 7.5 10*3/uL [facility] Neutrophils/100 WBC (Bld) 64.1 % 38.0 - 82.0 % [facility] Nucleated RBC/100 WBC (Bld) [Ratio] 0 % [facility] Platelet mean volume (Bld) [Entitic vol] 10.1 fL 9.0 - 12.7 fL [facility] Comment on above: MPV is a calculated measurement using platelet volume ratio Platelets (Bld) [#/Vol] 281 10*3/uL 140 - 440 10*3/uL [facility] RBC (Bld) [#/Vol] 4.64 10*6/uL 4.40 - 5.9 0 10*6/uL [facility] WBC (Bld) [#/Vol] 7.3 10*3/uL 3.6 - 10.7 10*3/uL [facility] CBC WITH AUTO DIFFERENTIALon 06-04-2024 Basophils (Bld) [#/Vol] 0.1 10*3/uL Normal 0.0-0.2 [facility] Comment on above: Performed By: #### L [id number] ####Scheduler Conveyor: SHENA GUERIN ([id number])[facility] [employer] ([facility])[address] [place] [address] Basophils/100 WBC (Bld) 0.7 % Normal 0.0-2.0 [facility] Comment on above: Performed By: #### L [id number] ####Scheduler Conveyor: SHENA GUERIN ([id number])[facility] [employer] ([facility])[address] Eosinophils (Bld) [#/Vol] 0.1 10*3/uL Normal 0.0-0.5 [facility] Comment on above: Performed By: #### L [id number] ####Scheduler Conveyor: SHENA GUERIN ([phone])[facility]ENTER[facility] ([facility])[address] Eosinophils/100 WBC (Bld) 1.5 % Normal 0.0-6.0 [facility] Comment on above: Performed By: #### L [id number] ####Scheduler Conveyor: SHENA GUERIN ([id number])[facility]3[employer] [facility] ([facility])[address] Erythrocyte distribution width (RBC) [Ratio] 14.6 % Normal 11.5-15.0 [facility] Comment on above: Performed By: #### L [id number] ####Scheduler Conveyor: SHENA GUERIN ([id number])[facility] [employer] [facility] ([facility])[address] Hematocrit (Bld) [Volume fraction] 43.2 % Normal 40.0-52.0 [facility] Comment on above: Performed By: #### L [id number] ####Scheduler Conveyor: SHENA GUERIN ([id number])[facility]3[employer] [facility] ([facility])[address] Hemoglobin (Bld) [Mass/Vol] 14.2 g/dL Normal 13.0-18.0 [facility] Comment on above: Performed By: #### L [id number] ####Scheduler Conveyor: SHENA GUERIN ([id number])[facility] [employer] [facility] ([facility])[address] IMMATURE GRANS % 0.3 % Normal 0.0-2.0 [facility] Comment on above: Performed By: #### L [id number] ####Scheduler Conveyor: SHENA CHAMPAGNEBETTY ([id number])[facility] ([facility])[address] IMMATURE GRANS ABSOLUTE 0.0 10*3/uL Normal <0.1 [facility] Comment on above: Performed By: #### L [id number] ####Scheduler Conveyor: SHENA CHAMPAGNEBETTY ([id number])[facility] ([facility])[address] Lymphocytes (Bld) [#/Vol] 1.9 10*3/uL Normal 1.0-4.3 [facility] Comment on above: Performed By: #### L [id number] ####Scheduler Conveyor: SHENA CHAMPAGNEBETTY ([id number])[facility] ([facility])[address] Lymphocytes/100 WBC (Bld) 26.3 % Normal 15.0-45.0 [facility] Comment on above: Performed By: #### L [id number] ####Scheduler Conveyor: SHENA CHAMPAGNEBETTY ([id number])[facility] ([facility])[address] MCH (RBC) [Entitic mass] 30.6 pg Normal 26.0-34.0 [facility] Comment on above: Performed By: #### L [id number] ####Scheduler Conveyor: SHENA CHAMPAGNEBETTY ([id number])[facility] ([facility])[address] MCHC 32.9 % Normal 30.5-36.0 [facility] Comment on above: Performed By: #### L [id number] ####Scheduler Conveyor: SHENA GUERIN ([id number])[facility] ([facility])[address] MCV (RBC) [Entitic vol] 93.1 fL Normal 77.0-99.0 [facility] Comment on above: Performed By: #### L [id number] ####Scheduler Conveyor: SHENA GUERIN ([id number])[facility] ([facility])[address] [place] [address] [facility] Monocytes (Bld) [#/Vol] 0.5 10*3/uL Normal 0.0-0.9 [facility] Comment on above: Performed By: #### L [id number] ####Scheduler Conveyor: SHENA GUERIN ([id number])[facility] ([facility])[address] [address] [facility] Monocytes/100 WBC (Bld) 7.1 % Normal 5.0-13.0 [facility] Comment on above: Performed By: #### L [id number] ####Scheduler Conveyor: SHENA GUERIN ([id number])[facility] ([facility])[address] [place] [address] [facility] NEUTROPHILS ABSOLUTE 4.7 10*3/uL Normal 1.8-7.5 [facility] Comment on above: Performed By: #### L [id number] ####Scheduler Conveyor: SHENA GUERIN ([id number])[facility] ([facility])[address] [place] [address] [place] Neutrophils/100 WBC (Bld) 64.1 % Normal 38.0-82.0 [facility] Comment on above: Performed By: #### L [id number] ####Scheduler Conveyor: SHENA GUERIN ([id number])[facility] ([facility])[address] [place] [address] [place] NRBC 0.0 /100 WBCs Normal 0.0-2.0 [facility] Comment on above: Performed By: #### L [id number] ####Scheduler Conveyor: SHENA GUERIN ([id number])[facility] [employer] [facility] ([facility])[address] [place] [place] [address] [place] [address] Platelet mean volume (Bld) [Entitic vol] 10.1 fL Normal 9.0-12.7 [facility] Comment on above: Result Comment: MPV is a calculated measurement using platelet volume ratio Performed By: #### L [id number] ####Scheduler Conveyor: SHENA GUERIN ([id number])[facility] Ill[facility]arEC[facility]3[employer] [facility] ([facility])[address] Platelets (Bld) [#/Vol] 281 10*3/uL Normal 140-440 [facility] Comment on above: Performed By: #### L [id number] ####Scheduler Conveyor: SHENA GUERIN ([id number])[facility]3[employer] [facility] ([facility])[address] RBC (Bld) [#/Vol] 4.64 10*6/uL Normal 4.40-5.90 [facility] Comment on above: Performed By: #### L [id number] ####Scheduler Conveyor: SHENA GUERIN ([id number])[facility] IllumagearECU HEALTH EDGECOMBE HOSPITALMiiraS ([facility])[address] WBC (Bld) [#/Vol] 7.3 10*3/uL Normal 3.6-10.7 [facility] Comment on above: Performed By: #### L [id number] ####Scheduler Conveyor: SHENA GUERIN ([id number])[facility] IllumagearECU HEALTH EDGECOMBE HOSPITALMiiraS ([facility])[address] ED Nursing Noteon 06-04-2024 ED Nursing Note Pt seen recently, dx pancreatitis, sts sx ongoing with abd pain that worsens with eating/drinking, N/V. Referred to ER by Negative resp distress, positive full sentences, negative diaphoresis, positive steady gait. Times are approximate. Normal [facility] ED Provider Noteon ED Provider Note Normal [facility] HEPATIC FUNCTION PANELon Albumin [Mass/Vol] 3.9 g/dL Normal 3.5-5.0 [facility] Comment on above: Performed By: #### L AB20, LAB15, LAB99 ####Scheduler Conveyor: SHENA CHAMPAGNEBETTY ([phone])[facility] ([facility])[address] [place] [address] [place] ALP [Catalytic activity/Vol] 226 U/L High 40-150 [facility] Comment on above: Performed By: #### L AB20, LAB15, LAB99 ####Scheduler Conveyor: SHENA GUERIN ([phone])[facility] ([facility])[address] [place] [address] [place] ALT [Catalytic activity/Vol] 73 U/L High <40 [facility] Comment on above: Performed By: #### L AB20, LAB15, LAB99 ####Scheduler Conveyor: SHENA GUERIN ([id number])[facility] ([facility])[address] [place] [address] [place] AST [Catalytic activity/Vol] 104 U/L High <34 [facility] Comment on above: Performed By: #### L AB20, LAB15, LAB99 ####Scheduler Conveyor: SHENA GUERIN ([id number])[facility] ([facility])[address] [place] [address] [place] Bilirubin [Mass/Vol] 1.4 mg/dL High <1.2 [facility] Comment on above: Performed By: #### L AB20, LAB15, LAB99 ####Scheduler Conveyor: SHENA GUERIN ([id number])[facility] ([facility])[address] [place] [address] [place] Bilirubin.indirect [Mass/Vol] 0.9 mg/dL High <0.5 [facility] Comment on above: Performed By: #### L AB20, LAB15, LAB99 ####Scheduler Conveyor: SHENA GUERIN ([id number])[facility] ([facility])[address] [place] [address] [facility] Protein [Mass/Vol] 8.3 g/dL Normal 6.4-8.3 [facility] Comment on above: Result Comment: Seru m protein values are higher than plasma values. Samples from recumbent persons are lower by up to 0.5 g/dL as compared to ambulatory persons. After 60 years values are lower by up to 0.2 g/dL. Performed By: #### L AB20, LAB15, LAB99 ####Scheduler Conveyor: SHENA DEL ROSARIOHAMIDA ([id number])[facility] ([facility])[address] [place] [address] [facility] Hepatic function 2000 panelo n 06-04-2024 Albumin [Mass/Vol] 3.9 g/dL 3.5 - 5.0 g/dL [facility] ALP [Catalytic activity/Vol] 226 U/L High 40 - 150 U/L [facility] ALT [Catalytic activity/Vol] 73 U/L High NINF - 40 U/L [facility] AST [Catalytic activity/Vol] 104 U/L High NINF - 34 U/L [facility] Bilirubin [Mass/Vol] 1.4 mg/dL High [facility] MARYVALEF - 1.2 mg/dL [facility] Bilirubin.conjugated [Mass/Vol] 0.9 mg/dL High [facility] MARYVALEF - 0.5 mg/dL [facility] Protein [Mass/Vol] 8.3 g/dL 6.4 - 8.3 g/dL [facility] Comment on above: Serum protein values are higher than plasma values. Samples from recumbent persons are lower by up to 0.5 g/dL as compared to ambulatory persons. After 60 years values are lower by up to 0.2 g/dL. LIPASEon 06-04-2024 Lipase [Catalytic activity/Vol] 117 U/L High <55 [facility] Comment on above: Performed By: #### L AB20, LAB15, LAB99 ####Scheduler Conveyor: SHENA GUERIN ([id number])[facility] ([facility])[address] [place] [address] [facility] Laboratory - Chemistry and C hemistry - challengeon 06-04-2024 Lipase [Catalytic activity/Vol] 117 U/L High NINF - 55 U/L [facility] No Panel Informationon 06-04 Interpretation and review of laboratory results Abnormal [facility] 36on 06-03-2024 36 Normal [facility] 36 Normal [facility] 36 Normal [facility] 37on 06-01-2024 37 --complete alcohol cessation --tobacco cessation --MRI abdomen --blood work to be completed --follow up after above is completed Normal [facility] Progress Noteon 06-01-2024 Progress Note Normal [facility] CBC W Auto Differential pane l (Bld)on 05-30-2024 Basophils (Bld) [#/Vol] 0.1 10*3/uL 0.0 - 0.2 10*3/uL [facility] Basophils/100 WBC (Bld) 0.7 % 0.0 - 2.0 % [facility] Eosinophils (Bld) [#/Vol] 0.1 10*3/uL 0.0 - 0.5 10*3/uL [facility] Eosinophils/100 WBC (Bld) 1.3 % 0.0 - 6.0 % [facility] Erythrocyte distribution width (RBC) [Ratio] 14.6 % 11.5 - 15.0 % [facility] Hematocrit (Bld) [Volume fraction] 40.4 % 40.0 - 52.0 % [facility] Hemoglobin (Bld) [Mass/Vol] 13.5 g/dL 13.0 - 18.0 g/dL [facility] Immature granulocytes (Bld) [#/Vol] 0 10*3/uL NINF - 0.1 10*3/uL [facility] Immature granulocytes/100 WBC (Bld) 0.3 % 0.0 - 2.0 % [facility] Interpretation and review of laboratory results Normal [facility] Lymphocytes (Bld) [#/Vol] 2.5 10*3/uL 1.0 - 4.3 10*3/uL [facility] Lymphocytes/100 WBC (Bld) 33 % 15.0 - 45.0 % [facility] MCH (RBC) [Entitic mass] 30.3 pg 26.0 - 34.0 pg [facility] MCHC (RBC) [Mass/Vol] 33.4 % 30.5 - 36.0 % [facility] MCV (RBC) [Entitic vol] 90.8 fL 77.0 - 99.0 fL [facility] [facility] Monocytes (Bld) [#/Vol] 0.7 10*3/uL 0.0 - 0.9 10*3/uL [facility] Monocytes/100 WBC (Bld) 8.8 % 5.0 - 13.0 % [facility] Neutrophils (Bld) [#/Vol] 4.2 10*3/uL 1.8 - 7.5 10*3/uL [facility] Neutrophils/100 WBC (Bld) 55.9 % 38.0 - 82.0 % [facility] Nucleated RBC/100 WBC (Bld) [Ratio] 0 % [facility] Platelet mean volume (Bld) [Entitic vol] 10.2 fL 9.0 - 12.7 fL [facility] Comment on above: MPV is a calculated measurement using platelet volume ratio Platelets (Bld) [#/Vol] 234 10*3/uL 140 - 440 10*3/uL [facility] RBC (Bld) [#/Vol] 4.45 10*6/uL 4.40 - 5.9 0 10*6/uL [facility] WBC (Bld) [#/Vol] 7.5 10*3/uL 3.6 - 10.7 10*3/uL [facility] CBC WITH AUTO DIFFERENTIALon 05-30-2024 Basophils (Bld) [#/Vol] 0.1 10*3/uL Normal 0.0-0.2 [facility] Comment on above: Performed By: #### L [id number] ####Scheduler Conveyor: SHENA GUERIN ([phone])[facility] ([facility])[address] [place] [address] Basophils/100 WBC (Bld) 0.7 % Normal 0.0-2.0 [facility] Comment on above: Performed By: #### L [id number] ####Scheduler Conveyor: SHENA GUERIN ([id number])[facility]ENTER[facility] ([facility])[address] Eosinophils (Bld) [#/Vol] 0.1 10*3/uL Normal 0.0-0.5 [facility] Comment on above: Performed By: #### L [id number] ####Scheduler Conveyor: SHENA GUERIN ([phone])[facility] ([facility])[address] Eosinophils/100 WBC (Bld) 1.3 % Normal 0.0-6.0 [facility] Comment on above: Performed By: #### L [id number] ####Scheduler Conveyor: SHENA GUERIN ([id number])[facility]3[employer] CROSSINGS ([facility])[address] Erythrocyte distribution width (RBC) [Ratio] 14.6 % Normal 11.5-15.0 [facility] Comment on above: Performed By: #### L [id number] ####Scheduler Conveyor: SHENA GUERIN ([phone])[facility]3[employer] CROSSINGS ([facility])[address] Hematocrit (Bld) [Volume fraction] 40.4 % Normal 40.0-52.0 [facility] Comment on above: Performed By: #### L [id number] ####Scheduler Conveyor: SHENA GUERIN ([id number])[facility] CROSSINGS ([facility])[address] Hemoglobin (Bld) [Mass/Vol] 13.5 g/dL Normal 13.0-18.0 [facility] Comment on above: Performed By: #### L [id number] ####Scheduler Conveyor: SHENA GUERIN ([id number])[facility] ([facility])[address] IMMATURE GRANS % 0.3 % Normal 0.0-2.0 [facility] Comment on above: Performed By: #### L [id number] ####Scheduler Conveyor: SHENA GUERIN ([phone])[facility]A [employer] [facility] ([facility])[address] IMMATURE GRANS ABSOLUTE 0.0 10*3/uL Normal <0.1 [facility] Comment on above: Performed By: #### L [id number] ####Scheduler Conveyor: SHENA GUERIN ([id number])[facility] ([facility])[address] Lymphocytes (Bld) [#/Vol] 2.5 10*3/uL Normal 1.0-4.3 [facility] Comment on above: Performed By: #### L [id number] ####Scheduler Conveyor: SHENA GUERIN ([id number])[facility]A [facility] ([facility])[address] Lymphocytes/100 WBC (Bld) 33.0 % Normal 15.0-45.0 [facility] Comment on above: Performed By: #### L [id number] ####Scheduler Conveyor: SHENA GUERIN ([id number])[facility] ([facility])[address] MCH (RBC) [Entitic mass] 30.3 pg Normal 26.0-34.0 [facility] Comment on above: Performed By: #### L [id number] ####Scheduler Conveyor: SHENA GUERIN ([phone])[facility] ([facility])[address] MCHC 33.4 % Normal 30.5-36.0 [facility] Comment on above: Performed By: #### L [id number] ####Scheduler Conveyor: SHENA GUERIN ([phone])[facility]IT[facility] ([facility])[address] [place] [address] [place] MCV (RBC) [Entitic vol] 90.8 fL Normal 77.0-99.0 [facility] Comment on above: Performed By: #### L [id number] ####Scheduler Conveyor: SHENA GUERIN ([id number])[facility] ([facility])[address] [place] [address] [facility] Monocytes (Bld) [#/Vol] 0.7 10*3/uL Normal 0.0-0.9 [facility] Comment on above: Performed By: #### L [id number] ####Scheduler Conveyor: SHENA GUERIN ([id number])[facility] ([facility])[address] Monocytes/100 WBC (Bld) 8.8 % Normal 5.0-13.0 [facility] Comment on above: Performed By: #### L [id number] ####Scheduler Conveyor: SHENA GUERIN ([id number])[facility] ([facility])[address] [place] [address] [place] NEUTROPHILS ABSOLUTE 4.2 10*3/uL Normal 1.8-7.5 [facility] Comment on above: Performed By: #### L [id number] ####Scheduler Conveyor: SHENA GUERIN ([id number])[facility] ([facility])[address] [place] [address] [place] Neutrophils/100 WBC (Bld) 55.9 % Normal 38.0-82.0 [facility] Comment on above: Performed By: #### L [id number] ####Scheduler Conveyor: SHENA GUERIN ([phone])[facility] ([facility])[address] [place] [address] [place] NRBC 0.0 /100 WBCs Normal 0.0-2.0 [facility] Comment on above: Performed By: #### L [id number] ####Scheduler Conveyor: SHENA GUERIN ([id number])[facility] HOSPITALViridis EnergyS ([facility]LAB)[address] [place], [place] [id number] [place] [address] Platelet mean volume (Bld) [Entitic vol] 10.2 fL Normal 9.0-12.7 [facility] Comment on above: Result Comment: MPV is a calculated measurement using platelet volume ratio Performed By: #### L [id number] ####Scheduler Conveyor: SHENA GUERIN ([phone])[facility] CROSSINGS ([facility])[address] Platelets (Bld) [#/Vol] 234 10*3/uL Normal 140-440 [facility] Comment on above: Performed By: #### L [id number] ####Scheduler Conveyor: SHENA GUERIN ([id number])[facility] [employer] ([facility])[address] RBC (Bld) [#/Vol] 4.45 10*6/uL Normal 4.40-5.90 [facility] Comment on above: Performed By: #### L [id number] ####Scheduler Conveyor: SHENA GUERIN ([id number])[facility] [employer] ([facility])[address] WBC (Bld) [#/Vol] 7.5 10*3/uL Normal 3.6-10.7 [facility] Comment on above: Performed By: #### L [id number] ####Scheduler Conveyor: SHENA GUERIN ([id number])[facility] [employer] ([facility])[address] COMPLETE URINALYSISon 2024 BACTERIA (#/HPF) IN URINE Negative Normal Negative [facility] Comment on above: Performed By: #### L [id number] ####Scheduler Conveyor: SHENA GUERIN ([id number])[facility] [employer] ([facility])[address] [place] [address] [facility] BILIRUBIN, TOTAL PRESENCE IN URINE Negative Normal Negative [facility] Comment on above: Performed By: #### L [id number] ####Scheduler Conveyor: SHENA UNDERWOODCER ([phone])[facility] CROSSINGS ([facility])[address] [place] [address] [facility] Clarity (U) Clear Normal Clear [facility] Comment on above: Performed By: #### L [id number] ####Scheduler Conveyor: SHENA GUERIN ([phone])[facility] CROSSINGS ([facility])[address] [place], [place] [address] [facility] Color (U) Yellow Normal Lt. Yellow [facility] Comment on above: Performed By: #### L [id number] ####Scheduler Conveyor: SHENA CHAMPAGNEBETTY ([id number])[facility] CROSSINGS ([facility])[address] GLUCOSE (MG/DL) IN URINE Normal Normal Normal (<70) [facility] Comment on above: Performed By: #### L [id number] ####Scheduler Conveyor: SHENA GUERIN ([id number])[facility] CROSSINGS ([facility])[address] [place] [address] [place] HEMOGLOBIN PRESENCE IN URINE Negative Normal Negative [facility] Comment on above: Performed By: #### L [id number] ####Scheduler Conveyor: SHENA GUERIN ([id number])[facility] CROSSINGS ([facility])[address] [place] [address] [place] Ketones Ql (U) Trace Abnormal Negative [facility] Comment on above: Performed By: #### L [id number] ####Scheduler Conveyor: SHENA GUERIN ([id number])[facility] CROSSINGS ([facility])[address] [place] [address] [place] LEUKOCYTE ESTERASE PRESENCE IN URINE BY TEST STRIP Negative Normal Negative [facility] Comment on above: Performed By: #### L [id number] ####Scheduler Conveyor: SHENAPILAR GUERIN ([id number])[facility]A [facility] ([facility]LAB)[address] [place] [address] [place] MUCUS (#/LPF) IN URINE SEDIMENT Moderate Abnormal Negative [facility] Comment on above: Performed By: #### L [id number] ####Scheduler Conveyor: SHENA APOORVA ([id number])[facility]A [facility] ([facility]LAB)[address] NITRITE PRESENCE IN URINE Negative Normal Negative [facility] Comment on above: Performed By: #### L [id number] ####Scheduler Conveyor: SHENAPILAR GUERIN ([id number])[facility]ENTERA [facility] CENTERITAGE [facility] ([facility])[address] pH (U) 7.0 [pH] Normal 5.0-8.0 [facility] Comment on above: Performed By: #### L [id number] ####Scheduler Conveyor: SHENAPILAR GUERIN ([phone])[facility]ENTERA [facility] CENTERITAGE [facility] ([facility])[address] Protein (U) [Mass/Vol] 10 mg/dL Abnormal Negative [facility] Comment on above: Performed By: #### L [id number] ####Scheduler Conveyor: SHENA APOORVA ([phone])[facility] ([facility])[address] [place] [address] [place] RBC (#/HPF) IN URINE SEDIMENT 0-2 Normal 0-2 [facility] Comment on above: Performed By: #### L [id number] ####Scheduler Conveyor: SHENA APOORVA ([id number])[facility] CROSSINGS ([facility])[address] Specific gravity (U) [Rel density] 1.013 Normal 1.005-1.030 [facility] Comment on above: Performed By: #### L [id number] ####Scheduler Conveyor: SHENA GUERIN ([id number])[facility] CROSSINGS ([facility])[address] Specimen volume (U) 12 mL Normal [facility] Comment on above: Performed By: #### L [id number] ####Scheduler Conveyor: SHENA CHAMPAGNEBETTY ([id number])[facility] CROSSINGS ([facility])[address] SQUAMOUS EPITHELIAL CELLS (#/HPF) IN URINE SEDIMENT Negative Normal 3-5 [facility] Comment on above: Performed By: #### L [id number] ####Scheduler Conveyor: SHENA GUERIN ([phone])[facility] CROSSINGS ([facility])[address] UROBILINOGEN (MG/DL) IN URINE 2 mg/dL Abnormal Normal (0-1) [facility] Comment on above: Performed By: #### L [id number] ####Scheduler Conveyor: SHENA GUERIN ([id number])[facility] CROSSINGS ([facility])[address] WBC (LEUKOCYTE) (#/HPF) IN URINE SEDIMENT 0-2 Normal 0-5 [facility] Comment on above: Performed By: #### L [id number] ####Scheduler Conveyor: SHENA GUERIN ([id number])[facility] CROSSINGS ([facility])[address] COMPREHENSIVE METABOLIC PANE Rylan 05-30-2024 Albumin [Mass/Vol] 3.7 g/dL Normal 3.5-5.0 [facility] Comment on above: Performed By: #### L AB99, LAB17 ####Scheduler Conveyor: SHENA GUERIN ([id number])[facility] CROSSINGS ([facility])[address] ALP [Catalytic activity/Vol] 188 U/L High 40-150 [facility] Comment on above: Performed By: #### L AB99, LAB17 ####Scheduler Conveyor: SHENA GUERIN ([phone])[facility] ([facility])[address] [place] [address] [place] ALT [Catalytic activity/Vol] 89 U/L High <40 [facility] Comment on above: Performed By: #### L AB99, LAB17 ####Scheduler Conveyor: SHENA GUERIN ([id number])[facility] CROSSINGS ([facility])[address] [place] [address] [facility] Anion gap [Moles/Vol] 14 mmol/L High 3-13 [facility] Comment on above: Performed By: #### L AB99, LAB17 ####Scheduler Conveyor: SHENA GUERIN ([phone])[facility] CROSSINGS ([facility])[address] [place] [address] [place] AST [Catalytic activity/Vol] 132 U/L High <34 [facility] Comment on above: Performed By: #### L CLARISSE, LAB17 ####Scheduler Conveyor: SHENA GUERIN ([id number])[facility] ([facility])[address] [place] [address] [place] Bilirubin [Mass/Vol] 1.3 mg/dL High <1.2 [facility] Comment on above: Performed By: #### L AB99, LAB17 ####Scheduler Conveyor: SHENA GUERIN ([phone])[facility] CROSSINGS ([facility])[address] [place] [address] [place] Calcium [Mass/Vol] 9.1 mg/dL Normal 8.4-10.2 [facility] Comment on above: Performed By: #### L AB99, LAB17 ####Scheduler Conveyor: SHENA GUERIN ([phone])[facility] CROSSINGS ([facility])[address] [place] [address] [place] Chloride [Moles/Vol] 103 mmol/L Normal 98-107 [facility] Comment on above: Performed By: #### L AB99, LAB17 ####Scheduler Conveyor: SHENA GUERIN ([phone])[facility] ([facility])[address] [place] [address] [facility] CO2 [Moles/Vol] 20 mmol/L Low 22-29 [facility] Comment on above: Performed By: #### L AB99, LAB17 ####Scheduler Conveyor: SHENA GUERIN ([phone])[facility] ([facility])[address] Creatinine [Mass/Vol] 0.58 mg/dL Low 0.72-1.25 [facility] Comment on above: Performed By: #### L 99, LAB17 ####Scheduler Conveyor: SHENA GUERIN ([phone])[facility] ([facility])[address] [place] [address] GLOMERULAR FILTRATION RATE ML/MIN/1.73 SQ M.PREDICTED >90.0 Normal >60.0 [facility] Comment on above: Result Comment: Calc ulation based on the Chronic Kidney Disease Epidemiology Collaboration (CKD-EPI) equation refit without adjustment for race Performed By: #### L AB99, LAB17 ####Scheduler Conveyor: SHENA GUERIN ([id number])[facility] ([facility])[address] Glucose [Mass/Vol] 100 mg/dL Normal 74-100 [facility] Comment on above: Performed By: #### L AB99, LAB17 ####Scheduler Conveyor: SHENA GUERIN ([phone])[facility] ([facility])[address] [place] [address] [facility] Potassium [Moles/Vol] 3.3 mmol/L Low 3.5-5.1 [facility] Comment on above: Result Comment: Plas ma potassium values may be up to 0.5 mmol/L lower than serum values. Performed By: #### L AB99, LAB17 ####Scheduler Conveyor: SHNEA APOORVA ([phone])[facility] ([facility])[address] Protein [Mass/Vol] 7.5 g/dL Normal 6.4-8.3 [facility] Comment on above: Performed By: #### L AB99, LAB17 ####Scheduler Conveyor: SHENA DEL ROSARIOHAMIDA ([phone])[facility] ([facility])[address] [place] [address] [facility] Sodium [Moles/Vol] 137 mmol/L Normal 136-145 [facility] Comment on above: Performed By: #### L AB99, LAB17 ####Scheduler Conveyor: SHENA DEL ROSARIOHAMIDA ([phone])[facility] ([facility])[address] [place] [address] Urea nitrogen [Mass/Vol] 4 mg/dL Low 8-21 [facility] Comment on above: Performed By: #### L AB99, LAB17 ####Scheduler Conveyor: SHENA DEL ROSARIOHAMIDA ([id number])[facility] ([facility])[address] [place] [address] CT ABDOMEN PELVIS WO IV CONT RASTon 05-30-2024 CT ABDOMEN PELVIS WO IV CONTRAST Normal [facility] CT Abdomen and Pelvis WO con traston 05-30-2024 1. Peripancreatic haziness is redemonstrated, which can be seen in the setting of acute pancreatitis. Correlation with appropriate laboratory values is recommended. 2. Hepatomegaly and hepatic steatosis. Report Dictated on Electronically Signed By: Hitesh Nation MD Electronically Signed Date/Time: 05/30/2024 11:03 PM [facility] Patient Name: RORO CLAIRE : 1985 [...] fracture or destructive osseous lesion is identified. [facility] Hitesh Nation MD - 05/30/2024 [...] Electronically Signed Date/Time: 05/30/2024 11:03 PM EDT [facility] [employer] Radiology Study observation (narrative) [employer] CT Abdomen and Pelvis WO con trastOrdered By: Hitesh Nation on 05-30-2024 [employer] Work Phone: Comprehensive metabolic 1998 panelon 05-30-2024 Albumin [Mass/Vol] 3.7 g/dL 3.5 - 5.0 g/dL [facility] ALP [Catalytic activity/Vol] 188 U/L High 40 - 150 U/L [facility] ALT [Catalytic activity/Vol] 89 U/L High NINF - 40 U/L [facility] Anion gap [Moles/Vol] 14 mmol/L High 3 - 13 mmol/L [facility] AST [Catalytic activity/Vol] 132 U/L High NINF - 34 U/L [facility] Bilirubin [Mass/Vol] 1.3 mg/dL High NINF - 1.2 mg/dL [facility] Calcium [Mass/Vol] 9.1 mg/dL 8.4 - 10. 2 mg/dL [facility] Chloride [Moles/Vol] 103 mmol/L 98 - 10 7 mmol/L [facility] CO2 [Moles/Vol] 20 mmol/L Low 22 - 29 mmol/L [facility] Creatinine [Mass/Vol] 0.58 mg/dL Low 0.72 - 1.25 mg/dL [facility] GFR/1.73 sq M.predicted (S/P/Bld) [Vol rate/Area] - PINF [facility] Comment on above: Calculation based on the Chronic Kidney Disease Epidemiology Collaboration (CKD-EPI) equation refit without adjustment for race Glucose [Mass/Vol] 100 mg/dL 74 - 100 mg/dL [facility] Interpretation and review of laboratory results Abnormal [facility] Potassium [Moles/Vol] 3.3 mmol/L Low 3.5 - 5.1 mmol/L [facility] Comment on above: Plasma potassium víctor ues may be up to 0.5 mmol/L lower than serum values. Protein [Mass/Vol] 7.5 g/dL 6.4 - 8.3 g/dL [facility] Sodium [Moles/Vol] 137 mmol/L 136 - 145 mmol/L [facility] Urea nitrogen [Mass/Vol] 4 mg/dL Low 8 - 21 mg/dL [facility] ED Nursing Noteon 05-30-2024 ED Nursing Note Resp even and unlabored. Able to speak in full sentences. Ambulates without difficulty. Pt c/o left flank pain x 5days. Denies N/V/D, fevers, dysuria. Normal [facility] ED Provider Noteon ED Provider Note Normal [facility] LIPASEon 05-30-2024 Lipase [Catalytic activity/Vol] 37 U/L Normal <55 [facility] Comment on above: Performed By: #### L AB99, LAB17 ####Scheduler Conveyor: SHENA GUERIN ([id number])[facility] ([facility])[address] Laboratory - Chemistry and C hemistry - challengeon 05-30-2024 Lipase [Catalytic activity/Vol] 37 U/L NINF - 55 U/L [facility] Lipase [Catalytic activity/V ol]on 05-30-2024 Interpretation and review of laboratory results Normal [facility] No Panel Informationon 05-30 [facility] Urinalysis complete panel (U )Ordered By: Silvia Prince on 05-30-2024 Bacteria LM.HPF (Urine sed) [#/Area] Negative Negative /HPF [facility] Bilirubin Ql (U) Negative Negative mg/dL [facility] Clarity (U) Clear Clear [facility] Color (U) Yellow Lt. Yellow [facility] Epithelial cells.squamous LM.HPF (Urine sed) [#/Area] Negative [facility] Glucose Ql (U) Normal Normal (<70) mg/dL [facility] Hemoglobin Ql (U) Negative Negative mg/dL [facility] Interpretation and review of laboratory results Abnormal [facility] Ketones (U) [Mass/Vol] Trace Abnormal Negat chan mg/dL [facility] Leukocyte esterase Test strip Ql (U) Negative Negative Teofilo/uL [facility] Mucus LM.HPF (Urine sed) [#/Area] Moderate Abnormal Negative /LPF [facility] Nitrite Ql (U) Negative Negative [facility] pH (U) 7.0 [pH] 5.0 - 8.0 pH [facility] Protein (U) [Mass/Vol] 10 mg/dL Abnormal Negative [facility] RBC LM.HPF (Urine sed) [#/Area] 0-2 [facility] Specific gravity (U) [Rel density] 1.013 1.005 - 1.030 [facility] Urobilinogen (U) [Mass/Vol] 2 mg/dL Abnormal Normal (0-1) [facility] Volume, Urine 12 mL [facility] WBC LM.HPF (Urine sed) [#/Area] 0-2 [facility] BASIC METABOLIC PANELon 04- Anion gap [Moles/Vol] 12 mmol/L Normal 3-13 [facility] Comment on above: Performed By: #### L AB20, LAB99, LAB15 ####Scheduler Conveyor: SHENA GUERIN ([phone])[facility] CENT[facility]yler [place] (SBHLAB)[address] Calcium [Mass/Vol] 9.5 mg/dL Normal 8.4-10.2 [facility] Comment on above: Performed By: #### L AB20, LAB99, LAB15 ####Scheduler Conveyor: SHENA GUERIN ([phone])[facility] [place] (SBHLAB)[address] Chloride [Moles/Vol] 102 mmol/L Normal 98-107 [facility] Comment on above: Performed By: #### L AB20, LAB99, LAB15 ####Scheduler Conveyor: SHENA GUERIN ([id number])[facility]ENT[facility] [place]LA[place] (SBHLAB)[address] CO2 [Moles/Vol] 24 mmol/L Normal 22-29 [facility] [facility] Comment on above: Performed By: #### L AB20, LAB99, LAB15 ####Scheduler Conveyor: SHENA GUERIN ([id number])[facility] CENTERKyler OLLIECAPRICEN (SBHLAB)[address] Creatinine [Mass/Vol] 0.69 mg/dL Low 0.72-1.25 [facility] Comment on above: Performed By: #### L AB20, LAB99, LAB15 ####Scheduler Conveyor: SHENA GUERIN ([phone])[facility] OLLIECAPRICEN (SBHLAB)[address] GLOMERULAR FILTRATION RATE ML/MIN/1.73 SQ M.PREDICTED >90.0 Normal >60.0 [facility] Comment on above: Result Comment: Calc ulation based on the Chronic Kidney Disease Epidemiology Collaboration (CKD-EPI) equation refit without adjustment for race Performed By: #### L AB20, LAB99, LAB15 ####Scheduler Conveyor: SHENA GUERIN ([phone])[facility] CENTERKyler [place] (SBHLAB)[address] Glucose [Mass/Vol] 148 mg/dL High 74-100 [facility] Comment on above: Performed By: #### L AB20, LAB99, LAB15 ####Scheduler Conveyor: SHENA GUERIN ([phone])[facility] (SBHLAB)[address] Potassium [Moles/Vol] 3.9 mmol/L Normal 3.5-5.1 [facility] Comment on above: Result Comment: [facility] potassium values may be up to 0.5 mmol/L lower than serum values. Performed By: #### L AB20, LAB99, LAB15 ####Scheduler Conveyor: SHENA GUERIN ([id number])[facility] CENTERK[facility] [place] (SBHLAB)[address] Sodium [Moles/Vol] 138 mmol/L Normal 136-145 [facility] Comment on above: Performed By: #### L AB20, LAB99, LAB15 ####Scheduler Conveyor: SHENA GUERIN ([phone])[facility] (SBHLAB)[address] Urea nitrogen [Mass/Vol] 4 mg/dL Low 8-21 [facility] Comment on above: Performed By: #### L AB20, LAB99, LAB15 ####Scheduler Conveyor: SHENA GUERIN ([phone])[facility] (SBHLAB)[address] Basic metabolic 1998 panelon 05-22-2024 Anion gap [Moles/Vol] 12 mmol/L 3 - 13 mmol/L [facility] Calcium [Mass/Vol] 9.5 mg/dL 8.4 - 10. 2 mg/dL [facility] Chloride [Moles/Vol] 102 mmol/L 98 - 10 7 mmol/L [facility] CO2 [Moles/Vol] 24 mmol/L 22 - 29 mmol/L [facility] Creatinine [Mass/Vol] 0.69 mg/dL Low 0.72 - 1.25 mg/dL [facility] GFR/1.73 sq M.predicted (S/P/Bld) [Vol rate/Area] - PINF [facility] Comment on above: Calculation based on the Chronic Kidney Disease Epidemiology Collaboration (CKD-EPI) equation refit without adjustment for race Glucose [Mass/Vol] 148 mg/dL High 74 - 100 mg/dL [facility] Potassium [Moles/Vol] 3.9 mmol/L 3.5 - 5.1 mmol/L [facility] Comment on above: Plasma potassium víctor ues may be up to 0.5 mmol/L lower than serum values. Sodium [Moles/Vol] 138 mmol/L 136 - 145 mmol/L [facility] Urea nitrogen [Mass/Vol] 4 mg/dL Low 8 - 21 mg/dL [facility] CBC W Auto Differential pane l (Bld)on 05-22-2024 Basophils (Bld) [#/Vol] 0 10*3/uL 0.0 - 0.2 10*3/uL [facility] Basophils/100 WBC (Bld) 0.3 % 0.0 - 2.0 % [facility] Eosinophils (Bld) [#/Vol] 0.1 10*3/uL 0.0 - 0.5 10*3/uL [facility] Eosinophils/100 WBC (Bld) 0.8 % 0.0 - 6.0 % [facility] Erythrocyte distribution width (RBC) [Ratio] 14.6 % 11.5 - 15.0 % [facility] Hematocrit (Bld) [Volume fraction] 42.6 % 40.0 - 52.0 % [facility] Hemoglobin (Bld) [Mass/Vol] 14.3 g/dL 13.0 - 18.0 g/dL [facility] Immature granulocytes (Bld) [#/Vol] 0 10*3/uL NINF - 0.1 10*3/uL [facility] Immature granulocytes/100 WBC (Bld) 0.2 % 0.0 - 2.0 % [facility] Interpretation and review of laboratory results Normal [facility] Lymphocytes (Bld) [#/Vol] 1 10*3/uL 1.0 - 4.3 10*3/uL [facility] Lymphocytes/100 WBC (Bld) 16 % 15.0 - 45.0 % [facility] MCH (RBC) [Entitic mass] 30.4 pg 26.0 - 34.0 pg [facility] MCHC (RBC) [Mass/Vol] 33.6 % 30.5 - 36.0 % [facility] MCV (RBC) [Entitic vol] 90.4 fL 77.0 - 99.0 fL [facility] Monocytes (Bld) [#/Vol] 0.4 10*3/uL 0.0 - 0.9 10*3/uL [facility] Monocytes/100 WBC (Bld) 6 % 5.0 - 13.0 % [facility] Neutrophils (Bld) [#/Vol] 4.8 10*3/uL 1.8 - 7.5 10*3/uL [facility] Neutrophils/100 WBC (Bld) 76.7 % 38.0 - 82.0 % [facility] Nucleated RBC/100 WBC (Bld) [Ratio] 0 % [facility] Platelet mean volume (Bld) [Entitic vol] 10.5 fL 9.0 - 12.7 fL [facility] Platelets (Bld) [#/Vol] 144 10*3/uL 140 - 440 10*3/uL [facility] RBC (Bld) [#/Vol] 4.71 10*6/uL 4.40 - 5.9 0 10*6/uL [facility] WBC (Bld) [#/Vol] 6.3 10*3/uL 3.6 - 10.7 10*3/uL [facility] CBC WITH AUTO DIFFERENTIALon 05-22-2024 Basophils (Bld) [#/Vol] 0.0 10*3/uL Normal 0.0-0.2 [facility] Comment on above: Performed By: #### L [id number] ####Scheduler Conveyor: SHENA GUERIN ([id number])[facility] (SBAB)[address] [place] [address] Basophils/100 WBC (Bld) 0.3 % Normal 0.0-2.0 [facility] Comment on above: Performed By: #### L [id number] ####Scheduler Conveyor: SHENAPILAR DEL ROSARIOBeckieBETTY ([phone])[facility]ENTERA [place] (SBHLAB)[address] Eosinophils (Bld) [#/Vol] 0.1 10*3/uL Normal 0.0-0.5 [facility] Comment on above: Performed By: #### L [id number] ####Scheduler Conveyor: SHENA APOORVA ([id number])[facility]ENTERA [facility]BUNIV[facility]ITALSN (SBHLAB)[address] Eosinophils/100 WBC (Bld) 0.8 % Normal 0.0-6.0 [facility] Comment on above: Performed By: #### L [id number] ####Scheduler Conveyor: SHENAPILAR GUERIN ([id number])[facility]ENTERA [facility]BUNIV[facility] [place] [address] Erythrocyte distribution width (RBC) [Ratio] 14.6 % Normal 11.5-15.0 [facility] Comment on above: Performed By: #### L [id number] ####Scheduler Conveyor: SHENA APOORVA ([phone])[facility]A [place] ([facility] [place] [address] Hematocrit (Bld) [Volume fraction] 42.6 % Normal 40.0-52.0 [facility] Comment on above: Performed By: #### L [id number] ####Scheduler Conveyor: SHENA CHAMPAGNEBETTY ([phone])[facility] BARBUNIVERSITY [facility]OSPITALSN (SBAB)[address] Hemoglobin (Bld) [Mass/Vol] 14.3 g/dL Normal 13.0-18.0 [facility] Comment on above: Performed By: #### L [id number] ####Scheduler Conveyor: SHENA CHAMPAGNEBETTY ([phone])[facility]ALSN (SBAB)[address] IMMATURE GRANS % 0.2 % Normal 0.0-2.0 [facility] Comment on above: Performed By: #### L [id number] ####Scheduler Conveyor: SHENA CHAMPAGNEBETTY ([phone])[facility]ENTERA [facility]UN[facility]ALSN (SBHLAB)[address] IMMATURE GRANS ABSOLUTE 0.0 10*3/uL Normal <0.1 [facility] Comment on above: Performed By: #### L [id number] ####Scheduler Conveyor: SHENA GUERIN ([phone])[facility]ENTERA [facility]UN[facility]ALSN (SBHLAB)[address] Lymphocytes (Bld) [#/Vol] 1.0 10*3/uL Normal 1.0-4.3 [facility] Comment on above: Performed By: #### L [id number] ####Scheduler Conveyor: SHENA CHAMPAGNEBETTY ([phone])[facility] CENTERKyler ENGELUNIVERSITY OF NEW MEXICO HOSPITALSN (SBHLAB)[address] [place] [address] Lymphocytes/100 WBC (Bld) 16.0 % Normal 15.0-45.0 [facility] Comment on above: Performed By: #### L [id number] ####Scheduler Conveyor: SHENA CHAMPAGNEBETTY ([phone])[facility] CENTERKyler BARBUNIVERSITY [facility] HOSPITALSN (SBHLAB)[address] [place] [address] MCH (RBC) [Entitic mass] 30.4 pg Normal 26.0-34.0 [facility] Comment on above: Performed By: #### L [id number] ####Scheduler Conveyor: SHENA GUERIN ([phone])[facility] BARBUNIVERSITY [facility]ITALSN (SBHLAB)[address] [place] [address] MCHC 33.6 % Normal 30.5-36.0 [facility] Comment on above: Performed By: #### L [id number] ####Scheduler Conveyor: SHENA GUERIN ([phone])[facility] BARBUNIVERSITY OF [facility]OSPITALSN (SBHLAB)[address] [place] [address] MCV (RBC) [Entitic vol] 90.4 fL Normal 77.0-99.0 [facility] Comment on above: Performed By: #### L [id number] ####Scheduler Conveyor: SHENA GUERIN ([id number])[facility] [place] (SBHLAB)[address] Monocytes (Bld) [#/Vol] 0.4 10*3/uL Normal 0.0-0.9 [facility] Comment on above: Performed By: #### L [id number] ####Scheduler Conveyor: SHENA GUERIN ([phone])[facility] [place] (SBHLAB)[address] Monocytes/100 WBC (Bld) 6.0 % Normal 5.0-13.0 [facility] Comment on above: Performed By: #### L [id number] ####Scheduler Conveyor: SHENA GUERIN ([id number])[facility]A [place] (SBHLAB)[address] [place] [address] NEUTROPHILS ABSOLUTE 4.8 10*3/uL Normal 1.8-7.5 [facility] Comment on above: Performed By: #### L [id number] ####Scheduler Conveyor: SHENA GUERIN ([id number])[facility] [place] (SBHLAB)[address] Neutrophils/100 WBC (Bld) 76.7 % Normal 38.0-82.0 [facility] Comment on above: Performed By: #### L [id number] ####Scheduler Conveyor: SHENA GUERIN ([phone])[facility]A [place] (SBHLAB)[address] NRBC 0.0 /100 WBCs Normal 0.0-2.0 [facility] Comment on above: Performed By: #### L [id number] ####Scheduler Conveyor: SHENA GUERIN ([id number])[facility]A [place] (SBHLAB)[address] Platelet mean volume (Bld) [Entitic vol] 10.5 fL Normal 9.0-12.7 [facility] Comment on above: Performed By: #### L [id number] ####Scheduler Conveyor: SHENA GUERIN ([phone])[facility] CENTERKyler OSORIO (SBHLAB)[address] Platelets (Bld) [#/Vol] 144 10*3/uL Normal 140-440 [facility] Comment on above: Performed By: #### L [id number] ####Scheduler Conveyor: SHENA GUERIN ([id number])[facility] CENTERKyler ENGELUNIVERSITY OF NEW MEX[facility] HOSPITALSN (SBHLAB)[address] RBC (Bld) [#/Vol] 4.71 10*6/uL Normal 4.40-5.90 [facility] Comment on above: Performed By: #### L [id number] ####Scheduler Conveyor: SHENA GUERIN ([id number])[facility] CENTERKyler NEUMANN (SBHLAB)[address] WBC (Bld) [#/Vol] 6.3 10*3/uL Normal 3.6-10.7 [facility] Comment on above: Performed By: #### L [id number] ####Scheduler Conveyor: SHENA GUERIN ([id number])[facility] CENTERKyler [place] (SBHLAB)[address] ABDOMEN PELVIS W CONTRAST on 05-22-2024 CT ABDOMEN PELVIS W CONTRAST Normal [facility] CT Abdomen and Pelvis W cont [...] Electronically Signed Date/Time: 05/22/2024 4:39 PM T [facility] Patient Name: RORO CLAIRE : 1985 [...] LYMPH NODES: Unremarkable. No enlarged lymph nodes. [facility] Alyse Mathias MD - 05/22/2024 Patient Name: RORO VALDIVIA : 1985 [facility]#: [id number] Exam Date/Time: 05/22/2024 15:28 Procedure: CT ABDOMEN [...] Electronically Signed Date/Time: 05/22/2024 4:39 PM EDT [facility] Radiology Study observation (narrative) [facility] CT Abdomen and Pelvis W cont rast IVOrdered By: Alyse Mathias on 05-22-2024 [facility] Work Phone: ED Nursing Noteon 05-22-2024 ED Nursing Note Abdominal pain Pancreatitis was seen 3 days ago and was told if pain got worse to come back. Now also having chest pain and kidney pain Normal [facility] ED Provider Noteon ED Provider Note Normal [facility] HEPATIC FUNCTION PANELon Albumin [Mass/Vol] 4.0 g/dL Normal 3.5-5.0 [facility] Comment on above: Performed By: #### L AB20, LAB99, LAB15 ####Scheduler Conveyor: SHENA UNDERWOODCER ([phone])[facility] [place] (SBHLAB)[address] [place] [address] [place] ALP [Catalytic activity/Vol] 187 U/L High 40-150 [facility] Comment on above: Performed By: #### L AB20, LAB99, LAB15 ####Scheduler Conveyor: SHENA DEL ROSARIOHAMIDA ([phone])[facility] [place] (SBHLAB)[address] [place] [address] [place] ALT [Catalytic activity/Vol] 75 U/L High <40 [facility] Comment on above: Performed By: #### L AB20, LAB99, LAB15 ####Scheduler Conveyor: SHENA APOORVA ([phone])[facility] [place] (SBHLAB)[address] [place] [address] [place] AST [Catalytic activity/Vol] 119 U/L High <34 [facility] Comment on above: Performed By: #### L AB20, LAB99, LAB15 ####Scheduler Conveyor: SHENA DEL ROSARIOHAIMDA ([phone])[facility]ENTERA [facility]BUNIVERS[facility]ALSN (SBHLAB)[address] [place] [address] [place] Bilirubin [Mass/Vol] 2.6 mg/dL High <1.2 [facility] Comment on above: Performed By: #### L AB20, LAB99, LAB15 ####Scheduler Conveyor: SHENA DEL ROSARIOMARILOUBETTY ([phone])[facility]ENTERA [facility]UN[facility]ALS[facility] (SBHLAB)[address] [place] [address] [place] Bilirubin.indirect [Mass/Vol] 1.7 mg/dL High <0.5 [facility] Comment on above: Performed By: #### L AB20, LAB99, LAB15 ####Scheduler Conveyor: SHENA DEL ROSARIOHAMIDA ([phone])[facility] [place] (SBHLAB)[address] Protein [Mass/Vol] 7.5 g/dL Normal 6.4-8.3 [facility] Comment on above: Result Comment: Seru m protein values are higher than plasma values. Samples from recumbent persons are lower by up to 0.5 g/dL as compared to ambulatory persons. After 60 years values are lower by up to 0.2 g/dL. Performed By: #### L AB20, LAB99, LAB15 ####Scheduler Conveyor: SHENA GUERIN ([phone])[facility] Hepatic function 2000 panelo n 05-22-2024 Albumin [Mass/Vol] 4 g/dL 3.5 - 5.0 g/dL [facility] ALP [Catalytic activity/Vol] 187 U/L High 40 - 150 U/L [facility] ALT [Catalytic activity/Vol] 75 U/L High NINF - 40 U/L [facility] AST [Catalytic activity/Vol] 119 U/L High NINF - 34 U/L [facility] Bilirubin [Mass/Vol] 2.6 mg/dL High NINF - 1.2 mg/dL [facility] Bilirubin.conjugated [Mass/Vol] 1.7 mg/dL High NINF - 0.5 mg/dL [facility] Protein [Mass/Vol] 7.5 g/dL 6.4 - 8.3 g/dL [facility] Comment on above: Serum protein values are higher than plasma values. Samples from recumbent persons are lower by up to 0.5 g/dL as compared to ambulatory persons. After 60 years values are lower by up to 0.2 g/dL. LIPASEon 05-22-2024 Lipase [Catalytic activity/Vol] 50 U/L Normal <55 [facility] Comment on above: Performed By: #### L AB20, LAB99, LAB15 ####Scheduler Conveyor: SHENA GUERIN ([phone])[facility] (SBHLAB)[address] Laboratory - Chemistry and C hemistry - challengeon 05-22-2024 Lipase [Catalytic activity/Vol] 50 U/L NINF - 55 U/L [facility] Lipase [Catalytic activity/V ol]on 05-22-2024 Interpretation and review of laboratory results Normal [facility] No Panel Informationon 05-22 Interpretation and review of laboratory results Abnormal [facility] 36on 05-21-2024 36 This [facility] RN called patient for follow up, voicemail received, message left. Normal [facility] CBC W Auto Differential pane l (Bld)on 05-21-2024 Basophils (Bld) [#/Vol] 0.04 10*3/uL Normal <0.11 [facility] Comment on above: Order Comment: Speci men Type: BLOOD SPECIMEN Ordering Facility: [facility] Address: [address] [place] [address] Performed By: #### 5 7021-8 #### [facility] CLIA [id number] [address] [place], [place] [address] [place] Basophils/100 WBC (Bld) 0.5 % Normal [facility] Comment on above: Order Comment: Speci men Type: BLOOD SPECIMEN Ordering Facility: [facility] Address: [address] [place] [address] Performed By: #### 5 7021-8 #### [facility] CLIA [id number] [address] [place], [place] [address] [place] Differential cell count method Nom (Bld) Auto Normal [facility] Comment on above: Order Comment: Speci men Type: BLOOD SPECIMEN Ordering Facility: [facility] Address: [address] [place] [address] Performed By: #### 5 7021-8 #### [facility] CLIA [id number] [address] [place], [place] [address] [place] Eosinophils (Bld) [#/Vol] 0.11 10*3/uL Normal <0.46 [facility] Comment on above: Order Comment: Speci men Type: BLOOD SPECIMEN Ordering Facility: [facility] Address: [address] [place] [address] Performed By: #### 5 7021-8 #### [facility] CLIA [id number] [address] [place], [place] [address] [place] Eosinophils/100 WBC (Bld) 1.4 % Normal [facility] Comment on above: Order Comment: Speci men Type: BLOOD SPECIMEN Ordering Facility: [facility] Address: [address] [place] [address] Performed By: #### 5 7021-8 #### [facility] CLIA [id number] [address] [place] [address] [place] Erythrocyte distribution width (RBC) [Ratio] 14.8 % Normal 11.5-15.0 [facility] Comment on above: Order Comment: Speci men Type: BLOOD SPECIMEN Ordering Facility: [facility] Address: [address] [place] [address] Performed By: #### 5 7021-8 #### [facility] CLIA [id number] [address] [place] [address] [place] Hematocrit (Bld) [Volume fraction] 45.7 % Normal 39.0-51.0 [facility] Comment on above: Order Comment: Speci men Type: BLOOD SPECIMEN Ordering Facility: [facility] Address: [address] [place] [address] Performed By: #### 5 7021-8 #### [facility] CLIA [id number] [address] [place], [place] [address] [place] Hemoglobin (Bld) [Mass/Vol] 15.1 g/dL Normal 13.0-17.0 [facility] Comment on above: Order Comment: Speci men Type: BLOOD SPECIMEN Ordering Facility: [facility] Address: [address] [place] [address] Performed By: #### 5 7021-8 #### [facility] CLIA [id number] [address] [place], [place] [address] [place] Immature granulocytes (Bld) [#/Vol] 10*3/uL Normal <0.10 [facility] Comment on above: Order Comment: Speci men Type: BLOOD SPECIMEN Ordering Facility: [facility] Address: [address] [place] [address] Performed By: #### 5 7021-8 #### [facility] CLIA [id number] [address] [place] [address] [place] Immature granulocytes/100 WBC (Bld) 0.1 % Normal [facility] Comment on above: Order Comment: Speci men Type: BLOOD SPECIMEN Ordering Facility: [facility] Address: [address] [place] [address] Performed By: #### 5 7021-8 #### [facility] CLIA [id number] [address] [place] [address] [place] Lymphocytes (Bld) [#/Vol] 3.38 10*3/uL Normal 1.00-4.00 [facility] Comment on above: Order Comment: Speci men Type: BLOOD SPECIMEN Ordering Facility: [facility] Address: [address] [place] [address] Performed By: #### 5 7021-8 #### [facility] CLIA [id number] [address] [place] [address] [place] Lymphocytes/100 WBC (Bld) 41.9 % Normal [facility] Comment on above: Order Comment: Speci men Type: BLOOD SPECIMEN Ordering Facility: [facility] Address: [address] [place] [address] Performed By: #### 5 7021-8 #### [facility] CLIA [id number] [address] [place], [place] [address] [place] MCH (RBC) [Entitic mass] 29.8 pg Normal 26.0-34.0 [facility] Comment on above: Order Comment: Speci men Type: BLOOD SPECIMEN Ordering Facility: [facility] Address: [address] [place] [address] Performed By: #### 5 7021-8 #### [facility] CLIA [id number] [address] [place], [place] [address] [employer] [place] MCHC (RBC) [Mass/Vol] 33.0 g/dL Normal 30.5-36.0 [facility] Comment on above: Order Comment: Speci men Type: BLOOD SPECIMEN Ordering Facility: [facility] Address: [address] [place] [address] Performed By: #### 5 7021-8 #### [facility] CLIA [id number] [address] [place], [place] [address] [place] MCV (RBC) [Entitic vol] 90.1 fL Normal 80.0-100.0 [facility] Comment on above: Order Comment: Speci men Type: BLOOD SPECIMEN Ordering Facility: [facility] Address: [address] [place] [address] Performed By: #### 5 7021-8 #### [facility] CLIA [id number] [address] [place], [place] [address] [place] Monocytes (Bld) [#/Vol] 0.53 10*3/uL Normal <0.87 [facility] Comment on above: Order Comment: Speci men Type: BLOOD SPECIMEN Ordering Facility: [facility] Address: [address] [place] [address] Performed By: #### 5 7021-8 #### [facility] CLIA [id number] [address] [place], [place] [address] [place] Monocytes/100 WBC (Bld) 6.6 % Normal [facility] Comment on above: Order Comment: Speci men Type: BLOOD SPECIMEN Ordering Facility: [facility] Address: [address] [place] [address] Performed By: #### 5 7021-8 #### [facility] CLIA [id number] [address] [place], [place] [address] [place] Neutrophils (Bld) [#/Vol] 3.99 10*3/uL Normal 1.45-7.50 [facility] Comment on above: Order Comment: Speci men Type: BLOOD SPECIMEN Ordering Facility: [facility] Address: [address] [place] [address] Performed By: #### 5 7021-8 #### [facility] CLIA [id number] [address] [place], [place] [address] [place] Neutrophils/100 WBC (Bld) 49.5 % Normal [facility] Comment on above: Order Comment: Speci men Type: BLOOD SPECIMEN Ordering Facility: [facility] Address: [address] [place] [address] Performed By: #### 5 7021-8 #### [facility] CLIA [id number] [address] [place] [id number] [place] Nucleated RBC (Bld) [#/Vol] Normal [facility] Comment on above: Order Comment: Speci men Type: BLOOD SPECIMEN Ordering Facility: [facility] Address: [address] [place] [address] Performed By: #### 5 7021-8 #### [facility] CLIA [id number] [address] [place] [address] [place] Nucleated RBC/100 WBC (Bld) [Ratio] Normal [facility] Comment on above: Order Comment: Speci men Type: BLOOD SPECIMEN Ordering Facility: [facility] Address: [address] [place] [address] Performed By: #### 5 7021-8 #### [facility] CLIA [id number] [address] [place] [address] [place] Platelet mean volume (Bld) [Entitic vol] 9.6 fL Normal 9.0-12.7 [facility] Comment on above: Order Comment: Speci men Type: BLOOD SPECIMEN Ordering Facility: [facility] Address: [address] [place] [address] Performed By: #### 5 7021-8 #### [facility] CLIA [id number] [address] [place] [address] [place] Platelets (Bld) [#/Vol] 225 10*3/uL Normal 150-400 [facility] Comment on above: Order Comment: Speci men Type: BLOOD SPECIMEN Ordering Facility: [facility] Address: [address] [place] [address] Performed By: #### 5 7021-8 #### COURT [facility] CLIA [id number] [address] [place] [address] [place] RBC (Bld) [#/Vol] 5.07 10*6/uL Normal 4.20-6.00 [facility] Comment on above: Order Comment: Speci men Type: BLOOD SPECIMEN Ordering Facility: [facility] Address: [address] [place] [address] Performed By: #### 5 7021-8 #### MTMAYURI [facility] CLIA [id number] [address] [place] [address] [place] [facility] WBC (Bld) [#/Vol] 8.06 10*3/uL Normal 3.70-11.00 [facility] Comment on above: Order Comment: Speci men Type: BLOOD SPECIMEN Ordering Facility: [facility] Address: [address] [place] [address] Performed By: #### 5 7021-8 #### MT[facility] CLIA [id number] [address] [place] [address] [facility] Comprehensive metabolic 2000 panelon 05-21-2024 Albumin [Mass/Vol] 4.8 g/dL Normal 3.9-4.9 [facility] Comment on above: Order Comment: Speci men Type: BLOOD SPECIMEN Ordering Facility: [facility] Address: [address] [place] [address] Performed By: #### 2 4323-8, 3040-3 #### [facility] CLIA [id number] [address] [place], [place] [address] [place] ALP [Catalytic activity/Vol] 199 U/L High 38-113 [facility] Comment on above: Order Comment: Speci men Type: BLOOD SPECIMEN Ordering Facility: [facility] Address: [address] [place] [address] Performed By: #### 2 4323-8, 3040-3 #### COURT [facility] CLIA [id number] [address] [place], [place] [address] [place] ALT [Catalytic activity/Vol] 70 U/L High 10-54 [facility] Comment on above: Order Comment: Speci men Type: BLOOD SPECIMEN Ordering Facility: [facility] Address: [address] [place] [address] Performed By: #### 2 4323-8, 3039-3 #### [facility] CLIA [id number] [address] [place], [place] [address] [place] Anion gap [Moles/Vol] 15 mmol/L Normal 8-15 [facility] Comment on above: Order Comment: Speci men Type: BLOOD SPECIMEN Ordering Facility: [facility] Address: [address] [place] [address] Performed By: #### 2 4323-8, 3039-3 #### MTMAYURI [facility] CLIA [id number] [address] [place] [address] [place] AST [Catalytic activity/Vol] 122 U/L High 14-40 [facility] Comment on above: Order Comment: Speci men Type: BLOOD SPECIMEN Ordering Facility: [facility] Address: [address] [place] [address] Performed By: #### 2 4323-8, 3 #### COURT [facility] CLIA [id number] [address] [place] [address] [place] Bilirubin [Mass/Vol] 1.8 mg/dL High 0.2-1.3 [facility] Comment on above: Order Comment: Speci men Type: BLOOD SPECIMEN Ordering Facility: [facility] Address: [address] [place] [address] Result Comment: Use of this assay is not recommended for patients undergoing treatment with eltrombopag due to the potential for falsely elevated results. Performed By: #### 2 4323-8, 3039-3 #### [facility] CLIA [id number] [address] [place], [place] [address] [place] Calcium [Mass/Vol] 9.6 mg/dL Normal 8.5-10.2 [facility] Comment on above: Order Comment: Speci men Type: BLOOD SPECIMEN Ordering Facility: [facility] Address: [address] [place] [address] Performed By: #### 2 4323-8, 3040-3 #### [facility] CLIA [id number] [address] [place] [address] [place] Chloride [Moles/Vol] 99 mmol/L Normal 98-107 [facility] Comment on above: Order Comment: Speci men Type: BLOOD SPECIMEN Ordering Facility: [facility] Address: [address] [place] [address] Performed By: #### 2 4323-8, 3040-3 #### [facility] CLIA [id number] [address] [place] [address] [place] CO2 [Moles/Vol] 21 mmol/L Low 22-30 [facility] Comment on above: Order Comment: Speci men Type: BLOOD SPECIMEN Ordering Facility: [facility] Address: [address] [place] [address] Performed By: #### 2 4323-8, 0-3 #### [facility] CLIA [id number] [address] [place] [address] [place] Creatinine [Mass/Vol] 0.64 mg/dL Low 0.73-1.22 [facility] Comment on above: Order Comment: Speci men Type: BLOOD SPECIMEN Ordering Facility: [facility] Address: [address] [place] [address] Result Comment: Use of this assay is not recommended for patients undergoing treatment with phenindione, due to the potential for falsely depressed results. Performed By: #### 2 4323-8, 3040-3 #### [facility] CLIA [id number] [address] [place] [address] [place] Creatinine and Glomerular filtration rate.predicted panel (S/P/Bld) 125 mL/min/1.73m??? Normal >=60 [facility] Comment on above: Order Comment: Speci men Type: BLOOD SPECIMEN Ordering Facility: [facility] Address: [address] [place] [address] Result Comment: Oliva mated Glomerular Filtration Rate [...] By: #### 2 4323-8, 3039-3 #### [facility] CLIA [id number] [address] [place] [address] [place] Glucose [Mass/Vol] 127 mg/dL High 74-99 [facility] Comment on above: Order Comment: Lakshmi espinoza Type: BLOOD SPECIMEN Ordering Facility: [facility] Address: [address] [place] [address] Result Comment: The [place] Diabetes Association (ADA) provides guidance for cutoff [...] Standards of Medical Care in Diabetes 2016, [place] [employer] Association. Diabetes Care. 2016.39(Suppl 1). Performed By: #### 2 4323-8, 3039-3 #### [facility] CLIA [id number] [address] [place] [address] [place] Potassium [Moles/Vol] 3.4 mmol/L Low 3.7-5.1 [facility] Comment on above: Order Comment: Lakshmi espinoza Type: BLOOD SPECIMEN Ordering Facility[facility] Address: [address] [place], [place] [address] Performed By: #### 2 4323-8, 3040-3 #### [facility] CLIA [id number] [address] [place] [address] [place] Protein [Mass/Vol] 8.3 g/dL High 6.3-8.0 [facility] Comment on above: Order Comment: Speci men Type: BLOOD SPECIMEN Ordering [facility] Address: [address] [place] [address] Performed By: #### 2 4323-8, 3040-3 #### [facility] CLIA [id number] [address] [place] [address] [place] Sodium [Moles/Vol] 135 mmol/L Low 136-144 [facility] Comment on above: Order Comment: Speci men Type: BLOOD SPECIMEN Ordering [facility] Address: [address] [place] [address] Performed By: #### 2 4323-8, 0-3 #### [facility] CLIA [id number] [address] [place], [place] [address] [place] Urea nitrogen [Mass/Vol] 5 mg/dL Low 9-24 [facility] Comment on above: Order Comment: Speci men Type: BLOOD SPECIMEN Ordering [facility] Address: [address] [place] [address] Performed By: #### 2 4323-8, 3040-3 #### [facility] CLIA [id number] [address] [place], [place] [address] [employer] [place] ED PROV NOTEon 05-21-2024 ED PROV NOTE HNO ID: [id number] Author: BALJINDER DUNLAP DO Service: Emergency Medicine [...] include Mur (more content not included)... Normal [facility] Lipase SerPl-cCncon 05-22-19 25 Lipase [Catalytic activity/Vol] 182 U/L High 16-61 [facility] Comment on above: Order Comment: Speci men Type: BLOOD SPECIMEN Ordering Facility[facility] Address: [address] [place] [address] Performed By: #### 2 4323-8, 3040-3 #### [facility] CLIA [id number] [address] [place] [address] [facility] 36on 05-16-2024 36 This [facility] RN called patient for follow up, voicemail received, message left. Normal [facility] CBC W Auto Differential pane l (Bld)on 05-07-2024 Basophils (Bld) [#/Vol] 0 10*3/uL 0.0 - 0.2 10*3/uL [facility] Basophils/100 WBC (Bld) 0.6 % 0.0 - 2.0 % [facility] Eosinophils (Bld) [#/Vol] 0 10*3/uL 0.0 - 0.5 10*3/uL [facility] Eosinophils/100 WBC (Bld) 0.8 % 0.0 - 6.0 % [facility] Erythrocyte distribution width (RBC) [Ratio] 15.6 % High 11.5 - 15.0 % [facility] Hematocrit (Bld) [Volume fraction] 40.9 % 40.0 - 52.0 % [facility] Hemoglobin (Bld) [Mass/Vol] 13.8 g/dL 13.0 - 18.0 g/dL [facility] Immature granulocytes (Bld) [#/Vol] 0 10*3/uL NINF - 0.1 10*3/uL [facility] Immature granulocytes/100 WBC (Bld) 0.2 % 0.0 - 2.0 % [facility] Interpretation and review of laboratory results Abnormal [facility] Lymphocytes (Bld) [#/Vol] 1.7 10*3/uL 1.0 - 4.3 10*3/uL [facility] Lymphocytes/100 WBC (Bld) 33.7 % 15.0 - 45.0 % [facility] MCH (RBC) [Entitic mass] 30.3 pg 26.0 - 34.0 pg [facility] MCHC (RBC) [Mass/Vol] 33.7 % 30.5 - 36.0 % [facility] MCV (RBC) [Entitic vol] 89.9 fL 77.0 - 99.0 fL [facility] Monocytes (Bld) [#/Vol] 0.4 10*3/uL 0.0 - 0.9 10*3/uL [facility] Monocytes/100 WBC (Bld) 8.8 % 5.0 - 13.0 % [facility] Neutrophils (Bld) [#/Vol] 2.8 10*3/uL 1.8 - 7.5 10*3/uL [facility] Neutrophils/100 WBC (Bld) 55.9 % 38.0 - 82.0 % [facility] Nucleated RBC/100 WBC (Bld) [Ratio] 0 % [facility] Platelet mean volume (Bld) [Entitic vol] 10.2 fL 9.0 - 12.7 fL [facility] Comment on above: MPV is a calculated measurement using platelet volume ratio Platelets (Bld) [#/Vol] 170 10*3/uL 140 - 440 10*3/uL [facility] RBC (Bld) [#/Vol] 4.55 10*6/uL 4.40 - 5.9 0 10*6/uL [facility] WBC (Bld) [#/Vol] 5 10*3/uL 3.6 - 10.7 10*3/uL [facility] CBC WITH AUTO DIFFERENTIALon 05-07-2024 Basophils (Bld) [#/Vol] 0.0 10*3/uL Normal 0.0-0.2 [facility] Comment on above: Performed By: #### L [id number] ####Scheduler Conveyor: SHENA GUERIN ([id number])[facility] ([facility])[address] Basophils/100 WBC (Bld) 0.6 % Normal 0.0-2.0 [facility] Comment on above: Performed By: #### L [id number] ####Scheduler Conveyor: SHENA GUERIN ([id number])[facility] ([facility])[address] [place] [address] [facility] Eosinophils (Bld) [#/Vol] 0.0 10*3/uL Normal 0.0-0.5 [facility] Comment on above: Performed By: #### L [id number] ####Scheduler Conveyor: SHENA GUERIN ([id number])[facility] ([facility])[address] [place] [address] [place] Eosinophils/100 WBC (Bld) 0.8 % Normal 0.0-6.0 [facility] Comment on above: Performed By: #### L [id number] ####Scheduler Conveyor: SHENA GUERIN ([id number])[facility] ([facility])[address] Erythrocyte distribution width (RBC) [Ratio] 15.6 % High 11.5-15.0 [facility] Comment on above: Performed By: #### L [id number] ####Scheduler Conveyor: SHENA CHAMPAGNEBETTY ([id number])[facility] ([facility])[address] Hematocrit (Bld) [Volume fraction] 40.9 % Normal 40.0-52.0 [facility] Comment on above: Performed By: #### L [id number] ####Scheduler Conveyor: SHENA GUERIN ([id number])[facility] ([facility])[address] Hemoglobin (Bld) [Mass/Vol] 13.8 g/dL Normal 13.0-18.0 [facility] Comment on above: Performed By: #### L [id number] ####Scheduler Conveyor: SHENA GUERIN ([id number])[facility] ([facility])[address] [place] [address] [place] IMMATURE GRANS % 0.2 % Normal 0.0-2.0 [facility] Comment on above: Performed By: #### L [id number] ####Scheduler Conveyor: SHENA GUERIN ([id number])[facility] ([facility])[address] [place] [address] [place] IMMATURE GRANS ABSOLUTE 0.0 10*3/uL Normal <0.1 [facility] Comment on above: Performed By: #### L [id number] ####Scheduler Conveyor: SHENA GUERIN ([id number])[facility] ([facility])[address] Lymphocytes (Bld) [#/Vol] 1.7 10*3/uL Normal 1.0-4.3 [facility] Comment on above: Performed By: #### L [id number] ####Scheduler Conveyor: SHENA GUERIN ([id number])[facility])[address] Lymphocytes/100 WBC (Bld) 33.7 % Normal 15.0-45.0 [facility] Comment on above: Performed By: #### L [id number] ####Scheduler Conveyor: SHENA GUERIN ([id number])[facility] ([facility])[address] MCH (RBC) [Entitic mass] 30.3 pg Normal 26.0-34.0 [facility] Comment on above: Performed By: #### L [id number] ####Scheduler Conveyor: SHENA GUERIN ([id number])[facility] ([facility])[address] MCHC 33.7 % Normal 30.5-36.0 [facility] Comment on above: Performed By: #### L [id number] ####Scheduler Conveyor: SHENA GUERIN ([id number])[facility])[address] MCV (RBC) [Entitic vol] 89.9 fL Normal 77.0-99.0 [facility] Comment on above: Performed By: #### L [id number] ####Scheduler Conveyor: SHENA GUERIN ([id number])[facility] ([facility])[address] [place] [address] [place] Monocytes (Bld) [#/Vol] 0.4 10*3/uL Normal 0.0-0.9 [facility] Comment on above: Performed By: #### L [id number] ####Scheduler Conveyor: SHENA GUERIN ([id number])[facility])[address] [place] [address] [place] Monocytes/100 WBC (Bld) 8.8 % Normal 5.0-13.0 [facility] Comment on above: Performed By: #### L [id number] ####Scheduler Conveyor: SHENA GUERIN ([id number])[facility])[address] [place] [address] [place] NEUTROPHILS ABSOLUTE 2.8 10*3/uL Normal 1.8-7.5 [facility] Comment on above: Performed By: #### L [id number] ####Scheduler Conveyor: SHENA GUERIN ([id number])[facility])[address] [place] [address] [place] Neutrophils/100 WBC (Bld) 55.9 % Normal 38.0-82.0 [facility] Comment on above: Performed By: #### L [id number] ####Scheduler Conveyor: SHENA GUERIN ([id number])[facility])[address] [place] [address] [facility] NRBC 0.0 /100 WBCs Normal 0.0-2.0 [facility] Comment on above: Performed By: #### L [id number] ####Scheduler Conveyor: SHENA GUERIN ([id number])[facility] ([facility])[address] [place] [address] [facility] Platelet mean volume (Bld) [Entitic vol] 10.2 fL Normal 9.0-12.7 [facility] Comment on above: Result Comment: MPV is a calculated measurement using platelet volume ratio Performed By: #### L [id number] ####Scheduler Conveyor: SHENA GUERIN ([id number])[facility] evOLEDS ([facility])[address] Platelets (Bld) [#/Vol] 170 10*3/uL Normal 140-440 [facility] Comment on above: Performed By: #### L [id number] ####Scheduler Conveyor: SHENA GUERIN ([id number])[facility] ([facility])[address] RBC (Bld) [#/Vol] 4.55 10*6/uL Normal 4.40-5.90 [facility] Comment on above: Performed By: #### L [id number] ####Scheduler Conveyor: SHENA GUERIN ([id number])[facility] ([facility])[address] [place] [address] WBC (Bld) [#/Vol] 5.0 10*3/uL Normal 3.6-10.7 [facility] Comment on above: Performed By: #### L [id number] ####Scheduler Conveyor: SHENA GUERIN ([id number])[facility] ([facility])[address] [place] [address] COMPREHENSIVE METABOLIC PANE Rylan 05-07-2024 Albumin [Mass/Vol] 3.9 g/dL Normal 3.5-5.0 [facility] Comment on above: Performed By: #### L AB17, LAB99 ####Scheduler Conveyor: SHENA GUERIN ([phone])[facility] ([facility])[address] [place] [address] ALP [Catalytic activity/Vol] 191 U/L High 40-150 [facility] Comment on above: Performed By: #### L AB17, LAB99 ####Scheduler Conveyor: SHENA GUERIN ([id number])[facility] ([facility])[address] [place] [address] [place] ALT [Catalytic activity/Vol] 118 U/L High <40 [facility] Comment on above: Performed By: #### L AB17, LAB99 ####Scheduler Conveyor: SHENA APOORVA ([phone])[facility] ([facility])[address] [place] [address] [place] Anion gap [Moles/Vol] 15 mmol/L High 3-13 [facility] Comment on above: Performed By: #### L AB17, LAB99 ####Scheduler Conveyor: SHENA APOORVA ([id number])[facility])[address] [place] [address] [place] AST [Catalytic activity/Vol] 179 U/L High <34 [facility] Comment on above: Performed By: #### L AB17, LAB99 ####Scheduler Conveyor: SHENA APOORVA ([phone])[facility])[address] [place] [address] [place] Bilirubin [Mass/Vol] 1.3 mg/dL High <1.2 [facility] Comment on above: Performed By: #### L AB17, LAB99 ####Scheduler Conveyor: SHENA APOORVA ([phone])[facility] ([facility])[address] [place] [address] [place] Calcium [Mass/Vol] 9.2 mg/dL Normal 8.4-10.2 [facility] Comment on above: Performed By: #### L AB17, LAB99 ####Scheduler Conveyor: SHENA DEL ROSARIOHAMIDA ([phone])[facility])[address] [place] [address] [place] Chloride [Moles/Vol] 103 mmol/L Normal 98-107 [facility] Comment on above: Performed By: #### L AB17, LAB99 ####Scheduler Conveyor: SHENA GUERIN ([id number])[facility] ([facility])[address] [place] [address] [place] CO2 [Moles/Vol] 19 mmol/L Low 22-29 [facility] Comment on above: Performed By: #### L AB17, LAB99 ####Scheduler Conveyor: SHENA GUERIN ([id number])[facility] ([facility])[address] [place] [address] [place] Creatinine [Mass/Vol] 0.63 mg/dL Low 0.72-1.25 [facility] Comment on above: Performed By: #### L 17, LAB99 ####Scheduler Conveyor: SHENA GUERIN ([phone])[facility] ([facility])[address] [place] [address] [place] GLOMERULAR FILTRATION RATE ML/MIN/1.73 SQ M.PREDICTED >90.0 Normal >60.0 [facility] Comment on above: Result Comment: Calc ulation based on the Chronic Kidney Disease Epidemiology Collaboration (CKD-EPI) equation refit without adjustment for race Performed By: #### L 17, LAB99 ####Scheduler Conveyor: SHENA GUERIN ([id number])[facility])[address] [place] [address] [place] Glucose [Mass/Vol] 113 mg/dL High 74-100 [facility] Comment on above: Performed By: #### L AB17, LAB99 ####Scheduler Conveyor: SHENA GUERIN ([id number])[facility])[address] [place] [address] [place] Potassium [Moles/Vol] 3.6 mmol/L Normal 3.5-5.1 [facility] Comment on above: Result Comment: [facility] potassium values may be up to 0.5 mmol/L lower than serum values. Performed By: #### L AB17, LAB99 ####Scheduler Conveyor: SHENA [phone])[facility] ([facility])[address] Protein [Mass/Vol] 7.8 g/dL Normal 6.4-8.3 [facility] Comment on above: Performed By: #### L AB17, LAB99 ####Scheduler Conveyor: SHENA CHAMPAGNEBETTY ([id number])[facility] ([facility])[address] Sodium [Moles/Vol] 137 mmol/L Normal 136-145 [facility] Comment on above: Performed By: #### L AB17, LAB99 ####Scheduler Conveyor: SHENA CHAMPAGNEBETTY ([id number])[facility])[address] Urea nitrogen [Mass/Vol] 5 mg/dL Low 8-21 [facility] Comment on above: Performed By: #### L AB17, LAB99 ####Scheduler Conveyor: SHENA CHAMPAGNEBETTY ([phone])[facility] ([facility])[address] [place] [address] CT ABDOMEN PELVIS WO IV CONT RASTon 05-07-2024 CT ABDOMEN PELVIS WO IV CONTRAST Normal [facility] CT ABDOMEN PELVIS WO IV CONTRAST Normal [facility] CT Abdomen and Pelvis WO con traston 05-07-2024 1. Findings compatible with pancreatitis, similar to comparison. Correlation with appropriate laboratory values and follow-up suggested. 2. Hepatosplenomegaly, and hepatic steatosis. Report Dictated on Electronically Signed By: Paul Plata MD Electronically Signed Date/Time: 05/07/2024 5:37 PM [facility] Patient Name: RORO CLAIRE : [...] aorta is nonaneurysmal. Axial skeleton grossly intact. [facility] Paul Plata MD - 05/07/2024 [...] Electronically Signed Date/Time: 05/07/2024 5:37 PM EDT [facility] Radiology Study observation (narrative) [facility] CT Abdomen and Pelvis WO con trastOrdered By: Paul Plata on 05-07-2024 [facility] [employer] Work Phone: Comprehensive metabolic 1998 panelon 05-07-2024 Albumin [Mass/Vol] 3.9 g/dL 3.5 - 5.0 g/dL [facility] ALP [Catalytic activity/Vol] 191 U/L High 40 - 150 U/L [facility] ALT [Catalytic activity/Vol] 118 U/L High NINF - 40 U/L [facility] Anion gap [Moles/Vol] 15 mmol/L High 3 - 13 mmol/L [facility] AST [Catalytic activity/Vol] 179 U/L High NINF - 34 U/L [facility] Bilirubin [Mass/Vol] 1.3 mg/dL High NINF - 1.2 mg/dL [facility] Calcium [Mass/Vol] 9.2 mg/dL 8.4 - 10. 2 mg/dL [facility] Chloride [Moles/Vol] 103 mmol/L 98 - 10 7 mmol/L [facility] CO2 [Moles/Vol] 19 mmol/L Low 22 - 29 mmol/L [facility] Creatinine [Mass/Vol] 0.63 mg/dL Low 0.72 - 1.25 mg/dL [facility] GFR/1.73 sq M.predicted (S/P/Bld) [Vol rate/Area] - PINF [facility] Comment on above: Calculation based on the Chronic Kidney Disease Epidemiology Collaboration (CKD-EPI) equation refit without adjustment for race Glucose [Mass/Vol] 113 mg/dL High 74 - 100 mg/dL [facility] Potassium [Moles/Vol] 3.6 mmol/L 3.5 - 5.1 mmol/L [facility] Comment on above: Plasma potassium víctor ues may be up to 0.5 mmol/L lower than serum values. Protein [Mass/Vol] 7.8 g/dL 6.4 - 8.3 g/dL [facility] Sodium [Moles/Vol] 137 mmol/L 136 - 145 mmol/L [facility] Urea nitrogen [Mass/Vol] 5 mg/dL Low 8 - 21 mg/dL [facility] ED Nursing Noteon 05-07-2024 ED Nursing Note Pt states he drank alcohol 3 days ago and then drank this morning. Normal [facility] ED Provider Noteon ED Provider Note Normal [facility] LIPASEon 05-07-2024 Lipase [Catalytic activity/Vol] 127 U/L High <55 [facility] Comment on above: Performed By: #### L AB17, LAB99 ####Scheduler Conveyor: SHENA GUERIN ([phone])[facility] [place] [address] Laboratory - Chemistry and C hemistry - challengeon 05-07-2024 Lipase [Catalytic activity/Vol] 127 U/L High NINF - 55 U/L [facility] No Panel Informationon 05-07 Interpretation and review of laboratory results Abnormal [facility] 36on 04-26-2024 36 This [facility] RN called patient for follow up, voicemail received, message left. [facility] 36 Sent rx! [facility] 36 Fax received from [facility] on 04/25/24 regarding Rx for risperiDONE (RisperDAL) 0.5 MG tablet Patient's insurance will not cover 4 tablets a day. Can you please reorder this at Risperidone 1 mg - twice a day? [facility] 36on 04-23-2024 36 This [facility] RN called patient for follow up phone call, voicemail received, message left. [facility] 36on 04-22-2024 36 Unable to contact patient X2 Normal [facility] 36on 04-21-2024 36 Normal [facility] [id number] 04-20-2024 [id number] [facility] CBC (HEMOGRAM)on 04-20-2024 Erythrocyte distribution width (RBC) [Ratio] 15.5 % High 11.5-15.0 [facility] Comment on above: Performed By: #### L [id number] ####Scheduler Conveyor: JUDITH MARKHAM ([phone])[facility])[address] [place] [address] Hematocrit (Bld) [Volume fraction] 38.8 % Low 40.0-52.0 [facility] Comment on above: Performed By: #### L [id number] ####Scheduler Conveyor: JUDITH MARKHAM ([id number])[address] Hemoglobin (Bld) [Mass/Vol] 12.7 g/dL Low 13.0-18.0 [facility] Comment on above: Performed By: #### L AB294 ####Scheduler Conveyor: JUDITH MARKHAM ([id number])[address] IPF 8 Normal [facility] Comment on above: Performed By: #### L [id number] ####Scheduler Conveyor: JUDITH MARKHAM ([id number])[facility])[address] [place] [address] MCH (RBC) [Entitic mass] 29.9 pg Normal 26.0-34.0 [facility] Comment on above: Performed By: #### L AB294 ####Scheduler Conveyor: JUDITH MARKHAM ([id number])[address] MCHC 32.7 % Normal 30.5-36.0 [facility] Comment on above: Performed By: #### L AB294 ####Scheduler Conveyor: JUDITH MARKHAM ([id number])[facility])[address] [place] [address] MCV (RBC) [Entitic vol] 91.3 fL Normal 77.0-99.0 [facility] Comment on above: Performed By: #### L AB294 ####Scheduler Conveyor: JUDITH [id number])[facility] ([facility])[address] [place] [address] Platelet mean volume (Bld) [Entitic vol] 10.9 fL Normal 9.0-12.7 [facility] Comment on above: Performed By: #### L [id number] ####Scheduler Conveyor: JUDITH MARKHAM ([id number])[facility] ([facility])[address] [place] [address] Platelets (Bld) [#/Vol] 129 10*3/uL Low 140-440 [facility] Comment on above: Performed By: #### L AB294 ####Scheduler Conveyor: JUDITH MARKHAM ([phone])[facility] ([facility])[address] [place] [address] RBC (Bld) [#/Vol] 4.25 10*6/uL Low 4.40-5.90 [facility] Comment on above: Performed By: #### L AB294 ####Scheduler Conveyor: JUDITH MARKHAM ([phone])[facility] ([facility])[address] [place] [address] WBC (Bld) [#/Vol] 4.8 10*3/uL Normal 3.6-10.7 [facility] Comment on above: Performed By: #### L [id number] ####Scheduler Conveyor: JUDITH MARKHAM ([id number])[facility] ([facility])[address] [place] [address] CBC panel Auto (Bld)on 04-20 Erythrocyte distribution width (RBC) [Ratio] 15.5 % High 11.5 - 15.0 % [facility] Hematocrit (Bld) [Volume fraction] 38.8 % Low 40.0 - 52.0 % [facility] Hemoglobin (Bld) [Mass/Vol] 12.7 g/dL Low 13.0 - 18.0 g/dL [facility] Interpretation and review of laboratory results Abnormal [facility] IPF 8 [facility] MCH (RBC) [Entitic mass] 29.9 pg 26.0 - 34.0 pg [facility] MCHC (RBC) [Mass/Vol] 32.7 % 30.5 - 36.0 % [facility] MCV (RBC) [Entitic vol] 91.3 fL 77.0 - 99.0 fL [facility] Platelet mean volume (Bld) [Entitic vol] 10.9 fL 9.0 - 12.7 fL [facility] Platelets (Bld) [#/Vol] 129 10*3/uL Low 140 - 440 10*3/uL [facility] RBC (Bld) [#/Vol] 4.25 10*6/uL Low 4.40 - 5.9 0 10*6/uL [facility] WBC (Bld) [#/Vol] 4.8 10*3/uL 3.6 - 10.7 10*3/uL [facility] COMPREHENSIVE METABOLIC PANE Rylan 04-20-2024 Albumin [Mass/Vol] 3.2 g/dL Low 3.5-5.0 [facility] Comment on above: Performed By: #### L AB17 ####Scheduler Conveyor: JUDITH MARKHAM ([id number])[facility])[address] [place] [address] ALP [Catalytic activity/Vol] 167 U/L High 40-150 [facility] Comment on above: Performed By: #### L AB17 ####Scheduler Conveyor: JUDITH MARKHAM ([id number])[facility])[address] [place] [address] ALT [Catalytic activity/Vol] 83 U/L High <40 [facility] Comment on above: Performed By: #### L AB17 ####Scheduler Conveyor: JUDITH MARKHAM ([phone])[facility])[address] [place] [address] Anion gap [Moles/Vol] 8 mmol/L Normal 3-13 [facility] Comment on above: Performed By: #### L AB17 ####Scheduler Conveyor: JUDITH MARKHAM ([id number])[facility])[address] [place] [address] AST [Catalytic activity/Vol] 162 U/L High <34 [facility] Comment on above: Performed By: #### L AB17 ####Scheduler Conveyor: JUDITH MARKHAM ([id number])[facility] ([facility])[address] [place] [address] Bilirubin [Mass/Vol] 1.5 mg/dL High <1.2 [facility] Comment on above: Performed By: #### L AB17 ####Scheduler Conveyor: JUDITH MARKHAM ([phone])[facility] ([facility])[address] [place] [address] Calcium [Mass/Vol] 9.0 mg/dL Normal 8.4-10.2 [facility] Comment on above: Performed By: #### L AB17 ####Scheduler Conveyor: JUDITH MARKHAM ([phone])[facility])[address] [place] [address] Chloride [Moles/Vol] 107 mmol/L Normal 98-107 [facility] Comment on above: Performed By: #### L AB17 ####Scheduler Conveyor: JUDITH MARKHAM ([id number])[facility] ([facility])[address] [place] [address] CO2 [Moles/Vol] 21 mmol/L Low 22-29 [facility] Comment on above: Performed By: #### L AB17 ####Scheduler Conveyor: JUDITH MARKHAM ([phone])[facility])[address] [place] [address] Creatinine [Mass/Vol] 0.61 mg/dL Low 0.72-1.25 [facility] Comment on above: Performed By: #### L AB17 ####Scheduler Conveyor: JUDITH MARKHAM ([phone])[facility])[address] [place] [address] GLOMERULAR FILTRATION RATE ML/MIN/1.73 SQ M.PREDICTED >90.0 Normal >60.0 [facility] Comment on above: Result Comment: Calc ulation based on the Chronic Kidney Disease Epidemiology Collaboration (CKD-EPI) equation refit without adjustment for race Performed By: #### L AB17 ####Scheduler Conveyor: JUDITH MARKHAM ([phone])[facility])[address] [place] [address] Glucose [Mass/Vol] 111 mg/dL High 74-100 [facility] Comment on above: Performed By: #### L AB17 ####Scheduler Conveyor: JUDITH MARKHAM ([id number])[facility] ([facility])[address] [place] [address] Potassium [Moles/Vol] 3.8 mmol/L Normal 3.5-5.1 [facility] Comment on above: Result Comment: [facility] potassium values may be up to 0.5 mmol/L lower than serum values. Performed By: #### L AB17 ####Scheduler Conveyor: JUDITH MARKHAM ([id number])[facility] ([facility])[address] [place] [address] Protein [Mass/Vol] 6.5 g/dL Normal 6.4-8.3 [facility] Comment on above: Performed By: #### L AB17 ####Scheduler Conveyor: JUDITH MARKHAM ([id number])[facility] ([facility])[address] [place] [address] Sodium [Moles/Vol] 136 mmol/L Normal 136-145 [facility] Comment on above: Performed By: #### L AB17 ####Scheduler Conveyor: JUDITH MARKHAM ([id number])[facility] ([facility])[address] [place] [address] Urea nitrogen [Mass/Vol] 3 mg/dL Low 8-21 [facility] Comment on above: Performed By: #### L AB17 ####Scheduler Conveyor: JUDITH MARKHAM ([id number])[facility] ([facility])[address] [place] [address] Comprehensive metabolic 1998 panelon 04-20-2024 Albumin [Mass/Vol] 3.2 g/dL Low 3.5 - 5.0 g/dL [facility] ALP [Catalytic activity/Vol] 167 U/L High 40 - 150 U/L [facility] ALT [Catalytic activity/Vol] 83 U/L High NINF - 40 U/L [facility] Anion gap [Moles/Vol] 8 mmol/L 3 - 13 mmol/L [facility] AST [Catalytic activity/Vol] 162 U/L High NINF - 34 U/L [facility] Bilirubin [Mass/Vol] 1.5 mg/dL High NINF - 1.2 mg/dL [facility] Calcium [Mass/Vol] 9 mg/dL 8.4 - 10. 2 mg/dL [facility] Chloride [Moles/Vol] 107 mmol/L 98 - 10 7 mmol/L [facility] CO2 [Moles/Vol] 21 mmol/L Low 22 - 29 mmol/L [facility] Creatinine [Mass/Vol] 0.61 mg/dL Low 0.72 - 1.25 mg/dL [facility] GFR/1.73 sq M.predicted (S/P/Bld) [Vol rate/Area] - PINF [facility] Comment on above: Calculation based on the Chronic Kidney Disease Epidemiology Collaboration (CKD-EPI) equation refit without adjustment for race Glucose [Mass/Vol] 111 mg/dL High 74 - 100 mg/dL [facility] Interpretation and review of laboratory results Abnormal [facility] Potassium [Moles/Vol] 3.8 mmol/L 3.5 - 5.1 mmol/L [facility] Comment on above: Plasma potassium víctor ues may be up to 0.5 mmol/L lower than serum values. Protein [Mass/Vol] 6.5 g/dL 6.4 - 8.3 g/dL [facility] Sodium [Moles/Vol] 136 mmol/L 136 - 145 mmol/L [facility] Urea nitrogen [Mass/Vol] 3 mg/dL Low 8 - 21 mg/dL [facility] Nursing Noteon 04-20-2024 Nursing Note Discharge instructio meghna reviewed with patient. Patient did not have any further concerns at this time. Normal [facility] Progress Noteon 04-20-2024 Progress Note Normal [facility] CBC (HEMOGRAM)on 04-19-2024 Erythrocyte distribution width (RBC) [Ratio] 15.6 % High 11.5-15.0 [facility] Comment on above: Performed By: #### L [id number] ####Scheduler Conveyor: JUDITH MARKHAM ([id number])[facility] ([address] Hematocrit (Bld) [Volume fraction] 36.3 % Low 40.0-52.0 [facility] Comment on above: Performed By: #### L [id number] ####Scheduler Conveyor: JUDITH MARKHAM ([phone])[facility])[address] [place] [address] Hemoglobin (Bld) [Mass/Vol] 11.7 g/dL Low 13.0-18.0 [facility] Comment on above: Performed By: #### L [id number] ####Scheduler Conveyor: JUDITH MARKHAM ([id number])[facility] ([facility])[address] [place] [address] IPF 6 Normal [facility] Comment on above: Performed By: #### L [id number] ####Scheduler Conveyor: JUDITH MARKHAM ([id number])[facility] ([facility])[address] [place] [address] MCH (RBC) [Entitic mass] 29.5 pg Normal 26.0-34.0 [facility] Comment on above: Performed By: #### L [id number] ####Scheduler Conveyor: JUDITH MARKHAM ([phone])[facility])[address] [place] [address] MCHC 32.2 % Normal 30.5-36.0 [facility] Comment on above: Performed By: #### L [id number] ####Scheduler Conveyor: JUDITH MARKHAM ([phone])[facility])[address] [place] [address] MCV (RBC) [Entitic vol] 91.4 fL Normal 77.0-99.0 [facility] Comment on above: Performed By: #### L [id number] ####Scheduler Conveyor: JUDITH MARKHAM ([id number])[facility])[address] [place] [address] Platelet mean volume (Bld) [Entitic vol] 10.9 fL Normal 9.0-12.7 [facility] Comment on above: Performed By: #### L [id number] ####Scheduler Conveyor: JUDITH MARKHAM ([id number])[facility] ([facility])[address] [place] [address] Platelets (Bld) [#/Vol] 129 10*3/uL Low 140-440 [facility] Comment on above: Performed By: #### L [id number] ####Scheduler Conveyor: JUDITH MARKHAM ([id number])[facility])[address] [place] [address] RBC (Bld) [#/Vol] 3.97 10*6/uL Low 4.40-5.90 [facility] Comment on above: Performed By: #### L [id number] ####Scheduler Conveyor: JUDITH MARKHAM ([phone])[facility])[address] [place] [address] WBC (Bld) [#/Vol] 3.9 10*3/uL Normal 3.6-10.7 [facility] Comment on above: Performed By: #### L [id number] ####Scheduler Conveyor: JUDITH MARKHAM ([id number])[facility] ([facility])[address] [place] [address] CBC panel Auto (Bld)on 04-19 Erythrocyte distribution width (RBC) [Ratio] 15.6 % High 11.5 - 15.0 % [facility] Hematocrit (Bld) [Volume fraction] 36.3 % Low 40.0 - 52.0 % [facility] Hemoglobin (Bld) [Mass/Vol] 11.7 g/dL Low 13.0 - 18.0 g/dL [facility] Interpretation and review of laboratory results Abnormal [facility] IPF 6 [facility] MCH (RBC) [Entitic mass] 29.5 pg 26.0 - 34.0 pg [facility] MCHC (RBC) [Mass/Vol] 32.2 % 30.5 - 36.0 % [facility] MCV (RBC) [Entitic vol] 91.4 fL 77.0 - 99.0 fL [facility] Platelet mean volume (Bld) [Entitic vol] 10.9 fL 9.0 - 12.7 fL [facility] Platelets (Bld) [#/Vol] 129 10*3/uL Low 140 - 440 10*3/uL [facility] RBC (Bld) [#/Vol] 3.97 10*6/uL Low 4.40 - 5.9 0 10*6/uL [facility] WBC (Bld) [#/Vol] 3.9 10*3/uL 3.6 - 10.7 10*3/uL [facility] COMPREHENSIVE METABOLIC PANE Rylan 04-19-2024 Albumin [Mass/Vol] 3.0 g/dL Low 3.5-5.0 [facility] Comment on above: Performed By: #### L AB17, LAB99 ####Scheduler Conveyor: JUDITH MARKHAM ([id number])[facility] ([facility])[address] [place] [address] ALP [Catalytic activity/Vol] 148 U/L Normal 40-150 [facility] Comment on above: Performed By: #### Iggy JOHNSON17, LAB99 ####Scheduler Conveyor: JUDITH MARKHAM ([phone])[facility] ([facility])[address] [place] [address] ALT [Catalytic activity/Vol] 80 U/L High <40 [facility] Comment on above: Performed By: #### Iggy AB17, LAB99 ####Scheduler Conveyor: JUDITH MARKHAM ([phone])[facility] ([facility])[address] [place] [address] Anion gap [Moles/Vol] 8 mmol/L Normal 3-13 [facility] Comment on above: Performed By: #### L AB17, LAB99 ####Scheduler Conveyor: JUDITH MARKHAM ([id number])[facility] ([facility])[address] [place] [address] [place] AST [Catalytic activity/Vol] 142 U/L High <34 [facility] Comment on above: Performed By: #### L AB17, LAB99 ####Scheduler Conveyor: JUDITH MARKHAM ([phone])[facility] ([facility])[address] [place] [address] Bilirubin [Mass/Vol] 1.5 mg/dL High <1.2 [facility] Comment on above: Performed By: #### L AB17, LAB99 ####Scheduler Conveyor: JUDITH MARKHAM ([phone])[facility] ([facility])[address] [place] [address] Calcium [Mass/Vol] 8.5 mg/dL Normal 8.4-10.2 [facility] Comment on above: Performed By: #### L AB17, LAB99 ####Scheduler Conveyor: JUDITH MARKHAM ([id number])[facility])[address] [place] [address] Chloride [Moles/Vol] 108 mmol/L High 98-107 [facility] Comment on above: Performed By: #### Iggy AB17, LAB99 ####Scheduler Conveyor: JUDITH MARKHAM ([phone])[facility] ([facility])[address] [place] [address] CO2 [Moles/Vol] 21 mmol/L Low 22-29 [facility] Comment on above: Performed By: #### Iggy AB17, LAB99 ####Scheduler Conveyor: JUDITH MARKHAM ([id number])[facility] ([facility])[address] [place] [address] Creatinine [Mass/Vol] 0.58 mg/dL Low 0.72-1.25 [facility] Comment on above: Performed By: #### L AB17, LAB99 ####Scheduler Conveyor: JUDITH MARKHAM ([id number])[facility] ([facility])[address] [place] [address] GLOMERULAR FILTRATION RATE ML/MIN/1.73 SQ M.PREDICTED >90.0 Normal >60.0 [facility] Comment on above: Result Comment: Calc ulation based on the Chronic Kidney Disease Epidemiology Collaboration (CKD-EPI) equation refit without adjustment for race Performed By: #### L AB17, LAB99 ####Scheduler Conveyor: JUDITH MARKHAM ([id number])[facility] ([facility])[address] [place] [address] Glucose [Mass/Vol] 81 mg/dL Normal 74-100 [facility] Comment on above: Performed By: #### L AB17, LAB99 ####Scheduler Conveyor: JUDITH MARKHAM ([phone])[facility])[address] [place] [address] Potassium [Moles/Vol] 3.9 mmol/L Normal 3.5-5.1 [facility] Comment on above: Result Comment: [facility] potassium values may be up to 0.5 mmol/L lower than serum values. Performed By: #### L AB17, LAB99 ####Scheduler Conveyor: JUDITH MARKHAM ([id number])[facility] ([facility])[address] [place] [address] Protein [Mass/Vol] 6.0 g/dL Low 6.4-8.3 [facility] Comment on above: Performed By: #### L AB17, LAB99 ####Scheduler Conveyor: JUDITH MARKHAM ([phone])[facility])[address] [place] [address] Sodium [Moles/Vol] 137 mmol/L Normal 136-145 [facility] Comment on above: Performed By: #### L AB17, LAB99 ####Scheduler Conveyor: JUDITH MARKHAM ([id number])[facility])[address] [place] [address] Urea nitrogen [Mass/Vol] mg/dL Low 8-21 [facility] Comment on above: Performed By: #### L AB17, LAB99 ####Scheduler Conveyor: JUDITH MARKHAM ([id number])[facility])[address] [place] [address] Comprehensive metabolic 1998 panelon 04-19-2024 Albumin [Mass/Vol] 3 g/dL Low 3.5 - 5.0 g/dL [facility] ALP [Catalytic activity/Vol] 148 U/L 40 - 150 U/L [facility] ALT [Catalytic activity/Vol] 80 U/L High NINF - 40 U/L [facility] Anion gap [Moles/Vol] 8 mmol/L 3 - 13 mmol/L [facility] AST [Catalytic activity/Vol] 142 U/L High NINF - 34 U/L [facility] Bilirubin [Mass/Vol] 1.5 mg/dL High NINF - 1.2 mg/dL [facility] Calcium [Mass/Vol] 8.5 mg/dL 8.4 - 10. 2 mg/dL [facility] Chloride [Moles/Vol] 108 mmol/L High 98 - 10 7 mmol/L [facility] CO2 [Moles/Vol] 21 mmol/L Low 22 - 29 mmol/L [facility] Creatinine [Mass/Vol] 0.58 mg/dL Low 0.72 - 1.25 mg/dL [facility] GFR/1.73 sq M.predicted (S/P/Bld) [Vol rate/Area] - PINF [facility] Comment on above: Calculation based on the Chronic Kidney Disease Epidemiology Collaboration (CKD-EPI) equation refit without adjustment for race Glucose [Mass/Vol] 81 mg/dL 74 - 100 mg/dL [facility] Interpretation and review of laboratory results Abnormal [facility] Potassium [Moles/Vol] 3.9 mmol/L 3.5 - 5.1 mmol/L [facility] Comment on above: Plasma potassium víctor ues may be up to 0.5 mmol/L lower than serum values. Protein [Mass/Vol] 6 g/dL Low 6.4 - 8.3 g/dL [facility] Sodium [Moles/Vol] 137 mmol/L 136 - 145 mmol/L [facility] Urea nitrogen [Mass/Vol] mg/dL Low 8 - 21 mg/dL [facility] LIPASEon 04-19-2024 Lipase [Catalytic activity/Vol] 51 U/L Normal <55 [facility] Comment on above: Performed By: #### L AB17, LAB99 ####Scheduler Conveyor: JUDITH MARKHAM ([phone])[facility] ([id number] Laboratory - Chemistry and C hemistry - challengeon 04-19-2024 Lipase [Catalytic activity/Vol] 51 U/L NINF - 55 U/L [facility] Lipase [Catalytic activity/V ol]on 04-19-2024 Interpretation and review of laboratory results Normal [facility] Nursing Noteon 04-19-2024 Nursing Note Pt c/o pAIN IN ABD A ND RATES AT 09/18. Pt medicated with dilaudid 0.5mg IV per PRN order. Pt reports medication effective Normal [facility] Progress Noteon 04-19-2024 Progress Note Normal [facility] Progress Note Normal [facility] [id number] 04-18-2024 [id number] PT HERE FOR ALCOHOL DETOX, + COVID. CURRENTLY ON RA. PO PHENOBARB TAPER. ADDICTION MED FOLLOWING. ANTICIPATE DISCHARGE TO HOME WITH MOM AND NO NEEDS. Normal [facility] [id number] Normal [facility] CBC (HEMOGRAM)on 04-18-2024 Erythrocyte distribution width (RBC) [Ratio] 15.9 % High 11.5-15.0 [facility] Comment on above: Performed By: #### L [id number] ####Scheduler Conveyor: JUDITH MARKHAM ([id number])[address] Hematocrit (Bld) [Volume fraction] 37.8 % Low 40.0-52.0 [facility] Comment on above: Performed By: #### L AB294 ####Scheduler Conveyor: JUDITH MARKHAM ([id number])[address] Hemoglobin (Bld) [Mass/Vol] 11.8 g/dL Low 13.0-18.0 [facility] Comment on above: Performed By: #### L AB294 ####Scheduler Conveyor: JUDITH MARKHAM ([id number])[address] MCH (RBC) [Entitic mass] 28.9 pg Normal 26.0-34.0 [facility] Comment on above: Performed By: #### L AB294 ####Scheduler Conveyor: JUDITH MARKHAM ([id number])[address] MCHC 31.2 % Normal 30.5-36.0 [facility] Comment on above: Performed By: #### L AB294 ####Scheduler Conveyor: JUDITH MARKHAM ([id number])[facility] ([facility])[address] [place] [address] MCV (RBC) [Entitic vol] 92.6 fL Normal 77.0-99.0 [facility] Comment on above: Performed By: #### L AB294 ####Scheduler Conveyor: JUDITH MARKHAM ([phone])[facility])[address] [place] [address] Platelet mean volume (Bld) [Entitic vol] 10.1 fL Normal 9.0-12.7 [facility] Comment on above: Performed By: #### L AB294 ####Scheduler Conveyor: JUDITH MARKHAM ([id number])[facility])[address] [place] [address] Platelets (Bld) [#/Vol] 133 10*3/uL Low 140-440 [facility] Comment on above: Performed By: #### L AB294 ####Scheduler Conveyor: JUDITH MARKHAM ([id number])[facility] ([facility])[address] [place] [address] RBC (Bld) [#/Vol] 4.08 10*6/uL Low 4.40-5.90 [facility] Comment on above: Performed By: #### L AB294 ####Scheduler Conveyor: JUDITH MARKHAM ([id number])[facility])[address] [place] [address] WBC (Bld) [#/Vol] 3.4 10*3/uL Low 3.6-10.7 [facility] Comment on above: Performed By: #### L AB294 ####Scheduler Conveyor: JUDITH MARKHAM ([phone])[facility])[address] [place] [address] CBC panel Auto (Bld)Ordered By: Megha Lopez on 04-18-2024 Erythrocyte distribution width (RBC) [Ratio] 15.9 % High 11.5 - 15.0 % [facility] Hematocrit (Bld) [Volume fraction] 37.8 % Low 40.0 - 52.0 % [facility] Hemoglobin (Bld) [Mass/Vol] 11.8 g/dL Low 13.0 - 18.0 g/dL [facility] Interpretation and review of laboratory results Abnormal [facility] MCH (RBC) [Entitic mass] 28.9 pg 26.0 - 34.0 pg [facility] MCHC (RBC) [Mass/Vol] 31.2 % 30.5 - 36.0 % [facility] MCV (RBC) [Entitic vol] 92.6 fL 77.0 - 99.0 fL [facility] Platelet mean volume (Bld) [Entitic vol] 10.1 fL 9.0 - 12.7 fL [facility] Platelets (Bld) [#/Vol] 133 10*3/uL Low 140 - 440 10*3/uL [facility] RBC (Bld) [#/Vol] 4.08 10*6/uL Low 4.40 - 5.9 0 10*6/uL [facility] WBC (Bld) [#/Vol] 3.4 10*3/uL Low 3.6 - 10.7 10*3/uL [facility] COMPREHENSIVE METABOLIC PANE Rylan 04-18-2024 Albumin [Mass/Vol] 3.0 g/dL Low 3.5-5.0 [facility] Comment on above: Performed By: #### L AB17, LAB99 ####Scheduler Conveyor: JUDITH MARKHAM ([id number])[address] ALP [Catalytic activity/Vol] 145 U/L Normal 40-150 [facility] Comment on above: Performed By: #### L AB17, LAB99 ####Scheduler Conveyor: JUDITH MARKHAM ([id number])[facility] ([facility])[address] [place] [address] ALT [Catalytic activity/Vol] 95 U/L High <40 [facility] Comment on above: Performed By: #### L AB17, LAB99 ####Scheduler Conveyor: JUDITH MARKHAM ([phone])[facility])[address] [place] [address] Anion gap [Moles/Vol] 8 mmol/L Normal 3-13 [facility] Comment on above: Performed By: #### L AB17, LAB99 ####Scheduler Conveyor: JUDITH MARKHAM ([phone])[facility])[address] [place] [address] AST [Catalytic activity/Vol] 163 U/L High <34 [facility] Comment on above: Performed By: #### L AB17, LAB99 ####Scheduler Conveyor: JUDITH MARKHAM ([id number])[facility] ([facility])[address] [place] [address] Bilirubin [Mass/Vol] 1.7 mg/dL High <1.2 [facility] Comment on above: Performed By: #### L AB17, LAB99 ####Scheduler Conveyor: JUDITH MARKHAM ([phone])[facility])[address] [place] [address] Calcium [Mass/Vol] 8.5 mg/dL Normal 8.4-10.2 [facility] Comment on above: Performed By: #### L AB17, LAB99 ####Scheduler Conveyor: JUDITH MARKHAM ([id number])[facility] ([facility])[address] [place] [address] Chloride [Moles/Vol] 108 mmol/L High 98-107 [facility] Comment on above: Performed By: #### L AB17, LAB99 ####Scheduler Conveyor: JUDITH MARKHAM ([id number])[facility])[address] [place] [address] CO2 [Moles/Vol] 22 mmol/L Normal 22-29 [facility] Comment on above: Performed By: #### L AB17, LAB99 ####Scheduler Conveyor: JUDITH MARKHAM ([phone])[facility])[address] [place] [address] Creatinine [Mass/Vol] 0.54 mg/dL Low 0.72-1.25 [facility] Comment on above: Performed By: #### L AB17, LAB99 ####Scheduler Conveyor: JUDITH MARKHAM ([phone])[facility])[address] [place] [address] GLOMERULAR FILTRATION RATE ML/MIN/1.73 SQ M.PREDICTED >90.0 Normal >60.0 [facility] Comment on above: Result Comment: Calc ulation based on the Chronic Kidney Disease Epidemiology Collaboration (CKD-EPI) equation refit without adjustment for race Performed By: #### L AB17, LAB99 ####Scheduler Conveyor: JUDITH MARKHAM ([phone])[facility])[address] [place] [address] Glucose [Mass/Vol] 101 mg/dL High 74-100 [facility] Comment on above: Performed By: #### L AB17, LAB99 ####Scheduler Conveyor: JUDITH MARKHAM ([id number])[facility])[address] [place] [address] Potassium [Moles/Vol] 3.8 mmol/L Normal 3.5-5.1 [facility] Comment on above: Result Comment: [facility] potassium values may be up to 0.5 mmol/L lower than serum values. Performed By: #### L AB17, LAB99 ####Scheduler Conveyor: JUDITH MARKHAM ([phone])[facility])[address] [place] [address] [place] Protein [Mass/Vol] 5.9 g/dL Low 6.4-8.3 [facility] Comment on above: Performed By: #### L AB17, LAB99 ####Scheduler Conveyor: JUDITH MARKHAM ([phone])[facility])[address] [place] [address] [place] Sodium [Moles/Vol] 138 mmol/L Normal 136-145 [facility] Comment on above: Performed By: #### L AB17, LAB99 ####Scheduler Conveyor: JUDITH MARKHAM ([phone])[facility])[address] [place] [address] [place] Urea nitrogen [Mass/Vol] 3 mg/dL Low 8-21 [facility] Comment on above: Performed By: #### L AB17, LAB99 ####Scheduler Conveyor: JUDITH MARKHAM ([phone])[address] Comprehensive metabolic 1998 panelon 04-18-2024 Albumin [Mass/Vol] 3 g/dL Low 3.5 - 5.0 g/dL [facility] ALP [Catalytic activity/Vol] 145 U/L 40 - 150 U/L [facility] ALT [Catalytic activity/Vol] 95 U/L High NINF - 40 U/L [facility] Anion gap [Moles/Vol] 8 mmol/L 3 - 13 mmol/L [facility] AST [Catalytic activity/Vol] 163 U/L High NINF - 34 U/L [facility] Bilirubin [Mass/Vol] 1.7 mg/dL High NINF - 1.2 mg/dL [facility] Calcium [Mass/Vol] 8.5 mg/dL 8.4 - 10. 2 mg/dL [facility] Chloride [Moles/Vol] 108 mmol/L High 98 - 10 7 mmol/L [facility] CO2 [Moles/Vol] 22 mmol/L 22 - 29 mmol/L [facility] Creatinine [Mass/Vol] 0.54 mg/dL Low 0.72 - 1.25 mg/dL [facility] GFR/1.73 sq M.predicted (S/P/Bld) [Vol rate/Area] - PINF [facility] Comment on above: Calculation based on the Chronic Kidney Disease Epidemiology Collaboration (CKD-EPI) equation refit without adjustment for race Glucose [Mass/Vol] 101 mg/dL High 74 - 100 mg/dL [facility] Interpretation and review of laboratory results Abnormal [facility] Potassium [Moles/Vol] 3.8 mmol/L 3.5 - 5.1 mmol/L [facility] Comment on above: Plasma potassium víctor ues may be up to 0.5 mmol/L lower than serum values. Protein [Mass/Vol] 5.9 g/dL Low 6.4 - 8.3 g/dL [facility] Sodium [Moles/Vol] 138 mmol/L 136 - 145 mmol/L [facility] Urea nitrogen [Mass/Vol] 3 mg/dL Low 8 - 21 mg/dL [facility] LIPASEon 04-18-2024 Lipase [Catalytic activity/Vol] 66 U/L High <55 [facility] Comment on above: Performed By: #### L AB17, LAB99 ####Scheduler Conveyor: JUDITH MARKHAM ([id number])[facility])[address] [place] [address] Laboratory - Chemistry and C hemistry - challengeon 04-18-2024 Lipase [Catalytic activity/Vol] 66 U/L High NINF - 55 U/L [facility] Lipase [Catalytic activity/V ol]on 04-18-2024 Interpretation and review of laboratory results Abnormal [facility] Nursing Noteon 04-18-2024 Nursing Note Normal [facility] Progress Noteon 04-18-2024 Progress Note Nutrition rescreen completed. Chart reviewed. Patient's diet advanced, monitor tolerance to diet. Patient to be monitored and followed by the diet neurophysiological technician. Dietitian available upon request. RALPH Everett Normal [facility] Progress Note Normal [facility] Progress Note Normal [facility] CBC (HEMOGRAM)on 04-17-2024 Erythrocyte distribution width (RBC) [Ratio] 16.3 % High 11.5-15.0 [facility] Comment on above: Performed By: #### L AB294 ####Scheduler Conveyor: JUDITH MARKHAM ([id number])[address] Hematocrit (Bld) [Volume fraction] 37.4 % Low 40.0-52.0 [facility] Comment on above: Performed By: #### L AB294 ####Scheduler Conveyor: JUDITH MARKHAM ([id number])[address] Hemoglobin (Bld) [Mass/Vol] 11.9 g/dL Low 13.0-18.0 [facility] Comment on above: Performed By: #### L AB294 ####Scheduler Conveyor: JUDITH MARKHAM ([id number])[address] MCH (RBC) [Entitic mass] 29.3 pg Normal 26.0-34.0 [facility] Comment on above: Performed By: #### L AB294 ####Scheduler Conveyor: JUDITH MARKHAM ([phone])[facility])[address] [place] [address] MCHC 31.8 % Normal 30.5-36.0 [facility] Comment on above: Performed By: #### L AB294 ####Scheduler Conveyor: JUDITH MARKHAM ([id number])[facility] ([facility])[address] [place] [address] MCV (RBC) [Entitic vol] 92.1 fL Normal 77.0-99.0 [facility] Comment on above: Performed By: #### L AB294 ####Scheduler Conveyor: JUDITH MARKHAM ([id number])[facility])[address] [place] [address] Platelet mean volume (Bld) [Entitic vol] 10.0 fL Normal 9.0-12.7 [facility] Comment on above: Performed By: #### L AB294 ####Scheduler Conveyor: JUDITH MARKHAM ([id number])[facility])[address] [place] [address] Platelets (Bld) [#/Vol] 155 10*3/uL Normal 140-440 [facility] Comment on above: Performed By: #### L AB294 ####Scheduler Conveyor: JUDITH MARKHAM ([id number])[facility])[address] [place] [address] RBC (Bld) [#/Vol] 4.06 10*6/uL Low 4.40-5.90 [facility] Comment on above: Performed By: #### L AB294 ####Scheduler Conveyor: JUDITH MARKHAM ([phone])[facility])[address] [place] [address] WBC (Bld) [#/Vol] 4.2 10*3/uL Normal 3.6-10.7 [facility] Comment on above: Performed By: #### L AB294 ####Scheduler Conveyor: JUDITH MARKAHM ([phone])[facility] [place] [address] CBC panel Auto (Bld)Ordered By: William Montelongo on 04-17-2024 Erythrocyte distribution width (RBC) [Ratio] 16.3 % High 11.5 - 15.0 % [facility] Hematocrit (Bld) [Volume fraction] 37.4 % Low 40.0 - 52.0 % [facility] Hemoglobin (Bld) [Mass/Vol] 11.9 g/dL Low 13.0 - 18.0 g/dL [facility] Interpretation and review of laboratory results Abnormal [facility] MCH (RBC) [Entitic mass] 29.3 pg 26.0 - 34.0 pg [facility] MCHC (RBC) [Mass/Vol] 31.8 % 30.5 - 36.0 % [facility] MCV (RBC) [Entitic vol] 92.1 fL 77.0 - 99.0 fL [facility] Platelet mean volume (Bld) [Entitic vol] 10 fL 9.0 - 12.7 fL [facility] Platelets (Bld) [#/Vol] 155 10*3/uL 140 - 440 10*3/uL [facility] RBC (Bld) [#/Vol] 4.06 10*6/uL Low 4.40 - 5.9 0 10*6/uL [facility] WBC (Bld) [#/Vol] 4.2 10*3/uL 3.6 - 10.7 10*3/uL [facility] COMPREHENSIVE METABOLIC PANE Rylan 04-17-2024 Albumin [Mass/Vol] 3.5 g/dL Normal 3.5-5.0 [facility] Comment on above: Performed By: #### L AB103, LAB99, LAB17 ####Scheduler Conveyor: JUDITH MARKHAM ([phone])[facility] [place] [address] ALP [Catalytic activity/Vol] 172 U/L High 40-150 [facility] Comment on above: Performed By: #### L AB103, LAB99, LAB17 ####Scheduler Conveyor: JUDITH MARKHAM ([id number])[facility] [place] [address] [place] ALT [Catalytic activity/Vol] 117 U/L High <40 [facility] Comment on above: Performed By: #### L AB103, LAB99, LAB17 ####Scheduler Conveyor: JUDITH MARKHAM ([phone])[facility] ([facility])[address] [place] [address] Anion gap [Moles/Vol] 13 mmol/L Normal 3-13 [facility] Comment on above: Performed By: #### L AB103, LAB99, LAB17 ####Scheduler Conveyor: JUDITH MARKHAM ([phone])[facility] ([facility])[address] [place] [address] AST [Catalytic activity/Vol] 387 U/L High <34 [facility] Comment on above: Performed By: #### Iggy MCDONALD, LAB99, LAB17 ####Scheduler Conveyor: JUDITH MARKHAM ([phone])[facility] ([facility])[address] [place] [address] Bilirubin [Mass/Vol] 1.0 mg/dL Normal <1.2 [facility] Comment on above: Performed By: #### Iggy MCDONALD, LAB99, LAB17 ####Scheduler Conveyor: JUDITH MARKHAM ([phone])[facility] ([facility])[address] [place] [address] [place] Calcium [Mass/Vol] 7.8 mg/dL Low 8.4-10.2 [facility] Comment on above: Performed By: #### L AB103, LAB99, LAB17 ####Scheduler Conveyor: JUDITH MARKHAM ([phone])[facility] ([facility])[address] [place] [place] [address] [place] Chloride [Moles/Vol] 108 mmol/L High 98-107 [facility] Comment on above: Performed By: #### L AB103, LAB99, LAB17 ####Scheduler Conveyor: JUDITH MARKHAM ([phone])[facility] ([facility])[address] [place] [address] [place] CO2 [Moles/Vol] 21 mmol/L Low 22-29 [facility] Comment on above: Performed By: #### Iggy MCDONALD, LAB99, LAB17 ####Scheduler Conveyor: JUDITH MARKHAM ([phone])[facility])[address] [place] [address] Creatinine [Mass/Vol] 0.61 mg/dL Low 0.72-1.25 [facility] Comment on above: Performed By: #### Iggy MCDONALD, LAB99, LAB17 ####Scheduler Conveyor: JUDITH MARKHAM ([phone])[facility])[address] [place] [address] GLOMERULAR FILTRATION RATE ML/MIN/1.73 SQ M.PREDICTED >90.0 Normal >60.0 [facility] Comment on above: Result Comment: Calc ulation based on the Chronic Kidney Disease Epidemiology Collaboration (CKD-EPI) equation refit without adjustment for race Performed By: #### Iggy MCDONALD, LAB99, LAB17 ####Scheduler Conveyor: JUDITH MARKHAM ([phone])[facility] ([facility])[address] [place] [address] Glucose [Mass/Vol] 89 mg/dL Normal 74-100 [facility] Comment on above: Performed By: #### Iggy MCDONALD, LAB99, LAB17 ####Scheduler Conveyor: JUDITH MARKHAM ([phone])[facility])[address] [place] [address] Potassium [Moles/Vol] 3.7 mmol/L Normal 3.5-5.1 [facility] Comment on above: Result Comment: [facility] potassium values may be up to 0.5 mmol/L lower than serum values. Performed By: #### Iggy MCDONALD, LAB99, LAB17 ####Scheduler Conveyor: JUDITH MARKHAM ([phone])[facility])[address] [place] [address] Protein [Mass/Vol] 6.2 g/dL Low 6.4-8.3 [facility] Comment on above: Performed By: #### Iggy MCDONALD, LAB99, LAB17 ####Scheduler Conveyor: JUDITH MARKHAM ([phone])[facility] ([facility])[address] [place] [address] Sodium [Moles/Vol] 142 mmol/L Normal 136-145 [facility] Comment on above: Performed By: #### L AB103, LAB99, LAB17 ####Scheduler Conveyor: JUDITH MARKHAM ([phone])[facility] [place] [address] Urea nitrogen [Mass/Vol] 5 mg/dL Low 8-21 [facility] Comment on above: Performed By: #### L AB103, LAB99, LAB17 ####Scheduler Conveyor: JUDITH MARKHAM ([phone])[facility] [place] [address] Comprehensive metabolic 1998 panelon 04-17-2024 Albumin [Mass/Vol] 3.5 g/dL 3.5 - 5.0 g/dL [facility] ALP [Catalytic activity/Vol] 172 U/L High 40 - 150 U/L [facility] ALT [Catalytic activity/Vol] 117 U/L High NINF - 40 U/L [facility] Anion gap [Moles/Vol] 13 mmol/L 3 - 13 mmol/L [facility] AST [Catalytic activity/Vol] 387 U/L High [facility] - 34 U/L [facility] Bilirubin [Mass/Vol] 1 mg/dL [facility] - 1.2 mg/dL [facility] Calcium [Mass/Vol] 7.8 mg/dL Low 8.4 - 10. 2 mg/dL [facility] Chloride [Moles/Vol] 108 mmol/L High 98 - 10 7 mmol/L [facility] CO2 [Moles/Vol] 21 mmol/L Low 22 - 29 mmol/L [facility] Creatinine [Mass/Vol] 0.61 mg/dL Low 0.72 - 1.25 mg/dL [facility] GFR/1.73 sq M.predicted (S/P/Bld) [Vol rate/Area] - PINF [facility] Comment on above: Calculation based on the Chronic Kidney Disease Epidemiology Collaboration (CKD-EPI) equation refit without adjustment for race Glucose [Mass/Vol] 89 mg/dL 74 - 100 mg/dL [facility] Potassium [Moles/Vol] 3.7 mmol/L 3.5 - 5.1 mmol/L [facility] Comment on above: Plasma potassium víctor ues may be up to 0.5 mmol/L lower than serum values. Protein [Mass/Vol] 6.2 g/dL Low 6.4 - 8.3 g/dL [facility] Sodium [Moles/Vol] 142 mmol/L 136 - 145 mmol/L [facility] Urea nitrogen [Mass/Vol] 5 mg/dL Low 8 - 21 mg/dL [facility] Consulton 04-17-2024 Consult Normal [facility] LACTIC ACID WITH REFLEXon Lactate [Moles/Vol] 1.8 mmol/L Normal 0.5-2.2 [facility] Comment on above: Performed By: #### L [id number] ####Scheduler Conveyor: JUIDTH MARKHAM ([phone])[facility])[address] [place] [address] LIPASEon 04-17-2024 Lipase [Catalytic activity/Vol] 105 U/L High <55 [facility] Comment on above: Performed By: #### L AB103, LAB99, LAB17 ####Scheduler Conveyor: JUDITH MARKHAM ([phone])[facility])[address] [place] [address] Laboratory - Chemistry and C hemistry - challengeon 04-17-2024 Lipase [Catalytic activity/Vol] 105 U/L High NINF - 55 U/L [facility] Magnesium [Mass/Vol] 2.1 mg/dL 1.6 - 2 .6 mg/dL [facility] Lactate [Moles/Vol] 1.8 mmol/L 0.5 - 2. 2 mmol/L [facility] MAGNESIUMon 04-17-2024 Magnesium [Mass/Vol] 2.1 mg/dL Normal 1.6-2.6 [facility] Comment on above: Result Comment: PIEDAD Echeverria COMMENTS:Higher values can be expected in females during menses. Performed By: #### L AB103, LAB99, LAB17 ####Scheduler Conveyor: JUDITH MARKHAM ([id number])[facility] ([facility])[address] [place], [place] [id number] [facility] Magnesium [Mass/Vol]on 04-17 Interpretation and review of laboratory results Normal [facility] Higher values can be expected in females during menses. [facility] No Panel Informationon 04-17 Interpretation and review of laboratory results Abnormal [facility] Interpretation and review of laboratory results Normal [facility] Progress Noteon 04-17-2024 Progress Note Normal [facility] CBC W Auto Differential pane l (Bld)on 04-16-2024 Basophils (Bld) [#/Vol] 0.1 10*3/uL 0.0 - 0.2 10*3/uL [facility] Basophils/100 WBC (Bld) 0.7 % 0.0 - 2.0 % [facility] Eosinophils (Bld) [#/Vol] 0.1 10*3/uL 0.0 - 0.5 10*3/uL [facility] Eosinophils/100 WBC (Bld) 1.2 % 0.0 - 6.0 % [facility] Erythrocyte distribution width (RBC) [Ratio] 16.7 % High 11.5 - 15.0 % [facility] Hematocrit (Bld) [Volume fraction] 45.4 % 40.0 - 52.0 % [facility] Hemoglobin (Bld) [Mass/Vol] 14.9 g/dL 13.0 - 18.0 g/dL [facility] Immature granulocytes (Bld) [#/Vol] 0 10*3/uL NINF - 0.1 10*3/uL [facility] Immature granulocytes/100 WBC (Bld) 0.3 % 0.0 - 2.0 % [facility] Interpretation and review of laboratory results Abnormal [facility] Lymphocytes (Bld) [#/Vol] 3.5 10*3/uL 1.0 - 4.3 10*3/uL [facility] Lymphocytes/100 WBC (Bld) 47.3 % High 15.0 - 45.0 % [facility] MCH (RBC) [Entitic mass] 29.4 pg 26.0 - 34.0 pg [facility] MCHC (RBC) [Mass/Vol] 32.8 % 30.5 - 36.0 % [facility] MCV (RBC) [Entitic vol] 89.5 fL 77.0 - 99.0 fL [facility] Monocytes (Bld) [#/Vol] 0.3 10*3/uL 0.0 - 0.9 10*3/uL [facility] Monocytes/100 WBC (Bld) 4.1 % Low 5.0 - 13.0 % [facility] Neutrophils (Bld) [#/Vol] 3.5 10*3/uL 1.8 - 7.5 10*3/uL [facility] Neutrophils/100 WBC (Bld) 46.4 % 38.0 - 82.0 % [facility] Nucleated RBC/100 WBC (Bld) [Ratio] 0 % [facility] Platelet mean volume (Bld) [Entitic vol] 9.6 fL 9.0 - 12.7 fL [facility] Platelets (Bld) [#/Vol] 311 10*3/uL 140 - 440 10*3/uL [facility] RBC (Bld) [#/Vol] 5.07 10*6/uL 4.40 - 5.9 0 10*6/uL [facility] WBC (Bld) [#/Vol] 7.5 10*3/uL 3.6 - 10.7 10*3/uL [facility] CBC WITH AUTO DIFFERENTIALon 04-16-2024 Basophils (Bld) [#/Vol] 0.1 10*3/uL Normal 0.0-0.2 [facility] Comment on above: Performed By: #### L [id number] ####Scheduler Conveyor: JUDITH MARKHAM ([phone])[address] Basophils/100 WBC (Bld) 0.7 % Normal 0.0-2.0 [facility] Comment on above: Performed By: #### L [id number] ####Scheduler Conveyor: JUDITH [id number])[facility] ([facility])[address] [place] [address] Eosinophils (Bld) [#/Vol] 0.1 10*3/uL Normal 0.0-0.5 [facility] Comment on above: Performed By: #### L [id number] ####Scheduler Conveyor: JUDITH [id number])[facility] Eosinophils/100 WBC (Bld) 1.2 % Normal 0.0-6.0 [facility] Comment on above: Performed By: #### L [id number] ####Scheduler Conveyor: JUDITH MARKHAM ([id number])[facility])[address] [place] [address] Erythrocyte distribution width (RBC) [Ratio] 16.7 % High 11.5-15.0 [facility] Comment on above: Performed By: #### L [id number] ####Scheduler Conveyor: JUDITH MARKHAM ([id number])[facility])[address] [place] [address] Hematocrit (Bld) [Volume fraction] 45.4 % Normal 40.0-52.0 [facility] Comment on above: Performed By: #### L [id number] ####Scheduler Conveyor: JUDITH MARKHAM ([phone])[facility])[address] [place] [address] Hemoglobin (Bld) [Mass/Vol] 14.9 g/dL Normal 13.0-18.0 [facility] Comment on above: Performed By: #### L [id number] ####Scheduler Conveyor: JUDITH MARKHAM ([phone])[facility])[address] [place] [address] IMMATURE GRANS % 0.3 % Normal 0.0-2.0 [facility] Comment on above: Performed By: #### L [id number] ####Scheduler Conveyor: JUDITH MARKHAM ([phone])[address] IMMATURE GRANS ABSOLUTE 0.0 10*3/uL Normal <0.1 [facility] Comment on above: Performed By: #### L [id number] ####Scheduler Conveyor: JUDITH MARKHAM ([phone])[facility])[address] [place] [address] Lymphocytes (Bld) [#/Vol] 3.5 10*3/uL Normal 1.0-4.3 [facility] Comment on above: Performed By: #### L [id number] ####Scheduler Conveyor: JUDITH MARKHAM ([phone])[facility])[address] [place] [address] Lymphocytes/100 WBC (Bld) 47.3 % High 15.0-45.0 [facility] Comment on above: Performed By: #### L [id number] ####Scheduler Conveyor: JUDITH MARKHAM ([phone])[facility])[address] [place] [address] MCH (RBC) [Entitic mass] 29.4 pg Normal 26.0-34.0 [facility] Comment on above: Performed By: #### L [id number] ####Scheduler Conveyor: JUDITH MARKHAM ([phone])[facility])[address] [place] [address] MCHC 32.8 % Normal 30.5-36.0 [facility] Comment on above: Performed By: #### L [id number] ####Scheduler Conveyor: JUDITH MARKHAM ([phone])[facility])[address] [place] [address] MCV (RBC) [Entitic vol] 89.5 fL Normal 77.0-99.0 [facility] Comment on above: Performed By: #### L [id number] ####Scheduler Conveyor: JUDITH MARKHAM ([phone])[facility])[address] [place] [address] Monocytes (Bld) [#/Vol] 0.3 10*3/uL Normal 0.0-0.9 [facility] Comment on above: Performed By: #### L [id number] ####Scheduler Conveyor: JUDITH MARKHAM ([phone])[facility])[address] [place] [address] Monocytes/100 WBC (Bld) 4.1 % Low 5.0-13.0 [facility] Comment on above: Performed By: #### L [id number] ####Scheduler Conveyor: JUDITH MARKHAM ([phone])[facility] ([facility])[address] [place] [address] NEUTROPHILS ABSOLUTE 3.5 10*3/uL Normal 1.8-7.5 [facility] Comment on above: Performed By: #### L [id number] ####Scheduler Conveyor: JUDITH MARKHAM ([phone])[facility])[address] [place] [address] Neutrophils/100 WBC (Bld) 46.4 % Normal 38.0-82.0 [facility] Comment on above: Performed By: #### L [id number] ####Scheduler Conveyor: JUDITH MARKHAM ([phone])[facility])[address] [place] [address] NRBC 0.0 /100 WBCs Normal 0.0-2.0 [facility] Comment on above: Performed By: #### L [id number] ####Scheduler Conveyor: JUDITH MARKHAM ([phone])[facility] ([facility])[address] [place] [address] Platelet mean volume (Bld) [Entitic vol] 9.6 fL Normal 9.0-12.7 [facility] Comment on above: Performed By: #### L [id number] ####Scheduler Conveyor: JUDITH MARKHAM ([phone])[facility])[address] [place] [address] Platelets (Bld) [#/Vol] 311 10*3/uL Normal 140-440 [facility] Comment on above: Performed By: #### L [id number] ####Scheduler Conveyor: JUDITH MARKHAM ([phone])[facility] ([facility])[address] [place] [address] RBC (Bld) [#/Vol] 5.07 10*6/uL Normal 4.40-5.90 [facility] Comment on above: Performed By: #### L [id number] ####Scheduler Conveyor: JUDITH MARKHAM ([phone])[facility] ([facility])[address] [place] [address] WBC (Bld) [#/Vol] 7.5 10*3/uL Normal 3.6-10.7 [facility] Comment on above: Performed By: #### L [id number] ####Scheduler Conveyor: JUDITH MARKHAM ([phone])[facility] ([facility])[address] [place] [address] COMPREHENSIVE METABOLIC PANE Rylan 04-16-2024 Albumin [Mass/Vol] 4.4 g/dL Normal 3.5-5.0 [facility] Comment on above: Performed By: #### L AB17, LAB99, LAB46 ####Scheduler Conveyor: JUDITH MARKHAM ([phone])[facility] ([facility])[address] [place] [address] ALP [Catalytic activity/Vol] 234 U/L High 40-150 [facility] Comment on above: Performed By: #### L AB17, LAB99, LAB46 ####Scheduler Conveyor: JUDITH MARKHAM ([phone])[facility] ([facility])[address] [place] [address] ALT [Catalytic activity/Vol] 197 U/L High <40 [facility] Comment on above: Performed By: #### L AB17, LAB99, LAB46 ####Scheduler Conveyor: JUDITH MARKHAM ([phone])[facility] ([facility])[address] [place] [address] Anion gap [Moles/Vol] 16 mmol/L High 3-13 [facility] Comment on above: Performed By: #### L AB17, LAB99, LAB46 ####Scheduler Conveyor: JUDITH MARKHAM ([phone])[facility] ([facility])[address] [place] [address] [place] AST [Catalytic activity/Vol] 635 U/L High <34 [facility] Comment on above: Performed By: #### L AB17, LAB99, LAB46 ####Scheduler Conveyor: JUDITH MARKHAM ([phone])[facility] ([facility])[address] [place] [address] Bilirubin [Mass/Vol] 1.3 mg/dL High <1.2 [facility] Comment on above: Performed By: #### Iggy AB17, LAB99, LAB46 ####Scheduler Conveyor: JUDITH MARKHAM ([phone])[facility] ([facility])[address] [place] [address] Calcium [Mass/Vol] 8.8 mg/dL Normal 8.4-10.2 [facility] Comment on above: Performed By: #### Iggy AB17, LAB99, LAB46 ####Scheduler Conveyor: JUDITH MARKHAM ([phone])[facility] ([facility])[address] [place] [address] Chloride [Moles/Vol] 103 mmol/L Normal 98-107 [facility] Comment on above: Performed By: #### Iggy AB17, LAB99, LAB46 ####Scheduler Conveyor: JUDITH MARKHAM ([phone])[facility] ([facility])[address] [place] [address] CO2 [Moles/Vol] 22 mmol/L Normal 22-29 [facility] Comment on above: Performed By: #### Iggy BARNES, LAB99, LAB46 ####Scheduler Conveyor: JUDITH MARKHAM ([phone])[facility] ([facility])[address] [place] [address] Creatinine [Mass/Vol] 0.76 mg/dL Normal 0.72-1.25 [facility] Comment on above: Performed By: #### Iggy BARNES, LAB99, LAB46 ####Scheduler Conveyor: JUDITH MARKHAM ([phone])[facility] ([facility])[address] [place] [address] GLOMERULAR FILTRATION RATE ML/MIN/1.73 SQ M.PREDICTED >90.0 Normal >60.0 [facility] Comment on above: Result Comment: Calc ulation based on the Chronic Kidney Disease Epidemiology Collaboration (CKD-EPI) equation refit without adjustment for race Performed By: #### Iggy AB17, LAB99, LAB46 ####Scheduler Conveyor: JUDITH MARKHAM ([phone])[facility] [place] [address] Glucose [Mass/Vol] 151 mg/dL High 74-100 [facility] Comment on above: Performed By: #### L AB17, LAB99, LAB46 ####Scheduler Conveyor: JUDITH MARKHAM ([phone])[facility])[address] [place] [address] Potassium [Moles/Vol] 3.8 mmol/L Normal 3.5-5.1 [facility] Comment on above: Result Comment: [facility] potassium values may be up to 0.5 mmol/L lower than serum values. Performed By: #### L AB17, LAB99, LAB46 ####Scheduler Conveyor: JUDITH MARKHAM ([phone])[facility])[address] [place] [address] Protein [Mass/Vol] 8.1 g/dL Normal 6.4-8.3 [facility] Comment on above: Performed By: #### L AB17, LAB99, LAB46 ####Scheduler Conveyor: JUDITH MARKHAM ([phone])[facility] ([facility])[address] [place] [address] Sodium [Moles/Vol] 141 mmol/L Normal 136-145 [facility] Comment on above: Performed By: #### L AB17, LAB99, LAB46 ####Scheduler Conveyor: JUDITH MARKHAM ([phone])[facility])[address] [place] [address] Urea nitrogen [Mass/Vol] 6 mg/dL Low 8-21 [facility] Comment on above: Performed By: #### L AB17, LAB99, LAB46 ####Scheduler Conveyor: JUDITH MARKHAM ([phone])[facility])[address] [place] [address] CT Abdomen and Pelvis WO con traston 04-16-2024 1. Findings compatible with pancreatitis, mildly increased in the interval. Correlation with appropriate laboratory values and follow-up suggested. 2. Hepatomegaly and hepatic steatosis. Report Dictated on Electronically Signed By: Paul Plata MD Electronically Signed Date/Time: 04/16/2024 6:57 PM EST [facility] RADIOLOGY SYSTEM Patient Name: RORO CLAIRE : [...] aorta is nonaneurysmal. Axial skeleton grossly intact. [facility] Paul Plata MD - 04/16/2024 Patient [...] Electronically Signed Date/Time: 04/16/2024 6:57 PM EST [facility] Radiology Study observation (narrative) [facility] CT Abdomen and Pelvis WO con trastOrdered By: Paul Plata on 04-16-2024 [facility] Work Phone: Comprehensive metabolic 1998 panelon 04-16-2024 Albumin [Mass/Vol] 4.4 g/dL 3.5 - 5.0 g/dL [facility] ALP [Catalytic activity/Vol] 234 U/L High 40 - 150 U/L [facility] ALT [Catalytic activity/Vol] 197 U/L High NINF - 40 U/L [facility] Anion gap [Moles/Vol] 16 mmol/L High 3 - 13 mmol/L [facility] AST [Catalytic activity/Vol] 635 U/L High [facility] MARYVALEF - 34 U/L [facility] Bilirubin [Mass/Vol] 1.3 mg/dL High [facility] MARYVALEF - 1.2 mg/dL [facility] Calcium [Mass/Vol] 8.8 mg/dL 8.4 - 10. 2 mg/dL [facility] Chloride [Moles/Vol] 103 mmol/L 98 - 10 7 mmol/L [facility] CO2 [Moles/Vol] 22 mmol/L 22 - 29 mmol/L [facility] Creatinine [Mass/Vol] 0.76 mg/dL 0.72 - 1.25 mg/dL [facility] GFR/1.73 sq M.predicted (S/P/Bld) [Vol rate/Area] - PINF [facility] Comment on above: Calculation based on the Chronic Kidney Disease Epidemiology Collaboration (CKD-EPI) equation refit without adjustment for race Glucose [Mass/Vol] 151 mg/dL High 74 - 100 mg/dL [facility] Interpretation and review of laboratory results Abnormal [facility] Potassium [Moles/Vol] 3.8 mmol/L 3.5 - 5.1 mmol/L [facility] Comment on above: Plasma potassium víctor ues may be up to 0.5 mmol/L lower than serum values. Protein [Mass/Vol] 8.1 g/dL 6.4 - 8.3 g/dL [facility] Sodium [Moles/Vol] 141 mmol/L 136 - 145 mmol/L [facility] Urea nitrogen [Mass/Vol] 6 mg/dL Low 8 - 21 mg/dL [facility] DRUGS OF ABUSEon 04-16-2024 AMPHETAMINE SCREEN Positive Normal [facility] Comment on above: Performed By: #### L [id number] ####Scheduler Conveyor: JUDITH MARKHAM ([id number])[address] BARBITURATES SCREEN Negative Normal [facility] Comment on above: Performed By: #### L [id number] ####Scheduler Conveyor: JUDITH MARKHAM ([phone])[address] BENZODIAZEPINE SCREEN Negative Normal [facility] Comment on above: Performed By: #### L [id number] ####Scheduler Conveyor: JUDITH MARKHAM ([phone])[address] COCAINE METAB. SCREEN Negative Normal [facility] Comment on above: Performed By: #### L [id number] ####Scheduler Conveyor: JUDITH MARKHAM ([phone])[address] FENTANYL SCREEN, UR QUAL Positive Normal [facility] Comment on above: Result Comment: ORDE [...] under separate order. Performed By: #### L [id number] ####Scheduler Conveyor: JUDITH MARKHAM ([phone])[facility] ([facility])[address] [place] [address] METHADONE SCREEN Negative Normal [facility] Comment on above: Performed By: #### L [id number] ####Scheduler Conveyor: JUDITH MARKHAM ([phone])[facility] ([facility])[address] [place] [address] OPIATES SCREEN Negative Normal [facility] Comment on above: Performed By: #### L [id number] ####Scheduler Conveyor: JUDITH MARKHAM ([phone])[facility] ([facility])[address] [place] [address] OXYCODONE SCREEN Negative Normal [facility] Comment on above: Performed By: #### L [id number] ####Scheduler Conveyor: JUDITH MARKHAM ([phone])[facility] ([facility])[address] [place] [address] PHENCYCLIDINE SCREEN Negative Normal [facility] Comment on above: Performed By: #### L [id number] ####Scheduler Conveyor: JUDITH MARKHAM ([phone])[facility] ([facility])[address] [place] [address] ED Provider Noteon ED Provider Note Normal [facility] ETHANOLon 04-16-2024 ETHANOL IN SER/PLAS 331 mg/dL Critically high <10 [facility] Comment on above: Result Comment: ORDE R COMMENTS:VOICE PATHOLOGIST depression is seen >100 mg/dL.NOTE: This result is for medical treatment only. Analysis performed using non-forensic procedures. Performed By: #### L AB17, LAB99, LAB46 ####Scheduler Conveyor: JUDITH MARKHAM ([phone])[facility] ([facility])[address] [place] [address] Ethanol (Bld) [Mass/Vol]Orde red By: Christina Duncan on 04-16-2024 Ethanol [Mass/Vol] 331 mg/dL Critically high NINF - 10 mg/dL [facility] Interpretation and review of laboratory results Abnormal [facility] VOICE PATHOLOGIST depression is se en >100 mg/dL. NOTE: This result is for medical treatment only. Analysis performed using non-forensic procedures. [facility] LACTIC ACID WITH REFLEXon Lactate [Moles/Vol] 2.2 mmol/L Normal 0.5-2.2 [facility] Comment on above: Performed By: #### L [id number] ####Scheduler Conveyor: JUDITH MARKHAM ([phone])[facility])[address] [place] [address] Lactate [Moles/Vol] 4.0 mmol/L Critically high 0.5-2.2 [facility] Comment on above: Performed By: #### L [id number] ####Scheduler Conveyor: JUDITH MARKHAM ([phone])[facility] ([facility])[address] [place] [address] LIPASEon 04-16-2024 Lipase [Catalytic activity/Vol] 135 U/L High <55 [facility] Comment on above: Performed By: #### L AB17, LAB99, LAB46 ####Scheduler Conveyor: JUDITH MARKHAM ([phone])[facility])[address] [place] [address] Laboratory - Chemistry and C hemistry - challengeon 04-16-2024 Lactate [Moles/Vol] 2.2 mmol/L 0.5 - 2. 2 mmol/L [facility] Lactate [Moles/Vol] 4 mmol/L Critically high 0.5 - 2.2 mmol/L [facility] Lipase [Catalytic activity/Vol] 135 U/L High NINF - 55 U/L [facility] Laboratory - Drug toxicology on 04-16-2024 Amphetamines Screen method >1000 ng/mL Ql (U) Positive [facility] Barbiturates Screen method >200 ng/mL Ql (U) Negative [facility] Benzodiazepines Ql (U) Negative [facility] Methadone Screen Ql (U) Negative [facility] Opiates Screen Ql (U) Negative [facility] oxyCODONE Ql (U) Negative [facility] Phencyclidine Ql (U) Negative [facility] Laboratory - Microbiology an d Antimicrobial susceptibilityOrdered By: Pooja Huber on 04-16-2024 SARS-CoV-2 (COVID-19) Ag IA.rapid Ql (Resp) Positive Abnormal Negative [facility] Comment on above: This test detects zenaida th viable and non-viable virus. Positive results do not differentiate between SARS-CoV and SARS-CoV-2. If differentiation of specific SARS is needed, additional testing with a NAAT-based method is required. Method: Lateral flow immunoassay. Fact sheets for healthcare providers and patients can be found at the following sites: https://www.[employer].gov/media/764962/download https://www.[employer].gov/[employer]/341836/download Lipase [Catalytic activity/V ol]on 04-16-2024 Interpretation and review of laboratory results Abnormal [facility] No Panel Informationon 04-16 Interpretation and review of laboratory results Normal [facility] Interpretation and review of laboratory results Abnormal [facility] COCAINE METAB. SCREEN Negative [facility] FENTANYL SCREEN, UR QUAL Positive [facility] The expected value f or all [...] is needed, request confirmation under separate order. [facility] SARS-COV-2 ANTIGENon 025 SARS-COV-2 ANTIGEN Normal [facility] Comment on above: Performed By: #### L [id number] ####Scheduler Conveyor: JUDITH MARKHAM ([phone])[facility] ([place] [address] [place] SARS-CoV-2 (COVID-19) Ag IA. rapid Ql (Resp)Ordered By: Pooja Huber on 04-16-2024 Interpretation and review of laboratory results Abnormal [facility] CBC W Auto Differential pane l (Bld)on 04-06-2024 Basophils (Bld) [#/Vol] 0 10*3/uL 0.0 - 0.2 10*3/uL [facility] Basophils/100 WBC (Bld) 0.3 % 0.0 - 2.0 % [facility] Eosinophils (Bld) [#/Vol] 0 10*3/uL 0.0 - 0.5 10*3/uL [facility] Eosinophils/100 WBC (Bld) 0.9 % 0.0 - 6.0 % [facility] Erythrocyte distribution width (RBC) [Ratio] 15 % 11.5 - 15.0 % [facility] Hematocrit (Bld) [Volume fraction] 36 % Low 40.0 - 52.0 % [facility] Hemoglobin (Bld) [Mass/Vol] 11.6 g/dL Low 13.0 - 18.0 g/dL [facility] Immature granulocytes (Bld) [#/Vol] 0 10*3/uL NINF - 0.1 10*3/uL [facility] Immature granulocytes/100 WBC (Bld) 0 % 0.0 - 2.0 % [facility] Interpretation and review of laboratory results Abnormal [facility] Lymphocytes (Bld) [#/Vol] 1.4 10*3/uL 1.0 - 4.3 10*3/uL [facility] Lymphocytes/100 WBC (Bld) 45.1 % High 15.0 - 45.0 % [facility] MCH (RBC) [Entitic mass] 29.6 pg 26.0 - 34.0 pg [facility] MCHC (RBC) [Mass/Vol] 32.2 % 30.5 - 36.0 % [facility] MCV (RBC) [Entitic vol] 91.8 fL 77.0 - 99.0 fL [facility] Monocytes (Bld) [#/Vol] 0.2 10*3/uL 0.0 - 0.9 10*3/uL [facility] Monocytes/100 WBC (Bld) 7.2 % 5.0 - 13.0 % [facility] Neutrophils (Bld) [#/Vol] 1.5 10*3/uL Low 1.8 - 7.5 10*3/uL [facility] Neutrophils/100 WBC (Bld) 46.5 % 38.0 - 82.0 % [facility] Nucleated RBC/100 WBC (Bld) [Ratio] 0 % [facility] Platelet mean volume (Bld) [Entitic vol] 10.6 fL 9.0 - 12.7 fL [facility] Platelets (Bld) [#/Vol] 152 10*3/uL 140 - 440 10*3/uL [facility] RBC (Bld) [#/Vol] 3.92 10*6/uL Low 4.40 - 5.9 0 10*6/uL [facility] WBC (Bld) [#/Vol] 3.2 10*3/uL Low 3.6 - 10.7 10*3/uL [facility] CBC WITH AUTO DIFFERENTIALon 04-06-2024 Basophils (Bld) [#/Vol] 0.0 10*3/uL Normal 0.0-0.2 [facility] Comment on above: Performed By: #### L [id number] ####Scheduler Conveyor: SHENA GUERIN ([id number])[facility] ([facility])[address] [place] [address] Basophils/100 WBC (Bld) 0.3 % Normal 0.0-2.0 [facility] Comment on above: Performed By: #### L [id number] ####Scheduler Conveyor: SHENA GUERIN ([id number])[facility] Eosinophils (Bld) [#/Vol] 0.0 10*3/uL Normal 0.0-0.5 [facility] Comment on above: Performed By: #### L [id number] ####Scheduler Conveyor: SHENA GUERIN ([phone])[facility] Eosinophils/100 WBC (Bld) 0.9 % Normal 0.0-6.0 [facility] Comment on above: Performed By: #### L [id number] ####Scheduler Conveyor: SHENA GUERIN ([phone])[facility] ([facility])[address] [place] [address] Erythrocyte distribution width (RBC) [Ratio] 15.0 % Normal 11.5-15.0 [facility] Comment on above: Performed By: #### L [id number] ####Scheduler Conveyor: SHENA GUERIN ([id number])[facility] ([facility])[address] Hematocrit (Bld) [Volume fraction] 36.0 % Low 40.0-52.0 [facility] Comment on above: Performed By: #### L [id number] ####Scheduler Conveyor: SHENA CHAMPAGNEBETTY ([phone])[facility] ([facility])[address] [place] [address] Hemoglobin (Bld) [Mass/Vol] 11.6 g/dL Low 13.0-18.0 [facility] Comment on above: Performed By: #### L [id number] ####Scheduler Conveyor: SHENA GUERIN ([id number])[facility] ([facility])[address] [place] [address] IMMATURE GRANS % 0.0 % Normal 0.0-2.0 [facility] Comment on above: Performed By: #### L [id number] ####Scheduler Conveyor: SHENA GUERIN ([phone])[facility] ([facility])[address] [place] [address] IMMATURE GRANS ABSOLUTE 0.0 10*3/uL Normal <0.1 [facility] Comment on above: Performed By: #### L [id number] ####Scheduler Conveyor: SHENA GUERIN ([phone])[facility] ([facility])[address] [place] [address] Lymphocytes (Bld) [#/Vol] 1.4 10*3/uL Normal 1.0-4.3 [facility] Comment on above: Performed By: #### L [id number] ####Scheduler Conveyor: SHENA CHAMPAGNEBETTY ([phone])[facility] ([facility])[address] Lymphocytes/100 WBC (Bld) 45.1 % High 15.0-45.0 [facility] Comment on above: Performed By: #### L [id number] ####Scheduler Conveyor: SHENA CHAMPAGNEBETTY ([id number])[facility] CENTERKyler ENGELUNIVERSITY OF NEW MEX[facility] HOSPITALSN (SBHLAB)[address] MCH (RBC) [Entitic mass] 29.6 pg Normal 26.0-34.0 [facility] Comment on above: Performed By: #### L [id number] ####Scheduler Conveyor: SHENA DEL ROSARIOBeckieBETTY ([phone])[facility] CENTERKyler ENGELUNIVERSITY OF NEW MEXICO HOSPITALSTu (SBHLAB)[address] MCHC 32.2 % Normal 30.5-36.0 [facility] Comment on above: Performed By: #### L [id number] ####Scheduler Conveyor: SHENA CHAMPAGNEBETTY ([phone])[facility]ENTERKyler ENGELUNIVERSITY OF NEW MEXICO HOSPITALSTu (SBHLAB)[address] MCV (RBC) [Entitic vol] 91.8 fL Normal 77.0-99.0 [facility] Comment on above: Performed By: #### L [id number] ####Scheduler Conveyor: SHENA GUERIN ([id number])[facility] CENTERKyler ENGELUNIVERSITY OF NEW MEX[facility] HOSPITALSTu (SBHLAB)[address] Monocytes (Bld) [#/Vol] 0.2 10*3/uL Normal 0.0-0.9 [facility] Comment on above: Performed By: #### L [id number] ####Scheduler Conveyor: SHENA GUERIN ([id number])[facility] CENTERKyler ENGELUNIVERSITY OF [facility] HOSPITALSN ([facility])[address] Monocytes/100 WBC (Bld) 7.2 % Normal 5.0-13.0 [facility] Comment on above: Performed By: #### L [id number] ####Scheduler Conveyor: SHENAPILAR GUERIN ([phone])[facility]ENTERA [place] ([facility])[address] NEUTROPHILS ABSOLUTE 1.5 10*3/uL Low 1.8-7.5 [facility] Comment on above: Performed By: #### L [id number] ####Scheduler Conveyor: SHENA DEL ROSARIOHAMIDA ([id number])[facility] [place] ([facility])[address] Neutrophils/100 WBC (Bld) 46.5 % Normal 38.0-82.0 [facility] Comment on above: Performed By: #### L [id number] ####Scheduler Conveyor: SHENA GUERIN ([id number])[facility] [place] ([facility])[address] NRBC 0.0 /100 WBCs Normal 0.0-2.0 [facility] Comment on above: Performed By: #### L [id number] ####Scheduler Conveyor: SHENA APOORVA ([id number])[facility] [place] ([facility])[address] Platelet mean volume (Bld) [Entitic vol] 10.6 fL Normal 9.0-12.7 [facility] Comment on above: Performed By: #### L [id number] ####Scheduler Conveyor: SHENA CHAMPAGNEBETTY ([id number])[facility] [place] ([facility])[address] Platelets (Bld) [#/Vol] 152 10*3/uL Normal 140-440 [facility] Comment on above: Performed By: #### L [id number] ####Scheduler Conveyor: SHENA APOORVA ([id number])[facility] [place] ([facility])[address] RBC (Bld) [#/Vol] 3.92 10*6/uL Low 4.40-5.90 [facility] Comment on above: Performed By: #### L [id number] ####Scheduler Conveyor: SHENA GUERIN ([id number])[facility] [place] ([facility])[address] WBC (Bld) [#/Vol] 3.2 10*3/uL Low 3.6-10.7 [facility] Comment on above: Performed By: #### L [id number] ####Scheduler Conveyor: SHENA GUERIN ([id number])[facility] [place] ([facility])[address] COMPREHENSIVE METABOLIC PANE Rylan 04-06-2024 Albumin [Mass/Vol] 3.0 g/dL Low 3.5-5.0 [facility] Comment on above: Performed By: #### L [id number] ####Scheduler Conveyor: SHENA GUERIN ([phone])[facility] [place] ([facility])[address] ALP [Catalytic activity/Vol] 127 U/L Normal 40-150 [facility] Comment on above: Performed By: #### L [id number] ####Scheduler Conveyor: SHENA GUERIN ([phone])[facility] [place] ([facility])[address] ALT [Catalytic activity/Vol] 72 U/L High <40 [facility] Comment on above: Performed By: #### L [id number] ####Scheduler Conveyor: SHENA GUERIN ([phone])[facility] [place] ([facility])[address] Anion gap [Moles/Vol] 6 mmol/L Normal 3-13 [facility] Comment on above: Performed By: #### L [id number] ####Scheduler Conveyor: SHENA GUERIN ([id number])[facility] [place] ([facility])[address] AST [Catalytic activity/Vol] 102 U/L High <34 [facility] Comment on above: Performed By: #### L [id number] ####Scheduler Conveyor: SHENA GUERIN ([id number])[facility] [place] ([facility])[address] Bilirubin [Mass/Vol] 1.5 mg/dL High <1.2 [facility] Comment on above: Performed By: #### L [id number] ####Scheduler Conveyor: SHENA GUERIN ([phone])[facility] [place] ([facility])[address] Calcium [Mass/Vol] 8.2 mg/dL Low 8.4-10.2 [facility] Comment on above: Performed By: #### L [id number] ####Scheduler Conveyor: SHENA GUERIN ([id number])[facility] [place] ([facility])[address] Chloride [Moles/Vol] 111 mmol/L High 98-107 [facility] Comment on above: Performed By: #### L [id number] ####Scheduler Conveyor: SHENA GUERIN ([id number])[facility] [place] ([facility])[address] CO2 [Moles/Vol] 21 mmol/L Low 22-29 [facility] Comment on above: Performed By: #### L [id number] ####Scheduler Conveyor: SHENA GUERIN ([id number])[facility] [place] ([facility])[address] Creatinine [Mass/Vol] 0.57 mg/dL Low 0.72-1.25 [facility] Comment on above: Performed By: #### L [id number] ####Scheduler Conveyor: SHENA GUERIN ([id number])[facility] [place] ([facility])[address] GLOMERULAR FILTRATION RATE ML/MIN/1.73 SQ M.PREDICTED >90.0 Normal >60.0 [facility] Comment on above: Result Comment: Calc ulation based on the Chronic Kidney Disease Epidemiology Collaboration (CKD-EPI) equation refit without adjustment for race Performed By: #### L [id number] ####Scheduler Conveyor: SHENA GUERIN ([id number])[facility] CENTERKyler NEUMANNTu (SBHLAB)[address] Glucose [Mass/Vol] 102 mg/dL High 74-100 [facility] Comment on above: Performed By: #### L [id number] ####Scheduler Conveyor: SHENA GUERIN ([phone])[facility] CENTERKyler [facility]ELSUM[facility] (SB[facility])[address] Potassium [Moles/Vol] 4.0 mmol/L Normal 3.5-5.1 [facility] Comment on above: Result Comment: [facility] potassium values may be up to 0.5 mmol/L lower than serum values. Performed By: #### L [id number] ####Scheduler Conveyor: SHENA GUERIN ([phone])[facility] CENTERKyler NEUMANN ([facility])[address] Protein [Mass/Vol] 5.7 g/dL Low 6.4-8.3 [facility] Comment on above: Performed By: #### L [id number] ####Scheduler Conveyor: SHENA GUERIN ([id number])[facility] CENTERKyler [place] ([facility])[address] Sodium [Moles/Vol] 138 mmol/L Normal 136-145 [facility] Comment on above: Performed By: #### L [id number] ####Scheduler Conveyor: SHENA GUERIN ([id number])[facility] ([facility])[address] Urea nitrogen [Mass/Vol] mg/dL Low 8-21 [facility] Comment on above: Performed By: #### L [id number] ####Scheduler Conveyor: SHENA GUERIN ([phone])[facility] ([facility])[address] Comprehensive metabolic 1998 panelon 04-06-2024 Albumin [Mass/Vol] 3 g/dL Low 3.5 - 5.0 g/dL [facility] ALP [Catalytic activity/Vol] 127 U/L 40 - 150 U/L [facility] ALT [Catalytic activity/Vol] 72 U/L High NINF - 40 U/L [facility] Anion gap [Moles/Vol] 6 mmol/L 3 - 13 mmol/L [facility] AST [Catalytic activity/Vol] 102 U/L High NINF - 34 U/L [facility] Bilirubin [Mass/Vol] 1.5 mg/dL High NINF - 1.2 mg/dL [facility] Calcium [Mass/Vol] 8.2 mg/dL Low 8.4 - 10. 2 mg/dL [facility] Chloride [Moles/Vol] 111 mmol/L High 98 - 10 7 mmol/L [facility] CO2 [Moles/Vol] 21 mmol/L Low 22 - 29 mmol/L [facility] Creatinine [Mass/Vol] 0.57 mg/dL Low 0.72 - 1.25 mg/dL [facility] GFR/1.73 sq M.predicted (S/P/Bld) [Vol rate/Area] - PINF [facility] Comment on above: Calculation based on the Chronic Kidney Disease Epidemiology Collaboration (CKD-EPI) equation refit without adjustment for race Glucose [Mass/Vol] 102 mg/dL High 74 - 100 mg/dL [facility] Interpretation and review of laboratory results Abnormal [facility] Potassium [Moles/Vol] 4 mmol/L 3.5 - 5.1 mmol/L [facility] Comment on above: Plasma potassium víctor ues may be up to 0.5 mmol/L lower than serum values. Protein [Mass/Vol] 5.7 g/dL Low 6.4 - 8.3 g/dL [facility] Sodium [Moles/Vol] 138 mmol/L 136 - 145 mmol/L [facility] Urea nitrogen [Mass/Vol] mg/dL Low 8 - 21 mg/dL [facility] Progress Noteon 04-06-2024 Progress Note Normal [facility] Progress Note Nutrition rescreen complete. Pt assigned a level one for nutrition care. Normal [facility] CBC W Auto Differential pane l (Bld)Ordered By: Wanda Frias on 04-05-2024 Basophils (Bld) [#/Vol] 0 10*3/uL 0.0 - 0.2 10*3/uL [facility] Basophils/100 WBC (Bld) 0.6 % 0.0 - 2.0 % [facility] Eosinophils (Bld) [#/Vol] 0 10*3/uL 0.0 - 0.5 10*3/uL [facility] Eosinophils/100 WBC (Bld) 0.6 % 0.0 - 6.0 % [facility] Erythrocyte distribution width (RBC) [Ratio] 15.1 % High 11.5 - 15.0 % [facility] Hematocrit (Bld) [Volume fraction] 40.1 % 40.0 - 52.0 % [facility] Hemoglobin (Bld) [Mass/Vol] 13 g/dL 13.0 - 18.0 g/dL [facility] Immature granulocytes (Bld) [#/Vol] 0 10*3/uL NINF - 0.1 10*3/uL [facility] Immature granulocytes/100 WBC (Bld) 0 % 0.0 - 2.0 % [facility] Interpretation and review of laboratory results Abnormal [facility] Lymphocytes (Bld) [#/Vol] 1.6 10*3/uL 1.0 - 4.3 10*3/uL [facility] Lymphocytes/100 WBC (Bld) 46.4 % High 15.0 - 45.0 % [facility] MCH (RBC) [Entitic mass] 29.3 pg 26.0 - 34.0 pg [facility] MCHC (RBC) [Mass/Vol] 32.4 % 30.5 - 36.0 % [facility] MCV (RBC) [Entitic vol] 90.3 fL 77.0 - 99.0 fL [facility] Monocytes (Bld) [#/Vol] 0.3 10*3/uL 0.0 - 0.9 10*3/uL [facility] Monocytes/100 WBC (Bld) 9.2 % 5.0 - 13.0 % [facility] Neutrophils (Bld) [#/Vol] 1.5 10*3/uL Low 1.8 - 7.5 10*3/uL [facility] Neutrophils/100 WBC (Bld) 43.2 % 38.0 - 82.0 % [facility] Nucleated RBC/100 WBC (Bld) [Ratio] 0 % [facility] Platelet mean volume (Bld) [Entitic vol] 10 fL 9.0 - 12.7 fL [facility] Platelets (Bld) [#/Vol] 153 10*3/uL 140 - 440 10*3/uL [facility] RBC (Bld) [#/Vol] 4.44 10*6/uL 4.40 - 5.9 0 10*6/uL [facility] WBC (Bld) [#/Vol] 3.5 10*3/uL Low 3.6 - 10.7 10*3/uL [facility] CBC WITH AUTO DIFFERENTIALon 04-05-2024 Basophils (Bld) [#/Vol] 0.0 10*3/uL Normal 0.0-0.2 [facility] Comment on above: Performed By: #### L [id number] ####Scheduler Conveyor: SHENA GUERIN ([id number])[facility] [place] ([facility])[address] Basophils/100 WBC (Bld) 0.6 % Normal 0.0-2.0 [facility] Comment on above: Performed By: #### L [id number] ####Scheduler Conveyor: SHENA GUERIN ([phone])[facility] [place] (SB[facility])[address] [place] [address] [place] Eosinophils (Bld) [#/Vol] 0.0 10*3/uL Normal 0.0-0.5 [facility] Comment on above: Performed By: #### L [id number] ####Scheduler Conveyor: SHENA GUERIN ([id number])[facility] [place] ([facility])[address] [place] [address] [place] Eosinophils/100 WBC (Bld) 0.6 % Normal 0.0-6.0 [facility] Comment on above: Performed By: #### L [id number] ####Scheduler Conveyor: SHENA GUERIN ([id number])[facility] [place] ([facility])[address] [place] [address] [place] Erythrocyte distribution width (RBC) [Ratio] 15.1 % High 11.5-15.0 [facility] Comment on above: Performed By: #### L [id number] ####Scheduler Conveyor: SHENA GUERIN ([phone])[facility] [place] ([facility])[address] Hematocrit (Bld) [Volume fraction] 40.1 % Normal 40.0-52.0 [facility] Comment on above: Performed By: #### L [id number] ####Scheduler Conveyor: SHENA CHAMPAGNEBETTY ([id number])[facility] [place] ([facility])[address] Hemoglobin (Bld) [Mass/Vol] 13.0 g/dL Normal 13.0-18.0 [facility] Comment on above: Performed By: #### L [id number] ####Scheduler Conveyor: SHENA GUERIN ([id number])[facility]A [facility] (SB[facility])[address] IMMATURE GRANS % 0.0 % Normal 0.0-2.0 [facility] Comment on above: Performed By: #### L [id number] ####Scheduler Conveyor: SHENA GUERIN ([id number])[facility] ([facility])[address] IMMATURE GRANS ABSOLUTE 0.0 10*3/uL Normal <0.1 [facility] Comment on above: Performed By: #### L [id number] ####Scheduler Conveyor: SHENA GUERIN ([phone])[facility] ([facility])[address] Lymphocytes (Bld) [#/Vol] 1.6 10*3/uL Normal 1.0-4.3 [facility] Comment on above: Performed By: #### L [id number] ####Scheduler Conveyor: SHENA GUERIN ([phone])[facility]ENTERA BARBUNIVERSITY OF NEW [facility]EX[facility] HOSPITALSN (SBHLAB)[address] [place] [address] [place] Lymphocytes/100 WBC (Bld) 46.4 % High 15.0-45.0 [facility] Comment on above: Performed By: #### L [id number] ####Scheduler Conveyor: SHENA GUERIN ([phone])[facility] ([facility])[address] MCH (RBC) [Entitic mass] 29.3 pg Normal 26.0-34.0 [facility] Comment on above: Performed By: #### L [id number] ####Scheduler Conveyor: SHENA CHAMPAGNEBETTY ([id number])[facility] [place] ([facility])[address] MCHC 32.4 % Normal 30.5-36.0 [facility] Comment on above: Performed By: #### L [id number] ####Scheduler Conveyor: SHENA CHAMPAGNEBETTY ([id number])[facility] [place] ([facility])[address] MCV (RBC) [Entitic vol] 90.3 fL Normal 77.0-99.0 [facility] Comment on above: Performed By: #### L [id number] ####Scheduler Conveyor: SHENA GUERIN ([id number])[facility] [place] ([facility])[address] Monocytes (Bld) [#/Vol] 0.3 10*3/uL Normal 0.0-0.9 [facility] Comment on above: Performed By: #### L [id number] ####Scheduler Conveyor: SHENA GUERIN ([id number])[facility] [place] ([facility])[address] Monocytes/100 WBC (Bld) 9.2 % Normal 5.0-13.0 [facility] Comment on above: Performed By: #### L [id number] ####Scheduler Conveyor: SHENA GUERIN ([id number])[facility] [place] ([facility])[address] NEUTROPHILS ABSOLUTE 1.5 10*3/uL Low 1.8-7.5 [facility] Comment on above: Performed By: #### L [id number] ####Scheduler Conveyor: SHENA GUERIN ([phone])[facility] [place] ([facility])[address] Neutrophils/100 WBC (Bld) 43.2 % Normal 38.0-82.0 [facility] Comment on above: Performed By: #### L [id number] ####Scheduler Conveyor: SHENA GUERIN ([id number])[facility] [place] ([facility])[address] NRBC 0.0 /100 WBCs Normal 0.0-2.0 [facility] Comment on above: Performed By: #### L [id number] ####Scheduler Conveyor: SHENA GUERIN ([id number])[facility]A BARBUNIVERSITY OF NEW MEX[facility] HOSPITALSN (SBHLAB)[address] Platelet mean volume (Bld) [Entitic vol] 10.0 fL Normal 9.0-12.7 [facility] Comment on above: Performed By: #### L [id number] ####Scheduler Conveyor: SHENA GUERIN ([id number])[facility] [place] ([facility])[address] Platelets (Bld) [#/Vol] 153 10*3/uL Normal 140-440 [facility] Comment on above: Performed By: #### L [id number] ####Scheduler Conveyor: SHENA GUERIN ([phone])[facility] [place] ([facility])[address] RBC (Bld) [#/Vol] 4.44 10*6/uL Normal 4.40-5.90 [facility] Comment on above: Performed By: #### L [id number] ####Scheduler Conveyor: SHENA GUERIN ([phone])[facility] [place] ([facility])[address] [place] [address] [place] WBC (Bld) [#/Vol] 3.5 10*3/uL Low 3.6-10.7 [facility] Comment on above: Performed By: #### L [id number] ####Scheduler Conveyor: SHENA GUERIN ([id number])[facility] [place] ([facility])[address] COMPREHENSIVE METABOLIC PANE Rylan 04-05-2024 Albumin [Mass/Vol] 3.5 g/dL Normal 3.5-5.0 [facility] Comment on above: Performed By: #### L [id number] ####Scheduler Conveyor: SHENA GUERIN ([id number])[facility] [place] ([facility])[address] ALP [Catalytic activity/Vol] 140 U/L Normal 40-150 [facility] Comment on above: Performed By: #### L [id number] ####Scheduler Conveyor: SHENA GUERIN ([phone])[facility] [place] ([facility])[address] ALT [Catalytic activity/Vol] 104 U/L High <40 [facility] Comment on above: Performed By: #### L [id number] ####Scheduler Conveyor: SHENA GUERIN ([id number])[facility] [place] ([facility])[address] Anion gap [Moles/Vol] 9 mmol/L Normal 3-13 [facility] Comment on above: Performed By: #### L [id number] ####Scheduler Conveyor: SHENA GUERIN ([phone])[facility] [place] (SB[facility]AB)[address] AST [Catalytic activity/Vol] 149 U/L High <34 [facility] Comment on above: Performed By: #### L [id number] ####Scheduler Conveyor: SHENA GUERIN ([phone])[facility] [place] (SB[facility]AB)[address] [place] [address] [place] Bilirubin [Mass/Vol] 1.6 mg/dL High <1.2 [facility] Comment on above: Performed By: #### L [id number] ####Scheduler Conveyor: SHENA GUERIN ([id number])[facility] [place] (SBHLAB)[address] Calcium [Mass/Vol] 8.5 mg/dL Normal 8.4-10.2 [facility] Comment on above: Performed By: #### L [id number] ####Scheduler Conveyor: SHENA GUERIN ([phone])[facility] (SBHLAB)[address] Chloride [Moles/Vol] 104 mmol/L Normal 98-107 [facility] Comment on above: Performed By: #### L [id number] ####Scheduler Conveyor: SHENA GUERIN ([phone])[facility] [place] (SB[facility]AB)[address] CO2 [Moles/Vol] 21 mmol/L Low 22-29 [facility] Comment on above: Performed By: #### L [id number] ####Scheduler Conveyor: SHENA GUEIRN ([phone])[facility] [place] (SBHLAB)[address] Creatinine [Mass/Vol] 0.66 mg/dL Low 0.72-1.25 [facility] Comment on above: Performed By: #### L [id number] ####Scheduler Conveyor: SHENA GUERIN ([id number])[facility]ENTERA BARBUNIVERSITY [facility] HOSPITALSN (SBHLAB)[address] GLOMERULAR FILTRATION RATE ML/MIN/1.73 SQ M.PREDICTED >90.0 Normal >60.0 [facility] Comment on above: Result Comment: Calc ulation based on the Chronic Kidney Disease Epidemiology Collaboration (CKD-EPI) equation refit without adjustment for race Performed By: #### L [id number] ####Scheduler Conveyor: SHENA GUERIN ([phone])[facility] MEDICAL CENTERKyler [place] (SBHLAB)[address] [place] [address] [place] Glucose [Mass/Vol] 102 mg/dL High 74-100 [facility] Comment on above: Performed By: #### L [id number] ####Scheduler Conveyor: SHENA GUERIN ([phone])[facility] [place] (SBHLAB)[address] [place] [address] [place] Potassium [Moles/Vol] 4.1 mmol/L Normal 3.5-5.1 [facility] Comment on above: Result Comment: [facility] potassium values may be up to 0.5 mmol/L lower than serum values. Performed By: #### L AB17 ####Scheduler Conveyor: SHENA GUERIN ([phone])[facility] CENTERKyler ENGELUNIVERSITY OF NEW MEX[facility] HOSPITALSN (SBHLAB)[address] Protein [Mass/Vol] 6.4 g/dL Normal 6.4-8.3 [facility] Comment on above: Performed By: #### L [id number] ####Scheduler Conveyor: SHENA GUERIN ([id number])[facility] [place] (SBHLAB)[address] Sodium [Moles/Vol] 134 mmol/L Low 136-145 [facility] Comment on above: Performed By: #### L [id number] ####Scheduler Conveyor: SHENA GUERIN ([phone])[facility]A [facility] (SBHLAB)[address] Urea nitrogen [Mass/Vol] 3 mg/dL Low 8-21 [facility] Comment on above: Performed By: #### L [id number] ####Scheduler Conveyor: SHENA GUERIN ([phone])[facility] (SBHLAB)[address] Comprehensive metabolic 1998 panelon 04-05-2024 Albumin [Mass/Vol] 3.5 g/dL 3.5 - 5.0 g/dL [facility] ALP [Catalytic activity/Vol] 140 U/L 40 - 150 U/L [facility] ALT [Catalytic activity/Vol] 104 U/L High NINF - 40 U/L [facility] Anion gap [Moles/Vol] 9 mmol/L 3 - 13 mmol/L [facility] AST [Catalytic activity/Vol] 149 U/L High NINF - 34 U/L [facility] Bilirubin [Mass/Vol] 1.6 mg/dL High NINF - 1.2 mg/dL [facility] Calcium [Mass/Vol] 8.5 mg/dL 8.4 - 10. 2 mg/dL [facility] Chloride [Moles/Vol] 104 mmol/L 98 - 10 7 mmol/L [facility] CO2 [Moles/Vol] 21 mmol/L Low 22 - 29 mmol/L [facility] Creatinine [Mass/Vol] 0.66 mg/dL Low 0.72 - 1.25 mg/dL [facility] GFR/1.73 sq M.predicted (S/P/Bld) [Vol rate/Area] - PINF [facility] Comment on above: Calculation based on the Chronic Kidney Disease Epidemiology Collaboration (CKD-EPI) equation refit without adjustment for race Glucose [Mass/Vol] 102 mg/dL High 74 - 100 mg/dL [facility] Interpretation and review of laboratory results Abnormal [facility] Potassium [Moles/Vol] 4.1 mmol/L 3.5 - 5.1 mmol/L [facility] Comment on above: Plasma potassium víctor ues may be up to 0.5 mmol/L lower than serum values. Protein [Mass/Vol] 6.4 g/dL 6.4 - 8.3 g/dL [facility] Sodium [Moles/Vol] 134 mmol/L Low 136 - 145 mmol/L [facility] Urea nitrogen [Mass/Vol] 3 mg/dL Low 8 - 21 mg/dL [facility] Progress Noteon 04-05-2024 Progress Note Normal [facility] Progress Note Normal [facility] CBC W Auto Differential pane l (Bld)on 04-04-2024 Basophils (Bld) [#/Vol] 0.1 10*3/uL 0.0 - 0.2 10*3/uL [facility] Basophils/100 WBC (Bld) 0.8 % 0.0 - 2.0 % [facility] Eosinophils (Bld) [#/Vol] 0 10*3/uL 0.0 - 0.5 10*3/uL [facility] Eosinophils/100 WBC (Bld) 0.5 % 0.0 - 6.0 % [facility] Erythrocyte distribution width (RBC) [Ratio] 15.3 % High 11.5 - 15.0 % [facility] Hematocrit (Bld) [Volume fraction] 44.7 % 40.0 - 52.0 % [facility] Hemoglobin (Bld) [Mass/Vol] 15 g/dL 13.0 - 18.0 g/dL [facility] Immature granulocytes (Bld) [#/Vol] 0 10*3/uL NINF - 0.1 10*3/uL [facility] [employer] Immature granulocytes/100 WBC (Bld) 0.2 % 0.0 - 2.0 % [facility] Interpretation and review of laboratory results Abnormal [facility] Lymphocytes (Bld) [#/Vol] 3.3 10*3/uL 1.0 - 4.3 10*3/uL [facility] Lymphocytes/100 WBC (Bld) 56.1 % High 15.0 - 45.0 % [facility] MCH (RBC) [Entitic mass] 29.4 pg 26.0 - 34.0 pg [facility] MCHC (RBC) [Mass/Vol] 33.6 % 30.5 - 36.0 % [facility] MCV (RBC) [Entitic vol] 87.5 fL 77.0 - 99.0 fL [facility] Monocytes (Bld) [#/Vol] 0.5 10*3/uL 0.0 - 0.9 10*3/uL [facility] Monocytes/100 WBC (Bld) 8.2 % 5.0 - 13.0 % [facility] Neutrophils (Bld) [#/Vol] 2 10*3/uL 1.8 - 7.5 10*3/uL [facility] Neutrophils/100 WBC (Bld) 34.2 % Low 38.0 - 82.0 % [facility] Nucleated RBC/100 WBC (Bld) [Ratio] 0 % [facility] Platelet mean volume (Bld) [Entitic vol] 9.8 fL 9.0 - 12.7 fL [facility] Platelets (Bld) [#/Vol] 260 10*3/uL 140 - 440 10*3/uL [facility] RBC (Bld) [#/Vol] 5.11 10*6/uL 4.40 - 5.9 0 10*6/uL [facility] WBC (Bld) [#/Vol] 5.9 10*3/uL 3.6 - 10.7 10*3/uL [facility] CBC WITH AUTO DIFFERENTIALon 04-04-2024 Basophils (Bld) [#/Vol] 0.1 10*3/uL Normal 0.0-0.2 [facility] Comment on above: Performed By: #### L [id number] ####Scheduler Conveyor: SHENA GUERIN ([id number])[facility] [place] (SBHLAB)[address] Basophils/100 WBC (Bld) 0.8 % Normal 0.0-2.0 [facility] Comment on above: Performed By: #### L [id number] ####Scheduler Conveyor: SHENA CHAMPAGNEBETTY ([phone])[facility] [place] (SBHLAB)[address] Eosinophils (Bld) [#/Vol] 0.0 10*3/uL Normal 0.0-0.5 [facility] Comment on above: Performed By: #### L [id number] ####Scheduler Conveyor: SHENA CHAMPAGNEBETTY ([id number])[facility] [place] (SBHLAB)[address] Eosinophils/100 WBC (Bld) 0.5 % Normal 0.0-6.0 [facility] Comment on above: Performed By: #### L [id number] ####Scheduler Conveyor: SHENA CHAMPAGNEBETTY ([id number])[facility] [place] (SBHLAB)[address] Erythrocyte distribution width (RBC) [Ratio] 15.3 % High 11.5-15.0 [facility] Comment on above: Performed By: #### L [id number] ####Scheduler Conveyor: SHENA GUERIN ([id number])[facility] [place] (SBHLAB)[address] [place] [address] Hematocrit (Bld) [Volume fraction] 44.7 % Normal 40.0-52.0 [facility] Comment on above: Performed By: #### L [id number] ####Scheduler Conveyor: SHENA GUERIN ([id number])[facility] [place] (SBHLAB)[address] Hemoglobin (Bld) [Mass/Vol] 15.0 g/dL Normal 13.0-18.0 [facility] Comment on above: Performed By: #### L [id number] ####Scheduler Conveyor: SHENA GUERIN ([phone])[facility] [place] (SBHLAB)[address] IMMATURE GRANS % 0.2 % Normal 0.0-2.0 [facility] Comment on above: Performed By: #### L [id number] ####Scheduler Conveyor: SHENA GUERIN ([phone])[facility]A BARBUNIVERS[facility]OSPITALSN (SBHLAB)[address] IMMATURE GRANS ABSOLUTE 0.0 10*3/uL Normal <0.1 [facility] Comment on above: Performed By: #### L [id number] ####Scheduler Conveyor: SHENA GUERIN ([id number])[facility]UNIV[facility]ALSN (SBHLAB)[address] Lymphocytes (Bld) [#/Vol] 3.3 10*3/uL Normal 1.0-4.3 [facility] Comment on above: Performed By: #### L [id number] ####Scheduler Conveyor: SHENA GUERIN ([id number])[facility]UN[facility]ALSN (SBHLAB)[address] Lymphocytes/100 WBC (Bld) 56.1 % High 15.0-45.0 [facility] Comment on above: Performed By: #### L [id number] ####Scheduler Conveyor: SHENA GUERIN ([id number])[facility]A [place] (SBHLAB)[address] MCH (RBC) [Entitic mass] 29.4 pg Normal 26.0-34.0 [facility] Comment on above: Performed By: #### L [id number] ####Scheduler Conveyor: SHENA GUERIN ([id number])[facility] [place] (SBHLAB)[address] MCHC 33.6 % Normal 30.5-36.0 [facility] Comment on above: Performed By: #### L [id number] ####Scheduler Conveyor: SHENA GUERIN ([id number])[facility] [place] (SBHLAB)[address] MCV (RBC) [Entitic vol] 87.5 fL Normal 77.0-99.0 [facility] Comment on above: Performed By: #### L [id number] ####Scheduler Conveyor: SHENA GUERIN ([phone])[facility] [place] (SBHLAB)[address] Monocytes (Bld) [#/Vol] 0.5 10*3/uL Normal 0.0-0.9 [facility] Comment on above: Performed By: #### L [id number] ####Scheduler Conveyor: SHENA GUERIN ([id number])[facility] [place] (SBHLAB)[address] Monocytes/100 WBC (Bld) 8.2 % Normal 5.0-13.0 [facility] Comment on above: Performed By: #### L [id number] ####Scheduler Conveyor: SHENA GUERIN ([id number])[facility] [place] (SBHLAB)[address] NEUTROPHILS ABSOLUTE 2.0 10*3/uL Normal 1.8-7.5 [facility] Comment on above: Performed By: #### L [id number] ####Scheduler Conveyor: SHENA GUERIN ([id number])[facility] [place] (SBHLAB)[address] Neutrophils/100 WBC (Bld) 34.2 % Low 38.0-82.0 [facility] Comment on above: Performed By: #### L [id number] ####Scheduler Conveyor: SHENA GUERIN ([id number])[facility] [place] (SBHLAB)[address] [place] [address] [place] NRBC 0.0 /100 WBCs Normal 0.0-2.0 [facility] Comment on above: Performed By: #### L [id number] ####Scheduler Conveyor: SHENA GUERIN ([id number])[facility] [place] (SBHLAB)[address] Platelet mean volume (Bld) [Entitic vol] 9.8 fL Normal 9.0-12.7 [facility] Comment on above: Performed By: #### L [id number] ####Scheduler Conveyor: SHENA GUERIN ([id number])[facility] [place] (SBHLAB)[address] Platelets (Bld) [#/Vol] 260 10*3/uL Normal 140-440 [facility] Comment on above: Performed By: #### L [id number] ####Scheduler Conveyor: SHENA GUERIN ([phone])[facility] [place] (SBHLAB)[address] RBC (Bld) [#/Vol] 5.11 10*6/uL Normal 4.40-5.90 [facility] Comment on above: Performed By: #### L [id number] ####Scheduler Conveyor: SHENA GUERIN ([id number])[facility] [place] (SBHLAB)[address] WBC (Bld) [#/Vol] 5.9 10*3/uL Normal 3.6-10.7 [facility] Comment on above: Performed By: #### L [id number] ####Scheduler Conveyor: SHENA GUERIN ([phone])[facility] [place] (SBHLAB)[address] COMPLETE URINALYSISon 2024 BILIRUBIN, TOTAL PRESENCE IN URINE Negative Normal Negative [facility] Comment on above: Performed By: #### L [id number] ####Scheduler Conveyor: SHENA GUERIN ([phone])[facility] [place] (SBHLAB)[address] Clarity (U) Clear Normal Clear [facility] Comment on above: Performed By: #### L [id number] ####Scheduler Conveyor: SHENA GUERIN ([id number])[facility] [place] (SBHLAB)[address] Color (U) Light Yellow Normal Lt. Yellow [facility] Comment on above: Performed By: #### L [id number] ####Scheduler Conveyor: SHENA GUERIN ([phone])[facility] GLUCOSE (MG/DL) IN URINE Normal Normal Normal (<70) [facility] Comment on above: Performed By: #### L [id number] ####Scheduler Conveyor: SHENA GUERIN ([id number])[facility] HEMOGLOBIN PRESENCE IN URINE Negative Normal Negative [facility] Comment on above: Performed By: #### L [id number] ####Scheduler Conveyor: SHENA GUERIN ([id number])[facility] ([facility])[address] [place] [address] Ketones Ql (U) Negative Normal Negative [facility] Comment on above: Performed By: #### L [id number] ####Scheduler Conveyor: SHENA GUERIN ([id number])[facility] ([facility])[address] [place] [address] LEUKOCYTE ESTERASE PRESENCE IN URINE BY TEST STRIP Negative Normal Negative [facility] Comment on above: Performed By: #### L [id number] ####Scheduler Conveyor: SHENA GUERIN ([phone])[facility] [place] [address] NITRITE PRESENCE IN URINE Negative Normal Negative [facility] Comment on above: Performed By: #### L [id number] ####Scheduler Conveyor: SHENA GUERIN ([phone])[facility] [place] [address] pH (U) 6.0 [pH] Normal 5.0-8.0 [facility] Comment on above: Performed By: #### L [id number] ####Scheduler Conveyor: SHENA GUERIN ([id number])[facility]A [facility]BUNIV[facility]ALSN (SBHLAB)[address] Protein (U) [Mass/Vol] Negative Normal Negative [facility] Comment on above: Performed By: #### L [id number] ####Scheduler Conveyor: SHENA CHAMPAGNEBETTY ([id number])[facility] CENTERKyler ENGELUNIVERSITY OF NEW MEXICO HOSPITALSN (SBHLAB)[address] Specific gravity (U) [Rel density] 1.008 Normal 1.005-1.030 [facility] Comment on above: Performed By: #### L [id number] ####Scheduler Conveyor: SHENA GUERIN ([phone])[facility]A [facility] (SBHLAB)[address] UROBILINOGEN (MG/DL) IN URINE Normal Normal Normal (0-1) [facility] Comment on above: Performed By: #### L [id number] ####Scheduler Conveyor: SHENA GUERIN ([phone])[facility] CENTERKyler [facility] (SBHLAB)[address] COMPREHENSIVE METABOLIC PANE Rylan 04-04-2024 Albumin [Mass/Vol] 4.3 g/dL Normal 3.5-5.0 [facility] Comment on above: Performed By: #### L AB17, LAB46, LAB99 ####Scheduler Conveyor: SHENA GUERIN ([phone])[facility] CENTERKyler [facility] (SBHLAB)[address] [place] [address] [place] ALP [Catalytic activity/Vol] 183 U/L High 40-150 [facility] Comment on above: Performed By: #### L AB17, LAB46, LAB99 ####Scheduler Conveyor: SHENA GUERIN ([phone])[facility] [place] (SBHLAB)[address] ALT [Catalytic activity/Vol] 166 U/L High <40 [facility] Comment on above: Performed By: #### L AB17, LAB46, LAB99 ####Scheduler Conveyor: SHENA GUERIN ([phone])[facility]A [place] (SBHLAB)[address] Anion gap [Moles/Vol] 14 mmol/L High 3-13 [facility] Comment on above: Performed By: #### L AB17, LAB46, LAB99 ####Scheduler Conveyor: SHENA GUERIN ([id number])[facility] CENTERKyler [facility]ELUNIV[facility]ALSN (SBHLAB)[address] AST [Catalytic activity/Vol] 258 U/L High <34 [facility] Comment on above: Performed By: #### L AB17, LAB46, LAB99 ####Scheduler Conveyor: SHENA GUERIN ([id number])[facility]ENTERA OLLIEUNIVERSITY [facility] HOSPITALSN (SBHLAB)[address] Bilirubin [Mass/Vol] 1.0 mg/dL Normal <1.2 [facility] Comment on above: Performed By: #### L AB17, LAB46, LAB99 ####Scheduler Conveyor: SHENA GUERIN ([phone])[facility] CENTERKyler ENGELUNIVERS[facility]ALSN (SBHLAB)[address] Calcium [Mass/Vol] 9.3 mg/dL Normal 8.4-10.2 [facility] Comment on above: Performed By: #### L AB17, LAB46, LAB99 ####Scheduler Conveyor: SHENA GUERIN ([id number])[facility] (SBHLAB)[address] [place] [address] [place] Chloride [Moles/Vol] 102 mmol/L Normal 98-107 [facility] Comment on above: Performed By: #### L AB17, LAB46, LAB99 ####Scheduler Conveyor: SHENA GUERIN ([id number])[facility] (SBHLAB)[address] [place] [address] [place] CO2 [Moles/Vol] 21 mmol/L Low 22-29 [facility] Comment on above: Performed By: #### L AB17, LAB46, LAB99 ####Scheduler Conveyor: SHENA GUERIN ([phone])[facility] (SBHLAB)[address] Creatinine [Mass/Vol] 0.72 mg/dL Normal 0.72-1.25 [facility] Comment on above: Performed By: #### L AB17, LAB46, LAB99 ####Scheduler Conveyor: SHENA GUERIN ([id number])[facility] CENTERKyler [place] (SBHLAB)[address] GLOMERULAR FILTRATION RATE ML/MIN/1.73 SQ M.PREDICTED >90.0 Normal >60.0 [facility] Comment on above: Result Comment: Calc ulation based on the Chronic Kidney Disease Epidemiology Collaboration (CKD-EPI) equation refit without adjustment for race Performed By: #### L AB17, LAB46, LAB99 ####Scheduler Conveyor: SEHNA GUERIN ([id number])[facility] (SBHLAB)[address] Glucose [Mass/Vol] 150 mg/dL High 74-100 [facility] Comment on above: Performed By: #### L AB17, LAB46, LAB99 ####Scheduler Conveyor: SHENA GUERIN ([phone])[facility] (SBHLAB)[address] Potassium [Moles/Vol] 3.5 mmol/L Normal 3.5-5.1 [facility] Comment on above: Result Comment: [facility] potassium values may be up to 0.5 mmol/L lower than serum values. Performed By: #### L AB17, LAB46, LAB99 ####Scheduler Conveyor: SHENA GUERIN ([id number])[facility] (SBHLAB)[address] Protein [Mass/Vol] 8.0 g/dL Normal 6.4-8.3 [facility] Comment on above: Performed By: #### L AB17, LAB46, LAB99 ####Scheduler Conveyor: SHENA GUERIN ([id number])[facility] (SBHLAB)[address] Sodium [Moles/Vol] 137 mmol/L Normal 136-145 [facility] Comment on above: Performed By: #### L AB17, LAB46, LAB99 ####Scheduler Conveyor: SHENA GUERIN ([phone])[facility] (SBHLAB)[address] Urea nitrogen [Mass/Vol] 4 mg/dL Low 8-21 [facility] Comment on above: Performed By: #### L AB17, LAB46, LAB99 ####Scheduler Conveyor: SHENA GUERIN ([phone])[facility] (SBHLAB)[address] ABDOMEN PELVIS W CONTRAST on 04-04-2024 CT ABDOMEN PELVIS W CONTRAST Normal [facility] CT Abdomen and Pelvis W cont rast Ellen 04-04-2024 1. Mild peripancreat ic fat stranding and edema; correlate with mild acute pancreatitis. 2. The liver demonstrates generalized diminished attenuation as compared to the spleen, compatible with hepatic steatosis. Report Dictated on Electronically Signed By: Doug Parker MD Electronically Signed Date/Time: 04/04/2024 5:54 AM [facility] [employer] Patient Name: RORO CLAIRE : 1985 [...] Unremarkable osseous structures. No suspicious osseous lesion. [facility] RADIOLOGY [facility] Doug Parker MD - 04/04/2024 [...] Electronically Signed Date/Time: 04/04/2024 5:54 AM EST [facility] Radiology Study observation (narrative) [facility] CT Abdomen and Pelvis W cont rast IVOrdered By: Doug Parker on 04-04-2024 [facility] [employer] Work Phone: Comprehensive metabolic 1998 panelon 04-04-2024 Albumin [Mass/Vol] 4.3 g/dL 3.5 - 5.0 g/dL [facility] ALP [Catalytic activity/Vol] 183 U/L High 40 - 150 U/L [facility] ALT [Catalytic activity/Vol] 166 U/L High NINF - 40 U/L [facility] Anion gap [Moles/Vol] 14 mmol/L High 3 - 13 mmol/L [facility] AST [Catalytic activity/Vol] 258 U/L High NINF - 34 U/L [facility] Bilirubin [Mass/Vol] 1 mg/dL NINF - 1.2 mg/dL [facility] Calcium [Mass/Vol] 9.3 mg/dL 8.4 - 10. 2 mg/dL [facility] Chloride [Moles/Vol] 102 mmol/L 98 - 10 7 mmol/L [facility] CO2 [Moles/Vol] 21 mmol/L Low 22 - 29 mmol/L [facility] Creatinine [Mass/Vol] 0.72 mg/dL 0.72 - 1.25 mg/dL [facility] GFR/1.73 sq M.predicted (S/P/Bld) [Vol rate/Area] - PINF [facility] Comment on above: Calculation based on the Chronic Kidney Disease Epidemiology Collaboration (CKD-EPI) equation refit without adjustment for race Glucose [Mass/Vol] 150 mg/dL High 74 - 100 mg/dL [facility] Potassium [Moles/Vol] 3.5 mmol/L 3.5 - 5.1 mmol/L [facility] Comment on above: Plasma potassium víctor ues may be up to 0.5 mmol/L lower than serum values. Protein [Mass/Vol] 8 g/dL 6.4 - 8.3 g/dL [facility] Sodium [Moles/Vol] 137 mmol/L 136 - 145 mmol/L [facility] Urea nitrogen [Mass/Vol] 4 mg/dL Low 8 - 21 mg/dL [facility] Health Consulton 04-04-2024 Consult Normal [facility] Consult Normal [facility] DRUGS OF ABUSEon 04-04-2024 AMPHETAMINE SCREEN Positive Normal [facility] Comment on above: Performed By: #### L [id number] ####Scheduler Conveyor: SHENA GUERIN ([id number])[facility] (SBHLAB)[address] BARBITURATES SCREEN Negative Normal [facility] Comment on above: Performed By: #### L [id number] ####Scheduler Conveyor: SHENA GUERIN ([id number])[facility] BENZODIAZEPINE SCREEN Negative [facility] Comment on above: Performed By: #### L [id number] ####Scheduler Conveyor: SHENA GUERIN ([id number])[facility] (SBHLAB)[address] COCAINE METAB. SCREEN Negative Normal [facility] Comment on above: Performed By: #### L [id number] ####Scheduler Conveyor: SHENA GUERIN ([id number])[facility] ([facility])[address] [place] [address] FENTANYL SCREEN, UR QUAL Negative Normal [facility] Comment on above: Result Comment: PIEDAD [...] under separate order. Performed By: #### L [id number] ####Scheduler Conveyor: SHENA GUERIN ([id number])[facility] [place] (SBHLAB)[address] METHADONE SCREEN Negative Normal [facility] Comment on above: Performed By: #### L [id number] ####Scheduler Conveyor: SHENA CHAMPAGNEBETTY ([phone])[facility] [place] (SB[facility]AB)[address] OPIATES SCREEN Positive Normal [facility] Comment on above: Performed By: #### L [id number] ####Scheduler Conveyor: SHENA CHAMPAGNEBETTY ([phone])[facility] [place] (SB[facility]AB)[address] OXYCODONE SCREEN Negative Normal [facility] Comment on above: Performed By: #### L [id number] ####Scheduler Conveyor: SHENA GUERIN ([id number])[facility] [place] (SBHLAB)[address] PHENCYCLIDINE SCREEN Negative Normal [facility] Comment on above: Performed By: #### L [id number] ####Scheduler Conveyor: SHENA CHAMPAGNEBETTY ([id number])[facility] (SBHLAB)[address] ECG 12-LEADon 04-04-2024 ECG 12-LEAD IMPRESSION: Sinus rhythm LVH by voltage No change compared to previous ekg Electronically Signed On 04-04-2024 14:20:40 EST by Grady [facility] ECG 12-LEAD IMPRESSION: Sinus tachycardia No change compared to previous ekg Electronically Signed On 04-04-2024 08:54:10 EST by Grady [facility] ED Provider Noteon ED Provider Note Normal [facility] ETHANOLon 04-04-2024 ETHANOL IN SER/PLAS 222 mg/dL High <10 [facility] Comment on above: Result Comment: This sample may have been collected by using an alcohol pad to swab the skin. Ethanol-containing antiseptics before venipuncture may not be causes of spurious or false positive results of alcohol measurement at least when ideal venipunctures can be performed. However, under non-ideal collection conditions, alcohol contamination is a possibility. Results to be correlated clinically.ORDER COMMENTS:VOICE PATHOLOGIST depression is seen >100 mg/dL.NOTE: This result is for medical treatment only. Analysis performed using non-forensic procedures. Performed By: #### L AB17, LAB46, LAB99 ####Scheduler Conveyor: SHENA GUERIN ([id number])[facility] (SBHLAB)[address] [place] [address] ETHYL GLUCURONIDE SCREEN, UR INEon 04-04-2024 ETHYL GLUCURONIDE, URINE Positive Normal Negative [facility] Comment on above: Result [...] been determined by the clinical laboratories of [facility]. Performed By: #### L [id number] ####Scheduler Conveyor: JUDITH MARKHAM ([id number])[facility] (SACLAB)[address] [place] [address] Ethanol (Bld) [Mass/Vol]on 0 04-04-2024 Ethanol [Mass/Vol] 222 mg/dL High NINF - 10 mg/dL [facility] Comment on above: This sample may [...] Interpretation and review of laboratory results Abnormal [facility] VOICE PATHOLOGIST depression is se en >100 mg/dL. NOTE: This result is for medical treatment only. Analysis performed using non-forensic procedures. [facility] LACTIC ACID WITH REFLEXon Lactate [Moles/Vol] 2.0 mmol/L Normal 0.5-2.2 [facility] Comment on above: Performed By: #### L [id number] ####Scheduler Conveyor: SHENA GUERIN ([id number])[facility] ([facility])[address] Lactate [Moles/Vol] 3.0 mmol/L High 0.5-2.2 [facility] Comment on above: Performed By: #### L [id number] ####Scheduler Conveyor: SHENA GUERIN ([id number])[facility] ([facility])[address] [place] [address] Lactate [Moles/Vol] 2.6 mmol/L High 0.5-2.2 [facility] Comment on above: Performed By: #### L [id number] ####Scheduler Conveyor: SHENA GUERIN ([id number])[facility] ([facility])[address] [place] [address] LIPASEon 04-04-2024 Lipase [Catalytic activity/Vol] 101 U/L High <55 [facility] Comment on above: Performed By: #### L AB17, LAB46, LAB99 ####Scheduler Conveyor: SHENA GUERIN ([id number])[facility] ([facility])[address] [place] [address] Laboratory - Chemistry and C hemistry - challengeon 04-04-2024 Lactate [Moles/Vol] 2 mmol/L 0.5 - 2. 2 mmol/L [facility] Lactate [Moles/Vol] 3 mmol/L High 0.5 - 2. 2 mmol/L [facility] Lactate [Moles/Vol] 2.6 mmol/L High 0.5 - 2. 2 mmol/L [facility] Lipase [Catalytic activity/Vol] 101 U/L High NINF - 55 U/L [facility] Laboratory - Coagulationon 0 04-04-2024 aPTT Coag (PPP) [Time] 27.1 s 20.0 - 30.5 s [facility] INR Coag (PPP) [Relative time] 1.1 {INR} 0.9 - 1.1 [facility] Comment on above: Recommended Anticoag ulant [...] 12.8 s High 9.0 - 12.0 s [facility] Laboratory - Drug toxicology on 04-04-2024 Amphetamines Screen method >1000 ng/mL Ql (U) Positive [facility] Barbiturates Screen method >200 ng/mL Ql (U) Negative [facility] Benzodiazepines Ql (U) Negative [facility] Methadone Screen Ql (U) Negative [facility] Opiates Screen Ql (U) Positive [facility] oxyCODONE Ql (U) Negative [facility] Phencyclidine Ql (U) Negative [facility] No Panel Informationon 04-04 P Lyman 51 degrees [facility] NE Interval 158 ms [facility] QRS Lyman -6 degrees [facility] QRSD Interval 91 ms [facility] QT Interval 387 ms [facility] QTC Interval 447 ms [facility] T Wave Lyman 6 degrees [facility] Sinus rhythm LVH by voltage No change compared to previous ekg Electronically Signed On 04-04-2024 14:20:40 EST by Grady Dial M D - 04/04/2024 IMPRESSION: Sinus rhythm LVH by voltage No change compared to previous ekg Electronically Signed On 04-04-2024 14:20:40 EST by Grady Julien [facility] Interpretation and review of laboratory results Normal [facility] COCAINE METAB. SCREEN Negative [facility] FENTANYL SCREEN, UR QUAL Negative [facility] The expected value f or all [...] is needed, request confirmation under separate order. [employer] Interpretation and review of laboratory results Abnormal [facility] Interpretation and review of laboratory results [facility] Sinus tachycardia No change compared to previous ekg Electronically Signed On 04-04-2024 08:54:10 EST by Grady Dial M D - 04/04/2024 IMPRESSION: Sinus tachycardia No change compared to previous ekg Electronically Signed On 04-04-2024 08:54:10 EST by Grady Julien [facility] [employer] Interpretation and review of laboratory results Abnormal [employer] Interpretation and review of laboratory results Abnormal [employer] No Panel InformationOrdered By: Christiano Hadley on 04-04-2024 ETHYL GLUCURONIDE, URINE Positive Negative [facility] Ethyl Glucuronide castillo s been screened by [...] been determined by the clinical laboratories of [facility]. [employer] No Panel InformationOrdered By: Grady Julien on 04-04-2024 P Lyman 27 degrees [facility] Work Phone: NE Interval 163 ms [facility] Work Phone: QRS Lyman 54 degrees [facility] Work Phone: QRSD Interval 93 ms [facility] Work Phone: QT Interval 333 ms [facility] Work Phone: QTC Interval 467 ms [facility] [employer] Work Phone: T Wave Lyman 16 degrees [facility] [employer] Work Phone: [facility] [employer] Work Phone: PROTIME AND APTTon aPTT Coag (Bld) [Time] 27.1 s Normal 20.0-30.5 [facility] Comment on above: Performed By: #### L [id number] ####Scheduler Conveyor: SHENA GUERIN ([id number])[facility] ([facility])[address] INR Coag (PPP) [Relative time] 1.1 {INR} Normal 0.9-1.1 [facility] Comment on above: Result Comment: Mason [...] prevent Myocardial Infarction Performed By: #### L [id number] ####Scheduler Conveyor: SHENA GUERIN ([id number])[facility]ENT[facility]yler [facility] ([facility])[address] [place] [address] PT Coag (PPP) [Time] 12.8 s High 9.0-12.0 [facility] Comment on above: Performed By: #### L [id number] ####Scheduler Conveyor: SHENA GUERIN ([id number])[facility] ([facility])[address] [place] [address] Progress Noteon 04-04-2024 Progress Note Normal [facility] Progress Note Normal [facility] Urinalysis complete panel (U )on 04-04-2024 Bilirubin Ql (U) Negative Negative mg/dL [facility] Clarity (U) Clear Clear [facility] Color (U) Light Yellow Lt. Yellow [facility] Glucose Ql (U) Normal Normal (<70) mg/dL [facility] Hemoglobin Ql (U) Negative Negative mg/dL [facility] Interpretation and review of laboratory results Normal [facility] Ketones (U) [Mass/Vol] Negative Negat chan mg/dL [facility] Leukocyte esterase Test strip Ql (U) Negative Negative Teofilo/uL [facility] Nitrite Ql (U) Negative Negative [facility] pH (U) 6.0 [pH] 5.0 - 8.0 pH [facility] Protein (U) [Mass/Vol] Negative Negat chan mg/dL [facility] Specific gravity (U) [Rel density] 1.008 1.005 - 1.030 [facility] Urobilinogen (U) [Mass/Vol] Normal Normal (0-1) mg/dL [facility] Vital signson 04-04-2024 Heart rate 80 /min bpm [facility] Vital signsOrdered By: Gato Julien on 04-04-2024 Heart rate 118 /min bpm [facility] Work Phone: Progress Noteon 03-30-2024 Progress Note Normal [facility] 36on 03-29-2024 36 LVM for patient, advising ok for virtual per Dr. Escobar Appt has been updated to virtual Normal [facility] 36 Is it ok to move patient to a virtual appointment? Normal [facility] 36 Normal [facility] 36on 03-23-2024 36 Normal [facility] CBC (HEMOGRAM)on 03-22-2024 Erythrocyte distribution width (RBC) [Ratio] 14.9 % Normal 11.5-15.0 [facility] Comment on above: Performed By: #### L [id number] ####Scheduler Conveyor: SHENA GUERIN ([id number])[facility] ([facility])[address] [place] [address] Hematocrit (Bld) [Volume fraction] 45.4 % Normal 40.0-52.0 [facility] Comment on above: Performed By: #### L [id number] ####Scheduler Conveyor: SHENA [id number])[facility] (SBHLAB)[address] Hemoglobin (Bld) [Mass/Vol] 15.3 g/dL Normal 13.0-18.0 [facility] Comment on above: Performed By: #### L [id number] ####Scheduler Conveyor: SHENA GUERIN ([id number])[facility] CENTERKyler [facility]ELUNIVERSITY [facility]OSPITALSTu (SBHLAB)[address] MCH (RBC) [Entitic mass] 29.4 pg Normal 26.0-34.0 [facility] Comment on above: Performed By: #### L [id number] ####Scheduler Conveyor: SHENA GUERIN ([id number])[facility] CENTERKyler [place] ([facility])[address] MCHC 33.7 % Normal 30.5-36.0 [facility] Comment on above: Performed By: #### L [id number] ####Scheduler Conveyor: SHENA GUERIN ([id number])[facility] CENTERKyler [place] (SBHLAB)[address] MCV (RBC) [Entitic vol] 87.1 fL Normal 77.0-99.0 [facility] Comment on above: Performed By: #### L [id number] ####Scheduler Conveyor: SHENA GUERIN ([id number])[facility] CENTERKyler [facility] (SBAB)[address] [place] [address] Platelet mean volume (Bld) [Entitic vol] 9.7 fL Normal 9.0-12.7 [facility] Comment on above: Performed By: #### L [id number] ####Scheduler Conveyor: SHENA GUERIN ([id number])[facility] CENTERKyler [place] (SBHLAB)[address] [place] [address] [place] Platelets (Bld) [#/Vol] 286 10*3/uL Normal 140-440 [facility] Comment on above: Performed By: #### L [id number] ####Scheduler Conveyor: SHENA GUERIN ([id number])[facility] (SBHLAB)[address] RBC (Bld) [#/Vol] 5.21 10*6/uL Normal 4.40-5.90 [facility] Comment on above: Performed By: #### L [id number] ####Scheduler Conveyor: SHENA GUERIN ([id number])[facility] CENTERKyler [place] (SBHLAB)[address] WBC (Bld) [#/Vol] 6.6 10*3/uL Normal 3.6-10.7 [facility] Comment on above: Performed By: #### L [id number] ####Scheduler Conveyor: SHENA GUERIN ([id number])[facility] CENTERKyler [facility] (SBHLAB)[address] [place] [address] CBC panel Auto (Bld)on 03-22 Erythrocyte distribution width (RBC) [Ratio] 14.9 % 11.5 - 15.0 % [facility] Hematocrit (Bld) [Volume fraction] 45.4 % 40.0 - 52.0 % [facility] Hemoglobin (Bld) [Mass/Vol] 15.3 g/dL 13.0 - 18.0 g/dL [facility] Interpretation and review of laboratory results Normal [facility] MCH (RBC) [Entitic mass] 29.4 pg 26.0 - 34.0 pg [facility] MCHC (RBC) [Mass/Vol] 33.7 % 30.5 - 36.0 % [facility] MCV (RBC) [Entitic vol] 87.1 fL 77.0 - 99.0 fL [facility] Platelet mean volume (Bld) [Entitic vol] 9.7 fL 9.0 - 12.7 fL [facility] Platelets (Bld) [#/Vol] 286 10*3/uL 140 - 440 10*3/uL [facility] RBC (Bld) [#/Vol] 5.21 10*6/uL 4.40 - 5.9 0 10*6/uL [facility] WBC (Bld) [#/Vol] 6.6 10*3/uL 3.6 - 10.7 10*3/uL [facility] COMPREHENSIVE METABOLIC PANE Rylan 02-11-2025 Albumin [Mass/Vol] 4.5 g/dL Normal 3.5-5.0 [facility] Comment on above: Performed By: #### L AB99, LAB17 ####Scheduler Conveyor: SHENA GUERIN ([id number])[facility] [place] (SBHLAB)[address] ALP [Catalytic activity/Vol] 167 U/L High 40-150 [facility] Comment on above: Performed By: #### L AB99, LAB17 ####Scheduler Conveyor: SHENA GUERIN ([id number])[facility] [place] (SBHLAB)[address] [place] [address] [place] ALT [Catalytic activity/Vol] 191 U/L High <40 [facility] Comment on above: Performed By: #### L CLARISSE, LAB17 ####Scheduler Conveyor: SHENA GUERIN ([id number])[facility] [place] (SBHLAB)[address] [place] [address] [place] Anion gap [Moles/Vol] 17 mmol/L High 3-13 [facility] Comment on above: Performed By: #### L ABIsai, LAB17 ####Scheduler Conveyor: SHENA GUERIN ([id number])[facility] [place] (SBHLAB)[address] [place] [address] [place] AST [Catalytic activity/Vol] 260 U/L High <34 [facility] Comment on above: Performed By: #### L ABIsai, LAB17 ####Scheduler Conveyor: SHENA GUERIN ([id number])[facility] [place] (SBHLAB)[address] [place] [address] [place] Bilirubin [Mass/Vol] 0.9 mg/dL Normal <1.2 [facility] Comment on above: Performed By: #### L AB99, LAB17 ####Scheduler Conveyor: SHENA GUERIN ([id number])[facility] [place] (SBHLAB)[address] [place] [address] [place] Calcium [Mass/Vol] 9.6 mg/dL Normal 8.4-10.2 [facility] Comment on above: Performed By: #### L AB99, LAB17 ####Scheduler Conveyor: SHENA GUERIN ([id number])[facility] CENTERKyler [facility] (SBHLAB)[address] Chloride [Moles/Vol] 103 mmol/L Normal 98-107 [facility] Comment on above: Performed By: #### L AB99, LAB17 ####Scheduler Conveyor: SHENA GUERIN ([id number])[facility] CENTERA BARBUNIVERSITY OF NEW MEXICO HOSPITALSN (SBHLAB)[address] CO2 [Moles/Vol] 19 mmol/L Low 22-29 [facility] Comment on above: Performed By: #### L AB99, LAB17 ####Scheduler Conveyor: SHENA GUERIN ([id number])[facility] CENTERKyler [facility]ELUNIVERSITY [facility]OSPITALSN (SBHLAB)[address] Creatinine [Mass/Vol] 0.73 mg/dL Normal 0.72-1.25 [facility] Comment on above: Performed By: #### L AB99, LAB17 ####Scheduler Conveyor: SHENA GUERIN ([id number])[facility]ENTERA [facility] (SBHLAB)[address] GLOMERULAR FILTRATION RATE ML/MIN/1.73 SQ M.PREDICTED >90.0 Normal >60.0 [facility] Comment on above: Result Comment: Calc ulation based on the Chronic Kidney Disease Epidemiology Collaboration (CKD-EPI) equation refit without adjustment for race Performed By: #### L AB99, LAB17 ####Scheduler Conveyor: SHENA GUERIN ([id number])[facility] [place] (SBHLAB)[address] [place] [address] [place] Glucose [Mass/Vol] 114 mg/dL High 74-100 [facility] Comment on above: Performed By: #### L AB99, LAB17 ####Scheduler Conveyor: SHENA GUERIN ([id number])[facility]ENTERA BARBCAP[facility] (SBHLAB)[address] [place] [address] [place] Potassium [Moles/Vol] 4.0 mmol/L Normal 3.5-5.1 [facility] Comment on above: Result Comment: [facility] potassium values may be up to 0.5 mmol/L lower than serum values. Performed By: #### L AB99, LAB17 ####Scheduler Conveyor: SHENA GUERIN ([id number])[facility]A [facility] (SBHLAB)[address] Protein [Mass/Vol] 8.5 g/dL High 6.4-8.3 [facility] Comment on above: Performed By: #### L AB99, LAB17 ####Scheduler Conveyor: SHENA GUERIN ([id number])[facility] (SBHLAB)[address] Sodium [Moles/Vol] 139 mmol/L Normal 136-145 [facility] Comment on above: Performed By: #### L AB99, LAB17 ####Scheduler Conveyor: SHENA GUERIN ([id number])[facility] (SBHLAB)[address] Urea nitrogen [Mass/Vol] 3 mg/dL Low 8-21 [facility] Comment on above: Performed By: #### L AB99, LAB17 ####Scheduler Conveyor: SHENA GUERIN ([id number])[facility] (SBHLAB)[address] Comprehensive metabolic 1998 panelon 03-22-2024 Albumin [Mass/Vol] 4.5 g/dL 3.5 - 5.0 g/dL [facility] ALP [Catalytic activity/Vol] 167 U/L High 40 - 150 U/L [facility] ALT [Catalytic activity/Vol] 191 U/L High NINF - 40 U/L [facility] Anion gap [Moles/Vol] 17 mmol/L High 3 - 13 mmol/L [facility] AST [Catalytic activity/Vol] 260 U/L High NINF - 34 U/L [facility] Bilirubin [Mass/Vol] 0.9 mg/dL NINF - 1.2 mg/dL [facility] Calcium [Mass/Vol] 9.6 mg/dL 8.4 - 10. 2 mg/dL [facility] Chloride [Moles/Vol] 103 mmol/L 98 - 10 7 mmol/L [facility] CO2 [Moles/Vol] 19 mmol/L Low 22 - 29 mmol/L [facility] Creatinine [Mass/Vol] 0.73 mg/dL 0.72 - 1.25 mg/dL [facility] GFR/1.73 sq M.predicted (S/P/Bld) [Vol rate/Area] - PINF [facility] Comment on above: Calculation based on the Chronic Kidney Disease Epidemiology Collaboration (CKD-EPI) equation refit without adjustment for race Glucose [Mass/Vol] 114 mg/dL High 74 - 100 mg/dL [facility] Interpretation and review of laboratory results Abnormal [facility] Potassium [Moles/Vol] 4 mmol/L 3.5 - 5.1 mmol/L [facility] Comment on above: Plasma potassium víctor ues may be up to 0.5 mmol/L lower than serum values. Protein [Mass/Vol] 8.5 g/dL High 6.4 - 8.3 g/dL [facility] Sodium [Moles/Vol] 139 mmol/L 136 - 145 mmol/L [facility] Urea nitrogen [Mass/Vol] 3 mg/dL Low 8 - 21 mg/dL [facility] ED Nursing Noteon 03-22-2024 ED Nursing Note Normal [facility] ED Nursing Note Normal [facility] ED Provider Noteon ED Provider Note Normal [facility] LIPASEon 03-22-2024 Lipase [Catalytic activity/Vol] 125 U/L High <55 [facility] Comment on above: Performed By: #### L AB99, LAB17 ####Scheduler Conveyor: SHENA GUERIN ([id number])[facility] ([facility])[address] [place] [address] Laboratory - Chemistry and C hemistry - challengeon 03-22-2024 Lipase [Catalytic activity/Vol] 125 U/L High NINF - 55 U/L [facility] Lipase [Catalytic activity/V ol]on 03-22-2024 Interpretation and review of laboratory results Abnormal [facility] 36on 02-23-2024 36 Patients appointment has been moved to 03/09/24 at 3pm Normal [facility] 36on 02-22-2024 36 Normal [facility] 36 LVM with pnt to call office to get rescheduled from the to the [facility] 36on 02-20-2024 36 Called patient for follow up, voicemail received, message left. Normal [facility] [id number] 02-08-2024 [id number] Normal [facility] [id number] Normal [facility] 94on 02-08-2024 94 Normal [facility] Nursing Noteon 02-08-2024 Nursing Note Normal [facility] Nursing Note Normal [facility] Nursing Note Normal [facility] 30on 02-07-2024 30 Normal [facility] Nursing Noteon 02-07-2024 Nursing Note Normal [facility] Progress Noteon 02-07-2024 Progress Note Normal [facility] Progress Note Normal [facility] 30on 02-06-2024 30 Normal [facility] 30 Pt able to verbalize signs/symptoms of withdrawal . Normal [facility] Consulton 02-06-2024 Consult Normal [facility] Nursing Noteon 02-06-2024 Nursing Note Normal [facility] Nursing Note Normal [facility] Progress Noteon 02-06-2024 Progress Note Normal [facility] Progress Note Normal [facility] Progress Note Normal [facility] [id number] 02-05-2024 [id number] Normal [facility] BASIC METABOLIC PANELon 01-10 Anion gap [Moles/Vol] 10 mmol/L Normal 3-13 [facility] Comment on above: Performed By: #### L AB15 ####Scheduler Conveyor: JUDITH MARKHAM ([id number])[facility] ([facility] [place] [address] Calcium [Mass/Vol] 8.4 mg/dL Normal 8.4-10.2 [facility] Comment on above: Performed By: #### L AB15 ####Scheduler Conveyor: JUDITH MARKHAM ([id number])[facility] ([facility])[address] [place] [address] Chloride [Moles/Vol] 107 mmol/L Normal 98-107 [facility] Comment on above: Performed By: #### L AB15 ####Scheduler Conveyor: JUDITH MARKHAM ([id number])[facility] ([facility])[address] [place] [address] CO2 [Moles/Vol] 23 mmol/L Normal 22-29 [facility] Comment on above: Performed By: #### L AB15 ####Scheduler Conveyor: JUDITH MARKHAM ([id number])[facility])[address] [place] [address] Creatinine [Mass/Vol] 0.64 mg/dL Low 0.72-1.25 [facility] Comment on above: Performed By: #### L AB15 ####Scheduler Conveyor: JUDITH MARKHAM ([id number])[facility] ([facility])[address] [place] [address] GLOMERULAR FILTRATION RATE ML/MIN/1.73 SQ M.PREDICTED >90.0 Normal >60.0 [facility] Comment on above: Result Comment: Calc ulation based on the Chronic Kidney Disease Epidemiology Collaboration (CKD-EPI) equation refit without adjustment for race Performed By: #### L [id number] ####Scheduler Conveyor: JUDITH MARKHAM ([id number])[facility] [place] [address] Glucose [Mass/Vol] 100 mg/dL Normal 74-100 [facility] Comment on above: Performed By: #### L [id number] ####Scheduler Conveyor: JUDITH MARKHAM ([phone])[facility] [place] [address] [place] Potassium [Moles/Vol] 4.3 mmol/L Normal 3.5-5.1 [facility] Comment on above: Result Comment: [facility] potassium values may be up to 0.5 mmol/L lower than serum values. Performed By: #### L [id number] ####Scheduler Conveyor: JUDITH MARKHAM ([phone])[facility])[address] Sodium [Moles/Vol] 140 mmol/L Normal 136-145 [facility] Comment on above: Performed By: #### L [id number] ####Scheduler Conveyor: JUDITH MARKHAM ([id number])[facility] ([facility])[address] [place] [address] Urea nitrogen [Mass/Vol] 4 mg/dL Low 8-21 [facility] Comment on above: Performed By: #### L [id number] ####Scheduler Conveyor: JUDITH MARKHAM ([phone])[facility])[address] [place] [address] Basic metabolic 1998 panelon 02-05-2024 Anion gap [Moles/Vol] 10 mmol/L 3 - 13 mmol/L [facility] Calcium [Mass/Vol] 8.4 mg/dL 8.4 - 10. 2 mg/dL [facility] Chloride [Moles/Vol] 107 mmol/L 98 - 10 7 mmol/L [facility] CO2 [Moles/Vol] 23 mmol/L 22 - 29 mmol/L [facility] Creatinine [Mass/Vol] 0.64 mg/dL Low 0.72 - 1.25 mg/dL [facility] GFR/1.73 sq M.predicted (S/P/Bld) [Vol rate/Area] - PINF [facility] Comment on above: Calculation based on the Chronic Kidney Disease Epidemiology Collaboration (CKD-EPI) equation refit without adjustment for race Glucose [Mass/Vol] 100 mg/dL 74 - 100 mg/dL [facility] Interpretation and review of laboratory results Abnormal [facility] Potassium [Moles/Vol] 4.3 mmol/L 3.5 - 5.1 mmol/L [facility] Comment on above: Plasma potassium víctor ues may be up to 0.5 mmol/L lower than serum values. Sodium [Moles/Vol] 140 mmol/L 136 - 145 mmol/L [facility] Urea nitrogen [Mass/Vol] 4 mg/dL Low 8 - 21 mg/dL [facility] CBC W Auto Differential pane l (Bld)on 02-05-2024 Basophils (Bld) [#/Vol] 0.1 10*3/uL 0.0 - 0.2 10*3/uL [facility] Basophils/100 WBC (Bld) 1 % 0.0 - 2.0 % [facility] Eosinophils (Bld) [#/Vol] 0.1 10*3/uL 0.0 - 0.5 10*3/uL [facility] Eosinophils/100 WBC (Bld) 1 % 0.0 - 6.0 % [facility] Erythrocyte distribution width (RBC) [Ratio] 13.7 % 11.5 - 15.0 % [facility] Hematocrit (Bld) [Volume fraction] 39.1 % Low 40.0 - 52.0 % [facility] Hemoglobin (Bld) [Mass/Vol] 13.1 g/dL 13.0 - 18.0 g/dL [facility] Immature granulocytes (Bld) [#/Vol] 0 10*3/uL NINF - 0.1 10*3/uL [facility] Immature granulocytes/100 WBC (Bld) 0.2 % 0.0 - 2.0 % [facility] Interpretation and review of laboratory results Abnormal [facility] Lymphocytes (Bld) [#/Vol] 1.8 10*3/uL 1.0 - 4.3 10*3/uL [facility] Lymphocytes/100 WBC (Bld) 35.1 % 15.0 - 45.0 % [facility] MCH (RBC) [Entitic mass] 30.2 pg 26.0 - 34.0 pg [facility] MCHC (RBC) [Mass/Vol] 33.5 % 30.5 - 36.0 % [facility] MCV (RBC) [Entitic vol] 90.1 fL 77.0 - 99.0 fL [facility] Monocytes (Bld) [#/Vol] 0.4 10*3/uL 0.0 - 0.9 10*3/uL [facility] Monocytes/100 WBC (Bld) 7.4 % 5.0 - 13.0 % [facility] Neutrophils (Bld) [#/Vol] 2.8 10*3/uL 1.8 - 7.5 10*3/uL [facility] Neutrophils/100 WBC (Bld) 55.3 % 38.0 - 82.0 % [facility] Nucleated RBC/100 WBC (Bld) [Ratio] 0 % [facility] Platelet mean volume (Bld) [Entitic vol] 9.9 fL 9.0 - 12.7 fL [facility] Platelets (Bld) [#/Vol] 282 10*3/uL 140 - 440 10*3/uL [facility] RBC (Bld) [#/Vol] 4.34 10*6/uL Low 4.40 - 5.9 0 10*6/uL [facility] WBC (Bld) [#/Vol] 5 10*3/uL 3.6 - 10.7 10*3/uL [facility] CBC WITH AUTO DIFFERENTIALon 02-05-2024 Basophils (Bld) [#/Vol] 0.1 10*3/uL Normal 0.0-0.2 [facility] Comment on above: Performed By: #### L [id number] ####Scheduler Conveyor: JUDITH MARKHAM ([id number])[facility] ([facility])[address] [place] [address] Basophils/100 WBC (Bld) 1.0 % Normal 0.0-2.0 [facility] Comment on above: Performed By: #### L [id number] ####Scheduler Conveyor: JUDITH MARKHAM ([id number])[facility] ([facility])[address] [place] [address] [place] Eosinophils (Bld) [#/Vol] 0.1 10*3/uL Normal 0.0-0.5 [facility] Comment on above: Performed By: #### L [id number] ####Scheduler Conveyor: JUDITH MARKHAM ([id number])[facility] ([facility])[address] [place] [address] [place] Eosinophils/100 WBC (Bld) 1.0 % Normal 0.0-6.0 [facility] Comment on above: Performed By: #### L [id number] ####Scheduler Conveyor: JUDITH MARKHAM ([id number])[facility] ([facility])[address] [place] [place] [address] [place] Erythrocyte distribution width (RBC) [Ratio] 13.7 % Normal 11.5-15.0 [facility] Comment on above: Performed By: #### L [id number] ####Scheduler Conveyor: JUDITH [id number])[facility])[address] [place] [address] Hematocrit (Bld) [Volume fraction] 39.1 % Low 40.0-52.0 [facility] Comment on above: Performed By: #### L [id number] ####Scheduler Conveyor: JUDITH MARKHAM ([phone])[facility])[address] [place] [address] Hemoglobin (Bld) [Mass/Vol] 13.1 g/dL Normal 13.0-18.0 [facility] Comment on above: Performed By: #### L [id number] ####Scheduler Conveyor: JUDITH MARKHAM ([phone])[address] IMMATURE GRANS % 0.2 % Normal 0.0-2.0 [facility] Comment on above: Performed By: #### L [id number] ####Scheduler Conveyor: JUDITH MARKHAM ([id number])[facility])[address] [place] [address] IMMATURE GRANS ABSOLUTE 0.0 10*3/uL Normal <0.1 [facility] Comment on above: Performed By: #### L [id number] ####Scheduler Conveyor: JUDITH MARKHAM ([id number])[facility])[address] [place] [address] Lymphocytes (Bld) [#/Vol] 1.8 10*3/uL Normal 1.0-4.3 [facility] Comment on above: Performed By: #### L [id number] ####Scheduler Conveyor: JUDITH MARKHAM ([phone])[facility])[address] [place] [address] Lymphocytes/100 WBC (Bld) 35.1 % Normal 15.0-45.0 [facility] Comment on above: Performed By: #### L [id number] ####Scheduler Conveyor: JUDITH MARKHAM ([id number])[facility])[address] [place] [address] MCH (RBC) [Entitic mass] 30.2 pg Normal 26.0-34.0 [facility] Comment on above: Performed By: #### L [id number] ####Scheduler Conveyor: JUDITH MARKHAM ([phone])[facility])[address] [place] [address] MCHC 33.5 % Normal 30.5-36.0 [facility] Comment on above: Performed By: #### L [id number] ####Scheduler Conveyor: JUDITH MARKHAM ([phone])[facility])[address] [place] [address] MCV (RBC) [Entitic vol] 90.1 fL Normal 77.0-99.0 [facility] Comment on above: Performed By: #### L [id number] ####Scheduler Conveyor: JUDITH MARKHAM ([id number])[facility])[address] [place] [address] Monocytes (Bld) [#/Vol] 0.4 10*3/uL Normal 0.0-0.9 [facility] Comment on above: Performed By: #### L [id number] ####Scheduler Conveyor: JUDITH MARKHAM ([phone])[facility])[address] [place] [address] Monocytes/100 WBC (Bld) 7.4 % Normal 5.0-13.0 [facility] Comment on above: Performed By: #### L [id number] ####Scheduler Conveyor: JUDITH MARKHAM ([id number])[facility])[address] [place] [address] NEUTROPHILS ABSOLUTE 2.8 10*3/uL Normal 1.8-7.5 [facility] Comment on above: Performed By: #### L [id number] ####Scheduler Conveyor: JUDITH MARKHAM ([id number])[address] Neutrophils/100 WBC (Bld) 55.3 % Normal 38.0-82.0 [facility] Comment on above: Performed By: #### L [id number] ####Scheduler Conveyor: JUDITH MARKHAM ([id number])[facility] ([facility])[address] [place] [address] NRBC 0.0 /100 WBCs Normal 0.0-2.0 [facility] Comment on above: Performed By: #### L [id number] ####Scheduler Conveyor: JUDITH MARKHAM ([phone])[facility] ([facility])[address] [place] [address] Platelet mean volume (Bld) [Entitic vol] 9.9 fL Normal 9.0-12.7 [facility] Comment on above: Performed By: #### L [id number] ####Scheduler Conveyor: JUDITH MARKHAM ([id number])[facility])[address] [place] [address] Platelets (Bld) [#/Vol] 282 10*3/uL Normal 140-440 [facility] Comment on above: Performed By: #### L [id number] ####Scheduler Conveyor: JUDITH MARKHAM ([phone])[facility] ([facility])[address] [place] [address] RBC (Bld) [#/Vol] 4.34 10*6/uL Low 4.40-5.90 [facility] Comment on above: Performed By: #### L [id number] ####Scheduler Conveyor: JUDITH MARKHAM ([phone])[facility])[address] [place] [address] WBC (Bld) [#/Vol] 5.0 10*3/uL Normal 3.6-10.7 [facility] Comment on above: Performed By: #### L [id number] ####Scheduler Conveyor: JUDITH MARKHAM ([id number])[facility])[address] [place] [address] Consulton 02-05-2024 Consult Normal [facility] ED Nursing Noteon 02-05-2024 ED Nursing Note Transport here to ke patient to Detox 4E, RN called for protective services. Normal [facility] ED Nursing Note Report given to RN o n 4E room 410. RN stated to leave left AC IV in place. Pt put in for transport Normal [facility] ED Nursing Note Protective services at bedside with patient for belongings check and wanding. Normal [facility] ED Nursing Note RN changed patient i nto 2 gowns and socks, belongings placed in 1 bag for officers to do belongings check. Patient read and signed rules of detox. Normal [facility] Nursing Noteon 02-05-2024 Nursing Note Pt medicated with vistaril for anxiety. 2209- Vistaril effective for anxiety, pt asleep at this time. Normal [facility] Nursing Note Pt asleep at this time. Normal [facility] Nursing Note Normal [facility] Nursing Note Normal [facility] BASIC METABOLIC PANELon - Anion gap [Moles/Vol] 11 mmol/L Normal 3-13 [facility] Comment on above: Order Comment: Repea t 30min after fluids Performed By: #### L AB46, LAB15 ####Scheduler Conveyor: JUDITH MARKHAM ([id number])[address] Calcium [Mass/Vol] 8.3 mg/dL Low 8.4-10.2 [facility] Comment on above: Order Comment: Repea t 30min after fluids Performed By: #### L AB46, LAB15 ####Scheduler Conveyor: JUDITH MARKHAM ([id number])[address] Chloride [Moles/Vol] 109 mmol/L High 98-107 [facility] Comment on above: Order Comment: Repea t 30min after fluids Performed By: #### L AB46, LAB15 ####Scheduler Conveyor: JUDITH MARKHAM ([phone])[address] CO2 [Moles/Vol] 24 mmol/L Normal 22-29 [facility] Comment on above: Order Comment: Repea t 30min after fluids Performed By: #### L AB46, LAB15 ####Scheduler Conveyor: JUDITH MARKHAM ([id number])[facility])[address] [place] [address] Creatinine [Mass/Vol] 0.67 mg/dL Low 0.72-1.25 [facility] Comment on above: Order Comment: Repea t 30min after fluids Performed By: #### L AB46, LAB15 ####Scheduler Conveyor: JUDITH MARKHAM ([phone])[facility] ([facility])[address] [place] [address] GLOMERULAR FILTRATION RATE ML/MIN/1.73 SQ M.PREDICTED >90.0 Normal >60.0 [facility] Comment on above: Order Comment: Repea t 30min after fluids Result Comment: Calc ulation based on the Chronic Kidney Disease Epidemiology Collaboration (CKD-EPI) equation refit without adjustment for race Performed By: #### L AB46, LAB15 ####Scheduler Conveyor: JUDITH MARKHAM ([phone])[facility])[address] [place] [address] Glucose [Mass/Vol] 115 mg/dL High 74-100 [facility] Comment on above: Order Comment: Repea t 30min after fluids Performed By: #### L AB46, LAB15 ####Scheduler Conveyor: JUDITH MARKHAM ([id number])[address] Potassium [Moles/Vol] 4.1 mmol/L Normal 3.5-5.1 [facility] Comment on above: Order Comment: Repea t 30min after fluids Result Comment: [facility] potassium values may be up to 0.5 mmol/L lower than serum values. Performed By: #### L AB46, LAB15 ####Scheduler Conveyor: JUDITH MARKHAM ([phone])[facility])[address] [place] [address] Sodium [Moles/Vol] 144 mmol/L Normal 136-145 [facility] Comment on above: Order Comment: Repea t 30min after fluids Performed By: #### L AB46, LAB15 ####Scheduler Conveyor: JUDITH MARKHAM ([phone])[facility])[address] [place] [address] Urea nitrogen [Mass/Vol] 4 mg/dL Low 8-21 [facility] Comment on above: Order Comment: Repea t 30min after fluids Performed By: #### L AB46, LAB15 ####Scheduler Conveyor: JUDITH MARKHAM ([phone])[facility])[address] [place] [address] BLOOD GAS, VENOUSon 02-04-20 Base excess Calc (BldV) [Moles/Vol] -1.9000 mmol/L Normal -3.0-3.0 [facility] Comment on above: Performed By: #### L [id number] ####Scheduler Conveyor: JUDITH MARKHAM ([phone])[facility])[address] [place] [address] CO2 [Moles/Vol] 24.2 mmol/L Normal 24.0-28.0 [facility] Comment on above: Performed By: #### L AB79 ####Scheduler Conveyor: JUIDTH MARKHAM ([phone])[facility])[address] [place] [address] HCO3 (Bld) [Moles/Vol] 23.0 mmol/L Normal 23.0-27.0 [facility] Comment on above: Performed By: #### L AB79 ####Scheduler Conveyor: JUDITH MARKHAM ([phone])[facility])[address] [place] [address] Hemoglobin (Bld) [Mass/Vol] 15.0 g/dL Normal Screen only [facility] Comment on above: Performed By: #### L AB79 ####Scheduler Conveyor: JUDITH MARKHAM ([phone])[facility])[address] [place] [address] OXYGEN (MM HG) IN VENOUS BLOOD 50.3 mm Hg Normal [facility] Comment on above: Performed By: #### L AB79 ####Scheduler Conveyor: JUDITH MARKHAM ([id number])[facility] ([address] OXYGEN SATURATION (%) IN VENOUS BLOOD 76.9 % Normal [facility] Comment on above: Performed By: #### L AB79 ####Scheduler Conveyor: JUDITH MARKHAM ([id number])[facility])[address] [place] [address] PCO2, LYRIC 39.7 mm Hg Low 40.0-55.0 [facility] Comment on above: Performed By: #### L AB79 ####Scheduler Conveyor: JUDITH MARKHAM ([phone])[facility])[address] [place] [address] PH VENOUS 7.380 Normal 7.330-7.430 [facility] Comment on above: Performed By: #### L AB79 ####Scheduler Conveyor: JUDITH MARKHAM ([phone])[address] SOURCE OF OXYGEN Room Air Normal [facility] Comment on above: Result Comment: PIEDAD Echeverria COMMENTS:Repeat 30min after fluidsAssessment of oxygenation is best done with an arterial blood gas determination. Reference ranges for pO2, bicarbonate, and base excess are for mixed venous blood. Specimens drawn from a peripheral vein will often have higher values. Performed By: #### L AB79 ####Scheduler Conveyor: JUDITH MARKHAM ([phone])[address] Base excess Calc (BldV) [Moles/Vol] -12.41324 mmol/L Low -3.0-3.0 [facility] Comment on above: Performed By: #### L AB79 ####Scheduler Conveyor: JUDITH MARKHAM ([phone])[facility])[address] [place] [address] CO2 [Moles/Vol] 17.1 mmol/L Low 24.0-28.0 [facility] Comment on above: Performed By: #### L AB79 ####Scheduler Conveyor: JDUITH MARKHAM ([phone])[place] [address] [place] HCO3 (Bld) [Moles/Vol] 15.8 mmol/L Low 23.0-27.0 [facility] Comment on above: Performed By: #### L AB79 ####Scheduler Conveyor: JUDITH MARKHAM ([phone])[facility])[address] [place] [address] Hemoglobin (Bld) [Mass/Vol] 13.5 g/dL Normal Screen only [facility] Comment on above: Performed By: #### L AB79 ####Scheduler Conveyor: JUDITH MARKHAM ([phone])[facility])[address] [place] [address] OXYGEN (MM HG) IN VENOUS BLOOD 131.7 mm Hg Normal [facility] Comment on above: Performed By: #### L AB79 ####Scheduler Conveyor: JUDITH MARKHAM ([phone])[facility])[address] [place] [address] OXYGEN SATURATION (%) IN VENOUS BLOOD 97.4 % Normal [facility] Comment on above: Performed By: #### L AB79 ####Scheduler Conveyor: JUDITH MARKHAM ([phone])[facility])[address] [place] [address] PCO2, LYRIC 42.7 mm Hg Normal 40.0-55.0 [facility] Comment on above: Performed By: #### L AB79 ####Scheduler Conveyor: JUDITH MARKHAM ([phone])[facility])[address] [place] [address] PH VENOUS 7.185 Low 7.330-7.430 [facility] Comment on above: Performed By: #### L AB79 ####Scheduler Conveyor: JUDITH MARKHAM ([id number])[facility])[address] [place] [address] SOURCE OF OXYGEN Room Air Normal [facility] Comment on above: Result Comment: PIEDAD Echeverria COMMENTS:Assessment of oxygenation is best done with an arterial blood gas determination. Reference ranges for pO2, bicarbonate, and base excess are for mixed venous blood. Specimens drawn from a peripheral vein will often have higher values. Performed By: #### L AB79 ####Scheduler Conveyor: JUDITH MARKHAM ([id number])[facility] ([facility] Basic metabolic 1998 panelOr dered By: Zoey Delaney on 02-04-2024 Anion gap [Moles/Vol] 11 mmol/L 3 - 13 mmol/L [facility] Calcium [Mass/Vol] 8.3 mg/dL Low 8.4 - 10. 2 mg/dL [facility] Chloride [Moles/Vol] 109 mmol/L High 98 - 10 7 mmol/L [facility] CO2 [Moles/Vol] 24 mmol/L 22 - 29 mmol/L [facility] Creatinine [Mass/Vol] 0.67 mg/dL Low 0.72 - 1.25 mg/dL [facility] GFR/1.73 sq M.predicted (S/P/Bld) [Vol rate/Area] - PINF [facility] Comment on above: Calculation based on the Chronic Kidney Disease Epidemiology Collaboration (CKD-EPI) equation refit without adjustment for race Glucose [Mass/Vol] 115 mg/dL High 74 - 100 mg/dL [facility] Interpretation and review of laboratory results Abnormal [facility] Potassium [Moles/Vol] 4.1 mmol/L 3.5 - 5.1 mmol/L [facility] Comment on above: Plasma potassium víctor ues may be up to 0.5 mmol/L lower than serum values. Sodium [Moles/Vol] 144 mmol/L 136 - 145 mmol/L [facility] Urea nitrogen [Mass/Vol] 4 mg/dL Low 8 - 21 mg/dL [facility] CBC W Auto Differential pane l (Bld)on 02-04-2024 Basophils (Bld) [#/Vol] 0.1 10*3/uL 0.0 - 0.2 10*3/uL [facility] Basophils/100 WBC (Bld) 1 % 0.0 - 2.0 % [facility] Eosinophils (Bld) [#/Vol] 0.1 10*3/uL 0.0 - 0.5 10*3/uL [facility] Eosinophils/100 WBC (Bld) 0.8 % 0.0 - 6.0 % [facility] Erythrocyte distribution width (RBC) [Ratio] 13.7 % 11.5 - 15.0 % [facility] Hematocrit (Bld) [Volume fraction] 43.7 % 40.0 - 52.0 % [facility] Hemoglobin (Bld) [Mass/Vol] 14.3 g/dL 13.0 - 18.0 g/dL [facility] Immature granulocytes (Bld) [#/Vol] 0 10*3/uL NINF - 0.1 10*3/uL [facility] Immature granulocytes/100 WBC (Bld) 0.2 % 0.0 - 2.0 % [facility] Interpretation and review of laboratory results Abnormal [facility] Lymphocytes (Bld) [#/Vol] 4.7 10*3/uL High 1.0 - 4.3 10*3/uL [facility] Lymphocytes/100 WBC (Bld) 54.6 % High 15.0 - 45.0 % [facility] MCH (RBC) [Entitic mass] 29.7 pg 26.0 - 34.0 pg [facility] MCHC (RBC) [Mass/Vol] 32.7 % 30.5 - 36.0 % [facility] MCV (RBC) [Entitic vol] 90.9 fL 77.0 - 99.0 fL [facility] Monocytes (Bld) [#/Vol] 0.6 10*3/uL 0.0 - 0.9 10*3/uL [facility] Monocytes/100 WBC (Bld) 6.4 % 5.0 - 13.0 % [facility] Neutrophils (Bld) [#/Vol] 3.2 10*3/uL 1.8 - 7.5 10*3/uL [facility] Neutrophils/100 WBC (Bld) 37 % Low 38.0 - 82.0 % [facility] Nucleated RBC/100 WBC (Bld) [Ratio] 0 % [facility] Platelet mean volume (Bld) [Entitic vol] 9.8 fL 9.0 - 12.7 fL [facility] Platelets (Bld) [#/Vol] 377 10*3/uL 140 - 440 10*3/uL [facility] RBC (Bld) [#/Vol] 4.81 10*6/uL 4.40 - 5.9 0 10*6/uL [facility] WBC (Bld) [#/Vol] 8.6 10*3/uL 3.6 - 10.7 10*3/uL [facility] CBC WITH AUTO DIFFERENTIALon 02-04-2024 Basophils (Bld) [#/Vol] 0.1 10*3/uL Normal 0.0-0.2 [facility] Comment on above: Performed By: #### L [id number] ####Scheduler Conveyor: JUDITH MARKHAM ([phone])[facility])[address] [place] [address] Basophils/100 WBC (Bld) 1.0 % Normal 0.0-2.0 [facility] Comment on above: Performed By: #### L [id number] ####Scheduler Conveyor: JUDITH MARKHAM ([phone])[facility])[address] [place] [address] Eosinophils (Bld) [#/Vol] 0.1 10*3/uL Normal 0.0-0.5 [facility] Comment on above: Performed By: #### L [id number] ####Scheduler Conveyor: JUDITH MARKHAM ([phone])[facility])[address] [place] [address] Eosinophils/100 WBC (Bld) 0.8 % Normal 0.0-6.0 [facility] Comment on above: Performed By: #### L [id number] ####Scheduler Conveyor: JUDITH MARKHAM ([phone])[facility])[address] [place] [address] Erythrocyte distribution width (RBC) [Ratio] 13.7 % Normal 11.5-15.0 [facility] Comment on above: Performed By: #### L [id number] ####Scheduler Conveyor: JUDITH MARKHAM ([phone])[facility])[address] [place] [address] Hematocrit (Bld) [Volume fraction] 43.7 % Normal 40.0-52.0 [facility] Comment on above: Performed By: #### L [id number] ####Scheduler Conveyor: JUDITH [id number])[facility])[address] [place] [address] Hemoglobin (Bld) [Mass/Vol] 14.3 g/dL Normal 13.0-18.0 [facility] Comment on above: Performed By: #### L [id number] ####Scheduler Conveyor: JUDITH MARKHAM ([phone])[facility])[address] [place] [address] IMMATURE GRANS % 0.2 % Normal 0.0-2.0 [facility] Comment on above: Performed By: #### L [id number] ####Scheduler Conveyor: JUDITH MARKHAM ([phone])[facility])[address] [place] [address] IMMATURE GRANS ABSOLUTE 0.0 10*3/uL Normal <0.1 [facility] Comment on above: Performed By: #### L [id number] ####Scheduler Conveyor: JUDITH MARKHAM ([phone])[facility])[address] [place] [address] Lymphocytes (Bld) [#/Vol] 4.7 10*3/uL High 1.0-4.3 [facility] Comment on above: Performed By: #### L [id number] ####Scheduler Conveyor: JUDITH MARKHAM ([phone])[facility])[address] [place] [address] Lymphocytes/100 WBC (Bld) 54.6 % High 15.0-45.0 [facility] Comment on above: Performed By: #### L [id number] ####Scheduler Conveyor: JUDITH MARKHAM ([phone])[facility])[address] [place] [address] MCH (RBC) [Entitic mass] 29.7 pg Normal 26.0-34.0 [facility] Comment on above: Performed By: #### L [id number] ####Scheduler Conveyor: JUDITH MARKHAM ([phone])[facility])[address] [place] [address] MCHC 32.7 % Normal 30.5-36.0 [facility] Comment on above: Performed By: #### L [id number] ####Scheduler Conveyor: JUDITH MARKHAM ([phone])[facility])[address] [place] [address] MCV (RBC) [Entitic vol] 90.9 fL Normal 77.0-99.0 [facility] Comment on above: Performed By: #### L [id number] ####Scheduler Conveyor: JUDITH MARKHAM ([phone])[facility])[address] [place] [address] Monocytes (Bld) [#/Vol] 0.6 10*3/uL Normal 0.0-0.9 [facility] Comment on above: Performed By: #### L [id number] ####Scheduler Conveyor: JUDITH MARKHAM ([phone])[facility])[address] [place] [address] Monocytes/100 WBC (Bld) 6.4 % Normal 5.0-13.0 [facility] Comment on above: Performed By: #### L [id number] ####Scheduler Conveyor: JUDITH MARKHAM ([phone])[facility])[address] [place] [address] NEUTROPHILS ABSOLUTE 3.2 10*3/uL Normal 1.8-7.5 [facility] Comment on above: Performed By: #### L [id number] ####Scheduler Conveyor: JUDITH MARKHAM ([phone])[facility])[address] [place] [address] Neutrophils/100 WBC (Bld) 37.0 % Low 38.0-82.0 [facility] Comment on above: Performed By: #### L [id number] ####Scheduler Conveyor: JUDITH MARHKAM ([phone])[facility])[address] [place] [address] NRBC 0.0 /100 WBCs Normal 0.0-2.0 [facility] Comment on above: Performed By: #### L [id number] ####Scheduler Conveyor: JUDITH MARKHAM ([phone])[facility] ([facility])[address] [place] [address] Platelet mean volume (Bld) [Entitic vol] 9.8 fL Normal 9.0-12.7 [facility] Comment on above: Performed By: #### L [id number] ####Scheduler Conveyor: JUDITH MARKHAM ([id number])[facility] ([facility])[address] [place] [address] Platelets (Bld) [#/Vol] 377 10*3/uL Normal 140-440 [facility] Comment on above: Performed By: #### L [id number] ####Scheduler Conveyor: JUDITH MARKHAM ([phone])[facility] ([facility])[address] [place] [address] RBC (Bld) [#/Vol] 4.81 10*6/uL Normal 4.40-5.90 [facility] Comment on above: Performed By: #### L [id number] ####Scheduler Conveyor: JUDITH MARKHAM ([phone])[facility] ([facility])[address] [place] [address] WBC (Bld) [#/Vol] 8.6 10*3/uL Normal 3.6-10.7 [facility] Comment on above: Performed By: #### L [id number] ####Scheduler Conveyor: JUDITH MARKHAM ([phone])[facility] ([facility])[address] [place] [address] COMPREHENSIVE METABOLIC PANE Rylan 02-04-2024 Albumin [Mass/Vol] 4.1 g/dL Normal 3.5-5.0 [facility] Comment on above: Performed By: #### L [id number], LAB46 ####Scheduler Conveyor: JUDITH MARKHAM ([phone])[facility])[address] [place] [address] ALP [Catalytic activity/Vol] 192 U/L High 40-150 [facility] Comment on above: Performed By: #### L [id number], LAB46 ####Scheduler Conveyor: JUDITH MARKHAM ([phone])[facility] [place] [address] [place] ALT [Catalytic activity/Vol] 189 U/L High <40 [facility] Comment on above: Performed By: #### L AB17, LAB46 ####Scheduler Conveyor: JUDITH MARKHAM ([phone])[facility] [place] [address] [place] Anion gap [Moles/Vol] 15 mmol/L High 3-13 [facility] Comment on above: Performed By: #### L AB17, LAB46 ####Scheduler Conveyor: JUDITH MARKHAM ([phone])[facility] ([facility])[address] [place] [address] AST [Catalytic activity/Vol] 463 U/L High <34 [facility] Comment on above: Performed By: #### L AB17, LAB46 ####Scheduler Conveyor: JUDITH MARKHAM ([phone])[facility] ([facility])[address] [place] [address] [place] Bilirubin [Mass/Vol] 0.5 mg/dL Normal <1.2 [facility] Comment on above: Performed By: #### L AB17, LAB46 ####Scheduler Conveyor: JUDITH MARKHAM ([phone])[facility] ([facility])[address] [place] [address] Calcium [Mass/Vol] 8.9 mg/dL Normal 8.4-10.2 [facility] Comment on above: Performed By: #### L AB17, LAB46 ####Scheduler Conveyor: JUDITH MARKHAM ([phone])[facility] ([facility])[address] [place] [place] [address] [place] Chloride [Moles/Vol] 106 mmol/L Normal 98-107 [facility] Comment on above: Performed By: #### L AB17, LAB46 ####Scheduler Conveyor: JUDITH MARKHAM ([phone])[facility] ([facility])[address] [place] [place] [address] [place] CO2 [Moles/Vol] 20 mmol/L Low 22-29 [facility] Comment on above: Performed By: #### L AB17, LAB46 ####Scheduler Conveyor: JUDITH MARKHAM ([phone])[facility])[address] [place] [address] Creatinine [Mass/Vol] 0.74 mg/dL Normal 0.72-1.25 [facility] Comment on above: Performed By: #### Iggy AB17, LAB46 ####Scheduler Conveyor: JUDITH MARKHAM ([phone])[facility])[address] [place] [address] GLOMERULAR FILTRATION RATE ML/MIN/1.73 SQ M.PREDICTED >90.0 Normal >60.0 [facility] Comment on above: Result Comment: Calc ulation based on the Chronic Kidney Disease Epidemiology Collaboration (CKD-EPI) equation refit without adjustment for race Performed By: #### Iggy [id number], LAB46 ####Scheduler Conveyor: JUDITH MARKHAM ([phone])[facility])[address] [place] [address] Glucose [Mass/Vol] 211 mg/dL High 74-100 [facility] Comment on above: Performed By: #### Iggy JOHNSON17, LAB46 ####Scheduler Conveyor: JUDITH MARKHAM ([phone])[address] Potassium [Moles/Vol] 2.9 mmol/L Low 3.5-5.1 [facility] Comment on above: Result Comment: [facility] potassium values may be up to 0.5 mmol/L lower than serum values. Performed By: #### L AB17, LAB46 ####Scheduler Conveyor: JUDITH MARKHAM ([phone])[facility])[address] [place] [address] Protein [Mass/Vol] 7.9 g/dL Normal 6.4-8.3 [facility] Comment on above: Performed By: #### L AB17, LAB46 ####Scheduler Conveyor: JUDITH MARKHAM ([phone])[facility])[address] [place] [address] Sodium [Moles/Vol] 141 mmol/L Normal 136-145 [facility] Comment on above: Performed By: #### L AB17, LAB46 ####Scheduler Conveyor: JUDITH MARKHAM ([phone])[facility] ([facility])[address] [place] [address] Urea nitrogen [Mass/Vol] 4 mg/dL Low 8-21 [facility] Comment on above: Performed By: #### L AB17, LAB46 ####Scheduler Conveyor: JUDITH MARKHAM ([phone])[facility] ([facility])[address] [place] [address] Comprehensive metabolic 1998 panelon 02-04-2024 Albumin [Mass/Vol] 4.1 g/dL 3.5 - 5.0 g/dL [facility] ALP [Catalytic activity/Vol] 192 U/L High 40 - 150 U/L [facility] ALT [Catalytic activity/Vol] 189 U/L High NINF - 40 U/L [facility] Anion gap [Moles/Vol] 15 mmol/L High 3 - 13 mmol/L [facility] AST [Catalytic activity/Vol] 463 U/L High [facility] MARYVALEF - 34 U/L [facility] Bilirubin [Mass/Vol] 0.5 mg/dL [facility] MARYVALEF - 1.2 mg/dL [facility] Calcium [Mass/Vol] 8.9 mg/dL 8.4 - 10. 2 mg/dL [facility] Chloride [Moles/Vol] 106 mmol/L 98 - 10 7 mmol/L [facility] CO2 [Moles/Vol] 20 mmol/L Low 22 - 29 mmol/L [facility] Creatinine [Mass/Vol] 0.74 mg/dL 0.72 - 1.25 mg/dL [facility] GFR/1.73 sq M.predicted (S/P/Bld) [Vol rate/Area] - PINF [facility] Comment on above: Calculation based on the Chronic Kidney Disease Epidemiology Collaboration (CKD-EPI) equation refit without adjustment for race Glucose [Mass/Vol] 211 mg/dL High 74 - 100 mg/dL [facility] Interpretation and review of laboratory results Abnormal [facility] Potassium [Moles/Vol] 2.9 mmol/L Low 3.5 - 5.1 mmol/L [facility] Comment on above: Plasma potassium víctor ues may be up to 0.5 mmol/L lower than serum values. Protein [Mass/Vol] 7.9 g/dL 6.4 - 8.3 g/dL [facility] Sodium [Moles/Vol] 141 mmol/L 136 - 145 mmol/L [facility] Urea nitrogen [Mass/Vol] 4 mg/dL Low 8 - 21 mg/dL [facility] DRUGS OF ABUSEon 02-04-2024 AMPHETAMINE SCREEN Negative Normal [facility] Comment on above: Performed By: #### L [id number] ####Scheduler Conveyor: JUDITH MARKHAM ([phone])[address] BARBITURATES SCREEN Negative Normal [facility] Comment on above: Performed By: #### L [id number] ####Scheduler Conveyor: JUDITH MARKHAM ([phone])[address] BENZODIAZEPINE SCREEN Negative [facility] Comment on above: Performed By: #### L [id number] ####Scheduler Conveyor: JUDITH MARKHAM ([id number])[address] COCAINE METAB. SCREEN Positive Normal [facility] Comment on above: Performed By: #### L [id number] ####Scheduler Conveyor: JUDITH MARKHAM ([phone])[address] FENTANYL SCREEN, UR QUAL Negative Normal [facility] Comment on above: Result Comment: ORDE [...] under separate order. Performed By: #### L [id number] ####Scheduler Conveyor: JUDITH MARKHAM ([phone])[facility])[address] [place] [address] METHADONE SCREEN Negative Normal [facility] Comment on above: Performed By: #### L [id number] ####Scheduler Conveyor: JUDITH MARKHAM ([phone])[address] OPIATES SCREEN Negative Normal [facility] Comment on above: Performed By: #### L [id number] ####Scheduler Conveyor: JUDITH MARKHAM ([phone])[address] OXYCODONE SCREEN Negative Normal [facility] Comment on above: Performed By: #### L [id number] ####Scheduler Conveyor: JUDITH MARKHAM ([phone])[address] PHENCYCLIDINE SCREEN Negative Normal [facility] Comment on above: Performed By: #### L [id number] ####Scheduler Conveyor: JUDITH MARKHAM ([phone])[address] ED Nursing Noteon 02-04-2024 ED Nursing Note Etoh detox admit. Responds to verbal. A/ox4. Report received from lunch covered nurse. Vss and updated. Oriented to call hooper. No distress. [facility] ED Nursing Note Report given to frederick canales RN [facility] ED Nursing Note Pt given warm blanket Normal [facility] ED Nursing Note Provider messaged on pt behalf requesting something for detox [facility] ED Nursing Note Pt able to give urin e sample in urinal at this time [facility] ED Nursing Note Pt refusing urinal. Deion santillan came into room to assist this RN with urine sample. Pt stating he can't urinate at this time. Normal [facility] ED Nursing Note Normal [facility] ED Provider Noteon ED Provider Note Normal [facility] ETHANOLon 02-04-2024 ETHANOL IN SER/PLAS 193 mg/dL High <10 [facility] Comment on above: Result Comment: ORDE R COMMENTS:VOICE PATHOLOGIST depression is seen >100 mg/dL.NOTE: This result is for medical treatment only. Analysis performed using non-forensic procedures. Performed By: #### L AB46, LAB15 ####Scheduler Conveyor: JUDITH MARKHAM ([phone])[address] ETHANOL IN SER/PLAS 422 mg/dL Critically high <10 [facility] Comment on above: Result Comment: ORDE R COMMENTS:VOICE PATHOLOGIST depression is seen >100 mg/dL.NOTE: This result is for medical treatment only. Analysis performed using non-forensic procedures. Performed By: #### L AB17, LAB46 ####Scheduler Conveyor: JUDITH MARKHAM ([id number])[facility] ([facility])[address] [place] [address] Ethanol (Bld) [Mass/Vol]on 1 04-06-2023 Ethanol [Mass/Vol] 193 mg/dL High NINF - 10 mg/dL [facility] Interpretation and review of laboratory results Abnormal [facility] VOICE PATHOLOGIST depression is se en >100 mg/dL. NOTE: This result is for medical treatment only. Analysis performed using non-forensic procedures. [facility] Ethanol (Bld) [Mass/Vol]Orde red By: Manuel Dawson on 02-04-2024 Ethanol [Mass/Vol] 422 mg/dL Critically high NINF - 10 mg/dL [facility] Interpretation and review of laboratory results Abnormal [facility] VOICE PATHOLOGIST depression is se en >100 mg/dL. NOTE: This result is for medical treatment only. Analysis performed using non-forensic procedures. [facility] Laboratory - Chemistry and C hemistry - challengeon 02-04-2024 Base excess Calc (BldV) [Moles/Vol] -1.9000 mmol/L -3.0 - 3.0 mmol/L [facility] CO2 (BldV) [Partial pressure] 39.7 mm[Hg] Low [facility] CO2 [Moles/Vol] 24.2 mmol/L 24.0 - 28.0 mmol/L [facility] HCO3 (Bld) [Moles/Vol] 23 mmol/L 23.0 - 27.0 mmol/L [facility] Oxygen (BldV) [Partial pressure] 50.3 mm[Hg] mm Hg [facility] pH (BldV) 7.38 [pH] 7.330 - 7.430 [facility] Laboratory - Chemistry and C hemistry - challengeOrdered By: Maddie Verdin on 02-04-2024 Base excess Calc (BldV) [Moles/Vol] -12 mmol/L Low -3.0 - 3.0 mmol/L [facility] CO2 (BldV) [Partial pressure] 42.7 mm[Hg] [facility] CO2 [Moles/Vol] 17.1 mmol/L Low 24.0 - 28.0 mmol/L [facility] HCO3 (Bld) [Moles/Vol] 15.8 mmol/L Low 23.0 - 27.0 mmol/L [facility] Oxygen (BldV) [Partial pressure] 131.7 mm[Hg] mm Hg [facility] pH (BldV) 7.185 [pH] Low 7.330 - 7.430 [facility] Laboratory - Drug toxicology on 02-04-2024 Amphetamines Screen method >1000 ng/mL Ql (U) Negative [facility] Barbiturates Screen method >200 ng/mL Ql (U) Negative [facility] Benzodiazepines Ql (U) Negative [facility] Methadone Screen Ql (U) Negative [facility] Opiates Screen Ql (U) Negative [facility] oxyCODONE Ql (U) Negative [facility] Phencyclidine Ql (U) Negative [facility] Laboratory - Hematology and Cell countson 02-04-2024 Hemoglobin (Bld) [Mass/Vol] 15 g/dL Screen only [facility] Laboratory - Hematology and Cell countsOrdered By: Maddie Verdin on 02-04-2024 Hemoglobin (Bld) [Mass/Vol] 13.5 g/dL Screen only [facility] Laboratory - Microbiology an d Antimicrobial susceptibilityOrdered By: Hermelinda Shukla on 02-04-2024 SARS-CoV-2 (COVID-19) Ag IA.rapid Ql (Resp) Negative Negative [facility] Comment on above: A negative result do es not rule out the possibility of SARS-CoV-2 infection. NAAT-based methods should be considered for symptomatic patients presenting greater than seven days after onset of symptoms. Method: Lateral flow immunoassay. Fact sheets for healthcare providers and patients can be found at the following sites: https://www.fda.gov/media/452696/download https://www.fda.gov/media/505145/download No Panel Informationon 02-03 Interpretation and review of laboratory results Abnormal [facility] Source Of Oxygen Room Air [facility] Assessment of oxygenation is best done with an arterial blood gas determination. Reference ranges for pO2, bicarbonate, and base excess are for mixed venous blood. Specimens drawn from a peripheral vein will often have higher values. [facility] COCAINE METAB. SCREEN Positive [facility] FENTANYL SCREEN, UR QUAL Negative [facility] The expected value f or all [...] is needed, request confirmation under separate order. [facility] No Panel InformationOrdered By: Maddie Verdin on 02-04-2024 Interpretation and review of laboratory results Abnormal [facility] Source Of Oxygen Room Air [facility] Assessment of oxygenation is best done with an arterial blood gas determination. Reference ranges for pO2, bicarbonate, and base excess are for mixed venous blood. Specimens drawn from a peripheral vein will often have higher values. [facility] SARS-COV-2 ANTIGENon 024 SARS-COV-2 ANTIGEN Normal [facility] Comment on above: Performed By: #### L [id number] ####Scheduler Conveyor: JUDITH MARKHAM ([phone])[facility])[address] [place] [address] SARS-CoV-2 (COVID-19) Ag IA. rapid Ql (Resp)Ordered By: Hermelinda Shukla on 02-04-2024 Interpretation and review of laboratory results Normal [facility] Vital signson 02-04-2024 Oxygen saturation in Venous blood 76.9 % [facility] Vital signsOrdered By: Noe Verdin on 02-04-2024 Oxygen saturation in Venous blood 97.4 % [facility] 36on 01-29-2024 36 Called for post discharge follow up, no answer, voicemail left. Normal [facility] 30on 01-26-2024 30 Normal [facility] BASIC METABOLIC PANELon 01-09 Anion gap [Moles/Vol] 7 mmol/L Normal 3-13 [facility] Comment on above: Performed By: #### L AB20, LAB15 ####Scheduler Conveyor: JUDITH MARKHAM ([id number])[facility] ([facility])[address] [place] [address] Calcium [Mass/Vol] 9.4 mg/dL Normal 8.4-10.2 [facility] Comment on above: Performed By: #### L AB20, LAB15 ####Scheduler Conveyor: JUDITH MARKHAM ([phone])[facility] ([facility])[address] [place] [address] [place] Chloride [Moles/Vol] 106 mmol/L Normal 98-107 [facility] Comment on above: Performed By: #### L AB20, LAB15 ####Scheduler Conveyor: JUDITH MARKHAM ([id number])[facility])[address] [place] [address] [place] CO2 [Moles/Vol] 25 mmol/L Normal 22-29 [facility] Comment on above: Performed By: #### L AB20, LAB15 ####Scheduler Conveyor: JUDITH MARKHAM ([phone])[facility])[address] [place] [address] Creatinine [Mass/Vol] 0.64 mg/dL Low 0.72-1.25 [facility] Comment on above: Performed By: #### L AB20, LAB15 ####Scheduler Conveyor: JUDITH MARKHAM ([id number])[facility])[address] [place] [address] GLOMERULAR FILTRATION RATE ML/MIN/1.73 SQ M.PREDICTED >90.0 Normal >60.0 [facility] Comment on above: Result Comment: Calc ulation based on the Chronic Kidney Disease Epidemiology Collaboration (CKD-EPI) equation refit without adjustment for race Performed By: #### L AB20, LAB15 ####Scheduler Conveyor: JUDITH MARKHAM ([phone])[facility])[address] [place] [address] Glucose [Mass/Vol] 98 mg/dL Normal 74-100 [facility] Comment on above: Performed By: #### L AB20, LAB15 ####Scheduler Conveyor: JUDITH MARKHAM ([phone])[facility])[address] [place] [address] Potassium [Moles/Vol] 3.7 mmol/L Normal 3.5-5.1 [facility] Comment on above: Result Comment: [facility] potassium values may be up to 0.5 mmol/L lower than serum values. Performed By: #### L AB20, LAB15 ####Scheduler Conveyor: JUDITH MARKHAM ([phone])[facility] ([facility])[address] [place] [address] [place] Sodium [Moles/Vol] 138 mmol/L Normal 136-145 [facility] Comment on above: Performed By: #### L AB20, LAB15 ####Scheduler Conveyor: JUDITH MARKHAM ([id number])[facility])[address] [place] [address] [place] Urea nitrogen [Mass/Vol] 3 mg/dL Low 8-21 [facility] Comment on above: Performed By: #### L AB20, LAB15 ####Scheduler Conveyor: JUDITH MARKHAM ([phone])[facility])[address] [place] [address] Basic metabolic 1998 panelon 01-26-2024 Anion gap [Moles/Vol] 7 mmol/L 3 - 13 mmol/L [facility] Calcium [Mass/Vol] 9.4 mg/dL 8.4 - 10. 2 mg/dL [facility] Chloride [Moles/Vol] 106 mmol/L 98 - 10 7 mmol/L [facility] CO2 [Moles/Vol] 25 mmol/L 22 - 29 mmol/L [facility] Creatinine [Mass/Vol] 0.64 mg/dL Low 0.72 - 1.25 mg/dL [facility] GFR/1.73 sq M.predicted (S/P/Bld) [Vol rate/Area] - PINF [facility] Comment on above: Calculation based on the Chronic Kidney Disease Epidemiology Collaboration (CKD-EPI) equation refit without adjustment for race Glucose [Mass/Vol] 98 mg/dL 74 - 100 mg/dL [facility] Potassium [Moles/Vol] 3.7 mmol/L 3.5 - 5.1 mmol/L [facility] Comment on above: Plasma potassium víctor ues may be up to 0.5 mmol/L lower than serum values. Sodium [Moles/Vol] 138 mmol/L 136 - 145 mmol/L [facility] Urea nitrogen [Mass/Vol] 3 mg/dL Low 8 - 21 mg/dL [facility] HEPATIC FUNCTION PANELon Albumin [Mass/Vol] 3.6 g/dL Normal 3.5-5.0 [facility] Comment on above: Performed By: #### L AB20, LAB15 ####Scheduler Conveyor: JUDITH MARKHAM ([id number])[facility] ([facility])[address] [place] [address] ALP [Catalytic activity/Vol] 129 U/L Normal 40-150 [facility] Comment on above: Performed By: #### L AB20, LAB15 ####Scheduler Conveyor: JUDITH MARKHAM ([phone])[facility])[address] [place] [address] ALT [Catalytic activity/Vol] 70 U/L High <40 [facility] Comment on above: Performed By: #### L AB20, LAB15 ####Scheduler Conveyor: JUDITH MARKHAM ([phone])[facility])[address] [place] [address] AST [Catalytic activity/Vol] 94 U/L High <34 [facility] Comment on above: Performed By: #### L AB20, LAB15 ####Scheduler Conveyor: JUDITH MARKHAM ([phone])[facility])[address] [place] [address] Bilirubin [Mass/Vol] 1.0 mg/dL Normal <1.2 [facility] Comment on above: Performed By: #### L AB20, LAB15 ####Scheduler Conveyor: JUDITH MARKHAM ([phone])[address] Bilirubin.indirect [Mass/Vol] 0.6 mg/dL High <0.5 [facility] Comment on above: Performed By: #### L AB20, LAB15 ####Scheduler Conveyor: JUDITH MARKHAM ([phone])[facility])[address] [place] [address] Protein [Mass/Vol] 7.0 g/dL Normal 6.4-8.3 [facility] Comment on above: Result Comment: Seru m protein values are higher than plasma values. Samples from recumbent persons are lower by up to 0.5 g/dL as compared to ambulatory persons. After 60 years values are lower by up to 0.2 g/dL. Performed By: #### L AB20, LAB15 ####Scheduler Conveyor: JUDITH MARKHAM ([id number])[facility])[address] [place] [address] Hepatic function 2000 panelo n 01-26-2024 Albumin [Mass/Vol] 3.6 g/dL 3.5 - 5.0 g/dL [facility] ALP [Catalytic activity/Vol] 129 U/L 40 - 150 U/L [facility] ALT [Catalytic activity/Vol] 70 U/L High NINF - 40 U/L [facility] AST [Catalytic activity/Vol] 94 U/L High NINF - 34 U/L [facility] Bilirubin [Mass/Vol] 1 mg/dL [facility] - 1.2 mg/dL [facility] Bilirubin.conjugated [Mass/Vol] 0.6 mg/dL High NINF - 0.5 mg/dL [facility] Protein [Mass/Vol] 7 g/dL 6.4 - 8.3 g/dL [facility] Comment on above: Serum protein values are higher than plasma values. Samples from recumbent persons are lower by up to 0.5 g/dL as compared to ambulatory persons. After 60 years values are lower by up to 0.2 g/dL. No Panel Informationon 01-25 Interpretation and review of laboratory results Abnormal [facility] Nursing Noteon 01-26-2024 Nursing Note Patient verbalized understanding of all discharge instructions including medications, follow up appointments, s&s of infection, and when to call the physician. Normal [facility] Progress Noteon 01-26-2024 Progress Note Normal [facility] 30on 01-25-2024 30 Normal [facility] Progress Noteon 01-25-2024 Progress Note Normal [facility] 30on 01-24-2024 30 Normal [facility] 30 Normal [facility] Progress Noteon 01-24-2024 Progress Note Normal [facility] 30on 01-23-2024 30 Normal [facility] Progress Noteon 01-23-2024 Progress Note Normal [facility] 30on 01-22-2024 30 Normal [facility] 30 Normal [facility] [id number] 01-22-2024 [id number] Normal [facility] Nursing Noteon 01-22-2024 Nursing Note Normal [facility] Progress Noteon 01-22-2024 Progress Note Normal [facility] Progress Note Nutrition rescreen completed. Chart reviewed. Patient to be monitored and followed by the diet neurophysiological technician. Dietitian available upon request. RALPH Chun Normal [facility] Progress Note Normal [facility] 30on 01-21-2024 30 Normal [facility] 30 Normal [facility] BASIC METABOLIC PANELon 01-09 Anion gap [Moles/Vol] 11 mmol/L Normal -13 [facility] Comment on above: Performed By: #### L AB20, LAB46, LAB15 ####Scheduler Conveyor: JUDITH MARKHAM ([phone])[facility])[address] [place] [address] Calcium [Mass/Vol] 9.0 mg/dL Normal 8.4-10.2 [facility] Comment on above: Performed By: #### L AB20, LAB46, LAB15 ####Scheduler Conveyor: JUDITH MARKHAM ([phone])[facility] ([facility])[address] [place] [address] Chloride [Moles/Vol] 106 mmol/L Normal 98-107 [facility] Comment on above: Performed By: #### L AB20, LAB46, LAB15 ####Scheduler Conveyor: JUDITH MARKHAM ([phone])[facility])[address] [place] [address] CO2 [Moles/Vol] 23 mmol/L Normal 22-29 [facility] Comment on above: Performed By: #### L AB20, LAB46, LAB15 ####Scheduler Conveyor: JUDITH MARKHAM ([phone])[facility])[address] [place] [address] Creatinine [Mass/Vol] 0.74 mg/dL Normal 0.72-1.25 [facility] Comment on above: Performed By: #### L AB20, LAB46, LAB15 ####Scheduler Conveyor: JUDITH MARKHAM ([phone])[facility])[address] [place] [address] GLOMERULAR FILTRATION RATE ML/MIN/1.73 SQ M.PREDICTED >90.0 Normal >60.0 [facility] Comment on above: Result Comment: Calc ulation based on the Chronic Kidney Disease Epidemiology Collaboration (CKD-EPI) equation refit without adjustment for race Performed By: #### L AB20, LAB46, LAB15 ####Scheduler Conveyor: JUDITH MARKHAM ([phone])[facility])[address] [place] [address] Glucose [Mass/Vol] 115 mg/dL High 74-100 [facility] Comment on above: Performed By: #### L AB20, LAB46, LAB15 ####Scheduler Conveyor: JUDITH MARKHAM ([phone])[facility])[address] [place] [address] Potassium [Moles/Vol] 3.8 mmol/L Normal 3.5-5.1 [facility] Comment on above: Result Comment: [facility] potassium values may be up to 0.5 mmol/L lower than serum values. Performed By: #### L AB20, LAB46, LAB15 ####Scheduler Conveyor: JUDITH MARKHAM ([phone])[facility] ([facility])[address] [place] [address] Sodium [Moles/Vol] 140 mmol/L Normal 136-145 [facility] Comment on above: Performed By: #### L AB20, LAB46, LAB15 ####Scheduler Conveyor: JUDITH MARKHAM ([id number])[facility] ([facility])[address] [place] [address] Urea nitrogen [Mass/Vol] 4 mg/dL Low 8-21 [facility] Comment on above: Performed By: #### L AB20, LAB46, LAB15 ####Scheduler Conveyor: JUDITH MARKHAM ([id number])[address] Basic metabolic 1998 panelon 01-21-2024 Anion gap [Moles/Vol] 11 mmol/L 3 - 13 mmol/L [facility] Calcium [Mass/Vol] 9 mg/dL 8.4 - 10. 2 mg/dL [facility] Chloride [Moles/Vol] 106 mmol/L 98 - 10 7 mmol/L [facility] CO2 [Moles/Vol] 23 mmol/L 22 - 29 mmol/L [facility] Creatinine [Mass/Vol] 0.74 mg/dL 0.72 - 1.25 mg/dL [facility] GFR/1.73 sq M.predicted (S/P/Bld) [Vol rate/Area] - PINF [facility] Comment on above: Calculation based on the Chronic Kidney Disease Epidemiology Collaboration (CKD-EPI) equation refit without adjustment for race Glucose [Mass/Vol] 115 mg/dL High 74 - 100 mg/dL [facility] Potassium [Moles/Vol] 3.8 mmol/L 3.5 - 5.1 mmol/L [facility] Comment on above: Plasma potassium víctor ues may be up to 0.5 mmol/L lower than serum values. Sodium [Moles/Vol] 140 mmol/L 136 - 145 mmol/L [facility] Urea nitrogen [Mass/Vol] 4 mg/dL Low 8 - 21 mg/dL [facility] CBC W Auto Differential pane l (Bld)on 01-21-2024 Basophils (Bld) [#/Vol] 0.1 10*3/uL 0.0 - 0.2 10*3/uL [facility] Basophils/100 WBC (Bld) 0.5 % 0.0 - 2.0 % [facility] Eosinophils (Bld) [#/Vol] 0 10*3/uL 0.0 - 0.5 10*3/uL [facility] Eosinophils/100 WBC (Bld) 0.1 % 0.0 - 6.0 % [facility] Erythrocyte distribution width (RBC) [Ratio] 13.8 % 11.5 - 15.0 % [facility] Hematocrit (Bld) [Volume fraction] 44.1 % 40.0 - 52.0 % [facility] Hemoglobin (Bld) [Mass/Vol] 14.5 g/dL 13.0 - 18.0 g/dL [facility] Immature granulocytes (Bld) [#/Vol] 0 10*3/uL NINF - 0.1 10*3/uL [facility] Immature granulocytes/100 WBC (Bld) 0.1 % 0.0 - 2.0 % [facility] Interpretation and review of laboratory results Normal [facility] Lymphocytes (Bld) [#/Vol] 2.7 10*3/uL 1.0 - 4.3 10*3/uL [facility] Lymphocytes/100 WBC (Bld) 29.4 % 15.0 - 45.0 % [facility] MCH (RBC) [Entitic mass] 30 pg 26.0 - 34.0 pg [facility] MCHC (RBC) [Mass/Vol] 32.9 % 30.5 - 36.0 % [facility] MCV (RBC) [Entitic vol] 91.1 fL 77.0 - 99.0 fL [facility] Monocytes (Bld) [#/Vol] 0.6 10*3/uL 0.0 - 0.9 10*3/uL [facility] Monocytes/100 WBC (Bld) 6 % 5.0 - 13.0 % [facility] Neutrophils (Bld) [#/Vol] 5.9 10*3/uL 1.8 - 7.5 10*3/uL [facility] Neutrophils/100 WBC (Bld) 63.9 % 38.0 - 82.0 % [facility] Nucleated RBC/100 WBC (Bld) [Ratio] 0 % [facility] Platelet mean volume (Bld) [Entitic vol] 10 fL 9.0 - 12.7 fL [facility] Platelets (Bld) [#/Vol] 249 10*3/uL 140 - 440 10*3/uL [facility] RBC (Bld) [#/Vol] 4.84 10*6/uL 4.40 - 5.9 0 10*6/uL [facility] WBC (Bld) [#/Vol] 9.3 10*3/uL 3.6 - 10.7 10*3/uL [facility] CBC WITH AUTO DIFFERENTIALon 01-21-2024 Basophils (Bld) [#/Vol] 0.1 10*3/uL Normal 0.0-0.2 [facility] Comment on above: Performed By: #### L [id number] ####Scheduler Conveyor: JUDITH MARKHAM ([phone])[address] Basophils/100 WBC (Bld) 0.5 % Normal 0.0-2.0 [facility] Comment on above: Performed By: #### L [id number] ####Scheduler Conveyor: JUDITH [id number])[facility] ([facility])[address] [place] [address] Eosinophils (Bld) [#/Vol] 0.0 10*3/uL Normal 0.0-0.5 [facility] Comment on above: Performed By: #### L [id number] ####Scheduler Conveyor: JUDITH [id number])[facility] [address] Eosinophils/100 WBC (Bld) 0.1 % Normal 0.0-6.0 [facility] Comment on above: Performed By: #### L [id number] ####Scheduler Conveyor: JUDITH MARKHAM ([phone])[facility])[address] [place] [address] Erythrocyte distribution width (RBC) [Ratio] 13.8 % Normal 11.5-15.0 [facility] Comment on above: Performed By: #### L [id number] ####Scheduler Conveyor: JUDITH MARKHAM ([id number])[address] Hematocrit (Bld) [Volume fraction] 44.1 % Normal 40.0-52.0 [facility] Comment on above: Performed By: #### L [id number] ####Scheduler Conveyor: JUDITH MARKHAM ([phone])[address] Hemoglobin (Bld) [Mass/Vol] 14.5 g/dL Normal 13.0-18.0 [facility] Comment on above: Performed By: #### L [id number] ####Scheduler Conveyor: JUDITH MARKHAM ([phone])[address] IMMATURE GRANS % 0.1 % Normal 0.0-2.0 [facility] Comment on above: Performed By: #### L [id number] ####Scheduler Conveyor: JUDITH MARKHAM ([phone])[facility])[address] [place] [address] IMMATURE GRANS ABSOLUTE 0.0 10*3/uL Normal <0.1 [facility] Comment on above: Performed By: #### L [id number] ####Scheduler Conveyor: JUDITH MARKHAM ([phone])[facility])[address] [place] [address] Lymphocytes (Bld) [#/Vol] 2.7 10*3/uL Normal 1.0-4.3 [facility] Comment on above: Performed By: #### L [id number] ####Scheduler Conveyor: JUDITH MARKHAM ([id number])[facility])[address] [place] [address] Lymphocytes/100 WBC (Bld) 29.4 % Normal 15.0-45.0 [facility] Comment on above: Performed By: #### L [id number] ####Scheduler Conveyor: JUDITH MARKHAM ([phone])[facility])[address] [place] [address] MCH (RBC) [Entitic mass] 30.0 pg Normal 26.0-34.0 [facility] Comment on above: Performed By: #### L [id number] ####Scheduler Conveyor: JUDITH MARKHAM ([id number])[facility])[address] [place] [address] MCHC 32.9 % Normal 30.5-36.0 [facility] Comment on above: Performed By: #### L [id number] ####Scheduler Conveyor: JUDITH MARKHAM ([phone])[facility])[address] [place] [address] MCV (RBC) [Entitic vol] 91.1 fL Normal 77.0-99.0 [facility] Comment on above: Performed By: #### L [id number] ####Scheduler Conveyor: JUDITH MARKHAM ([phone])[facility])[address] [place] [address] Monocytes (Bld) [#/Vol] 0.6 10*3/uL Normal 0.0-0.9 [facility] Comment on above: Performed By: #### L [id number] ####Scheduler Conveyor: JUDITH MARKHAM ([phone])[facility])[address] [place] [address] Monocytes/100 WBC (Bld) 6.0 % Normal 5.0-13.0 [facility] Comment on above: Performed By: #### L [id number] ####Scheduler Conveyor: JUDITH MARKHAM ([phone])[facility] ([facility])[address] [place] [address] NEUTROPHILS ABSOLUTE 5.9 10*3/uL Normal 1.8-7.5 [facility] Comment on above: Performed By: #### L [id number] ####Scheduler Conveyor: JUDITH MARKHAM ([id number])[facility] ([facility])[address] [place] [address] Neutrophils/100 WBC (Bld) 63.9 % Normal 38.0-82.0 [facility] Comment on above: Performed By: #### L [id number] ####Scheduler Conveyor: JUDITH MARKHAM ([phone])[facility] ([facility])[address] [place] [address] NRBC 0.0 /100 WBCs Normal 0.0-2.0 [facility] Comment on above: Performed By: #### L [id number] ####Scheduler Conveyor: JUDITH MARKHAM ([id number])[facility] ([facility])[address] [place] [address] Platelet mean volume (Bld) [Entitic vol] 10.0 fL Normal 9.0-12.7 [facility] Comment on above: Performed By: #### L [id number] ####Scheduler Conveyor: JUDITH MARKHAM ([phone])[facility] ([facility])[address] [place] [address] [place] Platelets (Bld) [#/Vol] 249 10*3/uL Normal 140-440 [facility] Comment on above: Performed By: #### L [id number] ####Scheduler Conveyor: JUDITH MARKHAM ([id number])[facility] ([facility])[address] [place] [address] [place] RBC (Bld) [#/Vol] 4.84 10*6/uL Normal 4.40-5.90 [facility] Comment on above: Performed By: #### L [id number] ####Scheduler Conveyor: JUDITH MARKHAM ([id number])[facility] ([facility])[address] WBC (Bld) [#/Vol] 9.3 10*3/uL Normal 3.6-10.7 [facility] Comment on above: Performed By: #### L [id number] ####Scheduler Conveyor: JUDITH MARKHAM ([phone])[facility] ([facility])[address] [place] [address] Consulton 01-21-2024 Consult Normal [facility] ETHANOLon 01-21-2024 ETHANOL IN SER/PLAS <10 Normal <10 [facility] Comment on above: Result Comment: This sample may have been collected by using an alcohol pad to swab the skin. Ethanol-containing antiseptics before venipuncture may not be causes of spurious or false positive results of alcohol measurement at least when ideal venipunctures can be performed. However, under non-ideal collection conditions, alcohol contamination is a possibility. Results to be correlated clinically.ORDER COMMENTS:VOICE PATHOLOGIST depression is seen >100 mg/dL.NOTE: This result is for medical treatment only. Analysis performed using non-forensic procedures. Performed By: #### L AB20, LAB46, LAB15 ####Scheduler Conveyor: JUDITH MARKHAM ([phone])[facility] ([facility])[address] [place] [address] ETHYL GLUCURONIDE SCREEN, UR INEon 01-21-2024 ETHYL GLUCURONIDE, URINE Positive Normal Negative [facility] Comment on above: Result Comment: ORDE R [...] been determined by the clinical laboratories of [facility]. Performed By: #### L [id number], [id number] ####Scheduler Conveyor: JUDITH MARKHAM ([phone])[facility] [place] [address] Ethanol (Bld) [Mass/Vol]on 1 03-23-2023 Ethanol [Mass/Vol] mg/dL NINF - 10 mg/dL [facility] Comment on above: This sample may [...] Interpretation and review of laboratory results Normal [facility] VOICE PATHOLOGIST depression is se en >100 mg/dL. NOTE: This result is for medical treatment only. Analysis performed using non-forensic procedures. [facility] HEPATIC FUNCTION PANELon Albumin [Mass/Vol] 4.0 g/dL Normal 3.5-5.0 [facility] Comment on above: Performed By: #### L AB20, LAB46, LAB15 ####Scheduler Conveyor: JUDITH MARKHAM ([phone])[facility])[address] [place] [address] ALP [Catalytic activity/Vol] 193 U/L High 40-150 [facility] Comment on above: Performed By: #### L AB20, LAB46, LAB15 ####Scheduler Conveyor: JUDITH MARKHAM ([phone])[facility])[address] [place] [address] ALT [Catalytic activity/Vol] 157 U/L High <40 [facility] Comment on above: Performed By: #### L AB20, LAB46, LAB15 ####Scheduler Conveyor: JUDITH MARKHAM ([phone])[facility])[address] [place] [address] AST [Catalytic activity/Vol] 163 U/L High <34 [facility] Comment on above: Performed By: #### L AB20, LAB46, LAB15 ####Scheduler Conveyor: JUDITH MARKAHM ([phone])[facility])[address] [place] [address] Bilirubin [Mass/Vol] 0.9 mg/dL Normal <1.2 [facility] Comment on above: Performed By: #### L AB20, LAB46, LAB15 ####Scheduler Conveyor: JUDITH MARKHAM ([phone])[address] Bilirubin.indirect [Mass/Vol] 0.4 mg/dL Normal <0.5 [facility] Comment on above: Performed By: #### L AB20, LAB46, LAB15 ####Scheduler Conveyor: JUDITH MARKHAM ([phone])[facility])[address] [place] [address] Protein [Mass/Vol] 7.9 g/dL Normal 6.4-8.3 [facility] Comment on above: Result Comment: Seru m protein values are higher than plasma values. Samples from recumbent persons are lower by up to 0.5 g/dL as compared to ambulatory persons. After 60 years values are lower by up to 0.2 g/dL. Performed By: #### L AB20, LAB46, LAB15 ####Scheduler Conveyor: JUDITH MARKHAM ([id number])[facility])[address] [place] [address] Hepatic function 2000 panelo n 01-21-2024 Albumin [Mass/Vol] 4 g/dL 3.5 - 5.0 g/dL [facility] ALP [Catalytic activity/Vol] 193 U/L High 40 - 150 U/L [facility] ALT [Catalytic activity/Vol] 157 U/L High NINF - 40 U/L [facility] AST [Catalytic activity/Vol] 163 U/L High NINF - 34 U/L [facility] Bilirubin [Mass/Vol] 0.9 mg/dL [facility]ARY[facility] - 1.2 mg/dL [facility] Bilirubin.conjugated [Mass/Vol] 0.4 mg/dL [facility] - 0.5 mg/dL [facility] Protein [Mass/Vol] 7.9 g/dL 6.4 - 8.3 g/dL [facility] Comment on above: Serum protein values are higher than plasma values. Samples from recumbent persons are lower by up to 0.5 g/dL as compared to ambulatory persons. After 60 years values are lower by up to 0.2 g/dL. Laboratory - Coagulationon 1 03-23-2023 aPTT Coag (PPP) [Time] 25.7 s 20.0 - 30.5 s [facility] INR Coag (PPP) [Relative time] 1.1 {INR} 0.9 - 1.1 [facility] Comment on above: Recommended Anticoag ulant [...] 12.4 s High 9.0 - 12.0 s [facility] - Drug toxicology Ordered By: Chelsey Anderson on 01-21-2024 Amphetamines Ql (U) Negative Negative [facility] Barbiturates screen method Nom (U) Positive Negative [facility] Benzodiazepines screen method Nom (U) Negative Negative [facility] Cocaine Ql (U) Negative Negative [facility] Ethanol [Mass/Vol] Negative Negative [facility] Methadone Ql (U) Negative Negative [facility] Opiates Screen Ql (U) Positive Negative [facility] MEDICATION ASSISTED TREATMEN T PANELon 01-21-2024 Amphetamines Ql (U) Negative Normal Negative [facility] Comment on above: Performed By: #### L [id number], [id number] ####Scheduler Conveyor: JUDITH MARKHAM ([phone])[facility] [place] ([facility])[address] [place] [address] BARBITURATES Positive Normal Negative [facility] Comment on above: Performed By: #### L [id number], [id number] ####Scheduler Conveyor: JUDITH MARKHAM ([phone])[facility] [place] ([facility])[address] [place] [address] Benzodiazepines Ql (U) Negative Normal Negative [facility] Comment on above: Performed By: #### L [id number], [id number] ####Scheduler Conveyor: JUDITH MARKHAM ([id number])[facility] [place] ([facility])[address] BUPRENORPHINE SCREEN Negative Normal Negative [facility] Comment on above: Performed By: #### L [id number], [id number] ####Scheduler Conveyor: JUDITH MARKHAM ([phone])[facility] [place] [facility] [place] [address] Cocaine Ql (U) Negative Normal Negative [facility] Comment on above: Performed By: #### L [id number], [id number] ####Scheduler Conveyor: JUDITH MARKHAM ([phone])[facility] [place] ([facility])[address] [place] [address] ETHANOL-ETOHO Negative Normal Negative [facility] Comment on above: Result Comment: ORDE [...] using non-forensic procedures. Performed By: #### L [id number], [id number] ####Scheduler Conveyor: JUDITH MARKHAM ([phone])[facility] [place] [facility] [place] [address] FENTANYL Negative Normal Negative [facility] Comment on above: Performed By: #### L [id number], [id number] ####Scheduler Conveyor: JUDITH MARKHAM ([phone])[facility] [place] [facility] [place] [address] Methadone Ql (U) Negative Normal Negative [facility] Comment on above: Performed By: #### L [id number], [id number] ####Scheduler Conveyor: JUDITH MARKHAM ([phone])[facility] [place] ([facility])[address] [place] [address] Opiates Ql (U) Positive Normal Negative [facility] Comment on above: Performed By: #### L [id number], [id number] ####Scheduler Conveyor: JUDITH MARKHAM ([phone])[facility])[address] [place] [address] OXYCODONE/OXYMORPHONE Negative Normal Negative [facility] Comment on above: Performed By: #### L [id number], [id number] ####Scheduler Conveyor: JUDITH MARKHAM ([phone])[facility])[address] [place] [address] PCP Negative Normal Negative [facility] Comment on above: Performed By: #### L [id number], [id number] ####Scheduler Conveyor: JUDITH MARKHAM ([phone])[facility] [place] ([facility])[address] [place] [address] THC-MTTHC Negative Normal Negative [facility] Comment on above: Performed By: #### L [id number], [id number] ####Scheduler Conveyor: JUDITH MARKHAM ([phone])[facility])[address] [place] [address] No Panel InformationOrdered By: Chelsey Anderson on 01-21-2024 BUPRENORPHINE SCREEN Negative Negative [facility] FENTANYL Negative Negative [facility] OXYCODONE/OXYMORPHONE Negative Negative [facility] PCP Negative Negative [facility] THC Negative Negative [facility] The expected value f or the [...] treatment only. Analysis performed using non-forensic procedures. [facility] No Panel InformationOrdered By: Sarita Espino on 01-21-2024 ETHYL GLUCURONIDE, URINE Positive Negative [facility] Ethyl Glucuronide castillo s been screened [...] been determined by the clinical laboratories of [facility]. [facility] No Panel Informationon 01-20 Interpretation and review of laboratory results Abnormal [facility] Interpretation and review of laboratory results Abnormal [facility] Nursing Noteon 01-21-2024 Nursing Note Pt. On unit. BP jose elias ins elevated at 160/114. made aware and are okay with BP at present time. Normal [facility] PROTIME AND APTTon aPTT Coag (Bld) [Time] 25.7 s Normal 20.0-30.5 [facility] Comment on above: Performed By: #### L [id number] ####Scheduler Conveyor: JUDITH MARKHAM ([phone])[address] INR Coag (PPP) [Relative time] 1.1 {INR} Normal 0.9-1.1 [facility] Comment on above: Result Comment: Mason [...] prevent Myocardial Infarction Performed By: #### L [id number] ####Scheduler Conveyor: JUDITH MARKHAM ([id number])[facility] [place] [facility] [place] [address] PT Coag (PPP) [Time] 12.4 s High 9.0-12.0 [facility] Comment on above: Performed By: #### L [id number] ####Scheduler Conveyor: JUDITH MARKHAM ([phone])[facility] [place] ([facility])[address] [place] [address] Progress Noteon 01-21-2024 Progress Note Normal [facility] CBC W Auto Differential pane l (Bld)on 01-20-2024 Basophils (Bld) [#/Vol] 0.1 10*3/uL 0.0 - 0.2 10*3/uL [facility] Basophils/100 WBC (Bld) 0.7 % 0.0 - 2.0 % [facility] Eosinophils (Bld) [#/Vol] 0 10*3/uL 0.0 - 0.5 10*3/uL [facility] Eosinophils/100 WBC (Bld) 0.4 % 0.0 - 6.0 % [facility] Erythrocyte distribution width (RBC) [Ratio] 13.9 % 11.5 - 15.0 % [facility] Hematocrit (Bld) [Volume fraction] 48 % 40.0 - 52.0 % [facility] Hemoglobin (Bld) [Mass/Vol] 15.9 g/dL 13.0 - 18.0 g/dL [facility] Immature granulocytes (Bld) [#/Vol] 0 10*3/uL NINF - 0.1 10*3/uL [facility] Immature granulocytes/100 WBC (Bld) 0.2 % 0.0 - 2.0 % [facility] Interpretation and review of laboratory results Abnormal [facility] Lymphocytes (Bld) [#/Vol] 3.7 10*3/uL 1.0 - 4.3 10*3/uL [facility] Lymphocytes/100 WBC (Bld) 45.8 % High 15.0 - 45.0 % [facility] MCH (RBC) [Entitic mass] 29.9 pg 26.0 - 34.0 pg [facility] MCHC (RBC) [Mass/Vol] 33.1 % 30.5 - 36.0 % [facility] MCV (RBC) [Entitic vol] 90.2 fL 77.0 - 99.0 fL [facility] Monocytes (Bld) [#/Vol] 0.5 10*3/uL 0.0 - 0.9 10*3/uL [facility] Monocytes/100 WBC (Bld) 6.1 % 5.0 - 13.0 % [facility] Neutrophils (Bld) [#/Vol] 3.8 10*3/uL 1.8 - 7.5 10*3/uL [facility] Neutrophils/100 WBC (Bld) 46.8 % 38.0 - 82.0 % [facility] Nucleated RBC/100 WBC (Bld) [Ratio] 0 % [facility] Platelet mean volume (Bld) [Entitic vol] 9.7 fL 9.0 - 12.7 fL [facility] Platelets (Bld) [#/Vol] 323 10*3/uL 140 - 440 10*3/uL [facility] RBC (Bld) [#/Vol] 5.32 10*6/uL 4.40 - 5.9 0 10*6/uL [facility] WBC (Bld) [#/Vol] 8.2 10*3/uL 3.6 - 10.7 10*3/uL [facility] CBC WITH AUTO DIFFERENTIALon 01-20-2024 Basophils (Bld) [#/Vol] 0.1 10*3/uL Normal 0.0-0.2 [facility] Comment on above: Performed By: #### L [id number] ####Scheduler Conveyor: JUDITH MARKHAM ([id number])[facility] [place] ([facility])[address] [place] [address] Basophils/100 WBC (Bld) 0.7 % Normal 0.0-2.0 S [facility] Comment on above: Performed By: #### L [id number] ####Scheduler Conveyor: JUDITH MARKHAM ([phone])[facility] [place] ([facility])[address] [place] [address] Eosinophils (Bld) [#/Vol] 0.0 10*3/uL Normal 0.0-0.5 [facility] Comment on above: Performed By: #### L [id number] ####Scheduler Conveyor: JUDITH MARKHAM ([phone])[address] Eosinophils/100 WBC (Bld) 0.4 % Normal 0.0-6.0 [facility] Comment on above: Performed By: #### L [id number] ####Scheduler Conveyor: JUDITH MARKHAM ([phone])[facility])[address] [place] [address] Erythrocyte distribution width (RBC) [Ratio] 13.9 % Normal 11.5-15.0 [facility] Comment on above: Performed By: #### L [id number] ####Scheduler Conveyor: JUDITH MARKHAM ([phone])[address] Hematocrit (Bld) [Volume fraction] 48.0 % Normal 40.0-52.0 [facility] Comment on above: Performed By: #### L [id number] ####Scheduler Conveyor: JUDITH MARKHAM ([phone])[address] Hemoglobin (Bld) [Mass/Vol] 15.9 g/dL Normal 13.0-18.0 [facility] Comment on above: Performed By: #### L [id number] ####Scheduler Conveyor: JUDITH MARKHAM ([phone])[address] IMMATURE GRANS % 0.2 % Normal 0.0-2.0 [facility] Comment on above: Performed By: #### L [id number] ####Scheduler Conveyor: JUDITH MARKHAM ([phone])[address] IMMATURE GRANS ABSOLUTE 0.0 10*3/uL Normal <0.1 [facility] Comment on above: Performed By: #### L [id number] ####Scheduler Conveyor: JUDITH MARKHAM ([phone])[facility])[address] [place] [address] Lymphocytes (Bld) [#/Vol] 3.7 10*3/uL Normal 1.0-4.3 [facility] Comment on above: Performed By: #### L [id number] ####Scheduler Conveyor: JUDITH MARKHAM ([phone])[facility])[address] [place] [address] Lymphocytes/100 WBC (Bld) 45.8 % High 15.0-45.0 [facility] Comment on above: Performed By: #### L [id number] ####Scheduler Conveyor: JUDITH MARKHAM ([id number])[address] MCH (RBC) [Entitic mass] 29.9 pg Normal 26.0-34.0 [facility] Comment on above: Performed By: #### L [id number] ####Scheduler Conveyor: JUDITH MARKHAM ([phone])[facility])[address] [place] [address] MCHC 33.1 % Normal 30.5-36.0 [facility] Comment on above: Performed By: #### L [id number] ####Scheduler Conveyor: JUDITH MARKHAM ([phone])[facility])[address] [place] [address] MCV (RBC) [Entitic vol] 90.2 fL Normal 77.0-99.0 [facility] Comment on above: Performed By: #### L [id number] ####Scheduler Conveyor: JUDITH MARKHAM ([phone])[facility])[address] [place] [address] Monocytes (Bld) [#/Vol] 0.5 10*3/uL Normal 0.0-0.9 [facility] Comment on above: Performed By: #### L [id number] ####Scheduler Conveyor: JUDITH MARKHAM ([id number])[facility])[address] [place] [address] Monocytes/100 WBC (Bld) 6.1 % Normal 5.0-13.0 [facility] Comment on above: Performed By: #### L [id number] ####Scheduler Conveyor: JUDITH MARHKAM ([phone])[facility] [place] ([facility])[address] [place] [address] NEUTROPHILS ABSOLUTE 3.8 10*3/uL Normal 1.8-7.5 [facility] Comment on above: Performed By: #### L [id number] ####Scheduler Conveyor: JUDITH MARKHAM ([phone])[facility] [place] ([facility])[address] [place] [address] Neutrophils/100 WBC (Bld) 46.8 % Normal 38.0-82.0 [facility] Comment on above: Performed By: #### L [id number] ####Scheduler Conveyor: JUDITH MARKHAM ([id number])[facility] [place] ([facility])[address] [place] [address] NRBC 0.0 /100 WBCs Normal 0.0-2.0 [facility] Comment on above: Performed By: #### L [id number] ####Scheduler Conveyor: JUDITH MARKHAM ([phone])[facility] [place] ([facility])[address] [place] [address] Platelet mean volume (Bld) [Entitic vol] 9.7 fL Normal 9.0-12.7 [facility] Comment on above: Performed By: #### L [id number] ####Scheduler Conveyor: JUDITH MARKHAM ([phone])[facility] [place] ([facility])[address] [place] [address] [place] Platelets (Bld) [#/Vol] 323 10*3/uL Normal 140-440 [facility] Comment on above: Performed By: #### L [id number] ####Scheduler Conveyor: JUDITH MARKHAM ([phone])[facility] [place] ([facility])[address] [place] [address] RBC (Bld) [#/Vol] 5.32 10*6/uL Normal 4.40-5.90 [facility] Comment on above: Performed By: #### L [id number] ####Scheduler Conveyor: JUDITH MARKHAM ([phone])[facility])[address] [place] [address] WBC (Bld) [#/Vol] 8.2 10*3/uL Normal 3.6-10.7 [facility] Comment on above: Performed By: #### L [id number] ####Scheduler Conveyor: JUDITH MARKHAM ([phone])[facility] [place] ([facility])[address] [place] [address] COMPLETE URINALYSISon 2023 BACTERIA (#/HPF) IN URINE Moderate Abnormal Negative [facility] Comment on above: Performed By: #### L [id number] ####Scheduler Conveyor: JUDITH MARKHAM ([phone])[address] BILIRUBIN, TOTAL PRESENCE IN URINE Negative Normal Negative [facility] Comment on above: Performed By: #### L [id number] ####Scheduler Conveyor: JUDITH MARKHAM ([phone])[facility])[address] [place] [address] Clarity (U) Slightly Cloudy Abnormal Clear [facility] Comment on above: Performed By: #### L [id number] ####Scheduler Conveyor: JUDITH MARKHAM ([phone])[facility])[address] [place] [address] Color (U) Yellow Normal Lt. Yellow [facility] Comment on above: Performed By: #### L [id number] ####Scheduler Conveyor: JUDITH MARKHAM ([phone])[facility])[address] [place] [address] Glucose (U) [Mass/Vol] 30 mg/dL Normal Normal (<70) [facility] Comment on above: Performed By: #### L [id number] ####Scheduler Conveyor: JUDITH [phone])[facility])[address] [place] [address] HEMOGLOBIN PRESENCE IN URINE Negative Normal Negative [facility] Comment on above: Performed By: #### L [id number] ####Scheduler Conveyor: JUDITH MARKHAM ([phone])[facility])[address] [place] [address] HYALINE CASTS (#/LPF) IN URINE SEDIMENT BY MICROSCOPY 11-25 Abnormal Negative [facility] Comment on above: Performed By: #### L [id number] ####Scheduler Conveyor: JUDITH MARKHAM ([phone])[facility] [place] ([facility])[address] [place] [address] Ketones Ql (U) Trace Abnormal Negative [facility] Comment on above: Performed By: #### L [id number] ####Scheduler Conveyor: JUDITH MARKHAM ([phone])[facility])[address] [place] [address] LEUKOCYTE ESTERASE PRESENCE IN URINE BY TEST STRIP Negative Normal Negative [facility] Comment on above: Performed By: #### L [id number] ####Scheduler Conveyor: JUDITH MARHKAM ([phone])[facility] [place] ([facility])[address] [place] [address] MUCUS (#/LPF) IN URINE SEDIMENT Many Abnormal Negative [facility] Comment on above: Performed By: #### L [id number] ####Scheduler Conveyor: JUDITH MARKHAM ([phone])[facility])[address] [place] [address] NITRITE PRESENCE IN URINE Negative Normal Negative [facility] Comment on above: Performed By: #### L [id number] ####Scheduler Conveyor: JUDITH MARKHAM ([phone])[facility] [place] ([facility])[address] [place] [address] pH (U) 5.5 [pH] Normal 5.0-8.0 [facility] Comment on above: Performed By: #### L [id number] ####Scheduler Conveyor: JUDITH MARKHAM ([phone])[facility])[address] [place] [address] Protein (U) [Mass/Vol] 50 mg/dL Abnormal Negative [facility] Comment on above: Performed By: #### L [id number] ####Scheduler Conveyor: JUDITH MARKHAM ([phone])[facility])[address] [place] [address] RBC (#/HPF) IN URINE SEDIMENT 0-2 Normal 0-2 [facility] Comment on above: Performed By: #### L [id number] ####Scheduler Conveyor: JUDITH MARKHAM ([id number])[facility] [place] ([facility])[address] [place] [address] Specific gravity (U) [Rel density] 1.019 Normal 1.005-1.030 [facility] Comment on above: Performed By: #### L [id number] ####Scheduler Conveyor: JUDITH MARKHAM ([phone])[facility])[address] [place] [address] SQUAMOUS EPITHELIAL CELLS (#/HPF) IN URINE SEDIMENT 0-2 Normal 3-5 [facility] Comment on above: Performed By: #### L [id number] ####Scheduler Conveyor: JUDITH MARKHAM ([phone])[facility])[address] [place] [address] UROBILINOGEN (MG/DL) IN URINE 3 mg/dL Abnormal Normal (0-1) [facility] Comment on above: Performed By: #### L [id number] ####Scheduler Conveyor: JUDITH MARKHAM ([phone])[facility])[address] [place] [address] WBC (LEUKOCYTE) (#/HPF) IN URINE SEDIMENT 3-5 Normal 0-5 [facility] Comment on above: Performed By: #### L [id number] ####Scheduler Conveyor: JUDITH MARKHAM ([phone])[facility])[address] [place] [address] COMPREHENSIVE METABOLIC PANE Rylan 01-20-2024 Albumin [Mass/Vol] 4.3 g/dL Normal 3.5-5.0 [facility] Comment on above: Performed By: #### L AB17, LAB99 ####Scheduler Conveyor: JUDITH MARKHAM ([phone])[facility] [place] ([facility])[address] ALP [Catalytic activity/Vol] 209 U/L High 40-150 [facility] Comment on above: Performed By: #### L AB17, LAB99 ####Scheduler Conveyor: JUDITH MARKHAM ([phone])[facility] [place] [facility] [place] [address] [place] ALT [Catalytic activity/Vol] 206 U/L High <40 [facility] Comment on above: Performed By: #### L AB17, LAB99 ####Scheduler Conveyor: JUDITH MARKHAM ([phone])[facility] [place] ([facility])[address] [place] [address] Anion gap [Moles/Vol] 13 mmol/L Normal 3-13 [facility] Comment on above: Performed By: #### L AB17, LAB99 ####Scheduler Conveyor: JUDITH MARKHAM ([phone])[facility] [place] [facility] [place] [address] AST [Catalytic activity/Vol] 235 U/L High <34 [facility] Comment on above: Performed By: #### L AB17, LAB99 ####Scheduler Conveyor: JUDITH MARKHAM ([id number])[facility] [place] ([facility])[address] [place] [address] Bilirubin [Mass/Vol] 0.6 mg/dL Normal <1.2 [facility] Comment on above: Performed By: #### L AB17, LAB99 ####Scheduler Conveyor: JUDITH MARKHAM ([phone])[facility] [place] ([facility])[address] [place] [address] Calcium [Mass/Vol] 9.5 mg/dL Normal 8.4-10.2 [facility] Comment on above: Performed By: #### L AB17, LAB99 ####Scheduler Conveyor: JUDITH MARKHAM ([phone])[facility] [place] ([facility])[address] [place] [address] [place] Chloride [Moles/Vol] 103 mmol/L Normal 98-107 [facility] Comment on above: Performed By: #### L AB17, LAB99 ####Scheduler Conveyor: JUDITH MARKHAM ([phone])[facility] [place] ([facility])[address] [place] [address] CO2 [Moles/Vol] 27 mmol/L Normal 22-29 [facility] Comment on above: Performed By: #### Iggy AB17, LAB99 ####Scheduler Conveyor: JUDITH MARKHAM ([phone])[facility])[address] [place] [address] Creatinine [Mass/Vol] 0.84 mg/dL Normal 0.72-1.25 [facility] Comment on above: Performed By: #### Iggy AB17, LAB99 ####Scheduler Conveyor: JUDITH MARKHAM ([phone])[facility])[address] [place] [address] GLOMERULAR FILTRATION RATE ML/MIN/1.73 SQ M.PREDICTED >90.0 Normal >60.0 [facility] Comment on above: Result Comment: Calc ulation based on the Chronic Kidney Disease Epidemiology Collaboration (CKD-EPI) equation refit without adjustment for race Performed By: #### L 17, LAB99 ####Scheduler Conveyor: JUDITH MARKHAM ([phone])[facility] [place] ([facility])[address] [place] [address] Glucose [Mass/Vol] 136 mg/dL High 74-100 [facility] Comment on above: Performed By: #### L AB17, LAB99 ####Scheduler Conveyor: JUDITH MARKHAM ([phone])[facility])[address] [place] [address] [place] Potassium [Moles/Vol] 4.5 mmol/L Normal 3.5-5.1 [facility] Comment on above: Result Comment: [facility] potassium values may be up to 0.5 mmol/L lower than serum values. Performed By: #### L AB17, LAB99 ####Scheduler Conveyor: JUDITH MARKHAM ([phone])[facility] [place] [facility] [place] [address] Protein [Mass/Vol] 8.7 g/dL High 6.4-8.3 [facility] Comment on above: Performed By: #### L AB17, LAB99 ####Scheduler Conveyor: JUDITH MARKHAM ([phone])[facility])[address] [place] [address] Sodium [Moles/Vol] 143 mmol/L Normal 136-145 [facility] Comment on above: Performed By: #### L AB17, LAB99 ####Scheduler Conveyor: JUDITH MARKHAM ([phone])[facility])[address] [place] [address] Urea nitrogen [Mass/Vol] 4 mg/dL Low 8-21 [facility] Comment on above: Performed By: #### L AB17, LAB99 ####Scheduler Conveyor: JUDITH MARKHAM ([phone])[facility] ([facility])[address] [place] [address] CT ABDOMEN PELVIS W CONTRAST on 01-20-2024 CT ABDOMEN PELVIS W CONTRAST Normal [facility] CT Abdomen and Pelvis W cont rast Ellen 01-20-2024 1. Acute pancreatitis. 2. Bladder wall mildly diffusely thickened which may relate to under distention. Correlate with urinalysis. 3. Diffuse hepatic steatosis. Report Dictated on Electronically Signed By: Steve Medellin MD Electronically Signed Date/Time: 01/20/2024 2:50 PM [facility] Patient Name: RORO CLAIRE : [...] related to under distention. No bowel obstruction. [facility] Steve Medellin MD - 01/20/2024 [...] Electronically Signed Date/Time: 01/20/2024 2:50 PM EST [facility] Radiology Study observation (narrative) [facility] CT Abdomen and Pelvis W cont rast IVOrdered By: Steve Medellin on 01-20-2024 [facility] Work Phone: Comprehensive metabolic 1998 panelon 01-20-2024 Albumin [Mass/Vol] 4.3 g/dL 3.5 - 5.0 g/dL [facility] ALP [Catalytic activity/Vol] 209 U/L High 40 - 150 U/L [facility] ALT [Catalytic activity/Vol] 206 U/L High NINF - 40 U/L [facility] Anion gap [Moles/Vol] 13 mmol/L 3 - 13 mmol/L [facility] AST [Catalytic activity/Vol] 235 U/L High NINF - 34 U/L [facility] Bilirubin [Mass/Vol] 0.6 mg/dL NINF - 1.2 mg/dL [facility] Calcium [Mass/Vol] 9.5 mg/dL 8.4 - 10. 2 mg/dL [facility] Chloride [Moles/Vol] 103 mmol/L 98 - 10 7 mmol/L [facility] CO2 [Moles/Vol] 27 mmol/L 22 - 29 mmol/L [facility] Creatinine [Mass/Vol] 0.84 mg/dL 0.72 - 1.25 mg/dL [facility] GFR/1.73 sq M.predicted (S/P/Bld) [Vol rate/Area] - PINF [facility] Comment on above: Calculation based on the Chronic Kidney Disease Epidemiology Collaboration (CKD-EPI) equation refit without adjustment for race Glucose [Mass/Vol] 136 mg/dL High 74 - 100 mg/dL [facility] Potassium [Moles/Vol] 4.5 mmol/L 3.5 - 5.1 mmol/L [facility] Comment on above: Plasma potassium víctor ues may be up to 0.5 mmol/L lower than serum values. Protein [Mass/Vol] 8.7 g/dL High 6.4 - 8.3 g/dL [facility] Sodium [Moles/Vol] 143 mmol/L 136 - 145 mmol/L [facility] Urea nitrogen [Mass/Vol] 4 mg/dL Low 8 - 21 mg/dL [facility] ED Nursing Noteon 01-20-2024 ED Nursing Note Normal [facility] ED Nursing Note Normal [facility] ED Nursing Note Pt ambulated to bathroom independently with IV pole with a steady gait. Back to bed with no distress with exertion. Chest rise equal, axo x4. No needs expressed at this time. Normal [facility] ED Nursing Note Pt medicated per oder Normal [facility] ED Provider Noteon ED Provider Note Normal [facility] LIPASEon 01-20-2024 Lipase [Catalytic activity/Vol] 273 U/L High <55 [facility] Comment on above: Performed By: #### L AB17, LAB99 ####Scheduler Conveyor: JUDITH MARKHAM ([id number])[facility] ([address] Laboratory - Chemistry and C hemistry - challengeon 01-20-2024 Lipase [Catalytic activity/Vol] 273 U/L High NINF - 55 U/L [facility] No Panel Informationon 01-19 Interpretation and review of laboratory results Abnormal [facility] Nursing Noteon 01-20-2024 Nursing Note Normal [facility] Urinalysis complete panel (U )Ordered By: Clement Sullivan on 01-20-2024 Bacteria LM.HPF (Urine sed) [#/Area] Moderate Abnormal Negative /HPF [facility] Bilirubin Ql (U) Negative Negative mg/dL [facility] Clarity (U) Slightly Cloudy Abnormal Clear [facility] Color (U) Yellow Lt. Yellow [facility] Epithelial cells.squamous LM.HPF (Urine sed) [#/Area] 0-2 [facility] Glucose Ql (U) 30 mg/dL Normal (<70) [facility] Hemoglobin Ql (U) Negative Negative mg/dL [facility] Hyaline casts Auto (Urine sed) [#/Area] 11-25 Abnormal Negative /LPF [facility] Interpretation and review of laboratory results Abnormal [facility] Ketones (U) [Mass/Vol] Trace Abnormal Negat chan mg/dL [facility] Leukocyte esterase Test strip Ql (U) Negative Negative Teofilo/uL [facility] Mucus LM.HPF (Urine sed) [#/Area] Many Abnormal Negative /LPF [facility] Nitrite Ql (U) Negative Negative [facility] pH (U) 5.5 [pH] 5.0 - 8.0 pH [facility] Protein (U) [Mass/Vol] 50 mg/dL Abnormal Negative [facility] RBC LM.HPF (Urine sed) [#/Area] 0-2 [facility] Specific gravity (U) [Rel density] 1.019 1.005 - 1.030 [facility] Urobilinogen (U) [Mass/Vol] 3 mg/dL Abnormal Normal (0-1) [facility] WBC LM.HPF (Urine sed) [#/Area] 3-5 [facility] CBC W Auto Differential pane l (Bld)on 01-08-2024 Basophils (Bld) [#/Vol] 0 10*3/uL 0.0 - 0.2 10*3/uL [facility] Basophils/100 WBC (Bld) 0.5 % 0.0 - 2.0 % [facility] Eosinophils (Bld) [#/Vol] 0.1 10*3/uL 0.0 - 0.5 10*3/uL [facility] Eosinophils/100 WBC (Bld) 0.8 % 0.0 - 6.0 % [facility] Erythrocyte distribution width (RBC) [Ratio] 13.7 % 11.5 - 15.0 % [facility] Hematocrit (Bld) [Volume fraction] 47.7 % 40.0 - 52.0 % [facility] Hemoglobin (Bld) [Mass/Vol] 15.6 g/dL 13.0 - 18.0 g/dL [facility] Immature granulocytes (Bld) [#/Vol] 0 10*3/uL NINF - 0.1 10*3/uL [facility] Immature granulocytes/100 WBC (Bld) 0.1 % 0.0 - 2.0 % [facility] Interpretation and review of laboratory results Normal [facility] Lymphocytes (Bld) [#/Vol] 1.9 10*3/uL 1.0 - 4.3 10*3/uL [facility] Lymphocytes/100 WBC (Bld) 24.4 % 15.0 - 45.0 % [facility] MCH (RBC) [Entitic mass] 31 pg 26.0 - 34.0 pg [facility] MCHC (RBC) [Mass/Vol] 32.7 % 30.5 - 36.0 % [facility] MCV (RBC) [Entitic vol] 94.6 fL 77.0 - 99.0 fL [facility] Monocytes (Bld) [#/Vol] 0.5 10*3/uL 0.0 - 0.9 10*3/uL [facility] Monocytes/100 WBC (Bld) 5.9 % 5.0 - 13.0 % [facility] Neutrophils (Bld) [#/Vol] 5.3 10*3/uL 1.8 - 7.5 10*3/uL [facility] Neutrophils/100 WBC (Bld) 68.3 % 38.0 - 82.0 % [facility] Nucleated RBC/100 WBC (Bld) [Ratio] 0 % [facility] Platelet mean volume (Bld) [Entitic vol] 10.5 fL 9.0 - 12.7 fL [facility] Platelets (Bld) [#/Vol] 300 10*3/uL 140 - 440 10*3/uL [facility] RBC (Bld) [#/Vol] 5.04 10*6/uL 4.40 - 5.9 0 10*6/uL [facility] WBC (Bld) [#/Vol] 7.8 10*3/uL 3.6 - 10.7 10*3/uL [facility] CBC WITH AUTO DIFFERENTIALon 01-08-2024 Basophils (Bld) [#/Vol] 0.0 10*3/uL Normal 0.0-0.2 [facility] Comment on above: Performed By: #### L [id number] ####Scheduler Conveyor: SHENA GUERIN ([id number])[facility] [place] [address] Basophils/100 WBC (Bld) 0.5 % Normal 0.0-2.0 [facility] Comment on above: Performed By: #### L [id number] ####Scheduler Conveyor: SHENA GUERIN ([id number])[facility] (SBAB)[address] Eosinophils (Bld) [#/Vol] 0.1 10*3/uL Normal 0.0-0.5 [facility] Comment on above: Performed By: #### L [id number] ####Scheduler Conveyor: SHENA GUERIN ([id number])[facility] (SBHLAB)[address] Eosinophils/100 WBC (Bld) 0.8 % Normal 0.0-6.0 [facility] Comment on above: Performed By: #### L [id number] ####Scheduler Conveyor: SHENA GUERIN ([phone])[facility] Erythrocyte distribution width (RBC) [Ratio] 13.7 % Normal 11.5-15.0 [facility] Comment on above: Performed By: #### L [id number] ####Scheduler Conveyor: SHENA GUERIN ([phone])[facility] [place] [address] Hematocrit (Bld) [Volume fraction] 47.7 % Normal 40.0-52.0 [facility] Comment on above: Performed By: #### L [id number] ####Scheduler Conveyor: SHENA GUERIN ([id number])[facility] [place] [address] Hemoglobin (Bld) [Mass/Vol] 15.6 g/dL Normal 13.0-18.0 [facility] Comment on above: Performed By: #### L [id number] ####Scheduler Conveyor: SHENA GUERIN ([id number])[facility] IMMATURE GRANS % 0.1 % Normal 0.0-2.0 [facility] Comment on above: Performed By: #### L [id number] ####Scheduler Conveyor: SHENA GUERIN ([id number])[facility] IMMATURE GRANS ABSOLUTE 0.0 10*3/uL Normal <0.1 [facility] Comment on above: Performed By: #### L [id number] ####Scheduler Conveyor: SHENA GUERIN ([id number])[facility] ([facility]HLAB)[address] Lymphocytes (Bld) [#/Vol] 1.9 10*3/uL Normal 1.0-4.3 [facility] Comment on above: Performed By: #### L [id number] ####Scheduler Conveyor: SHENA GUERIN ([id number])[facility] [place] ([facility])[address] Lymphocytes/100 WBC (Bld) 24.4 % Normal 15.0-45.0 [facility] Comment on above: Performed By: #### L [id number] ####Scheduler Conveyor: SHENA GUERIN ([phone])[facility] [place] ([facility])[address] MCH (RBC) [Entitic mass] 31.0 pg Normal 26.0-34.0 [facility] Comment on above: Performed By: #### L [id number] ####Scheduler Conveyor: SHENA GUERIN ([id number])[facility] [place] ([facility])[address] MCHC 32.7 % Normal 30.5-36.0 [facility] Comment on above: Performed By: #### L [id number] ####Scheduler Conveyor: SHENA GUERIN ([phone])[facility] [place] (SB[facility]AB)[address] MCV (RBC) [Entitic vol] 94.6 fL Normal 77.0-99.0 [facility] Comment on above: Performed By: #### L [id number] ####Scheduler Conveyor: SHENA GUERIN ([phone])[facility] [place] ([facility])[address] [place] [address] [place] Monocytes (Bld) [#/Vol] 0.5 10*3/uL Normal 0.0-0.9 [facility] Comment on above: Performed By: #### L [id number] ####Scheduler Conveyor: SHENA GUERIN ([id number])[facility] ([facility]AB)[address] Monocytes/100 WBC (Bld) 5.9 % Normal 5.0-13.0 [facility] Comment on above: Performed By: #### L [id number] ####Scheduler Conveyor: SHENA GUERIN ([id number])[facility] (SBHLAB)[address] NEUTROPHILS ABSOLUTE 5.3 10*3/uL Normal 1.8-7.5 [facility] Comment on above: Performed By: #### L [id number] ####Scheduler Conveyor: SHENA GUERIN ([id number])[facility] ([facility])[address] Neutrophils/100 WBC (Bld) 68.3 % Normal 38.0-82.0 [facility] Comment on above: Performed By: #### L [id number] ####Scheduler Conveyor: SHENA GUERIN ([id number])[facility] ([facility])[address] NRBC 0.0 /100 WBCs Normal 0.0-2.0 [facility] Comment on above: Performed By: #### L [id number] ####Scheduler Conveyor: SHENA GUERIN ([id number])[facility] ([facility])[address] Platelet mean volume (Bld) [Entitic vol] 10.5 fL Normal 9.0-12.7 [facility] Comment on above: Performed By: #### L [id number] ####Scheduler Conveyor: SHENA GUERIN ([id number])[facility] ([facility])[address] [place] [address] [place] Platelets (Bld) [#/Vol] 300 10*3/uL Normal 140-440 [facility] Comment on above: Performed By: #### L [id number] ####Scheduler Conveyor: SHENA GUERIN ([id number])[facility] ([facility])[address] RBC (Bld) [#/Vol] 5.04 10*6/uL Normal 4.40-5.90 [facility] Comment on above: Performed By: #### L [id number] ####Scheduler Conveyor: SHENA GUERIN ([id number])[facility] ([facility])[address] WBC (Bld) [#/Vol] 7.8 10*3/uL Normal 3.6-10.7 [facility] Comment on above: Performed By: #### L [id number] ####Scheduler Conveyor: SHENA GUERIN ([phone])[facility] ([facility])[address] COMPREHENSIVE METABOLIC PANE Rylan 01-08-2024 Albumin [Mass/Vol] 4.8 g/dL Normal 3.5-5.0 [facility] Comment on above: Performed By: #### L AB99, LAB17 ####Scheduler Conveyor: SHENA GUERIN ([phone])[facility] ([facility])[address] ALP [Catalytic activity/Vol] 146 U/L High 38-126 [facility] Comment on above: Performed By: #### L AB99, LAB17 ####Scheduler Conveyor: SHENA GUERIN ([id number])[facility] ([facility])[address] ALT [Catalytic activity/Vol] 139 U/L High 0-49 [facility] Comment on above: Performed By: #### L AB99, LAB17 ####Scheduler Conveyor: SHENA GUERIN ([phone])[facility] (SB[facility]AB)[address] Anion gap [Moles/Vol] 9 mmol/L Normal 3-13 [facility] Comment on above: Performed By: #### L AB99, LAB17 ####Scheduler Conveyor: SHENA GUERIN ([id number])[facility] ([facility])[address] AST [Catalytic activity/Vol] 151 U/L High 15-46 [facility] Comment on above: Performed By: #### L AB99, LAB17 ####Scheduler Conveyor: SHENA GUERIN ([id number])[facility] ([facility])[address] [place] [address] [place] Bilirubin [Mass/Vol] 1.5 mg/dL High 0.2-1.3 [facility] Comment on above: Performed By: #### L AB99, LAB17 ####Scheduler Conveyor: SHENA GUERIN ([phone])[facility] [place] ([facility])[address] Calcium [Mass/Vol] 9.8 mg/dL Normal 8.4-10.4 [facility] Comment on above: Performed By: #### L AB99, LAB17 ####Scheduler Conveyor: SHENA GUERIN ([id number])[facility] [place] ([facility])[address] [place] [address] [place] Chloride [Moles/Vol] 101 mmol/L Normal 98-107 [facility] Comment on above: Performed By: #### L AB99, LAB17 ####Scheduler Conveyor: SHENA GUERIN ([id number])[facility] [place] ([facility])[address] [place] [address] [place] CO2 [Moles/Vol] 26 mmol/L Normal 22-30 [facility] Comment on above: Performed By: #### L AB99, LAB17 ####Scheduler Conveyor: SHENA GUERIN ([id number])[facility] [place] ([facility])[address] [place] [address] [place] Creatinine [Mass/Vol] 0.65 mg/dL Low 0.66-1.25 [facility] Comment on above: Performed By: #### L AB99, LAB17 ####Scheduler Conveyor: SHENA GUERIN ([id number])[facility] ([facility]AB)[address] [place] [address] [place] GLOMERULAR FILTRATION RATE ML/MIN/1.73 SQ M.PREDICTED >90.0 Normal >60.0 [facility] Comment on above: Result Comment: Calc ulation based on the Chronic Kidney Disease Epidemiology Collaboration (CKD-EPI) equation refit without adjustment for raceORDER COMMENTS:Moderately Hemolyzed. Interpret with caution. Performed By: #### L AB99, LAB17 ####Scheduler Conveyor: SHENA GUERIN ([phone])[facility] ([facility])[address] [place] [address] [place] Glucose [Mass/Vol] 127 mg/dL High 70-100 [facility] Comment on above: Performed By: #### L AB99, LAB17 ####Scheduler Conveyor: SHENA GUERIN ([id number])[facility] ([facility])[address] [place] [address] [place] Potassium [Moles/Vol] 5.5 mmol/L High 3.5-5.1 [facility] Comment on above: Performed By: #### L AB99, LAB17 ####Scheduler Conveyor: SHENA GUERIN ([id number])[facility] (HLAB)[address] [place] [address] [place] Protein [Mass/Vol] 8.6 g/dL High 6.3-8.2 [facility] Comment on above: Performed By: #### L AB99, LAB17 ####Scheduler Conveyor: SHENA GUERIN ([id number])[facility] ([facility])[address] [place] [address] [place] Sodium [Moles/Vol] 136 mmol/L Normal 135-145 [facility] Comment on above: Performed By: #### L AB99, LAB17 ####Scheduler Conveyor: SHENA GUERIN ([id number])[facility] ([facility])[address] [place] [address] [place] Urea nitrogen [Mass/Vol] 7 mg/dL Low 9-20 [facility] Comment on above: Performed By: #### L AB99, LAB17 ####Scheduler Conveyor: SHENA GUERIN ([id number])[facility] (SB[facility])[address] [place] [address] Comprehensive metabolic 1998 panelon 01-08-2024 Albumin [Mass/Vol] 4.8 g/dL 3.5 - 5.0 g/dL [facility] ALP [Catalytic activity/Vol] 146 U/L High 38 - 126 U/L [facility] ALT [Catalytic activity/Vol] 139 U/L High 0 - 49 U/L [facility] Anion gap [Moles/Vol] 9 mmol/L 3 - 13 mmol/L [facility] AST [Catalytic activity/Vol] 151 U/L High 15 - 46 U/L [facility] Bilirubin [Mass/Vol] 1.5 mg/dL High 0.2 - 1 .3 mg/dL [facility] Calcium [Mass/Vol] 9.8 mg/dL 8.4 - 10. 4 mg/dL [facility] Chloride [Moles/Vol] 101 mmol/L 98 - 10 7 mmol/L [facility] CO2 [Moles/Vol] 26 mmol/L 22 - 30 mmol/L [facility] Creatinine [Mass/Vol] 0.65 mg/dL Low 0.66 - 1.25 mg/dL [facility] GFR/1.73 sq M.predicted (S/P/Bld) [Vol rate/Area] - PINF [facility] Comment on above: Calculation based on the Chronic Kidney Disease Epidemiology Collaboration (CKD-EPI) equation refit without adjustment for race Glucose [Mass/Vol] 127 mg/dL High 70 - 100 mg/dL [facility] Potassium [Moles/Vol] 5.5 mmol/L High 3.5 - 5.1 mmol/L [facility] Protein [Mass/Vol] 8.6 g/dL High 6.3 - 8.2 g/dL [facility] Sodium [Moles/Vol] 136 mmol/L 135 - 145 mmol/L [facility] Urea nitrogen [Mass/Vol] 7 mg/dL Low 9 - 20 mg/dL [facility] Moderately Hemolyzed . Interpret with caution. [facility] ECG 12-LEADon 01-08-2024 ECG 12-LEAD IMPRESSION: Sinus rhythm LVH by voltage Borderline T abnormalities, inferior leads ST elev, probable normal early repol pattern Electronically Signed On 01-08-2024 14:16:40 EST by Josseline Weber Normal [facility] ED Nursing Noteon 01-08-2024 ED Nursing Note Normal [facility] ED Provider Noteon ED Provider Note Normal [facility] LIPASEon 01-08-2024 Lipase [Catalytic activity/Vol] 484 U/L High 23-300 [facility] Comment on above: Performed By: #### L AB99, LAB17 ####Scheduler Conveyor: SHENA GUERIN ([id number])[facility] ([facility])[address] [place] [address] Laboratory - Chemistry and C hemistry - challengeon 01-08-2024 Lipase [Catalytic activity/Vol] 484 U/L High 23 - 300 U/L [facility] No Panel Informationon 01-07 P Lyman 50 degrees [facility] NE Interval 148 ms [facility] QRS Lyman -13 degrees [facility] QRSD Interval 95 ms [facility] QT Interval 410 ms [facility] QTC Interval 444 ms [facility] T Wave Lyman -2 degrees [facility] Sinus rhythm LVH by voltage Borderline T abnormalities, inferior leads ST elev, probable normal early repol pattern Electronically Signed On 01-08-2024 14:16:40 EST by Josseline Weber CV Josseline Davenport MD - 01/08/2024 IMPRESSION: Sinus rhythm LVH by voltage Borderline T abnormalities, inferior leads ST elev, probable normal early repol pattern Electronically Signed On 01-08-2024 14:16:40 EST by Josseline Weber [facility] Interpretation and review of laboratory results Abnormal [facility] Vital signson 01-08-2024 Heart rate 70 /min bpm [facility] ALLIED HEALTHon 12-22-2023 ALLIED HEALTH HNO ID: [id number] Author: SEEMA WALTON RT(R) Service: Radiology Author [...] PATIENT PRESENTS WITH AN IMPLANTABLE OR ATTACHED BEVERAGE MANAGER: No ALLERGIES: Reviewed and unchanged CONTRAST ALLERGY: [...] PERIPHERAL IV DATA: Inpatient - refer to [facility] documentation RADIOLOGY DEPARTMENT: CT; Exam(s) Completed: Abdomen/Pelvis SIGNATURE: RT Nanci(R) PATIENT NAME: Roro Valdivia DATE: December 22, 2023 TIME: 2:42 PM Normal [facility] CBC W Auto Differential pane l (Bld)on 12-22-2023 Basophils (Bld) [#/Vol] 0.05 10*3/uL Normal <0.11 [facility] Comment on above: Order Comment: Speci men Type: BLOOD SPECIMENOrdering Facility: [facility] Address: [address] [place] [address] Performed By: #### 5 7021-8 ####[employer] LABCLIA [id number] [place] [address] [employer] [place] [facility] Basophils/100 WBC (Bld) 0.7 % Normal A [facility] Comment on above: Order Comment: Speci men Type: BLOOD SPECIMENOrdering Facility: [facility] Address: [address] [place] [address] Performed By: #### 5 7021-8 ####[employer] LABCLIA [id number] [place] [address] [facility] Differential cell count method Nom (Bld) Auto Normal [facility] Comment on above: Order Comment: Speci men Type: BLOOD SPECIMENOrdering Facility: [facility] Address: [address] [place] [address] Performed By: #### 5 7021-8 ####[employer] LABCLIA [id number] [place] [address] [facility] Eosinophils (Bld) [#/Vol] 0.04 10*3/uL Normal <0.46 [facility] Comment on above: Order Comment: Speci men Type: BLOOD SPECIMENOrdering Facility: [facility] Address: [address] [place] [address] Performed By: #### 5 7021-8 ####[employer] LABCLIA [id number] [place] [address] [facility] Eosinophils/100 WBC (Bld) 0.6 % Normal [facility] Comment on above: Order Comment: Speci men Type: BLOOD SPECIMENOrdering Facility: [facility] Address: [address] [place] [address] Performed By: #### 5 7021-8 ####[employer] LABCLIA [id number] [place] [address] [employer] [place] [facility] Erythrocyte distribution width (RBC) [Ratio] 14.2 % Normal 11.5-15.0 [facility] Comment on above: Order Comment: Speci men Type: BLOOD SPECIMENOrdering Facility: [facility] Address: [address] [place] [address] Performed By: #### 5 7021-8 ####C[employer]RT M[employer] LABCLIA [id number] [place] [address] [place] Hematocrit (Bld) [Volume fraction] 45.7 % Normal 39.0-51.0 [facility] Comment on above: Order Comment: Speci men Type: BLOOD SPECIMENOrdering Facility: [facility] Address: [address] [place] [address] Performed By: #### 5 7021-8 ####VANCEMAYURI MURRAY LABCLIA [id number] [place] [address] [place] Hemoglobin (Bld) [Mass/Vol] 15.2 g/dL Normal 13.0-17.0 [facility] Comment on above: Order Comment: Speci men Type: BLOOD SPECIMENOrdering Facility: [facility] Address: [address] [place] [address] Performed By: #### 5 7021-8 ####COURT MUR[employer] LABCLIA [id number] [place] [address] [employer] [place] Immature granulocytes (Bld) [#/Vol] 10*3/uL Normal <0.10 [facility] Comment on above: Order Comment: Speci men Type: BLOOD SPECIMENOrdering Facility: [facility] Address: [address] [place] [address] Performed By: #### 5 7021-8 ####[facility] LABCLIA [id number] [place] [id number] [employer] [place] Immature granulocytes/100 WBC (Bld) 0.0 % Normal [facility] Comment on above: Order Comment: Speci men Type: BLOOD SPECIMENOrdering Facility: [facility] Address: [address] [place] [address] Performed By: #### 5 7021-8 ####MTMAYURI MURRAY LABCLIA [id number] [place] [address] [place] Lymphocytes (Bld) [#/Vol] 2.01 10*3/uL Normal 1.00-4.00 [facility] Comment on above: Order Comment: Speci men Type: BLOOD SPECIMENOrdering Facility: [facility] Address: [address] [place] [address] Performed By: #### 5 7021-8 ####[facility] LABCLIA [id number] [place] [address] [facility] Lymphocytes/100 WBC (Bld) 28.2 % Normal [facility] Comment on above: Order Comment: Speci men Type: BLOOD SPECIMENOrdering Facility: [facility] Address: [address] [place] [address] Performed By: #### 5 7021-8 ####[facility] LABCLIA [id number] [place] [address] [employer] [place] MCH (RBC) [Entitic mass] 31.4 pg Normal 26.0-34.0 [facility] Comment on above: Order Comment: Speci men Type: BLOOD SPECIMENOrdering Facility: [facility] Address: [address] [place] [address] Performed By: #### 5 7021-8 ####MTMAYURI [facility] RICARDO LABCLIA [id number] [place] [address] [employer] [place] MCHC (RBC) [Mass/Vol] 33.3 g/dL Normal 30.5-36.0 [facility] Comment on above: Order Comment: Speci men Type: BLOOD SPECIMENOrdering Facility: [facility] Address: [address] [place] [address] Performed By: #### 5 7021-8 ####[facility] LABCLIA [id number] [place] [address] [facility] MCV (RBC) [Entitic vol] 94.4 fL Normal 80.0-100.0 [facility] Comment on above: Order Comment: Speci men Type: BLOOD SPECIMENOrdering Facility: [facility] Address: [address] [place] [address] Performed By: #### 5 7021-8 ####[facility] LABCLIA [id number] [place] [address] [place] Monocytes (Bld) [#/Vol] 0.66 10*3/uL Normal <0.87 [facility] Comment on above: Order Comment: Speci men Type: BLOOD SPECIMENOrdering Facility: [facility] Address: [address] [place] [address] Performed By: #### 5 7021-8 ####[facility] LABCLIA [id number] [place] [address] [place] Monocytes/100 WBC (Bld) 9.2 % Normal [facility] Comment on above: Order Comment: Speci men Type: BLOOD SPECIMENOrdering Facility: [facility] Address: [address] [place] [address] Performed By: #### 5 7021-8 ####[facility] LABCLIA [id number] [place] [address] [place] Neutrophils (Bld) [#/Vol] 4.38 10*3/uL Normal 1.45-7.50 [facility] Comment on above: Order Comment: Speci men Type: BLOOD SPECIMENOrdering Facility: [facility] Address: [address] [place] [address] Performed By: #### 5 7021-8 ####[facility] LABCLIA [id number] [place] [address] [place] Neutrophils/100 WBC (Bld) 61.3 % Normal [facility] Comment on above: Order Comment: Speci men Type: BLOOD SPECIMENOrdering Facility: [facility] Address: [address] [place] [address] Performed By: #### 5 7021-8 ####[facility] LABCLIA [id number] [place] [address] [place] Nucleated RBC (Bld) [#/Vol] Normal [facility] Comment on above: Order Comment: Speci men Type: BLOOD SPECIMENOrdering Facility: [facility] Address: [address] [place] [address] Performed By: #### 5 7021-8 ####[facility] LABCLIA [id number] [place] [address] [place] Nucleated RBC/100 WBC (Bld) [Ratio] Normal [facility] Comment on above: Order Comment: Speci men Type: BLOOD SPECIMENOrdering Facility: [facility] Address: [address] [place] [address] Performed By: #### 5 7021-8 ####MTMAYURI MURRAY LABCLIA [id number] [place] [address] [place] Platelet mean volume (Bld) [Entitic vol] 10.1 fL Normal 9.0-12.7 [facility] Comment on above: Order Comment: Speci men Type: BLOOD SPECIMENOrdering Facility: [facility] Address: [address] [place] [address] Performed By: #### 5 7021-8 ####MTMAYURI MURRAY LABCLIA [id number] [place] [address] [place] Platelets (Bld) [#/Vol] 179 10*3/uL Normal 150-400 [facility] Comment on above: Order Comment: Speci men Type: BLOOD SPECIMENOrdering Facility: [facility] Address: [address] [place] [address] Performed By: #### 5 7021-8 ####[facility] LABCLIA [id number] [place] [address] [place] RBC (Bld) [#/Vol] 4.84 10*6/uL Normal 4.20-6.00 [facility] Comment on above: Order Comment: Speci men Type: BLOOD SPECIMENOrdering Facility: [facility] Address: [address] [place] [address] Performed By: #### 5 7021-8 ####[facility] LABCLIA [id number] [place] [address] [place] WBC (Bld) [#/Vol] 7.14 10*3/uL Normal 3.70-11.00 [facility] Comment on above: Order Comment: Speci men Type: BLOOD SPECIMENOrdering Facility: [facility] Address: [address] [place] [address] Performed By: #### 5 7021-8 ####[facility] LABCLIA [id number] [place] [address] [place] CT ABD/PEL W IVCONon 024 CT ABD/PEL W IVCON * * *Final Report* * * DATE OF EXAM: Dec 22 2023 2:41PM [facility] 0530 - CT ABD/PEL W IVCON / [...] or necrosis. No measurable collection. Hepatic steatosis. Electrical Engineering Manager: MORA Transcribe Date/Time: Dec 22 2023 3:01P Dictated by : EVI BROOKS MD This examination was interpreted and the report reviewed and electronically signed by: EVI BROOKS MD on Dec 22 2023 3:16PM EST [id number] Normal [facility] Comprehensive metabolic 2000 panelon 12-22-2023 Albumin [Mass/Vol] 4.8 g/dL Normal 3.9-4.9 [facility] Comment on above: Order Comment: Speci men Type: BLOOD SPECIMENOrdering Facility: [facility] Address: [address] [place] [address] Performed By: #### 5 643-2, 25331-5, 3040-3 ####[facility] LABCLIA [id number] [place] [address] [place] ALP [Catalytic activity/Vol] 149 U/L High 38-113 [facility] Comment on above: Order Comment: Speci men Type: BLOOD SPECIMENOrdering Facility: [facility] Address: [address] [place] [address] Performed By: #### 5 643-2, 95213-8, 3040-3 ####[facility] LABCLIA [id number] [place] [address] [place] ALT [Catalytic activity/Vol] 200 U/L High 10-54 [facility] Comment on above: Order Comment: Speci men Type: BLOOD SPECIMENOrdering Facility: [facility] Address: [address] [place] [address] Performed By: #### 5 643-2, 30206-5, 3040-3 ####[facility] GREEN LABCLIA [id number] [place] [address] [place] Anion gap [Moles/Vol] 11 mmol/L Normal 8-15 [facility] Comment on above: Order Comment: Speci men Type: BLOOD SPECIMENOrdering Facility: [facility] Address: [address] [place] [address] Performed By: #### 5 643-2, 46357-7, 0-3 ####[facility] LABCLIA [id number] [place] AST [Catalytic activity/Vol] 187 U/L High 14-40 [facility] Comment on above: Order Comment: Speci men Type: BLOOD SPECIMENOrdering Facility: [facility] Address: [address] [place] [address] Performed By: #### 5 643-2, 02588-6, 3039-3 ####MTMAYURI [facility] LABCLIA [id number] [place] [address] [place] Bilirubin [Mass/Vol] 1.5 mg/dL High 0.2-1.3 [facility] Comment on above: Order Comment: Speci men Type: BLOOD SPECIMENOrdering Facility: [facility] Address: [address] [place] [address] Result Comment: Use of this assay is not recommended for patients undergoing treatment with eltrombopag due to the potential for falsely elevated results. Performed By: #### 5 643-2, 85334-7, 0-3 ####[facility] LABCLIA [id number] [place] [address] [place] Calcium [Mass/Vol] 9.9 mg/dL Normal 8.5-10.2 [facility] Comment on above: Order Comment: Speci men Type: BLOOD SPECIMENOrdering Facility: [facility] Address: [address] [place] [address] Performed By: #### 5 643-2, 09292-7, 3040-3 ####[facility] LABCLIA [id number] [place] [address] [place] Chloride [Moles/Vol] 101 mmol/L Normal 98-107 [facility] Comment on above: Order Comment: Speci men Type: BLOOD SPECIMENOrdering Facility: [facility] Address: [address] [place] [address] Performed By: #### 5 643-2, 55991-7, 3040-3 ####[facility] LABCLIA [id number] [place] [address] [place] CO2 [Moles/Vol] 23 mmol/L Normal 22-30 [facility] Comment on above: Order Comment: Speci men Type: BLOOD SPECIMENOrdering Facility: [facility] Address: [address] [place] [address] Performed By: #### 5 643-2, 72326-3, 3040-3 ####[facility] LABCLIA [id number] [place] [address] [place] Creatinine [Mass/Vol] 0.67 mg/dL Low 0.73-1.22 [facility] Comment on above: Order Comment: Speci men Type: BLOOD SPECIMENOrdering Facility: [facility] Address: [address] [place] [address] Result Comment: Use of this assay is not recommended for patients undergoing treatment with phenindione, due to the potential for falsely depressed results. Performed By: #### 5 643-2, 28853-5, 3040-3 ####[facility] [id number] [place] [address] [place] Creatinine and Glomerular filtration rate.predicted panel (S/P/Bld) 123 mL/min/1.73m??? Normal >=60 [facility] Comment on above: Order Comment: Lakshmi espinoza Type: BLOOD SPECIMENOrdering Facility: [facility] Address: [address] [place] [address] Result Comment: Oliva mated Glomerular Filtration Rate [...] actual GFR. Performed By: #### 5 643-2, 45469-6, 3040-3 ####[facility] [id number] [place] [address] [place] Glucose [Mass/Vol] 113 mg/dL High 74-99 [facility] Comment on above: Order Comment: Lakshmi espinoza Type: BLOOD SPECIMENOrdering Facility: [facility] Address: [address] [place] [address] Result Comment: The [place] Diabetes Association (ADA) provides guidance for cutoff [...] Standards of Medical Care in Diabetes 2016, [place] [employer] Association. Diabetes Care. 2016.39(Suppl 1). Performed By: #### 5 643-2, 44772-0, 3040-3 ####[facility] LABIA [id number] [place] [address] [place] Potassium [Moles/Vol] 4.2 mmol/L Normal 3.7-5.1 [facility] Comment on above: Order Comment: Speci men Type: BLOOD SPECIMENOrdering Facility: [facility] Address: [address] [place] [address] Performed By: #### 5 643-2, 91853-0, 3040-3 ####[facility] LABCLIA [id number] [place] [address] [place] Protein [Mass/Vol] 8.2 g/dL High 6.3-8.0 [facility] Comment on above: Order Comment: Speci men Type: BLOOD SPECIMENOrdering Facility: [facility] Address: [address] [place] [address] Performed By: #### 5 643-2, 73360-2, 0-3 ####[facility] LABCLIA [id number] [place] [address] [place] Sodium [Moles/Vol] 135 mmol/L Low 136-144 [facility] Comment on above: Order Comment: Speci men Type: BLOOD SPECIMENOrdering Facility: [facility] Address: [address] [place] [address] Performed By: #### 5 643-2, 73597-5, 0-3 ####[facility] LABCLIA [id number] [place] [address] [place] Urea nitrogen [Mass/Vol] 7 mg/dL Low 9-24 [facility] Comment on above: Order Comment: Speci men Type: BLOOD SPECIMENOrdering Facility: [facility] Address: [address] [place] [address] Performed By: #### 5 643-2, 59303-6, 0-3 ####[facility]isticomMAY[facility] LABCLIA [id number] [place] [address] [place] ED NOTEon 12-22-2023 ED NOTE HNO ID: [id number] Author: WANDA HODGSON, JOSE GUADALUPE Service: Emergency Medicine Author Type: Registered Nurse Type: ED Notes Filed: 12/22/2023 13:29 Note Text: States pain started last night, middle upper abdomen; worse with laying down. Admits to hx pancreatitis; states feels the same as the last time he had a flare up of pancreatitis. Normal [facility] ED NOTE HNO ID: [id number] Author: EDWIGE PERALES, JOSE GUADALUPE Service: Emergency Medicine Author Type: Registered Nurse Type: ED Notes Filed: 12/22/2023 12:31 Note Text: Patient began with abdominal pain last night. Pt states he has been vomiting with abdominal pain . Normal [facility] ED PROV NOTEon 12-22-2023 ED PROV NOTE HNO ID: [id number] Author: HITESH GARZA DO Service: Emergency Medicine [...] the hospital for about 11 days at [facility]. He states he has not had anything [...] changes i (more content not included)... Normal [facility] Ethanol SerPl-mCncon 024 Ethanol [Mass/Vol] mg/dL Normal <11 [facility] Comment on above: Order Comment: Lakshmi espinoza Type: BLOOD SPECIMEN [facility] Address: [address] [place] [address] Performed By: #### 5 643-2, 94933-2, 3040-3 #### [facility] CLIA [id number] STATES OF [facility] Lipase SerPl-cCncon 12-22-19 24 Lipase [Catalytic activity/Vol] 70 U/L High 16-61 [facility] Comment on above: Order Comment: Lakshmi espinoza Type: BLOOD SPECIMENOrdering Facility: [facility] Address: [address] [place] [address] Performed By: #### 5 643-2, 56715-9, 3040-3 ####[facility] LABCLIA [id number] [place] [address] [employer] [place] No Panel InformationOrdered By: Mukund Tracy on 12-17-2023 Case Report Surgical Pathology Case: [id number] Authorizing Provider: Hari Kline MD Collected: 12/14/2023 1350 Ordering Location: [facility] Endoscopy Received: 12/14/2023 1450 Pathologist: Mukund Tracy Jr., MD Specimens: A) - Gastric Antrum, gastritis, r/o h. pylori B) - Esophagus, Distal, esophagitis [facility] Phone: Clinical Information n5cmeFRqBLBbaGGeLMi wM1x oxvKhIFJgzSIrN7XuoiwyOR oiVJ3zAI4oqExwyRAnqOOaX TPhBmLjr7fdn421mJHbo2mi ZVQVRTpdYGDRXYm8iWysD69 bj8G3TqovU1ipVPGwIMuxCY WcNLmtfLYsEKe1SLWglPThv zTiGnLxJPUxqCKzvGF7ZBUn GK2ztvmpCRtqFCmvPOJlzwY 3HONbmPRlO6PjLYIfGI9mrc ztVTI1TOkbKEVhGOC1TpSjY CMil8Tcing6PjJdcIUiYWda bGFpblxmczIwXGNmMSBIZW1 hgZKhLFBrbmIaSsU8xhmqc8 eqGUT6dN5ez2m5OV6xGukhY aSlP1rASA0gLL3ITE5yP4Wz ICBccGFyfQ== [facility] Phone: Disclaimer a5agfUAlCJXnrMVhLbXp MDA uRARaq1svOOKdyJVyTyLfJb NcZnRuYmpcdWMxXGRlZmYwe 6rdr651qNBzz9vzPKEkTfT9 jQYoATIoH83bSSRWN144CYH pDMlaf3etw3QgCCHjuMEfa6 Z4KEKYTFdxQQGBFVm1bXrmK 35ou6C9VdgkG8kcNTTfRYCq N3PwTE8mSLMkAfs6LGF4EIX 5XHPnSVIeR7PoKH7qBQDosE YtZAm0r7qvcDlzJNDdYRG6q 9wxDOxyugMjTY6rdg9vpPh4 d7tpazUwZAVuXKKabOPWOJK yV1SovZlhJz0suUn1vTnkYs dnXZO8Svt3PY3eih27hxa7m VusNOYwrfhxNjH5OBqvLJHo hypePJd5UNxcXDSipHJ3KZR vcQBwC1VtRBHjND3rhot6YW T5KHwnUDKvBqP8ICCyxGGkC NGrmDuyFSfxn670NJR7MkZd KL7zQ0Uiz6A2oK6hrEOuWIY beDNqUpMdTEVsgk8wnKCqAV zde4ZzGBE6cvN5hHOnkETzF ELaSJ99Wtgbs2SxBgalVNJ6 UYSmefQca7Axb8jfJgJrgrX zK9sqN2MvIIFfXYPsBAXrAz TxcgWnk0Eay4NhmJEfmXp0t 9dpLVPoVPTssSdsp5aiVLA1 GDFtP6E4nJRmk0juUXzrSTK ztKP1dlS1CSYooBGjQ1VxbO 5rDRZbYO1mntx9r3goDDL4T CmxUCJwTyK2ebH7UDDquABf WOEaeIkpXFnux893KFT9DtX eEFTqh1DdA8UhcDlnK88ubC xlS39rHPBahUadrF7yfIota V6vAwSrMnYpSSskgXgfaJRw tdtkVEvkswV7LYdaumkpFFD lEXmtH2zwJtUnINEysGjtKH kll2AmFQXlSRUmCANcVWrlH 6tliI4ksapxIEtrUNKmjQlq p4akKlUaeNE4MN7pnePhSII xvNoveoU4zmGpvTsioY3mpQ 5bdFyewJ2iqAEfmXK2qiwxL GluIHNpdHUgaHlicmlkaXph sWwwqmixfQ1hPAL0qSJaJQS 5qMTsDEKkDZFvZSZaiV33vo 5kdJWqmhIhS0CgX3NrmBIge SlxGuwgpFYmgOPoUp9qrYCs TP4kBQSscEAdH8QhOG2xAEL hclxwYXIgVGhlIHVzZSBvZi XpaaFav0BuyY9iJYXtPRDjN N87orKodjO0pKUqZCVngvWw dGVzdHMgaXMgcmVndWxhdGV nZWAfCRHaFPKzISv5qPSvw5 PlA2kyrMYptuCrU5UfxALuN LTSIA0bRIoct8OwsVMutXQp e7FrXRAaOHPztK2cZGCjAP8 hTQBoWOgpIYQgziPukt5uai IqYGXlQCJeB3AdnmycmOwmx vYqYLGpgw8vgqUuZPH6YTYu ZSBjbGluaWNhbCBsYWJvcmF 2i6WiOLXlc9WtZ1XjeHYcQV TweEVxKPT0c5EudK8bTJenq HYjDVIsJP6wbVVqTPAtOIMs ZWFyZWQgYnkgdGhlIFVTIEZ cl3DpLQ8yNNWzkQhsYSTxjB 8lp4DfTDJqq91lBGQNDFjiO FRoZSBGREEgaGFzIGRldGVy bWluZWQgdGhhdCBzdWNoIGN jJEMoYZ2rYTRhqeKfiUAkd1 EwwISjswDus7AjlcRnEXSmQ YW7RbTrgGFlSWWgypPBgDsk oA3rgT6ug9CgwF3hFIigaeA daVNyQi5oiWWqFM6kKVQcnk FmZmluIGVtYmVkZGVkIHRpc 2N4EQ1aUINqex7yfndaeHMe kL8lnKZadcUaAZ9sWD6sJ9C 0uFLjSDTnzmPll1biMTe9hG AnSGDpqMJagGZmFkcfGMA2Y KBnAOE1rbVhkrTeOZQtaCxz mHI0oCLyZGXuINXcQPSxAJ9 0J5Urf2QmK2djPX35MJTuEP FeWRBfsjUdf8xzVRLhf1efY OYqyYHfD7CoOLPqtHMctyzv JhDoFPZ4ASTwORA7eDFwHTK pU9MoxYDatXIkiK72YD1tjP A0QS4eUTW7XMvjaD0lYwBYz X87hm1rtAW9u1GpQO2yC7Zj PVKjl8Q9mhLdIXRsFK3ilIS iZWVuIHZhbGlkYXRlZCBvbi HdGSYiqMQhByqdCPM1gIAav TSnDrMESDZ9rRJiLMDck5Me ZCBiZSBpbnRlcnByZXRlZCB 7lEUhETNhkBDje04iF9c8UD 9dyOxaHMVrlSKnGHPve1Xux ZDelCd4xZNlCvUwCCsfRMLx PQvnrSg1eLH6BU6vPWFeC1U tR0zkbVCnCFUhYSEprYFygt 5ccGFyfQ== [facility] Work Phone: Gross Description w9yqfVJyNYGuvUQaVZma M1x fkuKeWXSbnXWbZ5JyqxwqYG vzJT0dTT2ekDpdoRIxoWEwB XAoKpYma7xtt329wHFwp6qq VFEBNRxuPOIQALh9pUwnP08 mu9Q0LmegM91tgKObCBJ2ZO ExPTGkdBPdDWMoYXV1PQDhe KOvP7umQIPpFG0jacdbKSud CMxbEZJmuRP0NRHafDHaY7K hJOFbZQzpSAOqmxy4QpWjJd 9vdGVyeTcyMFxwYXJkXHBsY ZzqRMJqIjQbLE2dwSHdRQNn M4YizqFkDBpfTGCiok9zaUe uIGxhYmVsZWQgICJhbnRydW 0gYLUuDYB6ksZ9MG3jbIhxx kA6iFElwURdPiYmH36yyjSa IMSiYKJpmMEeu8MaJLVwGuJ hPF5pWZIwS60aOKBTpSYoh5 AvZ9ysSE7scOWyBF69lTMqb Wuag3LpvTj6hCAyLMpoIE6b WEUkVWGyQSZ1ER5ylQFfQTF ttuJLXzs0XVGcCtZgRNu4XK QsdQ8xMs0clCPtxH1bwZGbK CbxSKZvZzIzi2AnvDJre46a xCLitBQxPHUrLOM4lHFeOMT 9CY8pjWrtpeH5nPFfePHgVt LgG10znkOdEJAwylaaeerbc M8qz2b2HCVnaz2rKQLvDqLs HGUyRPEtmC3nKAErFPYkaZY laU2afuLxvkQpxbWythMfrU XgtXOjpBQ0BIRoaJ0wm58hH YKwk1CcbIAqIcUdQDSgco1= [employer] Work Phone: Pathologist Interpretation Location [facility], [address] [place] [address], [facility] [address], CLIA: [id number]; Joint Commission: HCO [id number]; CAP: [id number] [employer] Phone: Pathology report final diagnosis Narrative n2priBEwMXCtbHTrIVwnC8j mmbIyXUQbwACwT9UnkhheYQ xsCZ7tGZ8itYbdrOHczRNeO KDbCrWvs0zdz935pSKwb5bn GKTRJJacHJVHYVl5mVytW81 ko2R1EtqlT99kxWPmYRW7NZ YhCBOpsWMoMWSfCTX9YGHcv NQfN0cyUXLeJS1palgrNIua ETzcQHGkuNL9NVXoaODfA2Q uQTBkVColCTDqkbd2NhCuHp 9vdGVyeTcyMFxwYXJkXHBsY PwlYOSnRiVjRM3gLFLZU24B W6meIRLPUIHOKIphKuvIRXG ZXGVuZGFzaCBNSUxEIFRPIE 6PEBFGVYSGSFDOZd1MUOAvZ LvREAIZZLLPVFgCK5WNPEEQ GvSWUsKqMN1RGUZIYZ0FENQ ALQCBXKyVC4bMODCxjahmES OuX49myMUuwCpvPS6fzJ5aa T3sdLgoiQ6dgAWmoBKofJOk aQQilkRua8JgIMAsyRPzKoK spLOrXUG7uZ1mvVYzqqZsAK phvSf0EY1uUWUgYYoftPCxd 5nyy6WtO7pbwWrpEVoem1Zp pP0hBy6dHWQ7LsHltbGjFUv mkEs5NF1pPR4sN2L7xKYnGT DxtaKoyHHeqJOdzXUnx8Cva VGvmRraHX9rjU2qtNVdAZEz ixFXRxIbSTTHZDnNE1YNNWL BXPUTJBufQIDIT1GYGXscsf Nyd9zfP6ZMOX4OSGQxJOIAU 1NBIFdJVEggRVBJVEhFTElB ZGYAZPSQHcYJAX1WXQVCWDU FA5ACCYJNYiSJYX7YTLXOB2 5njEIcBONngqOMn95hNC68A oVAdS62sy9uuFJ4f7XxZX2n W1LhBBA0YZrxrzPmb8WaKWB SZTRfQE3xDIfEGl7qWNYbBV NqETjglKg7WW6uZRIFEsVfl YQhswCbYc9tGXK6wbtcjFYs lhkjggtbzTFsXAYxSJ4fJ6Y 0aXZlLiAgTmVnYXRpdmUgZm 3zGDlefJSopLboYJocjOX0W QTzPUZyBDugVXmsvNapo4pt HVTzsfNgRTdaX52pkbE2Zdc wYXJ9 [facility] Work Phone: [facility] [employer] Work Phone: Hemoglobin (Bld) [Mass/Vol]o n 12-16-2023 Hematocrit (Bld) [Volume fraction] 37.4 % Low 40.0 - 52.0 % [facility] Interpretation and review of laboratory results Abnormal [facility] Hepatic function 2000 panelo n 12-16-2023 Albumin [Mass/Vol] 3.9 g/dL 3.5 - 5.0 g/dL [facility] ALP [Catalytic activity/Vol] 111 U/L 38 - 126 U/L [facility] ALT [Catalytic activity/Vol] 80 U/L High 0 - 49 U/L [facility] AST [Catalytic activity/Vol] 84 U/L High 15 - 46 U/L [facility] Bilirubin [Mass/Vol] 1 mg/dL 0.2 - 1 .3 mg/dL [facility] Bilirubin.conjugated [Mass/Vol] 0 mg/dL 0.0 - 0.3 mg/dL [facility] Interpretation and review of laboratory results Abnormal [facility] Protein [Mass/Vol] 6.7 g/dL 6.3 - 8.2 g/dL [facility] Laboratory - Hematology and Cell countson 12-16-2023 Hemoglobin (Bld) [Mass/Vol] 12.1 g/dL Low 13.0 - 18.0 g/dL [facility] CBC panel Auto (Bld)Ordered By: Bandar oJe on 12-15-2023 Erythrocyte distribution width (RBC) [Ratio] 13.9 % 11.5 - 15.0 % [facility] Hematocrit (Bld) [Volume fraction] 34.1 % Low 40.0 - 52.0 % [facility] Hemoglobin (Bld) [Mass/Vol] 11.3 g/dL Low 13.0 - 18.0 g/dL [facility] Interpretation and review of laboratory results Abnormal [facility] MCH (RBC) [Entitic mass] 31 pg 26.0 - 34.0 pg [facility] MCHC (RBC) [Mass/Vol] 33.1 % 30.5 - 36.0 % [facility] MCV (RBC) [Entitic vol] 93.4 fL 77.0 - 99.0 fL [facility] Platelet mean volume (Bld) [Entitic vol] 10.1 fL 9.0 - 12.7 fL [facility] Platelets (Bld) [#/Vol] 246 10*3/uL 140 - 440 10*3/uL [facility] RBC (Bld) [#/Vol] 3.65 10*6/uL Low 4.40 - 5.9 0 10*6/uL [facility] WBC (Bld) [#/Vol] 3.9 10*3/uL 3.6 - 10.7 10*3/uL [facility] Comprehensive metabolic 1998 panelOrdered By: Megha Lopez on 12-15-2023 Albumin [Mass/Vol] 3.7 g/dL 3.5 - 5.0 g/dL [facility] ALP [Catalytic activity/Vol] 116 U/L 38 - 126 U/L [facility] ALT [Catalytic activity/Vol] 81 U/L High 0 - 49 U/L [facility] Anion gap [Moles/Vol] 10 mmol/L 3 - 13 mmol/L [facility] AST [Catalytic activity/Vol] 70 U/L High 15 - 46 U/L [facility] Bilirubin [Mass/Vol] 1.3 mg/dL 0.2 - 1 .3 mg/dL [facility] Calcium [Mass/Vol] 9.1 mg/dL 8.4 - 10. 4 mg/dL [facility] Chloride [Moles/Vol] 104 mmol/L 98 - 10 7 mmol/L [facility] CO2 [Moles/Vol] 22 mmol/L 22 - 30 mmol/L [facility] Creatinine [Mass/Vol] 0.61 mg/dL Low 0.66 - 1.25 mg/dL [facility] GFR/1.73 sq M.predicted (S/P/Bld) [Vol rate/Area] - PINF [facility] Comment on above: Calculation based on the Chronic Kidney Disease Epidemiology Collaboration (CKD-EPI) equation refit without adjustment for race Glucose [Mass/Vol] 101 mg/dL High 70 - 100 mg/dL [facility] Interpretation and review of laboratory results Abnormal [facility] Potassium [Moles/Vol] 3.5 mmol/L 3.5 - 5.1 mmol/L [facility] Protein [Mass/Vol] 6.5 g/dL 6.3 - 8.2 g/dL [facility] Sodium [Moles/Vol] 136 mmol/L 135 - 145 mmol/L [facility] Urea nitrogen [Mass/Vol] 4 mg/dL Low 9 - 20 mg/dL [facility] Hemoglobin (Bld) [Mass/Vol]o n 12-14-2023 Hematocrit (Bld) [Volume fraction] 38.1 % Low 40.0 - 52.0 % [facility] Interpretation and review of laboratory results Abnormal [facility] Laboratory - Hematology and Cell countson 12-14-2023 Hemoglobin (Bld) [Mass/Vol] 12.6 g/dL Low 13.0 - 18.0 g/dL [facility] XR Chest Single viewon 12-13 Lungs clear with no acute infiltrate or effusion. Report Dictated on Electronically Signed By: Argelia Mathias MD Electronically Signed Date/Time: 12/14/2023 10:04 AM [facility] [employer] Patient Name: RORO LCAIRE : 1985 Exam Date/Time: 12/14/2023 09:59 Procedure: XR CHEST 1 VIEW Ordering Provider: ESPOSITO VENKATESH Reason For Exam: Cough CLINICAL INDICATION: Cough COMPARISON: 11/19/2023 TECHNIQUE: Single portable AP radiograph of the chest. FINDINGS: LUNGS/PLEURA:Clear with no acute infiltrate or effusion. No pneumothorax. The trachea is midline. MEDIASTINUM:Heart size and mediastinal contours are normal. VASCULARITY: Normal BONES:Unremarkable SUPPORT LINES: None OTHER: [facility] [employer] Alyse Mathias MD - 12/14/2023 Patient Name: RORO VALDIVIA : 1985 [facility]#: [id number] Exam Date/Time: 12/14/2023 09:59 Procedure: XR CHEST [...] Electronically Signed Date/Time: 12/14/2023 10:04 AM EST [facility] Radiology Study observation (narrative) [facility] XR Chest Single viewOrdered By: Alyse Mathias on 12-14-2023 [facility] Work Phone: Basic metabolic 1998 panelon 12-13-2023 Anion gap [Moles/Vol] 16 mmol/L High 3 - 13 mmol/L [facility] Calcium [Mass/Vol] 8.9 mg/dL 8.4 - 10. 4 mg/dL [facility] Chloride [Moles/Vol] 106 mmol/L 98 - 10 7 mmol/L [facility] CO2 [Moles/Vol] 22 mmol/L 22 - 30 mmol/L [facility] Creatinine [Mass/Vol] 0.71 mg/dL 0.66 - 1.25 mg/dL [facility] GFR/1.73 sq M.predicted (S/P/Bld) [Vol rate/Area] - PINF [facility] Comment on above: Calculation based on the Chronic Kidney Disease Epidemiology Collaboration (CKD-EPI) equation refit without adjustment for race Glucose [Mass/Vol] 110 mg/dL High 70 - 100 mg/dL [facility] Interpretation and review of laboratory results Abnormal [facility] Potassium [Moles/Vol] 3.9 mmol/L 3.5 - 5.1 mmol/L [facility] Sodium [Moles/Vol] 145 mmol/L 135 - 145 mmol/L [facility] Urea nitrogen [Mass/Vol] 6 mg/dL Low 9 - 20 mg/dL [facility] CBC W Auto Differential pane l (Bld)Ordered By: Brianda Feliciano on 12-13-2023 Erythrocyte distribution width (RBC) [Ratio] 14.4 % 11.5 - 15.0 % [facility] Hematocrit (Bld) [Volume fraction] 43.7 % 40.0 - 52.0 % [facility] Hemoglobin (Bld) [Mass/Vol] 14.3 g/dL 13.0 - 18.0 g/dL [facility] Interpretation and review of laboratory results Abnormal [facility] MCH (RBC) [Entitic mass] 30.8 pg 26.0 - 34.0 pg [facility] MCHC (RBC) [Mass/Vol] 32.7 % 30.5 - 36.0 % [facility] MCV (RBC) [Entitic vol] 94 fL 77.0 - 99.0 fL [facility] Platelet mean volume (Bld) [Entitic vol] 10.2 fL 9.0 - 12.7 fL [facility] Platelets (Bld) [#/Vol] 423 10*3/uL 140 - 440 10*3/uL [facility] RBC (Bld) [#/Vol] 4.65 10*6/uL 4.40 - 5.9 0 10*6/uL [facility] WBC (Bld) [#/Vol] 12.1 10*3/uL High 3.6 - 10.7 10*3/uL [facility] Comprehensive metabolic 1998 panelon 12-13-2023 Albumin [Mass/Vol] 4.9 g/dL 3.5 - 5.0 g/dL [facility] ALP [Catalytic activity/Vol] 171 U/L High 38 - 126 U/L [facility] ALT [Catalytic activity/Vol] 141 U/L High 0 - 49 U/L [facility] Anion gap [Moles/Vol] 23 mmol/L High 3 - 13 mmol/L [facility] AST [Catalytic activity/Vol] 186 U/L High 15 - 46 U/L [facility] Bilirubin [Mass/Vol] 0.9 mg/dL 0.2 - 1 .3 mg/dL [facility] Calcium [Mass/Vol] 9.5 mg/dL 8.4 - 10. 4 mg/dL [facility] Chloride [Moles/Vol] 103 mmol/L 98 - 10 7 mmol/L [facility] CO2 [Moles/Vol] 20 mmol/L Low 22 - 30 mmol/L [facility] Creatinine [Mass/Vol] 0.6 mg/dL Low 0.66 - 1.25 mg/dL [facility] GFR/1.73 sq M.predicted (S/P/Bld) [Vol rate/Area] - PINF [facility] Comment on above: Calculation based on the Chronic Kidney Disease Epidemiology Collaboration (CKD-EPI) equation refit without adjustment for race Glucose [Mass/Vol] 116 mg/dL High 70 - 100 mg/dL [facility] Interpretation and review of laboratory results Abnormal [facility] Potassium [Moles/Vol] 4 mmol/L 3.5 - 5.1 mmol/L [facility] Protein [Mass/Vol] 8.3 g/dL High 6.3 - 8.2 g/dL [facility] Sodium [Moles/Vol] 145 mmol/L 135 - 145 mmol/L [facility] Urea nitrogen [Mass/Vol] 5 mg/dL Low 9 - 20 mg/dL [facility] Ethanol (Bld) [Mass/Vol]Orde red By: Dari Paul on 12-13-2023 Ethanol [Mass/Vol] 0.435 g/dL Critically high 0.000 - 0.010 g/dL [facility] Interpretation and review of laboratory results Abnormal [facility] Laboratory - Chemistry and C hemistry - challengeon 12-13-2023 Lipase [Catalytic activity/Vol] 78 U/L 23 - 300 U/L [facility] Laboratory - Drug toxicology Ordered By: Casey Sloan on 12-13-2023 Amphetamines Screen method >1000 ng/mL Ql (U) Negative [facility] Barbiturates Screen method >200 ng/mL Ql (U) Negative [facility] Benzodiazepines Ql (U) Negative [facility] Methadone Screen Ql (U) Negative [facility] Opiates Screen Ql (U) Negative [facility] oxyCODONE Ql (U) Negative [facility] Phencyclidine Ql (U) Negative [facility] Laboratory - Microbiology an d Antimicrobial susceptibilityOrdered By: Lisa England on 12-13-2023 SARS-CoV-2 (COVID-19) Ag IA.rapid Ql (Resp) Negative Negative [facility] Comment on above: A negative result do es not rule out the possibility of SARS-CoV-2 infection. NAAT-based methods should be considered for symptomatic patients presenting greater than seven days after onset of symptoms. Method: Lateral flow immunoassay. Fact sheets for healthcare providers and patients can be found at the following sites: https://www.[employer].gov/media/098662/download https://www.[employer].gov/media/475896/download Lipase [Catalytic activity/V ol]on 12-13-2023 Interpretation and review of laboratory results Normal [facility] [employer] [facility] [employer] Manual differential performe d Ql (Bld)Ordered By: Maria Isabel Auguste on 12-13-2023 Basophils (Bld) [#/Vol] 0.1 10*3/uL 0.0 - 0.2 10*3/uL [facility] [employer] Basophils Manual 1 [facility] [employer] Basophils/100 WBC (Bld) 1 % 0 - 2 % [facility] [employer] Cells Counted Total (Bld) [#] 100 {cells} [facility] [employer] Differential Method Manual differential performed [facility] [employer] Interpretation and review of laboratory results Abnormal [facility] [employer] Leukocyte morphology finding Nom (Bld) Normal [facility] [employer] Lymphocytes (Bld) [#/Vol] 8.1 10*3/uL High 1.0 - 4.3 10*3/uL [facility] [employer] Lymphocytes Manual 67 [facility] [employer] Lymphocytes/100 WBC (Bld) 67 % High 15 - 45 % [facility] [employer] Monocytes (Bld) [#/Vol] 0.4 10*3/uL 0.0 - 0.9 10*3/uL [facility] [employer] Monocytes Manual 3 [facility] [employer] Monocytes/100 WBC (Bld) 3 % Low 5 - 13 % [facility] [employer] Neutrophils (Bld) [#/Vol] 3.5 10*3/uL 1.8 - 7.0 10*3/uL [facility] [employer] Neutrophils Manual 29 [facility] [employer] Platelet morphology finding Nom (Bld) Normal [facility] [employer] RBC morphology finding Nom (Bld) Normal [facility] [employer] Segmented neutrophils/100 WBC (Bld) 29 % Low 38 - 82 % [facility] [employer] WBC corrected for nucl RBC (Bld) [#/Vol] 12.1 10*3/uL High 3.6 - 10.7 10*3/uL [facility] [employer] [facility] [employer] No Panel Informationon 12-12 P Lyman 53 degrees [facility] [employer] NE Interval 148 ms [facility] QRS Lyman -11 degrees [facility] QRSD Interval 97 ms [facility] QT Interval 373 ms [facility] QTC Interval 459 ms [facility] T Wave Lyman -5 degrees [facility] Sinus rhythm LVH by voltage Borderline T abnormalities, inferior leads Electronically Signed On 12-13-2023 13:12:41 EST by Idris Danielson CV Idris Galvan MD - 12/13/2023 IMPRESSION: Sinus rhythm LVH by voltage Borderline T abnormalities, inferior leads Electronically Signed On 12-13-2023 13:12:41 EST by Idris Danielson [facility] No Panel InformationOrdered By: Casey Sloan on 12-13-2023 COCAINE METAB. SCREEN Negative [facility] The expected value f or all of [...] is needed, request confirmation under separate order. [facility] SARS-CoV-2 (COVID-19) Ag IA. rapid Ql (Resp)Ordered By: Lisa England on 12-13-2023 Interpretation and review of laboratory results Normal [facility] Urinalysis complete panel (U )on 12-13-2023 Bacteria LM.HPF (Urine sed) [#/Area] Few Abnormal Negative /HPF [facility] Bilirubin Ql (U) Negative Negative mg/dL [facility] Clarity (U) Clear Clear [facility] Color (U) Light Yellow Lt. Yellow [facility] Epithelial cells.squamous LM.HPF (Urine sed) [#/Area] Negative [facility] Glucose Ql (U) Normal Normal (<70) mg/dL [facility] Hemoglobin Ql (U) 0.03 mg/dL Abnormal Negative [facility] Interpretation and review of laboratory results Abnormal [facility] Ketones (U) [Mass/Vol] Negative Negat chan mg/dL [facility] Leukocyte esterase Test strip Ql (U) Negative Negative Teofilo/uL [facility] Nitrite Ql (U) Negative Negative [facility] pH (U) 6.5 [pH] 5.0 - 8.0 pH [facility] Protein (U) [Mass/Vol] Negative Negat chan mg/dL [facility] RBC LM.HPF (Urine sed) [#/Area] 0-2 [facility] Specific gravity (U) [Rel density] 1.004 Low 1.005 - 1.030 [facility] Urobilinogen (U) [Mass/Vol] Normal Normal (0-1) mg/dL [facility] WBC LM.HPF (Urine sed) [#/Area] 0-2 [facility] Vital signson 12-13-2023 Heart rate 91 /min bpm [facility] CBC W Auto Differential pane l (Bld)on 11-28-2023 Basophils (Bld) [#/Vol] 0.1 10*3/uL 0.0 - 0.2 10*3/uL [facility] Basophils/100 WBC (Bld) 0.7 % 0.0 - 2.0 % [facility] Eosinophils (Bld) [#/Vol] 0.1 10*3/uL 0.0 - 0.5 10*3/uL [facility] Eosinophils/100 WBC (Bld) 1.2 % 0.0 - 6.0 % [facility] Erythrocyte distribution width (RBC) [Ratio] 16.0 % High 11.5 - 15.0 % [facility] Hematocrit (Bld) [Volume fraction] 35.1 % Low 40.0 - 52.0 % [facility] Hemoglobin (Bld) [Mass/Vol] 11.6 g/dL Low 13.0 - 18.0 g/dL [facility] Immature granulocytes (Bld) [#/Vol] 0.2 10*3/uL High NINF - 0.1 10*3/uL [facility] Immature granulocytes/100 WBC (Bld) 2.1 % High 0.0 - 2.0 % [facility] Interpretation and review of laboratory results Abnormal [facility] Lymphocytes (Bld) [#/Vol] 2.3 10*3/uL 1.0 - 4.3 10*3/uL [facility] Lymphocytes/100 WBC (Bld) 25.5 % 15.0 - 45.0 % [facility] MCH (RBC) [Entitic mass] 30.9 pg 26.0 - 34.0 pg [facility] MCHC (RBC) [Mass/Vol] 33.0 % 30.5 - 36.0 % [facility] MCV (RBC) [Entitic vol] 93.4 fL 77.0 - 99.0 fL [facility] Monocytes (Bld) [#/Vol] 0.6 10*3/uL 0.0 - 0.9 10*3/uL [facility] Monocytes/100 WBC (Bld) 6.9 % 5.0 - 13.0 % [facility] Neutrophils (Bld) [#/Vol] 5.6 10*3/uL 1.8 - 7.5 10*3/uL [facility] Neutrophils/100 WBC (Bld) 63.6 % 38.0 - 82.0 % [facility] Nucleated RBC/100 WBC (Bld) [Ratio] 0.0 % [facility] Platelet mean volume (Bld) [Entitic vol] 10.0 fL 9.0 - 12.7 fL [facility] Platelets (Bld) [#/Vol] 340 10*3/uL 140 - 440 10*3/uL [facility] RBC (Bld) [#/Vol] 3.76 10*6/uL Low 4.40 - 5.9 0 10*6/uL [facility] WBC (Bld) [#/Vol] 8.9 10*3/uL 3.6 - 10.7 10*3/uL [facility] Comprehensive metabolic 1998 panelon 11-28-2023 Albumin [Mass/Vol] 3.6 g/dL 3.5 - 5.0 g/dL [facility] ALP [Catalytic activity/Vol] 240 U/L High 38 - 126 U/L [facility] ALT [Catalytic activity/Vol] 218 U/L High 0 - 49 U/L [facility] Anion gap [Moles/Vol] 9 mmol/L 3 - 13 mmol/L [facility] AST [Catalytic activity/Vol] 236 U/L High 15 - 46 U/L [facility] Bilirubin [Mass/Vol] 1.3 mg/dL 0.2 - 1 .3 mg/dL [facility] Calcium [Mass/Vol] 8.6 mg/dL 8.4 - 10. 4 mg/dL [facility] Chloride [Moles/Vol] 104 mmol/L 98 - 10 7 mmol/L [facility] CO2 [Moles/Vol] 21 mmol/L Low 22 - 30 mmol/L [facility] Creatinine [Mass/Vol] 0.46 mg/dL Low 0.66 - 1.25 mg/dL [facility] GFR/1.73 sq M.predicted (S/P/Bld) [Vol rate/Area] - PINF [facility] Glucose [Mass/Vol] 129 mg/dL High 70 - 100 mg/dL [facility] Interpretation and review of laboratory results Abnormal [facility] Potassium [Moles/Vol] 3.9 mmol/L 3.5 - 5.1 mmol/L [facility] Protein [Mass/Vol] 6.8 g/dL 6.3 - 8.2 g/dL [facility] Sodium [Moles/Vol] 135 mmol/L 135 - 145 mmol/L [facility] Urea nitrogen [Mass/Vol] 5 mg/dL Low 9 - 20 mg/dL [facility] Hepatic function 2000 panelo n 11-28-2023 Albumin [Mass/Vol] 3.8 g/dL 3.5 - 5.0 g/dL [facility] ALP [Catalytic activity/Vol] 249 U/L High 38 - 126 U/L [facility] ALT [Catalytic activity/Vol] 231 U/L High 0 - 49 U/L [facility] AST [Catalytic activity/Vol] 240 U/L High 15 - 46 U/L [facility] Bilirubin [Mass/Vol] 1.3 mg/dL 0.2 - 1 .3 mg/dL [facility] Bilirubin.conjugated [Mass/Vol] 0.0 mg/dL 0.0 - 0.3 mg/dL [facility] Interpretation and review of laboratory results Abnormal [facility] Protein [Mass/Vol] 7.1 g/dL 6.3 - 8.2 g/dL [facility] Albumin [Mass/Vol] 3.3 g/dL Low 3.5 - 5.0 g/dL [facility] ALP [Catalytic activity/Vol] 262 U/L High 38 - 126 U/L [facility] ALT [Catalytic activity/Vol] 217 U/L High 0 - 49 U/L [facility] AST [Catalytic activity/Vol] 234 U/L High 15 - 46 U/L [facility] Bilirubin [Mass/Vol] 1.3 mg/dL 0.2 - 1 .3 mg/dL [facility] Bilirubin.conjugated [Mass/Vol] 0.0 mg/dL 0.0 - 0.3 mg/dL [facility] Interpretation and review of laboratory results Abnormal [facility] Protein [Mass/Vol] 6.6 g/dL 6.3 - 8.2 g/dL [facility] CBC W Auto Differential pane l (Bld)on 11-27-2023 Basophils (Bld) [#/Vol] 0.1 10*3/uL 0.0 - 0.2 10*3/uL [facility] Basophils/100 WBC (Bld) 0.6 % 0.0 - 2.0 % [facility] Eosinophils (Bld) [#/Vol] 0.1 10*3/uL 0.0 - 0.5 10*3/uL [facility] Eosinophils/100 WBC (Bld) 1.3 % 0.0 - 6.0 % [facility] Erythrocyte distribution width (RBC) [Ratio] 15.8 % High 11.5 - 15.0 % [facility] Hematocrit (Bld) [Volume fraction] 34.8 % Low 40.0 - 52.0 % [facility] Hemoglobin (Bld) [Mass/Vol] 11.6 g/dL Low 13.0 - 18.0 g/dL [facility] Immature granulocytes (Bld) [#/Vol] 0.4 10*3/uL High NINF - 0.1 10*3/uL [facility] Immature granulocytes/100 WBC (Bld) 4.6 % High 0.0 - 2.0 % [facility] Interpretation and review of laboratory results Abnormal [facility] Lymphocytes (Bld) [#/Vol] 2.0 10*3/uL 1.0 - 4.3 10*3/uL [facility] Lymphocytes/100 WBC (Bld) 23.4 % 15.0 - 45.0 % [facility] MCH (RBC) [Entitic mass] 30.9 pg 26.0 - 34.0 pg [facility] MCHC (RBC) [Mass/Vol] 33.3 % 30.5 - 36.0 % [facility] MCV (RBC) [Entitic vol] 92.6 fL 77.0 - 99.0 fL [facility] Monocytes (Bld) [#/Vol] 0.7 10*3/uL 0.0 - 0.9 10*3/uL [facility] Monocytes/100 WBC (Bld) 8.4 % 5.0 - 13.0 % [facility] Neutrophils (Bld) [#/Vol] 5.2 10*3/uL 1.8 - 7.5 10*3/uL [facility] Neutrophils/100 WBC (Bld) 61.7 % 38.0 - 82.0 % [facility] Nucleated RBC/100 WBC (Bld) [Ratio] 0.0 % [facility] Platelet mean volume (Bld) [Entitic vol] 10.0 fL 9.0 - 12.7 fL [facility] Platelets (Bld) [#/Vol] 325 10*3/uL 140 - 440 10*3/uL [facility] RBC (Bld) [#/Vol] 3.76 10*6/uL Low 4.40 - 5.9 0 10*6/uL [facility] WBC (Bld) [#/Vol] 8.5 10*3/uL 3.6 - 10.7 10*3/uL [facility] Comprehensive metabolic 1998 panelon 11-27-2023 Albumin [Mass/Vol] 3.8 g/dL 3.5 - 5.0 g/dL [facility] ALP [Catalytic activity/Vol] 271 U/L High 38 - 126 U/L [facility] ALT [Catalytic activity/Vol] 220 U/L High 0 - 49 U/L [facility] Anion gap [Moles/Vol] 9 mmol/L 3 - 13 mmol/L [facility] AST [Catalytic activity/Vol] 220 U/L High 15 - 46 U/L [facility] Bilirubin [Mass/Vol] 1.6 mg/dL High 0.2 - 1 .3 mg/dL [facility] Calcium [Mass/Vol] 8.9 mg/dL 8.4 - 10. 4 mg/dL [facility] Chloride [Moles/Vol] 101 mmol/L 98 - 10 7 mmol/L [facility] CO2 [Moles/Vol] 24 mmol/L 22 - 30 mmol/L [facility] Creatinine [Mass/Vol] 0.46 mg/dL Low 0.66 - 1.25 mg/dL [facility] GFR/1.73 sq M.predicted (S/P/Bld) [Vol rate/Area] - PINF [facility] Glucose [Mass/Vol] 111 mg/dL High 70 - 100 mg/dL [facility] Interpretation and review of laboratory results Abnormal [facility] Potassium [Moles/Vol] 3.6 mmol/L 3.5 - 5.1 mmol/L [facility] Protein [Mass/Vol] 7.1 g/dL 6.3 - 8.2 g/dL [facility] Sodium [Moles/Vol] 134 mmol/L Low 135 - 145 mmol/L [facility] Urea nitrogen [Mass/Vol] 7 mg/dL Low 9 - 20 mg/dL [facility] Hepatic function 2000 panelo n 11-27-2023 Albumin [Mass/Vol] 3.5 g/dL 3.5 - 5.0 g/dL [facility] ALP [Catalytic activity/Vol] 295 U/L High 38 - 126 U/L [facility] ALT [Catalytic activity/Vol] 226 U/L High 0 - 49 U/L [facility] AST [Catalytic activity/Vol] 220 U/L High 15 - 46 U/L [facility] Bilirubin [Mass/Vol] 1.5 mg/dL High 0.2 - 1 .3 mg/dL [facility] Bilirubin.conjugated [Mass/Vol] 0.0 mg/dL 0.0 - 0.3 mg/dL [facility] Interpretation and review of laboratory results Abnormal [facility] Protein [Mass/Vol] 7.0 g/dL 6.3 - 8.2 g/dL [facility] CBC W Auto Differential pane l (Bld)on 11-26-2023 Erythrocyte distribution width (RBC) [Ratio] 15.9 % High 11.5 - 15.0 % [facility] Hematocrit (Bld) [Volume fraction] 36.6 % Low 40.0 - 52.0 % [facility] Hemoglobin (Bld) [Mass/Vol] 12.2 g/dL Low 13.0 - 18.0 g/dL [facility] MCH (RBC) [Entitic mass] 31.0 pg 26.0 - 34.0 pg [facility] MCHC (RBC) [Mass/Vol] 33.3 % 30.5 - 36.0 % [facility] MCV (RBC) [Entitic vol] 93.1 fL 77.0 - 99.0 fL [facility] Platelet mean volume (Bld) [Entitic vol] 10.0 fL 9.0 - 12.7 fL [facility] Platelets (Bld) [#/Vol] 279 10*3/uL 140 - 440 10*3/uL [facility] RBC (Bld) [#/Vol] 3.93 10*6/uL Low 4.40 - 5.9 0 10*6/uL [facility] WBC (Bld) [#/Vol] 7.8 10*3/uL 3.6 - 10.7 10*3/uL [facility] Comprehensive metabolic 1998 panelon 11-26-2023 Albumin [Mass/Vol] 3.9 g/dL 3.5 - 5.0 g/dL [facility] ALP [Catalytic activity/Vol] 292 U/L High 38 - 126 U/L [facility] ALT [Catalytic activity/Vol] 232 U/L High 0 - 49 U/L [facility] Anion gap [Moles/Vol] 8 mmol/L 3 - 13 mmol/L [facility] AST [Catalytic activity/Vol] 285 U/L High 15 - 46 U/L [facility] Bilirubin [Mass/Vol] 2.1 mg/dL High 0.2 - 1 .3 mg/dL [facility] Calcium [Mass/Vol] 8.8 mg/dL 8.4 - 10. 4 mg/dL [facility] Chloride [Moles/Vol] 104 mmol/L 98 - 10 7 mmol/L [facility] CO2 [Moles/Vol] 23 mmol/L 22 - 30 mmol/L [facility] Creatinine [Mass/Vol] 0.45 mg/dL Low 0.66 - 1.25 mg/dL [facility] GFR/1.73 sq M.predicted (S/P/Bld) [Vol rate/Area] - PINF [facility] Glucose [Mass/Vol] 114 mg/dL High 70 - 100 mg/dL [facility] Interpretation and review of laboratory results Abnormal [facility] Potassium [Moles/Vol] 4.5 mmol/L 3.5 - 5.1 mmol/L [facility] Protein [Mass/Vol] 7.8 g/dL 6.3 - 8.2 g/dL [facility] Sodium [Moles/Vol] 135 mmol/L 135 - 145 mmol/L [facility] Urea nitrogen [Mass/Vol] 5 mg/dL Low 9 - 20 mg/dL [facility] Laboratory - Hematology and Cell countson 11-26-2023 Band form neutrophils (Bld) [#/Vol] 0.2 10*3/uL High NINF - 0.0 10*3/uL [facility] Band form neutrophils/100 WBC (Bld) 3 % High NINF - 0 % [facility] Eosinophils (Bld) [#/Vol] 0.1 10*3/uL 0.0 - 0.5 10*3/uL [facility] Eosinophils/100 WBC (Bld) 1 % 0 - 6 % [facility] Hypochromia Ql (Bld) Rare Abnormal (none) [facility] Lymphocytes (Bld) [#/Vol] 1.5 10*3/uL 1.0 - 4.3 10*3/uL [facility] Lymphocytes/100 WBC (Bld) 19 % 15 - 45 % [facility] Metamyelocytes (Bld) [#/Vol] 0.2 10*3/uL High NINF - 0.0 10*3/uL [facility] Metamyelocytes/100 WBC (Bld) 2 % High NINF - 0 % [facility] Monocytes (Bld) [#/Vol] 0.4 10*3/uL 0.0 - 0.9 10*3/uL [facility] Monocytes/100 WBC (Bld) 5 % 5 - 13 % [facility] Neutrophils (Bld) [#/Vol] 5.7 10*3/uL 1.8 - 7.5 10*3/uL [facility] Poikilocytosis LM Ql (Bld) Rare Abnormal (none) [facility] RBC morphology finding Nom (Bld) abnormal [facility] Segmented neutrophils/100 WBC (Bld) 70 % 38 - 82 % [facility] Stomatocytes LM Ql (Bld) Slight Abnormal (none) [facility] Target cells LM Ql (Bld) Rare Abnormal (none) [facility] No Panel Informationon 11-25 CV CPACS Bands Manual 3 [facility] Eosinophils Manual 1 0 - 1 [facility] Interpretation and review of laboratory results Abnormal [facility] Lymphocytes Manual 20 [facility] Metamyelocytes Manual 2 [facility] Monocytes Manual 5 [facility] Neutrophils Manual 72 [facility] CBC W Auto Differential pane l (Bld)on 11-25-2023 Erythrocyte distribution width (RBC) [Ratio] 15.9 % High 11.5 - 15.0 % [facility] Hematocrit (Bld) [Volume fraction] 35.7 % Low 40.0 - 52.0 % [facility] Hemoglobin (Bld) [Mass/Vol] 11.7 g/dL Low 13.0 - 18.0 g/dL [facility] MCH (RBC) [Entitic mass] 30.3 pg 26.0 - 34.0 pg [facility] MCHC (RBC) [Mass/Vol] 32.8 % 30.5 - 36.0 % [facility] MCV (RBC) [Entitic vol] 92.5 fL 77.0 - 99.0 fL [facility] Nucleated RBC/100 WBC (Bld) [Ratio] 0.0 % [facility] Platelet mean volume (Bld) [Entitic vol] 10.1 fL 9.0 - 12.7 fL [facility] Platelets (Bld) [#/Vol] 225 10*3/uL 140 - 440 10*3/uL [facility] RBC (Bld) [#/Vol] 3.86 10*6/uL Low 4.40 - 5.9 0 10*6/uL [facility] WBC (Bld) [#/Vol] 6.5 10*3/uL 3.6 - 10.7 10*3/uL [facility] Comprehensive metabolic 1998 panelon 11-25-2023 Albumin [Mass/Vol] 3.6 g/dL 3.5 - 5.0 g/dL [facility] ALP [Catalytic activity/Vol] 312 U/L High 38 - 126 U/L [facility] ALT [Catalytic activity/Vol] 175 U/L High 0 - 49 U/L [facility] Anion gap [Moles/Vol] 9 mmol/L 3 - 13 mmol/L [facility] AST [Catalytic activity/Vol] 258 U/L High 15 - 46 U/L [facility] Bilirubin [Mass/Vol] 2.3 mg/dL High 0.2 - 1 .3 mg/dL [facility] Calcium [Mass/Vol] 8.7 mg/dL 8.4 - 10. 4 mg/dL [facility] Chloride [Moles/Vol] 104 mmol/L 98 - 10 7 mmol/L [facility] CO2 [Moles/Vol] 24 mmol/L 22 - 30 mmol/L [facility] Creatinine [Mass/Vol] 0.47 mg/dL Low 0.66 - 1.25 mg/dL [facility] GFR/1.73 sq M.predicted (S/P/Bld) [Vol rate/Area] - PINF [facility] Glucose [Mass/Vol] 110 mg/dL High 70 - 100 mg/dL [facility] Interpretation and review of laboratory results Abnormal [facility] Potassium [Moles/Vol] 3.2 mmol/L Low 3.5 - 5.1 mmol/L [facility] Protein [Mass/Vol] 7.0 g/dL 6.3 - 8.2 g/dL [facility] Sodium [Moles/Vol] 137 mmol/L 135 - 145 mmol/L [facility] Urea nitrogen [Mass/Vol] 4 mg/dL Low 9 - 20 mg/dL [facility] Laboratory - Chemistry and C hemistry - challengeon 11-25-2023 Magnesium [Mass/Vol] 2.4 mg/dL High 1.6 - 2 .3 mg/dL [facility] Magnesium [Mass/Vol]on 11-24 Interpretation and review of laboratory results Abnormal [facility] Manual differential performe d Ql (Bld)on 11-25-2023 Anisocytosis Ql (Bld) Slight Abnormal (none) [facility] Atypical Lymphocytes Manual 6 [facility] Band form neutrophils (Bld) [#/Vol] 0.1 10*3/uL High NINF - 0.0 10*3/uL [facility] Band form neutrophils/100 WBC (Bld) 2 % High NINF - 0 % [facility] Bands Manual 2 [facility] Cells Counted Total (Bld) [#] 100 {cells} [facility] Differential Method Manual differential performed [facility] Leukocyte morphology finding Nom (Bld) Normal [facility] Lymphocytes (Bld) [#/Vol] 0.7 10*3/uL Low 1.0 - 4.3 10*3/uL [facility] Lymphocytes Manual 11 [facility] Lymphocytes/100 WBC (Bld) 11 % Low 15 - 45 % [facility] Metamyelocytes (Bld) [#/Vol] 0.1 10*3/uL High NINF - 0.0 10*3/uL [facility] Metamyelocytes Manual 1 [facility] Metamyelocytes/100 WBC (Bld) 1 % High NINF - 0 % [facility] Monocytes (Bld) [#/Vol] 0.7 10*3/uL 0.0 - 0.9 10*3/uL [facility] Monocytes Manual 11 [facility] Monocytes/100 WBC (Bld) 11 % 5 - 13 % [facility] Myelocytes (Bld) [#/Vol] 0.1 10*3/uL High NINF - 0.0 10*3/uL [facility] Myelocytes Manual 2 [facility] Myelocytes/100 WBC (Bld) 2 % High NINF - 0 % [facility] Neutrophils (Bld) [#/Vol] 4.5 10*3/uL 1.8 - 7.5 10*3/uL [facility] Neutrophils Manual 67 [facility] Ovalocytes LM Ql (Bld) Slight Abnormal (none) [facility] Platelet morphology finding Nom (Bld) Normal [facility] Poikilocytosis LM Ql (Bld) Moderate Abnormal (none) [facility] Segmented neutrophils/100 WBC (Bld) 67 % 38 - 82 % [facility] Stomatocytes LM Ql (Bld) Moderate Abnormal (none) [facility] Target cells LM Ql (Bld) Slight Abnormal (none) [facility] Variant lymphocytes (Bld) [#/Vol] 0.4 10*3/uL High NINF - 0.0 10*3/uL [facility] Variant lymphocytes/100 WBC (Bld) 6 % High NINF - 0 % [facility] WBC corrected for nucl RBC (Bld) [#/Vol] 6.5 10*3/uL 3.6 - 10.7 10*3/uL [facility] No Panel Informationon 11-24 Interpretation and review of laboratory results Abnormal [facility] CBC W Auto Differential pane l (Bld)Ordered By: Nigel Palmer on 11-24-2023 Erythrocyte distribution width (RBC) [Ratio] 15.9 % High 11.5 - 15.0 % [facility] Hematocrit (Bld) [Volume fraction] 36.8 % Low 40.0 - 52.0 % [facility] Hemoglobin (Bld) [Mass/Vol] 12.0 g/dL Low 13.0 - 18.0 g/dL [facility] MCH (RBC) [Entitic mass] 30.3 pg 26.0 - 34.0 pg [facility] MCHC (RBC) [Mass/Vol] 32.6 % 30.5 - 36.0 % [facility] MCV (RBC) [Entitic vol] 92.9 fL 77.0 - 99.0 fL [facility] Nucleated RBC/100 WBC (Bld) [Ratio] 0.0 % [facility] Platelet mean volume (Bld) [Entitic vol] 9.6 fL 9.0 - 12.7 fL [facility] Platelets (Bld) [#/Vol] 179 10*3/uL 140 - 440 10*3/uL [facility] RBC (Bld) [#/Vol] 3.96 10*6/uL Low 4.40 - 5.9 0 10*6/uL [facility] WBC (Bld) [#/Vol] 6.8 10*3/uL 3.6 - 10.7 10*3/uL [facility] Comprehensive metabolic 1998 panelon 11-24-2023 Albumin [Mass/Vol] 3.5 g/dL 3.5 - 5.0 g/dL [facility] ALP [Catalytic activity/Vol] 293 U/L High 38 - 126 U/L [facility] ALT [Catalytic activity/Vol] 121 U/L High 0 - 49 U/L [facility] Anion gap [Moles/Vol] 7 mmol/L 3 - 13 mmol/L [facility] AST [Catalytic activity/Vol] 195 U/L High 15 - 46 U/L [facility] Bilirubin [Mass/Vol] 2.8 mg/dL High 0.2 - 1 .3 mg/dL [facility] Calcium [Mass/Vol] 8.7 mg/dL 8.4 - 10. 4 mg/dL [facility] Chloride [Moles/Vol] 106 mmol/L 98 - 10 7 mmol/L [facility] CO2 [Moles/Vol] 23 mmol/L 22 - 30 mmol/L [facility] Creatinine [Mass/Vol] 0.51 mg/dL Low 0.66 - 1.25 mg/dL [facility] GFR/1.73 sq M.predicted (S/P/Bld) [Vol rate/Area] - PINF [facility] Glucose [Mass/Vol] 113 mg/dL High 70 - 100 mg/dL [facility] Interpretation and review of laboratory results Abnormal [facility] Potassium [Moles/Vol] 3.7 mmol/L 3.5 - 5.1 mmol/L [facility] Protein [Mass/Vol] 6.9 g/dL 6.3 - 8.2 g/dL [facility] Sodium [Moles/Vol] 136 mmol/L 135 - 145 mmol/L [facility] Urea nitrogen [Mass/Vol] 3 mg/dL Low 9 - 20 mg/dL [facility] Manual differential performe d Ql (Bld)on 11-24-2023 Anisocytosis Ql (Bld) Slight Abnormal (none) [facility] Band form neutrophils (Bld) [#/Vol] 0.1 10*3/uL High NINF - 0.0 10*3/uL [facility] Band form neutrophils/100 WBC (Bld) 2 % High NINF - 0 % [facility] Bands Manual 2 [facility] Cells Counted Total (Bld) [#] 100 {cells} [facility] Differential Method Manual differential performed [facility] Eosinophils (Bld) [#/Vol] 0.1 10*3/uL 0.0 - 0.5 10*3/uL [facility] Eosinophils Manual 2 High 0 - 1 [facility] Eosinophils/100 WBC (Bld) 2 % 0 - 6 % [facility] Leukocyte morphology finding Nom (Bld) Normal [facility] Lymphocytes (Bld) [#/Vol] 1.3 10*3/uL 1.0 - 4.3 10*3/uL [facility] Lymphocytes Manual 19 [facility] Lymphocytes/100 WBC (Bld) 19 % 15 - 45 % [facility] Monocytes (Bld) [#/Vol] 0.5 10*3/uL 0.0 - 0.9 10*3/uL [facility] Monocytes Manual 7 [facility] Monocytes/100 WBC (Bld) 7 % 5 - 13 % [facility] Myelocytes (Bld) [#/Vol] 0.1 10*3/uL High NINF - 0.0 10*3/uL [facility] Myelocytes Manual 2 [facility] Myelocytes/100 WBC (Bld) 2 % High NINF - 0 % [facility] Neutrophils (Bld) [#/Vol] 4.8 10*3/uL 1.8 - 7.5 10*3/uL [facility] Neutrophils Manual 68 [facility] Platelet morphology finding Nom (Bld) Normal [facility] Poikilocytosis LM Ql (Bld) Slight Abnormal (none) [facility] Polychromasia LM Ql (Bld) Rare Abnormal (none) [facility] Segmented neutrophils/100 WBC (Bld) 68 % 38 - 82 % [facility] Target cells LM Ql (Bld) Slight Abnormal (none) [facility] WBC corrected for nucl RBC (Bld) [#/Vol] 6.8 10*3/uL 3.6 - 10.7 10*3/uL [facility] No Panel InformationOrdered By: Nigel Palmer on 11-24-2023 Interpretation and review of laboratory results Abnormal [facility] US Abdomen limitedon 024 [facility] Radiology Study observation (narrative) [facility] Abdomen limitedOrdered By : Humera Abbott on 11-24-2023 [facility] Work Phone: CBC W Auto Differential pane l (Bld)on 11-23-2023 Erythrocyte distribution width (RBC) [Ratio] 15.7 % High 11.5 - 15.0 % [facility] Hematocrit (Bld) [Volume fraction] 37.4 % Low 40.0 - 52.0 % [facility] Hemoglobin (Bld) [Mass/Vol] 12.5 g/dL Low 13.0 - 18.0 g/dL [facility] Interpretation and review of laboratory results Abnormal [facility] MCH (RBC) [Entitic mass] 30.7 pg 26.0 - 34.0 pg [facility] MCHC (RBC) [Mass/Vol] 33.4 % 30.5 - 36.0 % [facility] MCV (RBC) [Entitic vol] 91.9 fL 77.0 - 99.0 fL [facility] Platelet mean volume (Bld) [Entitic vol] 10.0 fL 9.0 - 12.7 fL [facility] Platelets (Bld) [#/Vol] 144 10*3/uL 140 - 440 10*3/uL [facility] RBC (Bld) [#/Vol] 4.07 10*6/uL Low 4.40 - 5.9 0 10*6/uL [facility] WBC (Bld) [#/Vol] 6.0 10*3/uL 3.6 - 10.7 10*3/uL [facility] Comprehensive metabolic 1998 panelon 11-23-2023 Albumin [Mass/Vol] 3.4 g/dL Low 3.5 - 5.0 g/dL [facility] ALP [Catalytic activity/Vol] 205 U/L High 38 - 126 U/L [facility] ALT [Catalytic activity/Vol] 74 U/L High 0 - 49 U/L [facility] Anion gap [Moles/Vol] 8 mmol/L 3 - 13 mmol/L [facility] AST [Catalytic activity/Vol] 141 U/L High 15 - 46 U/L [facility] Bilirubin [Mass/Vol] 3.8 mg/dL High 0.2 - 1 .3 mg/dL [facility] Calcium [Mass/Vol] 8.8 mg/dL 8.4 - 10. 4 mg/dL [facility] Chloride [Moles/Vol] 104 mmol/L 98 - 10 7 mmol/L [facility] CO2 [Moles/Vol] 24 mmol/L 22 - 30 mmol/L [facility] Creatinine [Mass/Vol] 0.51 mg/dL Low 0.66 - 1.25 mg/dL [facility] GFR/1.73 sq M.predicted (S/P/Bld) [Vol rate/Area] - PINF [facility] Glucose [Mass/Vol] 111 mg/dL High 70 - 100 mg/dL [facility] Interpretation and review of laboratory results Abnormal [facility] Potassium [Moles/Vol] 3.4 mmol/L Low 3.5 - 5.1 mmol/L [facility] Protein [Mass/Vol] 6.7 g/dL 6.3 - 8.2 g/dL [facility] Sodium [Moles/Vol] 135 mmol/L 135 - 145 mmol/L [facility] Urea nitrogen [Mass/Vol] 7 mg/dL Low 9 - 20 mg/dL [facility] Hepatitis 1996 panel (S)on HAV IgM IA Ql Not detected Not Detected [facility] HBV core IgM IA Ql Not detected Not Detected [facility] HBV surface Ag IA Ql Not detected Not Detected [facility] HCV Ab IA Ql Not detected Not Detected [facility] Interpretation and review of laboratory results Normal [facility] Laboratory - Chemistry and C hemistry - challengeon 11-23-2023 Lipase [Catalytic activity/Vol] 183 U/L 23 - 300 U/L [facility] Magnesium [Mass/Vol] 2.4 mg/dL High 1.6 - 2 .3 mg/dL [facility] Laboratory - Hematology and Cell countson 11-23-2023 Band form neutrophils (Bld) [#/Vol] 0.1 10*3/uL High NINF - 0.0 10*3/uL [facility] Band form neutrophils/100 WBC (Bld) 1 % High NINF - 0 % [facility] Eosinophils (Bld) [#/Vol] 0.1 10*3/uL 0.0 - 0.5 10*3/uL [facility] Eosinophils/100 WBC (Bld) 1 % 0 - 6 % [facility] Hypochromia Ql (Bld) Slight Abnormal (none) [facility] Lymphocytes (Bld) [#/Vol] 1.2 10*3/uL 1.0 - 4.3 10*3/uL [facility] Lymphocytes/100 WBC (Bld) 20 % 15 - 45 % [facility] Metamyelocytes (Bld) [#/Vol] 0.2 10*3/uL High NINF - 0.0 10*3/uL [facility] Metamyelocytes/100 WBC (Bld) 3 % High NINF - 0 % [facility] Monocytes (Bld) [#/Vol] 0.8 10*3/uL 0.0 - 0.9 10*3/uL [facility] Monocytes/100 WBC (Bld) 14 % High 5 - 13 % [facility] Myelocytes (Bld) [#/Vol] 0.2 10*3/uL High NINF - 0.0 10*3/uL [facility] Myelocytes/100 WBC (Bld) 3 % High NINF - 0 % [facility] Neutrophils (Bld) [#/Vol] 3.5 10*3/uL 1.8 - 7.5 10*3/uL [facility] Poikilocytosis LM Ql (Bld) Rare Abnormal (none) [facility] Polychromasia LM Ql (Bld) Rare Abnormal (none) [facility] RBC morphology finding Nom (Bld) abnormal [facility] Segmented neutrophils/100 WBC (Bld) 58 % 38 - 82 % [facility] Stomatocytes LM Ql (Bld) Slight Abnormal (none) [facility] Target cells LM Ql (Bld) Rare Abnormal (none) [facility] Lipase [Catalytic activity/V ol]on 11-23-2023 Interpretation and review of laboratory results Normal [facility] Magnesium [Mass/Vol]on 11-22 Interpretation and review of laboratory results Abnormal [facility] No Panel Informationon 11-22 Bands Manual 1 [facility] Eosinophils Manual 1 0 - 1 [facility] Interpretation and review of laboratory results Abnormal [facility] Lymphocytes Manual 20 [facility] Metamyelocytes Manual 3 [facility] Monocytes Manual 14 [facility] Myelocytes Manual 3 [facility] Neutrophils Manual 58 [facility] CBC W Auto Differential pane l (Bld)Ordered By: Dada Rich on 11-22-2023 Basophils (Bld) [#/Vol] 0.0 10*3/uL 0.0 - 0.2 10*3/uL [facility] Basophils/100 WBC (Bld) 0.5 % 0.0 - 2.0 % [facility] Eosinophils (Bld) [#/Vol] 0.1 10*3/uL 0.0 - 0.5 10*3/uL [facility] Eosinophils/100 WBC (Bld) 2.0 % 0.0 - 6.0 % [facility] Erythrocyte distribution width (RBC) [Ratio] 15.3 % High 11.5 - 15.0 % [facility] Hematocrit (Bld) [Volume fraction] 35.7 % Low 40.0 - 52.0 % [facility] Hemoglobin (Bld) [Mass/Vol] 12.2 g/dL Low 13.0 - 18.0 g/dL [facility] Immature granulocytes (Bld) [#/Vol] 0.3 10*3/uL High NINF - 0.1 10*3/uL [facility] Immature granulocytes/100 WBC (Bld) 4.7 % High 0.0 - 2.0 % [facility] Interpretation and review of laboratory results Abnormal [facility] IPF 4 [facility] Lymphocytes (Bld) [#/Vol] 1.6 10*3/uL 1.0 - 4.3 10*3/uL [facility] Lymphocytes/100 WBC (Bld) 26.3 % 15.0 - 45.0 % [facility] MCH (RBC) [Entitic mass] 31.4 pg 26.0 - 34.0 pg [facility] MCHC (RBC) [Mass/Vol] 34.2 % 30.5 - 36.0 % [facility] MCV (RBC) [Entitic vol] 91.8 fL 77.0 - 99.0 fL [facility] Monocytes (Bld) [#/Vol] 0.7 10*3/uL 0.0 - 0.9 10*3/uL [facility] Monocytes/100 WBC (Bld) 11.4 % 5.0 - 13.0 % [facility] Neutrophils (Bld) [#/Vol] 3.3 10*3/uL 1.8 - 7.5 10*3/uL [facility] [facility] Neutrophils/100 WBC (Bld) 55.1 % 38.0 - 82.0 % [facility] Nucleated RBC/100 WBC (Bld) [Ratio] 0.3 % [facility] Platelet mean volume (Bld) [Entitic vol] 9.9 fL 9.0 - 12.7 fL [facility] Platelets (Bld) [#/Vol] 142 10*3/uL 140 - 440 10*3/uL [facility] RBC (Bld) [#/Vol] 3.89 10*6/uL Low 4.40 - 5.9 0 10*6/uL [facility] WBC (Bld) [#/Vol] 5.9 10*3/uL 3.6 - 10.7 10*3/uL [facility] CT Abdomen WO contraston [facility] Radiology Study observation (narrative) [facility] Comprehensive metabolic 1998 panelon 11-22-2023 Albumin [Mass/Vol] 3.2 g/dL Low 3.5 - 5.0 g/dL [facility] ALP [Catalytic activity/Vol] 140 U/L High 38 - 126 U/L [facility] ALT [Catalytic activity/Vol] 56 U/L High 0 - 49 U/L [facility] Anion gap [Moles/Vol] 7 mmol/L 3 - 13 mmol/L [facility] AST [Catalytic activity/Vol] 121 U/L High 15 - 46 U/L [facility] Bilirubin [Mass/Vol] 4.0 mg/dL High 0.2 - 1 .3 mg/dL [facility] Calcium [Mass/Vol] 8.6 mg/dL 8.4 - 10. 4 mg/dL [facility] Chloride [Moles/Vol] 102 mmol/L 98 - 10 7 mmol/L [facility] CO2 [Moles/Vol] 23 mmol/L 22 - 30 mmol/L [facility] Creatinine [Mass/Vol] 0.47 mg/dL Low 0.66 - 1.25 mg/dL [facility] GFR/1.73 sq M.predicted (S/P/Bld) [Vol rate/Area] - PINF [facility] Glucose [Mass/Vol] 118 mg/dL High 70 - 100 mg/dL [facility] Interpretation and review of laboratory results Abnormal [facility] Potassium [Moles/Vol] 3.2 mmol/L Low 3.5 - 5.1 mmol/L [facility] Protein [Mass/Vol] 6.3 g/dL 6.3 - 8.2 g/dL [facility] Sodium [Moles/Vol] 132 mmol/L Low 135 - 145 mmol/L [facility] Urea nitrogen [Mass/Vol] 8 mg/dL Low 9 - 20 mg/dL [facility] Laboratory - Chemistry and C hemistry - challengeon 11-22-2023 Magnesium [Mass/Vol] 2.2 mg/dL 1.6 - 2 .3 mg/dL [facility] Magnesium [Mass/Vol]on 11-21 Interpretation and review of laboratory results Normal [facility] CBC W Auto Differential pane l (Bld)on 11-21-2023 Basophils (Bld) [#/Vol] 0.0 10*3/uL 0.0 - 0.2 10*3/uL [facility] Basophils/100 WBC (Bld) 0.5 % 0.0 - 2.0 % [facility] Eosinophils (Bld) [#/Vol] 0.1 10*3/uL 0.0 - 0.5 10*3/uL [facility] Eosinophils/100 WBC (Bld) 0.9 % 0.0 - 6.0 % [facility] Erythrocyte distribution width (RBC) [Ratio] 15.3 % High 11.5 - 15.0 % [facility] [employer] Hematocrit (Bld) [Volume fraction] 37.5 % Low 40.0 - 52.0 % [facility] Hemoglobin (Bld) [Mass/Vol] 12.4 g/dL Low 13.0 - 18.0 g/dL [facility] Immature granulocytes (Bld) [#/Vol] 0.1 10*3/uL High NINF - 0.1 10*3/uL [facility] Immature granulocytes/100 WBC (Bld) 2.0 % 0.0 - 2.0 % [facility] Interpretation and review of laboratory results Abnormal [facility] IPF 6 [facility] Lymphocytes (Bld) [#/Vol] 1.3 10*3/uL 1.0 - 4.3 10*3/uL [facility] Lymphocytes/100 WBC (Bld) 19.3 % 15.0 - 45.0 % [facility] MCH (RBC) [Entitic mass] 30.7 pg 26.0 - 34.0 pg [facility] MCHC (RBC) [Mass/Vol] 33.1 % 30.5 - 36.0 % [facility] MCV (RBC) [Entitic vol] 92.8 fL 77.0 - 99.0 fL [facility] Monocytes (Bld) [#/Vol] 0.6 10*3/uL 0.0 - 0.9 10*3/uL [facility] Monocytes/100 WBC (Bld) 9.0 % 5.0 - 13.0 % [facility] Neutrophils (Bld) [#/Vol] 4.5 10*3/uL 1.8 - 7.5 10*3/uL [facility] Neutrophils/100 WBC (Bld) 68.3 % 38.0 - 82.0 % [facility] Nucleated RBC/100 WBC (Bld) [Ratio] 0.0 % [facility] Platelet mean volume (Bld) [Entitic vol] 10.7 fL 9.0 - 12.7 fL [facility] Platelets (Bld) [#/Vol] 109 10*3/uL Low 140 - 440 10*3/uL [facility] RBC (Bld) [#/Vol] 4.04 10*6/uL Low 4.40 - 5.9 0 10*6/uL [facility] WBC (Bld) [#/Vol] 6.5 10*3/uL 3.6 - 10.7 10*3/uL [facility] Comprehensive metabolic 1998 panelon 11-21-2023 Albumin [Mass/Vol] 3.1 g/dL Low 3.5 - 5.0 g/dL [facility] ALP [Catalytic activity/Vol] 83 U/L 38 - 126 U/L [facility] ALT [Catalytic activity/Vol] 47 U/L 0 - 49 U/L [facility] Anion gap [Moles/Vol] 8 mmol/L 3 - 13 mmol/L [facility] AST [Catalytic activity/Vol] 69 U/L High 15 - 46 U/L [facility] Bilirubin [Mass/Vol] 3.3 mg/dL High 0.2 - 1 .3 mg/dL [facility] Calcium [Mass/Vol] 8.6 mg/dL 8.4 - 10. 4 mg/dL [facility] Chloride [Moles/Vol] 103 mmol/L 98 - 10 7 mmol/L [facility] CO2 [Moles/Vol] 23 mmol/L 22 - 30 mmol/L [facility] Creatinine [Mass/Vol] 0.44 mg/dL Low 0.66 - 1.25 mg/dL [facility] GFR/1.73 sq M.predicted (S/P/Bld) [Vol rate/Area] - PINF [facility] Glucose [Mass/Vol] 95 mg/dL 70 - 100 mg/dL [facility] Interpretation and review of laboratory results Abnormal [facility] Potassium [Moles/Vol] 3.2 mmol/L Low 3.5 - 5.1 mmol/L [facility] Protein [Mass/Vol] 6.2 g/dL Low 6.3 - 8.2 g/dL [facility] Sodium [Moles/Vol] 134 mmol/L Low 135 - 145 mmol/L [facility] Urea nitrogen [Mass/Vol] 6 mg/dL Low 9 - 20 mg/dL [facility] Laboratory - Chemistry and C hemistry - challengeon 11-21-2023 Magnesium [Mass/Vol] 1.9 mg/dL 1.6 - 2 .3 mg/dL [facility] Magnesium [Mass/Vol]on 11-20 Interpretation and review of laboratory results Normal [facility] US Heart TransthoracicOrdere d By: Genie Pike on 11-21-2023 Ao Root [facility] 1.14 cm/[facility]2 [facility]: Aortic Root 2.7 cm [facility] [employer] Phone: [phone] Aortic Sinus Valsalva 2.7 cm [place] [employer] Phone: Aortic Sinus Valsalva Index 1.14 cm/m2 [facility]: [phone] Ascending Aorta 2.9 cm [facility] [employer] Phone: [phone] Ascending Aorta Index 1.22 cm/m2 [place] [employer] Phone: AV Area by Peak Velocity 2.9 cm2 [facility] [employer] Phone: AV Area by VTI 2.9 cm2 [facility] [employer] Phone: AV Mean Gradient 6 mmHg [facility]: AV Mean Velocity 1.1 m/s [facility] [employer] Phone: AV Peak Gradient 11 mmHg [facility] [employer] Phone: AV Peak Velocity 1.6 m/s [facility] [employer] Phone: AV Velocity Ratio 0.75 [facility] [employer] Phone: AV VTI 31.9 cm [facility] [employer] Phone: HEATHER/BSA Peak Velocity 1.2 cm2/m2 [place] [employer] Phone: HEATHER/BSA VTI 1.2 cm2/m2 [facility] [employer] Phone: E/E' Lateral 5.39 [facility] [employer] Phone: E/E' Ratio (Averaged) 6.43 [place] [employer] Phone: E/E' Septal 7.46 [facility] [employer] Phone: EF BP 74 % 55 - 100 % [facility]: Interpretation and review of laboratory results Abnormal [facility]: LA Volume 2C 67 mL Abnormal 18 - 58 mL [facility] Work Phone: [phone] LA Volume 4C 95 mL Abnormal 18 - 58 mL [facility] Work Phone: LA Volume A/L 93 mL [facility] Work Phone: LA Volume BP 87 mL Abnormal 18 - 58 mL [facility] Work Phone: [phone] LA Volume Index 2C 28 mL/m2 16 - 34 mL/m2 [facility] Work Phone: LA Volume Index 4C 40 mL/m2 Abnormal 16 - 34 mL/m2 [facility] Work Phone: LA Volume Index A/L 39 mL/m2 16 - 34 mL/m2 [facility] Work Phone: [phone] LA Volume Index BP 37 ml/m2 Abnormal 16 - 34 ml/m2 [facility] Work Phone: LV E' Lateral Velocity 18 cm/s [facility] Work Phone: LV E' Septal Velocity 13 cm/s [facility] Work Phone: LV EDV A2C 135 mL [facility] Work Phone: [phone] LV EDV A4C 91 mL [facility] [employer] Work Phone: LV EDV BP 117 mL 67 - 155 mL [facility] [employer] Work Phone: LV EDV Index A2C 57 mL/m2 [facility] [employer] Work Phone: LV EDV Index A4C 38 mL/m2 [facility] Work Phone: LV EDV Index BP 49 mL/m2 [facility] [employer] Work Phone: [phone] LV Ejection Fraction A2C 73 % [facility] [employer] Work Phone: LV Ejection Fraction A4C 73 % [facility] Work Phone: LV ESV A2C 37 mL [facility] [employer] Work Phone: LV ESV A4C 24 mL [facility] [employer] Work Phone: LV ESV BP 31 mL 22 - 58 mL [facility] Work Phone: LV ESV Index A2C 16 mL/m2 [facility] [employer] Work Phone: [phone] LV ESV Index A4C 10 mL/m2 [facility] [employer] Work Phone: [phone] LV ESV Index BP 13 mL/m2 [facility] [employer] Work Phone: [phone] LVOT Area 4.2 cm2 [facility] [employer] Work Phone: [phone] LVOT Cardiac Output 7.6 liter/minute [facility] Work Phone: [phone] LVOT Diameter 2.3 cm [facility] [employer] Work Phone: [phone] LVOT Mean Gradient 3 mmHg [facility] [employer] Work Phone: [phone] LVOT Peak Gradient 6 mmHg [facility] [employer] Work Phone: [phone] LVOT Peak Velocity 1.2 m/s [facility] [employer] Work Phone: [phone] LVOT Stroke Volume Index 41.0 mL/m2 [facility] [employer] Work Phone: [phone] LVOT SV 97.2 ml [facility] [employer] Work Phone: [phone] LVOT VTI 23.4 cm [facility] [employer] Work Phone: [phone] LVOT:AV VTI Index 0.73 [facility] [employer] Work Phone: [phone] MV A Velocity 0.58 m/s [facility] [employer] Work Phone: [phone] MV E Velocity 0.97 m/s [facility] [employer] Work Phone: [phone] MV E Wave Deceleration Time 150.4 ms [facility] [employer] Work Phone: [phone] MV E/A 1.67 [facility] [employer] Work Phone: [phone] RA Area 4C 35.2 mL [facility] [employer] Work Phone: [phone] RA Area 4C 35.3 mL [facility] [employer] Work Phone: [phone] RV Basal Dimension 4.0 cm [facility] [employer] Work Phone: [phone] RV Free Wall Peak S' 18 cm/s [facility] [employer] Work Phone: [phone] TAPSE 2.2 cm 1.7 cm [facility] [employer] Work Phone: [phone] TR Max Velocity 3.07 m/s [facility] [employer] Work Phone: TR Peak Gradient 38 mmHg [facility] [employer] Work Phone: [facility] [employer] Work Phone: US Heart Transthoracicon CV CPACS CBC W Auto Differential pane l (Bld)Ordered By: Laurel Guzman on 11-20-2023 Erythrocyte distribution width (RBC) [Ratio] 15.1 % High 11.5 - 15.0 % [facility] [employer] Hematocrit (Bld) [Volume fraction] 37.7 % Low 40.0 - 52.0 % [facility] [employer] Hemoglobin (Bld) [Mass/Vol] 12.8 g/dL Low 13.0 - 18.0 g/dL [facility] Interpretation and review of laboratory results Abnormal [facility] IPF 6 [facility] [employer] MCH (RBC) [Entitic mass] 31.4 pg 26.0 - 34.0 pg [facility] MCHC (RBC) [Mass/Vol] 34.0 % 30.5 - 36.0 % [facility] [employer] MCV (RBC) [Entitic vol] 92.4 fL 77.0 - 99.0 fL [facility] Platelet mean volume (Bld) [Entitic vol] 10.6 fL 9.0 - 12.7 fL [facility] Platelets (Bld) [#/Vol] 77 10*3/uL Low 140 - 440 10*3/uL [facility] RBC (Bld) [#/Vol] 4.08 10*6/uL Low 4.40 - 5.9 0 10*6/uL [facility] WBC (Bld) [#/Vol] 6.6 10*3/uL 3.6 - 10.7 10*3/uL [facility] CTA Chest vessels WO and W c ontrast Ellen 11-20-2023 [facility] Radiology Study observation (narrative) [facility] [employer] CTA Chest vessels WO and W c ontrast IVOrdered By: Seema Watson on 11-20-2023 [facility] [employer] Work Phone: Laboratory - Chemistry and C hemistry - challengeon 11-20-2023 Lipase [Catalytic activity/Vol] 421 U/L High 23 - 300 U/L [facility] Lipase [Catalytic activity/V ol]on 11-20-2023 Interpretation and review of laboratory results Abnormal [facility] Manual differential performe d Ql (Bld)on 11-20-2023 Anisocytosis Ql (Bld) Slight Abnormal (none) [facility] Band form neutrophils (Bld) [#/Vol] 1.7 10*3/uL High NINF - 0.0 10*3/uL [facility] Band form neutrophils/100 WBC (Bld) 25 % High NINF - 0 % [facility] Bands Manual 25 [facility] Cells Counted Total (Bld) [#] 100 {cells} [facility] Differential Method Manual differential performed [facility] Interpretation and review of laboratory results Abnormal [facility] Leukocyte morphology finding Nom (Bld) Normal [facility] Lymphocytes (Bld) [#/Vol] 1.1 10*3/uL 1.0 - 4.3 10*3/uL [facility] Lymphocytes Manual 16 [facility] Lymphocytes/100 WBC (Bld) 16 % 15 - 45 % [facility] Monocytes (Bld) [#/Vol] 0.3 10*3/uL 0.0 - 0.9 10*3/uL [facility] Monocytes Manual 4 [facility] Monocytes/100 WBC (Bld) 4 % Low 5 - 13 % [facility] Neutrophils (Bld) [#/Vol] 5.3 10*3/uL 1.8 - 7.5 10*3/uL [facility] Neutrophils Manual 55 [facility] Platelet morphology finding Nom (Bld) Normal [facility] Polychromasia LM Ql (Bld) Rare Abnormal (none) [facility] Segmented neutrophils/100 WBC (Bld) 55 % 38 - 82 % [facility] WBC corrected for nucl RBC (Bld) [#/Vol] 6.6 10*3/uL 3.6 - 10.7 10*3/uL [facility] Comprehensive metabolic 1998 panelOrdered By: Taina Lancaster on 11-19-2023 Albumin [Mass/Vol] 3.3 g/dL Low 3.5 - 5.0 g/dL [facility] ALP [Catalytic activity/Vol] 74 U/L 38 - 126 U/L [facility] ALT [Catalytic activity/Vol] 55 U/L High 0 - 49 U/L [facility] Anion gap [Moles/Vol] 10 mmol/L 3 - 13 mmol/L [facility] AST [Catalytic activity/Vol] 68 U/L High 15 - 46 U/L [facility] Bilirubin [Mass/Vol] 3.1 mg/dL High 0.2 - 1 .3 mg/dL [facility] Calcium [Mass/Vol] 8.2 mg/dL Low 8.4 - 10. 4 mg/dL [facility] Chloride [Moles/Vol] 105 mmol/L 98 - 10 7 mmol/L [facility] CO2 [Moles/Vol] 17 mmol/L Low 22 - 30 mmol/L [facility] Creatinine [Mass/Vol] 0.51 mg/dL Low 0.66 - 1.25 mg/dL [facility] GFR/1.73 sq M.predicted (S/P/Bld) [Vol rate/Area] - PINF [facility] Glucose [Mass/Vol] 110 mg/dL High 70 - 100 mg/dL [facility] Interpretation and review of laboratory results Abnormal [facility] Potassium [Moles/Vol] 4.0 mmol/L 3.5 - 5.1 mmol/L [facility] Protein [Mass/Vol] 6.1 g/dL Low 6.3 - 8.2 g/dL [facility] Sodium [Moles/Vol] 131 mmol/L Low 135 - 145 mmol/L [facility] Urea nitrogen [Mass/Vol] 6 mg/dL Low 9 - 20 mg/dL [facility] Laboratory - Chemistry and C hemistry - challengeon 11-19-2023 Lipase [Catalytic activity/Vol] 837 U/L High 23 - 300 U/L [facility] Lipase [Catalytic activity/V ol]on 11-19-2023 Interpretation and review of laboratory results Abnormal [facility] No Panel InformationOrdered By: Kori May on 11-19-2023 FENTANYL SCREEN, URINE Negative Negative [facility] XR Chest 2 Viewson [facility] Radiology Study observation (narrative) [facility] XR Chest 2 ViewsOrdered By: Cedrick Kaur on 11-19-2023 [facility] Work Phone: CBC W Auto Differential pane l (Bld)on 11-18-2023 Basophils (Bld) [#/Vol] 0.0 10*3/uL 0.0 - 0.2 10*3/uL [facility] Basophils/100 WBC (Bld) 0.4 % 0.0 - 2.0 % [facility] Eosinophils (Bld) [#/Vol] 0.0 10*3/uL 0.0 - 0.5 10*3/uL [facility] Eosinophils/100 WBC (Bld) 0.3 % 0.0 - 6.0 % [facility] Erythrocyte distribution width (RBC) [Ratio] 15.4 % High 11.5 - 15.0 % [facility] Hematocrit (Bld) [Volume fraction] 48.8 % 40.0 - 52.0 % [facility] Hemoglobin (Bld) [Mass/Vol] 16.1 g/dL 13.0 - 18.0 g/dL [facility] Immature granulocytes (Bld) [#/Vol] 0.0 10*3/uL NINF - 0.1 10*3/uL [facility] Immature granulocytes/100 WBC (Bld) 0.3 % 0.0 - 2.0 % [facility] Interpretation and review of laboratory results Abnormal [facility] Lymphocytes (Bld) [#/Vol] 1.8 10*3/uL 1.0 - 4.3 10*3/uL [facility] Lymphocytes/100 WBC (Bld) 25.2 % 15.0 - 45.0 % [facility] MCH (RBC) [Entitic mass] 30.9 pg 26.0 - 34.0 pg [facility] MCHC (RBC) [Mass/Vol] 33.0 % 30.5 - 36.0 % [facility] MCV (RBC) [Entitic vol] 93.7 fL 77.0 - 99.0 fL [facility] Monocytes (Bld) [#/Vol] 0.4 10*3/uL 0.0 - 0.9 10*3/uL [facility] Monocytes/100 WBC (Bld) 5.9 % 5.0 - 13.0 % [facility] Neutrophils (Bld) [#/Vol] 4.9 10*3/uL 1.8 - 7.5 10*3/uL [facility] Neutrophils/100 WBC (Bld) 67.9 % 38.0 - 82.0 % [facility] Nucleated RBC/100 WBC (Bld) [Ratio] 0.0 % [facility] Platelet mean volume (Bld) [Entitic vol] 9.8 fL 9.0 - 12.7 fL [facility] Platelets (Bld) [#/Vol] 176 10*3/uL 140 - 440 10*3/uL [facility] RBC (Bld) [#/Vol] 5.21 10*6/uL 4.40 - 5.9 0 10*6/uL [facility] WBC (Bld) [#/Vol] 7.1 10*3/uL 3.6 - 10.7 10*3/uL [facility] CT Abdomen and Pelvis W cont rast Ellen 11-18-2023 [facility] Radiology Study observation (narrative) [facility] CT Abdomen and Pelvis W cont rast IVOrdered By: Gagan Rich on 11-18-2023 [facility] Work Phone: Comprehensive metabolic 1998 panelon 11-18-2023 Albumin [Mass/Vol] 4.4 g/dL 3.5 - 5.0 g/dL [facility] ALP [Catalytic activity/Vol] 156 U/L High 38 - 126 U/L [facility] ALT [Catalytic activity/Vol] 120 U/L High 0 - 49 U/L [facility] Anion gap [Moles/Vol] 11 mmol/L 3 - 13 mmol/L [facility] AST [Catalytic activity/Vol] 198 U/L High 15 - 46 U/L [facility] Bilirubin [Mass/Vol] 1.5 mg/dL High 0.2 - 1 .3 mg/dL [facility] Calcium [Mass/Vol] 9.4 mg/dL 8.4 - 10. 4 mg/dL [facility] Chloride [Moles/Vol] 103 mmol/L 98 - 10 7 mmol/L [facility] CO2 [Moles/Vol] 25 mmol/L 22 - 30 mmol/L [facility] Creatinine [Mass/Vol] 0.64 mg/dL Low 0.66 - 1.25 mg/dL [facility] GFR/1.73 sq M.predicted (S/P/Bld) [Vol rate/Area] - PINF [facility] Glucose [Mass/Vol] 126 mg/dL High 70 - 100 mg/dL [facility] Interpretation and review of laboratory results Abnormal [facility] Potassium [Moles/Vol] 4.8 mmol/L 3.5 - 5.1 mmol/L [facility] Protein [Mass/Vol] 7.7 g/dL 6.3 - 8.2 g/dL [facility] Sodium [Moles/Vol] 140 mmol/L 135 - 145 mmol/L [facility] Urea nitrogen [Mass/Vol] 5 mg/dL Low 9 - 20 mg/dL [facility] Albumin [Mass/Vol] 4.8 g/dL 3.5 - 5.0 g/dL [facility] ALP [Catalytic activity/Vol] 145 U/L High 38 - 126 U/L [facility] ALT [Catalytic activity/Vol] 148 U/L High 0 - 49 U/L [facility] Anion gap [Moles/Vol] 18 mmol/L High 3 - 13 mmol/L [facility] AST [Catalytic activity/Vol] 249 U/L High 15 - 46 U/L [facility] Bilirubin [Mass/Vol] 1.0 mg/dL 0.2 - 1 .3 mg/dL [facility] Calcium [Mass/Vol] 9.1 mg/dL 8.4 - 10. 4 mg/dL [facility] Chloride [Moles/Vol] 104 mmol/L 98 - 10 7 mmol/L [facility] CO2 [Moles/Vol] 18 mmol/L Low 22 - 30 mmol/L [facility] Creatinine [Mass/Vol] 0.65 mg/dL Low 0.66 - 1.25 mg/dL [facility] GFR/1.73 sq M.predicted (S/P/Bld) [Vol rate/Area] - PINF [facility] Glucose [Mass/Vol] 155 mg/dL High 70 - 100 mg/dL [facility] Potassium [Moles/Vol] 4.0 mmol/L 3.5 - 5.1 mmol/L [facility] Protein [Mass/Vol] 8.4 g/dL High 6.3 - 8.2 g/dL [facility] Sodium [Moles/Vol] 140 mmol/L 135 - 145 mmol/L [facility] Urea nitrogen [Mass/Vol] 5 mg/dL Low 9 - 20 mg/dL [facility] Ethanol (Bld) [Mass/Vol]on Ethanol [Mass/Vol] 0.027 g/dL High 0.000 - 0.010 g/dL [facility] Laboratory - Chemistry and C hemistry - challengeon 11-18-2023 Triglyceride [Mass/Vol] 232 mg/dL High NINF - 150 mg/dL [facility] Laboratory - Chemistry and C hemistry - challengeOrdered By: Francine Murphy on 11-18-2023 Lipase [Catalytic activity/Vol] U/L High 23 - 300 U/L [facility] Laboratory - Chemistry and C hemistry - challengeOrdered By: Tessa Velez on 11-18-2023 Lipase [Catalytic activity/Vol] U/L High 23 - 300 U/L [facility] Laboratory - Drug toxicology on 11-18-2023 Amphetamines Screen method >1000 ng/mL Ql (U) Negative [facility] Barbiturates Screen method >200 ng/mL Ql (U) Negative [facility] Benzodiazepines Ql (U) Negative [facility] Methadone Screen Ql (U) Negative [facility] Opiates Screen Ql (U) Positive [facility] oxyCODONE Ql (U) Negative [facility] Phencyclidine Ql (U) Negative [facility] Laboratory - Microbiology an d Antimicrobial susceptibilityOrdered By: Nevaeh Erickson on 11-18-2023 SARS-CoV-2 (COVID-19) Ag IA.rapid Ql (Resp) Negative Negative [facility] Lipase [Catalytic activity/V ol]Ordered By: Francine Murphy on 11-18-2023 Interpretation and review of laboratory results Abnormal [facility] Lipase [Catalytic activity/V ol]Ordered By: Tessa Velez on 11-18-2023 Interpretation and review of laboratory results Abnormal [facility] No Panel Informationon 11-17 COCAINE METAB. SCREEN Negative [facility] Interpretation and review of laboratory results Abnormal [facility] SARS-CoV-2 (COVID-19) Ag IA. rapid Ql (Resp)Ordered By: Nevaeh Erickson on 11-18-2023 Interpretation and review of laboratory results Normal [facility] Triglyceride [Mass/Vol]on Interpretation and review of laboratory results Abnormal [facility] Urinalysis complete panel (U )Ordered By: Wanda Frias on 11-18-2023 Bacteria LM.HPF (Urine sed) [#/Area] Negative Negative /HPF [facility] Bilirubin Ql (U) Negative Negative mg/dL [facility] Clarity (U) Clear Clear [facility] Color (U) Yellow Lt. Yellow [facility] Epithelial cells.squamous LM.HPF (Urine sed) [#/Area] Negative [facility] Glucose Ql (U) Normal Normal (<70) mg/dL [facility] Hemoglobin Ql (U) Negative Negative mg/dL [facility] Hyaline casts Auto (Urine sed) [#/Area] 6-10 Abnormal Negative /LPF [facility] Interpretation and review of laboratory results Abnormal [facility] Ketones (U) [Mass/Vol] 10 mg/dL Abnormal Negative [facility] Leukocyte esterase Test strip Ql (U) Negative Negative Teofilo/uL [facility] Mucus LM.HPF (Urine sed) [#/Area] Many Abnormal Negative /LPF [facility] Nitrite Ql (U) Negative Negative [facility] pH (U) 6.0 [pH] 5.0 - 8.0 pH [facility] Protein (U) [Mass/Vol] 30 mg/dL Abnormal Negative [facility] RBC LM.HPF (Urine sed) [#/Area] 0-2 [facility] Specific gravity (U) [Rel density] 1.044 High 1.005 - 1.030 [facility] Urobilinogen (U) [Mass/Vol] Normal Normal (0-1) mg/dL [facility] WBC LM.HPF (Urine sed) [#/Area] 3-5 [facility] Lipaseon 10-22-2023 Lipase [Catalytic activity/Vol] 574 U/L High 23 - 300 U/L [facility] Lipase [Catalytic activity/V ol]on 10-22-2023 Interpretation and review of laboratory results Abnormal [facility] Medication Assisted Treatmen t Panel (MATP)Ordered By: Ana Browne on 10-22-2023 Amphetamines Ql (U) Negative Negative [facility] Barbiturates screen method Nom (U) Negative Negative [facility] Benzodiazepines screen method Nom (U) Negative Negative [facility] BUPRENORPHINE SCREEN Negative Negative [facility] Cocaine Ql (U) Negative Negative [facility] Ethanol [Mass/Vol] Negative Negative [facility] FENTANYL Negative Negative [facility] Methadone Ql (U) Negative Negative [facility] Opiates Screen Ql (U) Negative Negative [facility] OXYCODONE/OXYMORPHONE Negative Negative [facility] PCP Negative Negative [facility] THC Negative Negative [facility] The expected value f or the [...] treatment only. Analysis performed using non-forensic procedures. [facility] Laboratory - Chemistry and C hemistry - challengeOrdered By: Dada Rich on 10-17-2023 Triglyceride [Mass/Vol] 197 mg/dL High NINF - 150 mg/dL [facility] Triglyceride [Mass/Vol]Order ed By: Dada Rich on 10-17-2023 Interpretation and review of laboratory results Abnormal [facility] CBC panel Auto (Bld)on 10-15 Erythrocyte distribution width (RBC) [Ratio] 14.5 % 11.5 - 15.0 % [facility] Hematocrit (Bld) [Volume fraction] 46.9 % 40.0 - 52.0 % [facility] Hemoglobin (Bld) [Mass/Vol] 15.4 g/dL 13.0 - 18.0 g/dL [facility] Interpretation and review of laboratory results Normal [facility] MCH (RBC) [Entitic mass] 31.2 pg 26.0 - 34.0 pg [facility] MCHC (RBC) [Mass/Vol] 32.8 % 30.5 - 36.0 % [facility] MCV (RBC) [Entitic vol] 94.9 fL 77.0 - 99.0 fL [facility] Platelet mean volume (Bld) [Entitic vol] 9.8 fL 9.0 - 12.7 fL [facility] Platelets (Bld) [#/Vol] 189 10*3/uL 140 - 440 10*3/uL [facility] RBC (Bld) [#/Vol] 4.94 10*6/uL 4.40 - 5.9 0 10*6/uL [facility] WBC (Bld) [#/Vol] 6.9 10*3/uL 3.6 - 10.7 10*3/uL [facility] Erythrocyte distribution width (RBC) [Ratio] 14.7 % 11.5 - 15.0 % [facility] Hematocrit (Bld) [Volume fraction] 47.2 % 40.0 - 52.0 % [facility] Hemoglobin (Bld) [Mass/Vol] 15.6 g/dL 13.0 - 18.0 g/dL [facility] Interpretation and review of laboratory results Normal [facility] MCH (RBC) [Entitic mass] 30.9 pg 26.0 - 34.0 pg [facility] MCHC (RBC) [Mass/Vol] 33.1 % 30.5 - 36.0 % [facility] MCV (RBC) [Entitic vol] 93.5 fL 77.0 - 99.0 fL [facility] Platelet mean volume (Bld) [Entitic vol] 9.8 fL 9.0 - 12.7 fL [facility] Comment on above: MPV is a calculated measurement using platelet volume ratio Platelets (Bld) [#/Vol] 208 10*3/uL 140 - 440 10*3/uL [facility] RBC (Bld) [#/Vol] 5.05 10*6/uL 4.40 - 5.9 0 10*6/uL [facility] WBC (Bld) [#/Vol] 8.9 10*3/uL 3.6 - 10.7 10*3/uL [facility] Comprehensive metabolic 1998 panelon 10-16-2023 Albumin [Mass/Vol] 4.5 g/dL 3.5 - 5.0 g/dL [facility] ALP [Catalytic activity/Vol] 158 U/L High 38 - 126 U/L [facility] ALT [Catalytic activity/Vol] 159 U/L High 0 - 49 U/L [facility] Anion gap [Moles/Vol] 9 mmol/L 3 - 13 mmol/L [facility] AST [Catalytic activity/Vol] 149 U/L High 15 - 46 U/L [facility] Bilirubin [Mass/Vol] 1.1 mg/dL 0.2 - 1 .3 mg/dL [facility] Calcium [Mass/Vol] 9.6 mg/dL 8.4 - 10. 4 mg/dL [facility] Chloride [Moles/Vol] 103 mmol/L 98 - 10 7 mmol/L [facility] CO2 [Moles/Vol] 28 mmol/L 22 - 30 mmol/L [facility] Creatinine [Mass/Vol] 0.68 mg/dL 0.66 - 1.25 mg/dL [facility] GFR/1.73 sq M.predicted (S/P/Bld) [Vol rate/Area] - PINF [facility] Comment on above: Calculation based on the Chronic Kidney Disease Epidemiology Collaboration (CKD-EPI) equation refit without adjustment for race Glucose [Mass/Vol] 104 mg/dL High 70 - 100 mg/dL [facility] Potassium [Moles/Vol] 4.1 mmol/L 3.5 - 5.1 mmol/L [facility] Protein [Mass/Vol] 8.1 g/dL 6.3 - 8.2 g/dL [facility] Sodium [Moles/Vol] 141 mmol/L 135 - 145 mmol/L [facility] Urea nitrogen [Mass/Vol] 6 mg/dL Low 9 - 20 mg/dL [facility] Albumin [Mass/Vol] 4.8 g/dL 3.5 - 5.0 g/dL [facility] ALP [Catalytic activity/Vol] 158 U/L High 38 - 126 U/L [facility] ALT [Catalytic activity/Vol] 173 U/L High 0 - 49 U/L [facility] Anion gap [Moles/Vol] 13 mmol/L 3 - 13 mmol/L [facility] AST [Catalytic activity/Vol] 235 U/L High 15 - 46 U/L [facility] Bilirubin [Mass/Vol] 0.8 mg/dL 0.2 - 1 .3 mg/dL [facility] Calcium [Mass/Vol] 9.7 mg/dL 8.4 - 10. 4 mg/dL [facility] Chloride [Moles/Vol] 100 mmol/L 98 - 10 7 mmol/L [facility] CO2 [Moles/Vol] 25 mmol/L 22 - 30 mmol/L [facility] Creatinine [Mass/Vol] 0.62 mg/dL Low 0.66 - 1.25 mg/dL [facility] GFR/1.73 sq M.predicted (S/P/Bld) [Vol rate/Area] - PINF [facility] Comment on above: Calculation based on the Chronic Kidney Disease Epidemiology Collaboration (CKD-EPI) equation refit without adjustment for race Glucose [Mass/Vol] 126 mg/dL High 70 - 100 mg/dL [facility] Interpretation and review of laboratory results Abnormal [facility] Potassium [Moles/Vol] 4.0 mmol/L 3.5 - 5.1 mmol/L [facility] Protein [Mass/Vol] 8.8 g/dL High 6.3 - 8.2 g/dL [facility] Sodium [Moles/Vol] 138 mmol/L 135 - 145 mmol/L [facility] Urea nitrogen [Mass/Vol] 5 mg/dL Low 9 - 20 mg/dL [facility] Laboratory - Chemistry and C hemistry - challengeon 10-16-2023 Lipase [Catalytic activity/Vol] 1185 U/L High 23 - 300 U/L [facility] Troponin I.cardiac [Mass/Vol] 0.016 ng/mL NINF - 0.034 ng/mL [facility] Laboratory - Chemistry and C hemistry - challengeOrdered By: Silvia Prince on 10-16-2023 Lipase [Catalytic activity/Vol] U/L High 23 - 300 U/L [facility] Lipase [Catalytic activity/V ol]Ordered By: Silvia Prince on 10-16-2023 Interpretation and review of laboratory results Abnormal [facility] Result manually entered, interpret with caution. [facility] No Panel Informationon 10-15 Interpretation and review of laboratory results Abnormal [facility] Extra Tube Hold for add-ons. [facility] Comment on above: Auto resulted. [facility] P Lyman 57 degrees [facility] NE Interval 158 ms [facility] QRS Lyman 9 degrees [facility] QRSD Interval 89 ms [facility] QT Interval 391 ms [facility] QTC Interval 465 ms [facility] T Wave Lyman -9 degrees [facility] Sinus rhythm LVH by voltage Nonspecific T abnormalities, inferior leads - similar to prior EKG 03/15/22 Electronically Signed On 10-16-2023 02:06:16 EDT by Idris Curtis MD - 10/16/2023 IMPRESSION: Sinus rhythm LVH by voltage Nonspecific T abnormalities, inferior leads - similar to prior EKG 03/15/22 Electronically Signed On 10-16-2023 02:06:16 EDT by Idris Danielson [facility] Troponin I.cardiac [Mass/Vol ]on 10-16-2023 Interpretation and review of laboratory results Normal [facility] Patients with high levels of Biotin oral intake (ie >5 mg/day) may have falsely decreased Troponin levels. [facility] US Abdomen limitedon 024 1. Gallbladder appea rs unremarkable. 2. Fatty infiltration of the liver. Report Dictated on Electronically Signed By: Adrian Mondragon MD Electronically Signed Date/Time: 10/16/2023 1:29 PM EDT [facility] Patient Name: RORO CLAIRE : 1985 [...] focal lesion identified. Gallbladder: Normal. Per the electrophysiology technologist, the sonographic Li's sign was negative. Bile ducts: No intrahepatic and extrahepatic biliary dilatation Common bile duct: 3 mm Right kidney: Normal size measuring 12.1 x 6.2 x 5.5 cm. Normal parenchymal echogenicity without solid mass or hydronephrosis. Ascites: None [facility] Adrian Mondragon MD - 10/16/2023 Patient [...] focal lesion identified. Gallbladder: Normal. Per the electrophysiology technologist, the sonographic Li's sign was negative. [...] Electronically Signed Date/Time: 10/16/2023 1:29 PM EDT [facility] Radiology Study observation (narrative) [facility] US Abdomen limitedOrdered By : Adrian Mondragon on 10-16-2023 [facility] Work Phone: [employer] sign[employer] 10-16-2023 Heart rate 85 /min bpm [facility] Medication Assisted Treatmen t Panel (MATP)Ordered By: Kori May on 10-14-2023 Amphetamines Ql (U) Negative Negative [facility] Barbiturates screen method Nom (U) Negative Negative [facility] Benzodiazepines screen method Nom (U) Negative Negative [facility] BUPRENORPHINE SCREEN Negative Negative [facility] Cocaine Ql (U) Negative Negative [facility] Ethanol [Mass/Vol] Positive Negative [facility] FENTANYL Negative Negative [facility] Methadone Ql (U) Negative Negative [facility] Opiates Screen Ql (U) Negative Negative [facility] OXYCODONE/OXYMORPHONE Negative Negative [facility] PCP Negative Negative [facility] THC Negative Negative [facility] The expected value f or the [...] treatment only. Analysis performed using non-forensic procedures. [facility] CBC W Auto Differential pane l (Bld)on 2023 Basophils (Bld) [#/Vol] 0.0 10*3/uL 0.0 - 0.2 10*3/uL [facility] Basophils/100 WBC (Bld) 0.6 % 0.0 - 2.0 % [facility] Eosinophils (Bld) [#/Vol] 0.1 10*3/uL 0.0 - 0.5 10*3/uL [facility] Eosinophils/100 WBC (Bld) 0.7 % 0.0 - 6.0 % [facility] Erythrocyte distribution width (RBC) [Ratio] 14.2 % 11.5 - 15.0 % [facility] Hematocrit (Bld) [Volume fraction] 42.1 % 40.0 - 52.0 % [facility] Hemoglobin (Bld) [Mass/Vol] 14.3 g/dL 13.0 - 18.0 g/dL [facility] Immature granulocytes (Bld) [#/Vol] 0.0 10*3/uL NINF - 0.1 10*3/uL [facility] Immature granulocytes/100 WBC (Bld) 0.6 % 0.0 - 2.0 % [facility] Interpretation and review of laboratory results Normal [facility] Lymphocytes (Bld) [#/Vol] 2.6 10*3/uL 1.0 - 4.3 10*3/uL [facility] Lymphocytes/100 WBC (Bld) 39.2 % 15.0 - 45.0 % [facility] MCH (RBC) [Entitic mass] 31.2 pg 26.0 - 34.0 pg [facility] MCHC (RBC) [Mass/Vol] 34.0 % 30.5 - 36.0 % [facility] MCV (RBC) [Entitic vol] 91.7 fL 77.0 - 99.0 fL [facility] Monocytes (Bld) [#/Vol] 0.4 10*3/uL 0.0 - 0.9 10*3/uL [facility] Monocytes/100 WBC (Bld) 6.4 % 5.0 - 13.0 % [facility] Neutrophils (Bld) [#/Vol] 3.5 10*3/uL 1.8 - 7.5 10*3/uL [facility] Neutrophils/100 WBC (Bld) 52.5 % 38.0 - 82.0 % [facility] Nucleated RBC/100 WBC (Bld) [Ratio] 0.0 % [facility] Platelet mean volume (Bld) [Entitic vol] 9.5 fL 9.0 - 12.7 fL [facility] Platelets (Bld) [#/Vol] 226 10*3/uL 140 - 440 10*3/uL [facility] RBC (Bld) [#/Vol] 4.59 10*6/uL 4.40 - 5.9 0 10*6/uL [facility] WBC (Bld) [#/Vol] 6.7 10*3/uL 3.6 - 10.7 10*3/uL [facility] Comprehensive metabolic 1998 panelon 2023 Albumin [Mass/Vol] 4.7 g/dL 3.5 - 5.0 g/dL [facility] ALP [Catalytic activity/Vol] 117 U/L 38 - 126 U/L [facility] ALT [Catalytic activity/Vol] 408 U/L High 0 - 49 U/L [facility] Anion gap [Moles/Vol] 13 mmol/L 3 - 13 mmol/L [facility] AST [Catalytic activity/Vol] 364 U/L High 15 - 46 U/L [facility] Bilirubin [Mass/Vol] 0.8 mg/dL 0.2 - 1 .3 mg/dL [facility] Calcium [Mass/Vol] 9.7 mg/dL 8.4 - 10. 4 mg/dL [facility] Chloride [Moles/Vol] 100 mmol/L 98 - 10 7 mmol/L [facility] CO2 [Moles/Vol] 24 mmol/L 22 - 30 mmol/L [facility] Creatinine [Mass/Vol] 0.55 mg/dL Low 0.66 - 1.25 mg/dL [facility] GFR/1.73 sq M.predicted (S/P/Bld) [Vol rate/Area] - PINF [facility] Comment on above: Calculation based on the Chronic Kidney Disease Epidemiology Collaboration (CKD-EPI) equation refit without adjustment for race Glucose [Mass/Vol] 106 mg/dL High 70 - 100 mg/dL [facility] Interpretation and review of laboratory results Abnormal [facility] Potassium [Moles/Vol] 3.4 mmol/L Low 3.5 - 5.1 mmol/L [facility] Protein [Mass/Vol] 8.0 g/dL 6.3 - 8.2 g/dL [facility] Sodium [Moles/Vol] 137 mmol/L 135 - 145 mmol/L [facility] Urea nitrogen [Mass/Vol] 3 mg/dL Low 9 - 20 mg/dL [facility] Laboratory - Chemistry and C hemistry - challengeon 2023 Lipase [Catalytic activity/Vol] 2537 U/L High 23 - 300 U/L [facility] Lipase [Catalytic activity/V ol]on 2023 Interpretation and review of laboratory results Abnormal [facility] Urinalysis complete panel (U )Ordered By: Brandy Morelos on 2023 Bacteria LM.HPF (Urine sed) [#/Area] Negative Negative /HPF [facility] Bilirubin Ql (U) Negative Negative mg/dL [facility] Clarity (U) Clear Clear [facility] Color (U) Yellow Lt. Yellow [facility] Epithelial cells.squamous LM.HPF (Urine sed) [#/Area] 0-2 [facility] Glucose Ql (U) Normal Normal (<70) mg/dL [facility] Hemoglobin Ql (U) Negative Negative mg/dL [facility] Interpretation and review of laboratory results Abnormal [facility] Ketones (U) [Mass/Vol] Negative Negat chan mg/dL [facility] Leukocyte esterase Test strip Ql (U) Negative Negative Teofilo/uL [facility] Mucus LM.HPF (Urine sed) [#/Area] Moderate Abnormal Negative /LPF [facility] Nitrite Ql (U) Negative Negative [facility] pH (U) 6.0 [pH] 5.0 - 8.0 pH [facility] Protein (U) [Mass/Vol] 10 mg/dL Abnormal Negative [facility] RBC LM.HPF (Urine sed) [#/Area] 0-2 [facility] Specific gravity (U) [Rel density] 1.020 1.005 - 1.030 [facility] Urobilinogen (U) [Mass/Vol] Normal Normal (0-1) mg/dL [facility] WBC LM.HPF (Urine sed) [#/Area] 0-2 [facility] MEDICATION ASSISTED TREATMEN T PANELOrdered By: Kori May on 09-23-2023 Amphetamines Ql (U) Negative Negative [facility] Barbiturates screen method Nom (U) Positive Negative [facility] Benzodiazepines screen method Nom (U) Negative Negative [facility] BUPRENORPHINE SCREEN Positive Negative [facility] Cocaine Ql (U) Negative Negative [facility] Ethanol [Mass/Vol] Negative Negative [facility] FENTANYL Negative Negative [facility] Methadone Ql (U) Negative Negative [facility] Opiates Screen Ql (U) Negative Negative [facility] OXYCODONE/OXYMORPHONE Negative Negative [facility] PCP Negative Negative [facility] THC Positive Negative [facility] The expected value f or the [...] treatment only. Analysis performed using non-forensic procedures. [facility] Medication Assisted Treatmen t Panel (MATP)Ordered By: Ana Browne on 08-19-2023 Amphetamines Ql (U) Negative Negative [facility] Barbiturates screen method Nom (U) Positive Negative [facility] Benzodiazepines screen method Nom (U) Negative Negative [facility] BUPRENORPHINE SCREEN Positive Negative [facility] Cocaine Ql (U) Negative Negative [facility] Ethanol [Mass/Vol] Negative Negative [facility] FENTANYL Negative Negative [facility] Methadone Ql (U) Negative Negative [facility] Opiates Screen Ql (U) Negative Negative [facility] OXYCODONE/OXYMORPHONE Negative Negative [facility] PCP Negative Negative [facility] THC Negative Negative [facility] The expected value f or the [...] treatment only. Analysis performed using non-forensic procedures. [facility] Laboratory - Drug toxicology Ordered By: Connie Da Silva on 08-11-2023 Amphetamines Screen method >1000 ng/mL Ql (U) Negative [facility] Barbiturates Screen method >200 ng/mL Ql (U) Negative [facility] Benzodiazepines Ql (U) Negative [facility] Methadone Screen Ql (U) Negative [facility] Opiates Screen Ql (U) Negative [facility] oxyCODONE Ql (U) Negative [facility] Phencyclidine Ql (U) Negative [facility] No Panel InformationOrdered By: Cory Baldomero on 08-11-2023 BUPRENORPHINE SCREEN Negative Negative [facility] Buprenorphine (Suboxone) has been screened for by Immunoassay at 5 ng/mL threshold. POSITIVE results are not confirmed by a more specific alternative method unless requested. If confirmation is needed, request confirmation under separate order. NOTE: These results are for medical treatment only. Analysis performed using non-forensic procedures. [facility] No Panel InformationOrdered By: Connie Da Silva on 08-11-2023 COCAINE METAB. SCREEN Negative [facility] The expected value f or all of [...] is needed, request confirmation under separate order. [facility] Urinalysis complete panel (U )on 08-11-2023 Bilirubin Ql (U) Negative Negative mg/dL [facility] Clarity (U) Clear Clear [facility] Color (U) Light Yellow Lt. Yellow [facility] Glucose Ql (U) Normal Normal (<70) mg/dL [facility] Hemoglobin Ql (U) Negative Negative mg/dL [facility] Interpretation and review of laboratory results Normal [facility] Ketones (U) [Mass/Vol] Negative Negat chan mg/dL [facility] Leukocyte esterase Test strip Ql (U) Negative Negative Teofilo/uL [facility] Nitrite Ql (U) Negative Negative [facility] pH (U) 6.0 [pH] 5.0 - 8.0 pH [facility] Protein (U) [Mass/Vol] Negative Negat chan mg/dL [facility] Specific gravity (U) [Rel density] 1.008 1.005 - 1.030 [facility] Urobilinogen (U) [Mass/Vol] Normal Normal (0-1) mg/dL [facility] CBC W Auto Differential pane l (Bld)Ordered By: Zoey Delaney on 08-10-2023 Erythrocyte distribution width (RBC) [Ratio] 14.7 % 11.5 - 15.0 % [facility] Hematocrit (Bld) [Volume fraction] 46.8 % 40.0 - 52.0 % [facility] Hemoglobin (Bld) [Mass/Vol] 15.6 g/dL 13.0 - 18.0 g/dL [facility] Interpretation and review of laboratory results Normal [facility] MCH (RBC) [Entitic mass] 31.0 pg 26.0 - 34.0 pg [facility] MCHC (RBC) [Mass/Vol] 33.3 % 30.5 - 36.0 % [facility] MCV (RBC) [Entitic vol] 93.0 fL 77.0 - 99.0 fL [facility] Platelet mean volume (Bld) [Entitic vol] 9.3 fL 9.0 - 12.7 fL [facility] Platelets (Bld) [#/Vol] 273 10*3/uL 140 - 440 10*3/uL [facility] RBC (Bld) [#/Vol] 5.03 10*6/uL 4.40 - 5.9 0 10*6/uL [facility] WBC (Bld) [#/Vol] 9.9 10*3/uL 3.6 - 10.7 10*3/uL [facility] CK [Catalytic activity/Vol]o n 08-10-2023 Interpretation and review of laboratory results Normal [facility] Comprehensive metabolic 1998 panelon 08-10-2023 Albumin [Mass/Vol] 5.0 g/dL 3.5 - 5.0 g/dL [facility] ALP [Catalytic activity/Vol] 135 U/L High 38 - 126 U/L [facility] ALT [Catalytic activity/Vol] 176 U/L High 0 - 49 U/L [facility] Anion gap [Moles/Vol] 22 mmol/L High 3 - 13 mmol/L [facility] AST [Catalytic activity/Vol] 237 U/L High 15 - 46 U/L [facility] Bilirubin [Mass/Vol] 0.7 mg/dL 0.2 - 1 .3 mg/dL [facility] Calcium [Mass/Vol] 9.1 mg/dL 8.4 - 10. 4 mg/dL [facility] Chloride [Moles/Vol] 105 mmol/L 98 - 10 7 mmol/L [facility] CO2 [Moles/Vol] 18 mmol/L Low 22 - 30 mmol/L [facility] Creatinine [Mass/Vol] 0.78 mg/dL 0.66 - 1.25 mg/dL [facility] GFR/1.73 sq M.predicted MDRD (S/P/Bld) [Vol rate/Area] - PINF [facility] Comment on above: Calculation based on the Chronic Kidney Disease Epidemiology Collaboration (CKD-EPI) equation refit without adjustment for race Glucose [Mass/Vol] 112 mg/dL High 70 - 100 mg/dL [facility] Interpretation and review of laboratory results Abnormal [facility] Potassium [Moles/Vol] 3.8 mmol/L 3.5 - 5.1 mmol/L [facility] Protein [Mass/Vol] 8.8 g/dL High 6.3 - 8.2 g/dL [facility] Sodium [Moles/Vol] 145 mmol/L 135 - 145 mmol/L [facility] Urea nitrogen [Mass/Vol] 5 mg/dL Low 9 - 20 mg/dL [facility] Ethanol (Bld) [Mass/Vol]Orde red By: Amber Junior on 08-10-2023 Ethanol [Mass/Vol] 0.392 g/dL Critically high 0.000 - 0.010 g/dL [facility] Interpretation and review of laboratory results Abnormal [facility] Laboratory - Chemistry and C hemistry - challengeon 08-10-2023 Lipase [Catalytic activity/Vol] 246 U/L 23 - 300 U/L [facility] Beta hydroxybutyrate [Mass/Vol] 1.76 mg/dL 0.20 - 2.81 mg/dL [facility] CK [Catalytic activity/Vol] 125 U/L 30 - 170 U/L [facility] Laboratory - Chemistry and C hemistry - challengeOrdered By: Frances Eisenberg on 08-10-2023 Base excess Calc (BldV) [Moles/Vol] -1.7000 mmol/L -3.0 - 3.0 mmol/L [facility] CO2 (BldV) [Partial pressure] 38.1 mm[Hg] Low [facility] CO2 [Moles/Vol] 24.0 mmol/L 24.0 - 28.0 mmol/L [facility] HCO3 (Bld) [Moles/Vol] 22.8 mmol/L Low 23.0 - 27.0 mmol/L [facility] Oxygen (BldV) [Partial pressure] 55.0 mm[Hg] mm Hg [facility] pH (BldV) 7.395 [pH] 7.330 - 7.430 [facility] Laboratory - Hematology and Cell countsOrdered By: Frances Eisenberg on 08-10-2023 Hemoglobin (Bld) [Mass/Vol] 15.8 g/dL Screen only [facility] Laboratory - Hematology and Cell countson 08-10-2023 Anisocytosis Ql (Bld) Slight Abnormal (none) [facility] Band form neutrophils (Bld) [#/Vol] 0.2 10*3/uL High NINF - 0.0 10*3/uL [facility] Band form neutrophils/100 WBC (Bld) 2 % High NINF - 0 % [facility] Dominic cells LM Ql (Bld) Rare Abnormal (none) [facility] Lymphocytes (Bld) [#/Vol] 4.9 10*3/uL High 1.0 - 4.3 10*3/uL [facility] Lymphocytes/100 WBC (Bld) 49 % High 15 - 45 % [facility] Macrocytes Ql (Bld) Slight Abnormal (none) [facility] Monocytes (Bld) [#/Vol] 0.5 10*3/uL 0.0 - 0.9 10*3/uL [facility] Monocytes/100 WBC (Bld) 5 % 5 - 13 % [facility] Neutrophils (Bld) [#/Vol] 3.9 10*3/uL 1.8 - 7.5 10*3/uL [facility] Poikilocytosis LM Ql (Bld) Rare Abnormal (none) [facility] Polychromasia LM Ql (Bld) Rare Abnormal (none) [facility] RBC morphology finding Nom (Bld) abnormal [facility] Segmented neutrophils/100 WBC (Bld) 37 % Low 38 - 82 % [facility] Variant lymphocytes (Bld) [#/Vol] 0.8 10*3/uL High NINF - 0.0 10*3/uL [facility] Variant lymphocytes/100 WBC (Bld) 8 % High NINF - 0 % [facility] Laboratory - Microbiology an d Antimicrobial susceptibilityOrdered By: Marilynn Flaherty on 08-10-2023 SARS-CoV-2 (COVID-19) Ag IA.rapid Ql (Resp) Negative Negative [facility] Comment on above: A negative result do es not rule out the possibility of SARS-CoV-2 infection. NAAT-based methods should be considered for symptomatic patients presenting greater than seven days after onset of symptoms. Method: Lateral flow immunoassay. Fact sheets for healthcare providers and patients can be found at the following sites: https://www.fda.gov/media/126075/download https://www.fda.gov/media/659498/download Lipase [Catalytic activity/V ol]on 08-10-2023 Interpretation and review of laboratory results Normal [facility] No Panel InformationOrdered By: Frances Eisenberg on 08-10-2023 Interpretation and review of laboratory results Abnormal [facility] Source Of Oxygen Room Air [facility] Assessment of oxygenation is best done with an arterial blood gas determination. Reference ranges for pO2, bicarbonate, and base excess are for mixed venous blood. Specimens drawn from a peripheral vein will often have higher values. [facility] No Panel Informationon 08-09 Interpretation and review of laboratory results Normal [facility] Atypical Lymphocytes Manual 8 [facility] Bands Manual 2 [facility] Basophils Manual [facility] Blasts Manual [facility] Eosinophils Manual [facility] Interpretation and review of laboratory results Abnormal [facility] Lymphocytes Manual 49 [facility] Metamyelocytes Manual [facility] Monocytes Manual 5 [facility] Myelocytes Manual [facility] Neutrophils Manual 37 [facility] Promyelocytes Manual [facility] Unclassified Cells, Manual [facility] SARS-CoV-2 (COVID-19) Ag IA. rapid Ql (Resp)Ordered By: Marilynn Flaherty on 08-10-2023 Interpretation and review of laboratory results Normal [facility] Vital signsOrdered By: Nedra Eisenberg on 08-10-2023 Oxygen saturation in Venous blood 84.7 % [facility] CBC W Auto Differential pane l (Bld)on 06-28-2023 Basophils (Bld) [#/Vol] 0.0 10*3/uL 0.0 - 0.2 10*3/uL [facility] Basophils/100 WBC (Bld) 0.7 % 0.0 - 2.0 % [facility] Eosinophils (Bld) [#/Vol] 0.1 10*3/uL 0.0 - 0.5 10*3/uL [facility] Eosinophils/100 WBC (Bld) 2.4 % 0.0 - 6.0 % [facility] Erythrocyte distribution width (RBC) [Ratio] 15.0 % 11.5 - 15.0 % [facility] Hematocrit (Bld) [Volume fraction] 37.8 % Low 40.0 - 52.0 % [facility] Hemoglobin (Bld) [Mass/Vol] 12.8 g/dL Low 13.0 - 18.0 g/dL [facility] Immature granulocytes (Bld) [#/Vol] 0.0 10*3/uL NINF - 0.1 10*3/uL [facility] Immature granulocytes/100 WBC (Bld) 0.7 % 0.0 - 2.0 % [facility] Interpretation and review of laboratory results Abnormal [facility] IPF 5 [facility] Lymphocytes (Bld) [#/Vol] 2.2 10*3/uL 1.0 - 4.3 10*3/uL [facility] Lymphocytes/100 WBC (Bld) 49.3 % High 15.0 - 45.0 % [facility] MCH (RBC) [Entitic mass] 30.4 pg 26.0 - 34.0 pg [facility] MCHC (RBC) [Mass/Vol] 33.9 % 30.5 - 36.0 % [facility] MCV (RBC) [Entitic vol] 89.8 fL 77.0 - 99.0 fL [facility] Monocytes (Bld) [#/Vol] 0.3 10*3/uL 0.0 - 0.9 10*3/uL [facility] Monocytes/100 WBC (Bld) 6.9 % 5.0 - 13.0 % [facility] Neutrophils (Bld) [#/Vol] 1.8 10*3/uL 1.8 - 7.5 10*3/uL [facility] Neutrophils/100 WBC (Bld) 40.0 % 38.0 - 82.0 % [facility] Nucleated RBC/100 WBC (Bld) [Ratio] 0.0 % [facility] Platelet mean volume (Bld) [Entitic vol] 10.4 fL 9.0 - 12.7 fL [facility] Platelets (Bld) [#/Vol] 136 10*3/uL Low 140 - 440 10*3/uL [facility] RBC (Bld) [#/Vol] 4.21 10*6/uL Low 4.40 - 5.9 0 10*6/uL [facility] WBC (Bld) [#/Vol] 4.5 10*3/uL 3.6 - 10.7 10*3/uL [facility] Comprehensive metabolic 1998 panelon 06-28-2023 Albumin [Mass/Vol] 3.7 g/dL 3.5 - 5.0 g/dL [facility] ALP [Catalytic activity/Vol] 102 U/L 38 - 126 U/L [facility] ALT [Catalytic activity/Vol] 178 U/L High 0 - 49 U/L [facility] Anion gap [Moles/Vol] 7 mmol/L 3 - 13 mmol/L [facility] AST [Catalytic activity/Vol] 186 U/L High 15 - 46 U/L [facility] Bilirubin [Mass/Vol] 0.7 mg/dL 0.2 - 1 .3 mg/dL [facility] Calcium [Mass/Vol] 8.7 mg/dL 8.4 - 10. 4 mg/dL [facility] Chloride [Moles/Vol] 107 mmol/L 98 - 10 7 mmol/L [facility] CO2 [Moles/Vol] 22 mmol/L 22 - 30 mmol/L [facility] Creatinine [Mass/Vol] 0.62 mg/dL Low 0.66 - 1.25 mg/dL [facility] GFR/1.73 sq M.predicted MDRD (S/P/Bld) [Vol rate/Area] - PINF [facility] Comment on above: Calculation based on the Chronic Kidney Disease Epidemiology Collaboration (CKD-EPI) equation refit without adjustment for race Glucose [Mass/Vol] 108 mg/dL High 70 - 100 mg/dL [facility] Interpretation and review of laboratory results Abnormal [facility] Potassium [Moles/Vol] 4.1 mmol/L 3.5 - 5.1 mmol/L [facility] Protein [Mass/Vol] 6.9 g/dL 6.3 - 8.2 g/dL [facility] Sodium [Moles/Vol] 135 mmol/L 135 - 145 mmol/L [facility] Urea nitrogen [Mass/Vol] 4 mg/dL Low 9 - 20 mg/dL [facility] CBC W Auto Differential pane l (Bld)on 06-27-2023 Basophils (Bld) [#/Vol] 0.0 10*3/uL 0.0 - 0.2 10*3/uL [facility] Basophils/100 WBC (Bld) 0.6 % 0.0 - 2.0 % [facility] Eosinophils (Bld) [#/Vol] 0.1 10*3/uL 0.0 - 0.5 10*3/uL [facility] Eosinophils/100 WBC (Bld) 1.2 % 0.0 - 6.0 % [facility] Erythrocyte distribution width (RBC) [Ratio] 14.6 % 11.5 - 15.0 % [facility] Hematocrit (Bld) [Volume fraction] 39.1 % Low 40.0 - 52.0 % [facility] Hemoglobin (Bld) [Mass/Vol] 13.0 g/dL 13.0 - 18.0 g/dL [facility] Immature granulocytes (Bld) [#/Vol] 0.0 10*3/uL NINF - 0.1 10*3/uL [facility] Immature granulocytes/100 WBC (Bld) 0.4 % 0.0 - 2.0 % [facility] Interpretation and review of laboratory results Abnormal [facility] IPF 5 [facility] Lymphocytes (Bld) [#/Vol] 2.3 10*3/uL 1.0 - 4.3 10*3/uL [facility] Lymphocytes/100 WBC (Bld) 48.2 % High 15.0 - 45.0 % [facility] MCH (RBC) [Entitic mass] 29.8 pg 26.0 - 34.0 pg [facility] MCHC (RBC) [Mass/Vol] 33.2 % 30.5 - 36.0 % [facility] MCV (RBC) [Entitic vol] 89.7 fL 77.0 - 99.0 fL [facility] Monocytes (Bld) [#/Vol] 0.3 10*3/uL 0.0 - 0.9 10*3/uL [facility] Monocytes/100 WBC (Bld) 7.0 % 5.0 - 13.0 % [facility] Neutrophils (Bld) [#/Vol] 2.1 10*3/uL 1.8 - 7.5 10*3/uL [facility] Neutrophils/100 WBC (Bld) 42.6 % 38.0 - 82.0 % [facility] Nucleated RBC/100 WBC (Bld) [Ratio] 0.0 % [facility] Platelet mean volume (Bld) [Entitic vol] 10.1 fL 9.0 - 12.7 fL [facility] Platelets (Bld) [#/Vol] 135 10*3/uL Low 140 - 440 10*3/uL [facility] RBC (Bld) [#/Vol] 4.36 10*6/uL Low 4.40 - 5.9 0 10*6/uL [facility] WBC (Bld) [#/Vol] 4.9 10*3/uL 3.6 - 10.7 10*3/uL [facility] Comprehensive metabolic 1998 panelon 06-27-2023 Albumin [Mass/Vol] 4.0 g/dL 3.5 - 5.0 g/dL [facility] ALP [Catalytic activity/Vol] 107 U/L 38 - 126 U/L [facility] ALT [Catalytic activity/Vol] 165 U/L High 0 - 49 U/L [facility] Anion gap [Moles/Vol] 8 mmol/L 3 - 13 mmol/L [facility] AST [Catalytic activity/Vol] 169 U/L High 15 - 46 U/L [facility] Bilirubin [Mass/Vol] 0.7 mg/dL 0.2 - 1 .3 mg/dL [facility] Calcium [Mass/Vol] 8.9 mg/dL 8.4 - 10. 4 mg/dL [facility] Chloride [Moles/Vol] 105 mmol/L 98 - 10 7 mmol/L [facility] CO2 [Moles/Vol] 22 mmol/L 22 - 30 mmol/L [facility] Creatinine [Mass/Vol] 0.72 mg/dL 0.66 - 1.25 mg/dL [facility] GFR/1.73 sq M.predicted MDRD (S/P/Bld) [Vol rate/Area] - PINF [facility] Comment on above: Calculation based on the Chronic Kidney Disease Epidemiology Collaboration (CKD-EPI) equation refit without adjustment for race Glucose [Mass/Vol] 97 mg/dL 70 - 100 mg/dL [facility] Interpretation and review of laboratory results Abnormal [facility] Potassium [Moles/Vol] 4.0 mmol/L 3.5 - 5.1 mmol/L [facility] Protein [Mass/Vol] 7.0 g/dL 6.3 - 8.2 g/dL [facility] Sodium [Moles/Vol] 135 mmol/L 135 - 145 mmol/L [facility] Urea nitrogen [Mass/Vol] 5 mg/dL Low 9 - 20 mg/dL [facility] CBC W Auto Differential pane l (Bld)on 06-26-2023 Basophils (Bld) [#/Vol] 0.0 10*3/uL 0.0 - 0.2 10*3/uL [facility] Basophils/100 WBC (Bld) 0.6 % 0.0 - 2.0 % [facility] Eosinophils (Bld) [#/Vol] 0.1 10*3/uL 0.0 - 0.5 10*3/uL [facility] Eosinophils/100 WBC (Bld) 1.3 % 0.0 - 6.0 % [facility] Erythrocyte distribution width (RBC) [Ratio] 14.7 % 11.5 - 15.0 % [facility] Hematocrit (Bld) [Volume fraction] 37.9 % Low 40.0 - 52.0 % [facility] Hemoglobin (Bld) [Mass/Vol] 12.7 g/dL Low 13.0 - 18.0 g/dL [facility] Immature granulocytes (Bld) [#/Vol] 0.0 10*3/uL NINF - 0.1 10*3/uL [facility] Immature granulocytes/100 WBC (Bld) 0.4 % 0.0 - 2.0 % [facility] Interpretation and review of laboratory results Abnormal [facility] Lymphocytes (Bld) [#/Vol] 2.5 10*3/uL 1.0 - 4.3 10*3/uL [facility] Lymphocytes/100 WBC (Bld) 52.5 % High 15.0 - 45.0 % [facility] MCH (RBC) [Entitic mass] 29.5 pg 26.0 - 34.0 pg [facility] MCHC (RBC) [Mass/Vol] 33.5 % 30.5 - 36.0 % [facility] MCV (RBC) [Entitic vol] 88.1 fL 77.0 - 99.0 fL [facility] Monocytes (Bld) [#/Vol] 0.3 10*3/uL 0.0 - 0.9 10*3/uL [facility] Monocytes/100 WBC (Bld) 6.3 % 5.0 - 13.0 % [facility] Neutrophils (Bld) [#/Vol] 1.9 10*3/uL 1.8 - 7.5 10*3/uL [facility] Neutrophils/100 WBC (Bld) 38.9 % 38.0 - 82.0 % [facility] Nucleated RBC/100 WBC (Bld) [Ratio] 0.0 % [facility] Platelet mean volume (Bld) [Entitic vol] 10.1 fL 9.0 - 12.7 fL [facility] Platelets (Bld) [#/Vol] 153 10*3/uL 140 - 440 10*3/uL [facility] RBC (Bld) [#/Vol] 4.30 10*6/uL Low 4.40 - 5.9 0 10*6/uL [facility] WBC (Bld) [#/Vol] 4.8 10*3/uL 3.6 - 10.7 10*3/uL [facility] Comprehensive metabolic 1998 panelon 06-26-2023 Albumin [Mass/Vol] 3.9 g/dL 3.5 - 5.0 g/dL [facility] ALP [Catalytic activity/Vol] 104 U/L 38 - 126 U/L [facility] ALT [Catalytic activity/Vol] 143 U/L High 0 - 49 U/L [facility] Anion gap [Moles/Vol] 9 mmol/L 3 - 13 mmol/L [facility] AST [Catalytic activity/Vol] 119 U/L High 15 - 46 U/L [facility] Bilirubin [Mass/Vol] 1.0 mg/dL 0.2 - 1 .3 mg/dL [facility] Calcium [Mass/Vol] 9.0 mg/dL 8.4 - 10. 4 mg/dL [facility] Chloride [Moles/Vol] 103 mmol/L 98 - 10 7 mmol/L [facility] CO2 [Moles/Vol] 22 mmol/L 22 - 30 mmol/L [facility] Creatinine [Mass/Vol] 0.67 mg/dL 0.66 - 1.25 mg/dL [facility] [facility] GFR/1.73 sq M.predicted MDRD (S/P/Bld) [Vol rate/Area] - PINF [facility] Comment on above: Calculation based on the Chronic Kidney Disease Epidemiology Collaboration (CKD-EPI) equation refit without adjustment for race Glucose [Mass/Vol] 108 mg/dL High 70 - 100 mg/dL [facility] Interpretation and review of laboratory results Abnormal [facility] Potassium [Moles/Vol] 3.7 mmol/L 3.5 - 5.1 mmol/L [facility] Protein [Mass/Vol] 7.1 g/dL 6.3 - 8.2 g/dL [facility] Sodium [Moles/Vol] 134 mmol/L Low 135 - 145 mmol/L [facility] Urea nitrogen [Mass/Vol] 7 mg/dL Low 9 - 20 mg/dL [facility] CBC W Auto Differential pane l (Bld)Ordered By: Megha Lopez on 06-25-2023 Basophils (Bld) [#/Vol] 0.0 10*3/uL 0.0 - 0.2 10*3/uL [facility] Basophils/100 WBC (Bld) 0.6 % 0.0 - 2.0 % [facility] Eosinophils (Bld) [#/Vol] 0.0 10*3/uL 0.0 - 0.5 10*3/uL [facility] Eosinophils/100 WBC (Bld) 0.6 % 0.0 - 6.0 % [facility] Erythrocyte distribution width (RBC) [Ratio] 14.9 % 11.5 - 15.0 % [facility] Hematocrit (Bld) [Volume fraction] 38.4 % Low 40.0 - 52.0 % [facility] Hemoglobin (Bld) [Mass/Vol] 12.6 g/dL Low 13.0 - 18.0 g/dL [facility] Immature granulocytes (Bld) [#/Vol] 0.0 10*3/uL NINF - 0.1 10*3/uL [facility] Immature granulocytes/100 WBC (Bld) 0.4 % 0.0 - 2.0 % [facility] Interpretation and review of laboratory results Abnormal [facility] Lymphocytes (Bld) [#/Vol] 2.3 10*3/uL 1.0 - 4.3 10*3/uL [facility] Lymphocytes/100 WBC (Bld) 46.7 % High 15.0 - 45.0 % [facility] MCH (RBC) [Entitic mass] 29.0 pg 26.0 - 34.0 pg [facility] MCHC (RBC) [Mass/Vol] 32.8 % 30.5 - 36.0 % [facility] MCV (RBC) [Entitic vol] 88.3 fL 77.0 - 99.0 fL [facility] Monocytes (Bld) [#/Vol] 0.4 10*3/uL 0.0 - 0.9 10*3/uL [facility] Monocytes/100 WBC (Bld) 7.8 % 5.0 - 13.0 % [facility] Neutrophils (Bld) [#/Vol] 2.2 10*3/uL 1.8 - 7.5 10*3/uL [facility] Neutrophils/100 WBC (Bld) 43.9 % 38.0 - 82.0 % [facility] Nucleated RBC/100 WBC (Bld) [Ratio] 0.0 % [facility] Platelet mean volume (Bld) [Entitic vol] 10.0 fL 9.0 - 12.7 fL [facility] Platelets (Bld) [#/Vol] 172 10*3/uL 140 - 440 10*3/uL [facility] RBC (Bld) [#/Vol] 4.35 10*6/uL Low 4.40 - 5.9 0 10*6/uL [facility] WBC (Bld) [#/Vol] 5.0 10*3/uL 3.6 - 10.7 10*3/uL [facility] CK [Catalytic activity/Vol]o n 06-25-2023 Interpretation and review of laboratory results Normal [facility] Cobalamin (Vitamin B12) [Mas s/Vol]on 06-25-2023 Interpretation and review of laboratory results Normal [facility] Comprehensive metabolic 1998 panelon 06-25-2023 Albumin [Mass/Vol] 4.0 g/dL 3.5 - 5.0 g/dL [facility] ALP [Catalytic activity/Vol] 97 U/L 38 - 126 U/L [facility] ALT [Catalytic activity/Vol] 179 U/L High 0 - 49 U/L [facility] Anion gap [Moles/Vol] 10 mmol/L 3 - 13 mmol/L [facility] AST [Catalytic activity/Vol] 145 U/L High 15 - 46 U/L [facility] Bilirubin [Mass/Vol] 0.8 mg/dL 0.2 - 1 .3 mg/dL [facility] Calcium [Mass/Vol] 8.1 mg/dL Low 8.4 - 10. 4 mg/dL [facility] Chloride [Moles/Vol] 109 mmol/L High 98 - 10 7 mmol/L [facility] CO2 [Moles/Vol] 19 mmol/L Low 22 - 30 mmol/L [facility] Creatinine [Mass/Vol] 0.69 mg/dL 0.66 - 1.25 mg/dL [facility] GFR/1.73 sq M.predicted MDRD (S/P/Bld) [Vol rate/Area] - PINF [facility] Comment on above: Calculation based on the Chronic Kidney Disease Epidemiology Collaboration (CKD-EPI) equation refit without adjustment for race Glucose [Mass/Vol] 101 mg/dL High 70 - 100 mg/dL [facility] Interpretation and review of laboratory results Abnormal [facility] Potassium [Moles/Vol] 4.4 mmol/L 3.5 - 5.1 mmol/L [facility] Protein [Mass/Vol] 7.2 g/dL 6.3 - 8.2 g/dL [facility] Sodium [Moles/Vol] 139 mmol/L 135 - 145 mmol/L [facility] Urea nitrogen [Mass/Vol] 6 mg/dL Low 9 - 20 mg/dL [facility] HCV Ab IA Qlon 06-25-2023 Interpretation and review of laboratory results Normal [facility] HIV 1+2 Ab+HIV1 p24 Ag IA Ql Ordered By: Vidhi Hopkins on 06-25-2023 Interpretation and review of laboratory results Normal [facility] Laboratory - Chemistry and C hemistry - challengeon 06-25-2023 Average glucose Estimated from glycated hemoglobin (Bld) [Mass/Vol] 117 mg/dL [facility] Cobalamin (Vitamin B12) [Mass/Vol] 517 pg/mL 239 - 931 pg/mL [facility] TSH Qn 1.435 m[IU]/L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 6.0 % [facility] Erythrocyte distribution width (RBC) [Ratio] 13.2 % 11.5 - 14.5 % [facility] Hematocrit (Bld) [Volume fraction] 42.1 % 40.0 - 52.0 % [facility] Hemoglobin (Bld) [Mass/Vol] 13.9 g/dL 13.0 - 18.0 g/dL [facility] Immature granulocytes (Bld) [#/Vol] 0.0 10*3/uL NINF - 0.0 10*3/uL [facility] Immature granulocytes/100 WBC (Bld) 0.2 % High NINF - 0.0 % [facility] Interpretation and review of laboratory results Abnormal [facility] Lymphocytes (Bld) [#/Vol] 4.1 10*3/uL 1.0 - 4.3 10*3/uL [facility] Lymphocytes/100 WBC (Bld) 50.2 % High 20.0 - 40.0 % [facility] MCH (RBC) [Entitic mass] 31.1 pg 26.0 - 34.0 pg [facility] MCHC (RBC) [Mass/Vol] 33.0 % 32.0 - 36.0 % [facility] MCV (RBC) [Entitic vol] 94.2 fL 80.0 - 98.0 fL [facility] Monocytes (Bld) [#/Vol] 0.5 10*3/uL 0.0 - 0.8 10*3/uL [facility] Monocytes/100 WBC (Bld) 6.2 % 2.0 - 10.0 % [facility] Neutrophils (Bld) [#/Vol] 3.4 10*3/uL 1.8 - 7.0 10*3/uL [facility] Neutrophils/100 WBC (Bld) 41.9 % 40.0 - 80.0 % [facility] Platelet mean volume (Bld) [Entitic vol] 9.6 fL 7.4 - 12.4 fL [facility] Comment on above: MPV is a calculated measurement using platelet volume ratio Platelets (Bld) [#/Vol] 296 10*3/uL 140 - 440 10*3/uL [facility] RBC (Bld) [#/Vol] 4.47 10*6/uL 4.40 - 5.9 0 10*6/uL [facility] WBC (Bld) [#/Vol] 8.2 10*3/uL 3.6 - 10.7 10*3/uL [facility] Comprehensive metabolic 1998 panelon 07-11-2022 Albumin [Mass/Vol] 4.7 g/dL 3.5 - 5.0 g/dL [facility] ALP [Catalytic activity/Vol] 70 U/L 38 - 126 U/L [facility] ALT [Catalytic activity/Vol] 172 U/L High 0 - 49 U/L [facility] Anion gap [Moles/Vol] 10 mmol/L 3 - 13 mmol/L [facility] AST [Catalytic activity/Vol] 144 U/L High 15 - 46 U/L [facility] Bilirubin [Mass/Vol] 0.3 mg/dL 0.2 - 1 .3 mg/dL [facility] Calcium [Mass/Vol] 8.9 mg/dL 8.4 - 10. 4 mg/dL [facility] Chloride [Moles/Vol] 109 mmol/L High 98 - 10 7 mmol/L [facility] CO2 [Moles/Vol] 23 mmol/L 22 - 30 mmol/L [facility] Creatinine [Mass/Vol] 0.69 mg/dL 0.66 - 1.25 mg/dL [facility] GFR/1.73 sq M.predicted MDRD (S/P/Bld) [Vol rate/Area] - PINF [facility] Comment on above: Calculation based on the Chronic Kidney Disease Epidemiology Collaboration (CKD-EPI) equation refit without adjustment for race Glucose [Mass/Vol] 107 mg/dL High 70 - 100 mg/dL [facility] Potassium [Moles/Vol] 3.9 mmol/L 3.5 - 5.1 mmol/L [facility] Protein [Mass/Vol] 8.1 g/dL 6.3 - 8.2 g/dL [facility] Sodium [Moles/Vol] 143 mmol/L 135 - 145 mmol/L [facility] Urea nitrogen [Mass/Vol] 6 mg/dL Low 9 - 20 mg/dL [facility] Ethanol (Bld) [Mass/Vol]on 0 07-11-2022 Ethanol [Mass/Vol] 0.352 g/dL Critically high 0.000 - 0.010 g/dL [facility] Interpretation and review of laboratory results Abnormal [facility] Laboratory - Chemistry and C hemistry - challengeon 07-11-2022 CK [Catalytic activity/Vol] 172 U/L High 30 - 170 U/L [facility] Laboratory - Drug toxicology on 07-11-2022 Salicylates [Mass/Vol] mg/dL 0.0 - 20.0 mg/dL [facility] Amphetamines Screen method >1000 ng/mL Ql (U) Negative [facility] Barbiturates Screen method >200 ng/mL Ql (U) Negative [facility] Benzodiazepines Ql (U) Negative [facility] Methadone Screen Ql (U) Negative [facility] Opiates Screen Ql (U) Negative [facility] oxyCODONE Ql (U) Negative [facility] Phencyclidine Ql (U) Negative [facility] Laboratory - Microbiology an d Antimicrobial susceptibilityon 07-11-2022 FLUAV RNA PREETHI+probe Ql (Resp) Not detected Not Detected [facility] FLUBV RNA PREETHI+probe Ql (Resp) Not detected Not Detected [facility] RSV RNA PREETHI+probe Ql (Resp) Not detected Not Detected [facility] SARS-CoV-2 (COVID-19) RNA PREETHI+probe Ql (Resp) Not detected Not Detected [facility] SARS-CoV-2 (COVID-19) RNA PREETHI+probe Ql (Unsp spec) Methodology: real-time, RT-PCR The SARS-CoV-2, Flu A/B, and RSV Combo assay is intended for in vitro diagnostic use under the FDA Emergency Use Authorization (EUA). This test has not been FDA cleared or approved. In compliance with this authorization, please visit www.fda.gov/media/71850 5/download or www.fda.gov/media/39523 6/download to access the applicable information sheets. [facility] No Panel InformationOrdered By: Nadine Rosas on 07-11-2022 P Lyman 50 degrees [employer] Work Phone: NE Interval 164 ms [employer] Phone: QRS Lyman 9 degrees [employer] Phone: QRSD Interval 93 ms [employer] Phone: QT Interval 368 ms [employer] Phone: QTC Interval 463 ms [employer] Phone: T Wave Lyman 35 degrees [employer] Phone: [employer] Phone: No Panel Informationon 07-11 Sinus rhythm Left ventricular hypertrophy Electronically Signed On 07-11-2022 10:40:02 EDT by Nadine Rosas CV Nadine Bolaños D O - 07/11/2022 IMPRESSION: Sinus rhythm Left ventricular hypertrophy Electronically Signed On 07-11-2022 10:40:02 EDT by Nadine Rosas [facility] Interpretation and review of laboratory results Abnormal [employer] COCAINE METAB. SCREEN Negative [facility] The expected value f or all of [...] is needed, request confirmation under separate order. [facility] SARS-CoV-2, Flu A/B, and RSV Comboon 07-11-2022 Interpretation and review of laboratory results Normal [facility] Salicylates [Mass/Vol]on Interpretation and review of laboratory results Normal [facility] Urinalysis complete panel (U )on 07-11-2022 Bilirubin Ql (U) Negative Negative mg/dL [facility] Clarity (U) Clear Clear [facility] Color (U) Colorless Lt. Yellow [facility] Glucose Ql (U) Normal Normal (<70) mg/dL [facility] Hemoglobin Ql (U) Negative Negative mg/dL [facility] Interpretation and review of laboratory results Abnormal [facility] Ketones (U) [Mass/Vol] Negative Negat chan mg/dL [facility] Leukocyte esterase Test strip Ql (U) Negative Negative Teofilo/uL [facility] Nitrite Ql (U) Negative Negative [facility] pH (U) 5.5 [pH] 5.0 - 8.0 pH [facility] Protein (U) [Mass/Vol] Negative Negat chan mg/dL [facility] Specific gravity (U) [Rel density] 1.002 Low 1.005 - 1.030 [facility] Urobilinogen (U) [Mass/Vol] Normal Normal (0-1) mg/dL [facility] Vital signsOrdered By: Jesse Rosas on 07-11-2022 Heart rate 95 /min bpm [facility] Work Phone: CKon 05-25-2022 CK [Catalytic activity/Vol] 105 U/L 30 - 170 U/L [facility] CK [Catalytic activity/Vol]o n 05-25-2022 Interpretation and review of laboratory results Normal [facility] Comprehensive metabolic 1998 panelon 05-25-2022 Albumin [Mass/Vol] 4.7 g/dL 3.5 - 5.0 g/dL [facility] ALP [Catalytic activity/Vol] 106 U/L 38 - 126 U/L [facility] ALT [Catalytic activity/Vol] 309 U/L High 0 - 49 U/L [facility] Anion gap [Moles/Vol] 8 mmol/L 3 - 13 mmol/L [facility] AST [Catalytic activity/Vol] 418 U/L High 15 - 46 U/L [facility] Bilirubin [Mass/Vol] 1.0 mg/dL 0.2 - 1 .3 mg/dL [facility] Calcium [Mass/Vol] 10.2 mg/dL 8.4 - 10. 4 mg/dL [facility] Chloride [Moles/Vol] 104 mmol/L 98 - 10 7 mmol/L [facility] CO2 [Moles/Vol] 25 mmol/L 22 - 30 mmol/L [facility] Creatinine [Mass/Vol] 0.61 mg/dL Low 0.66 - 1.25 mg/dL [facility] GFR/1.73 sq M.predicted MDRD (S/P/Bld) [Vol rate/Area] - PINF [facility] Comment on above: Calculation based on the Chronic Kidney Disease Epidemiology Collaboration (CKD-EPI) equation refit without adjustment for race Glucose [Mass/Vol] 103 mg/dL High 70 - 100 mg/dL [facility] Interpretation and review of laboratory results Abnormal [facility] Potassium [Moles/Vol] 4.3 mmol/L 3.5 - 5.1 mmol/L [facility] Protein [Mass/Vol] 8.0 g/dL 6.3 - 8.2 g/dL [facility] Sodium [Moles/Vol] 137 mmol/L 135 - 145 mmol/L [facility] Urea nitrogen [Mass/Vol] 7 mg/dL Low 9 - 20 mg/dL [facility] No Panel Informationon 05-25 [facility] CK [Catalytic activity/Vol]o n 05-24-2022 Interpretation and review of laboratory results Abnormal [facility] Laboratory - Chemistry and C hemistry - challengeon 05-24-2022 CK [Catalytic activity/Vol] 559 U/L High 30 - 170 U/L [facility] Laboratory - Drug toxicology Ordered By: Nevaeh Erickson on 05-24-2022 Amphetamines Screen method >1000 ng/mL Ql (U) Positive [facility] Barbiturates Screen method >200 ng/mL Ql (U) Negative [facility] Benzodiazepines Ql (U) Positive [facility] Methadone Screen Ql (U) Negative [facility] Opiates Screen Ql (U) Negative [facility] oxyCODONE Ql (U) Negative [facility] Phencyclidine Ql (U) Negative [facility] Laboratory - Microbiology an d Antimicrobial susceptibilityOrdered By: Dada Rich on 05-24-2022 SARS-CoV-2 (COVID-19) Ag IA.rapid Ql (Resp) Negative Negative [facility] Comment on above: A negative result do es not rule out the possibility of SARS-CoV-2 infection. NAAT-based methods should be considered for symptomatic patients presenting greater than seven days after onset of symptoms. Method: Lateral flow immunoassay. Fact sheets for healthcare providers and patients can be found at the following sites: https://www.Jackrabbit.gov/media/828243/download https://www.Jack[employer].gov/media/866861/download No Panel InformationOrdered By: Nevaeh Erickson on 05-24-2022 COCAINE METAB. SCREEN Negative [facility] The expected value f or all [...] is needed, request confirmation under separate order. [facility] SARS-CoV-2 (COVID-19) Ag IA. rapid Ql (Resp)Ordered By: Dada Rich on 05-24-2022 Interpretation and review of laboratory results Normal [facility] Urinalysis complete panel (U )on 05-24-2022 Bilirubin Ql (U) Negative Negative mg/dL [facility] Clarity (U) Clear Clear [facility] Color (U) Yellow Lt. Yellow [facility] Glucose Ql (U) Normal Normal (<70) mg/dL [facility] Hemoglobin Ql (U) Negative Negative mg/dL [facility] Interpretation and review of laboratory results Normal [facility] Ketones (U) [Mass/Vol] Negative Negat chan mg/dL [facility] Leukocyte esterase Test strip Ql (U) Negative Negative Teofilo/uL [facility] Nitrite Ql (U) Negative Negative [facility] pH (U) 5.5 [pH] 5.0 - 8.0 pH [facility] Protein (U) [Mass/Vol] Negative Negat chan mg/dL [facility] Specific gravity (U) [Rel density] 1.012 1.005 - 1.030 [facility] Urobilinogen (U) [Mass/Vol] Normal Normal (0-1) mg/dL [facility] CBC W Auto Differential pane l (Bld)Ordered By: Brandy Morelos on 05-23-2022 Basophils (Bld) [#/Vol] 0.1 10*3/uL 0.0 - 0.2 10*3/uL [facility] Basophils/100 WBC (Bld) 1.5 % 0.0 - 2.0 % [facility] Eosinophils (Bld) [#/Vol] 0.1 10*3/uL 0.0 - 0.5 10*3/uL [facility] Eosinophils/100 WBC (Bld) 1.7 % 1.0 - 6.0 % [facility] Erythrocyte distribution width (RBC) [Ratio] 13.9 % 11.5 - 14.5 % [facility] Hematocrit (Bld) [Volume fraction] 43.2 % 40.0 - 52.0 % [facility] Hemoglobin (Bld) [Mass/Vol] 14.7 g/dL 13.0 - 18.0 g/dL [facility] Interpretation and review of laboratory results Abnormal [facility] Lymphocytes (Bld) [#/Vol] 2.3 10*3/uL 1.0 - 4.3 10*3/uL [facility] Lymphocytes/100 WBC (Bld) 52.3 % High 20.0 - 40.0 % [facility] MCH (RBC) [Entitic mass] 31.5 pg 26.0 - 34.0 pg [facility] MCHC (RBC) [Mass/Vol] 33.9 % 32.0 - 36.0 % [facility] MCV (RBC) [Entitic vol] 93.0 fL 80.0 - 98.0 fL [facility] Monocytes (Bld) [#/Vol] 0.4 10*3/uL 0.0 - 0.8 10*3/uL [facility] Monocytes/100 WBC (Bld) 10.3 % High 2.0 - 10.0 % [facility] Neutrophils (Bld) [#/Vol] 1.5 10*3/uL Low 1.8 - 7.0 10*3/uL [facility] Neutrophils/100 WBC (Bld) 34.2 % Low 40.0 - 80.0 % [facility] Nucleated RBC/100 WBC (Bld) [Ratio] 0.0 % [facility] Platelet mean volume (Bld) [Entitic vol] 8.2 fL 7.4 - 12.4 fL [facility] Platelets (Bld) [#/Vol] 270 10*3/uL 140 - 440 10*3/uL [facility] RBC (Bld) [#/Vol] 4.65 10*6/uL 4.40 - 5.9 0 10*6/uL [facility] WBC (Bld) [#/Vol] 4.4 10*3/uL 3.6 - 10.7 10*3/uL [facility] Comprehensive metabolic 1998 panelon 05-23-2022 Albumin [Mass/Vol] 4.6 g/dL 3.5 - 5.0 g/dL [facility] ALP [Catalytic activity/Vol] 98 U/L 38 - 126 U/L [facility] ALT [Catalytic activity/Vol] 311 U/L High 0 - 49 U/L [facility] Anion gap [Moles/Vol] 13 mmol/L 3 - 13 mmol/L [facility] AST [Catalytic activity/Vol] 379 U/L High 15 - 46 U/L [facility] Bilirubin [Mass/Vol] 0.6 mg/dL 0.2 - 1 .3 mg/dL [facility] Calcium [Mass/Vol] 8.9 mg/dL 8.4 - 10. 4 mg/dL [facility] Chloride [Moles/Vol] 107 mmol/L 98 - 10 7 mmol/L [facility] CO2 [Moles/Vol] 23 mmol/L 22 - 30 mmol/L [facility] Creatinine [Mass/Vol] 0.72 mg/dL 0.66 - 1.25 mg/dL [facility] GFR/1.73 sq M.predicted MDRD (S/P/Bld) [Vol rate/Area] - PINF [facility] Comment on above: Calculation based on the Chronic Kidney Disease Epidemiology Collaboration (CKD-EPI) equation refit without adjustment for race Glucose [Mass/Vol] 90 mg/dL 70 - 100 mg/dL [facility] Potassium [Moles/Vol] 4.1 mmol/L 3.5 - 5.1 mmol/L [facility] Protein [Mass/Vol] 7.8 g/dL 6.3 - 8.2 g/dL [facility] Sodium [Moles/Vol] 143 mmol/L 135 - 145 mmol/L [facility] Urea nitrogen [Mass/Vol] 8 mg/dL Low 9 - 20 mg/dL [facility] Ethanol (Bld) [Mass/Vol]on 0 05-23-2022 Ethanol [Mass/Vol] 0.141 g/dL High 0.000 - 0.010 g/dL [facility] Laboratory - Drug toxicology on 05-23-2022 Acetaminophen [Mass/Vol] ug/mL Low 10.0 - 30.0 ug/mL [facility] No Panel Informationon 05-23 Interpretation and review of laboratory results Abnormal [facility] Basic metabolic 1998 panelon 05-02-2022 Anion gap [Moles/Vol] 9 mmol/L 3 - 13 mmol/L [facility] Calcium [Mass/Vol] 9.4 mg/dL 8.4 - 10. 4 mg/dL [facility] Chloride [Moles/Vol] 107 mmol/L 98 - 10 7 mmol/L [facility] CO2 [Moles/Vol] 24 mmol/L 22 - 30 mmol/L [facility] Creatinine [Mass/Vol] 0.75 mg/dL 0.66 - 1.25 mg/dL [facility] GFR/1.73 sq M.predicted MDRD (S/P/Bld) [Vol rate/Area] - PINF [facility] Comment on above: Calculation based on the Chronic Kidney Disease Epidemiology Collaboration (CKD-EPI) equation refit without adjustment for race Glucose [Mass/Vol] 107 mg/dL High 70 - 100 mg/dL [facility] Interpretation and review of laboratory results Abnormal [facility] Potassium [Moles/Vol] 4.0 mmol/L 3.5 - 5.1 mmol/L [facility] Sodium [Moles/Vol] 140 mmol/L 135 - 145 mmol/L [facility] Urea nitrogen [Mass/Vol] 5 mg/dL Low 9 - 20 mg/dL [facility] CBC panel Auto (Bld)on 05-02 Erythrocyte distribution width (RBC) [Ratio] 13.2 % 11.5 - 14.5 % [facility] Hematocrit (Bld) [Volume fraction] 44.0 % 40.0 - 52.0 % [facility] Hemoglobin (Bld) [Mass/Vol] 14.7 g/dL 13.0 - 18.0 g/dL [facility] Interpretation and review of laboratory results Normal [facility] MCH (RBC) [Entitic mass] 31.0 pg 26.0 - 34.0 pg [facility] MCHC (RBC) [Mass/Vol] 33.4 % 32.0 - 36.0 % [facility] MCV (RBC) [Entitic vol] 92.9 fL 80.0 - 98.0 fL [facility] Platelet mean volume (Bld) [Entitic vol] 8.2 fL 7.4 - 12.4 fL [facility] Platelets (Bld) [#/Vol] 194 10*3/uL 140 - 440 10*3/uL [facility] RBC (Bld) [#/Vol] 4.73 10*6/uL 4.40 - 5.9 0 10*6/uL [facility] WBC (Bld) [#/Vol] 4.6 10*3/uL 3.6 - 10.7 10*3/uL [facility] ECG 12 leadOrdered By: Richard Ortiz on 05-02-2022 Heart rate 85 /min bpm [facility] Work Phone: P Lyman 61 degrees [facility] Work Phone: NE Interval 168 ms [facility] Work Phone: QRS Lyman 15 degrees [facility] Work Phone: QRSD Interval 90 ms [facility] Work Phone: QT Interval 392 ms [facility] Work Phone: QTC Interval 467 ms [facility] Work Phone: T Wave Lyman 38 degrees [facility] Work Phone: [facility] Work Phone: ECG 12 leadon 05-02-2022 SINUS [...] On 05-02-2022 19:41:54 EDT by Shaan Ortiz [facility] TSHon 05-02-2022 TSH Qn 1.706 m[IU]/L [facility] TSH Qnon 05-02-2022 Interpretation and review of laboratory results Normal [facility] Troponin Ion 05-02-2022 Troponin I.cardiac [Mass/Vol] ng/mL 0.000 - 0.034 ng/mL [facility] Troponin I.cardiac [Mass/Vol ]on 05-02-2022 Interpretation and review of laboratory results Normal [facility] Patients with high levels of Biotin oral intake (ie >5 mg/day) may have falsely decreased Troponin levels. [facility] XR Chest 2 Viewson 3 1. No acute finding. Report Dictated on Electronically Signed By: Steve Medellin Electronically Signed Date/Time: 05/02/2022 6:58 PM EDT [facility] 1985 [id number] Exam Date/Time: 05/02/2022 18:56 Procedure: XR CHEST 2 VIEWS Ordering Provider: DURAN DANIEL Reason For Exam: CHEST PAIN CHEST X-RAY TWO VIEWS CLINICAL INDICATION: CHEST PAIN TECHNIQUE: Frontal and lateral views of the chest. COMPARISON: None FINDINGS: Lungs are show no significant consolidation. No pleural effusion or pneumothorax. No vascular congestion. Heart size normal. [facility] Steve Medellin MD - 05/02/2022 Patient Name: [facility]DIVIA : 1985 [id number] Exam Date/Time: 05/02/2022 18:56 Procedure: XR CHEST [...] Electronically Signed Date/Time: 05/02/2022 6:58 PM EDT [facility] Radiology Study observation (narrative) [facility] XR Chest 2 ViewsOrdered By: Steve Medellin on 05-02-2022 [facility] Work Phone: Comprehensive metabolic 1998 panelon 03-18-2022 Albumin [Mass/Vol] 4.0 g/dL 3.5 - 5.0 g/dL [facility] ALP [Catalytic activity/Vol] 74 U/L 38 - 126 U/L [facility] ALT [Catalytic activity/Vol] 135 U/L High 0 - 49 U/L [facility] Anion gap [Moles/Vol] 4 mmol/L 3 - 13 mmol/L [facility] AST [Catalytic activity/Vol] 195 U/L High 15 - 46 U/L [facility] Bilirubin [Mass/Vol] 0.9 mg/dL 0.2 - 1 .3 mg/dL [facility] Calcium [Mass/Vol] 9.1 mg/dL 8.4 - 10. 4 mg/dL [facility] Chloride [Moles/Vol] 102 mmol/L 98 - 10 7 mmol/L [facility] CO2 [Moles/Vol] 30 mmol/L 22 - 30 mmol/L [facility] Creatinine [Mass/Vol] 0.73 mg/dL 0.66 - 1.25 mg/dL [facility] GFR/1.73 sq M.predicted MDRD (S/P/Bld) [Vol rate/Area] - PINF [facility] Comment on above: Calculation based on the Chronic Kidney Disease Epidemiology Collaboration (CKD-EPI) equation refit without adjustment for race Glucose [Mass/Vol] 102 mg/dL High 70 - 100 mg/dL [facility] Interpretation and review of laboratory results Abnormal [facility] Potassium [Moles/Vol] 4.0 mmol/L 3.5 - 5.1 mmol/L [facility] Protein [Mass/Vol] 6.9 g/dL 6.3 - 8.2 g/dL [facility] Sodium [Moles/Vol] 136 mmol/L 135 - 145 mmol/L [facility] Urea nitrogen [Mass/Vol] 4 mg/dL Low 9 - 20 mg/dL [facility] CBC W Auto Differential pane l (Bld)Ordered By: Maryana Hale on 03-15-2022 Basophils (Bld) [#/Vol] 0.0 10*3/uL 0.0 - 0.2 10*3/uL [facility] Basophils/100 WBC (Bld) 0.6 % 0.0 - 2.0 % [facility] Eosinophils (Bld) [#/Vol] 0.0 10*3/uL 0.0 - 0.5 10*3/uL [facility] Eosinophils/100 WBC (Bld) 0.6 % Low 1.0 - 6.0 % [facility] Erythrocyte distribution width (RBC) [Ratio] 13.8 % 11.5 - 14.5 % [facility] Hematocrit (Bld) [Volume fraction] 41.7 % 40.0 - 52.0 % [facility] Hemoglobin (Bld) [Mass/Vol] 14.0 g/dL 13.0 - 18.0 g/dL [facility] Interpretation and review of laboratory results Abnormal [facility] Lymphocytes (Bld) [#/Vol] 3.6 10*3/uL 1.0 - 4.3 10*3/uL [facility] Lymphocytes/100 WBC (Bld) 59.5 % High 20.0 - 40.0 % [facility] MCH (RBC) [Entitic mass] 31.4 pg 26.0 - 34.0 pg [facility] MCHC (RBC) [Mass/Vol] 33.6 % 32.0 - 36.0 % [facility] MCV (RBC) [Entitic vol] 93.7 fL 80.0 - 98.0 fL [facility] Monocytes (Bld) [#/Vol] 0.4 10*3/uL 0.0 - 0.8 10*3/uL [facility] Monocytes/100 WBC (Bld) 6.7 % 2.0 - 10.0 % [facility] Neutrophils (Bld) [#/Vol] 1.9 10*3/uL 1.8 - 7.0 10*3/uL [facility] Neutrophils/100 WBC (Bld) 32.6 % Low 40.0 - 80.0 % [facility] Nucleated RBC/100 WBC (Bld) [Ratio] 0.1 % [facility] Platelet mean volume (Bld) [Entitic vol] 8.4 fL 7.4 - 12.4 fL [facility] Platelets (Bld) [#/Vol] 189 10*3/uL 140 - 440 10*3/uL [facility] RBC (Bld) [#/Vol] 4.45 10*6/uL 4.40 - 5.9 0 10*6/uL [facility] WBC (Bld) [#/Vol] 6.0 10*3/uL 3.6 - 10.7 10*3/uL [facility] Comprehensive metabolic 1998 panelon 03-15-2022 Albumin [Mass/Vol] 4.9 g/dL 3.5 - 5.0 g/dL [facility] ALP [Catalytic activity/Vol] 117 U/L 38 - 126 U/L [facility] ALT [Catalytic activity/Vol] 167 U/L High 0 - 49 U/L [facility] Anion gap [Moles/Vol] 11 mmol/L 3 - 13 mmol/L [facility] AST [Catalytic activity/Vol] 234 U/L High 15 - 46 U/L [facility] Bilirubin [Mass/Vol] 0.5 mg/dL 0.2 - 1 .3 mg/dL [facility] Calcium [Mass/Vol] 8.9 mg/dL 8.4 - 10. 4 mg/dL [facility] Chloride [Moles/Vol] 105 mmol/L 98 - 10 7 mmol/L [facility] CO2 [Moles/Vol] 24 mmol/L 22 - 30 mmol/L [facility] Creatinine [Mass/Vol] 0.74 mg/dL 0.66 - 1.25 mg/dL [facility] GFR/1.73 sq M.predicted MDRD (S/P/Bld) [Vol rate/Area] - PINF [facility] Comment on above: Calculation based on the Chronic Kidney Disease Epidemiology Collaboration (CKD-EPI) equation refit without adjustment for race Glucose [Mass/Vol] 112 mg/dL High 70 - 100 mg/dL [facility] Potassium [Moles/Vol] 4.1 mmol/L 3.5 - 5.1 mmol/L [facility] Protein [Mass/Vol] 8.3 g/dL High 6.3 - 8.2 g/dL [facility] Sodium [Moles/Vol] 140 mmol/L 135 - 145 mmol/L [facility] Urea nitrogen [Mass/Vol] 5 mg/dL Low 9 - 20 mg/dL [facility] Ethanol (Bld) [Mass/Vol]on 0 03-15-2022 Ethanol [Mass/Vol] 0.289 g/dL High 0.000 - 0.010 g/dL [facility] Laboratory - Chemistry and C hemistry - challengeon 03-15-2022 Lipase [Catalytic activity/Vol] 324 U/L High 23 - 300 U/L [facility] Laboratory - Drug toxicology Ordered By: Amber Junior on 03-15-2022 Amphetamines Screen method >1000 ng/mL Ql (U) Negative [facility] Barbiturates Screen method >200 ng/mL Ql (U) Negative [facility] Benzodiazepines Ql (U) Negative [facility] Methadone Screen Ql (U) Negative [facility] Opiates Screen Ql (U) Negative [facility] oxyCODONE Ql (U) Negative [facility] Phencyclidine Ql (U) Negative [facility] Laboratory - Microbiology an d Antimicrobial susceptibilityOrdered By: Marilynn Flaherty on 03-15-2022 SARS-CoV-2 (COVID-19) Ag IA.rapid Ql (Resp) Negative Negative [facility] Comment on above: A negative result do es not rule out the possibility of SARS-CoV-2 infection. NAAT-based methods should be considered for symptomatic patients presenting greater than seven days after onset of symptoms. Method: Lateral flow immunoassay. Fact sheets for healthcare providers and patients can be found at the following sites: https://www.fda.gov/media/703691/download https://www.fda.gov/media/003251/download No Panel Informationon 03-15 P Lyman 41 degrees [facility] NE Interval 176 ms [facility] QRS Lyman 5 degrees [facility] QRSD Interval 93 ms [facility] QT Interval 427 ms [facility] QTC Interval 428 ms [facility] T Wave Lyman 2 degrees [facility] Sinus rhythm Probable left ventricular hypertrophy Borderline T abnormalities, inferior leads No significant changes compared to previous Electronically Signed On 03-15-2022 22:26:15 EST by Josseline Weber Josseline Davenport MD - 03/15/2022 IMPRESSION: Sinus rhythm Probable left ventricular hypertrophy Borderline T abnormalities, inferior leads No significant changes compared to previous Electronically Signed On 03-15-2022 22:26:15 EST by Josseline Weber [facility] Interpretation and review of laboratory results Abnormal [facility] No Panel InformationOrdered By: Amber Junior on 03-15-2022 COCAINE METAB. SCREEN Positive [facility] The expected value f or all [...] is needed, request confirmation under separate order. [facility] SARS-CoV-2 (COVID-19) Ag IA. rapid Ql (Resp)Ordered By: Marilynn Flaherty on 03-15-2022 Interpretation and review of laboratory results Normal [facility] Vital signson 03-15-2022 Heart rate 60 /min bpm [facility] ED Provider Noteon ED Provider Note [...] Hypertension ? Pancreatitis ? SVT (supraventricular tachycardia) ([facility]) ? Tourette syndrome SURGICALHISTORY Past Surgical History: [...] Gatherings with Friends and Family: ? Attends [employer] Services: ? Active Member of Clubs or Organizations: ? Attends Club or Organization Meetings: ? Marital Status: Intimate Partner Violence: ? Fear of Current or Ex-Partner: ? Emotionally Abused: ? Physically Abused: ? Sexually Abused: SCREENINGS @FLOW([id number])@ PHYSICAL EXAM (5+ for level 4, 8+ [...] heart sounds. (more content not included)... Normal [facility] XR CHEST 2V FRONTAL/LATon XR CHEST 2V [...] acute abnormality IMPRESSION: No acute radiographic abnormality. Electrical Engineering Manager: MORA Transcribe Date/Time: Jan 28 2020 8:55A Dictated by : SHIMA RAMOS MD This examination was interpreted and the report reviewed and electronically signed by: SHIMA RAMOS MD on Jan 28 2020 8:56AM EST Normal [facility] Chlamydia and GC PCR Panelon 07-29-2019 Chlamydia [...] as suspected child abuse or molestation. Normal [facility] Comment on above: Order Comment: Speci men Source Comment:Urine voided Performed By: #### C TNGP #### [address] [id number] Complete Urinalysison 2019 Appearance (U) Clear Normal Clear [facility] Comment on above: Result Comment: . Performed By: #### C UA2 #### [facility] [address] [place] [address] Bilirubin,Urine Negative Normal Negative [facility] Comment on above: Result Comment: . Performed By: #### C UA2 #### [facility] [address] [place] [address] Color (U) Yellow Normal Lt. Yellow [facility] Comment on above: Result Comment: . Performed By: #### C UA2 #### [facility] [address] [place] [address] Glucose Ql (U) Normal Normal Normal (<70) [facility] Comment on above: Result Comment: . Performed By: #### C UA2 #### [facility] [address] [place] [address] Ketone,Urine Trace Abnormal Negative [facility] Comment on above: Result Comment: . Performed By: #### C UA2 #### [facility] [address] [place] [address] Leukocytes,Urine Negative Normal Negative [facility] Comment on above: Result Comment: . Performed By: #### C UA2 #### [facility] [address] [place] [address] Mucous Threads Moderate Abnormal Negative [facility] Comment on above: Result Comment: . Performed By: #### C UA2 #### [facility] [address] [place] [address] Nitrites,Urine Negative Normal Negative [facility] Comment on above: Result Comment: . Performed By: #### C UA2 #### [facility] [address] [place] [address] Occult Blood,Urine Negative Normal Negative [facility] Comment on above: Result Comment: . Performed By: #### C UA2 #### [facility] [address] [place] [address] pH,Urine 6.0 Normal 5.0-8.0 [facility] Comment on above: Result Comment: . Performed By: #### C UA2 #### [facility] [address] [place] [address] Protein (U) [Mass/Vol] 10 mg/dL Abnormal Negative [facility] Comment on above: Result Comment: . Performed By: #### C UA2 #### [facility] [address] [place] [address] RBC, Urine 3 - 5 Abnormal 0-2 [facility] Comment on above: Result Comment: . Performed By: #### C UA2 #### [facility] [address] [place] [address] Specific [place],Urine 1.030 Normal 1.005 - 1.030 [facility] Comment on above: Result Comment: . Performed By: #### C UA2 #### [facility] [address] [place] [address] Urobilinogen,Urine 3 mg/dL Abnormal Normal (0-1) [facility] Comment on above: Result Comment: . Performed By: #### C UA2 #### [facility] [address] [place] [address] WBC, Urine 3 - 5 Normal 0-5 [facility] Comment on above: Result Comment: . Performed By: #### C UA2 #### [facility] [address] [place] [address] Urinalysison 07-28-2019 Appearance (U) Clear [place], [place] Comment on above: . Bilirubin Urine Negative Negative mg/dL [place], [place] Comment on above: . Color (U) Yellow Lt. Yellow NA [place], [place] Comment on above: . Glucose, Ur Normal Normal (<70) mg/dL [place] Comment on above: . Interpretation and review of laboratory results Abnormal [place] Ketones Ql (U) Trace Abnormal Negative mg/dL [place] Comment on above: . LEUKOCYTES, UA Negative Negative Teofilo/uL [place] Comment on above: . Mucous Threads Moderate Abnormal Negative /[LPF] [place] Comment on above: . Nitrite, Urine Negative Negative [place] Comment on above: . Occult Blood,Urine Negative Negative mg/dL [place] Comment on above: . pH (U) 6.0 [pH] [place] Comment on above: . Protein (U) [Mass/Vol] 10 mg/dL Abnormal Negative [place] Comment on above: . RBC (U) [#/Vol] 3-5 Abnormal 0 - 2 /[HPF] [place] Comment on above: . Specific [place], Urine 1.030 [place], [place] Comment on above: . Urobilinogen, Urine 3 mg/dL Abnormal Normal (0-1) [place], [place] Comment on above: . WBC, UA 3-5 0 - 5 /[HPF] [place] Comment on above: . Test Performed by [facility], [address] [place], [place], [place] [address] [place] Lipaseon 06-08-2018 Lipase [Catalytic activity/Vol] 65 U/L High 13-60 [facility] CBC With Platelet No Differe ntialon 06-07-2018 Erythrocyte distribution width (RBC) [Ratio] 13.0 fL Normal 11.5-15.0 [facility] Hematocrit (Bld) [Volume fraction] 39.4 % Normal 37.0-54.0 [facility] Hemoglobin (Bld) [Mass/Vol] 12.5 g/dL Normal 12.5-16.5 [facility] MCH (RBC) [Entitic mass] 29.6 pg Normal 26.0-35.0 [facility] MCHC (RBC) [Mass/Vol] 31.7 % Low 32.0-34.5 [facility] MCV (RBC) [Entitic vol] 93.4 fL Normal 80.0-99.9 [facility] Platelet mean volume (Bld) [Entitic vol] 9.8 fL Normal 7.0-12.0 [facility] Platelets (Bld) [#/Vol] 207 E9/L Normal 130-450 [facility] RBC (Bld) [#/Vol] 4.22 E12/L Normal 3.80-5.80 [facility] WBC (Bld) [#/Vol] 5.8 E9/L Normal 4.5-11.5 [facility] Comprehensive Metabolic Pane l reflex Mgon 06-07-2018 Albumin [Mass/Vol] 3.8 g/dL Normal 3.5-5.2 [facility] ALP [Catalytic activity/Vol] 65 U/L Normal 40-129 [facility] ALT [Catalytic activity/Vol] 63 U/L High 0-40 [facility] Anion gap [Moles/Vol] 11 mmol/L Normal 7-16 [facility] AST [Catalytic activity/Vol] 46 U/L High 0-39 [facility] Bilirubin [Mass/Vol] 0.5 mg/dL Normal 0.0-1.2 [facility] Calcium [Mass/Vol] 8.8 mg/dL Normal 8.6-10.2 [facility] Chloride [Moles/Vol] 103 mmol/L Normal 98-107 [facility] CO2 [Moles/Vol] 26 mmol/L Normal 22-29 [facility] Creatinine [Mass/Vol] 0.9 mg/dL Normal 0.7-1.2 [facility] GFR/1.73 sq M predicted among blacks MDRD (S/P/Bld) [Vol rate/Area] mL/min/{1.73_m2} Normal [facility] GFR/1.73 sq M predicted among non-blacks MDRD (S/P/Bld) [Vol rate/Area] mL/min/{1.73_m2} Normal >=60 [facility] Comment on above: Result Comment: Grey Inspector russ Kidney Disease: less than 60 ml/min/1.73 sq.m. Kidney Failure: less than 15 ml/min/1.73 sq.m. Results valid for patients 18 years and older. Glucose [Mass/Vol] 100 mg/dL High 74-99 [facility] Potassium reflex Mg 4.3 mmol/L Normal 3.5-5.0 [facility] Protein [Mass/Vol] 6.3 g/dL Low 6.4-8.3 [facility] Sodium [Moles/Vol] 140 mmol/L Normal 132-146 [facility] Urea nitrogen [Mass/Vol] 10 mg/dL Normal 6-20 [facility] Lipaseon 06-07-2018 Lipase [Catalytic activity/Vol] 158 U/L High 13-60 [facility] Lipid Panelon 04-29-2019 Cholesterol [Mass/Vol] 214 mg/dL High 0-199 [facility] Cholesterol in HDL [Mass/Vol] 37 mg/dL Normal >40 [facility] Cholesterol in LDL [Mass/Vol] 128 mg/dL High 0-99 [facility] Triglyceride [Mass/Vol] 246 mg/dL High 0-149 [facility] VLDL Cholesterol (Calculated) 49 mg/dL Normal [facility] CBC With Platelet and Differ entialon 06-06-2018 Abs Imm Granulocytes 0.03 E9/L Normal [facility] Basophils (Bld) [#/Vol] 0.05 E9/L Normal 0.00-0.20 [facility] Basophils/100 WBC (Bld) 0.7 % Normal 0.0-2.0 [facility] Eosinophils (Bld) [#/Vol] 0.18 E9/L Normal 0.05-0.50 [facility] Eosinophils/100 WBC (Bld) 2.3 % Normal 0.0-6.0 [facility] Erythrocyte distribution width (RBC) [Ratio] 13.1 fL Normal 11.5-15.0 [facility] Hematocrit (Bld) [Volume fraction] 43.6 % Normal 37.0-54.0 [facility] Hemoglobin (Bld) [Mass/Vol] 14.2 g/dL Normal 12.5-16.5 [facility] Imm Granulocytes 0.4 % Normal 0.0-5.0 [facility] Lymphocytes (Bld) [#/Vol] 2.17 E9/L Normal 1.50-4.00 [facility] Lymphocytes/100 WBC (Bld) 28.3 % Normal 20.0-42.0 [facility] MCH (RBC) [Entitic mass] 30.1 pg Normal 26.0-35.0 [facility] MCHC (RBC) [Mass/Vol] 32.6 % Normal 32.0-34.5 [facility] MCV (RBC) [Entitic vol] 92.4 fL Normal 80.0-99.9 [facility] Monocytes (Bld) [#/Vol] 0.49 E9/L Normal 0.10-0.95 [facility] Monocytes/100 WBC (Bld) 6.4 % Normal 2.0-12.0 [facility] Neutrophils (Bld) [#/Vol] 4.75 E9/L Normal 1.80-7.30 [facility] Neutrophils/100 WBC (Bld) 61.9 % Normal 43.0-80.0 [facility] Platelet mean volume (Bld) [Entitic vol] 10.4 fL Normal 7.0-12.0 [facility] Platelets (Bld) [#/Vol] 245 E9/L Normal 130-450 [facility] RBC (Bld) [#/Vol] 4.72 E12/L Normal 3.80-5.80 [facility] WBC (Bld) [#/Vol] 7.7 E9/L Normal 4.5-11.[address] [facility] [address] ABDOMEN PELVIS W IV CONTR [...] Nevaeh Edgar DO 06/06/18 Final result Normal [facility] Comprehensive Metabolic Pane rylan 06-06-2018 Albumin [Mass/Vol] 4.5 g/dL Normal 3.5-5.2 [facility] ALP [Catalytic activity/Vol] 79 U/L Normal 40-129 [facility] ALT [Catalytic activity/Vol] 81 U/L High 0-40 [facility] Anion gap [Moles/Vol] 10 mmol/L Normal 7-16 [facility] AST [Catalytic activity/Vol] 49 U/L High 0-39 [facility] Bilirubin [Mass/Vol] 0.4 mg/dL Normal 0.0-1.2 [facility] Calcium [Mass/Vol] 9.6 mg/dL Normal 8.6-10.2 [facility] Chloride [Moles/Vol] 100 mmol/L Normal 98-107 [facility] CO2 [Moles/Vol] 28 mmol/L Normal 22-29 [facility] Creatinine [Mass/Vol] 0.8 mg/dL Normal 0.7-1.2 [facility] GFR/1.73 sq M predicted among blacks MDRD (S/P/Bld) [Vol rate/Area] mL/min/{1.73_m2} Normal [facility] GFR/1.73 sq M predicted among non-blacks MDRD (S/P/Bld) [Vol rate/Area] mL/min/{1.73_m2} Normal >=60 [facility] Comment on above: Result Comment: Grey Inspector russ Kidney Disease: less than 60 ml/min/1.73 sq.m. Kidney Failure: less than 15 ml/min/1.73 sq.m. Results valid for patients 18 years and older. Glucose [Mass/Vol] 117 mg/dL High 74-99 [facility] Potassium [Moles/Vol] 4.3 mmol/L Normal 3.5-5.0 [facility] Protein [Mass/Vol] 7.2 g/dL Normal 6.4-8.3 [facility] Sodium [Moles/Vol] 138 mmol/L Normal 132-146 [facility] Urea nitrogen [Mass/Vol] 9 mg/dL Normal 6-20 [facility] Lactate Dehydrogenaseon 05-11 LDH [Catalytic activity/Vol] 193 U/L Normal 135-225 [facility] Comment on above: Order Comment: EPIC [id number] Lactic Acidon 06-06-2018 Lactate [Moles/Vol] 1.4 mmol/L Normal 0.5-2.2 [facility] Lipaseon 06-06-2018 Lipase [Catalytic activity/Vol] 450 U/L High 13-60 [facility] Prothrombin Timeon 9 INR Coag (PPP) [Relative time] 1.0 {INR} Normal [facility] PT Coag (PPP) [Time] 11.3 s Normal 9.3-12.4 [facility] CBC With Platelet and Differ entialon 03-30-2018 Abs Imm Granulocytes 0.02 E9/L Normal [facility] Basophils (Bld) [#/Vol] 0.03 E9/L Normal 0.00-0.20 [facility] Basophils/100 WBC (Bld) 0.6 % Normal 0.0-2.0 [facility] Eosinophils (Bld) [#/Vol] 0.08 E9/L Normal 0.05-0.50 [facility] Eosinophils/100 WBC (Bld) 1.6 % Normal 0.0-6.0 [facility] Erythrocyte distribution width (RBC) [Ratio] 12.2 fL Normal 11.5-15.0 [facility] Hematocrit (Bld) [Volume fraction] 40.3 % Normal 37.0-54.0 [facility] Hemoglobin (Bld) [Mass/Vol] 12.8 g/dL Normal 12.5-16.5 [facility] Imm Granulocytes 0.4 % Normal 0.0-5.0 [facility] Lymphocytes (Bld) [#/Vol] 1.94 E9/L Normal 1.50-4.00 [facility] Lymphocytes/100 WBC (Bld) 39.2 % Normal 20.0-42.0 [facility] MCH (RBC) [Entitic mass] 29.8 pg Normal 26.0-35.0 [facility] MCHC (RBC) [Mass/Vol] 31.8 % Low 32.0-34.5 [facility] MCV (RBC) [Entitic vol] 93.9 fL Normal 80.0-99.9 [facility] Monocytes (Bld) [#/Vol] 0.37 E9/L Normal 0.10-0.95 [facility] Monocytes/100 WBC (Bld) 7.5 % Normal 2.0-12.0 [facility] Neutrophils (Bld) [#/Vol] 2.51 E9/L Normal 1.80-7.30 [facility] Neutrophils/100 WBC (Bld) 50.7 % Normal 43.0-80.0 [facility] Platelet mean volume (Bld) [Entitic vol] 10.4 fL Normal 7.0-12.0 [facility] Platelets (Bld) [#/Vol] 208 E9/L Normal 130-450 [facility] RBC (Bld) [#/Vol] 4.29 E12/L Normal 3.80-5.80 [facility] WBC (Bld) [#/Vol] 5.0 E9/L Normal 4.5-11.5 [facility] Comprehensive Metabolic Pane rylan 03-30-2018 Albumin [Mass/Vol] 3.9 g/dL Normal 3.5-5.2 [facility] ALP [Catalytic activity/Vol] 65 U/L Normal 40-129 [facility] ALT [Catalytic activity/Vol] 66 U/L High 0-40 [facility] Anion gap [Moles/Vol] 7 mmol/L Normal 7-16 [facility] AST [Catalytic activity/Vol] 49 U/L High 0-39 [facility] Bilirubin [Mass/Vol] 0.4 mg/dL Normal 0.0-1.2 [facility] Calcium [Mass/Vol] 9.0 mg/dL Normal 8.6-10.2 [facility] Chloride [Moles/Vol] 106 mmol/L Normal 98-107 [facility] CO2 [Moles/Vol] 26 mmol/L Normal 22-29 [facility] Creatinine [Mass/Vol] 0.9 mg/dL Normal 0.7-1.2 [facility] GFR/1.73 sq M predicted among blacks MDRD (S/P/Bld) [Vol rate/Area] mL/min/{1.73_m2} Normal [facility] GFR/1.73 sq M predicted among non-blacks MDRD (S/P/Bld) [Vol rate/Area] mL/min/{1.73_m2} Normal >=60 [facility] Comment on above: Result Comment: Grey Inspector russ Kidney Disease: less than 60 ml/min/1.73 sq.m. Kidney Failure: less than 15 ml/min/1.73 sq.m. Results valid for patients 18 years and older. Glucose [Mass/Vol] 92 mg/dL Normal 74-99 [facility] Potassium [Moles/Vol] 4.4 mmol/L Normal 3.5-5.0 [facility] Protein [Mass/Vol] 6.3 g/dL Low 6.4-8.3 [facility] Sodium [Moles/Vol] 139 mmol/L Normal 132-146 [facility] Urea nitrogen [Mass/Vol] 6 mg/dL Normal 6-20 [facility] CBC With Platelet and Differ entialon 03-29-2018 Abs Imm Granulocytes 0.03 E9/L Normal [facility] Basophils (Bld) [#/Vol] 0.03 E9/L Normal 0.00-0.20 [facility] Basophils/100 WBC (Bld) 0.3 % Normal 0.0-2.0 [facility] Eosinophils (Bld) [#/Vol] 0.08 E9/L Normal 0.05-0.50 [facility] Eosinophils/100 WBC (Bld) 0.9 % Normal 0.0-6.0 [facility] Erythrocyte distribution width (RBC) [Ratio] 12.2 fL Normal 11.5-15.0 [facility] Hematocrit (Bld) [Volume fraction] 43.9 % Normal 37.0-54.0 [facility] Hemoglobin (Bld) [Mass/Vol] 14.7 g/dL Normal 12.5-16.5 [facility] Imm Granulocytes 0.3 % Normal 0.0-5.0 [facility] Lymphocytes (Bld) [#/Vol] 2.67 E9/L Normal 1.50-4.00 [facility] Lymphocytes/100 WBC (Bld) 30.2 % Normal 20.0-42.0 [facility] MCH (RBC) [Entitic mass] 30.8 pg Normal 26.0-35.0 [facility] MCHC (RBC) [Mass/Vol] 33.5 % Normal 32.0-34.5 [facility] MCV (RBC) [Entitic vol] 91.8 fL Normal 80.0-99.9 [facility] Monocytes (Bld) [#/Vol] 0.57 E9/L Normal 0.10-0.95 [facility] Monocytes/100 WBC (Bld) 6.4 % Normal 2.0-12.0 [facility] Neutrophils (Bld) [#/Vol] 5.46 E9/L Normal 1.80-7.30 [facility] Neutrophils/100 WBC (Bld) 61.9 % Normal 43.0-80.0 [facility] Platelet mean volume (Bld) [Entitic vol] 10.8 fL Normal 7.0-12.0 [facility] Platelets (Bld) [#/Vol] 263 E9/L Normal 130-450 [facility] RBC (Bld) [#/Vol] 4.78 E12/L Normal 3.80-5.80 [facility] WBC (Bld) [#/Vol] 8.8 E9/L Normal 4.5-11.[address] [facility] [address] ABDOMEN PELVIS W IV CONTR [...] Constance Baptiste MD 03/29/18 Final result Normal [facility] Comprehensive Metabolic Pane rylan 03-29-2018 Albumin [Mass/Vol] 5.0 g/dL Normal 3.5-5.2 [facility] ALP [Catalytic activity/Vol] 78 U/L Normal 40-129 [facility] ALT [Catalytic activity/Vol] 79 U/L High 0-40 [facility] Anion gap [Moles/Vol] 12 mmol/L Normal 7-16 [facility] AST [Catalytic activity/Vol] 64 U/L High 0-39 [facility] Bilirubin [Mass/Vol] 0.5 mg/dL Normal 0.0-1.2 [facility] Calcium [Mass/Vol] 9.6 mg/dL Normal 8.6-10.2 [facility] Chloride [Moles/Vol] 101 mmol/L Normal 98-107 [facility] CO2 [Moles/Vol] 25 mmol/L Normal 22-29 [facility] Creatinine [Mass/Vol] 0.9 mg/dL Normal 0.7-1.2 [facility] GFR/1.73 sq M predicted among blacks MDRD (S/P/Bld) [Vol rate/Area] mL/min/{1.73_m2} Normal [facility] GFR/1.73 sq M predicted among non-blacks MDRD (S/P/Bld) [Vol rate/Area] mL/min/{1.73_m2} Normal >=60 [facility] Comment on above: Result Comment: Grey Inspector russ Kidney Disease: less than 60 ml/min/1.73 sq.m. Kidney Failure: less than 15 ml/min/1.73 sq.m. Results valid for patients 18 years and older. Glucose [Mass/Vol] 96 mg/dL Normal 74-99 [facility] Potassium [Moles/Vol] 4.2 mmol/L Normal 3.5-5.0 [facility] Protein [Mass/Vol] 7.6 g/dL Normal 6.4-8.3 [facility] Sodium [Moles/Vol] 138 mmol/L Normal 132-146 [facility] Urea nitrogen [Mass/Vol] 9 mg/dL Normal 6-20 [facility] Lactic Acidon 03-29-2018 Lactate [Moles/Vol] 0.7 mmol/L Normal 0.5-2.2 [facility] Lipaseon 03-29-2018 Lipase [Catalytic activity/Vol] 88 U/L High 13-60 [facility] Lipid Panelon 03-29-2018 Cholesterol [Mass/Vol] 255 mg/dL High 0-199 [facility] Cholesterol in HDL [Mass/Vol] 53 mg/dL Normal >40 [facility] Cholesterol in LDL [Mass/Vol] 164 mg/dL High 0-99 [facility] Triglyceride [Mass/Vol] 188 mg/dL High 0-149 [facility] VLDL Cholesterol (Calculated) 38 mg/dL Normal [facility] Magnesiumon 03-29-2018 Magnesium [Mass/Vol] 2.3 mg/dL Normal 1.6-2.6 [facility] POCT Venouson 03-29-2018 Anion gap [Moles/Vol] 11 mmol/L Normal 7-16 [facility] Creatinine [Mass/Vol] 0.9 mg/dL Normal 0.7-1.2 [facility] GFR/1.73 sq M predicted among blacks MDRD (S/P/Bld) [Vol rate/Area] mL/min/{1.73_m2} Normal [facility] GFR/1.73 sq M.predicted MDRD (S/P/Bld) [Vol rate/Area] mL/min/{1.73_m2} Normal >=60 [facility] Comment on above: Result Comment: Grey Inspector russ Kidney Disease: less than 60 ml/min/1.73 sq.m. Kidney Failure: less than 15 ml/min/1.73 sq.m. Results valid for patients 18 years and older. Glucose [Mass/Vol] 97 mg/dL Normal 74-99 [facility] POC Cl 104 mmol/L Normal 100-108 [facility] POC CO2 23 mmol/L Normal 22-29 [facility] POC K 4.0 mmol/L Normal 3.5-5.0 [facility] POC Na 138 mmol/L Normal 132-146 [facility] Comment on above: Result Comment: ALL POC CRITICAL VALUES MUST BE COMMUNICATED BY TESTING PERSONNEL PER DEPARTMENT POLICY. Urea nitrogen [Mass/Vol] 9 mg/dL Normal 8-23 [facility] Phosphoruson 03-29-2018 Phosphate [Mass/Vol] 4.1 mg/dL Normal 2.5-4.5 [facility] US ABDOMEN LIMITEDon 019 US ABDOMEN LIMITED [...] Nevaeh Edgar DO 03/29/18 Final result Normal [facility] CBC With Platelet and Differ entialon 03-28-2018 Abs Imm Granulocytes 0.03 E9/L Normal [facility] Basophils (Bld) [#/Vol] 0.03 E9/L Normal 0.00-0.20 [facility] Basophils/100 WBC (Bld) 0.4 % Normal 0.0-2.0 [facility] Eosinophils (Bld) [#/Vol] 0.08 E9/L Normal 0.05-0.50 [facility] Eosinophils/100 WBC (Bld) 0.9 % Normal 0.0-6.0 [facility] Erythrocyte distribution width (RBC) [Ratio] 12.3 fL Normal 11.5-15.0 [facility] Hematocrit (Bld) [Volume fraction] 46.5 % Normal 37.0-54.0 [facility] Hemoglobin (Bld) [Mass/Vol] 15.2 g/dL Normal 12.5-16.5 [facility] Imm Granulocytes 0.4 % Normal 0.0-5.0 [facility] Lymphocytes (Bld) [#/Vol] 2.85 E9/L Normal 1.50-4.00 [facility] Lymphocytes/100 WBC (Bld) 33.3 % Normal 20.0-42.0 [facility] MCH (RBC) [Entitic mass] 29.7 pg Normal 26.0-35.0 [facility] MCHC (RBC) [Mass/Vol] 32.7 % Normal 32.0-34.5 [facility] MCV (RBC) [Entitic vol] 90.8 fL Normal 80.0-99.9 [facility] Monocytes (Bld) [#/Vol] 0.57 E9/L Normal 0.10-0.95 [facility] Monocytes/100 WBC (Bld) 6.7 % Normal 2.0-12.0 [facility] Neutrophils (Bld) [#/Vol] 4.99 E9/L Normal 1.80-7.30 [facility] Neutrophils/100 WBC (Bld) 58.3 % Normal 43.0-80.0 [facility] Platelet mean volume (Bld) [Entitic vol] 10.6 fL Normal 7.0-12.0 [facility] Platelets (Bld) [#/Vol] 277 E9/L Normal 130-450 [facility] RBC (Bld) [#/Vol] 5.12 E12/L Normal 3.80-5.80 [facility] WBC (Bld) [#/Vol] 8.6 E9/L Normal 4.5-11.5 [facility] Comprehensive Metabolic Pane l reflex Mgon 03-28-2018 Albumin [Mass/Vol] 4.8 g/dL Normal 3.5-5.2 [facility] ALP [Catalytic activity/Vol] 81 U/L Normal 40-129 [facility] ALT [Catalytic activity/Vol] 76 U/L High 0-40 [facility] Anion gap [Moles/Vol] 13 mmol/L Normal 7-16 [facility] AST [Catalytic activity/Vol] 48 U/L High 0-39 [facility] Bilirubin [Mass/Vol] 0.4 mg/dL Normal 0.0-1.2 [facility] Calcium [Mass/Vol] 10.2 mg/dL Normal 8.6-10.2 [facility] Chloride [Moles/Vol] 100 mmol/L Normal 98-107 [facility] CO2 [Moles/Vol] 26 mmol/L Normal 22-29 [facility] Creatinine [Mass/Vol] 0.9 mg/dL Normal 0.7-1.2 [facility] GFR/1.73 sq M predicted among blacks MDRD (S/P/Bld) [Vol rate/Area] mL/min/{1.73_m2} Normal [facility] GFR/1.73 sq M predicted among non-blacks MDRD (S/P/Bld) [Vol rate/Area] mL/min/{1.73_m2} Normal >=60 [facility] Comment on above: Result Comment: Grey Inspector russ Kidney Disease: less than 60 ml/min/1.73 sq.m. Kidney Failure: less than 15 ml/min/1.73 sq.m. Results valid for patients 18 years and older. Glucose [Mass/Vol] 101 mg/dL High 74-99 [facility] Potassium reflex Mg 4.1 mmol/L Normal 3.5-5.0 [facility] Protein [Mass/Vol] 7.9 g/dL Normal 6.4-8.3 [facility] Sodium [Moles/Vol] 139 mmol/L Normal 132-146 [facility] Urea nitrogen [Mass/Vol] 10 mg/dL Normal 6-20 [facility] Lipaseon 03-28-2018 Lipase [Catalytic activity/Vol] 141 U/L High 13-60 [facility] XR LUMBAR SPINE (2-3 VIEWS)o n [...] Domi Stein MD 03/13/18 Final result Normal [facility] Vital Signs Date Time Vital Sign Value Performing Clinician Facility 12-08-2024 13:20-0400 Diastolic blood pressure 83 mm[Hg] Sonya Cramer MD Work Phone: [facility] 12-08-2024 13:20-0400 Heart rate 56 /min Sonya Cramer MD Work Phone: [facility] 12-08-2024 13:20-0400 Respiratory rate 18 /min Sonya Cramer MD Work Phone: [facility] 12-08-2024 13:20-0400 SaO2% (BldA) [Mass fraction] 100 % Sonya Cramer MD Work Phone: [facility] 12-08-2024 13:20-0400 Systolic blood pressure 127 mm[Hg] Sonya Cramer MD Work Phone: [facility] 12-08-2024 13:00-0400 Body temperature 97.3 [degF] Sonya Cramer MD Work Phone: [facility] 12-08-2024 12:25-0400 Body height 185.4 cm Sonya Cramer MD Work Phone: [facility] 12-08-2024 12:25-0400 Body mass index (BMI) [Ratio] 25.73 kg/m2 Sonya Cramer MD Work Phone: [facility] 12-08-2024 12:25-0400 Body weight 88.45 kg Sonya Cramer MD Work Phone: [facility] 12-01-2024 11:59-0400 Body temperature 98.4 [degF] No Primary Care Physician [facility] 12-01-2024 11:59-0400 Diastolic blood pressure 70 mm[Hg] No Primary Care Physician [facility] 12-01-2024 11:59-0400 Heart rate 59 /min No Primary Care Physician [facility] 12-01-2024 11:59-0400 Respiratory rate 18 /min No Primary Care Physician [facility] 12-01-2024 11:59-0400 SaO2% (BldA) [Mass fraction] 98 % No Primary Care Physician [facility] 12-01-2024 11:59-0400 Systolic blood pressure 122 mm[Hg] No Primary Care Physician [facility] 11-30-2024 13:45-0400 Body height 185.42 cm No Primary Care Physician [facility] 11-30-2024 13:45-0400 Body weight 84.32 kg No Primary Care Physician [facility] 11-30-2024 01:59-0400 Body mass index (BMI) [Ratio] 24.5 kg/m2 No Primary Care Physician [facility] 11-01-2024 08:55-0400 Body height 185.4 cm Guillermo TextPayMebriansky PA-C Work Phone: [facility] 11-01-2024 08:55-0400 Body mass index (BMI) [Ratio] 26.55 kg/m2 Guillermo TextPayMehosky PA-C Work Phone: [facility] 11-01-2024 08:55-0400 Body temperature 97 [degF] Guillermo TextPayMehosky PA-C Work Phone: [facility] 11-01-2024 08:55-0400 Body weight 91.26 kg Guillermo Vichosky PA-C Work Phone: [facility] 11-01-2024 08:55-0400 Diastolic blood pressure 75 mm[Hg] Guillermo Vichosky PA-C Work Phone: [facility] 11-01-2024 08:55-0400 Heart rate 72 /min Guillermo Vichosky PA-C Work Phone: [facility] 11-01-2024 08:55-0400 SaO2% (BldA) [Mass fraction] 98 % Guillermo Elieser PA-C Work Phone: [facility] 11-01-2024 08:55-0400 Systolic blood pressure 120 mm[Hg] Guillermo Elieser PA-C Work Phone: [facility] 08-23-2024 11:02-0400 Body temperature 96.4 [degF] Seema Hartley DIRECTOR OF [employer] Work Phone: [facility] 08-23-2024 11:02-0400 Diastolic blood pressure 62 mm[Hg] Seema Hartley DIRECTOR OF [employer] Work Phone: [facility] 08-23-2024 11:02-0400 Heart rate 73 /min Seema Mclains DIRECTOR OF [employer] Work Phone: [facility] 08-23-2024 11:02-0400 SaO2% (BldA) [Mass fraction] 97 % Seema Hartley DIRECTOR OF [employer] Work Phone: [facility] 08-23-2024 11:02-0400 Systolic blood pressure 114 mm[Hg] Seema Hartley DIRECTOR OF [employer] Work Phone: [facility] 06-26-2024 22:08-0400 Diastolic blood pressure 97 mm[Hg] Mejgon Gifty DO Work Phone: [facility] 06-26-2024 22:08-0400 Heart rate 94 /min Mejgon Gifty DO Work Phone: [facility] 06-26-2024 22:08-0400 Respiratory rate 18 /min Mejgon Gifty DO Work Phone: [facility] 06-26-2024 22:08-0400 SaO2% (BldA) [Mass fraction] 98 % Mejgon Gifty DO Work Phone: [facility] 06-26-2024 22:08-0400 Systolic blood pressure 136 mm[Hg] Mejgon Gifty DO Work Phone: [facility] 06-26-2024 19:11-0400 Body height 185.4 cm Mattie Durbin DO Work Phone: [facility] 06-26-2024 19:11-0400 Body mass index (BMI) [Ratio] 27.71 kg/m2 Mattie Durbin DO Work Phone: [facility] 06-26-2024 19:11-0400 Body weight 95.25 kg Mattie Durbin DO Work Phone: [facility] 06-26-2024 19:10-0400 Body temperature 98.2 [degF] Mattie Durbin DO Work Phone: [facility] 06-20-2024 00:09-0400 Diastolic blood pressure 70 mm[Hg] Cory Adame DO Work Phone: [facility] 06-20-2024 00:09-0400 Heart rate 69 /min Cory Adame DO Work Phone: [facility] 06-20-2024 00:09-0400 Respiratory rate 14 /min Cory Adame DO Work Phone: [facility] 06-20-2024 00:09-0400 SaO2% (BldA) [Mass fraction] 99 % Cory Adame DO Work Phone: [facility] 06-20-2024 00:09-0400 Systolic blood pressure 111 mm[Hg] Cory Wakefieldy DO Work Phone: [facility] 06-19-2024 19:27-0400 Body temperature 97.39 [degF] Cory Wakefieldy DO Work Phone: [facility] 06-19-2024 19:25-0400 Body height 185.4 cm Cory Wakefieldy DO Work Phone: [facility] 06-19-2024 19:25-0400 Body mass index (BMI) [Ratio] 29.03 kg/m2 Cory Wakefieldy DO Work Phone: [facility] 06-19-2024 19:25-0400 Body weight 99.79 kg Cory Adame DO Work Phone: [facility] 06-18-2024 16:59-0400 Diastolic blood pressure 94 mm[Hg] Tam Rich DO Work Phone: [facility] 06-18-2024 16:59-0400 Heart rate 90 /min Tam Rich DO Work Phone: [facility] 06-18-2024 16:59-0400 Respiratory rate 16 /min Tam Rich DO Work Phone: [facility] 06-18-2024 16:59-0400 Systolic blood pressure 142 mm[Hg] Tam Rich DO Work Phone: [facility] 06-18-2024 15:35-0400 Body temperature 97.3 [degF] Tam Rich DO Work Phone: [facility] 06-18-2024 15:35-0400 SaO2% (BldA) [Mass fraction] 100 % Tam Rich DO Work Phone: [facility] 06-18-2024 15:35-0400 Body height 185.4 cm Tam Rich DO Work Phone: [facility] 06-18-2024 15:35-0400 Body mass index (BMI) [Ratio] 27.71 kg/m2 Tam Rich DO Work Phone: [facility] 06-18-2024 15:35-0400 Body weight 95.25 kg Tam Rich DO Work Phone: [facility] 06-12-2024 23:36-0400 Diastolic blood pressure 92 mm[Hg] Donald Hill Jr., DO Work Phone: [facility] 06-12-2024 23:36-0400 Heart rate 97 /min Donald Hill Jr., DO Work Phone: [facility] 06-12-2024 23:36-0400 Respiratory rate 16 /min Donald Hill JrJose, DO Work Phone: [facility] 06-12-2024 23:36-0400 SaO2% (BldA) [Mass fraction] 97 % Donald Hill Jr., DO Work Phone: [facility] 06-12-2024 23:36-0400 Systolic blood pressure 159 mm[Hg] Donald Hill Jr., DO Work Phone: [facility] 06-12-2024 20:55-0400 Body mass index (BMI) [Ratio] 29.03 kg/m2 Donald Hill Jr., DO Work Phone: [facility] 06-12-2024 20:55-0400 Body temperature 100 [degF] Donald Hill Jr., DO Work Phone: [facility] 06-12-2024 20:55-0400 Body weight 99.79 kg Donald Hill Jr., DO Work Phone: [facility] 06-04-2024 15:37-0400 Body mass index (BMI) [Ratio] 29.69 kg/m2 Josseline Weber MD Work Phone: [facility] 06-04-2024 15:37-0400 Body temperature 97.3 [degF] Josseline Weber MD Work Phone: [facility] 06-04-2024 15:37-0400 Body weight 102.06 kg Josseline Weber MD Work Phone: [facility] 06-04-2024 15:37-0400 Diastolic blood pressure 109 mm[Hg] Josseline Weber MD Work Phone: [facility] 06-04-2024 15:37-0400 Heart rate 103 /min Josseline Weber MD Work Phone: [facility] 06-04-2024 15:37-0400 Respiratory rate 18 /min Josseline Weber MD Work Phone: [facility] 06-04-2024 15:37-0400 SaO2% (BldA) [Mass fraction] 99 % Josseline Weber MD Work Phone: [facility] 06-04-2024 15:37-0400 Systolic blood pressure 157 mm[Hg] Josseline Weber MD Work Phone: [facility] 06-01-2024 12:57-0400 Body height 185.4 cm Seema Hartley DIRECTOR OF [employer] Work Phone: [facility] 06-01-2024 12:57-0400 Body mass index (BMI) [Ratio] 29.79 kg/m2 Seema Hartley DIRECT[employer] OF [employer] Work Phone: [facility] 06-01-2024 12:57-0400 Body temperature 97 [degF] Seema Hartley DIRECTOR OF [employer] Work Phone: [facility] 06-01-2024 12:57-0400 Body weight 102.42 kg Seema Hartley DIRECTOR OF [employer] Work Phone: [facility] 06-01-2024 12:57-0400 Diastolic blood pressure 78 mm[Hg] Seema Hartley DIRECTOR OF [employer] Work Phone: [facility] 06-01-2024 12:57-0400 Heart rate 80 /min Seema Hartley DIRECTOR OF [employer] Work Phone: [facility] 06-01-2024 12:57-0400 SaO2% (BldA) [Mass fraction] 98 % Seema Hartley DIRECTOR OF [employer] Work Phone: [facility] 06-01-2024 12:57-0400 Systolic blood pressure 116 mm[Hg] Seema Hartley DIRECTOR OF [employer] Work Phone: [facility] 05-30-2024 22:07-0400 Body height 185.4 cm Mattie Gifty DO Work Phone: [facility] 05-30-2024 22:07-0400 Body mass index (BMI) [Ratio] 32.98 kg/m2 Mejgon Gifty DO Work Phone: [facility] 05-30-2024 22:07-0400 Body temperature 97.9 [degF] Mattie Gifty DO Work Phone: [facility] 05-30-2024 22:07-0400 Body weight 113.4 kg Mattie Gallegosya DO Work Phone: [facility] 05-30-2024 22:07-0400 Diastolic blood pressure 96 mm[Hg] Latonian Gifty DO Work Phone: [facility] 05-30-2024 22:07-0400 Heart rate 88 /min Mattie Gifty DO Work Phone: [facility] 05-30-2024 22:07-0400 Respiratory rate 18 /min Mattie Gifty DO Work Phone: [facility] 05-30-2024 22:07-0400 SaO2% (BldA) [Mass fraction] 97 % Mattie Gallegosya DO Work Phone: [facility] 05-30-2024 22:07-0400 Systolic blood pressure 149 mm[Hg] Mattie Gallegosya DO Work Phone: [facility] 05-22-2024 17:16-0400 Diastolic blood pressure 88 mm[Hg] Tam Rich DO Work Phone: [facility] 05-22-2024 17:16-0400 Heart rate 97 /min Tam Rich DO Work Phone: [facility] 05-22-2024 17:16-0400 Respiratory rate 16 /min Tam Rich DO Work Phone: [facility] 05-22-2024 17:16-0400 SaO2% (BldA) [Mass fraction] 99 % Tam Rich DO Work Phone: [facility] 05-22-2024 17:16-0400 Systolic blood pressure 149 mm[Hg] Tam Rich DO Work Phone: [facility] 05-22-2024 14:09-0400 Body temperature 97 [degF] Tam Rich DO Work Phone: [facility] 05-07-2024 18:12-0400 Diastolic blood pressure 107 mm[Hg] Markie Gombash DO Work Phone: [facility] 05-07-2024 18:12-0400 Heart rate 84 /min Markie Gombash DO Work Phone: [facility] 05-07-2024 18:12-0400 Respiratory rate 16 /min Markie Gombash DO Work Phone: [facility] 05-07-2024 18:12-0400 SaO2% (BldA) [Mass fraction] 97 % Markie Gombash DO Work Phone: [facility] 05-07-2024 18:12-0400 Systolic blood pressure 142 mm[Hg] Markie Gombash DO Work Phone: [facility] 05-07-2024 16:27-0400 Body temperature 97.39 [degF] Markie Gombash DO Work Phone: [facility] 05-07-2024 16:23-0400 Body height 185.4 cm Markie Gombash DO Work Phone: [facility] 05-07-2024 16:23-0400 Body mass index (BMI) [Ratio] 32.98 kg/m2 Markie Gombash DO Work Phone: [facility] 05-07-2024 16:23-0400 Body weight 113.4 kg Markie Gombash DO Work Phone: [facility] 04-20-2024 04:57-0400 Body temperature 97.81 [degF] Nancy Sultana DO Work Phone: [facility] 04-20-2024 04:57-0400 Diastolic blood pressure 83 mm[Hg] Nancylorraine Sultana DO Work Phone: [facility] 04-20-2024 04:57-0400 Heart rate 62 /min Nancylorraine Sultana DO Work Phone: [facility] 03-12-2025 04:57-0400 Respiratory rate 16 /min Nancy Sultana DO Work Phone: [facility] 04-20-2024 04:57-0400 SaO2% (BldA) [Mass fraction] 97 % Nancy Sultana DO Work Phone: [facility] 04-20-2024 04:57-0400 Systolic blood pressure 129 mm[Hg] Nancy Sultnaa DO Work Phone: [facility] 04-16-2024 23:27-0500 Body height 185.4 cm Nancy Sultana DO Work Phone: [facility] 04-16-2024 23:27-0500 Body mass index (BMI) [Ratio] 32.32 kg/m2 Nancy Sultana DO Work Phone: [facility] 04-16-2024 23:27-0500 Body weight 111.13 kg Nancy Sultana DO Work Phone: [facility] 04-06-2024 13:10-0500 Diastolic blood pressure 65 mm[Hg] Enio Boyd [facility] 04-06-2024 13:10-0500 Heart rate 65 /min Enio Boyd DO [facility] 04-06-2024 13:10-0500 Systolic blood pressure 112 mm[Hg] Enio Boyd DO [facility] 04-06-2024 11:07-0500 Body temperature 98.8 [degF] Enio Boyd DO Work Phone: [facility] 04-06-2024 11:07-0500 Respiratory rate 16 /min Enio Boyd DO Work Phone: [facility] 04-06-2024 11:07-0500 SaO2% (BldA) [Mass fraction] 96 % Enio Boyd DO Work Phone: [facility] 04-04-2024 04:10-0500 Body height 185.4 cm Enio Boyd DO Work Phone: [facility] 04-04-2024 04:10-0500 Body mass index (BMI) [Ratio] 32.32 kg/m2 Enio Boyd DO Work Phone: [facility] 04-04-2024 04:10-0500 Body weight 111.13 kg Enio Boyd DO Work Phone: [facility] 03-22-2024 15:37-0500 Diastolic blood pressure 103 mm[Hg] Tam Rich DO Work Phone: [facility] 03-22-2024 15:37-0500 Heart rate 102 /min Tam Rich DO Work Phone: [facility] 03-22-2024 15:37-0500 Respiratory rate 16 /min Tam Rich DO Work Phone: [facility] 03-22-2024 15:37-0500 SaO2% (BldA) [Mass fraction] 97 % Tma Rich DO Work Phone: [facility] 03-22-2024 15:37-0500 Systolic blood pressure 154 mm[Hg] Tam Rich DO Work Phone: [facility] 03-22-2024 13:17-0500 Body temperature 97.39 [degF] Tam Rich DO Work Phone: [facility] 02-08-2024 12:04-0500 Body temperature 97.9 [degF] Francisco Landa MD Work Phone: [facility] 02-08-2024 12:04-0500 Diastolic blood pressure 102 mm[Hg] Francisco Landa MD Work Phone: [facility] 02-08-2024 12:04-0500 Heart rate 102 /min Francisco Landa MD Work Phone: [facility] 02-08-2024 12:04-0500 Respiratory rate 18 /min Francisco Landa MD Work Phone: [facility] 02-08-2024 12:04-0500 SaO2% (BldA) [Mass fraction] 95 % Francisco Landa MD Work Phone: [facility] 02-08-2024 12:04-0500 Systolic blood pressure 141 mm[Hg] Francisco Landa MD Work Phone: [facility] 02-06-2024 13:02-0500 Body height 185.4 cm Francisco Landa MD Work Phone: [facility] 02-04-2024 13:21-0500 Body mass index (BMI) [Ratio] 31 kg/m2 Francisco Landa MD Work Phone: [facility] 02-04-2024 13:21-0500 Body weight 106.59 kg Francisco Landa MD Work Phone: [facility] 01-26-2024 05:42-0500 Body temperature 97.7 [degF] Calvin Stephens MD Work Phone: [facility] 01-26-2024 05:42-0500 Diastolic blood pressure 92 mm[Hg] Calvin Stephens MD Work Phone: [facility] 01-26-2024 05:42-0500 Heart rate 83 /min Calvin Stephens MD Work Phone: [facility] 01-26-2024 05:42-0500 Respiratory rate 18 /min Calvin Stephens MD Work Phone: [facility] 01-26-2024 05:42-0500 SaO2% (BldA) [Mass fraction] 97 % Calvin Stephens MD Work Phone: [facility] 01-26-2024 05:42-0500 Systolic blood pressure 134 mm[Hg] Calvin Stephens MD Work Phone: [facility] 01-08-2024 05:28-0500 Body temperature 97.3 [degF] Gracy Dyer DO Work Phone: [facility] 01-08-2024 05:28-0500 Diastolic blood pressure 107 mm[Hg] Gracy Dyer DO Work Phone: [facility] 01-08-2024 05:28-0500 Heart rate 91 /min Gracy Dyer DO Work Phone: [facility] 01-08-2024 05:28-0500 Respiratory rate 18 /min Gracy Dyer DO Work Phone: [facility] 01-08-2024 05:28-0500 SaO2% (BldA) [Mass fraction] 97 % Gracy Dyer DO Work Phone: [facility] 01-08-2024 05:28-0500 Systolic blood pressure 164 mm[Hg] Gracy Dyer DO Work Phone: [facility] 01-08-2024 05:26-0500 Body height 185.4 cm Gracy Dyer DO Work Phone: [facility] 01-08-2024 05:26-0500 Body mass index (BMI) [Ratio] 32.32 kg/m2 Gracy Dyer DO Work Phone: [facility] 01-08-2024 05:26-0500 Body weight 111.13 kg Gracy Dyer DO Work Phone: [facility] 12-17-2023 07:22-0500 Body temperature 97.81 [degF] Idris Danielson MD Work Phone: [facility] 12-17-2023 07:22-0500 Diastolic blood pressure 92 mm[Hg] Idris Danielson MD Work Phone: [facility] 12-17-2023 07:22-0500 Heart rate 62 /min Idris Danielson MD Work Phone: [facility] 12-17-2023 07:22-0500 Respiratory rate 17 /min Idris Danielson MD Work Phone: [facility] 12-17-2023 07:22-0500 SaO2% (BldA) [Mass fraction] 96 % Idris Danielson MD Work Phone: [facility] 12-17-2023 07:22-0500 Systolic blood pressure 146 mm[Hg] Idris Danielson MD Work Phone: [facility] 12-16-2023 07:27-0500 Body height 177.8 cm Idris Danielson MD Work Phone: [facility] 12-14-2023 08:18-0500 Body mass index (BMI) [Ratio] 36.06 kg/m2 Idris Danielson MD Work Phone: [facility] 12-14-2023 08:18-0500 Body weight 114 kg Idris Danielson MD Work Phone: [facility] 11-28-2023 09:05-0400 Body temperature 97.5 [degF] DENA Jett MD Work Phone: [facility] 11-28-2023 09:05-0400 Diastolic blood pressure 75 mm[Hg] DENA Jett MD Work Phone: [facility] 11-28-2023 09:05-0400 Heart rate 69 /min DENA Jett MD Work Phone: [facility] 11-28-2023 09:05-0400 Respiratory rate 17 /min DENA Jett MD Work Phone: [facility] 11-28-2023 09:05-0400 SaO2% (BldA) [Mass fraction] 96 % DENA Jett MD Work Phone: [facility] 11-28-2023 09:05-0400 Systolic blood pressure 125 mm[Hg] DENA Jett MD Work Phone: [facility] 11-27-2023 15:12-0400 Body height 185.4 cm DENA Jett MD Work Phone: [facility] 11-21-2023 14:17-0400 Body mass index (BMI) [Ratio] 33.25 kg/m2 DENA Jett MD Work Phone: [facility] 11-21-2023 14:17-0400 Body weight 114.31 kg DENA Jett MD Work Phone: [facility] 10-18-2023 07:50-0400 Body temperature 96.91 [degF] Francisco Zee MD Work Phone: [facility] 10-18-2023 07:50-0400 Diastolic blood pressure 73 mm[Hg] Francisco Zee MD Work Phone: [facility] 10-18-2023 07:50-0400 Heart rate 79 /min Francisco Zee MD Work Phone: [facility] 10-18-2023 07:50-0400 Respiratory rate 18 /min Francisco Zee MD Work Phone: [facility] 10-18-2023 07:50-0400 SaO2% (BldA) [Mass fraction] 94 % Francisco Zee MD Work Phone: [facility] 10-18-2023 07:50-0400 Systolic blood pressure 120 mm[Hg] Francisco Zee MD Work Phone: [facility] 10-16-2023 18:54-0400 Body height 185 cm Francisco Zee MD Work Phone: [facility] 10-16-2023 18:54-0400 Body mass index (BMI) [Ratio] 33.13 kg/m2 Francisco Zee MD Work Phone: [facility] 10-16-2023 18:54-0400 Body weight 113.4 kg Francisco Zee MD Work Phone: [facility] 10-16-2023 04:13-0400 Diastolic blood pressure 88 mm[Hg] Idris Danielson MD Work Phone: [facility] 10-16-2023 04:13-0400 Heart rate 72 /min Idris Danielson MD Work Phone: [facility] 10-16-2023 04:13-0400 Respiratory rate 16 /min Idris Danielson MD Work Phone: [facility] 10-16-2023 04:13-0400 SaO2% (BldA) [Mass fraction] 96 % Idris Danielson MD Work Phone: [facility] 10-16-2023 04:13-0400 Systolic blood pressure 158 mm[Hg] Idris Danielson MD Work Phone: [facility] 10-16-2023 01:44-0400 Body height 185.4 cm Idris Danielson MD Work Phone: [facility] 10-16-2023 01:44-0400 Body mass index (BMI) [Ratio] 32.98 kg/m2 Idris Danielson MD Work Phone: [facility] 10-16-2023 01:44-0400 Body temperature 97.39 [degF] Idris Danielson MD Work Phone: [facility] 10-16-2023 01:44-0400 Body weight 113.4 kg Idris Danielson MD Work Phone: [facility] 10-01-2023 03:04-0400 Body temperature 97.9 [degF] Bhupinder Boyd MD Work Phone: [facility] 10-01-2023 03:04-0400 Diastolic blood pressure 100 mm[Hg] Bhupinder Boyd MD Work Phone: [facility] 10-01-2023 03:04-0400 Heart rate 94 /min Bhupinder Boyd MD Work Phone: [facility] 10-01-2023 03:04-0400 Respiratory rate 18 /min Bhupinder Boyd MD Work Phone: [facility] 10-01-2023 03:04-0400 SaO2% (BldA) [Mass fraction] 97 % Bhupinder Boyd MD Work Phone: [facility] 10-01-2023 03:04-0400 Systolic blood pressure 146 mm[Hg] Bhupinder Boyd MD Work Phone: [facility] 08-15-2023 11:10-0400 Body temperature 98.01 [degF] Jossy Lynn MD Work Phone: [facility] 08-15-2023 11:10-0400 Diastolic blood pressure 91 mm[Hg] Jossy Lynn MD Work Phone: [facility] 08-15-2023 11:10-0400 Heart rate 63 /min Jossy Lynn MD Work Phone: [facility] 08-15-2023 11:10-0400 Respiratory rate 16 /min Jossy Lynn MD Work Phone: [facility] 08-15-2023 11:10-0400 SaO2% (BldA) [Mass fraction] 95 % Jossy Lynn MD Work Phone: [facility] 08-15-2023 11:10-0400 Systolic blood pressure 150 mm[Hg] Jossy Lynn MD Work Phone: [facility] 08-10-2023 20:07-0400 Body height 185.4 cm Jossy Lynn MD Work Phone: [facility] 08-10-2023 20:07-0400 Body mass index (BMI) [Ratio] 35.62 kg/m2 Jossy Lynn MD Work Phone: [facility] 08-10-2023 20:07-0400 Body weight 122.47 kg Jossy Lynn MD Work Phone: [facility] 06-28-2023 09:13-0400 Body temperature 97.11 [degF] Jossy Lynn MD Work Phone: [facility] 06-28-2023 09:13-0400 Diastolic blood pressure 91 mm[Hg] Jossy Lynn MD Work Phone: [facility] 06-28-2023 09:13-0400 Heart rate 66 /min Jossy Lynn MD Work Phone: [facility] 06-28-2023 09:13-0400 Respiratory rate 16 /min Jossy Lynn MD Work Phone: [facility] 06-28-2023 09:13-0400 SaO2% (BldA) [Mass fraction] 96 % Jossy Lynn MD Work Phone: [facility] 06-28-2023 09:13-0400 Systolic blood pressure 145 mm[Hg] Jossy Lynn MD Work Phone: [facility] 06-25-2023 10:29-0400 Body height 185.4 cm Jossy Lynn MD Work Phone: [facility] 06-25-2023 10:29-0400 Body mass index (BMI) [Ratio] 32.98 kg/m2 Jsosy Lynn MD Work Phone: [facility] 06-25-2023 10:29-0400 Body weight 113.4 kg Jossy Lynn MD Work Phone: [facility] 01-07-2023 08:05-0500 Body height 185.4 cm Erin Signs Work Phone: [facility] 01-07-2023 08:05-0500 Body mass index (BMI) [Ratio] 32.32 kg/m2 Erin Signs Work Phone: [facility] 01-07-2023 08:05-0500 Body temperature 97.3 [degF] Erin Signs Work Phone: [facility] 01-07-2023 08:05-0500 Body weight 111.13 kg Erin Signs Work Phone: [facility] 01-07-2023 08:05-0500 Diastolic blood pressure 78 mm[Hg] Erin Signs Work Phone: [facility] 01-07-2023 08:05-0500 Heart rate 64 /min Erin Signs Work Phone: [facility] 01-07-2023 08:05-0500 SaO2% (BldA) [Mass fraction] 98 % Erin Arce MD Work Phone: [facility] 01-07-2023 08:05-0500 Systolic blood pressure 124 mm[Hg] Erin Arce MD Work Phone: [facility] 12-16-2022 23:58-0500 Body temperature 98.2 [degF] Duong Milian MD Work Phone: [facility] 12-16-2022 23:58-0500 Diastolic blood pressure 76 mm[Hg] Duong Milian MD Work Phone: [facility] 12-16-2022 23:58-0500 Heart rate 65 /min Duong Milian MD Work Phone: [facility] 12-16-2022 23:58-0500 Respiratory rate 18 /min Duong Milian MD Work Phone: [facility] 12-16-2022 23:58-0500 SaO2% (BldA) [Mass fraction] 96 % Duong Milian MD Work Phone: [facility] 12-16-2022 23:58-0500 Systolic blood pressure 112 mm[Hg] Duong Milian MD Work Phone: [facility] 11-08-2022 12:00-0400 Body temperature 97.7 [degF] Bhupinder Boyd MD Work Phone: [facility] 11-08-2022 12:00-0400 Diastolic blood pressure 84 mm[Hg] Bhupinder Boyd MD Work Phone: [facility] 11-08-2022 12:00-0400 Heart rate 78 /min Bhupinder Boyd MD Work Phone: [facility] 11-08-2022 12:00-0400 Respiratory rate 16 /min Bhupinder Boyd MD Work Phone: [facility] 11-08-2022 12:00-0400 SaO2% (BldA) [Mass fraction] 95 % Bhupinder Boyd MD Work Phone: [facility] 11-08-2022 12:00-0400 Systolic blood pressure 124 mm[Hg] Bhupinder Boyd MD Work Phone: [facility] 11-06-2022 09:00-0400 Body mass index (BMI) [Ratio] 36.3 kg/m2 Bhupinder Boyd MD Work Phone: [facility] 11-06-2022 09:00-0400 Body weight 114.76 kg Bhupinder Boyd MD Work Phone: [facility] 11-06-2022 06:47-0400 Body height 177.8 cm Bhupinder Boyd MD Work [facility]: [facility] [employer] 08-10-2022 04:06-0400 Diastolic blood pressure 99 mm[Hg] Guillermo Perales MD Work Phone: [facility] [employer] 08-10-2022 04:06-0400 Heart rate 92 /min Guillermo Perales MD Work Phone: [facility] [employer] 08-10-2022 04:06-0400 Respiratory rate 16 /min Guillermo Perales MD Work Phone: [facility] [employer] 08-10-2022 04:06-0400 SaO2% (BldA) [Mass fraction] 98 % Guillermo Perales MD Work Phone: [facility] [employer] 08-10-2022 04:06-0400 Systolic blood pressure 137 mm[Hg] Guillermo Perales MD Work Phone: [facility] [employer] 08-10-2022 01:29-0400 Body temperature 98.1 [degF] Guillermo Perales MD Work Phone: [facility] [employer] 07-11-2022 00:44-0400 Diastolic blood pressure 82 mm[Hg] Shaan Voll DO Work Phone: [facility] [employer] 07-11-2022 00:44-0400 Heart rate 74 /min Shaan Voll DO Work Phone: [facility] [employer] 07-11-2022 00:44-0400 Respiratory rate 18 /min Shaan Voll DO Work Phone: [facility] [employer] 07-11-2022 00:44-0400 SaO2% (BldA) [Mass fraction] 98 % Shaan Voll DO Work Phone: [facility] [employer] 07-11-2022 00:44-0400 Systolic blood pressure 134 mm[Hg] Shaan Voll DO Work Phone: [facility] [employer] 07-10-2022 22:44-0400 Body height 182.9 cm Shaan Voll DO Work Phone: [facility] [employer] 07-10-2022 22:44-0400 Body mass index (BMI) [Ratio] 31.19 kg/m2 Shaan Voll DO Work Phone: [facility] [employer] 07-10-2022 22:44-0400 Body temperature 98.01 [degF] Shaan Voll DO Work Phone: [facility] [employer] 07-10-2022 22:44-0400 Body weight 104.33 kg Shaan Voll DO Work Phone: [facility] [employer] 06-12-2022 15:19-0400 Body temperature 97.3 [degF] Neetu Jiménez Work Phone: [facility] [employer] 06-12-2022 15:19-0400 Diastolic blood pressure 101 mm[Hg] [facility] 06-12-2022 15:19-0400 Heart rate 91 /min Neetu Carvajaltz Work Phone: [employer] 06-12-2022 15:19-0400 Respiratory rate 16 /min Neetu Jiménez Work Phone: [employer] 06-12-2022 15:19-0400 SaO2% (BldA) [Mass fraction] 97 % Neetu Jiménez Work Phone: [facility] [employer] 06-12-2022 15:19-0400 Systolic blood pressure 147 mm[Hg] eNetu Carvajaltz Work Phone: [facility] [employer] 05-25-2022 20:22-0400 Body temperature 98.29 [degF] Mary Hamlin MD Work Phone: [facility] [employer] 05-25-2022 20:22-0400 Diastolic blood pressure 79 mm[Hg] Mary Hamlin MD Work Phone: [facility] [employer] 05-25-2022 20:22-0400 Heart rate 71 /min Mary Hamlin MD Work Phone: [facility] [employer] 05-25-2022 20:22-0400 Respiratory rate 18 /min Mary Hamlin MD Work Phone: [facility] [employer] 05-25-2022 20:22-0400 SaO2% (BldA) [Mass fraction] 95 % Mary Hamlin MD Work Phone: [facility] [employer] 05-25-2022 20:22-0400 Systolic blood pressure 138 mm[Hg] Mary Hamlin MD Work Phone: [facility] [employer] 05-25-2022 16:24-0400 Body height 182.9 cm Mary Hamlin MD Work Phone: [facility] [employer] 05-25-2022 16:24-0400 Body mass index (BMI) [Ratio] 31.87 kg/m2 Mary Hamlin MD Work Phone: [facility] [employer] 05-25-2022 16:24-0400 Body weight 106.59 kg Mary Hamlin MD Work Phone: [facility] [employer] 05-24-2022 06:45-0400 Diastolic blood pressure 84 mm[Hg] Mary Hamlin MD Work Phone: [facility] [employer] 05-24-2022 06:45-0400 Heart rate 67 /min Mary Hamlin MD Work Phone: [facility] [employer] 05-24-2022 06:45-0400 Respiratory rate 18 /min Mary Hamlin MD Work Phone: [facility] [employer] 05-24-2022 06:45-0400 SaO2% (BldA) [Mass fraction] 96 % Mary Hamlin MD Work Phone: [facility] [employer] 05-24-2022 06:45-0400 Systolic blood pressure 140 mm[Hg] Mary Hamlin MD Work Phone: [facility] [employer] 05-23-2022 23:17-0400 Body temperature 98.01 [degF] Mary Hamlin MD Work Phone: [facility] [employer] 05-23-2022 21:19-0400 Body height 185.4 cm Mary Hamlin MD Work Phone: [facility] [employer] 05-23-2022 21:19-0400 Body mass index (BMI) [Ratio] 31 kg/m2 Mary Hamlin MD Work Phone: [facility] 05-23-2022 21:19-0400 Body weight 106.59 kg Mary Hamlin MD Work Phone: [facility] [employer] 05-02-2022 20:29-0400 Heart rate 81 /min Neetu Jiménez Work Phone: [employer] 05-02-2022 20:29-0400 Respiratory rate 20 /min Neetu Jiménez Work Phone: [employer] 05-02-2022 20:29-0400 SaO2% (BldA) [Mass fraction] 97 % Neetu Jiménez Work Phone: [employer] 05-02-2022 18:34-0400 Body height 185.4 cm Neetu Jiménez Work Phone: [employer] 05-02-2022 18:34-0400 Body mass index (BMI) [Ratio] 31 kg/m2 Neetu Jiménez Work Phone: [employer] 05-02-2022 18:34-0400 Body weight 106.59 kg Neetu Jiménez Work Phone: [employer] 05-02-2022 18:30-0400 Diastolic blood pressure 88 mm[Hg] Neetu Jiménez Work Phone: [employer] 05-02-2022 18:30-0400 Systolic blood pressure 156 mm[Hg] Neetu Jiménez Work Phone: [employer] 05-02-2022 18:18-0400 Body temperature 97.81 [degF] Neetu Jiménez Work Phone: [employer] 03-19-2022 11:27-0500 Body temperature 98.6 [degF] Josseline Weber MD Work Phone: [employer] 03-19-2022 11:27-0500 Diastolic blood pressure 88 mm[Hg] Josseline Weber MD Work Phone: [employer] 03-19-2022 11:27-0500 Heart rate 78 /min Josseline Weber MD Work Phone: [employer] 03-19-2022 11:27-0500 SaO2% (BldA) [Mass fraction] 98 % Josseline Weber MD Work Phone: [employer] 03-19-2022 11:27-0500 Systolic blood pressure 125 mm[Hg] Josseline Weber MD Work Phone: [employer] 03-19-2022 05:57-0500 Respiratory rate 16 /min Josseline Weber MD Work Phone: [employer] 03-18-2022 17:19-0500 Body height 185.4 cm Josseline Weber MD Work Phone: [employer] 03-18-2022 17:19-0500 Body mass index (BMI) [Ratio] 31.66 kg/m2 Josseline Weber MD Work Phone: [employer] 03-18-2022 17:19-0500 Body weight 108.86 kg Josseline Weber MD Work Phone: [employer] 07-28-2019 20:18-0400 Body Temperature 97.9 [degF] Neetu Jiménez [facility] 07-28-2019 20:18-0400 BP Diastolic 95 mm[Hg] Neetu Jiménez [facility] , [place] 07-28-2019 20:18-0400 BP Systolic 141 mm[Hg] Neetu Jiménez [facility] [place] , [place] 07-28-2019 20:18-0400 Pulse (Heart Rate) 58 /min Neetu Jiménez [facility] [place], [place] 07-28-2019 20:18-0400 Pulse Oximetry 98 % Neetu Jiménez [facility] [place] , [place] 07-28-2019 20:18-0400 Respiratory Rate 16 /min [facility] [place] [place] 07-28-2019 17:51-0400 BMI (Body Mass Index) 32.32 kg/m2 Neetu [facility] [place], [place] 07-28-2019 17:51-0400 Body weight 111.13 kg [facility] , [place] Encounters Encounter Date Encounter Type Care Provider Facility Start: 12-13-2024 End: 12-13-2024 Telephone encounter Katherin Monroe MA [facility] - [place] Start: 12-08-2024 End: 12-08-2024 ambulatory TAM HUGHES [facility] Start: 12-08-2024 End: 12-08-2024 Subsequent hospital visit by physician Sonya Cramer MD Work Phone: [facility] Endoscopy Start: 12-01-2024 Non-patient / Non-visit Dr. Joe mclain [facility] Work Phone: Start: 11-30-2024 ambulatory Lázaro Olivo ty:[facility] Start: 11-30-2024 End: 12-01-2024 Evaluation and management of inpatient Joe Mcmillan Facility:[facility] Start: 11-24-2024 End: 11-24-2024 Telephone encounter Suzy Carrero MA [facility] - [place] Comment on above: Appointment Confirma tion Start: 11-15-2024 End: 11-15-2024 Patient encounter procedure Ajay Ochoa DMD Work Phone: [facility] Comment on above: Extraction of tooth needed (Primary Dx) Start: 11-15-2024 End: 11-15-2024 ambulatory AJAY OCHOA [facility] Start: 11-07-2024 End: 11-08-2024 Follow-up encounter Guillermo Mon PA-C Work Phone: [facility] [place] Comment on above: AFP Tumor Marker, He patitis A Antibody, Total, Comprehensive metabolic panel, Additional followed-up results: 2 Start: 11-01-2024 End: 11-01-2024 Telephone encounter Hattie Law [facility] Comment on above: Care Coordination Start: 11-01-2024 End: 11-01-2024 Office outpatient visit 25 minutes Guillermo Mon PA-C Work Phone: [facility] Comment on above: Alcoholic cirrhosis of liver without ascites (CMS/HCC) (HCC) (Primary Dx); Alcohol induced acute pancreatitis without necrosis or infection; Elevated liver enzymes; History of alcohol abuse; Polysubstance use disorder Alcoholic cirrhosis of liver without ascites (HCC) (Primary Dx); Alcohol induced acute pancreatitis without necrosis or infection; Elevated liver enzymes; History of alcohol abuse; Polysubstance use disorder Start: 11-01-2024 End: 11-01-2024 ambulatory [facility] Start: 10-17-2024 End: 10-18-2024 Telephone encounter Provider Dental DDS Work Phone: [facility] Start: 10-12-2024 End: 10-12-2024 ambulatory GUILLERMOJAZMÍN PEACEKiran [facility] Start: 10-04-2024 FQHC visit, estab pt Lauren Perez DDS Work Phone: [facility] Start: 10-04-2024 End: 10-04-2024 Patient encounter procedure Lauren Perez DDS Work Phone: [facility] Start: 10-04-2024 End: 10-04-2024 ambulatory [facility] Start: 2024 End: 2024 ambulatory [facility] Start: 2024 End: 10-03-2024 Follow-up encounter Guillermo Mon PA-C Work Phone: [facility] Comment on above: Fibroscan Fibroscan, Protime-I NR, Liver-Kidney Microsome 1 Ab, Additional followed-up results: 10 Start: 2024 End: 2024 [facility] Start: 08-29-2024 End: 08-31-2024 Telephone encounter Provider Dental DDS Work Phone: [facility] Start: 08-24-2024 End: 08-24-2024 Patient encounter procedure Lauren Gold Bayron DDS Work Phone: [facility] Start: 08-24-2024 End: 08-24-2024 [facility] Start: 08-23-2024 End: 08-23-2024 Office outpatient visit 25 minutes Seema Hartley APRN - [employer] Work Phone: [facility] Gastro[facility] - [facility] Comment on above: Alcohol induced acut e pancreatitis without necrosis or infection (Primary Dx); Elevated liver enzymes Start: 08-23-2024 End: 08-23-2024 ambulatory [facility] Start: 08-09-2024 End: 08-15-2024 Telephone encounter Tyree Lam DDS Work Phone: [facility] Comment on above: Reschedule Start: 07-25-2024 End: 07-25-2024 Telephone encounter Seema Hartley DIRECTOR OF AUTOMATION - [employer] Work Phone: [facility] G[facility] - [facility] Start: 07-02-2024 End: 07-02-2024 Emergency department patient visit ENIO Jacki BOYD [facility] Start: 06-26-2024 End: 06-26-2024 Emergency department patient visit Mattie Durbin DO Work Phone: [facility] ED Comment on above: Alcohol-induced acut e pancreatitis without infection or necrosis (Primary Dx) Start: 06-21-2024 End: 08-21-2024 Follow-up encounter Seema Hartley DIRECTOR OF AUTOMATION - [employer] Work Phone: [facility] Gastroenterology - Court Comment on above: MR abdomen w and wo contrast, Triglyceride, Calcium, IgG 4 Start: 06-20-2024 End: 06-20-2024 Subsequent hospital visit by physician Seema Hartley APRN - [employer] Work Phone: [facility] Comment on above: Acute on chronic leigh creatitis (CMS/HCC) (HCC) Start: 06-20-2024 End: 06-20-2024 ambulatory [facility] Start: 06-19-2024 End: 06-20-2024 Emergency department patient visit Cory Adame DO Work Phone: [facility] ED Comment on above: Epigastric abdominal pain (Primary Dx); Chronic pancreatitis, unspecified pancreatitis type (HCC) Start: 06-18-2024 End: 06-18-2024 Emergency department patient visit TAM [facility] ED Comment on above: Alcohol-induced product development intern russ pancreatitis (CMS/HCC) (HCC) (Primary Dx) Start: 06-12-2024 End: 06-13-2024 Emergency department patient visit Donald Hill DO Work Phone: [facility] [employer] [facility] Comment on above: Abdominal pain, unsp ecified abdominal location (Primary Dx); Chronic pancreatitis, unspecified pancreatitis type (HCC) Start: 06-04-2024 End: 06-04-2024 Emergency department patient visit Josseline Weber MD Work Phone: [facility] [employer] [facility] Comment on above: Alcohol-induced product development intern russ pancreatitis (CMS/HCC) (HCC) (Primary Dx); Pain of upper abdomen; Acute on chronic pancreatitis (CMS/HCC) (HCC) Start: 06-04-2024 End: 06-04-2024 Emergency department patient visit [facility] Start: 06-03-2024 End: 06-03-2024 ambulatory [facility] Start: 06-03-2024 End: 06-03-2024 Patient encounter procedure [facility] Start: 06-01-2024 End: 06-01-2024 Office outpatient visit 25 minutes Seema Hartley APRN - [employer] Work Phone: [facility] Gastroenterology [facility] Comment on above: Acute on chronic leigh creatitis (CMS/HCC) (HCC) (Primary Dx); History of alcohol abuse; Polysubstance use disorder Start: 06-01-2024 End: 06-01-2024 ambulatory TAM [facility] Start: 05-30-2024 End: 05-31-2024 Emergency department patient visit Mattie Durbin DO Work Phone: [facility] Emergency Dept Comment on above: Acute on chronic leigh creatitis (CMS/HCC) (HCC) (Primary Dx) Start: 05-22-2024 End: 05-22-2024 Emergency department patient visit TAM HUGHES [facility] ED Comment on above: Alcohol-induced product development intern russ pancreatitis (CMS/HCC) (HCC) (Primary Dx); Abdominal pain, generalized Start: 05-21-2024 End: 05-21-2024 Telephone encounter Roma Mckenzie RN [facility] EMERGENCY DEPT Start: 05-21-2024 End: 05-21-2024 Emergency department patient visit BALJINDER DUNLAP Facility:[facility] Start: 05-14-2024 End: 05-16-2024 Telephone encounter Baljinder James RN [facility] EMERGENCY DEPT Start: 05-07-2024 End: 05-07-2024 Emergency department patient visit Markie Lyons DO Work Phone: [facility] Emergency Dept Comment on above: Alcohol-induced acut e pancreatitis without infection or necrosis (Primary Dx) Start: 04-26-2024 End: 04-26-2024 Telephone encounter Roma Mckenzie RN [facility] EMERGENCY DEPT Start: 04-21-2024 End: 04-23-2024 Telephone encounter Seema Sumner [facility] Clinical Communication Comment on above: Hospital Follow-up Start: 04-16-2024 End: 04-20-2024 Evaluation and management of inpatient Nancy Chávez Jerad DO Work Phone: [facility] Respiratory Unit 7W Comment on above: Acute recurrent panc reatitis (Primary Dx) Start: 04-04-2024 End: 04-06-2024 ambulatory PAULINO [facility] Start: 04-04-2024 End: 04-06-2024 Emergency department patient visit Enio Boyd DO Work Phone: [facility] Medical Surgical Unit MSU 4S Comment on above: Alcohol-induced acut e pancreatitis, unspecified complication status (Primary Dx); Alcohol withdrawal syndrome without complication (HCC); Pancreatitis, unspecified pancreatitis type Start: 03-30-2024 End: 03-30-2024 ambulatory TAM SAUL [facility] Start: 03-30-2024 End: 03-30-2024 Telemedicine consultation with patient Nikky Escobar MD Work Phone: [facility] [employer] [facility] [employer] Comment on above: Severe alcohol use d isorder (HCC); Major depressive disorder, recurrent episode, moderate (HCC); RODRIGUEZ (generalized anxiety disorder); Tourette syndrome Start: 03-29-2024 End: 03-31-2024 Telephone encounter Nikky Escobar MD Work Phone: [facility] [employer] [facility] [employer] Comment on above: Appointment Request Start: 03-22-2024 End: 03-22-2024 Emergency department patient visit TAM SAUL [facility] ED Comment on above: Pain of upper abdome n (Primary Dx); Transaminitis; Alcohol-induced chronic pancreatitis (CMS/HCC) (HCC); Alcohol use disorder Start: 02-20-2024 End: 02-20-2024 Telephone encounter Roma Mckenzie RN [facility] EMERGENCY DEPT Start: 02-17-2024 End: 08-03-2024 Refill Nikky Escobar MD Work Phone: [facility] [employer] [facility] [employer] Start: 02-04-2024 End: 02-08-2024 Evaluation and management of inpatient Francisco Landa MD Work Phone: [facility] Detox Unit 4E Comment on above: Alcohol withdrawal s yndrome without complication (HCC) (Primary Dx) Start: 01-29-2024 End: 01-29-2024 Telephone encounter Roma Mckenzie RN [facility] EMERGENCY DEPT Start: 01-20-2024 End: 01-26-2024 Evaluation and management of inpatient Calvin Stephens MD Work Phone: [facility] Medical Surgical Unit MSU H5 Comment on above: Alcohol-induced acut e pancreatitis, unspecified complication status (Primary Dx); Abdominal pain, generalized Start: 01-08-2024 End: 01-08-2024 Emergency department patient visit Gracy Del GONZALEZ Work Phone: [facility] ED Comment on above: Abdominal pain, epig astric (Primary Dx); Acute pancreatitis, unspecified complication status, unspecified pancreatitis type Start: 12-22-2023 End: 12-22-2023 Emergency department patient visit TAM HUGHES Facility:[facility] Start: 12-13-2023 End: 12-17-2023 Evaluation and management of inpatient Idris Danielson MD Work Phone: [facility] Epilepsy Monitoring Unit 3N Comment on above: Alcoholic intoxicati on without complication (CMS/HCC) (HCC) (Primary Dx); Hematemesis of unknown etiology; Other depression Start: 11-30-2023 End: 12-01-2023 Telephone encounter Seema Sumner [facility] Clinical Communication Comment on above: Hospital Follow-up Start: 11-17-2023 End: 11-28-2023 Evaluation and management of inpatient J Lisset Jett MD Work Phone: [facility] Cardiac Progressive Care Unit PCU 2E Start: 11-04-2023 End: 11-04-2023 Telemedicine consultation with patient Nikky Escobar MD Work Phone: [employer] Comment on above: Severe alcohol use d isorder (HCC); Major depressive disorder, recurrent episode, moderate (HCC); RODRIGUEZ (generalized anxiety disorder); Tourette syndrome Start: 10-21-2023 End: 10-21-2023 Patient encounter procedure Nikky Escobar MD Work Phone: [employer] Comment on above: Severe opioid use di sorder (HCC); Severe alcohol use disorder (HCC); Other long-term (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 Start: 10-16-2023 End: 10-18-2023 Evaluation and management of inpatient Francisco Zee MD Work Phone: [facility] [employer] Adapt[employer] Unit AAU 2 Comment on above: Acute recurrent panc reatitis (Primary Dx) Start: 10-16-2023 End: 10-16-2023 Emergency department patient visit Idris Danielson MD Work Phone: [facility] Emergency Dept Comment on above: Alcohol-induced acut e pancreatitis, unspecified complication status (Primary Dx) Start: 10-14-2023 End: 10-14-2023 Patient encounter procedure Nikky Escobar MD Work Phone: [facility] [email or web address] Comment on above: Severe opioid use di sorder (HCC); Severe alcohol use disorder (HCC); Major depressive disorder, recurrent episode, moderate (HCC); RODRIGUEZ (generalized anxiety disorder); Tourette syndrome Start: 10-07-2023 End: 10-07-2023 Telephone encounter Nikky Escobar MD Work Phone: [facility] [email or web address] Comment on above: Appointment (Pt woul d like to reschedule the appointment that is scheduled for 10/07/2023 at 2:30 pm.) Start: 10-01-2023 End: 11-12-2023 Telephone encounter Nikky Escobar MD Work Phone: [facility] [employer] [facility] [place] Comment on above: Medication Problem Start: 10-01-2023 End: 10-01-2023 Emergency department patient visit Bhupinder Boyd MD Work Phone: [facility] ED Comment on above: Alcohol-induced acut e pancreatitis, unspecified complication status (Primary Dx) Start: 09-23-2023 End: 09-23-2023 Office outpatient visit 15 minutes Nikky Escobar MD Work Phone: [facility] [email or web address] Comment on above: Severe opioid use di sorder (HCC); Motor tic disorder Start: 09-18-2023 End: 09-18-2023 ambulatory Sol Guo RN [facility] Clinical Communication Start: 09-18-2023 End: 09-18-2023 Patient encounter procedure Sol Guo RN [facility] Clinical Communication Start: 09-16-2023 End: 09-16-2023 Office outpatient visit 25 minutes Nikky Escobar MD Work Phone: [facility] [email or web address] Comment on above: Severe opioid use di sorder (HCC); Motor tic disorder; Major depressive disorder, recurrent episode, moderate (HCC); RODRIGUEZ (generalized anxiety disorder); Severe alcohol use disorder (HCC) Start: 09-09-2023 End: 09-09-2023 Patient encounter procedure Nikky Escobar MD Work Phone: [facility] [employer] [facility] Comment on above: Opioid withdrawal (H CC); Severe alcohol use disorder (HCC); Major depressive disorder, recurrent episode, moderate (HCC); RODRIGUEZ (generalized anxiety disorder); Motor tic disorder Start: 09-02-2023 End: 09-02-2023 Patient encounter procedure Nikky Escobar MD Work Phone: [facility] Comment on above: Severe opioid use di sorder (HCC); Major depressive disorder, recurrent episode, moderate (HCC); RODRIGUEZ (generalized anxiety disorder); Motor tic disorder Start: 08-26-2023 End: 08-26-2023 Telemedicine consultation with patient Nikky Escobar MD Work Phone: [facility] Comment on above: Anxiety; Palpitations; Opioid withdrawal (HCC) Start: 08-19-2023 End: 08-19-2023 Patient encounter procedure Nikky Escobar MD Work Phone: [facility] [place] Comment on above: Severe opioid use di sorder (HCC); Motor tic disorder; RODRIGUEZ (generalized anxiety disorder); Major depressive disorder, recurrent episode, moderate (HCC) Start: 08-10-2023 End: 08-15-2023 Evaluation and management of inpatient Jossy Lynn MD Work Phone: [facility] Detox Unit 4E Comment on above: Alcohol withdrawal s yndrome without complication (HCC) (Primary Dx); Transaminitis; Alcohol abuse; Opioid withdrawal (HCC); Tourette syndrome Start: 07-25-2023 End: 07-29-2023 Refill Thiago Hilton DO Work Phone: [facility] [employer] Comment on above: Opioid withdrawal (H CC) Start: 07-17-2023 Orders Only Thiago Hilton DO Work Phone: [facility] [employer] Comment on above: Opioid withdrawal (H CC) Start: 07-16-2023 Telephone encounter Thiago salinas DO Work Phone: [facility] [employer] [facility] Comment on above: Med Refill (07/16/23 Pt calling for a refill medication pt is scheduled for appt on 07.22.23 buprenorphine-naloxone (Suboxone) 8-2 MG per sublingual film [id number] - [place], [place] - [address] [facility]) Start: 06-24-2023 End: 06-28-2023 Evaluation and management of inpatient Jossy Lynn MD Work Phone: [facility] Cardiac Post Intervention Progressive Care Unit CPI PCU 4W Comment on above: Opioid withdrawal (H CC) (Primary Dx); Alcohol use disorder; Hypoxia; Transaminitis; Anxiety Start: 06-15-2023 Telephone encounter Thiago salinas DO Work Phone: [facility] [employer] [facility] Comment on above: Appointment Request (/); Med Refill Start: 04-29-2023 End: 04-29-2023 Office outpatient visit 15 minutes Thiago M Lida 3LM Work Phone: [facility] Comment on above: Severe opioid use di sorder (HCC) Start: 03-18-2023 End: 03-18-2023 Office outpatient visit 15 minutes Thiago M Lida DO Work Phone: [facility] Comment on above: Severe opioid use di sorder (HCC) (Primary Dx); Palpitations Start: 03-01-2023 Refill Thiago Royal Hilton DO Work Phone: [facility] Comment on above: Opioid use disorder, severe, on maintenance therapy (HCC) (Primary Dx) Start: 01-08-2023 Orders Only Erin Arce MD Work Phone: [facility] Infectious Disease Comment on above: Encounter for testin g for latent tuberculosis (Primary Dx) Start: 01-07-2023 End: 01-07-2023 Office outpatient new 60 minutes Erin Arce MD Work Phone: [facility] Infectious Disease Comment on above: 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); Polysubstance use disorder; Panic disorder; Alcohol abuse; Tourette syndrome; SVT (supraventricular tachycardia); History of pancreatitis Start: 12-16-2022 End: 12-16-2022 Emergency department patient visit Duong Milian MD Work Phone: [facility] EMERGENCY DEPT Comment on above: 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) Start: 12-10-2022 End: 12-10-2022 Office outpatient visit 15 minutes Thiago M Lida DO Work Phone: [facility] Comment on above: Gastroesophageal ref lux disease without esophagitis (Primary Dx); Anxiety; Alcohol-induced insomnia (CMS/HCC) (HCC); Severe opioid use disorder (HCC) Start: 11-20-2022 End: 11-20-2022 ambulatory [facility] Facility:[facility] Start: 11-15-2022 ambulatory [facility]uliya Ford [facility] Start: 11-15-2022 Patient encounter procedure [facility] Ford [facility] Start: 11-14-2022 Telephone encounter Thiago M Jese salinas DO Work Phone: [facility] [employer] [facility] Comment on above: Med Change Request Start: 11-12-2022 End: 11-12-2022 Office outpatient visit 15 minutes Thiago Hilton DO Work Phone: [facility] Behavioral [facility] Comment on above: Severe opioid use di sorder (HCC) (Primary Dx); Alcohol-induced insomnia (CMS/HCC) (HCC); Mild intermittent asthma without complication; Anxiety; Tourette syndrome; Severe alcohol use disorder (HCC); Encounter for smoking cessation counseling; Nausea Start: 11-03-2022 End: 11-08-2022 Evaluation and management of inpatient Bhupinder Boyd MD Work Phone: [facility] 4E DETOX Comment on above: Alcohol withdrawal s yndrome without complication (HCC) (Primary Dx); Polysubstance abuse (CMS/HCC) (HCC); Opioid use disorder Start: 08-10-2022 End: 08-10-2022 Emergency department patient visit Guillermo Perales MD Work Phone: [facility] ED Comment on above: Sprain of left knee, initial encounter (Primary Dx); Closed head injury, initial encounter Start: 07-10-2022 End: 07-11-2022 Evaluation and management of inpatient Shaan Ortiz DO Work Phone: [facility] Emergency Dept Comment on above: Alcohol abuse (Prima ry Dx) Start: 06-12-2022 End: 06-12-2022 Emergency department patient visit Neetu Jiménez Work Phone: [facility] ED Comment on above: Acute gout of left f oot, unspecified cause (Primary Dx) Start: 05-25-2022 End: 05-25-2022 Emergency department patient visit Mary Hamlin MD Work Phone: [facility] EMERGENCY DEPT Comment on above: Anxiety (Primary Dx) Start: 05-23-2022 End: 05-24-2022 Emergency department patient visit Mary Hamlin MD Work Phone: [facility] ED Comment on above: Suicide attempt (HCC ) (Primary Dx) Start: 05-02-2022 End: 05-02-2022 Emergency department patient visit Neetu Jiménez Work Phone: [facility] ED Comment on above: Chest pain, unspecif ied type (Primary Dx); Anxiety attack Start: 03-15-2022 End: 03-19-2022 Evaluation and management of inpatient Josseline Weber MD Work Phone: [facility] 4E DETOX Comment on above: Alcohol withdrawal w ith inpatient treatment, uncomplicated (HCC) (Primary Dx) Start: 07-28-2019 End: 07-28-2019 Emergency department patient [facility] Comment on above: Dysuria (Primary Dx) Start: 06-06-2018 End: 06-08-2018 Evaluation and management of inpatient NEETU JIMÉNEZ [facility] Start: 06-02-2018 End: 06-03-2018 Patient encounter procedure PAOLA GALICIA [facility] Start: 03-29-2018 End: 03-30-2018 Evaluation and management of inpatient NEETU [facility] Start: 03-28-2018 End: 03-28-2018 Emergency department patient visit NEETU A [facility] Start: 03-13-2018 End: 03-13-2018 Emergency department patient visit NEETU [facility] Start: 10-27-2017 Ambulatory [facility] Facility: [facility] Start: 04-16-2017 End: 04-16-2017 Ambulatory [facility] Facility:[facility] Start: 10-03-2016 End: 10-04-2016 Ambulatory [facility] Facility:[facility] Procedures Date Procedure Procedure [...] Start: 2024 Assay of ferritin Spring Hartley DIRECTOR OF AUTOMATION - [employer] Work Phone: Start: 2024 Hepatitis b surf ant ibody hbsab Seema Hartley DIRECTOR OF AUTOMATION [employer] Work Phone: Start: 2024 Iaad ia hepatitis b surface antigen Seema Hartley APRN - [employer] Work Phone: Start: 08-24-2024 extraction, erupted tooth or exposed root (elevation and/or forceps removal) Lauren Alla Bayron [employer] Work Phone: Start: 08-24-2024 Follow-up visit AJAY OCHOA Start: 08-24-2024 intraoral - periapic al first radiographic image Lauren K Bayron [employer] Work Phone: Start: 08-24-2024 panoramic radiograph ic image Lauren K Bayron [employer] Work Phone: Start: 08-23-2024 Follow-up visit AJAY [...] 06-12-2024 Drug test def 1-7 classes Donald Crawfrod Elisha DO Work Phone: Start: 06-04-2024 Basic [...] instr mnt chem analyzers pr date Paulino Shelton MD Work Phone: Start: 04-04-2024 ETHYL GLUCURONIDE [...] 03-22-2024 Comprehensive metabo lic panel Blayne Duran DIRECTOR OF AUTOMATION - [employer] Work Phone: Start: 02-05-2024 Basic metabolic pane l calcium total Israel J Radha DO Work Phone: Start: 02-04-2024 Basic metabolic pane l calcium total Beatris Argueta PA-C Work Phone: Start: 02-04-2024 [...] ETHYL GLUCURONIDE SC REEN, URINE Britney Spencehoa DIRECTOR OF AUTOMATION - [employer] Work Phone: Start: 01-21-2024 MEDICATION ASSISTED TREATMENT PANEL Britney Spencehoa DIRECTOR OF AUT[employer]ATION [employer] Work Phone: Start: 01-21-2024 Basic metabolic pane l calcium total Latonya Larose MD Work Phone: Start: 01-21-2024 Drug test def 1-7 classes Britney Spencehoa DIRECTOR OF [employer]ATION [employer] Work Phone: Start: 01-20-2024 Ct abdomen & [...] in Respiratory specimen by Rapid immunoassay Yvette eJtt MD Work Phone: Start: 11-17-2023 Comprehensive metabo [...] complete panel - Urine Tana [employer] Work Phone: Start: 08-11-2023 Urnls dip stick/tabl et rgnt auto w/o microscopy Tana Christensen PA-C Work Phone: Start: 08-10-2023 Blood gases any combination ph pco2 po2 co2 hco3 Kev Tinojeremiah [employer] Work Phone: Start: 08-10-2023 SARS-CoV-2 (COVID-19 ) Ag [Presence] in Respiratory specimen by Rapid immunoassay Tana [employer] Work Phone: Start: 08-10-2023 Comprehensive metabo lic [...] Start: 06-24-2023 BUPRENORPHINE SCREEN Ri ryanne Perea DIRECTOR OF AUTOMATION [employer] Work Phone: Start: 06-24-2023 SARS-CoV-2 (COVID-19 ) [...] w/h iv-1 & hiv-2 antbdy single Thiago Hilton DO Work Phone: Start: 11-04-2022 Drug test [...] metabolic pane l calcium total Blayne Duran DIRECTOR OF AUTOMATION [employer] Work Phone: Start: 05-02-2022 Radiologic exam ches t 2 views Blayne Duran DIRECTOR OF [employer] Work Phone: Start: 05-02-2022 Ecg routine ecg w/le ast 12 lds trcg only w/o i&r Blayne Duran DIRECTOR OF [employer]ATION [employer] Work Phone: Start: 03-18-2022 Comprehensive metabo lic [...] LEYVA Start: 06-08-2018 INTAKE AND OUTPUT NEETU JIMÉNEZ Start: 06-07-2018 INITIATE OXYGEN THER APY PROTOCOL NEETU JIMÉNEZ Start: 06-07-2018 Assay of lipase NEETU LEYVA Start: 06-07-2018 Blood count complete auto&auto difrntl wbc NEETU JIMÉNEZ Start: 06-07-2018 Blood count complete automated NEETU JIMÉNEZ Start: 06-07-2018 Lipid panel NEETU Alaniz Start: 06-07-2018 INTAKE AND OUTPUT NEETU JIMÉNEZ Start: 06-06-2018 FULL CODE NEETU Alaniz Start: 06-06-2018 INITIATE OXYGEN THER APY PROTOCOL NETEU JIMÉNEZ Start: 06-06-2018 INTAKE AND OUTPUT NEETU [...] NEETU TINO Start: 06-06-2018 IP CONSULT TO DELIVERY DRIVER/SUPERVISOR AL MEDICINE NEETU TINO Start: 06-06-2018 Ct [...] for Adults (1 - 1-dose 75+ series) [facility] Start: 2046 RSV Immunization aged 60 or older (1 - 1-dose 60+ series) RSV Immunization aged 60 or older (1 - 1-dose 60+ series) [facility] Start: 2046 [facility] Start: 2036 Zoster Vaccines (1 of 2) Zoster Vaccines (1 of 2) [facility] Start: 2036 [facility] Start: 08-10-2032 DTaP/Tdap/Td Vaccines (3 - Td or Tdap) DTaP/Tdap/Td Vaccines (3 - Td or Tdap) [facility] Start: 08-10-2032 [facility] Start: 10-21-2028 Lipid panel [facility] Start: 04-07-2025 Dental Oral Exam Dental Oral Exam [facility] Start: 01-19-2025 End: 01-19-2025 Patient encounter procedure 01/19/2025 2:00 PM EST Office Visit [facility] [address] [place] [phone] James Mcneill, MAURO [address] [place] [address] [facility] Start: 12-14-2024 End: 12-14-2024 Patient encounter procedure 12/14/2024 1:00 PM EST Office Visit [facility] [address] [place] [phone] Lauren Perez, DDS [address] [place] [address] [facility] Start: 12-08-2024 End: 12-08-2024 Admission to same day surgery center 12/08/2024 1:15 PM EDT - 12/08/2024 1:45 PM EDT Surgery [facility] [address] [place] [phone] Sonya Cramer MD [address] [place] [address] ESOPHAGOGASTRODUODENOSCO PY, WITH BIOPSY [29952 (CPT )] [facility] Comment on above: ESOPHAGOGASTRODUODENOSCOPY, WITH BIOPSY [64766 (CPT )] Start: 12-08-2024 Subsequent hospital visit by physician 12/08/2024 1:15 PM EDT Hospital Encounter [facility] [address] [place] [phone] Sonya Cramer MD [address] [place] [address] [facility] Start: 12-08-2024 End: 12-08-2024 Egd transoral biopsy single/multiple [facility] Start: 12-01-2024 Patient discharge [facility] Start: 11-30-2024 Following clinical pathway protocol [facility] Start: 11-30-2024 Admission procedure [facility] Start: 11-30-2024 Patient referral to dietitian [facility] Start: 11-30-2024 [facility] Start: 11-21-2024 End: 11-21-2024 Patient encounter procedure 11/21/2024 2:30 PM EDT Office Visit [facility] [address] [place] [phone] Guillermo Mon PA-C [address] [address] [facility] Start: 11-15-2024 End: 11-15-2024 Patient encounter procedure [facility] Start: 11-10-2024 End: 11-10-2025 Hepatitis A virus IgM Ab [Presence] in Serum or Plasma by Immunoassay Hepatitis A antibody, IgM Lab Routine Elevated liver enzymes Expected: 11/10/2024 (Approximate), Expires: 11/10/2025 [facility] [employer] Work Phone: Comment on above: Expected: 11/10/2024 (Approximate), Expi res: 11/10/2025 Start: 11-01-2024 End: 11-01-2025 AFP Tumor Marker AFP Tumor Marker Lab Routine Alcoholic cirrhosis of liver without ascites (CMS/HCC) (HCC) Expected: 11/01/2024 (Approximate), Expires: 11/01/2025 [facility] Work Phone: Comment on above: Expected: 11/01/2024 (Approximate), Expi res: 11/01/2025 Start: 11-01-2024 End: 11-01-2025 Ceruloplasmin Ceruloplasmin Lab Routine Elevated liver enzymes Expected: 11/01/2024 (Approximate), Expires: 11/01/2025 [facility] [employer] Comment on above: Expected: 11/01/2024 (Approximate), Expi res: 11/01/2025 Start: 11-01-2024 End: 11-01-2025 Comprehensive metabolic 1998 panel - Serum or Plasma Comprehensive metabolic panel Lab Routine Alcoholic cirrhosis of liver without ascites (CMS/HCC) (HCC) Expected: 11/01/2024 (Approximate), Expires: 11/01/2025 [facility] [employer] Comment on above: Expected: 11/01/2024 (Approximate), Expi res: 11/01/2025 Start: 11-01-2024 End: 11-01-2025 Hepatitis A Antibody, Total Hepatitis A Antibody, Total Lab Routine Alcoholic cirrhosis of liver without ascites (CMS/HCC) (HCC) Expected: 11/01/2024 (Approximate), Expires: 11/01/2025 [facility] Comment on above: Expected: 11/01/2024 (Approximate), Expi res: 11/01/2025 Start: 11-01-2024 End: 11-01-2025 Prothrombin time (PT) in Blood by Coagulation assay Protime-INR Lab Routine Alcoholic cirrhosis of liver without ascites (CMS/HCC) (HCC) Expected: 11/01/2024 (Approximate), Expires: 11/01/2025 [facility] Comment on above: Expected: 11/01/2024 (Approximate), Expi res: 11/01/2025 Start: 11-01-2024 End: 11-01-2024 Patient encounter procedure 11/01/2024 9:00 AM EDT Office Visit [facility] [address] [place] [phone] Guillermo Mon PA-C [address] [place] [phone] [facility] Start: 10-10-2024 COVID-19 Vaccine ( season) COVID-19 Vaccine ( season) [facility] Start: 10-10-2024 Influenza vaccination [facility] Start: 10-05-2024 End: 10-05-2024 Patient encounter procedure 10/05/2024 2:00 PM EDT Office Visit [facility] [address] [place] [phone] Seema Hartley, DIRECTOR OF AUTOMATION [employer] [address] [facility] [address] [place] [phone] [facility] Start: 10-04-2024 End: 10-04-2024 Patient encounter procedure 10/04/2024 4:00 PM EDT Office Visit [facility] [address] [place] [phone] Lauren Perez, DDS [address] [place] [address] [facility] Start: 10-03-2024 End: 10-03-2025 Comprehensive metabolic 1998 panel - Serum or Plasma Comprehensive metabolic panel Lab Routine Elevated liver enzymes Expected: 10/03/2024 (Approximate), Expires: 10/03/2025 [facility] Work Phone: Comment on above: Expected: 10/03/2024 (Approximate), Expi res: 10/03/2025 Start: 09-22-2024 End: 09-22-2024 Clinical Support 09/22/2024 2:30 PM EDT Clinical Support [facility] Infectious Disease - [place] [address] [place] [phone] [facility] Infect[facility] - [place] Start: 09-07-2024 End: 09-07-2024 Patient encounter procedure 09/07/2024 2:00 PM EDT Office Visit [facility] [address] [place] [phone] Luaren Perez, DDS [address] [place] [address] [facility] Start: 08-24-2024 End: 08-24-[address] [facility] Start: 08-23-2024 End: 08-23-2025 [id number], Quantitative Sqhsz-8-Iovsxlbqnuk, Quantitative Lab Routine Elevated liver enzymes Expected: 08/23/2024 (Approximate), Expires: 08/23/2025 [facility] Comment on above: Expected: 08/23/2024 (Approximate), Expi res: 08/23/2025 Start: 08-23-2024 End: 08-23-2025 Antimitochondrial antibody Antimitochondrial antibody Lab Routine Elevated liver enzymes Expected: 08/23/2024 (Approximate), Expires: 08/23/2025 [facility] Work Phone: Comment on above: Expected: 08/23/2024 (Approximate), Expi res: 08/23/2025 Start: 08-23-2024 End: 08-23-2025 CELIAC PANEL Celiac Panel Lab Routine Elevated liver enzymes Expected: 08/23/2024 (Approximate), Expires: 08/23/2025 [facility] Comment on above: Expected: 08/23/2024 (Approximate), Expi res: 08/23/2025 Start: 08-23-2024 End: 08-23-2025 Ferritin [Mass/volume] in Serum or Plasma Ferritin Lab Routine Elevated liver enzymes Expected: 08/23/2024 (Approximate), Expires: 08/23/2025 [facility] Comment on above: Expected: 08/23/2024 (Approximate), Expi res: 08/23/2025 Start: 08-23-2024 End: 08-23-2025 Hepatitis B Core Antibody, Total Hepatitis B Core Antibody, Total Lab Routine Elevated liver enzymes Expected: 08/23/2024 (Approximate), Expires: 08/23/2025 [facility] Comment on above: Expected: 08/23/2024 (Approximate), Expi res: 08/23/2025 Start: 08-23-2024 End: 08-23-2025 Hepatitis B virus surface Ab [Units/volume] in Serum or Plasma by Immunoassay Hepatitis B surface antibody Lab Routine Elevated liver enzymes Expected: 08/23/2024 (Approximate), Expires: 08/23/2025 [facility] Comment on above: Expected: 08/23/2024 (Approximate), Expi res: 08/23/2025 Start: 08-23-2024 End: 08-23-2025 Hepatitis B virus surface Ag [Presence] in Serum or Plasma by Immunoassay Hepatitis B surface antigen Lab Routine Elevated liver enzymes Expected: 08/23/2024 (Approximate), Expires: 08/23/2025 [facility] Comment on above: Expected: 08/23/2024 (Approximate), Expi res: 08/23/2025 Start: 08-23-2024 End: 08-23-2025 Hepatitis C virus Ab [Presence] in Serum or Plasma by Immunoassay Hepatitis C antibody Lab Routine Elevated liver enzymes Expected: 08/23/2024 (Approximate), Expires: 08/23/2025 [facility] Comment on above: Expected: 08/23/2024 (Approximate), Expi res: 08/23/2025 Start: 08-23-2024 End: 08-23-2025 Liver elastography w/o imag w/i&r Fibroscan Procedures Routine Elevated liver enzymes Expected: 08/23/2024, Expires: 08/23/2025 [facility] [employer] Comment on above: Expected: 08/23/2024, Expires: Start: 08-23-2024 End: 08-23-2025 Liver-Kidney Microsome 1 Ab Liver-Kidney Microsome 1 Ab Lab Routine Elevated liver enzymes Expected: 08/23/2024 (Approximate), Expires: 08/23/2025 [facility] [employer] Comment on above: Expected: 08/23/2024 (Approximate), Expi res: 08/23/2025 Start: 08-23-2024 End: 08-23-2025 Nuclear Ab [Titer] in Serum by Immunofluorescence [place] Lab Routine Elevated liver enzymes Expected: 08/23/2024 (Approximate), Expires: 08/23/2025 [facility] [employer] Comment on above: Expected: 08/23/2024 (Approximate), Expi res: 08/23/2025 Start: 08-23-2024 End: 08-23-2025 Prothrombin time (PT) in Blood by Coagulation assay Protime-INR Lab Routine Elevated liver enzymes Expected: 08/23/2024 (Approximate), Expires: 08/23/2025 [facility] [employer] Comment on above: Expected: 08/23/2024 (Approximate), Expi res: 08/23/2025 Start: 08-23-2024 End: 08-23-2025 Smooth muscle antibody with reflex Titer Smooth muscle antibody with reflex Titer Lab Routine Elevated liver enzymes Expected: 08/23/2024 (Approximate), Expires: 08/23/2025 [facility] [employer] Comment on above: Expected: 08/23/2024 (Approximate), Expi res: 08/23/2025 Start: 08-09-2024 End: 08-09-2024 Patient encounter procedure 08/09/2024 10:30 AM EDT Office Visit [facility] [address] [place] [phone] [facility] Start: 08-05-2024 Depression Monitoring Depression Monitoring [facility] Start: 07-25-2024 End: 07-25-2024 Patient encounter procedure 07/25/2024 2:30 PM EDT Office Visit [facility] Gastroenterology - [place] [address] [place] [address] Seema Hartley, DIRECTOR OF AUTOMATION - [employer] [address] [place] [address] [facility] - [place] Start: 06-24-2024 Diabetes mellitus screening [facility] Start: 06-20-2024 End: 06-20-2024 Patient encounter procedure 06/20/2024 1:45 PM EDT Appointment [facility] [address] [place] [phone] Seema Hartley, DIRECTOR OF AUTOMATION - [employer] [address] [place] [address] [facility] Start: 06-20-2024 Subsequent hospital visit by physician 06/20/2024 1:45 PM EDT Hospital Encounter [facility] [address] [place] [phone] Seema Hartley, DIRECTOR OF AUTOMATION - [employer] [address] [place] [address] [facility] Start: 06-12-2024 Depression Monitoring Depression Monitoring [facility] Start: 06-01-2024 End: 06-01-2025 Calcium [Mass/volume] in Serum or Plasma Calcium Lab Routine Acute on chronic pancreatitis (CMS/HCC) (HCC) Expected: 06/01/2024 (Approximate), Expires: 06/01/2025 [facility] Comment on above: Expected: 06/01/2024 (Approximate), Expi res: 06/01/2025 Start: 06-01-2024 End: 06-01-2025 IgG 4 IgG 4 Lab Routine Acute on chronic pancreatitis (CMS/HCC) (HCC) Expected: 06/01/2024 (Approximate), Expires: 06/01/2025 [facility] Work Phone: Comment on above: Expected: 06/01/2024 (Approximate), Expi res: 06/01/2025 Start: 06-01-2024 End: 06-01-2025 MR Abdomen WO and W contrast IV MR abdomen w and wo contrast Imaging Routine Acute on chronic pancreatitis (CMS/HCC) (HCC) Expected: 06/01/2024, Expires: 06/01/2025 [facility] Comment on above: Expected: 06/01/2024, Expires: Start: 06-01-2024 End: 06-01-2025 Triglyceride [Mass/volume] in Serum or Plasma Triglyceride Lab Routine Acute on chronic pancreatitis (CMS/HCC) (HCC) Expected: 06/01/2024 (Approximate), Expires: 06/01/2025 [facility] Comment on above: Expected: 06/01/2024 (Approximate), Expi res: 06/01/2025 Start: 04-27-2024 End: 04-27-2024 Patient encounter procedure 04/27/2024 1:30 PM EDT Office Visit [facility] Behavioral Health - [place] [address] [place] [address] Nikky Escobar MD [address] [place], [place] [phone] [facility] [place] Start: 04-04-2024 End: 04-04-2024 Patient encounter procedure 04/04/2024 3:00 PM EST Office Visit [facility] [address] [place] [phone] [facility] Start: 02-11-2024 Depression Monitoring Depression Monitoring [facility] Start: 02-11-2024 [facility] [facility] Start: 12-27-2023 Depression Monitoring Depression Monitoring [facility] Start: 12-16-2023 End: 12-16-2023 ambulatory [facility] [place] Start: 12-16-2023 End: 12-16-2023 Patient encounter procedure 12/16/2023 3:00 PM EST Office Visit [facility] [place] [address] [place] [address] Nikky Escobar MD [address] [place] [address] [facility] [place] Start: 12-02-2023 End: 12-02-2023 Patient encounter procedure 12/02/2023 1:30 PM EDT Office Visit [facility] [place] [address] [place] [address] Nikky Escobar MD [address] [place] [address] [facility] [place] Start: 11-25-2023 End: 11-25-2023 Patient encounter procedure 11/25/2023 1:00 PM EDT Office Visit [facility] [place] [address] [place] [phone] Nikky Escobar MD [address] [place] [address] [facility] [place] Start: 11-18-2023 End: 11-18-2023 Patient encounter procedure 11/18/2023 1:00 PM EDT Office Visit [facility] [place] [address] [place] [address] Nikyk Escobar MD [address] [place] [address] [facility] [place] Start: 10-21-2023 End: 10-21-2023 Patient encounter procedure 10/21/2023 3:00 PM EDT Office Visit [facility] [address] [place] [address] Nikky Escobar MD [address] [place] [address] [facility] Start: 10-14-2023 End: 10-14-2023 Patient encounter procedure 10/14/2023 2:30 PM EDT Office Visit [facility] [address] [place] [phone] Nikky Escobar MD [address] [place] [address] [facility] Start: 10-11-2023 COVID-19 Vaccine () COVID-19 Vaccine () [facility] Start: 10-11-2023 COVID-19 Vaccine () COVID-19 Vaccine () [facility] Start: 10-11-2023 Influenza vaccination [facility] Start: 10-11-2023 [facility] Start: 10-07-2023 End: 10-07-2023 Patient encounter procedure 10/07/2023 2:30 PM EDT Office Visit [place] [address] [place] [phone] Nikky Escobar MD [address] [place] [address] [facility] Start: 09-23-2023 End: 09-23-2023 Patient encounter procedure 09/23/2023 2:30 PM EDT Office Visit [facility] [address] [place] [phone] Nikky Escobar MD [address] [place] [address] [facility] Start: 09-16-2023 End: 09-16-2023 Patient encounter procedure 09/16/2023 2:30 PM EDT Office Visit [facility] [address] [place] [phone] Nikky Escobar MD [address] [place] [address] [facility] Start: 09-16-2023 End: 09-15-2024 MEDICATION ASSISTED TREATMENT PANEL MEDICATION ASSISTED TREATMENT PANEL Lab Routine Severe opioid use disorder (HCC) Expected: 09/16/2023 (Approximate), Expires: 09/15/2024 [facility] Work Phone: Comment on above: Expected: 09/16/2023 (Approximate), Expi res: 09/15/2024 Start: 09-09-2023 End: 09-09-2023 Patient encounter procedure 09/09/2023 2:30 PM EDT Office Visit [facility] [address] [place] [address] Nikky Escobar MD [address] [place], [place] [id number] [facility] Start: 09-09-2023 End: 09-08-2024 CBC panel - Blood by Automated count CBC Lab Routine Severe alcohol use disorder (HCC) Expected: 09/09/2023 (Approximate), Expires: 09/08/2024 [facility] Comment on above: Expected: 09/09/2023 (Approximate), Expi res: 09/08/2024 Start: 09-09-2023 End: 09-08-2024 Comprehensive metabolic 1998 panel - Serum or Plasma Comprehensive metabolic panel Lab Routine Severe alcohol use disorder (HCC) Expected: 09/09/2023 (Approximate), Expires: 09/08/2024 [facility] Work Phone: Comment on above: Expected: 09/09/2023 (Approximate), Expi res: 09/08/2024 Start: 09-02-2023 End: 09-02-2023 Patient encounter procedure 09/02/2023 2:30 PM EDT Office Visit [facility] [address] [place] [address] Nikky Escobar MD [address] [place], [place] [id number] [facility] Start: 09-02-2023 End: 09-01-2024 MEDICATION ASSISTED TREATMENT PANEL MEDICATION ASSISTED TREATMENT PANEL Lab Routine Severe opioid use disorder (HCC) Expected: 09/02/2023 (Approximate), Expires: 09/01/2024 [facility] Work Phone: Comment on above: Expected: 09/02/2023 (Approximate), Expi res: 09/01/2024 Start: 08-26-2023 End: 08-25-2024 Buprenorphine and Metab, Urine, Quant Buprenorphine and Metab, Urine, Quant Lab Routine Opioid withdrawal (HCC) Expected: 08/26/2023 (Approximate), Expires: 08/25/2024 [facility] Work Phone: Comment on above: Expected: 08/26/2023 (Approximate), Expi res: 08/25/2024 Start: 08-26-2023 End: 08-25-2024 BUPRENORPHINE SCREEN BUPRENORPHINE SCREEN Lab Routine Opioid withdrawal (HCC) Expected: 08/26/2023 (Approximate), Expires: 08/25/2024 [facility] Comment on above: Expected: 08/26/2023 (Approximate), Expi res: 08/25/2024 Start: 08-26-2023 End: 08-25-2024 DRUG MONITOR, FENTANYL, SCREEN, URINE ([facility]) Drug Monitor, Fentanyl, Screen, Urine ([facility]) Lab Routine Opioid withdrawal (HCC) Expected: 08/26/2023 (Approximate), Expires: 08/25/2024 [facility] Comment on above: Expected: 08/26/2023 (Approximate), Expi res: 08/25/2024 Start: 08-26-2023 End: 08-25-2024 DRUG TOX MONITORING 4 SCREEN, URINE ([facility]) Drug Tox Monitoring 4 Screen, Urine ([facility]) Lab Routine Opioid withdrawal (HCC) Expected: 08/26/2023 (Approximate), Expires: 08/25/2024 [facility] Comment on above: Expected: 08/26/2023 (Approximate), Expi res: 08/25/2024 Start: 08-26-2023 End: 08-25-2024 Ethanol, urine Ethanol, urine Lab Routine Opioid withdrawal (HCC) Expected: 08/26/2023 (Approximate), Expires: 08/25/2024 [facility] Comment on above: Expected: 08/26/2023 (Approximate), Expi res: 08/25/2024 Start: 08-19-2023 End: 08-19-2023 Patient encounter procedure 08/19/2023 3:00 PM EDT Office Visit [facility] [address] [place] [address] Nikky Escobar MD [address] [place] [address] [facility] Start: 07-22-2023 End: 07-22-2023 Patient encounter procedure 07/22/2023 3:00 PM EDT Office Visit [facility] [address] [place] [address] Thiago Hilton DO [address] [place] [address] [facility] Start: 07-01-2023 End: 07-01-2023 Patient encounter procedure 07/01/2023 1:30 PM EDT Office Visit [facility] [address] [place] [address] Thiago Hilton DO [address] [place] [address] [facility] Start: 05-05-2023 Depression Monitoring Depression Monitoring [facility] Start: 05-05-2023 Depresssion Monitoring Depresssion Monitoring [facility] Start: 04-08-2023 End: 04-08-2023 Telemedicine consultation with patient 04/08/2023 3:30 PM EST Telemedicine [facility] [address] [place] [phone] Thiago Hilton DO [address] [place] [address] [facility] Start: 03-12-2023 End: 01-09-2024 QUANTIFERON TB GOLD QUANTIFERON TB GOLD Lab Routine Encounter for testing for latent tuberculosis Expected: 03/12/2023 (Approximate), Expires: 01/09/2024 [facility] Work Phone: Comment on above: Expected: 03/12/2023 (Approximate), Expi res: 01/09/2024 Start: 03-11-2023 End: 03-11-2023 Patient encounter procedure 03/11/2023 3:00 PM EST Office Visit [place] [address] [place] [phone] Thiago Hilton DO [address] [place] [address] [facility] Start: 12-10-2022 End: 12-10-2022 Patient encounter procedure 12/10/2022 2:30 PM EDT Office Visit [facility] [address] [place] [address] Thiago Hilton DO [address] [place] [address] [facility] Start: 11-12-2022 End: 11-12-2022 Patient encounter procedure 11/12/2022 3:45 PM EDT Office Visit [facility] [address] [place] [address] Thiago Hilton DO [address] [place] [address] [facility] Start: 10-10-2022 COVID-19 Vaccine ( season) COVID-19 Vaccine ( season) [facility] Start: 10-10-2022 Influenza vaccination Influenza Vaccine (#1) [facility] Start: 02-22-2021 COVID-19 Vaccine (3 - Booster for Pfizer series) COVID-19 Vaccine (3 - Booster for Pfizer series) [facility] Start: 02-22-2021 COVID-19 Vaccine (3 - Pfizer series) COVID-19 Vaccine (3 - Pfizer series) [facility] Start: 10-11-2019 Influenza vaccination Flu vaccine (Season Ended) [place], [place] Start: 2005 DTaP/Tdap/Td vaccine (1 - Tdap) DTaP/Tdap/Td vaccine (1 - Tdap) [place] Start: 2005 Hepatitis A Vaccines (1 of 2 - Risk 2-dose series) Hepatitis A Vaccines (1 of 2 - Risk 2-dose series) [facility] Start: 2005 Pneumococcal Vaccine: Pediatrics (0 to 5 Years) and At-Risk Patients (6 to 49 Years) (1 of 2 - PCV) Pneumococcal Vaccine: Pediatrics (0 to 5 Years) and At-Risk Patients (6 to 49 Years) (1 of 2 - PCV) [facility] Start: 2005 [facility] Start: 2004 Diabetes mellitus screening Diabetes Screening [facility] Start: 2004 Hepatitis C screening Hepatitis C Screening [facility] Start: 2001 HIV screening HIV screen [place], [place] Start: 11-06-1999 Hepatitis B Vaccines (2 of 3 - 3-dose series) Hepatitis B Vaccines (2 of 3 - 3-dose series) [facility] Start: 11-06-1999 Varicella vaccination [facility] Start: 11-06-1999 [facility] Start: 10-10-1999 DTaP/Tdap/Td Vaccines (2 - Tdap) DTaP/Tdap/Td Vaccines (2 - Tdap) [facility] Start: 1998 Depression Screening Depression Screening [facility] Start: 1992 Pneumococcal 0-64 years Vaccine (1 of 1 - PPSV23) Pneumococcal 0-64 years Vaccine (1 of 1 - PPSV23) [place] Start: 1992 Pneumococcal Vaccine: Pediatrics (0 to 5 Years) and At-Risk Patients (6 to 64 Years) (1 - PCV) Pneumococcal Vaccine: Pediatrics (0 to 5 Years) and At-Risk Patients (6 to 64 Years) (1 - PCV) [facility] Start: 1992 Pneumococcal Vaccine: Pediatrics (0 to 5 Years) and At-Risk Patients (6 to 64 Years) (1 of 2 - PCV) Pneumococcal Vaccine: Pediatrics (0 to 5 Years) and At-Risk Patients (6 to 64 Years) (1 of 2 - PCV) [facility] Start: 1992 [facility] Start: 10-01-1987 Hepatitis A Vaccines (1 of 2 - Risk 2-dose series) Hepatitis A Vaccines (1 of 2 - Risk 2-dose series) [facility] Start: 10-01-1987 Varicella vaccine (1 of 2 - 2-dose childhood series) Varicella vaccine (1 of 2 - 2-dose childhood series) [place] Start: 1986 Dental Oral Exam Dental Oral Exam [facility] Start: 1986 Dental X-ray bitewing Dental X-Ray: Bitewings [facility] Start: 1986 HIV screening HIV Screening [facility] Start: 1986 Lipid panel Lipid Panel [facility] Start: 1986 Preventive periodontal procedure, periodontal prophylaxis Dental Prophylaxis [facility] [id number], Quantitative [id number], Quantitative Lab Routine Elevated liver enzymes 2024 3:01 PM EDT [facility] Antimitochondrial antibody Antimitochondrial antibody Lab Routine Elevated liver enzymes 2024 3:01 PM EDT [facility] End: 07-28-2019 C. Trachomatis / N. Gonorrhoeae, DNA C. Trachomatis / N. Gonorrhoeae, DNA Microbiology STAT One Time for 1 Occurrences starting 07/28/2019 until 07/28/2019 [place] Comment on above: One Time for 1 Occurrences starting 07/10 until 07/28/2019 C. Trachomatis / N. Gonorrhoeae, DNA C. Trachomatis / N. Gonorrhoeae, DNA Microbiology STAT 07/28/2019 6:53 PM EDT [place] CELIAC PANEL Celiac Panel Lab Routine Elevated liver enzymes 2024 3:01 PM EDT [facility] Celiac Panel Celiac Panel Lab Routine Elevated liver enzymes 2024 3:01 PM EDT [facility] complete denture - maxillary Max Max NE COMPLETE DENTURE - MAXILLARY Dental Routine 1 Occurrences starting 10/04/2024 [facility] Comment on above: 1 Occurrences starting 10/04/2024 comprehensive oral evaluation - new or established patient NE COMPREHENSIVE ORAL EVALUATION - NEW OR ESTABLISHED PATIENT Dental Routine 1 Occurrences starting 08/24/2024 [facility] Work Phone: Comment on above: 1 Occurrences starting 08/24/2024 ECG 12 lead ECG 12 lead CV E CG STAT 05/24/2022 6:44 AM EDT [facility] Work Phone: extraction, erupted tooth or exposed root (elevation and/or forceps removal) [facility] Work Phone: Comment on above: 1 Occurrences starting 10/04/2024 Hepatitis B Core Antibody, Total Hepatitis B Core Antibody, Total Lab Routine Elevated liver enzymes 2024 3:01 PM EDT [facility] INR in Blood by Coagulation assay POCT INR manually resulted Point of Care Testing Routine Severe alcohol use disorder (HCC) Ordered: 09/09/2023 [facility] Comment on above: Ordered: 09/09/2023 Liver-Kidney Microso me 1 Ab Liver-Kidney Microsome 1 Ab Lab Routine Elevated liver enzymes 2024 3:01 PM EDT [facility] mandibular partial denture - cast metal framework with resin denture bases (including any conventional clasps, rests and teeth) 23,24,25,26,29,30,31,21, 19,18 23,24,25,26,29,30,31,21, 19,18 NE MANDIBULAR PARTIAL DENTURE - CAST METAL FRAMEWORK WITH RESIN DENTURE BASES (INCLUDING RETENTIVE/CLASPING MATERIALS, RESTS AND TEETH) Dental Routine 1 Occurrences starting 10/04/2024 [facility] Comment on above: 1 Occurrences starting 10/04/2024 End: 06-20-2024 MR Abdomen WO and W contrast IV [facility] Work Phone: Comment on above: Once for 1 Occurrences starting 06/21/19 until 06/20/2024 NC VISIT PART OF MULTI-VISIT PROCEDURE NC VISIT PART OF MULTI-VISIT PROCEDURE Dental Routine 1 Occurrences starting 11/15/2024 [facility] Work Phone: Comment on above: 1 Occurrences starting 11/15/2024 Nuclear Ab [Titer] i n Serum by Immunofluorescence [facility] Lab Routine Elevated liver enzymes 2024 3:01 PM EDT [facility] NE REMOVAL OF TORUS MANDIBULARIS NE REMOVAL OF TORUS MANDIBULARIS Dental Routine 1 Occurrences starting 10/04/2024 [facility] Comment on above: 1 Occurrences starting 10/04/2024 QUANTIFERON - PLUS G RAY TUBE QUANTIFERON - PLUS FRANCO TUBE Lab STAT Positive 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 01/07/2023 8:58 AM EST [facility] QUANTIFERON - PLUS G REEN TUBE QUANTIFERON - PLUS GREEN TUBE Lab STAT Positive 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 01/07/2023 8:58 AM EST [facility] QUANTIFERON - PLUS P URPLE TUBE QUANTIFERON - PLUS PURPLE TUBE Lab STAT Positive 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 01/07/2023 8:58 AM EST [facility] QUANTIFERON - PLUS Y ELLOW TUBE QUANTIFERON - PLUS YELLOW TUBE Lab STAT Positive 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 01/07/2023 8:58 AM EST [facility]ON [facility] GOLD QUANTIFERON TB GOLD Lab STAT Positive 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 01/07/2023 8:58 AM EST [facility] Work Phone: resin-based composit e - one surface, anterior 22 I 22 I NE RESIN-BASED COMPOSITE - ONE SURFACE, ANTERIOR Dental Routine 1 Occurrences starting 10/04/2024 [facility] Comment on above: 1 Occurrences starting 10/04/2024 resin-based composit e - one surface, posterior [facility] Comment on above: 1 Occurrences starting 10/04/2024 resin-based composit e - three surfaces, anterior 27 MID 27 MID NE RESIN-BASED COMPOSITE - THREE SURFACES, ANTERIOR Dental Routine 1 Occurrences starting 10/04/2024 [facility] Comment on above: 1 Occurrences starting 10/04/2024 Smooth muscle antibo dy with reflex Titer Smooth muscle antibody with reflex Titer Lab Routine Elevated liver enzymes 2024 3:01 PM EDT [facility] Immunizations Immunization Date Immunization Notes Care Provider [facility] 08-10-2022 tetanus toxoid, reduced diphtheria toxoid, and acellular pertussis vaccine, adsorbed Guillermo Perales MD Work Phone: [facility] 03-17-2022 Influenza, injectable, Madin Laurence Canine Kidney, preservative free, quadrivalent Neetu Houston Work Phone: [facility] 03-17-2022 influenza virus vaccine, unspecified formulation Guillermo Perales MD Work Phone: [facility] 12-28-2020 Covid (Pfizer) No Primary Ca re Physician [facility] 12-07-2020 Covid (Pfizer) No Primary Ca re Physician [facility] 10-09-1999 hepatitis B vaccine, pediatric or pediatric/adolescent dosage Bhupinder Boyd MD Work Phone: [facility] 10-09-1999 measles, mumps and rubella virus vaccine Bhupinder Body MD Work Phone: [facility] 10-09-1999 TD(adult) unspecifie d formulation Bhupinder Boyd MD Work Phone: [facility] NEGATED: Highlighted row has not occurred!02-06-2024 influenza, injectable, madin laurence canine kidney, preservative free Francisco Landa MD Work Phone: [facility] Comment on above: Deferred: Patient Re fused - states received one this season. refused NEGATED: Highlighted row has not occurred!01-25-2024 influenza, injectable, madin laurence canine kidney, preservative free Calvin Stephens MD Work Phone: [facility] Comment on above: Deferred: Patient Re fused NEGATED: Highlighted row has not occurred!03-30-2018 Influenza, Quadv, 6 mo and older, IM, PF (Flulaval, Fluarix) [facility] [place] Payers Date Payer Category Payer Self-pay 2022 Unknown [id number] 2021 Medicaid - Dental [place] [employer] D[employer] [id number] 2021 Medicaid HMO [id number] 2019 Medicaid [id number] 2018 Medicaid [id number] 2018 Unknown [facility] xxxxxxxxxxxx 2018-Present [phone] [address] [place] [address] xxxxxxxxxxxx [id number] 1986 Unknown [id number] 4 1986 Unknown [id number] 4 1986 Unknown [id number] 4 1986 Unknown [id number] 4 1986 Unknown [id number] 4 Unknown [id number] 2 Unknown [id number] 2 Unknown [id number] 2 Social History Date Type Detail Facility Start: 07-28-2019 End: 08-11-2023 Tobacco smoking status NHIS Current every day smoker [facility] History of tobacco use Cigarette Smoker [place] Start: 07-28-2019 End: 04-20-2024 Cigarettes smoked current (pack per day) - Reported [facility] Start: 07-28-2019 End: 08-15-2023 Alcohol intake Current drinker of alcohol (finding) [place] Start: 06-06-2018 End: 03-16-2022 History SDOH Alcohol Frequency 5 [place] Start: 06-06-2018 Alcohol Comment 5th of liquor [place] Start: 1985 Sex Assigned At Not on file [place] Exposure to SARS-CoV -2 (event) Unable to assess [place] Start: 03-16-2022 Alcohol Comment 1 gallon of vo dka, 12 pack of beer daily [facility] Start: 03-05-2022 End: 11-03-2022 Exposure to SARS-CoV-2 (event) Not sure [facility] Start: 06-12-2022 End: 08-11-2023 Tobacco use and exposure Smokeless tobacco non-user [facility] Start: 06-12-2022 History SDOH Alcohol Std Drinks 3 [facility] Start: 07-10-2022 Alcohol Comment 1 liter black velvet and a case of beer per day [facility] Start: 1986 Sex Assigned At Male [facility] Start: 06-26-2022 End: 04-20-2024 Alcohol Use Disorder Identification Test - Consumption [AUDIT-C] [facility] How often to you hav e a drink containing alcohol? 4 or more times a week [facility] How many standard dr inks containing alcohol do you have on a typical day? 10 or more [facility] How often do you hav e 6 or more drinks on 1 occasion? Daily or almost daily [facility] Start: 06-26-2022 Gender identity Identifies as male gender (finding) [facility] Within the last year , have you been afraid of your partner or ex-partner? No [facility] In a typical week, h ow many times do you talk on the telephone with family, friends, or neighbors? Patient refused [facility] Are you now , , , , never or living with a partner? Refused [facility] How hard is it for y ou to pay for the very basics like food, housing, medical care, and heating Very hard [facility] Do you feel stress - tense, restless, nervous, or anxious, or unable to sleep at night because your mind is troubled all the time - these days [OSQ] To some extent [facility] (I/We) worried wheth er (my/our) food would run out before (I/we) got money to buy more. Often true [facility] In the past 12 month s, was there a time when you were not able to pay the mortgage or rent on time? Yes [facility] How often to you hav e a drink containing alcohol? Never [facility] Start: 01-07-2023 End: 12-08-2024 Alcohol intake Ex-drinker (finding) [facility] Are you now , , , , never or living with a partner? Never [facility] Do you feel stress - tense, restless, nervous, or anxious, or unable to sleep at night because your mind is troubled all the time - these days [OSQ] Very much [facility] Start: 08-11-2023 Alcohol Comment 2/5 vodka daily [facility] Start: 09-09-2021 Sex Male (finding) [facility] alth How many standard dr inks containing alcohol do you have on a typical day? 7 to 9 [facility] How hard is it for y ou to pay for the very basics like food, housing, medical care, and heating Somewhat hard [facility] (I/We) worried wheth er (my/our) food would run out before (I/we) got money to buy more. Never true [facility] In the past 12 month s, how many times have you moved where you were living? In the past 12 months, how many times have you moved where you were living? [facility] How often do you hav e 6 or more drinks on 1 occasion? Weekly [facility] Start: 06-18-2024 Alcohol Comment former 2/5 vod ka daily. Sober since april 2024 [facility] How often do you nee d to have someone help you when you read instructions, pamphlets, or other written material from your doctor or pharmacy [SILS] Sometimes [facility] How often to you hav e a drink containing alcohol? 2-4 times a month [facility] How many standard dr inks containing alcohol do you have on a typical day? 5 or 6 [facility] How often do you hav e 6 or more drinks on 1 occasion? Monthly [facility] Goals Date Patient Goal Desired Activity /State Functional Status Date Assessment Result Facility 11-30-2024 Functional status [facility] Work Phone: 06-26-2024 Total score [AUDIT-C] 06/27/19 7:11 PM Cielo George RN [facility] 03-22-2024 Drug Abuse Screening Test-10 [DAST-10] [facility] 02-05-2024 Patient Health Quest ionnaire 2 item (PHQ-2) [Reported] [facility] 02-05-2024 PHQ-9 quick depressi on assessment panel [Reported.PHQ] [facility] 02-04-2024 Drug Abuse Screening Test-10 [DAST-10] [facility] 12-15-2023 Are you deaf, or do you have serious difficulty hearing No 12/15/2023 1:46 PM Edwige Fagan, RN No [facility] 12-15-2023 Are you blind, or do you have serious difficulty seeing, even when wearing glasses No 12/15/2023 1:46 PM Edwige Fagan, RN No [facility] 12-15-2023 Do you have serious difficulty walking or climbing stairs No 12/15/2023 1:46 PM Edwige Fagan, RN No [facility] 12-15-2023 Do you have difficul ty dressing or bathing No 12/15/2023 1:46 PM Edwige Fagan, RN No [facility] Mental Status Date Assessment Result Facility 12-01-2024 Cognitive function Voice/Name [facility] Work Phone: 12-15-2023 Because of a physica l, mental, or emotional condition, do you have serious difficulty concentrating, remembering, or making decisions No 12/15/2023 1:46 PM EST Edwige Roldan, JOSE GUADALUPE No [facility] Clinical Notes 03-15-2022 to 12-19-2024 Telephone Encounter - Katherin Monroe MA - 12/19/2024 1:44 PM ESTTelephone Encounter - Katherin Monroe MA - 12/19/2024 1:44 PM ESTTelephone Encounter - Katherin Monroe MA - 12/16/2024 1:35 PM EST Note Date & Type Note Facility 12-19-2024 Telephone encounter Note Images from the original note were not included. [facility] 12-19-2024 Miscellaneous Notes Images from the [...] and notify pt. documented in this encounter [facility] 12-16-2024 Telephone encounter Note Pt called into our office regarding miss appointment, pt was no show on his appt, want to r.s, let him know we do not have any opening as how now, discuss alternative gi , pt prefer [facility] Referral placed, faxed referral waiting on confrication [facility] 12-16-2024 Miscellaneous Notes Pt called into [...] and notify pt. documented in this encounter [facility] 12-13-2024 Telephone encounter Note Pt called [...] at 8:00 AM. Called and notify pt. [facility] 12-08-2024 Progress note Formatting of t his note might be different from the original. Request from [facility] for setting up transport home. WC van set up in [employer], claimed by Dill[employer] at 3pm. [employer] Phone: 12-08-2024 Miscellaneous Notes Request from [facility] for setting up transport home. WC van set up in [employer], claimed by Dill[employer] at 3pm. Patient does not have a ride post procedure. His mother who was listed as a ride is at work and can't make it. Patient unable to remember any phone numbers of friends & family members to call for assistance. Janet Uribe [facility]. [facility] Name: Roro Valdivia Procedure Date: 12/08/2024 12:34 PM Gender: Male Date of : 1985 Age: 39 Admit Type: Outpatient Note Status: Finalized Endoscopist: Sonya Cramer MD, [id number] Procedure: Upper GI endoscopy Indications: Alcoholic cirrhosis [...] by the physician, the nurse and the supervisor blast furnace in the pre-procedure area in the procedure [...] 12/08/2024 12:34 PM documented in this encounter [facility] 12-08-[address] Adrian Loyola anesthesiologist and Dr. Cramer endoscopist notified that patient does not have a ride home. No ride guideline safe transport policy followed. Same day social service assistant called and arrangements will be made for an ambulance to take patient home. Patient is aware of plan. [facility] 12-08-[address] Adrian Loyola anesthesiologist and Dr. Cramer endoscopist notified that patient does not have a ride home. No ride guideline safe transport policy followed. Same day social service assistant called and arrangements will be made for an ambulance to take patient home. Patient is aware of plan. documented in this encounter [facility] 12-08-2024 Note Patient does not hav e a ride post procedure. His mother who was listed as a ride is at work and can't make it. Patient unable to remember any phone numbers of friends & family members to call for assistance. Janet Uribe notified. [facility] 12-08-2024 Nurse Note Patient does not have a ride post procedure. His mother who was listed as a ride is at work and can't make it. Patient unable to remember any phone numbers of friends & family members to call for assistance. Janet Uribe notified. [facility] 12-08-2024 History and physical note GASTROENTEROLOGY [...] palsy, left Seizures (HCC) SVT (supraventricular tachycardia) ([facility]) Tourette syndrome [facility] [employer] Phone: 12-08-2024 Note [facility] 12-08-2024 History and [...] (HCC) Tourette syndrome documented in this encounter [facility] 12-08-2024 Procedure note [facility] Patient Name: Roro Valdivia Procedure Date: 12/08/2024 12:34 PM Gender: Male Date of : 1985 Age: 39 Admit Type: Outpatient Note Status: Finalized Endoscopist: Sonya Cramer MD, [id number] Procedure: Upper GI endoscopy Indications: Alcoholic cirrhosis [...] by the physician, the nurse and the supervisor blast furnace in the pre-procedure area in the procedure [...] 0 Note Initiated On: 12/08/2024 12:34 PM [facility] 12-01-2024 Telephone encounter Note [address] Sonya Cramer EGD Date: . 12/08/24 Arrival time: 12:15 pm Please report to: [place] [address] Spoke with pt, confirmed they will attend scheduled procedure. Patient states he has prep instructions, he disconnected the call before I could remind him he needed a delivery driver/supervisor. Prep instructions sent via [employer]Pura. [facility] 12-01-2024 Miscellaneous Notes [address] Sonya Cramer EGGennaro Date: . 12/08/24 Arrival time: 12:15 pm Please report to: [address] [address] Spoke with pt, confirmed they will attend scheduled procedure. Patient states he has prep instructions, he disconnected the call before I could remind him he needed a delivery driver/supervisor. Prep instructions sent via mPura. 14 or 7 day confirmation call? 14 [...] voiced understanding? No documented in this encounter [facility] 12-01-2024 Note [facility] Medical Records Department [address] [place] [address] Discharge Summary 12/01/24 0959 MR#: [id number] Acct: [id number] Name: RORO VALDIVIA Rep #: [id number] : 1985 39 From: Joe Mcmillan DO PCP: Care Physician,No Primary Status:ADM IN Location: [place] [address] Providers Date of Admission: 11/30/24 Primary Care [...] has cirrhosis by his GI physicians in [place]. Advised ongoing discontinuation of alcohol. DVT prophylaxis [...] Care Charges/Coding Visit Charges Inpatient E M: 33187 Disch Hosp 12/01/24 1003 Cosigner Signature (if applicable): CC: Dr. Joe Mcmillan DO; No Primary Care Physician Signed [facility] 11-30-2024 Discharge summary [facility] 11-29-2024 Discharge summary Note Date/Time November 30, 2024 1:26am [facility] Medical Records Department [address] [place] [address] Emergency Department Summary 11/29/24 MR#: [id number] Acct: [id number] Name: RORO VALDIVIA Rep #:[id number] : 1985 39 From: Amilcar lindsey DO [...] % (Auto) 63.3 Lymph % (Auto) 28.2 Woodward % (Auto) 7.5 Eos % (Auto) 0.5 [...] Primary [Primary Care Provider, Medical] Print Language: Maldivian What to do if you have Problems For any increased pain, shortness of breath, bleeding, nausea or vomiting, chestpain, or any unexpected problems, contact your Primary Care Provider. Call [facility] ([phone]) or report to the closest Emergency Room. Call 911 if necessary. 11/30/24 0026 <Electronically signed by Amilcar Dumont DO> Cosigner Signature (if applicable): CC: No Primary Care Physician ~ Signed [facility] Work Phone: [phone]) 808-627510-16-2025 Telephone encounter Note* Telephone Encounter - Suzy [...] answered and patient voiced understanding? No T [id number] History of Present illness Narrative* Ajay Ochoa DMD - 11/15/2024 2:00 PM EDT Procedure Details 19 D7140 - NE EXTRACTION, ERUPTED TOOTH OR EXPOSED ROOT (ELEVATION AND/OR FORCEPS REMOVAL) 21 D7140 - NE EXTRACTION, ERUPTED TOOTH OR EXPOSED ROOT (ELEVATION AND/OR FORCEPS REMOVAL) 23 D7140 - NE EXTRACTION, ERUPTED TOOTH OR EXPOSED ROOT (ELEVATION AND/OR FORCEPS REMOVAL) 24 D7140 - NE EXTRACTION, ERUPTED TOOTH OR EXPOSED ROOT (ELEVATION AND/OR FORCEPS REMOVAL) 25 D7140 - NE EXTRACTION, ERUPTED TOOTH OR EXPOSED ROOT (ELEVATION AND/OR FORCEPS REMOVAL) 26 D7140 - NE EXTRACTION, ERUPTED TOOTH OR EXPOSED ROOT (ELEVATION AND/OR FORCEPS REMOVAL) 29 D7140 - NE EXTRACTION, ERUPTED TOOTH OR EXPOSED ROOT (ELEVATION [...] DMD 3:27 PM 11/15/24 documented in this [facility]10-07-2025 History of Present illness Narrative* Ajay Ochoa DMD - 11/15/2024 2:00 PM EDT Procedure Details 19 D7140 - NE EXTRACTION, ERUPTED TOOTH OR EXPOSED ROOT (ELEVATION AND/OR FORCEPS REMOVAL) 21 D7140 - NE EXTRACTION, ERUPTED TOOTH OR EXPOSED ROOT (ELEVATION AND/OR FORCEPS REMOVAL) 23 D7140 - NE EXTRACTION, ERUPTED TOOTH OR EXPOSED ROOT (ELEVATION AND/OR FORCEPS REMOVAL) 24 D7140 - NE EXTRACTION, ERUPTED TOOTH OR EXPOSED ROOT (ELEVATION AND/OR FORCEPS REMOVAL) 25 D7140 - NE EXTRACTION, ERUPTED TOOTH OR EXPOSED ROOT (ELEVATION AND/OR FORCEPS REMOVAL) 26 D7140 - NE EXTRACTION, ERUPTED TOOTH OR EXPOSED ROOT (ELEVATION AND/OR FORCEPS REMOVAL) 29 D7140 - NE EXTRACTION, ERUPTED TOOTH OR EXPOSED ROOT (ELEVATION [...] plan. Vamshi Moncada DDS documented in this [facility]10-07-2025 Telephone encounter Note* Telephone Encounter - Hattie Law MA - 11/15/2024 12:56 PM EDT I called patient to relay new order information, no answer, left voicemail to let him know new bloodwork ordered, advised to call office if he does have questions. [facility] HospitalDxwsbr60-11-7472 Miscellaneous Notes* Telephone Encounter - Hattie Law [...] marker is negative. ----- Message ----- From: [facility] Lab Results In Sent: 11/05/2024 6:10 AM EDT To: Guillermo Mon PA-C * Result Encounter Note - Guillermo Mon PA-C - 11/07/2024 11:03 AM EDT INR is slightly increased, but improved since last time. * Result Encounter Note - Guillermo Mon PA-C - 11/07/2024 10:26 AM EDT Liver numbers are going down. AFP tumor marker is negative. documented in this [facility]10-02-2025 Note* Addendum Note - Guillermo Mon PA-C - 11/10/2024 3:31 PM EDTAddended by: GUILLERMO MON on: 11/10/2024 03:31 PM Modules accepted: Orders [place] [id number] Note* Addendum Note - Guillermo Mon PA-C - 11/10/2024 3:31 PM EDTAddended by: GUILLERMO MON on: 11/10/2024 03:31 PM Modules accepted: Orders [place] [id number] Progress note* Result Encounter Note - Guillermo Mon PA-C - 11/10/2024 3:31 PM EDT Hep A positive. Most likely from previous resolved infection or immunity. But will check to see if recent infection. [facility] HospitalRruyfn78-83-7668 Miscellaneous Notes* Addendum Note - Guillermo Mon [...] marker is negative. ----- Message ----- From: [facility] Results In Sent: 11/05/2024 6:10 AM EDT To: Guillermo Mon PA-C * Result Encounter Note - Guillermo Mon PA-C - 11/07/2024 11:03 AM EDT INR is slightly increased, but improved since last time. * Result Encounter Note - Guillermo Mon PA-C - 11/07/2024 10:26 AM EDT Liver numbers are going down. AFP tumor marker is negative. documented in this [facility]10-01-2025 Telephone encounter Note* Telephone Encounter - Hattie Law MA - 11/09/2024 1:52 PM EDT Called back patient and spoke with him. Patient is concerned about abnormal hepatitis A result and would like to know if any additional testing needs done or what to do. Advised will route to provider for review [facility] HospitalDozpcr22-37-9890 Miscellaneous Notes* Telephone Encounter - Hattie Law [...] is negative. ----- Message ----- From: Alessandra [employer] Lab Results In Sent: 11/05/2024 6:10 AM EDT To: Guillermo Mon PA-C * Result Encounter Note - Guillermo Mon PA-C - 11/07/2024 11:03 AM EDT INR is slightly increased, but improved since last time. * Result Encounter Note - Guillermo Mon PA-C - 11/07/2024 10:26 AM EDT Liver numbers are going down. AFP tumor marker is negative. documented in this encounterSSt. [facility]'s HospitalNygqwk17-31-7869 Telephone encounter Note* Telephone Encounter - Afshin Dubose - 11/08/2024 1:05 PM EDT Pt called and lvm for office frustrated as he keeps missing our calls and can never get a hold of our office back. Thanks [facility] [id number] Miscellaneous Notes* Telephone Encounter - Afshin Dubose [...] marker is negative. ----- Message ----- From: [facility] Results In Sent: 11/05/2024 6:10 AM EDT To: Guillermo Mon PA-C * Result Encounter Note - Guillermo Mon PA-C - 11/07/2024 11:03 AM EDT INR is slightly increased, but improved since last time. * Result Encounter Note - Guillermo Mon PA-C - 11/07/2024 10:26 AM EDT Liver numbers are going down. AFP tumor marker is negative. documented in this encounterSSt. Anthony's HospitalHdtjkx48-82-6708 Telephone encounter Note* Telephone Encounter - Hattie Law MA - 11/08/2024 11:41 AM EDT Called patient, no answer, left voicemail relaying results. Provided office number if patient has any questions or concerns. [facility] HospitalKltixh64-19-4182 Telephone encounter Note* Telephone Encounter - Hattie Law MA - 11/08/2024 11:41 AM EDT ----- Message from Judith Park sent at 11/08/2024 10:55 AM EDT ----- ----- Message ----- From: Guillermo Mon PA-C Sent: 11/07/2024 10:26 AM EDT To: Judith Sofia MA Liver numbers are going down. AFP tumor marker is negative. ----- Message ----- From: [facility] Results In Sent: 11/05/2024 6:10 AM EDT To: Guillermo Mon PA-C [id number] Progress note* Result Encounter Note - Guillermo Mon PA-C - 11/07/2024 11:03 AM EDT INR is slightly increased, but improved since last time. [employer] Phone: [phone] Telephone encounter Note* Telephone Encounter - Hattie Law MA - 11/07/2024 10:42 AM EDT Ok from anesthesia standpoint per wanda loyola [facility] HospitalMiiixGevqtj87-79-8151 Miscellaneous Notes* Telephone Encounter - Hattie Law [...] at 1:[address] Cramer at [facility] NON-MAIN ENDO forhistory of esophagitis. Patient aware prep instructions will be mailed to him and sent via mPura EPIC schedule updated Order submitted Open Case request submitted Case # [id number] Endo packet mailed to patient Prep sent via mPura if pt acct active Pt is aware they will need a delivery driver/supervisor to take them home from procedure. Must be family member or friend. They can only use ride programs, IF they have a friend or family member to ride with them. Ex: Uber, Lyft, SCAT, bus, etc...) * Telephone Encounter - Hattie Law MA - 11/01/2024 10:02 AM EDT --Please call office with any questions or concerns! [phone] --Schedule EGD (upper endoscopy) for varices screening, follow up of esophagitis. --Continue Pantoprazole 40 mg daily. --Obtain additional blood work for further evaluation of the symptoms. --Continue to abstain from alcohol. --Please see handout provided regarding additional information. --Follow-up with PCP, and in GI clinic in about 6 months. documented in this encounterSSt. Anthony's HospitalAelifa03-50-7906 Progress note* Result Encounter Note - Guillermo Mon PA-C - 11/07/2024 10:26 AM EDT Liver numbers are going down. AFP tumor marker is negative. [facility] HospitalZmafrb82-32-5738 Telephone encounter Note* Telephone Encounter - Hattie [...] call back, left voicemail with office number. SterraClimbNffjxu81-76-1780 Telephone encounter Note* Telephone Encounter - Hattie Law MA - 11/01/2024 10:03 AM EDT Scheduled patient for EGD 12/08/24 at 1:[address] Cramer at [facility] NON-MAIN ENDO forhistory of esophagitis. Patient aware prep instructions will be mailed to him and sent via [employer] schedule updated Order submitted Open Case request submitted Case # [id number] Endo packet mailed to patient Prep sent via mPura if pt acct active Pt is aware they will need a delivery driver/supervisor to take them home from procedure. Must be family member or friend. They can only use ride programs, IF they have a friend or family member to ride with them. Ex: Uber, Lyft, SCAT, bus, etc...) SterraClimbHkhwcs79-21-0770 Telephone encounter Note* Telephone Encounter - Hattie Law MA - 11/01/2024 10:02 AM EDT --Please call office with any questions or concerns! [phone] --Schedule EGD (upper endoscopy) for varices screening, follow up of esophagitis. --Continue Pantoprazole 40 mg daily. --Obtain additional blood work for further evaluation of the symptoms. --Continue to abstain from alcohol. --Please see handout provided regarding additional information. --Follow-up with PCP, and in GI clinic in about 6 months. T SterraClimbVgmvyx85-35-7740 History of Present illness Narrative* Guillermo Mon PA-C - 11/01/2024 9:00 AM EDT Images from the original note were not included. [facility] GASTRO[facility]OLOG[facility] - [address] [facility] [address] Dept: [phone] Dept Loc: [phone] Visit type: Established Reason for Visit: Follow-up [...] type 04/04/2024 Priority: Medium Severe malnutrition (CMS/HCC) ([facility]) 02/06/2024 Priority: Medium Alcohol withdrawal syndrome without complication ([facility]) 02/04/2024 Priority: Medium Alcohol-induced acute pancreatitis, unspecified complication status 01/20/2024 Priority: Medium Alcoholic intoxication without complication (CMS/HCC) ([facility]) 12/13/2023 Priority: Medium Moderate malnutrition (CMS/HCC) ([facility]) 11/20/2023 Priority: Medium Acute pancreatitis without infection or necrosis 11/18/2023 Priority: Medium Acute recurrent pancreatitis 10/16/2023 Priority: Medium Severe opioid use disorder on maintenance therapy ([facility]) 08/11/2023 Priority: Medium Severe episode of recurrent major depressive disorder, without psychotic features ([facility]) 08/11/2023 Priority: Medium Severe alcohol use disorder ([facility]) 06/24/2023 Priority: Medium Positive 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 01/07/2023 Priority: Medium History of pancreatitis 01/07/2023 Priority: Medium Benzodiazepine withdrawal with complication ([facility]) 11/04/2022 Priority: Medium Opioid withdrawal ([facility]) 11/04/2022 Priority: Medium Amphetamine withdrawal ([facility]) 11/04/2022 Priority: Medium Pneumonia 11/04/2022 Priority: Medium [...] Note Status: Finalized Endoscopist: Hari Kline MD, [id number] Procedure: Upper GI endoscopy Indications: Hematemesis Findings: [...] may add carafate - [facility] - Advance diet as tolerated - [...] call office with any questions or concerns! [phone] --Schedule EGD (upper endoscopy) for varices screening, [...] through Care Everywhere. * Upper GI Endoscopy (Maldivian) documented in this [facility]09-09-2025 Telephone encounter Note* Telephone Encounter - Steph Garcia - 10/18/2024 10:48 AM EDT Pt has an appointment on 11/15 will schedule at that time. [facility] HospitalNpyney80-95-7658 Miscellaneous Notes* Telephone Encounter - Steph Garcia - 10/18/2024 10:48 AM EDT Pt has an appointment on 11/15 will schedule at that time. * Telephone Encounter - Aydee Martinez - 10/17/2024 8:17 AM EDT LOWER PARTIAL, FULL UPPER AND RUBIN REMOVAL APPROVED. PLEASE SCHEDULE. documented in this [facility]09-08-2025 Telephone encounter Note* Telephone Encounter - Aydee Martinez - 10/17/2024 8:17 AM EDT LOWER PARTIAL, FULL UPPER AND RUBIN REMOVAL APPROVED. PLEASE SCHEDULE. [facility] HospitalLxxycf66-18-7373 History of Present illness Narrative* Lauren Alla Perez, DDS - 10/04/2024 4:00 PM EDT Procedure Details 20 D0220 - NE INTRAORAL - PERIAPICAL FIRST RADIOGRAPHIC IMAGE 23 D0220 - NE INTRAORAL - PERIAPICAL FIRST RADIOGRAPHIC IMAGE 25 D0220 - NE INTRAORAL - PERIAPICAL FIRST RADIOGRAPHIC IMAGE 27 D0220 - NE INTRAORAL - PERIAPICAL FIRST RADIOGRAPHIC IMAGE D0150 - NE COMPREHENSIVE ORAL EVALUATION - NEW OR ESTABLISHED [...] DDS 10/04/24 5:04 PM documented in this [facility]08-26-2025 History of Present illness Narrative* Lauren Perez DDS - 10/04/2024 4:00 PM EDT Procedure Details 20 D0230 - NE INTRAORAL - PERIAPICAL EACH ADDITIONAL RADIOGRAPHIC IMAGE 23 D0230 - NE INTRAORAL - PERIAPICAL EACH ADDITIONAL RADIOGRAPHIC IMAGE 25 D0230 - NE INTRAORAL - PERIAPICAL EACH ADDITIONAL RADIOGRAPHIC IMAGE 27 D0220 - NE INTRAORAL - PERIAPICAL FIRST RADIOGRAPHIC IMAGE D0150 - NE COMPREHENSIVE ORAL EVALUATION - NEW OR ESTABLISHED [...] DDS 10/04/24 5:04 PM documented in this [facility]08-26-2025 NoteI discussed the patient with the resident prior to treatment. I was available for consultation and/or directly participated in care. We agree with the treatment provided and the notations made. Christo Beltran, ERVIN 10/04/24 5:04 [facility]08-25-2025 Note* Addendum Note - Guillermo Mon PA-C - 10/03/2024 5:01 PM EDTAddended by: GUILLERMO MON on: 10/03/2024 05:01 PM Modules accepted: Orders [facility] [id number] Note* Addendum Note - Guillermo Mon PA-C - 10/03/2024 5:01 PM EDTAddended by: GUILLERMO MON on: 10/03/2024 05:01 PM Modules accepted: Orders [facility] [id number] Note* Addendum Note - Guillermo Mon PA-C - 10/03/2024 5:01 PM EDTAddended by: GUILLERMO MON on: 10/03/2024 05:01 PM Modules accepted: Orders [facility] [id number] Progress note* Result Encounter Note - Guillermo Mon PA-C - 10/03/2024 5:01 PM EDT Call Roro. Went over fibroscan. INR ordered. Will also order CMP. Continue with appointment 11/01/2024. [id number] Miscellaneous Notes* Addendum Note - Guillermo Mon [...] ordered by Eric Hartley. documented in this encounterSSt. Anthony's HospitalGcaylu44-60-5332 Telephone encounter Note* Telephone Encounter - Marcelina Hernandez MA - 10/03/2024 1:45 PM EDT Pt lvm requesting callback. Spoke with Pt he is requesting call to go over Fibroscan results prior to his appt. Pt is very worried about his results. [facility] HospitalWdegys45-77-8897 Telephone encounter Note* Telephone Encounter - Afshin Dubose - 10/03/2024 10:05 AM EDT Patient called and lvm for office trying to get results of his liver test. Upon review Guillermo stauffer patient results will be gone over in November during his OV. Thanks [facility] HospitalMfskjg93-12-9980 Progress note* Result Encounter Note - Guillermo Mon PA-C - 2024 2:05 PM EDT Will review Fibroscan with Roro 11/15/2024. Recommend to complete blood work as ordered by Eric Hartley. [facility] HospitalXcugav80-87-4045 Telephone encounter Note* Telephone Encounter - Steph Garcia - 08/31/2024 10:05 AM EDT Pt has appointment on 09/07 will schedule at that time. [facility] HospitalVfbapt45-10-3807 Miscellaneous Notes* Telephone Encounter - Steph Garcia - 08/31/2024 10:05 AM EDT Pt has appointment on 09/07 will schedule at that time. * Telephone Encounter - Aydee Martinez - 08/29/2024 10:30 AM EDT UPPER DENTURE APPROVED. PLEASE SCHEDULE documented in this encounterSSt. Anthony's HospitalBbgtfh83-67-1467 Telephone encounter Note* Telephone Encounter - Aydee Martinez - 08/29/2024 10:30 AM EDT UPPER DENTURE APPROVED. PLEASE SCHEDULE [facility] [id number] History of Present illness Narrative* Lauren Perez, PRIYAS - 08/24/2024 3:00 PM EDT Procedure Details 4 D0220 - NE INTRAORAL - PERIAPICAL FIRST RADIOGRAPHIC IMAGE 4 D7140 - NE EXTRACTION, ERUPTED TOOTH OR EXPOSED ROOT (ELEVATION AND/OR FORCEPS REMOVAL) 6 D7140 - NE EXTRACTION, ERUPTED TOOTH OR EXPOSED ROOT (ELEVATION AND/OR FORCEPS REMOVAL) 13 D7140 - NE EXTRACTION, ERUPTED TOOTH OR EXPOSED ROOT (ELEVATION AND/OR FORCEPS REMOVAL) D0330 - NE PANORAMIC RADIOGRAPHIC IMAGE Subjective Patient ID: Roro [...] Until 09/03/2024 at 2359 documented in this [facility]07-16-2025 History of Present illness Narrative* Lauren Perez DDS - 08/24/2024 3:00 PM EDT Procedure Details 4 D0220 - NE INTRAORAL - PERIAPICAL FIRST RADIOGRAPHIC IMAGE 4 D7140 - NE EXTRACTION, ERUPTED TOOTH OR EXPOSED ROOT (ELEVATION AND/OR FORCEPS REMOVAL) 6 D7140 - NE EXTRACTION, ERUPTED TOOTH OR EXPOSED ROOT (ELEVATION AND/OR FORCEPS REMOVAL) 13 D7140 - NE EXTRACTION, ERUPTED TOOTH OR EXPOSED ROOT (ELEVATION AND/OR FORCEPS REMOVAL) D0330 - NE PANORAMIC RADIOGRAPHIC IMAGE Subjective Patient ID: Roro [...] note. Vamshi Moncada DDS documented in this [facility]07-15-2025 History of Present illness Narrative* Seema Hartley, JOSÉ ANTONIO - COATER HAND - 08/23/2024 11:00 AM EDT Images from the original note were not included. [facility] - [address] [facility] [address] Dept: [phone] Dept Loc: [phone] Visit type: New Reason for Visit: Follow-up ( discuss mri and labs, known pancreatitis - wishing to see samira before she leaves) PCP: Tam Hughes, DO Assessment and Plan Diagnosis Plan 1. Alcohol induced acute pancreatitis without necrosis or infection 2. Elevated liver enzymes Antimitochondrial antibody REMINGTON Bvwrl-4-Vlaprunciue, Quantitative Smooth muscle antibody with reflex Titer Celiac Panel Ferritin Hepatitis B surface antibody Hepatitis B Core Antibody, Total Hepatitis B surface antigen Hepatitis C antibody Liver-Kidney Microsome 1 Ab Protime-INR Fibroscan Antimitochondrial antibody REMINGTON Mpwvt-7-Ipgjjlenjpy, Quantitative Smooth muscle antibody with reflex Titer [...] type 04/04/2024 Priority: Medium Severe malnutrition (CMS/HCC) ([facility]) 02/06/2024 Priority: Medium Alcohol withdrawal syndrome without complication ([facility]) 02/04/2024 Priority: Medium Alcohol-induced acute pancreatitis, unspecified complication status 01/20/2024 Priority: Medium Alcoholic intoxication without complication (CMS/HCC) ([facility]) 12/13/2023 Priority: Medium Moderate malnutrition (CMS/HCC) ([facility]) 11/20/2023 Priority: Medium Acute pancreatitis without infection or necrosis 11/18/2023 Priority: Medium Acute recurrent pancreatitis 10/16/2023 Priority: Medium Severe opioid use disorder on maintenance therapy (HCC) 08/11/2023 Priority: Medium Severe episode of recurrent major depressive disorder, without psychotic features ([facility]) 08/11/2023 Priority: Medium Severe alcohol use disorder ([facility]) 06/24/2023 Priority: Medium Positive 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 [...] disease) 06/06/2018 Hypertension 06/06/2018 SVT (supraventricular tachycardia) ([facility]) 06/06/2018 Tourette syndrome 06/06/2018 Alcohol induced acute pancreatitis without necrosis or infection 03/29/2018 Past Medical History: Past Medical History: Diagnosis Date Addiction to drug ([facility]) ([facility]) Alcohol abuse Alcohol withdrawal syndrome without complication ([facility]) 06/27/2022 Alcohol withdrawal with inpatient treatment, uncomplicated ([facility]) 03/15/2022 GERD (gastroesophageal reflux disease) History of pancreatitis 01/07/2023 Hypertension Pancreatitis Radial nerve palsy, left Seizures ([facility]) SVT (supraventricular tachycardia) ([facility]) Tourette syndrome Past Surgical History: Past Surgical [...] Negative 06/26/2022 HEPCAB Not Detected 11/23/2023 [id number] Ex[facility] Date/Time: 06/20/2024 13:29 Procedure: MR ABDOMEN [...] EDT Patient Name: RORO VALDIVIA : 1985 [facility]#: [id number] Exam Date/Time: 05/30/2024 22:45 Procedure: CT ABDOMEN [...] NP-C 12:26 PM 08/23/24 documented in this [facility]07-15-2025 History of Present illness Narrative* JOSÉ ANTONIO Harrison CNP - 08/23/2024 11:00 AM EDT Images from the original note were not included. [facility] - [address] [facility] [address] Dept: [phone] Dept Loc: [phone] Visit type: New Reason for Visit: Follow-up ( discuss mri and labs, known pancreatitis - wishing to see samira before she leaves) PCP: Tam Hughes, DO Assessment and Plan Diagnosis Plan 1. Alcohol induced acute pancreatitis without necrosis or infection 2. Elevated liver enzymes Antimitochondrial antibody REMINGTON Rqxza-2-Lygecgjdzyb, Quantitative Smooth muscle antibody with reflex Titer Celiac Panel Ferritin Hepatitis B surface antibody Hepatitis B Core Antibody, Total Hepatitis B surface antigen Hepatitis C antibody Liver-Kidney Microsome 1 Ab Protime-INR Fibroscan Antimitochondrial antibody REMINGTON Uceob-0-Swcqvctdtot, Quantitative Smooth muscle antibody with reflex Titer [...] type 04/04/2024 Priority: Medium Severe malnutrition (CMS/HCC) ([facility]) 02/06/2024 Priority: Medium Alcohol withdrawal syndrome without complication ([facility]) 02/04/2024 Priority: Medium Alcohol-induced acute pancreatitis, unspecified complication status 01/20/2024 Priority: Medium Alcoholic intoxication without complication (CMS/HCC) ([facility]) 12/13/2023 Priority: Medium Moderate malnutrition (CMS/HCC) ([facility]) 11/20/2023 Priority: Medium Acute pancreatitis without infection or necrosis 11/18/2023 Priority: Medium Acute recurrent pancreatitis 10/16/2023 Priority: Medium Severe opioid use disorder on maintenance therapy ([facility]) 08/11/2023 Priority: Medium Severe episode of recurrent major depressive disorder, without psychotic features ([facility]) 08/11/2023 Priority: Medium Severe alcohol use disorder ([facility]) 06/24/2023 Priority: Medium Positive 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 01/07/2023 Priority: Medium History of pancreatitis 01/07/2023 Priority: Medium Benzodiazepine withdrawal with complication (HCC) 11/04/2022 Priority: Medium Opioid withdrawal (HCC) 11/04/2022 Priority: Medium Amphetamine withdrawal ([facility]) 11/04/2022 Priority: Medium Pneumonia 11/04/2022 Priority: Medium [...] EDT [facility] 1985 [id number] Exam Date/Time: 05/30/2024 22:45 Procedure: CT ABDOMEN [...] NP-C 12:26 PM 08/23/24 documented in this [facility]07-15-2025 Instructions* Patient Instructions* Jhon Milian MA - 08/23/2024 11:00 AM EDT --blood work to be completed order given --fibroscan faxing order to ID dept --complete alcohol abstinence is recommended --diet recommendations printed for review --follow up in 2 months * Attachments The following attachments cannot be sent through Care Everywhere. * Pancreatitis Discharge Instructions (Maldivian) * Diet for Cirrhosis (Maldivian) documented in this [facility]07-15-2025 Instructions* Patient Instructions* Jhon Milian MA - 08/23/2024 11:00 AM EDT --blood work to be completed order given --fibroscan faxing order to ID dept --complete alcohol abstinence is recommended --diet recommendations printed for review --follow up in 2 months * Attachments The following attachments cannot be sent through Care Everywhere. * Pancreatitis Discharge Instructions (Maldivian) * Diet for Cirrhosis (Maldivian) documented in this [facility]07-15-2025 Miscellaneous Notes* Addendum Note - Vance Lizama - 08/23/2024 11:00 AM EDTAddended by: VANCE LIZAMA on: 2024 02:43 PM Modules accepted: Orders * Addendum Note - Vance Lizama - 08/23/2024 11:00 AM EDTAddended by: VANCE LIZAMA on: 2024 02:44 PM Modules accepted: Orders documented in this [facility]07-15-2025 Note* Addendum Note - Vance Lizama - 08/23/2024 11:00 AM EDTAddended by: VANCE LIZAMA on: 2024 02:43 PM Modules accepted: Orders [place] [id number] Note* Addendum Note - Vance Lizama - 08/23/2024 11:00 AM EDTAddended by: VANCE LIZAMA on: 2024 02:44 PM Modules accepted: Orders [place] [id number] Note* Addendum Note - Vance Lizama - 08/23/2024 11:00 AM EDTAddended by: VANCE LIZAMA on: 2024 02:43 PM Modules accepted: Orders [place] [id number] Note* Addendum Note - Vance Lizama - 08/23/2024 11:00 AM EDTAddended by: VANCE LIZAMA on: 2024 02:44 PM Modules accepted: Orders [place] [id number] Telephone encounter Note* Telephone Encounter - Hattie Law MA - 08/22/2024 3:06 PM EDT Patient called back in, sooner opening no longer available. Rescheduled for 11/15 at 10:30 and placed on cancellation list. Patient stated this appointment is too far out, will call with next opening we get. [place] [id number] Miscellaneous Notes* Telephone Encounter - Hattie Law [...] r/s OV due to provider OOO. Sent mPura message aswell for patient to respond to. Thanks documented in this encounterSSt. Anthony's [id number] Telephone encounter Note* Telephone Encounter - Suzy Carrero MA - 08/22/2024 1:46 PM EDT Lmtcb to get 10/05 appointment rescheduled due to the provider not being in the office. [facility] HospitalNdxqtw55-58-8359 Telephone encounter Note* Telephone Encounter - Maria Victoria Argueta - 08/15/2024 3:11 PM EDT Pt scheduled [facility] [id number] Miscellaneous Notes* Telephone Encounter - Maria Victoria Argueta - 08/15/2024 3:11 PM EDT Pt scheduled * Telephone Encounter - Gal Moreno - 08/09/2024 9:13 AM EDT Name of caller: Roro Contact phone number: [phone] Relationship to Patient: patient Provider: Any Practice: Dental Chief Complaint/Reason for Call: Patient cancelled exam for today. Please call to reschedule. Best time of day caller can be reached: any Patient advised that office/PCP has 24-48 business hours to return their call: no documented in this encounterSSt. Anthony's HospitalMhwdiy86-81-3980 Telephone encounter Note* Telephone Encounter - Gal Moreno - 08/09/2024 9:13 AM EDT Name of caller: Roro Contact phone number: [phone] Relationship to Patient: patient Provider: Any Practice: Dental Chief Complaint/Reason for Call: Patient cancelled exam for today. Please call to reschedule. Best time of day caller can be reached: any Patient advised that office/PCP has 24-48 business hours to return their call: no [facility] HospitalXdzcju10-17-0792 Telephone encounter Note* Telephone Encounter - Afshin Dubose - 08/01/2024 3:39 PM EDT Patient called office to r/s OV. Patient was offered next soonest OV, 10/05. Patient agreed, placed on cancellation list for sooner appointment. Thanks [facility] HospitalBphyrz85-27-0227 Miscellaneous Notes* Telephone Encounter - Afshin Dubose - 08/01/2024 3:39 PM EDT Patient called office to r/s OV. Patient was offered next soonest OV, 10/05. Patient agreed, placed on cancellation list for sooner appointment. Thanks * Telephone Encounter - Afshin Dubose - 07/25/2024 8:39 AM EDT Called and lvm for patient to contact office to r/s OV due to provider OOO. Sent mPura message Leap for patient to respond to. Thanks documented in this [facility]06-16-2025 Telephone encounter Note* Telephone Encounter - Afshin Dubose - 07/25/2024 8:39 AM EDT Called and lvm for patient to contact office to r/s OV due to provider OOO. Sent mPura message Leap for patient to respond to. Thanks [facility] HospitalQyxdyu22-58-4314 Hospital Discharge instructions* Discharge Instructions* Mattie Durbin DO - 06/26/2024 10:40 PM EDT Call to schedule an appointment with your primary care physician or gastroenterology for follow-up of your pancreatitis. If you have worsening pain or vomiting return to the ER. * Attachments The following attachments cannot be sent through Care Everywhere. * Pancreatitis Discharge Instructions (Maldivian) documented in this [facility]05-18-2025 Emergency department Note* Mattie Durbin DO [...] [facility] (Per Emergency Physician): Interpretation per the [...] stop drinking alcohol. 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 CRITICAL CARE TIME CONSULTS: None PROCEDURES: Unless otherwise noted below, none Procedures Patients symptoms are consistent with sepsis, severe sepsis, or septic shock (If yes use .sepsiscoremeasure): FINAL IMPRESSION 1. Alcohol-induced acute pancreatitis without infection or necrosis DISPOSITION Discharge 06/26/2024 10:38:49 PM PATIENT REFERRED TO: Tam Hughes DO [address] [facility] [id number] DISCHARGE MEDICATIONS: Discharge Medication List as of [...] Medical History: Diagnosis Date Addiction to drug ([facility]) ([facility]) Alcohol abuse Alcohol withdrawal syndrome without complication ([facility]) 06/27/2022 Alcohol withdrawal with inpatient treatment, uncomplicated ([facility]) 03/15/2022 GERD (gastroesophageal reflux disease) History of pancreatitis 01/07/2023 Hypertension Pancreatitis Seizures ([facility]) SVT (supraventricular tachycardia) ([facility]) Tourette syndrome [2] Past Surgical History: Procedure [...] 0 min Stress: Stress Concern Present (02/05/2024) [place] [employer] - Occupational Stress Questionnaire Feeling of Stress : To some extent Social Connections: Socially Isolated (02/05/2024) Social Connection and Isolation Panel [NHANES] Frequency of Communication with Friends and Family: More than three times a week Frequency of Social Gatherings with Friends and Family: More than three times a week Attends Episcopal Services: Never Active Member of Clubs or [...] Durbin DO 06/27/24 0048 documented in this [facility]05-18-2025 Physician Emergency department Note* Mattie Durbin [...] Physician [facility] (Per Emergency Physician): Interpretation per the [...] stop drinking alcohol. 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 CRITICAL CARE TIME CONSULTS: None PROCEDURES: Unless otherwise noted below, none Procedures Patients symptoms are consistent with sepsis, severe sepsis, or septic shock (If yes use .sepsiscoremeasure): FINAL IMPRESSION 1. Alcohol-induced acute pancreatitis without infection or necrosis DISPOSITION Discharge 06/26/2024 10:38:49 PM PATIENT REFERRED TO: Tam Hughes DO [address] [facility] [id number] DISCHARGE MEDICATIONS: Discharge Medication List as of [...] 06/27/2022 Alcohol withdrawal with inpatient treatment, uncomplicated ([facility]) 03/15/2022 GERD (gastroesophageal reflux disease) History of pancreatitis 01/07/2023 Hypertension Pancreatitis Seizures ([facility]) SVT (supraventricular tachycardia) ([facility]) Tourette syndrome [2] Past Surgical History: Procedure [...] 0 min Stress: Stress Concern Present (02/05/2024) [employer] [place] [employer] - Occupational Stress Questionnaire Feeling of Stress : To some extent Social Connections: Socially Isolated (02/05/2024) Social Connection and Isolation Panel [NHANES] Frequency of Communication with Friends and Family: More than three times a week Frequency of Social Gatherings with Friends and Family: More than three times a week Attends Episcopal Services: Never Active Member of Clubs or [...] Year: Yes Mattie Durbin DO 06/27/24 0048 [facility] HospitalAlttwv31-52-8921 Hospital Discharge instructions* Discharge Instructions* Fahad Cates [...] sent through Care Everywhere. * Chronic Pancreatitis (Maldivian) documented in this [facility]05-11-2025 Emergency department Note* Fahad Cates PA-C - 06/19/2024 7:23 PM EDT Emergency Department Encounter [facility] ED Pt Name: Roro Valdivia Birthdate 1985 [...] Medical History: Diagnosis Date Addiction to drug ([facility]) (HCC) Alcohol abuse Alcohol withdrawal syndrome without complication ([facility]) 06/27/2022 Alcohol withdrawal with inpatient treatment, uncomplicated ([facility]) 03/15/2022 GERD (gastroesophageal reflux disease) History of [...] 0 min Stress: Stress Concern Present (02/05/2024) [employer] [place] [employer] - Occupational Stress Questionnaire Feeling of Stress : To some extent Social Connections: Socially Isolated (02/05/2024) Social Connection and Isolation Panel [NHANES] Frequency of Communication with Friends and Family: More than three times a week Frequency of Social Gatherings with Friends and Family: More than three times a week Attends Episcopal Services: Never Active Member of Clubs or [...] Physician EKG interpretation can be found in [facility] ED BEDSIDE ULTRASOUND: Performed by ED Physician [...] PM PATIENT REFERRED TO: Tam Hughes DO [address] [facility] [address] Schedule an appointment as soon as possible [...] 06/19/2024 7:23 PM EDT Emergency Department Encounter [facility] ED Patient: Roro Valdivia : 1985 Date [...] ago he tried eating a hotdog and Maltese fries which instantly made pain significantly worse [...] [employer] Cory Adame DO 06/19/24 5330 documented in this [facility]05-11-2025 Physician Emergency department Note* Fahad Catse PA-C - 06/19/2024 7:23 PM EDT Emergency Department Encounter [facility] ED Pt Name: Roro Valdivia Birthdate 1985 [...] Medical History: Diagnosis Date Addiction to drug ([facility]) (HCC) Alcohol abuse Alcohol withdrawal syndrome without complication ([facility]) 06/27/2022 Alcohol withdrawal with inpatient treatment, uncomplicated ([facility]) 03/15/2022 GERD (gastroesophageal reflux disease) History of pancreatitis 01/07/2023 Hypertension Pancreatitis Seizures ([facility]) SVT (supraventricular tachycardia) ([facility]) Tourette syndrome SURGICAL HISTORY Past Surgical History: [...] 0 min Stress: Stress Concern Present (02/05/2024) [place] [employer] - Occupational Stress Questionnaire Feeling of Stress : To some extent Social Connections: Socially Isolated (02/05/2024) Social Connection and Isolation Panel [NHANES] Frequency of Communication with Friends and Family: More than three times a week Frequency of Social Gatherings with Friends and Family: More than three times a week Attends Episcopal Services: Never Active Member of Clubs or [...] Physician EKG interpretation can be found in [facility] ED BEDSIDE ULTRASOUND: Performed by ED Physician [...] PM PATIENT REFERRED TO: Tam Hughes DO [address] [facility] [address] Schedule an appointment as soon as possible [...] Emergency Medicine Provider Fahad Cates PA-C 06/19/24 1454 Cosigned by Cory Adame DO at 06/20/2024 12:32 AM EDT [facility] HospitalBanrqc73-73-8921 Physician Emergency department Note* Cory Adame DO - 06/19/2024 7:23 PM EDT Emergency Department Encounter [facility] ED Patient: Roro Valdivia : 1985 Date [...] ago he tried eating a hotdog and Maltese fries which instantly made pain significantly worse [...] for clarification.) Cory Adame DO [facility] Cory Adame DO 06/19/24 4[address] [employer] Phone: [phone] Hospital Discharge instructions* Discharge Instructions* Genie Pavon [...] Care Everywhere. * Chronic Pancreatitis Discharge Instructions (Maldivian) documented in this [facility]05-10-2025 Emergency department Note* Genie Pavon PA-C [...] Medical History: Diagnosis Date Addiction to drug ([facility]) (HCC) Alcohol abuse Alcohol withdrawal syndrome without complication ([facility]) 06/27/2022 Alcohol withdrawal with inpatient treatment, uncomplicated ([facility]) 03/15/2022 GERD (gastroesophageal reflux disease) History of pancreatitis 01/07/2023 Hypertension Pancreatitis Seizures ([facility]) SVT (supraventricular tachycardia) ([facility]) Tourette syndrome SURGICAL HISTORY Past Surgical History: [...] 0 min Stress: Stress Concern Present (02/05/2024) [employer] [place] [employer] - Occupational Stress Questionnaire Feeling of Stress : To some extent Social Connections: Socially Isolated (02/05/2024) Social Connection and Isolation Panel [NHANES] Frequency of Communication with Friends and Family: More than three times a week Frequency of Social Gatherings with Friends and Family: More than three times a week Attends Episcopal Services: Never Active Member of Clubs or [...] - Normal ETHANOL IN SER/PLAS <10 Narrative: VOICE PATHOLOGIST depression is seen >100 mg/dL. NOTE: This [...] week I Genie Pavon PA-C am the respiratory clinician of record. PROCEDURES: Unless otherwise noted below, none Procedures FINAL IMPRESSION 1. Alcohol-induced chronic pancreatitis (CMS/HCC) (HCC) DISPOSITION Discharge 06/18/2024 04:31:21 PM PATIENT REFERRED TO: [facility] ED [address] [facility] [address] Go to If symptoms worsen Tam Hughes DO [address] [place] [address] Schedule an appointment as soon as possible [...] Pavon PA-C 06/18/24 1706 documented in this [facility]05-10-2025 Physician Emergency department Note* Genie Pavon [...] Medical History: Diagnosis Date Addiction to drug ([facility]) ([facility]) Alcohol abuse Alcohol withdrawal syndrome without complication ([facility]) 06/27/2022 Alcohol withdrawal with inpatient treatment, uncomplicated ([facility]) 03/15/2022 GERD (gastroesophageal reflux disease) History of pancreatitis 01/07/2023 Hypertension Pancreatitis Seizures ([facility]) SVT (supraventricular tachycardia) ([facility]) Tourette syndrome SURGICAL HISTORY Past Surgical History: [...] 0 min Stress: Stress Concern Present (02/05/2024) [place] [employer] - Occupational Stress Questionnaire Feeling of Stress : To some extent Social Connections: Socially Isolated (02/05/2024) Social Connection and Isolation Panel [NHANES] Frequency of Communication with Friends and Family: More than three times a week Frequency of Social Gatherings with Friends and Family: More than three times a week Attends Episcopal Services: Never Active Member of Clubs or [...] - Normal ETHANOL IN SER/PLAS <10 Narrative: VOICE PATHOLOGIST depression is seen >100 mg/dL. NOTE: This [...] week I Genie Pavon PA-C am the respiratory clinician of record. PROCEDURES: Unless otherwise noted below, none Procedures FINAL IMPRESSION 1. Alcohol-induced chronic pancreatitis (CMS/HCC) (HCC) DISPOSITION Discharge 06/18/2024 04:31:21 PM PATIENT REFERRED TO: [facility] ED [address] [facility] [address] Go to If symptoms worsen Tam Hughes DO [address] [place] [phone] Schedule an appointment as soon as possible [...] Medicine Provider Genie Pavon PA-C 06/18/24 1706 [facility] HospitalOaimbt57-23-1853 NotePA request submitted by [facility] referrals, in review. [facility]05-05-2025 Hospital Discharge instructions* Discharge Instructions* Donald Hill Jr., DO - 06/13/2024 12:30 AM EDT Thank you for choosing [facility] and allowing me to take [...] sent through Care Everywhere. * Chronic Pancreatitis (Maldivian) * Gastritis Discharge Instructions (Maldivian) documented in this [facility]05-04-2025 Emergency department Note* Donald Hill Jr., [...] normal when he does have pancreatitis [SL] [facility] June 13, 2024 0028 Patient no vomiting [...] Medical History: Diagnosis Date Addiction to drug ([facility]) ([facility]) Alcohol abuse Alcohol withdrawal syndrome without complication ([facility]) 06/27/2022 Alcohol withdrawal with inpatient treatment, uncomplicated ([facility]) 03/15/2022 GERD (gastroesophageal reflux disease) History of pancreatitis 01/07/2023 Hypertension Pancreatitis Seizures ([facility]) SVT (supraventricular tachycardia) ([facility]) Tourette syndrome SURGICAL HISTORY Past Surgical History: [...] 0 min Stress: Stress Concern Present (02/05/2024) [place] [employer] - Occupational Stress Questionnaire Feeling of Stress : To some extent Social Connections: Socially Isolated (02/05/2024) Social Connection and Isolation Panel [NHANES] Frequency of Communication with Friends and Family: More than three times a week Frequency of Social Gatherings with Friends and Family: More than three times a week Attends Episcopal Services: Never Active Member of Clubs or [...] Abnormal ETHANOL IN SER/PLAS 43 (*) Narrative: VOICE PATHOLOGIST depression is seen >100 mg/dL. NOTE: This [...] AM PATIENT REFERRED TO: Tam Hughes DO [address] [facility] [phone] DISCHARGE MEDICATIONS: New Prescriptions SUCRALFATE (CARAFATE) 1 [...] Jr., DO 06/13/24 0031 documented in this [facility]05-04-2025 Physician Emergency department Note* Donald Hill [...] abdominal location Chronic pancreatitis, unspecified pancreatitis type ([facility]) Discussion/ MDM: Differential diagnosis includes but not [...] Medical History: Diagnosis Date Addiction to drug ([facility]) (HCC) Alcohol abuse Alcohol withdrawal syndrome without complication ([facility]) 06/27/2022 Alcohol withdrawal with inpatient treatment, uncomplicated ([facility]) 03/15/2022 GERD (gastroesophageal reflux disease) History of pancreatitis 01/07/2023 Hypertension Pancreatitis Seizures ([facility]) SVT (supraventricular tachycardia) ([facility]) Tourette syndrome SURGICAL HISTORY Past Surgical History: [...] 0 min Stress: Stress Concern Present (02/05/2024) [place] [employer] - Occupational Stress Questionnaire Feeling of Stress : To some extent Social Connections: Socially Isolated (02/05/2024) Social Connection and Isolation Panel [NHANES] Frequency of Communication with Friends and Family: More than three times a week Frequency of Social Gatherings with Friends and Family: More than three times a week Attends Episcopal Services: Never Active Member of Clubs or [...] Abnormal ETHANOL IN SER/PLAS 43 (*) Narrative: VOICE PATHOLOGIST depression is seen >100 mg/dL. NOTE: This [...] AM PATIENT REFERRED TO: Tam Hughes DO [address] [facility] [phone] DISCHARGE MEDICATIONS: New Prescriptions SUCRALFATE (CARAFATE) 1 [...] Medicine Provider Donald Hill Jr., 06/13/24 0031 [facility] HospitalTozkhd30-30-7935 Emergency department Note* Josseline Weber MD - [...] Medical History: Diagnosis Date Addiction to drug ([facility]) ([facility]) Alcohol abuse Alcohol withdrawal syndrome without complication ([facility]) 06/27/2022 Alcohol withdrawal with inpatient treatment, uncomplicated ([facility]) 03/15/2022 GERD (gastroesophageal reflux disease) History of pancreatitis 01/07/2023 Hypertension Pancreatitis Seizures ([facility]) SVT (supraventricular tachycardia) ([facility]) Tourette syndrome SURGICAL HISTORY Past Surgical History: [...] 0 min Stress: Stress Concern Present (02/05/2024) [place] [employer] - Occupational Stress Questionnaire Feeling of Stress : To some extent Social Connections: Socially Isolated (02/05/2024) Social Connection and Isolation Panel [NHANES] Frequency of Communication with Friends and Family: More than three times a week Frequency of Social Gatherings with Friends and Family: More than three times a week Attends Episcopal Services: Never Active Member of Clubs or [...] PM PATIENT REFERRED TO: Tam Hughes DO [address] [facility] [address] Call in 3 days DISCHARGE [...] gait. Times are approximate. documented in this [facility]04-26-2025 Emergency department Triage note* Roro Macias RN - 06/04/2024 3:35 PM EDT Pt seen recently, dx pancreatitis, sts sx ongoing with abd pain that worsens with eating/drinking, N/V. Referred to ER by Negative resp distress, positive full sentences, negative diaphoresis, positive steady gait. Times are approximate. [facility] HospitalCdlulf64-31-9884 Physician Emergency department Note* Josseline Weber MD [...] Medical History: Diagnosis Date Addiction to drug ([facility]) ([facility]) Alcohol abuse Alcohol withdrawal syndrome without complication ([facility]) 06/27/2022 Alcohol withdrawal with inpatient treatment, uncomplicated ([facility]) 03/15/2022 GERD (gastroesophageal reflux disease) History of pancreatitis 01/07/2023 Hypertension Pancreatitis Seizures ([facility]) SVT (supraventricular tachycardia) ([facility]) Tourette syndrome SURGICAL HISTORY Past Surgical History: [...] 0 min Stress: Stress Concern Present (02/05/2024) [place] [employer] - Occupational Stress Questionnaire Feeling of Stress : To some extent Social Connections: Socially Isolated (02/05/2024) Social Connection and Isolation Panel [NHANES] Frequency of Communication with Friends and Family: More than three times a week Frequency of Social Gatherings with Friends and Family: More than three times a week Attends Episcopal Services: Never Active Member of Clubs or [...] FINAL IMPRESSION 1. Alcohol-induced chronic pancreatitis (CMS/HCC) ([facility]) 2. Pain of upper abdomen 3. Acute on chronic pancreatitis (CMS/HCC) ([facility]) DISPOSITION Discharge 06/04/2024 05:49:26 PM PATIENT REFERRED TO: Tam Hughes DO [address] [facility] [phone] Call in 3 days DISCHARGE MEDICATIONS: Current [...] Emergency Medicine Provider Josseline Weber MD 06/04/241750 [facility] HospitalRxknly35-68-0613 Telephone encounter Note* Telephone Encounter - Erin [...] if symptoms worsen, verbalized understanding. Seema notified. [facility] HospitalEdepow23-62-1713 Miscellaneous Notes* Telephone Encounter - Erin Barbour [...] used: Abdominal Pain -ADULT-AH documented in this encounterSSt. Anthony's HospitalTjzkga25-63-9545 Telephone encounter Note* Telephone Encounter - Mariely [...] happened once.) Protocols used: Abdominal Pain -ADULT-AH [facility] HospitalVpyzlx03-35-6616 History of Present illness Narrative* Seema Hartley APRN - [employer] - 06/01/2024 1:00 PM EDT Images from the original note were not included. [facility] GASTROENTEROLOGY - [address] [facility] [address] Dept: [phone] Dept Loc: [phone] Visit type: New Reason for Visit: New Patient (Acute on chronic pancreatitis (CMS/HCC) (HCC)) PCP: Tam Hughes, DO Assessment and Plan Diagnosis Plan 1. Acute on chronic pancreatitis (CMS/HCC) (HCC) [facility] Gastroenterology --This patient is referred by Mattie [...] recurrent major depressive disorder, without psychotic features ([facility]) 08/11/2023 Priority: Medium Severe alcohol use disorder [...] disease) 06/06/2018 Hypertension 06/06/2018 SVT (supraventricular tachycardia) ([facility]) 06/06/2018 Tourette syndrome 06/06/2018 Alcohol induced acute pancreatitis without necrosis or infection 03/29/2018 Past Medical History: Past Medical History: Diagnosis Date Addiction to drug ([facility]/HCC) (HCC) Alcohol abuse Alcohol withdrawal syndrome without complication ([facility]) 06/27/2022 Alcohol withdrawal with inpatient treatment, uncomplicated ([facility]) 03/15/2022 GERD (gastroesophageal reflux disease) History of pancreatitis 01/07/2023 Hypertension Pancreatitis Seizures ([facility]) SVT (supraventricular tachycardia) ([facility]) Tourette syndrome Past Surgical History: Past Surgical [...] Imaging/Testing: [facility] 1985 [id number] Exam Date/Time: 05/30/2024 22:45 Procedure: CT ABDOMEN [...] SALAS 1:07 PM 06/01/24 documented in this [facility]04-23-2025 Instructions* Patient Instructions* JOSÉ ANTONIO Harrison CNP - 06/01/2024 1:00 PM EDT --complete alcohol cessation --tobacco cessation --MRI abdomen --blood work to be completed --follow up after above is completed * Attachments The following attachments cannot be sent through Care Everywhere. * Chronic Pancreatitis (Maldivian) documented in this [facility]04-21-2025 Hospital Discharge instructions* Discharge Instructions* Mattie Durbin DO - 05/30/2024 11:58 PM EDT Take medications as prescribed for your chronic pancreatitis pain. Follow-up with GI for further management. Return to the ER for worsening symptoms or vomiting. * Attachments The following attachments cannot be sent through Care Everywhere. * Pancreatitis Discharge Instructions (Maldivian) documented in this [facility]04-21-2025 Emergency department Note* Mattie Durbin DO [...] Medical History: Diagnosis Date Addiction to drug ([facility]/H[facility]) (HCC) Alcohol abuse Alcohol withdrawal syndrome without complication ([facility]) 06/27/2022 Alcohol withdrawal with inpatient treatment, uncomplicated ([facility]) 03/15/2022 GERD (gastroesophageal reflux disease) History of pancreatitis 01/07/2023 Hypertension Pancreatitis Seizures ([facility]) SVT (supraventricular tachycardia) (HCC) Tourette syndrome SURGICAL [...] 0 min Stress: Stress Concern Present (02/05/2024) [place] [employer] - Occupational Stress Questionnaire Feeling of Stress : To some extent Social Connections: Socially Isolated (02/05/2024) Social Connection and Isolation Panel [NHANES] Frequency of Communication with Friends and Family: More than three times a week Frequency of Social Gatherings with Friends and Family: More than three times a week Attends Episcopal Services: Never Active Member of Clubs or [...] Culture. Procedure Abnormality Status --------- ------ Complete Urinalysis[[id number]] Abnormal Final result Please view results for [...] 05/31/24 0200 Acute on chronic pancreatitis (CMS/HCC) ([facility]) The patient presented with chief complaint of [...] IMPRESSION 1. Acute on chronic pancreatitis (CMS/HCC) ([facility]) DISPOSITION Discharge 05/30/2024 11:48:08 PM PATIENT REFERRED TO: [facility] Gastroenterology - [address] [facility] [address] DISCHARGE MEDICATIONS: Discharge Medication List as of [...] Denies N/V/D, fevers, dysuria. documented in this encounterSSt. Anthony's HospitalSewxvw28-35-0553 Emergency department Triage note* Sully Choi RN - 05/30/2024 9:42 PM EDT Resp even and unlabored. Able to speak in full sentences. Ambulates without difficulty. Pt c/o leftflank pain x 5days. Denies N/V/D, fevers, dysuria. [facility] HospitalStbdgb21-07-8843 Physician Emergency department Note* Mattie Durbin DO [...] Medical History: Diagnosis Date Addiction to drug ([facility]) ([facility]) Alcohol abuse Alcohol withdrawal syndrome without complication ([facility]) 06/27/2022 Alcohol withdrawal with inpatient treatment, uncomplicated ([facility]) 03/15/2022 GERD (gastroesophageal reflux disease) History of pancreatitis 01/07/2023 Hypertension Pancreatitis Seizures ([facility]) SVT (supraventricular tachycardia) ([facility]) Tourette syndrome SURGICAL HISTORY Past Surgical History: [...] 0 min Stress: Stress Concern Present (02/05/2024) [place] [employer] - Occupational Stress Questionnaire Feeling of Stress : To some extent Social Connections: Socially Isolated (02/05/2024) Social Connection and Isolation Panel [NHANES] Frequency of Communication with Friends and Family: More than three times a week Frequency of Social Gatherings with Friends and Family: More than three times a week Attends Episcopal Services: Never Active Member of Clubs or [...] Culture. Procedure Abnormality Status --------- ------ Complete Urinalysis[[id number]] Abnormal Final result Please view results for [...] IMPRESSION 1. Acute on chronic pancreatitis (CMS/HCC) ([facility]) DISPOSITION Discharge 05/30/2024 11:48:08 PM PATIENT REFERRED TO: [facility] Gastroenterology - [address] [address] DISCHARGE MEDICATIONS: Discharge Medication List [...] Medicine Provider Mattie Durbin DO 05/31/24 [address] [place] [id number] Emergency department Note* Martine Guzman RN - 05/22/2024 2:03 PM EDT Abdominal pain Pancreatitis was seen 3 days ago and was told if pain got worse to come back. Now also having chest pain and kidney pain [facility] HospitalMvkmgx96-36-0236 Emergency department Note* Judith Valles PA-C - 05/22/2024 2:03 PM EDT [facility] ED eMERGENCY dEPARTMENT eNCOUnter Pt Name: Roro [...] a day freestanding emergency department somewhere in [place] 3 days ago.He states he was told [...] Medical History: Diagnosis Date Addiction to drug ([facility]) ([facility]) Alcohol abuse Alcohol withdrawal syndrome without complication ([facility]) 06/27/2022 Alcohol withdrawal with inpatient treatment, uncomplicated ([facility]) 03/15/2022 GERD (gastroesophageal reflux disease) History of pancreatitis 01/07/2023 Hypertension Pancreatitis Seizures ([facility]) SVT (supraventricular tachycardia) ([facility]) Tourette syndrome SURGICALHISTORY Past Surgical History: Procedure [...] 0 min Stress: Stress Concern Present (02/05/2024) [place] [employer] - Occupational Stress Questionnaire Feeling of Stress : To some extent Social Connections: Socially Isolated (02/05/2024) Social Connection and Isolation Panel [NHANES] Frequency of Communication with Friends and Family: More than three times a week Frequency of Social Gatherings with Friends and Family: More than three times a week Attends Episcopal Services: Never Active Member of Clubs or [...] Culture. Procedure Abnormality Status --------- ------ Complete Urinalysis[[id number]] Please view results for these tests on [...] was seen at a freestanding ED in [place] 3 days ago. He has a history [...] medical records reviewed including ED visit to [facility] on 05/07/[address] Lyons for alcohol [...] Discharge 05/22/2024 05:08:12 PM PATIENT REFERRED TO: [facility] Gastroenterology [address] [address] Schedule an appointment as soon as possible for a visit in 3 days DISCHARGE MEDICATIONS: New Prescriptions DICYCLOMINE (BENTYL) 20 MG TABLET Take 1 tablet (20 mg) by mouth 2 times daily for 10 days. PROMETHAZINE (PHENERGAN) 25 MG TABLET Take 1 tablet (25 mg) by mouth every 6 hours as needed for nausea or vomiting for up to 7 days. @[facility]([id number]:LAST:1)@ (Please note: Portions of this note were [...] pain and kidney pain documented in this [place] [id number] Physician Emergency department Note* Judith Valles PA-C - 05/22/2024 2:03 PM EDT [facility] ED eMERGENCY dEPARTMENT eNCOUnter Pt Name: Roro [...] a day freestanding emergency department somewhere in [place] 3 days ago.He states he was told [...] Medical History: Diagnosis Date Addiction to drug ([facility]) ([facility]) Alcohol abuse Alcohol withdrawal syndrome without complication ([facility]) 06/27/2022 Alcohol withdrawal with inpatient treatment, uncomplicated ([facility]) 03/15/2022 GERD (gastroesophageal reflux disease) History of pancreatitis 01/07/2023 Hypertension Pancreatitis Seizures ([facility]) SVT (supraventricular tachycardia) ([facility]) Tourette syndrome SURGICALHISTORY Past Surgical History: Procedure [...] 0 min Stress: Stress Concern Present (02/05/2024) [place] [employer] - Occupational Stress Questionnaire Feeling of Stress : To some extent Social Connections: Socially Isolated (02/05/2024) Social Connection and Isolation Panel [NHANES] Frequency of Communication with Friends and Family: More than three times a week Frequency of Social Gatherings with Friends and Family: More than three times a week Attends Episcopal Services: Never Active Member of Clubs or [...] Culture. Procedure Abnormality Status --------- ------ Complete Urinalysis[[id number]] Please view results for these tests on [...] was seen at a freestanding ED in [place] 3 days ago. He has a history [...] medical records reviewed including ED visit to [facility] on 05/07/[address] Lyons for alcohol [...] Discharge 05/22/2024 05:08:12 PM PATIENT REFERRED TO: [facility] Gastroenterology [address] [address] Schedule an appointment as soon as possible for a visit in 3 days DISCHARGE MEDICATIONS: New Prescriptions DICYCLOMINE (BENTYL) 20 MG TABLET Take 1 tablet (20 mg) by mouth 2 times daily for 10 days. PROMETHAZINE (PHENERGAN) 25 MG TABLET Take 1 tablet (25 mg) by mouth every 6 hours as needed for nausea or vomiting for up to 7 days. @[facility]([id number]:LAST:1)@ (Please note: Portions of this note were completed with a voice recognition program. Efforts were made to edit thedictations but occasionally words and phrases are mis-transcribed.) Form [id number].[id number] Judith Valles PA-C (electronically signed) Emergency Medicine Provider Judith Valles PA-C 05/22/24 171 [id number] Telephone encounter Note* Telephone Encounter - Roma Mckenzie RN - 05/21/2024 4:17 PM EDT This [facility] RN called patient for follow up, voicemail received, message left. [address]Niipjp86-37-6033 Miscellaneous Notes* Telephone Encounter - Roma Mckenzie RN - 05/21/2024 4:17 PM EDT This [facility] RN called patient for follow up, voicemail received, message left. documented in this encounterSLisa [place] [id number] Telephone encounter Note* Telephone Encounter - Roma Mckenzie RN - 05/16/2024 12:15 PM EDT This [facility] RN called patient for follow up, voicemail received, message left. [address]Tandql92-81-5182 Miscellaneous Notes* Telephone Encounter - Roma Mckenzie RN - 05/16/2024 12:15 PM EDT This [facility] RN called patient for follow up, voicemail received, message left. documented in this encounterSSt. Anthony's HospitalXuycok00-57-3112 Emergency department Note* Ana Wang RN - 05/07/2024 4:26 PM EDT Pt states he drank alcohol 3 days ago and then drank this morning. [facility] HospitalXjoceb93-14-0145 Emergency department Note* Ana Wang RN - [...] otherwise acutely negative except as in the [place]. 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/HCC) (HCC) Alcohol abuse Alcohol withdrawal syndrome without complication ([facility]) 06/27/2022 Alcohol withdrawal with inpatient treatment, uncomplicated ([facility]) 03/15/2022 GERD (gastroesophageal reflux disease) History of pancreatitis 01/07/2023 Hypertension Pancreatitis Seizures ([facility]) SVT (supraventricular tachycardia) ([facility]) Tourette syndrome SURGICAL HISTORY Past Surgical History: [...] 0 min Stress: Stress Concern Present (02/05/2024) [place] [employer] - Occupational Stress Questionnaire Feeling of Stress : To some extent Social Connections: Socially Isolated (02/05/2024) Social Connection and Isolation Panel [NHANES] Frequency of Communication with Friends and Family: More than three times a week Frequency of Social Gatherings with Friends and Family: More than three times a week Attends Episcopal Services: Never Active Member of Clubs or [...] dc PATIENT REFERRED TO: Tam Hughes DO [address] [place] [address] Schedule an appointment as soon as possible [...] Markie Lyons DO 05/07/241817 documented in this [facility]03-29-2025 Physician Emergency department Note* Markie Lyons [...] otherwise acutely negative except as in the [place]. PAST MEDICAL HISTORY Past Medical History: Diagnosis [...] 0 min Stress: Stress Concern Present (02/05/2024) [place] [employer] - Occupational Stress Questionnaire Feeling of Stress : To some extent Social Connections: Socially Isolated (02/05/2024) Social Connection and Isolation Panel [NHANES] Frequency of Communication with Friends and Family: More than three times a week Frequency of Social Gatherings with Friends and Family: More than three times a week Attends Episcopal Services: Never Active Member of Clubs or [...] dc PATIENT REFERRED TO: Tam Hughes DO [address] [place] [address] Schedule an appointment as soon as possible [...] Emergency Medicine Provider Markie Lyons DO 05[birth year]07/[birth year] [facility] HospitalPxtyux25-57-3289 Telephone encounter Note* Telephone Encounter - Roma Mckenzie RN - 04/26/2024 2:16 PM EDT This [facility] RN called patient for follow up, voicemail received, message left. [address]odzlz54-92-7435 Miscellaneous Notes* Telephone Encounter - Roma Mckenzie RN - 04/26/2024 2:16 PM EDT This [facility] RN called patient for follow up, voicemail received, message left. documented in this [address]15-2025 Telephone encounter Note* Telephone Encounter - Roma Mckenzie RN - 04/23/2024 12:42 PM EDT This [facility] RN called patient for follow up phone call, voicemail received, message left. [address]Ngplgp99-79-9149 Miscellaneous Notes* Telephone Encounter - Roma Mckenzie RN - 04/23/2024 12:42 PM EDT This [facility] RN called patient for follow up phone call, voicemail received, message left. documented in this [place] [address]-14-2025 Telephone encounter Note* Telephone Encounter - Seema Sumner LPN - 04/22/2024 9:22 AM EDT Unable to contact patient X2 [address]Nfeffw40-03-0830 Miscellaneous Notes* Telephone Encounter - Seema Sumner LPN - 04/22/2024 9:22 AM EDT Unable to contact patient X2 * Telephone Encounter - Seema Sumner LPN - 04/21/2024 1:13 PM EDT S: Patient admitted to: [facility] 04/16/24 B: Discharged on : 04/20/24 A: Hospital follow up call initiated to discuss any medication changes, follow up appointments and discharge instructions: Acute recurrent pancreatitis R: No contact x 1 at : [phone] documented in this [facility]SSt. [facility] HospitalMlzidk59-66-6902 Telephone encounter Note* Telephone Encounter - Seema Sumner LPN - 04/21/2024 1:13 PM EDT S: Patient admitted to: [facility] 04/16/24 B: Discharged on : 04/20/24 A: Hospital follow up call initiated to discuss any medication changes, follow up appointments and discharge instructions: Acute recurrent pancreatitis R: No contact x 1 at : [phone] [facility] HospitalEtohhc35-37-3631 Nurse Note* Jake Blair RN - 04/20/2024 2:17 PM EDT Discharge instructions reviewed with patient. Patient did not have any further concerns at this time. [facility] HospitalLqgayl02-96-1607 Nurse Note* Jake Blair RN - 04/20/2024 [...] RN - 04/18/2024 12:21 PM EDT This [facility] RN saw patient on consult to provide [...] He refuses residential care and was at [facility] in the past. Patient is interested in Behavioral Health IOP. We reviewed the handout, and I circled the phone number. States he is willing to go 3 x week. Either staff or patient can call [phone] to schedule after discharge date is confirmed. Roro is an established patient at [facility] and agreeable to follow up. documented in this [facility]03-12-2025 Note* Care Coordination - VANITA Whitaker [...] encouraged to call to set up appt. [facility] HospitalCdyirx64-07-2837 Note* Care Coordination - VANITA Whitaker - [...] encouraged to call to set up appt. [facility] HospitalUkecvy55-78-6184 Miscellaneous Notes* Care Coordination - VANITA Whitaker [...] Social work has requested for addition home health care worker consult to provide patient withresources. Social work will continue to follow. documented in this [facility]03-12-2025 Hospital Discharge instructions* Discharge Instructions* Louis Alexandre MD - 04/20/2024 10:57 AM EDT Please call [phone] to schedule appointment for the [facility] IOP program in [place] documented in this [address]12-2025 History of Present illness Narrative* Louis [...] 0 min Stress: Stress Concern Present (02/05/2024) [place] [employer] - Occupational Stress Questionnaire Feeling of Stress : To some extent Social Connections: Socially Isolated (02/05/2024) Social Connection and Isolation Panel [NHANES] Frequency of Communication with Friends and Family: More than three times a week Frequency of Social Gatherings with Friends and Family: More than three times a week Attends Episcopal Services: Never Active Member of Clubs or [...] Patient will be provided number for the [facility] program to schedule appointment for IOP Louis Alexandre MD Addiction Medicine 04/20/2024 at 10:53 AM --50-- minutes were spent reviewing the patient's records, evaluating the patient, entering orders,coordinating care with the treatment team, and creating a progress note. Narrative portions of the note are written utilizing QUALIA (formerly known as LocalResponse) software. While every effort is made todictate clearly and proofread, errors in the dictation may still occur. If there are any questions regarding the dictation please do not hesitate to contact the author. * Ron Fonseca, JOSÉ ANTONIO - COATER HAND - 04/19/2024 11:09 AM EDT Addiction Medicine [...] symptoms. Medical stabilization. Labs/tests/tasks to review: None. Provider Relations Consultant recommendations: None. Remaining medical management per primary team. Will follow. JOSÉ ANTONIO Jiménez CNP Addiction Medicine 04/19/2024 at 11:09 AM Note: Narrative portions of note written using QUALIA (formerly known as LocalResponse) dictation software. Efforts are made to dictate clearly and proofread but errors in dictation still may occur. Please reach out to author with any clarifying questions. * Nevaeh Howard DO - 04/19/2024 9:49 AM EDT Hospitalist Progress Note 04/19/2024 Subjective: Admit Date: 04/16/2024 PCP: Tam Hughes DO Room#: [id number] A BRIEF HOSPITAL COURSE: Per previous hospitalist's [...] Medical History: Diagnosis Date Addiction to drug ([facility]) (HCC) Alcohol abuse Alcohol withdrawal syndrome without complication ([facility]) 06/27/2022 Alcohol withdrawal with inpatient treatment, uncomplicated ([facility]) 03/15/2022 GERD (gastroesophageal reflux disease) History of pancreatitis 01/07/2023 Hypertension Pancreatitis Seizures ([facility]) SVT (supraventricular tachycardia) ([facility]) Tourette syndrome LABS: CBC: Recent Labs 04/17/2433804/18/2452604/19/24 [...] DO Division of Hospitalist Medicine Acute care [facility] * Summer Gómez - 04/18/2024 9:34 AM EDT Nutrition rescreen completed. Chart reviewed. Patient's diet advanced, monitor tolerance to diet. Patient to be monitored and followed by the diet neurophysiological technician. Dietitian available upon request. RALPH Everett * Gokul Sood DO - 04/18/2024 9:08 AM EDT Hospitalist Progress Note 04/18/2024 Subjective: Admit Date: 04/16/2024 PCP: Tam Hughes DO Room#: W7-727/W7-500 A BRIEF HOSPITAL COURSE: Roro is a [...] Medical History: Diagnosis Date Addiction to drug ([facility]) (HCC) Alcohol abuse Alcohol withdrawal syndrome without complication ([facility]) 06/27/2022 Alcohol withdrawal with inpatient treatment, uncomplicated ([facility]) 03/15/2022 GERD (gastroesophageal reflux disease) History of pancreatitis 01/07/2023 Hypertension Pancreatitis Seizures ([facility]) SVT (supraventricular tachycardia) ([facility]) Tourette syndrome LABS: CBC: Recent Labs 04/16/24 [...] Infante DO [place] Division of Hospitalist Medicine [facility] * Ron Fonseca, DIRECTOR OF AUTOMATION - COATER HAND - 04/18/2024 8:20 AM EDT Addiction Medicine [...] symptoms. Medical stabilization. Labs/tests/tasks to review: None. Provider Relations Consultant recommendations: None. Remaining medical management per primary team. Will follow. JOSÉ ANTONIO Jiménez CNP Addiction Medicine 04/18/2024 at 8:20 AM Note: Narrative portions of note written using QUALIA (formerly known as LocalResponse) dictation software. Efforts are made to dictate clearly and proofread but errors in dictation still may occur. Please reach out to author with any clarifying questions. * Gokul Barrie, - 04/17/2024 9:28 AM EDT Hospitalist Progress Note 04/17/2024 Subjective: Admit Date: 04/16/2024 PCP: Tam Hughes DO Room#: W7-547/W7-062 A BRIEF HOSPITAL COURSE: Roro is a [...] 75 mL/hr, Last Rate: 75 mL/hr (04/17/24 1182) Assessment Data: (CAT1) Reviewed 3 or more [...] Gokul Sood DO Division of Hospitalist Medicine [facility] documented in this [facility]03-12-2025 Hospital course Narrative* Nevaeh Howard DO [...] Medical History: Diagnosis Date Addiction to drug ([facility]) (HCC) Alcohol abuse Alcohol withdrawal syndrome without complication ([facility]) 06/27/2022 Alcohol withdrawal with inpatient treatment, uncomplicated ([facility]) 03/15/2022 GERD (gastroesophageal reflux disease) History of pancreatitis 01/07/2023 Hypertension Pancreatitis Seizures ([facility]) SVT (supraventricular tachycardia) ([facility]) Tourette syndrome Procedures: None Hospital Course: See above. See discharge diagnoses list above and medication adjustments below in med rec.The patient is discharged in improved and stable condition. Consults: IP CONSULT TO ADDICTION MEDICINE IP CONSULT TO ADDICTION PORTFOLIO MANAGER Discharge Instructions: Diet: Dietary Orders (From admission, [...] Your Medications These medications were sent to [facility] - [place], [place] - [address] [facility] [address] [facility] [facility] [place] [address] acetaminophen 325 MG tablet calcium carbonate 500 MG chewable tablet senna-docusate sodium 8.6-50 MG tablet Recommended Follow-up: No follow-up provider specified. Complexity of Follow up: [] Moderate Complexity: follow up within 7-14 calendar days (03775) [x] Severe Complexity: follow up within 7 calendar days (52720) Follow up Testing, Pending results or Referrals [...] Nevaeh Howard DO Division of Hospitalist Medicine [facility] 04/20/2024, 2:12 PM documented in this [facility]03-12-2025 [facility] 04-19-2024 Nurse Note* Nevaeh Cortes RN - 04/19/2024 8:25 PM EDT Pt c/o pAIN IN ABD AND RATES AT 09/18. Pt medicated with dilaudid 0.5mg IV per PRN order. Pt reportsmedication effective [facility] HospitalAjxqdg51-65-0775 Note* Care Coordination - Meron Landry RN - 04/18/2024 2:16 PM EDT PT HERE FOR ALCOHOL DETOX, + COVID. CURRENTLY ON RA. PO PHENOBARB TAPER. ADDICTION MED FOLLOWING. ANTICIPATE DISCHARGE TO HOME WITH MOM AND NO NEEDS. [facility] HospitalXcwlvr95-04-4852 Note* Care Coordination - Meron Landry RN - 04/18/2024 2:16 PM EDT PT HERE FOR ALCOHOL DETOX, + COVID. CURRENTLY ON RA. PO PHENOBARB TAPER. ADDICTION MED FOLLOWING. ANTICIPATE DISCHARGE TO HOME WITH MOM AND NO NEEDS. [facility] HospitalEltagx12-91-4450 Nurse Note* Juany Rich RN - 04/18/2024 12:21 PM EDT This [facility] RN saw patient on consult to provide [...] He refuses residential care and was at [facility] in the past. Patient is interested in Behavioral Health IOP. We reviewed the handout, and I circled the phone number. States he is willing to go 3 x week. Either staff or patient can call [phone] to schedule after discharge date is confirmed. Ernst dey is an established patient at [facility] and agreeable to follow up. [facility] HospitalHadijp49-43-5572 Note* Care Coordination - VANITA Whitaker - 04/18/2024 10:10 AM EDT Social work review of chart. Patient being followed by addiction medicine. On admission- patient wanting detox. Social work has requested for addition home health care worker consult to provide patient withresources. Social work will continue to follow. [facility] HospitalPokdpi86-41-6090 Note* Care Coordination - VANITA Whitaker - 04/18/2024 10:10 AM EDT Social work review of chart. Patient being followed by addiction medicine. On admission- patient wanting detox. Social work has requested for addition home health care worker consult to provide patient withresources. Social work will continue to follow. [facility] HospitalXawqdl09-61-3613 Consult note* Stone Ramsey MD - 04/17/2024 12:01 PM EDT Associated Order(s): IP CONSULT TO ADDICTION MEDICINE [facility] Consult service H&P Admit Date: 04/16/2024 Primary [...] Medical History: Diagnosis Date Addiction to drug ([facility]) ([facility]) Alcohol abuse Alcohol withdrawal syndrome without complication ([facility]) 06/27/2022 Alcohol withdrawal with inpatient treatment, uncomplicated ([facility]) 03/15/2022 GERD (gastroesophageal reflux disease) History of pancreatitis 01/07/2023 Hypertension Pancreatitis Seizures ([facility]) SVT (supraventricular tachycardia) ([facility]) Tourette syndrome Past Surgical History: Procedure Laterality [...] 0 min Stress: Stress Concern Present (02/05/2024) [place] [employer] - Occupational Stress Questionnaire Feeling of Stress : To some extent Social Connections: Socially Isolated (02/05/2024) Social Connection and Isolation Panel [NHANES] Frequency of Communication with Friends and Family: More than three times a week Frequency of Social Gatherings with Friends and Family: More than three times a week Attends Episcopal Services: Never Active Member of Clubs or [...] LORazepam, LORazepam, naloxone, ondansetron, potassium chloride CR @[id number]@ Plan 1. Alcohol use disorder severe with [...] MD Addiction Medicine 04/17/2024 at 12:02 PM [employer] Phone: 1(271) 504-542003-09-2025 Consult note* Stone Ramsey MD - 04/17/2024 12:01 PM EDTAssociated Order(s): IP CONSULT TO ADDICTION MEDICINE [facility] Consult service H&P Admit Date: 04/16/2024 Primary [...] Medical History: Diagnosis Date Addiction to drug ([facility]) ([facility]) Alcohol abuse Alcohol withdrawal syndrome without complication ([facility]) 06/27/2022 Alcohol withdrawal with inpatient treatment, uncomplicated ([facility]) 03/15/2022 GERD (gastroesophageal reflux disease) History of pancreatitis 01/07/2023 Hypertension Pancreatitis Seizures ([facility]) SVT (supraventricular tachycardia) ([facility]) Tourette syndrome Past Surgical History: Procedure Laterality [...] 0 min Stress: Stress Concern Present (02/05/2024) [place] [employer] - Occupational Stress Questionnaire Feeling of Stress : To some extent Social Connections: Socially Isolated (02/05/2024) Social Connection and Isolation Panel [NHANES] Frequency of Communication with Friends and Family: More than three times a week Frequency of Social Gatherings with Friends and Family: More than three times a week Attends Episcopal Services: Never Active Member of Clubs or [...] LORazepam, LORazepam, naloxone, ondansetron, potassium chloride CR @[email or web address] Plan 1. Alcohol use disorder severe with [...] 04/17/2024 at 12:02 PM documented in this [facility]03-08-2025 History and physical note* Ant Carty [...] 0 min Stress: Stress Concern Present (02/05/2024) [place] [employer] - Occupational Stress Questionnaire Feeling of Stress : To some extent Social Connections: Socially Isolated (02/05/2024) Social Connection and Isolation Panel [NHANES] Frequency of Communication with Friends and Family: More than three times a week Frequency of Social Gatherings with Friends and Family: More than three times a week Attends Episcopal Services: Never Active Member of Clubs or [...] symptomatic relief -As needed Ativan per [facility] protocol -IVF hydration -Trend lactic [...] MD Division of Hospital Medicine Inpatient Medical Services/[facility] [employer] Phone: 1(273) 170-818003-08-2025 [facility]03-08-2025 History and physical note* Ant Carty MD [...] 0 min Stress: Stress Concern Present (02/05/2024) [place] [employer] - Occupational Stress Questionnaire Feeling of Stress : To some extent Social Connections: Socially Isolated (02/05/2024) Social Connection and Isolation Panel [NHANES] Frequency of Communication with Friends and Family: More than three times a week Frequency of Social Gatherings with Friends and Family: More than three times a week Attends Episcopal Services: Never Active Member of Clubs or [...] symptomatic relief -As needed Ativan per [facility] protocol -IVF hydration -Trend lactic [...] MD Division of Hospital Medicine Inpatient Medical Services/[facility] documented in this [facility]03-08-2025 Emergency department Note* Nancy Sultana DO - 04/16/2024 4:14 PM EST Emergency Department Encounter [facility] EMERGENCY DEPT Patient: Roro Valdivia : [...] for clarification.) Nancy Sultana DO Acute Care [place] Nancy Sultana DO 04/18/24 1257 * Adrian [...] Medical History: Diagnosis Date Addiction to drug ([facility]) (HCC) Alcohol abuse Alcohol withdrawal syndrome without complication ([facility]) 06/27/2022 Alcohol withdrawal with inpatient treatment, uncomplicated ([facility]) 03/15/2022 GERD (gastroesophageal reflux disease) History of pancreatitis 01/07/2023 Hypertension Pancreatitis Seizures ([facility]) SVT (supraventricular tachycardia) ([facility]) Tourette syndrome SURGICAL HISTORY Past Surgical History: [...] 0 min Stress: Stress Concern Present (02/05/2024) [place] [employer] - Occupational Stress Questionnaire Feeling of Stress : To some extent Social Connections: Socially Isolated (02/05/2024) Social Connection and Isolation Panel [NHANES] Frequency of Communication with Friends and Family: More than three times a week Frequency of Social Gatherings with Friends and Family: More than three times a week Attends Episcopal Services: Never Active Member of Clubs or [...] Abnormal ETHANOL IN SER/PLAS 331 (*) Narrative: VOICE PATHOLOGIST depression is seen >100 mg/dL. NOTE: This [...] 04/18/2024 1:05 PM EDT documented in this [facility]03-08-2025 Physician Emergency department Note* Nancy Sultana DO - 04/16/2024 4:14 PM EST Emergency Department Encounter [facility] EMERGENCY DEPT Patient: Roro Valdivia : [...] [employer] Nancy Sultana DO 04/18/24 1257 [employer] Phone: 1(533) 468-898203-08-2025 Physician Emergency department Note* Adrian Silva MD [...] Medical History: Diagnosis Date Addiction to drug ([facility]) (HCC) Alcohol abuse Alcohol withdrawal syndrome without complication ([facility]) 06/27/2022 Alcohol withdrawal with inpatient treatment, uncomplicated ([facility]) 03/15/2022 GERD (gastroesophageal reflux disease) History of pancreatitis 01/07/2023 Hypertension Pancreatitis Seizures ([facility]) SVT (supraventricular tachycardia) ([facility]) Tourette syndrome SURGICAL HISTORY Past Surgical History: [...] 0 min Stress: Stress Concern Present (02/05/2024) [place] [employer] - Occupational Stress Questionnaire Feeling of Stress : To some extent Social Connections: Socially Isolated (02/05/2024) Social Connection and Isolation Panel [NHANES] Frequency of Communication with Friends and Family: More than three times a week Frequency of Social Gatherings with Friends and Family: More than three times a week Attends Episcopal Services: Never Active Member of Clubs or [...] Abnormal ETHANOL IN SER/PLAS 331 (*) Narrative: VOICE PATHOLOGIST depression is seen >100 mg/dL. NOTE: This [...] Sultana DO at 04/18/2024 1:05 PM EDT [facility] HospitalDaidex91-41-4607 [facility]02-26-2025 Hospital course Narrative* Paulino Shelton MD - [...] Medical History: Diagnosis Date Addiction to drug ([facility]) ([facility]) Alcohol abuse Alcohol withdrawal syndrome without complication ([facility]) 06/27/2022 Alcohol withdrawal with inpatient treatment, uncomplicated ([facility]) 03/15/2022 GERD (gastroesophageal reflux disease) History of pancreatitis 01/07/2023 Hypertension Pancreatitis Seizures ([facility]) SVT (supraventricular tachycardia) ([facility]) Tourette syndrome Procedures: None Hospital Course: See [...] Complexity: follow up within 7-14 calendar days (42248) [x] Severe Complexity: follow up within 7 calendar days (35414) Follow up Testing, Pending results or Referrals [...] solutions 04/06/2024, 1:16 PM documented in this [facility]02-26-2025 History of Present illness Narrative* Dov [...] 12 step meeting attendance. Patient returned to [facility] and self discontinued suboxone Follow up plan for addiction management discussed with patient: Patient does not wish to discuss MAT or aftercare. States he will call his addiction provider at [facility] to schedule follow up Has no [...] per primary team Labs/tests/tasks to review: N/A. Provider Relations Consultant to coordinate care with: N/A. A total [...] Date: 04/04/2024 PCP: Tam Hughes DO Room#: K4-396/[id number] A BRIEF HOSPITAL COURSE: Roro is a [...] Medical History: Diagnosis Date Addiction to drug ([facility]) ([facility]) Alcohol abuse Alcohol withdrawal syndrome without complication ([facility]) 06/27/2022 Alcohol withdrawal with inpatient treatment, uncomplicated ([facility]) 03/15/2022 GERD (gastroesophageal reflux disease) History of pancreatitis 01/07/2023 Hypertension Pancreatitis Seizures ([facility]) SVT (supraventricular tachycardia) ([facility]) Tourette syndrome LABS: CBC: Recent Labs 04/04/24 [...] Paulino Shelton MD Division of Hospitalist Medicine [facility] * Dov Vanegas MD - 04/05/2024 8:00 [...] 04/04/2024 [facility] 1985 [id number] Date/Time: 04/04/2024 05:20 Procedure: CT ABDOMEN PELVIS [...] 12 step meeting attendance. Patient returned to [facility] and self discontinued suboxone Follow up plan for addiction management discussed with patient: Patient notes that he does not wish to discuss MAT or Aftercare at this time 2/2 abd pain and somnolence. ADM to continue to engage. Highly recommend Residential (rehab for 90 days), has been successful at [facility] in the past. Unclear why he did not return to [facility] after his last chemical detox. [...] per primary team Labs/tests/tasks to review: N/A. Provider Relations Consultant to coordinate care with: N/A. A total of 35 minutes were spent reviewing the patient's records, evaluating the patient, entering orders, coordinating care with the treatment team, and creating this note. * Genet Carney OT - 04/04/2024 10:06 AM EST Images from the original note were not included. OCCUPATIONAL THERAPY [facility]'s Name/MRN: Roro Valdivia ([id number]) Date: 04/04/2024 Chart review completed and spoke to PT, per PT, pt is independent in ADLs, transfers and mobility. Pt with no concerns in returning home. Pt with no acute OT needs. Genet Carney OT * Wendi Rich, PT - 04/04/2024 9:18 AM EST Images from the original note were not included. PHYSICAL THERAPY [facility] Initial Evaluation Name/MRN: Roro Valdivia ([id number]) Evaluation Date: 04/04/2024 Date of : 1985 Admission Date: 04/04/2024 4:12 AM Age: 38 y.o. Room[facility]: [facility] A Discharge Recommendation: Home with assist PRN [...] History: Diagnosis Date Addiction to drug (CMS/HCC) ([facility]) Alcohol abuse Alcohol withdrawal syndrome without complication ([facility]) 06/27/2022 Alcohol withdrawal with inpatient treatment, uncomplicated ([facility]) 03/15/2022 GERD (gastroesophageal reflux disease) History of pancreatitis 01/07/2023 Hypertension Pancreatitis Seizures ([facility]) SVT (supraventricular tachycardia) ([facility]) Tourette syndrome Past Surgical History: Past Surgical History: Procedure Laterality Date APPENDECTOMY Admission Diagnosis: Patient Active Problem List Diagnosis Date Noted Severe malnutrition (CMS/HCC) ([facility]) 02/06/2024 Alcohol withdrawal syndrome without complication ([facility]) 02/04/2024 Alcohol-induced acute pancreatitis, unspecified complication status 01/20/2024 Alcoholic intoxication without complication (CMS/HCC) ([facility]) 12/13/2023 Moderate malnutrition (CMS/HCC) (HCC) 11/20/2023 Acute [...] disease) 06/06/2018 Hypertension 06/06/2018 SVT (supraventricular tachycardia) ([facility]) 06/06/2018 Tourette syndrome 06/06/2018 Alcohol induced acute [...] Responsibilities: Independent Receives Help From: Family Active Vp Corporate Development: Yes Prior Level of Function Prior Level [...] collaboration with patient/family/other representatives. documented in this [facility]02-25-2025 NotePatient declined smoking cessation counseling. Accepting of handout with contact information for future reference.[facility]02-24-2025 Consult note * Guillermo Richardson MD - [...] 5,000 Units, SubCUTAneous, 2 times per day, Chritsopher Arias MD, 5,000 Units at 04/04/24 0956 [...] freeto contact the dictating provider for clarification.) [facility]02-24-2025 Consult note* Guillermo Richardson MD - 04/04/2024 [...] Alcohol abuse Alcohol withdrawal syndrome without complication ([facility]) 06/27/2022 Alcohol withdrawal with inpatient treatment, uncomplicated ([facility]) 03/15/2022 GERD (gastroesophageal reflux disease) History of pancreatitis 01/07/2023 Hypertension Pancreatitis Seizures (HCC) SVT (supraventricular tachycardia) ([facility]) Tourette syndrome PAST SURGICAL HISTORY: Past Surgical [...] HTN and depression. Pt was admitted into [facility] for pancretitis andacute alcohol withdrawal. ADM consulted to assist in management of chemical detox. Well known to ADM. Has a chronic Hx of AUD. Has had multiple admissions for chemical detox from ETOH. Notes that as of late he has been drinking 1 pint per day. Last drink yesterday. Reports he presented to [facility] ED this morning c/o N/V and abd [...] Chem Dep IOP: [facility] Detoxifications: Several through 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 disease) History of pancreatitis 01/07/2023 Hypertension Pancreatitis Seizures ([facility]) SVT (supraventricular tachycardia) ([facility]) Tourette syndrome SURGICAL HISTORY Past Surgical History: [...] 0 min Stress: Stress Concern Present (02/05/2024) [place] of Occupational Health - Occupational Stress Questionnaire Feeling of Stress : To some extent Social Connections: Socially Isolated (02/05/2024) Social Connection and Isolation Panel [NHANES] Frequency of Communication with Friends and Family: More than three times a week Frequency of Social Gatherings with Friends and Family: More than three times a week Attends Episcopal Services: Never Active Member of Clubs or [...] none. I also reviewed external records from [facility]. I discussed their care with [...] TIME None CONSULTS: IP CONSULT TO ADDICTION PORTFOLIO MANAGER PROCEDURES: Unless otherwise noted below, none Procedures Patients symptoms are consistent with sepsis, severe sepsis, or septic shock (If yes use .sepsiscoremeasure): no FINAL IMPRESSION 1. Pain of upper abdomen 2. Transaminitis 3. Alcohol-induced chronic pancreatitis (CMS/HCC) ([facility]) 4. Alcohol use disorder DISPOSITION Discharge 03/22/2024 04:39:01 PM PATIENT REFERRED TO: [facility] ED [address] [facility] [address] If symptoms worsen DISCHARGE MEDICATIONS: New [...] Medicine Provider JOSÉ ANTONIO Mercedes CNP 03/22/24 3319 [facility] HospitalUuwzjq22-18-4299 Telephone encounter Note* Telephone Encounter - Roma Mckenzie RN - 02/20/2024 4:11 PM EST Called patient for follow up, voicemail received, message left. [facility] HospitalVbxmfv81-89-4708 Miscellaneous Notes* Telephone Encounter - Roma Mckenzie RN - 02/20/2024 4:11 PM EST Called patient for follow up, voicemail received, message left. documented in this [facility]SSt. [facility]'s HospitalVyyhfe23-04-7728 Nurse Note* Fay Lara RN - 02/08/2024 1:54 PM EST Claims ticket found in chart. Patient left without getting item. Message left on the cell number ofthe patient listed in the chart that the ticket is in security and he can retrieve his item from them. Number to the unit desk provide d for any further questions. [facility] HospitalNqoekx06-41-9544 Nurse Note* Fay Lara RN - 02/08/2024 [...] items after he leaves the unit. Our train controller has his things in hand and is [...] unit at 1310 via gurney from the [facility] ED. Patient admitted for ETOH detox, alcohol level 422 when he first arrived, then 193 prior to admit here. Patient tox screen positive forcocaine. Patient here in August, stated he never really stopped drinking. Admitted to doing cocainewhen drinking, a small amount. Multiple reports of how much patient is drinking, he told this abstract writer he is doing 1/2 gallon of vodka [...] to monitor for safety. documented in this [facility]12-30-2024 Nurse Note* Fay Lara RN - [...] items after he leaves the unit. Our train controller has his things in hand and is walking him down to discharge. His gait is steady and he is without complaint. [facility] [id number] Group counseling note* Group Note - Divine Lombardo - 02/08/2024 12:25 PM EST Department: [facility] ACTIVITIES THERAPY Group Topic: Recreation Therapy [...] Roro Valdivia Date of : 1985 MR: [id number] Appearance: Good eye contact Affect: Appropriate Behavior: [...] without complication (HCC) Severe malnutrition (CMS/HCC) (HCC) [id number] Miscellaneous Notes* Group Note - Divine Lombardo - 02/08/2024 12:25 PM EST Department: [facility] THERAPY Group Topic: Recreation Therapy Group Date: [...] Roro Valdivia Date of : 1985 MR: [id number] Appearance: Good eye contact Affect: Appropriate Behavior: [...] program. Patient denied needing anything further from LAP WINDING MACHINE OPERATOR at the time. LAP WINDING MACHINE OPERATOR informed patient's nurse about conversation. * Care [...] been eating and has a weight loss. Powder Worker up to see patient. This patient is cooperative with supliments ordered. * Care Plan - Velma Forman RN - 02/06/2024 6:05 AM EST Pt able to verbalize signs/symptoms of withdrawal . * Care Coordination - HUSSAIN Toirbio - 02/05/2024 1:11 PM EST Behavioral Health [...] on 11/03/2022, patient was sent directly to [facility] for residential treatment. Patient reports that he was unable to go to [facility] due to being on Suboxone. Patient reports that he went to [facility] for 3 months. He reports that [...] attempt by overdose. Patient was sent to [facility] in [place] for stabilization. Patient has additional admissions to [facility]. Patient reports past history of suicide attempt [...] suboxone in October. Previously he was following [facility] however, he was having inconsistency [...] Patient has history of residential treatment at [facility] and [facility] (he was unable to stay at [facility] due to being on Suboxone). Medical/Self-care Issues: [...] alone in [place]. Patient reports he experiences housing instability and [...] raised in [place] by primarily his mother's adoptive parents. Patient [...] GED while he was in the [facility] house. No reported post secondary education or vocational training. Patient reports he is not currently working. 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 Patient denies SI/SSD. Cultural/Spirituality/Leisure: Patient denies any cultural needs or concerns at the current time. Patient denies any buddhism preference at the current time. Patient reports [...] was [facility] then [facility] [place]. Patient has additional admissions to [facility]. Patient reports Hx of SI where he [...] on Zoloft. Patient most recently referred to [facility]. Hx of noncompliance with OP MH [...] attempt by overdose. Patient was sent to [facility] then ultimately [facility] in [place] for stabilization. Patient has additional admissions to [facility]. Patient reports past history of suicide attempt [...] in the hospital. Patient signed ARI and LAP WINDING MACHINE OPERATOR sent all information to agency in order to coordinate patient's direct transfer to program postdischarge in the hospital when ready. Patient encouraged to engage in all activities that are offered to them while they are on the unit.Patient report needing additional current time. Patient encouraged to seek out LAP WINDING MACHINE OPERATOR unit staff should they identify any additional [...] dictating provider for clarification. documented in this [facility]12-30-2024 Note* Care Coordination - HUSSAIN Toribio - 02/08/2024 11:10 AM EST Patient reports that he is unable to contact his stepmother in order to pick him up from the hospital. Asking for a bus pass. Peds has provided to patient in order for him to return home to gather his belongings to go to [facility]/sober living. [facility] HospitalHchldm60-92-5244 Note* Care Coordination - HUSSAIN Toribio - 02/08/2024 11:10 AM EST Patient reports that he is unable to contact his stepmother in order to pick him up from the hospital. Asking for a bus pass. Peds has provided to patient in order for him to return home to gather his belongings to go to [facility]/sober living. [facility] HospitalFlczxz62-36-5707 [facility]12-30-2024 Hospital course Narrative* Nikky Escobar MD - 02/08/2024 10:59 AM EST Images from the original note were not included. ADDICTION MEDICINE 4E DETOX UNIT DISCHARGE SUMMARY __ Patient MRN Roro Valdivia [id number] 1985 Admit Date Discharge Date 02/04/2024 02/08/2024 [...] withdrawal and was hopefulfor continued sobriety with [facility], where Roro had previously attended and had [...] start before December 18, 2023. Follow Up [facility] sober [facility] [address] [place] [address] Go to For intake for PHP/sober living [...] process. Carlitos Orta MD documented in this [facility]12-30-2024 Note* Care Coordination - HUSSAIN Toribio [...] program. Patient denied needing anything further from [facility] at the time. HUSSAIN informed patient's nurse about conversation. [id number] Note* Care Coordination - HUSSAIN Toribio - 02/08/2024 10:34 AM EST LAP WINDING MACHINE OPERATOR saw patient to discuss aftercare plans and [...] program. Patient denied needing anything further from LAP WINDING MACHINE OPERATOR at the time. HUSSAIN informed patient's nurse about conversation. [facility]elti [id number] Nurse Note* Fay Lara RN - 02/08/2024 8:13 AM EST On first assessment Mr. Valdivia was resting in bed. He allowed this author to order fruit and Ensure plus for breakfast. He was not ready for any other food at this time. He was cooperative with morning assessment. He took his morning medications without issue. [id number] Nurse Note* Velma Forman RN - 02/07/2024 8:18 PM EST Pt alert and oriented, med compliant, pt denies SI/HI/AVH, NV&D. Pt complains of some anxiety, medicated with vistaril and trazodone for sleep. 2117- vistaril effective for anxiety, pt asleep at this time. Pt encouraged to update staff with any change in condition. Will monitor pt for safety. [facility]12-29-2024 Plan of care note* Care Plan - [...] getting chips or fruit in addition toensure. [facility]12-29-2024 History of Present illness Narrative* Reeys Pulliam MD - 02/07/2024 4:02 PM EST [...] -Monitor vitals and electrolytes -[facility] -Dietary consult, nutritional supplement - PT/OT/CM/SW - [...] Date: 02/04/2024 PCP: Tam Hughes DO Room#: E4-535/E4-386 A Brief Hospital course: Patient is a [...] Medical History: Diagnosis Date Addiction to drug ([facility]) ([facility]) Alcohol abuse Alcohol withdrawal syndrome without complication ([facility]) 06/27/2022 Alcohol withdrawal with inpatient treatment, uncomplicated ([facility]) 03/15/2022 GERD (gastroesophageal reflux disease) History of pancreatitis 01/07/2023 Hypertension Pancreatitis Seizures ([facility]) SVT (supraventricular tachycardia) ([facility]) Tourette syndrome LABS: CBC: Recent Labs 02/04/24210702/05/24 [...] Reyes Pulliam MD Division of Hospitalist Medicine [facility] * Nikky Escobar MD - 02/07/2024 10:17 [...] States last drink was approx 5 minutes POWER DIGGER OPERATOR. Patient states history of seizures due to [...] hospital and will be his ride to [facility] after he picks up clothes from his mothers home Tolerating Effexor without side effects Remains hopeful for care at [facility], notes previously had sustained sobriety after admission [...] management discussed with patient: Plans to attend [facility]. Alcohol withdrawal Last use of aclohol was [...] symptoms. Medical stabilization. Labs/tests/tasks to review: None. Provider Relations Consultant to coordinate care with: IM. This patient [...] -Monitor vitals and electrolytes -Possible [facility] to [facility] -Dietary consult, nutritional supplement - PT/OT/CM/SW - [...] Date: 02/04/2024 PCP: Tam Hughes, DO Room#: E4-190/E4-292 A Brief Hospital course: Patient is a [...] Medical History: Diagnosis Date Addiction to drug ([facility]) ([facility]) Alcohol abuse Alcohol withdrawal syndrome without complication ([facility]) 06/27/2022 Alcohol withdrawal with inpatient treatment, uncomplicated ([facility]) 03/15/2022 GERD (gastroesophageal reflux disease) History of pancreatitis 01/07/2023 Hypertension Pancreatitis Seizures ([facility]) SVT (supraventricular tachycardia) ([facility]) Tourette syndrome LABS: CBC: Recent Labs 02/04/24 [...] Reyes Pulliam MD Division of Hospitalist Medicine [facility] * Luisa Kilgore RD - 02/06/2024 5:05 [...] loss Fluid Accumulation: No significant fluid accumulation Cash Applications Manager Strength: Not Performed Nutrition Assessment: Per 02/03 [...] week, @ home was involved in a [place]opah where he would drink, then when no [...] On: Kcal/kg Weight Used for Energy Requirements: [place] Weight for Energy Calculation (kg): 84 kg Total Energy Requirements (kcals/day): 2100 - 2520 kcals/day Weight Used for Protein Requirements: [place] Weight in Kg Used for Protein Requirements: 84 kg Estimated Total Protein (g/day): 92- 101gm protein/day Estimated Daily Total Fluid (ml/day): 2100 - 2520 mls/day Nutrition Related Findings: frequent emesis, ETOH abuse, large weight loss POWER DIGGER OPERATOR; 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 .64, low [...] Usual Body Weight: 122 kg (270 lb) ([facility] 08/10/23) % Weight Change (Calculated): -13 [place] Body Weight (lbs) (Calculated): 184 lbs [place] Body Weight (Kg) (Calculated): 84 kg % [place] Body Weight (Calculated): 127.7 % BMI (kg/m2) [...] current diet Luisa Kilgore RD Contact: via [facility] chat or office *[phone] * Nikky Escobar MD - 02/06/2024 9:46 [...] States last drink was approx 5 minutes POWER DIGGER OPERATOR. Patient states history of seizures due to [...] of Effexor Is hopeful for care at [facility], notes previously had sustained sobriety after admission [...] discussed with patient: Hopeful for admission to [facility]. Alcohol withdrawal Last use of aclohol was [...] symptoms. Medical stabilization. Labs/tests/tasks to review: None. Provider Relations Consultant to coordinate care with: None. This patient was staffed with Dr. Alexandre. Nikky Escobar MD electronically signed this at 9:47 AM ] Cosigned by Louis Alexandre MD at 02/07/2024 8:32 PM EST Associated attestation - Louis Alexnadre MD - 02/07/2024 8:32 PM EST I did spend over 35 minutes coordinating care,providing discussion on patient's medical,psychiatricand chemical dependency history, and discussion of treatment plan documented in this [facility]12-28-2024 Nurse Note* Velma Forman RN - [...] in condition. Will monitor pt for safety. [facility] [id number] Plan of care note* Care Plan - [...] been eating and has a weight loss. Powder Worker up to see patient. This patient is cooperative with supliments ordered. [facility] [id number] Consult note* Luisa Kilgore RD - 02/06/2024 [...] loss Fluid Accumulation: No significant fluid accumulation Cash Applications Manager Strength: Not Performed Nutrition Assessment: Per 02/03 [...] week, @ home was involved in a [place] where he would drink, then when no [...] On: Kcal/kg Weight Used for Energy Requirements: [place] Weight for Energy Calculation (kg): 84 kg Total Energy Requirements (kcals/day): 2100 - 2520 kcals/day Weight Used for Protein Requirements: [place] Weight in Kg Used for Protein Requirements: 84 kg Estimated Total Protein (g/day): 92- 101gm protein/day Estimated Daily Total Fluid (ml/day): 2100 - 2520 mls/day Nutrition Related Findings: frequent emesis, ETOH abuse, large weight loss POWER DIGGER OPERATOR; 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 .64, low [...] Usual Body Weight: 122 kg (270 lb) ([facility] 08/10/23) % Weight Change (Calculated): -13 [place] Body Weight (lbs) (Calculated): 184 lbs [place] Body Weight (Kg) (Calculated): 84 kg % [place] Body Weight (Calculated): 127.7 % BMI (kg/m2) [...] current diet Luisa Kilgore RD Contact: via [facility] [facility] *[id number] [facility] [id number] Consult note* Luisa LICHA Kilgore - 02/06/2024 [...] loss Fluid Accumulation: No significant fluid accumulation Cash Applications Manager Strength: Not Performed Nutrition Assessment: Per 02/03 [...] week, @ home was involved in a cocopah where he would drink, then when no [...] On: Kcal/kg Weight Used for Energy Requirements: [place] Weight for Energy Calculation (kg): 84 kg Total Energy Requirements (kcals/day): 2100 - 2520 kcals/day Weight Used for Protein Requirements: [place] Weight in Kg Used for Protein Requirements: 84 kg Estimated Total Protein (g/day): 92- 101gm protein/day Estimated Daily Total Fluid (ml/day): 2100 - 2520 mls/day Nutrition Related Findings: frequent emesis, ETOH abuse, large weight loss POWER DIGGER OPERATOR; 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 .64, low [...] Usual Body Weight: 122 kg (270 lb) [facility] % Weight Change (Calculated): -13 [place] Body Weight (lbs) (Calculated): 184 lbs [place] Body Weight (Kg) (Calculated): 84 kg % [place] Body Weight (Calculated): 127.7 % BMI (kg/m2) [...] current diet Luisa Kilgore RD Contact: via virtual [employer] chat or office *[phone] * Stone Ramsey MD - 02/05/2024 11:10 AM ESTAssociated Order(s): IP CONSULT TO ADDICTION MEDICINE [facility] Consult service H&P Admit Date: 02/04/2024 Primary Care Physician: Tam Hughes DO ] Chief Complaint Patient presents with Alcohol Problem Patient presents to ED for detox. States he normally drinks approx 5 one liter bottles of liquor per day. 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 Patient states history of seizures due to [...] Diagnosis Date Alcohol withdrawal syndrome without complication ([facility]) 06/27/2022 Alcohol withdrawal with inpatient treatment, uncomplicated ([facility]) 03/15/2022 GERD (gastroesophageal reflux disease) History of pancreatitis 01/07/2023 Hypertension Pancreatitis Seizures ([facility]) SVT (supraventricular tachycardia) ([facility]) Tourette syndrome Past Surgical History: Procedure Laterality [...] 0 min Stress: Stress Concern Present (01/21/2024) [place] [employer]ational [employer] - Occupational Stress Questionnaire Feeling of Stress : To some extent Social Connections: Socially Isolated (01/22/2024) Social Connection and Isolation Panel [NHANES] Frequency of Communication with Friends and Family: More than three times a week Frequency of Social Gatherings with Friends and Family: More than three times a week Attends Episcopal Services: Never Active Member of Clubs or [...] eGFR >90.0 >60.0 mL/min/1.73m*2 Blood gas, venous ([facility]) Collection Time: 02/04/24 9:08 [...] ODT OR ondansetron, polyethylene glycol (PEG) 3350 @[id number]@ Plan . 1. Alcohol use disorder severe [...] 02/05/2024 at 11:11 AM documented in this [facility]12-28-2024 Nurse Note* Feli May RN - [...] and eats one bite of food weekly. [facility] HospitalCsedhx30-06-6526 Plan of care note* Care Plan - Velma Forman RN - 02/06/2024 6:05 AM EST Pt able to verbalize signs/symptoms of withdrawal . [facility] [id number] Nurse Note* Velma Forman RN - 02/05/2024 9:10 PM EST Pt asleep at this time. [place] [id number] Nurse Note* Velma Forman RN - 02/05/2024 9:10 PM EST Pt medicated with vistaril for anxiety. 2210- Vistaril effective for anxiety, pt asleep at this time. [facility] HospitalOtndnv41-34-3364 Nurse Note* Velma Forman RN - 02/05/2024 8:10 PM EST Pt alert and oriented, med compliant, pt denies SI/HI/AVH, NV&D. Pt states he feels he has beenhaving panic attacks on and off for the past few hours. Pts CIWA 14 Dr[address] Ramsey updated and new orders received. Pt encouraged to update staff with any change in condition. Will monitor pt for safety. [facility] HospitalYvruiw24-94-7763 Nurse Note* Seema Loredo RN - 02/05/2024 1:30 PM EST Patient arrived to the unit at 1310 via gurney from the [facility] ED. Patient admitted for ETOH detox, alcohol level 422 when he first arrived, then 193 prior to admit here. Patient tox screen positive forcocaine. Patient here in August, stated he never really stopped drinking. Admitted to doing cocainewhen drinking, a small amount. Multiple reports of how much patient is drinking, he told this abstract writer he is doing 1/2 gallon of vodka [...] signed. Will continue to monitor for safety. [facility] HospitalWvwgnz66-18-8617 Note* Care Coordination - HUSSAIN Toribio - [...] on 11/03/2022, patient was sent directly to [facility] for residential treatment. Patient reports that he was unable to go to [facility] due to being on Suboxone. Patient reports that he went to [facility] for 3 months. He [...] attempt by overdose. Patient was sent to [facility] in [place] for stabilization. Patient has additional admissions to [facility]. Patient reports past history of suicide attempt [...] suboxone in October. Previously he was following [facility] however, he was having inconsistency [...] Patient has history of residential treatment at [facility] and [facility] (he was unable to stay at [facility] due to being on Suboxone). Medical/Self-care Issues: [...] alone in [place] [facility] [place]. Patient reports he experiences housing instability and [...] raised in [place] by primarily his mother's adoptive parents. Patient [...] currently working. 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 Patient denies SI/SSD. Cultural/Spirituality/Leisure: Patient denies any cultural needs or concerns at the current time. Patient denies any buddhism preference at the current time. Patient reports [...] was [facility] [place]. Patient has additional admissions to [facility]. Patient reports Hx of SI where he [...] on Zoloft. Patient most recently referred to [facility]. Hx of noncompliance with OP MH [...] attempt by overdose. Patient was sent to [facility] then [facility] in [place] for stabilization. Patient has additional admissions to [facility]. Patient reports past history of suicide attempt [...] in the hospital. Patient signed ARI and LAP WINDING MACHINE OPERATOR sent all information to agency in order to coordinate patient's direct transfer to program postdischarge in the hospital when ready. Patient encouraged to engage in all activities that are offered to them while they are on the unit.Patient report needing additional current time. Patient encouraged to seek out LAP WINDING MACHINE OPERATOR unit staff should they identify any additional [...] to contact the dictating provider for clarification. [facility] HospitalNbaakp23-55-2683 Note* Care Coordination - HUSSAIN Toribio - [...] on 11/03/2022, patient was sent directly to [facility] for residential treatment. Patient reports that he was unable to go to [facility] due to being on Suboxone. Patient reports that he went to [facility] for 3 months. He [...] attempt by overdose. Patient was sent to [facility] in [place] for stabilization. Patient has additional admissions to [facility]. Patient reports past history of suicide attempt [...] suboxone in October. Previously he was following [facility] however, he was having inconsistency [...] Patient has history of residential treatment at [facility] and [facility] (he was unable to stay at [facility] due to being on Suboxone). Medical/Self-care Issues: [...] alone in [place] [facility] [facility] [place]. Patient reports he experiences housing instability and [...] raised in [place] by primarily his mother's adoptive parents. Patient [...] his GED while he was in the [facility]. No reported post secondary education or vocational training. Patient reports he is not currently working. 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 Patient denies SI/SSD. Cultural/Spirituality/Leisure: Patient denies any cultural needs or concerns at the current time. Patient denies any buddhism preference at the current time. Patient reports [...] was [facility] [place]. Patient has additional admissions to [facility]. Patient reports Hx of SI where he [...] on Zoloft. Patient most recently referred to [facility]. Hx of noncompliance with OP MH [...] attempt by overdose. Patient was sent to [facility] then [facility] in [place] for stabilization. Patient has additional admissions to [facility]. Patient reports past history of suicide attempt [...] Plan: Patient reports plans to engage at [facility] for PHP/sober living program postdischarge in the hospital. Patient signed ARI and HUSSAIN sent all information to agency in order to coordinate patient's direct transfer to program postdischarge in the hospital when ready. Patient encouraged to engage in all activities that are offered to them while they are on the unit.Patient report needing additional current time. Patient encouraged to seek out LAP WINDING MACHINE OPERATOR unit staff should they identify any additional [...] to contact the dictating provider for clarification. [facility] HospitalIfiomq86-66-2930 Hospital Discharge instructions* Discharge Instr - Other [...] National Suicide Prevention Hotline if needed at: 9-949-858-ESLV (8921) Please call the following number should you have questions regarding your discharge or aftercare appointments: 4 [facility] documented in this [facility]12-27-2024 Emergency department Note* Elsy Jason RN - 02/05/2024 12:55 PM EST Transport here to take patient to Detox 4E, RN called for protective services. 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 Patient states history of seizures due to [...] 0 min Stress: Stress Concern Present (01/21/2024) [place] of Occupational Health - Occupational Stress Questionnaire Feeling of Stress : To some extent Social Connections: Socially Isolated (01/22/2024) Social Connection and Isolation Panel [NHANES] Frequency of Communication with Friends and Family: More than three times a week Frequency of Social Gatherings with Friends and Family: More than three times a week Attends Episcopal Services: Never Active Member of Clubs or [...] Abnormal ETHANOL IN SER/PLAS 422 (*) Narrative: VOICE PATHOLOGIST depression is seen >100 mg/dL. NOTE: This [...] Department Physician in the absence of a lead systems engineer. Please see Myriam for interpretation of EKG. [...] on file Beatris Argueta PA-C Acute Care [facility] Beatris Argueta PA-C 02/06/24 0908 documented in this [facility]12-27-2024 Emergency department Note* Martha Su RN - 02/05/2024 12:21 PM EST Report given to RN on 4E room 410. RN stated to leave left AC IV in place. Pt put in for transport [address]27-2024 Emergency department Note* Elsy Jason RN - 02/05/2024 11:37 AM EST Protective services at bedside with patient for belongings check and wanding. [address]27-2024 Emergency department Note* Elsy Jason RN - 02/05/2024 11:27 AM EST RN changed patient into 2 gowns and socks, belongings placed in 1 bag for officers to do belongingscheck. Patient read and signed rules of detox. [address]27-2024 Consult note* Stone Ramsey MD - 02/05/2024 11:10 AM EST Associated Order(s): IP CONSULT TO ADDICTION MEDICINE [facility] Consult service H&P Admit Date: 02/04/2024 Primary Care Physician: Tam Hughes ] Chief Complaint Patient presents with Alcohol Problem Patient presents to ED for detox. States he normally drinks approx 5 one liter bottles of liquor per day. 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 Patient states history of seizures due to [...] 0 min Stress: Stress Concern Present (01/21/2024) [place] of Occupational Health - Occupational Stress Questionnaire Feeling of Stress : To some extent Social Connections: Socially Isolated (01/22/2024) Social Connection and Isolation Panel [NHANES] Frequency of Communication with Friends and Family: More than three times a week Frequency of Social Gatherings with Friends and Family: More than three times a week Attends Episcopal Services: Never Active Member of Clubs or [...] ODT OR ondansetron, polyethylene glycol (PEG) 3350 @[id number]@ Plan . 1. Alcohol use disorder severe [...] MD Addiction Medicine 02/05/2024 at 11:11 AM [facility] [employer] Phone: 1(509) 822-345512-27-2024 History and physical note* Israel Garcia DO [...] Diagnosis Date Alcohol withdrawal syndrome without complication ([facility]) 06/27/2022 Alcohol withdrawal with inpatient treatment, uncomplicated ([facility]) 03/15/2022 GERD (gastroesophageal reflux disease) History of pancreatitis 01/07/2023 Hypertension Pancreatitis Seizures ([facility]) SVT (supraventricular tachycardia) ([facility]) Tourette syndrome Past Surgical History: Past Surgical [...] 0 min Stress: Stress Concern Present (01/21/2024) [place] of Occupational Health - Occupational Stress Questionnaire Feeling of Stress : To some extent Social Connections: Socially Isolated (01/22/2024) Social Connection and Isolation Panel [NHANES] Frequency of Communication with Friends and Family: More than three times a week Frequency of Social Gatherings with Friends and Family: More than three times a week Attends Episcopal Services: Never Active Member of Clubs or [...] Division of Hospital Medicine Inpatient Medical Services/[place] [employer] Phone: [phone] [facility]12-27-2024 History and physical note* Israel Garcia DO [...] 0 min Stress: Stress Concern Present (01/21/2024) [place] of Occupational Health - Occupational Stress Questionnaire Feeling of Stress : To some extent Social Connections: Socially Isolated (01/22/2024) Social Connection and Isolation Panel [NHANES] Frequency of Communication with Friends and Family: More than three times a week Frequency of Social Gatherings with Friends and Family: More than three times a week Attends Episcopal Services: Never Active Member of Clubs or [...] DO Division of Hospital Medicine Inpatient Medical Services/[facility] documented in this [address]26-2024 Emergency department Note* Antony Lester RN - 02/04/2024 11:09 PM EST Etoh detox admit. Responds to verbal. A/ox4. Report received from lunch covered nurse. Vss and updated. Oriented to call hooper. No distress. [address]26-2024 Emergency department Note* Maria Isabel Juarez RN - 02/04/2024 7:17 PM EST Report given to ana SHI [address]26-2024 Emergency department Note* Maria Isabel Juarez RN - 02/04/2024 6:54 PM EST Pt given warm blanket [address]26-2024 Emergency department Note* Maria Isabel Juarez RN - 02/04/2024 4:48 PM EST Provider messaged on pt behalf requesting something for detox [address]26-2024 Emergency department Note* Maria Isabel Juarez RN - 02/04/2024 2:57 PM EST Pt able to give urine sample in urinal at this time [address]26-2024 Emergency department Note* Maria Isabel Juarez RN - 02/04/2024 2:51 PM EST Pt refusing urinal. Deion santillan came into room to assist this RN with urine sample. Pt stating he can't urinate at this time. [facility]12-26-2024 Emergency department Note* Maria Isabel Juarez RN - 02/04/2024 1:16 PM EST Pt was max assist into bed with this RN, Brown SHI, Yosef EKG and Steve EKG. Seizure precautions initiated. Bed rails padded, suction connected, all safety maintained. Step mother at bed side. Pt refusing to remove clothing at this time. 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 Patient states history of seizures due to [...] 06/27/2022 Alcohol withdrawal with inpatient treatment, uncomplicated ([facility]) 03/15/2022 GERD (gastroesophageal reflux disease) History of pancreatitis 01/07/2023 Hypertension Pancreatitis Seizures ([facility]) SVT (supraventricular tachycardia) ([facility]) Tourette syndrome Past Surgical History: Procedure Laterality [...] 0 min Stress: Stress Concern Present (01/21/2024) [place] of Occupational Health - Occupational Stress Questionnaire Feeling of Stress : To some extent Social Connections: Socially Isolated (01/22/2024) Social Connection and Isolation Panel [NHANES] Frequency of Communication with Friends and Family: More than three times a week Frequency of Social Gatherings with Friends and Family: More than three times a week Attends Episcopal Services: Never Active Member of Clubs or [...] Abnormal ETHANOL IN SER/PLAS 422 (*) Narrative: VOICE PATHOLOGIST depression is seen >100 mg/dL. NOTE: This [...] Department Physician in the absence of a lead systems engineer. Please see Epiphany for interpretation of EKG. [...] medicine, recommended medical admission, was admitted to [facility] for detox MDM elements: Diagnostic tests considered [...] [employer] Beatris Argueta PA-C 02/06/24 0908 [employer] Work Phone: 1(776) 864-745412-20-2024 Telephone encounter Note* Telephone Encounter - Roma Mckenzie RN - 01/29/2024 5:40 PM EST Called for post discharge follow up, no answer, voicemail left. [employer]12-20-2024 Miscellaneous Notes* Telephone Encounter - Roma Mckenzie RN - 01/29/2024 5:40 PM EST Called for post discharge follow up, no answer, voicemail left. documented in this encounterSSt. Anthony's HospitalPsyskf50-59-5137 Nurse Note* Jade Gutierrez RN - 01/26/2024 4:13 PM EST Patient verbalized understanding of all discharge instructions including medications, follow up appointments, s&s of infection, and when to call the physician. [facility] HospitalWqbpkv99-47-0034 Nurse Note* Jade Gutierrez RN - 01/26/2024 4:13 PM EST Patient verbalized understanding of all discharge instructions including medications, follow up appointments, s&s of infection, and when to call the physician. * Roma Mckenzie RN - 01/22/2024 12:21 PM EST This [facility] RN saw patient on floor today for [...] peer recovery coaches. He is familiar with [facility] in which he receives services through them [...] distress at this time. documented in this encounterSSt. Anthony's HospitalOisnth07-53-0611 [facility] 01-26-2024 Hospital Discharge instructions* Discharge Instr - Activity* Donald Julian DO - 01/26/2024 10:45 AM EST As tolerated * Attachments The following attachments cannot be sent through Care Everywhere. * Pancreatitis Discharge Instructions (Maldivian) * Alcohol Use Disorder ED (Maldivian) * Nausea and Vomiting, Adult (Maldivian) documented in this [facility]12-17-2024 History of Present illness Narrative* Donald Julian DO - 01/26/2024 10:23 AM EST Hospitalist Progress Note 01/26/2024 Subjective: Admit Date: 01/20/2024 PCP: Tam Hughes DO Room#: [id number] A Brief Hospital course: Roro is a [...] Diagnosis Date Alcohol withdrawal syndrome without complication ([facility]) 06/27/2022 Alcohol withdrawal with inpatient treatment, uncomplicated ([facility]) 03/15/2022 GERD (gastroesophageal reflux disease) History of pancreatitis 01/07/2023 Hypertension Pancreatitis Seizures ([facility]) SVT (supraventricular tachycardia) ([facility]) Tourette syndrome Adult diet Full liquid 24HR [...] Date: 01/20/2024 PCP: Tam Hughes DO Room#: [id number] A Brief Hospital course: Roro is a [...] Hypertension Pancreatitis Seizures (HCC) SVT (supraventricular tachycardia) ([facility]) Tourette syndrome Adult diet Full liquid 24HR [...] Relation: Mother Donald De Jesusreta Division of [facility] Medicine Inpatient Medical Services/[facility] * William Sparks MD - 01/24/2024 11:21 AM EST Hospitalist Progress Note 01/24/2024 Subjective: Admit Date: 01/20/2024 PCP: Tam Hughes DO Room#: [id number] A BRIEF HOSPITAL COURSE: Roro is a [...] William Sparks MD Division of Hospitalist Medicine [facility] * Christo Fagan DO - 01/23/2024 1:36 PM EST Hospitalist Progress Note 01/23/2024 Subjective: Admit Date: 01/20/2024 PCP: Tam Hughes DO Room#: [id number] A BRIEF HOSPITAL COURSE: Roro is a [...] Hypertension Pancreatitis Seizures (HCC) SVT (supraventricular tachycardia) ([facility]) Tourette syndrome LABS: CBC: Recent Labs 01/21/24135 [...] Todd DO Rylan Division of Hospitalist Medicine [facility] * Nikky Escobar MD - 01/22/2024 1:42 [...] be monitored and followed by the diet neurophysiological technician. Dietitian available upon request. RALPH Chun * William Sparks MD - 01/22/2024 8:51 AM EST Hospitalist Progress Note 01/22/2024 Subjective: Admit Date: 01/20/2024 PCP: Tam Hughes DO Room#: [id number] A BRIEF HOSPITAL COURSE: Roro is a [...] William Sparks MD Division of Hospitalist Medicine [facility] * William Sparks MD - 01/21/2024 8:19 AM EST Hospitalist Progress Note 01/21/2024 Subjective: Admit Date: 01/20/2024 PCP: Tam Hughes DO Room#: [id number] A BRIEF HOSPITAL COURSE: Roro is a [...] Medicine [employer] documented in this [facility]12-17-2024 Plan of care note* Care Plan - Benja Davis RN - [...] Goal: Nutritional status is improving Outcome: Progressing [facility] HospitalTvcidc14-90-9396 Miscellaneous Notes* Care Plan - Benja Davis [...] appropriate resources Outcome: Progressing documented in this [facility]12-16-2024 Plan of care note* Care Plan - Ajay Knight RN - 01/25/2024 6:03 AM EST Problem: Pain - Adult Goal: Verbalizes/displays adequate comfort level or baseline comfort level Outcome: Progressing Problem: Safety - Adult Goal: Free from fall injury Outcome: Progressing Problem: Discharge Planning Goal: Discharge to home or other facility with appropriate resources Outcome: Progressing [facility] HospitalHumrap68-72-4464 Plan of care note* Care Plan - Megha Murrieta RN - 01/24/2024 4:21 PM EST Problem: Pain - Adult Goal: Verbalizes/displays adequate comfort level or baseline comfort level Outcome: Progressing Problem: Safety - Adult Goal: Free from fall injury Outcome: Progressing Problem: Discharge Planning Goal: Discharge to home or other facility with appropriate resources Outcome: Progressing [facility]Kpmjze55-49-2430 Plan of care note* Care Plan - Ajay Knight RN - 01/24/2024 5:36 AM EST Problem: Pain - Adult Goal: Verbalizes/displays adequate comfort level or baseline comfort level Outcome: Progressing Problem: Safety - Adult Goal: Free from fall injury Outcome: Progressing Problem: Discharge Planning Goal: Discharge to home or other facility with appropriate resources Outcome: Progressing [facility] [id number] Plan of care note* Care Plan - Megha Murrieta RN - 01/23/2024 5:54 PM EST Problem: Pain - Adult Goal: Verbalizes/displays adequate comfort level or baseline comfort level Outcome: Progressing Problem: Safety - Adult Goal: Free from fall injury Outcome: Progressing Problem: Discharge Planning Goal: Discharge to home or other facility with appropriate resources Outcome: Progressing [facility]12-13-2024 Plan of care note* Care Plan - Amada Bajwa RN - 01/22/2024 6:25 PM EST Problem: Safety - Adult Goal: Free from fall injury Outcome: Progressing Problem: Pain - Adult Goal: Verbalizes/displays adequate comfort level or baseline comfort level Outcome: Not Progressing Problem: Discharge Planning Goal: Discharge to home or other facility with appropriate resources Outcome: Not Progressing [facility]12-13-2024 Note* Care Coordination - VANITA Phillips - [...] reported no needs for SW to address. [facility]12-13-2024 Note* Care Coordination - VANITA Phillips - [...] reported no needs for SW to address. [facility] HospitalEjcmzp34-87-2509 Nurse Note* Roma Mckenzie RN - 01/22/2024 12:21 PM EST This [facility] RN saw patient on floor today for [...] peer recovery coaches. He is familiar with [facility] in which he receives services through them including housing referrals and knows how to obtaina PRC on his own he states. First Step handout given and I also discussed Vivitrol with patient andprovided him a handout. Patient agrees to follow up phone calls. [facility] HospitalHtiirp38-96-4798 Plan of care note* Care Plan - Maryana Fitzgerald LPN - 01/22/2024 5:18 AM EST Problem: Pain - Adult Goal: Verbalizes/displays adequate comfort level or baseline comfort level Outcome: Progressing Problem: Safety - Adult Goal: Free from fall injury Outcome: Progressing Problem: Discharge Planning Goal: Discharge to home or other facility with appropriate resources Outcome: Progressing [facility] HospitalYfickb66-19-5269 Plan of care note* Care Plan - Megha Murrieta RN - 01/21/2024 5:55 PM EST Problem: Pain - Adult Goal: Verbalizes/displays adequate comfort level or baseline comfort level Outcome: Progressing Problem: Safety - Adult Goal: Free from fall injury Outcome: Progressing Problem: Discharge Planning Goal: Discharge to home or other facility with appropriate resources Outcome: Progressing [facility] HospitalQmziri37-03-2656 Consult note* Britney Perea APRN - ISAEL [...] Last seen one month ago when in [facility] for similar reasons Labs: AST 163 [...] [x] Chem Dep IOP: CD IOP through [facility] [x] Detoxifications: several. [x] 12 Step Meetings: in the past. [] Medication Assisted Treatment: denies. Psychiatric History: Current Psychiatrist: [facility] in the past, none currently [...] options towards Recovery Britney Perea APRN DNP [facility] Addiction Team + Ana M [employer] Work Phone: 1(144) 290-803912-12-2024 Consult note* JOSÉ ANTONIO Benavidez CNP - [...] Last seen one month ago when in [facility] for similar reasons Labs: AST 163 [...] [x] Chem Dep IOP: CD IOP through [facility] [x] Detoxifications: several. [x] 12 Step Meetings: in the past. [] Medication Assisted Treatment: denies. Psychiatric History: Current Psychiatrist: [facility] in the past, none currently [...] options towards Recovery Britney Perea APRN, DNP [facility] Addiction Team + documented in this [facility]SSt. [facility] [id number] Plan of care note* Care Plan - Cherelle Santillan RN - 01/21/2024 3:57 AM EST Problem: Pain - Adult Goal: Verbalizes/displays adequate comfort level or baseline comfort level Outcome: Progressing Problem: Safety - Adult Goal: Free from fall injury Outcome: Progressing Problem: Discharge Planning Goal: Discharge to home or other facility with appropriate resources Outcome: Progressing [facility] [id number] Nurse Note* Cherelle Santillan RN - 01/21/2024 1:30 AM EST Pt. On unit. BP remains elevated at 160/114. MD made aware and are okay with BP at present time. [facility] HospitalNrbvnk88-93-1522 Emergency department Note* Blank Sharif RN - 01/20/2024 11:26 PM EST Pt c/o 7/10 abdominal pain. Last dose of morphine 3 hours, ordered q4 hours. Messaged provider for orders. No new orders placed by provider. at11:34 PM [facility] HospitalQcafzq41-78-6997 Emergency department Note* Blank Sharif RN - [...] 01/20/2024 11:28 AM EST Emergency Department Encounter [facility] EMERGENCY DEPT Patient: Roro Valdivia : [...] 0 min Stress: Stress Concern Present (12/14/2023) [place] [employer] - Occupational Stress Questionnaire Feeling of Stress : Very much Social Connections: Socially Isolated (12/14/2023) Social Connection and Isolation Panel [NHANES] Frequency of Communication with Friends and Family: Once a week Frequency of Social Gatherings with Friends and Family: More than three times a week Attends Episcopal Services: Never Active Member of Clubs or [...] gross facial drooping. No obvious neurologic deficits. 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 Moves all 4 extremities spontaneously. [...] Department Physician in the absence of a lead systems engineer. see their note for interpretation of EKG. [...] MEDICATIONS: New Prescriptions No medications on file @[facility]([id number]:LAST:1)@ (Please note: Portions of this note were completed with a voice recognition program. Efforts were made to edit the dictations but occasionally words and phrases are mis-transcribed.) Form v2016.J.5-cn Kev Carballo PA-C Acute [facility] Kev Carballo PA-C 01/20/24 1547 Cosigned by [...] Calvin Stephens MD 01/20/241956 documented in this [facility]12-11-2024 Emergency department Note* Blank Sharif RN [...] current placement, thx. UpdatedED charge on this. [facility] HospitalFxrahs43-86-5784 Emergency department Note* Blank Sharif RN - 01/20/2024 9:15 PM EST Pt ambulated to bathroom independently with IV pole with a steady gait. Back to bed with no distress with exertion. Chest rise equal, axo x4. No needs expressed at this time. [facility] HospitalLonuot48-52-9220 Nurse Note* Blank Sharif RN - 01/20/2024 7:40 PM EST PT stating he is having a panic attack, pacing in room, c/o difficulty breathing and panic. CIWA 28on assessment, medicated per order. Pt stating relief within minutes. Bolus hung. Pt asked to return to bed, ambulated with a steady gate. Siderail up x1,no distress at this time. [facility] HospitalPbqlnx66-06-7271 History and physical note* Latonya Horton MD [...] 0 min Stress: Stress Concern Present (12/14/2023) [place] [employer] - Occupational Stress Questionnaire Feeling of Stress : Very much Social Connections: Socially Isolated (12/14/2023) Social Connection and Isolation Panel [NHANES] Frequency of Communication with Friends and Family: Once a week Frequency of Social Gatherings with Friends and Family: More than three times a week Attends Episcopal Services: Never Active Member of Clubs or [...] Division of Hospitalist Medicine [employer] Phone: [phone] [facility]12-11-2024 History and physical note* Latonya Horton MD [...] 0 min Stress: Stress Concern Present (12/14/2023) [place] [employer] - Occupational Stress Questionnaire Feeling of Stress : Very much Social Connections: Socially Isolated (12/14/2023) Social Connection and Isolation Panel [NHANES] Frequency of Communication with Friends and Family: Once a week Frequency of Social Gatherings with Friends and Family: More than three times a week Attends Episcopal Services: Never Active Member of Clubs or [...] at 4:36 PM Division of Hospitalist Medicine [facility] documented in this [facility]12-11-2024 Emergency department Note* Savanna Carvalho RN - 01/20/2024 3:46 PM EST Pt medicated per maxi [facility] HospitalJvrigb78-56-6022 Physician Emergency department Note* Kev Carballo PA-C - 01/20/2024 11:28 AM EST Emergency Department Encounter [facility] EMERGENCY DEPT Patient: Roro Valdivia : [...] 06/27/2022 Alcohol withdrawal with inpatient treatment, uncomplicated ([facility]) 03/15/2022 GERD (gastroesophageal reflux disease) History of pancreatitis 01/07/2023 Hypertension Pancreatitis Seizures ([facility]) SVT (supraventricular tachycardia) ([facility]) Tourette syndrome Past Surgical History: Procedure Laterality [...] 0 min Stress: Stress Concern Present (12/14/2023) [place] [employer] - Occupational Stress Questionnaire Feeling of Stress : Very much Social Connections: Socially Isolated (12/14/2023) Social Connection and Isolation Panel [NHANES] Frequency of Communication with Friends and Family: Once a week Frequency of Social Gatherings with Friends and Family: More than three times a week Attends Episcopal Services: Never Active Member of Clubs or [...] gross facial drooping. No obvious neurologic deficits. 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 Moves all 4 extremities spontaneously. [...] Department Physician in the absence of a lead systems engineer. see their note for interpretation of EKG. [...] MEDICATIONS: New Prescriptions No medications on file @[facility]([id number]:LAST:1)@ (Please note: Portions of this note were completed with a voice recognition program. Efforts were made to edit the dictations but occasionally words and phrases are mis-transcribed.) Form [id number].[id number] Kev Carballo PA-C [facility] Kev Carballo PA-C 01/20/24 1547 Cosigned by Calvin Stephens MD at 01/20/2024 7:57 PM EST [facility] HospitalUbvwpp58-92-2297 Physician Emergency department Note* Calvin Stephens MD - 01/20/2024 11:28 AM EST Emergency Department Encounter [facility] EMERGENCY DEPT Patient: Roro Valdivia : [...] MD 01/20/24 1532 Calvin Stephens MD 01/20/241956 [facility] Phone: [phone]) 296-883211-29-2024 Emergency department Note* Gracy Dyer DO - [...] 0 min Stress: Stress Concern Present (12/14/2023) [place] [employer] - Occupational Stress Questionnaire Feeling of Stress : Very much Social Connections: Socially Isolated (12/14/2023) Social Connection and Isolation Panel [NHANES] Frequency of Communication with Friends and Family: Once a week Frequency of Social Gatherings with Friends and Family: More than three times a week Attends Episcopal Services: Never Active Member of Clubs or [...] AM PATIENT REFERRED TO: Tam Hughes DO [address] [facility] [phone] Call in 3 days DISCHARGE MEDICATIONS: Discharge [...] to 7 days., Starting Thu01/08/2024, Until Thu01/15/2024 [id number], Normal (Comment: Please note this report has [...] emesis being bloody. Denies any fever/ chills. [facility] HospitalPbmumf34-44-3746 Physician Emergency department Note* Gracy Dyer DO [...] 0 min Stress: Stress Concern Present (12/14/2023) [place] [employer] - Occupational Stress Questionnaire Feeling of Stress : Very much Social Connections: Socially Isolated (12/14/2023) Social Connection and Isolation Panel [NHANES] Frequency of Communication with Friends and Family: Once a week Frequency of Social Gatherings with Friends and Family: More than three times a week Attends Episcopal Services: Never Active Member of Clubs or [...] AM PATIENT REFERRED TO: Tam [facility] [address] [facility] [place] [phone] Call in 3 days DISCHARGE MEDICATIONS: Discharge [...] to 7 days., Starting Thu01/08/2024, Until Thu01/15/2024 [id number], Normal (Comment: Please note this report has [...] Medicine Provider Gracy Dyer DO 01/08/24 0820 [employer] Phone: 1([phone]) 276-581811-07-2024 History of Present illness Narrative* Stone Ramsey MD - 12/17/2023 12:16 PM EST Chief complaint Chief Complaint Patient presents with Alcohol Intoxication Brought in by his mother from home. He was recently at [facility] for some time. They discontinued his psych [...] EST Hospitalist Progress Note 12/17/2023 9:14 AM [phone]: Please page me for patient care issues. [phone]: Please page [facility] night Hospitalist for any issues. Subjective: Admit Date: 12/13/2023 PCP: Tam Hughes, Room#: N3357/N3-934 A Interval History: Patient seen and examined 38-year-old male past medical history of alcohol use disorder, alcohol withdrawal seizure, pancreatitis, GERD, hypertension, SVT, smoking history, depression, admitted in November 2023 at [facility] following pancreatitis/abnormal LFT, hepatitis panel negative, right [...] tachycardia) (HCC) Tourette syndrome Adult diet Regular @[id number]@ Medications: desvenlafaxine, 50 mg, Oral, Daily folic [...] was made to ensureaccuracy; however, inadvertent computerized service engineer errors may be present. Maxwell Esposito MD [...] loss Fluid Accumulation: No significant fluid accumulation Cash Applications Manager Strength: Not Performed Patient Summary: Patient with [...] requesting detox. Patient recently discharged 11/27 from [facility] for EtOH withdrawal, pancreatitis. At that time [...] was always drinking. RD observed breakfast tray anyu640% intake. Pt reports enjoying Vanilla Ensure and would like to keep them coming while admitted. Reports UBW 260#, with no recent weight changes. CBW via bedscale 256#. Denies n/v/d/c, chewing or swallowing issues. Estimated Daily Nutrient Needs: Energy Requirements Based On: Kcal/kg Weight Used for Energy Requirements: [place] Weight for Energy Calculation (kg): 73 kg Total Energy Requirements (kcals/day): 5021-4530 kcal/day (25-30) Weight Used for Protein Requirements: [place] Weight in Kg Used for Protein Requirements: 73 kg Estimated Total Protein (g/day): 80-95 g/day (1.1-1.3) Estimated Daily Total Fluid (ml/day): 5441-8014 ml/day Nutrition Related Findings: Froylan: 19. I&O: [...] soon to determine Lizeth Randall RD Contact: *[phone] * Stone Ramsey MD - 12/16/2023 10:24 AM EST Chief complaint Chief Complaint Patient presents with Alcohol Intoxication Brought in by his mother from home. He was recently at [facility] for some time. They discontinued his psych [...] EST Hospitalist Progress Note 12/16/2023 8:41 AM [phone]: Please page me for patient care issues. [phone]: Please page [facility] night Hospitalist for any issues. Subjective: Admit Date: 12/13/2023 PCP: Tam Hughes, Room#: N3-357/N3-357 A Interval History: Patient seen and examined 38-year-old male past medical history of alcohol use disorder, alcohol withdrawal seizure, pancreatitis, GERD, hypertension, SVT, smoking history, depression, admitted in November 2023 at [facility] following pancreatitis/abnormal LFT, hepatitis panel negative, right [...] tachycardia) (HCC) Tourette syndrome Adult diet Regular @[id number]@ Medications: desvenlafaxine, 50 mg, Oral, Daily folic [...] was made to ensureaccuracy; however, inadvertent computerized service engineer errors may be present. Maxwell Esposito MD Division of Hospitalist Medicine [facility] PAGER: [facility] chat * Fatuma Hess APRN - COATER HAND - 12/15/2023 1:42 PM EST [facility] Department of Psychiatry Nurse Practitioner Note *Please contact [employer] Psychiatry Listed in Epic On-Call Finder Thu-Thu: From 1700 - 0800 and on Thursday & Thursday* TODAY'S DATE: 12/15/23 ADMISSION DATE: 12/13/2023 Hospital Day: 2 IDENTIFYING INFORMATION Name: Roro Valdivia : 1985 Consulting Practitioner: SEBASTIEN Zambrano SUBJECTIVE: CHIEF COMPLAINT: CC: Chief Complaint Patient presents with Alcohol Intoxication Brought in by his mother from home. He was recently at [facility] for some time. They discontinued his psych [...] 38 y.o., [facility] (HCC) on 12/13/2023. PMH of alcohol withdrawal seizures, alcohol withdrawal syndrome, panic attacks/anxiety, history of pancreatitis, polysubstance abuse, GERD, tourette's and SVT. Pt with recent admission to [facility] (11/16- 11/27) withelevated LFTs, at that time [...] take Xanax. Discussed OP follow up with [facility], states he canno longer see [...] mg, 50 mg, Oral, Daily, Fatuma Hess, DIRECTOR OF AUTOMATION - COATER HAND, 50 mgat 12/15/23 0940 doxepin (SINEquan) capsule [...] mg, 16.2 mg, Oral, Q4H, Ron Fonseca, DIRECTOR OF AUTOMATION - COATER HAND polyethylene glycol (PEG) 3350 (Miralax) packet 17 g, 17 g, Oral, Daily PRN, Ant Carty MD risperiDONE (RisperDAL) tablet 0.5 mg, 0.5 mg, Oral, Nightly, Fatuma Hess, DIRECTOR OF AUTOMATION - COATER HAND, 0.5 mg at 12/14/232014 thiamine (Vitamin B1) [...] Diagnosis Date Alcohol withdrawal syndrome without complication ([facility]) 06/27/2022 Alcohol withdrawal with inpatient treatment, uncomplicated ([facility]) 03/15/2022 GERD (gastroesophageal reflux disease) History of pancreatitis 01/07/2023 Hypertension Pancreatitis Seizures ([facility]) SVT (supraventricular tachycardia) ([facility]) Tourette syndrome Family Psychiatric and Medical History: [...] More than three times a week Attends Episcopal Services: Never Active Member of Clubs or [...] 0 min Stress: Stress Concern Present (12/14/2023) [place] [employer] - Occupational Stress Questionnaire Feeling of Stress : Very much Social Connections: Socially Isolated (12/14/2023) Social Connection and Isolation Panel [NHANES] Frequency of Communication with Friends and Family: Once a week Frequency of Social Gatherings with Friends and Family: More than three times a week Attends Episcopal Services: Never Active Member of Clubs or [...] Year: Yes Utilities: Not At Risk (12/14/2023) [facility] Utilities Threatened with loss of utilities: No [...] 373 ms QTC Interval 459 ms P Lyman 53 degrees QRS Lyman -11 degrees T Wave Lyman -5 degrees NE Interval 148 ms Basic metabolic panel Collection [...] pt provided information to follow OP with [facility] On this day, 12/15/23, I spent total time 35 minutes preparing to see the pt, reviewing previous notes, obtaining/reviewing separately obtained, history, test results, [facility], counseling/educating the patient/family/caregiver and face to [...] EST Hospitalist Progress Note 12/15/2023 7:47 AM [phone]: Please page me for patient care issues. [phone]: Please page [facility] night Hospitalist for any issues. Subjective: Admit Date: 12/13/2023 PCP: Tam Hughes, DO Room#: N3-357/N3-357 A Interval History: Patient seen and examined 38-year-old male past medical history of alcohol use disorder, alcohol withdrawal seizure, pancreatitis, GERD, hypertension, SVT, smoking history, depression, admitted in November 2023 at [facility] following pancreatitis/abnormal LFT, hepatitis panel negative, right [...] tachycardia) (HCC) Tourette syndrome Adult diet Regular @[id number]@ Medications: desvenlafaxine, 50 mg, Oral, Daily doxepin, [...] was made to ensureaccuracy; however, inadvertent computerized service engineer errors may be present. Maxwell Esposito MD Division of Hospitalist Medicine [facility] PAGER: Epic chat * Ron Fonseca, JOSÉ ANTONIO - COATER HAND - 12/14/2023 2:20 PM EST Patient off unit to endoscopy, will attempt to see patient tomorrow. Continue phenobarbital and Ativan as ordered. * Maxwell Esposito MD - 12/14/2023 9:40 AM EST Hospitalist Progress Note 12/14/2023 9:40 AM [phone]: Please page me for patient care issues. [phone]: Please page [facility] night Hospitalist for any issues. Subjective: Admit Date: 12/13/2023 PCP: Tam Hughes, DO Room#: N3-357/N3-357 A Interval History: Patient seen and examined 38-year-old male past medical history of alcohol use disorder, alcohol withdrawal seizure, pancreatitis, GERD, hypertension, SVT, smoking history, depression, admitted in November 2023 at [facility] following pancreatitis/abnormal LFT, hepatitis panel negative, right upper quadrant ultrasonogram showed severe hepatic steatosis, echo at the time showed EF normal. Psychiatric medication was discontinued due to abnormal LFT during last admission. Patient mentioned that he has history of depression, psychiatric medication was discontinued last month following abnormal LFT at [facility]. He started drinking in excess since discharge from [facility]. Patient denies any suicidal ideation Admitted following [...] (HCC) Tourette syndrome Adult diet Clear liquid @[id number]@ Medications: sodium chloride, 100 mL/hr, Last Rate: [...] was made to ensureaccuracy; however, inadvertent computerized service engineer errors may be present. Maxwell Esposito MD Division of Hospitalist Medicine [facility] PAGER: Epic chat documented in this [facility]11-07-2024 Miscellaneous Notes* Care Coordination - Edwige Roldan RN - 12/17/2023 10:30 AM EST Care Management Progress Note Pt has DC orders in place. Met with pt, he would like to use his Transportation Benefits via [employer]. The # given to pt to call when ready for DC..[phone]. Location of quill picking machine operator was also given to pt. Length [...] Limits Permission given to speak with patient customer loyalty representative/caregiver as indicated: (Summer Valdivia [phone]) Confirmation of Payer with patient/family: Yes Payer [...] Daily Living Prescription Coverage: Yes Pharmacy Used: [id number] - [place], [place] - [address] [phone]. MEDS to BEDS @DC Medication Management: Independent [...] Please call the Main Endoscopy Dept at [phone] for questions. Report called to floor RN * Op Note - Hari Kline MD - 12/14/2023 1:37 PM [facility] Roro Valdivia Procedure Date: 12/14/2023 1:37 PM Gender: Male Date of : 1985 Age: 38 Admit Type: Inpatient Note Status: Finalized Endoscopist: Hari Kline MD, [id number] Procedure: Upper GI endoscopy Indications: Hematemesis Findings: [...] may add carafate - [facility] diet as tolerated - [...] immediate complications. Procedure Code(s): --- Professional --- 86839, Esophagogastroduodenoscopy, flexible, transoral; with biopsy, single or multiple --- Technical --- 83378, Esophagogastroduodenoscopy, flexible, transoral; with biopsy, single or [...] without bleeding K92.0, Hematemesis CPT copyright 2021 [employer]. All rights reserved. The codes documented in this report are preliminary and upon chamber worker review may be revised to meet current compliance requirements. Hari Kline MD 12/14/2023 1:58:38 PM This report has been signed electronically. Number of Addenda: 0 Note Initiated On: 12/14/2023 1:37 PM documented in this [facility]11-07-2024 Note* Care Coordination - Edwige Roldan RN - 12/17/2023 10:30 AM EST Care Management Progress Note Pt has DC orders in place. Met with pt, he would like to use his Transportation Benefits via [employer]. The # given to pt to call when ready for DC..[phone]. Location of quill picking machine operator was also given to pt. Length of Stay (Days): 4 GMLOS: No GMLOS Documented [facility] [id number] Note* Care Coordination - Edwige Roldan RN - 12/17/2023 10:30 AM EST Care Management Progress Note Pt has DC orders in place. Met with pt, he would like to use his Transportation Benefits via [employer]. The # given to pt to call when ready for DC..[phone]. Location of quill picking machine operator was also given to pt. Length of Stay (Days): 4 GMLOS: No GMLOS Documented [facility] [id number] Hospital course Narrative* Maxwell Esposito MD - [...] history, depression, admitted in November 2023 at [facility] following pancreatitis/abnormal LFT, hepatitis panel negative, right upper quadrant ultrasonogram showed severe hepatic steatosis, echo at the time showed EF normal. Psychiatric medication was discontinued due to abnormal LFT during last admission. Patient mentioned that he has history of depression, psychiatric medication was discontinued last month following abnormal LFT at [facility]. He started drinking in excess since discharge from [facility]. Patient was treated for alcohol use disorder/detox, [...] on Effexor/risperidone. Patient needs to follow-up with [facility] behavioral outpatient clinic after discharge. On [...] Complexity: follow up within 7-14 calendar days (21450) [] Severe Complexity: follow up within 7 calendar days (25398) FOLLOW UP TESTING, PENDING RESULTS OR REFERRALS AT TRANSITIONAL CARE VISIT: [] Yes [] No PENDING STUDIES: DISPOSITION: Home FACILITY/HOME CARE AGENCY NAME: Follow up with Tam Hughes DO [address] [facility] [address] Schedule an appointment as soon as possible for a visit in 1 week(s) CBC, CMP panel in 1 week [facility] G[facility]ology - [address] [facility] [address] Schedule an appointment as soon as possible for a visit in 1 month(s) [facility] [place] [facility] [address] [facility] [phone] Schedule an appointment as soon as possible for a visit [facility] [address] [place] [address] Walk in hours: Thursday-Thursday [phone] INSTRUCTIONS TO MA/SW: Please call patient on [...] MD 12/17/2023, 9:22 AM documented in this [facility]11-06-2024 Plan of care note* Care Plan [...] Interventions Goal: Assess Nutritional Intake Outcome: Progressing [place] [id number] Note* Care Coordination - Edwige Roldan RN - 12/16/2023 3:20 PM EST Care Management Progress Note Pt remains on Phenobarb Taper. Plan to be DC to home @DC. CM to follow. Length of Stay (Days): 3 GMLOS: No GMLOS Documented [place] [id number] Note* Care Coordination - Edwige Roldan RN - 12/16/2023 3:20 PM EST Care Management Progress Note Pt remains on Phenobarb Taper. Plan to be DC to home @DC. CM to follow. Length of Stay (Days): 3 GMLOS: No GMLOS Documented [place] [id number] Plan of care note* Care Plan - Yayo Washington RN - 12/15/2023 9:59 PM EST Problem: Pain - Adult Goal: Verbalizes/displays adequate comfort level or baseline comfort level Outcome: Progressing Problem: Safety - Adult Goal: Free from fall injury Outcome: Progressing [place] [id number] Plan of care note* Care Plan - [...] Goal: Free from restraint events Outcome: Progressing [facility] [id number] Note* Care Coordination - Edwige Roldan RN - 12/15/2023 1:30 PM EST Care Managment Initial Assessment Date: 12/15/2023 Patient Name: Roro Valdivia : 1985 Patient Information Source of Information: Patient Cognition/Language: WFL - Within Functional Limits Permission given to speak with patient customer loyalty representative/caregiver as indicated: (Summer Valdivia [phone]) Confirmation of Payer with patient/family: Yes Payer Name: [place] [employer] ODM : No Confirmation of Primary [...] Daily Living Prescription Coverage: Yes Pharmacy Used: [facility] - [place], [place] - [address] [phone]. MEDS to BEDS @DC Medication Management: Independent [...] up. CM to follow. Edwige Roldan RN [facility] [id number] Note* Care Coordination - Edwige Roldan RN - 12/15/2023 1:30 PM EST Care Managment Initial Assessment Date: 12/15/2023 Patient Name: Roro Valdivia : 1985 Patient Information Source of Information: Patient Cognition/Language: WFL - Within Functional Limits Permission given to speak with patient customer loyalty representative/caregiver as indicated: (Summer Valdivia [phone]) Confirmation of Payer with patient/family: Yes Payer Name: [place]/[employer] ODM : No Confirmation of Primary [...] Daily Living Prescription Coverage: Yes Pharmacy Used: [facility] - [place], [place] - [address] [phone]. MEDS to BEDS @DC Medication Management: Independent [...] up. CM to follow. Edwige Roldan RN [facility] [id number] Plan of care note* Care Plan - [...] Recommendations to address these barriers include none. [facility]11-04-2024 Note* Perioperative Nursing Note - Juan Becerril RN - 12/14/2023 2:02 PM EST POST ENDOSCOPY PROCEDURE TRANSFER REPORT Physician: Dr. Kline Procedure completed: EGD Specimens obtained: Antrum bx, Distal Esophagus bx Medications administered: 600 mg Propofol Findings: see GI note Complications: none, pt tolerated well Please call the Main Endoscopy Dept at [phone] for questions. Report called to floor RN [place] [id number] Note* Perioperative Nursing Note - Juan Becerril RN - 12/14/2023 2:02 PM EST POST ENDOSCOPY PROCEDURE TRANSFER REPORT Physician: Dr. Kline Procedure completed: EGD Specimens obtained: Antrum bx, Distal Esophagus bx Medications administered: 600 mg Propofol Findings: see GI note Complications: none, pt tolerated well Please call the Main Endoscopy Dept at [phone] for questions. Report called to floor RN [place] [address]-04-2024 Note* Op Note - Hari Kline MD - 12/14/2023 1:37 PM EST Endoscopy Center- [facility] Patient Name: Roro Valdivia Procedure Date: 12/14/2023 1:37 PM Gender: Male Date of : 1985 Age: 38 Admit Type: Inpatient Note Status: Finalized Endoscopist: Hari Kline MD, [id number] Procedure: Upper GI endoscopy Indications: Hematemesis Findings: [...] may add carafate - Follow up with [facility] - Advance diet as tolerated [...] immediate complications. Procedure Code(s): --- Professional --- 07627, Esophagogastroduodenoscopy, flexible, transoral; with biopsy, single or multiple --- Technical --- 87969, Esophagogastroduodenoscopy, flexible, transoral; with biopsy, single or [...] without bleeding K92.0, Hematemesis CPT copyright 2021 [employer]. All rights reserved. The codes documented in this report are preliminary and upon chamber worker review may be revised to meet current compliance requirements. Hari Kline MD 12/14/2023 1:58:38 PM This report has been signed electronically. Number of Addenda: 0 Note Initiated On: 12/14/2023 1:37 PM [facility] [id number] Note* Op Note - Hari Kline MD - 12/14/2023 1:37 PM EST Endoscopy Center- [facility] Patient Name: Roro Valdivia Procedure Date: 12/14/2023 1:37 PM Gender: Male Date of : 1985 Age: 38 Admit Type: Inpatient Note Status: Finalized Endoscopist: Hari Kline MD, [id number] Procedure: Upper GI endoscopy Indications: Hematemesis Findings: [...] may add carafate - Follow up with [facility] - Advance diet as tolerated [...] immediate complications. Procedure Code(s): --- Professional --- 59758, Esophagogastroduodenoscopy, flexible, transoral; with biopsy, single or multiple --- Technical --- 39260, Esophagogastroduodenoscopy, flexible, transoral; with biopsy, single or [...] without bleeding K92.0, Hematemesis CPT copyright 2021 [employer]. All rights reserved. The codes documented in this report are preliminary and upon chamber worker review may be revised to meet current compliance requirements. Hari Kline MD 12/14/2023 1:58:38 PM This report has been signed electronically. Number of Addenda: 0 Note Initiated On: 12/14/2023 1:37 PM [facility]11-04-2024 Consult note* Ron Fonseca, JOSÉ ANTONIO - COATER [employer] - 12/14/2023 11:52 AM ESTAssociated Order(s): IP CONSULT TO ADDICTION MEDICINE Images from the original note were not included. Addiction Medicine Consultation H&P Patient: Roro Valdivia Admit Date: 12/13/2023 Primary Care Physician: Tam Hughes DO Reason for Consultation: alcohol detox. Chief Complaint Patient presents with Alcohol Intoxication Brought in by his mother from home. He was recently at [facility] for some time. They discontinued his psych [...] [x] Chem Dep IOP: CD IOP through [facility] [x] Detoxifications: several. [x] 12 Step Meetings: in the past. [] Medication Assisted Treatment: denies. Psychiatric History: Current Psychiatrist: [facility] in the past, none currently [...] 0 min Stress: Stress Concern Present (10/16/2023) [place] [employer] - Occupational Stress Questionnaire Feeling of Stress : Very much Social Connections: Socially Isolated (10/16/2023) Social Connection and Isolation Panel [NHANES] Frequency of Communication with Friends and Family: Never Frequency of Social Gatherings with Friends and Family: Never Attends Episcopal Services: Never Active Member of Clubs or [...] History of pancreatitis 01/07/2023 Hypertension Pancreatitis Seizures ([facility]) SVT (supraventricular tachycardia) ([facility]) Tourette syndrome Past Surgical History: Procedure Laterality [...] 373 ms QTC Interval 459 ms P Lyman 53 degrees QRS Lyman -11 degrees T Wave Lyman -5 degrees NE Interval 148 ms Basic metabolic panel Collection [...] symptoms. Medical stabilization. Labs/tests/tasks to review: none. Provider Relations Consultant recommendations: none. Remaining medical management per primary team. Will follow. JOSÉ ANTONIO Jiménez CNP Addiction Medicine 12/14/2023 at 11:52 AM I spent over 51% of total time 50 minutes counseling and coordinating care regarding patient's chemical dependency status. Note: Narrative portions of note written using [employer] (formerly known as [employer]) dictation software. Efforts are made to dictate clearly and proofread but errors in dictation still may occur. Please reach out to author with any clarifying questions. [facility] [id number] Consult note* JOSÉ ANTONIO Martin CNP - [...] mother from home. He was recently at [facility] for some time. They discontinued his psych [...] [x] Chem Dep IOP: CD IOP through [facility] [x] Detoxifications: several. [x] 12 Step Meetings: in the past. [] Medication Assisted Treatment: denies. Psychiatric History: Current Psychiatrist: [facility] in the past, none currently [...] 0 min Stress: Stress Concern Present (10/16/2023) [place] [employer] - Occupational Stress Questionnaire Feeling of Stress : Very much Social Connections: Socially Isolated (10/16/2023) Social Connection and Isolation Panel [NHANES] Frequency of Communication with Friends and Family: Never Frequency of Social Gatherings with Friends and Family: Never Attends Episcopal Services: Never Active Member of Clubs or [...] 373 ms QTC Interval 459 ms P Lyman 53 degrees QRS Lyman -11 degrees T Wave Lyman -5 degrees NE Interval 148 ms Basic metabolic panel Collection [...] symptoms. Medical stabilization. Labs/tests/tasks to review: none. Provider Relations Consultant recommendations: none. Remaining medical management per primary team. Will follow. Ron Fonseca APRN - [employer] Addiction Medicine 12/14/2023 at 11:52 AM I [...] Alcohol use disorder, admitted last month to [facility] for pancreatitis/alcohol abuse,psychiatric medication was discontinued due [...] Pt was admitted in November 2023 at [facility] following pancreatitis/abnormal LFT, hepatitis panel negative, right [...] disease) 06/06/2018 Hypertension 06/06/2018 SVT (supraventricular tachycardia) ([facility]) 06/06/2018 Tourette syndrome 06/06/2018 Alcohol induced acute pancreatitis without necrosis or infection 03/29/2018 Polysubstance use disorder 03/16/2022 Cocaine abuse ([facility]) 03/16/2022 Elevated liver enzymes 03/16/2022 Panic disorder 03/16/2022 Alcohol abuse 07/11/2022 Benzodiazepine withdrawal with complication ([facility]) 11/04/2022 Opioid withdrawal ([facility]) 11/04/2022 Amphetamine withdrawal ([facility]) 11/04/2022 Pneumonia 11/04/2022 Palpitations 11/04/2022 Other specified [...] 0 min Stress: Stress Concern Present (10/16/2023) [place] [employer] - Occupational Stress Questionnaire Feeling of Stress : Very much Social Connections: Socially Isolated (10/16/2023) Social Connection and Isolation Panel [NHANES] Frequency of Communication with Friends and Family: Never Frequency of Social Gatherings with Friends and Family: Never Attends Episcopal Services: Never Active Member of Clubs or [...] AM ESTAssociated Order(s): IP CONSULT TO PSYCHIATRY [facility] Department of Psychiatry Nurse Practitioner Note *Please contact [employer] Psych[facility] Listed in [facility] On-Call Finder Thu-Thu: From 1700 - 0800 and on Thursday & Thursday* TODAY'S DATE: 12/14/23 ADMISSION DATE: 12/13/2023 IDENTIFYING INFORMATION Name: Roro Valdivia : 1985 Reason for Consult: Alcohol use disorder, admitted last month to [facility] for pancreatitis/alcohol abuse, psychiatric medication was discontinued due to abnormal LFT, patient has significant history of depression Consulting Practitioner[facility] Day: 1 SUBJECTIVE: CHIEF COMPLAINT: CC: Chief Complaint Patient presents with Alcohol Intoxication Brought in by his mother from home. He was recently at [facility] for some time. They discontinued his psych [...] Principal Problem: Alcoholic intoxication without complication (CMS/HCC) ([facility]) Psychiatric CC: anxiety and depression For every [...] 38 y.o., male who was hospitalized at [facility] for Alcoholic intoxication without complication ([facility]) ([facility]) on 12/13/2023. PMH of alcohol withdrawal seizures, alcohol withdrawal syndrome, panic attacks/anxiety, history of pancreatitis, polysubstance abuse, GERD, tourette's and SVT. Pt with recent admission to [facility] (11/16-11/27) with elevated LFTs, at that time [...] mg, 50 mg, Oral, Daily, Fatuma Hess, DIRECTOR OF AUTOMATION - COATER HAND [Transfer Hold] doxepin (SINEquan) capsule 10 mg, [...] mg, Oral, Nightly, Fatuma Hess APRN - COATER [employer] sodium chloride 0.9 % infusion, 100 mL/hr, [...] Diagnosis Date Alcohol withdrawal syndrome without complication ([facility]) 06/27/2022 Alcohol withdrawal with inpatient treatment, uncomplicated ([facility]) 03/15/2022 GERD (gastroesophageal reflux disease) History of pancreatitis 01/07/2023 Hypertension Pancreatitis Seizures ([facility]) SVT (supraventricular tachycardia) ([facility]) Tourette syndrome Past Surgical History: Procedure Laterality Date APPENDECTOMY Family History Problem Relation Name Age of Onset No Known Problems Mother No Known Problems Father Social History: Single, lives in [place], no family support. Has GED, unemployed. No [...] 0 min Stress: Stress Concern Present (10/16/2023) [place] [employer] - Occupational Stress Questionnaire Feeling of Stress : Very much Social Connections: Socially Isolated (10/16/2023) Social Connection and Isolation Panel [NHANES] Frequency of Communication with Friends and Family: Never Frequency of Social Gatherings with Friends and Family: Never Attends Episcopal Services: Never Active Member of Clubs or [...] Last Year: Yes Utilities: Patient Declined (10/16/2023) [facility] Utilities Threatened with loss of utilities: Patient [...] 373 ms QTC Interval 459 ms P Lyman 53 degrees QRS Lyman -11 degrees T Wave Lyman -5 degrees NE Interval 148 ms Basic metabolic panel Collection [...] day of the visit. documented in this [facility]11-04-2024 Consult note* Hari Kline MD - 12/14/2023 11:01 AM ESTAssociated Order(s): IP CONSULT TO GI Department of Internal Medicine Gastroenterology Attending Consult Note Reason for Consult: The patient was seen in consultation at the request of Dr. Vaibhav Arreola re: Alcohol use disorder, admitted last month to [facility] for pancreatitis/alcohol abuse,psychiatric medication was discontinued due [...] Pt was admitted in November 2023 at [facility] following pancreatitis/abnormal LFT, hepatitis panel negative, right [...] disease) 06/06/2018 Hypertension 06/06/2018 SVT (supraventricular tachycardia) ([facility]) 06/06/2018 Tourette syndrome 06/06/2018 Alcohol induced acute pancreatitis without necrosis or infection 03/29/2018 Polysubstance use disorder 03/16/2022 Cocaine abuse ([facility]) 03/16/2022 Elevated liver enzymes 03/16/2022 Panic disorder 03/16/2022 Alcohol abuse 07/11/2022 Benzodiazepine withdrawal with complication ([facility]) 11/04/2022 Opioid withdrawal ([facility]) 11/04/2022 Amphetamine withdrawal ([facility]) 11/04/2022 Pneumonia 11/04/2022 Palpitations 11/04/2022 Other specified [...] 0 min Stress: Stress Concern Present (10/16/2023) [place] [employer] - Occupational Stress Questionnaire Feeling of Stress : Very much Social Connections: Socially Isolated (10/16/2023) Social Connection and Isolation Panel [NHANES] Frequency of Communication with Friends and Family: Never Frequency of Social Gatherings with Friends and Family: Never Attends Episcopal Services: Never Active Member of Clubs or [...] by Hari Kline MD 12/14/2023 1:34 PM [employer] Work Phone: 1(352) 911-848211-04-2024 Consult note* JOSÉ ANTONIO Scruggs CNP - 12/14/2023 10:51 AM ESTAssociated Order(s): IP CONSULT TO PSYCHIATRY [facility] Department of Psychiatry Nurse Practitioner Note *Please contact [employer] Psychiat[facility] Listed in [facility] On-Call Finder Thu-Thu: From 1700 - 0800 and on Thursday & Thursday* TODAY'S DATE: 12/14/23 ADMISSION DATE: 12/13/2023 IDENTIFYING INFORMATION Name: Roro Valdivia : 1985 Reason for Consult: Alcohol use disorder, admitted last month to [facility] for pancreatitis/alcohol abuse, psychiatric medication was discontinued due to abnormal LFT, patient has significant history of depression Consulting Practitioner: SEBASTIEN Zambrano Hospital Day: 1 SUBJECTIVE: CHIEF COMPLAINT: CC: Chief Complaint Patient presents with Alcohol Intoxication Brought in by his mother from home. He was recently at [facility] for some time. They discontinued his psych meds due to pancreatitis (ETOH induced). Upon arrival to the room he was not answering questionsbut then was able to do so. He states he does have hallucinations sometimes but denies SI/HI. Is complaining of abdominal pain 11/18. Was having nausea and vomiting in triage and earlier this morning. Pancreatitis Principal Problem: Alcoholic intoxication without complication ([facility]) ([facility]) Psychiatric CC: anxiety and depression For every [...] 38 y.o., male who was hospitalized at [facility] for Alcoholic intoxication without complication ([facility]) ([facility]) on 12/13/2023. PMH of alcohol withdrawal seizures, alcohol withdrawal syndrome, panic attacks/anxiety, history of pancreatitis, polysubstance abuse, GERD, tourette's and SVT. Pt with recent admission to [facility] (11/16-11/27) with elevated LFTs, at that time [...] mg, 50 mg, Oral, Daily, Fatuma Hess, DIRECTOR OF AUTOMATION - COATER HAND [Transfer Hold] doxepin (SINEquan) capsule 10 mg, [...] mg, 0.5 mg, Oral, Nightly, Fatuma Hess, DIRECTOR OF AUTOMATION - COATER HAND sodium chloride 0.9 % infusion, 100 mL/hr, [...] Diagnosis Date Alcohol withdrawal syndrome without complication ([facility]) 06/27/2022 Alcohol withdrawal with inpatient treatment, uncomplicated ([facility]) 03/15/2022 GERD (gastroesophageal reflux disease) History of pancreatitis 01/07/2023 Hypertension Pancreatitis Seizures ([facility]) SVT (supraventricular tachycardia) ([facility]) Tourette syndrome Past Surgical History: Procedure Laterality Date APPENDECTOMY Family History Problem Relation Name Age of Onset No Known Problems Mother No Known Problems Father Social History: Single, lives in [place], no family support. Has GED, unemployed. No [...] 0 min Stress: Stress Concern Present (10/16/2023) [place] [employer] - Occupational Stress Questionnaire Feeling of Stress : Very much Social Connections: Socially Isolated (10/16/2023) Social Connection and Isolation Panel [NHANES] Frequency of Communication with Friends and Family: Never Frequency of Social Gatherings with Friends and Family: Never Attends Episcopal Services: Never Active Member of Clubs or [...] Last Year: Yes Utilities: Patient Declined (10/16/2023) [facility] Utilities Threatened with loss of utilities: Patient [...] 373 ms QTC Interval 459 ms P Lyman 53 degrees QRS Lyman -11 degrees T Wave Lyman -5 degrees NE Interval 148 ms Basic metabolic panel Collection [...] record on the day of the visit. [facility] [id number] Hospital Discharge instructions* Discharge Instr - Activity* Maxwell Esposito MD - 12/14/2023 9:40 AM EST As tolerated * Discharge Instr - Diet* Maxwell Esposito MD - 12/14/2023 9:40 AM EST Regular diet * Attachments The following attachments cannot be sent through Care Everywhere. * Upper GI Endoscopy Discharge Instructions (Maldivian) documented in this [facility]11-04-2024 Emergency department Note* Debby Solomon - 12/14/2023 7:44 AM EST PATIENT ON WAY TO ANOTHER FLOOR [facility] [id number] Emergency department Note* Debby Solomon - 12/14/2023 [...] Violeta jordan in obtaining new VS. * Janine Lino RN - 12/13/2023 11:18 PM [...] on the floor. Floor cleaned up by ergonomics technician Karolyn. * Karolyn Mera - 12/13/2023 [...] Mary Houston - 12/13/2023 3:38 PM EST Juleit Parr At Pt Bedside To Provide Pt [...] 11:39 AM EST Emergency Department Encounter Location: [facility] EMERGENCY DEPT Patient: Roro Valdivia : [...] 373 ms QTC Interval 459 ms P Lyman 53 degrees QRS Lyman -11 degrees T Wave Lyman -5 degrees NE Interval 148 ms No orders to display [...] Impression 1. Alcoholic intoxication without complication (CMS/HCC) ([facility]) DISPOSITION Admit 12/13/2023 11:17:49 PM (Please note that portions of this note may have been completed with a voice recognition program. Efforts were made to edit the dictations but occasionally words are mis-transcribed.) Mattie Durbin DO Acute Care [facility] Mattie Durbin DO 12/13/23 2467 * Roro Bryant RN - 12/13/2023 11:39 AM EST Vomiting seems to have resolved. documented in this [facility]11-04-2024 Emergency department Note* Janine Lino RN - 12/14/2023 6:44 AM EST Patient telemetry admission -- awaiting telemetry transport to the floor at this time [facility] Emergency department Note* Janine Lino RN - 12/14/2023 6:22 AM EST Report called to RN on 3N at this time. Pt vitals stable and pt is ready to be put in for transport [place] [address]-04-2024 Emergency department Note* Violeta Edmonds - 12/14/2023 5:13 AM EST Pt given water by Apolonia ARAUZ. [place] [address]-04-2024 Emergency department Note* Timothy Saavedra MA - 12/14/2023 2:40 AM EST Violeta jordan in obtaining new VS. [place] [address]-03-2024 History and physical note* Ant Carty MD [...] by family. Patient recently discharged 11/27 from [facility] for EtOH withdrawal, pancreatitis. At that time [...] History of pancreatitis 01/07/2023 Hypertension Pancreatitis Seizures ([facility]) SVT (supraventricular tachycardia) (HCC) Tourette syndrome Past [...] 0 min Stress: Stress Concern Present (10/16/2023) [place] of Occupational Health - Occupational Stress Questionnaire Feeling of Stress : Very much Social Connections: Socially Isolated (10/16/2023) Social Connection and Isolation Panel [NHANES] Frequency of Communication with Friends and Family: Never Frequency of Social Gatherings with Friends and Family: Never Attends Episcopal Services: Never Active Member of Clubs or [...] MD Division of Hospitalist Medicine Inpatient Medical Services/[facility] [employer] Work Phone: 1(619) 923-296211-03-2024 History and physical note* Ant Carty MD [...] by family. Patient recently discharged 11/27 from [facility] for EtOH withdrawal, pancreatitis. At that time [...] History of pancreatitis 01/07/2023 Hypertension Pancreatitis Seizures ([facility]) SVT (supraventricular tachycardia) (HCC) Tourette syndrome Past [...] 0 min Stress: Stress Concern Present (10/16/2023) [place] of Occupational Health - Occupational Stress Questionnaire Feeling of Stress : Very much Social Connections: Socially Isolated (10/16/2023) Social Connection and Isolation Panel [NHANES] Frequency of Communication with Friends and Family: Never Frequency of Social Gatherings with Friends and Family: Never Attends Episcopal Services: Never Active Member of Clubs or [...] MD Division of Hospitalist Medicine Inpatient Medical Services/[facility] documented in this [place] [address]-03-2024 Emergency department Note* Janine Lino RN - 12/13/2023 11:18 PM EST Assumed care of pt for lunch coverage from JOSE GUADALUPE [place] [address]Jokmkx28-89-3513 Emergency department Note* Violeta Edmonds - 12/13/2023 11:05 PM EST at bedside. [address]Eqbkce06-12-1745 Emergency department Note* Savanna Jason, EMT - 12/13/2023 10:49 PM EST Clementine RN at bedside. [address]Pckycn66-50-5439 Emergency department Note* Violeta Edmonds - 12/13/2023 10:32 PM EST Pt stated to Savanna Jordan that he is having a panic attack. Apolonia ARAUZ at bedside. [address]Bpwiyf99-13-8093 Emergency department Note* Violeta Edmonds - 12/13/2023 10:11 PM EST Pt given ada rand by Apolonia ARAUZ. [address]Nxzmqk44-41-4793 Emergency department Note* Savanna Jason, MARIXA - 12/13/2023 6:18 PM EST DAYSI Parr at bedside taking vitals. [address]Rxekzu84-01-7326 Emergency department Note* Savanna Jason, EMT - 12/13/2023 6:07 PM EST Pt spilled beverage on the floor. Floor cleaned up by ergonomics technician Karolyn. [address]Mozsgk37-05-3691 Emergency department Note* Karolyn Mera - 12/13/2023 5:40 PM EST Pt at this time does not want to eat. [address]Bszbyy22-60-1363 Emergency department Note* Mary Houston - 12/13/2023 5:34 PM EST Refused Dinner Tray [address]Gldvcp08-45-7792 Emergency department Note* Mary Houston - 12/13/2023 4:49 PM EST JOSE GUADALUPE De La Fuente At Pt Bedside [address]Aunmcd67-70-5309 Emergency department Note* Mary Houston - 12/13/2023 4:04 PM EST NST Savanna At Pt Bedside Providing Pt With Another Urinal And Assisting Pt Back Into Bed, Cleaning UpUrine [address]Thdesx37-22-9233 Emergency department Note* Mary Houston - 12/13/2023 3:43 PM EST JOSE GUADALUPE De La Fuente At Pt Bedside To Disconnect Fluids [address]Gqkazh99-65-7278 Emergency department Note* Mary Houston - 12/13/2023 3:38 PM EST Juliet Parr At Pt Bedside To Provide Pt With Urinal [address]Zaubze92-48-4096 Emergency department Note* Karolyn Mera - 12/13/2023 2:20 PM EST Roro SHI at bedside [address]Isllqa51-68-1872 Emergency department Note* Karolyn Mera - 12/13/2023 2:13 PM EST Pt calling out help, Tyree SHI to see what pt needs [address]Wlpspz36-34-5246 Emergency department Note* Karolyn Mera - 12/13/2023 1:47 PM EST Tyree SHI at bedside [address]Bobyyr95-37-9483 NoteNOTE: This result is for medical treatment only. Analysis performed using non-forensic procedures. [place] [address]Jurbzg82-15-6647 Emergency department Note* Roro Bryant RN - 12/13/2023 12:52 PM EST Straight cath complete tolerated well. [address]Aflxco09-87-7696 Emergency department Note* Roro Bryant RN - 12/13/2023 12:47 PM EST Blood redrawn and sent to lab, tolerated well. [address]Phajoc65-05-1817 Emergency department Note* Socorro Lozada - 12/13/2023 12:37 PM EST EKG at bedside. [address]Cbwfhh52-55-2087 Emergency department Note* Roro Bryant RN - 12/13/2023 12:36 PM EST Patient did not want his mother in the room to sit with him. [address]Vniimn99-63-8991 Emergency department Note* Mary Houston - 12/13/2023 12:16 PM EST JOSE GUADALUPE De La Fuente At Pt Bedside To Assist With Getting A Urine Sample Through A Straight Catheter [address]Bcafwe37-29-7770 Emergency department Note* Mary Houston - 12/13/2023 12:12 PM EST JOSE GUADALUPE De La Fuente At Pt Bedside [address]Jpgrlw61-29-0406 Emergency department Note* Mary Houston - 12/13/2023 12:06 PM EST JOSE GUADALUPE De La Fuente At Pt Bedside To Check Vitals [address]Ewwyux40-52-2999 Emergency department Note* Mary Houston - 12/13/2023 11:55 AM EST Pt Changed Into Hospital Gowns And Socks. Skin Assessment Completed By JOSE GUADALUPE De La Fuente. Pt Wanded By Protective Services, 1 Bag Of Belongings Locked Into Cabinet. [address]Yxvypf08-20-3100 Emergency department Note* Mary Houston - 12/13/2023 11:49 AM EST JOSE GUADALUPE De La Fuente& Protective Services At Pt Bedside For Triage Process [address]Gdgebd45-77-4310 Emergency department Note* Mary Houston - 12/13/2023 11:43 AM EST Pt To Room 53 [address]Paxnov89-14-5073 Emergency department Note* Mary Houston - 12/13/2023 11:43 AM EST JOSE GUADALUPE De La Fuente & Protective Usama At Pt Bedside For IV Insertion [address]Moihkn23-03-0632 Emergency department Triage note* Roro Bryant RN - 12/13/2023 11:39 AM EST Vomiting seems to have resolved. [address]Lodnnz77-97-8066 Physician Emergency department Note* Idris Danielson MD [...] dictating provider for clarification.) Idris Danielson MD [facility] Idris Danielson MD 12/13/23 1432 [employer] Phone: [phone]) 826-546111-03-2024 Physician Emergency department Note* Mattie Durbin DO - 12/13/2023 11:39 AM EST Emergency Department Encounter Location: [facility] EMERGENCY DEPT Patient: Roro Valdivia : [...] 373 ms QTC Interval 459 ms P Lyman 53 degrees QRS Lyman -11 degrees T Wave Lyman -5 degrees NE Interval 148 ms No orders to display [...] [employer] Mattie Durbin DO 12/13/23 3762 [facility] HospitalSxkwgs04-68-7113 Telephone encounter Note* Telephone Encounter - Seema Sumner LPN - 12/01/2023 9:23 AM EDT Unable to contact patient X2 [facility] HospitalVzzsob35-77-3976 Miscellaneous Notes* Telephone Encounter - Seema Sumner LPN - 12/01/2023 9:23 AM EDT Unable to contact patient X2 * Telephone Encounter - Seema Sumner LPN - 11/30/2023 9:41 AM EDT S: Patient admitted to: [facility] 11/17/23 B: Discharged on : 11/28/23 A: Hospital follow up call initiated to discuss any medication changes, follow up appointments and discharge instructions: Acute pancreatitis without infection or necrosis R: No contact x 1 at : [phone] documented in this [facility]SSt. [facility]'s HospitalPdrynz25-80-5059 Telephone encounter Note* Telephone Encounter - Seema Sumner LPN - 11/30/2023 9:41 AM EDT S: Patient admitted to: [facility] 11/17/23 B: Discharged on : 11/28/23 A: Hospital follow up call initiated to discuss any medication changes, follow up appointments and discharge instructions: Acute pancreatitis without infection or necrosis R: No contact x 1 at : [phone] [facility] HospitalUatwdq42-01-1435 Hospital Discharge instructions* Discharge Instr - Activity* Cory Tidwell RN - 11/28/2023 3:25 PM EDT As tolerated or instructed by physician * Discharge Instr - Diet* Cory Tidwell RN - 11/28/2023 3:26 PM EDT Eat healthy foods, avoid processed foods high in sodium and added sugars * Attachments The following attachments cannot be sent through Care Everywhere. * Chronic Pancreatitis Discharge Instructions (Maldivian) documented in this [facility]10-19-2024 Hospital course Narrative* Akbar Prajapati MD - 11/28/2023 1:30 PM EDT Discharge Summary Roro Valdivia : 1985 ADMIT DATE: 11/17/2023 DISCHARGE DATE: 11/28/2023 PRIMARY CARE PHYSICIAN: Tam Hughes VISIT STATUS: Admission CODE STATUS: Full Code DISCHARGE DIAGNOSES: Principal Problem: Acute pancreatitis without infection or necrosis Active Problems: Moderate malnutrition (CMS/HCC) ([facility]) HOSPITAL COURSE: Roro Valdivia is a 38 [...] diagnosis management during his stay here at [facility]: Acute, acute on chronic, unstable/uncontrolled chronic problems/diagnoses: [...] Your Medications These medications were sent to [facility] - [place], [place] - [address] [facility], [place] [address] oxyCODONE 5 MG immediate release tablet DIET: Adult diet Regular; GI [place] (GERD/Peptic Ulcer) ACTIVITY: No restriction. COMPLEXITY OF FOLLOW UP: [] Moderate Complexity: follow up within 7-14 calendar days (99900) [] Severe Complexity: follow up within 7 calendar days (60113) FOLLOW UP TESTING, PENDING RESULTS OR REFERRALS [...] MD 11/28/2023, 1:30 PM documented in this [facility]10-19-2024 Miscellaneous Notes* Care Plan - Susan [...] to be weaned down. Discharge plan remains [facility] once medically ready. account services manager to follow and assist as needed. [...] and Oxycodone for pain. Discharge plan remains [facility] when medically ready. account services manager to follow and assist as needed. [...] Limits Permission given to speak with patient customer loyalty representative/caregiver as indicated: No (provides no emergency contact) Confirmation of Payer with patient/family: Payer Name: [employer] [place]: No Confirmation of Primary Care Physician: Confirmed [...] Daily Living Prescription Coverage: Yes Pharmacy Used: [place] [facility] Medication Management: Independent Transportation/Shopping: Independent [...] reports he plans to admit himself to [facility] in [place] as he reports he has been there before. DC plan: anticipate [facility] in [place], [place] Leonie Mckay RN * Care Coordination - VANITA Isidro - 11/24/2023 11:28 AM EDT Per Addiction Medicine Physician, Dr. Dov Vanegas, patient indicated that he has been at [facility] in [place] a while back and would be interested in going there again. Spoke with Marcia in admissions who states they do have a bed and are requesting clinicals be faxed to [phone]. Will continue to follow for rehab placement [...] these barriers include NA. documented in this [facility]10-18-2024 History of Present illness Narrative* Britney [...] (quadraceps) Fluid Accumulation: No significant fluid accumulation Cash Applications Manager Strength: Not Performed Nutrition Assessment: 38 year old man who remains admitted to [facility] with acute alcoholic pancreatitis. No surgical interventions [...] On: Kcal/kg Weight Used for Energy Requirements: [place] Weight for Energy Calculation (kg): 84 kg Total Energy Requirements (kcals/day): 3598-7810 (25-30 kcal/kg IBW) Weight Used for Protein Requirements: [place] Weight in Kg Used for Protein Requirements: 84 kg Estimated Total Protein (g/day): 84-101 (1.0-1.2 g protein/kg IBW) Estimated Daily Total Fluid (ml/day): per MD Nutrition Related Findings: A+Ox4. +bm 11/25 with active bowel sounds. No skin break down or edema documented. Labs: bilirubin(1.5), LFTs remain elevated Wound Type: None Current Nutrition Therapies: Adult diet Regular; GI E[place] (GERD/Peptic Ulcer) Current Oral Intake Average Meal Intake: 26-50%, 51-75% Average Supplements Intake: 76-100%, 51-75% Anthropometric Measures: Height: 185.4 cm (6' 1) Current Body Weight: 114 kg (252 lb) Weight Source: Stated Admission Body Weight: 114 kg (252 lb) (stated) Usual Body Weight: 122 kg (270 lb) (Per EMR --> 253# 11/06/22; 250# 06/25/23; 270# 08/10/23; 250# 10/16/23) % Weight Change (Calculated): -6.7 [place] Body Weight (lbs) (Calculated): 184 lbs [place] Body Weight (Kg) (Calculated): 84 kg % [place] Body Weight (Calculated): 137 % BMI (kg/m2) [...] Nutrition Supplement Britney Lau RDN, LDN, Contact: *[phone] * Akbar Prajapati MD - 11/27/2023 11:49 AM EDT Hospitalist Progress Note 11/27/2023 [phone]: Please page me ([phone]) for patient care issues. [phone]: Please page [facility] Hospitalist for any issues. Subjective: Admit Date: [...] fevers or chills. Adult diet Regular; GI [place] (GERD/Peptic Ulcer) @WXPR9CJFMRV@ 24HR INTAKE/OUTPUT: Intake/Output Summary (Last 24 hours) [...] MD Division of Hospitalist Medicine Inpatient Medical Services/[facility] PAGER: Epic chat * Akbar Prajapati MD - 11/26/2023 10:39 AM EDT Hospitalist Progress Note 11/26/2023 [phone]: Please page me ([phone]) for patient care issues. [phone]: Please page [facility] Hospitalist for any issues. Subjective: Admit Date: [...] fevers or chills. Adult diet Regular; GI [place] (GERD/Peptic Ulcer) @HKQU1BIGWVR@ 24HR INTAKE/OUTPUT: Intake/Output Summary (Last 24 hours) [...] MD Division of Hospitalist Medicine Inpatient Medical Services/[facility] PAGER: Epic chat * Akbar Prajapati MD - 11/25/2023 12:40 PM EDT Hospitalist Progress Note 11/25/[id number]: Please page me ([phone]) for patient care issues. [phone]: Please page [facility] Hospitalist for any issues. Subjective: Admit Date: [...] fevers or chills. Adult diet Regular; GI [place] (GERD/Peptic Ulcer) @VQRM9EJPBQD@ 24HR INTAKE/OUTPUT: Intake/Output Summary (Last 24 hours) [...] MD Division of Hospitalist Medicine Inpatient Medical Services/[facility] PAGER: Epic chat * Dov Vanegas MD [...] at this time. He plans to attend [facility] at time of discharge. No SI/HI or [...] 11/18/2023 [facility] 1985 [id number] Date/Time: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 history of residential treatment at [facility]. Patient patient is unable to identify any [...] alone in [place] [facility] [place] [facility] [place]. Patient reports he experiences housing instability and does not have any stable place to live. Patient reports that he has no contact with his mother and he has never met his father. Patient reports he does not have any siblings. Patient reports he was born and raised in [place] by primarily his mother's adoptive parents. Patient [...] GED while he was in the [employer] Patient reports he is not currently working. Patient denies SI/SSD. Cultural/Spirituality/Leisure: Patient denies any cultural needs or concerns at the current time. Patient denies any buddhism preference at the current time. Patient reports [...] [facility]. [facility] [place]. Patient has additional admissions to [facility]. Patient reports Hx of SI where he [...] suicide attempt by overdose. Patient wassent to [facility] then [facility] in [place] for stabilization. Patient has additional admissions to [facility]. Patient reports past history of suicide attempt [...] need to be in a psych morley. LUNCH COUNTER MANAGER asked if patient was at risk for harming himself or others while on the unit. He denied at current time. Patient reports that his mother feels that he needs mental health treatment as well. LUNCH COUNTER MANAGER explained that patient was currently on the unit for detox and addiction medicine needs. Patient is declining any assistance with addiction medicine and interested in walk-in appointment with [facility]. LUNCH COUNTER MANAGER offered to include information in patient's discharge paperwork and he was agreeable to this. Patient encouraged to engage in all activities that are offered to them while they are on the unit.Patient report needing additional current time. Patient encouraged to seek out [facility] unit staff should they identify any [...] to contact the dictating provider for clarification. [facility] [id number] Note* Care Coordination - VANITA Toribio - 08/11/2023 7:48 AM EDT Behavioral Health Psycho-Social Assessment (Social Work) Date: 08/11/2023 Patient Name: Roro Valdivia : 1985 Identifying Information: Patient is a 37-year-old male admitted to for detox and alcohol. Patient is known to addiction medicine team was previously on unit on 11/03/2022. Patient was sent directly to [facility] for residential treatment. Patient [facility] Patient reports that he went to [facility] for 3 months. He [...] Patient subsequently came in with yellow slip. LUNCH COUNTER MANAGER communicated with nursing pumping supervisor as well as Dr. Escobar. Presenting [...] attempt by overdose. Patient was sent to [facility] in [place] for stabilization. Patient has additional admissions to [facility]. Patient reports past history of suicide attempt [...] as well.Patient during last admission went to [facility] for residential treatment. Patient has history of residential treatment at [facility]. Patient patient is unable to identify any [...] alone in [facility]. Patient reports he experiences housing instability and does not have any stable place to live. Patient reports that he has no contact with his mother and he has never met his father. Patient reports he does not have any siblings. Patient reports he was born and raised in [facility] by primarily his mother's adoptive parents. Patient [...] his GED while he was in the [place]. Patient reports he is not currently working. Patient denies SI/SSD. Cultural/Spirituality/Leisure: Patient denies any cultural needs or concerns at the current time. Patient denies any buddhism preference at the current time. Patient reports [...] was [facility] then ultimately [facility] in [place]. Patient has additional admissions to [facility]. Patient reports Hx of SI where he [...] suicide attempt by overdose. Patient wassent to [facility] then ultimately generations in [place] for stabilization. Patient has additional admissions to [facility]. Patient reports past history of suicide attempt [...] need to be in a psych morley. LUNCH COUNTER MANAGER asked if patient was at risk for harming himself or others while on the unit. He denied at current time. Patient reports that his mother feels that he needs mental health treatment as well. LUNCH COUNTER MANAGER explained that patient was currently on the unit for detox and addiction medicine needs. Patient is declining any assistance with addiction medicine and interested in walk-in appointment with [facility]. LUNCH COUNTER MANAGER offered to include information in patient's discharge paperwork and he was agreeable to this. Patient encouraged to engage in all activities that are offered to them while they are on the unit.Patient report needing additional current time. Patient encouraged to seek out LUNCH COUNTER MANAGER unit staff should they identify any additional [...] to contact the dictating provider for clarification. [facility] HospitalAuvyjc54-43-7961 Emergency department Note* Janine Lino RN - 08/11/2023 2:42 AM EDT Pt being transported to with transporter and protective services. Pt in NAD and ambulatory to wheelchair upon leaving ED. Denied needs or concerns. Left with 2 bags of belongings and admission packet Janine Lino RN 08/11/23 0247 [facility] HospitalQewleb86-28-4819 Emergency department Note* Janine Lino RN - [...] EDT PS escort called for pt transfer [facility] Singh 08/11/23 0217 * Beatris Parada RN - 08/11/2023 2:00 AM EDT Report to JOSE GUADALUPE Mehta RN 08/11/23 0201 * Beatris Parada RN - 08/11/2023 1:56 AM EDT Report called to JOSE GUADALUPE Bhardwaj on 4E Beatris Parada RN 08/11/23 0156 * [facility] 12[facility]37 AM EDT Pt used urinal in [facility] Singh 08/11/23 0037 * [facility] - 08/11/2023 12:32 AM EDT JOSE GUADALUPE Mehta in [facility] Singh 08/11/23 0032 * Edilma Otoole - 08/10/2023 11:09 PM EDT Pt requesting meds for nausea. Edilma Otoole 08/10/23 2309 * Greer Singh - 08/10/2023 10:47 PM EDT Pt is standing at door, trying to come out of . Redirected to get back to bed bc of IV [facility] Singh 08/10/23 2248 * Janine Lino RN - 08/10/2023 10:34 PM EDT Pt reminded to keep arm straight for fluid infusion at this time - still has about 800mL remaining in bag Janine Lino RN 08/10/232233 * Greer Singh - 08/10/2023 10:23 PM EDT JOSE GUADALUPE Gonzalez at bedside [facility] Singh 08/10/232222 * Greer Singh - 08/10/2023 9:29 PM EDT JOSE GUADALUPE Gonzalez in rm for IV [facility] Singh 08/10/232128 * Janine Lino RN - 08/10/2023 9:08 PM EDT Pt told Dr. Jiang and ESTRELLA Angulo that he is not suicidal or homicidal at this time - denying any suicidal ideations Janine Lino RN 08/10/232229 * Greer Singh - 08/10/2023 9:07 PM EDT Kev DE LA ROSA in [facility] Singh 08/10/232107 * Greer Singh - 08/10/2023 9:05 PM EDT Pt says he is throwing up really bad, but on dry heaving [facility] Singh 08/10/232104 * [facility] Singh - 08/10/2023 8:52 PM EDT JOSE GUADALUPE Gonzalez in [facility] Singh 08/10/232051 * [facility] Singh - 08/10/2023 8:45 PM EDT Pt wanded by PS [facility] Singh 08/10/232044 * Janine Lino RN [...] this time Janine Lino RN 08/10/232046 * [facility] 08/10/2023 8:44 PM EDT Pt has 2 bags [facility] 08/10/232043 * [facility] Singh - 08/10/2023 8:[address] Jiang at bedside [facility] Singh 08/10/232042 * [facility] - 08/10/2023 8:42 PM EDT JOSE GUADALUPE Gonzalez at bedside [facility] 08/10/232041 * [facility] Singh - 08/10/2023 8:29 PM EDT Medic Brandy is in to get pt changed into gowns and non slip socks [facility] 08/10/232028 * [facility] - 08/10/2023 8:23 PM EDT Pt is tearful while laying in bed [facility] 08/10/232022 * [facility] - 08/10/2023 8:21 PM EDT Pt brought to by JOSE GUADALUPE Gonzalez via [facility] Singh 08/10/232021 * Tana Christensen PA-C - 08/10/2023 7:36 PM EDT Emergency Department Encounter [facility] EMERGENCY DEPT Patient: Roro Valdivia : [...] for clarification) Tana Christensen PA-C [facility] Tana Christensen PA-C 08/10/232026 * Kev Carballo PA-C - 08/10/2023 7:36 PM EDT Emergency Department Encounter [facility] EMERGENCY DEPT Patient: Roro Valdivia : [...] endorse seizures with detox in the past [place] I was wearing a N95, Surgical mask [...] 0 min Stress: Stress Concern Present (11/04/2022) [place] of Occupational Health - Occupational Stress Questionnaire Feeling of Stress : To some extent Social Connections: Socially Isolated (06/24/2023) Social Connection and Isolation Panel [NHANES] Frequency of Communication with Friends and Family: More than three times a week Frequency of Social Gatherings with Friends and Family: More than three times a week Attends Episcopal Services: Never Active Member of Clubs or [...] Slight (A) (none) Polychromasia Rare (A) (none) [place] Cells Rare (A) (none) Neutrophils % 37 [...] Department Physician in the absence of a lead systems engineer. see their note for interpretation of EKG. [...] MEDICATIONS: New Prescriptions No medications on file @[facility]([id number]:LAST:1)@ (Please note: Portions of this note were completed with a voice recognition program. Efforts were made to edit the dictations but occasionally words and phrases are mis-transcribed.) Form v2016.J.5-cn Kev Carballo PA-C [facility] Kev Carballo PA-C 08/11/23 0521 * Jossy Lynn MD - 08/10/2023 7:36 PM EDT Emergency Department Encounter [facility] EMERGENCY DEPT Patient: Roro Valdivia : [...] 08/11/23 0221 -- Right arm Focused exam: Nme-mwi-soqbjgtfl in no acute distress. Alert and oriented [...] Culture. Procedure Abnormality Status --------- ------ Complete Urinalysis[[id number]] Normal Final result Please view results for [...] Lynn MD 08/11/23 0252 documented in this [facility]07-02-2024 Emergency department Note* Brandy Guzman, EMT - 08/11/2023 2:41 AM EDT Transport here with protective services to escort pt to [facility], pt sent with 2 bags of belongings. Brandy Guzman EMT 08/11/23 0242 [facility] HospitalLklqob76-96-1070 Emergency department Note* [facility] - 08/11/2023 2:17 AM EDT PS escort called for pt transfer [facility] 08/11/23 0217 [facility] HospitalFzjghc80-37-7461 Emergency department Note* Beatris Parada RN - 08/11/2023 2:00 AM EDT Report to JOSE GUADALUPE Mehta RN 08/11/23 0201 [facility] HospitalRdhimi53-88-2558 Emergency department Note* Beatris Parada RN - 08/11/2023 1:56 AM EDT Report called to JOSE GUADALUPE Bhardwaj on 4E Beatris Parada RN 08/11/23 0156 [facility] HospitalOlpiqk28-67-1938 Emergency department Note* [facility] - 08/11/2023 12:37 AM EDT Pt used urinal in [facility] 08/11/23 0037 [address]Tsbccv41-36-3420 Emergency department Note* [facility] - 08/11/2023 12:32 AM EDT JOSE GUADALUPE Mehta in [facility] 08/11/23 0032 [facility] HospitalQridgd07-24-3746 Emergency department Note* Edilma Otoole - 08/10/2023 11:09 PM EDT Pt requesting meds for nausea. Edilma Otoole 08/10/23 2309 [facility] HospitalXofzcx16-83-4613 Emergency department Note* [facility] Singh - 08/10/2023 10:47 PM EDT Pt is standing at door, trying to come out of rm. Redirected to get back to bed bc of IV [facility] Singh 08/10/23 2248 [facility] HospitalJopfhs62-56-4712 Emergency department Note* Janine Lino RN - 08/10/2023 10:34 PM EDT Pt reminded to keep arm straight for fluid infusion at this time - still has about 800mL remaining in bag Janine Lino RN 08/10/23 2234 [facility] HospitalWxgelw44-86-1871 Emergency department Note* [facility] 08/10/2023 10:23 PM EDT JOSE GUADALUPE Gonzalez at bedside [facility] Singh 08/10/23 2223 [facility] HospitalVtezza20-25-2804 NoteNOTE: This result is for medical treatment only. Analysis performed using non-forensic procedures. [facility] HospitalDczrhf06-17-0497 Emergency department Note* [facility] Singh - 08/10/2023 9:29 PM EDT JOSE GUADALUPE Gonzalez in for IV Greer Singh 08/10/232128 [facility] HospitalBeocst95-47-3202 Emergency department Note* Janine Lino RN - 08/10/2023 9:08 PM EDT Pt told Dr. Jiang and ESTRELLA Angulo that he is not suicidal or homicidal at this time - denying any suicidal ideations Janine Lino RN 08/10/232229 [facility] HospitalPepucc83-69-3274 Emergency department Note* [facility] - 08/10/2023 9:07 PM EDT Kev DE LA ROSA in [facility] 08/10/232107 [facility] HospitalDiqhze39-01-2638 Emergency department Note* [facility] - 08/10/2023 9:05 PM EDT Pt says he is throwing up really bad, but on dry heaving [facility] 08/10/232104 [facility] HospitalIquuza31-95-9813 Emergency department Note* [facility] - 08/10/2023 8:52 PM EDT JOSE GUADALUPE Gonzalez in [facility] 08/10/232051 [facility] HospitalAnfvjh29-28-6064 Emergency department Note* [facility] - 08/10/2023 8:45 PM EDT Pt wanded by MARCOS [facility] 08/10/232044 [address]Yinbwv33-77-8027 Emergency department Note* Janine Lino RN - [...] at this time Janine Lino RN 08/10/232046 [facility] HospitalLuctiz63-82-2829 Emergency department Note* [facility] Singh - 08/10/2023 8:44 PM EDT Pt has 2 bags [facility] 08/10/232043 [facility] HospitalBpectd09-05-8810 Emergency department Note* [facility] 08/10/2023 8:[address] Jiang at bedside [facility] 08/10/232042 [facility] HospitalBmyauc33-78-5166 Emergency department Note* [facility] 08/10/2023 8:42 PM EDT JOSE GUADALUPE Gonzalez at bedside [facility] Singh 08/10/232041 [facility] HospitalKabcot81-35-7758 Emergency department Note* [facility] - 08/10/2023 8:29 PM EDT Medic Brandy is in rm to get pt changed into gowns and non slip socks [facility] 08/10/232028 [facility] HospitalKzvnnr46-51-4860 Emergency department Note* [facility] - 08/10/2023 8:23 PM EDT Pt is tearful while laying in bed [facility] 08/10/232022 [facility] HospitalSqjjxt17-83-2948 Emergency department Note* [facility] - 08/10/2023 8:21 PM EDT Pt brought to by JOSE GUADALUPE Gonzalez, via [facility] Winters 08/10/232021 [facility] HospitalBhxhyp02-78-9486 Physician Emergency department Note* Tana Christensen PA-C - 08/10/2023 7:36 PM EDT Emergency Department Encounter [facility] EMERGENCY DEPT Patient: Roro Valdivia : [...] [employer] Tana Christensen PA-C 08/10/232026 [employer] Phone: [phone] 852-416607-01-2024 Physician Emergency department Note* Kev Carballo PA-C - 08/10/2023 7:36 PM EDT Emergency Department Encounter [facility] EMERGENCY DEPT Patient: Roro Valdivia : [...] endorse seizures with detox in the past [place] I was wearing a N95, Surgical mask [...] Hypertension Pancreatitis Seizures (HCC) SVT (supraventricular tachycardia) ([facility]) Tourette syndrome Past Surgical History: Procedure Laterality [...] 0 min Stress: Stress Concern Present (11/04/2022) [place] [employer] Occupational Health - Occupational Stress Questionnaire Feeling of Stress : To some extent Social Connections: Socially Isolated (06/24/2023) Social Connection and Isolation Panel [NHANES] Frequency of Communication with Friends and Family: More than three times a week Frequency of Social Gatherings with Friends and Family: More than three times a week Attends Episcopal Services: Never Active Member of Clubs or [...] Department Physician in the absence of a lead systems engineer. see their note for interpretation of EKG. [...] MEDICATIONS: New Prescriptions No medications on file @[facility]([id number]:LAST:1)@ (Please note: Portions of this note were completed with a voice recognition program. Efforts were made to edit the dictations but occasionally words and phrases are mis-transcribed.) Form v2016.J.5-cn Kev Carballo PA-C [facility] Kev Carballo PA-C 08/11/23 0521 [facility] HospitalYsbunl58-86-9615 Physician Emergency department Note* Jossy Lynn MD - 08/10/2023 7:36 PM EDT Emergency Department Encounter [facility] EMERGENCY DEPT Patient: Roro Valdivia : [...] 07/02/24 0221 -- Right arm Focused exam: Fmp-dfm-tziqjpvyj in no acute distress. Alert and oriented [...] (*) Macrocytes Slight (*) Polychromasia Rare (*) [place] Cells Rare (*) Neutrophils % 37 (*) [...] Culture. Procedure Abnormality Status --------- ------ Complete Urinalysis[[id number]] Normal Final result Please view results for [...] [facility] [employer] Jossy Lynn MD 08/11/23 0252 [employer] Phone: [phone] Telephone encounter Note* Telephone Encounter - Branden Maldonado - 07/16/2023 3:08 PM EDT Patient next appt 07/22/2023 Patient cancelled 07/15/23 appt and missed 07/01/23 and 07/08/23 appt . SterraClimbKtwlsp76-26-2796 Miscellaneous Notes* Telephone Encounter - Branden Maldonado [...] up the medication: Yes documented in this [facility]06-06-2024 Telephone encounter Note* Telephone Encounter - [...] prior to picking up the medication: [facility] History of Present illness Narrative* Stone Ramsey [...] 5PM-7AM: Page AI2 or AI3 (In house Teasel Gig Operator) * Stone Ramsey MD - 06/27/2023 12:35 [...] daily - Diet: General Associated attestation - Gion Sue Jr., DO - 06/28/2023 11:50 AM [...] 5PM-7AM: Page AI2 or AI3 (In house Teasel Gig Operator) * Stone Ramsey MD - 06/26/2023 11:53 [...] be monitored and followed by the diet neurophysiological technician. [place] * Maryana Sandoval MD [...] daily - Diet: General documented in this [facility]05-19-2024 Plan of care note* Care Plan [...] Free from fall injury Outcome: Progressing . [facility] HospitalVixpzm83-19-2221 Miscellaneous Notes* Care Plan - Giovanna Mena [...] Limits Permission given to speak with patient customer loyalty representative/caregiver as indicated: No Confirmation of Payer with patient/family: Payer Name: [employer] [place]: No Confirmation of Primary Care Physician: No [...] RN * Care Plan - Maria Isabel aPrks RN - 06/26/2023 10:51 AM EDT The [...] no increase in CIWA documented in this [facility]05-18-2024 Plan of care note* Care Plan [...] scheduled meds well without experiencing withdrawal symptoms. [facility] HospitalGbjeww93-58-1116 Hospital Discharge instructions* Discharge Instructions* Nevaeh Brooks MD - 06/26/2023 12:32 PM EDT [facility] [address] [place] [id number] Walk in hours: Thursday-Thursday [phone], [place] [id number] Please make appointment with Dr. Hilton regarding psychiatric medication refills, you will get refills of venlafaxine and zyprexa for one month at pharmacy of choice at discharge. Further refills through your psychiatric team. Please make appointment with PCP within 1-2 weeks - would recommend outpatient ultrasound of liver for elevated liver function tests. Please call [place] or [place] for information on IOP documented in this [facility]05-17-2024 Note* Care Coordination - Renetta Juarez RN - 06/26/2023 11:18 AM EDT Care Managment Initial Assessment Date: 06/26/2023 Patient Name: Roro Valdivia : 1985 Patient Information Source of Information: Patient Cognition/Language: WFL - Within Functional Limits Permission given to speak with patient customer loyalty representative/caregiver as indicated: No Confirmation of Payer [...] Anticipate home at discharge. Renetta Juarez RN [facility]05-17-2024 Note* Care Coordination - Renetta Juarez RN - 06/26/2023 11:18 AM EDT Care Managment Initial Assessment Date: 06/26/2023 Patient Name: Roro Valdivia : 1985 Patient Information Source of Information: Patient Cognition/Language: WFL - Within Functional Limits Permission given to speak with patient customer loyalty representative/caregiver as indicated: No Confirmation of Payer [...] Anticipate home at discharge. Renetta Juarez RN [facility] Vdpxbu03-80-1146 Plan of care note* Care Plan - [...] barriers include continue to follow ADM's recommendations. [facility] [id number] Consult note* JOSÉ ANTONIO Scruggs CNP - 06/26/2023 8:56 AM EDTAssociated Order(s): IP CONSULT TO PSYCHIATRY [facility] Behavioral Health Department of Psychiatry Nurse Practitioner Note *Please contact [employer] Psych[facility] Listed in [facility] On-Call Finder Thu-Thu: From 1700 - 0800 and on Thursday & Thursday* TODAY'S DATE: 06/26/23 ADMISSION DATE: 06/24/2023 IDENTIFYING INFORMATION Name: Roro Valdivia : 1985 Reason for Consult: feelings of depression, thoughts of not wanting to live. Denies plan/intent. pt reports these feelings led to polysubstance use relapse Consulting Practitioner: Fatuma Hess APRN-COATER HAND Hospital Day: 2 SUBJECTIVE: CHIEF COMPLAINT: CC: [...] 37 y.o., male who was hospitalized at [facility] for Alcohol use disorder on 06/24/2023. PMH [...] panic Past/Current mental health outpatient care includes: [facility] Previous psychiatric hospitalizations: yes, 2022 [...] mg, 5 mg, Oral, Nightly, Fatuma Hess, DIRECTOR OF AUTOMATION - COATER HAND ondansetron ODT (Zofran-ODT) disintegrating tablet 4 mg, [...] History of pancreatitis 01/07/2023 Hypertension Pancreatitis Seizures ([facility]) SVT (supraventricular tachycardia) Tourette syndrome Past Surgical History: Procedure Laterality Date APPENDECTOMY Family History Problem Relation Name Age of Onset No Known Problems Mother No Known Problems Father Social History: Single, lives in [place], no family support. Has GED, unemployed. No [...] 0 min Stress: Stress Concern Present (11/04/2022) [place] of Occupational Health - Occupational Stress Questionnaire Feeling of Stress : To some extent Social Connections: Socially Isolated (06/24/2023) Social Connection and Isolation Panel [NHANES] Frequency of Communication with Friends and Family: More than three times a week Frequency of Social Gatherings with Friends and Family: More than three times a week Attends Episcopal Services: Never Active Member of Clubs or [...] record on the day of the visit. [employer] Phone: [phone]) 612-791405-17-2024 Consult note* JOÉS ANTONIO Scruggs CNP - 06/26/2023 8:56 AM EDTAssociated Order(s): IP CONSULT TO PSYCHIATRY [facility] Department of Psychiatry Nurse Practitioner Note *Please contact [employer] Psych[facility] Listed in [facility] On-Call Finder Mon-Fri: From 1700 - 0800 [...] 37 y.o., male who was hospitalized at [facility] for Alcohol use disorder on 06/24/2023. PMH [...] panic Past/Current mental health outpatient care includes: [facility] Previous psychiatric hospitalizations: yes, 2022 [...] mg, 5 mg, Oral, Nightly, Fatuma Hess, DIRECTOR OF AUTOMATION - COATER HAND ondansetron ODT (Zofran-ODT) disintegrating tablet 4 mg, [...] 37.5 mg, Oral, Daily with breakfast, Fatuma eHss APRN - ISAEL Medications Prior to Admission: [...] History of pancreatitis 01/07/2023 Hypertension Pancreatitis Seizures ([facility]) SVT (supraventricular tachycardia) Tourette syndrome Past Surgical History: Procedure Laterality Date APPENDECTOMY Family History Problem Relation Name Age of Onset No Known Problems Mother No Known Problems Father Social History: Single, lives in [place], no family support. Has GED, unemployed. No [...] 0 min Stress: Stress Concern Present (11/04/2022) [place] of Occupational Health - Occupational Stress Questionnaire Feeling of Stress : To some extent Social Connections: Socially Isolated (06/24/2023) Social Connection and Isolation Panel [NHANES] Frequency of Communication with Friends and Family: More than three times a week Frequency of Social Gatherings with Friends and Family: More than three times a week Attends Episcopal Services: Never Active Member of Clubs or [...] EDTAssociated Order(s): IP CONSULT TO ADDICTION [facility]IC[facility] Consult service H&P Admit Date: 06/24/2023 Primary [...] 0 min Stress: Stress Concern Present (11/04/2022) [place] of Occupational Health - Occupational Stress Questionnaire Feeling of Stress : To some extent Social Connections: Socially Isolated (06/24/2023) Social Connection and Isolation Panel [NHANES] Frequency of Communication with Friends and Family: More than three times a week Frequency of Social Gatherings with Friends and Family: More than three times a week Attends Episcopal Services: Never Active Member of Clubs or [...] ODT OR ondansetron, polyethylene glycol (PEG) 3350 @[id number]@ Plan 1. Alcohol use disorder severe with [...] 06/25/2023 at 1:32 PM documented in this [facility]05-16-2024 Plan of care note* Care Plan [...] falls this shift, no increase in CIWA [facility] HospitalYjxkxm99-27-2870 Emergency department Note* Ashlyn Aquino RN - 06/25/2023 3:10 PM EDT Report to Apolonia Aquino RN 06/25/23 1510 [facility] [facility] [id number] Emergency department Note* Ashlyn Aquino RN - [...] RN - 06/24/2023 9:11 PM EDT This [facility] RN met with pt, pt presented to [...] other out patient addiction care services at [facility]. Pending lab results, plan is to admit pt to detox unit. Baljinder James RN 06/24/232117 * Jossy Lynn MD - 06/24/2023 6:20 PM EDT Emergency Department Encounter [facility] EMERGENCY DEPT Patient: Roro Valdivia : [...] Location FiO2 (%) -- -- Focused exam: Bov-xuj-mgewvqpty in no acute distress. Alert and oriented [...] Procedure Abnormality Status --------- ------ Comprehensive metabolic p...[[id number]] Please view results for these tests on [...] Lynn MD 06/25/23 0117 documented in this [facility]05-16-2024 Consult note* Stone Ramsey MD - 06/25/2023 1:32 PM EDTAssociated Order(s): IP CONSULT TO ADDICTION MEDICINE [facility] Consult service H&P Admit Date: 06/24/2023 Primary [...] History of pancreatitis 01/07/2023 Hypertension Pancreatitis Seizures ([facility]) SVT (supraventricular tachycardia) Tourette syndrome Past Surgical [...] 0 min Stress: Stress Concern Present (11/04/2022) [place] [employer] - Occupational Stress Questionnaire Feeling of Stress : To some extent Social Connections: Socially Isolated (06/24/2023) Social Connection and Isolation Panel [NHANES] Frequency of Communication with Friends and Family: More than three times a week Frequency of Social Gatherings with Friends and Family: More than three times a week Attends Episcopal Services: Never Active Member of Clubs or [...] ODT OR ondansetron, polyethylene glycol (PEG) 3350 @[id number]@ Plan 1. Alcohol use disorder severe with [...] MD Addiction Medicine 06/25/2023 at 1:32 PM [facility] [id number] NoteNOTE:These results are for medical treatment only. Analysis performed using non-forensic procedures. This test has not been cleared by the US Food and Drug Administration (FDA). The FDA has determinedthat such clearance or approval is not necessary. The performance chararcteristics have been determined by the clinical laboratories of [facility] HospitalNbgymb24-93-2639 NoteNOTE:These results are for medical treatment only. Analysis performed using non-forensic procedures. This test has not been cleared by the US Food and Drug Administration (FDA). The FDA has determinedthat such clearance or approval is not necessary. The performance chararcteristics have been determined by the clinical laboratories of [facility] HospitalTmtbwi75-61-9691 Emergency department Note* Beatris Parada RN - 06/25/2023 3:21 AM EDT Report to JOSE GUADALUPE Goldberg RN 06/25/23 0321 [facility] HospitalYkeyeo28-87-4213 Emergency department Note* Beatris Parada RN - 06/25/2023 12:51 AM EDT Pt out of bed sitting in chair at bedside stating that he could not sleep due to his anxiety so he is sitting in the chair for a little bit. Will continue to monitor. Beatris Parada RN 06/25/23 0052 [facility] HospitalUbqxji19-06-2171 History and physical note* Clementine Phelan Alireza, [...] and SVT with palpitations that presented to [facility] on 06/24/2023 from home with alcohol [...] History of pancreatitis 01/07/2023 Hypertension Pancreatitis Seizures ([facility]) SVT (supraventricular tachycardia) Tourette syndrome Past Surgical [...] hours as needed for wheezing. 11/12/22 11/12/23 [employer] [facility] Hilton DO buprenorphine-naloxone (Suboxone) 8-[address] 1 tablet under the tongue daily for 28 days. 04/29/23 05/27/23 [facility] Hilton DO cloNIDine (Catapres) 0.1 MG tablet Take 1 tablet (0.1 mg) by mouth 2 times daily. 11/12/22 11/12/23 [facility] DO Lida hydrOXYzine pamoate (Vistaril) 50 MG capsule Take 1 capsule (50 mg) by mouth every 6 hours as needed for allergies or anxiety. 12/10/22 05/17/23 [facility] Lida DO metoprolol succinate XL (Toprol-XL) 25 MG 24 hr tablet Take 2 tablets (50 mg) by mouth daily. Do not crush or chew. 03/18/23 05/17/23 [facility] DO Lida nicotine (Nicoderm CQ) 21 MG/24HR patch Place 1 patch on the skin Every 24 hours. 11/15/22 12/15/22 Carlitos Orta MD OLANZapine (ZyPREXA) 5 MG tablet Take 1 tablet (5 mg) by mouth Nightly. Patient taking differently: Take 7.5 mg by mouth Nightly. 11/12/22 06/10/23 [employer] [facility] Hilton DO omeprazole (PriLOSEC) [address] capsule Take 1 capsule (20 mg) by mouth every morning (before breakfast). Do not crush or chew. 12/10/22 [employer] [facility] Hilton DO ondansetron ODT (Zofran-ODT) 4 MG disintegrating tablet Take 1 tablet (4 mg) by mouth every 8 hoursas needed for nausea or vomiting. 11/12/22 [employer] [facility] Hilton DO traZODone (Desyrel) 50 MG [...] Phenobarb taper. - ADM has maite consulted. [facility] [id number] History and physical note* Clementine Lay DO [...] and SVT with palpitations that presented to [facility] on 06/24/2023 from home with alcohol [...] ADM has maite consulted. documented in this [facility]05-15-2024 Emergency department Note* Beatris Parada RN [...] will continue tomonitor. Beatris Parada RN 06/24/232205 [facility] HospitalJhqvpr68-84-6481 Emergency department Note* Baljinder James RN - 06/24/2023 9:40 PM EDT Report given to Tyree SHI, pt moved to ED room 27. Baljinder James RN 06/24/232140 [facility] HospitalJskfia37-91-1996 NoteNOTE: This result is for medical treatment only. Analysis performed using non-forensic procedures. [facility] HospitalWexhuf75-24-2809 Emergency department Note* Baljinder James RN - 06/24/2023 9:11 PM EDT This [facility] RN met with pt, pt presented to [...] collected and sent. Pt accepted information on [facility]. Pt refused i nformation on other out patient addiction care services at [facility]. Pending lab results, plan is to admit pt to detox unit. Baljinder James RN 06/24/232117 [facility] HospitalPwkdcc14-07-2069 Physician Emergency department Note* Jossy Lynn MD [...] Location FiO2 (%) -- -- Focused exam: Lio-ljq-ymdkimyuk in no acute distress. Alert and oriented [...] Procedure Abnormality Status --------- ------ Comprehensive metabolic p...[[id number]] Please view results for these tests on [...] words are mis-transcribed.) Jossy Lynn MD [facility] Jossy Lynn MD 06/25/23 0117 [facility] [id number] Telephone encounter Note* Telephone Encounter - Josy Hernandez - 06/15/2023 3:00 PM EDT Spoke w pnt. Appt made and refill request sent [facility] [id number] Miscellaneous Notes* Telephone Encounter - Josy Hernandez [...] Medication Name: Buprenorphine-Naloxone (Suboxone) documented in this encounterSSt. Anthony's HospitalZfhuti05-24-4937 Telephone encounter Note* Telephone Encounter - Joanne [...] if any: Yes Medication Name: Buprenorphine-Naloxone (Suboxone) [facility] HospitalMpdtzj10-53-3591 History of Present illness Narrative* Thiago Hilton [...] any illicit drug use to either the caser up or myself/my staff. 5. Keep medicine out [...] MD 05/07/23 4:44 PM documented in this [facility]03-20-2024 History of Present illness Narrative* Thiago [...] any illicit drug use to either the caser up or myself/my staff. 5. Keep medicine out [...] stated that they are currently in the [facility]. If the patient is a minor, permission has been obtained by the parent or guardian for the patient to receive medical care at this visit. documented in this [facility]03-20-2024 History of Present illness Narrative* Thiago [...] any illicit drug use to either the caser up or myself/my staff. 5. Keep medicine out [...] that they are currently in the [facility]. If the patient is a minor, [...] MD 05/11/23 3:57 PM documented in this [facility]02-07-2024 History of Present illness Narrative* Thiago [...] any illicit drug use to either the caser up or myself/my staff. 5. Keep medicine out [...] MD 03/19/23 3:30 PM documented in this [place] [address]-07-2024 History of Present illness Narrative* Thiago Paige [...] any illicit drug use to either the caser up or myself/my staff. 5. Keep medicine out [...] MD 03/19/23 3:30 PM documented in this [facility]01-22-2024 Telephone encounter Note* Telephone Encounter - Fabiana Murray - 03/02/2023 7:16 AM EST Pharmacy Requested the following medication [facility] [id number] Miscellaneous Notes* Telephone Encounter - Fabiana Murray - 03/02/2023 7:16 AM EST Pharmacy Requested the following medication documented in this [facility]11-30-2023 History of Present illness Narrative* Erin [...] still positive, will treat documented in this [facility]11-29-2023 History of Present illness Narrative* Erin Arce MD - 01/07/2023 8:00 AM EST Images from the original note were not included. [facility] Infectious Diseases Attending Outpatient Consult Note Reason for Consult: Positive Quantiferon test Requesting Physician: Dr JOSE J Milian Chief Complaint Patient presents with New Patient New pt here for positive quantiferon HISTORY OF PRESENT ILLNESS The patient is a 37 y.o. man with presents because of screening Quantiferon test for TB while at a sober house. He is currently in treatment, at [facility], with Suboxone for polysubstance abuse including opiates,cocaine, [...] 0 min Stress: Stress Concern Present (11/04/2022) [place] [employer] - Occupational Stress Questionnaire Feeling of Stress : To some extent Social Connections: Unknown (11/04/2022) Social Connection and Isolation Panel [NHANES] Frequency of Communication with Friends and Family: Patient refused Frequency of Social Gatherings with Friends and Family: Patient refused Attends Episcopal Services: Patient refused Active Member of Clubs [...] Arce MD, MD, FACP documented in this [facility]11-29-2023 History of Present illness Narrative* Erin Arce MD - 01/07/2023 8:00 AM EST Images from the original note were not included. [facility] Infectious Diseases Attending Outpatient Consult Note Reason [...] >0.9) He is currently in treatment, at [facility], with Suboxone for polysubstance abuse including opiates,cocaine, [...] 0 min Stress: Stress Concern Present (11/04/2022) [place] [employer]ational [employer] - Occupational Stress Questionnaire Feeling of Stress : To some extent Social Connections: Unknown (11/04/2022) Social Connection and Isolation Panel [NHANES] Frequency of Communication with Friends and Family: Patient refused Frequency of Social Gatherings with Friends and Family: Patient refused Attends Episcopal Services: Patient refused Active Member of Clubs [...] Arce MD, MD, FACP documented in this [facility]11-07-2023 Hospital Discharge instructions* Discharge Instructions* Tania Payne DO - 12/16/2022 11:44 PM EST We have referred you to see infectious disease outpatient. Follow-up with them as soon as possible to go over future treatment options for your positive TB test. As you can follow-up with your primary care doctor as needed. documented in this [facility]11-07-2023 Emergency department Note* Jovita Thompson RN - 12/16/2022 10:52 PM EST Pt to CT. Jovita Thompson RN 12/16/222251 [facility] HospitalCrvpin93-39-6340 Emergency department Note* Jovita Thompson RN - 12/16/2022 10:52 PM EST Pt to CT. Jovita Thompson RN 12/16/222251 * Jovita Thompson RN - 12/16/2022 6:04 PM EST Report to JOSE GUADALUPE Garland. Jovita Thompson RN 12/16/22 1805 * Duong Milian MD - 12/16/2022 2:19 PM EST Emergency Department Encounter [facility] EMERGENCY DEPT Patient: Roro Valdivia : [...] dictating provider for clarification.) Duong Milian MD [facility] Spoke with ID since he is having night sweats they are recommending a CT scan of the chest if normal he can go home and if its positive would need admission for work-up of active tuberculosis. Patient will be placed in a negative pressure room. Duong Milian MD 12/16/22 1711 * Smita Garsia RN - 12/16/2022 2:19 PM EST Bed: 05 Expected date: Expected time: Means of arrival: Comments: LIANET Garsia RN 12/16/22 1639 documented in this [facility]11-07-2023 Emergency department Note* Jovita Thompson RN - 12/16/2022 6:04 PM EST Report to JOSE GUADALUPE Garland. Jovita Thompson RN 12/16/22 1805 [place] [id number] Emergency department Note* Smita Garsia RN - 12/16/2022 2:19 PM EST Bed: 05 Expected date: Expected time: Means of arrival: Comments: LIANET Garsia RN 12/16/22 1639 [place] [id number] Physician Emergency department Note* Duong Milian MD - 12/16/2022 2:19 PM EST Emergency Department Encounter [facility] EMERGENCY DEPT Patient: Roro Valdivia : [...] dictating provider for clarification.) Duong Milian MD [facility] Spoke with ID since he is having night sweats they are recommending a CT scan of the chest if normal he can go home and if its positive would need admission for work-up of active tuberculosis. Patient will be placed in a negative pressure room. Duong Milian MD 12/16/22 1711 [employer] Phone: [phone] 237-369711-01-2023 History of Present illness Narrative* Thiago Hilton, [...] Program: Endorses prior (court-ordered) CD IOP through [facility].. [facility].. 12-Step Meeting Attendance: has gone in the past. Psychiatric History Diagnoses: Panic disorder without agoraphobia; Tourette disorder. Medications: see med list. Psychiatrist: [facility]. Counselor: [facility] . Past Medical History Past Medical History: [...] 0 min Stress: Stress Concern Present (11/04/2022) [place] [employer] Health - Occupational Stress Questionnaire Feeling of Stress : To some extent Social Connections: Unknown (11/04/2022) Social Connection and Isolation Panel [NHANES] Frequency of Communication with Friends and Family: Patient refused Frequency of Social Gatherings with Friends and Family: Patient refused Attends Episcopal Services: Patient refused Active Member of Clubs [...] esophagitis 2. Anxiety 3. Alcohol-induced insomnia (CMS/HCC) ([facility]) 4. Severe opioid use disorder ([facility]) PLAN Medications Ordered New Medications Ordered This [...] care exception (GE Modifier). documented in this [facility]10-12-2023 NoteHNO ID: [id number] Author: Constance Padilla, DO Service: ? Author Type: Resident Type: Progress Notes Filed: 12/08/2022 3:26 PM Note Text: [facility] INITIAL PSYCHIATRIC EVALUATION PATIENT: Roro Valdivia MRD: [id number] DATE: November 20, 2022 IDENTIFYING INFORMATION: Roro is a 37 year old male with a history of polysubstance use, opioid use disorder alcohol use disorder, anxiety, Tourette's syndrome, benzodiazepine abuse, fentanyl, crack cocaine use disorder. CHIEF COMPLAINT: 2 problems- panic attacks HPI: On interview today, patient reports they present to [facility] for anxiety and panic attacks [...] 8-2 Suboxone by his addiction physician at [facility]. He reports anxiety and depression started at [...] past, does not recall the name Agency: [facility] account services manager: Patient reports he has a caser up through his rehab Therapist: Denies follow-up with therapist Self harm: Denies Suicide attempts: denies Medication Trials: catapres, risperidone SOCIAL HISTORY: Born and raised: [place] Childhood: Never met dad- grandparents had custody- mom was partying and thus deter (more content not included)...[facility]10-07-2023 Telephone encounter Note* Telephone Encounter - Yuliya [...] R: Allergies reviewed and pharmacy verified - [place] on [facility]. Paged provider cotton ginner helper via secure chat - Dr. Soares. I sent a rx for a nicotine patch to [place] on [address] [facility]. Pt informed.Instructed to call back with any further questions or concerns. Reason for Disposition [1] Caller has URGENT medicine question about med that PCP or specialist prescribed AND [2] triagerunable to answer question Protocols used: Medication Question [id number]-RSJOI-HO [facility] HospitalCjdljw79-12-6222 Miscellaneous Notes* Telephone Encounter - Yuliya Ford [...] R: Allergies reviewed and pharmacy verified - [place] on [facility]. Paged provider cotton ginner helper via secure chat - Dr. Soares. I sent a rx for a nicotine patch to [place] on [address] Pt informed.Instructed to call back with any further questions or concerns. Reason for Disposition [1] Caller has URGENT medicine question about med that PCP or specialist prescribed AND [2] triagerunable to answer question Protocols used: Medication Question [id number] documented in this encounterSSt. Anthony's [id number] Telephone encounter Note* Telephone Encounter - Brianda Sabillon - 11/14/2022 4:43 PM EDT Patient called to check the status of the Rx for patches -- no pharmacy can get the inhalers -- he goes into rehab on Friday 11/17 and needs to get the patches prior to going in. Please advise. Thank you. [facility]yph48[facility]14-7708 Miscellaneous Notes* Telephone Encounter - Brianda Sabillon [...] of caller: Roro Valdivia Contact phone number: [phone] Relationship to Patient: patient Provider: Dr. Hilton [...] return their call: Yes documented in this [facility]10-06-2023 Telephone encounter Note* Telephone Encounter - Joanne Antonio - 11/14/2022 12:56 PM EDT Name of caller: Roro Migdaliakacey Contact phone number: [phone] Relationship to Patient: patient Provider: Dr. Hilton [...] business hours to return their call: Yes [facility] HospitalZanllm73-19-4142 History of Present illness Narrative* Thiago Hilton, [...] History Inpatient Rehab: Prior residential treatment at [facility] in adolescence. Chem Dep IOP: Endorses prior (court-ordered) CD IOP through [facility]. Detoxifications: several most recent 06/2022 12 Step [...] Psychiatric History Current Psychiatrist: Previously aligned with [facility], and recommended by Psychiatry consult to follow-up there for mental health needs s/p detox and discharge Current Medications: Per Psychiatry consult recommendations, patient started on olanzapine 5 mg q HS Diagnoses: Panic disorder without agoraphobia; Tourette disorder Previous Medication Trials: Started on sertraline during last admission but self-discontinued d/t perceived lack of benefit Psychiatric Hospitalizations: Admitted to [facility] 05/23/2022 for suicide attempt via overdose Previous [...] 0 min Stress: Stress Concern Present (11/04/2022) [place] [employer] Occupational Health - Occupational Stress Questionnaire Feeling of Stress : To some extent Social Connections: Unknown (11/04/2022) Social Connection and Isolation Panel [NHANES] Frequency of Communication with Friends and Family: Patient refused Frequency of Social Gatherings with Friends and Family: Patient refused Attends Episcopal Services: Patient refused Active Member of Clubs [...] use disorder (HCC) 2. Alcohol-induced insomnia (CMS/HCC) ([facility]) 3. Mild intermittent asthma without complication 4. Anxiety 5. Tourette syndrome 6. Severe alcohol use disorder ([facility]) 7. Encounter for smoking cessation counseling 8. [...] care exception (GE Modifier). documented in this [facility]2023 Nurse Note* Fay Lara RN - 11/08/2022 2:25 PM EDT The patient was walked down to meet his step mom by our [facility]. His gait is steady and he is without complaint. He was handed his meds to beds as he left the unit. He changed into the clothes he wore into the hospital. [facility] [id number] Nurse Note* Fay Lara RN - 11/08/2022 2:25 PM EDT The patient was walked down to meet his step mom by [facility]. His gait is steady and he [...] to monitor for safety. documented in this [facility]2023 Nurse Note* Fay Lara RN - [...] others. He denies any form of hallucinations. [facility] HospitalNxskcy39-37-4669 Hospital course Narrative* Louis Alexandre MD - [...] 0.191. This patient has been detoxified at [facility] in June 2022 but signed out AGAINST MEDICAL ADVICE. He is also been treated as an adolescent and that when [place] also was involved with the see the [facility] program through [place] [address] ordered. He denied [...] 0 min Stress: Stress Concern Present (11/04/2022) [place] of [employer]ational Health - Occupational Stress Questionnaire Feeling of Stress : To some extent Social Connections: Unknown (11/04/2022) Social Connection and Isolation Panel [NHANES] Frequency of Communication with Friends and Family: Patient refused Frequency of Social Gatherings with Friends and Family: Patient refused Attends Episcopal Services: Patient refused Active Member of Clubs [...] Date Alcohol withdrawal with inpatient treatment, uncomplicated ([facility]) 03/15/2022 GERD (gastroesophageal reflux disease) Hypertension Pancreatitis Seizures ([facility]) SVT (supraventricular tachycardia) ([facility]) ([facility]) Tourette syndrome Past Surgical History: Procedure Laterality [...] portions of the note are written utilizing [employer] (formerly known as [employer]) software. While every effort is made todictate clearly and proofread, errors in the dictation may still occur. If there are any questions regarding the dictation please do not hesitate to contact the author. documented in this [facility]2023 Nurse Note* Fay Lara RN - 11/08/2022 11:14 AM EDT Mr. Valdivia has been up in the day area most of the morning with the exception of eating his breakfast. He has been drawing, building the puzzle and socializing with his peers. He has been making needs known to staff. [facility] [id number] Plan of care note* Care Plan - [...] Recommendations to address these barriers include nothing. [facility] [id number] Miscellaneous Notes* Care Plan - Baljinder James [...] 2:53 PM EDT Patient signed ARI for [facility] residential treatment program. LUNCH COUNTER MANAGER faxed over referral information to agency. LUNCH COUNTER MANAGER continue follow-up as necessary. t 2:53 PM * Care Coordination - VANITA Toribio - 11/04/2022 8:17 AM EDT Behavioral Health Psycho-Social Assessment (Social Work) Date: 11/04/2022 Patient Name: Roro Valdivia : 1985 Identifying Information: Patient is a 37-year-old male who [facility] [...] by overdose (05/23/22). Patient was sent to [facility] then ultimately generations in [place] for stabilization. Patient has additional admissions to [facility]. Patient reports past history of suicide attempt [...] Patient has history of residential treatment at [facility]. Patient patient is unable to identify any [...] alone in [facility]. Patient reports he experiences housing instability and does not have any stable place to live. Patient reports that he has no contact with his mother and he has never met his father. Patient reports he does not have any siblings. Patient reports he was born and raised in [place] [facility] [place] by primarily his mother's adoptive parents. Patient [...] his GED while he was in the [place] house. Patient reports he is not currently working. Patient denies SI/SSD. Cultural/Spirituality/Leisure: Patient denies any cultural needs or concerns at the current time. Patient denies any buddhism preference at the current time. Patient reports [...] by OD (05/23/22). Patient was sent to [facility] then ultimately generations in [place] for stabilization. additional admissions to [facility]. Patient reports Hx of SI where he [...] by overdose (05/23/22). Patient was sent to [facility] then ultimately generations in [place] for stabilization. Patient has additional admissions to [facility]. Patient reports past history of suicide attempt [...] plan is to attend residential treatment at [facility] to help with his uncle. Patient and LUNCH COUNTER MANAGER continue work together to establish a plan based on patient's aftercare needs. SLIDING JOINT MAKER will assist with reaching out to residential placement. Patient is encouraged to engage in all activities that are offered and lies on the unit. Patient did not identify any additional needs or concerns at current time. Patient encouraged to seek out LUNCH COUNTER MANAGER unit staff should he identify any additional [...] EDT See care plan documented in this [facility]09-29-2023 History of Present illness Narrative* Baljinder [...] addiction treatment plan with patient: [facility]ires [facility] LUNCH COUNTER MANAGER to work with placement Plan for acceptance [...] Medical stabilization. Labs/tests/tasks to review: suboxone trial. Provider Relations Consultant recommendations: none. Associated attestation - Carlitos Orta [...] addiction treatment plan with patient: Desires [facility] LUNCH COUNTER MANAGER to work with placement Plan for acceptance [...] Medical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 the applicable information sheets. SALICYLATE [...] Culture. Procedure Abnormality Status --------- ------ Complete Urinalysis[[id number]] Abnormal Final result Please view results for [...] Ortiz DO 07/11/22 0545 documented in this [facility]06-02-2023 NoteNOTE: This result is for medical treatment only. Analysis performed using non-forensic procedures. [facility] HospitalGtobha10-84-0272 Physician Emergency department Note* Shaan Ortiz DO [...] In compliance with this authorization, please visit www.fda.gov/media/714369/download or www.fda.gov/media/740463/download to access the applicable information sheets. SALICYLATE [...] Culture. Procedure Abnormality Status --------- ------ Complete Urinalysis[[id number]] Abnormal Final result Please view results for [...] 07/11/22 0228 Shaan Ortiz DO 07/11/22 0545 [facility] HospitalWmxupa69-35-4354 Emergency department Note* JOSÉ ANTONIO Mercedes CNP [...] reflux disease) Hypertension Pancreatitis SVT (supraventricular tachycardia) ([facility]) ([facility]) Tourette syndrome SURGICAL HISTORY Past Surgical History: [...] PATIENT REFERRED TO: Neetu A Tino 1945 [facility] [facility] [phone] Schedule an appointment as soon as possible [...] Mercedes CNP 06/12/22 1601 documented in this [facility]05-04-2023 Physician Emergency department Note* JOSÉ ANTONIO [...] reflux disease) Hypertension Pancreatitis SVT (supraventricular tachycardia) ([facility]) ([facility]) Tourette syndrome SURGICAL HISTORY Past Surgical History: [...] 03:59:10 PM PATIENT REFERRED TO: Neetu Jiménez [address] [place] [address]., [address] [facility] [address] Schedule an appointment as soon as [...] Provider JOSÉ ANTONIO Mercedes CNP 06/12/22 1601 [facility] HospitalGhffka14-13-2705 Emergency department Note* Ana Osorio RN - 05/25/2022 10:53 PM EDT DM transported patient without receiving report. Paperwork and 1 bag of belongings sent with QUANG Abrams. This RN was told that EMS stated they would remove IV. Ana Osorio RN 05/25/222254 Ana Osorio RN 05/25/222312 [facility] HospitalPkcntb35-78-1317 Emergency department Note* Ana Osorio RN - [...] RN before leaving. [facility] Jose [...] taken. Patient waiting to be transported to [facility]. Ana Osorio RN 05/25/222024 * Zarina Eduardo - 05/25/2022 6:29 PM EDT Meal tray at bedside. Zarina Eduardo 05/25/22 182 * Savanna Carvalho RN - 05/25/2022 6:18 PM EDT Pt resting in bed . Pt declines need . Report called to [facility] Savanna Carvalho RN 05/25/221818 * Zarina Eduardo [...] a gown . Pt was sent from [facility] for elevated CK level. Security here to check pt belongings. Monitor on to watch patient for a safety sit Savanna Carvalho RN 05/25/22 1606 * Mary Hamlin MD - 05/25/2022 3:52 PM EDT [facility] EMERGENCY DEPT EMERGENCY DEPARTMENT ENCOUNTER Pt [...] disease) Hypertension Pancreatitis SVT (supraventricular tachycardia) (CMS/HCC) ([facility]) Tourette syndrome SURGICAL HISTORY Past Surgical History: [...] is medically cleared for return transfer to [facility]. CK is 105 and creatinine is 0.61. [BJ] ED Course User Index [BJ] Mary Hamlin MD Diagnoses as of 05/25/221720 Anxiety CONSULTS: None PROCEDURES: Unless otherwise noted below, none Procedures FINAL IMPRESSION 1. Anxiety DISPOSITION/PLAN DISPOSITION Transfer To Another Facility 05/25/2022 05:19:32 PM PATIENT REFERRED TO: Neetu Jiménez [facility], [address] [facility] [address] DISCHARGE MEDICATIONS: New Prescriptions No medications on file @[facility](5125,[id number]:LAST:1)@ (Please note: Portions of this note were [...] Kaur RN 05/25/22 1553 documented in this [facility]04-16-2023 Emergency department Note* Jose Alberto Mena - 05/25/2022 10:15 PM EDT EMS at bedside for transport. EMS advised to check in with assigned RN before leaving. [facility] bag Jose Alberto Mena 05/25/222216 [address]Lkpuru78-59-1560 Emergency department Note* Ana Osorio RN - 05/25/2022 9:35 PM EDT Patient is resting in bed with eyes closed. Respirations even and unlabored. No distress noted. Ana Osorio RN 05/25/222134 [address]Owwnja21-53-1699 Emergency department Note* Ana Osorio RN - 05/25/2022 8:25 PM EDT This RN introduced herself to the patient. Patient is resting in bed. Respirations even and unlabored. No distress noted. Patient given cranberry juice. Vitals taken. Patient waiting to be transported to [facility]. Ana Osorio RN 05/25/222024 [address]Tpgyil16-62-4580 Emergency department Note* Zarina Eduardo - 05/25/2022 6:29 PM EDT Meal tray at bedside. Zarina Eduardo 05/25/22 182 [address]Lascgx12-48-3061 Emergency department Note* Savanna Carvalho RN - 05/25/2022 6:18 PM EDT Pt resting in bed . Pt declines need . Report called to COLT Carvalho RN 05/25/22 181 [address]Vzhecv22-87-2441 Emergency department Note* Zarina Eduardo - 05/25/2022 6:01 PM EDT Meal tray ordered for pt. Zarina Roeo 05/25/22 1801 [address]Vaxypu04-92-0464 Emergency department Note* Zarina Jayce - 05/25/2022 5:42 PM EDT This note placed into wrong pt chart. Note erased and replaced with this notice of mistake. Zarina Jayce 05/25/22 1743 Zarina Jayce 05/25/22 1751 [address]Xwxkom88-76-0087 Emergency department Note* Zarina Barbosaivo - 05/25/2022 5:35 PM EDT This medic placed a note in wrong pts chart. Original note replaced with this note. Zarina Jayce 05/25/22 1750 Zarina Jayce 05/25/22 1751 [address]Etjhqk79-28-6982 Emergency department Note* Zarina Jayce - 05/25/2022 4:33 PM EDT JOSE GUADALUPE Rosenberg at bedside to medicate pt. Zarina Jayce 05/25/22 1633 [address]Qsftmd76-88-5810 Emergency department Note* Zarina Jayce - 05/25/2022 4:[address] Hamlin at bedside. Zarina Jayce 05/25/22 1627 [address]Xspapi17-94-8407 Emergency department Note* Zarina Jayce - 05/25/2022 4:14 PM EDT JOSE GUADALUPE Corrales at bedside to obtain vitals. Zarina Eduardo 05/25/22 1615 [facility] HospitalFccncp89-71-2131 Emergency department Note* Zarina Eduardo - 05/25/2022 4:08 PM EDT Pt changed into 2 gowns by JOSE GUADALUPE Corrales. Pt wanded by protective services, belongings secured in 1 bag.Pt resting comfortably in bed at this time. Wanding and belongings check complete. Zarina Eduardo 05/25/22 1609 [facility] HospitalOxbqkd38-04-0750 Emergency department Note* Savanna Carvalho RN - 05/25/2022 4:07 PM EDT Pt changed to into a gown . Pt was sent from [facility] for elevated CK level. Security here to check pt belongings. Monitor on to watch patient for a safety sit Savanna Carvalho RN 05/25/22 1609 [facility] HospitalLzlhtg17-95-6353 Emergency department Note* Nikolai Kaur RN - 05/25/2022 3:52 PM EDT Bed: 35 Expected date: Expected time: Means of arrival: Comments: Nikolai Kaur RN 05/25/22 1553 [facility] HospitalLpmcnx74-69-7559 Physician Emergency department Note* Mary Hamlin MD - 05/25/2022 3:52 PM EDT [facility] EMERGENCY DEPT EMERGENCY DEPARTMENT ENCOUNTER Pt [...] disease) Hypertension Pancreatitis SVT (supraventricular tachycardia) (CMS/HCC) ([facility]) Tourette syndrome SURGICAL HISTORY Past Surgical History: [...] is medically cleared for return transfer to [facility]. CK is 105 and creatinine is 0.61. [BJ] ED Course User Index [BJ] Mary Hamlin MD Diagnoses as of 05/25/221720 Anxiety CONSULTS: None PROCEDURES: Unless otherwise noted below, none Procedures FINAL IMPRESSION 1. Anxiety DISPOSITION/PLAN DISPOSITION Transfer To Another Facility 05/25/2022 05:19:32 PM PATIENT REFERRED TO: Neetu Jiménez [address] [place] [address], [address] [facility] [phone] DISCHARGE MEDICATIONS: New Prescriptions No medications on file @[facility]([id number]:LAST:1)@ (Please note: Portions of this note were completed with a voice recognition program. Efforts were made to edit the dictations but occasionally words and phrases are mis-transcribed.) Form v2016.J.5-cn Mary Hamlin MD (electronically signed) Emergency Medicine Provider Mary Hamlin MD 05/25/221720 [employer] Phone: [phone]) 299-992204-15-2023 Emergency department Note* Ana Rich RN - 05/24/2022 9:30 AM EDT [place] arranged to [facility]. Physician's ETA 2 hours Ana Rich RN 05/24/22929 [facility]MiiixGaekna10-40-9021 Emergency department Note* Ana Rich RN - 05/24/2022 9:30 AM EDT [place] arranged to [facility]. Physician's ETA 2 hours Ana Rich RN 05/24/22929 * Ana Rich RN - 05/24/2022 8:59 AM EDT Report called to Emily at [facility] Ana Rich RN 05/24/22 0859 * Kenyetta [...] at this time. Juana Trotter RN 05/23/22 1595 * Mary Hamlin MD - 05/23/2022 8:53 PM EDT [facility] ED EMERGENCY DEPARTMENT ENCOUNTER Pt Name: Roro [...] reflux disease) Hypertension Pancreatitis SVT (supraventricular tachycardia) ([facility]/HCC) ([facility]) Tourette syndrome SURGICAL HISTORY Past Surgical History: [...] MEDICATIONS: New Prescriptions No medications on file @[facility]([id number]:LAST:1)@ (Please note: Portions of this note were [...] suicidal ideation he will be admitted to [facility]. He is worried he is going into [...] time: Means of arrival: Comments: offload Joe Godoy 05/23/222110 * Mara Ramos RN - 05/23/2022 8:53 PM EDT Bed: 13 Expected date: Expected time: Means of arrival: Comments: Room 2 Mara Ramos RN 05/23/222131 documented in this [facility]04-15-2023 Emergency department Note* Ana Rich RN - 05/24/2022 8:59 AM EDT Report called to Emily at [facility] Ana Rich RN 05/24/22 0859 [address]Rzjulg09-16-3471 Emergency department Note* Kenyetta Perkins RN - 05/24/2022 8:00 AM EDT Pt. Resting comfortably in room, asleep; bed lowest position; RR 16 Kenyetta Perkins RN 05/24/22 0802 [address]Xhthwj38-00-1661 Emergency department Note* Mara Ramos RN - 05/24/2022 2:05 AM EDT Pt ok'd to come off 1:1 sitter by physician. Mara Ramos RN 05/24/22 0206 [facility] HospitalDbxtvb74-19-0191 Emergency department Note* Mara Ramos RN - 05/24/2022 2:01 AM EDT Pt A&Ox4. Pt denies SI and HI. Pt states that he has been SI in the past but is not feeling SI.Pt states that he may have been confused when he said he was earlier. Mara Ramos RN 05/24/22 0202 [facility] HospitalPkbfcg62-70-1513 NoteNOTE: This result is for medical treatment only. Analysis performed using non-forensic procedures. [facility] HospitalZkrymw05-72-1535 Emergency department Note* Juana Trotter RN - 05/23/2022 11:30 PM EDT Pt placed on monitoring devices at this time. Juana Trotter RN 05/23/22 7731 [facility] HospitalMhxocy24-66-1946 Miscellaneous Notes* Care Coordination - Roma Madsen [...] to participate in ASAM. documented in this [facility]04-14-2023 Note* Care Coordination - Roma Madsen [...] or prc;not willing to participate in ASAM. [place] [address]Oziowo50-42-6514 Note* Care Coordination - Roma Madsen RN [...] or prc;not willing to participate in ASAM. [place] [address]Expewt43-72-3425 Emergency department Note* Joe Godoy - 05/23/2022 8:53 PM EDT Bed: 02 Expected date: 05/23/22 Expected time: Means of arrival: Comments: offload Joe Walt 05/23/222110 [facility] HospitalMghsmf97-87-1014 Emergency department Note* Mara Ramos RN - 05/23/2022 8:53 PM EDT Bed: 13 Expected date: Expected time: Means of arrival: Comments: Room 2 Mara Ramos RN 05/23/222131 [facility] HospitalCskoxl26-09-8593 Emergency department Triage note* MARIXA Michael - 05/23/2022 8:53 PM EDT Complaint of intentional drug overdose tonight on multiple drugs and alcohol in a suicide attempt. Patient was given 2mg of narcan via ems. [facility] HospitalGofgye40-66-6050 Physician Emergency department Note* Mary Hamlin MD - 05/23/2022 8:53 PM EDT [facility] ED EMERGENCY DEPARTMENT ENCOUNTER Pt Name: Roro [...] disease) Hypertension Pancreatitis SVT (supraventricular tachycardia) (CMS/HCC) ([facility]) Tourette syndrome SURGICAL HISTORY Past Surgical History: [...] MEDICATIONS: New Prescriptions No medications on file @[facility]([phone]:LAST:1)@ (Please note: Portions of this note were completed with a voice recognition program. Efforts were made to edit the dictations but occasionally words and phrases are mis-transcribed.) Form v2016.J.5-cn Mary Hamlin MD (electronically signed) Emergency Medicine Provider Mary Hamlin MD 05/24/22 0003 [employer] Phone: [phone] 406-321904-14-2023 Physician Emergency department Note* Duong Milian MD [...] for psychiatric admission. Duong Milian MD 05/24/22 3081 [employer] Phone: [phone] 374-997603-24-2023 Emergency department Note* JOSÉ ANTONIO Mercedes CNP [...] 7. Limb Ataxia: Absent 8. Sensory Loss: Pxuq-eb-Llcgkltg Sensory Loss 9. Best Language: No Aphasia [...] 07:51:02 PM PATIENT REFERRED TO: Neetu Jiménez [address] [place] [address]., [address] [facility] [phone] Schedule an appointment as soon as possible [...] but it didn't work. documented in this encounterSSt. Anthony's HospitalRvgrpo14-67-7282 Emergency department Triage note* Roma Lutz RN - 05/02/2022 6:16 PM EDT Pt came with c/o numbness and tingling legs, arms and feet when standing. Chest pain and dizziness also present. All stated about a week ago worsened today. Thought is was heartburn and took omeprazole but it didn't work. [facility] HospitalMfdola87-92-2824 Physician Emergency department Note* JOSÉ ANTONIO Mercedes [...] 7. Limb Ataxia: Absent 8. Sensory Loss: Hrqk-xq-Dlzabgle Sensory Loss 9. Best Language: No Aphasia [...] REFERRED TO: Neetu Jiménez [facility] [address] [facility] [phone] Schedule an appointment as soon as [...] CNP 05/02/221953 JOSÉ ANTONIO Mercedes CNP 05/02/222006 [facility] HospitalHzotwm45-45-1783 History of Present illness Narrative* Luisa Kilgore [...] Vivitrol IM injection on day of discharge. Provider Relations Consultant recommendations: n/a. I spent total time 35 [...] mL, 30 mL, Oral, BID PRN, Carlitos rOta MD multiple vitamin tablet, 1 tablet, Oral, Daily, Carlitos Orta MD, 1 tablet at 03/16/22 0809 nicotine (Nicoderm, Step 1) 21 MG/24HR patch 1 patch, 1 patch, TransDERmal, Daily, Carlitos Orta MD, 1 patch at 03/16/22 115 ondansetron [...] Vivitrol IM injection on day of discharge. Provider Relations Consultant recommendations: n/a. I spent total time 35 [...] - 03/16/2022 4:28 AM EST Reports using [facility] on [address], . Closed at the moment will [...] that he tried it once at a constitution party on night and did alot and [...] VANITA Toribio - 03/19/2022 10:22 AM EST LUNCH COUNTER MANAGER saw patient to discuss aftercare plans and treatment post discharge. Patient was reminded abouta follow up appointment with [facility] on 03/26/22 at 11:20am. Patient denied current SI/HI/AVH. Patient reported that their step- mother would be picking them up from the hospital and taking them back home.Patient asked for a letter of admission. A letter was provided and a copy placed in patient's chart. Patient denied needing anything further from [facility] at the time. LUNCH COUNTER MANAGER informed patient'snurse about conversation. [facility] HospitalHgicwk96-95-6776 Note* Care Coordination - VANITA Toribio - 03/19/2022 10:22 AM EST LUNCH COUNTER MANAGER saw patient to discuss aftercare plans and treatment post discharge. Patient was reminded abouta follow up appointment with [facility] on 03/26/22 at 11:20am. Patient denied current SI/HI/AVH. Patient reported that their step- mother would be picking them up from the hospital and taking them back home.Patient asked for a letter of admission. A letter was provided and a copy placed in patient's chart. Patient denied needing anything further from LUNCH COUNTER MANAGER at the time. LUNCH COUNTER MANAGER informed patient'snurse about conversation. [facility] HospitalDbvhem87-19-9961 Miscellaneous Notes* Care Coordination - VANITA Toribio - 03/19/2022 10:22 AM EST LUNCH COUNTER MANAGER saw patient to discuss aftercare plans and treatment post discharge. Patient was reminded abouta follow up appointment with [facility] on 03/26/22 at 11:20am. Patient denied current SI/HI/AVH. Patient reported that their step- mother would be picking them up from the hospital and taking them back home.Patient asked for a letter of admission. A letter was provided and a copy placed in patient's chart. Patient denied needing anything further from LUNCH COUNTER MANAGER at the time. LUNCH COUNTER MANAGER informed patient'snurse about conversation. * Group Note [...] Roro Valdivia Date of : 1985 MR: [id number] Interventions utilized were Building rapport and engagement [...] VANITA Toribio - 03/18/2022 1:58 PM EST LUNCH COUNTER MANAGER called [facility] for intake appointment information. Staff explained that they were having issues with their fax machine and asked that information be re-sent. LUNCH COUNTER MANAGER will re-fax information. Staff will call LUNCH COUNTER MANAGER back with the follow up appointment information. * Care Coordination - VANITA Toribio - 03/17/2022 1:10 PM EST Patient is have social service assistant in the hallway. Patient asked for resources related to sober living. Patient asked for assistance in identifying sober living facilities. tail board worker explained the difficulties with sober living as they are not often licensed and accredited. tail board worker offered to provide patient with a list of resources and patient was agreeable to make his own phone calls. Patient asked for assistance as well for emergency rent and utilities. tail board worker provided patient with number to [facility] for emergency assistance as well as [facility]. Patient was also provided with [facility] for [facility]. Patient encouraged to seek out social service assistant should he identify any additional needs or services. at1:15 PM * Care Coordination - VANITA Toribio - 03/17/2022 11:08 AM EST LUNCH COUNTER MANAGER talked with patient about aftercare. Due to patient's need for community resources and case management, LUNCH COUNTER MANAGER offered to assist with referral to [facility]. Patient agreeable and signed ARI. LUNCH COUNTER MANAGER faxed referral for patient. Information will be [...] Patient has history of residential treatment at [facility]. Patient patient is unable to find significant [...] alone in [facility]. Patient reports that he has no contact with his mother and he has never met his father. Patient reports he does not have any siblings. Patient reports he was born and raised in [place] [facility] [place] by primarily his mother's adoptive parents. Patient [...] his GED while he was in the [employer]. Patient reports he is not currently working. Patient denies SI/SSD. Cultural/Spirituality/Leisure: Patient denies any cultural needs or concerns at the current time. Patient denies any buddhism preference at the current time. Patient reports [...] Patient is not currently engaged with [facility]. Patient has a past history of [facility].) Clinical Status (Recent): Hopelessness, Substance abuse or [...] Patient is interested in working with social service assistant establish an aftercare plan. tail board worker will continue to work with patient. Patient encouraged to gauge activities that are offered and lies on the unit. Patient not reporting additional at current time. Patient encouraged to seek out social service assistant and staff should he identify any additional [...] manageable levels Outcome: Progressing documented in this [facility]02-08-2023 Hospital course Narrative* Vinay Pacheco MD [...] [facility]. He was started on Zoloft [...] 427 ms QTC Interval 428 ms P Lyman 41 degrees QRS Lyman 5 degrees T Wave Lyman 2 degrees NE Interval 176 ms Imaging ECG 12 lead [...] pursue chemical dependency treatment at: Follow with [facility]. The patient was also instructed to: Attend AA/NA meetings or a similar 12-step program. Abstain from any mind or mood altering substances that are not prescribed. Follow up with their primary care doctor and/or psychiatrist as soon as possible. Recommended outpatient follow-up/testing: As above. Time spent on discharge summary: >30 minutes documented in this [facility]02-07-2023 Group counseling note* Group Note - Divine Lombardo - 03/18/2022 4:59 PM EST Inpatient Behavioral Health Services Department: [facility] Group Name: Recreation Therapy [...] Roro Valdivia Date of : 1985 MR: [id number] Interventions utilized were Building rapport and engagement [...] abuse (HCC) Elevated liver enzymes Panic disorder [facility] HospitalWudqyv86-94-2694 Note* Care Coordination - VANITA Toribio - 03/18/2022 1:58 PM EST LUNCH COUNTER MANAGER called [facility] for intake appointment information. Staff explained that they were having issues with their fax machine and asked that information be re-sent. LUNCH COUNTER MANAGER will re-fax information. Staff will call LUNCH COUNTER MANAGER back with the follow up appointment information. [facility] HospitalOmrvzv64-07-4927 Note* Care Coordination - VANITA Toribio - 03/18/2022 1:58 PM EST [facility]. Staff explained that they were having issues with their fax machine and asked that information be re-sent. LUNCH COUNTER MANAGER will re-fax information. Staff will call LUNCH COUNTER MANAGER back with the follow up appointment information. [facility] [id number] Nurse Note* Fay Lara RN - 03/18/2022 [...] 1600 He attended the 4 pm group. [facility] HospitalUsiupc53-98-0912 Nurse Note* Restricted notes were excluded * [...] . t 5:48 PM documented in this [facility]02-07-2023 Nurse Note* Feng Lizama RN - 03/18/2022 2:07 AM EST Pt pleasant and cooperative withdrawn to room. Pt denies SI/HI/AH/VH. Pt c/o abdominal pain and burning. PRN Tylenol and Maalox given. Meds were effective. Pt compliant with meds. [facility] HospitalSqimdv63-47-4195 Note* Care Coordination - VANITA Toribio - 03/17/2022 1:10 PM EST Patient is have social service assistant in the hallway. Patient asked for resources related to sober living. Patient asked for assistance in identifying sober living facilities. tail board worker explained the difficulties with sober living as they are not often licensed and accredited. tail board worker offered to provide patient with a list of resources and patient was agreeable to make his own phone calls. Patient asked for assistance as well for emergency rent and utilities. tail board worker provided [facility] for [facility] assistance as well as [facility]. Patient was also provided with information for [facility] the [facility]. Patient encouraged to seek out social service assistant should he identify any additional needs or services. at1:15 PM [facility] HospitalJkhfxx16-14-8210 Note* Care Coordination - VANITA Toribio - 03/17/2022 1:10 PM EST Patient is have social service assistant in the hallway. Patient asked for resources related to sober living. Patient asked for assistance in identifying sober living facilities. tail board worker explained the difficulties with sober living as they are not often licensed and accredited. tail board worker offered to provide patient with a list of resources and patient was agreeable to make his own phone calls. Patient asked for assistance as well for emergency rent and utilities. tail board worker provided patient with number to [facility] for emergency assistance as well as [facility]. Patient was also [facility]. Patient encouraged to seek out social service assistant should he identify any additional needs or services. at1:15 PM [facility] HospitalDrxswt34-45-9023 Note* Care Coordination - VANITA Toribio - 03/17/2022 11:08 AM EST LUNCH COUNTER MANAGER talked with patient about aftercare. Due to patient's need for community resources and case management, LUNCH COUNTER MANAGER offered to assist with referral to [facility]. Patient agreeable and signed ARI. LUNCH COUNTER MANAGER faxed referral for patient. Information will be added to discharge paperwork as appointments are scheduled. [facility] HospitalFjogie41-00-8420 Note* Care Coordination - VANITA Toribio - 03/17/2022 11:08 AM EST LUNCH COUNTER MANAGER talked with patient about aftercare. Due to patient's need for community resources and case management, LUNCH COUNTER MANAGER offered to assist with referral to [facility]. Patient agreeable and signed ARI. LUNCH COUNTER MANAGER faxed referral for patient. Information will be added to discharge paperwork as appointments are scheduled. [facility] HospitalOiiodw39-50-0057 Plan of care note* Care Plan - Christy Chauhan RN - 03/16/2022 9:19 PM EST Problem: Self Harm/Suicidality Goal: Will have no self-injury during hospital stay Outcome: Progressing Problem: Psychosis Goal: Will report no hallucinations or delusions Outcome: Progressing Problem: Anxiety Goal: Will report anxiety at manageable levels Outcome: Progressing [facility] [id number] Nurse Note* Yolanda Moreau RN - 03/16/2022 [...] each pt interaction. . t 5:48 PM [facility] HospitalJsxdvg80-88-4517 Hospital Discharge instructions* Discharge Instr - Other [...] National Suicide Prevention Hotline if needed at: 4-117-718-RMXE (7245) Please call the following number should you have questions regarding your discharge or aftercare appointments: 4 [facility] * Attachments The following attachments cannot be sent through Care Everywhere. * Naltrexone, ADULT (Maldivian) * Sertraline, ADULT (Maldivian) documented in this [facility]02-05-2023 Note* Care Coordination - VANITA Toribio [...] Patient has history of residential treatment at [facility]. Patient patient is unable to find significant [...] alone in [facility]. Patient reports that he has no contact with his mother and he has never met his father. Patient reports he does not have any siblings. Patient reports he was born and raised in [place] [facility] [facility] [place] by primarily his mother's adoptive parents. Patient [...] at the current time. Patient denies any buddhism preference at the current time. Patient reports [...] Patient is interested in working with social service assistant establish an aftercare plan. tail board worker will continue to work with patient. Patient encouraged to gauge activities that are offered and lies on the unit. Patient not reporting additional at current time. Patient encouraged to seek out social service assistant and staff should he identify any additional [...] to contact the dictating provider for clarification. [facility] HospitalUatadc00-56-6491 Note* Care Coordination - VANITA Toribio - [...] have a past history of IOP was [facility] which was court ordered. Patient does report [...] Patient has history of residential treatment at [facility]. Patient patient is unable to find significant [...] alone in [facility]. Patient reports that he has no contact with his mother and he has never met his father. Patient reports he does not have any siblings. Patient reports he was born and raised in [place] [facility] [facility] [place] by primarily his mother's adoptive parents. Patient [...] GED while he was in the [facility] house. Patient reports he is not currently working. Patient denies SI/SSD. Cultural/Spirituality/Leisure: Patient denies any cultural needs or concerns at the current time. Patient denies any buddhism preference at the current time. Patient reports [...] currently. Patient is not currently engaged with [facility]. Patient has a past history of PP [...] Patient is interested in working with social service assistant establish an aftercare plan. tail board worker will continue to work with patient. Patient encouraged to gauge activities that are offered and lies on the unit. Patient not reporting additional at current time. Patient encouraged to seek out social service assistant and staff should he identify any additional [...] to contact the dictating provider for clarification. [facility] [id number] History and physical note* Carlitos Orta MD [...] later did get his GED while in group home). He has never gone more than a day or two as an adult without drinking. He admits to experimenting with opioid pain pills and fentanyl although he overdosed and decided to stop opioid use about a year ago. He admits to ongoing and sporadic cocaine and meth use in addition to daily alcohol use. He was forced to go to [facility] and inpatient treatment at [facility] as [...] Psychiatric History Current Psychiatrist: has gone to [facility] in the recent past; unclear [...] Electronically Signed On 03-15-2022 22:26:15 EST by [employer] Recent Results (from the past 48 hour(s)) [...] 427 ms QTC Interval 428 ms P Lyman 41 degrees QRS Lyman 5 degrees T Wave Lyman 2 degrees NE Interval 176 ms Medications Home Medications Current [...] we can get him an appointment at [facility] where he has established before [...] rehab, Vivitrol IMinjection on day of discharge. Provider Relations Consultant recommendations: n/a. I spent total time 75 minutes reviewing the patient's medical record, reviewing test results, educating and then counseling the patient on any substance use disorder or chemical dependency related issues. This included a face to face evaluation and physical examination, coordinating care on a substance use disorder treatment plan as well as documenting clinical information on the day of visit. [facility] HospitalUvsvis80-93-7433 History and physical note* Carlitos Orta MD [...] later did get his GED while in group home). He has never gone more than a day or two as an adult without drinking. He admits to experimenting with opioid pain pills and fentanyl although he overdosed and decided to stop opioid use about a year ago. He admits to ongoing and sporadic cocaine and meth use in addition to daily alcohol use. He was forced to go to [facility] and inpatient treatment at [facility] as [...] Psychiatric History Current Psychiatrist: has gone to [facility] in the recent past; unclear [...] Signed On 03-15-2022 22:26:15 EST by Josselineluis SinghGusRhomania Recent Results (from the past 48 hour(s)) [...] 427 ms QTC Interval 428 ms P Lyman 41 degrees QRS Lyman 5 degrees T Wave Lyman 2 degrees NE Interval 176 ms Medications Home Medications Current [...] we can get him an appointment at [facility] where he has established before [...] rehab, Vivitrol IMinjection on day of discharge. Provider Relations Consultant recommendations: n/a. I spent total time 75 [...] the day of visit. documented in this [facility]02-05[facility]2023 Plan of care note* Care Plan [...] the shift include decrease nausea and anxiety [facility] HospitalGuvgrh71-88-9928 Plan of care note* Care Plan - Christy Chauhan RN - 03/16/2022 12:40 AM EST Problem: Self Harm/Suicidality Goal: Will have no self-injury during hospital stay Outcome: Progressing Problem: Psychosis Goal: Will report no hallucinations or delusions Outcome: Progressing Problem: Anxiety Goal: Will report anxiety at manageable levels Outcome: Progressing [facility] HospitalCdpqan26-96-2145 Emergency department Note* Jovita Thompson RN - 03/15/2022 11:25 PM EST Pt transported to [address] [place] [address] with RN and protective services at bedside. No distress noted. Jovita Thompson RN 03/15/22 0785 Ana M Ywzjfa74-78-9415 Emergency department Note* Jovita Thompson RN - 03/15/2022 11:25 PM EST Pt transported to [address] [place] [address] with RN and protective services at bedside. [...] 03/15/2022 8:52 PM EST Pt placed on court monitor. Seizure precautions in place; side rails up [...] reflux disease) Hypertension Pancreatitis SVT (supraventricular tachycardia) ([facility] ([facility]) Tourette syndrome SURGICAL HISTORY Past Surgical History: [...] dictating provider for clarification.) Josseline Weber MD [facility] Josseline Weber MD 03/15/22 3838 documented in this [facility]02-04-2023 Emergency department Note* Jovita Thompson RN - 03/15/2022 11:24 PM EST Pt changed into 2 gowns and socks. Pt wanded by Protective Services and belonging check done. Pt has 2 bags. Jovita Thompson RN 03/15/22 2325 [address]ctzku93-82-4082 Emergency department Note* Jovita Thompson RN - 03/15/2022 10:58 PM EST Report called to Sis SHI on 4E. Jovita Thompson RN 03/15/22 2254 [address]Qtklbn91-71-6037 Emergency department Note* Jovita Thompson RN - 03/15/2022 10:31 PM EST Beatris LOPEZ at bedside. Jovita Thompson RN 03/15/22 223 [address]Jqmbbv48-19-7103 Emergency department Note* Jovita Thompson RN - 03/15/2022 10:15 PM EST EKG at bedside. Jovita Thompson RN 03/15/22 2215 [address]Jhjyvd63-90-0061 Emergency department Note* Jovita Thompson RN - 03/15/2022 9:32 PM EST Pt ambulated with steady gait to restroom to give urine sample. Jovita Thompson RN 03/15/222131 [address]Nmggrn25-36-3597 NoteNOTE: This result is for medical treatment only. Analysis performed using non-forensic procedures. [facility] HospitalPkakkp45-83-0236 Emergency department Note* Jovita Thompson RN - 03/15/2022 8:[address] Weber at bedside. Jovita Thompson RN 03/15/222058 [facility] HospitalFiwkay26-80-7783 Emergency department Note* Jovita Thompson RN - 03/15/2022 8:52 PM EST Pt placed on court monitor. Seizure precautions in place; side rails up and padded. Jovita Thompson RN 03/15/222051 [address]Cpjpxk49-16-0174 Emergency department Note* Jovita Thompson RN - 03/15/2022 8:16 PM EST Beatris LOPEZ at bedside. Jovita Thompson RN 03/15/222015 [address]Wonixj39-87-5906 Physician Emergency department Note* ESTRELLA Tavarez - [...] reflux disease) Hypertension Pancreatitis SVT (supraventricular tachycardia) ([facility]) ([facility]) Tourette syndrome SURGICAL HISTORY Past Surgical History: [...] signed) Emergency Medicine Provider ESTRELLA Tavarez 03/15/222239 [facility] HospitalXngvya46-77-4614 Physician Emergency department Note* Josseline Weber MD [...] dictating provider for clarification.) Josseline Weber MD [facility] Josseline Weber MD 03/15/22 4009 [facility] [employer] Work Phone: Consult note [facility] Medical Records Department [address] [facility] [place] [place] [address] Counseling Note - Pharmacy 12/01/242 MR#: [id number] Acct: [id number] Name: RORO VALDIVIA Rep #:[id number] : 1985 39 From: [place] gary PCP: Care Physician,No Primary Status :ADM IN Y Location: [place]69[place]7 Pharmacy [place] Med Reconciliation Pharmacy Service has performed discharge [...] Signature (if applicable): Date CC: ~ Signed [facility] Author Israel Rodriguez [facility] Note Date/Time December 01, 2024 1 :15pm [facility] Medical Records Department [address] [place] [address] Counseling Note - Pharmacy 12/01/24 1022 MR#: [id number] Acct: [id number] Name: RORO VALDIVIA Rep #:[id number] : 1985 39 From: [place] gary PCP: Care Physician,No Primary Status :ADM IN Y Location: [place] [address] Pharmacy [place] Med Reconciliation Pharmacy Service has performed discharge [...] Signature (if applicable): Date CC: ~ Signed [facility] Work Phone: Discharge summary [facility] Medical Records Department [address] [place] [address] Discharge Summary 12/01/24 0959 MR#: [id number] Acct: [id number] Name: MIGDALIARORO ERAZO ADRIAN Rep #:[id number] : 1985 39 From: Joe Mcmillan DO PCP: Care Physician,No Primary Status :ADM IN Location: [place] [address] Providers Date of Admission: 11/30/24 Primary Care [...] has cirrhosis by his GI physicians in [place]. Advised ongoing discontinuation of alcohol. DVT prophylaxis [...] Self Care Charges/Coding Visit Charges Inpatient E&M: 67581 Disch Hosp 12/01/24 1003 Cosigner Signature (if applicable): CC: Dr. Joe Mcmillan DO; No Primary Care Physician~ Signed [facility] summary Author Joe Mcmillan [facility] Note Date/Time December 01, 2024 1 1:03am [facility] Medical Records Department [address] [place] [address] Discharge Summary 12/01/24 0959 MR#: [id number] Acct: [id number] Name: RORO VALDIVIA Rep #:[id number] : 1985 39 From: Joe Mcmillan DO PCP: Care Physician,No Primary Status :ADM IN Location: [place] [address] Providers Date of Admission: 11/30/24 Primary Care [...] has cirrhosis by his GI physicians in [place]. Advised ongoing discontinuation of alcohol. DVT prophylaxis [...] Self Care Charges/Coding Visit Charges Inpatient E&M: 31560 Disch Hosp 12/01/24 1003 <Electronically signed by Joe Mcmillan DO> Cosigner Signature (if applicable): CC: Dr. Joe Mcmillan DO; No Primary Care Physician~ Signed [facility] Work Phone: Evaluation note* Diagnosis Chest pain, unspecified type- Primary Anxiety attack Panic disorder without agoraphobia documented in this encounter [facility]* Diagnosis Suicide attempt (HCC)- Primary Suicide and self-inflicted injury by unspecified means [facility]* Diagnosis Anxiety- Primary Anxiety state, unspecified [facility]* Diagnosis Acute gout of left foot, unspecified cause- Primary [facility]* Diagnosis Alcohol abuse- Primary Nondependent alcohol abuse, unspecified drinking behavior Alcohol abuse Nondependent alcohol abuse, unspecified drinking behavior [facility]* Diagnosis Sprain of left knee, initial encounter- Primary Closed head injury, initial encounter [facility]* Diagnosis Alcohol withdrawal syndrome without complication (HCC)- Primary Alcohol withdrawal syndrome without complication (HCC) Polysubstance abuse (CMS/HCC) (HCC) Other, mixed, or unspecified nondependent drug abuse, unspecified Opioid use disorder Polysubstance use disorder Benzodiazepine withdrawal with complication (HCC) Opioid withdrawal (HCC) Drug withdrawal Amphetamine withdrawal (HCC) Drug withdrawal [facility]* Diagnosis Severe opioid use disorder (HCC)- Primary Alcohol-induced insomnia (CMS/HCC) (HCC) Mild intermittent asthma without complication Anxiety Anxiety state, unspecified Tourette syndrome Tourette's disorder Severe alcohol use disorder (HCC) Encounter for smoking cessation counseling Nausea Nausea alone documented [facility]* Diagnosis Severe opioid use disorder (HCC)- Primary Alcohol-induced insomnia (CMS/HCC) (HCC) Mild intermittent asthma without complication Anxiety Anxiety state, unspecified Tourette syndrome Tourette's disorder Severe alcohol use disorder (HCC) Encounter for smoking cessation counseling Nausea Nausea alone documented [facility]* Diagnosis Gastroesophageal reflux disease without esophagitis- Primary Esophageal reflux Anxiety Anxiety state, unspecified Alcohol-induced insomnia (CMS/HCC) (HCC) Severe opioid use disorder (HCC) documented [facility]* Diagnosis 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 [facility]* Diagnosis 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 Polysubstance use disorder Panic disorder Panic disorder without agoraphobia Alcohol abuse Nondependent alcohol abuse, unspecified drinking behavior Tourette syndrome Tourette's disorder SVT (supraventricular tachycardia) Other specified cardiac dysrhythmias History of pancreatitis Personal history of other diseases of digestive disease [facility]* Diagnosis Positive 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- [...] latent tuberculosis- Primary [facility]* Diagnosis Opioid use disorder, severe, on maintenance therapy (HCC)- Primary [facility] Diagnosis Severe opioid use disorder (HCC)- Primary Palpitations documented in this [facility]* Diagnosis Severe opioid use disorder (HCC)- Primary Palpitations [facility] Diagnosis Severe opioid use disorder (HCC) [facility] Diagnosis Alcohol use disorder- Primary Alcohol use disorder Hypoxia Hypoxemia Transaminitis Nonspecific elevation of levels of transaminase or lactic acid dehydrogenase (LDH) Opioid withdrawal (HCC) Drug withdrawal Anxiety Anxiety state, unspecified documented [facility] Diagnosis Opioid withdrawal (HCC) Drug withdrawal [facility] Diagnosis Opioid withdrawal (HCC) Drug withdrawal [facility] Diagnosis Alcohol withdrawal syndrome without [...] psychotic features (HCC) [facility] Diagnosis Anxiety Anxiety state, unspecified Palpitations Opioid withdrawal (HCC) Drug withdrawal [facility] Diagnosis Severe opioid use disorder (HCC) Major depressive disorder, recurrent episode, moderate (HCC) Major depressive disorder, recurrent episode, moderate RODRIGUEZ (generalized anxiety disorder) Generalized anxiety disorder Motor tic disorder Tic disorder, unspecified [facility] Diagnosis Opioid withdrawal (HCC) Drug withdrawal Severe alcohol use disorder (HCC) Major depressive disorder, recurrent episode, moderate (HCC) Major depressive disorder, recurrent episode, moderate RODRIGUEZ (generalized anxiety disorder) Generalized anxiety disorder Motor tic disorder Tic disorder, unspecified [facility] Diagnosis Severe opioid use disorder (HCC) Motor tic disorder Tic disorder, unspecified Major depressive disorder, recurrent episode, moderate (HCC) Major depressive disorder, recurrent episode, moderate RODRIGUEZ (generalized anxiety disorder) Generalized anxiety disorder Severe alcohol use disorder (HCC) documented [facility] Diagnosis Severe opioid use disorder (HCC) Motor tic disorder Tic disorder, unspecified [facility]* Diagnosis Alcohol-induced acute pancreatitis, unspecified complication status- Primary [facility]* Diagnosis Severe opioid use disorder (HCC) Severe alcohol use disorder (HCC) Major depressive disorder, recurrent episode, moderate (HCC) Major depressive disorder, recurrent episode, moderate RODRIGUEZ (generalized anxiety disorder) Generalized anxiety disorder Tourette syndrome Tourette's disorder documented in this [facility]* Diagnosis Alcohol-induced acute pancreatitis, unspecified complication status- Primary documented in this [facility]* Diagnosis Acute recurrent pancreatitis- Primary Acute pancreatitis Acute recurrent pancreatitis Acute pancreatitis documented in this [facility]* Diagnosis Severe alcohol use disorder (HCC) Major depressive disorder, recurrent episode, moderate (HCC) Major depressive disorder, recurrent episode, moderate RODRIGUEZ (generalized anxiety disorder) Generalized anxiety disorder Tourette syndrome Tourette's disorder documented in [facility]* Diagnosis Acute pancreatitis without infection or necrosis- Primary Acute pancreatitis without infection or necrosis Cardiomegaly Arm vein blood clot, right Moderate malnutrition (CMS/HCC) (HCC) documented in this [facility]* Diagnosis Alcoholic intoxication without complication (CMS/HCC) (HCC)- Primary Alcoholic intoxication without complication (CMS/HCC) (HCC) Hematemesis of unknown etiology Other depression Hematemesis of unknown etiology documented in this [facility]* Diagnosis Abdominal pain, epigastric- Primary Acute pancreatitis, unspecified complication status, unspecified pancreatitis type documented in this [facility]* Diagnosis Alcohol withdrawal with inpatient treatment, uncomplicated (HCC)- Primary Alcohol withdrawal with inpatient treatment, uncomplicated (HCC) Severe alcohol use disorder (HCC) Cocaine abuse (HCC) Nondependent cocaine abuse, unspecified Elevated liver enzymes Other nonspecific abnormal serum enzyme levels Panic disorder Panic disorder without agoraphobia documented in this encounter [facility]* Diagnosis Alcohol-induced acute pancreatitis, unspecified complication status- Primary Abdominal pain, generalized Alcohol-induced acute pancreatitis, unspecified complication status documented in this [facility]* Diagnosis Alcohol withdrawal syndrome without complication (HCC)- Primary Alcohol withdrawal syndrome without complication (HCC) Severe malnutrition (CMS/HCC) (HCC) Nutritional marasmus documented in this [facility]* Diagnosis Pain of upper abdomen- Primary Transaminitis Nonspecific elevation of levels of transaminase or lactic acid dehydrogenase (LDH) Alcohol-induced chronic pancreatitis (CMS/HCC) (HCC) Chronic pancreatitis Alcohol use disorder documented in this [facility]* Diagnosis Severe alcohol use disorder (HCC) Major depressive disorder, recurrent episode, moderate (HCC) Major depressive disorder, recurrent episode, moderate RODRIGUEZ (generalized anxiety disorder) Generalized anxiety disorder Tourette syndrome Tourette's disorder documented in this [facility]* Diagnosis Alcohol-induced acute pancreatitis, unspecified complication status- Primary Alcohol-induced acute pancreatitis, unspecified complication status Alcohol withdrawal syndrome without complication (HCC) Pancreatitis, unspecified pancreatitis type Pancreatitis, unspecified pancreatitis type documented in this encounter [facility]* Diagnosis Acute recurrent pancreatitis- Primary Acute pancreatitis Acute recurrent pancreatitis Acute pancreatitis documented in this [facility]* Diagnosis Alcohol-induced acute pancreatitis without infection or necrosis- Primary documented in this [facility]* Diagnosis Alcohol-induced chronic pancreatitis (CMS/HCC) (HCC)- Primary Chronic pancreatitis Abdominal pain, generalized documented in this [facility]* Diagnosis Acute on chronic pancreatitis (CMS/HCC) (HCC)- Primary documented in this [facility]* Diagnosis Acute on chronic pancreatitis (CMS/HCC) (HCC)- Primary History of alcohol abuse Nondependent alcohol abuse, in remission Polysubstance use disorder documented in this [facility]* Diagnosis Alcohol-induced chronic pancreatitis (CMS/HCC) (HCC)- Primary Chronic pancreatitis Pain of upper abdomen Acute on chronic pancreatitis (CMS/HCC) (HCC) documented in this [facility]* Diagnosis Abdominal pain, unspecified abdominal location- Primary Chronic pancreatitis, unspecified pancreatitis type (HCC) documented in this [facility]* Diagnosis Alcohol-induced chronic pancreatitis (CMS/HCC) (HCC)- Primary Chronic pancreatitis documented in this [facility]* Diagnosis Epigastric abdominal pain- Primary Abdominal pain, epigastric Chronic pancreatitis, unspecified pancreatitis type (HCC) documented in this [facility]* Diagnosis Acute on chronic pancreatitis (CMS/HCC) (HCC) documented in this [facility]* Diagnosis Alcohol-induced acute pancreatitis without infection or necrosis- Primary documented in this [facility]* Diagnosis Severe opioid use disorder (HCC) Severe alcohol use disorder (HCC) Other watermaster (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 documented in this [facility]* Diagnosis Severe opioid use disorder (HCC) Motor tic disorder Tic disorder, unspecified RODRIGUEZ (generalized anxiety disorder) Generalized anxiety disorder Major depressive disorder, recurrent episode, moderate (HCC) Major depressive disorder, recurrent episode, moderate documented in this encounter [facility] note* Diagnosis Alcohol induced acute pancreatitis without necrosis or infection- Primary Elevated liver enzymes Other nonspecific abnormal serum enzyme levels documented in this encounter [facility] note* Diagnosis Alcohol induced acute pancreatitis without necrosis or infection- Primary Elevated liver enzymes Other nonspecific abnormal serum enzyme levels Elevated liver enzymes Other nonspecific abnormal serum enzyme levels documented in this encounter [facility] note* Diagnosis Elevated liver enzymes- Primary Other nonspecific abnormal serum enzyme levels documented in this encounter [facility] note* Diagnosis Alcoholic cirrhosis of liver without ascites (CMS/HCC) (HCC)- Primary Alcohol induced acute pancreatitis without necrosis or infection Elevated liver enzymes Other nonspecific abnormal serum enzyme levels History of alcohol abuse Nondependent alcohol abuse, in remission Polysubstance use disorder History of esophagitis [facility] Diagnosis Alcoholic cirrhosis of liver without ascites (HCC)- Primary Alcohol induced acute pancreatitis without necrosis or infection Elevated liver enzymes Other nonspecific abnormal serum enzyme levels History of alcohol abuse Nondependent alcohol abuse, in remission Polysubstance use disorder History of esophagitis documented in this encounter [facility] note* Diagnosis Elevated liver enzymes- Primary Other nonspecific abnormal serum enzyme levels History of esophagitis documented in this encounter [facility] note* Diagnosis Elevated liver enzymes- Primary Other nonspecific abnormal serum enzyme levels History of esophagitis documented in this encounter [facility] note* Diagnosis Extraction of tooth needed- Primary History of esophagitis documented in this encounter [facility] note* Diagnosis Extraction of tooth needed- Primary History of esophagitis documented in this encounter [facility] note* Diagnosis Onset Date Resolution Status Admit Date Anxiety disorder with panic attacks resolved November 30 1:34am Chronic alcohol abuse resolved Nov 1:34am Depression resolved November 30, 2024 1:34am History of drug abuse resolved Nov 1:34am Tobacco abuse resolved November 1:34am [facility] Work Phone: History and physical note [facility] Medical Records Department [address] [place] [id number] H&P Exam - Hospitalist 10/22/25 0022 MR#: [id number] Acct: [id number] Name: RORO VALDIVIA Rep #:[id number] : 1985 39 From: Lázaro Ortez DO PCP: Care Physician,No Primary Status :ADM IN Location: [facility] [id number] [facility] Date of Admission: 11/30/24 Date of [...] on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 [place] [address] PCP - General Family Medicine 10/16/23 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 Start Date End Date Tam Hughes DO [address] [place] [address] PCP - General Family Medicine 10/16/23 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 Start Date End Date Tam Hughes DO [address] [place] [address] PCP - General Family Medicine 10/16/23 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 Start Date End Date Tam Hughes DO [address] [place] [address] PCP - General Family Medicine 10/16/23 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 Start Date End Date Tam Hughes DO [address] [place] [address] PCP - General Family Medicine 10/16/23 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 Start Date End Date Tam Hughes DO [address] [facility] [place] [address] PCP - General Family Medicine 10/16/23 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 Start Date End Date Tam Hughes DO [address] [facility] [place] [address] PCP - General Family Medicine 10/16/23 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 Start Date End Date Tam Hughes DO [address] [facility] [place] [address] PCP - General Family Medicine 10/16/23 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 Start Date End Date Tam Hughes DO [address] [place] [address] PCP - General Family Medicine 10/16/23 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 Start Date End Date Tam Hughes DO [address] [facility] [place] [address] PCP - General Family Medicine 10/16/23 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 Start Date End Date Tam Hughes DO [address] [facility] [place] [address] PCP - General Family Medicine 10/16/23 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 Start Date End Date Tam Hughes DO [address] [place] [address] PCP - General Family Medicine 10/16/23 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 Start Date End Date Tam Hughes DO [address] [facility] [place] [address] PCP - General Family Medicine 10/16/23 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 Start Date End Date Tam Hughes DO [address] [facility] [place] [address] PCP - General Family Medicine 10/16/23 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 Start Date End Date Tam Hughes DO [address] [place] [address] PCP - General Family Medicine 10/16/23 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 Start Date End Date Tam Hughes DO [address] [place] [address] PCP - General Family Medicine 10/16/23 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 Start Date End Date Tam Hughes DO [address] [place] [address] PCP - General Family Medicine 10/16/23 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 Start Date End Date Tam Hughes DO [address] [facility] [place] [address] PCP - General Family Medicine 10/16/23 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 Start Date End Date Tam Hughes DO [address] [facility] [place] [address] PCP - General Family Medicine 10/16/23 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 Start Date End Date Tam Hughes DO [address] [facility] [place] [address] PCP - General Family Medicine 10/16/23 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 Start Date End Date Tam Hughes DO [address] [facility] [place] [address] PCP - General Family Medicine 10/16/23 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 Start Date End Date Tam Hughes DO [address] [facility] [place] [address] PCP - General Family Medicine 10/16/23 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 Start Date End Date Tam Hughes DO [address] [facility] [address] PCP - General Family Medicine 10/16/23 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 Start Date End Date Tam Hughes DO [address] [facility] [address] PCP - General Family Medicine 10/16/23 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 Start Date End Date Tam Hughes DO [address] [place] [address] PCP - General Family Medicine 10/16/23 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 Start Date End Date aTm Hughes DO [address] [place] [address] PCP - General Family Medicine 10/16/23 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 Start Date End Date Tam Hughes DO [address] [place] [address] PCP - General Family Medicine 10/16/23 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 Start Date End Date Tam Hughes DO [address] [place] [address] PCP - General Family Medicine 10/16/23 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 [employer] provides no warranty or guarantee of the accuracy or completeness of information in this document.
--- OUTSIDE RECORDS SUMMARY | 2025-02-05 21:29 | XMS RPT_ITS | CCD ---
Author Organization [facility] CliniSyky Care Team Providers Care Core Mounter Name Role Phone GALVEZ, JINA Unavailable Unavailable [...] Provider German Jiménezgh A Primary Care Provider [facility] Primary Care Provider Unav ailable Unavailable Primary Care Provider UnavailCONSTANCE Landon Attending Unavailable TAM HUGHES Primary Care Unavailable Tam Hughes DO Primary Care Provider [phone] Tam Hughes DO Primary Care Provider TAM [...] No Primary Primary Care Physicia n Unavailable [facility], Dr. Fitzgerald Emergency Departmen t Physician [...] Care Unavailable NEVAEH HOWARD Attending Unavailable ANT CRATY Admitting Unavailable RICH, TAM Primary Care Unavailable [...] mg docusate sodium 50 mg / sennosides, senior care 8.6 mg oral tablet (20 sources) Start: [...] 50 MG 24 hr tablet Indications: Per [facility] last filled 08/05/2023 for a 15 [...] acamprosate (Campral) EC tab let 666 mg [id number] 200 actuat albuter ol 0.09 mg/actuat metered [...] 20 mg/ml oral suspension (2 sources) Uncompetitive Z-aeqbfk-J-aspartat e Receptor Antagonist, Sigma-1 Agonist Start: 04-16-2024 [...] 1 dose 0.5 ml heparin sodium, porcine 12605 unt/ml prefilled syringe (2 sources) Unfractionated Heparin, [...] give if having a seizure. Please notify regional hr manager attending if utilized., Starting on Thu08/11/23 at [...] (PriLOSEC) [address] capsule Indications: Per [facility] last filled 07/30/2023 for a 30 [...] (Luminal) tablet 97.2 mg polyethylene glycol 3350 11790 mg powder for oral solution (16 sources) [...] (2 times per day), First dose on [facility] 12/08/24 at 2100 Start: 12-08-2024 End: 12-08-2024 10 mL, IntraVENous, Every 12 hours scheduled (2 times per day), First dose on [facility] 12/08/24 at 2100, Preprocedure Start: 12-08-2024 End: 12-08-2024 10 mL, IntraVENous, Every 12 hours scheduled (2 times per day), First dose on [facility] 12/08/24 at 2100 Start: 12-08-2024 End: 12-08-2024 take 100 mL intravenously every hour as needed, then take 20 mL intravenously every hour as needed 5-250 mL/hr, IntraVENous, PRN, if patient receiving piggyback infusions and maintenance fluids are not ordered OR KVO fluids to protect IV site / prevent frequent line interruptions/ long duration, Starting on [facility] 12/08/24 at 1231, Preprocedure, For piggyback [...] mL, IntraVENous, PRN, line care, Starting on [facility] 12/08/24 at 1231, Preprocedure, After every [...] in infancy childhood or adolescence (20 sources) Adngelo de la Tourette's syndrome; Translations: [Tourette's disorder] [...] current use of drug therapy; Translations: [Other usp (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] 10-21-2023 Episodic Other and [...] [facility] Facility 36on 12-16-2024 36 Normal [facility] 36on 12-13-2024 36 Normal [facility] [id number] 12-08-2024 [id number] Normal [facility] [id number] 12-08-2024 [id number] Request from [facility] for setting up transport home. WC van set up in [employer], claimed by [employer] at 3pm. Normal [facility] Anesthesia Noteon 12-08-2024 Anesthesia Note Normal [facility] Anesthesia Note Normal [facility] Nursing Noteon 12-08-2024 Nursing Note Normal [facility] Op Noteon 12-08-2024 Op Note Normal [facility] 36on 12-01-2024 36 Normal [facility] H AND P Exam - Hospitaliston 11-30-2024 H&P Exam - Hospitalist [facility] Medical Records Department [address] [place] [address] H P Exam - Hospitalist 11/30/24 0022 MR#: [id number] Acct: [id number] Name: RORO VALDIVIA Rep #: [id number] : 1985 39 From: Lázaro Brush DO PCP: Care Physician,No Primary Status:ADM IN Location: [place]3 [id number] [facility] - General General Date of Admission: [...] and GERD; on pantoprazole who presents to [facility] ER requesting EtOH detox. Mr. Valdivia [...] is expected to extend beyond 2 midnights. [facility] Medical History Anxiety Liver fibrosis Cirrhosis of [...] Pressure Source (more content not included)... Normal [facility] Absolute lymphocyte countOrd ered By: Amilcar Dumont on 11-29-2024 Lymphocytes Auto (Unsp spec) [#/Vol] 1.62 10*3/uL 0.83-4.51 [facility] Absolute neutrophil countOrd ered By: Amilcar Dumont on 11-29-2024 Neutrophils (Bld) [#/Vol] 3.6 10*3/uL 2.0-7.7 [facility] Alcohol, Blood (Medical)-Ser umon 11-29-2024 SERUM ETOH 33.5 mg/dL High <=10.0 [facility] Comment on above: Result Comment: This test is for medical purposes only. The legal definition of intoxication varies according to local law. Performed By: #### L 505.5000, L500.4050, L501.9100, L100.0100 #### [facility] [address] [place], [address] Amphetamine detection with 1 000 ng/mL as cutoffOrdered By: Amilcar Dumont on 11-29-2024 Amphetamines Screen method >1000 ng/mL Ql (U) Negative < 200 ng/mL [facility] Anion gap in Serum or Plasma Ordered By: Amilcar Dumont on 11-29-2024 Anion gap [Moles/Vol] 14 mmol/L 5- [facility] Automated lymphocyte count a s percentage of total leukocytesOrdered By: Amilcar Dumont on 11-29-2024 Lymphocytes/100 WBC Auto (Unsp spec) 28.2 % - [facility] BUN/creatinine ratioOrdered By: Amilcar Dumont on 11-29-2024 Urea nitrogen/Creatinine [Mass ratio] 4.3 mg/mg Low - [facility] Comment on above: Previous reported re sult: 4.1 RATIOEdited by: ARMANDO on 11/29/24:8 AMENDED REPORT 11/29/242247 BUN/CRE previously reported as: 4.1 L RATIO Basophil percentageOrdered B y: Amilcar Dumont on 11-29-2024 Basophils/100 WBC (Bld) 0.3 % 0-1 [facility] Bilirubin, totalOrdered By: Amilcar Dumont on 11-29-2024 Bilirubin [Mass/Vol] 1.48 mg/dL High 0.00-1.30 [facility] CBC W/Diff, Automatedon 11-10 Absolute Lymph 1.62 X10 3/uL Normal 0.83-4.51 [facility] Comment on above: Performed By: #### L 505.5000, L500.4050, L501.9100, L100.0100 #### [facility] [address] [place], [address] Absolute Neut 3.6 X10 3/uL Normal 2.0-7.7 [facility] Comment on above: Performed By: #### L 505.5000, L500.4050, L501.9100, L100.0100 #### [facility] [address] [place], [address] Basophils/100 WBC (Bld) 0.3 % Normal 0-1 [facility] Comment on above: Performed By: #### L 505.5000, L500.4050, L501.9100, L100.0100 #### [facility] [address] [place], [address] Eosinophils/100 WBC (Bld) 0.5 % Normal 0-5 [facility] Comment on above: Performed By: #### L 505.5000, L500.4050, L501.9100, L100.0100 #### [facility] [address] [place], [address] Erythrocyte distribution width (RBC) [Ratio] 14.1 % Normal 11.6-14.6 [facility] Comment on above: Performed By: #### L 505.5000, L500.4050, L501.9100, L100.0100 #### [facility] [address] [place], [address] Hematocrit (Bld) [Volume fraction] 37.0 % Low 40-54 [facility] Comment on above: Performed By: #### L 505.5000, L500.4050, L501.9100, L100.0100 #### [facility] [address] [place], [address] Hemoglobin (Bld) [Mass/Vol] 12.5 g/dL Low 13.0-16.5 [facility] Comment on above: Performed By: #### L 505.5000, L500.4050, L501.9100, L100.0100 #### [facility] [address] [place], [address] IG% 0.200 Normal 0.0-0.9 [facility] Comment on above: Result Comment: IG% - Immature Granulocytes (promyelocytes, myelocytes and metamyelocytes) > 1% indicates that a LEFT SHIFT is Present. Performed By: #### L 505.5000, L500.4050, L501.9100, L100.0100 #### [facility] [address] [place], [address] Lymphocytes/100 WBC (Bld) 28.2 % Normal 19-41 [facility] Comment on above: Performed By: #### L 505.5000, L500.4050, L501.9100, L100.0100 #### [facility] [address] [place], [address] MCH (RBC) [Entitic mass] 30.2 pg Normal 27.0-32.0 [facility] Comment on above: Performed By: #### L 505.5000, L500.4050, L501.9100, L100.0100 #### [facility] [address] [place], [address] MCHC (RBC) [Mass/Vol] 33.8 g/dL Normal 32-36 [facility] Comment on above: Performed By: #### L 505.5000, L500.4050, L501.9100, L100.0100 #### [facility] [address] [place], [address] MCV (RBC) [Entitic vol] 89.4 fL Normal 80-94 [facility] Comment on above: Performed By: #### L 505.5000, L500.4050, L501.9100, L100.0100 #### [facility] [address] [place], [address] Monocytes/100 WBC (Bld) 7.5 % Normal 0-10 [facility] Comment on above: Performed By: #### L 505.5000, L500.4050, L501.9100, L100.0100 #### [facility] [address] [place], [address] Neutrophils/100 WBC (Bld) 63.3 % Normal 47-70 [facility] Comment on above: Performed By: #### L 505.5000, L500.4050, L501.9100, L100.0100 #### [facility] [address] [place], [address] Nucleated RBC (Bld) [#/Vol] 0 10*3/uL Normal 0-5 [facility] Comment on above: Performed By: #### L 505.5000, L500.4050, L501.9100, L100.0100 #### [facility] [address] [place], [address] Platelet mean volume (Bld) [Entitic vol] 10.1 fL Normal 6.2-12.0 [facility] Comment on above: Performed By: #### L 505.5000, L500.4050, L501.9100, L100.0100 #### [facility] [address] [place], [address] Platelets (Bld) [#/Vol] 141 10*3/uL Low 150-450 [facility] Comment on above: Performed By: #### L 505.5000, L500.4050, L501.9100, L100.0100 #### [facility] [address] [place], [address] RBC (Bld) [#/Vol] 4.14 10*6/uL Low 4.6-6.2 [facility] Comment on above: Performed By: #### L 505.5000, L500.4050, L501.9100, L100.0100 #### [facility] [address] [place], [address] RDW SD 45.7 fl High 35.1-43.9 [facility] Comment on above: Performed By: #### L 505.5000, L500.4050, L501.9100, L100.0100 #### [facility] [address] [place], [address] WBC (Bld) [#/Vol] 5.8 10*3/uL Normal 4.4-11.0 [facility] Comment on above: Performed By: #### L 505.5000, L500.4050, L501.9100, L100.0100 #### [facility] [address] [place], [address] Carbon dioxide, total [Moles /volume] in Central venous bloodOrdered By: Amilcar Dumont on 11-29-2024 CO2 [Moles/Vol] 23.8 mmol/L 21.0-32.0 [facility] Chloride assayOrdered By: Edu Dumont on 11-29-2024 Chloride [Moles/Vol] 100 mmol/L 98-108 [facility] Comprehensive Metabolic Prof ilon 11-29-2024 BUN/CRE 4.3 RATIO Low - [facility] Comment on above: Result Comment: AMENDED REPORT 11/29/24 224 BUN/CRE previously reported as: 4.1 L RATIO Performed By: #### L 505.5000, L500.4050, L501.9100, L100.0100 #### [facility] [address] [place], [address] Emergency Department Summary on 11-29-2024 Emergency Department Summary [facility] Medical Records Department [address] [place] [address] Emergency Department Summary 11/29/24 MR#: [id number] Acct: [id number] Name: RORO VALDIVIA Rep #: [id number] : 1985 39 From: Amilcar Dumont DO [...] on the (more content not included)... Normal [facility] Eosinophil percentageOrdered By: Amilcar Dumont on 11-29-2024 Eosinophils/100 WBC (Bld) 0.5 % 0-5 [facility] Erythrocyte distribution wid th ratioOrdered By: [facility] on [facility]-20[facility] Erythrocyte distribution width (RBC) [Ratio] 14.1 % 11.6-14.6 [facility] Erythrocyte distribution wid th standard deviationOrdered By: [facility]ian Talbert on 11-29-2024 Erythrocyte distribution width (RBC) [Ratio] 45.7 fl High 35.1-43.9 [facility] Glomerular filtration rate ( GFR) estimation/1.73 sq m using serum, plasma, or whole bOrdered By: Amlicarzahra Dumont on 11-29-2024 GFR/1.73 sq M.predicted among non-blacks MDRD (S/P/Bld) [Vol rate/Area] 130 mL/min/{1.73_m2} >60 [facility] Comment on above: mL/min/1.73m2 CKD-EP I Creatinine Equation (2020) Hematocrit Auto (Bld) [Volum e fraction]Ordered By: Amilcar Dumont on 11-29-2024 Hematocrit (Bld) [Volume fraction] 37.0 % Low 40-54 [facility] Hemoglobin measurementOrdere d By: Amilcar Dumont on 11-29-2024 Hemoglobin (Bld) [Mass/Vol] 12.5 g/dL Low 13.0-16.5 [facility] Immature granulocytes/100 WB C Auto (Bld)Ordered By: Amilcar Dumont on 11-29-2024 Immature granulocytes/100 WBC (Bld) 0.200 % 0.0-0.9 [facility] Comment on above: IG% - Immature Granu locytes (promyelocytes, myelocytes and metamyelocytes) > 1% indicates that a LEFT SHIFT is Present. International normalized rat io (INR) calculationOrdered By: Amilcar Dumont on 11-29-2024 INR Coag (Bld) [Relative time] 1.6 {INR} [facility] - Chemistry and C hemistry - challengeOrdered By: Amilcar Dumont on 11-29-2024 AST [Catalytic activity/Vol] 109 U/L High <38 [facility] MCV (mean corpuscular volume ) determinationOrdered By: Amilcar Dumont on 11-29-2024 MCV (RBC) [Entitic vol] 89.4 fL 80-94 [facility] Mean corpuscular hemoglobin (MCH) determinationOrdered By: Amilcar Dumont on 11-29-2024 MCH (RBC) [Entitic mass] 30.2 pg 27.0-32.0 [facility] Mean corpuscular hemoglobin concentration (MCHC) determinationOrdered By: Amilcar Dumont on 11-29-2024 MCHC (RBC) [Mass/Vol] 33.8 g/dL 32-36 [facility] Mean platelet volume determi nationOrdered By: Amilcar Dumont on 11-29-2024 Platelet mean volume (Bld) [Entitic vol] 10.1 fL 6.2-12.0 [facility] Monocyte percentageOrdered B y: Amilcar Dumont on 11-29-2024 Monocytes/100 WBC (Bld) 7.5 % 0-10 [facility] Neutrophil percentageOrdered By: Amilcar Dumont on 11-29-2024 Neutrophils/100 WBC (Bld) 63.3 % 47-70 [facility] No Panel InformationOrdered By: Amilcar Dumont on 11-29-2024 Urine Buprenorphine Qualitative Negative < 200 ng/mL [facility] Urine Oxycodone Screen Negative < 100 ng/mL [facility] Nucleated red blood cell per centageOrdered By: Amilcar Dumont on 11-29-2024 Nucleated RBC/100 WBC (Bld) [Ratio] 0 % 0-5 [facility] Platelet countOrdered By: Edu Dumont on 11-29-2024 Platelets (Bld) [#/Vol] 141 10*3/uL Low 150-450 [facility] Potassium measurement (mass/ volume)Ordered By: Amilcar Dumont on 11-29-2024 Potassium (Unsp spec) [Mass/Vol] 4.7 mmol/L 3.3-5.1 [facility] Prothrombin Time w/INRon INR Coag (PPP) [Relative time] 1.6 {INR} Normal [facility] Comment on above: Performed By: #### L 300.3900 #### [facility] [address] [place], [place], [id number] (377) PT Coag (PPP) [Time] 19.7 s High 11.7-14.9 [facility] Comment on above: Performed By: #### L 300.3900 #### [facility] [address] [place], [place], [id number] Prothrombin timeOrdered By: Amilcar Dumont on 11-29-2024 PT Coag (PPP) [Time] 19.7 s High 11.7-14.9 [facility] Quantitative urine opiates m easurementOrdered By: Amilcar Dumont on 11-29-2024 Opiates Ql (U) Negative < 300 ng/mL [facility] RBC Auto (Bld) [#/Vol]Ordere d By: Amilcar Dumont on 11-29-2024 RBC (Bld) [#/Vol] 4.14 10*6/uL Low 4.6-6.2 [facility] Screening urine fentanyl liza surementOrdered By: Amilcar Dumont on 11-29-2024 fentaNYL Screen Ql (U) Negative <5 ng/mL [facility] Comment on above: CONFIRMATORY TESTING FOR [...] must be ordered separately. Use test mnemonic: [facility] Serum creatinine measurement (mass/volume)Ordered By: Amilcar Dumont on 11-29-2024 Creatinine [Mass/Vol] 0.55 mg/dL Low 0.70-1.20 [facility] Serum globulin measurementOr dered By: Amilcar Dumont on 11-29-2024 Globulin (S) [Mass/Vol] 4.3 g/dL High 2.2-4.2 [facility] Serum glucose measurement (m ass/volume)Ordered By: Amilcar Dumont on 11-29-2024 Glucose [Mass/Vol] 87 mg/dL 70-99 [facility] Serum or plasma alanine martinez otransferase (ALT) measurementOrdered By: Amilcar Dumont on 11-29-2024 ALT [Catalytic activity/Vol] 33 U/L <47 [facility] Serum or plasma albumin valerie urement (mass/volume)Ordered By: Amilcar Talbert on 11-29-2024 Albumin [Mass/Vol] 3.8 g/dL 3.5-5.0 [facility] Serum or plasma albumin/glob ulin mass ratioOrdered By: Amilcar Dumont on 11-29-2024 Albumin/Globulin [Mass ratio] 0.9 {ratio} 0.9-2.4 [facility] Serum or plasma alkaline juliocesar sphatase measurementOrdered By: Amilcar Dumont on 11-29-2024 ALP [Catalytic activity/Vol] 261 U/L High 40-129 [facility] Serum or plasma calcium valerie urement (mass/volume)Ordered By: Amilcar Talbert on 11-29-2024 Calcium [Mass/Vol] 9.7 mg/dL 7.6-11.0 [facility] Serum or plasma ethanol valerie urement (mass/volume)Ordered By: Amilcar Talbert on 11-29-2024 Ethanol [Mass/Vol] 33.5 mg/dL High <10.1 [facility] Comment on above: This test is for med ical purposes only. The legal definition of intoxication varies according to local law. Serum or plasma urea nitroge n measurement (mass/volume)Ordered By: Amilcar Dumont on 11-29-2024 Urea nitrogen [Mass/Vol] 2 mg/dL Low 4-19 [facility] Sodium levelOrdered By: Kenneth Dumont on 11-29-2024 Sodium [Moles/Vol] 138 mmol/L 133-145 [facility] Total proteinOrdered By: Christiano Dumont on 11-29-2024 Protein [Mass/Vol] 8.1 g/dL 5.9-8.4 [facility] Urine Drug Screen (VISTA)on 11-29-2024 AMPHETAMINES Negative Normal <1000 ng/mL [facility] Comment on above: Performed By: #### L 505.5000, L500.4050, L501.9100, L100.0100 #### [facility] [address], [place], [facility] BARBITIURATES Negative Normal < 200 ng/mL [facility] Comment on above: Performed By: #### L 505.5000, L500.4050, L501.9100, L100.0100 #### [facility] [address] [facility] [address] BENZODIAZIPINE Negative Normal < 200 ng/mL [facility] Comment on above: Performed By: #### L 505.5000, L500.4050, L501.9100, L100.0100 #### [facility] [address] [place], [address] BUP Ur Drug Scr Negative Normal < 200 ng/mL [facility] Comment on above: Performed By: #### L 505.5000, L500.4050, L501.9100, L100.0100 #### [facility] [address] [place], [address] COCAINE Negative Normal < 300 ng/mL [facility] Comment on above: Performed By: #### L 505.5000, L500.4050, L501.9100, L100.0100 #### [facility] [address] [place], [address] Fentanyl Negative Normal <5 ng/mL [facility] Comment on above: Result Comment: CONF [...] #### L 505.5000, L500.4050, L501.9100, L100.0100 #### [facility] [address] [place], [address] METHADONE Positive Normal < 300 ng/mL [facility] Comment on above: Result Comment: If c onfirmation testing is needed, a separate order will be required to send out testing to the reference laboratory. Performed By: #### L 505.5000, L500.4050, L501.9100, L100.0100 #### [facility] [address] [place], [address] OPIATES Negative Normal < 300 ng/mL [facility] Comment on above: Performed By: #### L 505.5000, L500.4050, L501.9100, L100.0100 #### [facility] [address] [place], [address] OXYCODONE Negative Normal < 100 ng/mL [facility] Comment on above: Performed By: #### L 505.5000, L500.4050, L501.9100, L100.0100 #### [facility] [address] [place], [address] PCP Negative Normal < 25 ng/mL [facility] Comment on above: Performed By: #### L 505.5000, L500.4050, L501.9100, L100.0100 #### [facility] [address] [place], [address] THC Positive Normal < 50 ng/mL [facility] Comment on above: Result Comment: If c onfirmation testing is needed, a separate order will be required to send out testing to the reference laboratory. Performed By: #### L 505.5000, L500.4050, L501.9100, L100.0100 #### [facility] [address] [place], [address] Urine benzodiazepine levelOr dered By: Amilcar Dumont on 11-29-2024 Benzodiazepines Ql (U) Negative < 200 ng/mL [facility] Urine cocaine levelOrdered B y: Amilcar Dumont on 11-29-2024 Cocaine Ql (U) Negative < 300 ng/mL [facility] Urine fqekp-2-ooyqnyxtqxfebg abinol (THC) measurementOrdered By: Amilcar Talbert on 11-29-2024 Cannabinoids Screen Ql (U) Positive < 50 ng/mL [facility] Comment on above: If confirmation test ing is needed, a separate order will be required to send out testing to the reference laboratory. Urine phencyclidine (PCP) de tectionOrdered By: Amilcar Dumont on 11-29-2024 Phencyclidine Ql (U) Negative < 25 ng/mL [facility] White blood cell (WBC) count Ordered By: Amilcar Dumont on 11-29-2024 WBC (Bld) [#/Vol] 5.8 10*3/uL 4.4-11.0 [facility] 36on 11-24-2024 36 Normal [facility] 36on 11-15-2024 36 I called patient to relay new order information, no answer, left voicemail to let him know new bloodwork ordered, advised to call office if he does have questions. [facility] Progress Noteon 11-15-[address] [facility] Progress Note I saw and evaluated the patient, participating in the erickson portions of the service. I reviewed the resident?s note. I agree with the resident?s findings and plan. Vamshi Moncada, ERVIN [facility] 29on 11-10-2024 29 Addended by: GUILLERMO MERRILL on: 11/10/2024 03:31 PM Modules accepted: Orders [facility] Progress Noteon 11-10-2024 Progress Note Hep A positive. Most likely from previous resolved infection or immunity. But will check to see if recent infection. [facility] 36on 11-09-2024 36 Called back patient and spoke with him. Patient is concerned about abnormal hepatitis A result and would like to know if any additional testing needs done or what to do. Advised will route to provider for review [facility] 36on 11-08-2024 36 Pt called and lvm fo r office frustrated as he keeps missing our calls and can never get a hold of our office back. Thanks [facility] 36 Called patient, no answer, left voicemail relaying results. Provided office number if patient has any questions or concerns. [facility] 36 [facility] 36on 11-07-2024 36 Ok from anesthesia standpoint per wanda l[facility] AFP Tumor Markeron AFP.tumor marker [Mass/Vol] 4.4 ng/mL [facility] - 6.1 ng/mL [facility] Comment on above: This test was performed using the [place] chemiluminescent method. Values obtained from different assay methods cannot be used interchangeably. AFP levels, regardless of value, should not be interpreted as absolute evidence of the presence or absence of disease. Ceruloplasminon 11-07-2024 Ceruloplasmin [Mass/Vol] 23 mg/dL 14 - 30 mg/dL [facility] No Panel Informationon 11-07 [facility] Progress Noteon 11-07-2024 Progress Note INR is slightly increased, but improved since last time. Normal [facility] Progress Note Liver numbers are go ing down. AFP tumor marker is negative. Normal [facility] Comprehensive metabolic 1998 panelon 11-05-2024 Albumin [Mass/Vol] 3.6 g/dL 3.6 - 5.1 g/dL [facility] Albumin/Globulin [Mass ratio] 1 {ratio} [facility] ALP [Catalytic activity/Vol] 147 U/L High 36 - 130 U/L [facility] ALT [Catalytic activity/Vol] 20 U/L 9 - 46 U/L [facility] AST [Catalytic activity/Vol] 58 U/L High 10 - 40 U/L [facility] Bilirubin [Mass/Vol] 1.1 mg/dL 0.2 - 1 .2 mg/dL [facility] Calcium [Mass/Vol] 8.9 mg/dL 8.6 - 10. 3 mg/dL [facility] Chloride [Moles/Vol] 103 mmol/L 98 - 11 0 mmol/L [facility] CO2 [Moles/Vol] 30 mmol/L 20 - 32 mmol/L [facility] Creatinine [Mass/Vol] 0.55 mg/dL Low 0.60 - 1.26 mg/dL [facility] GFR/1.73 sq M.predicted among non-blacks MDRD (S/P/Bld) [Vol rate/Area] 130 mL/min/{1.73_m2} > OR = 60 mL/min/1.73m 2 [facility] Globulin (S) [Mass/Vol] 3.5 g/dL [facility] Glucose [Mass/Vol] 101 mg/dL High 65 - 99 mg/dL [facility] Comment on above: Fasting reference interval For someone without known diabetes, a glucose value between 100 and 125 mg/dL is consistent with prediabetes and should be confirmed with a follow-up test. Potassium [Moles/Vol] 4.5 mmol/L 3.5 - 5.3 mmol/L [facility] Protein [Mass/Vol] 7.1 g/dL 6.1 - 8.1 g/dL [facility] Sodium [Moles/Vol] 139 mmol/L 135 - 146 mmol/L [facility] Urea nitrogen [Mass/Vol] 5 mg/dL Low 7 - 25 mg/dL [facility] Urea nitrogen/Creatinine [Mass ratio] 9 mg/mg [facility] Hepatitis A Antibody, Totalo n 11-05-2024 HAV Ab IA Ql (S) Reactive Abnormal NON-REACTIVE [facility] Comment on above: For additional information, please refer to http://Choisr.Play for Job/faq/AIR518 (This link is being provided for informational/ educational purposes only.) Interpretation and review of laboratory results Abnormal [facility] No Panel Informationon 11-05 Interpretation and review of laboratory results Abnormal [facility] PT Coag (Bld) [Time]on 11-05 INR Coag (PPP) [Relative time] 1.3 {INR} High [facility] Comment on above: Reference Range 0.9 -1.1 Moderate-intensity Warfarin Therapy 2.0-3.0 Higher-intensity Warfarin Therapy 3.0-4.0 PT Coag (PPP) [Time] 13 s High [facility] Comment on above: For additional infor mation, please refer to http://Choisr.Glythera.TopTenREVIEWS/faq/HQQ523 (This link is being provided for informational/ educational purposes only.) 36on 11-01-2024 36 Normal [facility] 36 Normal [facility] 36 Normal [facility] 37on 11-01-2024 37 Normal [facility] Progress Noteon 11-01-2024 Progress Note Normal [facility] 36on 10-28-2024 36 Normal [facility] 36on 10-18-2024 36 Pt has an appointmen t on 11/15 will schedule at that time. Normal [facility] 36on 10-17-2024 36 LOWER PARTIAL, FULL UPPER AND RUBIN REMOVAL APPROVED. PLEASE SCHEDULE. Normal [facility] COMPREHENSIVE METABOLIC PANE Rylan 10-12-2024 Albumin [Mass/Vol] 3.0 g/dL Low 3.5-5.0 [facility] Comment on above: Performed By: #### L AB17 ####Watch Assembler: JUDITH MARKHAM ([id number])[facility] ([facility])[address] [place] [address] [place] ALP [Catalytic activity/Vol] 224 U/L High 40-150 [facility] Comment on above: Performed By: #### L AB17 ####Watch Assembler: JUDITH MARKHAM ([id number])[facility] ([facility])[address] ALT [Catalytic activity/Vol] 34 U/L Normal <40 [facility] Comment on above: Performed By: #### L AB17 ####Watch Assembler: JUDITH MARKHAM ([id number])[facility] ([facility])[address] [place] [address] Anion gap [Moles/Vol] 7 mmol/L Normal 3-13 [facility] Comment on above: Performed By: #### L AB17 ####Watch Assembler: JUDITH MARKHAM ([id number])[facility] ([facility])[address] [place] [address] AST [Catalytic activity/Vol] 122 U/L High <34 [facility] Comment on above: Performed By: #### L AB17 ####Watch Assembler: JUDITH MARKHAM ([id number])[facility] ([facility])[address] [place] [address] Bilirubin [Mass/Vol] 1.7 mg/dL High <1.2 [facility] Comment on above: Performed By: #### L AB17 ####Watch Assembler: JUDITH MARKHAM ([id number])[facility])[address] [place] [address] Calcium [Mass/Vol] 9.2 mg/dL Normal 8.4-10.2 [facility] Comment on above: Performed By: #### L AB17 ####Watch Assembler: JUDITH MARKHAM ([id number])[facility])[address] [place] [address] [place] Chloride [Moles/Vol] 100 mmol/L Normal 98-107 [facility] Comment on above: Performed By: #### L AB17 ####Watch Assembler: JUDITH MARKHAM ([id number])[facility] ([facility])[address] [place] [address] [place] CO2 [Moles/Vol] 28 mmol/L Normal 22-29 [facility] Comment on above: Performed By: #### L AB17 ####Watch Assembler: JUDITH MARKHAM ([id number])[facility] ([facility])[address] [place] [address] Creatinine [Mass/Vol] 0.64 mg/dL Low 0.72-1.25 [facility] Comment on above: Performed By: #### L AB17 ####Watch Assembler: JUDITH MARKHAM ([id number])[facility])[address] [place] [address] GLOMERULAR FILTRATION RATE ML/MIN/1.73 SQ M.PREDICTED >90.0 Normal >60.0 [facility] Comment on above: Result Comment: Calc ulation based on the Chronic Kidney Disease Epidemiology Collaboration (CKD-EPI) equation refit without adjustment for race Performed By: #### L AB17 ####Watch Assembler: JUDITH MARKHAM ([id number])[facility] ([facility])[address] [place] [address] [place] Glucose [Mass/Vol] 77 mg/dL Normal 74-100 [facility] Comment on above: Performed By: #### L AB17 ####Watch Assembler: JUDITH MARKHAM ([id number])[facility])[address] [place] [address] [place] Potassium [Moles/Vol] 4.1 mmol/L Normal 3.5-5.1 [facility] Comment on above: Result Comment: [facility] potassium values may be up to 0.5 mmol/L lower than serum values. Performed By: #### L AB17 ####Watch Assembler: JUDITH MARKHAM ([id number])[facility] ([facility])[address] [place] [address] Protein [Mass/Vol] 7.4 g/dL Normal 6.4-8.3 [facility] Comment on above: Performed By: #### L AB17 ####Watch Assembler: JUDITH MARKHAM ([id number])[facility] ([facility])[address] [place] [address] Sodium [Moles/Vol] 135 mmol/L Low 136-145 [facility] Comment on above: Performed By: #### L AB17 ####Watch Assembler: JUDITH MARKHAM ([id number])[facility] ([facility])[address] [place] [address] Urea nitrogen [Mass/Vol] 5 mg/dL Low 8-21 [facility] Comment on above: Performed By: #### L AB17 ####Watch Assembler: JUDITH KENTONTu ([id number])[facility] ([facility])[address] [place] [address] Progress Noteon 10-12-2024 Progress Note Will review at scheduled follow up. [facility] Progress Noteon 10-04-[address] [facility] 29on 10-03-2024 29 Addended by: GUILLERMO MERRILL on: 10/03/2024 05:01 PM Modules accepted: Orders [facility] 36on 10-03-2024 36 Pt lvm requesting callback. Spoke with Pt he is requesting call to go over Fibroscan results prior to his appt. Pt is very worried about his results. Normal [facility] 36 Patient called and l for office trying to get results of his liver test. Upon review Guillermo had advised patient results will be gone over in November during his OV. Thanks [facility] Progress Noteon 10-03-2024 Progress Note Call Roro. Went over fibroscan. INR ordered. Will also order CMP. Continue with appointment 11/01/2024. Normal [facility] [id number] (BKR QUE ST)on 2024 [facility] ALPHA 1 ANTITRYPSIN 253 mg/dL High 83-199 [facility] Comment on above: Result Comment: Test Performed by [facility],[address] [place] [id number] Merida M.D., Ph.D., Director of [phone], CLIA [id number] Performed By: #### L AB810, [id number], [id number] ####[facility] (AMDBEAKER)[address] [place], [place] REMINGTON (ANTINUCLEAR ANTIBODIES) on 2024 REMINGTON PATTERN Normal [facility] Comment on above: Performed By: #### L AB147, [id number] ####Watch Assembler: JUDITH MARKHAM ([id number])[facility] ([facility])[address] [place] [address] [place] REMINGTON TITER <1:80 Normal <1:80 [facility] Comment on above: Result Comment: PIEDAD Echeverria COMMENTS:TESTED BY INDIRECT IMMUNOFLUORESCENCE ASSAY (IFA) Performed By: #### L AB147, [id number] ####Watch Assembler: JUDITH MARKHAM ([id number])[facility] ([facility])[address] [place] [address] [place] ANTIMITOCHONDRIAL ANTIBODYon 2024 [facility] MITOCHONDRIAL AB SCREEN Negative Normal Negative [facility] Comment on above: Result Comment: Test Performed by Mana Au,[facility],[address] [place] [id number] Merida M.D., Ph.D., Director of [phone], CLIA [id number] Performed By: #### L AB810, [id number], [id number] ####[facility] (AMDBEAKER)[address] [place] CELIAC PANELon 2024 GLIADIN IGA ANTIBODIES 3.1 U/ml Normal <15.0 [facility] Comment on above: Performed By: #### L AB147, [id number] ####Watch Assembler: JUDITH MARKHAM ([id number])[facility])[address] [place] [address] [place] GLIADIN IGG SERUM 0.8 U/ml Normal <15.0 [facility] Comment on above: Result Comment: PIEDAD Echeverria COMMENTS:TTG Interpretive Information:Results of 15 Units/mL or greater = POSITIVEResults Less than 15 Units/mL = NEGATIVEDeam Gliadin Peptide Interpretive Information:Results of 15 Units/mL or greater = POSITIVEResults Less than 15 Units/mL = NEGATIVE Performed By: #### L AB147, [id number] ####Watch Assembler: JUDITH MARKHAM ([id number])[facility])[address] [place] [address] TISSUE TRANSGLUTAMINASE, IGA <0.5 Normal <15.0 [facility] Comment on above: Performed By: #### L AB147, [id number] ####Watch Assembler: JUDITH MARKHAM ([id number])[facility])[address] [place] [address] TISSUE TRANSGLUTAMINASE, IGG 1.1 U/mL Normal <15.0 [facility] Comment on above: Performed By: #### L AB147, [id number] ####Watch Assembler: JUDITH MARKHAM ([id number])[facility])[address] [place] [address] FERRITINon 2024 Ferritin [Mass/Vol] 108 ng/mL Normal 22-275 [facility] Comment on above: Result Comment: PIEDAD Echeverria COMMENTS:Ferritin levels below 10 ng/mL have been reported as indicative of iron deficiency anemia. Performed By: #### L AB68 ####Watch Assembler: JUDITH MARKHAM ([id number])[address] Ferritin [Mass/Vol]on 2024 Interpretation and review of laboratory results Normal [facility] Ferritin levels belo w 10 ng/mL have been reported as indicative of iron deficiency anemia. [facility] HBV surface Ab IA Qnon 09-30 Interpretation: <8.0 Non-Reactive 8.0-11.9 Equivocal >= 12.0 Ab Detected Note: If an equivocal result is interpreted, an antibody status is unable to be determined. Collect new specimen if clinically indicated. [facility] HBV surface Ag IA Qlon 09-30 Interpretation and review of laboratory results Normal [facility] HCV Ab IA Qlon 2024 Interpretation and review of laboratory results Normal [facility] HEPATITIS B CORE ANTIBODY, T OTAL - BKR [facility]on 2024 [facility] HEPATITIS B CORE AB TOTAL Non-Reactive Normal Nonreactive [facility] Comment on above: Result Comment: Test Performed by Mana Au,Angely [facility] [facility],[address] [place] [id number] Merida M.D., Ph.D., Director of [phone], [facility] [id number] Performed By: #### L [id number] ####[facility] (AMDBEAKER)[address] [place] [address] [place] HEPATITIS B SURFACE ANTIBODY on 2024 HEPATITIS B VIRUS SURFACE AB <8.0 Normal [facility] Comment on above: Result Comment: ORDE R COMMENTS:Interpretation:<8.0 Non-Reactive8.0-11.9 Equivocal>= 12.0 Ab DetectedNote: If an equivocal result is interpreted, an antibody status is unable to be determined. Collect new specimen if clinically indicated. Performed By: #### L [id number], [id number], [id number] ####Watch Assembler: JUDITH MARKHAM ([id number])[address] HEPATITIS B SURFACE ANTIGENo n 2024 HEPATITIS B VIRUS SURFACE AG Not detected Normal Not Detected [facility] Comment on above: Performed By: #### L AB868, [id number], [id number] ####Watch Assembler: JUDITH MARKHAM ([id number])[facility])[address] [place] [address] HEPATITIS C ANTIBODYon 09-30 HCV Ab IA Ql Not detected Normal Not Detected [facility] Comment on above: Result Comment: Lynda ents with DETECTED Hepatitis C Ab results should have a new specimen submitted for supplemental testing with a Hepatitis C Quantitative RNA assay (viral load), if clinically indicated. Performed By: #### L AB868, [id number], [id number] ####Watch Assembler: JUDITH MARKHAM ([id number])[facility])[address] [place] [address] LIVER-KIDNEY MICROSOME 1 ABo n 2024 LIVER-KID MICROSOME-1 AB, IGG BY BERENICE 2.2 U Normal 0.0-24.9 [facility] Comment on above: Result Comment: [...] presence of autoimmune hepatitis, type 2.Performed By: [facility] [place], [place] [address]Dmehwoivpg Director: Guillermo Burroughs MD, PhDCLIA Number: [id number] Performed By: #### L [id number] ####[facility] ([facility])[address] [place] [address] [place] Laboratory - Chemistry and C hemistry - challengeon 2024 Ferritin [Mass/Vol] 108 ng/mL 22 - 275 ng/mL [facility] Laboratory - Coagulationon 0 2024 PT Coag (Bld) [Time] 14.6 s High 9.0 - 12.0 s [facility] - Microbiology an d Antimicrobial susceptibilityon 2024 HBV surface Ab IA Qn mIU/mL [facility] HBV surface Ag IA Ql Not detected Not Detected [facility] HCV Ab IA Ql Not detected Not Detected [facility] Comment on above: Patients with DETECT ED Hepatitis C Ab results should have a new specimen submitted for supplemental testing with a Hepatitis C Quantitative RNA assay (viral load), if clinically indicated. No Panel Informationon 09-30 [facility] Considering the patient's history of alcohol and [...] flowing out of your liver (biliary obstruction) [facility] [employer] Table formatting fro m the original result was not included. Imaging Result: [facility] Infectious Disease Patient: Gerson De La Fuente [...] procedure well. Results: Median=75 kPa IQR/med=0 % ZEV=626 dB/m Indu Mota RN, 2024 1:24 PM Diagnosis/Problems: Diagnosis Plan 1. Elevated liver enzymes Fibroscan 2 hx of alcohol abuse [facility] [employer] PROTHROMBIN TIMEon INR Coag (PPP) [Relative time] 1.4 {INR} High 0.9-1.1 [facility] [employer] [facility] Comment on above: Result Comment: Mason [...] Myocardial Infarction Performed By: #### L [id number] ####Watch Assembler: JUDITH MARKHAM ([id number])[facility] ([facility])[address] [place] [address] PT Coag (PPP) [Time] 14.6 s High 9.0-12.0 [facility] Comment on above: Performed By: #### L AB320 ####Watch Assembler: JUDITH MARKHAM ([id number])[facility] ([facility])[address] [place] [address] PT Coag (Bld) [Time]on 09-30 INR Coag (PPP) [Relative time] 1.4 {INR} High 0.9 - 1.1 [facility] Comment on above: Recommended Anticoag ulant Therapy: [...] Interpretation and review of laboratory results Abnormal [facility] Progress Noteon 2024 Progress Note Will review Fibrosca n with Roro 11/15/2024. Recommend to complete blood work as ordered by Eric Hartley. Normal [facility] Progress Note Normal [facility] SMOOTH MUSCLE ANTIBODY WITH REFLEX (BKR [facility])on 2024 [facility] SMOOTH MUSCLE AB SCREEN Negative Normal NEGATIVE [facility] Comment on above: Result Comment: Test performed by [facility] [address] [place] [address] [employer] Director: Ankita Oscar MD,PHD,MBATest Reported by Mana Au,[facility],[address] [place], [place] [address]Kmxqqrhdavonte Merida M.D., Ph.D., Director of [phone], ABDOULAYE [id number] Performed By: #### L AB810, [id number], [id number] ####[facility] (AMDBEAKER)[address] [place] [facility] 08-31-2024 36 Pt has appointment o n 09/07 will schedule at that time. [facility] 08-29-2024 36 UPPER DENTURE APPROV ED. PLEASE SCHEDULE [facility] Progress Noteon 08-24-[address] [facility] 08-23-2024 29 Addended by: VANCE LIZAMA on: 2024 02:44 PM Modules accepted: Orders [facility] 29 Addended by: VANCE LIZAMA on: 2024 02:43 PM Modules accepted: Orders [facility] 08-23-2024 37 --blood work to be completed order given --fibroscan faxing order to ID dept --complete alcohol abstinence is recommended --diet recommendations printed for review --follow up in [address] [facility] Progress Noteon 08-23-[address] [facility] 08-22-2024 36 Patient called back in, sooner opening no longer available. Rescheduled for 11/15 at 10:30 and placed on cancellation list. Patient stated this appointment is too far out, will call with next opening we get. [facility] 36 Lmtcb to get 10/05 appointment rescheduled due to the provider not being in the office. [facility] 08-15-[address] [facility] 08-09-[address] [facility] 08-05-2024 36 Patient prescribed medication by Last appt 03/30/[address] [facility] 08-04-2024 36 Last visit 03/30/24 Needs scheduled with new PGY3 [facility] 08-01-2024 36 Patient called offic e to r/s OV. Patient was offered next soonest OV, 10/05. Patient agreed, placed on cancellation list for sooner appointment. Thanks [facility] 07-25-2024 36 Called and lvm for patient to contact office to r/s OV due to provider OOO. Sent Arche[employer] message as well for patient to respond to. Thanks [facility] BASIC METABOLIC PANELon 06-10 Anion gap [Moles/Vol] 12 mmol/L Normal 3-13 [facility] Comment on above: Performed By: #### L AB15, [id number] ####Watch Assembler: SHENA GUERIN ([id number])[facility]ON[facility]yler [place] ([facility])[address] Calcium [Mass/Vol] 9.9 mg/dL Normal 8.4-10.2 [facility] Comment on above: Performed By: #### L AB15, [id number] ####Watch Assembler: SHENA GUERIN ([id number])[facility] [place] ([facility])[address] Chloride [Moles/Vol] 102 mmol/L Normal 98-107 [facility] Comment on above: Performed By: #### L AB15, [id number] ####Watch Assembler: SHENA GUERIN ([id number])[facility] [place] ([facility])[address] CO2 [Moles/Vol] 25 mmol/L Normal 22-29 [facility] Comment on above: Performed By: #### L AB15, [id number] ####Watch Assembler: SHENA GUERIN ([id number])[facility] [place] ([facility])[address] Creatinine [Mass/Vol] 0.74 mg/dL Normal 0.72-1.25 [facility] Comment on above: Performed By: #### L AB15, [id number] ####Watch Assembler: SHENA GUERIN ([id number])[facility] ([facility])[address] GLOMERULAR FILTRATION RATE ML/MIN/1.73 SQ M.PREDICTED >90.0 Normal >60.0 [facility] Comment on above: Result Comment: Calc ulation based on the Chronic Kidney Disease Epidemiology Collaboration (CKD-EPI) equation refit without adjustment for race Performed By: #### L AB15, [id number] ####Watch Assembler: SHENA GUERIN ([id number])[facility] ([facility])[address] Glucose [Mass/Vol] 109 mg/dL High 74-100 [facility] Comment on above: Performed By: #### L AB15, [id number] ####Watch Assembler: SHENA GUERIN ([id number])[facility] ([facility])[address] Potassium [Moles/Vol] 4.0 mmol/L Normal 3.5-5.1 [facility] Comment on above: Result Comment: [facility] potassium values may be up to 0.5 mmol/L lower than serum values. Performed By: #### L AB15, [id number] ####Watch Assembler: SHENA GUERIN ([id number])[facility] ([facility])[address] Sodium [Moles/Vol] 139 mmol/L Normal 136-145 [facility] Comment on above: Performed By: #### L AB15, [id number] ####Watch Assembler: SHENA GUERIN ([id number])[facility] ([facility])[address] [place] [address] [place] Urea nitrogen [Mass/Vol] 6 mg/dL Low 8-21 [facility] Comment on above: Performed By: #### L AB15, [id number] ####Watch Assembler: SHENA GUERIN ([id number])[facility] ([facility])[address] [place] [address] [place] C-REACTIVE PROTEINon 025 CRP [Mass/Vol] 45.5 mg/L High <5.0 [facility] Comment on above: Performed By: #### L AB15, [id number] ####Watch Assembler: SHENA GUERIN ([id number])[facility] ([facility])[address] [place] [address] CBC WITH AUTO DIFFERENTIALon 07-02-2024 Basophils (Bld) [#/Vol] 0.1 10*3/uL Normal 0.0-0.2 [facility] Comment on above: Performed By: #### L AB322, [id number] ####Watch Assembler: SHENA GUERIN ([id number])[facility] [place] ([facility])[address] [place] [address] Basophils/100 WBC (Bld) 0.7 % Normal 0.0-2.0 [facility] Comment on above: Performed By: #### L AB322, [id number] ####Watch Assembler: SHENA GUERIN ([id number])[facility] BARBNEW [facility]EX[facility] ([facility])[address] [place] [address] Eosinophils (Bld) [#/Vol] 0.4 10*3/uL Normal 0.0-0.5 [facility] [facility] Comment on above: Performed By: #### L [id number], [id number] ####Watch Assembler: SHENA GUERIN ([phone])[facility] (SBAB)[address] [place] [address] Eosinophils/100 WBC (Bld) 6.0 % Normal 0.0-6.0 [facility] Comment on above: Performed By: #### L [id number], [id number] ####Watch Assembler: SHENA GUERIN ([id number])[facility] ([facility])[address] [place] [address] Erythrocyte distribution width (RBC) [Ratio] 13.3 % Normal 11.5-15.0 [facility] Comment on above: Performed By: #### L AB322, [id number] ####Watch Assembler: SHENA GUERIN ([id number])[facility] (SBHLAB)[address] Hematocrit (Bld) [Volume fraction] 39.6 % Low 40.0-52.0 [facility] Comment on above: Performed By: #### L [id number], [id number] ####Watch Assembler: SHENA GUERIN ([id number])[facility] (HLAB)[address] Hemoglobin (Bld) [Mass/Vol] 13.2 g/dL Normal 13.0-18.0 [facility] Comment on above: Performed By: #### L [id number], [id number] ####Watch Assembler: SHENA GUERIN ([id number])[facility] ([facility] IMMATURE GRANS % 0.3 % Normal 0.0-2.0 [facility] Comment on above: Performed By: #### L [id number], [id number] ####Watch Assembler: SHENA GUERIN ([id number])[facility] ([facility] IMMATURE GRANS ABSOLUTE 0.0 10*3/uL Normal <0.1 [facility] Comment on above: Performed By: #### L [id number], [id number] ####Watch Assembler: SHENA GUERIN ([id number])[facility] ([facility])[address] Lymphocytes (Bld) [#/Vol] 2.4 10*3/uL Normal 1.0-4.3 [facility] Comment on above: Performed By: #### L AB322, [id number] ####Watch Assembler: SHENA GUERIN ([id number])[facility] ([facility])[address] [place] [address] [place] Lymphocytes/100 WBC (Bld) 34.8 % Normal 15.0-45.0 [facility] Comment on above: Performed By: #### L [id number], [id number] ####Watch Assembler: SHENA GUERIN ([id number])[facility] (SBHLAB)[address] MCH (RBC) [Entitic mass] 30.3 pg Normal 26.0-34.0 [facility] Comment on above: Performed By: #### L AB322, [id number] ####Watch Assembler: SHENA GUERIN ([id number])[facility] (SBHLAB)[address] MCHC 33.3 % Normal 30.5-36.0 [facility] Comment on above: Performed By: #### L [id number], [id number] ####Watch Assembler: SHENA GUERIN ([phone])[facility]ON[facility]yler NEUMANNN (SBHLAB)[address] MCV (RBC) [Entitic vol] 91.0 fL Normal 77.0-99.0 [facility] Comment on above: Performed By: #### L [id number], [id number] ####Watch Assembler: SHENA GUERIN ([id number])[facility]ON[facility]yler [place] (SBHLAB)[address] Monocytes (Bld) [#/Vol] 0.6 10*3/uL Normal 0.0-0.9 [facility] Comment on above: Performed By: #### L [id number], [id number] ####Watch Assembler: SHENA GUERIN ([id number])[facility] [place] (SBHLAB)[address] [place] [address] [place] Monocytes/100 WBC (Bld) 8.5 % Normal 5.0-13.0 [facility] Comment on above: Performed By: #### L [id number], [id number] ####Watch Assembler: SHENA GUERIN ([phone])[facility] [place] (SBHLAB)[address] NEUTROPHILS ABSOLUTE 3.4 10*3/uL Normal 1.8-7.5 [facility] Comment on above: Performed By: #### L [id number], [id number] ####Watch Assembler: SHENA GUERIN ([id number])[facility] (SBHLAB)[address] Neutrophils/100 WBC (Bld) 49.7 % Normal 38.0-82.0 [facility] Comment on above: Performed By: #### L [id number], [id number] ####Watch Assembler: SHENA GUERIN ([id number])[facility] [place] (SBHLAB)[address] NRBC 0.0 /100 WBCs Normal 0.0-2.0 [facility] Comment on above: Performed By: #### L [id number], [id number] ####Watch Assembler: SHENA GUERIN ([id number])[facility] [place] (SBHLAB)[address] Platelet mean volume (Bld) [Entitic vol] 10.0 fL Normal 9.0-12.7 [facility] Comment on above: Performed By: #### L AB322, [id number] ####Watch Assembler: SHENA GUERIN ([id number])[facility] [place] (SBHLAB)[address] Platelets (Bld) [#/Vol] 295 10*3/uL Normal 140-440 [facility] Comment on above: Performed By: #### L AB322, [id number] ####Watch Assembler: SHENA GUERIN ([id number])[facility] [place] (SBHLAB)[address] [place] [address] [place] RBC (Bld) [#/Vol] 4.35 10*6/uL Low 4.40-5.90 [facility] Comment on above: Performed By: #### L AB322, [id number] ####Watch Assembler: SHENA GUERIN ([id number])[facility] [place] (SBHLAB)[address] [place] [address] [place] WBC (Bld) [#/Vol] 6.8 10*3/uL Normal 3.6-10.7 [facility] Comment on above: Performed By: #### L [id number], [id number] ####Watch Assembler: SHENA GUERIN ([phone])[facility] [place] (SBHLAB)[address] CERVICAL SPINE WO IV CONT RASTon 07-02-2024 CT CERVICAL SPINE WO IV CONTRAST Normal [facility] CT HEAD WO IV CONTRASTon CT HEAD WO IV CONTRAST Normal [facility] ED Nursing Noteon 07-02-2024 ED Nursing Note electronic systems technician called to obtain ETA on pt imaging. Per MRI they will be getting pt shortly. Normal [facility] ED Nursing Note Patient provided wit h a bag and a cup for his partials prior to MRI scan. Normal [facility] ED Provider Noteon ED Provider Note Normal [facility] SEDIMENTATION RATE, AUTOMATE Don 07-02-2024 SEDIMENTATION RATE, ERYTHROCYTE 50 mm/hr High 0-10 [facility] Comment on above: Performed By: #### L [id number], [id number] ####Watch Assembler: SHENA GUERIN ([id number])[facility] (SBHLAB)[address] BASIC METABOLIC PANELon 06-09 Anion gap [Moles/Vol] 15 mmol/L High 3-13 [facility] Comment on above: Performed By: #### L AB15, LAB99 ####Watch Assembler: SHENA GUERIN ([id number])[facility] [place] (SBHLAB)[address] Calcium [Mass/Vol] 9.0 mg/dL Normal 8.4-10.2 [facility] Comment on above: Performed By: #### L AB15, LAB99 ####Watch Assembler: SHENA GUERIN ([id number])[facility] ([facility])[address] Chloride [Moles/Vol] 107 mmol/L Normal 98-107 [facility] Comment on above: Performed By: #### L AB15, LAB99 ####Watch Assembler: SHENA GUERIN ([id number])[facility] (SBHLAB)[address] CO2 [Moles/Vol] 19 mmol/L Low 22-29 [facility] Comment on above: Performed By: #### L AB15, LAB99 ####Watch Assembler: SHENA GUERIN ([id number])[facility] (SBHLAB)[address] Creatinine [Mass/Vol] 0.61 mg/dL Low 0.72-1.25 [facility] Comment on above: Performed By: #### L AB15, LAB99 ####Watch Assembler: SHENA GUERIN ([id number])[facility] (SBHLAB)[address] GLOMERULAR FILTRATION RATE ML/MIN/1.73 SQ M.PREDICTED >90.0 Normal >60.0 [facility] Comment on above: Result Comment: Calc ulation based on the Chronic Kidney Disease Epidemiology Collaboration (CKD-EPI) equation refit without adjustment for race Performed By: #### L AB15, LAB99 ####Watch Assembler: SHENA GUERIN ([id number])[facility] (SBHLAB)[address] Glucose [Mass/Vol] 125 mg/dL High 74-100 [facility] Comment on above: Performed By: #### L AB15, LAB99 ####Watch Assembler: SHENA GUERIN ([id number])[facility] (SBHLAB)[address] [place] [address] [place] Potassium [Moles/Vol] 3.8 mmol/L Normal 3.5-5.1 [facility] Comment on above: Result Comment: [facility] potassium values may be up to 0.5 mmol/L lower than serum values. Performed By: #### L AB15, LAB99 ####Watch Assembler: SHENA GUERIN ([phone])[facility]yler [facility]NEW [facility] (SBHLAB)[address] Sodium [Moles/Vol] 141 mmol/L Normal 136-145 [facility] Comment on above: Performed By: #### L AB15, LAB99 ####Watch Assembler: SHENA GUERIN ([id number])[facility] [place] (SBHLAB)[address] Urea nitrogen [Mass/Vol] 4 mg/dL Low 8-21 [facility] Comment on above: Performed By: #### L AB15, LAB99 ####Watch Assembler: SHENA GUERIN ([id number])[facility] (SBHLAB)[address] Basic metabolic 1998 panelon 06-26-2024 Anion gap [Moles/Vol] 15 mmol/L High 3 - 13 mmol/L [facility] [employer] Calcium [Mass/Vol] 9 mg/dL 8.4 - 10. 2 mg/dL [facility] [employer] Chloride [Moles/Vol] 107 mmol/L 98 - 10 7 mmol/L [facility] [employer] CO2 [Moles/Vol] 19 mmol/L Low 22 - 29 mmol/L [facility] [employer] Creatinine [Mass/Vol] 0.61 mg/dL Low 0.72 - 1.25 mg/dL [facility] GFR/1.73 sq M.predicted (S/P/Bld) [Vol rate/Area] - PINF [facility] Comment on above: Calculation based on the Chronic Kidney Disease Epidemiology Collaboration (CKD-EPI) equation refit without adjustment for race Glucose [Mass/Vol] 125 mg/dL High 74 - 100 mg/dL [facility] Potassium [Moles/Vol] 3.8 mmol/L 3.5 - 5.1 mmol/L [facility] Comment on above: Plasma potassium víctor ues may be up to 0.5 mmol/L lower than serum values. Sodium [Moles/Vol] 141 mmol/L 136 - 145 mmol/L [facility] Urea nitrogen [Mass/Vol] 4 mg/dL Low 8 - 21 mg/dL [facility] CBC (HEMOGRAM)on 06-26-2024 Erythrocyte distribution width (RBC) [Ratio] 13.7 % Normal 11.5-15.0 [facility] Comment on above: Performed By: #### L [id number] ####Watch Assembler: SHENA GUERIN ([phone])[facility] [place] (SBAB)[address] [place] [address] Hematocrit (Bld) [Volume fraction] 42.0 % Normal 40.0-52.0 [facility] Comment on above: Performed By: #### L AB294 ####Watch Assembler: SHENA GUERIN ([id number])[facility] (SBAB)[address] [place] [address] Hemoglobin (Bld) [Mass/Vol] 14.2 g/dL Normal 13.0-18.0 [facility] Comment on above: Performed By: #### L [id number] ####Watch Assembler: SHENA GUERIN ([id number])[facility] ([facility] [place] [address] MCH (RBC) [Entitic mass] 30.4 pg Normal 26.0-34.0 [facility] Comment on above: Performed By: #### L AB294 ####Watch Assembler: SHENA GUERIN ([id number])[facility] ([facility])[address] [place] [address] MCHC 33.8 % Normal 30.5-36.0 [facility] Comment on above: Performed By: #### L [id number] ####Watch Assembler: SHENA GUERIN ([id number])[facility] (SBAB)[address] [place] [address] MCV (RBC) [Entitic vol] 89.9 fL Normal 77.0-99.0 [facility] Comment on above: Performed By: #### L AB294 ####Watch Assembler: SHENA GUERIN ([id number])[facility] (SBAB)[address] [place] [address] Platelet mean volume (Bld) [Entitic vol] 9.9 fL Normal 9.0-12.7 [facility] Comment on above: Performed By: #### L AB294 ####Watch Assembler: SHENA GUERIN ([id number])[facility] (SBHLAB)[address] Platelets (Bld) [#/Vol] 384 10*3/uL Normal 140-440 [facility] Comment on above: Performed By: #### L AB294 ####Watch Assembler: SHENA GUERIN ([id number])[facility] (SBHLAB)[address] RBC (Bld) [#/Vol] 4.67 10*6/uL Normal 4.40-5.90 [facility] Comment on above: Performed By: #### L AB294 ####Watch Assembler: SHENA GUERIN ([id number])[facility] (SBHLAB)[address] WBC (Bld) [#/Vol] 9.2 10*3/uL Normal 3.6-10.7 [facility] Comment on above: Performed By: #### L [id number] ####Watch Assembler: SHENA GUERIN ([id number])[facility] ([facility])[address] [place] [address] CBC panel Auto (Bld)on 06-26 Erythrocyte distribution width (RBC) [Ratio] 13.7 % 11.5 - 15.0 % [facility] Hematocrit (Bld) [Volume fraction] 42 % 40.0 - 52.0 % [facility] Hemoglobin (Bld) [Mass/Vol] 14.2 g/dL 13.0 - 18.0 g/dL [facility] Interpretation and review of laboratory results Normal [facility] MCH (RBC) [Entitic mass] 30.4 pg 26.0 - 34.0 pg [facility] MCHC (RBC) [Mass/Vol] 33.8 % 30.5 - 36.0 % [facility] MCV (RBC) [Entitic vol] 89.9 fL 77.0 - 99.0 fL [facility] Platelet mean volume (Bld) [Entitic vol] 9.9 fL 9.0 - 12.7 fL [facility] Platelets (Bld) [#/Vol] 384 10*3/uL 140 - 440 10*3/uL [facility] RBC (Bld) [#/Vol] 4.67 10*6/uL 4.40 - 5.9 0 10*6/uL [facility] WBC (Bld) [#/Vol] 9.2 10*3/uL 3.6 - 10.7 10*3/uL [facility] CT ABDOMEN PELVIS W CONTRAST on 06-26-2024 CT ABDOMEN PELVIS W CONTRAST Normal [facility] CT Abdomen and Pelvis W cont rast Ellen 06-26-2024 Suspicious for acute pancreatitis. Report Dictated on Electronically Signed By: Steve Jacinto MD Electronically Signed Date/Time: 06/26/2024 9:50 PM EDT [facility] Patient Name: RORO CLAIRE : [...] bladder. No definite adenopathy. No spinal compression. [facility] Steve Jacinto MD - 06/26/2024 Patient [...] Electronically Signed Date/Time: 06/26/2024 9:50 PM EDT [facility] Radiology Study observation (narrative) [facility] CT Abdomen and Pelvis W cont rast IVOrdered By: Steve Jacinto on 06-26-2024 [facility] Work Phone: ED Provider Noteon ED Provider Note Normal [facility] LIPASEon 06-26-2024 Lipase [Catalytic activity/Vol] 75 U/L High <55 [facility] Comment on above: Performed By: #### L AB15, LAB99 ####Watch Assembler: SHENA GUERIN ([id number])[facility] [place] [facility] [place] [address] Laboratory - Chemistry and C hemistry - challengeon 06-26-2024 Lipase [Catalytic activity/Vol] 75 U/L High NINF - 55 U/L [facility] No Panel Informationon 06-26 Interpretation and review of laboratory results Abnormal [facility] ECG 12-LEADon 06-20-2024 ECG 12-LEAD IMPRESSION: Sinus rhythm LVH by voltage No significant change from previous ekg Electronically Signed On 06-20-2024 05:27:52 EDT by Mattie Durbin Normal [facility] No Panel Informationon 06-20 P [place] 40 degrees [facility] W[place] Interval 162 ms [facility] QRS [place] -2 degrees [facility] QRSD Interval 92 ms [facility] QT Interval 406 ms [facility] QTC Interval 469 ms [facility] T Wave [place] 8 degrees [facility] Sinus rhythm LVH by voltage No significant change from previous ekg Electronically Signed On 06-20-2024 05:27:52 EDT by Mattie Felix DO - 06/20/2024 IMPRESSION: Sinus rhythm LVH by voltage No significant change from previous ekg Electronically Signed On 06-20-2024 05:27:52 EDT by Mattie Durbin [facility] Vital signson 06-20-2024 Heart rate 80 /min bpm [facility] CBC W Auto Differential pane l (Bld)on 06-19-2024 Basophils (Bld) [#/Vol] 0.1 10*3/uL 0.0 - 0.2 10*3/uL [facility] Basophils/100 WBC (Bld) 0.5 % 0.0 - 2.0 % [facility] Eosinophils (Bld) [#/Vol] 0.2 10*3/uL 0.0 - 0.5 10*3/uL [facility] Eosinophils/100 WBC (Bld) 1.5 % 0.0 - 6.0 % [facility] Erythrocyte distribution width (RBC) [Ratio] 14 % 11.5 - 15.0 % [facility] Hematocrit (Bld) [Volume fraction] 39.9 % Low 40.0 - 52.0 % [facility] Hemoglobin (Bld) [Mass/Vol] 13.1 g/dL 13.0 - 18.0 g/dL [facility] Immature granulocytes (Bld) [#/Vol] 0 10*3/uL NINF - 0.1 10*3/uL [facility] Immature granulocytes/100 WBC (Bld) 0.4 % 0.0 - 2.0 % [facility] Interpretation and review of laboratory results Abnormal [facility] Lymphocytes (Bld) [#/Vol] 1.6 10*3/uL 1.0 - 4.3 10*3/uL [facility] Lymphocytes/100 WBC (Bld) 16.5 % 15.0 - 45.0 % [facility] MCH (RBC) [Entitic mass] 30.1 pg 26.0 - 34.0 pg [facility] MCHC (RBC) [Mass/Vol] 32.8 % 30.5 - 36.0 % [facility] MCV (RBC) [Entitic vol] 91.7 fL 77.0 - 99.0 fL [facility] Monocytes (Bld) [#/Vol] 0.8 10*3/uL 0.0 - 0.9 10*3/uL [facility] Monocytes/100 WBC (Bld) 8.3 % 5.0 - 13.0 % [facility] Neutrophils (Bld) [#/Vol] 7.1 10*3/uL 1.8 - 7.5 10*3/uL [facility] Neutrophils/100 WBC (Bld) 72.8 % 38.0 - 82.0 % [facility] Nucleated RBC/100 WBC (Bld) [Ratio] 0 % [facility] Platelet mean volume (Bld) [Entitic vol] 10.4 fL 9.0 - 12.7 fL [facility] Platelets (Bld) [#/Vol] 260 10*3/uL 140 - 440 10*3/uL [facility] RBC (Bld) [#/Vol] 4.35 10*6/uL Low 4.40 - 5.9 0 10*6/uL [facility] WBC (Bld) [#/Vol] 9.8 10*3/uL 3.6 - 10.7 10*3/uL [facility] CBC WITH AUTO DIFFERENTIALon 06-19-2024 Basophils (Bld) [#/Vol] 0.1 10*3/uL Normal 0.0-0.2 [facility] Comment on above: Performed By: #### L [id number] ####Watch Assembler: SHENA GUERIN ([id number])[facility] [place] (SBAB)[address] [place] [address] Basophils/100 WBC (Bld) 0.5 % Normal 0.0-2.0 [facility] Comment on above: Performed By: #### L [id number] ####Watch Assembler: SHENA GUERIN ([id number])[facility] (SBHLAB)[address] [place] [address] Eosinophils (Bld) [#/Vol] 0.2 10*3/uL Normal 0.0-0.5 [facility] Comment on above: Performed By: #### L [id number] ####Watch Assembler: SHENA GUERIN ([phone])[facility]BNEW [facility]EX[facility] AT L[facility] VEGASN (SBHLAB)[address] Eosinophils/100 WBC (Bld) 1.5 % Normal 0.0-6.0 [facility] Comment on above: Performed By: #### L [id number] ####Watch Assembler: SHENA CHAMPAGNEBETTY ([id number])[facility] ([facility])[address] [place] [address] Erythrocyte distribution width (RBC) [Ratio] 14.0 % Normal 11.5-15.0 [facility] Comment on above: Performed By: #### L [id number] ####Watch Assembler: SHENA CHAMPAGNEBETTY ([id number])[facility] ([facility])[address] [place] [address] Hematocrit (Bld) [Volume fraction] 39.9 % Low 40.0-52.0 [facility] Comment on above: Performed By: #### L [id number] ####Watch Assembler: SHENA GUERIN ([id number])[facility] ([facility])[address] [place] [address] Hemoglobin (Bld) [Mass/Vol] 13.1 g/dL Normal 13.0-18.0 [facility] Comment on above: Performed By: #### L [id number] ####Watch Assembler: SHENA GUERIN ([id number])[facility] [place] (SBAB)[address] [place] [address] IMMATURE GRANS % 0.4 % Normal 0.0-2.0 [facility] Comment on above: Performed By: #### L [id number] ####Watch Assembler: SHENA GUERIN ([id number])[facility]ONKyler ENGELNEW MEXICO BE[facility]IOR[facility] HEALTH INSTITUTE AT LAS VEGASTu (SBHLAB)[address] IMMATURE GRANS ABSOLUTE 0.0 10*3/uL Normal <0.1 [facility] Comment on above: Performed By: #### L [id number] ####Watch Assembler: SHENA GUERIN ([phone])[facility]ONKyler [place] (SBHLAB)[address] Lymphocytes (Bld) [#/Vol] 1.6 10*3/uL Normal 1.0-4.3 [facility] Comment on above: Performed By: #### L [id number] ####Watch Assembler: SHENA GUERIN ([id number])[facility] [place] (SBHLAB)[address] [place] [address] Lymphocytes/100 WBC (Bld) 16.5 % Normal 15.0-45.0 [facility] Comment on above: Performed By: #### L [id number] ####Watch Assembler: SHENA GUERIN ([id number])[facility]ON[facility] [place] (SBHLAB)[address] MCH (RBC) [Entitic mass] 30.1 pg Normal 26.0-34.0 [facility] Comment on above: Performed By: #### L [id number] ####Watch Assembler: SHENA GUERIN ([id number])[facility] (SBHLAB)[address] MCHC 32.8 % Normal 30.5-36.0 [facility] Comment on above: Performed By: #### L [id number] ####Watch Assembler: SHENA GUERIN ([id number])[facility]ON[facility] [place] (SBHLAB)[address] MCV (RBC) [Entitic vol] 91.7 fL Normal 77.0-99.0 [facility] Comment on above: Performed By: #### L [id number] ####Watch Assembler: SHENA [id number])[facility] (SBHLAB)[address] Monocytes (Bld) [#/Vol] 0.8 10*3/uL Normal 0.0-0.9 [facility] Comment on above: Performed By: #### L [id number] ####Watch Assembler: SHENA GUERIN ([id number])[facility] (SBHLAB)[address] Monocytes/100 WBC (Bld) 8.3 % Normal 5.0-13.0 [facility] Comment on above: Performed By: #### L [id number] ####Watch Assembler: SHENA GUERIN ([id number])[facility] (SBHLAB)[address] NEUTROPHILS ABSOLUTE 7.1 10*3/uL Normal 1.8-7.5 [facility] Comment on above: Performed By: #### L [id number] ####Watch Assembler: SHENA GUERIN ([id number])[facility] [place] (SBHLAB)[address] Neutrophils/100 WBC (Bld) 72.8 % Normal 38.0-82.0 [facility] Comment on above: Performed By: #### L [id number] ####Watch Assembler: SHENA GUERIN ([id number])[facility] [place] ([facility])[address] NRBC 0.0 /100 WBCs Normal 0.0-2.0 [facility] Comment on above: Performed By: #### L [id number] ####Watch Assembler: SHENA GUERIN ([id number])[facility] [place] ([facility])[address] Platelet mean volume (Bld) [Entitic vol] 10.4 fL Normal 9.0-12.7 [facility] Comment on above: Performed By: #### L [id number] ####Watch Assembler: SHENA GUERIN ([id number])[facility] [facility] [place] (SBHLAB)[address] Platelets (Bld) [#/Vol] 260 10*3/uL Normal 140-440 [facility] Comment on above: Performed By: #### L [id number] ####Watch Assembler: SHENA GUERIN ([id number])[facility] OLLIENEW [facility] (SBHLAB)[address] RBC (Bld) [#/Vol] 4.35 10*6/uL Low 4.40-5.90 [facility] Comment on above: Performed By: #### L [id number] ####Watch Assembler: SHENA GUERIN ([phone])[facility] OLLIENEW [facility] (SBHLAB)[address] WBC (Bld) [#/Vol] 9.8 10*3/uL Normal 3.6-10.7 [facility] Comment on above: Performed By: #### L [id number] ####Watch Assembler: SHENA GUERIN ([id number])[facility] (SBHLAB)[address] [place] [address] COMPLETE URINALYSIS WITH REF VAIBHAV TO CULTUREon 06-19-2024 BACTERIA (#/HPF) IN URINE Negative Normal Negative [facility] Comment on above: Performed By: #### L [id number] ####Watch Assembler: SHENA GUERIN ([id number])[facility] (SBHLAB)[address] BILIRUBIN, TOTAL PRESENCE IN URINE 0.5 mg/dL Abnormal Negative [facility] Comment on above: Performed By: #### L [id number] ####Watch Assembler: SHENA GUERIN ([id number])[facility] (SBHLAB)[address] Clarity (U) Clear Normal Clear [facility] Comment on above: Performed By: #### L [id number] ####Watch Assembler: SHENA GUERIN ([id number])[facility] [place] (SBHLAB)[address] Color (U) Dark Yellow Abnormal Lt. Yellow [facility] Comment on above: Performed By: #### L [id number] ####Watch Assembler: SHENA GUERIN ([id number])[facility] (HLAB)[address] GLUCOSE (MG/DL) IN URINE Normal Normal Normal (<70) [facility] Comment on above: Performed By: #### L [id number] ####Watch Assembler: SHENA GUERIN ([id number])[facility] ([facility])[address] HEMOGLOBIN PRESENCE IN URINE Negative Normal Negative [facility] Comment on above: Performed By: #### L [id number] ####Watch Assembler: SHENA GUERIN ([id number])[facility] ([facility])[address] Ketones Ql (U) Trace Abnormal Negative [facility] Comment on above: Performed By: #### L [id number] ####Watch Assembler: SHENA GUERIN ([id number])[facility] ([facility])[address] LEUKOCYTE ESTERASE PRESENCE IN URINE BY TEST STRIP Negative Normal Negative [facility] Comment on above: Performed By: #### L [id number] ####Watch Assembler: SHENA GUERIN ([id number])[facility] ([facility])[address] [place] [address] [place] MUCUS (#/LPF) IN URINE SEDIMENT Many Abnormal Negative [facility] Comment on above: Performed By: #### L [id number] ####Watch Assembler: SHENA GUERIN ([id number])[facility] ([facility])[address] NITRITE PRESENCE IN URINE Negative Normal Negative [facility] Comment on above: Performed By: #### L [id number] ####Watch Assembler: SHENA GUERIN ([id number])[facility] [place] (SBHLAB)[address] pH (U) 6.0 [pH] Normal 5.0-8.0 [facility] Comment on above: Performed By: #### L [id number] ####Watch Assembler: SHENA GUERIN ([id number])[facility] (SBHLAB)[address] Protein (U) [Mass/Vol] 30 mg/dL Abnormal Negative [facility] Comment on above: Performed By: #### L [id number] ####Watch Assembler: SHENA DEL ROSARIOMARILOUBETTY ([phone])[facility] ([facility])[address] RBC (#/HPF) IN URINE SEDIMENT 3-5 Abnormal 0-2 [facility] Comment on above: Performed By: #### L [id number] ####Watch Assembler: SHENA CHAMPAGNEBETTY ([id number])[facility] ([facility])[address] [place] [address] Specific gravity (U) [Rel density] 1.037 High 1.005-1.030 [facility] Comment on above: Result Comment: PIEDAD Echeverria COMMENTS:A specimen with <=10 WBC is not consistent with inflammation. This specimen will not reflex to a urine culture. Performed By: #### L [id number] ####Watch Assembler: SHENA GUERIN ([phone])[facility] ([facility])[address] SQUAMOUS EPITHELIAL CELLS (#/HPF) IN URINE SEDIMENT 0-2 Normal 3-5 [facility] Comment on above: Performed By: #### L [id number] ####Watch Assembler: SHENA GUERIN ([id number])[facility] ([facility])[address] UROBILINOGEN (MG/DL) IN URINE 6 mg/dL Abnormal Normal (0-1) [facility] Comment on above: Performed By: #### L [id number] ####Watch Assembler: SHENA APOORVA ([id number])[facility] [place] (SBHLAB)[address] WBC (LEUKOCYTE) (#/HPF) IN URINE SEDIMENT 0-2 Normal 0-5 [facility] Comment on above: Performed By: #### L [id number] ####Watch Assembler: SHENA DEL ROSARIOHAMIDA ([phone])[facility] [place] (SBHLAB)[address] COMPREHENSIVE METABOLIC PANE Rylan 06-19-2024 Albumin [Mass/Vol] 3.7 g/dL Normal 3.5-5.0 [facility] Comment on above: Performed By: #### L [id number], LAB99 ####Watch Assembler: SHENA DEL ROSARIOHAMIDA ([id number])[facility] [place] (SBHLAB)[address] ALP [Catalytic activity/Vol] 161 U/L High 40-150 [facility] Comment on above: Performed By: #### L AB17, LAB99 ####Watch Assembler: SHENA GUERIN ([id number])[facility] [place] (SBHLAB)[address] ALT [Catalytic activity/Vol] 50 U/L High <40 [facility] Comment on above: Performed By: #### L AB17, LAB99 ####Watch Assembler: SHENA GUERIN ([id number])[facility] (SBHLAB)[address] Anion gap [Moles/Vol] 11 mmol/L Normal 3-13 [facility] Comment on above: Performed By: #### L AB17, LAB99 ####Watch Assembler: SHENA GUERIN ([id number])[facility] [place] (SBHLAB)[address] AST [Catalytic activity/Vol] 90 U/L High <34 [facility] Comment on above: Performed By: #### L AB17, LAB99 ####Watch Assembler: SHENA GUERIN ([id number])[facility] [place] (SBHLAB)[address] Bilirubin [Mass/Vol] 1.2 mg/dL High <1.2 [facility] Comment on above: Performed By: #### L AB17, LAB99 ####Watch Assembler: SHENA GUERIN ([id number])[facility] [place] (SBHLAB)[address] Calcium [Mass/Vol] 9.3 mg/dL Normal 8.4-10.2 [facility] Comment on above: Performed By: #### L AB17, LAB99 ####Watch Assembler: SHENA GUERIN ([phone])[facility] [place] (SBHLAB)[address] Chloride [Moles/Vol] 107 mmol/L Normal 98-107 [facility] Comment on above: Performed By: #### L AB17, LAB99 ####Watch Assembler: SHENA GUERIN ([phone])[facility] [place] (SBHLAB)[address] CO2 [Moles/Vol] 21 mmol/L Low 22-29 [facility] Comment on above: Performed By: #### L AB17, LAB99 ####Watch Assembler: SHENA GUERIN ([id number])[facility] [place] (SBHLAB)[address] Creatinine [Mass/Vol] 0.68 mg/dL Low 0.72-1.25 [facility] Comment on above: Performed By: #### L AB17, LAB99 ####Watch Assembler: SHENA GUERIN ([id number])[facility] [place] (SBHLAB)[address] GLOMERULAR FILTRATION RATE ML/MIN/1.73 SQ M.PREDICTED >90.0 Normal >60.0 [facility] Comment on above: Result Comment: Calc ulation based on the Chronic Kidney Disease Epidemiology Collaboration (CKD-EPI) equation refit without adjustment for race Performed By: #### L AB17, LAB99 ####Watch Assembler: SHENA GUERIN ([id number])[facility] [place] (SBHLAB)[address] Glucose [Mass/Vol] 104 mg/dL High 74-100 [facility] Comment on above: Performed By: #### L AB17, LAB99 ####Watch Assembler: SHENA GUERIN ([id number])[facility] [place] (SBHLAB)[address] Potassium [Moles/Vol] 4.2 mmol/L Normal 3.5-5.1 [facility] Comment on above: Result Comment: [facility] potassium values may be up to 0.5 mmol/L lower than serum values. Performed By: #### L AB17, LAB99 ####Watch Assembler: SHENA GUERIN ([id number])[facility] [place] (SBHLAB)[address] Protein [Mass/Vol] 7.5 g/dL Normal 6.4-8.3 [facility] Comment on above: Performed By: #### L AB17, LAB99 ####Watch Assembler: SHENA GUERIN ([id number])[facility] [place] (SBHLAB)[address] Sodium [Moles/Vol] 139 mmol/L Normal 136-145 [facility] Comment on above: Performed By: #### L AB17, LAB99 ####Watch Assembler: SHENA GUERIN ([id number])[facility] (SBHLAB)[address] Urea nitrogen [Mass/Vol] 5 mg/dL Low 8-21 [facility] Comment on above: Performed By: #### L AB17, LAB99 ####Watch Assembler: SHENA GUERIN ([phone])[facility] (SBHLAB)[address] Comprehensive metabolic 1998 panelon 06-19-2024 Albumin [Mass/Vol] 3.7 g/dL 3.5 - 5.0 g/dL [facility] ALP [Catalytic activity/Vol] 161 U/L High 40 - 150 U/L [facility] ALT [Catalytic activity/Vol] 50 U/L High [facility] U/L [facility] Anion gap [Moles/Vol] 11 mmol/L 3 - 13 mmol/L [facility] AST [Catalytic activity/Vol] 90 U/L High [facility] - 34 U/L [facility] Bilirubin [Mass/Vol] 1.2 mg/dL High NINF - 1.2 mg/dL [facility] Calcium [Mass/Vol] 9.3 mg/dL 8.4 - 10. 2 mg/dL [facility] Chloride [Moles/Vol] 107 mmol/L 98 - 10 7 mmol/L [facility] CO2 [Moles/Vol] 21 mmol/L Low 22 - 29 mmol/L [facility] Creatinine [Mass/Vol] 0.68 mg/dL Low 0.72 - 1.25 mg/dL [facility] GFR/1.73 sq M.predicted (S/P/Bld) [Vol rate/Area] - PINF [facility] Comment on above: Calculation based on the Chronic Kidney Disease Epidemiology Collaboration (CKD-EPI) equation refit without adjustment for race Glucose [Mass/Vol] 104 mg/dL High 74 - 100 mg/dL [facility] Potassium [Moles/Vol] 4.2 mmol/L 3.5 - 5.1 mmol/L [facility] Comment on above: Plasma potassium víctor ues may be up to 0.5 mmol/L lower than serum values. Protein [Mass/Vol] 7.5 g/dL 6.4 - 8.3 g/dL [facility] Sodium [Moles/Vol] 139 mmol/L 136 - 145 mmol/L [facility] Urea nitrogen [Mass/Vol] 5 mg/dL Low 8 - 21 mg/dL [facility] ED Provider Noteon ED Provider Note Normal [facility] HIGH SENSITIVITY TROPONIN, S ERIAL BASELINEon 06-19-2024 TROPONIN HS SERIAL BASELINE <3 Normal <=35 [facility] Comment on above: Result Comment: In i ndividuals presenting with symptoms > 2h, a baseline troponin <= 5 ng/L suggests acutecardiac injury is unlikely and further serial testing is generally not indicated. Performed By: #### L [id number] ####Watch Assembler: SHENA DEL ROSARIOHAMIDA ([phone])[facility] OLLIEBANNER (SBHLAB)[address] LIPASEon 06-19-2024 Lipase [Catalytic activity/Vol] 65 U/L High <55 [facility] Comment on above: Performed By: #### L AB17, LAB99 ####Watch Assembler: SHENA APOORVA ([id number])[facility]LLIEBANNER (SBHLAB)[address] Laboratory - Chemistry and C hemistry - challengeon 06-19-2024 Lipase [Catalytic activity/Vol] 65 U/L High NINF - 55 U/L [facility] No Panel Informationon 06-19 Interpretation and review of laboratory results Normal [facility] Troponin HS Serial Baseline ng/L NINF - 35 ng/L [facility] Comment on above: In individuals prese nting with symptoms > 2h, a baseline troponin <= 5 ng/L suggests acute cardiac injury is unlikely and further serial testing is generally not indicated. [facility] Interpretation and review of laboratory results Abnormal [facility] Urinalysis complete panel (U )Ordered By: Nigel Palmer on 06-19-2024 Bacteria LM.HPF (Urine sed) [#/Area] Negative Negative /HPF [facility] Bilirubin Ql (U) 0.5 mg/dL Abnormal Negative [facility] Clarity (U) Clear Clear [facility] Color (U) Dark Yellow Abnormal Lt. Yellow [facility] Epithelial cells.squamous LM.HPF (Urine sed) [#/Area] 0-2 [facility] Glucose Ql (U) Normal Normal (<70) mg/dL [facility] Hemoglobin Ql (U) Negative Negative mg/dL [facility] Interpretation and review of laboratory results Abnormal [facility] Ketones (U) [Mass/Vol] Trace Abnormal Negat chan mg/dL [facility] Leukocyte esterase Test strip Ql (U) Negative Negative Teofilo/uL [facility] Mucus LM.HPF (Urine sed) [#/Area] Many Abnormal Negative /LPF [facility] Nitrite Ql (U) Negative Negative [facility] pH (U) 6.0 [pH] 5.0 - 8.0 pH [facility] Protein (U) [Mass/Vol] 30 mg/dL Abnormal Negative [facility] RBC LM.HPF (Urine sed) [#/Area] 3-5 Abnormal [facility] Specific gravity (U) [Rel density] 1.037 High 1.005 - 1.030 [facility] Urobilinogen (U) [Mass/Vol] 6 mg/dL Abnormal Normal (0-1) [facility] WBC LM.HPF (Urine sed) [#/Area] 0-2 [facility] A specimen with <=10 WBC is not consistent with inflammation. This specimen will not reflex to a urine culture. [facility] XR Chest Single viewon 06-19 No radiographic acute cardiopulmonary process. Report Dictated on Electronically Signed By: Seema Watson MD Electronically Signed Date/Time: 06/19/2024 9:43 PM EDT [facility] Patient Name: RORO CLAIRE : 1985 Exam Date/Time: 06/19/2024 21:32 Procedure: XR CHEST 1 VIEW Ordering Provider: ADAME MARY Reason For Exam: cp INDICATION: Chest pain. VIEWS: Chest portable-one image COMPARISON: 12/14/2023 FINDINGS: The trachea is midline. The cardiac silhouette is within normal limits. The lungs are clear. The costophrenic angles are sharp. The bone mineralization is normal. [facility] Seema Watson MD - 06/19/2024 Patient [...] Electronically Signed Date/Time: 06/19/2024 9:43 PM EDT [facility] [employer] Radiology Study observation (narrative) [employer] XR Chest Single viewOrdered By: Seema Watson on 06-19-2024 [employer] Work Phone: CBC W Auto Differential pane l (Bld)on 06-18-2024 Basophils (Bld) [#/Vol] 0 10*3/uL 0.0 - 0.2 10*3/uL [facility] [employer] Basophils/100 WBC (Bld) 0.4 % 0.0 - 2.0 % [facility] [employer] Eosinophils (Bld) [#/Vol] 0.1 10*3/uL 0.0 - 0.5 10*3/uL [facility] [employer] Eosinophils/100 WBC (Bld) 1.1 % 0.0 - 6.0 % [facility] [employer] Erythrocyte distribution width (RBC) [Ratio] 14.1 % 11.5 - 15.0 % [facility] [employer] Hematocrit (Bld) [Volume fraction] 42.8 % 40.0 - 52.0 % [facility] [employer] Hemoglobin (Bld) [Mass/Vol] 14.1 g/dL 13.0 - 18.0 g/dL [facility] [employer] Immature granulocytes (Bld) [#/Vol] 0 10*3/uL NINF - 0.1 10*3/uL [facility] [employer] Immature granulocytes/100 WBC (Bld) 0.5 % 0.0 - 2.0 % [facility] [employer] Interpretation and review of laboratory results Normal [facility] [employer] Lymphocytes (Bld) [#/Vol] 2.2 10*3/uL 1.0 - 4.3 10*3/uL [facility] [employer] Lymphocytes/100 WBC (Bld) 26.6 % 15.0 - 45.0 % [facility] [employer] MCH (RBC) [Entitic mass] 30.3 pg 26.0 - 34.0 pg [facility] [employer] MCHC (RBC) [Mass/Vol] 32.9 % 30.5 - 36.0 % [facility] [employer] MCV (RBC) [Entitic vol] 92 fL 77.0 - 99.0 fL [facility] Monocytes (Bld) [#/Vol] 0.6 10*3/uL 0.0 - 0.9 10*3/uL [facility] Monocytes/100 WBC (Bld) 7.1 % 5.0 - 13.0 % [facility] Neutrophils (Bld) [#/Vol] 5.2 10*3/uL 1.8 - 7.5 10*3/uL [facility] Neutrophils/100 WBC (Bld) 64.3 % 38.0 - 82.0 % [facility] Nucleated RBC/100 WBC (Bld) [Ratio] 0 % [facility] Platelet mean volume (Bld) [Entitic vol] 10.6 fL 9.0 - 12.7 fL [facility] Platelets (Bld) [#/Vol] 299 10*3/uL 140 - 440 10*3/uL [facility] RBC (Bld) [#/Vol] 4.65 10*6/uL 4.40 - 5.9 0 10*6/uL [facility] WBC (Bld) [#/Vol] 8.1 10*3/uL 3.6 - 10.7 10*3/uL [facility] CBC WITH AUTO DIFFERENTIALon 06-18-2024 Basophils (Bld) [#/Vol] 0.0 10*3/uL Normal 0.0-0.2 [facility] Comment on above: Performed By: #### L [id number] ####Watch Assembler: SHENA GUERIN ([id number])[facility])[address] [place] [address] Basophils/100 WBC (Bld) 0.4 % Normal 0.0-2.0 [facility] Comment on above: Performed By: #### L [id number] ####Watch Assembler: SHENA GUERIN ([id number])[facility] (SBAB)[address] Eosinophils (Bld) [#/Vol] 0.1 10*3/uL Normal 0.0-0.5 [facility] Comment on above: Performed By: #### L [id number] ####Watch Assembler: SHENA [id number])[facility] (SBHLAB)[address] Eosinophils/100 WBC (Bld) 1.1 % Normal 0.0-6.0 [facility] Comment on above: Performed By: #### L [id number] ####Watch Assembler: SHENA GUERIN ([phone])[facility] [place] (SBHLAB)[address] Erythrocyte distribution width (RBC) [Ratio] 14.1 % Normal 11.5-15.0 [facility] Comment on above: Performed By: #### L [id number] ####Watch Assembler: SHENA GUERIN ([id number])[facility]BNEW [facility]EX[facility] ([facility])[address] Hematocrit (Bld) [Volume fraction] 42.8 % Normal 40.0-52.0 [facility] Comment on above: Performed By: #### L [id number] ####Watch Assembler: SHENA GUERIN ([id number])[facility] (SBHLAB)[address] Hemoglobin (Bld) [Mass/Vol] 14.1 g/dL Normal 13.0-18.0 [facility] Comment on above: Performed By: #### L [id number] ####Watch Assembler: SHENA GUERIN ([id number])[facility] (SBHLAB)[address] IMMATURE GRANS % 0.5 % Normal 0.0-2.0 [facility] Comment on above: Performed By: #### L [id number] ####Watch Assembler: SHENA GUERIN ([id number])[facility] (SBHLAB)[address] IMMATURE GRANS ABSOLUTE 0.0 10*3/uL Normal <0.1 [facility] Comment on above: Performed By: #### L [id number] ####Watch Assembler: SHENA GUERIN ([id number])[facility] (SBHLAB)[address] Lymphocytes (Bld) [#/Vol] 2.2 10*3/uL Normal 1.0-4.3 [facility] Comment on above: Performed By: #### L [id number] ####Watch Assembler: SHENA GUERIN ([id number])[facility]ON[facility] [place] (SBHLAB)[address] Lymphocytes/100 WBC (Bld) 26.6 % Normal 15.0-45.0 [facility] Comment on above: Performed By: #### L [id number] ####Watch Assembler: SHENA GUERIN ([phone])[facility]ONK[facility] [place] (SBHLAB)[address] [place] [address] MCH (RBC) [Entitic mass] 30.3 pg Normal 26.0-34.0 [facility] Comment on above: Performed By: #### L [id number] ####Watch Assembler: SHENA GUERIN ([id number])[facility] [place] (SBHLAB)[address] [place] [address] MCHC 32.9 % Normal 30.5-36.0 [facility] Comment on above: Performed By: #### L [id number] ####Watch Assembler: SHENA GUERIN ([phone])[place] (SBHLAB)[address] [place] [address] MCV (RBC) [Entitic vol] 92.0 fL Normal 77.0-99.0 [facility] Comment on above: Performed By: #### L [id number] ####Watch Assembler: SHENA GUERIN ([phone])[facility] (SBHLAB)[address] [place] [address] Monocytes (Bld) [#/Vol] 0.6 10*3/uL Normal 0.0-0.9 [facility] Comment on above: Performed By: #### L [id number] ####Watch Assembler: SHENA GUERIN ([id number])[facility] [place] (SBHLAB)[address] Monocytes/100 WBC (Bld) 7.1 % Normal 5.0-13.0 [facility] Comment on above: Performed By: #### L [id number] ####Watch Assembler: SHENA GUERIN ([id number])[facility] (SBHLAB)[address] NEUTROPHILS ABSOLUTE 5.2 10*3/uL Normal 1.8-7.5 [facility] Comment on above: Performed By: #### L [id number] ####Watch Assembler: SHENA GUERIN ([id number])[facility] (SBHLAB)[address] Neutrophils/100 WBC (Bld) 64.3 % Normal 38.0-82.0 [facility] Comment on above: Performed By: #### L [id number] ####Watch Assembler: SHENA GUERIN ([id number])[facility] [place] (SB[facility])[address] NRBC 0.0 /100 WBCs Normal 0.0-2.0 [facility] Comment on above: Performed By: #### L [id number] ####Watch Assembler: SHENA GUERIN ([id number])[facility] (SBHLAB)[address] Platelet mean volume (Bld) [Entitic vol] 10.6 fL Normal 9.0-12.7 [facility] Comment on above: Performed By: #### L [id number] ####Watch Assembler: SHENA GUERIN ([id number])[facility] [place] (SBHLAB)[address] [place] [address] [place] Platelets (Bld) [#/Vol] 299 10*3/uL Normal 140-440 [facility] Comment on above: Performed By: #### L [id number] ####Watch Assembler: SHENA GUERIN ([phone])[facility] [place] (SBHLAB)[address] RBC (Bld) [#/Vol] 4.65 10*6/uL Normal 4.40-5.90 [facility] Comment on above: Performed By: #### L [id number] ####Watch Assembler: SHENA GUERIN ([id number])[facility] AVONKyler OSORIO (SBHLAB)[address] WBC (Bld) [#/Vol] 8.1 10*3/uL Normal 3.6-10.7 [facility] Comment on above: Performed By: #### L [id number] ####Watch Assembler: SHENA GUERIN ([phone])[facility] AVONKyler NEUMANNTu (SBHLAB)[address] COMPREHENSIVE METABOLIC PANE Rylan 06-18-2024 Albumin [Mass/Vol] 3.9 g/dL Normal 3.5-5.0 [facility] Comment on above: Performed By: #### Iggy AB99, LAB17, LAB46 ####Watch Assembler: SHENA GUERIN ([id number])[facility] AVONKyler ENGELNEW MEXICO BEHAVIOR[facility] HE[facility] INSTITUTE AT LAS VEGASN (SBHLAB)[address] ALP [Catalytic activity/Vol] 170 U/L High 40-150 [facility] Comment on above: Performed By: #### L AB99, LAB17, LAB46 ####Watch Assembler: SHENA GUERIN ([id number])[facility] AVONKyler ENGELCAPRICEN (SBHLAB)[address] ALT [Catalytic activity/Vol] 59 U/L High <40 [facility] Comment on above: Performed By: #### L AB99, LAB17, LAB46 ####Watch Assembler: SHENA GUERIN ([id number])[facility] [place] (SBHLAB)[address] Anion gap [Moles/Vol] 10 mmol/L Normal 3-13 [facility] Comment on above: Performed By: #### L AB99, LAB17, LAB46 ####Watch Assembler: SHENA GUERIN ([phone])[facility] [place] (SBHLAB)[address] [place] [address] [place] AST [Catalytic activity/Vol] 91 U/L High <34 [facility] Comment on above: Performed By: #### L AB99, LAB17, LAB46 ####Watch Assembler: SHENA GUERIN ([id number])[facility] [place] [place] (SBHLAB)[address] Bilirubin [Mass/Vol] 1.2 mg/dL High <1.2 [facility] Comment on above: Performed By: #### L AB99, LAB17, LAB46 ####Watch Assembler: SHENA GUERIN ([phone])[facility] THIENN (SBHLAB)[address] Calcium [Mass/Vol] 9.7 mg/dL Normal 8.4-10.2 [facility] Comment on above: Performed By: #### Iggy ROBB, LAB17, LAB46 ####Watch Assembler: SHENA GUERIN ([phone])[facility] OLLIENEW MEXICO BEHAVIOR[facility] INSTITUTE AT LAS VEGASN (SBHLAB)[address] [place] [address] [place] Chloride [Moles/Vol] 105 mmol/L Normal 98-107 [facility] Comment on above: Performed By: #### L AB99, LAB17, LAB46 ####Watch Assembler: SHENA GUERIN ([id number])[facility] OLLIEERTON (SBHLAB)[address] [place] [address] [place] CO2 [Moles/Vol] 23 mmol/L Normal 22-29 [facility] Comment on above: Performed By: #### L AB99, LAB17, LAB46 ####Watch Assembler: SHENA GUERIN ([id number])[facility] [place] (SBHLAB)[address] [place] [address] [place] Creatinine [Mass/Vol] 0.64 mg/dL Low 0.72-1.25 [facility] Comment on above: Performed By: #### L AB99, LAB17, LAB46 ####Watch Assembler: SHENA GUERIN ([id number])[facility] AVONKyler ENGELBANNER (SBHLAB)[address] GLOMERULAR FILTRATION RATE ML/MIN/1.73 SQ M.PREDICTED >90.0 Normal >60.0 [facility] Comment on above: Result Comment: Calc ulation based on the Chronic Kidney Disease Epidemiology Collaboration (CKD-EPI) equation refit without adjustment for race Performed By: #### L AB99, LAB17, LAB46 ####Watch Assembler: SHENA GUERIN ([id number])[facility] AVONKyler LA HARPE (SBHLAB)[address] Glucose [Mass/Vol] 120 mg/dL High 74-100 [facility] Comment on above: Performed By: #### Iggy AB99, LAB17, LAB46 ####Watch Assembler: SHENA GUERIN ([id number])[facility] (SBHLAB)[address] Potassium [Moles/Vol] 4.0 mmol/L Normal 3.5-5.1 [facility] Comment on above: Result Comment: [facility] potassium values may be up to 0.5 mmol/L lower than serum values. Performed By: #### Iggy JOHNSON99, LAB17, LAB46 ####Watch Assembler: SHENA GUERIN ([phone])[facility]ONKyler ENGELBANNER (SBHLAB)[address] Protein [Mass/Vol] 8.2 g/dL Normal 6.4-8.3 [facility] Comment on above: Performed By: #### L AB99, LAB17, LAB46 ####Watch Assembler: SHENA GUERIN ([id number])[facility] (SBHLAB)[address] [place] [address] [place] Sodium [Moles/Vol] 138 mmol/L Normal 136-145 [facility] Comment on above: Performed By: #### L AB99, LAB17, LAB46 ####Watch Assembler: SHENA GUERIN ([id number])[facility] (SBHLAB)[address] Urea nitrogen [Mass/Vol] 4 mg/dL Low 8-21 [facility] Comment on above: Performed By: #### L AB99, LAB17, LAB46 ####Watch Assembler: SHENA GUERIN ([phone])[facility] [place]ON (SBHLAB)[address] Comprehensive metabolic 1998 panelon 06-18-2024 Albumin [Mass/Vol] 3.9 g/dL 3.5 - 5.0 g/dL [facility] ALP [Catalytic activity/Vol] 170 U/L High 40 - 150 U/L [facility] ALT [Catalytic activity/Vol] 59 U/L High NINF - 40 U/L [facility] Anion gap [Moles/Vol] 10 mmol/L 3 - 13 mmol/L [facility] AST [Catalytic activity/Vol] 91 U/L High NINF - 34 U/L [facility] Bilirubin [Mass/Vol] 1.2 mg/dL High NINF - 1.2 mg/dL [facility] Calcium [Mass/Vol] 9.7 mg/dL 8.4 - 10. 2 mg/dL [facility] Chloride [Moles/Vol] 105 mmol/L 98 - 10 7 mmol/L [facility] CO2 [Moles/Vol] 23 mmol/L 22 - 29 mmol/L [facility] Creatinine [Mass/Vol] 0.64 mg/dL Low 0.72 - 1.25 mg/dL [facility] GFR/1.73 sq M.predicted (S/P/Bld) [Vol rate/Area] - PINF [facility] Comment on above: Calculation based on the Chronic Kidney Disease Epidemiology Collaboration (CKD-EPI) equation refit without adjustment for race Glucose [Mass/Vol] 120 mg/dL High 74 - 100 mg/dL [facility] Interpretation and review of laboratory results Abnormal [facility] Potassium [Moles/Vol] 4 mmol/L 3.5 - 5.1 mmol/L [facility] Comment on above: Plasma potassium víctor ues may be up to 0.5 mmol/L lower than serum values. Protein [Mass/Vol] 8.2 g/dL 6.4 - 8.3 g/dL [facility] Sodium [Moles/Vol] 138 mmol/L 136 - 145 mmol/L [facility] Urea nitrogen [Mass/Vol] 4 mg/dL Low 8 - 21 mg/dL [facility] ED Provider Noteon ED Provider Note Normal [facility] ETHANOLon 06-18-2024 ETHANOL IN SER/PLAS <10 Normal <10 [facility] Comment on above: Result Comment: PIEDAD R COMMENTS:PALLIATIVE CARE NURSE PRACTITIONER depression is seen >100 mg/dL.NOTE: This result is for medical treatment only. Analysis performed using non-forensic procedures. Performed By: #### L AB99, LAB17, LAB46 ####Watch Assembler: SHENA GUERIN ([phone])[facility] ([facility])[address] [place] [address] Ethanol (Bld) [Mass/Vol]on 0 06-18-2024 Ethanol [Mass/Vol] mg/dL NINF - 10 mg/dL [facility] Interpretation and review of laboratory results Normal [facility] PALLIATIVE CARE NURSE PRACTITIONER depression is se en >100 mg/dL. NOTE: This result is for medical treatment only. Analysis performed using non-forensic procedures. [facility] LIPASEon 06-18-2024 Lipase [Catalytic activity/Vol] 60 U/L High <55 [facility] Comment on above: Performed By: #### L AB99, LAB17, LAB46 ####Watch Assembler: SHENA GUERIN ([id number])[facility] (SBAB)[address] [place] [address] Laboratory - Chemistry and C hemistry - challengeon 06-18-2024 Lipase [Catalytic activity/Vol] 60 U/L High NINF - 55 U/L [facility] Lipase [Catalytic activity/V ol]on 06-18-2024 Interpretation and review of laboratory results Abnormal [facility] No Panel Informationon 06-18 [facility] [address] ABDOMEN PELVIS W CONTRAST on 06-13-2024 CT ABDOMEN PELVIS W CONTRAST Normal [facility] CT Abdomen and Pelvis W cont rast [...] Electronically Signed Date/Time: 06/13/2024 12:10 AM EDT [facility] 1985 [id number] Exam Date/Time: 06/12/2024 23:37 Procedure: CT ABDOMEN [...] is no evidence of hydronephrosis or hydroureter. [facility] [employer] Cedrick Pak MD - 06/13/2024 Patient Name: [facility] 1985 [id number] Exam Date/Time: 06/12/2024 23:37 Procedure: CT ABDOMEN [...] Electronically Signed Date/Time: 06/13/2024 12:10 AM EDT [employer] CT Abdomen and Pelvis W cont rast IVOrdered By: Cedrick Pak on 06-13-2024 [employer] Work Phone: CBC W Auto Differential pane l (Bld)on 06-12-2024 Basophils (Bld) [#/Vol] 0 10*3/uL 0.0 - 0.2 10*3/uL [employer] Basophils/100 WBC (Bld) 0.4 % 0.0 - 2.0 % [employer] Eosinophils (Bld) [#/Vol] 0.1 10*3/uL 0.0 - 0.5 10*3/uL [employer] Eosinophils/100 WBC (Bld) 0.9 % 0.0 - 6.0 % [employer] Erythrocyte distribution width (RBC) [Ratio] 14.4 % 11.5 - 15.0 % [employer] Hematocrit (Bld) [Volume fraction] 42.7 % 40.0 - 52.0 % [employer] Hemoglobin (Bld) [Mass/Vol] 14.1 g/dL 13.0 - 18.0 g/dL [employer] Immature granulocytes (Bld) [#/Vol] 0 10*3/uL NINF - 0.1 10*3/uL [employer] Immature granulocytes/100 WBC (Bld) 0.2 % 0.0 - 2.0 % [employer] Interpretation and review of laboratory results Abnormal [employer] Lymphocytes (Bld) [#/Vol] 2.4 10*3/uL 1.0 - 4.3 10*3/uL [employer] Lymphocytes/100 WBC (Bld) 26.5 % 15.0 - 45.0 % [employer] MCH (RBC) [Entitic mass] 30.5 pg 26.0 - 34.0 pg [employer] MCHC (RBC) [Mass/Vol] 33 % 30.5 - 36.0 % [employer] MCV (RBC) [Entitic vol] 92.2 fL 77.0 - 99.0 fL [facility] [employer] Monocytes (Bld) [#/Vol] 0.4 10*3/uL 0.0 - 0.9 10*3/uL [facility] Monocytes/100 WBC (Bld) 4.4 % Low 5.0 - 13.0 % [facility] Neutrophils (Bld) [#/Vol] 6 10*3/uL 1.8 - 7.5 10*3/uL [facility] Neutrophils/100 WBC (Bld) 67.6 % 38.0 - 82.0 % [facility] Nucleated RBC/100 WBC (Bld) [Ratio] 0 % [facility] Platelet mean volume (Bld) [Entitic vol] 10.2 fL 9.0 - 12.7 fL [facility] Comment on above: MPV is a calculated measurement using platelet volume ratio Platelets (Bld) [#/Vol] 349 10*3/uL 140 - 440 10*3/uL [facility] RBC (Bld) [#/Vol] 4.63 10*6/uL 4.40 - 5.9 0 10*6/uL [facility] WBC (Bld) [#/Vol] 8.9 10*3/uL 3.6 - 10.7 10*3/uL [facility] CBC WITH AUTO DIFFERENTIALon 06-12-2024 Basophils (Bld) [#/Vol] 0.0 10*3/uL Normal 0.0-0.2 [facility] Comment on above: Performed By: #### L [id number] ####Watch Assembler: SHENA GUERIN ([id number])[facility] WorldscapeCOUNT INCLUDES THE [facility]ORD[facility] CHILDREN'S HOSPITALRiparAutOnlineS ([facility])[address] Basophils/100 WBC (Bld) 0.4 % Normal 0.0-2.0 [facility] Comment on above: Performed By: #### L [id number] ####Watch Assembler: SHENA GUERIN ([id number])[facility] BEACHWOODTizor Systems [place]OSSINGS ([facility])[address] Eosinophils (Bld) [#/Vol] 0.1 10*3/uL Normal 0.0-0.5 [facility] Comment on above: Performed By: #### L [id number] ####Watch Assembler: SHENA GUERIN ([id number])[facility] [facility] CORPORATIONITAGE [facility] ([facility])[address] Eosinophils/100 WBC (Bld) 0.9 % Normal 0.0-6.0 [facility] Comment on above: Performed By: #### L [id number] ####Watch Assembler: SHENA CHAMPAGNEBETTY ([phone])[facility]ACHWOODGE [place] ([facility])[address] Erythrocyte distribution width (RBC) [Ratio] 14.4 % Normal 11.5-15.0 [facility] Comment on above: Performed By: #### L [id number] ####Watch Assembler: SHENA CHAMPAGNEBETTY ([id number])[facility]WOOD[facility] [place] ([facility])[address] Hematocrit (Bld) [Volume fraction] 42.7 % Normal 40.0-52.0 [facility] Comment on above: Performed By: #### L [id number] ####Watch Assembler: SHENA GUERIN ([id number])[facility] BEACHWOODTizor Systems [place] ([facility])[address] Hemoglobin (Bld) [Mass/Vol] 14.1 g/dL Normal 13.0-18.0 [facility] Comment on above: Performed By: #### L [id number] ####Watch Assembler: SHENA GUERIN ([id number])[facility] World[employer]ITAGE [place] ([facility])[address] IMMATURE GRANS % 0.2 % Normal 0.0-2.0 [facility] Comment on above: Performed By: #### L [id number] ####Watch Assembler: SHENA GUERIN ([id number])[facility] [facility] CORPORATION[facility]AGE [facility] ([facility])[address] IMMATURE GRANS ABSOLUTE 0.0 10*3/uL Normal <0.1 [facility] Comment on above: Performed By: #### L [id number] ####Watch Assembler: SHENA GUERIN ([phone])[facility] [facility] ([facility])[address] Lymphocytes (Bld) [#/Vol] 2.4 10*3/uL Normal 1.0-4.3 [facility] Comment on above: Performed By: #### L [id number] ####Watch Assembler: SHENA GUERIN ([id number])[facility] [facility] ([facility])[address] Lymphocytes/100 WBC (Bld) 26.5 % Normal 15.0-45.0 [facility] Comment on above: Performed By: #### L [id number] ####Watch Assembler: SHENA GUERIN ([phone])[facility] [facility] ([facility])[address] MCH (RBC) [Entitic mass] 30.5 pg Normal 26.0-34.0 [facility] Comment on above: Performed By: #### L [id number] ####Watch Assembler: SHENA GUERIN ([phone])[facility] WorldscapeITAGE [place] ([facility])[address] MCHC 33.0 % Normal 30.5-36.0 [facility] Comment on above: Performed By: #### L [id number] ####Watch Assembler: SHENA GUERIN ([id number])[facility] [facility] ([facility])[address] [place] [address] [place] MCV (RBC) [Entitic vol] 92.2 fL Normal 77.0-99.0 [facility] Comment on above: Performed By: #### L [id number] ####Watch Assembler: SHENA GUERIN ([id number])[facility] [facility] ([facility])[address] [place] [address] [facility] Monocytes (Bld) [#/Vol] 0.4 10*3/uL Normal 0.0-0.9 [facility] Comment on above: Performed By: #### L [id number] ####Watch Assembler: SHENA GUERIN ([phone])[facility] [facility] ([facility])[address] [place] [address] [place] Monocytes/100 WBC (Bld) 4.4 % Low 5.0-13.0 [facility] Comment on above: Performed By: #### L [id number] ####Watch Assembler: SHENA GUERIN ([phone])[facility]AGE [facility] ([facility])[address] [place] [address] [facility] NEUTROPHILS ABSOLUTE 6.0 10*3/uL Normal 1.8-7.5 [facility] Comment on above: Performed By: #### L [id number] ####Watch Assembler: SHENA GUERIN ([phone])[facility] WorldscapeITAGE [place] ([facility])[address] [place] [address] [place] Neutrophils/100 WBC (Bld) 67.6 % Normal 38.0-82.0 [facility] Comment on above: Performed By: #### L [id number] ####Watch Assembler: SHENA GUERIN ([id number])[facility] [employer]ITAGE [place] ([facility])[address] [place] [address] [facility] NRBC 0.0 /100 WBCs Normal 0.0-2.0 [facility] Comment on above: Performed By: #### L [id number] ####Watch Assembler: SHENA GUERIN ([id number])[facility] WorldscapeITAGE [place] ([facility])[address] [place] [address] [facility] Platelet mean volume (Bld) [Entitic vol] 10.2 fL Normal 9.0-12.7 [facility] Comment on above: Result Comment: MPV is a calculated measurement using platelet volume ratio Performed By: #### L [id number] ####Watch Assembler: SHENA GUERIN ([phone])[facility] [employer] ([facility])[address] Platelets (Bld) [#/Vol] 349 10*3/uL Normal 140-440 [facility] Comment on above: Performed By: #### L [id number] ####Watch Assembler: SHENA GUERIN ([phone])[facility] ([facility])[address] [place] [address] RBC (Bld) [#/Vol] 4.63 10*6/uL Normal 4.40-5.90 [facility] Comment on above: Performed By: #### L [id number] ####Watch Assembler: SHENA GUERIN ([id number])[facility] ([facility])[address] [place] [address] WBC (Bld) [#/Vol] 8.9 10*3/uL Normal 3.6-10.7 [facility] Comment on above: Performed By: #### L [id number] ####Watch Assembler: SHENA GUERIN ([phone])[facility] ([facility])[address] [place] [address] COMPREHENSIVE METABOLIC PANE Rylan 06-12-2024 Albumin [Mass/Vol] 3.9 g/dL Normal 3.5-5.0 [facility] Comment on above: Performed By: #### L AB103, LAB17, LAB99, LAB46 ####Watch Assembler: SHENA GUERIN ([phone])[facility] ([facility])[address] [place] [address] ALP [Catalytic activity/Vol] 176 U/L High 40-150 [facility] Comment on above: Performed By: #### L AB103, LAB17, LAB99, LAB46 ####Watch Assembler: SHENA GUERIN ([phone])[facility] ([facility])[address] [place] [address] [place] ALT [Catalytic activity/Vol] 64 U/L High <40 [facility] Comment on above: Performed By: #### L AB103, LAB17, LAB99, LAB46 ####Watch Assembler: SHENA GUERIN ([id number])[facility] ([facility])[address] [place] [address] [facility] Anion gap [Moles/Vol] 14 mmol/L High 3-13 [facility] Comment on above: Performed By: #### Iggy AB103, LAB17, LAB99, LAB46 ####Watch Assembler: SHENA GUERIN ([phone])[facility] ([facility])[address] [place] [address] [place] AST [Catalytic activity/Vol] 104 U/L High <34 [facility] Comment on above: Performed By: #### L AB103, LAB17, LAB99, LAB46 ####Watch Assembler: SHENA GUERIN ([phone])[facility] ([facility])[address] [place] [address] [place] Bilirubin [Mass/Vol] 0.8 mg/dL Normal <1.2 [facility] Comment on above: Performed By: #### L AB103, LAB17, LAB99, LAB46 ####Watch Assembler: SHENA GUERIN ([phone])[facility] ([facility])[address] [place] [address] [place] Calcium [Mass/Vol] 9.5 mg/dL Normal 8.4-10.2 [facility] Comment on above: Performed By: #### L AB103, LAB17, LAB99, LAB46 ####Watch Assembler: SHENA GUERIN ([phone])[facility] ([facility])[address] [place] [address] [place] Chloride [Moles/Vol] 105 mmol/L Normal 98-107 [facility] Comment on above: Performed By: #### Iggy ABSriram, LAB17, LAB99, LAB46 ####Watch Assembler: SHENA GUERIN ([id number])[facility] ([facility])[address] [place] [address] [facility] CO2 [Moles/Vol] 24 mmol/L Normal 22-29 [facility] Comment on above: Performed By: #### Iggy ABSriram, LAB17, LAB99, LAB46 ####Watch Assembler: SHENA GUERIN ([phone])[facility] ([facility])[address] [place] [id number] [facility] Creatinine [Mass/Vol] 0.71 mg/dL Low 0.72-1.25 [facility] Comment on above: Performed By: #### Iggy MCDONALD, LAB17, LAB99, LAB46 ####Watch Assembler: SHENA GUERIN ([phone])[facility] ([facility])[address] [place] [address] [facility] GLOMERULAR FILTRATION RATE ML/MIN/1.73 SQ M.PREDICTED >90.0 Normal >60.0 [facility] Comment on above: Result Comment: Calc ulation based on the Chronic Kidney Disease Epidemiology Collaboration (CKD-EPI) equation refit without adjustment for race Performed By: #### Iggy MCDONALD, LAB17, LAB99, LAB46 ####Watch Assembler: SHENA GUERIN ([phone])[facility] ([facility])[address] [place] [address] [place] Glucose [Mass/Vol] 107 mg/dL High 74-100 [facility] Comment on above: Performed By: #### Iggy AB103, LAB17, LAB99, LAB46 ####Watch Assembler: SHENA GUERIN ([id number])[facility] [place] [address] [place] Potassium [Moles/Vol] 3.9 mmol/L Normal 3.5-5.1 [facility] Comment on above: Result Comment: [facility] potassium values may be up to 0.5 mmol/L lower than serum values. Performed By: #### L AB103, LAB17, LAB99, LAB46 ####Watch Assembler: SHENA GUERIN ([id number])[facility] ([facility])[address] [place] [address] [facility] Protein [Mass/Vol] 8.2 g/dL Normal 6.4-8.3 [facility] Comment on above: Performed By: #### L AB103, LAB17, LAB99, LAB46 ####Watch Assembler: SHENA GUERIN ([id number])[facility] ([facility])[address] [address] [facility] Sodium [Moles/Vol] 143 mmol/L Normal 136-145 [facility] Comment on above: Performed By: #### L AB103, LAB17, LAB99, LAB46 ####Watch Assembler: SHENA GUERIN ([phone])[facility] ([facility])[address] [place] [address] Urea nitrogen [Mass/Vol] 3 mg/dL Low 8-21 [facility] Comment on above: Performed By: #### L AB103, LAB17, LAB99, LAB46 ####Watch Assembler: SHENA GUERIN ([phone])[facility] ([facility] [id number] [facility] CT Abdomen and Pelvis W cont rast Ellen 06-12-2024 Radiology Study observation (narrative) [facility] Comprehensive metabolic 1998 panelon 06-12-2024 Albumin [Mass/Vol] 3.9 g/dL 3.5 - 5.0 g/dL [facility] ALP [Catalytic activity/Vol] 176 U/L High 40 - 150 U/L [facility] ALT [Catalytic activity/Vol] 64 U/L High NINF - 40 U/L [facility] Anion gap [Moles/Vol] 14 mmol/L High 3 - 13 mmol/L [facility] AST [Catalytic activity/Vol] 104 U/L High NINF - 34 U/L [facility] Bilirubin [Mass/Vol] 0.8 mg/dL NINF - 1.2 mg/dL [facility] Calcium [Mass/Vol] 9.5 mg/dL 8.4 - 10. 2 mg/dL [facility] Chloride [Moles/Vol] 105 mmol/L 98 - 10 7 mmol/L [facility] CO2 [Moles/Vol] 24 mmol/L 22 - 29 mmol/L [facility] Creatinine [Mass/Vol] 0.71 mg/dL Low 0.72 - 1.25 mg/dL [facility] GFR/1.73 sq M.predicted (S/P/Bld) [Vol rate/Area] - PINF [facility] Comment on above: Calculation based on the Chronic Kidney Disease Epidemiology Collaboration (CKD-EPI) equation refit without adjustment for race Glucose [Mass/Vol] 107 mg/dL High 74 - 100 mg/dL [facility] Potassium [Moles/Vol] 3.9 mmol/L 3.5 - 5.1 mmol/L [facility] Comment on above: Plasma potassium víctor ues may be up to 0.5 mmol/L lower than serum values. Protein [Mass/Vol] 8.2 g/dL 6.4 - 8.3 g/dL [facility] Sodium [Moles/Vol] 143 mmol/L 136 - 145 mmol/L [facility] Urea nitrogen [Mass/Vol] 3 mg/dL Low 8 - 21 mg/dL [facility] ED Provider Noteon ED Provider Note Normal [facility] ETHANOLon 06-12-2024 ETHANOL IN SER/PLAS 43 mg/dL High <10 [facility] Comment on above: Result Comment: ORDE R COMMENTS:PALLIATIVE CARE NURSE PRACTITIONER depression is seen >100 mg/dL.NOTE: This result is for medical treatment only. Analysis performed using non-forensic procedures. Performed By: #### L AB103, LAB17, LAB99, LAB46 ####Watch Assembler: SHENA GUERIN ([phone])[facility] ([facility])[address] [place] [address] Ethanol (Bld) [Mass/Vol]on 0 06-12-2024 Ethanol [Mass/Vol] 43 mg/dL High NINF - 10 mg/dL [facility] PALLIATIVE CARE NURSE PRACTITIONER depression is se en >100 mg/dL. NOTE: This result is for medical treatment only. Analysis performed using non-forensic procedures. [facility] LIPASEon 06-12-2024 Lipase [Catalytic activity/Vol] 48 U/L Normal <55 [facility] Comment on above: Performed By: #### L AB103, LAB17, LAB99, LAB46 ####Watch Assembler: SHENA GUERIN ([phone])[facility] ([facility])[address] Laboratory - Chemistry and C hemistry - challengeon 06-12-2024 Lipase [Catalytic activity/Vol] 48 U/L NINF - 55 U/L [facility] Magnesium [Mass/Vol] 2 mg/dL 1.6 - 2 .6 mg/dL [facility] MAGNESIUMon 06-12-2024 Magnesium [Mass/Vol] 2.0 mg/dL Normal 1.6-2.6 [facility] Comment on above: Result Comment: PIDEAD R COMMENTS:Higher values can be expected in females during menses. Performed By: #### L AB103, LAB17, LAB99, LAB46 ####Watch Assembler: SHENA GUERIN ([phone])[facility] ([facility])[address] Magnesium [Mass/Vol]on 06-12 Higher values can be expected in females during menses. [facility] No Panel Informationon 06-12 Interpretation and review of laboratory results Abnormal [facility] Interpretation and review of laboratory results Normal [facility] BASIC METABOLIC PANELon 05-11 Anion gap [Moles/Vol] 17 mmol/L High 3-13 [facility] Comment on above: Performed By: #### L AB20, LAB15, LAB99 ####Watch Assembler: SHENA GUERIN ([phone])[facility] ([facility])[address] [place] [address] [facility] Calcium [Mass/Vol] 9.7 mg/dL Normal 8.4-10.2 [facility] Comment on above: Performed By: #### Iggy AB20, LAB15, LAB99 ####Watch Assembler: SHENA GUERIN ([id number])[facility] ([facility])[address] [place] [address] [place] Chloride [Moles/Vol] 101 mmol/L Normal 98-107 [facility] Comment on above: Performed By: #### L AB20, LAB15, LAB99 ####Watch Assembler: SHENA GUERIN ([phone])[facility] ([facility])[address] CO2 [Moles/Vol] 22 mmol/L Normal 22-29 [facility] Comment on above: Performed By: #### Iggy AB20, LAB15, LAB99 ####Watch Assembler: SHENA GUERIN ([phone])[facility] ([facility])[address] [address] [place] Creatinine [Mass/Vol] 0.66 mg/dL Low 0.72-1.25 [facility] Comment on above: Performed By: #### L AB20, LAB15, LAB99 ####Watch Assembler: SHENA GUERIN ([phone])[facility] ([facility])[address] [address] [facility] GLOMERULAR FILTRATION RATE ML/MIN/1.73 SQ M.PREDICTED >90.0 Normal >60.0 [facility] Comment on above: Result Comment: Calc ulation based on the Chronic Kidney Disease Epidemiology Collaboration (CKD-EPI) equation refit without adjustment for race Performed By: #### L AB20, LAB15, LAB99 ####Watch Assembler: SHENA GUERIN ([phone])[facility] ([facility])[address] [phone] [place] Glucose [Mass/Vol] 127 mg/dL High 74-100 [facility] Comment on above: Performed By: #### L AB20, LAB15, LAB99 ####Watch Assembler: SHENA GUERIN ([phone])[facility] ([facility])[address] [place] [address] [facility] Potassium [Moles/Vol] 3.4 mmol/L Low 3.5-5.1 [facility] Comment on above: Result Comment: [facility] potassium values may be up to 0.5 mmol/L lower than serum values. Performed By: #### L AB20, LAB15, LAB99 ####Watch Assembler: SHENA GUERIN ([phone])[facility] ([facility])[address] [address] [facility] Sodium [Moles/Vol] 140 mmol/L Normal 136-145 [facility] Comment on above: Performed By: #### L AB20, LAB15, LAB99 ####Watch Assembler: SHENA GUERIN ([id number])[facility] ([facility])[address] [place] [address] [facility] Urea nitrogen [Mass/Vol] 7 mg/dL Low 8-21 [facility] Comment on above: Performed By: #### L AB20, LAB15, LAB99 ####Watch Assembler: SHENA GUERIN ([id number])[facility] ([facility])[address] [phone] [facility] Basic metabolic 1998 panelon 06-04-2024 Anion gap [Moles/Vol] 17 mmol/L High 3 - 13 mmol/L [facility] Calcium [Mass/Vol] 9.7 mg/dL 8.4 - 10. 2 mg/dL [facility] Chloride [Moles/Vol] 101 mmol/L 98 - 10 7 mmol/L [facility] CO2 [Moles/Vol] 22 mmol/L 22 - 29 mmol/L [facility] Creatinine [Mass/Vol] 0.66 mg/dL Low 0.72 - 1.25 mg/dL [facility] GFR/1.73 sq M.predicted (S/P/Bld) [Vol rate/Area] - PINF [facility] [employer] Comment on above: Calculation based on the Chronic Kidney Disease Epidemiology Collaboration (CKD-EPI) equation refit without adjustment for race Glucose [Mass/Vol] 127 mg/dL High 74 - 100 mg/dL [facility] [employer] Potassium [Moles/Vol] 3.4 mmol/L Low 3.5 - 5.1 mmol/L [facility] [employer] Comment on above: Plasma potassium víctor ues may be up to 0.5 mmol/L lower than serum values. Sodium [Moles/Vol] 140 mmol/L 136 - 145 mmol/L [facility] [employer] Urea nitrogen [Mass/Vol] 7 mg/dL Low 8 - 21 mg/dL [facility] [employer] CBC W Auto Differential pane l (Bld)on 06-04-2024 Basophils (Bld) [#/Vol] 0.1 10*3/uL 0.0 - 0.2 10*3/uL [facility] [employer] Basophils/100 WBC (Bld) 0.7 % 0.0 - 2.0 % [facility] [employer] Eosinophils (Bld) [#/Vol] 0.1 10*3/uL 0.0 - 0.5 10*3/uL [facility] [employer] Eosinophils/100 WBC (Bld) 1.5 % 0.0 - 6.0 % [facility] [employer] Erythrocyte distribution width (RBC) [Ratio] 14.6 % 11.5 - 15.0 % [facility] [employer] Hematocrit (Bld) [Volume fraction] 43.2 % 40.0 - 52.0 % [facility] [employer] Hemoglobin (Bld) [Mass/Vol] 14.2 g/dL 13.0 - 18.0 g/dL [facility] [employer] Immature granulocytes (Bld) [#/Vol] 0 10*3/uL NINF - 0.1 10*3/uL [facility] [employer] Immature granulocytes/100 WBC (Bld) 0.3 % 0.0 - 2.0 % [facility] [employer] Interpretation and review of laboratory results Normal [facility] [employer] Lymphocytes (Bld) [#/Vol] 1.9 10*3/uL 1.0 - 4.3 10*3/uL [facility] [employer] Lymphocytes/100 WBC (Bld) 26.3 % 15.0 - 45.0 % [facility] [employer] MCH (RBC) [Entitic mass] 30.6 pg 26.0 - 34.0 pg [facility] MCHC (RBC) [Mass/Vol] 32.9 % 30.5 - 36.0 % [facility] MCV (RBC) [Entitic vol] 93.1 fL 77.0 - 99.0 fL [facility] Monocytes (Bld) [#/Vol] 0.5 10*3/uL 0.0 - 0.9 10*3/uL [facility] Monocytes/100 WBC (Bld) 7.1 % 5.0 - 13.0 % [facility] Neutrophils (Bld) [#/Vol] 4.7 10*3/uL 1.8 - 7.5 10*3/uL [facility] Neutrophils/100 WBC (Bld) 64.1 % 38.0 - 82.0 % [facility] Nucleated RBC/100 WBC (Bld) [Ratio] 0 % [facility] Platelet mean volume (Bld) [Entitic vol] 10.1 fL 9.0 - 12.7 fL [facility] Comment on above: MPV is a calculated measurement using platelet volume ratio Platelets (Bld) [#/Vol] 281 10*3/uL 140 - 440 10*3/uL [facility] RBC (Bld) [#/Vol] 4.64 10*6/uL 4.40 - 5.9 0 10*6/uL [facility] WBC (Bld) [#/Vol] 7.3 10*3/uL 3.6 - 10.7 10*3/uL [facility] CBC WITH AUTO DIFFERENTIALon 06-04-2024 Basophils (Bld) [#/Vol] 0.1 10*3/uL Normal 0.0-0.2 [facility] Comment on above: Performed By: #### L [id number] ####Watch Assembler: SHENA GUERIN ([id number])[facility] [employer] ([facility])[address] [place] [address] Basophils/100 WBC (Bld) 0.7 % Normal 0.0-2.0 [facility] Comment on above: Performed By: #### L [id number] ####Watch Assembler: SHENA GUERIN ([id number])[facility] [employer] ([facility])[address] Eosinophils (Bld) [#/Vol] 0.1 10*3/uL Normal 0.0-0.5 [facility] Comment on above: Performed By: #### L [id number] ####Watch Assembler: SHENA GUERIN ([phone])[facility] ([facility])[address] Eosinophils/100 WBC (Bld) 1.5 % Normal 0.0-6.0 [facility] Comment on above: Performed By: #### L [id number] ####Watch Assembler: SHENA GUERIN ([id number])[facility] BEACHWOODTizor Systems [facility] ([facility])[address] Erythrocyte distribution width (RBC) [Ratio] 14.6 % Normal 11.5-15.0 [facility] Comment on above: Performed By: #### L [id number] ####Watch Assembler: SHENA GUERIN ([id number])[facility] [employer] [facility] ([facility])[address] Hematocrit (Bld) [Volume fraction] 43.2 % Normal 40.0-52.0 [facility] Comment on above: Performed By: #### L [id number] ####Watch Assembler: SHENA GUERIN ([id number])[facility]ODT[facility] Systems [facility] ([facility])[address] Hemoglobin (Bld) [Mass/Vol] 14.2 g/dL Normal 13.0-18.0 [facility] Comment on above: Performed By: #### L [id number] ####Watch Assembler: SHENA GUERIN ([id number])[facility] [employer] [facility] ([facility])[address] IMMATURE GRANS % 0.3 % Normal 0.0-2.0 [facility] Comment on above: Performed By: #### L [id number] ####Watch Assembler: SHENA CHAMPAGNEBETTY ([phone])[facility] [employer] [facility] ([facility])[address] IMMATURE GRANS ABSOLUTE 0.0 10*3/uL Normal <0.1 [facility] Comment on above: Performed By: #### L [id number] ####Watch Assembler: SHENA CHAMPAGNEBETTY ([id number])[facility] [place] [employer] [facility] ([facility])[address] Lymphocytes (Bld) [#/Vol] 1.9 10*3/uL Normal 1.0-4.3 [facility] Comment on above: Performed By: #### L [id number] ####Watch Assembler: SHENA CHAMPAGNEBETTY ([phone])[facility] [place] [employer] [facility] ([facility])[address] Lymphocytes/100 WBC (Bld) 26.3 % Normal 15.0-45.0 [facility] Comment on above: Performed By: #### L [id number] ####Watch Assembler: SHENA CHAMPAGNEBETTY ([id number])[facility] [place] [employer] [facility] ([facility])[address] MCH (RBC) [Entitic mass] 30.6 pg Normal 26.0-34.0 [facility] Comment on above: Performed By: #### L [id number] ####Watch Assembler: SHENA CHAMPAGNEBETTY ([phone])[facility] [place] [employer] [facility] ([facility])[address] MCHC 32.9 % Normal 30.5-36.0 [facility] Comment on above: Performed By: #### L [id number] ####Watch Assembler: SHENA GUERIN ([id number])[facility] [place] [employer] [facility] ([facility])[address] MCV (RBC) [Entitic vol] 93.1 fL Normal 77.0-99.0 S [facility] Comment on above: Performed By: #### L [id number] ####Watch Assembler: SHENA GUERIN ([id number])[facility] ([facility])[address] [place] [address] [facility] Monocytes (Bld) [#/Vol] 0.5 10*3/uL Normal 0.0-0.9 [facility] Comment on above: Performed By: #### L [id number] ####Watch Assembler: SHENA GUERIN ([phone])[facility] [place] [employer] [facility] ([facility])[address] [place] [address] [facility] Monocytes/100 WBC (Bld) 7.1 % Normal 5.0-13.0 S [facility] Comment on above: Performed By: #### L [id number] ####Watch Assembler: SHENA GUERIN ([phone])[facility] [place] [employer] [facility] ([facility])[address] [place] [address] [facility] NEUTROPHILS ABSOLUTE 4.7 10*3/uL Normal 1.8-7.5 [facility] Comment on above: Performed By: #### L [id number] ####Watch Assembler: SHENA GUERIN ([phone])[facility] [place] [employer] [facility] ([facility])[address] [place] [address] [place] Neutrophils/100 WBC (Bld) 64.1 % Normal 38.0-82.0 [facility] Comment on above: Performed By: #### L [id number] ####Watch Assembler: SHENA GUERIN ([id number])[facility] [place] [employer] [facility] ([facility])[address] [place] [address] [place] NRBC 0.0 /100 WBCs Normal 0.0-2.0 [facility] Comment on above: Performed By: #### L [id number] ####Watch Assembler: SHENA GUERIN ([id number])[facility] [employer] [facility] ([facility])[address] [place], [place] [id number] [place] [address] Platelet mean volume (Bld) [Entitic vol] 10.1 fL Normal 9.0-12.7 [facility] Comment on above: Result Comment: MPV is a calculated measurement using platelet volume ratio Performed By: #### L [id number] ####Watch Assembler: SHENA GUERIN ([id number])[facility] [employer] INCLUDES THE [facility]ILDR[facility]'S HOSPITALTizor Systems [facility] ([facility])[address] Platelets (Bld) [#/Vol] 281 10*3/uL Normal 140-440 [facility] Comment on above: Performed By: #### L [id number] ####Watch Assembler: SHENA GUERIN ([id number])[facility]ODTiz[facility] Systems [facility] ([facility])[address] RBC (Bld) [#/Vol] 4.64 10*6/uL Normal 4.40-5.90 [facility] Comment on above: Performed By: #### L [id number] ####Watch Assembler: SHENA GUERIN ([id number])[facility] [employer] INCLUDES THE [facility] HOSPITALRiparAutOnlineS ([facility])[address] WBC (Bld) [#/Vol] 7.3 10*3/uL Normal 3.6-10.7 [facility] Comment on above: Performed By: #### L [id number] ####Watch Assembler: SHENA GUERIN ([id number])[facility] [employer] INCLUDES THE [facility] HOSPITALRiparAutOnlineS ([facility])[address] ED Nursing Noteon 06-04-2024 ED Nursing Note Pt seen recently, dx pancreatitis, sts sx ongoing with abd pain that worsens with eating/drinking, N/V. Referred to ER by Negative resp distress, positive full sentences, negative diaphoresis, positive steady gait. Times are approximate. Normal [facility] ED Provider Noteon ED Provider Note Normal [facility] HEPATIC FUNCTION PANELon Albumin [Mass/Vol] 3.9 g/dL Normal 3.5-5.0 [facility] Comment on above: Performed By: #### L AB20, LAB15, LAB99 ####Watch Assembler: SHENA CHAMPAGNEBETTY ([phone])[facility] ([facility])[address] [place] [address] [place] ALP [Catalytic activity/Vol] 226 U/L High 40-150 [facility] Comment on above: Performed By: #### L AB20, LAB15, LAB99 ####Watch Assembler: SHENA GUERIN ([phone])[facility] ([facility])[address] [place] [address] [place] ALT [Catalytic activity/Vol] 73 U/L High <40 [facility] Comment on above: Performed By: #### L AB20, LAB15, LAB99 ####Watch Assembler: SHENA GUERIN ([phone])[facility] ([facility])[address] [place] [address] [place] AST [Catalytic activity/Vol] 104 U/L High <34 [facility] Comment on above: Performed By: #### L AB20, LAB15, LAB99 ####Watch Assembler: SHENA GUERIN ([phone])[facility] ([facility])[address] [place] [address] [place] Bilirubin [Mass/Vol] 1.4 mg/dL High <1.2 [facility] Comment on above: Performed By: #### L AB20, LAB15, LAB99 ####Watch Assembler: SHENA GUERIN ([id number])[facility] ([facility])[address] [place] [address] [place] Bilirubin.indirect [Mass/Vol] 0.9 mg/dL High <0.5 [facility] Comment on above: Performed By: #### L AB20, LAB15, LAB99 ####Watch Assembler: SHENA GUERIN ([phone])[facility] ([facility])[address] [place] [address] [facility] Protein [Mass/Vol] 8.3 g/dL Normal 6.4-8.3 [facility] Comment on above: Result Comment: Seru m protein values are higher than plasma values. Samples from recumbent persons are lower by up to 0.5 g/dL as compared to ambulatory persons. After 60 years values are lower by up to 0.2 g/dL. Performed By: #### L AB20, LAB15, LAB99 ####Watch Assembler: SHENA DEL ROSARIOHAMIDA ([id number])[facility] ([facility])[address] [place] [address] [facility] Hepatic function 2000 panelo n 06-04-2024 Albumin [Mass/Vol] 3.9 g/dL 3.5 - 5.0 g/dL [facility] ALP [Catalytic activity/Vol] 226 U/L High 40 - 150 U/L [facility] ALT [Catalytic activity/Vol] 73 U/L High NINF - 40 U/L [facility] AST [Catalytic activity/Vol] 104 U/L High NINF - 34 U/L [facility] Bilirubin [Mass/Vol] 1.4 mg/dL High [facility].2 mg/dL [facility] Bilirubin.conjugated [Mass/Vol] 0.9 mg/dL High [facility] - 0.5 mg/dL [facility] Protein [Mass/Vol] 8.3 g/dL 6.4 - 8.3 g/dL [facility] Comment on above: Serum protein values are higher than plasma values. Samples from recumbent persons are lower by up to 0.5 g/dL as compared to ambulatory persons. After 60 years values are lower by up to 0.2 g/dL. LIPASEon 06-04-2024 Lipase [Catalytic activity/Vol] 117 U/L High <55 [facility] Comment on above: Performed By: #### L AB20, LAB15, LAB99 ####Watch Assembler: SHENA GUERIN ([phone])[facility] ([facility])[address] [place] [address] [facility] Laboratory - Chemistry and C hemistry - challengeon 06-04-2024 Lipase [Catalytic activity/Vol] 117 U/L High NINF - 55 U/L [facility] No Panel Informationon 06-04 Interpretation and review of laboratory results Abnormal [facility] 36on 06-03-2024 36 Normal [facility] 36 Normal [facility] 36 Normal [facility] 37on 06-01-2024 37 --complete alcohol cessation --tobacco cessation --MRI abdomen --blood work to be completed --follow up after above is completed Normal [facility] Progress Noteon 06-01-2024 Progress Note Normal [facility] CBC W Auto Differential pane l (Bld)on 05-30-2024 Basophils (Bld) [#/Vol] 0.1 10*3/uL 0.0 - 0.2 10*3/uL [facility] Basophils/100 WBC (Bld) 0.7 % 0.0 - 2.0 % [facility] Eosinophils (Bld) [#/Vol] 0.1 10*3/uL 0.0 - 0.5 10*3/uL [facility] Eosinophils/100 WBC (Bld) 1.3 % 0.0 - 6.0 % [facility] Erythrocyte distribution width (RBC) [Ratio] 14.6 % 11.5 - 15.0 % [facility] [place] Hematocrit (Bld) [Volume fraction] 40.4 % 40.0 - 52.0 % [facility] Hemoglobin (Bld) [Mass/Vol] 13.5 g/dL 13.0 - 18.0 g/dL [facility] Immature granulocytes (Bld) [#/Vol] 0 10*3/uL NINF - 0.1 10*3/uL [facility] [place] [facility] Immature granulocytes/100 WBC (Bld) 0.3 % 0.0 - 2.0 % [facility] Interpretation and review of laboratory results Normal [facility] Lymphocytes (Bld) [#/Vol] 2.5 10*3/uL 1.0 - 4.3 10*3/uL [facility] Lymphocytes/100 WBC (Bld) 33 % 15.0 - 45.0 % [facility] MCH (RBC) [Entitic mass] 30.3 pg 26.0 - 34.0 pg [facility] MCHC (RBC) [Mass/Vol] 33.4 % 30.5 - 36.0 % [facility] MCV (RBC) [Entitic vol] 90.8 fL 77.0 - 99.0 fL [facility] Monocytes (Bld) [#/Vol] 0.7 10*3/uL 0.0 - 0.9 10*3/uL [facility] Monocytes/100 WBC (Bld) 8.8 % 5.0 - 13.0 % [facility] Neutrophils (Bld) [#/Vol] 4.2 10*3/uL 1.8 - 7.5 10*3/uL [facility] Neutrophils/100 WBC (Bld) 55.9 % 38.0 - 82.0 % [facility] Nucleated RBC/100 WBC (Bld) [Ratio] 0 % [facility] Platelet mean volume (Bld) [Entitic vol] 10.2 fL 9.0 - 12.7 fL [facility] Comment on above: MPV is a calculated measurement using platelet volume ratio Platelets (Bld) [#/Vol] 234 10*3/uL 140 - 440 10*3/uL [facility] RBC (Bld) [#/Vol] 4.45 10*6/uL 4.40 - 5.9 0 10*6/uL [facility] WBC (Bld) [#/Vol] 7.5 10*3/uL 3.6 - 10.7 10*3/uL [facility] CBC WITH AUTO DIFFERENTIALon 05-30-2024 Basophils (Bld) [#/Vol] 0.1 10*3/uL Normal 0.0-0.2 [facility] Comment on above: Performed By: #### L [id number] ####Watch Assembler: SHENA GUERIN ([phone])[facility] ([facility])[address] [place] [address] Basophils/100 WBC (Bld) 0.7 % Normal 0.0-2.0 [facility] Comment on above: Performed By: #### L [id number] ####Watch Assembler: SHENA GUERIN ([phone])[facility] [place] [facility])[address] Eosinophils (Bld) [#/Vol] 0.1 10*3/uL Normal 0.0-0.5 [facility] Comment on above: Performed By: #### L [id number] ####Watch Assembler: SHENA GUERIN ([phone])[facility] ([facility])[address] Eosinophils/100 WBC (Bld) 1.3 % Normal 0.0-6.0 [facility] Comment on above: Performed By: #### L [id number] ####Watch Assembler: SHENA GUREIN ([id number])[facility]ODTiz[facility] Systems [facility] ([facility])[address] Erythrocyte distribution width (RBC) [Ratio] 14.6 % Normal 11.5-15.0 [facility] Comment on above: Performed By: #### L [id number] ####Watch Assembler: SHENA GUERIN ([id number])[facility] ([facility])[address] Hematocrit (Bld) [Volume fraction] 40.4 % Normal 40.0-52.0 [facility] Comment on above: Performed By: #### L [id number] ####Watch Assembler: SHENA GUERIN ([id number])[facility] ([facility])[address] Hemoglobin (Bld) [Mass/Vol] 13.5 g/dL Normal 13.0-18.0 [facility] Comment on above: Performed By: #### L [id number] ####Watch Assembler: SHENA GUERIN ([phone])[facility] ([facility])[address] IMMATURE GRANS % 0.3 % Normal 0.0-2.0 [facility] Comment on above: Performed By: #### L [id number] ####Watch Assembler: SHENA GUERIN ([id number])[facility] [place] [employer] [facility] ([facility])[address] IMMATURE GRANS ABSOLUTE 0.0 10*3/uL Normal <0.1 [facility] Comment on above: Performed By: #### L [id number] ####Watch Assembler: SHENA GUERIN ([id number])[facility] [place] [facility] ([facility])[address] Lymphocytes (Bld) [#/Vol] 2.5 10*3/uL Normal 1.0-4.3 [facility] Comment on above: Performed By: #### L [id number] ####Watch Assembler: SHENA GUERIN ([id number])[facility] [place] [employer] [facility] ([facility])[address] Lymphocytes/100 WBC (Bld) 33.0 % Normal 15.0-45.0 [facility] Comment on above: Performed By: #### L [id number] ####Watch Assembler: SHENA GUERIN ([id number])[facility] [place] [employer] [facility] ([facility])[address] MCH (RBC) [Entitic mass] 30.3 pg Normal 26.0-34.0 [facility] Comment on above: Performed By: #### L [id number] ####Watch Assembler: SHENA GUERIN ([id number])[facility] [place] [employer] [facility] ([facility])[address] MCHC 33.4 % Normal 30.5-36.0 [facility] Comment on above: Performed By: #### L [id number] ####Watch Assembler: SHENA GUERIN ([phone])[facility] [place] [employer] [facility] ([facility])[address] [place] [address] [place] MCV (RBC) [Entitic vol] 90.8 fL Normal 77.0-99.0 [facility] Comment on above: Performed By: #### L [id number] ####Watch Assembler: SHENA GUERIN ([id number])[facility] ([facility])[address] [place] [address] [facility] Monocytes (Bld) [#/Vol] 0.7 10*3/uL Normal 0.0-0.9 [facility] Comment on above: Performed By: #### L [id number] ####Watch Assembler: SHENA GUERIN ([id number])[facility] ([facility])[address] Monocytes/100 WBC (Bld) 8.8 % Normal 5.0-13.0 [facility] Comment on above: Performed By: #### L [id number] ####Watch Assembler: SHENA GUERIN ([phone])[facility] [place] [facility] ([facility])[address] [place] [address] [place] NEUTROPHILS ABSOLUTE 4.2 10*3/uL Normal 1.8-7.5 [facility] Comment on above: Performed By: #### L [id number] ####Watch Assembler: SHENA GUERIN ([phone])[facility] [place] [facility] ([facility])[address] [place] [address] [place] Neutrophils/100 WBC (Bld) 55.9 % Normal 38.0-82.0 [facility] Comment on above: Performed By: #### L [id number] ####Watch Assembler: SHENA GUERIN ([phone])[facility] [place] [facility] ([facility])[address] [place] [address] [place] NRBC 0.0 /100 WBCs Normal 0.0-2.0 [facility] Comment on above: Performed By: #### L [id number] ####Watch Assembler: SHENA GUERIN ([id number])[facility] ([facility])[address] [place], [place] [address] [place] [address] Platelet mean volume (Bld) [Entitic vol] 10.2 fL Normal 9.0-12.7 [facility] Comment on above: Result Comment: MPV is a calculated measurement using platelet volume ratio Performed By: #### L [id number] ####Watch Assembler: SHENA GUERIN ([id number])[facility] ([facility])[address] Platelets (Bld) [#/Vol] 234 10*3/uL Normal 140-440 [facility] Comment on above: Performed By: #### L [id number] ####Watch Assembler: SHENA GUERIN ([id number])[facility] [employer] ([facility])[address] RBC (Bld) [#/Vol] 4.45 10*6/uL Normal 4.40-5.90 [facility] Comment on above: Performed By: #### L [id number] ####Watch Assembler: SHENA GUERIN ([id number])[facility] [employer] ([facility])[address] WBC (Bld) [#/Vol] 7.5 10*3/uL Normal 3.6-10.7 [facility] Comment on above: Performed By: #### L [id number] ####Watch Assembler: SHENA GUERIN ([phone])[facility] [employer] ([facility])[address] COMPLETE URINALYSISon 2024 BACTERIA (#/HPF) IN URINE Negative Normal Negative [facility] Comment on above: Performed By: #### L [id number] ####Watch Assembler: SHENA GUERIN ([phone])[facility] [employer] ([facility])[address] [place] [address] [facility] BILIRUBIN, TOTAL PRESENCE IN URINE Negative Normal Negative [facility] Comment on above: Performed By: #### L [id number] ####Watch Assembler: SHENA UNDERWOODCER ([id number])[facility] ([facility])[address] [place] [address] [facility] Clarity (U) Clear Normal Clear [facility] Comment on above: Performed By: #### L [id number] ####Watch Assembler: SHENA GUERIN ([id number])[facility] ([facility])[address] [place], [place] [address] [facility] Color (U) Yellow Normal Lt. Yellow [facility] Comment on above: Performed By: #### L [id number] ####Watch Assembler: SHENA CHAMPAGNEBETTY ([id number])[facility] ([facility])[address] GLUCOSE (MG/DL) IN URINE Normal Normal Normal (<70) [facility] Comment on above: Performed By: #### L [id number] ####Watch Assembler: SHENA GUERIN ([id number])[facility] ([facility])[address] [place] [address] [place] HEMOGLOBIN PRESENCE IN URINE Negative Normal Negative [facility] Comment on above: Performed By: #### L [id number] ####Watch Assembler: SHENA GUERIN ([id number])[facility] ([facility])[address] [place] [address] [place] Ketones Ql (U) Trace Abnormal Negative [facility] Comment on above: Performed By: #### L [id number] ####Watch Assembler: SHENA GUERIN ([phone])[facility] ([facility])[address] [place] [address] [place] LEUKOCYTE ESTERASE PRESENCE IN URINE BY TEST STRIP Negative Normal Negative [facility] Comment on above: Performed By: #### L [id number] ####Watch Assembler: SHENAPILAR GUERIN ([phone])[facility] [place] [facility] ([facility])[address] [place] [address] [place] MUCUS (#/LPF) IN URINE SEDIMENT Moderate Abnormal Negative [facility] Comment on above: Performed By: #### L [id number] ####Watch Assembler: SHENA APOORVA ([id number])[facility] [place] [facility] ([facility])[address] NITRITE PRESENCE IN URINE Negative Normal Negative [facility] Comment on above: Performed By: #### L [id number] ####Watch Assembler: SHENAPILAR GUERIN ([id number])[facility] [place] [facility] ([facility])[address] pH (U) 7.0 [pH] Normal 5.0-8.0 [facility] Comment on above: Performed By: #### L [id number] ####Watch Assembler: SHENAPILAR GUERIN ([id number])[facility] [place] [facility] ([facility])[address] Protein (U) [Mass/Vol] 10 mg/dL Abnormal Negative [facility] Comment on above: Performed By: #### L [id number] ####Watch Assembler: SHENA APOORVA ([id number])[facility] ([facility])[address] [place] [address] [place] RBC (#/HPF) IN URINE SEDIMENT 0-2 Normal 0-2 [facility] Comment on above: Performed By: #### L [id number] ####Watch Assembler: SHENA APOORVA ([phone])[facility] ([facility])[address] Specific gravity (U) [Rel density] 1.013 Normal 1.005-1.030 [facility] Comment on above: Performed By: #### L [id number] ####Watch Assembler: SHENA GUERIN ([id number])[facility] ([facility])[address] Specimen volume (U) 12 mL Normal [facility] Comment on above: Performed By: #### L [id number] ####Watch Assembler: SHENA CHAMPAGNEBETTY ([phone])[facility] ([facility])[address] SQUAMOUS EPITHELIAL CELLS (#/HPF) IN URINE SEDIMENT Negative Normal 3-5 [facility] Comment on above: Performed By: #### L [id number] ####Watch Assembler: SHENA GUERIN ([id number])[facility] ([facility])[address] UROBILINOGEN (MG/DL) IN URINE 2 mg/dL Abnormal Normal (0-1) [facility] Comment on above: Performed By: #### L [id number] ####Watch Assembler: SHENA GUERIN ([id number])[facility] ([facility])[address] WBC (LEUKOCYTE) (#/HPF) IN URINE SEDIMENT 0-2 Normal 0-5 [facility] Comment on above: Performed By: #### L [id number] ####Watch Assembler: SHENA GUERIN ([id number])[facility] ([facility])[address] COMPREHENSIVE METABOLIC PANE Rylan 05-30-2024 Albumin [Mass/Vol] 3.7 g/dL Normal 3.5-5.0 [facility] Comment on above: Performed By: #### L AB99, LAB17 ####Watch Assembler: SHENA GUERIN ([phone])[facility] ([facility])[address] ALP [Catalytic activity/Vol] 188 U/L High 40-150 [facility] Comment on above: Performed By: #### L AB99, LAB17 ####Watch Assembler: SHENA GUERIN ([phone])[facility] ([facility])[address] [place] [address] [place] ALT [Catalytic activity/Vol] 89 U/L High <40 [facility] Comment on above: Performed By: #### L AB99, LAB17 ####Watch Assembler: SHENA GUERIN ([phone])[facility] ([facility])[address] [place] [address] [facility] Anion gap [Moles/Vol] 14 mmol/L High 3-13 [facility] Comment on above: Performed By: #### L AB99, LAB17 ####Watch Assembler: SHENA GUERIN ([phone])[facility] ([facility])[address] [place] [address] [place] AST [Catalytic activity/Vol] 132 U/L High <34 [facility] Comment on above: Performed By: #### L CLARISSE, LAB17 ####Watch Assembler: SHENA GUERIN ([phone])[facility] ([facility])[address] [place] [address] [place] Bilirubin [Mass/Vol] 1.3 mg/dL High <1.2 [facility] Comment on above: Performed By: #### L AB99, LAB17 ####Watch Assembler: SHENA GUERIN ([id number])[facility] ([facility])[address] [place] [address] [place] Calcium [Mass/Vol] 9.1 mg/dL Normal 8.4-10.2 [facility] Comment on above: Performed By: #### L AB99, LAB17 ####Watch Assembler: SHENA GUERIN ([phone])[facility] ([facility])[address] [place] [address] [place] Chloride [Moles/Vol] 103 mmol/L Normal 98-107 [facility] Comment on above: Performed By: #### L AB99, LAB17 ####Watch Assembler: SHENA GUERIN ([phone])[facility] ([facility])[address] [place] [address] [facility] CO2 [Moles/Vol] 20 mmol/L Low 22-29 [facility] Comment on above: Performed By: #### L AB99, LAB17 ####Watch Assembler: SHENA GUERIN ([id number])[facility] ([facility])[address] Creatinine [Mass/Vol] 0.58 mg/dL Low 0.72-1.25 [facility] Comment on above: Performed By: #### L 99, LAB17 ####Watch Assembler: SHENA GUERIN ([id number])[facility] ([facility])[address] [place] [address] GLOMERULAR FILTRATION RATE ML/MIN/1.73 SQ M.PREDICTED >90.0 Normal >60.0 [facility] Comment on above: Result Comment: Calc ulation based on the Chronic Kidney Disease Epidemiology Collaboration (CKD-EPI) equation refit without adjustment for race Performed By: #### L AB99, LAB17 ####Watch Assembler: SHENA GUERIN ([phone])[facility] ([facility])[address] Glucose [Mass/Vol] 100 mg/dL Normal 74-100 [facility] Comment on above: Performed By: #### L AB99, LAB17 ####Watch Assembler: SHENA GUERIN ([id number])[facility] ([facility])[address] [place] [address] [facility] Potassium [Moles/Vol] 3.3 mmol/L Low 3.5-5.1 [facility] Comment on above: Result Comment: Plas ma potassium values may be up to 0.5 mmol/L lower than serum values. Performed By: #### L AB99, LAB17 ####Watch Assembler: SHENA APOORVA ([id number])[facility] ([facility])[address] Protein [Mass/Vol] 7.5 g/dL Normal 6.4-8.3 [facility] Comment on above: Performed By: #### L AB99, LAB17 ####Watch Assembler: SHENA DEL ROSARIOHAMIDA ([id number])[facility] ([facility])[address] [place] [address] [facility] Sodium [Moles/Vol] 137 mmol/L Normal 136-145 [facility] Comment on above: Performed By: #### L AB99, LAB17 ####Watch Assembler: SHENA DEL ROSARIOHAMIDA ([phone])[facility] ([facility])[address] [place] [address] Urea nitrogen [Mass/Vol] 4 mg/dL Low 8-21 [facility] Comment on above: Performed By: #### L AB99, LAB17 ####Watch Assembler: SHENA DEL ROSARIOHAMIDA ([id number])[facility] ([facility])[address] [place] [address] CT ABDOMEN PELVIS WO IV CONT RASTon 05-30-2024 CT ABDOMEN PELVIS WO IV CONTRAST Normal [facility] CT Abdomen and Pelvis WO con traston 05-30-2024 1. Peripancreatic haziness is redemonstrated, which can be seen in the setting of acute pancreatitis. Correlation with appropriate laboratory values is recommended. 2. Hepatomegaly and hepatic steatosis. Report Dictated on Electronically Signed By: Hitesh Nation MD Electronically Signed Date/Time: 05/30/2024 11:03 PM [facility] Patient Name: RORO CLAIRE [...] fracture or destructive osseous lesion is identified. [facility] Hitesh Nation MD - 05/30/2024 [...] Electronically Signed Date/Time: 05/30/2024 11:03 PM EDT [facility] [employer] Radiology Study observation (narrative) WebMD CT Abdomen and Pelvis WO con trastOrdered By: Hitesh Nation on 05-30-2024 Web[employer] Work Phone: Comprehensive metabolic 1998 panelon 05-30-2024 Albumin [Mass/Vol] 3.7 g/dL 3.5 - 5.0 g/dL [facility] ALP [Catalytic activity/Vol] 188 U/L High 40 - 150 U/L [facility] ALT [Catalytic activity/Vol] 89 U/L High NINF - 40 U/L [facility] Anion gap [Moles/Vol] 14 mmol/L High 3 - 13 mmol/L [facility] AST [Catalytic activity/Vol] 132 U/L High NINF - 34 U/L [facility] Bilirubin [Mass/Vol] 1.3 mg/dL High NINF - 1.2 mg/dL [facility] Calcium [Mass/Vol] 9.1 mg/dL 8.4 - 10. 2 mg/dL [facility] Chloride [Moles/Vol] 103 mmol/L 98 - 10 7 mmol/L [facility] CO2 [Moles/Vol] 20 mmol/L Low 22 - 29 mmol/L [facility] Creatinine [Mass/Vol] 0.58 mg/dL Low 0.72 - 1.25 mg/dL [facility] GFR/1.73 sq M.predicted (S/P/Bld) [Vol rate/Area] - PINF [facility] Comment on above: Calculation based on the Chronic Kidney Disease Epidemiology Collaboration (CKD-EPI) equation refit without adjustment for race Glucose [Mass/Vol] 100 mg/dL 74 - 100 mg/dL [facility] Interpretation and review of laboratory results Abnormal [facility] Potassium [Moles/Vol] 3.3 mmol/L Low 3.5 - 5.1 mmol/L [facility] Comment on above: Plasma potassium víctor ues may be up to 0.5 mmol/L lower than serum values. Protein [Mass/Vol] 7.5 g/dL 6.4 - 8.3 g/dL [facility] Sodium [Moles/Vol] 137 mmol/L 136 - 145 mmol/L [facility] Urea nitrogen [Mass/Vol] 4 mg/dL Low 8 - 21 mg/dL [facility] ED Nursing Noteon 05-30-2024 ED Nursing Note Resp even and unlabored. Able to speak in full sentences. Ambulates without difficulty. Pt c/o left flank pain x 5days. Denies N/V/D, fevers, dysuria. Normal [facility] ED Provider Noteon ED Provider Note Normal [facility] LIPASEon 05-30-2024 Lipase [Catalytic activity/Vol] 37 U/L Normal <55 [facility] Comment on above: Performed By: #### L AB99, LAB17 ####Watch Assembler: SHENA GUERIN ([phone])[facility] ([facility])[address] Laboratory - Chemistry and C hemistry - challengeon 05-30-2024 Lipase [Catalytic activity/Vol] 37 U/L NINF - 55 U/L [facility] Lipase [Catalytic activity/V ol]on 05-30-2024 Interpretation and review of laboratory results Normal [facility] No Panel Informationon 05-30 [facility] Urinalysis complete panel (U )Ordered By: Silvia Prince on 05-30-2024 Bacteria LM.HPF (Urine sed) [#/Area] Negative Negative /HPF [facility] Bilirubin Ql (U) Negative Negative mg/dL [facility] Clarity (U) Clear Clear [facility] Color (U) Yellow Lt. Yellow [facility] Epithelial cells.squamous LM.HPF (Urine sed) [#/Area] Negative [facility] Glucose Ql (U) Normal Normal (<70) mg/dL [facility] Hemoglobin Ql (U) Negative Negative mg/dL [facility] Interpretation and review of laboratory results Abnormal [facility] Ketones (U) [Mass/Vol] Trace Abnormal Negat chan mg/dL [facility] Leukocyte esterase Test strip Ql (U) Negative Negative Teofilo/uL [facility] Mucus LM.HPF (Urine sed) [#/Area] Moderate Abnormal Negative /LPF [facility] Nitrite Ql (U) Negative Negative [facility] pH (U) 7.0 [pH] 5.0 - 8.0 pH [facility] Protein (U) [Mass/Vol] 10 mg/dL Abnormal Negative [facility] RBC LM.HPF (Urine sed) [#/Area] 0-2 [facility] Specific gravity (U) [Rel density] 1.013 1.005 - 1.030 [facility] Urobilinogen (U) [Mass/Vol] 2 mg/dL Abnormal Normal (0-1) [facility] Volume, Urine 12 mL [facility] WBC LM.HPF (Urine sed) [#/Area] 0-2 [facility] BASIC METABOLIC PANELon 04- Anion gap [Moles/Vol] 12 mmol/L Normal 3-13 [facility] Comment on above: Performed By: #### L AB20, LAB99, LAB15 ####Watch Assembler: SHENA GUERIN ([id number])[facility]ON[facility]yler [place] (SBHLAB)[address] Calcium [Mass/Vol] 9.5 mg/dL Normal 8.4-10.2 [facility] Comment on above: Performed By: #### L AB20, LAB99, LAB15 ####Watch Assembler: SHENA GUERIN ([phone])[facility]ONKyler [place] (SBHLAB)[address] Chloride [Moles/Vol] 102 mmol/L Normal 98-107 [facility] Comment on above: Performed By: #### L AB20, LAB99, LAB15 ####Watch Assembler: SHENA GUERIN ([id number])[facility]ONKyler [place] (SBHLAB)[address] CO2 [Moles/Vol] 24 mmol/L Normal 22-29 [facility] Comment on above: Performed By: #### L AB20, LAB99, LAB15 ####Watch Assembler: SHENA GUERIN ([id number])[facility]ON[facility]yler OLLIECAPRICEN (SBHLAB)[address] Creatinine [Mass/Vol] 0.69 mg/dL Low 0.72-1.25 [facility] Comment on above: Performed By: #### L AB20, LAB99, LAB15 ####Watch Assembler: SHENA GUERIN ([phone])[facility] [place]IC[place] (SBHLAB)[address] GLOMERULAR FILTRATION RATE ML/MIN/1.73 SQ M.PREDICTED >90.0 Normal >60.0 [facility] Comment on above: Result Comment: Calc ulation based on the Chronic Kidney Disease Epidemiology Collaboration (CKD-EPI) equation refit without adjustment for race Performed By: #### L AB20, LAB99, LAB15 ####Watch Assembler: SHENA GUERIN ([id number])[facility] [place]ON[facility] (SBHLAB)[address] Glucose [Mass/Vol] 148 mg/dL High 74-100 [facility] Comment on above: Performed By: #### L AB20, LAB99, LAB15 ####Watch Assembler: SHENA GUERIN ([phone])[facility] (SBHLAB)[address] Potassium [Moles/Vol] 3.9 mmol/L Normal 3.5-5.1 [facility] Comment on above: Result Comment: [facility] potassium values may be up to 0.5 mmol/L lower than serum values. Performed By: #### L AB20, LAB99, LAB15 ####Watch Assembler: SHENA GUERIN ([id number])[facility] [place]ON[facility] (SBHLAB)[address] Sodium [Moles/Vol] 138 mmol/L Normal 136-145 [facility] Comment on above: Performed By: #### L AB20, LAB99, LAB15 ####Watch Assembler: SHENA GUERIN ([id number])[facility] (SBHLAB)[address] Urea nitrogen [Mass/Vol] 4 mg/dL Low 8-21 [facility] Comment on above: Performed By: #### L AB20, LAB99, LAB15 ####Watch Assembler: SHENA GUERIN ([id number])[facility] (SBHLAB)[address] Basic metabolic 1998 panelon 05-22-2024 Anion gap [Moles/Vol] 12 mmol/L 3 - 13 mmol/L [facility] Calcium [Mass/Vol] 9.5 mg/dL 8.4 - 10. 2 mg/dL [facility] Chloride [Moles/Vol] 102 mmol/L 98 - 10 7 mmol/L [facility] [employer] CO2 [Moles/Vol] 24 mmol/L 22 - 29 mmol/L [facility] [employer] Creatinine [Mass/Vol] 0.69 mg/dL Low 0.72 - 1.25 mg/dL [facility] [employer] GFR/1.73 sq M.predicted (S/P/Bld) [Vol rate/Area] - PINF [facility] Comment on above: Calculation based on the Chronic Kidney Disease Epidemiology Collaboration (CKD-EPI) equation refit without adjustment for race Glucose [Mass/Vol] 148 mg/dL High 74 - 100 mg/dL [facility] Potassium [Moles/Vol] 3.9 mmol/L 3.5 - 5.1 mmol/L [facility] Comment on above: Plasma potassium víctor ues may be up to 0.5 mmol/L lower than serum values. Sodium [Moles/Vol] 138 mmol/L 136 - 145 mmol/L [facility] [employer] Urea nitrogen [Mass/Vol] 4 mg/dL Low 8 - 21 mg/dL [facility] [employer] CBC W Auto Differential pane l (Bld)on 05-22-2024 Basophils (Bld) [#/Vol] 0 10*3/uL 0.0 - 0.2 10*3/uL [facility] Basophils/100 WBC (Bld) 0.3 % 0.0 - 2.0 % [facility] Eosinophils (Bld) [#/Vol] 0.1 10*3/uL 0.0 - 0.5 10*3/uL [facility] Eosinophils/100 WBC (Bld) 0.8 % 0.0 - 6.0 % [facility] Erythrocyte distribution width (RBC) [Ratio] 14.6 % 11.5 - 15.0 % [facility] Hematocrit (Bld) [Volume fraction] 42.6 % 40.0 - 52.0 % [facility] Hemoglobin (Bld) [Mass/Vol] 14.3 g/dL 13.0 - 18.0 g/dL [facility] [employer] Immature granulocytes (Bld) [#/Vol] 0 10*3/uL NINF - 0.1 10*3/uL [facility] [employer] Immature granulocytes/100 WBC (Bld) 0.2 % 0.0 - 2.0 % [facility] Interpretation and review of laboratory results Normal [facility] Lymphocytes (Bld) [#/Vol] 1 10*3/uL 1.0 - 4.3 10*3/uL [facility] Lymphocytes/100 WBC (Bld) 16 % 15.0 - 45.0 % [facility] MCH (RBC) [Entitic mass] 30.4 pg 26.0 - 34.0 pg [facility] MCHC (RBC) [Mass/Vol] 33.6 % 30.5 - 36.0 % [facility] MCV (RBC) [Entitic vol] 90.4 fL 77.0 - 99.0 fL [facility] Monocytes (Bld) [#/Vol] 0.4 10*3/uL 0.0 - 0.9 10*3/uL [facility] Monocytes/100 WBC (Bld) 6 % 5.0 - 13.0 % [facility] Neutrophils (Bld) [#/Vol] 4.8 10*3/uL 1.8 - 7.5 10*3/uL [facility] Neutrophils/100 WBC (Bld) 76.7 % 38.0 - 82.0 % [facility] Nucleated RBC/100 WBC (Bld) [Ratio] 0 % [facility] Platelet mean volume (Bld) [Entitic vol] 10.5 fL 9.0 - 12.7 fL [facility] Platelets (Bld) [#/Vol] 144 10*3/uL 140 - 440 10*3/uL [facility] RBC (Bld) [#/Vol] 4.71 10*6/uL 4.40 - 5.9 0 10*6/uL [facility] WBC (Bld) [#/Vol] 6.3 10*3/uL 3.6 - 10.7 10*3/uL [facility] CBC WITH AUTO DIFFERENTIALon 05-22-2024 Basophils (Bld) [#/Vol] 0.0 10*3/uL Normal 0.0-0.2 [facility] Comment on above: Performed By: #### L [id number] ####Watch Assembler: SHENA GUERIN ([phone])[facility] (SBAB)[address] [place] [address] Basophils/100 WBC (Bld) 0.3 % Normal 0.0-2.0 [facility] Comment on above: Performed By: #### L [id number] ####Watch Assembler: SHENAPILAR DEL ROSARIOBeckieBETTY ([phone])[facility] [place] (SBHLAB)[address] Eosinophils (Bld) [#/Vol] 0.1 10*3/uL Normal 0.0-0.5 [facility] Comment on above: Performed By: #### L [id number] ####Watch Assembler: SHENA APOORVA ([phone])[facility]BNEW MEX[facility] L[facility]N (SBHLAB)[address] Eosinophils/100 WBC (Bld) 0.8 % Normal 0.0-6.0 [facility] Comment on above: Performed By: #### L [id number] ####Watch Assembler: SHENAPILAR GUERIN ([phone])[facility] BARBNEW MEXICO [facility]N ([facility])[address] [place] [address] Erythrocyte distribution width (RBC) [Ratio] 14.6 % Normal 11.5-15.0 [facility] Comment on above: Performed By: #### L [id number] ####Watch Assembler: SHENA APOORVA ([phone])[facility] [place] ([facility]AB)[address] [place] [address] Hematocrit (Bld) [Volume fraction] 42.6 % Normal 40.0-52.0 [facility] Comment on above: Performed By: #### L [id number] ####Watch Assembler: SHENA CHAMPAGNEBETTY ([phone])[facility] BARBNEW MEX[facility] L[facility] VEGASN (SBAB)[address] Hemoglobin (Bld) [Mass/Vol] 14.3 g/dL Normal 13.0-18.0 [facility] Comment on above: Performed By: #### L [id number] ####Watch Assembler: SHENA CHAMPAGNEBETTY ([phone])[facility] BARBNEW MEXICO [facility] L[facility] VEGASN (SBAB)[address] IMMATURE GRANS % 0.2 % Normal 0.0-2.0 [facility] Comment on above: Performed By: #### L [id number] ####Watch Assembler: SHENA CHAMPAGNEBETTY ([phone])[facility] BARBNEW MEXICO [facility] AT L[facility] VEGASN (SBHLAB)[address] IMMATURE GRANS ABSOLUTE 0.0 10*3/uL Normal <0.1 [facility] Comment on above: Performed By: #### L [id number] ####Watch Assembler: SHENA GUERIN ([id number])[facility] BARBNEW MEX[facility] L[facility]ASN (SBHLAB)[address] Lymphocytes (Bld) [#/Vol] 1.0 10*3/uL Normal 1.0-4.3 [facility] Comment on above: Performed By: #### L [id number] ####Watch Assembler: SHENA CHAMPAGNEBETTY ([phone])[facility] AVONKyler ENGELNEW MEXICO BEHAVIORAL HEALTH INSTITUTE AT LAS VEGASN (SBHLAB)[address] [place] [address] Lymphocytes/100 WBC (Bld) 16.0 % Normal 15.0-45.0 [facility] Comment on above: Performed By: #### L [id number] ####Watch Assembler: SHENA CHAMPAGNEBETTY ([id number])[facility] AVONKlyer BARBNEW MEXICO BEHAVIOR[facility]STITUTE AT L[facility] VEGASN (SBHLAB)[address] [place] [address] MCH (RBC) [Entitic mass] 30.4 pg Normal 26.0-34.0 [facility] Comment on above: Performed By: #### L [id number] ####Watch Assembler: SHENA GUERIN ([id number])[facility] BARBNEW MEXICO BEHAVIORAL HEALTH INSTITUTE AT L[facility] VEGASN (SBHLAB)[address] [place] [address] MCHC 33.6 % Normal 30.5-36.0 [facility] Comment on above: Performed By: #### L [id number] ####Watch Assembler: SHENA GUERIN ([id number])[facility] BARBNEW MEXICO BE[facility]IOR[facility] HE[facility] INSTITUTE AT L[facility] VEGASN (SBHLAB)[address] [place] [address] MCV (RBC) [Entitic vol] 90.4 fL Normal 77.0-99.0 [facility] Comment on above: Performed By: #### L [id number] ####Watch Assembler: SHENA GUERIN ([phone])[facility] (SBHLAB)[address] Monocytes (Bld) [#/Vol] 0.4 10*3/uL Normal 0.0-0.9 [facility] Comment on above: Performed By: #### L [id number] ####Watch Assembler: SHENA GUERIN ([id number])[facility] (SBHLAB)[address] Monocytes/100 WBC (Bld) 6.0 % Normal 5.0-13.0 [facility] Comment on above: Performed By: #### L [id number] ####Watch Assembler: SHENA GUERIN ([phone])[facility] [place] (SBHLAB)[address] [place] [address] NEUTROPHILS ABSOLUTE 4.8 10*3/uL Normal 1.8-7.5 [facility] Comment on above: Performed By: #### L [id number] ####Watch Assembler: SHENA GUERIN ([phone])[facility] [place] (SBHLAB)[address] Neutrophils/100 WBC (Bld) 76.7 % Normal 38.0-82.0 [facility] Comment on above: Performed By: #### L [id number] ####Watch Assembler: SHENA GUERIN ([id number])[facility] [place] (SBHLAB)[address] NRBC 0.0 /100 WBCs Normal 0.0-2.0 [facility] Comment on above: Performed By: #### L [id number] ####Watch Assembler: SHENA GUERIN ([phone])[facility] [place] (SBHLAB)[address] Platelet mean volume (Bld) [Entitic vol] 10.5 fL Normal 9.0-12.7 [facility] Comment on above: Performed By: #### L [id number] ####Watch Assembler: SHENA GUERIN ([phone])[facility] AVONKyler OSORIO (SBHLAB)[address] Platelets (Bld) [#/Vol] 144 10*3/uL Normal 140-440 [facility] Comment on above: Performed By: #### L [id number] ####Watch Assembler: SHENA GUERIN ([phone])[facility] AVONKyler ENGELNEW MEXICO BEHAVIORAL HEALTH INSTITUTE AT LAS VEGASN (SBHLAB)[address] RBC (Bld) [#/Vol] 4.71 10*6/uL Normal 4.40-5.90 [facility] Comment on above: Performed By: #### L [id number] ####Watch Assembler: SHENA GUERIN ([id number])[facility] AVONKyler NEUMANN (SBHLAB)[address] WBC (Bld) [#/Vol] 6.3 10*3/uL Normal 3.6-10.7 [facility] Comment on above: Performed By: #### L [id number] ####Watch Assembler: SHENA GUERIN ([phone])[facility] AVONKyler [place] (SBHLAB)[address] ABDOMEN PELVIS W CONTRAST on 05-22-2024 CT ABDOMEN PELVIS W CONTRAST Normal [facility] CT Abdomen and Pelvis W cont rast [...] Electronically Signed Date/Time: 05/22/2024 4:39 PM T [facility] Patient Name: RORO CLAIRE : [...] LYMPH NODES: Unremarkable. No enlarged lymph nodes. [facility] Alyse Mathias MD - 05/22/2024 Patient Name: RORO VALDIVIA : 1985 [facility]#: [id number] Exam Date/Time: 05/22/2024 15:28 Procedure: CT ABDOMEN [...] Electronically Signed Date/Time: 05/22/2024 4:39 PM EDT [facility] Radiology Study observation (narrative) [facility] CT Abdomen and Pelvis W cont rast IVOrdered By: Alyse Mathias on 05-22-2024 [facility] Work Phone: ED Nursing Noteon 05-22-2024 ED Nursing Note Abdominal pain Pancreatitis was seen 3 days ago and was told if pain got worse to come back. Now also having chest pain and kidney pain Normal [facility] ED Provider Noteon ED Provider Note Normal [facility] HEPATIC FUNCTION PANELon Albumin [Mass/Vol] 4.0 g/dL Normal 3.5-5.0 [facility] Comment on above: Performed By: #### L AB20, LAB99, LAB15 ####Watch Assembler: SHENA UNDERWOODCER ([phone])[facility] [place] (SBHLAB)[address] [place] [address] [place] ALP [Catalytic activity/Vol] 187 U/L High 40-150 [facility] Comment on above: Performed By: #### L AB20, LAB99, LAB15 ####Watch Assembler: SHENA DEL ROSARIOHAMIDA ([id number])[facility] [place] (SBHLAB)[address] [place] [address] [place] ALT [Catalytic activity/Vol] 75 U/L High <40 [facility] Comment on above: Performed By: #### L AB20, LAB99, LAB15 ####Watch Assembler: SHENA APOORVA ([id number])[facility] [place] (SBHLAB)[address] [place] [address] [place] AST [Catalytic activity/Vol] 119 U/L High <34 [facility] Comment on above: Performed By: #### L AB20, LAB99, LAB15 ####Watch Assembler: SHENA DEL ROSARIOHAMIDA ([phone])[facility]BNEW MEXICO [facility] AT L[facility] VEGASN (SBHLAB)[address] [place] [address] [place] Bilirubin [Mass/Vol] 2.6 mg/dL High <1.2 [facility] Comment on above: Performed By: #### L AB20, LAB99, LAB15 ####Watch Assembler: SHENA DEL ROSARIOMARILOUBETTY ([id number])[facility] BARBNEW MEXICO [facility] INSTITUTE AT L[facility] VEGASN (SBHLAB)[address] [place] [address] [place] Bilirubin.indirect [Mass/Vol] 1.7 mg/dL High <0.5 [facility] Comment on above: Performed By: #### L AB20, LAB99, LAB15 ####Watch Assembler: SHENA DEL ROSARIOHAMIDA ([phone])[facility] [place] (SBHLAB)[address] Protein [Mass/Vol] 7.5 g/dL Normal 6.4-8.3 [facility] Comment on above: Result Comment: Seru m protein values are higher than plasma values. Samples from recumbent persons are lower by up to 0.5 g/dL as compared to ambulatory persons. After 60 years values are lower by up to 0.2 g/dL. Performed By: #### L AB20, LAB99, LAB15 ####Watch Assembler: SHENA GUERIN ([phone])[facility] ([facility])[address] Hepatic function 2000 panelo n 05-22-2024 Albumin [Mass/Vol] 4 g/dL 3.5 - 5.0 g/dL [facility] ALP [Catalytic activity/Vol] 187 U/L High 40 - 150 U/L [facility] ALT [Catalytic activity/Vol] 75 U/L High NINF - 40 U/L [facility] AST [Catalytic activity/Vol] 119 U/L High NINF - 34 U/L [facility] Bilirubin [Mass/Vol] 2.6 mg/dL High NINF - 1.2 mg/dL [facility] Bilirubin.conjugated [Mass/Vol] 1.7 mg/dL High NINF - 0.5 mg/dL [facility] Protein [Mass/Vol] 7.5 g/dL 6.4 - 8.3 g/dL [facility] Comment on above: Serum protein values are higher than plasma values. Samples from recumbent persons are lower by up to 0.5 g/dL as compared to ambulatory persons. After 60 years values are lower by up to 0.2 g/dL. LIPASEon 05-22-2024 Lipase [Catalytic activity/Vol] 50 U/L Normal <55 [facility] Comment on above: Performed By: #### L AB20, LAB99, LAB15 ####Watch Assembler: SHENA GUERIN ([phone])[facility] (SBHLAB)[address] Laboratory - Chemistry and C hemistry - challengeon 05-22-2024 Lipase [Catalytic activity/Vol] 50 U/L NINF - 55 U/L [facility] Lipase [Catalytic activity/V ol]on 05-22-2024 Interpretation and review of laboratory results Normal [facility] No Panel Informationon 05-22 Interpretation and review of laboratory results Abnormal [facility] 36on 05-21-2024 36 This [facility] RN called patient for follow up, voicemail received, message left. Normal [facility] CBC W Auto Differential pane l (Bld)on 05-21-2024 Basophils (Bld) [#/Vol] 0.04 10*3/uL Normal <0.11 [facility] Comment on above: Order Comment: Speci men Type: BLOOD SPECIMEN Ordering Facility: [facility] Address: [address] [place] [address] Performed By: #### 5 7021-8 #### [facility] CLIA [id number] [address] [place], [place] [address] [place] Basophils/100 WBC (Bld) 0.5 % Normal [facility] Comment on above: Order Comment: Speci men Type: BLOOD SPECIMEN Ordering Facility: [facility] Address: [address] [place] [address] Performed By: #### 5 7021-8 #### [facility] CLIA [id number] [address] [place], [place] [address] [place] Differential cell count method Nom (Bld) Auto Normal [facility] Comment on above: Order Comment: Speci men Type: BLOOD SPECIMEN Ordering Facility: [facility] Address: [address] [place] [address] Performed By: #### 5 7021-8 #### [facility] CLIA [id number] [address] [place], [place] [address] [place] Eosinophils (Bld) [#/Vol] 0.11 10*3/uL Normal <0.46 [facility] Comment on above: Order Comment: Speci men Type: BLOOD SPECIMEN Ordering Facility: [facility] Address: [address] [place] [address] Performed By: #### 5 7021-8 #### [facility] CLIA [id number] [address] [place], [place] [address] [place] Eosinophils/100 WBC (Bld) 1.4 % Normal [facility] Comment on above: Order Comment: Speci men Type: BLOOD SPECIMEN Ordering Facility: [facility] Address: [address] [place] [address] Performed By: #### 5 7021-8 #### [facility] CLIA [id number] [address] [place] [place] [address] [place] Erythrocyte distribution width (RBC) [Ratio] 14.8 % Normal 11.5-15.0 [facility] Comment on above: Order Comment: Speci men Type: BLOOD SPECIMEN Ordering Facility: [facility] Address: [address] [place] [address] Performed By: #### 5 7021-8 #### [facility] CLIA [id number] [address] [place] [address] [place] Hematocrit (Bld) [Volume fraction] 45.7 % Normal 39.0-51.0 [facility] Comment on above: Order Comment: Speci men Type: BLOOD SPECIMEN Ordering Facility: [facility] Address: [address] [place] [address] Performed By: #### 5 7021-8 #### [facility] CLIA [id number] [address] [place], [place] [address] [place] Hemoglobin (Bld) [Mass/Vol] 15.1 g/dL Normal 13.0-17.0 [facility] Comment on above: Order Comment: Speci men Type: BLOOD SPECIMEN Ordering Facility: [facility] Address: [address] [place] [address] Performed By: #### 5 7021-8 #### [facility] CLIA [id number] [address] [place], [place] [address] [place] Immature granulocytes (Bld) [#/Vol] 10*3/uL Normal <0.10 [facility] Comment on above: Order Comment: Speci men Type: BLOOD SPECIMEN Ordering Facility: [facility] Address: [address] [place] [address] Performed By: #### 5 7021-8 #### [facility] CLIA [id number] [address] [place] [address] [place] Immature granulocytes/100 WBC (Bld) 0.1 % Normal [facility] Comment on above: Order Comment: Speci men Type: BLOOD SPECIMEN Ordering Facility: [facility] Address: [address] [place] [address] Performed By: #### 5 7021-8 #### [facility] CLIA [id number] [address] [place] [place] [address] [place] Lymphocytes (Bld) [#/Vol] 3.38 10*3/uL Normal 1.00-4.00 [facility] Comment on above: Order Comment: Speci men Type: BLOOD SPECIMEN Ordering Facility: [facility] Address: [address] [place] [address] Performed By: #### 5 7021-8 #### [facility] CLIA [id number] [address] [place] [address] [place] Lymphocytes/100 WBC (Bld) 41.9 % Normal [facility] Comment on above: Order Comment: Speci men Type: BLOOD SPECIMEN Ordering Facility: [facility] Address: [address] [place] [address] Performed By: #### 5 7021-8 #### [facility] CLIA [id number] [address] [place], [place] [address] [place] MCH (RBC) [Entitic mass] 29.8 pg Normal 26.0-34.0 [facility] Comment on above: Order Comment: Speci men Type: BLOOD SPECIMEN Ordering Facility: [facility] Address: [address] [place] [address] Performed By: #### 5 7021-8 #### [facility] CLIA [id number] [address] [place], [place] [address] [place] [facility] (RBC) [Mass/Vol] 33.0 g/dL Normal 30.5-36.0 [facility] Comment on above: Order Comment: Speci men Type: BLOOD SPECIMEN Ordering Facility: [facility] Address: [address] [place] [address] Performed By: #### 5 7021-8 #### [facility] CLIA [id number] [address] [place], [place] [address] [place] MCV (RBC) [Entitic vol] 90.1 fL Normal 80.0-100.0 A [facility] Comment on above: Order Comment: Speci men Type: BLOOD SPECIMEN Ordering Facility: [facility] Address: [address] [place] [address] Performed By: #### 5 7021-8 #### [facility] CLIA [id number] [address] [place], [place] [address] [place] Monocytes (Bld) [#/Vol] 0.53 10*3/uL Normal <0.87 [facility] Comment on above: Order Comment: Speci men Type: BLOOD SPECIMEN Ordering Facility: [facility] Address: [address] [place] [address] Performed By: #### 5 7021-8 #### [facility] CLIA [id number] [address] [place], [place] [address] [place] Monocytes/100 WBC (Bld) 6.6 % Normal A [facility] Comment on above: Order Comment: Speci men Type: BLOOD SPECIMEN Ordering Facility: [facility] Address: [address] [place] [address] Performed By: #### 5 7021-8 #### [facility] CLIA [id number] [address] [place], [place] [address] [place] Neutrophils (Bld) [#/Vol] 3.99 10*3/uL Normal 1.45-7.50 [facility] Comment on above: Order Comment: Speci men Type: BLOOD SPECIMEN Ordering Facility: [facility] Address: [address] [place] [address] Performed By: #### 5 7021-8 #### [facility] CLIA [id number] [address] [place], [place] [address] [place] Neutrophils/100 WBC (Bld) 49.5 % Normal [facility] Comment on above: Order Comment: Speci men Type: BLOOD SPECIMEN Ordering Facility: [facility] Address: [address] [place] [address] Performed By: #### 5 7021-8 #### [facility] CLIA [id number] [address] [place] [address] [place] Nucleated RBC (Bld) [#/Vol] Normal [facility] Comment on above: Order Comment: Speci men Type: BLOOD SPECIMEN Ordering Facility: [facility] Address: [address] [place] [address] Performed By: #### 5 7021-8 #### [facility] CLIA [id number] [address] [place] [address] [place] Nucleated RBC/100 WBC (Bld) [Ratio] Normal [facility] Comment on above: Order Comment: Speci men Type: BLOOD SPECIMEN Ordering Facility: [facility] Address: [address] [place] [address] Performed By: #### 5 7021-8 #### [facility] CLIA [id number] [address] [place] [address] [place] Platelet mean volume (Bld) [Entitic vol] 9.6 fL Normal 9.0-12.7 [facility] Comment on above: Order Comment: Speci men Type: BLOOD SPECIMEN Ordering Facility: [facility] Address: [address] [place] [address] Performed By: #### 5 7021-8 #### [facility] CLIA [id number] [address] [place] [address] [place] Platelets (Bld) [#/Vol] 225 10*3/uL Normal 150-400 [facility] Comment on above: Order Comment: Speci men Type: BLOOD SPECIMEN Ordering Facility: [facility] Address: [address] [place] [address] Performed By: #### 5 7021-8 #### COURT [facility] CLIA [id number] [address] [place] [address] [place] RBC (Bld) [#/Vol] 5.07 10*6/uL Normal 4.20-6.00 [facility] Comment on above: Order Comment: Speci men Type: BLOOD SPECIMEN Ordering Facility: [facility] Address: [address] [place] [address] Performed By: #### 5 7021-8 #### [facility] CLIA [id number] [address] [place] [address] [place] [facility] WBC (Bld) [#/Vol] 8.06 10*3/uL Normal 3.70-11.00 [facility] Comment on above: Order Comment: Speci men Type: BLOOD SPECIMEN Ordering Facility: [facility] Address: [address] [place] [address] Performed By: #### 5 7021-8 #### [facility] CLIA [id number] [address] [place] [address] [facility] Comprehensive metabolic 2000 panelon 05-21-2024 Albumin [Mass/Vol] 4.8 g/dL Normal 3.9-4.9 [facility] Comment on above: Order Comment: Speci men Type: BLOOD SPECIMEN Ordering Facility: [facility] Address: [address] [place] [address] Performed By: #### 2 4323-8, 3040-3 #### [facility] CLIA [id number] [address] [place], [place] [address] [place] ALP [Catalytic activity/Vol] 199 U/L High 38-113 [facility] Comment on above: Order Comment: Speci men Type: BLOOD SPECIMEN Ordering Facility: [facility] Address: [address] [place] [address] Performed By: #### 2 4323-8, 3040-3 #### COURT [facility] CLIA [id number] [address] [place], [place] [address] [place] ALT [Catalytic activity/Vol] 70 U/L High 10-54 [facility] Comment on above: Order Comment: Speci men Type: BLOOD SPECIMEN Ordering Facility: [facility] Address: [address] [place] [address] Performed By: #### 2 4323-8, 3039-3 #### [facility] CLIA [id number] [address] [place], [place] [address] [place] Anion gap [Moles/Vol] 15 mmol/L Normal 8-15 [facility] Comment on above: Order Comment: Speci men Type: BLOOD SPECIMEN Ordering Facility: [facility] Address: [address] [place] [address] Performed By: #### 2 4323-8, 3039-3 #### [facility] CLIA [id number] [address] [place] [address] [place] AST [Catalytic activity/Vol] 122 U/L High 14-40 [facility] Comment on above: Order Comment: Speci men Type: BLOOD SPECIMEN Ordering Facility: [facility] Address: [address] [place] [address] Performed By: #### 2 4323-8, 3 #### COURT [facility] CLIA [id number] [address] [place] [address] [place] Bilirubin [Mass/Vol] 1.8 mg/dL High 0.2-1.3 [facility] Comment on above: Order Comment: Speci men Type: BLOOD SPECIMEN Ordering Facility: [facility] Address: [address] [place] [address] Result Comment: Use of this assay is not recommended for patients undergoing treatment with eltrombopag due to the potential for falsely elevated results. Performed By: #### 2 4323-8, 3039-3 #### [facility] CLIA [id number] [address] [place], [place] [address] [place] Calcium [Mass/Vol] 9.6 mg/dL Normal 8.5-10.2 [facility] Comment on above: Order Comment: Speci men Type: BLOOD SPECIMEN Ordering Facility: [facility] Address: [address] [place] [address] Performed By: #### 2 4323-8, 3040-3 #### COURT Robert [facility] CLIA [id number] [address] [place] [address] [place] Chloride [Moles/Vol] 99 mmol/L Normal 98-107 [facility] Comment on above: Order Comment: Speci men Type: BLOOD SPECIMEN Ordering Facility: [facility] Address: [address] [place] [address] Performed By: #### 2 4323-8, 3040-3 #### [facility] Robert [facility] CLIA [id number] [address] [place] [address] [place] CO2 [Moles/Vol] 21 mmol/L Low 22-30 [facility] Comment on above: Order Comment: Speci men Type: BLOOD SPECIMEN Ordering Facility: [facility] Address: [address] [place] [address] Performed By: #### 2 4323-8, 0-3 #### [facility] Robert [facility] CLIA [id number] [address] [place] [address] [place] Creatinine [Mass/Vol] 0.64 mg/dL Low 0.73-1.22 [facility] Comment on above: Order Comment: Speci men Type: BLOOD SPECIMEN Ordering Facility: [facility] Address: [address] [place] [address] Result Comment: Use of this assay is not recommended for patients undergoing treatment with phenindione, due to the potential for falsely depressed results. Performed By: #### 2 4323-8, 3040-3 #### COURT Robert [facility] CLIA [id number] [address] [place] [address] [place] Creatinine and Glomerular filtration rate.predicted panel (S/P/Bld) 125 mL/min/1.73m??? Normal >=60 [facility] Comment on above: Order Comment: Speci men Type: BLOOD SPECIMEN Ordering Facility: [facility] Address: [address] [place] [address] Result Comment: Oliva mated Glomerular Filtration Rate [...] By: #### 2 4323-8, 3039-3 #### COURT Robert [facility] CLIA [id number] [address] [place] [address] [place] Glucose [Mass/Vol] 127 mg/dL High 74-99 [facility] Comment on above: Order Comment: Lakshmi espinoza Type: BLOOD SPECIMEN Ordering Facility: [facility] Address: [address] [place] [address] Result Comment: The [place] [employer] (ADA) provides guidance for cutoff [...] Standards of Medical Care in Diabetes 2016, [place] [employer]. Diabetes Care. 2016.39(Suppl 1). Performed By: #### 2 4323-8, 3039-3 #### [facility] Robert [facility] CLIA [id number] [address] [place] [address] [place] Potassium [Moles/Vol] 3.4 mmol/L Low 3.7-5.1 [facility] Comment on above: Order Comment: Lakshmi espinoza Type: BLOOD SPECIMEN Ordering Facility: [facility] Address: [address] [place], [place] [address] Performed By: #### 2 4323-8, 3040-3 #### [facility] CLIA [id number] [address] [place] [address] [place] Protein [Mass/Vol] 8.3 g/dL High 6.3-8.0 [facility] Comment on above: Order Comment: Speci men Type: BLOOD SPECIMEN Ordering Facility: [facility] Address: [address] [place] [address] Performed By: #### 2 4323-8, 3040-3 #### [facility] CLIA [id number] [address] [place] [address] [place] Sodium [Moles/Vol] 135 mmol/L Low 136-144 [facility] Comment on above: Order Comment: Speci men Type: BLOOD SPECIMEN Ordering Facility: [facility] Address: [address] [place] [address] Performed By: #### 2 4323-8, 0-3 #### [facility] CLIA [id number] [address] [place], [place] [address] [place] Urea nitrogen [Mass/Vol] 5 mg/dL Low 9-24 [facility] Comment on above: Order Comment: Speci men Type: BLOOD SPECIMEN Ordering Facility: [facility] Address: [address] [place] [address] Performed By: #### 2 4323-8, 3040-3 #### [facility] CLIA [id number] [address] [place], [place] [address] [place] ED PROV NOTEon 05-21-2024 ED PROV NOTE HNO ID: [id number] Author: BALJINDER DUNLAP DO Service: Emergency Medicine [...] Mur (more content not included)... Normal [facility] Lipase SerPl-cCncon 05-22-19 25 Lipase [Catalytic activity/Vol] 182 U/L High 16-61 [facility] Comment on above: Order Comment: Speci men Type: BLOOD SPECIMEN Ordering Facility: [facility] Address: [address] [place] [address] Performed By: #### 2 4323-8, 3040-3 #### [facility] CLIA [id number] [address] [place] [address] [facility] 36on 05-16-2024 36 This [facility] RN called patient for follow up, voicemail received, message left. Normal [facility] CBC W Auto Differential pane l (Bld)on 05-07-2024 Basophils (Bld) [#/Vol] 0 10*3/uL 0.0 - 0.2 10*3/uL [facility] Basophils/100 WBC (Bld) 0.6 % 0.0 - 2.0 % [facility] Eosinophils (Bld) [#/Vol] 0 10*3/uL 0.0 - 0.5 10*3/uL [facility] Eosinophils/100 WBC (Bld) 0.8 % 0.0 - 6.0 % [facility] Erythrocyte distribution width (RBC) [Ratio] 15.6 % High 11.5 - 15.0 % [facility] Hematocrit (Bld) [Volume fraction] 40.9 % 40.0 - 52.0 % [facility] Hemoglobin (Bld) [Mass/Vol] 13.8 g/dL 13.0 - 18.0 g/dL [facility] Immature granulocytes (Bld) [#/Vol] 0 10*3/uL NINF - 0.1 10*3/uL [facility] [employer] Immature granulocytes/100 WBC (Bld) 0.2 % 0.0 - 2.0 % [facility] Interpretation and review of laboratory results Abnormal [facility] Lymphocytes (Bld) [#/Vol] 1.7 10*3/uL 1.0 - 4.3 10*3/uL [facility] Lymphocytes/100 WBC (Bld) 33.7 % 15.0 - 45.0 % [facility] MCH (RBC) [Entitic mass] 30.3 pg 26.0 - 34.0 pg [facility] MCHC (RBC) [Mass/Vol] 33.7 % 30.5 - 36.0 % [facility] MCV (RBC) [Entitic vol] 89.9 fL 77.0 - 99.0 fL [facility] Monocytes (Bld) [#/Vol] 0.4 10*3/uL 0.0 - 0.9 10*3/uL [facility] Monocytes/100 WBC (Bld) 8.8 % 5.0 - 13.0 % [facility] Neutrophils (Bld) [#/Vol] 2.8 10*3/uL 1.8 - 7.5 10*3/uL [facility] Neutrophils/100 WBC (Bld) 55.9 % 38.0 - 82.0 % [facility] Nucleated RBC/100 WBC (Bld) [Ratio] 0 % [facility] Platelet mean volume (Bld) [Entitic vol] 10.2 fL 9.0 - 12.7 fL [facility] Comment on above: MPV is a calculated measurement using platelet volume ratio Platelets (Bld) [#/Vol] 170 10*3/uL 140 - 440 10*3/uL [facility] RBC (Bld) [#/Vol] 4.55 10*6/uL 4.40 - 5.9 0 10*6/uL [facility] WBC (Bld) [#/Vol] 5 10*3/uL 3.6 - 10.7 10*3/uL [facility] CBC WITH AUTO DIFFERENTIALon 05-07-2024 Basophils (Bld) [#/Vol] 0.0 10*3/uL Normal 0.0-0.2 [facility] Comment on above: Performed By: #### L [id number] ####Watch Assembler: SHENA GUERIN ([phone])[facility] ([facility])[address] Basophils/100 WBC (Bld) 0.6 % Normal 0.0-2.0 [facility] Comment on above: Performed By: #### L [id number] ####Watch Assembler: SHENA GUERIN ([phone])[facility] ([facility])[address] [place] [address] [facility] Eosinophils (Bld) [#/Vol] 0.0 10*3/uL Normal 0.0-0.5 [facility] Comment on above: Performed By: #### L [id number] ####Watch Assembler: SHENA GUERIN ([id number])[facility] ([facility])[address] [place] [address] [place] Eosinophils/100 WBC (Bld) 0.8 % Normal 0.0-6.0 [facility] Comment on above: Performed By: #### L [id number] ####Watch Assembler: SHENA GUERIN ([phone])[facility] ([facility])[address] Erythrocyte distribution width (RBC) [Ratio] 15.6 % High 11.5-15.0 [facility] Comment on above: Performed By: #### L [id number] ####Watch Assembler: SHENA CHAMPAGNEBETTY ([phone])[facility] ([facility])[address] Hematocrit (Bld) [Volume fraction] 40.9 % Normal 40.0-52.0 [facility] Comment on above: Performed By: #### L [id number] ####Watch Assembler: SHENA GUERIN ([id number])[facility] ([facility])[address] Hemoglobin (Bld) [Mass/Vol] 13.8 g/dL Normal 13.0-18.0 [facility] Comment on above: Performed By: #### L [id number] ####Watch Assembler: SHENA GUERIN ([phone])[facility] ([facility])[address] [place] [address] [place] IMMATURE GRANS % 0.2 % Normal 0.0-2.0 [facility] Comment on above: Performed By: #### L [id number] ####Watch Assembler: SHENA GUERIN ([phone])[facility] ([facility])[address] [place] [address] [place] IMMATURE GRANS ABSOLUTE 0.0 10*3/uL Normal <0.1 [facility] Comment on above: Performed By: #### L [id number] ####Watch Assembler: SHENA GUERIN ([phone])[facility])[address] Lymphocytes (Bld) [#/Vol] 1.7 10*3/uL Normal 1.0-4.3 [facility] Comment on above: Performed By: #### L [id number] ####Watch Assembler: SHENA GUERIN ([phone])[facility])[address] Lymphocytes/100 WBC (Bld) 33.7 % Normal 15.0-45.0 [facility] Comment on above: Performed By: #### L [id number] ####Watch Assembler: SHENA GUERIN ([phone])[facility] [employer] [facility])[address] MCH (RBC) [Entitic mass] 30.3 pg Normal 26.0-34.0 [facility] Comment on above: Performed By: #### L [id number] ####Watch Assembler: SHENA GUERIN ([phone])[facility] [employer] ([facility])[address] MCHC 33.7 % Normal 30.5-36.0 [facility] Comment on above: Performed By: #### L [id number] ####Watch Assembler: SHENA GUERIN ([id number])[facility])[address] MCV (RBC) [Entitic vol] 89.9 fL Normal 77.0-99.0 S [facility] Comment on above: Performed By: #### L [id number] ####Watch Assembler: SHENA GUERIN ([id number])[facility] [facility] ([facility])[address] [place] [address] [place] Monocytes (Bld) [#/Vol] 0.4 10*3/uL Normal 0.0-0.9 [facility] Comment on above: Performed By: #### L [id number] ####Watch Assembler: SHENA GUERIN ([id number])[facility])[address] [place] [address] [place] Monocytes/100 WBC (Bld) 8.8 % Normal 5.0-13.0 [facility] Comment on above: Performed By: #### L [id number] ####Watch Assembler: SHENA GUERIN ([phone])[facility] [employer] ([facility])[address] [place] [address] [place] NEUTROPHILS ABSOLUTE 2.8 10*3/uL Normal 1.8-7.5 [facility] Comment on above: Performed By: #### L [id number] ####Watch Assembler: SHENA GUERIN ([phone])[facility])[address] [place] [address] [place] Neutrophils/100 WBC (Bld) 55.9 % Normal 38.0-82.0 [facility] Comment on above: Performed By: #### L [id number] ####Watch Assembler: SHENA GUERIN ([id number])[facility] [employer])[address] [place] [address] [facility] NRBC 0.0 /100 WBCs Normal 0.0-2.0 [facility] Comment on above: Performed By: #### L [id number] ####Watch Assembler: SHENA GUEIRN ([phone])[facility] [facility] ([facility])[address] [place] [address] [facility] Platelet mean volume (Bld) [Entitic vol] 10.2 fL Normal 9.0-12.7 [facility] Comment on above: Result Comment: MPV is a calculated measurement using platelet volume ratio Performed By: #### L [id number] ####Watch Assembler: SHENA GUERIN ([id number])[facility] [employer] ([facility])[address] Platelets (Bld) [#/Vol] 170 10*3/uL Normal 140-440 [facility] Comment on above: Performed By: #### L [id number] ####Watch Assembler: SHENA GUERIN ([id number])[facility] ([facility])[address] RBC (Bld) [#/Vol] 4.55 10*6/uL Normal 4.40-5.90 [facility] Comment on above: Performed By: #### L [id number] ####Watch Assembler: SHENA GUERIN ([phone])[facility] ([facility])[address] [place] [address] WBC (Bld) [#/Vol] 5.0 10*3/uL Normal 3.6-10.7 [facility] Comment on above: Performed By: #### L [id number] ####Watch Assembler: SHENA GUERIN ([phone])[facility])[address] [place] [address] COMPREHENSIVE METABOLIC PANE Rylan 05-07-2024 Albumin [Mass/Vol] 3.9 g/dL Normal 3.5-5.0 [facility] Comment on above: Performed By: #### L AB17, LAB99 ####Watch Assembler: SHENA GUERIN ([phone])[facility])[address] [place] [address] ALP [Catalytic activity/Vol] 191 U/L High 40-150 [facility] Comment on above: Performed By: #### L AB17, LAB99 ####Watch Assembler: SHENA GUERIN ([phone])[facility] [place] [facility] ([facility])[address] [place] [address] [place] ALT [Catalytic activity/Vol] 118 U/L High <40 [facility] Comment on above: Performed By: #### L AB17, LAB99 ####Watch Assembler: SHENA APOORVA ([phone])[facility] [place] [facility] ([facility])[address] [place] [address] [place] Anion gap [Moles/Vol] 15 mmol/L High 3-13 [facility] Comment on above: Performed By: #### L AB17, LAB99 ####Watch Assembler: SHENA APOORVA ([phone])[facility])[address] [place] [address] [place] AST [Catalytic activity/Vol] 179 U/L High <34 [facility] Comment on above: Performed By: #### L AB17, LAB99 ####Watch Assembler: SHENA APOORVA ([id number])[facility])[address] [place] [address] [place] Bilirubin [Mass/Vol] 1.3 mg/dL High <1.2 [facility] Comment on above: Performed By: #### L AB17, LAB99 ####Watch Assembler: SHENA APOORVA ([id number])[facility] ([facility])[address] [place] [address] [place] Calcium [Mass/Vol] 9.2 mg/dL Normal 8.4-10.2 [facility] Comment on above: Performed By: #### L AB17, LAB99 ####Watch Assembler: SHENA DEL ROSARIOHAMIDA ([phone])[facility] [place] [address] [place] Chloride [Moles/Vol] 103 mmol/L Normal 98-107 [facility] Comment on above: Performed By: #### L AB17, LAB99 ####Watch Assembler: SHENA GUERIN ([id number])[facility] [place] [address] [place] CO2 [Moles/Vol] 19 mmol/L Low 22-29 [facility] Comment on above: Performed By: #### L AB17, LAB99 ####Watch Assembler: SHENA GUERIN ([id number])[facility] [place] [address] [place] Creatinine [Mass/Vol] 0.63 mg/dL Low 0.72-1.25 [facility] Comment on above: Performed By: #### L 17, LAB99 ####Watch Assembler: SHENA GUERIN ([id number])[facility] ([facility])[address] [place] [address] [place] GLOMERULAR FILTRATION RATE ML/MIN/1.73 SQ M.PREDICTED >90.0 Normal >60.0 [facility] Comment on above: Result Comment: Calc ulation based on the Chronic Kidney Disease Epidemiology Collaboration (CKD-EPI) equation refit without adjustment for race Performed By: #### L 17, LAB99 ####Watch Assembler: SHENA GUERIN ([id number])[facility] [place] [address] [place] Glucose [Mass/Vol] 113 mg/dL High 74-100 [facility] Comment on above: Performed By: #### L AB17, LAB99 ####Watch Assembler: SHENA GUERIN ([id number])[facility] [place] [address] [place] Potassium [Moles/Vol] 3.6 mmol/L Normal 3.5-5.1 [facility] Comment on above: Result Comment: [facility] potassium values may be up to 0.5 mmol/L lower than serum values. Performed By: #### L AB17, LAB99 ####Watch Assembler: SHENA [id number])[facility] ([facility])[address] Protein [Mass/Vol] 7.8 g/dL Normal 6.4-8.3 [facility] Comment on above: Performed By: #### L AB17, LAB99 ####Watch Assembler: SHENA CHAMPAGNEBETTY ([id number])[facility] ([facility])[address] Sodium [Moles/Vol] 137 mmol/L Normal 136-145 [facility] Comment on above: Performed By: #### L AB17, LAB99 ####Watch Assembler: SHENA CHAMPAGNEBETTY ([id number])[facility])[address] Urea nitrogen [Mass/Vol] 5 mg/dL Low 8-21 [facility] Comment on above: Performed By: #### L AB17, LAB99 ####Watch Assembler: SHENA CHAMPAGNEBETTY ([id number])[facility] ([facility])[address] [place] [address] [place] ABDOMEN PELVIS WO IV CONT RASTon 05-07-2024 CT ABDOMEN PELVIS WO IV CONTRAST Normal [facility] CT ABDOMEN PELVIS WO IV CONTRAST Normal [facility] CT Abdomen and Pelvis WO con traston 05-07-2024 1. Findings compatible with pancreatitis, similar to comparison. Correlation with appropriate laboratory values and follow-up suggested. 2. Hepatosplenomegaly, and hepatic steatosis. Report Dictated on Electronically Signed By: Paul Plata MD Electronically Signed Date/Time: 05/07/2024 5:37 PM [facility] Patient Name: RORO CLAIRE : [...] aorta is nonaneurysmal. Axial skeleton grossly intact. [facility] Paul Plata MD - 05/07/2024 [...] Electronically Signed Date/Time: 05/07/2024 5:37 PM EDT [facility] Radiology Study observation (narrative) [facility] CT Abdomen and Pelvis WO con trastOrdered By: Paul Plata on 05-07-2024 [facility] [employer] Work Phone: Comprehensive metabolic 1998 panelon 05-07-2024 Albumin [Mass/Vol] 3.9 g/dL 3.5 - 5.0 g/dL [facility] ALP [Catalytic activity/Vol] 191 U/L High 40 - 150 U/L [facility] ALT [Catalytic activity/Vol] 118 U/L High NINF - 40 U/L [facility] Anion gap [Moles/Vol] 15 mmol/L High 3 - 13 mmol/L [facility] AST [Catalytic activity/Vol] 179 U/L High NINF - 34 U/L [facility] Bilirubin [Mass/Vol] 1.3 mg/dL High NINF - 1.2 mg/dL [facility] Calcium [Mass/Vol] 9.2 mg/dL 8.4 - 10. 2 mg/dL [facility] Chloride [Moles/Vol] 103 mmol/L 98 - 10 7 mmol/L [facility] CO2 [Moles/Vol] 19 mmol/L Low 22 - 29 mmol/L [facility] Creatinine [Mass/Vol] 0.63 mg/dL Low 0.72 - 1.25 mg/dL [facility] GFR/1.73 sq M.predicted (S/P/Bld) [Vol rate/Area] - PINF [facility] Comment on above: Calculation based on the Chronic Kidney Disease Epidemiology Collaboration (CKD-EPI) equation refit without adjustment for race Glucose [Mass/Vol] 113 mg/dL High 74 - 100 mg/dL [facility] Potassium [Moles/Vol] 3.6 mmol/L 3.5 - 5.1 mmol/L [facility] Comment on above: Plasma potassium víctor ues may be up to 0.5 mmol/L lower than serum values. Protein [Mass/Vol] 7.8 g/dL 6.4 - 8.3 g/dL [facility] Sodium [Moles/Vol] 137 mmol/L 136 - 145 mmol/L [facility] Urea nitrogen [Mass/Vol] 5 mg/dL Low 8 - 21 mg/dL [facility] ED Nursing Noteon 05-07-2024 ED Nursing Note Pt states he drank alcohol 3 days ago and then drank this morning. Normal [facility] ED Provider Noteon ED Provider Note Normal [facility] LIPASEon 05-07-2024 Lipase [Catalytic activity/Vol] 127 U/L High <55 [facility] Comment on above: Performed By: #### L AB17, LAB99 ####Watch Assembler: SHENA GUERIN ([id number])[facility])[address] [place] [address] Laboratory - Chemistry and C hemistry - challengeon 05-07-2024 Lipase [Catalytic activity/Vol] 127 U/L High NINF - 55 U/L [facility] No Panel Informationon 05-07 Interpretation and review of laboratory results Abnormal [facility] 36on 04-26-2024 36 This [facility] RN called patient for follow up, voicemail received, message left. [facility] [address] [facility] 36 Fax received from [facility] on 04/25/24 regarding Rx for risperiDONE (RisperDAL) 0.5 MG tablet Patient's insurance will not cover 4 tablets a day. Can you please reorder this at Risperidone 1 mg - twice a day? [facility] 36on 04-23-2024 36 This [facility] RN called patient for follow up phone call, voicemail received, message left. [facility] 36on 04-22-2024 36 Unable to contact patient X2 Normal [facility] 36on 04-21-2024 36 Normal [facility] [id number] 04-20-[id number] [facility] CBC (HEMOGRAM)on 04-20-2024 Erythrocyte distribution width (RBC) [Ratio] 15.5 % High 11.5-15.0 [facility] Comment on above: Performed By: #### L AB294 ####Watch Assembler: JUDITH MARKHAM ([id number])[facility])[address] [place] [address] Hematocrit (Bld) [Volume fraction] 38.8 % Low 40.0-52.0 [facility] Comment on above: Performed By: #### L AB294 ####Watch Assembler: JUDITH MARKHAM ([id number])[address] Hemoglobin (Bld) [Mass/Vol] 12.7 g/dL Low 13.0-18.0 [facility] Comment on above: Performed By: #### L AB294 ####Watch Assembler: JUDITH MARKHAM ([id number])[address] IPF 8 Normal [facility] Comment on above: Performed By: #### L AB294 ####Watch Assembler: JUDITH MARKHAM ([id number])[facility])[address] [place] [address] MCH (RBC) [Entitic mass] 29.9 pg Normal 26.0-34.0 [facility] Comment on above: Performed By: #### L AB294 ####Watch Assembler: JUDITH MARKHAM ([id number])[address] MCHC 32.7 % Normal 30.5-36.0 [facility] Comment on above: Performed By: #### L AB294 ####Watch Assembler: JUDITH MARKHAM ([id number])[facility])[address] [place] [address] MCV (RBC) [Entitic vol] 91.3 fL Normal 77.0-99.0 [facility] Comment on above: Performed By: #### L AB294 ####Watch Assembler: JUDITH [id number])[facility] ([facility])[address] [place] [address] Platelet mean volume (Bld) [Entitic vol] 10.9 fL Normal 9.0-12.7 [facility] Comment on above: Performed By: #### L AB294 ####Watch Assembler: JUDITH MARKHAM ([id number])[facility] ([facility])[address] [place] [address] Platelets (Bld) [#/Vol] 129 10*3/uL Low 140-440 [facility] Comment on above: Performed By: #### L AB294 ####Watch Assembler: JUDITH MARKHAM ([id number])[facility] ([facility])[address] [place] [address] RBC (Bld) [#/Vol] 4.25 10*6/uL Low 4.40-5.90 [facility] Comment on above: Performed By: #### L AB294 ####Watch Assembler: JUDITH MARKHAM ([id number])[facility] ([facility])[address] [place] [address] WBC (Bld) [#/Vol] 4.8 10*3/uL Normal 3.6-10.7 [facility] Comment on above: Performed By: #### L AB294 ####Watch Assembler: JUDITH MARKHAM ([id number])[facility] ([facility])[address] [place] [address] CBC panel Auto (Bld)on 04-20 Erythrocyte distribution width (RBC) [Ratio] 15.5 % High 11.5 - 15.0 % [facility] Hematocrit (Bld) [Volume fraction] 38.8 % Low 40.0 - 52.0 % [facility] Hemoglobin (Bld) [Mass/Vol] 12.7 g/dL Low 13.0 - 18.0 g/dL [facility] Interpretation and review of laboratory results Abnormal [facility] IPF 8 [facility] MCH (RBC) [Entitic mass] 29.9 pg 26.0 - 34.0 pg [facility] MCHC (RBC) [Mass/Vol] 32.7 % 30.5 - 36.0 % [facility] MCV (RBC) [Entitic vol] 91.3 fL 77.0 - 99.0 fL [facility] Platelet mean volume (Bld) [Entitic vol] 10.9 fL 9.0 - 12.7 fL [facility] Platelets (Bld) [#/Vol] 129 10*3/uL Low 140 - 440 10*3/uL [facility] RBC (Bld) [#/Vol] 4.25 10*6/uL Low 4.40 - 5.9 0 10*6/uL [facility] WBC (Bld) [#/Vol] 4.8 10*3/uL 3.6 - 10.7 10*3/uL [facility] COMPREHENSIVE METABOLIC PANE Rylan 04-20-2024 Albumin [Mass/Vol] 3.2 g/dL Low 3.5-5.0 [facility] Comment on above: Performed By: #### L AB17 ####Watch Assembler: JUDITH MARKHAM ([id number])[facility])[address] [place] [address] ALP [Catalytic activity/Vol] 167 U/L High 40-150 [facility] Comment on above: Performed By: #### L AB17 ####Watch Assembler: JUDITH MARKHAM ([id number])[facility])[address] [place] [address] ALT [Catalytic activity/Vol] 83 U/L High <40 [facility] Comment on above: Performed By: #### L AB17 ####Watch Assembler: JUDITH MARKHAM ([id number])[facility])[address] [place] [address] Anion gap [Moles/Vol] 8 mmol/L Normal 3-13 [facility] Comment on above: Performed By: #### L AB17 ####Watch Assembler: JUDITH MARKHAM ([id number])[facility])[address] [place] [address] AST [Catalytic activity/Vol] 162 U/L High <34 [facility] Comment on above: Performed By: #### L AB17 ####Watch Assembler: JUDITH MARKHAM ([id number])[facility] ([facility])[address] [place] [address] Bilirubin [Mass/Vol] 1.5 mg/dL High <1.2 [facility] Comment on above: Performed By: #### L AB17 ####Watch Assembler: JUDITH MARKHAM ([id number])[facility] ([facility])[address] [place] [address] Calcium [Mass/Vol] 9.0 mg/dL Normal 8.4-10.2 [facility] Comment on above: Performed By: #### L AB17 ####Watch Assembler: JUDITH MARKHAM ([id number])[facility])[address] [place] [address] Chloride [Moles/Vol] 107 mmol/L Normal 98-107 [facility] Comment on above: Performed By: #### L AB17 ####Watch Assembler: JUDITH MARKHAM ([id number])[facility] ([facility])[address] [place] [address] CO2 [Moles/Vol] 21 mmol/L Low 22-29 [facility] Comment on above: Performed By: #### L AB17 ####Watch Assembler: JUDITH MARKHAM ([id number])[facility])[address] [place] [address] Creatinine [Mass/Vol] 0.61 mg/dL Low 0.72-1.25 [facility] Comment on above: Performed By: #### L AB17 ####Watch Assembler: JUDITH MARKHAM ([id number])[facility])[address] [place] [address] GLOMERULAR FILTRATION RATE ML/MIN/1.73 SQ M.PREDICTED >90.0 Normal >60.0 [facility] Comment on above: Result Comment: Calc ulation based on the Chronic Kidney Disease Epidemiology Collaboration (CKD-EPI) equation refit without adjustment for race Performed By: #### L AB17 ####Watch Assembler: JUDITH MARKHAM ([id number])[facility] [place] [address] Glucose [Mass/Vol] 111 mg/dL High 74-100 [facility] Comment on above: Performed By: #### L AB17 ####Watch Assembler: JUDITH MARKHAM ([id number])[facility] ([facility])[address] [place] [address] Potassium [Moles/Vol] 3.8 mmol/L Normal 3.5-5.1 [facility] Comment on above: Result Comment: [facility] potassium values may be up to 0.5 mmol/L lower than serum values. Performed By: #### L AB17 ####Watch Assembler: JUDITH MARKHAM ([id number])[facility] ([facility])[address] [place] [address] Protein [Mass/Vol] 6.5 g/dL Normal 6.4-8.3 [facility] Comment on above: Performed By: #### L AB17 ####Watch Assembler: JUDITH MARKHAM ([id number])[facility] ([facility])[address] [place] [address] Sodium [Moles/Vol] 136 mmol/L Normal 136-145 [facility] Comment on above: Performed By: #### L AB17 ####Watch Assembler: JUDITH MARKHAM ([id number])[facility] ([facility])[address] [place] [address] Urea nitrogen [Mass/Vol] 3 mg/dL Low 8-21 [facility] Comment on above: Performed By: #### L AB17 ####Watch Assembler: JUDITH MARKHAM ([id number])[facility] ([facility])[address] [place] [address] Comprehensive metabolic 1998 panelon 04-20-2024 Albumin [Mass/Vol] 3.2 g/dL Low 3.5 - 5.0 g/dL [facility] ALP [Catalytic activity/Vol] 167 U/L High 40 - 150 U/L [facility] ALT [Catalytic activity/Vol] 83 U/L High NINF - 40 U/L [facility] Anion gap [Moles/Vol] 8 mmol/L 3 - 13 mmol/L [facility] AST [Catalytic activity/Vol] 162 U/L High NINF - 34 U/L [facility] Bilirubin [Mass/Vol] 1.5 mg/dL High NINF - 1.2 mg/dL [facility] Calcium [Mass/Vol] 9 mg/dL 8.4 - 10. 2 mg/dL [facility] Chloride [Moles/Vol] 107 mmol/L 98 - 10 7 mmol/L [facility] CO2 [Moles/Vol] 21 mmol/L Low 22 - 29 mmol/L [facility] Creatinine [Mass/Vol] 0.61 mg/dL Low 0.72 - 1.25 mg/dL [facility] GFR/1.73 sq M.predicted (S/P/Bld) [Vol rate/Area] - PINF [facility] Comment on above: Calculation based on the Chronic Kidney Disease Epidemiology Collaboration (CKD-EPI) equation refit without adjustment for race Glucose [Mass/Vol] 111 mg/dL High 74 - 100 mg/dL [facility] Interpretation and review of laboratory results Abnormal [facility] Potassium [Moles/Vol] 3.8 mmol/L 3.5 - 5.1 mmol/L [facility] Comment on above: Plasma potassium víctor ues may be up to 0.5 mmol/L lower than serum values. Protein [Mass/Vol] 6.5 g/dL 6.4 - 8.3 g/dL [facility] Sodium [Moles/Vol] 136 mmol/L 136 - 145 mmol/L [facility] Urea nitrogen [Mass/Vol] 3 mg/dL Low 8 - 21 mg/dL [facility] Nursing Noteon 04-20-2024 Nursing Note Discharge instructio meghna reviewed with patient. Patient did not have any further concerns at this time. Normal [facility] Progress Noteon 04-20-2024 Progress Note Normal [facility] CBC (HEMOGRAM)on 04-19-2024 Erythrocyte distribution width (RBC) [Ratio] 15.6 % High 11.5-15.0 [facility] Comment on above: Performed By: #### L [id number] ####Watch Assembler: JUDITH MARKHAM ([id number])[facility] ([address] Hematocrit (Bld) [Volume fraction] 36.3 % Low 40.0-52.0 [facility] Comment on above: Performed By: #### L [id number] ####Watch Assembler: JUDITH MARKHAM ([id number])[facility])[address] [place] [address] Hemoglobin (Bld) [Mass/Vol] 11.7 g/dL Low 13.0-18.0 [facility] Comment on above: Performed By: #### L AB294 ####Watch Assembler: JUDITH MARKHAM ([id number])[facility] ([facility])[address] [place] [address] IPF 6 Normal [facility] Comment on above: Performed By: #### L AB294 ####Watch Assembler: JUDITH MARKHAM ([id number])[facility] ([facility])[address] [place] [address] MCH (RBC) [Entitic mass] 29.5 pg Normal 26.0-34.0 [facility] Comment on above: Performed By: #### L AB294 ####Watch Assembler: JUDITH MARKHAM ([id number])[facility])[address] [place] [address] MCHC 32.2 % Normal 30.5-36.0 [facility] Comment on above: Performed By: #### L AB294 ####Watch Assembler: JUDITH MARKHAM ([id number])[facility])[address] [place] [address] MCV (RBC) [Entitic vol] 91.4 fL Normal 77.0-99.0 [facility] Comment on above: Performed By: #### L AB294 ####Watch Assembler: JUDITH MARKHAM ([id number])[facility])[address] [place] [address] Platelet mean volume (Bld) [Entitic vol] 10.9 fL Normal 9.0-12.7 [facility] Comment on above: Performed By: #### L AB294 ####Watch Assembler: JUDITH MARKHAM ([id number])[facility] ([facility])[address] [place] [address] Platelets (Bld) [#/Vol] 129 10*3/uL Low 140-440 [facility] Comment on above: Performed By: #### L AB294 ####Watch Assembler: JUDITH MARKHAM ([id number])[facility])[address] [place] [address] RBC (Bld) [#/Vol] 3.97 10*6/uL Low 4.40-5.90 [facility] Comment on above: Performed By: #### L AB294 ####Watch Assembler: JUDITH MARKHAM ([id number])[facility])[address] [place] [address] WBC (Bld) [#/Vol] 3.9 10*3/uL Normal 3.6-10.7 [facility] Comment on above: Performed By: #### L [id number] ####Watch Assembler: JUDITH MARKHAM ([id number])[facility] ([facility])[address] [place] [address] CBC panel Auto (Bld)on 04-19 Erythrocyte distribution width (RBC) [Ratio] 15.6 % High 11.5 - 15.0 % [facility] Hematocrit (Bld) [Volume fraction] 36.3 % Low 40.0 - 52.0 % [facility] Hemoglobin (Bld) [Mass/Vol] 11.7 g/dL Low 13.0 - 18.0 g/dL [facility] Interpretation and review of laboratory results Abnormal [facility] IPF 6 [facility] MCH (RBC) [Entitic mass] 29.5 pg 26.0 - 34.0 pg [facility] MCHC (RBC) [Mass/Vol] 32.2 % 30.5 - 36.0 % [facility] MCV (RBC) [Entitic vol] 91.4 fL 77.0 - 99.0 fL [facility] Platelet mean volume (Bld) [Entitic vol] 10.9 fL 9.0 - 12.7 fL [facility] Platelets (Bld) [#/Vol] 129 10*3/uL Low 140 - 440 10*3/uL [facility] RBC (Bld) [#/Vol] 3.97 10*6/uL Low 4.40 - 5.9 0 10*6/uL [facility] WBC (Bld) [#/Vol] 3.9 10*3/uL 3.6 - 10.7 10*3/uL [facility] COMPREHENSIVE METABOLIC PANE Rylan 04-19-2024 Albumin [Mass/Vol] 3.0 g/dL Low 3.5-5.0 [facility] Comment on above: Performed By: #### L AB17, LAB99 ####Watch Assembler: JUDITH MARKHAM ([id number])[facility] ([facility])[address] [place] [address] ALP [Catalytic activity/Vol] 148 U/L Normal 40-150 [facility] Comment on above: Performed By: #### Iggy JOHNSON17, LAB99 ####Watch Assembler: JUDITH MARKHAM ([id number])[facility] ([facility])[address] [place] [address] ALT [Catalytic activity/Vol] 80 U/L High <40 [facility] Comment on above: Performed By: #### Iggy AB17, LAB99 ####Watch Assembler: JUDITH MARKHAM ([id number])[facility] ([facility])[address] [place] [address] Anion gap [Moles/Vol] 8 mmol/L Normal 3-13 [facility] Comment on above: Performed By: #### L AB17, LAB99 ####Watch Assembler: JUDITH MARKHAM ([id number])[facility] ([facility])[address] [place] [address] [place] AST [Catalytic activity/Vol] 142 U/L High <34 [facility] Comment on above: Performed By: #### L AB17, LAB99 ####Watch Assembler: JUDITH MARKHAM ([id number])[facility] ([facility])[address] [place] [address] Bilirubin [Mass/Vol] 1.5 mg/dL High <1.2 [facility] Comment on above: Performed By: #### L AB17, LAB99 ####Watch Assembler: JUDITH MARKHAM ([id number])[facility] ([facility])[address] [place] [address] Calcium [Mass/Vol] 8.5 mg/dL Normal 8.4-10.2 [facility] Comment on above: Performed By: #### L AB17, LAB99 ####Watch Assembler: JUDITH MARKHAM ([id number])[facility] [place] [address] Chloride [Moles/Vol] 108 mmol/L High 98-107 [facility] Comment on above: Performed By: #### Iggy AB17, LAB99 ####Watch Assembler: JUDITH MARKHAM ([id number])[facility] ([facility])[address] [place] [address] CO2 [Moles/Vol] 21 mmol/L Low 22-29 [facility] Comment on above: Performed By: #### Iggy AB17, LAB99 ####Watch Assembler: JUDITH MARKHAM ([id number])[facility] ([facility])[address] [place] [address] Creatinine [Mass/Vol] 0.58 mg/dL Low 0.72-1.25 [facility] Comment on above: Performed By: #### L AB17, LAB99 ####Watch Assembler: JUDITH MARKHAM ([id number])[facility] ([facility])[address] [place] [address] GLOMERULAR FILTRATION RATE ML/MIN/1.73 SQ M.PREDICTED >90.0 Normal >60.0 [facility] Comment on above: Result Comment: Calc ulation based on the Chronic Kidney Disease Epidemiology Collaboration (CKD-EPI) equation refit without adjustment for race Performed By: #### L AB17, LAB99 ####Watch Assembler: JUDITH MARKHAM ([id number])[facility] ([facility])[address] [place] [address] Glucose [Mass/Vol] 81 mg/dL Normal 74-100 [facility] Comment on above: Performed By: #### L AB17, LAB99 ####Watch Assembler: JUDITH MARKHAM ([id number])[facility])[address] [place] [address] Potassium [Moles/Vol] 3.9 mmol/L Normal 3.5-5.1 [facility] Comment on above: Result Comment: [facility] potassium values may be up to 0.5 mmol/L lower than serum values. Performed By: #### L AB17, LAB99 ####Watch Assembler: JUDITH MARKHAM ([id number])[facility] ([facility])[address] [place] [address] Protein [Mass/Vol] 6.0 g/dL Low 6.4-8.3 [facility] Comment on above: Performed By: #### L AB17, LAB99 ####Watch Assembler: JUDITH MARKHAM ([id number])[facility])[address] [place] [address] Sodium [Moles/Vol] 137 mmol/L Normal 136-145 [facility] Comment on above: Performed By: #### L AB17, LAB99 ####Watch Assembler: JUDITH MARKHAM ([id number])[facility])[address] [place] [address] Urea nitrogen [Mass/Vol] mg/dL Low 8-21 [facility] Comment on above: Performed By: #### L AB17, LAB99 ####Watch Assembler: JUDITH MARKHAM ([id number])[facility])[address] [place] [address] Comprehensive metabolic 1998 panelon 04-19-2024 Albumin [Mass/Vol] 3 g/dL Low 3.5 - 5.0 g/dL [facility] ALP [Catalytic activity/Vol] 148 U/L 40 - 150 U/L [facility] ALT [Catalytic activity/Vol] 80 U/L High NINF - 40 U/L [facility] Anion gap [Moles/Vol] 8 mmol/L 3 - 13 mmol/L [facility] AST [Catalytic activity/Vol] 142 U/L High NINF - 34 U/L [facility] Bilirubin [Mass/Vol] 1.5 mg/dL High NINF - 1.2 mg/dL [facility] Calcium [Mass/Vol] 8.5 mg/dL 8.4 - 10. 2 mg/dL [facility] Chloride [Moles/Vol] 108 mmol/L High 98 - 10 7 mmol/L [facility] CO2 [Moles/Vol] 21 mmol/L Low 22 - 29 mmol/L [facility] Creatinine [Mass/Vol] 0.58 mg/dL Low 0.72 - 1.25 mg/dL [facility] GFR/1.73 sq M.predicted (S/P/Bld) [Vol rate/Area] - PINF [facility] Comment on above: Calculation based on the Chronic Kidney Disease Epidemiology Collaboration (CKD-EPI) equation refit without adjustment for race Glucose [Mass/Vol] 81 mg/dL 74 - 100 mg/dL [facility] Interpretation and review of laboratory results Abnormal [facility] Potassium [Moles/Vol] 3.9 mmol/L 3.5 - 5.1 mmol/L [facility] Comment on above: Plasma potassium víctor ues may be up to 0.5 mmol/L lower than serum values. Protein [Mass/Vol] 6 g/dL Low 6.4 - 8.3 g/dL [facility] Sodium [Moles/Vol] 137 mmol/L 136 - 145 mmol/L [facility] Urea nitrogen [Mass/Vol] mg/dL Low 8 - 21 mg/dL [facility] LIPASEon 04-19-2024 Lipase [Catalytic activity/Vol] 51 U/L Normal <55 [facility] Comment on above: Performed By: #### L AB17, LAB99 ####Watch Assembler: JUDITH MARKHAM ([id number])[facility] ([address] Laboratory - Chemistry and C hemistry - challengeon 04-19-2024 Lipase [Catalytic activity/Vol] 51 U/L NINF - 55 U/L [facility] Lipase [Catalytic activity/V ol]on 04-19-2024 Interpretation and review of laboratory results Normal [facility] Nursing Noteon 04-19-2024 Nursing Note Pt c/o pAIN IN ABD A ND RATES AT 09/18. Pt medicated with dilaudid 0.5mg IV per PRN order. Pt reports medication effective Normal [facility] Progress Noteon 04-19-2024 Progress Note Normal [facility] Progress Note Normal [facility] [id number] 04-18-2024 [id number] PT HERE FOR ALCOHOL DETOX, + COVID. CURRENTLY ON RA. PO PHENOBARB TAPER. ADDICTION MED FOLLOWING. ANTICIPATE DISCHARGE TO HOME WITH MOM AND NO NEEDS. Normal [facility] [id number] Normal [facility] CBC (HEMOGRAM)on 04-18-2024 Erythrocyte distribution width (RBC) [Ratio] 15.9 % High 11.5-15.0 [facility] Comment on above: Performed By: #### L [id number] ####Watch Assembler: JUDITH MARKHAM ([id number])[address] Hematocrit (Bld) [Volume fraction] 37.8 % Low 40.0-52.0 [facility] Comment on above: Performed By: #### L AB294 ####Watch Assembler: JUDITH MARKHAM ([id number])[address] Hemoglobin (Bld) [Mass/Vol] 11.8 g/dL Low 13.0-18.0 [facility] Comment on above: Performed By: #### L AB294 ####Watch Assembler: JUDITH MARKHAM ([id number])[address] MCH (RBC) [Entitic mass] 28.9 pg Normal 26.0-34.0 [facility] Comment on above: Performed By: #### L AB294 ####Watch Assembler: JUDITH MARKHAM ([id number])[address] MCHC 31.2 % Normal 30.5-36.0 [facility] Comment on above: Performed By: #### L AB294 ####Watch Assembler: JUDITH MARKHAM ([id number])[facility] ([facility])[address] [place] [address] MCV (RBC) [Entitic vol] 92.6 fL Normal 77.0-99.0 S [facility] Comment on above: Performed By: #### L [id number] ####Watch Assembler: JUDITH MARKHAM ([id number])[facility])[address] [place] [address] Platelet mean volume (Bld) [Entitic vol] 10.1 fL Normal 9.0-12.7 [facility] Comment on above: Performed By: #### L [id number] ####Watch Assembler: JUDITH MARKHAM ([id number])[facility])[address] [place] [address] Platelets (Bld) [#/Vol] 133 10*3/uL Low 140-440 [facility] Comment on above: Performed By: #### L [id number] ####Watch Assembler: JUDITH MARKHAM ([id number])[facility] ([facility])[address] [place] [address] RBC (Bld) [#/Vol] 4.08 10*6/uL Low 4.40-5.90 [facility] Comment on above: Performed By: #### L [id number] ####Watch Assembler: JUDITH MARKHAM ([id number])[facility])[address] [place] [address] WBC (Bld) [#/Vol] 3.4 10*3/uL Low 3.6-10.7 [facility] Comment on above: Performed By: #### L [id number] ####Watch Assembler: JUDITH MARKHAM ([id number])[facility])[address] [place] [address] CBC panel Auto (Bld)Ordered By: Megha Lopez on 04-18-2024 Erythrocyte distribution width (RBC) [Ratio] 15.9 % High 11.5 - 15.0 % [facility] Hematocrit (Bld) [Volume fraction] 37.8 % Low 40.0 - 52.0 % [facility] Hemoglobin (Bld) [Mass/Vol] 11.8 g/dL Low 13.0 - 18.0 g/dL [facility] Interpretation and review of laboratory results Abnormal [facility] MCH (RBC) [Entitic mass] 28.9 pg 26.0 - 34.0 pg [facility] MCHC (RBC) [Mass/Vol] 31.2 % 30.5 - 36.0 % [facility] MCV (RBC) [Entitic vol] 92.6 fL 77.0 - 99.0 fL [facility] Platelet mean volume (Bld) [Entitic vol] 10.1 fL 9.0 - 12.7 fL [facility] Platelets (Bld) [#/Vol] 133 10*3/uL Low 140 - 440 10*3/uL [facility] RBC (Bld) [#/Vol] 4.08 10*6/uL Low 4.40 - 5.9 0 10*6/uL [facility] WBC (Bld) [#/Vol] 3.4 10*3/uL Low 3.6 - 10.7 10*3/uL [facility] COMPREHENSIVE METABOLIC PANE Rylan 04-18-2024 Albumin [Mass/Vol] 3.0 g/dL Low 3.5-5.0 [facility] Comment on above: Performed By: #### L AB17, LAB99 ####Watch Assembler: JUDITH MARKHAM ([id number])[address] ALP [Catalytic activity/Vol] 145 U/L Normal 40-150 [facility] Comment on above: Performed By: #### L AB17, LAB99 ####Watch Assembler: JUDITH MARKHAM ([id number])[facility] ([facility])[address] [place] [address] ALT [Catalytic activity/Vol] 95 U/L High <40 [facility] Comment on above: Performed By: #### L AB17, LAB99 ####Watch Assembler: JUDITH MARKHAM ([id number])[facility])[address] [place] [address] Anion gap [Moles/Vol] 8 mmol/L Normal 3-13 [facility] Comment on above: Performed By: #### L AB17, LAB99 ####Watch Assembler: JUDITH MARKHAM ([id number])[facility])[address] [place] [address] AST [Catalytic activity/Vol] 163 U/L High <34 [facility] Comment on above: Performed By: #### L AB17, LAB99 ####Watch Assembler: JUDITH MARKHAM ([id number])[facility] ([facility])[address] [place] [address] Bilirubin [Mass/Vol] 1.7 mg/dL High <1.2 [facility] Comment on above: Performed By: #### L AB17, LAB99 ####Watch Assembler: JUDITH MARKHAM ([id number])[facility])[address] [place] [address] Calcium [Mass/Vol] 8.5 mg/dL Normal 8.4-10.2 [facility] Comment on above: Performed By: #### L AB17, LAB99 ####Watch Assembler: JUDITH MARKHAM ([id number])[facility] ([facility])[address] [place] [address] Chloride [Moles/Vol] 108 mmol/L High 98-107 [facility] Comment on above: Performed By: #### L AB17, LAB99 ####Watch Assembler: JUDITH MARKHAM ([id number])[facility])[address] [place] [address] CO2 [Moles/Vol] 22 mmol/L Normal 22-29 [facility] Comment on above: Performed By: #### L AB17, LAB99 ####Watch Assembler: JUDITH MARKHAM ([id number])[facility])[address] [place] [address] Creatinine [Mass/Vol] 0.54 mg/dL Low 0.72-1.25 [facility] Comment on above: Performed By: #### L AB17, LAB99 ####Watch Assembler: JUDITH MARKHAM ([id number])[facility])[address] [place] [address] GLOMERULAR FILTRATION RATE ML/MIN/1.73 SQ M.PREDICTED >90.0 Normal >60.0 [facility] Comment on above: Result Comment: Calc ulation based on the Chronic Kidney Disease Epidemiology Collaboration (CKD-EPI) equation refit without adjustment for race Performed By: #### L AB17, LAB99 ####Watch Assembler: JUDITH MARKHAM ([id number])[facility])[address] [place] [address] Glucose [Mass/Vol] 101 mg/dL High 74-100 [facility] Comment on above: Performed By: #### L AB17, LAB99 ####Watch Assembler: JUDITH MARKHAM ([id number])[facility])[address] [place] [address] Potassium [Moles/Vol] 3.8 mmol/L Normal 3.5-5.1 [facility] Comment on above: Result Comment: [facility] potassium values may be up to 0.5 mmol/L lower than serum values. Performed By: #### L AB17, LAB99 ####Watch Assembler: JUDITH MARKHAM ([id number])[facility])[address] [place] [address] [place] Protein [Mass/Vol] 5.9 g/dL Low 6.4-8.3 [facility] Comment on above: Performed By: #### L AB17, LAB99 ####Watch Assembler: JUDITH MARKHAM ([id number])[facility])[address] [place] [address] [place] Sodium [Moles/Vol] 138 mmol/L Normal 136-145 [facility] Comment on above: Performed By: #### L AB17, LAB99 ####Watch Assembler: JUDITH MARKHAM ([id number])[facility])[address] [place] [address] [place] Urea nitrogen [Mass/Vol] 3 mg/dL Low 8-21 [facility] Comment on above: Performed By: #### L AB17, LAB99 ####Watch Assembler: JUDITH MARKHAM ([id number])[address] Comprehensive metabolic 1998 panelon 04-18-2024 Albumin [Mass/Vol] 3 g/dL Low 3.5 - 5.0 g/dL [facility] ALP [Catalytic activity/Vol] 145 U/L 40 - 150 U/L [facility] ALT [Catalytic activity/Vol] 95 U/L High NINF - 40 U/L [facility] Anion gap [Moles/Vol] 8 mmol/L 3 - 13 mmol/L [facility] AST [Catalytic activity/Vol] 163 U/L High NINF - 34 U/L [facility] Bilirubin [Mass/Vol] 1.7 mg/dL High NINF - 1.2 mg/dL [facility] Calcium [Mass/Vol] 8.5 mg/dL 8.4 - 10. 2 mg/dL [facility] Chloride [Moles/Vol] 108 mmol/L High 98 - 10 7 mmol/L [facility] CO2 [Moles/Vol] 22 mmol/L 22 - 29 mmol/L [facility] Creatinine [Mass/Vol] 0.54 mg/dL Low 0.72 - 1.25 mg/dL [facility] GFR/1.73 sq M.predicted (S/P/Bld) [Vol rate/Area] - PINF [facility] Comment on above: Calculation based on the Chronic Kidney Disease Epidemiology Collaboration (CKD-EPI) equation refit without adjustment for race Glucose [Mass/Vol] 101 mg/dL High 74 - 100 mg/dL [facility] Interpretation and review of laboratory results Abnormal [facility] Potassium [Moles/Vol] 3.8 mmol/L 3.5 - 5.1 mmol/L [facility] Comment on above: Plasma potassium víctor ues may be up to 0.5 mmol/L lower than serum values. Protein [Mass/Vol] 5.9 g/dL Low 6.4 - 8.3 g/dL [facility] Sodium [Moles/Vol] 138 mmol/L 136 - 145 mmol/L [facility] Urea nitrogen [Mass/Vol] 3 mg/dL Low 8 - 21 mg/dL [facility] LIPASEon 04-18-2024 Lipase [Catalytic activity/Vol] 66 U/L High <55 [facility] Comment on above: Performed By: #### L AB17, LAB99 ####Watch Assembler: JUDITH MARKHAM ([id number])[facility])[address] [place] [address] Laboratory - Chemistry and C hemistry - challengeon 04-18-2024 Lipase [Catalytic activity/Vol] 66 U/L High NINF - 55 U/L [facility] Lipase [Catalytic activity/V ol]on 04-18-2024 Interpretation and review of laboratory results Abnormal [facility] Nursing Noteon 04-18-2024 Nursing Note Normal [facility] Progress Noteon 04-18-2024 Progress Note Nutrition rescreen completed. Chart reviewed. Patient's diet advanced, monitor tolerance to diet. Patient to be monitored and followed by the diet it service technician. Dietitian available upon request. RALPH Everett Normal [facility] Progress Note Normal [facility] Progress Note Normal [facility] CBC (HEMOGRAM)on 04-17-2024 Erythrocyte distribution width (RBC) [Ratio] 16.3 % High 11.5-15.0 [facility] Comment on above: Performed By: #### L [id number] ####Watch Assembler: JUDITH MARKHAM ([id number])[address] Hematocrit (Bld) [Volume fraction] 37.4 % Low 40.0-52.0 [facility] Comment on above: Performed By: #### L AB294 ####Watch Assembler: JUDITH MARKHAM ([id number])[address] Hemoglobin (Bld) [Mass/Vol] 11.9 g/dL Low 13.0-18.0 [facility] Comment on above: Performed By: #### L AB294 ####Watch Assembler: JUDITH MARKHAM ([id number])[address] MCH (RBC) [Entitic mass] 29.3 pg Normal 26.0-34.0 [facility] Comment on above: Performed By: #### L AB294 ####Watch Assembler: JUDITH MARKHAM ([id number])[facility])[address] [place] [address] MCHC 31.8 % Normal 30.5-36.0 [facility] Comment on above: Performed By: #### L AB294 ####Watch Assembler: JUDITH MARKHAM ([id number])[facility] ([facility])[address] [place] [address] MCV (RBC) [Entitic vol] 92.1 fL Normal 77.0-99.0 [facility] Comment on above: Performed By: #### L AB294 ####Watch Assembler: JUDITH MARKHAM ([id number])[facility])[address] [place] [address] Platelet mean volume (Bld) [Entitic vol] 10.0 fL Normal 9.0-12.7 [facility] Comment on above: Performed By: #### L AB294 ####Watch Assembler: JUDITH MARKHAM ([id number])[facility])[address] [place] [address] Platelets (Bld) [#/Vol] 155 10*3/uL Normal 140-440 [facility] Comment on above: Performed By: #### L AB294 ####Watch Assembler: JUDITH MARKHAM ([id number])[facility])[address] [place] [address] RBC (Bld) [#/Vol] 4.06 10*6/uL Low 4.40-5.90 [facility] Comment on above: Performed By: #### L AB294 ####Watch Assembler: JUDITH MARKHAM ([id number])[facility])[address] [place] [address] WBC (Bld) [#/Vol] 4.2 10*3/uL Normal 3.6-10.7 [facility] Comment on above: Performed By: #### L AB294 ####Watch Assembler: JUDITH MARKHAM ([id number])[facility])[address] [place] [address] CBC panel Auto (Bld)Ordered By: William Montelongo on 04-17-2024 Erythrocyte distribution width (RBC) [Ratio] 16.3 % High 11.5 - 15.0 % [facility] Hematocrit (Bld) [Volume fraction] 37.4 % Low 40.0 - 52.0 % [facility] Hemoglobin (Bld) [Mass/Vol] 11.9 g/dL Low 13.0 - 18.0 g/dL [facility] Interpretation and review of laboratory results Abnormal [facility] MCH (RBC) [Entitic mass] 29.3 pg 26.0 - 34.0 pg [facility] MCHC (RBC) [Mass/Vol] 31.8 % 30.5 - 36.0 % [facility] MCV (RBC) [Entitic vol] 92.1 fL 77.0 - 99.0 fL [facility] Platelet mean volume (Bld) [Entitic vol] 10 fL 9.0 - 12.7 fL [facility] Platelets (Bld) [#/Vol] 155 10*3/uL 140 - 440 10*3/uL [facility] RBC (Bld) [#/Vol] 4.06 10*6/uL Low 4.40 - 5.9 0 10*6/uL [facility] WBC (Bld) [#/Vol] 4.2 10*3/uL 3.6 - 10.7 10*3/uL [facility] COMPREHENSIVE METABOLIC PANE Rylan 04-17-2024 Albumin [Mass/Vol] 3.5 g/dL Normal 3.5-5.0 [facility] Comment on above: Performed By: #### L AB103, LAB99, LAB17 ####Watch Assembler: JUDITH MARKHAM ([id number])[facility])[address] [place] [address] ALP [Catalytic activity/Vol] 172 U/L High 40-150 [facility] Comment on above: Performed By: #### L AB103, LAB99, LAB17 ####Watch Assembler: JUDITH MARKHAM ([id number])[facility])[address] [place] [address] [place] ALT [Catalytic activity/Vol] 117 U/L High <40 [facility] Comment on above: Performed By: #### L AB103, LAB99, LAB17 ####Watch Assembler: JUDITH MARKHAM ([id number])[facility] ([facility])[address] [place] [address] Anion gap [Moles/Vol] 13 mmol/L Normal 3-13 [facility] Comment on above: Performed By: #### L AB103, LAB99, LAB17 ####Watch Assembler: JUDITH MARKHAM ([id number])[facility] ([facility])[address] [place] [address] AST [Catalytic activity/Vol] 387 U/L High <34 [facility] Comment on above: Performed By: #### Iggy MCDONALD, LAB99, LAB17 ####Watch Assembler: JUDITH MARKHAM ([id number])[facility] ([facility])[address] [place] [address] Bilirubin [Mass/Vol] 1.0 mg/dL Normal <1.2 [facility] Comment on above: Performed By: #### Iggy MCDONALD, LAB99, LAB17 ####Watch Assembler: JUDITH MARKHAM ([id number])[facility] ([facility])[address] [place] [address] [place] Calcium [Mass/Vol] 7.8 mg/dL Low 8.4-10.2 [facility] Comment on above: Performed By: #### L AB103, LAB99, LAB17 ####Watch Assembler: JUDITH MARKHAM ([id number])[facility] ([facility])[address] [place] [address] [place] Chloride [Moles/Vol] 108 mmol/L High 98-107 [facility] Comment on above: Performed By: #### L AB103, LAB99, LAB17 ####Watch Assembler: JUDITH MARKHAM ([id number])[facility] ([facility])[address] [place] [address] [place] CO2 [Moles/Vol] 21 mmol/L Low 22-29 [facility] Comment on above: Performed By: #### Iggy MCDONALD, LAB99, LAB17 ####Watch Assembler: JUDITH MARKHAM ([phone])[facility])[address] [place] [address] Creatinine [Mass/Vol] 0.61 mg/dL Low 0.72-1.25 [facility] Comment on above: Performed By: #### Iggy MCDONALD, LAB99, LAB17 ####Watch Assembler: JUDITH MARKHAM ([id number])[facility])[address] [place] [address] GLOMERULAR FILTRATION RATE ML/MIN/1.73 SQ M.PREDICTED >90.0 Normal >60.0 [facility] Comment on above: Result Comment: Calc ulation based on the Chronic Kidney Disease Epidemiology Collaboration (CKD-EPI) equation refit without adjustment for race Performed By: #### Iggy MCDONALD, LAB99, LAB17 ####Watch Assembler: JUDITH MARKHAM ([phone])[facility] ([facility])[address] [place] [address] Glucose [Mass/Vol] 89 mg/dL Normal 74-100 [facility] Comment on above: Performed By: #### Iggy MCDONALD, LAB99, LAB17 ####Watch Assembler: JUDITH MARKHAM ([id number])[facility])[address] [place] [address] Potassium [Moles/Vol] 3.7 mmol/L Normal 3.5-5.1 [facility] Comment on above: Result Comment: [facility] potassium values may be up to 0.5 mmol/L lower than serum values. Performed By: #### Iggy MCDONALD, LAB99, LAB17 ####Watch Assembler: JUDITH MARKHAM ([phone])[facility])[address] [place] [address] Protein [Mass/Vol] 6.2 g/dL Low 6.4-8.3 [facility] Comment on above: Performed By: #### Iggy MCDONALD, LAB99, LAB17 ####Watch Assembler: JUDITH MARKHAM ([id number])[facility] ([facility])[address] [place] [address] Sodium [Moles/Vol] 142 mmol/L Normal 136-145 [facility] Comment on above: Performed By: #### L AB103, LAB99, LAB17 ####Watch Assembler: JUDITH MARKHAM ([id number])[facility])[address] [place] [address] Urea nitrogen [Mass/Vol] 5 mg/dL Low 8-21 [facility] Comment on above: Performed By: #### L AB103, LAB99, LAB17 ####Watch Assembler: JUDITH MARKHAM ([id number])[facility] [place] [address] Comprehensive metabolic 1998 panelon 04-17-2024 Albumin [Mass/Vol] 3.5 g/dL 3.5 - 5.0 g/dL [facility] ALP [Catalytic activity/Vol] 172 U/L High 40 - 150 U/L [facility] ALT [Catalytic activity/Vol] 117 U/L High NINF - 40 U/L [facility] Anion gap [Moles/Vol] 13 mmol/L 3 - 13 mmol/L [facility] AST [Catalytic activity/Vol] 387 U/L High [facility] - 34 U/L [facility] Bilirubin [Mass/Vol] 1 mg/dL [facility] 1.[facility] mg/dL [facility] Calcium [Mass/Vol] 7.8 mg/dL Low 8.4 - 10. 2 mg/dL [facility] Chloride [Moles/Vol] 108 mmol/L High 98 - 10 7 mmol/L [facility] CO2 [Moles/Vol] 21 mmol/L Low 22 - 29 mmol/L [facility] Creatinine [Mass/Vol] 0.61 mg/dL Low 0.72 - 1.25 mg/dL [facility] GFR/1.73 sq M.predicted (S/P/Bld) [Vol rate/Area] - PINF [facility] Comment on above: Calculation based on the Chronic Kidney Disease Epidemiology Collaboration (CKD-EPI) equation refit without adjustment for race Glucose [Mass/Vol] 89 mg/dL 74 - 100 mg/dL [facility] Potassium [Moles/Vol] 3.7 mmol/L 3.5 - 5.1 mmol/L [facility] Comment on above: Plasma potassium víctor ues may be up to 0.5 mmol/L lower than serum values. Protein [Mass/Vol] 6.2 g/dL Low 6.4 - 8.3 g/dL [facility] Sodium [Moles/Vol] 142 mmol/L 136 - 145 mmol/L [facility] Urea nitrogen [Mass/Vol] 5 mg/dL Low 8 - 21 mg/dL [facility] Consulton 04-17-2024 Consult Normal [facility] LACTIC ACID WITH REFLEXon Lactate [Moles/Vol] 1.8 mmol/L Normal 0.5-2.2 [facility] Comment on above: Performed By: #### L [id number] ####Watch Assembler: JUDITH MARKHAM ([id number])[facility])[address] [place] [address] LIPASEon 04-17-2024 Lipase [Catalytic activity/Vol] 105 U/L High <55 [facility] Comment on above: Performed By: #### L AB103, LAB99, LAB17 ####Watch Assembler: JUDITH MARKHAM ([id number])[facility])[address] [place] [address] Laboratory - Chemistry and C hemistry - challengeon 04-17-2024 Lipase [Catalytic activity/Vol] 105 U/L High NINF - 55 U/L [facility] Magnesium [Mass/Vol] 2.1 mg/dL 1.6 - 2 .6 mg/dL [facility] Lactate [Moles/Vol] 1.8 mmol/L 0.5 - 2. 2 mmol/L [facility] MAGNESIUMon 04-17-2024 Magnesium [Mass/Vol] 2.1 mg/dL Normal 1.6-2.6 [facility] Comment on above: Result Comment: PIEDAD Echeverria COMMENTS:Higher values can be expected in females during menses. Performed By: #### L AB103, LAB99, LAB17 ####Watch Assembler: JUDITH MARKHAM ([id number])[facility] ([facility])[address] [place], [place] [id number] [facility] Magnesium [Mass/Vol]on 04-17 Interpretation and review of laboratory results Normal [facility] Higher values can be expected in females during menses. [facility] No Panel Informationon 04-17 Interpretation and review of laboratory results Abnormal [facility] Interpretation and review of laboratory results Normal [facility] Progress Noteon 04-17-2024 Progress Note Normal [facility] CBC W Auto Differential pane l (Bld)on 04-16-2024 Basophils (Bld) [#/Vol] 0.1 10*3/uL 0.0 - 0.2 10*3/uL [facility] Basophils/100 WBC (Bld) 0.7 % 0.0 - 2.0 % [facility] Eosinophils (Bld) [#/Vol] 0.1 10*3/uL 0.0 - 0.5 10*3/uL [facility] Eosinophils/100 WBC (Bld) 1.2 % 0.0 - 6.0 % [facility] Erythrocyte distribution width (RBC) [Ratio] 16.7 % High 11.5 - 15.0 % [facility] Hematocrit (Bld) [Volume fraction] 45.4 % 40.0 - 52.0 % [facility] Hemoglobin (Bld) [Mass/Vol] 14.9 g/dL 13.0 - 18.0 g/dL [facility] Immature granulocytes (Bld) [#/Vol] 0 10*3/uL NINF - 0.1 10*3/uL [facility] [employer] Immature granulocytes/100 WBC (Bld) 0.3 % 0.0 - 2.0 % [facility] Interpretation and review of laboratory results Abnormal [facility] Lymphocytes (Bld) [#/Vol] 3.5 10*3/uL 1.0 - 4.3 10*3/uL [facility] Lymphocytes/100 WBC (Bld) 47.3 % High 15.0 - 45.0 % [facility] MCH (RBC) [Entitic mass] 29.4 pg 26.0 - 34.0 pg [facility] MCHC (RBC) [Mass/Vol] 32.8 % 30.5 - 36.0 % [facility] MCV (RBC) [Entitic vol] 89.5 fL 77.0 - 99.0 fL [facility] Monocytes (Bld) [#/Vol] 0.3 10*3/uL 0.0 - 0.9 10*3/uL [facility] Monocytes/100 WBC (Bld) 4.1 % Low 5.0 - 13.0 % [facility] Neutrophils (Bld) [#/Vol] 3.5 10*3/uL 1.8 - 7.5 10*3/uL [facility] Neutrophils/100 WBC (Bld) 46.4 % 38.0 - 82.0 % [facility] Nucleated RBC/100 WBC (Bld) [Ratio] 0 % [facility] Platelet mean volume (Bld) [Entitic vol] 9.6 fL 9.0 - 12.7 fL [facility] Platelets (Bld) [#/Vol] 311 10*3/uL 140 - 440 10*3/uL [facility] RBC (Bld) [#/Vol] 5.07 10*6/uL 4.40 - 5.9 0 10*6/uL [facility] WBC (Bld) [#/Vol] 7.5 10*3/uL 3.6 - 10.7 10*3/uL [facility] CBC WITH AUTO DIFFERENTIALon 04-16-2024 Basophils (Bld) [#/Vol] 0.1 10*3/uL Normal 0.0-0.2 [facility] Comment on above: Performed By: #### L [id number] ####Watch Assembler: JUDITH MARKHAM ([id number])[address] Basophils/100 WBC (Bld) 0.7 % Normal 0.0-2.0 [facility] Comment on above: Performed By: #### L [id number] ####Watch Assembler: JUDITH [id number])[facility] ([facility])[address] [place] [address] Eosinophils (Bld) [#/Vol] 0.1 10*3/uL Normal 0.0-0.5 [facility] Comment on above: Performed By: #### L [id number] ####Watch Assembler: JUDITH [id number])[facility] Eosinophils/100 WBC (Bld) 1.2 % Normal 0.0-6.0 [facility] Comment on above: Performed By: #### L [id number] ####Watch Assembler: JUDITH MARKHAM ([id number])[facility])[address] [place] [address] Erythrocyte distribution width (RBC) [Ratio] 16.7 % High 11.5-15.0 [facility] Comment on above: Performed By: #### L [id number] ####Watch Assembler: JUDITH MARKHAM ([phone])[facility])[address] [place] [address] Hematocrit (Bld) [Volume fraction] 45.4 % Normal 40.0-52.0 [facility] Comment on above: Performed By: #### L [id number] ####Watch Assembler: JUDITH MARKHAM ([id number])[facility])[address] [place] [address] Hemoglobin (Bld) [Mass/Vol] 14.9 g/dL Normal 13.0-18.0 [facility] Comment on above: Performed By: #### L [id number] ####Watch Assembler: JUDITH MARKHAM ([id number])[facility])[address] [place] [address] IMMATURE GRANS % 0.3 % Normal 0.0-2.0 [facility] Comment on above: Performed By: #### L [id number] ####Watch Assembler: JUDITH MARKHAM ([id number])[address] IMMATURE GRANS ABSOLUTE 0.0 10*3/uL Normal <0.1 [facility] Comment on above: Performed By: #### L [id number] ####Watch Assembler: JUDITH MARKHAM ([id number])[facility])[address] [place] [address] Lymphocytes (Bld) [#/Vol] 3.5 10*3/uL Normal 1.0-4.3 [facility] Comment on above: Performed By: #### L [id number] ####Watch Assembler: JUDITH MARKHAM ([id number])[facility])[address] [place] [address] Lymphocytes/100 WBC (Bld) 47.3 % High 15.0-45.0 [facility] Comment on above: Performed By: #### L [id number] ####Watch Assembler: JUDITH MARKHAM ([id number])[facility])[address] [place] [address] MCH (RBC) [Entitic mass] 29.4 pg Normal 26.0-34.0 [facility] Comment on above: Performed By: #### L [id number] ####Watch Assembler: JUDITH MARKHAM ([id number])[facility])[address] [place] [address] MCHC 32.8 % Normal 30.5-36.0 [facility] Comment on above: Performed By: #### L [id number] ####Watch Assembler: JUDITH MARKHAM ([id number])[facility])[address] [place] [address] MCV (RBC) [Entitic vol] 89.5 fL Normal 77.0-99.0 [facility] Comment on above: Performed By: #### L [id number] ####Watch Assembler: JUDITH MARKHAM ([id number])[facility])[address] [place] [address] Monocytes (Bld) [#/Vol] 0.3 10*3/uL Normal 0.0-0.9 [facility] Comment on above: Performed By: #### L [id number] ####Watch Assembler: JUDITH MARKHAM ([id number])[facility])[address] [place] [address] Monocytes/100 WBC (Bld) 4.1 % Low 5.0-13.0 [facility] Comment on above: Performed By: #### L [id number] ####Watch Assembler: JUDITH MARKHAM ([id number])[facility] ([facility])[address] [place] [address] NEUTROPHILS ABSOLUTE 3.5 10*3/uL Normal 1.8-7.5 [facility] Comment on above: Performed By: #### L [id number] ####Watch Assembler: JUDITH MARKHAM ([id number])[facility])[address] [place] [address] Neutrophils/100 WBC (Bld) 46.4 % Normal 38.0-82.0 [facility] Comment on above: Performed By: #### L [id number] ####Watch Assembler: JUDITH MARKHAM ([id number])[facility])[address] [place] [address] NRBC 0.0 /100 WBCs Normal 0.0-2.0 [facility] Comment on above: Performed By: #### L [id number] ####Watch Assembler: JUIDTH MARKHAM ([id number])[facility] ([facility])[address] [place] [address] Platelet mean volume (Bld) [Entitic vol] 9.6 fL Normal 9.0-12.7 [facility] Comment on above: Performed By: #### L [id number] ####Watch Assembler: JUDITH MARKHAM ([id number])[facility])[address] [place] [address] Platelets (Bld) [#/Vol] 311 10*3/uL Normal 140-440 [facility] Comment on above: Performed By: #### L [id number] ####Watch Assembler: JUDITH MARKHAM ([id number])[facility] ([facility])[address] [place] [address] RBC (Bld) [#/Vol] 5.07 10*6/uL Normal 4.40-5.90 [facility] Comment on above: Performed By: #### L [id number] ####Watch Assembler: JUDITH MARKHAM ([id number])[facility] ([facility])[address] [place] [address] WBC (Bld) [#/Vol] 7.5 10*3/uL Normal 3.6-10.7 [facility] Comment on above: Performed By: #### L [id number] ####Watch Assembler: JUDITH MARKHAM ([id number])[facility] ([facility])[address] [place] [address] COMPREHENSIVE METABOLIC PANE Rylan 04-16-2024 Albumin [Mass/Vol] 4.4 g/dL Normal 3.5-5.0 [facility] Comment on above: Performed By: #### L AB17, LAB99, LAB46 ####Watch Assembler: JUDITH MARKHAM ([id number])[facility] ([facility])[address] [place] [address] ALP [Catalytic activity/Vol] 234 U/L High 40-150 [facility] Comment on above: Performed By: #### L AB17, LAB99, LAB46 ####Watch Assembler: JUDITH MARKHAM ([id number])[facility] ([facility])[address] [place] [address] ALT [Catalytic activity/Vol] 197 U/L High <40 [facility] Comment on above: Performed By: #### L AB17, LAB99, LAB46 ####Watch Assembler: JUDITH MARKHAM ([id number])[facility] ([facility])[address] [place] [address] Anion gap [Moles/Vol] 16 mmol/L High 3-13 [facility] Comment on above: Performed By: #### L AB17, LAB99, LAB46 ####Watch Assembler: JUDITH MARKHAM ([id number])[facility] ([facility])[address] [place] [address] [place] AST [Catalytic activity/Vol] 635 U/L High <34 [facility] Comment on above: Performed By: #### L AB17, LAB99, LAB46 ####Watch Assembler: JUDITH MARKHAM ([id number])[facility] ([facility])[address] [place] [address] Bilirubin [Mass/Vol] 1.3 mg/dL High <1.2 [facility] Comment on above: Performed By: #### Iggy AB17, LAB99, LAB46 ####Watch Assembler: JUDITH MARKHAM ([id number])[facility] ([facility])[address] [place] [address] Calcium [Mass/Vol] 8.8 mg/dL Normal 8.4-10.2 [facility] Comment on above: Performed By: #### Iggy AB17, LAB99, LAB46 ####Watch Assembler: JUDITH MARKHAM ([phone])[facility] ([facility])[address] [place] [address] Chloride [Moles/Vol] 103 mmol/L Normal 98-107 [facility] Comment on above: Performed By: #### Iggy AB17, LAB99, LAB46 ####Watch Assembler: JUDITH MARKHAM ([id number])[facility] ([facility])[address] [place] [address] CO2 [Moles/Vol] 22 mmol/L Normal 22-29 [facility] Comment on above: Performed By: #### Iggy BARNES, LAB99, LAB46 ####Watch Assembler: JUDITH MARKHAM ([id number])[facility] ([facility])[address] [place] [address] Creatinine [Mass/Vol] 0.76 mg/dL Normal 0.72-1.25 [facility] Comment on above: Performed By: #### Iggy BARNES, LAB99, LAB46 ####Watch Assembler: JUDITH MARKHAM ([id number])[facility] ([facility])[address] [place] [address] GLOMERULAR FILTRATION RATE ML/MIN/1.73 SQ M.PREDICTED >90.0 Normal >60.0 [facility] Comment on above: Result Comment: Calc ulation based on the Chronic Kidney Disease Epidemiology Collaboration (CKD-EPI) equation refit without adjustment for race Performed By: #### Iggy AB17, LAB99, LAB46 ####Watch Assembler: JUDITH MARKHAM ([id number])[facility])[address] [place] [address] Glucose [Mass/Vol] 151 mg/dL High 74-100 [facility] Comment on above: Performed By: #### L AB17, LAB99, LAB46 ####Watch Assembler: JUDITH MARKHAM ([phone])[facility])[address] [place] [address] Potassium [Moles/Vol] 3.8 mmol/L Normal 3.5-5.1 [facility] Comment on above: Result Comment: [facility] potassium values may be up to 0.5 mmol/L lower than serum values. Performed By: #### L AB17, LAB99, LAB46 ####Watch Assembler: JUDITH MARKHAM ([id number])[facility])[address] [place] [address] Protein [Mass/Vol] 8.1 g/dL Normal 6.4-8.3 [facility] Comment on above: Performed By: #### L AB17, LAB99, LAB46 ####Watch Assembler: JUDITH MARKHAM ([id number])[facility] ([facility])[address] [place] [address] Sodium [Moles/Vol] 141 mmol/L Normal 136-145 [facility] Comment on above: Performed By: #### L AB17, LAB99, LAB46 ####Watch Assembler: JUDITH MARKHAM ([phone])[facility])[address] [place] [address] Urea nitrogen [Mass/Vol] 6 mg/dL Low 8-21 [facility] Comment on above: Performed By: #### L AB17, LAB99, LAB46 ####Watch Assembler: JUDITH MARKHAM ([id number])[facility])[address] [place] [address] CT Abdomen and Pelvis WO con traston 04-16-2024 1. Findings compatible with pancreatitis, mildly increased in the interval. Correlation with appropriate laboratory values and follow-up suggested. 2. Hepatomegaly and hepatic steatosis. Report Dictated on Electronically Signed By: Paul Plata MD Electronically Signed Date/Time: 04/16/2024 6:57 PM EST [facility] Patient Name: RORO [...] aorta is nonaneurysmal. Axial skeleton grossly intact. [facility] Paul Plata MD - 04/16/2024 Patient [...] steatosis. Report Dictated on Electronically Signed By: aPul Plata MD Electronically Signed Date/Time: 04/16/2024 6:57 PM EST [facility] Radiology Study observation (narrative) [facility] CT Abdomen and Pelvis WO con trastOrdered By: Paul Plata on 04-16-2024 [facility] Work Phone: Comprehensive metabolic 1998 panelon 04-16-2024 Albumin [Mass/Vol] 4.4 g/dL 3.5 - 5.0 g/dL [facility] ALP [Catalytic activity/Vol] 234 U/L High 40 - 150 U/L [facility] ALT [Catalytic activity/Vol] 197 U/L High NINF - 40 U/L [facility] Anion gap [Moles/Vol] 16 mmol/L High 3 - 13 mmol/L [facility] AST [Catalytic activity/Vol] 635 U/L [facility] U/L [facility] Bilirubin [Mass/Vol] 1.3 mg/dL High [facility] - 1.2 mg/dL [facility] Calcium [Mass/Vol] 8.8 mg/dL 8.4 - 10. 2 mg/dL [facility] Chloride [Moles/Vol] 103 mmol/L 98 - 10 7 mmol/L [facility] CO2 [Moles/Vol] 22 mmol/L 22 - 29 mmol/L [facility] Creatinine [Mass/Vol] 0.76 mg/dL 0.72 - 1.25 mg/dL [facility] GFR/1.73 sq M.predicted (S/P/Bld) [Vol rate/Area] - PINF [facility] Comment on above: Calculation based on the Chronic Kidney Disease Epidemiology Collaboration (CKD-EPI) equation refit without adjustment for race Glucose [Mass/Vol] 151 mg/dL High 74 - 100 mg/dL [facility] Interpretation and review of laboratory results Abnormal [facility] Potassium [Moles/Vol] 3.8 mmol/L 3.5 - 5.1 mmol/L [facility] Comment on above: Plasma potassium víctor ues may be up to 0.5 mmol/L lower than serum values. Protein [Mass/Vol] 8.1 g/dL 6.4 - 8.3 g/dL [facility] Sodium [Moles/Vol] 141 mmol/L 136 - 145 mmol/L [facility] Urea nitrogen [Mass/Vol] 6 mg/dL Low 8 - 21 mg/dL [facility] DRUGS OF ABUSEon 04-16-2024 AMPHETAMINE SCREEN Positive Normal [facility] Comment on above: Performed By: #### L [id number] ####Watch Assembler: JUDITH MARKHAM ([id number])[address] BARBITURATES SCREEN Negative Normal [facility] Comment on above: Performed By: #### L [id number] ####Watch Assembler: JUDITH MARKHAM ([id number])[address] BENZODIAZEPINE SCREEN Negative Normal [facility] Comment on above: Performed By: #### L [id number] ####Watch Assembler: JUDITH MARKHAM ([id number])[address] COCAINE METAB. SCREEN Negative Normal [facility] Comment on above: Performed By: #### L [id number] ####Watch Assembler: JUDITH MARKHAM ([id number])[address] FENTANYL SCREEN, UR QUAL Positive Normal [facility] Comment on above: Result Comment: [...] under separate order. Performed By: #### L [id number] ####Watch Assembler: JUDITH MARKHAM ([id number])[facility] ([facility])[address] [place] [address] METHADONE SCREEN Negative Normal [facility] Comment on above: Performed By: #### L [id number] ####Watch Assembler: JUDITH MARKHAM ([id number])[facility] ([facility])[address] [place] [address] OPIATES SCREEN Negative Normal [facility] Comment on above: Performed By: #### L [id number] ####Watch Assembler: JUDITH MARKHAM ([id number])[facility] ([facility])[address] [place] [address] OXYCODONE SCREEN Negative Normal [facility] Comment on above: Performed By: #### L [id number] ####Watch Assembler: JUDITH MARKHAM ([id number])[facility] ([facility])[address] [place] [address] PHENCYCLIDINE SCREEN Negative Normal [facility] Comment on above: Performed By: #### L [id number] ####Watch Assembler: JUDITH MARKHAM ([id number])[facility] ([facility])[address] [place] [address] ED Provider Noteon ED Provider Note Normal [facility] ETHANOLon 04-16-2024 ETHANOL IN SER/PLAS 331 mg/dL Critically high <10 [facility] Comment on above: Result Comment: ORDE R COMMENTS:PALLIATIVE CARE NURSE PRACTITIONER depression is seen >100 mg/dL.NOTE: This result is for medical treatment only. Analysis performed using non-forensic procedures. Performed By: #### L AB17, LAB99, LAB46 ####Watch Assembler: JUDITH MARKHAM ([phone])[facility] ([facility])[address] [place] [address] Ethanol (Bld) [Mass/Vol]Orde red By: Christina Duncan on 04-16-2024 Ethanol [Mass/Vol] 331 mg/dL Critically high NINF - 10 mg/dL [facility] Interpretation and review of laboratory results Abnormal [facility] PALLIATIVE CARE NURSE PRACTITIONER depression is se en >100 mg/dL. NOTE: This result is for medical treatment only. Analysis performed using non-forensic procedures. [facility] LACTIC ACID WITH REFLEXon Lactate [Moles/Vol] 2.2 mmol/L Normal 0.5-2.2 [facility] Comment on above: Performed By: #### L [id number] ####Watch Assembler: JUDITH MARKHAM ([id number])[facility])[address] [place] [address] Lactate [Moles/Vol] 4.0 mmol/L Critically high 0.5-2.2 [facility] Comment on above: Performed By: #### L [id number] ####Watch Assembler: JUDITH MARKHAM ([id number])[facility] ([facility])[address] [place] [address] LIPASEon 04-16-2024 Lipase [Catalytic activity/Vol] 135 U/L High <55 [facility] Comment on above: Performed By: #### L AB17, LAB99, LAB46 ####Watch Assembler: JUDITH MARKHAM ([id number])[facility])[address] [place] [address] Laboratory - Chemistry and C hemistry - challengeon 04-16-2024 Lactate [Moles/Vol] 2.2 mmol/L 0.5 - 2. 2 mmol/L [facility] Lactate [Moles/Vol] 4 mmol/L Critically high 0.5 - 2.2 mmol/L [facility] Lipase [Catalytic activity/Vol] 135 U/L High NINF - 55 U/L [facility] Laboratory - Drug toxicology on 04-16-2024 Amphetamines Screen method >1000 ng/mL Ql (U) Positive [facility] Barbiturates Screen method >200 ng/mL Ql (U) Negative [facility] Benzodiazepines Ql (U) Negative [facility] Methadone Screen Ql (U) Negative [facility] Opiates Screen Ql (U) Negative [facility] oxyCODONE Ql (U) Negative [facility] Phencyclidine Ql (U) Negative [facility] Laboratory - Microbiology an d Antimicrobial susceptibilityOrdered By: Pooja Huber on 04-16-2024 SARS-CoV-2 (COVID-19) Ag IA.rapid Ql (Resp) Positive Abnormal Negative [facility] Comment on above: This test detects zenaida th viable and non-viable virus. Positive results do not differentiate between SARS-CoV and SARS-CoV-2. If differentiation of specific SARS is needed, additional testing with a NAAT-based method is required. Method: Lateral flow immunoassay. Fact sheets for healthcare providers and patients can be found at the following sites: https://www.[place].gov/media/576707/download https://www.[place].gov/[employer]/216244/download Lipase [Catalytic activity/V ol]on 04-16-2024 Interpretation and review of laboratory results Abnormal [facility] No Panel Informationon 04-16 Interpretation and review of laboratory results Normal [facility] Interpretation and review of laboratory results Abnormal [facility] COCAINE METAB. SCREEN Negative [facility] FENTANYL SCREEN, UR QUAL Positive [facility] The expected value f or all of [...] is needed, request confirmation under separate order. [facility] SARS-COV-2 ANTIGENon 025 SARS-COV-2 ANTIGEN Normal [facility] Comment on above: Performed By: #### L [id number] ####Watch Assembler: JUDITH MARKHAM ([id number])[facility] ([place] [address] [place] SARS-CoV-2 (COVID-19) Ag IA. rapid Ql (Resp)Ordered By: Pooja Huber on 04-16-2024 Interpretation and review of laboratory results Abnormal [facility] CBC W Auto Differential pane l (Bld)on 04-06-2024 Basophils (Bld) [#/Vol] 0 10*3/uL 0.0 - 0.2 10*3/uL [facility] Basophils/100 WBC (Bld) 0.3 % 0.0 - 2.0 % [facility] Eosinophils (Bld) [#/Vol] 0 10*3/uL 0.0 - 0.5 10*3/uL [facility] Eosinophils/100 WBC (Bld) 0.9 % 0.0 - 6.0 % [facility] Erythrocyte distribution width (RBC) [Ratio] 15 % 11.5 - 15.0 % [facility] Hematocrit (Bld) [Volume fraction] 36 % Low 40.0 - 52.0 % [facility] Hemoglobin (Bld) [Mass/Vol] 11.6 g/dL Low 13.0 - 18.0 g/dL [facility] Immature granulocytes (Bld) [#/Vol] 0 10*3/uL NINF - 0.1 10*3/uL [facility] [employer] Immature granulocytes/100 WBC (Bld) 0 % 0.0 - 2.0 % [facility] Interpretation and review of laboratory results Abnormal [facility] Lymphocytes (Bld) [#/Vol] 1.4 10*3/uL 1.0 - 4.3 10*3/uL [facility] Lymphocytes/100 WBC (Bld) 45.1 % High 15.0 - 45.0 % [facility] MCH (RBC) [Entitic mass] 29.6 pg 26.0 - 34.0 pg [facility] MCHC (RBC) [Mass/Vol] 32.2 % 30.5 - 36.0 % [facility] MCV (RBC) [Entitic vol] 91.8 fL 77.0 - 99.0 fL [facility] Monocytes (Bld) [#/Vol] 0.2 10*3/uL 0.0 - 0.9 10*3/uL [facility] [place] Monocytes/100 WBC (Bld) 7.2 % 5.0 - 13.0 % [facility] [place] Neutrophils (Bld) [#/Vol] 1.5 10*3/uL Low 1.8 - 7.5 10*3/uL [facility] [place] Neutrophils/100 WBC (Bld) 46.5 % 38.0 - 82.0 % [facility] [place] Nucleated RBC/100 WBC (Bld) [Ratio] 0 % [facility] [place] Platelet mean volume (Bld) [Entitic vol] 10.6 fL 9.0 - 12.7 fL [facility] [place] Platelets (Bld) [#/Vol] 152 10*3/uL 140 - 440 10*3/uL [facility] [place] RBC (Bld) [#/Vol] 3.92 10*6/uL Low 4.40 - 5.9 0 10*6/uL [facility] [place] WBC (Bld) [#/Vol] 3.2 10*3/uL Low 3.6 - 10.7 10*3/uL [facility] CBC WITH AUTO DIFFERENTIALon 04-06-2024 Basophils (Bld) [#/Vol] 0.0 10*3/uL Normal 0.0-0.2 [facility] Comment on above: Performed By: #### L [id number] ####Watch Assembler: SHENA GUERIN ([phone])[facility] ([facility])[address] [place] [address] Basophils/100 WBC (Bld) 0.3 % Normal 0.0-2.0 [facility] Comment on above: Performed By: #### L [id number] ####Watch Assembler: SHENA GUERIN ([id number])[facility] ([facility])[address] Eosinophils (Bld) [#/Vol] 0.0 10*3/uL Normal 0.0-0.5 [facility] Comment on above: Performed By: #### L [id number] ####Watch Assembler: SHENA GUERIN ([id number])[facility] ([facility])[address] Eosinophils/100 WBC (Bld) 0.9 % Normal 0.0-6.0 [facility] Comment on above: Performed By: #### L [id number] ####Watch Assembler: SHENA GUERIN ([id number])[facility] ([facility])[address] [place] [address] Erythrocyte distribution width (RBC) [Ratio] 15.0 % Normal 11.5-15.0 [facility] Comment on above: Performed By: #### L [id number] ####Watch Assembler: SHENA GUERIN ([phone])[facility] ([facility])[address] Hematocrit (Bld) [Volume fraction] 36.0 % Low 40.0-52.0 [facility] Comment on above: Performed By: #### L [id number] ####Watch Assembler: SHENA CHAMPAGNEBETTY ([phone])[facility] ([facility])[address] [place] [address] Hemoglobin (Bld) [Mass/Vol] 11.6 g/dL Low 13.0-18.0 [facility] Comment on above: Performed By: #### L [id number] ####Watch Assembler: SHENA GUERIN ([phone])[facility] ([facility])[address] [place] [address] IMMATURE GRANS % 0.0 % Normal 0.0-2.0 [facility] Comment on above: Performed By: #### L [id number] ####Watch Assembler: SHENA GUERIN ([phone])[facility] ([facility])[address] [place] [address] IMMATURE GRANS ABSOLUTE 0.0 10*3/uL Normal <0.1 [facility] Comment on above: Performed By: #### L [id number] ####Watch Assembler: SHENA GUERIN ([id number])[facility] ([facility])[address] [place] [address] Lymphocytes (Bld) [#/Vol] 1.4 10*3/uL Normal 1.0-4.3 [facility] Comment on above: Performed By: #### L [id number] ####Watch Assembler: SHENA CHAMPAGNEBETTY ([id number])[facility] [place] ([facility])[address] Lymphocytes/100 WBC (Bld) 45.1 % High 15.0-45.0 [facility] Comment on above: Performed By: #### L [id number] ####Watch Assembler: SHENA CHAMPAGNEBETTY ([id number])[facility] AVONKyler ENGELNEW MEXICO BEH[facility]IOR[facility] HE[facility] INSTITUTE AT L[facility] VEGASN ([facility])[address] MCH (RBC) [Entitic mass] 29.6 pg Normal 26.0-34.0 [facility] Comment on above: Performed By: #### L [id number] ####Watch Assembler: SHENA DEL ROSARIOBeckieBETTY ([phone])[facility] AVONKyler ENGELNEW MEXICO BEHAVIOR[facility] HEALTH INSTITUTE AT LAS VEGASTu ([facility])[address] MCHC 32.2 % Normal 30.5-36.0 [facility] Comment on above: Performed By: #### L [id number] ####Watch Assembler: SHENA CHAMPAGNEBETTY ([id number])[facility] AVONKyler ENGELNEW MEXICO BEHAVIOR[facility] HEALTH INSTITUTE AT LAS VEGASTu ([facility])[address] MCV (RBC) [Entitic vol] 91.8 fL Normal 77.0-99.0 [facility] Comment on above: Performed By: #### L [id number] ####Watch Assembler: SHENA GUERIN ([phone])[facility] AVONKyler ENGELNEW MEXICO BE[facility] INSTITUTE AT L[facility] VEGASTu ([facility])[address] Monocytes (Bld) [#/Vol] 0.2 10*3/uL Normal 0.0-0.9 [facility] Comment on above: Performed By: #### L [id number] ####Watch Assembler: SHENA GUERIN ([id number])[facility] AVONKyler ENGELNEW MEXICO BE[facility] INSTITUTE AT L[facility] VEGASN ([facility])[address] Monocytes/100 WBC (Bld) 7.2 % Normal 5.0-13.0 [facility] Comment on above: Performed By: #### L [id number] ####Watch Assembler: SHENAPILAR GUERIN ([id number])[facility] ([facility])[address] NEUTROPHILS ABSOLUTE 1.5 10*3/uL Low 1.8-7.5 [facility] Comment on above: Performed By: #### L [id number] ####Watch Assembler: SHENA DEL ROSARIOHAMIDA ([id number])[facility] ([facility])[address] Neutrophils/100 WBC (Bld) 46.5 % Normal 38.0-82.0 [facility] Comment on above: Performed By: #### L [id number] ####Watch Assembler: SHENA GUERIN ([phone])[facility] ([facility])[address] NRBC 0.0 /100 WBCs Normal 0.0-2.0 [facility] Comment on above: Performed By: #### L [id number] ####Watch Assembler: SHENA APOORVA ([phone])[facility] ([facility])[address] Platelet mean volume (Bld) [Entitic vol] 10.6 fL Normal 9.0-12.7 [facility] Comment on above: Performed By: #### L [id number] ####Watch Assembler: SHENA CHAMPAGNEBETTY ([phone])[facility] ([facility])[address] Platelets (Bld) [#/Vol] 152 10*3/uL Normal 140-440 [facility] Comment on above: Performed By: #### L [id number] ####Watch Assembler: SHENA APOORVA ([id number])[facility] ([facility])[address] RBC (Bld) [#/Vol] 3.92 10*6/uL Low 4.40-5.90 [facility] Comment on above: Performed By: #### L [id number] ####Watch Assembler: SHENA GUERIN ([id number])[facility] [place] ([facility])[address] WBC (Bld) [#/Vol] 3.2 10*3/uL Low 3.6-10.7 [facility] Comment on above: Performed By: #### L [id number] ####Watch Assembler: SHENA GUERIN ([phone])[facility] ([facility])[address] COMPREHENSIVE METABOLIC PANE Rylan 04-06-2024 Albumin [Mass/Vol] 3.0 g/dL Low 3.5-5.0 [facility] Comment on above: Performed By: #### L [id number] ####Watch Assembler: SHENA GUERIN ([id number])[facility] ([facility])[address] ALP [Catalytic activity/Vol] 127 U/L Normal 40-150 [facility] Comment on above: Performed By: #### L [id number] ####Watch Assembler: SHENA GUERIN ([id number])[facility] ([facility])[address] ALT [Catalytic activity/Vol] 72 U/L High <40 [facility] Comment on above: Performed By: #### L [id number] ####Watch Assembler: SHENA GUERIN ([id number])[facility] ([facility])[address] Anion gap [Moles/Vol] 6 mmol/L Normal 3-13 [facility] Comment on above: Performed By: #### L [id number] ####Watch Assembler: SHENA GUERIN ([phone])[facility] ([facility])[address] AST [Catalytic activity/Vol] 102 U/L High <34 [facility] Comment on above: Performed By: #### L [id number] ####Watch Assembler: SHENA GUERIN ([phone])[facility] [place] ([facility])[address] Bilirubin [Mass/Vol] 1.5 mg/dL High <1.2 [facility] Comment on above: Performed By: #### L [id number] ####Watch Assembler: SHENA GUERIN ([phone])[facility] ([facility])[address] Calcium [Mass/Vol] 8.2 mg/dL Low 8.4-10.2 [facility] Comment on above: Performed By: #### L [id number] ####Watch Assembler: SHENA GUERIN ([id number])[facility] [place] ([facility])[address] Chloride [Moles/Vol] 111 mmol/L High 98-107 [facility] Comment on above: Performed By: #### L [id number] ####Watch Assembler: SHENA GUERIN ([phone])[facility] ([facility])[address] CO2 [Moles/Vol] 21 mmol/L Low 22-29 [facility] Comment on above: Performed By: #### L [id number] ####Watch Assembler: SHENA GUERIN ([id number])[facility] ([facility])[address] Creatinine [Mass/Vol] 0.57 mg/dL Low 0.72-1.25 [facility] Comment on above: Performed By: #### L [id number] ####Watch Assembler: SHENA GUERIN ([id number])[facility] ([facility])[address] GLOMERULAR FILTRATION RATE ML/MIN/1.73 SQ M.PREDICTED >90.0 Normal >60.0 [facility] Comment on above: Result Comment: Calc ulation based on the Chronic Kidney Disease Epidemiology Collaboration (CKD-EPI) equation refit without adjustment for race Performed By: #### L [id number] ####Watch Assembler: SHENA GUERIN ([phone])[facility] AVONKyler NEUMANNTu ([facility])[address] Glucose [Mass/Vol] 102 mg/dL High 74-100 [facility] Comment on above: Performed By: #### L [id number] ####Watch Assembler: SHENA GUERIN ([id number])[facility] AVONKyler ENGELBANNER ([facility])[address] Potassium [Moles/Vol] 4.0 mmol/L Normal 3.5-5.1 [facility] Comment on above: Result Comment: [facility] potassium values may be up to 0.5 mmol/L lower than serum values. Performed By: #### L [id number] ####Watch Assembler: SHENA GUERIN ([id number])[facility] AVONKyler NEUMANN ([facility])[address] Protein [Mass/Vol] 5.7 g/dL Low 6.4-8.3 [facility] Comment on above: Performed By: #### L [id number] ####Watch Assembler: SHENA GUERIN ([phone])[facility] AVONKyler [place] ([facility])[address] Sodium [Moles/Vol] 138 mmol/L Normal 136-145 [facility] Comment on above: Performed By: #### L [id number] ####Watch Assembler: SHENA GUERIN ([id number])[facility] ([facility])[address] Urea nitrogen [Mass/Vol] mg/dL Low 8-21 [facility] Comment on above: Performed By: #### L [id number] ####Watch Assembler: SHENA GUERIN ([phone])[facility] ([facility])[address] Comprehensive metabolic 1998 panelon 04-06-2024 Albumin [Mass/Vol] 3 g/dL Low 3.5 - 5.0 g/dL [facility] ALP [Catalytic activity/Vol] 127 U/L 40 - 150 U/L [facility] ALT [Catalytic activity/Vol] 72 U/L High NINF - 40 U/L [facility] Anion gap [Moles/Vol] 6 mmol/L 3 - 13 mmol/L [facility] [place] AST [Catalytic activity/Vol] 102 U/L High NINF - 34 U/L [facility] [place] Bilirubin [Mass/Vol] 1.5 mg/dL High NINF - 1.2 mg/dL [facility] [place] Calcium [Mass/Vol] 8.2 mg/dL Low 8.4 - 10. 2 mg/dL [facility] [place] Chloride [Moles/Vol] 111 mmol/L High 98 - 10 7 mmol/L [facility] [place] CO2 [Moles/Vol] 21 mmol/L Low 22 - 29 mmol/L [facility] Creatinine [Mass/Vol] 0.57 mg/dL Low 0.72 - 1.25 mg/dL [facility] GFR/1.73 sq M.predicted (S/P/Bld) [Vol rate/Area] - PINF [facility] Comment on above: Calculation based on the Chronic Kidney Disease Epidemiology Collaboration (CKD-EPI) equation refit without adjustment for race Glucose [Mass/Vol] 102 mg/dL High 74 - 100 mg/dL [facility] Interpretation and review of laboratory results Abnormal [facility] Potassium [Moles/Vol] 4 mmol/L 3.5 - 5.1 mmol/L [facility] Comment on above: Plasma potassium víctor ues may be up to 0.5 mmol/L lower than serum values. Protein [Mass/Vol] 5.7 g/dL Low 6.4 - 8.3 g/dL [facility] Sodium [Moles/Vol] 138 mmol/L 136 - 145 mmol/L [facility] Urea nitrogen [Mass/Vol] mg/dL Low 8 - 21 mg/dL [facility] Progress Noteon 04-06-2024 Progress Note Normal [facility] Progress Note Nutrition rescreen complete. Pt assigned a level one for nutrition care. Normal [facility] CBC W Auto Differential pane l (Bld)Ordered By: Wanda Frias on 04-05-2024 Basophils (Bld) [#/Vol] 0 10*3/uL 0.0 - 0.2 10*3/uL [facility] Basophils/100 WBC (Bld) 0.6 % 0.0 - 2.0 % [facility] Eosinophils (Bld) [#/Vol] 0 10*3/uL 0.0 - 0.5 10*3/uL [facility] Eosinophils/100 WBC (Bld) 0.6 % 0.0 - 6.0 % [facility] Erythrocyte distribution width (RBC) [Ratio] 15.1 % High 11.5 - 15.0 % [facility] Hematocrit (Bld) [Volume fraction] 40.1 % 40.0 - 52.0 % [facility] Hemoglobin (Bld) [Mass/Vol] 13 g/dL 13.0 - 18.0 g/dL [facility] Immature granulocytes (Bld) [#/Vol] 0 10*3/uL NINF - 0.1 10*3/uL [facility] Immature granulocytes/100 WBC (Bld) 0 % 0.0 - 2.0 % [facility] Interpretation and review of laboratory results Abnormal [facility] Lymphocytes (Bld) [#/Vol] 1.6 10*3/uL 1.0 - 4.3 10*3/uL [facility] Lymphocytes/100 WBC (Bld) 46.4 % High 15.0 - 45.0 % [facility] MCH (RBC) [Entitic mass] 29.3 pg 26.0 - 34.0 pg [facility] MCHC (RBC) [Mass/Vol] 32.4 % 30.5 - 36.0 % [facility] [place] MCV (RBC) [Entitic vol] 90.3 fL 77.0 - 99.0 fL [facility] [place] Monocytes (Bld) [#/Vol] 0.3 10*3/uL 0.0 - 0.9 10*3/uL [facility] [place] Monocytes/100 WBC (Bld) 9.2 % 5.0 - 13.0 % [facility] [place] Neutrophils (Bld) [#/Vol] 1.5 10*3/uL Low 1.8 - 7.5 10*3/uL [facility] Neutrophils/100 WBC (Bld) 43.2 % 38.0 - 82.0 % [facility] Nucleated RBC/100 WBC (Bld) [Ratio] 0 % [facility] [place] Platelet mean volume (Bld) [Entitic vol] 10 fL 9.0 - 12.7 fL [facility] [place] Platelets (Bld) [#/Vol] 153 10*3/uL 140 - 440 10*3/uL [facility] RBC (Bld) [#/Vol] 4.44 10*6/uL 4.40 - 5.9 0 10*6/uL [facility] WBC (Bld) [#/Vol] 3.5 10*3/uL Low 3.6 - 10.7 10*3/uL [facility] CBC WITH AUTO DIFFERENTIALon 04-05-2024 Basophils (Bld) [#/Vol] 0.0 10*3/uL Normal 0.0-0.2 [facility] Comment on above: Performed By: #### L [id number] ####Watch Assembler: SHENA GUERIN ([id number])[facility] ([facility])[address] Basophils/100 WBC (Bld) 0.6 % Normal 0.0-2.0 [facility] Comment on above: Performed By: #### L [id number] ####Watch Assembler: SHENA GUERIN ([phone])[facility] ([facility])[address] [place] [address] [place] Eosinophils (Bld) [#/Vol] 0.0 10*3/uL Normal 0.0-0.5 [facility] Comment on above: Performed By: #### L [id number] ####Watch Assembler: SHENA GUERIN ([id number])[facility] ([facility])[address] [place] [address] [place] Eosinophils/100 WBC (Bld) 0.6 % Normal 0.0-6.0 [facility] Comment on above: Performed By: #### L [id number] ####Watch Assembler: SHENA GUERIN ([id number])[facility] ([facility])[address] [place] [address] [place] Erythrocyte distribution width (RBC) [Ratio] 15.1 % High 11.5-15.0 [facility] Comment on above: Performed By: #### L [id number] ####Watch Assembler: SHENA GUERIN ([phone])[facility] ([facility])[address] Hematocrit (Bld) [Volume fraction] 40.1 % Normal 40.0-52.0 [facility] Comment on above: Performed By: #### L [id number] ####Watch Assembler: SHENA CHAMPAGNEBETTY ([id number])[facility] ([facility])[address] Hemoglobin (Bld) [Mass/Vol] 13.0 g/dL Normal 13.0-18.0 [facility] Comment on above: Performed By: #### L [id number] ####Watch Assembler: SHENA GUERIN ([id number])[facility] ([facility])[address] IMMATURE GRANS % 0.0 % Normal 0.0-2.0 [facility] Comment on above: Performed By: #### L [id number] ####Watch Assembler: SHE[facility] GUERIN ([id number])[facility] ([facility])[address] IMMATURE GRANS ABSOLUTE 0.0 10*3/uL Normal <0.1 [facility] Comment on above: Performed By: #### L [id number] ####Watch Assembler: SHENA GUERIN ([id number])[facility] ([facility])[address] Lymphocytes (Bld) [#/Vol] 1.6 10*3/uL Normal 1.0-4.3 [facility] Comment on above: Performed By: #### L [id number] ####Watch Assembler: SHENA GUERIN ([id number])[facility]ASN ([facility])[address] [place] [address] [place] Lymphocytes/100 WBC (Bld) 46.4 % High 15.0-45.0 [facility] Comment on above: Performed By: #### L [id number] ####Watch Assembler: SHENA GUERIN ([phone])[facility] ([facility])[address] MCH (RBC) [Entitic mass] 29.3 pg Normal 26.0-34.0 [facility] Comment on above: Performed By: #### L [id number] ####Watch Assembler: SHENA CHAMPAGNEBETTY ([id number])[facility] [place] ([facility])[address] MCHC 32.4 % Normal 30.5-36.0 [facility] Comment on above: Performed By: #### L [id number] ####Watch Assembler: SHENA CHAMPAGNEBETTY ([id number])[facility] [place] ([facility])[address] MCV (RBC) [Entitic vol] 90.3 fL Normal 77.0-99.0 [facility] Comment on above: Performed By: #### L [id number] ####Watch Assembler: SHENA GUERIN ([id number])[facility] [place] ([facility])[address] Monocytes (Bld) [#/Vol] 0.3 10*3/uL Normal 0.0-0.9 [facility] Comment on above: Performed By: #### L [id number] ####Watch Assembler: SHENA GUERIN ([id number])[facility] ([facility])[address] Monocytes/100 WBC (Bld) 9.2 % Normal 5.0-13.0 [facility] Comment on above: Performed By: #### L [id number] ####Watch Assembler: SHENA GUERIN ([id number])[facility] [place] ([facility])[address] NEUTROPHILS ABSOLUTE 1.5 10*3/uL Low 1.8-7.5 [facility] Comment on above: Performed By: #### L [id number] ####Watch Assembler: SHENA GUERIN ([id number])[facility] ([facility])[address] Neutrophils/100 WBC (Bld) 43.2 % Normal 38.0-82.0 [facility] Comment on above: Performed By: #### L [id number] ####Watch Assembler: SHENA GUERIN ([id number])[facility] [place] ([facility])[address] NRBC 0.0 /100 WBCs Normal 0.0-2.0 [facility] Comment on above: Performed By: #### L [id number] ####Watch Assembler: SHENA GUERIN ([phone])[facility] BARBNEW MEXICO [facility] AT L[facility] VEGASN ([facility])[address] Platelet mean volume (Bld) [Entitic vol] 10.0 fL Normal 9.0-12.7 [facility] Comment on above: Performed By: #### L [id number] ####Watch Assembler: SHENA GUERIN ([id number])[facility] ([facility])[address] Platelets (Bld) [#/Vol] 153 10*3/uL Normal 140-440 [facility] Comment on above: Performed By: #### L [id number] ####Watch Assembler: SHENA GUERIN ([phone])[facility] [place] ([facility])[address] RBC (Bld) [#/Vol] 4.44 10*6/uL Normal 4.40-5.90 [facility] Comment on above: Performed By: #### L [id number] ####Watch Assembler: SHENA GUERIN ([phone])[facility] [place] ([facility])[address] [place] [address] [place] WBC (Bld) [#/Vol] 3.5 10*3/uL Low 3.6-10.7 [facility] Comment on above: Performed By: #### L [id number] ####Watch Assembler: SHENA GUERIN ([phone])[facility] ([facility])[address] COMPREHENSIVE METABOLIC PANE Rylan 04-05-2024 Albumin [Mass/Vol] 3.5 g/dL Normal 3.5-5.0 [facility] Comment on above: Performed By: #### L [id number] ####Watch Assembler: SHENA GUERIN ([phone])[facility] [place] ([facility])[address] ALP [Catalytic activity/Vol] 140 U/L Normal 40-150 [facility] Comment on above: Performed By: #### L [id number] ####Watch Assembler: SHENA GUERIN ([id number])[facility] [place] ([facility])[address] ALT [Catalytic activity/Vol] 104 U/L High <40 [facility] Comment on above: Performed By: #### L [id number] ####Watch Assembler: SHENA GUERIN ([id number])[facility] [place] ([facility])[address] Anion gap [Moles/Vol] 9 mmol/L Normal 3-13 [facility] Comment on above: Performed By: #### L [id number] ####Watch Assembler: SHENA GUERIN ([id number])[facility] [place] ([facility])[address] AST [Catalytic activity/Vol] 149 U/L High <34 [facility] Comment on above: Performed By: #### L AB17 ####Watch Assembler: SHENA GUERIN ([id number])[facility] [place] ([facility])[address] [place] [address] [place] Bilirubin [Mass/Vol] 1.6 mg/dL High <1.2 [facility] Comment on above: Performed By: #### L AB17 ####Watch Assembler: SHENA GUERIN ([id number])[facility] [place] ([facility])[address] Calcium [Mass/Vol] 8.5 mg/dL Normal 8.4-10.2 [facility] Comment on above: Performed By: #### L AB17 ####Watch Assembler: SHENA GUERIN ([id number])[facility] (SB[facility]AB)[address] Chloride [Moles/Vol] 104 mmol/L Normal 98-107 [facility] Comment on above: Performed By: #### L AB17 ####Watch Assembler: SHENA GUERIN ([id number])[facility] [place] ([facility])[address] CO2 [Moles/Vol] 21 mmol/L Low 22-29 [facility] Comment on above: Performed By: #### L AB17 ####Watch Assembler: SHENA GUERIN ([id number])[facility] AVONKyler [place] (SBHLAB)[address] Creatinine [Mass/Vol] 0.66 mg/dL Low 0.72-1.25 [facility] Comment on above: Performed By: #### L [id number] ####Watch Assembler: SHENA GUERIN ([id number])[facility]BNEW [facility]EX[facility] (SBHLAB)[address] GLOMERULAR FILTRATION RATE ML/MIN/1.73 SQ M.PREDICTED >90.0 Normal >60.0 [facility] Comment on above: Result Comment: Calc ulation based on the Chronic Kidney Disease Epidemiology Collaboration (CKD-EPI) equation refit without adjustment for race Performed By: #### L [id number] ####Watch Assembler: SHENA GUERIN ([id number])[facility] AVONKyler [place] (SBHLAB)[address] [place] [address] [place] Glucose [Mass/Vol] 102 mg/dL High 74-100 [facility] Comment on above: Performed By: #### L AB17 ####Watch Assembler: SHENA GUERIN ([id number])[facility] [place] (SBHLAB)[address] [place] [address] [place] Potassium [Moles/Vol] 4.1 mmol/L Normal 3.5-5.1 [facility] Comment on above: Result Comment: [facility] potassium values may be up to 0.5 mmol/L lower than serum values. Performed By: #### L AB17 ####Watch Assembler: SHENA GUERIN ([id number])[facility] AVONKyler ENGELNEW MEXICO BEH[facility] INSTITUTE AT L[facility] VEGASN (SBHLAB)[address] Protein [Mass/Vol] 6.4 g/dL Normal 6.4-8.3 [facility] Comment on above: Performed By: #### L AB17 ####Watch Assembler: SHENA GUERIN ([phone])[facility] (SBHLAB)[address] Sodium [Moles/Vol] 134 mmol/L Low 136-145 [facility] Comment on above: Performed By: #### L AB17 ####Watch Assembler: SHENA GUERIN ([id number])[facility] (SBHLAB)[address] Urea nitrogen [Mass/Vol] 3 mg/dL Low 8-21 [facility] Comment on above: Performed By: #### L [id number] ####Watch Assembler: SHENA GUERIN ([id number])[facility] ([facility] Comprehensive metabolic 1998 panelon 04-05-2024 Albumin [Mass/Vol] 3.5 g/dL 3.5 - 5.0 g/dL [facility] ALP [Catalytic activity/Vol] 140 U/L 40 - 150 U/L [facility] ALT [Catalytic activity/Vol] 104 U/L High NINF - 40 U/L [facility] Anion gap [Moles/Vol] 9 mmol/L 3 - 13 mmol/L [facility] AST [Catalytic activity/Vol] 149 U/L High NINF - 34 U/L [facility] Bilirubin [Mass/Vol] 1.6 mg/dL High NINF - 1.2 mg/dL [facility] Calcium [Mass/Vol] 8.5 mg/dL 8.4 - 10. 2 mg/dL [facility] Chloride [Moles/Vol] 104 mmol/L 98 - 10 7 mmol/L [facility] CO2 [Moles/Vol] 21 mmol/L Low 22 - 29 mmol/L [facility] Creatinine [Mass/Vol] 0.66 mg/dL Low 0.72 - 1.25 mg/dL [facility] GFR/1.73 sq M.predicted (S/P/Bld) [Vol rate/Area] - PINF [facility] Comment on above: Calculation based on the Chronic Kidney Disease Epidemiology Collaboration (CKD-EPI) equation refit without adjustment for race Glucose [Mass/Vol] 102 mg/dL High 74 - 100 mg/dL [facility] Interpretation and review of laboratory results Abnormal [facility] Potassium [Moles/Vol] 4.1 mmol/L 3.5 - 5.1 mmol/L [facility] Comment on above: Plasma potassium víctor ues may be up to 0.5 mmol/L lower than serum values. Protein [Mass/Vol] 6.4 g/dL 6.4 - 8.3 g/dL [facility] Sodium [Moles/Vol] 134 mmol/L Low 136 - 145 mmol/L [facility] Urea nitrogen [Mass/Vol] 3 mg/dL Low 8 - 21 mg/dL [facility] Progress Noteon 04-05-2024 Progress Note Normal [facility] Progress Note Normal [facility] CBC W Auto Differential pane l (Bld)on 04-04-2024 Basophils (Bld) [#/Vol] 0.1 10*3/uL 0.0 - 0.2 10*3/uL [facility] Basophils/100 WBC (Bld) 0.8 % 0.0 - 2.0 % [facility] Eosinophils (Bld) [#/Vol] 0 10*3/uL 0.0 - 0.5 10*3/uL [facility] Eosinophils/100 WBC (Bld) 0.5 % 0.0 - 6.0 % [facility] Erythrocyte distribution width (RBC) [Ratio] 15.3 % High 11.5 - 15.0 % [facility] Hematocrit (Bld) [Volume fraction] 44.7 % 40.0 - 52.0 % [facility] Hemoglobin (Bld) [Mass/Vol] 15 g/dL 13.0 - 18.0 g/dL [facility] Immature granulocytes (Bld) [#/Vol] 0 10*3/uL NINF - 0.1 10*3/uL [facility] [employer] Immature granulocytes/100 WBC (Bld) 0.2 % 0.0 - 2.0 % [facility] Interpretation and review of laboratory results Abnormal [facility] Lymphocytes (Bld) [#/Vol] 3.3 10*3/uL 1.0 - 4.3 10*3/uL [facility] Lymphocytes/100 WBC (Bld) 56.1 % High 15.0 - 45.0 % [facility] MCH (RBC) [Entitic mass] 29.4 pg 26.0 - 34.0 pg [facility] MCHC (RBC) [Mass/Vol] 33.6 % 30.5 - 36.0 % [facility] MCV (RBC) [Entitic vol] 87.5 fL 77.0 - 99.0 fL [facility] Monocytes (Bld) [#/Vol] 0.5 10*3/uL 0.0 - 0.9 10*3/uL [facility] Monocytes/100 WBC (Bld) 8.2 % 5.0 - 13.0 % [facility] Neutrophils (Bld) [#/Vol] 2 10*3/uL 1.8 - 7.5 10*3/uL [facility] Neutrophils/100 WBC (Bld) 34.2 % Low 38.0 - 82.0 % [facility] Nucleated RBC/100 WBC (Bld) [Ratio] 0 % [facility] Platelet mean volume (Bld) [Entitic vol] 9.8 fL 9.0 - 12.7 fL [facility] Platelets (Bld) [#/Vol] 260 10*3/uL 140 - 440 10*3/uL [facility] RBC (Bld) [#/Vol] 5.11 10*6/uL 4.40 - 5.9 0 10*6/uL [facility] WBC (Bld) [#/Vol] 5.9 10*3/uL 3.6 - 10.7 10*3/uL [facility] CBC WITH AUTO DIFFERENTIALon 04-04-2024 Basophils (Bld) [#/Vol] 0.1 10*3/uL Normal 0.0-0.2 [facility] Comment on above: Performed By: #### L [id number] ####Watch Assembler: SHENA GUERIN ([id number])[facility] [place] (SBHLAB)[address] Basophils/100 WBC (Bld) 0.8 % Normal 0.0-2.0 [facility] Comment on above: Performed By: #### L [id number] ####Watch Assembler: SHENA CHAMPAGNEBETTY ([id number])[facility] [place] (SBHLAB)[address] Eosinophils (Bld) [#/Vol] 0.0 10*3/uL Normal 0.0-0.5 [facility] Comment on above: Performed By: #### L [id number] ####Watch Assembler: SHENA CHAMPAGNEBETTY ([id number])[facility] [place] (SBHLAB)[address] Eosinophils/100 WBC (Bld) 0.5 % Normal 0.0-6.0 [facility] Comment on above: Performed By: #### L [id number] ####Watch Assembler: SHENA CHAMPAGNEBETTY ([id number])[facility] [place] (SBHLAB)[address] Erythrocyte distribution width (RBC) [Ratio] 15.3 % High 11.5-15.0 [facility] Comment on above: Performed By: #### L [id number] ####Watch Assembler: SHENA GUERIN ([id number])[facility] [place] (SBHLAB)[address] [place] [address] Hematocrit (Bld) [Volume fraction] 44.7 % Normal 40.0-52.0 [facility] Comment on above: Performed By: #### L [id number] ####Watch Assembler: SHENA GUERIN ([id number])[facility] [place] (SBHLAB)[address] Hemoglobin (Bld) [Mass/Vol] 15.0 g/dL Normal 13.0-18.0 [facility] Comment on above: Performed By: #### L [id number] ####Watch Assembler: SHENA GUERIN ([id number])[facility] [place] (SBHLAB)[address] IMMATURE GRANS % 0.2 % Normal 0.0-2.0 [facility] Comment on above: Performed By: #### L [id number] ####Watch Assembler: SHENA GUERIN ([id number])[facility] BARBNEW MEXICO [facility] L[facility] VEGASN (SBHLAB)[address] IMMATURE GRANS ABSOLUTE 0.0 10*3/uL Normal <0.1 [facility] Comment on above: Performed By: #### L [id number] ####Watch Assembler: SHENA GUERIN ([id number])[facility] BARBNEW MEXICO [facility] L[facility] VE[facility]ASN (SBHLAB)[address] Lymphocytes (Bld) [#/Vol] 3.3 10*3/uL Normal 1.0-4.3 [facility] Comment on above: Performed By: #### L [id number] ####Watch Assembler: SHENA GUERIN ([id number])[facility]BNEW MEXICO [facility]N (SBHLAB)[address] Lymphocytes/100 WBC (Bld) 56.1 % High 15.0-45.0 [facility] Comment on above: Performed By: #### L [id number] ####Watch Assembler: SHENA GUERIN ([id number])[facility] BARBCAPRICEN (SBHLAB)[address] MCH (RBC) [Entitic mass] 29.4 pg Normal 26.0-34.0 [facility] Comment on above: Performed By: #### L [id number] ####Watch Assembler: SHENA GUERIN ([id number])[facility] BARBCAPRICEN (SBHLAB)[address] MCHC 33.6 % Normal 30.5-36.0 [facility] Comment on above: Performed By: #### L [id number] ####Watch Assembler: SHENA GUERIN ([id number])[facility] [place] (SBHLAB)[address] MCV (RBC) [Entitic vol] 87.5 fL Normal 77.0-99.0 [facility] Comment on above: Performed By: #### L [id number] ####Watch Assembler: SHENA GUERIN ([id number])[facility] [place] (SBHLAB)[address] Monocytes (Bld) [#/Vol] 0.5 10*3/uL Normal 0.0-0.9 [facility] Comment on above: Performed By: #### L [id number] ####Watch Assembler: SHENA GUERIN ([id number])[facility] [place] (SBHLAB)[address] Monocytes/100 WBC (Bld) 8.2 % Normal 5.0-13.0 [facility] Comment on above: Performed By: #### L [id number] ####Watch Assembler: SHENA GUERIN ([id number])[facility] [place] (SBHLAB)[address] NEUTROPHILS ABSOLUTE 2.0 10*3/uL Normal 1.8-7.5 [facility] Comment on above: Performed By: #### L [id number] ####Watch Assembler: SHENA GUERIN ([id number])[facility] [place] (SBHLAB)[address] Neutrophils/100 WBC (Bld) 34.2 % Low 38.0-82.0 [facility] Comment on above: Performed By: #### L [id number] ####Watch Assembler: SHENA GUERIN ([id number])[facility] [place] (SBHLAB)[address] [place] [address] [place] NRBC 0.0 /100 WBCs Normal 0.0-2.0 [facility] Comment on above: Performed By: #### L [id number] ####Watch Assembler: SHENA GUERIN ([id number])[facility] [place] (SBHLAB)[address] Platelet mean volume (Bld) [Entitic vol] 9.8 fL Normal 9.0-12.7 [facility] Comment on above: Performed By: #### L [id number] ####Watch Assembler: SHENA GUERIN ([id number])[facility] [place] (SBHLAB)[address] Platelets (Bld) [#/Vol] 260 10*3/uL Normal 140-440 [facility] Comment on above: Performed By: #### L [id number] ####Watch Assembler: SHENA GUERIN ([id number])[facility] [place] (SBHLAB)[address] RBC (Bld) [#/Vol] 5.11 10*6/uL Normal 4.40-5.90 [facility] Comment on above: Performed By: #### L [id number] ####Watch Assembler: SHENA GUERIN ([id number])[facility] [place] (SBHLAB)[address] WBC (Bld) [#/Vol] 5.9 10*3/uL Normal 3.6-10.7 [facility] Comment on above: Performed By: #### L [id number] ####Watch Assembler: SHENA GUERIN ([id number])[facility] BARBCAPRICEN (SBHLAB)[address] COMPLETE URINALYSISon 2024 BILIRUBIN, TOTAL PRESENCE IN URINE Negative Normal Negative [facility] Comment on above: Performed By: #### L [id number] ####Watch Assembler: SHENA GUERIN ([id number])[facility] [place] (SBHLAB)[address] Clarity (U) Clear Normal Clear [facility] Comment on above: Performed By: #### L [id number] ####Watch Assembler: SHENA GUERIN ([id number])[facility] [place] (SBHLAB)[address] Color (U) Light Yellow Normal Lt. Yellow [facility] Comment on above: Performed By: #### L [id number] ####Watch Assembler: SHENA GUERIN ([id number])[facility] ([facility])[address] GLUCOSE (MG/DL) IN URINE Normal Normal Normal (<70) [facility] Comment on above: Performed By: #### L [id number] ####Watch Assembler: SHENA GUERIN ([id number])[facility])[address] HEMOGLOBIN PRESENCE IN URINE Negative Normal Negative [facility] Comment on above: Performed By: #### L [id number] ####Watch Assembler: SHENA GUERIN ([id number])[facility] ([facility])[address] [place] [address] Ketones Ql (U) Negative Normal Negative [facility] Comment on above: Performed By: #### L [id number] ####Watch Assembler: SHENA GUERIN ([id number])[facility] ([facility])[address] [place] [address] LEUKOCYTE ESTERASE PRESENCE IN URINE BY TEST STRIP Negative Normal Negative [facility] Comment on above: Performed By: #### L [id number] ####Watch Assembler: SHENA GUERIN ([id number])[facility])[address] [place] [address] NITRITE PRESENCE IN URINE Negative Normal Negative [facility] Comment on above: Performed By: #### L [id number] ####Watch Assembler: SHENA GUERIN ([id number])[facility])[address] [place] [address] pH (U) 6.0 [pH] Normal 5.0-8.0 [facility] Comment on above: Performed By: #### L [id number] ####Watch Assembler: SHENA GUERIN ([id number])[facility]BNEW MEX[facility] (SBHLAB)[address] Protein (U) [Mass/Vol] Negative Normal Negative [facility] Comment on above: Performed By: #### L [id number] ####Watch Assembler: SHENA CHAMPAGNEBETTY ([id number])[facility] AVONKyler ENGELNEW MEXICO BE[facility]IORAL [facility] INSTITUTE AT L[facility] VEGASN (SBHLAB)[address] Specific gravity (U) [Rel density] 1.008 Normal 1.005-1.030 [facility] Comment on above: Performed By: #### L [id number] ####Watch Assembler: SHENA GUERIN ([id number])[facility] (SBHLAB)[address] UROBILINOGEN (MG/DL) IN URINE Normal Normal Normal (0-1) [facility] Comment on above: Performed By: #### L [id number] ####Watch Assembler: SHENA GUERIN ([id number])[facility] AVONKyler [facility] (SBHLAB)[address] COMPREHENSIVE METABOLIC PANE Rylan 04-04-2024 Albumin [Mass/Vol] 4.3 g/dL Normal 3.5-5.0 [facility] Comment on above: Performed By: #### L AB17, LAB46, LAB99 ####Watch Assembler: SHENA GUERIN ([id number])[facility] AVONKyler [facility] (SBHLAB)[address] [place] [address] [place] ALP [Catalytic activity/Vol] 183 U/L High 40-150 [facility] Comment on above: Performed By: #### L AB17, LAB46, LAB99 ####Watch Assembler: SHENA GUERIN ([phone])[facility] [place] (SBHLAB)[address] ALT [Catalytic activity/Vol] 166 U/L High <40 [facility] Comment on above: Performed By: #### L AB17, LAB46, LAB99 ####Watch Assembler: SHENA GUERIN ([phone])[facility] THIENN (SBHLAB)[address] Anion gap [Moles/Vol] 14 mmol/L High 3-13 [facility] Comment on above: Performed By: #### L AB17, LAB46, LAB99 ####Watch Assembler: SHENA GUERIN ([id number])[facility] AVONKyler ENGELNEW MEX[facility]N (SBHLAB)[address] AST [Catalytic activity/Vol] 258 U/L High <34 [facility] Comment on above: Performed By: #### L AB17, LAB46, LAB99 ####Watch Assembler: SHENA GUERIN ([id number])[facility] OLLIENEW MEXICO [facility] AT L[facility]N (SBHLAB)[address] Bilirubin [Mass/Vol] 1.0 mg/dL Normal <1.2 [facility] Comment on above: Performed By: #### L AB17, LAB46, LAB99 ####Watch Assembler: SHENA GUERIN ([id number])[facility] AVONKyler ENGELNEW MEXICO [facility] (SBHLAB)[address] Calcium [Mass/Vol] 9.3 mg/dL Normal 8.4-10.2 [facility] Comment on above: Performed By: #### L AB17, LAB46, LAB99 ####Watch Assembler: SHENA GUERIN ([phone])[facility] [place] [address] [place] Chloride [Moles/Vol] 102 mmol/L Normal 98-107 [facility] Comment on above: Performed By: #### L AB17, LAB46, LAB99 ####Watch Assembler: SHENA GUERIN ([id number])[facility] (SBHLAB)[address] [place] [address] [place] CO2 [Moles/Vol] 21 mmol/L Low 22-29 [facility] Comment on above: Performed By: #### L AB17, LAB46, LAB99 ####Watch Assembler: SHENA GUERIN ([phone])[facility] (SB[facility]AB)[address] Creatinine [Mass/Vol] 0.72 mg/dL Normal 0.72-1.25 [facility] Comment on above: Performed By: #### L AB17, LAB46, LAB99 ####Watch Assembler: SHENA GUERIN ([id number])[facility] AVONKyler [place] (SBHLAB)[address] GLOMERULAR FILTRATION RATE ML/MIN/1.73 SQ M.PREDICTED >90.0 Normal >60.0 [facility] Comment on above: Result Comment: Calc ulation based on the Chronic Kidney Disease Epidemiology Collaboration (CKD-EPI) equation refit without adjustment for race Performed By: #### L AB17, LAB46, LAB99 ####Watch Assembler: SHENA GUERIN ([id number])[facility] (SBHLAB)[address] Glucose [Mass/Vol] 150 mg/dL High 74-100 [facility] Comment on above: Performed By: #### L AB17, LAB46, LAB99 ####Watch Assembler: SHENA GUERIN ([phone])[facility] (SBHLAB)[address] Potassium [Moles/Vol] 3.5 mmol/L Normal 3.5-5.1 [facility] Comment on above: Result Comment: [facility] potassium values may be up to 0.5 mmol/L lower than serum values. Performed By: #### L AB17, LAB46, LAB99 ####Watch Assembler: SHENA GUERIN ([id number])[facility] (SBHLAB)[address] Protein [Mass/Vol] 8.0 g/dL Normal 6.4-8.3 [facility] Comment on above: Performed By: #### L AB17, LAB46, LAB99 ####Watch Assembler: SHENA GUERIN ([phone])[facility] (SBHLAB)[address] Sodium [Moles/Vol] 137 mmol/L Normal 136-145 [facility] Comment on above: Performed By: #### L AB17, LAB46, LAB99 ####Watch Assembler: SHENA GUERIN ([id number])[facility] (SBHLAB)[address] Urea nitrogen [Mass/Vol] 4 mg/dL Low 8-21 [facility] Comment on above: Performed By: #### L AB17, LAB46, LAB99 ####Watch Assembler: SHENA GUERIN ([phone])[facility] (SBHLAB)[address] ABDOMEN PELVIS W CONTRAST on 04-04-2024 CT ABDOMEN PELVIS W CONTRAST Normal [facility] CT Abdomen and Pelvis W cont rast Ellen 04-04-2024 1. Mild peripancreat ic fat stranding and edema; correlate with mild acute pancreatitis. 2. The liver demonstrates generalized diminished attenuation as compared to the spleen, compatible with hepatic steatosis. Report Dictated on Electronically Signed By: Doug Parker MD Electronically Signed Date/Time: 04/04/2024 5:54 AM [facility] [employer] Patient Name: RORO CLAIRE : 1985 [...] Unremarkable osseous structures. No suspicious osseous lesion. [facility] Doug Parker MD - 04/04/2024 [...] Electronically Signed Date/Time: 04/04/2024 5:54 AM EST [facility] Radiology Study observation (narrative) [facility] CT Abdomen and Pelvis W cont rast IVOrdered By: Doug Parker on 04-04-2024 [facility] [employer] Work Phone: Comprehensive metabolic 1998 panelon 04-04-2024 Albumin [Mass/Vol] 4.3 g/dL 3.5 - 5.0 g/dL [facility] ALP [Catalytic activity/Vol] 183 U/L High 40 - 150 U/L [facility] ALT [Catalytic activity/Vol] 166 U/L High NINF - 40 U/L [facility] Anion gap [Moles/Vol] 14 mmol/L High 3 - 13 mmol/L [facility] AST [Catalytic activity/Vol] 258 U/L High NINF - 34 U/L [facility] Bilirubin [Mass/Vol] 1 mg/dL NINF - 1.2 mg/dL [facility] Calcium [Mass/Vol] 9.3 mg/dL 8.4 - 10. 2 mg/dL [facility] Chloride [Moles/Vol] 102 mmol/L 98 - 10 7 mmol/L [facility] CO2 [Moles/Vol] 21 mmol/L Low 22 - 29 mmol/L [facility] Creatinine [Mass/Vol] 0.72 mg/dL 0.72 - 1.25 mg/dL [facility] GFR/1.73 sq M.predicted (S/P/Bld) [Vol rate/Area] - PINF [facility] Comment on above: Calculation based on the Chronic Kidney Disease Epidemiology Collaboration (CKD-EPI) equation refit without adjustment for race Glucose [Mass/Vol] 150 mg/dL High 74 - 100 mg/dL [facility] Potassium [Moles/Vol] 3.5 mmol/L 3.5 - 5.1 mmol/L [facility] Comment on above: Plasma potassium víctor ues may be up to 0.5 mmol/L lower than serum values. Protein [Mass/Vol] 8 g/dL 6.4 - 8.3 g/dL [facility] Sodium [Moles/Vol] 137 mmol/L 136 - 145 mmol/L [facility] Urea nitrogen [Mass/Vol] 4 mg/dL Low 8 - 21 mg/dL [facility] Health Consulton 04-04-2024 Consult Normal [facility] Consult Normal [facility] DRUGS OF ABUSEon 04-04-2024 AMPHETAMINE SCREEN Positive Normal [facility] Comment on above: Performed By: #### L [id number] ####Watch Assembler: SHENA GUERIN ([id number])[facility] (SBHLAB)[address] BARBITURATES SCREEN Negative Normal [facility] Comment on above: Performed By: #### L [id number] ####Watch Assembler: SHENA GUERIN ([id number])[facility])[address] BENZODIAZEPINE SCREEN Negative [facility] Comment on above: Performed By: #### L [id number] ####Watch Assembler: SHENA GUERIN ([phone])[facility] (SBHLAB)[address] COCAINE METAB. SCREEN Negative Normal [facility] [facility] Comment on above: Performed By: #### L [id number] ####Watch Assembler: SHENA GUERIN ([id number])[facility] ([facility])[address] [place] [address] FENTANYL SCREEN, UR QUAL Negative Normal [facility] Comment on above: Result Comment: PIEDAD Echeverria [...] under separate order. Performed By: #### L [id number] ####Watch Assembler: SHENA GUERIN ([id number])[facility] [place] ([facility])[address] METHADONE SCREEN Negative Normal [facility] Comment on above: Performed By: #### L [id number] ####Watch Assembler: SHENA CHAMPAGNEBETTY ([id number])[facility] [place] ([facility])[address] OPIATES SCREEN Positive Normal [facility] Comment on above: Performed By: #### L [id number] ####Watch Assembler: SHENA CHAMPAGNEBETTY ([id number])[facility] [place] ([facility])[address] OXYCODONE SCREEN Negative Normal [facility] Comment on above: Performed By: #### L [id number] ####Watch Assembler: SHENA GUERIN ([id number])[facility] [place] ([facility])[address] PHENCYCLIDINE SCREEN Negative Normal [facility] Comment on above: Performed By: #### L [id number] ####Watch Assembler: SHENA CHAMPAGNEBETTY ([id number])[facility] ([facility])[address] ECG 12-LEADon 04-04-2024 ECG 12-LEAD IMPRESSION: Sinus rhythm LVH by voltage No change compared to previous ekg Electronically Signed On 04-04-2024 14:20:40 EST by Grady [facility] ECG 12-LEAD IMPRESSION: Sinus tachycardia No change compared to previous ekg Electronically Signed On 04-04-2024 08:54:10 EST by Grady [facility] ED Provider Noteon ED Provider Note Normal [facility] ETHANOLon 04-04-2024 ETHANOL IN SER/PLAS 222 mg/dL High <10 [facility] Comment on above: Result Comment: This sample may have been collected by using an alcohol pad to swab the skin. Ethanol-containing antiseptics before venipuncture may not be causes of spurious or false positive results of alcohol measurement at least when ideal venipunctures can be performed. However, under non-ideal collection conditions, alcohol contamination is a possibility. Results to be correlated clinically.ORDER COMMENTS:PALLIATIVE CARE NURSE PRACTITIONER depression is seen >100 mg/dL.NOTE: This result is for medical treatment only. Analysis performed using non-forensic procedures. Performed By: #### L AB17, LAB46, LAB99 ####Watch Assembler: SHENA GUERIN ([id number])[facility] ([facility])[address] [place] [address] ETHYL GLUCURONIDE SCREEN, UR INEon 04-04-2024 ETHYL GLUCURONIDE, URINE Positive Normal Negative [facility] Comment on above: Result Comment: [...] been determined by the clinical laboratories of [facility]. Performed By: #### L [id number] ####Watch Assembler: JUDITH MARKHAM ([id number])[facility] ([facility])[address] [place] [address] Ethanol (Bld) [Mass/Vol]on 0 04-04-2024 Ethanol [Mass/Vol] 222 mg/dL High NINF - 10 mg/dL [facility] Comment on above: This sample may have [...] Interpretation and review of laboratory results Abnormal [facility] PALLIATIVE CARE NURSE PRACTITIONER depression is se en >100 mg/dL. NOTE: This result is for medical treatment only. Analysis performed using non-forensic procedures. [facility] LACTIC ACID WITH REFLEXon Lactate [Moles/Vol] 2.0 mmol/L Normal 0.5-2.2 [facility] Comment on above: Performed By: #### L [id number] ####Watch Assembler: SHENA GUERIN ([id number])[facility] ([facility])[address] Lactate [Moles/Vol] 3.0 mmol/L High 0.5-2.2 [facility] Comment on above: Performed By: #### L [id number] ####Watch Assembler: SHENA GUERIN ([id number])[facility] ([facility])[address] [place] [address] Lactate [Moles/Vol] 2.6 mmol/L High 0.5-2.2 [facility] Comment on above: Performed By: #### L [id number] ####Watch Assembler: SHENA GUERIN ([id number])[facility] ([facility])[address] [place] [address] LIPASEon 04-04-2024 Lipase [Catalytic activity/Vol] 101 U/L High <55 [facility] Comment on above: Performed By: #### L AB17, LAB46, LAB99 ####Watch Assembler: SHENA GUERIN ([id number])[facility] ([facility])[address] [place] [address] Laboratory - Chemistry and C hemistry - challengeon 04-04-2024 Lactate [Moles/Vol] 2 mmol/L 0.5 - 2. 2 mmol/L [facility] Lactate [Moles/Vol] 3 mmol/L High 0.5 - 2. 2 mmol/L [facility] Lactate [Moles/Vol] 2.6 mmol/L High 0.5 - 2. 2 mmol/L [facility] Lipase [Catalytic activity/Vol] 101 U/L High NINF - 55 U/L [facility] Laboratory - Coagulationon 0 04-04-2024 aPTT Coag (PPP) [Time] 27.1 s 20.0 - 30.5 s [facility] INR Coag (PPP) [Relative time] 1.1 {INR} 0.9 - 1.1 [facility] Comment on above: Recommended Anticoag ulant Therapy: [...] 12.8 s High 9.0 - 12.0 s [facility] - Drug toxicology on 04-04-2024 Amphetamines Screen method >1000 ng/mL Ql (U) Positive [facility] Barbiturates Screen method >200 ng/mL Ql (U) Negative [facility] Benzodiazepines Ql (U) Negative [facility] Methadone Screen Ql (U) Negative S [facility] Opiates Screen Ql (U) Positive [facility] oxyCODONE Ql (U) Negative [facility] Phencyclidine Ql (U) Negative [facility] No Panel Informationon 04-04 P [place] 51 degrees [facility] W[place] Interval 158 ms [facility] QRS [place] -6 degrees [facility] QRSD Interval 91 ms [facility] QT Interval 387 ms [facility] QTC Interval 447 ms [facility] T Wave [place] 6 degrees [facility] Sinus rhythm LVH by voltage No change compared to previous ekg Electronically Signed On 04-04-2024 14:20:40 EST by Grady Dial M D - 04/04/2024 IMPRESSION: Sinus rhythm LVH by voltage No change compared to previous ekg Electronically Signed On 04-04-2024 14:20:40 EST by Grady Julien [facility] Interpretation and review of laboratory results Normal [facility] COCAINE METAB. SCREEN Negative [facility] FENTANYL SCREEN, UR QUAL Negative [facility] The expected value f or all of [...] is needed, request confirmation under separate order. [employer] Interpretation and review of laboratory results Abnormal [employer] Interpretation and review of laboratory results Abnormal [facility] [place] [facility] [employer] Sinus tachycardia No change compared to previous ekg Electronically Signed On 04-04-2024 08:54:10 EST by Grady Dial M D - 04/04/2024 IMPRESSION: Sinus tachycardia No change compared to previous ekg Electronically Signed On 04-04-2024 08:54:10 EST by Grady Julien [facility] [employer] Interpretation and review of laboratory results Abnormal [employer] Interpretation and review of laboratory results Abnormal [employer] No Panel InformationOrdered By: Christiano Hadley on 04-04-2024 ETHYL GLUCURONIDE, URINE Positive Negative [facility] Ethyl Glucuronide castillo s been screened by [...] been determined by the clinical laboratories of [facility]. [employer] No Panel InformationOrdered By: Grady Julien on 04-04-2024 P [place] 27 degrees [employer] Work Phone: [place] Interval 163 ms [employer] Work Phone: QRS [place] 54 degrees [employer] Work Phone: QRSD Interval 93 ms [employer] Work Phone: QT Interval 333 ms [employer] Work Phone: QTC Interval 467 ms [facility] [employer] Work Phone: T Wave [place] 16 degrees [facility] [employer] Work Phone: [facility] [employer] Work Phone: PROTIME AND APTTon aPTT Coag (Bld) [Time] 27.1 s Normal 20.0-30.5 [facility] Comment on above: Performed By: #### L [id number] ####Watch Assembler: SHENA GUERIN ([id number])[facility] ([facility])[address] INR Coag (PPP) [Relative time] 1.1 {INR} Normal 0.9-1.1 [facility] Comment on above: Result Comment: Mason mmended [...] prevent Myocardial Infarction Performed By: #### L [id number] ####Watch Assembler: SHENA GUERIN ([id number])[facility] ([facility])[address] [place] [address] PT Coag (PPP) [Time] 12.8 s High 9.0-12.0 [facility] Comment on above: Performed By: #### L [id number] ####Watch Assembler: SHENA GUERIN ([phone])[facility] ([facility])[address] [place] [address] Progress Noteon 04-04-2024 Progress Note Normal [facility] Progress Note Normal [facility] Urinalysis complete panel (U )on 04-04-2024 Bilirubin Ql (U) Negative Negative mg/dL [facility] Clarity (U) Clear Clear [facility] Color (U) Light Yellow Lt. Yellow [facility] Glucose Ql (U) Normal Normal (<70) mg/dL [facility] Hemoglobin Ql (U) Negative Negative mg/dL [facility] Interpretation and review of laboratory results Normal [facility] Ketones (U) [Mass/Vol] Negative Negat chan mg/dL [facility] Leukocyte esterase Test strip Ql (U) Negative Negative Teofilo/uL [facility] Nitrite Ql (U) Negative Negative [facility] pH (U) 6.0 [pH] 5.0 - 8.0 pH [facility] Protein (U) [Mass/Vol] Negative Negat chan mg/dL [facility] Specific gravity (U) [Rel density] 1.008 1.005 - 1.030 [facility] Urobilinogen (U) [Mass/Vol] Normal Normal (0-1) mg/dL [facility] Vital signson 04-04-2024 Heart rate 80 /min bpm [facility] Vital signsOrdered By: Gato Julien on 04-04-2024 Heart rate 118 /min bpm [facility] Work Phone: Progress Noteon 03-30-2024 Progress Note Normal [facility] 36on 03-29-2024 36 LVM for patient, advising ok for virtual per Dr. Escobar Appt has been updated to virtual Normal [facility] 36 Is it ok to move patient to a virtual appointment? Normal [facility] 36 Normal [facility] 36on 03-23-2024 36 Normal [facility] CBC (HEMOGRAM)on 03-22-2024 Erythrocyte distribution width (RBC) [Ratio] 14.9 % Normal 11.5-15.0 [facility] Comment on above: Performed By: #### L [id number] ####Watch Assembler: SHENA GUERIN ([id number])[facility] ([facility])[address] [place] [address] Hematocrit (Bld) [Volume fraction] 45.4 % Normal 40.0-52.0 [facility] Comment on above: Performed By: #### L [id number] ####Watch Assembler: SHENA [id number])[facility] ([facility])[address] Hemoglobin (Bld) [Mass/Vol] 15.3 g/dL Normal 13.0-18.0 [facility] Comment on above: Performed By: #### L [id number] ####Watch Assembler: SHENA GUERIN ([id number])[facility]Kyler [facility] ([facility])[address] MCH (RBC) [Entitic mass] 29.4 pg Normal 26.0-34.0 [facility] Comment on above: Performed By: #### L [id number] ####Watch Assembler: SHENA GUERIN ([id number])[facility] [place] [facility])[address] MCHC 33.7 % Normal 30.5-36.0 [facility] Comment on above: Performed By: #### L [id number] ####Watch Assembler: SHENA GUERIN ([id number])[facility] ([facility])[address] MCV (RBC) [Entitic vol] 87.1 fL Normal 77.0-99.0 S [facility] Comment on above: Performed By: #### L [id number] ####Watch Assembler: SHENA GUERIN ([id number])[facility]yler [facility] ([facility])[address] [place] [address] Platelet mean volume (Bld) [Entitic vol] 9.7 fL Normal 9.0-12.7 [facility] Comment on above: Performed By: #### L [id number] ####Watch Assembler: SHENA GUERIN ([id number])[facility] [place] ([facility])[address] [place] [address] [place] Platelets (Bld) [#/Vol] 286 10*3/uL Normal 140-440 [facility] Comment on above: Performed By: #### L [id number] ####Watch Assembler: SHENA GUERIN ([id number])[facility] ([facility])[address] RBC (Bld) [#/Vol] 5.21 10*6/uL Normal 4.40-5.90 [facility] Comment on above: Performed By: #### L [id number] ####Watch Assembler: SHENA GUERIN ([id number])[facility] [place] ([facility])[address] WBC (Bld) [#/Vol] 6.6 10*3/uL Normal 3.6-10.7 [facility] Comment on above: Performed By: #### L [id number] ####Watch Assembler: SHENA GUERIN ([id number])[facility] [place] ([facility])[address] [place] [address] CBC panel Auto (Bld)on 03-22 Erythrocyte distribution width (RBC) [Ratio] 14.9 % 11.5 - 15.0 % [facility] Hematocrit (Bld) [Volume fraction] 45.4 % 40.0 - 52.0 % [facility] Hemoglobin (Bld) [Mass/Vol] 15.3 g/dL 13.0 - 18.0 g/dL [facility] Interpretation and review of laboratory results Normal [facility] MCH (RBC) [Entitic mass] 29.4 pg 26.0 - 34.0 pg [facility] MCHC (RBC) [Mass/Vol] 33.7 % 30.5 - 36.0 % [facility] MCV (RBC) [Entitic vol] 87.1 fL 77.0 - 99.0 fL [facility] Platelet mean volume (Bld) [Entitic vol] 9.7 fL 9.0 - 12.7 fL [facility] Platelets (Bld) [#/Vol] 286 10*3/uL 140 - 440 10*3/uL [facility] RBC (Bld) [#/Vol] 5.21 10*6/uL 4.40 - 5.9 0 10*6/uL [facility] WBC (Bld) [#/Vol] 6.6 10*3/uL 3.6 - 10.7 10*3/uL [facility] COMPREHENSIVE METABOLIC PANE Rylan 02-11-2025 Albumin [Mass/Vol] 4.5 g/dL Normal 3.5-5.0 [facility] Comment on above: Performed By: #### L AB99, LAB17 ####Watch Assembler: SHENA GUERIN ([id number])[facility] [place] ([facility])[address] ALP [Catalytic activity/Vol] 167 U/L High 40-150 [facility] Comment on above: Performed By: #### L AB99, LAB17 ####Watch Assembler: SHENA GUERIN ([id number])[facility] [place] ([facility])[address] [place] [address] [place] ALT [Catalytic activity/Vol] 191 U/L High <40 [facility] Comment on above: Performed By: #### L CLARISSE, LAB17 ####Watch Assembler: SHENA GUERIN ([id number])[facility] [place] ([facility])[address] [place] [address] [place] Anion gap [Moles/Vol] 17 mmol/L High 3-13 [facility] Comment on above: Performed By: #### L ABIsai, LAB17 ####Watch Assembler: SHNEA GUERIN ([id number])[facility] [place] ([facility])[address] [place] [address] [place] AST [Catalytic activity/Vol] 260 U/L High <34 [facility] Comment on above: Performed By: #### L ABIsai, LAB17 ####Watch Assembler: SHENA GUERIN ([id number])[facility] [place] ([facility])[address] [place] [address] [place] Bilirubin [Mass/Vol] 0.9 mg/dL Normal <1.2 [facility] Comment on above: Performed By: #### L AB99, LAB17 ####Watch Assembler: SHENA GUERIN ([id number])[facility] [place] ([facility])[address] [place] [address] [place] Calcium [Mass/Vol] 9.6 mg/dL Normal 8.4-10.2 [facility] Comment on above: Performed By: #### L AB99, LAB17 ####Watch Assembler: SHENA GUERIN ([id number])[facility]yler [facility]ELCAP[facility]EN ([facility])[address] Chloride [Moles/Vol] 103 mmol/L Normal 98-107 [facility] Comment on above: Performed By: #### L AB99, LAB17 ####Watch Assembler: SHENA GUERIN ([id number])[facility]BNEW [facility] ([facility])[address] CO2 [Moles/Vol] 19 mmol/L Low 22-29 [facility] Comment on above: Performed By: #### L AB99, LAB17 ####Watch Assembler: SHENA GUERIN ([id number])[facility]ONKyler [facility] ([facility])[address] Creatinine [Mass/Vol] 0.73 mg/dL Normal 0.72-1.25 [facility] Comment on above: Performed By: #### L AB99, LAB17 ####Watch Assembler: SHENA GUERIN ([id number])[facility] ([facility])[address] GLOMERULAR FILTRATION RATE ML/MIN/1.73 SQ M.PREDICTED >90.0 Normal >60.0 [facility] Comment on above: Result Comment: Calc ulation based on the Chronic Kidney Disease Epidemiology Collaboration (CKD-EPI) equation refit without adjustment for race Performed By: #### L AB99, LAB17 ####Watch Assembler: SHENA GUERIN ([id number])[facility] [place] ([facility])[address] [place] [address] [place] Glucose [Mass/Vol] 114 mg/dL High 74-100 [facility] Comment on above: Performed By: #### L AB99, LAB17 ####Watch Assembler: SHENA GUERIN ([id number])[facility] BARBCAPRICEN ([facility])[address] [place] [address] [place] Potassium [Moles/Vol] 4.0 mmol/L Normal 3.5-5.1 [facility] Comment on above: Result Comment: [facility] potassium values may be up to 0.5 mmol/L lower than serum values. Performed By: #### L AB99, LAB17 ####Watch Assembler: SHENA GUERIN ([id number])[facility] ([facility])[address] Protein [Mass/Vol] 8.5 g/dL High 6.4-8.3 [facility] Comment on above: Performed By: #### L AB99, LAB17 ####Watch Assembler: SHENA GUERIN ([id number])[facility] ([facility])[address] Sodium [Moles/Vol] 139 mmol/L Normal 136-145 [facility] Comment on above: Performed By: #### L AB99, LAB17 ####Watch Assembler: SHENA GUERIN ([id number])[facility] ([facility])[address] Urea nitrogen [Mass/Vol] 3 mg/dL Low 8-21 [facility] Comment on above: Performed By: #### L AB99, LAB17 ####Watch Assembler: SHE[facility] GUERIN ([id number])[facility] ([facility])[address] Comprehensive metabolic 1998 panelon 03-22-2024 Albumin [Mass/Vol] 4.5 g/dL 3.5 - 5.0 g/dL [facility] ALP [Catalytic activity/Vol] 167 U/L High 40 - 150 U/L [facility] ALT [Catalytic activity/Vol] 191 U/L High NINF - 40 U/L [facility] Anion gap [Moles/Vol] 17 mmol/L High 3 - 13 mmol/L [facility] AST [Catalytic activity/Vol] 260 U/L High NINF - 34 U/L [facility] Bilirubin [Mass/Vol] 0.9 mg/dL NINF - 1.2 mg/dL [facility] Calcium [Mass/Vol] 9.6 mg/dL 8.4 - 10. 2 mg/dL [facility] Chloride [Moles/Vol] 103 mmol/L 98 - 10 7 mmol/L [facility] CO2 [Moles/Vol] 19 mmol/L Low 22 - 29 mmol/L [facility] Creatinine [Mass/Vol] 0.73 mg/dL 0.72 - 1.25 mg/dL [facility] GFR/1.73 sq M.predicted (S/P/Bld) [Vol rate/Area] - PINF [facility] Comment on above: Calculation based on the Chronic Kidney Disease Epidemiology Collaboration (CKD-EPI) equation refit without adjustment for race Glucose [Mass/Vol] 114 mg/dL High 74 - 100 mg/dL [facility] Interpretation and review of laboratory results Abnormal [facility] Potassium [Moles/Vol] 4 mmol/L 3.5 - 5.1 mmol/L [facility] Comment on above: Plasma potassium víctor ues may be up to 0.5 mmol/L lower than serum values. Protein [Mass/Vol] 8.5 g/dL High 6.4 - 8.3 g/dL [facility] Sodium [Moles/Vol] 139 mmol/L 136 - 145 mmol/L [facility] Urea nitrogen [Mass/Vol] 3 mg/dL Low 8 - 21 mg/dL [facility] ED Nursing Noteon 03-22-2024 ED Nursing Note Normal [facility] ED Nursing Note Normal [facility] ED Provider Noteon ED Provider Note Normal [facility] LIPASEon 03-22-2024 Lipase [Catalytic activity/Vol] 125 U/L High <55 [facility] Comment on above: Performed By: #### L AB99, LAB17 ####Watch Assembler: SHENA GUERIN ([id number])[facility] ([facility])[address] [place] [address] Laboratory - Chemistry and C hemistry - challengeon 03-22-2024 Lipase [Catalytic activity/Vol] 125 U/L High NINF - 55 U/L [facility] Lipase [Catalytic activity/V ol]on 03-22-2024 Interpretation and review of laboratory results Abnormal [facility] 36on 02-23-2024 36 Patients appointment has been moved to 03/09/24 at 3pm Normal [facility] 36on 02-22-2024 36 Normal [facility] 36 LVM with pnt to call office to get rescheduled from the to the [facility] 36on 02-20-2024 36 Called patient for follow up, voicemail received, message left. Normal [facility] [id number] 02-08-2024 [id number] Normal [facility] [id number] Normal [facility] 94on 02-08-2024 94 Normal [facility] Nursing Noteon 02-08-2024 Nursing Note Normal [facility] Nursing Note Normal [facility] Nursing Note Normal [facility] 30on 02-07-2024 30 Normal [facility] Nursing Noteon 02-07-2024 Nursing Note Normal [facility] Progress Noteon 02-07-2024 Progress Note Normal [facility] Progress Note Normal [facility] 30on 02-06-2024 30 Normal [facility] 30 Pt able to verbalize signs/symptoms of withdrawal . Normal [facility] Consulton 02-06-2024 Consult Normal [facility] Nursing Noteon 02-06-2024 Nursing Note Normal [facility] Nursing Note Normal [facility] Progress Noteon 02-06-2024 Progress Note Normal [facility] Progress Note Normal [facility] Progress Note Normal [facility] [id number] 02-05-2024 [id number] Normal [facility] BASIC METABOLIC PANELon 01-10 Anion gap [Moles/Vol] 10 mmol/L Normal 3-13 [facility] Comment on above: Performed By: #### L [id number] ####Watch Assembler: JUDITH MARKHAM ([id number])[facility] ([facility])[address] [place] [address] Calcium [Mass/Vol] 8.4 mg/dL Normal 8.4-10.2 [facility] Comment on above: Performed By: #### L AB15 ####Watch Assembler: JUDITH MARKHAM ([id number])[facility] ([facility])[address] [place] [address] Chloride [Moles/Vol] 107 mmol/L Normal 98-107 [facility] Comment on above: Performed By: #### L AB15 ####Watch Assembler: JUDITH MARKHAM ([id number])[facility] ([facility])[address] [place] [address] CO2 [Moles/Vol] 23 mmol/L Normal 22-29 [facility] Comment on above: Performed By: #### L AB15 ####Watch Assembler: JUDITH MARKHAM ([id number])[facility] [place] [address] Creatinine [Mass/Vol] 0.64 mg/dL Low 0.72-1.25 [facility] Comment on above: Performed By: #### L AB15 ####Watch Assembler: JUDITH MARKHAM ([id number])[facility] ([facility])[address] [place] [address] GLOMERULAR FILTRATION RATE ML/MIN/1.73 SQ M.PREDICTED >90.0 Normal >60.0 [facility] Comment on above: Result Comment: Calc ulation based on the Chronic Kidney Disease Epidemiology Collaboration (CKD-EPI) equation refit without adjustment for race Performed By: #### L AB15 ####Watch Assembler: JUDITH MARKHAM ([id number])[facility] [place] [address] Glucose [Mass/Vol] 100 mg/dL Normal 74-100 [facility] Comment on above: Performed By: #### L AB15 ####Watch Assembler: JUDITH MARKHAM ([id number])[facility])[address] [place] [address] [place] Potassium [Moles/Vol] 4.3 mmol/L Normal 3.5-5.1 [facility] Comment on above: Result Comment: [facility] potassium values may be up to 0.5 mmol/L lower than serum values. Performed By: #### L AB15 ####Watch Assembler: JUDITH MARKHAM ([id number])[facility])[address] Sodium [Moles/Vol] 140 mmol/L Normal 136-145 [facility] Comment on above: Performed By: #### L AB15 ####Watch Assembler: JUDITH MARKHAM ([id number])[facility] ([facility])[address] [place] [address] Urea nitrogen [Mass/Vol] 4 mg/dL Low 8-21 [facility] Comment on above: Performed By: #### L AB15 ####Watch Assembler: JUDITH MARKHAM ([id number])[facility] [place] [address] Basic metabolic 1998 panelon 02-05-2024 Anion gap [Moles/Vol] 10 mmol/L 3 - 13 mmol/L [facility] Calcium [Mass/Vol] 8.4 mg/dL 8.4 - 10. 2 mg/dL [facility] Chloride [Moles/Vol] 107 mmol/L 98 - 10 7 mmol/L [facility] CO2 [Moles/Vol] 23 mmol/L 22 - 29 mmol/L [facility] Creatinine [Mass/Vol] 0.64 mg/dL Low 0.72 - 1.25 mg/dL [facility] GFR/1.73 sq M.predicted (S/P/Bld) [Vol rate/Area] - PINF [facility] Comment on above: Calculation based on the Chronic Kidney Disease Epidemiology Collaboration (CKD-EPI) equation refit without adjustment for race Glucose [Mass/Vol] 100 mg/dL 74 - 100 mg/dL [facility] Interpretation and review of laboratory results Abnormal [facility] Potassium [Moles/Vol] 4.3 mmol/L 3.5 - 5.1 mmol/L [facility] Comment on above: Plasma potassium víctor ues may be up to 0.5 mmol/L lower than serum values. Sodium [Moles/Vol] 140 mmol/L 136 - 145 mmol/L [facility] Urea nitrogen [Mass/Vol] 4 mg/dL Low 8 - 21 mg/dL [facility] CBC W Auto Differential pane l (Bld)on 02-05-2024 Basophils (Bld) [#/Vol] 0.1 10*3/uL 0.0 - 0.2 10*3/uL [facility] Basophils/100 WBC (Bld) 1 % 0.0 - 2.0 % [facility] Eosinophils (Bld) [#/Vol] 0.1 10*3/uL 0.0 - 0.5 10*3/uL [facility] Eosinophils/100 WBC (Bld) 1 % 0.0 - 6.0 % [facility] Erythrocyte distribution width (RBC) [Ratio] 13.7 % 11.5 - 15.0 % [facility] Hematocrit (Bld) [Volume fraction] 39.1 % Low 40.0 - 52.0 % [facility] Hemoglobin (Bld) [Mass/Vol] 13.1 g/dL 13.0 - 18.0 g/dL [facility] Immature granulocytes (Bld) [#/Vol] 0 10*3/uL NINF - 0.1 10*3/uL [facility] Immature granulocytes/100 WBC (Bld) 0.2 % 0.0 - 2.0 % [facility] Interpretation and review of laboratory results Abnormal [facility] Lymphocytes (Bld) [#/Vol] 1.8 10*3/uL 1.0 - 4.3 10*3/uL [facility] Lymphocytes/100 WBC (Bld) 35.1 % 15.0 - 45.0 % [facility] MCH (RBC) [Entitic mass] 30.2 pg 26.0 - 34.0 pg [facility] MCHC (RBC) [Mass/Vol] 33.5 % 30.5 - 36.0 % [facility] MCV (RBC) [Entitic vol] 90.1 fL 77.0 - 99.0 fL [facility] Monocytes (Bld) [#/Vol] 0.4 10*3/uL 0.0 - 0.9 10*3/uL [facility] Monocytes/100 WBC (Bld) 7.4 % 5.0 - 13.0 % [facility] Neutrophils (Bld) [#/Vol] 2.8 10*3/uL 1.8 - 7.5 10*3/uL [facility] Neutrophils/100 WBC (Bld) 55.3 % 38.0 - 82.0 % [facility] Nucleated RBC/100 WBC (Bld) [Ratio] 0 % [facility] Platelet mean volume (Bld) [Entitic vol] 9.9 fL 9.0 - 12.7 fL [facility] Platelets (Bld) [#/Vol] 282 10*3/uL 140 - 440 10*3/uL [facility] RBC (Bld) [#/Vol] 4.34 10*6/uL Low 4.40 - 5.9 0 10*6/uL [facility] WBC (Bld) [#/Vol] 5 10*3/uL 3.6 - 10.7 10*3/uL [facility] CBC WITH AUTO DIFFERENTIALon 02-05-2024 Basophils (Bld) [#/Vol] 0.1 10*3/uL Normal 0.0-0.2 [facility] Comment on above: Performed By: #### L [id number] ####Watch Assembler: JUDITH MARKHAM ([id number])[facility] ([facility])[address] [place] [address] Basophils/100 WBC (Bld) 1.0 % Normal 0.0-2.0 [facility] Comment on above: Performed By: #### L [id number] ####Watch Assembler: JUDITH MARKHAM ([id number])[facility] ([facility])[address] [place] [address] [place] Eosinophils (Bld) [#/Vol] 0.1 10*3/uL Normal 0.0-0.5 [facility] Comment on above: Performed By: #### L [id number] ####Watch Assembler: JUDITH MARKAHM ([id number])[facility] ([facility])[address] [place] [address] [place] Eosinophils/100 WBC (Bld) 1.0 % Normal 0.0-6.0 [facility] Comment on above: Performed By: #### L [id number] ####Watch Assembler: JUDITH MARKHAM ([id number])[facility] ([facility])[address] [place] [address] [place] Erythrocyte distribution width (RBC) [Ratio] 13.7 % Normal 11.5-15.0 [facility] Comment on above: Performed By: #### L [id number] ####Watch Assembler: JUDITH [id number])[facility])[address] [place] [address] Hematocrit (Bld) [Volume fraction] 39.1 % Low 40.0-52.0 [facility] Comment on above: Performed By: #### L [id number] ####Watch Assembler: JUDITH MARKHAM ([id number])[facility])[address] [place] [address] Hemoglobin (Bld) [Mass/Vol] 13.1 g/dL Normal 13.0-18.0 [facility] Comment on above: Performed By: #### L [id number] ####Watch Assembler: JUDITH MARKHAM ([id number])[address] IMMATURE GRANS % 0.2 % Normal 0.0-2.0 [facility] Comment on above: Performed By: #### L [id number] ####Watch Assembler: JUIDTH MARKHAM ([id number])[facility])[address] [place] [address] IMMATURE GRANS ABSOLUTE 0.0 10*3/uL Normal <0.1 [facility] Comment on above: Performed By: #### L [id number] ####Watch Assembler: JUDITH MARKHAM ([id number])[facility])[address] [place] [address] Lymphocytes (Bld) [#/Vol] 1.8 10*3/uL Normal 1.0-4.3 [facility] Comment on above: Performed By: #### L [id number] ####Watch Assembler: JUDITH MARKHAM ([id number])[facility])[address] [place] [address] Lymphocytes/100 WBC (Bld) 35.1 % Normal 15.0-45.0 [facility] Comment on above: Performed By: #### L [id number] ####Watch Assembler: JUDITH MARKHAM ([id number])[facility])[address] [place] [address] MCH (RBC) [Entitic mass] 30.2 pg Normal 26.0-34.0 [facility] Comment on above: Performed By: #### L [id number] ####Watch Assembler: JUDITH MARKHAM ([id number])[facility])[address] [place] [address] MCHC 33.5 % Normal 30.5-36.0 [facility] Comment on above: Performed By: #### L [id number] ####Watch Assembler: JUDITH MARKHAM ([id number])[facility])[address] [place] [address] MCV (RBC) [Entitic vol] 90.1 fL Normal 77.0-99.0 [facility] Comment on above: Performed By: #### L [id number] ####Watch Assembler: JUDITH MARKHAM ([id number])[facility])[address] [place] [address] Monocytes (Bld) [#/Vol] 0.4 10*3/uL Normal 0.0-0.9 [facility] Comment on above: Performed By: #### L [id number] ####Watch Assembler: JUDITH MARKHAM ([id number])[facility])[address] [place] [address] Monocytes/100 WBC (Bld) 7.4 % Normal 5.0-13.0 [facility] Comment on above: Performed By: #### L [id number] ####Watch Assembler: JUDITH MARKHAM ([id number])[facility])[address] [place] [address] NEUTROPHILS ABSOLUTE 2.8 10*3/uL Normal 1.8-7.5 [facility] Comment on above: Performed By: #### L [id number] ####Watch Assembler: JUDITH MARKHAM ([id number])[address] Neutrophils/100 WBC (Bld) 55.3 % Normal 38.0-82.0 [facility] Comment on above: Performed By: #### L [id number] ####Watch Assembler: JUDITH MARKHAM ([id number])[facility] ([facility])[address] [place] [address] NRBC 0.0 /100 WBCs Normal 0.0-2.0 [facility] Comment on above: Performed By: #### L [id number] ####Watch Assembler: JUDITH MARKHAM ([id number])[facility] ([facility])[address] [place] [address] Platelet mean volume (Bld) [Entitic vol] 9.9 fL Normal 9.0-12.7 [facility] Comment on above: Performed By: #### L [id number] ####Watch Assembler: JUDITH MARKHAM ([id number])[facility])[address] [place] [address] Platelets (Bld) [#/Vol] 282 10*3/uL Normal 140-440 [facility] Comment on above: Performed By: #### L [id number] ####Watch Assembler: JUDITH MARKHAM ([id number])[facility] ([facility])[address] [place] [address] RBC (Bld) [#/Vol] 4.34 10*6/uL Low 4.40-5.90 [facility] Comment on above: Performed By: #### L [id number] ####Watch Assembler: JUDITH MARKHAM ([id number])[facility])[address] [place] [address] WBC (Bld) [#/Vol] 5.0 10*3/uL Normal 3.6-10.7 [facility] Comment on above: Performed By: #### L [id number] ####Watch Assembler: JUDITH MARKHAM ([id number])[facility])[address] [place] [address] Consulton 02-05-2024 Consult Normal [facility] ED Nursing Noteon 02-05-2024 ED Nursing Note Transport here to ke patient to Detox 4E, RN called for protective services. Normal [facility] ED Nursing Note Report given to RN o n 4E room 410. RN stated to leave left AC IV in place. Pt put in for transport Normal [facility] ED Nursing Note Protective services at bedside with patient for belongings check and wanding. Normal [facility] ED Nursing Note RN changed patient i nto 2 gowns and socks, belongings placed in 1 bag for officers to do belongings check. Patient read and signed rules of detox. Normal [facility] Nursing Noteon 02-05-2024 Nursing Note Pt medicated with vistaril for anxiety. 2209- Vistaril effective for anxiety, pt asleep at this time. Normal [facility] Nursing Note Pt asleep at this time. Normal [facility] Nursing Note Normal [facility] Nursing Note Normal [facility] BASIC METABOLIC PANELon - Anion gap [Moles/Vol] 11 mmol/L Normal 3-13 [facility] Comment on above: Order Comment: Repea t 30min after fluids Performed By: #### L AB46, LAB15 ####Watch Assembler: JUDITH MARKHAM ([id number])[address] Calcium [Mass/Vol] 8.3 mg/dL Low 8.4-10.2 [facility] Comment on above: Order Comment: Repea t 30min after fluids Performed By: #### L AB46, LAB15 ####Watch Assembler: JUDITH MARKHAM ([id number])[address] Chloride [Moles/Vol] 109 mmol/L High 98-107 [facility] Comment on above: Order Comment: Repea t 30min after fluids Performed By: #### L AB46, LAB15 ####Watch Assembler: JUDITH MARKHAM ([id number])[address] CO2 [Moles/Vol] 24 mmol/L Normal 22-29 [facility] Comment on above: Order Comment: Repea t 30min after fluids Performed By: #### L AB46, LAB15 ####Watch Assembler: JUDITH MARKHAM ([id number])[facility] [place] [address] Creatinine [Mass/Vol] 0.67 mg/dL Low 0.72-1.25 [facility] Comment on above: Order Comment: Repea t 30min after fluids Performed By: #### L AB46, LAB15 ####Watch Assembler: JUDITH MARKHAM ([id number])[facility] ([facility])[address] [place] [address] GLOMERULAR FILTRATION RATE ML/MIN/1.73 SQ M.PREDICTED >90.0 Normal >60.0 [facility] Comment on above: Order Comment: Repea t 30min after fluids Result Comment: Calc ulation based on the Chronic Kidney Disease Epidemiology Collaboration (CKD-EPI) equation refit without adjustment for race Performed By: #### L AB46, LAB15 ####Watch Assembler: JUDITH MARKHAM ([id number])[facility])[address] [place] [address] Glucose [Mass/Vol] 115 mg/dL High 74-100 [facility] Comment on above: Order Comment: Repea t 30min after fluids Performed By: #### L AB46, LAB15 ####Watch Assembler: JUDITH MARKHAM ([id number])[address] Potassium [Moles/Vol] 4.1 mmol/L Normal 3.5-5.1 [facility] Comment on above: Order Comment: Repea t 30min after fluids Result Comment: [facility] potassium values may be up to 0.5 mmol/L lower than serum values. Performed By: #### L AB46, LAB15 ####Watch Assembler: JUDITH MARKHAM ([id number])[facility])[address] [place] [address] Sodium [Moles/Vol] 144 mmol/L Normal 136-145 [facility] Comment on above: Order Comment: Repea t 30min after fluids Performed By: #### L AB46, LAB15 ####Watch Assembler: JUDITH MARKHAM ([id number])[facility])[address] [place] [address] Urea nitrogen [Mass/Vol] 4 mg/dL Low 8-21 [facility] Comment on above: Order Comment: Repea t 30min after fluids Performed By: #### L AB46, LAB15 ####Watch Assembler: JUDITH MARKHAM ([id number])[facility])[address] [place] [address] BLOOD GAS, VENOUSon 02-04-20 Base excess Calc (BldV) [Moles/Vol] -1.9000 mmol/L Normal -3.0-3.0 [facility] Comment on above: Performed By: #### L AB79 ####Watch Assembler: JUDITH MARKHAM ([id number])[facility])[address] [place] [address] CO2 [Moles/Vol] 24.2 mmol/L Normal 24.0-28.0 [facility] Comment on above: Performed By: #### L AB79 ####Watch Assembler: JUDITH MARKHAM ([id number])[facility])[address] [place] [address] HCO3 (Bld) [Moles/Vol] 23.0 mmol/L Normal 23.0-27.0 [facility] Comment on above: Performed By: #### L AB79 ####Watch Assembler: JUDITH MARKHAM ([id number])[facility])[address] [place] [address] Hemoglobin (Bld) [Mass/Vol] 15.0 g/dL Normal Screen only [facility] Comment on above: Performed By: #### L AB79 ####Watch Assembler: JUDITH MARKHAM ([id number])[facility])[address] [place] [address] OXYGEN (MM HG) IN VENOUS BLOOD 50.3 mm Hg Normal [facility] Comment on above: Performed By: #### L AB79 ####Watch Assembler: JUDITH MARKHAM ([id number])[facility] ([address] OXYGEN SATURATION (%) IN VENOUS BLOOD 76.9 % Normal [facility] Comment on above: Performed By: #### L AB79 ####Watch Assembler: JUDITH MARKHAM ([id number])[facility])[address] [place] [address] PCO2, LYRIC 39.7 mm Hg Low 40.0-55.0 [facility] Comment on above: Performed By: #### L AB79 ####Watch Assembler: JUDITH MARKHAM ([id number])[facility])[address] [place] [address] PH VENOUS 7.380 Normal 7.330-7.430 [facility] Comment on above: Performed By: #### L AB79 ####Watch Assembler: JUDITH MARKHAM ([id number])[address] SOURCE OF OXYGEN Room Air Normal [facility] Comment on above: Result Comment: PIEDAD Echeverria COMMENTS:Repeat 30min after fluidsAssessment of oxygenation is best done with an arterial blood gas determination. Reference ranges for pO2, bicarbonate, and base excess are for mixed venous blood. Specimens drawn from a peripheral vein will often have higher values. Performed By: #### L AB79 ####Watch Assembler: JUDITH MARKHAM ([id number])[address] Base excess Calc (BldV) [Moles/Vol] -12.41245 mmol/L Low -3.0-3.0 [facility] Comment on above: Performed By: #### L AB79 ####Watch Assembler: JUDITH MARKHAM ([id number])[facility])[address] [place] [address] CO2 [Moles/Vol] 17.1 mmol/L Low 24.0-28.0 [facility] Comment on above: Performed By: #### L AB79 ####Watch Assembler: JUDITH MARKHAM ([id number])[place] [address] [place] HCO3 (Bld) [Moles/Vol] 15.8 mmol/L Low 23.0-27.0 [facility] Comment on above: Performed By: #### L AB79 ####Watch Assembler: JUDITH MARKHAM ([id number])[facility])[address] [place] [address] Hemoglobin (Bld) [Mass/Vol] 13.5 g/dL Normal Screen only [facility] Comment on above: Performed By: #### L AB79 ####Watch Assembler: JUDITH MARKHAM ([id number])[facility])[address] [place] [address] OXYGEN (MM HG) IN VENOUS BLOOD 131.7 mm Hg Normal [facility] Comment on above: Performed By: #### L AB79 ####Watch Assembler: JUDITH MARKHAM ([id number])[facility])[address] [place] [address] OXYGEN SATURATION (%) IN VENOUS BLOOD 97.4 % Normal [facility] Comment on above: Performed By: #### L AB79 ####Watch Assembler: JUDITH MARKHAM ([id number])[facility])[address] [place] [address] PCO2, LYRIC 42.7 mm Hg Normal 40.0-55.0 [facility] Comment on above: Performed By: #### L AB79 ####Watch Assembler: JUDITH MARKHAM ([id number])[facility])[address] [place] [address] PH VENOUS 7.185 Low 7.330-7.430 [facility] Comment on above: Performed By: #### L AB79 ####Watch Assembler: JUDITH MARKHAM ([id number])[facility])[address] [place] [address] SOURCE OF OXYGEN Room Air Normal [facility] Comment on above: Result Comment: PIEDAD Echeverria COMMENTS:Assessment of oxygenation is best done with an arterial blood gas determination. Reference ranges for pO2, bicarbonate, and base excess are for mixed venous blood. Specimens drawn from a peripheral vein will often have higher values. Performed By: #### L AB79 ####Watch Assembler: JUDITH MARKHAM ([id number])[facility] ([facility] Basic metabolic 1998 panelOr dered By: Zoey Delaney on 02-04-2024 Anion gap [Moles/Vol] 11 mmol/L 3 - 13 mmol/L [facility] Calcium [Mass/Vol] 8.3 mg/dL Low 8.4 - 10. 2 mg/dL [facility] Chloride [Moles/Vol] 109 mmol/L High 98 - 10 7 mmol/L [facility] CO2 [Moles/Vol] 24 mmol/L 22 - 29 mmol/L [facility] Creatinine [Mass/Vol] 0.67 mg/dL Low 0.72 - 1.25 mg/dL [facility] GFR/1.73 sq M.predicted (S/P/Bld) [Vol rate/Area] - PINF [facility] Comment on above: Calculation based on the Chronic Kidney Disease Epidemiology Collaboration (CKD-EPI) equation refit without adjustment for race Glucose [Mass/Vol] 115 mg/dL High 74 - 100 mg/dL [facility] Interpretation and review of laboratory results Abnormal [facility] Potassium [Moles/Vol] 4.1 mmol/L 3.5 - 5.1 mmol/L [facility] Comment on above: Plasma potassium víctor ues may be up to 0.5 mmol/L lower than serum values. Sodium [Moles/Vol] 144 mmol/L 136 - 145 mmol/L [facility] Urea nitrogen [Mass/Vol] 4 mg/dL Low 8 - 21 mg/dL [facility] CBC W Auto Differential pane l (Bld)on 02-04-2024 Basophils (Bld) [#/Vol] 0.1 10*3/uL 0.0 - 0.2 10*3/uL [facility] Basophils/100 WBC (Bld) 1 % 0.0 - 2.0 % [facility] Eosinophils (Bld) [#/Vol] 0.1 10*3/uL 0.0 - 0.5 10*3/uL [facility] Eosinophils/100 WBC (Bld) 0.8 % 0.0 - 6.0 % [facility] [employer] Erythrocyte distribution width (RBC) [Ratio] 13.7 % 11.5 - 15.0 % [facility] Hematocrit (Bld) [Volume fraction] 43.7 % 40.0 - 52.0 % [facility] Hemoglobin (Bld) [Mass/Vol] 14.3 g/dL 13.0 - 18.0 g/dL [facility] Immature granulocytes (Bld) [#/Vol] 0 10*3/uL NINF - 0.1 10*3/uL [facility] Immature granulocytes/100 WBC (Bld) 0.2 % 0.0 - 2.0 % [facility] Interpretation and review of laboratory results Abnormal [facility] Lymphocytes (Bld) [#/Vol] 4.7 10*3/uL High 1.0 - 4.3 10*3/uL [facility] Lymphocytes/100 WBC (Bld) 54.6 % High 15.0 - 45.0 % [facility] MCH (RBC) [Entitic mass] 29.7 pg 26.0 - 34.0 pg [facility] MCHC (RBC) [Mass/Vol] 32.7 % 30.5 - 36.0 % [facility] MCV (RBC) [Entitic vol] 90.9 fL 77.0 - 99.0 fL [facility] [employer] Monocytes (Bld) [#/Vol] 0.6 10*3/uL 0.0 - 0.9 10*3/uL [facility] Monocytes/100 WBC (Bld) 6.4 % 5.0 - 13.0 % [facility] Neutrophils (Bld) [#/Vol] 3.2 10*3/uL 1.8 - 7.5 10*3/uL [facility] Neutrophils/100 WBC (Bld) 37 % Low 38.0 - 82.0 % [facility] Nucleated RBC/100 WBC (Bld) [Ratio] 0 % [facility] [employer] Platelet mean volume (Bld) [Entitic vol] 9.8 fL 9.0 - 12.7 fL [facility] Platelets (Bld) [#/Vol] 377 10*3/uL 140 - 440 10*3/uL [facility] RBC (Bld) [#/Vol] 4.81 10*6/uL 4.40 - 5.9 0 10*6/uL [facility] WBC (Bld) [#/Vol] 8.6 10*3/uL 3.6 - 10.7 10*3/uL [facility] CBC WITH AUTO DIFFERENTIALon 02-04-2024 Basophils (Bld) [#/Vol] 0.1 10*3/uL Normal 0.0-0.2 [facility] Comment on above: Performed By: #### L [id number] ####Watch Assembler: JUDITH MARKHAM ([id number])[facility])[address] [place] [address] Basophils/100 WBC (Bld) 1.0 % Normal 0.0-2.0 [facility] Comment on above: Performed By: #### L [id number] ####Watch Assembler: JUDITH MARKHAM ([id number])[facility])[address] [place] [address] Eosinophils (Bld) [#/Vol] 0.1 10*3/uL Normal 0.0-0.5 [facility] Comment on above: Performed By: #### L [id number] ####Watch Assembler: JUDITH MARKHAM ([id number])[facility])[address] [place] [address] Eosinophils/100 WBC (Bld) 0.8 % Normal 0.0-6.0 [facility] Comment on above: Performed By: #### L [id number] ####Watch Assembler: JUDITH MARKHAM ([id number])[facility])[address] [place] [address] Erythrocyte distribution width (RBC) [Ratio] 13.7 % Normal 11.5-15.0 [facility] Comment on above: Performed By: #### L [id number] ####Watch Assembler: JUDITH MARKHAM ([id number])[facility])[address] [place] [address] Hematocrit (Bld) [Volume fraction] 43.7 % Normal 40.0-52.0 [facility] Comment on above: Performed By: #### L [id number] ####Watch Assembler: JUDITH [id number])[facility])[address] [place] [address] Hemoglobin (Bld) [Mass/Vol] 14.3 g/dL Normal 13.0-18.0 [facility] Comment on above: Performed By: #### L [id number] ####Watch Assembler: JUDITH MARKHAM ([id number])[facility])[address] [place] [address] IMMATURE GRANS % 0.2 % Normal 0.0-2.0 [facility] Comment on above: Performed By: #### L [id number] ####Watch Assembler: JUDITH MARKHAM ([id number])[facility])[address] [place] [address] IMMATURE GRANS ABSOLUTE 0.0 10*3/uL Normal <0.1 [facility] Comment on above: Performed By: #### L [id number] ####Watch Assembler: JUDITH MARKHAM ([id number])[facility])[address] [place] [address] Lymphocytes (Bld) [#/Vol] 4.7 10*3/uL High 1.0-4.3 [facility] Comment on above: Performed By: #### L [id number] ####Watch Assembler: JUDITH MARKHAM ([id number])[facility])[address] [place] [address] Lymphocytes/100 WBC (Bld) 54.6 % High 15.0-45.0 [facility] Comment on above: Performed By: #### L [id number] ####Watch Assembler: JUDITH MARKHAM ([id number])[facility])[address] [place] [address] MCH (RBC) [Entitic mass] 29.7 pg Normal 26.0-34.0 [facility] Comment on above: Performed By: #### L [id number] ####Watch Assembler: JUDITH MARKHAM ([id number])[facility])[address] [place] [address] MCHC 32.7 % Normal 30.5-36.0 [facility] Comment on above: Performed By: #### L [id number] ####Watch Assembler: JUDITH MARKHAM ([id number])[facility])[address] [place] [address] MCV (RBC) [Entitic vol] 90.9 fL Normal 77.0-99.0 [facility] Comment on above: Performed By: #### L [id number] ####Watch Assembler: JUDITH MARKHAM ([id number])[facility])[address] [place] [address] Monocytes (Bld) [#/Vol] 0.6 10*3/uL Normal 0.0-0.9 [facility] Comment on above: Performed By: #### L [id number] ####Watch Assembler: JUDITH MARKHAM ([id number])[facility])[address] [place] [address] Monocytes/100 WBC (Bld) 6.4 % Normal 5.0-13.0 [facility] Comment on above: Performed By: #### L [id number] ####Watch Assembler: JUDITH MARKHAM ([id number])[facility])[address] [place] [address] NEUTROPHILS ABSOLUTE 3.2 10*3/uL Normal 1.8-7.5 [facility] Comment on above: Performed By: #### L [id number] ####Watch Assembler: JUDITH MARKHAM ([id number])[facility])[address] [place] [address] Neutrophils/100 WBC (Bld) 37.0 % Low 38.0-82.0 [facility] Comment on above: Performed By: #### L [id number] ####Watch Assembler: JUDITH MARKHAM ([id number])[facility])[address] [place] [address] NRBC 0.0 /100 WBCs Normal 0.0-2.0 [facility] Comment on above: Performed By: #### L [id number] ####Watch Assembler: JUDITH MARKHAM ([id number])[facility] ([facility])[address] [place] [address] Platelet mean volume (Bld) [Entitic vol] 9.8 fL Normal 9.0-12.7 [facility] Comment on above: Performed By: #### L [id number] ####Watch Assembler: JUDITH MARKHAM ([id number])[facility] ([facility])[address] [place] [address] Platelets (Bld) [#/Vol] 377 10*3/uL Normal 140-440 [facility] Comment on above: Performed By: #### L [id number] ####Watch Assembler: JUDITH MARKHAM ([id number])[facility] ([facility])[address] [place] [address] RBC (Bld) [#/Vol] 4.81 10*6/uL Normal 4.40-5.90 [facility] Comment on above: Performed By: #### L [id number] ####Watch Assembler: JUDITH MARKHAM ([id number])[facility] ([facility])[address] [place] [address] WBC (Bld) [#/Vol] 8.6 10*3/uL Normal 3.6-10.7 [facility] Comment on above: Performed By: #### L [id number] ####Watch Assembler: JUDITH MARKHAM ([id number])[facility] ([facility])[address] [place] [address] COMPREHENSIVE METABOLIC PANE Rylan 02-04-2024 Albumin [Mass/Vol] 4.1 g/dL Normal 3.5-5.0 [facility] Comment on above: Performed By: #### L AB17, LAB46 ####Watch Assembler: JUDITH MARKHAM ([id number])[facility])[address] [place] [address] ALP [Catalytic activity/Vol] 192 U/L High 40-150 [facility] Comment on above: Performed By: #### L AB17, LAB46 ####Watch Assembler: JUDITH MARKHAM ([id number])[facility] [place] [address] [place] ALT [Catalytic activity/Vol] 189 U/L High <40 [facility] Comment on above: Performed By: #### L AB17, LAB46 ####Watch Assembler: JUDITH MARKHAM ([id number])[facility] [place] [address] [place] Anion gap [Moles/Vol] 15 mmol/L High 3-13 [facility] Comment on above: Performed By: #### L AB17, LAB46 ####Watch Assembler: JUDITH MARKHAM ([id number])[facility] ([facility])[address] [place] [address] AST [Catalytic activity/Vol] 463 U/L High <34 [facility] Comment on above: Performed By: #### L AB17, LAB46 ####Watch Assembler: JUDITH MARKHAM ([id number])[facility] ([facility])[address] [place] [address] [place] Bilirubin [Mass/Vol] 0.5 mg/dL Normal <1.2 [facility] Comment on above: Performed By: #### L AB17, LAB46 ####Watch Assembler: JUDITH MARKHAM ([id number])[facility] ([facility])[address] [place] [address] Calcium [Mass/Vol] 8.9 mg/dL Normal 8.4-10.2 [facility] Comment on above: Performed By: #### L AB17, LAB46 ####Watch Assembler: JUDITH MARKHAM ([id number])[facility] ([facility])[address] [place] [address] [place] Chloride [Moles/Vol] 106 mmol/L Normal 98-107 [facility] Comment on above: Performed By: #### L AB17, LAB46 ####Watch Assembler: JUDITH MARKHAM ([id number])[facility] ([facility])[address] [place] [address] [place] CO2 [Moles/Vol] 20 mmol/L Low 22-29 [facility] Comment on above: Performed By: #### L AB17, LAB46 ####Watch Assembler: JUDITH MRAKHAM ([id number])[facility])[address] [place] [address] Creatinine [Mass/Vol] 0.74 mg/dL Normal 0.72-1.25 [facility] Comment on above: Performed By: #### Iggy AB17, LAB46 ####Watch Assembler: JUDITH MARKHAM ([phone])[facility])[address] [place] [address] GLOMERULAR FILTRATION RATE ML/MIN/1.73 SQ M.PREDICTED >90.0 Normal >60.0 [facility] Comment on above: Result Comment: Calc ulation based on the Chronic Kidney Disease Epidemiology Collaboration (CKD-EPI) equation refit without adjustment for race Performed By: #### Iggy JOHNSON17, LAB46 ####Watch Assembler: JUDITH MARKHAM ([id number])[facility])[address] [place] [address] Glucose [Mass/Vol] 211 mg/dL High 74-100 [facility] Comment on above: Performed By: #### Iggy JOHNSON17, LAB46 ####Watch Assembler: JUDITH MARKHAM ([id number])[address] Potassium [Moles/Vol] 2.9 mmol/L Low 3.5-5.1 [facility] Comment on above: Result Comment: [facility] potassium values may be up to 0.5 mmol/L lower than serum values. Performed By: #### L AB17, LAB46 ####Watch Assembler: JUDITH MARKHAM ([id number])[facility])[address] [place] [address] Protein [Mass/Vol] 7.9 g/dL Normal 6.4-8.3 [facility] Comment on above: Performed By: #### L AB17, LAB46 ####Watch Assembler: JUDITH MARKHAM ([id number])[facility] ([facility])[address] [place] [address] Sodium [Moles/Vol] 141 mmol/L Normal 136-145 [facility] Comment on above: Performed By: #### L AB17, LAB46 ####Watch Assembler: JUDITH MARKHAM ([id number])[facility] ([facility])[address] [place] [address] Urea nitrogen [Mass/Vol] 4 mg/dL Low 8-21 [facility] Comment on above: Performed By: #### L AB17, LAB46 ####Watch Assembler: JUDITH MARKHAM ([id number])[facility] ([facility])[address] [place] [address] Comprehensive metabolic 1998 panelon 02-04-2024 Albumin [Mass/Vol] 4.1 g/dL 3.5 - 5.0 g/dL [facility] ALP [Catalytic activity/Vol] 192 U/L High 40 - 150 U/L [facility] ALT [Catalytic activity/Vol] 189 U/L High NINF - 40 U/L [facility] Anion gap [Moles/Vol] 15 mmol/L High 3 - 13 mmol/L [facility] AST [Catalytic activity/Vol] 463 U/L High [facility] U/L [facility] Bilirubin [Mass/Vol] 0.5 mg/dL [facility] - 1.2 mg/dL [facility] Calcium [Mass/Vol] 8.9 mg/dL 8.4 - 10. 2 mg/dL [facility] Chloride [Moles/Vol] 106 mmol/L 98 - 10 7 mmol/L [facility] CO2 [Moles/Vol] 20 mmol/L Low 22 - 29 mmol/L [facility] Creatinine [Mass/Vol] 0.74 mg/dL 0.72 - 1.25 mg/dL [facility] GFR/1.73 sq M.predicted (S/P/Bld) [Vol rate/Area] - PINF [facility] Comment on above: Calculation based on the Chronic Kidney Disease Epidemiology Collaboration (CKD-EPI) equation refit without adjustment for race Glucose [Mass/Vol] 211 mg/dL High 74 - 100 mg/dL [facility] Interpretation and review of laboratory results Abnormal [facility] Potassium [Moles/Vol] 2.9 mmol/L Low 3.5 - 5.1 mmol/L [facility] Comment on above: Plasma potassium víctor ues may be up to 0.5 mmol/L lower than serum values. Protein [Mass/Vol] 7.9 g/dL 6.4 - 8.3 g/dL [facility] Sodium [Moles/Vol] 141 mmol/L 136 - 145 mmol/L [facility] Urea nitrogen [Mass/Vol] 4 mg/dL Low 8 - 21 mg/dL [facility] DRUGS OF ABUSEon 02-04-2024 AMPHETAMINE SCREEN Negative Normal [facility] Comment on above: Performed By: #### L [id number] ####Watch Assembler: JUDITH MARKHAM ([id number])[address] BARBITURATES SCREEN Negative Normal [facility] Comment on above: Performed By: #### L [id number] ####Watch Assembler: JUDITH MARKHAM ([id number])[address] BENZODIAZEPINE SCREEN Negative [facility] Comment on above: Performed By: #### L [id number] ####Watch Assembler: JUDITH MARKHAM ([id number])[address] COCAINE METAB. SCREEN Positive Normal [facility] Comment on above: Performed By: #### L [id number] ####Watch Assembler: JUDITH MARKHAM ([id number])[address] FENTANYL SCREEN, UR QUAL Negative Normal [facility] Comment on above: Result Comment: [...] under separate order. Performed By: #### L [id number] ####Watch Assembler: JUDITH MARKHAM ([id number])[facility])[address] [place] [address] METHADONE SCREEN Negative Normal [facility] Comment on above: Performed By: #### L [id number] ####Watch Assembler: JUDITH MARKHAM ([id number])[address] OPIATES SCREEN Negative Normal [facility] Comment on above: Performed By: #### L [id number] ####Watch Assembler: JUDITH MARKHAM ([id number])[address] OXYCODONE SCREEN Negative Normal [facility] Comment on above: Performed By: #### L [id number] ####Watch Assembler: JUDITH MARKHAM ([id number])[address] PHENCYCLIDINE SCREEN Negative Normal [facility] Comment on above: Performed By: #### L [id number] ####Watch Assembler: JUDITH MARKHAM ([id number])[address] ED Nursing Noteon 02-04-2024 ED Nursing Note Etoh detox admit. Responds to verbal. A/ox4. Report received from lunch covered nurse. Vss and updated. Oriented to call hooper. No distress. [facility] ED Nursing Note Report given to frederick canales RN [facility] ED Nursing Note Pt given warm blanket Normal [facility] ED Nursing Note Provider messaged on pt behalf requesting something for detox [facility] ED Nursing Note Pt able to give urin e sample in urinal at this time [facility] ED Nursing Note Pt refusing urinal. Deion santillan came into room to assist this RN with urine sample. Pt stating he can't urinate at this time. Normal [facility] ED Nursing Note Normal [facility] ED Provider Noteon ED Provider Note Normal [facility] ETHANOLon 02-04-2024 ETHANOL IN SER/PLAS 193 mg/dL High <10 [facility] Comment on above: Result Comment: ORDE R COMMENTS:PALLIATIVE CARE NURSE PRACTITIONER depression is seen >100 mg/dL.NOTE: This result is for medical treatment only. Analysis performed using non-forensic procedures. Performed By: #### L AB46, LAB15 ####Watch Assembler: JUDITH MARKHAM ([id number])[address] ETHANOL IN SER/PLAS 422 mg/dL Critically high <10 [facility] Comment on above: Result Comment: ORDE R COMMENTS:PALLIATIVE CARE NURSE PRACTITIONER depression is seen >100 mg/dL.NOTE: This result is for medical treatment only. Analysis performed using non-forensic procedures. Performed By: #### L AB17, LAB46 ####Watch Assembler: JUDITH MARKHAM ([id number])[facility] ([facility])[address] [place] [address] Ethanol (Bld) [Mass/Vol]on 1 04-06-2023 Ethanol [Mass/Vol] 193 mg/dL High NINF - 10 mg/dL [facility] Interpretation and review of laboratory results Abnormal [facility] PALLIATIVE CARE NURSE PRACTITIONER depression is se en >100 mg/dL. NOTE: This result is for medical treatment only. Analysis performed using non-forensic procedures. [facility] Ethanol (Bld) [Mass/Vol]Orde red By: Manuel Dawson on 02-04-2024 Ethanol [Mass/Vol] 422 mg/dL Critically high NINF - 10 mg/dL [facility] Interpretation and review of laboratory results Abnormal [facility] PALLIATIVE CARE NURSE PRACTITIONER depression is se en >100 mg/dL. NOTE: This result is for medical treatment only. Analysis performed using non-forensic procedures. [facility] Laboratory - Chemistry and C hemistry - challengeon 02-04-2024 Base excess Calc (BldV) [Moles/Vol] -1.9000 mmol/L -3.0 - 3.0 mmol/L [facility] CO2 (BldV) [Partial pressure] 39.7 mm[Hg] Low [facility] CO2 [Moles/Vol] 24.2 mmol/L 24.0 - 28.0 mmol/L [facility] HCO3 (Bld) [Moles/Vol] 23 mmol/L 23.0 - 27.0 mmol/L [facility] Oxygen (BldV) [Partial pressure] 50.3 mm[Hg] mm Hg [facility] pH (BldV) 7.38 [pH] 7.330 - 7.430 [facility] Laboratory - Chemistry and C hemistry - challengeOrdered By: Maddie Verdin on 02-04-2024 Base excess Calc (BldV) [Moles/Vol] -12 mmol/L Low -3.0 - 3.0 mmol/L [facility] CO2 (BldV) [Partial pressure] 42.7 mm[Hg] [facility] CO2 [Moles/Vol] 17.1 mmol/L Low 24.0 - 28.0 mmol/L [facility] HCO3 (Bld) [Moles/Vol] 15.8 mmol/L Low 23.0 - 27.0 mmol/L [facility] Oxygen (BldV) [Partial pressure] 131.7 mm[Hg] mm Hg [facility] pH (BldV) 7.185 [pH] Low 7.330 - 7.430 [facility] Laboratory - Drug toxicology on 02-04-2024 Amphetamines Screen method >1000 ng/mL Ql (U) Negative [facility] Barbiturates Screen method >200 ng/mL Ql (U) Negative [facility] Benzodiazepines Ql (U) Negative [facility] Methadone Screen Ql (U) Negative [facility] Opiates Screen Ql (U) Negative [facility] oxyCODONE Ql (U) Negative [facility] Phencyclidine Ql (U) Negative [facility] Laboratory - Hematology and Cell countson 02-04-2024 Hemoglobin (Bld) [Mass/Vol] 15 g/dL Screen only [facility] Laboratory - Hematology and Cell countsOrdered By: Maddie Verdin on 02-04-2024 Hemoglobin (Bld) [Mass/Vol] 13.5 g/dL Screen only [facility] Laboratory - Microbiology an d Antimicrobial susceptibilityOrdered By: Hermelinda Shukla on 02-04-2024 SARS-CoV-2 (COVID-19) Ag IA.rapid Ql (Resp) Negative Negative [facility] Comment on above: A negative result do es not rule out the possibility of SARS-CoV-2 infection. NAAT-based methods should be considered for symptomatic patients presenting greater than seven days after onset of symptoms. Method: Lateral flow immunoassay. Fact sheets for healthcare providers and patients can be found at the following sites: https://www.fda.gov/media/659037/download https://www.fda.gov/media/870605/download No Panel Informationon 02-03 Interpretation and review of laboratory results Abnormal [facility] Source Of Oxygen Room Air [facility] Assessment of oxygenation is best done with an arterial blood gas determination. Reference ranges for pO2, bicarbonate, and base excess are for mixed venous blood. Specimens drawn from a peripheral vein will often have higher values. [facility] COCAINE METAB. SCREEN Positive [facility] FENTANYL SCREEN, UR QUAL Negative [facility] The expected value f or all of [...] is needed, request confirmation under separate order. [facility] No Panel InformationOrdered By: Maddie Verdin on 02-04-2024 Interpretation and review of laboratory results Abnormal [facility] Source Of Oxygen Room Air [facility] Assessment of oxygenation is best done with an arterial blood gas determination. Reference ranges for pO2, bicarbonate, and base excess are for mixed venous blood. Specimens drawn from a peripheral vein will often have higher values. [facility] SARS-COV-2 ANTIGENon 024 SARS-COV-2 ANTIGEN Normal [facility] Comment on above: Performed By: #### L [id number] ####Watch Assembler: JUDITH MARKHAM ([id number])[facility])[address] [place] [address] SARS-CoV-2 (COVID-19) Ag IA. rapid Ql (Resp)Ordered By: Hermelinda Shukla on 02-04-2024 Interpretation and review of laboratory results Normal [facility] Vital signson 02-04-2024 Oxygen saturation in Venous blood 76.9 % [facility] Vital signsOrdered By: Noe Verdin on 02-04-2024 Oxygen saturation in Venous blood 97.4 % [facility] 36on 01-29-2024 36 Called for post discharge follow up, no answer, voicemail left. Normal [facility] 30on 01-26-2024 30 Normal [facility] BASIC METABOLIC PANELon 01-09 Anion gap [Moles/Vol] 7 mmol/L Normal 3-13 [facility] Comment on above: Performed By: #### L AB20, LAB15 ####Watch Assembler: JUDITH MARKHAM ([phone])[facility] ([facility])[address] [place] [address] Calcium [Mass/Vol] 9.4 mg/dL Normal 8.4-10.2 [facility] Comment on above: Performed By: #### L AB20, LAB15 ####Watch Assembler: JUDITH MARKHAM ([id number])[facility] ([facility])[address] [place] [address] [place] Chloride [Moles/Vol] 106 mmol/L Normal 98-107 [facility] Comment on above: Performed By: #### L AB20, LAB15 ####Watch Assembler: JUDITH MARKHAM ([phone])[facility])[address] [place] [address] [place] CO2 [Moles/Vol] 25 mmol/L Normal 22-29 [facility] Comment on above: Performed By: #### L AB20, LAB15 ####Watch Assembler: JUDITH MARKHAM ([id number])[facility])[address] [place] [address] Creatinine [Mass/Vol] 0.64 mg/dL Low 0.72-1.25 [facility] Comment on above: Performed By: #### L AB20, LAB15 ####Watch Assembler: JUDITH MARKHAM ([id number])[facility])[address] [place] [address] GLOMERULAR FILTRATION RATE ML/MIN/1.73 SQ M.PREDICTED >90.0 Normal >60.0 [facility] Comment on above: Result Comment: Calc ulation based on the Chronic Kidney Disease Epidemiology Collaboration (CKD-EPI) equation refit without adjustment for race Performed By: #### L AB20, LAB15 ####Watch Assembler: JUDITH MARKHAM ([id number])[facility])[address] [place] [address] Glucose [Mass/Vol] 98 mg/dL Normal 74-100 [facility] Comment on above: Performed By: #### L AB20, LAB15 ####Watch Assembler: JUDITH MARKHAM ([id number])[facility])[address] [place] [address] Potassium [Moles/Vol] 3.7 mmol/L Normal 3.5-5.1 [facility] Comment on above: Result Comment: [facility] potassium values may be up to 0.5 mmol/L lower than serum values. Performed By: #### L AB20, LAB15 ####Watch Assembler: JUDITH MARKHAM ([id number])[facility] ([facility])[address] [place] [address] [place] Sodium [Moles/Vol] 138 mmol/L Normal 136-145 [facility] Comment on above: Performed By: #### L AB20, LAB15 ####Watch Assembler: JUDITH MARKHAM ([id number])[facility])[address] [place] [address] [place] Urea nitrogen [Mass/Vol] 3 mg/dL Low 8-21 [facility] Comment on above: Performed By: #### L AB20, LAB15 ####Watch Assembler: JUDITH MARKHAM ([id number])[facility])[address] [place] [address] Basic metabolic 1998 panelon 01-26-2024 Anion gap [Moles/Vol] 7 mmol/L 3 - 13 mmol/L [facility] Calcium [Mass/Vol] 9.4 mg/dL 8.4 - 10. 2 mg/dL [facility] Chloride [Moles/Vol] 106 mmol/L 98 - 10 7 mmol/L [facility] CO2 [Moles/Vol] 25 mmol/L 22 - 29 mmol/L [facility] Creatinine [Mass/Vol] 0.64 mg/dL Low 0.72 - 1.25 mg/dL [facility] GFR/1.73 sq M.predicted (S/P/Bld) [Vol rate/Area] - PINF [facility] Comment on above: Calculation based on the Chronic Kidney Disease Epidemiology Collaboration (CKD-EPI) equation refit without adjustment for race Glucose [Mass/Vol] 98 mg/dL 74 - 100 mg/dL [facility] Potassium [Moles/Vol] 3.7 mmol/L 3.5 - 5.1 mmol/L [facility] Comment on above: Plasma potassium víctor ues may be up to 0.5 mmol/L lower than serum values. Sodium [Moles/Vol] 138 mmol/L 136 - 145 mmol/L [facility] Urea nitrogen [Mass/Vol] 3 mg/dL Low 8 - 21 mg/dL [facility] HEPATIC FUNCTION PANELon Albumin [Mass/Vol] 3.6 g/dL Normal 3.5-5.0 [facility] Comment on above: Performed By: #### L AB20, LAB15 ####Watch Assembler: JUDITH MARKHAM ([id number])[facility] ([facility])[address] [place] [address] ALP [Catalytic activity/Vol] 129 U/L Normal 40-150 [facility] Comment on above: Performed By: #### L AB20, LAB15 ####Watch Assembler: JUDITH MARHKAM ([id number])[facility])[address] [place] [address] ALT [Catalytic activity/Vol] 70 U/L High <40 [facility] Comment on above: Performed By: #### L AB20, LAB15 ####Watch Assembler: JUDITH MARKHAM ([phone])[facility])[address] [place] [address] AST [Catalytic activity/Vol] 94 U/L High <34 [facility] Comment on above: Performed By: #### L AB20, LAB15 ####Watch Assembler: JUDITH MARKHAM ([id number])[facility])[address] [place] [address] Bilirubin [Mass/Vol] 1.0 mg/dL Normal <1.2 [facility] Comment on above: Performed By: #### L AB20, LAB15 ####Watch Assembler: JUDITH MARKHAM ([id number])[address] Bilirubin.indirect [Mass/Vol] 0.6 mg/dL High <0.5 [facility] Comment on above: Performed By: #### L AB20, LAB15 ####Watch Assembler: JUDITH MARKHAM ([id number])[facility])[address] [place] [address] Protein [Mass/Vol] 7.0 g/dL Normal 6.4-8.3 [facility] Comment on above: Result Comment: Seru m protein values are higher than plasma values. Samples from recumbent persons are lower by up to 0.5 g/dL as compared to ambulatory persons. After 60 years values are lower by up to 0.2 g/dL. Performed By: #### L AB20, LAB15 ####Watch Assembler: JUDITH MARKHAM ([id number])[facility])[address] [place] [address] Hepatic function 2000 panelo n 01-26-2024 Albumin [Mass/Vol] 3.6 g/dL 3.5 - 5.0 g/dL [facility] ALP [Catalytic activity/Vol] 129 U/L 40 - 150 U/L [facility] ALT [Catalytic activity/Vol] 70 U/L High NINF - 40 U/L [facility] AST [Catalytic activity/Vol] 94 U/L High NINF - 34 U/L [facility] Bilirubin [Mass/Vol] 1 mg/dL [facility] - 1.2 mg/dL [facility] Bilirubin.conjugated [Mass/Vol] 0.6 mg/dL High NINF - 0.5 mg/dL [facility] Protein [Mass/Vol] 7 g/dL 6.4 - 8.3 g/dL [facility] Comment on above: Serum protein values are higher than plasma values. Samples from recumbent persons are lower by up to 0.5 g/dL as compared to ambulatory persons. After 60 years values are lower by up to 0.2 g/dL. No Panel Informationon 01-25 Interpretation and review of laboratory results Abnormal [facility] Nursing Noteon 01-26-2024 Nursing Note Patient verbalized understanding of all discharge instructions including medications, follow up appointments, s&s of infection, and when to call the physician. Normal [facility] Progress Noteon 01-26-2024 Progress Note Normal [facility] 30on 01-25-2024 30 Normal [facility] Progress Noteon 01-25-2024 Progress Note Normal [facility] 30on 01-24-2024 30 Normal [facility] 30 Normal [facility] Progress Noteon 01-24-2024 Progress Note Normal [facility] 30on 01-23-2024 30 Normal [facility] Progress Noteon 01-23-2024 Progress Note Normal [facility] 30on 01-22-2024 30 Normal [facility] 30 Normal [facility] [id number] 01-22-2024 [id number] Normal [facility] Nursing Noteon 01-22-2024 Nursing Note Normal [facility] Progress Noteon 01-22-2024 Progress Note Normal [facility] Progress Note Nutrition rescreen completed. Chart reviewed. Patient to be monitored and followed by the diet it service technician. Dietitian available upon request. RALPH Chun Normal [facility] Progress Note Normal [facility] 30on 01-21-2024 30 Normal [facility] 30 Normal [facility] BASIC METABOLIC PANELon 01-09 Anion gap [Moles/Vol] 11 mmol/L Normal -13 [facility] Comment on above: Performed By: #### L AB20, LAB46, LAB15 ####Watch Assembler: JUDITH MARKHAM ([phone])[facility])[address] [place] [address] Calcium [Mass/Vol] 9.0 mg/dL Normal 8.4-10.2 [facility] Comment on above: Performed By: #### L AB20, LAB46, LAB15 ####Watch Assembler: JUDITH MARKHAM ([id number])[facility] ([facility])[address] [place] [address] Chloride [Moles/Vol] 106 mmol/L Normal 98-107 [facility] Comment on above: Performed By: #### L AB20, LAB46, LAB15 ####Watch Assembler: JUDITH MARKHAM ([id number])[facility])[address] [place] [address] CO2 [Moles/Vol] 23 mmol/L Normal 22-29 [facility] Comment on above: Performed By: #### L AB20, LAB46, LAB15 ####Watch Assembler: JUDITH MARKHAM ([phone])[facility])[address] [place] [address] Creatinine [Mass/Vol] 0.74 mg/dL Normal 0.72-1.25 [facility] Comment on above: Performed By: #### L AB20, LAB46, LAB15 ####Watch Assembler: JUDITH MARKHAM ([id number])[facility])[address] [place] [address] GLOMERULAR FILTRATION RATE ML/MIN/1.73 SQ M.PREDICTED >90.0 Normal >60.0 [facility] Comment on above: Result Comment: Calc ulation based on the Chronic Kidney Disease Epidemiology Collaboration (CKD-EPI) equation refit without adjustment for race Performed By: #### L AB20, LAB46, LAB15 ####Watch Assembler: JUDITH MARKHAM ([phone])[facility])[address] [place] [address] Glucose [Mass/Vol] 115 mg/dL High 74-100 [facility] Comment on above: Performed By: #### L AB20, LAB46, LAB15 ####Watch Assembler: JUDITH MARKHAM ([phone])[facility])[address] [place] [address] Potassium [Moles/Vol] 3.8 mmol/L Normal 3.5-5.1 [facility] Comment on above: Result Comment: [facility] potassium values may be up to 0.5 mmol/L lower than serum values. Performed By: #### L AB20, LAB46, LAB15 ####Watch Assembler: JUDITH MARKHAM ([id number])[facility] ([facility])[address] [place] [address] Sodium [Moles/Vol] 140 mmol/L Normal 136-145 [facility] Comment on above: Performed By: #### L AB20, LAB46, LAB15 ####Watch Assembler: JUDITH MARKHAM ([id number])[facility] ([facility])[address] [place] [address] Urea nitrogen [Mass/Vol] 4 mg/dL Low 8-21 [facility] Comment on above: Performed By: #### L AB20, LAB46, LAB15 ####Watch Assembler: JUDITH MARKHAM ([id number])[address] Basic metabolic 1998 panelon 01-21-2024 Anion gap [Moles/Vol] 11 mmol/L 3 - 13 mmol/L [facility] Calcium [Mass/Vol] 9 mg/dL 8.4 - 10. 2 mg/dL [facility] Chloride [Moles/Vol] 106 mmol/L 98 - 10 7 mmol/L [facility] CO2 [Moles/Vol] 23 mmol/L 22 - 29 mmol/L [facility] Creatinine [Mass/Vol] 0.74 mg/dL 0.72 - 1.25 mg/dL [facility] GFR/1.73 sq M.predicted (S/P/Bld) [Vol rate/Area] - PINF [facility] Comment on above: Calculation based on the Chronic Kidney Disease Epidemiology Collaboration (CKD-EPI) equation refit without adjustment for race Glucose [Mass/Vol] 115 mg/dL High 74 - 100 mg/dL [facility] Potassium [Moles/Vol] 3.8 mmol/L 3.5 - 5.1 mmol/L [facility] Comment on above: Plasma potassium víctor ues may be up to 0.5 mmol/L lower than serum values. Sodium [Moles/Vol] 140 mmol/L 136 - 145 mmol/L [facility] Urea nitrogen [Mass/Vol] 4 mg/dL Low 8 - 21 mg/dL [facility] CBC W Auto Differential pane l (Bld)on 01-21-2024 Basophils (Bld) [#/Vol] 0.1 10*3/uL 0.0 - 0.2 10*3/uL [facility] [employer] Basophils/100 WBC (Bld) 0.5 % 0.0 - 2.0 % [facility] Eosinophils (Bld) [#/Vol] 0 10*3/uL 0.0 - 0.5 10*3/uL [facility] [employer] Eosinophils/100 WBC (Bld) 0.1 % 0.0 - 6.0 % [facility] [employer] Erythrocyte distribution width (RBC) [Ratio] 13.8 % 11.5 - 15.0 % [facility] Hematocrit (Bld) [Volume fraction] 44.1 % 40.0 - 52.0 % [facility] Hemoglobin (Bld) [Mass/Vol] 14.5 g/dL 13.0 - 18.0 g/dL [facility] Immature granulocytes (Bld) [#/Vol] 0 10*3/uL NINF - 0.1 10*3/uL [facility] [employer] Immature granulocytes/100 WBC (Bld) 0.1 % 0.0 - 2.0 % [facility] Interpretation and review of laboratory results Normal [facility] Lymphocytes (Bld) [#/Vol] 2.7 10*3/uL 1.0 - 4.3 10*3/uL [facility] [employer] Lymphocytes/100 WBC (Bld) 29.4 % 15.0 - 45.0 % [facility] MCH (RBC) [Entitic mass] 30 pg 26.0 - 34.0 pg [facility] MCHC (RBC) [Mass/Vol] 32.9 % 30.5 - 36.0 % [facility] MCV (RBC) [Entitic vol] 91.1 fL 77.0 - 99.0 fL [facility] Monocytes (Bld) [#/Vol] 0.6 10*3/uL 0.0 - 0.9 10*3/uL [facility] Monocytes/100 WBC (Bld) 6 % 5.0 - 13.0 % [facility] Neutrophils (Bld) [#/Vol] 5.9 10*3/uL 1.8 - 7.5 10*3/uL [facility] Neutrophils/100 WBC (Bld) 63.9 % 38.0 - 82.0 % [facility] Nucleated RBC/100 WBC (Bld) [Ratio] 0 % [facility] Platelet mean volume (Bld) [Entitic vol] 10 fL 9.0 - 12.7 fL [facility] Platelets (Bld) [#/Vol] 249 10*3/uL 140 - 440 10*3/uL [facility] RBC (Bld) [#/Vol] 4.84 10*6/uL 4.40 - 5.9 0 10*6/uL [facility] WBC (Bld) [#/Vol] 9.3 10*3/uL 3.6 - 10.7 10*3/uL [facility] CBC WITH AUTO DIFFERENTIALon 01-21-2024 Basophils (Bld) [#/Vol] 0.1 10*3/uL Normal 0.0-0.2 [facility] Comment on above: Performed By: #### L [id number] ####Watch Assembler: JUDITH MARKHAM ([id number])[address] Basophils/100 WBC (Bld) 0.5 % Normal 0.0-2.0 [facility] Comment on above: Performed By: #### L [id number] ####Watch Assembler: JUDITH [id number])[facility] ([facility])[address] [place] [address] Eosinophils (Bld) [#/Vol] 0.0 10*3/uL Normal 0.0-0.5 [facility] Comment on above: Performed By: #### L [id number] ####Watch Assembler: JUDITH [id number])[facility] [address] Eosinophils/100 WBC (Bld) 0.1 % Normal 0.0-6.0 [facility] Comment on above: Performed By: #### L [id number] ####Watch Assembler: JUDITH MARKHAM ([id number])[facility])[address] [place] [address] Erythrocyte distribution width (RBC) [Ratio] 13.8 % Normal 11.5-15.0 [facility] Comment on above: Performed By: #### L [id number] ####Watch Assembler: JUDITH MARKHAM ([id number])[address] Hematocrit (Bld) [Volume fraction] 44.1 % Normal 40.0-52.0 [facility] Comment on above: Performed By: #### L [id number] ####Watch Assembler: JUDITH MARKHAM ([id number])[address] Hemoglobin (Bld) [Mass/Vol] 14.5 g/dL Normal 13.0-18.0 [facility] Comment on above: Performed By: #### L [id number] ####Watch Assembler: JUDITH MARKHAM ([id number])[address] IMMATURE GRANS % 0.1 % Normal 0.0-2.0 [facility] Comment on above: Performed By: #### L [id number] ####Watch Assembler: JUDITH MARKHAM ([id number])[facility])[address] [place] [address] IMMATURE GRANS ABSOLUTE 0.0 10*3/uL Normal <0.1 [facility] Comment on above: Performed By: #### L [id number] ####Watch Assembler: JUDITH MARKHAM ([id number])[facility])[address] [place] [address] Lymphocytes (Bld) [#/Vol] 2.7 10*3/uL Normal 1.0-4.3 [facility] Comment on above: Performed By: #### L [id number] ####Watch Assembler: JUDITH MARKHAM ([id number])[facility])[address] [place] [address] Lymphocytes/100 WBC (Bld) 29.4 % Normal 15.0-45.0 [facility] Comment on above: Performed By: #### L [id number] ####Watch Assembler: JUDITH MARKHAM ([id number])[facility])[address] [place] [address] MCH (RBC) [Entitic mass] 30.0 pg Normal 26.0-34.0 [facility] Comment on above: Performed By: #### L [id number] ####Watch Assembler: JUDITH MARKHAM ([id number])[facility])[address] [place] [address] MCHC 32.9 % Normal 30.5-36.0 [facility] Comment on above: Performed By: #### L [id number] ####Watch Assembler: JUDITH MARKHAM ([id number])[facility])[address] [place] [address] MCV (RBC) [Entitic vol] 91.1 fL Normal 77.0-99.0 [facility] Comment on above: Performed By: #### L [id number] ####Watch Assembler: JUDITH MARKHAM ([id number])[facility])[address] [place] [address] Monocytes (Bld) [#/Vol] 0.6 10*3/uL Normal 0.0-0.9 [facility] Comment on above: Performed By: #### L [id number] ####Watch Assembler: JUDITH MARKHAM ([id number])[facility])[address] [place] [address] Monocytes/100 WBC (Bld) 6.0 % Normal 5.0-13.0 [facility] Comment on above: Performed By: #### L [id number] ####Watch Assembler: JUDITH MARKHAM ([id number])[facility] ([facility])[address] [place] [address] NEUTROPHILS ABSOLUTE 5.9 10*3/uL Normal 1.8-7.5 [facility] Comment on above: Performed By: #### L [id number] ####Watch Assembler: JUDITH MARKHAM ([id number])[facility] ([facility])[address] [place] [address] Neutrophils/100 WBC (Bld) 63.9 % Normal 38.0-82.0 [facility] Comment on above: Performed By: #### L [id number] ####Watch Assembler: JUDITH MARKHAM ([id number])[facility] ([facility])[address] [place] [address] NRBC 0.0 /100 WBCs Normal 0.0-2.0 [facility] Comment on above: Performed By: #### L [id number] ####Watch Assembler: JUDITH MARKHAM ([id number])[facility] ([facility])[address] [place] [address] Platelet mean volume (Bld) [Entitic vol] 10.0 fL Normal 9.0-12.7 [facility] Comment on above: Performed By: #### L [id number] ####Watch Assembler: JUDITH MARKHAM ([id number])[facility] ([facility])[address] [place] [address] [place] Platelets (Bld) [#/Vol] 249 10*3/uL Normal 140-440 [facility] Comment on above: Performed By: #### L [id number] ####Watch Assembler: JUDITH MARKHAM ([id number])[facility] ([facility])[address] [place] [address] [place] RBC (Bld) [#/Vol] 4.84 10*6/uL Normal 4.40-5.90 [facility] Comment on above: Performed By: #### L [id number] ####Watch Assembler: JUDITH MARKHAM ([id number])[facility] ([facility])[address] WBC (Bld) [#/Vol] 9.3 10*3/uL Normal 3.6-10.7 [facility] Comment on above: Performed By: #### L [id number] ####Watch Assembler: JUDITH MARKHAM ([id number])[facility] ([facility])[address] [place] [address] Consulton 01-21-2024 Consult Normal [facility] ETHANOLon 01-21-2024 ETHANOL IN SER/PLAS <10 Normal <10 [facility] Comment on above: Result Comment: This sample may have been collected by using an alcohol pad to swab the skin. Ethanol-containing antiseptics before venipuncture may not be causes of spurious or false positive results of alcohol measurement at least when ideal venipunctures can be performed. However, under non-ideal collection conditions, alcohol contamination is a possibility. Results to be correlated clinically.ORDER COMMENTS:PALLIATIVE CARE NURSE PRACTITIONER depression is seen >100 mg/dL.NOTE: This result is for medical treatment only. Analysis performed using non-forensic procedures. Performed By: #### L AB20, LAB46, LAB15 ####Watch Assembler: JUDITH MARKHAM ([id number])[facility] ([facility])[address] [place] [address] ETHYL GLUCURONIDE SCREEN, UR INEon 01-21-2024 ETHYL GLUCURONIDE, URINE Positive Normal Negative [facility] Comment on above: Result Comment: ORDE R [...] been determined by the clinical laboratories of [facility]. Performed By: #### L [id number], [id number] ####Watch Assembler: JUDITH MARKHAM ([id number])[facility] [place] [address] Ethanol (Bld) [Mass/Vol]on 1 03-23-2023 Ethanol [Mass/Vol] mg/dL NINF - 10 mg/dL [facility] Comment on above: This sample may have [...] Interpretation and review of laboratory results Normal [facility] PALLIATIVE CARE NURSE PRACTITIONER depression is se en >100 mg/dL. NOTE: This result is for medical treatment only. Analysis performed using non-forensic procedures. [facility] HEPATIC FUNCTION PANELon Albumin [Mass/Vol] 4.0 g/dL Normal 3.5-5.0 [facility] Comment on above: Performed By: #### L AB20, LAB46, LAB15 ####Watch Assembler: JUDITH MARKHAM ([id number])[facility])[address] [place] [address] ALP [Catalytic activity/Vol] 193 U/L High 40-150 [facility] Comment on above: Performed By: #### L AB20, LAB46, LAB15 ####Watch Assembler: JUDITH MARKHAM ([phone])[facility])[address] [place] [address] ALT [Catalytic activity/Vol] 157 U/L High <40 [facility] Comment on above: Performed By: #### L AB20, LAB46, LAB15 ####Watch Assembler: JUDITH MARKHAM ([id number])[facility])[address] [place] [address] AST [Catalytic activity/Vol] 163 U/L High <34 [facility] Comment on above: Performed By: #### L AB20, LAB46, LAB15 ####Watch Assembler: JUDITH MARKHAM ([id number])[facility])[address] [place] [address] Bilirubin [Mass/Vol] 0.9 mg/dL Normal <1.2 [facility] Comment on above: Performed By: #### L AB20, LAB46, LAB15 ####Watch Assembler: JUDITH MARKHAM ([id number])[address] Bilirubin.indirect [Mass/Vol] 0.4 mg/dL Normal <0.5 [facility] Comment on above: Performed By: #### L AB20, LAB46, LAB15 ####Watch Assembler: JUDITH MARKHAM ([id number])[facility])[address] [place] [address] Protein [Mass/Vol] 7.9 g/dL Normal 6.4-8.3 [facility] Comment on above: Result Comment: Seru m protein values are higher than plasma values. Samples from recumbent persons are lower by up to 0.5 g/dL as compared to ambulatory persons. After 60 years values are lower by up to 0.2 g/dL. Performed By: #### L AB20, LAB46, LAB15 ####Watch Assembler: JUDITH MARKHAM ([phone])[facility])[address] [place] [address] Hepatic function 2000 panelo n 01-21-2024 Albumin [Mass/Vol] 4 g/dL 3.5 - 5.0 g/dL [facility] ALP [Catalytic activity/Vol] 193 U/L High 40 - 150 U/L [facility] ALT [Catalytic activity/Vol] 157 U/L High NINF - 40 U/L [facility] AST [Catalytic activity/Vol] 163 U/L High NINF - 34 U/L [facility] Bilirubin [Mass/Vol] 0.9 mg/dL [facility] 1.[facility] mg/dL [facility] Bilirubin.conjugated [Mass/Vol] 0.4 mg/dL [facility] - 0.5 mg/dL [facility] Protein [Mass/Vol] 7.9 g/dL 6.4 - 8.3 g/dL [facility] Comment on above: Serum protein values are higher than plasma values. Samples from recumbent persons are lower by up to 0.5 g/dL as compared to ambulatory persons. After 60 years values are lower by up to 0.2 g/dL. Laboratory - Coagulationon 1 03-23-2023 aPTT Coag (PPP) [Time] 25.7 s 20.0 - 30.5 s [facility] INR Coag (PPP) [Relative time] 1.1 {INR} 0.9 - 1.1 [facility] Comment on above: Recommended Anticoag ulant Therapy: [...] 12.4 s High 9.0 - 12.0 s [facility] - Drug toxicology Ordered By: Chelsey Anderson on 01-21-2024 Amphetamines Ql (U) Negative Negative [facility] Barbiturates screen method Nom (U) Positive Negative [facility] Benzodiazepines screen method Nom (U) Negative Negative [facility] Cocaine Ql (U) Negative Negative [facility] Ethanol [Mass/Vol] Negative Negative [facility] Methadone Ql (U) Negative Negative [facility] Opiates Screen Ql (U) Positive Negative [facility] MEDICATION ASSISTED TREATMEN T PANELon 01-21-2024 Amphetamines Ql (U) Negative Normal Negative [facility] Comment on above: Performed By: #### L [id number], [id number] ####Watch Assembler: JUDITH MARKHAM ([id number])[facility] ([facility])[address] [place] [address] BARBITURATES Positive Normal Negative [facility] Comment on above: Performed By: #### L [id number], [id number] ####Watch Assembler: JUDITH MARKHAM ([id number])[facility] ([facility])[address] [place] [address] Benzodiazepines Ql (U) Negative Normal Negative [facility] Comment on above: Performed By: #### L [id number], [id number] ####Watch Assembler: JUDITH MARKHAM ([id number])[facility] ([facility])[address] BUPRENORPHINE SCREEN Negative Normal Negative [facility] Comment on above: Performed By: #### L [id number], [id number] ####Watch Assembler: JUDITH MARKHAM ([id number])[facility] [place] [address] Cocaine Ql (U) Negative Normal Negative [facility] Comment on above: Performed By: #### L [id number], [id number] ####Watch Assembler: JUDITH MARKHAM ([id number])[facility] ([facility])[address] [place] [address] ETHANOL-ETOHO Negative Normal Negative [facility] Comment on above: Result Comment: [...] using non-forensic procedures. Performed By: #### L [id number], [id number] ####Watch Assembler: JUDITH MARKHAM ([id number])[facility] [place] [address] FENTANYL Negative Normal Negative [facility] Comment on above: Performed By: #### L [id number], [id number] ####Watch Assembler: JUDITH MARKHAM ([id number])[facility])[address] [place] [address] Methadone Ql (U) Negative Normal Negative [facility] Comment on above: Performed By: #### L [id number], [id number] ####Watch Assembler: JUDITH MARKHAM ([id number])[facility] ([facility])[address] [place] [address] Opiates Ql (U) Positive Normal Negative [facility] Comment on above: Performed By: #### L [id number], [id number] ####Watch Assembler: JUDITH MARKHAM ([id number])[facility])[address] [place] [address] OXYCODONE/OXYMORPHONE Negative Normal Negative [facility] Comment on above: Performed By: #### L [id number], [id number] ####Watch Assembler: JUDITH MARKHAM ([id number])[facility])[address] [place] [address] PCP Negative Normal Negative [facility] Comment on above: Performed By: #### L [id number], [id number] ####Watch Assembler: JUDITH MARKHAM ([id number])[facility] ([facility])[address] [place] [address] THC-MTTHC Negative Normal Negative [facility] Comment on above: Performed By: #### L [id number], [id number] ####Watch Assembler: JUDITH MARKHAM ([id number])[facility])[address] [place] [address] No Panel InformationOrdered By: Chelsey Anderson on 01-21-2024 BUPRENORPHINE SCREEN Negative Negative [facility] FENTANYL Negative Negative [facility] OXYCODONE/OXYMORPHONE Negative [facility] PCP Negative [facility] Negative [facility] The expected value f or [...] treatment only. Analysis performed using non-forensic procedures. [facility] No Panel InformationOrdered By: Sarita Espino on 01-21-2024 ETHYL GLUCURONIDE, URINE Positive Negative [facility] Ethyl Glucuronide castillo s been screened by [...] been determined by the clinical laboratories of [facility]. [facility] No Panel Informationon 01-20 Interpretation and review of laboratory results Abnormal [facility] Interpretation and review of laboratory results Abnormal [facility] Nursing Noteon 01-21-2024 Nursing Note Pt. On unit. BP jose elias ins elevated at 160/114. made aware and are okay with BP at present time. Normal [facility] PROTIME AND APTTon aPTT Coag (Bld) [Time] 25.7 s Normal 20.0-30.5 [facility] Comment on above: Performed By: #### L [id number] ####Watch Assembler: JUDITH MARKHAM ([id number])[address] INR Coag (PPP) [Relative time] 1.1 {INR} Normal 0.9-1.1 [facility] Comment on above: Result Comment: Mason mmended [...] prevent Myocardial Infarction Performed By: #### L [id number] ####Watch Assembler: JUDITH MARKHAM ([id number])[facility] ([facility])[address] [place] [address] PT Coag (PPP) [Time] 12.4 s High 9.0-12.0 [facility] Comment on above: Performed By: #### L [id number] ####Watch Assembler: JUDITH MARKHAM ([id number])[facility] ([facility])[address] [place] [address] Progress Noteon 01-21-2024 Progress Note Normal [facility] CBC W Auto Differential pane l (Bld)on 01-20-2024 Basophils (Bld) [#/Vol] 0.1 10*3/uL 0.0 - 0.2 10*3/uL [facility] Basophils/100 WBC (Bld) 0.7 % 0.0 - 2.0 % [facility] Eosinophils (Bld) [#/Vol] 0 10*3/uL 0.0 - 0.5 10*3/uL [facility] Eosinophils/100 WBC (Bld) 0.4 % 0.0 - 6.0 % [facility] Erythrocyte distribution width (RBC) [Ratio] 13.9 % 11.5 - 15.0 % [facility] Hematocrit (Bld) [Volume fraction] 48 % 40.0 - 52.0 % [facility] Hemoglobin (Bld) [Mass/Vol] 15.9 g/dL 13.0 - 18.0 g/dL [facility] Immature granulocytes (Bld) [#/Vol] 0 10*3/uL NINF - 0.1 10*3/uL [facility] Immature granulocytes/100 WBC (Bld) 0.2 % 0.0 - 2.0 % [facility] Interpretation and review of laboratory results Abnormal [facility] Lymphocytes (Bld) [#/Vol] 3.7 10*3/uL 1.0 - 4.3 10*3/uL [facility] Lymphocytes/100 WBC (Bld) 45.8 % High 15.0 - 45.0 % [facility] MCH (RBC) [Entitic mass] 29.9 pg 26.0 - 34.0 pg [facility] MCHC (RBC) [Mass/Vol] 33.1 % 30.5 - 36.0 % [facility] MCV (RBC) [Entitic vol] 90.2 fL 77.0 - 99.0 fL [facility] Monocytes (Bld) [#/Vol] 0.5 10*3/uL 0.0 - 0.9 10*3/uL [facility] Monocytes/100 WBC (Bld) 6.1 % 5.0 - 13.0 % [facility] Neutrophils (Bld) [#/Vol] 3.8 10*3/uL 1.8 - 7.5 10*3/uL [facility] Neutrophils/100 WBC (Bld) 46.8 % 38.0 - 82.0 % [facility] Nucleated RBC/100 WBC (Bld) [Ratio] 0 % [facility] Platelet mean volume (Bld) [Entitic vol] 9.7 fL 9.0 - 12.7 fL [facility] Platelets (Bld) [#/Vol] 323 10*3/uL 140 - 440 10*3/uL [facility] RBC (Bld) [#/Vol] 5.32 10*6/uL 4.40 - 5.9 0 10*6/uL [facility] WBC (Bld) [#/Vol] 8.2 10*3/uL 3.6 - 10.7 10*3/uL [facility] CBC WITH AUTO DIFFERENTIALon 01-20-2024 Basophils (Bld) [#/Vol] 0.1 10*3/uL Normal 0.0-0.2 [facility] Comment on above: Performed By: #### L [id number] ####Watch Assembler: JUDITH MARKHAM ([id number])[facility] ([facility])[address] [place] [address] Basophils/100 WBC (Bld) 0.7 % Normal 0.0-2.0 [facility] Comment on above: Performed By: #### L [id number] ####Watch Assembler: JUDITH MARKHAM ([id number])[facility] ([facility])[address] [place] [address] Eosinophils (Bld) [#/Vol] 0.0 10*3/uL Normal 0.0-0.5 [facility] Comment on above: Performed By: #### L [id number] ####Watch Assembler: JUDITH MARKHAM ([id number])[address] Eosinophils/100 WBC (Bld) 0.4 % Normal 0.0-6.0 [facility] Comment on above: Performed By: #### L [id number] ####Watch Assembler: JUDITH MARKHAM ([id number])[facility])[address] [place] [address] Erythrocyte distribution width (RBC) [Ratio] 13.9 % Normal 11.5-15.0 [facility] Comment on above: Performed By: #### L [id number] ####Watch Assembler: JUDITH MARKHAM ([id number])[address] Hematocrit (Bld) [Volume fraction] 48.0 % Normal 40.0-52.0 [facility] Comment on above: Performed By: #### L [id number] ####Watch Assembler: JUDITH MARKHAM ([id number])[address] Hemoglobin (Bld) [Mass/Vol] 15.9 g/dL Normal 13.0-18.0 [facility] Comment on above: Performed By: #### L [id number] ####Watch Assembler: JUDITH MARKHAM ([id number])[address] IMMATURE GRANS % 0.2 % Normal 0.0-2.0 [facility] Comment on above: Performed By: #### L [id number] ####Watch Assembler: JUDITH MARKHAM ([id number])[address] IMMATURE GRANS ABSOLUTE 0.0 10*3/uL Normal <0.1 [facility] Comment on above: Performed By: #### L [id number] ####Watch Assembler: JUDITH MARKHAM ([id number])[facility])[address] [place] [address] Lymphocytes (Bld) [#/Vol] 3.7 10*3/uL Normal 1.0-4.3 [facility] Comment on above: Performed By: #### L [id number] ####Watch Assembler: JUDITH MARKHAM ([id number])[facility])[address] [place] [address] Lymphocytes/100 WBC (Bld) 45.8 % High 15.0-45.0 [facility] Comment on above: Performed By: #### L [id number] ####Watch Assembler: JUDITH MARKHAM ([id number])[address] MCH (RBC) [Entitic mass] 29.9 pg Normal 26.0-34.0 [facility] Comment on above: Performed By: #### L [id number] ####Watch Assembler: JUDITH MARKHAM ([id number])[facility])[address] [place] [address] MCHC 33.1 % Normal 30.5-36.0 [facility] Comment on above: Performed By: #### L [id number] ####Watch Assembler: JUDITH MARKHAM ([id number])[facility])[address] [place] [address] MCV (RBC) [Entitic vol] 90.2 fL Normal 77.0-99.0 [facility] Comment on above: Performed By: #### L [id number] ####Watch Assembler: JUDITH MARKHAM ([id number])[facility])[address] [place] [address] Monocytes (Bld) [#/Vol] 0.5 10*3/uL Normal 0.0-0.9 [facility] Comment on above: Performed By: #### L [id number] ####Watch Assembler: JUDITH MARKHAM ([id number])[facility])[address] [place] [address] Monocytes/100 WBC (Bld) 6.1 % Normal 5.0-13.0 [facility] Comment on above: Performed By: #### L [id number] ####Watch Assembler: JUDITH MARKHAM ([id number])[facility] ([facility])[address] [place] [address] NEUTROPHILS ABSOLUTE 3.8 10*3/uL Normal 1.8-7.5 [facility] Comment on above: Performed By: #### L [id number] ####Watch Assembler: JUDITH MARKHAM ([id number])[facility] ([facility])[address] [place] [address] Neutrophils/100 WBC (Bld) 46.8 % Normal 38.0-82.0 [facility] Comment on above: Performed By: #### L [id number] ####Watch Assembler: JUDITH MARKHAM ([id number])[facility] ([facility])[address] [place] [address] NRBC 0.0 /100 WBCs Normal 0.0-2.0 [facility] Comment on above: Performed By: #### L [id number] ####Watch Assembler: JUDITH MARKHAM ([id number])[facility] ([facility])[address] [place] [address] Platelet mean volume (Bld) [Entitic vol] 9.7 fL Normal 9.0-12.7 [facility] Comment on above: Performed By: #### L [id number] ####Watch Assembler: JUDITH MARKHAM ([id number])[facility] ([facility])[address] [place] [address] [place] Platelets (Bld) [#/Vol] 323 10*3/uL Normal 140-440 [facility] Comment on above: Performed By: #### L [id number] ####Watch Assembler: JUDITH MARKHAM ([id number])[facility] ([facility])[address] [place] [address] RBC (Bld) [#/Vol] 5.32 10*6/uL Normal 4.40-5.90 [facility] Comment on above: Performed By: #### L [id number] ####Watch Assembler: JUDITH MARKHAM ([id number])[facility])[address] [place] [address] WBC (Bld) [#/Vol] 8.2 10*3/uL Normal 3.6-10.7 [facility] Comment on above: Performed By: #### L [id number] ####Watch Assembler: JUDITH MARKHAM ([id number])[facility] ([facility])[address] [place] [address] COMPLETE URINALYSISon 2023 BACTERIA (#/HPF) IN URINE Moderate Abnormal Negative [facility] Comment on above: Performed By: #### L [id number] ####Watch Assembler: JUDITH MARKHAM ([id number])[address] BILIRUBIN, TOTAL PRESENCE IN URINE Negative Normal Negative [facility] Comment on above: Performed By: #### L [id number] ####Watch Assembler: JUDITH MARKHAM ([id number])[facility])[address] [place] [address] Clarity (U) Slightly Cloudy Abnormal Clear [facility] Comment on above: Performed By: #### L [id number] ####Watch Assembler: JUDITH MARKHAM ([id number])[facility])[address] [place] [address] Color (U) Yellow Normal Lt. Yellow [facility] Comment on above: Performed By: #### L [id number] ####Watch Assembler: JUDITH MARKHAM ([id number])[facility])[address] [place] [address] Glucose (U) [Mass/Vol] 30 mg/dL Normal Normal (<70) [facility] Comment on above: Performed By: #### L [id number] ####Watch Assembler: JUDITH [id number])[facility])[address] [place] [address] HEMOGLOBIN PRESENCE IN URINE Negative Normal Negative [facility] Comment on above: Performed By: #### L [id number] ####Watch Assembler: JUDITH MARKHAM ([id number])[facility])[address] [place] [address] HYALINE CASTS (#/LPF) IN URINE SEDIMENT BY MICROSCOPY 11-25 Abnormal Negative [facility] Comment on above: Performed By: #### L [id number] ####Watch Assembler: JUDITH MARKHAM ([id number])[facility] ([facility])[address] [place] [address] Ketones Ql (U) Trace Abnormal Negative [facility] Comment on above: Performed By: #### L [id number] ####Watch Assembler: JUDITH MARKHAM ([id number])[facility])[address] [place] [address] LEUKOCYTE ESTERASE PRESENCE IN URINE BY TEST STRIP Negative Normal Negative [facility] Comment on above: Performed By: #### L [id number] ####Watch Assembler: JUDITH MARKHAM ([id number])[facility] ([facility])[address] [place] [address] MUCUS (#/LPF) IN URINE SEDIMENT Many Abnormal Negative [facility] Comment on above: Performed By: #### L [id number] ####Watch Assembler: JUDITH MARKHAM ([id number])[facility])[address] [place] [address] NITRITE PRESENCE IN URINE Negative Normal Negative [facility] Comment on above: Performed By: #### L [id number] ####Watch Assembler: JUDITH MARKHAM ([id number])[facility] ([facility])[address] [place] [address] pH (U) 5.5 [pH] Normal 5.0-8.0 [facility] Comment on above: Performed By: #### L [id number] ####Watch Assembler: JUDITH MARKHAM ([id number])[facility])[address] [place] [address] Protein (U) [Mass/Vol] 50 mg/dL Abnormal Negative [facility] Comment on above: Performed By: #### L [id number] ####Watch Assembler: JUDITH MARKHAM ([id number])[facility])[address] [place] [address] RBC (#/HPF) IN URINE SEDIMENT 0-2 Normal 0-2 [facility] Comment on above: Performed By: #### L [id number] ####Watch Assembler: JUDITH MARKHAM ([id number])[facility] ([facility])[address] [place] [address] Specific gravity (U) [Rel density] 1.019 Normal 1.005-1.030 [facility] Comment on above: Performed By: #### L [id number] ####Watch Assembler: JUDITH MARKHAM ([id number])[facility])[address] [place] [address] SQUAMOUS EPITHELIAL CELLS (#/HPF) IN URINE SEDIMENT 0-2 Normal 3-5 [facility] Comment on above: Performed By: #### L [id number] ####Watch Assembler: JUDITH MARKHAM ([id number])[facility])[address] [place] [address] UROBILINOGEN (MG/DL) IN URINE 3 mg/dL Abnormal Normal (0-1) [facility] Comment on above: Performed By: #### L [id number] ####Watch Assembler: JUDITH MARKHAM ([id number])[facility])[address] [place] [address] WBC (LEUKOCYTE) (#/HPF) IN URINE SEDIMENT 3-5 Normal 0-5 [facility] Comment on above: Performed By: #### L [id number] ####Watch Assembler: JUDITH MARKHAM ([id number])[facility])[address] [place] [address] COMPREHENSIVE METABOLIC PANE Rylan 01-20-2024 Albumin [Mass/Vol] 4.3 g/dL Normal 3.5-5.0 [facility] Comment on above: Performed By: #### L AB17, LAB99 ####Watch Assembler: JUDITH MARKHAM ([id number])[facility] ([facility])[address] ALP [Catalytic activity/Vol] 209 U/L High 40-150 [facility] Comment on above: Performed By: #### L AB17, LAB99 ####Watch Assembler: JUDITH MARKHAM ([id number])[facility])[address] [place] [address] [place] ALT [Catalytic activity/Vol] 206 U/L High <40 [facility] Comment on above: Performed By: #### L AB17, LAB99 ####Watch Assembler: JUDITH MARKHAM ([id number])[facility] ([facility])[address] [place] [address] Anion gap [Moles/Vol] 13 mmol/L Normal 3-13 [facility] Comment on above: Performed By: #### L AB17, LAB99 ####Watch Assembler: JUDITH MARKHAM ([id number])[facility])[address] [place] [address] AST [Catalytic activity/Vol] 235 U/L High <34 [facility] Comment on above: Performed By: #### L AB17, LAB99 ####Watch Assembler: JUDITH MARKHAM ([id number])[facility] ([facility])[address] [place] [address] Bilirubin [Mass/Vol] 0.6 mg/dL Normal <1.2 [facility] Comment on above: Performed By: #### L AB17, LAB99 ####Watch Assembler: JUDITH MARKHAM ([id number])[facility] ([facility])[address] [place] [address] Calcium [Mass/Vol] 9.5 mg/dL Normal 8.4-10.2 [facility] Comment on above: Performed By: #### L AB17, LAB99 ####Watch Assembler: JUDITH MARKHAM ([id number])[facility] ([facility])[address] [place] [address] [place] Chloride [Moles/Vol] 103 mmol/L Normal 98-107 [facility] Comment on above: Performed By: #### L AB17, LAB99 ####Watch Assembler: JUDITH MARKHAM ([id number])[facility] ([facility])[address] [place] [address] CO2 [Moles/Vol] 27 mmol/L Normal 22-29 [facility] Comment on above: Performed By: #### Iggy AB17, LAB99 ####Watch Assembler: JUDITH MARKHAM ([id number])[facility])[address] [place] [address] Creatinine [Mass/Vol] 0.84 mg/dL Normal 0.72-1.25 [facility] Comment on above: Performed By: #### Iggy AB17, LAB99 ####Watch Assembler: JUDITH MARKHAM ([id number])[facility])[address] [place] [address] GLOMERULAR FILTRATION RATE ML/MIN/1.73 SQ M.PREDICTED >90.0 Normal >60.0 [facility] Comment on above: Result Comment: Calc ulation based on the Chronic Kidney Disease Epidemiology Collaboration (CKD-EPI) equation refit without adjustment for race Performed By: #### L 17, LAB99 ####Watch Assembler: JUDITH MARKHAM ([id number])[facility] ([facility])[address] [place] [address] Glucose [Mass/Vol] 136 mg/dL High 74-100 [facility] Comment on above: Performed By: #### L AB17, LAB99 ####Watch Assembler: JUDITH MARKHAM ([id number])[facility])[address] [place] [address] [place] Potassium [Moles/Vol] 4.5 mmol/L Normal 3.5-5.1 [facility] Comment on above: Result Comment: [facility] potassium values may be up to 0.5 mmol/L lower than serum values. Performed By: #### L AB17, LAB99 ####Watch Assembler: JUDITH MARKHAM ([id number])[facility] [place] [address] Protein [Mass/Vol] 8.7 g/dL High 6.4-8.3 [facility] Comment on above: Performed By: #### L AB17, LAB99 ####Watch Assembler: JUDITH MARKHAM ([phone])[facility])[address] [place] [address] Sodium [Moles/Vol] 143 mmol/L Normal 136-145 [facility] Comment on above: Performed By: #### L AB17, LAB99 ####Watch Assembler: JUDITH MARKHAM ([id number])[facility])[address] [place] [address] Urea nitrogen [Mass/Vol] 4 mg/dL Low 8-21 [facility] Comment on above: Performed By: #### L AB17, LAB99 ####Watch Assembler: JUDITH MARKHAM ([id number])[facility] ([facility])[address] [place] [address] CT ABDOMEN PELVIS W CONTRAST on 01-20-2024 CT ABDOMEN PELVIS W CONTRAST Normal [facility] CT Abdomen and Pelvis W cont rast Ellen 01-20-2024 1. Acute pancreatitis. 2. Bladder wall mildly diffusely thickened which may relate to under distention. Correlate with urinalysis. 3. Diffuse hepatic steatosis. Report Dictated on Electronically Signed By: Steve Medellin MD Electronically Signed Date/Time: 01/20/2024 2:50 PM [facility] Patient Name: RORO CLAIRE [...] related to under distention. No bowel obstruction. [facility] Steev Medellin MD - 01/20/2024 Patient Name: RORO [...] Electronically Signed Date/Time: 01/20/2024 2:50 PM EST [facility] [employer] Radiology Study observation (narrative) [facility] [employer] CT Abdomen and Pelvis W cont rast IVOrdered By: Steve Medellin on 01-20-2024 [facility] [employer] Work Phone: Comprehensive metabolic 1998 panelon 01-20-2024 Albumin [Mass/Vol] 4.3 g/dL 3.5 - 5.0 g/dL [facility] ALP [Catalytic activity/Vol] 209 U/L High 40 - 150 U/L [facility] ALT [Catalytic activity/Vol] 206 U/L High NINF - 40 U/L [facility] Anion gap [Moles/Vol] 13 mmol/L 3 - 13 mmol/L [facility] AST [Catalytic activity/Vol] 235 U/L High NINF - 34 U/L [facility] Bilirubin [Mass/Vol] 0.6 mg/dL NINF - 1.2 mg/dL [facility] Calcium [Mass/Vol] 9.5 mg/dL 8.4 - 10. 2 mg/dL [facility] Chloride [Moles/Vol] 103 mmol/L 98 - 10 7 mmol/L [facility] CO2 [Moles/Vol] 27 mmol/L 22 - 29 mmol/L [facility] Creatinine [Mass/Vol] 0.84 mg/dL 0.72 - 1.25 mg/dL [facility] GFR/1.73 sq M.predicted (S/P/Bld) [Vol rate/Area] - PINF [facility] Comment on above: Calculation based on the Chronic Kidney Disease Epidemiology Collaboration (CKD-EPI) equation refit without adjustment for race Glucose [Mass/Vol] 136 mg/dL High 74 - 100 mg/dL [facility] Potassium [Moles/Vol] 4.5 mmol/L 3.5 - 5.1 mmol/L [facility] Comment on above: Plasma potassium víctor ues may be up to 0.5 mmol/L lower than serum values. Protein [Mass/Vol] 8.7 g/dL High 6.4 - 8.3 g/dL [facility] Sodium [Moles/Vol] 143 mmol/L 136 - 145 mmol/L [facility] Urea nitrogen [Mass/Vol] 4 mg/dL Low 8 - 21 mg/dL [facility] ED Nursing Noteon 01-20-2024 ED Nursing Note Normal [facility] ED Nursing Note Normal [facility] ED Nursing Note Pt ambulated to bathroom independently with IV pole with a steady gait. Back to bed with no distress with exertion. Chest rise equal, axo x4. No needs expressed at this time. Normal [facility] ED Nursing Note Pt medicated per oder Normal [facility] ED Provider Noteon ED Provider Note Normal [facility] LIPASEon 01-20-2024 Lipase [Catalytic activity/Vol] 273 U/L High <55 [facility] Comment on above: Performed By: #### L AB17, LAB99 ####Watch Assembler: JUDITH MARKHAM ([id number])[facility] ([address] Laboratory - Chemistry and C hemistry - challengeon 01-20-2024 Lipase [Catalytic activity/Vol] 273 U/L High NINF - 55 U/L [facility] No Panel Informationon 01-19 Interpretation and review of laboratory results Abnormal [facility] Nursing Noteon 01-20-2024 Nursing Note Normal [facility] Urinalysis complete panel (U )Ordered By: Clement Sullivan on 01-20-2024 Bacteria LM.HPF (Urine sed) [#/Area] Moderate Abnormal Negative /HPF [facility] [place] Bilirubin Ql (U) Negative Negative mg/dL [facility] Clarity (U) Slightly Cloudy Abnormal Clear [facility] Color (U) Yellow Lt. Yellow [facility] Epithelial cells.squamous LM.HPF (Urine sed) [#/Area] 0-2 [facility] Glucose Ql (U) 30 mg/dL Normal (<70) [facility] Hemoglobin Ql (U) Negative Negative mg/dL [facility] Hyaline casts Auto (Urine sed) [#/Area] 11-25 Abnormal Negative /LPF [facility] Interpretation and review of laboratory results Abnormal [facility] Ketones (U) [Mass/Vol] Trace Abnormal Negat chan mg/dL [facility] Leukocyte esterase Test strip Ql (U) Negative Negative Teofilo/uL [facility] Mucus LM.HPF (Urine sed) [#/Area] Many Abnormal Negative /LPF [facility] Nitrite Ql (U) Negative Negative [facility] pH (U) 5.5 [pH] 5.0 - 8.0 pH [facility] Protein (U) [Mass/Vol] 50 mg/dL Abnormal Negative [facility] RBC LM.HPF (Urine sed) [#/Area] 0-2 [facility] Specific gravity (U) [Rel density] 1.019 1.005 - 1.030 [facility] Urobilinogen (U) [Mass/Vol] 3 mg/dL Abnormal Normal (0-1) [facility] WBC LM.HPF (Urine sed) [#/Area] 3-5 [facility] CBC W Auto Differential pane l (Bld)on 01-08-2024 Basophils (Bld) [#/Vol] 0 10*3/uL 0.0 - 0.2 10*3/uL [facility] [place] [facility] Basophils/100 WBC (Bld) 0.5 % 0.0 - 2.0 % [facility] Eosinophils (Bld) [#/Vol] 0.1 10*3/uL 0.0 - 0.5 10*3/uL [facility] Eosinophils/100 WBC (Bld) 0.8 % 0.0 - 6.0 % [facility] Erythrocyte distribution width (RBC) [Ratio] 13.7 % 11.5 - 15.0 % [facility] Hematocrit (Bld) [Volume fraction] 47.7 % 40.0 - 52.0 % [facility] Hemoglobin (Bld) [Mass/Vol] 15.6 g/dL 13.0 - 18.0 g/dL [facility] Immature granulocytes (Bld) [#/Vol] 0 10*3/uL NINF - 0.1 10*3/uL [facility] Immature granulocytes/100 WBC (Bld) 0.1 % 0.0 - 2.0 % [facility] Interpretation and review of laboratory results Normal [facility] Lymphocytes (Bld) [#/Vol] 1.9 10*3/uL 1.0 - 4.3 10*3/uL [facility] Lymphocytes/100 WBC (Bld) 24.4 % 15.0 - 45.0 % [facility] MCH (RBC) [Entitic mass] 31 pg 26.0 - 34.0 pg [facility] MCHC (RBC) [Mass/Vol] 32.7 % 30.5 - 36.0 % [facility] MCV (RBC) [Entitic vol] 94.6 fL 77.0 - 99.0 fL [facility] Monocytes (Bld) [#/Vol] 0.5 10*3/uL 0.0 - 0.9 10*3/uL [facility] Monocytes/100 WBC (Bld) 5.9 % 5.0 - 13.0 % [facility] Neutrophils (Bld) [#/Vol] 5.3 10*3/uL 1.8 - 7.5 10*3/uL [facility] Neutrophils/100 WBC (Bld) 68.3 % 38.0 - 82.0 % [facility] Nucleated RBC/100 WBC (Bld) [Ratio] 0 % [facility] Platelet mean volume (Bld) [Entitic vol] 10.5 fL 9.0 - 12.7 fL [facility] Platelets (Bld) [#/Vol] 300 10*3/uL 140 - 440 10*3/uL [facility] RBC (Bld) [#/Vol] 5.04 10*6/uL 4.40 - 5.9 0 10*6/uL [facility] WBC (Bld) [#/Vol] 7.8 10*3/uL 3.6 - 10.7 10*3/uL [facility] CBC WITH AUTO DIFFERENTIALon 01-08-2024 Basophils (Bld) [#/Vol] 0.0 10*3/uL Normal 0.0-0.2 [facility] Comment on above: Performed By: #### L [id number] ####Watch Assembler: SHENA GUERIN ([id number])[facility] [place] [address] Basophils/100 WBC (Bld) 0.5 % Normal 0.0-2.0 [facility] Comment on above: Performed By: #### L [id number] ####Watch Assembler: SHENA GUERIN ([id number])[facility] (SBAB)[address] Eosinophils (Bld) [#/Vol] 0.1 10*3/uL Normal 0.0-0.5 [facility] Comment on above: Performed By: #### L [id number] ####Watch Assembler: SHENA GUERIN ([id number])[facility] (SBHLAB)[address] Eosinophils/100 WBC (Bld) 0.8 % Normal 0.0-6.0 [facility] Comment on above: Performed By: #### L [id number] ####Watch Assembler: SHENA GUERIN ([phone])[facility])[address] Erythrocyte distribution width (RBC) [Ratio] 13.7 % Normal 11.5-15.0 [facility] Comment on above: Performed By: #### L [id number] ####Watch Assembler: SHENA GUERIN ([id number])[facility])[address] [place] [address] Hematocrit (Bld) [Volume fraction] 47.7 % Normal 40.0-52.0 [facility] Comment on above: Performed By: #### L [id number] ####Watch Assembler: SHENA GUERIN ([id number])[facility] [place] [address] Hemoglobin (Bld) [Mass/Vol] 15.6 g/dL Normal 13.0-18.0 [facility] Comment on above: Performed By: #### L [id number] ####Watch Assembler: SHENA GUERIN ([id number])[facility])[address] IMMATURE GRANS % 0.1 % Normal 0.0-2.0 [facility] Comment on above: Performed By: #### L [id number] ####Watch Assembler: SHENA GUERIN ([id number])[facility])[address] IMMATURE GRANS ABSOLUTE 0.0 10*3/uL Normal <0.1 [facility] Comment on above: Performed By: #### L [id number] ####Watch Assembler: SHENA GUERIN ([phone])[facility] ([facility])[address] Lymphocytes (Bld) [#/Vol] 1.9 10*3/uL Normal 1.0-4.3 [facility] Comment on above: Performed By: #### L [id number] ####Watch Assembler: SHENA GUERIN ([id number])[facility] [place] (SB[facility]AB)[address] Lymphocytes/100 WBC (Bld) 24.4 % Normal 15.0-45.0 [facility] Comment on above: Performed By: #### L [id number] ####Watch Assembler: SHENA GUERIN ([phone])[facility] [place] ([facility])[address] MCH (RBC) [Entitic mass] 31.0 pg Normal 26.0-34.0 [facility] Comment on above: Performed By: #### L [id number] ####Watch Assembler: SHENA GUERIN ([id number])[facility] [place] ([facility])[address] MCHC 32.7 % Normal 30.5-36.0 [facility] Comment on above: Performed By: #### L [id number] ####Watch Assembler: SHENA GUERIN ([phone])[facility] [place] ([facility])[address] MCV (RBC) [Entitic vol] 94.6 fL Normal 77.0-99.0 [facility] Comment on above: Performed By: #### L [id number] ####Watch Assembler: SHENA GUERIN ([id number])[facility] [place] ([facility])[address] [place] [address] [place] Monocytes (Bld) [#/Vol] 0.5 10*3/uL Normal 0.0-0.9 [facility] Comment on above: Performed By: #### L [id number] ####Watch Assembler: SHENA GUERIN ([id number])[facility] ([facility])[address] Monocytes/100 WBC (Bld) 5.9 % Normal 5.0-13.0 [facility] Comment on above: Performed By: #### L [id number] ####Watch Assembler: SHENA GUERIN ([id number])[facility] ([facility])[address] NEUTROPHILS ABSOLUTE 5.3 10*3/uL Normal 1.8-7.5 [facility] Comment on above: Performed By: #### L [id number] ####Watch Assembler: SHENA GUERIN ([id number])[facility] ([facility])[address] Neutrophils/100 WBC (Bld) 68.3 % Normal 38.0-82.0 [facility] Comment on above: Performed By: #### L [id number] ####Watch Assembler: SHENA GUERIN ([id number])[facility] ([facility])[address] NRBC 0.0 /100 WBCs Normal 0.0-2.0 [facility] Comment on above: Performed By: #### L [id number] ####Watch Assembler: SHENA GUERIN ([id number])[facility] ([facility])[address] Platelet mean volume (Bld) [Entitic vol] 10.5 fL Normal 9.0-12.7 [facility] Comment on above: Performed By: #### L [id number] ####Watch Assembler: SHENA GUERIN ([id number])[facility] ([facility])[address] [place] [address] [place] Platelets (Bld) [#/Vol] 300 10*3/uL Normal 140-440 [facility] Comment on above: Performed By: #### L [id number] ####Watch Assembler: SHENA GUERIN ([id number])[facility] ([facility])[address] RBC (Bld) [#/Vol] 5.04 10*6/uL Normal 4.40-5.90 [facility] Comment on above: Performed By: #### L [id number] ####Watch Assembler: SHENA GUERIN ([phone])[facility]ONKyler [facility]UMANNN (SBHLAB)[address] WBC (Bld) [#/Vol] 7.8 10*3/uL Normal 3.6-10.7 [facility] Comment on above: Performed By: #### L [id number] ####Watch Assembler: SHENA GUERIN ([phone])[facility]ON[facility]yler NEUMANNN (SBHLAB)[address] COMPREHENSIVE METABOLIC PANE Rylan 01-08-2024 Albumin [Mass/Vol] 4.8 g/dL Normal 3.5-5.0 [facility] Comment on above: Performed By: #### L AB99, LAB17 ####Watch Assembler: SHENA GUERIN ([id number])[facility]ON[facility] NEUMANNN (SBHLAB)[address] ALP [Catalytic activity/Vol] 146 U/L High 38-126 [facility] Comment on above: Performed By: #### L AB99, LAB17 ####Watch Assembler: SHENA GUERIN ([id number])[facility]ONKyler ENGELNEW [facility]EX[facility] (SBHLAB)[address] ALT [Catalytic activity/Vol] 139 U/L High 0-49 [facility] Comment on above: Performed By: #### L AB99, LAB17 ####Watch Assembler: SHENA GUERIN ([id number])[facility]ONKyler ENGELNEW MEX[facility] VE[facility]ASN (SBHLAB)[address] Anion gap [Moles/Vol] 9 mmol/L Normal 3-13 [facility] Comment on above: Performed By: #### L AB99, LAB17 ####Watch Assembler: SHENA GUERIN ([id number])[facility] ([facility])[address] AST [Catalytic activity/Vol] 151 U/L High 15-46 [facility] Comment on above: Performed By: #### L AB99, LAB17 ####Watch Assembler: SHENA GUERIN ([phone])[facility] ([facility])[address] [place] [address] [place] Bilirubin [Mass/Vol] 1.5 mg/dL High 0.2-1.3 [facility] Comment on above: Performed By: #### L AB99, LAB17 ####Watch Assembler: HSENA GUERIN ([id number])[facility] [place] ([facility])[address] Calcium [Mass/Vol] 9.8 mg/dL Normal 8.4-10.4 [facility] Comment on above: Performed By: #### L AB99, LAB17 ####Watch Assembler: SHENA GUERIN ([phone])[facility] [place] ([facility])[address] [place] [address] [place] Chloride [Moles/Vol] 101 mmol/L Normal 98-107 [facility] Comment on above: Performed By: #### L AB99, LAB17 ####Watch Assembler: SHENA GUERIN ([phone])[facility] [place] ([facility])[address] [place] [address] [place] CO2 [Moles/Vol] 26 mmol/L Normal 22-30 [facility] Comment on above: Performed By: #### L AB99, LAB17 ####Watch Assembler: SHENA GUERIN ([phone])[facility] [place] ([facility])[address] [place] [address] [place] Creatinine [Mass/Vol] 0.65 mg/dL Low 0.66-1.25 [facility] Comment on above: Performed By: #### L AB99, LAB17 ####Watch Assembler: SHENA GUERIN ([id number])[facility] ([facility])[address] [place] [address] [place] GLOMERULAR FILTRATION RATE ML/MIN/1.73 SQ M.PREDICTED >90.0 Normal >60.0 [facility] Comment on above: Result Comment: Calc ulation based on the Chronic Kidney Disease Epidemiology Collaboration (CKD-EPI) equation refit without adjustment for raceORDER COMMENTS:Moderately Hemolyzed. Interpret with caution. Performed By: #### L AB99, LAB17 ####Watch Assembler: SHENA GUERIN ([phone])[facility] (SBHLAB)[address] [place] [address] [place] Glucose [Mass/Vol] 127 mg/dL High 70-100 [facility] Comment on above: Performed By: #### L AB99, LAB17 ####Watch Assembler: SHENA GUERIN ([id number])[facility] (SB[facility]AB)[address] [place] [address] [place] Potassium [Moles/Vol] 5.5 mmol/L High 3.5-5.1 [facility] Comment on above: Performed By: #### L AB99, LAB17 ####Watch Assembler: SHENA GUERIN ([id number])[facility] (HLAB)[address] [place] [address] [place] Protein [Mass/Vol] 8.6 g/dL High 6.3-8.2 [facility] Comment on above: Performed By: #### L AB99, LAB17 ####Watch Assembler: SHENA GUERIN ([id number])[facility] (SBHLAB)[address] [place] [address] [place] Sodium [Moles/Vol] 136 mmol/L Normal 135-145 [facility] Comment on above: Performed By: #### L AB99, LAB17 ####Watch Assembler: SHENA GUERIN ([phone])[facility] (SB[facility])[address] [place] [address] [place] Urea nitrogen [Mass/Vol] 7 mg/dL Low 9-20 [facility] Comment on above: Performed By: #### L AB99, LAB17 ####Watch Assembler: SHENA GUERIN ([id number])[facility] (SBHLAB)[address] [place] [address] Comprehensive metabolic 1998 panelon 01-08-2024 Albumin [Mass/Vol] 4.8 g/dL 3.5 - 5.0 g/dL [facility] ALP [Catalytic activity/Vol] 146 U/L High 38 - 126 U/L [facility] ALT [Catalytic activity/Vol] 139 U/L High 0 - 49 U/L [facility] Anion gap [Moles/Vol] 9 mmol/L 3 - 13 mmol/L [facility] AST [Catalytic activity/Vol] 151 U/L High 15 - 46 U/L [facility] Bilirubin [Mass/Vol] 1.5 mg/dL High 0.2 - 1 .3 mg/dL [facility] Calcium [Mass/Vol] 9.8 mg/dL 8.4 - 10. 4 mg/dL [facility] Chloride [Moles/Vol] 101 mmol/L 98 - 10 7 mmol/L [facility] CO2 [Moles/Vol] 26 mmol/L 22 - 30 mmol/L [facility] Creatinine [Mass/Vol] 0.65 mg/dL Low 0.66 - 1.25 mg/dL [facility] GFR/1.73 sq M.predicted (S/P/Bld) [Vol rate/Area] - PINF [facility] Comment on above: Calculation based on the Chronic Kidney Disease Epidemiology Collaboration (CKD-EPI) equation refit without adjustment for race Glucose [Mass/Vol] 127 mg/dL High 70 - 100 mg/dL [facility] Potassium [Moles/Vol] 5.5 mmol/L High 3.5 - 5.1 mmol/L [facility] Protein [Mass/Vol] 8.6 g/dL High 6.3 - 8.2 g/dL [facility] Sodium [Moles/Vol] 136 mmol/L 135 - 145 mmol/L [facility] Urea nitrogen [Mass/Vol] 7 mg/dL Low 9 - 20 mg/dL [facility] Moderately Hemolyzed . Interpret with caution. [facility] [employer] ECG 12-LEADon 01-08-2024 ECG 12-LEAD IMPRESSION: Sinus rhythm LVH by voltage Borderline T abnormalities, inferior leads ST elev, probable normal early repol pattern Electronically Signed On 01-08-2024 14:16:40 EST by Josseline Weber Normal [facility] ED Nursing Noteon 01-08-2024 ED Nursing Note Normal [facility] ED Provider Noteon ED Provider Note Normal [facility] LIPASEon 01-08-2024 Lipase [Catalytic activity/Vol] 484 U/L High 23-300 [facility] Comment on above: Performed By: #### L AB99, LAB17 ####Watch Assembler: SHENA GUERIN ([phone])[facility] (SBHLAB)[address] [place] [address] Laboratory - Chemistry and C hemistry - challengeon 01-08-2024 Lipase [Catalytic activity/Vol] 484 U/L High 23 - 300 U/L [facility] No Panel Informationon 01-07 P [place] 50 degrees [facility] [place] Interval 148 ms [facility] QRS [place] -13 degrees [facility] QRSD Interval 95 ms [facility] QT Interval 410 ms [facility] QTC Interval 444 ms [facility] T Wave [place] -2 degrees [facility] Sinus rhythm LVH by voltage Borderline T abnormalities, inferior leads ST elev, probable normal early repol pattern Electronically Signed On 01-08-2024 14:16:40 EST by Josseline Weber CV Josseline Davepnort MD - 01/08/2024 IMPRESSION: Sinus rhythm LVH by voltage Borderline T abnormalities, inferior leads ST elev, probable normal early repol pattern Electronically Signed On 01-08-2024 14:16:40 EST by Josseline Weber [facility] Interpretation and review of laboratory results Abnormal [facility] Vital signson 01-08-2024 Heart rate 70 /min bpm [facility] ALLIED HEALTHon 12-22-2023 ALLIED HEALTH HNO ID: [id number] Author: SEEMA WALTON RT(R) Service: Radiology Author [...] 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 CBC W Auto Differential pane l (Bld)on 12-22-2023 Basophils (Bld) [#/Vol] 0.05 10*3/uL Normal <0.11 [facility] Comment on above: Order Comment: Speci men Type: BLOOD SPECIMENOrdering Facility: [facility] Address: [address] [place] [address] Performed By: #### 5 7021-8 ####[facility]RT [facility] LABCLIA [id number] [place] [address] [place] [facility] Basophils/100 WBC (Bld) 0.7 % Normal A [facility] Comment on above: Order Comment: Speci men Type: BLOOD SPECIMENOrdering Facility: [facility] Address: [address] [place] [address] Performed By: #### 5 7021-8 ####[facility]RT [facility] LABCLIA [id number] [place] [address] [facility] Differential cell count method Nom (Bld) Auto Normal [facility] Comment on above: Order Comment: Speci men Type: BLOOD SPECIMENOrdering Facility: [facility] Address: [address] [place] [address] Performed By: #### 5 7021-8 ####[facility] LABCLIA [id number] [place] [address] [facility] Eosinophils (Bld) [#/Vol] 0.04 10*3/uL Normal <0.46 [facility] Comment on above: Order Comment: Speci men Type: BLOOD SPECIMENOrdering Facility: [facility] Address: [address] [place] [address] Performed By: #### 5 7021-8 ####[facility] LABCLIA [id number] [place] [address] [facility] Eosinophils/100 WBC (Bld) 0.6 % Normal [facility] Comment on above: Order Comment: Speci men Type: BLOOD SPECIMENOrdering Facility: [facility] Address: [address] [place] [address] Performed By: #### 5 7021-8 ####[facility] LABCLIA [id number] [place] [address] [place] [facility] Erythrocyte distribution width (RBC) [Ratio] 14.2 % Normal 11.5-15.0 [facility] Comment on above: Order Comment: Speci men Type: BLOOD SPECIMENOrdering Facility: [facility] Address: [address] [place] [address] Performed By: #### 5 7021-8 ####COURT MURRAY LABCLIA [id number] [place] [address] [place] Hematocrit (Bld) [Volume fraction] 45.7 % Normal 39.0-51.0 [facility] Comment on above: Order Comment: Speci men Type: BLOOD SPECIMENOrdering Facility: [facility] Address: [address] [place] [address] Performed By: #### 5 7021-8 ####VANCEMAYURI MURRAY LABCLIA [id number] [place] [address] [place] Hemoglobin (Bld) [Mass/Vol] 15.2 g/dL Normal 13.0-17.0 [facility] Comment on above: Order Comment: Speci men Type: BLOOD SPECIMENOrdering Facility: [facility] Address: [address] [place] [address] Performed By: #### 5 7021-8 ####COURT MURRAY LABCLIA [id number] [place] [address] [place] Immature granulocytes (Bld) [#/Vol] 10*3/uL Normal <0.10 [facility] Comment on above: Order Comment: Speci men Type: BLOOD SPECIMENOrdering Facility: [facility] Address: [address] [place] [address] Performed By: #### 5 7021-8 ####COURT [facility] LABCLIA [id number] [place] [address] [place] Immature granulocytes/100 WBC (Bld) 0.0 % Normal [facility] Comment on above: Order Comment: Speci men Type: BLOOD SPECIMENOrdering Facility: [facility] Address: [address] [place] [address] Performed By: #### 5 7021-8 ####PAMAYURI MURRAY LABCLIA [id number] [place] [address] [place] Lymphocytes (Bld) [#/Vol] 2.01 10*3/uL Normal 1.00-4.00 [facility] Comment on above: Order Comment: Speci men Type: BLOOD SPECIMENOrdering Facility: [facility] Address: [address] [place] [address] Performed By: #### 5 7021-8 ####PAMAYURI [facility] LABCLIA [id number] [place] [address] [facility] Lymphocytes/100 WBC (Bld) 28.2 % Normal [facility] Comment on above: Order Comment: Speci men Type: BLOOD SPECIMENOrdering Facility: [facility] Address: [address] [place] [address] Performed By: #### 5 7021-8 ####[facility] LABCLIA [id number] [place] [address] [place] MCH (RBC) [Entitic mass] 31.4 pg Normal 26.0-34.0 [facility] Comment on above: Order Comment: Speci men Type: BLOOD SPECIMENOrdering Facility: [facility] Address: [address] [place] [address] Performed By: #### 5 7021-8 ####PAMAYURI [facility] LABCLIA [id number] [place] [address] [place] MCHC (RBC) [Mass/Vol] 33.3 g/dL Normal 30.5-36.0 [facility] Comment on above: Order Comment: Speci men Type: BLOOD SPECIMENOrdering Facility: [facility] Address: [address] [place] [address] Performed By: #### 5 7021-8 ####[facility] LABCLIA [id number] [place] [address] [facility] MCV (RBC) [Entitic vol] 94.4 fL Normal 80.0-100.0 A [facility] Comment on above: Order Comment: Speci men Type: BLOOD SPECIMENOrdering Facility: [facility] Address: [address] [place] [address] Performed By: #### 5 7021-8 ####COURT JU[facility] LABCLIA [id number] [place] [address] [place] Monocytes (Bld) [#/Vol] 0.66 10*3/uL Normal <0.87 [facility] Comment on above: Order Comment: Speci men Type: BLOOD SPECIMENOrdering Facility: [facility] Address: [address] [place] [address] Performed By: #### 5 7021-8 ####COURT JUAN GREEN LABCLIA [id number] [place] [address] [place] Monocytes/100 WBC (Bld) 9.2 % Normal A [facility] Comment on above: Order Comment: Speci men Type: BLOOD SPECIMENOrdering Facility: [facility] Address: [address] [place] [address] Performed By: #### 5 7021-8 ####COURT MURRAY LABCLIA [id number] [place] [address] [place] Neutrophils (Bld) [#/Vol] 4.38 10*3/uL Normal 1.45-7.50 [facility] Comment on above: Order Comment: Speci men Type: BLOOD SPECIMENOrdering Facility: [facility] Address: [address] [place] [address] Performed By: #### 5 7021-8 ####[facility] J[facility] GRE[facility] LABCLIA [id number] [place] [address] [place] Neutrophils/100 WBC (Bld) 61.3 % Normal [facility] Comment on above: Order Comment: Speci men Type: BLOOD SPECIMENOrdering Facility: [facility] Address: [address] [place] [address] Performed By: #### 5 7021-8 ####COURT M[facility] LABCLIA [id number] [place] [address] [place] Nucleated RBC (Bld) [#/Vol] Normal [facility] Comment on above: Order Comment: Speci men Type: BLOOD SPECIMENOrdering Facility: [facility] Address: [address] [place] [address] Performed By: #### 5 7021-8 ####COURT M[facility] LABCLIA [id number] [place] [address] [place] Nucleated RBC/100 WBC (Bld) [Ratio] Normal [facility] Comment on above: Order Comment: Speci men Type: BLOOD SPECIMENOrdering Facility: [facility] Address: [address] [place] [address] Performed By: #### 5 7021-8 ####PAMAYURI MURRAY LABCLIA [id number] [place] [address] [place] Platelet mean volume (Bld) [Entitic vol] 10.1 fL Normal 9.0-12.7 [facility] Comment on above: Order Comment: Speci men Type: BLOOD SPECIMENOrdering Facility: [facility] Address: [address] [place] [address] Performed By: #### 5 7021-8 ####PAMAYURI MURRAY LABCLIA [id number] [place] [address] [place] Platelets (Bld) [#/Vol] 179 10*3/uL Normal 150-400 [facility] Comment on above: Order Comment: Speci men Type: BLOOD SPECIMENOrdering Facility: [facility] Address: [address] [place] [address] Performed By: #### 5 7021-8 ####[facility] LABCLIA [id number] [place] [address] [place] RBC (Bld) [#/Vol] 4.84 10*6/uL Normal 4.20-6.00 [facility] Comment on above: Order Comment: Speci men Type: BLOOD SPECIMENOrdering Facility: [facility] Address: [address] [place] [address] Performed By: #### 5 7021-8 ####[facility] RICARDO LABCLIA [id number] [place] [address] [place] WBC (Bld) [#/Vol] 7.14 10*3/uL Normal 3.70-11.00 [facility] Comment on above: Order Comment: Speci men Type: BLOOD SPECIMENOrdering Facility: [facility] Address: [address] [place] [address] Performed By: #### 5 7021-8 ####[facility] LABCLIA [id number] [place] [address] [place] CT ABD/PEL W IVCONon 024 CT ABD/PEL W IVCON * * *Final Report* * * DATE OF EXAM: Dec 22 2023 2:41PM [facility] 0530 - CT ABD/PEL W IVCON [...] or necrosis. No measurable collection. Hepatic steatosis. Wireless Operator: MORA Transcribe Date/Time: Dec 22 2023 3:01P Dictated by : EVI BROOKS MD This examination was interpreted and the report reviewed and electronically signed by: EVI BROOKS MD on Dec 22 2023 3:16PM EST [id number] Normal [facility] Comprehensive metabolic 2000 panelon 12-22-2023 Albumin [Mass/Vol] 4.8 g/dL Normal 3.9-4.9 [facility] Comment on above: Order Comment: Speci men Type: BLOOD SPECIMENOrdering Facility: [facility] Address: [address] [place] [address] Performed By: #### 5 643-2, 74029-1, 3040-3 ####[facility] [employer] LABCLIA [id number] [place] [address] [place] ALP [Catalytic activity/Vol] 149 U/L High 38-113 [facility] Comment on above: Order Comment: Speci men Type: BLOOD SPECIMENOrdering Facility: [facility] Address: [address] [place] [address] Performed By: #### 5 643-2, 49269-6, 3040-3 ####[facility] Robert Applebaum MD LABCLIA [id number] [place] [address] [place] ALT [Catalytic activity/Vol] 200 U/L High 10-54 [facility] Comment on above: Order Comment: Speci men Type: BLOOD SPECIMENOrdering Facility: [facility] Address: [address] [place] [address] Performed By: #### 5 643-2, 57300-2, 3040-3 ####VANCEMAYURI [facility] GREEN LABCLIA [id number] [place] [address] [place] Anion gap [Moles/Vol] 11 mmol/L Normal 8-15 [facility] Comment on above: Order Comment: Speci men Type: BLOOD SPECIMENOrdering Facility: [facility] Address: [address] [place] [address] Performed By: #### 5 643-2, 77185-3, 0-3 ####[facility] [employer] LABCLIA [id number] [address] [place] AST [Catalytic activity/Vol] 187 U/L High 14-40 [facility] Comment on above: Order Comment: Speci men Type: BLOOD SPECIMENOrdering Facility: [facility] Address: [address] [place] [address] Performed By: #### 5 643-2, 36317-7, 3039-3 ####PAMAYURI [facility] [employer] LABCLIA [id number] [place] [address] [place] Bilirubin [Mass/Vol] 1.5 mg/dL High 0.2-1.3 [facility] Comment on above: Order Comment: Speci men Type: BLOOD SPECIMENOrdering Facility: [facility] Address: [address] [place] [address] Result Comment: Use of this assay is not recommended for patients undergoing treatment with eltrombopag due to the potential for falsely elevated results. Performed By: #### 5 643-2, 11396-8, 0-3 ####C[facility]RT [employer] GREEN LABCLIA [id number] [place] [address] [place] Calcium [Mass/Vol] 9.9 mg/dL Normal 8.5-10.2 [facility] Comment on above: Order Comment: Speci men Type: BLOOD SPECIMENOrdering Facility: [facility] Address: [address] [place] [address] Performed By: #### 5 643-2, 31266-0, 3040-3 ####[facility] [employer] LABCLIA [id number] [place] [address] [place] Chloride [Moles/Vol] 101 mmol/L Normal 98-107 [facility] Comment on above: Order Comment: Speci men Type: BLOOD SPECIMENOrdering Facility: [facility] Address: [address] [place] [address] Performed By: #### 5 643-2, 68423-4, 3040-3 ####[facility] LABCLIA [id number] [place] [address] [place] CO2 [Moles/Vol] 23 mmol/L Normal 22-30 [facility] Comment on above: Order Comment: Speci men Type: BLOOD SPECIMENOrdering Facility: [facility] Address: [address] [place] [address] Performed By: #### 5 643-2, 28923-7, 3040-3 ####[facility] [employer] LABCLIA [id number] [place] [address] [place] Creatinine [Mass/Vol] 0.67 mg/dL Low 0.73-1.22 [facility] Comment on above: Order Comment: Speci men Type: BLOOD SPECIMENOrdering Facility: [facility] Address: [address] [place] [address] Result Comment: Use of this assay is not recommended for patients undergoing treatment with phenindione, due to the potential for falsely depressed results. Performed By: #### 5 643-2, 29659-2, 3040-3 ####[facility] [id number] [place] [address] [place] Creatinine and Glomerular filtration rate.predicted panel (S/P/Bld) 123 mL/min/1.73m??? Normal >=60 [facility] Comment on above: Order Comment: Lakshmi espinoza Type: BLOOD SPECIMENOrdering Facility: [facility] Address: [address] [place] [address] Result Comment: Oliva mated Glomerular Filtration Rate [...] actual GFR. Performed By: #### 5 643-2, 88746-5, 3040-3 ####[facility] [id number] [place] [address] [place] Glucose [Mass/Vol] 113 mg/dL High 74-99 [facility] Comment on above: Order Comment: Lakshmi espinoza Type: BLOOD SPECIMENOrdering Facility: [facility] Address: [address] [place] [address] Result Comment: The [place] [employer] (ADA) provides guidance for cutoff [...] Standards of Medical Care in Diabetes 2016, [place] [employer]. Diabetes Care. 2016.39(Suppl 1). Performed By: #### 5 643-2, 05924-4, 3040-3 ####[facility] Robert Applebaum MD LABIA [id number] [place] [address] [place] Potassium [Moles/Vol] 4.2 mmol/L Normal 3.7-5.1 [facility] Comment on above: Order Comment: Speci men Type: BLOOD SPECIMENOrdering Facility: [facility] Address: [address] [place] [address] Performed By: #### 5 643-2, 63820-5, 3040-3 ####COURT Robert Applebaum MD LABCLIA [id number] [place] [address] [place] Protein [Mass/Vol] 8.2 g/dL High 6.3-8.0 [facility] Comment on above: Order Comment: Speci men Type: BLOOD SPECIMENOrdering Facility: [facility] Address: [address] [place] [address] Performed By: #### 5 643-2, 20241-8, 0-3 ####[facility] [employer] LABCLIA [id number] [place] [address] [place] Sodium [Moles/Vol] 135 mmol/L Low 136-144 [facility] Comment on above: Order Comment: Speci men Type: BLOOD SPECIMENOrdering Facility: [facility] Address: [address] [place] [address] Performed By: #### 5 643-2, 38790-0, 0-3 ####[facility] Robert Applebaum MD LABCLIA [id number] [place] [address] [place] Urea nitrogen [Mass/Vol] 7 mg/dL Low 9-24 [facility] Comment on above: Order Comment: Speci men Type: BLOOD SPECIMENOrdering Facility: [facility] Address: [address] [place] [address] Performed By: #### 5 643-2, 65239-2, 0-3 ####bulletn.MAY[facility] Robert Applebaum MD LABCLIA [id number] [place] [address] [place] ED NOTEon 12-22-2023 ED NOTE HNO ID: [id number] Author: WANDA HODGSON, JOSE GUADALUPE Service: Emergency Medicine Author Type: Registered Nurse Type: ED Notes Filed: 12/22/2023 13:29 Note Text: States pain started last night, middle upper abdomen; worse with laying down. Admits to hx pancreatitis; states feels the same as the last time he had a flare up of pancreatitis. Normal [facility] ED NOTE HNO ID: [id number] Author: EDWIGE PERALES, JOSE GUADALUPE Service: Emergency Medicine Author Type: Registered Nurse Type: ED Notes Filed: 12/22/2023 12:31 Note Text: Patient began with abdominal pain last night. Pt states he has been vomiting with abdominal pain . Normal [facility] ED PROV NOTEon 12-22-2023 ED PROV NOTE HNO ID: [id number] Author: HITESH GARZA DO Service: Emergency Medicine [...] the hospital for about 11 days at [facility]. He states he has not had [...] i (more content not included)... Normal [facility] Ethanol SerPl-mCncon 024 Ethanol [Mass/Vol] mg/dL Normal <11 [facility] Comment on above: Order Comment: Lakshmi espinoza Type: BLOOD SPECIMEN [facility] Address: [address] [place] [address] Performed By: #### 5 643-2, 04490-6, 3040-3 #### [facility] CLIA [id number] STATES OF [facility] Lipase SerPl-cCncon 12-22-19 24 Lipase [Catalytic activity/Vol] 70 U/L High 16-61 [facility] Comment on above: Order Comment: Lakshmi espinoza Type: BLOOD SPECIMENOrdering Facility: [facility] Address: [address] [place] [address] Performed By: #### 5 643-2, 22040-4, 3040-3 ####[facility] Robert Applebaum MD LABCLIA [id number] [place] [address] [place] No Panel InformationOrdered By: Mukund Tracy on 12-17-2023 Case Report Surgical Pathology Case: [id number] Authorizing Provider: Hari Kline MD Collected: 12/14/2023 1350 Ordering Location: [facility] Endoscopy Received: 12/14/2023 1450 Pathologist: Mukund Tracy Jr., MD Specimens: A) - Gastric Antrum, gastritis, r/o h. pylori B) - Esophagus, Distal, esophagitis [employer]ownce Phone: Clinical Information a4lpbHHxLPIuaWXeEOz wM1x laxAxPABfcXWaF9RjedwzAB phEU1vAQ6dvKusbNRcdNOlG BUoPaFlo7byj357kXNhc5hm JFOMFIknYYBWTXw5nGuoU85 nx7K3RetaM1hoVWKuREqvQL VdLPioyPFnBWd9YQTwmCAnr iAcMhNtMLUwfPYqtZT0ELVd UH4qqmjsLFszNYdeUTFuezD 5RMIraCWnM0QeNWWzNR1mfg ycLOV6VZxaMYKoWRE4TuIbX PBsi6Sxixj7TcBsmQUsZUce bGFpblxmczIwXGNmMSBIZW1 zrIYrFHAaqnZbLgA5dayam6 xiJGB5eU9xt6a6TQ2qHvnqN zRfH2oWXC3iFQ8ZGD7fQ9Bz ICBccGFyfQ== [employer] Phone: Disclaimer c6ebcYErNVBrdDZjGfPc MDA iDEQln1chFWVahNYpDfLxRt NcZnRuYmpcdWMxXGRlZmYwe 4stn524lIMhy1rkRPZhMcU9 dJBjSHVdY69qBARWC926OOK yQNwwi1zyt2QkJAQffNKjp8 G5AONOFPmaMTRGSSz4pKpmA 82qq2F4JbxaH6kzSLGoPNJl T3YmQK1qYOScBes9WTN7ENP 1HUZxRFZbP2HmYR5mDVGizV ZsGVh0z8ivnBgvWVMgLJJ8m 3gcBPrtdxYqKQ4hbc8tnYz4 m5ayjeZwUGNzRCXgpVDXFVC oO2XalDhvIc8hyQl9hLhiDp whKJG1Gvm0SK2xip58tzb6h XwaYIFpfkpeLxY2FUgnFCIv pbceURz3OVdbOICqcBG2QFN zcXFcM9YmLOLeBK1ufuv8BA T3MYccQCHgDfS5TGCouAOcT KXlyZkjLSepp174VVT8OySe IM0aK0Rvy4Z5sH2mxFYbEBU kvOPbYcVdYGMjtr3onKTqEP raa8FjPXS5prY7bCYziVAlI YQbTV90Bfzkf0PfViikGYM8 ILQujeUun3Tgf2tpViXjcnN xM8naM7RqQTBxTREeHJXkCc JvqeQcp3Dmh4FfbXAekCs5i 3lvOGUtODKbhIctj6btBFK9 WEFlJ3I6hKVgd7dbHZxaVBK wzMP2qyA5YVIqjYTvG0ModT 0pVPMnBH5ppcu6c4qyVUC6K SpmSKVaXwP0fdD6PCIswVIm UVWnoXdkYEbva320NZX4BtC uKXSuf3ArI4YjgKcxD69odL dyW56gSWFstYyxsX3pyPxjs H9uYfFxAnPoIZevxOuayMZs tacdCMfrzsV4PDnmjcgzTMC fPAofQ9gtUyHlGWYatBpeTN poq9YcWNRlBPFmSFQvBPsaA 8twqE0ozrnyJXvqWMHspWcv a2koCoAkjTY4ZO6qvfAqKMI mbGbkzkR6kfXioKoblK3qjH 8pcNnwzX2jnDSzdEL1srlcZ GluIHNpdHUgaHlicmlkaXph vZdzqrczhM0mDXQ5wTAsQDT 3vFPtMNOuZRCpPYPcjO75zs 3zwAUgzeYwR9PgO0BcsTOno GomUicdzADomIOrAf7noZSo UA7vVFJzaHInQ4XdUZ3yMMY hclxwYXIgVGhlIHVzZSBvZi MaxmStj9VwrA5bTKNmUELnX Q01mjNkrrR1lFCdHMNjslOg dGVzdHMgaXMgcmVndWxhdGV tTTWfYXHvEHUkGTh6rWSqj0 XnA4mhaUAdszYuU7LjpSCwF KTRIY9wNBjys7AbpGSgsYZd o2DnBMHcAMYaxA8iLNIuBO4 vCEGsZZxbXBQokxWtlp7jkw QbQTPaZNTxI3SjktwffSzmr xNbMNSkhl0nrkAkMXR4SNKk ZSBjbGluaWNhbCBsYWJvcmF 4j7FrDRSbr8TbY8TzkYZaJE AlyHXmZCB1r7UrnZ1uIJwsi FHsOIRxCA3wlSJdOTDsTLWl ZWFyZWQgYnkgdGhlIFVTIEZ zt7HkYH4oRIAodPnnCNWjtW 7gv0SjSTEwl43nQLRXXMijS FRoZSBGREEgaGFzIGRldGVy bWluZWQgdGhhdCBzdWNoIGN pEIHoOF0sWLKipqEfmJJju2 UjdRQccqQie8UtpjMnSSHmX CP5CyLgbGPqJHOsgpDHwUwj qF8joG8lv0ImsH9qKKzuhlY foTBlRc6ouKTrMJ5pELYsnl FmZmluIGVtYmVkZGVkIHRpc 0M2GV6zWLHkwf6ykvsdlZEg sG4kkRVmwhPiIK7kTX5bK9I 9xPFrOCMuysZlf0juGAh0aN JjTPTpfRKpbFBlEqluOAU9S MLfONN7jcKomvIvZBQqeMtf xIP2lEWhLFZiGQTiYGIcPV4 7M7Vvy0UmO2biBW00PUQeTG YbXLCmxaYxm1tqTTQhk1ydN JCxlRNjS0EbFVNreJAexnfi MbKjVUN1DXAgFOW5wDUqKVY tB9SrpFRfcBGqoK80GW3irV J4EE3yZEN1RDzukI1aNkSYq Y05by9yyNS4r6VnCM3rU9Lw ZVCwl7I3jhHbVXJvZP3ieYD iZWVuIHZhbGlkYXRlZCBvbi ZiMEVxfZRhPbueDNO6tZGbo SIwErBAUOO0bECbATIwr5Sj ZCBiZSBpbnRlcnByZXRlZCB 8bJMnPITfeZYyp51hQ1e3FS 5mlHxbMXMvvBOpNTFvu6Hsn LIvhXk1wVDzToBhCHfvEZKz DDytlWm5sEQ1SC1dCBQxC0C qN9vaoVDiRBBiYKLrdYAggy 5ccGFyfQ== [facility] Work Phone: Gross Description d1qdkCHnQPWqnPDjAXpw M1x haoWdFVXwdGWxX7AxhehnKR quGA5aZS7qzNuynIOceCQxT BMqDcYxx2uzu551pEQuh8os LCEOCSxcAGWBZHm8cJjqJ00 yw3B5WryvE16tiRLnITR3XM JiIWJbwXQkZWXeJEJ2HSZkb UWoZ7khGFEcKC7pyfhbTDss OGbbJULeyIC3OSAwpUHhZ2K eNSLpKSkvABNqxdt6VcJqEw 9vdGVyeTcyMFxwYXJkXHBsY TxzWMMnNrVgQK4izXFtDCGb N2LsxiHvHEzyDIUjsv0cgRn uIGxhYmVsZWQgICJhbnRydW 0xRXRrXMC5myB6YQ3gbDmuz rV5fAPtgTAyXnNcQ07dokRt BUFsQUEaqLObh9EpHGNpOlU oCH7fPTZbD71xFCOIwJLtu9 XgT8vvDS7ebMQxDM98iFLjg Ddym5OnpYh6wBMeEIilIG9c BYHpOJPdGGD0FH9djNHiXGB lajOVWkf7STRiNyItBDc6SS CuvZ0aYt3qcSDhwG6prWNcU TtnLVBnElRye5DfqUUav85c uHDomIJeJIGcKHJ0cBQvICQ 9CB5zwQrnkbN9pIHfjPVwOf KwH16ruzZlICBlkagddrppb H4dg4q2DAOqqi5zJWXmNjDc MHDbWBCcoZ7oFNQbXAWxdVV khK4qwzNwxnLmwqSnmiJzoJ DepPEpsLK9BQDoiC1ee48jQ JXas4IwgXDfXeZwQOKrrk3= [employer] Work Phone: Pathologist Interpretation Location [facility], [address] [place] [address], [facility] [address], CLIA: [id number]; Joint Commission: HCO [id number]; CAP: [id number] [employer]ownce Phone: Pathology report final diagnosis Narrative i1rznPPuDLMmlWUtGStvO9q berGrXFCotZZmE4UwwrqeAZ bsJS3pGF4ldCsyfDXolOLlJ THwXoFoh1wzk248nOHav5mx PMDVMBfqLZZSFRp9wUxlK79 jl3A5GzzcN23zlDDcVQA7UY CrMVNznFOrOMEbADZ9VQPui TJjB2rkQWLjBS5rraxqJUhc HYqgTCUunML5CDCbnCIuV1D fMTTwZGvhSKFzien7OtUoTg 9vdGVyeTcyMFxwYXJkXHBsY VutFKAlKdHwWN3eDIFKA10N S1wbZMYRFLPLAVqhTgkUTDG ZXGVuZGFzaCBNSUxEIFRPIE 3FZSFSACPQFXPHMw1EEVXyY XlSOQJGBPLIVEdWU3LBLLUS YjLPKpLeAJ3GRKDGIX1GFPE HEKFCEWnPQ2jKCTOguxxxCV HeD77mxMNlpUqlFB4lzV2sf K4gaVswrZ4doAFxpOJtgWSk oVXwxeXke3StYBDauDEhBlK gwIDwMMM3eM0qfSTvvxVgED xvrZd1EV8jEKIsIRiazLPsz 7zsd8LtQ5zhaBrtEEqjc3Xb xI0sEv6iVTD0SgClfpHvZCk bgLl0YN1oUL3qM4U5eASiNW WrndKqwHQhpNMywALge2Cnc XGtoWjeIQ4vfK4szUBoIKXf jeTBFfPqEGEUAFqFC7WWJLE WUQDKMZqlVMAGS0VSVHuquo Kiu4ziV6VJNI4ERNErODVQR 1NBIFdJVEggRVBJVEhFTElB HDJGQCHQGzRRTA2SECMLXHA ME4DYASXREoEAYD2EUZTWD6 4cgQDaKVFheyZUh76nVG24Q uMClN40lm7qkQS7j3GxLB5q E3FgZXK0MDadavVxp1AqIFE KXWCvFH7gYAhVNk7zWIKzAU EpGRaqeXu9RS1iFWNISoNlt UEzqmJaJj4uZUK5kraksXNu rjoxwjmphIIuNAFwTV6pH2C 0aXZlLiAgTmVnYXRpdmUgZm 1bDTpehDFriPskKEtagBM2P IYzEZPsDDnxOZntnCquv7li RTZznhPaKQquX88rgvA3Dos wYXJ9 [facility] Work Phone: [facility] [employer] Work Phone: Hemoglobin (Bld) [Mass/Vol]o n 12-16-2023 Hematocrit (Bld) [Volume fraction] 37.4 % Low 40.0 - 52.0 % [facility] Interpretation and review of laboratory results Abnormal [facility] Hepatic function 2000 panelo n 12-16-2023 Albumin [Mass/Vol] 3.9 g/dL 3.5 - 5.0 g/dL [facility] ALP [Catalytic activity/Vol] 111 U/L 38 - 126 U/L [facility] ALT [Catalytic activity/Vol] 80 U/L High 0 - 49 U/L [facility] AST [Catalytic activity/Vol] 84 U/L High 15 - 46 U/L [facility] Bilirubin [Mass/Vol] 1 mg/dL 0.2 - 1 .3 mg/dL [facility] Bilirubin.conjugated [Mass/Vol] 0 mg/dL 0.0 - 0.3 mg/dL [facility] Interpretation and review of laboratory results Abnormal [facility] Protein [Mass/Vol] 6.7 g/dL 6.3 - 8.2 g/dL [facility] Laboratory - Hematology and Cell countson 12-16-2023 Hemoglobin (Bld) [Mass/Vol] 12.1 g/dL Low 13.0 - 18.0 g/dL [facility] CBC panel Auto (Bld)Ordered By: Bandar Joe on 12-15-2023 Erythrocyte distribution width (RBC) [Ratio] 13.9 % 11.5 - 15.0 % [facility] Hematocrit (Bld) [Volume fraction] 34.1 % Low 40.0 - 52.0 % [facility] Hemoglobin (Bld) [Mass/Vol] 11.3 g/dL Low 13.0 - 18.0 g/dL [facility] Interpretation and review of laboratory results Abnormal [facility] MCH (RBC) [Entitic mass] 31 pg 26.0 - 34.0 pg [facility] MCHC (RBC) [Mass/Vol] 33.1 % 30.5 - 36.0 % [facility] MCV (RBC) [Entitic vol] 93.4 fL 77.0 - 99.0 fL [facility] Platelet mean volume (Bld) [Entitic vol] 10.1 fL 9.0 - 12.7 fL [facility] Platelets (Bld) [#/Vol] 246 10*3/uL 140 - 440 10*3/uL [facility] RBC (Bld) [#/Vol] 3.65 10*6/uL Low 4.40 - 5.9 0 10*6/uL [facility] WBC (Bld) [#/Vol] 3.9 10*3/uL 3.6 - 10.7 10*3/uL [facility] Comprehensive metabolic 1998 panelOrdered By: Megha Lopez on 12-15-2023 Albumin [Mass/Vol] 3.7 g/dL 3.5 - 5.0 g/dL [facility] ALP [Catalytic activity/Vol] 116 U/L 38 - 126 U/L [facility] ALT [Catalytic activity/Vol] 81 U/L High 0 - 49 U/L [facility] Anion gap [Moles/Vol] 10 mmol/L 3 - 13 mmol/L [facility] AST [Catalytic activity/Vol] 70 U/L High 15 - 46 U/L [facility] Bilirubin [Mass/Vol] 1.3 mg/dL 0.2 - 1 .3 mg/dL [facility] Calcium [Mass/Vol] 9.1 mg/dL 8.4 - 10. 4 mg/dL [facility] Chloride [Moles/Vol] 104 mmol/L 98 - 10 7 mmol/L [facility] CO2 [Moles/Vol] 22 mmol/L 22 - 30 mmol/L [facility] Creatinine [Mass/Vol] 0.61 mg/dL Low 0.66 - 1.25 mg/dL [facility] GFR/1.73 sq M.predicted (S/P/Bld) [Vol rate/Area] - PINF [facility] Comment on above: Calculation based on the Chronic Kidney Disease Epidemiology Collaboration (CKD-EPI) equation refit without adjustment for race Glucose [Mass/Vol] 101 mg/dL High 70 - 100 mg/dL [facility] Interpretation and review of laboratory results Abnormal [facility] Potassium [Moles/Vol] 3.5 mmol/L 3.5 - 5.1 mmol/L [facility] Protein [Mass/Vol] 6.5 g/dL 6.3 - 8.2 g/dL [facility] Sodium [Moles/Vol] 136 mmol/L 135 - 145 mmol/L [facility] Urea nitrogen [Mass/Vol] 4 mg/dL Low 9 - 20 mg/dL [facility] Hemoglobin (Bld) [Mass/Vol]o n 12-14-2023 Hematocrit (Bld) [Volume fraction] 38.1 % Low 40.0 - 52.0 % [facility] Interpretation and review of laboratory results Abnormal [facility] Laboratory - Hematology and Cell countson 12-14-2023 Hemoglobin (Bld) [Mass/Vol] 12.6 g/dL Low 13.0 - 18.0 g/dL [facility] XR Chest Single viewon 12-13 Lungs clear with no acute infiltrate or effusion. Report Dictated on Electronically Signed By: Argelia Mathias MD Electronically Signed Date/Time: 12/14/2023 10:04 AM [facility] [employer] Patient Name: RORO CLAIRE : 1985 Exam [...] VASCULARITY: Normal BONES:Unremarkable SUPPORT LINES: None OTHER: [facility] [employer] Alyse Mathias MD - 12/14/2023 Patient Name: RORO VALDIVIA : 1985 [facility]#: [id number] Exam Date/Time: 12/14/2023 09:59 Procedure: XR CHEST [...] Electronically Signed Date/Time: 12/14/2023 10:04 AM EST [facility] Radiology Study observation (narrative) [facility] XR Chest Single viewOrdered By: Alyse Mathias on 12-14-2023 [facility] Work Phone: Basic metabolic 1998 panelon 12-13-2023 Anion gap [Moles/Vol] 16 mmol/L High 3 - 13 mmol/L [facility] Calcium [Mass/Vol] 8.9 mg/dL 8.4 - 10. 4 mg/dL [facility] Chloride [Moles/Vol] 106 mmol/L 98 - 10 7 mmol/L [facility] CO2 [Moles/Vol] 22 mmol/L 22 - 30 mmol/L [facility] Creatinine [Mass/Vol] 0.71 mg/dL 0.66 - 1.25 mg/dL [facility] GFR/1.73 sq M.predicted (S/P/Bld) [Vol rate/Area] - PINF [facility] Comment on above: Calculation based on the Chronic Kidney Disease Epidemiology Collaboration (CKD-EPI) equation refit without adjustment for race Glucose [Mass/Vol] 110 mg/dL High 70 - 100 mg/dL [facility] Interpretation and review of laboratory results Abnormal [facility] Potassium [Moles/Vol] 3.9 mmol/L 3.5 - 5.1 mmol/L [facility] Sodium [Moles/Vol] 145 mmol/L 135 - 145 mmol/L [facility] Urea nitrogen [Mass/Vol] 6 mg/dL Low 9 - 20 mg/dL [facility] CBC W Auto Differential pane l (Bld)Ordered By: Brianda Feliciano on 12-13-2023 Erythrocyte distribution width (RBC) [Ratio] 14.4 % 11.5 - 15.0 % [facility] Hematocrit (Bld) [Volume fraction] 43.7 % 40.0 - 52.0 % [facility] Hemoglobin (Bld) [Mass/Vol] 14.3 g/dL 13.0 - 18.0 g/dL [facility] Interpretation and review of laboratory results Abnormal [facility] MCH (RBC) [Entitic mass] 30.8 pg 26.0 - 34.0 pg [facility] MCHC (RBC) [Mass/Vol] 32.7 % 30.5 - 36.0 % [facility] MCV (RBC) [Entitic vol] 94 fL 77.0 - 99.0 fL [facility] Platelet mean volume (Bld) [Entitic vol] 10.2 fL 9.0 - 12.7 fL [facility] Platelets (Bld) [#/Vol] 423 10*3/uL 140 - 440 10*3/uL [facility] RBC (Bld) [#/Vol] 4.65 10*6/uL 4.40 - 5.9 0 10*6/uL [facility] WBC (Bld) [#/Vol] 12.1 10*3/uL High 3.6 - 10.7 10*3/uL [facility] Comprehensive metabolic 1998 panelon 12-13-2023 Albumin [Mass/Vol] 4.9 g/dL 3.5 - 5.0 g/dL [facility] ALP [Catalytic activity/Vol] 171 U/L High 38 - 126 U/L [facility] ALT [Catalytic activity/Vol] 141 U/L High 0 - 49 U/L [facility] Anion gap [Moles/Vol] 23 mmol/L High 3 - 13 mmol/L [facility] AST [Catalytic activity/Vol] 186 U/L High 15 - 46 U/L [facility] Bilirubin [Mass/Vol] 0.9 mg/dL 0.2 - 1 .3 mg/dL [facility] Calcium [Mass/Vol] 9.5 mg/dL 8.4 - 10. 4 mg/dL [facility] Chloride [Moles/Vol] 103 mmol/L 98 - 10 7 mmol/L [facility] CO2 [Moles/Vol] 20 mmol/L Low 22 - 30 mmol/L [facility] Creatinine [Mass/Vol] 0.6 mg/dL Low 0.66 - 1.25 mg/dL [facility] GFR/1.73 sq M.predicted (S/P/Bld) [Vol rate/Area] - PINF [facility] Comment on above: Calculation based on the Chronic Kidney Disease Epidemiology Collaboration (CKD-EPI) equation refit without adjustment for race Glucose [Mass/Vol] 116 mg/dL High 70 - 100 mg/dL [facility] Interpretation and review of laboratory results Abnormal [facility] Potassium [Moles/Vol] 4 mmol/L 3.5 - 5.1 mmol/L [facility] Protein [Mass/Vol] 8.3 g/dL High 6.3 - 8.2 g/dL [facility] Sodium [Moles/Vol] 145 mmol/L 135 - 145 mmol/L [facility] Urea nitrogen [Mass/Vol] 5 mg/dL Low 9 - 20 mg/dL [facility] Ethanol (Bld) [Mass/Vol]Orde red By: Dari Paul on 12-13-2023 Ethanol [Mass/Vol] 0.435 g/dL Critically high 0.000 - 0.010 g/dL [facility] Interpretation and review of laboratory results Abnormal [facility] Laboratory - Chemistry and C hemistry - challengeon 12-13-2023 Lipase [Catalytic activity/Vol] 78 U/L 23 - 300 U/L [facility] Laboratory - Drug toxicology Ordered By: Casey Sloan on 12-13-2023 Amphetamines Screen method >1000 ng/mL Ql (U) Negative [facility] Barbiturates Screen method >200 ng/mL Ql (U) Negative [facility] Benzodiazepines Ql (U) Negative [facility] Methadone Screen Ql (U) Negative S [facility] Opiates Screen Ql (U) Negative [facility] oxyCODONE Ql (U) Negative [facility] Phencyclidine Ql (U) Negative [facility] Laboratory - Microbiology an d Antimicrobial susceptibilityOrdered By: Lisa England on 12-13-2023 SARS-CoV-2 (COVID-19) Ag IA.rapid Ql (Resp) Negative Negative [facility] Comment on above: A negative result do es not rule out the possibility of SARS-CoV-2 infection. NAAT-based methods should be considered for symptomatic patients presenting greater than seven days after onset of symptoms. Method: Lateral flow immunoassay. Fact sheets for healthcare providers and patients can be found at the following sites: https://www.[place].gov/media/656382/download https://www.[place].gov/media/247518/download Lipase [Catalytic activity/V ol]on 12-13-2023 Interpretation and review of laboratory results Normal [facility] [employer] [facility] [employer] Manual differential performe d Ql (Bld)Ordered By: Maria Isabel Auguste on 12-13-2023 Basophils (Bld) [#/Vol] 0.1 10*3/uL 0.0 - 0.2 10*3/uL [facility] [employer] Basophils Manual 1 [facility] [employer] Basophils/100 WBC (Bld) 1 % 0 - 2 % [facility] [employer] Cells Counted Total (Bld) [#] 100 {cells} [facility] [employer] Differential Method Manual differential performed [facility] [employer] Interpretation and review of laboratory results Abnormal [facility] [employer] Leukocyte morphology finding Nom (Bld) Normal [facility] [employer] Lymphocytes (Bld) [#/Vol] 8.1 10*3/uL High 1.0 - 4.3 10*3/uL [facility] [employer] Lymphocytes Manual 67 [facility] [employer] Lymphocytes/100 WBC (Bld) 67 % High 15 - 45 % [facility] [employer] Monocytes (Bld) [#/Vol] 0.4 10*3/uL 0.0 - 0.9 10*3/uL [facility] [employer] Monocytes Manual 3 [facility] [employer] Monocytes/100 WBC (Bld) 3 % Low 5 - 13 % [facility] [employer] Neutrophils (Bld) [#/Vol] 3.5 10*3/uL 1.8 - 7.0 10*3/uL [facility] [employer] Neutrophils Manual 29 [facility] [employer] Platelet morphology finding Nom (Bld) Normal [facility] [employer] RBC morphology finding Nom (Bld) Normal [facility] [employer] Segmented neutrophils/100 WBC (Bld) 29 % Low 38 - 82 % [facility] [employer] WBC corrected for nucl RBC (Bld) [#/Vol] 12.1 10*3/uL High 3.6 - 10.7 10*3/uL [facility] [employer] [facility] [employer] No Panel Informationon 12-12 P [place] 53 degrees [facility] [employer] [place] Interval 148 ms [facility] QRS [place] -11 degrees [facility] QRSD Interval 97 ms [facility] QT Interval 373 ms [facility] QTC Interval 459 ms [facility] T Wave [place] -5 degrees [facility] Sinus rhythm LVH by voltage Borderline T abnormalities, inferior leads Electronically Signed On 12-13-2023 13:12:41 EST by Idris Danielson CV Idris Galvan MD - 12/13/2023 IMPRESSION: Sinus rhythm LVH by voltage Borderline T abnormalities, inferior leads Electronically Signed On 12-13-2023 13:12:41 EST by Idris Danielson [facility] No Panel InformationOrdered By: Casey Sloan on 12-13-2023 COCAINE METAB. SCREEN Negative [facility] The expected value f or all [...] is needed, request confirmation under separate order. [facility] SARS-CoV-2 (COVID-19) Ag IA. rapid Ql (Resp)Ordered By: Lisa England on 12-13-2023 Interpretation and review of laboratory results Normal [facility] Urinalysis complete panel (U )on 12-13-2023 Bacteria LM.HPF (Urine sed) [#/Area] Few Abnormal Negative /HPF [facility] Bilirubin Ql (U) Negative Negative mg/dL [facility] Clarity (U) Clear Clear [facility] Color (U) Light Yellow Lt. Yellow [facility] Epithelial cells.squamous LM.HPF (Urine sed) [#/Area] Negative [facility] Glucose Ql (U) Normal Normal (<70) mg/dL [facility] Hemoglobin Ql (U) 0.03 mg/dL Abnormal Negative [facility] Interpretation and review of laboratory results Abnormal [facility] Ketones (U) [Mass/Vol] Negative Negat chan mg/dL [facility] Leukocyte esterase Test strip Ql (U) Negative Negative Teofilo/uL [facility] Nitrite Ql (U) Negative Negative [facility] pH (U) 6.5 [pH] 5.0 - 8.0 pH [facility] Protein (U) [Mass/Vol] Negative Negat chan mg/dL [facility] RBC LM.HPF (Urine sed) [#/Area] 0-2 [facility] Specific gravity (U) [Rel density] 1.004 Low 1.005 - 1.030 [facility] Urobilinogen (U) [Mass/Vol] Normal Normal (0-1) mg/dL [facility] WBC LM.HPF (Urine sed) [#/Area] 0-2 [facility] Vital signson 12-13-2023 Heart rate 91 /min bpm [facility] CBC W Auto Differential pane l (Bld)on 11-28-2023 Basophils (Bld) [#/Vol] 0.1 10*3/uL 0.0 - 0.2 10*3/uL [facility] Basophils/100 WBC (Bld) 0.7 % 0.0 - 2.0 % [facility] Eosinophils (Bld) [#/Vol] 0.1 10*3/uL 0.0 - 0.5 10*3/uL [facility] Eosinophils/100 WBC (Bld) 1.2 % 0.0 - 6.0 % [facility] Erythrocyte distribution width (RBC) [Ratio] 16.0 % High 11.5 - 15.0 % [facility] Hematocrit (Bld) [Volume fraction] 35.1 % Low 40.0 - 52.0 % [facility] Hemoglobin (Bld) [Mass/Vol] 11.6 g/dL Low 13.0 - 18.0 g/dL [facility] Immature granulocytes (Bld) [#/Vol] 0.2 10*3/uL High NINF - 0.1 10*3/uL [facility] Immature granulocytes/100 WBC (Bld) 2.1 % High 0.0 - 2.0 % [facility] Interpretation and review of laboratory results Abnormal [facility] Lymphocytes (Bld) [#/Vol] 2.3 10*3/uL 1.0 - 4.3 10*3/uL [facility] Lymphocytes/100 WBC (Bld) 25.5 % 15.0 - 45.0 % [facility] MCH (RBC) [Entitic mass] 30.9 pg 26.0 - 34.0 pg [facility] MCHC (RBC) [Mass/Vol] 33.0 % 30.5 - 36.0 % [facility] MCV (RBC) [Entitic vol] 93.4 fL 77.0 - 99.0 fL [facility] Monocytes (Bld) [#/Vol] 0.6 10*3/uL 0.0 - 0.9 10*3/uL [facility] Monocytes/100 WBC (Bld) 6.9 % 5.0 - 13.0 % [facility] Neutrophils (Bld) [#/Vol] 5.6 10*3/uL 1.8 - 7.5 10*3/uL [facility] Neutrophils/100 WBC (Bld) 63.6 % 38.0 - 82.0 % [facility] Nucleated RBC/100 WBC (Bld) [Ratio] 0.0 % [facility] Platelet mean volume (Bld) [Entitic vol] 10.0 fL 9.0 - 12.7 fL [facility] Platelets (Bld) [#/Vol] 340 10*3/uL 140 - 440 10*3/uL [facility] RBC (Bld) [#/Vol] 3.76 10*6/uL Low 4.40 - 5.9 0 10*6/uL [facility] WBC (Bld) [#/Vol] 8.9 10*3/uL 3.6 - 10.7 10*3/uL [facility] Comprehensive metabolic 1998 panelon 11-28-2023 Albumin [Mass/Vol] 3.6 g/dL 3.5 - 5.0 g/dL [facility] ALP [Catalytic activity/Vol] 240 U/L High 38 - 126 U/L [facility] ALT [Catalytic activity/Vol] 218 U/L High 0 - 49 U/L [facility] Anion gap [Moles/Vol] 9 mmol/L 3 - 13 mmol/L [facility] AST [Catalytic activity/Vol] 236 U/L High 15 - 46 U/L [facility] Bilirubin [Mass/Vol] 1.3 mg/dL 0.2 - 1 .3 mg/dL [facility] Calcium [Mass/Vol] 8.6 mg/dL 8.4 - 10. 4 mg/dL [facility] Chloride [Moles/Vol] 104 mmol/L 98 - 10 7 mmol/L [facility] CO2 [Moles/Vol] 21 mmol/L Low 22 - 30 mmol/L [facility] Creatinine [Mass/Vol] 0.46 mg/dL Low 0.66 - 1.25 mg/dL [facility] GFR/1.73 sq M.predicted (S/P/Bld) [Vol rate/Area] - PINF [facility] Glucose [Mass/Vol] 129 mg/dL High 70 - 100 mg/dL [facility] Interpretation and review of laboratory results Abnormal [facility] Potassium [Moles/Vol] 3.9 mmol/L 3.5 - 5.1 mmol/L [facility] Protein [Mass/Vol] 6.8 g/dL 6.3 - 8.2 g/dL [facility] Sodium [Moles/Vol] 135 mmol/L 135 - 145 mmol/L [facility] Urea nitrogen [Mass/Vol] 5 mg/dL Low 9 - 20 mg/dL [facility] Hepatic function 2000 panelo n 11-28-2023 Albumin [Mass/Vol] 3.8 g/dL 3.5 - 5.0 g/dL [facility] ALP [Catalytic activity/Vol] 249 U/L High 38 - 126 U/L [facility] ALT [Catalytic activity/Vol] 231 U/L High 0 - 49 U/L [facility] AST [Catalytic activity/Vol] 240 U/L High 15 - 46 U/L [facility] Bilirubin [Mass/Vol] 1.3 mg/dL 0.2 - 1 .3 mg/dL [facility] Bilirubin.conjugated [Mass/Vol] 0.0 mg/dL 0.0 - 0.3 mg/dL [facility] Interpretation and review of laboratory results Abnormal [facility] Protein [Mass/Vol] 7.1 g/dL 6.3 - 8.2 g/dL [facility] Albumin [Mass/Vol] 3.3 g/dL Low 3.5 - 5.0 g/dL [facility] ALP [Catalytic activity/Vol] 262 U/L High 38 - 126 U/L [facility] ALT [Catalytic activity/Vol] 217 U/L High 0 - 49 U/L [facility] AST [Catalytic activity/Vol] 234 U/L High 15 - 46 U/L [facility] Bilirubin [Mass/Vol] 1.3 mg/dL 0.2 - 1 .3 mg/dL [facility] Bilirubin.conjugated [Mass/Vol] 0.0 mg/dL 0.0 - 0.3 mg/dL [facility] Interpretation and review of laboratory results Abnormal [facility] Protein [Mass/Vol] 6.6 g/dL 6.3 - 8.2 g/dL [facility] CBC W Auto Differential pane l (Bld)on 11-27-2023 Basophils (Bld) [#/Vol] 0.1 10*3/uL 0.0 - 0.2 10*3/uL [facility] Basophils/100 WBC (Bld) 0.6 % 0.0 - 2.0 % [facility] Eosinophils (Bld) [#/Vol] 0.1 10*3/uL 0.0 - 0.5 10*3/uL [facility] Eosinophils/100 WBC (Bld) 1.3 % 0.0 - 6.0 % [facility] Erythrocyte distribution width (RBC) [Ratio] 15.8 % High 11.5 - 15.0 % [facility] Hematocrit (Bld) [Volume fraction] 34.8 % Low 40.0 - 52.0 % [facility] Hemoglobin (Bld) [Mass/Vol] 11.6 g/dL Low 13.0 - 18.0 g/dL [facility] Immature granulocytes (Bld) [#/Vol] 0.4 10*3/uL High NINF - 0.1 10*3/uL [facility] Immature granulocytes/100 WBC (Bld) 4.6 % High 0.0 - 2.0 % [facility] Interpretation and review of laboratory results Abnormal [facility] Lymphocytes (Bld) [#/Vol] 2.0 10*3/uL 1.0 - 4.3 10*3/uL [facility] Lymphocytes/100 WBC (Bld) 23.4 % 15.0 - 45.0 % [facility] MCH (RBC) [Entitic mass] 30.9 pg 26.0 - 34.0 pg [facility] MCHC (RBC) [Mass/Vol] 33.3 % 30.5 - 36.0 % [facility] MCV (RBC) [Entitic vol] 92.6 fL 77.0 - 99.0 fL [facility] Monocytes (Bld) [#/Vol] 0.7 10*3/uL 0.0 - 0.9 10*3/uL [facility] Monocytes/100 WBC (Bld) 8.4 % 5.0 - 13.0 % [facility] Neutrophils (Bld) [#/Vol] 5.2 10*3/uL 1.8 - 7.5 10*3/uL [facility] Neutrophils/100 WBC (Bld) 61.7 % 38.0 - 82.0 % [facility] Nucleated RBC/100 WBC (Bld) [Ratio] 0.0 % [facility] Platelet mean volume (Bld) [Entitic vol] 10.0 fL 9.0 - 12.7 fL [facility] Platelets (Bld) [#/Vol] 325 10*3/uL 140 - 440 10*3/uL [facility] RBC (Bld) [#/Vol] 3.76 10*6/uL Low 4.40 - 5.9 0 10*6/uL [facility] WBC (Bld) [#/Vol] 8.5 10*3/uL 3.6 - 10.7 10*3/uL [facility] Comprehensive metabolic 1998 panelon 11-27-2023 Albumin [Mass/Vol] 3.8 g/dL 3.5 - 5.0 g/dL [facility] ALP [Catalytic activity/Vol] 271 U/L High 38 - 126 U/L [facility] ALT [Catalytic activity/Vol] 220 U/L High 0 - 49 U/L [facility] Anion gap [Moles/Vol] 9 mmol/L 3 - 13 mmol/L [facility] AST [Catalytic activity/Vol] 220 U/L High 15 - 46 U/L [facility] Bilirubin [Mass/Vol] 1.6 mg/dL High 0.2 - 1 .3 mg/dL [facility] Calcium [Mass/Vol] 8.9 mg/dL 8.4 - 10. 4 mg/dL [facility] Chloride [Moles/Vol] 101 mmol/L 98 - 10 7 mmol/L [facility] CO2 [Moles/Vol] 24 mmol/L 22 - 30 mmol/L [facility] Creatinine [Mass/Vol] 0.46 mg/dL Low 0.66 - 1.25 mg/dL [facility] GFR/1.73 sq M.predicted (S/P/Bld) [Vol rate/Area] - PINF [facility] Glucose [Mass/Vol] 111 mg/dL High 70 - 100 mg/dL [facility] Interpretation and review of laboratory results Abnormal [facility] Potassium [Moles/Vol] 3.6 mmol/L 3.5 - 5.1 mmol/L [facility] Protein [Mass/Vol] 7.1 g/dL 6.3 - 8.2 g/dL [facility] Sodium [Moles/Vol] 134 mmol/L Low 135 - 145 mmol/L [facility] Urea nitrogen [Mass/Vol] 7 mg/dL Low 9 - 20 mg/dL [facility] Hepatic function 2000 panelo n 11-27-2023 Albumin [Mass/Vol] 3.5 g/dL 3.5 - 5.0 g/dL [facility] ALP [Catalytic activity/Vol] 295 U/L High 38 - 126 U/L [facility] ALT [Catalytic activity/Vol] 226 U/L High 0 - 49 U/L [facility] AST [Catalytic activity/Vol] 220 U/L High 15 - 46 U/L [facility] Bilirubin [Mass/Vol] 1.5 mg/dL High 0.2 - 1 .3 mg/dL [facility] Bilirubin.conjugated [Mass/Vol] 0.0 mg/dL 0.0 - 0.3 mg/dL [facility] Interpretation and review of laboratory results Abnormal [facility] Protein [Mass/Vol] 7.0 g/dL 6.3 - 8.2 g/dL [facility] CBC W Auto Differential pane l (Bld)on 11-26-2023 Erythrocyte distribution width (RBC) [Ratio] 15.9 % High 11.5 - 15.0 % [facility] Hematocrit (Bld) [Volume fraction] 36.6 % Low 40.0 - 52.0 % [facility] Hemoglobin (Bld) [Mass/Vol] 12.2 g/dL Low 13.0 - 18.0 g/dL [facility] MCH (RBC) [Entitic mass] 31.0 pg 26.0 - 34.0 pg [facility] MCHC (RBC) [Mass/Vol] 33.3 % 30.5 - 36.0 % [facility] MCV (RBC) [Entitic vol] 93.1 fL 77.0 - 99.0 fL [facility] Platelet mean volume (Bld) [Entitic vol] 10.0 fL 9.0 - 12.7 fL [facility] Platelets (Bld) [#/Vol] 279 10*3/uL 140 - 440 10*3/uL [facility] RBC (Bld) [#/Vol] 3.93 10*6/uL Low 4.40 - 5.9 0 10*6/uL [facility] WBC (Bld) [#/Vol] 7.8 10*3/uL 3.6 - 10.7 10*3/uL [facility] Comprehensive metabolic 1998 panelon 11-26-2023 Albumin [Mass/Vol] 3.9 g/dL 3.5 - 5.0 g/dL [facility] ALP [Catalytic activity/Vol] 292 U/L High 38 - 126 U/L [facility] ALT [Catalytic activity/Vol] 232 U/L High 0 - 49 U/L [facility] Anion gap [Moles/Vol] 8 mmol/L 3 - 13 mmol/L [facility] AST [Catalytic activity/Vol] 285 U/L High 15 - 46 U/L [facility] Bilirubin [Mass/Vol] 2.1 mg/dL High 0.2 - 1 .3 mg/dL [facility] Calcium [Mass/Vol] 8.8 mg/dL 8.4 - 10. 4 mg/dL [facility] Chloride [Moles/Vol] 104 mmol/L 98 - 10 7 mmol/L [facility] CO2 [Moles/Vol] 23 mmol/L 22 - 30 mmol/L [facility] Creatinine [Mass/Vol] 0.45 mg/dL Low 0.66 - 1.25 mg/dL [facility] GFR/1.73 sq M.predicted (S/P/Bld) [Vol rate/Area] - PINF [facility] Glucose [Mass/Vol] 114 mg/dL High 70 - 100 mg/dL [facility] Interpretation and review of laboratory results Abnormal [facility] Potassium [Moles/Vol] 4.5 mmol/L 3.5 - 5.1 mmol/L [facility] Protein [Mass/Vol] 7.8 g/dL 6.3 - 8.2 g/dL [facility] Sodium [Moles/Vol] 135 mmol/L 135 - 145 mmol/L [facility] Urea nitrogen [Mass/Vol] 5 mg/dL Low 9 - 20 mg/dL [facility] Laboratory - Hematology and Cell countson 11-26-2023 Band form neutrophils (Bld) [#/Vol] 0.2 10*3/uL High NINF - 0.0 10*3/uL [facility] Band form neutrophils/100 WBC (Bld) 3 % High NINF - 0 % [facility] Eosinophils (Bld) [#/Vol] 0.1 10*3/uL 0.0 - 0.5 10*3/uL [facility] Eosinophils/100 WBC (Bld) 1 % 0 - 6 % [facility] Hypochromia Ql (Bld) Rare Abnormal (none) [facility] Lymphocytes (Bld) [#/Vol] 1.5 10*3/uL 1.0 - 4.3 10*3/uL [facility] Lymphocytes/100 WBC (Bld) 19 % 15 - 45 % [facility] Metamyelocytes (Bld) [#/Vol] 0.2 10*3/uL High NINF - 0.0 10*3/uL [facility] Metamyelocytes/100 WBC (Bld) 2 % High NINF - 0 % [facility] Monocytes (Bld) [#/Vol] 0.4 10*3/uL 0.0 - 0.9 10*3/uL [facility] Monocytes/100 WBC (Bld) 5 % 5 - 13 % [facility] Neutrophils (Bld) [#/Vol] 5.7 10*3/uL 1.8 - 7.5 10*3/uL [facility] Poikilocytosis LM Ql (Bld) Rare Abnormal (none) [facility] RBC morphology finding Nom (Bld) abnormal [facility] Segmented neutrophils/100 WBC (Bld) 70 % 38 - 82 % [facility] Stomatocytes LM Ql (Bld) Slight Abnormal (none) [facility] Target cells LM Ql (Bld) Rare Abnormal (none) [facility] No Panel Informationon 11-25 CV CPACS Bands Manual 3 [facility] Eosinophils Manual 1 0 - 1 [facility] Interpretation and review of laboratory results Abnormal [facility] Lymphocytes Manual 20 [facility] Metamyelocytes Manual 2 [facility] Monocytes Manual 5 [facility] Neutrophils Manual 72 [facility] CBC W Auto Differential pane l (Bld)on 11-25-2023 Erythrocyte distribution width (RBC) [Ratio] 15.9 % High 11.5 - 15.0 % [facility] Hematocrit (Bld) [Volume fraction] 35.7 % Low 40.0 - 52.0 % [facility] Hemoglobin (Bld) [Mass/Vol] 11.7 g/dL Low 13.0 - 18.0 g/dL [facility] MCH (RBC) [Entitic mass] 30.3 pg 26.0 - 34.0 pg [facility] MCHC (RBC) [Mass/Vol] 32.8 % 30.5 - 36.0 % [facility] MCV (RBC) [Entitic vol] 92.5 fL 77.0 - 99.0 fL [facility] Nucleated RBC/100 WBC (Bld) [Ratio] 0.0 % [facility] Platelet mean volume (Bld) [Entitic vol] 10.1 fL 9.0 - 12.7 fL [facility] Platelets (Bld) [#/Vol] 225 10*3/uL 140 - 440 10*3/uL [facility] RBC (Bld) [#/Vol] 3.86 10*6/uL Low 4.40 - 5.9 0 10*6/uL [facility] WBC (Bld) [#/Vol] 6.5 10*3/uL 3.6 - 10.7 10*3/uL [facility] Comprehensive metabolic 1998 panelon 11-25-2023 Albumin [Mass/Vol] 3.6 g/dL 3.5 - 5.0 g/dL [facility] ALP [Catalytic activity/Vol] 312 U/L High 38 - 126 U/L [facility] ALT [Catalytic activity/Vol] 175 U/L High 0 - 49 U/L [facility] Anion gap [Moles/Vol] 9 mmol/L 3 - 13 mmol/L [facility] AST [Catalytic activity/Vol] 258 U/L High 15 - 46 U/L [facility] Bilirubin [Mass/Vol] 2.3 mg/dL High 0.2 - 1 .3 mg/dL [facility] Calcium [Mass/Vol] 8.7 mg/dL 8.4 - 10. 4 mg/dL [facility] Chloride [Moles/Vol] 104 mmol/L 98 - 10 7 mmol/L [facility] CO2 [Moles/Vol] 24 mmol/L 22 - 30 mmol/L [facility] Creatinine [Mass/Vol] 0.47 mg/dL Low 0.66 - 1.25 mg/dL [facility] GFR/1.73 sq M.predicted (S/P/Bld) [Vol rate/Area] - PINF [facility] Glucose [Mass/Vol] 110 mg/dL High 70 - 100 mg/dL [facility] Interpretation and review of laboratory results Abnormal [facility] Potassium [Moles/Vol] 3.2 mmol/L Low 3.5 - 5.1 mmol/L [facility] Protein [Mass/Vol] 7.0 g/dL 6.3 - 8.2 g/dL [facility] Sodium [Moles/Vol] 137 mmol/L 135 - 145 mmol/L [facility] Urea nitrogen [Mass/Vol] 4 mg/dL Low 9 - 20 mg/dL [facility] Laboratory - Chemistry and C hemistry - challengeon 11-25-2023 Magnesium [Mass/Vol] 2.4 mg/dL High 1.6 - 2 .3 mg/dL [facility] Magnesium [Mass/Vol]on 11-24 Interpretation and review of laboratory results Abnormal [facility] Manual differential performe d Ql (Bld)on 11-25-2023 Anisocytosis Ql (Bld) Slight Abnormal (none) [facility] Atypical Lymphocytes Manual 6 [facility] Band form neutrophils (Bld) [#/Vol] 0.1 10*3/uL High NINF - 0.0 10*3/uL [facility] Band form neutrophils/100 WBC (Bld) 2 % High NINF - 0 % [facility] Bands Manual 2 [facility] Cells Counted Total (Bld) [#] 100 {cells} [facility] Differential Method Manual differential performed [facility] Leukocyte morphology finding Nom (Bld) Normal [facility] Lymphocytes (Bld) [#/Vol] 0.7 10*3/uL Low 1.0 - 4.3 10*3/uL [facility] Lymphocytes Manual 11 [facility] Lymphocytes/100 WBC (Bld) 11 % Low 15 - 45 % [facility] Metamyelocytes (Bld) [#/Vol] 0.1 10*3/uL High NINF - 0.0 10*3/uL [facility] Metamyelocytes Manual [address] [facility] Metamyelocytes/100 WBC (Bld) 1 % High NINF - 0 % [facility] Monocytes (Bld) [#/Vol] 0.7 10*3/uL 0.0 - 0.9 10*3/uL [facility] Monocytes Manual 11 [facility] Monocytes/100 WBC (Bld) 11 % 5 - 13 % [facility] Myelocytes (Bld) [#/Vol] 0.1 10*3/uL High NINF - 0.0 10*3/uL [facility] Myelocytes Manual 2 [facility] Myelocytes/100 WBC (Bld) 2 % High NINF - 0 % [facility] Neutrophils (Bld) [#/Vol] 4.5 10*3/uL 1.8 - 7.5 10*3/uL [facility] Neutrophils Manual 67 [facility] Ovalocytes LM Ql (Bld) Slight Abnormal (none) [facility] Platelet morphology finding Nom (Bld) Normal [facility] Poikilocytosis LM Ql (Bld) Moderate Abnormal (none) [facility] Segmented neutrophils/100 WBC (Bld) 67 % 38 - 82 % [facility] Stomatocytes LM Ql (Bld) Moderate Abnormal (none) [facility] Target cells LM Ql (Bld) Slight Abnormal (none) [facility] Variant lymphocytes (Bld) [#/Vol] 0.4 10*3/uL High NINF - 0.0 10*3/uL [facility] Variant lymphocytes/100 WBC (Bld) 6 % High NINF - 0 % [facility] WBC corrected for nucl RBC (Bld) [#/Vol] 6.5 10*3/uL 3.6 - 10.7 10*3/uL [facility] No Panel Informationon 11-24 Interpretation and review of laboratory results Abnormal [facility] CBC W Auto Differential pane l (Bld)Ordered By: Nigel Palmer on 11-24-2023 Erythrocyte distribution width (RBC) [Ratio] 15.9 % High 11.5 - 15.0 % [facility] Hematocrit (Bld) [Volume fraction] 36.8 % Low 40.0 - 52.0 % [facility] Hemoglobin (Bld) [Mass/Vol] 12.0 g/dL Low 13.0 - 18.0 g/dL [facility] MCH (RBC) [Entitic mass] 30.3 pg 26.0 - 34.0 pg [facility] MCHC (RBC) [Mass/Vol] 32.6 % 30.5 - 36.0 % [facility] MCV (RBC) [Entitic vol] 92.9 fL 77.0 - 99.0 fL [facility] Nucleated RBC/100 WBC (Bld) [Ratio] 0.0 % [facility] Platelet mean volume (Bld) [Entitic vol] 9.6 fL 9.0 - 12.7 fL [facility] Platelets (Bld) [#/Vol] 179 10*3/uL 140 - 440 10*3/uL [facility] RBC (Bld) [#/Vol] 3.96 10*6/uL Low 4.40 - 5.9 0 10*6/uL [facility] WBC (Bld) [#/Vol] 6.8 10*3/uL 3.6 - 10.7 10*3/uL [facility] Comprehensive metabolic 1998 panelon 11-24-2023 Albumin [Mass/Vol] 3.5 g/dL 3.5 - 5.0 g/dL [facility] ALP [Catalytic activity/Vol] 293 U/L High 38 - 126 U/L [facility] ALT [Catalytic activity/Vol] 121 U/L High 0 - 49 U/L [facility] Anion gap [Moles/Vol] 7 mmol/L 3 - 13 mmol/L [facility] AST [Catalytic activity/Vol] 195 U/L High 15 - 46 U/L [facility] Bilirubin [Mass/Vol] 2.8 mg/dL High 0.2 - 1 .3 mg/dL [facility] Calcium [Mass/Vol] 8.7 mg/dL 8.4 - 10. 4 mg/dL [facility] Chloride [Moles/Vol] 106 mmol/L 98 - 10 7 mmol/L [facility] CO2 [Moles/Vol] 23 mmol/L 22 - 30 mmol/L [facility] Creatinine [Mass/Vol] 0.51 mg/dL Low 0.66 - 1.25 mg/dL [facility] GFR/1.73 sq M.predicted (S/P/Bld) [Vol rate/Area] - PINF [facility] Glucose [Mass/Vol] 113 mg/dL High 70 - 100 mg/dL [facility] Interpretation and review of laboratory results Abnormal [facility] Potassium [Moles/Vol] 3.7 mmol/L 3.5 - 5.1 mmol/L [facility] Protein [Mass/Vol] 6.9 g/dL 6.3 - 8.2 g/dL [facility] Sodium [Moles/Vol] 136 mmol/L 135 - 145 mmol/L [facility] Urea nitrogen [Mass/Vol] 3 mg/dL Low 9 - 20 mg/dL [facility] Manual differential performe d Ql (Bld)on 11-24-2023 Anisocytosis Ql (Bld) Slight Abnormal (none) [facility] Band form neutrophils (Bld) [#/Vol] 0.1 10*3/uL High NINF - 0.0 10*3/uL [facility] Band form neutrophils/100 WBC (Bld) 2 % High NINF - 0 % [facility] Bands Manual 2 [facility] Cells Counted Total (Bld) [#] 100 {cells} [facility] Differential Method Manual differential performed [facility] Eosinophils (Bld) [#/Vol] 0.1 10*3/uL 0.0 - 0.5 10*3/uL [facility] Eosinophils Manual 2 High 0 - 1 [facility] Eosinophils/100 WBC (Bld) 2 % 0 - 6 % [facility] Leukocyte morphology finding Nom (Bld) Normal [facility] Lymphocytes (Bld) [#/Vol] 1.3 10*3/uL 1.0 - 4.3 10*3/uL [facility] Lymphocytes Manual 19 [facility] Lymphocytes/100 WBC (Bld) 19 % 15 - 45 % [facility] Monocytes (Bld) [#/Vol] 0.5 10*3/uL 0.0 - 0.9 10*3/uL [facility] Monocytes Manual 7 [facility] Monocytes/100 WBC (Bld) 7 % 5 - 13 % [facility] Myelocytes (Bld) [#/Vol] 0.1 10*3/uL High NINF - 0.0 10*3/uL [facility] Myelocytes Manual 2 [facility] Myelocytes/100 WBC (Bld) 2 % High NINF - 0 % [facility] Neutrophils (Bld) [#/Vol] 4.8 10*3/uL 1.8 - 7.5 10*3/uL [facility] Neutrophils Manual 68 [facility] Platelet morphology finding Nom (Bld) Normal [facility] Poikilocytosis LM Ql (Bld) Slight Abnormal (none) [facility] Polychromasia LM Ql (Bld) Rare Abnormal (none) [facility] Segmented neutrophils/100 WBC (Bld) 68 % 38 - 82 % [facility] Target cells LM Ql (Bld) Slight Abnormal (none) [facility] WBC corrected for nucl RBC (Bld) [#/Vol] 6.8 10*3/uL 3.6 - 10.7 10*3/uL [facility] No Panel InformationOrdered By: Nigel Palmer on 11-24-2023 Interpretation and review of laboratory results Abnormal [facility] US Abdomen limitedon 024 [facility] Radiology Study observation (narrative) [facility] Abdomen limitedOrdered By : Humera Abbott on 11-24-2023 [facility] Work Phone: CBC W Auto Differential pane l (Bld)on 11-23-2023 Erythrocyte distribution width (RBC) [Ratio] 15.7 % High 11.5 - 15.0 % [facility] Hematocrit (Bld) [Volume fraction] 37.4 % Low 40.0 - 52.0 % [facility] Hemoglobin (Bld) [Mass/Vol] 12.5 g/dL Low 13.0 - 18.0 g/dL [facility] Interpretation and review of laboratory results Abnormal [facility] MCH (RBC) [Entitic mass] 30.7 pg 26.0 - 34.0 pg [facility] MCHC (RBC) [Mass/Vol] 33.4 % 30.5 - 36.0 % [facility] MCV (RBC) [Entitic vol] 91.9 fL 77.0 - 99.0 fL [facility] Platelet mean volume (Bld) [Entitic vol] 10.0 fL 9.0 - 12.7 fL [facility] Platelets (Bld) [#/Vol] 144 10*3/uL 140 - 440 10*3/uL [facility] RBC (Bld) [#/Vol] 4.07 10*6/uL Low 4.40 - 5.9 0 10*6/uL [facility] WBC (Bld) [#/Vol] 6.0 10*3/uL 3.6 - 10.7 10*3/uL [facility] Comprehensive metabolic 1998 panelon 11-23-2023 Albumin [Mass/Vol] 3.4 g/dL Low 3.5 - 5.0 g/dL [facility] ALP [Catalytic activity/Vol] 205 U/L High 38 - 126 U/L [facility] ALT [Catalytic activity/Vol] 74 U/L High 0 - 49 U/L [facility] Anion gap [Moles/Vol] 8 mmol/L 3 - 13 mmol/L [facility] AST [Catalytic activity/Vol] 141 U/L High 15 - 46 U/L [facility] Bilirubin [Mass/Vol] 3.8 mg/dL High 0.2 - 1 .3 mg/dL [facility] Calcium [Mass/Vol] 8.8 mg/dL 8.4 - 10. 4 mg/dL [facility] Chloride [Moles/Vol] 104 mmol/L 98 - 10 7 mmol/L [facility] CO2 [Moles/Vol] 24 mmol/L 22 - 30 mmol/L [facility] Creatinine [Mass/Vol] 0.51 mg/dL Low 0.66 - 1.25 mg/dL [facility] GFR/1.73 sq M.predicted (S/P/Bld) [Vol rate/Area] - PINF [facility] Glucose [Mass/Vol] 111 mg/dL High 70 - 100 mg/dL [facility] Interpretation and review of laboratory results Abnormal [facility] Potassium [Moles/Vol] 3.4 mmol/L Low 3.5 - 5.1 mmol/L [facility] Protein [Mass/Vol] 6.7 g/dL 6.3 - 8.2 g/dL [facility] Sodium [Moles/Vol] 135 mmol/L 135 - 145 mmol/L [facility] Urea nitrogen [Mass/Vol] 7 mg/dL Low 9 - 20 mg/dL [facility] Hepatitis 1996 panel (S)on HAV IgM IA Ql Not detected Not Detected [facility] HBV core IgM IA Ql Not detected Not Detected [facility] HBV surface Ag IA Ql Not detected Not Detected [facility] HCV Ab IA Ql Not detected Not Detected [facility] Interpretation and review of laboratory results Normal [facility] Laboratory - Chemistry and C hemistry - challengeon 11-23-2023 Lipase [Catalytic activity/Vol] 183 U/L 23 - 300 U/L [facility] Magnesium [Mass/Vol] 2.4 mg/dL High 1.6 - 2 .3 mg/dL [facility] Laboratory - Hematology and Cell countson 11-23-2023 Band form neutrophils (Bld) [#/Vol] 0.1 10*3/uL High NINF - 0.0 10*3/uL [facility] Band form neutrophils/100 WBC (Bld) 1 % High NINF - 0 % [facility] Eosinophils (Bld) [#/Vol] 0.1 10*3/uL 0.0 - 0.5 10*3/uL [facility] Eosinophils/100 WBC (Bld) 1 % 0 - 6 % [facility] Hypochromia Ql (Bld) Slight Abnormal (none) [facility] Lymphocytes (Bld) [#/Vol] 1.2 10*3/uL 1.0 - 4.3 10*3/uL [facility] Lymphocytes/100 WBC (Bld) 20 % 15 - 45 % [facility] Metamyelocytes (Bld) [#/Vol] 0.2 10*3/uL High NINF - 0.0 10*3/uL [facility] Metamyelocytes/100 WBC (Bld) 3 % High NINF - 0 % [facility] Monocytes (Bld) [#/Vol] 0.8 10*3/uL 0.0 - 0.9 10*3/uL [facility] Monocytes/100 WBC (Bld) 14 % High 5 - 13 % [facility] Myelocytes (Bld) [#/Vol] 0.2 10*3/uL High NINF - 0.0 10*3/uL [facility] Myelocytes/100 WBC (Bld) 3 % High NINF - 0 % [facility] Neutrophils (Bld) [#/Vol] 3.5 10*3/uL 1.8 - 7.5 10*3/uL [facility] Poikilocytosis LM Ql (Bld) Rare Abnormal (none) [facility] Polychromasia LM Ql (Bld) Rare Abnormal (none) [facility] RBC morphology finding Nom (Bld) abnormal [facility] Segmented neutrophils/100 WBC (Bld) 58 % 38 - 82 % [facility] Stomatocytes LM Ql (Bld) Slight Abnormal (none) [facility] Target cells LM Ql (Bld) Rare Abnormal (none) [facility] Lipase [Catalytic activity/V ol]on 11-23-2023 Interpretation and review of laboratory results Normal [facility] Magnesium [Mass/Vol]on 11-22 Interpretation and review of laboratory results Abnormal [facility] No Panel Informationon 11-22 Bands Manual 1 [facility] Eosinophils Manual 1 0 - 1 [facility] Interpretation and review of laboratory results Abnormal [facility] Lymphocytes Manual 20 [facility] Metamyelocytes Manual 3 [facility] Monocytes Manual 14 [facility] Myelocytes Manual 3 [facility] Neutrophils Manual 58 [facility] CBC W Auto Differential pane l (Bld)Ordered By: Dada Rich on 11-22-2023 Basophils (Bld) [#/Vol] 0.0 10*3/uL 0.0 - 0.2 10*3/uL [facility] Basophils/100 WBC (Bld) 0.5 % 0.0 - 2.0 % [facility] Eosinophils (Bld) [#/Vol] 0.1 10*3/uL 0.0 - 0.5 10*3/uL [facility] Eosinophils/100 WBC (Bld) 2.0 % 0.0 - 6.0 % [facility] Erythrocyte distribution width (RBC) [Ratio] 15.3 % High 11.5 - 15.0 % [facility] Hematocrit (Bld) [Volume fraction] 35.7 % Low 40.0 - 52.0 % [facility] Hemoglobin (Bld) [Mass/Vol] 12.2 g/dL Low 13.0 - 18.0 g/dL [facility] Immature granulocytes (Bld) [#/Vol] 0.3 10*3/uL High NINF - 0.1 10*3/uL [facility] Immature granulocytes/100 WBC (Bld) 4.7 % High 0.0 - 2.0 % [facility] Interpretation and review of laboratory results Abnormal [facility] IPF 4 [facility] Lymphocytes (Bld) [#/Vol] 1.6 10*3/uL 1.0 - 4.3 10*3/uL [facility] Lymphocytes/100 WBC (Bld) 26.3 % 15.0 - 45.0 % [facility] MCH (RBC) [Entitic mass] 31.4 pg 26.0 - 34.0 pg [facility] MCHC (RBC) [Mass/Vol] 34.2 % 30.5 - 36.0 % [facility] MCV (RBC) [Entitic vol] 91.8 fL 77.0 - 99.0 fL [facility] Monocytes (Bld) [#/Vol] 0.7 10*3/uL 0.0 - 0.9 10*3/uL [facility] Monocytes/100 WBC (Bld) 11.4 % 5.0 - 13.0 % [facility] Neutrophils (Bld) [#/Vol] 3.3 10*3/uL 1.8 - 7.5 10*3/uL [facility] Neutrophils/100 WBC (Bld) 55.1 % 38.0 - 82.0 % [facility] Nucleated RBC/100 WBC (Bld) [Ratio] 0.3 % [facility] Platelet mean volume (Bld) [Entitic vol] 9.9 fL 9.0 - 12.7 fL [facility] Platelets (Bld) [#/Vol] 142 10*3/uL 140 - 440 10*3/uL [facility] RBC (Bld) [#/Vol] 3.89 10*6/uL Low 4.40 - 5.9 0 10*6/uL [facility] WBC (Bld) [#/Vol] 5.9 10*3/uL 3.6 - 10.7 10*3/uL [facility] CT Abdomen WO contraston [facility] Radiology Study observation (narrative) [facility] Comprehensive metabolic 1998 panelon 11-22-2023 Albumin [Mass/Vol] 3.2 g/dL Low 3.5 - 5.0 g/dL [facility] ALP [Catalytic activity/Vol] 140 U/L High 38 - 126 U/L [facility] ALT [Catalytic activity/Vol] 56 U/L High 0 - 49 U/L [facility] Anion gap [Moles/Vol] 7 mmol/L 3 - 13 mmol/L [facility] AST [Catalytic activity/Vol] 121 U/L High 15 - 46 U/L [facility] Bilirubin [Mass/Vol] 4.0 mg/dL High 0.2 - 1 .3 mg/dL [facility] Calcium [Mass/Vol] 8.6 mg/dL 8.4 - 10. 4 mg/dL [facility] Chloride [Moles/Vol] 102 mmol/L 98 - 10 7 mmol/L [facility] CO2 [Moles/Vol] 23 mmol/L 22 - 30 mmol/L [facility] Creatinine [Mass/Vol] 0.47 mg/dL Low 0.66 - 1.25 mg/dL [facility] GFR/1.73 sq M.predicted (S/P/Bld) [Vol rate/Area] - PINF [facility] Glucose [Mass/Vol] 118 mg/dL High 70 - 100 mg/dL [facility] Interpretation and review of laboratory results Abnormal [facility] Potassium [Moles/Vol] 3.2 mmol/L Low 3.5 - 5.1 mmol/L [facility] Protein [Mass/Vol] 6.3 g/dL 6.3 - 8.2 g/dL [facility] Sodium [Moles/Vol] 132 mmol/L Low 135 - 145 mmol/L [facility] Urea nitrogen [Mass/Vol] 8 mg/dL Low 9 - 20 mg/dL [facility] Laboratory - Chemistry and C hemistry - challengeon 11-22-2023 Magnesium [Mass/Vol] 2.2 mg/dL 1.6 - 2 .3 mg/dL [facility] Magnesium [Mass/Vol]on 11-21 Interpretation and review of laboratory results Normal [facility] CBC W Auto Differential pane l (Bld)on 11-21-2023 Basophils (Bld) [#/Vol] 0.0 10*3/uL 0.0 - 0.2 10*3/uL [facility] Basophils/100 WBC (Bld) 0.5 % 0.0 - 2.0 % [facility] Eosinophils (Bld) [#/Vol] 0.1 10*3/uL 0.0 - 0.5 10*3/uL [facility] Eosinophils/100 WBC (Bld) 0.9 % 0.0 - 6.0 % [facility] Erythrocyte distribution width (RBC) [Ratio] 15.3 % High 11.5 - 15.0 % [facility] [employer] Hematocrit (Bld) [Volume fraction] 37.5 % Low 40.0 - 52.0 % [facility] Hemoglobin (Bld) [Mass/Vol] 12.4 g/dL Low 13.0 - 18.0 g/dL [facility] [employer] Immature granulocytes (Bld) [#/Vol] 0.1 10*3/uL High NINF - 0.1 10*3/uL [facility] Immature granulocytes/100 WBC (Bld) 2.0 % 0.0 - 2.0 % [facility] Interpretation and review of laboratory results Abnormal [facility] IPF 6 [facility] [employer] Lymphocytes (Bld) [#/Vol] 1.3 10*3/uL 1.0 - 4.3 10*3/uL [facility] Lymphocytes/100 WBC (Bld) 19.3 % 15.0 - 45.0 % [facility] MCH (RBC) [Entitic mass] 30.7 pg 26.0 - 34.0 pg [facility] [employer] MCHC (RBC) [Mass/Vol] 33.1 % 30.5 - 36.0 % [facility] MCV (RBC) [Entitic vol] 92.8 fL 77.0 - 99.0 fL [facility] [employer] Monocytes (Bld) [#/Vol] 0.6 10*3/uL 0.0 - 0.9 10*3/uL [facility] Monocytes/100 WBC (Bld) 9.0 % 5.0 - 13.0 % [facility] [employer] Neutrophils (Bld) [#/Vol] 4.5 10*3/uL 1.8 - 7.5 10*3/uL [facility] Neutrophils/100 WBC (Bld) 68.3 % 38.0 - 82.0 % [facility] [employer] Nucleated RBC/100 WBC (Bld) [Ratio] 0.0 % [facility] [employer] Platelet mean volume (Bld) [Entitic vol] 10.7 fL 9.0 - 12.7 fL [facility] [employer] Platelets (Bld) [#/Vol] 109 10*3/uL Low 140 - 440 10*3/uL [facility] RBC (Bld) [#/Vol] 4.04 10*6/uL Low 4.40 - 5.9 0 10*6/uL [facility] WBC (Bld) [#/Vol] 6.5 10*3/uL 3.6 - 10.7 10*3/uL [facility] Comprehensive metabolic 1998 panelon 11-21-2023 Albumin [Mass/Vol] 3.1 g/dL Low 3.5 - 5.0 g/dL [facility] ALP [Catalytic activity/Vol] 83 U/L 38 - 126 U/L [facility] ALT [Catalytic activity/Vol] 47 U/L 0 - 49 U/L [facility] Anion gap [Moles/Vol] 8 mmol/L 3 - 13 mmol/L [facility] AST [Catalytic activity/Vol] 69 U/L High 15 - 46 U/L [facility] Bilirubin [Mass/Vol] 3.3 mg/dL High 0.2 - 1 .3 mg/dL [facility] Calcium [Mass/Vol] 8.6 mg/dL 8.4 - 10. 4 mg/dL [facility] Chloride [Moles/Vol] 103 mmol/L 98 - 10 7 mmol/L [facility] CO2 [Moles/Vol] 23 mmol/L 22 - 30 mmol/L [facility] Creatinine [Mass/Vol] 0.44 mg/dL Low 0.66 - 1.25 mg/dL [facility] GFR/1.73 sq M.predicted (S/P/Bld) [Vol rate/Area] - PINF [facility] Glucose [Mass/Vol] 95 mg/dL 70 - 100 mg/dL [facility] Interpretation and review of laboratory results Abnormal [facility] Potassium [Moles/Vol] 3.2 mmol/L Low 3.5 - 5.1 mmol/L [facility] Protein [Mass/Vol] 6.2 g/dL Low 6.3 - 8.2 g/dL [facility] Sodium [Moles/Vol] 134 mmol/L Low 135 - 145 mmol/L [facility] Urea nitrogen [Mass/Vol] 6 mg/dL Low 9 - 20 mg/dL [facility] Laboratory - Chemistry and C hemistry - challengeon 11-21-2023 Magnesium [Mass/Vol] 1.9 mg/dL 1.6 - 2 .3 mg/dL [facility] Magnesium [Mass/Vol]on 11-20 Interpretation and review of laboratory results Normal [facility] US Heart TransthoracicOrdere d By: Genie Pike on 11-21-2023 Ao Root Index 1.14 cm/[facility]2 [facility] Work Phone: Aortic Root 2.7 cm [facility] [employer] Phone: [phone] Aortic Sinus Valsalva 2.7 cm [facility] [employer] Phone: Aortic Sinus Valsalva Index 1.14 cm/m2 [facility] Phone: [phone] Ascending Aorta 2.9 cm [facility] [employer] Phone: [phone] Ascending Aorta Index 1.22 cm/m2 [facility] [employer] Phone: AV Area by Peak Velocity 2.9 cm2 [facility] [employer] Phone: AV Area by VTI 2.9 cm2 [facility] [employer] Phone: AV Mean Gradient 6 mmHg [facility] Phone: AV Mean Velocity 1.1 m/s [facility] [employer] Phone: AV Peak Gradient 11 mmHg [facility] [employer] Phone: AV Peak Velocity 1.6 m/s [facility] [employer] Phone: AV Velocity Ratio 0.75 [facility] [employer] Phone: AV VTI 31.9 cm [facility] [employer] Phone: HEATHER/BSA Peak Velocity 1.2 cm2/m2 [facility] [employer] Phone: HEATHER/BSA VTI 1.2 cm2/m2 [facility] [employer] Phone: E/E' Lateral 5.39 [facility] [employer] Phone: E/E' Ratio (Averaged) 6.43 [facility] [employer] Phone: E/E' Septal 7.46 [facility] [employer] Phone: EF BP 74 % 55 - 100 % [facility] Phone: Interpretation and review of laboratory results Abnormal [facility] Phone: LA Volume 2C 67 mL Abnormal 18 - 58 mL [facility] Work Phone: [phone] LA Volume 4C 95 mL Abnormal 18 - 58 mL [facility] Work Phone: LA Volume A/L 93 mL [facility] Work Phone: LA Volume BP 87 mL Abnormal 18 - 58 mL [facility] Work Phone: [phone] LA Volume Index 2C 28 mL/m2 16 - 34 mL/m2 [facility] Work Phone: LA Volume Index 4C 40 mL/m2 Abnormal 16 - 34 mL/m2 [facility] Work Phone: LA Volume Index A/L 39 mL/m2 16 - 34 mL/m2 [facility] Work Phone: [phone] LA Volume Index BP 37 ml/m2 Abnormal 16 - 34 ml/m2 [facility] Work Phone: LV E' Lateral Velocity 18 cm/s [facility] Work Phone: LV E' Septal Velocity 13 cm/s [facility] Work Phone: LV EDV A2C 135 mL [facility] Work Phone: [phone] LV EDV A4C 91 mL [facility] [employer] Work Phone: LV EDV BP 117 mL 67 - 155 mL [facility] [employer] Work Phone: LV EDV Index A2C 57 mL/m2 [facility] [employer] Work Phone: LV EDV Index A4C 38 mL/m2 [facility] Work Phone: LV EDV Index BP 49 mL/m2 [facility] [employer] Work Phone: [phone] LV Ejection Fraction A2C 73 % [facility] [employer] Work Phone: LV Ejection Fraction A4C 73 % [facility] Work Phone: LV ESV A2C 37 mL [facility] [employer] Work Phone: LV ESV A4C 24 mL [facility] [employer] Work Phone: LV ESV BP 31 mL 22 - 58 mL [facility] Work Phone: LV ESV Index A2C 16 mL/m2 [facility] [employer] Work Phone: [phone] LV ESV Index A4C 10 mL/m2 [facility] [employer] Work Phone: [phone] LV ESV Index BP 13 mL/m2 [facility] [employer] Work Phone: [phone] LVOT Area 4.2 cm2 [facility] [employer] Work Phone: [phone] LVOT Cardiac Output 7.6 liter/minute [facility] Work Phone: [phone] LVOT Diameter 2.3 cm [facility] [employer] Work Phone: [phone] LVOT Mean Gradient 3 mmHg [facility] [employer] Work Phone: [phone] LVOT Peak Gradient 6 mmHg [facility] [employer] Work Phone: [phone] LVOT Peak Velocity 1.2 m/s [facility] [employer] Work Phone: [phone] LVOT Stroke Volume Index 41.0 mL/m2 [facility] [employer] Work Phone: [phone] LVOT SV 97.2 ml [facility] [employer] Work Phone: [phone] LVOT VTI 23.4 cm [facility] [employer] Work Phone: [phone] LVOT:AV VTI Index 0.73 [facility] [employer] Work Phone: [phone] MV A Velocity 0.58 m/s [facility] [employer] Work Phone: [phone] MV E Velocity 0.97 m/s [facility] [employer] Work Phone: [phone] MV E Wave Deceleration Time 150.4 ms [facility] [employer] Work Phone: [phone] MV E/A 1.67 [facility] [employer] Work Phone: [phone] RA Area 4C 35.2 mL [facility] [employer] Work Phone: [phone] RA Area 4C 35.3 mL [facility] [employer] Work Phone: [phone] RV Basal Dimension 4.0 cm [facility] [employer] Work Phone: [phone] RV Free Wall Peak S' 18 cm/s [facility] [employer] Work Phone: [phone] TAPSE 2.2 cm 1.7 cm [facility] [employer] Work Phone: [phone] TR Max Velocity 3.07 m/s [facility] [employer] Work Phone: TR Peak Gradient 38 mmHg [employer] Work Phone: [employer] Work Phone: US Heart Transthor[employer]icon CV CPACS CBC W Auto Differential pane l (Bld)Ordered By: Laurel Guzman on 11-20-2023 Erythrocyte distribution width (RBC) [Ratio] 15.1 % High 11.5 - 15.0 % [employer] Hematocrit (Bld) [Volume fraction] 37.7 % Low 40.0 - 52.0 % [facility] [employer] Hemoglobin (Bld) [Mass/Vol] 12.8 g/dL Low 13.0 - 18.0 g/dL [facility] [employer] Interpretation and review of laboratory results Abnormal [facility] [employer] IPF 6 [facility] [employer] MCH (RBC) [Entitic mass] 31.4 pg 26.0 - 34.0 pg [facility] [employer] MCHC (RBC) [Mass/Vol] 34.0 % 30.5 - 36.0 % [facility] [employer] MCV (RBC) [Entitic vol] 92.4 fL 77.0 - 99.0 fL [facility] [employer] Platelet mean volume (Bld) [Entitic vol] 10.6 fL 9.0 - 12.7 fL [facility] [employer] Platelets (Bld) [#/Vol] 77 10*3/uL Low 140 - 440 10*3/uL [facility] [employer] RBC (Bld) [#/Vol] 4.08 10*6/uL Low 4.40 - 5.9 0 10*6/uL [facility] [employer] WBC (Bld) [#/Vol] 6.6 10*3/uL 3.6 - 10.7 10*3/uL [facility] CTA Chest vessels WO and W c ontrast Ellen 11-20-2023 [facility] Radiology Study observation (narrative) [facility] [employer] CTA Chest vessels WO and W c ontrast IVOrdered By: Seema Watson on 11-20-2023 [employer] Work Phone: Laboratory - Chemistry and C hemistry - challengeon 11-20-2023 Lipase [Catalytic activity/Vol] 421 U/L High 23 - 300 U/L [facility] [employer] Lipase [Catalytic activity/V ol]on 11-20-2023 Interpretation and review of laboratory results Abnormal [facility] Manual differential performe d Ql (Bld)on 11-20-2023 Anisocytosis Ql (Bld) Slight Abnormal (none) [facility] Band form neutrophils (Bld) [#/Vol] 1.7 10*3/uL High NINF - 0.0 10*3/uL [facility] Band form neutrophils/100 WBC (Bld) 25 % High NINF - 0 % [facility] Bands Manual 25 [facility] Cells Counted Total (Bld) [#] 100 {cells} [facility] Differential Method Manual differential performed [facility] Interpretation and review of laboratory results Abnormal [facility] Leukocyte morphology finding Nom (Bld) Normal [facility] Lymphocytes (Bld) [#/Vol] 1.1 10*3/uL 1.0 - 4.3 10*3/uL [facility] Lymphocytes Manual 16 [facility] Lymphocytes/100 WBC (Bld) 16 % 15 - 45 % [facility] Monocytes (Bld) [#/Vol] 0.3 10*3/uL 0.0 - 0.9 10*3/uL [facility] Monocytes Manual 4 [facility] Monocytes/100 WBC (Bld) 4 % Low 5 - 13 % S [facility] Neutrophils (Bld) [#/Vol] 5.3 10*3/uL 1.8 - 7.5 10*3/uL [facility] Neutrophils Manual 55 [facility] Platelet morphology finding Nom (Bld) Normal [facility] Polychromasia LM Ql (Bld) Rare Abnormal (none) [facility] Segmented neutrophils/100 WBC (Bld) 55 % 38 - 82 % [facility] WBC corrected for nucl RBC (Bld) [#/Vol] 6.6 10*3/uL 3.6 - 10.7 10*3/uL [facility] Comprehensive metabolic 1998 panelOrdered By: Taina Lancaster on 11-19-2023 Albumin [Mass/Vol] 3.3 g/dL Low 3.5 - 5.0 g/dL [facility] ALP [Catalytic activity/Vol] 74 U/L 38 - 126 U/L [facility] ALT [Catalytic activity/Vol] 55 U/L High 0 - 49 U/L [facility] Anion gap [Moles/Vol] 10 mmol/L 3 - 13 mmol/L [facility] AST [Catalytic activity/Vol] 68 U/L High 15 - 46 U/L [facility] Bilirubin [Mass/Vol] 3.1 mg/dL High 0.2 - 1 .3 mg/dL [facility] Calcium [Mass/Vol] 8.2 mg/dL Low 8.4 - 10. 4 mg/dL [facility] Chloride [Moles/Vol] 105 mmol/L 98 - 10 7 mmol/L [facility] CO2 [Moles/Vol] 17 mmol/L Low 22 - 30 mmol/L [facility] Creatinine [Mass/Vol] 0.51 mg/dL Low 0.66 - 1.25 mg/dL [facility] GFR/1.73 sq M.predicted (S/P/Bld) [Vol rate/Area] - PINF [facility] Glucose [Mass/Vol] 110 mg/dL High 70 - 100 mg/dL [facility] Interpretation and review of laboratory results Abnormal [facility] Potassium [Moles/Vol] 4.0 mmol/L 3.5 - 5.1 mmol/L [facility] Protein [Mass/Vol] 6.1 g/dL Low 6.3 - 8.2 g/dL [facility] Sodium [Moles/Vol] 131 mmol/L Low 135 - 145 mmol/L [facility] Urea nitrogen [Mass/Vol] 6 mg/dL Low 9 - 20 mg/dL [facility] Laboratory - Chemistry and C hemistry - challengeon 11-19-2023 Lipase [Catalytic activity/Vol] 837 U/L High 23 - 300 U/L [facility] Lipase [Catalytic activity/V ol]on 11-19-2023 Interpretation and review of laboratory results Abnormal [facility] No Panel InformationOrdered By: Kori May on 11-19-2023 FENTANYL SCREEN, URINE Negative Negative [facility] XR Chest 2 Viewson [facility] Radiology Study observation (narrative) [facility] XR Chest 2 ViewsOrdered By: Cedrick Kaur on 11-19-2023 [facility] Work Phone: CBC W Auto Differential pane l (Bld)on 11-18-2023 Basophils (Bld) [#/Vol] 0.0 10*3/uL 0.0 - 0.2 10*3/uL [facility] Basophils/100 WBC (Bld) 0.4 % 0.0 - 2.0 % [facility] Eosinophils (Bld) [#/Vol] 0.0 10*3/uL 0.0 - 0.5 10*3/uL [facility] Eosinophils/100 WBC (Bld) 0.3 % 0.0 - 6.0 % [facility] Erythrocyte distribution width (RBC) [Ratio] 15.4 % High 11.5 - 15.0 % [facility] Hematocrit (Bld) [Volume fraction] 48.8 % 40.0 - 52.0 % [facility] Hemoglobin (Bld) [Mass/Vol] 16.1 g/dL 13.0 - 18.0 g/dL [facility] Immature granulocytes (Bld) [#/Vol] 0.0 10*3/uL NINF - 0.1 10*3/uL [facility] Immature granulocytes/100 WBC (Bld) 0.3 % 0.0 - 2.0 % [facility] Interpretation and review of laboratory results Abnormal [facility] Lymphocytes (Bld) [#/Vol] 1.8 10*3/uL 1.0 - 4.3 10*3/uL [facility] Lymphocytes/100 WBC (Bld) 25.2 % 15.0 - 45.0 % [facility] MCH (RBC) [Entitic mass] 30.9 pg 26.0 - 34.0 pg [facility] MCHC (RBC) [Mass/Vol] 33.0 % 30.5 - 36.0 % [facility] MCV (RBC) [Entitic vol] 93.7 fL 77.0 - 99.0 fL [facility] Monocytes (Bld) [#/Vol] 0.4 10*3/uL 0.0 - 0.9 10*3/uL [facility] Monocytes/100 WBC (Bld) 5.9 % 5.0 - 13.0 % [facility] Neutrophils (Bld) [#/Vol] 4.9 10*3/uL 1.8 - 7.5 10*3/uL [facility] Neutrophils/100 WBC (Bld) 67.9 % 38.0 - 82.0 % [facility] Nucleated RBC/100 WBC (Bld) [Ratio] 0.0 % [facility] Platelet mean volume (Bld) [Entitic vol] 9.8 fL 9.0 - 12.7 fL [facility] Platelets (Bld) [#/Vol] 176 10*3/uL 140 - 440 10*3/uL [facility] RBC (Bld) [#/Vol] 5.21 10*6/uL 4.40 - 5.9 0 10*6/uL [facility] WBC (Bld) [#/Vol] 7.1 10*3/uL 3.6 - 10.7 10*3/uL [facility] CT Abdomen and Pelvis W cont rast Ellen 11-18-2023 [facility] Radiology Study observation (narrative) [facility] CT Abdomen and Pelvis W cont rast IVOrdered By: Gagan Rich on 11-18-2023 [facility] Work Phone: Comprehensive metabolic 1998 panelon 11-18-2023 Albumin [Mass/Vol] 4.4 g/dL 3.5 - 5.0 g/dL [facility] ALP [Catalytic activity/Vol] 156 U/L High 38 - 126 U/L [facility] ALT [Catalytic activity/Vol] 120 U/L High 0 - 49 U/L [facility] Anion gap [Moles/Vol] 11 mmol/L 3 - 13 mmol/L [facility] AST [Catalytic activity/Vol] 198 U/L High 15 - 46 U/L [facility] Bilirubin [Mass/Vol] 1.5 mg/dL High 0.2 - 1 .3 mg/dL [facility] Calcium [Mass/Vol] 9.4 mg/dL 8.4 - 10. 4 mg/dL [facility] Chloride [Moles/Vol] 103 mmol/L 98 - 10 7 mmol/L [facility] CO2 [Moles/Vol] 25 mmol/L 22 - 30 mmol/L [facility] Creatinine [Mass/Vol] 0.64 mg/dL Low 0.66 - 1.25 mg/dL [facility] GFR/1.73 sq M.predicted (S/P/Bld) [Vol rate/Area] - PINF [facility] Glucose [Mass/Vol] 126 mg/dL High 70 - 100 mg/dL [facility] Interpretation and review of laboratory results Abnormal [facility] Potassium [Moles/Vol] 4.8 mmol/L 3.5 - 5.1 mmol/L [facility] Protein [Mass/Vol] 7.7 g/dL 6.3 - 8.2 g/dL [facility] Sodium [Moles/Vol] 140 mmol/L 135 - 145 mmol/L [facility] Urea nitrogen [Mass/Vol] 5 mg/dL Low 9 - 20 mg/dL [facility] Albumin [Mass/Vol] 4.8 g/dL 3.5 - 5.0 g/dL [facility] ALP [Catalytic activity/Vol] 145 U/L High 38 - 126 U/L [facility] ALT [Catalytic activity/Vol] 148 U/L High 0 - 49 U/L [facility] Anion gap [Moles/Vol] 18 mmol/L High 3 - 13 mmol/L [facility] AST [Catalytic activity/Vol] 249 U/L High 15 - 46 U/L [facility] Bilirubin [Mass/Vol] 1.0 mg/dL 0.2 - 1 .3 mg/dL [facility] Calcium [Mass/Vol] 9.1 mg/dL 8.4 - 10. 4 mg/dL [facility] Chloride [Moles/Vol] 104 mmol/L 98 - 10 7 mmol/L [facility] CO2 [Moles/Vol] 18 mmol/L Low 22 - 30 mmol/L [facility] Creatinine [Mass/Vol] 0.65 mg/dL Low 0.66 - 1.25 mg/dL [facility] GFR/1.73 sq M.predicted (S/P/Bld) [Vol rate/Area] - PINF [facility] Glucose [Mass/Vol] 155 mg/dL High 70 - 100 mg/dL [facility] Potassium [Moles/Vol] 4.0 mmol/L 3.5 - 5.1 mmol/L [facility] Protein [Mass/Vol] 8.4 g/dL High 6.3 - 8.2 g/dL [facility] Sodium [Moles/Vol] 140 mmol/L 135 - 145 mmol/L [facility] Urea nitrogen [Mass/Vol] 5 mg/dL Low 9 - 20 mg/dL [facility] Ethanol (Bld) [Mass/Vol]on Ethanol [Mass/Vol] 0.027 g/dL High 0.000 - 0.010 g/dL [facility] Laboratory - Chemistry and C hemistry - challengeon 11-18-2023 Triglyceride [Mass/Vol] 232 mg/dL High NINF - 150 mg/dL [facility] Laboratory - Chemistry and C hemistry - challengeOrdered By: Francine Murphy on 11-18-2023 Lipase [Catalytic activity/Vol] U/L High 23 - 300 U/L [facility] Laboratory - Chemistry and C hemistry - challengeOrdered By: Tessa Velez on 11-18-2023 Lipase [Catalytic activity/Vol] U/L High 23 - 300 U/L [facility] Laboratory - Drug toxicology on 11-18-2023 Amphetamines Screen method >1000 ng/mL Ql (U) Negative [facility] Barbiturates Screen method >200 ng/mL Ql (U) Negative [facility] Benzodiazepines Ql (U) Negative [facility] Methadone Screen Ql (U) Negative S [facility] Opiates Screen Ql (U) Positive [facility] oxyCODONE Ql (U) Negative [facility] Phencyclidine Ql (U) Negative [facility] Laboratory - Microbiology an d Antimicrobial susceptibilityOrdered By: Nevaeh Erickson on 11-18-2023 SARS-CoV-2 (COVID-19) Ag IA.rapid Ql (Resp) Negative Negative [facility] Lipase [Catalytic activity/V ol]Ordered By: Francine Murphy on 11-18-2023 Interpretation and review of laboratory results Abnormal [facility] Lipase [Catalytic activity/V ol]Ordered By: Tessa Velez on 11-18-2023 Interpretation and review of laboratory results Abnormal [facility] No Panel Informationon 11-17 COCAINE METAB. SCREEN Negative [facility] Interpretation and review of laboratory results Abnormal [facility] SARS-CoV-2 (COVID-19) Ag IA. rapid Ql (Resp)Ordered By: Nevaeh Erickson on 11-18-2023 Interpretation and review of laboratory results Normal [facility] Triglyceride [Mass/Vol]on Interpretation and review of laboratory results Abnormal [facility] Urinalysis complete panel (U )Ordered By: Wanda Frias on 11-18-2023 Bacteria LM.HPF (Urine sed) [#/Area] Negative Negative /HPF [facility] Bilirubin Ql (U) Negative Negative mg/dL [facility] Clarity (U) Clear Clear [facility] Color (U) Yellow Lt. Yellow [facility] Epithelial cells.squamous LM.HPF (Urine sed) [#/Area] Negative [facility] Glucose Ql (U) Normal Normal (<70) mg/dL [facility] Hemoglobin Ql (U) Negative Negative mg/dL [facility] Hyaline casts Auto (Urine sed) [#/Area] 6-10 Abnormal Negative /LPF [facility] Interpretation and review of laboratory results Abnormal [facility] Ketones (U) [Mass/Vol] 10 mg/dL Abnormal Negative [facility] Leukocyte esterase Test strip Ql (U) Negative Negative Teofilo/uL [facility] Mucus LM.HPF (Urine sed) [#/Area] Many Abnormal Negative /LPF [facility] Nitrite Ql (U) Negative Negative [facility] pH (U) 6.0 [pH] 5.0 - 8.0 pH [facility] Protein (U) [Mass/Vol] 30 mg/dL Abnormal Negative [facility] RBC LM.HPF (Urine sed) [#/Area] 0-2 [facility] Specific gravity (U) [Rel density] 1.044 High 1.005 - 1.030 [facility] Urobilinogen (U) [Mass/Vol] Normal Normal (0-1) mg/dL [facility] WBC LM.HPF (Urine sed) [#/Area] 3-5 [facility] Lipaseon 10-22-2023 Lipase [Catalytic activity/Vol] 574 U/L High 23 - 300 U/L [facility] Lipase [Catalytic activity/V ol]on 10-22-2023 Interpretation and review of laboratory results Abnormal [facility] Medication Assisted Treatmen t Panel (MATP)Ordered By: Ana Browne on 10-22-2023 Amphetamines Ql (U) Negative Negative [facility] Barbiturates screen method Nom (U) Negative Negative [facility] Benzodiazepines screen method Nom (U) Negative Negative [facility] BUPRENORPHINE SCREEN Negative Negative [facility] Cocaine Ql (U) Negative Negative [facility] Ethanol [Mass/Vol] Negative Negative [facility] FENTANYL Negative Negative [facility] Methadone Ql (U) Negative Negative [facility] Opiates Screen Ql (U) Negative Negative [facility] OXYCODONE/OXYMORPHONE Negative Negative [facility] PCP Negative Negative [facility] THC Negative Negative [facility] The expected value f or the drugs [...] treatment only. Analysis performed using non-forensic procedures. [facility] Laboratory - Chemistry and C hemistry - challengeOrdered By: Dada Rich on 10-17-2023 Triglyceride [Mass/Vol] 197 mg/dL High NINF - 150 mg/dL [facility] Triglyceride [Mass/Vol]Order ed By: Dada Rich on 10-17-2023 Interpretation and review of laboratory results Abnormal [facility] CBC panel Auto (Bld)on 10-15 Erythrocyte distribution width (RBC) [Ratio] 14.5 % 11.5 - 15.0 % [facility] Hematocrit (Bld) [Volume fraction] 46.9 % 40.0 - 52.0 % [facility] Hemoglobin (Bld) [Mass/Vol] 15.4 g/dL 13.0 - 18.0 g/dL [facility] Interpretation and review of laboratory results Normal [facility] MCH (RBC) [Entitic mass] 31.2 pg 26.0 - 34.0 pg [facility] MCHC (RBC) [Mass/Vol] 32.8 % 30.5 - 36.0 % [facility] MCV (RBC) [Entitic vol] 94.9 fL 77.0 - 99.0 fL [facility] Platelet mean volume (Bld) [Entitic vol] 9.8 fL 9.0 - 12.7 fL [facility] Platelets (Bld) [#/Vol] 189 10*3/uL 140 - 440 10*3/uL [facility] RBC (Bld) [#/Vol] 4.94 10*6/uL 4.40 - 5.9 0 10*6/uL [facility] WBC (Bld) [#/Vol] 6.9 10*3/uL 3.6 - 10.7 10*3/uL [facility] Erythrocyte distribution width (RBC) [Ratio] 14.7 % 11.5 - 15.0 % [facility] Hematocrit (Bld) [Volume fraction] 47.2 % 40.0 - 52.0 % [facility] Hemoglobin (Bld) [Mass/Vol] 15.6 g/dL 13.0 - 18.0 g/dL [facility] Interpretation and review of laboratory results Normal [facility] MCH (RBC) [Entitic mass] 30.9 pg 26.0 - 34.0 pg [facility] MCHC (RBC) [Mass/Vol] 33.1 % 30.5 - 36.0 % [facility] MCV (RBC) [Entitic vol] 93.5 fL 77.0 - 99.0 fL [facility] Platelet mean volume (Bld) [Entitic vol] 9.8 fL 9.0 - 12.7 fL [facility] Comment on above: MPV is a calculated measurement using platelet volume ratio Platelets (Bld) [#/Vol] 208 10*3/uL 140 - 440 10*3/uL [facility] RBC (Bld) [#/Vol] 5.05 10*6/uL 4.40 - 5.9 0 10*6/uL [facility] WBC (Bld) [#/Vol] 8.9 10*3/uL 3.6 - 10.7 10*3/uL [facility] Comprehensive metabolic 1998 panelon 10-16-2023 Albumin [Mass/Vol] 4.5 g/dL 3.5 - 5.0 g/dL [facility] ALP [Catalytic activity/Vol] 158 U/L High 38 - 126 U/L [facility] ALT [Catalytic activity/Vol] 159 U/L High 0 - 49 U/L [facility] Anion gap [Moles/Vol] 9 mmol/L 3 - 13 mmol/L [facility] AST [Catalytic activity/Vol] 149 U/L High 15 - 46 U/L [facility] Bilirubin [Mass/Vol] 1.1 mg/dL 0.2 - 1 .3 mg/dL [facility] Calcium [Mass/Vol] 9.6 mg/dL 8.4 - 10. 4 mg/dL [facility] Chloride [Moles/Vol] 103 mmol/L 98 - 10 7 mmol/L [facility] CO2 [Moles/Vol] 28 mmol/L 22 - 30 mmol/L [facility] Creatinine [Mass/Vol] 0.68 mg/dL 0.66 - 1.25 mg/dL [facility] GFR/1.73 sq M.predicted (S/P/Bld) [Vol rate/Area] - PINF [facility] Comment on above: Calculation based on the Chronic Kidney Disease Epidemiology Collaboration (CKD-EPI) equation refit without adjustment for race Glucose [Mass/Vol] 104 mg/dL High 70 - 100 mg/dL [facility] Potassium [Moles/Vol] 4.1 mmol/L 3.5 - 5.1 mmol/L [facility] Protein [Mass/Vol] 8.1 g/dL 6.3 - 8.2 g/dL [facility] Sodium [Moles/Vol] 141 mmol/L 135 - 145 mmol/L [facility] Urea nitrogen [Mass/Vol] 6 mg/dL Low 9 - 20 mg/dL [facility] Albumin [Mass/Vol] 4.8 g/dL 3.5 - 5.0 g/dL [facility] ALP [Catalytic activity/Vol] 158 U/L High 38 - 126 U/L [facility] ALT [Catalytic activity/Vol] 173 U/L High 0 - 49 U/L [facility] Anion gap [Moles/Vol] 13 mmol/L 3 - 13 mmol/L [facility] AST [Catalytic activity/Vol] 235 U/L High 15 - 46 U/L [facility] Bilirubin [Mass/Vol] 0.8 mg/dL 0.2 - 1 .3 mg/dL [facility] Calcium [Mass/Vol] 9.7 mg/dL 8.4 - 10. 4 mg/dL [facility] Chloride [Moles/Vol] 100 mmol/L 98 - 10 7 mmol/L [facility] CO2 [Moles/Vol] 25 mmol/L 22 - 30 mmol/L [facility] Creatinine [Mass/Vol] 0.62 mg/dL Low 0.66 - 1.25 mg/dL [facility] GFR/1.73 sq M.predicted (S/P/Bld) [Vol rate/Area] - PINF [facility] Comment on above: Calculation based on the Chronic Kidney Disease Epidemiology Collaboration (CKD-EPI) equation refit without adjustment for race Glucose [Mass/Vol] 126 mg/dL High 70 - 100 mg/dL [facility] Interpretation and review of laboratory results Abnormal [facility] [employer] Potassium [Moles/Vol] 4.0 mmol/L 3.5 - 5.1 mmol/L [facility] [employer] Protein [Mass/Vol] 8.8 g/dL High 6.3 - 8.2 g/dL [facility] [employer] Sodium [Moles/Vol] 138 mmol/L 135 - 145 mmol/L [facility] Urea nitrogen [Mass/Vol] 5 mg/dL Low 9 - 20 mg/dL [facility] Laboratory - Chemistry and C hemistry - challengeon 10-16-2023 Lipase [Catalytic activity/Vol] 1185 U/L High 23 - 300 U/L [facility] [employer] Troponin I.cardiac [Mass/Vol] 0.016 ng/mL NINF - 0.034 ng/mL [facility] Laboratory - Chemistry and C hemistry - challengeOrdered By: Silvia Prince on 10-16-2023 Lipase [Catalytic activity/Vol] U/L High 23 - 300 U/L [facility] [employer] Lipase [Catalytic activity/V ol]Ordered By: Silvia Prince on 10-16-2023 Interpretation and review of laboratory results Abnormal [facility] [employer] Result manually entered, interpret with caution. [facility] [employer] No Panel Informationon 10-15 Interpretation and review of laboratory results Abnormal [facility] [employer] Extra Tube Hold for add-ons. [facility] [employer] Comment on above: Auto resulted. [facility] [employer] P [place] 57 degrees [facility] [employer] [place] Interval 158 ms [facility] [employer] QRS [place] 9 degrees [facility] [employer] QRSD Interval 89 ms [facility] [employer] QT Interval 391 ms [facility] [employer] QTC Interval 465 ms [facility] [employer] T Wave [place] -9 degrees [facility] [employer] Sinus rhythm LVH by voltage Nonspecific T abnormalities, inferior leads - similar to prior EKG 03/15/22 Electronically Signed On 10-16-2023 02:06:16 EDT by Idris Curtis MD - 10/16/2023 IMPRESSION: Sinus rhythm LVH by voltage Nonspecific T abnormalities, inferior leads - similar to prior EKG 03/15/22 Electronically Signed On 10-16-2023 02:06:16 EDT by Idris Danielson [facility] Troponin I.cardiac [Mass/Vol ]on 10-16-2023 Interpretation and review of laboratory results Normal [facility] Patients with high levels of Biotin oral intake (ie >5 mg/day) may have falsely decreased Troponin levels. [facility] US Abdomen limitedon 024 1. Gallbladder appea rs unremarkable. 2. Fatty infiltration of the liver. Report Dictated on Electronically Signed By: Adrian Mondragon MD Electronically Signed Date/Time: 10/16/2023 1:29 PM EDT [facility] Patient Name: RORO CLAIRE : [...] focal lesion identified. Gallbladder: Normal. Per the geospatial information technologist, the sonographic Li's sign was negative. Bile ducts: No intrahepatic and extrahepatic biliary dilatation Common bile duct: 3 mm Right kidney: Normal size measuring 12.1 x 6.2 x 5.5 cm. Normal parenchymal echogenicity without solid mass or hydronephrosis. Ascites: None [facility] Adrian Mondragon MD - 10/16/2023 Patient [...] focal lesion identified. Gallbladder: Normal. Per the geospatial information technologist, the sonographic Li's sign was negative. [...] Electronically Signed Date/Time: 10/16/2023 1:29 PM EDT [facility] Radiology Study observation (narrative) [facility] US Abdomen limitedOrdered By : Adrian Mondragon on 10-16-2023 [facility] Work Phone: Vital signson 10-16-2023 Heart rate 85 /min bpm [facility] Medication Assisted Treatmen t Panel (MATP)Ordered By: Kori May on 10-14-2023 Amphetamines Ql (U) Negative Negative [facility] Barbiturates screen method Nom (U) Negative Negative [facility] Benzodiazepines screen method Nom (U) Negative Negative [facility] BUPRENORPHINE SCREEN Negative Negative [facility] Cocaine Ql (U) Negative Negative [facility] Ethanol [Mass/Vol] Positive Negative [facility] FENTANYL Negative Negative [facility] Methadone Ql (U) Negative Negative [facility] Opiates Screen Ql (U) Negative Negative [facility] OXYCODONE/OXYMORPHONE Negative Negative [facility] PCP Negative Negative [facility] THC Negative Negative [facility] The expected value f or the drugs [...] treatment only. Analysis performed using non-forensic procedures. [facility] CBC W Auto Differential pane l (Bld)on 2023 Basophils (Bld) [#/Vol] 0.0 10*3/uL 0.0 - 0.2 10*3/uL [facility] [employer] Basophils/100 WBC (Bld) 0.6 % 0.0 - 2.0 % [facility] Eosinophils (Bld) [#/Vol] 0.1 10*3/uL 0.0 - 0.5 10*3/uL [facility] Eosinophils/100 WBC (Bld) 0.7 % 0.0 - 6.0 % [facility] Erythrocyte distribution width (RBC) [Ratio] 14.2 % 11.5 - 15.0 % [facility] Hematocrit (Bld) [Volume fraction] 42.1 % 40.0 - 52.0 % [facility] Hemoglobin (Bld) [Mass/Vol] 14.3 g/dL 13.0 - 18.0 g/dL [facility] Immature granulocytes (Bld) [#/Vol] 0.0 10*3/uL NINF - 0.1 10*3/uL [facility] [employer] Immature granulocytes/100 WBC (Bld) 0.6 % 0.0 - 2.0 % [facility] Interpretation and review of laboratory results Normal [facility] Lymphocytes (Bld) [#/Vol] 2.6 10*3/uL 1.0 - 4.3 10*3/uL [facility] [employer] Lymphocytes/100 WBC (Bld) 39.2 % 15.0 - 45.0 % [facility] MCH (RBC) [Entitic mass] 31.2 pg 26.0 - 34.0 pg [facility] MCHC (RBC) [Mass/Vol] 34.0 % 30.5 - 36.0 % [facility] MCV (RBC) [Entitic vol] 91.7 fL 77.0 - 99.0 fL [facility] Monocytes (Bld) [#/Vol] 0.4 10*3/uL 0.0 - 0.9 10*3/uL [facility] [employer] Monocytes/100 WBC (Bld) 6.4 % 5.0 - 13.0 % [facility] Neutrophils (Bld) [#/Vol] 3.5 10*3/uL 1.8 - 7.5 10*3/uL [facility] Neutrophils/100 WBC (Bld) 52.5 % 38.0 - 82.0 % [facility] Nucleated RBC/100 WBC (Bld) [Ratio] 0.0 % [facility] Platelet mean volume (Bld) [Entitic vol] 9.5 fL 9.0 - 12.7 fL [facility] Platelets (Bld) [#/Vol] 226 10*3/uL 140 - 440 10*3/uL [facility] RBC (Bld) [#/Vol] 4.59 10*6/uL 4.40 - 5.9 0 10*6/uL [facility] WBC (Bld) [#/Vol] 6.7 10*3/uL 3.6 - 10.7 10*3/uL [facility] Comprehensive metabolic 1998 panelon 2023 Albumin [Mass/Vol] 4.7 g/dL 3.5 - 5.0 g/dL [facility] ALP [Catalytic activity/Vol] 117 U/L 38 - 126 U/L [facility] ALT [Catalytic activity/Vol] 408 U/L High 0 - 49 U/L [facility] Anion gap [Moles/Vol] 13 mmol/L 3 - 13 mmol/L [facility] AST [Catalytic activity/Vol] 364 U/L High 15 - 46 U/L [facility] Bilirubin [Mass/Vol] 0.8 mg/dL 0.2 - 1 .3 mg/dL [facility] Calcium [Mass/Vol] 9.7 mg/dL 8.4 - 10. 4 mg/dL [facility] Chloride [Moles/Vol] 100 mmol/L 98 - 10 7 mmol/L [facility] CO2 [Moles/Vol] 24 mmol/L 22 - 30 mmol/L [facility] Creatinine [Mass/Vol] 0.55 mg/dL Low 0.66 - 1.25 mg/dL [facility] GFR/1.73 sq M.predicted (S/P/Bld) [Vol rate/Area] - PINF [facility] Comment on above: Calculation based on the Chronic Kidney Disease Epidemiology Collaboration (CKD-EPI) equation refit without adjustment for race Glucose [Mass/Vol] 106 mg/dL High 70 - 100 mg/dL [facility] Interpretation and review of laboratory results Abnormal [facility] Potassium [Moles/Vol] 3.4 mmol/L Low 3.5 - 5.1 mmol/L [facility] Protein [Mass/Vol] 8.0 g/dL 6.3 - 8.2 g/dL [facility] Sodium [Moles/Vol] 137 mmol/L 135 - 145 mmol/L [facility] Urea nitrogen [Mass/Vol] 3 mg/dL Low 9 - 20 mg/dL [facility] Laboratory - Chemistry and C hemistry - challengeon 2023 Lipase [Catalytic activity/Vol] 2537 U/L High 23 - 300 U/L [facility] Lipase [Catalytic activity/V ol]on 2023 Interpretation and review of laboratory results Abnormal [facility] Urinalysis complete panel (U )Ordered By: Brandy Morelos on 2023 Bacteria LM.HPF (Urine sed) [#/Area] Negative Negative /HPF [facility] Bilirubin Ql (U) Negative Negative mg/dL [facility] Clarity (U) Clear Clear [facility] Color (U) Yellow Lt. Yellow [facility] Epithelial cells.squamous LM.HPF (Urine sed) [#/Area] 0-2 [facility] Glucose Ql (U) Normal Normal (<70) mg/dL [facility] Hemoglobin Ql (U) Negative Negative mg/dL [facility] Interpretation and review of laboratory results Abnormal [facility] Ketones (U) [Mass/Vol] Negative Negat chan mg/dL [facility] Leukocyte esterase Test strip Ql (U) Negative Negative Teofilo/uL [facility] Mucus LM.HPF (Urine sed) [#/Area] Moderate Abnormal Negative /LPF [facility] Nitrite Ql (U) Negative Negative [facility] pH (U) 6.0 [pH] 5.0 - 8.0 pH [facility] Protein (U) [Mass/Vol] 10 mg/dL Abnormal Negative [facility] RBC LM.HPF (Urine sed) [#/Area] 0-2 [facility] Specific gravity (U) [Rel density] 1.020 1.005 - 1.030 [facility] Urobilinogen (U) [Mass/Vol] Normal Normal (0-1) mg/dL [facility] WBC LM.HPF (Urine sed) [#/Area] 0-2 [facility] MEDICATION ASSISTED TREATMEN T PANELOrdered By: Kori May on 09-23-2023 Amphetamines Ql (U) Negative Negative [facility] Barbiturates screen method Nom (U) Positive Negative [facility] Benzodiazepines screen method Nom (U) Negative Negative [facility] BUPRENORPHINE SCREEN Positive Negative [facility] Cocaine Ql (U) Negative Negative [facility] Ethanol [Mass/Vol] Negative Negative [facility] FENTANYL Negative Negative [facility] Methadone Ql (U) Negative Negative [facility] Opiates Screen Ql (U) Negative Negative [facility] OXYCODONE/OXYMORPHONE [facility] PCP Negative Negative [facility] THC Positive Negative [facility] The expected value f or the drugs [...] treatment only. Analysis performed using non-forensic procedures. [facility] Medication Assisted Treatmen t Panel (MATP)Ordered By: Ana Browne on 08-19-2023 Amphetamines Ql (U) Negative Negative [facility] Barbiturates screen method Nom (U) Positive Negative [facility] Benzodiazepines screen method Nom (U) Negative Negative [facility] BUPRENORPHINE SCREEN Positive Negative [facility] Cocaine Ql (U) Negative Negative [facility] Ethanol [Mass/Vol] Negative Negative [facility] FENTANYL Negative Negative [facility] Methadone Ql (U) Negative Negative [facility] Opiates Screen Ql (U) Negative Negative [facility] OXYCODONE/OXYMORPHONE Negative Negative [facility] PCP Negative Negative [facility] THC Negative Negative [facility] The expected value f or the drugs [...] treatment only. Analysis performed using non-forensic procedures. [facility] Laboratory - Drug toxicology Ordered By: Connie Da Silva on 08-11-2023 Amphetamines Screen method >1000 ng/mL Ql (U) Negative [facility] Barbiturates Screen method >200 ng/mL Ql (U) Negative [facility] Benzodiazepines Ql (U) Negative [facility] Methadone Screen Ql (U) Negative [facility] Opiates Screen Ql (U) Negative [facility] oxyCODONE Ql (U) Negative [facility] Phencyclidine Ql (U) Negative [facility] No Panel InformationOrdered By: Cory Baldomero on 08-11-2023 BUPRENORPHINE SCREEN Negative Negative [facility] Buprenorphine (Suboxone) has been screened for by Immunoassay at 5 ng/mL threshold. POSITIVE results are not confirmed by a more specific alternative method unless requested. If confirmation is needed, request confirmation under separate order. NOTE: These results are for medical treatment only. Analysis performed using non-forensic procedures. [facility] No Panel InformationOrdered By: Connie Da Silva on 08-11-2023 COCAINE METAB. SCREEN Negative [facility] The expected value f or all [...] is needed, request confirmation under separate order. [facility] Urinalysis complete panel (U )on 08-11-2023 Bilirubin Ql (U) Negative Negative mg/dL [facility] Clarity (U) Clear Clear [facility] Color (U) Light Yellow Lt. Yellow [facility] Glucose Ql (U) Normal Normal (<70) mg/dL [facility] Hemoglobin Ql (U) Negative Negative mg/dL [facility] Interpretation and review of laboratory results Normal [facility] Ketones (U) [Mass/Vol] Negative Negat chan mg/dL [facility] Leukocyte esterase Test strip Ql (U) Negative Negative Teofilo/uL [facility] Nitrite Ql (U) Negative Negative [facility] pH (U) 6.0 [pH] 5.0 - 8.0 pH [facility] Protein (U) [Mass/Vol] Negative Negat chan mg/dL [facility] Specific gravity (U) [Rel density] 1.008 1.005 - 1.030 [facility] Urobilinogen (U) [Mass/Vol] Normal Normal (0-1) mg/dL [facility] CBC W Auto Differential pane l (Bld)Ordered By: Zoey Delaney on 08-10-2023 Erythrocyte distribution width (RBC) [Ratio] 14.7 % 11.5 - 15.0 % [facility] Hematocrit (Bld) [Volume fraction] 46.8 % 40.0 - 52.0 % [facility] Hemoglobin (Bld) [Mass/Vol] 15.6 g/dL 13.0 - 18.0 g/dL [facility] Interpretation and review of laboratory results Normal [facility] MCH (RBC) [Entitic mass] 31.0 pg 26.0 - 34.0 pg [facility] MCHC (RBC) [Mass/Vol] 33.3 % 30.5 - 36.0 % [facility] MCV (RBC) [Entitic vol] 93.0 fL 77.0 - 99.0 fL [facility] Platelet mean volume (Bld) [Entitic vol] 9.3 fL 9.0 - 12.7 fL [facility] Platelets (Bld) [#/Vol] 273 10*3/uL 140 - 440 10*3/uL [facility] RBC (Bld) [#/Vol] 5.03 10*6/uL 4.40 - 5.9 0 10*6/uL [facility] WBC (Bld) [#/Vol] 9.9 10*3/uL 3.6 - 10.7 10*3/uL [facility] CK [Catalytic activity/Vol]o n 08-10-2023 Interpretation and review of laboratory results Normal [facility] Comprehensive metabolic 1998 panelon 08-10-2023 Albumin [Mass/Vol] 5.0 g/dL 3.5 - 5.0 g/dL [facility] ALP [Catalytic activity/Vol] 135 U/L High 38 - 126 U/L [facility] ALT [Catalytic activity/Vol] 176 U/L High 0 - 49 U/L [facility] Anion gap [Moles/Vol] 22 mmol/L High 3 - 13 mmol/L [facility] AST [Catalytic activity/Vol] 237 U/L High 15 - 46 U/L [facility] Bilirubin [Mass/Vol] 0.7 mg/dL 0.2 - 1 .3 mg/dL [facility] Calcium [Mass/Vol] 9.1 mg/dL 8.4 - 10. 4 mg/dL [facility] Chloride [Moles/Vol] 105 mmol/L 98 - 10 7 mmol/L [facility] CO2 [Moles/Vol] 18 mmol/L Low 22 - 30 mmol/L [facility] Creatinine [Mass/Vol] 0.78 mg/dL 0.66 - 1.25 mg/dL [facility] GFR/1.73 sq M.predicted MDRD (S/P/Bld) [Vol rate/Area] - PINF [facility] Comment on above: Calculation based on the Chronic Kidney Disease Epidemiology Collaboration (CKD-EPI) equation refit without adjustment for race Glucose [Mass/Vol] 112 mg/dL High 70 - 100 mg/dL [facility] Interpretation and review of laboratory results Abnormal [facility] Potassium [Moles/Vol] 3.8 mmol/L 3.5 - 5.1 mmol/L [facility] Protein [Mass/Vol] 8.8 g/dL High 6.3 - 8.2 g/dL [facility] Sodium [Moles/Vol] 145 mmol/L 135 - 145 mmol/L [facility] Urea nitrogen [Mass/Vol] 5 mg/dL Low 9 - 20 mg/dL [facility] Ethanol (Bld) [Mass/Vol]Orde red By: Amber Junior on 08-10-2023 Ethanol [Mass/Vol] 0.392 g/dL Critically high 0.000 - 0.010 g/dL [facility] Interpretation and review of laboratory results Abnormal [facility] Laboratory - Chemistry and C hemistry - challengeon 08-10-2023 Lipase [Catalytic activity/Vol] 246 U/L 23 - 300 U/L [facility] Beta hydroxybutyrate [Mass/Vol] 1.76 mg/dL 0.20 - 2.81 mg/dL [facility] CK [Catalytic activity/Vol] 125 U/L 30 - 170 U/L [facility] Laboratory - Chemistry and C hemistry - challengeOrdered By: Frances Eisenberg on 08-10-2023 Base excess Calc (BldV) [Moles/Vol] -1.7000 mmol/L -3.0 - 3.0 mmol/L [facility] CO2 (BldV) [Partial pressure] 38.1 mm[Hg] Low [facility] CO2 [Moles/Vol] 24.0 mmol/L 24.0 - 28.0 mmol/L [facility] HCO3 (Bld) [Moles/Vol] 22.8 mmol/L Low 23.0 - 27.0 mmol/L [facility] Oxygen (BldV) [Partial pressure] 55.0 mm[Hg] mm Hg [facility] pH (BldV) 7.395 [pH] 7.330 - 7.430 [facility] Laboratory - Hematology and Cell countsOrdered By: Frances Eisenberg on 08-10-2023 Hemoglobin (Bld) [Mass/Vol] 15.8 g/dL Screen only [facility] Laboratory - Hematology and Cell countson 08-10-2023 Anisocytosis Ql (Bld) Slight Abnormal (none) [facility] Band form neutrophils (Bld) [#/Vol] 0.2 10*3/uL High NINF - 0.0 10*3/uL [facility] Band form neutrophils/100 WBC (Bld) 2 % High NINF - 0 % [facility] Dominic cells LM Ql (Bld) Rare Abnormal (none) [facility] Lymphocytes (Bld) [#/Vol] 4.9 10*3/uL High 1.0 - 4.3 10*3/uL [facility] Lymphocytes/100 WBC (Bld) 49 % High 15 - 45 % [facility] Macrocytes Ql (Bld) Slight Abnormal (none) [facility] Monocytes (Bld) [#/Vol] 0.5 10*3/uL 0.0 - 0.9 10*3/uL [facility] Monocytes/100 WBC (Bld) 5 % 5 - 13 % S [facility] Neutrophils (Bld) [#/Vol] 3.9 10*3/uL 1.8 - 7.5 10*3/uL [facility] Poikilocytosis LM Ql (Bld) Rare Abnormal (none) [facility] Polychromasia LM Ql (Bld) Rare Abnormal (none) [facility] RBC morphology finding Nom (Bld) abnormal [facility] Segmented neutrophils/100 WBC (Bld) 37 % Low 38 - 82 % [facility] Variant lymphocytes (Bld) [#/Vol] 0.8 10*3/uL High NINF - 0.0 10*3/uL [facility] Variant lymphocytes/100 WBC (Bld) 8 % High NINF - 0 % [facility] Laboratory - Microbiology an d Antimicrobial susceptibilityOrdered By: Marilynn Flaherty on 08-10-2023 SARS-CoV-2 (COVID-19) Ag IA.rapid Ql (Resp) Negative Negative [facility] Comment on above: A negative result do es not rule out the possibility of SARS-CoV-2 infection. NAAT-based methods should be considered for symptomatic patients presenting greater than seven days after onset of symptoms. Method: Lateral flow immunoassay. Fact sheets for healthcare providers and patients can be found at the following sites: https://www.fda.gov/media/038398/download https://www.fda.gov/media/014255/download Lipase [Catalytic activity/V ol]on 08-10-2023 Interpretation and review of laboratory results Normal [facility] No Panel InformationOrdered By: Frances Eisenberg on 08-10-2023 Interpretation and review of laboratory results Abnormal [facility] Source Of Oxygen Room Air [facility] Assessment of oxygenation is best done with an arterial blood gas determination. Reference ranges for pO2, bicarbonate, and base excess are for mixed venous blood. Specimens drawn from a peripheral vein will often have higher values. [facility] No Panel Informationon 08-09 Interpretation and review of laboratory results Normal [facility] Atypical Lymphocytes Manual 8 [facility] Bands Manual 2 [facility] Basophils Manual [facility] Blasts Manual [facility] Eosinophils Manual [facility] Interpretation and review of laboratory results Abnormal [facility] Lymphocytes Manual 49 [facility] Metamyelocytes Manual [facility] Monocytes Manual 5 [facility] Myelocytes Manual [facility] Neutrophils Manual 37 [facility] Promyelocytes Manual [facility] Unclassified Cells, Manual [facility] SARS-CoV-2 (COVID-19) Ag IA. rapid Ql (Resp)Ordered By: Marilynn Flaherty on 08-10-2023 Interpretation and review of laboratory results Normal [facility] Vital signsOrdered By: Nedra Eisenberg on 08-10-2023 Oxygen saturation in Venous blood 84.7 % [facility] CBC W Auto Differential pane l (Bld)on 06-28-2023 Basophils (Bld) [#/Vol] 0.0 10*3/uL 0.0 - 0.2 10*3/uL [facility] Basophils/100 WBC (Bld) 0.7 % 0.0 - 2.0 % [facility] Eosinophils (Bld) [#/Vol] 0.1 10*3/uL 0.0 - 0.5 10*3/uL [facility] Eosinophils/100 WBC (Bld) 2.4 % 0.0 - 6.0 % [facility] Erythrocyte distribution width (RBC) [Ratio] 15.0 % 11.5 - 15.0 % [facility] Hematocrit (Bld) [Volume fraction] 37.8 % Low 40.0 - 52.0 % [facility] Hemoglobin (Bld) [Mass/Vol] 12.8 g/dL Low 13.0 - 18.0 g/dL [facility] Immature granulocytes (Bld) [#/Vol] 0.0 10*3/uL NINF - 0.1 10*3/uL [facility] Immature granulocytes/100 WBC (Bld) 0.7 % 0.0 - 2.0 % [facility] Interpretation and review of laboratory results Abnormal [facility] IPF 5 [facility] Lymphocytes (Bld) [#/Vol] 2.2 10*3/uL 1.0 - 4.3 10*3/uL [facility] Lymphocytes/100 WBC (Bld) 49.3 % High 15.0 - 45.0 % [facility] MCH (RBC) [Entitic mass] 30.4 pg 26.0 - 34.0 pg [facility] MCHC (RBC) [Mass/Vol] 33.9 % 30.5 - 36.0 % [facility] MCV (RBC) [Entitic vol] 89.8 fL 77.0 - 99.0 fL [facility] Monocytes (Bld) [#/Vol] 0.3 10*3/uL 0.0 - 0.9 10*3/uL [facility] Monocytes/100 WBC (Bld) 6.9 % 5.0 - 13.0 % [facility] Neutrophils (Bld) [#/Vol] 1.8 10*3/uL 1.8 - 7.5 10*3/uL [facility] Neutrophils/100 WBC (Bld) 40.0 % 38.0 - 82.0 % [facility] Nucleated RBC/100 WBC (Bld) [Ratio] 0.0 % [facility] Platelet mean volume (Bld) [Entitic vol] 10.4 fL 9.0 - 12.7 fL [facility] Platelets (Bld) [#/Vol] 136 10*3/uL Low 140 - 440 10*3/uL [facility] RBC (Bld) [#/Vol] 4.21 10*6/uL Low 4.40 - 5.9 0 10*6/uL [facility] WBC (Bld) [#/Vol] 4.5 10*3/uL 3.6 - 10.7 10*3/uL [facility] Comprehensive metabolic 1998 panelon 06-28-2023 Albumin [Mass/Vol] 3.7 g/dL 3.5 - 5.0 g/dL [facility] ALP [Catalytic activity/Vol] 102 U/L 38 - 126 U/L [facility] ALT [Catalytic activity/Vol] 178 U/L High 0 - 49 U/L [facility] Anion gap [Moles/Vol] 7 mmol/L 3 - 13 mmol/L [facility] AST [Catalytic activity/Vol] 186 U/L High 15 - 46 U/L [facility] Bilirubin [Mass/Vol] 0.7 mg/dL 0.2 - 1 .3 mg/dL [facility] Calcium [Mass/Vol] 8.7 mg/dL 8.4 - 10. 4 mg/dL [facility] Chloride [Moles/Vol] 107 mmol/L 98 - 10 7 mmol/L [facility] CO2 [Moles/Vol] 22 mmol/L 22 - 30 mmol/L [facility] Creatinine [Mass/Vol] 0.62 mg/dL Low 0.66 - 1.25 mg/dL [facility] GFR/1.73 sq M.predicted MDRD (S/P/Bld) [Vol rate/Area] - PINF [facility] Comment on above: Calculation based on the Chronic Kidney Disease Epidemiology Collaboration (CKD-EPI) equation refit without adjustment for race Glucose [Mass/Vol] 108 mg/dL High 70 - 100 mg/dL [facility] Interpretation and review of laboratory results Abnormal [facility] Potassium [Moles/Vol] 4.1 mmol/L 3.5 - 5.1 mmol/L [facility] Protein [Mass/Vol] 6.9 g/dL 6.3 - 8.2 g/dL [facility] Sodium [Moles/Vol] 135 mmol/L 135 - 145 mmol/L [facility] Urea nitrogen [Mass/Vol] 4 mg/dL Low 9 - 20 mg/dL [facility] CBC W Auto Differential pane l (Bld)on 06-27-2023 Basophils (Bld) [#/Vol] 0.0 10*3/uL 0.0 - 0.2 10*3/uL [facility] Basophils/100 WBC (Bld) 0.6 % 0.0 - 2.0 % [facility] Eosinophils (Bld) [#/Vol] 0.1 10*3/uL 0.0 - 0.5 10*3/uL [facility] Eosinophils/100 WBC (Bld) 1.2 % 0.0 - 6.0 % [facility] Erythrocyte distribution width (RBC) [Ratio] 14.6 % 11.5 - 15.0 % [facility] Hematocrit (Bld) [Volume fraction] 39.1 % Low 40.0 - 52.0 % [facility] Hemoglobin (Bld) [Mass/Vol] 13.0 g/dL 13.0 - 18.0 g/dL [facility] Immature granulocytes (Bld) [#/Vol] 0.0 10*3/uL NINF - 0.1 10*3/uL [facility] Immature granulocytes/100 WBC (Bld) 0.4 % 0.0 - 2.0 % [facility] Interpretation and review of laboratory results Abnormal [facility] IPF 5 [facility] Lymphocytes (Bld) [#/Vol] 2.3 10*3/uL 1.0 - 4.3 10*3/uL [facility] Lymphocytes/100 WBC (Bld) 48.2 % High 15.0 - 45.0 % [facility] MCH (RBC) [Entitic mass] 29.8 pg 26.0 - 34.0 pg [facility] MCHC (RBC) [Mass/Vol] 33.2 % 30.5 - 36.0 % [facility] MCV (RBC) [Entitic vol] 89.7 fL 77.0 - 99.0 fL [facility] Monocytes (Bld) [#/Vol] 0.3 10*3/uL 0.0 - 0.9 10*3/uL [facility] Monocytes/100 WBC (Bld) 7.0 % 5.0 - 13.0 % [facility] Neutrophils (Bld) [#/Vol] 2.1 10*3/uL 1.8 - 7.5 10*3/uL [facility] Neutrophils/100 WBC (Bld) 42.6 % 38.0 - 82.0 % [facility] Nucleated RBC/100 WBC (Bld) [Ratio] 0.0 % [facility] Platelet mean volume (Bld) [Entitic vol] 10.1 fL 9.0 - 12.7 fL [facility] Platelets (Bld) [#/Vol] 135 10*3/uL Low 140 - 440 10*3/uL [facility] RBC (Bld) [#/Vol] 4.36 10*6/uL Low 4.40 - 5.9 0 10*6/uL [facility] WBC (Bld) [#/Vol] 4.9 10*3/uL 3.6 - 10.7 10*3/uL [facility] Comprehensive metabolic 1998 panelon 06-27-2023 Albumin [Mass/Vol] 4.0 g/dL 3.5 - 5.0 g/dL [facility] [employer] ALP [Catalytic activity/Vol] 107 U/L 38 - 126 U/L [facility] ALT [Catalytic activity/Vol] 165 U/L High 0 - 49 U/L [facility] Anion gap [Moles/Vol] 8 mmol/L 3 - 13 mmol/L [facility] AST [Catalytic activity/Vol] 169 U/L High 15 - 46 U/L [facility] Bilirubin [Mass/Vol] 0.7 mg/dL 0.2 - 1 .3 mg/dL [facility] Calcium [Mass/Vol] 8.9 mg/dL 8.4 - 10. 4 mg/dL [facility] Chloride [Moles/Vol] 105 mmol/L 98 - 10 7 mmol/L [facility] CO2 [Moles/Vol] 22 mmol/L 22 - 30 mmol/L [facility] Creatinine [Mass/Vol] 0.72 mg/dL 0.66 - 1.25 mg/dL [facility] GFR/1.73 sq M.predicted MDRD (S/P/Bld) [Vol rate/Area] - PINF [facility] Comment on above: Calculation based on the Chronic Kidney Disease Epidemiology Collaboration (CKD-EPI) equation refit without adjustment for race Glucose [Mass/Vol] 97 mg/dL 70 - 100 mg/dL [facility] Interpretation and review of laboratory results Abnormal [facility] Potassium [Moles/Vol] 4.0 mmol/L 3.5 - 5.1 mmol/L [facility] Protein [Mass/Vol] 7.0 g/dL 6.3 - 8.2 g/dL [facility] Sodium [Moles/Vol] 135 mmol/L 135 - 145 mmol/L [facility] Urea nitrogen [Mass/Vol] 5 mg/dL Low 9 - 20 mg/dL [facility] CBC W Auto Differential pane l (Bld)on 06-26-2023 Basophils (Bld) [#/Vol] 0.0 10*3/uL 0.0 - 0.2 10*3/uL [facility] Basophils/100 WBC (Bld) 0.6 % 0.0 - 2.0 % [facility] Eosinophils (Bld) [#/Vol] 0.1 10*3/uL 0.0 - 0.5 10*3/uL [facility] Eosinophils/100 WBC (Bld) 1.3 % 0.0 - 6.0 % [facility] Erythrocyte distribution width (RBC) [Ratio] 14.7 % 11.5 - 15.0 % [facility] Hematocrit (Bld) [Volume fraction] 37.9 % Low 40.0 - 52.0 % [facility] Hemoglobin (Bld) [Mass/Vol] 12.7 g/dL Low 13.0 - 18.0 g/dL [facility] Immature granulocytes (Bld) [#/Vol] 0.0 10*3/uL NINF - 0.1 10*3/uL [facility] Immature granulocytes/100 WBC (Bld) 0.4 % 0.0 - 2.0 % [facility] Interpretation and review of laboratory results Abnormal [facility] Lymphocytes (Bld) [#/Vol] 2.5 10*3/uL 1.0 - 4.3 10*3/uL [facility] Lymphocytes/100 WBC (Bld) 52.5 % High 15.0 - 45.0 % [facility] MCH (RBC) [Entitic mass] 29.5 pg 26.0 - 34.0 pg [facility] MCHC (RBC) [Mass/Vol] 33.5 % 30.5 - 36.0 % [facility] MCV (RBC) [Entitic vol] 88.1 fL 77.0 - 99.0 fL [facility] Monocytes (Bld) [#/Vol] 0.3 10*3/uL 0.0 - 0.9 10*3/uL [facility] Monocytes/100 WBC (Bld) 6.3 % 5.0 - 13.0 % [facility] Neutrophils (Bld) [#/Vol] 1.9 10*3/uL 1.8 - 7.5 10*3/uL [facility] Neutrophils/100 WBC (Bld) 38.9 % 38.0 - 82.0 % [facility] Nucleated RBC/100 WBC (Bld) [Ratio] 0.0 % [facility] [employer] Platelet mean volume (Bld) [Entitic vol] 10.1 fL 9.0 - 12.7 fL [facility] Platelets (Bld) [#/Vol] 153 10*3/uL 140 - 440 10*3/uL [facility] RBC (Bld) [#/Vol] 4.30 10*6/uL Low 4.40 - 5.9 0 10*6/uL [facility] WBC (Bld) [#/Vol] 4.8 10*3/uL 3.6 - 10.7 10*3/uL [facility] Comprehensive metabolic 1998 panelon 06-26-2023 Albumin [Mass/Vol] 3.9 g/dL 3.5 - 5.0 g/dL [facility] ALP [Catalytic activity/Vol] 104 U/L 38 - 126 U/L [facility] ALT [Catalytic activity/Vol] 143 U/L High 0 - 49 U/L [facility] Anion gap [Moles/Vol] 9 mmol/L 3 - 13 mmol/L [facility] AST [Catalytic activity/Vol] 119 U/L High 15 - 46 U/L [facility] Bilirubin [Mass/Vol] 1.0 mg/dL 0.2 - 1 .3 mg/dL [facility] Calcium [Mass/Vol] 9.0 mg/dL 8.4 - 10. 4 mg/dL [facility] Chloride [Moles/Vol] 103 mmol/L 98 - 10 7 mmol/L [facility] CO2 [Moles/Vol] 22 mmol/L 22 - 30 mmol/L [facility] Creatinine [Mass/Vol] 0.67 mg/dL 0.66 - 1.25 mg/dL [facility] GFR/1.73 sq M.predicted MDRD (S/P/Bld) [Vol rate/Area] - PINF [facility] Comment on above: Calculation based on the Chronic Kidney Disease Epidemiology Collaboration (CKD-EPI) equation refit without adjustment for race Glucose [Mass/Vol] 108 mg/dL High 70 - 100 mg/dL [facility] Interpretation and review of laboratory results Abnormal [facility] Potassium [Moles/Vol] 3.7 mmol/L 3.5 - 5.1 mmol/L [facility] Protein [Mass/Vol] 7.1 g/dL 6.3 - 8.2 g/dL [facility] Sodium [Moles/Vol] 134 mmol/L Low 135 - 145 mmol/L [facility] Urea nitrogen [Mass/Vol] 7 mg/dL Low 9 - 20 mg/dL [facility] CBC W Auto Differential pane l (Bld)Ordered By: Megha Lopez on 06-25-2023 Basophils (Bld) [#/Vol] 0.0 10*3/uL 0.0 - 0.2 10*3/uL [facility] Basophils/100 WBC (Bld) 0.6 % 0.0 - 2.0 % [facility] Eosinophils (Bld) [#/Vol] 0.0 10*3/uL 0.0 - 0.5 10*3/uL [facility] Eosinophils/100 WBC (Bld) 0.6 % 0.0 - 6.0 % [facility] Erythrocyte distribution width (RBC) [Ratio] 14.9 % 11.5 - 15.0 % [facility] Hematocrit (Bld) [Volume fraction] 38.4 % Low 40.0 - 52.0 % [facility] Hemoglobin (Bld) [Mass/Vol] 12.6 g/dL Low 13.0 - 18.0 g/dL [facility] Immature granulocytes (Bld) [#/Vol] 0.0 10*3/uL NINF - 0.1 10*3/uL [facility] Immature granulocytes/100 WBC (Bld) 0.4 % 0.0 - 2.0 % [facility] Interpretation and review of laboratory results Abnormal [facility] Lymphocytes (Bld) [#/Vol] 2.3 10*3/uL 1.0 - 4.3 10*3/uL [facility] Lymphocytes/100 WBC (Bld) 46.7 % High 15.0 - 45.0 % [facility] MCH (RBC) [Entitic mass] 29.0 pg 26.0 - 34.0 pg [facility] MCHC (RBC) [Mass/Vol] 32.8 % 30.5 - 36.0 % [facility] MCV (RBC) [Entitic vol] 88.3 fL 77.0 - 99.0 fL [facility] Monocytes (Bld) [#/Vol] 0.4 10*3/uL 0.0 - 0.9 10*3/uL [facility] Monocytes/100 WBC (Bld) 7.8 % 5.0 - 13.0 % [facility] Neutrophils (Bld) [#/Vol] 2.2 10*3/uL 1.8 - 7.5 10*3/uL [facility] Neutrophils/100 WBC (Bld) 43.9 % 38.0 - 82.0 % [facility] Nucleated RBC/100 WBC (Bld) [Ratio] 0.0 % [facility] Platelet mean volume (Bld) [Entitic vol] 10.0 fL 9.0 - 12.7 fL [facility] Platelets (Bld) [#/Vol] 172 10*3/uL 140 - 440 10*3/uL [facility] RBC (Bld) [#/Vol] 4.35 10*6/uL Low 4.40 - 5.9 0 10*6/uL [facility] WBC (Bld) [#/Vol] 5.0 10*3/uL 3.6 - 10.7 10*3/uL [facility] CK [Catalytic activity/Vol]o n 06-25-2023 Interpretation and review of laboratory results Normal [facility] Cobalamin (Vitamin B12) [Mas s/Vol]on 06-25-2023 Interpretation and review of laboratory results Normal [facility] Comprehensive metabolic 1998 panelon 06-25-2023 Albumin [Mass/Vol] 4.0 g/dL 3.5 - 5.0 g/dL [facility] ALP [Catalytic activity/Vol] 97 U/L 38 - 126 U/L [facility] ALT [Catalytic activity/Vol] 179 U/L High 0 - 49 U/L [facility] Anion gap [Moles/Vol] 10 mmol/L 3 - 13 mmol/L [facility] AST [Catalytic activity/Vol] 145 U/L High 15 - 46 U/L [facility] Bilirubin [Mass/Vol] 0.8 mg/dL 0.2 - 1 .3 mg/dL [facility] Calcium [Mass/Vol] 8.1 mg/dL Low 8.4 - 10. 4 mg/dL [facility] Chloride [Moles/Vol] 109 mmol/L High 98 - 10 7 mmol/L [facility] CO2 [Moles/Vol] 19 mmol/L Low 22 - 30 mmol/L [facility] Creatinine [Mass/Vol] 0.69 mg/dL 0.66 - 1.25 mg/dL [facility] GFR/1.73 sq M.predicted MDRD (S/P/Bld) [Vol rate/Area] - PINF [facility] Comment on above: Calculation based on the Chronic Kidney Disease Epidemiology Collaboration (CKD-EPI) equation refit without adjustment for race Glucose [Mass/Vol] 101 mg/dL High 70 - 100 mg/dL [facility] Interpretation and review of laboratory results Abnormal [facility] Potassium [Moles/Vol] 4.4 mmol/L 3.5 - 5.1 mmol/L [facility] Protein [Mass/Vol] 7.2 g/dL 6.3 - 8.2 g/dL [facility] Sodium [Moles/Vol] 139 mmol/L 135 - 145 mmol/L [facility] Urea nitrogen [Mass/Vol] 6 mg/dL Low 9 - 20 mg/dL [facility] HCV Ab IA Qlon 06-25-2023 Interpretation and review of laboratory results Normal [facility] HIV 1+2 Ab+HIV1 p24 Ag IA Ql Ordered By: Vidhi Hopkins on 06-25-2023 Interpretation and review of laboratory results Normal [facility] Laboratory - Chemistry and C hemistry - challengeon 06-25-2023 Average glucose Estimated from glycated hemoglobin (Bld) [Mass/Vol] 117 mg/dL [facility] Cobalamin (Vitamin B12) [Mass/Vol] 517 pg/mL 239 - 931 pg/mL [facility] TSH Qn 1.435 m[IU]/L [facility] Magnesium [Mass/Vol] 2.0 mg/dL 1.6 - 2 .3 mg/dL [facility] CK [Catalytic activity/Vol] 143 U/L 30 - 170 U/L [facility] Lactate [Moles/Vol] 1.5 mmol/L 0.7 - 2. 0 mmol/L [facility] Laboratory - Coagulationon 0 06-25-2023 aPTT Coag (PPP) [Time] 24.8 s 20.0 - 30.5 s [facility] INR Coag (PPP) [Relative time] 1.0 {INR} 0.9 - 1.1 [facility] Comment on above: Recommended Anticoag ulant Therapy: [...] [Time] 11.2 s 9.0 - 12.0 s [facility] - Hematology and Cell countson 06-25-2023 HbA1c (Bld) [Mass fraction] 5.7 % High NINF - 5.7 % [facility] Comment on above: Normal less than 5.7 % Prediabetes 5.7% to 6.4% Diabetes 6.5% or higher --HgbA1C levels may not be accurate in patients who have renal disease, received recent blood transfusions, are anemic, or who have dyshemoglobinemia. Laboratory - Microbiology an d Antimicrobial susceptibilityOrdered By: Vidhi Hopkins on 06-25-2023 HIV 1+2 Ab+HIV1 p24 Ag IA Ql Non-Reactive Nonreactive [facility] Comment on above: The specimen was non -reactive for HIV-1 and HIV-2 antibodies and p24 antigen using an FDA-cleared 4th generation HIV test. Based on this non-reactive screen result, further reflexive testing was not indicated and was, therefore, not performed. Laboratory - Microbiology an d Antimicrobial susceptibilityon 06-25-2023 HCV Ab IA Ql Not detected Not Detected [facility] Comment on above: Patients with DETECT ED Hepatitis C Ab results should have a new specimen submitted for supplemental testing with a Hepatitis C Quantitative RNA assay (viral load), if clinically indicated. No Panel Informationon 06-24 Interpretation and review of laboratory results Abnormal [facility] Interpretation and review of laboratory results Normal [facility] Interpretation and review of laboratory results Normal [facility] Interpretation and review of laboratory results Normal [facility] No Panel InformationOrdered By: Margie Guerra on 06-25-2023 BUPRENORPHINE SCREEN Negative Negative [facility] Buprenorphine (Suboxone) has been screened for by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 mg/dL [facility] GFR/1.73 sq M.predicted MDRD (S/P/Bld) [Vol rate/Area] - PINF [facility] Comment on above: Calculation based on the Chronic Kidney Disease Epidemiology Collaboration (CKD-EPI) equation refit without adjustment for race Glucose [Mass/Vol] 107 mg/dL High 70 - 100 mg/dL [facility] Potassium [Moles/Vol] 3.9 mmol/L 3.5 - 5.1 mmol/L [facility] Protein [Mass/Vol] 8.1 g/dL 6.3 - 8.2 g/dL [facility] Sodium [Moles/Vol] 143 mmol/L 135 - 145 mmol/L [facility] Urea nitrogen [Mass/Vol] 6 mg/dL Low 9 - 20 mg/dL [facility] Ethanol (Bld) [Mass/Vol]on 0 07-11-2022 Ethanol [Mass/Vol] 0.352 g/dL Critically high 0.000 - 0.010 g/dL [facility] Interpretation and review of laboratory results Abnormal [facility] Laboratory - Chemistry and C hemistry - challengeon 07-11-2022 CK [Catalytic activity/Vol] 172 U/L High 30 - 170 U/L [facility] Laboratory - Drug toxicology on 07-11-2022 Salicylates [Mass/Vol] mg/dL 0.0 - 20.0 mg/dL [facility] Amphetamines Screen method >1000 ng/mL Ql (U) Negative [facility] Barbiturates Screen method >200 ng/mL Ql (U) Negative [facility] Benzodiazepines Ql (U) Negative [facility] Methadone Screen Ql (U) Negative S [facility] Opiates Screen Ql (U) Negative [facility] oxyCODONE Ql (U) Negative [facility] Phencyclidine Ql (U) Negative [facility] Laboratory - Microbiology an d Antimicrobial susceptibilityon 07-11-2022 FLUAV RNA PREETHI+probe Ql (Resp) Not detected Not Detected [facility] FLUBV RNA PREETHI+probe Ql (Resp) Not detected Not Detected [facility] RSV RNA PREETHI+probe Ql (Resp) Not detected Not Detected [facility] SARS-CoV-2 (COVID-19) RNA PREETHI+probe Ql (Resp) Not detected Not Detected [facility] SARS-CoV-2 (COVID-19) RNA PREETHI+probe Ql (Unsp spec) Methodology: real-time, RT-PCR The SARS-CoV-2, Flu A/B, and RSV Combo assay is intended for in vitro diagnostic use under the FDA Emergency Use Authorization (EUA). This test has not been FDA cleared or approved. In compliance with this authorization, please visit www.fda.gov/media/44785 5/download or www.fda.gov/media/98760 6/download to access the applicable information sheets. [employer] No Panel InformationOrdered By: Nadine Rosas on 07-11-2022 P [place] 50 degrees WebMD Work Phone: [place] Interval 164 ms [employer]ownce Phone: QRS [place] 9 degrees Pownce Phone: QRSD Interval 93 ms [employer] Phone: QT Interval 368 ms [employer]ownce Phone: QTC Interval 463 ms [employer]ce Phone: T Wave [place] 35 degrees Pownce Phone: Pownce Phone: No Panel Informationon 07-11 Sinus rhythm Left ventricular hypertrophy Electronically Signed On 07-11-2022 10:40:02 EDT by Nadine Rosas CV Nadine Bolaños D O - 07/11/2022 IMPRESSION: Sinus rhythm Left ventricular hypertrophy Electronically Signed On 07-11-2022 10:40:02 EDT by Nadine Rosas [facility] [employer] Interpretation and review of laboratory results Abnormal [employer] CRESCEL COCAINE METAB. SCREEN Negative Sum [facility] The expected value f or all of [...] is needed, request confirmation under separate order. [facility] SARS-CoV-2, Flu A/B, and RSV Comboon 07-11-2022 Interpretation and review of laboratory results Normal [facility] Salicylates [Mass/Vol]on Interpretation and review of laboratory results Normal [facility] Urinalysis complete panel (U )on 07-11-2022 Bilirubin Ql (U) Negative Negative mg/dL [facility] Clarity (U) Clear Clear [facility] Color (U) Colorless Lt. Yellow [facility] Glucose Ql (U) Normal Normal (<70) mg/dL [facility] Hemoglobin Ql (U) Negative Negative mg/dL [facility] Interpretation and review of laboratory results Abnormal [facility] Ketones (U) [Mass/Vol] Negative Negat chan mg/dL [facility] Leukocyte esterase Test strip Ql (U) Negative Negative Teofilo/uL [facility] Nitrite Ql (U) Negative Negative [facility] pH (U) 5.5 [pH] 5.0 - 8.0 pH [facility] Protein (U) [Mass/Vol] Negative Negat chan mg/dL [facility] Specific gravity (U) [Rel density] 1.002 Low 1.005 - 1.030 [facility] Urobilinogen (U) [Mass/Vol] Normal Normal (0-1) mg/dL [facility] Vital signsOrdered By: Jesse Rosas on 07-11-2022 Heart rate 95 /min bpm [facility] Work Phone: CKon 05-25-2022 CK [Catalytic activity/Vol] 105 U/L 30 - 170 U/L [facility] CK [Catalytic activity/Vol]o n 05-25-2022 Interpretation and review of laboratory results Normal [facility] Comprehensive metabolic 1998 panelon 05-25-2022 Albumin [Mass/Vol] 4.7 g/dL 3.5 - 5.0 g/dL [facility] ALP [Catalytic activity/Vol] 106 U/L 38 - 126 U/L [facility] ALT [Catalytic activity/Vol] 309 U/L High 0 - 49 U/L [facility] Anion gap [Moles/Vol] 8 mmol/L 3 - 13 mmol/L [facility] AST [Catalytic activity/Vol] 418 U/L High 15 - 46 U/L [facility] Bilirubin [Mass/Vol] 1.0 mg/dL 0.2 - 1 .3 mg/dL [facility] Calcium [Mass/Vol] 10.2 mg/dL 8.4 - 10. 4 mg/dL [facility] Chloride [Moles/Vol] 104 mmol/L 98 - 10 7 mmol/L [facility] CO2 [Moles/Vol] 25 mmol/L 22 - 30 mmol/L [facility] Creatinine [Mass/Vol] 0.61 mg/dL Low 0.66 - 1.25 mg/dL [facility] GFR/1.73 sq M.predicted MDRD (S/P/Bld) [Vol rate/Area] - PINF [facility] Comment on above: Calculation based on the Chronic Kidney Disease Epidemiology Collaboration (CKD-EPI) equation refit without adjustment for race Glucose [Mass/Vol] 103 mg/dL High 70 - 100 mg/dL [facility] Interpretation and review of laboratory results Abnormal [facility] Potassium [Moles/Vol] 4.3 mmol/L 3.5 - 5.1 mmol/L [facility] Protein [Mass/Vol] 8.0 g/dL 6.3 - 8.2 g/dL [facility] Sodium [Moles/Vol] 137 mmol/L 135 - 145 mmol/L [facility] Urea nitrogen [Mass/Vol] 7 mg/dL Low 9 - 20 mg/dL [facility] No Panel Informationon 05-25 [facility] CK [Catalytic activity/Vol]o n 05-24-2022 Interpretation and review of laboratory results Abnormal [facility] Laboratory - Chemistry and C hemistry - challengeon 05-24-2022 CK [Catalytic activity/Vol] 559 U/L High 30 - 170 U/L [facility] Laboratory - Drug toxicology Ordered By: Nevaeh Erickson on 05-24-2022 Amphetamines Screen method >1000 ng/mL Ql (U) Positive [facility] Barbiturates Screen method >200 ng/mL Ql (U) Negative [facility] Benzodiazepines Ql (U) Positive [facility] Methadone Screen Ql (U) Negative S [facility] Opiates Screen Ql (U) Negative [facility] oxyCODONE Ql (U) Negative [facility] Phencyclidine Ql (U) Negative [facility] Laboratory - Microbiology an d Antimicrobial susceptibilityOrdered By: Dada Rich on 05-24-2022 SARS-CoV-2 (COVID-19) Ag IA.rapid Ql (Resp) Negative Negative [facility] Comment on above: A negative result do es not rule out the possibility of SARS-CoV-2 infection. NAAT-based methods should be considered for symptomatic patients presenting greater than seven days after onset of symptoms. Method: Lateral flow immunoassay. Fact sheets for healthcare providers and patients can be found at the following sites: https://www.[place].gov/media/781541/download https://www.[place].gov/media/832409/download No Panel InformationOrdered By: Nevaeh Erickson on 05-24-2022 COCAINE METAB. SCREEN Negative Sum [facility] The expected value f or all [...] is needed, request confirmation under separate order. [facility] SARS-CoV-2 (COVID-19) Ag IA. rapid Ql (Resp)Ordered By: Dada Rich on 05-24-2022 Interpretation and review of laboratory results Normal [facility] Urinalysis complete panel (U )on 05-24-2022 Bilirubin Ql (U) Negative Negative mg/dL [facility] Clarity (U) Clear Clear [facility] Color (U) Yellow Lt. Yellow [facility] Glucose Ql (U) Normal Normal (<70) mg/dL [facility] Hemoglobin Ql (U) Negative Negative mg/dL [facility] Interpretation and review of laboratory results Normal [facility] Ketones (U) [Mass/Vol] Negative Negat chan mg/dL [facility] Leukocyte esterase Test strip Ql (U) Negative Negative Teofilo/uL [facility] Nitrite Ql (U) Negative Negative [facility] pH (U) 5.5 [pH] 5.0 - 8.0 pH [facility] Protein (U) [Mass/Vol] Negative Negat chan mg/dL [facility] Specific gravity (U) [Rel density] 1.012 1.005 - 1.030 [facility] Urobilinogen (U) [Mass/Vol] Normal Normal (0-1) mg/dL [facility] CBC W Auto Differential pane l (Bld)Ordered By: Brandy Morelos on 05-23-2022 Basophils (Bld) [#/Vol] 0.1 10*3/uL 0.0 - 0.2 10*3/uL [facility] Basophils/100 WBC (Bld) 1.5 % 0.0 - 2.0 % [facility] Eosinophils (Bld) [#/Vol] 0.1 10*3/uL 0.0 - 0.5 10*3/uL [facility] Eosinophils/100 WBC (Bld) 1.7 % 1.0 - 6.0 % [facility] Erythrocyte distribution width (RBC) [Ratio] 13.9 % 11.5 - 14.5 % [facility] Hematocrit (Bld) [Volume fraction] 43.2 % 40.0 - 52.0 % [facility] Hemoglobin (Bld) [Mass/Vol] 14.7 g/dL 13.0 - 18.0 g/dL [facility] Interpretation and review of laboratory results Abnormal [facility] Lymphocytes (Bld) [#/Vol] 2.3 10*3/uL 1.0 - 4.3 10*3/uL [facility] Lymphocytes/100 WBC (Bld) 52.3 % High 20.0 - 40.0 % [facility] MCH (RBC) [Entitic mass] 31.5 pg 26.0 - 34.0 pg [facility] MCHC (RBC) [Mass/Vol] 33.9 % 32.0 - 36.0 % [facility] MCV (RBC) [Entitic vol] 93.0 fL 80.0 - 98.0 fL [facility] Monocytes (Bld) [#/Vol] 0.4 10*3/uL 0.0 - 0.8 10*3/uL [facility] Monocytes/100 WBC (Bld) 10.3 % High 2.0 - 10.0 % [facility] Neutrophils (Bld) [#/Vol] 1.5 10*3/uL Low 1.8 - 7.0 10*3/uL [facility] Neutrophils/100 WBC (Bld) 34.2 % Low 40.0 - 80.0 % [facility] Nucleated RBC/100 WBC (Bld) [Ratio] 0.0 % [facility] Platelet mean volume (Bld) [Entitic vol] 8.2 fL 7.4 - 12.4 fL [facility] Platelets (Bld) [#/Vol] 270 10*3/uL 140 - 440 10*3/uL [facility] RBC (Bld) [#/Vol] 4.65 10*6/uL 4.40 - 5.9 0 10*6/uL [facility] WBC (Bld) [#/Vol] 4.4 10*3/uL 3.6 - 10.7 10*3/uL [facility] Comprehensive metabolic 1998 panelon 05-23-2022 Albumin [Mass/Vol] 4.6 g/dL 3.5 - 5.0 g/dL [facility] ALP [Catalytic activity/Vol] 98 U/L 38 - 126 U/L [facility] ALT [Catalytic activity/Vol] 311 U/L High 0 - 49 U/L [facility] Anion gap [Moles/Vol] 13 mmol/L 3 - 13 mmol/L [facility] AST [Catalytic activity/Vol] 379 U/L High 15 - 46 U/L [facility] Bilirubin [Mass/Vol] 0.6 mg/dL 0.2 - 1 .3 mg/dL [facility] Calcium [Mass/Vol] 8.9 mg/dL 8.4 - 10. 4 mg/dL [facility] Chloride [Moles/Vol] 107 mmol/L 98 - 10 7 mmol/L [facility] CO2 [Moles/Vol] 23 mmol/L 22 - 30 mmol/L [facility] Creatinine [Mass/Vol] 0.72 mg/dL 0.66 - 1.25 mg/dL [facility] GFR/1.73 sq M.predicted MDRD (S/P/Bld) [Vol rate/Area] - PINF [facility] Comment on above: Calculation based on the Chronic Kidney Disease Epidemiology Collaboration (CKD-EPI) equation refit without adjustment for race Glucose [Mass/Vol] 90 mg/dL 70 - 100 mg/dL [facility] Potassium [Moles/Vol] 4.1 mmol/L 3.5 - 5.1 mmol/L [facility] Protein [Mass/Vol] 7.8 g/dL 6.3 - 8.2 g/dL [facility] Sodium [Moles/Vol] 143 mmol/L 135 - 145 mmol/L [facility] Urea nitrogen [Mass/Vol] 8 mg/dL Low 9 - 20 mg/dL [facility] Ethanol (Bld) [Mass/Vol]on 0 05-23-2022 Ethanol [Mass/Vol] 0.141 g/dL High 0.000 - 0.010 g/dL [facility] Laboratory - Drug toxicology on 05-23-2022 Acetaminophen [Mass/Vol] ug/mL Low 10.0 - 30.0 ug/mL [facility] No Panel Informationon 05-23 Interpretation and review of laboratory results Abnormal [facility] Basic metabolic 1998 panelon 05-02-2022 Anion gap [Moles/Vol] 9 mmol/L 3 - 13 mmol/L [facility] Calcium [Mass/Vol] 9.4 mg/dL 8.4 - 10. 4 mg/dL [facility] Chloride [Moles/Vol] 107 mmol/L 98 - 10 7 mmol/L [facility] CO2 [Moles/Vol] 24 mmol/L 22 - 30 mmol/L [facility] Creatinine [Mass/Vol] 0.75 mg/dL 0.66 - 1.25 mg/dL [facility] GFR/1.73 sq M.predicted MDRD (S/P/Bld) [Vol rate/Area] - PINF [facility] Comment on above: Calculation based on the Chronic Kidney Disease Epidemiology Collaboration (CKD-EPI) equation refit without adjustment for race Glucose [Mass/Vol] 107 mg/dL High 70 - 100 mg/dL [facility] Interpretation and review of laboratory results Abnormal [facility] Potassium [Moles/Vol] 4.0 mmol/L 3.5 - 5.1 mmol/L [facility] Sodium [Moles/Vol] 140 mmol/L 135 - 145 mmol/L [facility] Urea nitrogen [Mass/Vol] 5 mg/dL Low 9 - 20 mg/dL [facility] CBC panel Auto (Bld)on 05-02 Erythrocyte distribution width (RBC) [Ratio] 13.2 % 11.5 - 14.5 % [employer] Hematocrit (Bld) [Volume fraction] 44.0 % 40.0 - 52.0 % [employer] Hemoglobin (Bld) [Mass/Vol] 14.7 g/dL 13.0 - 18.0 g/dL [facility] [employer] Interpretation and review of laboratory results Normal [facility] [employer] MCH (RBC) [Entitic mass] 31.0 pg 26.0 - 34.0 pg [facility] [employer] MCHC (RBC) [Mass/Vol] 33.4 % 32.0 - 36.0 % [employer] MCV (RBC) [Entitic vol] 92.9 fL 80.0 - 98.0 fL [facility] [employer] Platelet mean volume (Bld) [Entitic vol] 8.2 fL 7.4 - 12.4 fL [facility] [employer] Platelets (Bld) [#/Vol] 194 10*3/uL 140 - 440 10*3/uL [facility] [employer] RBC (Bld) [#/Vol] 4.73 10*6/uL 4.40 - 5.9 0 10*6/uL [facility] [employer] WBC (Bld) [#/Vol] 4.6 10*3/uL 3.6 - 10.7 10*3/uL [facility] [employer] ECG 12 leadOrdered By: Richard Ortiz on 05-02-2022 Heart rate 85 /min bpm [employer] Work Phone: P [place] 61 degrees [employer] Work Phone: [place] Interval 168 ms [employer] Work Phone: QRS [place] 15 degrees [employer] Work Phone: QRSD Interval 90 ms [employer] Work Phone: QT Interval 392 ms [employer] Work Phone: [phone] QTC Interval 467 ms [employer] Work Phone: T Wave [place] 38 degrees [employer] Work Phone: [phone] Web[employer] Work Phone: ECG 12 leadon 05-02-2022 SINUS [...] On 05-02-2022 19:41:54 EDT by Shaan Ortiz [facility] TSHon 05-02-2022 TSH Qn 1.706 m[IU]/L [facility] TSH Qnon 05-02-2022 Interpretation and review of laboratory results Normal [facility] Troponin Ion 05-02-2022 Troponin I.cardiac [Mass/Vol] ng/mL 0.000 - 0.034 ng/mL [facility] [employer] Troponin I.cardiac [Mass/Vol ]on 05-02-2022 Interpretation and review of laboratory results Normal [facility] Patients with high levels of Biotin oral intake (ie >5 mg/day) may have falsely decreased Troponin levels. [facility] [employer] XR Chest 2 Viewson 3 1. No acute finding. Report Dictated on Electronically Signed By: Steve Medellin Electronically Signed Date/Time: 05/02/2022 6:58 PM EDT [facility] 1985 [id number] Exam Date/Time: 05/02/2022 18:56 Procedure: XR CHEST 2 VIEWS Ordering Provider: DURAN DANIEL Reason For Exam: CHEST PAIN CHEST X-RAY TWO VIEWS CLINICAL INDICATION: CHEST PAIN TECHNIQUE: Frontal and lateral views of the chest. COMPARISON: None FINDINGS: Lungs are show no significant consolidation. No pleural effusion or pneumothorax. No vascular congestion. Heart size normal. [facility] Steve Medellin MD - 05/02/2022 [facility] Name[facility] 1985 [id number] Exam Date/Time: 05/02/2022 18:56 Procedure: XR CHEST [...] Electronically Signed Date/Time: 05/02/2022 6:58 PM EDT [facility] Radiology Study observation (narrative) [facility] XR Chest 2 ViewsOrdered By: Steve Medellin on 05-02-2022 [facility] [employer] Work Phone: Comprehensive metabolic 1998 panelon 03-18-2022 Albumin [Mass/Vol] 4.0 g/dL 3.5 - 5.0 g/dL [facility] ALP [Catalytic activity/Vol] 74 U/L 38 - 126 U/L [facility] ALT [Catalytic activity/Vol] 135 U/L High 0 - 49 U/L [facility] Anion gap [Moles/Vol] 4 mmol/L 3 - 13 mmol/L [facility] AST [Catalytic activity/Vol] 195 U/L High 15 - 46 U/L [facility] Bilirubin [Mass/Vol] 0.9 mg/dL 0.2 - 1 .3 mg/dL [facility] Calcium [Mass/Vol] 9.1 mg/dL 8.4 - 10. 4 mg/dL [facility] Chloride [Moles/Vol] 102 mmol/L 98 - 10 7 mmol/L [facility] CO2 [Moles/Vol] 30 mmol/L 22 - 30 mmol/L [facility] Creatinine [Mass/Vol] 0.73 mg/dL 0.66 - 1.25 mg/dL [facility] GFR/1.73 sq M.predicted MDRD (S/P/Bld) [Vol rate/Area] - PINF [facility] Comment on above: Calculation based on the Chronic Kidney Disease Epidemiology Collaboration (CKD-EPI) equation refit without adjustment for race Glucose [Mass/Vol] 102 mg/dL High 70 - 100 mg/dL [facility] Interpretation and review of laboratory results Abnormal [facility] Potassium [Moles/Vol] 4.0 mmol/L 3.5 - 5.1 mmol/L [facility] Protein [Mass/Vol] 6.9 g/dL 6.3 - 8.2 g/dL [facility] Sodium [Moles/Vol] 136 mmol/L 135 - 145 mmol/L [facility] Urea nitrogen [Mass/Vol] 4 mg/dL Low 9 - 20 mg/dL [facility] CBC W Auto Differential pane l (Bld)Ordered By: Maryana Hale on 03-15-2022 Basophils (Bld) [#/Vol] 0.0 10*3/uL 0.0 - 0.2 10*3/uL [facility] Basophils/100 WBC (Bld) 0.6 % 0.0 - 2.0 % [facility] Eosinophils (Bld) [#/Vol] 0.0 10*3/uL 0.0 - 0.5 10*3/uL [facility] Eosinophils/100 WBC (Bld) 0.6 % Low 1.0 - 6.0 % [facility] Erythrocyte distribution width (RBC) [Ratio] 13.8 % 11.5 - 14.5 % [facility] Hematocrit (Bld) [Volume fraction] 41.7 % 40.0 - 52.0 % [facility] Hemoglobin (Bld) [Mass/Vol] 14.0 g/dL 13.0 - 18.0 g/dL [facility] Interpretation and review of laboratory results Abnormal [facility] Lymphocytes (Bld) [#/Vol] 3.6 10*3/uL 1.0 - 4.3 10*3/uL [facility] Lymphocytes/100 WBC (Bld) 59.5 % High 20.0 - 40.0 % [facility] MCH (RBC) [Entitic mass] 31.4 pg 26.0 - 34.0 pg [facility] MCHC (RBC) [Mass/Vol] 33.6 % 32.0 - 36.0 % [facility] MCV (RBC) [Entitic vol] 93.7 fL 80.0 - 98.0 fL [facility] Monocytes (Bld) [#/Vol] 0.4 10*3/uL 0.0 - 0.8 10*3/uL [facility] Monocytes/100 WBC (Bld) 6.7 % 2.0 - 10.0 % [facility] Neutrophils (Bld) [#/Vol] 1.9 10*3/uL 1.8 - 7.0 10*3/uL [facility] Neutrophils/100 WBC (Bld) 32.6 % Low 40.0 - 80.0 % [facility] Nucleated RBC/100 WBC (Bld) [Ratio] 0.1 % [facility] Platelet mean volume (Bld) [Entitic vol] 8.4 fL 7.4 - 12.4 fL [facility] Platelets (Bld) [#/Vol] 189 10*3/uL 140 - 440 10*3/uL [facility] RBC (Bld) [#/Vol] 4.45 10*6/uL 4.40 - 5.9 0 10*6/uL [facility] WBC (Bld) [#/Vol] 6.0 10*3/uL 3.6 - 10.7 10*3/uL [facility] Comprehensive metabolic 1998 panelon 03-15-2022 Albumin [Mass/Vol] 4.9 g/dL 3.5 - 5.0 g/dL [facility] ALP [Catalytic activity/Vol] 117 U/L 38 - 126 U/L [facility] ALT [Catalytic activity/Vol] 167 U/L High 0 - 49 U/L [facility] Anion gap [Moles/Vol] 11 mmol/L 3 - 13 mmol/L [facility] AST [Catalytic activity/Vol] 234 U/L High 15 - 46 U/L [facility] Bilirubin [Mass/Vol] 0.5 mg/dL 0.2 - 1 .3 mg/dL [facility] Calcium [Mass/Vol] 8.9 mg/dL 8.4 - 10. 4 mg/dL [facility] Chloride [Moles/Vol] 105 mmol/L 98 - 10 7 mmol/L [facility] CO2 [Moles/Vol] 24 mmol/L 22 - 30 mmol/L [facility] Creatinine [Mass/Vol] 0.74 mg/dL 0.66 - 1.25 mg/dL [facility] GFR/1.73 sq M.predicted MDRD (S/P/Bld) [Vol rate/Area] - PINF [facility] Comment on above: Calculation based on the Chronic Kidney Disease Epidemiology Collaboration (CKD-EPI) equation refit without adjustment for race Glucose [Mass/Vol] 112 mg/dL High 70 - 100 mg/dL [facility] Potassium [Moles/Vol] 4.1 mmol/L 3.5 - 5.1 mmol/L [facility] Protein [Mass/Vol] 8.3 g/dL High 6.3 - 8.2 g/dL [facility] Sodium [Moles/Vol] 140 mmol/L 135 - 145 mmol/L [facility] Urea nitrogen [Mass/Vol] 5 mg/dL Low 9 - 20 mg/dL [facility] Ethanol (Bld) [Mass/Vol]on 0 03-15-2022 Ethanol [Mass/Vol] 0.289 g/dL High 0.000 - 0.010 g/dL [facility] Laboratory - Chemistry and C hemistry - challengeon 03-15-2022 Lipase [Catalytic activity/Vol] 324 U/L High 23 - 300 U/L [facility] Laboratory - Drug toxicology Ordered By: Amber Junior on 03-15-2022 Amphetamines Screen method >1000 ng/mL Ql (U) Negative [facility] Barbiturates Screen method >200 ng/mL Ql (U) Negative [facility] Benzodiazepines Ql (U) Negative [facility] Methadone Screen Ql (U) Negative [facility] Opiates Screen Ql (U) Negative [facility] oxyCODONE Ql (U) Negative [facility] Phencyclidine Ql (U) Negative [facility] Laboratory - Microbiology an d Antimicrobial susceptibilityOrdered By: Marilynn Flaherty on 03-15-2022 SARS-CoV-2 (COVID-19) Ag IA.rapid Ql (Resp) Negative Negative [facility] Comment on above: A negative result do es not rule out the possibility of SARS-CoV-2 infection. NAAT-based methods should be considered for symptomatic patients presenting greater than seven days after onset of symptoms. Method: Lateral flow immunoassay. Fact sheets for healthcare providers and patients can be found at the following sites: https://www.fda.gov/media/568241/download https://www.fda.gov/media/137927/download No Panel Informationon 03-15 P [place] 41 degrees [facility] [place] Interval 176 ms [facility] QRS [place] 5 degrees [facility] QRSD Interval 93 ms [facility] QT Interval 427 ms [facility] QTC Interval 428 ms [facility] T Wave [place] 2 degrees [facility] Sinus rhythm Probable left ventricular hypertrophy Borderline T abnormalities, inferior leads No significant changes compared to previous Electronically Signed On 03-15-2022 22:26:15 EST by Josseline Weber Josseline Davenport MD - 03/15/2022 IMPRESSION: Sinus rhythm Probable left ventricular hypertrophy Borderline T abnormalities, inferior leads No significant changes compared to previous Electronically Signed On 03-15-2022 22:26:15 EST by Josseline Weber [facility] Interpretation and review of laboratory results Abnormal [facility] No Panel InformationOrdered By: Amber Junior on 03-15-2022 COCAINE METAB. SCREEN Positive [facility] The expected value f or all [...] is needed, request confirmation under separate order. [facility] SARS-CoV-2 (COVID-19) Ag IA. rapid Ql (Resp)Ordered By: Marilynn Flaherty on 03-15-2022 Interpretation and review of laboratory results Normal [facility] Vital signson 03-15-2022 Heart rate 60 /min bpm [facility] ED Provider Noteon ED Provider Note JENNI [...] Hypertension ? Pancreatitis ? SVT (supraventricular tachycardia) ([facility]) ? Tourette syndrome SURGICALHISTORY Past Surgical History: [...] Gatherings with Friends and Family: ? Attends [employer] Services: ? Active Member of Clubs or Organizations: ? Attends Club or Organization Meetings: ? Marital Status: Intimate Partner Violence: ? Fear of Current or Ex-Partner: ? Emotionally Abused: ? Physically Abused: ? Sexually Abused: SCREENINGS @FLOW([id number])@ PHYSICAL EXAM (5+ for level 4, 8+ [...] heart sounds. (more content not included)... Normal [facility] XR CHEST 2V FRONTAL/LATon XR CHEST [...] acute abnormality IMPRESSION: No acute radiographic abnormality. Wireless Operator: MORA Transcribe Date/Time: Jan 28 2020 8:55A Dictated by : SHIMA RAMOS MD This examination was interpreted and the report reviewed and electronically signed by: SHIMA RAMOS MD on Jan 28 2020 8:56AM EST Normal [facility] Chlamydia and GC PCR Panelon 07-29-2019 Chlamydia [...] as suspected child abuse or molestation. Normal [facility] Comment on above: Order Comment: Speci men Source Comment:Urine voided Performed By: #### C TNGP #### [address] [id number] Complete Urinalysison 2019 Appearance (U) Clear Normal Clear [facility] Comment on above: Result Comment: . Performed By: #### C UA2 #### [facility] [address] [place] [address] Bilirubin,Urine Negative Normal Negative [facility] Comment on above: Result Comment: . Performed By: #### C UA2 #### [facility] [address] [place] [address] Color (U) Yellow Normal Lt. Yellow [facility] Comment on above: Result Comment: . Performed By: #### C UA2 #### [facility] [address] [place] [address] Glucose Ql (U) Normal Normal Normal (<70) [facility] Comment on above: Result Comment: . Performed By: #### C UA2 #### [facility] [address] [place] [address] Ketone,Urine Trace Abnormal Negative [facility] Comment on above: Result Comment: . Performed By: #### C UA2 #### [facility] [address] [place] [address] Leukocytes,Urine Negative Normal Negative [facility] Comment on above: Result Comment: . Performed By: #### C UA2 #### [facility] [address] [place] [address] Mucous Threads Moderate Abnormal Negative [facility] Comment on above: Result Comment: . Performed By: #### C UA2 #### [facility] [address] [place] [address] Nitrites,Urine Negative Normal Negative [facility] Comment on above: Result Comment: . Performed By: #### C UA2 #### [facility] [address] [place] [address] Occult Blood,Urine Negative Normal Negative [facility] Comment on above: Result Comment: . Performed By: #### C UA2 #### [facility] [address] [place] [address] pH,Urine 6.0 Normal 5.0-8.0 [facility] Comment on above: Result Comment: . Performed By: #### C UA2 #### [facility] [address] [place] [address] Protein (U) [Mass/Vol] 10 mg/dL Abnormal Negative [facility] Comment on above: Result Comment: . Performed By: #### C UA2 #### [facility] [address] [place] [address] RBC, Urine 3 - 5 Abnormal 0-2 [facility] Comment on above: Result Comment: . Performed By: #### C UA2 #### [facility] [address] [place] [address] Specific [place]ell,Urine 1.030 Normal 1.005 - 1.030 [facility] Comment on above: Result Comment: . Performed By: #### C UA2 #### [facility] [address] [place] [address] Urobilinogen,Urine 3 mg/dL Abnormal Normal (0-1) [facility] Comment on above: Result Comment: . Performed By: #### C UA2 #### [facility] [address] [place] [address] WBC, Urine 3 - 5 Normal 0-5 [facility] Comment on above: Result Comment: . Performed By: #### C UA2 #### [facility] [address] [place] [address] Urinalysison 07-28-2019 Appearance (U) Clear Clear [place] Comment on above: . Bilirubin Urine Negative Negative mg/dL [place] Comment on above: . Color (U) Yellow Lt. Yellow NA [place] Comment on above: . Glucose, Ur Normal Normal (<70) mg/dL [place] Comment on above: . Interpretation and review of laboratory results Abnormal [place] Ketones Ql (U) Trace Abnormal Negative mg/dL [place] Comment on above: . LEUKOCYTES, UA Negative Negative Te[place]ilo/uL [place] Comment on above: . Mucous Threads Moderate Abnormal Negative /[LPF] [place] Comment on above: . Nitrite, Urine Negative Negative NA [place] Comment on above: . Occult Blood,Urine Negative Negative mg/dL [place] Comment on above: . pH (U) 6.0 [pH] [place] Comment on above: . Protein (U) [Mass/Vol] 10 mg/dL Abnormal Negative [place] Comment on above: . RBC (U) [#/Vol] 3-5 Abnormal 0 - 2 /[HPF] [place] Comment on above: . Specific [place], Urine 1.030 [place] Comment on above: . Urobilinogen, Urine 3 mg/dL Abnormal Normal (0-1) [place], [place] Comment on above: . WBC, UA 3-5 0 - 5 /[HPF] [place] Comment on above: . Test Performed by [facility], [address] [place], [place], [place] [address] [place] Lipaseon 06-08-2018 Lipase [Catalytic activity/Vol] 65 U/L High 13-60 [facility] CBC With Platelet No Differe ntialon 06-07-2018 Erythrocyte distribution width (RBC) [Ratio] 13.0 fL Normal 11.5-15.0 [facility] Hematocrit (Bld) [Volume fraction] 39.4 % Normal 37.0-54.0 [facility] Hemoglobin (Bld) [Mass/Vol] 12.5 g/dL Normal 12.5-16.5 [facility] MCH (RBC) [Entitic mass] 29.6 pg Normal 26.0-35.0 [facility] MCHC (RBC) [Mass/Vol] 31.7 % Low 32.0-34.[address] [facility] MCV (RBC) [Entitic vol] 93.4 fL Normal 80.0-99.9 [facility] Platelet mean volume (Bld) [Entitic vol] 9.8 fL Normal 7.0-12.0 [facility] Platelets (Bld) [#/Vol] 207 E9/L Normal 130-450 [facility] RBC (Bld) [#/Vol] 4.22 E12/L Normal 3.80-5.80 [facility] WBC (Bld) [#/Vol] 5.8 E9/L Normal 4.5-11.5 [facility] Comprehensive Metabolic Pane l reflex Mgon 06-07-2018 Albumin [Mass/Vol] 3.8 g/dL Normal 3.5-5.2 [facility] ALP [Catalytic activity/Vol] 65 U/L Normal 40-129 [facility] ALT [Catalytic activity/Vol] 63 U/L High 0-40 [facility] Anion gap [Moles/Vol] 11 mmol/L Normal 7-16 [facility] AST [Catalytic activity/Vol] 46 U/L High 0-39 [facility] Bilirubin [Mass/Vol] 0.5 mg/dL Normal 0.0-1.2 [facility] Calcium [Mass/Vol] 8.8 mg/dL Normal 8.6-10.2 [facility] Chloride [Moles/Vol] 103 mmol/L Normal 98-107 [facility] CO2 [Moles/Vol] 26 mmol/L Normal 22-29 [facility] Creatinine [Mass/Vol] 0.9 mg/dL Normal 0.7-1.2 [facility] GFR/1.73 sq M predicted among blacks MDRD (S/P/Bld) [Vol rate/Area] mL/min/{1.73_m2} Normal [facility] GFR/1.73 sq M predicted among non-blacks MDRD (S/P/Bld) [Vol rate/Area] mL/min/{1.73_m2} Normal >=60 [facility] Comment on above: Result Comment: Java Programmer Analyst russ Kidney Disease: less than 60 ml/min/1.73 sq.m. Kidney Failure: less than 15 ml/min/1.73 sq.m. Results valid for patients 18 years and older. Glucose [Mass/Vol] 100 mg/dL High 74-99 [facility] Potassium reflex Mg 4.3 mmol/L Normal 3.5-5.0 [facility] Protein [Mass/Vol] 6.3 g/dL Low 6.4-8.3 [facility] Sodium [Moles/Vol] 140 mmol/L Normal 132-146 [facility] Urea nitrogen [Mass/Vol] 10 mg/dL Normal 6-20 [facility] Lipaseon 06-07-2018 Lipase [Catalytic activity/Vol] 158 U/L High 13-60 [facility] Lipid Panelon 04-29-2019 Cholesterol [Mass/Vol] 214 mg/dL High 0-199 [facility] Cholesterol in HDL [Mass/Vol] 37 mg/dL Normal >40 [facility] Cholesterol in LDL [Mass/Vol] 128 mg/dL High 0-99 [facility] Triglyceride [Mass/Vol] 246 mg/dL High 0-149 [facility] VLDL Cholesterol (Calculated) 49 mg/dL Normal [facility] CBC With Platelet and Differ entialon 06-06-2018 Abs Imm Granulocytes 0.03 E9/L Normal [facility] Basophils (Bld) [#/Vol] 0.05 E9/L Normal 0.00-0.20 [facility] Basophils/100 WBC (Bld) 0.7 % Normal 0.0-2.0 [facility] Eosinophils (Bld) [#/Vol] 0.18 E9/L Normal 0.05-0.50 [facility] Eosinophils/100 WBC (Bld) 2.3 % Normal 0.0-6.0 [facility] Erythrocyte distribution width (RBC) [Ratio] 13.1 fL Normal 11.5-15.0 [facility] Hematocrit (Bld) [Volume fraction] 43.6 % Normal 37.0-54.0 [facility] Hemoglobin (Bld) [Mass/Vol] 14.2 g/dL Normal 12.5-16.5 [facility] Imm Granulocytes 0.4 % Normal 0.0-5.0 [facility] Lymphocytes (Bld) [#/Vol] 2.17 E9/L Normal 1.50-4.00 [facility] Lymphocytes/100 WBC (Bld) 28.3 % Normal 20.0-42.0 [facility] MCH (RBC) [Entitic mass] 30.1 pg Normal 26.0-35.0 [facility] MCHC (RBC) [Mass/Vol] 32.6 % Normal 32.0-34.5 [facility] MCV (RBC) [Entitic vol] 92.4 fL Normal 80.0-99.9 [facility] Monocytes (Bld) [#/Vol] 0.49 E9/L Normal 0.10-0.95 [facility] Monocytes/100 WBC (Bld) 6.4 % Normal 2.0-12.0 [facility] Neutrophils (Bld) [#/Vol] 4.75 E9/L Normal 1.80-7.30 [facility] Neutrophils/100 WBC (Bld) 61.9 % Normal 43.0-80.0 [facility] Platelet mean volume (Bld) [Entitic vol] 10.4 fL Normal 7.0-12.0 [facility] Platelets (Bld) [#/Vol] 245 E9/L Normal 130-450 [facility] RBC (Bld) [#/Vol] 4.72 E12/L Normal 3.80-5.80 [facility] WBC (Bld) [#/Vol] 7.7 E9/L Normal 4.5-11.[address] [facility] [address] ABDOMEN PELVIS W IV CONTR [...] Nevaeh Edgar DO 06/06/18 Final result Normal [facility] Comprehensive Metabolic Pane rylan 06-06-2018 Albumin [Mass/Vol] 4.5 g/dL Normal 3.5-5.2 [facility] ALP [Catalytic activity/Vol] 79 U/L Normal 40-129 [facility] ALT [Catalytic activity/Vol] 81 U/L High 0-40 [facility] Anion gap [Moles/Vol] 10 mmol/L Normal 7-16 [facility] AST [Catalytic activity/Vol] 49 U/L High 0-39 [facility] Bilirubin [Mass/Vol] 0.4 mg/dL Normal 0.0-1.2 [facility] Calcium [Mass/Vol] 9.6 mg/dL Normal 8.6-10.2 [facility] Chloride [Moles/Vol] 100 mmol/L Normal 98-107 [facility] CO2 [Moles/Vol] 28 mmol/L Normal 22-29 [facility] Creatinine [Mass/Vol] 0.8 mg/dL Normal 0.7-1.2 [facility] GFR/1.73 sq M predicted among blacks MDRD (S/P/Bld) [Vol rate/Area] mL/min/{1.73_m2} Normal [facility] GFR/1.73 sq M predicted among non-blacks MDRD (S/P/Bld) [Vol rate/Area] mL/min/{1.73_m2} Normal >=60 [facility] Comment on above: Result Comment: Java Programmer Analyst russ Kidney Disease: less than 60 ml/min/1.73 sq.m. Kidney Failure: less than 15 ml/min/1.73 sq.m. Results valid for patients 18 years and older. Glucose [Mass/Vol] 117 mg/dL High 74-99 [facility] Potassium [Moles/Vol] 4.3 mmol/L Normal 3.5-5.0 [facility] Protein [Mass/Vol] 7.2 g/dL Normal 6.4-8.3 [facility] Sodium [Moles/Vol] 138 mmol/L Normal 132-146 [facility] Urea nitrogen [Mass/Vol] 9 mg/dL Normal 6-20 [facility] Lactate Dehydrogenaseon 05-11 LDH [Catalytic activity/Vol] 193 U/L Normal 135-225 [facility] Comment on above: Order Comment: EPIC [id number] Lactic Acidon 06-06-2018 Lactate [Moles/Vol] 1.4 mmol/L Normal 0.5-2.2 [facility] Lipaseon 06-06-2018 Lipase [Catalytic activity/Vol] 450 U/L High 13-60 [facility] Prothrombin Timeon 9 INR Coag (PPP) [Relative time] 1.0 {INR} Normal [facility] PT Coag (PPP) [Time] 11.3 s Normal 9.3-12.4 [facility] CBC With Platelet and Differ entialon 03-30-2018 Abs Imm Granulocytes 0.02 E9/L Normal [facility] Basophils (Bld) [#/Vol] 0.03 E9/L Normal 0.00-0.20 [facility] Basophils/100 WBC (Bld) 0.6 % Normal 0.0-2.0 [facility] Eosinophils (Bld) [#/Vol] 0.08 E9/L Normal 0.05-0.50 [facility] Eosinophils/100 WBC (Bld) 1.6 % Normal 0.0-6.0 [facility] Erythrocyte distribution width (RBC) [Ratio] 12.2 fL Normal 11.5-15.0 [facility] Hematocrit (Bld) [Volume fraction] 40.3 % Normal 37.0-54.0 [facility] Hemoglobin (Bld) [Mass/Vol] 12.8 g/dL Normal 12.5-16.5 [facility] Imm Granulocytes 0.4 % Normal 0.0-5.0 [facility] Lymphocytes (Bld) [#/Vol] 1.94 E9/L Normal 1.50-4.00 [facility] Lymphocytes/100 WBC (Bld) 39.2 % Normal 20.0-42.0 [facility] MCH (RBC) [Entitic mass] 29.8 pg Normal 26.0-35.0 [facility] MCHC (RBC) [Mass/Vol] 31.8 % Low 32.0-34.5 [facility] MCV (RBC) [Entitic vol] 93.9 fL Normal 80.0-99.9 [facility] Monocytes (Bld) [#/Vol] 0.37 E9/L Normal 0.10-0.95 [facility] Monocytes/100 WBC (Bld) 7.5 % Normal 2.0-12.0 [facility] Neutrophils (Bld) [#/Vol] 2.51 E9/L Normal 1.80-7.30 [facility] Neutrophils/100 WBC (Bld) 50.7 % Normal 43.0-80.0 [facility] Platelet mean volume (Bld) [Entitic vol] 10.4 fL Normal 7.0-12.0 [facility] Platelets (Bld) [#/Vol] 208 E9/L Normal 130-450 [facility] RBC (Bld) [#/Vol] 4.29 E12/L Normal 3.80-5.80 [facility] WBC (Bld) [#/Vol] 5.0 E9/L Normal 4.5-11.5 [facility] Comprehensive Metabolic Pane rylan 03-30-2018 Albumin [Mass/Vol] 3.9 g/dL Normal 3.5-5.2 [facility] ALP [Catalytic activity/Vol] 65 U/L Normal 40-129 [facility] ALT [Catalytic activity/Vol] 66 U/L High 0-40 [facility] Anion gap [Moles/Vol] 7 mmol/L Normal 7-16 [facility] AST [Catalytic activity/Vol] 49 U/L High 0-39 [facility] Bilirubin [Mass/Vol] 0.4 mg/dL Normal 0.0-1.2 [facility] Calcium [Mass/Vol] 9.0 mg/dL Normal 8.6-10.2 [facility] Chloride [Moles/Vol] 106 mmol/L Normal 98-107 [facility] CO2 [Moles/Vol] 26 mmol/L Normal 22-29 [facility] Creatinine [Mass/Vol] 0.9 mg/dL Normal 0.7-1.2 [facility] GFR/1.73 sq M predicted among blacks MDRD (S/P/Bld) [Vol rate/Area] mL/min/{1.73_m2} Normal [facility] GFR/1.73 sq M predicted among non-blacks MDRD (S/P/Bld) [Vol rate/Area] mL/min/{1.73_m2} Normal >=60 [facility] Comment on above: Result Comment: Java Programmer Analyst russ Kidney Disease: less than 60 ml/min/1.73 sq.m. Kidney Failure: less than 15 ml/min/1.73 sq.m. Results valid for patients 18 years and older. Glucose [Mass/Vol] 92 mg/dL Normal 74-99 [facility] Potassium [Moles/Vol] 4.4 mmol/L Normal 3.5-5.0 [facility] Protein [Mass/Vol] 6.3 g/dL Low 6.4-8.3 [facility] Sodium [Moles/Vol] 139 mmol/L Normal 132-146 [facility] Urea nitrogen [Mass/Vol] 6 mg/dL Normal 6-20 [facility] CBC With Platelet and Differ entialon 03-29-2018 Abs Imm Granulocytes 0.03 E9/L Normal [facility] Basophils (Bld) [#/Vol] 0.03 E9/L Normal 0.00-0.20 [facility] Basophils/100 WBC (Bld) 0.3 % Normal 0.0-2.0 [facility] Eosinophils (Bld) [#/Vol] 0.08 E9/L Normal 0.05-0.50 [facility] Eosinophils/100 WBC (Bld) 0.9 % Normal 0.0-6.0 [facility] Erythrocyte distribution width (RBC) [Ratio] 12.2 fL Normal 11.5-15.0 [facility] Hematocrit (Bld) [Volume fraction] 43.9 % Normal 37.0-54.0 [facility] Hemoglobin (Bld) [Mass/Vol] 14.7 g/dL Normal 12.5-16.5 [facility] Imm Granulocytes 0.3 % Normal 0.0-5.0 [facility] Lymphocytes (Bld) [#/Vol] 2.67 E9/L Normal 1.50-4.00 [facility] Lymphocytes/100 WBC (Bld) 30.2 % Normal 20.0-42.0 [facility] MCH (RBC) [Entitic mass] 30.8 pg Normal 26.0-35.0 [facility] MCHC (RBC) [Mass/Vol] 33.5 % Normal 32.0-34.5 [facility] MCV (RBC) [Entitic vol] 91.8 fL Normal 80.0-99.9 [facility] Monocytes (Bld) [#/Vol] 0.57 E9/L Normal 0.10-0.95 [facility] Monocytes/100 WBC (Bld) 6.4 % Normal 2.0-12.0 [facility] Neutrophils (Bld) [#/Vol] 5.46 E9/L Normal 1.80-7.30 [facility] Neutrophils/100 WBC (Bld) 61.9 % Normal 43.0-80.0 [facility] Platelet mean volume (Bld) [Entitic vol] 10.8 fL Normal 7.0-12.0 [facility] Platelets (Bld) [#/Vol] 263 E9/L Normal 130-450 [facility] RBC (Bld) [#/Vol] 4.78 E12/L Normal 3.80-5.80 [facility] WBC (Bld) [#/Vol] 8.8 E9/L Normal 4.5-11.5 [facility] [address] ABDOMEN PELVIS W IV CONTR [...] Constance Baptiste MD 03/29/18 Final result Normal [facility] Comprehensive Metabolic Pane rylan 03-29-2018 Albumin [Mass/Vol] 5.0 g/dL Normal 3.5-5.2 [facility] ALP [Catalytic activity/Vol] 78 U/L Normal 40-129 [facility] ALT [Catalytic activity/Vol] 79 U/L High 0-40 [facility] Anion gap [Moles/Vol] 12 mmol/L Normal 7-16 [facility] AST [Catalytic activity/Vol] 64 U/L High 0-39 [facility] Bilirubin [Mass/Vol] 0.5 mg/dL Normal 0.0-1.2 [facility] Calcium [Mass/Vol] 9.6 mg/dL Normal 8.6-10.2 [facility] Chloride [Moles/Vol] 101 mmol/L Normal 98-107 [facility] CO2 [Moles/Vol] 25 mmol/L Normal 22-29 [facility] Creatinine [Mass/Vol] 0.9 mg/dL Normal 0.7-1.2 [facility] GFR/1.73 sq M predicted among blacks MDRD (S/P/Bld) [Vol rate/Area] mL/min/{1.73_m2} Normal [facility] GFR/1.73 sq M predicted among non-blacks MDRD (S/P/Bld) [Vol rate/Area] mL/min/{1.73_m2} Normal >=60 [facility] Comment on above: Result Comment: Java Programmer Analyst russ Kidney Disease: less than 60 ml/min/1.73 sq.m. Kidney Failure: less than 15 ml/min/1.73 sq.m. Results valid for patients 18 years and older. Glucose [Mass/Vol] 96 mg/dL Normal 74-99 [facility] Potassium [Moles/Vol] 4.2 mmol/L Normal 3.5-5.0 [facility] Protein [Mass/Vol] 7.6 g/dL Normal 6.4-8.3 [facility] Sodium [Moles/Vol] 138 mmol/L Normal 132-146 [facility] Urea nitrogen [Mass/Vol] 9 mg/dL Normal 6-20 [facility] Lactic Acidon 03-29-2018 Lactate [Moles/Vol] 0.7 mmol/L Normal 0.5-2.2 [facility] Lipaseon 03-29-2018 Lipase [Catalytic activity/Vol] 88 U/L High 13-60 [facility] Lipid Panelon 03-29-2018 Cholesterol [Mass/Vol] 255 mg/dL High 0-199 [facility] Cholesterol in HDL [Mass/Vol] 53 mg/dL Normal >40 [facility] Cholesterol in LDL [Mass/Vol] 164 mg/dL High 0-99 [facility] Triglyceride [Mass/Vol] 188 mg/dL High 0-149 [facility] VLDL Cholesterol (Calculated) 38 mg/dL Normal [facility] Magnesiumon 03-29-2018 Magnesium [Mass/Vol] 2.3 mg/dL Normal 1.6-2.6 [facility] POCT Venouson 03-29-2018 Anion gap [Moles/Vol] 11 mmol/L Normal 7-16 [facility] Creatinine [Mass/Vol] 0.9 mg/dL Normal 0.7-1.2 [facility] GFR/1.73 sq M predicted among blacks MDRD (S/P/Bld) [Vol rate/Area] mL/min/{1.73_m2} Normal [facility] GFR/1.73 sq M.predicted MDRD (S/P/Bld) [Vol rate/Area] mL/min/{1.73_m2} Normal >=60 [facility] Comment on above: Result Comment: Java Programmer Analyst russ Kidney Disease: less than 60 ml/min/1.73 sq.m. Kidney Failure: less than 15 ml/min/1.73 sq.m. Results valid for patients 18 years and older. Glucose [Mass/Vol] 97 mg/dL Normal 74-99 [facility] POC Cl 104 mmol/L Normal 100-108 [facility] POC CO2 23 mmol/L Normal 22-29 [facility] POC K 4.0 mmol/L Normal 3.5-5.0 [facility] POC Na 138 mmol/L Normal 132-146 [facility] Comment on above: Result Comment: ALL POC CRITICAL VALUES MUST BE COMMUNICATED BY TESTING PERSONNEL PER DEPARTMENT POLICY. Urea nitrogen [Mass/Vol] 9 mg/dL Normal 8-23 [facility] Phosphoruson 03-29-2018 Phosphate [Mass/Vol] 4.1 mg/dL Normal 2.5-4.5 [facility] US ABDOMEN LIMITEDon 019 US ABDOMEN LIMITED [...] Nevaeh Edgar DO 03/29/18 Final result Normal [facility] CBC With Platelet and Differ entialon 03-28-2018 Abs Imm Granulocytes 0.03 E9/L Normal [facility] Basophils (Bld) [#/Vol] 0.03 E9/L Normal 0.00-0.20 [facility] Basophils/100 WBC (Bld) 0.4 % Normal 0.0-2.0 [facility] Eosinophils (Bld) [#/Vol] 0.08 E9/L Normal 0.05-0.50 [facility] Eosinophils/100 WBC (Bld) 0.9 % Normal 0.0-6.0 [facility] Erythrocyte distribution width (RBC) [Ratio] 12.3 fL Normal 11.5-15.0 [facility] Hematocrit (Bld) [Volume fraction] 46.5 % Normal 37.0-54.0 [facility] Hemoglobin (Bld) [Mass/Vol] 15.2 g/dL Normal 12.5-16.5 [facility] Imm Granulocytes 0.4 % Normal 0.0-5.0 [facility] Lymphocytes (Bld) [#/Vol] 2.85 E9/L Normal 1.50-4.00 [facility] Lymphocytes/100 WBC (Bld) 33.3 % Normal 20.0-42.0 [facility] MCH (RBC) [Entitic mass] 29.7 pg Normal 26.0-35.0 [facility] MCHC (RBC) [Mass/Vol] 32.7 % Normal 32.0-34.5 [facility] MCV (RBC) [Entitic vol] 90.8 fL Normal 80.0-99.9 [facility] Monocytes (Bld) [#/Vol] 0.57 E9/L Normal 0.10-0.95 [facility] Monocytes/100 WBC (Bld) 6.7 % Normal 2.0-12.0 [facility] Neutrophils (Bld) [#/Vol] 4.99 E9/L Normal 1.80-7.30 [facility] Neutrophils/100 WBC (Bld) 58.3 % Normal 43.0-80.0 [facility] Platelet mean volume (Bld) [Entitic vol] 10.6 fL Normal 7.0-12.0 [facility] Platelets (Bld) [#/Vol] 277 E9/L Normal 130-450 [facility] RBC (Bld) [#/Vol] 5.12 E12/L Normal 3.80-5.80 [facility] WBC (Bld) [#/Vol] 8.6 E9/L Normal 4.5-11.5 [facility] Comprehensive Metabolic Pane l reflex Mgon 03-28-2018 Albumin [Mass/Vol] 4.8 g/dL Normal 3.5-5.2 [facility] ALP [Catalytic activity/Vol] 81 U/L Normal 40-129 [facility] ALT [Catalytic activity/Vol] 76 U/L High 0-40 [facility] Anion gap [Moles/Vol] 13 mmol/L Normal 7-16 [facility] AST [Catalytic activity/Vol] 48 U/L High 0-39 [facility] Bilirubin [Mass/Vol] 0.4 mg/dL Normal 0.0-1.2 [facility] Calcium [Mass/Vol] 10.2 mg/dL Normal 8.6-10.2 [facility] Chloride [Moles/Vol] 100 mmol/L Normal 98-107 [facility] CO2 [Moles/Vol] 26 mmol/L Normal 22-29 [facility] Creatinine [Mass/Vol] 0.9 mg/dL Normal 0.7-1.2 [facility] GFR/1.73 sq M predicted among blacks MDRD (S/P/Bld) [Vol rate/Area] mL/min/{1.73_m2} Normal [facility] GFR/1.73 sq M predicted among non-blacks MDRD (S/P/Bld) [Vol rate/Area] mL/min/{1.73_m2} Normal >=60 [facility] Comment on above: Result Comment: Java Programmer Analyst russ Kidney Disease: less than 60 ml/min/1.73 sq.m. Kidney Failure: less than 15 ml/min/1.73 sq.m. Results valid for patients 18 years and older. Glucose [Mass/Vol] 101 mg/dL High 74-99 [facility] Potassium reflex Mg 4.1 mmol/L Normal 3.5-5.0 [facility] Protein [Mass/Vol] 7.9 g/dL Normal 6.4-8.3 [facility] Sodium [Moles/Vol] 139 mmol/L Normal 132-146 [facility] Urea nitrogen [Mass/Vol] 10 mg/dL Normal 6-20 [facility] Lipaseon 03-28-2018 Lipase [Catalytic activity/Vol] 141 U/L High 13-60 [facility] XR LUMBAR SPINE (2-3 VIEWS)o n [...] Domi Stein MD 03/13/18 Final result Normal [facility] Vital Signs Date Time Vital Sign Value Performing Clinician Facility 12-08-2024 13:20-0400 Diastolic blood pressure 83 mm[Hg] Sonya Cramer MD Work Phone: [facility] 12-08-2024 13:20-0400 Heart rate 56 /min Sonya Cramer MD Work Phone: [facility] 12-08-2024 13:20-0400 Respiratory rate 18 /min Sonya Cramer MD Work Phone: [facility] 12-08-2024 13:20-0400 SaO2% (BldA) [Mass fraction] 100 % Sonya Cramer MD Work Phone: [facility] 12-08-2024 13:20-0400 Systolic blood pressure 127 mm[Hg] Sonya Cramer MD Work Phone: [facility] 12-08-2024 13:00-0400 Body temperature 97.3 [degF] Sonya Cramer MD Work Phone: [facility] 12-08-2024 12:25-0400 Body height 185.4 cm Sonya Cramer MD Work Phone: [facility] 12-08-2024 12:25-0400 Body mass index (BMI) [Ratio] 25.73 kg/m2 Sonya Cramer MD Work Phone: [facility] 12-08-2024 12:25-0400 Body weight 88.45 kg Sonya Cramer MD Work Phone: [facility] 12-01-2024 11:59-0400 Body temperature 98.4 [degF] No Primary Care Physician [facility] 12-01-2024 11:59-0400 Diastolic blood pressure 70 mm[Hg] No Primary Care Physician [facility] 12-01-2024 11:59-0400 Heart rate 59 /min No Primary Care Physician [facility] 12-01-2024 11:59-0400 Respiratory rate 18 /min No Primary Care Physician [facility] 12-01-2024 11:59-0400 SaO2% (BldA) [Mass fraction] 98 % No Primary Care Physician [facility] 12-01-2024 11:59-0400 Systolic blood pressure 122 mm[Hg] No Primary Care Physician [facility] 11-30-2024 13:45-0400 Body height 185.42 cm No Primary Care Physician [facility] 11-30-2024 13:45-0400 Body weight 84.32 kg No Primary Care Physician [facility] 11-30-2024 01:59-0400 Body mass index (BMI) [Ratio] 24.5 kg/m2 No Primary Care Physician [facility] 11-01-2024 08:55-0400 Body height 185.4 cm Guillermo KTK Groupbriansky PA-C Work Phone: [facility] 11-01-2024 08:55-0400 Body mass index (BMI) [Ratio] 26.55 kg/m2 Guillermo KTK Grouphosky PA-C Work Phone: [facility] 11-01-2024 08:55-0400 Body temperature 97 [degF] Guillermo KTK Grouphosky PA-C Work Phone: [facility] 11-01-2024 08:55-0400 Body weight 91.26 kg Guillermo Vichosky PA-C Work Phone: [facility] 11-01-2024 08:55-0400 Diastolic blood pressure 75 mm[Hg] Guillermo Vichosky PA-C Work Phone: [facility] 11-01-2024 08:55-0400 Heart rate 72 /min Guillermo Vichosky PA-C Work Phone: [facility] [employer] 11-01-2024 08:55-0400 SaO2% (BldA) [Mass fraction] 98 % Guillermo Elieser PA-C Work Phone: [facility] [employer] 11-01-2024 08:55-0400 Systolic blood pressure 120 mm[Hg] Guillermo Elieser PA-C Work Phone: [facility] [employer] 08-23-2024 11:02-0400 Body temperature 96.4 [degF] Seema Hartley NURSE HEALTHCARE MANAGER - [employer]APE [employer]ULES PRINTING MACHINE OPERATOR Work Phone: [facility] [employer] 08-23-2024 11:02-0400 Diastolic blood pressure 62 mm[Hg] Seema Hartley NURSE HEALTHCARE MANAGER - [employer]UL[employer] PRINTING MACHINE OPERATOR Work Phone: [facility] [employer] 08-23-2024 11:02-0400 Heart rate 73 /min Seema Mclains NURSE HEALTHCARE MANAGER - TAPE RUL[employer] PRINTING MACHINE OPERATOR Work Phone: [facility] [employer] 08-23-2024 11:02-0400 SaO2% (BldA) [Mass fraction] 97 % Seema Hartley NURSE HEALTHCARE MANAGER - TAPE RUL[employer] PRINTING MACHINE OPERATOR Work Phone: [facility] [employer] 08-23-2024 11:02-0400 Systolic blood pressure 114 mm[Hg] Seema Hartley NURSE HEALTHCARE MANAGER - TAPE RULES PRINTING MACHINE OPERATOR Work Phone: [facility] [employer] 06-26-2024 22:08-0400 Diastolic blood pressure 97 mm[Hg] Mejgon Gifty DO Work Phone: [facility] [employer] 06-26-2024 22:08-0400 Heart rate 94 /min Mejgon Gifty DO Work Phone: [facility] [employer] 06-26-2024 22:08-0400 Respiratory rate 18 /min Mejgon Gifty DO Work Phone: [facility] [employer] 06-26-2024 22:08-0400 SaO2% (BldA) [Mass fraction] 98 % Mejgon Gifty DO Work Phone: [facility] [employer] 06-26-2024 22:08-0400 Systolic blood pressure 136 mm[Hg] Mejgon Gifty DO Work Phone: [facility] [employer] 06-26-2024 19:11-0400 Body height 185.4 cm Mattie Durbin DO Work Phone: [facility] [employer] 06-26-2024 19:11-0400 Body mass index (BMI) [Ratio] 27.71 kg/m2 Mattie Durbin DO Work Phone: [facility] [employer] 06-26-2024 19:11-0400 Body weight 95.25 kg Mattie Durbin DO Work Phone: [facility] [employer] 06-26-2024 19:10-0400 Body temperature 98.2 [degF] Mattie Durbin DO Work Phone: [facility] [employer] 06-20-2024 00:09-0400 Diastolic blood pressure 70 mm[Hg] Cory Adame DO Work Phone: [facility] [employer] 06-20-2024 00:09-0400 Heart rate 69 /min Cory Adame DO Work Phone: [facility] [employer] 06-20-2024 00:09-0400 Respiratory rate 14 /min Cory Adame DO Work Phone: [facility] [employer] 06-20-2024 00:09-0400 SaO2% (BldA) [Mass fraction] 99 % Cory Adame DO Work Phone: [employer] 06-20-2024 00:09-0400 Systolic blood pressure 111 mm[Hg] Cory Wakefieldy DO Work Phone: [facility] [employer] 06-19-2024 19:27-0400 Body temperature 97.39 [degF] Cory Wakefieldy DO Work Phone: [employer] [employer] 06-19-2024 19:25-0400 Body height 185.4 cm Cory Wakefieldy DO Work Phone: [facility] [employer] 06-19-2024 19:25-0400 Body mass index (BMI) [Ratio] 29.03 kg/m2 Cory Wakefieldy DO Work Phone: [facility] 06-19-2024 19:25-0400 Body weight 99.79 kg Cory Adame DO Work Phone: [facility] 06-18-2024 16:59-0400 Diastolic blood pressure 94 mm[Hg] Tam Rich DO Work Phone: [facility] 06-18-2024 16:59-0400 Heart rate 90 /min Tam Rich DO Work Phone: [facility] 06-18-2024 16:59-0400 Respiratory rate 16 /min Tam Rich DO Work Phone: [facility] 06-18-2024 16:59-0400 Systolic blood pressure 142 mm[Hg] Tam Rich DO Work Phone: [facility] 06-18-2024 15:35-0400 Body temperature 97.3 [degF] Tam Rich DO Work Phone: [facility] 06-18-2024 15:35-0400 SaO2% (BldA) [Mass fraction] 100 % Tam Rich DO Work Phone: [facility] 06-18-2024 15:35-0400 Body height 185.4 cm Tam Rich DO Work Phone: [facility] 06-18-2024 15:35-0400 Body mass index (BMI) [Ratio] 27.71 kg/m2 Tam Rich DO Work Phone: [facility] 06-18-2024 15:35-0400 Body weight 95.25 kg Tam Rich DO Work Phone: [facility] 06-12-2024 23:36-0400 Diastolic blood pressure 92 mm[Hg] Donald Hill Jr., DO Work Phone: [facility] 06-12-2024 23:36-0400 Heart rate 97 /min Donald Hill Jr., DO Work Phone: [facility] 06-12-2024 23:36-0400 Respiratory rate 16 /min Donald Hill JrJose, DO Work Phone: [facility] [employer] 06-12-2024 23:36-0400 SaO2% (BldA) [Mass fraction] 97 % Donald Hill Jr., DO Work Phone: [facility] [employer] 06-12-2024 23:36-0400 Systolic blood pressure 159 mm[Hg] Donald Hill Jr., DO Work Phone: [facility] [employer] 06-12-2024 20:55-0400 Body mass index (BMI) [Ratio] 29.03 kg/m2 Donald Hill Jr., DO Work Phone: [facility] [employer] 06-12-2024 20:55-0400 Body temperature 100 [degF] Donald Hill Jr., DO Work Phone: [facility] [employer] 06-12-2024 20:55-0400 Body weight 99.79 kg Donald Hill Jr., DO Work Phone: [facility] [employer] 06-04-2024 15:37-0400 Body mass index (BMI) [Ratio] 29.69 kg/m2 Josseline Weber MD Work Phone: [facility] [employer] 06-04-2024 15:37-0400 Body temperature 97.3 [degF] Josseline Weber MD Work Phone: [facility] [employer] 06-04-2024 15:37-0400 Body weight 102.06 kg Josseline Weber MD Work Phone: [facility] [employer] 06-04-2024 15:37-0400 Diastolic blood pressure 109 mm[Hg] Josseline Weber MD Work Phone: [facility] [employer] 06-04-2024 15:37-0400 Heart rate 103 /min Josseline Weber MD Work Phone: [facility] [employer] 06-04-2024 15:37-0400 Respiratory rate 18 /min Josseline Weber MD Work Phone: [facility] [employer] 06-04-2024 15:37-0400 SaO2% (BldA) [Mass fraction] 99 % Josseline Weber MD Work Phone: [facility] [employer] 06-04-2024 15:37-0400 Systolic blood pressure 157 mm[Hg] Josseline Weber MD Work Phone: [facility] [employer] 06-01-2024 12:57-0400 Body height 185.4 cm Seema Hartley NURSE HEALTHCARE MANAGER - TAPE RULES PRINTING MACHINE OPERATOR Work Phone: [facility] [employer] 06-01-2024 12:57-0400 Body mass index (BMI) [Ratio] 29.79 kg/m2 Seema Hartley NURSE HEALTHCARE MANAGER - T[employer] RUL[employer] PRINTING MACHINE OPERATOR Work Phone: [facility] [employer] 06-01-2024 12:57-0400 Body temperature 97 [degF] Seema Hartley NURSE HEALTHCARE MANAGER - T[employer] R[employer] PRINTING MACHINE OPERATOR Work Phone: [facility] [employer] 06-01-2024 12:57-0400 Body weight 102.42 kg Seema Hartley NURSE HEALTHCARE MANAGER - T[employer] PRINTING MACHINE OPERATOR Work Phone: [facility] [employer] 06-01-2024 12:57-0400 Diastolic blood pressure 78 mm[Hg] Seema Hartley NURSE HEALTHCARE MANAGER - T[employer] PRINTING MACHINE OPERATOR Work Phone: [facility] [employer] 06-01-2024 12:57-0400 Heart rate 80 /min Seema Hartley NURSE HEALTHCARE MANAGER - TAPE RUL[employer] PRINTING MACHINE OPERATOR Work Phone: [facility] [employer] 06-01-2024 12:57-0400 SaO2% (BldA) [Mass fraction] 98 % Seema Hartley NURSE HEALTHCARE MANAGER - TAPE RULES PRINTING MACHINE OPERATOR Work Phone: [facility] [employer] 06-01-2024 12:57-0400 Systolic blood pressure 116 mm[Hg] Seema Hartley NURSE HEALTHCARE MANAGER - TAPE RULES PRINTING MACHINE OPERATOR Work Phone: [facility] [employer] 05-30-2024 22:07-0400 Body height 185.4 cm Mattie Gifty DO Work Phone: [facility] [employer] 05-30-2024 22:07-0400 Body mass index (BMI) [Ratio] 32.98 kg/m2 Mejgon Gifty DO Work Phone: [facility] [employer] 05-30-2024 22:07-0400 Body temperature 97.9 [degF] Mattie Gifty DO Work Phone: [facility] [employer] 05-30-2024 22:07-0400 Body weight 113.4 kg Mattie Gallegosya DO Work Phone: [facility] [employer] 05-30-2024 22:07-0400 Diastolic blood pressure 96 mm[Hg] Latonian Gifty DO Work Phone: [facility] [employer] 05-30-2024 22:07-0400 Heart rate 88 /min Mattie Gifty DO Work Phone: [facility] [employer] 05-30-2024 22:07-0400 Respiratory rate 18 /min Mattie Gifty DO Work Phone: [facility] [employer] 05-30-2024 22:07-0400 SaO2% (BldA) [Mass fraction] 97 % Mattie Gallegosya DO Work Phone: [facility] [employer] 05-30-2024 22:07-0400 Systolic blood pressure 149 mm[Hg] Mattie Gallegosya DO Work Phone: [facility] [employer] 05-22-2024 17:16-0400 Diastolic blood pressure 88 mm[Hg] Tam Rich DO Work Phone: [facility] [employer] 05-22-2024 17:16-0400 Heart rate 97 /min Tam Rich DO Work Phone: [facility] [employer] 05-22-2024 17:16-0400 Respiratory rate 16 /min Tam Rich DO Work Phone: [facility] [employer] 05-22-2024 17:16-0400 SaO2% (BldA) [Mass fraction] 99 % Tam Rich DO Work Phone: [facility] [employer] 05-22-2024 17:16-0400 Systolic blood pressure 149 mm[Hg] Tam Rich DO Work Phone: [facility] [employer] 05-22-2024 14:09-0400 Body temperature 97 [degF] Tam Rich DO Work Phone: [facility] [employer] 05-07-2024 18:12-0400 Diastolic blood pressure 107 mm[Hg] Markie Gombash DO Work Phone: [facility] [employer] 05-07-2024 18:12-0400 Heart rate 84 /min Markie Gombash DO Work Phone: [facility] [employer] 05-07-2024 18:12-0400 Respiratory rate 16 /min Markie Gombash DO Work Phone: [facility] [employer] 05-07-2024 18:12-0400 SaO2% (BldA) [Mass fraction] 97 % Markie Gombash DO Work Phone: [facility] [employer] 05-07-2024 18:12-0400 Systolic blood pressure 142 mm[Hg] Markie Gombash DO Work Phone: [facility] [employer] 05-07-2024 16:27-0400 Body temperature 97.39 [degF] Markie Gombash DO Work Phone: [facility] [employer] 05-07-2024 16:23-0400 Body height 185.4 cm Markie Gombash DO Work Phone: [facility] [employer] 05-07-2024 16:23-0400 Body mass index (BMI) [Ratio] 32.98 kg/m2 Markie Gombash DO Work Phone: [facility] [employer] 05-07-2024 16:23-0400 Body weight 113.4 kg Markie Gombash DO Work Phone: [facility] [employer] 04-20-2024 04:57-0400 Body temperature 97.81 [degF] Nancy Sultana DO Work Phone: [facility] [employer] 04-20-2024 04:57-0400 Diastolic blood pressure 83 mm[Hg] Nancylorraine Sultana DO Work Phone: [facility] [employer] 04-20-2024 04:57-0400 Heart rate 62 /min Nancylorraine Sultana DO Work Phone: [facility] [employer] 03-12-2025 04:57-0400 Respiratory rate 16 /min Nancy Sultana DO Work Phone: [facility] [employer] 04-20-2024 04:57-0400 SaO2% (BldA) [Mass fraction] 97 % Nancy Sultana DO Work Phone: [facility] [employer] 04-20-2024 04:57-0400 Systolic blood pressure 129 mm[Hg] Nancy Sultana DO Work Phone: [facility] [employer] 04-16-2024 23:27-0500 Body height 185.4 cm Nancy Sultana DO Work Phone: [facility] [employer] 04-16-2024 23:27-0500 Body mass index (BMI) [Ratio] 32.32 kg/m2 Nancy Sultana DO Work Phone: [facility] [employer] 04-16-2024 23:27-0500 Body weight 111.13 kg Nancy Sultana DO Work Phone: [facility] [employer] 04-06-2024 13:10-0500 Diastolic blood pressure 65 mm[Hg] [facility] 04-06-[facility]24 13:10-0500 Heart rate 65 /min [facility] Boyd [facility] 04-06-2024 13:10-0500 Systolic blood pressure 112 mm[Hg] [facility] 04-06-2024 11:07-0500 Body temperature 98.8 [degF] Enio Boyd DO Work Phone: [employer] 04-06-2024 11:07-0500 Respiratory rate 16 /min Enio Boyd DO Work Phone: [employer] 04-06-2024 11:07-0500 SaO2% (BldA) [Mass fraction] 96 % Enio Boyd DO Work Phone: [employer] 04-04-2024 04:10-0500 Body height 185.4 cm Enio Boyd DO Work Phone: [employer] 04-04-2024 04:10-0500 Body mass index (BMI) [Ratio] 32.32 kg/m2 Enio Boyd DO Work Phone: [employer] [employer] 04-04-2024 04:10-0500 Body weight 111.13 kg Enio Boyd DO Work Phone: [employer] [employer] 03-22-2024 15:37-0500 Diastolic blood pressure 103 mm[Hg] Tam Rich DO Work Phone: [employer] [employer] 03-22-2024 15:37-0500 Heart rate 102 /min Tam Rich DO Work Phone: [employer] 03-22-2024 15:37-0500 Respiratory rate 16 /min Tam Rich DO Work Phone: [employer] [employer] 03-22-2024 15:37-0500 SaO2% (BldA) [Mass fraction] 97 % Tam Rich DO Work Phone: [employer] [employer] 03-22-2024 15:37-0500 Systolic blood pressure 154 mm[Hg] Tam Rich DO Work Phone: [employer] 03-22-2024 13:17-0500 Body temperature 97.39 [degF] Tam Rich DO Work Phone: [employer] [employer] 02-08-2024 12:04-0500 Body temperature 97.9 [degF] Francisco Landa MD Work Phone: [employer] [employer] 02-08-2024 12:04-0500 Diastolic blood pressure 102 mm[Hg] Francisco Landa MD Work Phone: [employer] 02-08-2024 12:04-0500 Heart rate 102 /min Francisco Landa MD Work Phone: [facility] [employer] 02-08-2024 12:04-0500 Respiratory rate 18 /min Francisco Landa MD Work Phone: [facility] [employer] 02-08-2024 12:04-0500 SaO2% (BldA) [Mass fraction] 95 % Francisco Landa MD Work Phone: [facility] [employer] 02-08-2024 12:04-0500 Systolic blood pressure 141 mm[Hg] Francisco Landa MD Work Phone: [facility] [employer] 02-06-2024 13:02-0500 Body height 185.4 cm Francisco Landa MD Work Phone: [facility] [employer] 02-04-2024 13:21-0500 Body mass index (BMI) [Ratio] 31 kg/m2 Francisco Landa MD Work Phone: [facility] [employer] 02-04-2024 13:21-0500 Body weight 106.59 kg Francisco Landa MD Work Phone: [employer] [employer] 01-26-2024 05:42-0500 Body temperature 97.7 [degF] Calvin Stephens MD Work Phone: [employer] 01-26-2024 05:42-0500 Diastolic blood pressure 92 mm[Hg] Calvin Stephens MD Work Phone: [employer] 01-26-2024 05:42-0500 Heart rate 83 /min Calvin Stephens MD Work Phone: [employer] 01-26-2024 05:42-0500 Respiratory rate 18 /min Calvin Stephens MD Work Phone: [employer] 01-26-2024 05:42-0500 SaO2% (BldA) [Mass fraction] 97 % Calvin Stephens MD Work Phone: [employer] [employer] TV 01-26-2024 05:42-0500 Systolic blood pressure 134 mm[Hg] Calvin Stephens MD Work Phone: [employer] 01-08-2024 05:28-0500 Body temperature 97.3 [degF] Gracy Dyer DO Work Phone: [employer] 01-08-2024 05:28-0500 Diastolic blood pressure 107 mm[Hg] Gracy Dyer DO Work Phone: [employer] 01-08-2024 05:28-0500 Heart rate 91 /min Gracy Dyer DO Work Phone: [facility] [employer] 01-08-2024 05:28-0500 Respiratory rate 18 /min Gracy Dyer DO Work Phone: [facility] [employer] 01-08-2024 05:28-0500 SaO2% (BldA) [Mass fraction] 97 % Gracy Dyer DO Work Phone: [facility] [employer] 01-08-2024 05:28-0500 Systolic blood pressure 164 mm[Hg] Gracy Dyer DO Work Phone: [facility] [employer] 01-08-2024 05:26-0500 Body height 185.4 cm Gracy Dyer DO Work Phone: [facility] [employer] 01-08-2024 05:26-0500 Body mass index (BMI) [Ratio] 32.32 kg/m2 Gracy Dyer DO Work Phone: [facility] [employer] 01-08-2024 05:26-0500 Body weight 111.13 kg Gracy Dyer DO Work Phone: [facility] [employer] 12-17-2023 07:22-0500 Body temperature 97.81 [degF] Idris Danielson MD Work Phone: [facility] [employer] 12-17-2023 07:22-0500 Diastolic blood pressure 92 mm[Hg] Idris Danielson MD Work Phone: [facility] [employer] 12-17-2023 07:22-0500 Heart rate 62 /min Idris Danielson MD Work Phone: [facility] [employer] 12-17-2023 07:22-0500 Respiratory rate 17 /min Idris Danielson MD Work Phone: [facility] [employer] 12-17-2023 07:22-0500 SaO2% (BldA) [Mass fraction] 96 % Idris Danielson MD Work Phone: [facility] [employer] 12-17-2023 07:22-0500 Systolic blood pressure 146 mm[Hg] Idris Danielson MD Work Phone: [facility] [employer] 12-16-2023 07:27-0500 Body height 177.8 cm Idris Danielson MD Work Phone: [facility] [employer] 12-14-2023 08:18-0500 Body mass index (BMI) [Ratio] 36.06 kg/m2 Idris Danielson MD Work Phone: [facility] [employer] 12-14-2023 08:18-0500 Body weight 114 kg Idris Danielson MD Work Phone: [facility] [employer] 11-28-2023 09:05-0400 Body temperature 97.5 [degF] DENA Jett MD Work Phone: [facility] [employer] 11-28-2023 09:05-0400 Diastolic blood pressure 75 mm[Hg] DENA Jett MD Work Phone: [facility] [employer] 11-28-2023 09:05-0400 Heart rate 69 /min DENA Jett MD Work Phone: [facility] [employer] 11-28-2023 09:05-0400 Respiratory rate 17 /min DENA Jett MD Work Phone: [facility] [employer] 11-28-2023 09:05-0400 SaO2% (BldA) [Mass fraction] 96 % DENA Jett MD Work Phone: [facility] [employer] 11-28-2023 09:05-0400 Systolic blood pressure 125 mm[Hg] DENA Jett MD Work Phone: [facility] [employer] 11-27-2023 15:12-0400 Body height 185.4 cm DENA Jett MD Work Phone: [employer] 11-21-2023 14:17-0400 Body mass index (BMI) [Ratio] 33.25 kg/m2 DENA Jett MD Work Phone: [facility] [employer] 11-21-2023 14:17-0400 Body weight 114.31 kg DENA Jett MD Work Phone: [facility] [employer] 10-18-2023 07:50-0400 Body temperature 96.91 [degF] Francisco Zee MD Work Phone: [employer] 10-18-2023 07:50-0400 Diastolic blood pressure 73 mm[Hg] Francisco Zee MD Work Phone: [facility] [employer] 10-18-2023 07:50-0400 Heart rate 79 /min Francisco Zee MD Work Phone: [facility] [employer] 10-18-2023 07:50-0400 Respiratory rate 18 /min Francisco Zee MD Work Phone: [facility] [employer] 10-18-2023 07:50-0400 SaO2% (BldA) [Mass fraction] 94 % Francisco Zee MD Work Phone: [facility] [employer] 10-18-2023 07:50-0400 Systolic blood pressure 120 mm[Hg] Francisco Zee MD Work Phone: [facility] [employer] 10-16-2023 18:54-0400 Body height 185 cm Francisco Zee MD Work Phone: [facility] [employer] 10-16-2023 18:54-0400 Body mass index (BMI) [Ratio] 33.13 kg/m2 Francisco Zee MD Work Phone: [facility] [employer] 10-16-2023 18:54-0400 Body weight 113.4 kg Francisco Zee MD Work Phone: [facility] [employer] 10-16-2023 04:13-0400 Diastolic blood pressure 88 mm[Hg] Idris Danielson MD Work Phone: [facility] [employer] 10-16-2023 04:13-0400 Heart rate 72 /min Idris Danielson MD Work Phone: [employer] 10-16-2023 04:13-0400 Respiratory rate 16 /min Idris Danielson MD Work Phone: [facility] [employer] 10-16-2023 04:13-0400 SaO2% (BldA) [Mass fraction] 96 % Idris Danielson MD Work Phone: [facility] [employer] 10-16-2023 04:13-0400 Systolic blood pressure 158 mm[Hg] Idris Danielson MD Work Phone: [facility] [employer] 10-16-2023 01:44-0400 Body height 185.4 cm Idris Danielson MD Work Phone: [facility] [employer] 10-16-2023 01:44-0400 Body mass index (BMI) [Ratio] 32.98 kg/m2 Idris Danielson MD Work Phone: [facility] [employer] 10-16-2023 01:44-0400 Body temperature 97.39 [degF] Idris Danielson MD Work Phone: [facility] [employer] 10-16-2023 01:44-0400 Body weight 113.4 kg Idris Danielson MD Work Phone: [facility] [employer] 10-01-2023 03:04-0400 Body temperature 97.9 [degF] Bhupinder Boyd MD Work Phone: [facility] [employer] 10-01-2023 03:04-0400 Diastolic blood pressure 100 mm[Hg] Bhupinder Boyd MD Work Phone: [facility] [employer] 10-01-2023 03:04-0400 Heart rate 94 /min Bhupinder Boyd MD Work Phone: [facility] [employer] 10-01-2023 03:04-0400 Respiratory rate 18 /min Bhupinder Boyd MD Work Phone: [facility] [employer] 10-01-2023 03:04-0400 SaO2% (BldA) [Mass fraction] 97 % Bhupinder Boyd MD Work Phone: [facility] [employer] 10-01-2023 03:04-0400 Systolic blood pressure 146 mm[Hg] Bhupinder Boyd MD Work Phone: [facility] [employer] 08-15-2023 11:10-0400 Body temperature 98.01 [degF] Jossy Lynn MD Work Phone: [facility] [employer] 08-15-2023 11:10-0400 Diastolic blood pressure 91 mm[Hg] Jossy Lynn MD Work Phone: [facility] [employer] 08-15-2023 11:10-0400 Heart rate 63 /min Jossy Lynn MD Work Phone: [facility] [employer] 08-15-2023 11:10-0400 Respiratory rate 16 /min Jossy Lynn MD Work Phone: [facility] [employer] 08-15-2023 11:10-0400 SaO2% (BldA) [Mass fraction] 95 % Jossy Lynn MD Work Phone: [facility] [employer] 08-15-2023 11:10-0400 Systolic blood pressure 150 mm[Hg] Jossy Lynn MD Work Phone: [facility] [employer] 08-10-2023 20:07-0400 Body height 185.4 cm Jossy Lynn MD Work Phone: [facility] [employer] 08-10-2023 20:07-0400 Body mass index (BMI) [Ratio] 35.62 kg/m2 Jossy Lynn MD Work Phone: [facility] [employer] 08-10-2023 20:07-0400 Body weight 122.47 kg Jossy Lynn MD Work Phone: [facility] [employer] 06-28-2023 09:13-0400 Body temperature 97.11 [degF] Jossy Lynn MD Work Phone: [facility] [employer] 06-28-2023 09:13-0400 Diastolic blood pressure 91 mm[Hg] Jossy Lynn MD Work Phone: [facility] [employer] 06-28-2023 09:13-0400 Heart rate 66 /min Jossy Lynn MD Work Phone: [facility] [employer] 06-28-2023 09:13-0400 Respiratory rate 16 /min Jossy Lynn MD Work Phone: [facility] [employer] 06-28-2023 09:13-0400 SaO2% (BldA) [Mass fraction] 96 % Jossy Lynn MD Work Phone: [facility] [employer] 06-28-2023 09:13-0400 Systolic blood pressure 145 mm[Hg] Jossy Lynn MD Work Phone: [facility] [employer] 06-25-2023 10:29-0400 Body height 185.4 cm Jossy Lynn MD Work Phone: [facility] [employer] 06-25-2023 10:29-0400 Body mass index (BMI) [Ratio] 32.98 kg/m2 Jossy Lynn MD Work Phone: [facility] [employer] 06-25-2023 10:29-0400 Body weight 113.4 kg Jossy Lynn MD Work Phone: [facility] [employer] 01-07-2023 08:05-0500 Body height 185.4 cm Erin Signs Work Phone: [facility] [employer] 01-07-2023 08:05-0500 Body mass index (BMI) [Ratio] 32.32 kg/m2 Erin Signs Work Phone: [facility] [employer] 01-07-2023 08:05-0500 Body temperature 97.3 [degF] Erin Signs Work Phone: [facility] [employer] 01-07-2023 08:05-0500 Body weight 111.13 kg Erin Signs Work Phone: [facility] [employer] 01-07-2023 08:05-0500 Diastolic blood pressure 78 mm[Hg] Erin Signs Work Phone: [facility] [employer] 01-07-2023 08:05-0500 Heart rate 64 /min Erin Signs Work Phone: [facility] [employer] 01-07-2023 08:05-0500 SaO2% (BldA) [Mass fraction] 98 % Erin Arce MD Work Phone: [facility] [employer] 01-07-2023 08:05-0500 Systolic blood pressure 124 mm[Hg] Erin Arce MD Work Phone: [facility] [employer] 12-16-2022 23:58-0500 Body temperature 98.2 [degF] Duong Milian MD Work Phone: [facility] [employer] 12-16-2022 23:58-0500 Diastolic blood pressure 76 mm[Hg] Duong Milian MD Work Phone: [facility] [employer] 12-16-2022 23:58-0500 Heart rate 65 /min Duong Milian MD Work Phone: [facility] [employer] 12-16-2022 23:58-0500 Respiratory rate 18 /min Duong Milian MD Work Phone: [facility] [employer] 12-16-2022 23:58-0500 SaO2% (BldA) [Mass fraction] 96 % Duong Milian MD Work Phone: [facility] [employer] 12-16-2022 23:58-0500 Systolic blood pressure 112 mm[Hg] Duong Milian MD Work Phone: [facility] [employer] 11-08-2022 12:00-0400 Body temperature 97.7 [degF] Bhupinder Boyd MD Work Phone: [facility] [employer] 11-08-2022 12:00-0400 Diastolic blood pressure 84 mm[Hg] Bhupinder Boyd MD Work Phone: [facility] [employer] 11-08-2022 12:00-0400 Heart rate 78 /min Bhupinder Boyd MD Work Phone: [facility] [employer] 11-08-2022 12:00-0400 Respiratory rate 16 /min Bhupinder Boyd MD Work Phone: [facility] [employer] 11-08-2022 12:00-0400 SaO2% (BldA) [Mass fraction] 95 % Bhupinder Boyd MD Work Phone: [facility] [employer] 11-08-2022 12:00-0400 Systolic blood pressure 124 mm[Hg] Bhupinder Boyd MD Work Phone: [facility] [employer] 11-06-2022 09:00-0400 Body mass index (BMI) [Ratio] 36.3 kg/m2 Bhupinder Boyd MD Work Phone: [facility] [employer] 11-06-2022 09:00-0400 Body weight 114.76 kg Bhupinder Boyd MD Work Phone: [facility] [employer] 11-06-2022 06:47-0400 Body height 177.8 cm Bhupinder Boyd MD Work Phone: [facility] [employer] 08-10-2022 04:06-0400 Diastolic blood pressure 99 mm[Hg] Guillermo Perales MD Work Phone: [facility] [employer] 08-10-2022 04:06-0400 Heart rate 92 /min Guillermo Perales MD Work Phone: [facility] [employer] 08-10-2022 04:06-0400 Respiratory rate 16 /min Guillermo Perales MD Work Phone: [facility] [employer] 08-10-2022 04:06-0400 SaO2% (BldA) [Mass fraction] 98 % Guillermo Perales MD Work Phone: [facility] [employer] 08-10-2022 04:06-0400 Systolic blood pressure 137 mm[Hg] Guillermo Preales MD Work Phone: [facility] [employer] 08-10-2022 01:29-0400 Body temperature 98.1 [degF] Guillermo Perales MD Work Phone: [facility] [employer] 07-11-2022 00:44-0400 Diastolic blood pressure 82 mm[Hg] Shaan Voll DO Work Phone: [facility] [employer] 07-11-2022 00:44-0400 Heart rate 74 /min Shaan Voll DO Work Phone: [facility] [employer] 07-11-2022 00:44-0400 Respiratory rate 18 /min Shaan Voll DO Work Phone: [facility] [employer] 07-11-2022 00:44-0400 SaO2% (BldA) [Mass fraction] 98 % Shaan Voll DO Work Phone: [facility] [employer] 07-11-2022 00:44-0400 Systolic blood pressure 134 mm[Hg] Shaan Voll DO Work Phone: [facility] [employer] 07-10-2022 22:44-0400 Body height 182.9 cm Shaan Voll DO Work Phone: [facility] [employer] 07-10-2022 22:44-0400 Body mass index (BMI) [Ratio] 31.19 kg/m2 Shaan Voll DO Work Phone: [facility] [employer] 07-10-2022 22:44-0400 Body temperature 98.01 [degF] Shaan Voll DO Work Phone: [facility] [employer] 07-10-2022 22:44-0400 Body weight 104.33 kg Shaan Voll DO Work Phone: [facility] [employer] 06-12-2022 15:19-0400 Body temperature 97.3 [degF] Neetu Jiménez Work Phone: [facility] [employer] 06-12-2022 15:19-0400 Diastolic blood pressure 101 mm[Hg] [facility] 06-12-2022 15:19-0400 Heart rate 91 /min Neetu Carvajaltz Work Phone: [employer] 06-12-2022 15:19-0400 Respiratory rate 16 /min Neetu Jiménez Work Phone: [employer] 06-12-2022 15:19-0400 SaO2% (BldA) [Mass fraction] 97 % Neetu Jiménez Work Phone: [facility] [employer] 06-12-2022 15:19-0400 Systolic blood pressure 147 mm[Hg] Neetu Carvajaltz Work Phone: [facility] [employer] 05-25-2022 20:22-0400 Body temperature 98.29 [degF] Mary Hamlin MD Work Phone: [facility] [employer] 05-25-2022 20:22-0400 Diastolic blood pressure 79 mm[Hg] Mary Hamlin MD Work Phone: [facility] [employer] 05-25-2022 20:22-0400 Heart rate 71 /min Mary Hamlin MD Work Phone: [facility] [employer] 05-25-2022 20:22-0400 Respiratory rate 18 /min Mary Hamlin MD Work Phone: [facility] [employer] 05-25-2022 20:22-0400 SaO2% (BldA) [Mass fraction] 95 % Mary Hamlin MD Work Phone: [facility] [employer] 05-25-2022 20:22-0400 Systolic blood pressure 138 mm[Hg] Mary Hamlin MD Work Phone: [facility] [employer] 05-25-2022 16:24-0400 Body height 182.9 cm Mary Hamlin MD Work Phone: [facility] [employer] 05-25-2022 16:24-0400 Body mass index (BMI) [Ratio] 31.87 kg/m2 Mary Hamlin MD Work Phone: [facility] [employer] 05-25-2022 16:24-0400 Body weight 106.59 kg Mary Hamlin MD Work Phone: [facility] [employer] 05-24-2022 06:45-0400 Diastolic blood pressure 84 mm[Hg] Mary Hamlin MD Work Phone: [facility] [employer] 05-24-2022 06:45-0400 Heart rate 67 /min Mary Hamlin MD Work Phone: [facility] [employer] 05-24-2022 06:45-0400 Respiratory rate 18 /min Mary Hamlin MD Work Phone: [facility] [employer] 05-24-2022 06:45-0400 SaO2% (BldA) [Mass fraction] 96 % Mary Hamlin MD Work Phone: [employer] 05-24-2022 06:45-0400 Systolic blood pressure 140 mm[Hg] Mary Hamlin MD Work Phone: [employer] 05-23-2022 23:17-0400 Body temperature 98.01 [degF] Mary Hamlin MD Work Phone: [employer] 05-23-2022 21:19-0400 Body height 185.4 cm Mary Hamlin MD Work Phone: [employer] 05-23-2022 21:19-0400 Body mass index (BMI) [Ratio] 31 kg/m2 Mary Hamlin MD Work Phone: [employer] 05-23-2022 21:19-0400 Body weight 106.59 kg Mary Hamlin MD Work Phone: [employer] 05-02-2022 20:29-0400 Heart rate 81 /min Neetu Jiménez Work Phone: [employer] 05-02-2022 20:29-0400 Respiratory rate 20 /min Neetu Jiménez Work Phone: [employer] 05-02-2022 20:29-0400 SaO2% (BldA) [Mass fraction] 97 % Neetu Jiménez Work Phone: [employer] 05-02-2022 18:34-0400 Body height 185.4 cm Neetu Jiménez Work Phone: [employer] 05-02-2022 18:34-0400 Body mass index (BMI) [Ratio] 31 kg/m2 Neetu Jiménez Work Phone: [employer] 05-02-2022 18:34-0400 Body weight 106.59 kg Neetu Jiménez Work Phone: [employer] 05-02-2022 18:30-0400 Diastolic blood pressure 88 mm[Hg] Neetu Jiménez Work Phone: [employer] 05-02-2022 18:30-0400 Systolic blood pressure 156 mm[Hg] Neetu Jiménez Work Phone: [employer] 05-02-2022 18:18-0400 Body temperature 97.81 [degF] Neetu Jiménez Work Phone: [employer] 03-19-2022 11:27-0500 Body temperature 98.6 [degF] Josseline Weber MD Work Phone: [employer] 03-19-2022 11:27-0500 Diastolic blood pressure 88 mm[Hg] Josseline Weber MD Work Phone: [employer] 03-19-2022 11:27-0500 Heart rate 78 /min Josseline Weber MD Work Phone: [employer] 03-19-2022 11:27-0500 SaO2% (BldA) [Mass fraction] 98 % Josseline Weber MD Work Phone: [employer] 03-19-2022 11:27-0500 Systolic blood pressure 125 mm[Hg] Josseline Weber MD Work Phone: [employer] 03-19-2022 05:57-0500 Respiratory rate 16 /min Josseline Weber MD Work Phone: [employer] 03-18-2022 17:19-0500 Body height 185.4 cm Josseline Weber MD Work Phone: [employer] 03-18-2022 17:19-0500 Body mass index (BMI) [Ratio] 31.66 kg/m2 Josseline Weber MD Work Phone: [employer] 03-18-2022 17:19-0500 Body weight 108.86 kg Josseline Weber MD Work Phone: [employer] 07-28-2019 20:18-0400 Body Temperature 97.9 [degF] Neetu Jiménez [facility] [place] 07-28-2019 20:18-0400 BP Diastolic 95 mm[Hg] Neetu Jiménez [facility] [place] , [place] 07-28-2019 20:18-0400 BP Systolic 141 mm[Hg] Neetu Jiménez [facility] [place] , [place] 07-28-2019 20:18-0400 Pulse (Heart Rate) 58 /min Neetu Jiménez [facility] [place], [place] 07-28-2019 20:18-0400 Pulse Oximetry 98 % Neetu Jiménez [facility] [place] , [place] 07-28-2019 20:18-0400 Respiratory Rate 16 /min [facility] [place] [place] 07-28-2019 17:51-0400 BMI (Body Mass Index) 32.32 kg/m2 Neetu [place] [facility] [place], [place] 07-28-2019 17:51-0400 Body weight 111.13 kg [facility] , [place] Encounters Encounter Date Encounter Type Care Provider Facility Start: 12-13-2024 End: 12-13-2024 Telephone encounter Katherin Monroe MA [facility] [place] Start: 12-08-2024 End: 12-08-2024 ambulatory TAM HUGHES [facility] Start: 12-08-2024 End: 12-08-2024 Subsequent hospital visit by physician Sonya Cramer MD Work Phone: [facility] Start: 12-01-2024 Non-patient / Non-visit Dr. Joe mclain [facility] Work Phone: Start: 11-30-2024 ambulatory Lázaro Olivo ty:[facility] Start: 11-30-2024 End: 12-01-2024 Evaluation and management of inpatient Joe Mcmillan Facility:[facility] Start: 11-24-2024 End: 11-24-2024 Telephone encounter Suzy Carrero MA [facility] [place] Comment on above: Appointment Confirma tion Start: 11-15-2024 End: 11-15-2024 Patient encounter procedure Ajay Ochoa DMD Work Phone: [facility] Comment on above: Extraction of tooth needed (Primary Dx) Start: 11-15-2024 End: 11-15-2024 ambulatory AJAY OCHOA [facility] Start: 11-07-2024 End: 11-08-2024 Follow-up encounter Guillermo Mon PA-C [facility] Phone[facility] Comment on above: AFP Tumor Marker, He patitis A Antibody, Total, Comprehensive metabolic panel, Additional followed-up results: 2 Start: 11-01-2024 End: 11-01-2024 Telephone encounter [facility]attie Law [facility] Comment on above: Care Coordination Start: 11-01-2024 End: 11-01-2024 Office outpatient visit 25 minutes Guillermo Mon PA-C Work Phone[facility] Comment on above: Alcoholic cirrhosis of liver without ascites (CMS/HCC) (HCC) (Primary Dx); Alcohol induced acute pancreatitis without necrosis or infection; Elevated liver enzymes; History of alcohol abuse; Polysubstance use disorder Alcoholic cirrhosis of liver without ascites (HCC) (Primary Dx); Alcohol induced acute pancreatitis without necrosis or infection; Elevated liver enzymes; History of alcohol abuse; Polysubstance use disorder Start: 11-01-2024 End: 11-01-[address] [facility] Start: 10-17-2024 End: 10-18-2024 Telephone encounter Provider Dental DDS Work Phone: [facility] Start: 10-12-2024 End: 10-12-2024 ambulatory GUILLERMOJAZMÍN PEACEKiran [facility] Start: 10-04-2024 FQHC visit, estab pt Lauren Perez DDS Work Phone: [facility] Start: 10-04-2024 End: 10-04-2024 Patient encounter procedure Lauren Perez DDS Work Phone: [facility] Start: 10-04-2024 End: 10-04-2024 ambulatory [facility] Start: 2024 End: 2024 ambulatory [facility] Start: 2024 End: 10-03-2024 Follow-up encounter Guillermo Mon PA-C Work Phone: [facility] Comment on above: Fibroscan Fibroscan, Protime-I NR, Liver-Kidney Microsome 1 Ab, Additional followed-up results: 10 Start: 2024 End: 2024 [facility] Start: 08-29-2024 End: 08-31-2024 Telephone encounter Provider Dental DDS Work Phone: [facility] Start: 08-24-2024 End: 08-24-2024 Patient encounter procedure Lauren Gold Bayron DDS Work Phone: [facility] Start: 08-24-2024 End: 08-24-2024 [facility] Start: 08-23-2024 End: 08-23-2024 Office outpatient visit 25 minutes Seema Hartley APRN - [employer] Work Phone: [facility] [facility] Comment on above: Alcohol induced acut e pancreatitis without necrosis or infection (Primary Dx); Elevated liver enzymes Start: 08-23-2024 End: 08-23-2024 [address] [facility] Start: 08-09-2024 End: 08-15-2024 Telephone encounter Tyree Lam DDS Work Phone: [facility] Comment on above: Reschedule Start: 07-25-2024 End: 07-25-2024 Telephone encounter Seema Hartley NURSE HEALTHCARE MANAGER - TAPE RULES PRINTING MACHINE OPERATOR Work Phone: [facility] Start: 07-02-2024 End: 07-02-2024 Emergency department patient visit ENIO Jacki BOYD [facility] Start: 06-26-2024 End: 06-26-2024 Emergency department patient visit Mattie Durbin DO Work Phone: [facility] ED Comment on above: Alcohol-induced acut e pancreatitis without infection or necrosis (Primary Dx) Start: 06-21-2024 End: 08-21-2024 Follow-up encounter Seema Hartley NURSE HEALTHCARE MANAGER - TAPE RULES PRINTING MACHINE OPERATOR Work Phone: [facility] Gastro[facility]ology - Court Comment on above: MR abdomen w and wo contrast, Triglyceride, Calcium, IgG 4 Start: 06-20-2024 End: 06-20-2024 Subsequent hospital visit by physician Seema Hartley APRN - TAPE RULES PRINTING MACHINE OPERATOR Work Phone: [facility] Comment on above: Acute on chronic leigh creatitis (CMS/HCC) (HCC) Start: 06-20-2024 End: 06-20-2024 amb[address] [facility] Start: 06-19-2024 End: 06-20-2024 Emergency department patient visit Cory Adame DO Work Phone: [facility] Comment on above: Epigastric abdominal pain (Primary Dx); Chronic pancreatitis, unspecified pancreatitis type (HCC) Start: 06-18-2024 End: 06-18-2024 Emergency department patient visit TAM [facility] Comment on above: Alcohol-induced sprinkler tender russ pancreatitis (CMS/HCC) (HCC) (Primary Dx) Start: 06-12-2024 End: 06-13-2024 Emergency department patient visit Donald Hill DO Work Phone: [facility] Comment on above: Abdominal pain, unsp ecified abdominal location (Primary Dx); Chronic pancreatitis, unspecified pancreatitis type (HCC) Start: 06-04-2024 End: 06-04-2024 Emergency department patient visit Josseline Weber MD Work Phone: [facility] Comment on above: Alcohol-induced sprinkler tender russ pancreatitis (CMS/HCC) (HCC) (Primary Dx); Pain of upper abdomen; Acute on chronic pancreatitis (CMS/HCC) (HCC) Start: 06-04-2024 End: 06-04-2024 Emergency department patient visit [facility] Start: 06-03-2024 End: 06-03-2024 ambulatory [facility] Start: 06-03-2024 End: 06-03-2024 Patient encounter procedure Mariely Cordon RN [facility] Start: 06-01-2024 End: 06-01-2024 Office outpatient visit 25 minutes Seema Hartley APRN - TAPE RULES PRINTING MACHINE OPERATOR Work Phone: [facility] Gastroenterology [facility] Comment on above: Acute on chronic leigh creatitis (CMS/HCC) (HCC) (Primary Dx); History of alcohol abuse; Polysubstance use disorder Start: 06-01-2024 End: 06-01-[address] [facility] Start: 05-30-2024 End: 05-31-2024 Emergency department patient visit Mattie Durbin DO Work Phone: [facility] Emergency Dept Comment on above: Acute on chronic leigh creatitis (CMS/HCC) (HCC) (Primary Dx) Start: 05-22-2024 End: 05-22-2024 Emergency department patient visit TAM HUGHES [facility] Comment on above: Alcohol-induced sprinkler tender russ pancreatitis (CMS/HCC) (HCC) (Primary Dx); Abdominal pain, generalized Start: 05-21-2024 End: 05-21-2024 Telephone encounter Roma Mckenzie RN [facility] Start: 05-21-2024 End: 05-21-2024 Emergency department patient visit BALJINDER DUNLAP Facility:[facility] Start: 05-14-2024 End: 05-16-2024 Telephone encounter Baljinder James RN [facility] Start: 05-07-2024 End: 05-07-2024 Emergency department patient visit Markie Lyons DO Work Phone: [facility] Emergency Dept Comment on above: Alcohol-induced acut e pancreatitis without infection or necrosis (Primary Dx) Start: 04-26-2024 End: 04-26-2024 Telephone encounter Roma Mckenzie RN [facility]Y [facility] Start: 04-21-2024 End: 04-23-2024 Telephone encounter Seema Sumner [facility] Clinical Communication Comment on above: Hospital Follow-up Start: 04-16-2024 End: 04-20-2024 Evaluation and management of inpatient Nancy Chávez Jerad DO Work Phone: [facility] Respiratory Unit 7W Comment on above: Acute recurrent panc reatitis (Primary Dx) Start: 04-04-2024 End: 04-06-2024 ambulatory PAULINO [facility] Start: 04-04-2024 End: 04-06-2024 Emergency department patient visit Enio Boyd DO Work Phone: [facility] Medical Surgical Unit MSU 4S Comment on above: Alcohol-induced acut e pancreatitis, unspecified complication status (Primary Dx); Alcohol withdrawal syndrome without complication (HCC); Pancreatitis, unspecified pancreatitis type Start: 03-30-2024 End: 03-30-2024 ambulatory TAM SAUL [facility] Start: 03-30-2024 End: 03-30-2024 Telemedicine consultation with patient Nikky Escobar MD Work Phone: [facility] [employer] [facility] [place] Comment on above: Severe alcohol use d isorder (HCC); Major depressive disorder, recurrent episode, moderate (HCC); RODRIGUEZ (generalized anxiety disorder); Tourette syndrome Start: 03-29-2024 End: 03-31-2024 Telephone encounter Nikky Escobar MD Work Phone: [facility] [employer] [facility] [place] Comment on above: Appointment Request Start: 03-22-2024 End: 03-22-2024 Emergency department patient visit TAM SAUL [facility] Comment on above: Pain of upper abdome n (Primary Dx); Transaminitis; Alcohol-induced chronic pancreatitis (CMS/HCC) (HCC); Alcohol use disorder Start: 02-20-2024 End: 02-20-2024 Telephone encounter Roma Mckenzie RN [facility] Start: 02-17-2024 End: 08-03-2024 Refill Nikky Escobar MD Work Phone: [facility] [employer] [facility] [place] Start: 02-04-2024 End: 02-08-2024 Evaluation and management of inpatient Francisco Landa MD Work Phone: [facility] Detox Unit 4E Comment on above: Alcohol withdrawal s yndrome without complication (HCC) (Primary Dx) Start: 01-29-2024 End: 01-29-2024 Telephone encounter Roma Mckenzie RN [facility] Start: 01-20-2024 End: 01-26-2024 Evaluation and management of inpatient Calvin Stephens MD Work Phone: [facility] Medical Surgical Unit MSU H5 Comment on above: Alcohol-induced acut e pancreatitis, unspecified complication status (Primary Dx); Abdominal pain, generalized Start: 01-08-2024 End: 01-08-2024 Emergency department patient visit Gracy Del GONZALEZ Work Phone: [facility] Comment on above: Abdominal pain, epig astric (Primary Dx); Acute pancreatitis, unspecified complication status, unspecified pancreatitis type Start: 12-22-2023 End: 12-22-2023 Emergency department patient visit TAM HUGHES Facility:[facility] Start: 12-13-2023 End: 12-17-2023 Evaluation and management of inpatient Idris Danielson MD Work Phone: [facility] Epilepsy Monitoring Unit 3N Comment on above: Alcoholic intoxicati on without complication (CMS/HCC) (HCC) (Primary Dx); Hematemesis of unknown etiology; Other depression Start: 11-30-2023 End: 12-01-2023 Telephone encounter Seema Sumner HEALTH SAFETY SPECIALIST [facility] Clinical Communication Comment on above: Hospital Follow-up Start: 11-17-2023 End: 11-28-2023 Evaluation and management of inpatient J Lisset Jett MD Work Phone: [facility] Cardiac Progressive Care Unit PCU 2E Start: 11-04-2023 End: 11-04-2023 Telemedicine consultation with patient Nikky Escobar MD Work Phone: [employer] Comment on above: Severe alcohol use d isorder (HCC); Major depressive disorder, recurrent episode, moderate (HCC); RODRIGUEZ (generalized anxiety disorder); Tourette syndrome Start: 10-21-2023 End: 10-21-2023 Patient encounter procedure Nikky Escobar MD Work Phone: [employer] Comment on above: Severe opioid use di sorder (HCC); Severe alcohol use disorder (HCC); Other usp (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 Start: 10-16-2023 End: 10-18-2023 Evaluation and management of inpatient Francisco Zee MD Work Phone: [facility] Acuity Adaptable Unit AAU 2 Comment on above: Acute recurrent panc reatitis (Primary Dx) Start: 10-16-2023 End: 10-16-2023 Emergency department patient visit Idris Danielson MD Work Phone: [facility] Emergency Dept Comment on above: Alcohol-induced acut e pancreatitis, unspecified complication status (Primary Dx) Start: 10-14-2023 End: 10-14-2023 Patient encounter procedure Nikky Escobar MD Work Phone: [facility] Comment on above: Severe opioid use di sorder (HCC); Severe alcohol use disorder (HCC); Major depressive disorder, recurrent episode, moderate (HCC); RODRIGUEZ (generalized anxiety disorder); Tourette syndrome Start: 10-07-2023 End: 10-07-2023 Telephone encounter Nikky Escobar MD Work Phone: [facility] Comment on above: Appointment (Pt woul d like to reschedule the appointment that is scheduled for 10/07/2023 at 2:30 pm.) Start: 10-01-2023 End: 11-12-2023 Telephone encounter Nikky Escobar MD Work Phone: [facility] [place] Comment on above: Medication Problem Start: 10-01-2023 End: 10-01-2023 Emergency department patient visit Bhupinder Boyd MD Work Phone: [facility] ED Comment on above: Alcohol-induced acut e pancreatitis, unspecified complication status (Primary Dx) Start: 09-23-2023 End: 09-23-2023 Office outpatient visit 15 minutes Nikky Escobar MD Work Phone: [facility] Comment on above: Severe opioid use di sorder (HCC); Motor tic disorder Start: 09-18-2023 End: 09-18-2023 ambulatory Sol Guo RN [facility] Clinical Communication Start: 09-18-2023 End: 09-18-2023 Patient encounter procedure Sol Guo RN [facility] Clinical Communication Start: 09-16-2023 End: 09-16-2023 Office outpatient visit 25 minutes Nikky Escobar MD Work Phone: [facility] Comment on above: Severe opioid use di sorder (HCC); Motor tic disorder; Major depressive disorder, recurrent episode, moderate (HCC); RODRIGUEZ (generalized anxiety disorder); Severe alcohol use disorder (HCC) Start: 09-09-2023 End: 09-09-2023 Patient encounter procedure Nikky Escobar MD Work Phone: [facility] [employer] [facility] Comment on above: Opioid withdrawal (H CC); Severe alcohol use disorder (HCC); Major depressive disorder, recurrent episode, moderate (HCC); RODRIGUEZ (generalized anxiety disorder); Motor tic disorder Start: 09-02-2023 End: 09-02-2023 Patient encounter procedure Nikky Escobar MD Work Phone: [facility] Comment on above: Severe opioid use di sorder (HCC); Major depressive disorder, recurrent episode, moderate (HCC); RODRIGUEZ (generalized anxiety disorder); Motor tic disorder Start: 08-26-2023 End: 08-26-2023 Telemedicine consultation with patient Nikky Escobar MD Work Phone: [facility] Comment on above: Anxiety; Palpitations; Opioid withdrawal (HCC) Start: 08-19-2023 End: 08-19-2023 Patient encounter procedure Nikky Escobar MD Work Phone: [facility] Comment on above: Severe opioid use di sorder (HCC); Motor tic disorder; RODRIGUEZ (generalized anxiety disorder); Major depressive disorder, recurrent episode, moderate (HCC) Start: 08-10-2023 End: 08-15-2023 Evaluation and management of inpatient Jossy Lynn MD Work Phone: [facility] Detox Unit 4E Comment on above: Alcohol withdrawal s yndrome without complication (HCC) (Primary Dx); Transaminitis; Alcohol abuse; Opioid withdrawal (HCC); Tourette syndrome Start: 07-25-2023 End: 07-29-2023 Refill Thiago Hilton DO Work Phone: [facility] Community Outreach Worker Comment on above: Opioid withdrawal (H CC) Start: 07-17-2023 Orders Only Thiago Hilton DO Work Phone: [facility] Community Outreach Worker Comment on above: Opioid withdrawal (H CC) Start: 07-16-2023 Telephone encounter Thiago salinas DO Work Phone: [facility] Comment on above: Med Refill (07/16/23 Pt calling for a refill medication pt is scheduled for appt on 07.22.23 buprenorphine-naloxone (Suboxone) 8-2 MG per sublingual film [facility] - [place], [place] - [address]) Start: 06-24-2023 End: 06-28-2023 Evaluation and management of inpatient Jossy Lynn MD Work Phone: [facility] Cardiac Post Intervention Progressive Care Unit CPI PCU 4W Comment on above: Opioid withdrawal (H CC) (Primary Dx); Alcohol use disorder; Hypoxia; Transaminitis; Anxiety Start: 06-15-2023 Telephone encounter Thiago salinas DO Work Phone: [facility] [facility] Comment on above: Appointment Request (/); Med Refill Start: 04-29-2023 End: 04-29-2023 Office outpatient visit 15 minutes Thiago M Lida [employer] Work Phone: [facility] Comment on above: Severe opioid use di sorder (HCC) Start: 03-18-2023 End: 03-18-2023 Office outpatient visit 15 minutes Thiago M Lida DO Work Phone: [facility] Comment on above: Severe opioid use di sorder (HCC) (Primary Dx); Palpitations Start: 03-01-2023 Refill Thiago Royal Hilton DO Work Phone: [facility] Comment on above: Opioid use disorder, severe, on maintenance therapy (HCC) (Primary Dx) Start: 01-08-2023 Orders Only Erin Arce MD Work Phone: [facility] Infectious Disease Comment on above: Encounter for testin g for latent tuberculosis (Primary Dx) Start: 01-07-2023 End: 01-07-2023 Office outpatient new 60 minutes Erin Arce MD Work Phone: [facility] Infectious Disease Comment on above: 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); Polysubstance use disorder; Panic disorder; Alcohol abuse; Tourette syndrome; SVT (supraventricular tachycardia); History of pancreatitis Start: 12-16-2022 End: 12-16-2022 Emergency department patient visit Duong Milian MD Work Phone: [facility] EMERGENCY DEPT Comment on above: 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) Start: 12-10-2022 End: 12-10-2022 Office outpatient visit 15 minutes Thiago M Lida DO Work Phone: [facility] Comment on above: Gastroesophageal ref lux disease without esophagitis (Primary Dx); Anxiety; Alcohol-induced insomnia (CMS/HCC) (HCC); Severe opioid use disorder (HCC) Start: 11-20-2022 End: 11-20-2022 ambulatory [facility] Facility:[facility] Start: 11-15-2022 ambulatory [facility]uli[facility] Ford [facility] Start: 11-15-2022 Patient encounter procedure Yuliya Ford RN [facility] Start: 11-14-2022 Telephone encounter Thiago M Jese salinas DO Work Phone: [facility] Comment on above: Med Change Request Start: 11-12-2022 End: 11-12-2022 Office outpatient visit 15 minutes Thiago Hilton DO Work Phone: [facility] Comment on above: Severe opioid use di sorder (HCC) (Primary Dx); Alcohol-induced insomnia (CMS/HCC) (HCC); Mild intermittent asthma without complication; Anxiety; Tourette syndrome; Severe alcohol use disorder (HCC); Encounter for smoking cessation counseling; Nausea Start: 11-03-2022 End: 11-08-2022 Evaluation and management of inpatient Bhupinder Boyd MD Work Phone: [facility] 4E DETOX Comment on above: Alcohol withdrawal s yndrome without complication (HCC) (Primary Dx); Polysubstance abuse (CMS/HCC) (HCC); Opioid use disorder Start: 08-10-2022 End: 08-10-2022 Emergency department patient visit Guillermo Perales MD Work Phone: [facility] Comment on above: Sprain of left knee, initial encounter (Primary Dx); Closed head injury, initial encounter Start: 07-10-2022 End: 07-11-2022 Evaluation and management of inpatient Shaan Ortiz DO Work Phone: [facility] Emergency Dept Comment on above: Alcohol abuse (Prima ry Dx) Start: 06-12-2022 End: 06-12-2022 Emergency department patient visit Neetu Jiméenz Work Phone: [facility] Comment on above: Acute gout of left f oot, unspecified cause (Primary Dx) Start: 05-25-2022 End: 05-25-2022 Emergency department patient visit Mary Hamlin MD Work Phone: [facility] EM[facility]ENCY [facility]PT Comment on above: Anxiety (Primary Dx) Start: 05-23-2022 End: 05-24-2022 Emergency department patient visit Mary Halmin MD Work Phone: [facility] Comment on above: Suicide attempt (HCC ) (Primary Dx) Start: 05-02-2022 End: 05-02-2022 Emergency department patient visit Neetu Jiménez Work Phone: [facility] Comment on above: Chest pain, unspecif ied type (Primary Dx); Anxiety attack Start: 03-15-2022 End: 03-19-2022 Evaluation and management of inpatient Josseline Weber MD Work Phone: [facility] 4E DETOX Comment on above: Alcohol withdrawal w ith inpatient treatment, uncomplicated (HCC) (Primary Dx) Start: 07-28-2019 End: 07-28-2019 Emergency department patient [facility] Comment on above: Dysuria (Primary Dx) Start: 06-06-2018 End: 06-08-2018 Evaluation and management of inpatient NEETU JIMÉNEZ [facility] Start: 06-02-2018 End: 06-03-2018 Patient encounter procedure PAOLA GALICIA [facility] Start: 03-29-2018 End: 03-30-2018 Evaluation and management of inpatient NEETU Chávez [facility] Start: 03-28-2018 End: 03-28-2018 Emergency department patient visit NEETU A [facility] Start: 03-13-2018 End: 03-13-2018 Emergency department patient visit NEETU Chávez [facility] Start: 10-27-2017 [facility] Start: 04-16-2017 End: 04-16-2017 Ambulatory [facility] Facility:[facility] Start: 10-03-2016 End: 10-04-2016 Ambulatory [facility] Facility:[facility] Procedures Date Procedure Procedure Detail Performing Clinician [...] Start: 2024 Assay of ferritin Spring Hartley NURSE HEALTHCARE MANAGER - TAPE RULES PRINTING MACHINE OPERATOR Work Phone: Start: 2024 Hepatitis b surf ant ibody hbsab Seema Hartley NURSE HEALTHCARE MANAGER - TAPE RULES PRINTING MACHINE OPERATOR Work Phone: Start: 2024 Iaad ia hepatitis b surface antigen Seema Hartley APRN - TAPE RULES PRINTING MACHINE OPERATOR Work Phone: Start: 08-24-2024 extraction, erupted tooth or exposed root (elevation and/or forceps removal) Lauren Alla [employer] [employer] Work Phone: Start: 08-24-2024 Follow-up visit AJAY OCHOA Start: 08-24-2024 intraoral - periapic al first radiographic image Lauren K [employer] Work Phone: Start: 08-24-2024 panoramic radiograph ic image Lauren K [employer] Work Phone: Start: 08-23-2024 Follow-up visit AJAY [...] Start: 04-16-2024 Drug test def 1-7 classes Adrain Silva MD Work Phone: Start: 04-16-2024 SARS-CoV-2 [...] 03-22-2024 Comprehensive metabo lic panel Blayne Duran NURSE HEALTHCARE MANAGER - TAPE RULES PRINTING MACHINE OPERATOR Work Phone: Start: 02-05-2024 Basic metabolic pane [...] ETHYL GLUCURONIDE SC REEN, URINE Britney Spencehoa NURSE HEALTHCARE MANAGER - TAPE RULES PRINTING MACHINE OPERATOR Work Phone: Start: 01-21-2024 MEDICATION ASSISTED TREATMENT PANEL Britney Spencehoa NURSE HEALTHCARE MANAGER - TAPE RULES PRINTING MACHINE OPERATOR Work Phone: Start: 01-21-2024 Basic metabolic pane l calcium total Latonya Larose MD Work Phone: Start: 01-21-2024 Drug test def 1-7 classes Britney Spencehoa NURSE HEALTHCARE MANAGER - TAPE RULES PRINTING MACHINE OPERATOR Work Phone: Start: 01-20-2024 Ct abdomen & [...] Start: 11-25-2023 Comprehensive metabo lic panel Linda Kohlre MD Work Phone: Start: 11-25-2023 Manual differential [...] Phone: Start: 11-20-2023 Ct angiography chest w/contrast/noncontrast Linad Kohler MD Work Phone: Start: 11-20-2023 Assay [...] complete panel - Urine Tana [facility] Work Phone: Start: 08-11-2023 Urnls dip stick/tabl et rgnt auto w/o microscopy Tana Christensen PA-C Work Phone: Start: 08-10-2023 Blood gases any combination ph pco2 po2 co2 hco3 Kev Tinojeremiah [facility] Work Phone: Start: 08-10-2023 SARS-CoV-2 (COVID-19 ) Ag [Presence] in Respiratory specimen by Rapid immunoassay Tana [facility] Work Phone: Start: 08-10-2023 Comprehensive metabo lic [...] Start: 06-24-2023 BUPRENORPHINE SCREEN Ri ryanne Perea NURSE HEALTHCARE MANAGER - TAPE RULES PRINTING MACHINE OPERATOR Work Phone: Start: 06-24-2023 SARS-CoV-2 (COVID-19 ) [...] metabolic pane l calcium total Blayne Duran NURSE HEALTHCARE MANAGER - TAPE RULES PRINTING MACHINE OPERATOR Work Phone: Start: 05-02-2022 Radiologic exam ches t 2 views Blayne Duran NURSE HEALTHCARE MANAGER - TAPE RULES PRINTING MACHINE OPERATOR Work Phone: Start: 05-02-2022 Ecg routine ecg w/le ast 12 lds trcg only w/o i&r Blayne Duran NURSE HEALTHCARE MANAGER - TAPE RULES PRINTING MACHINE OPERATOR Work Phone: Start: 03-18-2022 Comprehensive metabo lic [...] NEETU TINO Start: 06-06-2018 IP CONSULT TO PSYCHODRAMATIST AL MEDICINE NEETU TINO Start: 06-06-2018 Ct [...] for Adults (1 - 1-dose 75+ series) [facility] Start: 2046 RSV Immunization aged 60 or older (1 - 1-dose 60+ series) RSV Immunization aged 60 or older (1 - 1-dose 60+ series) [facility] Start: 2046 [facility] Start: 2036 Zoster Vaccines (1 of 2) Zoster Vaccines (1 of 2) [facility] Start: 2036 [facility] Start: 08-10-2032 DTaP/Tdap/Td Vaccines (3 - Td or Tdap) DTaP/Tdap/Td Vaccines (3 - Td or Tdap) [facility] Start: 08-10-2032 [facility] Start: 10-21-2028 Lipid panel [facility] Start: 04-07-2025 Dental Oral Exam Dental Oral Exam [facility] Start: 01-19-2025 End: 01-19-2025 Patient encounter procedure 01/19/2025 2:00 PM EST Office Visit [facility] [address] [place] [id number] James Mcneill, MAURO [address] [place] [address] [facility] Start: 12-14-2024 End: 12-14-2024 Patient encounter procedure 12/14/2024 1:00 PM EST Office Visit [facility] [address] [place] [phone] Lauren Perez, DDS [address] [place] [address] [facility] Start: 12-08-2024 End: 12-08-2024 Admission to same day surgery center 12/08/2024 1:15 PM EDT - 12/08/2024 1:45 PM EDT [facility] [address] [place] [id number] Sonya Cramer MD [address] [place] [address] ESOPHAGOGASTRODUODENOSCO PY, WITH BIOPSY [56667 (CPT )] [facility] Comment on above: ESOPHAGOGASTRODUODENOSCOPY, WITH BIOPSY [[id number] (CPT )] Start: 12-08-2024 Subsequent hospital visit by physician 12/08/2024 1:15 PM EDT Hospital Encounter [facility] [address] [place] [phone] Sonya Cramer MD [address] [place] [address] [facility] Start: 12-08-2024 End: 12-08-2024 Egd transoral biopsy single/multiple [facility] Start: 12-01-2024 Patient discharge [facility] Start: 11-30-2024 Following clinical pathway protocol [facility] Start: 11-30-2024 Admission procedure [facility] Start: 11-30-2024 Patient referral to dietitian [facility] Start: 11-30-2024 [facility] Start: 11-21-2024 End: 11-21-2024 Patient encounter procedure 11/21/2024 2:30 PM EDT Office Visit [facility] [address] [place] [phone] Guillermo Mon PA-C [address] [address] [facility] Start: 11-15-2024 End: 11-15-2024 Patient encounter procedure [facility] Start: 11-10-2024 End: 11-10-2025 Hepatitis A virus IgM Ab [Presence] in Serum or Plasma by Immunoassay Hepatitis A antibody, IgM Lab Routine Elevated liver enzymes Expected: 11/10/2024 (Approximate), Expires: 11/10/2025 [facility] [employer] Work Phone: Comment on above: Expected: 11/10/2024 (Approximate), Expi res: 11/10/2025 Start: 11-01-2024 End: 11-01-2025 AFP Tumor Marker AFP Tumor Marker Lab Routine Alcoholic cirrhosis of liver without ascites (CMS/HCC) (HCC) Expected: 11/01/2024 (Approximate), Expires: 11/01/2025 [facility] Work Phone: Comment on above: Expected: 11/01/2024 (Approximate), Expi res: 11/01/2025 Start: 11-01-2024 End: 11-01-2025 Ceruloplasmin Ceruloplasmin Lab Routine Elevated liver enzymes Expected: 11/01/2024 (Approximate), Expires: 11/01/2025 [facility] [employer] Comment on above: Expected: 11/01/2024 (Approximate), Expi res: 11/01/2025 Start: 11-01-2024 End: 11-01-2025 Comprehensive metabolic 1998 panel - Serum or Plasma Comprehensive metabolic panel Lab Routine Alcoholic cirrhosis of liver without ascites (CMS/HCC) (HCC) Expected: 11/01/2024 (Approximate), Expires: 11/01/2025 [facility] [employer] Comment on above: Expected: 11/01/2024 (Approximate), Expi res: 11/01/2025 Start: 11-01-2024 End: 11-01-2025 Hepatitis A Antibody, Total Hepatitis A Antibody, Total Lab Routine Alcoholic cirrhosis of liver without ascites (CMS/HCC) (HCC) Expected: 11/01/2024 (Approximate), Expires: 11/01/2025 [facility] Comment on above: Expected: 11/01/2024 (Approximate), Expi res: 11/01/2025 Start: 11-01-2024 End: 11-01-2025 Prothrombin time (PT) in Blood by Coagulation assay Protime-INR Lab Routine Alcoholic cirrhosis of liver without ascites (CMS/HCC) (HCC) Expected: 11/01/2024 (Approximate), Expires: 11/01/2025 [facility] Comment on above: Expected: 11/01/2024 (Approximate), Expi res: 11/01/2025 Start: 11-01-2024 End: 11-01-2024 Patient encounter procedure 11/01/2024 9:00 AM EDT Office Visit [facility] [address] [place] [phone] Guillermo Mon PA-C [address] [place] [phone] [facility] Start: 10-10-2024 COVID-19 Vaccine ( season) COVID-19 Vaccine ( season) [facility] Start: 10-10-2024 Influenza vaccination [facility] Start: 10-05-2024 End: 10-05-2024 Patient encounter procedure 10/05/2024 2:00 PM EDT Office Visit [facility] [address] [place] [phone] Seema Hartley, NURSE HEALTHCARE MANAGER - TAPE RULES PRINTING MACHINE OPERATOR [address] [facility] [address] [place] [address] [phone] [facility] Start: 10-04-2024 End: 10-04-2024 Patient encounter procedure 10/04/2024 4:00 PM EDT Office Visit [facility] [address] [place] [phone] Lauren Perez, DDS [address] [place] [address] [facility] Start: 10-03-2024 End: 10-03-2025 Comprehensive metabolic 1998 panel - Serum or Plasma Comprehensive metabolic panel Lab Routine Elevated liver enzymes Expected: 10/03/2024 (Approximate), Expires: 10/03/2025 [facility] Work Phone: Comment on above: Expected: 10/03/2024 (Approximate), Expi res: 10/03/2025 Start: 09-22-2024 End: 09-22-2024 Clinical Support 09/22/2024 2:30 PM EDT Clinical Support [facility] [place] [address] [place] [phone] [facility] [place] Start: 09-07-2024 End: 09-07-2024 Patient encounter procedure 09/07/2024 2:00 PM EDT Office Visit [facility] [address] [place] [phone] Lauren Perez, DDS [address] [place] [address] [facility] Start: 08-24-2024 End: 08-24-2024 Patient encounter procedure [facility] Start: 08-23-2024 End: 08-23-2025 [id number], Quantitative [id number], Quantitative Lab Routine Elevated liver enzymes Expected: 08/23/2024 (Approximate), Expires: 08/23/2025 [facility] Comment on above: Expected: 08/23/2024 (Approximate), Expi res: 08/23/2025 Start: 08-23-2024 End: 08-23-2025 Antimitochondrial antibody Antimitochondrial antibody Lab Routine Elevated liver enzymes Expected: 08/23/2024 (Approximate), Expires: 08/23/2025 [facility] Work Phone: Comment on above: Expected: 08/23/2024 (Approximate), Expi res: 08/23/2025 Start: 08-23-2024 End: 08-23-2025 CELIAC PANEL Celiac Panel Lab Routine Elevated liver enzymes Expected: 08/23/2024 (Approximate), Expires: 08/23/2025 [facility] Comment on above: Expected: 08/23/2024 (Approximate), Expi res: 08/23/2025 Start: 08-23-2024 End: 08-23-2025 Ferritin [Mass/volume] in Serum or Plasma Ferritin Lab Routine Elevated liver enzymes Expected: 08/23/2024 (Approximate), Expires: 08/23/2025 [facility] Comment on above: Expected: 08/23/2024 (Approximate), Expi res: 08/23/2025 Start: 08-23-2024 End: 08-23-2025 Hepatitis B Core Antibody, Total Hepatitis B Core Antibody, Total Lab Routine Elevated liver enzymes Expected: 08/23/2024 (Approximate), Expires: 08/23/2025 [facility] Comment on above: Expected: 08/23/2024 (Approximate), Expi res: 08/23/2025 Start: 08-23-2024 End: 08-23-2025 Hepatitis B virus surface Ab [Units/volume] in Serum or Plasma by Immunoassay Hepatitis B surface antibody Lab Routine Elevated liver enzymes Expected: 08/23/2024 (Approximate), Expires: 08/23/2025 [facility] Comment on above: Expected: 08/23/2024 (Approximate), Expi res: 08/23/2025 Start: 08-23-2024 End: 08-23-2025 Hepatitis B virus surface Ag [Presence] in Serum or Plasma by Immunoassay Hepatitis B surface antigen Lab Routine Elevated liver enzymes Expected: 08/23/2024 (Approximate), Expires: 08/23/2025 [facility] Comment on above: Expected: 08/23/2024 (Approximate), Expi res: 08/23/2025 Start: 08-23-2024 End: 08-23-2025 Hepatitis C virus Ab [Presence] in Serum or Plasma by Immunoassay Hepatitis C antibody Lab Routine Elevated liver enzymes Expected: 08/23/2024 (Approximate), Expires: 08/23/2025 [facility] Comment on above: Expected: 08/23/2024 (Approximate), Expi res: 08/23/2025 Start: 08-23-2024 End: 08-23-2025 Liver elastography w/o imag w/i&r Fibroscan Procedures Routine Elevated liver enzymes Expected: 08/23/2024, Expires: 08/23/2025 [facility] [employer] Comment on above: Expected: 08/23/2024, Expires: Start: 08-23-2024 End: 08-23-2025 Liver-Kidney Microsome 1 Ab Liver-Kidney Microsome 1 Ab Lab Routine Elevated liver enzymes Expected: 08/23/2024 (Approximate), Expires: 08/23/2025 [facility] [employer] Comment on above: Expected: 08/23/2024 (Approximate), Expi res: 08/23/2025 Start: 08-23-2024 End: 08-23-2025 Nuclear Ab [Titer] in Serum by Immunofluorescence [place] Lab Routine Elevated liver enzymes Expected: 08/23/2024 (Approximate), Expires: 08/23/2025 [facility] [employer] Comment on above: Expected: 08/23/2024 (Approximate), Expi res: 08/23/2025 Start: 08-23-2024 End: 08-23-2025 Prothrombin time (PT) in Blood by Coagulation assay Protime-INR Lab Routine Elevated liver enzymes Expected: 08/23/2024 (Approximate), Expires: 08/23/2025 [facility] [employer] Comment on above: Expected: 08/23/2024 (Approximate), Expi res: 08/23/2025 Start: 08-23-2024 End: 08-23-2025 Smooth muscle antibody with reflex Titer Smooth muscle antibody with reflex Titer Lab Routine Elevated liver enzymes Expected: 08/23/2024 (Approximate), Expires: 08/23/2025 [facility] [employer] Comment on above: Expected: 08/23/2024 (Approximate), Expi res: 08/23/2025 Start: 08-09-2024 End: 08-09-2024 Patient encounter procedure 08/09/2024 10:30 AM EDT Office Visit [facility] [address] [place] [phone] [facility] Start: 08-05-2024 Depression Monitoring Depression Monitoring [facility] Start: 07-25-2024 End: 07-25-2024 Patient encounter procedure 07/25/2024 2:30 PM EDT Office Visit [facility] [place] [address] [place] [phone] Seema Hartley, NURSE HEALTHCARE MANAGER - T[employer] RUL[employer] PRINTING MACHINE OPERATOR [address] [place] [address] [facility] [place] Start: 06-24-2024 Diabetes mellitus screening [facility] Start: 06-20-2024 End: 06-20-2024 Patient encounter procedure 06/20/2024 1:45 PM EDT Appointment [facility] [address] [place] [phone] Seema Hartley, NURSE HEALTHCARE MANAGER - T[employer] RUL[employer] PRINTING MACHINE OPERATOR [address] [place] [address] [facility] Start: 06-20-2024 Subsequent hospital visit by physician 06/20/2024 1:45 PM EDT Hospital Encounter [facility] [address] [place] [phone] Seema Hartley, NURSE HEALTHCARE MANAGER - TAPE RUL[employer] PRINTING MACHINE OPERATOR [address] [place] [address] [facility] Start: 06-12-2024 Depression Monitoring Depression Monitoring [facility] Start: 06-01-2024 End: 06-01-2025 Calcium [Mass/volume] in Serum or Plasma Calcium Lab Routine Acute on chronic pancreatitis (CMS/HCC) (HCC) Expected: 06/01/2024 (Approximate), Expires: 06/01/2025 [facility] Comment on above: Expected: 06/01/2024 (Approximate), Expi res: 06/01/2025 Start: 06-01-2024 End: 06-01-2025 IgG 4 IgG 4 Lab Routine Acute on chronic pancreatitis (CMS/HCC) (HCC) Expected: 06/01/2024 (Approximate), Expires: 06/01/2025 [facility] Work Phone: Comment on above: Expected: 06/01/2024 (Approximate), Expi res: 06/01/2025 Start: 06-01-2024 End: 06-01-2025 MR Abdomen WO and W contrast IV MR abdomen w and wo contrast Imaging Routine Acute on chronic pancreatitis (CMS/HCC) (HCC) Expected: 06/01/2024, Expires: 06/01/2025 [facility] Comment on above: Expected: 06/01/2024, Expires: Start: 06-01-2024 End: 06-01-2025 Triglyceride [Mass/volume] in Serum or Plasma Triglyceride Lab Routine Acute on chronic pancreatitis (CMS/HCC) (HCC) Expected: 06/01/2024 (Approximate), Expires: 06/01/2025 [facility] Comment on above: Expected: 06/01/2024 (Approximate), Expi res: 06/01/2025 Start: 04-27-2024 End: 04-27-2024 Patient encounter procedure 04/27/2024 1:30 PM EDT Office Visit [facility] [place] [address] [place] [address] Nikky Escobar MD [address] [place], [place] [phone] [facility] [place] Start: 04-04-2024 End: 04-04-2024 Patient encounter procedure 04/04/2024 3:00 PM EST Office Visit [facility] [address] [place] [phone] [facility] Start: 02-11-2024 Depression Monitoring Depression Monitoring [facility] Start: 02-11-2024 [facility] Start: 12-27-2023 Depression Monitoring Depression Monitoring [facility] Start: 12-16-2023 End: 12-16-2023 ambulatory [facility] [place] Start: 12-16-2023 End: 12-16-2023 Patient encounter procedure 12/16/2023 3:00 PM EST Office Visit [facility] [place] [address] [place] [address] Nikky Escobar MD [address] [place] [address] [facility] [place] Start: 12-02-2023 End: 12-02-2023 Patient encounter procedure 12/02/2023 1:30 PM EDT Office Visit [facility] [place] [address] [place] [address] Nikky Escobar MD [address] [place] [address] [facility] [place] Start: 11-25-2023 End: 11-25-2023 Patient encounter procedure 11/25/2023 1:00 PM EDT Office Visit [facility] [place] [address] [place] [phone] Nikky Escobar MD [address] [place] [address] [facility] [place] Start: 11-18-2023 End: 11-18-2023 Patient encounter procedure 11/18/2023 1:00 PM EDT Office Visit [facility] [place] [address] [place] [address] Nikky Escobar MD [address] [place] [address] [facility] Start: 10-21-2023 End: 10-21-2023 Patient encounter procedure 10/21/2023 3:00 PM EDT Office Visit [facility] [address] [place] [address] Nikky Escobar MD [address] [place] [address] [facility] Start: 10-14-2023 End: 10-14-2023 Patient encounter procedure 10/14/2023 2:30 PM EDT Office Visit [facility] [address] [place] [phone] Nikky Escobar MD [address] [place] [address] [facility] Start: 10-11-2023 COVID-19 Vaccine () COVID-19 Vaccine () [facility] Start: 10-11-2023 COVID-19 Vaccine () COVID-19 Vaccine () [facility] Start: 10-11-2023 Influenza vaccination [facility] Start: 10-11-2023 [facility] Start: 10-07-2023 End: 10-07-2023 Patient encounter procedure 10/07/2023 2:30 PM EDT Office Visit [place] [facility] [address] [place] [phone] Nikky Escobar MD [address] [place] [address] [facility] Start: 09-23-2023 End: 09-23-2023 Patient encounter procedure 09/23/2023 2:30 PM EDT Office Visit [facility] [address] [place] [phone] Nikky Escobar MD [address] [place] [address] [facility] Start: 09-16-2023 End: 09-16-2023 Patient encounter procedure 09/16/2023 2:30 PM EDT Office Visit [facility] [address] [place] [phone] Nikky Escobar MD [address] [place] [address] [facility] Start: 09-16-2023 End: 09-15-2024 MEDICATION ASSISTED TREATMENT PANEL MEDICATION ASSISTED TREATMENT PANEL Lab Routine Severe opioid use disorder (HCC) Expected: 09/16/2023 (Approximate), Expires: 09/15/2024 [facility] Work Phone: Comment on above: Expected: 09/16/2023 (Approximate), Expi res: 09/15/2024 Start: 09-09-2023 End: 09-09-2023 Patient encounter procedure 09/09/2023 2:30 PM EDT Office Visit [facility] [address] [place] [address] Nikky Escobar MD [address] [place], [place] [phone] [facility] Start: 09-09-2023 End: 09-08-2024 CBC panel - Blood by Automated count CBC Lab Routine Severe alcohol use disorder (HCC) Expected: 09/09/2023 (Approximate), Expires: 09/08/2024 [facility] Comment on above: Expected: 09/09/2023 (Approximate), Expi res: 09/08/2024 Start: 09-09-2023 End: 09-08-2024 Comprehensive metabolic 1998 panel - Serum or Plasma Comprehensive metabolic panel Lab Routine Severe alcohol use disorder (HCC) Expected: 09/09/2023 (Approximate), Expires: 09/08/2024 [facility] Work Phone: Comment on above: Expected: 09/09/2023 (Approximate), Expi res: 09/08/2024 Start: 09-02-2023 End: 09-02-2023 Patient encounter procedure 09/02/2023 2:30 PM EDT Office Visit [facility] [address] [place] [address] Nikky Escobar MD [address] [place], [place] [phone] [facility] Start: 09-02-2023 End: 09-01-2024 MEDICATION ASSISTED TREATMENT PANEL MEDICATION ASSISTED TREATMENT PANEL Lab Routine Severe opioid use disorder (HCC) Expected: 09/02/2023 (Approximate), Expires: 09/01/2024 [facility] Work Phone: Comment on above: Expected: 09/02/2023 (Approximate), Expi res: 09/01/2024 Start: 08-26-2023 End: 08-25-2024 Buprenorphine and Metab, Urine, Quant Buprenorphine and Metab, Urine, Quant Lab Routine Opioid withdrawal (HCC) Expected: 08/26/2023 (Approximate), Expires: 08/25/2024 [facility] [employer] [facility] Work Phone: Comment on above: Expected: 08/26/2023 (Approximate), Expi res: 08/25/2024 Start: 08-26-2023 End: 08-25-2024 BUPRENORPHINE SCREEN BUPRENORPHINE SCREEN Lab Routine Opioid withdrawal (HCC) Expected: 08/26/2023 (Approximate), Expires: 08/25/2024 [employer] Comment on above: Expected: 08/26/2023 (Approximate), Expi res: 08/25/2024 Start: 08-26-2023 End: 08-25-2024 DRUG MONITOR, FENTANYL, SCREEN, URINE ([facility]) Drug Monitor, Fentanyl, Screen, Urine ([facility]) Lab Routine Opioid withdrawal (HCC) Expected: 08/26/2023 (Approximate), Expires: 08/25/2024 [facility] [employer] Comment on above: Expected: 08/26/2023 (Approximate), Expi res: 08/25/2024 Start: 08-26-2023 End: 08-25-2024 DRUG TOX MONITORING 4 SCREEN, URINE ([facility]) Drug Tox Monitoring 4 Screen, Urine ([facility]) Lab Routine Opioid withdrawal (HCC) Expected: 08/26/2023 (Approximate), Expires: 08/25/2024 [facility] [employer] Comment on above: Expected: 08/26/2023 (Approximate), Expi res: 08/25/2024 Start: 08-26-2023 End: 08-25-2024 Ethanol, urine Ethanol, urine Lab Routine Opioid withdrawal (HCC) Expected: 08/26/2023 (Approximate), Expires: 08/25/2024 [facility] Comment on above: Expected: 08/26/2023 (Approximate), Expi res: 08/25/2024 Start: 08-19-2023 End: 08-19-2023 Patient encounter procedure 08/19/2023 3:00 PM EDT Office Visit [facility] [address] [place] [address] Nikky Escobar MD [address] [place] [address] [facility] Start: 07-22-2023 End: 07-22-2023 Patient encounter procedure 07/22/2023 3:00 PM EDT Office Visit [facility] [address] [place] [address] Thiago Hilton DO [address] [place] [address] [facility] Start: 07-01-2023 End: 07-01-2023 Patient encounter procedure 07/01/2023 1:30 PM EDT Office Visit [facility] [address] [place] [address] Thiago Hilton DO [address] [place] [address] [facility] Start: 05-05-2023 Depression Monitoring Depression Monitoring [facility] Start: 05-05-2023 Depresssion Monitoring Depresssion Monitoring [facility] Start: 04-08-2023 End: 04-08-2023 Telemedicine consultation with patient 04/08/2023 3:30 PM EST Telemedicine [facility] [address] [place] [phone] Thiago Hilton DO [address] [place] [address] [facility] Start: 03-12-2023 End: 01-09-2024 QUANTIFERON TB GOLD QUANTIFERON TB GOLD Lab Routine Encounter for testing for latent tuberculosis Expected: 03/12/2023 (Approximate), Expires: 01/09/2024 [facility] Work Phone: Comment on above: Expected: 03/12/2023 (Approximate), Expi res: 01/09/2024 Start: 03-11-2023 End: 03-11-2023 Patient encounter procedure 03/11/2023 3:00 PM EST Office Visit [place] [address] [place] [phone] Thiago Hilton DO [address] [place] [address] [facility] Start: 12-10-2022 End: 12-10-2022 Patient encounter procedure 12/10/2022 2:30 PM EDT Office Visit [facility] [address] [place] [address] Thiago Hilton DO [address] [place] [address] [facility] Start: 11-12-2022 End: 11-12-2022 Patient encounter procedure 11/12/2022 3:45 PM EDT Office Visit [facility] [address] [place] [address] Thiago Hilton DO [address] [place] [address] [facility] Start: 10-10-2022 COVID-19 Vaccine ( season) COVID-19 Vaccine ( season) [facility] Start: 10-10-2022 Influenza vaccination Influenza Vaccine (#1) [facility] Start: 02-22-2021 COVID-19 Vaccine (3 - Booster for Pfizer series) COVID-19 Vaccine (3 - Booster for Pfizer series) [facility] Start: 02-22-2021 COVID-19 Vaccine (3 - Pfizer series) COVID-19 Vaccine (3 - Pfizer series) [facility] Start: 10-11-2019 Influenza vaccination Flu vaccine (Season Ended) [place], [place] Start: 2005 DTaP/Tdap/Td vaccine (1 - Tdap) DTaP/Tdap/Td vaccine (1 - Tdap) [place] Start: 2005 Hepatitis A Vaccines (1 of 2 - Risk 2-dose series) Hepatitis A Vaccines (1 of 2 - Risk 2-dose series) [facility] Start: 2005 Pneumococcal Vaccine: Pediatrics (0 to 5 Years) and At-Risk Patients (6 to 49 Years) (1 of 2 - PCV) Pneumococcal Vaccine: Pediatrics (0 to 5 Years) and At-Risk Patients (6 to 49 Years) (1 of 2 - PCV) [facility] Start: 2005 [facility] Start: 2004 Diabetes mellitus screening Diabetes Screening [facility] Start: 2004 Hepatitis C screening Hepatitis C Screening [facility] Start: 2001 HIV screening HIV screen [place], [place] Start: 11-06-1999 Hepatitis B Vaccines (2 of 3 - 3-dose series) Hepatitis B Vaccines (2 of 3 - 3-dose series) [facility] Start: 11-06-1999 Varicella vaccination [facility] Start: 11-06-1999 [facility] Start: 10-10-1999 DTaP/Tdap/Td Vaccines (2 - Tdap) DTaP/Tdap/Td Vaccines (2 - Tdap) [facility] Start: 1998 Depression Screening Depression Screening [facility] Start: 1992 Pneumococcal 0-64 years Vaccine (1 of 1 - PPSV23) Pneumococcal 0-64 years Vaccine (1 of 1 - PPSV23) [place], [place] Start: 1992 Pneumococcal Vaccine: Pediatrics (0 to 5 Years) and At-Risk Patients (6 to 64 Years) (1 - PCV) Pneumococcal Vaccine: Pediatrics (0 to 5 Years) and At-Risk Patients (6 to 64 Years) (1 - PCV) [facility] Start: 1992 Pneumococcal Vaccine: Pediatrics (0 to 5 Years) and At-Risk Patients (6 to 64 Years) (1 of 2 - PCV) Pneumococcal Vaccine: Pediatrics (0 to 5 Years) and At-Risk Patients (6 to 64 Years) (1 of 2 - PCV) [facility] Start: 1992 [facility] Start: 10-01-1987 Hepatitis A Vaccines (1 of 2 - Risk 2-dose series) Hepatitis A Vaccines (1 of 2 - Risk 2-dose series) [facility] Start: 10-01-1987 Varicella vaccine (1 of 2 - 2-dose childhood series) Varicella vaccine (1 of 2 - 2-dose childhood series) [place], [place] Start: 1986 Dental Oral Exam Dental Oral Exam [facility] Start: 1985 Dental X-ray bitewing Dental X-Ray: Bitewings [facility] Start: 1986 HIV screening HIV Screening [facility] Start: 1986 Lipid panel Lipid Panel [facility] Start: 1986 Preventive periodontal procedure, periodontal prophylaxis Dental Prophylaxis [facility] Abjdb-7-[id number], Quantitative Clkep-4-Moqxmrnallg, Quantitative Lab Routine Elevated liver enzymes 2024 3:01 PM EDT [facility] Antimitochondrial antibody Antimitochondrial antibody Lab Routine Elevated liver enzymes 2024 3:01 PM EDT [facility] End: 07-28-2019 C. Trachomatis / N. Gonorrhoeae, DNA C. Trachomatis / N. Gonorrhoeae, DNA Microbiology STAT One Time for 1 Occurrences starting 07/28/2019 until 07/28/2019 [place], [place] Comment on above: One Time for 1 Occurrences starting 07/10 until 07/28/2019 C. Trachomatis / N. Gonorrhoeae, DNA C. Trachomatis / N. Gonorrhoeae, DNA Microbiology STAT 07/28/2019 6:53 PM EDT [place] CELIAC PANEL Celiac Panel Lab Routine Elevated liver enzymes 2024 3:01 PM EDT [facility] Celiac Panel Celiac Panel Lab Routine Elevated liver enzymes 2024 3:01 PM EDT [facility] complete denture - maxillary Max Max WV COMPLETE DENTURE - MAXILLARY Dental Routine 1 Occurrences starting 10/04/2024 [facility] Comment on above: 1 Occurrences starting 10/04/2024 comprehensive oral evaluation - new or established patient [place] COMPREHENSIVE ORAL EVALUATION - NEW OR ESTABLISHED PATIENT Dental Routine 1 Occurrences starting 08/24/2024 [employer] Work Phone: Comment on above: 1 Occurrences starting 08/24/2024 ECG 12 lead ECG 12 lead CV E CG STAT 05/24/2022 6:44 AM EDT [employer] Work Phone: extraction, erupted tooth or exposed root (elevation and/or forceps removal) [employer] Work Phone: Comment on above: 1 Occurrences starting 10/04/2024 Hepatitis B Core Antibody, Total Hepatitis B Core Antibody, Total Lab Routine Elevated liver enzymes 2024 3:01 PM EDT [employer] INR in Blood by Coagulation assay POCT INR manually resulted Point of Care Testing Routine Severe alcohol use disorder (HCC) Ordered: 09/09/2023 [employer] Comment on above: Ordered: 09/09/2023 Liver-Kidney Microso me 1 Ab Liver-Kidney Microsome 1 Ab Lab Routine Elevated liver enzymes 2024 3:01 PM EDT [facility] mandibular partial denture - cast metal framework with resin denture bases (including any conventional clasps, rests and teeth) 23,24,25,26,29,30,31,21, 19,18 23,24,25,26,29,30,31,21, 19,18 [place] MANDIBULAR PARTIAL DENTURE - CAST METAL FRAMEWORK WITH RESIN DENTURE BASES (INCLUDING RETENTIVE/CLASPING MATERIALS, RESTS AND TEETH) Dental Routine 1 Occurrences starting 10/04/2024 [employer] Comment on above: 1 Occurrences starting 10/04/2024 End: 06-20-2024 MR Abdomen WO and W contrast IV [facility] Work Phone: Comment on above: Once for 1 Occurrences starting 06/21/19 until 06/20/2024 NC VISIT PART OF MULTI-VISIT PROCEDURE NC VISIT PART OF MULTI-VISIT PROCEDURE Dental Routine 1 Occurrences starting 11/15/2024 [employer] Work Phone: Comment on above: 1 Occurrences starting 11/15/2024 Nuclear Ab [Titer] i n Serum by Immunofluorescence [facility] Lab Routine Elevated liver enzymes 2024 3:01 PM EDT [employer] W[place] REMOVAL OF TORUS MANDIBULARIS WV REMOVAL OF TORUS MANDIBULARIS Dental Routine 1 Occurrences starting 10/04/2024 [facility] Comment on above: 1 Occurrences starting 10/04/2024 QUANTIFERON - PLUS G RAY TUBE QUANTIFERON - PLUS FRANCO TUBE Lab STAT Positive 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 01/07/2023 8:58 AM EST [facility] [employer] QUANTIFERON - PLUS G REEN TUBE QUANTIFERON - PLUS GREEN TUBE Lab STAT Positive 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 01/07/2023 8:58 AM EST [employer] QUANTIFERON - PLUS P URPLE TUBE QUANTIFERON - PLUS PURPLE TUBE Lab STAT Positive 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 01/07/2023 8:58 AM EST [facility] [employer] QUANTIFERON - PLUS Y ELLOW TUBE QUANTIFERON - PLUS YELLOW TUBE Lab STAT Positive 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 01/07/2023 8:58 AM EST [facility] QUANTIFERON TB GOLD QUANTIFERON TB GOLD Lab STAT Positive 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 01/07/2023 8:58 AM EST [facility] [employer] Work Phone: resin-based composit e - one surface, anterior 22 I 22 I WV RESIN-BASED COMPOSITE - ONE SURFACE, ANTERIOR Dental Routine 1 Occurrences starting 10/04/2024 [facility] [employer] Comment on above: 1 Occurrences starting 10/04/2024 resin-based composit e - one surface, posterior [facility] Comment on above: 1 Occurrences starting 10/04/2024 resin-based composit e - three surfaces, anterior 27 MID 27 MID WV RESIN-BASED COMPOSITE - THREE SURFACES, ANTERIOR Dental Routine 1 Occurrences starting 10/04/2024 [facility] [employer] Comment on above: 1 Occurrences starting 10/04/2024 Smooth muscle antibo dy with reflex Titer Smooth muscle antibody with reflex Titer Lab Routine Elevated liver enzymes 2024 3:01 PM EDT [facility] Immunizations Immunization Date Immunization Notes Care Provider Fa [facility] 08-10-2022 tetanus toxoid, reduced diphtheria toxoid, and acellular pertussis vaccine, adsorbed Guillermo Perales MD Work Phone: [facility] [employer] 03-17-2022 Influenza, injectable, Madin Laurence Canine Kidney, preservative free, quadrivalent [place] Work Phone: [facility] 03-17-2022 influenza virus vaccine, unspecified formulation Guillermo Perales MD Work Phone: [facility] 12-28-2020 Covid (Pfizer) No Primary Ca re Physician [facility] 12-07-2020 Covid (Pfizer) No Primary Ca re Physician [facility] 10-09-1999 hepatitis B vaccine, pediatric or pediatric/adolescent dosage Bhupinder Boyd MD Work Phone: [facility] 10-09-1999 measles, mumps and rubella virus vaccine Bhupinder Boyd MD Work Phone: [facility] 10-09-1999 TD(adult) unspecifie d formulation Bhupinder Boyd MD Work Phone: [facility] [employer] NEGATED: Highlighted row has not occurred!02-06-2024 influenza, injectable, madin laurence canine kidney, preservative free Francisco Landa MD Work Phone: [facility] [employer] Comment on above: Deferred: Patient Re fused - states received one this season. refused NEGATED: Highlighted row has not occurred!01-25-2024 influenza, injectable, madin laurence canine kidney, preservative free Calvin Stephens MD Work Phone: [facility] [employer] Comment on above: Deferred: Patient Re fused NEGATED: Highlighted row has not occurred!03-30-2018 Influenza, Quadv, 6 mo and older, IM, PF (Flulaval, Fluarix) [facility], [place] Payers Date Payer Category Payer Self-pay 2022 Unknown [id number] 2021 Medicaid - Dental [place] [employer] DENTAL [id number] 2021 Medicaid HMO [id number] 2019 Medicaid [id number] 2018 Medicaid [id number] 2018 Unknown [facility] xxxxxxxxxxxx 2018-Present [phone] [address] [place] [address] xxxxxxxxxxxx [id number] 1986 Unknown [id number] 4 1986 Unknown [id number] 4 1986 Unknown [id number] 4 1986 Unknown [id number] 4 1986 Unknown [id number] 4 Unknown [id number] 2 Unknown [id number] 2 Unknown [id number] 2 Social History Date Type Detail Facility Start: 07-28-2019 End: 08-11-2023 Tobacco smoking status NHIS Current every day smoker [facility] History of tobacco use Cigarette Smoker [place] Start: 07-28-2019 End: 04-20-2024 Cigarettes smoked current (pack per day) - Reported [facility] Start: 07-28-2019 End: 08-15-2023 Alcohol intake Current drinker of alcohol (finding) [place], [place] Start: 06-06-2018 End: 03-16-2022 History SDOH Alcohol Frequency 5 [place] Start: 06-06-2018 Alcohol Comment 5th of liquor [place], [place] Start: 1985 Sex Assigned At Not on file [place] Exposure to SARS-CoV -2 (event) Unable to assess [place] Start: 03-16-2022 Alcohol Comment 1 gallon of vo dka, 12 pack of beer daily [facility] Start: 03-05-2022 End: 11-03-2022 Exposure to SARS-CoV-2 (event) Not sure [facility] Start: 06-12-2022 End: 08-11-2023 Tobacco use and exposure Smokeless tobacco non-user [facility] Start: 06-12-2022 History SDOH Alcohol Std Drinks 3 [facility] Start: 07-10-2022 Alcohol Comment 1 liter black velvet and a case of beer per day [facility] Start: 1985 Sex Assigned At Male S [facility] Start: 06-26-2022 End: 04-20-2024 Alcohol Use Disorder Identification Test - Consumption [AUDIT-C] [facility] How often to you hav e a drink containing alcohol? 4 or more times a week [facility] How many standard dr inks containing alcohol do you have on a typical day? 10 or more [facility] How often do you hav e 6 or more drinks on 1 occasion? Daily or almost daily [facility] Start: 06-26-2022 Gender identity Identifies as male gender (finding) [facility] Within the last year , have you been afraid of your partner or ex-partner? No [facility] In a typical week, h ow many times do you talk on the telephone with family, friends, or neighbors? Patient refused [facility] Are you now , , , , never or living with a partner? Refused [facility] How hard is it for y ou to pay for the very basics like food, housing, medical care, and heating Very hard [facility] Do you feel stress - tense, restless, nervous, or anxious, or unable to sleep at night because your mind is troubled all the time - these days [OSQ] To some extent [facility] (I/We) worried wheth er (my/our) food would run out before (I/we) got money to buy more. Often true [facility] In the past 12 month s, was there a time when you were not able to pay the mortgage or rent on time? Yes [facility] How often to you hav e a drink containing alcohol? Never [facility] Start: 01-07-2023 End: 12-08-2024 Alcohol intake Ex-drinker (finding) [facility] Are you now , , , , never or living with a partner? Never [facility] Do you feel stress - tense, restless, nervous, or anxious, or unable to sleep at night because your mind is troubled all the time - these days [OSQ] Very much [facility] Start: 08-11-2023 Alcohol Comment 2/5 vodka daily [facility] Start: 09-09-2021 Sex Male (finding) [facility] How many standard dr inks containing alcohol do you have on a typical day? 7 to 9 [facility] How hard is it for y ou to pay for the very basics like food, housing, medical care, and heating Somewhat hard [facility] (I/We) worried wheth er (my/our) food would run out before (I/we) got money to buy more. Never true [facility] In the past 12 month s, how many times have you moved where you were living? In the past 12 months, how many times have you moved where you were living? [facility] How often do you hav e 6 or more drinks on 1 occasion? Weekly [facility] Start: 06-18-2024 Alcohol Comment former 2/5 vod ka daily. Sober since april 2024 [facility] How often do you nee d to have someone help you when you read instructions, pamphlets, or other written material from your doctor or pharmacy [SILS] Sometimes [facility] How often to you hav e a drink containing alcohol? 2-4 times a month [facility] How many standard dr inks containing alcohol do you have on a typical day? 5 or 6 [facility] How often do you hav e 6 or more drinks on 1 occasion? Monthly [facility] Goals Date Patient Goal Desired Activity /State Functional Status Date Assessment Result Facility 11-30-2024 Functional status Ambulates [facility] Work Phone: 06-26-2024 Total score [AUDIT-C] 06/27/19 7:11 PM Cielo George RN [facility] 03-22-2024 Drug Abuse Screening Test-10 [DAST-10] [facility] 02-05-2024 Patient Health Quest ionnaire 2 item (PHQ-2) [Reported] [facility] 02-05-2024 PHQ-9 quick depressi on assessment panel [Reported.PHQ] [facility] 02-04-2024 Drug Abuse Screening Test-10 [DAST-10] [facility] 12-15-2023 Are you deaf, or do you have serious difficulty hearing No 12/15/2023 1:46 PM Edwige Fagan, RN No [facility] 12-15-2023 Are you blind, or do you have serious difficulty seeing, even when wearing glasses No 12/15/2023 1:46 PM Edwige Fagan, RN No [facility] 12-15-2023 Do you have serious difficulty walking or climbing stairs No 12/15/2023 1:46 PM Edwige Fagan, RN No [facility] 12-15-2023 Do you have difficul ty dressing or bathing No 12/15/2023 1:46 PM Edwige Fagan, RN No [facility] Mental Status Date Assessment Result Facility 12-01-2024 Cognitive function Voice/Name [facility] Work Phone: 12-15-2023 Because of a physica l, mental, or emotional condition, do you have serious difficulty concentrating, remembering, or making decisions No 12/15/2023 1:46 PM EST Edwige Roldan, JOSE GUADALUPE No [facility] Clinical Notes 03-15-2022 to 12-19-2024 Telephone Encounter - Katherin Monroe MA - 12/19/2024 1:44 PM ESTTelephone Encounter - Katherin Monroe MA - 12/19/2024 1:44 PM ESTTelephone Encounter - Katherin Monroe MA - 12/16/2024 1:35 PM EST Note Date & Type Note Facility 12-19-2024 Telephone encounter Note Images from the original note were not included. [facility] 12-19-2024 Miscellaneous Notes Images from the original [...] and notify pt. documented in this encounter [facility] 12-16-2024 Telephone encounter Note Pt called into our office regarding miss appointment, pt was no show on his appt, want to r.s, let him know we do not have any opening as how now, discuss alternative gi , pt prefer [facility] Referral placed, faxed referral waiting on confrication [facility] 12-16-2024 Miscellaneous Notes Pt called into our [...] and notify pt. documented in this encounter [facility] 12-13-2024 Telephone encounter Note Pt called into [...] at 8:00 AM. Called and notify pt. [facility] 12-08-2024 Progress note Formatting of t his note might be different from the original. Request from [facility] for setting up transport home. WC van set up in [employer], claimed by [employer] at 3pm. [facility] Phone: 12-08-2024 Miscellaneous Notes Request from [facility] for setting up transport home. WC van set up in [employer], claimed by [employer] at 3pm. Patient does not have a ride post procedure. His mother who was listed as a ride is at work and can't make it. Patient unable to remember any phone numbers of friends & family members to call for assistance. Janet Uribe notified. [facility] Patient Name: Roro Valdivia Procedure Date: 12/08/2024 12:34 PM Gender: Male Date of : 1985 Age: 39 Admit Type: Outpatient Note Status: Finalized Endoscopist: Sonya Cramer MD, [id number] Procedure: Upper GI endoscopy Indications: Alcoholic cirrhosis [...] by the physician, the nurse and the tower loader operator in the pre-procedure area in the procedure [...] 12/08/2024 12:34 PM documented in this encounter [facility] 12-08-[address] Adrian Loyola anesthesiologist and Dr. Cramer endoscopist notified that patient does not have a ride home. No ride guideline safe transport policy followed. Same day licensed master social worker called and arrangements will be made for an ambulance to take patient home. Patient is aware of plan. [facility] 12-08-[address] Adrian Loyola anesthesiologist and Dr. Cramer endoscopist notified that patient does not have a ride home. No ride guideline safe transport policy followed. Same day licensed master social worker called and arrangements will be made for an ambulance to take patient home. Patient is aware of plan. documented in this encounter [facility] 12-08-2024 Note Patient does not hav e a ride post procedure. His mother who was listed as a ride is at work and can't make it. Patient unable to remember any phone numbers of friends & family members to call for assistance. Janet Uribe notified. [facility] 12-08-2024 Nurse Note Patient does not have a ride post procedure. His mother who was listed as a ride is at work and can't make it. Patient unable to remember any phone numbers of friends & family members to call for assistance. Janet Uribe notified. 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 PHYSICIAN [...] 10 mL, 10 mL, IntraVENous, PRN, Sonya rCamer MD sodium chloride 0.9% (NS) flush 10 [...] palsy, left Seizures (HCC) SVT (supraventricular tachycardia) ([facility]) Tourette syndrome [facility]OSPITAL [facility] Phone: 12-08-2024 Note [facility] 12-08-2024 History and physical [...] (HCC) Tourette syndrome documented in this encounter [facility] 12-08-2024 Procedure note [facility] Patient Name: Roro Valdivia Procedure Date: 12/08/2024 12:34 PM Gender: Male Date of : 1985 Age: 39 Admit Type: Outpatient Note Status: Finalized Endoscopist: Sonya Cramer MD, [id number] Procedure: Upper GI endoscopy Indications: Alcoholic cirrhosis [...] by the physician, the nurse and the tower loader operator in the pre-procedure area in the procedure [...] 0 Note Initiated On: 12/08/2024 12:34 PM [facility] 12-01-2024 Telephone encounter Note [address] Sonya Cramer EGD Date: . 12/08/24 Arrival time: 12:15 pm Please report to: [place] [id number] Spoke with pt, confirmed they will attend scheduled procedure. Patient states he has prep instructions, he disconnected the call before I could remind him he needed a driver guide. Prep instructions sent via [employer]. [facility] 12-01-2024 Miscellaneous Notes [address] Sonya Cramer EGGennaro Date: . 12/08/24 Arrival time: 12:15 pm Please report to: [address] [address] Spoke with pt, confirmed they will attend scheduled procedure. Patient states he has prep instructions, he disconnected the call before I could remind him he needed a driver guide. Prep instructions sent via [employer]. 14 or 7 day confirmation call? 14 [...] voiced understanding? No documented in this encounter [facility] 12-01-2024 Note [facility] Medical Records Department [address] [place] [address] Discharge Summary 12/01/24 0959 MR#: [id number] Acct: [id number] Name: RORO VALDIVIA Rep #: [id number] : 1985 39 From: Joe Mcmillan DO PCP: Care Physician,No Primary Status:ADM IN Location: [place] [address] Providers Date of Admission: 11/30/24 Primary Care [...] has cirrhosis by his GI physicians in [place]. Advised ongoing discontinuation of alcohol. DVT prophylaxis [...] Care Charges/Coding Visit Charges Inpatient E M: 97138 Disch Hosp 12/01/24 1003 Cosigner Signature (if applicable): CC: Dr. Joe Mcmillan DO; No Primary Care Physician Signed [facility] 11-30-2024 Discharge summary [facility] 11-29-2024 Discharge summary Note Date/Time November 30, 2024 1:26am [facility] Medical Records Department [address] [place] [address] Emergency Department Summary 11/29/24 MR#: [id number] Acct: [id number] Name: RORO VALDIVIA Rep #:[id number] : 1985 39 From: Amilcar lindsey DO [...] % (Auto) 63.3 Lymph % (Auto) 28.2 [place] % (Auto) 7.5 Eos % (Auto) 0.5 [...] Primary [Primary Care Provider, Medical] Print Language: Mauritian What to do if you have Problems For any increased pain, shortness of breath, bleeding, nausea or vomiting, chestpain, or any unexpected problems, contact your Primary Care Provider. Call [facility] ([phone]) or report to the closest Emergency Room. Call 911 if necessary. 11/30/24 0026 <Electronically signed by Amilcar Dumont DO> Cosigner Signature (if applicable): CC: No Primary Care Physician ~ Signed [facility] Work Phone: [phone] 597-822810-16-2025 Telephone encounter Note* Telephone Encounter - Suzy [...] answered and patient voiced understanding? No T [id number] History of Present illness Narrative* Ajay Ochoa DMD - 11/15/2024 2:00 PM EDT Procedure Details 19 D7140 - WV EXTRACTION, ERUPTED TOOTH OR EXPOSED ROOT (ELEVATION AND/OR FORCEPS REMOVAL) 21 D7140 - WV EXTRACTION, ERUPTED TOOTH OR EXPOSED ROOT (ELEVATION AND/OR FORCEPS REMOVAL) 23 D7140 - WV EXTRACTION, ERUPTED TOOTH OR EXPOSED ROOT (ELEVATION AND/OR FORCEPS REMOVAL) 24 D7140 - WV EXTRACTION, ERUPTED TOOTH OR EXPOSED ROOT (ELEVATION AND/OR FORCEPS REMOVAL) 25 D7140 - WV EXTRACTION, ERUPTED TOOTH OR EXPOSED ROOT (ELEVATION AND/OR FORCEPS REMOVAL) 26 D7140 - WV EXTRACTION, ERUPTED TOOTH OR EXPOSED ROOT (ELEVATION AND/OR FORCEPS REMOVAL) 29 D7140 - WV EXTRACTION, ERUPTED TOOTH OR EXPOSED ROOT (ELEVATION [...] DMD 3:27 PM 11/15/24 documented in this [facility]10-07-2025 History of Present illness Narrative* Ajay Ochoa DMD - 11/15/2024 2:00 PM EDT Procedure Details 19 D7140 - WV EXTRACTION, ERUPTED TOOTH OR EXPOSED ROOT (ELEVATION AND/OR FORCEPS REMOVAL) 21 D7140 - WV EXTRACTION, ERUPTED TOOTH OR EXPOSED ROOT (ELEVATION AND/OR FORCEPS REMOVAL) 23 D7140 - WV EXTRACTION, ERUPTED TOOTH OR EXPOSED ROOT (ELEVATION AND/OR FORCEPS REMOVAL) 24 D7140 - WV EXTRACTION, ERUPTED TOOTH OR EXPOSED ROOT (ELEVATION AND/OR FORCEPS REMOVAL) 25 D7140 - WV EXTRACTION, ERUPTED TOOTH OR EXPOSED ROOT (ELEVATION AND/OR FORCEPS REMOVAL) 26 D7140 - WV EXTRACTION, ERUPTED TOOTH OR EXPOSED ROOT (ELEVATION AND/OR FORCEPS REMOVAL) 29 D7140 - WV EXTRACTION, ERUPTED TOOTH OR EXPOSED ROOT (ELEVATION [...] ERVIN Reza DMD 3:27 PM 11/15/24 * Vamsih Moncada DDS - 11/15/2024 2:00 PM EDT I saw and evaluated the patient, participating in the erickson portions of the service. I reviewed the resident s note. I agree with the resident s findings and plan. Vamshi Moncada DDS documented in this [facility]10-07-2025 Telephone encounter Note* Telephone Encounter - Hattie Law MA - 11/15/2024 12:56 PM EDT I called patient to relay new order information, no answer, left voicemail to let him know new bloodwork ordered, advised to call office if he does have questions. [facility] WestMgjmco08-48-5780 Miscellaneous Notes* Telephone Encounter - Hattie Law [...] marker is negative. ----- Message ----- From: [facility] Lab Results In Sent: 11/05/2024 6:10 AM EDT To: Guillermo Mon PA-C * Result Encounter Note - Guillermo Mon PA-C - 11/07/2024 11:03 AM EDT INR is slightly increased, but improved since last time. * Result Encounter Note - Guillermo Mon PA-C - 11/07/2024 10:26 AM EDT Liver numbers are going down. AFP tumor marker is negative. documented in this [facility]10-02-2025 Note* Addendum Note - Guillermo Mon PA-C - 11/10/2024 3:31 PM EDTAddended by: GUILLERMO MON on: 11/10/2024 03:31 PM Modules accepted: Orders [place] [id number] Note* Addendum Note - Guillermo Mon PA-C - 11/10/2024 3:31 PM EDTAddended by: GUILLERMO MON on: 11/10/2024 03:31 PM Modules accepted: Orders [place] [id number] Progress note* Result Encounter Note - Guillermo Mon PA-C - 11/10/2024 3:31 PM EDT Hep A positive. Most likely from previous resolved infection or immunity. But will check to see if recent infection. [facility] WestEccwqp71-42-0466 Miscellaneous Notes* Addendum Note - Guillermo Mon [...] marker is negative. ----- Message ----- From: [facility] Lab Results In Sent: 11/05/2024 6:10 AM EDT To: Guillermo Mon PA-C * Result Encounter Note - Guillermo Mon PA-C - 11/07/2024 11:03 AM EDT INR is slightly increased, but improved since last time. * Result Encounter Note - Guillermo Mon PA-C - 11/07/2024 10:26 AM EDT Liver numbers are going down. AFP tumor marker is negative. documented in this [facility]10-01-2025 Telephone encounter Note* Telephone Encounter - Hattie Law MA - 11/09/2024 1:52 PM EDT Called back patient and spoke with him. Patient is concerned about abnormal hepatitis A result and would like to know if any additional testing needs done or what to do. Advised will route to provider for review [facility] WestMdteby50-24-5896 Miscellaneous Notes* Telephone Encounter - Hattie Law [...] is negative. ----- Message ----- From: [facility] Results In Sent: 11/05/2024 6:10 AM EDT To: Guillermo Mon PA-C * Result Encounter Note - Guillermo Mon PA-C - 11/07/2024 11:03 AM EDT INR is slightly increased, but improved since last time. * Result Encounter Note - Guillermo Mon PA-C - 11/07/2024 10:26 AM EDT Liver numbers are going down. AFP tumor marker is negative. documented in this encounterSSelect Medical [facility] Rehabilitation HospitalCnvwld56-06-2136 Telephone encounter Note* Telephone Encounter - Afshin Dubose - 11/08/2024 1:05 PM EDT Pt called and lvm for office frustrated as he keeps missing our calls and can never get a hold of our office back. Thanks [facility] WestNukssk94-13-2949 Miscellaneous Notes* Telephone Encounter - Afshin Dubose [...] marker is negative. ----- Message ----- From: [facility] Results In Sent: 11/05/2024 6:10 AM EDT To: Guillermo Mon PA-C * Result Encounter Note - Guillermo Mon PA-C - 11/07/2024 11:03 AM EDT INR is slightly increased, but improved since last time. * Result Encounter Note - Guillermo Mon PA-C - 11/07/2024 10:26 AM EDT Liver numbers are going down. AFP tumor marker is negative. documented in this encounterSSelect Medical Ohio[facility] Rehabilitation HospitalBumzzc37-82-7668 Telephone encounter Note* Telephone Encounter - Hattie Law MA - 11/08/2024 11:41 AM EDT Called patient, no answer, left voicemail relaying results. Provided office number if patient has any questions or concerns. [facility] WestMaxwrz50-04-9096 Telephone encounter Note* Telephone Encounter - Hattie Law MA - 11/08/2024 11:41 AM EDT ----- Message from Judith Park sent at 11/08/2024 10:55 AM EDT ----- ----- Message ----- From: Guillermo Mon PA-C Sent: 11/07/2024 10:26 AM EDT To: Judith Sofia MA Liver numbers are going down. AFP tumor marker is negative. ----- Message ----- From: [facility] Results In Sent: 11/05/2024 6:10 AM EDT To: Guillermo Mon PA-C [id number] Progress note* Result Encounter Note - Guillermo Mon PA-C - 11/07/2024 11:03 AM EDT INR is slightly increased, but improved since last time. [place] Phone: [phone] Telephone encounter Note* Telephone Encounter - Hattie Law MA - 11/07/2024 10:42 AM EDT Ok from anesthesia standpoint per [facility] HospitalMixed Media LabsLyczic36-91-5092 Miscellaneous Notes* Telephone Encounter - Hattie Law [...] at 1:[address] Cramer at [facility] NON-MAIN ENDO forhistory of esophagitis. Patient aware prep instructions will be mailed to him and sent via Archetypes EPIC schedule updated Order submitted Open Case request submitted Case # [id number] Endo packet mailed to patient Prep sent via Archetypes if pt acct active Pt is aware they will need a driver guide to take them home from procedure. Must be family member or friend. They can only use ride programs, IF they have a friend or family member to ride with them. Ex: Uber, Lyft, SCAT, bus, etc...) * Telephone Encounter - Hattie Law MA - 11/01/2024 10:02 AM EDT --Please call office with any questions or concerns! [phone] --Schedule EGD (upper endoscopy) for varices screening, follow up of esophagitis. --Continue Pantoprazole 40 mg daily. --Obtain additional blood work for further evaluation of the symptoms. --Continue to abstain from alcohol. --Please see handout provided regarding additional information. --Follow-up with PCP, and in GI clinic in about 6 months. documented in this encounterSSelect Medical OhioHealth Rehabilitation HospitalBgeioz24-09-8840 Progress note* Result Encounter Note - Guillermo Mon PA-C - 11/07/2024 10:26 AM EDT Liver numbers are going down. AFP tumor marker is negative. [facility] WestOrzswd72-04-1745 Telephone encounter Note* Telephone Encounter - Hattie [...] call back, left voicemail with office number. WebMDGjyaru51-60-1455 Telephone encounter Note* Telephone Encounter - Hattie Law MA - 11/01/2024 10:03 AM EDT Scheduled patient for EGD 12/08/24 at 1:[address] Cramer at [facility] NON-MAIN ENDO forhistory of esophagitis. Patient aware prep instructions will be mailed to him and sent via VMLogix schedule updated Order submitted Open Case request submitted Case # [id number] Endo packet mailed to patient Prep sent via Archetypes if pt acct active Pt is aware they will need a driver guide to take them home from procedure. Must be family member or friend. They can only use ride programs, IF they have a friend or family member to ride with them. Ex: Uber, Lyft, SCAT, bus, etc...) [id number] Telephone encounter Note* Telephone Encounter - Hattie Law MA - 11/01/2024 10:02 AM EDT --Please call office with any questions or concerns! [phone] --Schedule EGD (upper endoscopy) for varices screening, follow up of esophagitis. --Continue Pantoprazole 40 mg daily. --Obtain additional blood work for further evaluation of the symptoms. --Continue to abstain from alcohol. --Please see handout provided regarding additional information. --Follow-up with PCP, and in GI clinic in about 6 months. T [id number] History of Present illness Narrative* Guillermo Mon PA-C - 11/01/2024 9:00 AM EDT Images from the original note were not included. [facility] - [address] [facility] [address] Dept: [phone] Dept Loc: [phone] Visit type: Established Reason for Visit: Follow-up [...] type 04/04/2024 Priority: Medium Severe malnutrition (CMS/HCC) ([facility]) 02/06/2024 Priority: Medium Alcohol withdrawal syndrome without complication ([facility]) 02/04/2024 Priority: Medium Alcohol-induced acute pancreatitis, unspecified complication status 01/20/2024 Priority: Medium Alcoholic intoxication without complication (CMS/HCC) ([facility]) 12/13/2023 Priority: Medium Moderate malnutrition (CMS/HCC) ([facility]) 11/20/2023 Priority: Medium Acute pancreatitis without infection or necrosis 11/18/2023 Priority: Medium Acute recurrent pancreatitis 10/16/2023 Priority: Medium Severe opioid use disorder on maintenance therapy ([facility]) 08/11/2023 Priority: Medium Severe episode of recurrent major depressive disorder, without psychotic features ([facility]) 08/11/2023 Priority: Medium Severe alcohol use disorder ([facility]) 06/24/2023 Priority: Medium Positive 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 01/07/2023 Priority: Medium History of pancreatitis 01/07/2023 Priority: Medium Benzodiazepine withdrawal with complication ([facility]) 11/04/2022 Priority: Medium Opioid withdrawal ([facility]) 11/04/2022 Priority: Medium Amphetamine withdrawal ([facility]) 11/04/2022 Priority: Medium Pneumonia 11/04/2022 Priority: Medium [...] Note Status: Finalized Endoscopist: Hari Kline MD, [id number] Procedure: Upper GI endoscopy Indications: Hematemesis Findings: [...] add carafate - [facility] - Advance diet as tolerated [...] Mother No Known Problems Father documented in [facility]09-23-2025 Instructions* Patient Instructions* Hattie Law MA - 11/01/2024 9:00 AM EDT --Please call office with any questions or concerns! [phone] --Schedule EGD (upper endoscopy) for varices screening, [...] through Care Everywhere. * Upper GI Endoscopy (Mauritian) documented in this [facility]09-09-2025 Telephone encounter Note* Telephone Encounter - Steph Garcia - 10/18/2024 10:48 AM EDT Pt has an appointment on 11/15 will schedule at that time. [facility] WestBrnvci40-82-5694 Miscellaneous Notes* Telephone Encounter - Steph Garcia - 10/18/2024 10:48 AM EDT Pt has an appointment on 11/15 will schedule at that time. * Telephone Encounter - Aydee Martinez - 10/17/2024 8:17 AM EDT LOWER PARTIAL, FULL UPPER AND RUBIN REMOVAL APPROVED. PLEASE SCHEDULE. documented in this [facility]09-08-2025 Telephone encounter Note* Telephone Encounter - Aydee Martinez - 10/17/2024 8:17 AM EDT LOWER PARTIAL, FULL UPPER AND RUBIN REMOVAL APPROVED. PLEASE SCHEDULE. [facility] WestDzncgr51-78-3706 History of Present illness Narrative* Lauren Alla Perez, DDS - 10/04/2024 4:00 PM EDT Procedure Details 20 D0220 - WV INTRAORAL - PERIAPICAL FIRST RADIOGRAPHIC IMAGE 23 D0220 - WV INTRAORAL - PERIAPICAL FIRST RADIOGRAPHIC IMAGE 25 D0220 - WV INTRAORAL - PERIAPICAL FIRST RADIOGRAPHIC IMAGE 27 D0220 - WV INTRAORAL - PERIAPICAL FIRST RADIOGRAPHIC IMAGE D0150 - WV COMPREHENSIVE ORAL EVALUATION - NEW OR ESTABLISHED [...] DDS 10/04/24 5:04 PM documented in this [facility]08-26-2025 History of Present illness Narrative* Lauren Perez DDS - 10/04/2024 4:00 PM EDT Procedure Details 20 D0230 - WV INTRAORAL - PERIAPICAL EACH ADDITIONAL RADIOGRAPHIC IMAGE 23 D0230 - WV INTRAORAL - PERIAPICAL EACH ADDITIONAL RADIOGRAPHIC IMAGE 25 D0230 - WV INTRAORAL - PERIAPICAL EACH ADDITIONAL RADIOGRAPHIC IMAGE 27 D0220 - WV INTRAORAL - PERIAPICAL FIRST RADIOGRAPHIC IMAGE D0150 - WV COMPREHENSIVE ORAL EVALUATION - NEW OR ESTABLISHED [...] DDS 10/04/24 5:04 PM documented in this [facility]08-26-2025 NoteI discussed the patient with the resident prior to treatment. I was available for consultation and/or directly participated in care. We agree with the treatment provided and the notations made. Christo Beltran, ERVIN 10/04/24 5:04 [facility]08-25-2025 Note* Addendum Note - Guillermo Mon PA-C - 10/03/2024 5:01 PM EDTAddended by: GUILLERMO MON on: 10/03/2024 05:01 PM Modules accepted: Orders [facility] WestVrwone00-27-5746 Note* Addendum Note - Guillermo Mon PA-C - 10/03/2024 5:01 PM EDTAddended by: GUILLERMO MON on: 10/03/2024 05:01 PM Modules accepted: Orders [facility] WestYhqcyi26-92-3642 Note* Addendum Note - Guillermo Mon PA-C - 10/03/2024 5:01 PM EDTAddended by: GUILLERMO MON on: 10/03/2024 05:01 PM Modules accepted: Orders [facility] WestLksiga64-16-1333 Progress note* Result Encounter Note - uGillermo Mon PA-C - 10/03/2024 5:01 PM EDT Call [facility]. Went over fibroscan. INR ordered. Will also order CMP. Continue with appointment 11/01/2024. [address]Cdjgfs65-48-5508 Miscellaneous Notes* Addendum Note - Guillermo Mon [...] ordered by Eric Hartley. documented in this encounterSSelect Medical [facility] Rehabilitation HospitalUskjpu98-80-4321 Telephone encounter Note* Telephone Encounter - Marcelina Hernandez MA - 10/03/2024 1:45 PM EDT Pt lvm requesting callback. Spoke with Pt he is requesting call to go over Fibroscan results prior to his appt. Pt is very worried about his results. [facility] WestUbycxj45-26-7649 Telephone encounter Note* Telephone Encounter - Afshin Dubose - 10/03/2024 10:05 AM EDT Patient called and lvm for office trying to get results of his liver test. Upon review Guillermo stauffer patient results will be gone over in November during his OV. Thanks [facility] WestValdfs10-02-4222 Progress note* Result Encounter Note - Guillermo Mon PA-C - 2024 2:05 PM EDT Will review Fibroscan with [facility] 11/15/2024. Recommend to complete blood work as ordered by Eric Hartley. [facility] WestNkzraq19-91-0873 Telephone encounter Note* Telephone Encounter - Steph Garcia - 08/31/2024 10:05 AM EDT Pt has appointment on 09/07 will schedule at that time. [facility] WestCzlvst37-43-3492 Miscellaneous Notes* Telephone Encounter - Steph Garcia - 08/31/2024 10:05 AM EDT Pt has appointment on 09/07 will schedule at that time. * Telephone Encounter - Aydee Martinez - 08/29/2024 10:30 AM EDT UPPER DENTURE APPROVED. PLEASE SCHEDULE documented in this encounterSSelect Medical [facility] Rehabilitation HospitalLyluor97-13-5186 Telephone encounter Note* Telephone Encounter - Aydee Martinez - 08/29/2024 10:30 AM EDT UPPER DENTURE APPROVED. PLEASE SCHEDULE [facility] WestLomqwx90-81-9273 History of Present illness Narrative* Lauren Perez, PRIYAS - 08/24/2024 3:00 PM EDT Procedure Details 4 D0220 - WV INTRAORAL - PERIAPICAL FIRST RADIOGRAPHIC IMAGE 4 D7140 - WV EXTRACTION, ERUPTED TOOTH OR EXPOSED ROOT (ELEVATION AND/OR FORCEPS REMOVAL) 6 D7140 - WV EXTRACTION, ERUPTED TOOTH OR EXPOSED ROOT (ELEVATION AND/OR FORCEPS REMOVAL) 13 D7140 - WV EXTRACTION, ERUPTED TOOTH OR EXPOSED ROOT (ELEVATION AND/OR FORCEPS REMOVAL) D0330 - WV PANORAMIC RADIOGRAPHIC IMAGE Subjective Patient ID: [facility] [...] Until 09/03/2024 at 2359 documented in this [facility]07-16-2025 History of Present illness Narrative* Lauren Perez DDS - 08/24/2024 3:00 PM EDT Procedure Details 4 D0220 - WV INTRAORAL - PERIAPICAL FIRST RADIOGRAPHIC IMAGE 4 D7140 - WV EXTRACTION, ERUPTED TOOTH OR EXPOSED ROOT (ELEVATION AND/OR FORCEPS REMOVAL) 6 D7140 - WV EXTRACTION, ERUPTED TOOTH OR EXPOSED ROOT (ELEVATION AND/OR FORCEPS REMOVAL) 13 D7140 - WV EXTRACTION, ERUPTED TOOTH OR EXPOSED ROOT (ELEVATION AND/OR FORCEPS REMOVAL) D0330 - WV PANORAMIC RADIOGRAPHIC IMAGE Subjective Patient ID: Roro [...] note. 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 [facility] - [address] [facility] [address] Dept: [phone] Dept Loc: [phone] Visit type: New Reason for Visit: Follow-up ( discuss mri and labs, known pancreatitis - wishing to see samira before she leaves) PCP: Tam Hughes, DO Assessment and Plan Diagnosis Plan 1. Alcohol induced acute pancreatitis without necrosis or infection 2. Elevated liver enzymes Antimitochondrial antibody REMINGTON Wavrp-4-Bpdodxqdvag, Quantitative Smooth muscle antibody with reflex Titer Celiac Panel Ferritin Hepatitis B surface antibody Hepatitis B Core Antibody, Total Hepatitis B surface antigen Hepatitis C antibody Liver-Kidney Microsome 1 Ab Protime-INR Fibroscan Antimitochondrial antibody REMINGTON Erdte-8-Vdpkaklaebc, Quantitative Smooth muscle antibody with reflex Titer [...] type 04/04/2024 Priority: Medium Severe malnutrition (CMS/HCC) ([facility]) 02/06/2024 Priority: Medium Alcohol withdrawal syndrome without complication ([facility]) 02/04/2024 Priority: Medium Alcohol-induced acute pancreatitis, unspecified complication status 01/20/2024 Priority: Medium Alcoholic intoxication without complication (CMS/HCC) ([facility]) 12/13/2023 Priority: Medium Moderate malnutrition (CMS/HCC) ([facility]) 11/20/2023 Priority: Medium Acute pancreatitis without infection or necrosis 11/18/2023 Priority: Medium Acute recurrent pancreatitis 10/16/2023 Priority: Medium Severe opioid use disorder on maintenance therapy (HCC) 08/11/2023 Priority: Medium Severe episode of recurrent major depressive disorder, without psychotic features ([facility]) 08/11/2023 Priority: Medium Severe alcohol use disorder ([facility]) 06/24/2023 Priority: Medium Positive 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 [...] disease) 06/06/2018 Hypertension 06/06/2018 SVT (supraventricular tachycardia) ([facility]) 06/06/2018 Tourette syndrome 06/06/2018 Alcohol induced acute pancreatitis without necrosis or infection 03/29/2018 Past Medical History: Past Medical History: Diagnosis Date Addiction to drug ([facility]) ([facility]) Alcohol abuse Alcohol withdrawal syndrome without complication ([facility]) 06/27/2022 Alcohol withdrawal with inpatient treatment, uncomplicated ([facility]) 03/15/2022 GERD (gastroesophageal reflux disease) History of pancreatitis 01/07/2023 Hypertension Pancreatitis Radial nerve palsy, left Seizures ([facility]) SVT (supraventricular tachycardia) ([facility]) Tourette syndrome Past Surgical History: Past Surgical [...] Negative 06/26/2022 HEPCAB Not Detected 11/23/2023 [id number] Date/Time: 06/20/2024 13:29 Procedure: MR ABDOMEN [...] EDT Patient Name: RORO VALDIVIA : 1985 [facility]#: [id number] Exam Date/Time: 05/30/2024 22:45 Procedure: CT ABDOMEN [...] NP-C 12:26 PM 08/23/24 documented in this [facility]07-15-2025 History of Present illness Narrative* JOSÉ ANTONIO Harrison CNP - 08/23/2024 11:00 AM EDT Images from the original note were not included. [facility] - [address] [facility] [address] Dept: [phone] Dept Loc: [phone] Visit type: New Reason for Visit: Follow-up ( discuss mri and labs, known pancreatitis - wishing to see samira before she leaves) PCP: Tam Hughes, DO Assessment and Plan Diagnosis Plan 1. Alcohol induced acute pancreatitis without necrosis or infection 2. Elevated liver enzymes Antimitochondrial antibody REMINGTON Dqrwt-6-Bldclivbxtw, Quantitative Smooth muscle antibody with reflex Titer Celiac Panel Ferritin Hepatitis B surface antibody Hepatitis B Core Antibody, Total Hepatitis B surface antigen Hepatitis C antibody Liver-Kidney Microsome 1 Ab Protime-INR Fibroscan Antimitochondrial antibody REMINGTON Hgqte-8-Sfznjdsqkti, Quantitative Smooth muscle antibody with reflex Titer [...] type 04/04/2024 Priority: Medium Severe malnutrition (CMS/HCC) ([facility]) 02/06/2024 Priority: Medium Alcohol withdrawal syndrome without complication ([facility]) 02/04/2024 Priority: Medium Alcohol-induced acute pancreatitis, unspecified complication status 01/20/2024 Priority: Medium Alcoholic intoxication without complication (CMS/HCC) ([facility]) 12/13/2023 Priority: Medium Moderate malnutrition (CMS/HCC) ([facility]) 11/20/2023 Priority: Medium Acute pancreatitis without infection or necrosis 11/18/2023 Priority: Medium Acute recurrent pancreatitis 10/16/2023 Priority: Medium Severe opioid use disorder on maintenance therapy ([facility]) 08/11/2023 Priority: Medium Severe episode of recurrent major depressive disorder, without psychotic features ([facility]) 08/11/2023 Priority: Medium Severe alcohol use disorder ([facility]) 06/24/2023 Priority: Medium Positive 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 01/07/2023 Priority: Medium History of pancreatitis 01/07/2023 Priority: Medium Benzodiazepine withdrawal with complication (HCC) 11/04/2022 Priority: Medium Opioid withdrawal (HCC) 11/04/2022 Priority: Medium Amphetamine withdrawal ([facility]) 11/04/2022 Priority: Medium Pneumonia 11/04/2022 Priority: Medium [...] EDT [facility] 1985 [id number] Exam Date/Time: 05/30/2024 22:45 Procedure: CT ABDOMEN [...] NP-C 12:26 PM 08/23/24 documented in this [facility]07-15-2025 Instructions* Patient Instructions* Jhon Milian MA - 08/23/2024 11:00 AM EDT --blood work to be completed order given --fibroscan faxing order to ID dept --complete alcohol abstinence is recommended --diet recommendations printed for review --follow up in 2 months * Attachments The following attachments cannot be sent through Care Everywhere. * Pancreatitis Discharge Instructions (Mauritian) * Diet for Cirrhosis (Mauritian) documented in this [facility]07-15-2025 Instructions* Patient Instructions* Jhon Milian MA - 08/23/2024 11:00 AM EDT --blood work to be completed order given --fibroscan faxing order to ID dept --complete alcohol abstinence is recommended --diet recommendations printed for review --follow up in 2 months * Attachments The following attachments cannot be sent through Care Everywhere. * Pancreatitis Discharge Instructions (Mauritian) * Diet for Cirrhosis (Mauritian) documented in this [facility]07-15-2025 Miscellaneous Notes* Addendum Note - Vance Lizama - 08/23/2024 11:00 AM EDTAddended by: VANCE LIZAMA on: 2024 02:43 PM Modules accepted: Orders * Addendum Note - Vance Lizama - 08/23/2024 11:00 AM EDTAddended by: VANCE LIZAMA on: 2024 02:44 PM Modules accepted: Orders documented in this [facility]07-15-2025 Note* Addendum Note - Vance Lizama - 08/23/2024 11:00 AM EDTAddended by: VANCE LIZAMA on: 2024 02:43 PM Modules accepted: Orders [place] [id number] Note* Addendum Note - Vance Lizama - 08/23/2024 11:00 AM EDTAddended by: VANCE LIZAMA on: 2024 02:44 PM Modules accepted: Orders [place] [id number] Note* Addendum Note - Vance Lizama - 08/23/2024 11:00 AM EDTAddended by: VANCE LIZAMA on: 2024 02:43 PM Modules accepted: Orders [place] [id number] Note* Addendum Note - Vance Lizama - 08/23/2024 11:00 AM EDTAddended by: VANCE LIZAMA on: 2024 02:44 PM Modules accepted: Orders [place] [id number] Telephone encounter Note* Telephone Encounter - Hattie Law MA - 08/22/2024 3:06 PM EDT Patient called back in, sooner opening no longer available. Rescheduled for 11/15 at 10:30 and placed on cancellation list. Patient stated this appointment is too far out, will call with next opening we get. [place] [id number] Miscellaneous Notes* Telephone Encounter - Hattie Law [...] r/s OV due to provider OOO. Sent [employer]types message aswell for patient to respond to. Thanks documented in this encounterSSelect Medical OhioHealth Rehabilitation HospitalChffjq32-97-3418 Telephone encounter Note* Telephone Encounter - Suzy Carrero MA - 08/22/2024 1:46 PM EDT Lmtcb to get 10/05 appointment rescheduled due to the provider not being in the office. [facility] WestHubxmr16-20-8847 Telephone encounter Note* Telephone Encounter - Maria Victoria Argueta - 08/15/2024 3:11 PM EDT Pt scheduled [facility] [id number] Miscellaneous Notes* Telephone Encounter - Maria Victoria Argueta - 08/15/2024 3:11 PM EDT Pt scheduled * Telephone Encounter - Gal Moreno - 08/09/2024 9:13 AM EDT Name of caller: Roro Contact phone number: [phone] Relationship to Patient: patient Provider: Any Practice: Dental Chief Complaint/Reason for Call: Patient cancelled exam for today. Please call to reschedule. Best time of day caller can be reached: any Patient advised that office/PCP has 24-48 business hours to return their call: no documented in this encounterSSelect Medical [facility] Rehabilitation HospitalTrhxxd79-26-2049 Telephone encounter Note* Telephone Encounter - Gal Moreno - 08/09/2024 9:13 AM EDT Name of caller: Roro Contact phone number: [phone] Relationship to Patient: patient Provider: Any Practice: Dental Chief Complaint/Reason for Call: Patient cancelled exam for today. Please call to reschedule. Best time of day caller can be reached: any Patient advised that office/PCP has 24-48 business hours to return their call: no [facility] WestMovjqm55-39-0403 Telephone encounter Note* Telephone Encounter - Afshin Dubose - 08/01/2024 3:39 PM EDT Patient called office to r/s OV. Patient was offered next soonest OV, 10/05. Patient agreed, placed on cancellation list for sooner appointment. Thanks [facility] WestIgfjsr39-67-3910 Miscellaneous Notes* Telephone Encounter - Afshin Dubose - 08/01/2024 3:39 PM EDT Patient called office to r/s OV. Patient was offered next soonest OV, 10/05. Patient agreed, placed on cancellation list for sooner appointment. Thanks * Telephone Encounter - Afshin Dubose - 07/25/2024 8:39 AM EDT Called and lvm for patient to contact office to r/s OV due to provider OOO. Sent Archetypes message Dryad for patient to respond to. Thanks documented in this [facility]06-16-2025 Telephone encounter Note* Telephone Encounter - Afshin Dubose - 07/25/2024 8:39 AM EDT Called and lvm for patient to contact office to r/s OV due to provider OOO. Sent Archetypes message Dryad for patient to respond to. Thanks [facility] WestReinfo50-57-0736 Hospital Discharge instructions* Discharge Instructions* Mattie Durbin DO - 06/26/2024 10:40 PM EDT Call to schedule an appointment with your primary care physician or gastroenterology for follow-up of your pancreatitis. If you have worsening pain or vomiting return to the ER. * Attachments The following attachments cannot be sent through Care Everywhere. * Pancreatitis Discharge Instructions (Mauritian) documented in this [facility]05-18-2025 Emergency department Note* Mattie Durbin DO - [...] [facility] (Per Emergency Physician): Interpretation [...] stop drinking alcohol. He willfollow-up with his returned case inspector and return to the ED for worsening symptoms. CRITICAL CARE TIME CONSULTS: None PROCEDURES: Unless otherwise noted below, none Procedures Patients symptoms are consistent with sepsis, severe sepsis, or septic shock (If yes use .sepsiscoremeasure): FINAL IMPRESSION 1. Alcohol-induced acute pancreatitis without infection or necrosis DISPOSITION Discharge 06/26/2024 10:38:49 PM PATIENT REFERRED TO: Tam Hughes DO [address] [facility] [id number] DISCHARGE MEDICATIONS: Discharge Medication List as of [...] Medical History: Diagnosis Date Addiction to drug ([facility]) ([facility]) Alcohol abuse Alcohol withdrawal syndrome without complication ([facility]) 06/27/2022 Alcohol withdrawal with inpatient treatment, uncomplicated ([facility]) 03/15/2022 GERD (gastroesophageal reflux disease) History of pancreatitis 01/07/2023 Hypertension Pancreatitis Seizures ([facility]) SVT (supraventricular tachycardia) ([facility]) Tourette syndrome [2] Past Surgical History: Procedure [...] 0 min Stress: Stress Concern Present (02/05/2024) [employer] [place] [employer] - Occupational Stress Questionnaire Feeling of Stress : To some extent Social Connections: Socially Isolated (02/05/2024) Social Connection and Isolation Panel [NHANES] Frequency of Communication with Friends and Family: More than three times a week Frequency of Social Gatherings with Friends and Family: More than three times a week Attends Latter-Day Services: Never Active Member of Clubs or [...] Durbin DO 06/27/24 0048 documented in this [facility]05-18-2025 Physician Emergency department Note* Mattie Durbin DO [...] Phys[facility] (Per Emergency Physician): Interpretation [...] stop drinking alcohol. He willfollow-up with his returned case inspector and return to the ED for worsening symptoms. CRITICAL CARE TIME CONSULTS: None PROCEDURES: Unless otherwise noted below, none Procedures Patients symptoms are consistent with sepsis, severe sepsis, or septic shock (If yes use .sepsiscoremeasure): FINAL IMPRESSION 1. Alcohol-induced acute pancreatitis without infection or necrosis DISPOSITION Discharge 06/26/2024 10:38:49 PM PATIENT REFERRED TO: Tam Hughes DO [address] [facility] [id number] DISCHARGE MEDICATIONS: Discharge Medication List as of [...] 06/27/2022 Alcohol withdrawal with inpatient treatment, uncomplicated ([facility]) 03/15/2022 GERD (gastroesophageal reflux disease) History of pancreatitis 01/07/2023 Hypertension Pancreatitis Seizures ([facility]) SVT (supraventricular tachycardia) ([facility]) Tourette syndrome [2] Past Surgical History: Procedure [...] 0 min Stress: Stress Concern Present (02/05/2024) [employer] [place] [employer] - Occupational Stress Questionnaire Feeling of Stress : To some extent Social Connections: Socially Isolated (02/05/2024) Social Connection and Isolation Panel [NHANES] Frequency of Communication with Friends and Family: More than three times a week Frequency of Social Gatherings with Friends and Family: More than three times a week Attends Latter-Day Services: Never Active Member of Clubs or [...] Year: Yes Mattie Durbin DO 06/27/24 0048 [facility] WestSkblos23-20-5952 Hospital Discharge instructions* Discharge Instructions* Fahad Cates [...] sent through Care Everywhere. * Chronic Pancreatitis (Mauritian) documented in this [facility]05-11-2025 Emergency department Note* Fahad Cates PA-C - 06/19/2024 7:23 PM EDT Emergency Department Encounter [facility] ED Pt Name: Roro Valdivia Birthdate [...] Medical History: Diagnosis Date Addiction to drug ([facility]) (HCC) Alcohol abuse Alcohol withdrawal syndrome without complication ([facility]) 06/27/2022 Alcohol withdrawal with inpatient treatment, uncomplicated ([facility]) 03/15/2022 GERD (gastroesophageal reflux disease) History of [...] 0 min Stress: Stress Concern Present (02/05/2024) [employer] [place] [employer] - Occupational Stress Questionnaire Feeling of Stress : To some extent Social Connections: Socially Isolated (02/05/2024) Social Connection and Isolation Panel [NHANES] Frequency of Communication with Friends and Family: More than three times a week Frequency of Social Gatherings with Friends and Family: More than three times a week Attends Latter-Day Services: Never Active Member of Clubs or [...] Physician EKG interpretation can be found in [facility] ED BEDSIDE ULTRASOUND: Performed by ED [...] PM PATIENT REFERRED TO: Tam Hughes DO [address] [facility] [address] Schedule an appointment as soon as possible [...] 06/19/2024 7:23 PM EDT Emergency Department Encounter [facility] ED Patient: Roro Valdivia : 1985 Date of Evaluation: 06/19/2024 ED Supervising Physician: oCry Adame DO I personally evaluated Roro Valdivia [...] ago he tried eating a hotdog and Mosotho fries which instantly made pain significantly worse [...] [employer] Cory Adame DO 06/19/24 3320 documented in this [facility]05-11-2025 Physician Emergency department Note* Fahad Cates PA-C - 06/19/2024 7:23 PM EDT Emergency Department Encounter [facility] ED Pt Name: Roro Valdivia Birthdate [...] Medical History: Diagnosis Date Addiction to drug ([facility]/HCC) (HCC) Alcohol abuse Alcohol withdrawal syndrome without complication ([facility]) 06/27/2022 Alcohol withdrawal with inpatient treatment, uncomplicated ([facility]) 03/15/2022 GERD (gastroesophageal reflux disease) History of pancreatitis 01/07/2023 Hypertension Pancreatitis Seizures ([facility]) SVT (supraventricular tachycardia) ([facility]) Tourette syndrome SURGICAL HISTORY Past Surgical History: [...] 0 min Stress: Stress Concern Present (02/05/2024) [employer] [place] [employer] - Occupational Stress Questionnaire Feeling of Stress : To some extent Social Connections: Socially Isolated (02/05/2024) Social Connection and Isolation Panel [NHANES] Frequency of Communication with Friends and Family: More than three times a week Frequency of Social Gatherings with Friends and Family: More than three times a week Attends Latter-Day Services: Never Active Member of Clubs or [...] Physician EKG interpretation can be found in [facility] ED BEDSIDE ULTRASOUND: Performed by ED [...] PM PATIENT REFERRED TO: Tam Hughes DO [address] [facility] [address] Schedule an appointment as soon as possible [...] Emergency Medicine Provider Fahad Cates PA-C 06/19/24 7332 Cosigned by Cory Adame DO at 06/20/2024 12:32 AM EDT [facility]Uzvngn97-37-4757 Physician Emergency department Note* Cory Adame DO - 06/19/2024 7:23 PM EDT Emergency Department Encounter [facility] ED Patient: Roro Valdivia : 1985 [...] ago he tried eating a hotdog and Mosotho fries which instantly made pain significantly worse [...] made by myself in conjunction with the KOY[employer]. For all further details of the patient's [...] for clarification.) Cory Adame DO [facility] Cory Adame DO 06/19/24 [address] Phone: [phone] Hospital Discharge instructions* Discharge Instructions* Genie Pavon [...] Care Everywhere. * Chronic Pancreatitis Discharge Instructions (Mauritian) documented in this [facility]05-10-2025 Emergency department Note* Genie Pavon PA-C - [...] Medical History: Diagnosis Date Addiction to drug ([facility]/HCC) (HCC) Alcohol abuse Alcohol withdrawal syndrome without complication ([facility]) 06/27/2022 Alcohol withdrawal with inpatient treatment, uncomplicated ([facility]) 03/15/2022 GERD (gastroesophageal reflux disease) History of pancreatitis 01/07/2023 Hypertension Pancreatitis Seizures ([facility]) SVT (supraventricular tachycardia) ([facility]) Tourette syndrome SURGICAL HISTORY Past Surgical History: [...] 0 min Stress: Stress Concern Present (02/05/2024) [employer] [place] [employer] - Occupational Stress Questionnaire Feeling of Stress : To some extent Social Connections: Socially Isolated (02/05/2024) Social Connection and Isolation Panel [NHANES] Frequency of Communication with Friends and Family: More than three times a week Frequency of Social Gatherings with Friends and Family: More than three times a week Attends Latter-Day Services: Never Active Member of Clubs or [...] - Normal ETHANOL IN SER/PLAS <10 Narrative: PALLIATIVE CARE NURSE PRACTITIONER depression is seen >100 mg/dL. NOTE: This [...] week I Genie Pavon PA-C am the risk control specialist of record. PROCEDURES: Unless otherwise noted below, none Procedures FINAL IMPRESSION 1. Alcohol-induced chronic pancreatitis (CMS/HCC) (HCC) DISPOSITION Discharge 06/18/2024 04:31:21 PM PATIENT REFERRED TO: [facility] ED [address] [facility] [address] Go to If symptoms worsen Tam Hughes DO [address] [place] [address] Schedule an appointment as soon as possible [...] Pavon PA-C 06/18/24 1706 documented in this [facility]05-10-2025 Physician Emergency department Note* Genie Pavon PA-C [...] Medical History: Diagnosis Date Addiction to drug ([facility]) ([facility]) Alcohol abuse Alcohol withdrawal syndrome without complication ([facility]) 06/27/2022 Alcohol withdrawal with inpatient treatment, uncomplicated ([facility]) 03/15/2022 GERD (gastroesophageal reflux disease) History of pancreatitis 01/07/2023 Hypertension Pancreatitis Seizures ([facility]) SVT (supraventricular tachycardia) ([facility]) Tourette syndrome SURGICAL HISTORY Past Surgical History: [...] 0 min Stress: Stress Concern Present (02/05/2024) [employer] [place] [employer] - Occupational Stress Questionnaire Feeling of Stress : To some extent Social Connections: Socially Isolated (02/05/2024) Social Connection and Isolation Panel [NHANES] Frequency of Communication with Friends and Family: More than three times a week Frequency of Social Gatherings with Friends and Family: More than three times a week Attends Latter-Day Services: Never Active Member of Clubs or [...] - Normal ETHANOL IN SER/PLAS <10 Narrative: PALLIATIVE CARE NURSE PRACTITIONER depression is seen >100 mg/dL. NOTE: This [...] week I Genie Pavon PA-C am the risk control specialist of record. PROCEDURES: Unless otherwise noted below, none Procedures FINAL IMPRESSION 1. Alcohol-induced chronic pancreatitis (CMS/HCC) (HCC) DISPOSITION Discharge 06/18/2024 04:31:21 PM PATIENT REFERRED TO: [facility] ED [address] [facility] [address] Go to If symptoms worsen Tam Hughes DO [address] [place] [id number] Schedule an appointment as soon as possible [...] Medicine Provider Genie Pavon PA-C 06/18/24 1706 [facility]Ciflrb35-47-8878 NotePA request submitted by [facility] referrals, in review. [facility]05-05-2025 Hospital Discharge instructions* Discharge Instructions* Donald Hill Jr., DO - 06/13/2024 12:30 AM EDT Thank you for choosing [facility] Emergency Department and allowing me to [...] sent through Care Everywhere. * Chronic Pancreatitis (Mauritian) * Gastritis Discharge Instructions (Mauritian) documented in this [facility]05-04-2025 Emergency department Note* Donald Hill Jr., DO [...] normal when he does have pancreatitis [SL] [facility] June 13, 2024 0028 Patient no vomiting [...] Medical History: Diagnosis Date Addiction to drug ([facility]) ([facility]) Alcohol abuse Alcohol withdrawal syndrome without complication ([facility]) 06/27/2022 Alcohol withdrawal with inpatient treatment, uncomplicated ([facility]) 03/15/2022 GERD (gastroesophageal reflux disease) History of pancreatitis 01/07/2023 Hypertension Pancreatitis Seizures ([facility]) SVT (supraventricular tachycardia) ([facility]) Tourette syndrome SURGICAL HISTORY Past Surgical History: [...] 0 min Stress: Stress Concern Present (02/05/2024) [employer] [place] [employer] - Occupational Stress Questionnaire Feeling of Stress : To some extent Social Connections: Socially Isolated (02/05/2024) Social Connection and Isolation Panel [NHANES] Frequency of Communication with Friends and Family: More than three times a week Frequency of Social Gatherings with Friends and Family: More than three times a week Attends Latter-Day Services: Never Active Member of Clubs or [...] Abnormal ETHANOL IN SER/PLAS 43 (*) Narrative: PALLIATIVE CARE NURSE PRACTITIONER depression is seen >100 mg/dL. NOTE: This [...] AM PATIENT REFERRED TO: Tam Hughes DO [address] [facility] [phone] DISCHARGE MEDICATIONS: New Prescriptions SUCRALFATE (CARAFATE) 1 [...] DO (electronically signed) Emergency Medicine Provider Donald Hlil Jr., DO 06/13/24 0031 documented in this [facility]05-04-2025 Physician Emergency department Note* Donald Hill Jr., [...] abdominal location Chronic pancreatitis, unspecified pancreatitis type ([facility]) Discussion/ MDM: Differential diagnosis includes but not [...] Medical History: Diagnosis Date Addiction to drug ([facility]) (HCC) Alcohol abuse Alcohol withdrawal syndrome without complication ([facility]) 06/27/2022 Alcohol withdrawal with inpatient treatment, uncomplicated ([facility]) 03/15/2022 GERD (gastroesophageal reflux disease) History of pancreatitis 01/07/2023 Hypertension Pancreatitis Seizures ([facility]) SVT (supraventricular tachycardia) ([facility]) Tourette syndrome SURGICAL HISTORY Past Surgical History: [...] 0 min Stress: Stress Concern Present (02/05/2024) [employer] [place] [employer] - Occupational Stress Questionnaire Feeling of Stress : To some extent Social Connections: Socially Isolated (02/05/2024) Social Connection and Isolation Panel [NHANES] Frequency of Communication with Friends and Family: More than three times a week Frequency of Social Gatherings with Friends and Family: More than three times a week Attends Latter-Day Services: Never Active Member of Clubs or [...] Abnormal ETHANOL IN SER/PLAS 43 (*) Narrative: PALLIATIVE CARE NURSE PRACTITIONER depression is seen >100 mg/dL. NOTE: This [...] AM PATIENT REFERRED TO: Tam Hughes DO [address] [facility] [phone] DISCHARGE MEDICATIONS: New Prescriptions SUCRALFATE (CARAFATE) 1 [...] Medicine Provider Donald Hill Jr., 06/13/24 0031 [facility]wwga54-15-2835 Emergency department Note* Josseline Weber MD - [...] Medical History: Diagnosis Date Addiction to drug ([facility]) ([facility]) Alcohol abuse Alcohol withdrawal syndrome without complication ([facility]) 06/27/2022 Alcohol withdrawal with inpatient treatment, uncomplicated ([facility]) 03/15/2022 GERD (gastroesophageal reflux disease) History of pancreatitis 01/07/2023 Hypertension Pancreatitis Seizures ([facility]) SVT (supraventricular tachycardia) ([facility]) Tourette syndrome SURGICAL HISTORY Past Surgical History: [...] Sexual Activity Alcohol use: Yes Comment: 03/16 maedlin daily Drug use: Not Currently Types: Cocaine, [...] 0 min Stress: Stress Concern Present (02/05/2024) [employer] [place] [employer] - Occupational Stress Questionnaire Feeling of Stress : To some extent Social Connections: Socially Isolated (02/05/2024) Social Connection and Isolation Panel [NHANES] Frequency of Communication with Friends and Family: More than three times a week Frequency of Social Gatherings with Friends and Family: More than three times a week Attends Latter-Day Services: Never Active Member of Clubs or [...] PM PATIENT REFERRED TO: Tam Hughes DO [address] [facility] [address] Call in 3 days DISCHARGE [...] gait. Times are approximate. documented in this [facility]04-26-2025 Emergency department Triage note* Roro Macias RN - 06/04/2024 3:35 PM EDT Pt seen recently, dx pancreatitis, sts sx ongoing with abd pain that worsens with eating/drinking, N/V. Referred to ER by Negative resp distress, positive full sentences, negative diaphoresis, positive steady gait. Times are approximate. [facility] WestRikwux93-12-2530 Physician Emergency department Note* Josseline Weber MD [...] Medical History: Diagnosis Date Addiction to drug ([facility]) ([facility]) Alcohol abuse Alcohol withdrawal syndrome without complication ([facility]) 06/27/2022 Alcohol withdrawal with inpatient treatment, uncomplicated ([facility]) 03/15/2022 GERD (gastroesophageal reflux disease) History of pancreatitis 01/07/2023 Hypertension Pancreatitis Seizures ([facility]) SVT (supraventricular tachycardia) ([facility]) Tourette syndrome SURGICAL HISTORY Past Surgical History: [...] 0 min Stress: Stress Concern Present (02/05/2024) [employer] [place] [employer] - Occupational Stress Questionnaire Feeling of Stress : To some extent Social Connections: Socially Isolated (02/05/2024) Social Connection and Isolation Panel [NHANES] Frequency of Communication with Friends and Family: More than three times a week Frequency of Social Gatherings with Friends and Family: More than three times a week Attends Latter-Day Services: Never Active Member of Clubs or [...] FINAL IMPRESSION 1. Alcohol-induced chronic pancreatitis (CMS/HCC) ([facility]) 2. Pain of upper abdomen 3. Acute on chronic pancreatitis (CMS/HCC) ([facility]) DISPOSITION Discharge 06/04/2024 05:49:26 PM PATIENT REFERRED TO: Tam Hughes DO [address] [facility] [phone] Call in 3 days DISCHARGE MEDICATIONS: Current [...] Emergency Medicine Provider Josseline Weber MD 06/04/241750 [facility] WestTtdlcs04-00-5454 Telephone encounter Note* Telephone Encounter - Erin [...] if symptoms worsen, verbalized understanding. Seema notified. [facility] WestGtfhhs40-19-2254 Miscellaneous Notes* Telephone Encounter - Erin Barbour [...] used: Abdominal Pain -ADULT-AH documented in this encounterSSelect Medical [facility] HospitalOsdqjd73-23-7321 Telephone encounter Note* Telephone Encounter - Mariely [...] happened once.) Protocols used: Abdominal Pain -ADULT-AH [facility] WestMgaemm44-26-1384 History of Present illness Narrative* Seema Hartley APRN - TAPE RULES PRINTING MACHINE OPERATOR - 06/01/2024 1:00 PM EDT Images from the original note were not included. [facility] - [address] [facility] [address] Dept: [phone] Dept Loc: [phone] Visit type: New Reason for Visit: New Patient (Acute on chronic pancreatitis (CMS/HCC) (HCC)) PCP: Tam Hughes, DO Assessment and Plan Diagnosis Plan 1. Acute on chronic pancreatitis (CMS/HCC) (HCC) [facility] [place] [facility] --This patient is referred by Mattie [...] recurrent major depressive disorder, without psychotic features ([facility]) 08/11/2023 Priority: Medium Severe alcohol use disorder [...] disease) 06/06/2018 Hypertension 06/06/2018 SVT (supraventricular tachycardia) ([facility]) 06/06/2018 Tourette syndrome 06/06/2018 Alcohol induced acute pancreatitis without necrosis or infection 03/29/2018 Past Medical History: Past Medical History: Diagnosis Date Addiction to drug ([facility]/HCC) (HCC) Alcohol abuse Alcohol withdrawal syndrome without complication ([facility]) 06/27/2022 Alcohol withdrawal with inpatient treatment, uncomplicated ([facility]) 03/15/2022 GERD (gastroesophageal reflux disease) History of pancreatitis 01/07/2023 Hypertension Pancreatitis Seizures ([facility]) SVT (supraventricular tachycardia) ([facility]) Tourette syndrome Past Surgical History: Past Surgical [...] Imaging/Testing: [facility] 1985 [id number] Exam Date/Time: 05/30/2024 22:45 Procedure: CT ABDOMEN [...] SALAS 1:07 PM 06/01/24 documented in this [facility] [facility]04-23-2025 Instructions* Patient Instructions* JOSÉ ANTONIO Harrison CNP - 06/01/2024 1:00 PM EDT --complete alcohol cessation --tobacco cessation --MRI abdomen --blood work to be completed --follow up after above is completed * Attachments The following attachments cannot be sent through Care Everywhere. * Chronic Pancreatitis (Mauritian) documented in this [facility]04-21-2025 Hospital Discharge instructions* Discharge Instructions* Mattie Durbin DO - 05/30/2024 11:58 PM EDT Take medications as prescribed for your chronic pancreatitis pain. Follow-up with GI for further management. Return to the ER for worsening symptoms or vomiting. * Attachments The following attachments cannot be sent through Care Everywhere. * Pancreatitis Discharge Instructions (Mauritian) documented in this [facility]04-21-2025 Emergency department Note* Mattie Durbin DO - [...] Medical History: Diagnosis Date Addiction to drug ([facility]/HCC) (HCC) Alcohol abuse Alcohol withdrawal syndrome without complication ([facility]) 06/27/2022 Alcohol withdrawal with inpatient treatment, uncomplicated ([facility]) 03/15/2022 GERD (gastroesophageal reflux disease) History of pancreatitis 01/07/2023 Hypertension Pancreatitis Seizures ([facility]) SVT (supraventricular tachycardia) (HCC) Tourette syndrome SURGICAL [...] 0 min Stress: Stress Concern Present (02/05/2024) [employer] [place] [employer] - Occupational Stress Questionnaire Feeling of Stress : To some extent Social Connections: Socially Isolated (02/05/2024) Social Connection and Isolation Panel [NHANES] Frequency of Communication with Friends and Family: More than three times a week Frequency of Social Gatherings with Friends and Family: More than three times a week Attends Latter-Day Services: Never Active Member of Clubs or [...] steatosis. Report Dictated on Electronically Signed By: iHtesh Nation MD Electronically Signed Date/Time: 05/30/2024 11:03 [...] Culture. Procedure Abnormality Status --------- ------ Complete Urinalysis[[id number]] Abnormal Final result Please view results for [...] 05/31/24 0200 Acute on chronic pancreatitis (CMS/HCC) ([facility]) The patient presented with chief complaint of [...] IMPRESSION 1. Acute on chronic pancreatitis (CMS/HCC) ([facility]) DISPOSITION Discharge 05/30/2024 11:48:08 PM PATIENT REFERRED TO: [facility] - [address] [facility] [address] DISCHARGE MEDICATIONS: Discharge Medication List as of [...] Denies N/V/D, fevers, dysuria. documented in this encounterSSelect Medical Ohio[facility] Rehabilitation HospitalCjkogg06-94-2093 Emergency department Triage note* Sully Choi RN - 05/30/2024 9:42 PM EDT Resp even and unlabored. Able to speak in full sentences. Ambulates without difficulty. Pt c/o leftflank pain x 5days. Denies N/V/D, fevers, dysuria. [facility] WestAdnjto23-38-6805 Physician Emergency department Note* Mattie Durbin DO [...] Medical History: Diagnosis Date Addiction to drug ([facility]) ([facility]) Alcohol abuse Alcohol withdrawal syndrome without complication ([facility]) 06/27/2022 Alcohol withdrawal with inpatient treatment, uncomplicated ([facility]) 03/15/2022 GERD (gastroesophageal reflux disease) History of pancreatitis 01/07/2023 Hypertension Pancreatitis Seizures ([facility]) SVT (supraventricular tachycardia) ([facility]) Tourette syndrome SURGICAL HISTORY Past Surgical History: [...] 0 min Stress: Stress Concern Present (02/05/2024) [employer] [place] [employer] - Occupational Stress Questionnaire Feeling of Stress : To some extent Social Connections: Socially Isolated (02/05/2024) Social Connection and Isolation Panel [NHANES] Frequency of Communication with Friends and Family: More than three times a week Frequency of Social Gatherings with Friends and Family: More than three times a week Attends Latter-Day Services: Never Active Member of Clubs or [...] Culture. Procedure Abnormality Status --------- ------ Complete Urinalysis[[id number]] Abnormal Final result Please view results for [...] IMPRESSION 1. Acute on chronic pancreatitis (CMS/HCC) ([facility]) DISPOSITION Discharge 05/30/2024 11:48:08 PM PATIENT REFERRED TO: [facility] - [address] [address] DISCHARGE MEDICATIONS: Discharge Medication List [...] Medicine Provider Mattie Durbin DO 05/31/24 [address] [place] [id number] Emergency department Note* Martine Guzman RN - 05/22/2024 2:03 PM EDT Abdominal pain Pancreatitis was seen 3 days ago and was told if pain got worse to come back. Now also having chest pain and kidney pain [facility] WestUhynoc94-31-9147 Emergency department Note* Judith Valles PA-C - 05/22/2024 2:03 PM EDT [facility] ED eMERGENCY dEPARTMENT eNCOUnter Pt Name: [...] a day freestanding emergency department somewhere in [place] 3 days ago.He states he was told [...] Medical History: Diagnosis Date Addiction to drug ([facility]) ([facility]) Alcohol abuse Alcohol withdrawal syndrome without complication ([facility]) 06/27/2022 Alcohol withdrawal with inpatient treatment, uncomplicated ([facility]) 03/15/2022 GERD (gastroesophageal reflux disease) History of pancreatitis 01/07/2023 Hypertension Pancreatitis Seizures ([facility]) SVT (supraventricular tachycardia) ([facility]) Tourette syndrome SURGICALHISTORY Past Surgical History: Procedure [...] 0 min Stress: Stress Concern Present (02/05/2024) [employer] [place] [employer] - Occupational Stress Questionnaire Feeling of Stress : To some extent Social Connections: Socially Isolated (02/05/2024) Social Connection and Isolation Panel [NHANES] Frequency of Communication with Friends and Family: More than three times a week Frequency of Social Gatherings with Friends and Family: More than three times a week Attends Latter-Day Services: Never Active Member of Clubs or [...] Culture. Procedure Abnormality Status --------- ------ Complete Urinalysis[[id number]] Please view results for these tests on [...] was seen at a freestanding ED in [place] 3 days ago. He has a history [...] Discharge 05/22/2024 05:08:12 PM PATIENT REFERRED TO: [facility] [address] [address] Schedule an appointment as soon [...] vomiting for up to 7 days. @[facility]([id number]:LAST:1)@ (Please note: Portions of this note were [...] pain and kidney pain documented in this [place] [id number] Physician Emergency department Note* Judith Valles PA-C - 05/22/2024 2:03 PM EDT [facility] ED eMERGENCY dEPARTMENT eNCOUnter Pt Name: [...] a day freestanding emergency department somewhere in [place] 3 days ago.He states he was told [...] Medical History: Diagnosis Date Addiction to drug ([facility]) ([facility]) Alcohol abuse Alcohol withdrawal syndrome without complication ([facility]) 06/27/2022 Alcohol withdrawal with inpatient treatment, uncomplicated ([facility]) 03/15/2022 GERD (gastroesophageal reflux disease) History of pancreatitis 01/07/2023 Hypertension Pancreatitis Seizures ([facility]) SVT (supraventricular tachycardia) ([facility]) Tourette syndrome SURGICALHISTORY Past Surgical History: Procedure [...] 0 min Stress: Stress Concern Present (02/05/2024) [employer] [place] [employer] - Occupational Stress Questionnaire Feeling of Stress : To some extent Social Connections: Socially Isolated (02/05/2024) Social Connection and Isolation Panel [NHANES] Frequency of Communication with Friends and Family: More than three times a week Frequency of Social Gatherings with Friends and Family: More than three times a week Attends Latter-Day Services: Never Active Member of Clubs or [...] Culture. Procedure Abnormality Status --------- ------ Complete Urinalysis[[id number]] Please view results for these tests on [...] was seen at a freestanding ED in [place] 3 days ago. He has a history [...] Discharge 05/22/2024 05:08:12 PM PATIENT REFERRED TO: [facility] [address] [address] Schedule an appointment as soon [...] vomiting for up to 7 days. @[facility]([id number]:LAST:1)@ (Please note: Portions of this note were completed with a voice recognition program. Efforts were made to edit thedictations but occasionally words and phrases are mis-transcribed.) Form [id number].[id number] Judith Valles PA-C (electronically signed) Emergency Medicine Provider Judith Valles PA-C 05/22/24 171 [address]Dbupbh04-84-1923 Telephone encounter Note* Telephone Encounter - Roma Mckenzie RN - 05/21/2024 4:17 PM EDT This [facility] RN called patient for follow up, voicemail received, message left. [address]Fibbyn77-90-8719 Miscellaneous Notes* Telephone Encounter - Roma Mckenzie RN - 05/21/2024 4:17 PM EDT This [facility] RN called patient for follow up, voicemail received, message left. documented in this encounterSSamuel [place] [address]Kgspdk69-62-7931 Telephone encounter Note* Telephone Encounter - Roma Mckenzie RN - 05/16/2024 12:15 PM EDT This [facility] RN called patient for follow up, voicemail received, message left. [address]Plemlw06-60-5116 Miscellaneous Notes* Telephone Encounter - Roma Mckenzie RN - 05/16/2024 12:15 PM EDT This [facility] RN called patient for follow up, voicemail received, message left. documented in this encounterSSelect Medical OhioHealth Rehabilitation HospitalLmsoqz32-85-8313 Emergency department Note* Ana Wang RN - 05/07/2024 4:26 PM EDT Pt states he drank alcohol 3 days ago and then drank this morning. [facility] WestHvfocu76-25-3895 Emergency department Note* Ana Wang RN - [...] otherwise acutely negative except as in the [place]. 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/HCC) (HCC) Alcohol abuse Alcohol withdrawal syndrome without complication ([facility]) 06/27/2022 Alcohol withdrawal with inpatient treatment, uncomplicated ([facility]) 03/15/2022 GERD (gastroesophageal reflux disease) History of pancreatitis 01/07/2023 Hypertension Pancreatitis Seizures ([facility]) SVT (supraventricular tachycardia) ([facility]) Tourette syndrome SURGICAL HISTORY Past Surgical History: [...] 0 min Stress: Stress Concern Present (02/05/2024) [employer] [place] [employer] - Occupational Stress Questionnaire Feeling of Stress : To some extent Social Connections: Socially Isolated (02/05/2024) Social Connection and Isolation Panel [NHANES] Frequency of Communication with Friends and Family: More than three times a week Frequency of Social Gatherings with Friends and Family: More than three times a week Attends Latter-Day Services: Never Active Member of Clubs or [...] dc PATIENT REFERRED TO: Tam Hughes DO [address] [place] [address] Schedule an appointment as soon as possible [...] Markie Lyons DO 05/07/241817 documented in this [facility]03-29-2025 Physician Emergency department Note* Markie Lyons DO [...] otherwise acutely negative except as in the [place]. PAST MEDICAL HISTORY Past Medical History: Diagnosis [...] 0 min Stress: Stress Concern Present (02/05/2024) [employer] [place] [employer] - Occupational Stress Questionnaire Feeling of Stress : To some extent Social Connections: Socially Isolated (02/05/2024) Social Connection and Isolation Panel [NHANES] Frequency of Communication with Friends and Family: More than three times a week Frequency of Social Gatherings with Friends and Family: More than three times a week Attends Latter-Day Services: Never Active Member of Clubs or [...] dc PATIENT REFERRED TO: Tam Hughes DO [address] [place] [address] Schedule an appointment as soon as possible [...] Emergency Medicine Provider Markie Lyons DO 05/07/248 [facility] WestXuuuzm48-63-6598 Telephone encounter Note* Telephone Encounter - Roma Mckenzie RN - 04/26/2024 2:16 PM EDT This [facility] RN called patient for follow up, voicemail received, message left. [address]Jwrpkj68-73-1284 Miscellaneous Notes* Telephone Encounter - Roma Mckenzie RN - 04/26/2024 2:16 PM EDT This [facility] RN called patient for follow up, voicemail received, message left. documented in this [address]15-[address]25 Telephone encounter Note* Telephone Encounter - Roma Mckenzie RN - 04/23/2024 12:42 PM EDT This [facility] RN called patient for follow up phone call, voicemail received, message left. [address]Fasefx06-72-6526 Miscellaneous Notes* Telephone Encounter - Roma Mckenzie RN - 04/23/2024 12:42 PM EDT This [facility] RN called patient for follow up phone call, voicemail received, message left. documented in this [place] [address]14-[address]25 Telephone encounter Note* Telephone Encounter - Seema Sumner LPN - 04/22/2024 9:22 AM EDT Unable to contact patient X2 [address]Gyxmpk16-15-8465 Miscellaneous Notes* Telephone Encounter - Seema Sumner LPN - 04/22/2024 9:22 AM EDT Unable to contact patient X2 * Telephone Encounter - Seema Sumner LPN - 04/21/2024 1:13 PM EDT S: Patient admitted to: [facility] 04/16/24 B: Discharged on : 04/20/24 A: Hospital follow up call initiated to discuss any medication changes, follow up appointments and discharge instructions: Acute recurrent pancreatitis R: No contact x 1 at : [phone] documented in this encounterSSelect Medical OhioHealth Rehabilitation HospitalAygixv68-40-7789 Telephone encounter Note* Telephone Encounter - Seema Sumner LPN - 04/21/2024 1:13 PM EDT S: Patient admitted to: [facility] 04/16/24 B: Discharged on : 04/20/24 A: Hospital follow up call initiated to discuss any medication changes, follow up appointments and discharge instructions: Acute recurrent pancreatitis R: No contact x 1 at : [phone] [facility] WestUflssy35-61-1722 Nurse Note* Jake Blair RN - 04/20/2024 2:17 PM EDT Discharge instructions reviewed with patient. Patient did not have any further concerns at this time. [facility] WestXostbj35-61-1080 Nurse Note* Jake Blair RN - 04/20/2024 [...] RN - 04/18/2024 12:21 PM EDT This [facility] RN saw patient on consult to [...] He refuses residential care and was at [facility] in the past. Patient is interested in Behavioral Health IOP. We reviewed the handout, and I circled the phone number. States he is willing to go 3 x week. Either staff or patient can call [phone] to schedule after discharge date is confirmed. Roro is an established patient at [facility] and agreeable to follow up. documented in this [facility]03-12-2025 Note* Care Coordination - VANITA Whitaker - [...] encouraged to call to set up appt. [facility] WestGkyvzn98-19-4812 Note* Care Coordination - VANITA Whitaker - [...] encouraged to call to set up appt. [facility] WestKipdmb24-84-6489 Miscellaneous Notes* Care Coordination - VANITA Whitaker [...] detox. Social work has requested for addition healthcare or medical consult to provide patient withresources. Social work will continue to follow. documented in this [facility]03-12-2025 Hospital Discharge instructions* Discharge Instructions* Louis Alexandre MD - 04/20/2024 10:57 AM EDT Please call [phone] to schedule appointment for the [facility] IOP program in [place] documented in this [address]12-2025 History of Present illness Narrative* Louis [...] 0 min Stress: Stress Concern Present (02/05/2024) [employer] [place] [employer] - Occupational Stress Questionnaire Feeling of Stress : To some extent Social Connections: Socially Isolated (02/05/2024) Social Connection and Isolation Panel [NHANES] Frequency of Communication with Friends and Family: More than three times a week Frequency of Social Gatherings with Friends and Family: More than three times a week Attends Latter-Day Services: Never Active Member of Clubs or [...] Patient will be provided number for the [facility] program to schedule appointment for IOP Louis Alexandre MD Addiction Medicine 04/20/2024 at 10:53 AM --50-- minutes were spent reviewing the patient's records, evaluating the patient, entering orders,coordinating care with the treatment team, and creating a progress note. Narrative portions of the note are written utilizing StepOut software. While every effort is made todictate clearly and proofread, errors in the dictation may still occur. If there are any questions regarding the dictation please do not hesitate to contact the author. * Ron Fonseca, JOSÉ ANTONIO - TAPE RULES PRINTING MACHINE OPERATOR - 04/19/2024 11:09 AM EDT Addiction Medicine [...] symptoms. Medical stabilization. Labs/tests/tasks to review: None. Medication Technician recommendations: None. Remaining medical management per primary team. Will follow. JOSÉ ANTONIO Jiménez CNP Addiction Medicine 04/19/2024 at 11:09 AM Note: Narrative portions of note written using StepOut dictation software. Efforts are made to dictate clearly and proofread but errors in dictation still may occur. Please reach out to author with any clarifying questions. * Nevaeh Howard DO - 04/19/2024 9:49 AM EDT Hospitalist Progress Note 04/19/2024 Subjective: Admit Date: 04/16/2024 PCP: Tam Hughes DO Room#: T2-491/W0-776 A BRIEF HOSPITAL COURSE: Per previous hospitalist's [...] Medical History: Diagnosis Date Addiction to drug ([facility]/HCC) (HCC) Alcohol abuse Alcohol withdrawal syndrome without complication ([facility]) 06/27/2022 Alcohol withdrawal with inpatient treatment, uncomplicated ([facility]) 03/15/2022 GERD (gastroesophageal reflux disease) History of pancreatitis 01/07/2023 Hypertension Pancreatitis Seizures ([facility]) SVT (supraventricular tachycardia) ([facility]) Tourette syndrome LABS: CBC: Recent Labs 04/17/2433804/18/2452604/19/24 [...] DO Division of Hospitalist Medicine Acute care [facility] * Summer Gómez - 04/18/2024 9:34 AM EDT Nutrition rescreen completed. Chart reviewed. Patient's diet advanced, monitor tolerance to diet. Patient to be monitored and followed by the diet it service technician. Dietitian available upon request. RALPH Everett * Gokul Sood DO - 04/18/2024 9:08 AM EDT Hospitalist Progress Note 04/18/2024 Subjective: Admit Date: 04/16/2024 PCP: Tam Hughes DO Room#: W7-727/W7-591 A BRIEF HOSPITAL COURSE: Roro is a [...] Medical History: Diagnosis Date Addiction to drug ([facility]/HCC) (HCC) Alcohol abuse Alcohol withdrawal syndrome without complication ([facility]) 06/27/2022 Alcohol withdrawal with inpatient treatment, uncomplicated ([facility]) 03/15/2022 GERD (gastroesophageal reflux disease) History of pancreatitis 01/07/2023 Hypertension Pancreatitis Seizures ([facility]) SVT (supraventricular tachycardia) ([facility]) Tourette syndrome LABS: CBC: Recent Labs 04/16/24 [...] Infante DO [place] Division of Hospitalist Medicine [facility] * Ron Fonseca, NURSE HEALTHCARE MANAGER - TAPE RULES PRINTING MACHINE OPERATOR - 04/18/2024 8:20 AM EDT Addiction Medicine [...] symptoms. Medical stabilization. Labs/tests/tasks to review: None. Medication Technician recommendations: None. Remaining medical management per primary team. Will follow. JOSÉ ANTONIO Jiménez CNP Addiction Medicine 04/18/2024 at 8:20 AM Note: Narrative portions of note written using StepOut dictation software. Efforts are made to dictate clearly and proofread but errors in dictation still may occur. Please reach out to author with any clarifying questions. * Gokul Barrie, - 04/17/2024 9:28 AM EDT Hospitalist Progress Note 04/17/2024 Subjective: Admit Date: 04/16/2024 PCP: Tam Hughes DO Room#: W7-357/W7-397 A BRIEF HOSPITAL COURSE: Roro is a [...] 75 mL/hr, Last Rate: 75 mL/hr (04/17/24 7792) Assessment Data: (CAT1) Reviewed 3 or more [...] Gokul Sood DO Division of Hospitalist Medicine [facility] documented in this [facility]03-12-2025 Hospital course Narrative* Nevaeh Howard DO - [...] Medical History: Diagnosis Date Addiction to drug ([facility]/HCC) (HCC) Alcohol abuse Alcohol withdrawal syndrome without complication ([facility]) 06/27/2022 Alcohol withdrawal with inpatient treatment, uncomplicated ([facility]) 03/15/2022 GERD (gastroesophageal reflux disease) History of pancreatitis 01/07/2023 Hypertension Pancreatitis Seizures ([facility]) SVT (supraventricular tachycardia) ([facility]) Tourette syndrome Procedures: None Hospital Course: See above. See discharge diagnoses list above and medication adjustments below in med rec.The patient is discharged in improved and stable condition. Consults: IP CONSULT TO ADDICTION MEDICINE IP CONSULT TO ADDICTION TREASURER Discharge Instructions: Diet: Dietary Orders (From admission, [...] Your Medications These medications were sent to [id number] - [place], [place] - [address] [address] [place] [address] acetaminophen 325 MG tablet calcium carbonate 500 MG chewable tablet senna-docusate sodium 8.6-50 MG tablet Recommended Follow-up: No follow-up provider specified. Complexity of Follow up: [] Moderate Complexity: follow up within 7-14 calendar days (58420) [x] Severe Complexity: follow up within 7 calendar days (64833) Follow up Testing, Pending results or Referrals [...] Nevaeh Howard DO Division of Hospitalist Medicine [facility] 04/20/2024, 2:12 PM documented in this [facility]03-12-2025 [facility] 04-19-2024 Nurse Note* Nevaeh Cortes RN - 04/19/2024 8:25 PM EDT Pt c/o pAIN IN ABD AND RATES AT 09/18. Pt medicated with dilaudid 0.5mg IV per PRN order. Pt reportsmedication effective [facility] WestCbegpi95-75-0364 Note* Care Coordination - Meron Landry RN - 04/18/2024 2:16 PM EDT PT HERE FOR ALCOHOL DETOX, + COVID. CURRENTLY ON RA. PO PHENOBARB TAPER. ADDICTION MED FOLLOWING. ANTICIPATE DISCHARGE TO HOME WITH MOM AND NO NEEDS. [facility] WestQfgjfy81-52-4449 Note* Care Coordination - Meron Landry RN - 04/18/2024 2:16 PM EDT PT HERE FOR ALCOHOL DETOX, + COVID. CURRENTLY ON RA. PO PHENOBARB TAPER. ADDICTION MED FOLLOWING. ANTICIPATE DISCHARGE TO HOME WITH MOM AND NO NEEDS. [facility] WestGvfpse74-85-1997 Nurse Note* Juany Rich RN - 04/18/2024 12:21 PM EDT This [facility] RN saw patient on consult to [...] He refuses residential care and was at [facility] in the past. Patient is interested in Behavioral Health IOP. We reviewed the handout, and I circled the phone number. States he is willing to go 3 x week. Either staff or patient can call [phone] to schedule after discharge date is confirmed. Ernst dey is an established patient at [facility] and agreeable to follow up. [facility] WestKaswhp15-91-9255 Note* Care Coordination - VANITA Whitaker - 04/18/2024 10:10 AM EDT Social work review of chart. Patient being followed by addiction medicine. On admission- patient wanting detox. Social work has requested for addition healthcare or medical consult to provide patient withresources. Social work will continue to follow. [id number]* Care Coordination - VANITA Whitaker - 04/18/2024 10:10 AM EDT Social work review of chart. Patient being followed by addiction medicine. On admission- patient wanting detox. Social work has requested for addition healthcare or medical consult to provide patient withresources. Social work will continue to follow. [id number] Consult note* Stone Ramsey MD - 04/17/2024 12:01 PM EDT Associated Order(s): IP CONSULT TO [facility]CTION [facility] Consult service H&P Admit Date: 04/16/2024 Primary [...] Medical History: Diagnosis Date Addiction to drug ([facility]/HCC) ([facility]) Alcohol abuse Alcohol withdrawal syndrome without complication ([facility]) 06/27/2022 Alcohol withdrawal with inpatient treatment, uncomplicated ([facility]) 03/15/2022 GERD (gastroesophageal reflux disease) History of pancreatitis 01/07/2023 Hypertension Pancreatitis Seizures ([facility]) SVT (supraventricular tachycardia) ([facility]) Tourette syndrome Past Surgical History: Procedure Laterality [...] 0 min Stress: Stress Concern Present (02/05/2024) [employer] [place] [facility] [employer] [facility] - Occupational Stress Questionnaire Feeling of Stress : To some extent Social Connections: Socially Isolated (02/05/2024) Social Connection and Isolation Panel [NHANES] Frequency of Communication with Friends and Family: More than three times a week Frequency of Social Gatherings with Friends and Family: More than three times a week Attends Latter-Day Services: Never Active Member of Clubs or [...] LORazepam, LORazepam, naloxone, ondansetron, potassium chloride CR @[email or web address] Plan 1. Alcohol use disorder severe with [...] MD Addiction Medicine 04/17/2024 at 12:02 PM [place] Phone: [phone]) 475-413003-09-2025 Consult note* Stone Ramsey MD - 04/17/2024 12:01 PM EDTAssociated Order(s): IP CONSULT TO [facility] Consult service H&P Admit Date: 04/16/2024 Primary [...] Medical History: Diagnosis Date Addiction to drug ([facility]) ([facility]) Alcohol abuse Alcohol withdrawal syndrome without complication ([facility]) 06/27/2022 Alcohol withdrawal with inpatient treatment, uncomplicated ([facility]) 03/15/2022 GERD (gastroesophageal reflux disease) History of pancreatitis 01/07/2023 Hypertension Pancreatitis Seizures ([facility]) SVT (supraventricular tachycardia) ([facility]) Tourette syndrome Past Surgical History: Procedure Laterality [...] 0 min Stress: Stress Concern Present (02/05/2024) [employer] [place] [facility] [employer] - Occupational Stress Questionnaire Feeling of Stress : To some extent Social Connections: Socially Isolated (02/05/2024) Social Connection and Isolation Panel [NHANES] Frequency of Communication with Friends and Family: More than three times a week Frequency of Social Gatherings with Friends and Family: More than three times a week Attends Latter-Day Services: Never Active Member of Clubs or [...] LORazepam, LORazepam, naloxone, ondansetron, potassium chloride CR @[email or web address]@ Plan 1. Alcohol use disorder severe with [...] 04/17/2024 at 12:02 PM documented in this [facility]03-08-2025 History and physical note* Ant Carty MD [...] 0 min Stress: Stress Concern Present (02/05/2024) [employer] [place] [facility] [employer] - Occupational Stress Questionnaire Feeling of Stress : To some extent Social Connections: Socially Isolated (02/05/2024) Social Connection and Isolation Panel [NHANES] Frequency of Communication with Friends and Family: More than three times a week Frequency of Social Gatherings with Friends and Family: More than three times a week Attends Latter-Day Services: Never Active Member of Clubs or [...] for symptomatic relief -As needed Ativan per [facility] protocol -IVF hydration -Trend lactic acid -AM [...] MD Division of Hospital Medicine [place] [place] Phone: [phone]) 249-559503-08-2025 [facility]03-08-2025 History and physical note* Ant Carty [...] 0 min Stress: Stress Concern Present (02/05/2024) [employer] [place] [employer] - Occupational Stress Questionnaire Feeling of Stress : To some extent Social Connections: Socially Isolated (02/05/2024) Social Connection and Isolation Panel [NHANES] Frequency of Communication with Friends and Family: More than three times a week Frequency of Social Gatherings with Friends and Family: More than three times a week Attends Latter-Day Services: Never Active Member of Clubs or [...] for symptomatic relief -As needed Ativan per [facility] protocol -IVF hydration -Trend lactic acid -AM [...] MD Division of Hospital Medicine [place] [place] documented in this [facility]03-08-2025 Emergency department Note* Nanyc Sultana DO - 04/16/2024 4:14 PM EST Emergency Department Encounter [facility] EMERGENCY DEPT Patient: Roro Valdivia : 1985 [...] contact the dictating provider for clarification.) Nancy Sultnaa DO Acute [facility] [employer] Nancy Sultana DO 04/18/24 1257 * Adrian [...] Medical History: Diagnosis Date Addiction to drug ([facility]) (HCC) Alcohol abuse Alcohol withdrawal syndrome without complication ([facility]) 06/27/2022 Alcohol withdrawal with inpatient treatment, uncomplicated ([facility]) 03/15/2022 GERD (gastroesophageal reflux disease) History of pancreatitis 01/07/2023 Hypertension Pancreatitis Seizures ([facility]) SVT (supraventricular tachycardia) ([facility]) Tourette syndrome SURGICAL HISTORY Past Surgical History: [...] 0 min Stress: Stress Concern Present (02/05/2024) [employer] [place] [employer] - Occupational Stress Questionnaire Feeling of Stress : To some extent Social Connections: Socially Isolated (02/05/2024) Social Connection and Isolation Panel [NHANES] Frequency of Communication with Friends and Family: More than three times a week Frequency of Social Gatherings with Friends and Family: More than three times a week Attends Latter-Day Services: Never Active Member of Clubs or [...] Abnormal ETHANOL IN SER/PLAS 331 (*) Narrative: PALLIATIVE CARE NURSE PRACTITIONER depression is seen >100 mg/dL. NOTE: This [...] 04/18/2024 1:05 PM EDT documented in this [facility]03-08-2025 Physician Emergency department Note* Nancy Sultana DO - 04/16/2024 4:14 PM EST Emergency Department Encounter [facility] EMERGENCY DEPT Patient: Roro Valdivia : 1985 [...] [employer] Nancy Sultana DO 04/18/24 1257 [place] Phone: [phone] 619-643703-08-2025 Physician Emergency department Note* Adrian Silva MD [...] Medical History: Diagnosis Date Addiction to drug ([facility]) (HCC) Alcohol abuse Alcohol withdrawal syndrome without complication ([facility]) 06/27/2022 Alcohol withdrawal with inpatient treatment, uncomplicated ([facility]) 03/15/2022 GERD (gastroesophageal reflux disease) History of pancreatitis 01/07/2023 Hypertension Pancreatitis Seizures ([facility]) SVT (supraventricular tachycardia) ([facility]) Tourette syndrome SURGICAL HISTORY Past Surgical History: [...] 0 min Stress: Stress Concern Present (02/05/2024) [employer] [place] [employer] - Occupational Stress Questionnaire Feeling of Stress : To some extent Social Connections: Socially Isolated (02/05/2024) Social Connection and Isolation Panel [NHANES] Frequency of Communication with Friends and Family: More than three times a week Frequency of Social Gatherings with Friends and Family: More than three times a week Attends Latter-Day Services: Never Active Member of Clubs or [...] Abnormal ETHANOL IN SER/PLAS 331 (*) Narrative: PALLIATIVE CARE NURSE PRACTITIONER depression is seen >100 mg/dL. NOTE: This [...] Sultana DO at 04/18/2024 1:05 PM EDT [id number] [facility]02-26-2025 Hospital course Narrative* Paulino Shelton MD - [...] Medical History: Diagnosis Date Addiction to drug ([facility]) ([facility]) Alcohol abuse Alcohol withdrawal syndrome without complication ([facility]) 06/27/2022 Alcohol withdrawal with inpatient treatment, uncomplicated ([facility]) 03/15/2022 GERD (gastroesophageal reflux disease) History of pancreatitis 01/07/2023 Hypertension Pancreatitis Seizures ([facility]) SVT (supraventricular tachycardia) ([facility]) Tourette syndrome Procedures: None Hospital Course: See [...] Complexity: follow up within 7-14 calendar days (57282) [x] Severe Complexity: follow up within 7 calendar days (83778) Follow up Testing, Pending results or Referrals [...] solutions 04/06/2024, 1:16 PM documented in this [facility]02-26-2025 History of Present illness Narrative* Dov Vanegas [...] meeting attendance. Patient returned to [facility] and self discontinued suboxone Follow up plan for addiction management discussed with patient: Patient does not wish to discuss MAT or aftercare. States he will call his addiction provider at [facility] to schedule follow up Has no intent [...] per primary team Labs/tests/tasks to review: N/A. Medication Technician to coordinate care with: N/A. A total [...] Date: 04/04/2024 PCP: Tam Hughes DO Room#: [id number] A BRIEF HOSPITAL COURSE: Roro is a [...] Medical History: Diagnosis Date Addiction to drug ([facility]) ([facility]) Alcohol abuse Alcohol withdrawal syndrome without complication ([facility]) 06/27/2022 Alcohol withdrawal with inpatient treatment, uncomplicated ([facility]) 03/15/2022 GERD (gastroesophageal reflux disease) History of pancreatitis 01/07/2023 Hypertension Pancreatitis Seizures ([facility]) SVT (supraventricular tachycardia) ([facility]) Tourette syndrome LABS: CBC: Recent Labs 04/04/24 [...] Paulino Shelton MD Division of Hospitalist Medicine [facility] * Dov Vanegas MD - 04/05/2024 8:00 [...] 04/04/2024 [facility] 1985 [id number] Date/Time: 04/04/2024 05:20 Procedure: CT ABDOMEN PELVIS [...] meeting attendance. Patient returned to [facility] and self discontinued suboxone Follow up plan for addiction management discussed with patient: Patient notes that he does not wish to discuss MAT or Aftercare at this time 2/2 abd pain and somnolence. ADM to continue to engage. Highly recommend [facility] (rehab for 90 days), has been successful at [facility] in the past. Unclear why he did not return to [facility] after his last chemical detox. Goal to [...] per primary team Labs/tests/tasks to review: N/A. Medication Technician to coordinate care with: N/A. A total of 35 minutes were spent reviewing the patient's records, evaluating the patient, entering orders, coordinating care with the treatment team, and creating this note. * Genet Carney OT - 04/04/2024 10:06 AM EST Images from the original note were not included. OCCUPATIONAL THERAPY [facility]'s Name/MRN: Roro Valdivia ([id number]) Date: 04/04/2024 Chart review completed and spoke to PT, per PT, pt is independent in ADLs, transfers and mobility. Pt with no concerns in returning home. Pt with no acute OT needs. Genet Carney OT * Wendi Rich, PT - 04/04/2024 9:18 AM EST Images from the original note were not included. PHYSICAL THERAPY [facility] Initial Evaluation Name/MRN: Roro Valdivia ([id number]) Evaluation Date: 04/04/2024 Date of : 1985 Admission Date: 04/04/2024 4:12 AM Age: 38 y.o. Room[facility]Bed: [facility] A Discharge Recommendation: Home with assist PRN [...] History: Diagnosis Date Addiction to drug (CMS/HCC) ([facility]) Alcohol abuse Alcohol withdrawal syndrome without complication ([facility]) 06/27/2022 Alcohol withdrawal with inpatient treatment, uncomplicated ([facility]) 03/15/2022 GERD (gastroesophageal reflux disease) History of pancreatitis 01/07/2023 Hypertension Pancreatitis Seizures ([facility]) SVT (supraventricular tachycardia) ([facility]) Tourette syndrome Past Surgical History: Past Surgical History: Procedure Laterality Date APPENDECTOMY Admission Diagnosis: Patient Active Problem List Diagnosis Date Noted Severe malnutrition (CMS/HCC) ([facility]) 02/06/2024 Alcohol withdrawal syndrome without complication ([facility]) 02/04/2024 Alcohol-induced acute pancreatitis, unspecified complication status 01/20/2024 Alcoholic intoxication without complication (CMS/HCC) ([facility]) 12/13/2023 Moderate malnutrition (CMS/HCC) (HCC) 11/20/2023 Acute [...] disease) 06/06/2018 Hypertension 06/06/2018 SVT (supraventricular tachycardia) ([facility]) 06/06/2018 Tourette syndrome 06/06/2018 Alcohol induced acute [...] Responsibilities: Independent Receives Help From: Family Active Loan Analyst: Yes Prior Level of Function Prior Level [...] collaboration with patient/family/other representatives. documented in this [facility]02-25-2025 NotePatient declined smoking cessation counseling. Accepting of handout with contact information for future reference.[facility]02-24-2025 Consult note * Guillermo Richardson MD - [...] freeto contact the dictating provider for clarification.) [facility]02-24-2025 Consult note* Guillermo Richardson MD - 04/04/2024 1:51 PM ESTAssociated Order(s): Inpatient consult to Gastroenterology Images from the original note were not included. GI CONSULTATION Patient: Roro Valdivia : 1985 Primary Care Physician: Tam Hughes DO Inpatient consult to Gastroenterology Consult performed by: Guillermo Richardson MD Consult ordered by: Christopher Arias MD REASON FOR CONSULTATION: Acute pancreatitis HISTORY OF PRESENT ILLNESS: Roro aVldivia is a 38 y.o. male with PMH [...] Alcohol abuse Alcohol withdrawal syndrome without complication ([facility]) 06/27/2022 Alcohol withdrawal with inpatient treatment, uncomplicated ([facility]) 03/15/2022 GERD (gastroesophageal reflux disease) History of pancreatitis 01/07/2023 Hypertension Pancreatitis Seizures (HCC) SVT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 Behavioral [facility], [place]: [phone], [place]: [phone] [facility] Behavioral Health, [place], [place] [phone] [facility], [place], [place] [phone] [facility] Health[place], [place] [phone], in, services, dual dx. Tx. with detox. RESIDENTIAL TREATMENT FACILITIES: [facility] House: inpt. Or outpt. - [phone] [facility], [place], [place] [phone] [facility], [place], [place] [phone] Community Assessment & Treatment Services (CATS) @ [facility] [phone] [facility] Residential tx., [place], [place] [phone] (admission coordinated by ADM Toby Vickers ext [phone]) [facility] [place], [place]: [phone]; Men's services inpt. & women services -Outpt. [facility], [place], [place] [phone] [facility], [place], [place] [phone] [facility], [place], [place] [phone] [facility], [place], [place] [phone] [facility], [place], [place] [phone] [facility] - [place] [phone] [facility], [place], [place] [phone] [place], [place] [phone] [facility], [facility] & detox & Sober living [phone] OTHER SERVICES: [employer] - [employer] Manager Service: [phone] [facility]: [phone] ext. [phone] Medicaid Health Coverage: [employer] JFS: [phone] [facility] WestVuvqck16-73-5246 Physician Emergency department Note* JOSÉ ANTONIO Mercedes [...] Medical History: Diagnosis Date Addiction to drug ([facility] ([facility]) Alcohol abuse Alcohol withdrawal syndrome without complication ([facility]) 06/27/2022 Alcohol withdrawal with inpatient treatment, uncomplicated ([facility]) 03/15/2022 GERD (gastroesophageal reflux disease) History of pancreatitis 01/07/2023 Hypertension Pancreatitis Seizures ([facility]) SVT (supraventricular tachycardia) ([facility]) Tourette syndrome SURGICAL HISTORY Past Surgical History: [...] 0 min Stress: Stress Concern Present (02/05/2024) [place] [employer] - Occupational Stress Questionnaire Feeling of Stress : To some extent Social Connections: Socially Isolated (02/05/2024) Social Connection and Isolation Panel [NHANES] Frequency of Communication with Friends and Family: More than three times a week Frequency of Social Gatherings with Friends and Family: More than three times a week Attends Latter-Day Services: Never Active Member of Clubs or [...] I also reviewed external records from [facility]. I discussed their care with [...] TIME None CONSULTS: IP CONSULT TO ADDICTION TREASURER PROCEDURES: Unless otherwise noted below, none Procedures Patients symptoms are consistent with sepsis, severe sepsis, or septic shock (If yes use .sepsiscoremeasure): no FINAL IMPRESSION 1. Pain of upper abdomen 2. Transaminitis 3. Alcohol-induced chronic pancreatitis (CMS/HCC) ([facility]) 4. Alcohol use disorder DISPOSITION Discharge 03/22/2024 04:39:01 PM PATIENT REFERRED TO: [facility] [address] [facility] [facility] [address] If symptoms worsen DISCHARGE MEDICATIONS: [...] Medicine Provider JOSÉ ANTONIO Mercedes CNP 03/22/24 9319 [facility] WestVsagzr86-73-7785 Telephone encounter Note* Telephone Encounter - Roma Mckenzie RN - 02/20/2024 4:11 PM EST Called patient for follow up, voicemail received, message left. [facility] WestDnzigp58-99-0441 Miscellaneous Notes* Telephone Encounter - Roma Mckenzie RN - 02/20/2024 4:11 PM EST Called patient for follow up, voicemail received, message left. documented in this encounterSSelect Medical OhioHealth Rehabilitation HospitalZrjcir58-16-3692 Nurse Note* Fay Lara RN - 02/08/2024 1:54 PM EST Claims ticket found in chart. Patient left without getting item. Message left on the cell number ofthe patient listed in the chart that the ticket is in security and he can retrieve his item from them. Number to the unit desk provide d for any further questions. [facility] WestUhocix14-44-8154 Nurse Note* Fay Lara RN - 02/08/2024 [...] items after he leaves the unit. Our guidance secretary has his things in hand and is [...] unit at 1310 via gurney from the [facility] ED. Patient admitted for ETOH detox, alcohol level 422 when he first arrived, then 193 prior to admit here. Patient tox screen positive forcocaine. Patient here in August, stated he never really stopped drinking. Admitted to doing cocainewhen drinking, a small amount. Multiple reports of how much patient is drinking, he told this fiction writer he is doing 1/2 gallon of [...] to monitor for safety. documented in this [facility]12-30-2024 Nurse Note* Fay Lara RN - 02/08/2024 [...] items after he leaves the unit. Our guidance secretary has his things in hand and is walking him down to discharge. His gait is steady and he is without complaint. [facility] [id number] Group counseling note* Group Note - Divine Lombardo - 02/08/2024 12:25 PM EST Department: [facility] ACTIV[facility] THERAPY Group Topic: Recreation Therapy [...] Roro Valdivia Date of : 1985 MR: [id number] Appearance: Good eye contact Affect: Appropriate Behavior: [...] without complication (HCC) Severe malnutrition (CMS/HCC) (HCC) [id number] Miscellaneous Notes* Group Note - Divine Lombardo - 02/08/2024 12:25 PM EST Department: [employer] THERAPY Group Topic: Recreation Therapy Group Date: [...] Roro Valdivia Date of : 1985 MR: [id number] Appearance: Good eye contact Affect: Appropriate Behavior: [...] program. Patient denied needing anything further from DIRECTOR OF OCCUPATIONAL THERAPY at the time. DIRECTOR OF OCCUPATIONAL THERAPY informed patient's nurse about conversation. * Care [...] been eating and has a weight loss. School Business Administrator up to see patient. This patient is [...] on 11/03/2022, patient was sent directly to [facility] for residential treatment. Patient reports that he was unable to go to [facility] due to being on Suboxone. Patient reports that he went to [facility] for 3 months. He reports that [...] attempt by overdose. Patient was sent to [facility] in [place] for stabilization. Patient has additional admissions to [facility]. Patient reports past history of suicide attempt [...] suboxone in October. Previously he was following [facility] Dr. Hilton however, he was having [...] Patient has history of residential treatment at [facility] and [facility] (he was unable to stay at [facility] due to being on Suboxone). Medical/Self-care Issues: [...] without any children and living alone in [place]. Patient reports he experiences housing instability and [...] reports he was born and raised in [place] by primarily his mother's adoptive parents. Patient [...] his GED while he was in the [facility] house. No reported post secondary education or vocational training. Patient reports he is not currently working. 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 Patient denies SI/SSD. Cultural/Spirituality/Leisure: Patient denies any cultural needs or concerns at the current time. Patient denies any mosque preference at the current time. Patient reports [...] was [facility] then [facility] in [place]. Patient has additional admissions to [facility]. Patient reports Hx of SI where he [...] on Zoloft. Patient most recently referred to [facility]. Hx of noncompliance with OP MH [...] attempt by overdose. Patient was sent to [facility] then ultimately [facility] in [place] for stabilization. Patient has additional admissions to [facility]. Patient reports past history of suicide attempt [...] in the hospital. Patient signed ARI and DIRECTOR OF OCCUPATIONAL THERAPY sent all information to agency in order to coordinate patient's direct transfer to program postdischarge in the hospital when ready. Patient encouraged to engage in all activities that are offered to them while they are on the unit.Patient report needing additional current time. Patient encouraged to seek out DIRECTOR OF OCCUPATIONAL THERAPY unit staff should they identify any additional [...] dictating provider for clarification. documented in this [facility]12-30-2024 Note* Care Coordination - HUSSAIN Toribio - 02/08/2024 11:10 AM EST Patient reports that he is unable to contact his stepmother in order to pick him up from the hospital. Asking for a bus pass. Peds has provided to patient in order for him to return home to gather his belongings to go to [facility]/sober living. [id number] Note* Care Coordination - HUSSAIN Toribio - 02/08/2024 11:10 AM EST Patient reports that he is unable to contact his stepmother in order to pick him up from the hospital. Asking for a bus pass. Peds has provided to patient in order for him to return home to gather his belongings to go to [facility]/sober living. [facility] [id number] [facility]12-30-2024 Hospital course Narrative* Nikky Escobar MD - 02/08/2024 10:59 AM EST Images from the original note were not included. ADDICTION MEDICINE 4E DETOX UNIT DISCHARGE SUMMARY __ Patient MRN Roro Valdivia [id number] 1985 Admit Date Discharge Date 02/04/2024 02/08/2024 [...] withdrawal and was hopefulfor continued sobriety with [facility], where Roro had previously attended and had [...] start before December 18, 2023. Follow Up [facility] [address] [place] [address] Go to For intake for PHP/sober living [...] 02/08/2024 3:00 PM EST Associated attestation - Carliots Orta MD - 02/08/2024 3:00 PM EST I saw the patient on the day of discharge and agree with the discharge plans and disposition as recorded by the fellow. I personally spent over 30 minutes in the discharge planning process. Carlitos Orta MD documented in this [facility]12-30-2024 Note* Care Coordination - HUSSAIN Toribio - [...] program. Patient denied needing anything further from [facility] at the time. HUSSAIN informed patient's nurse about conversation. [id number] Note* Care Coordination - HUSSAIN Toribio - 02/08/2024 10:34 AM EST DIRECTOR OF OCCUPATIONAL THERAPY saw patient to discuss aftercare plans and [...] program. Patient denied needing anything further from DIRECTOR OF OCCUPATIONAL THERAPY at the time. HUSSAIN informed patient's nurse about conversation. [employer] [id number] Nurse Note* Fay Lara RN - 02/08/2024 8:13 AM EST On first assessment Mr. Valdivia was resting in bed. He allowed this author to order fruit and Ensure plus for breakfast. He was not ready for any other food at this time. He was cooperative with morning assessment. He took his morning medications without issue. [id number] Nurse Note* Velma Forman RN - 02/07/2024 8:18 PM EST Pt alert and oriented, med compliant, pt denies SI/HI/AVH, NV&D. Pt complains of some anxiety, medicated with vistaril and trazodone for sleep. 2117- vistaril effective for anxiety, pt asleep at this time. Pt encouraged to update staff with any change in condition. Will monitor pt for safety. [facility]12-29-2024 Plan of care note* Care Plan - [...] getting chips or fruit in addition toensure. [facility]12-29-2024 History of Present illness Narrative* Reyes Pulliam [...] -Monitor vitals and electrolytes -Possible admission to located [facility] -Dietary consult, nutritional supplement - PT/OT/CM/SW - [...] Date: 02/04/2024 PCP: Tam Hughes DO Room#: E4-173/E4-465 A Brief Hospital course: Patient is a [...] Medical History: Diagnosis Date Addiction to drug ([facility]/HCC) ([facility]) Alcohol abuse Alcohol withdrawal syndrome without complication ([facility]) 06/27/2022 Alcohol withdrawal with inpatient treatment, uncomplicated ([facility]) 03/15/2022 GERD (gastroesophageal reflux disease) History of pancreatitis 01/07/2023 Hypertension Pancreatitis Seizures ([facility]) SVT (supraventricular tachycardia) ([facility]) Tourette syndrome LABS: CBC: Recent Labs 02/04/24210702/05/24 [...] Reyes Pulliam MD Division of Hospitalist Medicine [facility] * Nikky Escobar MD - 02/07/2024 10:17 [...] States last drink was approx 5 minutes [employer] MEMBER. Patient states history of seizures due to [...] hospital and will be his ride to [facility] after he picks up clothes from his mothers home Tolerating Effexor without side effects Remains hopeful for care at [facility], notes previously had sustained sobriety after admission [...] management discussed with patient: Plans to attend [facility]. Alcohol withdrawal Last use of aclohol was [...] symptoms. Medical stabilization. Labs/tests/tasks to review: None. Medication Technician to coordinate care with: IM. This patient [...] -Monitor vitals and electrolytes -Possible admission to [facility] -Dietary consult, nutritional supplement - PT/OT/CM/SW - [...] Date: 02/04/2024 PCP: Tam Hughes, DO Room#: E4-935/E4-484 A Brief Hospital course: Patient is a [...] Medical History: Diagnosis Date Addiction to drug ([facility]) ([facility]) Alcohol abuse Alcohol withdrawal syndrome without complication ([facility]) 06/27/2022 Alcohol withdrawal with inpatient treatment, uncomplicated ([facility]) 03/15/2022 GERD (gastroesophageal reflux disease) History of pancreatitis 01/07/2023 Hypertension Pancreatitis Seizures ([facility]) SVT (supraventricular tachycardia) ([facility]) Tourette syndrome LABS: CBC: Recent Labs 02/04/24 [...] Reyes Pulliam MD Division of Hospitalist Medicine [facility] * Luisa Kilgore RD - 02/06/2024 5:05 [...] loss Fluid Accumulation: No significant fluid accumulation Mental Health Nurse Strength: Not Performed Nutrition Assessment: Per 02/03 [...] week, @ home was involved in a [place] where he would drink, then when no [...] On: Kcal/kg Weight Used for Energy Requirements: [place] Weight for Energy Calculation (kg): 84 kg Total Energy Requirements (kcals/day): 2100 - 2520 kcals/day Weight Used for Protein Requirements: [place] Weight in Kg Used for Protein Requirements: 84 kg Estimated Total Protein (g/day): 92- 101gm protein/day Estimated Daily Total Fluid (ml/day): 2100 - 2520 mls/day Nutrition Related Findings: frequent emesis, ETOH abuse, large weight loss [employer] MEMBER; 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 .64, low [...] Body Weight: 122 kg (270 lb) ([facility] 08/10/23) % Weight Change (Calculated): -13 [place] Body Weight (lbs) (Calculated): 184 lbs [place] Body Weight (Kg) (Calculated): 84 kg % [place] Body Weight (Calculated): 127.7 % BMI (kg/m2) [...] diet Luisa Kilgore RD Contact: via [facility] chat or office *[phone] * Nikky Escobar MD - 02/06/2024 9:46 [...] States last drink was approx 5 minutes AB[employer] MEMBER. Patient states history of seizures due to [...] of Effexor Is hopeful for care at [facility], notes previously had sustained sobriety after admission [...] discussed with patient: Hopeful for admission to [facility]. Alcohol withdrawal Last use of aclohol was [...] symptoms. Medical stabilization. Labs/tests/tasks to review: None. Medication Technician to coordinate care with: None. This patient [...] discussion of treatment plan documented in this [facility]12-28-2024 Nurse Note* Velma Forman RN - 02/06/2024 [...] in condition. Will monitor pt for safety. [facility] [id number] Plan of care note* Care Plan - [...] been eating and has a weight loss. School Business Administrator up to see patient. This patient is cooperative with supliments ordered. [facility] [id number] Consult note* Luisa Kilgore RD - 02/06/2024 [...] loss Fluid Accumulation: No significant fluid accumulation Mental Health Nurse Strength: Not Performed Nutrition Assessment: Per 02/03 [...] week, @ home was involved in a [place] where he would drink, then when no [...] On: Kcal/kg Weight Used for Energy Requirements: [place] Weight for Energy Calculation (kg): 84 kg Total Energy Requirements (kcals/day): 2100 - 2520 kcals/day Weight Used for Protein Requirements: [place] Weight in Kg Used for Protein Requirements: 84 kg Estimated Total Protein (g/day): 92- 101gm protein/day Estimated Daily Total Fluid (ml/day): 2100 - 2520 mls/day Nutrition Related Findings: frequent emesis, ETOH abuse, large weight loss [employer] MEMBER; 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 .64, low [...] Body Weight: 122 kg (270 lb) ([facility] 08/10/23) % Weight Change (Calculated): -13 [place] Body Weight (lbs) (Calculated): 184 lbs [place] Body Weight (Kg) (Calculated): 84 kg % [place] Body Weight (Calculated): 127.7 % BMI (kg/m2) [...] diet Luisa Kilgore RD Contact: via [facility] chat or office *[phone] [facility] [id number] Consult note* Luisa LICHA Kilgore - 02/06/2024 [...] loss Fluid Accumulation: No significant fluid accumulation Mental Health Nurse Strength: Not Performed Nutrition Assessment: Per 02/03 [...] week, @ home was involved in a [place] where he would drink, then when no [...] On: Kcal/kg Weight Used for Energy Requirements: [place] Weight for Energy Calculation (kg): 84 kg Total Energy Requirements (kcals/day): 2100 - 2520 kcals/day Weight Used for Protein Requirements: [place] Weight in Kg Used for Protein Requirements: 84 kg Estimated Total Protein (g/day): 92- 101gm protein/day Estimated Daily Total Fluid (ml/day): 2100 - 2520 mls/day Nutrition Related Findings: frequent emesis, ETOH abuse, large weight loss [employer]NC[employer] MEMBER; 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 .64, low [...] Body Weight: 122 kg (270 lb) ([facility] 08/10/23) % Weight Change (Calculated): -13 [place] Body Weight (lbs) (Calculated): 184 lbs [place] Body Weight (Kg) (Calculated): 84 kg % [place] Body Weight (Calculated): 127.7 % BMI (kg/m2) [...] current diet Luisa Kilgore RD Contact: via [email or web address] chat or office *[phone] * Stone Ramsey MD - 02/05/2024 11:10 AM ESTAssociated Order(s): IP CONSULT TO ADDICTION MEDICINE [facility] Consult service H&P Admit Date: 02/04/2024 Primary Care Physician: Tam Hughes DO ] Chief Complaint Patient presents with Alcohol Problem Patient presents to ED for detox. States he normally drinks approx 5 one liter bottles of liquor per day. States last drink was approx 5 minutes AB[employer] MEMBER. Patient states history of seizures due to [...] Diagnosis Date Alcohol withdrawal syndrome without complication ([facility]) 06/27/2022 Alcohol withdrawal with inpatient treatment, uncomplicated ([facility]) 03/15/2022 GERD (gastroesophageal reflux disease) History of pancreatitis 01/07/2023 Hypertension Pancreatitis Seizures ([facility]) SVT (supraventricular tachycardia) ([facility]) Tourette syndrome Past Surgical History: Procedure Laterality [...] 0 min Stress: Stress Concern Present (01/21/2024) [place] [place] [employer] - Occupational Stress Questionnaire Feeling of Stress : To some extent Social Connections: Socially Isolated (01/22/2024) Social Connection and Isolation Panel [NHANES] Frequency of Communication with Friends and Family: More than three times a week Frequency of Social Gatherings with Friends and Family: More than three times a week Attends Latter-Day Services: Never Active Member of Clubs or [...] eGFR >90.0 >60.0 mL/min/1.73m*2 Blood gas, venous ([facility] and [facility]) Collection Time: 02/04/24 9:08 PM [...] ODT OR ondansetron, polyethylene glycol (PEG) 3350 @[id number]@ Plan . 1. Alcohol use disorder severe [...] of cocaine use d/o including strokes and [place] 3 opioid use disorder the patient used to be on Suboxone however he is not displaying any withdrawal symptoms at this point Will keep an eye on Patient is not stable Stone Ramsey MD, MD Addiction Medicine 02/05/2024 at 11:11 AM documented in this [facility]12-28-2024 Nurse Note* Feli May RN - 02/06/2024 [...] and eats one bite of food weekly. [facility] [id number] Plan of care note* Care Plan - Velma Forman RN - 02/06/2024 6:05 AM EST Pt able to verbalize signs/symptoms of withdrawal . [facility] [id number] Nurse Note* Velma Forman RN - 02/05/2024 9:10 PM EST Pt asleep at this time. [place] [id number] Nurse Note* Velma Forman RN - 02/05/2024 9:10 PM EST Pt medicated with vistaril for anxiety. 2210- Vistaril effective for anxiety, pt asleep at this time. [facility] [id number] Nurse Note* Velma Forman RN - 02/05/2024 8:10 PM EST Pt alert and oriented, med compliant, pt denies SI/HI/AVH, NV&D. Pt states he feels he has beenhaving panic attacks on and off for the past few hours. Pts CIWA 14 Dr[address] Ramsey updated and new orders received. Pt encouraged to update staff with any change in condition. Will monitor pt for safety. [facility] [id number] Nurse Note* Seema Loredo RN - 02/05/2024 1:30 PM EST Patient arrived to the unit at 1310 via gurney from the [facility] ED. Patient admitted for ETOH detox, alcohol level 422 when he first arrived, then 193 prior to admit here. Patient tox screen positive forcocaine. Patient here in August, stated he never really stopped drinking. Admitted to doing cocainewhen drinking, a small amount. Multiple reports of how much patient is drinking, he told this fiction writer he is doing 1/2 gallon of [...] signed. Will continue to monitor for safety. [facility] [id number] Note* Care Coordination - HUSSAIN Toribio - [...] on 11/03/2022, patient was sent directly to [facility] for residential treatment. Patient reports that he was unable to go to [facility] due to being on Suboxone. Patient reports that he went to [facility] for 3 months. He [...] attempt by overdose. Patient was sent to [facility] in [place] for stabilization. Patient has additional admissions to [facility]. Patient reports past history of suicide attempt [...] suboxone in October. Previously he was following [facility] Dr[facility] Hilton however, he was having [...] Patient has history of residential treatment at [facility] and [facility] (he was unable to stay at [facility] due to being on Suboxone). Medical/Self-care Issues: [...] without any children and living alone in [place]. Patient reports he experiences housing instability and [...] reports he was born and raised in [place] by primarily his mother's adoptive parents. Patient [...] currently working. 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 Patient denies SI/SSD. Cultural/Spirituality/Leisure: Patient denies any cultural needs or concerns at the current time. Patient denies any mosque preference at the current time. Patient reports [...] was [facility] then [facility] in [place]. Patient has additional admissions to [facility]. Patient reports Hx of SI where he [...] on Zoloft. Patient most recently referred to [facility]. Hx of noncompliance with OP MH [...] attempt by overdose. Patient was sent to [facility] then ultimately [facility] in [place] for stabilization. Patient has additional admissions to [facility]. Patient reports past history of suicide attempt [...] in the hospital. Patient signed ARI and DIRECTOR OF OCCUPATIONAL THERAPY sent all information to agency in order to coordinate patient's direct transfer to program postdischarge in the hospital when ready. Patient encouraged to engage in all activities that are offered to them while they are on the unit.Patient report needing additional current time. Patient encouraged to seek out DIRECTOR OF OCCUPATIONAL THERAPY unit staff should they identify any additional [...] to contact the dictating provider for clarification. [facility] [id number] Note* Care Coordination - HUSSAIN Toribio - [...] on 11/03/2022, patient was sent directly to [facility] for residential treatment. Patient reports that he was unable to go to [facility] due to being on Suboxone. Patient reports that he went to [facility] for 3 months. He [...] attempt by overdose. Patient was sent to [facility] in [place] for stabilization. Patient has additional admissions to [facility]. Patient reports past history of suicide attempt [...] suboxone in October. Previously he was following [facility] however, he was having [...] Patient has history of residential treatment at [facility] and [facility] (he was unable to stay at [facility] due to being on Suboxone). Medical/Self-care Issues: [...] without any children and living alone in [place]. Patient reports he experiences housing instability and [...] reports he was born and raised in [place] by primarily his mother's adoptive parents. Patient [...] his GED while he was in the [facility]. No reported post secondary education or vocational training. Patient reports he is not currently working. 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 Patient denies SI/SSD. Cultural/Spirituality/Leisure: Patient denies any cultural needs or concerns at the current time. Patient denies any mosque preference at the current time. Patient reports [...] was [facility] then [facility] in [place]. Patient has additional admissions to [facility]. Patient reports Hx of SI where he [...] on Zoloft. Patient most recently referred to [facility]. Hx of noncompliance with OP MH [...] attempt by overdose. Patient was sent to [facility] then ultimately [facility] in [place] for stabilization. Patient has additional admissions to [facility]. Patient reports past history of suicide attempt [...] Plan: Patient reports plans to engage at [facility] for PHP/sober living program postdischarge in the hospital. Patient signed ARI and HUSSAIN sent all information to agency in order to coordinate patient's direct transfer to program postdischarge in the hospital when ready. Patient encouraged to engage in all activities that are offered to them while they are on the unit.Patient report needing additional current time. Patient encouraged to seek out DIRECTOR OF OCCUPATIONAL THERAPY unit staff should they identify any additional [...] to contact the dictating provider for clarification. [facility] [id number] Hospital Discharge instructions* Discharge Instr - Other [...] National Suicide Prevention Hotline if needed at: 3-481-602-ORVB (6865) Please call the following number should you have questions regarding your discharge or aftercare appointments: 4 [facility] documented in this [facility]12-27-2024 Emergency department Note* Elsy Jason RN - 02/05/2024 12:55 PM EST Transport here to take patient to [facility], RN called for protective services. [facility] [id number] Emergency department Note* Elsy Jason RN - [...] 02/04/2024 12:27 PM EST Emergency Department Encounter [facility] EMERGENCY DEPT Patient: Roro Valdivia : 1985 [...] are mis-transcribed.) Francisco Landa MD Acute Care [facility] Francisco Landa MD 02/04/24 1250 * Beatris Argueta PA-C - 02/04/2024 12:27 PM EST Emergency Department Encounter [facility] EMERGENCY DEPT Patient: Roro Valdivia : 1985 [...] States last drink was approx 5 minutes [employer]. Patient states history of seizures due to [...] 0 min Stress: Stress Concern Present (01/21/2024) [place] [place] [employer] - Occupational Stress Questionnaire Feeling of Stress : To some extent Social Connections: Socially Isolated (01/22/2024) Social Connection and Isolation Panel [NHANES] Frequency of Communication with Friends and Family: More than three times a week Frequency of Social Gatherings with Friends and Family: More than three times a week Attends Latter-Day Services: Never Active Member of Clubs or [...] Abnormal ETHANOL IN SER/PLAS 422 (*) Narrative: PALLIATIVE CARE NURSE PRACTITIONER depression is seen >100 mg/dL. NOTE: This [...] Department Physician in the absence of a publications designer. Please see Myriam for interpretation of EKG. [...] on file Beatris Argueta PA-C Acute Care [facility] Beatris Argueta PA-C 02/06/24 0908 documented in this [facility]12-27-2024 Emergency department Note* Martha Su RN - 02/05/2024 12:21 PM EST Report given to RN on 4E room 410. RN stated to leave left AC IV in place. Pt put in for transport [address]27-2024 Emergency department Note* Elsy Jason RN - 02/05/2024 11:37 AM EST Protective services at bedside with patient for belongings check and wanding. [address]27-2024 Emergency department Note* Elsy Jason RN - 02/05/2024 11:27 AM EST RN changed patient into 2 gowns and socks, belongings placed in 1 bag for officers to do belongingscheck. Patient read and signed rules of detox. [address]27-2024 Consult note* Stone Ramesy MD - 02/05/2024 11:10 AM EST Associated Order(s): IP CONSULT TO [facility] Consult service H&P Admit Date: 02/04/2024 Primary Care Physician: Tam Hughes ] Chief Complaint Patient presents with Alcohol Problem Patient presents to ED for detox. States he normally drinks approx 5 one liter bottles of liquor per day. States last drink was approx 5 minutes [employer]. Patient states history of seizures due to [...] 0 min Stress: Stress Concern Present (01/21/2024) [place] [employer] - Occupational Stress Questionnaire Feeling of Stress : To some extent Social Connections: Socially Isolated (01/22/2024) Social Connection and Isolation Panel [NHANES] Frequency of Communication with Friends and Family: More than three times a week Frequency of Social Gatherings with Friends and Family: More than three times a week Attends Latter-Day Services: Never Active Member of Clubs or [...] ODT OR ondansetron, polyethylene glycol (PEG) 3350 @[id number]@ Plan . 1. Alcohol use disorder severe [...] of cocaine use d/o including strokes and [place] 3 opioid use disorder the patient used to be on Suboxone however he is not displaying any withdrawal symptoms at this point Will keep an eye on Patient is not stable Stone Ramsey MD, MD Addiction Medicine 02/05/2024 at 11:11 AM [facility] [employer] Phone: [phone] History and physical note* Israel Garcia DO [...] Diagnosis Date Alcohol withdrawal syndrome without complication ([facility]) 06/27/2022 Alcohol withdrawal with inpatient treatment, uncomplicated ([facility]) 03/15/2022 GERD (gastroesophageal reflux disease) History of pancreatitis 01/07/2023 Hypertension Pancreatitis Seizures ([facility]) SVT (supraventricular tachycardia) ([facility]) Tourette syndrome Past Surgical History: Past Surgical [...] 0 min Stress: Stress Concern Present (01/21/2024) [place] [employer] - Occupational Stress Questionnaire Feeling of Stress : To some extent Social Connections: Socially Isolated (01/22/2024) Social Connection and Isolation Panel [NHANES] Frequency of Communication with Friends and Family: More than three times a week Frequency of Social Gatherings with Friends and Family: More than three times a week Attends Latter-Day Services: Never Active Member of Clubs or [...] Division of Hospital Medicine Inpatient Medical Services/[place] [employer] Phone: [phone] [facility]12-27-2024 History and physical note* Israel Garcia DO [...] 0 min Stress: Stress Concern Present (01/21/2024) [place] [employer] - Occupational Stress Questionnaire Feeling of Stress : To some extent Social Connections: Socially Isolated (01/22/2024) Social Connection and Isolation Panel [NHANES] Frequency of Communication with Friends and Family: More than three times a week Frequency of Social Gatherings with Friends and Family: More than three times a week Attends Latter-Day Services: Never Active Member of Clubs or [...] DO Division of Hospital Medicine [place] Medical [place] [place] in this [address]26-2024 Emergency department Note* Antony Lester RN - 02/04/2024 11:09 PM EST Etoh detox admit. Responds to verbal. A/ox4. Report received from lunch covered nurse. Vss and updated. Oriented to call hooper. No distress. [address]26-2024 Emergency department Note* Maria Isabel Juarez RN - 02/04/2024 7:17 PM EST Report given to ana SHI [address]26-2024 Emergency department Note* Maria Isabel Juarez RN - 02/04/2024 6:54 PM EST Pt given warm blanket [address]26-2024 Emergency department Note* Maria Isabel Juarez RN - 02/04/2024 4:48 PM EST Provider messaged on pt behalf requesting something for detox [address]26-2024 Emergency department Note* Maria Isabel Juarez RN - 02/04/2024 2:57 PM EST Pt able to give urine sample in urinal at this time [address]26-2024 Emergency department Note* Maria Isabel Juarez RN - 02/04/2024 2:51 PM EST Pt refusing urinal. Deion santillan came into room to assist this RN with urine sample. Pt stating he can't urinate at this time. [facility]12-26-2024 Emergency department Note* Maria Isabel Juarez RN - 02/04/2024 1:16 PM EST Pt was max assist into bed with this RN, Brown SHI, Yosef EKG and Steve EKG. Seizure precautions initiated. Bed rails padded, suction connected, all safety maintained. Step mother at bed side. Pt refusing to remove clothing at this time. Pt wants to go to detox [facility]12-26-2024 Physician Emergency department Note* Francisco Landa MD - 02/04/2024 12:27 PM EST Emergency Department Encounter [facility] EMERGENCY DEPT Patient: Roro Valdivia : 1985 [...] are mis-transcribed.) Francisco Landa MD Acute Care [facility] Francisco Landa MD 02/04/24 [address] [employer] Phone: [phone] Physician Emergency department Note* Beatris Argueta PA-C - 02/04/2024 12:27 PM EST Emergency Department Encounter [facility] EMERGENCY DEPT Patient: Roro Valdivia : 1985 [...] States last drink was approx 5 minutes [employer]. Patient states history of seizures due to [...] 06/27/2022 Alcohol withdrawal with inpatient treatment, uncomplicated ([facility]) 03/15/2022 GERD (gastroesophageal reflux disease) History of pancreatitis 01/07/2023 Hypertension Pancreatitis Seizures ([facility]) SVT (supraventricular tachycardia) ([facility]) Tourette syndrome Past Surgical History: Procedure Laterality [...] 0 min Stress: Stress Concern Present (01/21/2024) [place] [place] [employer] - Occupational Stress Questionnaire Feeling of Stress : To some extent Social Connections: Socially Isolated (01/22/2024) Social Connection and Isolation Panel [NHANES] Frequency of Communication with Friends and Family: More than three times a week Frequency of Social Gatherings with Friends and Family: More than three times a week Attends Latter-Day Services: Never Active Member of Clubs or [...] Abnormal ETHANOL IN SER/PLAS 422 (*) Narrative: PALLIATIVE CARE NURSE PRACTITIONER depression is seen >100 mg/dL. NOTE: This [...] Department Physician in the absence of a publications designer. Please see Epiphany for interpretation of EKG. [...] medicine, recommended medical admission, was admitted [place] [facility] [place] MDM elements: Diagnostic tests considered [...] [facility] [employer] Beatris Argueta PA-C 02/06/24 0908 [employer] Phone: [phone] Telephone encounter Note* Telephone Encounter - Roma Mckenzie RN - 01/29/2024 5:40 PM EST Called for post discharge follow up, no answer, voicemail left. [employer]12-20-2024 Miscellaneous Notes* Telephone Encounter - Roma Mckenzie RN - 01/29/2024 5:40 PM EST Called for post discharge follow up, no answer, voicemail left. documented in this [facility]SSelect [facility] HospitalFbmdze95-71-3341 Nurse Note* Jade Gutierrez RN - 01/26/2024 4:13 PM EST Patient verbalized understanding of all discharge instructions including medications, follow up appointments, s&s of infection, and when to call the physician. [facility]Biytme25-[facility]-7439 Nurse Note* Jade Gutierrez RN - 01/26/2024 4:13 PM EST Patient verbalized understanding of all discharge instructions including medications, follow up appointments, s&s of infection, and when to call the physician. * Roam Mckenzie RN - 01/22/2024 12:21 PM EST This [facility] RN saw patient on floor today [...] peer recovery coaches. He is familiar with [facility] in which he receives services through [...] distress at this time. documented in this encounterSSelect Medical Ohio[facility] Rehabilitation HospitalFxtqhz26-06-3227 [facility] 01-26-2024 Hospital Discharge instructions* Discharge Instr - Activity* Donald Julian DO - 01/26/2024 10:45 AM EST As tolerated * Attachments The following attachments cannot be sent through Care Everywhere. * Pancreatitis Discharge Instructions ([place]aur[place]) * Alcohol Use Disorder ED (Mauritian) * Nausea and Vomiting, Adult (Mauritian) documented in this [facility]12-17-2024 History of Present illness Narrative* Donald Julian DO - 01/26/2024 10:23 AM EST Hospitalist Progress Note 01/26/2024 Subjective: Admit Date: 01/20/2024 PCP: Tam Hughes DO Room#: [id number] A Brief Hospital course: Roro is a [...] Diagnosis Date Alcohol withdrawal syndrome without complication ([facility]) 06/27/2022 Alcohol withdrawal with inpatient treatment, uncomplicated ([facility]) 03/15/2022 GERD (gastroesophageal reflux disease) History of pancreatitis 01/07/2023 Hypertension Pancreatitis Seizures ([facility]) SVT (supraventricular tachycardia) ([facility]) Tourette syndrome Adult diet Full liquid 24HR [...] Date: 01/20/2024 PCP: Tam Hughes DO Room#: [id number] A Brief Hospital course: Roro is a [...] Hypertension Pancreatitis Seizures (HCC) SVT (supraventricular tachycardia) ([facility]) Tourette syndrome Adult diet Full liquid 24HR [...] Relation: Mother Donald De Jesusreta Division of [facility] Medicine [place]patient Medical Services[place] [place] * William Sparks MD - 01/24/2024 11:21 AM EST Hospitalist Progress Note 01/24/2024 Subjective: Admit Date: 01/20/2024 PCP: Tam Hughes DO Room#: [id number] A BRIEF HOSPITAL COURSE: Roro is a [...] William Sparks MD Division of Hospitalist Medicine [facility] * Christo Fagan DO - 01/23/2024 1:36 PM EST Hospitalist Progress Note 01/23/2024 Subjective: Admit Date: 01/20/2024 PCP: Tam Hughes DO Room#: [id number] A BRIEF HOSPITAL COURSE: Roro is a [...] Hypertension Pancreatitis Seizures (HCC) SVT (supraventricular tachycardia) ([facility]) Tourette syndrome LABS: CBC: Recent Labs 01/21/24135 [...] Todd DO Rylan Division of Hospitalist Medicine [facility] * Nikky Escobar MD - 01/22/2024 1:42 [...] be monitored and followed by the diet it service technician. Dietitian available upon request. RALPH Chun * William Sparks MD - 01/22/2024 8:51 AM EST Hospitalist Progress Note 01/22/2024 Subjective: Admit Date: 01/20/2024 PCP: Tam Hughes DO Room#: [id number] A BRIEF HOSPITAL COURSE: Roro is a [...] William Sparks MD Division of Hospitalist Medicine [facility] * William Sparks MD - 01/21/2024 8:19 AM EST Hospitalist Progress Note 01/21/2024 Subjective: Admit Date: 01/20/2024 PCP: Tam Hughes DO Room#: [id number] A BRIEF HOSPITAL COURSE: Roro is a [...] Medicine [facility] documented in this [facility]12-17-2024 Plan of care note* Care Plan - [...] Goal: Nutritional status is improving Outcome: Progressing [facility] WestReupqj12-88-6974 Miscellaneous Notes* Care Plan - Benja Davis [...] appropriate resources Outcome: Progressing documented in this [facility]12-16-2024 Plan of care note* Care Plan - Ajay Knight RN - 01/25/2024 6:03 AM EST Problem: Pain - Adult Goal: Verbalizes/displays adequate comfort level or baseline comfort level Outcome: Progressing Problem: Safety - Adult Goal: Free from fall injury Outcome: Progressing Problem: Discharge Planning Goal: Discharge to home or other facility with appropriate resources Outcome: Progressing [facility] WestYuahii92-88-9549 Plan of care note* Care Plan - Megha Murrieta RN - 01/24/2024 4:21 PM EST Problem: Pain - Adult Goal: Verbalizes/displays adequate comfort level or baseline comfort level Outcome: Progressing Problem: Safety - Adult Goal: Free from fall injury Outcome: Progressing Problem: Discharge Planning Goal: Discharge to home or other facility with appropriate resources Outcome: Progressing [facility] WestNbiddn41-49-9713 Plan of care note* Care Plan - Ajay Knight RN - 01/24/2024 5:36 AM EST Problem: Pain - Adult Goal: Verbalizes/displays adequate comfort level or baseline comfort level Outcome: Progressing Problem: Safety - Adult Goal: Free from fall injury Outcome: Progressing Problem: Discharge Planning Goal: Discharge to home or other facility with appropriate resources Outcome: Progressing [facility] WestUrhhqg55-92-8504 Plan of care note* Care Plan - Megha Murrieta RN - 01/23/2024 5:54 PM EST Problem: Pain - Adult Goal: Verbalizes/displays adequate comfort level or baseline comfort level Outcome: Progressing Problem: Safety - Adult Goal: Free from fall injury Outcome: Progressing Problem: Discharge Planning Goal: Discharge to home or other facility with appropriate resources Outcome: Progressing [facility]12-13-2024 Plan of care note* Care Plan - Amada Bajwa RN - 01/22/2024 6:25 PM EST Problem: Safety - Adult Goal: Free from fall injury Outcome: Progressing Problem: Pain - Adult Goal: Verbalizes/displays adequate comfort level or baseline comfort level Outcome: Not Progressing Problem: Discharge Planning Goal: Discharge to home or other facility with appropriate resources Outcome: Not Progressing [facility]12-13-2024 Note* Care Coordination - VANITA Phillips - [...] reported no needs for SW to address. [facility]12-13-2024 Note* Care Coordination - VANITA Phillips - [...] reported no needs for SW to address. [facility] WestLyiiyt90-06-3785 Nurse Note* Roma Mckenzie RN - 01/22/2024 12:21 PM EST This [facility] RN saw patient on floor today [...] peer recovery coaches. He is familiar with [facility] in which he receives services through them including housing referrals and knows how to obtaina PRC on his own he states. First Step handout given and I also discussed Vivitrol with patient andprovided him a handout. Patient agrees to follow up phone calls. [facility] WestSebhhh20-21-1708 Plan of care note* Care Plan - Maryana Fitzgerald LPN - 01/22/2024 5:18 AM EST Problem: Pain - Adult Goal: Verbalizes/displays adequate comfort level or baseline comfort level Outcome: Progressing Problem: Safety - Adult Goal: Free from fall injury Outcome: Progressing Problem: Discharge Planning Goal: Discharge to home or other facility with appropriate resources Outcome: Progressing [facility] WestDikyks01-68-8313 Plan of care note* Care Plan - Megha Murrieta RN - 01/21/2024 5:55 PM EST Problem: Pain - Adult Goal: Verbalizes/displays adequate comfort level or baseline comfort level Outcome: Progressing Problem: Safety - Adult Goal: Free from fall injury Outcome: Progressing Problem: Discharge Planning Goal: Discharge to home or other facility with appropriate resources Outcome: Progressing [facility] WestDoeuzv40-29-8392 Consult note* Britney Perea APRN - ISAEL [...] Last seen one month ago when in [facility] for similar reasons Labs: AST 163 ALT [...] [x] Chem Dep IOP: CD IOP through [facility] [x] Detoxifications: several. [x] 12 Step Meetings: in the past. [] Medication Assisted Treatment: denies. Psychiatric History: Current Psychiatrist: [facility] in the past, none currently Current [...] options towards Recovery Britney Perea APRN DNP [facility] Addiction Team + Ana [employer] Work Phone: [phone]) 412-476612-12-2024 Consult note* JOSÉ ANTONIO Benavidez CNP - [...] Last seen one month ago when in [facility] for similar reasons Labs: AST 163 ALT [...] [x] Chem Dep IOP: CD IOP through [facility] [x] Detoxifications: several. [x] 12 Step Meetings: in the past. [] Medication Assisted Treatment: denies. Psychiatric History: Current Psychiatrist: [facility] in the past, none currently Current [...] options towards Recovery Britney Perea APRN, DNP [facility] Addiction Team + documented in this encounterSSelect Medical OhioHealth Rehabilitation HospitalZfawnu13-78-6654 Plan of care note* Care Plan - Cherelle Santillan RN - 01/21/2024 3:57 AM EST Problem: Pain - Adult Goal: Verbalizes/displays adequate comfort level or baseline comfort level Outcome: Progressing Problem: Safety - Adult Goal: Free from fall injury Outcome: Progressing Problem: Discharge Planning Goal: Discharge to home or other facility with appropriate resources Outcome: Progressing [facility] WestNpafpq64-60-9433 Nurse Note* Cherelle Santillan RN - 01/21/2024 1:30 AM EST Pt. On unit. BP remains elevated at 160/114. MD made aware and are okay with BP at present time. [facility] WestBqwism40-99-3723 Emergency department Note* Blank Sharif RN - 01/20/2024 11:26 PM EST Pt c/o 7/10 abdominal pain. Last dose of morphine 3 hours, ordered q4 hours. Messaged provider for orders. No new orders placed by provider. at11:34 PM [facility] WestAgjilz62-19-9024 Emergency department Note* Blank Sharif RN - [...] 01/20/2024 11:28 AM EST Emergency Department Encounter [facility] EMERGENCY DEPT Patient: Roro Valdivia : 1985 [...] 0 min Stress: Stress Concern Present (12/14/2023) [place] [employer] - Occupational Stress Questionnaire Feeling of Stress : Very much Social Connections: Socially Isolated (12/14/2023) Social Connection and Isolation Panel [NHANES] Frequency of Communication with Friends and Family: Once a week Frequency of Social Gatherings with Friends and Family: More than three times a week Attends Latter-Day Services: Never Active Member of Clubs or [...] gross facial drooping. No obvious neurologic deficits. Mental Health Nurse strength symmetrical. Moves all 4 extremities spontaneously. [...] Department Physician in the absence of a publications designer. see their note for interpretation of EKG. [...] New Prescriptions No medications on file @[facility]([id number]:LAST:1)@ (Please note: Portions of this note were completed with a voice recognition program. Efforts were made to edit the dictations but occasionally words and phrases are mis-transcribed.) Form [id number].J.[id number] Kev Carballo PA-C Acute Care [facility] Kev Carballo PA-C 01/20/24 1547 [...] Calvin Stephens MD 01/20/241956 documented in this [facility]12-11-2024 Emergency department Note* Blank Sharif RN - [...] current placement, thx. UpdatedED charge on this. [facility] WestRcoxge03-98-9440 Emergency department Note* Blank Sharif RN - 01/20/2024 9:15 PM EST Pt ambulated to bathroom independently with IV pole with a steady gait. Back to bed with no distress with exertion. Chest rise equal, axo x4. No needs expressed at this time. [facility] WestAbfznt64-55-4353 Nurse Note* Blank Sharif RN - 01/20/2024 7:40 PM EST PT stating he is having a panic attack, pacing in room, c/o difficulty breathing and panic. CIWA 28on assessment, medicated per order. Pt stating relief within minutes. Bolus hung. Pt asked to return to bed, ambulated with a steady gate. Siderail up x1,no distress at this time. [facility] WestZjdgno75-35-0131 History and physical note* Latonya Horton MD [...] 0 min Stress: Stress Concern Present (12/14/2023) [place] [employer] - Occupational Stress Questionnaire Feeling of Stress : Very much Social Connections: Socially Isolated (12/14/2023) Social Connection and Isolation Panel [NHANES] Frequency of Communication with Friends and Family: Once a week Frequency of Social Gatherings with Friends and Family: More than three times a week Attends Latter-Day Services: Never Active Member of Clubs or [...] Division of Hospitalist Medicine [facility] [employer] Phone: [phone] [facility]12-11-2024 History and physical note* Latonya Horton MD [...] 0 min Stress: Stress Concern Present (12/14/2023) [place] [employer] - Occupational Stress Questionnaire Feeling of Stress : Very much Social Connections: Socially Isolated (12/14/2023) Social Connection and Isolation Panel [NHANES] Frequency of Communication with Friends and Family: Once a week Frequency of Social Gatherings with Friends and Family: More than three times a week Attends Latter-Day Services: Never Active Member of Clubs or [...] at 4:36 PM Division of Hospitalist Medicine [facility] documented in this [facility]12-11-2024 Emergency department Note* Savanna Carvalho RN - 01/20/2024 3:46 PM EST Pt medicated per maxi [facility] WestRcqeyl14-86-4919 Physician Emergency department Note* Kev Carballo PA-C - 01/20/2024 11:28 AM EST Emergency Department Encounter [facility] EMERGENCY DEPT Patient: Roro Valdivia : 1985 [...] 06/27/2022 Alcohol withdrawal with inpatient treatment, uncomplicated ([facility]) 03/15/2022 GERD (gastroesophageal reflux disease) History of pancreatitis 01/07/2023 Hypertension Pancreatitis Seizures ([facility]) SVT (supraventricular tachycardia) ([facility]) Tourette syndrome Past Surgical History: Procedure Laterality [...] 0 min Stress: Stress Concern Present (12/14/2023) [place] [place] [employer] - Occupational Stress Questionnaire Feeling of Stress : Very much Social Connections: Socially Isolated (12/14/2023) Social Connection and Isolation Panel [NHANES] Frequency of Communication with Friends and Family: Once a week Frequency of Social Gatherings with Friends and Family: More than three times a week Attends Latter-Day Services: Never Active Member of Clubs or [...] gross facial drooping. No obvious neurologic deficits. Mental Health Nurse strength symmetrical. Moves all 4 extremities spontaneously. [...] Department Physician in the absence of a publications designer. see their note for interpretation of EKG. [...] New Prescriptions No medications on file @[facility]([id number]:LAST:1)@ (Please note: Portions of this note were completed with a voice recognition program. Efforts were made to edit the dictations but occasionally words and phrases are mis-transcribed.) Form [id number] Kev Carballo PA-C [facility] Kev Carballo PA-C 01/20/24 1547 Cosigned by Calvin Stephens MD at 01/20/2024 7:57 PM EST [facility] Emergency department Note* Calvin Stephens MD - 01/20/2024 11:28 AM EST Emergency Department Encounter [facility] EMERGENCY DEPT Patient: Roro Valdivia : 1985 [...] MD 01/20/24 1532 Calvin Stephens MD 01/20/241956 [place] Phone: [phone]) 586-968511-29-2024 Emergency department Note* Gracy Dyer DO - [...] 0 min Stress: Stress Concern Present (12/14/2023) [employer] [place] [employer] - Occupational Stress Questionnaire Feeling of Stress : Very much Social Connections: Socially Isolated (12/14/2023) Social Connection and Isolation Panel [NHANES] Frequency of Communication with Friends and Family: Once a week Frequency of Social Gatherings with Friends and Family: More than three times a week Attends Latter-Day Services: Never Active Member of Clubs or [...] AM PATIENT REFERRED TO: Tam Hughes DO [address] [facility] [phone] Call in 3 days DISCHARGE MEDICATIONS: Discharge [...] to 7 days., Starting Thu01/08/2024, Until Thu01/15/2024 [id number], Normal (Comment: Please note this report has [...] bloody. Denies any fever/ chills. documented in [facility]11-29-2024 Emergency department Triage note* Sully Rivers [...] emesis being bloody. Denies any fever/ chills. [facility]unpcz76-63-5635 Physician Emergency department Note* Gracy Dyer DO [...] 0 min Stress: Stress Concern Present (12/14/2023) [place] [place] [employer] - Occupational Stress Questionnaire Feeling of Stress : Very much Social Connections: Socially Isolated (12/14/2023) Social Connection and Isolation Panel [NHANES] Frequency of Communication with Friends and Family: Once a week Frequency of Social Gatherings with Friends and Family: More than three times a week Attends Latter-Day Services: Never Active Member of Clubs or [...] AM PATIENT REFERRED TO: Tam Hughes DO [address] [place] [phone] Call in 3 days DISCHARGE MEDICATIONS: Discharge [...] to 7 days., Starting Thu01/08/2024, Until Thu01/15/2024 [id number], Normal (Comment: Please note this report has [...] Medicine Provider Gracy Dyer DO 01/08/24 0820 [place] Phone: 1(851) 877-441311-07-2024 History of Present illness Narrative* Stone Ramsey MD - 12/17/2023 12:16 PM EST Chief complaint Chief Complaint Patient presents with Alcohol Intoxication Brought in by his mother from home. He was recently at [facility] for some time. They discontinued his [...] EST Hospitalist Progress Note 12/17/2023 9:14 AM [phone]: Please page me for patient care issues. [phone]: Please page [facility] night Hospitalist for any issues. Subjective: Admit Date: 12/13/2023 PCP: Tam Hughes, Room#: N3357/N3-354 A Interval History: Patient seen and examined 38-year-old male past medical history of alcohol use disorder, alcohol withdrawal seizure, pancreatitis, GERD, hypertension, SVT, smoking history, depression, admitted in November 2023 at [facility] following pancreatitis/abnormal LFT, hepatitis panel negative, [...] tachycardia) (HCC) Tourette syndrome Adult diet Regular @[id number]@ Medications: desvenlafaxine, 50 mg, Oral, Daily folic [...] was made to ensureaccuracy; however, inadvertent computerized sugar chipper machine operator errors may be present. Maxwell Esposito MD [...] loss Fluid Accumulation: No significant fluid accumulation Mental Health Nurse Strength: Not Performed Patient Summary: Patient with [...] requesting detox. Patient recently discharged 11/27 from [facility] for EtOH withdrawal, pancreatitis. At that [...] was always drinking. RD observed breakfast tray [id number]% intake. Pt reports enjoying Vanilla Ensure and would like to keep them coming while admitted. Reports UBW 260#, with no recent weight changes. CBW via bedscale 256#. Denies n/v/d/c, chewing or swallowing issues. Estimated Daily Nutrient Needs: Energy Requirements Based On: Kcal/kg Weight Used for Energy Requirements: [place] Weight for Energy Calculation (kg): 73 kg Total Energy Requirements (kcals/day): 5552-5712 kcal/day (25-30) Weight Used for Protein Requirements: [place] Weight in Kg Used for Protein Requirements: 73 kg Estimated Total Protein (g/day): 80-95 g/day (1.1-1.3) Estimated Daily Total Fluid (ml/day): 9853-6249 ml/day Nutrition Related Findings: Froylan: 19. I&O: [...] soon to determine Lizeth Randall RD Contact: *[phone] * Stone Ramsey MD - 12/16/2023 10:24 AM EST Chief complaint Chief Complaint Patient presents with Alcohol Intoxication Brought in by his mother from home. He was recently at [facility] for some time. They discontinued his [...] EST Hospitalist Progress Note 12/16/2023 8:41 AM [phone]: Please page me for patient care issues. [phone]: Please page [facility] night Hospitalist for any issues. Subjective: Admit Date: 12/13/2023 PCP: Tam Hughes, Room#: N3-357/N3-357 A Interval History: Patient seen and examined 38-year-old male past medical history of alcohol use disorder, alcohol withdrawal seizure, pancreatitis, GERD, hypertension, SVT, smoking history, depression, admitted in November 2023 at [facility] following pancreatitis/abnormal LFT, hepatitis panel negative, [...] tachycardia) (HCC) Tourette syndrome Adult diet Regular @[id number]@ Medications: desvenlafaxine, 50 mg, Oral, Daily folic [...] was made to ensureaccuracy; however, inadvertent computerized sugar chipper machine operator errors may be present. Maxwell Esposito MD Division of Hospitalist Medicine Acute Care [facility] PAGER: [facility] chat * Fatuma Hess APRN - TAPE RULES PRINTING MACHINE OPERATOR - 12/15/2023 1:42 PM EST [facility] Behavioral Health Department of Psychiatry Nurse Practitioner Note *Please contact Manager Financial Reporting Psychiatry Listed in Epic On-Call Finder Thu-Thu: From 1700 - 0800 and on Thursday & Thursday* TODAY'S DATE: 12/15/23 ADMISSION DATE: 12/13/2023 Hospital Day: 2 IDENTIFYING INFORMATION Name: Roro Valdivia : 1985 Consulting Practitioner: SEBASTIEN Zambrano SUBJECTIVE: CHIEF COMPLAINT: CC: Chief Complaint Patient presents with Alcohol Intoxication Brought in by his mother from home. He was recently at [facility] for some time. They discontinued his [...] 38 y.o., [facility] (HCC) on 12/13/2023. PMH of alcohol withdrawal seizures, alcohol withdrawal syndrome, panic attacks/anxiety, history of pancreatitis, polysubstance abuse, GERD, tourette's and SVT. Pt with recent admission to [facility] (11/16- 11/27) withelevated LFTs, at that time [...] take Xanax. Discussed OP follow up with [facility], states he canno longer see Dr. [...] mg, 50 mg, Oral, Daily, Fatuma Hess, NURSE HEALTHCARE MANAGER - TAPE RULES PRINTING MACHINE OPERATOR, 50 mgat 12/15/23 0940 doxepin (SINEquan) capsule [...] mg, 16.2 mg, Oral, Q4H, Ron Fonseca, NURSE HEALTHCARE MANAGER - TAPE RULES PRINTING MACHINE OPERATOR polyethylene glycol (PEG) 3350 (Miralax) packet 17 g, 17 g, Oral, Daily PRN, Ant Carty MD risperiDONE (RisperDAL) tablet 0.5 mg, 0.5 mg, Oral, Nightly, Fatuma Hess, NURSE HEALTHCARE MANAGER - TAPE RULES PRINTING MACHINE OPERATOR, 0.5 mg at 12/14/232014 thiamine (Vitamin B1) [...] Diagnosis Date Alcohol withdrawal syndrome without complication ([facility]) 06/27/2022 Alcohol withdrawal with inpatient treatment, uncomplicated ([facility]) 03/15/2022 GERD (gastroesophageal reflux disease) History of pancreatitis 01/07/2023 Hypertension Pancreatitis Seizures ([facility]) SVT (supraventricular tachycardia) ([facility]) Tourette syndrome Family Psychiatric and Medical History: [...] More than three times a week Attends Latter-Day Services: Never Active Member of Clubs or [...] 0 min Stress: Stress Concern Present (12/14/2023) [employer] [place] [employer] - Occupational Stress Questionnaire Feeling of Stress : Very much Social Connections: Socially Isolated (12/14/2023) Social Connection and Isolation Panel [NHANES] Frequency of Communication with Friends and Family: Once a week Frequency of Social Gatherings with Friends and Family: More than three times a week Attends Latter-Day Services: Never Active Member of Clubs or [...] Year: Yes Utilities: Not At Risk (12/14/2023) [facility] Utilities Threatened with loss of utilities: [...] 373 ms QTC Interval 459 ms P [place] 53 degrees QRS [place] -11 degrees T Wave [place] -5 degrees [place] Interval 148 ms Basic metabolic panel Collection [...] pt provided information to follow OP with [facility] On this day, 12/15/23, I spent total time 35 minutes preparing to see the pt, reviewing previous notes, obtaining/reviewing separately obtained, history, test results, [facility] care [facility], counseling/educating the patient/family/caregiver and face to face [...] EST Hospitalist Progress Note 12/15/2023 7:47 AM [phone]: Please page me for patient care issues. [phone]: Please page [facility] night Hospitalist for any issues. Subjective: Admit Date: 12/13/2023 PCP: Tam Hughes, DO Room#: N3-357/N3-357 A Interval History: Patient seen and examined 38-year-old male past medical history of alcohol use disorder, alcohol withdrawal seizure, pancreatitis, GERD, hypertension, SVT, smoking history, depression, admitted in November 2023 at [facility] following pancreatitis/abnormal LFT, hepatitis panel negative, [...] tachycardia) (HCC) Tourette syndrome Adult diet Regular @[id number]@ Medications: desvenlafaxine, 50 mg, Oral, Daily doxepin, [...] was made to ensureaccuracy; however, inadvertent computerized sugar chipper machine operator errors may be present. Maxwell Esposito MD Division of Hospitalist Medicine Acute Care [facility] PAGER: Epic chat * Ron Fonseca, JOSÉ ANTONIO - TAPE RULES PRINTING MACHINE OPERATOR - 12/14/2023 2:20 PM EST Patient off unit to endoscopy, will attempt to see patient tomorrow. Continue phenobarbital and Ativan as ordered. * Maxwell Esposito MD - 12/14/2023 9:40 AM EST Hospitalist Progress Note 12/14/2023 9:40 AM [phone]: Please page me for patient care issues. [phone]: Please page [facility] night Hospitalist for any issues. Subjective: Admit Date: 12/13/2023 PCP: Tam Hughes, DO Room#: N3-357/N3-357 A Interval History: Patient seen and examined 38-year-old male past medical history of alcohol use disorder, alcohol withdrawal seizure, pancreatitis, GERD, hypertension, SVT, smoking history, depression, admitted in November 2023 at [facility] following pancreatitis/abnormal LFT, hepatitis panel negative, right upper quadrant ultrasonogram showed severe hepatic steatosis, echo at the time showed EF normal. Psychiatric medication was discontinued due to abnormal LFT during last admission. Patient mentioned that he has history of depression, psychiatric medication was discontinued last month following abnormal LFT at [facility]. He started drinking in excess since discharge from [facility]. Patient denies any suicidal ideation Admitted [...] (HCC) Tourette syndrome Adult diet Clear liquid @[id number]@ Medications: sodium chloride, 100 mL/hr, Last Rate: [...] was made to ensureaccuracy; however, inadvertent computerized sugar chipper machine operator errors may be present. Maxwell Esposito MD Division of Hospitalist Medicine [facility] PAGER: Epic chat documented in this [facility]11-07-2024 Miscellaneous Notes* Care Coordination - Edwige Roldan RN - 12/17/2023 10:30 AM EST Care Management Progress Note Pt has DC orders in place. Met with pt, he would like to use his Transportation Benefits via [employer]. The # given to pt to call when ready for DC..[phone]. Location of warehouse order picker was also given to pt. Length of [...] Limits Permission given to speak with patient shared services representative/caregiver as indicated: (Summer Valdivia [phone]) Confirmation of Payer with patient/family: Yes Payer [...] Daily Living Prescription Coverage: Yes Pharmacy Used: [facility] - [place], [place] - [address] [phone]. MEDS to BEDS @DC Medication Management: Independent [...] Please call the Main Endoscopy Dept at [phone] for questions. Report called to floor RN * Op Note - Hari Kline MD - 12/14/2023 1:37 PM [facility] Name: Roro Valdivia Procedure Date: 12/14/2023 1:37 PM Gender: Male Date of : 1985 Age: 38 Admit Type: Inpatient Note Status: Finalized Endoscopist: Hari Kline MD, [id number] Procedure: Upper GI endoscopy Indications: Hematemesis Findings: [...] add carafate - [facility] - Advance diet as tolerated [...] immediate complications. Procedure Code(s): --- Professional --- 23644, Esophagogastroduodenoscopy, flexible, transoral; with biopsy, single or multiple --- Technical --- 72178, Esophagogastroduodenoscopy, flexible, transoral; with biopsy, single or [...] without bleeding K92.0, Hematemesis CPT copyright 2021 [employer]. All rights reserved. The codes documented in this report are preliminary and upon education director review may be revised to meet current compliance requirements. Hari Kline MD 12/14/2023 1:58:38 PM This report has been signed electronically. Number of Addenda: 0 Note Initiated On: 12/14/2023 1:37 PM documented in this [facility]11-07-2024 Note* Care Coordination - Edwige Roldan RN - 12/17/2023 10:30 AM EST Care Management Progress Note Pt has DC orders in place. Met with pt, he would like to use his Transportation Benefits via [employer]. The # given to pt to call when ready for DC..[phone]. Location of warehouse order picker was also given to pt. Length of Stay (Days): 4 GMLOS: No GMLOS Documented [facility]Vxkile45-31-9213 Note* Care Coordination - Edwige Roldan RN - 12/17/2023 10:30 AM EST Care Management Progress Note Pt has DC orders in place. Met with pt, he would like to use his Transportation Benefits via [employer]. The # given to pt to call when ready for DC..[phone]. Location of warehouse order picker was also given to pt. Length of Stay (Days): 4 GMLOS: No GMLOS Documented [facility]ncuqp85-18-0356 Hospital course Narrative* Maxwell Esposito MD - [...] history, depression, admitted in November 2023 at [facility] following pancreatitis/abnormal LFT, hepatitis panel negative, right upper quadrant ultrasonogram showed severe hepatic steatosis, echo at the time showed EF normal. Psychiatric medication was discontinued due to abnormal LFT during last admission. Patient mentioned that he has history of depression, psychiatric medication was discontinued last month following abnormal LFT at [facility]. He started drinking in excess since discharge from [facility]. Patient was treated for alcohol use [...] on Effexor/risperidone. Patient needs to follow-up with [facility] behavioral outpatient clinic after discharge. On the [...] Complexity: follow up within 7-14 calendar days (58531) [] Severe Complexity: follow up within 7 calendar days (21785) FOLLOW UP TESTING, PENDING RESULTS OR REFERRALS AT TRANSITIONAL CARE VISIT: [] Yes [] No PENDING STUDIES: DISPOSITION: Home FACILITY/HOME CARE AGENCY NAME: Follow up with Tam Hughes DO [address] [facility] [address] Schedule an appointment as soon as possible for a visit in 1 week(s) CBC, CMP panel in 1 week [facility] - [address] [facility] [address] Schedule an appointment as soon as possible for a visit in 1 month(s) [facility] [address] [facility] [phone] Schedule an appointment as soon as possible for a visit [facility] [address] [place] [address] Walk in hours: Thursday-Thursday [phone] INSTRUCTIONS TO MA/SW: Please call patient on [...] MD 12/17/2023, 9:22 AM documented in this [facility]11-06-2024 Plan of care note* Care Plan - [...] Interventions Goal: Assess Nutritional Intake Outcome: Progressing [place] [id number] Note* Care Coordination - Edwige Roldan RN - 12/16/2023 3:20 PM EST Care Management Progress Note Pt remains on Phenobarb Taper. Plan to be DC to home @DC. CM to follow. Length of Stay (Days): 3 GMLOS: No GMLOS Documented [place] [id number] Note* Care Coordination - Edwige Roldan RN - 12/16/2023 3:20 PM EST Care Management Progress Note Pt remains on Phenobarb Taper. Plan to be DC to home @DC. CM to follow. Length of Stay (Days): 3 GMLOS: No GMLOS Documented [place] [id number] Plan of care note* Care Plan - Yayo Washington RN - 12/15/2023 9:59 PM EST Problem: Pain - Adult Goal: Verbalizes/displays adequate comfort level or baseline comfort level Outcome: Progressing Problem: Safety - Adult Goal: Free from fall injury Outcome: Progressing [place] [id number] Plan of care note* Care Plan - [...] Goal: Free from restraint events Outcome: Progressing [facility]Qzrayz05-22-1977 Note* Care Coordination - Edwige Roldan RN - 12/15/2023 1:30 PM EST Care Managment Initial Assessment Date: 12/15/2023 Patient Name: Roro Valdivia : 1985 Patient Information Source of Information: Patient Cognition/Language: WFL - Within Functional Limits Permission given to speak with patient shared services representative/caregiver as indicated: (Summer Valdivia [phone]) Confirmation of Payer with patient/family: Yes Payer Name: [place] ODM : No Confirmation of Primary [...] Daily Living Prescription Coverage: Yes Pharmacy Used: [facility] - [place], [place] - [address] [phone]. MEDS to BEDS @DC Medication Management: Independent [...] up. CM to follow. Edwige Roldan RN [facility]Ccocjl75-14-1005 Note* Care Coordination - Edwige Roldan RN - 12/15/2023 1:30 PM EST Care Managment Initial Assessment Date: 12/15/2023 Patient Name: Roro Valdivia : 1985 Patient Information Source of Information: Patient Cognition/Language: WFL - Within Functional Limits Permission given to speak with patient shared services representative/caregiver as indicated: (Summer Valdivia [phone]) Confirmation of Payer with patient/family: Yes Payer Name: [place] ODM : No Confirmation of Primary [...] Daily Living Prescription Coverage: Yes Pharmacy Used: [facility] - [place], [place] - [address] [phone]. MEDS to BEDS @DC Medication Management: Independent [...] up. CM to follow. Edwige Roldan RN [facility] WestLulhcp95-23-2106 Plan of care note* Care Plan - [...] Recommendations to address these barriers include none. [facility]11-04-2024 Note* Perioperative Nursing Note - Juan Becerril RN - 12/14/2023 2:02 PM EST POST ENDOSCOPY PROCEDURE TRANSFER REPORT Physician: Dr. Kline Procedure completed: EGD Specimens obtained: Antrum bx, Distal Esophagus bx Medications administered: 600 mg Propofol Findings: see GI note Complications: none, pt tolerated well Please call the Main Endoscopy Dept at [phone] for questions. Report called to floor RN [place] [address]-04-2024 Note* Perioperative Nursing Note - Juan Becerril RN - 12/14/2023 2:02 PM EST POST ENDOSCOPY PROCEDURE TRANSFER REPORT Physician: Dr. Kline Procedure completed: EGD Specimens obtained: Antrum bx, Distal Esophagus bx Medications administered: 600 mg Propofol Findings: see GI note Complications: none, pt tolerated well Please call the Main Endoscopy Dept at [phone] for questions. Report called to floor RN [place] [address]-04-2024 Note* Op Note - Hari Kline MD - 12/14/2023 1:37 PM EST Endoscopy Center- [facility] Patient Name: Roro Valdivia Procedure Date: 12/14/2023 1:37 PM Gender: Male Date of : 1985 Age: 38 Admit Type: Inpatient Note Status: Finalized Endoscopist: Hari Kline MD, [id number] Procedure: Upper GI endoscopy Indications: Hematemesis Findings: [...] may add carafate - Follow up with [facility] - Advance diet as tolerated - [...] immediate complications. Procedure Code(s): --- Professional --- 44206, Esophagogastroduodenoscopy, flexible, transoral; with biopsy, single or multiple --- Technical --- 64864, Esophagogastroduodenoscopy, flexible, transoral; with biopsy, single or [...] without bleeding K92.0, Hematemesis CPT copyright 2021 [employer]. All rights reserved. The codes documented in this report are preliminary and upon education director review may be revised to meet current compliance requirements. Hari Kline MD 12/14/2023 1:58:38 PM This report has been signed electronically. Number of Addenda: 0 Note Initiated On: 12/14/2023 1:37 PM [facility]Ccdxor04-03-7730 Note* Op Note - Hari Kline MD - 12/14/2023 1:37 PM EST Endoscopy [facility]- [facility] Patient Name: Roro Valdivia Procedure Date: 12/14/2023 1:37 PM Gender: Male Date of : 1985 Age: 38 Admit Type: Inpatient Note Status: Finalized Endoscopist: Hari Kline MD, [id number] Procedure: Upper GI endoscopy Indications: Hematemesis Findings: [...] may add carafate - Follow up with [facility] Gi - Advance diet as tolerated - [...] immediate complications. Procedure Code(s): --- Professional --- 75379, Esophagogastroduodenoscopy, flexible, transoral; with biopsy, single or multiple --- Technical --- 73367, Esophagogastroduodenoscopy, flexible, transoral; with biopsy, single or [...] without bleeding K92.0, Hematemesis CPT copyright 2021 [employer]. All rights reserved. The codes documented in this report are preliminary and upon education director review may be revised to meet current compliance requirements. Hari Kline MD 12/14/2023 1:58:38 PM This report has been signed electronically. Number of Addenda: 0 Note Initiated On: 12/14/2023 1:37 PM [facility]11-04-2024 Consult note* Ron Fonseca, JOSÉ ANTONIO - TAPE RULES PRINTING MACHINE OPERATOR - 12/14/2023 11:52 AM ESTAssociated Order(s): IP CONSULT TO ADDICTION MEDICINE Images from the original note were not included. Addiction Medicine Consultation H&P Patient: Roro Valdivia Admit Date: 12/13/2023 Primary Care Physician: Tam Hughes DO Reason for Consultation: alcohol detox. Chief Complaint Patient presents with Alcohol Intoxication Brought in by his mother from home. He was recently at [facility] for some time. They discontinued his [...] [x] Chem Dep IOP: CD IOP through [facility] [x] Detoxifications: several. [x] 12 Step Meetings: in the past. [] Medication Assisted Treatment: denies. Psychiatric History: Current Psychiatrist: [facility] in the past, none currently Current [...] 0 min Stress: Stress Concern Present (10/16/2023) [employer] [place] [employer] - Occupational Stress Questionnaire Feeling of Stress : Very much Social Connections: Socially Isolated (10/16/2023) Social Connection and Isolation Panel [NHANES] Frequency of Communication with Friends and Family: Never Frequency of Social Gatherings with Friends and Family: Never Attends Latter-Day Services: Never Active Member of Clubs or [...] History of pancreatitis 01/07/2023 Hypertension Pancreatitis Seizures ([facility]) SVT (supraventricular tachycardia) ([facility]) Tourette syndrome Past Surgical History: Procedure Laterality [...] 373 ms QTC Interval 459 ms P [place] 53 degrees QRS [place] -11 degrees T Wave [place] -5 degrees [place] Interval 148 ms Basic metabolic panel Collection [...] symptoms. Medical stabilization. Labs/tests/tasks to review: none. Medication Technician recommendations: none. Remaining medical management per primary team. Will follow. JOSÉ ANTONIO Jiménez CNP Addiction Medicine 12/14/2023 at 11:52 AM I spent over 51% of total time 50 minutes counseling and coordinating care regarding patient's chemical dependency status. Note: Narrative portions of note written using StepOut dictation software. Efforts are made to dictate clearly and proofread but errors in dictation still may occur. Please reach out to author with any clarifying questions. [id number] Consult note* JOSÉ ANTONIO Martin CNP - [...] mother from home. He was recently at [facility] for some time. They discontinued his [...] [x] Chem Dep IOP: CD IOP through [facility] [x] Detoxifications: several. [x] 12 Step Meetings: in the past. [] Medication Assisted Treatment: denies. Psychiatric History: Current Psychiatrist: [facility] in the past, none currently Current [...] 0 min Stress: Stress Concern Present (10/16/2023) [place] [place] [employer] - Occupational Stress Questionnaire Feeling of Stress : Very much Social Connections: Socially Isolated (10/16/2023) Social Connection and Isolation Panel [NHANES] Frequency of Communication with Friends and Family: Never Frequency of Social Gatherings with Friends and Family: Never Attends Latter-Day Services: Never Active Member of Clubs or [...] 373 ms QTC Interval 459 ms P [place] 53 degrees QRS [place] -11 degrees T Wave [place] -5 degrees [place] Interval 148 ms Basic metabolic panel Collection [...] symptoms. Medical stabilization. Labs/tests/tasks to review: none. Medication Technician recommendations: none. Remaining medical management per primary team. Will follow. Ron Fonseca APRN - TAPE RULES PRINTING MACHINE OPERATOR Addiction Medicine 12/14/2023 at 11:52 AM I [...] Alcohol use disorder, admitted last month to [facility] for pancreatitis/alcohol abuse,psychiatric medication was discontinued [...] Pt was admitted in November 2023 at [facility] following pancreatitis/abnormal LFT, hepatitis panel negative, [...] 2 mg, 2 mg, Oral, q4h PRN, Atn Carty MD melatonin tablet 5 mg, 5 [...] disease) 06/06/2018 Hypertension 06/06/2018 SVT (supraventricular tachycardia) ([facility]) 06/06/2018 Tourette syndrome 06/06/2018 Alcohol induced acute pancreatitis without necrosis or infection 03/29/2018 Polysubstance use disorder 03/16/2022 Cocaine abuse ([facility]) 03/16/2022 Elevated liver enzymes 03/16/2022 Panic disorder 03/16/2022 Alcohol abuse 07/11/2022 Benzodiazepine withdrawal with complication ([facility]) 11/04/2022 Opioid withdrawal ([facility]) 11/04/2022 Amphetamine withdrawal ([facility]) 11/04/2022 Pneumonia 11/04/2022 Palpitations 11/04/2022 Other specified [...] 0 min Stress: Stress Concern Present (10/16/2023) [place] [place] [employer] - Occupational Stress Questionnaire Feeling of Stress : Very much Social Connections: Socially Isolated (10/16/2023) Social Connection and Isolation Panel [NHANES] Frequency of Communication with Friends and Family: Never Frequency of Social Gatherings with Friends and Family: Never Attends Latter-Day Services: Never Active Member of Clubs or [...] AM ESTAssociated Order(s): IP CONSULT TO PSYCHIATRY [facility] Department of Psychiatry Nurse Practitioner Note *Please contact Manager Financial Reporting Psychiatry Listed in [facility] On-Call Finder Thu-Thu: From 1700 - 0800 and on Thursday & Thursday* TODAY'S DATE: 12/14/23 ADMISSION DATE: 12/13/2023 IDENTIFYING INFORMATION Name: Roro Valdivia : 1985 Reason for Consult: Alcohol use disorder, admitted last month to [facility] for pancreatitis/alcohol abuse, psychiatric medication was discontinued due to abnormal LFT, patient has significant history of depression Consulting Practition[facility]: 1 SUBJECTIVE: CHIEF COMPLAINT: CC: Chief Complaint Patient presents with Alcohol Intoxication Brought in by his mother from home. He was recently at [facility] for some time. They discontinued his [...] Principal Problem: Alcoholic intoxication without complication (CMS/HCC) ([facility]) Psychiatric CC: anxiety and depression For every [...] 38 y.o., male who was hospitalized at [facility] for Alcoholic intoxication without complication ([facility]/HCC) ([facility]) on 12/13/2023. PMH of alcohol withdrawal seizures, alcohol withdrawal syndrome, panic attacks/anxiety, history of pancreatitis, polysubstance abuse, GERD, tourette's and SVT. Pt with recent admission to [facility] (11/16-11/27) with elevated LFTs, at that time [...] mg, 50 mg, Oral, Daily, Fatuma Hess, NURSE HEALTHCARE MANAGER - TAPE RULES PRINTING MACHINE OPERATOR [Transfer Hold] doxepin (SINEquan) capsule 10 mg, [...] mg, Oral, Nightly, Fatuma Hess APRN - TAPE RULES PRINTING MACHINE OPERATOR sodium chloride 0.9 % infusion, 100 mL/hr, [...] Diagnosis Date Alcohol withdrawal syndrome without complication ([facility]) 06/27/2022 Alcohol withdrawal with inpatient treatment, uncomplicated ([facility]) 03/15/2022 GERD (gastroesophageal reflux disease) History of pancreatitis 01/07/2023 Hypertension Pancreatitis Seizures ([facility]) SVT (supraventricular tachycardia) ([facility]) Tourette syndrome Past Surgical History: Procedure Laterality Date APPENDECTOMY Family History Problem Relation Name Age of Onset No Known Problems Mother No Known Problems Father Social History: Single, lives in [place], no family support. Has GED, unemployed. No [...] 0 min Stress: Stress Concern Present (10/16/2023) [employer] [place] [employer] [facility] - Occupational Stress Questionnaire Feeling of Stress : Very much Social Connections: Socially Isolated (10/16/2023) Social Connection and Isolation Panel [NHANES] Frequency of Communication with Friends and Family: Never Frequency of Social Gatherings with Friends and Family: Never Attends Latter-Day Services: Never Active Member of Clubs or [...] Last Year: Yes Utilities: Patient Declined (10/16/2023) [facility] Utilities Threatened with loss of utilities: [...] 373 ms QTC Interval 459 ms P [place] 53 degrees QRS [place] -11 degrees T Wave [place] -5 degrees [place] Interval 148 ms Basic metabolic panel Collection [...] day of the visit. documented in this [facility]11-04-2024 Consult note* Hari Kline MD - 12/14/2023 11:01 AM ESTAssociated Order(s): IP CONSULT TO GI Department of Internal Medicine Gastroenterology Attending Consult Note Reason for Consult: The patient was seen in consultation at the request of Dr. Vaibhav Arreola re: Alcohol use disorder, admitted last month to [facility] for pancreatitis/alcohol abuse,psychiatric medication was discontinued [...] Pt was admitted in November 2023 at [facility] following pancreatitis/abnormal LFT, hepatitis panel negative, [...] disease) 06/06/2018 Hypertension 06/06/2018 SVT (supraventricular tachycardia) ([facility]) 06/06/2018 Tourette syndrome 06/06/2018 Alcohol induced acute pancreatitis without necrosis or infection 03/29/2018 Polysubstance use disorder 03/16/2022 Cocaine abuse ([facility]) 03/16/2022 Elevated liver enzymes 03/16/2022 Panic disorder 03/16/2022 Alcohol abuse 07/11/2022 Benzodiazepine withdrawal with complication ([facility]) 11/04/2022 Opioid withdrawal ([facility]) 11/04/2022 Amphetamine withdrawal ([facility]) 11/04/2022 Pneumonia 11/04/2022 Palpitations 11/04/2022 Other specified [...] 0 min Stress: Stress Concern Present (10/16/2023) [employer] [place] [employer] - Occupational Stress Questionnaire Feeling of Stress : Very much Social Connections: Socially Isolated (10/16/2023) Social Connection and Isolation Panel [NHANES] Frequency of Communication with Friends and Family: Never Frequency of Social Gatherings with Friends and Family: Never Attends Latter-Day Services: Never Active Member of Clubs or [...] by Hari Kline MD 12/14/2023 1:34 PM Web[employer] Work Phone: 1(580) 856-842211-04-2024 Consult note* JOSÉ ANTONIO Scruggs CNP - 12/14/2023 10:51 AM ESTAssociated Order(s): IP CONSULT TO PSYCHIATRY [facility] Department of Psychiatry Nurse Practitioner Note *Please contact Manager Financial Reporting Psychiatry Listed in [facility] On-Call Finder Thu-Thu: From 1700 - 0800 and on Thursday & Thursday* TODAY'S DATE: 12/14/23 ADMISSION DATE: 12/13/2023 IDENTIFYING INFORMATION Name: Roro Valdivia : 1985 Reason for Consult: Alcohol use disorder, admitted last month to [facility] for pancreatitis/alcohol abuse, psychiatric medication was discontinued due to abnormal LFT, patient has significant history of depression Consulting Practitioner: SEBASTIEN Zambrano Hospital Day: 1 SUBJECTIVE: CHIEF COMPLAINT: CC: Chief Complaint Patient presents with Alcohol Intoxication Brought in by his mother from home. He was recently at [facility] for some time. They discontinued his [...] Pancreatitis Principal Problem: Alcoholic intoxication without complication ([facility]) ([facility]) Psychiatric CC: anxiety and depression For every [...] 38 y.o., male who was hospitalized at [facility] for Alcoholic intoxication without complication ([facility]) ([facility]) on 12/13/2023. PMH of alcohol withdrawal seizures, alcohol withdrawal syndrome, panic attacks/anxiety, history of pancreatitis, polysubstance abuse, GERD, tourette's and SVT. Pt with recent admission to [facility] (11/16-11/27) with elevated LFTs, at that time [...] mg, 50 mg, Oral, Daily, Fatuma Hess, NURSE HEALTHCARE MANAGER - TAPE RULES PRINTING MACHINE OPERATOR [Transfer Hold] doxepin (SINEquan) capsule 10 mg, 10 mg, Oral, Nightly, Dov Vanegas MD [Transfer Hold] folic acid (Folvite) tablet 1 mg, 1 mg, Oral, Daily, Tania Payne DO, 1 mg at 12/14/23 0819 [Transfer Hold] labetalol (Normodyne,Trandate) injection 10 mg, 10 mg, IntraVENous, q6h PRN, MD Larui [Transfer Hold] LORazepam (Ativan) tablet 1 mg, [...] mg, 0.5 mg, Oral, Nightly, Fatuma Hess, NURSE HEALTHCARE MANAGER - TAPE RULES PRINTING MACHINE OPERATOR sodium chloride 0.9 % infusion, 100 mL/hr, [...] Diagnosis Date Alcohol withdrawal syndrome without complication ([facility]) 06/27/2022 Alcohol withdrawal with inpatient treatment, uncomplicated ([facility]) 03/15/2022 GERD (gastroesophageal reflux disease) History of pancreatitis 01/07/2023 Hypertension Pancreatitis Seizures ([facility]) SVT (supraventricular tachycardia) ([facility]) Tourette syndrome Past Surgical History: Procedure Laterality Date APPENDECTOMY Family History Problem Relation Name Age of Onset No Known Problems Mother No Known Problems Father Social History: Single, lives in [place], no family support. Has GED, unemployed. No [...] 0 min Stress: Stress Concern Present (10/16/2023) [place] [place] [employer] - Occupational Stress Questionnaire Feeling of Stress : Very much Social Connections: Socially Isolated (10/16/2023) Social Connection and Isolation Panel [NHANES] Frequency of Communication with Friends and Family: Never Frequency of Social Gatherings with Friends and Family: Never Attends Latter-Day Services: Never Active Member of Clubs or [...] Last Year: Yes Utilities: Patient Declined (10/16/2023) [facility] Utilities Threatened with loss of utilities: [...] 373 ms QTC Interval 459 ms P [place] 53 degrees QRS [place] -11 degrees T Wave [place] -5 degrees [place] Interval 148 ms Basic metabolic panel Collection [...] record on the day of the visit. [id number] Hospital Discharge instructions* Discharge Instr - Activity* Maxwell Esposito MD - 12/14/2023 9:40 AM EST As tolerated * Discharge Instr - Diet* Maxwell Esposito MD - 12/14/2023 9:40 AM EST Regular diet * Attachments The following attachments cannot be sent through Care Everywhere. * Upper GI Endoscopy Discharge Instructions (Mauritian) documented in this [facility]11-04-2024 Emergency department Note* Debby Solomon - 12/14/2023 7:44 AM EST PATIENT ON WAY TO ANOTHER FLOOR [facility] [id number] Emergency department Note* Debby Solomon - 12/14/2023 [...] on the floor. Floor cleaned up by copier and printer field technician Karolyn. * Karolyn Mera - 12/13/2023 [...] PM EST EKG at bedside. * Roro Byrant RN - 12/13/2023 12:36 PM EST Patient [...] 11:39 AM EST Emergency Department Encounter Location: [facility] EMERGENCY DEPT Patient: Roro Valdivia : 1985 [...] 373 ms QTC Interval 459 ms P [place] 53 degrees QRS [place] -11 degrees T Wave [place] -5 degrees [place] Interval 148 ms No orders to display [...] Impression 1. Alcoholic intoxication without complication (CMS/HCC) ([facility]) DISPOSITION Admit 12/13/2023 11:17:49 PM (Please note that portions of this note may have been completed with a voice recognition program. Efforts were made to edit the dictations but occasionally words are mis-transcribed.) Mattie Durbin DO Acute Care [facility] Mattie Durbin DO 12/13/23 3217 * Roro Bryant RN - 12/13/2023 11:39 AM EST Vomiting seems to have resolved. documented in this [facility]11-04-2024 Emergency department Note* Janine Lino RN - 12/14/2023 6:44 AM EST Patient telemetry admission -- awaiting telemetry transport to the floor at this time [id number] Emergency department Note* Janine Lino RN - 12/14/2023 6:22 AM EST Report called to RN on 3N at this time. Pt vitals stable and pt is ready to be put in for transport [place] [address]-04-2024 Emergency department Note* Violeta Edmonds - 12/14/2023 5:13 AM EST Pt given water by Apolonia ARAUZ. [place] [address]-04-2024 Emergency department Note* Timothy Saavedra MA - 12/14/2023 2:40 AM EST Violeta jordan in obtaining new VS. [place] [address]-03-2024 History and physical note* Ant Carty MD [...] by family. Patient recently discharged 11/27 from [facility] for EtOH withdrawal, pancreatitis. At that [...] History of pancreatitis 01/07/2023 Hypertension Pancreatitis Seizures ([facility]) SVT (supraventricular tachycardia) (HCC) Tourette syndrome Past [...] 0 min Stress: Stress Concern Present (10/16/2023) [employer] [place] [employer] - Occupational Stress Questionnaire Feeling of Stress : Very much Social Connections: Socially Isolated (10/16/2023) Social Connection and Isolation Panel [NHANES] Frequency of Communication with Friends and Family: Never Frequency of Social Gatherings with Friends and Family: Never Attends Latter-Day Services: Never Active Member of Clubs or [...] MD Division of Hospitalist Medicine [place]patient Medical Services[place] [place] [employer] Work Phone: [phone]) 726-398811-03-2024 History and physical note* Ant Carty MD [...] by family. Patient recently discharged 11/27 from [facility] for EtOH withdrawal, pancreatitis. At that [...] History of pancreatitis 01/07/2023 Hypertension Pancreatitis Seizures ([facility]) SVT (supraventricular tachycardia) (HCC) Tourette syndrome Past [...] 0 min Stress: Stress Concern Present (10/16/2023) [place] [place] [employer] - Occupational Stress Questionnaire Feeling of Stress : Very much Social Connections: Socially Isolated (10/16/2023) Social Connection and Isolation Panel [NHANES] Frequency of Communication with Friends and Family: Never Frequency of Social Gatherings with Friends and Family: Never Attends Latter-Day Services: Never Active Member of Clubs or [...] MD Division of Hospitalist Medicine Inpatient Medical Services[place] [place] in [place] [address]-03-2024 Emergency department Note* Janine Lino RN - 12/13/2023 11:18 PM EST Assumed care of pt for lunch coverage from JOSE GUADALUPE [place] [id number] Emergency department Note* Violeta Edmonds - 12/13/2023 11:05 PM EST at bedside. [address]Gugsdz67-74-7681 Emergency department Note* Savanna Jason, EMT - 12/13/2023 10:49 PM EST Clementine RN at bedside. [address]Vdhsey33-73-1119 Emergency department Note* Violeta Edmonds - 12/13/2023 10:32 PM EST Pt stated to Savanna Jordan that he is having a panic attack. Apolonia ARAUZ at bedside. [address]Nkrvbz73-50-7256 Emergency department Note* Violeta Edmonds - 12/13/2023 10:11 PM EST Pt given ada rand by Apolonia ARAUZ. [address]Ztgean74-24-4445 Emergency department Note* Savanna Jason, MARIXA - 12/13/2023 6:18 PM EST DAYSI Parr at bedside taking vitals. [address]Arwsqj43-43-9388 Emergency department Note* Savanna Jaosn, EMT - 12/13/2023 6:07 PM EST Pt spilled beverage on the floor. Floor cleaned up by copier and printer field technician Karolyn. [address]Qzeryt87-05-4850 Emergency department Note* Karolyn Mera - 12/13/2023 5:40 PM EST Pt at this time does not want to eat. [address]Ihlyan31-15-6485 Emergency department Note* Mary Houston - 12/13/2023 5:34 PM EST Refused Dinner Tray [address]Bqqtdu35-89-5430 Emergency department Note* Mary Houston - 12/13/2023 4:49 PM EST JOSE GUADALUPE De La Fuente At Pt Bedside [address]Rafuvg41-56-9294 Emergency department Note* Mary Houston - 12/13/2023 4:04 PM EST NST Savanna At Pt Bedside Providing Pt With Another Urinal And Assisting Pt Back Into Bed, Cleaning UpUrine [id number] Emergency department Note* Mary Houston - 12/13/2023 3:43 PM EST JOSE GUADALUPE De La Fuente At Pt Bedside To Disconnect Fluids [address]Egxdqf32-87-5290 Emergency department Note* Mary Houston - 12/13/2023 3:38 PM EST Juliet Parr At Pt Bedside To Provide Pt With Urinal [address]Gvirwx95-89-8734 Emergency department Note* Karolyn Mera - 12/13/2023 2:20 PM EST Roro SHI at bedside [address]Mezfow49-51-7187 Emergency department Note* Karolyn Mera - 12/13/2023 2:13 PM EST Pt calling out help, Tyree SHI to see what pt needs [address]Dmpskq89-78-3285 Emergency department Note* Karolyn Mera - 12/13/2023 1:47 PM EST Tyree SHI at bedside [address]Xgqrsn68-66-7172 NoteNOTE: This result is for medical treatment only. Analysis performed using non-forensic procedures. [place] [id number] Emergency department Note* Roro Bryant RN - 12/13/2023 12:52 PM EST Straight cath complete tolerated well. [address]Byzsds83-93-7976 Emergency department Note* Roro Bryant RN - 12/13/2023 12:47 PM EST Blood redrawn and sent to lab, tolerated well. [address]Lkpstc85-94-3290 Emergency department Note* Socorro Lozada - 12/13/2023 12:37 PM EST EKG at bedside. [address]Slyxvy24-77-7584 Emergency department Note* Roro Bryant RN - 12/13/2023 12:36 PM EST Patient did not want his mother in the room to sit with him. [address]Voulhf38-88-5389 Emergency department Note* Mary Houston - 12/13/2023 12:16 PM EST JOSE GUADALUPE De La Fuente At Pt Bedside To Assist With Getting A Urine Sample Through A Straight Catheter [address]Fnohzl46-33-9822 Emergency department Note* Mary Houston - 12/13/2023 12:12 PM EST JOSE GUADALUPE De La Fuente At Pt Bedside [address]Yhusbc40-09-9734 Emergency department Note* Mary Houston - 12/13/2023 12:06 PM EST JOSE GUADALUPE De La Fuente At Pt Bedside To Check Vitals [address]Sshhsk10-14-7425 Emergency department Note* Mary Houston - 12/13/2023 11:55 AM EST Pt Changed Into Hospital Gowns And Socks. Skin Assessment Completed By JOSE GUADALUPE De La Fuente. Pt Wanded By Protective Services, 1 Bag Of Belongings Locked Into Cabinet. [address]Ehfrja75-10-6390 Emergency department Note* Mary Houston - 12/13/2023 11:49 AM EST JOSE GUADALUPE De La Fuente& Protective Services At Pt Bedside For Triage Process [address]Ihapzn29-26-6499 Emergency department Note* Mary Houston - 12/13/2023 11:43 AM EST Pt To Room 53 [address]Dwsfbd29-40-0351 Emergency department Note* Mary Houston - 12/13/2023 11:43 AM EST JOSE GUADALUPE De La Fuente & Protective Usama At Pt Bedside For IV Insertion [address]Cemurk56-32-1752 Emergency department Triage note* Roro Bryant RN - 12/13/2023 11:39 AM EST Vomiting seems to have resolved. [address]Mzpaod53-05-4223 Physician Emergency department Note* Idris Danielson MD [...] dictating provider for clarification.) Idris Danielson MD [facility] Idris Danielson MD 12/13/23 1432 [place] Phone: 1(676) 841-748711-03-2024 Physician Emergency department Note* Mattie Durbin DO - 12/13/2023 11:39 AM EST Emergency Department Encounter Location: [facility] EMERGENCY DEPT Patient: Roro Valdivia : 1985 [...] 373 ms QTC Interval 459 ms P [place] 53 degrees QRS [place] -11 degrees T Wave [place] -5 degrees [place] Interval 148 ms No orders to display [...] [employer] Mattie Durbin DO 12/13/23 4590 [facility]Immbrf85-19-8418 Telephone encounter Note* Telephone Encounter - Seema Sumner LPN - 12/01/2023 9:23 AM EDT Unable to contact patient X2 [facility] WestKdjxhl75-10-2473 Miscellaneous Notes* Telephone Encounter - Seema Sumner LPN - 12/01/2023 9:23 AM EDT Unable to contact patient X2 * Telephone Encounter - Seema Sumner LPN - 11/30/2023 9:41 AM EDT S: Patient admitted to: [facility] 11/17/23 B: Discharged on : 11/28/23 A: Hospital follow up call initiated to discuss any medication changes, follow up appointments and discharge instructions: Acute pancreatitis without infection or necrosis R: No contact x 1 at : [phone] documented in this [facility]SSelect [facility] HospitalPhlxeg55-44-9276 Telephone encounter Note* Telephone Encounter - Seema Sumner LPN - 11/30/2023 9:41 AM EDT S: Patient admitted to: [facility] 11/17/23 B: Discharged on : 11/28/23 A: Hospital follow up call initiated to discuss any medication changes, follow up appointments and discharge instructions: Acute pancreatitis without infection or necrosis R: No contact x 1 at : [phone] [facility] WestRpwdjo76-79-8170 Hospital Discharge instructions* Discharge Instr - Activity* Cory Tidwell RN - 11/28/2023 3:25 PM EDT As tolerated or instructed by physician * Discharge Instr - Diet* Cory Tidwell RN - 11/28/2023 3:26 PM EDT Eat healthy foods, avoid processed foods high in sodium and added sugars * Attachments The following attachments cannot be sent through Care Everywhere. * Chronic Pancreatitis Discharge Instructions (Mauritian) documented in this [facility]10-19-2024 Hospital course Narrative* Akbar Prajapati MD - 11/28/2023 1:30 PM EDT Discharge Summary Roro Valdivia : 1985 ADMIT DATE: 11/17/2023 DISCHARGE DATE: 11/28/2023 PRIMARY CARE PHYSICIAN: Tam Hughes VISIT STATUS: Admission CODE STATUS: Full Code DISCHARGE DIAGNOSES: Principal Problem: Acute pancreatitis without infection or necrosis Active Problems: Moderate malnutrition (CMS/HCC) ([facility]) HOSPITAL COURSE: Roro Valdivia is a 38 [...] Your Medications These medications were sent to [id number] - [place], [place] - [address] [facility] [place] [address] oxyCODONE 5 MG immediate release tablet DIET: Adult diet Regular; GI [place] (GERD/Peptic Ulcer) ACTIVITY: No restriction. COMPLEXITY OF FOLLOW UP: [] Moderate Complexity: follow up within 7-14 calendar days (16917) [] Severe Complexity: follow up within 7 calendar days (63197) FOLLOW UP TESTING, PENDING RESULTS OR REFERRALS [...] MD 11/28/2023, 1:30 PM documented in this [facility]10-19-2024 Miscellaneous Notes* Care Plan - Susan Zurita [...] to be weaned down. Discharge plan remains [facility] once medically ready. engineering manager to follow and assist as needed. [...] and Oxycodone for pain. Discharge plan remains [facility] when medically ready. engineering manager to follow and assist as needed. [...] Limits Permission given to speak with patient shared services representative/caregiver as indicated: No (provides no emergency contact) Confirmation of Payer with patient/family: Payer Name: [employer] [place]: No Confirmation of Primary Care Physician: Confirmed [...] Daily Living Prescription Coverage: Yes Pharmacy Used: [place] [facility] Medication Management: Independent Transportation/Shopping: Independent Transportation Mode: [...] reports he plans to admit himself to [facility] in [place] as he reports he has been there before. DC plan: anticipate [facility] in [place], [place] Leonie Mckay RN * Care Coordination - VANITA Isidro - 11/24/2023 11:28 AM EDT Per Addiction Medicine Physician, Dr. Dov Vanegas, patient indicated that he has been at [facility] in [place] a while back and would be interested in going there again. Spoke with Marcia in admissions who states they do have a bed and are requesting clinicals be faxed to [phone]. Will continue to follow for rehab placement [...] improved Outcome: Progressing * Care Coordination - Leonei Mckay RN - 11/20/2023 12:30 PM EDT [...] these barriers include NA. documented in this [facility]10-18-2024 History of Present illness Narrative* Britney Lau [...] (quadraceps) Fluid Accumulation: No significant fluid accumulation Mental Health Nurse Strength: Not Performed Nutrition Assessment: 38 year old man who remains admitted to [facility] with acute alcoholic pancreatitis. No surgical [...] On: Kcal/kg Weight Used for Energy Requirements: [place] Weight for Energy Calculation (kg): 84 kg Total Energy Requirements (kcals/day): 3429-1324 (25-30 kcal/kg IBW) Weight Used for Protein Requirements: [place] Weight in Kg Used for Protein Requirements: 84 kg Estimated Total Protein (g/day): 84-101 (1.0-1.2 g protein/kg IBW) Estimated Daily Total Fluid (ml/day): per MD Nutrition Related Findings: A+Ox4. +bm 11/25 with active bowel sounds. No skin break down or edema documented. Labs: bilirubin(1.5), LFTs remain elevated Wound Type: None Current Nutrition Therapies: Adult diet Regular; GI [place] (GERD/Peptic Ulcer) Current Oral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 Family: Never Attends Latter-Day Services: Never Active Member of Clubs or [...] Last Year: Yes Utilities: Patient Declined (08/11/2023) [facility] Utilities Threatened with loss of utilities: [...] Slight (A) (none) Polychromasia Rare (A) (none) [place] Cells Rare (A) (none) Neutrophils % 37 [...] with plan for MAT follow up at mi Anxiety Increased Effexor XR to 75mg, changed [...] Hilton has graduated fellowship. documented in this [facility]07-02-2024 Nurse Note* Fay Lara RN - 08/11/2023 [...] in reach. Reviewed ordered with the patient. [facility] WestZahzud13-58-1975 Hospital Discharge instructions* Discharge Instr - Other [...] National Suicide Prevention Hotline if needed at: 1-866-059-ZOLC (7709) Please call the following number should you have questions regarding your discharge or aftercare appointments: 4 [facility] documented in this [facility]07-02-2024 Note* Care Coordination - VANITA Toribio - 08/11/2023 7:48 AM EDT Behavioral Health Psycho-Social Assessment (Social Work) Date: 08/11/2023 Patient Name: Roro Valdivia : 1985 Identifying Information: Patient is a 37-year-old male admitted to for detox and alcohol. Patient is known to addiction medicine team was previously on unit on 11/03/2022. Patient was sent directly to [facility] for residential treatment. [facility] Patient reports that he went to [facility] for 3 months. He [...] Patient subsequently came in with yellow slip. SHAREPOINT ENGINEER communicated with nursing housekeeping supervisor hotel as well as Dr. Escobar. Presenting Problem: [...] attempt by overdose. Patient was sent to [facility] in [place] for stabilization. Patient has additional admissions to [facility]. Patient reports past history of suicide attempt [...] as well.Patient during last admission went to [facility] for residential treatment. Patient has history of residential treatment at [facility]. Patient patient is unable to identify [...] without any children and living alone in [place]. Patient reports he experiences housing instability and does not have any stable place to live. Patient reports that he has no contact with his mother and he has never met his father. Patient reports he does not have any siblings. Patient reports he was born and raised in [place] by primarily his mother's adoptive parents. Patient [...] GED while he was in the [employer]. Patient reports he is not currently working. Patient denies SI/SSD. Cultural/Spirituality/Leisure: Patient denies any cultural needs or concerns at the current time. Patient denies any mosque preference at the current time. Patient reports [...] for SA by OD. [facility] [place]. Patient has additional admissions to [facility]. Patient reports Hx of SI where he [...] suicide attempt by overdose. Patient wassent to [facility] then ultimately [facility] in [place] for stabilization. Patient has additional admissions to [facility]. Patient reports past history of suicide attempt [...] need to be in a psych morley. SHAREPOINT ENGINEER asked if patient was at risk for harming himself or others while on the unit. He denied at current time. Patient reports that his mother feels that he needs mental health treatment as well. SHAREPOINT ENGINEER explained that patient was currently on the unit for detox and addiction medicine needs. Patient is declining any assistance with addiction medicine and interested in walk-in appointment with [facility]. SHAREPOINT ENGINEER offered to include information in patient's discharge paperwork and he was agreeable to this. Patient encouraged to engage in all activities that are offered to them while they are on the unit.Patient report needing additional current time. Patient encouraged to seek out [facility] unit staff should they identify any [...] to contact the dictating provider for clarification. [facility] WestQelbza44-21-2697 Note* Care Coordination - VANITA Toribio - 08/11/2023 7:48 AM EDT Behavioral Health Psycho-Social Assessment (Social Work) Date: 08/11/2023 Patient Name: Roro Valdivia : 1985 Identifying Information: Patient is a 37-year-old male admitted to for detox and alcohol. Patient is known to addiction medicine team was previously on unit on 11/03/2022. Patient was sent directly to [facility] for residential treatment. [facility] Patient reports that he went to [facility] for 3 months. He [...] Patient subsequently came in with yellow slip. SHAREPOINT ENGINEER communicated with nursing housekeeping supervisor hotel as well as Dr. Escobar. Presenting Problem: [...] attempt by overdose. Patient was sent to [facility] in [place] for stabilization. Patient has additional admissions to [facility]. Patient reports past history of suicide attempt [...] as well.Patient during last admission went to [facility] for residential treatment. Patient has history of residential treatment at [facility]. Patient patient is unable to identify [...] without any children and living alone in [place]. Patient reports he experiences housing instability and does not have any stable place to live. Patient reports that he has no contact with his mother and he has never met his father. Patient reports he does not have any siblings. Patient reports he was born and raised in [place] by primarily his mother's adoptive parents. Patient [...] his GED while he was in the [employer]. Patient reports he is not currently working. Patient denies SI/SSD. Cultural/Spirituality/Leisure: Patient denies any cultural needs or concerns at the current time. Patient denies any mosque preference at the current time. Patient reports [...] was [facility] in [place]. Patient has additional admissions to [facility]. Patient reports Hx of SI where he [...] suicide attempt by overdose. Patient wassent to [facility] then ultimately [facility] in [place] for stabilization. Patient has additional admissions to [facility]. Patient reports past history of suicide attempt [...] need to be in a psych morley. SHAREPOINT ENGINEER asked if patient was at risk for harming himself or others while on the unit. He denied at current time. Patient reports that his mother feels that he needs mental health treatment as well. SHAREPOINT ENGINEER explained that patient was currently on the unit for detox and addiction medicine needs. Patient is declining any assistance with addiction medicine and interested in walk-in appointment with [facility]. SHAREPOINT ENGINEER offered to include information in patient's discharge paperwork and he was agreeable to this. Patient encouraged to engage in all activities that are offered to them while they are on the unit.Patient report needing additional current time. Patient encouraged to seek out SHAREPOINT ENGINEER unit staff should they identify any additional [...] to contact the dictating provider for clarification. [facility] WestYsfctc09-38-4709 Emergency department Note* Janine Lino RN - 08/11/2023 2:42 AM EDT Pt being transported to with transporter and protective services. Pt in NAD and ambulatory to wheelchair upon leaving ED. Denied needs or concerns. Left with 2 bags of belongings and admission packet Janine Lino RN 08/11/23 0247 [facility] WestGdtnff12-82-0379 Emergency department Note* Janine Lino RN - [...] EDT PS escort called for pt transfer [facility] Singh 08/11/23 0217 * Baetris Parada RN - 08/11/2023 2:00 AM EDT Report to JOSE GUADALUPE Mehta RN 08/11/23 0201 * Beatris Parada RN - 08/11/2023 1:56 AM EDT Report called to JOSE GUADALUPE Bhardwaj on 4E Beatris Parada RN 08/11/23 0156 * [facility]37 AM EDT Pt used urinal in [facility] Singh 08/11/23 0037 * [facility] 08/11/2023 12:32 AM EDT JOSE GUADALUPE Mehta in [facility] Singh 08/11/23 0032 * Edilma Otoole - 08/10/2023 11:09 PM EDT Pt requesting meds for nausea. Edilma Otoole 08/10/23 2309 * Greer Singh - 08/10/2023 10:47 PM EDT Pt is standing at door, trying to come out of . Redirected to get back to bed bc of IV [facility] Singh 08/10/23 2248 * Janine Lino RN - 08/10/2023 10:34 PM EDT Pt reminded to keep arm straight for fluid infusion at this time - still has about 800mL remaining in bag Janine Lino RN 08/10/232233 * Greer Singh - 08/10/2023 10:23 PM EDT JOSE GUADALUPE Gonzalez at bedside [facility] Singh 08/10/232222 * Greer Singh - 08/10/2023 9:29 PM EDT JOSE GUADALUPE Gonzalez in rm for IV [facility] Singh 08/10/232128 * Janine Lino RN - 08/10/2023 9:08 PM EDT Pt told Dr. Jiang and ESTRELLA Angulo that he is not suicidal or homicidal at this time - denying any suicidal ideations Janine Lino RN 08/10/232229 * [facility]er Singh - 08/10/2023 9:07 PM EDT Kev DE LA ROSA in [facility] Singh 08/10/232107 * Greer Singh - 08/10/2023 9:05 PM EDT Pt says he is throwing up really bad, but on dry heaving [facility] Singh 08/10/232104 * [facility] - 08/10/2023 8:52 PM EDT JOSE GUADALUPE Gonzalez in [facility] Singh 08/10/232051 * [facility] - 08/10/2023 8:45 PM EDT Pt wanded by PS [facility] Singh 08/10/232044 * Janine Lino RN [...] this time Janine Lino RN 08/10/232046 * [facility] 08/10/2023 8:44 PM EDT Pt has 2 bags [facility] 08/10/232043 * [facility] - 08/10/2023 8:[address] Jiang at bedside [facility] 08/10/232042 * [facility] - 08/10/2023 8:42 PM EDT JOSE GUADALUPE Gonzalez [facility] 08/10/232041 * [facility] - 08/10/2023 8:29 PM EDT Medic Brandy is in to get pt changed into gowns and non slip socks [facility] 08/10/232028 * [facility] 08/10/2023 8:23 PM EDT Pt is tearful while laying in bed [facility] 08/10/232022 * [facility] - 08/10/2023 8:21 PM EDT Pt brought to by JOSE GUADALUPE Gonzalez via [facility] Singh 08/10/232021 * Tana Christensen PA-C - 08/10/2023 7:36 PM EDT Emergency Department Encounter [facility] Patient: Roro Valdivia : 1985 [...] for clarification) Tana Christensen PA-C Acute Care [facility] Tana Christensen PA-C 08/10/232026 * Kev Carballo PA-C - 08/10/2023 7:36 PM EDT Emergency Department Encounter [facility] Patient: Roro Valdivia : 1985 [...] endorse seizures with detox in the past [place] I was wearing a N95, Surgical mask [...] 0 min Stress: Stress Concern Present (11/04/2022) [employer] [place] [employer] - Occupational Stress Questionnaire Feeling of Stress : To some extent Social Connections: Socially Isolated (06/24/2023) Social Connection and Isolation Panel [NHANES] Frequency of Communication with Friends and Family: More than three times a week Frequency of Social Gatherings with Friends and Family: More than three times a week Attends Latter-Day Services: Never Active Member of Clubs or [...] Slight (A) (none) Polychromasia Rare (A) (none) [place] Cells Rare (A) (none) Neutrophils % 37 [...] Department Physician in the absence of a publications designer. see their note for interpretation of EKG. [...] New Prescriptions No medications on file @[facility]([id number]:LAST:1)@ (Please note: Portions of this note were completed with a voice recognition program. Efforts were made to edit the dictations but occasionally words and phrases are mis-transcribed.) Form [id number] Kev Carballo PA-C Acute Care [facility] Kev Carballo PA-C 08/11/23 0521 * Jossy Lynn MD - 08/10/2023 7:36 PM EDT Emergency Department Encounter [facility] Patient: Roro Valdivia : 1985 [...] 08/11/23 0221 -- Right arm Focused exam: [id number] in no acute distress. Alert and oriented [...] Culture. Procedure Abnormality Status --------- ------ Complete Urinalysis[[id number]] Normal Final result Please view results for [...] Lynn MD 08/11/23 0252 documented in this [facility]07-02-2024 Emergency department Note* Brandy Guzman, EMT - 08/11/2023 2:41 AM EDT Transport here with protective services to escort pt to [facility], pt sent with 2 bags of belongings. Brandy Guzman EMT 08/11/23 0242 [facility] WestApkfsj92-52-5986 Emergency department Note* [facility] - 08/11/2023 2:17 AM EDT PS escort called for pt transfer [facility] 08/11/23 0217 [facility] WestVnbczl05-19-1781 Emergency department Note* Beatris Parada RN - 08/11/2023 2:00 AM EDT Report to JOSE GUADALUPE Mheta RN 08/11/23 0201 [facility] WestUgexcu70-66-9936 Emergency department Note* Beatris Parada RN - 08/11/2023 1:56 AM EDT Report called to JOSE GUADALUPE Bhardwaj on 4E Beatris Parada RN 08/11/23 0156 [facility] WestFbvjnk16-83-2576 Emergency department Note* [facility] - 08/11/2023 12:37 AM EDT Pt used urinal in [facility] 08/11/23 0037 [address]Hvtovk44-76-0333 Emergency department Note* [facility] - 08/11/2023 12:32 AM EDT JOSE GUADALUPE Mehta in [facility] 08/11/23 0032 [facility] WestQbizdc56-83-2678 Emergency department Note* Edilma Otoole - 08/10/2023 11:09 PM EDT Pt requesting meds for nausea. Edilma Otoole 08/10/23 2309 [facility] WestVeegiq06-10-0684 Emergency department Note* [facility] - 08/10/2023 10:47 PM EDT Pt is standing at door, trying to come out of rm. Redirected to get back to bed bc of IV [facility] 08/10/23 2248 [facility] WestYozsws70-99-1056 Emergency department Note* Janine Lino RN - 08/10/2023 10:34 PM EDT Pt reminded to keep arm straight for fluid infusion at this time - still has about 800mL remaining in bag Janine Lino RN 08/10/23 2234 [facility] WestJkngfs31-17-4942 Emergency department Note* [facility] 08/10/2023 10:23 PM EDT JOSE GUADALUPE Gonzalez at bedside [facility] 08/10/23 2223 [facility] WestKtehyg28-59-6103 NoteNOTE: This result is for medical treatment only. Analysis performed using non-forensic procedures. [facility] WestUupseb93-91-5572 Emergency department Note* [facility] - 08/10/2023 9:29 PM EDT JOSE GUADALUPE Gonzalez in for IV [facility] 08/10/232128 [facility] WestZezrqv69-28-1068 Emergency department Note* Janine Lino RN - 08/10/2023 9:08 PM EDT Pt told Dr. Jiang and ESTRELLA Angulo that he is not suicidal or homicidal at this time - denying any suicidal ideations Janine Lino RN 08/10/232229 [facility] WestTdfjfv41-00-5222 Emergency department Note* [facility] - 08/10/2023 9:07 PM EDT Kev DE LA ROSA in [facility] 08/10/232107 [facility] WestRmifnn77-27-3724 Emergency department Note* [facility] - 08/10/2023 9:05 PM EDT Pt says he is throwing up really bad, but on dry heaving [facility] 08/10/232104 [facility] WestUwjqfv59-56-8426 Emergency department Note* [facility] - 08/10/2023 8:52 PM EDT JOSE GUADALUPE Gonzalez in [facility] 08/10/232051 [facility] WestTsqcij69-91-8761 Emergency department Note* [facility] - 08/10/2023 8:45 PM EDT Pt wanded by MARCOS [facility] 08/10/232044 [address]Ztvsbm38-69-0307 Emergency department Note* Janine Lino RN - [...] at this time Janine Lino RN 08/10/232046 [facility] WestAyfore32-99-2807 Emergency department Note* [facility] - 08/10/2023 8:44 PM EDT Pt has 2 bags [facility] 08/10/232043 [facility]ctljr10-41-5817 [facility]* [facility] Jiang at bedside [facility] 08/10/232042 [facility] WestCtbawo94-92-9746 Emergency department [facility]* [facility] 8:42 PM EDT JOSE GUADALUPE Gonzalez at bedside [facility] 08/10/232041 [facility] WestArrulv66-44-5458 Emergency department Note* [facility] - 08/10/2023 8:29 PM EDT Medic Brandy is in rm to get pt changed into gowns and non slip socks [facility] 08/10/232028 [facility] WestLiwxul61-87-7303 Emergency department Note* [facility] 8:23 PM EDT Pt is tearful while laying in bed [facility] 08/10/232022 [facility] WestZqccxs42-78-0306 Emergency department Note* [facility] 8:21 PM EDT Pt brought to by JOSE GUADALUPE oGnzalez, via [facility] 08/10/232021 [facility] WestEeiuui91-96-7056 Physician Emergency department Note* Tana Christensen PA-C - 08/10/2023 7:36 PM EDT Emergency Department Encounter [facility] EM[facility]GENCY [facility] Patient: Roro Valdivia : 1985 [...] [employer] Tana Christensen PA-C 08/10/232026 [facility] Phone: [phone] 425-883307-01-2024 Physician Emergency department Note* Kev Carballo PA-C - 08/10/2023 7:36 PM EDT Emergency Department Encounter [facility] EM[facility] Patient: Roro Valdivia : 1985 [...] endorse seizures with detox in the past [place] I was wearing a N95, Surgical mask [...] Hypertension Pancreatitis Seizures (HCC) SVT (supraventricular tachycardia) ([facility]) Tourette syndrome Past Surgical History: Procedure Laterality [...] 0 min Stress: Stress Concern Present (11/04/2022) [employer] [place] [employer] - Occupational Stress Questionnaire Feeling of Stress : To some extent Social Connections: Socially Isolated (06/24/2023) Social Connection and Isolation Panel [NHANES] Frequency of Communication with Friends and Family: More than three times a week Frequency of Social Gatherings with Friends and Family: More than three times a week Attends Latter-Day Services: Never Active Member of Clubs or [...] Department Physician in the absence of a publications designer. see their note for interpretation of EKG. [...] New Prescriptions No medications on file @[facility]([id number]:LAST:1)@ (Please note: Portions of this note were completed with a voice recognition program. Efforts were made to edit the dictations but occasionally words and phrases are mis-transcribed.) Form [id number].[id number] Kev Carballo PA-C [facility] Kev Carballo PA-C 08/11/23 0521 [facility] WestMxerkd68-53-2653 Physician Emergency department Note* Jossy Lynn MD - 08/10/2023 7:36 PM EDT Emergency Department Encounter [facility] Patient: Roro Valdivia : 1985 [...] 07/02/24 0221 -- Right arm Focused exam: Ppi-akw-hxulghrxj in no acute distress. Alert and oriented [...] (*) Macrocytes Slight (*) Polychromasia Rare (*) [place] Cells Rare (*) Neutrophils % 37 (*) [...] Culture. Procedure Abnormality Status --------- ------ Complete Urinalysis[[id number]] Normal Final result Please view results for [...] [facility] Jossy Lynn MD 08/11/23 0252 [facility] Phone: [phone] Telephone encounter Note* Telephone Encounter - Branden Maldonado - 07/16/2023 3:08 PM EDT Patient next appt 07/22/2023 Patient cancelled 07/15/23 appt and missed 07/01/23 and 07/08/23 appt . [id number] Miscellaneous Notes* Telephone Encounter - Branden Maldonado [...] up the medication: Yes documented in this [facility]06-06-2024 Telephone encounter Note* Telephone Encounter - Millicent [...] prior to picking up the medication: [facility] History of Present illness Narrative* Stone Ramsey [...] 5PM-7AM: Page AI2 or AI3 (In house [employer]spring Fabrication Supervisor) * Stone Ramsey MD - 06/27/2023 12:35 [...] 5PM-7AM: Page AI2 or AI3 (In house [employer] Fabrication Supervisor) * Stone Ramsey MD - 06/26/2023 11:53 [...] be monitored and followed by the diet it service technician. RALPH Everett * Maryana Sandoval [...] daily - Diet: General documented in this [facility]05-19-2024 Plan of care note* Care Plan - [...] Free from fall injury Outcome: Progressing . [facility]Tgsshw50-65-1012 Miscellaneous Notes* Care Plan - Giovanna Mena [...] Limits Permission given to speak with patient shared services representative/caregiver as indicated: No Confirmation of Payer with patient/family: Payer Name: [employer] [place]: No Confirmation of Primary Care Physician: No [...] no increase in CIWA documented in this [facility]05-18-2024 Plan of care note* Care Plan - [...] scheduled meds well without experiencing withdrawal symptoms. [facility] WestJmqhfi49-85-6971 Hospital Discharge instructions* Discharge Instructions* Nevaeh Brooks MD - 06/26/2023 12:32 PM EDT [facility] [address] [place] [id number] Walk in hours: Thursday-Thursday [phone], [place] [id number] Please make appointment with Dr. Hilton regarding psychiatric medication refills, you will get refills of venlafaxine and zyprexa for one month at pharmacy of choice at discharge. Further refills through your psychiatric team. Please make appointment with PCP within 1-2 weeks - would recommend outpatient ultrasound of liver for elevated liver function tests. Please call [place] or [place] for information on IOP documented in this [facility]05-17-2024 Note* Care Coordination - Renetta Juarez RN - 06/26/2023 11:18 AM EDT Care Managment Initial Assessment Date: 06/26/2023 Patient Name: Roro Valdivia : 1985 Patient Information Source of Information: Patient Cognition/Language: WFL - Within Functional Limits Permission given to speak with patient shared services representative/caregiver as indicated: No Confirmation of Payer [...] at discharge. Renetta Juarez RN [facility]05-17-2024 Note* Care Coordination - Renetta Juarez RN - 06/26/2023 11:18 AM EDT Care Managment Initial Assessment Date: 06/26/2023 Patient Name: Roro Valdivia : 1985 Patient Information Source of Information: Patient Cognition/Language: WFL - Within Functional Limits Permission given to speak with patient shared services representative/caregiver as indicated: No Confirmation of Payer [...] Anticipate home at discharge. Renetta Juarez RN [employer] [id number] Plan of care note* Care Plan - [...] barriers include continue to follow ADM's recommendations. [employer] [id number] Consult note* JOSÉ ANTONIO Scruggs CNP - 06/26/2023 8:56 AM EDTAssociated Order(s): IP CONSULT TO PSYCHIATRY [facility] Department of Psychiatry Nurse Practitioner Note *Please contact Manager Financial Reporting Psychiatry Listed in [facility] On-Call Finder Thu-Thu: From 1700 - 0800 and on Thursday & Thursday* TODAY'S DATE: 06/26/23 ADMISSION DATE: 06/24/2023 IDENTIFYING INFORMATION Name: Roro Valdivia : 1985 Reason for Consult: feelings of depression, thoughts of not wanting to live. Denies plan/intent. pt reports these feelings led to polysubstance use relapse Consulting Practitioner: Fatuma Hess APRN-TAPE RULES PRINTING MACHINE OPERATOR Hospital Day: 2 SUBJECTIVE: CHIEF COMPLAINT: CC: [...] 37 y.o., male who was hospitalized at [facility] for Alcohol use disorder on 06/24/2023. [...] panic Past/Current mental health outpatient care includes: [facility] Previous psychiatric hospitalizations: yes, 2022 PPES [...] mg, 5 mg, Oral, Nightly, Fatuma Hess, NURSE HEALTHCARE MANAGER - TAPE RULES PRINTING MACHINE OPERATOR ondansetron ODT (Zofran-ODT) disintegrating tablet 4 mg, [...] History of pancreatitis 01/07/2023 Hypertension Pancreatitis Seizures ([facility]) SVT (supraventricular tachycardia) Tourette syndrome Past Surgical History: Procedure Laterality Date APPENDECTOMY Family History Problem Relation Name Age of Onset No Known Problems Mother No Known Problems Father Social History: Single, lives in [place], no family support. Has GED, unemployed. No [...] 0 min Stress: Stress Concern Present (11/04/2022) [employer] [place] [employer] - Occupational Stress Questionnaire Feeling of Stress : To some extent Social Connections: Socially Isolated (06/24/2023) Social Connection and Isolation Panel [NHANES] Frequency of Communication with Friends and Family: More than three times a week Frequency of Social Gatherings with Friends and Family: More than three times a week Attends Latter-Day Services: Never Active Member of Clubs or [...] record on the day of the visit. [facility] Phone: [phone]) 385-432105-17-2024 Consult note* JOSÉ ANTONIO Scruggs CNP - 06/26/2023 8:56 AM EDTAssociated Order(s): IP CONSULT TO PSYCHIATRY [facility] Department of Psychiatry Nurse Practitioner Note *Please contact Manager Financial Reporting Psychiatry Listed in [facility] On-Call Finder Mon-Fri: From 1700 - [...] 37 y.o., male who was hospitalized at [facility] for Alcohol use disorder on 06/24/2023. [...] panic Past/Current mental health outpatient care includes: [facility] Previous psychiatric hospitalizations: yes, 2022 PP[facility] [...] mg, 5 mg, Oral, Nightly, Fatuma Hess, NURSE HEALTHCARE MANAGER - TAPE RULES PRINTING MACHINE OPERATOR ondansetron ODT (Zofran-ODT) disintegrating tablet 4 mg, [...] History of pancreatitis 01/07/2023 Hypertension Pancreatitis Seizures ([facility]) SVT (supraventricular tachycardia) Tourette syndrome Past Surgical History: Procedure Laterality Date APPENDECTOMY Family History Problem Relation Name Age of Onset No Known Problems Mother No Known Problems Father Social History: Single, lives in [place], no family support. Has GED, unemployed. No [...] 0 min Stress: Stress Concern Present (11/04/2022) [employer] [place] [employer] - Occupational Stress Questionnaire Feeling of Stress : To some extent Social Connections: Socially Isolated (06/24/2023) Social Connection and Isolation Panel [NHANES] Frequency of Communication with Friends and Family: More than three times a week Frequency of Social Gatherings with Friends and Family: More than three times a week Attends Latter-Day Services: Never Active Member of Clubs or [...] EDTAssociated Order(s): IP CONSULT TO ADDICTION [facility] Consult service H&P Admit Date: 06/24/2023 Primary [...] 0 min Stress: Stress Concern Present (11/04/2022) [employer] [place] [employer] - Occupational Stress Questionnaire Feeling of Stress : To some extent Social Connections: Socially Isolated (06/24/2023) Social Connection and Isolation Panel [NHANES] Frequency of Communication with Friends and Family: More than three times a week Frequency of Social Gatherings with Friends and Family: More than three times a week Attends Latter-Day Services: Never Active Member of Clubs or [...] ODT OR ondansetron, polyethylene glycol (PEG) 3350 @[id number]@ Plan 1. Alcohol use disorder severe with [...] 06/25/2023 at 1:32 PM documented in this [facility]05-16-2024 Plan of care note* Care Plan - [...] falls this shift, no increase in CIWA [facility]Fuzwyl39-14-8447 Emergency department Note* Ashlyn Aquino RN - 06/25/2023 3:10 PM EDT Report to Apolonia Aquino RN 06/25/23 1510 [facility]Srdraj42-12-9736 Emergency department Note* Ashlyn Aquino RN - [...] RN - 06/24/2023 9:11 PM EDT This [facility] RN met with pt, pt presented [...] other out patient addiction care services at [facility]. Pending lab results, plan is to admit pt to detox unit. Baljinder James RN 06/24/232117 * Jossy Lynn MD - 06/24/2023 6:20 PM EDT Emergency Department Encounter [facility] EM[facility]GENC[facility] DEPT Patient: Roro Valdivia : 1985 [...] Location FiO2 (%) -- -- Focused exam: Rho-cbh-sjtarkfmb in no acute distress. Alert and oriented [...] Procedure Abnormality Status --------- ------ Comprehensive metabolic p...[[id number]] Please view results for these tests on [...] Lynn MD 06/25/23 0117 documented in this [facility]05-16-2024 Consult note* Stone Ramsey MD - 06/25/2023 1:32 PM EDTAssociated Order(s): IP CONSULT TO [facility] Consult service H&P Admit Date: 06/24/2023 Primary [...] History of pancreatitis 01/07/2023 Hypertension Pancreatitis Seizures ([facility]) SVT (supraventricular tachycardia) Tourette syndrome Past Surgical [...] 0 min Stress: Stress Concern Present (11/04/2022) [employer] [place] [employer] - Occupational Stress Questionnaire Feeling of Stress : To some extent Social Connections: Socially Isolated (06/24/2023) Social Connection and Isolation Panel [NHANES] Frequency of Communication with Friends and Family: More than three times a week Frequency of Social Gatherings with Friends and Family: More than three times a week Attends Latter-Day Services: Never Active Member of Clubs or [...] ODT OR ondansetron, polyethylene glycol (PEG) 3350 @[id number]@ Plan 1. Alcohol use disorder severe with [...] MD Addiction Medicine 06/25/2023 at 1:32 PM [facility]Iggqnd58-53-1766 NoteNOTE:These results are for medical treatment only. Analysis performed using non-forensic procedures. This test has not been cleared by the US Food and Drug Administration (FDA). The FDA has determinedthat such clearance or approval is not necessary. The performance chararcteristics have been determined by the clinical laboratories of [facility] WestIxiwel81-80-0828 NoteNOTE:These results are for medical treatment only. Analysis performed using non-forensic procedures. This test has not been cleared by the US Food and Drug Administration (FDA). The FDA has determinedthat such clearance or approval is not necessary. The performance chararcteristics have been determined by the clinical laboratories of [facility] WestSugdkc79-24-6692 Emergency department Note* Beatris Parada RN - 06/25/2023 3:21 AM EDT Report to JOSE GUADALUPE Goldberg RN 06/25/23 0321 [facility] WestIbqpjf00-08-7632 Emergency department Note* Beatris Parada RN - 06/25/2023 12:51 AM EDT Pt out of bed sitting in chair at bedside stating that he could not sleep due to his anxiety so he is sitting in the chair for a little bit. Will continue to monitor. Beatris Parada RN 06/25/23 0052 [facility]Zwknhr90-27-2844 History and physical note* Clementine Phelan Alireza, [...] and SVT with palpitations that presented to [facility] on 06/24/2023 from home with alcohol intoxication [...] History of pancreatitis 01/07/2023 Hypertension Pancreatitis Seizures ([facility]) SVT (supraventricular tachycardia) Tourette syndrome Past Surgical [...] hours as needed for wheezing. 11/12/22 11/12/23 Moultrie Royal Hilton DO buprenorphine-naloxone (Suboxone) 8-[address] 1 tablet under the tongue daily for 28 days. 04/29/23 05/27/23 Thiago Royal Hilton DO cloNIDine (Catapres) 0.1 MG tablet Take 1 tablet (0.1 mg) by mouth 2 times daily. 11/12/22 11/12/23 [facility] DO Lida hydrOXYzine pamoate (Vistaril) 50 MG capsule Take 1 capsule (50 mg) by mouth every 6 hours as needed for allergies or anxiety. 12/10/22 05/17/23 [facility] Lida DO metoprolol succinate XL (Toprol-XL) 25 MG 24 hr tablet Take 2 tablets (50 mg) by mouth daily. Do not crush or chew. 03/18/23 05/17/23 [facility] DO Lida nicotine (Nicoderm CQ) 21 MG/24HR patch Place 1 patch on the skin Every 24 hours. 11/15/22 12/15/22 Carlitos Orta MD OLANZapine (ZyPREXA) 5 MG tablet Take 1 tablet (5 mg) by mouth Nightly. Patient taking differently: Take 7.5 mg by mouth Nightly. 11/12/22 06/10/23 Moultrie oRyal Hilton DO omeprazole (PriLOSEC) [address] capsule Take 1 capsule (20 mg) by mouth every morning (before breakfast). Do not crush or chew. 12/10/22 Moultrie Royal Hilton DO ondansetron ODT (Zofran-ODT) 4 MG disintegrating tablet Take 1 tablet (4 mg) by mouth every 8 hoursas needed for nausea or vomiting. 11/12/22 Moultrie Royal Hilton DO traZODone (Desyrel) 50 MG [...] Phenobarb taper. - ADM has maite consulted. [facility] [id number] History and physical note* Clementine Lay DO [...] and SVT with palpitations that presented to [facility] on 06/24/2023 from home with alcohol intoxication [...] ADM has maite consulted. documented in this [facility]05-15-2024 Emergency department Note* Beatris Parada RN - [...] will continue tomonitor. Beatris Parada RN 06/24/232205 [facility]Ecekbw49-89-5719 Emergency department Note* Baljinder James RN - 06/24/2023 9:40 PM EDT Report given to Tyree SHI, pt moved to ED room 27. Baljinder James RN 06/24/232140 [facility]Mjowal77-44-3437 NoteNOTE: This result is for medical treatment only. Analysis performed using non-forensic procedures. [facility] WestMjyooe07-44-6092 Emergency department Note* Baljinder James RN - 06/24/2023 9:11 PM EDT This [facility] RN met with pt, pt presented [...] collected and sent. Pt accepted information on [facility]. Pt refused i nformation on other out patient addiction care services at [facility]. Pending lab results, plan is to admit pt to detox unit. Baljinder James RN 06/24/232117 [facility] WestNeorkc46-23-7346 Physician Emergency department Note* Jossy Lynn MD [...] Location FiO2 (%) -- -- Focused exam: Hal-tbw-dobysshlr in no acute distress. Alert and oriented [...] Procedure Abnormality Status --------- ------ Comprehensive metabolic p...[[id number]] Please view results for these tests on [...] words are mis-transcribed.) Jossy Lynn MD Acute [facility] Jossy Lynn MD 06/25/23 0117 [facility] WestRoduhl44-62-9039 Telephone encounter Note* Telephone Encounter - Josy Hernandez - 06/15/2023 3:00 PM EDT Spoke w pnt. Appt made and refill request sent [facility] WestZufkes15-37-9423 Miscellaneous Notes* Telephone Encounter - Josy Hernandez [...] Medication Name: Buprenorphine-Naloxone (Suboxone) documented in this [facility] HospitalIxwlul60-65-2027 Telephone encounter Note* Telephone Encounter - Joanne [...] if any: Yes Medication Name: Buprenorphine-Naloxone (Suboxone) [facility] WestFpfrsx67-69-8783 History of Present illness Narrative* Thiago Hilton [...] any illicit drug use to either the correctional casework specialist or myself/my staff. 5. Keep medicine out [...] MD 05/07/23 4:44 PM documented in this [facility]03-20-2024 History of Present illness Narrative* Thiago Hilton [...] any illicit drug use to either the correctional casework specialist or myself/my staff. 5. Keep medicine out [...] stated that they are currently in the [facility]. If the patient is a minor, permission has been obtained by the parent or guardian for the patient to receive medical care at this visit. documented in this [facility]03-20-2024 History of Present illness Narrative* Thiago Hilton [...] any illicit drug use to either the correctional casework specialist or myself/my staff. 5. Keep medicine out [...] that they are currently in the state [facility]. If the patient is a minor, permission [...] MD 05/11/23 3:57 PM documented in this [facility]02-07-2024 History of Present illness Narrative* Thiago Hilton [...] any illicit drug use to either the correctional casework specialist or myself/my staff. 5. Keep medicine out [...] MD 03/19/23 3:30 PM documented in this [place] [address]-07-2024 History of Present illness Narrative* Thiago Paige [...] any illicit drug use to either the correctional casework specialist or myself/my staff. 5. Keep medicine out [...] MD 03/19/23 3:30 PM documented in this [facility]01-22-2024 Telephone encounter Note* Telephone Encounter - Fabiana Murray - 03/02/2023 7:16 AM EST Pharmacy Requested the following medication [facility]Nyqpyr40-87-9428 Miscellaneous Notes* Telephone Encounter - Fabiana Murray - 03/02/2023 7:16 AM EST Pharmacy Requested the following medication documented in this [facility]11-30-2023 History of Present illness Narrative* Erin Arce [...] still positive, will treat documented in this [facility]11-29-2023 History of Present illness Narrative* Erin Arce MD - 01/07/2023 8:00 AM EST Images from the original note were not included. [facility] Infectious Diseases Attending Outpatient Consult Note Reason for Consult: Positive Quantiferon test Requesting Physician: Dr JOSE J Milian Chief Complaint Patient presents with New Patient New pt here for positive quantiferon HISTORY OF PRESENT ILLNESS The patient is a 37 y.o. man with presents because of screening Quantiferon test for TB while at a sober house. He is currently in treatment, at [facility], with Suboxone for polysubstance abuse including opiates,cocaine, [...] 0 min Stress: Stress Concern Present (11/04/2022) [employer] [place] [employer] - Occupational Stress Questionnaire Feeling of Stress : To some extent Social Connections: Unknown (11/04/2022) Social Connection and Isolation Panel [NHANES] Frequency of Communication with Friends and Family: Patient refused Frequency of Social Gatherings with Friends and Family: Patient refused Attends Latter-Day Services: Patient refused Active Member of Clubs [...] Arce MD, MD, FACP documented in this [facility]11-29-2023 History of Present illness Narrative* Erin Arce MD - 01/07/2023 8:00 AM EST Images from the original note were not included. [facility] Infectious Diseases Attending Outpatient Consult Note Reason [...] >0.9) He is currently in treatment, at [facility], with Suboxone for polysubstance abuse including opiates,cocaine, [...] 0 min Stress: Stress Concern Present (11/04/2022) [employer] [place] [employer] - Occupational Stress Questionnaire Feeling of Stress : To some extent Social Connections: Unknown (11/04/2022) Social Connection and Isolation Panel [NHANES] Frequency of Communication with Friends and Family: Patient refused Frequency of Social Gatherings with Friends and Family: Patient refused Attends Latter-Day Services: Patient refused Active Member of Clubs [...] Arce MD, MD, FACP documented in this [facility]11-07-2023 Hospital Discharge instructions* Discharge Instructions* Tania Payne DO - 12/16/2022 11:44 PM EST We have referred you to see infectious disease outpatient. Follow-up with them as soon as possible to go over future treatment options for your positive TB test. As you can follow-up with your primary care doctor as needed. documented in this [facility]11-07-2023 Emergency department Note* Jovita Thompson RN - 12/16/2022 10:52 PM EST Pt to CT. Jovita Thompson RN 12/16/222251 [id number] Emergency department Note* Jovita Thompson RN - 12/16/2022 10:52 PM EST Pt to CT. Jovita Thompson RN 12/16/222251 * Jovita Thompson RN - 12/16/2022 6:04 PM EST Report to JOSE GUADALUPE Garland. Jovita Thompson RN 12/16/22 1805 * Duong Milian MD - 12/16/2022 2:19 PM EST Emergency Department Encounter [facility] EMERGENCY DEPT Patient: Roro Valdivia : 1985 [...] dictating provider for clarification.) Duong Milian MD [facility] Spoke with ID since he is [...] Garsia RN 12/16/22 1639 documented in this [facility]11-07-2023 Emergency department Note* Jovita Thompson RN - 12/16/2022 6:04 PM EST Report to JOSE GUADALUPE Garland. Jovita Thompson RN 12/16/22 1805 [place] [id number] Emergency department Note* Smita Garsia RN - 12/16/2022 2:19 PM EST Bed: 05 Expected date: Expected time: Means of arrival: Comments: LIANET Garsia RN 12/16/22 1639 [place] [id number] Physician Emergency department Note* Duong Milian MD - 12/16/2022 2:19 PM EST Emergency Department Encounter [facility] EMERGENCY DEPT Patient: Roro Valdivia : 1985 [...] dictating provider for clarification.) Duong Milian MD [facility] Spoke with ID since he is having night sweats they are recommending a CT scan of the chest if normal he can go home and if its positive would need admission for work-up of active tuberculosis. Patient will be placed in a negative pressure room. Duong Milian MD 12/16/22 1711 [employer] Phone: [phone] 245-167011-01-2023 History of Present illness Narrative* Thiago Hilton, [...] Program: Endorses prior (court-ordered) CD IOP through [facility].. [facility].. 12-Step Meeting Attendance: has gone in the past. Psychiatric History Diagnoses: Panic disorder without agoraphobia; Tourette disorder. Medications: see med list. Psychiatrist: seeing psych [facility]. Counselor: [facility] . Past Medical History Past Medical History: [...] 0 min Stress: Stress Concern Present (11/04/2022) [employer] [place] [employer] - Occupational Stress Questionnaire Feeling of Stress : To some extent Social Connections: Unknown (11/04/2022) Social Connection and Isolation Panel [NHANES] Frequency of Communication with Friends and Family: Patient refused Frequency of Social Gatherings with Friends and Family: Patient refused Attends Latter-Day Services: Patient refused Active Member of Clubs [...] esophagitis 2. Anxiety 3. Alcohol-induced insomnia (CMS/HCC) ([facility]) 4. Severe opioid use disorder ([facility]) PLAN Medications Ordered New Medications Ordered This [...] care exception (GE Modifier). documented in this [facility]10-12-2023 NoteHNO ID: [id number] Author: Constance Padilla, DO Service: ? Author Type: Resident Type: Progress Notes Filed: 12/08/2022 3:26 PM Note Text: [facility] BEHAVIORAL [facility]INE RESIDENT CLINIC INITIAL PSYCHIATRIC EVALUATION PATIENT: Roro Valdivia MRD: [id number] DATE: November 20, 2022 IDENTIFYING INFORMATION: Roro is a 37 year old male with a history of polysubstance use, opioid use disorder alcohol use disorder, anxiety, Tourette's syndrome, benzodiazepine abuse, fentanyl, crack cocaine use disorder. CHIEF COMPLAINT: 2 problems- panic attacks HPI: On interview today, patient reports they present to [facility] Psychiatry clinic for anxiety and panic attacks [...] 8-2 Suboxone by his addiction physician at [facility]. He reports anxiety and depression started [...] past, does not recall the name Agency: [facility] engineering manager: Patient reports he has a correctional casework specialist through his rehab Therapist: Denies follow-up with therapist Self harm: Denies Suicide attempts: denies Medication Trials: catapres, risperidone SOCIAL HISTORY: Born and raised: [place] Childhood: Never met dad- grandparents had custody- mom was partying and thus deter (more content not included)...[facility]10-07-2023 Telephone encounter Note* Telephone Encounter - Yuliya [...] R: Allergies reviewed and pharmacy verified - [facility]. Paged provider regional hr manager via secure chat - Dr. Soares. I sent a rx for a nicotine patch to [facility] on [facility]. Pt informed.Instructed to call back with any further questions or concerns. Reason for Disposition [1] Caller has URGENT medicine question about med that PCP or specialist prescribed AND [2] triagerunable to answer question Protocols used: Medication Question [id number] [facility] [id number] Miscellaneous Notes* Telephone Encounter - Yuliya Ford [...] R: Allergies reviewed and pharmacy verified - [facility]. Paged provider regional hr manager via secure chat - Dr. Soares. I sent a rx for a nicotine patch to [facility] on [address] Pt informed.Instructed to call back with any further questions or concerns. Reason for Disposition [1] Caller has URGENT medicine question about med that PCP or specialist prescribed AND [2] triagerunable to answer question Protocols used: Medication Question [id number] documented in this encounterSSelect Medical OhioHealth Rehabilitation HospitalZaqbzm02-44-6528 Telephone encounter Note* Telephone Encounter - Brianda Sabillon - 11/14/2022 4:43 PM EDT Patient called to check the status of the Rx for patches -- no pharmacy can get the inhalers -- he goes into rehab on Friday 11/17 and needs to get the patches prior to going in. Please advise. Thank you. [facility] HospitalHhqemj06-75-1529 Miscellaneous Notes* Telephone Encounter - Brianda Sabillon [...] of caller: Roro Valdivia Contact phone number: [phone] Relationship to Patient: patient Provider: Dr. Hilton [...] return their call: Yes documented in this [facility]10-06-2023 Telephone encounter Note* Telephone Encounter - Joanne Antonio - 11/14/2022 12:56 PM EDT Name of caller: Roro Migdaliakacey Contact phone number: [phone] Relationship to Patient: patient Provider: Dr. Hilton [...] business hours to return their call: Yes [facility] [id number] History of Present illness Narrative* Thiago Hilton, [...] History Inpatient Rehab: Prior residential treatment at [facility] in adolescence. Chem Dep IOP: Endorses prior (court-ordered) CD IOP through [facility]. Detoxifications: several most recent 06/2022 12 [...] Psychiatric History Current Psychiatrist: Previously aligned with [facility], and recommended by Psychiatry consult to follow-up there for mental health needs s/p detox and discharge Current Medications: Per Psychiatry consult recommendations, patient started on olanzapine 5 mg q HS Diagnoses: Panic disorder without agoraphobia; Tourette disorder Previous Medication Trials: Started on sertraline during last admission but self-discontinued d/t perceived lack of benefit Psychiatric Hospitalizations: Admitted to [facility] from [facility] 05/23/2022 for suicide attempt via overdose Previous [...] 0 min Stress: Stress Concern Present (11/04/2022) [employer] [place] [employer] - Occupational Stress Questionnaire Feeling of Stress : To some extent Social Connections: Unknown (11/04/2022) Social Connection and Isolation Panel [NHANES] Frequency of Communication with Friends and Family: Patient refused Frequency of Social Gatherings with Friends and Family: Patient refused Attends Latter-Day Services: Patient refused Active Member of Clubs [...] use disorder (HCC) 2. Alcohol-induced insomnia (CMS/HCC) ([facility]) 3. Mild intermittent asthma without complication 4. Anxiety 5. Tourette syndrome 6. Severe alcohol use disorder ([facility]) 7. Encounter for smoking cessation counseling 8. [...] care exception (GE Modifier). documented in this [facility]2023 Nurse Note* Fay Lara RN - 11/08/2022 2:25 PM EDT The patient was walked down to meet his step mom by our [facility]. His gait is steady and he is without complaint. He was handed his meds to beds as he left the unit. He changed into the clothes he wore into the hospital. [facility] [id number] Nurse Note* Fay Lara RN - 11/08/2022 2:25 PM EDT The patient was walked down to meet his step mom by [facility]. His gait is steady and he is [...] to monitor for safety. documented in this [facility]2023 Nurse Note* Fay Lara RN - 11/08/2022 [...] others. He denies any form of hallucinations. [facility] WestGxwquq54-96-5332 Hospital course Narrative* Louis Alexandre MD - [...] 0.191. This patient has been detoxified at [facility] in June 2022 but signed out AGAINST MEDICAL ADVICE. He is also been treated as an adolescent and that when [place] also was involved with the see the [facility] program through [place] [address] ordered. He [...] 0 min Stress: Stress Concern Present (11/04/2022) [employer] [place] [employer] - Occupational Stress Questionnaire Feeling of Stress : To some extent Social Connections: Unknown (11/04/2022) Social Connection and Isolation Panel [NHANES] Frequency of Communication with Friends and Family: Patient refused Frequency of Social Gatherings with Friends and Family: Patient refused Attends Latter-Day Services: Patient refused Active Member of Clubs [...] Date Alcohol withdrawal with inpatient treatment, uncomplicated ([facility]) 03/15/2022 GERD (gastroesophageal reflux disease) Hypertension Pancreatitis Seizures ([facility]) SVT (supraventricular tachycardia) ([facility]/H[facility]) ([facility]) Tourette syndrome Past Surgical History: Procedure Laterality [...] portions of the note are written utilizing Step[employer] software. While every effort is made todictate clearly and proofread, errors in the dictation may still occur. If there are any questions regarding the dictation please do not hesitate to contact the author. documented in this [facility]2023 Nurse Note* Fay Lara RN - 11/08/2022 11:14 AM EDT Mr. Valdivia has been up in the day area most of the morning with the exception of eating his breakfast. He has been drawing, building the puzzle and socializing with his peers. He has been making needs known to staff. [facility] [id number] Plan of care note* Care Plan - [...] Recommendations to address these barriers include nothing. [facility] WestOtqbot09-65-5848 Miscellaneous Notes* Care Plan - Baljinder James [...] 2:53 PM EDT Patient signed ARI for [facility] residential treatment program. SHAREPOINT ENGINEER faxed over referral information to agency. SHAREPOINT ENGINEER continue follow-up as necessary. t 2:53 PM * Care Coordination - VANITA Toribio - 11/04/2022 8:17 AM EDT Behavioral Health Psycho-Social Assessment (Social Work) Date: 11/04/2022 Patient Name: Roro Valdivia : 1985 Identifying Information: Patient is a 37-year-old male [facility] [...] by overdose (05/23/22). Patient was sent to [facility] then ultimately [facility] in [place] for stabilization. Patient has additional admissions to [facility]. Patient reports past history of suicide attempt [...] Patient has history of residential treatment at [facility]. Patient patient is unable to identify [...] without any children and living alone in [place]. Patient reports he experiences housing instability and does not have any stable place to live. Patient reports that he has no contact with his mother and he has never met his father. Patient reports he does not have any siblings. Patient reports he was born and raised in [place] by primarily his mother's adoptive parents. Patient [...] his GED while he was in the [facility]. Patient reports he is not currently working. Patient denies SI/SSD. Cultural/Spirituality/Leisure: Patient denies any cultural needs or concerns at the current time. Patient denies any mosque preference at the current time. Patient reports [...] by OD (05/23/22). Patient was sent to [facility] then ultimately [facility] in [place] for stabilization. additional admissions to [facility]. Patient reports Hx of SI where he [...] by overdose (05/23/22). Patient was sent to [facility] then ultimately [facility] in [place] for stabilization. Patient has additional admissions to [facility]. Patient reports past history of suicide attempt [...] plan is to attend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 instructions. Patient verbalized understanding and questions answered. Patient was A&O, ambulating with asteady gait, respirations easy and non labored, NAD, skin warm and dry Shruti Berg RN 07/11/22599 [facility] WestQnjaun63-44-3201 Emergency department Note* Shruti Berg RN - [...] GERD (gastroesophageal reflux disease) Hypertension Pancreatitis Seizures ([facility]) SVT (supraventricular tachycardia) ([facility]/HCC) ([facility]) Tourette syndrome SURGICAL HISTORY Past Surgical History: [...] In compliance with this authorization, please visit www.fda.gov/media/595188/download or www.fda.gov/media/543535/download to access the applicable information sheets. SALICYLATE [...] Culture. Procedure Abnormality Status --------- ------ Complete Urinalysis[[id number]] Abnormal Final result Please view results for [...] Ortiz DO 07/11/22 0545 documented in this [facility]06-02-2023 NoteNOTE: This result is for medical treatment only. Analysis performed using non-forensic procedures. [facility] WestWbkucr41-67-8277 Physician Emergency department Note* Shaan Ortiz DO [...] In compliance with this authorization, please visit www.fda.gov/media/443013/download or www.fda.gov/media/706779/download to access the applicable information sheets. SALICYLATE [...] Culture. Procedure Abnormality Status --------- ------ Complete Urinalysis[[id number]] Abnormal Final result Please view results for [...] 07/11/22 0228 Shaan Ortiz DO 07/11/22 0545 [facility] WestQnkqyc63-60-0133 Emergency department Note* JOSÉ ANTONIO Mercedes CNP [...] reflux disease) Hypertension Pancreatitis SVT (supraventricular tachycardia) ([facility]) ([facility]) Tourette syndrome SURGICAL HISTORY Past Surgical History: [...] PATIENT REFERRED TO: Neetu A Tino [address] [facility] [facility] [id number] Schedule an appointment as soon as possible [...] Mercedes CNP 06/12/22 1601 documented in this [facility]05-04-2023 Physician Emergency department Note* JOSÉ ANTONIO Mercedes [...] reflux disease) Hypertension Pancreatitis SVT (supraventricular tachycardia) ([facility]) ([facility]) Tourette syndrome SURGICAL HISTORY Past Surgical History: [...] 03:59:10 PM PATIENT REFERRED TO: Neetu Jiménez [address] [place] [address]., [address] [facility] [address] Schedule an appointment as soon [...] Provider JOSÉ ANTONIO Mercedes CNP 06/12/22 1601 [facility] WestJshubb59-85-4655 Emergency department Note* Ana Osorio RN - 05/25/2022 10:53 PM EDT DM transported patient without receiving report. Paperwork and 1 bag of belongings sent with QUANG Abrams. This RN was told that EMS stated they would remove IV. Ana Osorio RN 05/25/222254 Ana Osorio RN 05/25/222312 [facility] WestSgotal61-70-1988 Emergency department Note* Ana Osorio RN - [...] RN before leaving. Ems loaded pt to [facility] and transported with 1 belonging bag Jose [...] taken. Patient waiting to be transported to [facility]. Ana Osorio RN 05/25/222024 * Zarina Eduardo - 05/25/2022 6:29 PM EDT Meal tray at bedside. Zarina Eduardo 05/25/22 182 * Savanna Carvalho RN - 05/25/2022 6:18 PM EDT Pt resting in bed . Pt declines need . Report called to [facility] Savanna Carvalho RN 05/25/221818 * Zarina [...] a gown . Pt was sent from [facility] for elevated CK level. Security here to check pt belongings. Monitor on to watch patient for a safety sit Savanna Carvalho RN 05/25/22 1602 * Mary Hamlin MD - 05/25/2022 3:52 PM EDT [facility] EMERGENCY DEPT EMERGENCY DEPARTMENT ENCOUNTER Pt Name: [...] disease) Hypertension Pancreatitis SVT (supraventricular tachycardia) (CMS/HCC) ([facility]) Tourette syndrome SURGICAL HISTORY Past Surgical History: [...] is medically cleared for return transfer to [facility]. CK is 105 and creatinine is 0.61. [BJ] ED Course User Index [BJ] Mary Hamlin MD Diagnoses as of 05/25/221720 Anxiety CONSULTS: None PROCEDURES: Unless otherwise noted below, none Procedures FINAL IMPRESSION 1. Anxiety DISPOSITION/PLAN DISPOSITION Transfer To Another Facility 05/25/2022 05:19:32 PM PATIENT REFERRED TO: Neetu Jiménez [facility], [address] [facility] [address] DISCHARGE MEDICATIONS: New Prescriptions No medications on file @[facility](3076,[id number]:LAST:1)@ (Please note: Portions of this note were [...] Kaur RN 05/25/22 1553 documented in this [facility]04-16-2023 Emergency department Note* Jose Alberto Mena - 05/25/2022 10:15 PM EDT EMS at bedside for transport. EMS advised to check in with assigned RN before leaving. Ems loaded pt to [facility] and transported with 1 belonging bag Jose Alberto Mena 05/25/222216 [address]Yapqwh57-28-4114 Emergency department Note* Ana Osorio RN - 05/25/2022 9:35 PM EDT Patient is resting in bed with eyes closed. Respirations even and unlabored. No distress noted. Ana Osorio RN 05/25/222134 [address]Rdppsj66-26-8014 Emergency department Note* Ana Osorio RN - 05/25/2022 8:25 PM EDT This RN introduced herself to the patient. Patient is resting in bed. Respirations even and unlabored. No distress noted. Patient given cranberry juice. Vitals taken. Patient waiting to be transported to [facility]. Ana Osorio RN 05/25/222024 [address]Nsgsjk25-80-6598 Emergency department Note* Zarina Eduardo - 05/25/2022 6:29 PM EDT Meal tray at bedside. Zarina Eduardo 05/25/22 182 [address]Vpemrr03-27-2786 Emergency department Note* Savanna Carvalho RN - 05/25/2022 6:18 PM EDT Pt resting in bed . Pt declines need . Report called to COLT Carvalho RN 05/25/22 181 [address]Blnezc02-05-8392 Emergency department Note* Zarina Eduardo - 05/25/2022 6:01 PM EDT Meal tray ordered for pt. Zarina Roeo 05/25/22 1801 [address]Gtpbby60-86-7708 Emergency department Note* Zarina Jayce - 05/25/2022 5:42 PM EDT This note placed into wrong pt chart. Note erased and replaced with this notice of mistake. Zarina Jayce 05/25/22 1743 Zarina Jayce 05/25/22 1751 [address]Whvcul12-69-5608 Emergency department Note* Zarina Barbosaivo - 05/25/2022 5:35 PM EDT This medic placed a note in wrong pts chart. Original note replaced with this note. Zarina Jayce 05/25/22 1750 Zarina Jayce 05/25/22 1751 [address]Eoizsc54-30-3268 Emergency department Note* Zarina Jayce - 05/25/2022 4:33 PM EDT JOSE GUADALUPE Rosenberg at bedside to medicate pt. Zarina Jayce 05/25/22 1633 [address]Ibjbtd63-45-9770 Emergency department Note* Zarina Jayce - 05/25/2022 4:[address] Hamlin at bedside. Zarina Jayce 05/25/22 1627 [address]Edxgoo13-32-8034 Emergency department Note* Zarina Jayce - 05/25/2022 4:14 PM EDT JOSE GUADALUPE Corrales at bedside to obtain vitals. Zarina Eduardo 05/25/22 1615 [facility] WestFrsgvv78-44-2590 Emergency department Note* Zarina Eduardo - 05/25/2022 4:08 PM EDT Pt changed into 2 gowns by JOSE GUADALUPE Corrales. Pt wanded by protective services, belongings secured in 1 bag.Pt resting comfortably in bed at this time. Wanding and belongings check complete. Zarina Eduardo 05/25/22 1609 [facility] WestOoipez01-89-0977 Emergency department Note* Savanna Carvalho RN - 05/25/2022 4:07 PM EDT Pt changed to into a gown . Pt was sent from [facility] for elevated CK level. Security here to check pt belongings. Monitor on to watch patient for a safety sit Savanna Carvalho RN 05/25/22 1609 [facility] WestAcigbk60-77-2824 Emergency department Note* Nikolai Kaur RN - 05/25/2022 3:52 PM EDT Bed: 35 Expected date: Expected time: Means of arrival: Comments: Nikolai Kaur RN 05/25/22 1553 [facility] WestZeeinb20-81-8486 Physician Emergency department Note* Mary Hamlin MD - 05/25/2022 3:52 PM EDT [facility] EMERGENCY DEPT EMERGENCY DEPARTMENT ENCOUNTER Pt Name: [...] disease) Hypertension Pancreatitis SVT (supraventricular tachycardia) (CMS/HCC) ([facility]) Tourette syndrome SURGICAL HISTORY Past Surgical History: [...] is medically cleared for return transfer to [facility]. CK is 105 and creatinine is 0.61. [BJ] ED Course User Index [BJ] Mary Hamlin MD Diagnoses as of 05/25/221720 Anxiety CONSULTS: None PROCEDURES: Unless otherwise noted below, none Procedures FINAL IMPRESSION 1. Anxiety DISPOSITION/PLAN DISPOSITION Transfer To Another Facility 05/25/2022 05:19:32 PM PATIENT REFERRED TO: Neetu Jiménez [address] [place] [address], [address] [facility] [phone] DISCHARGE MEDICATIONS: New Prescriptions No medications on file @[facility]([id number]:LAST:1)@ (Please note: Portions of this note were completed with a voice recognition program. Efforts were made to edit the dictations but occasionally words and phrases are mis-transcribed.) Form [id number] Mary Hamlin MD (electronically signed) Emergency Medicine Provider Mary Hamlin MD 05/25/221720 [facility] Phone: 1(948) 949-758504-15-2023 Emergency department Note* Ana Rich RN - 05/24/2022 9:30 AM EDT [facility] arranged to [facility]. Physician's ETA 2 hours Ana Rich RN 05/24/22929 [facility] LabsCjbihk82-39-8125 Emergency department Note* Ana Rich RN - 05/24/2022 9:30 AM EDT [facility] arranged to [facility]. Physician's ETA 2 hours Ana Rich RN 05/24/22929 * Ana Rich RN - 05/24/2022 8:59 AM EDT Report called to Emily at [facility] Ana Rich RN 05/24/22 0859 * Kenyetta [...] at this time. Juana Trotter RN 05/23/22 7886 * Mary Hamlin MD - 05/23/2022 8:53 PM EDT [facility] ED EMERGENCY DEPARTMENT ENCOUNTER Pt Name: [...] reflux disease) Hypertension Pancreatitis SVT (supraventricular tachycardia) ([facility]/HCC) ([facility]) Tourette syndrome SURGICAL HISTORY Past Surgical History: [...] New Prescriptions No medications on file @[facility]([id number]:LAST:1)@ (Please note: Portions of this note were [...] suicidal ideation he will be admitted to [facility]. He is worried he is going [...] Mara Ramos RN 05/23/222131 documented in this [facility]04-15-2023 Emergency department Note* Ana Rich RN - 05/24/2022 8:59 AM EDT Report called to Emily at [facility] Ana Rich RN 05/24/22 0859 [address]Aumoqo29-12-8142 Emergency department Note* Kenyetta Perkins RN - 05/24/2022 8:00 AM EDT Pt. Resting comfortably in room, asleep; bed lowest position; RR 16 Kenyetta Perkins RN 05/24/22 0802 [address]xtnr46-92-6819 Emergency department Note* Mara Ramos RN - 05/24/2022 2:05 AM EDT Pt ok'd to come off 1:1 sitter by physician. Mara Ramos RN 05/24/22 0206 [facility]Sinfkk73-42-8756 Emergency department Note* Mara Ramos RN - 05/24/2022 2:01 AM EDT Pt A&Ox4. Pt denies SI and HI. Pt states that he has been SI in the past but is not feeling SI.Pt states that he may have been confused when he said he was earlier. Mara Ramos RN 05/24/22 0202 [facility] WestTszzgv22-69-4190 NoteNOTE: This result is for medical treatment only. Analysis performed using non-forensic procedures. [facility] WestXlkfia75-09-0013 Emergency department Note* Juana Trotter RN - 05/23/2022 11:30 PM EDT Pt placed on monitoring devices at this time. Juana Trotter RN 05/23/22 9413 [facility] WestIvkqiz81-74-8892 Miscellaneous Notes* Care Coordination - Roma Madsen [...] to participate in ASAM. documented in this [facility]04-14-2023 Note* Care Coordination - Roma Madsen RN [...] or prc;not willing to participate in ASAM. [place] [address]Sipqby46-66-3507 Note* Care Coordination - Roma Madsen RN [...] or prc;not willing to participate in ASAM. [place] [address]Ivsskg40-28-4747 Emergency department Note* Joe Godoy - 05/23/2022 8:53 PM EDT Bed: 02 Expected date: 05/23/22 Expected time: Means of arrival: Comments: offload Joe Walt 05/23/222110 [facility] WestMjtgmb44-57-8357 Emergency department Note* Mara Ramos RN - 05/23/2022 8:53 PM EDT Bed: 13 Expected date: Expected time: Means of arrival: Comments: Room 2 Mara Ramos RN 05/23/222131 [facility] WestKovees75-92-7927 Emergency department Triage note* MARIXA Michael - 05/23/2022 8:53 PM EDT Complaint of intentional drug overdose tonight on multiple drugs and alcohol in a suicide attempt. Patient was given 2mg of narcan via ems. [facility] WestRkomhq59-91-4165 Physician Emergency department Note* Mary Hamlin MD - 05/23/2022 8:53 PM EDT [facility] ED EMERGENCY DEPARTMENT ENCOUNTER Pt Name: [...] disease) Hypertension Pancreatitis SVT (supraventricular tachycardia) (CMS/HCC) ([facility]) Tourette syndrome SURGICAL HISTORY Past Surgical History: [...] New Prescriptions No medications on file @[facility]([id number]:LAST:1)@ (Please note: Portions of this note were completed with a voice recognition program. Efforts were made to edit the dictations but occasionally words and phrases are mis-transcribed.) Form [id number] Mary Hamlin MD (electronically signed) Emergency Medicine Provider Mary Hamlin MD 05/24/22 0003 [place] Phone: [phone] Physician Emergency department Note* Duong Milian MD [...] for psychiatric admission. Duong Milian MD 05/24/22 4899 [place] Phone: [phone] 762-325703-24-2023 Emergency department Note* JOSÉ ANTONIO Mercedes CNP [...] 7. Limb Ataxia: Absent 8. Sensory Loss: Xngk-sx-Upxldcml Sensory Loss 9. Best Language: No Aphasia [...] Discharge 05/02/2022 07:51:02 PM PATIENT REFERRED TO: eNetu Jiménez [address] [place] [address]., [address] [facility] [phone] Schedule an appointment as soon as possible [...] but it didn't work. documented in this encounterSSelect Medical [facility] Rehabilitation HospitalSicapy26-31-2829 Emergency department Triage note* Roma Lutz RN - 05/02/2022 6:16 PM EDT Pt came with c/o numbness and tingling legs, arms and feet when standing. Chest pain and dizziness also present. All stated about a week ago worsened today. Thought is was heartburn and took omeprazole but it didn't work. [facility] WestYqzeyd67-91-5801 Physician Emergency department Note* JOSÉ ANTONIO Mercedes [...] 7. Limb Ataxia: Absent 8. Sensory Loss: Fmcn-cy-Nlaeqtdm Sensory Loss 9. Best Language: No Aphasia [...] 07:51:02 PM PATIENT REFERRED TO: Neetu Jiménez [facility] [facility] [phone] Schedule an appointment as soon [...] CNP 05/02/221953 JOSÉ ANTONIO Mercedes CNP 05/02/222006 [facility] WestBedtoz04-02-6595 History of Present illness Narrative* Luisa Kilgore [...] 1 patch, 1 patch, TransDERmal, Daily, Carlitos rOta MD, 1 patch at 03/17/22 1011 nicotine [...] Vivitrol IM injection on day of discharge. Medication Technician recommendations: n/a. I spent total time 35 [...] Vivitrol IM injection on day of discharge. Medication Technician recommendations: n/a. I spent total time 35 [...] - 03/16/2022 4:28 AM EST Reports using [facility] on [address], . Closed at the moment will [...] that he tried it once at a [employer] on night and did alot and that's [...] Ativan given in the ED. documented in [facility]02-08-2023 Note* Care Coordination - VANITA Toribio - 03/19/2022 10:22 AM EST SHAREPOINT ENGINEER saw patient to discuss aftercare plans and treatment post discharge. Patient was reminded abouta follow up appointment with [facility] on 03/26/22 at 11:20am. Patient denied current SI/HI/AVH. Patient reported that their step- mother would be picking them up from the hospital and taking them back home.Patient asked for a letter of admission. A letter was provided and a copy placed in patient's chart. Patient denied needing anything further from [facility] at the time. SHAREPOINT ENGINEER informed patient'snurse about conversation. [facility] WestKtyxys71-40-3403 Note* Care Coordination - VANITA Toribio - 03/19/2022 10:22 AM EST SHAREPOINT ENGINEER saw patient to discuss aftercare plans and treatment post discharge. Patient was reminded abouta follow up appointment with [facility] on 03/26/22 at 11:20am. Patient denied current SI/HI/AVH. Patient reported that their step- mother would be picking them up from the hospital and taking them back home.Patient asked for a letter of admission. A letter was provided and a copy placed in patient's chart. Patient denied needing anything further from [facility] at the time. SHAREPOINT ENGINEER informed patient'snurse about conversation. [facility] WestQjlatm97-11-4272 Miscellaneous Notes* Care Coordination - VANITA Toribio - 03/19/2022 10:22 AM EST SHAREPOINT ENGINEER saw patient to discuss aftercare plans and treatment post discharge. Patient was reminded abouta follow up appointment with [facility] on 03/26/22 at 11:20am. Patient denied current SI/HI/AVH. Patient reported that their step- mother would be picking them up from the hospital and taking them back home.Patient asked for a letter of admission. A letter was provided and a copy placed in patient's chart. Patient denied needing anything further from [facility] at the time. SHAREPOINT ENGINEER informed patient'snurse about conversation. * Group Note [...] Roro Valdivia Date of : 1985 MR: [id number] Interventions utilized were Building rapport and engagement [...] VANITA Toribio - 03/18/2022 1:58 PM EST SHAREPOINT ENGINEER called [facility] for intake appointment information. Staff explained that they were having issues with their fax machine and asked that information be re-sent. SHAREPOINT ENGINEER will re-fax information. Staff will call SHAREPOINT ENGINEER back with the follow up appointment information. * Care Coordination - VANITA Toribio - 03/17/2022 1:10 PM EST Patient is have licensed master social worker in the hallway. Patient asked for resources related to sober living. Patient asked for assistance in identifying sober living facilities. photographic process worker explained the difficulties with sober living as they are not often licensed and accredited. photographic process worker offered to provide patient with a list of resources and patient was agreeable to make his own phone calls. Patient asked for assistance as well for emergency rent and utilities. photographic process worker provided patient with number to [facility] for emergency assistance as well as [facility]. Patient was also provided with information for [facility] the [facility]. Patient encouraged to seek out licensed master social worker should he identify any additional needs or services. at1:15 PM * Care Coordination - VANITA Toribio - 03/17/2022 11:08 AM EST SHAREPOINT ENGINEER talked with patient about aftercare. Due to patient's need for community resources and case management, SHAREPOINT ENGINEER offered to assist with referral to [facility]. Patient agreeable and signed ARI. SHAREPOINT ENGINEER faxed referral for patient. Information will be [...] Patient has history of residential treatment at [facility]. Patient patient is unable to find [...] without any children and living alone in [place]. Patient reports that he has no contact with his mother and he has never met his father. Patient reports he does not have any siblings. Patient reports he was born and raised in [place] by primarily his mother's adoptive parents. Patient [...] his GED while he was in the [employer]. Patient reports he is not currently working. Patient denies SI/SSD. Cultural/Spirituality/Leisure: Patient denies any cultural needs or concerns at the current time. Patient denies any mosque preference at the current time. Patient reports [...] Patient is not currently engaged with [facility]. Patient has a past history of [facility] Clinical Status (Recent): Hopelessness, Substance [...] management. Patient is interested in working with licensed master social worker establish an aftercare plan. photographic process worker will continue to work with patient. Patient encouraged to gauge activities that are offered and lies on the unit. Patient not reporting additional at current time. Patient encouraged to seek out licensed master social worker and staff should he identify any additional [...] manageable levels Outcome: Progressing documented in this [facility]02-08-2023 Hospital course Narrative* Vinay Pacheco MD - [...] [facility]. He was started on Zoloft [...] 427 ms QTC Interval 428 ms P [place] 41 degrees QRS [place] 5 degrees T Wave [place] 2 degrees [place] Interval 176 ms Imaging ECG 12 lead [...] pursue chemical dependency treatment at: Follow with [facility]. The patient was also instructed to: Attend AA/NA meetings or a similar 12-step program. Abstain from any mind or mood altering substances that are not prescribed. Follow up with their primary care doctor and/or psychiatrist as soon as possible. Recommended outpatient follow-up/testing: As above. Time spent on discharge summary: >30 minutes documented in this [facility]02-07-2023 Group counseling note* Group Note - Divine Lombardo - 03/18/2022 4:59 PM EST Inpatient Behavioral Health Services Department: [facility] ACTIV[facility] THERAPY Group Name: Recreation Therapy [...] Roro Valdivia Date of : 1985 MR: [id number] Interventions utilized were Building rapport and engagement [...] abuse (HCC) Elevated liver enzymes Panic disorder [facility] WestXikmml01-45-9265 Note* Care Coordination - VANITA Toribio - 03/18/2022 1:58 PM EST SHAREPOINT ENGINEER called [facility] for intake appointment information. Staff explained that they were having issues with their fax machine and asked that information be re-sent. SHAREPOINT ENGINEER will re-fax information. Staff will call SHAREPOINT ENGINEER back with the follow up appointment information. [facility] WestSogmqf20-48-7430 Note* Care Coordination - VANITA Toribio - 03/18/2022 1:58 PM EST [facility]AREPOINT [facility]INE[facility]. Staff explained that they were having issues with their fax machine and asked that information be re-sent. SHAREPOINT ENGINEER will re-fax information. Staff will call SHAREPOINT ENGINEER back with the follow up appointment information. [facility] WestHseqmp52-92-4873 Nurse Note* Fay Lara RN - 03/18/2022 [...] 1600 He attended the 4 pm group. [facility] WestHdvotq66-30-5557 Nurse Note* Restricted notes were excluded * [...] . t 5:48 PM documented in this [facility]02-07-2023 Nurse Note* Feng Lizama RN - 03/18/2022 2:07 AM EST Pt pleasant and cooperative withdrawn to room. Pt denies SI/HI/AH/VH. Pt c/o abdominal pain and burning. PRN Tylenol and Maalox given. Meds were effective. Pt compliant with meds. [facility] WestGjqhex33-39-5408 Note* Care Coordination - VANITA Toribio - 03/17/2022 1:10 PM EST Patient is have licensed master social worker in the hallway. Patient asked for resources related to sober living. Patient asked for assistance in identifying sober living facilities. photographic process worker explained the difficulties with sober living as they are not often licensed and accredited. photographic process worker offered to provide patient with a list of resources and patient was agreeable to make his own phone calls. Patient asked for assistance as well for emergency rent and utilities. photographic process worker provided patient with number to [facility] for emergency assistance as well as [facility]. Patient was also provided with information for [facility] the [facility]. Patient encouraged to seek out licensed master social worker should he identify any additional needs or services. at1:15 PM [facility] WestQokgtv72-49-5399 Note* Care Coordination - VANITA Toribio - 03/17/2022 1:10 PM EST Patient is have licensed master social worker in the hallway. Patient asked for resources related to sober living. Patient asked for assistance in identifying sober living facilities. photographic process worker explained the difficulties with sober living as they are not often licensed and accredited. photographic process worker offered to provide patient with a list of resources and patient was agreeable to make his own phone calls. Patient asked for assistance as well for emergency rent and utilities. photographic process worker provided patient with number to [facility] for emergency assistance as well as [facility]. Patient was also provided with information for [facility] the [facility]. Patient encouraged to seek out licensed master social worker should he identify any additional needs or services. at1:15 PM [facility] WestFpfqjz92-10-5557 Note* Care Coordination - VANITA Toribio - 03/17/2022 11:08 AM EST SHAREPOINT ENGINEER talked with patient about aftercare. Due to patient's need for community resources and case management, SHAREPOINT ENGINEER offered to assist with referral to [facility]. Patient agreeable and signed ARI. SHAREPOINT ENGINEER faxed referral for patient. Information will be added to discharge paperwork as appointments are scheduled. [facility] WestHkwkae60-09-0578 Note* Care Coordination - VANITA Toribio - 03/17/2022 11:08 AM EST SHAREPOINT ENGINEER talked with patient about aftercare. Due to patient's need for community resources and case management, SHAREPOINT ENGINEER offered to assist with referral to [facility]. Patient agreeable and signed ARI. SHAREPOINT ENGINEER faxed referral for patient. Information will be added to discharge paperwork as appointments are scheduled. [facility] WestGypieh37-01-5435 Plan of care note* Care Plan - Christy Chauhan RN - 03/16/2022 9:19 PM EST Problem: Self Harm/Suicidality Goal: Will have no self-injury during hospital stay Outcome: Progressing Problem: Psychosis Goal: Will report no hallucinations or delusions Outcome: Progressing Problem: Anxiety Goal: Will report anxiety at manageable levels Outcome: Progressing [facility] WestDnbhei34-31-9733 Nurse Note* Yolanda Moreau RN - 03/16/2022 [...] each pt interaction. . t 5:48 PM [facility] WestIpxnzt51-02-2914 Hospital Discharge instructions* Discharge Instr - Other [...] National Suicide Prevention Hotline if needed at: 8-766-914-JZYY (9846) Please call the following number should you have questions regarding your discharge or aftercare appointments: 4 [facility] * Attachments The following attachments cannot be sent through Care Everywhere. * Naltrexone, ADULT (Mauritian) * Sertraline, ADULT (Mauritian) documented in this [facility]02-05-2023 Note* Care Coordination - VANITA Toribio - [...] Patient has history of residential treatment at [facility]. Patient patient is unable to find [...] without any children and living alone in [place]. Patient reports that he has no contact with his mother and he has never met his father. Patient reports he does not have any siblings. Patient reports he was born and raised in [place] by primarily his mother's adoptive parents. Patient [...] at the current time. Patient denies any mosque preference at the current time. Patient reports [...] management. Patient is interested in working with licensed master social worker establish an aftercare plan. photographic process worker will continue to work with patient. Patient encouraged to gauge activities that are offered and lies on the unit. Patient not reporting additional at current time. Patient encouraged to seek out licensed master social worker and staff should he identify any additional [...] to contact the dictating provider for clarification. [facility] WestIgmzwb88-18-1826 Note* Care Coordination - VANITA Toribio - [...] have a past history of IOP was [facility] which was court ordered. Patient [...] Patient has history of residential treatment at [facility]. Patient patient is unable to find [...] without any children and living alone in [place]. Patient reports that he has no contact with his mother and he has never met his father. Patient reports he does not have any siblings. Patient reports he was born and raised in [place] by primarily his mother's adoptive parents. Patient [...] his GED while he was in the [facility] house. Patient reports he is not currently working. Patient denies SI/SSD. Cultural/Spirituality/Leisure: Patient denies any cultural needs or concerns at the current time. Patient denies any mosque preference at the current time. Patient reports [...] currently. Patient is not currently engaged with [facility]. Patient has a past history [...] management. Patient is interested in working with licensed master social worker establish an aftercare plan. photographic process worker will continue to work with patient. Patient encouraged to gauge activities that are offered and lies on the unit. Patient not reporting additional at current time. Patient encouraged to seek out licensed master social worker and staff should he identify any additional [...] to contact the dictating provider for clarification. [facility] Ibmwqd92-42-0294 History and physical note* Carlitos Orta MD [...] later did get his GED while in intermediate). He has never gone more than a day or two as an adult without drinking. He admits to experimenting with opioid pain pills and fentanyl although he overdosed and decided to stop opioid use about a year ago. He admits to ongoing and sporadic cocaine and meth use in addition to daily alcohol use. He was forced to go to [facility] and inpatient treatment at [facility] [...] Psychiatric History Current Psychiatrist: has gone to [facility] in the recent past; unclear if [...] Electronically Signed On 03-15-2022 22:26:15 EST by [employer] Recent Results (from the past 48 hour(s)) [...] 427 ms QTC Interval 428 ms P [place] 41 degrees QRS [place] 5 degrees T Wave [place] 2 degrees [place] Interval 176 ms Medications Home Medications Current [...] mg, 4 mg, Oral, q6h PRN, Carlitos Otra MD, 4mg at 03/16/22 0812 pantoprazole (ProtoNix) [...] good idea. He is welcome to see nashul Handy if interested. I did talk to [...] we can get him an appointment at [facility] where he has established before If [...] rehab, Vivitrol IMinjection on day of discharge. Medication Technician recommendations: n/a. I spent total time 75 minutes reviewing the patient's medical record, reviewing test results, educating and then counseling the patient on any substance use disorder or chemical dependency related issues. This included a face to face evaluation and physical examination, coordinating care on a substance use disorder treatment plan as well as documenting clinical information on the day of visit. [facility] WestDdrvzb39-82-7954 History and physical note* Carlitos Orta MD [...] later did get his GED while in intermediate). He has never gone more than a day or two as an adult without drinking. He admits to experimenting with opioid pain pills and fentanyl although he overdosed and decided to stop opioid use about a year ago. He admits to ongoing and sporadic cocaine and meth use in addition to daily alcohol use. He was forced to go to [facility] and inpatient treatment at [facility] [...] Psychiatric History Current Psychiatrist: has gone to [facility] in the recent past; unclear if [...] Signed On 03-15-2022 22:26:15 EST by Josselineluis [facility] Recent Results (from the past 48 hour(s)) [...] 427 ms QTC Interval 428 ms P [place] 41 degrees QRS [place] 5 degrees T Wave [place] 2 degrees WV Interval 176 ms Medications Home Medications Current [...] we can get him an appointment at [facility] where he has established before If [...] rehab, Vivitrol IMinjection on day of discharge. Medication Technician recommendations: n/a. I spent total time 75 [...] the day of visit. documented in this [facility]02-05-2023 Plan of care note* Care Plan - [...] the shift include decrease nausea and anxiety [id number] Plan of care note* Care Plan - Christy Chauhan RN - 03/16/2022 12:40 AM EST Problem: Self Harm/Suicidality Goal: Will have no self-injury during hospital stay Outcome: Progressing Problem: Psychosis Goal: Will report no hallucinations or delusions Outcome: Progressing Problem: Anxiety Goal: Will report anxiety at manageable levels Outcome: Progressing [id number] Emergency department Note* Jovita Thompson RN - 03/15/2022 11:25 PM EST Pt transported to [address] [place] [address] with RN and protective services at bedside. No distress noted. Jovita Thompson RN 03/15/22 7586 Ana M [id number] Emergency department Note* Jovita Thompson RN - 03/15/2022 11:25 PM EST Pt transported to [address] [place] [address] with RN and protective services at bedside. [...] 03/15/2022 8:52 PM EST Pt placed on quality assurance monitor final. Seizure precautions in place; side rails up [...] reflux disease) Hypertension Pancreatitis SVT (supraventricular tachycardia) ([facility]) ([facility]) Tourette syndrome SURGICAL HISTORY Past Surgical History: [...] dictating provider for clarification.) Josseline Weber MD [facility] [employer] Josseline Weber MD 03/15/22 1698 documented in this [facility]02-04-2023 Emergency department Note* Jovita Thompson RN - 03/15/2022 11:24 PM EST Pt changed into 2 gowns and socks. Pt wanded by Protective Services and belonging check done. Pt has 2 bags. Jovita Thompson RN 03/15/22 2325 [id number] Emergency department Note* Jovita Thompson RN - 03/15/2022 10:58 PM EST Report called to Sis SHI on 4E. Jovita Thompson RN 03/15/22 2256 [address]Kwyole41-33-2369 Emergency department Note* Jovita Thompson RN - 03/15/2022 10:31 PM EST Beatris LOPEZ at bedside. Jovita Thompson RN 03/15/22 223 [address]Cvdknu82-34-1903 Emergency department Note* Jovita Thompson RN - 03/15/2022 10:15 PM EST EKG at bedside. Jovita Thompson RN 03/15/22 2215 [address]Kgnhnt03-31-1831 Emergency department Note* Jovita Thompson RN - 03/15/2022 9:32 PM EST Pt ambulated with steady gait to restroom to give urine sample. Jovita Thompson RN 03/15/222131 [address]Amhfbj36-62-2305 NoteNOTE: This result is for medical treatment only. Analysis performed using non-forensic procedures. [facility]tjybj90-76-0251 Emergency department Note* Jovita Thompson RN - 03/15/2022 8:[address] Weber at bedside. Jovita Tohmpson RN 03/15/222058 [facility]Eskmsa86-42-3709 Emergency department Note* Jovita Thompson RN - 03/15/2022 8:52 PM EST Pt placed on quality assurance monitor final. Seizure precautions in place; side rails up and padded. Jovita Thompson RN 03/15/222051 [address]Fdsapv71-20-3175 Emergency department Note* Jovita Thompson RN - 03/15/2022 8:16 PM EST Beatris LOPEZ at bedside. Jovita Thompson RN 03/15/222015 [address]Mtmtbm62-26-6898 Physician Emergency department Note* ESTRELLA Tavarez - [...] reflux disease) Hypertension Pancreatitis SVT (supraventricular tachycardia) ([facility]) ([facility]) Tourette syndrome SURGICAL HISTORY Past Surgical History: [...] and appropriate information was provided to [employer] to assist them in choosing a course [...] signed) Emergency Medicine Provider ESTRELLA Tavarez 03/15/222239 [facility] WestYoxoaw98-26-7403 Physician Emergency department Note* Josseline Weber MD [...] dictating provider for clarification.) Josseline Weber MD [facility] Josseline Weber MD 03/15/22 6103 [facility] [employer] Work Phone: Consult note [facility] Medical Records Department [address] [place] [address] Counseling Note - Pharmacy 12/01/242 MR#: [id number] Acct: [id number] Name: RORO VALDIVIA Rep #:[id number] : 1985 39 From: Israel gary PCP: Care Physician,No Primary Status :ADM IN Y Location: [place] [id number] Pharmacy [place] Med Reconciliation Pharmacy Service has performed discharge [...] Signature (if applicable): Date CC: ~ Signed [facility] Israel Rodriguez [facility] Note Date/Time December 01, 2024 1 :15pm [facility] Medical Records Department [address] [place] [address] Counseling Note - Pharmacy 12/01/24 1022 MR#: [id number] Acct: [id number] Name: RORO VALDIVIA Rep #:[id number] : 1985 39 From: Israel gary PCP: Care Physician,No Primary Status :ADM IN Y Location: [place] [address] Pharmacy [place] Med Reconciliation Pharmacy Service has performed discharge [...] Signature (if applicable): Date CC: ~ Signed [facility] Work Phone: Discharge summary [facility] Medical Records Department [address] [place] [address] Discharge Summary 12/01/24 0959 MR#: [id number] Acct: [id number] Name: MIGDALIARORO ERAZO ADRIAN Rep #:[id number] : 1985 39 From: Joe Mcmillan DO PCP: Care Physician,No Primary Status :ADM IN Location: [place] [address] Providers Date of Admission: 11/30/24 Primary Care [...] has cirrhosis by his GI physicians in [place]. Advised ongoing discontinuation of alcohol. DVT prophylaxis [...] Self Care Charges/Coding Visit Charges Inpatient E&M: 50572 Disch Hosp 12/01/24 1003 Cosigner Signature (if applicable): CC: Dr. Joe Mcmillan DO; No Primary Care Physician~ Signed [facility] Joe Mcmillan [facility] Note Date/Time December 01, 2024 1 1:03am [facility] Medical Records Department [address] [place] [address] Discharge Summary 12/01/24 0959 MR#: [id number] Acct: [id number] Name: RORO VALDIVIA Rep #:[id number] : 1985 39 From: Joe Mcmillan DO PCP: Care Physician,No Primary Status :ADM IN Location: [place] [address] Providers Date of Admission: 11/30/24 Primary Care [...] has cirrhosis by his GI physicians in [place]. Advised ongoing discontinuation of alcohol. DVT prophylaxis [...] Self Care Charges/Coding Visit Charges Inpatient E&M: 92337 Disch Hosp 12/01/24 1003 <Electronically signed by Joe Mcmillan DO> Cosigner Signature (if applicable): CC: Dr. Joe Mcmillan DO; No Primary Care Physician~ Signed [facility] Work Phone: Evaluation note* Diagnosis Chest pain, unspecified type- Primary Anxiety attack Panic disorder without agoraphobia [facility]* Diagnosis Suicide attempt (HCC)- Primary Suicide and self-inflicted injury by unspecified means [facility] Diagnosis Anxiety- Primary Anxiety state, unspecified [facility]* Diagnosis Acute gout of left foot, unspecified cause- Primary [facility]* Diagnosis Alcohol abuse- Primary Nondependent alcohol abuse, unspecified drinking behavior Alcohol abuse Nondependent alcohol abuse, unspecified drinking behavior [facility]* Diagnosis Sprain of left knee, initial encounter- Primary Closed head injury, initial encounter [facility]* Diagnosis Alcohol withdrawal syndrome without complication (HCC)- Primary Alcohol withdrawal syndrome without complication (HCC) Polysubstance abuse (CMS/HCC) (HCC) Other, mixed, or unspecified nondependent drug abuse, unspecified Opioid use disorder Polysubstance use disorder Benzodiazepine withdrawal with complication (HCC) Opioid withdrawal (HCC) Drug withdrawal Amphetamine withdrawal (HCC) Drug withdrawal [facility]* Diagnosis Severe opioid use disorder (HCC)- Primary Alcohol-induced insomnia (CMS/HCC) (HCC) Mild intermittent asthma without complication Anxiety Anxiety state, unspecified Tourette syndrome Tourette's disorder Severe alcohol use disorder (HCC) Encounter for smoking cessation counseling Nausea Nausea alone [facility]* Diagnosis Severe opioid use disorder (HCC)- Primary Alcohol-induced insomnia (CMS/HCC) (HCC) Mild intermittent asthma without complication Anxiety Anxiety state, unspecified Tourette syndrome Tourette's disorder Severe alcohol use disorder (HCC) Encounter for smoking cessation counseling Nausea Nausea alone [facility]* Diagnosis Gastroesophageal reflux disease without esophagitis- Primary Esophageal reflux Anxiety Anxiety state, unspecified Alcohol-induced insomnia (CMS/HCC) (HCC) Severe opioid use disorder (HCC) [facility]* Diagnosis 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 [facility]* Diagnosis 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 Polysubstance use disorder Panic disorder Panic disorder without agoraphobia Alcohol abuse Nondependent alcohol abuse, unspecified drinking behavior Tourette syndrome Tourette's disorder SVT (supraventricular tachycardia) Other specified cardiac dysrhythmias History of pancreatitis Personal history of other diseases of digestive disease [facility]* Diagnosis Positive QuantiFERON-TB Gold [...] latent tuberculosis- Primary [facility]* Diagnosis Opioid use disorder, severe, on maintenance therapy (HCC)- Primary [facility]* Diagnosis Severe opioid use disorder (HCC)- Primary Palpitations documented [facility]* Diagnosis Severe opioid use disorder (HCC)- Primary Palpitations [facility] Diagnosis Severe opioid use disorder (HCC) [facility]* Diagnosis Alcohol use disorder- Primary Alcohol use disorder Hypoxia Hypoxemia Transaminitis Nonspecific elevation of levels of transaminase or lactic acid dehydrogenase (LDH) Opioid withdrawal (HCC) Drug withdrawal Anxiety Anxiety state, unspecified [facility]* Diagnosis Opioid withdrawal (HCC) Drug withdrawal [facility] Diagnosis Opioid withdrawal (HCC) Drug withdrawal [facility] Diagnosis Alcohol withdrawal syndrome without complication [...] psychotic features (HCC) [facility]* Diagnosis Anxiety Anxiety state, unspecified Palpitations Opioid withdrawal (HCC) Drug withdrawal [facility]* Diagnosis Severe opioid use disorder (HCC) Major depressive disorder, recurrent episode, moderate (HCC) Major depressive disorder, recurrent episode, moderate RODRIGUEZ (generalized anxiety disorder) Generalized anxiety disorder Motor tic disorder Tic disorder, unspecified [facility]* Diagnosis Opioid withdrawal (HCC) Drug withdrawal Severe alcohol use disorder (HCC) Major depressive disorder, recurrent episode, moderate (HCC) Major depressive disorder, recurrent episode, moderate RODRIGUEZ (generalized anxiety disorder) Generalized anxiety disorder Motor tic disorder Tic disorder, unspecified [facility] Diagnosis Severe opioid use disorder (HCC) Motor tic disorder Tic disorder, unspecified Major depressive disorder, recurrent episode, moderate (HCC) Major depressive disorder, recurrent episode, moderate RODRIGUEZ (generalized anxiety disorder) Generalized anxiety disorder Severe alcohol use disorder (HCC) [facility]* Diagnosis Severe opioid use disorder (HCC) Motor tic disorder Tic disorder, unspecified [facility]* Diagnosis Alcohol-induced acute pancreatitis, unspecified complication status- Primary [facility]* Diagnosis Severe opioid use disorder (HCC) Severe alcohol use disorder (HCC) Major depressive disorder, recurrent episode, moderate (HCC) Major depressive disorder, recurrent episode, moderate RODRIGUEZ (generalized anxiety disorder) Generalized anxiety disorder Tourette syndrome Tourette's disorder [facility]* Diagnosis Alcohol-induced acute pancreatitis, unspecified complication status- Primary documented [facility]* Diagnosis Acute recurrent pancreatitis- Primary Acute pancreatitis Acute recurrent pancreatitis Acute pancreatitis [facility]* Diagnosis Severe alcohol use disorder (HCC) Major depressive disorder, recurrent episode, moderate (HCC) Major depressive disorder, recurrent episode, moderate RODRIGUEZ (generalized anxiety disorder) Generalized anxiety disorder Tourette syndrome Tourette's disorder [facility]* Diagnosis Acute pancreatitis without infection or necrosis- Primary Acute pancreatitis without infection or necrosis Cardiomegaly Arm vein blood clot, right Moderate malnutrition (CMS/HCC) (HCC) documented [facility]* Diagnosis Alcoholic intoxication without complication (CMS/HCC) (HCC)- Primary Alcoholic intoxication without complication (CMS/HCC) (HCC) Hematemesis of unknown etiology Other depression Hematemesis of unknown etiology [facility]* Diagnosis Abdominal pain, epigastric- Primary Acute pancreatitis, unspecified complication status, unspecified pancreatitis type documented [facility]* Diagnosis Alcohol withdrawal with inpatient treatment, uncomplicated (HCC)- Primary Alcohol withdrawal with inpatient treatment, uncomplicated (HCC) Severe alcohol use disorder (HCC) Cocaine abuse (HCC) Nondependent cocaine abuse, unspecified Elevated liver enzymes Other nonspecific abnormal serum enzyme levels Panic disorder Panic disorder without agoraphobia [facility]* Diagnosis Alcohol-induced acute pancreatitis, unspecified complication status- Primary Abdominal pain, generalized Alcohol-induced acute pancreatitis, unspecified complication status documented [facility]* Diagnosis Alcohol withdrawal syndrome without complication (HCC)- Primary Alcohol withdrawal syndrome without complication (HCC) Severe malnutrition (CMS/HCC) (HCC) Nutritional marasmus documented [facility]* Diagnosis Pain of upper abdomen- Primary Transaminitis Nonspecific elevation of levels of transaminase or lactic acid dehydrogenase (LDH) Alcohol-induced chronic pancreatitis (CMS/HCC) (HCC) Chronic pancreatitis Alcohol use disorder documented [facility]* Diagnosis Severe alcohol use disorder (HCC) Major depressive disorder, recurrent episode, moderate (HCC) Major depressive disorder, recurrent episode, moderate RODRIGUEZ (generalized anxiety disorder) Generalized anxiety disorder Tourette syndrome Tourette's disorder documented [facility]* Diagnosis Alcohol-induced acute pancreatitis, unspecified complication status- Primary Alcohol-induced acute pancreatitis, unspecified complication status Alcohol withdrawal syndrome without complication (HCC) Pancreatitis, unspecified pancreatitis type Pancreatitis, unspecified pancreatitis type documented [facility]* Diagnosis Acute recurrent pancreatitis- Primary Acute pancreatitis Acute recurrent pancreatitis Acute pancreatitis documented [facility]* Diagnosis Alcohol-induced acute pancreatitis without infection or necrosis- Primary [facility]* Diagnosis Alcohol-induced chronic pancreatitis (CMS/HCC) (HCC)- Primary Chronic pancreatitis Abdominal pain, generalized [facility]* Diagnosis Acute on chronic pancreatitis (CMS/HCC) (HCC)- Primary [facility]* Diagnosis Acute on chronic pancreatitis (CMS/HCC) (HCC)- Primary History of alcohol abuse Nondependent alcohol abuse, in remission Polysubstance use disorder documented [facility]* Diagnosis Alcohol-induced chronic pancreatitis (CMS/HCC) (HCC)- Primary Chronic pancreatitis Pain of upper abdomen Acute on chronic pancreatitis (CMS/HCC) (HCC) documented [facility]* Diagnosis Abdominal pain, unspecified abdominal location- Primary Chronic pancreatitis, unspecified pancreatitis type (HCC) documented [facility]* Diagnosis Alcohol-induced chronic pancreatitis (CMS/HCC) (HCC)- Primary Chronic pancreatitis documented [facility]* Diagnosis Epigastric abdominal pain- Primary Abdominal pain, epigastric Chronic pancreatitis, unspecified pancreatitis type (HCC) documented [facility]* Diagnosis Acute on chronic pancreatitis (CMS/HCC) (HCC) documented [facility]* Diagnosis Alcohol-induced acute pancreatitis without infection or necrosis- Primary [facility]* Diagnosis Severe opioid use disorder (HCC) Severe alcohol use disorder (HCC) Other roasterman (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 [facility]* Diagnosis Severe opioid use disorder (HCC) Motor tic disorder Tic disorder, unspecified RODRIGUEZ (generalized anxiety disorder) Generalized anxiety disorder Major depressive disorder, recurrent episode, moderate (HCC) Major depressive disorder, recurrent episode, moderate documented in this encounter [facility] note* Diagnosis Alcohol induced acute pancreatitis without necrosis or infection- Primary Elevated liver enzymes Other nonspecific abnormal serum enzyme levels documented in this encounter [facility] note* Diagnosis Alcohol induced acute pancreatitis without necrosis or infection- Primary Elevated liver enzymes Other nonspecific abnormal serum enzyme levels Elevated liver enzymes Other nonspecific abnormal serum enzyme levels documented in this encounter [facility] note* Diagnosis Elevated liver enzymes- Primary Other nonspecific abnormal serum enzyme levels documented in this encounter [facility] note* Diagnosis Alcoholic cirrhosis of liver without ascites (CMS/HCC) (HCC)- Primary Alcohol induced acute pancreatitis without necrosis or infection Elevated liver enzymes Other nonspecific abnormal serum enzyme levels History of alcohol abuse Nondependent alcohol abuse, in remission Polysubstance use disorder History of esophagitis [facility] Diagnosis Alcoholic cirrhosis of liver without ascites (HCC)- Primary Alcohol induced acute pancreatitis without necrosis or infection Elevated liver enzymes Other nonspecific abnormal serum enzyme levels History of alcohol abuse Nondependent alcohol abuse, in remission Polysubstance use disorder History of esophagitis documented in this encounter [facility] note* Diagnosis Elevated liver enzymes- Primary Other nonspecific abnormal serum enzyme levels History of esophagitis documented in this encounter [facility] note* Diagnosis Elevated liver enzymes- Primary Other nonspecific abnormal serum enzyme levels History of esophagitis documented in this encounter [facility] note* Diagnosis Extraction of tooth needed- Primary History of esophagitis documented in this encounter [facility] note* Diagnosis Extraction of tooth needed- Primary History of esophagitis documented in this encounter [facility] note* Diagnosis Onset Date Resolution Status Admit Date Anxiety disorder with panic attacks resolved November 30 1:34am Chronic alcohol abuse resolved Nov 1:34am Depression resolved November 30, 2024 1:34am History of drug abuse resolved Nov 1:34am Tobacco abuse resolved November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 General Family Medicine 10/16/23 Core Mounter Relationship Specialty Start Date End Date Tam Hughes DO [address] [facility] [place] [address] PCP - General Family Medicine 10/16/23 Core Mounter Relationship Specialty Start Date End Date Tam Hughes DO [address] [facility] [place] [place] [address] PCP - General Family Medicine 10/16/23 Core Mounter Relationship Specialty Start Date End Date Tam Hughes DO [address] [facility] [place] [address] PCP - General Family Medicine 10/16/23 Core Mounter Relationship Specialty Start Date End Date Tam Hughes DO [address] [facility] [place] [place] [address] PCP - General Family Medicine 10/16/23 Core Mounter Relationship Specialty Start Date End Date Tam Hughes DO [address] [facility] [place] [address] PCP - General Family Medicine 10/16/23 Core Mounter Relationship Specialty Start Date End Date Tam Hughes DO [address] [facility] [place] [address] PCP - General Family Medicine 10/16/23 Core Mounter Relationship Specialty Start Date End Date Tam Hughes DO [address] [facility] [place] [address] PCP - General Family Medicine 10/16/23 Core Mounter Relationship Specialty Start Date End Date Tam Hughes DO [address] [facility] [place] [address] PCP - General Family Medicine 10/16/23 Core Mounter Relationship Specialty Start Date End Date Tam Hughes DO [address] [facility] [place] [address] PCP - General Family Medicine 10/16/23 Core Mounter Relationship Specialty Start Date End Date Tam Hughes DO [address] [facility] [place] [address] PCP - General Family Medicine 10/16/23 Core Mounter Relationship Specialty Start Date End Date Tam Hughes DO [address] [facility] [place] [address] PCP - General Family Medicine 10/16/23 Core Mounter Relationship Specialty Start Date End Date Tam Hughes DO [address] [facility] [place] [address] PCP - General Family Medicine 10/16/23 Core Mounter Relationship Specialty Start Date End Date Tam Hughes DO [address] [facility] [place] [address] PCP - General Family Medicine 10/16/23 Core Mounter Relationship Specialty Start Date End Date Tam Hughes DO [address] [facility] [place] [address] PCP - General Family Medicine 10/16/23 Core Mounter Relationship Specialty Start Date End Date Tam Hughes DO [address] [facility] [place] [place] [address] PCP - General Family Medicine 10/16/23 Core Mounter Relationship Specialty Start Date End Date Tam Hughes DO [address] [facility] [place] [place] [address] PCP - General Family Medicine 10/16/23 Core Mounter Relationship Specialty Start Date End Date Tam Hughes DO [address] [place] [address] PCP - General Family Medicine 10/16/23 Core Mounter Relationship Specialty Start Date End Date Tam Hughes DO [address] [facility] [place] [address] PCP - General Family Medicine 10/16/23 Core Mounter Relationship Specialty Start Date End Date Tma Hughes DO [address] [place] [address] PCP - General Family Medicine 10/16/23 Core Mounter Relationship Specialty Start Date End Date Tam Hughes DO [address] [place] [address] PCP - General Family Medicine 10/16/23 Core Mounter Relationship Specialty Start Date End Date Tam Hughes DO [address] [place] [address] PCP - General Family Medicine 10/16/23 Team [...] 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 [employer] provides no warranty or guarantee of the accuracy or completeness of information in this document.
[2025-02-05 21:50] VITALS: BMI 24.0
[2025-02-05 22:05] VITALS: BP 128/81; PULSE 96; RESP 20; TEMP 36.7; O2SAT 99
[2025-02-05] MEDS: Lactated Ringers 1,000 ML 125 ML IV (22:38)
[2025-02-05] MEDS: 0.9% Saline Lock 10 ML Syringe IV (22:38)
[2025-02-05] MEDS: Potassium Chloride Oral Tablet 20 MEQ 40 MEQ PO (23:11)
[2025-02-05] MEDS: hydrOXYzine PAM 25 MG Capsule 50 MG PO (23:50)
[2025-02-06 02:45] VITALS: BP 138/72; PULSE 82; RESP 16; TEMP 36.6; O2SAT 96
[2025-02-06] MEDS: hydrOXYzine PAM 25 MG Capsule 50 MG PO (04:50)
[2025-02-06 06:37] VITALS: BP 130/73; PULSE 98; RESP 18; TEMP 36.8; O2SAT 96
[2025-02-06 08:31] VITALS: BP 124/78; PULSE 89; RESP 16; TEMP 37.8; O2SAT 100
--- NOTE | 2025-02-06 08:36 | PCM.PN.HOSP ---
Subjective Subjective CIWA score of 2 Objective Data Objective Data Vital Signs: Vital Signs Temp Pulse Resp BP Pulse Ox O2 Del Method 100.1 F H 89 16 124/78 H 100 Room Air 02/06/25 08:31 02/06/25 08:31 02/06/25 08:31 02/06/25 08:31 02/06/25 08:31 02/06/25 08:31 Oxygen Delivery Method Room Air Weight: 181 lb 11.098 oz Body Mass Index (BMI) 24.0 Intake & Output: Intake and Output for Last 24 Hours 02/05/25 02/06/25 02/07/25 03:59 03:59 03:59 Intake Total 800 / 800 2200 / 2200 Balance 800 / 800 2200 / 2200 Lab / Micro Data 02/05/25 19:16 02/05/25 19:16 Labs: Laboratory Results - last 24 hr 02/05/25 19:16: WBC 7.7, RBC 4.78, Hgb 13.8, Hct 40.9, MCV 85.6, MCH 28.9, MCHC 33.7, RDW Std Deviation 45.7 H, RDW Coeff of Jimy 14.6, Plt Count 139 L, MPV 10.3, Immature Gran % (Auto) 0.300, Neut % (Auto) 60.6, Lymph % (Auto) 31.1, Bethel % (Auto) 6.6, Eos % (Auto) 0.9, Baso % (Auto) 0.5, Absolute Neuts (auto) 4.7, Absolute Lymphs (auto) 2.40, Nucleated RBC % 0, Sodium 136, Potassium 3.2 L, Chloride 94 L, Carbon Dioxide 25.3, Anion Gap 17, BUN 3 L, Creatinine 0.69 L, Estim Creat Clear Calc 164.05, Est GFR (MDRD) Non-Af 122, BUN/Creatinine Ratio 4.6 L, Glucose 108 H, Calcium 9.5, Phosphorus 3.3, Magnesium 2.0, Total Bilirubin 2.26 H, Direct Bilirubin 1.41 H, AST 151 H, ALT 41, Alkaline Phosphatase 205 H, Total Protein 8.5 H, Albumin 4.4, Globulin 4.1, Lipase 7 L, Ethyl Alcohol 188.0 H 02/05/25 19:20: Urine Opiates Screen NEGATIVE, U Buprenorphine Qual NEGATIVE, Ur Oxycodone Screen NEGATIVE, Urine Methadone Screen PRESUMPTIVE POSITIVE, Urine Fentanyl Screen NEGATIVE, Ur Barbiturates Screen NEGATIVE, Ur Phencyclidine Scrn NEGATIVE, Ur Amphetamines Screen PRESUMPTIVE POSITIVE, U Benzodiazepines Scrn NEGATIVE, Urine Cocaine Screen PRESUMPTIVE POSITIVE, U Cannabinoids Screen PRESUMPTIVE POSITIVE Radiography Diagnostic Testing: Radiology Impression Chest X-Ray 02/05/25 19:06 IMPRESSION: No acute cardiopulmonary findings. Reading Location: [facility] Physical Exam Narrative General: Alert, Oriented x3, Cooperative, anxious HEENT: Atraumatic, PERRLA, EOMI, Normocephalic Oral: Moist Mucosa Neck: Supple, No JVD Lungs: Diminished, Normal air movement, No rhonchi, No wheeze, No rales Cardiovascular: Regular rate, Regular Rhythm, Normal S1, Normal S2, No murmurs Abdomen: Soft, Non Tender, Non-Distended, No Hepato-splenomegaly Extremities: No edema, Capillary Refill Less than 3 Seconds Skin: No rashes, No breakdown Musculoskeletal: No Tenderness to Palpation of Joints or Extremities Neurological: No focal neurological deficits, moves all extremities Psych/Mental Status: Flat Assessment & Plan Assessment/Plan (1) Admitted to substance misuse detoxification center: PLAN: Plan 1. Alcohol withdrawal/polysubstance abuse/PTSD with anxiety and depression/cirrhosis/tobacco abuse ? Continue with the alcohol withdrawal protocol ? Can resume his home medications ? Discussed cessation of meth and crack as well as his fentanyl ? recommend outpatient follow-up for his cirrhosis ? Continue with Effexor ? Discussed tobacco cessation DVT: Ambulation Charges/Coding Visit Charges Inpatient E&M: 06031 Subs Hosp L2
[2025-02-06] MEDS: Thiamine Hydrochloride 100 MG Tablet PO (08:38)
[2025-02-06] MEDS: Ensure Clear 120 ML Liquid PO ×5 (08:40→22:30)
[2025-02-06 10:09] VITALS: PULSE 89
[2025-02-06] MEDS: Nicotine (PBKC) 21 MG Patch TD (10:09)
[2025-02-06] MEDS: Metoprolol(XL)Succ 50 MG Tablet PO (10:09)
--- NOTE | 2025-02-06 14:50 | CASEMGMT ---
Social Work- SW met with pt to complete SDOH assessment, as pt self reported being homeless. SW introduced self and role; pt agreeable to meeting. Pt easily aroused when SW entered room. Pt present for RAMP program. Pt reports multi-substance use. Pt denies needing any resources at this time for housing or transportation. Pt denies any other needs. SW remains available to follow for additional needs. VANITA Christensen
[2025-02-06 15:00] VITALS: BP 102/57; PULSE 70; RESP 16; TEMP 36.9; O2SAT 97
[2025-02-06 22:25] VITALS: BP 108/63; PULSE 66; RESP 16; TEMP 36.9; O2SAT 98
[2025-02-06] MEDS: 0.9% Saline Lock 10 ML Syringe IV (22:32)
[2025-02-07 02:45] VITALS: BP 108/64; PULSE 79; RESP 18; TEMP 36.5; O2SAT 96
[2025-02-07 07:47] VITALS: BP 108/64; PULSE 71; RESP 16; TEMP 36.8; O2SAT 96
[2025-02-07] MEDS: Thiamine Hydrochloride 100 MG Tablet PO (07:52)
--- NOTE | 2025-02-07 09:35 | PCM.PN.HOSP ---
Subjective Subjective CIWA score 0 Objective Data Objective Data Vital Signs: Vital Signs Temp Pulse Resp BP Pulse Ox O2 Del Method 98.2 F 71 16 108/64 96 Room Air 02/07/25 07:47 02/07/25 07:47 02/07/25 07:47 02/07/25 07:47 02/07/25 07:47 02/07/25 07:47 Oxygen Delivery Method Room Air Weight: 181 lb 11.098 oz Body Mass Index (BMI) 24.0 Intake & Output: Intake and Output for Last 24 Hours 02/06/25 02/07/25 02/08/25 03:59 03:59 03:59 Intake Total 800 / 800 2200 / 2200 Balance 800 / 800 2200 / 2200 Medical Nutrition Assessment Dietitian: Malnutrition Criteria Met Start: 02/06/25 12:44 Freq: Status: Active Protocol: Document 02/06/25 12:44 SLA (Rec: 02/06/25 12:44 SLA [email or web address]) Nutrition Malnutrition Evidence of Yes Malnutrition Exists Malnutrition (severe Social/Behavioral/Environmental ): Evidenced By Suboptimal Energy Intake (Severe),Weight Loss (Severe) Clinical Problem Chronic Disease or Condition Related Malnutrition Etiology related to pt homeless, alcohol/polysubstance abuse, issues w/ n/v d/t pancreatitis and inadequate energy intake Signs/Symptoms as evidenced by po intake meeting <75% of est nutritional needs and ~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 Continue to follow and monitor for changes in pt nutritional status and make additional rec as indicated . Lab / Micro Data 02/05/25 19:16 02/05/25 19:16 Social Homelessness:: Sheltered Physical Exam Narrative General: Alert, Oriented x3, Cooperative, anxious HEENT: Atraumatic, PERRLA, EOMI, Normocephalic Oral: Moist Mucosa Neck: Supple, No JVD Lungs: Diminished, Normal air movement, No rhonchi, No wheeze, No rales Cardiovascular: Regular rate, Regular Rhythm, Normal S1, Normal S2, No murmurs Abdomen: Soft, Non Tender, Non-Distended, No Hepato-splenomegaly Extremities: No edema, Capillary Refill Less than 3 Seconds Skin: No rashes, No breakdown Musculoskeletal: No Tenderness to Palpation of Joints or Extremities Neurological: No focal neurological deficits, moves all extremities Psych/Mental Status: Flat Assessment & Plan Assessment/Plan (1) Admitted to substance misuse detoxification center: PLAN: Plan 1. Alcohol withdrawal/polysubstance abuse/PTSD with anxiety and depression/cirrhosis/tobacco abuse ? Continue with the alcohol withdrawal protocol ? Can resume his home medications ? Discussed cessation of meth and crack as well as his fentanyl ? recommend outpatient follow-up for his cirrhosis ? Continue with Effexor ? Discussed tobacco cessation DVT: Ambulation Charges/Coding Visit Charges Inpatient E&M: 63499 Subs Hosp L2
[2025-02-07 10:23] VITALS: PULSE 71
[2025-02-07] MEDS: Metoprolol(XL)Succ 50 MG Tablet PO (10:23)
[2025-02-07] MEDS: Nicotine (PBKC) 21 MG Patch TD (10:23)
--- NOTE | 2025-02-07 10:58 | ADDICTION ---
Met with the patient to complete RAMP assessments, during which he responded appropriately to all questions. We discussed the option of inpatient treatment, and he expressed agreement with this recommendation. Additionally, we reviewed behaviors associated with addiction, as well as strategies for managing anxiety and cravings following discharge. The patient reported that he has plans to go to [facility] in [place] but will need to go home from detox upon discharge. He reports that he drove here himself and did not want me to arrange admission to [facility].
[2025-02-07 14:18] VITALS: BP 102/64; PULSE 81; RESP 16; TEMP 36.2; O2SAT 97
[2025-02-07] MEDS: Ensure Plus High Protein 120 ML LIQUID PO ×2 (17:16→20:14)
[2025-02-07 20:07] VITALS: BP 97/66; PULSE 67; RESP 16; TEMP 36.6; O2SAT 97
[2025-02-08 02:28] VITALS: BP 105/66; PULSE 63; RESP 18; TEMP 36.6; O2SAT 96
[2025-02-08 08:00] VITALS: BP 90/60; PULSE 65; RESP 16; TEMP 36.8; O2SAT 95
[2025-02-08 08:03] VITALS: BP 90/60; PULSE 65
[2025-02-08] MEDS: Thiamine Hydrochloride 100 MG Tablet PO (08:03)
--- NOTE | 2025-02-08 08:46 | PN.HOSP_ITS ---
Subjective Subjective CIWA score of 0 Objective Data Objective Data Vital Signs: Vital Signs Temp Pulse Resp BP Pulse Ox O2 Del Method 98.3 F 65 16 90/60 95 Room Air 02/08/25 08:00 02/08/25 08:03 02/08/25 08:00 02/08/25 08:03 02/08/25 08:00 02/08/25 08:00 Oxygen Delivery Method Room Air Weight: 181 lb 11.098 oz Body Mass Index (BMI) 24.0 Intake & Output: Intake and Output for Last 24 Hours 02/07/25 02/08/25 02/09/25 03:59 03:59 03:59 Intake Total 2200 / 2200 500 / 500 Balance 2200 / 2200 500 / 500 Medical Nutrition Assessment Dietitian: Malnutrition Criteria Met Start: 02/06/25 12:44 Freq: Status: Active Protocol: Document 02/06/25 12:44 SLA (Rec: 02/06/25 12:44 SLA [email or web address]) Nutrition Malnutrition Evidence of Yes Malnutrition Exists Malnutrition (severe Social/Behavioral/Environmental ): Evidenced By Suboptimal Energy Intake (Severe),Weight Loss (Severe) Clinical Problem Chronic Disease or Condition Related Malnutrition Etiology related to pt homeless, alcohol/polysubstance abuse, issues w/ n/v d/t pancreatitis and inadequate energy intake Signs/Symptoms as evidenced by po intake meeting <75% of est nutritional needs and ~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 Continue to follow and monitor for changes in pt nutritional status and make additional rec as indicated . Lab / Micro Data 02/05/25 19:16 02/05/25 19:16 Social Homelessness:: Sheltered Physical Exam Narrative General: Alert, Oriented x3, Cooperative, no acute distress HEENT: Atraumatic, PERRLA, EOMI, Normocephalic Oral: Moist Mucosa Neck: Supple, No JVD Lungs: Diminished, Normal air movement, No rhonchi, No wheeze, No rales Cardiovascular: Regular rate, Regular Rhythm, Normal S1, Normal S2, No murmurs Abdomen: Soft, Non Tender, Non-Distended, No Hepato-splenomegaly Extremities: No edema, Capillary Refill Less than 3 Seconds Skin: No rashes, No breakdown Musculoskeletal: No Tenderness to Palpation of Joints or Extremities Neurological: No focal neurological deficits, moves all extremities Psych/Mental Status: Flat Assessment & Plan Assessment/Plan (1) Admitted to substance misuse detoxification center: PLAN: Plan 1. Alcohol withdrawal/polysubstance abuse/PTSD with anxiety and depression/cirrhosis/tobacco abuse ? Continue with the alcohol withdrawal protocol ? Can resume his home medications ? Discussed cessation of meth and crack as well as his fentanyl ? recommend outpatient follow-up for his cirrhosis ? Continue with Effexor ? Discussed tobacco cessation ? She would like to consider inpatient rehab however he wants to go home first, we will try to coordinate discharge with when he will be able to go to inpatient rehab if able DVT: Ambulation Charges/Coding Visit Charges Inpatient E&M: 77733 Subs Hosp L2
--- NOTE | 2025-02-08 09:38 | DCINST_ITS ---
Discharge Instructions DC O2, CPAP, BIPAP needs Home O2 Discharge instructions: No Dressing / Incision Discharge Activity: Return to Normal Activity Dressing / Incision Call your doctor if you observe: Fever of 101 or Higher, Shortness of breath, Dizziness, Fainting spells, Swelling in the ankles, Chest pain and Increased palpitations (irregular heartbeat) Follow Up Care Test Results: Test results from this visit will be discussed in further detail at your follow- up appointment, if applicable. Discharge Plan Admission Admit Date/Time: 02/05/25 19:15 Attending Provider: Idris Toscano Primary Care Provider: Care Physician,No Primary Consulting Providers: Bessy Cowan Discharge Orders/Prescriptions Prescriptions: Continued venlafaxine 75 mg tablet 75 mg PO DAILY clonidine HCl 0.1 mg tablet 0.1 mg PO BID melatonin 10 mg capsule 20 mg PO QHS pantoprazole [Protonix] 20 mg tablet,delayed release (DR/EC) 20 mg PO Q12H metoprolol succinate 50 mg tablet extended release 24 hr 50 mg PO DAILY hydroxyzine HCl 50 mg tablet 50 mg PO TID ondansetron 4 mg tablet,disintegrating 4 mg PO Q8H PRN PRN (Reason: nausea/vomiting) Referrals / Follow Up: Care Physician,No Primary [Primary Care Provider, Medical] Disposition Disposition (needs filled in before D/C Order can be placed): Home, Self Care
--- NOTE | 2025-02-08 10:09 | PHA.DC.MR.R ---
Pharmacy [facility] Reconciliation Pharmacy Service has performed discharge medication reconciliation for this patient. The patient's discharge medication list was reviewed for discrepancies and discrepancies were resolved. Medications at Discharge Home Medications clonidine HCl 0.1 mg tablet 0.1 mg PO BID anxiety 11/29/24 melatonin 10 mg capsule 20 mg PO QHS sleep 11/29/24 venlafaxine 75 mg tablet 75 mg PO DAILY anxiety 11/29/24 hydroxyzine HCl 50 mg tablet 50 mg PO TID 02/05/25 metoprolol succinate 50 mg tablet,extended release 24 hr 50 mg PO DAILY 02/05/25 ondansetron 4 mg disintegrating tablet 4 mg PO Q8H PRN PRN nausea/vomiting 02/05/25 pantoprazole 20 mg tablet,delayed release (Protonix) 20 mg PO Q12H 02/05/25
--- NOTE | 2025-02-08 12:05 | DS.PCM_ITS ---
Providers Date of Admission: 02/05/25 Primary Care Physician: No Primary Care Phys Reason For Visit: ETOH DETOXIFICATION Diagnosis Discharge Diagnosis (1) Admitted to substance misuse detoxification center: Status: Acute Code(s): Z78.9 - Other specified health status Medications at Discharge Home Medications clonidine HCl 0.1 mg tablet 0.1 mg PO BID anxiety 11/29/24 melatonin 10 mg capsule 20 mg PO QHS sleep 11/29/24 venlafaxine 75 mg tablet 75 mg PO DAILY anxiety 11/29/24 hydroxyzine HCl 50 mg tablet 50 mg PO TID 02/05/25 metoprolol succinate 50 mg tablet,extended release 24 hr 50 mg PO DAILY 02/05/25 ondansetron 4 mg disintegrating tablet 4 mg PO Q8H PRN PRN nausea/vomiting 02/05/25 pantoprazole 20 mg tablet,delayed release (Protonix) 20 mg PO Q12H 02/05/25 Hospital Course Operations None Procedures None Summary of Care Provided Minutes Spent on Discharge: 31 Hospital Course: Per HPI: The patient is a 36 y/o M w/ PMHx: Chronic tachycardia/palpitations, Polysubstance abuse (uses varies agents including crack/meth/fentanyl but reportedly not regularly and denies wanting any detox for this or requiring any detox for specifically opiate use), EtOH abuse (~1-2 gallon vodka daily, drinking upon arrival into the ED), Chronic alcoholic associated pancreatitis, PTSD/Anxiety and Depression/Tourette's disease, Tobacco use, EtOH 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 He does report chronic pancreatitis associated with his alcohol abuse and has intermittent nausea and vomiting frequently surviving on ensures. In the ED workup included T98.3, heart 112, BP 159/98, respiratory rate 18, 98% on room air with most recent repeat vitals T98.3, heart rate 85, BP 166/84, respiratory rate 16, 100% room air, pending of alcohol level, lipase, CBC, BMP, liver profile, UDS upon request evaluation of patient. Given patient significant anxiety and agitation in the ED while awaiting level return patient administered phenobarbital 97.2 mg p.o. x 1 and Ativan 2 mg IV x 1. Hospital Course: 1. Alcohol withdrawal/polysubstance abuse/PTSD with anxiety and depression/cirrhosis/tobacco abuse?39-year-old male presents to the hospital requesting detox from alcohol, he does also use meth and fentanyl but this was irregular and he did not want to start detox for this as he has not used recently. Detox course was uneventful, CIWA scores today on the day of discharge were 0. He did meet with 180 and did request to go inpatient rehab but he wants to go home first drive himself to the inpatient facility at [facility] in [place]. I discussed with him the possibility for discharge and he expressed understanding of the risk benefits of going home and wants to go home today. He can resume all of his home medications on discharge no dosage changes were made. Medical Records Data Medical Nutrition Assessment Dietitian: Malnutrition Criteria Met Start: 02/06/25 12:44 Freq: Status: Active Protocol: Document 02/06/25 12:44 SLA (Rec: 02/06/25 12:44 SLA [email or web address]) Nutrition Malnutrition Evidence of Yes Malnutrition Exists Malnutrition (severe Social/Behavioral/Environmental ): Evidenced By Suboptimal Energy Intake (Severe),Weight Loss (Severe) Clinical Problem Chronic Disease or Condition Related Malnutrition Etiology related to pt homeless, alcohol/polysubstance abuse, issues w/ n/v d/t pancreatitis and inadequate energy intake Signs/Symptoms as evidenced by po intake meeting <75% of est nutritional needs and ~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 Continue to follow and monitor for changes in pt nutritional status and make additional rec as indicated . Homelessness:: Sheltered Weight / BMI Weight Weight: 181 lb 11.098 oz Body Mass Index (BMI) 24.0 ABG / Lab / Microbiology Data 02/05/25 19:16 02/05/25 19:16 D/C Instructions Call your doctor if you observe: Fever of 101 or Higher, Shortness of breath, Dizziness, Fainting spells, Swelling in the ankles, Chest pain and Increased palpitations (irregular heartbeat) DC O2, CPAP, BIPAP Needs Home O2 Discharge instructions: No Meaningful Use Info Meaningful Use Meaningful Use Diagnoses (Choose all that apply): None applicable Discharge Plan Admission Admit Date/Time: 02/05/25 19:15 Attending Provider: Idris Toscano Primary Care Provider: Care Physician,No Primary Consulting Providers: Bessy Cowan Discharge Orders/Prescriptions Prescriptions: Continued venlafaxine 75 mg tablet 75 mg PO DAILY clonidine HCl 0.1 mg tablet 0.1 mg PO BID melatonin 10 mg capsule 20 mg PO QHS pantoprazole [Protonix] 20 mg tablet,delayed release (DR/EC) 20 mg PO Q12H metoprolol succinate 50 mg tablet extended release 24 hr 50 mg PO DAILY hydroxyzine HCl 50 mg tablet 50 mg PO TID ondansetron 4 mg tablet,disintegrating 4 mg PO Q8H PRN PRN (Reason: nausea/vomiting) Referrals / Follow Up: Care Physician,No Primary [Primary Care Provider, Medical] Disposition Disposition (needs filled in before D/C Order can be placed): Home, Self Care Charges/Coding Visit Charges Inpatient E&M: 58085 Disch Hosp >30min
== END 2025-02-08 12:21 | disposition home or self-care (01) | DRG 775 ==
LOC: ED 19:31 → MS3 21:21
PROVIDERS: Admitting Provider Family Medicine; Emergency Provider Emergency Medicine; Visit Provider Family Medicine
DX: F10.139 Alcohol abuse with withdrawal, unspecified (principal); E43 Unspecified severe protein-calorie malnutrition; K70.30 Alcoholic cirrhosis of liver without ascites; F32.A Depression, unspecified; F17.210 Nicotine dependence, cigarettes, uncomplicated; F41.9 Anxiety disorder, unspecified; F43.10 Post-traumatic stress disorder, unspecified; Z79.899 Other long term (current) drug therapy; Z59.00 Homelessness unspecified; Z68.24 Body mass index [BMI] 24.0-24.9, adult
CPT/HCPCS: 71045; 80048; 80076; 80307; 82077; 83690; 83735; 84100; 85025; 93005; 97802; 99284; A4216